=== PATIENT | male | born 1970 | race African-American/Black ===

== ENCOUNTER 2017-04-18 16:59 | Inpatient (IN) | payer OTHER ==
[~2017-04-18] VITALS: Ht 185.4 cm; Wt 63.0 kg
[2017-04-18 17:12] VITALS: BP 157/107; PULSE 55; RESP 16; TEMP 98.5; O2SAT 99
[2017-04-18] MEDS ORDERED: SODIUM CHLOR 0.9% 1000 ML INJ 1,000 ML IV SCH ×2 (17:16→18:37)
--- NOTE | 2017-04-18 17:20 | PD ---
HPI Chief Complaint: GI Complaint Time Seen by Provider: 17:17 Travel History International Travel<30 days: No Contact w/Intl Traveler<30days: No Traveled to known affect area: No History of Present Illness HPI 47-year-old male presents to the emergency department for evaluation of nausea and vomiting for 2 weeks. Patient states that for 2 weeks he's had about 2 episodes of nonbloody nonbilious emesis per day every day. States that he has also had loose watery stool for the past 2 weeks. He states that there are no aggravating or alleviating factors. Denies any abdominal pain, fever, chills, chest pain, shortness of breath, dysuria, hematuria, cough or cold symptoms, body aches. Denies any prior abdominal surgeries. Denies any recent travel or sick contacts. The patient states that he previously drank 8 beers daily until about 2 months ago when he quit drinking altogether. He also quit smoking 2 months ago. No other complaints. PFSH Past Medical History Medical History: Denies Significant Hx Immunizations Current: Yes Past Surgical History Surgical History: No Previous Surgery Social History Alcohol Use: No (quit 02/2017) Tobacco Use: No (quit 02/2017) Substance Use: No Allergies-Medications (Allergen,Severity, Reaction): Coded Allergies: No Known Allergies (Unverified , 04/18/17) Reported Meds & Prescriptions Reported Meds & Active Scripts Active No Active Prescriptions or Reported Medications Review of Systems Except as stated in HPI: all other systems reviewed are Neg Physical Exam Narrative GENERAL: Well-nourished and well-developed pleasant male patient in no acute distress who is nontoxic appearing. SKIN: Warm and dry. HEAD: Normocephalic and atraumatic. EYES: No injection, drainage, or hyphema noted. PERRLA. EOMI. ENT: No nasal drainage noted. Oropharynx is clear. NECK: Supple and the trachea is midline. CARDIOVASCULAR: Regular rate and rhythm. RESPIRATORY: Breath sounds are equal bilaterally with no accessory muscle use, wheezing, rhonchi, or crackles. GASTROINTESTINAL: Abdomen is soft, non-tender, and nondistended. No rebound tenderness or guarding. Negative McBurney's point. Negative Powers's sign. MUSCULOSKELETAL: No obvious deformities, swelling, cyanosis, or ecchymosis is present throughout the upper and lower extremities. Patient has full range of motion without any signs of neurovascular compromise. NEUROLOGICAL: Awake, alert, and oriented. Normal speech and gait. Cranial nerves are grossly intact. Data Data Last Documented VS Vital Signs Date Time Temp Pulse Resp B/P Pulse Ox O2 Delivery O2 Flow Rate FiO2 04/18/17 17:12 98.5 55 16 157/107 99 Room Air Orders Complete Blood Count With Diff (04/18/17 17:16) Comprehensive Metabolic Panel (04/18/17 17:16) Lipase (04/18/17 17:16) Urinalysis - C+S If Indicated (04/18/17 17:16) Iv Access Insert/Monitor (04/18/17 17:16) Ecg Monitoring (04/18/17 17:16) Oximetry (04/18/17 17:16) Ondansetron Inj (Zofran Inj) (04/18/17 17:30) Sodium Chlor 0.9% 1000 Ml Inj (Ns 1000 M (04/18/17 17:16) Sodium Chloride 0.9% Flush (Ns Flush) (04/18/17 17:30) Sodium Chlor 0.9% 1000 Ml Inj (Ns 1000 M (04/18/17 18:37) Urine Culture (04/18/17 18:35) Potassium Chlor 20 Meq Premix (Kcl 20 Me (04/18/17 19:00) Admit Order (Ed Use Only) (04/18/17 19:06) Labs Laboratory Tests Test 04/18/17 04/18/17 17:26 18:35 White Blood Count 5.0 TH/MM3 Red Blood Count 4.99 MIL/MM3 Hemoglobin 14.2 GM/DL Hematocrit 42.6 % Mean Corpuscular Volume 85.4 FL Mean Corpuscular Hemoglobin 28.4 PG Mean Corpuscular Hemoglobin 33.2 % Concent Red Cell Distribution Width 15.3 % Platelet Count 282 TH/MM3 Mean Platelet Volume 8.6 FL Neutrophils (%) (Auto) 78.7 % Lymphocytes (%) (Auto) 10.1 % Monocytes (%) (Auto) 10.2 % Eosinophils (%) (Auto) 0.2 % Basophils (%) (Auto) 0.8 % Neutrophils # (Auto) 4.0 TH/MM3 Lymphocytes # (Auto) 0.5 TH/MM3 Monocytes # (Auto) 0.5 TH/MM3 Eosinophils # (Auto) 0.0 TH/MM3 Basophils # (Auto) 0.0 TH/MM3 CBC Comment DIFF FINAL Differential Comment Sodium Level 134 MEQ/L Potassium Level 3.0 MEQ/L Chloride Level 97 MEQ/L Carbon Dioxide Level 21.9 MEQ/L Anion Gap 15 MEQ/L Blood Urea Nitrogen 14 MG/DL Creatinine 1.37 MG/DL Estimat Glomerular Filtration 67 ML/MIN Rate Random Glucose 87 MG/DL Calcium Level 9.4 MG/DL Total Bilirubin 3.5 MG/DL Aspartate Amino Transf 96 U/L (AST/SGOT) Alanine Aminotransferase 96 U/L (ALT/SGPT) Alkaline Phosphatase 762 U/L Total Protein 7.4 GM/DL Albumin 3.1 GM/DL Lipase 4916 U/L Urine Color DARK-BROWN Urine Turbidity HAZY Urine pH 6.0 Urine Specific [place] 1.031 Urine Protein 100 mg/dL Urine Glucose (UA) NEG mg/dL Urine Ketones NEG mg/dL Urine Occult Blood NEG Urine Nitrite NEG Urine Bilirubin MOD Urine Urobilinogen 8.0 MG/DL Urine Leukocyte Esterase TRACE Urine RBC 2 /hpf Urine WBC 17 /hpf Urine Squamous Epithelial <1 /hpf Cells Urine Hyaline Casts 4 /lpf Urine Mucus FEW /lpf Microscopic Urinalysis Comment CULTURE INDICATED MDM Medical Decision Making Medical Screen Exam Complete: Yes Emergency Medical Condition: Yes Differential Diagnosis Dehydration versus a left-sided abnormality versus pancreatitis versus gastritis versus GERD Narrative Course 47-year-old male presents to the emergency department for evaluation of nausea, vomiting and loose stools for 2 weeks. Patient is afebrile, vital signs are stable. Abdominal examination is benign. IV access is obtained, labs of been drawn and sent. Patient is placed on cardiac telemetry and pulse oximetry monitoring. Patient is administered IV fluids and Zofran 4 mg IV. CBC is unremarkable. CMP shows hypokalemia with a potassium of 3.0. Dehydration with a creatinine 1.37, GFR 67. Elevated LFTs and bilirubin. Lipase is 4916. The patient has acute pancreatitis and dehydration. He'll be admitted to medicine service for IV hydration. I discussed the case with my attending physician Dr. Richards who is aware of the patients history, physical examination findings, and treatment plan. Physician Communication Physician Communication I spoke with Dr. Hardwick [facility] who agrees to admit the patient to his service. Diagnosis Primary Impression: Acute pancreatitis Qualified Code: K85.20 - Alcohol-induced acute pancreatitis, unspecified complication status Additional Impression: Mild dehydration Admitting Information Admitting Physician Requests: Admit Scripts No Active Prescriptions or Reported Meds Deonna Medina Apr 18, 2017 17:20
[2017-04-18] MEDS ORDERED: ONDANSETRON HCL 4 MG/2 ML VIAL IVP ONE (17:30)
[2017-04-18 18:01] LABS: BASOPHIL % 0.8 % (0.0-2.0); EOSINOPHIL % 0.2 % (0.0-4.0); HEMATOCRIT 42.6 % (39.0-51.0); HEMO FLAGS DIFF FINAL; LYMPH % 10.1 % (9.0-44.0); LYMPHOCYTE # 0.5 TH/MM3 (1.0-4.8); MEAN CELL VOLUME 85.4 FL (80.0-100.0); MEAN CORPUSCULAR HEMOGLOBIN 28.4 PG (27.0-34.0); MEAN CORPUSCULAR HGB CONC 33.2 % (32.0-36.0); MONO % 10.2 % (0.0-8.0); NEUT % 78.7 % (16.0-70.0); PLATELET COUNT 282 TH/MM3 (150-450); RED BLOOD COUNT 4.99 MIL/MM3 (4.50-5.90); RED CELL DISTRIBUTION WIDTH 15.3 % (11.6-17.2)
[2017-04-18 18:39] LABS: ALKALINE PHOSPHATASE 762 U/L (45-117); TOTAL BILIRUBIN ADULT 3.5 MG/DL (0.2-1.0)
[2017-04-18 18:45] LABS: ALT (GPT) 96 U/L (12-78); ANION GAP 15 MEQ/L (5-15); AST (GOT) 96 U/L (15-37); BICARBONATE 21.9 MEQ/L (21.0-32.0); BLOOD UREA NITROGEN 14 MG/DL (7-18); CHLORIDE 97 MEQ/L (98-107); GLOMERULAR FILTRATION RATE 67 ML/MIN (>89); SODIUM (NA) 134 MEQ/L (136-145)
[2017-04-18 18:50] LABS: BLOOD, URINE NEG (NEG); GLUCOSE,URINE NEG (NEG); HYALINE CAST, URINE 4 /lpf (RARE); KETONE, URINE NEG (NEG); MUCUS URINE FEW /lpf (OCC); NITRITE,URINE NEG (NEG); SQUAMOUS EPITHELIAL CELL URINE <1 /hpf (0-5)
[2017-04-18 18:51] LABS: COMMENT (UR) CULTURE INDICATED; CULTURE IF INDICATED CULTURE INDICATED; URINE COLOR DARK-BROWN (YELLW/STRAW)
[2017-04-18] MEDS ORDERED: NALOXONE HCL 0.4 MG/ML AMP IV PRN (19:30)
[2017-04-18] MEDS ORDERED: LACTULOSE SYRUP 20 GM/30 ML CUP PO PRN (19:30)
[2017-04-18] MEDS ORDERED: MAGNESIUM HYDROXIDE SUSP 30 ML CUP PO PRN (19:30)
[2017-04-18] MEDS ORDERED: BISACODYL 10 MG SUPP RECTAL PRN (19:30)
[2017-04-18] MEDS ORDERED: SENNOSIDES 8.6 MG TAB PO PRN (19:30)
[2017-04-18] MEDS ORDERED: MORPHINE SULFATE 4 MG/ML INJ IV PRN ×2 (19:30)
--- NOTE | 2017-04-18 19:54 | HHI.HP ---
[facility] Service [place] [facility] Primary Care Physician No Primary Care Physician Admission Diagnosis Acute Pancreatitis, Dehydration Diagnoses: Chief Complaint: N/V/D and abdominal pain Travel History International Travel<30 Days: No Contact w/Intl Traveler <30 Da: No Traveled to Known Affected Are: No History of Present Illness Written by JITENDRA Terrazas acting as scribe for Dr. Barrera] on 04/18/17 at 19:53. 47 y/o male with no medical history presented to the ED with complaints of abdominal pain, nausea and vomiting. Patient states for the last 2 weeks he has not been able to keep anything down and he has been vomiting at least twice a day, with watery stools. Denies any blood in his emesis or stools. Patient states he used to be a heavy drinker but quit 2 months ago. Denies any chest pain, shortness of breath, fever or chills. Patient does complain of a nonproductive cough, that has been getting worse, he also states he was a heavy smoker up until about 2 months ago. Review of Systems Constitutional: DENIES: Fever, Chills Respiratory: COMPLAINS OF: Cough, DENIES: Sputum production, Shortness of breath Cardiovascular: DENIES: Chest pain, Lower Extremity Edema Gastrointestinal: COMPLAINS OF: Abdominal pain, Diarrhea, Nausea, Vomiting Genitourinary: DENIES: Hematuria, Dysuria Musculoskeletal: DENIES: Back pain, Neck pain Integumentary: DENIES: Rash Hematologic/lymphatic: DENIES: Lymphadenopathy Immunologic/allergic: DENIES: Urticaria Neurologic: DENIES: Headache Past Family Social History Past Medical History Patient denies any medical history Past Surgical History Patient denies any surgical history Reported Medications Reported Meds & Active Scripts Active No Active Prescriptions or Reported Medications Allergies: Coded Allergies: No Known Allergies (Unverified , 04/18/17) Active Ordered Medications Current Medications Medications (Trade) Dose Ordered Sig/Shyla Route Start Time Stop Time Status Last Admin Sodium Chloride 2 ml 2 ml UNSCH PRN IV FLUSH 04/18/17 17:30 (KCl 20 Meq Premix Inj) 100 ml @ 50 mls/hr Q2H IV 04/18/17 19:00 04/18/17 22:59 04/18/17 19:59 (Zofran Inj) 4 mg Q6H PRN IVP 04/18/17 19:30 (Morphine Inj) 2 mg Q3H PRN IV 04/18/17 19:30 (Morphine Inj) 4 mg Q3H PRN IV 04/18/17 19:30 (Narcan Inj) 0.4 mg UNSCH PRN IV 04/18/17 19:30 (Porsha-Colace) 1 tab BID PO 04/18/17 21:00 (Milk Of Magnesia Liq) 30 ml Q12H PRN PO 04/18/17 19:30 (Senokot) 17.2 mg Q12H PRN PO 04/18/17 19:30 (Dulcolax Supp) 10 mg DAILY PRN RECTAL 04/18/17 19:30 Lactulose 30 ml 30 ml DAILY PRN PO 04/18/17 19:30 Potassium Chloride/Sodium Chloride 1,000 ml @ 125 mls/hr Q8H IV 04/19/17 02:00 (NS 1000 ml Inj) 1,000 ml @ 125 mls/hr Q8H IV 04/18/17 20:00 04/18/17 20:00 Family History Patient denies any heart disease or cancer or any other family history Social History Tobacco use: Quit 2 months ago, 1 PPD prior for many years Alcohol use: Quit 2 months ago, 8 pk a day prior Physical Exam Vital Signs Vital Signs Date Time Temp Pulse Resp B/P Pulse Ox O2 Delivery O2 Flow Rate FiO2 04/18/17 17:12 98.5 55 16 157/107 99 Room Air Physical Exam GENERAL: This is a well-nourished, well-developed patient, in no apparent distress. SKIN: No rashes, ecchymoses or lesions. Cool and dry. HEAD: Atraumatic. Normocephalic. No temporal or scalp tenderness. EYES: Pupils equal round and reactive. Extraocular motions intact. No scleral icterus. No injection or drainage. ENT: Nose without bleeding, purulent drainage or septal hematoma. Throat without erythema, tonsillar hypertrophy or exudate. Uvula midline. Airway patent. Poor dentition. NECK: Trachea midline. No JVD or lymphadenopathy. Supple, nontender, no meningeal signs. CARDIOVASCULAR: Regular rate and rhythm without murmurs, gallops, or rubs. RESPIRATORY: Clear to auscultation. Breath sounds equal bilaterally. No wheezes , rales, or rhonchi. GASTROINTESTINAL: Abdomen soft, epigastric tenderness, nondistended. No hepato- splenomegaly, or palpable masses. No guarding. MUSCULOSKELETAL: Extremities without clubbing, cyanosis, or edema. No joint tenderness, effusion, or edema noted. No calf tenderness NEUROLOGICAL: Awake and alert. Motor and sensory grossly within normal limits. Normal speech. Laboratory Laboratory Tests Test 04/18/17 04/18/17 17:26 18:35 White Blood Count 5.0 Red Blood Count 4.99 Hemoglobin 14.2 Hematocrit 42.6 Mean Corpuscular Volume 85.4 Mean Corpuscular Hemoglobin 28.4 Mean Corpuscular Hemoglobin 33.2 Concent Red Cell Distribution Width 15.3 Platelet Count 282 Mean Platelet Volume 8.6 Neutrophils (%) (Auto) 78.7 Lymphocytes (%) (Auto) 10.1 Monocytes (%) (Auto) 10.2 Eosinophils (%) (Auto) 0.2 Basophils (%) (Auto) 0.8 Neutrophils # (Auto) 4.0 Lymphocytes # (Auto) 0.5 Monocytes # (Auto) 0.5 Eosinophils # (Auto) 0.0 Basophils # (Auto) 0.0 CBC Comment DIFF FINAL Differential Comment Sodium Level 134 Potassium Level 3.0 Chloride Level 97 Carbon Dioxide Level 21.9 Anion Gap 15 Blood Urea Nitrogen 14 Creatinine 1.37 Estimat Glomerular Filtration 67 Rate Random Glucose 87 Calcium Level 9.4 Total Bilirubin 3.5 Aspartate Amino Transf 96 (AST/SGOT) Alanine Aminotransferase 96 (ALT/SGPT) Alkaline Phosphatase 762 Total Protein 7.4 Albumin 3.1 Lipase 4916 Urine Color DARK-BROWN Urine Turbidity HAZY Urine pH 6.0 Urine Specific [place] 1.031 Urine Protein 100 Urine Glucose (UA) NEG Urine Ketones NEG Urine Occult Blood NEG Urine Nitrite NEG Urine Bilirubin MOD Urine Urobilinogen 8.0 Urine Leukocyte Esterase TRACE Urine RBC 2 Urine WBC 17 Urine Squamous Epithelial <1 Cells Urine Hyaline Casts 4 Urine Mucus FEW Microscopic Urinalysis Comment CULTURE INDICATED Date/Time Procedure Status Source Growth 04/18/17 18:35 Urine Culture Received Urine Clean Catch Pending Result Diagram: 04/18/17 1726 04/18/17 1726 Assessment and Plan Problem List: (1) Acute pancreatitis ICD Code: K85.90 Status: Acute (2) Transaminitis ICD Code: R74.0 Status: Acute (3) ALDO (acute kidney injury) ICD Code: N17.9 Status: Acute Assessment and Plan 47 y/o male with no medical history presented to the ED with complaints of abdominal pain, nausea and vomiting. Patient states for the last 2 weeks he has not been able to keep anything down and he has been vomiting at least twice a day, with watery stools. Acute pancreatitis, lipase 4916, history of alcohol abuse, patient quit 2 months ago -IVF hydration with NS w/ 20 K -Nothing by mouth -Pain management with IV morphine -Lipase in a.m. Transaminitis, likely due to nausea/vomiting, dehydration, history of alcohol abuse AST 96, ALT 96 -CMP in a.m., continue to trend Acute kidney injury, creatinine 1.37, unknown baseline suspected due to dehydration -Continue IVF as above -CMP in a.m. Hypokalemia, potassium 3.0 -Supplement given, recheck in a.m. Cough -- check CXR DVT prophylaxis: SCDs This note was transcribed by francy Vásquez. I, Dr. Rebel Hardwick personally performed the history, physical exam, and medical decision making; and confirmed the accuracy of the information in the transcribed note. Authenticated by Dr. Rebel Hardwick on 04/18/17 at 21:04. Discussed Condition With Patient, RN, and ED physician Physician Certification 2 Midnight Certification Type: Admission for Inpatient Services Order for Inpatient Services The services are ordered in accordance with Medicare regulations or non- Medicare payer requirements, as applicable. In the case of services not specified as inpatient-only, they are appropriately provided as inpatient services in accordance with the 2-midnight benchmark. Estimated LOS (days): 3 days is the estimated time the patient will need to remain in the hospital, assuming treatment plan goals are met and no additional complications. Post-Hospital Plan: Home Problem Qualifiers (1) Acute pancreatitis: Qualified Code: K85.20 - Alcohol-induced acute pancreatitis, unspecified complication status Leatha Vásquez Apr 18, 2017 19:54 Rebel Hardwick MD Apr 18, 2017 21:04
[2017-04-18 19:58] VITALS: BP 143/67; PULSE 81; RESP 17; O2SAT 99
[2017-04-18] MEDS: POTASSIUM CHLOR 20 MEQ PREMIX 100 ML IV SCH ×2 (19:59→22:12)
[2017-04-18] MEDS: SODIUM CHLOR 0.9% 1000 ML INJ 1,000 ML IV SCH (20:00)
[2017-04-18] MEDS ORDERED: NS + KCL 20 MEQ INJ 1,000 ML IV SCH (21:00)
[2017-04-18] MEDS: DOCUSATE SODIUM 50 MG/SENNA 8.6 MG TAB PO SCH (21:00)
[2017-04-18 21:18] VITALS: BP 158/98; PULSE 74; RESP 18; TEMP 97.8; O2SAT 100
[2017-04-18 21:26] VITALS: PULSE 74
--- NOTE | 2017-04-18 21:39 | RADRPT ---
EXAM DATE/TIME: 04/18/2017 21:18 [facility] COMPARISON: No previous studies available for comparison. INDICATIONS : Cough MEDICAL HISTORY : Pancreatitis. SURGICAL HISTORY : None. ENCOUNTER: Initial ACUITY: 1 day PAIN SCORE: 0/10 LOCATION: Bilateral chest FINDINGS: A single AP semierect view of the chest was obtained and demonstrates blunting of the right costophre gilberto angle with hazy opacity at the right lung base. There is a right paratracheal mass measuring up t o approximately 4.3 cm in greatest transverse diameter and 7.3 cm in caudocranial dimension. The left lung is clear. The heart size is at the upper limits of normal. The bony thorax is intact. CONCLUSION: 1. Right hilar mass which could indicate adenopathy. 2. Right effusion with abnormal opacity at the right lung base which may indicate infiltrate. Goldy Suarez MD on April 18, 2017 at 21:36 Board Certified Radiologist. This report was verified electronically.
[2017-04-18] MEDS: ONDANSETRON HCL 4 MG/2 ML VIAL IVP PRN (22:11)
[2017-04-18] MEDS: SODIUM CHLORIDE 0.9% FLUSH 10 ML FLUSH IV FLUSH PRN (22:12)
[2017-04-19] VITALS (7 sets, daily range): BP systolic 146–188; BP diastolic 81–100; PULSE 72–79; RESP 18; TEMP 97.4–98.1; O2SAT 95–96
[2017-04-19] MEDS: NS + KCL 20 MEQ INJ 1,000 ML IV SCH ×4 (00:18→20:23)
[2017-04-19] MEDS: SODIUM CHLOR 0.9% 1000 ML INJ 1,000 ML IV SCH ×2 (04:00→12:00)
[2017-04-19 07:42] LABS: AUTOMATED NEUTROPHIL # 3.2 TH/MM3 (1.8-7.7); BASOPHIL % 0.8 % (0.0-2.0); EOSINOPHIL % 0.3 % (0.0-4.0); HEMATOCRIT 37.8 % (39.0-51.0); HEMO FLAGS DIFF FINAL; LYMPH % 10.1 % (9.0-44.0); LYMPHOCYTE # 0.4 TH/MM3 (1.0-4.8); MEAN CELL VOLUME 85.7 FL (80.0-100.0); MEAN CORPUSCULAR HGB CONC 32.7 % (32.0-36.0); MONO % 12.1 % (0.0-8.0); NEUT % 76.7 % (16.0-70.0); PLATELET COUNT 236 TH/MM3 (150-450); RED BLOOD COUNT 4.41 MIL/MM3 (4.50-5.90); RED CELL DISTRIBUTION WIDTH 15.6 % (11.6-17.2); WHITE BLOOD COUNT 4.2 TH/MM3 (4.0-11.0)
[2017-04-19 07:53] LABS: ALT (GPT) 73 U/L (12-78); ANION GAP 9 MEQ/L (5-15); AST (GOT) 67 U/L (15-37); BICARBONATE 22.8 MEQ/L (21.0-32.0); BLOOD UREA NITROGEN 10 MG/DL (7-18); CHLORIDE 107 MEQ/L (98-107); GLOMERULAR FILTRATION RATE 91 ML/MIN (>89); POTASSIUM 3.7 MEQ/L (3.5-5.1); SODIUM (NA) 139 MEQ/L (136-145)
[2017-04-19 07:57] LABS: ALKALINE PHOSPHATASE 568 U/L (45-117)
[2017-04-19] MEDS ORDERED: PNEUMOCOCCAL POLYVALENT INJ 25 MCG/0.5 ML SYR IM ONE (09:00)
[2017-04-19] MEDS: DOCUSATE SODIUM 50 MG/SENNA 8.6 MG TAB PO SCH ×2 (11:20→20:24)
--- NOTE | 2017-04-19 12:47 | HHI.PR ---
Subjective Remarks No acute events overnight. Patient hypertensive to 188/91. He denies any abdominal or back pain. States he is feeling much better. Requests food. Objective Vitals Vital Signs Date Time Temp Pulse Resp B/P Pulse Ox O2 Delivery O2 Flow Rate FiO2 04/19/17 08:00 97.4 72 18 188/91 96 04/19/17 04:00 98.0 73 18 146/81 95 04/19/17 04:00 Room Air 04/19/17 00:00 98.1 76 18 153/91 95 04/19/17 00:00 Room Air 04/18/17 21:26 74 04/18/17 21:18 97.8 74 18 158/98 100 04/18/17 19:58 81 17 143/67 99 Room Air 04/18/17 17:12 98.5 55 16 157/107 99 Room Air I/O 04/18/17 04/18/17 04/18/17 04/19/17 04/19/17 04/19/17 07:00 15:00 23:00 07:00 15:00 23:00 Intake Total 875 ml Balance 875 ml Intake IV Total 875 ml Result Diagram: 04/19/1762304/19/1724 Objective Remarks Gen.: No acute distress Head: Normocephalic. Atraumatic. EENT: Pupils equal round and reactive to light. Nose without drainage. Airway intact. Throat without injection. Cardiovascular: Regular rate and rhythm. No murmurs, rubs or gallops. Respiratory: Lungs clear to auscultation bilaterally. No wheezes or rhonchi. Abdomen: Soft, nontender, nondistended. No peritoneal signs. Musculoskeletal: No gross deformities. No edema. Skin: No obvious rashes or erythema. Neuro: Sensory and motor grossly intact. Cranial nerves II through XII grossly intact. Psych: Appropriate mood and affect A/P Problem List: (1) Acute pancreatitis ICD Code: K85.90 Status: Acute (2) Transaminitis ICD Code: R74.0 Status: Acute (3) ALDO (acute kidney injury) ICD Code: N17.9 Status: Acute Assessment and Plan 47 y/o male with no medical history presented to the ED with complaints of abdominal pain, nausea and vomiting. Patient states for the last 2 weeks he has not been able to keep anything down and he has been vomiting at least twice a day, with watery stools. Acute pancreatitis, lipase 4916, history of alcohol abuse, patient quit 2 months ago -IVF hydration with NS w/ 20 K at 200 cc/hour -Begin enteral feeding, cautioned patient to go slowly -Pain management with IV morphine -Trend lipase Transaminitis, likely due to nausea/vomiting, dehydration, history of alcohol abuse -AST/ALT downtrending -Continue to follow Acute kidney injury, creatinine 1.37 on admission, unknown baseline suspected due to dehydration. Resolved. -Continue IVF as above -Continue to monitor Hypokalemia, potassium 3.0 -Resolved Cough -Chest x-ray with possible infiltrate in the right lung base and right hilar mass which could indicate adenopathy -No leukocytosis -Treat for CAP with azithromycin and Rocephin UTI -Rocephin as above -Urine culture pending DVT prophylaxis: SCDs, heparin Problem Qualifiers (1) Acute pancreatitis: Qualified Code: K85.20 - Alcohol-induced acute pancreatitis, unspecified complication status Ofe Ledesma MD R3 Apr 19, 2017 12:47
[2017-04-19] MEDS: AZITHROMYCIN 250 MG TAB PO SCH (14:29)
[2017-04-19] MEDS: cefTRIAXone INJ 1,000 MG in SODIUM CHLORIDE 0.9% INJ 100 ML IV SCH (14:29)
[2017-04-19] MEDS: HEPARIN SODIUM - SQ 10,000 UNITS/ML VIAL SQ SCH ×2 (14:29→20:25)
[2017-04-20] VITALS (8 sets, daily range): BP systolic 106–195; BP diastolic 82–95; PULSE 54–79; RESP 18–20; TEMP 97.4–97.8; O2SAT 94–96
[2017-04-20] MEDS: NS + KCL 20 MEQ INJ 1,000 ML IV SCH ×3 (01:40→12:02)
[2017-04-20 01:50] LABS: MAGNESIUM 1.6 MG/DL (1.5-2.5); POTASSIUM 4.1 MEQ/L (3.5-5.1)
[2017-04-20] MEDS: HEPARIN SODIUM - SQ 10,000 UNITS/ML VIAL SQ SCH (05:37)
[2017-04-20] MEDS: DOCUSATE SODIUM 50 MG/SENNA 8.6 MG TAB PO SCH ×2 (09:00→20:28)
[2017-04-20 10:16] LABS: AUTOMATED NEUTROPHIL # 4.3 TH/MM3 (1.8-7.7); BASOPHIL % 0.4 % (0.0-2.0); EOSINOPHIL % 0.1 % (0.0-4.0); HEMATOCRIT 38.3 % (39.0-51.0); HEMO FLAGS DIFF FINAL; LYMPH % 8.5 % (9.0-44.0); LYMPHOCYTE # 0.5 TH/MM3 (1.0-4.8); MEAN CELL VOLUME 85.8 FL (80.0-100.0); MEAN CORPUSCULAR HEMOGLOBIN 28.5 PG (27.0-34.0); MEAN CORPUSCULAR HGB CONC 33.2 % (32.0-36.0); MONO % 10.3 % (0.0-8.0); NEUT % 80.7 % (16.0-70.0); PLATELET COUNT 255 TH/MM3 (150-450); RED BLOOD COUNT 4.46 MIL/MM3 (4.50-5.90); RED CELL DISTRIBUTION WIDTH 15.9 % (11.6-17.2); WHITE BLOOD COUNT 5.4 TH/MM3 (4.0-11.0)
[2017-04-20 10:38] LABS: ANION GAP 13 MEQ/L (5-15); BICARBONATE 18.5 MEQ/L (21.0-32.0); BLOOD UREA NITROGEN 9 MG/DL (7-18); CHLORIDE 111 MEQ/L (98-107); POTASSIUM 4.2 MEQ/L (3.5-5.1); SODIUM (NA) 142 MEQ/L (136-145)
--- NOTE | 2017-04-20 10:39 | HHI.PR ---
Subjective Remarks denies any abdominal pain but still with nausea no diarrhea fever or chills Objective Vitals Vital Signs Date Time Temp Pulse Resp B/P Pulse Ox O2 Delivery O2 Flow Rate FiO2 04/20/17 08:08 97.8 76 19 183/85 94 04/20/17 05:32 97.4 55 20 171/84 95 04/20/17 00:55 97.5 68 18 171/94 95 04/19/17 20:00 Room Air 04/19/17 20:00 98.1 77 18 152/94 95 04/19/17 16:03 96 Room Air 04/19/17 16:00 98.1 74 18 161/97 96 04/19/17 12:00 97.5 79 18 169/100 96 I/O 04/19/17 04/19/17 04/19/17 04/20/17 04/20/17 04/20/17 07:00 15:00 23:00 07:00 15:00 23:00 Intake Total 875 ml 0 ml 785 ml 2178 ml Output Total 0 ml 300 ml Balance 875 ml 0 ml 785 ml 1878 ml Intake Oral 0 ml IV Total 875 ml 785 ml 2178 ml Output Urine Total 0 ml 300 ml # Bowel Movements 0 Result Diagram: 04/20/17 0907 04/20/17 0050 Imaging Last Impressions Chest X-Ray 04/18/17 0000 Signed Impressions: Service Date/Time: Tuesday, April 18, 2017 21:18 - CONCLUSION: 1. Right hilar mass which could indicate adenopathy. 2. Right effusion with abnormal opacity at the right lung base which may indicate infiltrate. Goldy Suarez MD Objective Remarks awake and alet, NAD anicteric multiple supraclavicular lymphadenopathy R > left decrease breath sounds- and decrease vocal fremiti- left base to mid regular rhythm abdomen soft, nontender no tenderness or guarding extremities no edema neuro exam- non focal A/P Problem List: (1) Acute pancreatitis ICD Code: K85.90 Status: Acute (2) Transaminitis ICD Code: R74.0 Status: Acute (3) ALDO (acute kidney injury) ICD Code: N17.9 Status: Acute Assessment and Plan 47 y/o male with no medical history presented to the ED with complaints of abdominal pain, nausea and vomiting. Patient states for the last 2 weeks he has not been able to keep anything down and he has been vomiting at least twice a day, with watery stools. Acute pancreatitis, lipase 4916, history of alcohol abuse, patient quit 2 months ago- clinically feeling better -IVF hydration with NS w/ 20 K at 200 cc/hour - started po- nausea this am with apple juice. check lipase now. Start po if lipase down. monitor nausea -Pain management with IV morphine - get imaging studies Transaminitis, likely due to nausea/vomiting, dehydration, history of alcohol abuse -AST/ALT downtrending -Continue to follow Acute kidney injury, creatinine 1.37 on admission, unknown baseline suspected due to dehydration. Resolved. -Continue IVF - decrease rate -Continue to monitor Hypokalemia, potassium- corrected - cotninue IVF with KCL right Hilar mass - Suspect right Pleural effusion clinically on exam multiple supraclavicular lymphadenopathy r/o Lymphoma - get CT. per patient + weight loss. no hemoptysis. heavy smoker, no family history of cancer -Treat for CAP with azithromycin and Rocephin. consider HIV testing -may need bronchoscopy or LN biopsy UTI -Rocephin as above -Urine culture pending DVT prophylaxis: SCDs, heparin. aptient encourage to up and ambulate Problem Qualifiers (1) Acute pancreatitis: Qualified Code: K85.20 - Alcohol-induced acute pancreatitis, unspecified complication status Evan Mccabe MD Apr 20, 2017 10:39
[2017-04-20 11:14] LABS: ALT (GPT) 56 U/L (12-78); AST (GOT) 54 U/L (15-37)
[2017-04-20 11:22] LABS: ALKALINE PHOSPHATASE 463 U/L (45-117); INDIRECT BILIRUBIN 0.9 MG/DL (0.0-0.8); TOTAL BILIRUBIN ADULT 2.4 MG/DL (0.2-1.0)
[2017-04-20] MEDS: cefTRIAXone INJ 1,000 MG in SODIUM CHLORIDE 0.9% INJ 100 ML IV SCH (12:02)
[2017-04-20] MEDS: AZITHROMYCIN 250 MG TAB PO SCH (13:52)
[2017-04-20 14:27] LABS: INTERNATIONAL NORMALIZED RATIO 1.1 RATIO
--- NOTE | 2017-04-20 20:21 | RADRPT ---
EXAM DATE/TIME: 04/20/2017 19:40 [facility] COMPARISON: No previous studies available for comparison. INDICATIONS : Shortness of breath today. RADIATION DOSE: 10.26 CTDIvol (mGy) ; Combined studies MEDICAL HISTORY : None SURGICAL HISTORY : None. ENCOUNTER: Initial ACUITY: 1 day PAIN SCALE: 0/10 LOCATION: Bilateral chest TECHNIQUE: Volumetric scanning of the chest was performed. Using automated exposure control and adjustment of t he mA and/or kV according to patient size, radiation dose was kept as low as reasonably achievable to obtain optimal diagnostic quality images. DICOM format image data is available electronically for r eview and comparison. FINDINGS: There are large bilateral pleural effusions larger on the right than the left with extensive mediasti nal adenopathy poorly demonstrated because of lack of intravenous contrast. There is extensive axill jaison adenopathy present. There is extensive cervical adenopathy present. Metastatic disease to the li alexi cannot be excluded. Review of bone windows reveals only degenerative changes. CONCLUSION: Bilateral pleural effusions much larger on the right than the left extensive mediastinal and axillary adenopathy. The cervical adenopathy or left axillary adenopathy could be biopsied percutaneously. Lymphoma is lizarraga spected. Kirk Briceño MD FACR on April 20, 2017 at 20:18 Board Certified Radiologist. This report was verified electronically.
--- NOTE | 2017-04-20 20:24 | RADRPT ---
EXAM DATE/TIME: 04/20/2017 19:40 [place] COMPARISON: No previous studies available for comparison. INDICATIONS : Epigastric pain today. ORAL CONTRAST: No oral contrast ingested. RADIATION DOSE: 10.26 CTDIvol (mGy) ; Combined studies MEDICAL HISTORY : None SURGICAL HISTORY : None. ENCOUNTER: Initial ACUITY: 1 day PAIN SCALE: 5/10 LOCATION: epigastric abdomen TECHNIQUE: Volumetric scanning of the abdomen was performed. Using automated exposure control and adjustment of the mA and/or kV according to patient size, radiation dose was kept as low as reasonably achievable to obtain optimal diagnostic quality images. DICOM format image data is available electronically for review and comparison. FINDINGS: Again seen is the large bilateral pleural effusions larger on the right than the left. Examination i s severely compromised and lack of intravenous and oral contrast. There is mesenteric adenopathy and retroperitoneal adenopathy. There is no ascites. Large two needle machine operator and inguinal nodes are noted. Review of bone windows reveals only degenerative changes. CONCLUSION: Limited exam because of lack of intravenous contrast. Lymphoma is suspected. Pathological diagnosis could be obtained with ultrasound biopsy of the cervical, axillary or inguinal adenopathy. Kirk Briceño MD FACR on April 20, 2017 at 20:20 Board Certified Radiologist. This report was verified electronically.
[2017-04-20] MEDS: SODIUM CHLORIDE 0.9% FLUSH 10 ML FLUSH IV FLUSH PRN (20:28)
[2017-04-20] MEDS: ONDANSETRON HCL 4 MG/2 ML VIAL IVP PRN (20:28)
[2017-04-20] MEDS ORDERED: cloNIDine HCL 0.1 MG TAB PO ONE (21:45)
[2017-04-21] VITALS (11 sets, daily range): BP systolic 156–190; BP diastolic 80–105; PULSE 52–81; RESP 18–20; TEMP 97.8–98.1; O2SAT 93–95
[2017-04-21] MEDS: NS + KCL 20 MEQ INJ 1,000 ML IV SCH ×2 (01:45→08:44)
[2017-04-21] MEDS: ONDANSETRON HCL 4 MG/2 ML VIAL IVP PRN ×2 (01:46→19:17)
[2017-04-21 06:34] LABS: TOTAL BILIRUBIN ADULT 2.4 MG/DL (0.2-1.0)
[2017-04-21 06:47] LABS: INDIRECT BILIRUBIN 1.2 MG/DL (0.0-0.8)
[2017-04-21] MEDS: DOCUSATE SODIUM 50 MG/SENNA 8.6 MG TAB PO SCH ×2 (08:42→20:51)
[2017-04-21] MEDS: AZITHROMYCIN 250 MG TAB PO SCH (12:31)
[2017-04-21] MEDS: cefTRIAXone INJ 1,000 MG in SODIUM CHLORIDE 0.9% INJ 100 ML IV SCH (12:31)
--- NOTE | 2017-04-21 13:38 | HHI.PR ---
Subjective Remarks tolerating po bettter no nausea or vomiting no pain Objective Vitals Vital Signs Date Time Temp Pulse Resp B/P Pulse Ox O2 Delivery O2 Flow Rate FiO2 04/21/17 10:07 Room Air 04/21/17 04:00 98.0 81 18 156/80 93 04/20/17 23:00 172/84 04/20/17 20:00 97.4 54 20 190/95 95 04/20/17 20:00 Room Air 04/20/17 20:00 79 04/20/17 16:29 97.8 66 18 106/82 96 I/O 04/20/17 04/20/17 04/20/17 04/21/17 04/21/17 04/21/17 07:00 15:00 23:00 07:00 15:00 23:00 Intake Total 2178 ml 1060 ml 240 ml 2000 ml Output Total 300 ml 800 ml 350 ml Balance 1878 ml 260 ml -110 ml 2000 ml Intake Oral 360 ml 240 ml 480 ml IV Total 2178 ml 700 ml 1520 ml Output Urine Total 300 ml 800 ml 350 ml # Voids 1 # Bowel Movements 1 1 1 Result Diagram: 04/20/17 0907 04/20/17 0907 Imaging Last Impressions Chest CT 04/20/17 0000 Signed Impressions: Service Date/Time: Thursday, April 20, 2017 19:40 - CONCLUSION: Bilateral pleural effusions much larger on the right than the left extensive mediastinal and axillary adenopathy. The cervical adenopathy or left axillary adenopathy could be biopsied percutaneously. Lymphoma is suspected. Kirk Briceño MD FACR Abdomen CT 04/20/17 0000 Signed Impressions: Service Date/Time: Thursday, April 20, 2017 19:40 - CONCLUSION: Limited exam because of lack of intravenous contrast. Lymphoma is suspected. Pathological diagnosis could be obtained with ultrasound biopsy of the cervical, axillary or inguinal adenopathy. Kirk Briceño MD FACR Chest X-Ray 04/18/17 0000 Signed Impressions: Service Date/Time: Tuesday, April 18, 2017 21:18 - CONCLUSION: 1. Right hilar mass which could indicate adenopathy. 2. Right effusion with abnormal opacity at the right lung base which may indicate infiltrate. Goldy Suarez MD Objective Remarks awake and alet, NAD anicteric multiple supraclavicular lymphadenopathy R > left decrease breath sounds- and decrease vocal fremiti- left base to mid regular rhythm abdomen soft, nontender no tenderness or guarding extremities no edema neuro exam- non focal A/P Problem List: (1) Acute pancreatitis ICD Code: K85.90 Status: Acute (2) Transaminitis ICD Code: R74.0 Status: Acute (3) ALDO (acute kidney injury) ICD Code: N17.9 Status: Acute Assessment and Plan 47 y/o male with no medical history presented to the ED with complaints of abdominal pain, nausea and vomiting. Patient states for the last 2 weeks he has not been able to keep anything down and he has been vomiting at least twice a day, with watery stools. Acute pancreatitis, lipase 4916, history of alcohol abuse, patient quit 2 months ago- clinically feeling better -IVF hydration with NS w/ 20 K at 200 cc/hour - started po- nausea this am with apple juice. check lipase now. Start po if lipase down. monitor nausea -Pain management with IV morphine right Hilar mass - right Pleural effusion clinically on exam multiple supraclavicular lymphadenopathy r/o Lymphoma - get CT. per patient + weight loss. no hemoptysis. heavy smoker, no family history of cancer -Treat for CAP with azithromycin and Rocephin. consider HIV testing -may need bronchoscopy or LN biopsy -Oncology consult- and will d/w them how to proceed with diagnostic work up -agrees to HIV testing Transaminitis, likely due to nausea/vomiting, dehydration, history of alcohol abuse -AST/ALT downtrending -Continue to follow Acute kidney injury, creatinine 1.37 on admission, unknown baseline suspected due to dehydration. Resolved. -Continue IVF - decrease rate -Continue to monitor Hypokalemia, potassium- corrected - cotninue IVF with KCL UTI -Rocephin as above -Urine culture pending HTN- started on CCB prn Hydralazine DVT prophylaxis: SCDs, heparin. aptient encourage to up and ambulate Problem Qualifiers (1) Acute pancreatitis: Qualified Code: K85.20 - Alcohol-induced acute pancreatitis, unspecified complication status Evan Mccabe MD Apr 21, 2017 13:38
[2017-04-21] MEDS: NIFEdipine 30 MG SUSTAINED RELEASE TAB PO SCH (17:23)
--- NOTE | 2017-04-21 20:46 | MB ---
cc: SHADY MAYORGA MD DATE OF CONSULTATION 04/21/[address] Mccabe REASON FOR CONSULTATION Oncology is consulted to render opinion regarding a patient with diffuse adenopathy. HISTORY OF PRESENT ILLNESS The patient is a 47-year-old -L[place]ian male with no significant past medical history who presented to the hospital with complaint of increased mid epigastric abdominal pain, nausea, vomiting and diarrhea for the last two weeks. He stated he was in his usual health two weeks ago. He has decreased oral intake. He has lost weight but could not quantify. He denies any fever, chills, night sweats. He denies any chest pain. He has dyspnea on exertion and dry cough. He denies any dysuria, hematuria, denies any bone pain, denies any headache. On presentation, he was found to have pancreatitis. However, CT scan showed diffuse adenopathy in the neck, thorax and abdomen. Oncology is consulted for further evaluation. PAST MEDICAL HISTORY He denies any diabetes or coronary artery disease. PAST SURGICAL HISTORY None FAMILY HISTORY Five brothers, four sisters, all healthy. He has five sons and three daughters, all healthy. SOCIAL HISTORY He smoked a pack a day for at least 40 years and quit about two months ago. He also drinks about an 8 pack a day, quit two months ago. He is currently living with his brother. ALLERGIES No known drug allergy. MEDICATIONS He was not taking any medication prior to admission. REVIEW OF SYSTEMS CONSTITUTIONAL: As above. EYES: Denies any blurred vision, double vision. ENT: Denies mouth sores or voice changes. CARDIOVASCULAR: Denied any chest pressure, palpitation RESPIRATORY: As above. GI: As above. : Denies dysuria, hematuria. MUSCULOSKELETAL: Negative HEMATOLOGY: As above. ENDOCRINE: Negative DERMATOLOGIC: Negative. PSYCHIATRIC: Negative. NEUROLOGIC: negative. PHYSICAL EXAMINATION VITAL SIGNS: Temperature 97.9, blood pressure 173/80, O2 saturation 95% room air. GENERAL: He is alert and oriented x3 in no acute distress. HEENT: Atraumatic, normocephalic. Pupils equal, round and reactive to light. Extraocular muscles are intact. No scleral icterus. Oropharynx dry mucosa. No lesion or thrush. NECK: No thyromegaly. No palpable masses. LYMPHATICS: Palpable bilateral supraclavicular lymph nodes bigger on the right side. He also had bilateral axillary lymph nodes, more prominent on the left side. I could not palpate significant inguinal adenopathy. CARDIOVASCULAR: Regular S1-S2 no murmur. LUNGS: Clear to auscultation bilaterally. No wheezing or rhonchi. ABDOMEN: Soft, a little tender in mid epigastric area. No rebound, no rigidity. EXTREMITIES: No cyanosis, clubbing or edema. BACK No paravertebral tenderness. SKIN: No rash or petechia. NEUROLOGIC: Nonfocal. LABORATORY DATA Reviewed ASSESSMENT 1. Diffuse lymphadenopathy. He has palpable bilateral axillary and supraclavicular lymph nodes. CT of the chest showed extensive mediastinal, cervical and axillary lymph nodes. CT abdomen and pelvis without contrast showed extensive mesenteric and retroperitoneal lymph nodes. There were also lymph node in the obturator and inguinal area. This is worrisome for lymphoma. The patient was tested and negative for HIV three years ago when he was [place]. Repeat HIV test is pending at this time. I went over the CT finding with him. I told him he need a biopsy to establish a tissue diagnosis. Since this is suspicious for lymphoma, I would prefer excisional biopsy which will provide us with a more accurate diagnosis. I am going to consult surgery to see if they can biopsy the left axillary lymph node or the right supraclavicular lymph node. 2. Pancreatitis. He presented with mid epigastric pain, nausea, vomiting, diarrhea. His symptoms have improved. 3. Constitutional symptoms due to pancreatitis and malignancy. RECOMMENDATIONS 1. Reviewed CT 2. Extensive discussion with the patient. 3. Consult surgery to consider excisional biopsy of the right supraclavicular lymph node or the left axillary lymph node. 4. Continue treatment of pancreatitis per primary team. Thank you Dr. Mccabe, for asking me to see this patient. We will follow the patient with you. MD MELA Balbuena/ /5:29 PM /8:31 PM RAVINDRA
[2017-04-21] MEDS: hydrALAZINE HCL 20 MG/ML VIAL IV PUSH PRN (22:23)
[2017-04-21] MEDS: SODIUM CHLORIDE 0.9% FLUSH 10 ML FLUSH IV FLUSH PRN (22:27)
[2017-04-22] VITALS (8 sets, daily range): BP systolic 129–182; BP diastolic 90–98; PULSE 72–93; RESP 16–20; TEMP 97.3–98; O2SAT 93–96
[2017-04-22] MEDS: NS + KCL 20 MEQ INJ 1,000 ML IV SCH ×2 (01:01→11:31)
[2017-04-22] MEDS: ONDANSETRON HCL 4 MG/2 ML VIAL IVP PRN ×3 (02:18→17:45)
--- NOTE | 2017-04-22 08:21 | PD.CONS ---
cc: Geneva Anderson MD HPI Service General Surgery Consult Requested By Dr. Connelly Reason for Consult LEFT axillary lymph node excisional biopsy Primary Care Physician No Primary Care Physician History of Present Illness This is a 47-year-old male with no past medical history presents to the emergency room with a two-week history of nausea vomiting and diarrhea. Prior to this he was in his normal state of health. His liver enzymes were elevated and thought to be pancreatitis. He presented with a urinary tract infection. A CT scan was obtained which shows diffuse adenopathy in the neck, thorax and abdomen. Lymphoma is suspected. A General Surgery consultation has been requested for an excisional lymph node biopsy of the left axillary. Review of Systems Constitutional: COMPLAINS OF: Weight loss, DENIES: Fatigue, Fever, Chills Endocrine: DENIES: Polydipsia, Polyuria, Polyphagia Eyes: DENIES: Diplopia Ears, nose, mouth, throat: DENIES: Hearing loss Respiratory: COMPLAINS OF: Cough Cardiovascular: DENIES: Chest pain Gastrointestinal: COMPLAINS OF: Abdominal pain, Diarrhea, Nausea, Vomiting Genitourinary: COMPLAINS OF: Dysuria, DENIES: Urgency, Hematuria Musculoskeletal: DENIES: Joint pain Integumentary: DENIES: Abnormal pigmentation Hematologic/lymphatic: DENIES: Bruising Immunologic/allergic: DENIES: Eczema Neurologic: DENIES: Abnormal gait, Headache Psychiatric: DENIES: Mood changes, Depression, Hallucinations Past Family Social History Past Medical History None Past Surgical History None Reported Medications None Allergies: Coded Allergies: No Known Allergies (Unverified , 04/18/17) Active Ordered Medications Current Medications Medications (Trade) Dose Ordered Sig/Shyla Route Start Time Stop Time Status Last Admin (NS Flush) 2 ml UNSCH PRN IV FLUSH 04/18/17 17:30 04/21/17 22:27 (Zofran Inj) 4 mg Q6H PRN IVP 04/18/17 19:30 04/22/17 02:18 (Morphine Inj) 2 mg Q3H PRN IV 04/18/17 19:30 (Morphine Inj) 4 mg Q3H PRN IV 04/18/17 19:30 (Narcan Inj) 0.4 mg UNSCH PRN IV 04/18/17 19:30 (Porsha-Colace) 1 tab BID PO 04/18/17 21:00 04/19/17 20:24 (Milk Of Magnesia Liq) 30 ml Q12H PRN PO 04/18/17 19:30 (Senokot) 17.2 mg Q12H PRN PO 04/18/17 19:30 (Dulcolax Supp) 10 mg DAILY PRN RECTAL 04/18/17 19:30 Lactulose 30 ml 30 ml DAILY PRN PO 04/18/17 19:30 Potassium Chloride/Sodium Chloride 1,000 ml @ 83 mls/hr Q12H3M IV 04/19/17 02:00 04/22/17 01:01 (Rocephin Inj/NS Inj) 100 ml @ 200 mls/hr Q24H IV 04/19/17 13:00 04/21/17 12:31 (Heparin Inj) 5,000 units Q8HR SQ 04/19/17 14:00 Hold 04/20/17 05:37 (Zithromax) 500 mg Q24H PO 04/19/17 13:00 04/21/17 12:31 (Procardia Xl) 30 mg DAILY PO 04/21/17 17:00 04/21/17 17:23 (Apresoline Inj) 10 mg Q6HR PRN IV PUSH 04/21/17 17:00 04/21/17 22:23 Family History No family history of cancer Social History Tobacco usesmoked about 1 ppd for many years but quit 2 months ago EtOH usedrink about 8 beers per day for several years but quit 2 months ago Denies illicit drug use Physical Exam Vital Signs Vital Signs Date Time Temp Pulse Resp B/P Pulse Ox O2 Delivery O2 Flow Rate FiO2 04/22/17 04:00 97.4 82 16 160/90 93 04/21/17 23:22 161/88 04/21/17 23:10 80 20 170/85 95 04/21/17 22:55 81 20 170/90 95 04/21/17 22:40 81 20 175/88 95 04/21/17 22:25 97.8 79 20 176/92 95 04/21/17 20:00 78 04/21/17 20:00 97.9 59 18 180/82 95 04/21/17 20:00 Room Air 04/21/17 16:00 98.1 57 20 190/102 95 04/21/17 12:00 97.9 52 20 173/88 95 04/21/17 10:07 Room Air Physical Exam GENERAL: 47 year old male resting in bed in no acute distress. SKIN: Warm and dry. HEAD: Atraumatic. Normocephalic. EYES: Pupils equal and round. No scleral icterus. No injection or drainage. ENT: No nasal bleeding or discharge. Mucous membranes pink and moist. NECK: Trachea midline. Large palpable RIGHT supraclavicular LN. Large palpable LEFT axillary LN. CARDIOVASCULAR: Regular rate and rhythm. RESPIRATORY: No accessory muscle use. Clear to auscultation. Breath sounds equal bilaterally. GASTROINTESTINAL: Abdomen soft, non-tender, nondistended. +BS. MUSCULOSKELETAL: Extremities without clubbing, cyanosis, or edema. NEUROLOGICAL: Awake and alert. No obvious cranial nerve deficits. Motor grossly within normal limits. Five out of 5 muscle strength in the arms and legs. Normal speech. PSYCHIATRIC: Appropriate mood and affect; insight and judgment normal. Laboratory Laboratory Tests Test 04/21/17 14:10 Lactate Dehydrogenase 605 Lipase 566 Date/Time Procedure Status Source Growth 04/18/17 18:35 Urine Culture - Final Complete Urine Clean Catch 10-50,000 CFU/ML MIXED GRAM POSITIVE ... Result Diagram: 04/20/17 0907 04/20/[address] scan was obtained which shows diffuse adenopathy in the neck, thorax and abdomen. Assessment and Plan Assessment and Plan 47 year old male presents with abdominal pain, nausea and vomiting; elevated liver enzymes; dehydration; acute pancreatitis; diffuse adenopathy visualized on CT scan in neck, thorax and abdomen -Plan for OR today for excisional biopsy of LEFT axilla -NPO -Obtain consents -US gallbladder -Pending HIV test; it was negative three years ago -Medical Oncology following; suspicious for lymphoma but will await tissue diagnosis after biopsy -Thank you for this consulI I CERTIFY AND ATTEST THAT I PERSONALLY EXAMINED THE PATIENT IN THEIR ROOM. MS QUINTEROS DOCUMENTED OUR VISIT IN THE EMR AND ENTERED ORDERS UNDER MY DIRECT SUPERVISION. I DISCUSSED THE CARE PLAN WITH THE PATIENT AND HE AGREES WITH BIOPSY GENEVA ANDERSON MD FACS Discussed Condition With Dr. Samaria Quinteros,Toshia B. CHART WRITER Apr 22, 2017 08:21 Geneva Anderson MD Apr 23, 2017 10:48
[2017-04-22] MEDS: DOCUSATE SODIUM 50 MG/SENNA 8.6 MG TAB PO SCH ×2 (09:00→20:21)
[2017-04-22] MEDS ORDERED: MIDAZOLAM HCL 2 MG/2 ML VIAL ONE (09:02)
[2017-04-22] MEDS ORDERED: BUPIVACAINE HCL PF 0.5% 30 ML VIAL INFIL ONE (09:25)
[2017-04-22] MEDS ORDERED: BUPIVACAINE/EPINEPHRINE 0.5% 50 ML VIAL INFIL ONE (09:25)
[2017-04-22] MEDS ORDERED: DO NOT ADM ANY ANTICOAGULANT DRUGS PRN (10:01)
[2017-04-22] MEDS ORDERED: *RESP: ALBUTEROL 2.5 MG/3 ML NEB (PRN) PERIprocedural Use ONLY NEB ONE (10:06)
--- NOTE | 2017-04-22 11:16 | MP ---
cc: GENEVA ANDERSON M.D. DATE OF SURGERY 04/22/2017 PREOPERATIVE DIAGNOSIS Diffuse adenopathy. POSTOPERATIVE DIAGNOSIS Diffuse adenopathy. PROCEDURE PERFORMED Left axillary lymph node excision. SURGEON Geneva Anderson MD ANESTHESIA General LMA COMPLICATIONS None INDICATIONS FOR THE PROCEDURE Mr. Werner is a very pleasant 47-year-old Afro-Iranian male who presented with nausea, vomiting, dehydration and pancreatitis. During his workup, he was noted have diffuse adenopathy. Imaging confirmed diffuse adenopathy. He has seen Dr. Drew Connelly of oncology who requested lymph node biopsy to rule out lymphoma. The risks and benefits of lymph node biopsy was discussed with the patient and he was agreeable. DETAILS The patient was identified, brought to the operating room, placed supine on the operating table. After adequate general anesthesia was achieved with LMA, the left axilla was prepped and draped in standard surgical fashion. Quarter percent Marcaine was injected in the skin and subcutaneous tissue in the left axilla. A transverse incision was made. Dissection was carried down through subcutaneous tissue into the axilla proper. Immediately we encountered multiple enlarged lymph nodes. The largest node was grasped with an Allis clamp and carefully dissected from surrounding tissue using electrocautery Bovie. The node was excised in toto and sent to pathology fresh for evaluation. The wound was copiously irrigated normal saline solution. All bleeding points were controlled electrocautery Bovie. The wound was then irrigated out with normal saline solution. Effluent was noted to be clear. The wound was injected with 20 cc of 0.25% Marcaine. The wound was then closed in two layers using a 2-0 Vicryl and a 4-0 Vicryl. Sterile dressings were applied. The patient was awakened, brought to recovery in stable condition. MD TAMMIE Ortega/MARTHA /11:09 AM /11:14 AM
[2017-04-22] MEDS: NIFEdipine 30 MG SUSTAINED RELEASE TAB PO SCH (11:30)
[2017-04-22] MEDS ORDERED: PHENYLEPH/NS 1000 MCG/10 ML SYR IV ONE (12:00)
[2017-04-22] MEDS ORDERED: PROPOFOL 200 MG/20 ML AMP IV ONE (12:00)
[2017-04-22] MEDS ORDERED: ONDANSETRON HCL 4 MG/2 ML VIAL IV PUSH ONE (12:00)
[2017-04-22] MEDS: AZITHROMYCIN 250 MG TAB PO SCH (12:01)
[2017-04-22] MEDS: cefTRIAXone INJ 1,000 MG in SODIUM CHLORIDE 0.9% INJ 100 ML IV SCH (12:01)
--- NOTE | 2017-04-22 13:21 | PD.ONC.PN ---
Subjective Subjective Remarks Afebrile overnight. Patient just back from recovery after LN biopsy. He is fatigued but otherwise states he feels comfortable. Objective Data Date Time Temp Pulse Resp B/P Pulse Ox O2 Delivery O2 Flow Rate FiO2 04/22/17 12:00 97.3 84 16 145/90 93 04/22/17 11:00 97.6 85 16 140/85 95 Nasal Cannula 3 04/22/17 10:45 85 16 146/79 93 Nasal Cannula 3 04/22/17 10:30 84 16 148/87 92 Nasal Cannula 3 04/22/17 10:15 86 18 143/88 95 Simple Mask 7 04/22/17 10:00 97.7 88 22 140/84 93 Simple Mask 7 04/22/17 08:55 Room Air 04/22/17 08:00 98.0 78 18 129/92 94 04/22/17 04:00 97.4 82 16 160/90 93 04/21/17 23:22 161/88 04/21/17 23:10 80 20 170/85 95 04/21/17 22:55 81 20 170/90 95 04/21/17 22:40 81 20 175/88 95 04/21/17 22:25 97.8 79 20 176/92 95 04/21/17 20:00 78 04/21/17 20:00 97.9 59 18 180/82 95 04/21/17 20:00 Room Air 04/21/17 16:00 98.1 57 20 190/102 95 04/22/17 04/22/17 04/22/17 07:00 15:00 23:00 Intake Total 0 ml 650 ml Output Total 400 ml 5 ml Balance -400 ml 645 ml Result Diagram: 04/20/1790604/20/17906 Laboratory Results Laboratory Tests Test 04/21/17 14:10 Lactate Dehydrogenase 605 U/L Lipase 566 U/L Administered Medications Medications (Trade) Dose Ordered Sig/Shyla Route PRN Reason Start Time Stop Time Status Last Admin Dose Admin Sodium Chloride (NS Flush) 2 ml UNSCH PRN IV FLUSH FLUSH AFTER USING IV ACCESS 04/18/17 17:30 04/21/17 22:27 Ondansetron HCl (Zofran Inj) 4 mg Q6H PRN IVP NAUSEA OR VOMITING 04/18/17 19:30 04/22/17 11:31 Senna/Docusate Sodium 1 tab 1 tab BID PO 04/18/17 21:00 04/19/17 20:24 Potassium Chloride/Sodium Chloride 1,000 ml @ 83 mls/hr Q12H3M IV 04/19/17 02:00 04/22/17 11:31 Ceftriaxone Sodium/Sodium Chloride (Rocephin Inj/NS Inj) 100 ml @ 200 mls/hr Q24H IV 04/19/17 13:00 04/22/17 12:01 Heparin Sodium (Porcine) (Heparin Inj) 5,000 units Q8HR SQ 04/19/17 14:00 Hold 04/20/17 05:37 Azithromycin (Zithromax) 500 mg Q24H PO 04/19/17 13:00 04/22/17 12:01 Nifedipine (Procardia Xl) 30 mg DAILY PO 04/21/17 17:00 04/22/17 11:30 Hydralazine HCl (Apresoline Inj) 10 mg Q6HR PRN IV PUSH SBP>160, DBP>90 04/21/17 17:00 04/21/17 22:23 Objective Remarks GENERAL: Young man, somnolent, lying in bed in nad. SKIN: Warm and dry. bandage along left axilla HEAD: Normocephalic. EYES: no injection or drainage. NECK: Supple, trachea midline. LYMPHATIC: +axillary, cervical and inguinal LAD CARDIOVASCULAR: Regular rate and rhythm RESPIRATORY: Breath sounds equal bilaterally. No accessory muscle use. GASTROINTESTINAL: Abdomen soft, non-tender, nondistended. EXTREMITIES: No cyanosis MUSCULOSKELETAL: Adequate muscle tone. NEUROLOGICAL: No obvious focal deficit. Awake, alert, and oriented x3. Assessment/Plan Problem List: (1) Adenopathy Status: Acute Plan: --has palpable bilateral axillary and supraclavicular lymph nodes. --CT of the chest --> extensive mediastinal, cervical and axillary lymph nodes. --CT abdomen and pelvis-->extensive mesenteric and retroperitoneal lymph nodes.also lymph node in the obturator and inguinal area. --is worrisome for lymphoma. --HIV test is pending at this time. --s/p LN biopsy on 04/22, pathology pending. (2) Acute pancreatitis Status: Acute Plan: --treatment per primary team Assessment 47y/o male admitted with pancreatitis, oncology consulted for diffuse adenopathy. Plan 1. await pathology 2. monitor CBC 3. supportive care Attending Statement The exam, history, and the medical decision-making described in the above note were completed with the assistance of the mid-level provider. I reviewed and agree with the findings presented. I attest that I had a [id number] encounter with the patient on the same day, and personally performed and documented my assessment and findings in the medical record. Abdominal pain/N/ V improved. Palpable right supraclav and left axillary LN. HIV test pending. Await LN biopsy. Problem Qualifiers (1) Acute pancreatitis: Qualified Code: K85.20 - Alcohol-induced acute pancreatitis, unspecified complication status Brenda Platt Apr 22, 2017 13:21 Ruslan Connelly MD Apr 22, 2017 13:36
--- NOTE | 2017-04-22 16:59 | HHI.PR ---
Subjective Remarks had left axillary LN excision done today after procedure had some nausea and 1 episode of vomiting now hungry Objective Vitals Vital Signs Date Time Temp Pulse Resp B/P Pulse Ox O2 Delivery O2 Flow Rate FiO2 04/22/17 16:00 97.9 88 20 158/90 94 04/22/17 12:00 97.3 84 16 145/90 93 04/22/17 11:00 97.6 85 16 140/85 95 Nasal Cannula 3 04/22/17 10:45 85 16 146/79 93 Nasal Cannula 3 04/22/17 10:30 84 16 148/87 92 Nasal Cannula 3 04/22/17 10:15 86 18 143/88 95 Simple Mask 7 04/22/17 10:00 97.7 88 22 140/84 93 Simple Mask 7 04/22/17 08:55 Room Air 04/22/17 08:00 98.0 78 18 129/92 94 04/22/17 04:00 97.4 82 16 160/90 93 04/21/17 23:22 161/88 04/21/17 23:10 80 20 170/85 95 04/21/17 22:55 81 20 170/90 95 04/21/17 22:40 81 20 175/88 95 04/21/17 22:25 97.8 79 20 176/92 95 04/21/17 20:00 78 04/21/17 20:00 97.9 59 18 180/82 95 04/21/17 20:00 Room Air I/O 04/21/17 04/21/17 04/21/17 04/22/17 04/22/17 04/22/17 07:00 15:00 23:00 07:00 15:00 23:00 Intake Total 2000 ml 0 ml 480 ml 0 ml 650 ml Output Total 350 ml 575 ml 400 ml 5 ml Balance 2000 ml -350 ml -95 ml -400 ml 645 ml Intake Oral 480 ml 0 ml 480 ml 0 ml 0 ml IV Total 1520 ml 100 ml Other 550 ml Output Urine Total 350 ml 575 ml 400 ml Estimated Blood Loss 5 ml # Voids 1 1 # Bowel Movements 1 1 1 0 1 Result Diagram: 04/20/17 0907 04/20/17 0907 Imaging Last Impressions Chest CT 04/20/17 0000 Signed Impressions: Service Date/Time: Thursday, April 20, 2017 19:40 - CONCLUSION: Bilateral pleural effusions much larger on the right than the left extensive mediastinal and axillary adenopathy. The cervical adenopathy or left axillary adenopathy could be biopsied percutaneously. Lymphoma is suspected. Kirk Briceño MD FACR Abdomen CT 04/20/17 0000 Signed Impressions: Service Date/Time: Thursday, April 20, 2017 19:40 - CONCLUSION: Limited exam because of lack of intravenous contrast. Lymphoma is suspected. Pathological diagnosis could be obtained with ultrasound biopsy of the cervical, axillary or inguinal adenopathy. Kirk Briceño MD FACR Chest X-Ray 04/18/17 0000 Signed Impressions: Service Date/Time: Tuesday, April 18, 2017 21:18 - CONCLUSION: 1. Right hilar mass which could indicate adenopathy. 2. Right effusion with abnormal opacity at the right lung base which may indicate infiltrate. Goldy Suarez MD Objective Remarks awake and alet, NAD anicteric multiple supraclavicular lymphadenopathy R > left decrease breath sounds- and decrease vocal fremiti- left base to mid regular rhythm abdomen soft, nontender no tenderness or guarding extremities no edema neuro exam- non focal Procedures 04/[address] excision biopsy A/P Problem List: (1) Acute pancreatitis ICD Code: K85.90 Status: Acute (2) Transaminitis ICD Code: R74.0 Status: Acute (3) ALDO (acute kidney injury) ICD Code: N17.9 Status: Acute Assessment and Plan 47 y/o male with no medical history presented to the ED with complaints of abdominal pain, nausea and vomiting. Patient states for the last 2 weeks he has not been able to keep anything down and he has been vomiting at least twice a day, with watery stools. Acute pancreatitis, lipase 4916, history of alcohol abuse, patient quit 2 months ago- clinically feeling better- slight nausea today post procdure- maybe from anesthesea -IVF hydration with NS w/ 20 K - check lipase, CMP -Pain management with IV morphine right Hilar mass - r/o Lymphoma S/P excision biopsy of left axillary right Pleural effusion clinically on exam multiple supraclavicular lymphadenopathy r/o Lymphoma - get CT. per patient + weight loss. no hemoptysis. heavy smoker, no family history of cancer -Treat for CAP with azithromycin and Rocephin. consider HIV testing -may need bronchoscopy or LN biopsy -Oncology ff -HIV pending Transaminitis, likely due to nausea/vomiting, dehydration, history of alcohol abuse -AST/ALT downtrending -Continue to follow Acute kidney injury, creatinine 1.37 on admission, unknown baseline suspected due to dehydration. Resolved. -Continue IVF - decrease rate -Continue to monitor Hypokalemia, potassium- corrected - cotninue IVF with KCL UTI -Rocephin as above -Urine culture pending HTN- better readings on CCB prn Hydralazine DVT prophylaxis: SCDs, heparin. aptient encourage to up and ambulate Problem Qualifiers (1) Acute pancreatitis: Qualified Code: K85.20 - Alcohol-induced acute pancreatitis, unspecified complication status Evan Mccabe MD Apr 22, 2017 16:59
[2017-04-22 18:56] LABS: ANION GAP 12 MEQ/L (5-15); AST (GOT) 44 U/L (15-37); BICARBONATE 18.2 MEQ/L (21.0-32.0); BLOOD UREA NITROGEN 8 MG/DL (7-18); CHLORIDE 106 MEQ/L (98-107); GLOMERULAR FILTRATION RATE 125 ML/MIN (>89); POTASSIUM 4.3 MEQ/L (3.5-5.1); SODIUM (NA) 136 MEQ/L (136-145)
[2017-04-22 18:57] LABS: ALT (GPT) 46 U/L (12-78)
[2017-04-22 18:59] LABS: ALKALINE PHOSPHATASE 356 U/L (45-117); TOTAL BILIRUBIN ADULT 1.8 MG/DL (0.2-1.0)
--- NOTE | 2017-04-22 20:27 | RADRPT ---
EXAM DATE/TIME: 04/22/2017 07:35 [facility] COMPARISON: CT ABDOMEN W/O CONTRAST, April 20, 2017, 19:40. INDICATIONS : Right upper quadrant pain. Elevated lipase. MEDICAL HISTORY : Nausea. Vomiting. Dysuria. Abdominal pain. SURGICAL HISTORY : None. ENCOUNTER: Initial ACUITY: 1 day PAIN SCORE: 0/10 LOCATION: Right upper quadrant MEASUREMENTS: LIVER: 15.9 cm length COMMON DUCT: 3 mm RIGHT KIDNEY: 11.2 x 6.1 x 5.1 cm FINDINGS: LIVER: Liver is small without focal echogenic area mid liver. This is nonspecific. COMMON DUCT: No intraluminal mass or stone visualized. GALLBLADDER: Mild wall thickening without stones. PANCREAS: Not visualized RIGHT KIDNEY: No evidence of hydronephrosis, stone, or mass. CONCLUSION: Small liver with focal abdomen only incompletely evaluated. Large right pleural effusion. effusion. Kirk Briceño MD FACR on April 22, 2017 at 20:24 Board Certified Radiologist. This report was verified electronically.
[2017-04-22] MEDS: hydrALAZINE HCL 20 MG/ML VIAL IV PUSH PRN (20:57)
[2017-04-23] VITALS: BP 152/90; PULSE 79; RESP 18; TEMP 98.2; O2SAT 96
[2017-04-23] MEDS: NS + KCL 20 MEQ INJ 1,000 ML IV SCH (01:19)
[2017-04-23 04:00] VITALS: BP 154/70; PULSE 85; RESP 20; TEMP 97.3; O2SAT 97
[2017-04-23] MEDS: ONDANSETRON HCL 4 MG/2 ML VIAL IVP PRN ×4 (04:04→22:08)
[2017-04-23 08:00] VITALS: BP 148/88; PULSE 79; PULSE 85; RESP 20; TEMP 97.2; O2SAT 95
[2017-04-23] MEDS: DOCUSATE SODIUM 50 MG/SENNA 8.6 MG TAB PO SCH ×2 (08:17→21:00)
[2017-04-23] MEDS: NIFEdipine 30 MG SUSTAINED RELEASE TAB PO SCH (08:17)
--- NOTE | 2017-04-23 09:01 | HHI.PR ---
Subjective Remarks feeling better tolerating po better no nausea or vomiting Objective Vitals Vital Signs Date Time Temp Pulse Resp B/P Pulse Ox O2 Delivery O2 Flow Rate FiO2 04/23/17 04:00 97.3 85 20 154/70 97 04/23/17 00:00 98.2 79 18 152/90 96 04/22/17 22:00 97.8 72 18 173/97 96 182/98 04/22/17 21:35 154/92 04/22/17 20:25 Room Air 04/22/17 20:13 78 04/22/17 16:00 97.9 88 20 158/90 94 04/22/17 12:00 97.3 84 16 145/90 93 04/22/17 11:00 97.6 85 16 140/85 95 Nasal Cannula 3 04/22/17 10:45 85 16 146/79 93 Nasal Cannula 3 04/22/17 10:30 84 16 148/87 92 Nasal Cannula 3 04/22/17 10:15 86 18 143/88 95 Simple Mask 7 04/22/17 10:00 97.7 88 22 140/84 93 Simple Mask 7 I/O 04/22/17 04/22/17 04/22/17 04/23/17 04/23/17 04/23/17 07:00 15:00 23:00 07:00 15:00 23:00 Intake Total 0 ml 650 ml 120 ml 660 ml Output Total 400 ml 5 ml Balance -400 ml 645 ml 120 ml 660 ml Intake Oral 0 ml 0 ml 120 ml IV Total 100 ml 660 ml Other 550 ml Output Urine Total 400 ml Estimated Blood Loss 5 ml # Voids 1 3 # Bowel Movements 0 1 0 Result Diagram: 04/20/17 0907 04/22/17 1830 Imaging Last Impressions Gall Bladder Ultrasound 04/22/17 0000 Signed Impressions: Service Date/Time: Saturday, April 22, 2017 07:35 - CONCLUSION: Small liver with focal abdomen only incompletely evaluated. Large right pleural effusion. effusion. Kirk Briceño MD FACR Chest CT 04/20/17 0000 Signed Impressions: Service Date/Time: Thursday, April 20, 2017 19:40 - CONCLUSION: Bilateral pleural effusions much larger on the right than the left extensive mediastinal and axillary adenopathy. The cervical adenopathy or left axillary adenopathy could be biopsied percutaneously. Lymphoma is suspected. Kirk Briceño MD FACR Abdomen CT 04/20/17 0000 Signed Impressions: Service Date/Time: Thursday, April 20, 2017 19:40 - CONCLUSION: Limited exam because of lack of intravenous contrast. Lymphoma is suspected. Pathological diagnosis could be obtained with ultrasound biopsy of the cervical, axillary or inguinal adenopathy. Kirk Briceño MD FACR Chest X-Ray 04/18/17 0000 Signed Impressions: Service Date/Time: Tuesday, April 18, 2017 21:18 - CONCLUSION: 1. Right hilar mass which could indicate adenopathy. 2. Right effusion with abnormal opacity at the right lung base which may indicate infiltrate. Goldy Suarez MD Objective Remarks awake and alet, NAD anicteric multiple supraclavicular lymphadenopathy R > left left axillary post excision biopsy site- no bleeding decrease breath sounds- and decrease vocal fremiti- left base to mid regular rhythm abdomen soft, nontender no tenderness or guarding extremities no edema neuro exam- non focal Procedures 04/[address] excision biopsy A/P Problem List: (1) Acute pancreatitis ICD Code: K85.90 Status: Acute (2) Transaminitis ICD Code: R74.0 Status: Acute (3) ALDO (acute kidney injury) ICD Code: N17.9 Status: Acute Assessment and Plan 47 y/o male with no medical history presented to the ED with complaints of abdominal pain, nausea and vomiting. Patient states for the last 2 weeks he has not been able to keep anything down and he has been vomiting at least twice a day, with watery stools. Acute pancreatitis, lipase 4916, history of alcohol abuse, patient quit 2 months ago- clinically feeling better- REsolved -Pain management with IV morphine right Hilar mass - right Pleural effusion - encourage increase ambulation and check sats if gets symptomatic- consider thoracentesis if symptomatic multiple supraclavicular lymphadenopathy r/o Lymphoma S/P excision biopsy- left axillary LN- 04/22 -ff pathology - + weight loss. no hemoptysis. heavy smoker, no family history of cancer -Treat for CAP with azithromycin and Rocephin.- doubt infection- will DC antibiotics after today -Oncology ff- - HIV test pending Transaminitis, likely due to nausea/vomiting, dehydration, history of alcohol abuse -AST/ALT downtrending -Continue to follow Acute kidney injury, creatinine 1.37 on admission, unknown baseline suspected due to dehydration. Resolved. -Continue IVF - decrease rate -Continue to monitor Hypokalemia, potassium- corrected - continue IVF with KCL UTI -Rocephin as above -Urine culture negative - DC antibiotics HTN- started on CCB prn Hydralazine DVT prophylaxis: SCDs, heparin. patient -encourage to up and ambulate Problem Qualifiers (1) Acute pancreatitis: Qualified Code: K85.20 - Alcohol-induced acute pancreatitis, unspecified complication status Evan Mccabe MD Apr 23, 2017 09:00 Evan Mccabe MD Apr 23, 2017 09:00
--- NOTE | 2017-04-23 11:08 | HHI.PR ---
Subjective Subjective Notes Resting in bed Had some emesis last night but none today Tolerated breakfast with no issues Objective Vitals/I&O Vital Signs Date Time Temp Pulse Resp B/P Pulse Ox O2 Delivery O2 Flow Rate FiO2 04/23/17 08:00 97.2 79 20 148/88 95 04/22/17 20:25 Room Air 04/22/17 11:00 3 Labs Laboratory Tests Test 04/22/17 18:30 Sodium Level 136 Potassium Level 4.3 Chloride Level 106 Carbon Dioxide Level 18.2 Anion Gap 12 Blood Urea Nitrogen 8 Creatinine 0.80 Estimat Glomerular Filtration 125 Rate Random Glucose 95 Calcium Level 8.8 Total Bilirubin 1.8 Aspartate Amino Transf 44 (AST/SGOT) Alanine Aminotransferase 46 (ALT/SGPT) Alkaline Phosphatase 356 Total Protein 6.5 Albumin 2.4 Lipase 375 Date/Time Procedure Status Source Growth 04/18/17 18:35 Urine Culture - Final Complete Urine Clean Catch 10-50,000 CFU/ML MIXED GRAM POSITIVE ... Radiology A CT scan was obtained which shows diffuse adenopathy in the neck, thorax and abdomen. Cardiovascular: Regular Lungs: Clear Abdomen: Non-distended, Non-tender Extremities: Other Narrative Exam LEFT axilla--- Steri strips in place; no swelling; tender to palpation A/P Assessment and Plan 47 year old male POD1 LEFT axilla excision LN biopsy -Regular diet -Pain control -Await pathology results---Dr. Connelly following -Okay to shower; Remove Steri strips in 10 days -GS clear for DC -GS will sign off; please call with questions -Follow up PRN in office Toshia Quinteros Apr 23, 2017 11:08
[2017-04-23 12:00] VITALS: BP 170/92; PULSE 82; RESP 20; TEMP 97.4; O2SAT 96
--- NOTE | 2017-04-23 12:42 | HHI.PR ---
Subjective Remarks feeling better- still with poo rpo- tolerating gello no vomiting but with some slight nausea no abdominal pain Objective Vitals Vital Signs Date Time Temp Pulse Resp B/P Pulse Ox O2 Delivery O2 Flow Rate FiO2 04/23/17 08:00 97.2 79 20 148/88 95 04/23/17 04:00 97.3 85 20 154/70 97 04/23/17 00:00 98.2 79 18 152/90 96 04/22/17 22:00 97.8 72 18 173/97 96 182/98 04/22/17 21:35 154/92 04/22/17 20:25 Room Air 04/22/17 20:13 78 04/22/17 16:00 97.9 88 20 158/90 94 I/O 04/22/17 04/22/17 04/22/17 04/23/17 04/23/17 04/23/17 07:00 15:00 23:00 07:00 15:00 23:00 Intake Total 0 ml 650 ml 120 ml 660 ml Output Total 400 ml 5 ml Balance -400 ml 645 ml 120 ml 660 ml Intake Oral 0 ml 0 ml 120 ml IV Total 100 ml 660 ml Other 550 ml Output Urine Total 400 ml Estimated Blood Loss 5 ml # Voids 1 3 # Bowel Movements 0 1 0 Result Diagram: 04/20/17 0907 04/22/17 1830 Imaging Last Impressions Gall Bladder Ultrasound 04/22/17 0000 Signed Impressions: Service Date/Time: Saturday, April 22, 2017 07:35 - CONCLUSION: Small liver with focal abdomen only incompletely evaluated. Large right pleural effusion. effusion. Kirk Briceño MD FACR Chest CT 04/20/17 0000 Signed Impressions: Service Date/Time: Thursday, April 20, 2017 19:40 - CONCLUSION: Bilateral pleural effusions much larger on the right than the left extensive mediastinal and axillary adenopathy. The cervical adenopathy or left axillary adenopathy could be biopsied percutaneously. Lymphoma is suspected. Kirk Briceño MD FACR Abdomen CT 04/20/17 0000 Signed Impressions: Service Date/Time: Thursday, April 20, 2017 19:40 - CONCLUSION: Limited exam because of lack of intravenous contrast. Lymphoma is suspected. Pathological diagnosis could be obtained with ultrasound biopsy of the cervical, axillary or inguinal adenopathy. Kirk Briceño MD FACR Chest X-Ray 04/18/17 0000 Signed Impressions: Service Date/Time: Tuesday, April 18, 2017 21:18 - CONCLUSION: 1. Right hilar mass which could indicate adenopathy. 2. Right effusion with abnormal opacity at the right lung base which may indicate infiltrate. Goldy Suarez MD Objective Remarks awake and alet, NAD anicteric multiple supraclavicular lymphadenopathy R > left left axillary post excision biopsy site- no bleeding decrease breath sounds- and decrease vocal fremiti- left base to mid regular rhythm abdomen soft, nontender no tenderness or guarding extremities no edema neuro exam- non focal Procedures 04/[address] excision biopsy A/P Problem List: (1) Acute pancreatitis ICD Code: K85.90 Status: Acute (2) Transaminitis ICD Code: R74.0 Status: Acute (3) ALDO (acute kidney injury) ICD Code: N17.9 Status: Acute Assessment and Plan 47 y/o male with no medical history presented to the ED with complaints of abdominal pain, nausea and vomiting. Patient states for the last 2 weeks he has not been able to keep anything down and he has been vomiting at least twice a day, with watery stools. Acute pancreatitis, lipase 4916, history of alcohol abuse, patient quit 2 months ago- clinically feeling better- REsolved -Pain management with IV morphine -continue IVF till po much improved right Hilar mass - right Pleural effusion - encourage increase ambulation and check sats if gets symptomatic- consider thoracentesis if symptomatic multiple supraclavicular lymphadenopathy r/o Lymphoma S/P excision biopsy- left axillary LN- 04/22 -ff pathology - + weight loss. no hemoptysis. heavy smoker, no family history of cancer -Treat for CAP with azithromycin and Rocephin.- doubt infection- will DC antibiotics after today -Oncology ff- - HIV test pending Transaminitis, likely due to nausea/vomiting, dehydration, history of alcohol abuse -AST/ALT downtrending -Continue to follow Acute kidney injury, creatinine 1.37 on admission, unknown baseline suspected due to dehydration. Resolved. -Continue IVF - decrease rate -Continue to monitor Hypokalemia, potassium- corrected - continue IVF with UTI -Rocephin as above -Urine culture negative - DC antibiotics HTN- started on CCB prn Hydralazine DVT prophylaxis: SCDs, heparin. patient -encourage to up and ambulate Problem Qualifiers (1) Acute pancreatitis: Qualified Code: K85.20 - Alcohol-induced acute pancreatitis, unspecified complication status Evan Mccabe MD Apr 23, 2017 12:42
[2017-04-23] MEDS ORDERED: DEXT 5%-NACL 0.9% 1000 ML INJ 1,000 ML IV SCH (12:45)
[2017-04-23] MEDS: AZITHROMYCIN 250 MG TAB PO SCH (13:15)
[2017-04-23] MEDS: cefTRIAXone INJ 1,000 MG in SODIUM CHLORIDE 0.9% INJ 100 ML IV SCH (13:16)
--- NOTE | 2017-04-23 13:18 | PD.ONC.PN ---
Subjective Subjective Remarks Afebrile overnight. Patient resting comfortably in nad. No pain. Objective Data Date Time Temp Pulse Resp B/P Pulse Ox O2 Delivery O2 Flow Rate FiO2 04/23/17 12:00 97.4 82 20 170/92 96 04/23/17 08:00 97.2 79 20 148/88 95 04/23/17 04:00 97.3 85 20 154/70 97 04/23/17 00:00 98.2 79 18 152/90 96 04/22/17 22:00 97.8 72 18 173/97 96 182/98 04/22/17 21:35 154/92 04/22/17 20:25 Room Air 04/22/17 20:13 78 04/22/17 16:00 97.9 88 20 158/90 94 Result Diagram: 04/20/17 0904/22/17 1830 Laboratory Results Laboratory Tests Test 04/22/17 18:30 Sodium Level 136 MEQ/L Potassium Level 4.3 MEQ/L Chloride Level 106 MEQ/L Carbon Dioxide Level 18.2 MEQ/L Anion Gap 12 MEQ/L Blood Urea Nitrogen 8 MG/DL Creatinine 0.80 MG/DL Estimat Glomerular Filtration 125 ML/MIN Rate Random Glucose 95 MG/DL Calcium Level 8.8 MG/DL Total Bilirubin 1.8 MG/DL Aspartate Amino Transf 44 U/L (AST/SGOT) Alanine Aminotransferase 46 U/L (ALT/SGPT) Alkaline Phosphatase 356 U/L Total Protein 6.5 GM/DL Albumin 2.4 GM/DL Lipase 375 U/L Administered Medications Medications (Trade) Dose Ordered Sig/Shyla Route PRN Reason Start Time Stop Time Status Last Admin Dose Admin Sodium Chloride (NS Flush) 2 ml UNSCH PRN IV FLUSH FLUSH AFTER USING IV ACCESS 04/18/17 17:30 04/21/17 22:27 Ondansetron HCl (Zofran Inj) 4 mg Q6H PRN IVP NAUSEA OR VOMITING 04/18/17 19:30 04/23/17 09:36 Senna/Docusate Sodium 1 tab 1 tab BID PO 04/18/17 21:00 04/19/17 20:24 Ceftriaxone Sodium/Sodium Chloride (Rocephin Inj/NS Inj) 100 ml @ 200 mls/hr Q24H IV 04/19/17 13:00 04/23/17 13:16 Heparin Sodium (Porcine) (Heparin Inj) 5,000 units Q8HR SQ 04/19/17 14:00 Hold 04/20/17 05:37 Azithromycin (Zithromax) 500 mg Q24H PO 04/19/17 13:00 04/23/17 13:15 Nifedipine (Procardia Xl) 30 mg DAILY PO 04/21/17 17:00 04/23/17 08:17 Hydralazine HCl (Apresoline Inj) 10 mg Q6HR PRN IV PUSH SBP>160, DBP>90 04/21/17 17:00 04/22/17 20:57 Objective Remarks GENERAL: Young man, somnolent, lying in bed in nad. SKIN: Warm and dry. bandage, left axilla HEAD: Normocephalic. EYES: no injection or drainage. NECK: Supple, trachea midline. LYMPHATIC: +axillary, cervical and inguinal LAD CARDIOVASCULAR: Regular rate and rhythm RESPIRATORY: Breath sounds equal bilaterally. No accessory muscle use. GASTROINTESTINAL: Abdomen soft, non-tender, nondistended. EXTREMITIES: No cyanosis NEUROLOGICAL: awake and alert, normal speech. Assessment/Plan Problem List: (1) Adenopathy Status: Acute Plan: --has palpable bilateral axillary and supraclavicular lymph nodes. --CT of the chest --> extensive mediastinal, cervical and axillary lymph nodes. --CT abdomen and pelvis-->extensive mesenteric and retroperitoneal lymph nodes.also lymph node in the obturator and inguinal area. --is worrisome for lymphoma. --HIV test is pending at this time. --s/p LN biopsy on 04/22, pathology pending. (2) Acute pancreatitis Status: Acute Plan: --treatment per primary team Assessment 47y/o male admitted with pancreatitis, oncology consulted for diffuse adenopathy. Plan 1. await pathology 2. monitor CBC Attending Statement The exam, history, and the medical decision-making described in the above note were completed with the assistance of the mid-level provider. I reviewed and agree with the findings presented. I attest that I had a [id number] encounter with the patient on the same day, and personally performed and documented my assessment and findings in the medical record. Abdominal pain improved. s/p left axillary LN biopsy, path pending, HIV pending. Suspicious for lymphoma. Problem Qualifiers (1) Acute pancreatitis: Qualified Code: K85.20 - Alcohol-induced acute pancreatitis, unspecified complication status Brenda Platt Apr 23, 2017 13:18 Ruslan Connelly MD Apr 23, 2017 13:22
[2017-04-23 16:00] VITALS: BP 146/82; PULSE 87; RESP 20; TEMP 98.2; O2SAT 93
[2017-04-23 20:00] VITALS: BP 150/94; PULSE 88; PULSE 99; RESP 20; TEMP 97.6; O2SAT 94
[2017-04-24] VITALS: BP 158/95; PULSE 69; RESP 20; TEMP 98.1; O2SAT 94
[2017-04-24 04:00] VITALS: BP 130/88; PULSE 57; RESP 20; TEMP 98.4; O2SAT 93
[2017-04-24] MEDS: ONDANSETRON HCL 4 MG/2 ML VIAL IVP PRN ×4 (04:26→21:30)
[2017-04-24 08:00] VITALS: BP 161/84; PULSE 74; PULSE 84; RESP 16; TEMP 97.9; O2SAT 92
[2017-04-24 08:02] LABS: AUTOMATED NEUTROPHIL # 3.5 TH/MM3 (1.8-7.7); BASOPHIL % 0.4 % (0.0-2.0); EOSINOPHIL % 0.1 % (0.0-4.0); HEMO FLAGS DIFF FINAL; LYMPH % 7.4 % (9.0-44.0); LYMPHOCYTE # 0.3 TH/MM3 (1.0-4.8); MEAN CELL VOLUME 84.3 FL (80.0-100.0); MEAN CORPUSCULAR HEMOGLOBIN 29.1 PG (27.0-34.0); MEAN CORPUSCULAR HGB CONC 34.5 % (32.0-36.0); MONO % 10.6 % (0.0-8.0); NEUT % 81.5 % (16.0-70.0); PLATELET COUNT 305 TH/MM3 (150-450); RED BLOOD COUNT 4.15 MIL/MM3 (4.50-5.90); WHITE BLOOD COUNT 4.3 TH/MM3 (4.0-11.0)
[2017-04-24 08:15] LABS: ALT (GPT) 39 U/L (12-78); ANION GAP 12 MEQ/L (5-15); AST (GOT) 43 U/L (15-37); BICARBONATE 20.6 MEQ/L (21.0-32.0); BLOOD UREA NITROGEN 5 MG/DL (7-18); CHLORIDE 106 MEQ/L (98-107); GLOMERULAR FILTRATION RATE 141 ML/MIN (>89); POTASSIUM 3.5 MEQ/L (3.5-5.1); SODIUM (NA) 139 MEQ/L (136-145)
[2017-04-24 08:17] LABS: ALKALINE PHOSPHATASE 288 U/L (45-117); TOTAL BILIRUBIN ADULT 1.7 MG/DL (0.2-1.0)
[2017-04-24] MEDS: DOCUSATE SODIUM 50 MG/SENNA 8.6 MG TAB PO SCH ×2 (09:00→21:00)
[2017-04-24] MEDS: NIFEdipine 30 MG SUSTAINED RELEASE TAB PO SCH (10:09)
--- NOTE | 2017-04-24 11:33 | PD.ONC.PN ---
Subjective Subjective Remarks Afebrile overnight. Patient resting in bed in nad. No pain at right axilla biopsy site. Objective Data Date Time Temp Pulse Resp B/P Pulse Ox O2 Delivery O2 Flow Rate FiO2 04/24/17 08:00 97.9 84 16 161/84 92 04/24/17 04:00 98.4 57 20 130/88 93 04/24/17 00:00 98.1 69 20 158/95 94 04/23/17 20:00 99 04/23/17 20:00 Room Air 04/23/17 20:00 97.6 88 20 150/94 94 04/23/17 16:00 98.2 87 20 146/82 93 04/23/17 12:00 97.4 82 20 170/92 96 04/24/17 04/24/17 04/24/17 07:00 15:00 23:00 Intake Total 2673 ml Output Total 600 ml Balance 2073 ml Result Diagram: 04/24/17 0731 04/24/1731 Laboratory Results Laboratory Tests Test 04/24/17 07:31 White Blood Count 4.3 TH/MM3 Red Blood Count 4.15 MIL/MM3 Hemoglobin 12.1 GM/DL Hematocrit 35.0 % Mean Corpuscular Volume 84.3 FL Mean Corpuscular Hemoglobin 29.1 PG Mean Corpuscular Hemoglobin 34.5 % Concent Red Cell Distribution Width 16.0 % Platelet Count 305 TH/MM3 Mean Platelet Volume 8.0 FL Neutrophils (%) (Auto) 81.5 % Lymphocytes (%) (Auto) 7.4 % Monocytes (%) (Auto) 10.6 % Eosinophils (%) (Auto) 0.1 % Basophils (%) (Auto) 0.4 % Neutrophils # (Auto) 3.5 TH/MM3 Lymphocytes # (Auto) 0.3 TH/MM3 Monocytes # (Auto) 0.5 TH/MM3 Eosinophils # (Auto) 0.0 TH/MM3 Basophils # (Auto) 0.0 TH/MM3 CBC Comment DIFF FINAL Differential Comment Sodium Level 139 MEQ/L Potassium Level 3.5 MEQ/L Chloride Level 106 MEQ/L Carbon Dioxide Level 20.6 MEQ/L Anion Gap 12 MEQ/L Blood Urea Nitrogen 5 MG/DL Creatinine 0.72 MG/DL Estimat Glomerular Filtration 141 ML/MIN Rate Random Glucose 88 MG/DL Calcium Level 8.6 MG/DL Total Bilirubin 1.7 MG/DL Aspartate Amino Transf 43 U/L (AST/SGOT) Alanine Aminotransferase 39 U/L (ALT/SGPT) Alkaline Phosphatase 288 U/L Total Protein 6.4 GM/DL Albumin 2.4 GM/DL Administered Medications Medications (Trade) Dose Ordered Sig/Shyla Route PRN Reason Start Time Stop Time Status Last Admin Dose Admin Sodium Chloride (NS Flush) 2 ml UNSCH PRN IV FLUSH FLUSH AFTER USING IV ACCESS 04/18/17 17:30 04/21/17 22:27 Ondansetron HCl (Zofran Inj) 4 mg Q6H PRN IVP NAUSEA OR VOMITING 04/18/17 19:30 04/24/17 10:09 Senna/Docusate Sodium 1 tab 1 tab BID PO 04/18/17 21:00 04/19/17 20:24 Ceftriaxone Sodium/Sodium Chloride (Rocephin Inj/NS Inj) 100 ml @ 200 mls/hr Q24H IV 04/19/17 13:00 04/23/17 13:16 Heparin Sodium (Porcine) (Heparin Inj) 5,000 units Q8HR SQ 04/19/17 14:00 Hold 04/20/17 05:37 Azithromycin (Zithromax) 500 mg Q24H PO 04/19/17 13:00 04/23/17 13:15 Nifedipine (Procardia Xl) 30 mg DAILY PO 04/21/17 17:00 04/24/17 10:09 Hydralazine HCl 10 mg 10 mg Q6HR PRN IV PUSH SBP>160, DBP>90 04/21/17 17:00 04/22/17 20:57 Dextrose/Sodium Chloride (D5W-NS 1000 ml Inj) 1,000 ml @ 60 mls/hr [id number] IV 04/23/17 12:45 04/24/17 06:40 Objective Remarks GENERAL: Young man, upright in bed in nad. SKIN: Warm and dry. bandage, left axilla HEAD: Normocephalic. EYES: no injection or drainage. NECK: Supple, trachea midline. CARDIOVASCULAR: Regular rate and rhythm RESPIRATORY: Breath sounds equal bilaterally. No accessory muscle use. GASTROINTESTINAL: Abdomen soft, non-tender, nondistended. EXTREMITIES: No cyanosis NEUROLOGICAL: awake and alert, normal speech. moving all extremities. Assessment/Plan Problem List: (1) Adenopathy Status: Acute Plan: --has palpable bilateral axillary and supraclavicular lymph nodes. --CT of the chest --> extensive mediastinal, cervical and axillary lymph nodes. --CT abdomen and pelvis-->extensive mesenteric and retroperitoneal lymph nodes.also lymph node in the obturator and inguinal area. --is worrisome for lymphoma. --HIV test is pending at this time. --s/p LN biopsy on 04/22, pathology pending. (2) Acute pancreatitis Status: Acute Plan: --treatment per primary team Assessment 47y/o male admitted with pancreatitis, oncology consulted for diffuse adenopathy. Plan 1. await pathology 2. monitor CBC Attending Statement The exam, history, and the medical decision-making described in the above note were completed with the assistance of the mid-level provider. I reviewed and agree with the findings presented. I attest that I had a [id number] encounter with the patient on the same day, and personally performed and documented my assessment and findings in the medical record. Abdominal pain continue to improve. Path pending. If he has lymphoma, will need treatment with chemotherapy and will need port placement. HIV pending. Problem Qualifiers (1) Acute pancreatitis: Qualified Code: K85.20 - Alcohol-induced acute pancreatitis, unspecified complication status Brenda Platt Apr 24, 2017 11:33 Ruslan Connelly MD Apr 24, 2017 14:12
[2017-04-24 12:00] VITALS: BP 163/91; PULSE 83; RESP 16; TEMP 97.5; O2SAT 93
[2017-04-24] MEDS: AZITHROMYCIN 250 MG TAB PO SCH (12:51)
[2017-04-24] MEDS: cefTRIAXone INJ 1,000 MG in SODIUM CHLORIDE 0.9% INJ 100 ML IV SCH (12:51)
--- NOTE | 2017-04-24 14:31 | HHI.PR ---
Subjective Remarks persistent nausea + 1 vomiting previously ingested food this am states + flatus Objective Vitals Vital Signs Date Time Temp Pulse Resp B/P Pulse Ox O2 Delivery O2 Flow Rate FiO2 04/24/17 08:00 97.9 84 16 161/84 92 04/24/17 04:00 98.4 57 20 130/88 93 04/24/17 00:00 98.1 69 20 158/95 94 04/23/17 20:00 99 04/23/17 20:00 Room Air 04/23/17 20:00 97.6 88 20 150/94 94 04/23/17 16:00 98.2 87 20 146/82 93 I/O 04/23/17 04/23/17 04/23/17 04/24/17 04/24/17 04/24/17 06:59 14:59 22:59 06:59 14:59 22:59 Intake Total 660 ml 240 ml 2673 ml Output Total 700 ml 300 ml 600 ml Balance 660 ml -460 ml -300 ml 2073 ml Intake Oral 240 ml 240 ml IV Total 660 ml 2433 ml Output Urine Total 700 ml 300 ml 600 ml # Voids 3 # Bowel Movements 0 1 Result Diagram: 04/24/17 0731 04/24/17 0731 Imaging Last Impressions Gall Bladder Ultrasound 04/22/17 0000 Signed Impressions: Service Date/Time: Saturday, April 22, 2017 07:35 - CONCLUSION: Small liver with focal abdomen only incompletely evaluated. Large right pleural effusion. effusion. Kirk Briceño MD FACR Chest CT 04/20/17 0000 Signed Impressions: Service Date/Time: Thursday, April 20, 2017 19:40 - CONCLUSION: Bilateral pleural effusions much larger on the right than the left extensive mediastinal and axillary adenopathy. The cervical adenopathy or left axillary adenopathy could be biopsied percutaneously. Lymphoma is suspected. Kirk Briceño MD FACR Abdomen CT 04/20/17 0000 Signed Impressions: Service Date/Time: Thursday, April 20, 2017 19:40 - CONCLUSION: Limited exam because of lack of intravenous contrast. Lymphoma is suspected. Pathological diagnosis could be obtained with ultrasound biopsy of the cervical, axillary or inguinal adenopathy. Kirk Briceño MD FACR Chest X-Ray 04/18/17 0000 Signed Impressions: Service Date/Time: Tuesday, April 18, 2017 21:18 - CONCLUSION: 1. Right hilar mass which could indicate adenopathy. 2. Right effusion with abnormal opacity at the right lung base which may indicate infiltrate. Goldy Suarez MD Objective Remarks awake and alet, NAD anicteric multiple supraclavicular lymphadenopathy R > left left axillary post excision biopsy site- no bleeding decrease breath sounds- and decrease vocal fremiti- right base to mid regular rhythm abdomen soft, nontender, no tenderness or guarding extremities no edema neuro exam- non focal Procedures 04/[address] excision biopsy A/P Problem List: (1) Acute pancreatitis ICD Code: K85.90 Status: Acute (2) Transaminitis ICD Code: R74.0 Status: Acute (3) ALDO (acute kidney injury) ICD Code: N17.9 Status: Acute Assessment and Plan 47 y/o male with no medical history presented to the ED with complaints of abdominal pain, nausea and vomiting. Patient states for the last 2 weeks he has not been able to keep anything down and he has been vomiting at least twice a day, with watery stools. Acute pancreatitis, lipase 4916, history of alcohol abuse, patient quit 2 months ago- clinically feeling better- nausea persists -Pain management with IV morphine -continue IVF till po much improved -add Phengan right Hilar mass - right Pleural effusion - encourage increase ambulation and check sats if gets symptomatic- consider thoracentesis if symptomatic multiple supraclavicular lymphadenopathy r/o Lymphoma S/P excision biopsy- left axillary LN- 04/22 -ff pathology- pending - + weight loss. no hemoptysis. heavy smoker, no family history of cancer -Treat for CAP with azithromycin and Rocephin.- doubt infection- DC antibiotics -Oncology ff- - HIV test pending Transaminitis, likely due to nausea/vomiting, dehydration, history of alcohol abuse -AST/ALT downtrending -Continue to follow Acute kidney injury, creatinine 1.37 on admission, unknown baseline suspected due to dehydration. Resolved. -Continue IVF - decrease rate -Continue to monitor Hypokalemia, potassium- corrected - continue IVF with UTI -Rocephin as above -Urine culture negative - DC antibiotics HTN- started on CCB prn Hydralazine DVT prophylaxis: SCDs, heparin. patient -encourage to up and ambulate Problem Qualifiers (1) Acute pancreatitis: Qualified Code: K85.20 - Alcohol-induced acute pancreatitis, unspecified complication status Evan Mccabe MD Apr 24, 2017 14:31
[2017-04-24 16:00] VITALS: BP 151/88; PULSE 88; RESP 16; TEMP 98.1; O2SAT 93
[2017-04-24] MEDS: POTASSIUM CHLORIDE INJ 30 MEQ in DEXT 5%-NACL 0.9% 1000 ML INJ 1,000 ML IV SCH (16:37)
[2017-04-24 20:00] VITALS: BP 159/93; PULSE 74; PULSE 84; RESP 20; TEMP 97.5; O2SAT 93
[2017-04-25] VITALS (7 sets, daily range): BP systolic 135–167; BP diastolic 83–97; PULSE 64–92; RESP 16–20; TEMP 97.7–98.1; O2SAT 90–93
[2017-04-25] MEDS: ONDANSETRON HCL 4 MG/2 ML VIAL IVP PRN (04:08)
[2017-04-25] MEDS: POTASSIUM CHLORIDE INJ 30 MEQ in DEXT 5%-NACL 0.9% 1000 ML INJ 1,000 ML IV SCH ×2 (05:34→15:23)
[2017-04-25] MEDS ORDERED: PROMETHAZINE INJ 25 MG/ML VIAL IM ONE (08:00)
[2017-04-25] MEDS: DOCUSATE SODIUM 50 MG/SENNA 8.6 MG TAB PO SCH ×2 (09:00→21:00)
[2017-04-25] MEDS: NIFEdipine 30 MG SUSTAINED RELEASE TAB PO SCH (09:42)
[2017-04-25 11:53] LABS: HIV RNA COPIES LESS THAN 20.0 (()); HIV RNA LOG COPIES LESS THAN 1.30 (())
[2017-04-25 12:59] LABS: ALT (GPT) 35 U/L (12-78); ANION GAP 11 MEQ/L (5-15); AST (GOT) 39 U/L (15-37); BICARBONATE 22.7 MEQ/L (21.0-32.0); BLOOD UREA NITROGEN 3 MG/DL (7-18); CHLORIDE 105 MEQ/L (98-107); GLOMERULAR FILTRATION RATE 136 ML/MIN (>89); POTASSIUM 3.6 MEQ/L (3.5-5.1); SODIUM (NA) 139 MEQ/L (136-145)
[2017-04-25 13:01] LABS: ALKALINE PHOSPHATASE 256 U/L (45-117); TOTAL BILIRUBIN ADULT 1.6 MG/DL (0.2-1.0)
--- NOTE | 2017-04-25 13:10 | HHI.PR ---
Subjective Remarks slight nausea this am- relieved with Phenergan slight "short of breath" with walking even to BR + flatus d/w him pathology report- + Lymphoma Objective Vitals Vital Signs Date Time Temp Pulse Resp B/P Pulse Ox O2 Delivery O2 Flow Rate FiO2 04/25/17 08:05 Room Air 04/25/17 08:00 97.9 82 20 152/89 93 04/25/17 07:53 84 04/25/17 07:53 84 04/25/17 04:00 98.1 76 20 158/83 92 04/25/17 00:00 97.8 64 20 138/90 93 04/24/17 20:00 97.5 74 20 159/93 93 04/24/17 20:00 Room Air 04/24/17 20:00 84 04/24/17 16:00 98.1 88 16 151/88 93 I/O 04/24/17 04/24/17 04/24/17 04/25/17 04/25/17 04/25/17 07:00 15:00 23:00 07:00 15:00 23:00 Intake Total 2673 ml 60 ml 1037 ml 662 ml Output Total 600 ml 200 ml 300 ml Balance 2073 ml 60 ml 837 ml 362 ml Intake Oral 240 ml 60 ml 120 ml 100 ml IV Total 2433 ml 917 ml 562 ml Output Urine Total 600 ml 200 ml 300 ml Result Diagram: 04/24/17 0731 04/25/17 1151 Imaging Last Impressions Gall Bladder Ultrasound 04/22/17 0000 Signed Impressions: Service Date/Time: Saturday, April 22, 2017 07:35 - CONCLUSION: Small liver with focal abdomen only incompletely evaluated. Large right pleural effusion. effusion. Kirk Briceño MD FACR Chest CT 04/20/17 0000 Signed Impressions: Service Date/Time: Thursday, April 20, 2017 19:40 - CONCLUSION: Bilateral pleural effusions much larger on the right than the left extensive mediastinal and axillary adenopathy. The cervical adenopathy or left axillary adenopathy could be biopsied percutaneously. Lymphoma is suspected. Kirk Briceño MD FACR Abdomen CT 04/20/17 0000 Signed Impressions: Service Date/Time: Thursday, April 20, 2017 19:40 - CONCLUSION: Limited exam because of lack of intravenous contrast. Lymphoma is suspected. Pathological diagnosis could be obtained with ultrasound biopsy of the cervical, axillary or inguinal adenopathy. Kirk Briceño MD FACR Chest X-Ray 04/18/17 0000 Signed Impressions: Service Date/Time: Tuesday, April 18, 2017 21:18 - CONCLUSION: 1. Right hilar mass which could indicate adenopathy. 2. Right effusion with abnormal opacity at the right lung base which may indicate infiltrate. Goldy Suarez MD Objective Remarks awake and alet, NAD anicteric multiple supraclavicular lymphadenopathy R > left left axillary post excision biopsy site- no bleeding decrease breath sounds- and decrease vocal fremiti- right base to mid regular rhythm abdomen soft, nontender, no tenderness or guarding extremities no edema neuro exam- non focal Procedures 04/[address] excision biopsy A/P Problem List: (1) Acute pancreatitis ICD Code: K85.90 Status: Acute (2) Transaminitis ICD Code: R74.0 Status: Acute (3) ALDO (acute kidney injury) ICD Code: N17.9 Status: Acute Assessment and Plan 47 y/o male with no medical history presented to the ED with complaints of abdominal pain, nausea and vomiting. Patient states for the last 2 weeks he has not been able to keep anything down and he has been vomiting at least twice a day, with watery stools. Acute pancreatitis,- lipase trended up again clinically no pain nausea persists -Pain management with IV morphine -continue IVF till po much improved -add Phenergan IM B Cell Lymphoma right Hilar mass - with right Pleural effusion - encourage increase ambulation and check sats if gets symptomatic- consider thoracentesis- slightly short of breath B cell lymphoma - -Oncology ff- - HIV test pending - get CT of chest - if significant effusion- get a therapeutic thoracentesis Transaminitis, likely due to nausea/vomiting, dehydration, history of alcohol abuse -AST/ALT downtrending -Continue to follow Acute kidney injury, creatinine 1.37 on admission, unknown baseline suspected due to dehydration. Resolved. -Continue IVF - decrease rate -Continue to monitor Hypokalemia, potassium- corrected - continue IVF with Pyuria -Urine culture negative - DC antibiotics HTN- started on CCB prn Hydralazine DVT prophylaxis: SCDs, heparin. patient -encourage to up and ambulate Problem Qualifiers (1) Acute pancreatitis: Qualified Code: K85.20 - Alcohol-induced acute pancreatitis, unspecified complication status Evan Mccabe MD Apr 25, 2017 13:10
[2017-04-26] VITALS (8 sets, daily range): BP systolic 151–180; BP diastolic 74–101; PULSE 63–89; RESP 16–20; TEMP 97.2–98.3; O2SAT 91–93
[2017-04-26] MEDS: POTASSIUM CHLORIDE INJ 30 MEQ in DEXT 5%-NACL 0.9% 1000 ML INJ 1,000 ML IV SCH ×2 (05:30→20:59)
[2017-04-26] MEDS: ONDANSETRON HCL 4 MG/2 ML VIAL IVP PRN (06:04)
[2017-04-26] MEDS: DOCUSATE SODIUM 50 MG/SENNA 8.6 MG TAB PO SCH ×2 (08:18→20:56)
[2017-04-26] MEDS: NIFEdipine 30 MG SUSTAINED RELEASE TAB PO SCH (08:18)
--- NOTE | 2017-04-26 10:44 | HHI.PR ---
Subjective Remarks no abdominal pain but persistent nausea + good BM- brown stools appears more comfortable - respiratory duggan Objective Vitals Vital Signs Date Time Temp Pulse Resp B/P Pulse Ox O2 Delivery O2 Flow Rate FiO2 04/26/17 08:07 97.7 81 20 173/84 91 04/26/17 04:00 97.9 63 18 151/74 91 04/26/17 04:00 96 Room Air 04/26/17 00:00 96 Room Air 04/26/17 00:00 98.3 86 16 167/86 91 04/25/17 20:00 97.9 92 16 162/88 91 04/25/17 20:00 96 Room Air 04/25/17 20:00 87 04/25/17 16:00 97.9 81 20 135/97 90 04/25/17 12:00 97.7 75 20 167/96 92 04/25/17 12:00 Room Air I/O 04/25/17 04/25/17 04/25/17 04/26/17 04/26/17 04/26/17 07:00 15:00 23:00 07:00 15:00 23:00 Intake Total 662 ml 606 ml 120 ml 937 ml Output Total 300 ml 600 ml 300 ml 450 ml Balance 362 ml 6 ml -180 ml 487 ml Intake Oral 100 ml 0 ml 120 ml 0 ml IV Total 562 ml 606 ml 937 ml Output Urine Total 300 ml 600 ml 300 ml 450 ml # Bowel Movements 1 0 0 Result Diagram: 04/24/17 0731 04/25/17 1151 Imaging Last Impressions Gall Bladder Ultrasound 04/22/17 0000 Signed Impressions: Service Date/Time: Saturday, April 22, 2017 07:35 - CONCLUSION: Small liver with focal abdomen only incompletely evaluated. Large right pleural effusion. effusion. Kirk Briceño MD FACR Chest CT 04/20/17 0000 Signed Impressions: Service Date/Time: Thursday, April 20, 2017 19:40 - CONCLUSION: Bilateral pleural effusions much larger on the right than the left extensive mediastinal and axillary adenopathy. The cervical adenopathy or left axillary adenopathy could be biopsied percutaneously. Lymphoma is suspected. Kirk Briceño MD FACR Abdomen CT 04/20/17 0000 Signed Impressions: Service Date/Time: Thursday, April 20, 2017 19:40 - CONCLUSION: Limited exam because of lack of intravenous contrast. Lymphoma is suspected. Pathological diagnosis could be obtained with ultrasound biopsy of the cervical, axillary or inguinal adenopathy. Kirk Briceño MD FACR Chest X-Ray 04/18/17 0000 Signed Impressions: Service Date/Time: Thursday, April 18, 2017 21:18 - CONCLUSION: 1. Right hilar mass which could indicate adenopathy. 2. Right effusion with abnormal opacity at the right lung base which may indicate infiltrate. Goldy Suarez MD Objective Remarks awake and alert, NAD anicteric multiple supraclavicular lymphadenopathy R > left left axillary post excision biopsy site- no bleeding decrease breath sounds- -mid to base regular rhythm abdomen soft, nontender, no tenderness or guarding extremities no edema neuro exam- non focal Procedures 04/[address] excision biopsy A/P Problem List: (1) Acute pancreatitis ICD Code: K85.90 Status: Acute (2) Transaminitis ICD Code: R74.0 Status: Acute (3) ALDO (acute kidney injury) ICD Code: N17.9 Status: Acute Assessment and Plan 47 y/o male with no medical history presented to the ED with complaints of abdominal pain, nausea and vomiting. Patient states for the last 2 weeks he has not been able to keep anything down and he has been vomiting at least twice a day, with watery stools. B Cell Lymphoma right Hilar mass - with right Pleural effusion - encourage increase ambulation and check sats if gets symptomatic- consider thoracentesis- slightly short of breath B cell lymphoma - -Oncology ff- - HIV test pending - get CT of chest - if significant effusion- get a therapeutic thoracentesis - on schedule today Acute pancreatitis,- \ - recheck lipase -Pain management with IV morphine -continue IVF -add Phenergan IM Transaminitis, likely due to nausea/vomiting, dehydration, history of alcohol abuse -AST/ALT downtrending -Continue to follow Acute kidney injury, creatinine 1.37 on admission, unknown baseline suspected due to dehydration. Resolved. -Continue IVF - decrease rate -Continue to monitor Hypokalemia, potassium- corrected - continue IVF with Pyuria -Urine culture negative - DC antibiotics HTN- started on CCB prn Hydralazine DVT prophylaxis: SCDs- hold lovenox in the eent of thoracentesis Problem Qualifiers (1) Acute pancreatitis: Qualified Code: K85.20 - Alcohol-induced acute pancreatitis, unspecified complication status Evan Mccabe MD Apr 26, 2017 10:44
[2017-04-26 12:36] LABS: BICARBONATE 23.1 MEQ/L (21.0-32.0); POTASSIUM 3.6 MEQ/L (3.5-5.1)
[2017-04-26 12:38] LABS: INDIRECT BILIRUBIN 0.5 MG/DL (0.0-0.8); TOTAL BILIRUBIN ADULT 1.5 MG/DL (0.2-1.0)
[2017-04-26] MEDS: PROMETHAZINE INJ 25 MG/ML VIAL IM PRN ×2 (13:53→21:36)
--- NOTE | 2017-04-26 19:46 | RADRPT ---
EXAM DATE/TIME: 04/26/2017 19:00 [facility] COMPARISON: CT THORAX W/O CONTRAST, April 20, 2017, 19:40. INDICATIONS : Pleural effusion. RADIATION DOSE: 5.11 CTDIvol (mGy) MEDICAL HISTORY : None SURGICAL HISTORY : None. ENCOUNTER: Initial ACUITY: 1 day PAIN SCALE: 0/10 LOCATION: chest TECHNIQUE: Volumetric scanning of the chest was performed. Using automated exposure control and adjustment of t he mA and/or kV according to patient size, radiation dose was kept as low as reasonably achievable to obtain optimal diagnostic quality images. DICOM format image data is available electronically for r eview and comparison. Follow-up recommendations for incidentally detected pulmonary nodules are based at a minimum on nodul e size and patient risk factors according to Fleischner Society Guidelines. FINDINGS: There is extensive pleural effusion on the right side increased since the prior study. There is compressive collapse of both lower lungs with a large left pleural effusion as well. Extensive bulky adenopathy is seen within the mediastinum the largest area measures 6.4 cm in size with bulky adenopa thy in the lower neck supraclavicular areas in addition to left axilla. There is gas in the left axil la probably postprocedural. No definite pneumothorax is seen for technique. There is also adenopathy underneath the xiphoid with pericardial effusion as well. CONCLUSION: The right pleural effusion is slightly larger on the left side has not changed. Extensive bulky adeno oneyda as before and malignancies such as lymphoma is suspected. Leonor Chavez MD on April 26, 2017 at 19:40 Board Certified Radiologist. This report was verified electronically.
[2017-04-26] MEDS: hydrALAZINE HCL 20 MG/ML VIAL IV PUSH PRN (23:36)
[2017-04-27] VITALS (10 sets, daily range): BP systolic 129–183; BP diastolic 78–97; PULSE 63–106; RESP 17–22; TEMP 96.4–98.1; O2SAT 91–100
[2017-04-27] MEDS: PROMETHAZINE INJ 25 MG/ML VIAL IM PRN ×3 (06:00→22:17)
[2017-04-27] MEDS: DOCUSATE SODIUM 50 MG/SENNA 8.6 MG TAB PO SCH ×2 (09:00→20:08)
[2017-04-27] MEDS ORDERED: VANCOMYCIN INJ 1,000 MG in SODIUM CHLOR 0.9% 250 ML INJ 250 ML IV SCH (10:00)
[2017-04-27] MEDS ORDERED: ceFAZolin 2 GM PREMIX 50 ML IV SCH (10:00)
[2017-04-27] MEDS: NIFEdipine 30 MG SUSTAINED RELEASE TAB PO SCH (10:02)
[2017-04-27] MEDS: ALLOPURINOL 300 MG TAB PO SCH (10:02)
[2017-04-27] MEDS: hydrALAZINE HCL 20 MG/ML VIAL IV PUSH PRN (10:15)
--- NOTE | 2017-04-27 11:04 | PD.ONC.PN ---
Subjective Subjective Remarks Afebrile overnight. Patient resting in bed in [facility]. Discussed pathology results with patient. He would like to take another shower today. Objective Data Date Time Temp Pulse Resp B/P Pulse Ox O2 Delivery O2 Flow Rate FiO2 04/27/17 08:00 98.0 87 18 169/97 100 04/27/17 04:00 98.1 63 19 164/79 93 04/27/17 04:00 Room Air 04/27/17 00:00 98.1 71 17 183/94 92 04/27/17 00:00 Room Air 04/26/17 20:00 97.2 79 19 180/101 93 04/26/17 20:00 Room Air 04/26/17 20:00 89 04/26/17 17:38 92 21 04/26/17 16:07 97.9 80 19 162/92 91 04/26/17 12:07 98.3 79 20 169/90 91 04/26/17 12:00 Room Air 04/27/17 04/27/17 04/27/17 07:00 15:00 23:00 Intake Total 715 ml Output Total 300 ml Balance 415 ml Result Diagram: 04/24/17 0731 04/26/17 1135 Laboratory Results Laboratory Tests Test 04/26/17 11:35 Sodium Level 139 MEQ/L Potassium Level 3.6 MEQ/L Chloride Level 104 MEQ/L Carbon Dioxide Level 23.1 MEQ/L Anion Gap 12 MEQ/L Blood Urea Nitrogen 4 MG/DL Creatinine 0.77 MG/DL Estimat Glomerular Filtration 130 ML/MIN Rate Random Glucose 79 MG/DL Calcium Level 8.5 MG/DL Total Bilirubin 1.5 MG/DL Direct Bilirubin 1.0 MG/DL Indirect Bilirubin 0.5 MG/DL Aspartate Amino Transf 40 U/L (AST/SGOT) Alanine Aminotransferase 34 U/L (ALT/SGPT) Alkaline Phosphatase 244 U/L Total Protein 6.4 GM/DL Albumin 2.4 GM/DL Lipase 976 U/L Administered Medications Medications (Trade) Dose Ordered Sig/Shyla Route PRN Reason Start Time Stop Time Status Last Admin Dose Admin Sodium Chloride (NS Flush) 2 ml UNSCH PRN IV FLUSH FLUSH AFTER USING IV ACCESS 04/18/17 17:30 04/21/17 22:27 Senna/Docusate Sodium (Porsha-Colace) 1 tab BID PO 04/18/17 21:00 04/19/17 20:24 Heparin Sodium (Porcine) (Heparin Inj) 5,000 units Q8HR SQ 04/19/17 14:00 Hold 04/20/17 05:37 Hydralazine HCl (Apresoline Inj) 10 mg Q6HR PRN IV PUSH SBP>160, DBP>90 04/21/17 17:00 04/27/17 10:15 Nifedipine 60 mg 60 mg DAILY PO 04/26/17 09:00 04/27/17 10:02 Potassium Chloride/Dextrose/ Sodium Chloride (KCl Inj/D5W-NS 1000 ml Inj) 1,015 ml @ 60 mls/hr [id number] IV 04/25/17 15:00 04/26/17 20:59 Promethazine HCl (Phenergan Inj) 12.5 mg Q8H PRN IM PERSISTENT NAUSEA 04/26/17 13:15 04/27/17 06:00 Allopurinol (Zyloprim) 300 mg DAILY PO 04/27/17 09:00 04/27/17 10:02 Objective Remarks GENERAL: Young man, supine in bed in nad. SKIN: Warm and dry. bandage, left axilla HEAD: Normocephalic. EYES: no injection or drainage. NECK: Supple, trachea midline. CARDIOVASCULAR: Regular rate and rhythm RESPIRATORY: Breath sounds equal bilaterally. No accessory muscle use. GASTROINTESTINAL: Abdomen soft, non-tender, nondistended. EXTREMITIES: No cyanosis NEUROLOGICAL: awake and alert, normal speech. moving all extremities. Assessment/Plan Problem List: (1) Acute pancreatitis Status: Acute Plan: --treatment per primary team (2) Non-Hodgkin lymphoma Status: Acute Plan: --follicular with features of transformation to B-cell lymphoma --definitely double hit, sent out to see if triple hit --transfer to 7e, plan t o start chemo in next 48-72 hours (INPATIENT) Assessment 47y/o male admitted with pancreatitis, oncology consulted for diffuse adenopathy. Plan 1. monitor CBC, LDH, uric acid 2. start allopurinol 3. transfer to 4. will start chemo in next 48-72 hours, once further pathology returned 5. place port 6. bone marrow biopsy in IR Attending Statement The exam, history, and the medical decision-making described in the above note were completed with the assistance of the mid-level provider. I reviewed and agree with the findings presented. I attest that I had a [id number] encounter with the patient on the same day, and personally performed and documented my assessment and findings in the medical record. Abdominal pain continue to improve. 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 Triple HIT panel pending. HIV negative. Extensive discussion with pt regarding diagnosis, prognosis and treatment options. He has an aggressive lymphoma and will need to treat him GARRETT. Will place port and complete staging with bone marrow biopsy. Start him on Allopurinol. Problem Qualifiers (1) Acute pancreatitis: Qualified Code: K85.20 - Alcohol-induced acute pancreatitis, unspecified complication status (2) Non-Hodgkin lymphoma: Brenda Platt Apr 27, 2017 11:04 Ruslan Connelly MD Apr 27, 2017 14:28
[2017-04-27 11:12] LABS: AUTOMATED NEUTROPHIL # 3.6 TH/MM3 (1.8-7.7); EOSINOPHIL % 0.1 % (0.0-4.0); HEMATOCRIT 37.6 % (39.0-51.0); HEMO FLAGS DIFF FINAL; LYMPH % 8.9 % (9.0-44.0); LYMPHOCYTE # 0.4 TH/MM3 (1.0-4.8); MEAN CELL VOLUME 84.5 FL (80.0-100.0); MEAN CORPUSCULAR HEMOGLOBIN 29.3 PG (27.0-34.0); MEAN CORPUSCULAR HGB CONC 34.7 % (32.0-36.0); MONO % 10.6 % (0.0-8.0); NEUT % 79.4 % (16.0-70.0); PLATELET COUNT 346 TH/MM3 (150-450); RED BLOOD COUNT 4.44 MIL/MM3 (4.50-5.90); RED CELL DISTRIBUTION WIDTH 16.5 % (11.6-17.2); WHITE BLOOD COUNT 4.6 TH/MM3 (4.0-11.0)
[2017-04-27 11:24] LABS: BICARBONATE 20.1 MEQ/L (21.0-32.0); POTASSIUM 3.6 MEQ/L (3.5-5.1)
--- NOTE | 2017-04-27 14:44 | HHI.PR ---
Subjective Remarks patient went for port placement- tolerated well had a good night "ready to eat" Objective Vitals Vital Signs Date Time Temp Pulse Resp B/P Pulse Ox O2 Delivery O2 Flow Rate FiO2 04/27/17 12:00 98.0 90 18 170/87 93 04/27/17 10:10 89 04/27/17 08:00 98.0 87 18 169/97 100 04/27/17 04:00 98.1 63 19 164/79 93 04/27/17 04:00 Room Air 04/27/17 00:00 98.1 71 17 183/94 92 04/27/17 00:00 Room Air 04/26/17 20:00 97.2 79 19 180/101 93 04/26/17 20:00 Room Air 04/26/17 20:00 89 04/26/17 17:38 92 21 04/26/17 16:07 97.9 80 19 162/92 91 I/O 04/26/17 04/26/17 04/26/17 04/27/17 04/27/17 04/27/17 07:00 15:00 23:00 07:00 15:00 23:00 Intake Total 937 ml 380 ml 715 ml Output Total 450 ml 1200 ml 200 ml 300 ml Balance 487 ml -820 ml -200 ml 415 ml Intake Oral 0 ml 380 ml IV Total 937 ml 715 ml Output Urine Total 450 ml 1200 ml 200 ml 300 ml # Voids 2 # Bowel Movements 0 0 1 0 Result Diagram: 04/27/17 1103 04/27/17 0705 Imaging Last Impressions Chest CT 04/25/17 0000 Signed Impressions: Service Date/Time: Wednesday, April 26, 2017 19:00 - CONCLUSION: The right pleural effusion is slightly larger on the left side has not changed. Extensive bulky adenopathy as before and malignancies such as lymphoma is suspected. K. Anson Chavez MD Gall Bladder Ultrasound 04/22/17 0000 Signed Impressions: Service Date/Time: Saturday, April 22, 2017 07:35 - CONCLUSION: Small liver with focal abdomen only incompletely evaluated. Large right pleural effusion. effusion. Kirk Briceño MD FACR Abdomen CT 04/20/17 0000 Signed Impressions: Service Date/Time: Thursday, April 20, 2017 19:40 - CONCLUSION: Limited exam because of lack of intravenous contrast. Lymphoma is suspected. Pathological diagnosis could be obtained with ultrasound biopsy of the cervical, axillary or inguinal adenopathy. Kirk Briceño MD FACR Chest X-Ray 04/18/17 0000 Signed Impressions: Service Date/Time: Thursday, April 18, 2017 21:18 - CONCLUSION: 1. Right hilar mass which could indicate adenopathy. 2. Right effusion with abnormal opacity at the right lung base which may indicate infiltrate. Goldy Suarez MD Objective Remarks awake and alert, NAD anicteric multiple supraclavicular lymphadenopathy R > left left axillary post excision biopsy site- no bleeding decrease breath sounds- -mid to base regular rhythm abdomen soft, nontender, no tenderness or guarding extremities no edema neuro exam- non focal Procedures 04/[address] excision biopsy 04/27- port placement A/P Problem List: (1) Acute pancreatitis ICD Code: K85.90 Status: Acute (2) Transaminitis ICD Code: R74.0 Status: Acute (3) ALDO (acute kidney injury) ICD Code: N17.9 Status: Acute Assessment and Plan 47 y/o male with no medical history presented to the ED with complaints of abdominal pain, nausea and vomiting. Patient states for the last 2 weeks he has not been able to keep anything down and he has been vomiting at least twice a day, with watery stools. B Cell Lymphoma right Hilar mass - with right Pleural effusion - encourage increase ambulation and check sats if gets symptomatic- consider thoracentesis- if become symptomatic -Oncology ff- - HIV test pending -for permcath placement - chemotherapy planned Acute pancreatitis,-clinically improving ff lipase -Pain management with IV morphine -continue IVF - start diet- -Phenergan IM prn Transaminitis,, history of alcohol abuse -AST/ALT downtrending -Continue to follow Acute kidney injury, creatinine 1.37 on admission, unknown baseline suspected due to dehydration. Resolved. Hypokalemia, potassium- corrected - continue IVF with Pyuria -Urine culture negative - DC antibiotics HTN- started on CCB- Increase to Procardia 90 mg XL clonidine 0.1 mg po q 6 prn prn Hydralazine DVT prophylaxis: SCDs- hole Lovenox- procedures being done Problem Qualifiers (1) Acute pancreatitis: Qualified Code: K85.20 - Alcohol-induced acute pancreatitis, unspecified complication status Evan Mccabe MD Apr 27, 2017 14:44 Evan Mccabe MD Apr 27, 2017 14:44
[2017-04-27] MEDS ORDERED: LIDOCAINE 1%/EPINEPHrine 1:100,000 SOLN 20 ML VIAL ONE (14:51)
[2017-04-27] MEDS ORDERED: MIDAZOLAM HCL 5 MG/5 ML VIAL ONE (14:52)
[2017-04-27] MEDS ORDERED: fentaNYL CITRATE 250 MCG/5 ML AMP ONE (14:53)
--- NOTE | 2017-04-27 15:39 | RADRPT ---
EXAM DATE/TIME: 04/27/2017 14:56 [facility] COMPARISON: No previous studies available for comparison. INDICATIONS : Patient with a history of lymphoma. MEDICAL HISTORY : Acute pancreatitis Transaminitis Acute kidney injury B cell lymphoma Hypokalemia HTN SURGICAL HISTORY : None ENCOUNTER: Initial ACUITY: 4-6 days PAIN SCORE: 6/10 LOCATION: Low back FLUORO TIME: 0.3 minutes IMAGE SERIES: 0 SEDATION TIME: 30 minutes ACCESS: Right internal jugular vein SEDATION: 1.) 2 mg midazolam (Versed) IV 2.) 100 mcg fentanyl (Sublimaze) IV Prophylactic antibiotics were administered with appropriate pre-procedure timing. Vancomycin within 2 hours of procedure, Ancef (or alternative) within 1 hour of procedure. DEVICE: 1. 8 Maltese single lumen [id number] PROCEDURE : 1. Continuous pulse oximetry and EKG monitoring. 2. Intravenous conscious sedation. 3. Ultrasound guidance for venous access. 4. Fluoroscopic guided implantable central venous port placement. The patient was placed supine. The neck was prepped in sterile fashion. Full sterile technique was u sed, including cap, mask, sterile gloves and gown, and a large sterile sheet. Hand hygiene and 2% ch lorhexidine Betadine was utilized per protocol for cutaneous antisepsis with appropriate dry time for site. The skin and subcutaneous tissues were infiltrated with local anesthetic solution. Under direct ultrasound guidance, central venous access was accomplished in the targeted vessel. The ultrasound images depicting access guidance were stored and saved to PACS for permanent record. A s ubcutaneous pocket was created using blunt dissection. The port was introduced to the pocket. The c atheter tubing was fed through a subcutaneous tunnel to the venotomy site. The catheter tubing was c ut to a suitable length and then was introduced through a valved Peel-Away sheath and positioned with catheter tubing tip at the cavo-atrial junction level. The pocket incision was closed with subcutic ular Vicryl suture. Steri-Strips were applied. The port was flushed and locked with heparin solutio n per protocol. Sterile dressing was applied to the site. The patient tolerated the procedure well. Conscious sedation was performed with the prescribed dosages and duration as above in the presence of an independent trained radiology nurse to assist in the monitoring of the patient. EKG and oximetry remained stable throughout the procedure. The patient tolerated the procedure well and there were no complications. The patient was sent to post anesthesia recovery in stable condition. CONCLUSION: 1. Bulky bilateral lower cervical lymphadenopathy. 2. Uncomplicated ultrasound and fluoroscopic guided implanted central venous port catheter placement as described in detail above. An 8 Maltese Power port was placed. Liang Peralta MD on April 27, 2017 at 15:37 Board Certified Radiologist. This report was verified electronically.
--- NOTE | 2017-04-27 16:59 | PD.RAD ---
Post CT Procedure Prog Note Pre Procedure Diagnosis: (1) Non-Hodgkin lymphoma Post Procedure Diagnosis: (1) Non-Hodgkin lymphoma Procedure Date: Apr 27, 2017 Supervising Radiologist: Tray Patel Estimated blood loss: None Anesthesia: Local, Conscious Sedation Plan of Activity Patient to Unit: ROPU Patient Condition: Good Additional Comments: Ct guided bone marrow biopsy completed See PACS Report for procedural detail/treatment Tray Patel MD Apr 27, 2017 16:59
--- NOTE | 2017-04-27 17:05 | RADRPT ---
EXAM DATE/TIME: 04/27/2017 16:22 [facility] COMPARISON: No previous studies available for comparison. INDICATIONS : Evaluate for lymphoma; weight loss. BIOPSY SITE: Right iliac DEVICE(S): 1.) 11 gauge Bone marrow biopsy needle MEDICAL HISTORY : weight loss SURGICAL HISTORY : port ENCOUNTER: Initial ACUITY: 1 day PAIN SCORE: 0/10 LOCATION: Right iliac A total of one core specimen(s) were obtained and sent to the laboratory for pathologic evaluation. PROCEDURE: 1. CT guided bone marrow biopsy. Prior to the procedure informed consent was obtained. Any appropriate prior imaging studies were rev iewed. Using automated exposure control and adjustment of the mA and/or kV according to patient size , radiation dose was kept as low as reasonably achievable to obtain optimal diagnostic quality images . DICOM format image data is available electronically for review and comparison. The site was prepped in a sterile fashion. Full sterile technique was used, including cap, mask, remberto rile gloves and gown and a large sterile sheet. Hand hygiene and 2% chlorhexidine and/or betadine/al cohol prep was utilized per protocol for cutaneous antisepsis. The skin and subcutaneous tissues wer e infiltrated with local anesthetic solution. With CT guidance the previously identified target was localized. Biopsy was performed using the presc ribed needle as above. Following biopsy marrow aspiration was performed with repeat puncture. Adequa te hemostasis was obtained with compression at the puncture site. Follow-up CT scan reveals no hemorrhage. Conscious sedation was performed with the prescribed dosages and duration as above in the presence of an independent trained radiology nurse to assist in the monitoring of the patient. EKG and oximetry remained stable throughout the procedure. The patient tolerated the procedure well and there were no complications. The patient was sent to Radiology Outpatient Unit in stable condition. CONCLUSION: 1. Uncomplicated CT guided bone marrow aspirate. 2. Uncomplicated CT guided bone marrow biopsy. Tray Patel MD on April 27, 2017 at 17:03 Board Certified Radiologist. This report was verified electronically.
[2017-04-27 17:33] LABS: BONE MARROW PROCESSING COMPLETE; IRON STAIN DONE; JENNER GIEMSA STAIN DONE
[2017-04-27] MEDS: POTASSIUM CHLORIDE INJ 30 MEQ in DEXT 5%-NACL 0.9% 1000 ML INJ 1,000 ML IV SCH (18:18)
[2017-04-27] MEDS ORDERED: cloNIDine HCL 0.1 MG TAB PO SCH (21:00)
[2017-04-28] VITALS (11 sets, daily range): BP systolic 136–176; BP diastolic 70–93; PULSE 52–104; RESP 16–22; TEMP 96.7–97.6; O2SAT 93–96
[2017-04-28] MEDS: PROMETHAZINE INJ 25 MG/ML VIAL IM PRN ×2 (06:29→16:27)
[2017-04-28 06:31] LABS: AUTOMATED NEUTROPHIL # 3.4 TH/MM3 (1.8-7.7); BASOPHIL % 0.8 % (0.0-2.0); EOSINOPHIL % 0.1 % (0.0-4.0); HEMATOCRIT 34.6 % (39.0-51.0); HEMO FLAGS DIFF FINAL; LYMPH % 9.7 % (9.0-44.0); LYMPHOCYTE # 0.4 TH/MM3 (1.0-4.8); MEAN CELL VOLUME 85.4 FL (80.0-100.0); MEAN CORPUSCULAR HEMOGLOBIN 28.6 PG (27.0-34.0); MEAN CORPUSCULAR HGB CONC 33.5 % (32.0-36.0); MONO % 11.3 % (0.0-8.0); NEUT % 78.1 % (16.0-70.0); PLATELET COUNT 333 TH/MM3 (150-450); RED BLOOD COUNT 4.05 MIL/MM3 (4.50-5.90); RED CELL DISTRIBUTION WIDTH 16.8 % (11.6-17.2); WHITE BLOOD COUNT 4.4 TH/MM3 (4.0-11.0)
[2017-04-28 07:02] LABS: BICARBONATE 23.1 MEQ/L (21.0-32.0); POTASSIUM 3.6 MEQ/L (3.5-5.1); URIC ACID 3.6 MG/DL (2.6-7.2)
[2017-04-28] MEDS: cloNIDine HCL 0.1 MG TAB PO PRN ×2 (08:13→23:51)
[2017-04-28] MEDS: NIFEdipine 90 MG SUSTAINED RELEASE TAB PO SCH (08:13)
[2017-04-28] MEDS: DOCUSATE SODIUM 50 MG/SENNA 8.6 MG TAB PO SCH ×2 (08:17→21:00)
[2017-04-28] MEDS: ALLOPURINOL 300 MG TAB PO SCH (08:19)
--- NOTE | 2017-04-28 11:47 | HHI.PR ---
Subjective Remarks Patient reports is feeling okay today. He is able to drink fluids, no appetite. He denies any pain. Objective Vitals Vital Signs Date Time Temp Pulse Resp B/P Pulse Ox O2 Delivery O2 Flow Rate FiO2 04/28/17 08:24 163/92 04/28/17 08:00 96.9 52 16 176/84 94 Manual Cuff/Auscultation 04/28/17 04:32 97.2 81 18 158/93 95 04/28/17 04:00 95 04/28/17 00:55 95 Nasal Cannula 4.00 04/28/17 00:00 96.7 89 18 136/70 95 04/28/17 00:00 97 04/27/17 20:00 96.4 98 18 142/78 91 04/27/17 20:00 103 04/27/17 17:30 106 22 129/80 92 04/27/17 17:15 105 22 137/81 92 04/27/17 17:00 103 22 144/82 92 04/27/17 17:00 92 Nasal Cannula 4.00 04/27/17 12:00 98.0 90 18 170/87 93 I/O 04/27/17 04/27/17 04/27/17 04/28/17 04/28/17 04/28/17 06:59 14:59 22:59 06:59 14:59 22:59 Intake Total 715 ml 420 ml 240 ml 240 ml Output Total 300 ml 1100 ml 300 ml Balance 415 ml -680 ml 240 ml -60 ml Intake Oral 240 ml 240 ml IV Total 715 ml 420 ml Output Urine Total 300 ml 1100 ml 300 ml # Bowel Movements 0 0 Result Diagram: 04/28/17 0604 04/28/17 0604 Imaging Last Impressions Port Line Insertion 04/27/17 0000 Signed Impressions: Service Date/Time: Thursday, April 27, 2017 14:56 - CONCLUSION: 1. Bulky bilateral lower cervical lymphadenopathy. 2. Uncomplicated ultrasound and fluoroscopic guided implanted central venous port catheter placement as described in detail above. An 8 [place] Power port was placed. Liang Peralta MD Bone Biopsy CT 04/27/17 0000 Signed Impressions: Service Date/Time: Thursday, April 27, 2017 16:22 - CONCLUSION: 1. Uncomplicated CT guided bone marrow aspirate. 2. Uncomplicated CT guided bone marrow biopsy. Tray Ptael MD Chest CT 04/25/17 0000 Signed Impressions: Service Date/Time: Wednesday, April 26, 2017 19:00 - CONCLUSION: The right pleural effusion is slightly larger on the left side has not changed. Extensive bulky adenopathy as before and malignancies such as lymphoma is suspected. Leonor Chavez MD Gall Bladder Ultrasound 04/22/17 0000 Signed Impressions: Service Date/Time: Saturday, April 22, 2017 07:35 - CONCLUSION: Small liver with focal abdomen only incompletely evaluated. Large right pleural effusion. effusion. Kirk Briceño MD FACR Abdomen CT 04/20/17 0000 Signed Impressions: Service Date/Time: Thursday, April 20, 2017 19:40 - CONCLUSION: Limited exam because of lack of intravenous contrast. Lymphoma is suspected. Pathological diagnosis could be obtained with ultrasound biopsy of the cervical, axillary or inguinal adenopathy. Kirk Briceño MD FACR Chest X-Ray 04/18/17 0000 Signed Impressions: Service Date/Time: Tuesday, April 18, 2017 21:18 - CONCLUSION: 1. Right hilar mass which could indicate adenopathy. 2. Right effusion with abnormal opacity at the right lung base which may indicate infiltrate. Goldy Suarez MD Objective Remarks GENERAL: This is a well-nourished, well-developed patient, in no apparent distress. CARDIOVASCULAR: Normal rate and regular rhythm without murmurs, gallops, or rubs. RESPIRATORY: Good respiratory efforts. Breath sounds equal and clear to auscultation bilaterally. GASTROINTESTINAL: Abdomen soft, non-tender, non-distended. Normal active bowel sounds MUSCULOSKELETAL: Extremities without cyanosis, or edema. NEURO: Alert & Oriented x4 to person, place, time, situation. Moves all ext x4 PSYCH: Appropriate mood and affect. Procedures 04/[address] excision biopsy 04/27- port placement A/P Problem List: (1) Acute pancreatitis ICD Code: K85.90 Status: Acute (2) Transaminitis ICD Code: R74.0 Status: Acute (3) ALDO (acute kidney injury) ICD Code: N17.9 Status: Acute Assessment and Plan 47 y/o male with no medical history presented to the ED with complaints of abdominal pain, nausea and vomiting. Patient states for the last 2 weeks he has not been able to keep anything down and he has been vomiting at least twice a day, with watery stools. B Cell Lymphoma right Hilar mass - with right Pleural effusion - encourage increase ambulation and check sats if gets symptomatic- consider thoracentesis- if become symptomatic -Oncology ff- - HIV test pending - Status post port placement for chemotherapy. - chemotherapy planned per oncology. Acute pancreatitis,-clinically improving -Pain management with IV morphine -continue IVF -Advance diet as tolerated. -Phenergan IM prn Transaminitis,, history of alcohol abuse -AST/ALT downtrending -Continue to follow Acute kidney injury, creatinine 1.37 on admission, resolved with IV fluid. HTN- started on CCB- Procardia 90 mg XL clonidine 0.1 mg po q 6 prn prn Hydralazine DVT prophylaxis: SCDs- Plan to resume Lovenox tonight. Problem Qualifiers (1) Acute pancreatitis: Qualified Code: K85.20 - Alcohol-induced acute pancreatitis, unspecified complication status Stevie Sheppard MD Apr 28, 2017 11:46 (1) Acute pancreatitis: Qualified Code: K85.20 - Alcohol-induced acute pancreatitis, unspecified complication status Stevie Sheppard MD Apr 28, 2017 11:46
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
--- NOTE | 2017-04-28 16:28 | HHI.HCPN ---
Palliative care consulted to assist in clarification of goals of care and designation of healthcare surrogate. Reviewed patient's medical records and prior hospital visits. No contact information/family members listed. Called telephone number provided by patient on prior ED visit . Spoke with patient's [id number] Fran Tadeo and obtained the following info: * As per [id number], patient is single. He only knows of 1 son: Jovani Werner Jr. As per oncology note, patient has 5 sons and 3 daughters. * Camryn Seals -patient's mother * Jovani Werner Jr. -patient's son. He is 27 years old. Pending telephone number. * Onel Werner -patient's brother *this is best contact number to reach patient's mother Daisha Seals * Jose Lucero -patient's brother * Charles Werner -patient's brother * Fran Taedo -patient's [id number] Palliative care consultation to follow. JITENDRA Urias. [phone]. (Demetrice Brody) Chart reviewed. 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 Above JITENDRA note reviewed and I concur. . . (Brady Mcghee MD) Demetrice Brody Apr 28, 2017 16:28 Brady Mcghee MD Jul 18, 2017 16:08
[2017-04-28] MEDS: HEPARIN SODIUM - SQ 10,000 UNITS/ML VIAL SQ SCH (21:05)
[2017-04-29] VITALS (9 sets, daily range): BP systolic 128–167; BP diastolic 75–102; PULSE 76–96; RESP 20–26; TEMP 96.4–98.5; O2SAT 91–98
[2017-04-29] MEDS: PROMETHAZINE INJ 25 MG/ML VIAL IM PRN ×3 (01:30→19:05)
[2017-04-29] MEDS: HEPARIN SODIUM - SQ 10,000 UNITS/ML VIAL SQ SCH ×3 (05:45→21:53)
[2017-04-29 07:42] LABS: AUTOMATED NEUTROPHIL # 3.2 TH/MM3 (1.8-7.7); BASOPHIL % 0.7 % (0.0-2.0); EOSINOPHIL % 0.1 % (0.0-4.0); HEMATOCRIT 33.3 % (39.0-51.0); HEMO FLAGS DIFF FINAL; LYMPHOCYTE # 0.4 TH/MM3 (1.0-4.8); MEAN CELL VOLUME 85.8 FL (80.0-100.0); MEAN CORPUSCULAR HEMOGLOBIN 28.8 PG (27.0-34.0); MEAN CORPUSCULAR HGB CONC 33.6 % (32.0-36.0); MONO % 12.3 % (0.0-8.0); NEUT % 76.9 % (16.0-70.0); PLATELET COUNT 270 TH/MM3 (150-450); RED BLOOD COUNT 3.89 MIL/MM3 (4.50-5.90); RED CELL DISTRIBUTION WIDTH 16.5 % (11.6-17.2); WHITE BLOOD COUNT 4.2 TH/MM3 (4.0-11.0)
[2017-04-29] MEDS: DOCUSATE SODIUM 50 MG/SENNA 8.6 MG TAB PO SCH ×2 (08:00→21:55)
[2017-04-29] MEDS: NIFEdipine 90 MG SUSTAINED RELEASE TAB PO SCH (08:00)
[2017-04-29] MEDS: ALLOPURINOL 300 MG TAB PO SCH (08:00)
[2017-04-29 08:02] LABS: BICARBONATE 23.9 MEQ/L (21.0-32.0); POTASSIUM 4.2 MEQ/L (3.5-5.1); URIC ACID 3.3 MG/DL (2.6-7.2)
[2017-04-29 08:05] LABS: INDIRECT BILIRUBIN 0.5 MG/DL (0.0-0.8); TOTAL BILIRUBIN ADULT 1.4 MG/DL (0.2-1.0)
[2017-04-29] MEDS: cloNIDine HCL 0.1 MG TAB PO PRN (08:07)
--- NOTE | 2017-04-29 09:53 | HHI.PR ---
Subjective Remarks Reports feeling ok. Tolerating Liquid ok, no appetite, nausea and vomiting with solid foods. Objective Vitals Vital Signs Date Time Temp Pulse Resp B/P Pulse Ox O2 Delivery O2 Flow Rate FiO2 04/29/17 08:09 96 Nasal Cannula 4.00 04/29/17 08:04 98.5 77 20 161/102 97 04/29/17 04:00 79 04/29/17 04:00 97.3 76 20 165/98 98 04/29/17 00:00 90 04/29/17 00:00 96.8 96 20 167/93 94 04/28/17 21:03 Nasal Cannula 4.00 04/28/17 20:00 89 04/28/17 20:00 97.5 87 22 139/77 93 04/28/17 18:48 Nasal Cannula 4.00 04/28/17 16:00 88 04/28/17 16:00 97.6 84 16 152/92 93 04/28/17 13:23 90 04/28/17 12:00 97.2 89 16 149/93 96 I/O 04/28/17 04/28/17 04/28/17 04/29/17 04/29/17 04/29/17 07:00 15:00 23:00 07:00 15:00 23:00 Intake Total 240 ml 1200 ml 240 ml 240 ml Output Total 300 ml 375 ml 200 ml Balance -60 ml 1200 ml -135 ml 40 ml Intake Oral 240 ml 720 ml 240 ml 240 ml IV Total 480 ml Output Urine Total 300 ml 375 ml 200 ml # Voids 2 # Bowel Movements 0 Result Diagram: 04/29/17 0716 04/29/17 0716 Objective Remarks GENERAL: This is a well-nourished, well-developed patient, in no apparent distress. CARDIOVASCULAR: Normal rate and regular rhythm without murmurs, gallops, or rubs. RESPIRATORY: Good respiratory efforts. Breath sounds diminished at the bases bilaterally. GASTROINTESTINAL: Abdomen soft, non-tender, non-distended. Normal active bowel sounds MUSCULOSKELETAL: Extremities without cyanosis, or edema. NEURO: Alert & Oriented x4 to person, place, time, situation. Moves all ext x4 PSYCH: Appropriate mood and affect. Procedures 04/[address] excision biopsy 04/27- port placement A/P Problem List: (1) Acute pancreatitis ICD Code: K85.90 Status: Resolved (2) Transaminitis ICD Code: R74.0 Status: Acute (3) ALDO (acute kidney injury) ICD Code: N17.9 Status: Acute Assessment and Plan 47 y/o male with no medical history presented to the ED with complaints of abdominal pain, nausea and vomiting. Patient states for the last 2 weeks he has not been able to keep anything down and he has been vomiting at least twice a day, with watery stools. B Cell Lymphoma right Hilar mass - with right Pleural effusion - encourage increase ambulation and check sats if gets symptomatic- consider thoracentesis- if become symptomatic -Oncology ff- - HIV test pending - Status post port placement for chemotherapy. - chemotherapy planned per oncology. Acute pancreatitis,-clinically improving -Pain management with IV morphine -continue IVF -Advance diet as tolerated. -Phenergan IM prn - Dietitian consult, recheck lipase in a.m. Transaminitis,, history of alcohol abuse -AST/ALT downtrending -Continue to follow Acute kidney injury, creatinine 1.37 on admission, resolved with IV fluid. HTN- started on CCB- Procardia 90 mg XL clonidine 0.1 mg po q 6 prn prn Hydralazine DVT prophylaxis: SCDs-heparin. Problem Qualifiers (1) Acute pancreatitis: Qualified Code: K85.20 - Alcohol-induced acute pancreatitis, unspecified complication status Stevie Sheppard MD Apr 29, 2017 09:53
--- NOTE | 2017-04-29 11:06 | PD.ONC.PN ---
Subjective Subjective Remarks No abdominal pain. No CP/SOB. Awaiting ECHO. Objective Data Date Time Temp Pulse Resp B/P Pulse Ox O2 Delivery O2 Flow Rate FiO2 04/29/17 10:34 97 Nasal Cannula 4.00 04/29/17 08:09 96 Nasal Cannula 4.00 04/29/17 08:04 98.5 77 20 161/102 97 04/29/17 04:00 79 04/29/17 04:00 97.3 76 20 165/98 98 04/29/17 00:00 90 04/29/17 00:00 96.8 96 20 167/93 94 04/28/17 21:03 Nasal Cannula 4.00 04/28/17 20:00 89 04/28/17 20:00 97.5 87 22 139/77 93 04/28/17 18:48 93 Nasal Cannula 4.00 04/28/17 18:48 Nasal Cannula 4.00 04/28/17 16:00 88 04/28/17 16:00 97.6 84 16 152/92 93 04/28/17 13:23 90 04/28/17 12:00 97.2 89 16 149/93 96 Result Diagram: 04/29/17 0716 04/29/17 0716 Laboratory Results Laboratory Tests Test 04/28/17 04/29/17 11:04 07:16 Hepatitis A IgM Antibody NEGATIVE Hepatitis B Surface Antigen NEGATIVE Hepatitis B Core IgM Antibody NEGATIVE Hepatitis C Antibody NEGATIVE White Blood Count 4.2 TH/MM3 Red Blood Count 3.89 MIL/MM3 Hemoglobin 11.2 GM/DL Hematocrit 33.3 % Mean Corpuscular Volume 85.8 FL Mean Corpuscular Hemoglobin 28.8 PG Mean Corpuscular Hemoglobin 33.6 % Concent Red Cell Distribution Width 16.5 % Platelet Count 270 TH/MM3 Mean Platelet Volume 6.9 FL Neutrophils (%) (Auto) 76.9 % Lymphocytes (%) (Auto) 10.0 % Monocytes (%) (Auto) 12.3 % Eosinophils (%) (Auto) 0.1 % Basophils (%) (Auto) 0.7 % Neutrophils # (Auto) 3.2 TH/MM3 Lymphocytes # (Auto) 0.4 TH/MM3 Monocytes # (Auto) 0.5 TH/MM3 Eosinophils # (Auto) 0.0 TH/MM3 Basophils # (Auto) 0.0 TH/MM3 CBC Comment DIFF FINAL Differential Comment Sodium Level 140 MEQ/L Potassium Level 4.2 MEQ/L Chloride Level 104 MEQ/L Carbon Dioxide Level 23.9 MEQ/L Anion Gap 12 MEQ/L Blood Urea Nitrogen 8 MG/DL Creatinine 0.84 MG/DL Estimat Glomerular Filtration 118 ML/MIN Rate Random Glucose 67 MG/DL Uric Acid 3.3 MG/DL Calcium Level 8.9 MG/DL Total Bilirubin 1.4 MG/DL Direct Bilirubin 0.9 MG/DL Indirect Bilirubin 0.5 MG/DL Aspartate Amino Transf 38 U/L (AST/SGOT) Alanine Aminotransferase 24 U/L (ALT/SGPT) Alkaline Phosphatase 200 U/L Lactate Dehydrogenase 657 U/L Total Protein 6.4 GM/DL Albumin 2.4 GM/DL Administered Medications Medications (Trade) Dose Ordered Sig/Shyla Route PRN Reason Start Time Stop Time Status Last Admin Dose Admin Sodium Chloride (NS Flush) 2 ml UNSCH PRN IV FLUSH FLUSH AFTER USING IV ACCESS 04/18/17 17:30 04/21/17 22:27 Senna/Docusate Sodium (Porsha-Colace) 1 tab BID PO 04/18/17 21:00 04/19/17 20:24 Heparin Sodium (Porcine) (Heparin Inj) 5,000 units Q8HR SQ 04/19/17 14:00 04/29/17 05:45 Hydralazine HCl (Apresoline Inj) 10 mg Q6HR PRN IV PUSH SBP>160, DBP>90 04/21/17 17:00 04/27/17 10:15 Promethazine HCl (Phenergan Inj) 12.5 mg Q8H PRN IM PERSISTENT NAUSEA 04/26/17 13:15 04/29/17 10:29 Allopurinol (Zyloprim) 300 mg DAILY PO 04/27/17 09:00 04/29/17 08:00 Nifedipine (Procardia Xl) 90 mg DAILY PO 04/28/17 09:00 04/29/17 08:00 Clonidine (Catapres) 0.1 mg Q6H PRN PO SBP>160, DBP>90 04/27/17 15:00 04/29/17 08:07 Objective Remarks GENERAL: Well-nourished, well-developed patient. SKIN: Warm and dry. HEAD: Normocephalic. EYES: No scleral icterus. No injection or drainage. NECK: Supple, trachea midline. No JVD or lymphadenopathy. LYMPHATIC: Bulky adenopathy bilateral supraclav and axillar CARDIOVASCULAR: Regular rate and rhythm without murmurs. RESPIRATORY: Breath sounds equal bilaterally. No accessory muscle use. GASTROINTESTINAL: Abdomen soft, non-tender, nondistended. EXTREMITIES: No cyanosis, or edema. MUSCULOSKELETAL: Adequate muscle tone. NEUROLOGICAL: No obvious focal deficit. Awake, alert, and oriented x3. PSYCHIATRIC: Appropriate mood and affect; insight and judgment normal. Assessment/Plan Problem List: (1) Non-Hodgkin lymphoma Status: Acute Plan: --follicular with features of transformation to B-cell lymphoma --definitely double hit, sent out to see if triple hit --port placed 04/28 --bone marrow biopsy 04/28, path pending --plan to give EPOCH+R once ECHO completed --on allopurinol 300mg PO daily --monitor LDH, uric acid (2) Acute pancreatitis Status: Resolved Plan: -Resolving --treatment per primary team Assessment 47y/o male admitted with pancreatitis, oncology consulted for diffuse adenopathy. Plan 1. monitor CBC, LDH, uric acid 2. continue allopurinol 3. Await echo 4. chemo teaching 5. plan to start chemo R- da- EPOCH inpatient--likely tomorrow. Problem Qualifiers (1) Non-Hodgkin lymphoma: (2) Acute pancreatitis: Qualified Code: K85.20 - Alcohol-induced acute pancreatitis, unspecified complication status Ruslan Connelly MD Apr 29, 2017 11:06
--- NOTE | 2017-04-29 13:00 | ECHRPT ---
Indication: HEART FAILURE CONCLUSIONS Normal left ventricular size. Wall thickness is normal. The left ventricular systolic function is hyperdynamic with an estimated ejection fraction in the ra nge of 65- 70%. No regional wall motion abnormalities are present. There is mild tricuspid valve regurgitation. Normal estimated pulmonary pressures. There is a trace to small pericardial effusion is primarily located anteriorly. A large left sided pleural effusion is noted. A large right sided pleural effusion is noted. No significant evidence of tamponade. BP: 176 / 84 HR: 52 Rhythm: MEASUREMENTS (Male / Female) Normal Values Technical Quality: 2D ECHO LV Diastolic Diameter PLAX 5.0 cm 4.2 - 5.9 / 3.9 - 5.3 cm LV Systolic Diameter PLAX 3.5 cm IVS Diastolic Thickness 0.8 cm 0.6 - 1.0 / 0.6 - 0.9 cm LVPW Diastolic Thickness 0.8 cm 0.6 - 1.0 / 0.6 - 0.9 cm LV Relative Wall Thickness 0.3 LVOT Diameter 2.4 cm Aortic Root Diameter 3.3 cm LA Systolic Diameter LX 2.4 cm 3.0 - 4.0 / 2.7 - 3.8 cm DOPPLER AV Peak Velocity 110.0 cm/s AV Peak Gradient 4.8 mmHg AV Mean Gradient 2.0 mmHg AV Velocity Time Integral 17.1 cm LVOT Peak Velocity 103.0 cm/s LVOT Peak Gradient 4.2 mmHg LVOT Velocity Time Integral 13.6 cm LVOT Cardiac Index 1695.0 cm/minm AV Area Cont Eq vti 3.6 cm AV Area Cont Eq pk 4.2 cm Mitral E Point Velocity 85.3 cm/s Mitral A Point Velocity 50.7 cm/s Mitral E to A Ratio 1.7 LV E' Lateral Velocity 6.7 cm/s Mitral E to LV E' Lateral Ratio 12.7 LV E' Septal Velocity 6.2 cm/s Mitral E to LV E' Septal Ratio 13.7 TR Peak Velocity 265.0 cm/s TR Peak Gradient 28.0 mmHg PV Peak Velocity 88.7 cm/s PV Peak Gradient 3.1 mmHg FINDINGS LEFT VENTRICLE Normal left ventricular size. Wall thickness is normal. The left ventricular systolic function is hyperdynamic with an estimated ejection fraction in the ra nge of 65- 70%. No regional wall motion abnormalities are present. Left ventricular diastolic function parameters are normal. RIGHT VENTRICLE Normal right ventricular size and systolic function. LEFT ATRIUM The left atrial size is normal. RIGHT ATRIUM The right atrial size is normal. ATRIAL SEPTUM Normal atrial septal thickness without atrial level shunting by limited color doppler interrogation. AORTA The aortic root and proximal ascending aorta are normal in size on limited imaging. MITRAL VALVE Structurally normal mitral valve. No mitral valve stenosis or regurgitation. AORTIC VALVE Trileaflet aortic valve. No aortic valve stenosis or regurgitation. TRICUSPID VALVE Structurally normal tricuspid valve. There is mild tricuspid valve regurgitation. Normal estimated pulmonary pressures. PULMONARY VALVE The pulmonary valve is not well visualized. VESSELS The inferior vena cava is normal in size. PERICARDIUM There is a trace to small pericardial effusion is primarily located anteriorly. A large left sided pleural effusion is noted. A large right sided pleural effusion is noted. No significant evidence of tamponade. Rinku Gonzales MD, FACC (Electronically Signed) Final Date:29 April 2017 13:00
--- NOTE | 2017-04-29 13:41 | PD.PSY.CON ---
Provisional Diagnosis Admission Date Apr 18, 2017 at 19:08 [place] I. Psychological factors affecting another underlying medical condition [place] II. Deferred [place] III. B cell lymphoma [place] IV. Low level of education [place] V. 53 History of Present Illness Service Psychiatry Consult Requested By Primary Care Physician No Primary Care Physician HPI The patient is a 47 y/o man, domiciled with his brother and [id number], unemployed, single, without any previous psychiatric history, no previous psychiatric hospitalizations, no previous suicidal attempts, with no medical history presented to the ED with complaints of abdominal pain, nausea and vomiting. During this hospitalization patient was found and a hilar mass and pleural effusion and diagnosed with B Cell Lymphoma, port was placed, will start chemotherapy. Patient has was that with acute pancreatitis managed with IV morphine and IV fluid. She was consulted to psychiatry to assess decision- making capacity to make medical decisions. On somatic evaluation today patient is calm, cooperative and pleasant. Patient reports good mood, denies depressive symptoms, denies anhedonia, denies hopelessness, denies helplessness , denies poor with sleep, reports fatigue, low level of concentration, denies suicidal and homicidal ideation, denies visual and auditory hallucinations. She is oriented 3, attention deficit, no fluctuation of consciousness present. Patient says that he came to the hospital feeling very sick, but he feels better now. Patient was able to stay that he was recently diagnosed with cancer and the doctors are working in his treatment. Patient states that he trusts medical team and his enthusiastic about following recommendations and cooperate with treatment plan. Patient denies the use of alcohol and drugs. Review of Systems Constitutional: DENIES: Diaphoretic episodes, Fatigue, Fever, Weight gain, Weight loss, Chills, Dizziness, Change in appetite, Night Sweats Endocrine: DENIES: Heat/cold intolerance, Polydipsia, Polyuria, Polyphagia Eyes: DENIES: Blurred vision, Diplopia, Eye inflammation, Eye pain, Vision loss , Photosensitivity, Double Vision Ears, nose, mouth, throat: DENIES: Tinnitus, Hearing loss, Vertigo, Nasal discharge, Oral lesions, Throat pain, Hoarseness, Ear Pain, Running Nose, Epistaxis, Sinus Pain, Toothache, Odynophagia Respiratory: DENIES: Apneas, Cough, Snoring, Wheezing, Hemoptysis, Sputum production, Shortness of breath Cardiovascular: DENIES: Chest pain, Palpitations, Syncope, Dyspnea on Exertion , PND, Lower Extremity Edema, Orthopnea, Claudication Genitourinary: DENIES: Sexual dysfunction, Urinary frequency, Urinary incontinence, Urgency, Hematuria, Dysuria, Nocturia, Penile Discharge, Testicular Pain, Testicular Swelling Hematologic/lymphatic: DENIES: Bruising, Lymphadenopathy Immunologic/allergic: DENIES: Eczema, Urticaria Neurologic: DENIES: Abnormal gait, Headache, Localized weakness, Paresthesias, Seizures, Speech Problems, Tremor, Poor Balance Psychiatric: DENIES: Anxiety, Confusion, Mood changes, Depression, Hallucinations, Agitation, Suicidal Ideation, Homicidal Ideation, Delusions Past Family Social History Coded Allergies: No Known Allergies (Unverified , 04/18/17) No Active Prescriptions or Reported Meds Current Medications Medications (Trade) Dose Ordered Sig/Shyla Route Start Time Stop Time Status Last Admin (NS Flush) 2 ml UNSCH PRN IV FLUSH 04/18/17 17:30 04/21/17 22:27 (Narcan Inj) 0.4 mg UNSCH PRN IV 04/18/17 19:30 (Porsha-Colace) 1 tab BID PO 04/18/17 21:00 04/19/17 20:24 (Milk Of Magnesia Liq) 30 ml Q12H PRN PO 04/18/17 19:30 (Senokot) 17.2 mg Q12H PRN PO 04/18/17 19:30 (Dulcolax Supp) 10 mg DAILY PRN RECTAL 04/18/17 19:30 (Lactulose Liq) 30 ml DAILY PRN PO 04/18/17 19:30 (Heparin Inj) 5,000 units Q8HR SQ 04/19/17 14:00 04/29/17 05:45 (Apresoline Inj) 10 mg Q6HR PRN IV PUSH 04/21/17 17:00 04/27/17 10:15 (Phenergan Inj) 12.5 mg Q8H PRN IM 04/26/17 13:15 04/29/17 10:29 (Zyloprim) 300 mg DAILY PO 04/27/17 09:00 04/29/17 08:00 (Procardia Xl) 90 mg DAILY PO 04/28/17 09:00 04/29/17 08:00 (Catapres) 0.1 mg Q6H PRN PO 04/27/17 15:00 04/29/17 08:07 Family History Patient denies psychiatric family history Social History Patient was born and raised in [place], he lives with his brother and [id number], is unemployed, he identified his mother as a main support, he is single, highest level of education is eighth grade Patient's Strengths (min. 2) Verbal communication, family support Physical Exam A physical exam, no tremors, no EPS, no psychomotor retardation or agitation Vital Signs Vital Signs Date Time Temp Pulse Resp B/P Pulse Ox O2 Delivery O2 Flow Rate FiO2 04/29/17 10:34 97 Nasal Cannula 4.00 04/29/17 08:04 98.5 77 20 161/102 04/26/17 17:38 21 I/O 04/28/17 04/28/17 04/29/17 08:00 16:00 00:00 Intake Total 240 ml 1200 ml 240 ml Output Total 300 ml 375 ml Balance -60 ml 1200 ml -135 ml Lab Results Laboratory Results Laboratory Tests Test 04/28/17 04/29/17 11:04 07:16 Hepatitis A IgM Antibody NEGATIVE Hepatitis B Surface Antigen NEGATIVE Hepatitis B Core IgM Antibody NEGATIVE Hepatitis C Antibody NEGATIVE White Blood Count 4.2 TH/MM3 Red Blood Count 3.89 MIL/MM3 Hemoglobin 11.2 GM/DL Hematocrit 33.3 % Mean Corpuscular Volume 85.8 FL Mean Corpuscular Hemoglobin 28.8 PG Mean Corpuscular Hemoglobin 33.6 % Concent Red Cell Distribution Width 16.5 % Platelet Count 270 TH/MM3 Mean Platelet Volume 6.9 FL Neutrophils (%) (Auto) 76.9 % Lymphocytes (%) (Auto) 10.0 % Monocytes (%) (Auto) 12.3 % Eosinophils (%) (Auto) 0.1 % Basophils (%) (Auto) 0.7 % Neutrophils # (Auto) 3.2 TH/MM3 Lymphocytes # (Auto) 0.4 TH/MM3 Monocytes # (Auto) 0.5 TH/MM3 Eosinophils # (Auto) 0.0 TH/MM3 Basophils # (Auto) 0.0 TH/MM3 CBC Comment DIFF FINAL Differential Comment Sodium Level 140 MEQ/L Potassium Level 4.2 MEQ/L Chloride Level 104 MEQ/L Carbon Dioxide Level 23.9 MEQ/L Anion Gap 12 MEQ/L Blood Urea Nitrogen 8 MG/DL Creatinine 0.84 MG/DL Estimat Glomerular Filtration 118 ML/MIN Rate Random Glucose 67 MG/DL Uric Acid 3.3 MG/DL Calcium Level 8.9 MG/DL Total Bilirubin 1.4 MG/DL Direct Bilirubin 0.9 MG/DL Indirect Bilirubin 0.5 MG/DL Aspartate Amino Transf 38 U/L (AST/SGOT) Alanine Aminotransferase 24 U/L (ALT/SGPT) Alkaline Phosphatase 200 U/L Lactate Dehydrogenase 657 U/L Total Protein 6.4 GM/DL Albumin 2.4 GM/DL Mental Status Examination Appearance man, good hygiene, [facility], calm and cooperative Speech: Unremarkable Orientation: x3 Memory: Unremarkable Thought Process: Logical Thought Content: Unremarkable Hallucination Type: None Suicidal Ideation: No Homicidal Ideation: No Previous Homicide Attempts: No Insight: Good Affect: Good Mood: Appropriate Motor Activity: Normal gait Assessment & Plan Problem List: (1) Psychological factors affecting medical condition Assessment & Plan: On psychiatric evaluation today the patient does not present any evidence of objective or subjective acute, concerning or significant symptomatology of depression, anxiety, tad or psychosis. He denies suicidal and homicidal ideation, patient denies visual and auditory hallucinations. Patient is oriented 3. No gross cognitive impairment present. Logical, coherent and relevant. No paranoia, no delusions, no agitation or aggressive behavior present. Patient does express a for understanding of the reason of his hospitalization, medical condition, and is able to verbalize consequences of refusing treatment. He does not seem to have a good appreciation of what his cancer could means in terms of prognosis and details of the nature of this illness, but this lack of appreciation is most probably secondary to low level of education and in my opinion doesn't deprive him of his capacity to participate in the medical treatment at this moment. The patient is not refusing treatment and he is not requesting to leave A, is actually motivated to continue medical treatment and follow medical recommendations. However, I understand that at any moment mentation might change in his capacity as well. However, patient has made very clear that in case of incapacity to make decisions he has appointed his mother as a health care by proxy. At this moment the patient does not meet criteria for psychiatric admission. No psychotropics indicated. Extensive support, motivation and psychoeducation provided. Consult appreciated. ICD Code: F54 Assessment & Plan Estimated LOS: days Renato Rios MD Apr 29, 2017 13:41
--- NOTE | 2017-04-29 14:44 | PD.CONS ---
Consult Service Palliative Care Consult Requested By MAHI Hoffman. Primary Care Physician No Primary Care Physician Reason for Consultation a. To assist with evaluation and management of symptoms including: Debility. b. To assist medical decision maker(s) with: better understanding of current medical conditions; weighing benefits/burdens of medical treatment options; making medical treatment decisions. . (Demetrice Brody) HPI History of Present Illness Mr. Werner is a 47-year-old male with no significant medical history who presented to the emergency room on 04/18/17 for evaluation of nausea, vomiting and diarrhea for the previous 2 weeks. Laboratory workup indicating acute renal insufficiency with BUN/creatinine 14/1.37, elevated LFTs to include total bilirubin 3.5, AST 96, ALT 96, alkaline phosphatase 762. elevated lipase of 4916. Chest x-ray revealing right heel or mass which could indicate adenopathy, right effusion with abnormal opacity suggesting infiltrate. UA negative for nitrate, trace leukocytes. Patient was admitted for further management of acute pancreatitis and dehydration. Chest CT 04/20/17 revealing bilateral pleural effusions and extensive mediastinal and axillary adenopathy. Abdominal CT also revealing diffuse lymphadenopathy. Oncology, Dr. Connelly consulted on 04/21/17 for evaluation of diffuse adenopathy. Lymph node biopsy recommended. Axillary lymph node biopsy obtained on 04/22/17. Gallbladder ultrasound 04/22/17 showing small liver. Repeat chest CT 04/26/17 showing left pleural effusion or, extensive bulky adenopathy. Lymph node pathology consistent with aggressive CD10 positive B- cell non-Hodgkin lymphoma. Bone marrow biopsy 04/27/17 -pathology still pending. Oncology following, MediPort placed on 04/28/17. Palliative care was consulted for assistance with goals of care and to determine healthcare surrogate decision maker. Patient seen in his room. He was resting in bed in no acute distress. Patient is alert and oriented x self, place and situation. Laboratory today revealing WBC 4.2, Hgb 11.2, platelet count 270. Sodium 140, potassium 4.2, BUN/ creatinine 8/0.84. LFTs remain elevated. Total bilirubin 1.4, direct bilirubin 0.9, AST 38, ALT 24, alkaline phosphatase 200. Albumin 2.4. Negative hepatitis panel. Pending HIV results. Patient afebrile, hypertensive with SBP in the 160s. Currently on 4 L nasal cannula, oxygen saturation in the high 90s. Met with patient, mother Oxana, brother Derick and patient's son Jovani Haines. obtained past medical history and psychosocial history. Medical update provided. Provided simple explanation of non-Hodgkin lymphoma to include treatment plan. Provided printed material regarding non-Hodgkin lymphoma. All questions were answering great detail. Assisted in completion of designation of healthcare surrogate. Family appreciative of my visit today. . Function/Cognitive Trajectory Patient independent with ADLs prior to this hospitalization. No cognitive or functional deficit reported. . (Demetrice Brody) Review of Systems Constitutional: COMPLAINS OF: Fatigue, Fever, Change in appetite, Generalized weakness Endocrine: DENIES: Heat/cold intolerance Eyes: DENIES: Eye pain, Vision loss Ears, nose, mouth, throat: DENIES: Nasal discharge, Ear Pain, Running Nose Respiratory: DENIES: Cough, Shortness of breath Cardiovascular: DENIES: Chest pain, Palpitations, Lower Extremity Edema Gastrointestinal: COMPLAINS OF: Abdominal pain, Nausea, DENIES: Vomiting, Difficulty Swallowing Genitourinary: DENIES: Urinary incontinence Musculoskeletal: DENIES: Joint pain, Back pain Integumentary: DENIES: Abnormal pigmentation Hematologic/Lymphatics: DENIES: Bruising Immunologic/Allergic: DENIES: Eczema Neurologic: DENIES: Abnormal gait, Seizures, Speech Problems Psychiatric: COMPLAINS OF: Depression, DENIES: Anxiety, Hallucinations ( Demetrice Brody) Past Family Social History Coded Allergies: Milk Containing Products (Verified Allergy, Mild, diarrhea, 06/11/17) Past Medical History EtOH use and abuse Tobacco use and abuse . Past Surgical History Patient denies any surgical history. Reported Medications None. . Current Medications Medications (Trade) Dose Ordered Sig/Shyla Route Start Time Stop Time Status Last Admin (NS Flush) 2 ml UNSCH PRN IV FLUSH 04/18/17 17:30 04/21/17 22:27 (Narcan Inj) 0.4 mg UNSCH PRN IV 04/18/17 19:30 (Porsha-Colace) 1 tab BID PO 04/18/17 21:00 04/19/17 20:24 (Milk Of Magnesia Liq) 30 ml Q12H PRN PO 04/18/17 19:30 (Senokot) 17.2 mg Q12H PRN PO 04/18/17 19:30 (Dulcolax Supp) 10 mg DAILY PRN RECTAL 04/18/17 19:30 (Lactulose Liq) 30 ml DAILY PRN PO 04/18/17 19:30 (Heparin Inj) 5,000 units Q8HR SQ 04/19/17 14:00 04/29/17 05:45 (Apresoline Inj) 10 mg Q6HR PRN IV PUSH 04/21/17 17:00 04/27/17 10:15 (Phenergan Inj) 12.5 mg Q8H PRN IM 04/26/17 13:15 04/29/17 10:29 (Zyloprim) 300 mg DAILY PO 04/27/17 09:00 04/29/17 08:00 (Procardia Xl) 90 mg DAILY PO 04/28/17 09:00 04/29/17 08:00 (Catapres) 0.1 mg Q6H PRN PO 04/27/17 15:00 04/29/17 08:07 Family History Patient denies any heart disease or cancer in his family. Patient has 8 children ages 27 to 7 who are alive and well. . Substance Use Tobacco: History of smoking 1 pack a day for 40 years. Quit 2 months ago. Alcohol: History of EtOH abuse. Average 8 beers daily. Quit 2 months ago. Prescription med abuse: Denies. Illicits: Denies. . Psychosocial History Patient was born and raised in [place], he lives with his brother and [id number]. Patient is single, has 8 children (5 boys and 3 girls) ages 27 to 7 years old. 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 Highest level of education is eighth grade. No service. . Spiritual/Cultural Factors No latter-day affiliation. . (Demetrice Brody) Living Will: Never completed Health Care Surrogate: Copy in medical record Durable Power of Patient Services Coordinator: Never completed Date completed: 04/29/17. . Health Care Surrogate(s): HSC/mother Oxana Seals. Alternate surrogate -sister France Garcia. . Documented care wishes: No living will completed. . Today's verbally stated goals: Full code. Aggressive management to include chemotherapy. . Family/friends goals: Family supportive patient's wishes. Ethical and Legal Issues No ethical and legal issues have been identified. Patient participating in medical decision-making. . (eDmetrice Brody) Physical Exam Vital Signs Date Time Temp Pulse Resp B/P Pulse Ox O2 Delivery O2 Flow Rate FiO2 04/29/17 10:34 97 Nasal Cannula 4.00 04/29/17 08:09 96 Nasal Cannula 4.00 04/29/17 08:04 98.5 77 20 161/102 97 04/29/17 04:00 79 04/29/17 04:00 97.3 76 20 165/98 98 04/29/17 00:00 90 04/29/17 00:00 96.8 96 20 167/93 94 04/28/17 21:03 Nasal Cannula 4.00 04/28/17 20:00 89 04/28/17 20:00 97.5 87 22 139/77 93 04/28/17 18:48 93 Nasal Cannula 4.00 04/28/17 18:48 Nasal Cannula 4.00 04/28/17 16:00 88 04/28/17 16:00 97.6 84 16 152/92 93 04/28/17 04/29/17 18:59 06:59 Intake Total 1200 ml 480 ml Output Total 575 ml Balance 1200 ml -95 ml Intake Oral 720 ml 480 ml IV Total 480 ml Output Urine Total 575 ml # Voids 2 # Bowel Movements 0 Exam CONSTITUTIONAL/GENERAL: This is an adequately nourished male in no apparent distress. TUBES/LINES/DRAINS: PIV, Mediport to right upper chest. SKIN: No jaundice, rashes, or lesions. Ecchymoses on upper extremities. No wounds seen anteriorly. Skin temperature appropriate. Not diaphoretic. HEAD: Atraumatic. Normocephalic. EYES: Pupils equal and round and reactive. Extraocular motions intact. No scleral icterus. No injection or drainage. ENT: Hearing grossly normal. Nose without bleeding or purulent drainage. Moist oral mucosa. Poor dentition. NECK: Trachea midline. Supple, nontender. CARDIOVASCULAR: Regular rate and rhythm without murmurs, gallops, or rubs. Peripheral pulses symmetric. RESPIRATORY/CHEST: Symmetric, unlabored respirations. Clear to auscultation. Breath sounds equal bilaterally. No wheezes, rales, or rhonchi. GASTROINTESTINAL: Abdomen soft, nondistended, mildly tender with palpation. No guarding. Bowel sounds present. GENITOURINARY: Without palpable bladder distension. Using urinal without difficulty. MUSCULOSKELETAL: Extremities without clubbing, cyanosis, or edema. No mottling or clubbing. NEUROLOGICAL: Awake and alert. Motor and sensory grossly within normal limits. Follows commands. Cognitively sharp. Moves all extremities. PSYCHIATRIC: No obvious anxiety/depression. Pleasant and cooperative. . (Demetrice Brody) Diagnostic Tests Laboratory Laboratory Tests Test 04/27/17 04/27/17 04/27/17 04/28/17 07:05 11:03 16:40 06:04 Sodium Level 139 MEQ/L 139 MEQ/L (136-145) (136-145) Potassium Level 3.6 MEQ/L 3.6 MEQ/L (3.5-5.1) (3.5-5.1) Chloride Level 104 MEQ/L 104 MEQ/L (98-107) (98-107) Carbon Dioxide Level 20.1 MEQ/L 23.1 MEQ/L (21.0-32.0) (21.0-32.0) Anion Gap 15 MEQ/L (5-15) 12 MEQ/L (5-15) Blood Urea Nitrogen 4 MG/DL (7-18) 6 MG/DL (7-18) Creatinine 0.71 MG/DL 0.80 MG/DL (0.60-1.30) (0.60-1.30) Estimat Glomerular Filtration 143 ML/MIN 125 ML/MIN Rate (>89) (>89) Random Glucose 76 MG/DL 85 MG/DL (74-106) (74-106) Calcium Level 8.8 MG/DL 8.5 MG/DL (8.5-10.1) (8.5-10.1) Lipase 854 U/L (73-393) White Blood Count 4.6 TH/MM3 4.4 TH/MM3 (4.0-11.0) (4.0-11.0) Red Blood Count 4.44 MIL/MM3 4.05 MIL/MM3 (4.50-5.90) (4.50-5.90) Hemoglobin 13.0 GM/DL 11.6 GM/DL (13.0-17.0) (13.0-17.0) Hematocrit 37.6 % 34.6 % (39.0-51.0) (39.0-51.0) Mean Corpuscular Volume 84.5 FL 85.4 FL (80.0-100.0) (80.0-100.0) Mean Corpuscular Hemoglobin 29.3 PG 28.6 PG (27.0-34.0) (27.0-34.0) Mean Corpuscular Hemoglobin 34.7 % 33.5 % Concent (32.0-36.0) (32.0-36.0) Red Cell Distribution Width 16.5 % 16.8 % (11.6-17.2) (11.6-17.2) Platelet Count 346 TH/MM3 333 TH/MM3 (150-450) (150-450) Mean Platelet Volume 7.5 FL 7.2 FL (7.0-11.0) (7.0-11.0) Neutrophils (%) (Auto) 79.4 % 78.1 % (16.0-70.0) (16.0-70.0) Lymphocytes (%) (Auto) 8.9 % 9.7 % (9.0-44.0) (9.0-44.0) Monocytes (%) (Auto) 10.6 % 11.3 % (0.0-8.0) (0.0-8.0) Eosinophils (%) (Auto) 0.1 % (0.0-4.0) 0.1 % (0.0-4.0) Basophils (%) (Auto) 1.0 % (0.0-2.0) 0.8 % (0.0-2.0) Neutrophils # (Auto) 3.6 TH/MM3 3.4 TH/MM3 (1.8-7.7) (1.8-7.7) Lymphocytes # (Auto) 0.4 TH/MM3 0.4 TH/MM3 (1.0-4.8) (1.0-4.8) Monocytes # (Auto) 0.5 TH/MM3 0.5 TH/MM3 (0-0.9) (0-0.9) Eosinophils # (Auto) 0.0 TH/MM3 0.0 TH/MM3 (0-0.4) (0-0.4) Basophils # (Auto) 0.0 TH/MM3 0.0 TH/MM3 (0-0.2) (0-0.2) CBC Comment DIFF FINAL DIFF FINAL Differential Comment Bone Marrow Immunophenotyping Uric Acid 3.6 MG/DL (2.6-7.2) Lactate Dehydrogenase 658 U/L (87-241) Test 04/28/17 04/29/17 11:04 07:16 Hepatitis A IgM Antibody NEGATIVE (NEGATIVE) Hepatitis B Surface Antigen NEGATIVE (NEGATIVE) Hepatitis B Core IgM Antibody NEGATIVE (NEGATIVE) Hepatitis C Antibody NEGATIVE (NEGATIVE) White Blood Count 4.2 TH/MM3 (4.0-11.0) Red Blood Count 3.89 MIL/MM3 (4.50-5.90) Hemoglobin 11.2 GM/DL (13.0-17.0) Hematocrit 33.3 % (39.0-51.0) Mean Corpuscular Volume 85.8 FL (80.0-100.0) Mean Corpuscular Hemoglobin 28.8 PG (27.0-34.0) Mean Corpuscular Hemoglobin 33.6 % Concent (32.0-36.0) Red Cell Distribution Width 16.5 % (11.6-17.2) Platelet Count 270 TH/MM3 (150-450) Mean Platelet Volume 6.9 FL (7.0-11.0) Neutrophils (%) (Auto) 76.9 % (16.0-70.0) Lymphocytes (%) (Auto) 10.0 % (9.0-44.0) Monocytes (%) (Auto) 12.3 % (0.0-8.0) Eosinophils (%) (Auto) 0.1 % (0.0-4.0) Basophils (%) (Auto) 0.7 % (0.0-2.0) Neutrophils # (Auto) 3.2 TH/MM3 (1.8-7.7) Lymphocytes # (Auto) 0.4 TH/MM3 (1.0-4.8) Monocytes # (Auto) 0.5 TH/MM3 (0-0.9) Eosinophils # (Auto) 0.0 TH/MM3 (0-0.4) Basophils # (Auto) 0.0 TH/MM3 (0-0.2) CBC Comment DIFF FINAL Differential Comment Sodium Level 140 MEQ/L (136-145) Potassium Level 4.2 MEQ/L (3.5-5.1) Chloride Level 104 MEQ/L (98-107) Carbon Dioxide Level 23.9 MEQ/L (21.0-32.0) Anion Gap 12 MEQ/L (5-15) Blood Urea Nitrogen 8 MG/DL (7-18) Creatinine 0.84 MG/DL (0.60-1.30) Estimat Glomerular Filtration 118 ML/MIN Rate (>89) Random Glucose 67 MG/DL (74-106) Uric Acid 3.3 MG/DL (2.6-7.2) Calcium Level 8.9 MG/DL (8.5-10.1) Total Bilirubin 1.4 MG/DL (0.2-1.0) Direct Bilirubin 0.9 MG/DL (0.0-0.2) Indirect Bilirubin 0.5 MG/DL (0.0-0.8) Aspartate Amino Transf 38 U/L (15-37) (AST/SGOT) Alanine Aminotransferase 24 U/L (12-78) (ALT/SGPT) Alkaline Phosphatase 200 U/L (45-117) Lactate Dehydrogenase 657 U/L (87-241) Total Protein 6.4 GM/DL (6.4-8.2) Albumin 2.4 GM/DL (3.4-5.0) (Demetrice Brody) Result Diagram: 04/29/17 0716 04/29/17 0716 Imaging Last Impressions Port Line Insertion 04/27/17 0000 Signed Impressions: Service Date/Time: Thursday, April 27, 2017 14:56 - CONCLUSION: 1. Bulky bilateral lower cervical lymphadenopathy. 2. Uncomplicated ultrasound and fluoroscopic guided implanted central venous port catheter placement as described in detail above. An 8 [place] Power port was placed. Liang Peralta MD Bone Biopsy CT 04/27/17 0000 Signed Impressions: Service Date/Time: Thursday, April 27, 2017 16:22 - CONCLUSION: 1. Uncomplicated CT guided bone marrow aspirate. 2. Uncomplicated CT guided bone marrow biopsy. Tray Patel MD Chest CT 04/25/17 0000 Signed Impressions: Service Date/Time: Wednesday, April 26, 2017 19:00 - CONCLUSION: The right pleural effusion is slightly larger on the left side has not changed. Extensive bulky adenopathy as before and malignancies such as lymphoma is suspected. Leonor Chavez MD Gall Bladder Ultrasound 04/22/17 0000 Signed Impressions: Service Date/Time: Saturday, April 22, 2017 07:35 - CONCLUSION: Small liver with focal abdomen only incompletely evaluated. Large right pleural effusion. effusion. Kirk Briceño MD FACR Abdomen CT 04/20/17 0000 Signed Impressions: Service Date/Time: Thursday, April 20, 2017 19:40 - CONCLUSION: Limited exam because of lack of intravenous contrast. Lymphoma is suspected. Pathological diagnosis could be obtained with ultrasound biopsy of the cervical, axillary or inguinal adenopathy. Kirk Briceño MD FACR Chest X-Ray 04/18/17 0000 Signed Impressions: Service Date/Time: Tuesday, April 18, 2017 21:18 - CONCLUSION: 1. Right hilar mass which could indicate adenopathy. 2. Right effusion with abnormal opacity at the right lung base which may indicate infiltrate. Goldy Suarez MD Procedures * 04/22/17 -axillary lymph node biopsy * 04/27/17 -bone marrow biopsy * 04/28/17 -MediPort placement . (Demetrice Brody) Patient/Family Conference Present at Family Conference: Patient's mother Oxana Seals, patient's son Jovani Werner Jr and pt's brother Jose Lucero. . Family Conference Time (mins): 35 Family Conference Location: Bedside Issues Discussed: * Palliative care role, purpose, approach * Additional medical, psychosocial, and spiritual history * Patients general health, functional status, and cognitive changes in the months leading up to the current hospitalization * Patient/family understanding of the current medical problems -newly diagnosed aggressive non-Hodgkin lymphoma * Patient/family understanding of prognosis * Patients goals of care as best understood from advance directives and/or conversations and/or values * Current medical treatment options and benefits/burdens of those options * Questions answered to the best of my ability * Palliative care contact information provided . (Demetrice Brody) Assessment and Plan Disease Oriented Problem List: (1) Non-Hodgkin lymphoma (2) Acute pancreatitis (3) ALDO (acute kidney injury) Symptom Scale: (1) Nausea 0-10 Scale: 3 (2) Poor appetite 0-10 Scale: 5 (3) Debility 0-10 Scale: Unable to quantify Pertinent Non-Medical Issues Psychosocial: Single, unemployed. Has 8 children. Highest level of education is eighth grade. No service. Spiritual: No latter-day affiliations. Legal: Designation of healthcare surrogate completed. Ethical issues impacting care: No ethical issues identified. Patient participating in medical decision-making. . Important Contacts HCS/mother Nu Seals . Alt HCS/sister France Garcia . . Prognosis Mr. Werner is a 47-year-old male with no significant medical history who presented to the emergency room on 04/18/17 for evaluation of nausea, vomiting and diarrhea for the previous 2 weeks. Lymph node pathology consistent with aggressive CD10 positive B-cell non-Hodgkin lymphoma. Bone marrow biopsy and HIV testing results still pending. Pending results of additional testing for prognostication at this time. Patient to start chemotherapy. . Code Status: Full Code Plan * CODE STATUS: FULL code. * HEALTHCARE DECISION-MAKING: Patient participating in medical decision-making. Has been evaluated by psychiatry for capacity. Patient appears to have a fair understanding of his illness and the ability to weight benefits and burdens of treatment options. As per psych, his lack of appreciation is most likely secondary to low level of education. Designation of healthcare surrogate completed, patient designated his mother Oxana Seals as HCS and alt [facility] sister France Garcia. * GOALS OF CARE: Patient verbalized feeling motivated to continue with current medical treatment to include chemotherapy and to follow medical recommendations. Discussed with patient that there is a long road ahead of him and that he needs to follow closely with oncology upon discharge. Discussed that abstinence of ETOH is imperative for his recovery. Family supportive of goals of care. * SYMPTOMS: Nausea, likely secondary to acute pancreatitis. Phenergan available as needed. = Poor appetite, worsening for the past 2 weeks. Exacerbated by nausea. = Debility, secondary to burden of disease, acute illness. = Constipation: MOM, Senokot, lactulose and Dulcolax suppository available as needed. * Palliative care contact information has been provided to patient and family. * Palliative care will continue to follow-up for further clarifications of goals of care as patient's clinical course continues to evolve. . (Demetrice Brody) Time Spent Total Floor Time (mins): 75 (Total time to include review and summarization of available medical records, physical exam, goals of care conversation with patient and family, assistance in completion of designation of healthcare surrogate.) >50% Counseling/Coord of Care: Yes (Demetrice Brody) Thank you for the opportunity to participate in the care of Mr. Werner. (Demetrice Brody) Attestation To help prompt me to consider important information that might be impacting today's encounter and assessment, information from prior notes written by myself or my colleagues may have been "brought forward" into today's note. My signature on this note, however, is an attestation that I personally performed the exam, history, and/or decision-making noted today, and, unless otherwise indicated, the interactions with patient, family, and staff as well as the review of records all occurred today. I also attest that the listed assessment and stated plan reflect my best clinical judgment today based on the combination of historical information, prior notes, and today's exam/ interactions. When time spent is documented, it refers only to time spent today by the signer, or if indicated, combined time spent today by collaborating physician/nurse practitioner. (Demetrice Brody) Collaborating MD Comments Chart reviewed. Case discussed with palliative care DERRICK MAN. Above DERRICK MAN note reviewed and I concur. . (Brady Mcghee MD) Demetrice Brody Apr 29, 2017 14:44 Brady Mcghee MD Jul 18, 2017 16:14
[2017-04-29] MEDS ORDERED: SODIUM CHLOR 0.9% 1000 ML INJ 1,000 ML IV SCH (15:00)
--- NOTE | 2017-04-29 22:27 | MB ---
cc: Ashley ANDERSON M.D. DATE OF CONSULTATION 04/29/2017 HISTORY Mr. Werner is a 47-year-old black male who presented with weight loss, shortness of breath and loss of energy. He was found to have extensive lymphadenopathy and was also felt to have pancreatitis. 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 He is being followed by oncology with chemotherapy planned to begin tomorrow. I was asked to see him because he is getting more short of breath and a follow-up CT scan on the reveals enlarging pleural effusions right greater than left. The patient was a former smoker, quit smoking several months ago but has never had a previous diagnosis of lung disease. No cough. No congestion. No chest pain or hemoptysis. He is comfortable at rest on O2 with a saturation on 4 liters of 97%. PAST MEDICAL HISTORY Otherwise unremarkable. He has never had surgery or any serious medical illnesses. SOCIAL HISTORY He used to drink beer frequently. Smoked a pack per day for about 30-35 years, quit 2 months ago. Currently was living with a family member. No illicit drug use. ALLERGIES None known. FAMILY HISTORY Negative for malignancy. MEDICATIONS Reviewed and recorded in his EMR. PHYSICAL EXAMINATION GENERAL: Comfortable at rest on nasal oxygen, 97 degrees, 128/77, respirations 18, pulse is 88. HEENT: Sclerae anicteric. Mucous membranes are moist. LYMPHATICS: Palpable adenopathy in the supraclavicular region and axillary regions. CHEST: Diminished bilaterally. CARDIOVASCULAR: No harsh murmur. No audible S3. ABDOMEN: Soft, nontender. EXTREMITIES: No edema or cyanosis. IMAGING CT scan performed on 04/25, large right pleural effusions and bulky lymphadenopathy in the mediastinum consistent with his underlying lymphoma. LABORATORY DATA PT/INR normal. Platelet count is normal at 270. White count 4200. DISCUSSION Mr. Werner has presented with a non-Hodgkin's lymphoma. He is developing increasing pleural effusions which should be drained both for symptomatic relief and diagnostic purposes. I have requested a radiology consultation for drainage of both effusions beginning with the right which is larger and I have placed orders for laboratory evaluation. Further diagnostic and/or therapeutic intervention will depend on his response to therapy and ongoing clinical course. R. MD MANOJ Hall/KK /5:56 PM /10:23 PM
[2017-04-30] VITALS (16 sets, daily range): BP systolic 119–191; BP diastolic 71–95; PULSE 73–108; RESP 18–24; TEMP 96.5–97.6; O2SAT 92–96
[2017-04-30] MEDS: PROMETHAZINE INJ 25 MG/ML VIAL IM PRN ×2 (04:34→11:52)
[2017-04-30 05:11] LABS: AUTOMATED NEUTROPHIL # 3.3 TH/MM3 (1.8-7.7); BASOPHIL % 0.6 % (0.0-2.0); HEMATOCRIT 32.8 % (39.0-51.0); HEMO FLAGS DIFF FINAL; LYMPH % 10.3 % (9.0-44.0); LYMPHOCYTE # 0.4 TH/MM3 (1.0-4.8); MEAN CELL VOLUME 85.5 FL (80.0-100.0); MEAN CORPUSCULAR HEMOGLOBIN 29.2 PG (27.0-34.0); MEAN CORPUSCULAR HGB CONC 34.1 % (32.0-36.0); MONO % 9.3 % (0.0-8.0); NEUT % 79.8 % (16.0-70.0); PLATELET COUNT 274 TH/MM3 (150-450); RED BLOOD COUNT 3.84 MIL/MM3 (4.50-5.90); RED CELL DISTRIBUTION WIDTH 16.4 % (11.6-17.2); WHITE BLOOD COUNT 4.1 TH/MM3 (4.0-11.0)
[2017-04-30 05:58] LABS: BICARBONATE 25.4 MEQ/L (21.0-32.0); INDIRECT BILIRUBIN 0.5 MG/DL (0.0-0.8); POTASSIUM 3.3 MEQ/L (3.5-5.1); TOTAL BILIRUBIN ADULT 1.4 MG/DL (0.2-1.0); URIC ACID 2.8 MG/DL (2.6-7.2)
[2017-04-30] MEDS: HEPARIN SODIUM - SQ 10,000 UNITS/ML VIAL SQ SCH ×3 (06:00→22:00)
--- NOTE | 2017-04-30 08:10 | PD.ONC.PN ---
Subjective Subjective Remarks Did no sleep well last night because he is worry about his cancer. No Abdominal pain. Agree to start chemotherapy today. Objective Data Date Time Temp Pulse Resp B/P Pulse Ox O2 Delivery O2 Flow Rate FiO2 04/30/17 04:00 96.9 78 18 140/84 95 04/30/17 04:00 83 04/30/17 00:00 96.5 88 20 136/84 96 04/30/17 00:00 90 04/29/17 21:54 94 Nasal Cannula 4.00 04/29/17 20:00 92 04/29/17 20:00 96.4 84 20 140/82 92 04/29/17 19:56 Nasal Cannula 4.00 04/29/17 19:00 94 Nasal Cannula 4.00 04/29/17 18:30 90 Nasal Cannula 5.00 04/29/17 16:00 97.2 88 26 139/75 91 04/29/17 12:09 90 04/29/17 12:00 97.1 87 26 128/77 91 04/29/17 10:34 97 Nasal Cannula 4.00 04/29/17 08:09 96 Nasal Cannula 4.00 04/30/17 04/30/17 04/30/17 06:59 14:59 22:59 Output Total 200 ml Balance -200 ml Result Diagram: 04/30/17 0430 04/30/17 0430 Laboratory Results Laboratory Tests Test 04/30/17 04:30 White Blood Count 4.1 TH/MM3 Red Blood Count 3.84 MIL/MM3 Hemoglobin 11.2 GM/DL Hematocrit 32.8 % Mean Corpuscular Volume 85.5 FL Mean Corpuscular Hemoglobin 29.2 PG Mean Corpuscular Hemoglobin 34.1 % Concent Red Cell Distribution Width 16.4 % Platelet Count 274 TH/MM3 Mean Platelet Volume 7.0 FL Neutrophils (%) (Auto) 79.8 % Lymphocytes (%) (Auto) 10.3 % Monocytes (%) (Auto) 9.3 % Eosinophils (%) (Auto) 0.0 % Basophils (%) (Auto) 0.6 % Neutrophils # (Auto) 3.3 TH/MM3 Lymphocytes # (Auto) 0.4 TH/MM3 Monocytes # (Auto) 0.4 TH/MM3 Eosinophils # (Auto) 0.0 TH/MM3 Basophils # (Auto) 0.0 TH/MM3 CBC Comment DIFF FINAL Differential Comment Sodium Level 138 MEQ/L Potassium Level 3.3 MEQ/L Chloride Level 100 MEQ/L Carbon Dioxide Level 25.4 MEQ/L Anion Gap 13 MEQ/L Blood Urea Nitrogen 7 MG/DL Creatinine 0.72 MG/DL Estimat Glomerular Filtration 141 ML/MIN Rate Random Glucose 72 MG/DL Uric Acid 2.8 MG/DL Calcium Level 8.4 MG/DL Total Bilirubin 1.4 MG/DL Direct Bilirubin 0.9 MG/DL Indirect Bilirubin 0.5 MG/DL Aspartate Amino Transf 41 U/L (AST/SGOT) Alanine Aminotransferase 25 U/L (ALT/SGPT) Alkaline Phosphatase 206 U/L Lactate Dehydrogenase 667 U/L Total Protein 6.4 GM/DL Albumin 2.5 GM/DL Lipase 535 U/L Administered Medications Medications (Trade) Dose Ordered Sig/Shyla Route PRN Reason Start Time Stop Time Status Last Admin Dose Admin Sodium Chloride (NS Flush) 2 ml UNSCH PRN IV FLUSH FLUSH AFTER USING IV ACCESS 04/18/17 17:30 04/21/17 22:27 Senna/Docusate Sodium (Porsha-Colace) 1 tab BID PO 04/18/17 21:00 04/19/17 20:24 Heparin Sodium (Porcine) (Heparin Inj) 5,000 units Q8HR SQ 04/19/17 14:00 04/29/17 14:14 Hydralazine HCl (Apresoline Inj) 10 mg Q6HR PRN IV PUSH SBP>160, DBP>90 04/21/17 17:00 04/27/17 10:15 Promethazine HCl (Phenergan Inj) 12.5 mg Q8H PRN IM PERSISTENT NAUSEA 04/26/17 13:15 04/30/17 04:34 Allopurinol (Zyloprim) 300 mg DAILY PO 04/27/17 09:00 04/29/17 08:00 Nifedipine (Procardia Xl) 90 mg DAILY PO 04/28/17 09:00 04/29/17 08:00 Clonidine (Catapres) 0.1 mg Q6H PRN PO SBP>160, DBP>90 04/27/17 15:00 04/29/17 08:07 Objective Remarks GENERAL: Well-nourished, well-developed patient. SKIN: Warm and dry. HEAD: Normocephalic. EYES: No scleral icterus. No injection or drainage. NECK: Supple, trachea midline. No JVD. Bulky bilateral supraclav lymphadenopathy. LYMPHATIC: Bilateral axillary LAD CARDIOVASCULAR: Regular rate and rhythm without murmurs. RESPIRATORY: Breath sounds equal bilaterally. No accessory muscle use. GASTROINTESTINAL: Abdomen soft, non-tender, nondistended. EXTREMITIES: No cyanosis, or edema. MUSCULOSKELETAL: Adequate muscle tone. NEUROLOGICAL: No obvious focal deficit. Awake, alert, and oriented x3. PSYCHIATRIC: Appropriate mood and affect; insight and judgment normal. Assessment/Plan Problem List: (1) Non-Hodgkin lymphoma Status: Acute Plan: --follicular with features of transformation to B-cell lymphoma --Triple hit + --port placed 04/28 --bone marrow biopsy 04/28, path pending --plan to give EPOCH+R once ECHO completed --on allopurinol 300mg PO daily --monitor LDH, uric acid --Hepatitis panel negative, ECHO showed normal EF (2) Acute pancreatitis Status: Resolved Plan: -Resolving --treatment per primary team Assessment 47y/o male admitted with pancreatitis, oncology consulted for diffuse adenopathy. Plan 1. Explained side effect of chemo again to patient including renal failure due to tumor lysis syndrome, myelosuppression, sepsis an . He voices understanding and wants to proceed with treatment. 2. continue allopurinol 3. Start chemo per protocol today. 4. Monitor for sign of tumor lysis syndrome Problem Qualifiers (1) Non-Hodgkin lymphoma: (2) Acute pancreatitis: Qualified Code: K85.20 - Alcohol-induced acute pancreatitis, unspecified complication status Ruslan Connelly MD Apr 30, 2017 08:10
[2017-04-30] MEDS: DOCUSATE SODIUM 50 MG/SENNA 8.6 MG TAB PO SCH ×2 (09:00→21:00)
[2017-04-30] MEDS: NIFEdipine 90 MG SUSTAINED RELEASE TAB PO SCH (09:00)
[2017-04-30] MEDS ORDERED: POTASSIUM CHLOR 20 MEQ PREMIX 100 ML IV ONE (10:00)
[2017-04-30] MEDS: ALLOPURINOL 300 MG TAB PO SCH (10:21)
--- NOTE | 2017-04-30 10:48 | HHI.PR ---
Subjective Remarks Patient reports persistent shortness of breath. Shallow breasting. He is still having nausea and vomiting. Objective Vitals Vital Signs Date Time Temp Pulse Resp B/P Pulse Ox O2 Delivery O2 Flow Rate FiO2 04/30/17 09:00 95 Nasal Cannula 4.00 04/30/17 08:45 96.7 73 20 191/90 94 178/94 04/30/17 04:00 96.9 78 18 140/84 95 04/30/17 04:00 83 04/30/17 00:00 96.5 88 20 136/84 96 04/30/17 00:00 90 04/29/17 21:54 94 Nasal Cannula 4.00 04/29/17 20:00 92 04/29/17 20:00 96.4 84 20 140/82 92 04/29/17 19:56 Nasal Cannula 4.00 04/29/17 19:00 94 Nasal Cannula 4.00 04/29/17 18:30 90 Nasal Cannula 5.00 04/29/17 16:00 97.2 88 26 139/75 91 04/29/17 12:09 90 04/29/17 12:00 97.1 87 26 128/77 91 I/O 04/29/17 04/29/17 04/29/17 04/30/17 04/30/17 04/30/17 07:00 15:00 23:00 07:00 15:00 23:00 Intake Total 240 ml 480 ml Output Total 200 ml 775 ml 200 ml Balance 40 ml -295 ml -200 ml Intake Oral 240 ml 480 ml Output Urine Total 200 ml 775 ml 200 ml # Bowel Movements 1 Result Diagram: 04/30/17 0430 04/30/17 0430 Objective Remarks GENERAL: This is a well-nourished, well-developed patient, in no apparent distress. CARDIOVASCULAR: Normal rate and regular rhythm without murmurs, gallops, or rubs. RESPIRATORY: Good respiratory efforts. Markedly diminished breath sounds at the bases bilaterally. GASTROINTESTINAL: Abdomen soft, non-tender, non-distended. Normal active bowel sounds MUSCULOSKELETAL: Extremities without cyanosis, or edema. PSYCH: Appropriate mood and affect. Procedures 04/[address] excision biopsy 04/27- port placement A/P Problem List: (1) Acute pancreatitis ICD Code: K85.90 Status: Resolved (2) Transaminitis ICD Code: R74.0 Status: Acute (3) ALDO (acute kidney injury) ICD Code: N17.9 Status: Acute (4) Pleural effusion ICD Code: J90 Status: Acute Assessment and Plan 47 y/o male with no medical history presented to the ED with complaints of abdominal pain, nausea and vomiting. Patient states for the last 2 weeks he has not been able to keep anything down and he has been vomiting at least twice a day, with watery stools. B Cell Lymphoma -Oncology ff- - Status post port placement for chemotherapy. - chemotherapy starting today per Oncology. Acute pancreatitis,-clinically improving -Pain management with IV morphine -continue IVF -Advance diet as tolerated. - Zofran PRN. Phenergan IM prn - Dietitian following, lipase trended down. Bilateral pleural effusion: Appreciate pulmonology following. Ultrasound-guided thoracentesis ordered. Continue supportive care with supplemental oxygen. Incentive spirometer. Transaminitis,, history of alcohol abuse -AST/ALT downtrending -Continue to follow Acute kidney injury, creatinine 1.37 on admission, resolved with IV fluid. HTN- started on CCB- Procardia 90 mg XL clonidine 0.1 mg po q 6 prn prn Hydralazine DVT prophylaxis: SCDs-heparin. Problem Qualifiers (1) Acute pancreatitis: Qualified Code: K85.20 - Alcohol-induced acute pancreatitis, unspecified complication status Stevie Sheppard MD Apr 30, 2017 10:48
--- NOTE | 2017-04-30 12:12 | HHI.HCPN ---
Reason for visit a. To assist with evaluation and management of symptoms including: Debility. b. To assist medical decision maker(s) with: better understanding of current medical conditions; weighing benefits/burdens of medical treatment options; making medical treatment decisions. . (Demetrice Brody) Subjective/Interval History Mr. Werner is a 47-year-old male with no significant medical history who presented to the emergency room on 04/18/17 for evaluation of nausea, vomiting and diarrhea for the previous 2 weeks. Patient was admitted for further management of acute pancreatitis and dehydration. CT chest and abdomen revealing diffuse lymphadenopathy. Oncology consulted, lymph node pathology consistent with aggressive CD10 positive B-cell non-Hodgkin lymphoma. Palliative care was consulted for assistance with goals of care and to determine healthcare surrogate decision maker. Patient seen in his room. He was resting in bed in moderate distress secondary to increased work of breathing/dyspnea. Endorsing dyspnea at rest and minimal exertion, O2 via nasal cannula at [address] 04/26/17 showing bilateral pleural effusions, right slightly larger than the left. Pulmonology, Dr. Yen consulted on 04/29/17. Plan for thoracentesis of bilateral lungs, starting with right lung today. Patient scheduled to start chemotherapy for non-Hodgkin lymphoma today. Patient nauseous, reporting decreased oral intake. Last bowel movement this morning. Patient afebrile, hypertensive with SBP 140's-190's. Currently on O2 via nasal cannula 4 L, oxygen saturation in the mid to low 90s. Laboratory workup today revealing elevated LFTs, lipase trending down. Patient reports that he did not sleep well last night as he has been worried about his newly diagnosed lymphoma. Ongoing emotional support and active listening provided. . Family/friend interactions No family at bedside during my visit. . (Demetrice Brody) Advance Directives Living Will: Never completed Health Care Surrogate: Copy in medical record Durable Power of Special Services Coordinator: Never completed (Demetrice Brody) Advance Directive Specifics Date completed: 04/29/17. . Health Care Surrogate(s): HSC/mother Oxana Seals. Alternate surrogate -sister France Garcia. . Documented care wishes: No living will completed. . Significant change in goals: Full code. Patient electing to pursue aggressive management for newly diagnosed lymphoma. . (Demetrice Brody) Objective Vital Signs Date Time Temp Pulse Resp B/P Pulse Ox O2 Delivery O2 Flow Rate FiO2 04/30/17 09:00 92 Nasal Cannula 4.00 04/30/17 08:45 96.7 73 20 191/90 94 178/94 04/30/17 04:00 96.9 78 18 140/84 95 04/30/17 04:00 83 04/30/17 00:00 96.5 88 20 136/84 96 04/30/17 00:00 90 04/29/17 21:54 94 Nasal Cannula 4.00 04/29/17 20:00 92 04/29/17 20:00 96.4 84 20 140/82 92 04/29/17 19:56 Nasal Cannula 4.00 04/29/17 19:00 94 Nasal Cannula 4.00 04/29/17 18:30 90 Nasal Cannula 5.00 04/29/17 16:00 97.2 88 26 139/75 91 04/29/17 12:09 90 04/29/17 12:00 97.1 87 26 128/77 91 Intake & Output 04/30/17 04/30/17 07:00 19:00 Intake Total 480 ml Output Total 375 ml Balance 105 ml Intake Oral 480 ml Output Urine Total 375 ml # Bowel Movements 1 Physical Exam CONSTITUTIONAL/GENERAL: This is an adequately nourished male in moderate distress secondary to increased work of breathing.. TUBES/LINES/DRAINS: PIV, Mediport to right upper chest. Nasal cannula. SKIN: No jaundice, rashes, or lesions. Ecchymoses on upper extremities. No wounds seen anteriorly. Skin temperature appropriate. Not diaphoretic. HEAD: Atraumatic. Normocephalic. EYES: Pupils equal and round and reactive. Extraocular motions intact. No scleral icterus. No injection or drainage. ENT: Hearing grossly normal. Nose without bleeding or purulent drainage. Moist oral mucosa. Poor dentition. NECK: Trachea midline. Supple, nontender. CARDIOVASCULAR: Regular rate and rhythm without murmurs, gallops, or rubs. Peripheral pulses symmetric. RESPIRATORY/CHEST: Symmetric, increased work of breathing. Clear to auscultation. Breath sounds equal bilaterally. GASTROINTESTINAL: Abdomen soft, nondistended, mildly tender with palpation. No guarding. Bowel sounds present. GENITOURINARY: Without palpable bladder distension. MUSCULOSKELETAL: Extremities without clubbing, cyanosis, or edema. No mottling or clubbing. NEUROLOGICAL: Awake and alert. Motor and sensory grossly within normal limits. Follows commands. Cognitively sharp. Moves all extremities. PSYCHIATRIC: Anxious secondary to dyspnea. . (Demetrice Brody) Diagnostic Tests Laboratory Laboratory Tests Test 04/27/17 04/28/17 04/28/17 04/29/17 16:40 06:04 11:04 07:16 Bone Marrow Immunophenotyping White Blood Count 4.4 TH/MM3 4.2 TH/MM3 (4.0-11.0) (4.0-11.0) Red Blood Count 4.05 MIL/MM3 3.89 MIL/MM3 (4.50-5.90) (4.50-5.90) Hemoglobin 11.6 GM/DL 11.2 GM/DL (13.0-17.0) (13.0-17.0) Hematocrit 34.6 % 33.3 % (39.0-51.0) (39.0-51.0) Mean Corpuscular Volume 85.4 FL 85.8 FL (80.0-100.0) (80.0-100.0) Mean Corpuscular Hemoglobin 28.6 PG 28.8 PG (27.0-34.0) (27.0-34.0) Mean Corpuscular Hemoglobin 33.5 % 33.6 % Concent (32.0-36.0) (32.0-36.0) Red Cell Distribution Width 16.8 % 16.5 % (11.6-17.2) (11.6-17.2) Platelet Count 333 TH/MM3 270 TH/MM3 (150-450) (150-450) Mean Platelet Volume 7.2 FL 6.9 FL (7.0-11.0) (7.0-11.0) Neutrophils (%) (Auto) 78.1 % 76.9 % (16.0-70.0) (16.0-70.0) Lymphocytes (%) (Auto) 9.7 % 10.0 % (9.0-44.0) (9.0-44.0) Monocytes (%) (Auto) 11.3 % 12.3 % (0.0-8.0) (0.0-8.0) Eosinophils (%) (Auto) 0.1 % (0.0-4.0) 0.1 % (0.0-4.0) Basophils (%) (Auto) 0.8 % (0.0-2.0) 0.7 % (0.0-2.0) Neutrophils # (Auto) 3.4 TH/MM3 3.2 TH/MM3 (1.8-7.7) (1.8-7.7) Lymphocytes # (Auto) 0.4 TH/MM3 0.4 TH/MM3 (1.0-4.8) (1.0-4.8) Monocytes # (Auto) 0.5 TH/MM3 0.5 TH/MM3 (0-0.9) (0-0.9) Eosinophils # (Auto) 0.0 TH/MM3 0.0 TH/MM3 (0-0.4) (0-0.4) Basophils # (Auto) 0.0 TH/MM3 0.0 TH/MM3 (0-0.2) (0-0.2) CBC Comment DIFF FINAL DIFF FINAL Differential Comment Sodium Level 139 MEQ/L 140 MEQ/L (136-145) (136-145) Potassium Level 3.6 MEQ/L 4.2 MEQ/L (3.5-5.1) (3.5-5.1) Chloride Level 104 MEQ/L 104 MEQ/L (98-107) (98-107) Carbon Dioxide Level 23.1 MEQ/L 23.9 MEQ/L (21.0-32.0) (21.0-32.0) Anion Gap 12 MEQ/L (5-15) 12 MEQ/L (5-15) Blood Urea Nitrogen 6 MG/DL (7-18) 8 MG/DL (7-18) Creatinine 0.80 MG/DL 0.84 MG/DL (0.60-1.30) (0.60-1.30) Estimat Glomerular Filtration 125 ML/MIN 118 ML/MIN Rate (>89) (>89) Random Glucose 85 MG/DL 67 MG/DL (74-106) (74-106) Uric Acid 3.6 MG/DL 3.3 MG/DL (2.6-7.2) (2.6-7.2) Calcium Level 8.5 MG/DL 8.9 MG/DL (8.5-10.1) (8.5-10.1) Lactate Dehydrogenase 658 U/L 657 U/L (87-241) (87-241) Hepatitis A IgM Antibody NEGATIVE (NEGATIVE) Hepatitis B Surface Antigen NEGATIVE (NEGATIVE) Hepatitis B Core IgM Antibody NEGATIVE (NEGATIVE) Hepatitis C Antibody NEGATIVE (NEGATIVE) Total Bilirubin 1.4 MG/DL (0.2-1.0) Direct Bilirubin 0.9 MG/DL (0.0-0.2) Indirect Bilirubin 0.5 MG/DL (0.0-0.8) Aspartate Amino Transf 38 U/L (15-37) (AST/SGOT) Alanine Aminotransferase 24 U/L (12-78) (ALT/SGPT) Alkaline Phosphatase 200 U/L (45-117) Total Protein 6.4 GM/DL (6.4-8.2) Albumin 2.4 GM/DL (3.4-5.0) Test 04/30/17 04:30 White Blood Count 4.1 TH/MM3 (4.0-11.0) Red Blood Count 3.84 MIL/MM3 (4.50-5.90) Hemoglobin 11.2 GM/DL (13.0-17.0) Hematocrit 32.8 % (39.0-51.0) Mean Corpuscular Volume 85.5 FL (80.0-100.0) Mean Corpuscular Hemoglobin 29.2 PG (27.0-34.0) Mean Corpuscular Hemoglobin 34.1 % Concent (32.0-36.0) Red Cell Distribution Width 16.4 % (11.6-17.2) Platelet Count 274 TH/MM3 (150-450) Mean Platelet Volume 7.0 FL (7.0-11.0) Neutrophils (%) (Auto) 79.8 % (16.0-70.0) Lymphocytes (%) (Auto) 10.3 % (9.0-44.0) Monocytes (%) (Auto) 9.3 % (0.0-8.0) Eosinophils (%) (Auto) 0.0 % (0.0-4.0) Basophils (%) (Auto) 0.6 % (0.0-2.0) Neutrophils # (Auto) 3.3 TH/MM3 (1.8-7.7) Lymphocytes # (Auto) 0.4 TH/MM3 (1.0-4.8) Monocytes # (Auto) 0.4 TH/MM3 (0-0.9) Eosinophils # (Auto) 0.0 TH/MM3 (0-0.4) Basophils # (Auto) 0.0 TH/MM3 (0-0.2) CBC Comment DIFF FINAL Differential Comment Sodium Level 138 MEQ/L (136-145) Potassium Level 3.3 MEQ/L (3.5-5.1) Chloride Level 100 MEQ/L (98-107) Carbon Dioxide Level 25.4 MEQ/L (21.0-32.0) Anion Gap 13 MEQ/L (5-15) Blood Urea Nitrogen 7 MG/DL (7-18) Creatinine 0.72 MG/DL (0.60-1.30) Estimat Glomerular Filtration 141 ML/MIN Rate (>89) Random Glucose 72 MG/DL (74-106) Uric Acid 2.8 MG/DL (2.6-7.2) Calcium Level 8.4 MG/DL (8.5-10.1) Total Bilirubin 1.4 MG/DL (0.2-1.0) Direct Bilirubin 0.9 MG/DL (0.0-0.2) Indirect Bilirubin 0.5 MG/DL (0.0-0.8) Aspartate Amino Transf 41 U/L (15-37) (AST/SGOT) Alanine Aminotransferase 25 U/L (12-78) (ALT/SGPT) Alkaline Phosphatase 206 U/L (45-117) Lactate Dehydrogenase 667 U/L (87-241) Total Protein 6.4 GM/DL (6.4-8.2) Albumin 2.5 GM/DL (3.4-5.0) Lipase 535 U/L (73-393) (Demetrice Brody) Result Diagram: 04/30/1742904/30/17429 Procedures * 04/22/17 -axillary lymph node biopsy * 04/27/17 -bone marrow biopsy * 04/28/17 -MediPort placement . (Demetrice Brody) Assessment and Plan Disease Oriented Problem List: (1) Non-Hodgkin lymphoma (2) Acute pancreatitis (3) ALDO (acute kidney injury) Symptom Scale: (1) Nausea 0-10 Scale: 3 (2) Poor appetite 0-10 Scale: 5 (3) Debility 0-10 Scale: Unable to quantify (4) Shortness of breath 0-10 Scale: Unable to quantify Comment: Bilateral pleural effusions. Pertinent Non-Medical Issues Psychosocial: Single, unemployed. Has 8 children. Highest level of education is eighth grade. No service. Spiritual: No synagogue affiliations. Legal: Designation of healthcare surrogate completed. Ethical issues impacting care: No ethical issues identified. Patient participating in medical decision-making. . Important Contacts HCS/mother Nu Seals . Alt [facility]/sister France Garcia . . Prognosis Mr. Werner is a 47-year-old male with no significant medical history who presented to the emergency room on 04/18/17 for evaluation of nausea, vomiting and diarrhea for the previous 2 weeks. Lymph node pathology consistent with aggressive CD10 positive B-cell non-Hodgkin lymphoma. Bone marrow biopsy and HIV testing results still pending. Pending results of additional testing for prognostication at this time. Patient to start chemotherapy. . Code Status: Full Code Plan * CODE STATUS: FULL code. * HEALTHCARE DECISION-MAKING: Patient participating in medical decision-making. Has been evaluated by psychiatry for capacity. Patient appears to have a fair understanding of his illness and the ability to weight benefits and burdens of treatment options. As per psych, his lack of appreciation is most likely secondary to low level of education. Designation of healthcare surrogate completed, patient designated his mother Oxana Seals as HCS and alt [facility] sister France Garcia. * GOALS OF CARE: Patient electing to pursue aggressive management for newly diagnosed lymphoma. He verbalized feeling motivated to continue with current medical treatment to include chemotherapy and to follow medical recommendations. * SYMPTOMS: = Shortness of breath, secondary to bilateral pleural effusions. Currently on O2 via nasal cannula at 4 L. Pulmonology following. Scheduled thoracentesis of right lung today. =Nausea, likely secondary to acute pancreatitis. Phenergan available as needed. = Poor appetite, worsening for the past 2 weeks. Exacerbated by nausea. = Debility, secondary to burden of disease, acute illness. = Constipation: MOM, Senokot, lactulose and Dulcolax suppository available as needed. * Palliative care contact information has been provided to patient and family. * Palliative care will continue to follow-up as needed for further clarifications of goals of care, provide emotional support as patient's clinical course continues to evolve. . (Demetrice Brody) Time Spent Total Floor Time (mins): 28 (Total time to include review of medical records, physical exam, conversation with patient.) >50% Counseling/Coord of Care: Yes (Demetrice Brody) Attestation To help prompt me to consider important information that might be impacting today's encounter and assessment, information from prior notes written by myself or my colleagues may have been "brought forward" into today's note. My signature on this note, however, is an attestation that I personally performed the exam, history, and/or decision-making noted today, and, unless otherwise indicated, the interactions with patient, family, and staff as well as the review of records all occurred today. I also attest that the listed assessment and stated plan reflect my best clinical judgment today based on the combination of historical information, prior notes, and today's exam/ interactions. When time spent is documented, it refers only to time spent today by the signer, or if indicated, combined time spent today by collaborating physician/nurse practitioner. (Demetrice Brody) Collaborating MD Comments Chart reviewed. Case discussed with palliative care PRICE ACCURACY SUPERVISOR. Above note reviewed and I concur. . (Brady Mcghee MD) Demetrice Brody Apr 30, 2017 12:11 Brady Mcghee MD Jul 19, 2017 10:27
[2017-04-30] MEDS ORDERED: predniSONE 10 MG TAB PO SCH (13:00)
[2017-04-30] MEDS ORDERED: diphenhydrAMINE HCL 50 MG CAP PO ONE (13:00)
[2017-04-30] MEDS ORDERED: ACETAMINOPHEN 325 MG TAB PO ONE (13:00)
[2017-04-30] MEDS ORDERED: RITUXIMAB IV ONE (14:00)
[2017-04-30] MEDS ORDERED: SODIUM CHLORID 0.9% IV ONE (14:00)
--- NOTE | 2017-04-30 14:06 | RADRPT ---
EXAM DATE/TIME: 04/30/2017 13:12 [facility] COMPARISON: Prior CT scan 04/26/17, use for comparison. INDICATIONS : Status post thoracentesis, pleural effusion. MEDICAL HISTORY : None. SURGICAL HISTORY : Infusaport. ENCOUNTER: Subsequent ACUITY: 1 day PAIN SCORE: 0/10 LOCATION: Left chest FINDINGS: A single view of the chest demonstrates there is a very tiny amount of pleural air in the right later al costophrenic angle. Small pleural effusion remains. The majority of the right lung is unremarkab le. There is extensive mediastinal adenopathy. There is a moderate sized left pleural effusion. Th ere is no left-sided pneumothorax. Infusaport catheter is in good position on the right side. CONCLUSION: Tiny amount of pleural air in the lower right lateral costophrenic air. Small bilateral pleural effu sions left greater than right. Rinku Hillman MD on April 30, 2017 at 13:57 Board Certified Radiologist. This report was verified electronically.
[2017-04-30 14:20] LABS: TOTAL PROTEIN,PLEURAL FLUID 3.1 GM/DL
[2017-04-30 14:29] LABS: PLEURAL FLUID LYMPHS 92 %
[2017-04-30] MEDS ORDERED: DOXORUBICIN IV SCH (15:00)
[2017-04-30] MEDS ORDERED: VINCRISTINE IV SCH (15:00)
[2017-04-30] MEDS ORDERED: DEXAMETHASONE INJ 20 MG, GRANISETRON INJ 1 MG in SODIUM CHLORIDE 0.9% INJ 50 ML IV SCH (15:00)
[2017-04-30] MEDS ORDERED: ETOPOSIDE IV SCH (15:00)
[2017-04-30] MEDS ORDERED: [UNRECOGNIZED DRUG - OTHER] IV SCH (15:00)
--- NOTE | 2017-04-30 15:30 | RADRPT ---
EXAM DATE/TIME: 04/30/2017 15:23 [facility] COMPARISON: Prior study earlier in the day used for comparison. INDICATIONS : Thoracentesis. MEDICAL HISTORY : None. SURGICAL HISTORY : None. ENCOUNTER: Initial ACUITY: 1 day PAIN SCORE: 0/10 LOCATION: Right chest. FINDINGS: Single view of the chest demonstrates there is some new air-space disease in the right lung base possible reexpansion pulmonary edema. There is a tiny amount of residual pleural air just over the right hemidiaphragm. There is no evidence of an apical pneumothorax. Right-sided Infuse-a- Port catheter is in good position. There is a small left pleural effusion. There is persistent widening of the mediastinum consistent with lymphadenopathy. CONCLUSION: New air-space disease right lung base with possible reexpansion pulmonary edema. Min imal residual pleural air overlies right hemidiaphragm. [place] is well ventilated. Otherwise stable e xam. Rinku Hillman MD on April 30, 2017 at 15:25 Board Certified Radiologist. This report was verified electronically.
--- NOTE | 2017-04-30 16:04 | RADRPT ---
EXAM DATE/TIME: 04/30/2017 12:14 [facility] COMPARISON: No previous studies available for comparison. INDICATIONS : Right pleural effusion. MEDICAL HISTORY : Nausea. Depression. Pleural effusion. SURGICAL HISTORY : No previous surgical history. ENCOUNTER: Initial ACUITY: 3 days PAIN SCORE: 0/10 LOCATION: Right chest FLUID: Total volume of 1700 cc of clear, yellow fluid was removed. Fluid was sent to lab for ordered studies. TECHNIQUE: 1. Ultrasound guidance for thoracentesis. 2. Thoracentesis. The risks, benefits, and alternatives to ultrasound guided thoracentesis were explained to the patien t in lay simple terms, including the risk of bleeding and infection. Written and verbal informed con sent was obtained. Appropriate area for thoracentesis was marked under ultrasound guidance with the patient in the uprig ht position. Overlying skin was prepped and draped in the usual sterile fashion and with local anest hetic, a dermatotomy was made with an 11 blade scalpel. A 6 Icelandic thoracentesis catheter was placed in the pleural space and fluid was removed. Catheter was then removed and a sterile dressing applie d. There were no immediate complications. The patient tolerated the procedure well and the left the ultrasound suite in stable condition. Chest radiograph is to be obtained. CONCLUSION: Uncomplicated ultrasound guided thoracentesis. Tray Patel MD on April 30, 2017 at 16:02 Board Certified Radiologist. This report was verified electronically.
--- NOTE | 2017-04-30 16:39 | RADRPT ---
EXAM DATE/TIME: 04/30/2017 12:25 [facility] COMPARISON: No previous studies available for comparison. INDICATIONS : Left arm swelling. MEDICAL HISTORY : Left arm swelling. Nausea. Depression. Pleural effusion. SURGICAL HISTORY : Thoracentesis. ENCOUNTER: Initial ACUITY: 1 day PAIN SCORE: 1/10 LOCATION: Left arm. FINDINGS: There is spontaneous flow documented in the brachial, basilic, axillary, and subclavian veins. There is superficial thrombus within the forearm. There is significant soft tissue edema. There is a large fluid collection left axilla likely seroma or related to a large pleural effusion measuring 5.2 x 10. 0 x 2.9 cm. The vessels are compressible and augmentation response is documented. No filling defects are seen. The flow is phasic with respiration. Direction of flow in the jugular vein is caudal. CONCLUSION: There some superficial thrombosis of a vein in the forearm. The deep venous system is patent. Large fluid collection left axilla. Significant soft tissue edema throughout the upper arm. Rinku Hillman MD on April 30, 2017 at 16:35 Board Certified Radiologist. This report was verified electronically.
[2017-04-30] MEDS: ACETAMINOPHEN/HYDROcodone 325 MG/5 MG TAB PO PRN ×2 (16:44→23:12)
[2017-04-30] MEDS ORDERED: RESP: ALBUTEROL 2.5 MG/IPRATROPIUM 0.5 MG NEB (SCH) NEB ONE (19:45)
--- NOTE | 2017-04-30 20:04 | RADRPT ---
EXAM DATE/TIME: 04/30/2017 19:38 [facility] COMPARISON: CT THORAX W/O CONTRAST, April 26, 2017, 19:00. CHEST SINGLE AP, April 18, 2017, 21:18. INDICATIONS : Respiratory disease MEDICAL HISTORY : None. SURGICAL HISTORY : Infusaport ENCOUNTER: Subsequent ACUITY: 1 day PAIN SCORE: 0/10 LOCATION: chest FINDINGS: Right port catheter tip overlies the SVC. There is consolidation of both lung bases and cardiomegaly is noted. AP window and right paratracheal adenopathy and subcarinal adenopathy noted with mild splay ing of the mari. Bilateral effusions. CONCLUSION: Bilateral consolidation and effusions noted. Mediastinal adenopathy. Luis Hackett MD on April 30, 2017 at 20:02 Board Certified Radiologist. This report was verified electronically.
[2017-04-30] MEDS ORDERED: RESP: ALBUTEROL 2.5 MG/IPRATROPIUM 0.5 MG NEB (PRN) NEB (20:45)
[2017-04-30] MEDS: ONDANSETRON HCL 4 MG/2 ML VIAL IV PUSH PRN (22:17)
[2017-04-30] MEDS ORDERED: MORPHINE SULFATE 4 MG/ML INJ IV PUSH ONE (23:30)
[2017-05-01] VITALS (13 sets, daily range): BP systolic 128–172; BP diastolic 87–107; PULSE 92–111; RESP 17–26; TEMP 96.8–97.7; O2SAT 91–98
[2017-05-01 00:45] LABS: BLOOD GAS BASE EXCESS -3.5 mmol/L (-2-2); BLOOD GAS CARBOXYHEMOGLOBIN 0.9 % (0-4); BLOOD GAS HCO3 20 mmol/L (22-26); BLOOD GAS METHEMOGLOBIN 0.9 % (0-2); BLOOD GAS O2 HGB SATURATION 91 % (90-100); BLOOD GAS OXYGEN CONTENT 19.4 Vol % (12.0-20.0); BLOOD GAS PCO2 28 mmHg (38-42); BLOOD GAS PO2 68 mmHg (61-120); BLOOD GAS TOTAL HGB 15.3 G/DL (12.0-16.0); TEMP CORR TO 98.6
[2017-05-01 00:46] LABS: CRITICAL VALUE YES; DRAW SITE LT RADIAL; LITER FLOW 15 L/M; NUMBER OF ARTERIAL PUNCTURES 1; OXYGEN DEVICE PRB; STAT YES; ULNAR PULSE Y
[2017-05-01] MEDS: HEPARIN SODIUM - SQ 10,000 UNITS/ML VIAL SQ SCH ×3 (04:43→21:13)
[2017-05-01] MEDS: ACETAMINOPHEN/HYDROcodone 325 MG/5 MG TAB PO PRN (05:15)
[2017-05-01 06:55] LABS: BASOPHIL % 0.3 % (0.0-2.0); HEMO FLAGS DIFF FINAL; LYMPH % 3.7 % (9.0-44.0); LYMPHOCYTE # 0.3 TH/MM3 (1.0-4.8); MEAN CORPUSCULAR HEMOGLOBIN 29.1 PG (27.0-34.0); MEAN CORPUSCULAR HGB CONC 34.2 % (32.0-36.0); MONO % 6.2 % (0.0-8.0); NEUT % 89.8 % (16.0-70.0); PLATELET COUNT 312 TH/MM3 (150-450); RED BLOOD COUNT 4.47 MIL/MM3 (4.50-5.90); RED CELL DISTRIBUTION WIDTH 16.7 % (11.6-17.2); WHITE BLOOD COUNT 8.9 TH/MM3 (4.0-11.0)
--- NOTE | 2017-05-01 07:08 | RADRPT ---
EXAM DATE/TIME: 05/01/2017 06:23 [facility] COMPARISON: CHEST SINGLE AP, April 30, 2017, 19:38. CHEST EXPIRATION ONLY, April 30, 2017, 13:12. CHEST EXPIRATIO N ONLY, April 30, 2017, 15:23. INDICATIONS : Short of breath, follow up right thoracentesis, evaluate for pneumothorax MEDICAL HISTORY : lymphadenopathy, pneumothorax SURGICAL HISTORY : infusaport ENCOUNTER: Subsequent ACUITY: 1 week PAIN SCORE: 6/10 LOCATION: Bilateral chest FINDINGS: Increasing opacity is identified in both lung bases. There is increasing airspace disease as well as enlarging bilateral effusions. Interstitial vascular markings are becoming more prominent. There is n o evidence of pneumothorax. Cardiomediastinal structures are stable. Paratracheal soft tissue fullness in the superior mediastinum is again noted. Heart remains normal in size. CONCLUSION: Increasing basilar airspace disease, interstitial vascular congestion and bilateral effusions. No evidence of pneumothorax. Otherwise stable chest. Aryan Irby MD on May 01, 2017 at 7:03 Board Certified Radiologist. This report was verified electronically.
[2017-05-01 07:13] LABS: URIC ACID 3.4 MG/DL (2.6-7.2)
[2017-05-01] MEDS ORDERED: FUROSEMIDE 20 MG/2 ML VIAL IV PUSH ONE ×3 (07:45→15:30)
[2017-05-01] MEDS: NIFEdipine 90 MG SUSTAINED RELEASE TAB PO SCH (09:00)
[2017-05-01] MEDS: ALLOPURINOL 300 MG TAB PO SCH (09:09)
[2017-05-01] MEDS: DOCUSATE SODIUM 50 MG/SENNA 8.6 MG TAB PO SCH ×2 (09:09→21:16)
--- NOTE | 2017-05-01 10:17 | HHI.PR ---
Subjective Remarks Patient reports having a hard time with breathing overnight but this morning is much better. He is currently on room air. No chest pain. Still no appetite. He experiences nausea and vomiting after eating anything with consistency. He can tolerate fluid. Objective Vitals Vital Signs Date Time Temp Pulse Resp B/P Pulse Ox O2 Delivery O2 Flow Rate FiO2 05/01/17 05:00 92 Simple Mask 10.00 05/01/17 04:00 97.6 92 17 144/96 94 05/01/17 04:00 105 05/01/17 01:25 97.7 110 18 128/87 98 05/01/17 00:00 98 Non-Rebreather 6.00 05/01/17 00:00 110 04/30/17 22:00 93 Simple Mask 10.00 04/30/17 20:16 92 Simple Mask 10.00 04/30/17 20:00 97.6 99 18 119/76 92 04/30/17 20:00 106 04/30/17 18:39 97.5 103 24 123/77 93 04/30/17 18:30 93 Simple Mask 10.00 04/30/17 18:29 93 Simple Mask 10.00 04/30/17 16:50 103 04/30/17 16:45 86 Nasal Cannula 4.00 04/30/17 16:45 96.8 108 22 137/71 04/30/17 16:04 86 20 146/83 92 04/30/17 14:40 88 20 144/85 92 04/30/17 13:55 92 20 141/83 93 04/30/17 13:40 96.8 92 20 136/84 92 04/30/17 12:00 97.0 82 22 167/95 93 04/30/17 12:00 Room Air 4.00 04/30/17 10:58 98 I/O 04/30/17 04/30/17 04/30/17 05/01/17 05/01/17 05/01/17 06:59 14:59 22:59 06:59 14:59 22:59 Output Total 200 ml 300 ml Balance -200 ml -300 ml Output Urine Total 200 ml 300 ml Result Diagram: 05/01/17 0450 04/30/17 2540 Objective Remarks GENERAL: This is a well-nourished, well-developed patient, in no apparent distress. CARDIOVASCULAR: Normal rate and regular rhythm without murmurs, gallops, or rubs. RESPIRATORY: Good respiratory efforts. Markedly diminished breath sounds at the bases bilaterally. GASTROINTESTINAL: Abdomen soft, non-tender, non-distended. Normal active bowel sounds MUSCULOSKELETAL: Extremities without cyanosis, or edema. PSYCH: Appropriate mood and affect. Procedures 04/[address] excision biopsy 04/27- port placement A/P Problem List: (1) Acute pancreatitis ICD Code: K85.90 Status: Resolved (2) Transaminitis ICD Code: R74.0 Status: Acute (3) ALDO (acute kidney injury) ICD Code: N17.9 Status: Acute (4) Pleural effusion ICD Code: J90 Status: Acute Assessment and Plan 47 y/o male with no medical history presented to the ED with complaints of abdominal pain, nausea and vomiting. Patient states for the last 2 weeks he has not been able to keep anything down and he has been vomiting at least twice a day, with watery stools. B Cell Lymphoma -Oncology ff- - Status post port placement for chemotherapy. -On chemotherapy per Oncology. Acute pancreatitis,-clinically improving -Pain management with IV morphine -continue IVF -Advance diet as tolerated. - Zofran PRN. Phenergan IM prn - Dietitian following, lipase trended down. Nausea and vomiting: Unsure if related to lymphoma. Add Reglan. If no improvement, consider GI consult. - Add PPI since patient is on high-dose steroids Bilateral pleural effusion: Appreciate pulmonology following. Status post ultrasound-guided thoracentesis. 1.7 L removed. Continue supportive care with supplemental oxygen. Incentive spirometer. Transaminitis,, history of alcohol abuse -AST/ALT downtrending -Continue to follow Acute kidney injury, creatinine 1.37 on admission, resolved with IV fluid. HTN- started on CCB- Procardia 90 mg XL clonidine 0.1 mg po q 6 prn prn Hydralazine DVT prophylaxis: SCDs-heparin. Problem Qualifiers (1) Acute pancreatitis: Qualified Code: K85.20 - Alcohol-induced acute pancreatitis, unspecified complication status Stevie Sheppard MD May 01, 2017 10:17
[2017-05-01] MEDS ORDERED: ACETAMINOPHEN 325 MG TAB PO ONE ×2 (10:45→11:30)
[2017-05-01] MEDS ORDERED: diphenhydrAMINE HCL 50 MG CAP PO ONE ×2 (10:45→11:30)
[2017-05-01] MEDS: DEXAMETHASONE INJ 20 MG, GRANISETRON INJ 1 MG in SODIUM CHLORIDE 0.9% INJ 50 ML IV SCH (11:30)
[2017-05-01] MEDS ORDERED: RITUXIMAB IV ONE (12:00)
[2017-05-01] MEDS ORDERED: SODIUM CHLORID 0.9% IV ONE (12:00)
--- NOTE | 2017-05-01 12:13 | PD.ONC.PN ---
Subjective Subjective Remarks Afebrile overnight. Patient very fatigued. States he feels like he is breathing better today. Says he feels ready to start chemotherapy. Objective Data Date Time Temp Pulse Resp B/P Pulse Ox O2 Delivery O2 Flow Rate FiO2 05/01/17 08:00 96.8 109 26 140/96 92 05/01/17 05:00 92 Simple Mask 10.00 05/01/17 04:00 97.6 92 17 144/96 94 05/01/17 04:00 105 05/01/17 01:25 97.7 110 18 128/87 98 05/01/17 00:00 98 Non-Rebreather 6.00 05/01/17 00:00 110 04/30/17 22:00 93 Simple Mask 10.00 04/30/17 20:16 92 Simple Mask 10.00 04/30/17 20:00 97.6 99 18 119/76 92 04/30/17 20:00 106 04/30/17 18:39 97.5 103 24 123/77 93 04/30/17 18:30 93 Simple Mask 10.00 04/30/17 18:29 93 Simple Mask 10.00 04/30/17 16:50 103 04/30/17 16:45 86 Nasal Cannula 4.00 04/30/17 16:45 96.8 108 22 137/71 04/30/17 16:04 86 20 146/83 92 04/30/17 14:40 88 20 144/85 92 04/30/17 13:55 92 20 141/83 93 04/30/17 13:40 96.8 92 20 136/84 92 05/01/17 05/01/17 05/01/17 06:59 14:59 22:59 Output Total 300 ml Balance -300 ml Result Diagram: 05/01/17 0450 04/30/17 0430 Laboratory Results Laboratory Tests Test 04/30/17 05/01/17 05/01/17 12:55 00:29 04:50 Pleural Fluid WBC 830 /MM3 Pleural Fluid RBC 647 /MM3 Pleural Fluid Neutrophils 8 % Pleural Fluid Lymphocytes 92 % Pleural Fluid Other Cells % Pleural Fluid Total Protein 3.1 GM/DL Pleural Fluid LDH 610 U/L Pleural Fluid Glucose 67 MG/DL Pleural Fluid Cholesterol 73 MG/DL Blood Gas Puncture Site LT RADIAL Blood Gas Patient Temperature 98.6 Blood Gas HCO3 20 mmol/L Blood Gas Base Excess -3.5 mmol/L Blood Gas Oxygen Saturation 91 % Arterial Blood pH 7.46 Arterial Blood Partial 28 mmHg Pressure CO2 Arterial Blood Partial 68 mmHg Pressure O2 Arterial Blood Oxygen Content 19.4 Vol % Arterial Blood 0.9 % Carboxyhemoglobin Arterial Blood Methemoglobin 0.9 % Blood Gas Hemoglobin 15.3 G/DL Oxygen Delivery Device PRB Blood Gas Liter Flow 15 L/M White Blood Count 8.9 TH/MM3 Red Blood Count 4.47 MIL/MM3 Hemoglobin 13.0 GM/DL Hematocrit 38.0 % Mean Corpuscular Volume 85.0 FL Mean Corpuscular Hemoglobin 29.1 PG Mean Corpuscular Hemoglobin 34.2 % Concent Red Cell Distribution Width 16.7 % Platelet Count 312 TH/MM3 Mean Platelet Volume 8.0 FL Neutrophils (%) (Auto) 89.8 % Lymphocytes (%) (Auto) 3.7 % Monocytes (%) (Auto) 6.2 % Eosinophils (%) (Auto) 0.0 % Basophils (%) (Auto) 0.3 % Neutrophils # (Auto) 8.0 TH/MM3 Lymphocytes # (Auto) 0.3 TH/MM3 Monocytes # (Auto) 0.6 TH/MM3 Eosinophils # (Auto) 0.0 TH/MM3 Basophils # (Auto) 0.0 TH/MM3 CBC Comment DIFF FINAL Differential Comment Uric Acid 3.4 MG/DL Lactate Dehydrogenase 626 U/L Culture Results Microbiology Date/Time Procedure Status Source Growth 04/30/17 12:55 Gram Stain - Final Resulted Fluid Pleural Fluid 04/30/17 12:55 Body Fluid Culture - Preliminary Resulted Fluid Pleural Fluid NO GROWTH IN 24 HOURS. 04/30/17 12:55 Acid Fast Stain Received Fluid Pleural Fluid Pending 04/30/17 12:55 Mycobacterial Culture Received Fluid Pleural Fluid Pending 04/30/17 12:55 Fungal Smear - Final Resulted Fluid Pleural Fluid NO FUNGAL ELEMENTS SEEN. 04/30/17 12:55 Fungal Culture Resulted Fluid Pleural Fluid Pending Imaging Studies Last 24 hours Impressions Chest X-Ray 05/01/17 0600 Signed Impressions: Service Date/Time: Monday, May 01, 2017 06:23 - CONCLUSION: Increasing basilar airspace disease, interstitial vascular congestion and bilateral effusions. No evidence of pneumothorax. Otherwise stable chest. Aryan Irby MD Chest X-Ray 04/30/17 1452 Signed Impressions: Service Date/Time: April 15:23 - CONCLUSION: New air-space disease right lung base with possible reexpansion pulmonary edema. Minimal residual pleural air overlies right hemidiaphragm. [place] is well ventilated. Otherwise stable exam. Rinku Hillman MD Administered Medications Medications (Trade) Dose Ordered Sig/Shyla Route PRN Reason Start Time Stop Time Status Last Admin Dose Admin Sodium Chloride (NS Flush) 2 ml UNSCH PRN IV FLUSH FLUSH AFTER USING IV ACCESS 04/18/17 17:30 04/21/17 22:27 Senna/Docusate Sodium (Porsha-Colace) 1 tab BID PO 04/18/17 21:00 05/01/17 09:09 Heparin Sodium (Porcine) (Heparin Inj) 5,000 units Q8HR SQ 04/19/17 14:00 05/01/17 04:43 Hydralazine HCl (Apresoline Inj) 10 mg Q6HR PRN IV PUSH SBP>160, DBP>90 04/21/17 17:00 04/27/17 10:15 Allopurinol (Zyloprim) 300 mg DAILY PO 04/27/17 09:00 05/01/17 09:09 Nifedipine (Procardia Xl) 90 mg DAILY PO 04/28/17 09:00 04/30/17 09:00 Clonidine (Catapres) 0.1 mg Q6H PRN PO SBP>160, DBP>90 04/27/17 15:00 04/29/17 08:07 Ondansetron HCl (Zofran Inj) 4 mg Q6HR PRN IV PUSH NAUSEA OR VOMITING 04/30/17 11:30 04/30/17 22:17 Promethazine HCl (Phenergan Inj) 25 mg Q6H PRN IM NAUSEA OR VOMITING 04/30/17 11:30 04/30/17 11:52 Acetaminophen/ Hydrocodone Bitart (Mcdonough 5-325 Mg) 1 tab Q6H PRN PO PAIN SCALE 1 TO 10 04/30/17 11:30 05/01/17 05:15 Objective Remarks GENERAL: Fatigued male supine in bed watching TV SKIN: Warm and dry. large bandage along right back/chest wall, c/d/i. HEAD: Normocephalic. EYES: No injection or drainage. NECK: Supple, trachea midline. CARDIOVASCULAR: +S1/S2, tachy RESPIRATORY: anterior canas clear GASTROINTESTINAL: Abdomen soft, non-tender, nondistended. EXTREMITIES: No cyanosis. NEUROLOGICAL: No obvious focal deficit. Awake, alert, and oriented x3. Assessment/Plan Problem List: (1) Non-Hodgkin lymphoma Status: Acute Plan: 05/01: start Rituxan with slow infusion. 04/30: s/p right sided thoracentesis. --follicular with features of transformation to B-cell lymphoma --Triple hit + --port placed 04/28 --bone marrow biopsy 04/28, path pending --plan to give EPOCH+R once ECHO completed --on allopurinol 300mg PO daily --monitor LDH, uric acid --Hepatitis panel negative, ECHO showed normal EF (2) Pleural effusion Status: Acute Plan: --s/p right sided thoracentesis on 04/30 --cytology pending. (3) Acute pancreatitis Status: Resolved Plan: --Resolving --on IVF and pain management per primary team Assessment 47y/o male admitted with pancreatitis, oncology consulted for diffuse adenopathy. Plan 1. start Rituxan today, slowly. If he tolerates the Rituxan, will start EPOCH tomorrow. 2. Monitor for sign of tumor lysis syndrome 3. replace potassium as needed--awaiting chemistry today Attending Statement The exam, history, and the medical decision-making described in the above note were completed with the assistance of the mid-level provider. I reviewed and agree with the findings presented. I attest that I had a [id number] encounter with the patient on the same day, and personally performed and documented my assessment and findings in the medical record. Events noted. 1700ml fluid removed yesterday. Still on facemask. CXR showed vascular congestion. Pneumothorax has resolved. Will give him more diuretic. BUE edema due to bulky supraclav LN, US did not show DVT. 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 Will start Rituxan and start EPOCH if he tolerates well. Monitor closely for sign of tumor lysis syndrome. Problem Qualifiers (1) Non-Hodgkin lymphoma: (2) Acute pancreatitis: Qualified Code: K85.20 - Alcohol-induced acute pancreatitis, unspecified complication status Brenda Platt May 01, 2017 12:13 Ruslan Connelly MD May 01, 2017 14:45
[2017-05-01] MEDS: PROMETHAZINE INJ 25 MG/ML VIAL IM PRN (13:27)
[2017-05-01 14:00] LABS: ANION GAP 15 MEQ/L (5-15); AST (GOT) 42 U/L (15-37); BICARBONATE 20.8 MEQ/L (21.0-32.0); BLOOD UREA NITROGEN 16 MG/DL (7-18); CHLORIDE 101 MEQ/L (98-107); GLOMERULAR FILTRATION RATE 82 ML/MIN (>89); POTASSIUM 3.9 MEQ/L (3.5-5.1); SODIUM (NA) 137 MEQ/L (136-145)
[2017-05-01 14:01] LABS: ALT (GPT) 24 U/L (12-78)
[2017-05-01 14:07] LABS: ALKALINE PHOSPHATASE 170 U/L (45-117); TOTAL BILIRUBIN ADULT 1.3 MG/DL (0.2-1.0)
[2017-05-01 15:36] LABS: POTASSIUM 3.8 MEQ/L (3.5-5.1)
[2017-05-01 16:00] LABS: BICARBONATE 22.1 MEQ/L (21.0-32.0)
[2017-05-01] MEDS: PANTOPRAZOLE SOD 40 MG DELAYED RELEASE TAB PO SCH (16:14)
[2017-05-01] MEDS: METOCLOPRAMIDE HCL 10 MG/2 ML VIAL IV PUSH SCH ×2 (16:15→21:13)
[2017-05-01] MEDS ORDERED: RESP: ALBUTEROL 2.5 MG/IPRATROPIUM 0.5 MG NEB (SCH) INH (20:00)
[2017-05-02] VITALS (21 sets, daily range): BP systolic 87–151; BP diastolic 53–84; PULSE 90–126; RESP 14–44; TEMP 97.3–99.2; O2SAT 91–99
[2017-05-02] MEDS: HEPARIN SODIUM - SQ 10,000 UNITS/ML VIAL SQ SCH ×2 (05:18→12:46)
[2017-05-02] MEDS: METOCLOPRAMIDE HCL 10 MG/2 ML VIAL IV PUSH SCH ×3 (05:18→20:09)
[2017-05-02 07:14] LABS: AUTOMATED NEUTROPHIL # 7.3 TH/MM3 (1.8-7.7); BASOPHIL % 0.1 % (0.0-2.0); HEMATOCRIT 34.7 % (39.0-51.0); HEMO FLAGS DIFF FINAL; LYMPH % 3.4 % (9.0-44.0); LYMPHOCYTE # 0.3 TH/MM3 (1.0-4.8); MEAN CELL VOLUME 86.2 FL (80.0-100.0); MEAN CORPUSCULAR HEMOGLOBIN 29.8 PG (27.0-34.0); MEAN CORPUSCULAR HGB CONC 34.5 % (32.0-36.0); MONO % 4.1 % (0.0-8.0); NEUT % 92.4 % (16.0-70.0); PLATELET COUNT 265 TH/MM3 (150-450); RED BLOOD COUNT 4.03 MIL/MM3 (4.50-5.90); RED CELL DISTRIBUTION WIDTH 16.7 % (11.6-17.2); WHITE BLOOD COUNT 7.9 TH/MM3 (4.0-11.0)
[2017-05-02 07:37] LABS: BICARBONATE 20.8 MEQ/L (21.0-32.0); POTASSIUM 3.8 MEQ/L (3.5-5.1)
[2017-05-02] MEDS ORDERED: FUROSEMIDE 20 MG/2 ML VIAL IV PUSH ONE (08:30)
--- NOTE | 2017-05-02 08:39 | RADRPT ---
EXAM DATE/TIME: 05/02/2017 08:11 [facility] COMPARISON: CT THORAX W/O CONTRAST, April 26, 2017, 19:00. CHEST EXPIRATION ONLY, May 01, 2017, 6:23. INDICATIONS : Shortness of breath and congestion. MEDICAL HISTORY : None. SURGICAL HISTORY : Infusaport. ENCOUNTER: Subsequent ACUITY: 1 week PAIN SCORE: 0/10 LOCATION: Bilateral chest FINDINGS: There is no change in the right paratracheal mass discussed on the patient's prior chest CT. Left bas ilar opacity is present may be due to a combination of consolidation and or pleural effusion. Right l puneet base consolidation is present and there is mild improvement in the aeration of the right lung bas e since the prior exam. Right IJ [id number] is present with tip overlapping the expected region of the SVC.The rest of the examination has not significantly changed. CONCLUSION: There is mild improvement in aeration of the right lower lung, otherwise not significantly changed. Leonor Chavez MD on May 02, 2017 at 8:36 Board Certified Radiologist. This report was verified electronically.
[2017-05-02] MEDS: PANTOPRAZOLE SOD 40 MG DELAYED RELEASE TAB PO SCH (09:00)
[2017-05-02] MEDS: DOCUSATE SODIUM 50 MG/SENNA 8.6 MG TAB PO SCH ×2 (09:00→20:09)
[2017-05-02] MEDS: NIFEdipine 90 MG SUSTAINED RELEASE TAB PO SCH (09:00)
[2017-05-02] MEDS ORDERED: ETOMIDATE 20 MG/10 ML VIAL ONE (09:23)
--- NOTE | 2017-05-02 09:38 | HHI.PR ---
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 Patient transferred to ICU, [facility], he continues to get worse. Will transfer care to [facility]. Consult placed. Stevie Sheppard MD May 02, 2017 09:38
--- NOTE | 2017-05-02 09:53 | PD.CONS ---
[facility] Service Critical Care Medicine Consult Requested By Dr. Sheppard Reason for Consult acute hypoxia Primary Care Physician No Primary Care Physician History of Present Illness This is a 47yM who was originally admitted for acute pancreatitis and during this hospital admission found to have an acute aggressive non-hodgkin's lymphoma. he has had progressive shortness of breath secondary to bilateral pleural effusions and adenopathy. He rapid responsed today for worsening hypoxemia on a NRB and in severe respiratory distress. When I evaluated the patient on arrival to the C, he is in severe respiratory distress, unable to speak, RR > 40, spo2 92% on NRB, using accessory muscles. CXR without over fluid overload. additional information is unobtainable secondary to the clinical condition of the patient. Review of Systems ROS Limitations: Clinical Condition Past Family Social History Allergies: Coded Allergies: No Known Allergies (Unverified , 04/18/17) Past Medical History prior to this admission unremarkable. now with non-hodgkin's lymphoma and acute pancreatitis. Past Surgical History recent port placement this admission, otherwise unremarkable. Reported Medications unable to be obtained secondary to the clinical condition of the patient. Active Ordered Medications See MAR Family History unobtainable secondary to the clinical condition of the patient. Social History unobtainable secondary to the clinical condition of the patient. per chart review, +etoh, +tob, but quit 2 months ago. Physical Exam Vital Signs Vital Signs Date Time Temp Pulse Resp B/P Pulse Ox O2 Delivery O2 Flow Rate FiO2 05/02/17 08:40 92 Partial Non-Rebreather 15.00 05/02/17 08:00 97.3 111 22 133/84 91 05/02/17 07:47 92 Nasal Cannula 6.00 05/02/17 04:00 98.0 90 18 151/83 95 05/02/17 00:02 115 05/02/17 00:00 97.5 102 17 125/84 92 05/01/17 21:13 Simple Mask 10.00 05/01/17 20:18 91 Simple Mask 10.00 05/01/17 20:11 106 05/01/17 20:00 97.6 107 17 130/96 92 05/01/17 18:14 109 05/01/17 16:00 97.1 105 20 159/92 93 05/01/17 16:00 90 Nasal Cannula 3.00 05/01/17 13:54 97.2 107 22 134/94 05/01/17 13:00 92 Nasal Cannula 3.00 05/01/17 12:58 97.0 102 20 172/107 93 05/01/17 11:45 93 Nasal Cannula 3.00 Physical Exam on my evaluation, middle-aged male in severe respiratory distress. NRB in place , spo2 92%, RR >40, using accesory muslces to breath. bilateral breath sounds. no wheezes. port accessed with 2 steri-strips in place. cachectic appearing. scaphoid abdomen. nontender and no guarding. no peripheral edema. distal pulses 2+. Laboratory Laboratory Tests Test 05/01/17 05/02/17 14:30 05:23 Sodium Level 137 138 Potassium Level 3.8 3.8 Chloride Level 101 102 Carbon Dioxide Level 22.1 20.8 Anion Gap 14 15 Blood Urea Nitrogen 17 16 Creatinine 1.32 1.29 Estimat Glomerular Filtration 70 72 Rate Random Glucose 98 64 Calcium Level 8.7 8.1 White Blood Count 7.9 Red Blood Count 4.03 Hemoglobin 12.0 Hematocrit 34.7 Mean Corpuscular Volume 86.2 Mean Corpuscular Hemoglobin 29.8 Mean Corpuscular Hemoglobin 34.5 Concent Red Cell Distribution Width 16.7 Platelet Count 265 Mean Platelet Volume 8.1 Neutrophils (%) (Auto) 92.4 Lymphocytes (%) (Auto) 3.4 Monocytes (%) (Auto) 4.1 Eosinophils (%) (Auto) 0.0 Basophils (%) (Auto) 0.1 Neutrophils # (Auto) 7.3 Lymphocytes # (Auto) 0.3 Monocytes # (Auto) 0.3 Eosinophils # (Auto) 0.0 Basophils # (Auto) 0.0 CBC Comment DIFF FINAL Differential Comment Uric Acid 4.5 Phosphorus Level 3.8 Lactate Dehydrogenase 717 Date/Time Procedure Status Source Growth 04/30/17 12:55 Gram Stain - Final Resulted Fluid Pleural Fluid 04/30/17 12:55 Body Fluid Culture - Preliminary Resulted Fluid Pleural Fluid NO GROWTH IN 24 HOURS. 04/30/17 12:55 Fungal Smear - Final Resulted Fluid Pleural Fluid NO FUNGAL ELEMENTS SEEN. 04/30/17 12:55 Fungal Culture Resulted Fluid Pleural Fluid Pending 04/30/17 12:55 Acid Fast Stain - Final Resulted Fluid Pleural Fluid NO ACID FAST BACILLI SEEN 04/30/17 12:55 Mycobacterial Culture Resulted Fluid Pleural Fluid Pending Result Diagram: 05/02/17 0523 05/02/17 0523 Imaging Last Impressions Chest X-Ray 05/02/17 0000 Signed Impressions: Service Date/Time: Tuesday, May 02, 2017 08:11 - CONCLUSION: There is mild improvement in aeration of the right lower lung, otherwise not significantly changed. Leonor Chavez MD Upper Extremity Ultrasound 04/30/17 0000 Signed Impressions: Service Date/Time: April 12:25 - CONCLUSION: There some superficial thrombosis of a vein in the forearm. The deep venous system is patent. Large fluid collection left axilla. Significant soft tissue edema throughout the upper arm. Rinku Hillman MD Thoracentesis Ultrasound 04/30/17 0000 Signed Impressions: Service Date/Time: April 12:14 - CONCLUSION: Uncomplicated ultrasound guided thoracentesis. Tray Patel MD Port Line Insertion 04/27/17 0000 Signed Impressions: Service Date/Time: Thursday, April 27, 2017 14:56 - CONCLUSION: 1. Bulky bilateral lower cervical lymphadenopathy. 2. Uncomplicated ultrasound and fluoroscopic guided implanted central venous port catheter placement as described in detail above. An 8 [employer] port was placed. Liang Peralta MD Bone Biopsy CT 04/27/17 0000 Signed Impressions: Service Date/Time: Thursday, April 27, 2017 16:22 - CONCLUSION: 1. Uncomplicated CT guided bone marrow aspirate. 2. Uncomplicated CT guided bone marrow biopsy. Tray Patel MD Chest CT 04/25/17 0000 Signed Impressions: Service Date/Time: Wednesday, April 26, 2017 19:00 - CONCLUSION: The right pleural effusion is slightly larger on the left side has not changed. Extensive bulky adenopathy as before and malignancies such as lymphoma is suspected. Leonor Chavez MD Gall Bladder Ultrasound 04/22/17 0000 Signed Impressions: Service Date/Time: Saturday, April 22, 2017 07:35 - CONCLUSION: Small liver with focal abdomen only incompletely evaluated. Large right pleural effusion. effusion. Kirk Briceño MD FACR Abdomen CT 04/20/17 0000 Signed Impressions: Service Date/Time: Thursday, April 20, 2017 19:40 - CONCLUSION: Limited exam because of lack of intravenous contrast. Lymphoma is suspected. Pathological diagnosis could be obtained with ultrasound biopsy of the cervical, axillary or inguinal adenopathy. Kirk Briceño MD FACR Assessment and Plan Assessment and Plan Assessment: 47yM with acute hypoxic respiratory failure and acute pancreatitis. will proceed with intubation, see separate procedure note for details. will order CT pulmonary angiogram to rule out embolism as a contributing cause of hypoxia. likely multifactorial including recurrent pleural effusions and adenopathy. likely overall prognosis poor. very critically ill. Active Problems: Acute Hypoxic Respiratory Failure Acute pancreatitis Plan: -- intubate -- vent bundle, hob at 30 degrees, nebs -- prop, fent for sedation -- may require vasopressors for map > 65 mmHg given critical illness and sedation -- ct pulmonary angiogram -- may require repeat drainage of effusions to help with hypoxia. Critical care time: 44 minutes, exclusive of separately billable procedures. Code Status Full Code Andrés Burton MD May 02, 2017 09:53
--- NOTE | 2017-05-02 09:59 | PD.PROCEDR ---
Procedure Note Procedure Endotracheal Intubation Diagnosis: Acute hypoxic respiratory failure Indications: Acute hypoxic respiratory failure Consent: Consent is deemed emergent or medically necessary Anesthesia: etomidate 20 g IV, Rocuronium 50 mg IV Description of the Procedure: The patient has significantly poor dentition. There is a lower incisor that is very loose as well as a upper right bicuspid that is very loose. Care was taken to avoid injury to the patient's significantly poor dentition, and at the conclusion of procedure the patient had no change or injury to his dentition. The patient was positioned in the sniffing position. Pre-oxygenation was performed using a bag valve mask. Anesthesia was induced via rapid sequence. A [place] #2 was used for laryngoscopy and a Grade I view was obtained. A 8.5 cuffed endotracheal tube was inserted atraumatically through the vocal cords. Confirmation of correct endotracheal tube placement was made by equal and bilateral breath sounds and colorimetric CO2 detection. The endotracheal tube was secured at 23 cm at the teeth. There were no immediate complications noted. The patient remained hemodynamically stable throughout the procedure. A chest x-ray has been ordered. I personally performed the procedure. Andrés Burton MD May 02, 2017 09:59
[2017-05-02] MEDS ORDERED: RESP: ALBUTEROL 2.5 MG/IPRATROPIUM 0.5 MG NEB (PRN) INH (10:00)
[2017-05-02] MEDS: RESP: ALBUTEROL 2.5 MG/IPRATROPIUM 0.5 MG NEB (SCH) INH ×3 (10:00→20:37)
[2017-05-02] MEDS ORDERED: MAGNESIUM OXIDE 400 MG TAB PO PRN (10:00)
[2017-05-02] MEDS ORDERED: POTASSIUM CHLOR 40 MEQ PREMIX 100 ML IV PRN ×2 (10:00)
[2017-05-02] MEDS ORDERED: POTASSIUM PHOSPHATE MONOBASIC 500 MG TAB PO PRN (10:00)
[2017-05-02] MEDS ORDERED: MAGNESIUM SULFATE INJ 4 GM in SODIUM CHLORIDE 0.9% INJ 92 ML IV PRN (10:00)
[2017-05-02] MEDS ORDERED: SODIUM PHOSPHATE INJ 30 MMOL in SODIUM CHLOR 0.9% 250 ML INJ 240 ML IV PRN (10:00)
[2017-05-02] MEDS ORDERED: POTASSIUM CHLOR 20 MEQ PREMIX 100 ML IV PRN ×2 (10:00)
[2017-05-02] MEDS ORDERED: MAGNESIUM SULFATE INJ 2 GM in SODIUM CHLORIDE 0.9% INJ 96 ML IV PRN (10:00)
[2017-05-02] MEDS ORDERED: POTASSIUM PHOSPHATE INJ 30 MMOL in SODIUM CHLOR 0.9% 250 ML INJ 250 ML IV PRN (10:00)
[2017-05-02] MEDS ORDERED: DEXTROSE 50% IN WATER 50 ML VIAL(D50) IV PUSH PRN (10:00)
[2017-05-02] MEDS ORDERED: POTASSIUM PHOSPHATE MONOBASIC 500 MG TAB PO/TUBE PRN (10:00)
[2017-05-02 10:50] LABS: BLOOD GAS BASE EXCESS -13.5 mmol/L (-2-2); BLOOD GAS CARBOXYHEMOGLOBIN 0.3 % (0-4); BLOOD GAS HCO3 14 mmol/L (22-26); BLOOD GAS METHEMOGLOBIN 1.3 % (0-2); BLOOD GAS O2 HGB SATURATION 93 % (90-100); BLOOD GAS OXYGEN CONTENT 14.9 Vol % (12.0-20.0); BLOOD GAS PCO2 41 mmHg (38-42); BLOOD GAS PO2 109 mmHg (61-120); BLOOD GAS TOTAL HGB 11.2 G/DL (12.0-16.0); TEMP CORR TO 98.6
[2017-05-02 10:51] LABS: CRITICAL VALUE YES; DRAW SITE LT RADIAL; FIO2 70 %; NUMBER OF ARTERIAL PUNCTURES 1; OXYGEN DEVICE VENTILATOR; ULNAR PULSE PRESENT
[2017-05-02 10:52] LABS: STAT NO
--- NOTE | 2017-05-02 11:10 | RADRPT ---
EXAM DATE/TIME: 05/02/2017 09:52 [facility] COMPARISON: CHEST SINGLE AP, May 02, 2017, 8:11. INDICATIONS : Shortness of breath. Evaluate for atelectasis. MEDICAL HISTORY : None. SURGICAL HISTORY : Infusaport. ENCOUNTER: Initial ACUITY: 1 day PAIN SCORE: Non-responsive. LOCATION: Bilateral chest FINDINGS: ET tube is present with tip overlapping approximately 3 cm above the mari. NG tube is present with tip in the stomach. Right paratracheal mass has not changed. There is worsening airspace consolidatio n right lung base. Left basilar opacity is present may be due to a combination of consolidation and o r pleural effusion. The rest of the examination has not significantly changed. CONCLUSION: Placement of tubes and slight worsening right lung base consolidation otherwise not significantly kayla nged. Leonor Chavez MD on May 02, 2017 at 11:07 Board Certified Radiologist. This report was verified electronically.
[2017-05-02] MEDS: DEXAMETHASONE INJ 20 MG, GRANISETRON INJ 1 MG in SODIUM CHLORIDE 0.9% INJ 50 ML IV SCH (11:30)
[2017-05-02] MEDS ORDERED: IOHEXOL 350 MG/ML 10 ML VIAL (for RAD DIAG) IV ONE (11:31)
--- NOTE | 2017-05-02 11:55 | RADRPT ---
EXAM DATE/TIME: 05/02/2017 11:10 [facility] COMPARISON: CT THORAX W/O CONTRAST, April 20, 2017, 19:40. CT THORAX W/O CONTRAST, April 26, 2017, 19:00. INDICATIONS : Respiratory distress today. IV CONTRAST: 75 cc Omnipaque 350 (iohexol) IV RADIATION DOSE: 35.51 CTDIvol (mGy) MEDICAL HISTORY : Pancreatitis. Lymphoma. SURGICAL HISTORY : None. ENCOUNTER: Initial ACUITY: 1 day PAIN SCALE: Non-responsive LOCATION: Bilateral chest TECHNIQUE: Volumetric scanning of the chest was performed using a pulmonary embolism protocol MIP images were re constructed. Using automated exposure control and adjustment of the mA and/or kV according to patien t size, radiation dose was kept as low as reasonably achievable to obtain optimal diagnostic quality images. DICOM format image data is available electronically for review and comparison. Follow-up recommendations for incidentally detected pulmonary nodules are based at a minimum on nodul e size and patient risk factors according to Fleischner Society Guidelines. FINDINGS: Moderate left pleural effusion is present increased in size since the prior exam and there is co nsolidation and/or collapse of left lower lobe. The right pleural effusion is also moderate, however reduced in size. Airspace process is present however right lower lobe and right upper lobe may repres ent pneumonia. There is soft tissue density within the posterior portion of the trachea almost a cent imeter in size not present previously may represent mucous inspissated in nature. There is an approxi mate 1.8 cm pulmonary embolus in right main pulmonary artery with smaller emboli in right upper lobe and right lower lobe bronchus. Extensive bulky adenopathy is again identified not changed with fluid in the left axilla adjacent to the enlarged lymph nodes which measures 7.9 cm in size. The previously seen gas in the left axilla has resorbed and has there been surgical intervention at this site? CONCLUSION: 1. There is pulmonary embolus in the right pulmonary artery, right upper lobe and lower lobe branches . 2. Resorption of previously seen gas in the left axilla with fluid collection at this site with postp rocedural change and possibly postprocedural hemorrhage not significantly changed in size. 3. Interval development of right lung airspace process may represent postobstructive pneumonia and th ere is mucus within the trachea not present yesterday. 4. Right pleural effusion is smaller and left pleural effusion is larger. 5. No change in bulky adenopathy. Leonor Chavez MD on May 02, 2017 at 11:47 Board Certified Radiologist. This report was verified electronically.
[2017-05-02] MEDS: INSULIN NovoLIN REGULAR SUPPLEMENTAL SCALE SQ SCH ×3 (12:00→23:49)
[2017-05-02 12:02] LABS: BACTERIA, URINE RARE /hpf; BLOOD, URINE TRACE (NEG); GLUCOSE,URINE NEG (NEG); GRANULAR CAST, URINE 1 /lpf; HYALINE CAST, URINE 16 /lpf (RARE); KETONE, URINE NEG (NEG); MUCUS URINE FEW /lpf (OCC); NITRITE,URINE NEG (NEG); SQUAMOUS EPITHELIAL CELL URINE <1 /hpf (0-5); URINE COLOR YELLOW (YELLW/STRAW)
[2017-05-02 12:05] LABS: COMMENT (UR) CATH-CULTURE IND; CULTURE IF INDICATED CATH CULTURE IND
--- NOTE | 2017-05-02 12:42 | PD.ONC.PN ---
Subjective Subjective Remarks Afebrile overnight. Patient intubated, sedated. Transferred to [facility] this AM due to respiratory distress. CTA found PE. Objective Data Date Time Temp Pulse Resp B/P Pulse Ox O2 Delivery O2 Flow Rate FiO2 05/02/17 12:00 70 05/02/17 10:30 96 100 05/02/17 10:00 70 05/02/17 09:49 99 70 05/02/17 08:40 92 Partial Non-Rebreather 15.00 05/02/17 08:00 97.3 111 22 133/84 91 05/02/17 07:47 92 Nasal Cannula 6.00 05/02/17 04:00 98.0 90 18 151/83 95 05/02/17 00:02 115 05/02/17 00:00 97.5 102 17 125/84 92 05/01/17 21:13 Simple Mask 10.00 05/01/17 20:18 91 Simple Mask 10.00 05/01/17 20:11 106 05/01/17 20:00 97.6 107 17 130/96 92 05/01/17 18:14 109 05/01/17 16:00 97.1 105 20 159/92 93 05/01/17 16:00 90 Nasal Cannula 3.00 05/01/17 13:54 97.2 107 22 134/94 05/01/17 13:00 92 Nasal Cannula 3.00 05/01/17 12:58 97.0 102 20 172/107 93 05/02/17 05/02/17 05/02/17 07:00 15:00 23:00 Intake Total 590 ml Output Total 250 ml Balance 340 ml Result Diagram: 05/02/17 0523 05/02/17 0523 Laboratory Results Laboratory Tests Test 05/01/17 05/02/17 05/02/17 05/02/17 14:30 05:23 10:25 10:40 Sodium Level 137 MEQ/L 138 MEQ/L Potassium Level 3.8 MEQ/L 3.8 MEQ/L Chloride Level 101 MEQ/L 102 MEQ/L Carbon Dioxide Level 22.1 MEQ/L 20.8 MEQ/L Anion Gap 14 MEQ/L 15 MEQ/L Blood Urea Nitrogen 17 MG/DL 16 MG/DL Creatinine 1.32 MG/DL 1.29 MG/DL Estimat Glomerular Filtration 70 ML/MIN 72 ML/MIN Rate Random Glucose 98 MG/DL 64 MG/DL Calcium Level 8.7 MG/DL 8.1 MG/DL White Blood Count 7.9 TH/MM3 Red Blood Count 4.03 MIL/MM3 Hemoglobin 12.0 GM/DL Hematocrit 34.7 % Mean Corpuscular Volume 86.2 FL Mean Corpuscular Hemoglobin 29.8 PG Mean Corpuscular Hemoglobin 34.5 % Concent Red Cell Distribution Width 16.7 % Platelet Count 265 TH/MM3 Mean Platelet Volume 8.1 FL Neutrophils (%) (Auto) 92.4 % Lymphocytes (%) (Auto) 3.4 % Monocytes (%) (Auto) 4.1 % Eosinophils (%) (Auto) 0.0 % Basophils (%) (Auto) 0.1 % Neutrophils # (Auto) 7.3 TH/MM3 Lymphocytes # (Auto) 0.3 TH/MM3 Monocytes # (Auto) 0.3 TH/MM3 Eosinophils # (Auto) 0.0 TH/MM3 Basophils # (Auto) 0.0 TH/MM3 CBC Comment DIFF FINAL Differential Comment Uric Acid 4.5 MG/DL Phosphorus Level 3.8 MG/DL Lactate Dehydrogenase 717 U/L Urine Color YELLOW Urine Turbidity HAZY Urine pH 5.0 Urine Specific [place] 1.015 Urine Protein 30 mg/dL Urine Glucose (UA) NEG mg/dL Urine Ketones NEG mg/dL Urine Occult Blood TRACE Urine Nitrite NEG Urine Bilirubin NEG Urine Urobilinogen LESS THAN 2.0 MG/DL Urine Leukocyte Esterase NEG Urine RBC 2 /hpf Urine WBC 3 /hpf Urine Squamous Epithelial <1 /hpf Cells Urine Bacteria RARE /hpf Urine Hyaline Casts 16 /lpf Urine Granular Casts 1 /lpf Urine Mucus FEW /lpf Microscopic Urinalysis Comment CATH-CULTURE IND Blood Gas Puncture Site LT RADIAL Blood Gas Patient Temperature 98.6 Blood Gas HCO3 14 mmol/L Blood Gas Base Excess -13.5 mmol/L Blood Gas Oxygen Saturation 93 % Arterial Blood pH 7.15 Arterial Blood Partial 41 mmHg Pressure CO2 Arterial Blood Partial 109 mmHg Pressure O2 Arterial Blood Oxygen Content 14.9 Vol % Arterial Blood 0.3 % Carboxyhemoglobin Arterial Blood Methemoglobin 1.3 % Blood Gas Hemoglobin 11.2 G/DL Oxygen Delivery Device VENTILATOR Blood Gas Ventilator Setting 500/14/10PEEP Blood Gas Inspired Oxygen 70 % Test 05/02/17 12:00 Troponin I LESS THAN 0.02 NG/ML Culture Results Microbiology Date/Time Procedure Status Source Growth 04/30/17 12:55 Gram Stain - Final Resulted Fluid Pleural Fluid 04/30/17 12:55 Body Fluid Culture - Preliminary Resulted Fluid Pleural Fluid NO GROWTH IN 48 HOURS. 04/30/17 12:55 Acid Fast Stain - Final Resulted Fluid Pleural Fluid NO ACID FAST BACILLI SEEN 04/30/17 12:55 Mycobacterial Culture Resulted Fluid Pleural Fluid Pending 04/30/17 12:55 Fungal Smear - Final Resulted Fluid Pleural Fluid NO FUNGAL ELEMENTS SEEN. 04/30/17 12:55 Fungal Culture Resulted Fluid Pleural Fluid Pending 05/02/17 10:25 Urine Culture Received Urine Catheterized Urine Pending Imaging Studies Last 24 hours Impressions Chest X-Ray 05/02/17 0000 Signed Impressions: Service Date/Time: Tuesday, May 02, 2017 09:52 - CONCLUSION: Placement of tubes and slight worsening right lung base consolidation otherwise not significantly changed. Leonor Chavez MD Chest X-Ray 05/02/17 0000 Signed Impressions: Service Date/Time: Tuesday, May 02, 2017 08:11 - CONCLUSION: There is mild improvement in aeration of the right lower lung, otherwise not significantly changed. Leonor Chavez MD CT Angiography 05/02/17 0000 Signed Impressions: Service Date/Time: Tuesday, May 02, 2017 11:10 - CONCLUSION: 1. There is pulmonary embolus in the right pulmonary artery, right upper lobe and lower lobe branches. 2. Resorption of previously seen gas in the left axilla with fluid collection at this site with postprocedural change and possibly postprocedural hemorrhage not significantly changed in size. 3. Interval development of right lung airspace process may represent postobstructive pneumonia and there is mucus within the trachea not present yesterday. 4. Right pleural effusion is smaller and left pleural effusion is larger. 5. No change in bulky adenopathy. Leonor Chavez MD Administered Medications Medications (Trade) Dose Ordered Sig/Shyla Route PRN Reason Start Time Stop Time Status Last Admin Dose Admin Sodium Chloride (NS Flush) 2 ml UNSCH PRN IV FLUSH FLUSH AFTER USING IV ACCESS 04/18/17 17:30 04/21/17 22:27 Senna/Docusate Sodium (Porsha-Colace) 1 tab BID PO 04/18/17 21:00 05/01/17 09:09 Heparin Sodium (Porcine) (Heparin Inj) 5,000 units Q8HR SQ 04/19/17 14:00 05/02/17 05:18 Hydralazine HCl (Apresoline Inj) 10 mg Q6HR PRN IV PUSH SBP>160, DBP>90 04/21/17 17:00 04/27/17 10:15 Allopurinol (Zyloprim) 300 mg DAILY PO 04/27/17 09:00 05/01/17 09:09 Nifedipine (Procardia Xl) 90 mg DAILY PO 04/28/17 09:00 05/01/17 09:00 Clonidine (Catapres) 0.1 mg Q6H PRN PO SBP>160, DBP>90 04/27/17 15:00 04/29/17 08:07 Ondansetron HCl (Zofran Inj) 4 mg Q6HR PRN IV PUSH NAUSEA OR VOMITING 04/30/17 11:30 04/30/17 22:17 Promethazine HCl (Phenergan Inj) 25 mg Q6H PRN IM NAUSEA OR VOMITING 04/30/17 11:30 05/01/17 13:27 Acetaminophen/ Hydrocodone Bitart ([place] 5-325 Mg) 1 tab Q6H PRN PO PAIN SCALE 1 TO 10 04/30/17 11:30 05/01/17 05:15 Metoclopramide HCl (Reglan Inj) 10 mg Q8HR IV PUSH 05/01/17 15:30 05/02/17 05:18 Pantoprazole Sodium (Protonix) 40 mg DAILY PO 05/01/17 16:00 05/01/17 16:14 Objective Remarks GENERAL: Intubated sedated male supine in bed. SKIN: Warm and dry. HEAD: Normocephalic. EYES: No injection or drainage. NECK: Supple, trachea midline. CARDIOVASCULAR: +S1/S2, tachy RESPIRATORY: anterior canas clear. on mechanical ventilation. GASTROINTESTINAL: Abdomen soft, non-tender, nondistended. EXTREMITIES: No cyanosis NEUROLOGICAL: intubated, sedated Assessment/Plan Problem List: (1) Pulmonary emboli Status: Acute Plan: --CTA showed large PE --d/w Dr. Burton, plan for thrombolytic therapy. (2) Non-Hodgkin lymphoma Status: Acute Plan: 05/02: large PE found, will place EPOCH on hold until stabilized 05/01: Rituxan given over slow infusion. 04/30: s/p right sided thoracentesis. 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 (4) Acute pancreatitis Status: Resolved Plan: --Resolving --on IVF and pain management per primary team Assessment 47y/o male admitted with pancreatitis, found to have NHL. Attending Statement Patient went into respiratory distress and now intubated and sedated CTA Chest Shows Massive Pulmonary embolism Discuss with meeting manager Dr. Calero. Echo shows a right heart strain. Will Start TPA Hold EPOCH chemo Had Rituxan yesterday The exam, history, and the medical decision-making described in the above note were completed with the assistance of the mid-level provider. I reviewed and agree with the findings presented. I attest that I had a [id number] encounter with the patient on the same day, and personally performed and documented my assessment and findings in the medical record. Problem Qualifiers (1) Non-Hodgkin lymphoma: (2) Acute pancreatitis: Qualified Code: K85.20 - Alcohol-induced acute pancreatitis, unspecified complication status Brenda Platt May 02, 2017 12:42 Ga Murphy MD May 02, 2017 23:44
[2017-05-02] MEDS: ALLOPURINOL 300 MG TAB PO SCH (12:48)
[2017-05-02] MEDS: predniSONE 10 MG TAB PO SCH ×3 (12:48→20:08)
[2017-05-02] MEDS: PROPOFOL 1000 MG/100 ML INJ 100 ML IV SCH ×2 (12:50→12:51)
[2017-05-02] MEDS: fentaNYL DRIP 250 ML IV SCH ×2 (12:50→23:49)
--- NOTE | 2017-05-02 14:20 | PD.CONS ---
History of Present Illness Consult Requested By Primary Care Physician Diagnoses: Past Family Social History Allergies: Coded Allergies: No Known Allergies (Unverified , 04/18/17) Physical Exam Result Diagram: 05/02/17 0523 05/02/17 0523 Maggy Solis MD May 02, 2017 14:20 nonproductive cough, that has been getting worse, he also states he was a heavy smoker up until about 2 months ago. Past Family Social History Allergies: Coded Allergies: No Known Allergies (Unverified , 04/18/17) Past Medical History Negative Past Surgical History Negative Active Ordered Medications [place] Albuterol Allopurinol Dulcolax Cyclophosphamide Decadron Etoposide/Doxorubicin/Vincristine fentanyl Heparin Hydralazine Insulin Lactulose MOM Magnesium Reglan Procardia Zofran Protonix Potassium Prednisone Phenergan Diprivan Porsha-colace Senokot Family History Non-contributory Social History Tobacco use: Quit 2 months ago, 1 PPD prior for many years Alcohol use: Quit 2 months ago, 8 pk a day prior No illicit drugs Physical Exam Vital Signs Vital Signs Date Time Temp Pulse Resp B/P Pulse Ox O2 Delivery O2 Flow Rate FiO2 05/02/17 12:44 94 70 05/02/17 12:00 70 05/02/17 12:00 117 05/02/17 10:30 96 100 05/02/17 10:00 70 05/02/17 10:00 126 05/02/17 09:49 99 70 05/02/17 08:40 92 Partial Non-Rebreather 15.00 05/02/17 08:00 93 Simple Mask 10.00 05/02/17 08:00 97.3 111 22 133/84 91 05/02/17 07:47 92 Nasal Cannula 6.00 05/02/17 04:00 98.0 90 18 151/83 95 05/02/17 00:02 115 05/02/17 00:00 97.5 102 17 125/84 92 05/01/17 21:13 Simple Mask 10.00 05/01/17 20:18 91 Simple Mask 10.00 05/01/17 20:11 106 05/01/17 20:00 97.6 107 17 130/96 92 05/01/17 18:14 109 05/01/17 16:00 97.1 105 20 159/92 93 05/01/17 16:00 90 Nasal Cannula 3.00 Physical Exam GENERAL: Patient is a well-nourished, well-developed patient, awake and alert , not in respiratory distress. SKIN: Warm and dry. No generalized rash, no ecchymoses and no evidence of embolic lesions. HEAD: Atraumatic. Normocephalic. No temporal wasting, or tenderness. EYES: [place] conjunctiva. No petechia or hemorrhage. Pupils equal, round and reactive to light. Extraocular movements full and intact. No scleral icterus. No injection or drainage. EARS, NOSE AND THROAT: Nose without bleeding or purulent nasal discharge. No sinus tenderness. Mucous membranes pink and moist. No oral lesions noted. No exudate. No oral thrush. NECK: Trachea midline. Supple and not tender, no meningeal signs CARDIOVASCULAR: Regular rate and rhythm. No murmurs, rubs or gallops heard RESPIRATORY: Clear to auscultation. Breath sounds equal bilaterally. No rales , wheezing or rhonchi ABDOMEN: Soft, non-tender, nondistended. Bowel sounds present and normoactive. No guarding. No rebound. No organomegaly. EXTREMITIES: No clubbing, cyanosis, or edema.No joint effusion, has good ROM. No calf tenderness. Well perfused and warm. NEUROLOGICAL: Awake and alert. Cranial nerves grossly intact. Motor grossly within normal limits. PSYCHIATRIC: Normal affect, calm and cooperative. LINE: No evidence of infection Laboratory Laboratory Tests Test 05/01/17 05/02/17 05/02/17 05/02/17 14:30 05:23 10:25 10:40 Sodium Level 137 138 Potassium Level 3.8 3.8 Chloride Level 101 102 Carbon Dioxide Level 22.1 20.8 Anion Gap 14 15 Blood Urea Nitrogen 17 16 Creatinine 1.32 1.29 Estimat Glomerular Filtration 70 72 Rate Random Glucose 98 64 Calcium Level 8.7 8.1 White Blood Count 7.9 Red Blood Count 4.03 Hemoglobin 12.0 Hematocrit 34.7 Mean Corpuscular Volume 86.2 Mean Corpuscular Hemoglobin 29.8 Mean Corpuscular Hemoglobin 34.5 Concent Red Cell Distribution Width 16.7 Platelet Count 265 Mean Platelet Volume 8.1 Neutrophils (%) (Auto) 92.4 Lymphocytes (%) (Auto) 3.4 Monocytes (%) (Auto) 4.1 Eosinophils (%) (Auto) 0.0 Basophils (%) (Auto) 0.1 Neutrophils # (Auto) 7.3 Lymphocytes # (Auto) 0.3 Monocytes # (Auto) 0.3 Eosinophils # (Auto) 0.0 Basophils # (Auto) 0.0 CBC Comment DIFF FINAL Differential Comment Uric Acid 4.5 Phosphorus Level 3.8 Lactate Dehydrogenase 717 Urine Color YELLOW Urine Turbidity HAZY Urine pH 5.0 Urine Specific [place] 1.015 Urine Protein 30 Urine Glucose (UA) NEG Urine Ketones NEG Urine Occult Blood TRACE Urine Nitrite NEG Urine Bilirubin NEG Urine Urobilinogen LESS THAN 2.0 Urine Leukocyte Esterase NEG Urine RBC 2 Urine WBC 3 Urine Squamous Epithelial <1 Cells Urine Bacteria RARE Urine Hyaline Casts 16 Urine Granular Casts 1 Urine Mucus FEW Microscopic Urinalysis Comment CATH-CULTURE IND Blood Gas Puncture Site LT RADIAL Blood Gas Patient Temperature 98.6 Blood Gas HCO3 14 Blood Gas Base Excess -13.5 Blood Gas Oxygen Saturation 93 Arterial Blood pH 7.15 Arterial Blood Partial 41 Pressure CO2 Arterial Blood Partial 109 Pressure O2 Arterial Blood Oxygen Content 14.9 Arterial Blood 0.3 Carboxyhemoglobin Arterial Blood Methemoglobin 1.3 Blood Gas Hemoglobin 11.2 Oxygen Delivery Device VENTILATOR Blood Gas Ventilator Setting 500/14/10PEEP Blood Gas Inspired Oxygen 70 Test 05/02/17 12:00 Troponin I LESS THAN 0.02 B-Type Natriuretic Peptide 88 Date/Time Procedure Status Source Growth 05/02/17 10:25 Urine Culture Received Urine Catheterized Urine Pending 04/30/17 12:55 Gram Stain - Final Resulted Fluid Pleural Fluid 04/30/17 12:55 Body Fluid Culture - Preliminary Resulted Fluid Pleural Fluid NO GROWTH IN 48 HOURS. 04/30/17 12:55 Fungal Smear - Final Resulted Fluid Pleural Fluid NO FUNGAL ELEMENTS SEEN. 04/30/17 12:55 Fungal Culture Resulted Fluid Pleural Fluid Pending 04/30/17 12:55 Acid Fast Stain - Final Resulted Fluid Pleural Fluid NO ACID FAST BACILLI SEEN 04/30/17 12:55 Mycobacterial Culture Resulted Fluid Pleural Fluid Pending Result Diagram: 05/02/17 0523 05/02/17 0523 Imaging RADIOLOGY STUDIES/FILMS REVIEWED Last Impressions Chest X-Ray 05/02/17 0000 Signed Impressions: Service Date/Time: Tuesday, May 02, 2017 09:52 - CONCLUSION: Placement of tubes and slight worsening right lung base consolidation otherwise not significantly changed. Leonor Chavez MD CT Angiography 05/02/17 Signed Impressions: Service Date/Time: Tuesday, May 02, 2017 11:10 - CONCLUSION: 1. There is pulmonary embolus in the right pulmonary artery, right upper lobe and lower lobe branches. 2. Resorption of previously seen gas in the left axilla with fluid collection at this site with postprocedural change and possibly postprocedural hemorrhage not significantly changed in size. 3. Interval development of right lung airspace process may represent postobstructive pneumonia and there is mucus within the trachea not present yesterday. 4. Right pleural effusion is smaller and left pleural effusion is larger. 5. No change in bulky adenopathy. Leonor Chavez MD Upper Extremity Ultrasound 04/30/17 Signed Impressions: Service Date/Time: April 12:25 - CONCLUSION: There some superficial thrombosis of a vein in the forearm. The deep venous system is patent. Large fluid collection left axilla. Significant soft tissue edema throughout the upper arm. Rinku Hillman MD Thoracentesis Ultrasound 04/30/17 0000 Signed Impressions: Service Date/Time: April 12:14 - CONCLUSION: Uncomplicated ultrasound guided thoracentesis. Tray Patel MD Port Line Insertion 04/27/17 Signed Impressions: Service Date/Time: Thursday, April 27, 2017 14:56 - CONCLUSION: 1. Bulky bilateral lower cervical lymphadenopathy. 2. Uncomplicated ultrasound and fluoroscopic guided implanted central venous port catheter placement as described in detail above. An 8 [place] port was placed. Liang Peralta MD Bone Biopsy CT 04/27/17 0000 Signed Impressions: Service Date/Time: Thursday, April 27, 2017 16:22 - CONCLUSION: 1. Uncomplicated CT guided bone marrow aspirate. 2. Uncomplicated CT guided bone marrow biopsy. Tray Patel MD Chest CT 04/25/17 0000 Signed Impressions: Service Date/Time: Wednesday, April 26, 2017 19:00 - CONCLUSION: The right pleural effusion is slightly larger on the left side has not changed. Extensive bulky adenopathy as before and malignancies such as lymphoma is suspected. Leonor Chavez MD Gall Bladder Ultrasound 04/22/17 0000 Signed Impressions: Service Date/Time: Saturday, April 22, 2017 07:35 - CONCLUSION: Small liver with focal abdomen only incompletely evaluated. Large right pleural effusion. effusion. Kirk Briceño MD FACR Abdomen CT 04/20/17 0000 Signed Impressions: Service Date/Time: Thursday, April 20, 2017 19:40 - CONCLUSION: Limited exam because of lack of intravenous contrast. Lymphoma is suspected. Pathological diagnosis could be obtained with ultrasound biopsy of the cervical, axillary or inguinal adenopathy. Kirk Briceño MD FACR Assessment and Plan Assessment and Plan IMPRESSION RECOMMENDATION Maggy Solis MD May 02, 2017 14:20
--- NOTE | 2017-05-02 14:42 | PD.CONS ---
History of Present Illness Service Infectious disease Consult Requested By Dr Juan Mera Primary Care Physician No Primary Care Physician Diagnoses: History of Present Illness Patient seen and examined. Records reviewed. Patient is a 47-year-old male, initially presented to the hospital complaining of abdominal pain, nausea, and vomiting. He was found to have pancreatitis, and he also had elevated liver function tests. There is history of previous alcohol abuse. He was also found to have a right base pneumonia, and he was started on a Zithromax and Rocephin. Patient also had some abnormality on his urinalysis and was also being treated for UTI. His imaging study showed right hilar mass, and he had evidence on exam of supraclavicular lymph nodes. CT of the chest revealed pleural effusion, and extensive mediastinal and axillary lymphadenopathy. 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 Oncology has been following the patient, and patient was started on chemotherapy on April 30. Patient's pancreatitis has improved although he still has some abdominal pain. He got Rituxan on on May 08, and he is currently getting Decadron, cyclophosphamide, as well as etoposide /Doxorubicin/Vincristine. This morning he went into respiratory failure, and transferred to the ICU, and ended up getting intubated. Pulmonary started seeing the patient around April 29 and at that time he had shortness of breath. He had bilateral pleural effusion, and underwent thoracentesis on the right, and the fluid is exudative. Patient had CTA today, and it showed pulmonary embolism, as well as no infiltrates on the right side. He is afebrile. Currently on the vent, and on sedation. Infectious disease consultation has been requested to evaluate the patient with newly diagnosed lymphoma, started on chemotherapy, has PE, and pneumonia. Review of Systems ROS Limitations: Clinical Condition, Intubated, Unresponsive Past Family Social History Allergies: Coded Allergies: No Known Allergies (Unverified , 04/18/17) Past Medical History None Previous tobacco abuse Previous alcohol use Past Surgical History None Active Ordered Medications [place] Albuterol Allopurinol Dulcolax Cyclophosphamide Decadron Etoposide/Doxorubicin/Vincristine fentanyl Heparin Hydralazine Insulin Lactulose MOM Magnesium Reglan Procardia Zofran Protonix Potassium Prednisone Phenergan Diprivan Porsha-colace Senokot Family History Noncontributory Social History Ex-smoker, quit 2 months ago Ex alcohol use, quit 2 months ago No illicit drugs Physical Exam Vital Signs Vital Signs Date Time Temp Pulse Resp B/P Pulse Ox O2 Delivery O2 Flow Rate FiO2 05/02/17 12:44 94 70 05/02/17 12:00 70 05/02/17 12:00 117 05/02/17 10:30 96 100 05/02/17 10:00 70 05/02/17 10:00 126 05/02/17 09:49 99 70 05/02/17 08:40 92 Partial Non-Rebreather 15.00 05/02/17 08:00 93 Simple Mask 10.00 05/02/17 08:00 97.3 111 22 133/84 91 05/02/17 07:47 92 Nasal Cannula 6.00 05/02/17 04:00 98.0 90 18 151/83 95 05/02/17 00:02 115 05/02/17 00:00 97.5 102 17 125/84 92 05/01/17 21:13 Simple Mask 10.00 05/01/17 20:18 91 Simple Mask 10.00 05/01/17 20:11 106 05/01/17 20:00 97.6 107 17 130/96 92 05/01/17 18:14 109 05/01/17 16:00 97.1 105 20 159/92 93 05/01/17 16:00 90 Nasal Cannula 3.00 Physical Exam GENERAL: Patient is a thin, well-developed male, sedated on the vent, not in respiratory distress. SKIN: Warm and dry. No generalized rash, no ecchymoses and no evidence of embolic lesions. HEAD: Atraumatic. Normocephalic. No temporal wasting, or tenderness. EYES: [place] conjunctiva. No petechia or hemorrhage. Pupils equal, round and reactive to light. Has dirty sclera. No injection or drainage. EARS, NOSE AND THROAT: Nose without bleeding or purulent nasal discharge. Mucous membranes moist. Orally intubated. Has poor dentition. NECK: Trachea midline. Supple and not tender, no meningeal signs. Has significant lymphadenopathy. CARDIOVASCULAR: Regular rate and rhythm. No murmurs, rubs or gallops heard RESPIRATORY: Coarse breath sounds bilaterally, decreased at the bases, worse on the right than on the left. The port is in the right upper chest, currently accessed, no redness or drainage noted. ABDOMEN: Distended, hypoactive bowel sounds, tympanitis, no reaction to palpation. Has inguinal LN present. EXTREMITIES: No clubbing, cyanosis, or edema. No joint effusion. Warm. Has very dry skin both feet. NEUROLOGICAL: Sedated. No babinski, no clonus PSYCHIATRIC: Unable to assess LINE: Port no evidence of infection. Multiple PIV no evidence of infection : Singh in place, urine looks clear Laboratory Laboratory Tests Test 05/02/17 05/02/17 05/02/17 05/02/17 05:23 10:25 10:40 12:00 White Blood Count 7.9 Red Blood Count 4.03 Hemoglobin 12.0 Hematocrit 34.7 Mean Corpuscular Volume 86.2 Mean Corpuscular Hemoglobin 29.8 Mean Corpuscular Hemoglobin 34.5 Concent Red Cell Distribution Width 16.7 Platelet Count 265 Mean Platelet Volume 8.1 Neutrophils (%) (Auto) 92.4 Lymphocytes (%) (Auto) 3.4 Monocytes (%) (Auto) 4.1 Eosinophils (%) (Auto) 0.0 Basophils (%) (Auto) 0.1 Neutrophils # (Auto) 7.3 Lymphocytes # (Auto) 0.3 Monocytes # (Auto) 0.3 Eosinophils # (Auto) 0.0 Basophils # (Auto) 0.0 CBC Comment DIFF FINAL Differential Comment Sodium Level 138 Potassium Level 3.8 Chloride Level 102 Carbon Dioxide Level 20.8 Anion Gap 15 Blood Urea Nitrogen 16 Creatinine 1.29 Estimat Glomerular Filtration 72 Rate Random Glucose 64 Uric Acid 4.5 Calcium Level 8.1 Phosphorus Level 3.8 Lactate Dehydrogenase 717 Urine Color YELLOW Urine Turbidity HAZY Urine pH 5.0 Urine Specific [place] 1.015 Urine Protein 30 Urine Glucose (UA) NEG Urine Ketones NEG Urine Occult Blood TRACE Urine Nitrite NEG Urine Bilirubin NEG Urine Urobilinogen LESS THAN 2.0 Urine Leukocyte Esterase NEG Urine RBC 2 Urine WBC 3 Urine Squamous Epithelial <1 Cells Urine Bacteria RARE Urine Hyaline Casts 16 Urine Granular Casts 1 Urine Mucus FEW Microscopic Urinalysis Comment CATH-CULTURE IND Blood Gas Puncture Site LT RADIAL Blood Gas Patient Temperature 98.6 Blood Gas HCO3 14 Blood Gas Base Excess -13.5 Blood Gas Oxygen Saturation 93 Arterial Blood pH 7.15 Arterial Blood Partial 41 Pressure CO2 Arterial Blood Partial 109 Pressure O2 Arterial Blood Oxygen Content 14.9 Arterial Blood 0.3 Carboxyhemoglobin Arterial Blood Methemoglobin 1.3 Blood Gas Hemoglobin 11.2 Oxygen Delivery Device VENTILATOR Blood Gas Ventilator Setting 500/14/10PEEP Blood Gas Inspired Oxygen 70 Troponin I LESS THAN 0.02 B-Type Natriuretic Peptide 88 Date/Time Procedure Status Source Growth 05/02/17 10:25 Urine Culture Received Urine Catheterized Urine Pending 04/30/17 12:55 Gram Stain - Final Resulted Fluid Pleural Fluid 04/30/17 12:55 Body Fluid Culture - Preliminary Resulted Fluid Pleural Fluid NO GROWTH IN 48 HOURS. 04/30/17 12:55 Fungal Smear - Final Resulted Fluid Pleural Fluid NO FUNGAL ELEMENTS SEEN. 04/30/17 12:55 Fungal Culture Resulted Fluid Pleural Fluid Pending 04/30/17 12:55 Acid Fast Stain - Final Resulted Fluid Pleural Fluid NO ACID FAST BACILLI SEEN 04/30/17 12:55 Mycobacterial Culture Resulted Fluid Pleural Fluid Pending Result Diagram: 05/02/17 0523 05/02/17 0523 Imaging RADIOLOGY STUDIES/FILMS REVIEWED Last Impressions Chest X-Ray 05/02/17 0000 Signed Impressions: Service Date/Time: Tuesday, May 02, 2017 09:52 - CONCLUSION: Placement of tubes and slight worsening right lung base consolidation otherwise not significantly changed. Leonor Chavez MD CT Angiography 05/02/17 0000 Signed Impressions: Service Date/Time: Tuesday, May 02, 2017 11:10 - CONCLUSION: 1. There is pulmonary embolus in the right pulmonary artery, right upper lobe and lower lobe branches. 2. Resorption of previously seen gas in the left axilla with fluid collection at this site with postprocedural change and possibly postprocedural hemorrhage not significantly changed in size. 3. Interval development of right lung airspace process may represent postobstructive pneumonia and there is mucus within the trachea not present yesterday. 4. Right pleural effusion is smaller and left pleural effusion is larger. 5. No change in bulky adenopathy. Leonor Chavez MD Upper Extremity Ultrasound 04/30/17 0000 Signed Impressions: Service Date/Time: April 12:25 - CONCLUSION: There some superficial thrombosis of a vein in the forearm. The deep venous system is patent. Large fluid collection left axilla. Significant soft tissue edema throughout the upper arm. Rinku Hillman MD Thoracentesis Ultrasound 04/30/17 0000 Signed Impressions: Service Date/Time: April 12:14 - CONCLUSION: Uncomplicated ultrasound guided thoracentesis. Tray Patel MD Port Line Insertion 04/27/17 0000 Signed Impressions: Service Date/Time: Thursday, April 27, 2017 14:56 - CONCLUSION: 1. Bulky bilateral lower cervical lymphadenopathy. 2. Uncomplicated ultrasound and fluoroscopic guided implanted central venous port catheter placement as described in detail above. An 8 [place] [employer] port was placed. Liang Peralta MD Bone Biopsy CT 04/27/17 0000 Signed Impressions: Service Date/Time: Thursday, April 27, 2017 16:22 - CONCLUSION: 1. Uncomplicated CT guided bone marrow aspirate. 2. Uncomplicated CT guided bone marrow biopsy. Tray Patel MD Chest CT 04/25/17 0000 Signed Impressions: Service Date/Time: Wednesday, April 26, 2017 19:00 - CONCLUSION: The right pleural effusion is slightly larger on the left side has not changed. Extensive bulky adenopathy as before and malignancies such as lymphoma is suspected. Leonor Chavez MD Gall Bladder Ultrasound 04/22/17 0000 Signed Impressions: Service Date/Time: Saturday, April 22, 2017 07:35 - CONCLUSION: Small liver with focal abdomen only incompletely evaluated. Large right pleural effusion. effusion. Kirk Briceño MD FACR Abdomen CT 04/20/17 0000 Signed Impressions: Service Date/Time: Thursday, April 20, 2017 19:40 - CONCLUSION: Limited exam because of lack of intravenous contrast. Lymphoma is suspected. Pathological diagnosis could be obtained with ultrasound biopsy of the cervical, axillary or inguinal adenopathy. Kirk Briceño MD FACR Assessment and Plan Assessment and Plan IMPRESSION Respiratory failure, with multiple PE on R, has new infiltrates, ?PNA, ? infarct - PE on R and infiltrates on R Has Tomi effusions, tap is exudative, ?lymphoma New NHL, started on chemo 04/30 Pancreatitis, and elevated LFT likely due to ETOH RECOMMENDATION Get cultures Sputum, BC and urine C/S Start Cefepime Give dose of Vanco Follow C/S and adjust Abx Monitor progress Getting chemo I will follow along with you Thank you for this consultation Maggy Solis MD 22, 2017 14:42
[2017-05-02] MEDS ORDERED: VANCOMYCIN INJ 1,000 MG in SODIUM CHLOR 0.9% 250 ML INJ 250 ML IV ONE (15:00)
[2017-05-02] MEDS ORDERED: HEPARIN SODIUM - IV 10,000 UNITS/10 ML VIAL IV ONE (16:00)
[2017-05-02] MEDS: CEFEPIME INJ 2,000 MG in SODIUM CHLORIDE 0.9% INJ 100 ML IV SCH (16:14)
--- NOTE | 2017-05-02 17:05 | RADRPT ---
EXAM DATE/TIME: 05/02/2017 16:45 [facility] COMPARISON: No previous studies available for comparison. INDICATIONS : Altered mental status, unresponsive. RADIATION DOSE: 47.29 CTDIvol (mGy) MEDICAL HISTORY : Lymphoma. Pancreatitis. SURGICAL HISTORY : Non-responsive. ENCOUNTER: Initial ACUITY: 1 day PAIN SCALE: Non-responsive LOCATION: Bilateral head TECHNIQUE: Multiple contiguous axial images were obtained of the head. Using automated exposure control and adj ustment of the mA and/or kV according to patient size, radiation dose was kept as low as reasonably a chievable to obtain optimal diagnostic quality images. DICOM format image data is available electro nically for review and comparison. FINDINGS: CEREBRUM: The ventricles are normal for age. No evidence of midline shift, mass lesion, hemorrhage or acute in farction. No extra-axial fluid collections are seen. POSTERIOR FOSSA: The cerebellum and brainstem are intact. The 4th ventricle is midline. The cerebellopontine angle i s unremarkable. EXTRACRANIAL: The visualized portion of the orbits is intact. SKULL: The calvaria is intact. No evidence of skull fracture. CONCLUSION: No acute intracranial disease. Tray Patel MD on May 02, 2017 at 17:00 Board Certified Radiologist. This report was verified electronically.
[2017-05-02] MEDS ORDERED: CHLORHEXIDINE GLUCONATE 2 % 1 PACK (2 CLOTHS)(extra cloths) TOPICAL PRN (17:15)
--- NOTE | 2017-05-02 19:11 | ECHRPT ---
Indication: EF assessment of CHF CONCLUSIONS Normal left ventricular size. Wall thickness is normal. The RV isdilated and hypocontractile The left ventricular systolic function is severely reduced with an estimated ejection fraction in th e range of 30-40%. Trace mitral valve regurgitation. There is mild to moderate tricuspid valve regurgitation. There is estimated mild pulmonary hypertension present (range 40-50 mmHg). IVC does not collapse but is also not dilated.There is a small pericardial effusion present. No hemodynamically significant echocardiographic features were observed (no pre-tamponade physiology). BP: 85 / 57 HR: 117 Rhythm: MEASUREMENTS (Male / Female) Normal Values Technical Quality: 2D ECHO LV Diastolic Diameter PLAX 4.6 cm 4.2 - 5.9 / 3.9 - 5.3 cm LV Systolic Diameter PLAX 4.0 cm IVS Diastolic Thickness 0.8 cm 0.6 - 1.0 / 0.6 - 0.9 cm LVPW Diastolic Thickness 0.8 cm 0.6 - 1.0 / 0.6 - 0.9 cm LV Relative Wall Thickness 0.4 LVOT Diameter 2.5 cm Aortic Root Diameter 3.1 cm DOPPLER AV Peak Velocity 93.0 cm/s AV Peak Gradient 3.5 mmHg AV Mean Gradient 2.0 mmHg AV Velocity Time Integral 12.3 cm LVOT Peak Velocity 52.6 cm/s LVOT Peak Gradient 1.1 mmHg LVOT Velocity Time Integral 5.3 cm LVOT Cardiac Index 9271.6 cm/minm AV Area Cont Eq vti 2.1 cm AV Area Cont Eq pk 2.8 cm LV E' Lateral Velocity 7.1 cm/s LV E' Septal Velocity 6.7 cm/s TR Peak Velocity 293.0 cm/s TR Peak Gradient 34.3 mmHg PV Peak Velocity 84.2 cm/s PV Peak Gradient 2.8 mmHg FINDINGS LEFT VENTRICLE Normal left ventricular size. Wall thickness is normal. The left ventricular systolic function is severely reduced with an estimated ejection fraction in th e range of 30-40%. RIGHT VENTRICLE The RV is dilated and hypocontractile MITRAL VALVE Structurally normal mitral valve. Trace mitral valve regurgitation. TRICUSPID VALVE Structurally normal tricuspid valve. There is mild to moderate tricuspid valve regurgitation. There is estimated mild pulmonary hypertension present (range 40-50 mmHg). VESSELS IVC does not collapse but is also not dilated. PERICARDIUM There is a small pericardial effusion present. No hemodynamically significant echocardiographic features were observed (no pre-tamponade physiology). OTHER FINDINGS Tissue Doppler Right heart 39.9 cm/s TAPSE 17mm RV measurements 64X 40 mm Sarah Gordon MD, FACC (Electronically Signed) Final Date:02 May 2017 19:10
[2017-05-02] MEDS ORDERED: MISCELLANEOUS PHARMACY INFORMATION OTHER ONE (19:15)
[2017-05-02] MEDS ORDERED: SODIUM CHLORIDE 0.9% 50 ML BAG IVF ONE (19:15)
[2017-05-02] MEDS ORDERED: ALTEPLASE DRIP IV ONE (19:15)
[2017-05-02] MEDS: CHLORHEXIDINE 0.12% (ORAL KIT) 15 ML CUP MT SCH (20:00)
[2017-05-03] VITALS (20 sets, daily range): BP systolic 82–111; BP diastolic 47–56; PULSE 79–117; RESP 14–15; TEMP 97.7–99.3; O2SAT 93–100
[2017-05-03] MEDS: CEFEPIME INJ 2,000 MG in SODIUM CHLORIDE 0.9% INJ 100 ML IV SCH ×2 (02:33→15:02)
[2017-05-03] MEDS: HEPARIN-D5W 25,000 U/250 ML 250 ML IV SCH ×2 (02:36→22:33)
[2017-05-03] MEDS: RESP: ALBUTEROL 2.5 MG/IPRATROPIUM 0.5 MG NEB (SCH) INH ×4 (02:46→20:07)
[2017-05-03 03:21] LABS: APTT (PATIENT) 32.2 SEC (24.3-30.1)
[2017-05-03] MEDS: CHLORHEXIDINE GLUCONATE 2 % 1 PACK (2 CLOTHS)(taper/protocol) TOPICAL SCH (04:00)
[2017-05-03] MEDS: PROPOFOL 1000 MG/100 ML INJ 100 ML IV SCH (04:20)
[2017-05-03] MEDS: METOCLOPRAMIDE HCL 10 MG/2 ML VIAL IV PUSH SCH ×3 (04:20→19:42)
[2017-05-03] MEDS: INSULIN NovoLIN REGULAR SUPPLEMENTAL SCALE SQ SCH ×3 (04:23→18:00)
--- NOTE | 2017-05-03 06:22 | RADRPT ---
EXAM DATE/TIME: 05/03/2017 03:46 [facility] COMPARISON: CHEST SINGLE AP, May 02, 2017, 9:52. INDICATIONS : Respiratory failure and Atelectasis MEDICAL HISTORY : Pancreatitis. Lymphoma. SURGICAL HISTORY : None. ENCOUNTER: Subsequent ACUITY: 2 days PAIN SCORE: Non-responsive. LOCATION: Bilateral chest FINDINGS: Endotracheal tube and nasogastric tube remain in place. Right chest port is stable and accessed. Ther e has been some clearance of basilar infiltrates. Lobular mediastinal contours are unchanged. Heart s ize is stable. CONCLUSION: Improving infiltrates. No Tacos Garcia MD on May 03, 2017 at 6:19 Board Certified Radiologist. This report was verified electronically.
[2017-05-03 06:37] LABS: AUTOMATED NEUTROPHIL # 9.7 TH/MM3 (1.8-7.7); BASOPHIL % 0.2 % (0.0-2.0); HEMATOCRIT 27.3 % (39.0-51.0); HEMO FLAGS DIFF FINAL; LYMPH % 2.2 % (9.0-44.0); LYMPHOCYTE # 0.2 TH/MM3 (1.0-4.8); MEAN CELL VOLUME 87.4 FL (80.0-100.0); MEAN CORPUSCULAR HEMOGLOBIN 29.4 PG (27.0-34.0); MEAN CORPUSCULAR HGB CONC 33.6 % (32.0-36.0); MONO % 2.3 % (0.0-8.0); NEUT % 95.3 % (16.0-70.0); PLATELET COUNT 260 TH/MM3 (150-450); RED BLOOD COUNT 3.12 MIL/MM3 (4.50-5.90); RED CELL DISTRIBUTION WIDTH 16.7 % (11.6-17.2); WHITE BLOOD COUNT 10.2 TH/MM3 (4.0-11.0)
[2017-05-03 06:54] LABS: BICARBONATE 23.5 MEQ/L (21.0-32.0); POTASSIUM 5.4 MEQ/L (3.5-5.1)
--- NOTE | 2017-05-03 08:24 | HHI.CCPN ---
Subjective Remarks/Hospital Course Hospital Course: This is a 47yM who was originally admitted for acute pancreatitis and during this hospital admission found to have an acute aggressive non-hodgkin's lymphoma. he has had progressive shortness of breath secondary to bilateral pleural effusions and adenopathy. He rapid responsed today for worsening hypoxemia on a NRB and in severe respiratory distress. When I evaluated the patient on arrival to the [facility], he is in severe respiratory distress, unable to speak, RR > 40, spo2 92% on NRB, using accessory muscles. CXR without over fluid overload. additional information is unobtainable secondary to the clinical condition of the patient. Subjective: 05/03: TPA given overnight. started on heparin drip after. this morning, oligoaneuric with Cr rise to 3.3 this AM. also more hypotensive, although fio2 significantly improved to 45%. bilateral pleural effusions persist. echo yesterday with biventricular dysfunction. hgb stable. Objective Vital Signs Date Time Temp Pulse Resp B/P Pulse Ox O2 Delivery O2 Flow Rate FiO2 05/03/17 07:39 99 45 05/03/17 06:00 81 05/03/17 04:00 99.0 15 106/56 05/02/17 19:00 Mechanical Ventilator 05/02/17 08:40 15.00 Intake and Output 05/02/17 05/02/17 05/02/17 07:59 15:59 23:59 Intake Total 590 ml 71 ml 2432 ml Output Total 250 ml 40 ml 750 ml Balance 340 ml 31 ml 1682 ml Result Diagram: 05/03/17 0745 05/03/17 0745 Other Results Laboratory Tests Test 05/02/17 10:40 Blood Gas Puncture Site LT RADIAL Blood Gas Patient Temperature 98.6 Blood Gas HCO3 14 mmol/L (22-26) Blood Gas Base Excess -13.5 mmol/L (-2-2) Blood Gas Oxygen Saturation 93 % (90-100) Arterial Blood pH 7.15 (7.380-7.420) Arterial Blood Partial 41 mmHg (38-42) Pressure CO2 Arterial Blood Partial 109 mmHg Pressure O2 (61-120) Arterial Blood Oxygen Content 14.9 Vol % (12.0-20.0) Arterial Blood 0.3 % (0-4) Carboxyhemoglobin Arterial Blood Methemoglobin 1.3 % (0-2) Blood Gas Hemoglobin 11.2 G/DL (12.0-16.0) Oxygen Delivery Device VENTILATOR Blood Gas Ventilator Setting 500/14/10PEEP Blood Gas Inspired Oxygen 70 % Imaging Last Impressions Chest X-Ray 05/02/17 Signed Impressions: Service Date/Time: Tuesday, May 02, 2017 08:11 - CONCLUSION: There is mild improvement in aeration of the right lower lung, otherwise not significantly changed. Leonor Chavez MD Upper Extremity Ultrasound 04/30/17 Signed Impressions: Service Date/Time: April 12:25 - CONCLUSION: There some superficial thrombosis of a vein in the forearm. The deep venous system is patent. Large fluid collection left axilla. Significant soft tissue edema throughout the upper arm. Rinku Hillman MD Thoracentesis Ultrasound 04/30/17 0000 Signed Impressions: Service Date/Time: April 12:14 - CONCLUSION: Uncomplicated ultrasound guided thoracentesis. Tray Patel MD Port Line Insertion 04/27/17 Signed Impressions: Service Date/Time: Thursday, April 27, 2017 14:56 - CONCLUSION: 1. Bulky bilateral lower cervical lymphadenopathy. 2. Uncomplicated ultrasound and fluoroscopic guided implanted central venous port catheter placement as described in detail above. An 8 [place] port was placed. Liang Peralta MD Bone Biopsy CT 04/27/17 0000 Signed Impressions: Service Date/Time: Thursday, April 27, 2017 16:22 - CONCLUSION: 1. Uncomplicated CT guided bone marrow aspirate. 2. Uncomplicated CT guided bone marrow biopsy. Tray Patel MD Chest CT 04/25/17 0000 Signed Impressions: Service Date/Time: Wednesday, April 26, 2017 19:00 - CONCLUSION: The right pleural effusion is slightly larger on the left side has not changed. Extensive bulky adenopathy as before and malignancies such as lymphoma is suspected. Leonor Chavez MD Gall Bladder Ultrasound 04/22/17 0000 Signed Impressions: Service Date/Time: Saturday, April 22, 2017 07:35 - CONCLUSION: Small liver with focal abdomen only incompletely evaluated. Large right pleural effusion. effusion. Kirk Briceño MD FACR Abdomen CT 04/20/17 0000 Signed Impressions: Service Date/Time: Thursday, April 20, 2017 19:40 - CONCLUSION: Limited exam because of lack of intravenous contrast. Lymphoma is suspected. Pathological diagnosis could be obtained with ultrasound biopsy of the cervical, axillary or inguinal adenopathy. Kirk Briceño MD FACR Objective Remarks gen: middle-aged male, lying in bed, critically ill, intubated, sedated heent: perrl. mucous membranes moist neck: no jvd. trachea midline chest: decreased BS at the bases bilaterally. equal chest rise. PRVC, 45% fio2. cv: tachycardic rate, regular rhythm. sinus by tele. abd: soft, nontender, nondistended. no guarding. extr: trace peripheral edema. distal pulses 1+ neuro: RASS -3. w/d x 4. does not follow commands. sedated. Procedures 04/[address] excision biopsy 04/27- port placement A/P Assessment and Plan Assessment: 47yM with aggressive large B cell lymphoma, acute pancreatitis, now with submassive PE, acute cardiogenic shock, acute hypoxic respiratory failure, now oligoaneuric acute kidney injury secondary to shock. Will start inotropic therapy with epinephrine and inhaled flolan for RV support in the setting of worsening cardiogenic shock. His multiorgan failure is clinically worsening despite maximal therapy. Remains very critcially ill. Will be unable to add invasive monitoring until his TPA window x 24h is complete. will need invasive bp monitoring. Also will need drainage of his pleural effusions, although will hold off for now given cardiogenic shock. Plan by Systems: Neuro: -- propofol for goal RASS -2 -- repeat head CT 24h after TPA Respiratory: Acute Hypoxic Respiratory Failure Acute Submassive Pulmonary Embolism Bilateral pleural effusions, large, acute -- does not meet SBT criteria today while in shock -- vent bundle, hob at 30 degrees, nebs -- wean fio2 for goal spo2 > 90% -- start inhaled flolan at 50 ng/kg/min for RV support in the setting of acute PE Cardiovascular: Acute Submassive Pulmonary Embolism Right Heart Dysfunction Global severe left ventricular systolic dysfunction Cardiogenic Shock -- high risk for sudden cardiac s/p acute PE -- start epinephrine at 4mcg/min for inotropic support -- continue levophed for goal map > 65 mmHg -- 2d echo 05/02: EF 30-35%, RV dysfunction with dilation Renal: Acute oligoaneuric Kidney Injury -- likely secondary to cardiogenic shock -- may require renal replacement therapy, but likely not a good candidate given his overall medical course. will discuss with hematology about this as an option. will hold off on consulting nephrology for now. -- continue shepard with strict I/Os. FEN/GI: Hyperphosphatemia Hyperkalemia Acute protein calorie malnutrition- severe -- per the echo from yesterday, intravascular volume status is appropriate, but very likely will get volume overloaded today given severe oliguria. will minimize excess iv fluids -- NPO while in shock -- start PhosLo -- daily electrolytes Heme/ID Acute Large Cell B-cell lymphoma Pulmonary Embolism -- hematology/oncology on board -- chemo on hold secondary to his acute life-threatening illnesses. -- continue heparin drip, goal PTT 60 - 80. Endocrine: Hyperglycemia of Critical Illness -- SSI, q6h, med scale Prophylaxis: DVT: SCDs, heparin drip GI: protonix Lines: -- port -- shepard -- will need arterial access, but will wait 24h post TPA to place. Dispo: -- remain in the ICU. very critically ill and decompensating clinical course. Critical Care time: 78 minutes, exclusive of separately billable procedures. Andrés Burton MD May 03, 2017 08:24
[2017-05-03 08:42] LABS: CALCIUM-PROTEIN CORRECTED 7.4 MG/DL (8.5-10.1)
[2017-05-03] MEDS: NIFEdipine 90 MG SUSTAINED RELEASE TAB PO SCH (09:00)
[2017-05-03] MEDS: CALCIUM ACETATE 667 MG CAP PO SCH ×3 (09:42→18:01)
[2017-05-03] MEDS: PANTOPRAZOLE SOD 40 MG DELAYED RELEASE TAB PO SCH (09:42)
[2017-05-03] MEDS: DOCUSATE SODIUM 50 MG/SENNA 8.6 MG TAB PO SCH ×2 (09:42→19:42)
[2017-05-03] MEDS: ALLOPURINOL 300 MG TAB PO SCH (09:42)
[2017-05-03] MEDS: CHLORHEXIDINE 0.12% (ORAL KIT) 15 ML CUP MT SCH ×2 (09:43→19:43)
[2017-05-03] MEDS: EPOPROSTENOL NEB SOLUTION 50 NG/KG/MIN 100 ML NEB SCH ×4 (10:13→17:00)
[2017-05-03 11:03] LABS: APTT (PATIENT) 116.5 SEC (24.3-30.1)
--- NOTE | 2017-05-03 11:36 | PD.ONC.PN ---
Subjective Subjective Remarks Afebrile overnight. Patient intubated, sedated and on epi drip. Had TPA infusion overnight. Now on heparin drip. No obvious bleeding. +PVC's on tele. Objective Data Date Time Temp Pulse Resp B/P Pulse Ox O2 Delivery O2 Flow Rate FiO2 05/03/17 07:39 99 45 05/03/17 06:00 81 05/03/17 04:55 100 60 05/03/17 04:00 99.0 85 15 106/56 05/03/17 04:00 85 05/03/17 04:00 70 05/03/17 02:00 114 05/03/17 00:03 93 60 05/03/17 00:00 70 05/03/17 00:00 117 05/03/17 00:00 99.3 91 14 89/54 93 05/02/17 22:00 97 05/02/17 20:30 93 60 05/02/17 20:00 99.2 97 14 96/56 92 05/02/17 20:00 70 05/02/17 20:00 97 05/02/17 19:00 92 Mechanical Ventilator 80 05/02/17 18:00 104 05/02/17 17:00 111 22 112/67 97 05/02/17 16:50 95 100 05/02/17 16:00 70 05/02/17 16:00 98.8 111 16 91/53 94 05/02/17 16:00 111 05/02/17 15:46 98 60 05/02/17 15:00 111 16 96/59 98 05/02/17 14:00 109 18 90/56 95 05/02/17 14:00 109 05/02/17 13:00 114 14 87/53 93 05/02/17 12:44 94 70 05/02/17 12:00 70 05/02/17 12:00 98.4 117 44 96 05/02/17 12:00 117 Result Diagram: 05/03/17 0745 05/03/17 0745 Laboratory Results Laboratory Tests Test 05/02/17 05/03/17 05/03/17 05/03/17 12:00 02:15 07:45 09:00 Troponin I LESS THAN 0.02 NG/ML B-Type Natriuretic Peptide 88 PG/ML Activated Partial 32.2 SEC 116.5 SEC Thromboplast Time White Blood Count 10.2 TH/MM3 Red Blood Count 3.12 MIL/MM3 Hemoglobin 9.2 GM/DL Hematocrit 27.3 % Mean Corpuscular Volume 87.4 FL Mean Corpuscular Hemoglobin 29.4 PG Mean Corpuscular Hemoglobin 33.6 % Concent Red Cell Distribution Width 16.7 % Platelet Count 260 TH/MM3 Mean Platelet Volume 7.7 FL Neutrophils (%) (Auto) 95.3 % Lymphocytes (%) (Auto) 2.2 % Monocytes (%) (Auto) 2.3 % Eosinophils (%) (Auto) 0.0 % Basophils (%) (Auto) 0.2 % Neutrophils # (Auto) 9.7 TH/MM3 Lymphocytes # (Auto) 0.2 TH/MM3 Monocytes # (Auto) 0.2 TH/MM3 Eosinophils # (Auto) 0.0 TH/MM3 Basophils # (Auto) 0.0 TH/MM3 CBC Comment DIFF FINAL Differential Comment Sodium Level 134 MEQ/L Potassium Level 5.4 MEQ/L Chloride Level 98 MEQ/L Carbon Dioxide Level 23.5 MEQ/L Anion Gap 13 MEQ/L Blood Urea Nitrogen 39 MG/DL Creatinine 3.34 MG/DL Estimat Glomerular Filtration 24 ML/MIN Rate Random Glucose 157 MG/DL Calcium Level 6.8 MG/DL Protein Corrected Calcium 7.4 MG/DL Phosphorus Level 8.6 MG/DL Lactate Dehydrogenase 542 U/L Total Protein 5.9 GM/DL Culture Results Microbiology Date/Time Procedure Status Source Growth 04/30/17 12:55 Gram Stain - Final Complete Fluid Pleural Fluid 04/30/17 12:55 Body Fluid Culture - Final Complete Fluid Pleural Fluid NO GROWTH IN 72 HRS.--AEROBICALLY OR ... 04/30/17 12:55 Acid Fast Stain - Final Resulted Fluid Pleural Fluid NO ACID FAST BACILLI SEEN 04/30/17 12:55 Mycobacterial Culture Resulted Fluid Pleural Fluid Pending 04/30/17 12:55 Fungal Smear - Final Resulted Fluid Pleural Fluid NO FUNGAL ELEMENTS SEEN. 04/30/17 12:55 Fungal Culture Resulted Fluid Pleural Fluid Pending 05/02/17 10:25 Urine Culture Received Urine Catheterized Urine Pending 05/02/17 15:50 Gram Stain - Final Resulted Sputum Endotracheal 05/02/17 15:50 Sputum Culture Resulted Sputum Endotracheal Pending 05/02/17 16:00 Aerobic Blood Culture - Preliminary Resulted Blood Peripheral NO GROWTH IN 1 DAY 05/02/17 16:00 Anaerobic Blood Culture - Preliminary Resulted Blood Peripheral NO GROWTH IN 1 DAY 05/02/17 16:15 Aerobic Blood Culture - Preliminary Resulted Blood Peripheral NO GROWTH IN 1 DAY 05/02/17 16:15 Anaerobic Blood Culture - Preliminary Resulted Blood Peripheral NO GROWTH IN 1 DAY Imaging Studies Last 24 hours Impressions Chest X-Ray 05/03/17 0600 Signed Impressions: Service Date/Time: Wednesday, May 03, 2017 03:46 - CONCLUSION: Improving infiltrates. No Tacos Garcia MD Administered Medications Medications (Trade) Dose Ordered Sig/Shyla Route PRN Reason Start Time Stop Time Status Last Admin Dose Admin Sodium Chloride (NS Flush) 2 ml UNSCH PRN IV FLUSH FLUSH AFTER USING IV ACCESS 04/18/17 17:30 04/21/17 22:27 Senna/Docusate Sodium (Porsha-Colace) 1 tab BID PO 04/18/17 21:00 05/03/17 09:42 Heparin Sodium (Porcine) (Heparin Inj) 5,000 units Q8HR SQ 04/19/17 14:00 Hold 05/02/17 12:46 Hydralazine HCl (Apresoline Inj) 10 mg Q6HR PRN IV PUSH SBP>160, DBP>90 04/21/17 17:00 04/27/17 10:15 Allopurinol (Zyloprim) 300 mg DAILY PO 04/27/17 09:00 05/03/17 09:42 Nifedipine (Procardia Xl) 90 mg DAILY PO 04/28/17 09:00 05/01/17 09:00 Clonidine (Catapres) 0.1 mg Q6H PRN PO SBP>160, DBP>90 04/27/17 15:00 04/29/17 08:07 Ondansetron HCl (Zofran Inj) 4 mg Q6HR PRN IV PUSH NAUSEA OR VOMITING 04/30/17 11:30 04/30/17 22:17 Promethazine HCl (Phenergan Inj) 25 mg Q6H PRN IM NAUSEA OR VOMITING 04/30/17 11:30 05/01/17 13:27 Acetaminophen/ Hydrocodone Bitart ([place] 5-325 Mg) 1 tab Q6H PRN PO PAIN SCALE 1 TO 10 04/30/17 11:30 05/01/17 05:15 Prednisone (Deltasone) 115 mg Q12HR PO 05/01/17 11:00 05/05/17 21:01 Hold 05/02/17 20:08 Metoclopramide HCl (Reglan Inj) 10 mg Q8HR IV PUSH 05/01/17 15:30 05/03/17 04:20 Pantoprazole Sodium (Protonix) 40 mg DAILY PO 05/01/17 16:00 05/03/17 09:42 Chlorhexidine Gluconate 15 ml 15 ml BID@08,20 MT 05/02/17 20:00 05/03/17 09:43 Fentanyl Citrate 250 ml @ 0 mls/hr TITRATE IV 05/02/17 10:00 05/02/17 23:49 Propofol 100 ml @ 0 mls/hr TITRATE IV 05/02/17 10:00 05/03/17 04:20 Cefepime HCl/ Sodium Chloride (Maxipime Inj/NS Inj) 100 ml @ 200 mls/hr Q12H IV 05/02/17 15:00 05/03/17 02:33 Miscellaneous Information Patient in critical care unit? Ass... [id number] .XX 05/02/17 17:15 05/02/17 17:30 Chlorhexidine Gluconate 3 pack 3 pack DAILY@04 TOPICAL 05/03/17 04:00 05/07/17 04:01 05/03/17 04:00 Heparin Sodium/ Dextrose (Heparin-D5W Inj) 250 ml @ 0 mls/hr TITRATE IV 05/03/17 02:00 05/03/17 02:36 Calcium Acetate 2668 mg 2,668 mg TID PO 05/03/17 09:00 05/03/17 09:42 Epoprostenol Sodium/Sodium Chloride (Flolan (30,000 Ng/ml) Neb/NS Inj) 100 ml @ 8 mls/hr Q8H NEB 05/03/17 09:00 05/03/17 10:13 Objective Remarks GENERAL: Intubated sedated male supine in hospital bed. SKIN: Warm and dry. lines without bleeding. HEAD: Normocephalic. EYES: No injection or drainage. NECK: Supple, trachea midline. CARDIOVASCULAR: +S1/S2, tachy RESPIRATORY: anterior canas clear. on mechanical ventilation. GASTROINTESTINAL: Abdomen mildly distended. EXTREMITIES: No cyanosis. edema noted in extremities. NEUROLOGICAL: intubated, sedated Assessment/Plan Problem List: (1) Pulmonary emboli Status: Acute Plan: --CTA showed large PE --s/p tpa therapy on 05.02. now on heparin gtt. --echo showed right heart strain. (2) Non-Hodgkin lymphoma Status: Acute Plan: 05/03: patient too unstable for chemotherapy. will continue to monitor and plan for chemo once stable 05/02: large PE found, will place EPOCH on hold until stabilized 05/01: Rituxan given over slow infusion. 04/30: s/p right sided thoracentesis. 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 (4) Acute pancreatitis Status: Resolved Plan: --Resolving --on IVF and pain management per primary team (5) Cardiogenic shock Status: Acute Plan: --manager research managing Assessment 47y/o male admitted with pancreatitis, found to have NHL. Attending Statement Patient is on the ventilator and sedated Has large PE. Status post TPA, Now on heparin Hypotensive, On Epinephrine drip Chemotherapy is on hold Prognosis is poor Need thoracentesis, Male Infertility Specialist to follow The exam, history, and the medical decision-making described in the above note were completed with the assistance of the mid-level provider. I reviewed and agree with the findings presented. I attest that I had a [id number] encounter with the patient on the same day, and personally performed and documented my assessment and findings in the medical record. Problem Qualifiers (1) Non-Hodgkin lymphoma: (2) Acute pancreatitis: Qualified Code: K85.20 - Alcohol-induced acute pancreatitis, unspecified complication status Brenda Platt May 03, 2017 11:36 Ga Murphy MD May 03, 2017 22:01
[2017-05-03] MEDS ORDERED: LIDOCAINE HCL 1% 50 ML VIAL ONE (12:21)
--- NOTE | 2017-05-03 12:32 | HHI.IDPN ---
Subjective Subjective Remarks Patient is a 47-year-old male, initially presented to the hospital complaining of abdominal pain, nausea, and vomiting. He was found to have pancreatitis, and he also had elevated liver function tests. There is history of previous alcohol abuse. He was also found to have a right base pneumonia, and he was started on a Zithromax and Rocephin. Patient also had some abnormality on his urinalysis and was also being treated for UTI. His imaging study showed right hilar mass, and he had evidence on exam of supraclavicular lymph nodes. CT of the chest revealed pleural effusion, and extensive mediastinal and axillary lymphadenopathy. 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 Oncology has been following the patient, and patient was started on chemotherapy on April 30. Patient's pancreatitis has improved although he still has some abdominal pain. He got Rituxan on on May 08, and he is currently getting Decadron, cyclophosphamide, as well as etoposide /Doxorubicin/Vincristine. This morning he went into respiratory failure, and transferred to the ICU, and ended up getting intubated. Pulmonary started seeing the patient around April 29 and at that time he had shortness of breath. He had bilateral pleural effusion, and underwent thoracentesis on the right, and the fluid is exudative. Patient had CTA today, and it showed pulmonary embolism, as well as no infiltrates on the right side. He is afebrile. Currently on the vent, and on sedation. Notes reviewed Temps ok On pressors Received TPA yesterday, on heparin drip now Sedated on the vent, FiO2 at .45 Creatinine had gone up to 3+ CXR with some improvement Echo noted Getting chemo for NHL Antibiotics Cefepime Vanco x 1 dose Lines Port Past Medical History Previous tobacco and ETOH use Allergies: Coded Allergies: No Known Allergies (Unverified , 04/18/17) Objective . Vital Signs Date Time Temp Pulse Resp B/P Pulse Ox O2 Delivery O2 Flow Rate FiO2 05/03/17 11:43 98 45 05/03/17 07:39 99 45 05/03/17 06:00 81 05/03/17 04:55 100 60 05/03/17 04:00 99.0 85 15 106/56 05/03/17 04:00 85 05/03/17 04:00 70 05/03/17 02:00 114 05/03/17 00:03 93 60 05/03/17 00:00 70 05/03/17 00:00 117 05/03/17 00:00 99.3 91 14 89/54 93 05/02/17 22:00 97 05/02/17 20:30 93 60 05/02/17 20:00 99.2 97 14 96/56 92 05/02/17 20:00 70 05/02/17 20:00 97 05/02/17 19:00 92 Mechanical Ventilator 80 05/02/17 18:00 104 05/02/17 17:00 111 22 112/67 97 05/02/17 16:50 95 100 05/02/17 16:00 70 05/02/17 16:00 98.8 111 16 91/53 94 05/02/17 16:00 111 05/02/17 15:46 98 60 05/02/17 15:00 111 16 96/59 98 05/02/17 14:00 109 18 90/56 95 05/02/17 14:00 109 05/02/17 13:00 114 14 87/53 93 05/02/17 12:44 94 70 05/02/17 05/02/17 05/03/17 15:00 23:00 07:00 Intake Total 71 ml 2432 ml 646 ml Output Total 40 ml 750 ml 10 ml Balance 31 ml 1682 ml 636 ml IV Total 71 ml 1714 ml 307 ml Tube Feeding 598 ml 219 ml Other 120 ml 120 ml Output Urine Total 40 ml 750 ml 10 ml Tube Feeding Residual Discard 0 ml # Bowel Movements 0 0 1 . Laboratory Tests Test 05/02/17 05/03/17 05:23 07:45 White Blood Count 7.9 TH/MM3 10.2 TH/MM3 Red Blood Count 4.03 MIL/MM3 3.12 MIL/MM3 Hemoglobin 12.0 GM/DL 9.2 GM/DL Hematocrit 34.7 % 27.3 % Mean Corpuscular Volume 86.2 FL 87.4 FL Mean Corpuscular Hemoglobin 29.8 PG 29.4 PG Mean Corpuscular Hemoglobin 34.5 % 33.6 % Concent Red Cell Distribution Width 16.7 % 16.7 % Platelet Count 265 TH/MM3 260 TH/MM3 Mean Platelet Volume 8.1 FL 7.7 FL Neutrophils (%) (Auto) 92.4 % 95.3 % Lymphocytes (%) (Auto) 3.4 % 2.2 % Monocytes (%) (Auto) 4.1 % 2.3 % Eosinophils (%) (Auto) 0.0 % 0.0 % Basophils (%) (Auto) 0.1 % 0.2 % Neutrophils # (Auto) 7.3 TH/MM3 9.7 TH/MM3 Lymphocytes # (Auto) 0.3 TH/MM3 0.2 TH/MM3 Monocytes # (Auto) 0.3 TH/MM3 0.2 TH/MM3 Eosinophils # (Auto) 0.0 TH/MM3 0.0 TH/MM3 Basophils # (Auto) 0.0 TH/MM3 0.0 TH/MM3 CBC Comment DIFF FINAL DIFF FINAL Differential Comment Laboratory Tests Test 05/01/17 05/02/17 05/02/17 05/03/17 14:30 05:23 12:00 07:45 Sodium Level 137 MEQ/L 138 MEQ/L 134 MEQ/L Potassium Level 3.8 MEQ/L 3.8 MEQ/L 5.4 MEQ/L Chloride Level 101 MEQ/L 102 MEQ/L 98 MEQ/L Carbon Dioxide Level 22.1 MEQ/L 20.8 MEQ/L 23.5 MEQ/L Anion Gap 14 MEQ/L 15 MEQ/L 13 MEQ/L Blood Urea Nitrogen 17 MG/DL 16 MG/DL 39 MG/DL Creatinine 1.32 MG/DL 1.29 MG/DL 3.34 MG/DL Estimat Glomerular Filtration 70 ML/MIN 72 ML/MIN 24 ML/MIN Rate Random Glucose 98 MG/DL 64 MG/DL 157 MG/DL Calcium Level 8.7 MG/DL 8.1 MG/DL 6.8 MG/DL Uric Acid 4.5 MG/DL Phosphorus Level 3.8 MG/DL 8.6 MG/DL Lactate Dehydrogenase 717 U/L 542 U/L Troponin I LESS THAN 0.02 NG/ML B-Type Natriuretic Peptide 88 PG/ML Protein Corrected Calcium 7.4 MG/DL Total Protein 5.9 GM/DL Microbiology Date/Time Procedure Status Source Growth 04/30/17 12:55 Gram Stain - Final Complete Fluid Pleural Fluid 04/30/17 12:55 Body Fluid Culture - Final Complete Fluid Pleural Fluid NO GROWTH IN 72 HRS.--AEROBICALLY OR ... 04/30/17 12:55 Acid Fast Stain - Final Resulted Fluid Pleural Fluid NO ACID FAST BACILLI SEEN 04/30/17 12:55 Mycobacterial Culture Resulted Fluid Pleural Fluid Pending 04/30/17 12:55 Fungal Smear - Final Resulted Fluid Pleural Fluid NO FUNGAL ELEMENTS SEEN. 04/30/17 12:55 Fungal Culture Resulted Fluid Pleural Fluid Pending 05/02/17 10:25 Urine Culture - Preliminary Resulted Urine Catheterized Urine NO GROWTH IN 24 HOURS. 05/02/17 15:50 Gram Stain - Final Resulted Sputum Endotracheal 05/02/17 15:50 Sputum Culture Resulted Sputum Endotracheal Pending 05/02/17 16:00 Aerobic Blood Culture - Preliminary Resulted Blood Peripheral NO GROWTH IN 1 DAY 05/02/17 16:00 Anaerobic Blood Culture - Preliminary Resulted Blood Peripheral NO GROWTH IN 1 DAY 05/02/17 16:15 Aerobic Blood Culture - Preliminary Resulted Blood Peripheral NO GROWTH IN 1 DAY 05/02/17 16:15 Anaerobic Blood Culture - Preliminary Resulted Blood Peripheral NO GROWTH IN 1 DAY Imaging Last Impressions Chest X-Ray 05/03/17 0600 Signed Impressions: Service Date/Time: Wednesday, May 03, 2017 03:46 - CONCLUSION: Improving infiltrates. No Tacos Garcia MD Head CT 05/02/17 0000 Signed Impressions: Service Date/Time: Tuesday, May 02, 2017 16:45 - CONCLUSION: No acute intracranial disease. Tray Patel MD CT Angiography 05/02/17 0000 Signed Impressions: Service Date/Time: Tuesday, May 02, 2017 11:10 - CONCLUSION: 1. There is pulmonary embolus in the right pulmonary artery, right upper lobe and lower lobe branches. 2. Resorption of previously seen gas in the left axilla with fluid collection at this site with postprocedural change and possibly postprocedural hemorrhage not significantly changed in size. 3. Interval development of right lung airspace process may represent postobstructive pneumonia and there is mucus within the trachea not present yesterday. 4. Right pleural effusion is smaller and left pleural effusion is larger. 5. No change in bulky adenopathy. Leonor Chavez MD Upper Extremity Ultrasound 04/30/17 0000 Signed Impressions: Service Date/Time: April 12:25 - CONCLUSION: There some superficial thrombosis of a vein in the forearm. The deep venous system is patent. Large fluid collection left axilla. Significant soft tissue edema throughout the upper arm. Rinku Hillman MD Thoracentesis Ultrasound 04/30/17 0000 Signed Impressions: Service Date/Time: April 12:14 - CONCLUSION: Uncomplicated ultrasound guided thoracentesis. Tray Patel MD Port Line Insertion 04/27/17 0000 Signed Impressions: Service Date/Time: Thursday, April 27, 2017 14:56 - CONCLUSION: 1. Bulky bilateral lower cervical lymphadenopathy. 2. Uncomplicated ultrasound and fluoroscopic guided implanted central venous port catheter placement as described in detail above. An 8 [place] port was placed. Liang Peralta MD Bone Biopsy CT 04/27/17 0000 Signed Impressions: Service Date/Time: Thursday, April 27, 2017 16:22 - CONCLUSION: 1. Uncomplicated CT guided bone marrow aspirate. 2. Uncomplicated CT guided bone marrow biopsy. Tray Patel MD Chest CT 04/25/17 0000 Signed Impressions: Service Date/Time: Wednesday, April 26, 2017 19:00 - CONCLUSION: The right pleural effusion is slightly larger on the left side has not changed. Extensive bulky adenopathy as before and malignancies such as lymphoma is suspected. Leonor Chavez MD Gall Bladder Ultrasound 04/22/17 0000 Signed Impressions: Service Date/Time: Saturday, April 22, 2017 07:35 - CONCLUSION: Small liver with focal abdomen only incompletely evaluated. Large right pleural effusion. effusion. Kirk Briceño MD FACR Abdomen CT 04/20/17 0000 Signed Impressions: Service Date/Time: Thursday, April 20, 2017 19:40 - CONCLUSION: Limited exam because of lack of intravenous contrast. Lymphoma is suspected. Pathological diagnosis could be obtained with ultrasound biopsy of the cervical, axillary or inguinal adenopathy. Kirk Briceño MD FACR Physical Exam GENERAL: sedated on the vent, not in respiratory distress. SKIN: Warm and dry. No generalized rash, no ecchymoses and no evidence of embolic lesions. HEAD: Atraumatic. Normocephalic. No temporal wasting, or tenderness. EYES: [place] conjunctiva. No petechia or hemorrhage. Pupils equal, round and reactive to light. Has dirty sclera. No injection or drainage. EARS, NOSE AND THROAT: Nose without bleeding or purulent nasal discharge. Mucous membranes moist. Orally intubated. Has poor dentition. NECK: Trachea midline. Supple and not tender, no meningeal signs. Has significant lymphadenopathy. CARDIOVASCULAR: Regular rate and rhythm. No murmurs, rubs or gallops heard RESPIRATORY: Coarse breath sounds bilaterally, decreased at the bases, worse on the right than on the left. The port is in the right upper chest, currently accessed, no redness or drainage noted. ABDOMEN: Distended, hypoactive bowel sounds, tympanitis, no reaction to palpation. Has inguinal LN present. EXTREMITIES: No clubbing, cyanosis, or edema. No joint effusion. Warm. Has very dry skin both feet. NEUROLOGICAL: Sedated. No babinski, no clonus PSYCHIATRIC: Unable to assess LINE: Port no evidence of infection. Multiple PIV no evidence of infection : Singh in place, urine looks clear Assessment & Plan Remarks IMPRESSION Respiratory failure, with multiple PE on R, has new infiltrates, ?PNA, ? infarct - PE on R and infiltrates on R Has Tomi effusions, tap is exudative, ?lymphoma New NHL, started on chemo 04/30 Pancreatitis, and elevated LFT likely due to ETOH Acute renal failure, ?sepsis, ?contrast RECOMMENDATION Continue Cefepime Follow C/S and adjust Abx Monitor progress Getting chemo Maggy Solis MD May 03, 2017 12:32
[2017-05-03 13:50] LABS: APTT (PATIENT) 60.4 SEC (24.3-30.1)
[2017-05-03] MEDS: EPINEPHrine (1:1000) INJ 2 MG in DEXTROSE 5% IN WATER INJ 248 ML IV SCH ×2 (17:09)
--- NOTE | 2017-05-03 17:37 | RADRPT ---
EXAM DATE/TIME: 05/03/2017 17:22 [facility] COMPARISON: CT BRAIN W/O CONTRAST, May 02, 2017, 16:45. INDICATIONS : Stroke; 24 hours after activase infusion. RADIATION DOSE: 43.95 CTDIvol (mGy) MEDICAL HISTORY : Lymphoma. Pancreatitis. SURGICAL HISTORY : None. ENCOUNTER: Initial ACUITY: 1 day PAIN SCALE: Non-responsive LOCATION: cranial TECHNIQUE: Multiple contiguous axial images were obtained of the head. Using automated exposure control and adj ustment of the mA and/or kV according to patient size, radiation dose was kept as low as reasonably a chievable to obtain optimal diagnostic quality images. DICOM format image data is available electro nically for review and comparison. FINDINGS: CEREBRUM: The ventricles are normal for age. No evidence of midline shift, mass lesion, hemorrhage or acute in farction. No extra-axial fluid collections are seen. POSTERIOR FOSSA: The cerebellum and brainstem are intact. The 4th ventricle is midline. The cerebellopontine angle i s unremarkable. EXTRACRANIAL: The visualized portion of the orbits is intact. SKULL: The calvaria is intact. No evidence of skull fracture. CONCLUSION: No acute intracranial disease. No hemorrhage seen. Tray Patel MD on May 03, 2017 at 17:35 Board Certified Radiologist. This report was verified electronically.
[2017-05-03 20:01] LABS: APTT (PATIENT) 40.1 SEC (24.3-30.1)
[2017-05-03] MEDS: fentaNYL DRIP 250 ML IV SCH (22:30)
[2017-05-04] VITALS (18 sets, daily range): BP systolic 112–121; BP diastolic 55–58; PULSE 71–91; RESP 14–29; TEMP 97.7–99.3; O2SAT 95–100
[2017-05-04] MEDS: EPOPROSTENOL NEB SOLUTION 50 NG/KG/MIN 100 ML NEB SCH ×4 (00:17→08:16)
[2017-05-04] MEDS: CEFEPIME INJ 2,000 MG in SODIUM CHLORIDE 0.9% INJ 100 ML IV SCH ×2 (01:37→14:35)
[2017-05-04] MEDS: EPINEPHrine (1:1000) INJ 2 MG in DEXTROSE 5% IN WATER INJ 248 ML IV SCH ×4 (01:47→09:43)
[2017-05-04] MEDS: RESP: ALBUTEROL 2.5 MG/IPRATROPIUM 0.5 MG NEB (SCH) INH ×4 (03:49→19:45)
[2017-05-04] MEDS: CHLORHEXIDINE GLUCONATE 2 % 1 PACK (2 CLOTHS)(taper/protocol) TOPICAL SCH (04:00)
[2017-05-04 05:37] LABS: AUTOMATED NEUTROPHIL # 12.2 TH/MM3 (1.8-7.7); BASOPHIL % 0.1 % (0.0-2.0); HEMATOCRIT 23.5 % (39.0-51.0); HEMO FLAGS DIFF FINAL; LYMPHOCYTE # 0.3 TH/MM3 (1.0-4.8); MEAN CELL VOLUME 86.4 FL (80.0-100.0); MEAN CORPUSCULAR HEMOGLOBIN 29.3 PG (27.0-34.0); MEAN CORPUSCULAR HGB CONC 33.9 % (32.0-36.0); NEUT % 92.9 % (16.0-70.0); PLATELET COUNT 270 TH/MM3 (150-450); RED BLOOD COUNT 2.72 MIL/MM3 (4.50-5.90); RED CELL DISTRIBUTION WIDTH 17.2 % (11.6-17.2); WHITE BLOOD COUNT 13.2 TH/MM3 (4.0-11.0)
[2017-05-04] MEDS: METOCLOPRAMIDE HCL 10 MG/2 ML VIAL IV PUSH SCH ×3 (05:43→22:43)
[2017-05-04] MEDS: INSULIN NovoLIN REGULAR SUPPLEMENTAL SCALE SQ SCH ×5 (05:45→23:29)
[2017-05-04 05:58] LABS: BICARBONATE 22.7 MEQ/L (21.0-32.0); POTASSIUM 4.2 MEQ/L (3.5-5.1)
[2017-05-04 06:19] LABS: CALCIUM-PROTEIN CORRECTED 7.4 MG/DL (8.5-10.1)
[2017-05-04] MEDS: fentaNYL DRIP 250 ML IV SCH ×2 (06:52→20:09)
[2017-05-04] MEDS: PANTOPRAZOLE SOD 40 MG DELAYED RELEASE TAB PO SCH (08:15)
[2017-05-04] MEDS: DOCUSATE SODIUM 50 MG/SENNA 8.6 MG TAB PO SCH ×2 (08:15→20:09)
[2017-05-04] MEDS: CALCIUM ACETATE 667 MG CAP PO SCH ×3 (08:16→18:06)
[2017-05-04] MEDS: NIFEdipine 90 MG SUSTAINED RELEASE TAB PO SCH (08:16)
[2017-05-04] MEDS: ALLOPURINOL 300 MG TAB PO SCH (08:16)
[2017-05-04] MEDS: CHLORHEXIDINE 0.12% (ORAL KIT) 15 ML CUP MT SCH ×2 (08:17→22:43)
[2017-05-04] MEDS: PROPOFOL 1000 MG/100 ML INJ 100 ML IV SCH ×3 (08:17→23:25)
[2017-05-04] MEDS: HEPARIN-D5W 25,000 U/250 ML 250 ML IV SCH (10:04)
[2017-05-04] MEDS: DEXAMETHASONE INJ 20 MG, GRANISETRON INJ 1 MG in SODIUM CHLORIDE 0.9% INJ 50 ML IV SCH (11:30)
--- NOTE | 2017-05-04 13:23 | HHI.HCPN ---
Reason for visit a. To assist with evaluation and management of symptoms including: Debility. b. To assist medical decision maker(s) with: better understanding of current medical conditions; weighing benefits/burdens of medical treatment options; making medical treatment decisions. . Subjective/Interval History Mr. Werner is a 47-year-old male with no significant medical history who presented to the emergency room on 04/18/17 for evaluation of nausea, vomiting and diarrhea for the previous 2 weeks. Patient was admitted for further management of acute pancreatitis and dehydration. CT chest and abdomen revealing diffuse lymphadenopathy. Oncology consulted, lymph node pathology consistent with aggressive CD10 positive B-cell non-Hodgkin lymphoma. Palliative care was consulted for assistance with goals of care and to determine healthcare surrogate decision maker. Clinical course complicated by large pulmonary embolism post TPA, acute hypoxemic respiratory failure required intubation and mechanical ventilation on 05/02/17 and cardiogenic shock requiring inotropic therapy. Echocardiogram revealing RV dysfunction, EF 30-40%, mild to moderate tricuspid valve regurgitation. ID, Dr. Solis consulted on 05/02/17, patient was started on antibiotics. Patient with worsening kidney failure, creatinine 3.3 and persistent bilateral pleural effusions. Max temperature 99.3 today. Oxygen saturation in the high 90s, FiO2 40%. Patient seen in ICU. Remains orally intubated on mechanical ventilation. Opening eyes to tactile stimuli, not tracking, following commands or attempting to communicate. Currently sedated on propofol and fentanyl. Spoke with patient 's mother Oxana Seals and pt's sister France Garcia. Medical update provided. Shared concerns of patient's clinical status to include cardiogenic shock, acute hypoxemic respiratory failure and worsening kidney failure. Discussed that patient is at a very high risk for sudden cardiac and additional complications. Goals of care remains unchanged, family electing to continue aggressive management to include full code. Family verbalized being hopeful but realistic regarding patient's clinical condition. Spiritual services offered and accepted. Referral made. Case discussed with SUMMER Leroy. Palliative care will continue to follow-up for family support. . Family/friend interactions See interval note. . Advance Directives Living Will: Never completed Health Care Surrogate: Copy in medical record Durable Power of Logistics Manager: Never completed Advance Directive Specifics Date completed: 04/29/17. . Health Care Surrogate(s): HSC/mother Oxana Seals. Alternate surrogate -sister France Garcia. . Documented care wishes: No living will completed. . Significant change in goals: Goals of care remain unchanged. Aggressive management including full code. . Objective Vital Signs Date Time Temp Pulse Resp B/P Pulse Ox O2 Delivery O2 Flow Rate FiO2 05/04/17 11:57 97 40 05/04/17 10:00 87 05/04/17 08:00 90 05/04/17 08:00 99.3 90 29 121/58 100 05/04/17 08:00 40 05/04/17 07:33 100 45 05/04/17 06:00 87 05/04/17 04:06 95 45 05/04/17 04:00 86 05/04/17 04:00 45 05/04/17 04:00 99.1 90 15 116/56 05/04/17 02:00 91 05/04/17 01:40 97 45 05/04/17 00:00 99.0 88 14 115/55 97 05/04/17 00:00 45 05/04/17 00:00 88 05/03/17 22:19 95 45 05/03/17 22:00 87 05/03/17 20:01 96 45 05/03/17 20:00 97.7 92 14 108/56 96 05/03/17 20:00 45 05/03/17 20:00 92 05/03/17 19:00 96 Mechanical Ventilator 45 05/03/17 18:00 92 05/03/17 17:00 100 100 05/03/17 16:00 98.2 91 14 111/55 100 05/03/17 16:00 45 05/03/17 16:00 91 05/03/17 15:55 97 45 05/03/17 14:00 91 Physical Exam CONSTITUTIONAL/GENERAL: This is an adequately nourished male in no acute distress. Orally intubated on mechanical ventilation. TUBES/LINES/DRAINS: ETT, OG, Mediport right chest, PIV's, Singh catheter, SCDs, soft wrist restraints. SKIN: No jaundice, rashes, or lesions. Ecchymoses on upper extremities. No wounds seen anteriorly. Skin temperature appropriate. Not diaphoretic. HEAD: Atraumatic. Normocephalic. EYES: Pupils equal and round and reactive. No scleral icterus. No injection or drainage. ENT: Unable to evaluate hearing secondary to clinical condition, intubated. Nose without bleeding or purulent drainage. Moist oral mucosa. Poor dentition. NECK: Trachea midline. Supple, nontender. CARDIOVASCULAR: Regular rate and rhythm without murmurs, gallops, or rubs. Peripheral pulses symmetric. RESPIRATORY/CHEST: Symmetric, coarse breath sounds bilaterally. Orally intubated on mechanical ventilation. GASTROINTESTINAL: Abdomen distended, round. Bowel sounds present. GENITOURINARY: Without palpable bladder distension. MUSCULOSKELETAL: Extremities without clubbing, cyanosis, or edema. No mottling or clubbing. NEUROLOGICAL: Sedated. Opening eyes to tactile stimuli, not tracking or following commands. PSYCHIATRIC: Appears calm. . Diagnostic Tests Laboratory Laboratory Tests Test 05/01/17 05/02/17 05/02/17 05/02/17 14:30 05:23 09:28 10:25 Sodium Level 137 MEQ/L 138 MEQ/L (136-145) (136-145) Potassium Level 3.8 MEQ/L 3.8 MEQ/L (3.5-5.1) (3.5-5.1) Chloride Level 101 MEQ/L 102 MEQ/L (98-107) (98-107) Carbon Dioxide Level 22.1 MEQ/L 20.8 MEQ/L (21.0-32.0) (21.0-32.0) Anion Gap 14 MEQ/L (5-15) 15 MEQ/L (5-15) Blood Urea Nitrogen 17 MG/DL (7-18) 16 MG/DL (7-18) Creatinine 1.32 MG/DL 1.29 MG/DL (0.60-1.30) (0.60-1.30) Estimat Glomerular Filtration 70 ML/MIN (>89) 72 ML/MIN (>89) Rate Random Glucose 98 MG/DL 64 MG/DL (74-106) (74-106) Calcium Level 8.7 MG/DL 8.1 MG/DL (8.5-10.1) (8.5-10.1) White Blood Count 7.9 TH/MM3 (4.0-11.0) Red Blood Count 4.03 MIL/MM3 (4.50-5.90) Hemoglobin 12.0 GM/DL (13.0-17.0) Hematocrit 34.7 % (39.0-51.0) Mean Corpuscular Volume 86.2 FL (80.0-100.0) Mean Corpuscular Hemoglobin 29.8 PG (27.0-34.0) Mean Corpuscular Hemoglobin 34.5 % Concent (32.0-36.0) Red Cell Distribution Width 16.7 % (11.6-17.2) Platelet Count 265 TH/MM3 (150-450) Mean Platelet Volume 8.1 FL (7.0-11.0) Neutrophils (%) (Auto) 92.4 % (16.0-70.0) Lymphocytes (%) (Auto) 3.4 % (9.0-44.0) Monocytes (%) (Auto) 4.1 % (0.0-8.0) Eosinophils (%) (Auto) 0.0 % (0.0-4.0) Basophils (%) (Auto) 0.1 % (0.0-2.0) Neutrophils # (Auto) 7.3 TH/MM3 (1.8-7.7) Lymphocytes # (Auto) 0.3 TH/MM3 (1.0-4.8) Monocytes # (Auto) 0.3 TH/MM3 (0-0.9) Eosinophils # (Auto) 0.0 TH/MM3 (0-0.4) Basophils # (Auto) 0.0 TH/MM3 (0-0.2) CBC Comment DIFF FINAL Differential Comment Uric Acid 4.5 MG/DL (2.6-7.2) Phosphorus Level 3.8 MG/DL (2.5-4.9) Lactate Dehydrogenase 717 U/L (87-241) Nasal Screen MRSA (PCR) MRSA NOT DETECTED (NOT DETECT) Urine Color YELLOW (YELLW/STRAW) Urine Turbidity HAZY (CLEAR) Urine pH 5.0 (5.0-8.5) Urine Specific [place] 1.015 (1.002-1.035) Urine Protein 30 mg/dL (NEG-TRACE) Urine Glucose (UA) NEG mg/dL (NEG) Urine Ketones NEG mg/dL (NEG) Urine Occult Blood TRACE (NEG) Urine Nitrite NEG (NEG) Urine Bilirubin NEG (NEG) Urine Urobilinogen LESS THAN 2.0 MG/DL (LESS THAN 2.0) Urine Leukocyte Esterase NEG (NEG) Urine RBC 2 /hpf (0-3) Urine WBC 3 /hpf (0-5) Urine Squamous Epithelial <1 /hpf (0-5) Cells Urine Bacteria RARE /hpf (NONE) Urine Hyaline Casts 16 /lpf (RARE) Urine Granular Casts 1 /lpf (NONE) Urine Mucus FEW /lpf (OCC) Microscopic Urinalysis Comment CATH-CULTURE IND Test 05/02/17 05/02/17 05/03/17 05/03/17 10:40 12:00 02:15 07:45 Blood Gas Puncture Site LT RADIAL Blood Gas Patient Temperature 98.6 Blood Gas HCO3 14 mmol/L (22-26) Blood Gas Base Excess -13.5 mmol/L (-2-2) Blood Gas Oxygen Saturation 93 % (90-100) Arterial Blood pH 7.15 (7.380-7.420) Arterial Blood Partial 41 mmHg (38-42) Pressure CO2 Arterial Blood Partial 109 mmHg Pressure O2 (61-120) Arterial Blood Oxygen Content 14.9 Vol % (12.0-20.0) Arterial Blood 0.3 % (0-4) Carboxyhemoglobin Arterial Blood Methemoglobin 1.3 % (0-2) Blood Gas Hemoglobin 11.2 G/DL (12.0-16.0) Oxygen Delivery Device VENTILATOR Blood Gas Ventilator Setting 500/14/10PEEP Blood Gas Inspired Oxygen 70 % Troponin I LESS THAN 0.02 NG/ML (0.02-0.05) B-Type Natriuretic Peptide 88 PG/ML (0-100) Activated Partial 32.2 SEC Thromboplast Time (24.3-30.1) White Blood Count 10.2 TH/MM3 (4.0-11.0) Red Blood Count 3.12 MIL/MM3 (4.50-5.90) Hemoglobin 9.2 GM/DL (13.0-17.0) Hematocrit 27.3 % (39.0-51.0) Mean Corpuscular Volume 87.4 FL (80.0-100.0) Mean Corpuscular Hemoglobin 29.4 PG (27.0-34.0) Mean Corpuscular Hemoglobin 33.6 % Concent (32.0-36.0) Red Cell Distribution Width 16.7 % (11.6-17.2) Platelet Count 260 TH/MM3 (150-450) Mean Platelet Volume 7.7 FL (7.0-11.0) Neutrophils (%) (Auto) 95.3 % (16.0-70.0) Lymphocytes (%) (Auto) 2.2 % (9.0-44.0) Monocytes (%) (Auto) 2.3 % (0.0-8.0) Eosinophils (%) (Auto) 0.0 % (0.0-4.0) Basophils (%) (Auto) 0.2 % (0.0-2.0) Neutrophils # (Auto) 9.7 TH/MM3 (1.8-7.7) Lymphocytes # (Auto) 0.2 TH/MM3 (1.0-4.8) Monocytes # (Auto) 0.2 TH/MM3 (0-0.9) Eosinophils # (Auto) 0.0 TH/MM3 (0-0.4) Basophils # (Auto) 0.0 TH/MM3 (0-0.2) CBC Comment DIFF FINAL Differential Comment Sodium Level 134 MEQ/L (136-145) Potassium Level 5.4 MEQ/L (3.5-5.1) Chloride Level 98 MEQ/L (98-107) Carbon Dioxide Level 23.5 MEQ/L (21.0-32.0) Anion Gap 13 MEQ/L (5-15) Blood Urea Nitrogen 39 MG/DL (7-18) Creatinine 3.34 MG/DL (0.60-1.30) Estimat Glomerular Filtration 24 ML/MIN (>89) Rate Random Glucose 157 MG/DL (74-106) Calcium Level 6.8 MG/DL (8.5-10.1) Protein Corrected Calcium 7.4 MG/DL (8.5-10.1) Phosphorus Level 8.6 MG/DL (2.5-4.9) Lactate Dehydrogenase 542 U/L (87-241) Total Protein 5.9 GM/DL (6.4-8.2) Test 05/03/17 05/03/17 05/03/17 05/04/17 09:00 13:00 19:30 04:50 Activated Partial 116.5 SEC 60.4 SEC 40.1 SEC 28.0 SEC Thromboplast Time (24.3-30.1) (24.3-30.1) (24.3-30.1) (24.3-30.1) White Blood Count 13.2 TH/MM3 (4.0-11.0) Red Blood Count 2.72 MIL/MM3 (4.50-5.90) Hemoglobin 8.0 GM/DL (13.0-17.0) Hematocrit 23.5 % (39.0-51.0) Mean Corpuscular Volume 86.4 FL (80.0-100.0) Mean Corpuscular Hemoglobin 29.3 PG (27.0-34.0) Mean Corpuscular Hemoglobin 33.9 % Concent (32.0-36.0) Red Cell Distribution Width 17.2 % (11.6-17.2) Platelet Count 270 TH/MM3 (150-450) Mean Platelet Volume 7.2 FL (7.0-11.0) Neutrophils (%) (Auto) 92.9 % (16.0-70.0) Lymphocytes (%) (Auto) 2.0 % (9.0-44.0) Monocytes (%) (Auto) 5.0 % (0.0-8.0) Eosinophils (%) (Auto) 0.0 % (0.0-4.0) Basophils (%) (Auto) 0.1 % (0.0-2.0) Neutrophils # (Auto) 12.2 TH/MM3 (1.8-7.7) Lymphocytes # (Auto) 0.3 TH/MM3 (1.0-4.8) Monocytes # (Auto) 0.7 TH/MM3 (0-0.9) Eosinophils # (Auto) 0.0 TH/MM3 (0-0.4) Basophils # (Auto) 0.0 TH/MM3 (0-0.2) CBC Comment DIFF FINAL Differential Comment Sodium Level 132 MEQ/L (136-145) Potassium Level 4.2 MEQ/L (3.5-5.1) Chloride Level 96 MEQ/L (98-107) Carbon Dioxide Level 22.7 MEQ/L (21.0-32.0) Anion Gap 13 MEQ/L (5-15) Blood Urea Nitrogen 59 MG/DL (7-18) Creatinine 4.87 MG/DL (0.60-1.30) Estimat Glomerular Filtration 15 ML/MIN (>89) Rate Random Glucose 203 MG/DL (74-106) Calcium Level 6.9 MG/DL (8.5-10.1) Protein Corrected Calcium 7.4 MG/DL (8.5-10.1) Phosphorus Level 6.6 MG/DL (2.5-4.9) Lactate Dehydrogenase 554 U/L (87-241) Total Protein 6.1 GM/DL (6.4-8.2) Result Diagram: 05/04/17 0450 05/04/17 0450 Microbiology Microbiology Date/Time Procedure Status Source Growth 05/02/17 10:25 Urine Culture - Final Complete Urine Catheterized Urine NO GROWTH IN 48 HOURS. 05/02/17 15:50 Gram Stain - Final Complete Sputum Endotracheal 05/02/17 15:50 Sputum Culture - Final Complete Sputum Endotracheal HEAVY GROWTH NORMAL RESPIRATORY DEONTE 05/02/17 16:00 Aerobic Blood Culture - Preliminary Resulted Blood Peripheral NO GROWTH IN 2 DAYS 05/02/17 16:00 Anaerobic Blood Culture - Preliminary Resulted Blood Peripheral NO GROWTH IN 2 DAYS 05/02/17 16:15 Aerobic Blood Culture - Preliminary Resulted Blood Peripheral NO GROWTH IN 2 DAYS 05/02/17 16:15 Anaerobic Blood Culture - Preliminary Resulted Blood Peripheral NO GROWTH IN 2 DAYS Procedures * 05/02/17 -intubation * 04/22/17 -axillary lymph node biopsy * 04/27/17 -bone marrow biopsy * 04/28/17 -MediPort placement . Assessment and Plan Disease Oriented Problem List: (1) Non-Hodgkin lymphoma (2) Acute pancreatitis (3) ALDO (acute kidney injury) Symptom Scale: (1) Shortness of breath 0-10 Scale: Unable to quantify Comment: Bilateral pleural effusions/acute hypoxemic respiratory failure. Orally intubated on mechanical ventilation. (2) Debility 0-10 Scale: Unable to quantify Pertinent Non-Medical Issues Psychosocial: Single, unemployed. Has 8 children. Highest level of education is eighth grade. No service. Spiritual: No orthodox affiliations. Legal: Designation of healthcare surrogate completed. Ethical issues impacting care: No ethical issues identified. Patient participating in medical decision-making. . Important Contacts HCS/mother Nu Seals . Alt [facility]/sister France Garcia . . Prognosis Mr. Werner is a 47-year-old male with no significant medical history who presented to the emergency room on 04/18/17 for evaluation of nausea, vomiting and diarrhea for the previous 2 weeks. Lymph node pathology consistent with aggressive CD10 positive B-cell non-Hodgkin lymphoma. Bone marrow biopsy and HIV testing results still pending. Pending results of additional testing for prognostication at this time. Patient to start chemotherapy. . Code Status: Full Code Plan * CODE STATUS: FULL code. * HEALTHCARE DECISION-MAKING: Patient unable to participate in medical decision- making secondary to clinical condition, orally intubated on mechanical ventilation -Sedated. Designation of healthcare surrogate completed, patient designated his mother Oxana Seals as HCS and alt HCS sister France Garcia. * GOALS OF CARE: pt's mother acting as HCS, electing to continue aggressive management to include full code. 05/04/17 -Spoke with patient's mother Oxana Seals/HCS and pt's sister France Garcia/alt HCS. Medical update provided. Shared concerns of patient's clinical status to include cardiogenic shock, acute hypoxemic respiratory failure and worsening kidney failure. Discussed that patient is at a very high risk for sudden cardiac and additional complications. Family verbalized being hopeful but realistic regarding patient' s clinical condition. Family receptive to palliative care follow-ups. * SYMPTOMS: = Shortness of breath, secondary to bilateral pleural effusions/ acute hypoxemic respiratory failure. Currently intubated on mechanical ventilation. Pulmonology following. = Debility, secondary to burden of disease , acute illness, prolonged hospitalization. * Case discussed with bedside SUMMER Leroy. * Spiritual services offered and accepted. Referral made. * Palliative care contact information has been provided to patient and family. * Palliative care will continue to follow-up for further clarifications of goals of care, provide emotional support as patient's clinical course continues to evolve. . Time Spent Total Floor Time (mins): 36 (Total time to include review medical records, physical exam, goals of care conversation with patient's family and case discussion with bedside SUMMER Leroy.) >50% Counseling/Coord of Care: Yes Attestation To help prompt me to consider important information that might be impacting today's encounter and assessment, information from prior notes written by myself or my colleagues may have been "brought forward" into today's note. My signature on this note, however, is an attestation that I personally performed the exam, history, and/or decision-making noted today, and, unless otherwise indicated, the interactions with patient, family, and staff as well as the review of records all occurred today. I also attest that the listed assessment and stated plan reflect my best clinical judgment today based on the combination of historical information, prior notes, and today's exam/ interactions. When time spent is documented, it refers only to time spent today by the signer, or if indicated, combined time spent today by collaborating physician/nurse practitioner. Demetrice Brody May 04, 2017 13:23
[2017-05-04] MEDS ORDERED: SODIUM CHLORID 0.9% IV ONE (14:00)
[2017-05-04] MEDS ORDERED: CYCLOPHOSPHAMIDE IV ONE (14:00)
[2017-05-04 14:02] LABS: APTT (PATIENT) 60.9 SEC (24.3-30.1)
--- NOTE | 2017-05-04 14:04 | HHI.IDPN ---
Subjective Subjective Remarks Patient is a 47-year-old male, initially presented to the hospital complaining of abdominal pain, nausea, and vomiting. He was found to have pancreatitis, and he also had elevated liver function tests. There is history of previous alcohol abuse. He was also found to have a right base pneumonia, and he was started on a Zithromax and Rocephin. Patient also had some abnormality on his urinalysis and was also being treated for UTI. His imaging study showed right hilar mass, and he had evidence on exam of supraclavicular lymph nodes. CT of the chest revealed pleural effusion, and extensive mediastinal and axillary lymphadenopathy. 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 Oncology has been following the patient, and patient was started on chemotherapy on April 30. Patient's pancreatitis has improved although he still has some abdominal pain. He got Rituxan on on May 08, and he is currently getting Decadron, cyclophosphamide, as well as etoposide /Doxorubicin/Vincristine. This morning he went into respiratory failure, and transferred to the ICU, and ended up getting intubated. Pulmonary started seeing the patient around April 29 and at that time he had shortness of breath. He had bilateral pleural effusion, and underwent thoracentesis on the right, and the fluid is exudative. Patient had CTA today, and it showed pulmonary embolism, as well as no infiltrates on the right side. He is afebrile. Currently on the vent, and on sedation. Notes reviewed Temps ok On epinephrine, dose being decreased Sedated on the vent Creatinine continues to rise UO low Palliative medicine notes reviewed - family still wants aggressive measures Echo noted Getting chemo for NHL Last CXR - better Sputum normal harris BC negative Antibiotics Cefepime Lines Port Past Medical History Previous tobacco and ETOH use Allergies: Coded Allergies: No Known Allergies (Unverified , 04/18/17) Objective . Vital Signs Date Time Temp Pulse Resp B/P Pulse Ox O2 Delivery O2 Flow Rate FiO2 05/04/17 11:57 97 40 05/04/17 10:00 87 05/04/17 08:00 90 05/04/17 08:00 99.3 90 29 121/58 100 05/04/17 08:00 40 05/04/17 07:33 100 45 05/04/17 06:00 87 05/04/17 04:06 95 45 05/04/17 04:00 86 05/04/17 04:00 45 05/04/17 04:00 99.1 90 15 116/56 05/04/17 02:00 91 05/04/17 01:40 97 45 05/04/17 00:00 99.0 88 14 115/55 97 05/04/17 00:00 45 05/04/17 00:00 88 05/03/17 22:19 95 45 05/03/17 22:00 87 05/03/17 20:01 96 45 05/03/17 20:00 97.7 92 14 108/56 96 05/03/17 20:00 45 05/03/17 20:00 92 05/03/17 19:00 96 Mechanical Ventilator 45 05/03/17 18:00 92 05/03/17 17:00 100 100 05/03/17 16:00 98.2 91 14 111/55 100 05/03/17 16:00 45 05/03/17 16:00 91 05/03/17 15:55 97 45 05/03/17 14:00 91 05/03/17 05/03/17 05/04/17 14:59 22:59 06:59 Intake Total 1630 ml 894 ml 1215 ml Output Total 23 ml 75 ml 75 ml Balance 1607 ml 819 ml 1140 ml IV Total 830 ml 398 ml 578 ml Tube Feeding 700 ml 376 ml 437 ml Other 100 ml 120 ml 200 ml Output Urine Total 23 ml 75 ml 75 ml # Bowel Movements 0 0 0 . Laboratory Tests Test 05/03/17 05/04/17 07:45 04:50 White Blood Count 10.2 TH/MM3 13.2 TH/MM3 Red Blood Count 3.12 MIL/MM3 2.72 MIL/MM3 Hemoglobin 9.2 GM/DL 8.0 GM/DL Hematocrit 27.3 % 23.5 % Mean Corpuscular Volume 87.4 FL 86.4 FL Mean Corpuscular Hemoglobin 29.4 PG 29.3 PG Mean Corpuscular Hemoglobin 33.6 % 33.9 % Concent Red Cell Distribution Width 16.7 % 17.2 % Platelet Count 260 TH/MM3 270 TH/MM3 Mean Platelet Volume 7.7 FL 7.2 FL Neutrophils (%) (Auto) 95.3 % 92.9 % Lymphocytes (%) (Auto) 2.2 % 2.0 % Monocytes (%) (Auto) 2.3 % 5.0 % Eosinophils (%) (Auto) 0.0 % 0.0 % Basophils (%) (Auto) 0.2 % 0.1 % Neutrophils # (Auto) 9.7 TH/MM3 12.2 TH/MM3 Lymphocytes # (Auto) 0.2 TH/MM3 0.3 TH/MM3 Monocytes # (Auto) 0.2 TH/MM3 0.7 TH/MM3 Eosinophils # (Auto) 0.0 TH/MM3 0.0 TH/MM3 Basophils # (Auto) 0.0 TH/MM3 0.0 TH/MM3 CBC Comment DIFF FINAL DIFF FINAL Differential Comment Laboratory Tests Test 05/03/17 05/04/17 07:45 04:50 Sodium Level 134 MEQ/L 132 MEQ/L Potassium Level 5.4 MEQ/L 4.2 MEQ/L Chloride Level 98 MEQ/L 96 MEQ/L Carbon Dioxide Level 23.5 MEQ/L 22.7 MEQ/L Anion Gap 13 MEQ/L 13 MEQ/L Blood Urea Nitrogen 39 MG/DL 59 MG/DL Creatinine 3.34 MG/DL 4.87 MG/DL Estimat Glomerular Filtration 24 ML/MIN 15 ML/MIN Rate Random Glucose 157 MG/DL 203 MG/DL Calcium Level 6.8 MG/DL 6.9 MG/DL Protein Corrected Calcium 7.4 MG/DL 7.4 MG/DL Phosphorus Level 8.6 MG/DL 6.6 MG/DL Lactate Dehydrogenase 542 U/L 554 U/L Total Protein 5.9 GM/DL 6.1 GM/DL Microbiology Date/Time Procedure Status Source Growth 05/02/17 10:25 Urine Culture - Final Complete Urine Catheterized Urine NO GROWTH IN 48 HOURS. 05/02/17 15:50 Gram Stain - Final Complete Sputum Endotracheal 05/02/17 15:50 Sputum Culture - Final Complete Sputum Endotracheal HEAVY GROWTH NORMAL RESPIRATORY HARRIS 05/02/17 16:00 Aerobic Blood Culture - Preliminary Resulted Blood Peripheral NO GROWTH IN 2 DAYS 05/02/17 16:00 Anaerobic Blood Culture - Preliminary Resulted Blood Peripheral NO GROWTH IN 2 DAYS 05/02/17 16:15 Aerobic Blood Culture - Preliminary Resulted Blood Peripheral NO GROWTH IN 2 DAYS 05/02/17 16:15 Anaerobic Blood Culture - Preliminary Resulted Blood Peripheral NO GROWTH IN 2 DAYS Imaging Last Impressions Chest X-Ray 05/03/17 0600 Signed Impressions: Service Date/Time: Wednesday, May 03, 2017 03:46 - CONCLUSION: Improving infiltrates. No Tacos Garcia MD Head CT 05/02/17 0000 Signed Impressions: Service Date/Time: Tuesday, May 02, 2017 16:45 - CONCLUSION: No acute intracranial disease. Tray Patel MD CT Angiography 05/02/17 0000 Signed Impressions: Service Date/Time: Tuesday, May 02, 2017 11:10 - CONCLUSION: 1. There is pulmonary embolus in the right pulmonary artery, right upper lobe and lower lobe branches. 2. Resorption of previously seen gas in the left axilla with fluid collection at this site with postprocedural change and possibly postprocedural hemorrhage not significantly changed in size. 3. Interval development of right lung airspace process may represent postobstructive pneumonia and there is mucus within the trachea not present yesterday. 4. Right pleural effusion is smaller and left pleural effusion is larger. 5. No change in bulky adenopathy. K. Anson Chavez MD Upper Extremity Ultrasound 04/30/17 0000 Signed Impressions: Service Date/Time: April 12:25 - CONCLUSION: There some superficial thrombosis of a vein in the forearm. The deep venous system is patent. Large fluid collection left axilla. Significant soft tissue edema throughout the upper arm. Rinku Hillman MD Thoracentesis Ultrasound 04/30/17 0000 Signed Impressions: Service Date/Time: April 12:14 - CONCLUSION: Uncomplicated ultrasound guided thoracentesis. Tray Patel MD Port Line Insertion 04/27/17 0000 Signed Impressions: Service Date/Time: Thursday, April 27, 2017 14:56 - CONCLUSION: 1. Bulky bilateral lower cervical lymphadenopathy. 2. Uncomplicated ultrasound and fluoroscopic guided implanted central venous port catheter placement as described in detail above. An 8 [place] [employer] port was placed. Liang Peralta MD Bone Biopsy CT 04/27/17 0000 Signed Impressions: Service Date/Time: Thursday, April 27, 2017 16:22 - CONCLUSION: 1. Uncomplicated CT guided bone marrow aspirate. 2. Uncomplicated CT guided bone marrow biopsy. Tray Patel MD Chest CT 04/25/17 0000 Signed Impressions: Service Date/Time: Wednesday, April 26, 2017 19:00 - CONCLUSION: The right pleural effusion is slightly larger on the left side has not changed. Extensive bulky adenopathy as before and malignancies such as lymphoma is suspected. Leonor Chavez MD Gall Bladder Ultrasound 04/22/17 0000 Signed Impressions: Service Date/Time: Saturday, April 22, 2017 07:35 - CONCLUSION: Small liver with focal abdomen only incompletely evaluated. Large right pleural effusion. effusion. Kirk Briceño MD FACR Abdomen CT 04/20/17 0000 Signed Impressions: Service Date/Time: Thursday, April 20, 2017 19:40 - CONCLUSION: Limited exam because of lack of intravenous contrast. Lymphoma is suspected. Pathological diagnosis could be obtained with ultrasound biopsy of the cervical, axillary or inguinal adenopathy. Kirk Briceño MD FACR Physical Exam GENERAL: sedated on the vent, not in respiratory distress. SKIN: Warm and dry. No generalized rash, no ecchymoses and no evidence of embolic lesions. HEAD: Atraumatic. Normocephalic. No temporal wasting, or tenderness. EYES: [place] conjunctiva. No petechia or hemorrhage. Pupils equal, round and reactive to light. Has dirty sclera. No injection or drainage. EARS, NOSE AND THROAT: Nose without bleeding or purulent nasal discharge. Mucous membranes moist. Orally intubated. Has poor dentition. NECK: Trachea midline. Supple and not tender, no meningeal signs. Has significant lymphadenopathy. CARDIOVASCULAR: Regular rate and rhythm. No murmurs, rubs or gallops heard RESPIRATORY: Coarse breath sounds bilaterally, decreased at the bases, worse on the right than on the left. The port is in the right upper chest, currently accessed, no redness or drainage noted. ABDOMEN: Distended, hypoactive bowel sounds, tympanitis, no reaction to palpation. Has inguinal LN present. EXTREMITIES: No clubbing, cyanosis, or edema. No joint effusion. Warm. Has very dry skin both feet. NEUROLOGICAL: Sedated. No babinski, no clonus PSYCHIATRIC: Unable to assess LINE: Port no evidence of infection. Multiple PIV no evidence of infection : Singh in place, urine looks clear Assessment & Plan Remarks IMPRESSION Respiratory failure, with multiple PE on R, has new infiltrates, ?PNA, ? infarct - PE on R and infiltrates on R Has Tomi effusions, tap is exudative, ?lymphoma New NHL, started on chemo 04/30 Pancreatitis, and elevated LFT likely due to ETOH Acute renal failure, ?sepsis, ?contrast RECOMMENDATION Continue Cefepime Will not give any further Vanco ?Renal evaluation for worsening renal function Follow C/S and adjust Abx Monitor progress Getting chemo Maggy Solis MD May 04, 2017 14:04
--- NOTE | 2017-05-04 14:23 | PD.ONC.PN ---
Subjective Subjective Remarks Afebrile overnight. Intubated, sedated, weaning off epi today. Objective Data Date Time Temp Pulse Resp B/P Pulse Ox O2 Delivery O2 Flow Rate FiO2 05/04/17 14:00 84 05/04/17 12:00 84 05/04/17 12:00 98.7 84 18 112/57 99 05/04/17 12:00 40 05/04/17 11:57 97 40 05/04/17 10:00 87 05/04/17 08:00 90 05/04/17 08:00 99.3 90 29 121/58 100 05/04/17 08:00 40 05/04/17 07:33 100 45 05/04/17 06:00 87 05/04/17 04:06 95 45 05/04/17 04:00 86 05/04/17 04:00 45 05/04/17 04:00 99.1 90 15 116/56 05/04/17 02:00 91 05/04/17 01:40 97 45 05/04/17 00:00 99.0 88 14 115/55 97 05/04/17 00:00 45 05/04/17 00:00 88 05/03/17 22:19 95 45 05/03/17 22:00 87 05/03/17 20:01 96 45 05/03/17 20:00 97.7 92 14 108/56 96 05/03/17 20:00 45 05/03/17 20:00 92 05/03/17 19:00 96 Mechanical Ventilator 45 05/03/17 18:00 92 05/03/17 17:00 100 100 05/03/17 16:00 98.2 91 14 111/55 100 05/03/17 16:00 45 05/03/17 16:00 91 05/03/17 15:55 97 45 Result Diagram: 05/04/17 0450 05/04/17 0450 Laboratory Results Laboratory Tests Test 05/03/17 05/04/17 05/04/17 19:30 04:50 12:00 Activated Partial 40.1 SEC 28.0 SEC 60.9 SEC Thromboplast Time White Blood Count 13.2 TH/MM3 Red Blood Count 2.72 MIL/MM3 Hemoglobin 8.0 GM/DL Hematocrit 23.5 % Mean Corpuscular Volume 86.4 FL Mean Corpuscular Hemoglobin 29.3 PG Mean Corpuscular Hemoglobin 33.9 % Concent Red Cell Distribution Width 17.2 % Platelet Count 270 TH/MM3 Mean Platelet Volume 7.2 FL Neutrophils (%) (Auto) 92.9 % Lymphocytes (%) (Auto) 2.0 % Monocytes (%) (Auto) 5.0 % Eosinophils (%) (Auto) 0.0 % Basophils (%) (Auto) 0.1 % Neutrophils # (Auto) 12.2 TH/MM3 Lymphocytes # (Auto) 0.3 TH/MM3 Monocytes # (Auto) 0.7 TH/MM3 Eosinophils # (Auto) 0.0 TH/MM3 Basophils # (Auto) 0.0 TH/MM3 CBC Comment DIFF FINAL Differential Comment Sodium Level 132 MEQ/L Potassium Level 4.2 MEQ/L Chloride Level 96 MEQ/L Carbon Dioxide Level 22.7 MEQ/L Anion Gap 13 MEQ/L Blood Urea Nitrogen 59 MG/DL Creatinine 4.87 MG/DL Estimat Glomerular Filtration 15 ML/MIN Rate Random Glucose 203 MG/DL Calcium Level 6.9 MG/DL Protein Corrected Calcium 7.4 MG/DL Phosphorus Level 6.6 MG/DL Lactate Dehydrogenase 554 U/L Total Protein 6.1 GM/DL Culture Results Microbiology Date/Time Procedure Status Source Growth 05/02/17 10:25 Urine Culture - Final Complete Urine Catheterized Urine NO GROWTH IN 48 HOURS. 05/02/17 15:50 Gram Stain - Final Complete Sputum Endotracheal 05/02/17 15:50 Sputum Culture - Final Complete Sputum Endotracheal HEAVY GROWTH NORMAL RESPIRATORY DEONTE 05/02/17 16:00 Aerobic Blood Culture - Preliminary Resulted Blood Peripheral NO GROWTH IN 2 DAYS 05/02/17 16:00 Anaerobic Blood Culture - Preliminary Resulted Blood Peripheral NO GROWTH IN 2 DAYS 05/02/17 16:15 Aerobic Blood Culture - Preliminary Resulted Blood Peripheral NO GROWTH IN 2 DAYS 05/02/17 16:15 Anaerobic Blood Culture - Preliminary Resulted Blood Peripheral NO GROWTH IN 2 DAYS Administered Medications Medications (Trade) Dose Ordered Sig/Shyla Route PRN Reason Start Time Stop Time Status Last Admin Dose Admin Sodium Chloride (NS Flush) 2 ml UNSCH PRN IV FLUSH FLUSH AFTER USING IV ACCESS 04/18/17 17:30 04/21/17 22:27 Senna/Docusate Sodium (Porsha-Colace) 1 tab BID PO 04/18/17 21:00 05/04/17 08:15 Heparin Sodium (Porcine) (Heparin Inj) 5,000 units Q8HR SQ 04/19/17 14:00 Hold 05/02/17 12:46 Hydralazine HCl (Apresoline Inj) 10 mg Q6HR PRN IV PUSH SBP>160, DBP>90 04/21/17 17:00 04/27/17 10:15 Allopurinol (Zyloprim) 300 mg DAILY PO 04/27/17 09:00 05/04/17 08:16 Nifedipine (Procardia Xl) 90 mg DAILY PO 04/28/17 09:00 05/01/17 09:00 Clonidine (Catapres) 0.1 mg Q6H PRN PO SBP>160, DBP>90 04/27/17 15:00 04/29/17 08:07 Ondansetron HCl (Zofran Inj) 4 mg Q6HR PRN IV PUSH NAUSEA OR VOMITING 04/30/17 11:30 04/30/17 22:17 Promethazine HCl (Phenergan Inj) 25 mg Q6H PRN IM NAUSEA OR VOMITING 04/30/17 11:30 05/01/17 13:27 Acetaminophen/ Hydrocodone Bitart ([place] 5-325 Mg) 1 tab Q6H PRN PO PAIN SCALE 1 TO 10 04/30/17 11:30 05/01/17 05:15 Prednisone (Deltasone) 115 mg Q12HR PO 05/01/17 11:00 05/05/17 21:01 Hold 05/02/17 20:08 Metoclopramide HCl (Reglan Inj) 10 mg Q8HR IV PUSH 05/01/17 15:30 05/04/17 05:43 Pantoprazole Sodium (Protonix) 40 mg DAILY PO 05/01/17 16:00 05/04/17 08:15 Insulin Human Regular (NovoLIN R SUPPLEMENTAL SCALE) 1 Q6HR SQ 05/02/17 12:00 05/04/17 12:00 Chlorhexidine Gluconate 15 ml 15 ml BID@08,20 MT 05/02/17 20:00 05/04/17 08:17 Fentanyl Citrate 250 ml @ 0 mls/hr TITRATE IV 05/02/17 10:00 05/04/17 06:52 Propofol 100 ml @ 0 mls/hr TITRATE IV 05/02/17 10:00 05/04/17 08:17 Cefepime HCl/ Sodium Chloride (Maxipime Inj/NS Inj) 100 ml @ 200 mls/hr Q12H IV 05/02/17 15:00 05/04/17 01:37 Miscellaneous Information Patient in critical care unit? Ass... [id number] .XX 05/02/17 17:15 05/02/17 17:30 Chlorhexidine Gluconate 3 pack 3 pack DAILY@04 TOPICAL 05/03/17 04:00 05/07/17 04:01 05/04/17 04:00 Heparin Sodium/ Dextrose 250 ml @ 0 mls/hr TITRATE IV 05/03/17 02:00 05/04/17 10:04 Epinephrine HCl/ Dextrose (Adrenalin (1:1000) Inj/D5W Inj) 250 ml @ 30 mls/hr TITRATE IV 05/03/17 10:15 05/04/17 09:43 Calcium Acetate (Phoslo) 2,668 mg TID PO 05/03/17 09:00 05/04/17 12:05 Objective Remarks GENERAL: Intubated sedated male lying in hospital bed. no family members at bedside. SKIN: Warm and dry. HEAD: Normocephalic. OG tube in place, receiving tube feeds. EYES: No injection or drainage. NECK: Supple, trachea midline. CARDIOVASCULAR: +S1/S2, tachy RESPIRATORY: anterior canas clear. on mechanical ventilation. GASTROINTESTINAL: Abdomen mildly distended. EXTREMITIES: No cyanosis. edema noted in extremities. NEUROLOGICAL: intubated, sedated Assessment/Plan Problem List: (1) Pulmonary emboli Status: Acute Plan: --CTA showed large PE --s/p tpa therapy on 05.02. now on heparin gtt. --echo showed right heart strain. (2) Non-Hodgkin lymphoma Status: Acute Plan: 05/04: remains critically ill. cannot start EPOCH 05/03: patient too unstable for chemotherapy. will continue to monitor and plan for chemo once stable 05/02: large PE found, will place EPOCH on hold until stabilized 05/01: Rituxan given over slow infusion. 04/30: s/p right sided thoracentesis. --follicular with features of transformation to B-cell lymphoma --Triple hit + --port placed 04/28 --bone marrow biopsy 04/28, path pending --plan to give EPOCH+R once ECHO completed --on allopurinol 300mg PO daily --monitor LDH, uric acid --Hepatitis panel negative, ECHO showed normal EF (3) Pleural effusion Status: Acute Plan: --s/p right sided thoracentesis on 04/30 --will likely need pigtail catheter placement at some point, per certified surgical technologist. (4) Acute pancreatitis Status: Resolved Plan: --Resolving --on IVF and pain management per primary team (5) Cardiogenic shock Status: Acute Plan: --certified surgical technologist managing Assessment 47y/o male admitted with pancreatitis, found to have NHL. Plan 1. continue heparin gtt 2. supportive care 3. possible dialysis today/tomorrow Attending Statement The exam, history, and the medical decision-making described in the above note were completed with the assistance of the mid-level provider. I reviewed and agree with the findings presented. I attest that I had a [id number] encounter with the patient on the same day, and personally performed and documented my assessment and findings in the medical record. Events noted. Pt arousable and follows command. Still on pressor. Worsening renal function likely due to shock. On heparin and no bleeding noted. Too unstable to start chemo at this time. Continue supportive care. Prognosis is guarded. Problem Qualifiers (1) Non-Hodgkin lymphoma: (2) Acute pancreatitis: Qualified Code: K85.20 - Alcohol-induced acute pancreatitis, unspecified complication status Brenda Platt May 04, 2017 14:23 Ruslan Connelly MD May 04, 2017 15:11
[2017-05-04] MEDS: EPOPROSTENOL NEB SOLUTION 20 NG/KG/MIN 100 ML NEB SCH ×4 (15:46→23:25)
--- NOTE | 2017-05-04 19:01 | HHI.CCPN ---
Subjective Remarks/Hospital Course Hospital Course: This is a 47yM who was originally admitted for acute pancreatitis and during this hospital admission found to have an acute aggressive non-hodgkin's lymphoma. he has had progressive shortness of breath secondary to bilateral pleural effusions and adenopathy. He rapid responsed today for worsening hypoxemia on a NRB and in severe respiratory distress. When I evaluated the patient on arrival to the C, he is in severe respiratory distress, unable to speak, RR > 40, spo2 92% on NRB, using accessory muscles. CXR without over fluid overload. additional information is unobtainable secondary to the clinical condition of the patient. Subjective: 05/03: TPA given overnight. started on heparin drip after. this morning, oligoaneuric with Cr rise to 3.3 this AM. also more hypotensive, although fio2 significantly improved to 45%. bilateral pleural effusions persist. echo yesterday with biventricular dysfunction. hgb stable. 05/04:Flolan decreased to 20 from 30 mcgs. Slight improvement in chest x-ray. Epinephrine infusion currently being weaned . Nephrology consulted secondary to continue rising creatinine. Objective Vital Signs Date Time Temp Pulse Resp B/P Pulse Ox O2 Delivery O2 Flow Rate FiO2 05/04/17 18:00 80 05/04/17 16:00 40 05/04/17 16:00 98.8 16 119/56 99 05/03/17 19:00 Mechanical Ventilator 05/02/17 08:40 15.00 Intake and Output 05/03/17 05/03/17 05/04/17 08:00 16:00 00:00 Intake Total 646 ml 1630 ml 894 ml Output Total 10 ml 23 ml 75 ml Balance 636 ml 1607 ml 819 ml Result Diagram: 05/04/17 0450 05/04/17 0450 Other Results Microbiology Date/Time Procedure Status Source Growth 05/02/17 10:25 Urine Culture - Final Complete Urine Catheterized Urine NO GROWTH IN 48 HOURS. 05/02/17 15:50 Gram Stain - Final Complete Sputum Endotracheal 05/02/17 15:50 Sputum Culture - Final Complete Sputum Endotracheal HEAVY GROWTH NORMAL RESPIRATORY DEONTE Imaging Last Impressions Chest X-Ray 05/03/17 0600 Signed Impressions: Service Date/Time: Wednesday, May 03, 2017 03:46 - CONCLUSION: Improving infiltrates. No Tacos Garcia MD Head CT 05/03/17 Signed Impressions: Service Date/Time: Wednesday, May 03, 2017 17:22 - CONCLUSION: No acute intracranial disease. No hemorrhage seen. Tray Patel MD CT Angiography 05/02/17 Signed Impressions: Service Date/Time: Tuesday, May 02, 2017 11:10 - CONCLUSION: 1. There is pulmonary embolus in the right pulmonary artery, right upper lobe and lower lobe branches. 2. Resorption of previously seen gas in the left axilla with fluid collection at this site with postprocedural change and possibly postprocedural hemorrhage not significantly changed in size. 3. Interval development of right lung airspace process may represent postobstructive pneumonia and there is mucus within the trachea not present yesterday. 4. Right pleural effusion is smaller and left pleural effusion is larger. 5. No change in bulky adenopathy. Leonor Chavez MD Upper Extremity Ultrasound 04/30/17 Signed Impressions: Service Date/Time: April 12:25 - CONCLUSION: There some superficial thrombosis of a vein in the forearm. The deep venous system is patent. Large fluid collection left axilla. Significant soft tissue edema throughout the upper arm. Rinku Hillman MD Thoracentesis Ultrasound 04/30/17 0000 Signed Impressions: Service Date/Time: April 12:14 - CONCLUSION: Uncomplicated ultrasound guided thoracentesis. Tray Patel MD Port Line Insertion 04/27/17 Signed Impressions: Service Date/Time: Thursday, April 27, 2017 14:56 - CONCLUSION: 1. Bulky bilateral lower cervical lymphadenopathy. 2. Uncomplicated ultrasound and fluoroscopic guided implanted central venous port catheter placement as described in detail above. An 8 [place] Power port was placed. Liang Peralta MD Bone Biopsy CT 04/27/17 0000 Signed Impressions: Service Date/Time: Thursday, April 27, 2017 16:22 - CONCLUSION: 1. Uncomplicated CT guided bone marrow aspirate. 2. Uncomplicated CT guided bone marrow biopsy. Tray Patel MD Chest CT 04/25/17 0000 Signed Impressions: Service Date/Time: Wednesday, April 26, 2017 19:00 - CONCLUSION: The right pleural effusion is slightly larger on the left side has not changed. Extensive bulky adenopathy as before and malignancies such as lymphoma is suspected. Leonor Chavez MD Gall Bladder Ultrasound 04/22/17 0000 Signed Impressions: Service Date/Time: Saturday, April 22, 2017 07:35 - CONCLUSION: Small liver with focal abdomen only incompletely evaluated. Large right pleural effusion. effusion. Kirk Briceño MD FACR Abdomen CT 04/20/17 0000 Signed Impressions: Service Date/Time: Thursday, April 20, 2017 19:40 - CONCLUSION: Limited exam because of lack of intravenous contrast. Lymphoma is suspected. Pathological diagnosis could be obtained with ultrasound biopsy of the cervical, axillary or inguinal adenopathy. Kirk Briceño MD FACR Last Impressions Chest X-Ray 05/02/17 0000 Signed Impressions: Service Date/Time: Tuesday, May 02, 2017 08:11 - CONCLUSION: There is mild improvement in aeration of the right lower lung, otherwise not significantly changed. Leonor Chavez MD Upper Extremity Ultrasound 04/30/17 0000 Signed Impressions: Service Date/Time: April 12:25 - CONCLUSION: There some superficial thrombosis of a vein in the forearm. The deep venous system is patent. Large fluid collection left axilla. Significant soft tissue edema throughout the upper arm. Rinku Hillman MD Thoracentesis Ultrasound 04/30/17 0000 Signed Impressions: Service Date/Time: April 12:14 - CONCLUSION: Uncomplicated ultrasound guided thoracentesis. Tray Patel MD Port Line Insertion 04/27/17 0000 Signed Impressions: Service Date/Time: Thursday, April 27, 2017 14:56 - CONCLUSION: 1. Bulky bilateral lower cervical lymphadenopathy. 2. Uncomplicated ultrasound and fluoroscopic guided implanted central venous port catheter placement as described in detail above. An 8 [place] Power port was placed. Liang Peralta MD Bone Biopsy CT 04/27/17 0000 Signed Impressions: Service Date/Time: Thursday, April 27, 2017 16:22 - CONCLUSION: 1. Uncomplicated CT guided bone marrow aspirate. 2. Uncomplicated CT guided bone marrow biopsy. Tray Patel MD Chest CT 04/25/17 0000 Signed Impressions: Service Date/Time: Wednesday, April 26, 2017 19:00 - CONCLUSION: The right pleural effusion is slightly larger on the left side has not changed. Extensive bulky adenopathy as before and malignancies such as lymphoma is suspected. Leonor Chavez MD Gall Bladder Ultrasound 04/22/17 0000 Signed Impressions: Service Date/Time: Saturday, April 22, 2017 07:35 - CONCLUSION: Small liver with focal abdomen only incompletely evaluated. Large right pleural effusion. effusion. Kirk Briceño MD FACR Abdomen CT 04/20/17 0000 Signed Impressions: Service Date/Time: Thursday, April 20, 2017 19:40 - CONCLUSION: Limited exam because of lack of intravenous contrast. Lymphoma is suspected. Pathological diagnosis could be obtained with ultrasound biopsy of the cervical, axillary or inguinal adenopathy. Kirk Briceño MD FACR Objective Remarks General: Well-nourished well-developed middle-aged male, lying in bed, critically ill, intubated, sedated heent: perrl. mucous membranes moist neck: no jvd. trachea midline orotracheally intubated chest: decreased BS at the bases bilaterally. equal chest rise. PRVC, 45% fio2. cv: tachycardic rate, regular rhythm. No murmurs rubs or gallops abd: soft, nontender, nondistended. no guarding. extr: trace peripheral edema. distal pulses 1+ neuro: RASS -3. w/d x 4. does not follow commands. sedated. Procedures 04/[address] excision biopsy 04/27- port placement 05/02-TPA A/P Assessment and Plan Assessment: 47yM with aggressive large B cell lymphoma, acute pancreatitis, now with submassive PE, acute cardiogenic shock, acute hypoxic respiratory failure, now oligoaneuric acute kidney injury secondary to shock. Currently inotropic therapy with epinephrine and inhaled flolan , decreased for RV support. Remains very critically ill. Will be unable to add invasive monitoring until his TPA window x 24h is complete. Also will need drainage of his pleural effusions, although will hold off for now given cardiogenic shock. Plan by Systems: Neuro: -- propofol for goal RASS -2 -- repeat head on 05/03 CT 24h after TPA-no abnormality Respiratory: Acute Hypoxic Respiratory Failure Acute Submassive Pulmonary Embolism Bilateral pleural effusions, large, acute -- does not meet SBT criteria today while in shock -- vent bundle, hob at 30 degrees, nebs -- wean fio2 for goal spo2 > 90% -- inhaled flolan decreased to 20 ng/kg/min for RV support in the setting of acute PE -- Follow-up chest x-ray and ABGs Cardiovascular: Acute Submassive Pulmonary Embolism Right Heart Dysfunction Global severe left ventricular systolic dysfunction Cardiogenic Shock -- high risk for sudden cardiac s/p acute PE -- Epinephrine at 2mcg/min for inotropic support -- Maintain a goal map > 65 mmHg -- 2d echo 05/02: EF 30-35%, RV dysfunction with dilation Renal: Acute Kidney Injury -- likely secondary to cardiogenic shock -- may require renal replacement therapy, but likely not a good candidate given his overall medical course. will discuss with hematology about this as an option. - Nephrology consulted -- continue shepard with strict I/Os. FEN/GI: Hyperphosphatemia Hyperkalemia Hypocalcemia Acute protein calorie malnutrition- severe -- per the echo from yesterday, intravascular volume status is appropriate, but very likely will get volume overloaded today given severe oliguria. will minimize excess iv fluids -- NPO while in shock -- start PhosLo -- daily electrolytes, replete per ICU protocol Heme/ID Acute Large Cell B-cell lymphoma Pulmonary Embolism -- hematology/oncology on board -- chemo on hold secondary to his acute life-threatening illnesses. -- continue heparin drip, goal PTT 60 - 80. Will eventually transition Endocrine: Hyperglycemia of Critical Illness -- SSI, q6h, med scale Prophylaxis: DVT: SCDs, heparin drip GI: protonix Lines: -- port -- shepard -- will need arterial access, but will wait 24h post TPA to place. Dispo: -- remain in the ICU, palliative care consulted to define goals of care with family. Family requests aggressive measures nephrology consulted regarding ALDO. my billing statement This patient remains critically ill with one or more organ systems which are or may become a threat to life. I have spent in excess of 30 minutes discontinuously in the care and management of this patient. This time is exclusive of procedures, and includes, but is not limited to, evaluation of the patient, review of the medical record, discussions with family, consultants, nursing staff, or respiratory therapy, and documentation in the medical record. Physician Lyudmila Aldrich MD May 04, 2017 19:01
[2017-05-04] MEDS ORDERED: CALCIUM GLUCONATE INJ 2 GM in DEXTROSE 5% IN WATER 100ML INJ 100 ML IV ONE ×2 (20:00)
[2017-05-04 22:04] LABS: APTT (PATIENT) 122.1 SEC (24.3-30.1)
[2017-05-05] VITALS (18 sets, daily range): BP systolic 104–157; BP diastolic 55–81; PULSE 68–76; RESP 14–17; TEMP 97–98; O2SAT 99–100
[2017-05-05] MEDS: CEFEPIME INJ 2,000 MG in SODIUM CHLORIDE 0.9% INJ 100 ML IV SCH (02:43)
[2017-05-05] MEDS: HEPARIN-D5W 25,000 U/250 ML 250 ML IV SCH (02:46)
[2017-05-05] MEDS: RESP: ALBUTEROL 2.5 MG/IPRATROPIUM 0.5 MG NEB (SCH) INH ×4 (03:16→21:02)
[2017-05-05] MEDS: CHLORHEXIDINE GLUCONATE 2 % 1 PACK (2 CLOTHS)(taper/protocol) TOPICAL SCH (04:00)
[2017-05-05 05:12] LABS: HEMATOCRIT 22.8 % (39.0-51.0); MEAN CELL VOLUME 84.8 FL (80.0-100.0); MEAN CORPUSCULAR HEMOGLOBIN 29.7 PG (27.0-34.0); PLATELET COUNT 229 TH/MM3 (150-450); RED BLOOD COUNT 2.68 MIL/MM3 (4.50-5.90); RED CELL DISTRIBUTION WIDTH 16.6 % (11.6-17.2); REVIEW FLAG FINAL; WHITE BLOOD COUNT 6.3 TH/MM3 (4.0-11.0)
[2017-05-05 05:43] LABS: BLOOD GAS BASE EXCESS -6.5 mmol/L (-2-2); BLOOD GAS CARBOXYHEMOGLOBIN 1.2 % (0-4); BLOOD GAS HCO3 19 mmol/L (22-26); BLOOD GAS METHEMOGLOBIN 1.3 % (0-2); BLOOD GAS O2 HGB SATURATION 97 % (90-100); BLOOD GAS OXYGEN CONTENT 11.5 Vol % (12.0-20.0); BLOOD GAS PCO2 39 mmHg (38-42); BLOOD GAS PO2 142 mmHg (61-120); BLOOD GAS TOTAL HGB 8.3 G/DL (12.0-16.0); CRITICAL VALUE NO; OXYGEN DEVICE VENTILATOR; TEMP CORR TO 98.6
[2017-05-05 05:44] LABS: DRAW SITE RT RADIAL; FIO2 40 %; NUMBER OF ARTERIAL PUNCTURES 1; STAT NO; ULNAR PULSE PRESENT; VENT SETTINGS AC/RR14/VT500/PEEP7
[2017-05-05] MEDS: fentaNYL DRIP 250 ML IV SCH ×2 (05:59→21:43)
--- NOTE | 2017-05-05 05:59 | RADRPT ---
EXAM DATE/TIME: 05/05/2017 03:21 [facility] COMPARISON: CT PULMONARY ANGIOGRAM, May 02, 2017, 11:10. CHEST SINGLE AP, May 03, 2017, 3:46. INDICATIONS : Shortness of breath. MEDICAL HISTORY : Pancreatitis. Lymphoma. SURGICAL HISTORY : None. ENCOUNTER: Subsequent ACUITY: 2 weeks PAIN SCORE: 0/10 LOCATION: Bilateral chest FINDINGS: Portable AP view of the chest demonstrates a normal-sized cardiac silhouette. ETT and nasogastric tub e remain present. There is a stable masslike area in the right paratracheal region. Bibasilar pleural -parenchymal opacities are stable. No pneumothorax is visualized. CONCLUSION: 1. Stable bilateral pleural effusions with associated volume loss and/or airspace consolidation. 2. Stable mass in the right peritracheal region. Tacos Perez MD on May 05, 2017 at 5:56 Board Certified Radiologist. This report was verified electronically.
[2017-05-05] MEDS: PROPOFOL 1000 MG/100 ML INJ 100 ML IV SCH ×2 (06:00→09:37)
[2017-05-05] MEDS: INSULIN NovoLIN REGULAR SUPPLEMENTAL SCALE SQ SCH ×3 (06:00→17:29)
[2017-05-05] MEDS: METOCLOPRAMIDE HCL 10 MG/2 ML VIAL IV PUSH SCH ×3 (06:01→21:21)
[2017-05-05 06:38] LABS: BICARBONATE 20.1 MEQ/L (21.0-32.0); MAGNESIUM 2.3 MG/DL (1.5-2.5); URIC ACID 6.6 MG/DL (2.6-7.2)
[2017-05-05 07:05] LABS: CALCIUM-PROTEIN CORRECTED 7.9 MG/DL (8.5-10.1)
[2017-05-05 07:59] LABS: APTT (PATIENT) 78.6 SEC (24.3-30.1)
[2017-05-05] MEDS: EPOPROSTENOL NEB SOLUTION 20 NG/KG/MIN 100 ML NEB SCH ×6 (08:08→23:00)
[2017-05-05] MEDS: CHLORHEXIDINE 0.12% (ORAL KIT) 15 ML CUP MT SCH ×2 (08:10→21:21)
[2017-05-05] MEDS: DOCUSATE SODIUM 50 MG/SENNA 8.6 MG TAB PO SCH ×2 (08:11→21:20)
[2017-05-05] MEDS: CALCIUM ACETATE 667 MG CAP PO SCH ×3 (08:11→17:25)
[2017-05-05] MEDS: PANTOPRAZOLE SOD 40 MG DELAYED RELEASE TAB PO SCH (08:12)
[2017-05-05] MEDS: NIFEdipine 90 MG SUSTAINED RELEASE TAB PO SCH (08:12)
[2017-05-05] MEDS: ALLOPURINOL 300 MG TAB PO SCH (08:12)
[2017-05-05] MEDS: DEXAMETHASONE INJ 20 MG, GRANISETRON INJ 1 MG in SODIUM CHLORIDE 0.9% INJ 50 ML IV SCH (11:30)
--- NOTE | 2017-05-05 12:37 | PD.ONC.PN ---
Subjective Subjective Remarks Afebrile overnight. Patient remains intubated, sedated. Off epi drip. Objective Data Date Time Temp Pulse Resp B/P Pulse Ox O2 Delivery O2 Flow Rate FiO2 05/05/17 11:01 100 40 05/05/17 08:20 100 40 05/05/17 08:00 40 05/05/17 06:00 76 05/05/17 04:09 100 40 05/05/17 04:00 72 05/05/17 04:00 98.0 05/05/17 04:00 40 05/05/17 04:00 98.0 72 14 104/56 100 05/05/17 02:00 72 05/05/17 01:09 99 40 05/05/17 00:00 76 05/05/17 00:00 40 05/05/17 00:00 97.7 76 14 119/57 100 05/04/17 22:00 71 05/04/17 20:00 97.7 75 14 114/55 100 05/04/17 20:00 40 05/04/17 20:00 75 05/04/17 19:45 98 40 05/04/17 18:00 80 05/04/17 16:00 40 05/04/17 16:00 98.8 84 16 119/56 99 05/04/17 16:00 81 05/04/17 15:43 99 40 05/04/17 14:00 84 Result Diagram: 05/05/17 0425 05/05/17 0425 Laboratory Results Laboratory Tests Test 05/04/17 05/05/17 05/05/17 05/05/17 19:20 01:15 04:25 05:29 Activated Partial 122.1 SEC 56.0 SEC Thromboplast Time White Blood Count 6.3 TH/MM3 Red Blood Count 2.68 MIL/MM3 Hemoglobin 8.0 GM/DL Hematocrit 22.8 % Mean Corpuscular Volume 84.8 FL Mean Corpuscular Hemoglobin 29.7 PG Mean Corpuscular Hemoglobin 35.0 % Concent Red Cell Distribution Width 16.6 % Platelet Count 229 TH/MM3 Mean Platelet Volume 7.0 FL Sodium Level 132 MEQ/L Potassium Level 4.0 MEQ/L Chloride Level 98 MEQ/L Carbon Dioxide Level 20.1 MEQ/L Anion Gap 14 MEQ/L Blood Urea Nitrogen 66 MG/DL Creatinine 5.35 MG/DL Estimat Glomerular Filtration 14 ML/MIN Rate Random Glucose 122 MG/DL Uric Acid 6.6 MG/DL Calcium Level 7.1 MG/DL Protein Corrected Calcium 7.9 MG/DL Phosphorus Level 5.4 MG/DL Magnesium Level 2.3 MG/DL Total Protein 5.5 GM/DL Blood Gas Puncture Site RT RADIAL Blood Gas Patient Temperature 98.6 Blood Gas HCO3 19 mmol/L Blood Gas Base Excess -6.5 mmol/L Blood Gas Oxygen Saturation 97 % Arterial Blood pH 7.30 Arterial Blood Partial 39 mmHg Pressure CO2 Arterial Blood Partial 142 mmHg Pressure O2 Arterial Blood Oxygen Content 11.5 Vol % Arterial Blood 1.2 % Carboxyhemoglobin Arterial Blood Methemoglobin 1.3 % Blood Gas Hemoglobin 8.3 G/DL Oxygen Delivery Device VENTILATOR Blood Gas Ventilator Setting AC/RR14/VT500/PEEP7 Blood Gas Inspired Oxygen 40 % Test 05/05/17 06:50 Activated Partial 78.6 SEC Thromboplast Time Culture Results Microbiology Date/Time Procedure Status Source Growth 05/02/17 15:50 Gram Stain - Final Complete Sputum Endotracheal 05/02/17 15:50 Sputum Culture - Final Complete Sputum Endotracheal HEAVY GROWTH NORMAL RESPIRATORY DEONTE 05/02/17 16:00 Aerobic Blood Culture - Preliminary Resulted Blood Peripheral NO GROWTH IN 3 DAYS 05/02/17 16:00 Anaerobic Blood Culture - Preliminary Resulted Blood Peripheral NO GROWTH IN 3 DAYS 05/02/17 16:15 Aerobic Blood Culture - Preliminary Resulted Blood Peripheral NO GROWTH IN 3 DAYS 05/02/17 16:15 Anaerobic Blood Culture - Preliminary Resulted Blood Peripheral NO GROWTH IN 3 DAYS Imaging Studies Last 24 hours Impressions Chest X-Ray 05/05/17 0600 Signed Impressions: Service Date/Time: Friday, May 05, 2017 03:21 - CONCLUSION: 1. Stable bilateral pleural effusions with associated volume loss and/or airspace consolidation. 2. Stable mass in the right peritracheal region. Tacos Perez MD Administered Medications Medications (Trade) Dose Ordered Sig/Shyla Route PRN Reason Start Time Stop Time Status Last Admin Dose Admin Sodium Chloride (NS Flush) 2 ml UNSCH PRN IV FLUSH FLUSH AFTER USING IV ACCESS 04/18/17 17:30 04/21/17 22:27 Senna/Docusate Sodium (Porsha-Colace) 1 tab BID PO 04/18/17 21:00 05/05/17 08:11 Heparin Sodium (Porcine) (Heparin Inj) 5,000 units Q8HR SQ 04/19/17 14:00 Hold 05/02/17 12:46 Hydralazine HCl (Apresoline Inj) 10 mg Q6HR PRN IV PUSH SBP>160, DBP>90 04/21/17 17:00 04/27/17 10:15 Nifedipine (Procardia Xl) 90 mg DAILY PO 04/28/17 09:00 05/01/17 09:00 Clonidine (Catapres) 0.1 mg Q6H PRN PO SBP>160, DBP>90 04/27/17 15:00 04/29/17 08:07 Ondansetron HCl (Zofran Inj) 4 mg Q6HR PRN IV PUSH NAUSEA OR VOMITING 04/30/17 11:30 04/30/17 22:17 Promethazine HCl (Phenergan Inj) 25 mg Q6H PRN IM NAUSEA OR VOMITING 04/30/17 11:30 05/01/17 13:27 Acetaminophen/ Hydrocodone Bitart (Pillsbury 5-325 Mg) 1 tab Q6H PRN PO PAIN SCALE 1 TO 10 04/30/17 11:30 05/01/17 05:15 Prednisone (Deltasone) 115 mg Q12HR PO 05/01/17 11:00 05/05/17 21:01 Hold 05/02/17 20:08 Metoclopramide HCl (Reglan Inj) 10 mg Q8HR IV PUSH 05/01/17 15:30 05/05/17 06:01 Pantoprazole Sodium (Protonix) 40 mg DAILY PO 05/01/17 16:00 05/04/17 08:15 Insulin Human Regular (NovoLIN R SUPPLEMENTAL SCALE) 1 Q6HR SQ 05/02/17 12:00 05/04/17 18:00 Chlorhexidine Gluconate 15 ml 15 ml BID@08,20 MT 05/02/17 20:00 05/05/17 08:10 Fentanyl Citrate 250 ml @ 0 mls/hr TITRATE IV 05/02/17 10:00 05/05/17 05:59 Propofol (Diprivan 1000 Mg/100ml Inj) 100 ml @ 0 mls/hr TITRATE IV 05/02/17 10:00 05/05/17 09:37 Miscellaneous Information Patient in critical care unit? Ass... Q361D .XX 05/02/17 17:15 05/02/17 17:30 Chlorhexidine Gluconate 3 pack 3 pack DAILY@04 TOPICAL 05/03/17 04:00 05/07/17 04:01 05/05/17 04:00 Heparin Sodium/ Dextrose 250 ml @ 0 mls/hr TITRATE IV 05/03/17 02:00 05/05/17 02:46 Epinephrine HCl/ Dextrose (Adrenalin (1:1000) Inj/D5W Inj) 250 ml @ 30 mls/hr TITRATE IV 05/03/17 10:15 05/04/17 09:43 Calcium Acetate 2668 mg 2,668 mg TID PO 05/03/17 09:00 05/05/17 08:11 Epoprostenol Sodium/Sodium Chloride (Flolan (30,000 Ng/ml) Neb/NS Inj) 100 ml @ 8 mls/hr Q8H NEB 05/04/17 15:00 05/05/17 08:08 Objective Remarks GENERAL: Intubated sedated male supine in bed. SKIN: Warm and dry. port, right chest wall, no bleeding. HEAD: Normocephalic. receiving tube feeds via OG tube. EYES: No injection or drainage. NECK: Supple, trachea midline. CARDIOVASCULAR: +S1/S2 RESPIRATORY: anterior canas clear. on mechanical ventilation. GASTROINTESTINAL: Abdomen distended. EXTREMITIES: No cyanosis. edema noted in extremities. NEUROLOGICAL: intubated, sedated Assessment/Plan Problem List: (1) Pulmonary emboli Status: Acute Plan: --CTA showed large PE --s/p tpa therapy on 05.02. now on heparin gtt. --echo showed right heart strain. (2) Non-Hodgkin lymphoma Status: Acute Plan: --remains critically ill. cannot start EPOCH s/p Rituxan on 05.01 --follicular with features of transformation to B-cell lymphoma --Triple hit + --port placed 04/28 --bone marrow biopsy 04/28 --on allopurinol 200mg PO daily --monitor LDH, uric acid --Hepatitis panel negative (3) Pleural effusion Status: Acute Plan: --s/p right sided thoracentesis on 04/30 --will likely need pigtail catheter placement at some point, per match up worker. (4) Cardiogenic shock Status: Acute Plan: --match up worker managing (5) ALDO (acute kidney injury) Status: Acute Plan: --likely d/t cardiogenic shock --nephrology has been consulted --patient may need dialysis. Assessment 47y/o male admitted with pancreatitis, found to have NHL. Plan 1. continue heparin gtt 2. supportive care 3. await nephrology consult, patient will likely need dialysis. Attending Statement The exam, history, and the medical decision-making described in the above note were completed with the assistance of the mid-level provider. I reviewed and agree with the findings presented. I attest that I had a [id number] encounter with the patient on the same day, and personally performed and documented my assessment and findings in the medical record. Remains sedated on vent. Renal function is worse likely due to shock. No evidence of tumor lysis syndrome. Not stable to give chemotherapy at this time. Prognosis guarded. Continue heparin. Problem Qualifiers (1) Non-Hodgkin lymphoma: Brenda Platt May 05, 2017 12:37 Ruslan Connelly MD May 05, 2017 16:49
--- NOTE | 2017-05-05 15:33 | MB ---
cc: KIRK BANDA MD DATE OF CONSULTATION: 05/05/2017 REASON FOR CONSULTATION Acute kidney injury with elevated BUN and creatinine. HISTORY OF PRESENT ILLNESS This is a 47-year-old male with no known past medical history who came to the hospital with complaint of nausea, vomiting and abdominal pain on April 18. I was called to see the patient because of elevated BUN and creatinine. The patient had a creatinine of 1.3 on presentation which improved to 0.7 and 0.8 and for the last 3-4 days has been slowly increasing. The patient developed respiratory failure. He was also diagnosed with diffuse adenopathy and was seen by oncology. He has been diagnosed with non-Hodgkin's lymphoma. He also has pulmonary embolism. He had a CTA which showed a large pulmonary embolism and developed respiratory failure and shock status. His blood pressure is now better but urine output has been dropping. He is not on any pressors. Two or three days ago his blood pressure was on the lower side. The patient is not able to give any history. He is intubated and sedated. Most of the history is taken from the patient's chart. PAST MEDICAL HISTORY None. PAST SURGICAL HISTORY None. REVIEW OF SYSTEMS Cannot be taken since the patient is intubated. SOCIAL HISTORY The patient has a history of smoking, stopped about 2 months ago. He also has a history of alcoholism, stopped 2 months ago. FAMILY HISTORY Not available. ALLERGIES No known drug allergies. MEDICATIONS Currently he is on following medications: 1. Porsha-Colace, one tablet b.i.d. 2. Nifedipine 90 mg once a day. 3. Protonix 40 mg daily. 4. Allopurinol 200 mg once a day. 5. DuoNeb nebulizer. 6. Dexamethasone IV q.24h. 7. Cefepime two grams q.24h. 8. Insulin sliding scale. 9. Epoprostenol nebulizer q.8h. 10.Reglan 10 mg q.8h. 11.PhosLo 2668 mg t.i.d. PHYSICAL EXAMINATION GENERAL: The patient is intubated and sedated. VITAL SIGNS: His last blood pressure is 104/56. He has off pressors now. Temperature is 98. Oxygen saturation is 100% on 40% FIO2. HEENT: Pupils are mid constricted. Non-icteric sclera. Conjunctiva pale. NECK: Supple. JVD is not elevated. LUNGS: The patient has bilateral decreased air entry with diffuse wheezing and basilar rales. HEART: S1, S2, regular rhythm. ABDOMEN: Distended, soft, lax. EXTREMITIES: 1+ leg edema. INVESTIGATIONS WBC count is 6.3, hemoglobin 8.0, platelet count 229. Sodium 132, potassium 4.0, chloride 98, bicarb 20, BUN 66, creatinine 5.35. Calcium corrected is 7.9. Phosphorus 5.4. PTT is 78.6. Urinalysis is showing protein of 30, rbc 2, wbc 3. HIV RNA was less than 20. Cultures so far did not grow anything. IMAGING STUDIES The patient has a chest x-ray done which shows bilateral pleural effusions with consolidation, stable mass in the right paratracheal region. CT scan of the brain was done without IV contrast and shows no acute intracranial lesion or hemorrhage. CTA was done on May 02 and it shows pulmonary embolism in the right pulmonary artery. ASSESSMENT 1. Acute kidney injury. 2. Respiratory failure. 3. Pulmonary embolism. 4. Non-Hodgkin's lymphoma. 5. Anemia. 6. Hyperphosphatemia. PLAN The patient has acute kidney injury and now has decreased urine output. Blood pressure is stable. The etiology of acute kidney injury is possibly related to hypotension and ATN, contrast nephropathy or interstitial nephritis. I will check the urine sodium osmolality and urine for eosinophils and also get an ultrasound of the kidneys. At present since his BUN and creatinine have been rapidly increasing, most likely he will need dialysis. There is no acute urgent need today but if his renal function does not improve most likely he will need dialysis tomorrow. Hematology has been following him. Follow the urine output, BUN and creatinine. Thank you for the consultation. I will follow the patient while he is in the hospital. MD CHRISTIAN Sapp/LYDIA /3:09 PM /3:23 PM
[2017-05-05 15:50] LABS: APTT (PATIENT) 80.7 SEC (24.3-30.1)
--- NOTE | 2017-05-05 16:32 | HHI.HCPN ---
Reason for visit a. To assist with evaluation and management of symptoms including: Debility. b. To assist medical decision maker(s) with: better understanding of current medical conditions; weighing benefits/burdens of medical treatment options; making medical treatment decisions. . Subjective/Interval History Mr. Werner is a 47-year-old male with no significant medical history who presented to the emergency room on 04/18/17 for evaluation of nausea, vomiting and diarrhea for the previous 2 weeks. Patient was admitted for further management of acute pancreatitis and dehydration. CT chest and abdomen revealing diffuse lymphadenopathy. Oncology consulted, lymph node pathology consistent with aggressive CD10 positive B-cell non-Hodgkin lymphoma. Clinical course complicated by large pulmonary embolism post TPA, acute hypoxemic respiratory failure required intubation and mechanical ventilation on 05/02/17 and cardiogenic shock requiring inotropic therapy. Palliative care was consulted for assistance with goals of care and to determine healthcare surrogate decision maker. Patient's clinical course further complicated by acute kidney injury with elevated BUN/creatinine and decreased urinary output. Nephrology, Dr. Haley consulted on 05/05/17. As per nephrology, patient most likely will need hemodialysis, to reevaluate tomorrow. Patient seen in ICU. Remains orally intubated on mechanical ventilation. Opening eyes to tactile stimuli, not tracking, no following commands or attempting to communicate. Currently sedated on propofol and fentanyl. Patient remains afebrile, stable hemodynamically. 40% FiO2, oxygen saturation 100%. Ongoing tube feedings, tolerating 60 mL an hour. Stable hemoglobin at 8.0. Worsening BUN/creatinine 66/5.35 from 59/4.87 yesterday. Chest x-ray today revealing stable bilateral pleural effusions with associated volume loss and/or airspace consolidation. blood, sputum and urine culture with no growth. Telephone conversation with patient's mother Oxana Seals. Medical update provided. Discussed worsening kidney injury and nephrology consultation. Discussed that patient remains at a very high risk for further cardiac and additional complications. Family verbalized being hopeful but realistic regarding patient's clinical condition. Case discussed with SUM[facility] King and Dr. Russell. Palliative care will continue to follow-up for family support. . Family/friend interactions See interval note. . Advance Directives Living Will: Never completed Health Care Surrogate: Copy in medical record Durable Power of Meter Reading Clerk: Never completed Advance Directive Specifics Date completed: 04/29/17. . Health Care Surrogate(s): HSC/mother Oxana Seals. Alternate surrogate -sister France Garcia. . Documented care wishes: No living will completed. . Significant change in goals: Goals of care remain unchanged. . Objective Vital Signs Date Time Temp Pulse Resp B/P Pulse Ox O2 Delivery O2 Flow Rate FiO2 05/05/17 15:36 100 40 05/05/17 12:00 40 05/05/17 11:01 100 40 05/05/17 08:20 100 40 05/05/17 08:00 40 05/05/17 06:00 76 05/05/17 04:09 100 40 05/05/17 04:00 72 05/05/17 04:00 98.0 05/05/17 04:00 40 05/05/17 04:00 98.0 72 14 104/56 100 05/05/17 02:00 72 05/05/17 01:09 99 40 05/05/17 00:00 76 05/05/17 00:00 40 05/05/17 00:00 97.7 76 14 119/57 100 05/04/17 22:00 71 05/04/17 20:00 97.7 75 14 114/55 100 05/04/17 20:00 40 05/04/17 20:00 75 05/04/17 19:45 98 40 05/04/17 18:00 80 Physical Exam CONSTITUTIONAL/GENERAL: This is an adequately nourished male in no acute distress. Orally intubated on mechanical ventilation. TUBES/LINES/DRAINS: ETT, OG, Mediport right chest, PIV's, Singh catheter, SCDs, soft wrist restraints. SKIN: No jaundice, rashes, or lesions. Ecchymoses on upper extremities. No wounds seen anteriorly. Skin temperature appropriate. Not diaphoretic. HEAD: Atraumatic. Normocephalic. EYES: Pupils equal and round and reactive. No scleral icterus. No injection or drainage. ENT: Unable to evaluate hearing secondary to clinical condition, intubated. Nose without bleeding or purulent drainage. Moist oral mucosa. Poor dentition. NECK: Trachea midline. Supple, nontender. CARDIOVASCULAR: Regular rate and rhythm without murmurs, gallops, or rubs. Peripheral pulses symmetric. RESPIRATORY/CHEST: Symmetric, coarse breath sounds bilaterally. Orally intubated on mechanical ventilation. GASTROINTESTINAL: Abdomen distended, round. Bowel sounds present. GENITOURINARY: Without palpable bladder distension. MUSCULOSKELETAL: Extremities without clubbing, cyanosis, or edema. No mottling or clubbing. NEUROLOGICAL: Sedated. Briefly opening eyes to tactile stimuli, not tracking or following commands. PSYCHIATRIC: Appears calm. . Diagnostic Tests Laboratory Laboratory Tests Test 05/03/17 05/03/17 05/03/17 05/03/17 02:15 07:45 09:00 13:00 Activated Partial 32.2 SEC 116.5 SEC 60.4 SEC Thromboplast Time (24.3-30.1) (24.3-30.1) (24.3-30.1) White Blood Count 10.2 TH/MM3 (4.0-11.0) Red Blood Count 3.12 MIL/MM3 (4.50-5.90) Hemoglobin 9.2 GM/DL (13.0-17.0) Hematocrit 27.3 % (39.0-51.0) Mean Corpuscular Volume 87.4 FL (80.0-100.0) Mean Corpuscular Hemoglobin 29.4 PG (27.0-34.0) Mean Corpuscular Hemoglobin 33.6 % Concent (32.0-36.0) Red Cell Distribution Width 16.7 % (11.6-17.2) Platelet Count 260 TH/MM3 (150-450) Mean Platelet Volume 7.7 FL (7.0-11.0) Neutrophils (%) (Auto) 95.3 % (16.0-70.0) Lymphocytes (%) (Auto) 2.2 % (9.0-44.0) Monocytes (%) (Auto) 2.3 % (0.0-8.0) Eosinophils (%) (Auto) 0.0 % (0.0-4.0) Basophils (%) (Auto) 0.2 % (0.0-2.0) Neutrophils # (Auto) 9.7 TH/MM3 (1.8-7.7) Lymphocytes # (Auto) 0.2 TH/MM3 (1.0-4.8) Monocytes # (Auto) 0.2 TH/MM3 (0-0.9) Eosinophils # (Auto) 0.0 TH/MM3 (0-0.4) Basophils # (Auto) 0.0 TH/MM3 (0-0.2) CBC Comment DIFF FINAL Differential Comment Sodium Level 134 MEQ/L (136-145) Potassium Level 5.4 MEQ/L (3.5-5.1) Chloride Level 98 MEQ/L (98-107) Carbon Dioxide Level 23.5 MEQ/L (21.0-32.0) Anion Gap 13 MEQ/L (5-15) Blood Urea Nitrogen 39 MG/DL (7-18) Creatinine 3.34 MG/DL (0.60-1.30) Estimat Glomerular Filtration 24 ML/MIN (>89) Rate Random Glucose 157 MG/DL (74-106) Calcium Level 6.8 MG/DL (8.5-10.1) Protein Corrected Calcium 7.4 MG/DL (8.5-10.1) Phosphorus Level 8.6 MG/DL (2.5-4.9) Lactate Dehydrogenase 542 U/L (87-241) Total Protein 5.9 GM/DL (6.4-8.2) Test 05/03/17 05/04/17 05/04/17 05/04/17 19:30 04:50 12:00 19:20 Activated Partial 40.1 SEC 28.0 SEC 60.9 SEC 122.1 SEC Thromboplast Time (24.3-30.1) (24.3-30.1) (24.3-30.1) (24.3-30.1) White Blood Count 13.2 TH/MM3 (4.0-11.0) Red Blood Count 2.72 MIL/MM3 (4.50-5.90) Hemoglobin 8.0 GM/DL (13.0-17.0) Hematocrit 23.5 % (39.0-51.0) Mean Corpuscular Volume 86.4 FL (80.0-100.0) Mean Corpuscular Hemoglobin 29.3 PG (27.0-34.0) Mean Corpuscular Hemoglobin 33.9 % Concent (32.0-36.0) Red Cell Distribution Width 17.2 % (11.6-17.2) Platelet Count 270 TH/MM3 (150-450) Mean Platelet Volume 7.2 FL (7.0-11.0) Neutrophils (%) (Auto) 92.9 % (16.0-70.0) Lymphocytes (%) (Auto) 2.0 % (9.0-44.0) Monocytes (%) (Auto) 5.0 % (0.0-8.0) Eosinophils (%) (Auto) 0.0 % (0.0-4.0) Basophils (%) (Auto) 0.1 % (0.0-2.0) Neutrophils # (Auto) 12.2 TH/MM3 (1.8-7.7) Lymphocytes # (Auto) 0.3 TH/MM3 (1.0-4.8) Monocytes # (Auto) 0.7 TH/MM3 (0-0.9) Eosinophils # (Auto) 0.0 TH/MM3 (0-0.4) Basophils # (Auto) 0.0 TH/MM3 (0-0.2) CBC Comment DIFF FINAL Differential Comment Sodium Level 132 MEQ/L (136-145) Potassium Level 4.2 MEQ/L (3.5-5.1) Chloride Level 96 MEQ/L (98-107) Carbon Dioxide Level 22.7 MEQ/L (21.0-32.0) Anion Gap 13 MEQ/L (5-15) Blood Urea Nitrogen 59 MG/DL (7-18) Creatinine 4.87 MG/DL (0.60-1.30) Estimat Glomerular Filtration 15 ML/MIN (>89) Rate Random Glucose 203 MG/DL (74-106) Calcium Level 6.9 MG/DL (8.5-10.1) Protein Corrected Calcium 7.4 MG/DL (8.5-10.1) Phosphorus Level 6.6 MG/DL (2.5-4.9) Lactate Dehydrogenase 554 U/L (87-241) Total Protein 6.1 GM/DL (6.4-8.2) Test 05/05/17 05/05/17 05/05/17 05/05/17 01:15 04:25 05:29 06:50 Activated Partial 56.0 SEC 78.6 SEC Thromboplast Time (24.3-30.1) (24.3-30.1) White Blood Count 6.3 TH/MM3 (4.0-11.0) Red Blood Count 2.68 MIL/MM3 (4.50-5.90) Hemoglobin 8.0 GM/DL (13.0-17.0) Hematocrit 22.8 % (39.0-51.0) Mean Corpuscular Volume 84.8 FL (80.0-100.0) Mean Corpuscular Hemoglobin 29.7 PG (27.0-34.0) Mean Corpuscular Hemoglobin 35.0 % Concent (32.0-36.0) Red Cell Distribution Width 16.6 % (11.6-17.2) Platelet Count 229 TH/MM3 (150-450) Mean Platelet Volume 7.0 FL (7.0-11.0) Sodium Level 132 MEQ/L (136-145) Potassium Level 4.0 MEQ/L (3.5-5.1) Chloride Level 98 MEQ/L (98-107) Carbon Dioxide Level 20.1 MEQ/L (21.0-32.0) Anion Gap 14 MEQ/L (5-15) Blood Urea Nitrogen 66 MG/DL (7-18) Creatinine 5.35 MG/DL (0.60-1.30) Estimat Glomerular Filtration 14 ML/MIN (>89) Rate Random Glucose 122 MG/DL (74-106) Uric Acid 6.6 MG/DL (2.6-7.2) Calcium Level 7.1 MG/DL (8.5-10.1) Protein Corrected Calcium 7.9 MG/DL (8.5-10.1) Phosphorus Level 5.4 MG/DL (2.5-4.9) Magnesium Level 2.3 MG/DL (1.5-2.5) Total Protein 5.5 GM/DL (6.4-8.2) Blood Gas Puncture Site RT RADIAL Blood Gas Patient Temperature 98.6 Blood Gas HCO3 19 mmol/L (22-26) Blood Gas Base Excess -6.5 mmol/L (-2-2) Blood Gas Oxygen Saturation 97 % (90-100) Arterial Blood pH 7.30 (7.380-7.420) Arterial Blood Partial 39 mmHg (38-42) Pressure CO2 Arterial Blood Partial 142 mmHg Pressure O2 (61-120) Arterial Blood Oxygen Content 11.5 Vol % (12.0-20.0) Arterial Blood 1.2 % (0-4) Carboxyhemoglobin Arterial Blood Methemoglobin 1.3 % (0-2) Blood Gas Hemoglobin 8.3 G/DL (12.0-16.0) Oxygen Delivery Device VENTILATOR Blood Gas Ventilator Setting [id number]/VT500/[id number] Blood Gas Inspired Oxygen 40 % Test 05/05/17 14:55 Activated Partial 80.7 SEC Thromboplast Time (24.3-30.1) Result Diagram: 05/05/1742405/05/17424 Imaging Last 24 hours Impressions Chest X-Ray 05/05/17 0600 Signed Impressions: Service Date/Time: Friday, May 05, 2017 03:21 - CONCLUSION: 1. Stable bilateral pleural effusions with associated volume loss and/or airspace consolidation. 2. Stable mass in the right peritracheal region. Tacos Perez MD Procedures * 05/02/17 -intubation * 04/22/17 -axillary lymph node biopsy * 04/27/17 -bone marrow biopsy * 04/28/17 -MediPort placement . Assessment and Plan Disease Oriented Problem List: (1) Non-Hodgkin lymphoma (2) Acute pancreatitis (3) ALDO (acute kidney injury) Symptom Scale: (1) Shortness of breath 0-10 Scale: Unable to quantify Comment: Bilateral pleural effusions/acute hypoxemic respiratory failure. Orally intubated on mechanical ventilation. (2) Debility 0-10 Scale: Unable to quantify Pertinent Non-Medical Issues Psychosocial: Single, unemployed. Has 8 children. Highest level of education is eighth grade. No service. Spiritual: No islam affiliations. Legal: Designation of healthcare surrogate completed. Ethical issues impacting care: No ethical issues identified. Patient participating in medical decision-making. . Important Contacts HCS/mother Nu Seals . Alt [facility]/sister France Garcia . . Prognosis Mr. Werner is a 47-year-old male with no significant medical history, recently diagnosed with with aggressive CD10 positive B-cell non-Hodgkin lymphoma. Clinical course complicated by PE status post TPA, cardiogenic shock, acute hypoxemic respiratory failure requiring intubation and mechanical ventilation and worsening acute kidney injury. Patient at a very high risk for sudden cardiac and additional complications. Prognosis is guarded. . Code Status: Full Code Plan * CODE STATUS: FULL code. * HEALTHCARE DECISION-MAKING: Patient unable to participate in medical decision- making secondary to clinical condition, orally intubated on mechanical ventilation -Sedated. Designation of healthcare surrogate completed, patient designated his mother Oxana Seals as HCS and alt HCS sister France Garcia. * GOALS OF CARE: pt's mother acting as HCS, electing to continue aggressive management to include full code. Family verbalized being hopeful but realistic regarding patient's critical condition. Family receptive to palliative care f/ u for medical updates and emotional support. * SYMPTOMS: = Shortness of breath, secondary to bilateral pleural effusions/ acute hypoxemic respiratory failure. Currently intubated on mechanical ventilation. Pulmonology following. = Debility, secondary to burden of disease , acute illness, prolonged hospitalization. * Case discussed with Dr. Russell and bedside RN Christine. * Palliative care contact information has been provided to patient and family. * Palliative care will continue to follow-up for further clarifications of goals of care, provide emotional support as patient's clinical course continues to evolve. . Time Spent Total Floor Time (mins): 23 (Total time to include review of medical records, physical exam, telephone conversation with patient's son and case discussion with Dr. Russell and bedside RN.) >50% Counseling/Coord of Care: Yes Attestation To help prompt me to consider important information that might be impacting today's encounter and assessment, information from prior notes written by myself or my colleagues may have been "brought forward" into today's note. My signature on this note, however, is an attestation that I personally performed the exam, history, and/or decision-making noted today, and, unless otherwise indicated, the interactions with patient, family, and staff as well as the review of records all occurred today. I also attest that the listed assessment and stated plan reflect my best clinical judgment today based on the combination of historical information, prior notes, and today's exam/ interactions. When time spent is documented, it refers only to time spent today by the signer, or if indicated, combined time spent today by collaborating physician/nurse practitioner. Demetrice Brody May 05, 2017 16:32
[2017-05-05] MEDS: ARTIFICIAL TEARS OPTH SOLN 15 ML BTL EACH EYE SCH (18:00)
--- NOTE | 2017-05-05 18:04 | HHI.CCPN ---
Subjective Remarks/Hospital Course Hospital Course: This is a 47yM who was originally admitted for acute pancreatitis and during this hospital admission found to have an acute aggressive non-hodgkin's lymphoma. he has had progressive shortness of breath secondary to bilateral pleural effusions and adenopathy. He rapid responsed today for worsening hypoxemia on a NRB and in severe respiratory distress. When I evaluated the patient on arrival to the C, he is in severe respiratory distress, unable to speak, RR > 40, spo2 92% on NRB, using accessory muscles. CXR without over fluid overload. additional information is unobtainable secondary to the clinical condition of the patient. Subjective: 05/03: TPA given overnight. started on heparin drip after. this morning, oligoaneuric with Cr rise to 3.3 this AM. also more hypotensive, although fio2 significantly improved to 45%. bilateral pleural effusions persist. echo yesterday with biventricular dysfunction. hgb stable. 05/04:Flolan decreased to 20 from 30 ngs. Slight improvement in chest x-ray. Epinephrine infusion currently being weaned . Nephrology consulted secondary to continue rising creatinine. 05/05: Hemodynamically stable, epinephrine weaned off yesterday. Nephrology following Dr. Haley with plans for possible dialysis tomorrow. Discussed with hematology oncology plan for reinitiation of chemotherapy with initiation of dialysis. Respiratory system with Flolan decrease stable. Plan to decrease Flolan to 10 ng, with potential for cessation in a.m.. Objective Vital Signs Date Time Temp Pulse Resp B/P Pulse Ox O2 Delivery O2 Flow Rate FiO2 05/05/17 15:36 100 40 05/05/17 06:00 76 05/05/17 04:00 98.0 05/05/17 04:00 14 104/56 05/03/17 19:00 Mechanical Ventilator 05/02/17 08:40 15.00 Intake and Output 05/04/17 05/04/17 05/05/17 08:00 16:00 00:00 Intake Total 1215 ml 1773 ml 996 ml Output Total 75 ml 200 ml 225 ml Balance 1140 ml 1573 ml 771 ml Result Diagram: 05/05/17 0425 05/05/17 0425 Other Results Laboratory Tests Test 05/05/17 05:29 Blood Gas Puncture Site RT RADIAL Blood Gas Patient Temperature 98.6 Blood Gas HCO3 19 mmol/L (22-26) Blood Gas Base Excess -6.5 mmol/L (-2-2) Blood Gas Oxygen Saturation 97 % (90-100) Arterial Blood pH 7.30 (7.380-7.420) Arterial Blood Partial 39 mmHg (38-42) Pressure CO2 Arterial Blood Partial 142 mmHg Pressure O2 (61-120) Arterial Blood Oxygen Content 11.5 Vol % (12.0-20.0) Arterial Blood 1.2 % (0-4) Carboxyhemoglobin Arterial Blood Methemoglobin 1.3 % (0-2) Blood Gas Hemoglobin 8.3 G/DL (12.0-16.0) Oxygen Delivery Device VENTILATOR Blood Gas Ventilator Setting AC/RR14/VT500/PEEP7 Blood Gas Inspired Oxygen 40 % Imaging Last Impressions Chest X-Ray 05/03/17 0600 Signed Impressions: Service Date/Time: Wednesday, May 03, 2017 03:46 - CONCLUSION: Improving infiltrates. No Tacos Garcia MD Head CT 05/03/17 0000 Signed Impressions: Service Date/Time: Wednesday, May 03, 2017 17:22 - CONCLUSION: No acute intracranial disease. No hemorrhage seen. Tray Patel MD CT Angiography 05/02/17 0000 Signed Impressions: Service Date/Time: Tuesday, May 02, 2017 11:10 - CONCLUSION: 1. There is pulmonary embolus in the right pulmonary artery, right upper lobe and lower lobe branches. 2. Resorption of previously seen gas in the left axilla with fluid collection at this site with postprocedural change and possibly postprocedural hemorrhage not significantly changed in size. 3. Interval development of right lung airspace process may represent postobstructive pneumonia and there is mucus within the trachea not present yesterday. 4. Right pleural effusion is smaller and left pleural effusion is larger. 5. No change in bulky adenopathy. Leonor Chavez MD Upper Extremity Ultrasound 04/30/17 0000 Signed Impressions: Service Date/Time: April 12:25 - CONCLUSION: There some superficial thrombosis of a vein in the forearm. The deep venous system is patent. Large fluid collection left axilla. Significant soft tissue edema throughout the upper arm. Rinku Hillman MD Thoracentesis Ultrasound 04/30/17 0000 Signed Impressions: Service Date/Time: April 12:14 - CONCLUSION: Uncomplicated ultrasound guided thoracentesis. Tray Patel MD Port Line Insertion 04/27/17 0000 Signed Impressions: Service Date/Time: Thursday, April 27, 2017 14:56 - CONCLUSION: 1. Bulky bilateral lower cervical lymphadenopathy. 2. Uncomplicated ultrasound and fluoroscopic guided implanted central venous port catheter placement as described in detail above. An 8 [place] Power port was placed. Liang Peralta MD Bone Biopsy CT 04/27/17 0000 Signed Impressions: Service Date/Time: Thursday, April 27, 2017 16:22 - CONCLUSION: 1. Uncomplicated CT guided bone marrow aspirate. 2. Uncomplicated CT guided bone marrow biopsy. Tray Patel MD Chest CT 04/25/17 0000 Signed Impressions: Service Date/Time: Wednesday, April 26, 2017 19:00 - CONCLUSION: The right pleural effusion is slightly larger on the left side has not changed. Extensive bulky adenopathy as before and malignancies such as lymphoma is suspected. Leonor Chavez MD Gall Bladder Ultrasound 04/22/17 0000 Signed Impressions: Service Date/Time: Saturday, April 22, 2017 07:35 - CONCLUSION: Small liver with focal abdomen only incompletely evaluated. Large right pleural effusion. effusion. Kirk Briceño MD FACR Abdomen CT 04/20/17 0000 Signed Impressions: Service Date/Time: Thursday, April 20, 2017 19:40 - CONCLUSION: Limited exam because of lack of intravenous contrast. Lymphoma is suspected. Pathological diagnosis could be obtained with ultrasound biopsy of the cervical, axillary or inguinal adenopathy. Kirk Briceño MD FACR Last Impressions Chest X-Ray 05/02/17 0000 Signed Impressions: Service Date/Time: Tuesday, May 02, 2017 08:11 - CONCLUSION: There is mild improvement in aeration of the right lower lung, otherwise not significantly changed. Leonor Chavez MD Upper Extremity Ultrasound 04/30/17 0000 Signed Impressions: Service Date/Time: April 12:25 - CONCLUSION: There some superficial thrombosis of a vein in the forearm. The deep venous system is patent. Large fluid collection left axilla. Significant soft tissue edema throughout the upper arm. Rinku Hillman MD Thoracentesis Ultrasound 04/30/17 0000 Signed Impressions: Service Date/Time: April 12:14 - CONCLUSION: Uncomplicated ultrasound guided thoracentesis. Tray Patel MD Port Line Insertion 04/27/17 0000 Signed Impressions: Service Date/Time: Thursday, April 27, 2017 14:56 - CONCLUSION: 1. Bulky bilateral lower cervical lymphadenopathy. 2. Uncomplicated ultrasound and fluoroscopic guided implanted central venous port catheter placement as described in detail above. An 8 [place] Power port was placed. Liang Peralta MD Bone Biopsy CT 04/27/17 0000 Signed Impressions: Service Date/Time: Thursday, April 27, 2017 16:22 - CONCLUSION: 1. Uncomplicated CT guided bone marrow aspirate. 2. Uncomplicated CT guided bone marrow biopsy. Tray Patel MD Chest CT 04/25/17 0000 Signed Impressions: Service Date/Time: Wednesday, April 26, 2017 19:00 - CONCLUSION: The right pleural effusion is slightly larger on the left side has not changed. Extensive bulky adenopathy as before and malignancies such as lymphoma is suspected. Leonor Chavez MD Gall Bladder Ultrasound 04/22/17 0000 Signed Impressions: Service Date/Time: Saturday, April 22, 2017 07:35 - CONCLUSION: Small liver with focal abdomen only incompletely evaluated. Large right pleural effusion. effusion. Kirk Briceño MD FACR Abdomen CT 04/20/17 0000 Signed Impressions: Service Date/Time: Thursday, April 20, 2017 19:40 - CONCLUSION: Limited exam because of lack of intravenous contrast. Lymphoma is suspected. Pathological diagnosis could be obtained with ultrasound biopsy of the cervical, axillary or inguinal adenopathy. Kirk Briceño MD FACR Objective Remarks General: Well-nourished well-developed middle-aged male, lying in bed, critically ill, intubated, sedated heent: perrl. mucous membranes moist neck: no jvd. trachea midline orotracheally intubated chest: decreased BS at the bases bilaterally. equal chest rise. PRVC, 45% fio2. cv: tachycardic rate, regular rhythm. No murmurs rubs or gallops abd: soft, nontender, nondistended. no guarding. extr: trace peripheral edema. distal pulses 1+ neuro: RASS -3. w/d x 4. does not follow commands. sedated. Procedures 04/[address] excision biopsy 04/27- port placement 05/02-TPA A/P Assessment and Plan Assessment: 47yM with aggressive large B cell lymphoma, acute pancreatitis, now with submassive PE, acute cardiogenic shock, acute hypoxic respiratory failure, now oligoaneuric acute kidney injury secondary to shock. Currently inotropic therapy with epinephrine and inhaled flolan , decreased for RV support. Remains very critically ill. Will be unable to add invasive monitoring until his TPA window x 24h is complete. Also will need drainage of his pleural effusions, although will hold off for now given cardiogenic shock. Plan by Systems: Neuro: -- Wean Propofol, continue fentanyl infusions for goal RASS -2 -- repeat head on 05/03 CT 24h after TPA-no abnormality Respiratory: Acute Hypoxic Respiratory Failure Acute Submassive Pulmonary Embolism Bilateral pleural effusions, large, acute -- vent bundle, hob at 30 degrees, nebs -- wean fio2 for goal spo2 > 90% -- inhaled flolan decreased to 10 ng/kg/min for RV support in the setting of acute PE -- Follow-up chest x-ray and ABGs --Begin CPAP trials in a.m. Cardiovascular: Acute Submassive Pulmonary Embolism Right Heart Dysfunction Global severe left ventricular systolic dysfunction Cardiogenic Shock -- high risk for sudden cardiac s/p acute PE -- Epinephrine discontinued 05/04 -- Maintain a goal MAP > 65 mmHg -- 2d echo 05/02: EF 30-35%, RV dysfunction with dilation --Repeat ECHO limited study on 05/09 Renal: Acute Kidney Injury -- likely secondary to cardiogenic shock - Nephrology following, Dr. Haley, possible initiation of dialysis tomorrow -- continue shepard with strict I/Os. FEN/GI: Hyperphosphatemia Hyperkalemia Hypocalcemia Acute protein calorie malnutrition- severe -- per the echo from yesterday, intravascular volume status is appropriate, but very likely will get volume overloaded today given severe oliguria. will minimize excess iv fluids -- Nutrition consult to begin tube feeds --GI consulted -- start PhosLo -- daily electrolytes, replete per ICU protocol Heme/ID Acute Large Cell B-cell lymphoma Pulmonary Embolism -- hematology/oncology following Dr. Connelly-tentative plan to resume CHOP therapy with initiation of hemodialysis -- chemo on hold secondary to his acute life-threatening illnesses. -- continue heparin drip, goal PTT 60 - 80. Will eventually transition to Coumadin Endocrine: Hyperglycemia of Critical Illness -- SSI, q6h, med scale Msk: --PT evaluation and treat --Multi-Podus boots prevention of foot drop --PT daily functional maintenance Prophylaxis: DVT: SCDs, heparin drip GI: protonix Lines: -- port right chest -- shepard Dispo: This patient remains critically ill with one or more organ systems which are or may become a threat to life. I have spent in excess of 45 minutes discontinuously in the care and management of this patient. This time is exclusive of procedures, and includes, but is not limited to, evaluation of the patient, review of the medical record, discussions with family, consultants, nursing staff, or respiratory therapy, and documentation in the medical record. Physician Lyudmila Aldrich MD May 05, 2017 18:04
--- NOTE | 2017-05-05 18:43 | HHI.PR ---
Subjective Remarks Sedated Vent dependant . On PEEP 8 and FIo2 40 %. No Fever. On heparin and Flolan. Objective Vital Signs Date Time Temp Pulse Resp B/P Pulse Ox O2 Delivery O2 Flow Rate FiO2 05/05/17 18:00 72 05/05/17 16:00 97.1 73 15 109/56 100 05/05/17 16:00 40 05/05/17 16:00 73 05/05/17 15:36 100 40 05/05/17 14:00 68 05/05/17 12:00 97.4 70 14 104/59 100 05/05/17 12:00 40 05/05/17 12:00 70 05/05/17 11:01 100 40 05/05/17 10:00 71 05/05/17 08:20 100 40 05/05/17 08:00 97.0 72 17 157/81 100 05/05/17 08:00 72 05/05/17 08:00 40 05/05/17 06:00 76 05/05/17 04:09 100 40 05/05/17 04:00 72 05/05/17 04:00 98.0 05/05/17 04:00 40 05/05/17 04:00 98.0 72 14 104/56 100 05/05/17 02:00 72 05/05/17 01:09 99 40 05/05/17 00:00 76 05/05/17 00:00 40 05/05/17 00:00 97.7 76 14 119/57 100 05/04/17 22:00 71 05/04/17 20:00 97.7 75 14 114/55 100 05/04/17 20:00 40 05/04/17 20:00 75 05/04/17 19:45 98 40 I/O 05/04/17 05/04/17 05/04/17 05/05/17 05/05/17 05/05/17 07:00 15:00 23:00 07:00 15:00 23:00 Intake Total 1215 ml 1773 ml 996 ml 1125 ml 975 ml Output Total 75 ml 200 ml 225 ml 75 ml 100 ml Balance 1140 ml 1573 ml 771 ml 1050 ml 875 ml IV Total 578 ml 907 ml 419 ml 682 ml 308 ml Tube Feeding 437 ml 666 ml 577 ml 443 ml 467 ml Other 200 ml 200 ml 200 ml Output Urine Total 75 ml 200 ml 225 ml 75 ml 100 ml # Bowel Movements 0 0 Result Diagram: 05/05/1742405/05/17424 Objective Remarks GENERAL: This is a well-nourished, well-developed patient,intubated and on Vent support. HEENT: ET tube in. CARDIOVASCULAR: Regular rate and rhythm without murmurs, gallops, or rubs. RESPIRATORY: Diffuse expiratory wheezes, diminish breath sounds bilaterally. GASTROINTESTINAL: Abdomen soft, non-tender,nondistended. + bowel sounds MUSCULOSKELETAL: Extremities without clubbing, cyanosis, or edema. NEURO: Sedated. Assessment and Plan Assessment and Plan ASSESSMENT 1. Acute kidney injury. 2. Respiratory failure. 3. Pulmonary embolism. 4. Non-Hodgkin's lymphoma. 5. Anemia. 6. Hyperphosphatemia. Plan : 1. Wean FIo2 and PEEP to keep sat >92. 2. Nebs qid , duoneb 3. Anticoagulation as Ordered/Heparin 4. CXR,CBC,BMP in am 5. Tube feeds at 50 CC 6. CPAP trial when stable. 7. Continue Dialysis as planned. Con Pierre MD May 05, 2017 18:43
--- NOTE | 2017-05-05 21:16 | RADRPT ---
EXAM DATE/TIME: 05/05/2017 20:06 [facility] COMPARISON: No previous studies available for comparison. INDICATIONS : Increased Bun and Creatinine. MEDICAL HISTORY : Nausea. Depression. Pleural effusion. SURGICAL HISTORY : Thoracentesis. ENCOUNTER: Subsequent ACUITY: 4-6 days PAIN SCORE: Nonresponsive. LOCATION: Bilateral flank MEASUREMENTS: RIGHT KIDNEY: 12.0 x 6.0 x 4.9 cm LEFT KIDNEY: 9.8 x 5.5 x 5.2 cm FINDINGS: RIGHT KIDNEY: Renal cortex is normal in thickness and borderline increased echotexture. No hydronephrosis, stone, or mass. LEFT KIDNEY: Renal cortex is normal in thickness and borderline increased echotexture. No hydronephrosis, stone, or mass. BLADDER: Within normal limits given the degree of distension. Minimal free fluid. Bilateral pleural effusions. CONCLUSION: 1. Kidneys are borderline echogenic which can be seen with medical renal disease. 2. No evidence of hydronephrosis. 3. Abdominal ascites. 4. Multiple dilated bowel loops. 5. Bilateral pleural effusions. Tray Patel MD on May 05, 2017 at 21:11 Board Certified Radiologist. This report was verified electronically.
[2017-05-05 23:10] LABS: APTT (PATIENT) 57.4 SEC (24.3-30.1)
[2017-05-06] VITALS (17 sets, daily range): BP systolic 91–109; BP diastolic 53–58; PULSE 73–84; RESP 17–25; TEMP 97.5–99; O2SAT 97–100
[2017-05-06] MEDS: ARTIFICIAL TEARS OPTH SOLN 15 ML BTL EACH EYE SCH ×3 (02:48→17:55)
[2017-05-06] MEDS: CEFEPIME INJ 2,000 MG in SODIUM CHLORIDE 0.9% INJ 100 ML IV SCH (03:05)
[2017-05-06] MEDS: RESP: ALBUTEROL 2.5 MG/IPRATROPIUM 0.5 MG NEB (SCH) INH (03:23)
[2017-05-06] MEDS: CHLORHEXIDINE GLUCONATE 2 % 1 PACK (2 CLOTHS)(taper/protocol) TOPICAL SCH (04:00)
[2017-05-06 04:40] LABS: APTT (PATIENT) 52.5 SEC (24.3-30.1)
[2017-05-06 04:41] LABS: BICARBONATE 21.1 MEQ/L (21.0-32.0); MAGNESIUM 2.3 MG/DL (1.5-2.5); POTASSIUM 4.7 MEQ/L (3.5-5.1); URIC ACID 6.9 MG/DL (2.6-7.2)
[2017-05-06 04:45] LABS: HEMATOCRIT 24.2 % (39.0-51.0); MEAN CELL VOLUME 84.6 FL (80.0-100.0); MEAN CORPUSCULAR HEMOGLOBIN 29.2 PG (27.0-34.0); MEAN CORPUSCULAR HGB CONC 34.5 % (32.0-36.0); PLATELET COUNT 251 TH/MM3 (150-450); RED BLOOD COUNT 2.87 MIL/MM3 (4.50-5.90); RED CELL DISTRIBUTION WIDTH 16.7 % (11.6-17.2); REVIEW FLAG FINAL; WHITE BLOOD COUNT 6.5 TH/MM3 (4.0-11.0)
[2017-05-06] MEDS: INSULIN NovoLIN REGULAR SUPPLEMENTAL SCALE SQ SCH ×4 (06:00→17:20)
[2017-05-06] MEDS: METOCLOPRAMIDE HCL 10 MG/2 ML VIAL IV PUSH SCH ×3 (06:03→22:22)
[2017-05-06] MEDS: EPOPROSTENOL NEB SOLUTION 20 NG/KG/MIN 100 ML NEB SCH ×2 (06:04)
[2017-05-06] MEDS: PROPOFOL 1000 MG/100 ML INJ 100 ML IV SCH ×4 (06:04→18:41)
[2017-05-06 06:19] LABS: BLOOD GAS BASE EXCESS -4.8 mmol/L (-2-2); BLOOD GAS CARBOXYHEMOGLOBIN 1.1 % (0-4); BLOOD GAS HCO3 20 mmol/L (22-26); BLOOD GAS METHEMOGLOBIN 1.4 % (0-2); BLOOD GAS O2 HGB SATURATION 96 % (90-100); BLOOD GAS PCO2 39 mmHg (38-42); BLOOD GAS PO2 123 mmHg (61-120); BLOOD GAS TOTAL HGB 9.5 G/DL (12.0-16.0); TEMP CORR TO 98.6
[2017-05-06 06:20] LABS: CRITICAL VALUE NO; DRAW SITE LT RADIAL; FIO2 40 %; NUMBER OF ARTERIAL PUNCTURES 1; OXYGEN DEVICE VENTILATOR; STAT NO; ULNAR PULSE PRESENT; VENT SETTINGS AC/RR14/VT500/PEEP7
[2017-05-06] MEDS: HEPARIN-D5W 25,000 U/250 ML 250 ML IV SCH (06:51)
[2017-05-06] MEDS: ALLOPURINOL 100 MG TAB PO SCH (08:16)
[2017-05-06] MEDS: CALCIUM ACETATE 667 MG CAP PO SCH ×3 (08:16→17:55)
[2017-05-06] MEDS: NIFEdipine 90 MG SUSTAINED RELEASE TAB PO SCH (08:16)
[2017-05-06] MEDS: CHLORHEXIDINE 0.12% (ORAL KIT) 15 ML CUP MT SCH ×2 (08:16→22:21)
[2017-05-06] MEDS: DOCUSATE SODIUM 50 MG/SENNA 8.6 MG TAB PO SCH ×2 (08:17→22:22)
[2017-05-06] MEDS: PANTOPRAZOLE SOD 40 MG DELAYED RELEASE TAB PO SCH (08:17)
--- NOTE | 2017-05-06 10:26 | HHI.IDPN ---
Subjective Subjective Remarks Patient is a 47-year-old male, initially presented to the hospital complaining of abdominal pain, nausea, and vomiting. He was found to have pancreatitis, and he also had elevated liver function tests. There is history of previous alcohol abuse. He was also found to have a right base pneumonia, and he was started on a Zithromax and Rocephin. Patient also had some abnormality on his urinalysis and was also being treated for UTI. His imaging study showed right hilar mass, and he had evidence on exam of supraclavicular lymph nodes. CT of the chest revealed pleural effusion, and extensive mediastinal and axillary lymphadenopathy. 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 Oncology has been following the patient, and patient was started on chemotherapy on April 30. Patient's pancreatitis has improved although he still has some abdominal pain. He got Rituxan on on May 08, and he is currently getting Decadron, cyclophosphamide, as well as etoposide /Doxorubicin/Vincristine. This morning he went into respiratory failure, and transferred to the ICU, and ended up getting intubated. Pulmonary started seeing the patient around April 29 and at that time he had shortness of breath. He had bilateral pleural effusion, and underwent thoracentesis on the right, and the fluid is exudative. Patient had CTA today, and it showed pulmonary embolism, as well as no infiltrates on the right side. He is afebrile. Currently on the vent, and on sedation. Notes reviewed Temps ok Sedated on the vent Creatinine continues to rise, UO decreasing Renal saw patient yesterday Renal US no hydro Urine eos negative Palliative medicine notes reviewed - family still wants aggressive measures Echo noted Getting chemo for NHL Last CXR - stable Sputum normal harris BC negative Antibiotics Cefepime Lines Port Past Medical History Previous tobacco and ETOH use Allergies: Coded Allergies: No Known Allergies (Unverified , 04/18/17) Objective . Vital Signs Date Time Temp Pulse Resp B/P Pulse Ox O2 Delivery O2 Flow Rate FiO2 05/06/17 10:00 75 05/06/17 08:00 40 05/06/17 08:00 75 05/06/17 08:00 97.7 75 25 99/55 98 05/06/17 07:36 100 40 05/06/17 06:00 74 05/06/17 04:04 100 40 05/06/17 04:00 40 05/06/17 04:00 97.9 75 19 102/57 100 05/06/17 04:00 75 05/06/17 02:00 75 05/06/17 01:35 100 40 05/06/17 00:00 97.9 73 18 109/57 05/06/17 00:00 73 05/06/17 00:00 40 05/05/17 22:00 74 05/05/17 21:03 100 40 05/05/17 20:00 72 05/05/17 20:00 40 05/05/17 20:00 97.7 05/05/17 20:00 97.7 74 17 109/55 100 05/05/17 20:00 74 05/05/17 18:00 72 05/05/17 16:00 97.1 73 15 109/56 100 05/05/17 16:00 40 05/05/17 16:00 73 05/05/17 15:36 100 40 05/05/17 14:00 68 05/05/17 12:00 97.4 70 14 104/59 100 05/05/17 12:00 40 05/05/17 12:00 70 05/05/17 11:01 100 40 05/05/17 05/05/17 05/06/17 15:00 23:00 07:00 Intake Total 975 ml 862 ml 955 ml Output Total 100 ml 50 ml 100 ml Balance 875 ml 812 ml 855 ml IV Total 308 ml 321 ml 429 ml Tube Feeding 467 ml 541 ml 526 ml Other 200 ml Output Urine Total 100 ml 50 ml 100 ml # Bowel Movements 0 . Laboratory Tests Test 05/05/17 05/06/17 04:25 04:00 White Blood Count 6.3 TH/MM3 6.5 TH/MM3 Red Blood Count 2.68 MIL/MM3 2.87 MIL/MM3 Hemoglobin 8.0 GM/DL 8.4 GM/DL Hematocrit 22.8 % 24.2 % Mean Corpuscular Volume 84.8 FL 84.6 FL Mean Corpuscular Hemoglobin 29.7 PG 29.2 PG Mean Corpuscular Hemoglobin 35.0 % 34.5 % Concent Red Cell Distribution Width 16.6 % 16.7 % Platelet Count 229 TH/MM3 251 TH/MM3 Mean Platelet Volume 7.0 FL 7.0 FL Laboratory Tests Test 05/05/17 05/06/17 04:25 04:00 Sodium Level 132 MEQ/L 132 MEQ/L Potassium Level 4.0 MEQ/L 4.7 MEQ/L Chloride Level 98 MEQ/L 96 MEQ/L Carbon Dioxide Level 20.1 MEQ/L 21.1 MEQ/L Anion Gap 14 MEQ/L 15 MEQ/L Blood Urea Nitrogen 66 MG/DL 73 MG/DL Creatinine 5.35 MG/DL 5.84 MG/DL Estimat Glomerular Filtration 14 ML/MIN 13 ML/MIN Rate Random Glucose 122 MG/DL 112 MG/DL Uric Acid 6.6 MG/DL 6.9 MG/DL Calcium Level 7.1 MG/DL 7.8 MG/DL Protein Corrected Calcium 7.9 MG/DL Phosphorus Level 5.4 MG/DL 4.4 MG/DL Magnesium Level 2.3 MG/DL 2.3 MG/DL Total Protein 5.5 GM/DL Lactate Dehydrogenase 458 U/L Imaging Last Impressions Chest X-Ray 05/03/17 0600 Signed Impressions: Service Date/Time: Wednesday, May 03, 2017 03:46 - CONCLUSION: Improving infiltrates. No Tacos Garcia MD Head CT 05/02/17 0000 Signed Impressions: Service Date/Time: Tuesday, May 02, 2017 16:45 - CONCLUSION: No acute intracranial disease. Tray Patel MD CT Angiography 05/02/17 0000 Signed Impressions: Service Date/Time: Tuesday, May 02, 2017 11:10 - CONCLUSION: 1. There is pulmonary embolus in the right pulmonary artery, right upper lobe and lower lobe branches. 2. Resorption of previously seen gas in the left axilla with fluid collection at this site with postprocedural change and possibly postprocedural hemorrhage not significantly changed in size. 3. Interval development of right lung airspace process may represent postobstructive pneumonia and there is mucus within the trachea not present yesterday. 4. Right pleural effusion is smaller and left pleural effusion is larger. 5. No change in bulky adenopathy. Leonor Chavez MD Upper Extremity Ultrasound 04/30/17 0000 Signed Impressions: Service Date/Time: April 12:25 - CONCLUSION: There some superficial thrombosis of a vein in the forearm. The deep venous system is patent. Large fluid collection left axilla. Significant soft tissue edema throughout the upper arm. Rinku Hillman MD Thoracentesis Ultrasound 04/30/17 0000 Signed Impressions: Service Date/Time: April 12:14 - CONCLUSION: Uncomplicated ultrasound guided thoracentesis. Tray Patel MD Port Line Insertion 04/27/17 0000 Signed Impressions: Service Date/Time: Thursday, April 27, 2017 14:56 - CONCLUSION: 1. Bulky bilateral lower cervical lymphadenopathy. 2. Uncomplicated ultrasound and fluoroscopic guided implanted central venous port catheter placement as described in detail above. An 8 [place] Power port was placed. Liang Peralta MD Bone Biopsy CT 04/27/17 0000 Signed Impressions: Service Date/Time: Thursday, April 27, 2017 16:22 - CONCLUSION: 1. Uncomplicated CT guided bone marrow aspirate. 2. Uncomplicated CT guided bone marrow biopsy. Tray Patel MD Chest CT 04/25/17 0000 Signed Impressions: Service Date/Time: Wednesday, April 26, 2017 19:00 - CONCLUSION: The right pleural effusion is slightly larger on the left side has not changed. Extensive bulky adenopathy as before and malignancies such as lymphoma is suspected. Leonor Chavez MD Gall Bladder Ultrasound 04/22/17 0000 Signed Impressions: Service Date/Time: Saturday, April 22, 2017 07:35 - CONCLUSION: Small liver with focal abdomen only incompletely evaluated. Large right pleural effusion. effusion. Kirk Briceño MD FACR Abdomen CT 04/20/17 0000 Signed Impressions: Service Date/Time: Thursday, April 20, 2017 19:40 - CONCLUSION: Limited exam because of lack of intravenous contrast. Lymphoma is suspected. Pathological diagnosis could be obtained with ultrasound biopsy of the cervical, axillary or inguinal adenopathy. Kirk Briceño MD FACR Physical Exam GENERAL: sedated on the vent, not in respiratory distress. SKIN: Warm and dry. No generalized rash, no ecchymoses and no evidence of embolic lesions. HEAD: Atraumatic. Normocephalic. No temporal wasting, or tenderness. EYES: Parsons conjunctiva. No petechia or hemorrhage. Pupils equal, round and reactive to light. Has dirty sclera. No injection or drainage. EARS, NOSE AND THROAT: Nose without bleeding or purulent nasal discharge. Mucous membranes moist. Orally intubated. Has poor dentition. NECK: Trachea midline. Supple and not tender, no meningeal signs. Has significant lymphadenopathy. CARDIOVASCULAR: Regular rate and rhythm. No murmurs, rubs or gallops heard RESPIRATORY: Bilateral rhonchi. Port look ok. ABDOMEN: Distended, hypoactive bowel sounds, tympanitic, no reaction to palpation. EXTREMITIES: No clubbing, cyanosis, or edema. No joint effusion. Warm. Has very dry skin both feet. NEUROLOGICAL: Sedated. No babinski, no clonus PSYCHIATRIC: Unable to assess LINE: Port no evidence of infection. Multiple PIV no evidence of infection : Singh in place, urine looks clear Assessment & Plan Remarks IMPRESSION Respiratory failure, with multiple PE on R, has new infiltrates, ?PNA, ? infarct - PE on R and infiltrates on R Has Tomi effusions, tap is exudative, ?lymphoma New NHL, on chemo 04/30 Pancreatitis, and elevated LFT likely due to ETOH Acute renal failure, ?sepsis, ?contrast RECOMMENDATION Continue Cefepime - give until 05/08 (7 days Rx) Follow C/S and adjust Abx Monitor progress Getting chemo Per renal, may need HD Maggy Solis MD May 06, 2017 10:26
[2017-05-06] MEDS: DEXAMETHASONE INJ 20 MG, GRANISETRON INJ 1 MG in SODIUM CHLORIDE 0.9% INJ 50 ML IV SCH (11:30)
--- NOTE | 2017-05-06 12:36 | HHI.PR ---
Subjective Remarks Sedated Vent dependant . On PEEP 8 and FIo2 40 %. Output was OK. On heparin and Flolan. Objective Vital Signs Date Time Temp Pulse Resp B/P Pulse Ox O2 Delivery O2 Flow Rate FiO2 05/06/17 10:00 75 05/06/17 08:00 40 05/06/17 08:00 75 05/06/17 08:00 97.7 75 25 99/55 98 05/06/17 07:36 100 40 05/06/17 06:00 74 05/06/17 04:04 100 40 05/06/17 04:00 40 05/06/17 04:00 97.9 75 19 102/57 100 05/06/17 04:00 75 05/06/17 02:00 75 05/06/17 01:35 100 40 05/06/17 00:00 97.9 73 18 109/57 05/06/17 00:00 73 05/06/17 00:00 40 05/05/17 22:00 74 05/05/17 21:03 100 40 05/05/17 20:00 72 05/05/17 20:00 40 05/05/17 20:00 97.7 05/05/17 20:00 97.7 74 17 109/55 100 05/05/17 20:00 74 05/05/17 18:00 72 05/05/17 16:00 97.1 73 15 109/56 100 05/05/17 16:00 40 05/05/17 16:00 73 05/05/17 15:36 100 40 05/05/17 14:00 68 I/O 05/05/17 05/05/17 05/05/17 05/06/17 05/06/17 05/06/17 07:00 15:00 23:00 07:00 15:00 23:00 Intake Total 1125 ml 975 ml 862 ml 955 ml Output Total 75 ml 100 ml 50 ml 100 ml Balance 1050 ml 875 ml 812 ml 855 ml IV Total 682 ml 308 ml 321 ml 429 ml Tube Feeding 443 ml 467 ml 541 ml 526 ml Other 200 ml Output Urine Total 75 ml 100 ml 50 ml 100 ml # Bowel Movements 0 Result Diagram: 05/06/17 04005/06/17 0400 Objective Remarks GENERAL: This is a well-nourished, well-developed patient,intubated and on Vent support. HEENT: ET tube in. CARDIOVASCULAR: Regular rate and rhythm without murmurs, gallops, or rubs. RESPIRATORY: Diffuse expiratory wheezes, Occ Crackles at Bases.diminish breath sounds bilaterally. GASTROINTESTINAL: Abdomen soft, non-tender,nondistended. + bowel sounds MUSCULOSKELETAL: Extremities without clubbing, cyanosis, or edema. NEURO: Sedated. Assessment and Plan Assessment and Plan ASSESSMENT 1. Acute kidney injury. 2. Respiratory failure. 3. Pulmonary embolism. 4. Non-Hodgkin's lymphoma. 5. Anemia. 6. Hyperphosphatemia. Plan : 1. Wean FIo2 and PEEP to keep sat >92. 2. Nebs qid , duoneb 3. Anticoagulation as Ordered/Heparin 4. CXR,CBC,BMP in am 5. Tube feeds at 50 CC 6. CPAP trial in am. 7. Continue Dialysis as planned. 8. Cont antibiotics. Con Pierre MD May 06, 2017 12:36
--- NOTE | 2017-05-06 12:45 | HHI.HCPN ---
Reason for visit a. To assist with evaluation and management of symptoms including: Debility. b. To assist medical decision maker(s) with: better understanding of current medical conditions; weighing benefits/burdens of medical treatment options; making medical treatment decisions. . Subjective/Interval History Mr. Werner is a 47-year-old male with no significant medical history, recently diagnosed with aggressive CD10 positive B-cell non-Hodgkin lymphoma. 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 Palliative care was consulted for assistance with goals of care and to determine healthcare surrogate decision maker. Patient remains in ICU. Orally intubated on mechanical ventilation. Worsening renal function, BUN/creatinine 73/5.84. Nephrology was consulted yesterday, plan for Vas-Cath placement and hemodialysis today. Renal ultrasound yesterday revealing borderline echogenic kidneys with no evidence of hydronephrosis. Patient hemodynamically stable, remains sedated on Diprivan and fentanyl. FiO2 40%, oxygen saturation in the high 90s. Chest x-ray today showing stable bilateral pleural effusions with associated consolidation. Plan to start CPAP trial today as tolerated. Tolerating tube feeds of 60 mL an hour. Remains afebrile. Telephone conversation with patient's mother Oxana Seals. Medical update provided. Discussed worsening kidney injury, nephrology consultation yesterday and plan for renal replacement therapy today. Mother to visit patient later this afternoon. Case discussed with [facility] and Dr. Russell. Palliative care will continue to follow-up for family support/medical updates. . Family/friend interactions See interval note. . Advance Directives Living Will: Never completed Health Care Surrogate: Copy in medical record Durable Power of Typewriter Aligner: Never completed Advance Directive Specifics Date completed: 04/29/17. . Health Care Surrogate(s): [facility]SC/mother Oxana Seals. Alternate surrogate -sister Fracne Garcia. . Documented care wishes: No living will completed. . Significant change in goals: Goals of care remain unchanged. . Objective Vital Signs Date Time Temp Pulse Resp B/P Pulse Ox O2 Delivery O2 Flow Rate FiO2 05/06/17 10:00 75 05/06/17 08:00 40 05/06/17 08:00 75 05/06/17 08:00 97.7 75 25 99/55 98 05/06/17 07:36 100 40 05/06/17 06:00 74 05/06/17 04:04 100 40 05/06/17 04:00 40 05/06/17 04:00 97.9 75 19 102/57 100 05/06/17 04:00 75 05/06/17 02:00 75 05/06/17 01:35 100 40 05/06/17 00:00 97.9 73 18 109/57 05/06/17 00:00 73 05/06/17 00:00 40 05/05/17 22:00 74 05/05/17 21:03 100 40 05/05/17 20:00 72 05/05/17 20:00 40 05/05/17 20:00 97.7 05/05/17 20:00 97.7 74 17 109/55 100 05/05/17 20:00 74 05/05/17 18:00 72 05/05/17 16:00 97.1 73 15 109/56 100 05/05/17 16:00 40 05/05/17 16:00 73 05/05/17 15:36 100 40 05/05/17 14:00 68 Physical Exam CONSTITUTIONAL/GENERAL: This is an adequately nourished male in no acute distress. Orally intubated on mechanical ventilation. TUBES/LINES/DRAINS: ETT, OG, Mediport right chest, PIV's, Singh catheter, SCDs, soft wrist restraints. SKIN: No jaundice, rashes, or lesions. Ecchymoses on upper extremities. No wounds seen anteriorly. Skin temperature appropriate. Not diaphoretic. HEAD: Atraumatic. Normocephalic. EYES: Pupils equal and round and reactive. No scleral icterus. No injection or drainage. ENT: Unable to evaluate hearing secondary to clinical condition, intubated. Nose without bleeding or purulent drainage. Moist oral mucosa. Poor dentition. NECK: Trachea midline. Supple, nontender. CARDIOVASCULAR: Regular rate and rhythm without murmurs, gallops, or rubs. Peripheral pulses symmetric. RESPIRATORY/CHEST: Symmetric, coarse breath sounds bilaterally. Orally intubated on mechanical ventilation. GASTROINTESTINAL: Abdomen mildly distended, round. Bowel sounds present. GENITOURINARY: Without palpable bladder distension. MUSCULOSKELETAL: Extremities without clubbing, cyanosis. Edema to bilateral hands. No mottling or clubbing. NEUROLOGICAL: Sedated. Briefly opening eyes to tactile stimuli, not tracking or following commands. PSYCHIATRIC: Appears calm. . Diagnostic Tests Laboratory Laboratory Tests Test 05/03/17 05/03/17 05/04/17 05/04/17 13:00 19:30 04:50 12:00 Activated Partial 60.4 SEC 40.1 SEC 28.0 SEC 60.9 SEC Thromboplast Time (24.3-30.1) (24.3-30.1) (24.3-30.1) (24.3-30.1) White Blood Count 13.2 TH/MM3 (4.0-11.0) Red Blood Count 2.72 MIL/MM3 (4.50-5.90) Hemoglobin 8.0 GM/DL (13.0-17.0) Hematocrit 23.5 % (39.0-51.0) Mean Corpuscular Volume 86.4 FL (80.0-100.0) Mean Corpuscular Hemoglobin 29.3 PG (27.0-34.0) Mean Corpuscular Hemoglobin 33.9 % Concent (32.0-36.0) Red Cell Distribution Width 17.2 % (11.6-17.2) Platelet Count 270 TH/MM3 (150-450) Mean Platelet Volume 7.2 FL (7.0-11.0) Neutrophils (%) (Auto) 92.9 % (16.0-70.0) Lymphocytes (%) (Auto) 2.0 % (9.0-44.0) Monocytes (%) (Auto) 5.0 % (0.0-8.0) Eosinophils (%) (Auto) 0.0 % (0.0-4.0) Basophils (%) (Auto) 0.1 % (0.0-2.0) Neutrophils # (Auto) 12.2 TH/MM3 (1.8-7.7) Lymphocytes # (Auto) 0.3 TH/MM3 (1.0-4.8) Monocytes # (Auto) 0.7 TH/MM3 (0-0.9) Eosinophils # (Auto) 0.0 TH/MM3 (0-0.4) Basophils # (Auto) 0.0 TH/MM3 (0-0.2) CBC Comment DIFF FINAL Differential Comment Sodium Level 132 MEQ/L (136-145) Potassium Level 4.2 MEQ/L (3.5-5.1) Chloride Level 96 MEQ/L (98-107) Carbon Dioxide Level 22.7 MEQ/L (21.0-32.0) Anion Gap 13 MEQ/L (5-15) Blood Urea Nitrogen 59 MG/DL (7-18) Creatinine 4.87 MG/DL (0.60-1.30) Estimat Glomerular Filtration 15 ML/MIN (>89) Rate Random Glucose 203 MG/DL (74-106) Calcium Level 6.9 MG/DL (8.5-10.1) Protein Corrected Calcium 7.4 MG/DL (8.5-10.1) Phosphorus Level 6.6 MG/DL (2.5-4.9) Lactate Dehydrogenase 554 U/L (87-241) Total Protein 6.1 GM/DL (6.4-8.2) Test 05/04/17 05/05/17 05/05/17 05/05/17 19:20 01:15 04:25 05:29 Activated Partial 122.1 SEC 56.0 SEC Thromboplast Time (24.3-30.1) (24.3-30.1) White Blood Count 6.3 TH/MM3 (4.0-11.0) Red Blood Count 2.68 MIL/MM3 (4.50-5.90) Hemoglobin 8.0 GM/DL (13.0-17.0) Hematocrit 22.8 % (39.0-51.0) Mean Corpuscular Volume 84.8 FL (80.0-100.0) Mean Corpuscular Hemoglobin 29.7 PG (27.0-34.0) Mean Corpuscular Hemoglobin 35.0 % Concent (32.0-36.0) Red Cell Distribution Width 16.6 % (11.6-17.2) Platelet Count 229 TH/MM3 (150-450) Mean Platelet Volume 7.0 FL (7.0-11.0) Sodium Level 132 MEQ/L (136-145) Potassium Level 4.0 MEQ/L (3.5-5.1) Chloride Level 98 MEQ/L (98-107) Carbon Dioxide Level 20.1 MEQ/L (21.0-32.0) Anion Gap 14 MEQ/L (5-15) Blood Urea Nitrogen 66 MG/DL (7-18) Creatinine 5.35 MG/DL (0.60-1.30) Estimat Glomerular Filtration 14 ML/MIN (>89) Rate Random Glucose 122 MG/DL (74-106) Uric Acid 6.6 MG/DL (2.6-7.2) Calcium Level 7.1 MG/DL (8.5-10.1) Protein Corrected Calcium 7.9 MG/DL (8.5-10.1) Phosphorus Level 5.4 MG/DL (2.5-4.9) Magnesium Level 2.3 MG/DL (1.5-2.5) Total Protein 5.5 GM/DL (6.4-8.2) Blood Gas Puncture Site RT RADIAL Blood Gas Patient Temperature 98.6 Blood Gas HCO3 19 mmol/L (22-26) Blood Gas Base Excess -6.5 mmol/L (-2-2) Blood Gas Oxygen Saturation 97 % (90-100) Arterial Blood pH 7.30 (7.380-7.420) Arterial Blood Partial 39 mmHg (38-42) Pressure CO2 Arterial Blood Partial 142 mmHg Pressure O2 (61-120) Arterial Blood Oxygen Content 11.5 Vol % (12.0-20.0) Arterial Blood 1.2 % (0-4) Carboxyhemoglobin Arterial Blood Methemoglobin 1.3 % (0-2) Blood Gas Hemoglobin 8.3 G/DL (12.0-16.0) Oxygen Delivery Device VENTILATOR Blood Gas Ventilator Setting AC/RR14/VT500/PEEP7 Blood Gas Inspired Oxygen 40 % Test 05/05/17 05/05/17 05/05/17 05/05/17 06:50 14:55 19:10 22:00 Activated Partial 78.6 SEC 80.7 SEC 57.4 SEC Thromboplast Time (24.3-30.1) (24.3-30.1) (24.3-30.1) Urine Eosinophils NONE SEEN /HPF (NONE SEEN) Urine Osmolality 273 MOSM/KG (300-1300) Urine Random Sodium 8 MEQ/L Test 05/06/17 05/06/17 04:00 06:05 White Blood Count 6.5 TH/MM3 (4.0-11.0) Red Blood Count 2.87 MIL/MM3 (4.50-5.90) Hemoglobin 8.4 GM/DL (13.0-17.0) Hematocrit 24.2 % (39.0-51.0) Mean Corpuscular Volume 84.6 FL (80.0-100.0) Mean Corpuscular Hemoglobin 29.2 PG (27.0-34.0) Mean Corpuscular Hemoglobin 34.5 % Concent (32.0-36.0) Red Cell Distribution Width 16.7 % (11.6-17.2) Platelet Count 251 TH/MM3 (150-450) Mean Platelet Volume 7.0 FL (7.0-11.0) Activated Partial 52.5 SEC Thromboplast Time (24.3-30.1) Sodium Level 132 MEQ/L (136-145) Potassium Level 4.7 MEQ/L (3.5-5.1) Chloride Level 96 MEQ/L (98-107) Carbon Dioxide Level 21.1 MEQ/L (21.0-32.0) Anion Gap 15 MEQ/L (5-15) Blood Urea Nitrogen 73 MG/DL (7-18) Creatinine 5.84 MG/DL (0.60-1.30) Estimat Glomerular Filtration 13 ML/MIN (>89) Rate Random Glucose 112 MG/DL (74-106) Uric Acid 6.9 MG/DL (2.6-7.2) Calcium Level 7.8 MG/DL (8.5-10.1) Phosphorus Level 4.4 MG/DL (2.5-4.9) Magnesium Level 2.3 MG/DL (1.5-2.5) Lactate Dehydrogenase 458 U/L (87-241) Blood Gas Puncture Site LT RADIAL Blood Gas Patient Temperature 98.6 Blood Gas HCO3 20 mmol/L (22-26) Blood Gas Base Excess -4.8 mmol/L (-2-2) Blood Gas Oxygen Saturation 96 % (90-100) Arterial Blood pH 7.33 (7.380-7.420) Arterial Blood Partial 39 mmHg (38-42) Pressure CO2 Arterial Blood Partial 123 mmHg Pressure O2 (61-120) Arterial Blood Oxygen Content 13.0 Vol % (12.0-20.0) Arterial Blood 1.1 % (0-4) Carboxyhemoglobin Arterial Blood Methemoglobin 1.4 % (0-2) Blood Gas Hemoglobin 9.5 G/DL (12.0-16.0) Oxygen Delivery Device VENTILATOR Blood Gas Ventilator Setting AC/RR14/VT500/PEEP7 Blood Gas Inspired Oxygen 40 % Result Diagram: 05/06/1739905/06/17 0400 Procedures * 05/02/17 -intubation * 04/22/17 -axillary lymph node biopsy * 04/27/17 -bone marrow biopsy * 04/28/17 -MediPort placement . Assessment and Plan Disease Oriented Problem List: (1) Non-Hodgkin lymphoma (2) Acute pancreatitis (3) ALDO (acute kidney injury) Symptom Scale: (1) Shortness of breath 0-10 Scale: Unable to quantify Comment: Bilateral pleural effusions/acute hypoxemic respiratory failure. Orally intubated on mechanical ventilation. (2) Debility 0-10 Scale: Unable to quantify Pertinent Non-Medical Issues Psychosocial: Single, unemployed. Has 8 children. Highest level of education is eighth grade. No service. Spiritual: No adventism affiliations. Legal: Designation of healthcare surrogate completed. Ethical issues impacting care: No ethical issues identified. Patient participating in medical decision-making. . Important Contacts [facility]/mother Nu Seals . Alt [facility]/sister France Garcia . . Prognosis Mr. Werner is a 47-year-old male with no significant medical history, recently diagnosed with with aggressive CD10 positive B-cell non-Hodgkin lymphoma. Clinical course complicated by PE status post TPA, cardiogenic shock, acute hypoxemic respiratory failure requiring intubation and mechanical ventilation and worsening acute kidney injury. Patient at a very high risk for sudden cardiac and additional complications. Prognosis is guarded. . Code Status: Full Code Plan * CODE STATUS: FULL code. * HEALTHCARE DECISION-MAKING: Patient unable to participate in medical decision- making secondary to clinical condition, orally intubated on mechanical ventilation -Sedated. Designation of healthcare surrogate completed, patient designated his mother Oxana Seals as HCS and alt [facility] sister France Garcia. * GOALS OF CARE: pt's mother acting as HCS, electing to continue aggressive management to include full code. Plan for renal replacement therapy today and continuation of chemotherapy. Family receptive to palliative care f/u for medical updates and emotional support. * SYMPTOMS: = Shortness of breath, secondary to bilateral pleural effusions/ acute hypoxemic respiratory failure. Currently intubated on mechanical ventilation. Pulmonology following. Plan for CPAP trials today as tolerated = Debility, secondary to burden of disease, acute illness, prolonged hospitalization. * Case discussed with bedside [facility]. * Spiritual services following for family support. * Palliative care contact information has been provided to patient and family. * Palliative care will continue to follow-up for further clarifications of goals of care, provide emotional support as patient's clinical course continues to evolve. . Time Spent Total Floor Time (mins): 24 (Total time to include review medical records, physical exam, telephone conversation with patient's mother and case review with bedside [facility]. ) >50% Counseling/Coord of Care: Yes Attestation To help prompt me to consider important information that might be impacting today's encounter and assessment, information from prior notes written by myself or my colleagues may have been "brought forward" into today's note. My signature on this note, however, is an attestation that I personally performed the exam, history, and/or decision-making noted today, and, unless otherwise indicated, the interactions with patient, family, and staff as well as the review of records all occurred today. I also attest that the listed assessment and stated plan reflect my best clinical judgment today based on the combination of historical information, prior notes, and today's exam/ interactions. When time spent is documented, it refers only to time spent today by the signer, or if indicated, combined time spent today by collaborating physician/nurse practitioner. Demetrice Brody May 06, 2017 12:44
--- NOTE | 2017-05-06 12:50 | HHI.CCPN ---
Subjective Remarks/Hospital Course Hospital Course: This is a 47yM who was originally admitted for acute pancreatitis and during this hospital admission found to have an acute aggressive non-hodgkin's lymphoma. he has had progressive shortness of breath secondary to bilateral pleural effusions and adenopathy. He rapid responsed today for worsening hypoxemia on a NRB and in severe respiratory distress. When I evaluated the patient on arrival to the [facility], he is in severe respiratory distress, unable to speak, RR > 40, spo2 92% on NRB, using accessory muscles. CXR without over fluid overload. additional information is unobtainable secondary to the clinical condition of the patient. Subjective: 05/03: TPA given overnight. started on heparin drip after. this morning, oligoaneuric with Cr rise to 3.3 this AM. also more hypotensive, although fio2 significantly improved to 45%. bilateral pleural effusions persist. echo yesterday with biventricular dysfunction. hgb stable. 05/04:Flolan decreased to 20 from 30 ngs. Slight improvement in chest x-ray. Epinephrine infusion currently being weaned . Nephrology consulted secondary to continue rising creatinine. 05/05: Hemodynamically stable, epinephrine weaned off yesterday. Nephrology following Dr. Haley with plans for possible dialysis tomorrow. Discussed with hematology oncology plan for reinitiation of chemotherapy with initiation of dialysis. Respiratory system with Flolan decrease stable. Plan to decrease Flolan to 10 ng, with potential for cessation in a.m.. 05/06: No acute issues overnight. Attempts at CPAP trials unsuccessful yesterday. Vascular catheter placement this a.m.. Plan for dialysis today. ABGs obtained, Flolan discontinued today. Possible plan for reinitiation of chemotherapy. Objective Vital Signs Date Time Temp Pulse Resp B/P Pulse Ox O2 Delivery O2 Flow Rate FiO2 05/06/17 12:40 98 35 05/06/17 10:00 75 05/06/17 08:00 97.7 25 99/55 05/03/17 19:00 Mechanical Ventilator 05/02/17 08:40 15.00 Intake and Output 05/05/17 05/05/17 05/06/17 08:00 16:00 00:00 Intake Total 1125 ml 975 ml 862 ml Output Total 75 ml 100 ml 50 ml Balance 1050 ml 875 ml 812 ml Result Diagram: 05/06/17 0400 05/06/17 0400 Other Results Laboratory Tests Test 05/06/17 06:05 Blood Gas Puncture Site LT RADIAL Blood Gas Patient Temperature 98.6 Blood Gas HCO3 20 mmol/L (22-26) Blood Gas Base Excess -4.8 mmol/L (-2-2) Blood Gas Oxygen Saturation 96 % (90-100) Arterial Blood pH 7.33 (7.380-7.420) Arterial Blood Partial 39 mmHg (38-42) Pressure CO2 Arterial Blood Partial 123 mmHg Pressure O2 (61-120) Arterial Blood Oxygen Content 13.0 Vol % (12.0-20.0) Arterial Blood 1.1 % (0-4) Carboxyhemoglobin Arterial Blood Methemoglobin 1.4 % (0-2) Blood Gas Hemoglobin 9.5 G/DL (12.0-16.0) Oxygen Delivery Device VENTILATOR Blood Gas Ventilator Setting AC/RR14/VT500/PEEP7 Blood Gas Inspired Oxygen 40 % Imaging Last Impressions Chest X-Ray 05/03/17 0600 Signed Impressions: Service Date/Time: Wednesday, May 03, 2017 03:46 - CONCLUSION: Improving infiltrates. No Tacos Garcia MD Head CT 05/03/17 0000 Signed Impressions: Service Date/Time: Wednesday, May 03, 2017 17:22 - CONCLUSION: No acute intracranial disease. No hemorrhage seen. Tray Patel MD CT Angiography 05/02/17 0000 Signed Impressions: Service Date/Time: Tuesday, May 02, 2017 11:10 - CONCLUSION: 1. There is pulmonary embolus in the right pulmonary artery, right upper lobe and lower lobe branches. 2. Resorption of previously seen gas in the left axilla with fluid collection at this site with postprocedural change and possibly postprocedural hemorrhage not significantly changed in size. 3. Interval development of right lung airspace process may represent postobstructive pneumonia and there is mucus within the trachea not present yesterday. 4. Right pleural effusion is smaller and left pleural effusion is larger. 5. No change in bulky adenopathy. Leonor Chavez MD Upper Extremity Ultrasound 04/30/17 0000 Signed Impressions: Service Date/Time: April 12:25 - CONCLUSION: There some superficial thrombosis of a vein in the forearm. The deep venous system is patent. Large fluid collection left axilla. Significant soft tissue edema throughout the upper arm. Rinku Hillman MD Thoracentesis Ultrasound 04/30/17 0000 Signed Impressions: Service Date/Time: April 12:14 - CONCLUSION: Uncomplicated ultrasound guided thoracentesis. Tray Patel MD Port Line Insertion 04/27/17 0000 Signed Impressions: Service Date/Time: Thursday, April 27, 2017 14:56 - CONCLUSION: 1. Bulky bilateral lower cervical lymphadenopathy. 2. Uncomplicated ultrasound and fluoroscopic guided implanted central venous port catheter placement as described in detail above. An 8 [employer] port was placed. Liang Peralta MD Bone Biopsy CT 04/27/17 0000 Signed Impressions: Service Date/Time: Thursday, April 27, 2017 16:22 - CONCLUSION: 1. Uncomplicated CT guided bone marrow aspirate. 2. Uncomplicated CT guided bone marrow biopsy. Tray Patel MD Chest CT 04/25/17 0000 Signed Impressions: Service Date/Time: Wednesday, April 26, 2017 19:00 - CONCLUSION: The right pleural effusion is slightly larger on the left side has not changed. Extensive bulky adenopathy as before and malignancies such as lymphoma is suspected. Leonor Chavez MD Gall Bladder Ultrasound 04/22/17 0000 Signed Impressions: Service Date/Time: Saturday, April 22, 2017 07:35 - CONCLUSION: Small liver with focal abdomen only incompletely evaluated. Large right pleural effusion. effusion. Kirk Briceño MD FACR Abdomen CT 04/20/17 0000 Signed Impressions: Service Date/Time: Thursday, April 20, 2017 19:40 - CONCLUSION: Limited exam because of lack of intravenous contrast. Lymphoma is suspected. Pathological diagnosis could be obtained with ultrasound biopsy of the cervical, axillary or inguinal adenopathy. Kirk Briceño MD FACR Last Impressions Chest X-Ray 05/02/17 0000 Signed Impressions: Service Date/Time: Tuesday, May 02, 2017 08:11 - CONCLUSION: There is mild improvement in aeration of the right lower lung, otherwise not significantly changed. Leonor Chavez MD Upper Extremity Ultrasound 04/30/17 0000 Signed Impressions: Service Date/Time: April 12:25 - CONCLUSION: There some superficial thrombosis of a vein in the forearm. The deep venous system is patent. Large fluid collection left axilla. Significant soft tissue edema throughout the upper arm. Rinku Hillman MD Thoracentesis Ultrasound 04/30/17 0000 Signed Impressions: Service Date/Time: April 12:14 - CONCLUSION: Uncomplicated ultrasound guided thoracentesis. Tray Patel MD Port Line Insertion 04/27/17 0000 Signed Impressions: Service Date/Time: Thursday, April 27, 2017 14:56 - CONCLUSION: 1. Bulky bilateral lower cervical lymphadenopathy. 2. Uncomplicated ultrasound and fluoroscopic guided implanted central venous port catheter placement as described in detail above. An 8 [employer] port was placed. Liang Peralta MD Bone Biopsy CT 04/27/17 0000 Signed Impressions: Service Date/Time: Thursday, April 27, 2017 16:22 - CONCLUSION: 1. Uncomplicated CT guided bone marrow aspirate. 2. Uncomplicated CT guided bone marrow biopsy. Tray Patel MD Chest CT 04/25/17 0000 Signed Impressions: Service Date/Time: Wednesday, April 26, 2017 19:00 - CONCLUSION: The right pleural effusion is slightly larger on the left side has not changed. Extensive bulky adenopathy as before and malignancies such as lymphoma is suspected. Leonor Chavez MD Gall Bladder Ultrasound 04/22/17 0000 Signed Impressions: Service Date/Time: Saturday, April 22, 2017 07:35 - CONCLUSION: Small liver with focal abdomen only incompletely evaluated. Large right pleural effusion. effusion. Kirk Briceño MD FACR Abdomen CT 04/20/17 0000 Signed Impressions: Service Date/Time: Thursday, April 20, 2017 19:40 - CONCLUSION: Limited exam because of lack of intravenous contrast. Lymphoma is suspected. Pathological diagnosis could be obtained with ultrasound biopsy of the cervical, axillary or inguinal adenopathy. Krik Briceño MD FACR Objective Remarks General: Well-nourished well-developed middle-aged male, lying in bed, intubated, sedated heent: perrl. mucous membranes moist neck: no jvd. trachea midline orotracheally intubated chest: Right chest Port-A-Cath in situ decreased BS at the bases bilaterally. equal chest rise. PRVC, 45% fio2. Left IJ vas catheter cv: tachycardic rate, regular rhythm. No murmurs rubs or gallops abd: soft, nontender, nondistended. no guarding. extr: trace peripheral edema. distal pulses 1+ neuro: RASS -2. Noted spontaneous movement of extremities 4, intubated and sedated. Procedures 04/[address] excision biopsy 04/27- port placement 05/02-TPA 05/06-left IJ Vas-Cath placement A/P Assessment and Plan Assessment: 47yM with aggressive large B cell lymphoma, acute pancreatitis, now with submassive PE, acute cardiogenic shock, acute hypoxic respiratory failure, now oligoaneuric acute kidney injury secondary to shock. Currently inotropic therapy with epinephrine and inhaled flolan , decreased for RV support. Remains very critically ill. Will be unable to add invasive monitoring until his TPA window x 24h is complete. Also will need drainage of his pleural effusions, although will hold off for now given cardiogenic shock. Plan by Systems: Neuro: -- Wean Propofol, continue fentanyl infusions for goal RASS -2 -- repeat head on 05/03 CT 24h after TPA-no abnormality --Daily sedation vacation Respiratory: Acute Hypoxic Respiratory Failure Acute Submassive Pulmonary Embolism Bilateral pleural effusions, large, acute -- vent bundle, hob at 30 degrees, nebs -- wean fio2 for goal spo2 > 90% -- Discontinued inhaled flolan 05/06 -- Follow-up chest x-ray and ABGs --Continue CPAP trials Cardiovascular: Acute Submassive Pulmonary Embolism Right Heart Dysfunction Global severe left ventricular systolic dysfunction Cardiogenic Shock -- high risk for sudden cardiac s/p acute PE -- Epinephrine discontinued 05/04 -- Maintain a goal MAP > 65 mmHg -- 2d echo 05/02: EF 30-35%, RV dysfunction with dilation --Repeat ECHO limited study on 05/09 Renal: Acute Kidney Injury -- likely secondary to cardiogenic shock - Nephrology following, Dr. Haley --Left IJ vas catheter placement-initiation of hemodialysis today -- continue shepard with strict I/Os. FEN/GI: Hyperphosphatemia Hyperkalemia Hypocalcemia Acute protein calorie malnutrition- severe -- per the echo from yesterday, intravascular volume status is appropriate, but very likely will get volume overloaded today given severe oliguria. will minimize excess iv fluids -- tube feeds --GI following -- PhosLo -- daily electrolytes, replete per ICU protocol Heme/ID Acute Large Cell B-cell lymphoma Pulmonary Embolism -- hematology/oncology following Dr. Connelly-tentative plan to resume CHOP therapy with initiation of hemodialysis -- chemo on hold secondary to his acute life-threatening illnesses. -- continue heparin drip, goal PTT 60 - 80. Will eventually transition to Coumadin Endocrine: Hyperglycemia of Critical Illness -- SSI, q6h, med scale Msk: --PT evaluation and treat --Multi-Podus boots prevention of foot drop --PT daily functional maintenance Prophylaxis: DVT: SCDs, heparin drip GI: protonix Lines: -- port right chest --Left IJ vas catheter, peripheral IVs 2 -- shepard Dispo: This patient remains critically ill with one or more organ systems which are or may become a threat to life. I have spent in excess of 30 minutes discontinuously in the care and management of this patient. This time is exclusive of procedures, and includes, but is not limited to, evaluation of the patient, review of the medical record, discussions with family, consultants, nursing staff, or respiratory therapy, and documentation in the medical record. Physician Lyudmila Aldrich MD May 06, 2017 12:50
--- NOTE | 2017-05-06 12:51 | PD.PROCEDR ---
Central Line Procedure REASON FOR PROCEDURE Central venous access PROCEDURE PERFORMED Central line placement: Left internal jugular Vas-Cath CONSENT Informed consent for procedure was obtained mother. The risks and benefits of the procedure were discussed to include but limited to bleeding, clot formation , infection, and even . ANESTHESIA Local injection of 1% Lidocaine DESCRIPTION OF THE PROCEDURE The patient was placed in supine, mild Trendelenburg position. The area was exposed and cleansed with ChloraPrep, times two. Large sterile drape was used to cover the patient, with the site exposed, under sterile conditions including cap, face mask, sterile gown, and sterile gloves. On single attempt, the introducer needle was inserted with negative pressure in syringe and venous flash was obtained. The guide wire was then advanced without any restriction and the needle was removed. The dilator was used without any complications. Using Seldinger technique the vas catheter was advanced over the guide wire to a depth of 20 centimeters. The guide wire was removed. All ports were aspirated with dark venous blood return and flushed easily with sterile saline. All ports were capped. Antibiotic disc was placed around central line at puncture site. The central line was secured to the skin with two interrupted 2.0 silk sutures. The area was bandaged with sterile see-through central line bandage. RADIOLOGICAL DATA Ultrasound guidance was used to locate left IJ. Doppler/color flow was used to confirm venous flow. COMPLICATIONS: No apparent complications. Chest x-ray pending ESTIMATED BLOOD LOSS: Less than 1 cc. Lyudmila Russell MD May 06, 2017 12:51
--- NOTE | 2017-05-06 13:01 | RADRPT ---
EXAM DATE/TIME: 05/06/2017 12:00 [place] COMPARISON: CHEST SINGLE AP, May 05, 2017, 3:21. INDICATIONS : Post Vascath placement. MEDICAL HISTORY : Pancreatitis. Lymphoma. SURGICAL HISTORY : None. ENCOUNTER: Subsequent ACUITY: 2 weeks PAIN SCORE: Non-responsive. LOCATION: Bilateral chest FINDINGS: Support apparatus in good position including Vas-Cath. There is no pneumothorax. Mediastinal adenop athy persists. Small bilateral pleural effusions are evident. CONCLUSION: 1. Vas-Cath in good position without pneumothorax. Kirk Briceño MD FACR on May 06, 2017 at 12:58 Board Certified Radiologist. This report was verified electronically.
--- NOTE | 2017-05-06 15:04 | PD.ONC.PN ---
Subjective Subjective Remarks Afebrile overnight Pt to get dialysis later this afternoon Remains sedated and mechanically ventilated Objective Data Date Time Temp Pulse Resp B/P Pulse Ox O2 Delivery O2 Flow Rate FiO2 05/06/17 12:40 98 35 05/06/17 12:00 75 05/06/17 12:00 97.8 75 20 107/58 98 05/06/17 12:00 40 05/06/17 10:00 75 05/06/17 08:00 40 05/06/17 08:00 75 05/06/17 08:00 97.7 75 25 99/55 98 05/06/17 07:36 100 40 05/06/17 06:00 74 05/06/17 04:04 100 40 05/06/17 04:00 40 05/06/17 04:00 97.9 75 19 102/57 100 05/06/17 04:00 75 05/06/17 02:00 75 05/06/17 01:35 100 40 05/06/17 00:00 97.9 73 18 109/57 05/06/17 00:00 73 05/06/17 00:00 40 05/05/17 22:00 74 05/05/17 21:03 100 40 05/05/17 20:00 72 05/05/17 20:00 40 05/05/17 20:00 97.7 05/05/17 20:00 97.7 74 17 109/55 100 05/05/17 20:00 74 05/05/17 18:00 72 05/05/17 16:00 97.1 73 15 109/56 100 05/05/17 16:00 40 05/05/17 16:00 73 05/05/17 15:36 100 40 Result Diagram: 05/06/17 0400 05/06/17 0400 Laboratory Results Laboratory Tests Test 05/05/17 05/05/17 05/06/17 05/06/17 19:10 22:00 04:00 06:05 Urine Eosinophils NONE SEEN /HPF Urine Osmolality 273 MOSM/KG Urine Random Sodium 8 MEQ/L Activated Partial 57.4 SEC 52.5 SEC Thromboplast Time White Blood Count 6.5 TH/MM3 Red Blood Count 2.87 MIL/MM3 Hemoglobin 8.4 GM/DL Hematocrit 24.2 % Mean Corpuscular Volume 84.6 FL Mean Corpuscular Hemoglobin 29.2 PG Mean Corpuscular Hemoglobin 34.5 % Concent Red Cell Distribution Width 16.7 % Platelet Count 251 TH/MM3 Mean Platelet Volume 7.0 FL Sodium Level 132 MEQ/L Potassium Level 4.7 MEQ/L Chloride Level 96 MEQ/L Carbon Dioxide Level 21.1 MEQ/L Anion Gap 15 MEQ/L Blood Urea Nitrogen 73 MG/DL Creatinine 5.84 MG/DL Estimat Glomerular Filtration 13 ML/MIN Rate Random Glucose 112 MG/DL Uric Acid 6.9 MG/DL Calcium Level 7.8 MG/DL Phosphorus Level 4.4 MG/DL Magnesium Level 2.3 MG/DL Lactate Dehydrogenase 458 U/L Blood Gas Puncture Site LT RADIAL Blood Gas Patient Temperature 98.6 Blood Gas HCO3 20 mmol/L Blood Gas Base Excess -4.8 mmol/L Blood Gas Oxygen Saturation 96 % Arterial Blood pH 7.33 Arterial Blood Partial 39 mmHg Pressure CO2 Arterial Blood Partial 123 mmHg Pressure O2 Arterial Blood Oxygen Content 13.0 Vol % Arterial Blood 1.1 % Carboxyhemoglobin Arterial Blood Methemoglobin 1.4 % Blood Gas Hemoglobin 9.5 G/DL Oxygen Delivery Device VENTILATOR Blood Gas Ventilator Setting AC/RR14/VT500/PEEP7 Blood Gas Inspired Oxygen 40 % Imaging Studies Last 24 hours Impressions Chest X-Ray 05/06/17 0000 Signed Impressions: Service Date/Time: Saturday, May 06, 2017 12:00 - CONCLUSION: 1. Vas-Cath in good position without pneumothorax. Kirk Briceño MD FACR Administered Medications Medications (Trade) Dose Ordered Sig/Shyla Route PRN Reason Start Time Stop Time Status Last Admin Dose Admin Sodium Chloride (NS Flush) 2 ml UNSCH PRN IV FLUSH FLUSH AFTER USING IV ACCESS 04/18/17 17:30 04/21/17 22:27 Senna/Docusate Sodium (Porsha-Colace) 1 tab BID PO 04/18/17 21:00 05/06/17 08:17 Heparin Sodium (Porcine) (Heparin Inj) 5,000 units Q8HR SQ 04/19/17 14:00 Hold 05/02/17 12:46 Hydralazine HCl (Apresoline Inj) 10 mg Q6HR PRN IV PUSH SBP>160, DBP>90 04/21/17 17:00 04/27/17 10:15 Nifedipine (Procardia Xl) 90 mg DAILY PO 04/28/17 09:00 05/06/17 08:16 Clonidine (Catapres) 0.1 mg Q6H PRN PO SBP>160, DBP>90 04/27/17 15:00 04/29/17 08:07 Ondansetron HCl (Zofran Inj) 4 mg Q6HR PRN IV PUSH NAUSEA OR VOMITING 04/30/17 11:30 04/30/17 22:17 Promethazine HCl (Phenergan Inj) 25 mg Q6H PRN IM NAUSEA OR VOMITING 04/30/17 11:30 05/01/17 13:27 Acetaminophen/ Hydrocodone Bitart ([place] 5-325 Mg) 1 tab Q6H PRN PO PAIN SCALE 1 TO 10 04/30/17 11:30 05/01/17 05:15 Metoclopramide HCl (Reglan Inj) 10 mg Q8HR IV PUSH 05/01/17 15:30 05/06/17 13:35 Pantoprazole Sodium (Protonix) 40 mg DAILY PO 05/01/17 16:00 05/06/17 08:17 Insulin Human Regular (NovoLIN R SUPPLEMENTAL SCALE) 1 Q6HR SQ 05/02/17 12:00 05/04/17 18:00 Chlorhexidine Gluconate 15 ml 15 ml BID@08,20 MT 05/02/17 20:00 05/06/17 08:16 Fentanyl Citrate 250 ml @ 0 mls/hr TITRATE IV 05/02/17 10:00 05/05/17 21:43 Propofol (Diprivan 1000 Mg/100ml Inj) 100 ml @ 0 mls/hr TITRATE IV 05/02/17 10:00 05/06/17 13:35 Miscellaneous Information Patient in critical care unit? Ass... [id number] .XX 05/02/17 17:15 05/02/17 17:30 Chlorhexidine Gluconate 3 pack 3 pack DAILY@04 TOPICAL 05/03/17 04:00 05/07/17 04:01 05/06/17 04:00 Heparin Sodium/ Dextrose 250 ml @ 0 mls/hr TITRATE IV 05/03/17 02:00 05/06/17 06:51 Epinephrine HCl/ Dextrose (Adrenalin (1:1000) Inj/D5W Inj) 250 ml @ 30 mls/hr TITRATE IV 05/03/17 10:15 05/04/17 09:43 Calcium Acetate 2668 mg 2,668 mg TID PO 05/03/17 09:00 05/06/17 13:35 Cefepime HCl/ Sodium Chloride (Maxipime Inj/NS Inj) 100 ml @ 200 mls/hr Q24H IV 05/06/17 03:00 05/08/17 23:00 05/06/17 03:05 Allopurinol (Zyloprim) 200 mg DAILY PO 05/06/17 09:00 05/06/17 08:16 Artificial Tears (Tears Naturale Opth Soln) 1 drop Q8H EACH EYE 05/05/17 18:00 05/06/17 08:17 Objective Remarks GENERAL: Critically ill appearing male, supine in bed on mechanical ventilation. SKIN: Warm and dry. port, right chest wall, no bleeding. HEAD: Normocephalic. EYES: No injection or drainage. NECK: Supple, trachea midline. CARDIOVASCULAR: +S1/S2. RESPIRATORY: Rhonchi throughout. Mechanically ventilated. GASTROINTESTINAL: Abdomen distended, TF infusing. EXTREMITIES: BUE with edema. BLE with SCD's in place. NEUROLOGICAL: Sedated and on the vent. Assessment/Plan Problem List: (1) Pulmonary emboli Status: Acute Plan: --CTA showed large PE --s/p tpa therapy on 05.02. now on heparin gtt. --echo showed right heart strain. (2) Non-Hodgkin lymphoma Status: Acute Plan: --remains critically ill. cannot start EPOCH s/p Rituxan on 05.01 --follicular with features of transformation to B-cell lymphoma --Triple hit + --port placed 04/28 --bone marrow biopsy 04/28 --on allopurinol 200mg PO daily --monitor LDH, uric acid --Hepatitis panel negative (3) Pleural effusion Status: Acute Plan: --s/p right sided thoracentesis on 04/30 --will likely need pigtail catheter placement at some point, per program development specialist. (4) Cardiogenic shock Status: Acute Plan: --program development specialist managing (5) ALDO (acute kidney injury) Status: Acute Plan: --likely d/t cardiogenic shock -- Pt starting dialysis today. Assessment 47y/o male admitted with pancreatitis, found to have NHL. Plan 1. Hold chemotherapy until clinically improved 2. Dialysis to be initiated today 3. No evidence of tumor lysis syndrome. 4. Continue heparin gtt 5. Monitor CBC. Discussed with [employer]TER Attending Statement The exam, history, and the medical decision-making described in the above note were completed with the assistance of the mid-level provider. I reviewed and agree with the findings presented. I attest that I had a [id number] encounter with the patient on the same day, and personally performed and documented my assessment and findings in the medical record. Sedated on ventilator. Renal function is worse, await dialysis. Not stable to start chemotherapy at this time. Continue supportive care. Prognosis guarded. Problem Qualifiers (1) Non-Hodgkin lymphoma: Tia Montenegro May 06, 2017 15:04 Ruslan Connelly MD May 06, 2017 16:18
--- NOTE | 2017-05-06 18:52 | HHI.NPPN ---
Subjective History of Present Illness 47-year-old male with no known past medical history who came to the hospital with complaint of nausea, vomiting and abdominal pain on April 18. I was called to see the patient because of elevated BUN and creatinine. The patient had a creatinine of 1.3 on presentation which improved to 0.7 and 0.8, then started increasing for last few days. Additional Remarks Patient remain intubated and sedated, seen after HD. Objective Data Data 05/05/17 05/06/17 19:00 07:00 Intake Total 975 ml 1817 ml Output Total 100 ml 150 ml Balance 875 ml 1667 ml IV Total 308 ml 750 ml Tube Feeding 467 ml 1067 ml Other 200 ml Output Urine Total 100 ml 150 ml # Bowel Movements 0 Vital Signs Date Time Temp Pulse Resp B/P Pulse Ox O2 Delivery O2 Flow Rate FiO2 05/06/17 16:00 35 05/06/17 16:00 97.5 75 19 107/56 98 05/06/17 16:00 75 05/06/17 14:00 75 05/06/17 12:40 98 35 05/06/17 12:00 75 05/06/17 12:00 97.8 75 20 107/58 98 05/06/17 12:00 40 05/06/17 10:00 75 05/06/17 08:00 40 05/06/17 08:00 75 05/06/17 08:00 97.7 75 25 99/55 98 05/06/17 07:36 100 40 05/06/17 06:00 74 05/06/17 04:04 100 40 05/06/17 04:00 40 05/06/17 04:00 97.9 75 19 102/57 100 05/06/17 04:00 75 05/06/17 02:00 75 05/06/17 01:35 100 40 05/06/17 00:00 97.9 73 18 109/57 05/06/17 00:00 73 05/06/17 00:00 40 05/05/17 22:00 74 05/05/17 21:03 100 40 05/05/17 20:00 72 05/05/17 20:00 40 05/05/17 20:00 97.7 05/05/17 20:00 97.7 74 17 109/55 100 05/05/17 20:00 74 -: 05/06/17 0400 05/06/17 0400 Physical Exam General Appearance Remarks Intubated and sedated. Eyes Eye Exam: Pupils Equal Throat Throat Exam: Oral Mucosa [place] & Moist Pulmonary Resp Exam: Crackles, Rhonchi, Decreased Bases, Diminished Breath Sounds, Poor Inspiratory Effort Cardiology CV Exam: Regular, Normal Sinus Rhythm Gastrointestinal/Abdomen GI Exam: Soft, Non-Tender, Bowel Sounds Present, Distended Extremeties Extremities Exam: Trace Edema Neurologic Neuro Exam: Sedated Assessment/Plan Assessment Summary: ALDO/Acute Renal Failure Problem List: (1) Non-Hodgkin lymphoma (2) Adenopathy (3) Pleural effusion (4) Shortness of breath (5) Pulmonary emboli (6) Acute pancreatitis (7) ALDO (acute kidney injury) Plan Patient has minimal urine out put. Urine Na. was low, and Eosinophils negative. Creatinine continue to increase. Started on HD after the Vascath. 2 Liters removed, tolerated well, BP is stable. Continue HD as needed. Avoid Nephrotoxins. Follow BUN and Creatinine and urine out put. Problem Qualifiers (1) Non-Hodgkin lymphoma: (2) Acute pancreatitis: Qualified Code: K85.20 - Alcohol-induced acute pancreatitis, unspecified complication status Leonid Haley MD May 06, 2017 18:52
[2017-05-06] MEDS: fentaNYL DRIP 250 ML IV SCH (22:21)
[2017-05-07] VITALS (18 sets, daily range): BP systolic 98–147; BP diastolic 54–76; PULSE 77–90; RESP 17–22; TEMP 98.2–99.8; O2SAT 94–99
[2017-05-07] MEDS: PROPOFOL 1000 MG/100 ML INJ 100 ML IV SCH (00:21)
[2017-05-07] MEDS: CHLORHEXIDINE GLUCONATE 2 % 1 PACK (2 CLOTHS)(taper/protocol) TOPICAL SCH (03:45)
[2017-05-07] MEDS: CEFEPIME INJ 2,000 MG in SODIUM CHLORIDE 0.9% INJ 100 ML IV SCH (03:45)
[2017-05-07] MEDS: ARTIFICIAL TEARS OPTH SOLN 15 ML BTL EACH EYE SCH ×2 (03:45→10:06)
[2017-05-07 05:14] LABS: HEMATOCRIT 23.7 % (39.0-51.0); MEAN CELL VOLUME 83.6 FL (80.0-100.0); MEAN CORPUSCULAR HGB CONC 35.9 % (32.0-36.0); PLATELET COUNT 284 TH/MM3 (150-450); RED BLOOD COUNT 2.83 MIL/MM3 (4.50-5.90); RED CELL DISTRIBUTION WIDTH 16.3 % (11.6-17.2); REVIEW FLAG FINAL; WHITE BLOOD COUNT 10.7 TH/MM3 (4.0-11.0)
[2017-05-07 05:22] LABS: APTT (PATIENT) 45.7 SEC (24.3-30.1)
[2017-05-07 05:49] LABS: BICARBONATE 22.6 MEQ/L (21.0-32.0); MAGNESIUM 2.2 MG/DL (1.5-2.5); POTASSIUM 4.8 MEQ/L (3.5-5.1)
[2017-05-07 05:50] LABS: URIC ACID 5.8 MG/DL (2.6-7.2)
[2017-05-07] MEDS: INSULIN NovoLIN REGULAR SUPPLEMENTAL SCALE SQ SCH ×4 (06:00→18:00)
[2017-05-07] MEDS: METOCLOPRAMIDE HCL 10 MG/2 ML VIAL IV PUSH SCH ×3 (06:19→22:00)
[2017-05-07] MEDS: PANTOPRAZOLE SOD 40 MG DELAYED RELEASE TAB PO SCH (09:00)
[2017-05-07] MEDS: NIFEdipine 90 MG SUSTAINED RELEASE TAB PO SCH (09:00)
[2017-05-07] MEDS: DOCUSATE SODIUM 50 MG/SENNA 8.6 MG TAB PO SCH ×2 (09:00→21:00)
[2017-05-07] MEDS: CHLORHEXIDINE 0.12% (ORAL KIT) 15 ML CUP MT SCH ×2 (10:04→20:00)
[2017-05-07] MEDS: ALLOPURINOL 100 MG TAB PO SCH (10:05)
[2017-05-07] MEDS: CALCIUM ACETATE 667 MG CAP PO SCH ×3 (10:05→18:00)
[2017-05-07] MEDS: ONDANSETRON HCL 4 MG/2 ML VIAL IV PUSH PRN (10:06)
[2017-05-07] MEDS: HEPARIN-D5W 25,000 U/250 ML 250 ML IV SCH (10:07)
--- NOTE | 2017-05-07 11:36 | PD.ONC.PN ---
Subjective Subjective Remarks Afebrile overnight. Patient to receive dialysis again today. remains sedated. intubated. TF stopped as patient had large residuals and an episode of vomiting yesterday. Objective Data Date Time Temp Pulse Resp B/P Pulse Ox O2 Delivery O2 Flow Rate FiO2 05/07/17 08:18 95 35 05/07/17 08:18 94 Ventilator 35 05/07/17 06:00 84 05/07/17 04:00 35 05/07/17 04:00 80 05/07/17 04:00 99.8 80 19 139/71 99 05/07/17 03:20 99 35 05/07/17 02:00 77 05/07/17 00:00 77 05/07/17 00:00 99.4 77 20 98/54 97 05/07/17 00:00 35 05/06/17 23:18 97 35 05/06/17 22:00 81 05/06/17 20:00 35 05/06/17 20:00 79 05/06/17 20:00 99.0 79 17 91/53 97 05/06/17 18:00 84 05/06/17 16:00 35 05/06/17 16:00 97.5 75 19 107/56 98 05/06/17 16:00 75 05/06/17 14:00 75 05/06/17 12:40 98 35 05/06/17 12:00 75 05/06/17 12:00 97.8 75 20 107/58 98 05/06/17 12:00 40 Result Diagram: 05/07/17 0424 05/07/17 0424 Laboratory Results Laboratory Tests Test 05/07/17 04:24 White Blood Count 10.7 TH/MM3 Red Blood Count 2.83 MIL/MM3 Hemoglobin 8.5 GM/DL Hematocrit 23.7 % Mean Corpuscular Volume 83.6 FL Mean Corpuscular Hemoglobin 30.0 PG Mean Corpuscular Hemoglobin 35.9 % Concent Red Cell Distribution Width 16.3 % Platelet Count 284 TH/MM3 Mean Platelet Volume 7.7 FL Activated Partial 45.7 SEC Thromboplast Time Sodium Level 130 MEQ/L Potassium Level 4.8 MEQ/L Chloride Level 94 MEQ/L Carbon Dioxide Level 22.6 MEQ/L Anion Gap 13 MEQ/L Blood Urea Nitrogen 64 MG/DL Creatinine 5.40 MG/DL Estimat Glomerular Filtration 14 ML/MIN Rate Random Glucose 121 MG/DL Uric Acid 5.8 MG/DL Calcium Level 8.4 MG/DL Phosphorus Level 4.2 MG/DL Magnesium Level 2.2 MG/DL Lactate Dehydrogenase 466 U/L Administered Medications Medications (Trade) Dose Ordered Sig/Shyla Route PRN Reason Start Time Stop Time Status Last Admin Dose Admin Sodium Chloride (NS Flush) 2 ml UNSCH PRN IV FLUSH FLUSH AFTER USING IV ACCESS 04/18/17 17:30 04/21/17 22:27 Senna/Docusate Sodium (Porsha-Colace) 1 tab BID PO 04/18/17 21:00 05/06/17 22:22 Heparin Sodium (Porcine) (Heparin Inj) 5,000 units Q8HR SQ 04/19/17 14:00 Hold 05/02/17 12:46 Hydralazine HCl (Apresoline Inj) 10 mg Q6HR PRN IV PUSH SBP>160, DBP>90 04/21/17 17:00 04/27/17 10:15 Nifedipine (Procardia Xl) 90 mg DAILY PO 04/28/17 09:00 05/06/17 08:16 Clonidine (Catapres) 0.1 mg Q6H PRN PO SBP>160, DBP>90 04/27/17 15:00 04/29/17 08:07 Ondansetron HCl (Zofran Inj) 4 mg Q6HR PRN IV PUSH NAUSEA OR VOMITING 04/30/17 11:30 05/07/17 10:06 Promethazine HCl (Phenergan Inj) 25 mg Q6H PRN IM NAUSEA OR VOMITING 04/30/17 11:30 05/01/17 13:27 Acetaminophen/ Hydrocodone Bitart ([place] 5-325 Mg) 1 tab Q6H PRN PO PAIN SCALE 1 TO 10 04/30/17 11:30 05/01/17 05:15 Metoclopramide HCl (Reglan Inj) 10 mg Q8HR IV PUSH 05/01/17 15:30 05/07/17 06:19 Pantoprazole Sodium (Protonix) 40 mg DAILY PO 05/01/17 16:00 05/06/17 08:17 Insulin Human Regular (NovoLIN R SUPPLEMENTAL SCALE) 1 Q6HR SQ 05/02/17 12:00 05/04/17 18:00 Chlorhexidine Gluconate 15 ml 15 ml BID@08,20 MT 05/02/17 20:00 05/07/17 10:04 Fentanyl Citrate 250 ml @ 0 mls/hr TITRATE IV 05/02/17 10:00 05/06/17 22:21 Propofol (Diprivan 1000 Mg/100ml Inj) 100 ml @ 0 mls/hr TITRATE IV 05/02/17 10:00 05/07/17 00:21 Miscellaneous Information Patient in critical care unit? Ass... Q361D .XX 05/02/17 17:15 05/02/17 17:30 Heparin Sodium/ Dextrose 250 ml @ 0 mls/hr TITRATE IV 05/03/17 02:00 05/07/17 10:07 Epinephrine HCl/ Dextrose (Adrenalin (1:1000) Inj/D5W Inj) 250 ml @ 30 mls/hr TITRATE IV 05/03/17 10:15 05/04/17 09:43 Calcium Acetate 2668 mg 2,668 mg TID PO 05/03/17 09:00 05/07/17 10:05 Cefepime HCl/ Sodium Chloride (Maxipime Inj/NS Inj) 100 ml @ 200 mls/hr Q24H IV 05/06/17 03:00 05/08/17 23:00 05/07/17 03:45 Allopurinol (Zyloprim) 200 mg DAILY PO 05/06/17 09:00 05/07/17 10:05 Artificial Tears (Tears Naturale Opth Soln) 1 drop Q8H EACH EYE 05/05/17 18:00 05/07/17 10:06 Objective Remarks GENERAL: Intubated sedated male supine in hospital bed. SKIN: Warm and dry. HEAD: Normocephalic. EYES: No injection or drainage. NECK: Supple, trachea midline. CARDIOVASCULAR: +S1/S2, tachy RESPIRATORY: anterior canas clear. on mechanical ventilation. GASTROINTESTINAL: Abdomen mildly distended. EXTREMITIES: No cyanosis. edema noted in extremities. NEUROLOGICAL: intubated, sedated Assessment/Plan Problem List: (1) ALDO (acute kidney injury) Status: Acute Plan: --receiving dialysis. --likely d/t cardiogenic shock (2) Pulmonary emboli Status: Acute Plan: --CTA showed large PE --s/p tpa therapy on 05.02. now on heparin gtt. --echo showed right heart strain. (3) Non-Hodgkin lymphoma Status: Acute Plan: --remains critically ill. 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 (5) Cardiogenic shock Status: Acute Plan: --international project manager managing Assessment 47y/o male admitted with pancreatitis, found to have NHL. Plan 1. continue heparin gtt 2. dialysis today 3. monitor for TLS Attending Statement The exam, history, and the medical decision-making described in the above note were completed with the assistance of the mid-level provider. I reviewed and agree with the findings presented. I attest that I had a [id number] encounter with the patient on the same day, and personally performed and documented my assessment and findings in the medical record. Remains sedated on vent. Started on dialysis. Neck adenopathy stable. Not stable for chemotherapy at this time. Problem Qualifiers (1) Non-Hodgkin lymphoma: Brenda Platt May 07, 2017 11:36 Ruslan Connelly MD May 07, 2017 11:50
[2017-05-07] MEDS: fentaNYL DRIP 250 ML IV SCH (12:28)
[2017-05-07] MEDS: PANTOPRAZOLE SODIUM 40 MG VIAL IV PUSH SCH (12:28)
--- NOTE | 2017-05-07 13:07 | HHI.PR ---
Subjective Remarks Remains Sedated Vent dependant . On PEEP 5 and FIo2 35 %. Output was OK. On heparin . Chest X ray shows bilateral infiltrates Objective Vital Signs Date Time Temp Pulse Resp B/P Pulse Ox O2 Delivery O2 Flow Rate FiO2 05/07/17 12:39 35 05/07/17 12:39 96 35 05/07/17 08:18 95 35 05/07/17 08:18 94 Ventilator 35 05/07/17 06:00 84 05/07/17 04:00 35 05/07/17 04:00 80 05/07/17 04:00 99.8 80 19 139/71 99 05/07/17 03:20 99 35 05/07/17 02:00 77 05/07/17 00:00 77 05/07/17 00:00 99.4 77 20 98/54 97 05/07/17 00:00 35 05/06/17 23:18 97 35 05/06/17 22:00 81 05/06/17 20:00 35 05/06/17 20:00 79 05/06/17 20:00 99.0 79 17 91/53 97 05/06/17 18:00 84 05/06/17 16:00 35 05/06/17 16:00 97.5 75 19 107/56 98 05/06/17 16:00 75 05/06/17 14:00 75 I/O 05/06/17 05/06/17 05/06/17 05/07/17 05/07/17 05/07/17 07:00 15:00 23:00 07:00 15:00 23:00 Intake Total 955 ml 1065 ml 1169 ml 861 ml Output Total 100 ml 200 ml 2125 ml 1075 ml Balance 855 ml 865 ml -956 ml -214 ml IV Total 429 ml 393 ml 386 ml 403 ml Tube Feeding 526 ml 432 ml 583 ml 458 ml Other 240 ml 200 ml Output Urine Total 100 ml 200 ml 125 ml 75 ml Emesis 1000 ml Hemodialysis 2000 ml Result Diagram: 05/07/17 0424 05/07/17 0424 Objective Remarks GENERAL: This is a well-nourished, well-developed patient,intubated and on Vent support. HEENT: ET tube in. CARDIOVASCULAR: Regular rate and rhythm without murmurs, gallops, or rubs. RESPIRATORY: Diffuse expiratory wheezes, Occ Crackles at Bases.diminished breath sounds bilaterally. GASTROINTESTINAL: Abdomen soft, non-tender,nondistended. + bowel sounds MUSCULOSKELETAL: Extremities show 1 + edema. NEURO: Sedated. Assessment and Plan Assessment and Plan ASSESSMENT 1. Acute kidney injury. 2. Respiratory failure. 3. Pulmonary embolism. 4. Non-Hodgkin's lymphoma. 5. Anemia. 6. Hyperphosphatemia. Plan : 1. Wean FIo2 and PEEP to keep sat >92. 2. Nebs qid , duoneb 3. Anticoagulation as Ordered/Heparin 4. CBC,BMP in am 5. Tube feeds at 60 CC 6. CPAP trial daily 7. Continue Dialysis as planned. 8. Cont antibiotics. Con Pierre MD May 07, 2017 13:07
--- NOTE | 2017-05-07 16:06 | HHI.IDPN ---
Subjective Subjective Remarks Patient is a 47-year-old male, initially presented to the hospital complaining of abdominal pain, nausea, and vomiting. He was found to have pancreatitis, and he also had elevated liver function tests. There is history of previous alcohol abuse. He was also found to have a right base pneumonia, and he was started on a Zithromax and Rocephin. Patient also had some abnormality on his urinalysis and was also being treated for UTI. His imaging study showed right hilar mass, and he had evidence on exam of supraclavicular lymph nodes. CT of the chest revealed pleural effusion, and extensive mediastinal and axillary lymphadenopathy. 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 Oncology has been following the patient, and patient was started on chemotherapy on April 30. Patient's pancreatitis has improved although he still has some abdominal pain. He got Rituxan on on May 08, and he is currently getting Decadron, cyclophosphamide, as well as etoposide /Doxorubicin/Vincristine. This morning he went into respiratory failure, and transferred to the ICU, and ended up getting intubated. Pulmonary started seeing the patient around April 29 and at that time he had shortness of breath. He had bilateral pleural effusion, and underwent thoracentesis on the right, and the fluid is exudative. Patient had CTA today, and it showed pulmonary embolism, as well as no infiltrates on the right side. He is afebrile. Currently on the vent, and on sedation. Notes reviewed Temps ok Sedated on the vent Started on HD yesterday Getting 2nd HD this afternoon BP ok, off pressors Renal US no hydro Urine eos negative Palliative medicine notes reviewed - family still wants aggressive measures Echo noted Getting chemo for NHL Last CXR - stable Sputum normal harris BC negative Antibiotics Cefepime Lines Port Past Medical History Previous tobacco and ETOH use Allergies: Coded Allergies: No Known Allergies (Unverified , 04/18/17) Objective . Vital Signs Date Time Temp Pulse Resp B/P Pulse Ox O2 Delivery O2 Flow Rate FiO2 05/07/17 14:15 35 05/07/17 14:00 85 05/07/17 12:39 35 05/07/17 12:39 35 05/07/17 12:39 96 35 05/07/17 12:00 90 05/07/17 12:00 98.2 90 17 146/76 95 05/07/17 12:00 35 05/07/17 10:00 87 05/07/17 09:00 87 05/07/17 08:18 95 35 05/07/17 08:18 94 Ventilator 35 05/07/17 08:00 99.1 85 18 147/73 94 05/07/17 08:00 35 05/07/17 08:00 85 05/07/17 06:00 84 05/07/17 04:00 35 05/07/17 04:00 80 05/07/17 04:00 99.8 80 19 139/71 99 05/07/17 03:20 99 35 05/07/17 02:00 77 05/07/17 00:00 77 05/07/17 00:00 99.4 77 20 98/54 97 05/07/17 00:00 35 05/06/17 23:18 97 35 05/06/17 22:00 81 05/06/17 20:00 35 05/06/17 20:00 79 05/06/17 20:00 99.0 79 17 91/53 97 05/06/17 18:00 84 05/06/17 05/06/17 05/07/17 15:00 23:00 07:00 Intake Total 1065 ml 1169 ml 861 ml Output Total 200 ml 2125 ml 1075 ml Balance 865 ml -956 ml -214 ml IV Total 393 ml 386 ml 403 ml Tube Feeding 432 ml 583 ml 458 ml Other 240 ml 200 ml Output Urine Total 200 ml 125 ml 75 ml Emesis 1000 ml Hemodialysis 2000 ml . Laboratory Tests Test 05/06/17 05/07/17 04:00 04:24 White Blood Count 6.5 TH/MM3 10.7 TH/MM3 Red Blood Count 2.87 MIL/MM3 2.83 MIL/MM3 Hemoglobin 8.4 GM/DL 8.5 GM/DL Hematocrit 24.2 % 23.7 % Mean Corpuscular Volume 84.6 FL 83.6 FL Mean Corpuscular Hemoglobin 29.2 PG 30.0 PG Mean Corpuscular Hemoglobin 34.5 % 35.9 % Concent Red Cell Distribution Width 16.7 % 16.3 % Platelet Count 251 TH/MM3 284 TH/MM3 Mean Platelet Volume 7.0 FL 7.7 FL Laboratory Tests Test 05/06/17 05/07/17 04:00 04:24 Sodium Level 132 MEQ/L 130 MEQ/L Potassium Level 4.7 MEQ/L 4.8 MEQ/L Chloride Level 96 MEQ/L 94 MEQ/L Carbon Dioxide Level 21.1 MEQ/L 22.6 MEQ/L Anion Gap 15 MEQ/L 13 MEQ/L Blood Urea Nitrogen 73 MG/DL 64 MG/DL Creatinine 5.84 MG/DL 5.40 MG/DL Estimat Glomerular Filtration 13 ML/MIN 14 ML/MIN Rate Random Glucose 112 MG/DL 121 MG/DL Uric Acid 6.9 MG/DL 5.8 MG/DL Calcium Level 7.8 MG/DL 8.4 MG/DL Phosphorus Level 4.4 MG/DL 4.2 MG/DL Magnesium Level 2.3 MG/DL 2.2 MG/DL Lactate Dehydrogenase 458 U/L 466 U/L Imaging Last Impressions Chest X-Ray 05/03/17 0600 Signed Impressions: Service Date/Time: Wednesday, May 03, 2017 03:46 - CONCLUSION: Improving infiltrates. No Tacos Garcia MD Head CT 05/02/17 0000 Signed Impressions: Service Date/Time: Tuesday, May 02, 2017 16:45 - CONCLUSION: No acute intracranial disease. Tray Patel MD CT Angiography 05/02/17 0000 Signed Impressions: Service Date/Time: Tuesday, May 02, 2017 11:10 - CONCLUSION: 1. There is pulmonary embolus in the right pulmonary artery, right upper lobe and lower lobe branches. 2. Resorption of previously seen gas in the left axilla with fluid collection at this site with postprocedural change and possibly postprocedural hemorrhage not significantly changed in size. 3. Interval development of right lung airspace process may represent postobstructive pneumonia and there is mucus within the trachea not present yesterday. 4. Right pleural effusion is smaller and left pleural effusion is larger. 5. No change in bulky adenopathy. Leonor Chavez MD Upper Extremity Ultrasound 04/30/17 0000 Signed Impressions: Service Date/Time: April 12:25 - CONCLUSION: There some superficial thrombosis of a vein in the forearm. The deep venous system is patent. Large fluid collection left axilla. Significant soft tissue edema throughout the upper arm. Rinku Hillman MD Thoracentesis Ultrasound 04/30/17 0000 Signed Impressions: Service Date/Time: April 12:14 - CONCLUSION: Uncomplicated ultrasound guided thoracentesis. Tray Patel MD Port Line Insertion 04/27/17 0000 Signed Impressions: Service Date/Time: Thursday, April 27, 2017 14:56 - CONCLUSION: 1. Bulky bilateral lower cervical lymphadenopathy. 2. Uncomplicated ultrasound and fluoroscopic guided implanted central venous port catheter placement as described in detail above. An 8 Setswana Power port was placed. Liang Peralta MD Bone Biopsy CT 04/27/17 0000 Signed Impressions: Service Date/Time: Thursday, April 27, 2017 16:22 - CONCLUSION: 1. Uncomplicated CT guided bone marrow aspirate. 2. Uncomplicated CT guided bone marrow biopsy. Tray Patel MD Chest CT 04/25/17 0000 Signed Impressions: Service Date/Time: Wednesday, April 26, 2017 19:00 - CONCLUSION: The right pleural effusion is slightly larger on the left side has not changed. Extensive bulky adenopathy as before and malignancies such as lymphoma is suspected. Leonor Chavez MD Gall Bladder Ultrasound 04/22/17 0000 Signed Impressions: Service Date/Time: Saturday, April 22, 2017 07:35 - CONCLUSION: Small liver with focal abdomen only incompletely evaluated. Large right pleural effusion. effusion. Kirk Briceño MD FACR Abdomen CT 04/20/17 0000 Signed Impressions: Service Date/Time: Thursday, April 20, 2017 19:40 - CONCLUSION: Limited exam because of lack of intravenous contrast. Lymphoma is suspected. Pathological diagnosis could be obtained with ultrasound biopsy of the cervical, axillary or inguinal adenopathy. Kirk Briceño MD FACR Physical Exam GENERAL: sedated on the vent, not in respiratory distress. SKIN: Warm and dry. No generalized rash, no ecchymoses and no evidence of embolic lesions. HEAD: Atraumatic. Normocephalic. No temporal wasting, or tenderness. EYES: [place] conjunctiva. No petechia or hemorrhage. Pupils equal, round and reactive to light. Has dirty sclera. No injection or drainage. EARS, NOSE AND THROAT: Nose without bleeding or purulent nasal discharge. Mucous membranes moist. Orally intubated. Has poor dentition. NECK: Trachea midline. Supple and not tender, no meningeal signs. Has significant lymphadenopathy. CARDIOVASCULAR: Regular rate and rhythm. No murmurs, rubs or gallops heard RESPIRATORY: Bilateral rhonchi. Port look ok. ABDOMEN: Distended, hypoactive bowel sounds, tympanitic, no reaction to palpation. EXTREMITIES: No clubbing, cyanosis, or edema. No joint effusion. Warm. Has very dry skin both feet. NEUROLOGICAL: Sedated. No babinski, no clonus PSYCHIATRIC: Unable to assess LINE: Port no evidence of infection. Multiple PIV no evidence of infection : Singh in place, urine looks clear Assessment & Plan Remarks IMPRESSION Respiratory failure, with multiple PE on R, has new infiltrates, ?PNA, ? infarct - PE on R and infiltrates on R Has Tomi effusions, tap is exudative, ?lymphoma New NHL, on chemo 04/30 Pancreatitis, and elevated LFT likely due to ETOH Acute renal failure, ?sepsis, ?contrast RECOMMENDATION Continue Cefepime - give until 05/08 (7 days Rx) Follow C/S and adjust Abx Monitor progress Getting chemo On HD Maggy Solis MD May 07, 2017 16:06
--- NOTE | 2017-05-07 16:49 | HHI.CCPN ---
Subjective Remarks/Hospital Course Hospital Course: This is a 47yM who was originally admitted for acute pancreatitis and during this hospital admission found to have an acute aggressive non-hodgkin's lymphoma. he has had progressive shortness of breath secondary to bilateral pleural effusions and adenopathy. He rapid responsed today for worsening hypoxemia on a NRB and in severe respiratory distress. When I evaluated the patient on arrival to the [facility] [place], he is in severe respiratory distress, unable to speak, RR > 40, spo2 92% on NRB, using accessory muscles. CXR without over fluid overload. additional information is unobtainable secondary to the clinical condition of the patient. Subjective: 05/03: TPA given overnight. started on heparin drip after. this morning, oligoaneuric with Cr rise to 3.3 this AM. also more hypotensive, although fio2 significantly improved to 45%. bilateral pleural effusions persist. echo yesterday with biventricular dysfunction. hgb stable. 05/04:Flolan decreased to 20 from 30 ngs. Slight improvement in chest x-ray. Epinephrine infusion currently being weaned . Nephrology consulted secondary to continue rising creatinine. 05/05: Hemodynamically stable, epinephrine weaned off yesterday. Nephrology following Dr. Haley with plans for possible dialysis tomorrow. Discussed with hematology oncology plan for reinitiation of chemotherapy with initiation of dialysis. Respiratory system with Flolan decrease stable. Plan to decrease Flolan to 10 ng, with potential for cessation in a.m.. 05/06: No acute issues overnight. Attempts at CPAP trials unsuccessful yesterday. Vascular catheter placement this a.m.. Plan for dialysis today. ABGs obtained, Flolan discontinued today. Possible plan for reinitiation of chemotherapy. 05/07: Overnight the patient was noted to have emesis, and large residual tube feeds. Reglan 10 mg every 8 hours initiated today. Will reinitiate tube feeds at trickle 10 cc/hour. CPAP trials initiated, the patient tolerated CPAP for approximately 3 hours today. Hemodialysis initiated yesterday 2 L off, plan for 2 L removal today. The patient oxygen level maintained, will continue to wean. Repeat echo planned for Thursday, 1 week post TPA. Objective Vital Signs Date Time Temp Pulse Resp B/P Pulse Ox O2 Delivery O2 Flow Rate FiO2 05/07/17 14:15 35 05/07/17 14:00 85 05/07/17 12:39 96 05/07/17 12:00 98.2 17 146/76 05/07/17 08:18 Ventilator Intake and Output 05/06/17 05/06/17 05/07/17 08:00 16:00 00:00 Intake Total 955 ml 1065 ml 1169 ml Output Total 100 ml 200 ml 2125 ml Balance 855 ml 865 ml -956 ml Result Diagram: 05/07/17 0424 05/07/17 0424 Imaging Last Impressions Chest X-Ray 05/03/17 0600 Signed Impressions: Service Date/Time: Wednesday, May 03, 2017 03:46 - CONCLUSION: Improving infiltrates. No Tacos Garcia MD Head CT 05/03/17 0000 Signed Impressions: Service Date/Time: Wednesday, May 03, 2017 17:22 - CONCLUSION: No acute intracranial disease. No hemorrhage seen. Tray Patel MD CT Angiography 05/02/17 0000 Signed Impressions: Service Date/Time: Tuesday, May 02, 2017 11:10 - CONCLUSION: 1. There is pulmonary embolus in the right pulmonary artery, right upper lobe and lower lobe branches. 2. Resorption of previously seen gas in the left axilla with fluid collection at this site with postprocedural change and possibly postprocedural hemorrhage not significantly changed in size. 3. Interval development of right lung airspace process may represent postobstructive pneumonia and there is mucus within the trachea not present yesterday. 4. Right pleural effusion is smaller and left pleural effusion is larger. 5. No change in bulky adenopathy. Leonor Chavez MD Upper Extremity Ultrasound 04/30/17 0000 Signed Impressions: Service Date/Time: April 12:25 - CONCLUSION: There some superficial thrombosis of a vein in the forearm. The deep venous system is patent. Large fluid collection left axilla. Significant soft tissue edema throughout the upper arm. Rinku Hillman MD Thoracentesis Ultrasound 04/30/17 0000 Signed Impressions: Service Date/Time: April 12:14 - CONCLUSION: Uncomplicated ultrasound guided thoracentesis. Tray Patel MD Port Line Insertion 04/27/17 0000 Signed Impressions: Service Date/Time: Thursday, April 27, 2017 14:56 - CONCLUSION: 1. Bulky bilateral lower cervical lymphadenopathy. 2. Uncomplicated ultrasound and fluoroscopic guided implanted central venous port catheter placement as described in detail above. An 8 [employer] port was placed. Liang Peralta MD Bone Biopsy CT 04/27/17 0000 Signed Impressions: Service Date/Time: Thursday, April 27, 2017 16:22 - CONCLUSION: 1. Uncomplicated CT guided bone marrow aspirate. 2. Uncomplicated CT guided bone marrow biopsy. Tray Patel MD Chest CT 04/25/17 0000 Signed Impressions: Service Date/Time: Wednesday, April 26, 2017 19:00 - CONCLUSION: The right pleural effusion is slightly larger on the left side has not changed. Extensive bulky adenopathy as before and malignancies such as lymphoma is suspected. Leonor Chavez MD Gall Bladder Ultrasound 04/22/17 0000 Signed Impressions: Service Date/Time: Saturday, April 22, 2017 07:35 - CONCLUSION: Small liver with focal abdomen only incompletely evaluated. Large right pleural effusion. effusion. Kirk Briceño MD FACR Abdomen CT 04/20/17 0000 Signed Impressions: Service Date/Time: Thursday, April 20, 2017 19:40 - CONCLUSION: Limited exam because of lack of intravenous contrast. Lymphoma is suspected. Pathological diagnosis could be obtained with ultrasound biopsy of the cervical, axillary or inguinal adenopathy. Kirk Briceño MD FACR Last Impressions Chest X-Ray 05/02/17 0000 Signed Impressions: Service Date/Time: Tuesday, May 02, 2017 08:11 - CONCLUSION: There is mild improvement in aeration of the right lower lung, otherwise not significantly changed. Leonor Chavez MD Upper Extremity Ultrasound 04/30/17 0000 Signed Impressions: Service Date/Time: April 12:25 - CONCLUSION: There some superficial thrombosis of a vein in the forearm. The deep venous system is patent. Large fluid collection left axilla. Significant soft tissue edema throughout the upper arm. Rinku Hillman MD Thoracentesis Ultrasound 04/30/17 0000 Signed Impressions: Service Date/Time: April 12:14 - CONCLUSION: Uncomplicated ultrasound guided thoracentesis. Tray Patel MD Port Line Insertion 04/27/17 0000 Signed Impressions: Service Date/Time: Thursday, April 27, 2017 14:56 - CONCLUSION: 1. Bulky bilateral lower cervical lymphadenopathy. 2. Uncomplicated ultrasound and fluoroscopic guided implanted central venous port catheter placement as described in detail above. An 8 [place] [employer] port was placed. Liang Peralta MD Bone Biopsy CT 04/27/17 0000 Signed Impressions: Service Date/Time: Thursday, April 27, 2017 16:22 - CONCLUSION: 1. Uncomplicated CT guided bone marrow aspirate. 2. Uncomplicated CT guided bone marrow biopsy. Tray Patel MD Chest CT 04/25/17 0000 Signed Impressions: Service Date/Time: Wednesday, April 26, 2017 19:00 - CONCLUSION: The right pleural effusion is slightly larger on the left side has not changed. Extensive bulky adenopathy as before and malignancies such as lymphoma is suspected. Leonor Chavez MD Gall Bladder Ultrasound 04/22/17 0000 Signed Impressions: Service Date/Time: Saturday, April 22, 2017 07:35 - CONCLUSION: Small liver with focal abdomen only incompletely evaluated. Large right pleural effusion. effusion. Kirk Briceño MD FACR Abdomen CT 04/20/17 0000 Signed Impressions: Service Date/Time: Thursday, April 20, 2017 19:40 - CONCLUSION: Limited exam because of lack of intravenous contrast. Lymphoma is suspected. Pathological diagnosis could be obtained with ultrasound biopsy of the cervical, axillary or inguinal adenopathy. Kirk Briceño MD FACR Objective Remarks General: Well-nourished well-developed middle-aged male, lying in bed, intubated, sedated heent: perrl. mucous membranes moist neck: no jvd. trachea midline orotracheally intubated chest: Right chest Port-A-Cath in situ decreased BS at the bases bilaterally. equal chest rise. PRVC, 45% fio2. Left IJ vas catheter cv: tachycardic rate, regular rhythm. No murmurs rubs or gallops abd: soft, nontender, nondistended. no guarding. extr: trace peripheral edema. distal pulses 1+ neuro: RASS -2. Noted spontaneous movement of extremities 4, intubated and sedated. Procedures 04/[address] excision biopsy 04/27- port placement 05/02-TPA 05/06-left IJ Vas-Cath placement A/P Assessment and Plan Assessment: 47yM with aggressive large B cell lymphoma, acute pancreatitis, now with submassive PE, acute cardiogenic shock, acute hypoxic respiratory failure, now oligoaneuric acute kidney injury secondary to shock. Currently inotropic therapy with epinephrine and inhaled flolan , decreased for RV support. Remains very critically ill. Will be unable to add invasive monitoring until his TPA window x 24h is complete. Also will need drainage of his pleural effusions, although will hold off for now given cardiogenic shock. Plan by Systems: Neuro: -- Wean Propofol, continue fentanyl infusions for goal RASS -2 -- repeat head on 05/03 CT 24h after TPA-no abnormality --Daily sedation vacation Respiratory: Acute Hypoxic Respiratory Failure Acute Submassive Pulmonary Embolism Bilateral pleural effusions, large, acute -- vent bundle, hob at 30 degrees, --Every 6 hours scheduled nebs -- wean fio2 for goal spo2 > 90% -- Discontinued inhaled flolan 05/06 -- Follow-up chest x-ray and ABGs --Continue CPAP trials Cardiovascular: Acute Submassive Pulmonary Embolism Right Heart Dysfunction Global severe left ventricular systolic dysfunction Cardiogenic Shock -- high risk for sudden cardiac s/p acute PE -- Epinephrine discontinued 05/04 -- Maintain a goal MAP > 65 mmHg -- 2d echo 05/02: EF 30-35%, RV dysfunction with dilation --Repeat ECHO limited study on 05/09 Renal: Acute Kidney Injury -- likely secondary to cardiogenic shock - Nephrology following, Dr. Haley --Left IJ vas catheter placement-initiation of hemodialysis today -- continue shepard with strict I/Os. --Hemodialysis per nephrology FEN/GI: Hyperphosphatemia Hyperkalemia Hypocalcemia Acute protein calorie malnutrition- severe -- per the echo from yesterday, intravascular volume status is appropriate, but very likely will get volume overloaded today given severe oliguria. will minimize excess iv fluids -- tube feeds --GI following -- PhosLo -- daily electrolytes, replete per ICU protocol Heme/ID Acute Large Cell B-cell lymphoma Pulmonary Embolism -- hematology/oncology following Dr. Connelly-tentative plan to resume CHOP therapy -- chemo on hold secondary to his acute life-threatening illnesses. -- continue heparin drip, goal PTT 60 - 80. Will eventually transition to Coumadin Endocrine: Hyperglycemia of Critical Illness -- SSI, q6h, med scale Msk: --PT evaluation and treat --Multi-Podus boots prevention of foot drop --PT daily functional maintenance Prophylaxis: DVT: SCDs, heparin drip GI: protonix Lines: -- port right chest --Left IJ vas catheter, peripheral IVs 2 -- shepard Dispo: This patient remains critically ill with one or more organ systems which are or may become a threat to life. I have spent in excess of 25 minutes discontinuously in the care and management of this patient. This time is exclusive of procedures, and includes, but is not limited to, evaluation of the patient, review of the medical record, discussions with family, consultants, nursing staff, or respiratory therapy, and documentation in the medical record. Physician Lyudmila Aldrich MD May 07, 2017 16:49
[2017-05-07] MEDS ORDERED: GELATIN 12 MM/7 MM FOAM TOPICAL PRN (18:00)
[2017-05-07] MEDS ORDERED: SODIUM CHLOR 0.9% 1000 ML IV PRN (18:00)
[2017-05-07] MEDS: ARTIFICIAL TEARS OPTH OINT 3.5 APPLIC/3.5 GM TUBO EACH EYE SCH (18:00)
[2017-05-07] MEDS ORDERED: cloNIDine HCL 0.1 MG TAB PO PRN (18:00)
[2017-05-07] MEDS ORDERED: NITROGLYCERIN 0.4 MG SL 25 TABS/BTL SL PRN (18:00)
[2017-05-07] MEDS ORDERED: ALBUMIN HUMAN 25% 25 GM/100 ML BAGP IV PRN (18:00)
[2017-05-07] MEDS ORDERED: MANNITOL 12.5 GM/50 ML VIAL IV PRN (18:00)
[2017-05-07] MEDS ORDERED: NS 250 ML IV PRN (18:00)
[2017-05-07] MEDS ORDERED: ACETAMINOPHEN 325 MG TAB PO PRN (18:00)
[2017-05-07] MEDS ORDERED: ONDANSETRON HCL 4 MG/2 ML VIAL IV PRN (18:00)
[2017-05-07] MEDS ORDERED: HEPARIN SODIUM - IV 10,000 UNITS/10 ML VIAL IV FLUSH PRN (18:00)
[2017-05-07] MEDS ORDERED: diphenhydrAMINE HCL 25 MG CAP PO PRN (18:00)
--- NOTE | 2017-05-07 18:08 | HHI.NPPN ---
Subjective History of Present Illness 47-year-old male with no known past medical history who came to the hospital with complaint of nausea, vomiting and abdominal pain on April 18. I was called to see the patient because of elevated BUN and creatinine. The patient had a creatinine of 1.3 on presentation which improved to 0.7 and 0.8, then started increasing for last few days. Additional Remarks Patient remain intubated and sedated, clinically same, on A/C. Objective Data Data 05/06/17 05/07/17 19:00 07:00 Intake Total 1065 ml 2030 ml Output Total 2200 ml 1200 ml Balance -1135 ml 830 ml IV Total 393 ml 789 ml Tube Feeding 432 ml 1041 ml Other 240 ml 200 ml Output Urine Total 200 ml 200 ml Emesis 1000 ml Hemodialysis 2000 ml Vital Signs Date Time Temp Pulse Resp B/P Pulse Ox O2 Delivery O2 Flow Rate FiO2 05/07/17 16:47 97 35 05/07/17 14:15 35 05/07/17 14:00 85 05/07/17 12:39 35 05/07/17 12:39 35 05/07/17 12:39 96 35 05/07/17 12:00 90 05/07/17 12:00 98.2 90 17 146/76 95 05/07/17 12:00 35 05/07/17 10:00 87 05/07/17 09:00 87 05/07/17 08:18 95 35 05/07/17 08:18 94 Ventilator 35 05/07/17 08:00 99.1 85 18 147/73 94 05/07/17 08:00 35 05/07/17 08:00 85 05/07/17 06:00 84 05/07/17 04:00 35 05/07/17 04:00 80 05/07/17 04:00 99.8 80 19 139/71 99 05/07/17 03:20 99 35 05/07/17 02:00 77 05/07/17 00:00 77 05/07/17 00:00 99.4 77 20 98/54 97 05/07/17 00:00 35 05/06/17 23:18 97 35 05/06/17 22:00 81 05/06/17 20:00 35 05/06/17 20:00 79 05/06/17 20:00 99.0 79 17 91/53 97 -: 05/07/17 0424 05/07/17 0424 Physical Exam General Appearance Remarks Intubated and sedated. Eyes Eye Exam: Pupils Equal Throat Throat Exam: Oral Mucosa [place] & Moist Pulmonary Resp Exam: Crackles, Rhonchi, Decreased Bases, Diminished Breath Sounds, Poor Inspiratory Effort Cardiology CV Exam: Regular, Normal Sinus Rhythm Gastrointestinal/Abdomen GI Exam: Soft, Non-Tender, Bowel Sounds Present, Distended Extremeties Extremities Exam: Trace Edema Neurologic Neuro Exam: Sedated Assessment/Plan Assessment Summary: ALDO/Acute Renal Failure Problem List: (1) Non-Hodgkin lymphoma (2) Adenopathy (3) Pleural effusion (4) Shortness of breath (5) Pulmonary emboli (6) Acute pancreatitis (7) ALDO (acute kidney injury) Plan Patient has minimal urine out put. Urine Na. was low, and Eosinophils negative. Creatinine remain elevated. Started on HD after the Vascath on 05/06. Avoid Nephrotoxins. Follow BUN and Creatinine and urine out put. HD done and 2.5 liters removed. Tolerated well, continue HD as needed. Problem Qualifiers (1) Non-Hodgkin lymphoma: (2) Acute pancreatitis: Qualified Code: K85.20 - Alcohol-induced acute pancreatitis, unspecified complication status Leonid Haley MD May 07, 2017 18:08
[2017-05-08] VITALS (18 sets, daily range): BP systolic 112–154; BP diastolic 64–79; PULSE 80–96; RESP 14–20; TEMP 97.5–102.9; O2SAT 94–100
[2017-05-08] MEDS: ARTIFICIAL TEARS OPTH OINT 3.5 APPLIC/3.5 GM TUBO EACH EYE SCH ×3 (01:36→17:44)
[2017-05-08] MEDS: PROPOFOL 1000 MG/100 ML INJ 100 ML IV SCH ×5 (01:36→22:18)
[2017-05-08] MEDS: CEFEPIME INJ 2,000 MG in SODIUM CHLORIDE 0.9% INJ 100 ML IV SCH (01:36)
[2017-05-08] MEDS: fentaNYL DRIP 250 ML IV SCH ×2 (04:58→14:15)
[2017-05-08 04:59] LABS: APTT (PATIENT) 40.3 SEC (24.3-30.1)
[2017-05-08] MEDS: METOCLOPRAMIDE HCL 10 MG/2 ML VIAL IV PUSH SCH (04:59)
[2017-05-08 05:06] LABS: HEMATOCRIT 23.1 % (39.0-51.0); MEAN CELL VOLUME 84.1 FL (80.0-100.0); MEAN CORPUSCULAR HEMOGLOBIN 28.6 PG (27.0-34.0); PLATELET COUNT 347 TH/MM3 (150-450); RED BLOOD COUNT 2.75 MIL/MM3 (4.50-5.90); RED CELL DISTRIBUTION WIDTH 16.5 % (11.6-17.2); REVIEW FLAG FINAL; WHITE BLOOD COUNT 12.1 TH/MM3 (4.0-11.0)
[2017-05-08 05:12] LABS: BLOOD GAS BASE EXCESS 3.8 mmol/L (-2-2); BLOOD GAS CARBOXYHEMOGLOBIN 1.4 % (0-4); BLOOD GAS HCO3 27 mmol/L (22-26); BLOOD GAS METHEMOGLOBIN 1.4 % (0-2); BLOOD GAS O2 HGB SATURATION 95 % (90-100); BLOOD GAS OXYGEN CONTENT 14.8 Vol % (12.0-20.0); BLOOD GAS PCO2 35 mmHg (38-42); BLOOD GAS PO2 97 mmHg (61-120); CRITICAL VALUE NO; OXYGEN DEVICE VENTILATOR; TEMP CORR TO 98.6
[2017-05-08 05:13] LABS: DRAW SITE LT RADIAL; FIO2 35 %; NUMBER OF ARTERIAL PUNCTURES 1; STAT NO; VENT SETTINGS AC500/14/+7
[2017-05-08 05:46] LABS: BICARBONATE 27.9 MEQ/L (21.0-32.0); MAGNESIUM 2.4 MG/DL (1.5-2.5); POTASSIUM 3.9 MEQ/L (3.5-5.1); URIC ACID 5.9 MG/DL (2.6-7.2)
[2017-05-08] MEDS: INSULIN NovoLIN REGULAR SUPPLEMENTAL SCALE SQ SCH ×4 (06:00→17:45)
[2017-05-08] MEDS: HEPARIN-D5W 25,000 U/250 ML 250 ML IV SCH (07:28)
[2017-05-08] MEDS: CHLORHEXIDINE 0.12% (ORAL KIT) 15 ML CUP MT SCH ×2 (08:00→20:21)
--- NOTE | 2017-05-08 08:03 | RADRPT ---
EXAM DATE/TIME: 05/08/2017 07:04 [facility] COMPARISON: No previous studies available for comparison. INDICATIONS : Abdominal pain, pancreatitis MEDICAL HISTORY : Pancreatitis. Dehydration, ET tube SURGICAL HISTORY : None. ENCOUNTER: Subsequent ACUITY: 2 weeks PAIN SCORE: Non-responsive. LOCATION: Bilateral abdomen FINDINGS: There are scattered air-filled mildly dilated loops of small bowel raising the possibility of ileus o r partial small bowel obstruction. No free intraperitoneal air is noted. CONCLUSION: 1. Air-filled mildly dilated loops of small bowel suggesting ileus or partial small bowel obstructio n. Clinical correlation is commended. Fidel Isaac MD on May 08, 2017 at 7:40 Board Certified Radiologist. This report was verified electronically.
[2017-05-08] MEDS ORDERED: BISACODYL 10 MG SUPP RECTAL PRN (08:15)
--- NOTE | 2017-05-08 08:19 | HHI.CCPN ---
Subjective Remarks/Hospital Course Hospital Course: This is a 47yM who was originally admitted for acute pancreatitis and during this hospital admission found to have an acute aggressive non-hodgkin's lymphoma. he has had progressive shortness of breath secondary to bilateral pleural effusions and adenopathy. He rapid responsed today for worsening hypoxemia on a NRB and in severe respiratory distress. When I evaluated the patient on arrival to the [facility], he is in severe respiratory distress, unable to speak, RR > 40, spo2 92% on NRB, using accessory muscles. CXR without over fluid overload. additional information is unobtainable secondary to the clinical condition of the patient. Subjective: 05/03: TPA given overnight. started on heparin drip after. this morning, oligoaneuric with Cr rise to 3.3 this AM. also more hypotensive, although fio2 significantly improved to 45%. bilateral pleural effusions persist. echo yesterday with biventricular dysfunction. hgb stable. 05/04:Flolan decreased to 20 from 30 ngs. Slight improvement in chest x-ray. Epinephrine infusion currently being weaned . Nephrology consulted secondary to continue rising creatinine. 05/05: Hemodynamically stable, epinephrine weaned off yesterday. Nephrology following Dr. Haley with plans for possible dialysis tomorrow. Discussed with hematology oncology plan for reinitiation of chemotherapy with initiation of dialysis. Respiratory system with Flolan decrease stable. Plan to decrease Flolan to 10 ng, with potential for cessation in a.m.. 05/06: No acute issues overnight. Attempts at CPAP trials unsuccessful yesterday. Vascular catheter placement this a.m.. Plan for dialysis today. ABGs obtained, Flolan discontinued today. Possible plan for reinitiation of chemotherapy. 05/07: Overnight the patient was noted to have emesis, and large residual tube feeds. Reglan 10 mg every 8 hours initiated today. Will reinitiate tube feeds at trickle 10 cc/hour. CPAP trials initiated, the patient tolerated CPAP for approximately 3 hours today. Hemodialysis initiated yesterday 2 L off, plan for 2 L removal today. The patient oxygen level maintained, will continue to wean. Repeat echo planned for Thursday, 1 week post TPA. 05/08: The patient successfully went through CPAP trials 3-4 hours yesterday. CPAP trials continue today. The patient was noted to have emesis approximately 2 L over the last 24 hours, despite initiation of her prokinetic, Reglan. Reglan discontinued KUB ordered results pending this a.m.. Bowel regimen expanded. The patient underwent hemodialysis with approximately 2 L removed yesterday. Objective Vital Signs Date Time Temp Pulse Resp B/P Pulse Ox O2 Delivery O2 Flow Rate FiO2 05/08/17 06:00 91 05/08/17 04:00 98.9 16 133/77 100 05/08/17 04:00 35 05/07/17 08:18 Ventilator Intake and Output 05/07/17 05/07/17 05/07/17 07:59 15:59 23:59 Intake Total 861 ml 226 ml 238 ml Output Total 1075 ml 1450 ml 3185 ml Balance -214 ml -1224 ml -2947 ml Result Diagram: 05/08/17 0445 05/08/17 0445 Other Results Laboratory Tests Test 05/08/17 05:02 Blood Gas Puncture Site LT RADIAL Blood Gas Patient Temperature 98.6 Blood Gas HCO3 27 mmol/L (22-26) Blood Gas Base Excess 3.8 mmol/L (-2-2) Blood Gas Oxygen Saturation 95 % (90-100) Arterial Blood pH 7.50 (7.380-7.420) Arterial Blood Partial 35 mmHg (38-42) Pressure CO2 Arterial Blood Partial 97 mmHg Pressure O2 (61-120) Arterial Blood Oxygen Content 14.8 Vol % (12.0-20.0) Arterial Blood 1.4 % (0-4) Carboxyhemoglobin Arterial Blood Methemoglobin 1.4 % (0-2) Blood Gas Hemoglobin 11.0 G/DL (12.0-16.0) Oxygen Delivery Device VENTILATOR Blood Gas Ventilator Setting AC500/14/+7 Blood Gas Inspired Oxygen 35 % Imaging Last Impressions Chest X-Ray 05/06/17 0000 Signed Impressions: Service Date/Time: Saturday, May 06, 2017 12:00 - CONCLUSION: 1. Vas-Cath in good position without pneumothorax. Kirk Briceño MD FACR Renal Ultrasound 05/05/17 0000 Signed Impressions: Service Date/Time: Friday, May 05, 2017 20:06 - CONCLUSION: 1. Kidneys are borderline echogenic which can be seen with medical renal disease. 2. No evidence of hydronephrosis. 3. Abdominal ascites. 4. Multiple dilated bowel loops. 5. Bilateral pleural effusions. Tray Patel MD Head CT 05/03/17 0000 Signed Impressions: Service Date/Time: Wednesday, May 03, 2017 17:22 - CONCLUSION: No acute intracranial disease. No hemorrhage seen. Tray Patel MD CT Angiography 05/02/17 0000 Signed Impressions: Service Date/Time: Tuesday, May 02, 2017 11:10 - CONCLUSION: 1. There is pulmonary embolus in the right pulmonary artery, right upper lobe and lower lobe branches. 2. Resorption of previously seen gas in the left axilla with fluid collection at this site with postprocedural change and possibly postprocedural hemorrhage not significantly changed in size. 3. Interval development of right lung airspace process may represent postobstructive pneumonia and there is mucus within the trachea not present yesterday. 4. Right pleural effusion is smaller and left pleural effusion is larger. 5. No change in bulky adenopathy. Leonor Chavez MD Upper Extremity Ultrasound 04/30/17 0000 Signed Impressions: Service Date/Time: April 12:25 - CONCLUSION: There some superficial thrombosis of a vein in the forearm. The deep venous system is patent. Large fluid collection left axilla. Significant soft tissue edema throughout the upper arm. Rinku Hillman MD Thoracentesis Ultrasound 04/30/17 0000 Signed Impressions: Service Date/Time: April 12:14 - CONCLUSION: Uncomplicated ultrasound guided thoracentesis. Tray Patel MD Port Line Insertion 04/27/17 0000 Signed Impressions: Service Date/Time: Thursday, April 27, 2017 14:56 - CONCLUSION: 1. Bulky bilateral lower cervical lymphadenopathy. 2. Uncomplicated ultrasound and fluoroscopic guided implanted central venous port catheter placement as described in detail above. An 8 Urdu Power port was placed. Liang Peralta MD Bone Biopsy CT 04/27/17 0000 Signed Impressions: Service Date/Time: Thursday, April 27, 2017 16:22 - CONCLUSION: 1. Uncomplicated CT guided bone marrow aspirate. 2. Uncomplicated CT guided bone marrow biopsy. Tray Patel MD Chest CT 04/25/17 0000 Signed Impressions: Service Date/Time: Wednesday, April 26, 2017 19:00 - CONCLUSION: The right pleural effusion is slightly larger on the left side has not changed. Extensive bulky adenopathy as before and malignancies such as lymphoma is suspected. Leonor Chavez MD Gall Bladder Ultrasound 04/22/17 0000 Signed Impressions: Service Date/Time: Saturday, April 22, 2017 07:35 - CONCLUSION: Small liver with focal abdomen only incompletely evaluated. Large right pleural effusion. effusion. Kirk Briceño MD FACR Abdomen CT 04/20/17 0000 Signed Impressions: Service Date/Time: Thursday, April 20, 2017 19:40 - CONCLUSION: Limited exam because of lack of intravenous contrast. Lymphoma is suspected. Pathological diagnosis could be obtained with ultrasound biopsy of the cervical, axillary or inguinal adenopathy. Kirk Briceño MD FACR Last Impressions Chest X-Ray 05/03/17 0600 Signed Impressions: Service Date/Time: Wednesday, May 03, 2017 03:46 - CONCLUSION: Improving infiltrates. No Tacos Garcia MD Head CT 05/03/17 0000 Signed Impressions: Service Date/Time: Wednesday, May 03, 2017 17:22 - CONCLUSION: No acute intracranial disease. No hemorrhage seen. Tray Patel MD CT Angiography 05/02/17 0000 Signed Impressions: Service Date/Time: Tuesday, May 02, 2017 11:10 - CONCLUSION: 1. There is pulmonary embolus in the right pulmonary artery, right upper lobe and lower lobe branches. 2. Resorption of previously seen gas in the left axilla with fluid collection at this site with postprocedural change and possibly postprocedural hemorrhage not significantly changed in size. 3. Interval development of right lung airspace process may represent postobstructive pneumonia and there is mucus within the trachea not present yesterday. 4. Right pleural effusion is smaller and left pleural effusion is larger. 5. No change in bulky adenopathy. Leonor Chavez MD Upper Extremity Ultrasound 04/30/17 0000 Signed Impressions: Service Date/Time: April 12:25 - CONCLUSION: There some superficial thrombosis of a vein in the forearm. The deep venous system is patent. Large fluid collection left axilla. Significant soft tissue edema throughout the upper arm. Rinku Hillman MD Thoracentesis Ultrasound 04/30/17 0000 Signed Impressions: Service Date/Time: April 12:14 - CONCLUSION: Uncomplicated ultrasound guided thoracentesis. Tray Patel MD Port Line Insertion 04/27/17 0000 Signed Impressions: Service Date/Time: Thursday, April 27, 2017 14:56 - CONCLUSION: 1. Bulky bilateral lower cervical lymphadenopathy. 2. Uncomplicated ultrasound and fluoroscopic guided implanted central venous port catheter placement as described in detail above. An 8 Urdu Power port was placed. Liang Peralta MD Bone Biopsy CT 04/27/17 0000 Signed Impressions: Service Date/Time: Thursday, April 27, 2017 16:22 - CONCLUSION: 1. Uncomplicated CT guided bone marrow aspirate. 2. Uncomplicated CT guided bone marrow biopsy. Tray Patel MD Chest CT 04/25/17 0000 Signed Impressions: Service Date/Time: Wednesday, April 26, 2017 19:00 - CONCLUSION: The right pleural effusion is slightly larger on the left side has not changed. Extensive bulky adenopathy as before and malignancies such as lymphoma is suspected. Leonor Chavez MD Gall Bladder Ultrasound 04/22/17 0000 Signed Impressions: Service Date/Time: Saturday, April 22, 2017 07:35 - CONCLUSION: Small liver with focal abdomen only incompletely evaluated. Large right pleural effusion. effusion. Kirk Briceño MD FACR Abdomen CT 04/20/17 0000 Signed Impressions: Service Date/Time: Thursday, April 20, 2017 19:40 - CONCLUSION: Limited exam because of lack of intravenous contrast. Lymphoma is suspected. Pathological diagnosis could be obtained with ultrasound biopsy of the cervical, axillary or inguinal adenopathy. Kirk Briceño MD FACR Last Impressions Chest X-Ray 05/02/17 0000 Signed Impressions: Service Date/Time: Tuesday, May 02, 2017 08:11 - CONCLUSION: There is mild improvement in aeration of the right lower lung, otherwise not significantly changed. Leonor Chavez MD Upper Extremity Ultrasound 04/30/17 0000 Signed Impressions: Service Date/Time: April 12:25 - CONCLUSION: There some superficial thrombosis of a vein in the forearm. The deep venous system is patent. Large fluid collection left axilla. Significant soft tissue edema throughout the upper arm. Rinku Hillman MD Thoracentesis Ultrasound 04/30/17 0000 Signed Impressions: Service Date/Time: April 12:14 - CONCLUSION: Uncomplicated ultrasound guided thoracentesis. Tray Patel MD Port Line Insertion 04/27/17 0000 Signed Impressions: Service Date/Time: Thursday, April 27, 2017 14:56 - CONCLUSION: 1. Bulky bilateral lower cervical lymphadenopathy. 2. Uncomplicated ultrasound and fluoroscopic guided implanted central venous port catheter placement as described in detail above. An 8 Urdu Power port was placed. Liang Peralta MD Bone Biopsy CT 04/27/17 0000 Signed Impressions: Service Date/Time: Thursday, April 27, 2017 16:22 - CONCLUSION: 1. Uncomplicated CT guided bone marrow aspirate. 2. Uncomplicated CT guided bone marrow biopsy. Tray Patel MD Chest CT 04/25/17 0000 Signed Impressions: Service Date/Time: Wednesday, April 26, 2017 19:00 - CONCLUSION: The right pleural effusion is slightly larger on the left side has not changed. Extensive bulky adenopathy as before and malignancies such as lymphoma is suspected. Leonor Chavez MD Gall Bladder Ultrasound 04/22/17 0000 Signed Impressions: Service Date/Time: Saturday, April 22, 2017 07:35 - CONCLUSION: Small liver with focal abdomen only incompletely evaluated. Large right pleural effusion. effusion. Kirk Briceño MD FACR Abdomen CT 04/20/17 0000 Signed Impressions: Service Date/Time: Thursday, April 20, 2017 19:40 - CONCLUSION: Limited exam because of lack of intravenous contrast. Lymphoma is suspected. Pathological diagnosis could be obtained with ultrasound biopsy of the cervical, axillary or inguinal adenopathy. Kirk Briceño MD FACR Objective Remarks GENERAL: Well-nourished well-developed middle-aged male, lying in bed, intubated, sedated, responsive GCS 11T HEENT: perrl. mucous membranes moist NECK: no jvd. trachea midline orotracheally intubated PULM: Right chest Port-A-Cath in situ, clear to auscultation. equal chest rise. Left IJ vas catheter CV: Regular, regular rhythm. No murmurs rubs or gallops ABD: soft, nontender, nondistended. no guarding. EXTREMITIES: trace peripheral edema. distal pulses 1+ NEURO: RASS -2. movement of extremities x 4 follows commands, intubated and sedated. Procedures 04/[address] excision biopsy 04/27- port placement 05/02-TPA 05/06-left IJ Vas-Cath placement A/P Assessment and Plan Assessment: 47yM with aggressive large B cell lymphoma, acute pancreatitis, now with submassive PE, acute cardiogenic shock, acute hypoxic respiratory failure, now oligoaneuric acute kidney injury secondary to shock. Currently inotropic therapy with epinephrine and inhaled flolan , decreased for RV support. Remains very critically ill. Will be unable to add invasive monitoring until his TPA window x 24h is complete. Also will need drainage of his pleural effusions, although will hold off for now given cardiogenic shock. Plan by Systems: Neuro: -- Wean Propofol, continue fentanyl infusions for ventilator synchrony - goal RASS -2 -- repeat head on 05/03 CT 24h after TPA-no abnormality --Daily sedation vacation Respiratory: Acute Hypoxic Respiratory Failure Acute Submassive Pulmonary Embolism Bilateral pleural effusions, large, acute -- vent bundle, hob at 30 degrees, --Every 6 hours scheduled nebs -- wean fio2 for goal spo2 > 90% -- Discontinued inhaled flolan 05/06 -- Follow-up chest x-ray and ABGs --Continue CPAP trials as tolerated Cardiovascular: Acute Submassive Pulmonary Embolism Right Heart Dysfunction Global severe left ventricular systolic dysfunction Cardiogenic Shock -- high risk for sudden cardiac s/p acute PE -- Epinephrine discontinued 05/04 -- Maintain a goal MAP > 65 mmHg -- 2d echo 05/02: EF 30-35%, RV dysfunction with dilation --Repeat ECHO limited study on 05/09 Renal: Acute Kidney Injury -- likely secondary to cardiogenic shock - Nephrology following, Dr. Haley --Left IJ vas catheter placement-initiation of hemodialysis today -- continue shepard with strict I/Os. --Hemodialysis per nephrology FEN/GI: Hyperphosphatemia Hyperkalemia Hypocalcemia Acute protein calorie malnutrition- severe Ileus -- per the echo from yesterday, intravascular volume status is appropriate, but very likely will get volume overloaded today given severe oliguria. will minimize excess iv fluids -- 05/08 tube feeds on hold, G-tube to LIWS suction --General surgery following -GI consulted, appreciate recommendations -Expanded bowel regimen MiraLAX, lactulose, due to site suppository -Tube feeds placed on hold. NG tube to low intermittent wall suction-19 50 cc out last 24 hours -Follow-up stat KUB -- PhosLo -- daily electrolytes, replete per ICU protocol Heme/ID Acute Large Cell B-cell lymphoma Pulmonary Embolism -- hematology/oncology following Dr. Connelly-tentative plan to resume CHOP therapy -- chemo on hold secondary to his acute life-threatening illnesses. -- continue heparin drip, goal PTT 60 - 80. Will eventually transition to Coumadin Endocrine: Hyperglycemia of Critical Illness -- SSI, q6h, med scale Msk: --PT evaluation and treat --Multi-Podus boots --PT daily functional maintenance Prophylaxis: DVT: SCDs, heparin drip GI: protonix Lines: -- port right chest --Left IJ vas catheter, peripheral IVs 2 -- shepard Dispo: This patient remains critically ill with one or more organ systems which are or may become a threat to life. I have spent in excess of 30 minutes discontinuously in the care and management of this patient. This time is exclusive of procedures, and includes, but is not limited to, evaluation of the patient, review of the medical record, discussions with family, consultants, nursing staff, or respiratory therapy, and documentation in the medical record. Physician Lyudmila Aldrich MD May 08, 2017 08:19
[2017-05-08] MEDS: NIFEdipine 90 MG SUSTAINED RELEASE TAB PO SCH (09:00)
[2017-05-08] MEDS: LACTULOSE SYRUP 20 GM/30 ML CUP PO SCH ×2 (10:06→20:21)
[2017-05-08] MEDS: POLYETHYLENE GLYCOL 17 GM PKG PO SCH (10:06)
[2017-05-08] MEDS: ALLOPURINOL 100 MG TAB PO SCH (10:06)
[2017-05-08] MEDS: CALCIUM ACETATE 667 MG CAP PO SCH ×3 (10:06→17:45)
[2017-05-08] MEDS: DOCUSATE SODIUM 50 MG/SENNA 8.6 MG TAB PO SCH ×2 (10:07→20:21)
[2017-05-08] MEDS: PANTOPRAZOLE SODIUM 40 MG VIAL IV PUSH SCH (10:07)
--- NOTE | 2017-05-08 13:54 | PD.ONC.PN ---
Subjective Subjective Remarks Tmax 102.9 this AM. Intubated, sedated. HD tomorrow. Objective Data Date Time Temp Pulse Resp B/P Pulse Ox O2 Delivery O2 Flow Rate FiO2 05/08/17 12:00 95 05/08/17 12:00 99.2 95 14 150/74 100 05/08/17 12:00 35 05/08/17 11:59 98 40 05/08/17 11:35 14 05/08/17 10:00 92 05/08/17 08:00 100.2 91 14 145/74 94 05/08/17 08:00 91 05/08/17 08:00 35 05/08/17 07:52 96 35 05/08/17 07:52 95 Ventilator 35 05/08/17 06:00 91 05/08/17 04:00 98.9 91 16 133/77 100 05/08/17 04:00 92 05/08/17 04:00 35 05/08/17 03:21 100 35 05/08/17 02:00 94 05/08/17 00:32 95 35 05/08/17 00:00 96 05/08/17 00:00 98.9 96 20 154/79 100 05/08/17 00:00 35 05/07/17 22:00 85 05/07/17 20:25 97 35 05/07/17 20:00 35 05/07/17 20:00 99.1 86 17 135/67 95 05/07/17 20:00 86 05/07/17 18:00 85 05/07/17 16:47 97 35 05/07/17 16:00 35 05/07/17 16:00 85 05/07/17 16:00 98.2 87 22 109/56 96 05/07/17 14:15 35 05/07/17 14:00 85 Result Diagram: 05/08/17 0445 05/08/17 0445 Laboratory Results Laboratory Tests Test 05/08/17 05/08/17 05/08/17 04:45 04:47 05:02 White Blood Count 12.1 TH/MM3 Red Blood Count 2.75 MIL/MM3 Hemoglobin 7.9 GM/DL Hematocrit 23.1 % Mean Corpuscular Volume 84.1 FL Mean Corpuscular Hemoglobin 28.6 PG Mean Corpuscular Hemoglobin 34.0 % Concent Red Cell Distribution Width 16.5 % Platelet Count 347 TH/MM3 Mean Platelet Volume 7.1 FL Activated Partial 40.3 SEC Thromboplast Time Sodium Level 133 MEQ/L Potassium Level 3.9 MEQ/L Chloride Level 91 MEQ/L Carbon Dioxide Level 27.9 MEQ/L Anion Gap 14 MEQ/L Blood Urea Nitrogen 51 MG/DL Creatinine 5.35 MG/DL Estimat Glomerular Filtration 14 ML/MIN Rate Random Glucose 95 MG/DL Uric Acid 5.9 MG/DL Calcium Level 9.1 MG/DL Phosphorus Level 6.0 MG/DL Magnesium Level 2.4 MG/DL Lactate Dehydrogenase 383 U/L Ammonia LESS THAN 10 MCMOL/L Blood Gas Puncture Site LT RADIAL Blood Gas Patient Temperature 98.6 Blood Gas HCO3 27 mmol/L Blood Gas Base Excess 3.8 mmol/L Blood Gas Oxygen Saturation 95 % Arterial Blood pH 7.50 Arterial Blood Partial 35 mmHg Pressure CO2 Arterial Blood Partial 97 mmHg Pressure O2 Arterial Blood Oxygen Content 14.8 Vol % Arterial Blood 1.4 % Carboxyhemoglobin Arterial Blood Methemoglobin 1.4 % Blood Gas Hemoglobin 11.0 G/DL Oxygen Delivery Device VENTILATOR Blood Gas Ventilator Setting AC500/14/+7 Blood Gas Inspired Oxygen 35 % Imaging Studies Last 24 hours Impressions Abdomen X-Ray 05/08/17 0000 Signed Impressions: Service Date/Time: Monday, May 08, 2017 07:04 - CONCLUSION: 1. Air-filled mildly dilated loops of small bowel suggesting ileus or partial small bowel obstruction. Clinical correlation is commended. Fidel Isaac MD Administered Medications Medications (Trade) Dose Ordered Sig/Shyla Route PRN Reason Start Time Stop Time Status Last Admin Dose Admin Sodium Chloride (NS Flush) 2 ml UNSCH PRN IV FLUSH FLUSH AFTER USING IV ACCESS 04/18/17 17:30 04/21/17 22:27 Senna/Docusate Sodium (Porsha-Colace) 1 tab BID PO 04/18/17 21:00 05/08/17 10:07 Heparin Sodium (Porcine) (Heparin Inj) 5,000 units Q8HR SQ 04/19/17 14:00 Hold 05/02/17 12:46 Hydralazine HCl (Apresoline Inj) 10 mg Q6HR PRN IV PUSH SBP>160, DBP>90 04/21/17 17:00 04/27/17 10:15 Nifedipine (Procardia Xl) 90 mg DAILY PO 04/28/17 09:00 05/06/17 08:16 Clonidine (Catapres) 0.1 mg Q6H PRN PO SBP>160, DBP>90 04/27/17 15:00 04/29/17 08:07 Ondansetron HCl (Zofran Inj) 4 mg Q6HR PRN IV PUSH NAUSEA OR VOMITING 04/30/17 11:30 05/07/17 10:06 Promethazine HCl (Phenergan Inj) 25 mg Q6H PRN IM NAUSEA OR VOMITING 04/30/17 11:30 05/01/17 13:27 Acetaminophen/ Hydrocodone Bitart ([place] 5-325 Mg) 1 tab Q6H PRN PO PAIN SCALE 1 TO 10 04/30/17 11:30 05/01/17 05:15 Metoclopramide HCl (Reglan Inj) 10 mg Q8HR IV PUSH 05/01/17 15:30 Hold 05/08/17 04:59 Insulin Human Regular (NovoLIN R SUPPLEMENTAL SCALE) 1 Q6HR SQ 05/02/17 12:00 05/04/17 18:00 Chlorhexidine Gluconate 15 ml 15 ml BID@08,20 MT 05/02/17 20:00 05/08/17 08:00 Fentanyl Citrate 250 ml @ 0 mls/hr TITRATE IV 05/02/17 10:00 05/08/17 04:58 Propofol (Diprivan 1000 Mg/100ml Inj) 100 ml @ 0 mls/hr TITRATE IV 05/02/17 10:00 05/08/17 11:36 Miscellaneous Information Patient in critical care unit? Ass... [id number] .XX 05/02/17 17:15 05/02/17 17:30 Heparin Sodium/ Dextrose (Heparin-D5W Inj) 250 ml @ 0 mls/hr TITRATE IV 05/03/17 02:00 05/08/17 07:28 Calcium Acetate 2668 mg 2,668 mg TID PO 05/03/17 09:00 05/08/17 10:06 Cefepime HCl/ Sodium Chloride (Maxipime Inj/NS Inj) 100 ml @ 200 mls/hr Q24H IV 05/06/17 03:00 05/08/17 23:00 05/08/17 01:36 Allopurinol (Zyloprim) 200 mg DAILY PO 05/06/17 09:00 05/08/17 10:06 Pantoprazole Sodium (Protonix Inj) 40 mg DAILY IV PUSH 05/07/17 12:00 05/08/17 10:07 Artificial Tears (Lacrilube Opht Oint) 1 applic Q8H EACH EYE 05/07/17 18:00 05/08/17 10:07 Polyethylene Glycol (Miralax) 17 gm DAILY PO 05/08/17 09:00 05/08/17 10:06 Lactulose (Lactulose Liq) 30 ml BID PO 05/08/17 09:00 05/08/17 10:06 Objective Remarks GENERAL: Intubated sedated male lying supine in hospital bed. SKIN: Warm and dry. RIJ with some dried blood noted along bandage. HEAD: Normocephalic. EYES: No injection or drainage. NECK: Supple, trachea midline. CARDIOVASCULAR: +S1/S2, tachy RESPIRATORY: anterior canas clear. on mechanical ventilation. GASTROINTESTINAL: Abdomen firm, distended. EXTREMITIES: No cyanosis. extremities with edema. NEUROLOGICAL: intubated, sedated Assessment/Plan Problem List: (1) ALDO (acute kidney injury) Status: Acute Plan: --nephrology following --received dialysis on 05/06-05/07. will receive dialysis next on 05/09 --likely d/t cardiogenic shock (2) Pulmonary emboli Status: Acute Plan: --CTA showed large PE --s/p tpa therapy on 05.02. now on heparin gtt. --echo showed right heart strain. (3) Non-Hodgkin lymphoma Status: Acute Plan: --remains critically ill. cannot start EPOCH s/p Rituxan on 05.01 --follicular with features of transformation to B-cell lymphoma --Triple hit + --port placed 04/28 --bone marrow biopsy 04/28 --on allopurinol 200mg PO daily --monitor LDH, uric acid --Hepatitis panel negative (4) Pleural effusion Status: Acute Plan: --s/p right sided thoracentesis on 04/30 --will likely need pigtail catheter placement at some point, per engineering tech. (5) Cardiogenic shock Status: Acute Plan: --engineering tech managing Assessment 47y/o male admitted with pancreatitis, found to have NHL. Given Rituxan on 05.01 and developed massive PE on and went into cardiogenic shock with renal failure. Now critically ill in [facility]. s/p thrombolytic therapy Plan 1. continue heparin gtt 2. dialysis today 3. too critically ill for chemotherapy. will continue to monitor. 4. may need pRBC transfusion with dialysis tomorrow. Attending Statement The exam, history, and the medical decision-making described in the above note were completed with the assistance of the mid-level provider. I reviewed and agree with the findings presented. I attest that I had a [id number] encounter with the patient on the same day, and personally performed and documented my assessment and findings in the medical record. Open eyes to command. Neck adenopathy stable. Not stable enough to start chemotherapy at this time. Continue supportive care. Problem Qualifiers (1) Non-Hodgkin lymphoma: Brenda Platt May 08, 2017 13:54 Ruslan Connelly MD May 08, 2017 15:07
--- NOTE | 2017-05-08 14:34 | HHI.IDPN ---
Subjective Subjective Remarks Patient is a 47-year-old male, initially presented to the hospital complaining of abdominal pain, nausea, and vomiting. He was found to have pancreatitis, and he also had elevated liver function tests. There is history of previous alcohol abuse. He was also found to have a right base pneumonia, and he was started on a Zithromax and Rocephin. Patient also had some abnormality on his urinalysis and was also being treated for UTI. His imaging study showed right hilar mass, and he had evidence on exam of supraclavicular lymph nodes. CT of the chest revealed pleural effusion, and extensive mediastinal and axillary lymphadenopathy. 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 Oncology has been following the patient, and patient was started on chemotherapy on April 30. Patient's pancreatitis has improved although he still has some abdominal pain. He got Rituxan on on May 08, and he is currently getting Decadron, cyclophosphamide, as well as etoposide /Doxorubicin/Vincristine. This morning he went into respiratory failure, and transferred to the ICU, and ended up getting intubated. Pulmonary started seeing the patient around April 29 and at that time he had shortness of breath. He had bilateral pleural effusion, and underwent thoracentesis on the right, and the fluid is exudative. Patient had CTA today, and it showed pulmonary embolism, as well as no infiltrates on the right side. He is afebrile. Currently on the vent, and on sedation. Notes reviewed D/W RN Having problems with abdominal distension Has NGT to LIWS Temps low grade Sedated on the vent BP ok, off pressors Renal US no hydro Urine eos negative Antibiotics Cefepime Lines Port Past Medical History Previous tobacco and ETOH use Allergies: Coded Allergies: No Known Allergies (Unverified , 04/18/17) Objective . Vital Signs Date Time Temp Pulse Resp B/P Pulse Ox O2 Delivery O2 Flow Rate FiO2 05/08/17 14:00 81 05/08/17 12:00 95 05/08/17 12:00 99.2 95 14 150/74 100 05/08/17 12:00 35 05/08/17 11:59 98 40 05/08/17 11:35 14 05/08/17 10:00 92 05/08/17 08:00 100.2 91 14 145/74 94 05/08/17 08:00 91 05/08/17 08:00 35 05/08/17 07:52 96 35 05/08/17 07:52 95 Ventilator 35 05/08/17 06:00 91 05/08/17 04:00 98.9 91 16 133/77 100 05/08/17 04:00 92 05/08/17 04:00 35 05/08/17 03:21 100 35 05/08/17 02:00 94 05/08/17 00:32 95 35 05/08/17 00:00 96 05/08/17 00:00 98.9 96 20 154/79 100 05/08/17 00:00 35 05/07/17 22:00 85 05/07/17 20:25 97 35 05/07/17 20:00 35 05/07/17 20:00 99.1 86 17 135/67 95 05/07/17 20:00 86 05/07/17 18:00 85 05/07/17 16:47 97 35 05/07/17 16:00 35 05/07/17 16:00 85 05/07/17 16:00 98.2 87 22 109/56 96 05/07/17 05/07/17 05/08/17 15:00 23:00 07:00 Intake Total 226 ml 238 ml 1074 ml Output Total 1450 ml 3185 ml 75 ml Balance -1224 ml -2947 ml 999 ml IV Total 226 ml 238 ml 274 ml Tube Feeding 0 ml 0 ml Tube Irrigant 800 ml Output Urine Total 150 ml 35 ml 75 ml Stool Total 0 ml Gastric Drainage Total 1300 ml 650 ml Hemodialysis 2500 ml # Bowel Movements 0 0 . Laboratory Tests Test 05/07/17 05/08/17 04:24 04:45 White Blood Count 10.7 TH/MM3 12.1 TH/MM3 Red Blood Count 2.83 MIL/MM3 2.75 MIL/MM3 Hemoglobin 8.5 GM/DL 7.9 GM/DL Hematocrit 23.7 % 23.1 % Mean Corpuscular Volume 83.6 FL 84.1 FL Mean Corpuscular Hemoglobin 30.0 PG 28.6 PG Mean Corpuscular Hemoglobin 35.9 % 34.0 % Concent Red Cell Distribution Width 16.3 % 16.5 % Platelet Count 284 TH/MM3 347 TH/MM3 Mean Platelet Volume 7.7 FL 7.1 FL Laboratory Tests Test 05/07/17 05/08/17 05/08/17 04:24 04:45 04:47 Sodium Level 130 MEQ/L 133 MEQ/L Potassium Level 4.8 MEQ/L 3.9 MEQ/L Chloride Level 94 MEQ/L 91 MEQ/L Carbon Dioxide Level 22.6 MEQ/L 27.9 MEQ/L Anion Gap 13 MEQ/L 14 MEQ/L Blood Urea Nitrogen 64 MG/DL 51 MG/DL Creatinine 5.40 MG/DL 5.35 MG/DL Estimat Glomerular Filtration 14 ML/MIN 14 ML/MIN Rate Random Glucose 121 MG/DL 95 MG/DL Uric Acid 5.8 MG/DL 5.9 MG/DL Calcium Level 8.4 MG/DL 9.1 MG/DL Phosphorus Level 4.2 MG/DL 6.0 MG/DL Magnesium Level 2.2 MG/DL 2.4 MG/DL Lactate Dehydrogenase 466 U/L 383 U/L Ammonia LESS THAN 10 MCMOL/L Imaging Last Impressions Chest X-Ray 05/03/17 0600 Signed Impressions: Service Date/Time: Wednesday, May 03, 2017 03:46 - CONCLUSION: Improving infiltrates. No Tacos Garcia MD Head CT 05/02/17 0000 Signed Impressions: Service Date/Time: Tuesday, May 02, 2017 16:45 - CONCLUSION: No acute intracranial disease. Tray Patel MD CT Angiography 05/02/17 0000 Signed Impressions: Service Date/Time: Tuesday, May 02, 2017 11:10 - CONCLUSION: 1. There is pulmonary embolus in the right pulmonary artery, right upper lobe and lower lobe branches. 2. Resorption of previously seen gas in the left axilla with fluid collection at this site with postprocedural change and possibly postprocedural hemorrhage not significantly changed in size. 3. Interval development of right lung airspace process may represent postobstructive pneumonia and there is mucus within the trachea not present yesterday. 4. Right pleural effusion is smaller and left pleural effusion is larger. 5. No change in bulky adenopathy. Leonor Chavez MD Upper Extremity Ultrasound 04/30/17 0000 Signed Impressions: Service Date/Time: April 12:25 - CONCLUSION: There some superficial thrombosis of a vein in the forearm. The deep venous system is patent. Large fluid collection left axilla. Significant soft tissue edema throughout the upper arm. Rinku Hillman MD Thoracentesis Ultrasound 04/30/17 0000 Signed Impressions: Service Date/Time: April 12:14 - CONCLUSION: Uncomplicated ultrasound guided thoracentesis. Tray Patel MD Port Line Insertion 04/27/17 0000 Signed Impressions: Service Date/Time: Thursday, April 27, 2017 14:56 - CONCLUSION: 1. Bulky bilateral lower cervical lymphadenopathy. 2. Uncomplicated ultrasound and fluoroscopic guided implanted central venous port catheter placement as described in detail above. An 8 [employer] port was placed. Liang Peralta MD Bone Biopsy CT 04/27/17 0000 Signed Impressions: Service Date/Time: Thursday, April 27, 2017 16:22 - CONCLUSION: 1. Uncomplicated CT guided bone marrow aspirate. 2. Uncomplicated CT guided bone marrow biopsy. Tray Patel MD Chest CT 04/25/17 0000 Signed Impressions: Service Date/Time: Wednesday, April 26, 2017 19:00 - CONCLUSION: The right pleural effusion is slightly larger on the left side has not changed. Extensive bulky adenopathy as before and malignancies such as lymphoma is suspected. Leonor Chavez MD Gall Bladder Ultrasound 04/22/17 0000 Signed Impressions: Service Date/Time: Saturday, April 22, 2017 07:35 - CONCLUSION: Small liver with focal abdomen only incompletely evaluated. Large right pleural effusion. effusion. Kirk Briceño MD FACR Abdomen CT 04/20/17 0000 Signed Impressions: Service Date/Time: Thursday, April 20, 2017 19:40 - CONCLUSION: Limited exam because of lack of intravenous contrast. Lymphoma is suspected. Pathological diagnosis could be obtained with ultrasound biopsy of the cervical, axillary or inguinal adenopathy. Kirk Briceño MD FACR Physical Exam GENERAL: sedated on the vent, not in respiratory distress. SKIN: Warm and dry. No generalized rash, no ecchymoses and no evidence of embolic lesions. HEAD: Atraumatic. Normocephalic. No temporal wasting, or tenderness. EYES: [place] conjunctiva. No petechia or hemorrhage. Pupils equal, round and reactive to light. Has dirty sclera. No injection or drainage. EARS, NOSE AND THROAT: Nose without bleeding or purulent nasal discharge. Mucous membranes moist. Orally intubated. Has poor dentition. NECK: Trachea midline. Supple and not tender, no meningeal signs. Has significant lymphadenopathy. CARDIOVASCULAR: Regular rate and rhythm. No murmurs, rubs or gallops heard RESPIRATORY: Bilateral rhonchi. Port look ok. ABDOMEN: Distended, hypoactive bowel sounds, tympanitic, no reaction to palpation. EXTREMITIES: No clubbing, cyanosis, or edema. No joint effusion. Warm. Has very dry skin both feet. NEUROLOGICAL: Sedated. No babinski, no clonus PSYCHIATRIC: Unable to assess LINE: Port no evidence of infection. Multiple PIV no evidence of infection : Singh in place, urine looks clear Assessment & Plan Remarks IMPRESSION Respiratory failure, with multiple PE on R, has new infiltrates, ?PNA, ? infarct - PE on R and infiltrates on R Has Tomi effusions, tap is exudative, ?lymphoma New NHL, on chemo 04/30 Pancreatitis, and elevated LFT likely due to ETOH Acute renal failure, ?sepsis, ?contrast Ileus RECOMMENDATION Continue Cefepime - to finish today Repeat C/S if with recurrent fevers Monitor progress Getting HD per renal, has had 2 HD Vent support per CCM Dr Albino Haywood covering this weekend D/W Maggy Honeycutt MD May 08, 2017 14:34
--- NOTE | 2017-05-08 14:54 | PD.CONS ---
HPI History of Present Illness This is a 47 year old male with hx ETOH abuse who presented with abd pain, n/v, lipase 4915, diagnosed with acute pancreatitis. he was found during this admission to have an aggressive non-hodgkin's lymphoma. He subsequently developed SOB 2/2 pleural effusions and went into respiratory distress and has been on ventilation. Per RN in the last 2 d he began vomiting "tube feed" appearing emesis. 1600cc output from OGT to suction in the last 24h. He also developed distended abd. KUB suggestive of ileus vs PSBO. No BM recently, she cannot tell me when his last BM was other than that it has been days. He was on reglan but this is being held. (Freya Figueroa) PFSH Past Medical History EtOH use and abuse Tobacco use and abuse . Past Surgical History Patient denies any surgical history. (Freya Figueroa) Coded Allergies: No Known Allergies (Unverified , 04/18/17) Family History Patient denies any heart disease or cancer in his family. Patient has 8 children ages 27 to 7 who are alive and well. . Social History Tobacco use: Quit 2 months ago, 1 PPD prior for many years Alcohol use: Quit 2 months ago, 8 pk a day prior (Freya Figueroa) Review of Systems ROS non contributory on vent (Freya Figueroa) GI Exam Vitals I&O Vital Signs Date Time Temp Pulse Resp B/P Pulse Ox O2 Delivery O2 Flow Rate FiO2 05/08/17 14:00 81 05/08/17 12:00 95 05/08/17 12:00 99.2 95 14 150/74 100 05/08/17 12:00 35 05/08/17 11:59 98 40 05/08/17 11:35 14 05/08/17 10:00 92 05/08/17 08:00 100.2 91 14 145/74 94 05/08/17 08:00 91 05/08/17 08:00 35 05/08/17 07:52 96 35 05/08/17 07:52 95 Ventilator 35 05/08/17 06:00 91 05/08/17 04:00 98.9 91 16 133/77 100 05/08/17 04:00 92 05/08/17 04:00 35 05/08/17 03:21 100 35 05/08/17 02:00 94 05/08/17 00:32 95 35 05/08/17 00:00 96 05/08/17 00:00 98.9 96 20 154/79 100 05/08/17 00:00 35 05/07/17 22:00 85 05/07/17 20:25 97 35 05/07/17 20:00 35 05/07/17 20:00 99.1 86 17 135/67 95 05/07/17 20:00 86 05/07/17 18:00 85 05/07/17 16:47 97 35 05/07/17 16:00 35 05/07/17 16:00 85 05/07/17 16:00 98.2 87 22 109/56 96 I/O 05/07/17 05/07/17 05/07/17 05/08/17 05/08/17 05/08/17 07:00 15:00 23:00 07:00 15:00 23:00 Intake Total 861 ml 226 ml 238 ml 1074 ml 255 ml Output Total 1075 ml 1450 ml 3185 ml 75 ml 900 ml Balance -214 ml -1224 ml -2947 ml 999 ml -645 ml IV Total 403 ml 226 ml 238 ml 274 ml 255 ml Tube Feeding 458 ml 0 ml 0 ml Tube Irrigant 800 ml Output Urine Total 75 ml 150 ml 35 ml 75 ml 150 ml Stool Total 0 ml Gastric Drainage Total 1300 ml 650 ml 750 ml Emesis 1000 ml Hemodialysis 2500 ml # Bowel Movements 0 0 0 Imaging Last Impressions Abdomen X-Ray 05/08/17 0000 Signed Impressions: Service Date/Time: Monday, May 08, 2017 07:04 - CONCLUSION: 1. Air-filled mildly dilated loops of small bowel suggesting ileus or partial small bowel obstruction. Clinical correlation is commended. Fidel Isaac MD Chest X-Ray 05/06/17 0000 Signed Impressions: Service Date/Time: Saturday, May 06, 2017 12:00 - CONCLUSION: 1. Vas-Cath in good position without pneumothorax. Kirk Briceño MD FACR Renal Ultrasound 05/05/17 0000 Signed Impressions: Service Date/Time: Friday, May 05, 2017 20:06 - CONCLUSION: 1. Kidneys are borderline echogenic which can be seen with medical renal disease. 2. No evidence of hydronephrosis. 3. Abdominal ascites. 4. Multiple dilated bowel loops. 5. Bilateral pleural effusions. Tray Patel MD Head CT 05/03/17 Signed Impressions: Service Date/Time: Wednesday, May 03, 2017 17:22 - CONCLUSION: No acute intracranial disease. No hemorrhage seen. Tray Patel MD CT Angiography 05/02/17 Signed Impressions: Service Date/Time: Tuesday, May 02, 2017 11:10 - CONCLUSION: 1. There is pulmonary embolus in the right pulmonary artery, right upper lobe and lower lobe branches. 2. Resorption of previously seen gas in the left axilla with fluid collection at this site with postprocedural change and possibly postprocedural hemorrhage not significantly changed in size. 3. Interval development of right lung airspace process may represent postobstructive pneumonia and there is mucus within the trachea not present yesterday. 4. Right pleural effusion is smaller and left pleural effusion is larger. 5. No change in bulky adenopathy. K. Anson Chavez MD Upper Extremity Ultrasound 04/30/17 Signed Impressions: Service Date/Time: April 12:25 - CONCLUSION: There some superficial thrombosis of a vein in the forearm. The deep venous system is patent. Large fluid collection left axilla. Significant soft tissue edema throughout the upper arm. Rinku Hillman MD Thoracentesis Ultrasound 04/30/17 Signed Impressions: Service Date/Time: April 12:14 - CONCLUSION: Uncomplicated ultrasound guided thoracentesis. Tray Patel MD Port Line Insertion 04/27/17 Signed Impressions: Service Date/Time: Thursday, April 27, 2017 14:56 - CONCLUSION: 1. Bulky bilateral lower cervical lymphadenopathy. 2. Uncomplicated ultrasound and fluoroscopic guided implanted central venous port catheter placement as described in detail above. An 8 [employer] port was placed. Liang Peralta MD Bone Biopsy CT 04/27/17 Signed Impressions: Service Date/Time: Thursday, April 27, 2017 16:22 - CONCLUSION: 1. Uncomplicated CT guided bone marrow aspirate. 2. Uncomplicated CT guided bone marrow biopsy. Tray Patel MD Chest CT 04/25/17 0000 Signed Impressions: Service Date/Time: Wednesday, April 26, 2017 19:00 - CONCLUSION: The right pleural effusion is slightly larger on the left side has not changed. Extensive bulky adenopathy as before and malignancies such as lymphoma is suspected. Leonor Chavez MD Gall Bladder Ultrasound 04/22/17 0000 Signed Impressions: Service Date/Time: Saturday, April 22, 2017 07:35 - CONCLUSION: Small liver with focal abdomen only incompletely evaluated. Large right pleural effusion. effusion. Kirk Briceño MD FACR Abdomen CT 04/20/17 0000 Signed Impressions: Service Date/Time: Thursday, April 20, 2017 19:40 - CONCLUSION: Limited exam because of lack of intravenous contrast. Lymphoma is suspected. Pathological diagnosis could be obtained with ultrasound biopsy of the cervical, axillary or inguinal adenopathy. Kirk Briceño MD FACR Laboratory Test 05/08/17 05/08/17 05/08/17 04:45 04:47 05:02 White Blood Count 12.1 TH/MM3 Red Blood Count 2.75 MIL/MM3 Hemoglobin 7.9 GM/DL Hematocrit 23.1 % Mean Corpuscular Volume 84.1 FL Mean Corpuscular Hemoglobin 28.6 PG Mean Corpuscular Hemoglobin 34.0 % Concent Red Cell Distribution Width 16.5 % Platelet Count 347 TH/MM3 Mean Platelet Volume 7.1 FL Activated Partial 40.3 SEC Thromboplast Time Sodium Level 133 MEQ/L Potassium Level 3.9 MEQ/L Chloride Level 91 MEQ/L Carbon Dioxide Level 27.9 MEQ/L Anion Gap 14 MEQ/L Blood Urea Nitrogen 51 MG/DL Creatinine 5.35 MG/DL Estimat Glomerular Filtration 14 ML/MIN Rate Random Glucose 95 MG/DL Uric Acid 5.9 MG/DL Calcium Level 9.1 MG/DL Phosphorus Level 6.0 MG/DL Magnesium Level 2.4 MG/DL Lactate Dehydrogenase 383 U/L Ammonia LESS THAN 10 MCMOL/L Blood Gas Puncture Site LT RADIAL Blood Gas Patient Temperature 98.6 Blood Gas HCO3 27 mmol/L Blood Gas Base Excess 3.8 mmol/L Blood Gas Oxygen Saturation 95 % Arterial Blood pH 7.50 Arterial Blood Partial 35 mmHg Pressure CO2 Arterial Blood Partial 97 mmHg Pressure O2 Arterial Blood Oxygen Content 14.8 Vol % Arterial Blood 1.4 % Carboxyhemoglobin Arterial Blood Methemoglobin 1.4 % Blood Gas Hemoglobin 11.0 G/DL Oxygen Delivery Device VENTILATOR Blood Gas Ventilator Setting AC500/14/+7 Blood Gas Inspired Oxygen 35 % Physical Examination HEENT: normocephalic; atraumatic; no jaundice. OGT with dark greenish brown material in suction cannister, sediments; intubated CHEST: coarse, rhonchi CARDIAC: irr HR ABDOMEN: semifirm, distended, tympanitic no hepatosplenomegaly; bowel sounds faint EXTREMITIES: No clubbing, cyanosis, or edema. SKIN: Normal; no rash; no jaundice. [employer]GER [employer] COMMUNICATION: on vent (Freya Figueroa) Assessment and Plan Plan ASSESSMENT - abd distention, emesis - PSBO vs ileus. pt developed distention, began vomiting TF, 1600 cc brownish greenish material with sediments from OGT in last 24H. KUB 7-17 -->Air-filled mildly dilated loops of small bowel suggesting ileus or partial small bowel obstruction. was on reglan which is now being held. Had lactulose, miralax, suppositories. - acute hypoxic respiratory failure, PE, ALDO on HD, b cell lymphoma - per [facility] - SSE X 2 - could consider CT with contrast - NPO - OGT to LIWS - further recommendations to follow This pt seen by myself and Dr Richey and this note is written on his behalf ( Freya Figueroa) Physician Comments Patient seen and examined Agree with above Continue with current supportive care Monitor labs If patient has no improvement with the enemas then we will most likely pursue CT of the abdomen with oral contrast to assess for bowel obstruction The main concern at this point is that of possible bowel obstruction just because of the volume of emesis and NG return (Manuel Richey MD) Freya Figueroa May 08, 2017 14:54 Manuel Richey MD May 08, 2017 19:59
--- NOTE | 2017-05-08 14:57 | HHI.HCPN ---
Reason for visit a. To assist with evaluation and management of symptoms including: Debility. b. To assist medical decision maker(s) with: better understanding of current medical conditions; weighing benefits/burdens of medical treatment options; making medical treatment decisions. . Subjective/Interval History Mr. Werner is a 47-year-old male with no significant medical history, recently diagnosed with aggressive CD10 positive B-cell non-Hodgkin lymphoma. Clinical course complicated by large pulmonary embolism post TPA, acute hypoxemic respiratory failure required intubation and mechanical ventilation on 05/02/17 and cardiogenic shock requiring inotropic therapy and acute kidney injury requiring MANAGER SECONDARY. Palliative care was consulted for assistance with goals of care and to determine healthcare surrogate decision maker. Patient remains in ICU. Orally intubated on mechanical ventilation. On CPAP trials for 3-4 hours yesterday, CPAP trials this morning. Patient with episodes of emesis and high tube feeding residuals. KUB this morning suggesting ileus versus partial small bowel obstruction. GI has been consulted. Tube feedings on hold at this time. Patient underwent hemodialysis yesterday, 2.5 L removed. Max temperature 100.2 this morning, stable hemodynamically. FiO2 35%, oxygen saturation in the high 90s. Laboratory workup revealing WBC 12.1, Hgb 7.9, platelet count 347. Sodium 133, potassium 3.9, BUN/creatinine 51/5.35. Received telephone call from patient's mother Oxana Seals. Medical update provided. Mother and sister Yuli visit earlier today. Reviewed that and GI has been consulted to evaluate for possible ileus. . Family/friend interactions See interval note. . Advance Directives Living Will: Never completed Health Care Surrogate: Copy in medical record Durable Power of Crm Coordinator: Never completed Advance Directive Specifics Date completed: 04/29/17. . Health Care Surrogate(s): [facility] [place]/mother Oxana Seals. Alternate surrogate -sister France Garcia. . Documented care wishes: No living will completed. . Significant change in goals: Full code. Continue aggressive management. . Objective Vital Signs Date Time Temp Pulse Resp B/P Pulse Ox O2 Delivery O2 Flow Rate FiO2 05/08/17 14:00 81 05/08/17 12:00 95 05/08/17 12:00 99.2 95 14 150/74 100 05/08/17 12:00 35 05/08/17 11:59 98 40 05/08/17 11:35 14 05/08/17 10:00 92 05/08/17 08:00 100.2 91 14 145/74 94 05/08/17 08:00 91 05/08/17 08:00 35 05/08/17 07:52 96 35 05/08/17 07:52 95 Ventilator 35 05/08/17 06:00 91 05/08/17 04:00 98.9 91 16 133/77 100 05/08/17 04:00 92 05/08/17 04:00 35 05/08/17 03:21 100 35 05/08/17 02:00 94 05/08/17 00:32 95 35 05/08/17 00:00 96 05/08/17 00:00 98.9 96 20 154/79 100 05/08/17 00:00 35 05/07/17 22:00 85 05/07/17 20:25 97 35 05/07/17 20:00 35 05/07/17 20:00 99.1 86 17 135/67 95 05/07/17 20:00 86 05/07/17 18:00 85 05/07/17 16:47 97 35 05/07/17 16:00 35 05/07/17 16:00 85 05/07/17 16:00 98.2 87 22 109/56 96 Intake & Output 05/08/17 05/08/17 07:00 19:00 Intake Total 1312 ml 255 ml Output Total 760 ml 900 ml Balance 552 ml -645 ml IV Total 512 ml 255 ml Tube Feeding 0 ml Tube Irrigant 800 ml Output Urine Total 110 ml 150 ml Stool Total 0 ml Gastric Drainage Total 650 ml 750 ml # Bowel Movements 0 0 Physical Exam CONSTITUTIONAL/GENERAL: This is an adequately nourished male in no acute distress. Orally intubated on mechanical ventilation. TUBES/LINES/DRAINS: ETT, OG, Mediport right chest, PIV's, Singh catheter, SCDs, soft wrist restraints. SKIN: No jaundice, rashes, or lesions. Ecchymoses on upper extremities. No wounds seen anteriorly. Not diaphoretic. HEAD: Atraumatic. Normocephalic. EYES: Pupils equal and round and reactive. No scleral icterus. No injection or drainage. ENT: Unable to evaluate hearing secondary to clinical condition, intubated. Nose without bleeding or purulent drainage. Moist oral mucosa. Poor dentition. NECK: Trachea midline. Supple, nontender. CARDIOVASCULAR: Regular rate and rhythm without murmurs, gallops, or rubs. Peripheral pulses symmetric. RESPIRATORY/CHEST: Symmetric, coarse breath sounds bilaterally. Orally intubated on mechanical ventilation. GASTROINTESTINAL: Abdomen distended, round. Hypoactive bowel sounds present. GENITOURINARY: Without palpable bladder distension. MUSCULOSKELETAL: Extremities without clubbing, cyanosis. Edema to bilateral hands. No mottling or clubbing. NEUROLOGICAL: Sedated. Unresponsive to tactile stimuli. PSYCHIATRIC: Unable to evaluate secondary to clinical condition. Appears calm. . Diagnostic Tests Laboratory Laboratory Tests Test 05/05/17 05/05/17 05/05/17 05/06/17 14:55 19:10 22:00 04:00 Activated Partial 80.7 SEC 57.4 SEC 52.5 SEC Thromboplast Time (24.3-30.1) (24.3-30.1) (24.3-30.1) Urine Eosinophils NONE SEEN /HPF (NONE SEEN) Urine Osmolality 273 MOSM/KG (300-1300) Urine Random Sodium 8 MEQ/L White Blood Count 6.5 TH/MM3 (4.0-11.0) Red Blood Count 2.87 MIL/MM3 (4.50-5.90) Hemoglobin 8.4 GM/DL (13.0-17.0) Hematocrit 24.2 % (39.0-51.0) Mean Corpuscular Volume 84.6 FL (80.0-100.0) Mean Corpuscular Hemoglobin 29.2 PG (27.0-34.0) Mean Corpuscular Hemoglobin 34.5 % Concent (32.0-36.0) Red Cell Distribution Width 16.7 % (11.6-17.2) Platelet Count 251 TH/MM3 (150-450) Mean Platelet Volume 7.0 FL (7.0-11.0) Sodium Level 132 MEQ/L (136-145) Potassium Level 4.7 MEQ/L (3.5-5.1) Chloride Level 96 MEQ/L (98-107) Carbon Dioxide Level 21.1 MEQ/L (21.0-32.0) Anion Gap 15 MEQ/L (5-15) Blood Urea Nitrogen 73 MG/DL (7-18) Creatinine 5.84 MG/DL (0.60-1.30) Estimat Glomerular Filtration 13 ML/MIN (>89) Rate Random Glucose 112 MG/DL (74-106) Uric Acid 6.9 MG/DL (2.6-7.2) Calcium Level 7.8 MG/DL (8.5-10.1) Phosphorus Level 4.4 MG/DL (2.5-4.9) Magnesium Level 2.3 MG/DL (1.5-2.5) Lactate Dehydrogenase 458 U/L (87-241) Test 05/06/17 05/07/17 05/08/17 05/08/17 06:05 04:24 04:45 04:47 Blood Gas Puncture Site LT RADIAL Blood Gas Patient Temperature 98.6 Blood Gas HCO3 20 mmol/L (22-26) Blood Gas Base Excess -4.8 mmol/L (-2-2) Blood Gas Oxygen Saturation 96 % (90-100) Arterial Blood pH 7.33 (7.380-7.420) Arterial Blood Partial 39 mmHg (38-42) Pressure CO2 Arterial Blood Partial 123 mmHg Pressure O2 (61-120) Arterial Blood Oxygen Content 13.0 Vol % (12.0-20.0) Arterial Blood 1.1 % (0-4) Carboxyhemoglobin Arterial Blood Methemoglobin 1.4 % (0-2) Blood Gas Hemoglobin 9.5 G/DL (12.0-16.0) Oxygen Delivery Device VENTILATOR Blood Gas Ventilator Setting AC/RR14/VT500/PEEP7 Blood Gas Inspired Oxygen 40 % White Blood Count 10.7 TH/MM3 12.1 TH/MM3 (4.0-11.0) (4.0-11.0) Red Blood Count 2.83 MIL/MM3 2.75 MIL/MM3 (4.50-5.90) (4.50-5.90) Hemoglobin 8.5 GM/DL 7.9 GM/DL (13.0-17.0) (13.0-17.0) Hematocrit 23.7 % 23.1 % (39.0-51.0) (39.0-51.0) Mean Corpuscular Volume 83.6 FL 84.1 FL (80.0-100.0) (80.0-100.0) Mean Corpuscular Hemoglobin 30.0 PG 28.6 PG (27.0-34.0) (27.0-34.0) Mean Corpuscular Hemoglobin 35.9 % 34.0 % Concent (32.0-36.0) (32.0-36.0) Red Cell Distribution Width 16.3 % 16.5 % (11.6-17.2) (11.6-17.2) Platelet Count 284 TH/MM3 347 TH/MM3 (150-450) (150-450) Mean Platelet Volume 7.7 FL 7.1 FL (7.0-11.0) (7.0-11.0) Activated Partial 45.7 SEC 40.3 SEC Thromboplast Time (24.3-30.1) (24.3-30.1) Sodium Level 130 MEQ/L 133 MEQ/L (136-145) (136-145) Potassium Level 4.8 MEQ/L 3.9 MEQ/L (3.5-5.1) (3.5-5.1) Chloride Level 94 MEQ/L 91 MEQ/L (98-107) (98-107) Carbon Dioxide Level 22.6 MEQ/L 27.9 MEQ/L (21.0-32.0) (21.0-32.0) Anion Gap 13 MEQ/L (5-15) 14 MEQ/L (5-15) Blood Urea Nitrogen 64 MG/DL (7-18) 51 MG/DL (7-18) Creatinine 5.40 MG/DL 5.35 MG/DL (0.60-1.30) (0.60-1.30) Estimat Glomerular Filtration 14 ML/MIN (>89) 14 ML/MIN (>89) Rate Random Glucose 121 MG/DL 95 MG/DL (74-106) (74-106) Uric Acid 5.8 MG/DL 5.9 MG/DL (2.6-7.2) (2.6-7.2) Calcium Level 8.4 MG/DL 9.1 MG/DL (8.5-10.1) (8.5-10.1) Phosphorus Level 4.2 MG/DL 6.0 MG/DL (2.5-4.9) (2.5-4.9) Magnesium Level 2.2 MG/DL 2.4 MG/DL (1.5-2.5) (1.5-2.5) Lactate Dehydrogenase 466 U/L 383 U/L (87-241) (87-241) Ammonia LESS THAN 10 MCMOL/L (11-32) Test 05/08/17 05:02 Blood Gas Puncture Site LT RADIAL Blood Gas Patient Temperature 98.6 Blood Gas HCO3 27 mmol/L (22-26) Blood Gas Base Excess 3.8 mmol/L (-2-2) Blood Gas Oxygen Saturation 95 % (90-100) Arterial Blood pH 7.50 (7.380-7.420) Arterial Blood Partial 35 mmHg (38-42) Pressure CO2 Arterial Blood Partial 97 mmHg Pressure O2 (61-120) Arterial Blood Oxygen Content 14.8 Vol % (12.0-20.0) Arterial Blood 1.4 % (0-4) Carboxyhemoglobin Arterial Blood Methemoglobin 1.4 % (0-2) Blood Gas Hemoglobin 11.0 G/DL (12.0-16.0) Oxygen Delivery Device VENTILATOR Blood Gas Ventilator Setting AC500/14/+7 Blood Gas Inspired Oxygen 35 % Result Diagram: 05/08/17 0445 05/08/17 0445 Procedures * 05/06/17 -Left internal jugular Vas-Cath placement * 05/02/17 -intubation * 04/22/17 -axillary lymph node biopsy * 04/27/17 -bone marrow biopsy * 04/28/17 -MediPort placement . Assessment and Plan Disease Oriented Problem List: (1) Non-Hodgkin lymphoma (2) Acute pancreatitis (3) ALDO (acute kidney injury) Symptom Scale: (1) Shortness of breath 0-10 Scale: Unable to quantify Comment: Bilateral pleural effusions/acute hypoxemic respiratory failure. Orally intubated on mechanical ventilation. (2) Debility 0-10 Scale: Unable to quantify Pertinent Non-Medical Issues Psychosocial: Single, unemployed. Has 8 children. Highest level of education is eighth grade. No service. Spiritual: No zoroastrianism affiliations. Legal: Designation of healthcare surrogate completed. Ethical issues impacting care: No ethical issues identified. Patient participating in medical decision-making. . Important Contacts HCS/mother Nu Seals . Alt HCS/sister France Garcia . . Prognosis Mr. Werner is a 47-year-old male with no significant medical history, recently diagnosed with with aggressive CD10 positive B-cell non-Hodgkin lymphoma. Clinical course complicated by PE status post TPA, cardiogenic shock, acute hypoxemic respiratory failure requiring intubation and mechanical ventilation and worsening acute kidney injury. Patient at a very high risk for sudden cardiac and additional complications. Prognosis is guarded. . Code Status: Full Code Plan * CODE STATUS: FULL code. * HEALTHCARE DECISION-MAKING: Patient unable to participate in medical decision- making secondary to clinical condition, orally intubated on mechanical ventilation -Sedated. Designation of healthcare surrogate completed, patient designated his mother Oxana Seals as HCS and alt HCS sister France Garcia. * GOALS OF CARE: pt's mother acting as HCS, electing to continue aggressive management to include full code. Family receptive to palliative care f/u for medical updates and emotional support. * SYMPTOMS: = Shortness of breath, secondary to bilateral pleural effusions/ acute hypoxemic respiratory failure. Currently intubated on mechanical ventilation. Ongoing CPAP trials. Pulmonology following. = Debility, secondary to burden of disease, acute illness, prolonged hospitalization. Will likely require rehabilitation upon discharge. * Spiritual services following for family support. * Palliative care contact information has been provided to family. * Palliative care will continue to follow-up as needed for further clarifications of goals of care, provide emotional support as patient's clinical course continues to evolve. . Time Spent Total Floor Time (mins): 28 (Total time to include review medical records, physical exam, telephone conversation with patient's mother for medical update.) >50% Counseling/Coord of Care: Yes Attestation To help prompt me to consider important information that might be impacting today's encounter and assessment, information from prior notes written by myself or my colleagues may have been "brought forward" into today's note. My signature on this note, however, is an attestation that I personally performed the exam, history, and/or decision-making noted today, and, unless otherwise indicated, the interactions with patient, family, and staff as well as the review of records all occurred today. I also attest that the listed assessment and stated plan reflect my best clinical judgment today based on the combination of historical information, prior notes, and today's exam/ interactions. When time spent is documented, it refers only to time spent today by the signer, or if indicated, combined time spent today by collaborating physician/nurse practitioner. Demetrice Brody May 08, 2017 14:57
--- NOTE | 2017-05-08 19:35 | HHI.PR ---
Subjective Remarks Remains Sedated Vent dependant . On PEEP 5 and FIo2 35 %. On heparin . Chest X ray shows bilateral basal infiltrates Objective Vital Signs Date Time Temp Pulse Resp B/P Pulse Ox O2 Delivery O2 Flow Rate FiO2 05/08/17 18:00 87 05/08/17 16:00 80 05/08/17 16:00 35 05/08/17 16:00 98.5 80 14 112/64 100 05/08/17 14:00 81 05/08/17 12:00 95 05/08/17 12:00 99.2 95 14 150/74 100 05/08/17 12:00 35 05/08/17 11:59 98 40 05/08/17 11:35 14 05/08/17 10:00 92 05/08/17 08:00 100.2 91 14 145/74 94 05/08/17 08:00 91 05/08/17 08:00 35 05/08/17 07:52 96 35 05/08/17 07:52 95 Ventilator 35 05/08/17 06:00 91 05/08/17 04:00 98.9 91 16 133/77 100 05/08/17 04:00 92 05/08/17 04:00 35 05/08/17 03:21 100 35 05/08/17 02:00 94 05/08/17 00:32 95 35 05/08/17 00:00 96 05/08/17 00:00 98.9 96 20 154/79 100 05/08/17 00:00 35 05/07/17 22:00 85 05/07/17 20:25 97 35 05/07/17 20:00 35 05/07/17 20:00 99.1 86 17 135/67 95 05/07/17 20:00 86 I/O 05/07/17 05/07/17 05/07/17 05/08/17 05/08/17 05/08/17 07:00 15:00 23:00 07:00 15:00 23:00 Intake Total 861 ml 226 ml 238 ml 1074 ml 255 ml Output Total 1075 ml 1450 ml 3185 ml 75 ml 900 ml Balance -214 ml -1224 ml -2947 ml 999 ml -645 ml IV Total 403 ml 226 ml 238 ml 274 ml 255 ml Tube Feeding 458 ml 0 ml 0 ml Tube Irrigant 800 ml Output Urine Total 75 ml 150 ml 35 ml 75 ml 150 ml Stool Total 0 ml Gastric Drainage Total 1300 ml 650 ml 750 ml Emesis 1000 ml Hemodialysis 2500 ml # Bowel Movements 0 0 0 Result Diagram: 05/08/1744405/08/17444 Objective Remarks GENERAL: This is a well-nourished, well-developed patient,intubated and on Vent support. HEENT: ET tube in. Throat clear. CARDIOVASCULAR: Regular rate and rhythm without murmurs, gallops, or rubs. RESPIRATORY: Diffuse expiratory wheezes, Occ Crackles at Bases.diminished breath sounds bilaterally. GASTROINTESTINAL: Abdomen soft, non-tender,nondistended. + bowel sounds MUSCULOSKELETAL: Extremities show 1 + edema. NEURO: Sedated. Assessment and Plan Assessment and Plan ASSESSMENT 1. Acute kidney injury. 2. Respiratory failure. 3. Pulmonary embolism. 4. Non-Hodgkin's lymphoma. 5. Anemia. 6. Hyperphosphatemia. Plan : 1. Wean FIo2 to 30 % and PEEP to keep sat >92. 2. Nebs qid , duoneb 3. Anticoagulation as Ordered/Heparin 4. CXR BMP in am 5. Tube feeds at 60 CC 6. CPAP trial daily 7. Continue Dialysis as planned. 8. Cont antibiotics. Con Pierre MD May 08, 2017 19:34
--- NOTE | 2017-05-08 21:13 | HHI.NPPN ---
Subjective History of Present Illness 47-year-old male with no known past medical history who came to the hospital with complaint of nausea, vomiting and abdominal pain on April 18. I was called to see the patient because of elevated BUN and creatinine. The patient had a creatinine of 1.3 on presentation which improved to 0.7 and 0.8, then started increasing for last few days. Additional Remarks Patient remain intubated and sedated. Objective Data Data 05/07/17 05/08/17 19:00 07:00 Intake Total 226 ml 1312 ml Output Total 3950 ml 760 ml Balance -3724 ml 552 ml IV Total 226 ml 512 ml Tube Feeding 0 ml Tube Irrigant 800 ml Output Urine Total 150 ml 110 ml Stool Total 0 ml Gastric Drainage Total 1300 ml 650 ml Hemodialysis 2500 ml # Bowel Movements 0 0 Vital Signs Date Time Temp Pulse Resp B/P Pulse Ox O2 Delivery O2 Flow Rate FiO2 05/08/17 20:06 97 40 05/08/17 18:00 87 05/08/17 16:00 80 05/08/17 16:00 35 05/08/17 16:00 98.5 80 14 112/64 100 05/08/17 14:00 81 05/08/17 12:00 95 05/08/17 12:00 99.2 95 14 150/74 100 05/08/17 12:00 35 05/08/17 11:59 98 40 05/08/17 11:35 14 05/08/17 10:00 92 05/08/17 08:00 100.2 91 14 145/74 94 05/08/17 08:00 91 05/08/17 08:00 35 05/08/17 07:52 96 35 05/08/17 07:52 95 Ventilator 35 05/08/17 06:00 91 05/08/17 04:00 98.9 91 16 133/77 100 05/08/17 04:00 92 05/08/17 04:00 35 05/08/17 03:21 100 35 05/08/17 02:00 94 05/08/17 00:32 95 35 05/08/17 00:00 96 05/08/17 00:00 98.9 96 20 154/79 100 05/08/17 00:00 35 05/07/17 22:00 85 -: 05/08/17 0445 05/08/17 0445 Physical Exam General Appearance Remarks Intubated and sedated. Eyes Eye Exam: Pupils Equal Throat Throat Exam: Oral Mucosa [place] & Moist Pulmonary Resp Exam: Crackles, Rhonchi, Decreased Bases, Diminished Breath Sounds, Poor Inspiratory Effort Cardiology CV Exam: Regular, Normal Sinus Rhythm Gastrointestinal/Abdomen GI Exam: Soft, Non-Tender, Bowel Sounds Present, Distended Extremeties Extremities Exam: Trace Edema Neurologic Neuro Exam: Sedated Assessment/Plan Assessment Summary: ALDO/Acute Renal Failure Problem List: (1) Non-Hodgkin lymphoma (2) Adenopathy (3) Pleural effusion (4) Shortness of breath (5) Pulmonary emboli (6) Acute pancreatitis (7) ALDO (acute kidney injury) Plan Patient has minimal urine out put. Urine Na. was low, and Eosinophils negative. Creatinine remain elevated. Started on HD after the Vascath on 05/06. Urine out put remain minimal. HD in AM, palliative care following. Problem Qualifiers (1) Non-Hodgkin lymphoma: (2) Acute pancreatitis: Qualified Code: K85.20 - Alcohol-induced acute pancreatitis, unspecified complication status Leonid Haley MD May 08, 2017 21:13
[2017-05-09] VITALS (20 sets, daily range): BP systolic 104–136; BP diastolic 56–74; PULSE 83–93; RESP 14–22; TEMP 97.5–99.6; O2SAT 95–100
[2017-05-09] MEDS: ARTIFICIAL TEARS OPTH OINT 3.5 APPLIC/3.5 GM TUBO EACH EYE SCH ×3 (02:16→16:42)
[2017-05-09] MEDS: PROPOFOL 1000 MG/100 ML INJ 100 ML IV SCH ×4 (02:23→23:57)
--- NOTE | 2017-05-09 05:31 | RADRPT ---
EXAM DATE/TIME: 05/09/2017 03:15 [facility] COMPARISON: CHEST SINGLE AP, May 06, 2017, 12:00. INDICATIONS : Evaluate for infiltrate, Respiratory failure. MEDICAL HISTORY : Pancreatitis, Lymphoma SURGICAL HISTORY : None. ENCOUNTER: Subsequent ACUITY: 2 weeks PAIN SCORE: Non-responsive. LOCATION: Bilateral chest FINDINGS: A single view of the chest demonstrates the endotracheal tube, left IJ Vas-Cath and right-sided Infus e-a-Port catheter are in good position. There are moderate bilateral pleural effusions. Diffuse perih ilar vascular congestion. Osseous structures are intact. CONCLUSION: Perihilar vascular congestion with pleural effusions left greater than right. Tubes and catheters ar e in good position. Stable widening of the right paratracheal stripe Rinku Hillman MD on May 09, 2017 at 5:29 Board Certified Radiologist. This report was verified electronically.
[2017-05-09 05:48] LABS: APTT (PATIENT) 37.2 SEC (24.3-30.1)
[2017-05-09 05:53] LABS: MEAN CELL VOLUME 83.4 FL (80.0-100.0); MEAN CORPUSCULAR HEMOGLOBIN 29.8 PG (27.0-34.0); MEAN CORPUSCULAR HGB CONC 35.8 % (32.0-36.0); PLATELET COUNT 417 TH/MM3 (150-450); RED BLOOD COUNT 2.76 MIL/MM3 (4.50-5.90); RED CELL DISTRIBUTION WIDTH 16.6 % (11.6-17.2); REVIEW FLAG FINAL; WHITE BLOOD COUNT 10.2 TH/MM3 (4.0-11.0)
[2017-05-09] MEDS: INSULIN NovoLIN REGULAR SUPPLEMENTAL SCALE SQ SCH ×4 (06:00→17:59)
[2017-05-09 06:01] LABS: BICARBONATE 27.8 MEQ/L (21.0-32.0); POTASSIUM 3.6 MEQ/L (3.5-5.1)
[2017-05-09] MEDS: HEPARIN-D5W 25,000 U/250 ML 250 ML IV SCH (06:09)
[2017-05-09] MEDS: CHLORHEXIDINE 0.12% (ORAL KIT) 15 ML CUP MT SCH ×2 (08:01→20:00)
[2017-05-09] MEDS: DOCUSATE SODIUM 50 MG/SENNA 8.6 MG TAB PO SCH ×2 (08:01→21:43)
[2017-05-09] MEDS: LACTULOSE SYRUP 20 GM/30 ML CUP PO SCH ×2 (08:01→21:43)
[2017-05-09] MEDS: POLYETHYLENE GLYCOL 17 GM PKG PO SCH (08:01)
[2017-05-09] MEDS: CALCIUM ACETATE 667 MG CAP PO SCH ×3 (08:01→16:42)
[2017-05-09] MEDS: ALLOPURINOL 100 MG TAB PO SCH (08:01)
[2017-05-09] MEDS: PANTOPRAZOLE SODIUM 40 MG VIAL IV PUSH SCH (08:02)
[2017-05-09] MEDS: NIFEdipine 90 MG SUSTAINED RELEASE TAB PO SCH (08:02)
[2017-05-09 11:20] LABS: APTT (PATIENT) 37.9 SEC (24.3-30.1)
[2017-05-09] MEDS: fentaNYL DRIP 250 ML IV SCH (12:32)
--- NOTE | 2017-05-09 12:47 | HHI.NPPN ---
Subjective History of Present Illness 47-year-old male with no known past medical history who came to the hospital with complaint of nausea, vomiting and abdominal pain on April 18. I was called to see the patient because of elevated BUN and creatinine. The patient had a creatinine of 1.3 on presentation which improved to 0.7 and 0.8, then started increasing for last few days. Additional Remarks Patient remain intubated and sedated. Objective Data Data 05/08/17 05/09/17 19:00 07:00 Intake Total 255 ml 647 ml Output Total 900 ml 150 ml Balance -645 ml 497 ml IV Total 255 ml 527 ml Tube Feeding 0 ml Other 120 ml Output Urine Total 150 ml 150 ml Gastric Drainage Total 750 ml # Bowel Movements 0 0 Vital Signs Date Time Temp Pulse Resp B/P Pulse Ox O2 Delivery O2 Flow Rate FiO2 05/09/17 12:00 40 05/09/17 12:00 83 05/09/17 12:00 99.2 83 14 115/72 100 05/09/17 10:31 40 05/09/17 10:31 100 40 05/09/17 10:00 85 05/09/17 08:00 99.4 87 14 136/61 99 05/09/17 08:00 87 05/09/17 08:00 35 05/09/17 07:20 98 40 05/09/17 06:00 93 05/09/17 04:00 35 05/09/17 04:00 84 05/09/17 04:00 98.3 84 16 135/74 100 05/09/17 03:53 100 40 05/09/17 02:00 84 05/09/17 00:47 100 40 05/09/17 00:00 85 05/09/17 00:00 97.5 85 22 113/69 100 05/09/17 00:00 35 05/08/17 22:00 84 05/08/17 20:06 97 40 05/08/17 20:00 85 05/08/17 20:00 97.5 85 17 128/77 100 05/08/17 20:00 35 05/08/17 18:00 87 05/08/17 16:00 80 05/08/17 16:00 35 05/08/17 16:00 98.5 80 14 112/64 100 05/08/17 14:00 81 -: 05/09/17 0500 05/09/17 0500 Physical Exam Eyes Eye Exam: Pupils Equal Throat Throat Exam: Oral Mucosa [place] & Moist Pulmonary Resp Exam: Crackles, Rhonchi, Decreased Bases, Diminished Breath Sounds, Poor Inspiratory Effort Cardiology CV Exam: Regular, Normal Sinus Rhythm Gastrointestinal/Abdomen GI Exam: Soft, Non-Tender, Bowel Sounds Present, Distended Extremeties Extremities Exam: Trace Edema Neurologic Neuro Exam: Sedated Assessment/Plan Assessment Summary: ALDO/Acute Renal Failure Problem List: (1) Non-Hodgkin lymphoma (2) Adenopathy (3) Pleural effusion (4) Shortness of breath (5) Pulmonary emboli (6) Acute pancreatitis (7) ALDO (acute kidney injury) Plan Patient has minimal urine out put. Urine Na. was low, and Eosinophils negative. Urine out put remain minimal. HD proceeding noted UF 1.5 L seen during HD, palliative care following. Problem Qualifiers (1) Non-Hodgkin lymphoma: (2) Acute pancreatitis: Qualified Code: K85.20 - Alcohol-induced acute pancreatitis, unspecified complication status Harriet Stinson MD May 09, 2017 12:46
--- NOTE | 2017-05-09 13:26 | HHI.GIFU ---
Subjective Remarks patient is sedated on a vent. doing dialysis. Still with significant amount of gastric output from OGT. According to nurse, patient was given a complete bowel regimen that consists of lactulose, miralax, senna, Colace pulse 2 SSE without any results (Moises Mariee) Objective Vitals I&O Vital Signs Date Time Temp Pulse Resp B/P Pulse Ox O2 Delivery O2 Flow Rate FiO2 05/09/17 12:00 40 05/09/17 12:00 83 05/09/17 12:00 99.2 83 14 115/72 100 05/09/17 10:31 40 05/09/17 10:31 100 40 05/09/17 10:00 85 05/09/17 08:00 99.4 87 14 136/61 99 05/09/17 08:00 87 05/09/17 08:00 35 05/09/17 07:20 98 40 05/09/17 06:00 93 05/09/17 04:00 35 05/09/17 04:00 84 05/09/17 04:00 98.3 84 16 135/74 100 05/09/17 03:53 100 40 05/09/17 02:00 84 05/09/17 00:47 100 40 05/09/17 00:00 85 05/09/17 00:00 97.5 85 22 113/69 100 05/09/17 00:00 35 05/08/17 22:00 84 05/08/17 20:06 97 40 05/08/17 20:00 85 05/08/17 20:00 97.5 85 17 128/77 100 05/08/17 20:00 35 05/08/17 18:00 87 05/08/17 16:00 80 05/08/17 16:00 35 05/08/17 16:00 98.5 80 14 112/64 100 05/08/17 14:00 81 I/O 05/08/17 05/08/17 05/08/17 05/09/17 05/09/17 05/09/17 07:00 15:00 23:00 07:00 15:00 23:00 Intake Total 1074 ml 255 ml 373 ml 274 ml Output Total 75 ml 900 ml 100 ml 50 ml Balance 999 ml -645 ml 273 ml 224 ml IV Total 274 ml 255 ml 253 ml 274 ml Tube Feeding 0 ml 0 ml Tube Irrigant 800 ml Other 120 ml Output Urine Total 75 ml 150 ml 100 ml 50 ml Gastric Drainage Total 750 ml # Bowel Movements 0 0 0 0 Laboratory Laboratory Tests Test 05/09/17 05/09/17 05:00 10:25 White Blood Count 10.2 Red Blood Count 2.76 Hemoglobin 8.2 Hematocrit 23.0 Mean Corpuscular Volume 83.4 Mean Corpuscular Hemoglobin 29.8 Mean Corpuscular Hemoglobin 35.8 Concent Red Cell Distribution Width 16.6 Platelet Count 417 Mean Platelet Volume 7.6 Activated Partial 37.2 37.9 Thromboplast Time Sodium Level 133 Potassium Level 3.6 Chloride Level 88 Carbon Dioxide Level 27.8 Anion Gap 17 Blood Urea Nitrogen 59 Creatinine 6.76 Estimat Glomerular Filtration 11 Rate Random Glucose 83 Calcium Level 8.9 Imaging Last Impressions Chest X-Ray 05/09/17 0600 Signed Impressions: Service Date/Time: Tuesday, May 09, 2017 03:15 - CONCLUSION: Perihilar vascular congestion with pleural effusions left greater than right. Tubes and catheters are in good position. Stable widening of the right paratracheal stripe Rinku Hillman MD Abdomen X-Ray 05/08/17 0000 Signed Impressions: Service Date/Time: Monday, May 08, 2017 07:04 - CONCLUSION: 1. Air-filled mildly dilated loops of small bowel suggesting ileus or partial small bowel obstruction. Clinical correlation is commended. Fidel Isaac MD Renal Ultrasound 05/05/17 0000 Signed Impressions: Service Date/Time: Friday, May 05, 2017 20:06 - CONCLUSION: 1. Kidneys are borderline echogenic which can be seen with medical renal disease. 2. No evidence of hydronephrosis. 3. Abdominal ascites. 4. Multiple dilated bowel loops. 5. Bilateral pleural effusions. Tray Patel MD Head CT 05/03/17 0000 Signed Impressions: Service Date/Time: Wednesday, May 03, 2017 17:22 - CONCLUSION: No acute intracranial disease. No hemorrhage seen. Tray Patel MD CT Angiography 05/02/17 0000 Signed Impressions: Service Date/Time: Tuesday, May 02, 2017 11:10 - CONCLUSION: 1. There is pulmonary embolus in the right pulmonary artery, right upper lobe and lower lobe branches. 2. Resorption of previously seen gas in the left axilla with fluid collection at this site with postprocedural change and possibly postprocedural hemorrhage not significantly changed in size. 3. Interval development of right lung airspace process may represent postobstructive pneumonia and there is mucus within the trachea not present yesterday. 4. Right pleural effusion is smaller and left pleural effusion is larger. 5. No change in bulky adenopathy. Leonor Chavez MD Upper Extremity Ultrasound 04/30/17 0000 Signed Impressions: Service Date/Time: April 12:25 - CONCLUSION: There some superficial thrombosis of a vein in the forearm. The deep venous system is patent. Large fluid collection left axilla. Significant soft tissue edema throughout the upper arm. Rinku Hillman MD Thoracentesis Ultrasound 04/30/17 0000 Signed Impressions: Service Date/Time: April 12:14 - CONCLUSION: Uncomplicated ultrasound guided thoracentesis. Tray Patel MD Port Line Insertion 04/27/17 0000 Signed Impressions: Service Date/Time: Thursday, April 27, 2017 14:56 - CONCLUSION: 1. Bulky bilateral lower cervical lymphadenopathy. 2. Uncomplicated ultrasound and fluoroscopic guided implanted central venous port catheter placement as described in detail above. An 8 Yi Power port was placed. Liang Peralta MD Bone Biopsy CT 04/27/17 0000 Signed Impressions: Service Date/Time: Thursday, April 27, 2017 16:22 - CONCLUSION: 1. Uncomplicated CT guided bone marrow aspirate. 2. Uncomplicated CT guided bone marrow biopsy. Tray Paetl MD Chest CT 04/25/17 0000 Signed Impressions: Service Date/Time: Wednesday, April 26, 2017 19:00 - CONCLUSION: The right pleural effusion is slightly larger on the left side has not changed. Extensive bulky adenopathy as before and malignancies such as lymphoma is suspected. Leonor Chavez MD Gall Bladder Ultrasound 04/22/17 0000 Signed Impressions: Service Date/Time: Saturday, April 22, 2017 07:35 - CONCLUSION: Small liver with focal abdomen only incompletely evaluated. Large right pleural effusion. effusion. Kirk Briceño MD FACR Abdomen CT 04/20/17 0000 Signed Impressions: Service Date/Time: Thursday, April 20, 2017 19:40 - CONCLUSION: Limited exam because of lack of intravenous contrast. Lymphoma is suspected. Pathological diagnosis could be obtained with ultrasound biopsy of the cervical, axillary or inguinal adenopathy. Kirk Briceño MD FACR Physical Exam HEENT: normocephalic; atraumatic; no jaundice. CHEST: coarse, rhonchi CARDIAC: Irregular HR ABDOMEN: firm, distended, nontender; no hepatosplenomegaly; bowel sounds are hypoactive EXTREMITIES: Gen. edema SKIN: Normal; no rash; no jaundice. FIELD STAFF: Sedate on a vent (Moises Mariee) Assessment and Plan Plan ASSESSMENT - abd distention, emesis - PSBO vs ileus. Still with significant brownish greenish material with sediments from OGT According to nurse, patient was given a complete bowel regimen that consists of lactulose, miralax, senna, Colace pulse 2 SSE without any results KUB 05-08-17 -->Air-filled mildly dilated loops of small bowel suggesting ileus or partial small bowel obstruction. was on reglan which is now being held. Had lactulose, miralax, suppositories. - acute hypoxic respiratory failure, PE, ALDO on HD, b cell lymphoma - per [facility] PLAN - CT w/o Iv contrast after dialysis - S/P 2 SSE - He is on bowel regimen, but no results - NPO - OGT to LIWS - further recommendations to follow This pt seen by myself and Dr Richey and this note is written on his behalf ( Moises Mariee) Physician Comments Patient seen and examined Agree with above Continue with current supportive care Monitor labs Await CT of the abdomen (Manuel Richey MD) Moises Mariee May 09, 2017 13:26 Manuel Richey MD May 09, 2017 18:33
[2017-05-09] MEDS: GENTAMICIN SULFATE (DIALYSIS USE ONLY) 20 MG/2 ML VIAL OTHER PRN (13:28)
[2017-05-09] MEDS: SODIUM CHLOR 0.9% 1000 ML IV PRN (13:29)
[2017-05-09] MEDS ORDERED: DIATRIZOATE MEGLUM/DIATRIZOATE SOD 9 ML CUP PO ONE (14:15)
--- NOTE | 2017-05-09 14:21 | PD.ONC.PN ---
Subjective Subjective Remarks Afebrile overnight Pt resting in bed sedated and mechanically ventilated Currently getting HD Per RN there have been no issues Objective Data Date Time Temp Pulse Resp B/P Pulse Ox O2 Delivery O2 Flow Rate FiO2 05/09/17 14:06 100 40 05/09/17 12:00 40 05/09/17 12:00 83 05/09/17 12:00 99.2 83 14 115/72 100 05/09/17 10:31 40 05/09/17 10:31 100 40 05/09/17 10:00 85 05/09/17 08:00 99.4 87 14 136/61 99 05/09/17 08:00 87 05/09/17 08:00 35 05/09/17 07:20 98 40 05/09/17 06:00 93 05/09/17 04:00 35 05/09/17 04:00 84 05/09/17 04:00 98.3 84 16 135/74 100 05/09/17 03:53 100 40 05/09/17 02:00 84 05/09/17 00:47 100 40 05/09/17 00:00 85 05/09/17 00:00 97.5 85 22 113/69 100 05/09/17 00:00 35 05/08/17 22:00 84 05/08/17 20:06 97 40 05/08/17 20:00 85 05/08/17 20:00 97.5 85 17 128/77 100 05/08/17 20:00 35 05/08/17 18:00 87 05/08/17 16:00 80 05/08/17 16:00 35 05/08/17 16:00 98.5 80 14 112/64 100 Result Diagram: 05/09/17 0500 05/09/17 0500 Laboratory Results Laboratory Tests Test 05/09/17 05/09/17 05:00 10:25 White Blood Count 10.2 TH/MM3 Red Blood Count 2.76 MIL/MM3 Hemoglobin 8.2 GM/DL Hematocrit 23.0 % Mean Corpuscular Volume 83.4 FL Mean Corpuscular Hemoglobin 29.8 PG Mean Corpuscular Hemoglobin 35.8 % Concent Red Cell Distribution Width 16.6 % Platelet Count 417 TH/MM3 Mean Platelet Volume 7.6 FL Activated Partial 37.2 SEC 37.9 SEC Thromboplast Time Sodium Level 133 MEQ/L Potassium Level 3.6 MEQ/L Chloride Level 88 MEQ/L Carbon Dioxide Level 27.8 MEQ/L Anion Gap 17 MEQ/L Blood Urea Nitrogen 59 MG/DL Creatinine 6.76 MG/DL Estimat Glomerular Filtration 11 ML/MIN Rate Random Glucose 83 MG/DL Calcium Level 8.9 MG/DL Imaging Studies Last 24 hours Impressions Chest X-Ray 05/09/17 0600 Signed Impressions: Service Date/Time: Tuesday, May 09, 2017 03:15 - CONCLUSION: Perihilar vascular congestion with pleural effusions left greater than right. Tubes and catheters are in good position. Stable widening of the right paratracheal stripe Rinku Hillman MD Administered Medications Medications (Trade) Dose Ordered Sig/Shyla Route PRN Reason Start Time Stop Time Status Last Admin Dose Admin Sodium Chloride (NS Flush) 2 ml UNSCH PRN IV FLUSH FLUSH AFTER USING IV ACCESS 04/18/17 17:30 04/21/17 22:27 Senna/Docusate Sodium (Porsha-Colace) 1 tab BID PO 04/18/17 21:00 05/09/17 08:01 Magnesium Hydroxide (Milk Of Magnesia Liq) 30 ml Q12H PRN PO MILD - MODERATE CONSTIPATION 04/18/17 19:30 05/09/17 08:01 Heparin Sodium (Porcine) (Heparin Inj) 5,000 units Q8HR SQ 04/19/17 14:00 Hold 05/02/17 12:46 Hydralazine HCl (Apresoline Inj) 10 mg Q6HR PRN IV PUSH SBP>160, DBP>90 04/21/17 17:00 04/27/17 10:15 Nifedipine (Procardia Xl) 90 mg DAILY PO 04/28/17 09:00 05/06/17 08:16 Clonidine (Catapres) 0.1 mg Q6H PRN PO SBP>160, DBP>90 04/27/17 15:00 04/29/17 08:07 Ondansetron HCl (Zofran Inj) 4 mg Q6HR PRN IV PUSH NAUSEA OR VOMITING 04/30/17 11:30 05/07/17 10:06 Promethazine HCl (Phenergan Inj) 25 mg Q6H PRN IM NAUSEA OR VOMITING 04/30/17 11:30 05/01/17 13:27 Acetaminophen/ Hydrocodone Bitart ([place] 5-325 Mg) 1 tab Q6H PRN PO PAIN SCALE 1 TO 10 04/30/17 11:30 05/01/17 05:15 Metoclopramide HCl (Reglan Inj) 10 mg Q8HR IV PUSH 05/01/17 15:30 Hold 05/08/17 04:59 Insulin Human Regular (NovoLIN R SUPPLEMENTAL SCALE) 1 Q6HR SQ 05/02/17 12:00 05/04/17 18:00 Chlorhexidine Gluconate 15 ml 15 ml BID@08,20 MT 05/02/17 20:00 05/09/17 08:01 Fentanyl Citrate 250 ml @ 0 mls/hr TITRATE IV 05/02/17 10:00 05/09/17 12:32 Propofol (Diprivan 1000 Mg/100ml Inj) 100 ml @ 0 mls/hr TITRATE IV 05/02/17 10:00 05/09/17 08:02 Miscellaneous Information Patient in critical care unit? Ass... [id number] .XX 05/02/17 17:15 05/02/17 17:30 Heparin Sodium/ Dextrose (Heparin-D5W Inj) 250 ml @ 0 mls/hr TITRATE IV 05/03/17 02:00 05/09/17 06:09 Calcium Acetate (Phoslo) 2,668 mg TID PO 05/03/17 09:00 05/09/17 08:01 Allopurinol (Zyloprim) 200 mg DAILY PO 05/06/17 09:00 05/09/17 08:01 Pantoprazole Sodium (Protonix Inj) 40 mg DAILY IV PUSH 05/07/17 12:00 05/09/17 08:02 Artificial Tears 1 applic 1 applic Q8H EACH EYE 05/07/17 18:00 05/09/17 10:21 Sodium Chloride (NS 1000 ml Inj) 1,000 ml @ 0 mls/hr TITRATE PRN IV WITH DIALYSIS 05/07/17 18:00 05/09/17 13:29 Gentamicin Sulfate (Gentamicin (Dialysis) Inj) 10 mg UNSCH PRN OTHER WITH DIALYSIS 05/07/17 18:00 05/09/17 13:28 Polyethylene Glycol (Miralax) 17 gm DAILY PO 05/08/17 09:00 05/09/17 08:01 Lactulose (Lactulose Liq) 30 ml BID PO 05/08/17 09:00 05/09/17 08:01 Objective Remarks GENERAL: Intubated sedated male lying supine in hospital bed. SKIN: Warm and dry. RIJ with some dried blood noted along bandage. HEAD: Normocephalic. EYES: No injection or drainage. NECK: Supple, trachea midline. CARDIOVASCULAR: +S1/S2, tachy RESPIRATORY: Scattered rhonchi. Mechanically ventilated. GASTROINTESTINAL: Abdomen protuberant, distended. EXTREMITIES: No cyanosis. BUE extremities with edema. NEUROLOGICAL: Intubated and sedated. Assessment/Plan Problem List: (1) Pulmonary emboli Status: Acute Plan: --CTA showed large PE --s/p tpa therapy on 05.02. now on heparin gtt. (2) Non-Hodgkin lymphoma Status: Acute Plan: --remains critically ill; no further chemo until stable. Assessment 47y/o male admitted with pancreatitis, found to have NHL. Given Rituxan on 05.01 and developed massive PE on and went into cardiogenic shock with renal failure. Now critically ill in [facility] [place]. s/p thrombolytic therapy Plan 1. Continue heparin drip for pulmonary embolus 2. The patient remains critically ill and will be unable to receive further chemotherapy until a drastic improvement of his current situation. 3. We will continue to monitor his CBC. 4. Supportive care Attending Statement The exam, history, and the medical decision-making described in the above note were completed with the assistance of the mid-level provider. I reviewed and agree with the findings presented. I attest that I had a [id number] encounter with the patient on the same day, and personally performed and documented my assessment and findings in the medical record. exam shows a very ill gentleman with abd distention, diffuse adenopathy and with renal failure without improvement. we need to give chemotherapy to tx the lymphoma but this has not been possible due to acute deterioration from ? PE. will probably need to further increase heparin to bring into a therapeutic range. Situation discussed with Dr. Russell. Problem Qualifiers (1) Non-Hodgkin lymphoma: Tia Montenegro May 09, 2017 14:21 George Yen MD May 09, 2017 16:44
--- NOTE | 2017-05-09 15:25 | HHI.PR ---
Subjective Remarks Remains Sedated Vent dependant . On PEEP 5 and FIo2 40 %. On heparin . Chest X ray shows bilateral basal infiltrates. No change . Objective Vital Signs Date Time Temp Pulse Resp B/P Pulse Ox O2 Delivery O2 Flow Rate FiO2 05/09/17 14:06 100 40 05/09/17 14:00 87 05/09/17 12:00 40 05/09/17 12:00 83 05/09/17 12:00 99.2 83 14 115/72 100 05/09/17 10:31 40 05/09/17 10:31 100 40 05/09/17 10:00 85 05/09/17 08:00 99.4 87 14 136/61 99 05/09/17 08:00 87 05/09/17 08:00 35 05/09/17 07:20 98 40 05/09/17 06:00 93 05/09/17 04:00 35 05/09/17 04:00 84 05/09/17 04:00 98.3 84 16 135/74 100 05/09/17 03:53 100 40 05/09/17 02:00 84 05/09/17 00:47 100 40 05/09/17 00:00 85 05/09/17 00:00 97.5 85 22 113/69 100 05/09/17 00:00 35 05/08/17 22:00 84 05/08/17 20:06 97 40 05/08/17 20:00 85 05/08/17 20:00 97.5 85 17 128/77 100 05/08/17 20:00 35 05/08/17 18:00 87 05/08/17 16:00 80 05/08/17 16:00 35 05/08/17 16:00 98.5 80 14 112/64 100 I/O 05/08/17 05/08/17 05/08/17 05/09/17 05/09/17 05/09/17 07:00 15:00 23:00 07:00 15:00 23:00 Intake Total 1074 ml 255 ml 373 ml 274 ml 337 ml Output Total 75 ml 900 ml 100 ml 50 ml 1150 ml Balance 999 ml -645 ml 273 ml 224 ml -813 ml IV Total 274 ml 255 ml 253 ml 274 ml 337 ml Tube Feeding 0 ml 0 ml Tube Irrigant 800 ml Other 120 ml Output Urine Total 75 ml 150 ml 100 ml 50 ml 50 ml Gastric Drainage Total 750 ml 1100 ml # Bowel Movements 0 0 0 0 0 Result Diagram: 05/09/17 0500 05/09/17 0500 Objective Remarks GENERAL: This is a well-nourished, well-developed patient,intubated and on Vent support. HEENT: ET tube in. CARDIOVASCULAR: Regular rate and rhythm without murmurs, gallops, or rubs. RESPIRATORY: Diffuse expiratory wheezes, Occ Crackles at Bases.diminished breath sounds bilaterally. GASTROINTESTINAL: Abdomen soft, non-tender,nondistended. + bowel sounds MUSCULOSKELETAL: Extremities show 1 + edema. NEURO: Sedated. Assessment and Plan Assessment and Plan ASSESSMENT 1. Acute kidney injury. 2. Respiratory failure. 3. Pulmonary embolism. 4. Non-Hodgkin's lymphoma. 5. Anemia. 6. Hyperphosphatemia. Plan : 1. Wean FIo2 to 40 % and PEEP to keep sat >92. 2. Nebs qid , duoneb 3. Anticoagulation as Ordered/Heparin 4. CBC ,BMP 5. Tube feeds at 60 CC 6. CPAP trial daily 7. Continue Dialysis as planned. 8. Cont antibiotics. Con Pierre MD May 09, 2017 15:25
[2017-05-09 18:00] LABS: APTT (PATIENT) 39.4 SEC (24.3-30.1)
[2017-05-09] MEDS ORDERED: HEPARIN SODIUM - IV 10,000 UNITS/10 ML VIAL IV ONE (18:30)
--- NOTE | 2017-05-09 19:12 | HHI.CCPN ---
Subjective Remarks/Hospital Course Hospital Course: This is a 47yM who was originally admitted for acute pancreatitis and during this hospital admission found to have an acute aggressive non-hodgkin's lymphoma. he has had progressive shortness of breath secondary to bilateral pleural effusions and adenopathy. He rapid responsed today for worsening hypoxemia on a NRB and in severe respiratory distress. When I evaluated the patient on arrival to the [facility] [place], he is in severe respiratory distress, unable to speak, RR > 40, spo2 92% on NRB, using accessory muscles. CXR without over fluid overload. additional information is unobtainable secondary to the clinical condition of the patient. Subjective: 05/03: TPA given overnight. started on heparin drip after. this morning, oligoaneuric with Cr rise to 3.3 this AM. also more hypotensive, although fio2 significantly improved to 45%. bilateral pleural effusions persist. echo yesterday with biventricular dysfunction. hgb stable. 05/04:Flolan decreased to 20 from 30 ngs. Slight improvement in chest x-ray. Epinephrine infusion currently being weaned . Nephrology consulted secondary to continue rising creatinine. 05/05: Hemodynamically stable, epinephrine weaned off yesterday. Nephrology following Dr. Haley with plans for possible dialysis tomorrow. Discussed with hematology oncology plan for reinitiation of chemotherapy with initiation of dialysis. Respiratory system with Flolan decrease stable. Plan to decrease Flolan to 10 ng, with potential for cessation in a.m.. 05/06: No acute issues overnight. Attempts at CPAP trials unsuccessful yesterday. Vascular catheter placement this a.m.. Plan for dialysis today. ABGs obtained, Flolan discontinued today. Possible plan for reinitiation of chemotherapy. 05/07: Overnight the patient was noted to have emesis, and large residual tube feeds. Reglan 10 mg every 8 hours initiated today. Will reinitiate tube feeds at trickle 10 cc/hour. CPAP trials initiated, the patient tolerated CPAP for approximately 3 hours today. Hemodialysis initiated yesterday 2 L off, plan for 2 L removal today. The patient oxygen level maintained, will continue to wean. Repeat echo planned for Thursday, 1 week post TPA. 05/08: The patient successfully went through CPAP trials 3-4 hours yesterday. CPAP trials continue today. The patient was noted to have emesis approximately 2 L over the last 24 hours, despite initiation of her prokinetic, Reglan. Reglan discontinued KUB ordered results pending this a.m.. Bowel regimen expanded. The patient underwent hemodialysis with approximately 2 L removed yesterday. 05/09: The patient remains subtherapuetic on Heparin infusion protocol, PTT 37.2 , per Hematology minimal acceptable range PTT 60. The patient was bolused with Heparin 200units and increased to 1200units. Pending limited ECHO study to evaluate RV strain, Pulm HTN and LV function. New labs pending. Ileus vs possible bowel obstruction ,approximately 1100 cc gastric contents overnight. Plan for CT abdomen with PO contrast only 2/2 acute renal failure. Objective Vital Signs Date Time Temp Pulse Resp B/P Pulse Ox O2 Delivery O2 Flow Rate FiO2 05/09/17 18:00 85 05/09/17 16:04 95 40 05/09/17 16:00 99.6 14 104/56 05/08/17 07:52 Ventilator Intake and Output 05/08/17 05/08/17 05/08/17 07:59 15:59 23:59 Intake Total 1074 ml 255 ml 373 ml Output Total 75 ml 900 ml 100 ml Balance 999 ml -645 ml 273 ml Result Diagram: 05/09/17 0500 05/09/17 0500 Imaging Last Impressions Chest X-Ray 05/06/17 0000 Signed Impressions: Service Date/Time: Saturday, May 06, 2017 12:00 - CONCLUSION: 1. Vas-Cath in good position without pneumothorax. Kirk Briceño MD FACR Renal Ultrasound 05/05/17 0000 Signed Impressions: Service Date/Time: Friday, May 05, 2017 20:06 - CONCLUSION: 1. Kidneys are borderline echogenic which can be seen with medical renal disease. 2. No evidence of hydronephrosis. 3. Abdominal ascites. 4. Multiple dilated bowel loops. 5. Bilateral pleural effusions. Tray Patel MD Head CT 05/03/17 0000 Signed Impressions: Service Date/Time: Wednesday, May 03, 2017 17:22 - CONCLUSION: No acute intracranial disease. No hemorrhage seen. Tray Patel MD CT Angiography 05/02/17 0000 Signed Impressions: Service Date/Time: Tuesday, May 02, 2017 11:10 - CONCLUSION: 1. There is pulmonary embolus in the right pulmonary artery, right upper lobe and lower lobe branches. 2. Resorption of previously seen gas in the left axilla with fluid collection at this site with postprocedural change and possibly postprocedural hemorrhage not significantly changed in size. 3. Interval development of right lung airspace process may represent postobstructive pneumonia and there is mucus within the trachea not present yesterday. 4. Right pleural effusion is smaller and left pleural effusion is larger. 5. No change in bulky adenopathy. Leonor Chavez MD Upper Extremity Ultrasound 04/30/17 0000 Signed Impressions: Service Date/Time: April 12:25 - CONCLUSION: There some superficial thrombosis of a vein in the forearm. The deep venous system is patent. Large fluid collection left axilla. Significant soft tissue edema throughout the upper arm. Rinku Hillman MD Thoracentesis Ultrasound 04/30/17 0000 Signed Impressions: Service Date/Time: April 12:14 - CONCLUSION: Uncomplicated ultrasound guided thoracentesis. Tray Patel MD Port Line Insertion 04/27/17 0000 Signed Impressions: Service Date/Time: Thursday, April 27, 2017 14:56 - CONCLUSION: 1. Bulky bilateral lower cervical lymphadenopathy. 2. Uncomplicated ultrasound and fluoroscopic guided implanted central venous port catheter placement as described in detail above. An 8 [place] Power port was placed. Liang Peralta MD Bone Biopsy CT 04/27/17 0000 Signed Impressions: Service Date/Time: Thursday, April 27, 2017 16:22 - CONCLUSION: 1. Uncomplicated CT guided bone marrow aspirate. 2. Uncomplicated CT guided bone marrow biopsy. Tray Patel MD Chest CT 04/25/17 0000 Signed Impressions: Service Date/Time: Wednesday, April 26, 2017 19:00 - CONCLUSION: The right pleural effusion is slightly larger on the left side has not changed. Extensive bulky adenopathy as before and malignancies such as lymphoma is suspected. Leonor Chavez MD Gall Bladder Ultrasound 04/22/17 0000 Signed Impressions: Service Date/Time: Saturday, April 22, 2017 07:35 - CONCLUSION: Small liver with focal abdomen only incompletely evaluated. Large right pleural effusion. effusion. Kirk Briceño MD FACR Abdomen CT 04/20/17 0000 Signed Impressions: Service Date/Time: Thursday, April 20, 2017 19:40 - CONCLUSION: Limited exam because of lack of intravenous contrast. Lymphoma is suspected. Pathological diagnosis could be obtained with ultrasound biopsy of the cervical, axillary or inguinal adenopathy. Kirk Briceño MD FACR Last Impressions Chest X-Ray 05/03/17 0600 Signed Impressions: Service Date/Time: Wednesday, May 03, 2017 03:46 - CONCLUSION: Improving infiltrates. No Tacos Garcia MD Head CT 05/03/17 0000 Signed Impressions: Service Date/Time: Wednesday, May 03, 2017 17:22 - CONCLUSION: No acute intracranial disease. No hemorrhage seen. Tray Patel MD CT Angiography 05/02/17 0000 Signed Impressions: Service Date/Time: Tuesday, May 02, 2017 11:10 - CONCLUSION: 1. There is pulmonary embolus in the right pulmonary artery, right upper lobe and lower lobe branches. 2. Resorption of previously seen gas in the left axilla with fluid collection at this site with postprocedural change and possibly postprocedural hemorrhage not significantly changed in size. 3. Interval development of right lung airspace process may represent postobstructive pneumonia and there is mucus within the trachea not present yesterday. 4. Right pleural effusion is smaller and left pleural effusion is larger. 5. No change in bulky adenopathy. Leonor Chavez MD Upper Extremity Ultrasound 04/30/17 Signed Impressions: Service Date/Time: April 12:25 - CONCLUSION: There some superficial thrombosis of a vein in the forearm. The deep venous system is patent. Large fluid collection left axilla. Significant soft tissue edema throughout the upper arm. Rinku Hillman MD Thoracentesis Ultrasound 04/30/17 0000 Signed Impressions: Service Date/Time: , April 30, 2017 12:14 - CONCLUSION: Uncomplicated ultrasound guided thoracentesis. Tray Patel MD Port Line Insertion 04/27/17 0000 Signed Impressions: Service Date/Time: Thursday, April 27, 2017 14:56 - CONCLUSION: 1. Bulky bilateral lower cervical lymphadenopathy. 2. Uncomplicated ultrasound and fluoroscopic guided implanted central venous port catheter placement as described in detail above. An 8 [place] Power port was placed. Liang Peralta MD Bone Biopsy CT 04/27/17 0000 Signed Impressions: Service Date/Time: Thursday, April 27, 2017 16:22 - CONCLUSION: 1. Uncomplicated CT guided bone marrow aspirate. 2. Uncomplicated CT guided bone marrow biopsy. Tray Patel MD Chest CT 04/25/17 0000 Signed Impressions: Service Date/Time: Wednesday, April 26, 2017 19:00 - CONCLUSION: The right pleural effusion is slightly larger on the left side has not changed. Extensive bulky adenopathy as before and malignancies such as lymphoma is suspected. Leonor Chavez MD Gall Bladder Ultrasound 04/22/17 0000 Signed Impressions: Service Date/Time: Saturday, April 22, 2017 07:35 - CONCLUSION: Small liver with focal abdomen only incompletely evaluated. Large right pleural effusion. effusion. Kirk Briceño MD FACR Abdomen CT 04/20/17 0000 Signed Impressions: Service Date/Time: Thursday, April 20, 2017 19:40 - CONCLUSION: Limited exam because of lack of intravenous contrast. Lymphoma is suspected. Pathological diagnosis could be obtained with ultrasound biopsy of the cervical, axillary or inguinal adenopathy. Kirk Briceño MD FACR Last Impressions Chest X-Ray 05/02/17 0000 Signed Impressions: Service Date/Time: Tuesday, May 02, 2017 08:11 - CONCLUSION: There is mild improvement in aeration of the right lower lung, otherwise not significantly changed. Leonor Chavez MD Upper Extremity Ultrasound 04/30/17 0000 Signed Impressions: Service Date/Time: April 12:25 - CONCLUSION: There some superficial thrombosis of a vein in the forearm. The deep venous system is patent. Large fluid collection left axilla. Significant soft tissue edema throughout the upper arm. Rinku Hillman MD Thoracentesis Ultrasound 04/30/17 0000 Signed Impressions: Service Date/Time: April 12:14 - CONCLUSION: Uncomplicated ultrasound guided thoracentesis. Tray Patel MD Port Line Insertion 04/27/17 0000 Signed Impressions: Service Date/Time: Thursday, April 27, 2017 14:56 - CONCLUSION: 1. Bulky bilateral lower cervical lymphadenopathy. 2. Uncomplicated ultrasound and fluoroscopic guided implanted central venous port catheter placement as described in detail above. An 8 [place] Power port was placed. Liang Peralta MD Bone Biopsy CT 04/27/17 0000 Signed Impressions: Service Date/Time: Thursday, April 27, 2017 16:22 - CONCLUSION: 1. Uncomplicated CT guided bone marrow aspirate. 2. Uncomplicated CT guided bone marrow biopsy. Tray Patel MD Chest CT 04/25/17 0000 Signed Impressions: Service Date/Time: Wednesday, April 26, 2017 19:00 - CONCLUSION: The right pleural effusion is slightly larger on the left side has not changed. Extensive bulky adenopathy as before and malignancies such as lymphoma is suspected. Leonor Chavez MD Gall Bladder Ultrasound 04/22/17 0000 Signed Impressions: Service Date/Time: Saturday, April 22, 2017 07:35 - CONCLUSION: Small liver with focal abdomen only incompletely evaluated. Large right pleural effusion. effusion. Kirk Briceño MD FACR Abdomen CT 04/20/17 0000 Signed Impressions: Service Date/Time: Thursday, April 20, 2017 19:40 - CONCLUSION: Limited exam because of lack of intravenous contrast. Lymphoma is suspected. Pathological diagnosis could be obtained with ultrasound biopsy of the cervical, axillary or inguinal adenopathy. Kirk Briceño MD FACR Objective Remarks GENERAL: Well-nourished well-developed middle-aged male, lying in bed, intubated, sedated, responsive GCS 11T HEENT: perrl. mucous membranes moist NECK: no jvd. trachea midline orotracheally intubated PULM: Right chest Port-A-Cath in situ, clear to auscultation. equal chest rise. Left IJ vas catheter CV: Regular, regular rhythm. No murmurs rubs or gallops ABD: soft, nontender, nondistended. no guarding. EXTREMITIES: trace peripheral edema. distal pulses 1+ NEURO: RASS -2. movement of extremities x 4 follows commands, intubated and sedated. Procedures 04/[address] excision biopsy 04/27- port placement 05/02-TPA 05/06-left IJ Vas-Cath placement A/P Assessment and Plan Assessment: 47yM with aggressive large B cell lymphoma, acute pancreatitis, now with submassive PE, acute cardiogenic shock, acute hypoxic respiratory failure, now oligoaneuric acute kidney injury secondary to shock. Currently inotropic therapy with epinephrine and inhaled flolan , decreased for RV support. Remains very critically ill. Will be unable to add invasive monitoring until his TPA window x 24h is complete. Also will need drainage of his pleural effusions, although will hold off for now given cardiogenic shock. Plan by Systems: Neuro: -- Wean Propofol, continue fentanyl infusions for ventilator synchrony - goal RASS -2 -- repeat head on 05/03 CT 24h after TPA-no abnormality --Daily sedation vacation- GCS 11T Respiratory: Acute Hypoxic Respiratory Failure Acute Submassive Pulmonary Embolism Bilateral pleural effusions, large, acute -- vent bundle, hob at 30 degrees, --Every 6 hours scheduled nebs -- wean fio2 for goal spo2 > 90% -- Discontinued inhaled flolan 05/06 -- Follow-up chest x-ray and ABGs --Continue CPAP trials as tolerated Cardiovascular: Acute Submassive Pulmonary Embolism Right Heart Dysfunction Global severe left ventricular systolic dysfunction Cardiogenic Shock -- high risk for sudden cardiac s/p acute PE -- Epinephrine discontinued 05/04 -- Maintain a goal MAP > 65 mmHg -- 2d echo 05/02: EF 30-35%, RV dysfunction with dilation --Repeat ECHO limited study scheduled on 05/09- F/U results Renal: Acute Kidney Injury -- likely secondary to cardiogenic shock - Nephrology following, Dr. Haley --Left IJ vas catheter placement-initiation of hemodialysis today -- continue shepard with strict I/Os. --Hemodialysis per nephrology FEN/GI: Hyperphosphatemia Hyperkalemia Hypocalcemia Acute protein calorie malnutrition- severe Ileus -- per the echo from yesterday, intravascular volume status is appropriate, but very likely will get volume overloaded today given severe oliguria. will minimize excess iv fluids -- 05/08 tube feeds on hold, G-tube to LIWS suction --General surgery following -GI consulted, appreciate recommendations -Expanded bowel regimen MiraLAX, lactulose, due to site suppository -Tube feeds placed on hold. NG tube to low intermittent wall suction-1950 cc out last 24 hours -Follow-up stat KUB -- PhosLo -- daily electrolytes, replete per ICU protocol Heme/ID Acute Large Cell B-cell lymphoma Pulmonary Embolism -- hematology/oncology following Dr. Connelly-tentative plan to resume CHOP therapy -- chemo on hold secondary to his acute life-threatening illnesses. -- continue heparin drip,Maintain goal PTT 60 - 80. Bolused with 200 units, and increased to 1200u/hr. Discussed with Dr. Yen. Will eventually transition to Coumadin Endocrine: Hyperglycemia of Critical Illness -- SSI, q6h, med scale Msk: --PT evaluation and treat --Multi-Podus boots --PT daily functional maintenance Prophylaxis: DVT: SCDs, heparin drip GI: protonix Lines: -- port right chest --Left IJ vas catheter, peripheral IVs 2 -- shepard Dispo: This patient remains critically ill with one or more organ systems which are or may become a threat to life. I have spent in excess of 34 minutes discontinuously in the care and management of this patient. This time is exclusive of procedures, and includes, but is not limited to, evaluation of the patient, review of the medical record, discussions with family, consultants, nursing staff, or respiratory therapy, and documentation in the medical record. Physician Lyudmila Aldrich MD May 09, 2017 19:12
[2017-05-09 20:29] LABS: INTERNATIONAL NORMALIZED RATIO 1.1 RATIO; PROTHROMBIN TIME - PATIENT 12.2 SEC (9.8-11.6)
--- NOTE | 2017-05-09 22:00 | RADRPT ---
EXAM DATE/TIME: 05/09/2017 21:16 [facility] COMPARISON: US KIDNEY/RENAL/BLADDER, May 05, 2017, 20:06. ABDOMEN KUB ONLY, May 08, 2017, 7:04. CHEST SINGLE AP, May 09, 2017, 3:15. INDICATIONS : Obstruction. ORAL CONTRAST: Prescribed oral contrast ingested. RADIATION DOSE: 9.96 CTDIvol (mGy) MEDICAL HISTORY : None SURGICAL HISTORY : None. ENCOUNTER: Initial ACUITY: 1 day PAIN SCALE: Non-responsive LOCATION: Bilateral abdomen TECHNIQUE: Volumetric scanning of the abdomen and pelvis was performed. Using automated exposure control and ad justment of the mA and/or kV according to patient size, radiation dose was kept as low as reasonably achievable to obtain optimal diagnostic quality images. DICOM format image data is available electro nically for review and comparison. FINDINGS: There are moderately large bilateral pleural effusions measuring up to 5 cm in thickness. There is c ompressive atelectasis in the adjacent lower lungs. The liver, spleen, pancreas and gallbladder are unremarkable for noncontrast technique. There is an asymmetric appearance to the parenchyma of the k idneys with patchy areas of hyperdensity in the right kidney and homogeneous low-density in the prep of the left kidney. No evidence of hydronephrosis and no calcified renal stones seen. Calcification in the wall nondistended abdominal aorta. Singh catheter is present within the urinary bladder. There is a moderate amount of free fluid in the pelvis measuring up to 3 cm in thickness. Only mild upper abdominal ascites seen about the free edge of the liver and in the right paracolic g utter. Oral contrast does pass through to the colon, but the density of the bowel contrast is decreased sugg esting dilution effects. Small bowel loops are distended diffusely measuring up to 4.2 cm in dimensi on. The air containing loops of bowel seen on conventional radiograph represent the right and transv erse colon. There is some gas within the lumen of small bowel, but this is only mild. No transition point seen in the small bowel. There is an abnormal appearance to the mesentery with multiple enlarged nodes which measure up to 2.9 cm in dimension. There also appears to be retroperitoneal adenopathy about the upper abdominal aort a, but there is a lack of fat and no discrete retroperitoneal masses are outlined. There is a right inguinal node measuring 2.4 cm per Osseous structures are grossly intact. There is prominent induration and edema in the subcutaneous s oft tissue suggesting anasarca. CONCLUSION: 1. Diffusely distended loops of small bowel down to the cecum suggest ileus. 2. Evidence of mesenteric and retroperitoneal adenopathy. 3. Large bilateral pleural effusions, moderate amount of free fluid in the pelvis and mild ascites in the upper abdomen. 4. Abnormal appearance to the parenchyma of the right kidney with patchy areas of hyperdensity in a m osaic pattern. This of uncertain significance. The patient had iodinated contrast for a CT pulmonar y angiogram 7 days ago; this could potentially represent residual parenchymal contrast which would be nonspecific, but raises the possibility of either obstruction or renal infarctions. Bryon Evans MD on May 09, 2017 at 21:48 Board Certified Radiologist. This report was verified electronically.
[2017-05-10] VITALS (21 sets, daily range): BP systolic 116–138; BP diastolic 61–68; PULSE 79–92; RESP 14–23; TEMP 97.9–99.6; O2SAT 95–100
[2017-05-10 01:15] LABS: APTT (PATIENT) 48.1 SEC (24.3-30.1)
[2017-05-10] MEDS: ARTIFICIAL TEARS OPTH OINT 3.5 APPLIC/3.5 GM TUBO EACH EYE SCH ×3 (02:28→18:35)
[2017-05-10 03:46] LABS: HEMATOCRIT 21.4 % (39.0-51.0); MEAN CELL VOLUME 84.2 FL (80.0-100.0); MEAN CORPUSCULAR HEMOGLOBIN 29.5 PG (27.0-34.0); MEAN CORPUSCULAR HGB CONC 35.1 % (32.0-36.0); PLATELET COUNT 375 TH/MM3 (150-450); RED BLOOD COUNT 2.54 MIL/MM3 (4.50-5.90); RED CELL DISTRIBUTION WIDTH 16.4 % (11.6-17.2); REVIEW FLAG FINAL; WHITE BLOOD COUNT 10.5 TH/MM3 (4.0-11.0)
[2017-05-10 03:57] LABS: APTT (PATIENT) 51.3 SEC (24.3-30.1)
[2017-05-10 04:17] LABS: BICARBONATE 29.2 MEQ/L (21.0-32.0); MAGNESIUM 2.2 MG/DL (1.5-2.5); POTASSIUM 3.3 MEQ/L (3.5-5.1)
--- NOTE | 2017-05-10 04:45 | RADRPT ---
EXAM DATE/TIME: 05/10/2017 03:45 [facility] COMPARISON: CHEST SINGLE AP, May 09, 2017, 3:15. INDICATIONS : Respiratory failure, infiltrate MEDICAL HISTORY : Pancreatitis. Lymphoma. SURGICAL HISTORY : None. ENCOUNTER: Subsequent ACUITY: 2 weeks PAIN SCORE: Non-responsive. LOCATION: Bilateral chest FINDINGS: A single view of the chest demonstrates the endotracheal tube, and nasogastric tube, right IJ Infuse- a-Port and left IJ vas catheter all in good position. There are bilateral pleural effusions present. There is no visible pneumothorax.. The cardiomediastinal contours are unremarkable. Osseous structu res are intact. CONCLUSION: Tubes and catheters are in good position. Bilateral pleural effusions persist. Right paratracheal str ipe widening is unchanged Rinku Hillman MD on May 10, 2017 at 4:43 Board Certified Radiologist. This report was verified electronically.
[2017-05-10] MEDS: fentaNYL DRIP 250 ML IV SCH (05:36)
[2017-05-10] MEDS: HEPARIN-D5W 25,000 U/250 ML 250 ML IV SCH ×2 (05:38→22:03)
[2017-05-10] MEDS: INSULIN NovoLIN REGULAR SUPPLEMENTAL SCALE SQ SCH ×4 (06:00→18:00)
[2017-05-10] MEDS: PROPOFOL 1000 MG/100 ML INJ 100 ML IV SCH (06:54)
[2017-05-10 07:06] LABS: APTT (PATIENT) 52.7 SEC (24.3-30.1)
[2017-05-10] MEDS: CALCIUM ACETATE 667 MG CAP PO SCH ×3 (07:51→18:00)
[2017-05-10] MEDS: NIFEdipine 90 MG SUSTAINED RELEASE TAB PO SCH (07:51)
[2017-05-10] MEDS: PANTOPRAZOLE SODIUM 40 MG VIAL IV PUSH SCH (07:51)
[2017-05-10] MEDS: LACTULOSE SYRUP 20 GM/30 ML CUP PO SCH ×2 (07:51→20:53)
[2017-05-10] MEDS: CHLORHEXIDINE 0.12% (ORAL KIT) 15 ML CUP MT SCH ×2 (07:52→20:00)
[2017-05-10] MEDS: POLYETHYLENE GLYCOL 17 GM PKG PO SCH (07:52)
[2017-05-10] MEDS: ALLOPURINOL 100 MG TAB PO SCH (07:52)
[2017-05-10] MEDS: DOCUSATE SODIUM 50 MG/SENNA 8.6 MG TAB PO SCH ×2 (07:52→20:53)
[2017-05-10 10:02] LABS: APTT (PATIENT) 66.5 SEC (24.3-30.1)
--- NOTE | 2017-05-10 10:46 | HHI.GIFU ---
Subjective Remarks Patient on vent, eyes open. Gastric output from OGT, green bilious. (Kiara Jaeger) Objective Vitals I&O Vital Signs Date Time Temp Pulse Resp B/P Pulse Ox O2 Delivery O2 Flow Rate FiO2 05/10/17 10:07 99 40 05/10/17 08:00 40 05/10/17 08:00 99.3 83 15 124/67 100 05/10/17 08:00 83 05/10/17 07:21 99 40 05/10/17 06:00 90 05/10/17 04:41 98 40 05/10/17 04:00 40 05/10/17 04:00 99.6 85 14 130/61 97 05/10/17 04:00 85 05/10/17 02:00 81 05/10/17 01:04 98 40 05/10/17 00:00 40 05/10/17 00:00 99.0 82 14 116/66 100 05/10/17 00:00 82 05/09/17 22:00 85 05/09/17 21:15 98 100 05/09/17 20:00 40 05/09/17 20:00 86 05/09/17 20:00 99.4 86 15 122/64 98 05/09/17 19:45 100 40 05/09/17 18:00 85 05/09/17 16:04 95 40 05/09/17 16:00 99.6 88 14 104/56 95 05/09/17 16:00 88 05/09/17 16:00 35 05/09/17 14:06 100 40 05/09/17 14:00 87 05/09/17 12:00 40 05/09/17 12:00 83 05/09/17 12:00 99.2 83 14 115/72 100 I/O 05/09/17 05/09/17 05/09/17 05/10/17 05/10/17 05/10/17 07:00 15:00 23:00 07:00 15:00 23:00 Intake Total 274 ml 337 ml 294 ml 331 ml Output Total 50 ml 2650 ml 100 ml 750 ml Balance 224 ml -2313 ml 194 ml -419 ml IV Total 274 ml 337 ml 294 ml 331 ml Tube Feeding 0 ml Output Urine Total 50 ml 50 ml 100 ml 50 ml Gastric Drainage Total 1100 ml 700 ml Hemodialysis 1500 ml # Bowel Movements 0 0 Laboratory Laboratory Tests Test 05/09/17 05/09/17 05/10/17 05/10/17 17:00 20:00 00:00 03:15 Activated Partial 39.4 41.0 48.1 51.3 Thromboplast Time Prothrombin Time 12.2 Prothromb Time International 1.1 Ratio Test 05/10/17 05/10/17 05/10/17 03:31 06:00 09:40 White Blood Count 10.5 Red Blood Count 2.54 Hemoglobin 7.5 Hematocrit 21.4 Mean Corpuscular Volume 84.2 Mean Corpuscular Hemoglobin 29.5 Mean Corpuscular Hemoglobin 35.1 Concent Red Cell Distribution Width 16.4 Platelet Count 375 Mean Platelet Volume 7.4 Sodium Level 137 Potassium Level 3.3 Chloride Level 92 Carbon Dioxide Level 29.2 Anion Gap 16 Blood Urea Nitrogen 43 Creatinine 5.86 Estimat Glomerular Filtration 13 Rate Random Glucose 80 Calcium Level 8.4 Phosphorus Level 7.8 Magnesium Level 2.2 Activated Partial 52.7 66.5 Thromboplast Time Imaging Last Impressions Chest X-Ray 05/10/17 0600 Signed Impressions: Service Date/Time: Wednesday, May 10, 2017 03:45 - CONCLUSION: Tubes and catheters are in good position. Bilateral pleural effusions persist. Right paratracheal stripe widening is unchanged Rinku Hillman MD Abdomen/Pelvis CT 05/09/17 0000 Signed Impressions: Service Date/Time: Tuesday, May 09, 2017 21:16 - CONCLUSION: 1. Diffusely distended loops of small bowel down to the cecum suggest ileus. 2. Evidence of mesenteric and retroperitoneal adenopathy. 3. Large bilateral pleural effusions , moderate amount of free fluid in the pelvis and mild ascites in the upper abdomen. 4. Abnormal appearance to the parenchyma of the right kidney with patchy areas of hyperdensity in a mosaic pattern. This of uncertain significance. The patient had iodinated contrast for a CT pulmonary angiogram 7 days ago; this could potentially represent residual parenchymal contrast which would be nonspecific, but raises the possibility of either obstruction or renal infarctions. Bryon Evans MD Abdomen X-Ray 05/08/17 0000 Signed Impressions: Service Date/Time: Monday, May 08, 2017 07:04 - CONCLUSION: 1. Air-filled mildly dilated loops of small bowel suggesting ileus or partial small bowel obstruction. Clinical correlation is commended. Fidel Isaac MD Renal Ultrasound 05/05/17 Signed Impressions: Service Date/Time: Friday, May 05, 2017 20:06 - CONCLUSION: 1. Kidneys are borderline echogenic which can be seen with medical renal disease. 2. No evidence of hydronephrosis. 3. Abdominal ascites. 4. Multiple dilated bowel loops. 5. Bilateral pleural effusions. Tray Patel MD Head CT 05/03/17 Signed Impressions: Service Date/Time: Wednesday, May 03, 2017 17:22 - CONCLUSION: No acute intracranial disease. No hemorrhage seen. Tray Patel MD CT Angiography 05/02/17 Signed Impressions: Service Date/Time: Tuesday, May 02, 2017 11:10 - CONCLUSION: 1. There is pulmonary embolus in the right pulmonary artery, right upper lobe and lower lobe branches. 2. Resorption of previously seen gas in the left axilla with fluid collection at this site with postprocedural change and possibly postprocedural hemorrhage not significantly changed in size. 3. Interval development of right lung airspace process may represent postobstructive pneumonia and there is mucus within the trachea not present yesterday. 4. Right pleural effusion is smaller and left pleural effusion is larger. 5. No change in bulky adenopathy. Leonor Chavez MD Upper Extremity Ultrasound 04/30/17 Signed Impressions: Service Date/Time: April 12:25 - CONCLUSION: There some superficial thrombosis of a vein in the forearm. The deep venous system is patent. Large fluid collection left axilla. Significant soft tissue edema throughout the upper arm. Rinku Hillman MD Thoracentesis Ultrasound 04/30/17 Signed Impressions: Service Date/Time: April 12:14 - CONCLUSION: Uncomplicated ultrasound guided thoracentesis. Tray Patel MD Port Line Insertion 04/27/17 Signed Impressions: Service Date/Time: Thursday, April 27, 2017 14:56 - CONCLUSION: 1. Bulky bilateral lower cervical lymphadenopathy. 2. Uncomplicated ultrasound and fluoroscopic guided implanted central venous port catheter placement as described in detail above. An 8 Urdu Power port was placed. Liang Peralta MD Bone Biopsy CT 04/27/17 0000 Signed Impressions: Service Date/Time: Thursday, April 27, 2017 16:22 - CONCLUSION: 1. Uncomplicated CT guided bone marrow aspirate. 2. Uncomplicated CT guided bone marrow biopsy. Tray Patel MD Chest CT 04/25/17 0000 Signed Impressions: Service Date/Time: Wednesday, April 26, 2017 19:00 - CONCLUSION: The right pleural effusion is slightly larger on the left side has not changed. Extensive bulky adenopathy as before and malignancies such as lymphoma is suspected. Leonor Chavez MD Gall Bladder Ultrasound 04/22/17 0000 Signed Impressions: Service Date/Time: Saturday, April 22, 2017 07:35 - CONCLUSION: Small liver with focal abdomen only incompletely evaluated. Large right pleural effusion. effusion. Kirk Briceño MD FACR Abdomen CT 04/20/17 0000 Signed Impressions: Service Date/Time: Thursday, April 20, 2017 19:40 - CONCLUSION: Limited exam because of lack of intravenous contrast. Lymphoma is suspected. Pathological diagnosis could be obtained with ultrasound biopsy of the cervical, axillary or inguinal adenopathy. Kirk Briceño MD FACR Physical Exam HEENT: PERRL. Normocephalic; atraumatic; no jaundice. CHEST: CTA CARDIAC: RRR ABDOMEN: Distended, nontender; no hepatosplenomegaly; bowel sounds hypoactive EXTREMITIES: Trace peripheral edema. Distal pulses 1+ SKIN: Normal; no rash; no jaundice. 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 Still with significant brownish greenish material with sediments from OGT On Lactulose, miralax, senna, Colace pulse 2 SSE without any results KUB 05/08--Air-filled mildly dilated loops of small bowel suggesting ileus or partial small bowel obstruction. Abdomen/Pelvis CT 05/09/17-- 1. Diffusely distended loops of small bowel down to the cecum suggest ileus. 2. Evidence of mesenteric and retroperitoneal adenopathy. 3. Large bilateral pleural effusions, moderate amount of free fluid in the pelvis and mild ascites in the upper abdomen. 4. Abnormal appearance to the parenchyma of the right kidney with patchy areas of hyperdensity in a mosaic pattern. This of uncertain significance. The patient had iodinated contrast for a CT pulmonary angiogram 7 days ago; this could potentially represent residual parenchymal contrast which would be nonspecific, but raises the possibility of either obstruction or renal infarctions. WBC 10.5. HH 7.5/21.4. General surgery following. - Acute hypoxic respiratory failure, Chest X-Ray 05/10/17--Tubes and catheters are in good position. Bilateral pleural effusions persist. Right paratracheal stripe widening is unchanged - PE, ALDO on HD, b cell lymphoma - per [facility] PLAN - GS following - Continue bowel regimen - NPO - TF on hold - OGT to LIWS - Further recommendations to follow based on results of above Patient seen and examined by Dr. Richey and myself and this note is written on his behalf. (Kiara Jaeger) Physician Comments Patient seen and examined Agree with above Continue with current supportive care Monitor labs CT result was noted but I think most likely the patient has bowel obstruction rather than an ileus but we will continue to monitor I would highly recommend that pain meds and narcotics being greatly reduced Consider adding Reglan (Manuel Richey MD) Kiara Jaeger May 10, 2017 10:46 Manuel Richey MD May 10, 2017 20:44
--- NOTE | 2017-05-10 12:14 | ECHRPT ---
Indication: hx pulmonary emb. CONCLUSIONS Normal left ventricular size. Mild concentric left ventricular hypertrophy. The left ventricular systolic function is normal with an estimated ejection fraction in the range of 55-60%. The right ventricular size is normal. The right ventricular systoilc function is normal. A possible atrial level shunt is demonstrated by color flow Doppler interrogation, clinical correlat ion recommended (?PFO) Trace mitral valve regurgitation. the aortic valve is not well visualized. No aortic valve stenosis or regurgitation. There is mild tricuspid valve regurgitation. The pulmonary valve is not well visualized. BP: / HR: Rhythm: MEASUREMENTS (Male / Female) Normal Values Technical Quality:Fair 2D ECHO LV Diastolic Diameter PLAX 4.5 cm 4.2 - 5.9 / 3.9 - 5.3 cm LV Systolic Diameter PLAX 3.4 cm IVS Diastolic Thickness 1.3 cm 0.6 - 1.0 / 0.6 - 0.9 cm LVPW Diastolic Thickness 1.3 cm 0.6 - 1.0 / 0.6 - 0.9 cm LV Relative Wall Thickness 0.6 RV Internal Dim ED PLAX 2.3 cm DOPPLER TR Peak Velocity 297.0 cm/s TR Peak Gradient 35.3 mmHg FINDINGS LEFT VENTRICLE Normal left ventricular size. Mild concentric left ventricular hypertrophy. The left ventricular systolic function is normal with an estimated ejection fraction in the range of 55-60%. RIGHT VENTRICLE The right ventricular size is normal. The right ventricular systoilc function is normal. LEFT ATRIUM The left atrial size is normal. RIGHT ATRIUM The right atrial size is normal. ATRIAL SEPTUM A possible atrial level shunt is demonstrated by color flow Doppler interrogation, clinical correlat ion recommended (?PFO) AORTA The aortic root and proximal ascending aorta are normal in size on limited imaging. MITRAL VALVE Structurally normal mitral valve. Trace mitral valve regurgitation. AORTIC VALVE the aortic valve is not well visualized. No aortic valve stenosis or regurgitation. TRICUSPID VALVE Structurally normal tricuspid valve. There is mild tricuspid valve regurgitation. PULMONARY VALVE The pulmonary valve is not well visualized. VESSELS The inferior vena cava is normal in size. PERICARDIUM No pericardial effusion. Allan Chavez MD (Electronically Signed) Final Date:10 May 2017 12:13
--- NOTE | 2017-05-10 12:14 | HHI.NPPN ---
Subjective History of Present Illness 47-year-old male with no known past medical history who came to the hospital with complaint of nausea, vomiting and abdominal pain on April 18. I was called to see the patient because of elevated BUN and creatinine. The patient had a creatinine of 1.3 on presentation which improved to 0.7 and 0.8, then started increasing for last few days. Additional Remarks Patient remain intubated and open eyes awake Objective Data Data 05/09/17 05/10/17 18:59 06:59 Intake Total 337 ml 625 ml Output Total 2650 ml 850 ml Balance -2313 ml -225 ml IV Total 337 ml 625 ml Output Urine Total 50 ml 150 ml Gastric Drainage Total 1100 ml 700 ml Hemodialysis 1500 ml # Bowel Movements 0 Vital Signs Date Time Temp Pulse Resp B/P Pulse Ox O2 Delivery O2 Flow Rate FiO2 05/10/17 10:51 40 05/10/17 10:51 96 40 05/10/17 10:07 99 40 05/10/17 10:00 83 05/10/17 08:00 40 05/10/17 08:00 99.3 83 15 124/67 100 05/10/17 08:00 83 05/10/17 07:21 99 40 05/10/17 06:00 90 05/10/17 04:41 98 40 05/10/17 04:00 40 05/10/17 04:00 99.6 85 14 130/61 97 05/10/17 04:00 85 05/10/17 02:00 81 05/10/17 01:04 98 40 05/10/17 00:00 40 05/10/17 00:00 99.0 82 14 116/66 100 05/10/17 00:00 82 05/09/17 22:00 85 05/09/17 21:15 98 100 05/09/17 20:00 40 05/09/17 20:00 86 05/09/17 20:00 99.4 86 15 122/64 98 05/09/17 19:45 100 40 05/09/17 18:00 85 05/09/17 16:04 95 40 05/09/17 16:00 99.6 88 14 104/56 95 05/09/17 16:00 88 05/09/17 16:00 35 05/09/17 14:06 100 40 05/09/17 14:00 87 -: 05/10/17 0331 05/10/17 0331 Physical Exam Eyes Eye Exam: Pupils Equal Throat Throat Exam: Oral Mucosa [place] & Moist Pulmonary Resp Exam: Crackles, Rhonchi, Decreased Bases, Diminished Breath Sounds, Poor Inspiratory Effort Cardiology CV Exam: Regular, Normal Sinus Rhythm Gastrointestinal/Abdomen GI Exam: Soft, Non-Tender, Bowel Sounds Present, Distended Extremeties Extremities Exam: Trace Edema Neurologic Neuro Exam: Sedated Assessment/Plan Assessment Summary: ALDO/Acute Renal Failure Problem List: (1) Non-Hodgkin lymphoma (2) Adenopathy (3) Pleural effusion (4) Shortness of breath (5) Pulmonary emboli (6) Acute pancreatitis (7) ALDO (acute kidney injury) Plan Patient has minimal urine out put. Urine Na. was low, and Eosinophils negative. Urine out put remain minimal. HD proceeding noted UF 1.5 L yesterday replace K high PO4 due to ARF try Carafate for support period Dr. Haley to follow Problem Qualifiers (1) Non-Hodgkin lymphoma: (2) Acute pancreatitis: Qualified Code: K85.20 - Alcohol-induced acute pancreatitis, unspecified complication status Harriet Stinson MD May 10, 2017 12:14
[2017-05-10] MEDS ORDERED: POTASSIUM CHLOR 20 MEQ PREMIX 100 ML IV ONE (12:30)
--- NOTE | 2017-05-10 15:04 | HHI.PR ---
Subjective Remarks Off sedation. Responds . Vent dependant . On CPAP 5 and FIo2 40 %. On heparin . Chest X ray shows bilateral basal infiltrates.. Objective Vital Signs Date Time Temp Pulse Resp B/P Pulse Ox O2 Delivery O2 Flow Rate FiO2 05/10/17 12:58 96 35 05/10/17 10:51 40 05/10/17 10:51 96 40 05/10/17 10:07 99 40 05/10/17 10:00 83 05/10/17 08:00 40 05/10/17 08:00 99.3 83 15 124/67 100 05/10/17 08:00 83 05/10/17 07:21 99 40 05/10/17 06:00 90 05/10/17 04:41 98 40 05/10/17 04:00 40 05/10/17 04:00 99.6 85 14 130/61 97 05/10/17 04:00 85 05/10/17 02:00 81 05/10/17 01:04 98 40 05/10/17 00:00 40 05/10/17 00:00 99.0 82 14 116/66 100 05/10/17 00:00 82 05/09/17 22:00 85 05/09/17 21:15 98 100 05/09/17 20:00 40 05/09/17 20:00 86 05/09/17 20:00 99.4 86 15 122/64 98 05/09/17 19:45 100 40 05/09/17 18:00 85 05/09/17 16:04 95 40 05/09/17 16:00 99.6 88 14 104/56 95 05/09/17 16:00 88 05/09/17 16:00 35 I/O 05/09/17 05/09/17 05/09/17 05/10/17 05/10/17 05/10/17 06:59 14:59 22:59 06:59 14:59 22:59 Intake Total 274 ml 337 ml 294 ml 331 ml Output Total 50 ml 2650 ml 100 ml 750 ml Balance 224 ml -2313 ml 194 ml -419 ml IV Total 274 ml 337 ml 294 ml 331 ml Tube Feeding 0 ml Output Urine Total 50 ml 50 ml 100 ml 50 ml Gastric Drainage Total 1100 ml 700 ml Hemodialysis 1500 ml # Bowel Movements 0 0 Result Diagram: 05/10/17 0331 05/10/17 0331 Objective Remarks GENERAL: This is a well-nourished, well-developed patient,intubated and on Vent support. HEENT: Trach. CARDIOVASCULAR: Regular rate and rhythm without murmurs, gallops, or rubs. RESPIRATORY: Diffuse expiratory wheezes, Occ Crackles at Bases.diminished breath sounds bilaterally. GASTROINTESTINAL: Abdomen soft, non-tender,nondistended. + bowel sounds MUSCULOSKELETAL: Extremities show 1 + edema. NEURO: Sedated. Assessment and Plan Assessment and Plan ASSESSMENT 1. Acute kidney injury. 2. Respiratory failure. 3. Pulmonary embolism. 4. Non-Hodgkin's lymphoma. 5. Anemia. 6. Hyperphosphatemia. Plan : 1. Wean FIo2 to 35 % and PEEP to keep sat >92. 2. Nebs qid , duoneb 3. Anticoagulation as Ordered/Heparin 4. CPAP trial and extubate if stable 5. Tube feeds at 60 CC 6. Labs ,CXR in am 7. Continue Dialysis as planned. 8. Cont antibiotics. Con Pierre MD May 10, 2017 15:04
[2017-05-10] MEDS: SUCRALFATE 1 GM/10 ML CUP PO SCH ×2 (16:19→20:53)
--- NOTE | 2017-05-10 17:54 | HHI.CCPN ---
Subjective Remarks/Hospital Course Hospital Course: This is a 47yM who was originally admitted for acute pancreatitis and during this hospital admission found to have an acute aggressive non-hodgkin's lymphoma. he has had progressive shortness of breath secondary to bilateral pleural effusions and adenopathy. He rapid responsed today for worsening hypoxemia on a NRB and in severe respiratory distress. When I evaluated the patient on arrival to the [facility], he is in severe respiratory distress, unable to speak, RR > 40, spo2 92% on NRB, using accessory muscles. CXR without over fluid overload. additional information is unobtainable secondary to the clinical condition of the patient. Subjective: 05/03: TPA given overnight. started on heparin drip after. this morning, oligoaneuric with Cr rise to 3.3 this AM. also more hypotensive, although fio2 significantly improved to 45%. bilateral pleural effusions persist. echo yesterday with biventricular dysfunction. hgb stable. 05/04:Flolan decreased to 20 from 30 ngs. Slight improvement in chest x-ray. Epinephrine infusion currently being weaned . Nephrology consulted secondary to continue rising creatinine. 05/05: Hemodynamically stable, epinephrine weaned off yesterday. Nephrology following Dr. Haley with plans for possible dialysis tomorrow. Discussed with hematology oncology plan for reinitiation of chemotherapy with initiation of dialysis. Respiratory system with Flolan decrease stable. Plan to decrease Flolan to 10 ng, with potential for cessation in a.m.. 05/06: No acute issues overnight. Attempts at CPAP trials unsuccessful yesterday. Vascular catheter placement this a.m.. Plan for dialysis today. ABGs obtained, Flolan discontinued today. Possible plan for reinitiation of chemotherapy. 05/07: Overnight the patient was noted to have emesis, and large residual tube feeds. Reglan 10 mg every 8 hours initiated today. Will reinitiate tube feeds at trickle 10 cc/hour. CPAP trials initiated, the patient tolerated CPAP for approximately 3 hours today. Hemodialysis initiated yesterday 2 L off, plan for 2 L removal today. The patient oxygen level maintained, will continue to wean. Repeat echo planned for Thursday, 1 week post TPA. 05/08: The patient successfully went through CPAP trials 3-4 hours yesterday. CPAP trials continue today. The patient was noted to have emesis approximately 2 L over the last 24 hours, despite initiation of her prokinetic, Reglan. Reglan discontinued KUB ordered results pending this a.m.. Bowel regimen expanded. The patient underwent hemodialysis with approximately 2 L removed yesterday. 05/09: The patient remains subtherapeutic on Heparin infusion protocol, PTT 37.2 , per Hematology minimal acceptable range PTT 60. The patient was bolused with Heparin 200units and increased to 1200units. Pending limited ECHO study to evaluate RV strain, Pulm HTN and LV function. New labs pending. Ileus vs possible bowel obstruction, approximately 1100 cc gastric contents overnight. Plan for CT abdomen with PO contrast only 2/2 acute renal failure. 05/10: Jolene orally intubated on mechanical ventilation. Undergoing C Pap trials. Objective Vital Signs Date Time Temp Pulse Resp B/P Pulse Ox O2 Delivery O2 Flow Rate FiO2 05/10/17 16:03 99 35 05/10/17 16:00 99.1 79 16 121/63 05/08/17 07:52 Ventilator Intake and Output 05/09/17 05/09/17 05/10/17 08:00 16:00 00:00 Intake Total 274 ml 337 ml 294 ml Output Total 50 ml 2650 ml 100 ml Balance 224 ml -2313 ml 194 ml Result Diagram: 05/10/17 0331 05/10/17 0331 Imaging Last Impressions Chest X-Ray 05/06/17 0000 Signed Impressions: Service Date/Time: Saturday, May 06, 2017 12:00 - CONCLUSION: 1. Vas-Cath in good position without pneumothorax. Kirk Briceño MD FACR Renal Ultrasound 05/05/17 0000 Signed Impressions: Service Date/Time: Friday, May 05, 2017 20:06 - CONCLUSION: 1. Kidneys are borderline echogenic which can be seen with medical renal disease. 2. No evidence of hydronephrosis. 3. Abdominal ascites. 4. Multiple dilated bowel loops. 5. Bilateral pleural effusions. Tray Patel MD Head CT 05/03/17 0000 Signed Impressions: Service Date/Time: Wednesday, May 03, 2017 17:22 - CONCLUSION: No acute intracranial disease. No hemorrhage seen. Tray Patel MD CT Angiography 05/02/17 0000 Signed Impressions: Service Date/Time: Tuesday, May 02, 2017 11:10 - CONCLUSION: 1. There is pulmonary embolus in the right pulmonary artery, right upper lobe and lower lobe branches. 2. Resorption of previously seen gas in the left axilla with fluid collection at this site with postprocedural change and possibly postprocedural hemorrhage not significantly changed in size. 3. Interval development of right lung airspace process may represent postobstructive pneumonia and there is mucus within the trachea not present yesterday. 4. Right pleural effusion is smaller and left pleural effusion is larger. 5. No change in bulky adenopathy. Leonor Chavez MD Upper Extremity Ultrasound 04/30/17 0000 Signed Impressions: Service Date/Time: April 12:25 - CONCLUSION: There some superficial thrombosis of a vein in the forearm. The deep venous system is patent. Large fluid collection left axilla. Significant soft tissue edema throughout the upper arm. Rinku Hillman MD Thoracentesis Ultrasound 04/30/17 0000 Signed Impressions: Service Date/Time: April 12:14 - CONCLUSION: Uncomplicated ultrasound guided thoracentesis. Tray Patel MD Port Line Insertion 04/27/17 0000 Signed Impressions: Service Date/Time: Thursday, April 27, 2017 14:56 - CONCLUSION: 1. Bulky bilateral lower cervical lymphadenopathy. 2. Uncomplicated ultrasound and fluoroscopic guided implanted central venous port catheter placement as described in detail above. An 8 [employer] port was placed. Liang Peralta MD Bone Biopsy CT 04/27/17 0000 Signed Impressions: Service Date/Time: Thursday, April 27, 2017 16:22 - CONCLUSION: 1. Uncomplicated CT guided bone marrow aspirate. 2. Uncomplicated CT guided bone marrow biopsy. Tray Patel MD Chest CT 04/25/17 0000 Signed Impressions: Service Date/Time: Wednesday, April 26, 2017 19:00 - CONCLUSION: The right pleural effusion is slightly larger on the left side has not changed. Extensive bulky adenopathy as before and malignancies such as lymphoma is suspected. Leonor Chavez MD Gall Bladder Ultrasound 04/22/17 0000 Signed Impressions: Service Date/Time: Saturday, April 22, 2017 07:35 - CONCLUSION: Small liver with focal abdomen only incompletely evaluated. Large right pleural effusion. effusion. Kirk Briceño MD FACR Abdomen CT 04/20/17 0000 Signed Impressions: Service Date/Time: Thursday, April 20, 2017 19:40 - CONCLUSION: Limited exam because of lack of intravenous contrast. Lymphoma is suspected. Pathological diagnosis could be obtained with ultrasound biopsy of the cervical, axillary or inguinal adenopathy. Kirk Briceño MD FACR Last Impressions Chest X-Ray 05/03/17 0600 Signed Impressions: Service Date/Time: Wednesday, May 03, 2017 03:46 - CONCLUSION: Improving infiltrates. No Tacos Garcia MD Head CT 05/03/17 0000 Signed Impressions: Service Date/Time: Wednesday, May 03, 2017 17:22 - CONCLUSION: No acute intracranial disease. No hemorrhage seen. Tray Patel MD CT Angiography 05/02/17 0000 Signed Impressions: Service Date/Time: Tuesday, May 02, 2017 11:10 - CONCLUSION: 1. There is pulmonary embolus in the right pulmonary artery, right upper lobe and lower lobe branches. 2. Resorption of previously seen gas in the left axilla with fluid collection at this site with postprocedural change and possibly postprocedural hemorrhage not significantly changed in size. 3. Interval development of right lung airspace process may represent postobstructive pneumonia and there is mucus within the trachea not present yesterday. 4. Right pleural effusion is smaller and left pleural effusion is larger. 5. No change in bulky adenopathy. Leonor Chavez MD Upper Extremity Ultrasound 04/30/17 0000 Signed Impressions: Service Date/Time: April 12:25 - CONCLUSION: There some superficial thrombosis of a vein in the forearm. The deep venous system is patent. Large fluid collection left axilla. Significant soft tissue edema throughout the upper arm. Rinku Hillman MD Thoracentesis Ultrasound 04/30/17 0000 Signed Impressions: Service Date/Time: , April 30, 2017 12:14 - CONCLUSION: Uncomplicated ultrasound guided thoracentesis. Tray Patel MD Port Line Insertion 04/27/17 0000 Signed Impressions: Service Date/Time: Thursday, April 27, 2017 14:56 - CONCLUSION: 1. Bulky bilateral lower cervical lymphadenopathy. 2. Uncomplicated ultrasound and fluoroscopic guided implanted central venous port catheter placement as described in detail above. An 8 Turkish Power port was placed. Liang Peralta MD Bone Biopsy CT 04/27/17 0000 Signed Impressions: Service Date/Time: Thursday, April 27, 2017 16:22 - CONCLUSION: 1. Uncomplicated CT guided bone marrow aspirate. 2. Uncomplicated CT guided bone marrow biopsy. Tray Patel MD Chest CT 04/25/17 0000 Signed Impressions: Service Date/Time: Wednesday, April 26, 2017 19:00 - CONCLUSION: The right pleural effusion is slightly larger on the left side has not changed. Extensive bulky adenopathy as before and malignancies such as lymphoma is suspected. Leonor Chavez MD Gall Bladder Ultrasound 04/22/17 0000 Signed Impressions: Service Date/Time: Saturday, April 22, 2017 07:35 - CONCLUSION: Small liver with focal abdomen only incompletely evaluated. Large right pleural effusion. effusion. Kirk Briceño MD FACR Abdomen CT 04/20/17 0000 Signed Impressions: Service Date/Time: Thursday, April 20, 2017 19:40 - CONCLUSION: Limited exam because of lack of intravenous contrast. Lymphoma is suspected. Pathological diagnosis could be obtained with ultrasound biopsy of the cervical, axillary or inguinal adenopathy. Kirk Briceño MD FACR Last Impressions Chest X-Ray 05/02/17 0000 Signed Impressions: Service Date/Time: Tuesday, May 02, 2017 08:11 - CONCLUSION: There is mild improvement in aeration of the right lower lung, otherwise not significantly changed. Leonor Chavez MD Upper Extremity Ultrasound 04/30/17 0000 Signed Impressions: Service Date/Time: April 12:25 - CONCLUSION: There some superficial thrombosis of a vein in the forearm. The deep venous system is patent. Large fluid collection left axilla. Significant soft tissue edema throughout the upper arm. Rinku Hillman MD Thoracentesis Ultrasound 04/30/17 0000 Signed Impressions: Service Date/Time: April 12:14 - CONCLUSION: Uncomplicated ultrasound guided thoracentesis. Tray Patel MD Port Line Insertion 04/27/17 0000 Signed Impressions: Service Date/Time: Thursday, April 27, 2017 14:56 - CONCLUSION: 1. Bulky bilateral lower cervical lymphadenopathy. 2. Uncomplicated ultrasound and fluoroscopic guided implanted central venous port catheter placement as described in detail above. An 8 Turkish Power port was placed. Liang Peralta MD Bone Biopsy CT 04/27/17 0000 Signed Impressions: Service Date/Time: Thursday, April 27, 2017 16:22 - CONCLUSION: 1. Uncomplicated CT guided bone marrow aspirate. 2. Uncomplicated CT guided bone marrow biopsy. Tray Patel MD Chest CT 04/25/17 0000 Signed Impressions: Service Date/Time: Wednesday, April 26, 2017 19:00 - CONCLUSION: The right pleural effusion is slightly larger on the left side has not changed. Extensive bulky adenopathy as before and malignancies such as lymphoma is suspected. Leonor Chavez MD Gall Bladder Ultrasound 04/22/17 0000 Signed Impressions: Service Date/Time: Saturday, April 22, 2017 07:35 - CONCLUSION: Small liver with focal abdomen only incompletely evaluated. Large right pleural effusion. effusion. Kirk Briceño MD FACR Abdomen CT 04/20/17 0000 Signed Impressions: Service Date/Time: Thursday, April 20, 2017 19:40 - CONCLUSION: Limited exam because of lack of intravenous contrast. Lymphoma is suspected. Pathological diagnosis could be obtained with ultrasound biopsy of the cervical, axillary or inguinal adenopathy. Kirk Briceño MD FACR Objective Remarks GENERAL: Well-nourished well-developed middle-aged male, lying in bed, intubated, sedated, responsive GCS 11T HEENT: perrl. mucous membranes moist NECK: no jvd. trachea midline orotracheally intubated PULM: Right chest Port-A-Cath in situ, clear to auscultation. equal chest rise. Left IJ vas catheter CV: Regular, regular rhythm. No murmurs rubs or gallops ABD: soft, nontender, nondistended. no guarding. EXTREMITIES: trace peripheral edema. distal pulses 1+ NEURO: RASS -2. movement of extremities x 4 follows commands, intubated and sedated. Procedures 04/[address] excision biopsy 04/27- port placement 05/02-TPA 05/06-left IJ Vas-Cath placement A/P Assessment and Plan Assessment: 47yM with aggressive large B cell lymphoma, acute pancreatitis, now with submassive PE, acute cardiogenic shock, acute hypoxic respiratory failure, now oligoaneuric acute kidney injury secondary to shock. Off epinephrine gtt and inhaled flolan , decreased for RV support. Remains critically ill. May need drainage of his pleural effusions Plan by Systems: Neuro: --Off Propofol, fentanyl for possible extubation -- repeat head on 05/03 CT 24h after TPA-no abnormality --Daily sedation vacation- GCS 11T Respiratory: Acute Hypoxic Respiratory Failure Acute Submassive Pulmonary Embolism Bilateral pleural effusions, large, acute -- vent bundle, hob at 30 degrees, --Every 6 hours scheduled nebs -- wean fio2 for goal spo2 > 90% -- Discontinued inhaled flolan 05/06 -- Follow-up chest x-ray and ABGs --Tolerating C Pap trials, possible extubation Cardiovascular: Acute Submassive Pulmonary Embolism Right Heart Dysfunction Global severe left ventricular systolic dysfunction Cardiogenic Shock -- high risk for sudden cardiac s/p acute PE -- Epinephrine discontinued 05/04 -- Maintain a goal MAP > 65 mmHg -- 2d echo 05/02: EF 30-35%, RV dysfunction with dilation --Repeat ECHO limited study scheduled on 05/09- F/U results Renal: Acute Kidney Injury -- likely secondary to cardiogenic shock - Nephrology following, Dr. Haley --Left IJ vas catheter placement-initiation of hemodialysis -- continue shepard with strict I/Os. --Hemodialysis per nephrology FEN/GI: Hyperphosphatemia Hyperkalemia Hypocalcemia Acute protein calorie malnutrition- severe Ileus -- per the echo from 05/08, intravascular volume status is appropriate -- 05/08 tube feeds on hold, G-tube to LIWS suction --General surgery following -GI consulted, appreciate recommendations -Expanded bowel regimen MiraLAX, lactulose, due to site suppository -Tube feeds placed on hold. NG tube to low intermittent wall suction due to ileus -Follow-up stat KUB -- PhosLo -- daily electrolytes, replete per ICU protocol Heme/ID Acute Large Cell B-cell lymphoma Pulmonary Embolism -- hematology/oncology following Dr. Connelly-tentative plan to resume CHOP therapy -- chemo on hold secondary to his acute life-threatening illnesses. -- continue heparin drip,Maintain goal PTT 60 - 80. Bolused with 200 units, and increased to 1200u/hr. Discussed with Dr. Yen. Will eventually transition to Coumadin Endocrine: Hyperglycemia of Critical Illness -- SSI, q6h, med scale Msk: --PT evaluation and treat --Multi-Podus boots --PT daily functional maintenance Prophylaxis: DVT: SCDs, heparin drip GI: protonix Lines: -- port right chest --Left IJ vas catheter, peripheral IVs 2 -- shepard Addendum: Patient tolerated C Pap trial, ordered extubation-patient extubated around 5:45 PM Minh Haywood MD May 10, 2017 17:54
[2017-05-10 19:20] LABS: APTT (PATIENT) 60.7 SEC (24.3-30.1)
[2017-05-11] VITALS (19 sets, daily range): BP systolic 105–151; BP diastolic 55–67; PULSE 86–101; RESP 18–39; TEMP 97.6–98.6; O2SAT 93–100
[2017-05-11] MEDS: ARTIFICIAL TEARS OPTH OINT 3.5 APPLIC/3.5 GM TUBO EACH EYE SCH ×3 (02:00→18:00)
[2017-05-11] MEDS: SUCRALFATE 1 GM/10 ML CUP PO SCH ×3 (06:00→22:01)
[2017-05-11] MEDS: INSULIN NovoLIN REGULAR SUPPLEMENTAL SCALE SQ SCH ×4 (06:00→18:00)
[2017-05-11 06:15] LABS: APTT (PATIENT) 62.3 SEC (24.3-30.1); BICARBONATE 27.1 MEQ/L (21.0-32.0)
[2017-05-11 06:17] LABS: AUTOMATED NEUTROPHIL # 19.3 TH/MM3 (1.8-7.7); BASOPHIL # 0.1 TH/MM3 (0-0.2); BASOPHIL % 0.3 % (0.0-2.0); EOSINOPHIL % 0.2 % (0.0-4.0); HEMATOCRIT 23.5 % (39.0-51.0); HEMO FLAGS DIFF FINAL; LYMPHOCYTE # 0.2 TH/MM3 (1.0-4.8); MEAN CORPUSCULAR HEMOGLOBIN 28.3 PG (27.0-34.0); MEAN CORPUSCULAR HGB CONC 33.4 % (32.0-36.0); MONO % 3.4 % (0.0-8.0); NEUT % 95.1 % (16.0-70.0); PLATELET COUNT 444 TH/MM3 (150-450); RED BLOOD COUNT 2.77 MIL/MM3 (4.50-5.90); RED CELL DISTRIBUTION WIDTH 16.5 % (11.6-17.2); WHITE BLOOD COUNT 20.3 TH/MM3 (4.0-11.0)
[2017-05-11 06:18] LABS: POTASSIUM 2.7 MEQ/L (3.5-5.1)
[2017-05-11] MEDS: CHLORHEXIDINE 0.12% (ORAL KIT) 15 ML CUP MT SCH ×2 (08:00→20:00)
[2017-05-11] MEDS ORDERED: POTASSIUM CHLOR 20 MEQ PREMIX 100 ML IV ONE (08:30)
[2017-05-11] MEDS: CALCIUM ACETATE 667 MG CAP PO SCH ×3 (08:35→18:28)
[2017-05-11] MEDS: ALLOPURINOL 100 MG TAB PO SCH (08:35)
[2017-05-11] MEDS: NIFEdipine 90 MG SUSTAINED RELEASE TAB PO SCH (08:35)
[2017-05-11] MEDS: PANTOPRAZOLE SODIUM 40 MG VIAL IV PUSH SCH (08:35)
[2017-05-11] MEDS: LACTULOSE SYRUP 20 GM/30 ML CUP PO SCH ×2 (09:00→21:00)
[2017-05-11] MEDS: DOCUSATE SODIUM 50 MG/SENNA 8.6 MG TAB PO SCH ×2 (09:00→21:00)
[2017-05-11] MEDS: POLYETHYLENE GLYCOL 17 GM PKG PO SCH (09:00)
--- NOTE | 2017-05-11 09:58 | MB ---
cc: TERRY MARADIAGA DO DATE OF CONSULTATION May 11, 2017 REASON FOR CONSULTATION Possible atrial level shunt. HISTORY OF PRESENT ILLNESS Jovani Werner is a pleasant 47-year-old male who originally presented to [facility] on April 18, 2017, due to abdominal pain, nausea and vomiting. During his workup for his nausea, vomiting and abdominal pain, he was found to have acute pancreatitis. During the workup for his acute pancreatitis he was found to have acute aggressive non-Hodgkin's lymphoma. It appears that on May 02, 2017, he became progressively short of breath and was transferred to the ICU. CT was done showing a large amount of pulmonary artery thrombus. An echocardiogram was done showing that the RV was dilated and hypo-contractile and the patient was given t-PA due to have a submassive PE. Since then he has been extubated and a repeat echo was done as he had a significant drop on his echo done during his acute pulmonary embolus. On the echo done on May 10, 2017, there was concern for a possible atrial level shunt, possibly due a PFO. In seeing him, he is currently hemodynamically stable, in no acute distress. PAST MEDICAL HISTORY 1. Acute non-Hodgkin's lymphoma. 2. Acute submassive pulmonary embolus status post t-PA (May 02, 2017). PAST SURGICAL HISTORY Denies. ALLERGIES No known drug allergies. MEDICATIONS Denies. FAMILY HISTORY Denies premature coronary artery disease or sudden cardiac within the family. SOCIAL HISTORY The patient smoked one-pack per day for many years, previously quitting in February. The patient previously drank an eight-pack of beer per day but quit in February. REVIEW OF SYSTEMS 14-systems were reviewed including osteopathic pertinent positives and negatives above, otherwise negative. PHYSICAL EXAMINATION VITAL SIGNS: Temperature 97.8, heart rate 92, blood pressure 132/61, respirations 20, pulse ox 99% on 2 liters. IN GENERAL: The patient appears well, in no acute distress, alert, awake and oriented x 3. Extraocular muscles intact. Mucous membranes moist. NECK: Supple. No JVD at 45 degrees. No carotid bruits heard bilaterally. Carotid upstroke is brisk in nature. HEART: Regular rate and rhythm. Positive first and second heart sounds with no noted murmurs, gallops or rubs. LUNGS: Decreased breath sounds at bilateral bases but no overt wheezes, rales or rhonchi. CHEST: Right chest has a Port-A-Cath in place. Left side of the chest has an IJ in place. ABDOMEN: Soft, nontender, nondistended. No organomegaly noted. EXTREMITIES: Trace edema bilaterally. Femoral and distal pulses intact bilaterally. NEUROLOGICALLY: No focal deficits. SKIN: Warm, dry and intact. OSTEOPATHIC EXAM: No kyphoscoliosis, lordosis or paraspinal tender points. LABORATORY FINDINGS Hemoglobin 7.9, hematocrit 23.5, platelets 444. An potassium 2.7, BUN 49, creatinine 7.13. ECHOCARDIOGRAM (May 10, 2017) Normal ejection fraction of 55-60%, mild concentric LVH, normal right ventricular size with normal right ventricular systolic function. Possible atrial level shunt demonstrated by color flow Doppler interrogation, possibly due to PFO. IMPRESSIONS 1. Possible PFO noted on echocardiogram with no current RV dilatation or systolic dysfunction. 1. Acute submassive pulmonary embolism status post t-PA (May 02, 2017). 2. Previous vent-dependent respiratory failure, recently extubated. 3. Cardiogenic shock secondary to acute submassive pulmonary embolism. 4. Acute kidney injury. 5. Acute large cell B-cell lymphoma. RECOMMENDATIONS 1. Mr. Dumonts appears to have responded well since his cardiogenic shock secondary to an acute pulmonary embolus requiring t-PA. 2. Repeat echo shows possible color flow across the atrial septum which may be due to a PFO. 3. He shows no RV dilatation or dysfunction if he does have a shunt at that level. 4. As far as this possible showing goes, he will continue on heparin and be transferred to Coumadin for his pulmonary embolus. After his time on anticoagulation, then he can be placed on a baby aspirin. 5. We will have to see how this hospitalization goes. We may consider JOSE LUIS for further definitive diagnosis of PFO or ASD versus possible flow along the septum due to venous blood return. Thank you for allowing me to see Jovani Werner. If there are any questions, please do not hesitate to call. Terry Maradiaga DO VGP/SSB /9:00 AM /9:36 AM
--- NOTE | 2017-05-11 10:53 | HHI.IDPN ---
Subjective Subjective Remarks Patient is a 47-year-old male, initially presented to the hospital complaining of abdominal pain, nausea, and vomiting. He was found to have pancreatitis, and he also had elevated liver function tests. There is history of previous alcohol abuse. He was also found to have a right base pneumonia, and he was started on a Zithromax and Rocephin. Patient also had some abnormality on his urinalysis and was also being treated for UTI. His imaging study showed right hilar mass, and he had evidence on exam of supraclavicular lymph nodes. CT of the chest revealed pleural effusion, and extensive mediastinal and axillary lymphadenopathy. 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 Oncology has been following the patient, and patient was started on chemotherapy on April 30. Patient's pancreatitis has improved although he still has some abdominal pain. He got Rituxan on on May 08, and he is currently getting Decadron, cyclophosphamide, as well as etoposide /Doxorubicin/Vincristine. This morning he went into respiratory failure, and transferred to the ICU, and ended up getting intubated. Pulmonary started seeing the patient around April 29 and at that time he had shortness of breath. He had bilateral pleural effusion, and underwent thoracentesis on the right, and the fluid is exudative. Patient had CTA today, and it showed pulmonary embolism, as well as no infiltrates on the right side. He is afebrile. Currently on the vent, and on sedation. Notes reviewed D/W RN Having a lot of diarrhea Has received multiple agents to have BM, since he was constipated previously For HD today He got [id number] yesterday On nasal O2 - sats 100% on RA Temps ok WBC up to 20 this morning Finished Abx 05/08 BP ok, off pressors Renal US no hydro Urine eos negative Echo with PFO Cardiology notes reviewed CT A/P noted Antibiotics None Lines [place] Past Medical History Previous tobacco and ETOH use Allergies: Coded Allergies: No Known Allergies (Unverified , 04/18/17) Objective . Vital Signs Date Time Temp Pulse Resp B/P Pulse Ox O2 Delivery O2 Flow Rate FiO2 05/11/17 10:00 90 05/11/17 10:00 90 28 112/60 96 05/11/17 09:00 86 18 105/57 97 7/31/17 08:00 94 05/11/17 08:00 97.6 88 26 117/64 100 05/11/17 07:31 99 Nasal Cannula 2.00 05/11/17 07:00 90 28 123/59 98 05/11/17 06:00 92 05/11/17 04:00 94 05/11/17 04:00 97.8 94 19 132/61 98 05/11/17 02:00 96 05/11/17 00:00 101 05/11/17 00:00 98.5 101 29 151/67 94 05/10/17 22:00 92 05/10/17 20:00 92 05/10/17 20:00 97.9 92 23 138/65 95 05/10/17 19:40 99 Nasal Cannula 2.00 05/10/17 18:00 87 05/10/17 17:45 98 Nasal Cannula 3 05/10/17 17:45 98 Nasal Cannula 3.00 05/10/17 16:03 99 35 05/10/17 16:00 99.1 79 16 121/63 98 05/10/17 16:00 35 05/10/17 16:00 79 05/10/17 14:00 81 05/10/17 12:58 96 35 05/10/17 12:00 98.9 84 15 120/68 95 05/10/17 12:00 40 05/10/17 12:00 84 05/10/17 10:51 40 05/10/17 10:51 96 40 05/10/17 05/10/17 05/11/17 14:59 22:59 06:59 Intake Total 375 ml 125 ml Output Total 50 ml Balance 325 ml 125 ml IV Total 375 ml 125 ml Output Urine Total 50 ml # Bowel Movements 1 3 . Laboratory Tests Test 05/10/17 05/11/17 03:31 05:34 White Blood Count 10.5 TH/MM3 20.3 TH/MM3 Red Blood Count 2.54 MIL/MM3 2.77 MIL/MM3 Hemoglobin 7.5 GM/DL 7.9 GM/DL Hematocrit 21.4 % 23.5 % Mean Corpuscular Volume 84.2 FL 85.0 FL Mean Corpuscular Hemoglobin 29.5 PG 28.3 PG Mean Corpuscular Hemoglobin 35.1 % 33.4 % Concent Red Cell Distribution Width 16.4 % 16.5 % Platelet Count 375 TH/MM3 444 TH/MM3 Mean Platelet Volume 7.4 FL 7.2 FL Neutrophils (%) (Auto) 95.1 % Lymphocytes (%) (Auto) 1.0 % Monocytes (%) (Auto) 3.4 % Eosinophils (%) (Auto) 0.2 % Basophils (%) (Auto) 0.3 % Neutrophils # (Auto) 19.3 TH/MM3 Lymphocytes # (Auto) 0.2 TH/MM3 Monocytes # (Auto) 0.7 TH/MM3 Eosinophils # (Auto) 0.0 TH/MM3 Basophils # (Auto) 0.1 TH/MM3 CBC Comment DIFF FINAL Differential Comment Laboratory Tests Test 05/10/17 05/11/17 03:31 05:34 Sodium Level 137 MEQ/L 136 MEQ/L Potassium Level 3.3 MEQ/L 2.7 MEQ/L Chloride Level 92 MEQ/L 90 MEQ/L Carbon Dioxide Level 29.2 MEQ/L 27.1 MEQ/L Anion Gap 16 MEQ/L 19 MEQ/L Blood Urea Nitrogen 43 MG/DL 49 MG/DL Creatinine 5.86 MG/DL 7.13 MG/DL Estimat Glomerular Filtration 13 ML/MIN 10 ML/MIN Rate Random Glucose 80 MG/DL 89 MG/DL Calcium Level 8.4 MG/DL 8.6 MG/DL Phosphorus Level 7.8 MG/DL 8.1 MG/DL Magnesium Level 2.2 MG/DL Albumin 1.8 GM/DL Imaging Chest X-Ray 05/10/17 0600 Signed Impressions: Service Date/Time: Wednesday, May 10, 2017 03:45 - CONCLUSION: Tubes and catheters are in good position. Bilateral pleural effusions persist. Right paratracheal stripe widening is unchanged Rinku Hillman MD Chest X-Ray 05/09/17 0600 Signed Impressions: Service Date/Time: Tuesday, May 09, 2017 03:15 - CONCLUSION: Perihilar vascular congestion with pleural effusions left greater than right. Tubes and catheters are in good position. Stable widening of the right paratracheal stripe Rinku Hillman MD Abdomen/Pelvis CT 05/09/17 0000 Signed Impressions: Service Date/Time: Tuesday, May 09, 2017 21:16 - CONCLUSION: 1. Diffusely distended loops of small bowel down to the cecum suggest ileus. 2. Evidence of mesenteric and retroperitoneal adenopathy. 3. Large bilateral pleural effusions , moderate amount of free fluid in the pelvis and mild ascites in the upper abdomen. 4. Abnormal appearance to the parenchyma of the right kidney with patchy areas of hyperdensity in a mosaic pattern. This of uncertain significance. The patient had iodinated contrast for a CT pulmonary angiogram 7 days ago; this could potentially represent residual parenchymal contrast which would be nonspecific, but raises the possibility of either obstruction or renal infarctions. Bryon Evans MD Last Impressions Chest X-Ray 05/03/17 0600 Signed Impressions: Service Date/Time: Wednesday, May 03, 2017 03:46 - CONCLUSION: Improving infiltrates. No Tacos Garcia MD Head CT 05/02/17 0000 Signed Impressions: Service Date/Time: Tuesday, May 02, 2017 16:45 - CONCLUSION: No acute intracranial disease. Tray Patel MD CT Angiography 05/02/17 0000 Signed Impressions: Service Date/Time: Tuesday, May 02, 2017 11:10 - CONCLUSION: 1. There is pulmonary embolus in the right pulmonary artery, right upper lobe and lower lobe branches. 2. Resorption of previously seen gas in the left axilla with fluid collection at this site with postprocedural change and possibly postprocedural hemorrhage not significantly changed in size. 3. Interval development of right lung airspace process may represent postobstructive pneumonia and there is mucus within the trachea not present yesterday. 4. Right pleural effusion is smaller and left pleural effusion is larger. 5. No change in bulky adenopathy. Leonor Chavez MD Upper Extremity Ultrasound 04/30/17 0000 Signed Impressions: Service Date/Time: April 12:25 - CONCLUSION: There some superficial thrombosis of a vein in the forearm. The deep venous system is patent. Large fluid collection left axilla. Significant soft tissue edema throughout the upper arm. Rinku Hillman MD Thoracentesis Ultrasound 04/30/17 0000 Signed Impressions: Service Date/Time: April 12:14 - CONCLUSION: Uncomplicated ultrasound guided thoracentesis. Tray Patel MD Port Line Insertion 04/27/17 0000 Signed Impressions: Service Date/Time: Thursday, April 27, 2017 14:56 - CONCLUSION: 1. Bulky bilateral lower cervical lymphadenopathy. 2. Uncomplicated ultrasound and fluoroscopic guided implanted central venous port catheter placement as described in detail above. An 8 [place] port was placed. Liang Peralta MD Bone Biopsy CT 04/27/17 0000 Signed Impressions: Service Date/Time: Thursday, April 27, 2017 16:22 - CONCLUSION: 1. Uncomplicated CT guided bone marrow aspirate. 2. Uncomplicated CT guided bone marrow biopsy. Tray Patel MD Chest CT 04/25/17 0000 Signed Impressions: Service Date/Time: Wednesday, April 26, 2017 19:00 - CONCLUSION: The right pleural effusion is slightly larger on the left side has not changed. Extensive bulky adenopathy as before and malignancies such as lymphoma is suspected. Leonor Chavez MD Gall Bladder Ultrasound 04/22/17 0000 Signed Impressions: Service Date/Time: Saturday, April 22, 2017 07:35 - CONCLUSION: Small liver with focal abdomen only incompletely evaluated. Large right pleural effusion. effusion. Kirk Briceño MD FACR Abdomen CT 04/20/17 0000 Signed Impressions: Service Date/Time: Thursday, April 20, 2017 19:40 - CONCLUSION: Limited exam because of lack of intravenous contrast. Lymphoma is suspected. Pathological diagnosis could be obtained with ultrasound biopsy of the cervical, axillary or inguinal adenopathy. Kirk Briceño MD FACR Physical Exam GENERAL: awake and responsive, not in respiratory distress. On nasal O2 SKIN: Warm and dry. No generalized rash, no ecchymoses and no evidence of embolic lesions. HEAD: Atraumatic. Normocephalic. No temporal wasting, or tenderness. EYES: [place] conjunctiva. No petechia or hemorrhage. Pupils equal, round and reactive to light. Has dirty sclera. No injection or drainage. EARS, NOSE AND THROAT: Nose without bleeding or purulent nasal discharge. Dry oral mucosa, poor dentition NECK: Trachea midline. Supple and not tender, no meningeal signs. Has significant lymphadenopathy. CARDIOVASCULAR: Regular rate and rhythm. No murmurs, rubs or gallops heard RESPIRATORY: Decreased BS at bases, with few rhonchi. Port look ok. ABDOMEN: Less distended, hypoactive bowel sounds, tympanitic, not tender. No guarding, no rebound EXTREMITIES: No clubbing, cyanosis, or edema. No joint effusion. Warm. Has very dry skin both feet. NEUROLOGICAL: Awake ands responding PSYCHIATRIC: Calm and cooperative LINE: Port and vascath with no evidence of infection. : Singh in place, urine looks clear Assessment & Plan Remarks IMPRESSION Respiratory failure, with multiple PE on R, has new infiltrates, ?PNA, ? infarct - PE on R and infiltrates on R - extubated 05/10, seems to be doing well Has Tomi effusions, tap is exudative, ?lymphoma New NHL, has received some chemo Pancreatitis, and elevated LFT likely due to ETOH, stable Acute renal failure, ?sepsis, ?contrast Ileus, now with diarrhea Leukocytosis RECOMMENDATION UA and C/S C diff Start Flagyl Follow CBC Monitor temps Monitor progress Getting HD per renal, has had 2 HD D/W Maggy Honeycutt MD May 11, 2017 10:53
[2017-05-11] MEDS: HEPARIN-D5W 25,000 U/250 ML 250 ML IV SCH (11:20)
--- NOTE | 2017-05-11 13:11 | HHI.CCPN ---
Subjective Remarks/Hospital Course Hospital Course: This is a 47yM who was originally admitted for acute pancreatitis and during this hospital admission found to have an acute aggressive non-hodgkin's lymphoma. he has had progressive shortness of breath secondary to bilateral pleural effusions and adenopathy. He rapid responsed today for worsening hypoxemia on a NRB and in severe respiratory distress. When I evaluated the patient on arrival to the [facility], he is in severe respiratory distress, unable to speak, RR > 40, spo2 92% on NRB, using accessory muscles. CXR without over fluid overload. additional information is unobtainable secondary to the clinical condition of the patient. Subjective: 05/03: TPA given overnight. started on heparin drip after. this morning, oligoaneuric with Cr rise to 3.3 this AM. also more hypotensive, although fio2 significantly improved to 45%. bilateral pleural effusions persist. echo yesterday with biventricular dysfunction. hgb stable. 05/04:Flolan decreased to 20 from 30 ngs. Slight improvement in chest x-ray. Epinephrine infusion currently being weaned . Nephrology consulted secondary to continue rising creatinine. 05/05: Hemodynamically stable, epinephrine weaned off yesterday. Nephrology following Dr. Haley with plans for possible dialysis tomorrow. Discussed with hematology oncology plan for reinitiation of chemotherapy with initiation of dialysis. Respiratory system with Flolan decrease stable. Plan to decrease Flolan to 10 ng, with potential for cessation in a.m.. 05/06: No acute issues overnight. Attempts at CPAP trials unsuccessful yesterday. Vascular catheter placement this a.m.. Plan for dialysis today. ABGs obtained, Flolan discontinued today. Possible plan for reinitiation of chemotherapy. 05/07: Overnight the patient was noted to have emesis, and large residual tube feeds. Reglan 10 mg every 8 hours initiated today. Will reinitiate tube feeds at trickle 10 cc/hour. CPAP trials initiated, the patient tolerated CPAP for approximately 3 hours today. Hemodialysis initiated yesterday 2 L off, plan for 2 L removal today. The patient oxygen level maintained, will continue to wean. Repeat echo planned for Thursday, 1 week post TPA. 05/08: The patient successfully went through CPAP trials 3-4 hours yesterday. CPAP trials continue today. The patient was noted to have emesis approximately 2 L over the last 24 hours, despite initiation of her prokinetic, Reglan. Reglan discontinued KUB ordered results pending this a.m.. Bowel regimen expanded. The patient underwent hemodialysis with approximately 2 L removed yesterday. 05/09: The patient remains subtherapeutic on Heparin infusion protocol, PTT 37.2 , per Hematology minimal acceptable range PTT 60. The patient was bolused with Heparin 200units and increased to 1200units. Pending limited ECHO study to evaluate RV strain, Pulm HTN and LV function. New labs pending. Ileus vs possible bowel obstruction, approximately 1100 cc gastric contents overnight. Plan for CT abdomen with PO contrast only 2/2 acute renal failure. 05/10: Jolene orally intubated on mechanical ventilation. Undergoing C Pap trials. 05/11: Extubated on 05/10. On nasal cannula 2 L/m. Awake and alert, following commands this morning. Complains of some shortness of breath. CT abdomen and pelvis done on 05/09 concerning for ileus versus SBO. GI predisposed towards diagnosis of SBO versus ileus. Patient has diarrhea secondary to C. difficile. Objective Vital Signs Date Time Temp Pulse Resp B/P Pulse Ox O2 Delivery O2 Flow Rate FiO2 05/11/17 12:00 97.6 86 32 112/58 93 05/11/17 07:31 Nasal Cannula 2.00 05/10/17 16:03 35 Intake and Output 05/10/17 05/10/17 05/11/17 08:00 16:00 00:00 Intake Total 331 ml 375 ml Output Total 750 ml 50 ml Balance -419 ml 325 ml Result Diagram: 05/11/17 0534 05/11/17 0534 Imaging Last Impressions Chest X-Ray 05/06/17 0000 Signed Impressions: Service Date/Time: Saturday, May 06, 2017 12:00 - CONCLUSION: 1. Vas-Cath in good position without pneumothorax. Kirk Briceño MD FACR Renal Ultrasound 05/05/17 0000 Signed Impressions: Service Date/Time: Friday, May 05, 2017 20:06 - CONCLUSION: 1. Kidneys are borderline echogenic which can be seen with medical renal disease. 2. No evidence of hydronephrosis. 3. Abdominal ascites. 4. Multiple dilated bowel loops. 5. Bilateral pleural effusions. Tray Patel MD Head CT 05/03/17 0000 Signed Impressions: Service Date/Time: Wednesday, May 03, 2017 17:22 - CONCLUSION: No acute intracranial disease. No hemorrhage seen. Tray Patel MD CT Angiography 05/02/17 0000 Signed Impressions: Service Date/Time: Tuesday, May 02, 2017 11:10 - CONCLUSION: 1. There is pulmonary embolus in the right pulmonary artery, right upper lobe and lower lobe branches. 2. Resorption of previously seen gas in the left axilla with fluid collection at this site with postprocedural change and possibly postprocedural hemorrhage not significantly changed in size. 3. Interval development of right lung airspace process may represent postobstructive pneumonia and there is mucus within the trachea not present yesterday. 4. Right pleural effusion is smaller and left pleural effusion is larger. 5. No change in bulky adenopathy. Leonor Chavez MD Upper Extremity Ultrasound 04/30/17 0000 Signed Impressions: Service Date/Time: April 12:25 - CONCLUSION: There some superficial thrombosis of a vein in the forearm. The deep venous system is patent. Large fluid collection left axilla. Significant soft tissue edema throughout the upper arm. Rinku Hillman MD Thoracentesis Ultrasound 04/30/17 0000 Signed Impressions: Service Date/Time: April 12:14 - CONCLUSION: Uncomplicated ultrasound guided thoracentesis. Tray Patel MD Port Line Insertion 04/27/17 0000 Signed Impressions: Service Date/Time: Thursday, April 27, 2017 14:56 - CONCLUSION: 1. Bulky bilateral lower cervical lymphadenopathy. 2. Uncomplicated ultrasound and fluoroscopic guided implanted central venous port catheter placement as described in detail above. An 8 [employer] port was placed. Liang Peralta MD Bone Biopsy CT 04/27/17 0000 Signed Impressions: Service Date/Time: Thursday, April 27, 2017 16:22 - CONCLUSION: 1. Uncomplicated CT guided bone marrow aspirate. 2. Uncomplicated CT guided bone marrow biopsy. Tray Patel MD Chest CT 04/25/17 0000 Signed Impressions: Service Date/Time: Wednesday, April 26, 2017 19:00 - CONCLUSION: The right pleural effusion is slightly larger on the left side has not changed. Extensive bulky adenopathy as before and malignancies such as lymphoma is suspected. Leonor Chavez MD Gall Bladder Ultrasound 04/22/17 0000 Signed Impressions: Service Date/Time: Saturday, April 22, 2017 07:35 - CONCLUSION: Small liver with focal abdomen only incompletely evaluated. Large right pleural effusion. effusion. Kirk Briceño MD FACR Abdomen CT 04/20/17 0000 Signed Impressions: Service Date/Time: Thursday, April 20, 2017 19:40 - CONCLUSION: Limited exam because of lack of intravenous contrast. Lymphoma is suspected. Pathological diagnosis could be obtained with ultrasound biopsy of the cervical, axillary or inguinal adenopathy. Kirk Briceño MD FACR Last Impressions Chest X-Ray 05/03/17 0600 Signed Impressions: Service Date/Time: Wednesday, May 03, 2017 03:46 - CONCLUSION: Improving infiltrates. No Tacos Garcia MD Head CT 05/03/17 0000 Signed Impressions: Service Date/Time: Wednesday, May 03, 2017 17:22 - CONCLUSION: No acute intracranial disease. No hemorrhage seen. Tray Patel MD CT Angiography 05/02/17 0000 Signed Impressions: Service Date/Time: Tuesday, May 02, 2017 11:10 - CONCLUSION: 1. There is pulmonary embolus in the right pulmonary artery, right upper lobe and lower lobe branches. 2. Resorption of previously seen gas in the left axilla with fluid collection at this site with postprocedural change and possibly postprocedural hemorrhage not significantly changed in size. 3. Interval development of right lung airspace process may represent postobstructive pneumonia and there is mucus within the trachea not present yesterday. 4. Right pleural effusion is smaller and left pleural effusion is larger. 5. No change in bulky adenopathy. Leonor Chavez MD Upper Extremity Ultrasound 04/30/17 0000 Signed Impressions: Service Date/Time: April 12:25 - CONCLUSION: There some superficial thrombosis of a vein in the forearm. The deep venous system is patent. Large fluid collection left axilla. Significant soft tissue edema throughout the upper arm. Rinku Hillman MD Thoracentesis Ultrasound 04/30/17 0000 Signed Impressions: Service Date/Time: April 12:14 - CONCLUSION: Uncomplicated ultrasound guided thoracentesis. Tray Patel MD Port Line Insertion 04/27/17 0000 Signed Impressions: Service Date/Time: Thursday, April 27, 2017 14:56 - CONCLUSION: 1. Bulky bilateral lower cervical lymphadenopathy. 2. Uncomplicated ultrasound and fluoroscopic guided implanted central venous port catheter placement as described in detail above. An 8 [employer] port was placed. Liang Peralta MD Bone Biopsy CT 04/27/17 Signed Impressions: Service Date/Time: Thursday, April 27, 2017 16:22 - CONCLUSION: 1. Uncomplicated CT guided bone marrow aspirate. 2. Uncomplicated CT guided bone marrow biopsy. Tray Patel MD Chest CT 04/25/17 0000 Signed Impressions: Service Date/Time: Wednesday, April 26, 2017 19:00 - CONCLUSION: The right pleural effusion is slightly larger on the left side has not changed. Extensive bulky adenopathy as before and malignancies such as lymphoma is suspected. Leonor Chavez MD Gall Bladder Ultrasound 04/22/17 0000 Signed Impressions: Service Date/Time: Saturday, April 22, 2017 07:35 - CONCLUSION: Small liver with focal abdomen only incompletely evaluated. Large right pleural effusion. effusion. Kirk Briceño MD FACR Abdomen CT 04/20/17 Signed Impressions: Service Date/Time: Thursday, April 20, 2017 19:40 - CONCLUSION: Limited exam because of lack of intravenous contrast. Lymphoma is suspected. Pathological diagnosis could be obtained with ultrasound biopsy of the cervical, axillary or inguinal adenopathy. Kirk Briceño MD FACR Last Impressions Chest X-Ray 05/02/17 0000 Signed Impressions: Service Date/Time: Tuesday, May 02, 2017 08:11 - CONCLUSION: There is mild improvement in aeration of the right lower lung, otherwise not significantly changed. Leonor Chavez MD Upper Extremity Ultrasound 04/30/17 0000 Signed Impressions: Service Date/Time: April 12:25 - CONCLUSION: There some superficial thrombosis of a vein in the forearm. The deep venous system is patent. Large fluid collection left axilla. Significant soft tissue edema throughout the upper arm. Rinku Hillman MD Thoracentesis Ultrasound 04/30/17 0000 Signed Impressions: Service Date/Time: April 12:14 - CONCLUSION: Uncomplicated ultrasound guided thoracentesis. Tray Patel MD Port Line Insertion 04/27/17 0000 Signed Impressions: Service Date/Time: Thursday, April 27, 2017 14:56 - CONCLUSION: 1. Bulky bilateral lower cervical lymphadenopathy. 2. Uncomplicated ultrasound and fluoroscopic guided implanted central venous port catheter placement as described in detail above. An 8 [employer] port was placed. Liang Peralta MD Bone Biopsy CT 04/27/17 0000 Signed Impressions: Service Date/Time: Thursday, April 27, 2017 16:22 - CONCLUSION: 1. Uncomplicated CT guided bone marrow aspirate. 2. Uncomplicated CT guided bone marrow biopsy. Tray Patel MD Chest CT 04/25/17 0000 Signed Impressions: Service Date/Time: Wednesday, April 26, 2017 19:00 - CONCLUSION: The right pleural effusion is slightly larger on the left side has not changed. Extensive bulky adenopathy as before and malignancies such as lymphoma is suspected. Leonor Chavez MD Gall Bladder Ultrasound 04/22/17 0000 Signed Impressions: Service Date/Time: Saturday, April 22, 2017 07:35 - CONCLUSION: Small liver with focal abdomen only incompletely evaluated. Large right pleural effusion. effusion. Kirk Briceño MD FACR Abdomen CT 04/20/17 0000 Signed Impressions: Service Date/Time: Thursday, April 20, 2017 19:40 - CONCLUSION: Limited exam because of lack of intravenous contrast. Lymphoma is suspected. Pathological diagnosis could be obtained with ultrasound biopsy of the cervical, axillary or inguinal adenopathy. Kirk Briceño MD FACR Objective Remarks GENERAL: Well-nourished well-developed middle-aged male, lying in bed on nasal cannula HEENT: perrl. mucous membranes moist NECK: no jvd. trachea midline orotracheally intubated PULM: Right chest Port-A-Cath in situ, clear to auscultation. equal chest rise. Left IJ vas catheter CV: Regular, regular rhythm. No murmurs rubs or gallops ABD: soft, nontender, nondistended. no guarding. EXTREMITIES: trace peripheral edema. distal pulses 2+ NEURO: Awake, alert, following commands. Movement of extremities x 4 Procedures 04/[address] excision biopsy 04/27- port placement 05/02-TPA 05/06-left IJ Vas-Cath placement A/P Assessment and Plan Assessment: 47yM with aggressive large B cell lymphoma, acute pancreatitis, with submassive PE, acute cardiogenic shock, acute hypoxic respiratory failure, now oligoaneuric acute kidney injury secondary to shock. Off epinephrine gtt and inhaled flolan. Extubated on 05/10, May need drainage of his pleural effusions Plan by Systems: Neuro: --Off all sedation. Follow neuro status -- repeat head on 05/03 CT 24h after TPA-no abnormality Respiratory: Acute Hypoxic Respiratory Failure Acute Submassive Pulmonary Embolism Bilateral pleural effusions, large, acute --Every 6 hours scheduled nebs -- wean fio2 for goal spo2 > 90% -- Discontinued inhaled flolan 05/06 -- Follow-up chest x-ray and ABGs --Tolerated C Pap trial and was extubated on 05/10. Remains on nasal cannula. Cardiovascular: Acute Submassive Pulmonary Embolism Right Heart Dysfunction Global severe left ventricular systolic dysfunction Cardiogenic Shock -- high risk for sudden cardiac s/p acute PE -- Epinephrine discontinued 05/04 -- Maintain a goal MAP > 65 mmHg -- 2d echo 05/02: EF 30-35%, RV dysfunction with dilation --Repeat ECHO limited study scheduled on 05/09-RV function appears to have normalized, question of interatrial shunt for which cardiology consulted. Renal: Acute Kidney Injury -- likely secondary to cardiogenic shock - Nephrology following, Dr. Haley --Left IJ vas catheter placement-initiation of hemodialysis -- continue shepard with strict I/Os. --Hemodialysis per nephrology FEN/GI: Hyperphosphatemia Hyperkalemia Hypocalcemia Acute protein calorie malnutrition- severe Ileus -- per the echo from 05/08, intravascular volume status is appropriate -- 05/08 tube feeds on hold, G-tube to LIWS suction the patient extubated on at which time OG tube was removed --General surgery to follow up on ileus versus SBO. -GI consulted, appreciate recommendations -Expanded bowel regimen MiraLAX, lactulose, due to site suppository -Tube feeds placed on hold. NG tube to low intermittent wall suction due to ileus . 05/11 evening. OG tube removed with extubation on 05/11. -- PhosLo -- daily electrolytes, replete per ICU protocol Heme/ID Acute Large Cell B-cell lymphoma Pulmonary Embolism -- hematology/oncology following Dr. Connelly-tentative plan to resume CHOP therapy -- chemo on hold secondary to his acute life-threatening illnesses. Journal Entry Audit Clerk to decide regarding initiation of chemotherapy for lymphoma. -- continue heparin drip,Maintain goal PTT 60 - 80. Bolused with 200 units, and increased to 1200u/hr. Discussed with Dr. Yen. Will eventually transition to Coumadin Endocrine: Hyperglycemia of Critical Illness -- SSI, q6h, med scale Msk: --PT evaluation and treat --Multi-Podus boots --PT daily functional maintenance Prophylaxis: DVT: SCDs, heparin drip GI: protonix Lines: -- port right chest --Left IJ vas catheter, peripheral IVs 2 -- Minh Eric MD May 11, 2017 13:11
--- NOTE | 2017-05-11 13:33 | PD.ONC.PN ---
Subjective Subjective Remarks Afebrile overnight. Extubated over the weekend. Still a bit groggy. Mother and sister at bedside. c/o stomach pain, per nurse he has been having diarrhea. Objective Data Date Time Temp Pulse Resp B/P Pulse Ox O2 Delivery O2 Flow Rate FiO2 05/11/17 12:00 97.6 86 32 112/58 93 05/11/17 12:00 86 05/11/17 11:00 88 22 112/61 94 05/11/17 10:00 90 05/11/17 10:00 90 28 112/60 96 05/11/17 09:00 86 18 105/57 97 05/11/17 08:00 94 05/11/17 08:00 97.6 88 26 117/64 100 05/11/17 07:31 99 Nasal Cannula 2.00 05/11/17 07:00 90 28 123/59 98 05/11/17 06:00 92 05/11/17 04:00 94 05/11/17 04:00 97.8 94 19 132/61 98 05/11/17 02:00 96 05/11/17 00:00 101 05/11/17 00:00 98.5 101 29 151/67 94 05/10/17 22:00 92 05/10/17 20:00 92 05/10/17 20:00 97.9 92 23 138/65 95 05/10/17 19:40 99 Nasal Cannula 2.00 05/10/17 18:00 87 05/10/17 17:45 98 Nasal Cannula 3 05/10/17 17:45 98 Nasal Cannula 3.00 05/10/17 16:03 99 35 05/10/17 16:00 99.1 79 16 121/63 98 05/10/17 16:00 35 05/10/17 16:00 79 05/10/17 14:00 81 05/11/17 05/11/17 05/11/17 07:00 15:00 23:00 Intake Total 125 ml Balance 125 ml Result Diagram: 05/11/17 0534 05/11/17 0534 Laboratory Results Laboratory Tests Test 05/10/17 05/11/17 18:08 05:34 Activated Partial 60.7 SEC 62.3 SEC Thromboplast Time White Blood Count 20.3 TH/MM3 Red Blood Count 2.77 MIL/MM3 Hemoglobin 7.9 GM/DL Hematocrit 23.5 % Mean Corpuscular Volume 85.0 FL Mean Corpuscular Hemoglobin 28.3 PG Mean Corpuscular Hemoglobin 33.4 % Concent Red Cell Distribution Width 16.5 % Platelet Count 444 TH/MM3 Mean Platelet Volume 7.2 FL Neutrophils (%) (Auto) 95.1 % Lymphocytes (%) (Auto) 1.0 % Monocytes (%) (Auto) 3.4 % Eosinophils (%) (Auto) 0.2 % Basophils (%) (Auto) 0.3 % Neutrophils # (Auto) 19.3 TH/MM3 Lymphocytes # (Auto) 0.2 TH/MM3 Monocytes # (Auto) 0.7 TH/MM3 Eosinophils # (Auto) 0.0 TH/MM3 Basophils # (Auto) 0.1 TH/MM3 CBC Comment DIFF FINAL Differential Comment Sodium Level 136 MEQ/L Potassium Level 2.7 MEQ/L Chloride Level 90 MEQ/L Carbon Dioxide Level 27.1 MEQ/L Anion Gap 19 MEQ/L Blood Urea Nitrogen 49 MG/DL Creatinine 7.13 MG/DL Estimat Glomerular Filtration 10 ML/MIN Rate Random Glucose 89 MG/DL Calcium Level 8.6 MG/DL Phosphorus Level 8.1 MG/DL Albumin 1.8 GM/DL Administered Medications Medications (Trade) Dose Ordered Sig/Shyla Route PRN Reason Start Time Stop Time Status Last Admin Dose Admin Sodium Chloride (NS Flush) 2 ml UNSCH PRN IV FLUSH FLUSH AFTER USING IV ACCESS 04/18/17 17:30 04/21/17 22:27 Senna/Docusate Sodium (Porsha-Colace) 1 tab BID PO 04/18/17 21:00 05/10/17 07:52 Magnesium Hydroxide (Milk Of Magnesia Liq) 30 ml Q12H PRN PO MILD - MODERATE CONSTIPATION 04/18/17 19:30 05/09/17 08:01 Heparin Sodium (Porcine) (Heparin Inj) 5,000 units Q8HR SQ 04/19/17 14:00 Hold 05/02/17 12:46 Hydralazine HCl (Apresoline Inj) 10 mg Q6HR PRN IV PUSH SBP>160, DBP>90 04/21/17 17:00 04/27/17 10:15 Nifedipine (Procardia Xl) 90 mg DAILY PO 04/28/17 09:00 05/11/17 08:35 Clonidine (Catapres) 0.1 mg Q6H PRN PO SBP>160, DBP>90 04/27/17 15:00 04/29/17 08:07 Ondansetron HCl (Zofran Inj) 4 mg Q6HR PRN IV PUSH NAUSEA OR VOMITING 04/30/17 11:30 05/07/17 10:06 Promethazine HCl (Phenergan Inj) 25 mg Q6H PRN IM NAUSEA OR VOMITING 04/30/17 11:30 05/01/17 13:27 Acetaminophen/ Hydrocodone Bitart (Swink 5-325 Mg) 1 tab Q6H PRN PO PAIN SCALE 1 TO 10 04/30/17 11:30 05/01/17 05:15 Insulin Human Regular (NovoLIN R SUPPLEMENTAL SCALE) 1 Q6HR SQ 05/02/17 12:00 05/04/17 18:00 Chlorhexidine Gluconate 15 ml 15 ml BID@08,20 MT 05/02/17 20:00 05/10/17 07:52 Fentanyl Citrate 250 ml @ 0 mls/hr TITRATE IV 05/02/17 10:00 05/10/17 05:36 Propofol (Diprivan 1000 Mg/100ml Inj) 100 ml @ 0 mls/hr TITRATE IV 05/02/17 10:00 05/10/17 06:54 Miscellaneous Information Patient in critical care unit? Ass... [id number] .XX 05/02/17 17:15 05/02/17 17:30 Heparin Sodium/ Dextrose (Heparin-D5W Inj) 250 ml @ 0 mls/hr TITRATE IV 05/03/17 02:00 05/11/17 11:20 Calcium Acetate (Phoslo) 2,668 mg TID PO 05/03/17 09:00 05/11/17 08:35 Allopurinol (Zyloprim) 200 mg DAILY PO 05/06/17 09:00 05/11/17 08:35 Pantoprazole Sodium (Protonix Inj) 40 mg DAILY IV PUSH 05/07/17 12:00 05/11/17 08:35 Artificial Tears 1 applic 1 applic Q8H EACH EYE 05/07/17 18:00 05/11/17 10:44 Sodium Chloride (NS 1000 ml Inj) 1,000 ml @ 0 mls/hr TITRATE PRN IV WITH DIALYSIS 05/07/17 18:00 05/09/17 13:29 Gentamicin Sulfate (Gentamicin (Dialysis) Inj) 10 mg UNSCH PRN OTHER WITH DIALYSIS 05/07/17 18:00 05/09/17 13:28 Polyethylene Glycol (Miralax) 17 gm DAILY PO 05/08/17 09:00 05/10/17 07:52 Lactulose (Lactulose Liq) 30 ml BID PO 05/08/17 09:00 05/10/17 07:51 Sucralfate (Carafate Liq) 1 gm Q8HR PO 05/10/17 14:00 05/13/17 13:59 05/10/17 16:19 Objective Remarks GENERAL: chronically ill appearing male lying in bed in nad. mother and sister at bedside. SKIN: Warm and dry. RIJ in place. vas-cath in place. HEAD: Normocephalic. EYES: No injection or drainage. NECK: Supple, trachea midline. CARDIOVASCULAR: +S1/S2 RESPIRATORY: anterior canas clear. on mechanical ventilation. GASTROINTESTINAL: Abdomen soft, tender to palpation throughout EXTREMITIES: No cyanosis. extremities with edema. NEUROLOGICAL: awake alert and oriented. slow with responses. lethargic. Assessment/Plan Problem List: (1) Pulmonary emboli Status: Acute Plan: --CTA showed large PE --s/p tpa therapy on 05.02. now on heparin gtt. (2) Non-Hodgkin lymphoma Status: Acute Plan: --remains critically ill; no further chemo until stable. Assessment 47y/o male admitted with pancreatitis, found to have NHL. Given Rituxan on 05.01 and developed massive PE on and went into cardiogenic shock with renal failure. Now critically ill in [facility]. s/p thrombolytic therapy Plan 1. Continue heparin gtt 2. may consider giving CHOP chemotherapy soon if improves clinically Attending Statement The exam, history, and the medical decision-making described in the above note were completed with the assistance of the mid-level provider. I reviewed and agree with the findings presented. I attest that I had a [id number] encounter with the patient on the same day, and personally performed and documented my assessment and findings in the medical record. Pt is extubated. Still very weak. Renal function has not recover. Continue HD and supportive care. Plan to treat him with CHOP at renal dose once he is more stable. Problem Qualifiers (1) Non-Hodgkin lymphoma: Brenda Platt May 11, 2017 13:33 Ruslan Connelly MD May 11, 2017 15:21
[2017-05-11] MEDS: metroNIDAZOLE 500 MG TAB PO SCH ×2 (13:57→22:06)
[2017-05-11] MEDS: ACETAMINOPHEN/HYDROcodone 325 MG/5 MG TAB PO PRN (15:20)
--- NOTE | 2017-05-11 15:53 | HHI.PR ---
Subjective Subjective Notes Resting in bed Able to answer yes and no questions Just finished sessions of HD Objective Vitals/I&O Vital Signs Date Time Temp Pulse Resp B/P Pulse Ox O2 Delivery O2 Flow Rate FiO2 05/11/17 14:00 90 05/11/17 12:00 97.6 32 112/58 93 05/11/17 07:31 Nasal Cannula 2.00 05/10/17 16:03 35 Labs Laboratory Tests Test 05/10/17 05/11/17 18:08 05:34 Activated Partial 60.7 62.3 Thromboplast Time White Blood Count 20.3 Red Blood Count 2.77 Hemoglobin 7.9 Hematocrit 23.5 Mean Corpuscular Volume 85.0 Mean Corpuscular Hemoglobin 28.3 Mean Corpuscular Hemoglobin 33.4 Concent Red Cell Distribution Width 16.5 Platelet Count 444 Mean Platelet Volume 7.2 Neutrophils (%) (Auto) 95.1 Lymphocytes (%) (Auto) 1.0 Monocytes (%) (Auto) 3.4 Eosinophils (%) (Auto) 0.2 Basophils (%) (Auto) 0.3 Neutrophils # (Auto) 19.3 Lymphocytes # (Auto) 0.2 Monocytes # (Auto) 0.7 Eosinophils # (Auto) 0.0 Basophils # (Auto) 0.1 CBC Comment DIFF FINAL Differential Comment Sodium Level 136 Potassium Level 2.7 Chloride Level 90 Carbon Dioxide Level 27.1 Anion Gap 19 Blood Urea Nitrogen 49 Creatinine 7.13 Estimat Glomerular Filtration 10 Rate Random Glucose 89 Calcium Level 8.6 Phosphorus Level 8.1 Albumin [address] scan was obtained which shows diffuse adenopathy in the neck, thorax and abdomen. Cardiovascular: Regular Lungs: Clear Abdomen: Other (mildly distended; minimally tender ) Extremities: Other (see below ) Narrative Exam LEFT BE edema BLE edema A/P Assessment and Plan 47 year old male re-consult to for ileus vs SBO -Pathology shows diffuse large B cell lymphoma -NPO -Insert NGT if nausea/vomiting occur -Likely ileus due to multiple acute medical issues +BM -KUB in AM Toshia Quinteros MOUNTAIN GUIDE May 11, 2017 15:53
--- NOTE | 2017-05-11 16:02 | HHI.GIFU ---
Subjective Remarks Pt resting in bed in no apparent distress. Admits some abd pain. Having liquid stool. Denies nausea. Denies abd pain. (Freya Figueroa) Objective Vitals I&O Vital Signs Date Time Temp Pulse Resp B/P Pulse Ox O2 Delivery O2 Flow Rate FiO2 05/11/17 14:00 90 05/11/17 12:00 97.6 86 32 112/58 93 05/11/17 12:00 86 05/11/17 11:00 88 22 112/61 94 05/11/17 10:00 90 05/11/17 10:00 90 28 112/60 96 05/11/17 09:00 86 18 105/57 97 05/11/17 08:00 94 05/11/17 08:00 97.6 88 26 117/64 100 05/11/17 07:31 99 Nasal Cannula 2.00 05/11/17 07:00 90 28 123/59 98 05/11/17 06:00 92 05/11/17 04:00 94 05/11/17 04:00 97.8 94 19 132/61 98 05/11/17 02:00 96 05/11/17 00:00 101 05/11/17 00:00 98.5 101 29 151/67 94 05/10/17 22:00 92 05/10/17 20:00 92 05/10/17 20:00 97.9 92 23 138/65 95 05/10/17 19:40 99 Nasal Cannula 2.00 05/10/17 18:00 87 05/10/17 17:45 98 Nasal Cannula 3 05/10/17 17:45 98 Nasal Cannula 3.00 05/10/17 16:03 99 35 05/10/17 16:00 99.1 79 16 121/63 98 05/10/17 16:00 35 05/10/17 16:00 79 I/O 05/10/17 05/10/17 05/10/17 05/11/17 05/11/17 05/11/17 06:59 14:59 22:59 06:59 14:59 22:59 Intake Total 331 ml 375 ml 125 ml 259 ml Output Total 750 ml 50 ml Balance -419 ml 325 ml 125 ml 259 ml IV Total 331 ml 375 ml 125 ml 259 ml Output Urine Total 50 ml 50 ml Gastric Drainage Total 700 ml # Voids 1 # Bowel Movements 1 3 4 Laboratory Laboratory Tests Test 05/10/17 05/11/17 18:08 05:34 Activated Partial 60.7 62.3 Thromboplast Time White Blood Count 20.3 Red Blood Count 2.77 Hemoglobin 7.9 Hematocrit 23.5 Mean Corpuscular Volume 85.0 Mean Corpuscular Hemoglobin 28.3 Mean Corpuscular Hemoglobin 33.4 Concent Red Cell Distribution Width 16.5 Platelet Count 444 Mean Platelet Volume 7.2 Neutrophils (%) (Auto) 95.1 Lymphocytes (%) (Auto) 1.0 Monocytes (%) (Auto) 3.4 Eosinophils (%) (Auto) 0.2 Basophils (%) (Auto) 0.3 Neutrophils # (Auto) 19.3 Lymphocytes # (Auto) 0.2 Monocytes # (Auto) 0.7 Eosinophils # (Auto) 0.0 Basophils # (Auto) 0.1 CBC Comment DIFF FINAL Differential Comment Sodium Level 136 Potassium Level 2.7 Chloride Level 90 Carbon Dioxide Level 27.1 Anion Gap 19 Blood Urea Nitrogen 49 Creatinine 7.13 Estimat Glomerular Filtration 10 Rate Random Glucose 89 Calcium Level 8.6 Phosphorus Level 8.1 Albumin 1.8 Imaging Last Impressions Chest X-Ray 05/10/17 0600 Signed Impressions: Service Date/Time: Wednesday, May 10, 2017 03:45 - CONCLUSION: Tubes and catheters are in good position. Bilateral pleural effusions persist. Right paratracheal stripe widening is unchanged Rinku Hillman MD Abdomen/Pelvis CT 05/09/17 0000 Signed Impressions: Service Date/Time: Tuesday, May 09, 2017 21:16 - CONCLUSION: 1. Diffusely distended loops of small bowel down to the cecum suggest ileus. 2. Evidence of mesenteric and retroperitoneal adenopathy. 3. Large bilateral pleural effusions , moderate amount of free fluid in the pelvis and mild ascites in the upper abdomen. 4. Abnormal appearance to the parenchyma of the right kidney with patchy areas of hyperdensity in a mosaic pattern. This of uncertain significance. The patient had iodinated contrast for a CT pulmonary angiogram 7 days ago; this could potentially represent residual parenchymal contrast which would be nonspecific, but raises the possibility of either obstruction or renal infarctions. Bryon Evans MD Abdomen X-Ray 05/08/17 0000 Signed Impressions: Service Date/Time: Monday, May 08, 2017 07:04 - CONCLUSION: 1. Air-filled mildly dilated loops of small bowel suggesting ileus or partial small bowel obstruction. Clinical correlation is commended. Fidel Isaac MD Renal Ultrasound 05/05/17 0000 Signed Impressions: Service Date/Time: Friday, May 05, 2017 20:06 - CONCLUSION: 1. Kidneys are borderline echogenic which can be seen with medical renal disease. 2. No evidence of hydronephrosis. 3. Abdominal ascites. 4. Multiple dilated bowel loops. 5. Bilateral pleural effusions. Tray Patel MD Head CT 05/03/17 0000 Signed Impressions: Service Date/Time: Wednesday, May 03, 2017 17:22 - CONCLUSION: No acute intracranial disease. No hemorrhage seen. Tray Patel MD CT Angiography 05/02/17 0000 Signed Impressions: Service Date/Time: Tuesday, May 02, 2017 11:10 - CONCLUSION: 1. There is pulmonary embolus in the right pulmonary artery, right upper lobe and lower lobe branches. 2. Resorption of previously seen gas in the left axilla with fluid collection at this site with postprocedural change and possibly postprocedural hemorrhage not significantly changed in size. 3. Interval development of right lung airspace process may represent postobstructive pneumonia and there is mucus within the trachea not present yesterday. 4. Right pleural effusion is smaller and left pleural effusion is larger. 5. No change in bulky adenopathy. Leonor Chavez MD Upper Extremity Ultrasound 04/30/17 0000 Signed Impressions: Service Date/Time: April 12:25 - CONCLUSION: There some superficial thrombosis of a vein in the forearm. The deep venous system is patent. Large fluid collection left axilla. Significant soft tissue edema throughout the upper arm. Rinku Hillman MD Thoracentesis Ultrasound 04/30/17 0000 Signed Impressions: Service Date/Time: , April 30, 2017 12:14 - CONCLUSION: Uncomplicated ultrasound guided thoracentesis. Tray aPtel MD Port Line Insertion 04/27/17 0000 Signed Impressions: Service Date/Time: Thursday, April 27, 2017 14:56 - CONCLUSION: 1. Bulky bilateral lower cervical lymphadenopathy. 2. Uncomplicated ultrasound and fluoroscopic guided implanted central venous port catheter placement as described in detail above. An 8 [employer] port was placed. Liang Peralta MD Bone Biopsy CT 04/27/17 0000 Signed Impressions: Service Date/Time: Thursday, April 27, 2017 16:22 - CONCLUSION: 1. Uncomplicated CT guided bone marrow aspirate. 2. Uncomplicated CT guided bone marrow biopsy. Tray Patel MD Chest CT 04/25/17 0000 Signed Impressions: Service Date/Time: Wednesday, April 26, 2017 19:00 - CONCLUSION: The right pleural effusion is slightly larger on the left side has not changed. Extensive bulky adenopathy as before and malignancies such as lymphoma is suspected. Leonor Chavez MD Gall Bladder Ultrasound 04/22/17 0000 Signed Impressions: Service Date/Time: Saturday, April 22, 2017 07:35 - CONCLUSION: Small liver with focal abdomen only incompletely evaluated. Large right pleural effusion. effusion. Kirk Briceño MD FACR Abdomen CT 04/20/17 0000 Signed Impressions: Service Date/Time: Thursday, April 20, 2017 19:40 - CONCLUSION: Limited exam because of lack of intravenous contrast. Lymphoma is suspected. Pathological diagnosis could be obtained with ultrasound biopsy of the cervical, axillary or inguinal adenopathy. Kirk Briceño MD FACR Physical Exam HEENT: PERRL. Normocephalic; atraumatic; no jaundice. CHEST: CTA CARDIAC: RRR ABDOMEN: soft, mildly Distended, nontender; no hepatosplenomegaly; bowel sounds hypoactive EXTREMITIES: Trace peripheral edema. SKIN: Normal; no rash; no jaundice. TAX ACCOUNTING ASSISTANT: alert, nonverbal (Freya Figueroa CHAIR CAR ATTENDANT) Assessment and Plan Plan ASSESSMENT - Abdominal distention, emesis - PSBO vs ileus. Still with significant brownish greenish material with sediments from OGT On Lactulose, miralax, senna, Colace pulse 2 SSE without any results KUB 05/08--Air-filled mildly dilated loops of small bowel suggesting ileus or partial small bowel obstruction. Abdomen/Pelvis CT 05/09/17-- 1. Diffusely distended loops of small bowel down to the cecum suggest ileus. 2. Evidence of mesenteric and retroperitoneal adenopathy. 3. Large bilateral pleural effusions, moderate amount of free fluid in the pelvis and mild ascites in the upper abdomen. 4. Abnormal appearance to the parenchyma of the right kidney with patchy areas of hyperdensity in a mosaic pattern. This of uncertain significance. The patient had iodinated contrast for a CT pulmonary angiogram 7 days ago; this could potentially represent residual parenchymal contrast which would be nonspecific, but raises the possibility of either obstruction or renal infarctions. General surgery following. - leukocytosis - wbc 20.3 today - Acute hypoxic respiratory failure, Chest X-Ray 05/10/17--Tubes and catheters are in good position. Bilateral pleural effusions persist. Right paratracheal stripe widening is unchanged - PE, ALDO on HD, b cell lymphoma - per [facility] [place] [facility] - GS following - Continue bowel regimen - await KUB in am - NPO - TF on hold - Further recommendations to follow based on results of above Patient seen and examined by Dr. Park and myself and this note is written on her behalf. (Freya Figueroa) Physician Comments seen, examined agree with above ngt insertion-to low intermittent suction fu stool c diff supplement electrolytes (Daily Park MD) Freya Figueroa May 11, 2017 16:02 Daily Park MD May 11, 2017 18:01
--- NOTE | 2017-05-11 16:41 | RADRPT ---
EXAM DATE/TIME: 05/11/2017 15:59 [facility] COMPARISON: ABDOMEN KUB ONLY, May 08, 2017, 7:04. INDICATIONS : Abdominal pain, pancreatitis. MEDICAL HISTORY : Pancreatitis. SURGICAL HISTORY : None. ENCOUNTER: Subsequent ACUITY: 1 month PAIN SCORE: Non-responsive. LOCATION: Abdomen. FINDINGS: Diffusely dilated loops of small bowel with small amount of colonic air. No gross pneumatosis or free air. Remainder of exam is unchanged. CONCLUSION: 1. Findings consistent with moderate to severe adynamic ileus versus partial small bowel obstruction. Liang Peralta MD on May 11, 2017 at 16:37 Board Certified Radiologist. This report was verified electronically.
[2017-05-11 17:42] LABS: BACTERIA, URINE RARE /hpf; BLOOD, URINE SMALL (NEG); GLUCOSE,URINE NEG (NEG); KETONE, URINE TRACE mg/dL (NEG); NITRITE,URINE NEG (NEG)
[2017-05-11 17:46] LABS: COMMENT (UR) CATH-CULTURE IND; CULTURE IF INDICATED CATH CULTURE IND; URINE COLOR LIGHT-RED (YELLW/STRAW)
--- NOTE | 2017-05-11 18:26 | HHI.NPPN ---
Subjective History of Present Illness 47-year-old male with no known past medical history who came to the hospital with complaint of nausea, vomiting and abdominal pain on April 18. I was called to see the patient because of elevated BUN and creatinine. The patient had a creatinine of 1.3 on presentation which improved to 0.7 and 0.8, then started increasing for last few days. Additional Remarks Patient is extubated, and open eyes awake, on HD now. Objective Data Data 05/10/17 05/11/17 18:59 06:59 Intake Total 500 ml Output Total 50 ml Balance 450 ml IV Total 500 ml Output Urine Total 50 ml # Bowel Movements 4 Vital Signs Date Time Temp Pulse Resp B/P Pulse Ox O2 Delivery O2 Flow Rate FiO2 05/11/17 18:00 92 05/11/17 16:00 87 05/11/17 16:00 98.0 87 32 110/57 97 05/11/17 15:00 87 33 110/55 94 05/11/17 14:00 90 31 113/59 96 05/11/17 14:00 90 05/11/17 13:00 88 39 114/59 94 05/11/17 12:00 97.6 86 32 112/58 93 05/11/17 12:00 86 05/11/17 11:00 88 22 112/61 94 05/11/17 10:00 90 05/11/17 10:00 90 28 112/60 96 05/11/17 09:00 86 18 105/57 97 05/11/17 08:00 94 05/11/17 08:00 97.6 88 26 117/64 100 05/11/17 07:31 99 Nasal Cannula 2.00 05/11/17 07:00 90 28 123/59 98 05/11/17 06:00 92 05/11/17 04:00 94 05/11/17 04:00 97.8 94 19 132/61 98 05/11/17 02:00 96 05/11/17 00:00 101 05/11/17 00:00 98.5 101 29 151/67 94 05/10/17 22:00 92 05/10/17 20:00 92 05/10/17 20:00 97.9 92 23 138/65 95 05/10/17 19:40 99 Nasal Cannula 2.00 -: 05/11/17 0534 05/11/17 0534 Microbiology 05/11/17 Urine Culture, Received Pending Physical Exam General Appearance: Anxious, Malnourished Eyes Eye Exam: Pupils Equal Throat Throat Exam: Oral Mucosa [place] & Moist Pulmonary Resp Exam: Crackles, Rhonchi, Decreased Bases, Diminished Breath Sounds, Poor Inspiratory Effort Cardiology CV Exam: Regular, Normal Sinus Rhythm Gastrointestinal/Abdomen GI Exam: Soft, Non-Tender, Bowel Sounds Present, Distended Extremeties Extremities Exam: Trace Edema Neurologic Neuro Exam: Awake Assessment/Plan Assessment Summary: ALDO/Acute Renal Failure Problem List: (1) Non-Hodgkin lymphoma (2) Adenopathy (3) Pleural effusion (4) Shortness of breath (5) Pulmonary emboli (6) Acute pancreatitis (7) ALDO (acute kidney injury) Plan Patient has minimal urine out put. Urine Na. was low, and Eosinophils negative. Urine out put remain minimal. Patient is extubated. Now on HD, remove fluid as tolerated. Follow the urine out put and watch for renal recovery. HD as needed. Problem Qualifiers (1) Non-Hodgkin lymphoma: (2) Acute pancreatitis: Qualified Code: K85.20 - Alcohol-induced acute pancreatitis, unspecified complication status Leonid Haley MD May 11, 2017 18:26
[2017-05-11] MEDS: GENTAMICIN SULFATE (DIALYSIS USE ONLY) 20 MG/2 ML VIAL OTHER PRN (18:29)
[2017-05-11] MEDS: SODIUM CHLOR 0.9% 1000 ML IV PRN (18:29)
[2017-05-11] MEDS: HEPARIN SODIUM - IV 10,000 UNITS/10 ML VIAL OTHER PRN (18:30)
[2017-05-11 18:57] LABS: C. DIFF EPI 027 PRESUMPTIVE NEGATIVE (NEGATIVE)
--- NOTE | 2017-05-11 21:12 | HHI.PR ---
Subjective Remarks Extubated and On O2 5L Able to talk. Wants to eat. Chest X ray shows bilateral basal infiltrates.. Objective Vital Signs Date Time Temp Pulse Resp B/P Pulse Ox O2 Delivery O2 Flow Rate FiO2 05/11/17 18:00 92 05/11/17 16:00 87 05/11/17 16:00 98.0 87 32 110/57 97 05/11/17 15:01 94 Nasal Cannula 2.00 05/11/17 15:00 87 33 110/55 94 05/11/17 14:00 90 31 113/59 96 05/11/17 14:00 90 05/11/17 13:00 88 39 114/59 94 05/11/17 12:00 97.6 86 32 112/58 93 05/11/17 12:00 86 05/11/17 11:00 88 22 112/61 94 05/11/17 10:00 90 05/11/17 10:00 90 28 112/60 96 05/11/17 09:00 86 18 105/57 97 05/11/17 08:00 94 05/11/17 08:00 97.6 88 26 117/64 100 05/11/17 07:31 99 Nasal Cannula 2.00 05/11/17 07:00 90 28 123/59 98 05/11/17 06:00 92 05/11/17 04:00 94 05/11/17 04:00 97.8 94 19 132/61 98 05/11/17 02:00 96 05/11/17 00:00 101 05/11/17 00:00 98.5 101 29 151/67 94 05/10/17 22:00 92 I/O 05/10/17 05/10/17 05/10/17 05/11/17 05/11/17 05/11/17 06:59 14:59 22:59 06:59 14:59 22:59 Intake Total 331 ml 375 ml 125 ml 259 ml Output Total 750 ml 50 ml 2500 ml Balance -419 ml 325 ml 125 ml 259 ml -2500 ml IV Total 331 ml 375 ml 125 ml 259 ml Output Urine Total 50 ml 50 ml Gastric Drainage Total 700 ml Hemodialysis 2500 ml # Voids 1 # Bowel Movements 1 3 4 Result Diagram: 05/11/17 0534 05/11/17 0534 Objective Remarks GENERAL: This is a well-nourished, well-developed patient alert . HEENT: Throat clear. CARDIOVASCULAR: Regular rate and rhythm without murmurs, gallops, or rubs. RESPIRATORY: Diffuse expiratory wheezes,.diminished breath sounds bilaterally. GASTROINTESTINAL: Abdomen soft, non-tender,nondistended. + bowel sounds MUSCULOSKELETAL: Extremities show 1 + edema. NEURO: awake and responds well. Assessment and Plan Assessment and Plan ASSESSMENT 1. Acute kidney injury. 2. Respiratory failure. 3. Pulmonary embolism. 4. Non-Hodgkin's lymphoma. 5. Anemia. 6. Hyperphosphatemia. Plan : 1. Wean O2 to 2L 2. Nebs qid , duoneb 3. Anticoagulation as Ordered/Heparin 4. Swallow test and PO diet 5. IS at bedside q3h 6. Labs ,CXR in am 7. No sedation 8. Cont antibiotics. Con Pierre MD May 11, 2017 21:12
[2017-05-12] VITALS (19 sets, daily range): BP systolic 93–121; BP diastolic 51–63; PULSE 79–92; RESP 14–45; TEMP 98.1–98.6; O2SAT 92–100
[2017-05-12] MEDS: ARTIFICIAL TEARS OPTH OINT 3.5 APPLIC/3.5 GM TUBO EACH EYE SCH ×3 (01:30→18:00)
[2017-05-12] MEDS: ACETAMINOPHEN/HYDROcodone 325 MG/5 MG TAB PO PRN (02:48)
[2017-05-12] MEDS: HEPARIN-D5W 25,000 U/250 ML 250 ML IV SCH ×2 (05:17→23:20)
[2017-05-12] MEDS: SUCRALFATE 1 GM/10 ML CUP PO SCH ×4 (05:27→21:19)
[2017-05-12] MEDS: INSULIN NovoLIN REGULAR SUPPLEMENTAL SCALE SQ SCH ×5 (05:27→23:26)
[2017-05-12] MEDS: metroNIDAZOLE 500 MG TAB PO SCH ×5 (05:27→21:19)
--- NOTE | 2017-05-12 05:50 | RADRPT ---
EXAM DATE/TIME: 05/12/2017 03:36 [facility] COMPARISON: CT ABDOMEN & PELVIS W/O CONTRAST, May 09, 2017, 21:16. ABDOMEN KUB ONLY, May 11, 2017, 15:59. INDICATIONS : Ileus. MEDICAL HISTORY : Pancreatitis. SURGICAL HISTORY : None. ENCOUNTER: Subsequent ACUITY: 2 weeks PAIN SCORE: 0/10 LOCATION: Bilateral abdomen FINDINGS: 2 AP supine portable views of the abdomen were obtained and again demonstrate multiple loops of borde rline dilated air-containing small bowel throughout the mid abdomen. This is not significantly change d. Gas is noted in portions of the transverse and asscending colon. There is no free air. The bony st ructures remain intact. There is a small high density structure projected over the left upper abdomen again noted. This is unchanged. CONCLUSION: No significant change in the bowel gas pattern. Goldy Suarez MD on May 12, 2017 at 5:45 Board Certified Radiologist. This report was verified electronically.
[2017-05-12 05:59] LABS: AUTOMATED NEUTROPHIL # 18.7 TH/MM3 (1.8-7.7); BASOPHIL % 0.2 % (0.0-2.0); EOSINOPHIL % 0.2 % (0.0-4.0); HEMATOCRIT 22.1 % (39.0-51.0); HEMO FLAGS DIFF FINAL; LYMPH % 1.8 % (9.0-44.0); LYMPHOCYTE # 0.3 TH/MM3 (1.0-4.8); MEAN CELL VOLUME 85.6 FL (80.0-100.0); MEAN CORPUSCULAR HEMOGLOBIN 28.6 PG (27.0-34.0); MEAN CORPUSCULAR HGB CONC 33.4 % (32.0-36.0); MONO % 2.7 % (0.0-8.0); NEUT % 95.1 % (16.0-70.0); PLATELET COUNT 416 TH/MM3 (150-450); RED BLOOD COUNT 2.58 MIL/MM3 (4.50-5.90); RED CELL DISTRIBUTION WIDTH 16.4 % (11.6-17.2); WHITE BLOOD COUNT 19.7 TH/MM3 (4.0-11.0)
--- NOTE | 2017-05-12 05:59 | RADRPT ---
EXAM DATE/TIME: 05/12/2017 03:33 [facility] COMPARISON: CHEST SINGLE AP, May 06, 2017, 12:00. CHEST SINGLE AP, May 09, 2017, 3:15. CT ABDOMEN & PELVIS W/ O CONTRAST, May 09, 2017, 21:16. CHEST SINGLE AP, May 10, 2017, 3:45. INDICATIONS : Shortness of breath. MEDICAL HISTORY : Pancreatitis. Lymphoma. SURGICAL HISTORY : None. ENCOUNTER: Subsequent ACUITY: 2 weeks PAIN SCORE: 0/10 LOCATION: Bilateral chest FINDINGS: A single AP portable semierect view of the chest was obtained and demonstrates interval extubation an d removal of the nasogastric tube. The right-sided implantable port catheter remains in place. The le ft-sided double-lumen catheter remains in place as well. The right paratracheal mass is unchanged. Jovel zy opacity remains in the perihilar regions in both lung bases. The heart size is at the upper limits of normal. CONCLUSION: 1. No significant change in the hazy opacity in the perihilar regions of both lung bases. 2. The right paratracheal mass is unchanged. 3. Interval extubation and removal of nasogastric tube. Goldy Suarez MD on May 12, 2017 at 5:56 Board Certified Radiologist. This report was verified electronically.
[2017-05-12] MEDS: CHLORHEXIDINE 0.12% (ORAL KIT) 15 ML CUP MT SCH ×2 (08:00→20:00)
[2017-05-12] MEDS: ALLOPURINOL 100 MG TAB PO SCH (08:49)
[2017-05-12] MEDS: PANTOPRAZOLE SODIUM 40 MG VIAL IV PUSH SCH (08:49)
[2017-05-12] MEDS: CALCIUM ACETATE 667 MG CAP PO SCH ×5 (08:49→17:52)
[2017-05-12] MEDS: NIFEdipine 90 MG SUSTAINED RELEASE TAB PO SCH (08:50)
[2017-05-12] MEDS: LACTULOSE SYRUP 20 GM/30 ML CUP PO SCH ×2 (09:00→20:07)
[2017-05-12] MEDS: POLYETHYLENE GLYCOL 17 GM PKG PO SCH (09:00)
[2017-05-12] MEDS: DOCUSATE SODIUM 50 MG/SENNA 8.6 MG TAB PO SCH ×2 (09:00→20:07)
[2017-05-12] MEDS ORDERED: MORPHINE SULFATE 4 MG/ML INJ IV PUSH ONE (09:45)
--- NOTE | 2017-05-12 11:09 | PD.ONC.PN ---
Subjective Subjective Remarks Afebrile overnight. Patient working with PT. A bit more alert today. Still having diarrhea. Objective Data Date Time Temp Pulse Resp B/P Pulse Ox O2 Delivery O2 Flow Rate FiO2 05/12/17 10:00 80 05/12/17 09:16 98 Nasal Cannula 2.00 05/12/17 09:00 81 30 111/54 99 05/12/17 08:00 98.5 85 27 120/59 99 05/12/17 08:00 85 05/12/17 07:00 84 28 116/59 100 05/12/17 06:00 83 05/12/17 04:00 84 05/12/17 04:00 98.6 84 23 116/57 99 05/12/17 02:00 91 05/12/17 00:00 92 05/12/17 00:00 98.4 92 28 121/63 96 05/11/17 22:00 92 05/11/17 20:00 91 05/11/17 20:00 98.6 91 18 112/59 96 05/11/17 18:00 92 05/11/17 16:00 87 05/11/17 16:00 98.0 87 32 110/57 97 05/11/17 15:01 94 Nasal Cannula 2.00 05/11/17 15:00 87 33 110/55 94 05/11/17 14:00 90 31 113/59 96 05/11/17 14:00 90 05/11/17 13:00 88 39 114/59 94 05/11/17 12:00 97.6 86 32 112/58 93 05/11/17 12:00 86 05/12/17 05/12/17 05/12/17 06:59 14:59 22:59 Intake Total 356 ml Balance 356 ml Result Diagram: 05/12/17 0521 05/11/17 0534 Laboratory Results Laboratory Tests Test 05/11/17 05/11/17 05/12/17 13:45 15:00 05:21 Stool C. difficile Toxin (PCR) POSITIVE Stl C. difficile Toxin PRESUMPTIVE Epiderm 027 NEGATIVE Urine Color LIGHT-RED Urine Turbidity HAZY Urine pH 6.0 Urine Specific [place] 1.032 Urine Protein 100 mg/dL Urine Glucose (UA) NEG mg/dL Urine Ketones TRACE mg/dL Urine Occult Blood SMALL Urine Nitrite NEG Urine Bilirubin NEG Urine Urobilinogen LESS THAN 2.0 MG/DL Urine Leukocyte Esterase TRACE Urine RBC 16 /hpf Urine WBC 11 /hpf Urine Bacteria RARE /hpf Urine Yeast (Budding) FEW Microscopic Urinalysis Comment CATH-CULTURE IND White Blood Count 19.7 TH/MM3 Red Blood Count 2.58 MIL/MM3 Hemoglobin 7.4 GM/DL Hematocrit 22.1 % Mean Corpuscular Volume 85.6 FL Mean Corpuscular Hemoglobin 28.6 PG Mean Corpuscular Hemoglobin 33.4 % Concent Red Cell Distribution Width 16.4 % Platelet Count 416 TH/MM3 Mean Platelet Volume 7.2 FL Neutrophils (%) (Auto) 95.1 % Lymphocytes (%) (Auto) 1.8 % Monocytes (%) (Auto) 2.7 % Eosinophils (%) (Auto) 0.2 % Basophils (%) (Auto) 0.2 % Neutrophils # (Auto) 18.7 TH/MM3 Lymphocytes # (Auto) 0.3 TH/MM3 Monocytes # (Auto) 0.5 TH/MM3 Eosinophils # (Auto) 0.0 TH/MM3 Basophils # (Auto) 0.0 TH/MM3 CBC Comment DIFF FINAL Differential Comment Uric Acid 4.6 MG/DL Culture Results Microbiology Date/Time Procedure Status Source Growth 05/11/17 15:00 Urine Culture Received Urine Catheterized Urine Pending Imaging Studies Last 24 hours Impressions Chest X-Ray 05/12/17 0600 Signed Impressions: Service Date/Time: Friday, May 12, 2017 03:33 - CONCLUSION: 1. No significant change in the hazy opacity in the perihilar regions of both lung bases. 2. The right paratracheal mass is unchanged. 3. Interval extubation and removal of nasogastric tube. Goldy Suarez MD Abdomen X-Ray 05/12/17 0600 Signed Impressions: Service Date/Time: Friday, May 12, 2017 03:36 - CONCLUSION: No significant change in the bowel gas pattern. Goldy Suarez MD Administered Medications Medications (Trade) Dose Ordered Sig/Shyla Route PRN Reason Start Time Stop Time Status Last Admin Dose Admin Sodium Chloride (NS Flush) 2 ml UNSCH PRN IV FLUSH FLUSH AFTER USING IV ACCESS 04/18/17 17:30 04/21/17 22:27 Senna/Docusate Sodium (Porsha-Colace) 1 tab BID PO 04/18/17 21:00 05/10/17 07:52 Magnesium Hydroxide (Milk Of Magnesia Liq) 30 ml Q12H PRN PO MILD - MODERATE CONSTIPATION 04/18/17 19:30 05/09/17 08:01 Heparin Sodium (Porcine) (Heparin Inj) 5,000 units Q8HR SQ 04/19/17 14:00 Hold 05/02/17 12:46 Hydralazine HCl (Apresoline Inj) 10 mg Q6HR PRN IV PUSH SBP>160, DBP>90 04/21/17 17:00 04/27/17 10:15 Nifedipine (Procardia Xl) 90 mg DAILY PO 04/28/17 09:00 05/12/17 08:50 Clonidine (Catapres) 0.1 mg Q6H PRN PO SBP>160, DBP>90 04/27/17 15:00 04/29/17 08:07 Ondansetron HCl (Zofran Inj) 4 mg Q6HR PRN IV PUSH NAUSEA OR VOMITING 04/30/17 11:30 05/07/17 10:06 Promethazine HCl (Phenergan Inj) 25 mg Q6H PRN IM NAUSEA OR VOMITING 04/30/17 11:30 05/01/17 13:27 Acetaminophen/ Hydrocodone Bitart ([place] 5-325 Mg) 1 tab Q6H PRN PO PAIN SCALE 1 TO 10 04/30/17 11:30 05/12/17 02:48 Insulin Human Regular (NovoLIN R SUPPLEMENTAL SCALE) 1 Q6HR SQ 05/02/17 12:00 05/04/17 18:00 Chlorhexidine Gluconate 15 ml 15 ml BID@08,20 MT 05/02/17 20:00 05/10/17 07:52 Fentanyl Citrate 250 ml @ 0 mls/hr TITRATE IV 05/02/17 10:00 05/10/17 05:36 Propofol (Diprivan 1000 Mg/100ml Inj) 100 ml @ 0 mls/hr TITRATE IV 05/02/17 10:00 05/10/17 06:54 Miscellaneous Information Patient in critical care unit? Ass... Q361D .XX 05/02/17 17:15 05/02/17 17:30 Heparin Sodium/ Dextrose (Heparin-D5W Inj) 250 ml @ 0 mls/hr TITRATE IV 05/03/17 02:00 05/12/17 05:17 Calcium Acetate (Phoslo) 2,668 mg TID PO 05/03/17 09:00 05/12/17 08:49 Allopurinol (Zyloprim) 200 mg DAILY PO 05/06/17 09:00 05/12/17 08:49 Pantoprazole Sodium (Protonix Inj) 40 mg DAILY IV PUSH 05/07/17 12:00 05/12/17 08:49 Artificial Tears 1 applic 1 applic Q8H EACH EYE 05/07/17 18:00 05/12/17 01:30 Sodium Chloride (NS 1000 ml Inj) 1,000 ml @ 0 mls/hr TITRATE PRN IV WITH DIALYSIS 05/07/17 18:00 05/11/17 18:29 Heparin Sodium (Porcine) (Heparin Inj) Dwell Heparin to f... UNSCH PRN OTHER WITH DIALYSIS 05/07/17 18:00 05/11/17 18:30 Gentamicin Sulfate (Gentamicin (Dialysis) Inj) 10 mg UNSCH PRN OTHER WITH DIALYSIS 05/07/17 18:00 05/11/17 18:29 Polyethylene Glycol (Miralax) 17 gm DAILY PO 05/08/17 09:00 05/10/17 07:52 Lactulose (Lactulose Liq) 30 ml BID PO 05/08/17 09:00 05/10/17 07:51 Sucralfate (Carafate Liq) 1 gm Q8HR PO 05/10/17 14:00 05/13/17 13:59 05/12/17 05:27 Metronidazole (Flagyl) 500 mg Q8HR PO 05/11/17 14:00 05/12/17 05:27 Objective Remarks GENERAL: chronically ill male sitting up on side of bed working with physical therapy. SKIN: Warm and dry. RIJ in place. vas-cath in place. HEAD: Normocephalic. EYES: No injection or drainage. NECK: Supple, trachea midline. CARDIOVASCULAR: +S1/S2 RESPIRATORY: diminished at bases. anterior canas clear. On 2L O2 via [place] GASTROINTESTINAL: Abdomen soft, non-tender EXTREMITIES: No cyanosis. extremities with edema. NEUROLOGICAL: awake and alert. delayed responses. Assessment/Plan Problem List: (1) Pulmonary emboli Status: Acute Plan: --CTA showed large PE --s/p tpa therapy on 05.02. now on heparin gtt. (2) Non-Hodgkin lymphoma Status: Acute Plan: --remains critically ill; no further chemo until stable. Assessment 47y/o male admitted with pancreatitis, found to have NHL. Given Rituxan on 05.01 and developed massive PE on and went into cardiogenic shock with renal failure. Now critically ill in [facility] [place]. s/p thrombolytic therapy Plan 1. continue to monitor clinical improvement 2. continue heparin gtt Attending Statement The exam, history, and the medical decision-making described in the above note were completed with the assistance of the mid-level provider. I reviewed and agree with the findings presented. I attest that I had a [id number] encounter with the patient on the same day, and personally performed and documented my assessment and findings in the medical record. He is still very weak. Now C.diff+ and xray showed possible adynamic ileus. Renal function has not improved. Not stable to give chemo at this time. Continue supportive care. Once improved, plan to give him CHOP with renal dosing. Problem Qualifiers (1) Non-Hodgkin lymphoma: Brenda Platt May 12, 2017 11:09 Ruslan Connelly MD May 12, 2017 13:59
--- NOTE | 2017-05-12 11:23 | PD.CARD.PN ---
Subjective Subjective Remarks No events overnight No chest pain, SOB stable Objective Medications Current Medications Medications (Trade) Dose Ordered Sig/Shyla Route Start Time Stop Time Status Last Admin (NS Flush) 2 ml UNSCH PRN IV FLUSH 04/18/17 17:30 04/21/17 22:27 (Narcan Inj) 0.4 mg UNSCH PRN IV 04/18/17 19:30 (Porsha-Colace) 1 tab BID PO 04/18/17 21:00 05/10/17 07:52 (Milk Of Magnesia Liq) 30 ml Q12H PRN PO 04/18/17 19:30 05/09/17 08:01 (Senokot) 17.2 mg Q12H PRN PO 04/18/17 19:30 (Dulcolax Supp) 10 mg DAILY PRN RECTAL 04/18/17 19:30 (Lactulose Liq) 30 ml DAILY PRN PO 04/18/17 19:30 (Heparin Inj) 5,000 units Q8HR SQ 04/19/17 14:00 Hold 05/02/17 12:46 (Apresoline Inj) 10 mg Q6HR PRN IV PUSH 04/21/17 17:00 04/27/17 10:15 (Procardia Xl) 90 mg DAILY PO 04/28/17 09:00 05/12/17 08:50 Clonidine 0.1 mg 0.1 mg Q6H PRN PO 04/27/17 15:00 04/29/17 08:07 (Vepesid Inj/ Adriamycin Inj/ Oncovin Inj/NS 500 ml ([place] Bag) Inj) 515.089 ml @ 21.462 mls/hr Q24H IV 04/30/17 15:00 05/04/17 14:59 Hold (Zofran Inj) 4 mg Q6HR PRN IV PUSH 04/30/17 11:30 05/07/17 10:06 (Phenergan Inj) 25 mg Q6H PRN IM 04/30/17 11:30 05/01/17 13:27 ([place] 5-325 Mg) 1 tab Q6H PRN PO 04/30/17 11:30 05/12/17 02:48 (D50w (Vial) Inj) 25 ml UNSCH PRN IV PUSH 05/02/17 10:00 (NovoLIN R SUPPLEMENTAL SCALE) 1 Q6HR SQ 05/02/17 12:00 05/04/17 18:00 Chlorhexidine Gluconate 15 ml 15 ml BID@08,20 MT 05/02/17 20:00 05/10/17 07:52 Fentanyl Citrate 250 ml @ 0 mls/hr TITRATE IV 05/02/17 10:00 05/10/17 05:36 (Diprivan 1000 Mg/100ml Inj) 100 ml @ 0 mls/hr TITRATE IV 05/02/17 10:00 05/10/17 06:54 Miscellaneous Information Patient in critical care unit? Ass... Q361D .XX 05/02/17 17:15 05/02/17 17:30 (Heparin-D5W Inj) 250 ml @ 0 mls/hr TITRATE IV 05/03/17 02:00 05/12/17 05:17 (Phoslo) 2,668 mg TID PO 05/03/17 09:00 05/12/17 08:49 (Zyloprim) 200 mg DAILY PO 05/06/17 09:00 05/12/17 08:49 (Protonix Inj) 40 mg DAILY IV PUSH 05/07/17 12:00 05/12/17 08:49 Artificial Tears 1 applic 1 applic Q8H EACH EYE 05/07/17 18:00 05/12/17 01:30 (NS 1000 ml Inj) 1,000 ml @ 0 mls/hr TITRATE PRN IV 05/07/17 18:00 05/11/17 18:29 Heparin Sodium (Porcine) 8000 units 8,000 units UNSCH PRN IV FLUSH 05/07/17 18:00 Sodium Chloride 1,000 ml @ 200 mls/hr Q5H PRN IV 05/07/17 18:00 (NS 250 ml Inj) 200 ml @ 0 mls/hr UNSCH PRN IV 05/07/17 18:00 (Mannitol Inj) 12.5 gm UNSCH PRN IV 05/07/17 18:00 (Albumin 25% Inj) 25 gm UNSCH PRN IV 05/07/17 18:00 (NS Flush) 5 ml UNSCH PRN IV FLUSH 05/07/17 18:00 (Heparin Inj) Dwell Heparin to f... UNSCH PRN OTHER 05/07/17 18:00 05/11/17 18:30 (Gentamicin (Dialysis) Inj) 10 mg UNSCH PRN OTHER 05/07/17 18:00 05/11/17 18:29 (Gelfoam 12 Mm/7 Mm Top) 1 foam UNSCH PRN TOPICAL 05/07/17 18:00 (Zofran Inj) 4 mg UNSCH PRN IV 05/07/17 18:00 (Benadryl) 25 mg UNSCH PRN PO 05/07/17 18:00 (Nitrostat Sl) 0.4 mg UNSCH PRN SL 05/07/17 18:00 (Catapres) 0.1 mg UNSCH PRN PO 05/07/17 18:00 (Miralax) 17 gm DAILY PO 05/08/17 09:00 05/10/17 07:52 (Lactulose Liq) 30 ml BID PO 05/08/17 09:00 05/10/17 07:51 (Carafate Liq) 1 gm Q8HR PO 05/10/17 14:00 05/13/17 13:59 05/12/17 05:27 (Flagyl) 500 mg Q8HR PO 05/11/17 14:00 05/12/17 05:27 Vital Signs / I&O Vital Signs Date Time Temp Pulse Resp B/P Pulse Ox O2 Delivery O2 Flow Rate FiO2 05/12/17 10:00 80 05/12/17 09:16 98 Nasal Cannula 2.00 05/12/17 09:00 81 30 111/54 99 05/12/17 08:00 98.5 85 27 120/59 99 05/12/17 08:00 85 05/12/17 07:00 84 28 116/59 100 05/12/17 06:00 83 05/12/17 04:00 84 05/12/17 04:00 98.6 84 23 116/57 99 05/12/17 02:00 91 05/12/17 00:00 92 05/12/17 00:00 98.4 92 28 121/63 96 05/11/17 22:00 92 05/11/17 20:00 91 05/11/17 20:00 98.6 91 18 112/59 96 05/11/17 18:00 92 05/11/17 16:00 87 05/11/17 16:00 98.0 87 32 110/57 97 05/11/17 15:01 94 Nasal Cannula 2.00 05/11/17 15:00 87 33 110/55 94 05/11/17 14:00 90 31 113/59 96 05/11/17 14:00 90 05/11/17 13:00 88 39 114/59 94 05/11/17 12:00 97.6 86 32 112/58 93 05/11/17 12:00 86 I/O 05/11/17 05/11/17 05/11/17 05/12/17 05/12/17 05/12/17 06:59 14:59 22:59 06:59 14:59 22:59 Intake Total 125 ml 259 ml 103 ml 356 ml Output Total 2550 ml Balance 125 ml 259 ml -2447 ml 356 ml Intake Oral 240 ml IV Total 125 ml 259 ml 103 ml 116 ml Output Urine Total 50 ml Hemodialysis 2500 ml # Voids 1 # Bowel Movements 3 4 3 Physical Exam GENERAL: NAD, AAOx3 SKIN: Warm and dry. HEAD: Atraumatic. Normocephalic. EYES: Pupils equal and round. No scleral icterus. No injection or drainage. ENT: No nasal bleeding or discharge. Mucous membranes pink and moist. NECK: Trachea midline. No JVD. CARDIOVASCULAR: Regular rate and rhythm. RESPIRATORY: No accessory muscle use. Decreased breath sounds bilaterally GASTROINTESTINAL: Abdomen soft, non-tender, nondistended. Hepatic and splenic margins not palpable. MUSCULOSKELETAL: Extremities without clubbing, cyanosis, or edema. No obvious deformities. NEUROLOGICAL: Awake and alert. No obvious cranial nerve deficits. Motor grossly within normal limits. Five out of 5 muscle strength in the arms and legs. Normal speech. PSYCHIATRIC: Appropriate mood and affect; insight and judgment normal. Laboratory Laboratory Tests Test 05/11/17 05/11/17 05/12/17 13:45 15:00 05:21 Stool C. difficile Toxin (PCR) POSITIVE Stl C. difficile Toxin PRESUMPTIVE Epiderm 027 NEGATIVE Urine Color LIGHT-RED Urine Turbidity HAZY Urine pH 6.0 Urine Specific [place] 1.032 Urine Protein 100 mg/dL Urine Glucose (UA) NEG mg/dL Urine Ketones TRACE mg/dL Urine Occult Blood SMALL Urine Nitrite NEG Urine Bilirubin NEG Urine Urobilinogen LESS THAN 2.0 MG/DL Urine Leukocyte Esterase TRACE Urine RBC 16 /hpf Urine WBC 11 /hpf Urine Bacteria RARE /hpf Urine Yeast (Budding) FEW Microscopic Urinalysis Comment CATH-CULTURE IND White Blood Count 19.7 TH/MM3 Red Blood Count 2.58 MIL/MM3 Hemoglobin 7.4 GM/DL Hematocrit 22.1 % Mean Corpuscular Volume 85.6 FL Mean Corpuscular Hemoglobin 28.6 PG Mean Corpuscular Hemoglobin 33.4 % Concent Red Cell Distribution Width 16.4 % Platelet Count 416 TH/MM3 Mean Platelet Volume 7.2 FL Neutrophils (%) (Auto) 95.1 % Lymphocytes (%) (Auto) 1.8 % Monocytes (%) (Auto) 2.7 % Eosinophils (%) (Auto) 0.2 % Basophils (%) (Auto) 0.2 % Neutrophils # (Auto) 18.7 TH/MM3 Lymphocytes # (Auto) 0.3 TH/MM3 Monocytes # (Auto) 0.5 TH/MM3 Eosinophils # (Auto) 0.0 TH/MM3 Basophils # (Auto) 0.0 TH/MM3 CBC Comment DIFF FINAL Differential Comment Uric Acid 4.6 MG/DL Assessment and Plan Problem List: (1) Pulmonary emboli (2) Cardiogenic shock (3) Shortness of breath (4) Pleural effusion (5) PFO (patent foramen ovale) (6) Non-Hodgkin lymphoma Assessment and Plan 1) Sub-massive PE s/p TPA 2) On heparin with a plan for transfer to oral anti-coagulant per Heme/Onc 3) Possible PFO on TTE RV/RA/Pulm pressure normal No plan for JOSE LUIS at this time due to having to stop anticoagulation and 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
[2017-05-12 11:37] LABS: ALKALINE PHOSPHATASE 148 U/L (45-117); ALT (GPT) 8 U/L (12-78); AMYLASE 79 U/L (25-115); ANION GAP 12 MEQ/L (5-15); AST (GOT) 13 U/L (15-37); BICARBONATE 29.7 MEQ/L (21.0-32.0); BLOOD UREA NITROGEN 35 MG/DL (7-18); CHLORIDE 95 MEQ/L (98-107); GLOMERULAR FILTRATION RATE 12 ML/MIN (>89); SODIUM (NA) 137 MEQ/L (136-145); TOTAL BILIRUBIN ADULT 0.7 MG/DL (0.2-1.0)
[2017-05-12 11:46] LABS: POTASSIUM 2.6 MEQ/L (3.5-5.1)
--- NOTE | 2017-05-12 12:41 | HHI.PR ---
Subjective Remarks Extubated and On O2 3L .Better overall. Wants to eat. Has some arm swelling. Objective Vital Signs Date Time Temp Pulse Resp B/P Pulse Ox O2 Delivery O2 Flow Rate FiO2 05/12/17 12:00 98.1 81 14 107/56 92 05/12/17 12:00 81 05/12/17 11:00 84 37 93/52 95 05/12/17 10:00 80 26 104/55 05/12/17 10:00 80 05/12/17 09:16 98 Nasal Cannula 2.00 05/12/17 09:00 81 30 111/54 99 05/12/17 08:00 98.5 85 27 120/59 99 05/12/17 08:00 85 05/12/17 07:00 84 28 116/59 100 05/12/17 06:00 83 05/12/17 04:00 84 05/12/17 04:00 98.6 84 23 116/57 99 05/12/17 02:00 91 05/12/17 00:00 92 05/12/17 00:00 98.4 92 28 121/63 96 05/11/17 22:00 92 05/11/17 20:00 91 05/11/17 20:00 98.6 91 18 112/59 96 05/11/17 18:00 92 05/11/17 16:00 87 05/11/17 16:00 98.0 87 32 110/57 97 05/11/17 15:01 94 Nasal Cannula 2.00 05/11/17 15:00 87 33 110/55 94 05/11/17 14:00 90 31 113/59 96 05/11/17 14:00 90 05/11/17 13:00 88 39 114/59 94 I/O 05/11/17 05/11/17 05/11/17 05/12/17 05/12/17 05/12/17 07:00 15:00 23:00 07:00 15:00 23:00 Intake Total 125 ml 259 ml 103 ml 356 ml Output Total 2550 ml Balance 125 ml 259 ml -2447 ml 356 ml Intake Oral 240 ml IV Total 125 ml 259 ml 103 ml 116 ml Output Urine Total 50 ml Hemodialysis 2500 ml # Voids 1 # Bowel Movements 3 4 3 Result Diagram: 05/12/17 0521 05/12/17 1045 Objective Remarks GENERAL: This is a mid aged A/A male , well-developed patient alert . HEENT: Throat clear. CARDIOVASCULAR: Regular rate and rhythm without murmurs, gallops, or rubs. RESPIRATORY: Diffuse expiratory wheezes,diminished breath sounds bilaterally. GASTROINTESTINAL: Abdomen soft, non-tender,nondistended. + bowel sounds MUSCULOSKELETAL: Extremities show 1 + edema of arms. NEURO: awake and responds well.Moves all. Assessment and Plan Assessment and Plan ASSESSMENT 1. Acute kidney injury. 2. Respiratory failure. 3. Pulmonary embolism. 4. Non-Hodgkin's lymphoma. 5. Anemia. 6. Hyperphosphatemia. Plan : 1. Wean O2 to 2L 2. Nebs tid , duoneb 3. Anticoagulation as Ordered. 4. Swallow test and PO diet 5. IS at bedside q3h 6. Labs , in am 7. PT and OT 8. Transfer to Floor. Con Pierre MD May 12, 2017 12:41
--- NOTE | 2017-05-12 13:42 | HHI.HCPN ---
Reason for visit a. To assist with evaluation and management of symptoms including: Debility. b. To assist medical decision maker(s) with: better understanding of current medical conditions; weighing benefits/burdens of medical treatment options; making medical treatment decisions. . Subjective/Interval History Mr. Werner is a 47-year-old male with no significant medical history, recently diagnosed with aggressive CD10 positive B-cell non-Hodgkin lymphoma. Clinical course complicated by large pulmonary embolism post TPA, acute hypoxemic respiratory failure required intubation and mechanical ventilation on 05/02/17 and cardiogenic shock requiring inotropic therapy and acute kidney injury requiring WASTE REMOVALIST. Palliative care was consulted for assistance with goals of care and to determine healthcare surrogate decision maker. Patient extubated on 05/10/17, currently on nasal cannula 2 L. patient alert and oriented X self, place and situation. Verbal, endorsing feeling very weak. Denies pain, nausea/vomiting or shortness of breath. Patient having liquid stools, C. difficile positive. GI following for possible PSBO vs ileus. Abdominal x-ray today with no significant change in bowel gas pattern. Laboratory workup today revealing WBC 19.7, Hgb 7.4, platelet count 416. Potassium 2.6, being replaced. BUN/creatinine 35/5.96, patient on HD 3 times per week. Nephrology following. Received telephone call from patient's mother Oxana Seals. Medical update provided. Reviewed current medical management. Mother inquiring regarding restart of chemotherapy. Reviewed that as per oncology notes, no further chemotherapy until patient is medically stable. Case discussed with SUMMER Kelly. . Family/friend interactions See interval note. . Advance Directives Living Will: Never completed Health Care Surrogate: Copy in medical record Durable Power of Bed Rubber: Never completed Advance Directive Specifics Date completed: 04/29/17. . Health Care Surrogate(s[place] [facility] [place] Oxana Seals. Alternate surrogate -sister France Garcia. . Documented care wishes: No living will completed. . Significant change in goals: Goals of care remain unchanged. . Objective Vital Signs Date Time Temp Pulse Resp B/P Pulse Ox O2 Delivery O2 Flow Rate FiO2 05/12/17 12:00 98.1 81 14 107/56 92 05/12/17 12:00 81 05/12/17 11:00 84 37 93/52 95 05/12/17 10:00 80 26 104/55 05/12/17 10:00 80 05/12/17 09:16 98 Nasal Cannula 2.00 05/12/17 09:00 81 30 111/54 99 05/12/17 08:00 98.5 85 27 120/59 99 05/12/17 08:00 85 05/12/17 07:00 84 28 116/59 100 05/12/17 06:00 83 05/12/17 04:00 84 05/12/17 04:00 98.6 84 23 116/57 99 05/12/17 02:00 91 05/12/17 00:00 92 05/12/17 00:00 98.4 92 28 121/63 96 05/11/17 22:00 92 05/11/17 20:00 91 05/11/17 20:00 98.6 91 18 112/59 96 05/11/17 18:00 92 05/11/17 16:00 87 05/11/17 16:00 98.0 87 32 110/57 97 05/11/17 15:01 94 Nasal Cannula 2.00 05/11/17 15:00 87 33 110/55 94 05/11/17 14:00 90 31 113/59 96 05/11/17 14:00 90 Intake & Output 05/12/17 05/12/17 07:00 19:00 Intake Total 459 ml Output Total 2550 ml Balance -2091 ml Intake Oral 240 ml IV Total 219 ml Output Urine Total 50 ml Hemodialysis 2500 ml # Bowel Movements 3 Physical Exam CONSTITUTIONAL/GENERAL: This is an adequately nourished male in no acute distress. TUBES/LINES/DRAINS: Mediport right chest, PIV's, Vas-Cath to left chest, Singh catheter, SCDs, NC. SKIN: No jaundice, rashes, or lesions. Ecchymoses on upper extremities. No wounds seen anteriorly. Not diaphoretic. HEAD: Atraumatic. Normocephalic. EYES: Pupils equal and round and reactive. No scleral icterus. No injection or drainage. ENT: Hearing appears normal. Nose without bleeding or purulent drainage. Moist oral mucosa. Poor dentition, dry lips. NECK: Trachea midline. Supple, nontender. CARDIOVASCULAR: Regular rate and rhythm without murmurs, gallops, or rubs. Peripheral pulses symmetric. RESPIRATORY/CHEST: Symmetric, coarse breath sounds bilaterally. O2 via nasal cannula 3 L. GASTROINTESTINAL: Abdomen distended, round. + bowel sounds present. GENITOURINARY: Without palpable bladder distension. MUSCULOSKELETAL: Extremities without clubbing, cyanosis. Edema to bilateral arms. No mottling or clubbing. NEUROLOGICAL: A & O x self, place and situation. Slow to respond, verbal. PSYCHIATRIC: calm. . Diagnostic Tests Laboratory Laboratory Tests Test 05/09/17 05/09/17 05/10/17 05/10/17 17:00 20:00 00:00 03:15 Activated Partial 39.4 SEC 41.0 SEC 48.1 SEC 51.3 SEC Thromboplast Time (24.3-30.1) (24.3-30.1) (24.3-30.1) (24.3-30.1) Prothrombin Time 12.2 SEC (9.8-11.6) Prothromb Time International 1.1 RATIO Ratio Test 05/10/17 05/10/17 05/10/17 05/10/17 03:31 06:00 09:40 18:08 White Blood Count 10.5 TH/MM3 (4.0-11.0) Red Blood Count 2.54 MIL/MM3 (4.50-5.90) Hemoglobin 7.5 GM/DL (13.0-17.0) Hematocrit 21.4 % (39.0-51.0) Mean Corpuscular Volume 84.2 FL (80.0-100.0) Mean Corpuscular Hemoglobin 29.5 PG (27.0-34.0) Mean Corpuscular Hemoglobin 35.1 % Concent (32.0-36.0) Red Cell Distribution Width 16.4 % (11.6-17.2) Platelet Count 375 TH/MM3 (150-450) Mean Platelet Volume 7.4 FL (7.0-11.0) Sodium Level 137 MEQ/L (136-145) Potassium Level 3.3 MEQ/L (3.5-5.1) Chloride Level 92 MEQ/L (98-107) Carbon Dioxide Level 29.2 MEQ/L (21.0-32.0) Anion Gap 16 MEQ/L (5-15) Blood Urea Nitrogen 43 MG/DL (7-18) Creatinine 5.86 MG/DL (0.60-1.30) Estimat Glomerular Filtration 13 ML/MIN (>89) Rate Random Glucose 80 MG/DL (74-106) Calcium Level 8.4 MG/DL (8.5-10.1) Phosphorus Level 7.8 MG/DL (2.5-4.9) Magnesium Level 2.2 MG/DL (1.5-2.5) Activated Partial 52.7 SEC 66.5 SEC 60.7 SEC Thromboplast Time (24.3-30.1) (24.3-30.1) (24.3-30.1) Test 05/11/17 05/11/17 05/11/17 05/12/17 05:34 13:45 15:00 05:21 White Blood Count 20.3 TH/MM3 19.7 TH/MM3 (4.0-11.0) (4.0-11.0) Red Blood Count 2.77 MIL/MM3 2.58 MIL/MM3 (4.50-5.90) (4.50-5.90) Hemoglobin 7.9 GM/DL 7.4 GM/DL (13.0-17.0) (13.0-17.0) Hematocrit 23.5 % 22.1 % (39.0-51.0) (39.0-51.0) Mean Corpuscular Volume 85.0 FL 85.6 FL (80.0-100.0) (80.0-100.0) Mean Corpuscular Hemoglobin 28.3 PG 28.6 PG (27.0-34.0) (27.0-34.0) Mean Corpuscular Hemoglobin 33.4 % 33.4 % Concent (32.0-36.0) (32.0-36.0) Red Cell Distribution Width 16.5 % 16.4 % (11.6-17.2) (11.6-17.2) Platelet Count 444 TH/MM3 416 TH/MM3 (150-450) (150-450) Mean Platelet Volume 7.2 FL 7.2 FL (7.0-11.0) (7.0-11.0) Neutrophils (%) (Auto) 95.1 % 95.1 % (16.0-70.0) (16.0-70.0) Lymphocytes (%) (Auto) 1.0 % 1.8 % (9.0-44.0) (9.0-44.0) Monocytes (%) (Auto) 3.4 % (0.0-8.0) 2.7 % (0.0-8.0) Eosinophils (%) (Auto) 0.2 % (0.0-4.0) 0.2 % (0.0-4.0) Basophils (%) (Auto) 0.3 % (0.0-2.0) 0.2 % (0.0-2.0) Neutrophils # (Auto) 19.3 TH/MM3 18.7 TH/MM3 (1.8-7.7) (1.8-7.7) Lymphocytes # (Auto) 0.2 TH/MM3 0.3 TH/MM3 (1.0-4.8) (1.0-4.8) Monocytes # (Auto) 0.7 TH/MM3 0.5 TH/MM3 (0-0.9) (0-0.9) Eosinophils # (Auto) 0.0 TH/MM3 0.0 TH/MM3 (0-0.4) (0-0.4) Basophils # (Auto) 0.1 TH/MM3 0.0 TH/MM3 (0-0.2) (0-0.2) CBC Comment DIFF FINAL DIFF FINAL Differential Comment Activated Partial 62.3 SEC Thromboplast Time (24.3-30.1) Sodium Level 136 MEQ/L (136-145) Potassium Level 2.7 MEQ/L (3.5-5.1) Chloride Level 90 MEQ/L (98-107) Carbon Dioxide Level 27.1 MEQ/L (21.0-32.0) Anion Gap 19 MEQ/L (5-15) Blood Urea Nitrogen 49 MG/DL (7-18) Creatinine 7.13 MG/DL (0.60-1.30) Estimat Glomerular Filtration 10 ML/MIN (>89) Rate Random Glucose 89 MG/DL (74-106) Calcium Level 8.6 MG/DL (8.5-10.1) Phosphorus Level 8.1 MG/DL (2.5-4.9) Albumin 1.8 GM/DL (3.4-5.0) Stool C. difficile Toxin (PCR) POSITIVE (NEGATIVE) Stl C. difficile Toxin PRESUMPTIVE Epiderm 027 NEGATIVE (NEGATIVE) Urine Color LIGHT-RED (YELLW/STRAW) Urine Turbidity HAZY (CLEAR) Urine pH 6.0 (5.0-8.5) Urine Specific [place] 1.032 (1.002-1.035) Urine Protein 100 mg/dL (NEG-TRACE) Urine Glucose (UA) NEG mg/dL (NEG) Urine Ketones TRACE mg/dL (NEG) Urine Occult Blood SMALL (NEG) Urine Nitrite NEG (NEG) Urine Bilirubin NEG (NEG) Urine Urobilinogen LESS THAN 2.0 MG/DL (LESS THAN 2.0) Urine Leukocyte Esterase TRACE (NEG) Urine RBC 16 /hpf (0-3) Urine WBC 11 /hpf (0-5) Urine Bacteria RARE /hpf (NONE) Urine Yeast (Budding) FEW (NONE) Microscopic Urinalysis Comment CATH-CULTURE IND Uric Acid 4.6 MG/DL (2.6-7.2) Test 05/12/17 10:45 Activated Partial 73.0 SEC Thromboplast Time (24.3-30.1) Sodium Level 137 MEQ/L (136-145) Potassium Level 2.6 MEQ/L (3.5-5.1) Chloride Level 95 MEQ/L (98-107) Carbon Dioxide Level 29.7 MEQ/L (21.0-32.0) Anion Gap 12 MEQ/L (5-15) Blood Urea Nitrogen 35 MG/DL (7-18) Creatinine 5.96 MG/DL (0.60-1.30) Estimat Glomerular Filtration 12 ML/MIN (>89) Rate Random Glucose 106 MG/DL (74-106) Calcium Level 8.6 MG/DL (8.5-10.1) Total Bilirubin 0.7 MG/DL (0.2-1.0) Aspartate Amino Transf 13 U/L (15-37) (AST/SGOT) Alanine Aminotransferase 8 U/L (12-78) (ALT/SGPT) Alkaline Phosphatase 148 U/L (45-117) Total Protein 6.7 GM/DL (6.4-8.2) Albumin 2.0 GM/DL (3.4-5.0) Amylase Level 79 U/L (25-115) Lipase 926 U/L (73-393) Result Diagram: 05/12/17 0521 05/12/17 1045 Microbiology Microbiology Date/Time Procedure Status Source Growth 05/11/17 15:00 Urine Culture - Preliminary Resulted Urine Catheterized Urine NO GROWTH IN 24 HOURS. Procedures * 05/10/17 -medically extubated * 05/06/17 -Left internal jugular Vas-Cath placement * 05/02/17 -intubation * 04/22/17 -axillary lymph node biopsy * 04/27/17 -bone marrow biopsy * 04/28/17 -MediPort placement . Assessment and Plan Disease Oriented Problem List: (1) Non-Hodgkin lymphoma (2) Acute pancreatitis (3) ALDO (acute kidney injury) Symptom Scale: (1) Shortness of breath 0-10 Scale: Unable to quantify Comment: Medically extubated on 05/10/17. Currently tolerating O2 via nasal cannula. (2) Debility 0-10 Scale: Unable to quantify Pertinent Non-Medical Issues Psychosocial: Single, unemployed. Has 8 children. Highest level of education is eighth grade. No service. Spiritual: No anabaptist affiliations. Legal: Designation of healthcare surrogate completed. Ethical issues impacting care: No ethical issues identified. Patient participating in medical decision-making. . Important Contacts HCS/mother Nu Seals . Alt HCS/sister France Garcia . . Prognosis Mr. Werner is a 47-year-old male with no significant medical history, recently diagnosed with with aggressive CD10 positive B-cell non-Hodgkin lymphoma. Clinical course complicated by PE status post TPA, cardiogenic shock, acute hypoxemic respiratory failure requiring intubation and mechanical ventilation and worsening acute kidney injury. Patient at a very high risk for sudden cardiac and additional complications. Prognosis is guarded. . Code Status: Full Code Plan * CODE STATUS: FULL code. * HEALTHCARE DECISION-MAKING: Patient recently medically extubated, slow to respond but able to communicate needs. Designation of healthcare surrogate completed, patient designated his mother Oxana Seals as HCS and alt HCS sister France Garcia. Palliative care recommends shared decision-making at this time. * GOALS OF CARE: pt's mother acting as HCS, electing to continue aggressive management to include full code. Family receptive to palliative care f/u for medical updates and emotional support. Patient's mother frequently calls palliative care for medical updates. * SYMPTOMS: = Shortness of breath, secondary to bilateral pleural effusions/ acute hypoxemic respiratory failure. Successfully medically extubated on , tolerating O2 via nasal cannula at 3 L. Pulmonology following. = Debility, secondary to burden of disease, acute illness, prolonged hospitalization. Will likely require rehabilitation upon discharge. * Spiritual services following for family support. * Palliative care contact information has been provided to family. * Palliative care will continue to follow-up as needed for further clarifications of goals of care, provide emotional support as patient's clinical course continues to evolve. . Time Spent Total Floor Time (mins): 24 (Total time to include review medical records, physical exam, telephone conversation with patient's mother and case discussion with bedside RN Leticia.) >50% Counseling/Coord of Care: Yes Attestation To help prompt me to consider important information that might be impacting today's encounter and assessment, information from prior notes written by myself or my colleagues may have been "brought forward" into today's note. My signature on this note, however, is an attestation that I personally performed the exam, history, and/or decision-making noted today, and, unless otherwise indicated, the interactions with patient, family, and staff as well as the review of records all occurred today. I also attest that the listed assessment and stated plan reflect my best clinical judgment today based on the combination of historical information, prior notes, and today's exam/ interactions. When time spent is documented, it refers only to time spent today by the signer, or if indicated, combined time spent today by collaborating physician/nurse practitioner. Demetrice Brody May 12, 2017 13:42
[2017-05-12] MEDS ORDERED: POTASSIUM CHLOR 40 MEQ PREMIX 100 ML IV ONE (13:45)
--- NOTE | 2017-05-12 14:56 | HHI.GIFU ---
Subjective Remarks Pt awake, in no apparent distress. Denies abd pain today. Refusing NGT, initially refusing flagyl but finally persuaded to accept by the nurse. Per RN is he is not more distended than yesterday, no n/v, having less liquid stool than yesterday. (Freya Figueroa) Objective Vitals I&O Vital Signs Date Time Temp Pulse Resp B/P Pulse Ox O2 Delivery O2 Flow Rate FiO2 05/12/17 14:00 79 05/12/17 12:00 98.1 81 14 107/56 92 05/12/17 12:00 81 05/12/17 11:00 84 37 93/52 95 05/12/17 10:00 80 26 104/55 05/12/17 10:00 80 05/12/17 09:16 98 Nasal Cannula 2.00 05/12/17 09:00 81 30 111/54 99 05/12/17 08:00 98.5 85 27 120/59 99 05/12/17 08:00 85 05/12/17 07:00 84 28 116/59 100 05/12/17 06:00 83 05/12/17 04:00 84 05/12/17 04:00 98.6 84 23 116/57 99 05/12/17 02:00 91 05/12/17 00:00 92 05/12/17 00:00 98.4 92 28 121/63 96 05/11/17 22:00 92 05/11/17 20:00 91 05/11/17 20:00 98.6 91 18 112/59 96 05/11/17 18:00 92 05/11/17 16:00 87 05/11/17 16:00 98.0 87 32 110/57 97 05/11/17 15:01 94 Nasal Cannula 2.00 05/11/17 15:00 87 33 110/55 94 I/O 05/11/17 05/11/17 05/11/17 05/12/17 05/12/17 05/12/17 07:00 15:00 23:00 07:00 15:00 23:00 Intake Total 125 ml 259 ml 103 ml 356 ml 138 ml Output Total 2550 ml 0 ml Balance 125 ml 259 ml -2447 ml 356 ml 138 ml Intake Oral 240 ml IV Total 125 ml 259 ml 103 ml 116 ml 138 ml Output Urine Total 50 ml 0 ml Hemodialysis 2500 ml # Voids 1 0 # Bowel Movements 3 4 3 2 Laboratory Laboratory Tests Test 05/11/17 05/12/17 05/12/17 15:00 05:21 10:45 Urine Color LIGHT-RED Urine Turbidity HAZY Urine pH 6.0 Urine Specific [place] 1.032 Urine Protein 100 Urine Glucose (UA) NEG Urine Ketones TRACE Urine Occult Blood SMALL Urine Nitrite NEG Urine Bilirubin NEG Urine Urobilinogen LESS THAN 2.0 Urine Leukocyte Esterase TRACE Urine RBC 16 Urine WBC 11 Urine Bacteria RARE Urine Yeast (Budding) FEW Microscopic Urinalysis Comment CATH-CULTURE IND White Blood Count 19.7 Red Blood Count 2.58 Hemoglobin 7.4 Hematocrit 22.1 Mean Corpuscular Volume 85.6 Mean Corpuscular Hemoglobin 28.6 Mean Corpuscular Hemoglobin 33.4 Concent Red Cell Distribution Width 16.4 Platelet Count 416 Mean Platelet Volume 7.2 Neutrophils (%) (Auto) 95.1 Lymphocytes (%) (Auto) 1.8 Monocytes (%) (Auto) 2.7 Eosinophils (%) (Auto) 0.2 Basophils (%) (Auto) 0.2 Neutrophils # (Auto) 18.7 Lymphocytes # (Auto) 0.3 Monocytes # (Auto) 0.5 Eosinophils # (Auto) 0.0 Basophils # (Auto) 0.0 CBC Comment DIFF FINAL Differential Comment Uric Acid 4.6 Activated Partial 73.0 Thromboplast Time Sodium Level 137 Potassium Level 2.6 Chloride Level 95 Carbon Dioxide Level 29.7 Anion Gap 12 Blood Urea Nitrogen 35 Creatinine 5.96 Estimat Glomerular Filtration 12 Rate Random Glucose 106 Calcium Level 8.6 Total Bilirubin 0.7 Aspartate Amino Transf 13 (AST/SGOT) Alanine Aminotransferase 8 (ALT/SGPT) Alkaline Phosphatase 148 Total Protein 6.7 Albumin 2.0 Amylase Level 79 Lipase 926 Date/Time Procedure Status Source Growth 05/11/17 15:00 Urine Culture - Preliminary Resulted Urine Catheterized Urine NO GROWTH IN 24 HOURS. Imaging Last Impressions Chest X-Ray 05/12/17 0600 Signed Impressions: Service Date/Time: Friday, May 12, 2017 03:33 - CONCLUSION: 1. No significant change in the hazy opacity in the perihilar regions of both lung bases. 2. The right paratracheal mass is unchanged. 3. Interval extubation and removal of nasogastric tube. Goldy Suarez MD Abdomen X-Ray 05/12/17 0600 Signed Impressions: Service Date/Time: Friday, May 12, 2017 03:36 - CONCLUSION: No significant change in the bowel gas pattern. Goldy Suarez MD Abdomen/Pelvis CT 05/09/17 0000 Signed Impressions: Service Date/Time: Tuesday, May 09, 2017 21:16 - CONCLUSION: 1. Diffusely distended loops of small bowel down to the cecum suggest ileus. 2. Evidence of mesenteric and retroperitoneal adenopathy. 3. Large bilateral pleural effusions , moderate amount of free fluid in the pelvis and mild ascites in the upper abdomen. 4. Abnormal appearance to the parenchyma of the right kidney with patchy areas of hyperdensity in a mosaic pattern. This of uncertain significance. The patient had iodinated contrast for a CT pulmonary angiogram 7 days ago; this could potentially represent residual parenchymal contrast which would be nonspecific, but raises the possibility of either obstruction or renal infarctions. rByon Evans MD Renal Ultrasound 05/05/17 0000 Signed Impressions: Service Date/Time: Friday, May 05, 2017 20:06 - CONCLUSION: 1. Kidneys are borderline echogenic which can be seen with medical renal disease. 2. No evidence of hydronephrosis. 3. Abdominal ascites. 4. Multiple dilated bowel loops. 5. Bilateral pleural effusions. Tray Patel MD Head CT 05/03/17 0000 Signed Impressions: Service Date/Time: Wednesday, May 03, 2017 17:22 - CONCLUSION: No acute intracranial disease. No hemorrhage seen. Tray Patel MD CT Angiography 05/02/17 0000 Signed Impressions: Service Date/Time: Tuesday, May 02, 2017 11:10 - CONCLUSION: 1. There is pulmonary embolus in the right pulmonary artery, right upper lobe and lower lobe branches. 2. Resorption of previously seen gas in the left axilla with fluid collection at this site with postprocedural change and possibly postprocedural hemorrhage not significantly changed in size. 3. Interval development of right lung airspace process may represent postobstructive pneumonia and there is mucus within the trachea not present yesterday. 4. Right pleural effusion is smaller and left pleural effusion is larger. 5. No change in bulky adenopathy. Leonor Chavez MD Upper Extremity Ultrasound 04/30/17 0000 Signed Impressions: Service Date/Time: April 12:25 - CONCLUSION: There some superficial thrombosis of a vein in the forearm. The deep venous system is patent. Large fluid collection left axilla. Significant soft tissue edema throughout the upper arm. Rinku Hillman MD Thoracentesis Ultrasound 04/30/17 0000 Signed Impressions: Service Date/Time: April 12:14 - CONCLUSION: Uncomplicated ultrasound guided thoracentesis. Tray Patel MD Port Line Insertion 04/27/17 0000 Signed Impressions: Service Date/Time: Thursday, April 27, 2017 14:56 - CONCLUSION: 1. Bulky bilateral lower cervical lymphadenopathy. 2. Uncomplicated ultrasound and fluoroscopic guided implanted central venous port catheter placement as described in detail above. An 8 [place] [employer] port was placed. Liang Peralta MD Bone Biopsy CT 04/27/17 0000 Signed Impressions: Service Date/Time: Thursday, April 27, 2017 16:22 - CONCLUSION: 1. Uncomplicated CT guided bone marrow aspirate. 2. Uncomplicated CT guided bone marrow biopsy. Tray Patel MD Chest CT 04/25/17 0000 Signed Impressions: Service Date/Time: Wednesday, April 26, 2017 19:00 - CONCLUSION: The right pleural effusion is slightly larger on the left side has not changed. Extensive bulky adenopathy as before and malignancies such as lymphoma is suspected. Leonor Chavez MD Gall Bladder Ultrasound 04/22/17 0000 Signed Impressions: Service Date/Time: Saturday, April 22, 2017 07:35 - CONCLUSION: Small liver with focal abdomen only incompletely evaluated. Large right pleural effusion. effusion. Kirk Briceño MD FACR Abdomen CT 04/20/17 0000 Signed Impressions: Service Date/Time: Thursday, April 20, 2017 19:40 - CONCLUSION: Limited exam because of lack of intravenous contrast. Lymphoma is suspected. Pathological diagnosis could be obtained with ultrasound biopsy of the cervical, axillary or inguinal adenopathy. Kirk Briceño MD FACR Physical Exam HEENT: PERRL. Normocephalic; atraumatic; no jaundice. CHEST: CTA CARDIAC: RRR ABDOMEN: soft, mildly Distended, nontender; no hepatosplenomegaly; bowel sounds hypoactive EXTREMITIES: Trace peripheral edema. SKIN: Normal; no rash; no jaundice. 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 KUB 7-31 showing mod to severe ileus; fu KUB 8-1 no significant change from previous. KUB 05/08/17--Air-filled mildly dilated loops of small bowel suggesting ileus or partial small bowel obstruction. Abdomen/Pelvis CT 05/09/17-- 1. Diffusely distended loops of small bowel down to the cecum suggest ileus. 2. Evidence of mesenteric and retroperitoneal adenopathy. 3. Large bilateral pleural effusions, moderate amount of free fluid in the pelvis and mild ascites in the upper abdomen. 4. Abnormal appearance to the parenchyma of the right kidney with patchy areas of hyperdensity in a mosaic pattern. This of uncertain significance. The patient had iodinated contrast for a CT pulmonary angiogram 7 days ago; this could potentially represent residual parenchymal contrast which would be nonspecific, but raises the possibility of either obstruction or renal infarctions. General surgery following. - c diff - pos tox c diff PCR. on Flagyl. - leukocytosis - wbc 19.7 today - Acute hypoxic respiratory failure, Chest X-Ray 05/10/17--Tubes and catheters are in good position. Bilateral pleural effusions persist. 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 - if n/v, or increased abd distention, reattempt NGT - GS following - continue flagyl - NPO - TF on hold - Further recommendations to follow based on results of above Patient seen and examined by Dr. Park and myself and this note is written on her behalf. (Freya Figueroa) Physician Comments seen, examined agree with above speech therapy evaluation , may start po diet replace electrolytes (Daily Park MD) Freya Figueroa May 12, 2017 14:56 Daily Park MD May 12, 2017 17:09
--- NOTE | 2017-05-12 15:06 | HHI.CCPN ---
Subjective Remarks/Hospital Course Hospital Course: This is a 47yM who was originally admitted for acute pancreatitis and during this hospital admission found to have an acute aggressive non-hodgkin's lymphoma. he has had progressive shortness of breath secondary to bilateral pleural effusions and adenopathy. He rapid responsed today for worsening hypoxemia on a NRB and in severe respiratory distress. [place] I evaluated the [place] [facility] [place] is in severe respiratory distress, unable to speak, RR > 40, spo2 92% on NRB, using accessory muscles. CXR without over fluid overload. additional information is unobtainable secondary to the clinical condition of the patient. Subjective: 05/03: TPA given overnight. started on heparin drip after. this morning, oligoaneuric with Cr rise to 3.3 this AM. also more hypotensive, although fio2 significantly improved to 45%. bilateral pleural effusions persist. echo yesterday with biventricular dysfunction. hgb stable. 05/04:Flolan decreased to 20 from 30 ngs. Slight improvement in chest x-ray. Epinephrine infusion currently being weaned . Nephrology consulted secondary to continue rising creatinine. 05/05: Hemodynamically stable, epinephrine weaned off yesterday. Nephrology following Dr. Haley with plans for possible dialysis tomorrow. Discussed with hematology oncology plan for reinitiation of chemotherapy with initiation of dialysis. Respiratory system with Flolan decrease stable. Plan to decrease Flolan to 10 ng, with potential for cessation in a.m.. 05/06: No acute issues overnight. Attempts at CPAP trials unsuccessful yesterday. Vascular catheter placement this a.m.. Plan for dialysis today. ABGs obtained, Flolan discontinued today. Possible plan for reinitiation of chemotherapy. 05/07: Overnight the patient was noted to have emesis, and large residual tube feeds. Reglan 10 mg every 8 hours initiated today. Will reinitiate tube feeds at trickle 10 cc/hour. CPAP trials initiated, the patient tolerated CPAP for approximately 3 hours today. Hemodialysis initiated yesterday 2 L off, plan for 2 L removal today. The patient oxygen level maintained, will continue to wean. Repeat echo planned for Thursday, 1 week post TPA. 05/08: The patient successfully went through CPAP trials 3-4 hours yesterday. CPAP trials continue today. The patient was noted to have emesis approximately 2 L over the last 24 hours, despite initiation of her prokinetic, Reglan. Reglan discontinued KUB ordered results pending this a.m.. Bowel regimen expanded. The patient underwent hemodialysis with approximately 2 L removed yesterday. 05/09: The patient remains subtherapeutic on Heparin infusion protocol, PTT 37.2 , per Hematology minimal acceptable range PTT 60. The patient was bolused with Heparin 200units and increased to 1200units. Pending limited ECHO study to evaluate RV strain, Pulm HTN and LV function. New labs pending. Ileus vs possible bowel obstruction, approximately 1100 cc gastric contents overnight. Plan for CT abdomen with PO contrast only 2/2 acute renal failure. 05/10: Jolene orally intubated on mechanical ventilation. Undergoing C Pap trials. 05/11: Extubated on 05/10. On nasal cannula 2 L/m. Awake and alert, following commands this morning. Complains of some shortness of breath. CT abdomen and pelvis done on 05/09 concerning for ileus versus SBO. GI predisposed towards diagnosis of SBO versus ileus. Patient has diarrhea secondary to C. difficile. 05/12: Resting in bed. Comfortable on nasal cannula. Complains of some abdominal discomfort. Objective Vital Signs Date Time Temp Pulse Resp B/P Pulse Ox O2 Delivery O2 Flow Rate FiO2 05/12/17 14:00 79 05/12/17 12:00 98.1 14 107/56 92 05/12/17 09:16 Nasal Cannula 2.00 05/10/17 16:03 35 Intake and Output 05/11/17 05/11/17 05/12/17 08:00 16:00 00:00 Intake Total 125 ml 259 ml 103 ml Output Total 2550 ml Balance 125 ml 259 ml -2447 ml Result Diagram: 05/12/17 0521 05/12/17 1045 Imaging Last Impressions Chest X-Ray 05/06/17 0000 Signed Impressions: Service Date/Time: Saturday, May 06, 2017 12:00 - CONCLUSION: 1. Vas-Cath in good position without pneumothorax. Kirk Briceño MD FACR Renal Ultrasound 05/05/17 0000 Signed Impressions: Service Date/Time: Friday, May 05, 2017 20:06 - CONCLUSION: 1. Kidneys are borderline echogenic which can be seen with medical renal disease. 2. No evidence of hydronephrosis. 3. Abdominal ascites. 4. Multiple dilated bowel loops. 5. Bilateral pleural effusions. Tray Patel MD Head CT 05/03/17 0000 Signed Impressions: Service Date/Time: Wednesday, May 03, 2017 17:22 - CONCLUSION: No acute intracranial disease. No hemorrhage seen. Tray Patel MD CT Angiography 05/02/17 0000 Signed Impressions: Service Date/Time: Tuesday, May 02, 2017 11:10 - CONCLUSION: 1. There is pulmonary embolus in the right pulmonary artery, right upper lobe and lower lobe branches. 2. Resorption of previously seen gas in the left axilla with fluid collection at this site with postprocedural change and possibly postprocedural hemorrhage not significantly changed in size. 3. Interval development of right lung airspace process may represent postobstructive pneumonia and there is mucus within the trachea not present yesterday. 4. Right pleural effusion is smaller and left pleural effusion is larger. 5. No change in bulky adenopathy. Leonor Chavez MD Upper Extremity Ultrasound 04/30/17 0000 Signed Impressions: Service Date/Time: April 12:25 - CONCLUSION: There some superficial thrombosis of a vein in the forearm. The deep venous system is patent. Large fluid collection left axilla. Significant soft tissue edema throughout the upper arm. Rinku Hillman MD Thoracentesis Ultrasound 04/30/17 0000 Signed Impressions: Service Date/Time: April 12:14 - CONCLUSION: Uncomplicated ultrasound guided thoracentesis. Tray Patel MD Port Line Insertion 04/27/17 0000 Signed Impressions: Service Date/Time: Thursday, April 27, 2017 14:56 - CONCLUSION: 1. Bulky bilateral lower cervical lymphadenopathy. 2. Uncomplicated ultrasound and fluoroscopic guided implanted central venous port catheter placement as described in detail above. An 8 [employer] [employer] port was placed. Liang Peralta MD Bone Biopsy CT 04/27/17 0000 Signed Impressions: Service Date/Time: Thursday, April 27, 2017 16:22 - CONCLUSION: 1. Uncomplicated CT guided bone marrow aspirate. 2. Uncomplicated CT guided bone marrow biopsy. Tray Patel MD Chest CT 04/25/17 0000 Signed Impressions: Service Date/Time: Wednesday, April 26, 2017 19:00 - CONCLUSION: The right pleural effusion is slightly larger on the left side has not changed. Extensive bulky adenopathy as before and malignancies such as lymphoma is suspected. Leonor Chavez MD Gall Bladder Ultrasound 04/22/17 0000 Signed Impressions: Service Date/Time: Saturday, April 22, 2017 07:35 - CONCLUSION: Small liver with focal abdomen only incompletely evaluated. Large right pleural effusion. effusion. Kirk Briceño MD FACR Abdomen CT 04/20/17 0000 Signed Impressions: Service Date/Time: Thursday, April 20, 2017 19:40 - CONCLUSION: Limited exam because of lack of intravenous contrast. Lymphoma is suspected. Pathological diagnosis could be obtained with ultrasound biopsy of the cervical, axillary or inguinal adenopathy. Kirk Briceño MD FACR Last Impressions Chest X-Ray 05/03/17 0600 Signed Impressions: Service Date/Time: Wednesday, May 03, 2017 03:46 - CONCLUSION: Improving infiltrates. No Tacos Garcia MD Head CT 05/03/17 0000 Signed Impressions: Service Date/Time: Wednesday, May 03, 2017 17:22 - CONCLUSION: No acute intracranial disease. No hemorrhage seen. Tray Patel MD CT Angiography 05/02/17 0000 Signed Impressions: Service Date/Time: Tuesday, May 02, 2017 11:10 - CONCLUSION: 1. There is pulmonary embolus in the right pulmonary artery, right upper lobe and lower lobe branches. 2. Resorption of previously seen gas in the left axilla with fluid collection at this site with postprocedural change and possibly postprocedural hemorrhage not significantly changed in size. 3. Interval development of right lung airspace process may represent postobstructive pneumonia and there is mucus within the trachea not present yesterday. 4. Right pleural effusion is smaller and left pleural effusion is larger. 5. No change in bulky adenopathy. Leonor Chavez MD Upper Extremity Ultrasound 04/30/17 0000 Signed Impressions: Service Date/Time: April 12:25 - CONCLUSION: There some superficial thrombosis of a vein in the forearm. The deep venous system is patent. Large fluid collection left axilla. Significant soft tissue edema throughout the upper arm. Rinku Hillman MD Thoracentesis Ultrasound 04/30/17 0000 Signed Impressions: Service Date/Time: April 12:14 - CONCLUSION: Uncomplicated ultrasound guided thoracentesis. Tray Patel MD Port Line Insertion 04/27/17 0000 Signed Impressions: Service Date/Time: Thursday, April 27, 2017 14:56 - CONCLUSION: 1. Bulky bilateral lower cervical lymphadenopathy. 2. Uncomplicated ultrasound and fluoroscopic guided implanted central venous port catheter placement as described in detail above. An 8 [employer] [employer] port was placed. Liang Peralta MD Bone Biopsy CT 04/27/17 0000 Signed Impressions: Service Date/Time: Thursday, April 27, 2017 16:22 - CONCLUSION: 1. Uncomplicated CT guided bone marrow aspirate. 2. Uncomplicated CT guided bone marrow biopsy. Tray Patel MD Chest CT 04/25/17 0000 Signed Impressions: Service Date/Time: Wednesday, April 26, 2017 19:00 - CONCLUSION: The right pleural effusion is slightly larger on the left side has not changed. Extensive bulky adenopathy as before and malignancies such as lymphoma is suspected. Leonor Chavez MD Gall Bladder Ultrasound 04/22/17 0000 Signed Impressions: Service Date/Time: Saturday, April 22, 2017 07:35 - CONCLUSION: Small liver with focal abdomen only incompletely evaluated. Large right pleural effusion. effusion. Kirk Briceño MD FACR Abdomen CT 04/20/17 0000 Signed Impressions: Service Date/Time: Thursday, April 20, 2017 19:40 - CONCLUSION: Limited exam because of lack of intravenous contrast. Lymphoma is suspected. Pathological diagnosis could be obtained with ultrasound biopsy of the cervical, axillary or inguinal adenopathy. Kirk Briceño MD FACR Last Impressions Chest X-Ray 05/02/17 0000 Signed Impressions: Service Date/Time: Tuesday, May 02, 2017 08:11 - CONCLUSION: There is mild improvement in aeration of the right lower lung, otherwise not significantly changed. Leonor Chavez MD Upper Extremity Ultrasound 04/30/17 0000 Signed Impressions: Service Date/Time: April 12:25 - CONCLUSION: There some superficial thrombosis of a vein in the forearm. The deep venous system is patent. Large fluid collection left axilla. Significant soft tissue edema throughout the upper arm. Rinku Hillman MD Thoracentesis Ultrasound 04/30/17 0000 Signed Impressions: Service Date/Time: April 12:14 - CONCLUSION: Uncomplicated ultrasound guided thoracentesis. Tray Patel MD Port Line Insertion 04/27/17 0000 Signed Impressions: Service Date/Time: Thursday, April 27, 2017 14:56 - CONCLUSION: 1. Bulky bilateral lower cervical lymphadenopathy. 2. Uncomplicated ultrasound and fluoroscopic guided implanted central venous port catheter placement as described in detail above. An 8 [place] [employer] port was placed. Liang Peralta MD Bone Biopsy CT 04/27/17 0000 Signed Impressions: Service Date/Time: Thursday, April 27, 2017 16:22 - CONCLUSION: 1. Uncomplicated CT guided bone marrow aspirate. 2. Uncomplicated CT guided bone marrow biopsy. Tray Patel MD Chest CT 04/25/17 0000 Signed Impressions: Service Date/Time: Wednesday, April 26, 2017 19:00 - CONCLUSION: The right pleural effusion is slightly larger on the left side has not changed. Extensive bulky adenopathy as before and malignancies such as lymphoma is suspected. Leonor Chavez MD Gall Bladder Ultrasound 04/22/17 0000 Signed Impressions: Service Date/Time: Saturday, April 22, 2017 07:35 - CONCLUSION: Small liver with focal abdomen only incompletely evaluated. Large right pleural effusion. effusion. Kirk Briceño MD FACR Abdomen CT 04/20/17 0000 Signed Impressions: Service Date/Time: Thursday, April 20, 2017 19:40 - CONCLUSION: Limited exam because of lack of intravenous contrast. Lymphoma is suspected. Pathological diagnosis could be obtained with ultrasound biopsy of the cervical, axillary or inguinal adenopathy. Kirk Briceño MD FACR Objective Remarks GENERAL: Well-nourished well-developed middle-aged male, lying in bed on nasal cannula HEENT: perrl. mucous membranes moist NECK: no jvd. trachea midline orotracheally intubated PULM: Right chest Port-A-Cath in situ, clear to auscultation. equal chest rise. Left IJ vas catheter CV: Regular, regular rhythm. No murmurs rubs or gallops ABD: soft, nontender, nondistended. no guarding. EXTREMITIES: trace peripheral edema. distal pulses 2+ NEURO: Awake, alert, following commands. Movement of extremities x 4 Procedures 04/[address] excision biopsy 04/27- port placement 05/02-TPA 05/06-left IJ Vas-Cath placement A/P Assessment and Plan Assessment: 47yM with aggressive large B cell lymphoma, acute pancreatitis, with submassive PE, acute cardiogenic shock, acute hypoxic respiratory failure, now oligoaneuric acute kidney injury secondary to shock. Off epinephrine gtt and inhaled flolan. Extubated on 05/10, May need drainage of his pleural effusions Plan by Systems: Neuro: --Off all sedation. Follow neuro status -- repeat head on 05/03 CT 24h after TPA-no abnormality Respiratory: Acute Hypoxic Respiratory Failure Acute Submassive Pulmonary Embolism Bilateral pleural effusions, large, acute --Every 6 hours scheduled nebs -- wean fio2 for goal spo2 > 90% -- Discontinued inhaled flolan 05/06 -- Follow-up chest x-ray and ABGs --Tolerated C Pap trial and was extubated on 05/10. Remains on nasal cannula. Cardiovascular: Acute Submassive Pulmonary Embolism Right Heart Dysfunction Global severe left ventricular systolic dysfunction Cardiogenic Shock -- high risk for sudden cardiac s/p acute PE -- Epinephrine discontinued 05/04 -- Maintain a goal MAP > 65 mmHg -- 2d echo 05/02: EF 30-35%, RV dysfunction with dilation --Repeat ECHO limited study scheduled on 05/09-RV function appears to have normalized, question of interatrial shunt for which cardiology consulted. Renal: Acute Kidney Injury -- likely secondary to cardiogenic shock - Nephrology following, Dr. Haley --Left IJ vas catheter placement-initiation of hemodialysis -- continue shepadr with strict I/Os. --Hemodialysis per nephrology FEN/GI: Hyperphosphatemia Hyperkalemia Hypocalcemia Acute protein calorie malnutrition- severe Ileus -- per the echo from 05/08, intravascular volume status is appropriate -- 05/08 tube feeds on hold, G-tube to LIWS suction the patient extubated on at which time OG tube was removed --General surgery to follow up on ileus versus SBO. -GI consulted, appreciate recommendations -Expanded bowel regimen MiraLAX, lactulose, due to site suppository -Tube feeds placed on hold. NG tube to low intermittent wall suction due to ileus . 05/11 evening. OG tube removed with extubation on 05/11. -- PhosLo -- daily electrolytes, replete per ICU protocol Heme/ID Acute Large Cell B-cell lymphoma Pulmonary Embolism C. difficile colitis -- hematology/oncology following Dr. Connelly-tentative plan to resume CHOP therapy -- chemo on hold secondary to his acute life-threatening illnesses. Hospital Cook to decide regarding initiation of chemotherapy for lymphoma. -- continue heparin drip,Maintain goal PTT 60 - 80. Discussed with Dr. Yen. Will eventually transition to Coumadin ID following. Continue by mouth Flagyl per ID Endocrine: Hyperglycemia of Critical Illness -- SSI, q6h, med scale Msk: --PT evaluation and treat --Multi-Podus boots --PT daily functional maintenance Prophylaxis: DVT: SCDs, heparin drip GI: protonix Lines: -- port right chest --Left IJ vas catheter, peripheral IVs 2 -- Minh Eric MD May 12, 2017 15:06
--- NOTE | 2017-05-12 15:31 | PD.CONS ---
cc: Geneva Anderson MD HPI Service General Surgery Consult Requested By Dr. Haywood Reason for Consult Evaluation of small bowel obstruction vs ileus Primary Care Physician No Primary Care Physician History of Present Illness This is a 47-year-old male with no past medical history presents to the emergency room with a two-week history of nausea vomiting and diarrhea. Prior to this he was in his normal state of health. His liver enzymes were elevated and thought to be pancreatitis. He presented with a urinary tract infection. A CT scan was obtained which shows diffuse adenopathy in the neck, thorax and abdomen. Lymphoma is suspected. A General Surgery consultation has been requested for an excisional lymph node biopsy of the left axillary. 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 Since last seen, the patient has had acute respiratory failure requiring mechanical ventilation, pulmonary emboli, and acute renal failure requiring hemodialysis. A CT abdomen/pelvis was obtained which was concerning for a small bowel obstruction. The patient is having copious amount of diarrhea. A General Surgery consultation was requested for evaluation of SBO vs ileus. Review of Systems Constitutional: COMPLAINS OF: Weight loss, Change in appetite Endocrine: DENIES: Polydipsia, Polyuria, Polyphagia Eyes: DENIES: Diplopia Ears, nose, mouth, throat: DENIES: Hearing loss Respiratory: DENIES: Cough Cardiovascular: DENIES: Chest pain Gastrointestinal: COMPLAINS OF: Abdominal pain, Diarrhea, Nausea, DENIES: Vomiting Genitourinary: DENIES: Urgency Musculoskeletal: DENIES: Joint pain Integumentary: DENIES: Abnormal pigmentation Hematologic/lymphatic: DENIES: Bruising Immunologic/allergic: DENIES: Eczema Neurologic: COMPLAINS OF: Localized weakness, DENIES: Headache Psychiatric: DENIES: Mood changes, Depression, Hallucinations Past Family Social History Past Medical History None Past Surgical History None Allergies: Coded Allergies: No Known Allergies (Unverified , 04/18/17) Active Ordered Medications Current Medications Medications (Trade) Dose Ordered Sig/Shyla Route Start Time Stop Time Status Last Admin (NS Flush) 2 ml UNSCH PRN IV FLUSH 04/18/17 17:30 04/21/17 22:27 (Narcan Inj) 0.4 mg UNSCH PRN IV 04/18/17 19:30 (Porsha-Colace) 1 tab BID PO 04/18/17 21:00 05/10/17 07:52 (Milk Of Magnesia Liq) 30 ml Q12H PRN PO 04/18/17 19:30 05/09/17 08:01 (Senokot) 17.2 mg Q12H PRN PO 04/18/17 19:30 (Dulcolax Supp) 10 mg DAILY PRN RECTAL 04/18/17 19:30 (Lactulose Liq) 30 ml DAILY PRN PO 04/18/17 19:30 (Heparin Inj) 5,000 units Q8HR SQ 04/19/17 14:00 Hold 05/02/17 12:46 (Apresoline Inj) 10 mg Q6HR PRN IV PUSH 04/21/17 17:00 04/27/17 10:15 (Procardia Xl) 90 mg DAILY PO 04/28/17 09:00 05/12/17 08:50 Clonidine 0.1 mg 0.1 mg Q6H PRN PO 04/27/17 15:00 04/29/17 08:07 (Vepesid Inj/ Adriamycin Inj/ Oncovin Inj/NS 500 ml ([place] Bag) Inj) 515.089 ml @ 21.462 mls/hr Q24H IV 04/30/17 15:00 05/04/17 14:59 Hold (Zofran Inj) 4 mg Q6HR PRN IV PUSH 04/30/17 11:30 05/07/17 10:06 (Phenergan Inj) 25 mg Q6H PRN IM 04/30/17 11:30 05/01/17 13:27 ([place] 5-325 Mg) 1 tab Q6H PRN PO 04/30/17 11:30 05/12/17 02:48 (D50w (Vial) Inj) 25 ml UNSCH PRN IV PUSH 05/02/17 10:00 (NovoLIN R SUPPLEMENTAL SCALE) 1 Q6HR SQ 05/02/17 12:00 05/04/17 18:00 Chlorhexidine Gluconate 15 ml 15 ml BID@08,20 MT 05/02/17 20:00 05/10/17 07:52 Fentanyl Citrate 250 ml @ 0 mls/hr TITRATE IV 05/02/17 10:00 05/10/17 05:36 (Diprivan 1000 Mg/100ml Inj) 100 ml @ 0 mls/hr TITRATE IV 05/02/17 10:00 05/10/17 06:54 Miscellaneous Information Patient in critical care unit? Ass... Q361D .XX 05/02/17 17:15 05/02/17 17:30 (Heparin-D5W Inj) 250 ml @ 0 mls/hr TITRATE IV 05/03/17 02:00 05/12/17 05:17 (Phoslo) 2,668 mg TID PO 05/03/17 09:00 05/12/17 14:22 (Zyloprim) 200 mg DAILY PO 05/06/17 09:00 05/12/17 08:49 (Protonix Inj) 40 mg DAILY IV PUSH 05/07/17 12:00 05/12/17 08:49 Artificial Tears 1 applic 1 applic Q8H EACH EYE 05/07/17 18:00 05/12/17 01:30 (NS 1000 ml Inj) 1,000 ml @ 0 mls/hr TITRATE PRN IV 05/07/17 18:00 05/11/17 18:29 Heparin Sodium (Porcine) 8000 units 8,000 units UNSCH PRN IV FLUSH 05/07/17 18:00 Sodium Chloride 1,000 ml @ 200 mls/hr Q5H PRN IV 05/07/17 18:00 (NS 250 ml Inj) 200 ml @ 0 mls/hr UNSCH PRN IV 05/07/17 18:00 (Mannitol Inj) 12.5 gm UNSCH PRN IV 05/07/17 18:00 (Albumin 25% Inj) 25 gm UNSCH PRN IV 05/07/17 18:00 (NS Flush) 5 ml UNSCH PRN IV FLUSH 05/07/17 18:00 (Heparin Inj) Dwell Heparin to f... UNSCH PRN OTHER 05/07/17 18:00 05/11/17 18:30 (Gentamicin (Dialysis) Inj) 10 mg UNSCH PRN OTHER 05/07/17 18:00 05/11/17 18:29 (Gelfoam 12 Mm/7 Mm Top) 1 foam UNSCH PRN TOPICAL 05/07/17 18:00 (Zofran Inj) 4 mg UNSCH PRN IV 05/07/17 18:00 (Benadryl) 25 mg UNSCH PRN PO 05/07/17 18:00 (Nitrostat Sl) 0.4 mg UNSCH PRN SL 05/07/17 18:00 (Catapres) 0.1 mg UNSCH PRN PO 05/07/17 18:00 (Miralax) 17 gm DAILY PO 05/08/17 09:00 05/10/17 07:52 (Lactulose Liq) 30 ml BID PO 05/08/17 09:00 05/10/17 07:51 (Carafate Liq) 1 gm Q8HR PO 05/10/17 14:00 05/13/17 13:59 05/12/17 05:27 Metronidazole 500 mg 500 mg Q8HR PO 05/11/17 14:00 05/12/17 14:22 (KCl 40 Meq Premix Inj) 100 ml @ 25 mls/hr ONCE ONCE IV 05/12/17 13:45 05/12/17 17:44 05/12/17 13:51 Family History No family history of cancer Social History Tobacco usesmoked about 1 ppd for many years but quit 2 months before admission EtOH usedrink about 8 beers per day for several years but quit 2 months before admission Denies illicit drug use Physical Exam Vital Signs Vital Signs Date Time Temp Pulse Resp B/P Pulse Ox O2 Delivery O2 Flow Rate FiO2 05/12/17 14:00 79 05/12/17 12:00 98.1 81 14 107/56 92 05/12/17 12:00 81 05/12/17 11:00 84 37 93/52 95 05/12/17 10:00 80 26 104/55 05/12/17 10:00 80 05/12/17 09:16 98 Nasal Cannula 2.00 05/12/17 09:00 81 30 111/54 99 05/12/17 08:00 98.5 85 27 120/59 99 05/12/17 08:00 85 05/12/17 07:00 84 28 116/59 100 05/12/17 06:00 83 05/12/17 04:00 84 05/12/17 04:00 98.6 84 23 116/57 99 05/12/17 02:00 91 05/12/17 00:00 92 05/12/17 00:00 98.4 92 28 121/63 96 05/11/17 22:00 92 05/11/17 20:00 91 05/11/17 20:00 98.6 91 18 112/59 96 05/11/17 18:00 92 05/11/17 16:00 87 05/11/17 16:00 98.0 87 32 110/57 97 Physical Exam GENERAL: 47 year old male resting in bed in mild discomfort SKIN: Warm and dry. HEAD: Atraumatic. Normocephalic. EYES: Pupils equal and round. No scleral icterus. No injection or drainage. ENT: No nasal bleeding or discharge. Mucous membranes dry. NECK: Trachea midline. CARDIOVASCULAR: Regular rate and rhythm. RESPIRATORY: No accessory muscle use. Clear to auscultation. Breath sounds equal bilaterally. GASTROINTESTINAL: Abdomen soft, mildly distended; minimal pain with palpation. MUSCULOSKELETAL: Extremities without clubbing, cyanosis, or edema. No obvious deformities. NEUROLOGICAL: Awake and alert. No obvious cranial nerve deficits. Motor grossly within normal limits. Normal speech. PSYCHIATRIC: Appropriate mood and affect; insight and judgment normal. Laboratory Laboratory Tests Test 05/12/17 05/12/17 05:21 10:45 White Blood Count 19.7 Red Blood Count 2.58 Hemoglobin 7.4 Hematocrit 22.1 Mean Corpuscular Volume 85.6 Mean Corpuscular Hemoglobin 28.6 Mean Corpuscular Hemoglobin 33.4 Concent Red Cell Distribution Width 16.4 Platelet Count 416 Mean Platelet Volume 7.2 Neutrophils (%) (Auto) 95.1 Lymphocytes (%) (Auto) 1.8 Monocytes (%) (Auto) 2.7 Eosinophils (%) (Auto) 0.2 Basophils (%) (Auto) 0.2 Neutrophils # (Auto) 18.7 Lymphocytes # (Auto) 0.3 Monocytes # (Auto) 0.5 Eosinophils # (Auto) 0.0 Basophils # (Auto) 0.0 CBC Comment DIFF FINAL Differential Comment Uric Acid 4.6 Activated Partial 73.0 Thromboplast Time Sodium Level 137 Potassium Level 2.6 Chloride Level 95 Carbon Dioxide Level 29.7 Anion Gap 12 Blood Urea Nitrogen 35 Creatinine 5.96 Estimat Glomerular Filtration 12 Rate Random Glucose 106 Calcium Level 8.6 Total Bilirubin 0.7 Aspartate Amino Transf 13 (AST/SGOT) Alanine Aminotransferase 8 (ALT/SGPT) Alkaline Phosphatase 148 Total Protein 6.7 Albumin 2.0 Amylase Level 79 Lipase 926 Date/Time Procedure Status Source Growth 05/11/17 15:00 Urine Culture - Preliminary Resulted Urine Catheterized Urine NO GROWTH IN 24 HOURS. Result Diagram: 05/12/17 0521 05/12/[address] scan was obtained which shows diffuse adenopathy in the neck, thorax and abdomen. Assessment and Plan Assessment and Plan 47 year old male s/p LN bx with pathology revealing diffuse large B cell lymphoma; complicated admission with acute respiratory failure and acute renal failure; SBO vs ileus -+BM; +C-diff -Okay for sips of water; ice chips and popsicles -NGT only if nausea/vomiting occur -Likely ileus due to multiple problems -Continue non operative treatment I CERTIFY AND ATTEST THAT I PERSONALLY EXAMINED THE PATIENT IN THEIR ROOM. MS QUINTEROS DOCUMENTED OUR VISIT. BASED ON THE FACT THAT THE PATIENT HAS NO PREVIOUS ABDOMINAL SURGERIES AND IS CURRENTLY HAVING DIARRHEA I THINK THAT A MECHANICAL SBO IS HIGHLY UNLIKELY. I WOULD FAVOR A RESOLVING ILEUS THE DIAGNOSIS. RECOMMEND MEDICAL MANAGEMENT. GENEVA ANDERSON MD FACS Discussed Condition With Dr. Anderson Black Alphonso QuinterosToshiaP May 12, 2017 15:31 Geneva Anderson MD May 16, 2017 16:03
--- NOTE | 2017-05-12 18:24 | HHI.NPPN ---
Subjective History of Present Illness 47-year-old male with no known past medical history who came to the hospital with complaint of nausea, vomiting and abdominal pain on April 18. I was called to see the patient because of elevated BUN and creatinine. The patient had a creatinine of 1.3 on presentation which improved to 0.7 and 0.8, then started increasing for last few days. Additional Remarks Patient is awake, not fully oriented, not in distress. Objective Data Data 05/11/17 05/12/17 18:59 06:59 Intake Total 259 ml 459 ml Output Total 2550 ml Balance 259 ml -2091 ml Intake Oral 240 ml IV Total 259 ml 219 ml Output Urine Total 50 ml Hemodialysis 2500 ml # Voids 1 # Bowel Movements 4 3 Vital Signs Date Time Temp Pulse Resp B/P Pulse Ox O2 Delivery O2 Flow Rate FiO2 05/12/17 18:00 80 05/12/17 16:00 79 05/12/17 16:00 98.5 79 45 105/51 97 05/12/17 15:00 81 21 102/56 100 05/12/17 14:00 79 05/12/17 14:00 79 21 106/57 100 05/12/17 13:00 79 21 111/59 100 05/12/17 12:00 98.1 81 14 107/56 92 05/12/17 12:00 81 05/12/17 11:00 84 37 93/52 95 05/12/17 10:00 80 26 104/55 05/12/17 10:00 80 05/12/17 09:16 98 Nasal Cannula 2.00 05/12/17 09:00 81 30 111/54 99 05/12/17 08:00 98.5 85 27 120/59 99 05/12/17 08:00 85 05/12/17 07:00 84 28 116/59 100 05/12/17 06:00 83 05/12/17 04:00 84 05/12/17 04:00 98.6 84 23 116/57 99 05/12/17 02:00 91 05/12/17 00:00 92 05/12/17 00:00 98.4 92 28 121/63 96 05/11/17 22:00 92 05/11/17 20:00 91 05/11/17 20:00 98.6 91 18 112/59 96 -: 05/12/17 0521 05/12/17 1045 Physical Exam General Appearance: Anxious, Malnourished Eyes Eye Exam: Pupils Equal Throat Throat Exam: Oral Mucosa Bogart & Moist Pulmonary Resp Exam: Crackles, Rhonchi, Decreased Bases, Diminished Breath Sounds, Poor Inspiratory Effort Cardiology CV Exam: Regular, Normal Sinus Rhythm Gastrointestinal/Abdomen GI Exam: Soft, Non-Tender, Bowel Sounds Present, Distended Extremeties Extremities Exam: Trace Edema Neurologic Neuro Exam: Awake Assessment/Plan Assessment Summary: ALDO/Acute Renal Failure Problem List: (1) Non-Hodgkin lymphoma (2) Adenopathy (3) Pleural effusion (4) Shortness of breath (5) Pulmonary emboli (6) Acute pancreatitis (7) ALDO (acute kidney injury) Plan Patient has minimal urine out put. Urine Na. was low, and Eosinophils negative. Urine out put remain minimal. Patient is extubated. HD done yesterday. Urine out put is [id number]. Now has C. Difficile colitis. Continue antibiotics. K was low and replaced. HD will be in AM. Problem Qualifiers (1) Non-Hodgkin lymphoma: (2) Acute pancreatitis: Qualified Code: K85.20 - Alcohol-induced acute pancreatitis, unspecified complication status Leonid Haley MD May 12, 2017 18:23
[2017-05-13] VITALS (16 sets, daily range): BP systolic 105–121; BP diastolic 54–60; PULSE 76–81; RESP 19–24; TEMP 97.7–99.1; O2SAT 96–100
[2017-05-13] MEDS: ARTIFICIAL TEARS OPTH OINT 3.5 APPLIC/3.5 GM TUBO EACH EYE SCH ×3 (01:35→18:00)
[2017-05-13] MEDS: SUCRALFATE 1 GM/10 ML CUP PO SCH (04:46)
[2017-05-13] MEDS: metroNIDAZOLE 500 MG TAB PO SCH ×3 (04:46→20:51)
[2017-05-13] MEDS: INSULIN NovoLIN REGULAR SUPPLEMENTAL SCALE SQ SCH ×3 (04:47→18:00)
[2017-05-13 05:30] LABS: AUTOMATED NEUTROPHIL # 8.1 TH/MM3 (1.8-7.7); BASOPHIL % 0.4 % (0.0-2.0); EOSINOPHIL # 0.1 TH/MM3 (0-0.4); HEMATOCRIT 33.1 % (39.0-51.0); HEMO FLAGS DIFF FINAL; LYMPH % 3.1 % (9.0-44.0); LYMPHOCYTE # 0.3 TH/MM3 (1.0-4.8); MEAN CELL VOLUME 85.4 FL (80.0-100.0); MEAN CORPUSCULAR HEMOGLOBIN 28.4 PG (27.0-34.0); MEAN CORPUSCULAR HGB CONC 33.3 % (32.0-36.0); MONO % 2.8 % (0.0-8.0); NEUT % 92.7 % (16.0-70.0); PLATELET COUNT 327 TH/MM3 (150-450); RED BLOOD COUNT 3.87 MIL/MM3 (4.50-5.90); RED CELL DISTRIBUTION WIDTH 16.5 % (11.6-17.2); WHITE BLOOD COUNT 8.7 TH/MM3 (4.0-11.0)
--- NOTE | 2017-05-13 07:30 | PD.ONC.PN ---
Subjective Subjective Remarks Still weak. No abdominal pain. +diarrhea. No CP/SOB. Minimal urine output. Objective Data Date Time Temp Pulse Resp B/P Pulse Ox O2 Delivery O2 Flow Rate FiO2 05/13/17 06:00 80 05/13/17 04:00 80 05/13/17 04:00 98.1 80 23 117/59 99 05/13/17 02:00 79 05/13/17 00:00 97.7 80 19 105/54 99 05/13/17 00:00 80 05/12/17 22:00 80 05/12/17 20:03 96 Nasal Cannula 2.00 05/12/17 20:00 98.1 80 17 112/57 97 05/12/17 20:00 81 05/12/17 18:00 80 05/12/17 16:00 79 05/12/17 16:00 98.5 79 45 105/51 97 05/12/17 15:00 81 21 102/56 100 05/12/17 14:00 79 05/12/17 14:00 79 21 106/57 100 05/12/17 13:00 79 21 111/59 100 05/12/17 12:00 98.1 81 14 107/56 92 05/12/17 12:00 81 05/12/17 11:00 84 37 93/52 95 05/12/17 10:00 80 26 104/55 05/12/17 10:00 80 05/12/17 09:16 98 Nasal Cannula 2.00 05/12/17 09:00 81 30 111/54 99 05/12/17 08:00 98.5 85 27 120/59 99 05/12/17 08:00 85 Result Diagram: 05/13/17 0454 05/12/17 1045 Laboratory Results Laboratory Tests Test 05/12/17 05/13/17 10:45 04:54 Activated Partial 73.0 SEC Thromboplast Time Sodium Level 137 MEQ/L Potassium Level 2.6 MEQ/L Chloride Level 95 MEQ/L Carbon Dioxide Level 29.7 MEQ/L Anion Gap 12 MEQ/L Blood Urea Nitrogen 35 MG/DL Creatinine 5.96 MG/DL Estimat Glomerular Filtration 12 ML/MIN Rate Random Glucose 106 MG/DL Calcium Level 8.6 MG/DL Total Bilirubin 0.7 MG/DL Aspartate Amino Transf 13 U/L (AST/SGOT) Alanine Aminotransferase 8 U/L (ALT/SGPT) Alkaline Phosphatase 148 U/L Total Protein 6.7 GM/DL Albumin 2.0 GM/DL Amylase Level 79 U/L Lipase 926 U/L White Blood Count 8.7 TH/MM3 Red Blood Count 3.87 MIL/MM3 Hemoglobin 11.0 GM/DL Hematocrit 33.1 % Mean Corpuscular Volume 85.4 FL Mean Corpuscular Hemoglobin 28.4 PG Mean Corpuscular Hemoglobin 33.3 % Concent Red Cell Distribution Width 16.5 % Platelet Count 327 TH/MM3 Mean Platelet Volume 7.1 FL Neutrophils (%) (Auto) 92.7 % Lymphocytes (%) (Auto) 3.1 % Monocytes (%) (Auto) 2.8 % Eosinophils (%) (Auto) 1.0 % Basophils (%) (Auto) 0.4 % Neutrophils # (Auto) 8.1 TH/MM3 Lymphocytes # (Auto) 0.3 TH/MM3 Monocytes # (Auto) 0.2 TH/MM3 Eosinophils # (Auto) 0.1 TH/MM3 Basophils # (Auto) 0.0 TH/MM3 CBC Comment DIFF FINAL Differential Comment Culture Results Microbiology Date/Time Procedure Status Source Growth 05/11/17 15:00 Urine Culture - Preliminary Resulted Urine Catheterized Urine NO GROWTH IN 24 HOURS. Administered Medications Medications (Trade) Dose Ordered Sig/Shyla Route PRN Reason Start Time Stop Time Status Last Admin Dose Admin Sodium Chloride (NS Flush) 2 ml UNSCH PRN IV FLUSH FLUSH AFTER USING IV ACCESS 04/18/17 17:30 04/21/17 22:27 Senna/Docusate Sodium (Porsha-Colace) 1 tab BID PO 04/18/17 21:00 05/10/17 07:52 Magnesium Hydroxide (Milk Of Magnesia Liq) 30 ml Q12H PRN PO MILD - MODERATE CONSTIPATION 04/18/17 19:30 05/09/17 08:01 Heparin Sodium (Porcine) (Heparin Inj) 5,000 units Q8HR SQ 04/19/17 14:00 Hold 05/02/17 12:46 Hydralazine HCl (Apresoline Inj) 10 mg Q6HR PRN IV PUSH SBP>160, DBP>90 04/21/17 17:00 04/27/17 10:15 Nifedipine (Procardia Xl) 90 mg DAILY PO 04/28/17 09:00 8/1/17 08:50 Clonidine (Catapres) 0.1 mg Q6H PRN PO SBP>160, DBP>90 04/27/17 15:00 04/29/17 08:07 Ondansetron HCl (Zofran Inj) 4 mg Q6HR PRN IV PUSH NAUSEA OR VOMITING 04/30/17 11:30 05/07/17 10:06 Promethazine HCl (Phenergan Inj) 25 mg Q6H PRN IM NAUSEA OR VOMITING 04/30/17 11:30 05/01/17 13:27 Acetaminophen/ Hydrocodone Bitart ([place] 5-325 Mg) 1 tab Q6H PRN PO PAIN SCALE 1 TO 10 04/30/17 11:30 05/12/17 02:48 Insulin Human Regular (NovoLIN R SUPPLEMENTAL SCALE) 1 Q6HR SQ 05/02/17 12:00 05/04/17 18:00 Chlorhexidine Gluconate 15 ml 15 ml BID@08,20 MT 05/02/17 20:00 05/10/17 07:52 Fentanyl Citrate 250 ml @ 0 mls/hr TITRATE IV 05/02/17 10:00 05/10/17 05:36 Propofol (Diprivan 1000 Mg/100ml Inj) 100 ml @ 0 mls/hr TITRATE IV 05/02/17 10:00 05/10/17 06:54 Miscellaneous Information Patient in critical care unit? Ass... Q361D .XX 05/02/17 17:15 05/02/17 17:30 Heparin Sodium/ Dextrose (Heparin-D5W Inj) 250 ml @ 0 mls/hr TITRATE IV 05/03/17 02:00 05/12/17 23:20 Calcium Acetate (Phoslo) 2,668 mg TID PO 05/03/17 09:00 05/12/17 17:52 Allopurinol (Zyloprim) 200 mg DAILY PO 05/06/17 09:00 05/12/17 08:49 Pantoprazole Sodium (Protonix Inj) 40 mg DAILY IV PUSH 05/07/17 12:00 05/12/17 08:49 Artificial Tears 1 applic 1 applic Q8H EACH EYE 05/07/17 18:00 05/13/17 01:35 Sodium Chloride (NS 1000 ml Inj) 1,000 ml @ 0 mls/hr TITRATE PRN IV WITH DIALYSIS 05/07/17 18:00 05/11/17 18:29 Heparin Sodium (Porcine) (Heparin Inj) Dwell Heparin to f... UNSCH PRN OTHER WITH DIALYSIS 05/07/17 18:00 05/11/17 18:30 Gentamicin Sulfate (Gentamicin (Dialysis) Inj) 10 mg UNSCH PRN OTHER WITH DIALYSIS 05/07/17 18:00 05/11/17 18:29 Polyethylene Glycol (Miralax) 17 gm DAILY PO 05/08/17 09:00 05/10/17 07:52 Lactulose (Lactulose Liq) 30 ml BID PO 05/08/17 09:00 05/10/17 07:51 Sucralfate (Carafate Liq) 1 gm Q8HR PO 05/10/17 14:00 05/13/17 13:59 05/13/17 04:46 Metronidazole (Flagyl) 500 mg Q8HR PO 05/11/17 14:00 05/13/17 04:46 Objective Remarks GENERAL: Well-nourished, well-developed patient. Very weak. SKIN: Warm and dry. HEAD: Normocephalic. EYES: No scleral icterus. No injection or drainage. NECK: Supple, trachea midline. No JVD. Bilateral supraclav adenopathy R>L, relatively stable. LYMPHATIC: No adenopathy. CARDIOVASCULAR: Regular rate and rhythm without murmurs. RESPIRATORY: Breath sounds equal bilaterally. No accessory muscle use. GASTROINTESTINAL: Abdomen soft, non-tender, nondistended. EXTREMITIES: No cyanosis, or edema. MUSCULOSKELETAL: Adequate muscle tone. NEUROLOGICAL: No obvious focal deficit. Awake, alert, and oriented x3. Assessment/Plan Problem List: (1) Pulmonary emboli Status: Acute Plan: --will bridge to coumadin once able to po. --CTA showed large PE --s/p tpa therapy on 05.02. now on heparin gtt. (2) Non-Hodgkin lymphoma Status: Acute Plan: --remains critically ill; no further chemo until stable. --Has aggressive triple hit lymphoma. --Received Rituxan x1. --Neck adenopathy relatively stable. (3) ALDO (acute kidney injury) Status: Acute Plan: Renal function has not recovered. Remains on HD. Minimal urine output. (4) Cardiogenic shock Status: Acute (5) Anemia Status: Acute Plan: Multifactorial. Hgb improved this am without transfusion. Assessment 47y/o male admitted with pancreatitis, found to have NHL. Given Rituxan on 05.01 and developed massive PE on and went into cardiogenic shock with renal failure. Now critically ill in IMC. s/p thrombolytic therapy Plan 1. continue to monitor clinical improvement 2. continue heparin gtt, bridge to coumadin when bowel function improved. 3. Still not to give chemotherapy at this time. 4. Monitor CBC. Problem Qualifiers (1) Non-Hodgkin lymphoma: Ruslan Connelly MD May 13, 2017 07:30
[2017-05-13] MEDS: CHLORHEXIDINE 0.12% (ORAL KIT) 15 ML CUP MT SCH ×2 (08:00→20:00)
[2017-05-13] MEDS: DOCUSATE SODIUM 50 MG/SENNA 8.6 MG TAB PO SCH (09:00)
[2017-05-13] MEDS: LACTULOSE SYRUP 20 GM/30 ML CUP PO SCH (09:00)
[2017-05-13] MEDS: POLYETHYLENE GLYCOL 17 GM PKG PO SCH (09:00)
--- NOTE | 2017-05-13 11:07 | HHI.IDPN ---
Subjective Subjective Remarks Patient is a 47-year-old male, initially presented to the hospital complaining of abdominal pain, nausea, and vomiting. He was found to have pancreatitis, and he also had elevated liver function tests. There is history of previous alcohol abuse. He was also found to have a right base pneumonia, and he was started on a Zithromax and Rocephin. Patient also had some abnormality on his urinalysis and was also being treated for UTI. His imaging study showed right hilar mass, and he had evidence on exam of supraclavicular lymph nodes. CT of the chest revealed pleural effusion, and extensive mediastinal and axillary lymphadenopathy. 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 Oncology has been following the patient, and patient was started on chemotherapy on April 30. Patient's pancreatitis has improved although he still has some abdominal pain. He got Rituxan on on May 08, and he is currently getting Decadron, cyclophosphamide, as well as etoposide /Doxorubicin/Vincristine. This morning he went into respiratory failure, and transferred to the ICU, and ended up getting intubated. Pulmonary started seeing the patient around April 29 and at that time he had shortness of breath. He had bilateral pleural effusion, and underwent thoracentesis on the right, and the fluid is exudative. Patient had CTA today, and it showed pulmonary embolism, as well as no infiltrates on the right side. He is afebrile. Currently on the vent, and on sedation. Notes reviewed D/W RN Having a lot of diarrhea C diff came back (+) Getting HD On nasal O2 Looks very weak Temps ok WBC down to normal Finished Abx 05/08 BP ok, off pressors Antibiotics Flagyl Lines Port Vascath Past Medical History Previous tobacco and ETOH use Allergies: Coded Allergies: No Known Allergies (Unverified , 04/18/17) Objective . Vital Signs Date Time Temp Pulse Resp B/P Pulse Ox O2 Delivery O2 Flow Rate FiO2 05/13/17 10:00 76 05/13/17 08:00 77 05/13/17 08:00 98.3 77 21 121/58 97 05/13/17 06:00 80 05/13/17 04:00 80 05/13/17 04:00 98.1 80 23 117/59 99 05/13/17 02:00 79 05/13/17 00:00 97.7 80 19 105/54 99 05/13/17 00:00 80 05/12/17 22:00 80 05/12/17 20:03 96 Nasal Cannula 2.00 05/12/17 20:00 98.1 80 17 112/57 97 05/12/17 20:00 81 05/12/17 18:00 80 05/12/17 16:00 79 05/12/17 16:00 98.5 79 45 105/51 97 05/12/17 15:00 81 21 102/56 100 05/12/17 14:00 79 05/12/17 14:00 79 21 106/57 100 05/12/17 13:00 79 21 111/59 100 05/12/17 12:00 98.1 81 14 107/56 92 05/12/17 12:00 81 05/12/17 05/12/17 05/13/17 15:00 23:00 07:00 Intake Total 138 ml 340 ml 350 ml Output Total 0 ml Balance 138 ml 340 ml 350 ml Intake Oral 340 ml 350 ml IV Total 138 ml Output Urine Total 0 ml # Voids 0 1 # Bowel Movements 2 1 1 . Laboratory Tests Test 05/12/17 05/13/17 05:21 04:54 White Blood Count 19.7 TH/MM3 8.7 TH/MM3 Red Blood Count 2.58 MIL/MM3 3.87 MIL/MM3 Hemoglobin 7.4 GM/DL 11.0 GM/DL Hematocrit 22.1 % 33.1 % Mean Corpuscular Volume 85.6 FL 85.4 FL Mean Corpuscular Hemoglobin 28.6 PG 28.4 PG Mean Corpuscular Hemoglobin 33.4 % 33.3 % Concent Red Cell Distribution Width 16.4 % 16.5 % Platelet Count 416 TH/MM3 327 TH/MM3 Mean Platelet Volume 7.2 FL 7.1 FL Neutrophils (%) (Auto) 95.1 % 92.7 % Lymphocytes (%) (Auto) 1.8 % 3.1 % Monocytes (%) (Auto) 2.7 % 2.8 % Eosinophils (%) (Auto) 0.2 % 1.0 % Basophils (%) (Auto) 0.2 % 0.4 % Neutrophils # (Auto) 18.7 TH/MM3 8.1 TH/MM3 Lymphocytes # (Auto) 0.3 TH/MM3 0.3 TH/MM3 Monocytes # (Auto) 0.5 TH/MM3 0.2 TH/MM3 Eosinophils # (Auto) 0.0 TH/MM3 0.1 TH/MM3 Basophils # (Auto) 0.0 TH/MM3 0.0 TH/MM3 CBC Comment DIFF FINAL DIFF FINAL Differential Comment Laboratory Tests Test 05/12/17 05/12/17 05:21 10:45 Uric Acid 4.6 MG/DL Sodium Level 137 MEQ/L Potassium Level 2.6 MEQ/L Chloride Level 95 MEQ/L Carbon Dioxide Level 29.7 MEQ/L Anion Gap 12 MEQ/L Blood Urea Nitrogen 35 MG/DL Creatinine 5.96 MG/DL Estimat Glomerular Filtration 12 ML/MIN Rate Random Glucose 106 MG/DL Calcium Level 8.6 MG/DL Total Bilirubin 0.7 MG/DL Aspartate Amino Transf 13 U/L (AST/SGOT) Alanine Aminotransferase 8 U/L (ALT/SGPT) Alkaline Phosphatase 148 U/L Total Protein 6.7 GM/DL Albumin 2.0 GM/DL Amylase Level 79 U/L Lipase 926 U/L Microbiology Date/Time Procedure Status Source Growth 05/11/17 15:00 Urine Culture - Preliminary Resulted Urine Catheterized Urine Yeast-Id To Follow Imaging Chest X-Ray 05/12/17 0600 Signed Impressions: Service Date/Time: Friday, May 12, 2017 03:33 - CONCLUSION: 1. No significant change in the hazy opacity in the perihilar regions of both lung bases. 2. The right paratracheal mass is unchanged. 3. Interval extubation and removal of nasogastric tube. Goldy Suarez MD Abdomen X-Ray 05/12/17 0600 Signed Impressions: Service Date/Time: Friday, May 12, 2017 03:36 - CONCLUSION: No significant change in the bowel gas pattern. Goldy Suarez MD Abdomen X-Ray 05/11/17 0000 Signed Impressions: Service Date/Time: Thursday, May 11, 2017 15:59 - CONCLUSION: 1. Findings consistent with moderate to severe adynamic ileus versus partial small bowel obstruction. Liang Peralta MD Chest X-Ray 05/10/17 0600 Signed Impressions: Service Date/Time: Wednesday, May 10, 2017 03:45 - CONCLUSION: Tubes and catheters are in good position. Bilateral pleural effusions persist. Right paratracheal stripe widening is unchanged Rinku Hillman MD Chest X-Ray 05/09/17599 Signed Impressions: Service Date/Time: Tuesday, May 09, 2017 03:15 - CONCLUSION: Perihilar vascular congestion with pleural effusions left greater than right. Tubes and catheters are in good position. Stable widening of the right paratracheal stripe Rinku Hillman MD Abdomen/Pelvis CT 05/09/17 0000 Signed Impressions: Service Date/Time: Tuesday, May 09, 2017 21:16 - CONCLUSION: 1. Diffusely distended loops of small bowel down to the cecum suggest ileus. 2. Evidence of mesenteric and retroperitoneal adenopathy. 3. Large bilateral pleural effusions , moderate amount of free fluid in the pelvis and mild ascites in the upper abdomen. 4. Abnormal appearance to the parenchyma of the right kidney with patchy areas of hyperdensity in a mosaic pattern. This of uncertain significance. The patient had iodinated contrast for a CT pulmonary angiogram 7 days ago; this could potentially represent residual parenchymal contrast which would be nonspecific, but raises the possibility of either obstruction or renal infarctions. Bryon Evans MD Last Impressions Chest X-Ray 05/03/17599 Signed Impressions: Service Date/Time: Wednesday, May 03, 2017 03:46 - CONCLUSION: Improving infiltrates. No Tacos Garcia MD Head CT 05/02/17 Signed Impressions: Service Date/Time: Tuesday, May 02, 2017 16:45 - CONCLUSION: No acute intracranial disease. Tray Patel MD CT Angiography 05/02/17 0000 Signed Impressions: Service Date/Time: Tuesday, May 02, 2017 11:10 - CONCLUSION: 1. There is pulmonary embolus in the right pulmonary artery, right upper lobe and lower lobe branches. 2. Resorption of previously seen gas in the left axilla with fluid collection at this site with postprocedural change and possibly postprocedural hemorrhage not significantly changed in size. 3. Interval development of right lung airspace process may represent postobstructive pneumonia and there is mucus within the trachea not present yesterday. 4. Right pleural effusion is smaller and left pleural effusion is larger. 5. No change in bulky adenopathy. Leonor Chavez MD Upper Extremity Ultrasound 04/30/17 0000 Signed Impressions: Service Date/Time: April 12:25 - CONCLUSION: There some superficial thrombosis of a vein in the forearm. The deep venous system is patent. Large fluid collection left axilla. Significant soft tissue edema throughout the upper arm. Rinku Hillman MD Thoracentesis Ultrasound 04/30/17 0000 Signed Impressions: Service Date/Time: April 12:14 - CONCLUSION: Uncomplicated ultrasound guided thoracentesis. Tray Patel MD Port Line Insertion 04/27/17 0000 Signed Impressions: Service Date/Time: Thursday, April 27, 2017 14:56 - CONCLUSION: 1. Bulky bilateral lower cervical lymphadenopathy. 2. Uncomplicated ultrasound and fluoroscopic guided implanted central venous port catheter placement as described in detail above. An 8 [place] Power port was placed. Liang Peralta MD Bone Biopsy CT 04/27/17 0000 Signed Impressions: Service Date/Time: Thursday, April 27, 2017 16:22 - CONCLUSION: 1. Uncomplicated CT guided bone marrow aspirate. 2. Uncomplicated CT guided bone marrow biopsy. Tray Patel MD Chest CT 04/25/17 0000 Signed Impressions: Service Date/Time: Wednesday, April 26, 2017 19:00 - CONCLUSION: The right pleural effusion is slightly larger on the left side has not changed. Extensive bulky adenopathy as before and malignancies such as lymphoma is suspected. Leonor Chavez MD Gall Bladder Ultrasound 04/22/17 0000 Signed Impressions: Service Date/Time: Saturday, April 22, 2017 07:35 - CONCLUSION: Small liver with focal abdomen only incompletely evaluated. Large right pleural effusion. effusion. Kirk Briecño MD FACR Abdomen CT 04/20/17 0000 Signed Impressions: Service Date/Time: Thursday, April 20, 2017 19:40 - CONCLUSION: Limited exam because of lack of intravenous contrast. Lymphoma is suspected. Pathological diagnosis could be obtained with ultrasound biopsy of the cervical, axillary or inguinal adenopathy. Kirk Briceño MD FACR Physical Exam GENERAL: awake and responsive, looks very weak, not in respiratory distress. On nasal O2 SKIN: Warm and dry. No generalized rash HEAD: Atraumatic. Normocephalic. No temporal wasting, or tenderness. EYES: [place] conjunctiva. No petechia or hemorrhage. Pupils equal, round and reactive to light. Has dirty sclera. No injection or drainage. EARS, NOSE AND THROAT: Nose without bleeding or purulent nasal discharge. Dry oral mucosa, poor dentition NECK: Trachea midline. Supple and not tender, no meningeal signs. Has significant lymphadenopathy. CARDIOVASCULAR: Regular rate and rhythm. No murmurs, rubs or gallops heard RESPIRATORY: Decreased BS at bases, with few rhonchi. Port look ok. ABDOMEN: Less distended, hypoactive bowel sounds, tympanitic, not tender. No guarding, no rebound EXTREMITIES: No clubbing, cyanosis, or edema. No joint effusion. Warm. Has very dry skin both feet. NEUROLOGICAL: Awake and responding PSYCHIATRIC: Calm and cooperative LINE: Port and vascath with no evidence of infection. : Singh in place, urine looks clear Assessment & Plan Remarks IMPRESSION Respiratory failure, with multiple PE on R, has new infiltrates, ?PNA, ? infarct - PE on R and infiltrates on R - extubated 05/10, seems to be doing well Has Tomi effusions, tap is exudative, ?lymphoma New NHL, has received some chemo Pancreatitis, and elevated LFT likely due to ETOH, stable Acute renal failure, ?sepsis, ?contrast Ileus, now with diarrhea Leukocytosis, better C difficile colitis RECOMMENDATION Continue Flagyl Add po Vancomycin Monitor temps Monitor progress D/W Maggy Honeycutt MD May 13, 2017 11:07
[2017-05-13 12:33] LABS: APTT (PATIENT) 87.1 SEC (24.3-30.1)
[2017-05-13] MEDS: PANTOPRAZOLE SODIUM 40 MG VIAL IV PUSH SCH (12:51)
[2017-05-13] MEDS: VANCOMYCIN 500 MG VIAL (FOR ORAL USE ONLY) PO SCH ×3 (12:51→20:51)
[2017-05-13] MEDS: CALCIUM ACETATE 667 MG CAP PO SCH ×3 (12:59→18:14)
[2017-05-13] MEDS: NIFEdipine 90 MG SUSTAINED RELEASE TAB PO SCH (12:59)
[2017-05-13] MEDS: ALLOPURINOL 100 MG TAB PO SCH (12:59)
--- NOTE | 2017-05-13 13:43 | HHI.PR ---
Subjective Subjective Notes Resting in bed Doing well today Smiled Receiving HD Objective Vitals/I&O Vital Signs Date Time Temp Pulse Resp B/P Pulse Ox O2 Delivery O2 Flow Rate FiO2 05/13/17 13:36 96 Nasal Cannula 2.00 05/13/17 12:00 76 05/13/17 12:00 98.1 24 111/60 05/10/17 16:03 35 Labs Laboratory Tests Test 05/13/17 05/13/17 04:54 09:55 White Blood Count 8.7 Red Blood Count 3.87 Hemoglobin 11.0 Hematocrit 33.1 Mean Corpuscular Volume 85.4 Mean Corpuscular Hemoglobin 28.4 Mean Corpuscular Hemoglobin 33.3 Concent Red Cell Distribution Width 16.5 Platelet Count 327 Mean Platelet Volume 7.1 Neutrophils (%) (Auto) 92.7 Lymphocytes (%) (Auto) 3.1 Monocytes (%) (Auto) 2.8 Eosinophils (%) (Auto) 1.0 Basophils (%) (Auto) 0.4 Neutrophils # (Auto) 8.1 Lymphocytes # (Auto) 0.3 Monocytes # (Auto) 0.2 Eosinophils # (Auto) 0.1 Basophils # (Auto) 0.0 CBC Comment DIFF FINAL Differential Comment Activated Partial 87.1 Thromboplast Time Date/Time Procedure Status Source Growth 05/11/17 15:00 Urine Culture - Preliminary Resulted Urine Catheterized Urine Yeast-Id To Follow Radiology A CT scan was obtained which shows diffuse adenopathy in the neck, thorax and abdomen. Cardiovascular: Regular Lungs: Clear Abdomen: Other (minimally distended; non tender ) Extremities: Other (see below) Narrative Exam LEFT BE edema BLE edema A/P Assessment and Plan 47 year old male re-consult to GS for ileus vs SBO -Pathology shows diffuse large B cell lymphoma -Start sips of water; ice chips and popsicles; advance diet as tolerated -Insert NGT if nausea/vomiting occur -Likely ileus due to multiple acute medical issues +BM -No acute GS issues at this time Toshia Quinteros May 13, 2017 13:43
[2017-05-13] MEDS: HEPARIN-D5W 25,000 U/250 ML 250 ML IV SCH (15:09)
--- NOTE | 2017-05-13 15:51 | HHI.GIFU ---
Subjective Remarks Pt resting in bed, in no apparent distress, family visiting. Per RN still with copious liquid stool. (Freya Figueroa) Objective Vitals I&O Vital Signs Date Time Temp Pulse Resp B/P Pulse Ox O2 Delivery O2 Flow Rate FiO2 05/13/17 14:00 78 05/13/17 13:36 96 Nasal Cannula 2.00 05/13/17 13:00 81 05/13/17 12:00 76 05/13/17 12:00 98.1 76 24 111/60 05/13/17 11:00 79 05/13/17 10:00 76 05/13/17 08:00 77 05/13/17 08:00 98.3 77 21 121/58 97 05/13/17 06:00 80 05/13/17 04:00 80 05/13/17 04:00 98.1 80 23 117/59 99 05/13/17 02:00 79 05/13/17 00:00 97.7 80 19 105/54 99 05/13/17 00:00 80 05/12/17 22:00 80 05/12/17 20:03 96 Nasal Cannula 2.00 05/12/17 20:00 98.1 80 17 112/57 97 05/12/17 20:00 81 05/12/17 18:00 80 05/12/17 16:00 79 05/12/17 16:00 98.5 79 45 105/51 97 I/O 05/12/17 05/12/17 05/12/17 05/13/17 05/13/17 05/13/17 07:00 15:00 23:00 07:00 15:00 23:00 Intake Total 356 ml 138 ml 340 ml 350 ml 746 ml Output Total 0 ml 2501 ml Balance 356 ml 138 ml 340 ml 350 ml -1755 ml Intake Oral 240 ml 340 ml 350 ml 250 ml IV Total 116 ml 138 ml 496 ml Output Urine Total 0 ml Stool Total 1 ml Hemodialysis 2500 ml # Voids 0 1 # Bowel Movements 3 2 1 1 Laboratory Laboratory Tests Test 05/13/17 05/13/17 04:54 09:55 White Blood Count 8.7 Red Blood Count 3.87 Hemoglobin 11.0 Hematocrit 33.1 Mean Corpuscular Volume 85.4 Mean Corpuscular Hemoglobin 28.4 Mean Corpuscular Hemoglobin 33.3 Concent Red Cell Distribution Width 16.5 Platelet Count 327 Mean Platelet Volume 7.1 Neutrophils (%) (Auto) 92.7 Lymphocytes (%) (Auto) 3.1 Monocytes (%) (Auto) 2.8 Eosinophils (%) (Auto) 1.0 Basophils (%) (Auto) 0.4 Neutrophils # (Auto) 8.1 Lymphocytes # (Auto) 0.3 Monocytes # (Auto) 0.2 Eosinophils # (Auto) 0.1 Basophils # (Auto) 0.0 CBC Comment DIFF FINAL Differential Comment Activated Partial 87.1 Thromboplast Time Date/Time Procedure Status Source Growth 05/11/17 15:00 Urine Culture - Preliminary Resulted Urine Catheterized Urine Yeast-Id To Follow Imaging Last Impressions Chest X-Ray 05/12/17 0600 Signed Impressions: Service Date/Time: Friday, May 12, 2017 03:33 - CONCLUSION: 1. No significant change in the hazy opacity in the perihilar regions of both lung bases. 2. The right paratracheal mass is unchanged. 3. Interval extubation and removal of nasogastric tube. Goldy Suarez MD Abdomen X-Ray 05/12/17 0600 Signed Impressions: Service Date/Time: Friday, May 12, 2017 03:36 - CONCLUSION: No significant change in the bowel gas pattern. Goldy Suarez MD Abdomen/Pelvis CT 05/09/17 0000 Signed Impressions: Service Date/Time: Tuesday, May 09, 2017 21:16 - CONCLUSION: 1. Diffusely distended loops of small bowel down to the cecum suggest ileus. 2. Evidence of mesenteric and retroperitoneal adenopathy. 3. Large bilateral pleural effusions , moderate amount of free fluid in the pelvis and mild ascites in the upper abdomen. 4. Abnormal appearance to the parenchyma of the right kidney with patchy areas of hyperdensity in a mosaic pattern. This of uncertain significance. The patient had iodinated contrast for a CT pulmonary angiogram 7 days ago; this could potentially represent residual parenchymal contrast which would be nonspecific, but raises the possibility of either obstruction or renal infarctions. Bryon Evans MD Renal Ultrasound 05/05/17 0000 Signed Impressions: Service Date/Time: Friday, May 05, 2017 20:06 - CONCLUSION: 1. Kidneys are borderline echogenic which can be seen with medical renal disease. 2. No evidence of hydronephrosis. 3. Abdominal ascites. 4. Multiple dilated bowel loops. 5. Bilateral pleural effusions. Tray Patel MD Head CT 05/03/17 Signed Impressions: Service Date/Time: Wednesday, May 03, 2017 17:22 - CONCLUSION: No acute intracranial disease. No hemorrhage seen. Tray Patel MD CT Angiography 05/02/17 Signed Impressions: Service Date/Time: Tuesday, May 02, 2017 11:10 - CONCLUSION: 1. There is pulmonary embolus in the right pulmonary artery, right upper lobe and lower lobe branches. 2. Resorption of previously seen gas in the left axilla with fluid collection at this site with postprocedural change and possibly postprocedural hemorrhage not significantly changed in size. 3. Interval development of right lung airspace process may represent postobstructive pneumonia and there is mucus within the trachea not present yesterday. 4. Right pleural effusion is smaller and left pleural effusion is larger. 5. No change in bulky adenopathy. K. Anson Chavez MD Upper Extremity Ultrasound 04/30/17 Signed Impressions: Service Date/Time: April 12:25 - CONCLUSION: There some superficial thrombosis of a vein in the forearm. The deep venous system is patent. Large fluid collection left axilla. Significant soft tissue edema throughout the upper arm. Rinku Hillman MD Thoracentesis Ultrasound 04/30/17 Signed Impressions: Service Date/Time: April 12:14 - CONCLUSION: Uncomplicated ultrasound guided thoracentesis. Tray Patel MD Port Line Insertion 04/27/17 Signed Impressions: Service Date/Time: Thursday, April 27, 2017 14:56 - CONCLUSION: 1. Bulky bilateral lower cervical lymphadenopathy. 2. Uncomplicated ultrasound and fluoroscopic guided implanted central venous port catheter placement as described in detail above. An 8 [place] Power port was placed. Liang Peralta MD Bone Biopsy CT 04/27/17 0000 Signed Impressions: Service Date/Time: Thursday, April 27, 2017 16:22 - CONCLUSION: 1. Uncomplicated CT guided bone marrow aspirate. 2. Uncomplicated CT guided bone marrow biopsy. Tray Patel MD Chest CT 04/25/17 0000 Signed Impressions: Service Date/Time: Wednesday, April 26, 2017 19:00 - CONCLUSION: The right pleural effusion is slightly larger on the left side has not changed. Extensive bulky adenopathy as before and malignancies such as lymphoma is suspected. Leonor Chavez MD Gall Bladder Ultrasound 04/22/17 0000 Signed Impressions: Service Date/Time: Saturday, April 22, 2017 07:35 - CONCLUSION: Small liver with focal abdomen only incompletely evaluated. Large right pleural effusion. effusion. Kirk Briceño MD FACR Abdomen CT 04/20/17 0000 Signed Impressions: Service Date/Time: Thursday, April 20, 2017 19:40 - CONCLUSION: Limited exam because of lack of intravenous contrast. Lymphoma is suspected. Pathological diagnosis could be obtained with ultrasound biopsy of the cervical, axillary or inguinal adenopathy. Kirk Briceño MD FACR Physical Exam HEENT: PERRL. Normocephalic; atraumatic; no jaundice. CHEST: CTA CARDIAC: RRR ABDOMEN: soft, mildly Distended, right side TTP; no hepatosplenomegaly; bowel sounds hypoactive EXTREMITIES: left arm edematous, BLE edema SKIN: Normal; no rash; no jaundice. 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 KUB 7-31 showing mod to severe ileus; fu KUB 8-1 no significant change from previous. KUB 05/08/17--Air-filled mildly dilated loops of small bowel suggesting ileus or partial small bowel obstruction. Abdomen/Pelvis CT 05/09/17-- 1. Diffusely distended loops of small bowel down to the cecum suggest ileus. 2. Evidence of mesenteric and retroperitoneal adenopathy. 3. Large bilateral pleural effusions, moderate amount of free fluid in the pelvis and mild ascites in the upper abdomen. 4. Abnormal appearance to the parenchyma of the right kidney with patchy areas of hyperdensity in a mosaic pattern. This of uncertain significance. The patient had iodinated contrast for a CT pulmonary angiogram 7 days ago; this could potentially represent residual parenchymal contrast which would be nonspecific, but raises the possibility of either obstruction or renal infarctions. General surgery following. - c diff - pos tox c diff PCR. on Flagyl. - leukocytosis - wbc 19.7 today - Acute hypoxic respiratory failure, extubated. Chest X-Ray 05/10/17--Tubes and catheters are in good position. Bilateral pleural effusions persist. Right paratracheal stripe widening is unchanged - PE, ALDO on HD, b cell lymphoma - per [facility] - if n/v, NGT - popsicles and ice chips per GS - when eating full liquids per ST - GS following - continue flagyl - Further recommendations to follow based on results of above Patient seen and examined by Dr. Park and myself and this note is written on her behalf. (Freya Figueroa) Physician Comments seen, examined agree with above d/c all laxatives agree with Vancomycin po diet as recommended by speech therapy consider egd/colon if no improvement (Daily Park MD) Freya Figueroa May 13, 2017 15:51 Daily Park MD May 13, 2017 17:15
--- NOTE | 2017-05-13 16:12 | HHI.CCPN ---
Subjective Remarks/Hospital Course Hospital Course: This is a 47yM who was originally admitted for acute pancreatitis and during this hospital admission found to have an acute aggressive non-hodgkin's lymphoma. he has had progressive shortness of breath secondary to bilateral pleural effusions and adenopathy. He rapid responsed today for worsening hypoxemia on a NRB and in severe respiratory distress. When I evaluated the [place] [facility] [place] he is in severe respiratory distress, unable to speak, RR > 40, spo2 92% on NRB, using accessory muscles. CXR without over fluid overload. additional information is unobtainable secondary to the clinical condition of the patient. Subjective: 05/03: TPA given overnight. started on heparin drip after. this morning, oligoaneuric with Cr rise to 3.3 this AM. also more hypotensive, although fio2 significantly improved to 45%. bilateral pleural effusions persist. echo yesterday with biventricular dysfunction. hgb stable. 05/04:Flolan decreased to 20 from 30 ngs. Slight improvement in chest x-ray. Epinephrine infusion currently being weaned . Nephrology consulted secondary to continue rising creatinine. 05/05: Hemodynamically stable, epinephrine weaned off yesterday. Nephrology following Dr. Haley with plans for possible dialysis tomorrow. Discussed with hematology oncology plan for reinitiation of chemotherapy with initiation of dialysis. Respiratory system with Flolan decrease stable. Plan to decrease Flolan to 10 ng, with potential for cessation in a.m.. 05/06: No acute issues overnight. Attempts at CPAP trials unsuccessful yesterday. Vascular catheter placement this a.m.. Plan for dialysis today. ABGs obtained, Flolan discontinued today. Possible plan for reinitiation of chemotherapy. 05/07: Overnight the patient was noted to have emesis, and large residual tube feeds. Reglan 10 mg every 8 hours initiated today. Will reinitiate tube feeds at trickle 10 cc/hour. CPAP trials initiated, the patient tolerated CPAP for approximately 3 hours today. Hemodialysis initiated yesterday 2 L off, plan for 2 L removal today. The patient oxygen level maintained, will continue to wean. Repeat echo planned for Thursday, 1 week post TPA. 05/08: The patient successfully went through CPAP trials 3-4 hours yesterday. CPAP trials continue today. The patient was noted to have emesis approximately 2 L over the last 24 hours, despite initiation of her prokinetic, Reglan. Reglan discontinued KUB ordered results pending this a.m.. Bowel regimen expanded. The patient underwent hemodialysis with approximately 2 L removed yesterday. 05/09: The patient remains subtherapeutic on Heparin infusion protocol, PTT 37.2 , per Hematology minimal acceptable range PTT 60. The patient was bolused with Heparin 200units and increased to 1200units. Pending limited ECHO study to evaluate RV strain, Pulm HTN and LV function. New labs pending. Ileus vs possible bowel obstruction, approximately 1100 cc gastric contents overnight. Plan for CT abdomen with PO contrast only 2/2 acute renal failure. 05/10: Jolene orally intubated on mechanical ventilation. Undergoing C Pap trials. 05/11: Extubated on 05/10. On nasal cannula 2 L/m. Awake and alert, following commands this morning. Complains of some shortness of breath. CT abdomen and pelvis done on 05/09 concerning for ileus versus SBO. GI predisposed towards diagnosis of SBO versus ileus. Patient has diarrhea secondary to C. difficile. 05/12: Resting in bed. Comfortable on nasal cannula. Complains of some abdominal discomfort. 05/13: Resting in bed. Not in any acute distress. Denies any abdominal pain. Still has diarrhea. States he is breathing much better. Remains on nasal cannula. Objective Vital Signs Date Time Temp Pulse Resp B/P Pulse Ox O2 Delivery O2 Flow Rate FiO2 05/13/17 14:00 78 05/13/17 13:36 96 Nasal Cannula 2.00 05/13/17 12:00 98.1 24 111/60 05/10/17 16:03 35 Intake and Output 05/12/17 05/12/17 05/13/17 08:00 16:00 00:00 Intake Total 356 ml 138 ml 340 ml Output Total 0 ml Balance 356 ml 138 ml 340 ml Result Diagram: 05/13/17 0454 05/12/17 1045 Imaging Last Impressions Chest X-Ray 05/06/17 0000 Signed Impressions: Service Date/Time: Saturday, May 06, 2017 12:00 - CONCLUSION: 1. Vas-Cath in good position without pneumothorax. Kirk Briceño MD FACR Renal Ultrasound 05/05/17 0000 Signed Impressions: Service Date/Time: Friday, May 05, 2017 20:06 - CONCLUSION: 1. Kidneys are borderline echogenic which can be seen with medical renal disease. 2. No evidence of hydronephrosis. 3. Abdominal ascites. 4. Multiple dilated bowel loops. 5. Bilateral pleural effusions. Tray Patel MD Head CT 05/03/17 Signed Impressions: Service Date/Time: Wednesday, May 03, 2017 17:22 - CONCLUSION: No acute intracranial disease. No hemorrhage seen. Tray Patel MD CT Angiography 05/02/17 Signed Impressions: Service Date/Time: Tuesday, May 02, 2017 11:10 - CONCLUSION: 1. There is pulmonary embolus in the right pulmonary artery, right upper lobe and lower lobe branches. 2. Resorption of previously seen gas in the left axilla with fluid collection at this site with postprocedural change and possibly postprocedural hemorrhage not significantly changed in size. 3. Interval development of right lung airspace process may represent postobstructive pneumonia and there is mucus within the trachea not present yesterday. 4. Right pleural effusion is smaller and left pleural effusion is larger. 5. No change in bulky adenopathy. Leonor Chavez MD Upper Extremity Ultrasound 04/30/17 Signed Impressions: Service Date/Time: April 12:25 - CONCLUSION: There some superficial thrombosis of a vein in the forearm. The deep venous system is patent. Large fluid collection left axilla. Significant soft tissue edema throughout the upper arm. Rinku Hillman MD Thoracentesis Ultrasound 04/30/17 Signed Impressions: Service Date/Time: April 12:14 - CONCLUSION: Uncomplicated ultrasound guided thoracentesis. Tray Patel MD Port Line Insertion 04/27/17 Signed Impressions: Service Date/Time: Thursday, April 27, 2017 14:56 - CONCLUSION: 1. Bulky bilateral lower cervical lymphadenopathy. 2. Uncomplicated ultrasound and fluoroscopic guided implanted central venous port catheter placement as described in detail above. An 8 [place] Power port was placed. Liang Peralta MD Bone Biopsy CT 04/27/17 Signed Impressions: Service Date/Time: Thursday, April 27, 2017 16:22 - CONCLUSION: 1. Uncomplicated CT guided bone marrow aspirate. 2. Uncomplicated CT guided bone marrow biopsy. Tray Patel MD Chest CT 04/25/17 0000 Signed Impressions: Service Date/Time: Wednesday, April 26, 2017 19:00 - CONCLUSION: The right pleural effusion is slightly larger on the left side has not changed. Extensive bulky adenopathy as before and malignancies such as lymphoma is suspected. Leonor Chavez MD Gall Bladder Ultrasound 04/22/17 0000 Signed Impressions: Service Date/Time: Saturday, April 22, 2017 07:35 - CONCLUSION: Small liver with focal abdomen only incompletely evaluated. Large right pleural effusion. effusion. Kirk Briceño MD FACR Abdomen CT 04/20/17 0000 Signed Impressions: Service Date/Time: Thursday, April 20, 2017 19:40 - CONCLUSION: Limited exam because of lack of intravenous contrast. Lymphoma is suspected. Pathological diagnosis could be obtained with ultrasound biopsy of the cervical, axillary or inguinal adenopathy. Kirk Briceño MD FACR Last Impressions Chest X-Ray 05/03/17 0600 Signed Impressions: Service Date/Time: Wednesday, May 03, 2017 03:46 - CONCLUSION: Improving infiltrates. No Tacos Garcia MD Head CT 05/03/17 0000 Signed Impressions: Service Date/Time: Wednesday, May 03, 2017 17:22 - CONCLUSION: No acute intracranial disease. No hemorrhage seen. Tray Patel MD CT Angiography 05/02/17 0000 Signed Impressions: Service Date/Time: Tuesday, May 02, 2017 11:10 - CONCLUSION: 1. There is pulmonary embolus in the right pulmonary artery, right upper lobe and lower lobe branches. 2. Resorption of previously seen gas in the left axilla with fluid collection at this site with postprocedural change and possibly postprocedural hemorrhage not significantly changed in size. 3. Interval development of right lung airspace process may represent postobstructive pneumonia and there is mucus within the trachea not present yesterday. 4. Right pleural effusion is smaller and left pleural effusion is larger. 5. No change in bulky adenopathy. Leonor Chavez MD Upper Extremity Ultrasound 04/30/17 0000 Signed Impressions: Service Date/Time: April 12:25 - CONCLUSION: There some superficial thrombosis of a vein in the forearm. The deep venous system is patent. Large fluid collection left axilla. Significant soft tissue edema throughout the upper arm. Rinku Hillman MD Thoracentesis Ultrasound 04/30/17 0000 Signed Impressions: Service Date/Time: April 12:14 - CONCLUSION: Uncomplicated ultrasound guided thoracentesis. Tray Patel MD Port Line Insertion 04/27/17 0000 Signed Impressions: Service Date/Time: Thursday, April 27, 2017 14:56 - CONCLUSION: 1. Bulky bilateral lower cervical lymphadenopathy. 2. Uncomplicated ultrasound and fluoroscopic guided implanted central venous port catheter placement as described in detail above. An 8 [place] Power port was placed. Liang Peralta MD Bone Biopsy CT 04/27/17 0000 Signed Impressions: Service Date/Time: Thursday, April 27, 2017 16:22 - CONCLUSION: 1. Uncomplicated CT guided bone marrow aspirate. 2. Uncomplicated CT guided bone marrow biopsy. Tray Patel MD Chest CT 04/25/17 0000 Signed Impressions: Service Date/Time: Wednesday, April 26, 2017 19:00 - CONCLUSION: The right pleural effusion is slightly larger on the left side has not changed. Extensive bulky adenopathy as before and malignancies such as lymphoma is suspected. Leonor Chavez MD Gall Bladder Ultrasound 04/22/17 0000 Signed Impressions: Service Date/Time: Saturday, April 22, 2017 07:35 - CONCLUSION: Small liver with focal abdomen only incompletely evaluated. Large right pleural effusion. effusion. Kirk Briceño MD FACR Abdomen CT 04/20/17 0000 Signed Impressions: Service Date/Time: Thursday, April 20, 2017 19:40 - CONCLUSION: Limited exam because of lack of intravenous contrast. Lymphoma is suspected. Pathological diagnosis could be obtained with ultrasound biopsy of the cervical, axillary or inguinal adenopathy. Kirk Briceño MD FACR Last Impressions Chest X-Ray 05/02/17 0000 Signed Impressions: Service Date/Time: Tuesday, May 02, 2017 08:11 - CONCLUSION: There is mild improvement in aeration of the right lower lung, otherwise not significantly changed. Leonor Chavez MD Upper Extremity Ultrasound 04/30/17 0000 Signed Impressions: Service Date/Time: April 12:25 - CONCLUSION: There some superficial thrombosis of a vein in the forearm. The deep venous system is patent. Large fluid collection left axilla. Significant soft tissue edema throughout the upper arm. Rinku Hillman MD Thoracentesis Ultrasound 04/30/17 0000 Signed Impressions: Service Date/Time: April 12:14 - CONCLUSION: Uncomplicated ultrasound guided thoracentesis. Tray Patel MD Port Line Insertion 04/27/17 0000 Signed Impressions: Service Date/Time: Thursday, April 27, 2017 14:56 - CONCLUSION: 1. Bulky bilateral lower cervical lymphadenopathy. 2. Uncomplicated ultrasound and fluoroscopic guided implanted central venous port catheter placement as described in detail above. An 8 [place] Power port was placed. Liang Peralta MD Bone Biopsy CT 04/27/17 0000 Signed Impressions: Service Date/Time: Thursday, April 27, 2017 16:22 - CONCLUSION: 1. Uncomplicated CT guided bone marrow aspirate. 2. Uncomplicated CT guided bone marrow biopsy. Tray Patel MD Chest CT 04/25/17 0000 Signed Impressions: Service Date/Time: Wednesday, April 26, 2017 19:00 - CONCLUSION: The right pleural effusion is slightly larger on the left side has not changed. Extensive bulky adenopathy as before and malignancies such as lymphoma is suspected. Leonor Chavez MD Gall Bladder Ultrasound 04/22/17 0000 Signed Impressions: Service Date/Time: Saturday, April 22, 2017 07:35 - CONCLUSION: Small liver with focal abdomen only incompletely evaluated. Large right pleural effusion. effusion. Kirk Briceño MD FACR Abdomen CT 04/20/17 0000 Signed Impressions: Service Date/Time: Thursday, April 20, 2017 19:40 - CONCLUSION: Limited exam because of lack of intravenous contrast. Lymphoma is suspected. Pathological diagnosis could be obtained with ultrasound biopsy of the cervical, axillary or inguinal adenopathy. Kirk Briceño MD FACR Objective Remarks GENERAL: Well-nourished well-developed middle-aged male, lying in bed on nasal cannula HEENT: perrl. mucous membranes moist NECK: no jvd. trachea midline orotracheally intubated PULM: Right chest Port-A-Cath in situ, clear to auscultation. equal chest rise. Left IJ vas catheter CV: Regular, regular rhythm. No murmurs rubs or gallops ABD: soft, nontender, nondistended. no guarding. Bowel sounds sluggish EXTREMITIES: trace peripheral edema. distal pulses 2+ NEURO: Awake, alert, following commands. Movement of extremities x 4 Procedures 04/[address] excision biopsy 04/27- port placement 05/02-TPA 05/06-left IJ Vas-Cath placement A/P Assessment and Plan Assessment: 47yM with aggressive large B cell lymphoma, acute pancreatitis, with submassive PE, acute cardiogenic shock, acute hypoxic respiratory failure, now oligoaneuric acute kidney injury secondary to shock. Off epinephrine gtt and inhaled flolan. Extubated on 05/10 Plan by Systems: Neuro: --Off all sedation. Follow neuro status. -- repeat head on 05/03 CT 24h after TPA-no abnormality Respiratory: Acute Hypoxic Respiratory Failure Acute Submassive Pulmonary Embolism Bilateral pleural effusions, large, acute --Every 6 hours scheduled nebs -- Discontinued inhaled flolan 05/06 --Tolerated C Pap trial and was extubated on 05/10. Remains on nasal cannula. Cardiovascular: Acute Submassive Pulmonary Embolism Right Heart Dysfunction Global severe left ventricular systolic dysfunction Cardiogenic Shock -- high risk for sudden cardiac s/p acute PE -- Epinephrine discontinued 05/04 -- Maintain a goal MAP > 65 mmHg -- 2d echo 05/02: EF 30-35%, RV dysfunction with dilation --Repeat ECHO limited study scheduled on 05/09-RV function appears to have normalized, question of interatrial shunt for which cardiology consulted-d/w Dr. Taveras, recommended that once off anticoagulation, would need to be on ASA and require f/u echo periodically for evaluation. Renal: Acute Kidney Injury -- likely secondary to cardiogenic shock - Nephrology following, Dr. Haley --Left IJ vas catheter, on hemodialysis -- continue shepard with strict I/Os. --Hemodialysis per nephrology FEN/GI: Hyperphosphatemia Hyperkalemia Hypocalcemia Acute protein calorie malnutrition- severe Ileus -- per the echo from 05/08, intravascular volume status is appropriate -- 05/08 tube feeds on hold, G-tube to LIWS suction the patient extubated on at which time OG tube was removed --General surgery to follow up on ileus versus SBO. -GI consulted, appreciate recommendations -Expanded bowel regimen MiraLAX, lactulose, due to site suppository -Tube feeds placed on hold. NG tube to low intermittent wall suction due to ileus . 05/11 evening. OG tube removed with extubation on 05/11. GI general surgery following. Attempting advancing by mouth. -- PhosLo -- daily electrolytes, replete per ICU protocol Heme/ID Acute Large Cell B-cell lymphoma Pulmonary Embolism C. difficile colitis -- hematology/oncology following Dr. Connelly-tentative plan to resume CHOP therapy once medically improved. -- chemo on hold secondary to his acute life-threatening illnesses. 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 -- continue heparin drip,Maintain goal PTT 60 - 80. Will eventually transition to Coumadin ID following. On PO Flagyl per ID, by mouth vancomycin added by ID on 05/13 for C. difficile colitis Endocrine: Hyperglycemia of Critical Illness -- SSI, q6h, med scale Msk: --PT evaluation and treat --Multi-Podus boots --PT daily functional maintenance Prophylaxis: DVT: SCDs, heparin drip GI: protonix Lines: -- port right chest --Left IJ vas catheter, peripheral IVs 2 -- shepard Will consult and transfer to hospitalist service for further medical management. Critical care will be available as needed. Minh Haywood MD May 13, 2017 16:12
--- NOTE | 2017-05-13 16:48 | PD.CARD.PN ---
Subjective Subjective Remarks No events overnight No chest pain/SOB Objective Medications Current Medications Medications (Trade) Dose Ordered Sig/Shyla Route Start Time Stop Time Status Last Admin (NS Flush) 2 ml UNSCH PRN IV FLUSH 04/18/17 17:30 04/21/17 22:27 (Narcan Inj) 0.4 mg UNSCH PRN IV 04/18/17 19:30 (Porsha-Colace) 1 tab BID PO 04/18/17 21:00 05/10/17 07:52 (Milk Of Magnesia Liq) 30 ml Q12H PRN PO 04/18/17 19:30 05/09/17 08:01 (Senokot) 17.2 mg Q12H PRN PO 04/18/17 19:30 (Dulcolax Supp) 10 mg DAILY PRN RECTAL 04/18/17 19:30 (Lactulose Liq) 30 ml DAILY PRN PO 04/18/17 19:30 (Heparin Inj) 5,000 units Q8HR SQ 04/19/17 14:00 Hold 05/02/17 12:46 (Apresoline Inj) 10 mg Q6HR PRN IV PUSH 04/21/17 17:00 04/27/17 10:15 (Procardia Xl) 90 mg DAILY PO 04/28/17 09:00 05/13/17 12:59 Clonidine 0.1 mg 0.1 mg Q6H PRN PO 04/27/17 15:00 04/29/17 08:07 (Vepesid Inj/ Adriamycin Inj/ Oncovin Inj/NS 500 ml ([place] Bag) Inj) 515.089 ml @ 21.462 mls/hr Q24H IV 04/30/17 15:00 05/04/17 14:59 Hold (Zofran Inj) 4 mg Q6HR PRN IV PUSH 04/30/17 11:30 05/07/17 10:06 (Phenergan Inj) 25 mg Q6H PRN IM 04/30/17 11:30 05/01/17 13:27 ([place] 5-325 Mg) 1 tab Q6H PRN PO 04/30/17 11:30 05/12/17 02:48 (D50w (Vial) Inj) 25 ml UNSCH PRN IV PUSH 05/02/17 10:00 (NovoLIN R SUPPLEMENTAL SCALE) 1 Q6HR SQ 05/02/17 12:00 05/04/17 18:00 Chlorhexidine Gluconate 15 ml 15 ml BID@08,20 MT 05/02/17 20:00 05/10/17 07:52 Fentanyl Citrate 250 ml @ 0 mls/hr TITRATE IV 05/02/17 10:00 05/10/17 05:36 (Diprivan 1000 Mg/100ml Inj) 100 ml @ 0 mls/hr TITRATE IV 05/02/17 10:00 05/10/17 06:54 Miscellaneous Information Patient in critical care unit? Ass... Q361D .XX 05/02/17 17:15 05/02/17 17:30 (Heparin-D5W Inj) 250 ml @ 0 mls/hr TITRATE IV 05/03/17 02:00 05/13/17 15:09 (Phoslo) 2,668 mg TID PO 05/03/17 09:00 05/13/17 12:59 (Zyloprim) 200 mg DAILY PO 05/06/17 09:00 05/13/17 12:59 (Protonix Inj) 40 mg DAILY IV PUSH 05/07/17 12:00 05/13/17 12:51 Artificial Tears 1 applic 1 applic Q8H EACH EYE 05/07/17 18:00 05/13/17 01:35 (NS 1000 ml Inj) 1,000 ml @ 0 mls/hr TITRATE PRN IV 05/07/17 18:00 05/11/17 18:29 Heparin Sodium (Porcine) 8000 units 8,000 units UNSCH PRN IV FLUSH 05/07/17 18:00 Sodium Chloride 1,000 ml @ 200 mls/hr Q5H PRN IV 05/07/17 18:00 (NS 250 ml Inj) 200 ml @ 0 mls/hr UNSCH PRN IV 05/07/17 18:00 (Mannitol Inj) 12.5 gm UNSCH PRN IV 05/07/17 18:00 (Albumin 25% Inj) 25 gm UNSCH PRN IV 05/07/17 18:00 (NS Flush) 5 ml UNSCH PRN IV FLUSH 05/07/17 18:00 (Heparin Inj) Dwell Heparin to f... UNSCH PRN OTHER 05/07/17 18:00 05/11/17 18:30 (Gentamicin (Dialysis) Inj) 10 mg UNSCH PRN OTHER 05/07/17 18:00 05/11/17 18:29 (Gelfoam 12 Mm/7 Mm Top) 1 foam UNSCH PRN TOPICAL 05/07/17 18:00 (Zofran Inj) 4 mg UNSCH PRN IV 05/07/17 18:00 (Benadryl) 25 mg UNSCH PRN PO 05/07/17 18:00 (Nitrostat Sl) 0.4 mg UNSCH PRN SL 05/07/17 18:00 (Catapres) 0.1 mg UNSCH PRN PO 05/07/17 18:00 (Miralax) 17 gm DAILY PO 05/08/17 09:00 05/10/17 07:52 (Lactulose Liq) 30 ml BID PO 05/08/17 09:00 05/10/17 07:51 (Flagyl) 500 mg Q8HR PO 05/11/17 14:00 05/13/17 15:10 (VANCOMYCIN for oral use only) 500 mg QID PO 05/13/17 13:00 05/13/17 12:51 Vital Signs / I&O Vital Signs Date Time Temp Pulse Resp B/P Pulse Ox O2 Delivery O2 Flow Rate FiO2 05/13/17 16:00 81 05/13/17 16:00 99.0 81 23 118/57 100 05/13/17 15:00 80 05/13/17 14:00 78 05/13/17 13:36 96 Nasal Cannula 2.00 05/13/17 13:00 81 05/13/17 12:00 76 05/13/17 12:00 98.1 76 24 111/60 05/13/17 11:00 79 05/13/17 10:00 76 05/13/17 08:00 77 05/13/17 08:00 98.3 77 21 121/58 97 05/13/17 06:00 80 05/13/17 04:00 80 05/13/17 04:00 98.1 80 23 117/59 99 05/13/17 02:00 79 05/13/17 00:00 97.7 80 19 105/54 99 05/13/17 00:00 80 05/12/17 22:00 80 05/12/17 20:03 96 Nasal Cannula 2.00 05/12/17 20:00 98.1 80 17 112/57 97 05/12/17 20:00 81 05/12/17 18:00 80 I/O 05/12/17 05/12/17 05/12/17 05/13/17 05/13/17 05/13/17 07:00 15:00 23:00 07:00 15:00 23:00 Intake Total 356 ml 138 ml 340 ml 350 ml 746 ml Output Total 0 ml 2501 ml Balance 356 ml 138 ml 340 ml 350 ml -1755 ml Intake Oral 240 ml 340 ml 350 ml 250 ml IV Total 116 ml 138 ml 496 ml Output Urine Total 0 ml Stool Total 1 ml Hemodialysis 2500 ml # Voids 0 1 # Bowel Movements 3 2 1 1 Physical Exam GENERAL: NAD, AAOx3 SKIN: Warm and dry. HEAD: Atraumatic. Normocephalic. EYES: Pupils equal and round. No scleral icterus. No injection or drainage. ENT: No nasal bleeding or discharge. Mucous membranes pink and moist. NECK: Trachea midline. No JVD. CARDIOVASCULAR: Regular rate and rhythm. RESPIRATORY: No accessory muscle use. Decreased breath sounds bilaterally GASTROINTESTINAL: Abdomen soft, non-tender, nondistended. Hepatic and splenic margins not palpable. MUSCULOSKELETAL: Extremities without clubbing, cyanosis, or edema. No obvious deformities. NEUROLOGICAL: Awake and alert. No obvious cranial nerve deficits. Motor grossly within normal limits. Five out of 5 muscle strength in the arms and legs. Normal speech. PSYCHIATRIC: Appropriate mood and affect; insight and judgment normal. Laboratory Laboratory Tests Test 05/13/17 05/13/17 04:54 09:55 White Blood Count 8.7 TH/MM3 Red Blood Count 3.87 MIL/MM3 Hemoglobin 11.0 GM/DL Hematocrit 33.1 % Mean Corpuscular Volume 85.4 FL Mean Corpuscular Hemoglobin 28.4 PG Mean Corpuscular Hemoglobin 33.3 % Concent Red Cell Distribution Width 16.5 % Platelet Count 327 TH/MM3 Mean Platelet Volume 7.1 FL Neutrophils (%) (Auto) 92.7 % Lymphocytes (%) (Auto) 3.1 % Monocytes (%) (Auto) 2.8 % Eosinophils (%) (Auto) 1.0 % Basophils (%) (Auto) 0.4 % Neutrophils # (Auto) 8.1 TH/MM3 Lymphocytes # (Auto) 0.3 TH/MM3 Monocytes # (Auto) 0.2 TH/MM3 Eosinophils # (Auto) 0.1 TH/MM3 Basophils # (Auto) 0.0 TH/MM3 CBC Comment DIFF FINAL Differential Comment Activated Partial 87.1 SEC Thromboplast Time Assessment and Plan Problem List: (1) Pulmonary emboli (2) Cardiogenic shock (3) Shortness of breath (4) Pleural effusion (5) PFO (patent foramen ovale) (6) Non-Hodgkin lymphoma Assessment and Plan 1) Sub-massive PE s/p TPA 2) On heparin with a plan for transfer to oral anti-coagulant per Heme/Onc once able to tolerate 3) Possible PFO on TTE RV/RA/Pulm pressure normal No plan for JOSE LUIS at this time due to having to stop anticoagulation and 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
--- NOTE | 2017-05-13 17:14 | HHI.PR ---
Subjective Remarks Extubated and On O2 3L .No complaints . Has arm swelling Has some arm swelling. Objective Vital Signs Date Time Temp Pulse Resp B/P Pulse Ox O2 Delivery O2 Flow Rate FiO2 05/13/17 16:00 81 05/13/17 16:00 99.0 81 23 118/57 100 05/13/17 15:00 80 05/13/17 14:00 78 05/13/17 13:36 96 Nasal Cannula 2.00 05/13/17 13:00 81 05/13/17 12:00 76 05/13/17 12:00 98.1 76 24 111/60 05/13/17 11:00 79 05/13/17 10:00 76 05/13/17 08:00 77 05/13/17 08:00 98.3 77 21 121/58 97 05/13/17 06:00 80 05/13/17 04:00 80 05/13/17 04:00 98.1 80 23 117/59 99 05/13/17 02:00 79 05/13/17 00:00 97.7 80 19 105/54 99 05/13/17 00:00 80 05/12/17 22:00 80 05/12/17 20:03 96 Nasal Cannula 2.00 05/12/17 20:00 98.1 80 17 112/57 97 05/12/17 20:00 81 05/12/17 18:00 80 I/O 05/12/17 05/12/17 05/12/17 05/13/17 05/13/17 05/13/17 07:00 15:00 23:00 07:00 15:00 23:00 Intake Total 356 ml 138 ml 340 ml 350 ml 746 ml Output Total 0 ml 2501 ml Balance 356 ml 138 ml 340 ml 350 ml -1755 ml Intake Oral 240 ml 340 ml 350 ml 250 ml IV Total 116 ml 138 ml 496 ml Output Urine Total 0 ml Stool Total 1 ml Hemodialysis 2500 ml # Voids 0 1 # Bowel Movements 3 2 1 1 Result Diagram: 05/13/17 0454 05/12/17 1045 Objective Remarks GENERAL: This is a mid aged A/A male , well-developed patient alert . HEENT: Throat clear. CARDIOVASCULAR: Regular rate and rhythm without murmurs, gallops, or rubs. RESPIRATORY: Occ wheezes,diminished breath sounds bilaterally. GASTROINTESTINAL: Abdomen soft, non-tender,nondistended. + bowel sounds MUSCULOSKELETAL: Extremities show 1 + edema of arms. NEURO: awake and responds well.Moves all. Assessment and Plan Assessment and Plan ASSESSMENT 1. Acute kidney injury. 2. Respiratory failure. 3. Acute Pulmonary embolism. 4. Non-Hodgkin's lymphoma. 5. Anemia. 6. Hyperphosphatemia. Plan : 1. Wean O2 to RA. Keep sat >92 2. Nebs tid , duoneb 3. Anticoagulation as Ordered. 4. Swallow test and PO diet 5. IS at bedside q3h 6. PFT when out of ICU. 7. PT and OT 8. Transfer to Floor. Con Pierre MD May 13, 2017 17:14
--- NOTE | 2017-05-13 18:25 | HHI.NPPN ---
Subjective History of Present Illness 47-year-old male with no known past medical history who came to the hospital with complaint of nausea, vomiting and abdominal pain on April 18. I was called to see the patient because of elevated BUN and creatinine. The patient had a creatinine of 1.3 on presentation which improved to 0.7 and 0.8, then started increasing for last few days. Additional Remarks Patient is awake, not fully oriented, not in distress, still having diarrhea, clinically same. Objective Data Data 05/12/17 05/13/17 19:00 07:00 Intake Total 138 ml 690 ml Output Total 0 ml Balance 138 ml 690 ml Intake Oral 690 ml IV Total 138 ml Output Urine Total 0 ml # Voids 0 1 # Bowel Movements 3 1 Vital Signs Date Time Temp Pulse Resp B/P Pulse Ox O2 Delivery O2 Flow Rate FiO2 05/13/17 16:00 81 05/13/17 16:00 99.0 81 23 118/57 100 05/13/17 15:00 80 05/13/17 14:00 78 05/13/17 13:36 96 Nasal Cannula 2.00 05/13/17 13:00 81 05/13/17 12:00 76 05/13/17 12:00 98.1 76 24 111/60 05/13/17 11:00 79 05/13/17 10:00 76 05/13/17 08:00 77 05/13/17 08:00 98.3 77 21 121/58 97 05/13/17 06:00 80 05/13/17 04:00 80 05/13/17 04:00 98.1 80 23 117/59 99 05/13/17 02:00 79 05/13/17 00:00 97.7 80 19 105/54 99 05/13/17 00:00 80 05/12/17 22:00 80 05/12/17 20:03 96 Nasal Cannula 2.00 05/12/17 20:00 98.1 80 17 112/57 97 05/12/17 20:00 81 -: 05/13/17 0454 05/12/17 1045 Physical Exam General Appearance: Anxious, Malnourished Eyes Eye Exam: Pupils Equal Throat Throat Exam: Oral Mucosa Lipan & Moist Pulmonary Resp Exam: Crackles, Rhonchi, Decreased Bases, Diminished Breath Sounds, Poor Inspiratory Effort Cardiology CV Exam: Regular, Normal Sinus Rhythm Gastrointestinal/Abdomen GI Exam: Soft, Non-Tender, Bowel Sounds Present, Distended Extremeties Extremities Exam: Trace Edema Neurologic Neuro Exam: Awake Assessment/Plan Assessment Summary: ALDO/Acute Renal Failure Problem List: (1) Non-Hodgkin lymphoma (2) Adenopathy (3) Pleural effusion (4) Shortness of breath (5) Pulmonary emboli (6) Acute pancreatitis (7) ALDO (acute kidney injury) Plan Patient has minimal urine out put. Urine Na. was low, and Eosinophils negative. Urine out put remain minimal. Patient is extubated. HD done yesterday. Urine out put is minimal. Now has C. Difficile colitis. Continue antibiotics. HD done today and 2.5 liters removed. Follow the urine out put and BMP. HD as needed. Problem Qualifiers (1) Non-Hodgkin lymphoma: (2) Acute pancreatitis: Qualified Code: K85.20 - Alcohol-induced acute pancreatitis, unspecified complication status Leonid Haley MD May 13, 2017 18:25
[2017-05-13 19:26] LABS: APTT (PATIENT) 55.1 SEC (24.3-30.1)
[2017-05-14] VITALS (14 sets, daily range): BP systolic 108–121; BP diastolic 59–65; PULSE 76–89; RESP 19–26; TEMP 98.2–99.5; O2SAT 92–100
[2017-05-14] MEDS: ARTIFICIAL TEARS OPTH OINT 3.5 APPLIC/3.5 GM TUBO EACH EYE SCH ×3 (02:00→18:00)
[2017-05-14 05:17] LABS: AUTOMATED NEUTROPHIL # 6.8 TH/MM3 (1.8-7.7); BASOPHIL % 0.5 % (0.0-2.0); EOSINOPHIL # 0.1 TH/MM3 (0-0.4); HEMATOCRIT 22.5 % (39.0-51.0); HEMO FLAGS DIFF FINAL; LYMPHOCYTE # 0.6 TH/MM3 (1.0-4.8); MEAN CELL VOLUME 83.9 FL (80.0-100.0); MEAN CORPUSCULAR HEMOGLOBIN 29.7 PG (27.0-34.0); MEAN CORPUSCULAR HGB CONC 35.4 % (32.0-36.0); MONO % 5.2 % (0.0-8.0); NEUT % 85.3 % (16.0-70.0); PLATELET COUNT 377 TH/MM3 (150-450); RED BLOOD COUNT 2.67 MIL/MM3 (4.50-5.90); WHITE BLOOD COUNT 7.9 TH/MM3 (4.0-11.0)
[2017-05-14 05:31] LABS: APTT (PATIENT) 73.7 SEC (24.3-30.1)
[2017-05-14 05:53] LABS: ALKALINE PHOSPHATASE 135 U/L (45-117); ALT (GPT) 8 U/L (12-78); ANION GAP 13 MEQ/L (5-15); AST (GOT) 8 U/L (15-37); BICARBONATE 29.3 MEQ/L (21.0-32.0); BLOOD UREA NITROGEN 28 MG/DL (7-18); CHLORIDE 92 MEQ/L (98-107); GLOMERULAR FILTRATION RATE 12 ML/MIN (>89); LDH SERUM 313 U/L (87-241); SODIUM (NA) 134 MEQ/L (136-145); TOTAL BILIRUBIN ADULT 0.7 MG/DL (0.2-1.0)
[2017-05-14 05:57] LABS: POTASSIUM 2.3 MEQ/L (3.5-5.1)
[2017-05-14] MEDS: INSULIN NovoLIN REGULAR SUPPLEMENTAL SCALE SQ SCH ×4 (06:00→18:00)
[2017-05-14] MEDS: metroNIDAZOLE 500 MG TAB PO SCH ×3 (06:24→21:47)
[2017-05-14] MEDS: PANTOPRAZOLE SODIUM 40 MG VIAL IV PUSH SCH (07:54)
[2017-05-14] MEDS: CHLORHEXIDINE 0.12% (ORAL KIT) 15 ML CUP MT SCH ×2 (07:55→20:00)
[2017-05-14] MEDS: CALCIUM ACETATE 667 MG CAP PO SCH ×3 (07:55→18:00)
[2017-05-14] MEDS: NIFEdipine 90 MG SUSTAINED RELEASE TAB PO SCH (07:55)
[2017-05-14] MEDS: ALLOPURINOL 100 MG TAB PO SCH (07:55)
[2017-05-14] MEDS: VANCOMYCIN 500 MG VIAL (FOR ORAL USE ONLY) PO SCH ×4 (07:55→21:47)
[2017-05-14] MEDS: HEPARIN-D5W 25,000 U/250 ML 250 ML IV SCH (09:24)
[2017-05-14 11:03] LABS: APTT (PATIENT) 91.6 SEC (24.3-30.1)
--- NOTE | 2017-05-14 11:40 | HHI.PR ---
Subjective Remarks ill looking but in no acute distress. denies pain. no fever. d/w the RN. Objective Vitals Vital Signs Date Time Temp Pulse Resp B/P Pulse Ox O2 Delivery O2 Flow Rate FiO2 05/14/17 10:00 81 05/14/17 08:00 80 05/14/17 08:00 98.9 80 26 113/62 100 05/14/17 08:00 98.9 80 26 113/62 100 05/14/17 07:47 100 Nasal Cannula 2.00 05/14/17 06:00 83 05/14/17 04:00 99.0 83 19 121/65 96 05/14/17 04:00 83 05/14/17 02:00 80 05/14/17 00:00 99.5 80 24 117/60 97 05/14/17 00:00 80 05/13/17 22:00 81 05/13/17 20:51 96 Nasal Cannula 2.00 05/13/17 20:00 99.1 80 23 112/55 97 05/13/17 20:00 80 05/13/17 16:00 81 05/13/17 16:00 99.0 81 23 118/57 100 05/13/17 15:00 80 05/13/17 14:00 78 05/13/17 13:36 96 Nasal Cannula 2.00 05/13/17 13:00 81 05/13/17 12:00 76 05/13/17 12:00 98.1 76 24 111/60 I/O 05/13/17 05/13/17 05/13/17 05/14/17 05/14/17 05/14/17 07:00 15:00 23:00 07:00 15:00 23:00 Intake Total 350 ml 746 ml 595 ml 349 ml Output Total 2501 ml 0 ml Balance 350 ml -1755 ml 595 ml 349 ml Intake Oral 350 ml 250 ml 500 ml 240 ml IV Total 496 ml 95 ml 109 ml Stool Total 1 ml 0 ml Hemodialysis 2500 ml # Voids 1 # Bowel Movements 1 Result Diagram: 05/14/17 0425 05/14/17 0425 Imaging Last Impressions Chest X-Ray 05/12/17 0600 Signed Impressions: Service Date/Time: Friday, May 12, 2017 03:33 - CONCLUSION: 1. No significant change in the hazy opacity in the perihilar regions of both lung bases. 2. The right paratracheal mass is unchanged. 3. Interval extubation and removal of nasogastric tube. Goldy Suarez MD Abdomen X-Ray 05/12/17 0600 Signed Impressions: Service Date/Time: Friday, May 12, 2017 03:36 - CONCLUSION: No significant change in the bowel gas pattern. Goldy Suarez MD Abdomen/Pelvis CT 05/09/17 0000 Signed Impressions: Service Date/Time: Tuesday, May 09, 2017 21:16 - CONCLUSION: 1. Diffusely distended loops of small bowel down to the cecum suggest ileus. 2. Evidence of mesenteric and retroperitoneal adenopathy. 3. Large bilateral pleural effusions , moderate amount of free fluid in the pelvis and mild ascites in the upper abdomen. 4. Abnormal appearance to the parenchyma of the right kidney with patchy areas of hyperdensity in a mosaic pattern. This of uncertain significance. The patient had iodinated contrast for a CT pulmonary angiogram 7 days ago; this could potentially represent residual parenchymal contrast which would be nonspecific, but raises the possibility of either obstruction or renal infarctions. Bryon Evans MD Renal Ultrasound 05/05/17 0000 Signed Impressions: Service Date/Time: Friday, May 05, 2017 20:06 - CONCLUSION: 1. Kidneys are borderline echogenic which can be seen with medical renal disease. 2. No evidence of hydronephrosis. 3. Abdominal ascites. 4. Multiple dilated bowel loops. 5. Bilateral pleural effusions. Tray Patel MD Head CT 05/03/17 0000 Signed Impressions: Service Date/Time: Wednesday, May 03, 2017 17:22 - CONCLUSION: No acute intracranial disease. No hemorrhage seen. Tray Patel MD CT Angiography 05/02/17 0000 Signed Impressions: Service Date/Time: Tuesday, May 02, 2017 11:10 - CONCLUSION: 1. There is pulmonary embolus in the right pulmonary artery, right upper lobe and lower lobe branches. 2. Resorption of previously seen gas in the left axilla with fluid collection at this site with postprocedural change and possibly postprocedural hemorrhage not significantly changed in size. 3. Interval development of right lung airspace process may represent postobstructive pneumonia and there is mucus within the trachea not present yesterday. 4. Right pleural effusion is smaller and left pleural effusion is larger. 5. No change in bulky adenopathy. Leonor Chavez MD Upper Extremity Ultrasound 04/30/17 Signed Impressions: Service Date/Time: April 12:25 - CONCLUSION: There some superficial thrombosis of a vein in the forearm. The deep venous system is patent. Large fluid collection left axilla. Significant soft tissue edema throughout the upper arm. Rinku Hillman MD Thoracentesis Ultrasound 04/30/17 Signed Impressions: Service Date/Time: April 12:14 - CONCLUSION: Uncomplicated ultrasound guided thoracentesis. Tray Patel MD Port Line Insertion 04/27/17 Signed Impressions: Service Date/Time: Thursday, April 27, 2017 14:56 - CONCLUSION: 1. Bulky bilateral lower cervical lymphadenopathy. 2. Uncomplicated ultrasound and fluoroscopic guided implanted central venous port catheter placement as described in detail above. An 8 [employer] port was placed. Liang Peralta MD Bone Biopsy CT 04/27/17 Signed Impressions: Service Date/Time: Thursday, April 27, 2017 16:22 - CONCLUSION: 1. Uncomplicated CT guided bone marrow aspirate. 2. Uncomplicated CT guided bone marrow biopsy. Tray Patel MD Chest CT 04/25/17 Signed Impressions: Service Date/Time: Wednesday, April 26, 2017 19:00 - CONCLUSION: The right pleural effusion is slightly larger on the left side has not changed. Extensive bulky adenopathy as before and malignancies such as lymphoma is suspected. Leonor Chavez MD Gall Bladder Ultrasound 04/22/17 Signed Impressions: Service Date/Time: Saturday, April 22, 2017 07:35 - CONCLUSION: Small liver with focal abdomen only incompletely evaluated. Large right pleural effusion. effusion. Kirk Briceño MD FACR Abdomen CT 04/20/17 Signed Impressions: Service Date/Time: Thursday, April 20, 2017 19:40 - CONCLUSION: Limited exam because of lack of intravenous contrast. Lymphoma is suspected. Pathological diagnosis could be obtained with ultrasound biopsy of the cervical, axillary or inguinal adenopathy. Kirk Briceño MD FACR Objective Remarks GENERAL:ill looking but in no acute distress CARDIOVASCULAR: Regular rate and regular rhythm without murmurs, gallops, or rubs. RESPIRATORY: Clear to auscultation. Breath sounds equal bilaterally. No wheezes , rales, or rhonchi. GASTROINTESTINAL: Abdomen soft, non-tender, nondistended. Normal, active bowel sounds MUSCULOSKELETAL: Extremities without clubbing, cyanosis, or edema. NEURO: awake and alert Procedures 04/[address] excision biopsy 04/27- port placement 05/02-TPA 05/06-left IJ Vas-Cath placement endotracheal intubation Medications and IVs Current Medications Ondansetron HCl 4 mg 4 mg ONCE ONCE IVP Last administered on 04/18/17 17:38; Start 04/18/17 at 17:30; Stop 04/18/17 at 17:31; Status DC Sodium Chloride (NS 1000 ml Inj) 1,000 ml @ 1,000 mls/hr Q1H IV Last administered on 04/18/17 17:38; Start 04/18/17 at 17:16; Stop 04/18/17 at 18:15; Status DC Sodium Chloride 2 ml 2 ml UNSCH PRN IV FLUSH FLUSH AFTER USING IV ACCESS Last administered on 04/21/17 22:27; Start 04/18/17 at 17:30 Sodium Chloride 1,000 ml @ 1,000 mls/hr Q1H IV Last administered on 04/18/17 18:40; Start 04/18/17 at 18:37; Stop 04/18/17 at 19:36; Status DC Potassium Chloride (KCl 20 Meq Premix Inj) 100 ml @ 50 mls/hr Q2H IV Last administered on 04/18/17 22:12; Start 04/18/17 at 19:00; Stop 04/18/17 at 22:59; Status DC Ondansetron HCl (Zofran Inj) 4 mg Q6H PRN IVP NAUSEA OR VOMITING Last administered on 04/26/17 06:04; Start 04/18/17 at 19:30; Stop 04/26/17 at 13:02 ; Status DC Morphine Sulfate (Morphine Inj) 2 mg Q3H PRN IV Pain 3-5; if unable to take PO ; Start 04/18/17 at 19:30; Status Cancel Morphine Sulfate (Morphine Inj) 4 mg Q3H PRN IV Pain 6-10;if unable to take PO ; Start 04/18/17 at 19:30; Status Cancel Naloxone HCl (Narcan Inj) 0.4 mg UNSCH PRN IV SEE LABEL COMMENTS; Start at 19:30 Senna/Docusate Sodium (Porsha-Colace) 1 tab BID PO Last administered on 07:52; Start 04/18/17 at 21:00; Stop 05/13/17 at 17:16; Status DC Magnesium Hydroxide (Milk Of Magnesia Liq) 30 ml Q12H PRN PO MILD - MODERATE CONSTIPATION Last administered on 05/09/17 08:01; Start 04/18/17 at 19:30; Stop 05/13/17 at 17:16; Status DC Sennosides (Senokot) 17.2 mg Q12H PRN PO MODERATE - SEVERE CONSTIPATION; Start 04/18/17 at 19:30; Stop 05/13/17 at 17:16; Status DC Bisacodyl (Dulcolax Supp) 10 mg DAILY PRN RECTAL SEVERE CONSITIPATION; Start at 19:30; Stop 05/13/17 at 17:16; Status DC Lactulose 30 ml 30 ml DAILY PRN PO SEVERE CONSITIPATION; Start 04/18/17 at 19:30 ; Stop 05/13/17 at 17:16; Status DC Potassium Chloride/Sodium Chloride 1,000 ml @ 125 mls/hr Q8H IV ; Start at 21:00; Stop 04/18/17 at 21:00; Status DC Potassium Chloride/Sodium Chloride 1,000 ml @ 83 mls/hr Q12H3M IV Last administered on 04/23/17 01:19; Start 04/19/17 at 02:00; Stop 04/23/17 at 09:04 ; Status DC Sodium Chloride (NS 1000 ml Inj) 1,000 ml @ 125 mls/hr Q8H IV Last administered on 04/18/17 20:00; Start 04/18/17 at 20:00; Stop 04/19/17 at 16:01; Status DC Pneumococcal Polyvalent Vaccine 25 mcg 25 mcg ONCE ONCE IM Last administered on 04/19/17 11:20; Start 04/19/17 at 09:00; Stop 04/19/17 at 09:01; Status DC Ceftriaxone Sodium/Sodium Chloride (Rocephin Inj/NS Inj) 100 ml @ 200 mls/hr Q24H IV Last administered on 04/24/17 12:51; Start 04/19/17 at 13:00; Stop at 14:33; Status DC Heparin Sodium (Porcine) (Heparin Inj) 5,000 units Q8HR SQ Last administered on 05/02/17 12:46; Start 04/19/17 at 14:00; Status Hold Azithromycin (Zithromax) 500 mg Q24H PO Last administered on 04/24/17 12:51; Start 04/19/17 at 13:00; Stop 04/24/17 at 14:33; Status DC Clonidine (Catapres) 0.1 mg ONCE ONCE PO Last administered on 04/20/17 22:16 ; Start 04/20/17 at 21:45; Stop 04/20/17 at 21:46; Status DC Nifedipine (Procardia Xl) 30 mg DAILY PO Last administered on 04/25/17 09:42; Start 04/21/17 at 17:00; Stop 04/25/17 at 13:12; Status DC Hydralazine HCl 10 mg 10 mg Q6HR PRN IV PUSH SBP>160, DBP>90 Last administered on 04/27/17 10:15; Start 04/21/17 at 17:00 Cefazolin Sodium/ Sodium Chloride (Ancef Inj/NS Inj) 100 ml @ 200 mls/hr [employer] IV ; Start 04/21/17 at 21:30; Stop 04/24/17 at 21:29; Status DC Midazolam HCl (Versed Inj) 2 mg STK-MED ONCE .ROUTE Last administered on 09:02; Start 04/22/17 at 09:02; Stop 04/22/17 at 09:03; Status DC Bupivacaine HCl/ Epinephrine Bitart (Sensorcaine-Epi 0.5% 50 ml Inj) 50 ml STK- MED ONCE INFIL ; Start 04/22/17 at 09:25; Stop 04/22/17 at 09:26; Status Cancel Albuterol Sulfate (*ALBUTEROL NEB PERIprocedure ONLY) 2.5 mg STK-MED ONCE NEB Last administered on 04/22/17 10:06; Start 04/22/17 at 10:06; Stop 04/22/17 at 10:07; Status DC Fentanyl Citrate (fentaNYL INJ) 200 mcg STK-MED ONCE .ROUTE ; Start 04/22/17 at 10:10; Stop 04/22/17 at 10:11; Status DC Bupivacaine HCl (Marcaine Pf 0.5% Inj) 30 ml STK-MED ONCE INFIL Last administered on 04/22/17 09:25; Start 04/22/17 at 09:25; Stop 04/22/17 at 10:49 ; Status DC Miscellaneous Information ALL NURSING DEPARTME... UNSCH PRN .XX SEE LABEL COMMENTS; Start 04/22/17 at 10:01; Stop 04/23/17 at 10:00; Status DC Dextrose/Sodium Chloride 1,000 ml @ 60 mls/hr [id number] IV Last administered on 04/24/17 06:40; Start 04/23/17 at 12:45; Stop 04/24/17 at 14:36; Status DC Potassium Chloride/Dextrose/ Sodium Chloride (KCl Inj/D5W-NS 1000 ml Inj) 1,015 ml @ 70 mls/hr [id number] IV Last administered on 04/25/17 05:34; Start at 16:00; Stop 04/25/17 at 13:12; Status DC Promethazine HCl (Phenergan Inj) 25 mg ONCE ONCE IM Last administered on 11:55; Start 04/25/17 at 08:00; Stop 04/25/17 at 08:01; Status DC Nifedipine 60 mg 60 mg DAILY PO Last administered on 04/27/17 10:02; Start at 09:00; Stop 04/27/17 at 14:48; Status DC Potassium Chloride/Dextrose/ Sodium Chloride (KCl Inj/D5W-NS 1000 ml Inj) 1,015 ml @ 60 mls/hr [id number] IV Last administered on 04/27/17 18:18; Start at 15:00; Stop 04/28/17 at 11:49; Status DC Promethazine HCl (Phenergan Inj) 12.5 mg Q8H PRN IM PERSISTENT NAUSEA Last administered on 04/30/17 04:34; Start 04/26/17 at 13:15; Stop 04/30/17 at 11:28 ; Status DC Allopurinol 300 mg 300 mg DAILY PO Last administered on 05/05/17 08:12; Start 04/27/17 at 09:00; Stop 05/05/17 at 12:10; Status DC Vancomycin HCl 1000 mg/Sodium Chloride 250 ml @ 250 mls/hr [employer] IV Last administered on 04/27/17 13:49; Start 04/27/17 at 10:00; Stop 04/30/17 at 09:59 ; Status DC Cefazolin Sodium/ Dextrose (Ancef 2 Gm Premix) 50 ml @ 100 mls/hr [employer] IV Last administered on 04/27/17 15:42; Start 04/27/17 at 10:00; Stop 04/30/17 at 09:59; Status DC Nifedipine (Procardia Xl) 90 mg DAILY PO Last administered on 05/14/17 07:55; Start 04/28/17 at 09:00 Clonidine (Catapres) 0.1 mg Q12HR PO ; Start 04/27/17 at 21:00; Status UNV Clonidine (Catapres) 0.1 mg Q6H PRN PO SBP>160, DBP>90 Last administered on 08:07; Start 04/27/17 at 15:00 Heparin Sodium (Porcine) (*HEPARIN CENTRAL FLUSH PERIprocedural ONLY) 500 units STK-MED ONCE IV FLUSH Last administered on 04/27/17 14:51; Start 04/27/17 at 14:51; Stop 04/27/17 at 14:52; Status DC Lidocaine/ Epinephrine (Xylocaine-Epi 1%-1:100,000 Inj) 20 ml STK-MED ONCE .ROUTE Last administered on 04/27/17 14:51; Start 04/27/17 at 14:51; Stop at 14:52; Status DC Midazolam HCl (Versed Inj) 5 mg STK-MED ONCE .ROUTE Last administered on 14:52; Start 04/27/17 at 14:52; Stop 04/27/17 at 14:53; Status DC Fentanyl Citrate 250 mcg 250 mcg STK-MED ONCE .ROUTE Last administered on 14:53; Start 04/27/17 at 14:53; Stop 04/27/17 at 14:54; Status DC Sodium Chloride (NS 1000 ml Inj) 1,000 ml @ 100 mls/hr Q10H IV Last administered on 04/29/17 17:55; Start 04/29/17 at 15:00; Stop 04/30/17 at 00:59 ; Status DC Acetaminophen (Tylenol) 650 mg ONCE ONCE PO Last administered on 04/30/17 16: 44; Start 04/30/17 at 13:00; Stop 04/30/17 at 13:01; Status DC Diphenhydramine HCl 50 mg 50 mg ONCE ONCE PO Last administered on 04/30/17 16 :43; Start 04/30/17 at 13:00; Stop 04/30/17 at 13:01; Status DC Rituximab/Sodium Chloride (Rituxan Inj/NS 500 ml Inj) 571.625 ml @ 0 mls/hr ONCE ONCE IV Last administered on 05/01/17 13:15; Start 04/30/17 at 14:00; Stop 04/30/17 at 14:01; Status DC Prednisone 115 mg 115 mg Q12H PO ; Start 04/30/17 at 13:00; Stop 05/01/17 at 11: 21; Status DC Dexamethasone Sodium Phosphate 20 mg/Granisetron HCl 1 mg/Sodium Chloride 56 ml @ 224 mls/hr Q24H IV ; Start 04/30/17 at 15:00; Stop 05/01/17 at 11:26; Status DC Potassium Chloride 100 ml @ 50 mls/hr BOLUS ONCE IV Last administered on 04/30 10:20; Start 04/30/17 at 10:00; Stop 04/30/17 at 11:59; Status DC Etoposide 95.5 mg/ Doxorubicin HCl 19.1 mg/ Vincristine Sulfate 0.764 mg/ Sodium Chloride 515.089 ml @ 21.462 mls/hr Q24H IV ; Start 04/30/17 at 15:00; Stop 05/04/17 at 14:59; Status Hold Cyclophosphamide/ Sodium Chloride (Cytoxan Inj/NS 500 ml Inj) 500 ml @ 500 mls/ hr ONCE ONCE IV ; Start 05/04/17 at 14:00; Stop 05/04/17 at 14:59; Status DC Ondansetron HCl (Zofran Inj) 4 mg Q6HR PRN IV PUSH NAUSEA OR VOMITING Last administered on 05/07/17 10:06; Start 04/30/17 at 11:30 Promethazine HCl (Phenergan Inj) 25 mg Q6H PRN IM NAUSEA OR VOMITING Last administered on 05/01/17 13:27; Start 04/30/17 at 11:30 Acetaminophen/ Hydrocodone Bitart ([place] 5-325 Mg) 1 tab Q6H PRN PO PAIN SCALE 1 TO 10 Last administered on 05/12/17 02:48; Start 04/30/17 at 11:30 Albuterol/ Ipratropium (Duoneb Neb) 1 ampule ONCE ONCE NEB Last administered on 04/30/17 20:16; Start 04/30/17 at 19:45; Stop 04/30/17 at 20:11; Status DC Albuterol/ Ipratropium (Duoneb Neb) 1 ampule Q2HR NEB PRN NEB sob, wheeze; Start 04/30/17 at 20:45; Stop 05/02/17 at 10:14; Status DC Morphine Sulfate (Morphine Inj) 2 mg ONCE ONCE IV PUSH Last administered on 23:36; Start 04/30/17 at 23:30; Stop 04/30/17 at 23:31; Status DC Furosemide (Lasix Inj) 10 mg ONCE ONCE IV PUSH Last administered on 05/01/17 01:01; Start 05/01/17 at 00:00; Stop 05/01/17 at 00:01; Status DC Furosemide (Lasix Inj) 20 mg ONCE ONCE IV PUSH Last administered on 05/01/17 09:09; Start 05/01/17 at 07:45; Stop 05/01/17 at 07:52; Status DC Acetaminophen (Tylenol) 650 mg NOW ONCE PO Last administered on 05/01/17 10: 51; Start 05/01/17 at 10:45; Stop 05/01/17 at 10:46; Status DC Diphenhydramine HCl 50 mg 50 mg NOW ONCE PO Last administered on 05/01/17 10: 51; Start 05/01/17 at 10:45; Stop 05/01/17 at 10:46; Status DC Rituximab/Sodium Chloride (Rituxan Inj/NS 500 ml Inj) 571.625 ml @ 0 mls/hr ONCE ONCE IV ; Start 05/01/17 at 12:00; Stop 05/01/17 at 12:01; Status DC Acetaminophen (Tylenol) 650 mg ONCE ONCE PO ; Start 05/01/17 at 11:30; Stop at 11:31; Status DC Diphenhydramine HCl (Benadryl) 50 mg ONCE ONCE PO ; Start 05/01/17 at 11:30; Stop 05/01/17 at 11:31; Status DC Prednisone 115 mg 115 mg Q12HR PO Last administered on 05/02/17 20:08; Start 05/01/17 at 11:00; Stop 05/05/17 at 21:01; Status DC Dexamethasone Sodium Phosphate/ Granisetron HCl/ Sodium Chloride (Decadron Inj/ Kytril Inj/NS Inj) 56 ml @ 224 mls/hr Q24H IV ; Start 05/01/17 at 11:30; Stop 05/06/17 at 11:44; Status DC Metoclopramide HCl (Reglan Inj) 10 mg Q8HR IV PUSH Last administered on 04:59; Start 05/01/17 at 15:30; Stop 05/09/17 at 19:03; Status DC Pantoprazole Sodium (Protonix) 40 mg DAILY PO Last administered on 05/06/17 08 :17; Start 05/01/17 at 16:00; Stop 05/07/17 at 11:49; Status DC Furosemide (Lasix Inj) 20 mg ONCE ONCE IV PUSH Last administered on 05/01/17 16:14; Start 05/01/17 at 15:30; Stop 05/01/17 at 15:31; Status DC Albuterol/ Ipratropium (Duoneb Neb) 1 ampule BID NEB INH Last administered on 05/02/17 07:47; Start 05/01/17 at 20:00; Stop 05/02/17 at 10:18; Status DC Furosemide (Lasix Inj) 20 mg STAT ONCE IV PUSH Last administered on 05/02/17 08:40; Start 05/02/17 at 08:30; Stop 05/02/17 at 08:37; Status DC Etomidate (Amidate Inj) 20 mg STK-MED ONCE .ROUTE Last administered on 12:48; Start 05/02/17 at 09:23; Stop 05/02/17 at 09:24; Status DC Dextrose (D50w (Vial) Inj) 25 ml UNSCH PRN IV PUSH HYPOGLYCEMIA-SEE COMMENTS; Start 05/02/17 at 10:00 Insulin Human Regular (NovoLIN R SUPPLEMENTAL SCALE) 1 Q6HR SQ Last administered on 05/04/17 18:00; Start 05/02/17 at 12:00 Chlorhexidine Gluconate (Peridex 0.12% Liq) 15 ml BID@08,20 MT Last administered on 05/10/17 07:52; Start 05/02/17 at 20:00 Magnesium Oxide 800 mg 800 mg UNSCH PRN PO For Magnesium 1.2 - 1.6 mg/dL; Start 05/02/17 at 10:00; Stop 05/03/17 at 13:51; Status DC Magnesium Sulfate 4 gm/Sodium Chloride 100 ml @ 50 mls/hr UNSCH PRN IV For Magnesium 0.9 - 1.1 mg/dL; Start 05/02/17 at 10:00; Stop 05/03/17 at 13:51; Status DC Magnesium Sulfate 2 gm/Sodium Chloride 100 ml @ 50 mls/hr UNSCH PRN IV For Magnesium 1.2 - 1.6 mg/dL; Start 05/02/17 at 10:00; Stop 05/03/17 at 13:51; Status DC Potassium Chloride 100 ml @ 50 mls/hr Q2H PRN IV For Potassium 2.8 - 3.2 mEq/L ; Start 05/02/17 at 10:00; Stop 05/03/17 at 13:51; Status DC Potassium Chloride 100 ml @ 50 mls/hr Q2H PRN IV For Potassium 3.3 - 3.5 mEq/L ; Start 05/02/17 at 10:00; Stop 05/03/17 at 13:51; Status DC Potassium Chloride 100 ml @ 50 mls/hr Q2H PRN IV For Potassium 2.8 - 3.2 mEq/L ; Start 05/02/17 at 10:00; Stop 05/03/17 at 13:51; Status DC Potassium Chloride (KCl 40 Meq Premix Inj) 100 ml @ 25 mls/hr UNSCH PRN IV For Potassium 3.3 - 3.5 mEq/L; Start 05/02/17 at 10:00; Stop 05/03/17 at 13:51; Status DC Potassium Phosphate (K-Phos) 2,000 mg Q4H PRN PO For Phosphorus < 2.5 mg/dL; Start 05/02/17 at 10:00; Stop 05/03/17 at 13:51; Status DC Potassium Phosphate 2000 mg 2,000 mg UNSCH PRN PO/TUBE SEE LABEL COMMENTS; Start 05/02/17 at 10:00; Stop 05/03/17 at 13:51; Status DC Potassium Phosphate 30 mmol/ Sodium Chloride 260 ml @ 42 mls/hr UNSCH PRN IV SEE LABEL COMMENTS; Start 05/02/17 at 10:00; Stop 05/03/17 at 13:52; Status DC Sodium Phosphate/ Sodium Chloride (Sodium Phosphate Inj/NS 250 ml Inj) 250 ml @ 42 mls/hr UNSCH PRN IV For Phosphorus < 2.5 mg/dL; Start 05/02/17 at 10:00; Stop 05/03/17 at 13:52; Status DC Albuterol/ Ipratropium (Duoneb Neb) 1 ampule Q6HR NEB INH Last administered on 05/06/17 03:23; Start 05/02/17 at 10:00; Stop 05/06/17 at 10:00; Status DC Albuterol/ Ipratropium 1 ampule 1 ampule Q2HR NEB PRN INH WHEEZING Last administered on 05/08/17 08:08; Start 05/02/17 at 10:00 Fentanyl Citrate 250 ml @ 0 mls/hr TITRATE IV Last administered on 05/10/17 05 :36; Start 05/02/17 at 10:00 Propofol (Diprivan 1000 Mg/100ml Inj) 100 ml @ 0 mls/hr TITRATE IV Last administered on 05/10/17 06:54; Start 05/02/17 at 10:00 Iohexol 75 ml 75 ml STK-MED ONCE IV Last administered on 05/02/17 11:31; Start 05/02/17 at 11:31; Stop 05/02/17 at 11:32; Status DC Cefepime HCl 2000 mg/Sodium Chloride 100 ml @ 200 mls/hr Q12H IV Last administered on 05/05/17 02:43; Start 05/02/17 at 15:00; Stop 05/05/17 at 11:53 ; Status DC Vancomycin HCl/ Sodium Chloride (Vancomycin Inj/ NS 250 ml Inj) 250 ml @ 250 mls/hr ONCE ONCE IV Last administered on 05/02/17 16:14; Start 05/02/17 at 15 :00; Stop 05/02/17 at 15:59; Status DC Heparin Sodium (Porcine) (Heparin Inj) 5,000 units ONCE ONCE IV Last administered on 05/02/17 15:35; Start 05/02/17 at 16:00; Stop 05/02/17 at 16:01 ; Status DC Miscellaneous Information Patient in critical care unit? Ass... [id number] .XX Last administered on 05/02/17 17:30; Start 05/02/17 at 17:15 Chlorhexidine Gluconate (Chlorhexidine 2% Cloth) 3 pack DAILY@04 TOPICAL Last administered on 05/07/17 03:45; Start 05/03/17 at 04:00; Stop 05/07/17 at 04:01 ; Status DC Chlorhexidine Gluconate 3 pack 3 pack UNSCH PRN TOPICAL HYGIENIC CARE; Start at 17:15; Stop 05/07/17 at 17:08; Status DC Alteplase, Recombinant/ Syringe / Bag (Activase Drip/ Syringe/Bag) 49.9999 ml @ 50 mls/hr ONCE ONCE IV Last administered on 05/02/17 19:58; Start 05/02/17 at 19:15; Stop 05/02/17 at 20:14; Status DC Sodium Chloride (NS Inj) 30 ml ONCE ONCE IVF Last administered on 05/02/17 19 :15; Start 05/02/17 at 19:15; Stop 05/02/17 at 19:28; Status DC Miscellaneous Medication Thrombolysis plan for submass... ONCE ONCE OTHER Last administered on 05/02/17 19:15; Start 05/02/17 at 19:15; Stop 05/02/17 at 19:28; Status DC Heparin Sodium/ Dextrose 250 ml @ 0 mls/hr TITRATE IV Last administered on 09:24; Start 05/03/17 at 02:00 Epinephrine HCl/ Dextrose (Adrenalin (1:1000) Inj/D5W Inj) 250 ml @ 30 mls/hr TITRATE IV Last administered on 05/04/17 09:43; Start 05/03/17 at 10:15; Stop 05/07/17 at 16:44; Status DC Calcium Acetate 2668 mg 2,668 mg TID PO Last administered on 05/13/17 18:14; Start 05/03/17 at 09:00 Epoprostenol Sodium/Sodium Chloride (Flolan (30,000 Ng/ml) Neb/NS Inj) 100 ml @ 8 mls/hr Q8H NEB Last administered on 05/04/17 00:17; Start 05/03/17 at 09:00 ; Stop 05/04/17 at 14:14; Status DC Lidocaine HCl 50 ml 50 ml STK-MED ONCE .ROUTE ; Start 05/03/17 at 12:21; Stop at 12:22; Status DC Epoprostenol Sodium 40 ml/ Sodium Chloride 100 ml @ 8 mls/hr Q8H NEB Last administered on 05/06/17 06:04; Start 05/04/17 at 15:00; Stop 05/06/17 at 12:43 ; Status DC Calcium Gluconate 2 gm/Dextrose 120 ml @ 120 mls/hr ONCE ONCE IV Last administered on 05/04/17 20:00; Start 05/04/17 at 20:00; Stop 05/04/17 at 20:59 ; Status DC Cefepime HCl/ Sodium Chloride (Maxipime Inj/NS Inj) 100 ml @ 200 mls/hr Q24H IV Last administered on 05/08/17 01:36; Start 05/06/17 at 03:00; Stop at 23:00; Status DC Allopurinol (Zyloprim) 200 mg DAILY PO Last administered on 05/14/17 07:55; Start 05/06/17 at 09:00 Artificial Tears (Tears Naturale Opth Soln) 1 drop Q8H EACH EYE Last administered on 05/07/17 10:06; Start 05/05/17 at 18:00; Stop 05/07/17 at 12:11 ; Status DC Fentanyl Citrate (fentaNYL INJ) 100 mcg STK-MED ONCE IV ; Start 04/22/17 at 12: 00; Stop 05/06/17 at 12:46; Status DC Propofol (Diprivan 200 Mg/20 ml Inj) 200 mg STK-MED ONCE IV ; Start 04/22/17 at 12:00; Stop 05/06/17 at 12:46; Status DC Phenylephrine HCl (Neosynephrine/ NS 1000 Mcg/10ml Syr) 1,000 mcg STK-MED ONCE IV ; Start 04/22/17 at 12:00; Stop 05/06/17 at 12:47; Status DC Ondansetron HCl (Zofran Inj) 4 mg STK-MED ONCE IV PUSH ; Start 04/22/17 at 12:00 ; Stop 05/06/17 at 12:47; Status DC Pantoprazole Sodium (Protonix Inj) 40 mg DAILY IV PUSH Last administered on 05/14 07:54; Start 05/07/17 at 12:00 Artificial Tears 1 applic 1 applic Q8H EACH EYE Last administered on 05/14/17 10:00; Start 05/07/17 at 18:00 Sodium Chloride (NS 1000 ml Inj) 1,000 ml @ 0 mls/hr TITRATE PRN IV WITH DIALYSIS Last administered on 05/11/17 18:29; Start 05/07/17 at 18:00 Heparin Sodium (Porcine) 8000 units 8,000 units UNSCH PRN IV FLUSH WITH DIALYSIS; Start 05/07/17 at 18:00 Sodium Chloride 1,000 ml @ 200 mls/hr Q5H PRN IV WITH DIALYSIS; Start 05/07/17 at 18:00 Sodium Chloride (NS 250 ml Inj) 200 ml @ 0 mls/hr UNSCH PRN IV WITH DIALYSIS; Start 05/07/17 at 18:00 Mannitol (Mannitol Inj) 12.5 gm UNSCH PRN IV WITH DIALYSIS; Start 05/07/17 at 18:00 Albumin Human (Albumin 25% Inj) 25 gm UNSCH PRN IV WITH DIALYSIS; Start at 18:00 Sodium Chloride (NS Flush) 5 ml UNSCH PRN IV FLUSH WITH DIALYSIS; Start at 18:00 Heparin Sodium (Porcine) (Heparin Inj) Dwell Heparin to f... UNSCH PRN OTHER WITH DIALYSIS Last administered on 05/11/17 18:30; Start 05/07/17 at 18:00 Gentamicin Sulfate (Gentamicin (Dialysis) Inj) 10 mg UNSCH PRN OTHER WITH DIALYSIS Last administered on 05/11/17 18:29; Start 05/07/17 at 18:00 Gelatin (Gelfoam 12 Mm/7 Mm Top) 1 foam UNSCH PRN TOPICAL WITH DIALYSIS; Start 05/07/17 at 18:00 Ondansetron HCl (Zofran Inj) 4 mg UNSCH PRN IV NAUSEA OR VOMITING; Start at 18:00 Acetaminophen (Tylenol) 650 mg UNSCH X1 PRN PO WITH DIALYSIS Last administered on 05/08/17 10:07; Start 05/07/17 at 18:00; Stop 05/14/17 at 17:59 Diphenhydramine HCl (Benadryl) 25 mg UNSCH PRN PO WITH DIALYSIS; Start at 18:00 Nitroglycerin (Nitrostat Sl) 0.4 mg UNSCH PRN SL WITH DIALYSIS; Start 05/07/17 at 18:00 Clonidine (Catapres) 0.1 mg UNSCH PRN PO WITH DIALYSIS; Start 05/07/17 at 18:00 Polyethylene Glycol (Miralax) 17 gm DAILY PO Last administered on 05/10/17 07: 52; Start 05/08/17 at 09:00; Stop 05/13/17 at 17:16; Status DC Lactulose (Lactulose Liq) 30 ml BID PO Last administered on 05/10/17 07:51; Start 05/08/17 at 09:00; Stop 05/13/17 at 17:16; Status DC Bisacodyl (Dulcolax Supp) 10 mg DAILY PRN RECTAL CONSTIPATION; Start 05/08/17 at 08:15; Stop 05/08/17 at 08:16; Status DC Diatrizoate Meglum/ Diatrizoate Sod ( Gastroview Liq) 18 ml ONCE ONCE PO Last administered on 05/09/17 16:42; Start 05/09/17 at 14:15; Stop 05/09/17 at 14:16; Status DC Heparin Sodium (Porcine) 300 units 300 units NOW ONCE IV ; Start 05/09/17 at 18 :30; Stop 05/09/17 at 18:31; Status DC Potassium Chloride (KCl 20 Meq Premix Inj) 100 ml @ 50 mls/hr BOLUS ONCE IV Last administered on 05/10/17 13:31; Start 05/10/17 at 12:30; Stop 05/10/17 at 14:29; Status DC Sucralfate 1 gm 1 gm Q8HR PO Last administered on 05/13/17 04:46; Start at 14:00; Stop 05/13/17 at 13:59; Status DC Potassium Chloride (KCl 20 Meq Premix Inj) 100 ml @ 50 mls/hr ONCE ONCE IV Last administered on 05/11/17 08:54; Start 05/11/17 at 08:30; Stop 05/11/17 at 10:29; Status DC Metronidazole (Flagyl) 500 mg Q8HR PO Last administered on 05/14/17 06:24; Start 05/11/17 at 14:00 Morphine Sulfate 4 mg 4 mg NOW ONCE IV PUSH Last administered on 05/12/17 09: 58; Start 05/12/17 at 09:45; Stop 05/12/17 at 09:46; Status DC Potassium Chloride (KCl 40 Meq Premix Inj) 100 ml @ 25 mls/hr ONCE ONCE IV Last administered on 05/12/17 13:51; Start 05/12/17 at 13:45; Stop 05/12/17 at 17: 44; Status DC Vancomycin HCl (VANCOMYCIN for oral use only) 500 mg QID PO Last administered on 05/14/17 07:55; Start 05/13/17 at 13:00 A/P Assessment and Plan A/P Acute Hypoxic Respiratory Failure Acute Submassive Pulmonary Embolism Bilateral pleural effusions, large, acute --continue nebs -- was extubated on 05/10. Remains on nasal cannula. Acute Submassive Pulmonary Embolism Right Heart Dysfunction Global severe left ventricular systolic dysfunction Cardiogenic Shock -- high risk for sudden cardiac s/p acute PE -- 2d echo 05/02: EF 30-35%, RV dysfunction with dilation --Repeat ECHO limited study scheduled on 05/09-RV function appears to have normalized, question of interatrial shunt for which cardiology consulted-d/w Dr. Taveras, recommended that once off anticoagulation, would need to be on ASA and require f/u echo periodically for evaluation. Acute Kidney Injury Hypokalemia -- likely secondary to cardiogenic shock - Nephrology following, Dr. Haley --Left IJ vas catheter, on hemodialysis --Hemodialysis per nephrology -replace potassium cautiously in light of kidney failure Hyperphosphatemia Hyperkalemia Hypocalcemia Acute protein calorie malnutrition- severe Ileus -- 05/08 tube feeds on hold, G-tube to LIWS suction the patient extubated on at which time OG tube was removed --General surgery to follow up on ileus versus SBO. -GI consulted, appreciate recommendations -Expanded bowel regimen MiraLAX, lactulose, due to site suppository - OG tube removed with extubation on 05/11. GI general surgery following. Attempting advancing by mouth. Acute Large Cell B-cell lymphoma Pulmonary Embolism C. difficile colitis -- hematology/oncology following Dr. Connelly-tentative plan to resume CHOP therapy once medically improved. -- chemo on hold secondary to his acute life-threatening illnesses. Golf Ball Trimmer to decide regarding initiation of chemotherapy for lymphoma. -- continue heparin drip,Maintain goal PTT 60 - 80. Will eventually transition to Coumadin ID following. On PO Flagyl per ID, by mouth vancomycin added by ID on 05/13 for C. difficile colitis Hyperglycemia of Critical Illness -- SSI, q6h, med scale Msk: --PT evaluation and treat --Multi-Podus boots --PT daily functional maintenance Prophylaxis: DVT: SCDs, heparin drip GI: protonix transfer to telemetry. Catalina Eller MD May 14, 2017 11:40
--- NOTE | 2017-05-14 13:01 | HHI.NPPN ---
Subjective History of Present Illness 47-year-old male with no known past medical history who came to the hospital with complaint of nausea, vomiting and abdominal pain on April 18. I was called to see the patient because of elevated BUN and creatinine. The patient had a creatinine of 1.3 on presentation which improved to 0.7 and 0.8, then started increasing for last few days. Additional Remarks Patient is awake, not fully oriented, not in distress, not eating much, mild abd. pain. Objective Data Data 05/13/17 05/14/17 19:00 07:00 Intake Total 746 ml 944 ml Output Total 2501 ml 0 ml Balance -1755 ml 944 ml Intake Oral 250 ml 740 ml IV Total 496 ml 204 ml Stool Total 1 ml 0 ml Hemodialysis 2500 ml Vital Signs Date Time Temp Pulse Resp B/P Pulse Ox O2 Delivery O2 Flow Rate FiO2 05/14/17 12:00 84 05/14/17 12:00 98.2 80 24 109/60 93 05/14/17 10:00 81 05/14/17 08:00 80 05/14/17 08:00 98.9 80 26 113/62 100 05/14/17 08:00 98.9 80 26 113/62 100 05/14/17 07:47 100 Nasal Cannula 2.00 05/14/17 06:00 83 05/14/17 04:00 99.0 83 19 121/65 96 05/14/17 04:00 83 05/14/17 02:00 80 05/14/17 00:00 99.5 80 24 117/60 97 05/14/17 00:00 80 05/13/17 22:00 81 05/13/17 20:51 96 Nasal Cannula 2.00 05/13/17 20:00 99.1 80 23 112/55 97 05/13/17 20:00 80 05/13/17 16:00 81 05/13/17 16:00 99.0 81 23 118/57 100 05/13/17 15:00 80 05/13/17 14:00 78 05/13/17 13:36 96 Nasal Cannula 2.00 -: 05/14/17 0425 05/14/17 0425 Physical Exam General Appearance: Anxious, Malnourished Eyes Eye Exam: Pupils Equal Throat Throat Exam: Oral Mucosa [place] & Moist Pulmonary Resp Exam: Crackles, Rhonchi, Decreased Bases, Diminished Breath Sounds, Poor Inspiratory Effort Cardiology CV Exam: Regular, Normal Sinus Rhythm Gastrointestinal/Abdomen GI Exam: Soft, Non-Tender, Bowel Sounds Present, Distended Extremeties Extremities Exam: Trace Edema Neurologic Neuro Exam: Awake Assessment/Plan Assessment Summary: ALDO/Acute Renal Failure Problem List: (1) Non-Hodgkin lymphoma (2) Adenopathy (3) Pleural effusion (4) Shortness of breath (5) Pulmonary emboli (6) Acute pancreatitis (7) ALDO (acute kidney injury) Plan Patient has minimal urine out put. Urine Na. was low, and Eosinophils negative. Urine out put is minimal. Now has C. Difficile colitis. Continue antibiotics. HD will be in AM. K was low and replaced. Problem Qualifiers (1) Non-Hodgkin lymphoma: (2) Acute pancreatitis: Qualified Code: K85.20 - Alcohol-induced acute pancreatitis, unspecified complication status Leonid Haley MD May 14, 2017 13:01 Qualified Code: K85.20 - Alcohol-induced acute pancreatitis, unspecified complication status Leonid Haley MD May 14, 2017 13:01
[2017-05-14 13:36] LABS: APTT (PATIENT) 50.3 SEC (24.3-30.1)
--- NOTE | 2017-05-14 13:58 | HHI.GIFU ---
Subjective Remarks Pt resting in bed. Says he is having more lower abd pain today. Diarrhea is improved. (Freya Figueroa) Objective Vitals I&O Vital Signs Date Time Temp Pulse Resp B/P Pulse Ox O2 Delivery O2 Flow Rate FiO2 05/14/17 12:00 84 05/14/17 12:00 98.2 80 24 109/60 93 05/14/17 10:00 81 05/14/17 08:00 80 05/14/17 08:00 98.9 80 26 113/62 100 05/14/17 08:00 98.9 80 26 113/62 100 05/14/17 07:47 100 Nasal Cannula 2.00 05/14/17 06:00 83 05/14/17 04:00 99.0 83 19 121/65 96 05/14/17 04:00 83 05/14/17 02:00 80 05/14/17 00:00 99.5 80 24 117/60 97 05/14/17 00:00 80 05/13/17 22:00 81 05/13/17 20:51 96 Nasal Cannula 2.00 05/13/17 20:00 99.1 80 23 112/55 97 05/13/17 20:00 80 05/13/17 16:00 81 05/13/17 16:00 99.0 81 23 118/57 100 05/13/17 15:00 80 05/13/17 14:00 78 I/O 05/13/17 05/13/17 05/13/17 05/14/17 05/14/17 05/14/17 07:00 15:00 23:00 07:00 15:00 23:00 Intake Total 350 ml 746 ml 595 ml 349 ml Output Total 2501 ml 0 ml Balance 350 ml -1755 ml 595 ml 349 ml Intake Oral 350 ml 250 ml 500 ml 240 ml IV Total 496 ml 95 ml 109 ml Stool Total 1 ml 0 ml Hemodialysis 2500 ml # Voids 1 # Bowel Movements 1 Laboratory Laboratory Tests Test 05/13/17 05/14/17 05/14/17 05/14/17 18:42 04:25 10:30 13:00 Activated Partial 55.1 73.7 91.6 50.3 Thromboplast Time White Blood Count 7.9 Red Blood Count 2.67 Hemoglobin 7.9 Hematocrit 22.5 Mean Corpuscular Volume 83.9 Mean Corpuscular Hemoglobin 29.7 Mean Corpuscular Hemoglobin 35.4 Concent Red Cell Distribution Width 16.0 Platelet Count 377 Mean Platelet Volume 7.5 Neutrophils (%) (Auto) 85.3 Lymphocytes (%) (Auto) 8.0 Monocytes (%) (Auto) 5.2 Eosinophils (%) (Auto) 1.0 Basophils (%) (Auto) 0.5 Neutrophils # (Auto) 6.8 Lymphocytes # (Auto) 0.6 Monocytes # (Auto) 0.4 Eosinophils # (Auto) 0.1 Basophils # (Auto) 0.0 CBC Comment DIFF FINAL Differential Comment Sodium Level 134 Potassium Level 2.3 Chloride Level 92 Carbon Dioxide Level 29.3 Anion Gap 13 Blood Urea Nitrogen 28 Creatinine 5.99 Estimat Glomerular Filtration 12 Rate Random Glucose 108 Calcium Level 8.6 Total Bilirubin 0.7 Aspartate Amino Transf 8 (AST/SGOT) Alanine Aminotransferase 8 (ALT/SGPT) Alkaline Phosphatase 135 Lactate Dehydrogenase 313 Total Protein 6.1 Albumin 2.0 Date/Time Procedure Status Source Growth 05/11/17 15:00 Urine Culture - Preliminary Resulted Urine Catheterized Urine Mae Species Imaging Last Impressions Chest X-Ray 05/12/17 0600 Signed Impressions: Service Date/Time: Friday, May 12, 2017 03:33 - CONCLUSION: 1. No significant change in the hazy opacity in the perihilar regions of both lung bases. 2. The right paratracheal mass is unchanged. 3. Interval extubation and removal of nasogastric tube. Goldy Suarez MD Abdomen X-Ray 05/12/17 0600 Signed Impressions: Service Date/Time: Friday, May 12, 2017 03:36 - CONCLUSION: No significant change in the bowel gas pattern. Goldy Suarez MD Abdomen/Pelvis CT 05/09/17 0000 Signed Impressions: Service Date/Time: Tuesday, May 09, 2017 21:16 - CONCLUSION: 1. Diffusely distended loops of small bowel down to the cecum suggest ileus. 2. Evidence of mesenteric and retroperitoneal adenopathy. 3. Large bilateral pleural effusions , moderate amount of free fluid in the pelvis and mild ascites in the upper abdomen. 4. Abnormal appearance to the parenchyma of the right kidney with patchy areas of hyperdensity in a mosaic pattern. This of uncertain significance. The patient had iodinated contrast for a CT pulmonary angiogram 7 days ago; this could potentially represent residual parenchymal contrast which would be nonspecific, but raises the possibility of either obstruction or renal infarctions. Bryon Evans MD Renal Ultrasound 05/05/17 Signed Impressions: Service Date/Time: Friday, May 05, 2017 20:06 - CONCLUSION: 1. Kidneys are borderline echogenic which can be seen with medical renal disease. 2. No evidence of hydronephrosis. 3. Abdominal ascites. 4. Multiple dilated bowel loops. 5. Bilateral pleural effusions. Tray Patel MD Head CT 05/03/17 Signed Impressions: Service Date/Time: Wednesday, May 03, 2017 17:22 - CONCLUSION: No acute intracranial disease. No hemorrhage seen. Tray Patel MD CT Angiography 05/02/17 Signed Impressions: Service Date/Time: Tuesday, May 02, 2017 11:10 - CONCLUSION: 1. There is pulmonary embolus in the right pulmonary artery, right upper lobe and lower lobe branches. 2. Resorption of previously seen gas in the left axilla with fluid collection at this site with postprocedural change and possibly postprocedural hemorrhage not significantly changed in size. 3. Interval development of right lung airspace process may represent postobstructive pneumonia and there is mucus within the trachea not present yesterday. 4. Right pleural effusion is smaller and left pleural effusion is larger. 5. No change in bulky adenopathy. Leonor Chavez MD Upper Extremity Ultrasound 04/30/17 Signed Impressions: Service Date/Time: April 12:25 - CONCLUSION: There some superficial thrombosis of a vein in the forearm. The deep venous system is patent. Large fluid collection left axilla. Significant soft tissue edema throughout the upper arm. Rinku Hillman MD Thoracentesis Ultrasound 04/30/17 0000 Signed Impressions: Service Date/Time: , April 30, 2017 12:14 - CONCLUSION: Uncomplicated ultrasound guided thoracentesis. Tray Patel MD Port Line Insertion 04/27/17 Signed Impressions: Service Date/Time: Thursday, April 27, 2017 14:56 - CONCLUSION: 1. Bulky bilateral lower cervical lymphadenopathy. 2. Uncomplicated ultrasound and fluoroscopic guided implanted central venous port catheter placement as described in detail above. An 8 [place] [employer] port was placed. Liang Peralta MD Bone Biopsy CT 04/27/17 0000 Signed Impressions: Service Date/Time: Thursday, April 27, 2017 16:22 - CONCLUSION: 1. Uncomplicated CT guided bone marrow aspirate. 2. Uncomplicated CT guided bone marrow biopsy. Tray Patel MD Chest CT 04/25/17 0000 Signed Impressions: Service Date/Time: Wednesday, April 26, 2017 19:00 - CONCLUSION: The right pleural effusion is slightly larger on the left side has not changed. Extensive bulky adenopathy as before and malignancies such as lymphoma is suspected. Leonor Chavez MD Gall Bladder Ultrasound 04/22/17 0000 Signed Impressions: Service Date/Time: Saturday, April 22, 2017 07:35 - CONCLUSION: Small liver with focal abdomen only incompletely evaluated. Large right pleural effusion. effusion. Kirk Briceño MD FACR Abdomen CT 04/20/17 0000 Signed Impressions: Service Date/Time: Thursday, April 20, 2017 19:40 - CONCLUSION: Limited exam because of lack of intravenous contrast. Lymphoma is suspected. Pathological diagnosis could be obtained with ultrasound biopsy of the cervical, axillary or inguinal adenopathy. Kirk Briceño MD FACR Physical Exam HEENT: PERRL. Normocephalic; atraumatic; no jaundice. CHEST: CTA CARDIAC: RRR ABDOMEN: soft, mildly Distended, nontender; no hepatosplenomegaly; bowel sounds hypoactive EXTREMITIES: left arm edematous SKIN: Normal; no rash; no jaundice. MEDICAL RECORD SPECIALIST:more alert today (Freya Figueroa INTEGRATION AIDE) Assessment and Plan Plan ASSESSMENT - Abdominal distention, emesis - PSBO vs ileus. KUB 7-31 showing mod to severe ileus; fu KUB 8-1 no significant change from previous. KUB 05/08/17--Air-filled mildly dilated loops of small bowel suggesting ileus or partial small bowel obstruction. Abdomen/Pelvis CT 05/09/17-- 1. Diffusely distended loops of small bowel down to the cecum suggest ileus. 2. Evidence of mesenteric and retroperitoneal adenopathy. 3. Large bilateral pleural effusions, moderate amount of free fluid in the pelvis and mild ascites in the upper abdomen. 4. Abnormal appearance to the parenchyma of the right kidney with patchy areas of hyperdensity in a mosaic pattern. This of uncertain significance. The patient had iodinated contrast for a CT pulmonary angiogram 7 days ago; this could potentially represent residual parenchymal contrast which would be nonspecific, but raises the possibility of either obstruction or renal infarctions. General surgery following. - c diff - pos tox c diff PCR. on Flagyl. - leukocytosis - improved - Acute hypoxic respiratory failure, extubated. Chest X-Ray 05/10/17--Tubes and catheters are in good position. Bilateral pleural effusions persist. Right paratracheal stripe widening is unchanged - PE, ALDO on HD, b cell lymphoma - per [facility] PLAN - if n/v, NGT - KUB in am - popsicles and ice chips per GS - when eating full liquids per ST - GS following - continue flagyl - if not improvement consider EGD/colonoscopy - Further recommendations to follow based on results of above Patient seen and examined by Dr. Park and myself and this note is written on her behalf. (Freya Figueroa) Physician Comments seen, examined agree with above trial of Marinol consider psychiatry consult-suspect some degree of depression (Daily Park MD) Freya Figueroa May 14, 2017 13:58 Daily Park MD May 14, 2017 19:55
--- NOTE | 2017-05-14 15:23 | HHI.IDPN ---
Subjective Subjective Remarks Patient is a 47-year-old male, initially presented to the hospital complaining of abdominal pain, nausea, and vomiting. He was found to have pancreatitis, and he also had elevated liver function tests. There is history of previous alcohol abuse. He was also found to have a right base pneumonia, and he was started on a Zithromax and Rocephin. Patient also had some abnormality on his urinalysis and was also being treated for UTI. His imaging study showed right hilar mass, and he had evidence on exam of supraclavicular lymph nodes. CT of the chest revealed pleural effusion, and extensive mediastinal and axillary lymphadenopathy. 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 Oncology has been following the patient, and patient was started on chemotherapy on April 30. Patient's pancreatitis has improved although he still has some abdominal pain. He got Rituxan on on May 08, and he is currently getting Decadron, cyclophosphamide, as well as etoposide /Doxorubicin/Vincristine. This morning he went into respiratory failure, and transferred to the ICU, and ended up getting intubated. Pulmonary started seeing the patient around April 29 and at that time he had shortness of breath. He had bilateral pleural effusion, and underwent thoracentesis on the right, and the fluid is exudative. Patient had CTA today, and it showed pulmonary embolism, as well as no infiltrates on the right side. He is afebrile. Currently on the vent, and on sedation. Notes reviewed Temps ok BP ok Diarrhea better C diff came back (+) On nasal O2 Looks very weak Finished Abx 05/08 Antibiotics Flagyl Vanco po Lines Port Vascath Past Medical History Previous tobacco and ETOH use Allergies: Coded Allergies: No Known Allergies (Unverified , 04/18/17) Objective . Vital Signs Date Time Temp Pulse Resp B/P Pulse Ox O2 Delivery O2 Flow Rate FiO2 05/14/17 14:00 89 05/14/17 12:00 84 05/14/17 12:00 98.2 80 24 109/60 93 05/14/17 10:00 81 05/14/17 08:00 80 05/14/17 08:00 98.9 80 26 113/62 100 05/14/17 08:00 98.9 80 26 113/62 100 05/14/17 07:47 100 Nasal Cannula 2.00 05/14/17 06:00 83 05/14/17 04:00 99.0 83 19 121/65 96 05/14/17 04:00 83 05/14/17 02:00 80 05/14/17 00:00 99.5 80 24 117/60 97 05/14/17 00:00 80 05/13/17 22:00 81 05/13/17 20:51 96 Nasal Cannula 2.00 05/13/17 20:00 99.1 80 23 112/55 97 05/13/17 20:00 80 05/13/17 16:00 81 05/13/17 16:00 99.0 81 23 118/57 100 05/13/17 05/13/17 05/14/17 14:59 22:59 06:59 Intake Total 746 ml 595 ml 349 ml Output Total 2501 ml 0 ml Balance -1755 ml 595 ml 349 ml Intake Oral 250 ml 500 ml 240 ml IV Total 496 ml 95 ml 109 ml Stool Total 1 ml 0 ml Hemodialysis 2500 ml . Laboratory Tests Test 05/13/17 05/14/17 04:54 04:25 White Blood Count 8.7 TH/MM3 7.9 TH/MM3 Red Blood Count 3.87 MIL/MM3 2.67 MIL/MM3 Hemoglobin 11.0 GM/DL 7.9 GM/DL Hematocrit 33.1 % 22.5 % Mean Corpuscular Volume 85.4 FL 83.9 FL Mean Corpuscular Hemoglobin 28.4 PG 29.7 PG Mean Corpuscular Hemoglobin 33.3 % 35.4 % Concent Red Cell Distribution Width 16.5 % 16.0 % Platelet Count 327 TH/MM3 377 TH/MM3 Mean Platelet Volume 7.1 FL 7.5 FL Neutrophils (%) (Auto) 92.7 % 85.3 % Lymphocytes (%) (Auto) 3.1 % 8.0 % Monocytes (%) (Auto) 2.8 % 5.2 % Eosinophils (%) (Auto) 1.0 % 1.0 % Basophils (%) (Auto) 0.4 % 0.5 % Neutrophils # (Auto) 8.1 TH/MM3 6.8 TH/MM3 Lymphocytes # (Auto) 0.3 TH/MM3 0.6 TH/MM3 Monocytes # (Auto) 0.2 TH/MM3 0.4 TH/MM3 Eosinophils # (Auto) 0.1 TH/MM3 0.1 TH/MM3 Basophils # (Auto) 0.0 TH/MM3 0.0 TH/MM3 CBC Comment DIFF FINAL DIFF FINAL Differential Comment Laboratory Tests Test 05/14/17 04:25 Sodium Level 134 MEQ/L Potassium Level 2.3 MEQ/L Chloride Level 92 MEQ/L Carbon Dioxide Level 29.3 MEQ/L Anion Gap 13 MEQ/L Blood Urea Nitrogen 28 MG/DL Creatinine 5.99 MG/DL Estimat Glomerular Filtration 12 ML/MIN Rate Random Glucose 108 MG/DL Calcium Level 8.6 MG/DL Total Bilirubin 0.7 MG/DL Aspartate Amino Transf 8 U/L (AST/SGOT) Alanine Aminotransferase 8 U/L (ALT/SGPT) Alkaline Phosphatase 135 U/L Lactate Dehydrogenase 313 U/L Total Protein 6.1 GM/DL Albumin 2.0 GM/DL Imaging Chest X-Ray 05/12/17 0600 Signed Impressions: Service Date/Time: Friday, May 12, 2017 03:33 - CONCLUSION: 1. No significant change in the hazy opacity in the perihilar regions of both lung bases. 2. The right paratracheal mass is unchanged. 3. Interval extubation and removal of nasogastric tube. Goldy Suarez MD Abdomen X-Ray 05/12/17 0600 Signed Impressions: Service Date/Time: Friday, May 12, 2017 03:36 - CONCLUSION: No significant change in the bowel gas pattern. Goldy Suarez MD Abdomen X-Ray 05/11/17 0000 Signed Impressions: Service Date/Time: Thursday, May 11, 2017 15:59 - CONCLUSION: 1. Findings consistent with moderate to severe adynamic ileus versus partial small bowel obstruction. Liang Peralta MD Chest X-Ray 05/10/17 0600 Signed Impressions: Service Date/Time: Wednesday, May 10, 2017 03:45 - CONCLUSION: Tubes and catheters are in good position. Bilateral pleural effusions persist. Right paratracheal stripe widening is unchanged Rinku Hillman MD Chest X-Ray 05/09/17 0600 Signed Impressions: Service Date/Time: Tuesday, May 09, 2017 03:15 - CONCLUSION: Perihilar vascular congestion with pleural effusions left greater than right. Tubes and catheters are in good position. Stable widening of the right paratracheal stripe Rinku Hillman MD Abdomen/Pelvis CT 05/09/17 0000 Signed Impressions: Service Date/Time: Tuesday, May 09, 2017 21:16 - CONCLUSION: 1. Diffusely distended loops of small bowel down to the cecum suggest ileus. 2. Evidence of mesenteric and retroperitoneal adenopathy. 3. Large bilateral pleural effusions , moderate amount of free fluid in the pelvis and mild ascites in the upper abdomen. 4. Abnormal appearance to the parenchyma of the right kidney with patchy areas of hyperdensity in a mosaic pattern. This of uncertain significance. The patient had iodinated contrast for a CT pulmonary angiogram 7 days ago; this could potentially represent residual parenchymal contrast which would be nonspecific, but raises the possibility of either obstruction or renal infarctions. Bryon Evans MD Last Impressions Chest X-Ray 05/03/17 0600 Signed Impressions: Service Date/Time: Wednesday, May 03, 2017 03:46 - CONCLUSION: Improving infiltrates. No Tacos Garcia MD Head CT 05/02/17 0000 Signed Impressions: Service Date/Time: Tuesday, May 02, 2017 16:45 - CONCLUSION: No acute intracranial disease. Tray Patel MD CT Angiography 05/02/17 0000 Signed Impressions: Service Date/Time: Tuesday, May 02, 2017 11:10 - CONCLUSION: 1. There is pulmonary embolus in the right pulmonary artery, right upper lobe and lower lobe branches. 2. Resorption of previously seen gas in the left axilla with fluid collection at this site with postprocedural change and possibly postprocedural hemorrhage not significantly changed in size. 3. Interval development of right lung airspace process may represent postobstructive pneumonia and there is mucus within the trachea not present yesterday. 4. Right pleural effusion is smaller and left pleural effusion is larger. 5. No change in bulky adenopathy. Leonor Chavez MD Upper Extremity Ultrasound 04/30/17 0000 Signed Impressions: Service Date/Time: April 12:25 - CONCLUSION: There some superficial thrombosis of a vein in the forearm. The deep venous system is patent. Large fluid collection left axilla. Significant soft tissue edema throughout the upper arm. Rinku Hillman MD Thoracentesis Ultrasound 04/30/17 0000 Signed Impressions: Service Date/Time: April 12:14 - CONCLUSION: Uncomplicated ultrasound guided thoracentesis. Tray Patel MD Port Line Insertion 04/27/17 0000 Signed Impressions: Service Date/Time: Thursday, April 27, 2017 14:56 - CONCLUSION: 1. Bulky bilateral lower cervical lymphadenopathy. 2. Uncomplicated ultrasound and fluoroscopic guided implanted central venous port catheter placement as described in detail above. An 8 [employer] Power port was placed. Liang Peralta MD Bone Biopsy CT 04/27/17 0000 Signed Impressions: Service Date/Time: Thursday, April 27, 2017 16:22 - CONCLUSION: 1. Uncomplicated CT guided bone marrow aspirate. 2. Uncomplicated CT guided bone marrow biopsy. Tray Patel MD Chest CT 04/25/17 0000 Signed Impressions: Service Date/Time: Wednesday, April 26, 2017 19:00 - CONCLUSION: The right pleural effusion is slightly larger on the left side has not changed. Extensive bulky adenopathy as before and malignancies such as lymphoma is suspected. Leonor Chavez MD Gall Bladder Ultrasound 04/22/17 0000 Signed Impressions: Service Date/Time: Saturday, April 22, 2017 07:35 - CONCLUSION: Small liver with focal abdomen only incompletely evaluated. Large right pleural effusion. effusion. Kirk Briceño MD FACR Abdomen CT 04/20/17 0000 Signed Impressions: Service Date/Time: Thursday, April 20, 2017 19:40 - CONCLUSION: Limited exam because of lack of intravenous contrast. Lymphoma is suspected. Pathological diagnosis could be obtained with ultrasound biopsy of the cervical, axillary or inguinal adenopathy. Kirk Briceño MD FACR Physical Exam GENERAL: awake and responsive, looks very weak, not in respiratory distress. On nasal O2 SKIN: Warm and dry. No generalized rash HEAD: Atraumatic. Normocephalic. No temporal wasting, or tenderness. EYES: [place] conjunctiva. No petechia or hemorrhage. Pupils equal, round and reactive to light. Has dirty sclera. No injection or drainage. EARS, NOSE AND THROAT: Nose without bleeding or purulent nasal discharge. Dry oral mucosa, poor dentition NECK: Trachea midline. Supple and not tender, no meningeal signs. Has significant lymphadenopathy. CARDIOVASCULAR: Regular rate and rhythm. No murmurs, rubs or gallops heard RESPIRATORY: Decreased BS at bases, with few rhonchi. Port look ok. ABDOMEN: Still distended, hypoactive bowel sounds, tympanitic, not tender. No guarding, no rebound EXTREMITIES: No clubbing, cyanosis, or edema. No joint effusion. Warm. Has very dry skin both feet. NEUROLOGICAL: Awake and responding PSYCHIATRIC: Calm and cooperative LINE: Port and vascath with no evidence of infection. : Singh in place, urine looks clear Assessment & Plan Remarks IMPRESSION Respiratory failure, with multiple PE on R, has new infiltrates, ?PNA, ? infarct - PE on R and infiltrates on R - extubated 05/10, seems to be doing well Has Tomi effusions, tap is exudative, ?lymphoma New NHL, has received some chemo Pancreatitis, and elevated LFT likely due to ETOH, stable Acute renal failure, ?sepsis, ?contrast Ileus, now with diarrhea Leukocytosis, better C difficile colitis RECOMMENDATION Continue Flagyl Continue po Vancomycin Avoid systemic Abx if possible Monitor temps Monitor progress Maggy Solis MD May 14, 2017 15:23
[2017-05-14] MEDS: DRONABINOL 5 MG CAP PO SCH (16:07)
--- NOTE | 2017-05-14 16:30 | PD.ONC.PN ---
Subjective Subjective Remarks Afebrile overnight Pt resting in bed in no distress He c/o SOB He denies chest pain Objective Data Date Time Temp Pulse Resp B/P Pulse Ox O2 Delivery O2 Flow Rate FiO2 05/14/17 16:00 99.4 79 24 108/59 92 05/14/17 16:00 76 05/14/17 14:00 89 05/14/17 12:00 84 05/14/17 12:00 98.2 80 24 109/60 93 05/14/17 10:00 81 05/14/17 08:00 80 05/14/17 08:00 98.9 80 26 113/62 100 05/14/17 08:00 98.9 80 26 113/62 100 05/14/17 07:47 100 Nasal Cannula 2.00 05/14/17 06:00 83 05/14/17 04:00 99.0 83 19 121/65 96 05/14/17 04:00 83 05/14/17 02:00 80 05/14/17 00:00 99.5 80 24 117/60 97 05/14/17 00:00 80 05/13/17 22:00 81 05/13/17 20:51 96 Nasal Cannula 2.00 05/13/17 20:00 99.1 80 23 112/55 97 05/13/17 20:00 80 05/14/17 05/14/17 05/14/17 07:00 15:00 23:00 Intake Total 349 ml 407 ml Output Total 0 ml 0 ml Balance 349 ml 407 ml Result Diagram: 05/14/17 0425 05/14/17 0425 Laboratory Results Laboratory Tests Test 05/13/17 05/14/17 05/14/17 05/14/17 18:42 04:25 10:30 13:00 Activated Partial 55.1 SEC 73.7 SEC 91.6 SEC 50.3 SEC Thromboplast Time White Blood Count 7.9 TH/MM3 Red Blood Count 2.67 MIL/MM3 Hemoglobin 7.9 GM/DL Hematocrit 22.5 % Mean Corpuscular Volume 83.9 FL Mean Corpuscular Hemoglobin 29.7 PG Mean Corpuscular Hemoglobin 35.4 % Concent Red Cell Distribution Width 16.0 % Platelet Count 377 TH/MM3 Mean Platelet Volume 7.5 FL Neutrophils (%) (Auto) 85.3 % Lymphocytes (%) (Auto) 8.0 % Monocytes (%) (Auto) 5.2 % Eosinophils (%) (Auto) 1.0 % Basophils (%) (Auto) 0.5 % Neutrophils # (Auto) 6.8 TH/MM3 Lymphocytes # (Auto) 0.6 TH/MM3 Monocytes # (Auto) 0.4 TH/MM3 Eosinophils # (Auto) 0.1 TH/MM3 Basophils # (Auto) 0.0 TH/MM3 CBC Comment DIFF FINAL Differential Comment Sodium Level 134 MEQ/L Potassium Level 2.3 MEQ/L Chloride Level 92 MEQ/L Carbon Dioxide Level 29.3 MEQ/L Anion Gap 13 MEQ/L Blood Urea Nitrogen 28 MG/DL Creatinine 5.99 MG/DL Estimat Glomerular Filtration 12 ML/MIN Rate Random Glucose 108 MG/DL Calcium Level 8.6 MG/DL Total Bilirubin 0.7 MG/DL Aspartate Amino Transf 8 U/L (AST/SGOT) Alanine Aminotransferase 8 U/L (ALT/SGPT) Alkaline Phosphatase 135 U/L Lactate Dehydrogenase 313 U/L Total Protein 6.1 GM/DL Albumin 2.0 GM/DL Administered Medications Medications (Trade) Dose Ordered Sig/Shyla Route PRN Reason Start Time Stop Time Status Last Admin Dose Admin Sodium Chloride (NS Flush) 2 ml UNSCH PRN IV FLUSH FLUSH AFTER USING IV ACCESS 04/18/17 17:30 04/21/17 22:27 Heparin Sodium (Porcine) (Heparin Inj) 5,000 units Q8HR SQ 04/19/17 14:00 Hold 05/02/17 12:46 Hydralazine HCl (Apresoline Inj) 10 mg Q6HR PRN IV PUSH SBP>160, DBP>90 04/21/17 17:00 04/27/17 10:15 Nifedipine (Procardia Xl) 90 mg DAILY PO 04/28/17 09:00 05/14/17 07:55 Clonidine (Catapres) 0.1 mg Q6H PRN PO SBP>160, DBP>90 04/27/17 15:00 04/29/17 08:07 Ondansetron HCl (Zofran Inj) 4 mg Q6HR PRN IV PUSH NAUSEA OR VOMITING 04/30/17 11:30 05/07/17 10:06 Promethazine HCl (Phenergan Inj) 25 mg Q6H PRN IM NAUSEA OR VOMITING 04/30/17 11:30 05/01/17 13:27 Acetaminophen/ Hydrocodone Bitart ([place] 5-325 Mg) 1 tab Q6H PRN PO PAIN SCALE 1 TO 10 04/30/17 11:30 05/12/17 02:48 Insulin Human Regular (NovoLIN R SUPPLEMENTAL SCALE) 1 Q6HR SQ 05/02/17 12:00 05/04/17 18:00 Chlorhexidine Gluconate 15 ml 15 ml BID@08,20 MT 05/02/17 20:00 05/10/17 07:52 Fentanyl Citrate 250 ml @ 0 mls/hr TITRATE IV 05/02/17 10:00 05/10/17 05:36 Propofol (Diprivan 1000 Mg/100ml Inj) 100 ml @ 0 mls/hr TITRATE IV 05/02/17 10:00 05/10/17 06:54 Miscellaneous Information Patient in critical care unit? Ass... Q361D .XX 05/02/17 17:15 05/02/17 17:30 Heparin Sodium/ Dextrose (Heparin-D5W Inj) 250 ml @ 0 mls/hr TITRATE IV 05/03/17 02:00 05/14/17 09:24 Calcium Acetate (Phoslo) 2,668 mg TID PO 05/03/17 09:00 05/14/17 13:24 Allopurinol (Zyloprim) 200 mg DAILY PO 05/06/17 09:00 05/14/17 07:55 Pantoprazole Sodium (Protonix Inj) 40 mg DAILY IV PUSH 05/07/17 12:00 05/14/17 07:54 Artificial Tears 1 applic 1 applic Q8H EACH EYE 05/07/17 18:00 05/14/17 10:00 Sodium Chloride (NS 1000 ml Inj) 1,000 ml @ 0 mls/hr TITRATE PRN IV WITH DIALYSIS 05/07/17 18:00 05/11/17 18:29 Heparin Sodium (Porcine) (Heparin Inj) Dwell Heparin to f... UNSCH PRN OTHER WITH DIALYSIS 05/07/17 18:00 05/11/17 18:30 Gentamicin Sulfate (Gentamicin (Dialysis) Inj) 10 mg UNSCH PRN OTHER WITH DIALYSIS 05/07/17 18:00 05/11/17 18:29 Metronidazole (Flagyl) 500 mg Q8HR PO 05/11/17 14:00 05/14/17 13:24 Vancomycin HCl (VANCOMYCIN for oral use only) 500 mg QID PO 05/13/17 13:00 05/14/17 13:24 Dronabinol (Marinol) 5 mg BID@11,16 PO 05/14/17 16:00 05/14/17 16:07 Objective Remarks GENERAL: Thin, weak-appearing middle-aged male resting in bed. He appears comfortable. SKIN: Warm and dry. HEAD: Normocephalic. EYES: No injection or drainage. NECK: Supple, trachea midline. Bilateral supraclavicular adenopathy R>L, relatively stable. CARDIOVASCULAR: Regular rate and rhythm without murmurs. RESPIRATORY: Breath sounds equal bilaterally. No accessory muscle use. GASTROINTESTINAL: Abdomen soft, non-tender, nondistended. EXTREMITIES: No cyanosis, or edema. NEUROLOGICAL: No obvious focal deficit. Awake, alert, and oriented x3. Assessment/Plan Problem List: (1) Pulmonary emboli Status: Acute Plan: --will bridge to coumadin once tolerating meals --CTA showed large PE --s/p tpa therapy on 05.02. now on heparin gtt. (2) Non-Hodgkin lymphoma Status: Acute Plan: --remains critically ill; no further chemo until stable. --Has aggressive triple hit lymphoma. --Received Rituxan x1. --Neck adenopathy relatively stable. (3) ALDO (acute kidney injury) Status: Acute Plan: Renal function has not recovered. Remains on HD. Minimal urine output. (4) Cardiogenic shock Status: Acute (5) Anemia Status: Acute Plan: Multifactorial. Hgb improved this am without transfusion. Assessment 47y/o male admitted with pancreatitis, found to have NHL. Given Rituxan on 05.01 and developed massive PE on and went into cardiogenic shock with renal failure. Now critically ill in [facility] [place]. s/p thrombolytic therapy Plan 1. We'll possibly start Coumadin bridging tomorrow if his by mouth intake has improved 2. Wait for clinical improvement before giving chemotherapy 3. Monitor CBC Attending Statement The exam, history, and the medical decision-making described in the above note were completed with the assistance of the mid-level provider. I reviewed and agree with the findings presented. I attest that I had a [id number] encounter with the patient on the same day, and personally performed and documented my assessment and findings in the medical record.Slowly improving. Neck adenopathy stable. Still require dialysis. Will bridge to coumadin when able to po well. Plan to give him CHOP when he is more stable. Problem Qualifiers (1) Non-Hodgkin lymphoma: Tia Montenegro May 14, 2017 16:30 Ruslan Connelly MD May 14, 2017 18:36
--- NOTE | 2017-05-14 16:52 | HHI.PR ---
Subjective Remarks Off o2 sat 95. No complaints . Has arm swelling NO chest pain. No fever Objective Vital Signs Date Time Temp Pulse Resp B/P Pulse Ox O2 Delivery O2 Flow Rate FiO2 05/14/17 16:00 99.4 79 24 108/59 92 05/14/17 16:00 76 05/14/17 14:00 89 05/14/17 12:00 84 05/14/17 12:00 98.2 80 24 109/60 93 05/14/17 10:00 81 05/14/17 08:00 80 05/14/17 08:00 98.9 80 26 113/62 100 05/14/17 08:00 98.9 80 26 113/62 100 05/14/17 07:47 100 Nasal Cannula 2.00 05/14/17 06:00 83 05/14/17 04:00 99.0 83 19 121/65 96 05/14/17 04:00 83 05/14/17 02:00 80 05/14/17 00:00 99.5 80 24 117/60 97 05/14/17 00:00 80 05/13/17 22:00 81 05/13/17 20:51 96 Nasal Cannula 2.00 05/13/17 20:00 99.1 80 23 112/55 97 05/13/17 20:00 80 I/O 05/13/17 05/13/17 05/13/17 05/14/17 05/14/17 05/14/17 06:59 14:59 22:59 06:59 14:59 22:59 Intake Total 350 ml 746 ml 595 ml 349 ml 407 ml Output Total 2501 ml 0 ml 0 ml Balance 350 ml -1755 ml 595 ml 349 ml 407 ml Intake Oral 350 ml 250 ml 500 ml 240 ml 300 ml IV Total 496 ml 95 ml 109 ml 107 ml Stool Total 1 ml 0 ml 0 ml Hemodialysis 2500 ml # Voids 1 # Bowel Movements 1 0 Result Diagram: 05/14/175 05/14/17424 Objective Remarks GENERAL: This is a mid aged A/A male , well-developed patient alert . HEENT: Throat clear. CARDIOVASCULAR: Regular rate and rhythm without murmurs, gallops, or rubs. RESPIRATORY: Occ wheezes,diminished breath sounds bilaterally. GASTROINTESTINAL: Abdomen soft, non-tender,nondistended. + bowel sounds MUSCULOSKELETAL: Extremities show 2 + edema of arms. NEURO: awake and responds well.Moves all. Assessment and Plan Assessment and Plan ASSESSMENT 1. Acute kidney injury. 2. Respiratory failure. 3. Acute Pulmonary embolism. 4. Non-Hodgkin's lymphoma. 5. Anemia. 6. Hyperphosphatemia. Plan : 1. O2 2 L prn 2. Nebs tid , duoneb 3. Anticoagulation as Ordered.Add Coumadin. 4. Chest Xray BMP in am 5. IS at bedside q3h 6. PFT when out of ICU. 7. PT and OT 8. Transfer to Floor. Con Pierre MD May 14, 2017 16:52
[2017-05-14 23:01] LABS: APTT (PATIENT) 62.2 SEC (24.3-30.1)
[2017-05-15] VITALS (8 sets, daily range): BP systolic 102–118; BP diastolic 54–68; PULSE 44–88; RESP 16–18; TEMP 97–98.1; O2SAT 94–97
[2017-05-15] MEDS: ARTIFICIAL TEARS OPTH OINT 3.5 APPLIC/3.5 GM TUBO EACH EYE SCH ×3 (02:00→17:49)
--- NOTE | 2017-05-15 05:37 | RADRPT ---
EXAM DATE/TIME: 05/15/2017 04:29 [place] COMPARISON: ABDOMEN KUB ONLY, May 12, 2017, 3:36. INDICATIONS : Evaluate for ileus. MEDICAL HISTORY : Pancreatitis. SURGICAL HISTORY : None. ENCOUNTER: Subsequent ACUITY: 3 weeks PAIN SCORE: 8/10 LOCATION: Bilateral Abdomen FINDINGS: Examination of the abdomen demonstrates gaseous distention of the small bowel with air fluid levels m ost consistent with ileus .There are no findings of small bowel obstruction. No free air is identifie d. No organomegaly is evident. There has been no significant change when compared to the prior exam. CONCLUSION: Findings of mild small bowel ileus. There has been no significant change when compared to the prior e xam. Jadon Carroll MD on May 15, 2017 at 5:35 Board Certified Radiologist. This report was verified electronically.
[2017-05-15] MEDS: INSULIN NovoLIN REGULAR SUPPLEMENTAL SCALE SQ SCH ×3 (06:00→11:26)
[2017-05-15] MEDS: metroNIDAZOLE 500 MG TAB PO SCH ×3 (06:35→20:58)
[2017-05-15] MEDS: CHLORHEXIDINE 0.12% (ORAL KIT) 15 ML CUP MT SCH ×2 (08:00→20:00)
[2017-05-15] MEDS: NIFEdipine 90 MG SUSTAINED RELEASE TAB PO SCH (09:00)
[2017-05-15] MEDS: VANCOMYCIN 500 MG VIAL (FOR ORAL USE ONLY) PO SCH ×5 (09:00→20:58)
[2017-05-15 10:07] LABS: APTT (PATIENT) 33.9 SEC (24.3-30.1)
--- NOTE | 2017-05-15 10:36 | HHI.PR ---
Subjective Remarks seen in HD. resting comfortably with no distress. afebrile. denies pain. no new complaints. Objective Vitals Vital Signs Date Time Temp Pulse Resp B/P Pulse Ox O2 Delivery O2 Flow Rate FiO2 05/15/17 08:10 97.1 66 18 107/60 94 05/15/17 04:44 98.0 58 18 108/62 96 05/15/17 01:09 97.8 57 18 104/62 97 05/14/17 22:00 79 05/14/17 21:50 96 Nasal Cannula 2.00 05/14/17 20:00 99.0 77 21 113/62 98 05/14/17 20:00 77 05/14/17 18:00 79 05/14/17 16:00 99.4 79 24 108/59 92 05/14/17 16:00 76 05/14/17 14:00 89 05/14/17 12:00 84 05/14/17 12:00 98.2 80 24 109/60 93 I/O 05/14/17 05/14/17 05/14/17 05/15/17 05/15/17 05/15/17 07:00 15:00 23:00 07:00 15:00 23:00 Intake Total 349 ml 407 ml 495 ml Output Total 0 ml 0 ml 100 ml Balance 349 ml 407 ml 495 ml -100 ml Intake Oral 240 ml 300 ml 400 ml IV Total 109 ml 107 ml 95 ml Output Urine Total 100 ml Stool Total 0 ml 0 ml # Bowel Movements 0 Result Diagram: 05/14/17 0425 05/14/17 0425 Imaging Last Impressions Abdomen X-Ray 05/15/17 06 Draft Impressions: Service Date/Time: Monday, May 15, 2017 04:29 - CONCLUSION: Findings of mild small bowel ileus. There has been no significant change when compared to the prior exam. Jadon Carroll MD Chest X-Ray 05/12/17 0600 Signed Impressions: Service Date/Time: Friday, May 12, 2017 03:33 - CONCLUSION: 1. No significant change in the hazy opacity in the perihilar regions of both lung bases. 2. The right paratracheal mass is unchanged. 3. Interval extubation and removal of nasogastric tube. Goldy Suarez MD Abdomen/Pelvis CT 05/09/17 0000 Signed Impressions: Service Date/Time: Tuesday, May 09, 2017 21:16 - CONCLUSION: 1. Diffusely distended loops of small bowel down to the cecum suggest ileus. 2. Evidence of mesenteric and retroperitoneal adenopathy. 3. Large bilateral pleural effusions , moderate amount of free fluid in the pelvis and mild ascites in the upper abdomen. 4. Abnormal appearance to the parenchyma of the right kidney with patchy areas of hyperdensity in a mosaic pattern. This of uncertain significance. The patient had iodinated contrast for a CT pulmonary angiogram 7 days ago; this could potentially represent residual parenchymal contrast which would be nonspecific, but raises the possibility of either obstruction or renal infarctions. Bryon Evans MD Renal Ultrasound 05/05/17 0000 Signed Impressions: Service Date/Time: Friday, May 05, 2017 20:06 - CONCLUSION: 1. Kidneys are borderline echogenic which can be seen with medical renal disease. 2. No evidence of hydronephrosis. 3. Abdominal ascites. 4. Multiple dilated bowel loops. 5. Bilateral pleural effusions. Tray Patel MD Head CT 05/03/17 0000 Signed Impressions: Service Date/Time: Wednesday, May 03, 2017 17:22 - CONCLUSION: No acute intracranial disease. No hemorrhage seen. Tray Patel MD CT Angiography 05/02/17 0000 Signed Impressions: Service Date/Time: Tuesday, May 02, 2017 11:10 - CONCLUSION: 1. There is pulmonary embolus in the right pulmonary artery, right upper lobe and lower lobe branches. 2. Resorption of previously seen gas in the left axilla with fluid collection at this site with postprocedural change and possibly postprocedural hemorrhage not significantly changed in size. 3. Interval development of right lung airspace process may represent postobstructive pneumonia and there is mucus within the trachea not present yesterday. 4. Right pleural effusion is smaller and left pleural effusion is larger. 5. No change in bulky adenopathy. Leonor Chavez MD Upper Extremity Ultrasound 04/30/17 0000 Signed Impressions: Service Date/Time: April 12:25 - CONCLUSION: There some superficial thrombosis of a vein in the forearm. The deep venous system is patent. Large fluid collection left axilla. Significant soft tissue edema throughout the upper arm. Rinku Hillman MD Thoracentesis Ultrasound 04/30/17 0000 Signed Impressions: Service Date/Time: April 12:14 - CONCLUSION: Uncomplicated ultrasound guided thoracentesis. Tray Patel MD Port Line Insertion 04/27/17 0000 Signed Impressions: Service Date/Time: Thursday, April 27, 2017 14:56 - CONCLUSION: 1. Bulky bilateral lower cervical lymphadenopathy. 2. Uncomplicated ultrasound and fluoroscopic guided implanted central venous port catheter placement as described in detail above. An 8 [employer] port was placed. Liang Peralta MD Bone Biopsy CT 04/27/17 0000 Signed Impressions: Service Date/Time: Thursday, April 27, 2017 16:22 - CONCLUSION: 1. Uncomplicated CT guided bone marrow aspirate. 2. Uncomplicated CT guided bone marrow biopsy. Tray Patel MD Chest CT 04/25/17 0000 Signed Impressions: Service Date/Time: Wednesday, April 26, 2017 19:00 - CONCLUSION: The right pleural effusion is slightly larger on the left side has not changed. Extensive bulky adenopathy as before and malignancies such as lymphoma is suspected. Leonor Chavez MD Gall Bladder Ultrasound 04/22/17 0000 Signed Impressions: Service Date/Time: Saturday, April 22, 2017 07:35 - CONCLUSION: Small liver with focal abdomen only incompletely evaluated. Large right pleural effusion. effusion. Kirk Briceño MD FACR Abdomen CT 04/20/17 0000 Signed Impressions: Service Date/Time: Thursday, April 20, 2017 19:40 - CONCLUSION: Limited exam because of lack of intravenous contrast. Lymphoma is suspected. Pathological diagnosis could be obtained with ultrasound biopsy of the cervical, axillary or inguinal adenopathy. Kirk Briceño MD FACR Objective Remarks GENERAL:ill looking but in no acute distress CARDIOVASCULAR: Regular rate and regular rhythm without murmurs, gallops, or rubs. RESPIRATORY: Clear to auscultation. Breath sounds equal bilaterally. No wheezes , rales, or rhonchi. GASTROINTESTINAL: Abdomen soft, non-tender, nondistended. Normal, active bowel sounds MUSCULOSKELETAL: Extremities without clubbing, cyanosis, or edema. NEURO: awake and alert Procedures 04/[address] excision biopsy 04/27- port placement 05/02-TPA 05/06-left IJ Vas-Cath placement endotracheal intubation Medications and IVs Current Medications Ondansetron HCl 4 mg 4 mg ONCE ONCE IVP Last administered on 04/18/17 17:38; Start 04/18/17 at 17:30; Stop 04/18/17 at 17:31; Status DC Sodium Chloride (NS 1000 ml Inj) 1,000 ml @ 1,000 mls/hr Q1H IV Last administered on 04/18/17 17:38; Start 04/18/17 at 17:16; Stop 04/18/17 at 18:15; Status DC Sodium Chloride 2 ml 2 ml UNSCH PRN IV FLUSH FLUSH AFTER USING IV ACCESS Last administered on 04/21/17 22:27; Start 04/18/17 at 17:30 Sodium Chloride 1,000 ml @ 1,000 mls/hr Q1H IV Last administered on 04/18/17 18:40; Start 04/18/17 at 18:37; Stop 04/18/17 at 19:36; Status DC Potassium Chloride (KCl 20 Meq Premix Inj) 100 ml @ 50 mls/hr Q2H IV Last administered on 04/18/17 22:12; Start 04/18/17 at 19:00; Stop 04/18/17 at 22:59; Status DC Ondansetron HCl (Zofran Inj) 4 mg Q6H PRN IVP NAUSEA OR VOMITING Last administered on 04/26/17 06:04; Start 04/18/17 at 19:30; Stop 04/26/17 at 13:02 ; Status DC Morphine Sulfate (Morphine Inj) 2 mg Q3H PRN IV Pain 3-5; if unable to take PO ; Start 04/18/17 at 19:30; Status Cancel Morphine Sulfate (Morphine Inj) 4 mg Q3H PRN IV Pain 6-10;if unable to take PO ; Start 04/18/17 at 19:30; Status Cancel Naloxone HCl (Narcan Inj) 0.4 mg UNSCH PRN IV SEE LABEL COMMENTS; Start at 19:30 Senna/Docusate Sodium (Porsha-Colace) 1 tab BID PO Last administered on 07:52; Start 04/18/17 at 21:00; Stop 05/13/17 at 17:16; Status DC Magnesium Hydroxide (Milk Of Magnesia Liq) 30 ml Q12H PRN PO MILD - MODERATE CONSTIPATION Last administered on 05/09/17 08:01; Start 04/18/17 at 19:30; Stop 05/13/17 at 17:16; Status DC Sennosides (Senokot) 17.2 mg Q12H PRN PO MODERATE - SEVERE CONSTIPATION; Start 04/18/17 at 19:30; Stop 05/13/17 at 17:16; Status DC Bisacodyl (Dulcolax Supp) 10 mg DAILY PRN RECTAL SEVERE CONSITIPATION; Start at 19:30; Stop 05/13/17 at 17:16; Status DC Lactulose 30 ml 30 ml DAILY PRN PO SEVERE CONSITIPATION; Start 04/18/17 at 19:30 ; Stop 05/13/17 at 17:16; Status DC Potassium Chloride/Sodium Chloride 1,000 ml @ 125 mls/hr Q8H IV ; Start at 21:00; Stop 04/18/17 at 21:00; Status DC Potassium Chloride/Sodium Chloride 1,000 ml @ 83 mls/hr Q12H3M IV Last administered on 04/23/17 01:19; Start 04/19/17 at 02:00; Stop 04/23/17 at 09:04 ; Status DC Sodium Chloride (NS 1000 ml Inj) 1,000 ml @ 125 mls/hr Q8H IV Last administered on 04/18/17 20:00; Start 04/18/17 at 20:00; Stop 04/19/17 at 16:01; Status DC Pneumococcal Polyvalent Vaccine 25 mcg 25 mcg ONCE ONCE IM Last administered on 04/19/17 11:20; Start 04/19/17 at 09:00; Stop 04/19/17 at 09:01; Status DC Ceftriaxone Sodium/Sodium Chloride (Rocephin Inj/NS Inj) 100 ml @ 200 mls/hr Q24H IV Last administered on 04/24/17 12:51; Start 04/19/17 at 13:00; Stop at 14:33; Status DC Heparin Sodium (Porcine) (Heparin Inj) 5,000 units Q8HR SQ Last administered on 05/02/17 12:46; Start 04/19/17 at 14:00; Status Hold Azithromycin (Zithromax) 500 mg Q24H PO Last administered on 04/24/17 12:51; Start 04/19/17 at 13:00; Stop 04/24/17 at 14:33; Status DC Clonidine (Catapres) 0.1 mg ONCE ONCE PO Last administered on 04/20/17 22:16 ; Start 04/20/17 at 21:45; Stop 04/20/17 at 21:46; Status DC Nifedipine (Procardia Xl) 30 mg DAILY PO Last administered on 04/25/17 09:42; Start 04/21/17 at 17:00; Stop 04/25/17 at 13:12; Status DC Hydralazine HCl 10 mg 10 mg Q6HR PRN IV PUSH SBP>160, DBP>90 Last administered on 04/27/17 10:15; Start 04/21/17 at 17:00 Cefazolin Sodium/ Sodium Chloride (Ancef Inj/NS Inj) 100 ml @ 200 mls/hr TECHNICAL DATA ANALYST IV ; Start 04/21/17 at 21:30; Stop 04/24/17 at 21:29; Status DC Midazolam HCl (Versed Inj) 2 mg STK-MED ONCE .ROUTE Last administered on 09:02; Start 04/22/17 at 09:02; Stop 04/22/17 at 09:03; Status DC Bupivacaine HCl/ Epinephrine Bitart (Sensorcaine-Epi 0.5% 50 ml Inj) 50 ml STK- MED ONCE INFIL ; Start 04/22/17 at 09:25; Stop 04/22/17 at 09:26; Status Cancel Albuterol Sulfate (*ALBUTEROL NEB PERIprocedure ONLY) 2.5 mg STK-MED ONCE NEB Last administered on 04/22/17 10:06; Start 04/22/17 at 10:06; Stop 04/22/17 at 10:07; Status DC Fentanyl Citrate (fentaNYL INJ) 200 mcg STK-MED ONCE .ROUTE ; Start 04/22/17 at 10:10; Stop 04/22/17 at 10:11; Status DC Bupivacaine HCl (Marcaine Pf 0.5% Inj) 30 ml STK-MED ONCE INFIL Last administered on 04/22/17 09:25; Start 04/22/17 at 09:25; Stop 04/22/17 at 10:49 ; Status DC Miscellaneous Information ALL NURSING DEPARTME... UNSCH PRN .XX SEE LABEL COMMENTS; Start 04/22/17 at 10:01; Stop 04/23/17 at 10:00; Status DC Dextrose/Sodium Chloride 1,000 ml @ 60 mls/hr [id number] IV Last administered on 04/24/17 06:40; Start 04/23/17 at 12:45; Stop 04/24/17 at 14:36; Status DC Potassium Chloride/Dextrose/ Sodium Chloride (KCl Inj/D5W-NS 1000 ml Inj) 1,015 ml @ 70 mls/hr [id number] IV Last administered on 04/25/17 05:34; Start at 16:00; Stop 04/25/17 at 13:12; Status DC Promethazine HCl (Phenergan Inj) 25 mg ONCE ONCE IM Last administered on 11:55; Start 04/25/17 at 08:00; Stop 04/25/17 at 08:01; Status DC Nifedipine 60 mg 60 mg DAILY PO Last administered on 04/27/17 10:02; Start at 09:00; Stop 04/27/17 at 14:48; Status DC Potassium Chloride/Dextrose/ Sodium Chloride (KCl Inj/D5W-NS 1000 ml Inj) 1,015 ml @ 60 mls/hr [id number] IV Last administered on 04/27/17 18:18; Start at 15:00; Stop 04/28/17 at 11:49; Status DC Promethazine HCl (Phenergan Inj) 12.5 mg Q8H PRN IM PERSISTENT NAUSEA Last administered on 04/30/17 04:34; Start 04/26/17 at 13:15; Stop 04/30/17 at 11:28 ; Status DC Allopurinol 300 mg 300 mg DAILY PO Last administered on 05/05/17 08:12; Start 04/27/17 at 09:00; Stop 05/05/17 at 12:10; Status DC Vancomycin HCl 1000 mg/Sodium Chloride 250 ml @ 250 mls/hr TECHNICAL DATA ANALYST IV Last administered on 04/27/17 13:49; Start 04/27/17 at 10:00; Stop 04/30/17 at 09:59 ; Status DC Cefazolin Sodium/ Dextrose (Ancef 2 Gm Premix) 50 ml @ 100 mls/hr TECHNICAL DATA ANALYST IV Last administered on 04/27/17 15:42; Start 04/27/17 at 10:00; Stop 04/30/17 at 09:59; Status DC Nifedipine (Procardia Xl) 90 mg DAILY PO Last administered on 05/14/17 07:55; Start 04/28/17 at 09:00 Clonidine (Catapres) 0.1 mg Q12HR PO ; Start 04/27/17 at 21:00; Status UNV Clonidine (Catapres) 0.1 mg Q6H PRN PO SBP>160, DBP>90 Last administered on 08:07; Start 04/27/17 at 15:00 Heparin Sodium (Porcine) (*HEPARIN CENTRAL FLUSH PERIprocedural ONLY) 500 units STK-MED ONCE IV FLUSH Last administered on 04/27/17 14:51; Start 04/27/17 at 14:51; Stop 04/27/17 at 14:52; Status DC Lidocaine/ Epinephrine (Xylocaine-Epi 1%-1:100,000 Inj) 20 ml STK-MED ONCE .ROUTE Last administered on 04/27/17 14:51; Start 04/27/17 at 14:51; Stop at 14:52; Status DC Midazolam HCl (Versed Inj) 5 mg STK-MED ONCE .ROUTE Last administered on 14:52; Start 04/27/17 at 14:52; Stop 04/27/17 at 14:53; Status DC Fentanyl Citrate 250 mcg 250 mcg STK-MED ONCE .ROUTE Last administered on 14:53; Start 04/27/17 at 14:53; Stop 04/27/17 at 14:54; Status DC Sodium Chloride (NS 1000 ml Inj) 1,000 ml @ 100 mls/hr Q10H IV Last administered on 04/29/17 17:55; Start 04/29/17 at 15:00; Stop 04/30/17 at 00:59 ; Status DC Acetaminophen (Tylenol) 650 mg ONCE ONCE PO Last administered on 04/30/17 16: 44; Start 04/30/17 at 13:00; Stop 04/30/17 at 13:01; Status DC Diphenhydramine HCl 50 mg 50 mg ONCE ONCE PO Last administered on 04/30/17 16 :43; Start 04/30/17 at 13:00; Stop 04/30/17 at 13:01; Status DC Rituximab/Sodium Chloride (Rituxan Inj/NS 500 ml Inj) 571.625 ml @ 0 mls/hr ONCE ONCE IV Last administered on 05/01/17 13:15; Start 04/30/17 at 14:00; Stop 04/30/17 at 14:01; Status DC Prednisone 115 mg 115 mg Q12H PO ; Start 04/30/17 at 13:00; Stop 05/01/17 at 11: 21; Status DC Dexamethasone Sodium Phosphate 20 mg/Granisetron HCl 1 mg/Sodium Chloride 56 ml @ 224 mls/hr Q24H IV ; Start 04/30/17 at 15:00; Stop 05/01/17 at 11:26; Status DC Potassium Chloride 100 ml @ 50 mls/hr BOLUS ONCE IV Last administered on 04/30 10:20; Start 04/30/17 at 10:00; Stop 04/30/17 at 11:59; Status DC Etoposide 95.5 mg/ Doxorubicin HCl 19.1 mg/ Vincristine Sulfate 0.764 mg/ Sodium Chloride 515.089 ml @ 21.462 mls/hr Q24H IV ; Start 04/30/17 at 15:00; Stop 05/04/17 at 14:59; Status Hold Cyclophosphamide/ Sodium Chloride (Cytoxan Inj/NS 500 ml Inj) 500 ml @ 500 mls/ hr ONCE ONCE IV ; Start 05/04/17 at 14:00; Stop 05/04/17 at 14:59; Status DC Ondansetron HCl (Zofran Inj) 4 mg Q6HR PRN IV PUSH NAUSEA OR VOMITING Last administered on 05/07/17 10:06; Start 04/30/17 at 11:30 Promethazine HCl (Phenergan Inj) 25 mg Q6H PRN IM NAUSEA OR VOMITING Last administered on 05/01/17 13:27; Start 04/30/17 at 11:30 Acetaminophen/ Hydrocodone Bitart ([place] 5-325 Mg) 1 tab Q6H PRN PO PAIN SCALE 1 TO 10 Last administered on 05/12/17 02:48; Start 04/30/17 at 11:30 Albuterol/ Ipratropium (Duoneb Neb) 1 ampule ONCE ONCE NEB Last administered on 04/30/17 20:16; Start 04/30/17 at 19:45; Stop 04/30/17 at 20:11; Status DC Albuterol/ Ipratropium (Duoneb Neb) 1 ampule Q2HR NEB PRN NEB sob, wheeze; Start 04/30/17 at 20:45; Stop 05/02/17 at 10:14; Status DC Morphine Sulfate (Morphine Inj) 2 mg ONCE ONCE IV PUSH Last administered on 23:36; Start 04/30/17 at 23:30; Stop 04/30/17 at 23:31; Status DC Furosemide (Lasix Inj) 10 mg ONCE ONCE IV PUSH Last administered on 05/01/17 01:01; Start 05/01/17 at 00:00; Stop 05/01/17 at 00:01; Status DC Furosemide (Lasix Inj) 20 mg ONCE ONCE IV PUSH Last administered on 05/01/17 09:09; Start 05/01/17 at 07:45; Stop 05/01/17 at 07:52; Status DC Acetaminophen (Tylenol) 650 mg NOW ONCE PO Last administered on 05/01/17 10: 51; Start 05/01/17 at 10:45; Stop 05/01/17 at 10:46; Status DC Diphenhydramine HCl 50 mg 50 mg NOW ONCE PO Last administered on 05/01/17 10: 51; Start 05/01/17 at 10:45; Stop 05/01/17 at 10:46; Status DC Rituximab/Sodium Chloride (Rituxan Inj/NS 500 ml Inj) 571.625 ml @ 0 mls/hr ONCE ONCE IV ; Start 05/01/17 at 12:00; Stop 05/01/17 at 12:01; Status DC Acetaminophen (Tylenol) 650 mg ONCE ONCE PO ; Start 05/01/17 at 11:30; Stop at 11:31; Status DC Diphenhydramine HCl (Benadryl) 50 mg ONCE ONCE PO ; Start 05/01/17 at 11:30; Stop 05/01/17 at 11:31; Status DC Prednisone 115 mg 115 mg Q12HR PO Last administered on 05/02/17 20:08; Start 05/01/17 at 11:00; Stop 05/05/17 at 21:01; Status DC Dexamethasone Sodium Phosphate/ Granisetron HCl/ Sodium Chloride (Decadron Inj/ Kytril Inj/NS Inj) 56 ml @ 224 mls/hr Q24H IV ; Start 05/01/17 at 11:30; Stop 05/06/17 at 11:44; Status DC Metoclopramide HCl (Reglan Inj) 10 mg Q8HR IV PUSH Last administered on 04:59; Start 05/01/17 at 15:30; Stop 05/09/17 at 19:03; Status DC Pantoprazole Sodium (Protonix) 40 mg DAILY PO Last administered on 05/06/17 08 :17; Start 05/01/17 at 16:00; Stop 05/07/17 at 11:49; Status DC Furosemide (Lasix Inj) 20 mg ONCE ONCE IV PUSH Last administered on 05/01/17 16:14; Start 05/01/17 at 15:30; Stop 05/01/17 at 15:31; Status DC Albuterol/ Ipratropium (Duoneb Neb) 1 ampule BID NEB INH Last administered on 05/02/17 07:47; Start 05/01/17 at 20:00; Stop 05/02/17 at 10:18; Status DC Furosemide (Lasix Inj) 20 mg STAT ONCE IV PUSH Last administered on 05/02/17 08:40; Start 05/02/17 at 08:30; Stop 05/02/17 at 08:37; Status DC Etomidate (Amidate Inj) 20 mg STK-MED ONCE .ROUTE Last administered on 12:48; Start 05/02/17 at 09:23; Stop 05/02/17 at 09:24; Status DC Dextrose (D50w (Vial) Inj) 25 ml UNSCH PRN IV PUSH HYPOGLYCEMIA-SEE COMMENTS; Start 05/02/17 at 10:00 Insulin Human Regular (NovoLIN R SUPPLEMENTAL SCALE) 1 Q6HR SQ Last administered on 05/04/17t 18:00; Start 05/02/17 at 12:00 Chlorhexidine Gluconate (Peridex 0.12% Liq) 15 ml BID@08,20 MT Last administered on 05/10/17 07:52; Start 05/02/17 at 20:00 Magnesium Oxide 800 mg 800 mg UNSCH PRN PO For Magnesium 1.2 - 1.6 mg/dL; Start 05/02/17 at 10:00; Stop 05/03/17 at 13:51; Status DC Magnesium Sulfate 4 gm/Sodium Chloride 100 ml @ 50 mls/hr UNSCH PRN IV For Magnesium 0.9 - 1.1 mg/dL; Start 05/02/17 at 10:00; Stop 05/03/17 at 13:51; Status DC Magnesium Sulfate 2 gm/Sodium Chloride 100 ml @ 50 mls/hr UNSCH PRN IV For Magnesium 1.2 - 1.6 mg/dL; Start 05/02/17 at 10:00; Stop 05/03/17 at 13:51; Status DC Potassium Chloride 100 ml @ 50 mls/hr Q2H PRN IV For Potassium 2.8 - 3.2 mEq/L ; Start 05/02/17 at 10:00; Stop 05/03/17 at 13:51; Status DC Potassium Chloride 100 ml @ 50 mls/hr Q2H PRN IV For Potassium 3.3 - 3.5 mEq/L ; Start 05/02/17 at 10:00; Stop 05/03/17 at 13:51; Status DC Potassium Chloride 100 ml @ 50 mls/hr Q2H PRN IV For Potassium 2.8 - 3.2 mEq/L ; Start 05/02/17 at 10:00; Stop 05/03/17 at 13:51; Status DC Potassium Chloride (KCl 40 Meq Premix Inj) 100 ml @ 25 mls/hr UNSCH PRN IV For Potassium 3.3 - 3.5 mEq/L; Start 05/02/17 at 10:00; Stop 05/03/17 at 13:51; Status DC Potassium Phosphate (K-Phos) 2,000 mg Q4H PRN PO For Phosphorus < 2.5 mg/dL; Start 05/02/17 at 10:00; Stop 05/03/17 at 13:51; Status DC Potassium Phosphate 2000 mg 2,000 mg UNSCH PRN PO/TUBE SEE LABEL COMMENTS; Start 05/02/17 at 10:00; Stop 05/03/17 at 13:51; Status DC Potassium Phosphate 30 mmol/ Sodium Chloride 260 ml @ 42 mls/hr UNSCH PRN IV SEE LABEL COMMENTS; Start 05/02/17 at 10:00; Stop 05/03/17 at 13:52; Status DC Sodium Phosphate/ Sodium Chloride (Sodium Phosphate Inj/NS 250 ml Inj) 250 ml @ 42 mls/hr UNSCH PRN IV For Phosphorus < 2.5 mg/dL; Start 05/02/17 at 10:00; Stop 05/03/17 at 13:52; Status DC Albuterol/ Ipratropium (Duoneb Neb) 1 ampule Q6HR NEB INH Last administered on 05/06/17 03:23; Start 05/02/17 at 10:00; Stop 05/06/17 at 10:00; Status DC Albuterol/ Ipratropium 1 ampule 1 ampule Q2HR NEB PRN INH WHEEZING Last administered on 05/08/17 08:08; Start 05/02/17 at 10:00 Fentanyl Citrate 250 ml @ 0 mls/hr TITRATE IV Last administered on 05/10/17 05 :36; Start 05/02/17 at 10:00 Propofol (Diprivan 1000 Mg/100ml Inj) 100 ml @ 0 mls/hr TITRATE IV Last administered on 05/10/17 06:54; Start 05/02/17 at 10:00 Iohexol 75 ml 75 ml STK-MED ONCE IV Last administered on 05/02/17 11:31; Start 05/02/17 at 11:31; Stop 05/02/17 at 11:32; Status DC Cefepime HCl 2000 mg/Sodium Chloride 100 ml @ 200 mls/hr Q12H IV Last administered on 05/05/17 02:43; Start 05/02/17 at 15:00; Stop 05/05/17 at 11:53 ; Status DC Vancomycin HCl/ Sodium Chloride (Vancomycin Inj/ NS 250 ml Inj) 250 ml @ 250 mls/hr ONCE ONCE IV Last administered on 05/02/17 16:14; Start 05/02/17 at 15 :00; Stop 05/02/17 at 15:59; Status DC Heparin Sodium (Porcine) (Heparin Inj) 5,000 units ONCE ONCE IV Last administered on 05/02/17 15:35; Start 05/02/17 at 16:00; Stop 05/02/17 at 16:01 ; Status DC Miscellaneous Information Patient in critical care unit? Ass... [id number] .XX Last administered on 05/02/17 17:30; Start 05/02/17 at 17:15 Chlorhexidine Gluconate (Chlorhexidine 2% Cloth) 3 pack DAILY@04 TOPICAL Last administered on 05/07/17 03:45; Start 05/03/17 at 04:00; Stop 05/07/17 at 04:01 ; Status DC Chlorhexidine Gluconate 3 pack 3 pack UNSCH PRN TOPICAL HYGIENIC CARE; Start at 17:15; Stop 05/07/17 at 17:08; Status DC Alteplase, Recombinant/ Syringe / Bag (Activase Drip/ Syringe/Bag) 49.9999 ml @ 50 mls/hr ONCE ONCE IV Last administered on 05/02/17 19:58; Start 05/02/17 at 19:15; Stop 05/02/17 at 20:14; Status DC Sodium Chloride (NS Inj) 30 ml ONCE ONCE IVF Last administered on 05/02/17 19 :15; Start 05/02/17 at 19:15; Stop 05/02/17 at 19:28; Status DC Miscellaneous Medication Thrombolysis plan for submass... ONCE ONCE OTHER Last administered on 05/02/17 19:15; Start 05/02/17 at 19:15; Stop 05/02/17 at 19:28; Status DC Heparin Sodium/ Dextrose 250 ml @ 0 mls/hr TITRATE IV Last administered on 09:24; Start 05/03/17 at 02:00 Epinephrine HCl/ Dextrose (Adrenalin (1:1000) Inj/D5W Inj) 250 ml @ 30 mls/hr TITRATE IV Last administered on 05/04/17 09:43; Start 05/03/17 at 10:15; Stop 05/07/17 at 16:44; Status DC Calcium Acetate 2668 mg 2,668 mg TID PO Last administered on 05/14/17 13:24; Start 05/03/17 at 09:00 Epoprostenol Sodium/Sodium Chloride (Flolan (30,000 Ng/ml) Neb/NS Inj) 100 ml @ 8 mls/hr Q8H NEB Last administered on 05/04/17 00:17; Start 05/03/17 at 09:00 ; Stop 05/04/17 at 14:14; Status DC Lidocaine HCl 50 ml 50 ml STK-MED ONCE .ROUTE ; Start 05/03/17 at 12:21; Stop at 12:22; Status DC Epoprostenol Sodium 40 ml/ Sodium Chloride 100 ml @ 8 mls/hr Q8H NEB Last administered on 05/06/17 06:04; Start 05/04/17 at 15:00; Stop 05/06/17 at 12:43 ; Status DC Calcium Gluconate 2 gm/Dextrose 120 ml @ 120 mls/hr ONCE ONCE IV Last administered on 05/04/17 20:00; Start 05/04/17 at 20:00; Stop 05/04/17 at 20:59 ; Status DC Cefepime HCl/ Sodium Chloride (Maxipime Inj/NS Inj) 100 ml @ 200 mls/hr Q24H IV Last administered on 05/08/17 01:36; Start 05/06/17 at 03:00; Stop at 23:00; Status DC Allopurinol (Zyloprim) 200 mg DAILY PO Last administered on 05/14/17 07:55; Start 05/06/17 at 09:00 Artificial Tears (Tears Naturale Opth Soln) 1 drop Q8H EACH EYE Last administered on 05/07/17 10:06; Start 05/05/17 at 18:00; Stop 05/07/17 at 12:11 ; Status DC Fentanyl Citrate (fentaNYL INJ) 100 mcg STK-MED ONCE IV ; Start 04/22/17 at 12: 00; Stop 05/06/17 at 12:46; Status DC Propofol (Diprivan 200 Mg/20 ml Inj) 200 mg STK-MED ONCE IV ; Start 04/22/17 at 12:00; Stop 05/06/17 at 12:46; Status DC Phenylephrine HCl (Neosynephrine/ NS 1000 Mcg/10ml Syr) 1,000 mcg STK-MED ONCE IV ; Start 04/22/17 at 12:00; Stop 05/06/17 at 12:47; Status DC Ondansetron HCl (Zofran Inj) 4 mg STK-MED ONCE IV PUSH ; Start 04/22/17 at 12:00 ; Stop 05/06/17 at 12:47; Status DC Pantoprazole Sodium (Protonix Inj) 40 mg DAILY IV PUSH Last administered on 05/14 07:54; Start 05/07/17 at 12:00 Artificial Tears 1 applic 1 applic Q8H EACH EYE Last administered on 05/14/17 18:00; Start 05/07/17 at 18:00 Sodium Chloride (NS 1000 ml Inj) 1,000 ml @ 0 mls/hr TITRATE PRN IV WITH DIALYSIS Last administered on 05/11/17 18:29; Start 05/07/17 at 18:00 Heparin Sodium (Porcine) 8000 units 8,000 units UNSCH PRN IV FLUSH WITH DIALYSIS; Start 05/07/17 at 18:00 Sodium Chloride 1,000 ml @ 200 mls/hr Q5H PRN IV WITH DIALYSIS; Start 05/07/17 at 18:00 Sodium Chloride (NS 250 ml Inj) 200 ml @ 0 mls/hr UNSCH PRN IV WITH DIALYSIS; Start 05/07/17 at 18:00 Mannitol (Mannitol Inj) 12.5 gm UNSCH PRN IV WITH DIALYSIS; Start 05/07/17 at 18:00 Albumin Human (Albumin 25% Inj) 25 gm UNSCH PRN IV WITH DIALYSIS; Start at 18:00 Sodium Chloride (NS Flush) 5 ml UNSCH PRN IV FLUSH WITH DIALYSIS; Start at 18:00 Heparin Sodium (Porcine) (Heparin Inj) Dwell Heparin to f... UNSCH PRN OTHER WITH DIALYSIS Last administered on 05/11/17 18:30; Start 05/07/17 at 18:00 Gentamicin Sulfate (Gentamicin (Dialysis) Inj) 10 mg UNSCH PRN OTHER WITH DIALYSIS Last administered on 05/11/17 18:29; Start 05/07/17 at 18:00 Gelatin (Gelfoam 12 Mm/7 Mm Top) 1 foam UNSCH PRN TOPICAL WITH DIALYSIS; Start 05/07/17 at 18:00 Ondansetron HCl (Zofran Inj) 4 mg UNSCH PRN IV NAUSEA OR VOMITING; Start at 18:00 Acetaminophen (Tylenol) 650 mg UNSCH X1 PRN PO WITH DIALYSIS Last administered on 05/08/17 10:07; Start 05/07/17 at 18:00; Stop 05/14/17 at 17:59; Status DC Diphenhydramine HCl (Benadryl) 25 mg UNSCH PRN PO WITH DIALYSIS; Start at 18:00 Nitroglycerin (Nitrostat Sl) 0.4 mg UNSCH PRN SL WITH DIALYSIS; Start 05/07/17 at 18:00 Clonidine (Catapres) 0.1 mg UNSCH PRN PO WITH DIALYSIS; Start 05/07/17 at 18:00 Polyethylene Glycol (Miralax) 17 gm DAILY PO Last administered on 05/10/17 07: 52; Start 05/08/17 at 09:00; Stop 05/13/17 at 17:16; Status DC Lactulose (Lactulose Liq) 30 ml BID PO Last administered on 05/10/17 07:51; Start 05/08/17 at 09:00; Stop 05/13/17 at 17:16; Status DC Bisacodyl (Dulcolax Supp) 10 mg DAILY PRN RECTAL CONSTIPATION; Start 05/08/17 at 08:15; Stop 05/08/17 at 08:16; Status DC Diatrizoate Meglum/ Diatrizoate Sod ( Gastroview Liq) 18 ml ONCE ONCE PO Last administered on 05/09/17 16:42; Start 05/09/17 at 14:15; Stop 05/09/17 at 14:16; Status DC Heparin Sodium (Porcine) 300 units 300 units NOW ONCE IV ; Start 05/09/17 at 18 :30; Stop 05/09/17 at 18:31; Status DC Potassium Chloride (KCl 20 Meq Premix Inj) 100 ml @ 50 mls/hr BOLUS ONCE IV Last administered on 05/10/17 13:31; Start 05/10/17 at 12:30; Stop 05/10/17 at 14:29; Status DC Sucralfate 1 gm 1 gm Q8HR PO Last administered on 05/13/17 04:46; Start at 14:00; Stop 05/13/17 at 13:59; Status DC Potassium Chloride (KCl 20 Meq Premix Inj) 100 ml @ 50 mls/hr ONCE ONCE IV Last administered on 05/11/17 08:54; Start 05/11/17 at 08:30; Stop 05/11/17 at 10:29; Status DC Metronidazole (Flagyl) 500 mg Q8HR PO Last administered on 05/15/17 06:35; Start 05/11/17 at 14:00 Morphine Sulfate 4 mg 4 mg NOW ONCE IV PUSH Last administered on 05/12/17 09: 58; Start 05/12/17 at 09:45; Stop 05/12/17 at 09:46; Status DC Potassium Chloride (KCl 40 Meq Premix Inj) 100 ml @ 25 mls/hr ONCE ONCE IV Last administered on 05/12/17 13:51; Start 05/12/17 at 13:45; Stop 05/12/17 at 17: 44; Status DC Vancomycin HCl (VANCOMYCIN for oral use only) 500 mg QID PO Last administered on 05/14/17 21:47; Start 05/13/17 at 13:00 Dronabinol (Marinol) 5 mg BID@11,16 PO Last administered on 05/14/17 16:07; Start 05/14/17 at 16:00 A/P Assessment and Plan A/P Acute Hypoxic Respiratory Failure-resolved Acute Submassive Pulmonary Embolism Bilateral pleural effusions, large, acute --continue nebs Acute Submassive Pulmonary Embolism Right Heart Dysfunction Global severe left ventricular systolic dysfunction Cardiogenic Shock -- high risk for sudden cardiac s/p acute PE -- 2d echo 05/02: EF 30-35%, RV dysfunction with dilation --Repeat ECHO limited study scheduled on 05/09-RV function appears to have normalized, question of interatrial shunt for which cardiology consulted-d/w Dr. Taveras, recommended that once off anticoagulation, would need to be on ASA and require f/u echo periodically for evaluation. Acute Kidney Injury Hypokalemia -- likely secondary to cardiogenic shock - Nephrology following, Dr. Haley --Left IJ vas catheter, on hemodialysis --Hemodialysis per nephrology -replace potassium cautiously in light of kidney failure Hyperphosphatemia Hyperkalemia Hypocalcemia Acute protein calorie malnutrition- severe Ileus -started on diet --General surgery and GI following. -Expanded bowel regimen MiraLAX, lactulose, due to site suppository Acute Large Cell B-cell lymphoma Pulmonary Embolism C. difficile colitis -- hematology/oncology following Dr. Connelly-tentative plan to resume CHOP therapy once medically improved. -- chemo on hold secondary to his acute life-threatening illnesses. Retreader to decide regarding initiation of chemotherapy for lymphoma. -- continue heparin drip,Maintain goal PTT 60 - 80. transition to Coumadin soon- per hematology. continue Flagyl and Vanco- ID following. Hyperglycemia of Critical Illness-resolved and stable. -- will dc accu-checks. Msk: --PT evaluation and treat --Multi-Podus boots --PT daily functional maintenance Prophylaxis: DVT: SCDs, heparin drip GI: protonix Catalina Eller MD May 15, 2017 10:36
--- NOTE | 2017-05-15 10:41 | HHI.NPPN ---
Subjective History of Present Illness 47-year-old male with no known past medical history who came to the hospital with complaint of nausea, vomiting and abdominal pain on April 18. I was called to see the patient because of elevated BUN and creatinine. The patient had a creatinine of 1.3 on presentation which improved to 0.7 and 0.8, then started increasing for last few days. Additional Remarks Patient is awake, now on HD, still not eating well, not in distress. Objective Data Data 05/14/17 05/15/17 18:59 06:59 Intake Total 407 ml 495 ml Output Total 0 ml 100 ml Balance 407 ml 395 ml Intake Oral 300 ml 400 ml IV Total 107 ml 95 ml Output Urine Total 100 ml Stool Total 0 ml # Bowel Movements 0 Vital Signs Date Time Temp Pulse Resp B/P Pulse Ox O2 Delivery O2 Flow Rate FiO2 05/15/17 08:10 97.1 66 18 107/60 94 05/15/17 04:44 98.0 58 18 108/62 96 05/15/17 01:09 97.8 57 18 104/62 97 05/14/17 22:00 79 05/14/17 21:50 96 Nasal Cannula 2.00 05/14/17 20:00 99.0 77 21 113/62 98 05/14/17 20:00 77 05/14/17 18:00 79 05/14/17 16:00 99.4 79 24 108/59 92 05/14/17 16:00 76 05/14/17 14:00 89 05/14/17 12:00 84 05/14/17 12:00 98.2 80 24 109/60 93 -: 05/14/17 0425 05/14/17 0425 Physical Exam General Appearance: Anxious, Malnourished Eyes Eye Exam: Pupils Equal Throat Throat Exam: Oral Mucosa [place] & Moist Pulmonary Resp Exam: Crackles, Rhonchi, Decreased Bases, Diminished Breath Sounds, Poor Inspiratory Effort Cardiology CV Exam: Regular, Normal Sinus Rhythm Gastrointestinal/Abdomen GI Exam: Soft, Non-Tender, Bowel Sounds Present, Distended Extremeties Extremities Exam: Trace Edema Neurologic Neuro Exam: Awake Assessment/Plan Assessment Summary: ALDO/Acute Renal Failure Problem List: (1) Non-Hodgkin lymphoma (2) Adenopathy (3) Pleural effusion (4) Shortness of breath (5) Pulmonary emboli (6) Acute pancreatitis (7) ALDO (acute kidney injury) Plan Patient has minimal urine out put. Urine Na. was low, and Eosinophils negative. Urine out put is minimal. Now has C. Difficile colitis. Continue antibiotics. HD now, remove fluid as tolerated. Vascath has poor flow, will get replaced. K was low yesterday, check in AM. Encourage oral intake. Problem Qualifiers (1) Non-Hodgkin lymphoma: (2) Acute pancreatitis: Qualified Code: K85.20 - Alcohol-induced acute pancreatitis, unspecified complication status Leonid Haley MD May 15, 2017 10:41
[2017-05-15] MEDS: HEPARIN SODIUM - IV 10,000 UNITS/10 ML VIAL OTHER PRN (10:50)
[2017-05-15] MEDS: GENTAMICIN SULFATE (DIALYSIS USE ONLY) 20 MG/2 ML VIAL OTHER PRN (10:51)
[2017-05-15] MEDS: DRONABINOL 5 MG CAP PO SCH ×2 (11:34→17:49)
[2017-05-15] MEDS: CALCIUM ACETATE 667 MG CAP PO SCH ×3 (11:34→17:49)
[2017-05-15] MEDS: ALLOPURINOL 100 MG TAB PO SCH (11:34)
[2017-05-15] MEDS: PANTOPRAZOLE SODIUM 40 MG VIAL IV PUSH SCH (11:34)
[2017-05-15] MEDS: HEPARIN-D5W 25,000 U/250 ML 250 ML IV SCH (11:39)
[2017-05-15 14:30] LABS: AUTOMATED NEUTROPHIL # 5.4 TH/MM3 (1.8-7.7); BASOPHIL % 0.5 % (0.0-2.0); EOSINOPHIL % 0.5 % (0.0-4.0); HEMATOCRIT 25.7 % (39.0-51.0); HEMO FLAGS DIFF FINAL; LYMPHOCYTE # 0.5 TH/MM3 (1.0-4.8); MEAN CELL VOLUME 84.2 FL (80.0-100.0); MEAN CORPUSCULAR HEMOGLOBIN 29.1 PG (27.0-34.0); MEAN CORPUSCULAR HGB CONC 34.6 % (32.0-36.0); PLATELET COUNT 355 TH/MM3 (150-450); RED BLOOD COUNT 3.05 MIL/MM3 (4.50-5.90); RED CELL DISTRIBUTION WIDTH 16.4 % (11.6-17.2); WHITE BLOOD COUNT 6.3 TH/MM3 (4.0-11.0)
--- NOTE | 2017-05-15 14:34 | PD.ONC.PN ---
Subjective Subjective Remarks Afebrile overnight. Had dialysis this morning. Now very tired. would like to wait until tomorrow to get chemotherapy. Objective Data Date Time Temp Pulse Resp B/P Pulse Ox O2 Delivery O2 Flow Rate FiO2 05/15/17 12:00 97.4 44 18 102/56 94 05/15/17 08:10 97.1 66 18 107/60 94 05/15/17 04:44 98.0 58 18 108/62 96 05/15/17 01:09 97.8 57 18 104/62 97 05/14/17 22:00 79 05/14/17 21:50 96 Nasal Cannula 2.00 05/14/17 20:00 99.0 77 21 113/62 98 05/14/17 20:00 77 05/14/17 18:00 79 05/14/17 16:00 99.4 79 24 108/59 92 05/14/17 16:00 76 05/15/17 05/15/17 05/15/17 07:00 15:00 23:00 Output Total 100 ml 1500 ml Balance -100 ml -1500 ml Result Diagram: 05/14/17 0425 05/14/17 0425 Laboratory Results Laboratory Tests Test 05/14/17 05/15/17 21:58 07:45 Activated Partial 62.2 SEC 33.9 SEC Thromboplast Time Imaging Studies Last 24 hours Impressions Abdomen X-Ray 05/15/17 0600 Draft Impressions: Service Date/Time: Monday, May 15, 2017 04:29 - CONCLUSION: Findings of mild small bowel ileus. There has been no significant change when compared to the prior exam. Jadon Carroll MD Administered Medications Medications (Trade) Dose Ordered Sig/Shyla Route PRN Reason Start Time Stop Time Status Last Admin Dose Admin Sodium Chloride (NS Flush) 2 ml UNSCH PRN IV FLUSH FLUSH AFTER USING IV ACCESS 04/18/17 17:30 04/21/17 22:27 Heparin Sodium (Porcine) (Heparin Inj) 5,000 units Q8HR SQ 04/19/17 14:00 Hold 05/02/17 12:46 Hydralazine HCl (Apresoline Inj) 10 mg Q6HR PRN IV PUSH SBP>160, DBP>90 04/21/17 17:00 04/27/17 10:15 Nifedipine (Procardia Xl) 90 mg DAILY PO 04/28/17 09:00 05/15/17 09:00 Clonidine (Catapres) 0.1 mg Q6H PRN PO SBP>160, DBP>90 04/27/17 15:00 04/29/17 08:07 Ondansetron HCl (Zofran Inj) 4 mg Q6HR PRN IV PUSH NAUSEA OR VOMITING 04/30/17 11:30 05/07/17 10:06 Promethazine HCl (Phenergan Inj) 25 mg Q6H PRN IM NAUSEA OR VOMITING 04/30/17 11:30 05/01/17 13:27 Acetaminophen/ Hydrocodone Bitart ([place] 5-325 Mg) 1 tab Q6H PRN PO PAIN SCALE 1 TO 10 04/30/17 11:30 05/12/17 02:48 Insulin Human Regular (NovoLIN R SUPPLEMENTAL SCALE) 1 Q6HR SQ 05/02/17 12:00 05/04/17 18:00 Chlorhexidine Gluconate 15 ml 15 ml BID@08,20 MT 05/02/17 20:00 05/15/17 08:00 Fentanyl Citrate 250 ml @ 0 mls/hr TITRATE IV 05/02/17 10:00 05/10/17 05:36 Propofol (Diprivan 1000 Mg/100ml Inj) 100 ml @ 0 mls/hr TITRATE IV 05/02/17 10:00 05/10/17 06:54 Miscellaneous Information Patient in critical care unit? Ass... Q361D .XX 05/02/17 17:15 05/02/17 17:30 Heparin Sodium/ Dextrose (Heparin-D5W Inj) 250 ml @ 0 mls/hr TITRATE IV 05/03/17 02:00 05/15/17 11:39 Calcium Acetate (Phoslo) 2,668 mg TID PO 05/03/17 09:00 05/15/17 11:34 Allopurinol (Zyloprim) 200 mg DAILY PO 05/06/17 09:00 05/15/17 11:34 Pantoprazole Sodium (Protonix Inj) 40 mg DAILY IV PUSH 05/07/17 12:00 05/15/17 11:34 Artificial Tears 1 applic 1 applic Q8H EACH EYE 05/07/17 18:00 05/14/17 18:00 Sodium Chloride (NS 1000 ml Inj) 1,000 ml @ 0 mls/hr TITRATE PRN IV WITH DIALYSIS 05/07/17 18:00 05/11/17 18:29 Heparin Sodium (Porcine) (Heparin Inj) Dwell Heparin to f... UNSCH PRN OTHER WITH DIALYSIS 05/07/17 18:00 05/15/17 10:50 Gentamicin Sulfate (Gentamicin (Dialysis) Inj) 10 mg UNSCH PRN OTHER WITH DIALYSIS 05/07/17 18:00 05/15/17 10:51 Metronidazole (Flagyl) 500 mg Q8HR PO 05/11/17 14:00 05/15/17 06:35 Vancomycin HCl (VANCOMYCIN for oral use only) 500 mg QID PO 05/13/17 13:00 05/15/17 11:34 Dronabinol (Marinol) 5 mg BID@11,16 PO 05/14/17 16:00 05/15/17 11:34 Objective Remarks GENERAL: Middle aged male upright in bed in nad. On 2L O2 via NC SKIN: Warm and dry. HEAD: Normocephalic. EYES: No injection or drainage. NECK: Supple, trachea midline. CARDIOVASCULAR: Regular rate and rhythm RESPIRATORY: Breath sounds equal bilaterally. No accessory muscle use. GASTROINTESTINAL: Abdomen soft, non-tender, nondistended. EXTREMITIES: No cyanosis, or edema. NEUROLOGICAL: No obvious focal deficit. Awake, alert, and oriented x3. Assessment/Plan Problem List: (1) Non-Hodgkin lymphoma Status: Acute Plan: --Has aggressive triple hit lymphoma. --Received Rituxan x1. --Neck adenopathy relatively stable. --plan to give CHOP chemotherapy (2) Pulmonary emboli Status: Acute Plan: --on heparin gtt-->will bridge to coumadin once tolerating meals --CTA showed large PE --s/p tpa therapy on 05.02. now on heparin gtt. (3) ALDO (acute kidney injury) Status: Acute Plan: Renal function has not recovered. Remains on HD. Minimal urine output. (4) Normocytic anemia Status: Acute Plan: --multifactorial due to chronic disease, renal failure --monitor and transfuse as needed Assessment 47y/o male admitted with pancreatitis, found to have NHL. Given Rituxan on 05.01 and developed massive PE on 7.21/22 and went into cardiogenic shock with renal failure. Now critically ill in [facility] [place] s/p thrombolytic therapy Plan 1. continue heparin gtt 2. plan to start CHOP chemotherapy soon. Attending Statement The exam, history, and the medical decision-making described in the above note were completed with the assistance of the mid-level provider. I reviewed and agree with the findings presented. I attest that I had a [id number] encounter with the patient on the same day, and personally performed and documented my assessment and findings in the medical record. Appear stronger. Still require dialysis. +bowel sound and diarrhea improved. Plan to give CHOP and dose reduction of Cytoxan. Patient is tired today and will reassess tomorrow for chemo. Problem Qualifiers (1) Non-Hodgkin lymphoma: Brenda Platt May 15, 2017 14:33 Ruslan Connelly MD May 15, 2017 17:08
[2017-05-15 14:39] LABS: APTT (PATIENT) 55.5 SEC (24.3-30.1)
[2017-05-15 15:16] LABS: ALKALINE PHOSPHATASE 119 U/L (45-117); ALT (GPT) 8 U/L (12-78); ANION GAP 13 MEQ/L (5-15); AST (GOT) 12 U/L (15-37); BICARBONATE 27.3 MEQ/L (21.0-32.0); BLOOD UREA NITROGEN 28 MG/DL (7-18); CHLORIDE 94 MEQ/L (98-107); GLOMERULAR FILTRATION RATE 12 ML/MIN (>89); LDH SERUM 347 U/L (87-241); SODIUM (NA) 134 MEQ/L (136-145); TOTAL BILIRUBIN ADULT 0.8 MG/DL (0.2-1.0); URIC ACID 4.7 MG/DL (2.6-7.2)
[2017-05-15 15:19] LABS: POTASSIUM 2.8 MEQ/L (3.5-5.1)
[2017-05-15] MEDS ORDERED: HEPARIN SODIUM - IV 2,000 UNITS/2 ML VIAL IV FLUSH PRN (16:00)
[2017-05-15] MEDS ORDERED: SODIUM CHLORIDE 0.9% FLUSH 10 ML FLUSH IVF PRN (16:00)
--- NOTE | 2017-05-15 16:00 | PD.RAD ---
Post Procedure Progress Note Pre Procedure Diagnosis: (1) Non-Hodgkin lymphoma (2) ALDO (acute kidney injury) Post Procedure Diagnosis: (1) Non-Hodgkin lymphoma (2) ALDO (acute kidney injury) Procedure Date: May 15, 2017 Supervising Radiologist: Bryon Calero JR Proceduralist/Assist: Hyacinth Rudolph, RT(R), RT Evy(R)() Anesthesia: Local Plan of Activity Patient to Unit: Nursing Unit Patient Condition: Good See PACS Report for procedural detail/treatment Central Venous Access Device Procedure 1 Left Internal Jugular Hemodialysis Catheter Non-Tunneled Placement dual lumen [place]: 14 Findings: Diffuse cervical adenopathy. Placed LIJ. Tip in mid right atrium. Best flow rates obtainable given adenopathy. Jr. Abdias,Bryon Castillo MD May 15, 2017 16:00
--- NOTE | 2017-05-15 16:09 | HHI.IDPN ---
Subjective Subjective Remarks Patient is a 47-year-old male, initially presented to the hospital complaining of abdominal pain, nausea, and vomiting. He was found to have pancreatitis, and he also had elevated liver function tests. There is history of previous alcohol abuse. He was also found to have a right base pneumonia, and he was started on a Zithromax and Rocephin. Patient also had some abnormality on his urinalysis and was also being treated for UTI. His imaging study showed right hilar mass, and he had evidence on exam of supraclavicular lymph nodes. CT of the chest revealed pleural effusion, and extensive mediastinal and axillary lymphadenopathy. 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 Oncology has been following the patient, and patient was started on chemotherapy on April 30. Patient's pancreatitis has improved although he still has some abdominal pain. He got Rituxan on on May 08, and he is currently getting Decadron, cyclophosphamide, as well as etoposide /Doxorubicin/Vincristine. This morning he went into respiratory failure, and transferred to the ICU, and ended up getting intubated. Pulmonary started seeing the patient around April 29 and at that time he had shortness of breath. He had bilateral pleural effusion, and underwent thoracentesis on the right, and the fluid is exudative. Patient had CTA today, and it showed pulmonary embolism, as well as no infiltrates on the right side. He is afebrile. Currently on the vent, and on sedation. Notes reviewed Temps ok BP ok Had HD today Tired Diarrhea better C diff came back (+) On nasal O2 Looks very weak Finished Abx 05/08 Antibiotics Flagyl Vanco po Lines Port Vascath Past Medical History Previous tobacco and ETOH use Allergies: Coded Allergies: No Known Allergies (Unverified , 04/18/17) Objective . Vital Signs Date Time Temp Pulse Resp B/P Pulse Ox O2 Delivery O2 Flow Rate FiO2 05/15/17 12:00 97.4 44 18 102/56 94 05/15/17 11:30 72 18 118/68 96 05/15/17 08:10 97.1 66 18 107/60 94 05/15/17 08:00 82 05/15/17 04:44 98.0 58 18 108/62 96 05/15/17 01:09 97.8 57 18 104/62 97 05/14/17 22:00 79 05/14/17 21:50 96 Nasal Cannula 2.00 05/14/17 20:00 99.0 77 21 113/62 98 05/14/17 20:00 77 05/14/17 18:00 79 05/14/17 05/14/17 05/15/17 15:00 23:00 07:00 Intake Total 407 ml 495 ml Output Total 0 ml 100 ml Balance 407 ml 495 ml -100 ml Intake Oral 300 ml 400 ml IV Total 107 ml 95 ml Output Urine Total 100 ml Stool Total 0 ml # Bowel Movements 0 . Laboratory Tests Test 05/14/17 05/15/17 04:25 14:09 White Blood Count 7.9 TH/MM3 6.3 TH/MM3 Red Blood Count 2.67 MIL/MM3 3.05 MIL/MM3 Hemoglobin 7.9 GM/DL 8.9 GM/DL Hematocrit 22.5 % 25.7 % Mean Corpuscular Volume 83.9 FL 84.2 FL Mean Corpuscular Hemoglobin 29.7 PG 29.1 PG Mean Corpuscular Hemoglobin 35.4 % 34.6 % Concent Red Cell Distribution Width 16.0 % 16.4 % Platelet Count 377 TH/MM3 355 TH/MM3 Mean Platelet Volume 7.5 FL 7.4 FL Neutrophils (%) (Auto) 85.3 % 85.0 % Lymphocytes (%) (Auto) 8.0 % 8.0 % Monocytes (%) (Auto) 5.2 % 6.0 % Eosinophils (%) (Auto) 1.0 % 0.5 % Basophils (%) (Auto) 0.5 % 0.5 % Neutrophils # (Auto) 6.8 TH/MM3 5.4 TH/MM3 Lymphocytes # (Auto) 0.6 TH/MM3 0.5 TH/MM3 Monocytes # (Auto) 0.4 TH/MM3 0.4 TH/MM3 Eosinophils # (Auto) 0.1 TH/MM3 0.0 TH/MM3 Basophils # (Auto) 0.0 TH/MM3 0.0 TH/MM3 CBC Comment DIFF FINAL DIFF FINAL Differential Comment Laboratory Tests Test 05/14/17 05/15/17 04:25 14:09 Sodium Level 134 MEQ/L 134 MEQ/L Potassium Level 2.3 MEQ/L 2.8 MEQ/L Chloride Level 92 MEQ/L 94 MEQ/L Carbon Dioxide Level 29.3 MEQ/L 27.3 MEQ/L Anion Gap 13 MEQ/L 13 MEQ/L Blood Urea Nitrogen 28 MG/DL 28 MG/DL Creatinine 5.99 MG/DL 6.01 MG/DL Estimat Glomerular Filtration 12 ML/MIN 12 ML/MIN Rate Random Glucose 108 MG/DL 87 MG/DL Calcium Level 8.6 MG/DL 8.3 MG/DL Total Bilirubin 0.7 MG/DL 0.8 MG/DL Aspartate Amino Transf 8 U/L 12 U/L (AST/SGOT) Alanine Aminotransferase 8 U/L 8 U/L (ALT/SGPT) Alkaline Phosphatase 135 U/L 119 U/L Lactate Dehydrogenase 313 U/L 347 U/L Total Protein 6.1 GM/DL 6.3 GM/DL Albumin 2.0 GM/DL 2.1 GM/DL Uric Acid 4.7 MG/DL Imaging Chest X-Ray 05/12/17 0600 Signed Impressions: Service Date/Time: Friday, May 12, 2017 03:33 - CONCLUSION: 1. No significant change in the hazy opacity in the perihilar regions of both lung bases. 2. The right paratracheal mass is unchanged. 3. Interval extubation and removal of nasogastric tube. Goldy Suarez MD Abdomen X-Ray 05/12/17 06 Signed Impressions: Service Date/Time: Friday, May 12, 2017 03:36 - CONCLUSION: No significant change in the bowel gas pattern. Goldy Suarez MD Abdomen X-Ray 05/11/17 0000 Signed Impressions: Service Date/Time: Thursday, May 11, 2017 15:59 - CONCLUSION: 1. Findings consistent with moderate to severe adynamic ileus versus partial small bowel obstruction. Liang Peralta MD Chest X-Ray 05/10/17 0600 Signed Impressions: Service Date/Time: Wednesday, May 10, 2017 03:45 - CONCLUSION: Tubes and catheters are in good position. Bilateral pleural effusions persist. Right paratracheal stripe widening is unchanged Rinku Hillman MD Chest X-Ray 05/09/17 0600 Signed Impressions: Service Date/Time: Tuesday, May 09, 2017 03:15 - CONCLUSION: Perihilar vascular congestion with pleural effusions left greater than right. Tubes and catheters are in good position. Stable widening of the right paratracheal stripe Rinku Hillman MD Abdomen/Pelvis CT 05/09/17 0000 Signed Impressions: Service Date/Time: Tuesday, May 09, 2017 21:16 - CONCLUSION: 1. Diffusely distended loops of small bowel down to the cecum suggest ileus. 2. Evidence of mesenteric and retroperitoneal adenopathy. 3. Large bilateral pleural effusions , moderate amount of free fluid in the pelvis and mild ascites in the upper abdomen. 4. Abnormal appearance to the parenchyma of the right kidney with patchy areas of hyperdensity in a mosaic pattern. This of uncertain significance. The patient had iodinated contrast for a CT pulmonary angiogram 7 days ago; this could potentially represent residual parenchymal contrast which would be nonspecific, but raises the possibility of either obstruction or renal infarctions. Bryon Evans MD Last Impressions Chest X-Ray 05/03/17 0600 Signed Impressions: Service Date/Time: Wednesday, May 03, 2017 03:46 - CONCLUSION: Improving infiltrates. No Tacos Garcia MD Head CT 05/02/17 0000 Signed Impressions: Service Date/Time: Tuesday, May 02, 2017 16:45 - CONCLUSION: No acute intracranial disease. Tray Patel MD CT Angiography 05/02/17 0000 Signed Impressions: Service Date/Time: Tuesday, May 02, 2017 11:10 - CONCLUSION: 1. There is pulmonary embolus in the right pulmonary artery, right upper lobe and lower lobe branches. 2. Resorption of previously seen gas in the left axilla with fluid collection at this site with postprocedural change and possibly postprocedural hemorrhage not significantly changed in size. 3. Interval development of right lung airspace process may represent postobstructive pneumonia and there is mucus within the trachea not present yesterday. 4. Right pleural effusion is smaller and left pleural effusion is larger. 5. No change in bulky adenopathy. Leonor Chavez MD Upper Extremity Ultrasound 04/30/17 0000 Signed Impressions: Service Date/Time: April 12:25 - CONCLUSION: There some superficial thrombosis of a vein in the forearm. The deep venous system is patent. Large fluid collection left axilla. Significant soft tissue edema throughout the upper arm. Rinku Hillman MD Thoracentesis Ultrasound 04/30/17 0000 Signed Impressions: Service Date/Time: April 12:14 - CONCLUSION: Uncomplicated ultrasound guided thoracentesis. Tray Patel MD Port Line Insertion 04/27/17 0000 Signed Impressions: Service Date/Time: Thursday, April 27, 2017 14:56 - CONCLUSION: 1. Bulky bilateral lower cervical lymphadenopathy. 2. Uncomplicated ultrasound and fluoroscopic guided implanted central venous port catheter placement as described in detail above. An 8 [employer] port was placed. Liang Peralta MD Bone Biopsy CT 04/27/17 0000 Signed Impressions: Service Date/Time: Thursday, April 27, 2017 16:22 - CONCLUSION: 1. Uncomplicated CT guided bone marrow aspirate. 2. Uncomplicated CT guided bone marrow biopsy. Tray Patel MD Chest CT 04/25/17 0000 Signed Impressions: Service Date/Time: Wednesday, April 26, 2017 19:00 - CONCLUSION: The right pleural effusion is slightly larger on the left side has not changed. Extensive bulky adenopathy as before and malignancies such as lymphoma is suspected. Leonor Chavez MD Gall Bladder Ultrasound 04/22/17 0000 Signed Impressions: Service Date/Time: Saturday, April 22, 2017 07:35 - CONCLUSION: Small liver with focal abdomen only incompletely evaluated. Large right pleural effusion. effusion. Kirk Briceño MD FACR Abdomen CT 04/20/17 0000 Signed Impressions: Service Date/Time: Thursday, April 20, 2017 19:40 - CONCLUSION: Limited exam because of lack of intravenous contrast. Lymphoma is suspected. Pathological diagnosis could be obtained with ultrasound biopsy of the cervical, axillary or inguinal adenopathy. Kirk Briceño MD FACR Physical Exam GENERAL: awake and responsive, looks very weak, not in respiratory distress. On nasal O2 SKIN: Warm and dry. No generalized rash HEAD: Atraumatic. Normocephalic. No temporal wasting, or tenderness. EYES: [place] conjunctiva. No petechia or hemorrhage. Pupils equal, round and reactive to light. Has dirty sclera. No injection or drainage. EARS, NOSE AND THROAT: Nose without bleeding or purulent nasal discharge. Dry oral mucosa, poor dentition NECK: Trachea midline. Supple and not tender, no meningeal signs. Has significant lymphadenopathy. CARDIOVASCULAR: Regular rate and rhythm. No murmurs, rubs or gallops heard RESPIRATORY: Decreased BS at bases, with few rhonchi. Port look ok. ABDOMEN: Still distended, hypoactive bowel sounds, tympanitic, not tender. No guarding, no rebound EXTREMITIES: No clubbing, cyanosis, or edema. No joint effusion. Warm. Has very dry skin both feet. NEUROLOGICAL: Awake and responding PSYCHIATRIC: Calm and cooperative LINE: Port and vascath with no evidence of infection. : Singh in place, urine looks clear Assessment & Plan Remarks IMPRESSION Respiratory failure, with multiple PE on R, has new infiltrates, ?PNA, ? infarct - PE on R and infiltrates on R - extubated 05/10, seems to be doing well Has Tomi effusions, tap is exudative, ?lymphoma New NHL, has received some chemo Pancreatitis, and elevated LFT likely due to ETOH, stable Acute renal failure, ?sepsis, ?contrast Leukocytosis, better C difficile colitis RECOMMENDATION Continue Flagyl Continue po Vancomycin Plan 14 days Rx for C diff Avoid systemic Abx if possible Clinically doing well from ID standpoint I will be available prn Please reconsult of with any new ID issue or question Maggy Solis MD May 15, 2017 16:09
--- NOTE | 2017-05-15 16:40 | HHI.GIFU ---
Subjective Remarks Pt resting in bed, in no apparent distress. Denies abd pain. NO BM today, + flatus. (Freya Figueroa) Objective Vitals I&O Vital Signs Date Time Temp Pulse Resp B/P Pulse Ox O2 Delivery O2 Flow Rate FiO2 05/15/17 12:00 97.4 44 18 102/56 94 05/15/17 11:30 72 18 118/68 96 05/15/17 08:10 97.1 66 18 107/60 94 05/15/17 08:00 82 05/15/17 04:44 98.0 58 18 108/62 96 05/15/17 01:09 97.8 57 18 104/62 97 05/14/17 22:00 79 05/14/17 21:50 96 Nasal Cannula 2.00 05/14/17 20:00 99.0 77 21 113/62 98 05/14/17 20:00 77 05/14/17 18:00 79 I/O 05/14/17 05/14/17 05/14/17 05/15/17 05/15/17 05/15/17 07:00 15:00 23:00 07:00 15:00 23:00 Intake Total 349 ml 407 ml 495 ml Output Total 0 ml 0 ml 100 ml 1500 ml Balance 349 ml 407 ml 495 ml -100 ml -1500 ml Intake Oral 240 ml 300 ml 400 ml IV Total 109 ml 107 ml 95 ml Output Urine Total 100 ml Stool Total 0 ml 0 ml Hemodialysis 1500 ml # Bowel Movements 0 Laboratory Laboratory Tests Test 05/14/17 05/15/17 05/15/17 21:58 07:45 14:09 Activated Partial 62.2 33.9 55.5 Thromboplast Time White Blood Count 6.3 Red Blood Count 3.05 Hemoglobin 8.9 Hematocrit 25.7 Mean Corpuscular Volume 84.2 Mean Corpuscular Hemoglobin 29.1 Mean Corpuscular Hemoglobin 34.6 Concent Red Cell Distribution Width 16.4 Platelet Count 355 Mean Platelet Volume 7.4 Neutrophils (%) (Auto) 85.0 Lymphocytes (%) (Auto) 8.0 Monocytes (%) (Auto) 6.0 Eosinophils (%) (Auto) 0.5 Basophils (%) (Auto) 0.5 Neutrophils # (Auto) 5.4 Lymphocytes # (Auto) 0.5 Monocytes # (Auto) 0.4 Eosinophils # (Auto) 0.0 Basophils # (Auto) 0.0 CBC Comment DIFF FINAL Differential Comment Sodium Level 134 Potassium Level 2.8 Chloride Level 94 Carbon Dioxide Level 27.3 Anion Gap 13 Blood Urea Nitrogen 28 Creatinine 6.01 Estimat Glomerular Filtration 12 Rate Random Glucose 87 Uric Acid 4.7 Calcium Level 8.3 Total Bilirubin 0.8 Aspartate Amino Transf 12 (AST/SGOT) Alanine Aminotransferase 8 (ALT/SGPT) Alkaline Phosphatase 119 Lactate Dehydrogenase 347 Total Protein 6.3 Albumin 2.1 Date/Time Procedure Status Source Growth 05/11/17 15:00 Urine Culture - Preliminary Resulted Urine Catheterized Urine Mae Species 05/11/17 15:00 - Final Complete Other Imaging Last Impressions Abdomen X-Ray 05/15/17 0600 Draft Impressions: Service Date/Time: Monday, May 15, 2017 04:29 - CONCLUSION: Findings of mild small bowel ileus. There has been no significant change when compared to the prior exam. Jadon Carroll MD Chest X-Ray 05/12/17 0600 Signed Impressions: Service Date/Time: Friday, May 12, 2017 03:33 - CONCLUSION: 1. No significant change in the hazy opacity in the perihilar regions of both lung bases. 2. The right paratracheal mass is unchanged. 3. Interval extubation and removal of nasogastric tube. Goldy Suarez MD Abdomen/Pelvis CT 05/09/17 0000 Signed Impressions: Service Date/Time: Tuesday, May 09, 2017 21:16 - CONCLUSION: 1. Diffusely distended loops of small bowel down to the cecum suggest ileus. 2. Evidence of mesenteric and retroperitoneal adenopathy. 3. Large bilateral pleural effusions , moderate amount of free fluid in the pelvis and mild ascites in the upper abdomen. 4. Abnormal appearance to the parenchyma of the right kidney with patchy areas of hyperdensity in a mosaic pattern. This of uncertain significance. The patient had iodinated contrast for a CT pulmonary angiogram 7 days ago; this could potentially represent residual parenchymal contrast which would be nonspecific, but raises the possibility of either obstruction or renal infarctions. Bryon Evans MD Renal Ultrasound 05/05/17 0000 Signed Impressions: Service Date/Time: Friday, May 05, 2017 20:06 - CONCLUSION: 1. Kidneys are borderline echogenic which can be seen with medical renal disease. 2. No evidence of hydronephrosis. 3. Abdominal ascites. 4. Multiple dilated bowel loops. 5. Bilateral pleural effusions. Tray Patel MD Head CT 05/03/17 Signed Impressions: Service Date/Time: Wednesday, May 03, 2017 17:22 - CONCLUSION: No acute intracranial disease. No hemorrhage seen. Tray Patel MD CT Angiography 05/02/17 Signed Impressions: Service Date/Time: Tuesday, May 02, 2017 11:10 - CONCLUSION: 1. There is pulmonary embolus in the right pulmonary artery, right upper lobe and lower lobe branches. 2. Resorption of previously seen gas in the left axilla with fluid collection at this site with postprocedural change and possibly postprocedural hemorrhage not significantly changed in size. 3. Interval development of right lung airspace process may represent postobstructive pneumonia and there is mucus within the trachea not present yesterday. 4. Right pleural effusion is smaller and left pleural effusion is larger. 5. No change in bulky adenopathy. Leonor Chavez MD Upper Extremity Ultrasound 04/30/17 Signed Impressions: Service Date/Time: April 12:25 - CONCLUSION: There some superficial thrombosis of a vein in the forearm. The deep venous system is patent. Large fluid collection left axilla. Significant soft tissue edema throughout the upper arm. Rinku Hillman MD Thoracentesis Ultrasound 04/30/17 Signed Impressions: Service Date/Time: April 12:14 - CONCLUSION: Uncomplicated ultrasound guided thoracentesis. Tray Patel MD Port Line Insertion 04/27/17 Signed Impressions: Service Date/Time: Thursday, April 27, 2017 14:56 - CONCLUSION: 1. Bulky bilateral lower cervical lymphadenopathy. 2. Uncomplicated ultrasound and fluoroscopic guided implanted central venous port catheter placement as described in detail above. An 8 [place] port was placed. Liang Peralta MD Bone Biopsy CT 04/27/17 0000 Signed Impressions: Service Date/Time: Thursday, April 27, 2017 16:22 - CONCLUSION: 1. Uncomplicated CT guided bone marrow aspirate. 2. Uncomplicated CT guided bone marrow biopsy. Tray Patel MD Chest CT 04/25/17 0000 Signed Impressions: Service Date/Time: Wednesday, April 26, 2017 19:00 - CONCLUSION: The right pleural effusion is slightly larger on the left side has not changed. Extensive bulky adenopathy as before and malignancies such as lymphoma is suspected. Leonor Chavez MD Gall Bladder Ultrasound 04/22/17 0000 Signed Impressions: Service Date/Time: Saturday, April 22, 2017 07:35 - CONCLUSION: Small liver with focal abdomen only incompletely evaluated. Large right pleural effusion. effusion. Kirk Briceño MD FACR Abdomen CT 04/20/17 0000 Signed Impressions: Service Date/Time: Thursday, April 20, 2017 19:40 - CONCLUSION: Limited exam because of lack of intravenous contrast. Lymphoma is suspected. Pathological diagnosis could be obtained with ultrasound biopsy of the cervical, axillary or inguinal adenopathy. Kirk Briceño MD FACR Physical Exam HEENT: PERRL. Normocephalic; atraumatic; no jaundice. CHEST: CTA CARDIAC: RRR ABDOMEN: soft, mildly Distended, nontender; no hepatosplenomegaly; bowel sounds hypoactive EXTREMITIES: no clubbing, cyanosis, edema SKIN: Normal; no rash; no jaundice. CRIMINAL INTELLIGENCE ANALYST:alert (Freya Figueroa S DEVELOPMENT SPECIALIST) Assessment and Plan Plan ASSESSMENT - Abdominal distention, emesis - ileus KUB 8- ---> Findings of mild small bowel ileus. There has been no significant change when compared to the prior exam KUB 7-31 showing mod to severe ileus; fu KUB 8-1 no significant change from previous. KUB 05/08/17--Air-filled mildly dilated loops of small bowel suggesting ileus or partial small bowel obstruction. Abdomen/Pelvis CT 05/09/17-- 1. Diffusely distended loops of small bowel down to the cecum suggest ileus. 2. Evidence of mesenteric and retroperitoneal adenopathy. 3. Large bilateral pleural effusions, moderate amount of free fluid in the pelvis and mild ascites in the upper abdomen. 4. Abnormal appearance to the parenchyma of the right kidney with patchy areas of hyperdensity in a mosaic pattern. This of uncertain significance. The patient had iodinated contrast for a CT pulmonary angiogram 7 days ago; this could potentially represent residual parenchymal contrast which would be nonspecific, but raises the possibility of either obstruction or renal infarctions. General surgery following. - c diff - pos tox c diff PCR. on Flagyl. - leukocytosis - improved - Acute hypoxic respiratory failure, extubated. Chest X-Ray 05/10/17--Tubes and catheters are in good position. Bilateral pleural effusions persist. Right paratracheal stripe widening is unchanged - PE, ALDO on HD, b cell lymphoma - per [facility] PLAN - if n/v, NGT - when eating full liquids per ST - continue flagyl - Further recommendations to follow based on results of above Patient seen and examined by Dr. Park and myself and this note is written on her behalf. (Freya Figueroa) Freya Figueroa May 15, 2017 16:40 Daily Park MD May 15, 2017 20:21
--- NOTE | 2017-05-15 17:01 | HHI.PR ---
Subjective Remarks Feels better. No SOB at rest.. Has arm swelling NO chest pain. No fever. On Chemo. and on anticoagulants Objective Vital Signs Date Time Temp Pulse Resp B/P Pulse Ox O2 Delivery O2 Flow Rate FiO2 05/15/17 12:00 97.4 44 18 102/56 94 05/15/17 11:30 72 18 118/68 96 05/15/17 08:10 97.1 66 18 107/60 94 05/15/17 08:00 82 05/15/17 04:44 98.0 58 18 108/62 96 05/15/17 01:09 97.8 57 18 104/62 97 05/14/17 22:00 79 05/14/17 21:50 96 Nasal Cannula 2.00 05/14/17 20:00 99.0 77 21 113/62 98 05/14/17 20:00 77 05/14/17 18:00 79 I/O 05/14/17 05/14/17 05/14/17 05/15/17 05/15/17 05/15/17 06:59 14:59 22:59 06:59 14:59 22:59 Intake Total 349 ml 407 ml 495 ml Output Total 0 ml 0 ml 100 ml 1500 ml Balance 349 ml 407 ml 495 ml -100 ml -1500 ml Intake Oral 240 ml 300 ml 400 ml IV Total 109 ml 107 ml 95 ml Output Urine Total 100 ml Stool Total 0 ml 0 ml Hemodialysis 1500 ml # Bowel Movements 0 Result Diagram: 05/15/17 1409 05/15/17 1409 Objective Remarks GENERAL: This is a mid aged A/A male , well-developed patient alert . HEENT: Throat clear. CARDIOVASCULAR: Regular rate and rhythm without murmurs, gallops, or rubs. RESPIRATORY: Occ wheezes,and diminished breath sounds bilaterally. GASTROINTESTINAL: Abdomen soft, non-tender,nondistended. + bowel sounds MUSCULOSKELETAL: Extremities show 2 + edema of arms. NEURO: awake and responds well.Moves all. Assessment and Plan Assessment and Plan ASSESSMENT 1. Acute kidney injury. 2. Respiratory failure. 3. Acute Pulmonary embolism. 4. Non-Hodgkin's lymphoma. 5. Anemia. 6. Hyperphosphatemia. Plan : 1. O2 2 L prn 2. Nebs tid , duoneb 3. Anticoagulation as Ordered.Add Coumadin. 4. CBC BMP in am 5. IS at bedside q3h 6. PFT on Thursday 7. PT and OT Con Pierre MD May 15, 2017 17:01
[2017-05-15] MEDS ORDERED: IOHEXOL 350 MG/ML 50 ML BTL (for RAD DIAG) IV ONE (20:42)
[2017-05-15 23:30] LABS: APTT (PATIENT) 93.4 SEC (24.3-30.1)
[2017-05-16] VITALS (9 sets, daily range): BP systolic 102–120; BP diastolic 54–66; PULSE 47–88; RESP 12–20; TEMP 96.4–98.6; O2SAT 93–97
[2017-05-16] MEDS: ARTIFICIAL TEARS OPTH OINT 3.5 APPLIC/3.5 GM TUBO EACH EYE SCH ×3 (02:00→18:00)
[2017-05-16 03:22] LABS: APTT (PATIENT) 58.8 SEC (24.3-30.1)
[2017-05-16 05:59] LABS: AUTOMATED NEUTROPHIL # 4.1 TH/MM3 (1.8-7.7); BASOPHIL # 0.1 TH/MM3 (0-0.2); BASOPHIL % 1.6 % (0.0-2.0); EOSINOPHIL % 0.5 % (0.0-4.0); HEMATOCRIT 21.6 % (39.0-51.0); HEMO FLAGS DIFF FINAL; LYMPH % 10.5 % (9.0-44.0); LYMPHOCYTE # 0.5 TH/MM3 (1.0-4.8); MEAN CELL VOLUME 85.4 FL (80.0-100.0); MEAN CORPUSCULAR HEMOGLOBIN 29.8 PG (27.0-34.0); MEAN CORPUSCULAR HGB CONC 34.9 % (32.0-36.0); MONO % 6.9 % (0.0-8.0); NEUT % 80.5 % (16.0-70.0); PLATELET COUNT 289 TH/MM3 (150-450); RED BLOOD COUNT 2.53 MIL/MM3 (4.50-5.90); RED CELL DISTRIBUTION WIDTH 16.6 % (11.6-17.2); WHITE BLOOD COUNT 5.1 TH/MM3 (4.0-11.0)
[2017-05-16] MEDS: INSULIN NovoLIN REGULAR SUPPLEMENTAL SCALE SQ SCH ×2 (06:00)
[2017-05-16] MEDS: metroNIDAZOLE 500 MG TAB PO SCH ×3 (06:08→20:41)
[2017-05-16 06:29] LABS: ALKALINE PHOSPHATASE 105 U/L (45-117); ALT (GPT) 7 U/L (12-78); ANION GAP 16 MEQ/L (5-15); AST (GOT) 11 U/L (15-37); BLOOD UREA NITROGEN 31 MG/DL (7-18); CHLORIDE 93 MEQ/L (98-107); GLOMERULAR FILTRATION RATE 11 ML/MIN (>89); LDH SERUM 305 U/L (87-241); SODIUM (NA) 134 MEQ/L (136-145); TOTAL BILIRUBIN ADULT 0.8 MG/DL (0.2-1.0); URIC ACID 5.8 MG/DL (2.6-7.2)
--- NOTE | 2017-05-16 06:42 | RADRPT ---
EXAM DATE/TIME: 05/16/2017 05:38 [place] COMPARISON: CT PULMONARY ANGIOGRAM, May 02, 2017, 11:10. CHEST SINGLE AP, May 12, 2017, 3:33. INDICATIONS : Follow up infiltrate. MEDICAL HISTORY : None. SURGICAL HISTORY : None. ENCOUNTER: Subsequent ACUITY: 3 days PAIN SCORE: 6/10 LOCATION: Bilateral chest FINDINGS: The cardiac silhouette is normal in transverse diameter. Support lines and tubes are in satisfactory position. There is bilateral lower lobe atelectasis versus pneumonia. Small bilateral pleural effusio ns are identified. The large mediastinal mass is unchanged. CONCLUSION: 1. Bilateral lower lobe atelectasis versus pneumonia. Bilateral effusions. There has been no signific ant change when compared to the prior exam. Jadon Carroll MD on May 16, 2017 at 6:39 Board Certified Radiologist. This report was verified electronically.
[2017-05-16 07:31] LABS: POTASSIUM 2.6 MEQ/L (3.5-5.1)
[2017-05-16] MEDS: CHLORHEXIDINE 0.12% (ORAL KIT) 15 ML CUP MT SCH ×2 (08:00→20:00)
--- NOTE | 2017-05-16 08:04 | HHI.PR ---
Subjective Remarks resting comfortably with no distress. denies pain. afebrile. d/w the RN. Objective Vitals Vital Signs Date Time Temp Pulse Resp B/P Pulse Ox O2 Delivery O2 Flow Rate FiO2 05/16/17 04:00 97.7 69 17 110/55 97 05/16/17 00:42 88 05/16/17 00:00 96.9 65 16 102/64 95 05/15/17 20:00 97.0 88 16 108/54 95 05/15/17 16:30 98.1 64 18 109/60 96 05/15/17 12:00 97.4 44 18 102/56 94 05/15/17 11:30 72 18 118/68 96 05/15/17 08:10 97.1 66 18 107/60 94 05/15/17 08:00 82 I/O 05/15/17 05/15/17 05/15/17 05/16/17 05/16/17 05/16/17 07:00 15:00 23:00 07:00 15:00 23:00 Intake Total 240 ml 240 ml 240 ml Output Total 100 ml 1500 ml 200 ml Balance -100 ml -1260 ml 240 ml 40 ml Intake Oral 240 ml 240 ml 240 ml Output Urine Total 100 ml 200 ml Hemodialysis 1500 ml Result Diagram: 05/16/17 0440 05/16/17 0440 Imaging Last Impressions Chest X-Ray 05/16/17 06 Signed Impressions: Service Date/Time: Tuesday, May 16, 2017 05:38 - CONCLUSION: 1. Bilateral lower lobe atelectasis versus pneumonia. Bilateral effusions. There has been no significant change when compared to the prior exam. Jadon Carroll MD Abdomen X-Ray 05/15/17 0600 Draft Impressions: Service Date/Time: Monday, May 15, 2017 04:29 - CONCLUSION: Findings of mild small bowel ileus. There has been no significant change when compared to the prior exam. Jadon Carroll MD Abdomen/Pelvis CT 05/09/17 0000 Signed Impressions: Service Date/Time: Tuesday, May 09, 2017 21:16 - CONCLUSION: 1. Diffusely distended loops of small bowel down to the cecum suggest ileus. 2. Evidence of mesenteric and retroperitoneal adenopathy. 3. Large bilateral pleural effusions , moderate amount of free fluid in the pelvis and mild ascites in the upper abdomen. 4. Abnormal appearance to the parenchyma of the right kidney with patchy areas of hyperdensity in a mosaic pattern. This of uncertain significance. The patient had iodinated contrast for a CT pulmonary angiogram 7 days ago; this could potentially represent residual parenchymal contrast which would be nonspecific, but raises the possibility of either obstruction or renal infarctions. Bryon Evans MD Renal Ultrasound 05/05/17 Signed Impressions: Service Date/Time: Friday, May 05, 2017 20:06 - CONCLUSION: 1. Kidneys are borderline echogenic which can be seen with medical renal disease. 2. No evidence of hydronephrosis. 3. Abdominal ascites. 4. Multiple dilated bowel loops. 5. Bilateral pleural effusions. Tray Patel MD Head CT 05/03/17 Signed Impressions: Service Date/Time: Wednesday, May 03, 2017 17:22 - CONCLUSION: No acute intracranial disease. No hemorrhage seen. Tray Patel MD CT Angiography 05/02/17 Signed Impressions: Service Date/Time: Tuesday, May 02, 2017 11:10 - CONCLUSION: 1. There is pulmonary embolus in the right pulmonary artery, right upper lobe and lower lobe branches. 2. Resorption of previously seen gas in the left axilla with fluid collection at this site with postprocedural change and possibly postprocedural hemorrhage not significantly changed in size. 3. Interval development of right lung airspace process may represent postobstructive pneumonia and there is mucus within the trachea not present yesterday. 4. Right pleural effusion is smaller and left pleural effusion is larger. 5. No change in bulky adenopathy. Leonor Chavez MD Upper Extremity Ultrasound 04/30/17 Signed Impressions: Service Date/Time: April 12:25 - CONCLUSION: There some superficial thrombosis of a vein in the forearm. The deep venous system is patent. Large fluid collection left axilla. Significant soft tissue edema throughout the upper arm. Rinku Hillman MD Thoracentesis Ultrasound 04/30/17 Signed Impressions: Service Date/Time: April 12:14 - CONCLUSION: Uncomplicated ultrasound guided thoracentesis. Tray Patel MD Port Line Insertion 7/17/17 0000 Signed Impressions: Service Date/Time: Thursday, April 27, 2017 14:56 - CONCLUSION: 1. Bulky bilateral lower cervical lymphadenopathy. 2. Uncomplicated ultrasound and fluoroscopic guided implanted central venous port catheter placement as described in detail above. An 8 [employer] port was placed. Liang Peralta MD Bone Biopsy CT 04/27/17 0000 Signed Impressions: Service Date/Time: Thursday, April 27, 2017 16:22 - CONCLUSION: 1. Uncomplicated CT guided bone marrow aspirate. 2. Uncomplicated CT guided bone marrow biopsy. Tray Patel MD Chest CT 04/25/17 0000 Signed Impressions: Service Date/Time: Wednesday, April 26, 2017 19:00 - CONCLUSION: The right pleural effusion is slightly larger on the left side has not changed. Extensive bulky adenopathy as before and malignancies such as lymphoma is suspected. Leonor Chavez MD Gall Bladder Ultrasound 04/22/17 0000 Signed Impressions: Service Date/Time: Saturday, April 22, 2017 07:35 - CONCLUSION: Small liver with focal abdomen only incompletely evaluated. Large right pleural effusion. effusion. Kirk Briceño MD FACR Abdomen CT 04/20/17 0000 Signed Impressions: Service Date/Time: Thursday, April 20, 2017 19:40 - CONCLUSION: Limited exam because of lack of intravenous contrast. Lymphoma is suspected. Pathological diagnosis could be obtained with ultrasound biopsy of the cervical, axillary or inguinal adenopathy. Kirk Briceño MD FACR Objective Remarks GENERAL:ill looking but in no acute distress CARDIOVASCULAR: Regular rate and regular rhythm without murmurs, gallops, or rubs. RESPIRATORY: Clear to auscultation. Breath sounds equal bilaterally. No wheezes , rales, or rhonchi. GASTROINTESTINAL: Abdomen soft, non-tender, nondistended. Normal, active bowel sounds MUSCULOSKELETAL: Extremities without clubbing, cyanosis, or edema. NEURO: awake and alert Procedures 04/[address] excision biopsy 04/27- port placement 05/02-TPA 05/06-left IJ Vas-Cath placement endotracheal intubation Medications and IVs Current Medications Ondansetron HCl 4 mg 4 mg ONCE ONCE IVP Last administered on 04/18/17t 17:38; Start 04/18/17 at 17:30; Stop 04/18/17 at 17:31; Status DC Sodium Chloride (NS 1000 ml Inj) 1,000 ml @ 1,000 mls/hr Q1H IV Last administered on 04/18/17 17:38; Start 04/18/17 at 17:16; Stop 04/18/17 at 18:15; Status DC Sodium Chloride 2 ml 2 ml UNSCH PRN IV FLUSH FLUSH AFTER USING IV ACCESS Last administered on 04/21/17 22:27; Start 04/18/17 at 17:30 Sodium Chloride 1,000 ml @ 1,000 mls/hr Q1H IV Last administered on 04/18/17 18:40; Start 04/18/17 at 18:37; Stop 04/18/17 at 19:36; Status DC Potassium Chloride (KCl 20 Meq Premix Inj) 100 ml @ 50 mls/hr Q2H IV Last administered on 04/18/17 22:12; Start 04/18/17 at 19:00; Stop 04/18/17 at 22:59; Status DC Ondansetron HCl (Zofran Inj) 4 mg Q6H PRN IVP NAUSEA OR VOMITING Last administered on 04/26/17 06:04; Start 04/18/17 at 19:30; Stop 04/26/17 at 13:02 ; Status DC Morphine Sulfate (Morphine Inj) 2 mg Q3H PRN IV Pain 3-5; if unable to take PO ; Start 04/18/17 at 19:30; Status Cancel Morphine Sulfate (Morphine Inj) 4 mg Q3H PRN IV Pain 6-10;if unable to take PO ; Start 04/18/17 at 19:30; Status Cancel Naloxone HCl (Narcan Inj) 0.4 mg UNSCH PRN IV SEE LABEL COMMENTS; Start at 19:30 Senna/Docusate Sodium (Porsha-Colace) 1 tab BID PO Last administered on 07:52; Start 04/18/17 at 21:00; Stop 05/13/17 at 17:16; Status DC Magnesium Hydroxide (Milk Of Magnesia Liq) 30 ml Q12H PRN PO MILD - MODERATE CONSTIPATION Last administered on 05/09/17 08:01; Start 04/18/17 at 19:30; Stop 05/13/17 at 17:16; Status DC Sennosides (Senokot) 17.2 mg Q12H PRN PO MODERATE - SEVERE CONSTIPATION; Start 04/18/17 at 19:30; Stop 05/13/17 at 17:16; Status DC Bisacodyl (Dulcolax Supp) 10 mg DAILY PRN RECTAL SEVERE CONSITIPATION; Start at 19:30; Stop 05/13/17 at 17:16; Status DC Lactulose 30 ml 30 ml DAILY PRN PO SEVERE CONSITIPATION; Start 04/18/17 at 19:30 ; Stop 05/13/17 at 17:16; Status DC Potassium Chloride/Sodium Chloride 1,000 ml @ 125 mls/hr Q8H IV ; Start at 21:00; Stop 04/18/17 at 21:00; Status DC Potassium Chloride/Sodium Chloride 1,000 ml @ 83 mls/hr Q12H3M IV Last administered on 04/23/17 01:19; Start 04/19/17 at 02:00; Stop 04/23/17 at 09:04 ; Status DC Sodium Chloride (NS 1000 ml Inj) 1,000 ml @ 125 mls/hr Q8H IV Last administered on 04/18/17 20:00; Start 04/18/17 at 20:00; Stop 04/19/17 at 16:01; Status DC Pneumococcal Polyvalent Vaccine 25 mcg 25 mcg ONCE ONCE IM Last administered on 04/19/17 11:20; Start 04/19/17 at 09:00; Stop 04/19/17 at 09:01; Status DC Ceftriaxone Sodium/Sodium Chloride (Rocephin Inj/NS Inj) 100 ml @ 200 mls/hr Q24H IV Last administered on 04/24/17 12:51; Start 04/19/17 at 13:00; Stop at 14:33; Status DC Heparin Sodium (Porcine) (Heparin Inj) 5,000 units Q8HR SQ Last administered on 05/02/17 12:46; Start 04/19/17 at 14:00; Status Hold Azithromycin (Zithromax) 500 mg Q24H PO Last administered on 04/24/17 12:51; Start 04/19/17 at 13:00; Stop 04/24/17 at 14:33; Status DC Clonidine (Catapres) 0.1 mg ONCE ONCE PO Last administered on 04/20/17 22:16 ; Start 04/20/17 at 21:45; Stop 04/20/17 at 21:46; Status DC Nifedipine (Procardia Xl) 30 mg DAILY PO Last administered on 04/25/17 09:42; Start 04/21/17 at 17:00; Stop 04/25/17 at 13:12; Status DC Hydralazine HCl 10 mg 10 mg Q6HR PRN IV PUSH SBP>160, DBP>90 Last administered on 04/27/17 10:15; Start 04/21/17 at 17:00 Cefazolin Sodium/ Sodium Chloride (Ancef Inj/NS Inj) 100 ml @ 200 mls/hr SAFETY ANALYST IV ; Start 04/21/17 at 21:30; Stop 04/24/17 at 21:29; Status DC Midazolam HCl (Versed Inj) 2 mg STK-MED ONCE .ROUTE Last administered on 09:02; Start 04/22/17 at 09:02; Stop 04/22/17 at 09:03; Status DC Bupivacaine HCl/ Epinephrine Bitart (Sensorcaine-Epi 0.5% 50 ml Inj) 50 ml STK- MED ONCE INFIL ; Start 04/22/17 at 09:25; Stop 04/22/17 at 09:26; Status Cancel Albuterol Sulfate (*ALBUTEROL NEB PERIprocedure ONLY) 2.5 mg STK-MED ONCE NEB Last administered on 04/22/17 10:06; Start 04/22/17 at 10:06; Stop 04/22/17 at 10:07; Status DC Fentanyl Citrate (fentaNYL INJ) 200 mcg STK-MED ONCE .ROUTE ; Start 04/22/17 at 10:10; Stop 04/22/17 at 10:11; Status DC Bupivacaine HCl (Marcaine Pf 0.5% Inj) 30 ml STK-MED ONCE INFIL Last administered on 04/22/17 09:25; Start 04/22/17 at 09:25; Stop 04/22/17 at 10:49 ; Status DC Miscellaneous Information ALL NURSING DEPARTME... UNSCH PRN .XX SEE LABEL COMMENTS; Start 04/22/17 at 10:01; Stop 04/23/17 at 10:00; Status DC Dextrose/Sodium Chloride 1,000 ml @ 60 mls/hr [id number] IV Last administered on 04/24/17 06:40; Start 04/23/17 at 12:45; Stop 04/24/17 at 14:36; Status DC Potassium Chloride/Dextrose/ Sodium Chloride (KCl Inj/D5W-NS 1000 ml Inj) 1,015 ml @ 70 mls/hr [id number] IV Last administered on 04/25/17 05:34; Start at 16:00; Stop 04/25/17 at 13:12; Status DC Promethazine HCl (Phenergan Inj) 25 mg ONCE ONCE IM Last administered on 11:55; Start 04/25/17 at 08:00; Stop 04/25/17 at 08:01; Status DC Nifedipine 60 mg 60 mg DAILY PO Last administered on 04/27/17 10:02; Start at 09:00; Stop 04/27/17 at 14:48; Status DC Potassium Chloride/Dextrose/ Sodium Chloride (KCl Inj/D5W-NS 1000 ml Inj) 1,015 ml @ 60 mls/hr [id number] IV Last administered on 04/27/17 18:18; Start at 15:00; Stop 04/28/17 at 11:49; Status DC Promethazine HCl (Phenergan Inj) 12.5 mg Q8H PRN IM PERSISTENT NAUSEA Last administered on 04/30/17 04:34; Start 04/26/17 at 13:15; Stop 04/30/17 at 11:28 ; Status DC Allopurinol 300 mg 300 mg DAILY PO Last administered on 05/05/17 08:12; Start 04/27/17 at 09:00; Stop 05/05/17 at 12:10; Status DC Vancomycin HCl 1000 mg/Sodium Chloride 250 ml @ 250 mls/hr SAFETY ANALYST IV Last administered on 04/27/17 13:49; Start 04/27/17 at 10:00; Stop 04/30/17 at 09:59 ; Status DC Cefazolin Sodium/ Dextrose (Ancef 2 Gm Premix) 50 ml @ 100 mls/hr SAFETY ANALYST IV Last administered on 04/27/17 15:42; Start 04/27/17 at 10:00; Stop 04/30/17 at 09:59; Status DC Nifedipine (Procardia Xl) 90 mg DAILY PO Last administered on 05/15/17 09:00; Start 04/28/17 at 09:00 Clonidine (Catapres) 0.1 mg Q12HR PO ; Start 04/27/17 at 21:00; Status UNV Clonidine (Catapres) 0.1 mg Q6H PRN PO SBP>160, DBP>90 Last administered on 08:07; Start 04/27/17 at 15:00 Heparin Sodium (Porcine) (*HEPARIN CENTRAL FLUSH PERIprocedural ONLY) 500 units STK-MED ONCE IV FLUSH Last administered on 04/27/17 14:51; Start 04/27/17 at 14:51; Stop 04/27/17 at 14:52; Status DC Lidocaine/ Epinephrine (Xylocaine-Epi 1%-1:100,000 Inj) 20 ml STK-MED ONCE .ROUTE Last administered on 04/27/17 14:51; Start 04/27/17 at 14:51; Stop at 14:52; Status DC Midazolam HCl (Versed Inj) 5 mg STK-MED ONCE .ROUTE Last administered on 14:52; Start 04/27/17 at 14:52; Stop 04/27/17 at 14:53; Status DC Fentanyl Citrate 250 mcg 250 mcg STK-MED ONCE .ROUTE Last administered on 14:53; Start 04/27/17 at 14:53; Stop 04/27/17 at 14:54; Status DC Sodium Chloride (NS 1000 ml Inj) 1,000 ml @ 100 mls/hr Q10H IV Last administered on 04/29/17 17:55; Start 04/29/17 at 15:00; Stop 04/30/17 at 00:59 ; Status DC Acetaminophen (Tylenol) 650 mg ONCE ONCE PO Last administered on 04/30/17 16: 44; Start 04/30/17 at 13:00; Stop 04/30/17 at 13:01; Status DC Diphenhydramine HCl 50 mg 50 mg ONCE ONCE PO Last administered on 7/20/17at 16 :43; Start 04/30/17 at 13:00; Stop 04/30/17 at 13:01; Status DC Rituximab/Sodium Chloride (Rituxan Inj/NS 500 ml Inj) 571.625 ml @ 0 mls/hr ONCE ONCE IV Last administered on 05/01/17 13:15; Start 04/30/17 at 14:00; Stop 04/30/17 at 14:01; Status DC Prednisone 115 mg 115 mg Q12H PO ; Start 04/30/17 at 13:00; Stop 05/01/17 at 11: 21; Status DC Dexamethasone Sodium Phosphate 20 mg/Granisetron HCl 1 mg/Sodium Chloride 56 ml @ 224 mls/hr Q24H IV ; Start 04/30/17 at 15:00; Stop 05/01/17 at 11:26; Status DC Potassium Chloride 100 ml @ 50 mls/hr BOLUS ONCE IV Last administered on 04/30 10:20; Start 04/30/17 at 10:00; Stop 04/30/17 at 11:59; Status DC Etoposide 95.5 mg/ Doxorubicin HCl 19.1 mg/ Vincristine Sulfate 0.764 mg/ Sodium Chloride 515.089 ml @ 21.462 mls/hr Q24H IV ; Start 04/30/17 at 15:00; Stop 05/04/17 at 14:59; Status Hold Cyclophosphamide/ Sodium Chloride (Cytoxan Inj/NS 500 ml Inj) 500 ml @ 500 mls/ hr ONCE ONCE IV ; Start 05/04/17 at 14:00; Stop 05/04/17 at 14:59; Status DC Ondansetron HCl (Zofran Inj) 4 mg Q6HR PRN IV PUSH NAUSEA OR VOMITING Last administered on 05/07/17 10:06; Start 04/30/17 at 11:30 Promethazine HCl (Phenergan Inj) 25 mg Q6H PRN IM NAUSEA OR VOMITING Last administered on 05/01/17 13:27; Start 04/30/17 at 11:30 Acetaminophen/ Hydrocodone Bitart ([place] 5-325 Mg) 1 tab Q6H PRN PO PAIN SCALE 1 TO 10 Last administered on 05/12/17 02:48; Start 04/30/17 at 11:30 Albuterol/ Ipratropium (Duoneb Neb) 1 ampule ONCE ONCE NEB Last administered on 04/30/17 20:16; Start 04/30/17 at 19:45; Stop 04/30/17 at 20:11; Status DC Albuterol/ Ipratropium (Duoneb Neb) 1 ampule Q2HR NEB PRN NEB sob, wheeze; Start 04/30/17 at 20:45; Stop 05/02/17 at 10:14; Status DC Morphine Sulfate (Morphine Inj) 2 mg ONCE ONCE IV PUSH Last administered on 23:36; Start 04/30/17 at 23:30; Stop 04/30/17 at 23:31; Status DC Furosemide (Lasix Inj) 10 mg ONCE ONCE IV PUSH Last administered on 05/01/17 01:01; Start 05/01/17 at 00:00; Stop 05/01/17 at 00:01; Status DC Furosemide (Lasix Inj) 20 mg ONCE ONCE IV PUSH Last administered on 05/01/17 09:09; Start 05/01/17 at 07:45; Stop 05/01/17 at 07:52; Status DC Acetaminophen (Tylenol) 650 mg NOW ONCE PO Last administered on 05/01/17 10: 51; Start 05/01/17 at 10:45; Stop 05/01/17 at 10:46; Status DC Diphenhydramine HCl 50 mg 50 mg NOW ONCE PO Last administered on 05/01/17 10: 51; Start 05/01/17 at 10:45; Stop 05/01/17 at 10:46; Status DC Rituximab/Sodium Chloride (Rituxan Inj/NS 500 ml Inj) 571.625 ml @ 0 mls/hr ONCE ONCE IV ; Start 05/01/17 at 12:00; Stop 05/01/17 at 12:01; Status DC Acetaminophen (Tylenol) 650 mg ONCE ONCE PO ; Start 05/01/17 at 11:30; Stop at 11:31; Status DC Diphenhydramine HCl (Benadryl) 50 mg ONCE ONCE PO ; Start 05/01/17 at 11:30; Stop 05/01/17 at 11:31; Status DC Prednisone 115 mg 115 mg Q12HR PO Last administered on 05/02/17 20:08; Start 05/01/17 at 11:00; Stop 05/05/17 at 21:01; Status DC Dexamethasone Sodium Phosphate/ Granisetron HCl/ Sodium Chloride (Decadron Inj/ Kytril Inj/NS Inj) 56 ml @ 224 mls/hr Q24H IV ; Start 05/01/17 at 11:30; Stop 05/06/17 at 11:44; Status DC Metoclopramide HCl (Reglan Inj) 10 mg Q8HR IV PUSH Last administered on 04:59; Start 05/01/17 at 15:30; Stop 05/09/17 at 19:03; Status DC Pantoprazole Sodium (Protonix) 40 mg DAILY PO Last administered on 05/06/17 08 :17; Start 05/01/17 at 16:00; Stop 05/07/17 at 11:49; Status DC Furosemide (Lasix Inj) 20 mg ONCE ONCE IV PUSH Last administered on 05/01/17 16:14; Start 05/01/17 at 15:30; Stop 05/01/17 at 15:31; Status DC Albuterol/ Ipratropium (Duoneb Neb) 1 ampule BID NEB INH Last administered on 05/02/17 07:47; Start 05/01/17 at 20:00; Stop 05/02/17 at 10:18; Status DC Furosemide (Lasix Inj) 20 mg STAT ONCE IV PUSH Last administered on 05/02/17 08:40; Start 05/02/17 at 08:30; Stop 05/02/17 at 08:37; Status DC Etomidate (Amidate Inj) 20 mg STK-MED ONCE .ROUTE Last administered on 12:48; Start 05/02/17 at 09:23; Stop 05/02/17 at 09:24; Status DC Dextrose (D50w (Vial) Inj) 25 ml UNSCH PRN IV PUSH HYPOGLYCEMIA-SEE COMMENTS; Start 05/02/17 at 10:00 Insulin Human Regular (NovoLIN R SUPPLEMENTAL SCALE) 1 Q6HR SQ Last administered on 05/04/17 18:00; Start 05/02/17 at 12:00 Chlorhexidine Gluconate (Peridex 0.12% Liq) 15 ml BID@08,20 MT Last administered on 05/15/17 20:00; Start 05/02/17 at 20:00 Magnesium Oxide 800 mg 800 mg UNSCH PRN PO For Magnesium 1.2 - 1.6 mg/dL; Start 05/02/17 at 10:00; Stop 05/03/17 at 13:51; Status DC Magnesium Sulfate 4 gm/Sodium Chloride 100 ml @ 50 mls/hr UNSCH PRN IV For Magnesium 0.9 - 1.1 mg/dL; Start 05/02/17 at 10:00; Stop 05/03/17 at 13:51; Status DC Magnesium Sulfate 2 gm/Sodium Chloride 100 ml @ 50 mls/hr UNSCH PRN IV For Magnesium 1.2 - 1.6 mg/dL; Start 05/02/17 at 10:00; Stop 05/03/17 at 13:51; Status DC Potassium Chloride 100 ml @ 50 mls/hr Q2H PRN IV For Potassium 2.8 - 3.2 mEq/L ; Start 05/02/17 at 10:00; Stop 05/03/17 at 13:51; Status DC Potassium Chloride 100 ml @ 50 mls/hr Q2H PRN IV For Potassium 3.3 - 3.5 mEq/L ; Start 05/02/17 at 10:00; Stop 05/03/17 at 13:51; Status DC Potassium Chloride 100 ml @ 50 mls/hr Q2H PRN IV For Potassium 2.8 - 3.2 mEq/L ; Start 05/02/17 at 10:00; Stop 05/03/17 at 13:51; Status DC Potassium Chloride (KCl 40 Meq Premix Inj) 100 ml @ 25 mls/hr UNSCH PRN IV For Potassium 3.3 - 3.5 mEq/L; Start 05/02/17 at 10:00; Stop 05/03/17 at 13:51; Status DC Potassium Phosphate (K-Phos) 2,000 mg Q4H PRN PO For Phosphorus < 2.5 mg/dL; Start 05/02/17 at 10:00; Stop 05/03/17 at 13:51; Status DC Potassium Phosphate 2000 mg 2,000 mg UNSCH PRN PO/TUBE SEE LABEL COMMENTS; Start 05/02/17 at 10:00; Stop 05/03/17 at 13:51; Status DC Potassium Phosphate 30 mmol/ Sodium Chloride 260 ml @ 42 mls/hr UNSCH PRN IV SEE LABEL COMMENTS; Start 05/02/17 at 10:00; Stop 05/03/17 at 13:52; Status DC Sodium Phosphate/ Sodium Chloride (Sodium Phosphate Inj/NS 250 ml Inj) 250 ml @ 42 mls/hr UNSCH PRN IV For Phosphorus < 2.5 mg/dL; Start 05/02/17 at 10:00; Stop 05/03/17 at 13:52; Status DC Albuterol/ Ipratropium (Duoneb Neb) 1 ampule Q6HR NEB INH Last administered on 05/06/17 03:23; Start 05/02/17 at 10:00; Stop 05/06/17 at 10:00; Status DC Albuterol/ Ipratropium 1 ampule 1 ampule Q2HR NEB PRN INH WHEEZING Last administered on 05/08/17 08:08; Start 05/02/17 at 10:00 Fentanyl Citrate 250 ml @ 0 mls/hr TITRATE IV Last administered on 05/10/17 05 :36; Start 05/02/17 at 10:00 Propofol (Diprivan 1000 Mg/100ml Inj) 100 ml @ 0 mls/hr TITRATE IV Last administered on 05/10/17 06:54; Start 05/02/17 at 10:00 Iohexol 75 ml 75 ml STK-MED ONCE IV Last administered on 05/02/17 11:31; Start 05/02/17 at 11:31; Stop 05/02/17 at 11:32; Status DC Cefepime HCl 2000 mg/Sodium Chloride 100 ml @ 200 mls/hr Q12H IV Last administered on 05/05/17 02:43; Start 05/02/17 at 15:00; Stop 05/05/17 at 11:53 ; Status DC Vancomycin HCl/ Sodium Chloride (Vancomycin Inj/ NS 250 ml Inj) 250 ml @ 250 mls/hr ONCE ONCE IV Last administered on 05/02/17 16:14; Start 05/02/17 at 15 :00; Stop 05/02/17 at 15:59; Status DC Heparin Sodium (Porcine) (Heparin Inj) 5,000 units ONCE ONCE IV Last administered on 05/02/17 15:35; Start 05/02/17 at 16:00; Stop 05/02/17 at 16:01 ; Status DC Miscellaneous Information Patient in critical care unit? Ass... [id number] .XX Last administered on 05/02/17 17:30; Start 05/02/17 at 17:15 Chlorhexidine Gluconate (Chlorhexidine 2% Cloth) 3 pack DAILY@04 TOPICAL Last administered on 05/07/17 03:45; Start 05/03/17 at 04:00; Stop 05/07/17 at 04:01 ; Status DC Chlorhexidine Gluconate 3 pack 3 pack UNSCH PRN TOPICAL HYGIENIC CARE; Start at 17:15; Stop 05/07/17 at 17:08; Status DC Alteplase, Recombinant/ Syringe / Bag (Activase Drip/ Syringe/Bag) 49.9999 ml @ 50 mls/hr ONCE ONCE IV Last administered on 05/02/17 19:58; Start 05/02/17 at 19:15; Stop 05/02/17 at 20:14; Status DC Sodium Chloride (NS Inj) 30 ml ONCE ONCE IVF Last administered on 05/02/17 19 :15; Start 05/02/17 at 19:15; Stop 05/02/17 at 19:28; Status DC Miscellaneous Medication Thrombolysis plan for submass... ONCE ONCE OTHER Last administered on 05/02/17 19:15; Start 05/02/17 at 19:15; Stop 05/02/17 at 19:28; Status DC Heparin Sodium/ Dextrose 250 ml @ 0 mls/hr TITRATE IV Last administered on 11:39; Start 05/03/17 at 02:00 Epinephrine HCl/ Dextrose (Adrenalin (1:1000) Inj/D5W Inj) 250 ml @ 30 mls/hr TITRATE IV Last administered on 05/04/17 09:43; Start 05/03/17 at 10:15; Stop 05/07/17 at 16:44; Status DC Calcium Acetate 2668 mg 2,668 mg TID PO Last administered on 05/15/17 17:49; Start 05/03/17 at 09:00 Epoprostenol Sodium/Sodium Chloride (Flolan (30,000 Ng/ml) Neb/NS Inj) 100 ml @ 8 mls/hr Q8H NEB Last administered on 05/04/17 00:17; Start 05/03/17 at 09:00 ; Stop 05/04/17 at 14:14; Status DC Lidocaine HCl 50 ml 50 ml STK-MED ONCE .ROUTE ; Start 05/03/17 at 12:21; Stop at 12:22; Status DC Epoprostenol Sodium 40 ml/ Sodium Chloride 100 ml @ 8 mls/hr Q8H NEB Last administered on 05/06/17 06:04; Start 05/04/17 at 15:00; Stop 05/06/17 at 12:43 ; Status DC Calcium Gluconate 2 gm/Dextrose 120 ml @ 120 mls/hr ONCE ONCE IV Last administered on 05/04/17 20:00; Start 05/04/17 at 20:00; Stop 05/04/17 at 20:59 ; Status DC Cefepime HCl/ Sodium Chloride (Maxipime Inj/NS Inj) 100 ml @ 200 mls/hr Q24H IV Last administered on 05/08/17 01:36; Start 05/06/17 at 03:00; Stop at 23:00; Status DC Allopurinol (Zyloprim) 200 mg DAILY PO Last administered on 05/15/17 11:34; Start 05/06/17 at 09:00 Artificial Tears (Tears Naturale Opth Soln) 1 drop Q8H EACH EYE Last administered on 05/07/17 10:06; Start 05/05/17 at 18:00; Stop 05/07/17 at 12:11 ; Status DC Fentanyl Citrate (fentaNYL INJ) 100 mcg STK-MED ONCE IV ; Start 04/22/17 at 12: 00; Stop 05/06/17 at 12:46; Status DC Propofol (Diprivan 200 Mg/20 ml Inj) 200 mg STK-MED ONCE IV ; Start 04/22/17 at 12:00; Stop 05/06/17 at 12:46; Status DC Phenylephrine HCl (Neosynephrine/ NS 1000 Mcg/10ml Syr) 1,000 mcg STK-MED ONCE IV ; Start 04/22/17 at 12:00; Stop 05/06/17 at 12:47; Status DC Ondansetron HCl (Zofran Inj) 4 mg STK-MED ONCE IV PUSH ; Start 04/22/17 at 12:00 ; Stop 05/06/17 at 12:47; Status DC Pantoprazole Sodium (Protonix Inj) 40 mg DAILY IV PUSH Last administered on 05/15 11:34; Start 05/07/17 at 12:00 Artificial Tears 1 applic 1 applic Q8H EACH EYE Last administered on 05/15/17 17:49; Start 05/07/17 at 18:00 Sodium Chloride (NS 1000 ml Inj) 1,000 ml @ 0 mls/hr TITRATE PRN IV WITH DIALYSIS Last administered on 05/11/17 18:29; Start 05/07/17 at 18:00 Heparin Sodium (Porcine) 8000 units 8,000 units UNSCH PRN IV FLUSH WITH DIALYSIS; Start 05/07/17 at 18:00 Sodium Chloride 1,000 ml @ 200 mls/hr Q5H PRN IV WITH DIALYSIS; Start 05/07/17 at 18:00 Sodium Chloride (NS 250 ml Inj) 200 ml @ 0 mls/hr UNSCH PRN IV WITH DIALYSIS; Start 05/07/17 at 18:00 Mannitol (Mannitol Inj) 12.5 gm UNSCH PRN IV WITH DIALYSIS; Start 05/07/17 at 18:00 Albumin Human (Albumin 25% Inj) 25 gm UNSCH PRN IV WITH DIALYSIS; Start at 18:00 Sodium Chloride (NS Flush) 5 ml UNSCH PRN IV FLUSH WITH DIALYSIS; Start at 18:00 Heparin Sodium (Porcine) (Heparin Inj) Dwell Heparin to f... UNSCH PRN OTHER WITH DIALYSIS Last administered on 05/15/17 10:50; Start 05/07/17 at 18:00 Gentamicin Sulfate (Gentamicin (Dialysis) Inj) 10 mg UNSCH PRN OTHER WITH DIALYSIS Last administered on 05/15/17 10:51; Start 05/07/17 at 18:00 Gelatin (Gelfoam 12 Mm/7 Mm Top) 1 foam UNSCH PRN TOPICAL WITH DIALYSIS; Start 05/07/17 at 18:00 Ondansetron HCl (Zofran Inj) 4 mg UNSCH PRN IV NAUSEA OR VOMITING; Start at 18:00 Acetaminophen (Tylenol) 650 mg UNSCH X1 PRN PO WITH DIALYSIS Last administered on 05/08/17 10:07; Start 05/07/17 at 18:00; Stop 05/14/17 at 17:59; Status DC Diphenhydramine HCl (Benadryl) 25 mg UNSCH PRN PO WITH DIALYSIS; Start at 18:00 Nitroglycerin (Nitrostat Sl) 0.4 mg UNSCH PRN SL WITH DIALYSIS; Start 05/07/17 at 18:00 Clonidine (Catapres) 0.1 mg UNSCH PRN PO WITH DIALYSIS; Start 05/07/17 at 18:00 Polyethylene Glycol (Miralax) 17 gm DAILY PO Last administered on 05/10/17 07: 52; Start 05/08/17 at 09:00; Stop 05/13/17 at 17:16; Status DC Lactulose (Lactulose Liq) 30 ml BID PO Last administered on 05/10/17 07:51; Start 05/08/17 at 09:00; Stop 05/13/17 at 17:16; Status DC Bisacodyl (Dulcolax Supp) 10 mg DAILY PRN RECTAL CONSTIPATION; Start 05/08/17 at 08:15; Stop 05/08/17 at 08:16; Status DC Diatrizoate Meglum/ Diatrizoate Sod ( Gastroview Liq) 18 ml ONCE ONCE PO Last administered on 05/09/17 16:42; Start 05/09/17 at 14:15; Stop 05/09/17 at 14:16; Status DC Heparin Sodium (Porcine) 300 units 300 units NOW ONCE IV ; Start 05/09/17 at 18 :30; Stop 05/09/17 at 18:31; Status DC Potassium Chloride (KCl 20 Meq Premix Inj) 100 ml @ 50 mls/hr BOLUS ONCE IV Last administered on 05/10/17 13:31; Start 05/10/17 at 12:30; Stop 05/10/17 at 14:29; Status DC Sucralfate 1 gm 1 gm Q8HR PO Last administered on 05/13/17 04:46; Start at 14:00; Stop 05/13/17 at 13:59; Status DC Potassium Chloride (KCl 20 Meq Premix Inj) 100 ml @ 50 mls/hr ONCE ONCE IV Last administered on 05/11/17 08:54; Start 05/11/17 at 08:30; Stop 05/11/17 at 10:29; Status DC Metronidazole (Flagyl) 500 mg Q8HR PO Last administered on 05/16/17 06:08; Start 05/11/17 at 14:00; Stop 05/25/17 at 12:00 Morphine Sulfate 4 mg 4 mg NOW ONCE IV PUSH Last administered on 05/12/17 09: 58; Start 05/12/17 at 09:45; Stop 05/12/17 at 09:46; Status DC Potassium Chloride (KCl 40 Meq Premix Inj) 100 ml @ 25 mls/hr ONCE ONCE IV Last administered on 05/12/17 13:51; Start 05/12/17 at 13:45; Stop 05/12/17 at 17: 44; Status DC Vancomycin HCl (VANCOMYCIN for oral use only) 500 mg QID PO Last administered on 05/15/17 20:58; Start 05/13/17 at 13:00; Stop 05/25/17 at 23:00 Dronabinol (Marinol) 5 mg BID@11,16 PO Last administered on 05/15/17 17:49; Start 05/14/17 at 16:00 Heparin Sodium (Porcine) (*HEPARIN INJ Periprocedural ONLY) 10,000 units STK- MED ONCE .ROUTE Last administered on 05/15/17 15:50; Start 05/15/17 at 15:24; Stop 05/15/17 at 15:25; Status DC Sodium Chloride (NS Flush) UNSCH PRN IVF SEE PROTOCOL; Start 05/15/17 at 16:00 Heparin Sodium (Porcine) (Heparin Inj) UNSCH PRN IV FLUSH SEE PROTOCOL; Start 05/15/17 at 16:00 Iohexol (Omnipaque 350 Inj) 10 ml STK-MED ONCE IV Last administered on 15:50; Start 05/15/17 at 20:42; Stop 05/15/17 at 20:43; Status DC A/P Assessment and Plan A/P Acute Hypoxic Respiratory Failure-resolved --continue nebs Acute Submassive Pulmonary Embolism Right Heart Dysfunction Global severe left ventricular systolic dysfunction Cardiogenic Shock -- 2d echo 05/02: EF 30-35%, RV dysfunction with dilation --Repeat ECHO limited study scheduled on 05/09-RV function appears to have normalized, question of interatrial shunt for which cardiology consulted-d/w Dr. Taveras, recommended that once off anticoagulation, would need to be on ASA and require f/u echo periodically for evaluation. Acute Kidney Injury Hypokalemia -- likely secondary to cardiogenic shock -HD initiated. - Nephrology following, Dr. Haley --Left IJ vas catheter, on hemodialysis --Hemodialysis per nephrology -replace potassium cautiously in light of kidney failure Hyperphosphatemia protein calorie malnutrition- severe Ileus -continue Phoslo -started on diet --General surgery and GI following. -Expanded bowel regimen MiraLAX, lactulose, due to site suppository -knock up assembler consulted Large Cell B-cell lymphoma Pulmonary Embolism anemia of chronic disease C. difficile colitis -- hematology/oncology following Dr. Connelly-tentative plan to resume CHOP chemotherapy soon. -- continue heparin drip. transition to Coumadin soon- per hematology. continue Flagyl and Vanco- ID following. Hyperglycemia of Critical Illness-resolved and stable. continue PT. Prophylaxis: DVT: SCDs, heparin drip GI: protonix Catalina Eller MD May 16, 2017 08:04 Catalina Eller MD May 16, 2017 08:04
[2017-05-16] MEDS ORDERED: POTASSIUM CHLORIDE 10 MEQ CONTROLLED RELEASE TAB PO ONE (09:00)
--- NOTE | 2017-05-16 09:51 | HHI.NPPN ---
Subjective History of Present Illness 47-year-old male with no known past medical history who came to the hospital with complaint of nausea, vomiting and abdominal pain on April 18. I was called to see the patient because of elevated BUN and creatinine. The patient had a creatinine of 1.3 on presentation which improved to 0.7 and 0.8, then started increasing for last few days. Additional Remarks Comfortable, had dialysis yesterday. Objective Data Data 05/15/17 05/16/17 19:00 07:00 Intake Total 240 ml 480 ml Output Total 1500 ml 200 ml Balance -1260 ml 280 ml Intake Oral 240 ml 480 ml Output Urine Total 200 ml Hemodialysis 1500 ml Vital Signs Date Time Temp Pulse Resp B/P Pulse Ox O2 Delivery O2 Flow Rate FiO2 05/16/17 08:00 98.6 82 14 109/63 93 05/16/17 04:00 97.7 69 17 110/55 97 05/16/17 00:42 88 05/16/17 00:00 96.9 65 16 102/64 95 05/15/17 20:00 97.0 88 16 108/54 95 05/15/17 16:30 98.1 64 18 109/60 96 05/15/17 12:00 97.4 44 18 102/56 94 05/15/17 11:30 72 18 118/68 96 -: 05/16/17 0440 05/16/17 0440 Physical Exam General Appearance: Anxious, Malnourished Eyes Eye Exam: Pupils Equal Throat Throat Exam: Oral Mucosa [place] [employer] Moist Pulmonary Resp Exam: Crackles, Rhonchi, Decreased Bases, Diminished Breath Sounds, Poor Inspiratory Effort Cardiology CV Exam: Regular, Normal Sinus Rhythm Gastrointestinal/Abdomen GI Exam: Soft, Non-Tender, Bowel Sounds Present, Distended Extremeties Extremities Exam: Trace Edema Neurologic Neuro Exam: Awake Assessment/Plan Assessment Summary: ALDO/Acute Renal Failure Problem List: (1) Non-Hodgkin lymphoma Plan: Hematology following, need for chemotherapy in the future. (2) Adenopathy (3) Pleural effusion (4) Shortness of breath (5) Pulmonary emboli Plan: on anticoagulation. (6) Acute pancreatitis (7) ALDO (acute kidney injury) Plan: He has become dialysis dependent. Plan Replace potassium. Monitor renal function and urine output. Avoid nephrotoxins. Multiple medical problems, alcohol induced pancreatitis. Problem Qualifiers (1) Non-Hodgkin lymphoma: (2) Acute pancreatitis: Qualified Code: K85.20 - Alcohol-induced acute pancreatitis, unspecified complication status Jose R Cazares MD May 16, 2017 09:51
--- NOTE | 2017-05-16 10:13 | PD.ONC.PN ---
Subjective Subjective Remarks Afebrile overnight. patient resting in bed. No overnight events. Objective Data Date Time Temp Pulse Resp B/P Pulse Ox O2 Delivery O2 Flow Rate FiO2 05/16/17 09:56 97 21 05/16/17 08:00 98.6 82 14 109/63 93 05/16/17 04:00 97.7 69 17 110/55 97 05/16/17 00:42 88 05/16/17 00:00 96.9 65 16 102/64 95 05/15/17 20:00 97.0 88 16 108/54 95 05/15/17 16:30 98.1 64 18 109/60 96 05/15/17 12:00 97.4 44 18 102/56 94 05/15/17 11:30 72 18 118/68 96 05/16/17 05/16/17 05/16/17 07:00 15:00 23:00 Intake Total 240 ml Output Total 200 ml Balance 40 ml Result Diagram: 05/16/17 0440 05/16/17 0440 Laboratory Results Laboratory Tests Test 05/15/17 05/15/17 05/16/17 05/16/17 14:09 21:51 02:00 04:40 White Blood Count 6.3 TH/MM3 5.1 TH/MM3 Red Blood Count 3.05 MIL/MM3 2.53 MIL/MM3 Hemoglobin 8.9 GM/DL 7.5 GM/DL Hematocrit 25.7 % 21.6 % Mean Corpuscular Volume 84.2 FL 85.4 FL Mean Corpuscular Hemoglobin 29.1 PG 29.8 PG Mean Corpuscular Hemoglobin 34.6 % 34.9 % Concent Red Cell Distribution Width 16.4 % 16.6 % Platelet Count 355 TH/MM3 289 TH/MM3 Mean Platelet Volume 7.4 FL 7.7 FL Neutrophils (%) (Auto) 85.0 % 80.5 % Lymphocytes (%) (Auto) 8.0 % 10.5 % Monocytes (%) (Auto) 6.0 % 6.9 % Eosinophils (%) (Auto) 0.5 % 0.5 % Basophils (%) (Auto) 0.5 % 1.6 % Neutrophils # (Auto) 5.4 TH/MM3 4.1 TH/MM3 Lymphocytes # (Auto) 0.5 TH/MM3 0.5 TH/MM3 Monocytes # (Auto) 0.4 TH/MM3 0.3 TH/MM3 Eosinophils # (Auto) 0.0 TH/MM3 0.0 TH/MM3 Basophils # (Auto) 0.0 TH/MM3 0.1 TH/MM3 CBC Comment DIFF FINAL DIFF FINAL Differential Comment Activated Partial 55.5 SEC 93.4 SEC 58.8 SEC Thromboplast Time Sodium Level 134 MEQ/L 134 MEQ/L Potassium Level 2.8 MEQ/L 2.6 MEQ/L Chloride Level 94 MEQ/L 93 MEQ/L Carbon Dioxide Level 27.3 MEQ/L 25.0 MEQ/L Anion Gap 13 MEQ/L 16 MEQ/L Blood Urea Nitrogen 28 MG/DL 31 MG/DL Creatinine 6.01 MG/DL 6.62 MG/DL Estimat Glomerular Filtration 12 ML/MIN 11 ML/MIN Rate Random Glucose 87 MG/DL 75 MG/DL Uric Acid 4.7 MG/DL 5.8 MG/DL Calcium Level 8.3 MG/DL 8.5 MG/DL Total Bilirubin 0.8 MG/DL 0.8 MG/DL Aspartate Amino Transf 12 U/L 11 U/L (AST/SGOT) Alanine Aminotransferase 8 U/L 7 U/L (ALT/SGPT) Alkaline Phosphatase 119 U/L 105 U/L Lactate Dehydrogenase 347 U/L 305 U/L Total Protein 6.3 GM/DL 5.8 GM/DL Albumin 2.1 GM/DL 2.0 GM/DL Imaging Studies Last 24 hours Impressions Chest X-Ray 05/16/17 0600 Signed Impressions: Service Date/Time: Tuesday, May 16, 2017 05:38 - CONCLUSION: 1. Bilateral lower lobe atelectasis versus pneumonia. Bilateral effusions. There has been no significant change when compared to the prior exam. Jadon Carroll MD Administered Medications Medications (Trade) Dose Ordered Sig/Shyla Route PRN Reason Start Time Stop Time Status Last Admin Dose Admin Sodium Chloride (NS Flush) 2 ml UNSCH PRN IV FLUSH FLUSH AFTER USING IV ACCESS 04/18/17 17:30 04/21/17 22:27 Heparin Sodium (Porcine) (Heparin Inj) 5,000 units Q8HR SQ 04/19/17 14:00 Hold 05/02/17 12:46 Hydralazine HCl (Apresoline Inj) 10 mg Q6HR PRN IV PUSH SBP>160, DBP>90 04/21/17 17:00 04/27/17 10:15 Nifedipine (Procardia Xl) 90 mg DAILY PO 04/28/17 09:00 05/15/17 09:00 Clonidine (Catapres) 0.1 mg Q6H PRN PO SBP>160, DBP>90 04/27/17 15:00 04/29/17 08:07 Ondansetron HCl (Zofran Inj) 4 mg Q6HR PRN IV PUSH NAUSEA OR VOMITING 04/30/17 11:30 05/07/17 10:06 Promethazine HCl (Phenergan Inj) 25 mg Q6H PRN IM NAUSEA OR VOMITING 04/30/17 11:30 05/01/17 13:27 Acetaminophen/ Hydrocodone Bitart (Malcolm 5-325 Mg) 1 tab Q6H PRN PO PAIN SCALE 1 TO 10 04/30/17 11:30 05/12/17 02:48 Chlorhexidine Gluconate 15 ml 15 ml BID@08,20 MT 05/02/17 20:00 05/15/17 20:00 Fentanyl Citrate 250 ml @ 0 mls/hr TITRATE IV 05/02/17 10:00 05/10/17 05:36 Propofol (Diprivan 1000 Mg/100ml Inj) 100 ml @ 0 mls/hr TITRATE IV 05/02/17 10:00 05/10/17 06:54 Miscellaneous Information Patient in critical care unit? Ass... Q361D .XX 05/02/17 17:15 05/02/17 17:30 Heparin Sodium/ Dextrose (Heparin-D5W Inj) 250 ml @ 0 mls/hr TITRATE IV 05/03/17 02:00 05/15/17 11:39 Calcium Acetate (Phoslo) 2,668 mg TID PO 05/03/17 09:00 05/15/17 17:49 Allopurinol (Zyloprim) 200 mg DAILY PO 05/06/17 09:00 05/15/17 11:34 Pantoprazole Sodium (Protonix Inj) 40 mg DAILY IV PUSH 05/07/17 12:00 05/15/17 11:34 Artificial Tears 1 applic 1 applic Q8H EACH EYE 05/07/17 18:00 05/15/17 17:49 Sodium Chloride (NS 1000 ml Inj) 1,000 ml @ 0 mls/hr TITRATE PRN IV WITH DIALYSIS 05/07/17 18:00 05/11/17 18:29 Heparin Sodium (Porcine) (Heparin Inj) Dwell Heparin to f... UNSCH PRN OTHER WITH DIALYSIS 05/07/17 18:00 05/15/17 10:50 Gentamicin Sulfate (Gentamicin (Dialysis) Inj) 10 mg UNSCH PRN OTHER WITH DIALYSIS 05/07/17 18:00 05/15/17 10:51 Metronidazole (Flagyl) 500 mg Q8HR PO 05/11/17 14:00 05/25/17 12:00 05/16/17 06:08 Vancomycin HCl (VANCOMYCIN for oral use only) 500 mg QID PO 05/13/17 13:00 05/25/17 23:00 05/15/17 20:58 Dronabinol (Marinol) 5 mg BID@11,16 PO 05/14/17 16:00 05/15/17 17:49 Objective Remarks GENERAL: chronically ill male lying in bed, somewhat flat affect SKIN: Warm and dry. HEAD: Normocephalic. EYES: No injection or drainage. NECK: Supple, trachea midline. CARDIOVASCULAR: Regular rate and rhythm RESPIRATORY: Breath sounds equal bilaterally. No accessory muscle use. GASTROINTESTINAL: Abdomen soft, non-tender, nondistended. EXTREMITIES: No cyanosis, or edema. NEUROLOGICAL: awake and alert, normal speech. delayed responses. Assessment/Plan Problem List: (1) Non-Hodgkin lymphoma Status: Acute Plan: --Has aggressive triple hit lymphoma. --Received Rituxan x1. --Neck adenopathy relatively stable. --plan to give CHOP chemotherapy (2) Pulmonary emboli Status: Acute Plan: --on heparin gtt-->will bridge to coumadin once tolerating meals --CTA showed large PE --s/p tpa therapy on 05.02. now on heparin gtt. (3) ALDO (acute kidney injury) Status: Acute Plan: Renal function has not recovered. Remains on HD. Minimal urine output. (4) Normocytic anemia Status: Acute Plan: --multifactorial due to chronic disease, renal failure --monitor and transfuse as needed (5) C. difficile colitis Status: Acute Plan: --on PO Vanco Assessment 47y/o male admitted with pancreatitis, found to have NHL. Given Rituxan on 05.01 and developed massive PE on and went into cardiogenic shock with renal failure. Now critically ill in [facility]. s/p thrombolytic therapy Plan 1. continue heparin gtt 2. monitor CBC Attending Statement The exam, history, and the medical decision-making described in the above note were completed with the assistance of the mid-level provider. I reviewed and agree with the findings presented. I attest that I had a [id number] encounter with the patient on the same day, and personally performed and documented my assessment and findings in the medical record. Feeling weak. No CP/SOB. Diarrhea improved. Will hold off chemo today. Reevaluate tomorrow. Problem Qualifiers (1) Non-Hodgkin lymphoma: Brenda Platt May 16, 2017 10:13 Ruslan Connelly MD May 16, 2017 11:12
[2017-05-16] MEDS: CALCIUM ACETATE 667 MG CAP PO SCH ×3 (11:05→18:00)
[2017-05-16] MEDS: VANCOMYCIN 500 MG VIAL (FOR ORAL USE ONLY) PO SCH ×4 (11:06→20:41)
[2017-05-16] MEDS: ALLOPURINOL 100 MG TAB PO SCH (11:06)
[2017-05-16] MEDS: NIFEdipine 90 MG SUSTAINED RELEASE TAB PO SCH (11:06)
[2017-05-16] MEDS: PANTOPRAZOLE SODIUM 40 MG VIAL IV PUSH SCH (11:07)
[2017-05-16 12:03] LABS: APTT (PATIENT) 47.1 SEC (24.3-30.1)
[2017-05-16] MEDS: DRONABINOL 5 MG CAP PO SCH ×2 (12:20→16:00)
[2017-05-16] MEDS ORDERED: DEXAMETHASONE 4 MG TAB PO ONE (13:00)
--- NOTE | 2017-05-16 13:58 | HHI.GIFU ---
Subjective Remarks patient is sleeping, wakes up when calling his name but falls back to sleep, was able to answer with paucity. States he had one bm today, denies bleeding. Reports some abd pain, no nausea or vomiting (Moises Mariee) Objective Vitals I&O Vital Signs Date Time Temp Pulse Resp B/P Pulse Ox O2 Delivery O2 Flow Rate FiO2 05/16/17 12:00 96.4 60 12 116/54 96 05/16/17 09:56 97 21 05/16/17 08:00 98.6 82 14 109/63 93 05/16/17 04:00 97.7 69 17 110/55 97 05/16/17 00:42 88 05/16/17 00:00 96.9 65 16 102/64 95 05/15/17 20:00 97.0 88 16 108/54 95 05/15/17 16:30 98.1 64 18 109/60 96 I/O 05/15/17 05/15/17 05/15/17 05/16/17 05/16/17 05/16/17 07:00 15:00 23:00 07:00 15:00 23:00 Intake Total 240 ml 240 ml 240 ml Output Total 100 ml 1500 ml 200 ml Balance -100 ml -1260 ml 240 ml 40 ml Intake Oral 240 ml 240 ml 240 ml Output Urine Total 100 ml 200 ml Hemodialysis 1500 ml Laboratory Laboratory Tests Test 05/15/17 05/15/17 05/16/17 05/16/17 14:09 21:51 02:00 04:40 White Blood Count 6.3 5.1 Red Blood Count 3.05 2.53 Hemoglobin 8.9 7.5 Hematocrit 25.7 21.6 Mean Corpuscular Volume 84.2 85.4 Mean Corpuscular Hemoglobin 29.1 29.8 Mean Corpuscular Hemoglobin 34.6 34.9 Concent Red Cell Distribution Width 16.4 16.6 Platelet Count 355 289 Mean Platelet Volume 7.4 7.7 Neutrophils (%) (Auto) 85.0 80.5 Lymphocytes (%) (Auto) 8.0 10.5 Monocytes (%) (Auto) 6.0 6.9 Eosinophils (%) (Auto) 0.5 0.5 Basophils (%) (Auto) 0.5 1.6 Neutrophils # (Auto) 5.4 4.1 Lymphocytes # (Auto) 0.5 0.5 Monocytes # (Auto) 0.4 0.3 Eosinophils # (Auto) 0.0 0.0 Basophils # (Auto) 0.0 0.1 CBC Comment DIFF FINAL DIFF FINAL Differential Comment Activated Partial 55.5 93.4 58.8 Thromboplast Time Sodium Level 134 134 Potassium Level 2.8 2.6 Chloride Level 94 93 Carbon Dioxide Level 27.3 25.0 Anion Gap 13 16 Blood Urea Nitrogen 28 31 Creatinine 6.01 6.62 Estimat Glomerular Filtration 12 11 Rate Random Glucose 87 75 Uric Acid 4.7 5.8 Calcium Level 8.3 8.5 Total Bilirubin 0.8 0.8 Aspartate Amino Transf 12 11 (AST/SGOT) Alanine Aminotransferase 8 7 (ALT/SGPT) Alkaline Phosphatase 119 105 Lactate Dehydrogenase 347 305 Total Protein 6.3 5.8 Albumin 2.1 2.0 Test 05/16/17 11:06 Activated Partial 47.1 Thromboplast Time Date/Time Procedure Status Source Growth 05/11/17 15:00 Urine Culture - Preliminary Resulted Urine Catheterized Urine Mae Species 05/11/17 15:00 - Final Complete Other Imaging Last Impressions Chest X-Ray 05/16/17 0600 Signed Impressions: Service Date/Time: Tuesday, May 16, 2017 05:38 - CONCLUSION: 1. Bilateral lower lobe atelectasis versus pneumonia. Bilateral effusions. There has been no significant change when compared to the prior exam. Jadon Carroll MD Abdomen X-Ray 05/15/17 0600 Draft Impressions: Service Date/Time: Monday, May 15, 2017 04:29 - CONCLUSION: Findings of mild small bowel ileus. There has been no significant change when compared to the prior exam. Jadon Carroll MD Abdomen/Pelvis CT 05/09/17 0000 Signed Impressions: Service Date/Time: Tuesday, May 09, 2017 21:16 - CONCLUSION: 1. Diffusely distended loops of small bowel down to the cecum suggest ileus. 2. Evidence of mesenteric and retroperitoneal adenopathy. 3. Large bilateral pleural effusions , moderate amount of free fluid in the pelvis and mild ascites in the upper abdomen. 4. Abnormal appearance to the parenchyma of the right kidney with patchy areas of hyperdensity in a mosaic pattern. This of uncertain significance. The patient had iodinated contrast for a CT pulmonary angiogram 7 days ago; this could potentially represent residual parenchymal contrast which would be nonspecific, but raises the possibility of either obstruction or renal infarctions. Bryon Evans MD Renal Ultrasound 05/05/17 Signed Impressions: Service Date/Time: Friday, May 05, 2017 20:06 - CONCLUSION: 1. Kidneys are borderline echogenic which can be seen with medical renal disease. 2. No evidence of hydronephrosis. 3. Abdominal ascites. 4. Multiple dilated bowel loops. 5. Bilateral pleural effusions. Tray Patel MD Head CT 05/03/17 Signed Impressions: Service Date/Time: Wednesday, May 03, 2017 17:22 - CONCLUSION: No acute intracranial disease. No hemorrhage seen. Tray Patel MD CT Angiography 05/02/17 Signed Impressions: Service Date/Time: Tuesday, May 02, 2017 11:10 - CONCLUSION: 1. There is pulmonary embolus in the right pulmonary artery, right upper lobe and lower lobe branches. 2. Resorption of previously seen gas in the left axilla with fluid collection at this site with postprocedural change and possibly postprocedural hemorrhage not significantly changed in size. 3. Interval development of right lung airspace process may represent postobstructive pneumonia and there is mucus within the trachea not present yesterday. 4. Right pleural effusion is smaller and left pleural effusion is larger. 5. No change in bulky adenopathy. Leonor Chavez MD Upper Extremity Ultrasound 04/30/17 Signed Impressions: Service Date/Time: April 12:25 - CONCLUSION: There some superficial thrombosis of a vein in the forearm. The deep venous system is patent. Large fluid collection left axilla. Significant soft tissue edema throughout the upper arm. Rinku Hillman MD Thoracentesis Ultrasound 04/30/17 Signed Impressions: Service Date/Time: April 12:14 - CONCLUSION: Uncomplicated ultrasound guided thoracentesis. Tray Patel MD Port Line Insertion 04/27/17 Signed Impressions: Service Date/Time: Thursday, April 27, 2017 14:56 - CONCLUSION: 1. Bulky bilateral lower cervical lymphadenopathy. 2. Uncomplicated ultrasound and fluoroscopic guided implanted central venous port catheter placement as described in detail above. An 8 [place] [employer] port was placed. Liang Peralta MD Bone Biopsy CT 04/27/17 0000 Signed Impressions: Service Date/Time: Thursday, April 27, 2017 16:22 - CONCLUSION: 1. Uncomplicated CT guided bone marrow aspirate. 2. Uncomplicated CT guided bone marrow biopsy. Tray Patel MD Chest CT 04/25/17 0000 Signed Impressions: Service Date/Time: Wednesday, April 26, 2017 19:00 - CONCLUSION: The right pleural effusion is slightly larger on the left side has not changed. Extensive bulky adenopathy as before and malignancies such as lymphoma is suspected. Leonor Chavez MD Gall Bladder Ultrasound 04/22/17 0000 Signed Impressions: Service Date/Time: Saturday, April 22, 2017 07:35 - CONCLUSION: Small liver with focal abdomen only incompletely evaluated. Large right pleural effusion. effusion. Kirk Briceño MD FACR Abdomen CT 04/20/17 0000 Signed Impressions: Service Date/Time: Thursday, April 20, 2017 19:40 - CONCLUSION: Limited exam because of lack of intravenous contrast. Lymphoma is suspected. Pathological diagnosis could be obtained with ultrasound biopsy of the cervical, axillary or inguinal adenopathy. Krik Briceño MD FACR Physical Exam HEENT: PERRL. Normocephalic; atraumatic; no jaundice. CHEST: CTA CARDIAC: RRR ABDOMEN: soft, mildly Distended, nontender; no hepatosplenomegaly; bowel sounds active EXTREMITIES: no clubbing, cyanosis, edema SKIN: Normal; no rash; no jaundice. 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 There has been no significant change when compared to the prior exam KUB 7- showing mod to severe ileus; fu KUB 8- no significant change from previous. KUB 05/08/17--Air-filled mildly dilated loops of small bowel suggesting ileus or partial small bowel obstruction. Abdomen/Pelvis CT 05/09/17-- 1. Diffusely distended loops of small bowel down to the cecum suggest ileus. 2. Evidence of mesenteric and retroperitoneal adenopathy. 3. Large bilateral pleural effusions, moderate amount of free fluid in the pelvis and mild ascites in the upper abdomen. 4. Abnormal appearance to the parenchyma of the right kidney with patchy areas of hyperdensity in a mosaic pattern. This of uncertain significance. The patient had iodinated contrast for a CT pulmonary angiogram 7 days ago; this could potentially represent residual parenchymal contrast which would be nonspecific, but raises the possibility of either obstruction or renal infarctions. General surgery following. - c diff - pos tox c diff PCR. on Flagyl. - Anemia- No active bleeding reported, hh today .5.6, a drop from yesterday - leukocytosis - improving - Pleural effusions- Pulmonology on the case - Acute hypoxic respiratory failure, extubated. Chest X-Ray 05/10/17--Tubes and catheters are in good position. Bilateral pleural effusions persist. Right paratracheal stripe widening is unchanged - PE, ALDO on HD, b cell lymphoma - per attending PLAN - RUBENS - continue flagyl - Monitor hh - transfuse as needed - Further recommendations to follow based on results of above Patient seen and examined by Dr. Park and myself and this note is written on her behalf. (Moises Mariee) Physician Comments seen, examined agree with above calorie tray count (Daily Park MD) Moises Mariee May 16, 2017 13:58 Daily Park MD May 16, 2017 16:05
[2017-05-16 21:45] LABS: APTT (PATIENT) 47.6 SEC (24.3-30.1)
[2017-05-17] VITALS (8 sets, daily range): BP systolic 96–109; BP diastolic 54–64; PULSE 68–86; RESP 14–18; TEMP 96.5–97.7; O2SAT 95–97
[2017-05-17] MEDS: ARTIFICIAL TEARS OPTH OINT 3.5 APPLIC/3.5 GM TUBO EACH EYE SCH ×3 (01:06→18:00)
[2017-05-17] MEDS: metroNIDAZOLE 500 MG TAB PO SCH ×3 (06:00→20:27)
[2017-05-17] MEDS: HEPARIN-D5W 25,000 U/250 ML 250 ML IV SCH (06:24)
[2017-05-17 06:32] LABS: AUTOMATED NEUTROPHIL # 4.6 TH/MM3 (1.8-7.7); BASOPHIL % 0.9 % (0.0-2.0); EOSINOPHIL % 0.5 % (0.0-4.0); HEMATOCRIT 22.6 % (39.0-51.0); HEMO FLAGS DIFF FINAL; LYMPH % 8.9 % (9.0-44.0); LYMPHOCYTE # 0.5 TH/MM3 (1.0-4.8); MEAN CELL VOLUME 85.5 FL (80.0-100.0); MEAN CORPUSCULAR HEMOGLOBIN 29.1 PG (27.0-34.0); MONO % 7.6 % (0.0-8.0); NEUT % 82.1 % (16.0-70.0); PLATELET COUNT 317 TH/MM3 (150-450); RED BLOOD COUNT 2.64 MIL/MM3 (4.50-5.90); RED CELL DISTRIBUTION WIDTH 16.7 % (11.6-17.2); WHITE BLOOD COUNT 5.6 TH/MM3 (4.0-11.0)
[2017-05-17 06:43] LABS: APTT (PATIENT) 50.4 SEC (24.3-30.1)
[2017-05-17 07:04] LABS: ALKALINE PHOSPHATASE 100 U/L (45-117); ALT (GPT) LESS THAN 6 U/L (12-78); ANION GAP 14 MEQ/L (5-15); AST (GOT) 8 U/L (15-37); BICARBONATE 23.6 MEQ/L (21.0-32.0); BLOOD UREA NITROGEN 40 MG/DL (7-18); CHLORIDE 94 MEQ/L (98-107); GLOMERULAR FILTRATION RATE 10 ML/MIN (>89); LDH SERUM 303 U/L (87-241); SODIUM (NA) 132 MEQ/L (136-145); TOTAL BILIRUBIN ADULT 0.7 MG/DL (0.2-1.0); URIC ACID 6.8 MG/DL (2.6-7.2)
[2017-05-17 07:31] LABS: POTASSIUM 2.7 MEQ/L (3.5-5.1)
--- NOTE | 2017-05-17 07:39 | HHI.PR ---
Subjective Remarks resting comfortably with no distress. denies pain. no fever. diarrhea has improved. no new complaints. Objective Vitals Vital Signs Date Time Temp Pulse Resp B/P Pulse Ox O2 Delivery O2 Flow Rate FiO2 05/17/17 04:00 96.5 68 16 109/64 95 05/17/17 04:00 86 05/17/17 00:00 85 05/17/17 00:00 97.1 85 17 100/60 95 05/16/17 20:10 96 21 05/16/17 20:00 87 05/16/17 20:00 96.8 67 18 104/54 96 05/16/17 16:00 96.4 47 20 120/66 96 05/16/17 12:00 96.4 60 12 116/54 96 05/16/17 09:56 97 21 05/16/17 08:00 98.6 82 14 109/63 93 I/O 05/16/17 05/16/17 05/16/17 05/17/17 05/17/17 05/17/17 07:00 15:00 23:00 07:00 15:00 23:00 Intake Total 240 ml 60 ml 240 ml 120 ml Output Total 200 ml 325 ml 100 ml Balance 40 ml -265 ml 140 ml 120 ml Intake Oral 240 ml 60 ml 240 ml 120 ml Output Urine Total 200 ml 325 ml 100 ml # Voids 0 # Bowel Movements 0 Result Diagram: 05/17/17 0615 05/16/17 0440 Imaging Last Impressions Chest X-Ray 05/16/17 0600 Signed Impressions: Service Date/Time: Tuesday, May 16, 2017 05:38 - CONCLUSION: 1. Bilateral lower lobe atelectasis versus pneumonia. Bilateral effusions. There has been no significant change when compared to the prior exam. Jadon Carroll MD Abdomen X-Ray 05/15/17 0600 Draft Impressions: Service Date/Time: Monday, May 15, 2017 04:29 - CONCLUSION: Findings of mild small bowel ileus. There has been no significant change when compared to the prior exam. Jadon Carroll MD Abdomen/Pelvis CT 05/09/17 0000 Signed Impressions: Service Date/Time: Tuesday, May 09, 2017 21:16 - CONCLUSION: 1. Diffusely distended loops of small bowel down to the cecum suggest ileus. 2. Evidence of mesenteric and retroperitoneal adenopathy. 3. Large bilateral pleural effusions , moderate amount of free fluid in the pelvis and mild ascites in the upper abdomen. 4. Abnormal appearance to the parenchyma of the right kidney with patchy areas of hyperdensity in a mosaic pattern. This of uncertain significance. The patient had iodinated contrast for a CT pulmonary angiogram 7 days ago; this could potentially represent residual parenchymal contrast which would be nonspecific, but raises the possibility of either obstruction or renal infarctions. Bryon Evans MD Renal Ultrasound 05/05/17 Signed Impressions: Service Date/Time: Friday, May 05, 2017 20:06 - CONCLUSION: 1. Kidneys are borderline echogenic which can be seen with medical renal disease. 2. No evidence of hydronephrosis. 3. Abdominal ascites. 4. Multiple dilated bowel loops. 5. Bilateral pleural effusions. Tray Patel MD Head CT 05/03/17 Signed Impressions: Service Date/Time: Wednesday, May 03, 2017 17:22 - CONCLUSION: No acute intracranial disease. No hemorrhage seen. Tray Patel MD CT Angiography 05/02/17 Signed Impressions: Service Date/Time: Tuesday, May 02, 2017 11:10 - CONCLUSION: 1. There is pulmonary embolus in the right pulmonary artery, right upper lobe and lower lobe branches. 2. Resorption of previously seen gas in the left axilla with fluid collection at this site with postprocedural change and possibly postprocedural hemorrhage not significantly changed in size. 3. Interval development of right lung airspace process may represent postobstructive pneumonia and there is mucus within the trachea not present yesterday. 4. Right pleural effusion is smaller and left pleural effusion is larger. 5. No change in bulky adenopathy. Leonor Chavez MD Upper Extremity Ultrasound 04/30/17 Signed Impressions: Service Date/Time: April 12:25 - CONCLUSION: There some superficial thrombosis of a vein in the forearm. The deep venous system is patent. Large fluid collection left axilla. Significant soft tissue edema throughout the upper arm. Rinku Hillman MD Thoracentesis Ultrasound 04/30/17 Signed Impressions: Service Date/Time: April 12:14 - CONCLUSION: Uncomplicated ultrasound guided thoracentesis. Tray Patel MD Port Line Insertion 04/27/17 0000 Signed Impressions: Service Date/Time: Thursday, April 27, 2017 14:56 - CONCLUSION: 1. Bulky bilateral lower cervical lymphadenopathy. 2. Uncomplicated ultrasound and fluoroscopic guided implanted central venous port catheter placement as described in detail above. An 8 [employer] port was placed. Liang Peralta MD Bone Biopsy CT 04/27/17 0000 Signed Impressions: Service Date/Time: Thursday, April 27, 2017 16:22 - CONCLUSION: 1. Uncomplicated CT guided bone marrow aspirate. 2. Uncomplicated CT guided bone marrow biopsy. Tray Patel MD Chest CT 04/25/17 0000 Signed Impressions: Service Date/Time: Wednesday, April 26, 2017 19:00 - CONCLUSION: The right pleural effusion is slightly larger on the left side has not changed. Extensive bulky adenopathy as before and malignancies such as lymphoma is suspected. Leonor Chavez MD Gall Bladder Ultrasound 04/22/17 0000 Signed Impressions: Service Date/Time: Saturday, April 22, 2017 07:35 - CONCLUSION: Small liver with focal abdomen only incompletely evaluated. Large right pleural effusion. effusion. Kirk Briceño MD FACR Abdomen CT 04/20/17 0000 Signed Impressions: Service Date/Time: Thursday, April 20, 2017 19:40 - CONCLUSION: Limited exam because of lack of intravenous contrast. Lymphoma is suspected. Pathological diagnosis could be obtained with ultrasound biopsy of the cervical, axillary or inguinal adenopathy. Kirk Briceño MD FACR Objective Remarks GENERAL: in no acute distress CARDIOVASCULAR: Regular rate and regular rhythm without murmurs, gallops, or rubs. RESPIRATORY: Clear to auscultation. Breath sounds equal bilaterally. No wheezes , rales, or rhonchi. GASTROINTESTINAL: Abdomen soft, non-tender, nondistended. Normal, active bowel sounds MUSCULOSKELETAL: Extremities without clubbing, cyanosis, or edema. NEURO: awake and alert Procedures 04/[address] excision biopsy 04/27- port placement 05/02-TPA 05/06-left IJ Vas-Cath placement endotracheal intubation Medications and IVs Current Medications Ondansetron HCl 4 mg 4 mg ONCE ONCE IVP Last administered on 04/18/17 17:38; Start 04/18/17 at 17:30; Stop 04/18/17 at 17:31; Status DC Sodium Chloride (NS 1000 ml Inj) 1,000 ml @ 1,000 mls/hr Q1H IV Last administered on 04/18/17 17:38; Start 04/18/17 at 17:16; Stop 04/18/17 at 18:15; Status DC Sodium Chloride 2 ml 2 ml UNSCH PRN IV FLUSH FLUSH AFTER USING IV ACCESS Last administered on 04/21/17 22:27; Start 04/18/17 at 17:30 Sodium Chloride 1,000 ml @ 1,000 mls/hr Q1H IV Last administered on 04/18/17 18:40; Start 04/18/17 at 18:37; Stop 04/18/17 at 19:36; Status DC Potassium Chloride (KCl 20 Meq Premix Inj) 100 ml @ 50 mls/hr Q2H IV Last administered on 04/18/17 22:12; Start 04/18/17 at 19:00; Stop 04/18/17 at 22:59; Status DC Ondansetron HCl (Zofran Inj) 4 mg Q6H PRN IVP NAUSEA OR VOMITING Last administered on 04/26/17 06:04; Start 04/18/17 at 19:30; Stop 04/26/17 at 13:02 ; Status DC Morphine Sulfate (Morphine Inj) 2 mg Q3H PRN IV Pain 3-5; if unable to take PO ; Start 04/18/17 at 19:30; Status Cancel Morphine Sulfate (Morphine Inj) 4 mg Q3H PRN IV Pain 6-10;if unable to take PO ; Start 04/18/17 at 19:30; Status Cancel Naloxone HCl (Narcan Inj) 0.4 mg UNSCH PRN IV SEE LABEL COMMENTS; Start at 19:30 Senna/Docusate Sodium (Porsha-Colace) 1 tab BID PO Last administered on 07:52; Start 04/18/17 at 21:00; Stop 05/13/17 at 17:16; Status DC Magnesium Hydroxide (Milk Of Magnesia Liq) 30 ml Q12H PRN PO MILD - MODERATE CONSTIPATION Last administered on 05/09/17 08:01; Start 04/18/17 at 19:30; Stop 05/13/17 at 17:16; Status DC Sennosides (Senokot) 17.2 mg Q12H PRN PO MODERATE - SEVERE CONSTIPATION; Start 04/18/17 at 19:30; Stop 05/13/17 at 17:16; Status DC Bisacodyl (Dulcolax Supp) 10 mg DAILY PRN RECTAL SEVERE CONSITIPATION; Start at 19:30; Stop 05/13/17 at 17:16; Status DC Lactulose 30 ml 30 ml DAILY PRN PO SEVERE CONSITIPATION; Start 04/18/17 at 19:30 ; Stop 05/13/17 at 17:16; Status DC Potassium Chloride/Sodium Chloride 1,000 ml @ 125 mls/hr Q8H IV ; Start at 21:00; Stop 04/18/17 at 21:00; Status DC Potassium Chloride/Sodium Chloride 1,000 ml @ 83 mls/hr Q12H3M IV Last administered on 04/23/17 01:19; Start 04/19/17 at 02:00; Stop 04/23/17 at 09:04 ; Status DC Sodium Chloride (NS 1000 ml Inj) 1,000 ml @ 125 mls/hr Q8H IV Last administered on 04/18/17 20:00; Start 04/18/17 at 20:00; Stop 04/19/17 at 16:01; Status DC Pneumococcal Polyvalent Vaccine 25 mcg 25 mcg ONCE ONCE IM Last administered on 04/19/17 11:20; Start 04/19/17 at 09:00; Stop 04/19/17 at 09:01; Status DC Ceftriaxone Sodium/Sodium Chloride (Rocephin Inj/NS Inj) 100 ml @ 200 mls/hr Q24H IV Last administered on 04/24/17 12:51; Start 04/19/17 at 13:00; Stop at 14:33; Status DC Heparin Sodium (Porcine) (Heparin Inj) 5,000 units Q8HR SQ Last administered on 05/02/17 12:46; Start 04/19/17 at 14:00; Status Hold Azithromycin (Zithromax) 500 mg Q24H PO Last administered on 04/24/17 12:51; Start 04/19/17 at 13:00; Stop 04/24/17 at 14:33; Status DC Clonidine (Catapres) 0.1 mg ONCE ONCE PO Last administered on 04/20/17 22:16 ; Start 04/20/17 at 21:45; Stop 04/20/17 at 21:46; Status DC Nifedipine (Procardia Xl) 30 mg DAILY PO Last administered on 04/25/17 09:42; Start 04/21/17 at 17:00; Stop 04/25/17 at 13:12; Status DC Hydralazine HCl 10 mg 10 mg Q6HR PRN IV PUSH SBP>160, DBP>90 Last administered on 04/27/17 10:15; Start 04/21/17 at 17:00 Cefazolin Sodium/ Sodium Chloride (Ancef Inj/NS Inj) 100 ml @ 200 mls/hr [employer]EDING TECHNICIAN IV ; Start 04/21/17 at 21:30; Stop 04/24/17 at 21:29; Status DC Midazolam HCl (Versed Inj) 2 mg STK-MED ONCE .ROUTE Last administered on 09:02; Start 04/22/17 at 09:02; Stop 04/22/17 at 09:03; Status DC Bupivacaine HCl/ Epinephrine Bitart (Sensorcaine-Epi 0.5% 50 ml Inj) 50 ml STK- MED ONCE INFIL ; Start 04/22/17 at 09:25; Stop 04/22/17 at 09:26; Status Cancel Albuterol Sulfate (*ALBUTEROL NEB PERIprocedure ONLY) 2.5 mg STK-MED ONCE NEB Last administered on 04/22/17 10:06; Start 04/22/17 at 10:06; Stop 04/22/17 at 10:07; Status DC Fentanyl Citrate (fentaNYL INJ) 200 mcg STK-MED ONCE .ROUTE ; Start 04/22/17 at 10:10; Stop 04/22/17 at 10:11; Status DC Bupivacaine HCl (Marcaine Pf 0.5% Inj) 30 ml STK-MED ONCE INFIL Last administered on 04/22/17 09:25; Start 04/22/17 at 09:25; Stop 04/22/17 at 10:49 ; Status DC Miscellaneous Information ALL NURSING DEPARTME... UNSCH PRN .XX SEE LABEL COMMENTS; Start 04/22/17 at 10:01; Stop 04/23/17 at 10:00; Status DC Dextrose/Sodium Chloride 1,000 ml @ 60 mls/hr [id number] IV Last administered on 04/24/17 06:40; Start 04/23/17 at 12:45; Stop 04/24/17 at 14:36; Status DC Potassium Chloride/Dextrose/ Sodium Chloride (KCl Inj/D5W-NS 1000 ml Inj) 1,015 ml @ 70 mls/hr [id number] IV Last administered on 04/25/17 05:34; Start at 16:00; Stop 04/25/17 at 13:12; Status DC Promethazine HCl (Phenergan Inj) 25 mg ONCE ONCE IM Last administered on 11:55; Start 04/25/17 at 08:00; Stop 04/25/17 at 08:01; Status DC Nifedipine 60 mg 60 mg DAILY PO Last administered on 04/27/17 10:02; Start at 09:00; Stop 04/27/17 at 14:48; Status DC Potassium Chloride/Dextrose/ Sodium Chloride (KCl Inj/D5W-NS 1000 ml Inj) 1,015 ml @ 60 mls/hr [id number] IV Last administered on 04/27/17 18:18; Start at 15:00; Stop 04/28/17 at 11:49; Status DC Promethazine HCl (Phenergan Inj) 12.5 mg Q8H PRN IM PERSISTENT NAUSEA Last administered on 04/30/17 04:34; Start 04/26/17 at 13:15; Stop 04/30/17 at 11:28 ; Status DC Allopurinol 300 mg 300 mg DAILY PO Last administered on 05/05/17 08:12; Start 04/27/17 at 09:00; Stop 05/05/17 at 12:10; Status DC Vancomycin HCl 1000 mg/Sodium Chloride 250 ml @ 250 mls/hr [employer]EDING TECHNICIAN IV Last administered on 04/27/17 13:49; Start 04/27/17 at 10:00; Stop 04/30/17 at 09:59 ; Status DC Cefazolin Sodium/ Dextrose (Ancef 2 Gm Premix) 50 ml @ 100 mls/hr ART[employer]EDING TECHNICIAN IV Last administered on 04/27/17 15:42; Start 04/27/17 at 10:00; Stop 04/30/17 at 09:59; Status DC Nifedipine (Procardia Xl) 90 mg DAILY PO Last administered on 05/16/17 11:06; Start 04/28/17 at 09:00 Clonidine (Catapres) 0.1 mg Q12HR PO ; Start 04/27/17 at 21:00; Status UNV Clonidine (Catapres) 0.1 mg Q6H PRN PO SBP>160, DBP>90 Last administered on 08:07; Start 04/27/17 at 15:00 Heparin Sodium (Porcine) (*HEPARIN CENTRAL FLUSH PERIprocedural ONLY) 500 units STK-MED ONCE IV FLUSH Last administered on 04/27/17 14:51; Start 04/27/17 at 14:51; Stop 04/27/17 at 14:52; Status DC Lidocaine/ Epinephrine (Xylocaine-Epi 1%-1:100,000 Inj) 20 ml STK-MED ONCE .ROUTE Last administered on 04/27/17 14:51; Start 04/27/17 at 14:51; Stop at 14:52; Status DC Midazolam HCl (Versed Inj) 5 mg STK-MED ONCE .ROUTE Last administered on 14:52; Start 04/27/17 at 14:52; Stop 04/27/17 at 14:53; Status DC Fentanyl Citrate 250 mcg 250 mcg STK-MED ONCE .ROUTE Last administered on 14:53; Start 04/27/17 at 14:53; Stop 04/27/17 at 14:54; Status DC Sodium Chloride (NS 1000 ml Inj) 1,000 ml @ 100 mls/hr Q10H IV Last administered on 04/29/17 17:55; Start 04/29/17 at 15:00; Stop 04/30/17 at 00:59 ; Status DC Acetaminophen (Tylenol) 650 mg ONCE ONCE PO Last administered on 04/30/17 16: 44; Start 04/30/17 at 13:00; Stop 04/30/17 at 13:01; Status DC Diphenhydramine HCl 50 mg 50 mg ONCE ONCE PO Last administered on 04/30/17 16 :43; Start 04/30/17 at 13:00; Stop 04/30/17 at 13:01; Status DC Rituximab/Sodium Chloride (Rituxan Inj/NS 500 ml Inj) 571.625 ml @ 0 mls/hr ONCE ONCE IV Last administered on 05/01/17 13:15; Start 04/30/17 at 14:00; Stop 04/30/17 at 14:01; Status DC Prednisone 115 mg 115 mg Q12H PO ; Start 04/30/17 at 13:00; Stop 05/01/17 at 11: 21; Status DC Dexamethasone Sodium Phosphate 20 mg/Granisetron HCl 1 mg/Sodium Chloride 56 ml @ 224 mls/hr Q24H IV ; Start 04/30/17 at 15:00; Stop 05/01/17 at 11:26; Status DC Potassium Chloride 100 ml @ 50 mls/hr BOLUS ONCE IV Last administered on 04/30 10:20; Start 04/30/17 at 10:00; Stop 04/30/17 at 11:59; Status DC Etoposide 95.5 mg/ Doxorubicin HCl 19.1 mg/ Vincristine Sulfate 0.764 mg/ Sodium Chloride 515.089 ml @ 21.462 mls/hr Q24H IV ; Start 04/30/17 at 15:00; Stop 05/04/17 at 14:59; Status Hold Cyclophosphamide/ Sodium Chloride (Cytoxan Inj/NS 500 ml Inj) 500 ml @ 500 mls/ hr ONCE ONCE IV ; Start 05/04/17 at 14:00; Stop 05/04/17 at 14:59; Status DC Ondansetron HCl (Zofran Inj) 4 mg Q6HR PRN IV PUSH NAUSEA OR VOMITING Last administered on 05/07/17 10:06; Start 04/30/17 at 11:30 Promethazine HCl (Phenergan Inj) 25 mg Q6H PRN IM NAUSEA OR VOMITING Last administered on 05/01/17 13:27; Start 04/30/17 at 11:30 Acetaminophen/ Hydrocodone Bitart ([place] 5-325 Mg) 1 tab Q6H PRN PO PAIN SCALE 1 TO 10 Last administered on 05/12/17 02:48; Start 04/30/17 at 11:30 Albuterol/ Ipratropium (Duoneb Neb) 1 ampule ONCE ONCE NEB Last administered on 04/30/17 20:16; Start 04/30/17 at 19:45; Stop 04/30/17 at 20:11; Status DC Albuterol/ Ipratropium (Duoneb Neb) 1 ampule Q2HR NEB PRN NEB sob, wheeze; Start 04/30/17 at 20:45; Stop 05/02/17 at 10:14; Status DC Morphine Sulfate (Morphine Inj) 2 mg ONCE ONCE IV PUSH Last administered on 23:36; Start 04/30/17 at 23:30; Stop 04/30/17 at 23:31; Status DC Furosemide (Lasix Inj) 10 mg ONCE ONCE IV PUSH Last administered on 05/01/17 01:01; Start 05/01/17 at 00:00; Stop 05/01/17 at 00:01; Status DC Furosemide (Lasix Inj) 20 mg ONCE ONCE IV PUSH Last administered on 05/01/17 09:09; Start 05/01/17 at 07:45; Stop 05/01/17 at 07:52; Status DC Acetaminophen (Tylenol) 650 mg NOW ONCE PO Last administered on 05/01/17 10: 51; Start 05/01/17 at 10:45; Stop 05/01/17 at 10:46; Status DC Diphenhydramine HCl 50 mg 50 mg NOW ONCE PO Last administered on 05/01/17 10: 51; Start 05/01/17 at 10:45; Stop 05/01/17 at 10:46; Status DC Rituximab/Sodium Chloride (Rituxan Inj/NS 500 ml Inj) 571.625 ml @ 0 mls/hr ONCE ONCE IV ; Start 05/01/17 at 12:00; Stop 05/01/17 at 12:01; Status DC Acetaminophen (Tylenol) 650 mg ONCE ONCE PO ; Start 05/01/17 at 11:30; Stop at 11:31; Status DC Diphenhydramine HCl (Benadryl) 50 mg ONCE ONCE PO ; Start 05/01/17 at 11:30; Stop 05/01/17 at 11:31; Status DC Prednisone 115 mg 115 mg Q12HR PO Last administered on 05/02/17 20:08; Start 05/01/17 at 11:00; Stop 05/05/17 at 21:01; Status DC Dexamethasone Sodium Phosphate/ Granisetron HCl/ Sodium Chloride (Decadron Inj/ Kytril Inj/NS Inj) 56 ml @ 224 mls/hr Q24H IV ; Start 05/01/17 at 11:30; Stop 05/06/17 at 11:44; Status DC Metoclopramide HCl (Reglan Inj) 10 mg Q8HR IV PUSH Last administered on 04:59; Start 05/01/17 at 15:30; Stop 05/09/17 at 19:03; Status DC Pantoprazole Sodium (Protonix) 40 mg DAILY PO Last administered on 05/06/17 08 :17; Start 05/01/17 at 16:00; Stop 05/07/17 at 11:49; Status DC Furosemide (Lasix Inj) 20 mg ONCE ONCE IV PUSH Last administered on 05/01/17 16:14; Start 05/01/17 at 15:30; Stop 05/01/17 at 15:31; Status DC Albuterol/ Ipratropium (Duoneb Neb) 1 ampule BID NEB INH Last administered on 05/02/17 07:47; Start 05/01/17 at 20:00; Stop 05/02/17 at 10:18; Status DC Furosemide (Lasix Inj) 20 mg STAT ONCE IV PUSH Last administered on 05/02/17 08:40; Start 05/02/17 at 08:30; Stop 05/02/17 at 08:37; Status DC Etomidate (Amidate Inj) 20 mg STK-MED ONCE .ROUTE Last administered on 12:48; Start 05/02/17 at 09:23; Stop 05/02/17 at 09:24; Status DC Dextrose (D50w (Vial) Inj) 25 ml UNSCH PRN IV PUSH HYPOGLYCEMIA-SEE COMMENTS; Start 05/02/17 at 10:00; Stop 05/16/17 at 08:09; Status DC Insulin Human Regular (NovoLIN R SUPPLEMENTAL SCALE) 1 Q6HR SQ Last administered on 05/04/17 18:00; Start 05/02/17 at 12:00; Stop 05/16/17 at 08:09 ; Status DC Chlorhexidine Gluconate (Peridex 0.12% Liq) 15 ml BID@08,20 MT Last administered on 05/15/17t 20:00; Start 05/02/17 at 20:00 Magnesium Oxide 800 mg 800 mg UNSCH PRN PO For Magnesium 1.2 - 1.6 mg/dL; Start 05/02/17 at 10:00; Stop 05/03/17 at 13:51; Status DC Magnesium Sulfate 4 gm/Sodium Chloride 100 ml @ 50 mls/hr UNSCH PRN IV For Magnesium 0.9 - 1.1 mg/dL; Start 05/02/17 at 10:00; Stop 05/03/17 at 13:51; Status DC Magnesium Sulfate 2 gm/Sodium Chloride 100 ml @ 50 mls/hr UNSCH PRN IV For Magnesium 1.2 - 1.6 mg/dL; Start 05/02/17 at 10:00; Stop 05/03/17 at 13:51; Status DC Potassium Chloride 100 ml @ 50 mls/hr Q2H PRN IV For Potassium 2.8 - 3.2 mEq/L ; Start 05/02/17 at 10:00; Stop 05/03/17 at 13:51; Status DC Potassium Chloride 100 ml @ 50 mls/hr Q2H PRN IV For Potassium 3.3 - 3.5 mEq/L ; Start 05/02/17 at 10:00; Stop 05/03/17 at 13:51; Status DC Potassium Chloride 100 ml @ 50 mls/hr Q2H PRN IV For Potassium 2.8 - 3.2 mEq/L ; Start 05/02/17 at 10:00; Stop 05/03/17 at 13:51; Status DC Potassium Chloride (KCl 40 Meq Premix Inj) 100 ml @ 25 mls/hr UNSCH PRN IV For Potassium 3.3 - 3.5 mEq/L; Start 05/02/17 at 10:00; Stop 05/03/17 at 13:51; Status DC Potassium Phosphate (K-Phos) 2,000 mg Q4H PRN PO For Phosphorus < 2.5 mg/dL; Start 05/02/17 at 10:00; Stop 05/03/17 at 13:51; Status DC Potassium Phosphate 2000 mg 2,000 mg UNSCH PRN PO/TUBE SEE LABEL COMMENTS; Start 05/02/17 at 10:00; Stop 05/03/17 at 13:51; Status DC Potassium Phosphate 30 mmol/ Sodium Chloride 260 ml @ 42 mls/hr UNSCH PRN IV SEE LABEL COMMENTS; Start 05/02/17 at 10:00; Stop 05/03/17 at 13:52; Status DC Sodium Phosphate/ Sodium Chloride (Sodium Phosphate Inj/NS 250 ml Inj) 250 ml @ 42 mls/hr UNSCH PRN IV For Phosphorus < 2.5 mg/dL; Start 05/02/17 at 10:00; Stop 05/03/17 at 13:52; Status DC Albuterol/ Ipratropium (Duoneb Neb) 1 ampule Q6HR NEB INH Last administered on 05/06/17 03:23; Start 05/02/17 at 10:00; Stop 05/06/17 at 10:00; Status DC Albuterol/ Ipratropium 1 ampule 1 ampule Q2HR NEB PRN INH WHEEZING Last administered on 05/08/17 08:08; Start 05/02/17 at 10:00 Fentanyl Citrate 250 ml @ 0 mls/hr TITRATE IV Last administered on 05/10/17 05 :36; Start 05/02/17 at 10:00 Propofol (Diprivan 1000 Mg/100ml Inj) 100 ml @ 0 mls/hr TITRATE IV Last administered on 05/10/17 06:54; Start 05/02/17 at 10:00 Iohexol 75 ml 75 ml STK-MED ONCE IV Last administered on 05/02/17 11:31; Start 05/02/17 at 11:31; Stop 05/02/17 at 11:32; Status DC Cefepime HCl 2000 mg/Sodium Chloride 100 ml @ 200 mls/hr Q12H IV Last administered on 05/05/17 02:43; Start 05/02/17 at 15:00; Stop 05/05/17 at 11:53 ; Status DC Vancomycin HCl/ Sodium Chloride (Vancomycin Inj/ NS 250 ml Inj) 250 ml @ 250 mls/hr ONCE ONCE IV Last administered on 05/02/17 16:14; Start 05/02/17 at 15 :00; Stop 05/02/17 at 15:59; Status DC Heparin Sodium (Porcine) (Heparin Inj) 5,000 units ONCE ONCE IV Last administered on 05/02/17 15:35; Start 05/02/17 at 16:00; Stop 05/02/17 at 16:01 ; Status DC Miscellaneous Information Patient in critical care unit? Ass... [id number] .XX Last administered on 05/02/17 17:30; Start 05/02/17 at 17:15 Chlorhexidine Gluconate (Chlorhexidine 2% Cloth) 3 pack DAILY@04 TOPICAL Last administered on 05/07/17 03:45; Start 05/03/17 at 04:00; Stop 05/07/17 at 04:01 ; Status DC Chlorhexidine Gluconate 3 pack 3 pack UNSCH PRN TOPICAL HYGIENIC CARE; Start at 17:15; Stop 05/07/17 at 17:08; Status DC Alteplase, Recombinant/ Syringe / Bag (Activase Drip/ Syringe/Bag) 49.9999 ml @ 50 mls/hr ONCE ONCE IV Last administered on 05/02/17 19:58; Start 05/02/17 at 19:15; Stop 05/02/17 at 20:14; Status DC Sodium Chloride (NS Inj) 30 ml ONCE ONCE IVF Last administered on 05/02/17 19 :15; Start 05/02/17 at 19:15; Stop 05/02/17 at 19:28; Status DC Miscellaneous Medication Thrombolysis plan for submass... ONCE ONCE OTHER Last administered on 05/02/17 19:15; Start 05/02/17 at 19:15; Stop 05/02/17 at 19:28; Status DC Heparin Sodium/ Dextrose 250 ml @ 0 mls/hr TITRATE IV Last administered on 06:24; Start 05/03/17 at 02:00 Epinephrine HCl/ Dextrose (Adrenalin (1:1000) Inj/D5W Inj) 250 ml @ 30 mls/hr TITRATE IV Last administered on 05/04/17 09:43; Start 05/03/17 at 10:15; Stop 05/07/17 at 16:44; Status DC Calcium Acetate 2668 mg 2,668 mg TID PO Last administered on 05/16/17 11:05; Start 05/03/17 at 09:00 Epoprostenol Sodium/Sodium Chloride (Flolan (30,000 Ng/ml) Neb/NS Inj) 100 ml @ 8 mls/hr Q8H NEB Last administered on 05/04/17 00:17; Start 05/03/17 at 09:00 ; Stop 05/04/17 at 14:14; Status DC Lidocaine HCl 50 ml 50 ml STK-MED ONCE .ROUTE ; Start 05/03/17 at 12:21; Stop at 12:22; Status DC Epoprostenol Sodium 40 ml/ Sodium Chloride 100 ml @ 8 mls/hr Q8H NEB Last administered on 05/06/17 06:04; Start 05/04/17 at 15:00; Stop 05/06/17 at 12:43 ; Status DC Calcium Gluconate 2 gm/Dextrose 120 ml @ 120 mls/hr ONCE ONCE IV Last administered on 05/04/17 20:00; Start 05/04/17 at 20:00; Stop 05/04/17 at 20:59 ; Status DC Cefepime HCl/ Sodium Chloride (Maxipime Inj/NS Inj) 100 ml @ 200 mls/hr Q24H IV Last administered on 05/08/17 01:36; Start 05/06/17 at 03:00; Stop at 23:00; Status DC Allopurinol (Zyloprim) 200 mg DAILY PO Last administered on 05/16/17 11:06; Start 05/06/17 at 09:00 Artificial Tears (Tears Naturale Opth Soln) 1 drop Q8H EACH EYE Last administered on 05/07/17 10:06; Start 05/05/17 at 18:00; Stop 05/07/17 at 12:11 ; Status DC Fentanyl Citrate (fentaNYL INJ) 100 mcg STK-MED ONCE IV ; Start 04/22/17 at 12: 00; Stop 05/06/17 at 12:46; Status DC Propofol (Diprivan 200 Mg/20 ml Inj) 200 mg STK-MED ONCE IV ; Start 04/22/17 at 12:00; Stop 05/06/17 at 12:46; Status DC Phenylephrine HCl (Neosynephrine/ NS 1000 Mcg/10ml Syr) 1,000 mcg STK-MED ONCE IV ; Start 04/22/17 at 12:00; Stop 05/06/17 at 12:47; Status DC Ondansetron HCl (Zofran Inj) 4 mg STK-MED ONCE IV PUSH ; Start 04/22/17 at 12:00 ; Stop 05/06/17 at 12:47; Status DC Pantoprazole Sodium (Protonix Inj) 40 mg DAILY IV PUSH Last administered on 05/16 11:07; Start 05/07/17 at 12:00 Artificial Tears 1 applic 1 applic Q8H EACH EYE Last administered on 05/15/17 17:49; Start 05/07/17 at 18:00 Sodium Chloride (NS 1000 ml Inj) 1,000 ml @ 0 mls/hr TITRATE PRN IV WITH DIALYSIS Last administered on 05/11/17 18:29; Start 05/07/17 at 18:00 Heparin Sodium (Porcine) 8000 units 8,000 units UNSCH PRN IV FLUSH WITH DIALYSIS; Start 05/07/17 at 18:00 Sodium Chloride 1,000 ml @ 200 mls/hr Q5H PRN IV WITH DIALYSIS; Start 05/07/17 at 18:00 Sodium Chloride (NS 250 ml Inj) 200 ml @ 0 mls/hr UNSCH PRN IV WITH DIALYSIS; Start 05/07/17 at 18:00 Mannitol (Mannitol Inj) 12.5 gm UNSCH PRN IV WITH DIALYSIS; Start 05/07/17 at 18:00 Albumin Human (Albumin 25% Inj) 25 gm UNSCH PRN IV WITH DIALYSIS; Start at 18:00 Sodium Chloride (NS Flush) 5 ml UNSCH PRN IV FLUSH WITH DIALYSIS; Start at 18:00 Heparin Sodium (Porcine) (Heparin Inj) Dwell Heparin to f... UNSCH PRN OTHER WITH DIALYSIS Last administered on 05/15/17 10:50; Start 05/07/17 at 18:00 Gentamicin Sulfate (Gentamicin (Dialysis) Inj) 10 mg UNSCH PRN OTHER WITH DIALYSIS Last administered on 05/15/17 10:51; Start 05/07/17 at 18:00 Gelatin (Gelfoam 12 Mm/7 Mm Top) 1 foam UNSCH PRN TOPICAL WITH DIALYSIS; Start 05/07/17 at 18:00 Ondansetron HCl (Zofran Inj) 4 mg UNSCH PRN IV NAUSEA OR VOMITING; Start at 18:00 Acetaminophen (Tylenol) 650 mg UNSCH X1 PRN PO WITH DIALYSIS Last administered on 05/08/17 10:07; Start 05/07/17 at 18:00; Stop 05/14/17 at 17:59; Status DC Diphenhydramine HCl (Benadryl) 25 mg UNSCH PRN PO WITH DIALYSIS; Start at 18:00 Nitroglycerin (Nitrostat Sl) 0.4 mg UNSCH PRN SL WITH DIALYSIS; Start 05/07/17 at 18:00 Clonidine (Catapres) 0.1 mg UNSCH PRN PO WITH DIALYSIS; Start 05/07/17 at 18:00 Polyethylene Glycol (Miralax) 17 gm DAILY PO Last administered on 05/10/17 07: 52; Start 05/08/17 at 09:00; Stop 05/13/17 at 17:16; Status DC Lactulose (Lactulose Liq) 30 ml BID PO Last administered on 05/10/17 07:51; Start 05/08/17 at 09:00; Stop 05/13/17 at 17:16; Status DC Bisacodyl (Dulcolax Supp) 10 mg DAILY PRN RECTAL CONSTIPATION; Start 05/08/17 at 08:15; Stop 05/08/17 at 08:16; Status DC Diatrizoate Meglum/ Diatrizoate Sod ( Gastroview Liq) 18 ml ONCE ONCE PO Last administered on 05/09/17 16:42; Start 05/09/17 at 14:15; Stop 05/09/17 at 14:16; Status DC Heparin Sodium (Porcine) 300 units 300 units NOW ONCE IV ; Start 05/09/17 at 18 :30; Stop 05/09/17 at 18:31; Status DC Potassium Chloride (KCl 20 Meq Premix Inj) 100 ml @ 50 mls/hr BOLUS ONCE IV Last administered on 05/10/17 13:31; Start 05/10/17 at 12:30; Stop 05/10/17 at 14:29; Status DC Sucralfate 1 gm 1 gm Q8HR PO Last administered on 05/13/17 04:46; Start at 14:00; Stop 05/13/17 at 13:59; Status DC Potassium Chloride (KCl 20 Meq Premix Inj) 100 ml @ 50 mls/hr ONCE ONCE IV Last administered on 05/11/17 08:54; Start 05/11/17 at 08:30; Stop 05/11/17 at 10:29; Status DC Metronidazole (Flagyl) 500 mg Q8HR PO Last administered on 05/16/17 20:41; Start 05/11/17 at 14:00; Stop 05/25/17 at 12:00 Morphine Sulfate 4 mg 4 mg NOW ONCE IV PUSH Last administered on 05/12/17 09: 58; Start 05/12/17 at 09:45; Stop 05/12/17 at 09:46; Status DC Potassium Chloride (KCl 40 Meq Premix Inj) 100 ml @ 25 mls/hr ONCE ONCE IV Last administered on 05/12/17 13:51; Start 05/12/17 at 13:45; Stop 05/12/17 at 17: 44; Status DC Vancomycin HCl (VANCOMYCIN for oral use only) 500 mg QID PO Last administered on 05/16/17 20:41; Start 05/13/17 at 13:00; Stop 05/25/17 at 23:00 Dronabinol (Marinol) 5 mg BID@11,16 PO Last administered on 05/16/17 12:20; Start 05/14/17 at 16:00 Heparin Sodium (Porcine) (*HEPARIN INJ Periprocedural ONLY) 10,000 units STK- MED ONCE .ROUTE Last administered on 05/15/17 15:50; Start 05/15/17 at 15:24; Stop 05/15/17 at 15:25; Status DC Sodium Chloride (NS Flush) UNSCH PRN IVF SEE PROTOCOL; Start 05/15/17 at 16:00 Heparin Sodium (Porcine) (Heparin Inj) UNSCH PRN IV FLUSH SEE PROTOCOL; Start 05/15/17 at 16:00 Iohexol (Omnipaque 350 Inj) 10 ml STK-MED ONCE IV Last administered on 15:50; Start 05/15/17 at 20:42; Stop 05/15/17 at 20:43; Status DC Potassium Chloride (KCl) 30 meq ONCE ONCE PO Last administered on 05/16/17 11: 06; Start 05/16/17 at 09:00; Stop 05/16/17 at 09:01; Status DC Dexamethasone (Decadron) 40 mg ONCE ONCE PO ; Start 05/16/17 at 13:00; Stop 05/16 at 13:01; Status DC A/P Assessment and Plan A/P Acute Hypoxic Respiratory Failure-resolved --stable on RA --nebs as needed Acute Submassive Pulmonary Embolism Right Heart Dysfunction Global severe left ventricular systolic dysfunction Cardiogenic Shock-resolved -- 2d echo 05/02: EF 30-35%, RV dysfunction with dilation --Repeat ECHO limited study scheduled on 05/09-RV function appears to have normalized, question of interatrial shunt for which cardiology consulted-d/w Dr. Taveras, recommended that once off anticoagulation, would need to be on ASA and require f/u echo periodically for evaluation. Acute Kidney Injury Hypokalemia -- likely secondary to cardiogenic shock -HD initiated. - Nephrology following, Dr. 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 -Expanded bowel regimen MiraLAX, lactulose, due to site suppository Large Cell B-cell lymphoma Pulmonary Embolism anemia of chronic disease C. difficile colitis -- hematology/oncology following Dr. Connelly-tentative plan to resume CHOP chemotherapy soon. -- continue heparin drip. transition to Coumadin soon- per hematology. --check iron panel --continue Flagyl and Vanco- plan for 14 days- evaluated by ID . continue PT. Prophylaxis: DVT: SCDs, heparin drip GI: protonix Catalina Eller MD May 17, 2017 07:39 Catalina Eller MD May 17, 2017 07:39
[2017-05-17] MEDS ORDERED: POTASSIUM CHLORIDE 10 MEQ CONTROLLED RELEASE TAB PO ONE (07:45)
[2017-05-17] MEDS: CHLORHEXIDINE 0.12% (ORAL KIT) 15 ML CUP MT SCH ×2 (08:00→20:00)
[2017-05-17] MEDS: ALLOPURINOL 100 MG TAB PO SCH (08:56)
[2017-05-17] MEDS: CALCIUM ACETATE 667 MG CAP PO SCH ×3 (08:56→18:00)
[2017-05-17] MEDS: PANTOPRAZOLE SODIUM 40 MG VIAL IV PUSH SCH (08:57)
[2017-05-17] MEDS: NIFEdipine 90 MG SUSTAINED RELEASE TAB PO SCH (08:58)
[2017-05-17] MEDS: VANCOMYCIN 500 MG VIAL (FOR ORAL USE ONLY) PO SCH ×4 (08:59→20:27)
--- NOTE | 2017-05-17 09:54 | HHI.NPPN ---
Subjective History of Present Illness 47-year-old male with no known past medical history who came to the hospital with complaint of nausea, vomiting and abdominal pain on April 18. I was called to see the patient because of elevated BUN and creatinine. The patient had a creatinine of 1.3 on presentation which improved to 0.7 and 0.8, then started increasing for last few days. Additional Remarks No evidence of renal recovery. Needs potassium replacement. Objective Data Data 05/16/17 05/17/17 19:00 07:00 Intake Total 60 ml 360 ml Output Total 325 ml 100 ml Balance -265 ml 260 ml Intake Oral 60 ml 360 ml Output Urine Total 325 ml 100 ml # Voids 0 # Bowel Movements 0 Vital Signs Date Time Temp Pulse Resp B/P Pulse Ox O2 Delivery O2 Flow Rate FiO2 05/17/17 09:43 97.7 70 14 104/63 96 05/17/17 08:00 80 05/17/17 04:00 96.5 68 16 109/64 95 05/17/17 04:00 86 05/17/17 00:00 85 05/17/17 00:00 97.1 85 17 100/60 95 05/16/17 20:10 96 21 05/16/17 20:00 87 05/16/17 20:00 96.8 67 18 104/54 96 05/16/17 16:00 96.4 47 20 120/66 96 05/16/17 12:00 96.4 60 12 116/54 96 05/16/17 09:56 97 21 -: 05/17/17 0615 05/17/17 0615 Physical Exam General Appearance: Malnourished Eyes Eye Exam: Pupils Equal Throat Throat Exam: Oral Mucosa [place] & Moist Pulmonary Resp Exam: Crackles, Rhonchi, Decreased Bases, Diminished Breath Sounds, Poor Inspiratory Effort Cardiology CV Exam: Regular, Normal Sinus Rhythm Gastrointestinal/Abdomen GI Exam: Soft, Non-Tender, Bowel Sounds Present, Distended Extremeties Extremities Exam: Trace Edema Neurologic Neuro Exam: Awake Assessment/Plan Assessment Summary: ALDO/Acute Renal Failure Problem List: (1) Non-Hodgkin lymphoma Plan: Hematology following, need for chemotherapy in the future. (2) Adenopathy (3) Pleural effusion (4) Shortness of breath (5) Pulmonary emboli Plan: on anticoagulation. (6) Acute pancreatitis (7) ALDO (acute kidney injury) Plan: He has become dialysis dependent. Plan Replace potassium. Dialysis tomorrow. Monitor renal function and urine output. Avoid nephrotoxins. Multiple medical problems, alcohol induced pancreatitis. Problem Qualifiers (1) Non-Hodgkin lymphoma: (2) Acute pancreatitis: Qualified Code: K85.20 - Alcohol-induced acute pancreatitis, unspecified complication status Jose R Cazares MD May 17, 2017 09:54
--- NOTE | 2017-05-17 10:23 | PD.ONC.PN ---
Subjective Subjective Remarks Afebrile overnight. patient resting in bed in nad. Nods his head yes when I ask how he feels about chemotherapy. still very fatigued. Objective Data Date Time Temp Pulse Resp B/P Pulse Ox O2 Delivery O2 Flow Rate FiO2 05/17/17 09:43 97.7 70 14 104/63 96 05/17/17 08:00 80 05/17/17 04:00 96.5 68 16 109/64 95 05/17/17 04:00 86 05/17/17 00:00 85 05/17/17 00:00 97.1 85 17 100/60 95 05/16/17 20:10 96 21 05/16/17 20:00 87 05/16/17 20:00 96.8 67 18 104/54 96 05/16/17 16:00 96.4 47 20 120/66 96 05/16/17 12:00 96.4 60 12 116/54 96 05/17/17 05/17/17 05/17/17 06:59 14:59 22:59 Intake Total 120 ml Balance 120 ml Result Diagram: 05/17/1715 05/17/17614 Laboratory Results Laboratory Tests Test 05/16/17 05/16/17 05/17/17 11:06 20:55 06:15 Activated Partial 47.1 SEC 47.6 SEC 50.4 SEC Thromboplast Time White Blood Count 5.6 TH/MM3 Red Blood Count 2.64 MIL/MM3 Hemoglobin 7.7 GM/DL Hematocrit 22.6 % Mean Corpuscular Volume 85.5 FL Mean Corpuscular Hemoglobin 29.1 PG Mean Corpuscular Hemoglobin 34.0 % Concent Red Cell Distribution Width 16.7 % Platelet Count 317 TH/MM3 Mean Platelet Volume 6.6 FL Neutrophils (%) (Auto) 82.1 % Lymphocytes (%) (Auto) 8.9 % Monocytes (%) (Auto) 7.6 % Eosinophils (%) (Auto) 0.5 % Basophils (%) (Auto) 0.9 % Neutrophils # (Auto) 4.6 TH/MM3 Lymphocytes # (Auto) 0.5 TH/MM3 Monocytes # (Auto) 0.4 TH/MM3 Eosinophils # (Auto) 0.0 TH/MM3 Basophils # (Auto) 0.0 TH/MM3 CBC Comment DIFF FINAL Differential Comment Sodium Level 132 MEQ/L Potassium Level 2.7 MEQ/L Chloride Level 94 MEQ/L Carbon Dioxide Level 23.6 MEQ/L Anion Gap 14 MEQ/L Blood Urea Nitrogen 40 MG/DL Creatinine 7.06 MG/DL Estimat Glomerular Filtration 10 ML/MIN Rate Random Glucose 74 MG/DL Uric Acid 6.8 MG/DL Calcium Level 7.6 MG/DL Total Bilirubin 0.7 MG/DL Aspartate Amino Transf 8 U/L (AST/SGOT) Alanine Aminotransferase LESS THAN 6 U/L (ALT/SGPT) Alkaline Phosphatase 100 U/L Lactate Dehydrogenase 303 U/L Total Protein 5.4 GM/DL Albumin 2.0 GM/DL Administered Medications Medications (Trade) Dose Ordered Sig/Shyla Route PRN Reason Start Time Stop Time Status Last Admin Dose Admin Sodium Chloride (NS Flush) 2 ml UNSCH PRN IV FLUSH FLUSH AFTER USING IV ACCESS 04/18/17 17:30 04/21/17 22:27 Heparin Sodium (Porcine) (Heparin Inj) 5,000 units Q8HR SQ 04/19/17 14:00 Hold 05/02/17 12:46 Hydralazine HCl (Apresoline Inj) 10 mg Q6HR PRN IV PUSH SBP>160, DBP>90 04/21/17 17:00 04/27/17 10:15 Nifedipine (Procardia Xl) 90 mg DAILY PO 04/28/17 09:00 05/17/17 08:58 Clonidine (Catapres) 0.1 mg Q6H PRN PO SBP>160, DBP>90 04/27/17 15:00 04/29/17 08:07 Ondansetron HCl (Zofran Inj) 4 mg Q6HR PRN IV PUSH NAUSEA OR VOMITING 04/30/17 11:30 05/07/17 10:06 Promethazine HCl (Phenergan Inj) 25 mg Q6H PRN IM NAUSEA OR VOMITING 04/30/17 11:30 05/01/17 13:27 Acetaminophen/ Hydrocodone Bitart (Dresher 5-325 Mg) 1 tab Q6H PRN PO PAIN SCALE 1 TO 10 04/30/17 11:30 05/12/17 02:48 Chlorhexidine Gluconate 15 ml 15 ml BID@08,20 MT 05/02/17 20:00 05/15/17 20:00 Fentanyl Citrate 250 ml @ 0 mls/hr TITRATE IV 05/02/17 10:00 05/10/17 05:36 Propofol (Diprivan 1000 Mg/100ml Inj) 100 ml @ 0 mls/hr TITRATE IV 05/02/17 10:00 05/10/17 06:54 Miscellaneous Information Patient in critical care unit? Ass... Q361D .XX 05/02/17 17:15 05/02/17 17:30 Heparin Sodium/ Dextrose (Heparin-D5W Inj) 250 ml @ 0 mls/hr TITRATE IV 05/03/17 02:00 05/17/17 06:24 Calcium Acetate (Phoslo) 2,668 mg TID PO 05/03/17 09:00 05/17/17 08:56 Allopurinol (Zyloprim) 200 mg DAILY PO 05/06/17 09:00 05/17/17 08:56 Pantoprazole Sodium (Protonix Inj) 40 mg DAILY IV PUSH 05/07/17 12:00 05/16/17 11:07 Artificial Tears 1 applic 1 applic Q8H EACH EYE 05/07/17 18:00 05/15/17 17:49 Sodium Chloride (NS 1000 ml Inj) 1,000 ml @ 0 mls/hr TITRATE PRN IV WITH DIALYSIS 05/07/17 18:00 05/11/17 18:29 Heparin Sodium (Porcine) (Heparin Inj) Dwell Heparin to f... UNSCH PRN OTHER WITH DIALYSIS 05/07/17 18:00 05/15/17 10:50 Gentamicin Sulfate (Gentamicin (Dialysis) Inj) 10 mg UNSCH PRN OTHER WITH DIALYSIS 05/07/17 18:00 05/15/17 10:51 Metronidazole (Flagyl) 500 mg Q8HR PO 05/11/17 14:00 05/25/17 12:00 05/16/17 20:41 Vancomycin HCl (VANCOMYCIN for oral use only) 500 mg QID PO 05/13/17 13:00 05/25/17 23:00 05/16/17 20:41 Dronabinol (Marinol) 5 mg BID@11,16 PO 05/14/17 16:00 05/16/17 12:20 Objective Remarks GENERAL: chronically ill male lying supine in bed lethargic. SKIN: Warm and dry. HEAD: Normocephalic. EYES: No injection or drainage. NECK: Supple, trachea midline. CARDIOVASCULAR: Regular rate and rhythm RESPIRATORY: Breath sounds equal bilaterally. No accessory muscle use. GASTROINTESTINAL: Abdomen soft, non-tender, nondistended. EXTREMITIES: No cyanosis, or edema. NEUROLOGICAL: aox3. normal speech. moving all extremities. Assessment/Plan Problem List: (1) Non-Hodgkin lymphoma Status: Acute Plan: --Has aggressive triple hit lymphoma. --Received Rituxan x1. --Neck adenopathy relatively stable. --plan to give CHOP chemotherapy (2) Pulmonary emboli Status: Acute Plan: --on heparin gtt-->will bridge to coumadin once tolerating meals --CTA showed large PE --s/p tpa therapy on 05.02. now on heparin gtt. (3) ALDO (acute kidney injury) Status: Acute Plan: Renal function has not recovered. Remains on HD. Minimal urine output. (4) Normocytic anemia Status: Acute Plan: --multifactorial due to chronic disease, renal failure --monitor and transfuse as needed (5) C. difficile colitis Status: Acute Plan: --on PO Vanco Assessment 47y/o male admitted with pancreatitis, found to have NHL. Plan 1. continue heparin gtt 2. monitor CBC 3. start CHOP chemotherapy tomorrow after dialysis. Attending Statement The exam, history, and the medical decision-making described in the above note were completed with the assistance of the mid-level provider. I reviewed and agree with the findings presented. I attest that I had a [id number] encounter with the patient on the same day, and personally performed and documented my assessment and findings in the medical record. Seems stronger today. Hgb stable. Neck mass stable. Plan to give him CHOP tomorrow after the dialysis. Problem Qualifiers (1) Non-Hodgkin lymphoma: Brenda Platt May 17, 2017 10:23 Ruslan Connelly MD May 17, 2017 11:10
[2017-05-17 11:24] LABS: TRANSFERRIN IRON PROFILE 117 MG/DL (200-360)
[2017-05-17 11:26] LABS: FERRITIN 1352 NG/ML (26-388)
[2017-05-17] MEDS: DRONABINOL 5 MG CAP PO SCH ×2 (11:26→16:53)
--- NOTE | 2017-05-17 12:54 | HHI.GIFU ---
Subjective Remarks Resting in bed in no apparent distress. No new complaints. (Kiara Jaeger) Objective Vitals I&O Vital Signs Date Time Temp Pulse Resp B/P Pulse Ox O2 Delivery O2 Flow Rate FiO2 05/17/17 12:04 82 05/17/17 09:43 97.7 70 14 104/63 96 05/17/17 08:00 80 05/17/17 04:00 96.5 68 16 109/64 95 05/17/17 04:00 86 05/17/17 00:00 85 05/17/17 00:00 97.1 85 17 100/60 95 05/16/17 20:10 96 21 05/16/17 20:00 87 05/16/17 20:00 96.8 67 18 104/54 96 05/16/17 16:00 96.4 47 20 120/66 96 I/O 05/16/17 05/16/17 05/16/17 05/17/17 05/17/17 05/17/17 07:00 15:00 23:00 07:00 15:00 23:00 Intake Total 240 ml 60 ml 240 ml 120 ml Output Total 200 ml 325 ml 100 ml Balance 40 ml -265 ml 140 ml 120 ml Intake Oral 240 ml 60 ml 240 ml 120 ml Output Urine Total 200 ml 325 ml 100 ml # Voids 0 # Bowel Movements 0 Laboratory Laboratory Tests Test 05/16/17 05/17/17 05/17/17 20:55 06:15 10:16 Activated Partial 47.6 50.4 Thromboplast Time White Blood Count 5.6 Red Blood Count 2.64 Hemoglobin 7.7 Hematocrit 22.6 Mean Corpuscular Volume 85.5 Mean Corpuscular Hemoglobin 29.1 Mean Corpuscular Hemoglobin 34.0 Concent Red Cell Distribution Width 16.7 Platelet Count 317 Mean Platelet Volume 6.6 Neutrophils (%) (Auto) 82.1 Lymphocytes (%) (Auto) 8.9 Monocytes (%) (Auto) 7.6 Eosinophils (%) (Auto) 0.5 Basophils (%) (Auto) 0.9 Neutrophils # (Auto) 4.6 Lymphocytes # (Auto) 0.5 Monocytes # (Auto) 0.4 Eosinophils # (Auto) 0.0 Basophils # (Auto) 0.0 CBC Comment DIFF FINAL Differential Comment Sodium Level 132 Potassium Level 2.7 Chloride Level 94 Carbon Dioxide Level 23.6 Anion Gap 14 Blood Urea Nitrogen 40 Creatinine 7.06 Estimat Glomerular Filtration 10 Rate Random Glucose 74 Uric Acid 6.8 Calcium Level 7.6 Total Bilirubin 0.7 Aspartate Amino Transf 8 (AST/SGOT) Alanine Aminotransferase LESS THAN 6 (ALT/SGPT) Alkaline Phosphatase 100 Lactate Dehydrogenase 303 Total Protein 5.4 Albumin 2.0 Iron Level 46 Total Iron Binding Capacity 164 Percent Iron Saturation 28.1 Ferritin 1352 Imaging Last Impressions Chest X-Ray 05/16/17599 Signed Impressions: Service Date/Time: Tuesday, May 16, 2017 05:38 - CONCLUSION: 1. Bilateral lower lobe atelectasis versus pneumonia. Bilateral effusions. There has been no significant change when compared to the prior exam. Jadon Carroll MD Abdomen X-Ray 05/15/17599 Draft Impressions: Service Date/Time: Monday, May 15, 2017 04:29 - CONCLUSION: Findings of mild small bowel ileus. There has been no significant change when compared to the prior exam. Jadon Carroll MD Abdomen/Pelvis CT 05/09/17 0000 Signed Impressions: Service Date/Time: Tuesday, May 09, 2017 21:16 - CONCLUSION: 1. Diffusely distended loops of small bowel down to the cecum suggest ileus. 2. Evidence of mesenteric and retroperitoneal adenopathy. 3. Large bilateral pleural effusions , moderate amount of free fluid in the pelvis and mild ascites in the upper abdomen. 4. Abnormal appearance to the parenchyma of the right kidney with patchy areas of hyperdensity in a mosaic pattern. This of uncertain significance. The patient had iodinated contrast for a CT pulmonary angiogram 7 days ago; this could potentially represent residual parenchymal contrast which would be nonspecific, but raises the possibility of either obstruction or renal infarctions. Bryon Evans MD Renal Ultrasound 05/05/17 0000 Signed Impressions: Service Date/Time: Friday, May 05, 2017 20:06 - CONCLUSION: 1. Kidneys are borderline echogenic which can be seen with medical renal disease. 2. No evidence of hydronephrosis. 3. Abdominal ascites. 4. Multiple dilated bowel loops. 5. Bilateral pleural effusions. Tray Patel MD Head CT 05/03/17 0000 Signed Impressions: Service Date/Time: Wednesday, May 03, 2017 17:22 - CONCLUSION: No acute intracranial disease. No hemorrhage seen. Tray Patel MD CT Angiography 05/02/17 0000 Signed Impressions: Service Date/Time: Tuesday, May 02, 2017 11:10 - CONCLUSION: 1. There is pulmonary embolus in the right pulmonary artery, right upper lobe and lower lobe branches. 2. Resorption of previously seen gas in the left axilla with fluid collection at this site with postprocedural change and possibly postprocedural hemorrhage not significantly changed in size. 3. Interval development of right lung airspace process may represent postobstructive pneumonia and there is mucus within the trachea not present yesterday. 4. Right pleural effusion is smaller and left pleural effusion is larger. 5. No change in bulky adenopathy. Leonor Chavez MD Upper Extremity Ultrasound 04/30/17 0000 Signed Impressions: Service Date/Time: April 12:25 - CONCLUSION: There some superficial thrombosis of a vein in the forearm. The deep venous system is patent. Large fluid collection left axilla. Significant soft tissue edema throughout the upper arm. Rinku Hillman MD Thoracentesis Ultrasound 04/30/17 0000 Signed Impressions: Service Date/Time: April 12:14 - CONCLUSION: Uncomplicated ultrasound guided thoracentesis. Tray Patel MD Port Line Insertion 04/27/17 0000 Signed Impressions: Service Date/Time: Thursday, April 27, 2017 14:56 - CONCLUSION: 1. Bulky bilateral lower cervical lymphadenopathy. 2. Uncomplicated ultrasound and fluoroscopic guided implanted central venous port catheter placement as described in detail above. An 8 [place] Power port was placed. Liang Peralta MD Bone Biopsy CT 04/27/17 0000 Signed Impressions: Service Date/Time: Thursday, April 27, 2017 16:22 - CONCLUSION: 1. Uncomplicated CT guided bone marrow aspirate. 2. Uncomplicated CT guided bone marrow biopsy. Tray Patel MD Chest CT 04/25/17 0000 Signed Impressions: Service Date/Time: Wednesday, April 26, 2017 19:00 - CONCLUSION: The right pleural effusion is slightly larger on the left side has not changed. Extensive bulky adenopathy as before and malignancies such as lymphoma is suspected. Leonor Chavez MD Gall Bladder Ultrasound 04/22/17 0000 Signed Impressions: Service Date/Time: Saturday, April 22, 2017 07:35 - CONCLUSION: Small liver with focal abdomen only incompletely evaluated. Large right pleural effusion. effusion. Kirk Briceño MD FACR Abdomen CT 04/20/17 0000 Signed Impressions: Service Date/Time: Thursday, April 20, 2017 19:40 - CONCLUSION: Limited exam because of lack of intravenous contrast. Lymphoma is suspected. Pathological diagnosis could be obtained with ultrasound biopsy of the cervical, axillary or inguinal adenopathy. Kirk Briceño MD FACR Physical Exam HEENT: PERRLA. Normocephalic; atraumatic; no jaundice. CHEST: CTA CARDIAC: RRR ABDOMEN: Soft, nondistended, nontender; no hepatosplenomegaly; bowel sounds active EXTREMITIES: No clubbing, cyanosis, edema SKIN: Normal; no rash; no jaundice. 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 (Kiara Jaeger) Assessment and Plan Plan ASSESSMENT - Abdominal distention, emesis - ileus KUB 05/15/17--Findings of mild small bowel ileus. There has been no significant change when compared to the prior exam KUB 05/11/17--Showing mod to severe ileus; fu KUB 8- no significant change from previous. KUB 05/08/17--Air-filled mildly dilated loops of small bowel suggesting ileus or partial small bowel obstruction. Abdomen/Pelvis CT 05/09/17-- 1. Diffusely distended loops of small bowel down to the cecum suggest ileus. 2. Evidence of mesenteric and retroperitoneal adenopathy. 3. Large bilateral pleural effusions, moderate amount of free fluid in the pelvis and mild ascites in the upper abdomen. 4. Abnormal appearance to the parenchyma of the right kidney with patchy areas of hyperdensity in a mosaic pattern. This of uncertain significance. The patient had iodinated contrast for a CT pulmonary angiogram 7 days ago; this could potentially represent residual parenchymal contrast which would be nonspecific, but raises the possibility of either obstruction or renal infarctions. General surgery following. - C diff - pos tox c diff PCR. On Flagyl. Diarrhea improving - Anemia- No active bleeding reported. today, 7.7/22.6 - Leukocytosis - improving. WBC 5.6 - Pleural effusions- Pulmonology on the case - Acute hypoxic respiratory failure, extubated. Chest X-Ray 05/10/17--Tubes and catheters are in good position. Bilateral pleural effusions persist. Right paratracheal stripe widening is unchanged - PE, ALDO on HD, b cell lymphoma - per attending PLAN - RUBENS - Continue Flagyl - Monitor HH, transfuse as needed - Supportive care - Further recommendations to follow based on results of above Patient seen and examined by Dr. Park and myself and this note is written on her behalf. (Kiara Jaeger) Physician Comments await rubber attacher evaluation-calorie tray count (Daily Park MD) Kiara Jaeger May 17, 2017 12:54 Daily Park MD May 17, 2017 14:44
[2017-05-17] MEDS ORDERED: POTASSIUM CHLORIDE 20 MEQ CONTROLLED RELEASE TAB PO ONE (13:00)
--- NOTE | 2017-05-17 16:17 | HHI.PR ---
Subjective Remarks Stable No SOB at rest.. Less arm swelling. Off o2 now NO chest pain. No fever. On Chemo. and on anticoagulants Objective Vital Signs Date Time Temp Pulse Resp B/P Pulse Ox O2 Delivery O2 Flow Rate FiO2 05/17/17 13:07 96.7 77 14 100/61 97 05/17/17 12:04 82 05/17/17 09:43 97.7 70 14 104/63 96 05/17/17 08:00 80 05/17/17 04:00 96.5 68 16 109/64 95 05/17/17 04:00 86 05/17/17 00:00 85 05/17/17 00:00 97.1 85 17 100/60 95 05/16/17 20:10 96 21 05/16/17 20:00 87 05/16/17 20:00 96.8 67 18 104/54 96 I/O 05/16/17 05/16/17 05/16/17 05/17/17 05/17/17 05/17/17 07:00 15:00 23:00 07:00 15:00 23:00 Intake Total 240 ml 60 ml 240 ml 120 ml 442 ml Output Total 200 ml 325 ml 100 ml Balance 40 ml -265 ml 140 ml 120 ml 442 ml Intake Oral 240 ml 60 ml 240 ml 120 ml 442 ml Output Urine Total 200 ml 325 ml 100 ml # Voids 0 0 # Bowel Movements 0 0 Result Diagram: 05/17/17 0615 05/17/17 0615 Objective Remarks GENERAL: This is a mid aged A/A male , well-developed patient alert . HEENT: Throat clear. CARDIOVASCULAR: Regular rate and rhythm without murmurs, gallops, or rubs. RESPIRATORY: diminished breath sounds bilaterally. Crackles right base GASTROINTESTINAL: Abdomen soft, non-tender,nondistended. + bowel sounds MUSCULOSKELETAL: Extremities show 2 + edema of arms. NEURO: awake and responds well.Moves all. Assessment and Plan Assessment and Plan ASSESSMENT 1. Acute kidney injury. 2. Respiratory failure. 3. Acute Pulmonary embolism. 4. Non-Hodgkin's lymphoma. 5. Anemia. 6. Hyperphosphatemia. Plan : 1. D/c o2 2. D/C Nebs 3. Anticoagulation as Ordered. 4.Albuterol HFA , 2 puffs qid prn 5. IS at bedside q3h 6. PFT on Thursday 7. PT and OT Con Pierre MD May 17, 2017 16:17
[2017-05-18] VITALS (8 sets, daily range): BP systolic 102–118; BP diastolic 56–67; PULSE 72–95; RESP 16–18; TEMP 96.8–97.1; O2SAT 93–98
[2017-05-18] MEDS: ARTIFICIAL TEARS OPTH OINT 3.5 APPLIC/3.5 GM TUBO EACH EYE SCH ×3 (02:00→17:03)
[2017-05-18] MEDS: metroNIDAZOLE 500 MG TAB PO SCH ×3 (06:00→21:43)
[2017-05-18 07:25] LABS: BASOPHIL # 0.1 TH/MM3 (0-0.2); BASOPHIL % 1.1 % (0.0-2.0); EOSINOPHIL % 0.6 % (0.0-4.0); HEMATOCRIT 22.1 % (39.0-51.0); HEMO FLAGS DIFF FINAL; LYMPH % 9.3 % (9.0-44.0); LYMPHOCYTE # 0.5 TH/MM3 (1.0-4.8); MEAN CELL VOLUME 85.8 FL (80.0-100.0); MEAN CORPUSCULAR HEMOGLOBIN 29.8 PG (27.0-34.0); MEAN CORPUSCULAR HGB CONC 34.8 % (32.0-36.0); MONO % 8.1 % (0.0-8.0); NEUT % 80.9 % (16.0-70.0); PLATELET COUNT 321 TH/MM3 (150-450); RED BLOOD COUNT 2.58 MIL/MM3 (4.50-5.90); RED CELL DISTRIBUTION WIDTH 17.2 % (11.6-17.2)
[2017-05-18 07:27] LABS: APTT (PATIENT) 56.6 SEC (24.3-30.1)
[2017-05-18] MEDS: HEPARIN-D5W 25,000 U/250 ML 250 ML IV SCH (07:49)
[2017-05-18 07:51] LABS: ALT (GPT) 6 U/L (12-78); ANION GAP 16 MEQ/L (5-15); AST (GOT) 11 U/L (15-37); BICARBONATE 23.5 MEQ/L (21.0-32.0); BLOOD UREA NITROGEN 41 MG/DL (7-18); CHLORIDE 93 MEQ/L (98-107); GLOMERULAR FILTRATION RATE 10 ML/MIN (>89); LDH SERUM 347 U/L (87-241); POTASSIUM 3.1 MEQ/L (3.5-5.1); SODIUM (NA) 132 MEQ/L (136-145); URIC ACID 7.4 MG/DL (2.6-7.2)
[2017-05-18 07:53] LABS: ALKALINE PHOSPHATASE 95 U/L (45-117); TOTAL BILIRUBIN ADULT 0.7 MG/DL (0.2-1.0)
--- NOTE | 2017-05-18 07:53 | HHI.PR ---
Subjective Remarks in no acute distress. denies pain. no fever. d/w the RN and no acute issues over night. Objective Vitals Vital Signs Date Time Temp Pulse Resp B/P Pulse Ox O2 Delivery O2 Flow Rate FiO2 05/18/17 04:00 81 05/18/17 04:00 96.8 78 16 118/56 98 05/18/17 00:16 97 05/18/17 00:00 81 05/18/17 00:00 96.8 72 16 110/66 97 05/17/17 20:00 82 05/17/17 20:00 97.0 77 16 99/61 97 05/17/17 16:00 78 05/17/17 16:00 97.5 74 18 96/54 97 05/17/17 13:07 96.7 77 14 100/61 97 05/17/17 12:04 82 05/17/17 09:43 97.7 70 14 104/63 96 05/17/17 08:00 80 I/O 05/17/17 05/17/17 05/17/17 05/18/17 05/18/17 05/18/17 07:00 15:00 23:00 07:00 15:00 23:00 Intake Total 120 ml 442 ml 0 ml 25 ml Output Total 0 ml 100 ml Balance 120 ml 442 ml 0 ml -75 ml Intake Oral 120 ml 442 ml 0 ml 25 ml Output Urine Total 0 ml 100 ml # Voids 0 # Bowel Movements 0 Result Diagram: 05/18/17 0610 05/17/17 0615 Imaging Last Impressions Chest X-Ray 05/16/17 0600 Signed Impressions: Service Date/Time: Tuesday, May 16, 2017 05:38 - CONCLUSION: 1. Bilateral lower lobe atelectasis versus pneumonia. Bilateral effusions. There has been no significant change when compared to the prior exam. Jadon Carroll MD Abdomen X-Ray 05/15/17 0600 Draft Impressions: Service Date/Time: Monday, May 15, 2017 04:29 - CONCLUSION: Findings of mild small bowel ileus. There has been no significant change when compared to the prior exam. Jadon Carroll MD Abdomen/Pelvis CT 05/09/17 0000 Signed Impressions: Service Date/Time: Tuesday, May 09, 2017 21:16 - CONCLUSION: 1. Diffusely distended loops of small bowel down to the cecum suggest ileus. 2. Evidence of mesenteric and retroperitoneal adenopathy. 3. Large bilateral pleural effusions , moderate amount of free fluid in the pelvis and mild ascites in the upper abdomen. 4. Abnormal appearance to the parenchyma of the right kidney with patchy areas of hyperdensity in a mosaic pattern. This of uncertain significance. The patient had iodinated contrast for a CT pulmonary angiogram 7 days ago; this could potentially represent residual parenchymal contrast which would be nonspecific, but raises the possibility of either obstruction or renal infarctions. Bryon Evans MD Renal Ultrasound 05/05/17 Signed Impressions: Service Date/Time: Friday, May 05, 2017 20:06 - CONCLUSION: 1. Kidneys are borderline echogenic which can be seen with medical renal disease. 2. No evidence of hydronephrosis. 3. Abdominal ascites. 4. Multiple dilated bowel loops. 5. Bilateral pleural effusions. Tray Patel MD Head CT 05/03/17 Signed Impressions: Service Date/Time: Wednesday, May 03, 2017 17:22 - CONCLUSION: No acute intracranial disease. No hemorrhage seen. Tray Patel MD CT Angiography 05/02/17 Signed Impressions: Service Date/Time: Tuesday, May 02, 2017 11:10 - CONCLUSION: 1. There is pulmonary embolus in the right pulmonary artery, right upper lobe and lower lobe branches. 2. Resorption of previously seen gas in the left axilla with fluid collection at this site with postprocedural change and possibly postprocedural hemorrhage not significantly changed in size. 3. Interval development of right lung airspace process may represent postobstructive pneumonia and there is mucus within the trachea not present yesterday. 4. Right pleural effusion is smaller and left pleural effusion is larger. 5. No change in bulky adenopathy. Leonor Chavez MD Upper Extremity Ultrasound 04/30/17 Signed Impressions: Service Date/Time: April 12:25 - CONCLUSION: There some superficial thrombosis of a vein in the forearm. The deep venous system is patent. Large fluid collection left axilla. Significant soft tissue edema throughout the upper arm. Rinku Hillman MD Thoracentesis Ultrasound 7/20/17 0000 Signed Impressions: Service Date/Time: April 12:14 - CONCLUSION: Uncomplicated ultrasound guided thoracentesis. Tray Patel MD Port Line Insertion 04/27/17 0000 Signed Impressions: Service Date/Time: Thursday, April 27, 2017 14:56 - CONCLUSION: 1. Bulky bilateral lower cervical lymphadenopathy. 2. Uncomplicated ultrasound and fluoroscopic guided implanted central venous port catheter placement as described in detail above. An 8 Stateless Power port was placed. Liang Peralta MD Bone Biopsy CT 04/27/17 0000 Signed Impressions: Service Date/Time: Thursday, April 27, 2017 16:22 - CONCLUSION: 1. Uncomplicated CT guided bone marrow aspirate. 2. Uncomplicated CT guided bone marrow biopsy. Tray Patel MD Chest CT 04/25/17 0000 Signed Impressions: Service Date/Time: Wednesday, April 26, 2017 19:00 - CONCLUSION: The right pleural effusion is slightly larger on the left side has not changed. Extensive bulky adenopathy as before and malignancies such as lymphoma is suspected. Leonor Chavez MD Gall Bladder Ultrasound 04/22/17 0000 Signed Impressions: Service Date/Time: Saturday, April 22, 2017 07:35 - CONCLUSION: Small liver with focal abdomen only incompletely evaluated. Large right pleural effusion. effusion. Kirk Briceño MD FACR Abdomen CT 04/20/17 0000 Signed Impressions: Service Date/Time: Thursday, April 20, 2017 19:40 - CONCLUSION: Limited exam because of lack of intravenous contrast. Lymphoma is suspected. Pathological diagnosis could be obtained with ultrasound biopsy of the cervical, axillary or inguinal adenopathy. Kirk Briceño MD FACR Objective Remarks GENERAL: in no acute distress CARDIOVASCULAR: Regular rate and regular rhythm without murmurs, gallops, or rubs. RESPIRATORY: Clear to auscultation. Breath sounds equal bilaterally. No wheezes , rales, or rhonchi. GASTROINTESTINAL: Abdomen soft, non-tender, nondistended. Normal, active bowel sounds MUSCULOSKELETAL: Extremities without clubbing, cyanosis, or edema. NEURO: awake and alert Procedures 04/[address] excision biopsy 04/27- port placement 05/02-TPA 05/06-left IJ Vas-Cath placement endotracheal intubation Medications and IVs Current Medications Ondansetron HCl 4 mg 4 mg ONCE ONCE IVP Last administered on 04/18/17 17:38; Start 04/18/17 at 17:30; Stop 04/18/17 at 17:31; Status DC Sodium Chloride (NS 1000 ml Inj) 1,000 ml @ 1,000 mls/hr Q1H IV Last administered on 04/18/17 17:38; Start 04/18/17 at 17:16; Stop 04/18/17 at 18:15; Status DC Sodium Chloride 2 ml 2 ml UNSCH PRN IV FLUSH FLUSH AFTER USING IV ACCESS Last administered on 04/21/17 22:27; Start 04/18/17 at 17:30 Sodium Chloride 1,000 ml @ 1,000 mls/hr Q1H IV Last administered on 04/18/17 18:40; Start 04/18/17 at 18:37; Stop 04/18/17 at 19:36; Status DC Potassium Chloride (KCl 20 Meq Premix Inj) 100 ml @ 50 mls/hr Q2H IV Last administered on 04/18/17 22:12; Start 04/18/17 at 19:00; Stop 04/18/17 at 22:59; Status DC Ondansetron HCl (Zofran Inj) 4 mg Q6H PRN IVP NAUSEA OR VOMITING Last administered on 04/26/17 06:04; Start 04/18/17 at 19:30; Stop 04/26/17 at 13:02 ; Status DC Morphine Sulfate (Morphine Inj) 2 mg Q3H PRN IV Pain 3-5; if unable to take PO ; Start 04/18/17 at 19:30; Status Cancel Morphine Sulfate (Morphine Inj) 4 mg Q3H PRN IV Pain 6-10;if unable to take PO ; Start 04/18/17 at 19:30; Status Cancel Naloxone HCl (Narcan Inj) 0.4 mg UNSCH PRN IV SEE LABEL COMMENTS; Start at 19:30 Senna/Docusate Sodium (Porsha-Colace) 1 tab BID PO Last administered on 07:52; Start 04/18/17 at 21:00; Stop 05/13/17 at 17:16; Status DC Magnesium Hydroxide (Milk Of Magnesia Liq) 30 ml Q12H PRN PO MILD - MODERATE CONSTIPATION Last administered on 05/09/17 08:01; Start 04/18/17 at 19:30; Stop 05/13/17 at 17:16; Status DC Sennosides (Senokot) 17.2 mg Q12H PRN PO MODERATE - SEVERE CONSTIPATION; Start 04/18/17 at 19:30; Stop 05/13/17 at 17:16; Status DC Bisacodyl (Dulcolax Supp) 10 mg DAILY PRN RECTAL SEVERE CONSITIPATION; Start at 19:30; Stop 05/13/17 at 17:16; Status DC Lactulose 30 ml 30 ml DAILY PRN PO SEVERE CONSITIPATION; Start 04/18/17 at 19:30 ; Stop 05/13/17 at 17:16; Status DC Potassium Chloride/Sodium Chloride 1,000 ml @ 125 mls/hr Q8H IV ; Start at 21:00; Stop 04/18/17 at 21:00; Status DC Potassium Chloride/Sodium Chloride 1,000 ml @ 83 mls/hr Q12H3M IV Last administered on 04/23/17 01:19; Start 04/19/17 at 02:00; Stop 04/23/17 at 09:04 ; Status DC Sodium Chloride (NS 1000 ml Inj) 1,000 ml @ 125 mls/hr Q8H IV Last administered on 04/18/17 20:00; Start 04/18/17 at 20:00; Stop 04/19/17 at 16:01; Status DC Pneumococcal Polyvalent Vaccine 25 mcg 25 mcg ONCE ONCE IM Last administered on 04/19/17 11:20; Start 04/19/17 at 09:00; Stop 04/19/17 at 09:01; Status DC Ceftriaxone Sodium/Sodium Chloride (Rocephin Inj/NS Inj) 100 ml @ 200 mls/hr Q24H IV Last administered on 04/24/17 12:51; Start 04/19/17 at 13:00; Stop at 14:33; Status DC Heparin Sodium (Porcine) (Heparin Inj) 5,000 units Q8HR SQ Last administered on 05/02/17 12:46; Start 04/19/17 at 14:00; Status Hold Azithromycin (Zithromax) 500 mg Q24H PO Last administered on 04/24/17 12:51; Start 04/19/17 at 13:00; Stop 04/24/17 at 14:33; Status DC Clonidine (Catapres) 0.1 mg ONCE ONCE PO Last administered on 04/20/17 22:16 ; Start 04/20/17 at 21:45; Stop 04/20/17 at 21:46; Status DC Nifedipine (Procardia Xl) 30 mg DAILY PO Last administered on 04/25/17 09:42; Start 04/21/17 at 17:00; Stop 04/25/17 at 13:12; Status DC Hydralazine HCl 10 mg 10 mg Q6HR PRN IV PUSH SBP>160, DBP>90 Last administered on 04/27/17 10:15; Start 04/21/17 at 17:00 Cefazolin Sodium/ Sodium Chloride (Ancef Inj/NS Inj) 100 ml @ 200 mls/hr BOTTOM SAW OPERATOR IV ; Start 04/21/17 at 21:30; Stop 04/24/17 at 21:29; Status DC Midazolam HCl (Versed Inj) 2 mg STK-MED ONCE .ROUTE Last administered on 09:02; Start 04/22/17 at 09:02; Stop 04/22/17 at 09:03; Status DC Bupivacaine HCl/ Epinephrine Bitart (Sensorcaine-Epi 0.5% 50 ml Inj) 50 ml STK- MED ONCE INFIL ; Start 04/22/17 at 09:25; Stop 04/22/17 at 09:26; Status Cancel Albuterol Sulfate (*ALBUTEROL NEB PERIprocedure ONLY) 2.5 mg STK-MED ONCE NEB Last administered on 04/22/17 10:06; Start 04/22/17 at 10:06; Stop 04/22/17 at 10:07; Status DC Fentanyl Citrate (fentaNYL INJ) 200 mcg STK-MED ONCE .ROUTE ; Start 04/22/17 at 10:10; Stop 04/22/17 at 10:11; Status DC Bupivacaine HCl (Marcaine Pf 0.5% Inj) 30 ml STK-MED ONCE INFIL Last administered on 04/22/17 09:25; Start 04/22/17 at 09:25; Stop 04/22/17 at 10:49 ; Status DC Miscellaneous Information ALL NURSING DEPARTME... UNSCH PRN .XX SEE LABEL COMMENTS; Start 04/22/17 at 10:01; Stop 04/23/17 at 10:00; Status DC Dextrose/Sodium Chloride 1,000 ml @ 60 mls/hr [id number] IV Last administered on 04/24/17 06:40; Start 04/23/17 at 12:45; Stop 04/24/17 at 14:36; Status DC Potassium Chloride/Dextrose/ Sodium Chloride (KCl Inj/D5W-NS 1000 ml Inj) 1,015 ml @ 70 mls/hr [id number] IV Last administered on 04/25/17 05:34; Start at 16:00; Stop 04/25/17 at 13:12; Status DC Promethazine HCl (Phenergan Inj) 25 mg ONCE ONCE IM Last administered on 11:55; Start 04/25/17 at 08:00; Stop 04/25/17 at 08:01; Status DC Nifedipine 60 mg 60 mg DAILY PO Last administered on 04/27/17 10:02; Start at 09:00; Stop 04/27/17 at 14:48; Status DC Potassium Chloride/Dextrose/ Sodium Chloride (KCl Inj/D5W-NS 1000 ml Inj) 1,015 ml @ 60 mls/hr [id number] IV Last administered on 04/27/17 18:18; Start at 15:00; Stop 04/28/17 at 11:49; Status DC Promethazine HCl (Phenergan Inj) 12.5 mg Q8H PRN IM PERSISTENT NAUSEA Last administered on 04/30/17 04:34; Start 04/26/17 at 13:15; Stop 04/30/17 at 11:28 ; Status DC Allopurinol 300 mg 300 mg DAILY PO Last administered on 05/05/17 08:12; Start 04/27/17 at 09:00; Stop 05/05/17 at 12:10; Status DC Vancomycin HCl 1000 mg/Sodium Chloride 250 ml @ 250 mls/hr BOTTOM SAW OPERATOR IV Last administered on 04/27/17 13:49; Start 04/27/17 at 10:00; Stop 04/30/17 at 09:59 ; Status DC Cefazolin Sodium/ Dextrose (Ancef 2 Gm Premix) 50 ml @ 100 mls/hr BOTTOM SAW OPERATOR IV Last administered on 04/27/17 15:42; Start 04/27/17 at 10:00; Stop 04/30/17 at 09:59; Status DC Nifedipine (Procardia Xl) 90 mg DAILY PO Last administered on 05/17/17 08:58; Start 04/28/17 at 09:00 Clonidine (Catapres) 0.1 mg Q12HR PO ; Start 04/27/17 at 21:00; Status UNV Clonidine (Catapres) 0.1 mg Q6H PRN PO SBP>160, DBP>90 Last administered on 08:07; Start 04/27/17 at 15:00 Heparin Sodium (Porcine) (*HEPARIN CENTRAL FLUSH PERIprocedural ONLY) 500 units STK-MED ONCE IV FLUSH Last administered on 04/27/17 14:51; Start 04/27/17 at 14:51; Stop 04/27/17 at 14:52; Status DC Lidocaine/ Epinephrine (Xylocaine-Epi 1%-1:100,000 Inj) 20 ml STK-MED ONCE .ROUTE Last administered on 04/27/17 14:51; Start 04/27/17 at 14:51; Stop at 14:52; Status DC Midazolam HCl (Versed Inj) 5 mg STK-MED ONCE .ROUTE Last administered on 14:52; Start 04/27/17 at 14:52; Stop 04/27/17 at 14:53; Status DC Fentanyl Citrate 250 mcg 250 mcg STK-MED ONCE .ROUTE Last administered on 14:53; Start 04/27/17 at 14:53; Stop 04/27/17 at 14:54; Status DC Sodium Chloride (NS 1000 ml Inj) 1,000 ml @ 100 mls/hr Q10H IV Last administered on 04/29/17 17:55; Start 04/29/17 at 15:00; Stop 04/30/17 at 00:59 ; Status DC Acetaminophen (Tylenol) 650 mg ONCE ONCE PO Last administered on 04/30/17 16: 44; Start 04/30/17 at 13:00; Stop 04/30/17 at 13:01; Status DC Diphenhydramine HCl 50 mg 50 mg ONCE ONCE PO Last administered on 04/30/17 16 :43; Start 04/30/17 at 13:00; Stop 04/30/17 at 13:01; Status DC Rituximab/Sodium Chloride (Rituxan Inj/NS 500 ml Inj) 571.625 ml @ 0 mls/hr ONCE ONCE IV Last administered on 05/01/17 13:15; Start 04/30/17 at 14:00; Stop 04/30/17 at 14:01; Status DC Prednisone 115 mg 115 mg Q12H PO ; Start 04/30/17 at 13:00; Stop 05/01/17 at 11: 21; Status DC Dexamethasone Sodium Phosphate 20 mg/Granisetron HCl 1 mg/Sodium Chloride 56 ml @ 224 mls/hr Q24H IV ; Start 04/30/17 at 15:00; Stop 05/01/17 at 11:26; Status DC Potassium Chloride 100 ml @ 50 mls/hr BOLUS ONCE IV Last administered on 04/30 10:20; Start 04/30/17 at 10:00; Stop 04/30/17 at 11:59; Status DC Etoposide 95.5 mg/ Doxorubicin HCl 19.1 mg/ Vincristine Sulfate 0.764 mg/ Sodium Chloride 515.089 ml @ 21.462 mls/hr Q24H IV ; Start 04/30/17 at 15:00; Stop 05/04/17 at 14:59; Status Hold Cyclophosphamide/ Sodium Chloride (Cytoxan Inj/NS 500 ml Inj) 500 ml @ 500 mls/ hr ONCE ONCE IV ; Start 05/04/17 at 14:00; Stop 05/04/17 at 14:59; Status DC Ondansetron HCl (Zofran Inj) 4 mg Q6HR PRN IV PUSH NAUSEA OR VOMITING Last administered on 05/07/17 10:06; Start 04/30/17 at 11:30 Promethazine HCl (Phenergan Inj) 25 mg Q6H PRN IM NAUSEA OR VOMITING Last administered on 05/01/17 13:27; Start 04/30/17 at 11:30 Acetaminophen/ Hydrocodone Bitart ([place] 5-325 Mg) 1 tab Q6H PRN PO PAIN SCALE 1 TO 10 Last administered on 05/12/17 02:48; Start 04/30/17 at 11:30 Albuterol/ Ipratropium (Duoneb Neb) 1 ampule ONCE ONCE NEB Last administered on 04/30/17 20:16; Start 04/30/17 at 19:45; Stop 04/30/17 at 20:11; Status DC Albuterol/ Ipratropium (Duoneb Neb) 1 ampule Q2HR NEB PRN NEB sob, wheeze; Start 04/30/17 at 20:45; Stop 05/02/17 at 10:14; Status DC Morphine Sulfate (Morphine Inj) 2 mg ONCE ONCE IV PUSH Last administered on 23:36; Start 04/30/17 at 23:30; Stop 04/30/17 at 23:31; Status DC Furosemide (Lasix Inj) 10 mg ONCE ONCE IV PUSH Last administered on 05/01/17 01:01; Start 05/01/17 at 00:00; Stop 05/01/17 at 00:01; Status DC Furosemide (Lasix Inj) 20 mg ONCE ONCE IV PUSH Last administered on 05/01/17 09:09; Start 05/01/17 at 07:45; Stop 05/01/17 at 07:52; Status DC Acetaminophen (Tylenol) 650 mg NOW ONCE PO Last administered on 05/01/17 10: 51; Start 05/01/17 at 10:45; Stop 05/01/17 at 10:46; Status DC Diphenhydramine HCl 50 mg 50 mg NOW ONCE PO Last administered on 05/01/17 10: 51; Start 05/01/17 at 10:45; Stop 05/01/17 at 10:46; Status DC Rituximab/Sodium Chloride (Rituxan Inj/NS 500 ml Inj) 571.625 ml @ 0 mls/hr ONCE ONCE IV ; Start 05/01/17 at 12:00; Stop 05/01/17 at 12:01; Status DC Acetaminophen (Tylenol) 650 mg ONCE ONCE PO ; Start 05/01/17 at 11:30; Stop at 11:31; Status DC Diphenhydramine HCl (Benadryl) 50 mg ONCE ONCE PO ; Start 05/01/17 at 11:30; Stop 05/01/17 at 11:31; Status DC Prednisone 115 mg 115 mg Q12HR PO Last administered on 05/02/17 20:08; Start 05/01/17 at 11:00; Stop 05/05/17 at 21:01; Status DC Dexamethasone Sodium Phosphate/ Granisetron HCl/ Sodium Chloride (Decadron Inj/ Kytril Inj/NS Inj) 56 ml @ 224 mls/hr Q24H IV ; Start 05/01/17 at 11:30; Stop 05/06/17 at 11:44; Status DC Metoclopramide HCl (Reglan Inj) 10 mg Q8HR IV PUSH Last administered on 04:59; Start 05/01/17 at 15:30; Stop 05/09/17 at 19:03; Status DC Pantoprazole Sodium (Protonix) 40 mg DAILY PO Last administered on 05/06/17 08 :17; Start 05/01/17 at 16:00; Stop 05/07/17 at 11:49; Status DC Furosemide (Lasix Inj) 20 mg ONCE ONCE IV PUSH Last administered on 05/01/17 16:14; Start 05/01/17 at 15:30; Stop 05/01/17 at 15:31; Status DC Albuterol/ Ipratropium (Duoneb Neb) 1 ampule BID NEB INH Last administered on 05/02/17 07:47; Start 05/01/17 at 20:00; Stop 05/02/17 at 10:18; Status DC Furosemide (Lasix Inj) 20 mg STAT ONCE IV PUSH Last administered on 05/02/17 08:40; Start 05/02/17 at 08:30; Stop 05/02/17 at 08:37; Status DC Etomidate (Amidate Inj) 20 mg STK-MED ONCE .ROUTE Last administered on 12:48; Start 05/02/17 at 09:23; Stop 05/02/17 at 09:24; Status DC Dextrose (D50w (Vial) Inj) 25 ml UNSCH PRN IV PUSH HYPOGLYCEMIA-SEE COMMENTS; Start 05/02/17 at 10:00; Stop 05/16/17 at 08:09; Status DC Insulin Human Regular (NovoLIN R SUPPLEMENTAL SCALE) 1 Q6HR SQ Last administered on 7/24/17at 18:00; Start 05/02/17 at 12:00; Stop 05/16/17 at 08:09 ; Status DC Chlorhexidine Gluconate (Peridex 0.12% Liq) 15 ml BID@08,20 MT Last administered on 05/15/17t 20:00; Start 05/02/17 at 20:00 Magnesium Oxide 800 mg 800 mg UNSCH PRN PO For Magnesium 1.2 - 1.6 mg/dL; Start 05/02/17 at 10:00; Stop 05/03/17 at 13:51; Status DC Magnesium Sulfate 4 gm/Sodium Chloride 100 ml @ 50 mls/hr UNSCH PRN IV For Magnesium 0.9 - 1.1 mg/dL; Start 05/02/17 at 10:00; Stop 05/03/17 at 13:51; Status DC Magnesium Sulfate 2 gm/Sodium Chloride 100 ml @ 50 mls/hr UNSCH PRN IV For Magnesium 1.2 - 1.6 mg/dL; Start 05/02/17 at 10:00; Stop 05/03/17 at 13:51; Status DC Potassium Chloride 100 ml @ 50 mls/hr Q2H PRN IV For Potassium 2.8 - 3.2 mEq/L ; Start 05/02/17 at 10:00; Stop 05/03/17 at 13:51; Status DC Potassium Chloride 100 ml @ 50 mls/hr Q2H PRN IV For Potassium 3.3 - 3.5 mEq/L ; Start 05/02/17 at 10:00; Stop 05/03/17 at 13:51; Status DC Potassium Chloride 100 ml @ 50 mls/hr Q2H PRN IV For Potassium 2.8 - 3.2 mEq/L ; Start 05/02/17 at 10:00; Stop 05/03/17 at 13:51; Status DC Potassium Chloride (KCl 40 Meq Premix Inj) 100 ml @ 25 mls/hr UNSCH PRN IV For Potassium 3.3 - 3.5 mEq/L; Start 05/02/17 at 10:00; Stop 05/03/17 at 13:51; Status DC Potassium Phosphate (K-Phos) 2,000 mg Q4H PRN PO For Phosphorus < 2.5 mg/dL; Start 05/02/17 at 10:00; Stop 05/03/17 at 13:51; Status DC Potassium Phosphate 2000 mg 2,000 mg UNSCH PRN PO/TUBE SEE LABEL COMMENTS; Start 05/02/17 at 10:00; Stop 05/03/17 at 13:51; Status DC Potassium Phosphate 30 mmol/ Sodium Chloride 260 ml @ 42 mls/hr UNSCH PRN IV SEE LABEL COMMENTS; Start 05/02/17 at 10:00; Stop 05/03/17 at 13:52; Status DC Sodium Phosphate/ Sodium Chloride (Sodium Phosphate Inj/NS 250 ml Inj) 250 ml @ 42 mls/hr UNSCH PRN IV For Phosphorus < 2.5 mg/dL; Start 05/02/17 at 10:00; Stop 05/03/17 at 13:52; Status DC Albuterol/ Ipratropium (Duoneb Neb) 1 ampule Q6HR NEB INH Last administered on 05/06/17 03:23; Start 05/02/17 at 10:00; Stop 05/06/17 at 10:00; Status DC Albuterol/ Ipratropium 1 ampule 1 ampule Q2HR NEB PRN INH WHEEZING Last administered on 05/08/17 08:08; Start 05/02/17 at 10:00 Fentanyl Citrate 250 ml @ 0 mls/hr TITRATE IV Last administered on 05/10/17 05 :36; Start 05/02/17 at 10:00 Propofol (Diprivan 1000 Mg/100ml Inj) 100 ml @ 0 mls/hr TITRATE IV Last administered on 05/10/17 06:54; Start 05/02/17 at 10:00 Iohexol 75 ml 75 ml STK-MED ONCE IV Last administered on 05/02/17 11:31; Start 05/02/17 at 11:31; Stop 05/02/17 at 11:32; Status DC Cefepime HCl 2000 mg/Sodium Chloride 100 ml @ 200 mls/hr Q12H IV Last administered on 05/05/17 02:43; Start 05/02/17 at 15:00; Stop 05/05/17 at 11:53 ; Status DC Vancomycin HCl/ Sodium Chloride (Vancomycin Inj/ NS 250 ml Inj) 250 ml @ 250 mls/hr ONCE ONCE IV Last administered on 05/02/17 16:14; Start 05/02/17 at 15 :00; Stop 05/02/17 at 15:59; Status DC Heparin Sodium (Porcine) (Heparin Inj) 5,000 units ONCE ONCE IV Last administered on 05/02/17 15:35; Start 05/02/17 at 16:00; Stop 05/02/17 at 16:01 ; Status DC Miscellaneous Information Patient in critical care unit? Ass... [id number] .XX Last administered on 05/02/17 17:30; Start 05/02/17 at 17:15 Chlorhexidine Gluconate (Chlorhexidine 2% Cloth) 3 pack DAILY@04 TOPICAL Last administered on 05/07/17 03:45; Start 05/03/17 at 04:00; Stop 05/07/17 at 04:01 ; Status DC Chlorhexidine Gluconate 3 pack 3 pack UNSCH PRN TOPICAL HYGIENIC CARE; Start at 17:15; Stop 05/07/17 at 17:08; Status DC Alteplase, Recombinant/ Syringe / Bag (Activase Drip/ Syringe/Bag) 49.9999 ml @ 50 mls/hr ONCE ONCE IV Last administered on 05/02/17 19:58; Start 05/02/17 at 19:15; Stop 05/02/17 at 20:14; Status DC Sodium Chloride (NS Inj) 30 ml ONCE ONCE IVF Last administered on 05/02/17 19 :15; Start 05/02/17 at 19:15; Stop 05/02/17 at 19:28; Status DC Miscellaneous Medication Thrombolysis plan for submass... ONCE ONCE OTHER Last administered on 05/02/17 19:15; Start 05/02/17 at 19:15; Stop 05/02/17 at 19:28; Status DC Heparin Sodium/ Dextrose 250 ml @ 0 mls/hr TITRATE IV Last administered on 06:24; Start 05/03/17 at 02:00 Epinephrine HCl/ Dextrose (Adrenalin (1:1000) Inj/D5W Inj) 250 ml @ 30 mls/hr TITRATE IV Last administered on 05/04/17 09:43; Start 05/03/17 at 10:15; Stop 05/07/17 at 16:44; Status DC Calcium Acetate 2668 mg 2,668 mg TID PO Last administered on 05/17/17 15:00; Start 05/03/17 at 09:00 Epoprostenol Sodium/Sodium Chloride (Flolan (30,000 Ng/ml) Neb/NS Inj) 100 ml @ 8 mls/hr Q8H NEB Last administered on 05/04/17 00:17; Start 05/03/17 at 09:00 ; Stop 05/04/17 at 14:14; Status DC Lidocaine HCl 50 ml 50 ml STK-MED ONCE .ROUTE ; Start 05/03/17 at 12:21; Stop at 12:22; Status DC Epoprostenol Sodium 40 ml/ Sodium Chloride 100 ml @ 8 mls/hr Q8H NEB Last administered on 05/06/17 06:04; Start 05/04/17 at 15:00; Stop 05/06/17 at 12:43 ; Status DC Calcium Gluconate 2 gm/Dextrose 120 ml @ 120 mls/hr ONCE ONCE IV Last administered on 05/04/17 20:00; Start 05/04/17 at 20:00; Stop 05/04/17 at 20:59 ; Status DC Cefepime HCl/ Sodium Chloride (Maxipime Inj/NS Inj) 100 ml @ 200 mls/hr Q24H IV Last administered on 05/08/17 01:36; Start 05/06/17 at 03:00; Stop at 23:00; Status DC Allopurinol (Zyloprim) 200 mg DAILY PO Last administered on 05/17/17 08:56; Start 05/06/17 at 09:00 Artificial Tears (Tears Naturale Opth Soln) 1 drop Q8H EACH EYE Last administered on 05/07/17 10:06; Start 05/05/17 at 18:00; Stop 05/07/17 at 12:11 ; Status DC Fentanyl Citrate (fentaNYL INJ) 100 mcg STK-MED ONCE IV ; Start 04/22/17 at 12: 00; Stop 05/06/17 at 12:46; Status DC Propofol (Diprivan 200 Mg/20 ml Inj) 200 mg STK-MED ONCE IV ; Start 04/22/17 at 12:00; Stop 05/06/17 at 12:46; Status DC Phenylephrine HCl (Neosynephrine/ NS 1000 Mcg/10ml Syr) 1,000 mcg STK-MED ONCE IV ; Start 04/22/17 at 12:00; Stop 05/06/17 at 12:47; Status DC Ondansetron HCl (Zofran Inj) 4 mg STK-MED ONCE IV PUSH ; Start 04/22/17 at 12:00 ; Stop 05/06/17 at 12:47; Status DC Pantoprazole Sodium (Protonix Inj) 40 mg DAILY IV PUSH Last administered on 05/16 11:07; Start 05/07/17 at 12:00 Artificial Tears 1 applic 1 applic Q8H EACH EYE Last administered on 05/15/17 17:49; Start 05/07/17 at 18:00 Sodium Chloride (NS 1000 ml Inj) 1,000 ml @ 0 mls/hr TITRATE PRN IV WITH DIALYSIS Last administered on 05/11/17 18:29; Start 05/07/17 at 18:00 Heparin Sodium (Porcine) 8000 units 8,000 units UNSCH PRN IV FLUSH WITH DIALYSIS; Start 05/07/17 at 18:00 Sodium Chloride 1,000 ml @ 200 mls/hr Q5H PRN IV WITH DIALYSIS; Start 05/07/17 at 18:00 Sodium Chloride (NS 250 ml Inj) 200 ml @ 0 mls/hr UNSCH PRN IV WITH DIALYSIS; Start 05/07/17 at 18:00 Mannitol (Mannitol Inj) 12.5 gm UNSCH PRN IV WITH DIALYSIS; Start 05/07/17 at 18:00 Albumin Human (Albumin 25% Inj) 25 gm UNSCH PRN IV WITH DIALYSIS; Start at 18:00 Sodium Chloride (NS Flush) 5 ml UNSCH PRN IV FLUSH WITH DIALYSIS; Start at 18:00 Heparin Sodium (Porcine) (Heparin Inj) Dwell Heparin to f... UNSCH PRN OTHER WITH DIALYSIS Last administered on 05/15/17 10:50; Start 05/07/17 at 18:00 Gentamicin Sulfate (Gentamicin (Dialysis) Inj) 10 mg UNSCH PRN OTHER WITH DIALYSIS Last administered on 05/15/17 10:51; Start 05/07/17 at 18:00 Gelatin (Gelfoam 12 Mm/7 Mm Top) 1 foam UNSCH PRN TOPICAL WITH DIALYSIS; Start 05/07/17 at 18:00 Ondansetron HCl (Zofran Inj) 4 mg UNSCH PRN IV NAUSEA OR VOMITING; Start at 18:00 Acetaminophen (Tylenol) 650 mg UNSCH X1 PRN PO WITH DIALYSIS Last administered on 05/08/17 10:07; Start 05/07/17 at 18:00; Stop 05/14/17 at 17:59; Status DC Diphenhydramine HCl (Benadryl) 25 mg UNSCH PRN PO WITH DIALYSIS; Start at 18:00 Nitroglycerin (Nitrostat Sl) 0.4 mg UNSCH PRN SL WITH DIALYSIS; Start 05/07/17 at 18:00 Clonidine (Catapres) 0.1 mg UNSCH PRN PO WITH DIALYSIS; Start 05/07/17 at 18:00 Polyethylene Glycol (Miralax) 17 gm DAILY PO Last administered on 05/10/17 07: 52; Start 05/08/17 at 09:00; Stop 05/13/17 at 17:16; Status DC Lactulose (Lactulose Liq) 30 ml BID PO Last administered on 05/10/17 07:51; Start 05/08/17 at 09:00; Stop 05/13/17 at 17:16; Status DC Bisacodyl (Dulcolax Supp) 10 mg DAILY PRN RECTAL CONSTIPATION; Start 05/08/17 at 08:15; Stop 05/08/17 at 08:16; Status DC Diatrizoate Meglum/ Diatrizoate Sod ( Gastroview Liq) 18 ml ONCE ONCE PO Last administered on 05/09/17 16:42; Start 05/09/17 at 14:15; Stop 05/09/17 at 14:16; Status DC Heparin Sodium (Porcine) 300 units 300 units NOW ONCE IV ; Start 05/09/17 at 18 :30; Stop 05/09/17 at 18:31; Status DC Potassium Chloride (KCl 20 Meq Premix Inj) 100 ml @ 50 mls/hr BOLUS ONCE IV Last administered on 05/10/17 13:31; Start 05/10/17 at 12:30; Stop 05/10/17 at 14:29; Status DC Sucralfate 1 gm 1 gm Q8HR PO Last administered on 05/13/17 04:46; Start at 14:00; Stop 05/13/17 at 13:59; Status DC Potassium Chloride (KCl 20 Meq Premix Inj) 100 ml @ 50 mls/hr ONCE ONCE IV Last administered on 05/11/17 08:54; Start 05/11/17 at 08:30; Stop 05/11/17 at 10:29; Status DC Metronidazole (Flagyl) 500 mg Q8HR PO Last administered on 05/16/17 20:41; Start 05/11/17 at 14:00; Stop 05/25/17 at 12:00 Morphine Sulfate 4 mg 4 mg NOW ONCE IV PUSH Last administered on 05/12/17 09: 58; Start 05/12/17 at 09:45; Stop 05/12/17 at 09:46; Status DC Potassium Chloride (KCl 40 Meq Premix Inj) 100 ml @ 25 mls/hr ONCE ONCE IV Last administered on 05/12/17 13:51; Start 05/12/17 at 13:45; Stop 05/12/17 at 17: 44; Status DC Vancomycin HCl (VANCOMYCIN for oral use only) 500 mg QID PO Last administered on 05/16/17 20:41; Start 05/13/17 at 13:00; Stop 05/25/17 at 23:00 Dronabinol (Marinol) 5 mg BID@11,16 PO Last administered on 05/17/17 16:53; Start 05/14/17 at 16:00 Heparin Sodium (Porcine) (*HEPARIN INJ Periprocedural ONLY) 10,000 units STK- MED ONCE .ROUTE Last administered on 05/15/17 15:50; Start 05/15/17 at 15:24; Stop 05/15/17 at 15:25; Status DC Sodium Chloride (NS Flush) UNSCH PRN IVF SEE PROTOCOL; Start 05/15/17 at 16:00 Heparin Sodium (Porcine) (Heparin Inj) UNSCH PRN IV FLUSH SEE PROTOCOL; Start 05/15/17 at 16:00 Iohexol (Omnipaque 350 Inj) 10 ml STK-MED ONCE IV Last administered on 15:50; Start 05/15/17 at 20:42; Stop 05/15/17 at 20:43; Status DC Potassium Chloride (KCl) 30 meq ONCE ONCE PO Last administered on 05/16/17 11: 06; Start 05/16/17 at 09:00; Stop 05/16/17 at 09:01; Status DC Dexamethasone (Decadron) 40 mg ONCE ONCE PO ; Start 05/16/17 at 13:00; Stop 05/16 at 13:01; Status DC Potassium Chloride (KCl) 30 meq ONCE ONCE PO Last administered on 05/17/17 08: 57; Start 05/17/17 at 07:45; Stop 05/17/17 at 07:46; Status DC Potassium Chloride (KCl) 20 meq ONCE ONCE PO Last administered on 05/17/17 15: 00; Start 05/17/17 at 13:00; Stop 05/17/17 at 13:01; Status DC A/P Assessment and Plan A/P Acute Hypoxic Respiratory Failure-resolved --stable on RA Acute Submassive Pulmonary Embolism Right Heart Dysfunction Global severe left ventricular systolic dysfunction Cardiogenic Shock-resolved -- 2d echo 05/02: EF 30-35%, RV dysfunction with dilation --Repeat ECHO limited study scheduled on 05/09-RV function appears to have normalized, question of interatrial shunt for which cardiology consulted-d/w Dr. Taveras, recommended that once off anticoagulation, would need to be on ASA and require f/u echo periodically for evaluation. Acute Kidney Injury Hypokalemia -- likely secondary to cardiogenic shock -HD initiated. - Nephrology following, Dr. Haley --Left IJ vas catheter, on hemodialysis --Hemodialysis per nephrology -replace potassium cautiously in light of kidney failure Hyperphosphatemia protein calorie malnutrition- severe Ileus -continue Phoslo -started on diet; awaiting calorie count and consulted glassware selector --General surgery and GI following. -Expanded bowel regimen MiraLAX, lactulose. Large Cell B-cell lymphoma Pulmonary Embolism anemia of chronic disease C. difficile colitis -- hematology/oncology following Dr. Connelly-tentative plan to resume CHOP chemotherapy soon. -- continue heparin drip. transition to Coumadin soon- per hematology. --continue Flagyl and Vanco- plan for 14 days- evaluated by ID . continue PT. Prophylaxis: DVT: SCDs, heparin drip GI: protonix Catalina Eller MD May 18, 2017 07:53
[2017-05-18] MEDS: CHLORHEXIDINE 0.12% (ORAL KIT) 15 ML CUP MT SCH ×2 (08:00→20:00)
[2017-05-18] MEDS: CALCIUM ACETATE 667 MG CAP PO SCH ×3 (09:00→18:36)
[2017-05-18] MEDS: PANTOPRAZOLE SODIUM 40 MG VIAL IV PUSH SCH (09:00)
[2017-05-18] MEDS: NIFEdipine 90 MG SUSTAINED RELEASE TAB PO SCH (09:00)
[2017-05-18] MEDS: DRONABINOL 5 MG CAP PO SCH ×2 (11:00→16:00)
[2017-05-18] MEDS: VANCOMYCIN 500 MG VIAL (FOR ORAL USE ONLY) PO SCH ×4 (13:00→21:44)
--- NOTE | 2017-05-18 13:25 | PD.ONC.PN ---
Subjective Subjective Remarks Afebrile overnight. Patient had dialysis this morning. He is very tired. Still having loose stools. Refused Vanco yesterday, but states he will take his meds today. Objective Data Date Time Temp Pulse Resp B/P Pulse Ox O2 Delivery O2 Flow Rate FiO2 05/18/17 07:30 83 05/18/17 04:00 81 05/18/17 04:00 96.8 78 16 118/56 98 05/18/17 00:16 97 05/18/17 00:00 81 05/18/17 00:00 96.8 72 16 110/66 97 05/17/17 20:00 82 05/17/17 20:00 97.0 77 16 99/61 97 05/17/17 16:00 78 05/17/17 16:00 97.5 74 18 96/54 97 05/18/17 05/18/17 05/18/17 06:59 14:59 22:59 Intake Total 25 ml Output Total 100 ml 2500 ml Balance -75 ml -2500 ml Result Diagram: 05/18/1710 05/18/1710 Laboratory Results Laboratory Tests Test 05/18/17 06:10 White Blood Count 5.0 TH/MM3 Red Blood Count 2.58 MIL/MM3 Hemoglobin 7.7 GM/DL Hematocrit 22.1 % Mean Corpuscular Volume 85.8 FL Mean Corpuscular Hemoglobin 29.8 PG Mean Corpuscular Hemoglobin 34.8 % Concent Red Cell Distribution Width 17.2 % Platelet Count 321 TH/MM3 Mean Platelet Volume 7.6 FL Neutrophils (%) (Auto) 80.9 % Lymphocytes (%) (Auto) 9.3 % Monocytes (%) (Auto) 8.1 % Eosinophils (%) (Auto) 0.6 % Basophils (%) (Auto) 1.1 % Neutrophils # (Auto) 4.0 TH/MM3 Lymphocytes # (Auto) 0.5 TH/MM3 Monocytes # (Auto) 0.4 TH/MM3 Eosinophils # (Auto) 0.0 TH/MM3 Basophils # (Auto) 0.1 TH/MM3 CBC Comment DIFF FINAL Differential Comment Activated Partial 56.6 SEC Thromboplast Time Sodium Level 132 MEQ/L Potassium Level 3.1 MEQ/L Chloride Level 93 MEQ/L Carbon Dioxide Level 23.5 MEQ/L Anion Gap 16 MEQ/L Blood Urea Nitrogen 41 MG/DL Creatinine 7.31 MG/DL Estimat Glomerular Filtration 10 ML/MIN Rate Random Glucose 71 MG/DL Uric Acid 7.4 MG/DL Calcium Level 8.1 MG/DL Total Bilirubin 0.7 MG/DL Aspartate Amino Transf 11 U/L (AST/SGOT) Alanine Aminotransferase 6 U/L (ALT/SGPT) Alkaline Phosphatase 95 U/L Lactate Dehydrogenase 347 U/L Total Protein 5.6 GM/DL Albumin 2.0 GM/DL Administered Medications Medications (Trade) Dose Ordered Sig/Shyla Route PRN Reason Start Time Stop Time Status Last Admin Dose Admin Sodium Chloride (NS Flush) 2 ml UNSCH PRN IV FLUSH FLUSH AFTER USING IV ACCESS 04/18/17 17:30 04/21/17 22:27 Heparin Sodium (Porcine) (Heparin Inj) 5,000 units Q8HR SQ 04/19/17 14:00 Hold 05/02/17 12:46 Hydralazine HCl (Apresoline Inj) 10 mg Q6HR PRN IV PUSH SBP>160, DBP>90 04/21/17 17:00 04/27/17 10:15 Nifedipine (Procardia Xl) 90 mg DAILY PO 04/28/17 09:00 05/17/17 08:58 Clonidine (Catapres) 0.1 mg Q6H PRN PO SBP>160, DBP>90 04/27/17 15:00 04/29/17 08:07 Ondansetron HCl (Zofran Inj) 4 mg Q6HR PRN IV PUSH NAUSEA OR VOMITING 04/30/17 11:30 05/07/17 10:06 Promethazine HCl (Phenergan Inj) 25 mg Q6H PRN IM NAUSEA OR VOMITING 04/30/17 11:30 05/01/17 13:27 Acetaminophen/ Hydrocodone Bitart ([place] 5-325 Mg) 1 tab Q6H PRN PO PAIN SCALE 1 TO 10 04/30/17 11:30 05/12/17 02:48 Chlorhexidine Gluconate 15 ml 15 ml BID@08,20 MT 05/02/17 20:00 05/15/17 20:00 Fentanyl Citrate 250 ml @ 0 mls/hr TITRATE IV 05/02/17 10:00 05/10/17 05:36 Propofol (Diprivan 1000 Mg/100ml Inj) 100 ml @ 0 mls/hr TITRATE IV 05/02/17 10:00 05/10/17 06:54 Miscellaneous Information Patient in critical care unit? Ass... [id number] .XX 05/02/17 17:15 05/02/17 17:30 Heparin Sodium/ Dextrose (Heparin-D5W Inj) 250 ml @ 0 mls/hr TITRATE IV 05/03/17 02:00 05/18/17 07:49 Calcium Acetate (Phoslo) 2,668 mg TID PO 05/03/17 09:00 05/17/17 15:00 Allopurinol (Zyloprim) 200 mg DAILY PO 05/06/17 09:00 05/17/17 08:56 Pantoprazole Sodium (Protonix Inj) 40 mg DAILY IV PUSH 05/07/17 12:00 05/16/17 11:07 Artificial Tears 1 applic 1 applic Q8H EACH EYE 05/07/17 18:00 05/15/17 17:49 Sodium Chloride (NS 1000 ml Inj) 1,000 ml @ 0 mls/hr TITRATE PRN IV WITH DIALYSIS 05/07/17 18:00 05/11/17 18:29 Heparin Sodium (Porcine) (Heparin Inj) Dwell Heparin to f... UNSCH PRN OTHER WITH DIALYSIS 05/07/17 18:00 05/15/17 10:50 Gentamicin Sulfate (Gentamicin (Dialysis) Inj) 10 mg UNSCH PRN OTHER WITH DIALYSIS 05/07/17 18:00 05/15/17 10:51 Metronidazole (Flagyl) 500 mg Q8HR PO 05/11/17 14:00 05/25/17 12:00 05/16/17 20:41 Vancomycin HCl (VANCOMYCIN for oral use only) 500 mg QID PO 05/13/17 13:00 05/25/17 23:00 05/16/17 20:41 Dronabinol (Marinol) 5 mg BID@11,16 PO 05/14/17 16:00 05/17/17 16:53 Objective Remarks GENERAL: chronically ill male. He is lying in bed in nad. SKIN: Warm and dry. HEAD: Normocephalic. EYES: No injection or drainage. NECK: Supple, trachea midline. CARDIOVASCULAR: Regular rate and rhythm RESPIRATORY: Breath sounds equal bilaterally. No accessory muscle use. GASTROINTESTINAL: Abdomen soft, non-tender, nondistended. EXTREMITIES: No cyanosis, or edema. NEUROLOGICAL: awake and alert, normal speech. Assessment/Plan Problem List: (1) Non-Hodgkin lymphoma Status: Acute Plan: --Has aggressive triple hit lymphoma. --Received Rituxan x1. --Neck adenopathy relatively stable. --05/18: start CHOP chemotherapy (2) Pulmonary emboli Status: Acute Plan: --on heparin gtt-->will bridge to coumadin once tolerating meals --CTA showed large PE --s/p tpa therapy on 05.02. now on heparin gtt. (3) ALDO (acute kidney injury) Status: Acute Plan: Renal function has not recovered. Remains on HD. Minimal urine output. (4) Normocytic anemia Status: Acute Plan: --multifactorial due to chronic disease, renal failure --monitor and transfuse as needed (5) C. difficile colitis Status: Acute Plan: --on PO Vanco Assessment 47y/o male admitted with pancreatitis, found to have NHL. Plan 1. continue heparin gtt 2. monitor CBC 3. start CHOP chemotherapy today Attending Statement The exam, history, and the medical decision-making described in the above note were completed with the assistance of the mid-level provider. I reviewed and agree with the findings presented. I attest that I had a [id number] encounter with the patient on the same day, and personally performed and documented my assessment and findings in the medical record. Feeling stronger. Refused meds yesterday, talked to him and he said he would start taking his meds. Will start CHOP with dose reduction today. Monitor for TLS. Problem Qualifiers (1) Non-Hodgkin lymphoma: Brenda Platt May 18, 2017 13:25 Ruslan Connelly MD May 18, 2017 13:46
[2017-05-18] MEDS: ALLOPURINOL 100 MG TAB PO SCH (14:23)
[2017-05-18] MEDS ORDERED: GRANISETRON HCL 1 MG/ML VIAL IV PUSH ONE (16:30)
[2017-05-18] MEDS ORDERED: DEXAMETHASONE INJ 20 MG in SODIUM CHLORIDE 0.9% INJ 50 ML IV ONE (16:30)
[2017-05-18] MEDS ORDERED: DOXOrubicin HCL 10 MG/5 ML INJ IV PUSH ONE (17:00)
[2017-05-18] MEDS ORDERED: SODIUM CHLOR 0.9% 250 ML INJ 250 ML IV ONE (17:00)
--- NOTE | 2017-05-18 17:12 | HHI.NPPN ---
Subjective History of Present Illness 47-year-old male with no known past medical history who came to the hospital with complaint of nausea, vomiting and abdominal pain on April 18. I was called to see the patient because of elevated BUN and creatinine. The patient had a creatinine of 1.3 on presentation which improved to 0.7 and 0.8, then started increasing for last few days. Additional Remarks Patient is alert, not eating well, no SOB. Objective Data Data 05/17/17 05/18/17 19:00 07:00 Intake Total 442 ml 25 ml Output Total 100 ml Balance 442 ml -75 ml Intake Oral 442 ml 25 ml Output Urine Total 100 ml # Voids 0 # Bowel Movements 0 Vital Signs Date Time Temp Pulse Resp B/P Pulse Ox O2 Delivery O2 Flow Rate FiO2 05/18/17 16:20 89 05/18/17 12:00 96.8 95 16 102/62 93 05/18/17 07:30 83 05/18/17 04:00 81 05/18/17 04:00 96.8 78 16 118/56 98 05/18/17 00:16 97 05/18/17 00:00 81 05/18/17 00:00 96.8 72 16 110/66 97 05/17/17 20:00 82 05/17/17 20:00 97.0 77 16 99/61 97 -: 05/18/17 0610 05/18/17 0610 Physical Exam General Appearance: Malnourished Eyes Eye Exam: Pupils Equal Throat Throat Exam: Oral Mucosa [place] & Moist Pulmonary Resp Exam: Crackles, Rhonchi, Decreased Bases, Diminished Breath Sounds, Poor Inspiratory Effort Cardiology CV Exam: Regular, Normal Sinus Rhythm Gastrointestinal/Abdomen GI Exam: Soft, Non-Tender, Bowel Sounds Present, Distended Extremeties Extremities Exam: Trace Edema Neurologic Neuro Exam: Awake Assessment/Plan Assessment Summary: ALDO/Acute Renal Failure Problem List: (1) Non-Hodgkin lymphoma Plan: Hematology following, need for chemotherapy in the future. (2) Adenopathy (3) Pleural effusion (4) Shortness of breath (5) Pulmonary emboli Plan: on anticoagulation. (6) Acute pancreatitis (7) ALDO (acute kidney injury) Plan: He has become dialysis dependent. Plan Still no signs of renal recovery. Monitor renal function and urine output. Avoid nephrotoxins. Multiple medical problems, alcohol induced pancreatitis. HD done today and 2.5 liters removed. Follow the urine out put and BMP. HD as needed. Problem Qualifiers (1) Non-Hodgkin lymphoma: (2) Acute pancreatitis: Qualified Code: K85.20 - Alcohol-induced acute pancreatitis, unspecified complication status Leonid Haley MD May 18, 2017 17:12
[2017-05-18] MEDS ORDERED: vinCRIStine INJ 2 MG in SODIUM CHLORIDE 0.9% INJ 50 ML IV ONE (17:30)
[2017-05-18] MEDS ORDERED: SODIUM CHLORID 0.9% IV ONE (18:00)
[2017-05-18] MEDS ORDERED: CYCLOPHOSPHAMIDE IV ONE (18:00)
[2017-05-18] MEDS: predniSONE 20 MG TAB PO SCH (21:44)
[2017-05-19] VITALS (9 sets, daily range): BP systolic 107–127; BP diastolic 57–75; PULSE 70–88; RESP 18; TEMP 96.4–97.6; O2SAT 94–97
[2017-05-19] MEDS: ARTIFICIAL TEARS OPTH OINT 3.5 APPLIC/3.5 GM TUBO EACH EYE SCH ×3 (02:00→17:38)
[2017-05-19] MEDS: metroNIDAZOLE 500 MG TAB PO SCH ×3 (05:55→22:11)
[2017-05-19 07:49] LABS: BASOPHIL % 0.1 % (0.0-2.0); HEMATOCRIT 21.4 % (39.0-51.0); HEMO FLAGS DIFF FINAL; LYMPH % 6.2 % (9.0-44.0); LYMPHOCYTE # 0.2 TH/MM3 (1.0-4.8); MEAN CELL VOLUME 86.4 FL (80.0-100.0); MEAN CORPUSCULAR HEMOGLOBIN 29.1 PG (27.0-34.0); MEAN CORPUSCULAR HGB CONC 33.7 % (32.0-36.0); MONO % 1.6 % (0.0-8.0); NEUT % 92.1 % (16.0-70.0); PLATELET COUNT 293 TH/MM3 (150-450); RED BLOOD COUNT 2.47 MIL/MM3 (4.50-5.90); RED CELL DISTRIBUTION WIDTH 18.2 % (11.6-17.2); WHITE BLOOD COUNT 3.2 TH/MM3 (4.0-11.0)
[2017-05-19] MEDS: CHLORHEXIDINE 0.12% (ORAL KIT) 15 ML CUP MT SCH ×2 (08:00→20:00)
[2017-05-19 08:02] LABS: APTT (PATIENT) 72.4 SEC (24.3-30.1)
[2017-05-19 08:20] LABS: ALKALINE PHOSPHATASE 90 U/L (45-117); ALT (GPT) 6 U/L (12-78); ANION GAP 14 MEQ/L (5-15); AST (GOT) 12 U/L (15-37); BICARBONATE 24.5 MEQ/L (21.0-32.0); BLOOD UREA NITROGEN 33 MG/DL (7-18); CHLORIDE 96 MEQ/L (98-107); GLOMERULAR FILTRATION RATE 13 ML/MIN (>89); LDH SERUM 352 U/L (87-241); POTASSIUM 3.4 MEQ/L (3.5-5.1); SODIUM (NA) 134 MEQ/L (136-145); TOTAL BILIRUBIN ADULT 0.8 MG/DL (0.2-1.0)
[2017-05-19] MEDS: VANCOMYCIN 500 MG VIAL (FOR ORAL USE ONLY) PO SCH ×4 (09:00→22:11)
[2017-05-19] MEDS: ALLOPURINOL 100 MG TAB PO SCH (09:00)
[2017-05-19] MEDS: PANTOPRAZOLE SODIUM 40 MG VIAL IV PUSH SCH (09:00)
[2017-05-19] MEDS: NIFEdipine 90 MG SUSTAINED RELEASE TAB PO SCH (09:00)
[2017-05-19] MEDS: CALCIUM ACETATE 667 MG CAP PO SCH ×3 (09:00→17:37)
--- NOTE | 2017-05-19 09:13 | HHI.PR ---
Subjective Remarks resting comfortably with no distress. denies pain. chemo initiated. d/w the RN and no acute issues over night. Objective Vitals Vital Signs Date Time Temp Pulse Resp B/P Pulse Ox O2 Delivery O2 Flow Rate FiO2 05/19/17 04:00 97.0 85 18 110/75 95 05/19/17 04:00 82 05/19/17 00:00 83 05/19/17 00:00 97.6 88 18 120/69 96 05/18/17 20:19 21 05/18/17 20:00 97.1 81 18 115/67 96 05/18/17 20:00 84 05/18/17 18:00 97.0 82 16 118/66 96 05/18/17 16:20 89 05/18/17 12:00 96.8 95 16 102/62 93 I/O 05/18/17 05/18/17 05/18/17 05/19/17 05/19/17 05/19/17 07:00 15:00 23:00 07:00 15:00 23:00 Intake Total 25 ml Output Total 100 ml 2500 ml Balance -75 ml -2500 ml Intake Oral 25 ml Output Urine Total 100 ml Hemodialysis 2500 ml # Bowel Movements 1 1 Result Diagram: 05/19/17 0724 05/19/17 0724 Imaging Last Impressions Chest X-Ray 05/16/17 06 Signed Impressions: Service Date/Time: Tuesday, May 16, 2017 05:38 - CONCLUSION: 1. Bilateral lower lobe atelectasis versus pneumonia. Bilateral effusions. There has been no significant change when compared to the prior exam. Jadon Carroll MD Abdomen X-Ray 05/15/17 0600 Draft Impressions: Service Date/Time: Monday, May 15, 2017 04:29 - CONCLUSION: Findings of mild small bowel ileus. There has been no significant change when compared to the prior exam. Jadon Carroll MD Abdomen/Pelvis CT 05/09/17 0000 Signed Impressions: Service Date/Time: Tuesday, May 09, 2017 21:16 - CONCLUSION: 1. Diffusely distended loops of small bowel down to the cecum suggest ileus. 2. Evidence of mesenteric and retroperitoneal adenopathy. 3. Large bilateral pleural effusions , moderate amount of free fluid in the pelvis and mild ascites in the upper abdomen. 4. Abnormal appearance to the parenchyma of the right kidney with patchy areas of hyperdensity in a mosaic pattern. This of uncertain significance. The patient had iodinated contrast for a CT pulmonary angiogram 7 days ago; this could potentially represent residual parenchymal contrast which would be nonspecific, but raises the possibility of either obstruction or renal infarctions. Bryon Evans MD Renal Ultrasound 05/05/17 Signed Impressions: Service Date/Time: Friday, May 05, 2017 20:06 - CONCLUSION: 1. Kidneys are borderline echogenic which can be seen with medical renal disease. 2. No evidence of hydronephrosis. 3. Abdominal ascites. 4. Multiple dilated bowel loops. 5. Bilateral pleural effusions. Tray Patel MD Head CT 05/03/17 Signed Impressions: Service Date/Time: Wednesday, May 03, 2017 17:22 - CONCLUSION: No acute intracranial disease. No hemorrhage seen. Tray Patel MD CT Angiography 05/02/17 Signed Impressions: Service Date/Time: Tuesday, May 02, 2017 11:10 - CONCLUSION: 1. There is pulmonary embolus in the right pulmonary artery, right upper lobe and lower lobe branches. 2. Resorption of previously seen gas in the left axilla with fluid collection at this site with postprocedural change and possibly postprocedural hemorrhage not significantly changed in size. 3. Interval development of right lung airspace process may represent postobstructive pneumonia and there is mucus within the trachea not present yesterday. 4. Right pleural effusion is smaller and left pleural effusion is larger. 5. No change in bulky adenopathy. Leonor Chavez MD Upper Extremity Ultrasound 04/30/17 Signed Impressions: Service Date/Time: April 12:25 - CONCLUSION: There some superficial thrombosis of a vein in the forearm. The deep venous system is patent. Large fluid collection left axilla. Significant soft tissue edema throughout the upper arm. Rinku Hillman MD Thoracentesis Ultrasound 04/30/17 Signed Impressions: Service Date/Time: April 12:14 - CONCLUSION: Uncomplicated ultrasound guided thoracentesis. Tray Patel MD Port Line Insertion 04/27/17 Signed Impressions: Service Date/Time: Thursday, April 27, 2017 14:56 - CONCLUSION: 1. Bulky bilateral lower cervical lymphadenopathy. 2. Uncomplicated ultrasound and fluoroscopic guided implanted central venous port catheter placement as described in detail above. An 8 [place] [employer] port was placed. Liang Peralta MD Bone Biopsy CT 04/27/17 0000 Signed Impressions: Service Date/Time: Thursday, April 27, 2017 16:22 - CONCLUSION: 1. Uncomplicated CT guided bone marrow aspirate. 2. Uncomplicated CT guided bone marrow biopsy. Tray Patel MD Chest CT 04/25/17 0000 Signed Impressions: Service Date/Time: Wednesday, April 26, 2017 19:00 - CONCLUSION: The right pleural effusion is slightly larger on the left side has not changed. Extensive bulky adenopathy as before and malignancies such as lymphoma is suspected. Leonor Chavez MD Gall Bladder Ultrasound 04/22/17 0000 Signed Impressions: Service Date/Time: Saturday, April 22, 2017 07:35 - CONCLUSION: Small liver with focal abdomen only incompletely evaluated. Large right pleural effusion. effusion. Kirk Briceño MD FACR Abdomen CT 04/20/17 0000 Signed Impressions: Service Date/Time: Thursday, April 20, 2017 19:40 - CONCLUSION: Limited exam because of lack of intravenous contrast. Lymphoma is suspected. Pathological diagnosis could be obtained with ultrasound biopsy of the cervical, axillary or inguinal adenopathy. Kirk Briceño MD FACR Objective Remarks GENERAL: in no acute distress CARDIOVASCULAR: Regular rate and regular rhythm without murmurs, gallops, or rubs. RESPIRATORY: Clear to auscultation. Breath sounds equal bilaterally. No wheezes , rales, or rhonchi. GASTROINTESTINAL: Abdomen soft, non-tender, nondistended. Normal, active bowel sounds MUSCULOSKELETAL: Extremities without clubbing, cyanosis, or edema. NEURO: awake and alert Procedures 04/[address] excision biopsy 04/27- port placement 05/02-TPA 05/06-left IJ Vas-Cath placement endotracheal intubation Medications and IVs Current Medications Ondansetron HCl 4 mg 4 mg ONCE ONCE IVP Last administered on 04/18/17t 17:38; Start 04/18/17 at 17:30; Stop 04/18/17 at 17:31; Status DC Sodium Chloride (NS 1000 ml Inj) 1,000 ml @ 1,000 mls/hr Q1H IV Last administered on 04/18/17 17:38; Start 04/18/17 at 17:16; Stop 04/18/17 at 18:15; Status DC Sodium Chloride 2 ml 2 ml UNSCH PRN IV FLUSH FLUSH AFTER USING IV ACCESS Last administered on 04/21/17 22:27; Start 04/18/17 at 17:30 Sodium Chloride 1,000 ml @ 1,000 mls/hr Q1H IV Last administered on 04/18/17 18:40; Start 04/18/17 at 18:37; Stop 04/18/17 at 19:36; Status DC Potassium Chloride (KCl 20 Meq Premix Inj) 100 ml @ 50 mls/hr Q2H IV Last administered on 04/18/17 22:12; Start 04/18/17 at 19:00; Stop 04/18/17 at 22:59; Status DC Ondansetron HCl (Zofran Inj) 4 mg Q6H PRN IVP NAUSEA OR VOMITING Last administered on 04/26/17 06:04; Start 04/18/17 at 19:30; Stop 04/26/17 at 13:02 ; Status DC Morphine Sulfate (Morphine Inj) 2 mg Q3H PRN IV Pain 3-5; if unable to take PO ; Start 04/18/17 at 19:30; Status Cancel Morphine Sulfate (Morphine Inj) 4 mg Q3H PRN IV Pain 6-10;if unable to take PO ; Start 04/18/17 at 19:30; Status Cancel Naloxone HCl (Narcan Inj) 0.4 mg UNSCH PRN IV SEE LABEL COMMENTS; Start at 19:30 Senna/Docusate Sodium (Porsha-Colace) 1 tab BID PO Last administered on 07:52; Start 04/18/17 at 21:00; Stop 05/13/17 at 17:16; Status DC Magnesium Hydroxide (Milk Of Magnesia Liq) 30 ml Q12H PRN PO MILD - MODERATE CONSTIPATION Last administered on 05/09/17 08:01; Start 04/18/17 at 19:30; Stop 05/13/17 at 17:16; Status DC Sennosides (Senokot) 17.2 mg Q12H PRN PO MODERATE - SEVERE CONSTIPATION; Start 04/18/17 at 19:30; Stop 05/13/17 at 17:16; Status DC Bisacodyl (Dulcolax Supp) 10 mg DAILY PRN RECTAL SEVERE CONSITIPATION; Start at 19:30; Stop 05/13/17 at 17:16; Status DC Lactulose 30 ml 30 ml DAILY PRN PO SEVERE CONSITIPATION; Start 04/18/17 at 19:30 ; Stop 05/13/17 at 17:16; Status DC Potassium Chloride/Sodium Chloride 1,000 ml @ 125 mls/hr Q8H IV ; Start at 21:00; Stop 04/18/17 at 21:00; Status DC Potassium Chloride/Sodium Chloride 1,000 ml @ 83 mls/hr Q12H3M IV Last administered on 04/23/17 01:19; Start 04/19/17 at 02:00; Stop 04/23/17 at 09:04 ; Status DC Sodium Chloride (NS 1000 ml Inj) 1,000 ml @ 125 mls/hr Q8H IV Last administered on 04/18/17 20:00; Start 04/18/17 at 20:00; Stop 04/19/17 at 16:01; Status DC Pneumococcal Polyvalent Vaccine 25 mcg 25 mcg ONCE ONCE IM Last administered on 04/19/17 11:20; Start 04/19/17 at 09:00; Stop 04/19/17 at 09:01; Status DC Ceftriaxone Sodium/Sodium Chloride (Rocephin Inj/NS Inj) 100 ml @ 200 mls/hr Q24H IV Last administered on 04/24/17 12:51; Start 04/19/17 at 13:00; Stop at 14:33; Status DC Heparin Sodium (Porcine) (Heparin Inj) 5,000 units Q8HR SQ Last administered on 05/02/17 12:46; Start 04/19/17 at 14:00; Status Hold Azithromycin (Zithromax) 500 mg Q24H PO Last administered on 04/24/17 12:51; Start 04/19/17 at 13:00; Stop 04/24/17 at 14:33; Status DC Clonidine (Catapres) 0.1 mg ONCE ONCE PO Last administered on 04/20/17 22:16 ; Start 04/20/17 at 21:45; Stop 04/20/17 at 21:46; Status DC Nifedipine (Procardia Xl) 30 mg DAILY PO Last administered on 04/25/17 09:42; Start 04/21/17 at 17:00; Stop 04/25/17 at 13:12; Status DC Hydralazine HCl 10 mg 10 mg Q6HR PRN IV PUSH SBP>160, DBP>90 Last administered on 04/27/17 10:15; Start 04/21/17 at 17:00 Cefazolin Sodium/ Sodium Chloride (Ancef Inj/NS Inj) 100 ml @ 200 mls/hr [employer] IV ; Start 04/21/17 at 21:30; Stop 04/24/17 at 21:29; Status DC Midazolam HCl (Versed Inj) 2 mg STK-MED ONCE .ROUTE Last administered on 09:02; Start 04/22/17 at 09:02; Stop 04/22/17 at 09:03; Status DC Bupivacaine HCl/ Epinephrine Bitart (Sensorcaine-Epi 0.5% 50 ml Inj) 50 ml STK- MED ONCE INFIL ; Start 04/22/17 at 09:25; Stop 04/22/17 at 09:26; Status Cancel Albuterol Sulfate (*ALBUTEROL NEB PERIprocedure ONLY) 2.5 mg STK-MED ONCE NEB Last administered on 04/22/17 10:06; Start 04/22/17 at 10:06; Stop 04/22/17 at 10:07; Status DC Fentanyl Citrate (fentaNYL INJ) 200 mcg STK-MED ONCE .ROUTE ; Start 04/22/17 at 10:10; Stop 04/22/17 at 10:11; Status DC Bupivacaine HCl (Marcaine Pf 0.5% Inj) 30 ml STK-MED ONCE INFIL Last administered on 04/22/17 09:25; Start 04/22/17 at 09:25; Stop 04/22/17 at 10:49 ; Status DC Miscellaneous Information ALL NURSING DEPARTME... UNSCH PRN .XX SEE LABEL COMMENTS; Start 04/22/17 at 10:01; Stop 04/23/17 at 10:00; Status DC Dextrose/Sodium Chloride 1,000 ml @ 60 mls/hr [id number] IV Last administered on 04/24/17 06:40; Start 04/23/17 at 12:45; Stop 04/24/17 at 14:36; Status DC Potassium Chloride/Dextrose/ Sodium Chloride (KCl Inj/D5W-NS 1000 ml Inj) 1,015 ml @ 70 mls/hr [id number] IV Last administered on 04/25/17 05:34; Start at 16:00; Stop 04/25/17 at 13:12; Status DC Promethazine HCl (Phenergan Inj) 25 mg ONCE ONCE IM Last administered on 11:55; Start 04/25/17 at 08:00; Stop 04/25/17 at 08:01; Status DC Nifedipine 60 mg 60 mg DAILY PO Last administered on 04/27/17 10:02; Start at 09:00; Stop 04/27/17 at 14:48; Status DC Potassium Chloride/Dextrose/ Sodium Chloride (KCl Inj/D5W-NS 1000 ml Inj) 1,015 ml @ 60 mls/hr [id number] IV Last administered on 04/27/17 18:18; Start at 15:00; Stop 04/28/17 at 11:49; Status DC Promethazine HCl (Phenergan Inj) 12.5 mg Q8H PRN IM PERSISTENT NAUSEA Last administered on 04/30/17 04:34; Start 04/26/17 at 13:15; Stop 04/30/17 at 11:28 ; Status DC Allopurinol 300 mg 300 mg DAILY PO Last administered on 05/05/17 08:12; Start 04/27/17 at 09:00; Stop 05/05/17 at 12:10; Status DC Vancomycin HCl 1000 mg/Sodium Chloride 250 ml @ 250 mls/hr [employer] IV Last administered on 04/27/17 13:49; Start 04/27/17 at 10:00; Stop 04/30/17 at 09:59 ; Status DC Cefazolin Sodium/ Dextrose (Ancef 2 Gm Premix) 50 ml @ 100 mls/hr [employer] IV Last administered on 04/27/17 15:42; Start 04/27/17 at 10:00; Stop 04/30/17 at 09:59; Status DC Nifedipine (Procardia Xl) 90 mg DAILY PO Last administered on 05/18/17 09:00; Start 04/28/17 at 09:00 Clonidine (Catapres) 0.1 mg Q12HR PO ; Start 04/27/17 at 21:00; Status UNV Clonidine (Catapres) 0.1 mg Q6H PRN PO SBP>160, DBP>90 Last administered on 08:07; Start 04/27/17 at 15:00 Heparin Sodium (Porcine) (*HEPARIN CENTRAL FLUSH PERIprocedural ONLY) 500 units STK-MED ONCE IV FLUSH Last administered on 04/27/17 14:51; Start 04/27/17 at 14:51; Stop 04/27/17 at 14:52; Status DC Lidocaine/ Epinephrine (Xylocaine-Epi 1%-1:100,000 Inj) 20 ml STK-MED ONCE .ROUTE Last administered on 04/27/17 14:51; Start 04/27/17 at 14:51; Stop at 14:52; Status DC Midazolam HCl (Versed Inj) 5 mg STK-MED ONCE .ROUTE Last administered on 14:52; Start 04/27/17 at 14:52; Stop 04/27/17 at 14:53; Status DC Fentanyl Citrate 250 mcg 250 mcg STK-MED ONCE .ROUTE Last administered on 14:53; Start 04/27/17 at 14:53; Stop 04/27/17 at 14:54; Status DC Sodium Chloride (NS 1000 ml Inj) 1,000 ml @ 100 mls/hr Q10H IV Last administered on 04/29/17 17:55; Start 04/29/17 at 15:00; Stop 04/30/17 at 00:59 ; Status DC Acetaminophen (Tylenol) 650 mg ONCE ONCE PO Last administered on 04/30/17 16: 44; Start 04/30/17 at 13:00; Stop 04/30/17 at 13:01; Status DC Diphenhydramine HCl 50 mg 50 mg ONCE ONCE PO Last administered on 04/30/17 16 :43; Start 04/30/17 at 13:00; Stop 04/30/17 at 13:01; Status DC Rituximab/Sodium Chloride (Rituxan Inj/NS 500 ml Inj) 571.625 ml @ 0 mls/hr ONCE ONCE IV Last administered on 05/01/17 13:15; Start 04/30/17 at 14:00; Stop 04/30/17 at 14:01; Status DC Prednisone 115 mg 115 mg Q12H PO ; Start 04/30/17 at 13:00; Stop 05/01/17 at 11: 21; Status DC Dexamethasone Sodium Phosphate 20 mg/Granisetron HCl 1 mg/Sodium Chloride 56 ml @ 224 mls/hr Q24H IV ; Start 04/30/17 at 15:00; Stop 05/01/17 at 11:26; Status DC Potassium Chloride 100 ml @ 50 mls/hr BOLUS ONCE IV Last administered on 04/30 10:20; Start 04/30/17 at 10:00; Stop 04/30/17 at 11:59; Status DC Etoposide 95.5 mg/ Doxorubicin HCl 19.1 mg/ Vincristine Sulfate 0.764 mg/ Sodium Chloride 515.089 ml @ 21.462 mls/hr Q24H IV ; Start 04/30/17 at 15:00; Stop 05/18/17 at 13:46; Status DC Cyclophosphamide/ Sodium Chloride (Cytoxan Inj/NS 500 ml Inj) 500 ml @ 500 mls/ hr ONCE ONCE IV ; Start 05/04/17 at 14:00; Stop 05/04/17 at 14:59; Status DC Ondansetron HCl (Zofran Inj) 4 mg Q6HR PRN IV PUSH NAUSEA OR VOMITING Last administered on 05/07/17 10:06; Start 04/30/17 at 11:30 Promethazine HCl (Phenergan Inj) 25 mg Q6H PRN IM NAUSEA OR VOMITING Last administered on 05/01/17 13:27; Start 04/30/17 at 11:30 Acetaminophen/ Hydrocodone Bitart ([place] 5-325 Mg) 1 tab Q6H PRN PO PAIN SCALE 1 TO 10 Last administered on 05/12/17 02:48; Start 04/30/17 at 11:30 Albuterol/ Ipratropium (Duoneb Neb) 1 ampule ONCE ONCE NEB Last administered on 04/30/17 20:16; Start 04/30/17 at 19:45; Stop 04/30/17 at 20:11; Status DC Albuterol/ Ipratropium (Duoneb Neb) 1 ampule Q2HR NEB PRN NEB sob, wheeze; Start 04/30/17 at 20:45; Stop 05/02/17 at 10:14; Status DC Morphine Sulfate (Morphine Inj) 2 mg ONCE ONCE IV PUSH Last administered on 23:36; Start 04/30/17 at 23:30; Stop 04/30/17 at 23:31; Status DC Furosemide (Lasix Inj) 10 mg ONCE ONCE IV PUSH Last administered on 05/01/17 01:01; Start 05/01/17 at 00:00; Stop 05/01/17 at 00:01; Status DC Furosemide (Lasix Inj) 20 mg ONCE ONCE IV PUSH Last administered on 05/01/17 09:09; Start 05/01/17 at 07:45; Stop 05/01/17 at 07:52; Status DC Acetaminophen (Tylenol) 650 mg NOW ONCE PO Last administered on 05/01/17 10: 51; Start 05/01/17 at 10:45; Stop 05/01/17 at 10:46; Status DC Diphenhydramine HCl 50 mg 50 mg NOW ONCE PO Last administered on 05/01/17 10: 51; Start 05/01/17 at 10:45; Stop 05/01/17 at 10:46; Status DC Rituximab/Sodium Chloride (Rituxan Inj/NS 500 ml Inj) 571.625 ml @ 0 mls/hr ONCE ONCE IV ; Start 05/01/17 at 12:00; Stop 05/01/17 at 12:01; Status DC Acetaminophen (Tylenol) 650 mg ONCE ONCE PO ; Start 05/01/17 at 11:30; Stop at 11:31; Status DC Diphenhydramine HCl (Benadryl) 50 mg ONCE ONCE PO ; Start 05/01/17 at 11:30; Stop 05/01/17 at 11:31; Status DC Prednisone 115 mg 115 mg Q12HR PO Last administered on 05/02/17 20:08; Start 05/01/17 at 11:00; Stop 05/05/17 at 21:01; Status DC Dexamethasone Sodium Phosphate/ Granisetron HCl/ Sodium Chloride (Decadron Inj/ Kytril Inj/NS Inj) 56 ml @ 224 mls/hr Q24H IV ; Start 05/01/17 at 11:30; Stop 05/06/17 at 11:44; Status DC Metoclopramide HCl (Reglan Inj) 10 mg Q8HR IV PUSH Last administered on 04:59; Start 05/01/17 at 15:30; Stop 05/09/17 at 19:03; Status DC Pantoprazole Sodium (Protonix) 40 mg DAILY PO Last administered on 05/06/17 08 :17; Start 05/01/17 at 16:00; Stop 05/07/17 at 11:49; Status DC Furosemide (Lasix Inj) 20 mg ONCE ONCE IV PUSH Last administered on 05/01/17 16:14; Start 05/01/17 at 15:30; Stop 05/01/17 at 15:31; Status DC Albuterol/ Ipratropium (Duoneb Neb) 1 ampule BID NEB INH Last administered on 05/02/17 07:47; Start 05/01/17 at 20:00; Stop 05/02/17 at 10:18; Status DC Furosemide (Lasix Inj) 20 mg STAT ONCE IV PUSH Last administered on 05/02/17 08:40; Start 05/02/17 at 08:30; Stop 05/02/17 at 08:37; Status DC Etomidate (Amidate Inj) 20 mg STK-MED ONCE .ROUTE Last administered on 12:48; Start 05/02/17 at 09:23; Stop 05/02/17 at 09:24; Status DC Dextrose (D50w (Vial) Inj) 25 ml UNSCH PRN IV PUSH HYPOGLYCEMIA-SEE COMMENTS; Start 05/02/17 at 10:00; Stop 05/16/17 at 08:09; Status DC Insulin Human Regular (NovoLIN R SUPPLEMENTAL SCALE) 1 Q6HR SQ Last administered on 05/04/17 18:00; Start 05/02/17 at 12:00; Stop 05/16/17 at 08:09 ; Status DC Chlorhexidine Gluconate (Peridex 0.12% Liq) 15 ml BID@08,20 MT Last administered on 8/4/17at 20:00; Start 05/02/17 at 20:00 Magnesium Oxide 800 mg 800 mg UNSCH PRN PO For Magnesium 1.2 - 1.6 mg/dL; Start 05/02/17 at 10:00; Stop 05/03/17 at 13:51; Status DC Magnesium Sulfate 4 gm/Sodium Chloride 100 ml @ 50 mls/hr UNSCH PRN IV For Magnesium 0.9 - 1.1 mg/dL; Start 05/02/17 at 10:00; Stop 05/03/17 at 13:51; Status DC Magnesium Sulfate 2 gm/Sodium Chloride 100 ml @ 50 mls/hr UNSCH PRN IV For Magnesium 1.2 - 1.6 mg/dL; Start 05/02/17 at 10:00; Stop 05/03/17 at 13:51; Status DC Potassium Chloride 100 ml @ 50 mls/hr Q2H PRN IV For Potassium 2.8 - 3.2 mEq/L ; Start 05/02/17 at 10:00; Stop 05/03/17 at 13:51; Status DC Potassium Chloride 100 ml @ 50 mls/hr Q2H PRN IV For Potassium 3.3 - 3.5 mEq/L ; Start 05/02/17 at 10:00; Stop 05/03/17 at 13:51; Status DC Potassium Chloride 100 ml @ 50 mls/hr Q2H PRN IV For Potassium 2.8 - 3.2 mEq/L ; Start 05/02/17 at 10:00; Stop 05/03/17 at 13:51; Status DC Potassium Chloride (KCl 40 Meq Premix Inj) 100 ml @ 25 mls/hr UNSCH PRN IV For Potassium 3.3 - 3.5 mEq/L; Start 05/02/17 at 10:00; Stop 05/03/17 at 13:51; Status DC Potassium Phosphate (K-Phos) 2,000 mg Q4H PRN PO For Phosphorus < 2.5 mg/dL; Start 05/02/17 at 10:00; Stop 05/03/17 at 13:51; Status DC Potassium Phosphate 2000 mg 2,000 mg UNSCH PRN PO/TUBE SEE LABEL COMMENTS; Start 05/02/17 at 10:00; Stop 05/03/17 at 13:51; Status DC Potassium Phosphate 30 mmol/ Sodium Chloride 260 ml @ 42 mls/hr UNSCH PRN IV SEE LABEL COMMENTS; Start 05/02/17 at 10:00; Stop 05/03/17 at 13:52; Status DC Sodium Phosphate/ Sodium Chloride (Sodium Phosphate Inj/NS 250 ml Inj) 250 ml @ 42 mls/hr UNSCH PRN IV For Phosphorus < 2.5 mg/dL; Start 05/02/17 at 10:00; Stop 05/03/17 at 13:52; Status DC Albuterol/ Ipratropium (Duoneb Neb) 1 ampule Q6HR NEB INH Last administered on 05/06/17 03:23; Start 05/02/17 at 10:00; Stop 05/06/17 at 10:00; Status DC Albuterol/ Ipratropium 1 ampule 1 ampule Q2HR NEB PRN INH WHEEZING Last administered on 05/08/17 08:08; Start 05/02/17 at 10:00 Fentanyl Citrate 250 ml @ 0 mls/hr TITRATE IV Last administered on 05/10/17 05 :36; Start 05/02/17 at 10:00 Propofol (Diprivan 1000 Mg/100ml Inj) 100 ml @ 0 mls/hr TITRATE IV Last administered on 05/10/17 06:54; Start 05/02/17 at 10:00 Iohexol 75 ml 75 ml STK-MED ONCE IV Last administered on 05/02/17 11:31; Start 05/02/17 at 11:31; Stop 05/02/17 at 11:32; Status DC Cefepime HCl 2000 mg/Sodium Chloride 100 ml @ 200 mls/hr Q12H IV Last administered on 05/05/17 02:43; Start 05/02/17 at 15:00; Stop 05/05/17 at 11:53 ; Status DC Vancomycin HCl/ Sodium Chloride (Vancomycin Inj/ NS 250 ml Inj) 250 ml @ 250 mls/hr ONCE ONCE IV Last administered on 05/02/17 16:14; Start 05/02/17 at 15 :00; Stop 05/02/17 at 15:59; Status DC Heparin Sodium (Porcine) (Heparin Inj) 5,000 units ONCE ONCE IV Last administered on 05/02/17 15:35; Start 05/02/17 at 16:00; Stop 05/02/17 at 16:01 ; Status DC Miscellaneous Information Patient in critical care unit? Ass... [id number] .XX Last administered on 05/02/17 17:30; Start 05/02/17 at 17:15 Chlorhexidine Gluconate (Chlorhexidine 2% Cloth) 3 pack DAILY@04 TOPICAL Last administered on 05/07/17 03:45; Start 05/03/17 at 04:00; Stop 05/07/17 at 04:01 ; Status DC Chlorhexidine Gluconate 3 pack 3 pack UNSCH PRN TOPICAL HYGIENIC CARE; Start at 17:15; Stop 05/07/17 at 17:08; Status DC Alteplase, Recombinant/ Syringe / Bag (Activase Drip/ Syringe/Bag) 49.9999 ml @ 50 mls/hr ONCE ONCE IV Last administered on 05/02/17 19:58; Start 05/02/17 at 19:15; Stop 05/02/17 at 20:14; Status DC Sodium Chloride (NS Inj) 30 ml ONCE ONCE IVF Last administered on 05/02/17 19 :15; Start 05/02/17 at 19:15; Stop 05/02/17 at 19:28; Status DC Miscellaneous Medication Thrombolysis plan for submass... ONCE ONCE OTHER Last administered on 05/02/17 19:15; Start 05/02/17 at 19:15; Stop 05/02/17 at 19:28; Status DC Heparin Sodium/ Dextrose 250 ml @ 0 mls/hr TITRATE IV Last administered on 07:49; Start 05/03/17 at 02:00 Epinephrine HCl/ Dextrose (Adrenalin (1:1000) Inj/D5W Inj) 250 ml @ 30 mls/hr TITRATE IV Last administered on 05/04/17 09:43; Start 05/03/17 at 10:15; Stop 05/07/17 at 16:44; Status DC Calcium Acetate 2668 mg 2,668 mg TID PO Last administered on 05/18/17 18:36; Start 05/03/17 at 09:00 Epoprostenol Sodium/Sodium Chloride (Flolan (30,000 Ng/ml) Neb/NS Inj) 100 ml @ 8 mls/hr Q8H NEB Last administered on 05/04/17 00:17; Start 05/03/17 at 09:00 ; Stop 05/04/17 at 14:14; Status DC Lidocaine HCl 50 ml 50 ml STK-MED ONCE .ROUTE ; Start 05/03/17 at 12:21; Stop at 12:22; Status DC Epoprostenol Sodium 40 ml/ Sodium Chloride 100 ml @ 8 mls/hr Q8H NEB Last administered on 05/06/17 06:04; Start 05/04/17 at 15:00; Stop 05/06/17 at 12:43 ; Status DC Calcium Gluconate 2 gm/Dextrose 120 ml @ 120 mls/hr ONCE ONCE IV Last administered on 05/04/17 20:00; Start 05/04/17 at 20:00; Stop 05/04/17 at 20:59 ; Status DC Cefepime HCl/ Sodium Chloride (Maxipime Inj/NS Inj) 100 ml @ 200 mls/hr Q24H IV Last administered on 05/08/17 01:36; Start 05/06/17 at 03:00; Stop at 23:00; Status DC Allopurinol (Zyloprim) 200 mg DAILY PO Last administered on 05/18/17 14:23; Start 05/06/17 at 09:00 Artificial Tears (Tears Naturale Opth Soln) 1 drop Q8H EACH EYE Last administered on 05/07/17 10:06; Start 05/05/17 at 18:00; Stop 05/07/17 at 12:11 ; Status DC Fentanyl Citrate (fentaNYL INJ) 100 mcg STK-MED ONCE IV ; Start 04/22/17 at 12: 00; Stop 05/06/17 at 12:46; Status DC Propofol (Diprivan 200 Mg/20 ml Inj) 200 mg STK-MED ONCE IV ; Start 04/22/17 at 12:00; Stop 05/06/17 at 12:46; Status DC Phenylephrine HCl (Neosynephrine/ NS 1000 Mcg/10ml Syr) 1,000 mcg STK-MED ONCE IV ; Start 04/22/17 at 12:00; Stop 05/06/17 at 12:47; Status DC Ondansetron HCl (Zofran Inj) 4 mg STK-MED ONCE IV PUSH ; Start 04/22/17 at 12:00 ; Stop 05/06/17 at 12:47; Status DC Pantoprazole Sodium (Protonix Inj) 40 mg DAILY IV PUSH Last administered on 05/16 11:07; Start 05/07/17 at 12:00 Artificial Tears 1 applic 1 applic Q8H EACH EYE Last administered on 05/18/17 17:03; Start 05/07/17 at 18:00 Sodium Chloride (NS 1000 ml Inj) 1,000 ml @ 0 mls/hr TITRATE PRN IV WITH DIALYSIS Last administered on 05/11/17 18:29; Start 05/07/17 at 18:00 Heparin Sodium (Porcine) 8000 units 8,000 units UNSCH PRN IV FLUSH WITH DIALYSIS; Start 05/07/17 at 18:00 Sodium Chloride 1,000 ml @ 200 mls/hr Q5H PRN IV WITH DIALYSIS; Start 05/07/17 at 18:00 Sodium Chloride (NS 250 ml Inj) 200 ml @ 0 mls/hr UNSCH PRN IV WITH DIALYSIS; Start 05/07/17 at 18:00 Mannitol (Mannitol Inj) 12.5 gm UNSCH PRN IV WITH DIALYSIS; Start 05/07/17 at 18:00 Albumin Human (Albumin 25% Inj) 25 gm UNSCH PRN IV WITH DIALYSIS; Start at 18:00 Sodium Chloride (NS Flush) 5 ml UNSCH PRN IV FLUSH WITH DIALYSIS; Start at 18:00 Heparin Sodium (Porcine) (Heparin Inj) Dwell Heparin to f... UNSCH PRN OTHER WITH DIALYSIS Last administered on 05/15/17 10:50; Start 05/07/17 at 18:00 Gentamicin Sulfate (Gentamicin (Dialysis) Inj) 10 mg UNSCH PRN OTHER WITH DIALYSIS Last administered on 05/15/17 10:51; Start 05/07/17 at 18:00 Gelatin (Gelfoam 12 Mm/7 Mm Top) 1 foam UNSCH PRN TOPICAL WITH DIALYSIS; Start 05/07/17 at 18:00 Ondansetron HCl (Zofran Inj) 4 mg UNSCH PRN IV NAUSEA OR VOMITING; Start at 18:00 Acetaminophen (Tylenol) 650 mg UNSCH X1 PRN PO WITH DIALYSIS Last administered on 05/08/17 10:07; Start 05/07/17 at 18:00; Stop 05/14/17 at 17:59; Status DC Diphenhydramine HCl (Benadryl) 25 mg UNSCH PRN PO WITH DIALYSIS; Start at 18:00 Nitroglycerin (Nitrostat Sl) 0.4 mg UNSCH PRN SL WITH DIALYSIS; Start 05/07/17 at 18:00 Clonidine (Catapres) 0.1 mg UNSCH PRN PO WITH DIALYSIS; Start 05/07/17 at 18:00 Polyethylene Glycol (Miralax) 17 gm DAILY PO Last administered on 05/10/17 07: 52; Start 05/08/17 at 09:00; Stop 05/13/17 at 17:16; Status DC Lactulose (Lactulose Liq) 30 ml BID PO Last administered on 05/10/17 07:51; Start 05/08/17 at 09:00; Stop 05/13/17 at 17:16; Status DC Bisacodyl (Dulcolax Supp) 10 mg DAILY PRN RECTAL CONSTIPATION; Start 05/08/17 at 08:15; Stop 05/08/17 at 08:16; Status DC Diatrizoate Meglum/ Diatrizoate Sod ( Gastroview Liq) 18 ml ONCE ONCE PO Last administered on 05/09/17 16:42; Start 05/09/17 at 14:15; Stop 05/09/17 at 14:16; Status DC Heparin Sodium (Porcine) 300 units 300 units NOW ONCE IV ; Start 05/09/17 at 18 :30; Stop 05/09/17 at 18:31; Status DC Potassium Chloride (KCl 20 Meq Premix Inj) 100 ml @ 50 mls/hr BOLUS ONCE IV Last administered on 05/10/17 13:31; Start 05/10/17 at 12:30; Stop 05/10/17 at 14:29; Status DC Sucralfate 1 gm 1 gm Q8HR PO Last administered on 05/13/17 04:46; Start at 14:00; Stop 05/13/17 at 13:59; Status DC Potassium Chloride (KCl 20 Meq Premix Inj) 100 ml @ 50 mls/hr ONCE ONCE IV Last administered on 05/11/17 08:54; Start 05/11/17 at 08:30; Stop 05/11/17 at 10:29; Status DC Metronidazole (Flagyl) 500 mg Q8HR PO Last administered on 05/19/17 05:55; Start 05/11/17 at 14:00; Stop 05/25/17 at 12:00 Morphine Sulfate 4 mg 4 mg NOW ONCE IV PUSH Last administered on 05/12/17 09: 58; Start 05/12/17 at 09:45; Stop 05/12/17 at 09:46; Status DC Potassium Chloride (KCl 40 Meq Premix Inj) 100 ml @ 25 mls/hr ONCE ONCE IV Last administered on 05/12/17 13:51; Start 05/12/17 at 13:45; Stop 05/12/17 at 17: 44; Status DC Vancomycin HCl (VANCOMYCIN for oral use only) 500 mg QID PO Last administered on 05/18/17 21:44; Start 05/13/17 at 13:00; Stop 05/25/17 at 23:00 Dronabinol (Marinol) 5 mg BID@11,16 PO Last administered on 05/17/17 16:53; Start 05/14/17 at 16:00 Heparin Sodium (Porcine) (*HEPARIN INJ Periprocedural ONLY) 10,000 units STK- MED ONCE .ROUTE Last administered on 05/15/17 15:50; Start 05/15/17 at 15:24; Stop 05/15/17 at 15:25; Status DC Sodium Chloride (NS Flush) UNSCH PRN IVF SEE PROTOCOL; Start 05/15/17 at 16:00 Heparin Sodium (Porcine) (Heparin Inj) UNSCH PRN IV FLUSH SEE PROTOCOL; Start 05/15/17 at 16:00 Iohexol (Omnipaque 350 Inj) 10 ml STK-MED ONCE IV Last administered on 15:50; Start 05/15/17 at 20:42; Stop 05/15/17 at 20:43; Status DC Potassium Chloride (KCl) 30 meq ONCE ONCE PO Last administered on 05/16/17 11: 06; Start 05/16/17 at 09:00; Stop 05/16/17 at 09:01; Status DC Dexamethasone (Decadron) 40 mg ONCE ONCE PO ; Start 05/16/17 at 13:00; Stop 05/16 at 13:01; Status DC Potassium Chloride (KCl) 30 meq ONCE ONCE PO Last administered on 05/17/17 08: 57; Start 05/17/17 at 07:45; Stop 05/17/17 at 07:46; Status DC Potassium Chloride (KCl) 20 meq ONCE ONCE PO Last administered on 05/17/17 15: 00; Start 05/17/17 at 13:00; Stop 05/17/17 at 13:01; Status DC Granisetron HCl 1 mg 1 mg ONCE ONCE IV PUSH Last administered on 05/18/17 17: 02; Start 05/18/17 at 16:30; Stop 05/18/17 at 16:31; Status DC Dexamethasone Sodium Phosphate/ Sodium Chloride (Decadron Inj/NS Inj) 55 ml @ 220 mls/hr ONCE ONCE IV Last administered on 05/18/17 17:02; Start 05/18/17 at 16:30; Stop 05/18/17 at 16:44; Status DC Doxorubicin HCl 91 mg 91 mg ONCE ONCE IV PUSH Last administered on 05/18/17 17 :35; Start 05/18/17 at 17:00; Stop 05/18/17 at 17:01; Status DC Vincristine Sulfate 2 mg/ Sodium Chloride 52 ml @ 312 mls/hr ONCE ONCE IV Last administered on 05/18/17 17:50; Start 05/18/17 at 17:30; Stop 05/18/17 at 17: 39; Status DC Cyclophosphamide/ Sodium Chloride (Cytoxan Inj/NS 500 ml Inj) 500 ml @ 500 mls/ hr ONCE ONCE IV Last administered on 05/18/17 18:08; Start 05/18/17 at 18:00; Stop 05/18/17 at 18:59; Status DC Prednisone 91 mg 91 mg HS PO Last administered on 05/18/17 21:44; Start at 21:00; Stop 05/22/17 at 21:01 Sodium Chloride (NS 250 ml Inj) 250 ml @ 0 mls/hr ONCE ONCE IV Last administered on 05/18/17 17:00; Start 05/18/17 at 17:00; Stop 05/18/17 at 17:01; Status DC A/P Assessment and Plan A/P Acute Hypoxic Respiratory Failure-resolved --stable on RA Acute Submassive Pulmonary Embolism Right Heart Dysfunction Global severe left ventricular systolic dysfunction Cardiogenic Shock-resolved -- 2d echo 05/02: EF 30-35%, RV dysfunction with dilation --Repeat ECHO limited study scheduled on 05/09-RV function appears to have normalized, question of interatrial shunt for which cardiology consulted-d/w Dr. Taveras, recommended that once off anticoagulation, would need to be on ASA and require f/u echo periodically for evaluation. Acute Kidney Injury Hypokalemia-improved -- likely secondary to cardiogenic shock -HD initiated. - Nephrology following, Dr. 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 -Expanded bowel regimen MiraLAX, lactulose. Large Cell B-cell lymphoma Pulmonary Embolism anemia of chronic disease C. difficile colitis -- hematology/oncology following Dr. Connelly-chemo with CHOP regimen initiated. -- continue heparin drip. transition to Coumadin - per hematology. --continue Flagyl and Vanco- plan for 14 days- evaluated by ID . continue PT. Prophylaxis: DVT: SCDs, heparin drip GI: protonix Catalina Eller MD May 19, 2017 09:13
--- NOTE | 2017-05-19 12:12 | PD.ONC.PN ---
Subjective Subjective Remarks Afebrile overnight. Resting in bed. Mostly non-verbal. Nods his head yes or no in answer to my questions. Still eating very little. Objective Data Date Time Temp Pulse Resp B/P Pulse Ox O2 Delivery O2 Flow Rate FiO2 05/19/17 08:00 97.6 70 18 107/57 94 05/19/17 04:00 97.0 85 18 110/75 95 05/19/17 04:00 82 05/19/17 00:00 83 05/19/17 00:00 97.6 88 18 120/69 96 05/18/17 20:19 21 05/18/17 20:00 97.1 81 18 115/67 96 05/18/17 20:00 84 05/18/17 18:00 97.0 82 16 118/66 96 05/18/17 16:20 89 05/19/17 05/19/17 05/19/17 07:00 15:00 23:00 Output Total 300 ml Balance -300 ml Result Diagram: 05/19/1772305/19/1724 Laboratory Results Laboratory Tests Test 05/19/17 07:24 White Blood Count 3.2 TH/MM3 Red Blood Count 2.47 MIL/MM3 Hemoglobin 7.2 GM/DL Hematocrit 21.4 % Mean Corpuscular Volume 86.4 FL Mean Corpuscular Hemoglobin 29.1 PG Mean Corpuscular Hemoglobin 33.7 % Concent Red Cell Distribution Width 18.2 % Platelet Count 293 TH/MM3 Mean Platelet Volume 6.9 FL Neutrophils (%) (Auto) 92.1 % Lymphocytes (%) (Auto) 6.2 % Monocytes (%) (Auto) 1.6 % Eosinophils (%) (Auto) 0.0 % Basophils (%) (Auto) 0.1 % Neutrophils # (Auto) 3.0 TH/MM3 Lymphocytes # (Auto) 0.2 TH/MM3 Monocytes # (Auto) 0.1 TH/MM3 Eosinophils # (Auto) 0.0 TH/MM3 Basophils # (Auto) 0.0 TH/MM3 CBC Comment DIFF FINAL Differential Comment Activated Partial 72.4 SEC Thromboplast Time Sodium Level 134 MEQ/L Potassium Level 3.4 MEQ/L Chloride Level 96 MEQ/L Carbon Dioxide Level 24.5 MEQ/L Anion Gap 14 MEQ/L Blood Urea Nitrogen 33 MG/DL Creatinine 5.72 MG/DL Estimat Glomerular Filtration 13 ML/MIN Rate Random Glucose 121 MG/DL Calcium Level 8.7 MG/DL Total Bilirubin 0.8 MG/DL Aspartate Amino Transf 12 U/L (AST/SGOT) Alanine Aminotransferase 6 U/L (ALT/SGPT) Alkaline Phosphatase 90 U/L Lactate Dehydrogenase 352 U/L Total Protein 5.9 GM/DL Albumin 2.1 GM/DL Administered Medications Medications (Trade) Dose Ordered Sig/Shyla Route PRN Reason Start Time Stop Time Status Last Admin Dose Admin Sodium Chloride (NS Flush) 2 ml UNSCH PRN IV FLUSH FLUSH AFTER USING IV ACCESS 04/18/17 17:30 04/21/17 22:27 Hydralazine HCl (Apresoline Inj) 10 mg Q6HR PRN IV PUSH SBP>160, DBP>90 04/21/17 17:00 04/27/17 10:15 Nifedipine (Procardia Xl) 90 mg DAILY PO 04/28/17 09:00 05/19/17 09:00 Clonidine (Catapres) 0.1 mg Q6H PRN PO SBP>160, DBP>90 04/27/17 15:00 04/29/17 08:07 Ondansetron HCl (Zofran Inj) 4 mg Q6HR PRN IV PUSH NAUSEA OR VOMITING 04/30/17 11:30 05/07/17 10:06 Promethazine HCl (Phenergan Inj) 25 mg Q6H PRN IM NAUSEA OR VOMITING 04/30/17 11:30 05/01/17 13:27 Acetaminophen/ Hydrocodone Bitart ([place] 5-325 Mg) 1 tab Q6H PRN PO PAIN SCALE 1 TO 10 04/30/17 11:30 05/12/17 02:48 Chlorhexidine Gluconate 15 ml 15 ml BID@08,20 MT 05/02/17 20:00 05/15/17 20:00 Fentanyl Citrate 250 ml @ 0 mls/hr TITRATE IV 05/02/17 10:00 05/10/17 05:36 Propofol (Diprivan 1000 Mg/100ml Inj) 100 ml @ 0 mls/hr TITRATE IV 05/02/17 10:00 05/10/17 06:54 Miscellaneous Information Patient in critical care unit? Ass... [id number] .XX 05/02/17 17:15 05/02/17 17:30 Heparin Sodium/ Dextrose (Heparin-D5W Inj) 250 ml @ 0 mls/hr TITRATE IV 05/03/17 02:00 05/18/17 07:49 Calcium Acetate (Phoslo) 2,668 mg TID PO 05/03/17 09:00 05/19/17 09:00 Allopurinol (Zyloprim) 200 mg DAILY PO 05/06/17 09:00 05/19/17 09:00 Pantoprazole Sodium (Protonix Inj) 40 mg DAILY IV PUSH 05/07/17 12:00 05/19/17 09:00 Artificial Tears 1 applic 1 applic Q8H EACH EYE 05/07/17 18:00 05/19/17 10:00 Sodium Chloride (NS 1000 ml Inj) 1,000 ml @ 0 mls/hr TITRATE PRN IV WITH DIALYSIS 05/07/17 18:00 05/11/17 18:29 Heparin Sodium (Porcine) (Heparin Inj) Dwell Heparin to f... UNSCH PRN OTHER WITH DIALYSIS 05/07/17 18:00 05/15/17 10:50 Gentamicin Sulfate (Gentamicin (Dialysis) Inj) 10 mg UNSCH PRN OTHER WITH DIALYSIS 05/07/17 18:00 05/15/17 10:51 Metronidazole (Flagyl) 500 mg Q8HR PO 05/11/17 14:00 05/25/17 12:00 05/19/17 05:55 Vancomycin HCl (VANCOMYCIN for oral use only) 500 mg QID PO 05/13/17 13:00 05/25/17 23:00 05/19/17 09:00 Dronabinol (Marinol) 5 mg BID@11,16 PO 05/14/17 16:00 05/17/17 16:53 Prednisone (Deltasone) 91 mg HS PO 05/18/17 21:00 05/22/17 21:01 05/18/17 21:44 Objective Remarks GENERAL: chronically ill male lying in bed in nad. SKIN: Warm and dry. HEAD: Normocephalic. EYES: No injection or drainage. NECK: Supple, trachea midline. CARDIOVASCULAR: Regular rate and rhythm RESPIRATORY: Breath sounds equal bilaterally. No accessory muscle use. GASTROINTESTINAL: Abdomen soft, non-tender, nondistended. EXTREMITIES: No cyanosis, or edema. NEUROLOGICAL: sleeping on approach but easily awakened. Assessment/Plan Problem List: (1) Non-Hodgkin lymphoma Status: Acute Plan: --Has aggressive triple hit lymphoma. --Received Rituxan x1. --Neck adenopathy relatively stable. --05/18-->CHOP chemotherapy (2) Pulmonary emboli Status: Acute Plan: --on heparin gtt-->coumadin --CTA showed large PE --s/p tpa therapy on 05.02. now on heparin gtt. (3) ALDO (acute kidney injury) Status: Acute Plan: Renal function has not recovered. Remains on HD. Minimal urine output. (4) Normocytic anemia Status: Acute Plan: --multifactorial due to chronic disease, renal failure --monitor and transfuse as needed (5) C. difficile colitis Status: Acute Plan: --on PO Vanco Assessment 47y/o male admitted with pancreatitis, found to have NHL. Plan 1. continue heparin gtt. start coumadin at low dose. 2. monitor CBC 3. continue Prednisone. Attending Statement The exam, history, and the medical decision-making described in the above note were completed with the assistance of the mid-level provider. I reviewed and agree with the findings presented. I attest that I had a [id number] encounter with the patient on the same day, and personally performed and documented my assessment and findings in the medical record. Seems stronger. Minimal urine output. Tolerated Cyc 1 CHOP. Left axillary mass softer. Uric acid slightly high, no evidence of TLS. Continue to monitor. Continue dialysis per nephrology. Problem Qualifiers (1) Non-Hodgkin lymphoma: Brenda Platt May 19, 2017 12:12 Ruslan Connelly MD May 19, 2017 14:59
[2017-05-19 14:01] LABS: INTERNATIONAL NORMALIZED RATIO 1.3 RATIO; PROTHROMBIN TIME - PATIENT 14.2 SEC (9.8-11.6)
[2017-05-19] MEDS: WARFARIN SOD 1 MG TAB PO SCH (14:16)
[2017-05-19] MEDS: DRONABINOL 5 MG CAP PO SCH ×2 (14:16→17:45)
--- NOTE | 2017-05-19 17:55 | HHI.NPPN ---
Subjective History of Present Illness 47-year-old male with no known past medical history who came to the hospital with complaint of nausea, vomiting and abdominal pain on April 18. I was called to see the patient because of elevated BUN and creatinine. The patient had a creatinine of 1.3 on presentation which improved to 0.7 and 0.8, then started increasing for last few days. Additional Remarks Patient is alert, not eating well, no SOB, clinically same. Objective Data Data 05/18/17 05/19/17 19:00 07:00 Output Total 2500 ml Balance -2500 ml Hemodialysis 2500 ml # Bowel Movements 1 1 Vital Signs Date Time Temp Pulse Resp B/P Pulse Ox O2 Delivery O2 Flow Rate FiO2 05/19/17 17:39 96 21 05/19/17 16:00 97.5 82 18 127/67 96 05/19/17 13:30 97 21 05/19/17 12:00 97.0 74 18 112/60 95 05/19/17 08:00 97.6 70 18 107/57 94 05/19/17 04:00 97.0 85 18 110/75 95 05/19/17 04:00 82 05/19/17 00:00 83 05/19/17 00:00 97.6 88 18 120/69 96 05/18/17 20:19 21 05/18/17 20:00 97.1 81 18 115/67 96 05/18/17 20:00 84 05/18/17 18:00 97.0 82 16 118/66 96 -: 05/19/17 0724 05/19/17 0724 Physical Exam General Appearance: Malnourished Eyes Eye Exam: Pupils Equal Throat Throat Exam: Oral Mucosa Farmer & Moist Pulmonary Resp Exam: Crackles, Rhonchi, Decreased Bases, Diminished Breath Sounds, Poor Inspiratory Effort Cardiology CV Exam: Regular, Normal Sinus Rhythm Gastrointestinal/Abdomen GI Exam: Soft, Non-Tender, Bowel Sounds Present, Distended Extremeties Extremities Exam: Trace Edema Neurologic Neuro Exam: Awake Assessment/Plan Assessment Summary: ALDO/Acute Renal Failure Problem List: (1) Non-Hodgkin lymphoma Plan: Hematology following, need for chemotherapy in the future. (2) Adenopathy (3) Pleural effusion (4) Shortness of breath (5) Pulmonary emboli Plan: on anticoagulation. (6) Acute pancreatitis (7) ALDO (acute kidney injury) Plan: He has become dialysis dependent. Plan Still no signs of renal recovery. Monitor renal function and urine output. Avoid nephrotoxins. Multiple medical problems, alcohol induced pancreatitis. HD done yesterday and tolerated well. Follow the urine out put and BMP. Urine out put is low, HD again in AM. Problem Qualifiers (1) Non-Hodgkin lymphoma: (2) Acute pancreatitis: Qualified Code: K85.20 - Alcohol-induced acute pancreatitis, unspecified complication status Leonid Haley MD May 19, 2017 17:55
[2017-05-19] MEDS ORDERED: WARFARIN SOD 1 MG TAB PO ONE (19:45)
[2017-05-19] MEDS: predniSONE 20 MG TAB PO SCH (22:13)
[2017-05-20] VITALS (11 sets, daily range): BP systolic 97–120; BP diastolic 58–75; PULSE 71–88; RESP 16–18; TEMP 96.3–97.4; O2SAT 93–98
[2017-05-20] MEDS: ARTIFICIAL TEARS OPTH OINT 3.5 APPLIC/3.5 GM TUBO EACH EYE SCH ×3 (02:00→17:43)
[2017-05-20 05:52] LABS: AUTOMATED NEUTROPHIL # 5.5 TH/MM3 (1.8-7.7); HEMO FLAGS DIFF FINAL; LYMPH % 2.1 % (9.0-44.0); LYMPHOCYTE # 0.1 TH/MM3 (1.0-4.8); MEAN CELL VOLUME 85.1 FL (80.0-100.0); MEAN CORPUSCULAR HEMOGLOBIN 29.9 PG (27.0-34.0); MEAN CORPUSCULAR HGB CONC 35.1 % (32.0-36.0); MONO % 1.8 % (0.0-8.0); NEUT % 96.1 % (16.0-70.0); PLATELET COUNT 277 TH/MM3 (150-450); RED BLOOD COUNT 2.47 MIL/MM3 (4.50-5.90); RED CELL DISTRIBUTION WIDTH 18.5 % (11.6-17.2); WHITE BLOOD COUNT 5.8 TH/MM3 (4.0-11.0)
[2017-05-20 05:58] LABS: APTT (PATIENT) 68.4 SEC (24.3-30.1); INTERNATIONAL NORMALIZED RATIO 1.2 RATIO; PROTHROMBIN TIME - PATIENT 13.6 SEC (9.8-11.6)
[2017-05-20] MEDS: metroNIDAZOLE 500 MG TAB PO SCH ×3 (06:04→22:52)
[2017-05-20] MEDS: CHLORHEXIDINE 0.12% (ORAL KIT) 15 ML CUP MT SCH ×2 (08:00→20:00)
--- NOTE | 2017-05-20 08:47 | HHI.PR ---
Subjective Remarks having his HD today. resting comfortably with no distress. denies pain. no fever. no new complaints. Objective Vitals Vital Signs Date Time Temp Pulse Resp B/P Pulse Ox O2 Delivery O2 Flow Rate FiO2 05/20/17 04:11 71 05/20/17 04:00 96.6 88 18 120/71 95 05/20/17 00:08 78 05/20/17 00:00 96.3 77 18 109/66 95 05/19/17 20:01 72 05/19/17 20:00 96.4 81 18 115/71 96 05/19/17 17:39 96 21 05/19/17 16:00 97.5 82 18 127/67 96 05/19/17 13:30 97 21 05/19/17 12:00 97.0 74 18 112/60 95 I/O 05/19/17 05/19/17 05/19/17 05/20/17 05/20/17 05/20/17 07:00 15:00 23:00 07:00 15:00 23:00 Intake Total 960 ml Output Total 300 ml 100 ml Balance 660 ml -100 ml Intake Oral 960 ml Output Urine Total 300 ml 100 ml # Bowel Movements 1 1 Result Diagram: 05/20/17 0500 05/19/17 0724 Imaging Last Impressions Chest X-Ray 05/16/17 0600 Signed Impressions: Service Date/Time: Tuesday, May 16, 2017 05:38 - CONCLUSION: 1. Bilateral lower lobe atelectasis versus pneumonia. Bilateral effusions. There has been no significant change when compared to the prior exam. Jadon Carroll MD Abdomen X-Ray 05/15/17 0600 Draft Impressions: Service Date/Time: Monday, May 15, 2017 04:29 - CONCLUSION: Findings of mild small bowel ileus. There has been no significant change when compared to the prior exam. Jadon Carroll MD Abdomen/Pelvis CT 05/09/17 0000 Signed Impressions: Service Date/Time: Tuesday, May 09, 2017 21:16 - CONCLUSION: 1. Diffusely distended loops of small bowel down to the cecum suggest ileus. 2. Evidence of mesenteric and retroperitoneal adenopathy. 3. Large bilateral pleural effusions , moderate amount of free fluid in the pelvis and mild ascites in the upper abdomen. 4. Abnormal appearance to the parenchyma of the right kidney with patchy areas of hyperdensity in a mosaic pattern. This of uncertain significance. The patient had iodinated contrast for a CT pulmonary angiogram 7 days ago; this could potentially represent residual parenchymal contrast which would be nonspecific, but raises the possibility of either obstruction or renal infarctions. Bryon Evans MD Renal Ultrasound 05/05/17 Signed Impressions: Service Date/Time: Friday, May 05, 2017 20:06 - CONCLUSION: 1. Kidneys are borderline echogenic which can be seen with medical renal disease. 2. No evidence of hydronephrosis. 3. Abdominal ascites. 4. Multiple dilated bowel loops. 5. Bilateral pleural effusions. Tray Patel MD Head CT 05/03/17 Signed Impressions: Service Date/Time: Wednesday, May 03, 2017 17:22 - CONCLUSION: No acute intracranial disease. No hemorrhage seen. Tray Patel MD CT Angiography 05/02/17 Signed Impressions: Service Date/Time: Tuesday, May 02, 2017 11:10 - CONCLUSION: 1. There is pulmonary embolus in the right pulmonary artery, right upper lobe and lower lobe branches. 2. Resorption of previously seen gas in the left axilla with fluid collection at this site with postprocedural change and possibly postprocedural hemorrhage not significantly changed in size. 3. Interval development of right lung airspace process may represent postobstructive pneumonia and there is mucus within the trachea not present yesterday. 4. Right pleural effusion is smaller and left pleural effusion is larger. 5. No change in bulky adenopathy. Leonor Chavez MD Upper Extremity Ultrasound 04/30/17 Signed Impressions: Service Date/Time: April 12:25 - CONCLUSION: There some superficial thrombosis of a vein in the forearm. The deep venous system is patent. Large fluid collection left axilla. Significant soft tissue edema throughout the upper arm. Rinku Hillman MD Thoracentesis Ultrasound 04/30/17 Signed Impressions: Service Date/Time: April 12:14 - CONCLUSION: Uncomplicated ultrasound guided thoracentesis. Tray Patel MD Port Line Insertion 04/27/17 Signed Impressions: Service Date/Time: Thursday, April 27, 2017 14:56 - CONCLUSION: 1. Bulky bilateral lower cervical lymphadenopathy. 2. Uncomplicated ultrasound and fluoroscopic guided implanted central venous port catheter placement as described in detail above. An 8 [place] [employer] port was placed. Liang Peralta MD Bone Biopsy CT 04/27/17 0000 Signed Impressions: Service Date/Time: Thursday, April 27, 2017 16:22 - CONCLUSION: 1. Uncomplicated CT guided bone marrow aspirate. 2. Uncomplicated CT guided bone marrow biopsy. Tray Patel MD Chest CT 04/25/17 0000 Signed Impressions: Service Date/Time: Wednesday, April 26, 2017 19:00 - CONCLUSION: The right pleural effusion is slightly larger on the left side has not changed. Extensive bulky adenopathy as before and malignancies such as lymphoma is suspected. Leonor Chavez MD Gall Bladder Ultrasound 04/22/17 0000 Signed Impressions: Service Date/Time: Saturday, April 22, 2017 07:35 - CONCLUSION: Small liver with focal abdomen only incompletely evaluated. Large right pleural effusion. effusion. Kirk Briceño MD FACR Abdomen CT 04/20/17 0000 Signed Impressions: Service Date/Time: Thursday, April 20, 2017 19:40 - CONCLUSION: Limited exam because of lack of intravenous contrast. Lymphoma is suspected. Pathological diagnosis could be obtained with ultrasound biopsy of the cervical, axillary or inguinal adenopathy. Kirk Briceño MD FACR Objective Remarks GENERAL: in no acute distress CARDIOVASCULAR: Regular rate and regular rhythm without murmurs, gallops, or rubs. RESPIRATORY: Clear to auscultation. Breath sounds equal bilaterally. No wheezes , rales, or rhonchi. GASTROINTESTINAL: Abdomen soft, non-tender, nondistended. Normal, active bowel sounds MUSCULOSKELETAL: Extremities without clubbing, cyanosis, or edema. NEURO: awake and alert Procedures 04/[address] excision biopsy 04/27- port placement 05/02-TPA 05/06-left IJ Vas-Cath placement endotracheal intubation Medications and IVs Current Medications Ondansetron HCl 4 mg 4 mg ONCE ONCE IVP Last administered on 04/18/17t 17:38; Start 04/18/17 at 17:30; Stop 04/18/17 at 17:31; Status DC Sodium Chloride (NS 1000 ml Inj) 1,000 ml @ 1,000 mls/hr Q1H IV Last administered on 04/18/17 17:38; Start 04/18/17 at 17:16; Stop 04/18/17 at 18:15; Status DC Sodium Chloride 2 ml 2 ml UNSCH PRN IV FLUSH FLUSH AFTER USING IV ACCESS Last administered on 04/21/17 22:27; Start 04/18/17 at 17:30 Sodium Chloride 1,000 ml @ 1,000 mls/hr Q1H IV Last administered on 04/18/17 18:40; Start 04/18/17 at 18:37; Stop 04/18/17 at 19:36; Status DC Potassium Chloride (KCl 20 Meq Premix Inj) 100 ml @ 50 mls/hr Q2H IV Last administered on 04/18/17 22:12; Start 04/18/17 at 19:00; Stop 04/18/17 at 22:59; Status DC Ondansetron HCl (Zofran Inj) 4 mg Q6H PRN IVP NAUSEA OR VOMITING Last administered on 04/26/17 06:04; Start 04/18/17 at 19:30; Stop 04/26/17 at 13:02 ; Status DC Morphine Sulfate (Morphine Inj) 2 mg Q3H PRN IV Pain 3-5; if unable to take PO ; Start 04/18/17 at 19:30; Status Cancel Morphine Sulfate (Morphine Inj) 4 mg Q3H PRN IV Pain 6-10;if unable to take PO ; Start 04/18/17 at 19:30; Status Cancel Naloxone HCl (Narcan Inj) 0.4 mg UNSCH PRN IV SEE LABEL COMMENTS; Start at 19:30 Senna/Docusate Sodium (Porsha-Colace) 1 tab BID PO Last administered on 07:52; Start 04/18/17 at 21:00; Stop 05/13/17 at 17:16; Status DC Magnesium Hydroxide (Milk Of Magnesia Liq) 30 ml Q12H PRN PO MILD - MODERATE CONSTIPATION Last administered on 05/09/17 08:01; Start 04/18/17 at 19:30; Stop 05/13/17 at 17:16; Status DC Sennosides (Senokot) 17.2 mg Q12H PRN PO MODERATE - SEVERE CONSTIPATION; Start 04/18/17 at 19:30; Stop 05/13/17 at 17:16; Status DC Bisacodyl (Dulcolax Supp) 10 mg DAILY PRN RECTAL SEVERE CONSITIPATION; Start at 19:30; Stop 05/13/17 at 17:16; Status DC Lactulose 30 ml 30 ml DAILY PRN PO SEVERE CONSITIPATION; Start 04/18/17 at 19:30 ; Stop 05/13/17 at 17:16; Status DC Potassium Chloride/Sodium Chloride 1,000 ml @ 125 mls/hr Q8H IV ; Start at 21:00; Stop 04/18/17 at 21:00; Status DC Potassium Chloride/Sodium Chloride 1,000 ml @ 83 mls/hr Q12H3M IV Last administered on 04/23/17 01:19; Start 04/19/17 at 02:00; Stop 04/23/17 at 09:04 ; Status DC Sodium Chloride (NS 1000 ml Inj) 1,000 ml @ 125 mls/hr Q8H IV Last administered on 04/18/17 20:00; Start 04/18/17 at 20:00; Stop 04/19/17 at 16:01; Status DC Pneumococcal Polyvalent Vaccine 25 mcg 25 mcg ONCE ONCE IM Last administered on 04/19/17 11:20; Start 04/19/17 at 09:00; Stop 04/19/17 at 09:01; Status DC Ceftriaxone Sodium/Sodium Chloride (Rocephin Inj/NS Inj) 100 ml @ 200 mls/hr Q24H IV Last administered on 04/24/17 12:51; Start 04/19/17 at 13:00; Stop at 14:33; Status DC Heparin Sodium (Porcine) (Heparin Inj) 5,000 units Q8HR SQ Last administered on 05/02/17 12:46; Start 04/19/17 at 14:00; Stop 05/19/17 at 10:23; Status DC Azithromycin (Zithromax) 500 mg Q24H PO Last administered on 04/24/17 12:51; Start 04/19/17 at 13:00; Stop 04/24/17 at 14:33; Status DC Clonidine (Catapres) 0.1 mg ONCE ONCE PO Last administered on 04/20/17 22:16 ; Start 04/20/17 at 21:45; Stop 04/20/17 at 21:46; Status DC Nifedipine (Procardia Xl) 30 mg DAILY PO Last administered on 04/25/17 09:42; Start 04/21/17 at 17:00; Stop 04/25/17 at 13:12; Status DC Hydralazine HCl 10 mg 10 mg Q6HR PRN IV PUSH SBP>160, DBP>90 Last administered on 04/27/17 10:15; Start 04/21/17 at 17:00 Cefazolin Sodium/ Sodium Chloride (Ancef Inj/NS Inj) 100 ml @ 200 mls/hr LOSS CONTROL REPRESENTATIVE IV ; Start 04/21/17 at 21:30; Stop 04/24/17 at 21:29; Status DC Midazolam HCl (Versed Inj) 2 mg STK-MED ONCE .ROUTE Last administered on 09:02; Start 04/22/17 at 09:02; Stop 04/22/17 at 09:03; Status DC Bupivacaine HCl/ Epinephrine Bitart (Sensorcaine-Epi 0.5% 50 ml Inj) 50 ml STK- MED ONCE INFIL ; Start 04/22/17 at 09:25; Stop 04/22/17 at 09:26; Status Cancel Albuterol Sulfate (*ALBUTEROL NEB PERIprocedure ONLY) 2.5 mg STK-MED ONCE NEB Last administered on 04/22/17 10:06; Start 04/22/17 at 10:06; Stop 04/22/17 at 10:07; Status DC Fentanyl Citrate (fentaNYL INJ) 200 mcg STK-MED ONCE .ROUTE ; Start 04/22/17 at 10:10; Stop 04/22/17 at 10:11; Status DC Bupivacaine HCl (Marcaine Pf 0.5% Inj) 30 ml STK-MED ONCE INFIL Last administered on 04/22/17 09:25; Start 04/22/17 at 09:25; Stop 04/22/17 at 10:49 ; Status DC Miscellaneous Information ALL NURSING DEPARTME... UNSCH PRN .XX SEE LABEL COMMENTS; Start 04/22/17 at 10:01; Stop 04/23/17 at 10:00; Status DC Dextrose/Sodium Chloride 1,000 ml @ 60 mls/hr [id number] IV Last administered on 04/24/17 06:40; Start 04/23/17 at 12:45; Stop 04/24/17 at 14:36; Status DC Potassium Chloride/Dextrose/ Sodium Chloride (KCl Inj/D5W-NS 1000 ml Inj) 1,015 ml @ 70 mls/hr [id number] IV Last administered on 04/25/17 05:34; Start at 16:00; Stop 04/25/17 at 13:12; Status DC Promethazine HCl (Phenergan Inj) 25 mg ONCE ONCE IM Last administered on 11:55; Start 04/25/17 at 08:00; Stop 04/25/17 at 08:01; Status DC Nifedipine 60 mg 60 mg DAILY PO Last administered on 04/27/17 10:02; Start at 09:00; Stop 04/27/17 at 14:48; Status DC Potassium Chloride/Dextrose/ Sodium Chloride (KCl Inj/D5W-NS 1000 ml Inj) 1,015 ml @ 60 mls/hr [id number] IV Last administered on 04/27/17 18:18; Start at 15:00; Stop 04/28/17 at 11:49; Status DC Promethazine HCl (Phenergan Inj) 12.5 mg Q8H PRN IM PERSISTENT NAUSEA Last administered on 04/30/17 04:34; Start 04/26/17 at 13:15; Stop 04/30/17 at 11:28 ; Status DC Allopurinol 300 mg 300 mg DAILY PO Last administered on 05/05/17 08:12; Start 04/27/17 at 09:00; Stop 05/05/17 at 12:10; Status DC Vancomycin HCl 1000 mg/Sodium Chloride 250 ml @ 250 mls/hr LOSS CONTROL REPRESENTATIVE IV Last administered on 04/27/17 13:49; Start 04/27/17 at 10:00; Stop 04/30/17 at 09:59 ; Status DC Cefazolin Sodium/ Dextrose (Ancef 2 Gm Premix) 50 ml @ 100 mls/hr LOSS CONTROL REPRESENTATIVE IV Last administered on 04/27/17 15:42; Start 04/27/17 at 10:00; Stop 04/30/17 at 09:59; Status DC Nifedipine (Procardia Xl) 90 mg DAILY PO Last administered on 05/19/17 09:00; Start 04/28/17 at 09:00 Clonidine (Catapres) 0.1 mg Q12HR PO ; Start 04/27/17 at 21:00; Status UNV Clonidine (Catapres) 0.1 mg Q6H PRN PO SBP>160, DBP>90 Last administered on 08:07; Start 04/27/17 at 15:00 Heparin Sodium (Porcine) (*HEPARIN CENTRAL FLUSH PERIprocedural ONLY) 500 units STK-MED ONCE IV FLUSH Last administered on 04/27/17 14:51; Start 04/27/17 at 14:51; Stop 04/27/17 at 14:52; Status DC Lidocaine/ Epinephrine (Xylocaine-Epi 1%-1:100,000 Inj) 20 ml STK-MED ONCE .ROUTE Last administered on 04/27/17 14:51; Start 04/27/17 at 14:51; Stop at 14:52; Status DC Midazolam HCl (Versed Inj) 5 mg STK-MED ONCE .ROUTE Last administered on 14:52; Start 04/27/17 at 14:52; Stop 04/27/17 at 14:53; Status DC Fentanyl Citrate 250 mcg 250 mcg STK-MED ONCE .ROUTE Last administered on 14:53; Start 04/27/17 at 14:53; Stop 04/27/17 at 14:54; Status DC Sodium Chloride (NS 1000 ml Inj) 1,000 ml @ 100 mls/hr Q10H IV Last administered on 04/29/17 17:55; Start 04/29/17 at 15:00; Stop 04/30/17 at 00:59 ; Status DC Acetaminophen (Tylenol) 650 mg ONCE ONCE PO Last administered on 04/30/17 16: 44; Start 04/30/17 at 13:00; Stop 04/30/17 at 13:01; Status DC Diphenhydramine HCl 50 mg 50 mg ONCE ONCE PO Last administered on 04/30/17 16 :43; Start 04/30/17 at 13:00; Stop 04/30/17 at 13:01; Status DC Rituximab/Sodium Chloride (Rituxan Inj/NS 500 ml Inj) 571.625 ml @ 0 mls/hr ONCE ONCE IV Last administered on 05/01/17 13:15; Start 04/30/17 at 14:00; Stop 04/30/17 at 14:01; Status DC Prednisone 115 mg 115 mg Q12H PO ; Start 04/30/17 at 13:00; Stop 05/01/17 at 11: 21; Status DC Dexamethasone Sodium Phosphate 20 mg/Granisetron HCl 1 mg/Sodium Chloride 56 ml @ 224 mls/hr Q24H IV ; Start 04/30/17 at 15:00; Stop 05/01/17 at 11:26; Status DC Potassium Chloride 100 ml @ 50 mls/hr BOLUS ONCE IV Last administered on 04/30 10:20; Start 04/30/17 at 10:00; Stop 04/30/17 at 11:59; Status DC Etoposide 95.5 mg/ Doxorubicin HCl 19.1 mg/ Vincristine Sulfate 0.764 mg/ Sodium Chloride 515.089 ml @ 21.462 mls/hr Q24H IV ; Start 04/30/17 at 15:00; Stop 05/18/17 at 13:46; Status DC Cyclophosphamide/ Sodium Chloride (Cytoxan Inj/NS 500 ml Inj) 500 ml @ 500 mls/ hr ONCE ONCE IV ; Start 05/04/17 at 14:00; Stop 05/04/17 at 14:59; Status DC Ondansetron HCl (Zofran Inj) 4 mg Q6HR PRN IV PUSH NAUSEA OR VOMITING Last administered on 05/07/17 10:06; Start 04/30/17 at 11:30 Promethazine HCl (Phenergan Inj) 25 mg Q6H PRN IM NAUSEA OR VOMITING Last administered on 05/01/17 13:27; Start 04/30/17 at 11:30 Acetaminophen/ Hydrocodone Bitart ([place] 5-325 Mg) 1 tab Q6H PRN PO PAIN SCALE 1 TO 10 Last administered on 05/12/17 02:48; Start 04/30/17 at 11:30 Albuterol/ Ipratropium (Duoneb Neb) 1 ampule ONCE ONCE NEB Last administered on 04/30/17 20:16; Start 04/30/17 at 19:45; Stop 04/30/17 at 20:11; Status DC Albuterol/ Ipratropium (Duoneb Neb) 1 ampule Q2HR NEB PRN NEB sob, wheeze; Start 04/30/17 at 20:45; Stop 05/02/17 at 10:14; Status DC Morphine Sulfate (Morphine Inj) 2 mg ONCE ONCE IV PUSH Last administered on 23:36; Start 04/30/17 at 23:30; Stop 04/30/17 at 23:31; Status DC Furosemide (Lasix Inj) 10 mg ONCE ONCE IV PUSH Last administered on 05/01/17 01:01; Start 05/01/17 at 00:00; Stop 05/01/17 at 00:01; Status DC Furosemide (Lasix Inj) 20 mg ONCE ONCE IV PUSH Last administered on 05/01/17 09:09; Start 05/01/17 at 07:45; Stop 05/01/17 at 07:52; Status DC Acetaminophen (Tylenol) 650 mg NOW ONCE PO Last administered on 05/01/17 10: 51; Start 05/01/17 at 10:45; Stop 05/01/17 at 10:46; Status DC Diphenhydramine HCl 50 mg 50 mg NOW ONCE PO Last administered on 05/01/17 10: 51; Start 05/01/17 at 10:45; Stop 05/01/17 at 10:46; Status DC Rituximab/Sodium Chloride (Rituxan Inj/NS 500 ml Inj) 571.625 ml @ 0 mls/hr ONCE ONCE IV ; Start 05/01/17 at 12:00; Stop 05/01/17 at 12:01; Status DC Acetaminophen (Tylenol) 650 mg ONCE ONCE PO ; Start 05/01/17 at 11:30; Stop at 11:31; Status DC Diphenhydramine HCl (Benadryl) 50 mg ONCE ONCE PO ; Start 05/01/17 at 11:30; Stop 05/01/17 at 11:31; Status DC Prednisone 115 mg 115 mg Q12HR PO Last administered on 05/02/17 20:08; Start 05/01/17 at 11:00; Stop 05/05/17 at 21:01; Status DC Dexamethasone Sodium Phosphate/ Granisetron HCl/ Sodium Chloride (Decadron Inj/ Kytril Inj/NS Inj) 56 ml @ 224 mls/hr Q24H IV ; Start 05/01/17 at 11:30; Stop 05/06/17 at 11:44; Status DC Metoclopramide HCl (Reglan Inj) 10 mg Q8HR IV PUSH Last administered on 04:59; Start 05/01/17 at 15:30; Stop 05/09/17 at 19:03; Status DC Pantoprazole Sodium (Protonix) 40 mg DAILY PO Last administered on 05/06/17 08 :17; Start 05/01/17 at 16:00; Stop 05/07/17 at 11:49; Status DC Furosemide (Lasix Inj) 20 mg ONCE ONCE IV PUSH Last administered on 05/01/17 16:14; Start 05/01/17 at 15:30; Stop 05/01/17 at 15:31; Status DC Albuterol/ Ipratropium (Duoneb Neb) 1 ampule BID NEB INH Last administered on 05/02/17 07:47; Start 05/01/17 at 20:00; Stop 05/02/17 at 10:18; Status DC Furosemide (Lasix Inj) 20 mg STAT ONCE IV PUSH Last administered on 05/02/17 08:40; Start 05/02/17 at 08:30; Stop 05/02/17 at 08:37; Status DC Etomidate (Amidate Inj) 20 mg STK-MED ONCE .ROUTE Last administered on 12:48; Start 05/02/17 at 09:23; Stop 05/02/17 at 09:24; Status DC Dextrose (D50w (Vial) Inj) 25 ml UNSCH PRN IV PUSH HYPOGLYCEMIA-SEE COMMENTS; Start 05/02/17 at 10:00; Stop 05/16/17 at 08:09; Status DC Insulin Human Regular (NovoLIN R SUPPLEMENTAL SCALE) 1 Q6HR SQ Last administered on 05/04/17 18:00; Start 05/02/17 at 12:00; Stop 05/16/17 at 08:09 ; Status DC Chlorhexidine Gluconate (Peridex 0.12% Liq) 15 ml BID@08,20 MT Last administered on 05/15/17t 20:00; Start 05/02/17 at 20:00 Magnesium Oxide 800 mg 800 mg UNSCH PRN PO For Magnesium 1.2 - 1.6 mg/dL; Start 05/02/17 at 10:00; Stop 05/03/17 at 13:51; Status DC Magnesium Sulfate 4 gm/Sodium Chloride 100 ml @ 50 mls/hr UNSCH PRN IV For Magnesium 0.9 - 1.1 mg/dL; Start 05/02/17 at 10:00; Stop 05/03/17 at 13:51; Status DC Magnesium Sulfate 2 gm/Sodium Chloride 100 ml @ 50 mls/hr UNSCH PRN IV For Magnesium 1.2 - 1.6 mg/dL; Start 05/02/17 at 10:00; Stop 05/03/17 at 13:51; Status DC Potassium Chloride 100 ml @ 50 mls/hr Q2H PRN IV For Potassium 2.8 - 3.2 mEq/L ; Start 05/02/17 at 10:00; Stop 05/03/17 at 13:51; Status DC Potassium Chloride 100 ml @ 50 mls/hr Q2H PRN IV For Potassium 3.3 - 3.5 mEq/L ; Start 05/02/17 at 10:00; Stop 05/03/17 at 13:51; Status DC Potassium Chloride 100 ml @ 50 mls/hr Q2H PRN IV For Potassium 2.8 - 3.2 mEq/L ; Start 05/02/17 at 10:00; Stop 05/03/17 at 13:51; Status DC Potassium Chloride (KCl 40 Meq Premix Inj) 100 ml @ 25 mls/hr UNSCH PRN IV For Potassium 3.3 - 3.5 mEq/L; Start 05/02/17 at 10:00; Stop 05/03/17 at 13:51; Status DC Potassium Phosphate (K-Phos) 2,000 mg Q4H PRN PO For Phosphorus < 2.5 mg/dL; Start 05/02/17 at 10:00; Stop 05/03/17 at 13:51; Status DC Potassium Phosphate 2000 mg 2,000 mg UNSCH PRN PO/TUBE SEE LABEL COMMENTS; Start 05/02/17 at 10:00; Stop 05/03/17 at 13:51; Status DC Potassium Phosphate 30 mmol/ Sodium Chloride 260 ml @ 42 mls/hr UNSCH PRN IV SEE LABEL COMMENTS; Start 05/02/17 at 10:00; Stop 05/03/17 at 13:52; Status DC Sodium Phosphate/ Sodium Chloride (Sodium Phosphate Inj/NS 250 ml Inj) 250 ml @ 42 mls/hr UNSCH PRN IV For Phosphorus < 2.5 mg/dL; Start 05/02/17 at 10:00; Stop 05/03/17 at 13:52; Status DC Albuterol/ Ipratropium (Duoneb Neb) 1 ampule Q6HR NEB INH Last administered on 05/06/17 03:23; Start 05/02/17 at 10:00; Stop 05/06/17 at 10:00; Status DC Albuterol/ Ipratropium 1 ampule 1 ampule Q2HR NEB PRN INH WHEEZING Last administered on 05/08/17 08:08; Start 05/02/17 at 10:00 Fentanyl Citrate 250 ml @ 0 mls/hr TITRATE IV Last administered on 05/10/17 05 :36; Start 05/02/17 at 10:00 Propofol (Diprivan 1000 Mg/100ml Inj) 100 ml @ 0 mls/hr TITRATE IV Last administered on 05/10/17 06:54; Start 05/02/17 at 10:00 Iohexol 75 ml 75 ml STK-MED ONCE IV Last administered on 05/02/17 11:31; Start 05/02/17 at 11:31; Stop 05/02/17 at 11:32; Status DC Cefepime HCl 2000 mg/Sodium Chloride 100 ml @ 200 mls/hr Q12H IV Last administered on 05/05/17 02:43; Start 05/02/17 at 15:00; Stop 05/05/17 at 11:53 ; Status DC Vancomycin HCl/ Sodium Chloride (Vancomycin Inj/ NS 250 ml Inj) 250 ml @ 250 mls/hr ONCE ONCE IV Last administered on 05/02/17 16:14; Start 05/02/17 at 15 :00; Stop 05/02/17 at 15:59; Status DC Heparin Sodium (Porcine) (Heparin Inj) 5,000 units ONCE ONCE IV Last administered on 05/02/17 15:35; Start 05/02/17 at 16:00; Stop 05/02/17 at 16:01 ; Status DC Miscellaneous Information Patient in critical care unit? Ass... [id number] .XX Last administered on 05/02/17 17:30; Start 05/02/17 at 17:15 Chlorhexidine Gluconate (Chlorhexidine 2% Cloth) 3 pack DAILY@04 TOPICAL Last administered on 05/07/17 03:45; Start 05/03/17 at 04:00; Stop 05/07/17 at 04:01 ; Status DC Chlorhexidine Gluconate 3 pack 3 pack UNSCH PRN TOPICAL HYGIENIC CARE; Start at 17:15; Stop 05/07/17 at 17:08; Status DC Alteplase, Recombinant/ Syringe / Bag (Activase Drip/ Syringe/Bag) 49.9999 ml @ 50 mls/hr ONCE ONCE IV Last administered on 05/02/17 19:58; Start 05/02/17 at 19:15; Stop 05/02/17 at 20:14; Status DC Sodium Chloride (NS Inj) 30 ml ONCE ONCE IVF Last administered on 05/02/17 19 :15; Start 05/02/17 at 19:15; Stop 05/02/17 at 19:28; Status DC Miscellaneous Medication Thrombolysis plan for submass... ONCE ONCE OTHER Last administered on 05/02/17 19:15; Start 05/02/17 at 19:15; Stop 05/02/17 at 19:28; Status DC Heparin Sodium/ Dextrose 250 ml @ 0 mls/hr TITRATE IV Last administered on 07:49; Start 05/03/17 at 02:00 Epinephrine HCl/ Dextrose (Adrenalin (1:1000) Inj/D5W Inj) 250 ml @ 30 mls/hr TITRATE IV Last administered on 05/04/17 09:43; Start 05/03/17 at 10:15; Stop 05/07/17 at 16:44; Status DC Calcium Acetate 2668 mg 2,668 mg TID PO Last administered on 05/19/17 17:37; Start 05/03/17 at 09:00 Epoprostenol Sodium/Sodium Chloride (Flolan (30,000 Ng/ml) Neb/NS Inj) 100 ml @ 8 mls/hr Q8H NEB Last administered on 05/04/17 00:17; Start 05/03/17 at 09:00 ; Stop 05/04/17 at 14:14; Status DC Lidocaine HCl 50 ml 50 ml STK-MED ONCE .ROUTE ; Start 05/03/17 at 12:21; Stop at 12:22; Status DC Epoprostenol Sodium 40 ml/ Sodium Chloride 100 ml @ 8 mls/hr Q8H NEB Last administered on 05/06/17 06:04; Start 05/04/17 at 15:00; Stop 05/06/17 at 12:43 ; Status DC Calcium Gluconate 2 gm/Dextrose 120 ml @ 120 mls/hr ONCE ONCE IV Last administered on 05/04/17 20:00; Start 05/04/17 at 20:00; Stop 05/04/17 at 20:59 ; Status DC Cefepime HCl/ Sodium Chloride (Maxipime Inj/NS Inj) 100 ml @ 200 mls/hr Q24H IV Last administered on 05/08/17 01:36; Start 05/06/17 at 03:00; Stop at 23:00; Status DC Allopurinol (Zyloprim) 200 mg DAILY PO Last administered on 05/19/17 09:00; Start 05/06/17 at 09:00 Artificial Tears (Tears Naturale Opth Soln) 1 drop Q8H EACH EYE Last administered on 05/07/17 10:06; Start 05/05/17 at 18:00; Stop 05/07/17 at 12:11 ; Status DC Fentanyl Citrate (fentaNYL INJ) 100 mcg STK-MED ONCE IV ; Start 04/22/17 at 12: 00; Stop 05/06/17 at 12:46; Status DC Propofol (Diprivan 200 Mg/20 ml Inj) 200 mg STK-MED ONCE IV ; Start 04/22/17 at 12:00; Stop 05/06/17 at 12:46; Status DC Phenylephrine HCl (Neosynephrine/ NS 1000 Mcg/10ml Syr) 1,000 mcg STK-MED ONCE IV ; Start 04/22/17 at 12:00; Stop 05/06/17 at 12:47; Status DC Ondansetron HCl (Zofran Inj) 4 mg STK-MED ONCE IV PUSH ; Start 04/22/17 at 12:00 ; Stop 05/06/17 at 12:47; Status DC Pantoprazole Sodium (Protonix Inj) 40 mg DAILY IV PUSH Last administered on 05/19 09:00; Start 05/07/17 at 12:00 Artificial Tears 1 applic 1 applic Q8H EACH EYE Last administered on 05/19/17 10:00; Start 05/07/17 at 18:00 Sodium Chloride (NS 1000 ml Inj) 1,000 ml @ 0 mls/hr TITRATE PRN IV WITH DIALYSIS Last administered on 05/11/17 18:29; Start 05/07/17 at 18:00 Heparin Sodium (Porcine) 8000 units 8,000 units UNSCH PRN IV FLUSH WITH DIALYSIS; Start 05/07/17 at 18:00 Sodium Chloride 1,000 ml @ 200 mls/hr Q5H PRN IV WITH DIALYSIS; Start 05/07/17 at 18:00 Sodium Chloride (NS 250 ml Inj) 200 ml @ 0 mls/hr UNSCH PRN IV WITH DIALYSIS; Start 05/07/17 at 18:00 Mannitol (Mannitol Inj) 12.5 gm UNSCH PRN IV WITH DIALYSIS; Start 05/07/17 at 18:00 Albumin Human (Albumin 25% Inj) 25 gm UNSCH PRN IV WITH DIALYSIS; Start at 18:00 Sodium Chloride (NS Flush) 5 ml UNSCH PRN IV FLUSH WITH DIALYSIS; Start at 18:00 Heparin Sodium (Porcine) (Heparin Inj) Dwell Heparin to f... UNSCH PRN OTHER WITH DIALYSIS Last administered on 05/15/17 10:50; Start 05/07/17 at 18:00 Gentamicin Sulfate (Gentamicin (Dialysis) Inj) 10 mg UNSCH PRN OTHER WITH DIALYSIS Last administered on 05/15/17 10:51; Start 05/07/17 at 18:00 Gelatin (Gelfoam 12 Mm/7 Mm Top) 1 foam UNSCH PRN TOPICAL WITH DIALYSIS; Start 05/07/17 at 18:00 Ondansetron HCl (Zofran Inj) 4 mg UNSCH PRN IV NAUSEA OR VOMITING; Start at 18:00 Acetaminophen (Tylenol) 650 mg UNSCH X1 PRN PO WITH DIALYSIS Last administered on 05/08/17 10:07; Start 05/07/17 at 18:00; Stop 05/14/17 at 17:59; Status DC Diphenhydramine HCl (Benadryl) 25 mg UNSCH PRN PO WITH DIALYSIS; Start at 18:00 Nitroglycerin (Nitrostat Sl) 0.4 mg UNSCH PRN SL WITH DIALYSIS; Start 05/07/17 at 18:00 Clonidine (Catapres) 0.1 mg UNSCH PRN PO WITH DIALYSIS; Start 05/07/17 at 18:00 Polyethylene Glycol (Miralax) 17 gm DAILY PO Last administered on 05/10/17 07: 52; Start 05/08/17 at 09:00; Stop 05/13/17 at 17:16; Status DC Lactulose (Lactulose Liq) 30 ml BID PO Last administered on 05/10/17 07:51; Start 05/08/17 at 09:00; Stop 05/13/17 at 17:16; Status DC Bisacodyl (Dulcolax Supp) 10 mg DAILY PRN RECTAL CONSTIPATION; Start 05/08/17 at 08:15; Stop 05/08/17 at 08:16; Status DC Diatrizoate Meglum/ Diatrizoate Sod ( Gastroview Liq) 18 ml ONCE ONCE PO Last administered on 05/09/17 16:42; Start 05/09/17 at 14:15; Stop 05/09/17 at 14:16; Status DC Heparin Sodium (Porcine) 300 units 300 units NOW ONCE IV ; Start 05/09/17 at 18 :30; Stop 05/09/17 at 18:31; Status DC Potassium Chloride (KCl 20 Meq Premix Inj) 100 ml @ 50 mls/hr BOLUS ONCE IV Last administered on 05/10/17 13:31; Start 05/10/17 at 12:30; Stop 05/10/17 at 14:29; Status DC Sucralfate 1 gm 1 gm Q8HR PO Last administered on 05/13/17 04:46; Start at 14:00; Stop 05/13/17 at 13:59; Status DC Potassium Chloride (KCl 20 Meq Premix Inj) 100 ml @ 50 mls/hr ONCE ONCE IV Last administered on 05/11/17 08:54; Start 05/11/17 at 08:30; Stop 05/11/17 at 10:29; Status DC Metronidazole (Flagyl) 500 mg Q8HR PO Last administered on 05/20/17 06:04; Start 05/11/17 at 14:00; Stop 05/25/17 at 12:00 Morphine Sulfate 4 mg 4 mg NOW ONCE IV PUSH Last administered on 05/12/17 09: 58; Start 05/12/17 at 09:45; Stop 05/12/17 at 09:46; Status DC Potassium Chloride (KCl 40 Meq Premix Inj) 100 ml @ 25 mls/hr ONCE ONCE IV Last administered on 05/12/17 13:51; Start 05/12/17 at 13:45; Stop 05/12/17 at 17: 44; Status DC Vancomycin HCl (VANCOMYCIN for oral use only) 500 mg QID PO Last administered on 05/19/17 22:11; Start 05/13/17 at 13:00; Stop 05/25/17 at 23:00 Dronabinol (Marinol) 5 mg BID@11,16 PO Last administered on 05/19/17 17:45; Start 05/14/17 at 16:00 Heparin Sodium (Porcine) (*HEPARIN INJ Periprocedural ONLY) 10,000 units STK- MED ONCE .ROUTE Last administered on 05/15/17 15:50; Start 05/15/17 at 15:24; Stop 05/15/17 at 15:25; Status DC Sodium Chloride (NS Flush) UNSCH PRN IVF SEE PROTOCOL; Start 05/15/17 at 16:00 Heparin Sodium (Porcine) (Heparin Inj) UNSCH PRN IV FLUSH SEE PROTOCOL; Start 05/15/17 at 16:00 Iohexol (Omnipaque 350 Inj) 10 ml STK-MED ONCE IV Last administered on 15:50; Start 05/15/17 at 20:42; Stop 05/15/17 at 20:43; Status DC Potassium Chloride (KCl) 30 meq ONCE ONCE PO Last administered on 05/16/17 11: 06; Start 05/16/17 at 09:00; Stop 05/16/17 at 09:01; Status DC Dexamethasone (Decadron) 40 mg ONCE ONCE PO ; Start 05/16/17 at 13:00; Stop 05/16 at 13:01; Status DC Potassium Chloride (KCl) 30 meq ONCE ONCE PO Last administered on 05/17/17 08: 57; Start 05/17/17 at 07:45; Stop 05/17/17 at 07:46; Status DC Potassium Chloride (KCl) 20 meq ONCE ONCE PO Last administered on 05/17/17 15: 00; Start 05/17/17 at 13:00; Stop 05/17/17 at 13:01; Status DC Granisetron HCl 1 mg 1 mg ONCE ONCE IV PUSH Last administered on 05/18/17 17: 02; Start 05/18/17 at 16:30; Stop 05/18/17 at 16:31; Status DC Dexamethasone Sodium Phosphate/ Sodium Chloride (Decadron Inj/NS Inj) 55 ml @ 220 mls/hr ONCE ONCE IV Last administered on 05/18/17 17:02; Start 05/18/17 at 16:30; Stop 05/18/17 at 16:44; Status DC Doxorubicin HCl 91 mg 91 mg ONCE ONCE IV PUSH Last administered on 05/18/17 17 :35; Start 05/18/17 at 17:00; Stop 05/18/17 at 17:01; Status DC Vincristine Sulfate 2 mg/ Sodium Chloride 52 ml @ 312 mls/hr ONCE ONCE IV Last administered on 05/18/17 17:50; Start 05/18/17 at 17:30; Stop 05/18/17 at 17: 39; Status DC Cyclophosphamide/ Sodium Chloride (Cytoxan Inj/NS 500 ml Inj) 500 ml @ 500 mls/ hr ONCE ONCE IV Last administered on 05/18/17 18:08; Start 05/18/17 at 18:00; Stop 05/18/17 at 18:59; Status DC Prednisone 91 mg 91 mg HS PO Last administered on 05/19/17 22:13; Start at 21:00; Stop 05/22/17 at 21:01 Sodium Chloride (NS 250 ml Inj) 250 ml @ 0 mls/hr ONCE ONCE IV Last administered on 05/18/17 17:00; Start 05/18/17 at 17:00; Stop 05/18/17 at 17:01; Status DC Warfarin Sodium (Coumadin) 1 mg DAILY@16 PO Last administered on 05/19/17 14:16 ; Start 05/19/17 at 16:00 Patient Medication Teaching (Coumadin Booklet) 1 ONCE ONCE OTHER Last administered on 05/19/17 16:00; Start 05/19/17 at 16:00; Stop 05/19/17 at 16:01; Status DC Warfarin Sodium (Coumadin) 1 mg NOW ONCE PO Last administered on 05/19/17 19: 40; Start 05/19/17 at 19:45; Stop 05/19/17 at 19:46; Status DC A/P Assessment and Plan A/P Acute Hypoxic Respiratory Failure-resolved --stable on RA Acute Submassive Pulmonary Embolism Right Heart Dysfunction Global severe left ventricular systolic dysfunction Cardiogenic Shock-resolved -- 2d echo 05/02: EF 30-35%, RV dysfunction with dilation --Repeat ECHO limited study scheduled on 05/09-RV function appears to have normalized, question of interatrial shunt for which cardiology consulted-d/w Dr. Taveras, recommended that once off anticoagulation, would need to be on ASA and require f/u echo periodically for evaluation. Acute Kidney Injury Hypokalemia-improved -- likely secondary to cardiogenic shock -HD initiated. - Nephrology following, Dr. 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 -Expanded bowel regimen MiraLAX, lactulose. Large Cell B-cell lymphoma Pulmonary Embolism anemia of chronic disease C. difficile colitis -- hematology/oncology following Dr. Connelly-chemo with CHOP regimen initiated. -- continue heparin drip. started on low dose coumadin- per hematology. --continue Flagyl and Vanco- plan for 14 days- evaluated by ID . continue PT. Prophylaxis: DVT: SCDs, heparin drip/coumadin Catalina Eller MD May 20, 2017 08:47
[2017-05-20] MEDS: NIFEdipine 90 MG SUSTAINED RELEASE TAB PO SCH (09:00)
[2017-05-20] MEDS: CALCIUM ACETATE 667 MG CAP PO SCH ×3 (09:00→17:37)
[2017-05-20] MEDS: VANCOMYCIN 500 MG VIAL (FOR ORAL USE ONLY) PO SCH ×4 (09:00→22:53)
[2017-05-20] MEDS ORDERED: SODIUM CHLOR 0.9% 250 ML INJ 250 ML IV ONE (10:00)
[2017-05-20] MEDS: GENTAMICIN SULFATE (DIALYSIS USE ONLY) 20 MG/2 ML VIAL OTHER PRN (11:36)
[2017-05-20] MEDS: HEPARIN SODIUM - IV 10,000 UNITS/10 ML VIAL OTHER PRN (11:36)
[2017-05-20] MEDS: HEPARIN-D5W 25,000 U/250 ML 250 ML IV SCH (13:02)
[2017-05-20] MEDS: DRONABINOL 5 MG CAP PO SCH ×2 (13:04→17:37)
[2017-05-20] MEDS: ALLOPURINOL 100 MG TAB PO SCH (13:04)
[2017-05-20] MEDS: PANTOPRAZOLE SODIUM 40 MG VIAL IV PUSH SCH (13:05)
--- NOTE | 2017-05-20 14:16 | PD.ONC.PN ---
Subjective Subjective Remarks Afebrile overnight. Patient in good spirits today. His two cousins are visiting. He reports he is waiting for his lunch and he plans to eat it. Objective Data Date Time Temp Pulse Resp B/P Pulse Ox O2 Delivery O2 Flow Rate FiO2 05/20/17 12:53 93 21 05/20/17 08:00 97.4 75 16 99/60 98 05/20/17 04:11 71 05/20/17 04:00 96.6 88 18 120/71 95 05/20/17 00:08 78 05/20/17 00:00 96.3 77 18 109/66 95 05/19/17 20:01 72 05/19/17 20:00 96.4 81 18 115/71 96 05/19/17 17:39 96 21 05/19/17 16:00 97.5 82 18 127/67 96 05/20/17 05/20/17 05/20/17 06:59 14:59 22:59 Intake Total 1226 ml Output Total 100 ml 2500 ml Balance -100 ml -1274 ml Result Diagram: 05/20/17 0500 05/19/17 0724 Laboratory Results Laboratory Tests Test 05/20/17 05:00 White Blood Count 5.8 TH/MM3 Red Blood Count 2.47 MIL/MM3 Hemoglobin 7.4 GM/DL Hematocrit 21.0 % Mean Corpuscular Volume 85.1 FL Mean Corpuscular Hemoglobin 29.9 PG Mean Corpuscular Hemoglobin 35.1 % Concent Red Cell Distribution Width 18.5 % Platelet Count 277 TH/MM3 Mean Platelet Volume 7.2 FL Neutrophils (%) (Auto) 96.1 % Lymphocytes (%) (Auto) 2.1 % Monocytes (%) (Auto) 1.8 % Eosinophils (%) (Auto) 0.0 % Basophils (%) (Auto) 0.0 % Neutrophils # (Auto) 5.5 TH/MM3 Lymphocytes # (Auto) 0.1 TH/MM3 Monocytes # (Auto) 0.1 TH/MM3 Eosinophils # (Auto) 0.0 TH/MM3 Basophils # (Auto) 0.0 TH/MM3 CBC Comment DIFF FINAL Differential Comment Prothrombin Time 13.6 SEC Prothromb Time International 1.2 RATIO Ratio Activated Partial 68.4 SEC Thromboplast Time Administered Medications Medications (Trade) Dose Ordered Sig/Shyla Route PRN Reason Start Time Stop Time Status Last Admin Dose Admin Sodium Chloride (NS Flush) 2 ml UNSCH PRN IV FLUSH FLUSH AFTER USING IV ACCESS 04/18/17 17:30 04/21/17 22:27 Hydralazine HCl (Apresoline Inj) 10 mg Q6HR PRN IV PUSH SBP>160, DBP>90 04/21/17 17:00 04/27/17 10:15 Nifedipine (Procardia Xl) 90 mg DAILY PO 04/28/17 09:00 05/19/17 09:00 Clonidine (Catapres) 0.1 mg Q6H PRN PO SBP>160, DBP>90 04/27/17 15:00 04/29/17 08:07 Ondansetron HCl (Zofran Inj) 4 mg Q6HR PRN IV PUSH NAUSEA OR VOMITING 04/30/17 11:30 05/07/17 10:06 Promethazine HCl (Phenergan Inj) 25 mg Q6H PRN IM NAUSEA OR VOMITING 04/30/17 11:30 05/01/17 13:27 Acetaminophen/ Hydrocodone Bitart ([place] 5-325 Mg) 1 tab Q6H PRN PO PAIN SCALE 1 TO 10 04/30/17 11:30 05/12/17 02:48 Chlorhexidine Gluconate 15 ml 15 ml BID@08,20 MT 05/02/17 20:00 05/15/17 20:00 Fentanyl Citrate 250 ml @ 0 mls/hr TITRATE IV 05/02/17 10:00 05/10/17 05:36 Propofol (Diprivan 1000 Mg/100ml Inj) 100 ml @ 0 mls/hr TITRATE IV 05/02/17 10:00 05/10/17 06:54 Miscellaneous Information Patient in critical care unit? Ass... [id number] .XX 05/02/17 17:15 05/02/17 17:30 Heparin Sodium/ Dextrose (Heparin-D5W Inj) 250 ml @ 0 mls/hr TITRATE IV 05/03/17 02:00 05/20/17 13:02 Calcium Acetate (Phoslo) 2,668 mg TID PO 05/03/17 09:00 05/20/17 13:04 Allopurinol (Zyloprim) 200 mg DAILY PO 05/06/17 09:00 05/20/17 13:04 Pantoprazole Sodium (Protonix Inj) 40 mg DAILY IV PUSH 05/07/17 12:00 05/20/17 13:05 Artificial Tears 1 applic 1 applic Q8H EACH EYE 05/07/17 18:00 05/19/17 10:00 Sodium Chloride (NS 1000 ml Inj) 1,000 ml @ 0 mls/hr TITRATE PRN IV WITH DIALYSIS 05/07/17 18:00 05/11/17 18:29 Heparin Sodium (Porcine) (Heparin Inj) Dwell Heparin to f... UNSCH PRN OTHER WITH DIALYSIS 05/07/17 18:00 05/20/17 11:36 Gentamicin Sulfate (Gentamicin (Dialysis) Inj) 10 mg UNSCH PRN OTHER WITH DIALYSIS 05/07/17 18:00 05/20/17 11:36 Metronidazole (Flagyl) 500 mg Q8HR PO 05/11/17 14:00 05/25/17 12:00 05/20/17 13:04 Vancomycin HCl (VANCOMYCIN for oral use only) 500 mg QID PO 05/13/17 13:00 05/25/17 23:00 05/20/17 13:04 Dronabinol (Marinol) 5 mg BID@11,16 PO 05/14/17 16:00 05/20/17 13:04 Prednisone (Deltasone) 91 mg HS PO 05/18/17 21:00 05/22/17 21:01 05/19/17 22:13 Warfarin Sodium (Coumadin) 1 mg DAILY@16 PO 05/19/17 16:00 05/19/17 14:16 Objective Remarks GENERAL: chronically ill male upright in bed, in good spirits. SKIN: Warm and dry. HEAD: Normocephalic. EYES: No injection or drainage. NECK: Supple, trachea midline. CARDIOVASCULAR: Regular rate and rhythm RESPIRATORY: Breath sounds equal bilaterally. No accessory muscle use. GASTROINTESTINAL: Abdomen soft, non-tender, nondistended. EXTREMITIES: No cyanosis, or edema. NEUROLOGICAL: awake and alert, normal speech. moving all extremities. Assessment/Plan Problem List: (1) Non-Hodgkin lymphoma Status: Acute Plan: --Has aggressive triple hit lymphoma. --Received Rituxan x1. --Neck adenopathy relatively stable. --05/18-->CHOP chemotherapy (2) Pulmonary emboli Status: Acute Plan: --on heparin gtt-->coumadin --CTA showed large PE --s/p tpa therapy on 05.02. now on heparin gtt. (3) ALDO (acute kidney injury) Status: Acute Plan: Renal function has not recovered. Remains on HD. Minimal urine output. (4) Normocytic anemia Status: Acute Plan: --multifactorial due to chronic disease, renal failure --monitor and transfuse as needed (5) C. difficile colitis Status: Acute Plan: --on PO Vanco Assessment 47y/o male admitted with pancreatitis, found to have NHL. Plan The exam, history, and the medical decision-making described in the above note were completed with the assistance of the mid-level provider. I reviewed and agree with the findings presented. I attest that I had a [id number] encounter with the patient on the same day, and personally performed and documented my assessment and findings in the medical record.1. continue heparin bridge to coumadin 2. encourage patient to eat 3. monitor CBC, uric acid, LDH Attending Statement The exam, history, and the medical decision-making described in the above note were completed with the assistance of the mid-level provider. I reviewed and agree with the findings presented. I attest that I had a [id number] encounter with the patient on the same day, and personally performed and documented my assessment and findings in the medical record. Feeling stronger. Left axillary mass softer, Right neck mass also smaller. Tolerated CHOP well. No evidence of TLS. Creatinie trended down the las 2 days, hopefully his renal function will recover. Will bridge to coumadin once he is able to po better. Problem Qualifiers (1) Non-Hodgkin lymphoma: Brenda Platt May 20, 2017 14:16 Ruslan Connelly MD May 20, 2017 16:18
[2017-05-20 15:19] LABS: ALT (GPT) 8 U/L (12-78); ANION GAP 12 MEQ/L (5-15); AST (GOT) 11 U/L (15-37); BICARBONATE 27.9 MEQ/L (21.0-32.0); BLOOD UREA NITROGEN 23 MG/DL (7-18); CHLORIDE 97 MEQ/L (98-107); GLOMERULAR FILTRATION RATE 21 ML/MIN (>89); LDH SERUM 363 U/L (87-241); POTASSIUM 3.5 MEQ/L (3.5-5.1); SODIUM (NA) 137 MEQ/L (136-145); URIC ACID 3.6 MG/DL (2.6-7.2)
[2017-05-20 15:23] LABS: ALKALINE PHOSPHATASE 87 U/L (45-117); TOTAL BILIRUBIN ADULT 0.6 MG/DL (0.2-1.0)
--- NOTE | 2017-05-20 17:20 | HHI.NPPN ---
Subjective History of Present Illness 47-year-old male with no known past medical history who came to the hospital with complaint of nausea, vomiting and abdominal pain on April 18. I was called to see the patient because of elevated BUN and creatinine. The patient had a creatinine of 1.3 on presentation which improved to 0.7 and 0.8, then started increasing for last few days. Additional Remarks Patient is alert, no SOB, no complain. Objective Data Data 05/19/17 05/20/17 18:59 06:59 Intake Total 960 ml Output Total 300 ml 100 ml Balance 660 ml -100 ml Intake Oral 960 ml Output Urine Total 300 ml 100 ml # Bowel Movements 1 Vital Signs Date Time Temp Pulse Resp B/P Pulse Ox O2 Delivery O2 Flow Rate FiO2 05/20/17 16:00 97.1 81 18 97/63 97 05/20/17 12:53 93 21 05/20/17 12:00 97.0 77 18 112/75 96 05/20/17 08:00 97.4 75 16 99/60 98 05/20/17 04:11 71 05/20/17 04:00 96.6 88 18 120/71 95 05/20/17 00:08 78 05/20/17 00:00 96.3 77 18 109/66 95 05/19/17 20:01 72 05/19/17 20:00 96.4 81 18 115/71 96 05/19/17 17:39 96 21 -: 05/20/17 0500 05/20/17 1435 Physical Exam General Appearance: Malnourished Eyes Eye Exam: Pupils Equal Throat Throat Exam: Oral Mucosa [place] & Moist Pulmonary Resp Exam: Crackles, Rhonchi, Decreased Bases, Diminished Breath Sounds, Poor Inspiratory Effort Cardiology CV Exam: Regular, Normal Sinus Rhythm Gastrointestinal/Abdomen GI Exam: Soft, Non-Tender, Bowel Sounds Present, Distended Extremeties Extremities Exam: Trace Edema Neurologic Neuro Exam: Awake Assessment/Plan Assessment Summary: ALDO/Acute Renal Failure Problem List: (1) Non-Hodgkin lymphoma Plan: Hematology following, need for chemotherapy in the future. (2) Adenopathy (3) Pleural effusion (4) Shortness of breath (5) Pulmonary emboli Plan: on anticoagulation. (6) Acute pancreatitis (7) ALDO (acute kidney injury) Plan: He has become dialysis dependent. Plan Still no signs of renal recovery. Monitor renal function and urine output. Avoid nephrotoxins. Multiple medical problems, alcohol induced pancreatitis. HD done in AM and 2.5 liters removed. Follow the urine out put and BMP. HD as needed. Problem Qualifiers (1) Non-Hodgkin lymphoma: (2) Acute pancreatitis: Qualified Code: K85.20 - Alcohol-induced acute pancreatitis, unspecified complication status Leonid Haley MD May 20, 2017 17:20
[2017-05-20] MEDS: WARFARIN SOD 1 MG TAB PO SCH (17:37)
--- NOTE | 2017-05-20 18:40 | HHI.PR ---
Subjective Remarks Stable Off O2. No SOB at rest.. Less arm swelling. Had Dialysis done NO chest pain. No fever. on coumadin 1 mg Objective Vital Signs Date Time Temp Pulse Resp B/P Pulse Ox O2 Delivery O2 Flow Rate FiO2 05/20/17 17:52 97 21 05/20/17 16:00 97.1 81 18 97/63 97 05/20/17 12:53 93 21 05/20/17 12:00 97.0 77 18 112/75 96 05/20/17 08:00 97.4 75 16 99/60 98 05/20/17 04:11 71 05/20/17 04:00 96.6 88 18 120/71 95 05/20/17 00:08 78 05/20/17 00:00 96.3 77 18 109/66 95 05/19/17 20:01 72 05/19/17 20:00 96.4 81 18 115/71 96 I/O 05/19/17 05/19/17 05/19/17 05/20/17 05/20/17 05/20/17 07:00 15:00 23:00 07:00 15:00 23:00 Intake Total 960 ml 2186 ml Output Total 300 ml 100 ml 2600 ml Balance 660 ml -100 ml -414 ml Intake Oral 960 ml 960 ml IV Total 1226 ml Output Urine Total 300 ml 100 ml 100 ml Hemodialysis 2500 ml # Bowel Movements 1 1 0 Result Diagram: 05/20/17 0500 05/20/17 1435 Objective Remarks GENERAL: This is a mid aged A/A male , well-developed patient alert . HEENT: Throat clear. CARDIOVASCULAR: Regular rate and rhythm without murmurs, gallops, or rubs. RESPIRATORY: diminished breath sounds bilaterally. Crackles both bases GASTROINTESTINAL: Abdomen soft, non-tender,nondistended. + bowel sounds MUSCULOSKELETAL: Extremities show 2 + edema of arms. NEURO: awake and responds well.Moves all. Assessment and Plan Assessment and Plan ASSESSMENT 1. Acute kidney injury. 2. Respiratory failure. 3. Acute Pulmonary embolism. 4. Non-Hodgkin's lymphoma. 5. Anemia. 6. Hyperphosphatemia. Plan : 1. Get CXR in am 2. Labs in am 3. Continue anti biotics 4. Albuterol HFA , 2 puffs qid 5. IS at bedside q3h 6. Cont Coumadin per Dr mackey 7. PT and OT Con Pierre MD May 20, 2017 18:40
[2017-05-20] MEDS: predniSONE 20 MG TAB PO SCH (22:53)
[2017-05-21] VITALS (9 sets, daily range): BP systolic 106–126; BP diastolic 56–75; PULSE 65–81; RESP 12–17; TEMP 96.2–97; O2SAT 93–97
[2017-05-21] MEDS: ARTIFICIAL TEARS OPTH OINT 3.5 APPLIC/3.5 GM TUBO EACH EYE SCH ×3 (02:00→17:28)
[2017-05-21] MEDS: ALBUTEROL SULFATE 90 MCG/ACT HFA 18 GM INHALER INH SCH ×5 (05:24→22:12)
[2017-05-21] MEDS: metroNIDAZOLE 500 MG TAB PO SCH ×3 (05:25→22:10)
--- NOTE | 2017-05-21 07:27 | RADRPT ---
EXAM DATE/TIME: 05/21/2017 06:05 [facility] COMPARISON: CHEST SINGLE AP, May 16, 2017, 5:38. INDICATIONS : Short of breath, evaluate effusions MEDICAL HISTORY : Pancreatitis. SURGICAL HISTORY : infusaport ENCOUNTER: Subsequent ACUITY: 2 weeks PAIN SCORE: 0/10 LOCATION: Bilateral chest FINDINGS: Indwelling right venous catheters appreciated with large bore left-sided catheter. Bilateral basilar opacities persist in part represent effusion and possibly lower lobe posterior basal and occult colla pse on the left or infiltrate. There is a straight line in the medial right base in this upright film would suggest a possible fluid air level. There is no pneumothorax. Mediastinum again noted to be wi dened. CONCLUSION: Bibasilar opacities the majority represent effusion appreciated without posterior left lower lobe ret rocardiac density consolidation atelectasis versus infiltrate there was underlying in the right media l base suggesting air fluid level the possibility of cavitary lesion with air-fluid level cannot be e xcluded. There is persistent mediastinal mass widening. Stanford Mcdonough MD on May 21, 2017 at 7:24 Board Certified Radiologist. This report was verified electronically.
--- NOTE | 2017-05-21 07:52 | HHI.PR ---
Subjective Remarks in no acute distress. no new complaints. no fever. denies pain. Objective Vitals Vital Signs Date Time Temp Pulse Resp B/P Pulse Ox O2 Delivery O2 Flow Rate FiO2 05/21/17 04:00 96.7 81 17 114/62 94 05/21/17 00:00 97.0 65 17 106/56 96 05/20/17 23:02 80 05/20/17 20:00 97.1 81 17 103/58 96 05/20/17 17:52 97 21 05/20/17 16:00 97.1 81 18 97/63 97 05/20/17 12:53 93 21 05/20/17 12:00 97.0 77 18 112/75 96 05/20/17 08:00 97.4 75 16 99/60 98 I/O 05/20/17 05/20/17 05/20/17 05/21/17 05/21/17 05/21/17 06:59 14:59 22:59 06:59 14:59 22:59 Intake Total 2186 ml Output Total 100 ml 2600 ml 100 ml Balance -100 ml -414 ml -100 ml Intake Oral 960 ml IV Total 1226 ml Output Urine Total 100 ml 100 ml 100 ml Hemodialysis 2500 ml # Bowel Movements 0 1 Result Diagram: 05/20/17 0500 05/20/17 1435 Imaging Last Impressions Chest X-Ray 05/21/17 0600 Signed Impressions: Service Date/Time: May 06:05 - CONCLUSION: Bibasilar opacities the majority represent effusion appreciated without posterior left lower lobe retrocardiac density consolidation atelectasis versus infiltrate there was underlying in the right medial base suggesting air fluid level the possibility of cavitary lesion with air-fluid level cannot be excluded. There is persistent mediastinal mass widening. Stanford Mcdonough MD Abdomen X-Ray 05/15/17 0600 Draft Impressions: Service Date/Time: Monday, May 15, 2017 04:29 - CONCLUSION: Findings of mild small bowel ileus. There has been no significant change when compared to the prior exam. Jadon Carroll MD Abdomen/Pelvis CT 05/09/17 0000 Signed Impressions: Service Date/Time: Tuesday, May 09, 2017 21:16 - CONCLUSION: 1. Diffusely distended loops of small bowel down to the cecum suggest ileus. 2. Evidence of mesenteric and retroperitoneal adenopathy. 3. Large bilateral pleural effusions , moderate amount of free fluid in the pelvis and mild ascites in the upper abdomen. 4. Abnormal appearance to the parenchyma of the right kidney with patchy areas of hyperdensity in a mosaic pattern. This of uncertain significance. The patient had iodinated contrast for a CT pulmonary angiogram 7 days ago; this could potentially represent residual parenchymal contrast which would be nonspecific, but raises the possibility of either obstruction or renal infarctions. Bryon Evans MD Renal Ultrasound 05/05/17 Signed Impressions: Service Date/Time: Friday, May 05, 2017 20:06 - CONCLUSION: 1. Kidneys are borderline echogenic which can be seen with medical renal disease. 2. No evidence of hydronephrosis. 3. Abdominal ascites. 4. Multiple dilated bowel loops. 5. Bilateral pleural effusions. Tray Patel MD Head CT 05/03/17 Signed Impressions: Service Date/Time: Wednesday, May 03, 2017 17:22 - CONCLUSION: No acute intracranial disease. No hemorrhage seen. Tray Patel MD CT Angiography 05/02/17 Signed Impressions: Service Date/Time: Tuesday, May 02, 2017 11:10 - CONCLUSION: 1. There is pulmonary embolus in the right pulmonary artery, right upper lobe and lower lobe branches. 2. Resorption of previously seen gas in the left axilla with fluid collection at this site with postprocedural change and possibly postprocedural hemorrhage not significantly changed in size. 3. Interval development of right lung airspace process may represent postobstructive pneumonia and there is mucus within the trachea not present yesterday. 4. Right pleural effusion is smaller and left pleural effusion is larger. 5. No change in bulky adenopathy. Leonor Chavez MD Upper Extremity Ultrasound 04/30/17 Signed Impressions: Service Date/Time: April 12:25 - CONCLUSION: There some superficial thrombosis of a vein in the forearm. The deep venous system is patent. Large fluid collection left axilla. Significant soft tissue edema throughout the upper arm. Rinku Hillman MD Thoracentesis Ultrasound 04/30/17 Signed Impressions: Service Date/Time: April 12:14 - CONCLUSION: Uncomplicated ultrasound guided thoracentesis. Tray Patel MD Port Line Insertion 04/27/17 0000 Signed Impressions: Service Date/Time: Thursday, April 27, 2017 14:56 - CONCLUSION: 1. Bulky bilateral lower cervical lymphadenopathy. 2. Uncomplicated ultrasound and fluoroscopic guided implanted central venous port catheter placement as described in detail above. An 8 [employer] port was placed. Liang Peralta MD Bone Biopsy CT 04/27/17 0000 Signed Impressions: Service Date/Time: Thursday, April 27, 2017 16:22 - CONCLUSION: 1. Uncomplicated CT guided bone marrow aspirate. 2. Uncomplicated CT guided bone marrow biopsy. Tray Patel MD Chest CT 04/25/17 0000 Signed Impressions: Service Date/Time: Wednesday, April 26, 2017 19:00 - CONCLUSION: The right pleural effusion is slightly larger on the left side has not changed. Extensive bulky adenopathy as before and malignancies such as lymphoma is suspected. Leonor Chavez MD Gall Bladder Ultrasound 04/22/17 0000 Signed Impressions: Service Date/Time: Saturday, April 22, 2017 07:35 - CONCLUSION: Small liver with focal abdomen only incompletely evaluated. Large right pleural effusion. effusion. Kirk Briceño MD FACR Abdomen CT 04/20/17 0000 Signed Impressions: Service Date/Time: Thursday, April 20, 2017 19:40 - CONCLUSION: Limited exam because of lack of intravenous contrast. Lymphoma is suspected. Pathological diagnosis could be obtained with ultrasound biopsy of the cervical, axillary or inguinal adenopathy. Kirk Briceño MD FACR Objective Remarks GENERAL: in no acute distress CARDIOVASCULAR: Regular rate and regular rhythm without murmurs, gallops, or rubs. RESPIRATORY: Clear to auscultation. Breath sounds equal bilaterally. No wheezes , rales, or rhonchi. GASTROINTESTINAL: Abdomen soft, non-tender, nondistended. Normal, active bowel sounds MUSCULOSKELETAL: Extremities without clubbing, cyanosis, or edema. NEURO: awake and alert Procedures 04/[address] excision biopsy 04/27- port placement 05/02-TPA 05/06-left IJ Vas-Cath placement endotracheal intubation Medications and IVs Current Medications Ondansetron HCl 4 mg 4 mg ONCE ONCE IVP Last administered on 04/18/17 17:38; Start 04/18/17 at 17:30; Stop 04/18/17 at 17:31; Status DC Sodium Chloride (NS 1000 ml Inj) 1,000 ml @ 1,000 mls/hr Q1H IV Last administered on 04/18/17 17:38; Start 04/18/17 at 17:16; Stop 04/18/17 at 18:15; Status DC Sodium Chloride 2 ml 2 ml UNSCH PRN IV FLUSH FLUSH AFTER USING IV ACCESS Last administered on 04/21/17 22:27; Start 04/18/17 at 17:30 Sodium Chloride 1,000 ml @ 1,000 mls/hr Q1H IV Last administered on 04/18/17 18:40; Start 04/18/17 at 18:37; Stop 04/18/17 at 19:36; Status DC Potassium Chloride (KCl 20 Meq Premix Inj) 100 ml @ 50 mls/hr Q2H IV Last administered on 04/18/17 22:12; Start 04/18/17 at 19:00; Stop 04/18/17 at 22:59; Status DC Ondansetron HCl (Zofran Inj) 4 mg Q6H PRN IVP NAUSEA OR VOMITING Last administered on 04/26/17 06:04; Start 04/18/17 at 19:30; Stop 04/26/17 at 13:02 ; Status DC Morphine Sulfate (Morphine Inj) 2 mg Q3H PRN IV Pain 3-5; if unable to take PO ; Start 04/18/17 at 19:30; Status Cancel Morphine Sulfate (Morphine Inj) 4 mg Q3H PRN IV Pain 6-10;if unable to take PO ; Start 04/18/17 at 19:30; Status Cancel Naloxone HCl (Narcan Inj) 0.4 mg UNSCH PRN IV SEE LABEL COMMENTS; Start at 19:30 Senna/Docusate Sodium (Porsha-Colace) 1 tab BID PO Last administered on 07:52; Start 04/18/17 at 21:00; Stop 05/13/17 at 17:16; Status DC Magnesium Hydroxide (Milk Of Magnesia Liq) 30 ml Q12H PRN PO MILD - MODERATE CONSTIPATION Last administered on 05/09/17 08:01; Start 04/18/17 at 19:30; Stop 05/13/17 at 17:16; Status DC Sennosides (Senokot) 17.2 mg Q12H PRN PO MODERATE - SEVERE CONSTIPATION; Start 04/18/17 at 19:30; Stop 05/13/17 at 17:16; Status DC Bisacodyl (Dulcolax Supp) 10 mg DAILY PRN RECTAL SEVERE CONSITIPATION; Start at 19:30; Stop 05/13/17 at 17:16; Status DC Lactulose 30 ml 30 ml DAILY PRN PO SEVERE CONSITIPATION; Start 04/18/17 at 19:30 ; Stop 05/13/17 at 17:16; Status DC Potassium Chloride/Sodium Chloride 1,000 ml @ 125 mls/hr Q8H IV ; Start at 21:00; Stop 04/18/17 at 21:00; Status DC Potassium Chloride/Sodium Chloride 1,000 ml @ 83 mls/hr Q12H3M IV Last administered on 04/23/17 01:19; Start 04/19/17 at 02:00; Stop 04/23/17 at 09:04 ; Status DC Sodium Chloride (NS 1000 ml Inj) 1,000 ml @ 125 mls/hr Q8H IV Last administered on 04/18/17 20:00; Start 04/18/17 at 20:00; Stop 04/19/17 at 16:01; Status DC Pneumococcal Polyvalent Vaccine 25 mcg 25 mcg ONCE ONCE IM Last administered on 04/19/17 11:20; Start 04/19/17 at 09:00; Stop 04/19/17 at 09:01; Status DC Ceftriaxone Sodium/Sodium Chloride (Rocephin Inj/NS Inj) 100 ml @ 200 mls/hr Q24H IV Last administered on 04/24/17 12:51; Start 04/19/17 at 13:00; Stop at 14:33; Status DC Heparin Sodium (Porcine) (Heparin Inj) 5,000 units Q8HR SQ Last administered on 05/02/17 12:46; Start 04/19/17 at 14:00; Stop 05/19/17 at 10:23; Status DC Azithromycin (Zithromax) 500 mg Q24H PO Last administered on 04/24/17 12:51; Start 04/19/17 at 13:00; Stop 04/24/17 at 14:33; Status DC Clonidine (Catapres) 0.1 mg ONCE ONCE PO Last administered on 04/20/17 22:16 ; Start 04/20/17 at 21:45; Stop 04/20/17 at 21:46; Status DC Nifedipine (Procardia Xl) 30 mg DAILY PO Last administered on 04/25/17 09:42; Start 04/21/17 at 17:00; Stop 04/25/17 at 13:12; Status DC Hydralazine HCl 10 mg 10 mg Q6HR PRN IV PUSH SBP>160, DBP>90 Last administered on 04/27/17 10:15; Start 04/21/17 at 17:00 Cefazolin Sodium/ Sodium Chloride (Ancef Inj/NS Inj) 100 ml @ 200 mls/hr IRON ERECTOR IV ; Start 04/21/17 at 21:30; Stop 04/24/17 at 21:29; Status DC Midazolam HCl (Versed Inj) 2 mg STK-MED ONCE .ROUTE Last administered on 09:02; Start 04/22/17 at 09:02; Stop 04/22/17 at 09:03; Status DC Bupivacaine HCl/ Epinephrine Bitart (Sensorcaine-Epi 0.5% 50 ml Inj) 50 ml STK- MED ONCE INFIL ; Start 04/22/17 at 09:25; Stop 04/22/17 at 09:26; Status Cancel Albuterol Sulfate (*ALBUTEROL NEB PERIprocedure ONLY) 2.5 mg STK-MED ONCE NEB Last administered on 04/22/17 10:06; Start 04/22/17 at 10:06; Stop 04/22/17 at 10:07; Status DC Fentanyl Citrate (fentaNYL INJ) 200 mcg STK-MED ONCE .ROUTE ; Start 04/22/17 at 10:10; Stop 04/22/17 at 10:11; Status DC Bupivacaine HCl (Marcaine Pf 0.5% Inj) 30 ml STK-MED ONCE INFIL Last administered on 04/22/17 09:25; Start 04/22/17 at 09:25; Stop 04/22/17 at 10:49 ; Status DC Miscellaneous Information ALL NURSING DEPARTME... UNSCH PRN .XX SEE LABEL COMMENTS; Start 04/22/17 at 10:01; Stop 04/23/17 at 10:00; Status DC Dextrose/Sodium Chloride 1,000 ml @ 60 mls/hr [id number] IV Last administered on 04/24/17 06:40; Start 04/23/17 at 12:45; Stop 04/24/17 at 14:36; Status DC Potassium Chloride/Dextrose/ Sodium Chloride (KCl Inj/D5W-NS 1000 ml Inj) 1,015 ml @ 70 mls/hr [id number] IV Last administered on 04/25/17 05:34; Start at 16:00; Stop 04/25/17 at 13:12; Status DC Promethazine HCl (Phenergan Inj) 25 mg ONCE ONCE IM Last administered on 11:55; Start 04/25/17 at 08:00; Stop 04/25/17 at 08:01; Status DC Nifedipine 60 mg 60 mg DAILY PO Last administered on 04/27/17 10:02; Start at 09:00; Stop 04/27/17 at 14:48; Status DC Potassium Chloride/Dextrose/ Sodium Chloride (KCl Inj/D5W-NS 1000 ml Inj) 1,015 ml @ 60 mls/hr [id number] IV Last administered on 04/27/17 18:18; Start at 15:00; Stop 04/28/17 at 11:49; Status DC Promethazine HCl (Phenergan Inj) 12.5 mg Q8H PRN IM PERSISTENT NAUSEA Last administered on 04/30/17 04:34; Start 04/26/17 at 13:15; Stop 04/30/17 at 11:28 ; Status DC Allopurinol 300 mg 300 mg DAILY PO Last administered on 05/05/17 08:12; Start 04/27/17 at 09:00; Stop 05/05/17 at 12:10; Status DC Vancomycin HCl 1000 mg/Sodium Chloride 250 ml @ 250 mls/hr IRON ERECTOR IV Last administered on 04/27/17 13:49; Start 04/27/17 at 10:00; Stop 04/30/17 at 09:59 ; Status DC Cefazolin Sodium/ Dextrose (Ancef 2 Gm Premix) 50 ml @ 100 mls/hr IRON ERECTOR IV Last administered on 04/27/17 15:42; Start 04/27/17 at 10:00; Stop 04/30/17 at 09:59; Status DC Nifedipine (Procardia Xl) 90 mg DAILY PO Last administered on 05/19/17 09:00; Start 04/28/17 at 09:00 Clonidine (Catapres) 0.1 mg Q12HR PO ; Start 04/27/17 at 21:00; Status UNV Clonidine (Catapres) 0.1 mg Q6H PRN PO SBP>160, DBP>90 Last administered on 08:07; Start 04/27/17 at 15:00 Heparin Sodium (Porcine) (*HEPARIN CENTRAL FLUSH PERIprocedural ONLY) 500 units STK-MED ONCE IV FLUSH Last administered on 04/27/17 14:51; Start 04/27/17 at 14:51; Stop 04/27/17 at 14:52; Status DC Lidocaine/ Epinephrine (Xylocaine-Epi 1%-1:100,000 Inj) 20 ml STK-MED ONCE .ROUTE Last administered on 04/27/17 14:51; Start 04/27/17 at 14:51; Stop at 14:52; Status DC Midazolam HCl (Versed Inj) 5 mg STK-MED ONCE .ROUTE Last administered on 14:52; Start 04/27/17 at 14:52; Stop 04/27/17 at 14:53; Status DC Fentanyl Citrate 250 mcg 250 mcg STK-MED ONCE .ROUTE Last administered on 14:53; Start 04/27/17 at 14:53; Stop 04/27/17 at 14:54; Status DC Sodium Chloride (NS 1000 ml Inj) 1,000 ml @ 100 mls/hr Q10H IV Last administered on 04/29/17 17:55; Start 04/29/17 at 15:00; Stop 04/30/17 at 00:59 ; Status DC Acetaminophen (Tylenol) 650 mg ONCE ONCE PO Last administered on 04/30/17 16: 44; Start 04/30/17 at 13:00; Stop 04/30/17 at 13:01; Status DC Diphenhydramine HCl 50 mg 50 mg ONCE ONCE PO Last administered on 04/30/17 16 :43; Start 04/30/17 at 13:00; Stop 04/30/17 at 13:01; Status DC Rituximab/Sodium Chloride (Rituxan Inj/NS 500 ml Inj) 571.625 ml @ 0 mls/hr ONCE ONCE IV Last administered on 05/01/17 13:15; Start 04/30/17 at 14:00; Stop 04/30/17 at 14:01; Status DC Prednisone 115 mg 115 mg Q12H PO ; Start 04/30/17 at 13:00; Stop 05/01/17 at 11: 21; Status DC Dexamethasone Sodium Phosphate 20 mg/Granisetron HCl 1 mg/Sodium Chloride 56 ml @ 224 mls/hr Q24H IV ; Start 04/30/17 at 15:00; Stop 05/01/17 at 11:26; Status DC Potassium Chloride 100 ml @ 50 mls/hr BOLUS ONCE IV Last administered on 04/30 10:20; Start 04/30/17 at 10:00; Stop 04/30/17 at 11:59; Status DC Etoposide 95.5 mg/ Doxorubicin HCl 19.1 mg/ Vincristine Sulfate 0.764 mg/ Sodium Chloride 515.089 ml @ 21.462 mls/hr Q24H IV ; Start 04/30/17 at 15:00; Stop 05/18/17 at 13:46; Status DC Cyclophosphamide/ Sodium Chloride (Cytoxan Inj/NS 500 ml Inj) 500 ml @ 500 mls/ hr ONCE ONCE IV ; Start 05/04/17 at 14:00; Stop 05/04/17 at 14:59; Status DC Ondansetron HCl (Zofran Inj) 4 mg Q6HR PRN IV PUSH NAUSEA OR VOMITING Last administered on 05/07/17 10:06; Start 04/30/17 at 11:30 Promethazine HCl (Phenergan Inj) 25 mg Q6H PRN IM NAUSEA OR VOMITING Last administered on 05/01/17 13:27; Start 04/30/17 at 11:30 Acetaminophen/ Hydrocodone Bitart ([place] 5-325 Mg) 1 tab Q6H PRN PO PAIN SCALE 1 TO 10 Last administered on 05/12/17 02:48; Start 04/30/17 at 11:30 Albuterol/ Ipratropium (Duoneb Neb) 1 ampule ONCE ONCE NEB Last administered on 04/30/17 20:16; Start 04/30/17 at 19:45; Stop 04/30/17 at 20:11; Status DC Albuterol/ Ipratropium (Duoneb Neb) 1 ampule Q2HR NEB PRN NEB sob, wheeze; Start 04/30/17 at 20:45; Stop 05/02/17 at 10:14; Status DC Morphine Sulfate (Morphine Inj) 2 mg ONCE ONCE IV PUSH Last administered on 23:36; Start 04/30/17 at 23:30; Stop 04/30/17 at 23:31; Status DC Furosemide (Lasix Inj) 10 mg ONCE ONCE IV PUSH Last administered on 05/01/17 01:01; Start 05/01/17 at 00:00; Stop 05/01/17 at 00:01; Status DC Furosemide (Lasix Inj) 20 mg ONCE ONCE IV PUSH Last administered on 05/01/17 09:09; Start 05/01/17 at 07:45; Stop 05/01/17 at 07:52; Status DC Acetaminophen (Tylenol) 650 mg NOW ONCE PO Last administered on 05/01/17 10: 51; Start 05/01/17 at 10:45; Stop 05/01/17 at 10:46; Status DC Diphenhydramine HCl 50 mg 50 mg NOW ONCE PO Last administered on 05/01/17 10: 51; Start 05/01/17 at 10:45; Stop 05/01/17 at 10:46; Status DC Rituximab/Sodium Chloride (Rituxan Inj/NS 500 ml Inj) 571.625 ml @ 0 mls/hr ONCE ONCE IV ; Start 05/01/17 at 12:00; Stop 05/01/17 at 12:01; Status DC Acetaminophen (Tylenol) 650 mg ONCE ONCE PO ; Start 05/01/17 at 11:30; Stop at 11:31; Status DC Diphenhydramine HCl (Benadryl) 50 mg ONCE ONCE PO ; Start 05/01/17 at 11:30; Stop 05/01/17 at 11:31; Status DC Prednisone 115 mg 115 mg Q12HR PO Last administered on 05/02/17 20:08; Start 05/01/17 at 11:00; Stop 05/05/17 at 21:01; Status DC Dexamethasone Sodium Phosphate/ Granisetron HCl/ Sodium Chloride (Decadron Inj/ Kytril Inj/NS Inj) 56 ml @ 224 mls/hr Q24H IV ; Start 05/01/17 at 11:30; Stop 05/06/17 at 11:44; Status DC Metoclopramide HCl (Reglan Inj) 10 mg Q8HR IV PUSH Last administered on 04:59; Start 05/01/17 at 15:30; Stop 05/09/17 at 19:03; Status DC Pantoprazole Sodium (Protonix) 40 mg DAILY PO Last administered on 05/06/17 08 :17; Start 05/01/17 at 16:00; Stop 05/07/17 at 11:49; Status DC Furosemide (Lasix Inj) 20 mg ONCE ONCE IV PUSH Last administered on 05/01/17 16:14; Start 05/01/17 at 15:30; Stop 05/01/17 at 15:31; Status DC Albuterol/ Ipratropium (Duoneb Neb) 1 ampule BID NEB INH Last administered on 05/02/17 07:47; Start 05/01/17 at 20:00; Stop 05/02/17 at 10:18; Status DC Furosemide (Lasix Inj) 20 mg STAT ONCE IV PUSH Last administered on 05/02/17 08:40; Start 05/02/17 at 08:30; Stop 05/02/17 at 08:37; Status DC Etomidate (Amidate Inj) 20 mg STK-MED ONCE .ROUTE Last administered on 12:48; Start 05/02/17 at 09:23; Stop 05/02/17 at 09:24; Status DC Dextrose (D50w (Vial) Inj) 25 ml UNSCH PRN IV PUSH HYPOGLYCEMIA-SEE COMMENTS; Start 05/02/17 at 10:00; Stop 05/16/17 at 08:09; Status DC Insulin Human Regular (NovoLIN R SUPPLEMENTAL SCALE) 1 Q6HR SQ Last administered on 05/04/17 18:00; Start 05/02/17 at 12:00; Stop 05/16/17 at 08:09 ; Status DC Chlorhexidine Gluconate (Peridex 0.12% Liq) 15 ml BID@08,20 MT Last administered on 05/20/17t 20:00; Start 05/02/17 at 20:00 Magnesium Oxide 800 mg 800 mg UNSCH PRN PO For Magnesium 1.2 - 1.6 mg/dL; Start 05/02/17 at 10:00; Stop 05/03/17 at 13:51; Status DC Magnesium Sulfate 4 gm/Sodium Chloride 100 ml @ 50 mls/hr UNSCH PRN IV For Magnesium 0.9 - 1.1 mg/dL; Start 05/02/17 at 10:00; Stop 05/03/17 at 13:51; Status DC Magnesium Sulfate 2 gm/Sodium Chloride 100 ml @ 50 mls/hr UNSCH PRN IV For Magnesium 1.2 - 1.6 mg/dL; Start 05/02/17 at 10:00; Stop 05/03/17 at 13:51; Status DC Potassium Chloride 100 ml @ 50 mls/hr Q2H PRN IV For Potassium 2.8 - 3.2 mEq/L ; Start 05/02/17 at 10:00; Stop 05/03/17 at 13:51; Status DC Potassium Chloride 100 ml @ 50 mls/hr Q2H PRN IV For Potassium 3.3 - 3.5 mEq/L ; Start 05/02/17 at 10:00; Stop 05/03/17 at 13:51; Status DC Potassium Chloride 100 ml @ 50 mls/hr Q2H PRN IV For Potassium 2.8 - 3.2 mEq/L ; Start 05/02/17 at 10:00; Stop 05/03/17 at 13:51; Status DC Potassium Chloride (KCl 40 Meq Premix Inj) 100 ml @ 25 mls/hr UNSCH PRN IV For Potassium 3.3 - 3.5 mEq/L; Start 05/02/17 at 10:00; Stop 05/03/17 at 13:51; Status DC Potassium Phosphate (K-Phos) 2,000 mg Q4H PRN PO For Phosphorus < 2.5 mg/dL; Start 05/02/17 at 10:00; Stop 05/03/17 at 13:51; Status DC Potassium Phosphate 2000 mg 2,000 mg UNSCH PRN PO/TUBE SEE LABEL COMMENTS; Start 05/02/17 at 10:00; Stop 05/03/17 at 13:51; Status DC Potassium Phosphate 30 mmol/ Sodium Chloride 260 ml @ 42 mls/hr UNSCH PRN IV SEE LABEL COMMENTS; Start 05/02/17 at 10:00; Stop 05/03/17 at 13:52; Status DC Sodium Phosphate/ Sodium Chloride (Sodium Phosphate Inj/NS 250 ml Inj) 250 ml @ 42 mls/hr UNSCH PRN IV For Phosphorus < 2.5 mg/dL; Start 05/02/17 at 10:00; Stop 05/03/17 at 13:52; Status DC Albuterol/ Ipratropium (Duoneb Neb) 1 ampule Q6HR NEB INH Last administered on 05/06/17 03:23; Start 05/02/17 at 10:00; Stop 05/06/17 at 10:00; Status DC Albuterol/ Ipratropium 1 ampule 1 ampule Q2HR NEB PRN INH WHEEZING Last administered on 05/08/17 08:08; Start 05/02/17 at 10:00 Fentanyl Citrate 250 ml @ 0 mls/hr TITRATE IV Last administered on 05/10/17 05 :36; Start 05/02/17 at 10:00 Propofol (Diprivan 1000 Mg/100ml Inj) 100 ml @ 0 mls/hr TITRATE IV Last administered on 05/10/17 06:54; Start 05/02/17 at 10:00 Iohexol 75 ml 75 ml STK-MED ONCE IV Last administered on 05/02/17 11:31; Start 05/02/17 at 11:31; Stop 05/02/17 at 11:32; Status DC Cefepime HCl 2000 mg/Sodium Chloride 100 ml @ 200 mls/hr Q12H IV Last administered on 05/05/17 02:43; Start 05/02/17 at 15:00; Stop 05/05/17 at 11:53 ; Status DC Vancomycin HCl/ Sodium Chloride (Vancomycin Inj/ NS 250 ml Inj) 250 ml @ 250 mls/hr ONCE ONCE IV Last administered on 05/02/17 16:14; Start 05/02/17 at 15 :00; Stop 05/02/17 at 15:59; Status DC Heparin Sodium (Porcine) (Heparin Inj) 5,000 units ONCE ONCE IV Last administered on 05/02/17 15:35; Start 05/02/17 at 16:00; Stop 05/02/17 at 16:01 ; Status DC Miscellaneous Information Patient in critical care unit? Ass... [id number] .XX Last administered on 05/02/17 17:30; Start 05/02/17 at 17:15 Chlorhexidine Gluconate (Chlorhexidine 2% Cloth) 3 pack DAILY@04 TOPICAL Last administered on 05/07/17 03:45; Start 05/03/17 at 04:00; Stop 05/07/17 at 04:01 ; Status DC Chlorhexidine Gluconate 3 pack 3 pack UNSCH PRN TOPICAL HYGIENIC CARE; Start at 17:15; Stop 05/07/17 at 17:08; Status DC Alteplase, Recombinant/ Syringe / Bag (Activase Drip/ Syringe/Bag) 49.9999 ml @ 50 mls/hr ONCE ONCE IV Last administered on 05/02/17 19:58; Start 05/02/17 at 19:15; Stop 05/02/17 at 20:14; Status DC Sodium Chloride (NS Inj) 30 ml ONCE ONCE IVF Last administered on 05/02/17 19 :15; Start 05/02/17 at 19:15; Stop 05/02/17 at 19:28; Status DC Miscellaneous Medication Thrombolysis plan for submass... ONCE ONCE OTHER Last administered on 05/02/17 19:15; Start 05/02/17 at 19:15; Stop 05/02/17 at 19:28; Status DC Heparin Sodium/ Dextrose 250 ml @ 0 mls/hr TITRATE IV Last administered on 13:02; Start 05/03/17 at 02:00 Epinephrine HCl/ Dextrose (Adrenalin (1:1000) Inj/D5W Inj) 250 ml @ 30 mls/hr TITRATE IV Last administered on 05/04/17 09:43; Start 05/03/17 at 10:15; Stop 05/07/17 at 16:44; Status DC Calcium Acetate 2668 mg 2,668 mg TID PO Last administered on 8/9/17at 17:37; Start 05/03/17 at 09:00 Epoprostenol Sodium/Sodium Chloride (Flolan (30,000 Ng/ml) Neb/NS Inj) 100 ml @ 8 mls/hr Q8H NEB Last administered on 05/04/17 00:17; Start 05/03/17 at 09:00 ; Stop 05/04/17 at 14:14; Status DC Lidocaine HCl 50 ml 50 ml STK-MED ONCE .ROUTE ; Start 05/03/17 at 12:21; Stop at 12:22; Status DC Epoprostenol Sodium 40 ml/ Sodium Chloride 100 ml @ 8 mls/hr Q8H NEB Last administered on 05/06/17 06:04; Start 05/04/17 at 15:00; Stop 05/06/17 at 12:43 ; Status DC Calcium Gluconate 2 gm/Dextrose 120 ml @ 120 mls/hr ONCE ONCE IV Last administered on 05/04/17 20:00; Start 05/04/17 at 20:00; Stop 05/04/17 at 20:59 ; Status DC Cefepime HCl/ Sodium Chloride (Maxipime Inj/NS Inj) 100 ml @ 200 mls/hr Q24H IV Last administered on 05/08/17 01:36; Start 05/06/17 at 03:00; Stop at 23:00; Status DC Allopurinol (Zyloprim) 200 mg DAILY PO Last administered on 05/20/17 13:04; Start 05/06/17 at 09:00 Artificial Tears (Tears Naturale Opth Soln) 1 drop Q8H EACH EYE Last administered on 05/07/17 10:06; Start 05/05/17 at 18:00; Stop 05/07/17 at 12:11 ; Status DC Fentanyl Citrate (fentaNYL INJ) 100 mcg STK-MED ONCE IV ; Start 04/22/17 at 12: 00; Stop 05/06/17 at 12:46; Status DC Propofol (Diprivan 200 Mg/20 ml Inj) 200 mg STK-MED ONCE IV ; Start 04/22/17 at 12:00; Stop 05/06/17 at 12:46; Status DC Phenylephrine HCl (Neosynephrine/ NS 1000 Mcg/10ml Syr) 1,000 mcg STK-MED ONCE IV ; Start 04/22/17 at 12:00; Stop 05/06/17 at 12:47; Status DC Ondansetron HCl (Zofran Inj) 4 mg STK-MED ONCE IV PUSH ; Start 04/22/17 at 12:00 ; Stop 05/06/17 at 12:47; Status DC Pantoprazole Sodium (Protonix Inj) 40 mg DAILY IV PUSH Last administered on 05/20 13:05; Start 05/07/17 at 12:00 Artificial Tears 1 applic 1 applic Q8H EACH EYE Last administered on 05/19/17 10:00; Start 05/07/17 at 18:00 Sodium Chloride (NS 1000 ml Inj) 1,000 ml @ 0 mls/hr TITRATE PRN IV WITH DIALYSIS Last administered on 05/11/17 18:29; Start 05/07/17 at 18:00 Heparin Sodium (Porcine) 8000 units 8,000 units UNSCH PRN IV FLUSH WITH DIALYSIS; Start 05/07/17 at 18:00 Sodium Chloride 1,000 ml @ 200 mls/hr Q5H PRN IV WITH DIALYSIS; Start 05/07/17 at 18:00 Sodium Chloride (NS 250 ml Inj) 200 ml @ 0 mls/hr UNSCH PRN IV WITH DIALYSIS; Start 05/07/17 at 18:00 Mannitol (Mannitol Inj) 12.5 gm UNSCH PRN IV WITH DIALYSIS; Start 05/07/17 at 18:00 Albumin Human (Albumin 25% Inj) 25 gm UNSCH PRN IV WITH DIALYSIS; Start at 18:00 Sodium Chloride (NS Flush) 5 ml UNSCH PRN IV FLUSH WITH DIALYSIS; Start at 18:00 Heparin Sodium (Porcine) (Heparin Inj) Dwell Heparin to f... UNSCH PRN OTHER WITH DIALYSIS Last administered on 05/20/17 11:36; Start 05/07/17 at 18:00 Gentamicin Sulfate (Gentamicin (Dialysis) Inj) 10 mg UNSCH PRN OTHER WITH DIALYSIS Last administered on 05/20/17 11:36; Start 05/07/17 at 18:00 Gelatin (Gelfoam 12 Mm/7 Mm Top) 1 foam UNSCH PRN TOPICAL WITH DIALYSIS; Start 05/07/17 at 18:00 Ondansetron HCl (Zofran Inj) 4 mg UNSCH PRN IV NAUSEA OR VOMITING; Start at 18:00 Acetaminophen (Tylenol) 650 mg UNSCH X1 PRN PO WITH DIALYSIS Last administered on 05/08/17 10:07; Start 05/07/17 at 18:00; Stop 05/14/17 at 17:59; Status DC Diphenhydramine HCl (Benadryl) 25 mg UNSCH PRN PO WITH DIALYSIS; Start at 18:00 Nitroglycerin (Nitrostat Sl) 0.4 mg UNSCH PRN SL WITH DIALYSIS; Start 05/07/17 at 18:00 Clonidine (Catapres) 0.1 mg UNSCH PRN PO WITH DIALYSIS; Start 05/07/17 at 18:00 Polyethylene Glycol (Miralax) 17 gm DAILY PO Last administered on 05/10/17 07: 52; Start 05/08/17 at 09:00; Stop 05/13/17 at 17:16; Status DC Lactulose (Lactulose Liq) 30 ml BID PO Last administered on 05/10/17 07:51; Start 05/08/17 at 09:00; Stop 05/13/17 at 17:16; Status DC Bisacodyl (Dulcolax Supp) 10 mg DAILY PRN RECTAL CONSTIPATION; Start 05/08/17 at 08:15; Stop 05/08/17 at 08:16; Status DC Diatrizoate Meglum/ Diatrizoate Sod ( Gastroview Liq) 18 ml ONCE ONCE PO Last administered on 05/09/17 16:42; Start 05/09/17 at 14:15; Stop 05/09/17 at 14:16; Status DC Heparin Sodium (Porcine) 300 units 300 units NOW ONCE IV ; Start 05/09/17 at 18 :30; Stop 05/09/17 at 18:31; Status DC Potassium Chloride (KCl 20 Meq Premix Inj) 100 ml @ 50 mls/hr BOLUS ONCE IV Last administered on 05/10/17 13:31; Start 05/10/17 at 12:30; Stop 05/10/17 at 14:29; Status DC Sucralfate 1 gm 1 gm Q8HR PO Last administered on 05/13/17 04:46; Start at 14:00; Stop 05/13/17 at 13:59; Status DC Potassium Chloride (KCl 20 Meq Premix Inj) 100 ml @ 50 mls/hr ONCE ONCE IV Last administered on 05/11/17 08:54; Start 05/11/17 at 08:30; Stop 05/11/17 at 10:29; Status DC Metronidazole (Flagyl) 500 mg Q8HR PO Last administered on 05/21/17 05:25; Start 05/11/17 at 14:00; Stop 05/25/17 at 12:00 Morphine Sulfate 4 mg 4 mg NOW ONCE IV PUSH Last administered on 05/12/17 09: 58; Start 05/12/17 at 09:45; Stop 05/12/17 at 09:46; Status DC Potassium Chloride (KCl 40 Meq Premix Inj) 100 ml @ 25 mls/hr ONCE ONCE IV Last administered on 05/12/17 13:51; Start 05/12/17 at 13:45; Stop 05/12/17 at 17: 44; Status DC Vancomycin HCl (VANCOMYCIN for oral use only) 500 mg QID PO Last administered on 05/20/17 22:53; Start 05/13/17 at 13:00; Stop 05/25/17 at 23:00 Dronabinol (Marinol) 5 mg BID@11,16 PO Last administered on 05/20/17 17:37; Start 05/14/17 at 16:00 Heparin Sodium (Porcine) (*HEPARIN INJ Periprocedural ONLY) 10,000 units STK- MED ONCE .ROUTE Last administered on 05/15/17 15:50; Start 05/15/17 at 15:24; Stop 05/15/17 at 15:25; Status DC Sodium Chloride (NS Flush) UNSCH PRN IVF SEE PROTOCOL; Start 05/15/17 at 16:00 Heparin Sodium (Porcine) (Heparin Inj) UNSCH PRN IV FLUSH SEE PROTOCOL; Start 05/15/17 at 16:00 Iohexol (Omnipaque 350 Inj) 10 ml STK-MED ONCE IV Last administered on 15:50; Start 05/15/17 at 20:42; Stop 05/15/17 at 20:43; Status DC Potassium Chloride (KCl) 30 meq ONCE ONCE PO Last administered on 05/16/17 11: 06; Start 05/16/17 at 09:00; Stop 05/16/17 at 09:01; Status DC Dexamethasone (Decadron) 40 mg ONCE ONCE PO ; Start 05/16/17 at 13:00; Stop 05/16 at 13:01; Status DC Potassium Chloride (KCl) 30 meq ONCE ONCE PO Last administered on 05/17/17 08: 57; Start 05/17/17 at 07:45; Stop 05/17/17 at 07:46; Status DC Potassium Chloride (KCl) 20 meq ONCE ONCE PO Last administered on 05/17/17 15: 00; Start 05/17/17 at 13:00; Stop 05/17/17 at 13:01; Status DC Granisetron HCl 1 mg 1 mg ONCE ONCE IV PUSH Last administered on 05/18/17 17: 02; Start 05/18/17 at 16:30; Stop 05/18/17 at 16:31; Status DC Dexamethasone Sodium Phosphate/ Sodium Chloride (Decadron Inj/NS Inj) 55 ml @ 220 mls/hr ONCE ONCE IV Last administered on 05/18/17 17:02; Start 05/18/17 at 16:30; Stop 05/18/17 at 16:44; Status DC Doxorubicin HCl 91 mg 91 mg ONCE ONCE IV PUSH Last administered on 05/18/17 17 :35; Start 05/18/17 at 17:00; Stop 05/18/17 at 17:01; Status DC Vincristine Sulfate 2 mg/ Sodium Chloride 52 ml @ 312 mls/hr ONCE ONCE IV Last administered on 05/18/17 17:50; Start 05/18/17 at 17:30; Stop 05/18/17 at 17: 39; Status DC Cyclophosphamide/ Sodium Chloride (Cytoxan Inj/NS 500 ml Inj) 500 ml @ 500 mls/ hr ONCE ONCE IV Last administered on 05/18/17 18:08; Start 05/18/17 at 18:00; Stop 05/18/17 at 18:59; Status DC Prednisone 91 mg 91 mg HS PO Last administered on 05/20/17 22:53; Start at 21:00; Stop 05/22/17 at 21:01 Sodium Chloride (NS 250 ml Inj) 250 ml @ 0 mls/hr ONCE ONCE IV Last administered on 05/18/17 17:00; Start 05/18/17 at 17:00; Stop 05/18/17 at 17:01; Status DC Warfarin Sodium (Coumadin) 1 mg DAILY@16 PO Last administered on 05/20/17 17:37 ; Start 05/19/17 at 16:00 Patient Medication Teaching (Coumadin Booklet) 1 ONCE ONCE OTHER Last administered on 05/19/17 16:00; Start 05/19/17 at 16:00; Stop 05/19/17 at 16:01; Status DC Warfarin Sodium 1 mg 1 mg NOW ONCE PO Last administered on 05/19/17 19:40; Start 05/19/17 at 19:45; Stop 05/19/17 at 19:46; Status DC Sodium Chloride (NS 250 ml Inj) 250 ml @ 15 mls/hr ONCE ONCE IV ; Start at 10:00; Stop 05/21/17 at 02:39; Status DC Albuterol Sulfate (Ventolin Hfa Inh) 2 puff Q6HR INH ; Start 05/21/17 at 00:00 A/P Assessment and Plan A/P Acute Hypoxic Respiratory Failure-resolved --stable on RA Acute Submassive Pulmonary Embolism Right Heart Dysfunction Global severe left ventricular systolic dysfunction Cardiogenic Shock-resolved -- 2d echo 05/02: EF 30-35%, RV dysfunction with dilation --Repeat ECHO limited study scheduled on 05/09-RV function appears to have normalized, question of interatrial shunt for which cardiology consulted-d/w Dr. Taveras, recommended that once off anticoagulation, would need to be on ASA and require f/u echo periodically for evaluation. Acute Kidney Injury Hypokalemia-improved -- likely secondary to cardiogenic shock -HD initiated. - Nephrology following, Dr. Haley --Left IJ vas catheter, on hemodialysis --Hemodialysis per nephrology Hyperphosphatemia protein calorie malnutrition- severe Ileus -continue Phoslo -started on diet; awaiting calorie count and director of philanthropy recommendations. --evaluated by General surgery and GI . -Expanded bowel regimen MiraLAX, lactulose. Large Cell B-cell lymphoma Pulmonary Embolism anemia of chronic disease C. difficile colitis -- hematology/oncology following Dr. Connelly-chemo with CHOP regimen initiated. -- continue heparin drip. started on low dose coumadin- per hematology. --continue Flagyl and Vanco- plan for 14 days- evaluated by ID . continue PT. Prophylaxis: DVT: SCDs, heparin drip/coumadin Catalina Eller MD May 21, 2017 07:52
[2017-05-21] MEDS: CHLORHEXIDINE 0.12% (ORAL KIT) 15 ML CUP MT SCH ×2 (08:00→20:00)
[2017-05-21 08:27] LABS: AUTOMATED NEUTROPHIL # 4.4 TH/MM3 (1.8-7.7); BASOPHIL % 0.4 % (0.0-2.0); HEMO FLAGS DIFF FINAL; LYMPH % 1.2 % (9.0-44.0); LYMPHOCYTE # 0.1 TH/MM3 (1.0-4.8); MEAN CELL VOLUME 87.8 FL (80.0-100.0); MEAN CORPUSCULAR HEMOGLOBIN 29.4 PG (27.0-34.0); MEAN CORPUSCULAR HGB CONC 33.5 % (32.0-36.0); MONO % 0.6 % (0.0-8.0); NEUT % 97.8 % (16.0-70.0); PLATELET COUNT 262 TH/MM3 (150-450); RED BLOOD COUNT 2.39 MIL/MM3 (4.50-5.90); RED CELL DISTRIBUTION WIDTH 18.3 % (11.6-17.2); WHITE BLOOD COUNT 4.5 TH/MM3 (4.0-11.0)
[2017-05-21 08:31] LABS: APTT (PATIENT) 58.8 SEC (24.3-30.1); INTERNATIONAL NORMALIZED RATIO 1.2 RATIO; PROTHROMBIN TIME - PATIENT 13.1 SEC (9.8-11.6)
[2017-05-21] MEDS: NIFEdipine 90 MG SUSTAINED RELEASE TAB PO SCH (09:00)
[2017-05-21 09:06] LABS: ANION GAP 10 MEQ/L (5-15); AST (GOT) 10 U/L (15-37); BICARBONATE 28.7 MEQ/L (21.0-32.0); BLOOD UREA NITROGEN 40 MG/DL (7-18); CHLORIDE 96 MEQ/L (98-107); GLOMERULAR FILTRATION RATE 18 ML/MIN (>89); LDH SERUM 359 U/L (87-241); POTASSIUM 3.5 MEQ/L (3.5-5.1); SODIUM (NA) 135 MEQ/L (136-145)
--- NOTE | 2017-05-21 09:10 | RADRPT ---
EXAM DATE/TIME: 05/15/2017 00:00 [facility] COMPARISON: No previous studies available for comparison. INDICATIONS : Patient with acute renal failure in need of dialysis catheter replacement. MEDICAL HISTORY : Acute pancreatitis, Non hodgkins lymphoma, Pleural effusion, ETOH abuse, Chronic smoker, Dialysis, [facility] SURGICAL HISTORY : Bone biopsy, Thoracentesis, Port placement ENCOUNTER: Initial ACUITY: 1 month PAIN SCORE: 0/10 IMAGE SERIES: PROCEDURE : 1. Temporary central venous catheter removal. The prescribed catheter was removed intact and hemostasis was achieved with direct pressure. The sit e was dressed appropriately. The patient tolerated the procedure well. CONCLUSION: Uncomplicated catheter removal. Bryon Caleor Jr., MD on May 21, 2017 at 9:09 Board Certified Radiologist. This report was verified electronically.
--- NOTE | 2017-05-21 09:15 | RADRPT ---
EXAM DATE/TIME: 05/15/2017 15:13 [facility] COMPARISON: No previous studies available for comparison. INDICATIONS : Patient with acute renal failure in need of dialysis catheter placement. MEDICAL HISTORY : Acute pancreatitis, Non hodgkins lymphoma, Pleural effusion, ETOH abuse, Chronic smoker, Dialysis, [facility] SURGICAL HISTORY : Bone biopsy, Thoracentesis, Port placement ENCOUNTER: Initial ACUITY: 1 month PAIN SCORE: 0/10 FLUORO TIME: 2 minutes IMAGE SERIES: 2 CONTRAST: 10 cc Omnipaque (iohexol) 350 ACCESS: Left internal jugular vein DEVICE(S): 1.) 14 Marshallese dual lumen 24 cm Vas Cath PROCEDURE : 1. Ultrasound guided venipuncture. 2. Fluoroscopic guidance. 3. Superior venacavogram 4. Central line placement. The risks, benefits and alternatives to the procedure were explained and verbal and written consent w as obtained. The site was prepped in sterile fashion. Full sterile technique was used, including ca p, mask, sterile gloves and gown and a large sterile sheet. Hand hygiene and 2% chlorhexidine prep w as utilized per protocol for cutaneous antisepsis with appropriate dry time for site. The skin and subcutaneous tissues were infiltrated with local anesthetic solution. A suitable site a almas the vein was selected with ultrasound and fluoroscopic guidance. A small incision was made. Th e left internal jugular vein was accessed under direct ultrasound visualization using the micropunctu re technique. Attempts were made at passing a 0.018 wire centrally but this was initially unsuccessf ul. A venogram was performed through the micropuncture catheter highlight in the tortuous anatomy. Th ere is also a narrowing involving the brachiocephalic vein near its junction with the SVC. Exchange f or an 035 wire was performed and this in combination with a Berenstein catheter was utilized to gain access to the right atrium. The tract was dilated. The catheter was advanced into position under dir ect fluoroscopic visualization. The catheter was fixed in place with suture and a sterile dressing w as applied. The patient tolerated the procedure well and there were no complications. CONCLUSION: Mild narrowing involving the brachiocephalic vein near its junction with the SVC. This is not flow li miting. A left-sided vas catheter was placed. Bryon Calero Jr., MD on May 21, 2017 at 9:11 Board Certified Radiologist. This report was verified electronically.
[2017-05-21 09:20] LABS: ALKALINE PHOSPHATASE 82 U/L (45-117); ALT (GPT) 7 U/L (12-78); TOTAL BILIRUBIN ADULT 0.7 MG/DL (0.2-1.0)
[2017-05-21] MEDS: PANTOPRAZOLE SODIUM 40 MG VIAL IV PUSH SCH (11:50)
[2017-05-21] MEDS: DRONABINOL 5 MG CAP PO SCH ×2 (11:51→17:27)
[2017-05-21] MEDS: ALLOPURINOL 100 MG TAB PO SCH (11:51)
[2017-05-21] MEDS: SODIUM CHLORIDE 0.9% FLUSH 10 ML FLUSH IV FLUSH PRN (11:52)
[2017-05-21] MEDS: VANCOMYCIN 500 MG VIAL (FOR ORAL USE ONLY) PO SCH ×3 (11:53→22:10)
[2017-05-21] MEDS: CALCIUM ACETATE 667 MG CAP PO SCH ×2 (11:54→17:27)
--- NOTE | 2017-05-21 12:43 | PD.ONC.PN ---
Subjective Subjective Remarks Afebrile overnight. Patient resting in bed in nad. Ate eggs and a biscuit for breakfast this morning. Objective Data Date Time Temp Pulse Resp B/P Pulse Ox O2 Delivery O2 Flow Rate FiO2 05/21/17 11:21 93 05/21/17 08:00 96.3 72 16 126/75 97 05/21/17 04:00 96.7 81 17 114/62 94 05/21/17 00:00 97.0 65 17 106/56 96 05/20/17 23:02 80 05/20/17 20:00 97.1 81 17 103/58 96 05/20/17 17:52 97 21 05/20/17 16:00 97.1 81 18 97/63 97 05/20/17 12:53 93 21 Result Diagram: 05/21/17 0530 05/21/17 0530 Laboratory Results Laboratory Tests Test 05/20/17 05/20/17 05/20/17 05/21/17 14:35 18:50 19:41 05:30 Sodium Level 137 MEQ/L 135 MEQ/L Potassium Level 3.5 MEQ/L 3.5 MEQ/L Chloride Level 97 MEQ/L 96 MEQ/L Carbon Dioxide Level 27.9 MEQ/L 28.7 MEQ/L Anion Gap 12 MEQ/L 10 MEQ/L Blood Urea Nitrogen 23 MG/DL 40 MG/DL Creatinine 3.68 MG/DL 4.35 MG/DL Estimat Glomerular Filtration 21 ML/MIN 18 ML/MIN Rate Random Glucose 132 MG/DL 118 MG/DL Uric Acid 3.6 MG/DL Calcium Level 8.6 MG/DL 8.2 MG/DL Total Bilirubin 0.6 MG/DL 0.7 MG/DL Aspartate Amino Transf 11 U/L 10 U/L (AST/SGOT) Alanine Aminotransferase 8 U/L 7 U/L (ALT/SGPT) Alkaline Phosphatase 87 U/L 82 U/L Lactate Dehydrogenase 363 U/L 359 U/L Total Protein 5.9 GM/DL 5.5 GM/DL Albumin 2.2 GM/DL 2.2 GM/DL Blood Type B POSITIVE B POSITIVE B POSITIVE Antibody Screen NEGATIVE Crossmatch Leukocyte-Reduced Leukocyte-Reduced Red Blood Red Blood Cells Cells Blood Bank Comment White Blood Count 4.5 TH/MM3 Red Blood Count 2.39 MIL/MM3 Hemoglobin 7.0 GM/DL Hematocrit 21.0 % Mean Corpuscular Volume 87.8 FL Mean Corpuscular Hemoglobin 29.4 PG Mean Corpuscular Hemoglobin 33.5 % Concent Red Cell Distribution Width 18.3 % Platelet Count 262 TH/MM3 Mean Platelet Volume 7.6 FL Neutrophils (%) (Auto) 97.8 % Lymphocytes (%) (Auto) 1.2 % Monocytes (%) (Auto) 0.6 % Eosinophils (%) (Auto) 0.0 % Basophils (%) (Auto) 0.4 % Neutrophils # (Auto) 4.4 TH/MM3 Lymphocytes # (Auto) 0.1 TH/MM3 Monocytes # (Auto) 0.0 TH/MM3 Eosinophils # (Auto) 0.0 TH/MM3 Basophils # (Auto) 0.0 TH/MM3 CBC Comment DIFF FINAL Differential Comment Prothrombin Time 13.1 SEC Prothromb Time International 1.2 RATIO Ratio Activated Partial 58.8 SEC Thromboplast Time Imaging Studies Last 24 hours Impressions Chest X-Ray 05/21/17 0600 Signed Impressions: Service Date/Time: May 06:05 - CONCLUSION: Bibasilar opacities the majority represent effusion appreciated without posterior left lower lobe retrocardiac density consolidation atelectasis versus infiltrate there was underlying in the right medial base suggesting air fluid level the possibility of cavitary lesion with air-fluid level cannot be excluded. There is persistent mediastinal mass widening. Stanford Mcdonough MD Administered Medications Medications (Trade) Dose Ordered Sig/Shyla Route PRN Reason Start Time Stop Time Status Last Admin Dose Admin Sodium Chloride (NS Flush) 2 ml UNSCH PRN IV FLUSH FLUSH AFTER USING IV ACCESS 04/18/17 17:30 05/21/17 11:52 Hydralazine HCl (Apresoline Inj) 10 mg Q6HR PRN IV PUSH SBP>160, DBP>90 04/21/17 17:00 04/27/17 10:15 Nifedipine (Procardia Xl) 90 mg DAILY PO 04/28/17 09:00 05/21/17 09:00 Clonidine (Catapres) 0.1 mg Q6H PRN PO SBP>160, DBP>90 04/27/17 15:00 04/29/17 08:07 Ondansetron HCl (Zofran Inj) 4 mg Q6HR PRN IV PUSH NAUSEA OR VOMITING 04/30/17 11:30 05/07/17 10:06 Promethazine HCl (Phenergan Inj) 25 mg Q6H PRN IM NAUSEA OR VOMITING 04/30/17 11:30 05/01/17 13:27 Acetaminophen/ Hydrocodone Bitart ([place] 5-325 Mg) 1 tab Q6H PRN PO PAIN SCALE 1 TO 10 04/30/17 11:30 05/12/17 02:48 Chlorhexidine Gluconate 15 ml 15 ml BID@08,20 MT 05/02/17 20:00 05/20/17 20:00 Fentanyl Citrate 250 ml @ 0 mls/hr TITRATE IV 05/02/17 10:00 05/10/17 05:36 Propofol (Diprivan 1000 Mg/100ml Inj) 100 ml @ 0 mls/hr TITRATE IV 05/02/17 10:00 05/10/17 06:54 Miscellaneous Information Patient in critical care unit? Ass... [id number] .XX 05/02/17 17:15 05/02/17 17:30 Heparin Sodium/ Dextrose (Heparin-D5W Inj) 250 ml @ 0 mls/hr TITRATE IV 05/03/17 02:00 05/20/17 13:02 Calcium Acetate (Phoslo) 2,668 mg TID PO 05/03/17 09:00 05/21/17 11:54 Allopurinol (Zyloprim) 200 mg DAILY PO 05/06/17 09:00 05/21/17 11:51 Pantoprazole Sodium (Protonix Inj) 40 mg DAILY IV PUSH 05/07/17 12:00 05/21/17 11:50 Artificial Tears 1 applic 1 applic Q8H EACH EYE 05/07/17 18:00 05/19/17 10:00 Sodium Chloride (NS 1000 ml Inj) 1,000 ml @ 0 mls/hr TITRATE PRN IV WITH DIALYSIS 05/07/17 18:00 05/11/17 18:29 Heparin Sodium (Porcine) (Heparin Inj) Dwell Heparin to f... UNSCH PRN OTHER WITH DIALYSIS 05/07/17 18:00 05/20/17 11:36 Gentamicin Sulfate (Gentamicin (Dialysis) Inj) 10 mg UNSCH PRN OTHER WITH DIALYSIS 05/07/17 18:00 05/20/17 11:36 Metronidazole (Flagyl) 500 mg Q8HR PO 05/11/17 14:00 05/25/17 12:00 05/21/17 05:25 Vancomycin HCl (VANCOMYCIN for oral use only) 500 mg QID PO 05/13/17 13:00 05/25/17 23:00 05/21/17 11:53 Dronabinol (Marinol) 5 mg BID@11,16 PO 05/14/17 16:00 05/21/17 11:51 Prednisone (Deltasone) 91 mg HS PO 05/18/17 21:00 05/22/17 21:01 05/20/17 22:53 Warfarin Sodium (Coumadin) 1 mg DAILY@16 PO 05/19/17 16:00 05/20/17 17:37 Objective Remarks GENERAL: chronically ill male sitting up in bed watching TV SKIN: Warm and dry. vas-cath, left neck. HEAD: Normocephalic. EYES: No injection or drainage. NECK: Supple, trachea midline. CARDIOVASCULAR: Regular rate and rhythm RESPIRATORY: Breath sounds equal bilaterally. No accessory muscle use. GASTROINTESTINAL: Abdomen soft, non-tender, nondistended. EXTREMITIES: No cyanosis, or edema. NEUROLOGICAL: awake and alert, normal speech. Assessment/Plan Problem List: (1) Non-Hodgkin lymphoma Status: Acute Plan: --Has aggressive triple hit lymphoma. --Received Rituxan x1. --Neck adenopathy relatively stable. --05/18-->[facility] chemotherapy (2) Pulmonary emboli Status: Acute Plan: --on heparin gtt-->coumadin --CTA showed large PE --s/p tpa therapy on 05.02. now on heparin gtt. (3) ALDO (acute kidney injury) Status: Acute Plan: Renal function has not recovered. Remains on HD. Minimal urine output. (4) Normocytic anemia Status: Acute Plan: --multifactorial due to chronic disease, renal failure --monitor and transfuse as needed (5) C. difficile colitis Status: Acute Plan: --on PO Vanco Assessment 47y/o male admitted with pancreatitis, found to have NHL. Plan 1. give 2 units pRBC during dialysis tomorrow 2. monitor CBC, LDH, uric acid 3. from an oncology standpoint the patient could be discharged once his INR is therapeutic. will increase coumadin to 2mg PO daily. Attending Statement The exam, history, and the medical decision-making described in the above note were completed with the assistance of the mid-level provider. I reviewed and agree with the findings presented. I attest that I had a [id number] encounter with the patient on the same day, and personally performed and documented my assessment and findings in the medical record. Feeling stronger. More urine output. The left axillary mass and right neck mass softer. No TLS. Bridge to coumadin. Continue dialysis per nephrology. Problem Qualifiers (1) Non-Hodgkin lymphoma: Brenda Platt May 21, 2017 12:43 Ruslan Connelly MD May 21, 2017 15:38
[2017-05-21] MEDS ORDERED: WARFARIN SOD 2 MG TAB PO SCH (16:00)
[2017-05-21] MEDS: HEPARIN-D5W 25,000 U/250 ML 250 ML IV SCH (17:30)
--- NOTE | 2017-05-21 18:20 | HHI.NPPN ---
Subjective History of Present Illness 47-year-old male with no known past medical history who came to the hospital with complaint of nausea, vomiting and abdominal pain on April 18. I was called to see the patient because of elevated BUN and creatinine. The patient had a creatinine of 1.3 on presentation which improved to 0.7 and 0.8, then started increasing for last few days. Additional Remarks Patient is alert, no SOB, no complain, started eating better. Objective Data Data 05/20/17 05/21/17 18:59 06:59 Intake Total 2186 ml Output Total 2600 ml 100 ml Balance -414 ml -100 ml Intake Oral 960 ml IV Total 1226 ml Output Urine Total 100 ml 100 ml Hemodialysis 2500 ml # Bowel Movements 0 1 Vital Signs Date Time Temp Pulse Resp B/P Pulse Ox O2 Delivery O2 Flow Rate FiO2 05/21/17 16:00 96.5 70 16 110/68 96 05/21/17 12:00 96.2 68 12 117/66 96 05/21/17 11:21 93 05/21/17 08:00 96.3 72 16 126/75 97 05/21/17 04:00 96.7 81 17 114/62 94 05/21/17 00:00 97.0 65 17 106/56 96 05/20/17 23:02 80 05/20/17 20:00 97.1 81 17 103/58 96 -: 05/21/17 0530 05/21/17 0530 Physical Exam General Appearance: Malnourished Eyes Eye Exam: Pupils Equal Throat Throat Exam: Oral Mucosa [place] & Moist Pulmonary Resp Exam: Crackles, Rhonchi, Decreased Bases, Diminished Breath Sounds, Poor Inspiratory Effort Cardiology CV Exam: Regular, Normal Sinus Rhythm Gastrointestinal/Abdomen GI Exam: Soft, Non-Tender, Bowel Sounds Present, Distended Extremeties Extremities Exam: Trace Edema Neurologic Neuro Exam: Awake Assessment/Plan Assessment Summary: ALDO/Acute Renal Failure Problem List: (1) Non-Hodgkin lymphoma Plan: Hematology following, need for chemotherapy in the future. (2) Adenopathy (3) Pleural effusion (4) Shortness of breath (5) Pulmonary emboli Plan: on anticoagulation. (6) Acute pancreatitis (7) ALDO (acute kidney injury) Plan: He has become dialysis dependent. Plan Still no signs of renal recovery. Monitor renal function and urine output. Avoid nephrotoxins. Multiple medical problems, alcohol induced pancreatitis. Follow the urine out put and BMP. Urine out put is low. Check iron stores, start Epogen with HD. HD will be in AM. Problem Qualifiers (1) Non-Hodgkin lymphoma: (2) Acute pancreatitis: Qualified Code: K85.20 - Alcohol-induced acute pancreatitis, unspecified complication status Leonid Haley MD May 21, 2017 18:20
[2017-05-21] MEDS: predniSONE 20 MG TAB PO SCH (22:10)
[2017-05-22] VITALS (9 sets, daily range): BP systolic 94–123; BP diastolic 53–77; PULSE 73–96; RESP 17–20; TEMP 95.9–97.8; O2SAT 92–99
[2017-05-22] MEDS: ARTIFICIAL TEARS OPTH OINT 3.5 APPLIC/3.5 GM TUBO EACH EYE SCH ×3 (00:59→18:00)
[2017-05-22] MEDS: ALBUTEROL SULFATE 90 MCG/ACT HFA 18 GM INHALER INH SCH ×4 (06:00→21:29)
[2017-05-22] MEDS: metroNIDAZOLE 500 MG TAB PO SCH ×3 (06:04→21:29)
--- NOTE | 2017-05-22 07:42 | HHI.PR ---
Subjective Remarks resting comfortably with no distress. no new complaints. Objective Vitals Vital Signs Date Time Temp Pulse Resp B/P Pulse Ox O2 Delivery O2 Flow Rate FiO2 05/22/17 04:00 96.8 76 17 94/55 96 05/22/17 00:00 97.0 96 18 98/53 92 05/21/17 21:00 75 05/21/17 20:50 96 21 05/21/17 20:00 96.8 79 17 117/57 97 05/21/17 16:00 96.5 70 16 110/68 96 05/21/17 12:00 96.2 68 12 117/66 96 05/21/17 11:21 93 05/21/17 08:00 96.3 72 16 126/75 97 I/O 05/21/17 05/21/17 05/21/17 05/22/17 05/22/17 05/22/17 06:59 14:59 22:59 06:59 14:59 22:59 Intake Total 50 ml 413 ml 77 ml Output Total 100 ml 50 ml 120 ml 290 ml Balance -100 ml 0 ml 293 ml -213 ml Intake Oral 50 ml 100 ml IV Total 313 ml 77 ml Output Urine Total 100 ml 50 ml 120 ml 290 ml # Voids 1 # Bowel Movements 1 1 Result Diagram: 05/21/17 0530 05/21/17 0530 Imaging Last Impressions Chest X-Ray 05/21/17599 Signed Impressions: Service Date/Time: May 06:05 - CONCLUSION: Bibasilar opacities the majority represent effusion appreciated without posterior left lower lobe retrocardiac density consolidation atelectasis versus infiltrate there was underlying in the right medial base suggesting air fluid level the possibility of cavitary lesion with air-fluid level cannot be excluded. There is persistent mediastinal mass widening. Stanford Mcdonough MD Abdomen X-Ray 05/15/17 0600 Draft Impressions: Service Date/Time: Monday, May 15, 2017 04:29 - CONCLUSION: Findings of mild small bowel ileus. There has been no significant change when compared to the prior exam. Jadon Carroll MD Central Venous Line 05/15/17 0000 Signed Impressions: Service Date/Time: Monday, May 15, 2017 00:00 - CONCLUSION: Uncomplicated catheter removal. Bryon Calero Jr., MD Catheter Placement X-Ray 05/15/17 0000 Signed Impressions: Service Date/Time: Monday, May 15, 2017 15:13 - CONCLUSION: Mild narrowing involving the brachiocephalic vein near its junction with the SVC. This is not flow limiting. A left-sided vas catheter was placed. Bryon Calero Jr., MD Abdomen/Pelvis CT 05/09/17 0000 Signed Impressions: Service Date/Time: Tuesday, May 09, 2017 21:16 - CONCLUSION: 1. Diffusely distended loops of small bowel down to the cecum suggest ileus. 2. Evidence of mesenteric and retroperitoneal adenopathy. 3. Large bilateral pleural effusions , moderate amount of free fluid in the pelvis and mild ascites in the upper abdomen. 4. Abnormal appearance to the parenchyma of the right kidney with patchy areas of hyperdensity in a mosaic pattern. This of uncertain significance. The patient had iodinated contrast for a CT pulmonary angiogram 7 days ago; this could potentially represent residual parenchymal contrast which would be nonspecific, but raises the possibility of either obstruction or renal infarctions. Bryon Evans MD Renal Ultrasound 05/05/17 0000 Signed Impressions: Service Date/Time: Friday, May 05, 2017 20:06 - CONCLUSION: 1. Kidneys are borderline echogenic which can be seen with medical renal disease. 2. No evidence of hydronephrosis. 3. Abdominal ascites. 4. Multiple dilated bowel loops. 5. Bilateral pleural effusions. Tray Patel MD Head CT 05/03/17 0000 Signed Impressions: Service Date/Time: Wednesday, May 03, 2017 17:22 - CONCLUSION: No acute intracranial disease. No hemorrhage seen. Tray Patel MD CT Angiography 05/02/17 0000 Signed Impressions: Service Date/Time: Tuesday, May 02, 2017 11:10 - CONCLUSION: 1. There is pulmonary embolus in the right pulmonary artery, right upper lobe and lower lobe branches. 2. Resorption of previously seen gas in the left axilla with fluid collection at this site with postprocedural change and possibly postprocedural hemorrhage not significantly changed in size. 3. Interval development of right lung airspace process may represent postobstructive pneumonia and there is mucus within the trachea not present yesterday. 4. Right pleural effusion is smaller and left pleural effusion is larger. 5. No change in bulky adenopathy. Leonor Chavez MD Upper Extremity Ultrasound 04/30/17 0000 Signed Impressions: Service Date/Time: April 12:25 - CONCLUSION: There some superficial thrombosis of a vein in the forearm. The deep venous system is patent. Large fluid collection left axilla. Significant soft tissue edema throughout the upper arm. Rinku Hillman MD Thoracentesis Ultrasound 04/30/17 0000 Signed Impressions: Service Date/Time: April 12:14 - CONCLUSION: Uncomplicated ultrasound guided thoracentesis. Tray Patel MD Port Line Insertion 04/27/17 0000 Signed Impressions: Service Date/Time: Thursday, April 27, 2017 14:56 - CONCLUSION: 1. Bulky bilateral lower cervical lymphadenopathy. 2. Uncomplicated ultrasound and fluoroscopic guided implanted central venous port catheter placement as described in detail above. An 8 [employer] port was placed. Liang Peralta MD Bone Biopsy CT 04/27/17 0000 Signed Impressions: Service Date/Time: Thursday, April 27, 2017 16:22 - CONCLUSION: 1. Uncomplicated CT guided bone marrow aspirate. 2. Uncomplicated CT guided bone marrow biopsy. Tray Patel MD Chest CT 04/25/17 0000 Signed Impressions: Service Date/Time: Wednesday, April 26, 2017 19:00 - CONCLUSION: The right pleural effusion is slightly larger on the left side has not changed. Extensive bulky adenopathy as before and malignancies such as lymphoma is suspected. Leonor Chavez MD Gall Bladder Ultrasound 04/22/17 0000 Signed Impressions: Service Date/Time: Saturday, April 22, 2017 07:35 - CONCLUSION: Small liver with focal abdomen only incompletely evaluated. Large right pleural effusion. effusion. Kirk Briceño MD FACR Abdomen CT 04/20/17 0000 Signed Impressions: Service Date/Time: Thursday, April 20, 2017 19:40 - CONCLUSION: Limited exam because of lack of intravenous contrast. Lymphoma is suspected. Pathological diagnosis could be obtained with ultrasound biopsy of the cervical, axillary or inguinal adenopathy. Kirk Briceño MD FACR Objective Remarks GENERAL: in no acute distress CARDIOVASCULAR: Regular rate and regular rhythm without murmurs, gallops, or rubs. RESPIRATORY: Clear to auscultation. Breath sounds equal bilaterally. No wheezes , rales, or rhonchi. GASTROINTESTINAL: Abdomen soft, non-tender, nondistended. Normal, active bowel sounds MUSCULOSKELETAL: Extremities without clubbing, cyanosis, or edema. NEURO: awake and alert Procedures 04/[address] excision biopsy 04/27- port placement 05/02-TPA 05/06-left IJ Vas-Cath placement endotracheal intubation Medications and IVs Current Medications Ondansetron HCl 4 mg 4 mg ONCE ONCE IVP Last administered on 04/18/17 17:38; Start 04/18/17 at 17:30; Stop 04/18/17 at 17:31; Status DC Sodium Chloride (NS 1000 ml Inj) 1,000 ml @ 1,000 mls/hr Q1H IV Last administered on 04/18/17 17:38; Start 04/18/17 at 17:16; Stop 04/18/17 at 18:15; Status DC Sodium Chloride 2 ml 2 ml UNSCH PRN IV FLUSH FLUSH AFTER USING IV ACCESS Last administered on 05/21/17 11:52; Start 04/18/17 at 17:30 Sodium Chloride 1,000 ml @ 1,000 mls/hr Q1H IV Last administered on 04/18/17 18:40; Start 04/18/17 at 18:37; Stop 04/18/17 at 19:36; Status DC Potassium Chloride (KCl 20 Meq Premix Inj) 100 ml @ 50 mls/hr Q2H IV Last administered on 04/18/17 22:12; Start 04/18/17 at 19:00; Stop 04/18/17 at 22:59; Status DC Ondansetron HCl (Zofran Inj) 4 mg Q6H PRN IVP NAUSEA OR VOMITING Last administered on 04/26/17 06:04; Start 04/18/17 at 19:30; Stop 04/26/17 at 13:02 ; Status DC Morphine Sulfate (Morphine Inj) 2 mg Q3H PRN IV Pain 3-5; if unable to take PO ; Start 04/18/17 at 19:30; Status Cancel Morphine Sulfate (Morphine Inj) 4 mg Q3H PRN IV Pain 6-10;if unable to take PO ; Start 04/18/17 at 19:30; Status Cancel Naloxone HCl (Narcan Inj) 0.4 mg UNSCH PRN IV SEE LABEL COMMENTS; Start at 19:30 Senna/Docusate Sodium (Porsha-Colace) 1 tab BID PO Last administered on 07:52; Start 04/18/17 at 21:00; Stop 05/13/17 at 17:16; Status DC Magnesium Hydroxide (Milk Of Magnesia Liq) 30 ml Q12H PRN PO MILD - MODERATE CONSTIPATION Last administered on 05/09/17 08:01; Start 04/18/17 at 19:30; Stop 05/13/17 at 17:16; Status DC Sennosides (Senokot) 17.2 mg Q12H PRN PO MODERATE - SEVERE CONSTIPATION; Start 04/18/17 at 19:30; Stop 05/13/17 at 17:16; Status DC Bisacodyl (Dulcolax Supp) 10 mg DAILY PRN RECTAL SEVERE CONSITIPATION; Start at 19:30; Stop 05/13/17 at 17:16; Status DC Lactulose 30 ml 30 ml DAILY PRN PO SEVERE CONSITIPATION; Start 04/18/17 at 19:30 ; Stop 05/13/17 at 17:16; Status DC Potassium Chloride/Sodium Chloride 1,000 ml @ 125 mls/hr Q8H IV ; Start at 21:00; Stop 04/18/17 at 21:00; Status DC Potassium Chloride/Sodium Chloride 1,000 ml @ 83 mls/hr Q12H3M IV Last administered on 04/23/17 01:19; Start 04/19/17 at 02:00; Stop 04/23/17 at 09:04 ; Status DC Sodium Chloride (NS 1000 ml Inj) 1,000 ml @ 125 mls/hr Q8H IV Last administered on 04/18/17 20:00; Start 04/18/17 at 20:00; Stop 04/19/17 at 16:01; Status DC Pneumococcal Polyvalent Vaccine 25 mcg 25 mcg ONCE ONCE IM Last administered on 04/19/17 11:20; Start 04/19/17 at 09:00; Stop 04/19/17 at 09:01; Status DC Ceftriaxone Sodium/Sodium Chloride (Rocephin Inj/NS Inj) 100 ml @ 200 mls/hr Q24H IV Last administered on 04/24/17 12:51; Start 04/19/17 at 13:00; Stop at 14:33; Status DC Heparin Sodium (Porcine) (Heparin Inj) 5,000 units Q8HR SQ Last administered on 05/02/17 12:46; Start 04/19/17 at 14:00; Stop 05/19/17 at 10:23; Status DC Azithromycin (Zithromax) 500 mg Q24H PO Last administered on 04/24/17 12:51; Start 04/19/17 at 13:00; Stop 04/24/17 at 14:33; Status DC Clonidine (Catapres) 0.1 mg ONCE ONCE PO Last administered on 04/20/17 22:16 ; Start 04/20/17 at 21:45; Stop 04/20/17 at 21:46; Status DC Nifedipine (Procardia Xl) 30 mg DAILY PO Last administered on 04/25/17 09:42; Start 04/21/17 at 17:00; Stop 04/25/17 at 13:12; Status DC Hydralazine HCl 10 mg 10 mg Q6HR PRN IV PUSH SBP>160, DBP>90 Last administered on 04/27/17 10:15; Start 04/21/17 at 17:00 Cefazolin Sodium/ Sodium Chloride (Ancef Inj/NS Inj) 100 ml @ 200 mls/hr ASPHALT BLENDER IV ; Start 04/21/17 at 21:30; Stop 04/24/17 at 21:29; Status DC Midazolam HCl (Versed Inj) 2 mg STK-MED ONCE .ROUTE Last administered on 09:02; Start 04/22/17 at 09:02; Stop 04/22/17 at 09:03; Status DC Bupivacaine HCl/ Epinephrine Bitart (Sensorcaine-Epi 0.5% 50 ml Inj) 50 ml STK- MED ONCE INFIL ; Start 04/22/17 at 09:25; Stop 04/22/17 at 09:26; Status Cancel Albuterol Sulfate (*ALBUTEROL NEB PERIprocedure ONLY) 2.5 mg STK-MED ONCE NEB Last administered on 04/22/17 10:06; Start 04/22/17 at 10:06; Stop 04/22/17 at 10:07; Status DC Fentanyl Citrate (fentaNYL INJ) 200 mcg STK-MED ONCE .ROUTE ; Start 04/22/17 at 10:10; Stop 04/22/17 at 10:11; Status DC Bupivacaine HCl (Marcaine Pf 0.5% Inj) 30 ml STK-MED ONCE INFIL Last administered on 04/22/17 09:25; Start 04/22/17 at 09:25; Stop 04/22/17 at 10:49 ; Status DC Miscellaneous Information ALL NURSING DEPARTME... UNSCH PRN .XX SEE LABEL COMMENTS; Start 04/22/17 at 10:01; Stop 04/23/17 at 10:00; Status DC Dextrose/Sodium Chloride 1,000 ml @ 60 mls/hr [id number] IV Last administered on 04/24/17 06:40; Start 04/23/17 at 12:45; Stop 04/24/17 at 14:36; Status DC Potassium Chloride/Dextrose/ Sodium Chloride (KCl Inj/D5W-NS 1000 ml Inj) 1,015 ml @ 70 mls/hr [id number] IV Last administered on 04/25/17 05:34; Start at 16:00; Stop 04/25/17 at 13:12; Status DC Promethazine HCl (Phenergan Inj) 25 mg ONCE ONCE IM Last administered on 11:55; Start 04/25/17 at 08:00; Stop 04/25/17 at 08:01; Status DC Nifedipine 60 mg 60 mg DAILY PO Last administered on 04/27/17 10:02; Start at 09:00; Stop 04/27/17 at 14:48; Status DC Potassium Chloride/Dextrose/ Sodium Chloride (KCl Inj/D5W-NS 1000 ml Inj) 1,015 ml @ 60 mls/hr [id number] IV Last administered on 04/27/17 18:18; Start at 15:00; Stop 04/28/17 at 11:49; Status DC Promethazine HCl (Phenergan Inj) 12.5 mg Q8H PRN IM PERSISTENT NAUSEA Last administered on 04/30/17 04:34; Start 04/26/17 at 13:15; Stop 04/30/17 at 11:28 ; Status DC Allopurinol 300 mg 300 mg DAILY PO Last administered on 05/05/17 08:12; Start 04/27/17 at 09:00; Stop 05/05/17 at 12:10; Status DC Vancomycin HCl 1000 mg/Sodium Chloride 250 ml @ 250 mls/hr ASPHALT BLENDER IV Last administered on 04/27/17 13:49; Start 04/27/17 at 10:00; Stop 04/30/17 at 09:59 ; Status DC Cefazolin Sodium/ Dextrose (Ancef 2 Gm Premix) 50 ml @ 100 mls/hr ASPHALT BLENDER IV Last administered on 04/27/17 15:42; Start 04/27/17 at 10:00; Stop 04/30/17 at 09:59; Status DC Nifedipine (Procardia Xl) 90 mg DAILY PO Last administered on 05/21/17 09:00; Start 04/28/17 at 09:00 Clonidine (Catapres) 0.1 mg Q12HR PO ; Start 04/27/17 at 21:00; Status UNV Clonidine (Catapres) 0.1 mg Q6H PRN PO SBP>160, DBP>90 Last administered on 08:07; Start 04/27/17 at 15:00 Heparin Sodium (Porcine) (*HEPARIN CENTRAL FLUSH PERIprocedural ONLY) 500 units STK-MED ONCE IV FLUSH Last administered on 04/27/17 14:51; Start 04/27/17 at 14:51; Stop 04/27/17 at 14:52; Status DC Lidocaine/ Epinephrine (Xylocaine-Epi 1%-1:100,000 Inj) 20 ml STK-MED ONCE .ROUTE Last administered on 04/27/17 14:51; Start 04/27/17 at 14:51; Stop at 14:52; Status DC Midazolam HCl (Versed Inj) 5 mg STK-MED ONCE .ROUTE Last administered on 14:52; Start 04/27/17 at 14:52; Stop 04/27/17 at 14:53; Status DC Fentanyl Citrate 250 mcg 250 mcg STK-MED ONCE .ROUTE Last administered on 14:53; Start 04/27/17 at 14:53; Stop 04/27/17 at 14:54; Status DC Sodium Chloride (NS 1000 ml Inj) 1,000 ml @ 100 mls/hr Q10H IV Last administered on 04/29/17 17:55; Start 04/29/17 at 15:00; Stop 04/30/17 at 00:59 ; Status DC Acetaminophen (Tylenol) 650 mg ONCE ONCE PO Last administered on 04/30/17 16: 44; Start 04/30/17 at 13:00; Stop 04/30/17 at 13:01; Status DC Diphenhydramine HCl 50 mg 50 mg ONCE ONCE PO Last administered on 04/30/17 16 :43; Start 04/30/17 at 13:00; Stop 04/30/17 at 13:01; Status DC Rituximab/Sodium Chloride (Rituxan Inj/NS 500 ml Inj) 571.625 ml @ 0 mls/hr ONCE ONCE IV Last administered on 05/01/17 13:15; Start 04/30/17 at 14:00; Stop 04/30/17 at 14:01; Status DC Prednisone 115 mg 115 mg Q12H PO ; Start 04/30/17 at 13:00; Stop 05/01/17 at 11: 21; Status DC Dexamethasone Sodium Phosphate 20 mg/Granisetron HCl 1 mg/Sodium Chloride 56 ml @ 224 mls/hr Q24H IV ; Start 04/30/17 at 15:00; Stop 05/01/17 at 11:26; Status DC Potassium Chloride 100 ml @ 50 mls/hr BOLUS ONCE IV Last administered on 04/30 10:20; Start 04/30/17 at 10:00; Stop 04/30/17 at 11:59; Status DC Etoposide 95.5 mg/ Doxorubicin HCl 19.1 mg/ Vincristine Sulfate 0.764 mg/ Sodium Chloride 515.089 ml @ 21.462 mls/hr Q24H IV ; Start 04/30/17 at 15:00; Stop 05/18/17 at 13:46; Status DC Cyclophosphamide/ Sodium Chloride (Cytoxan Inj/NS 500 ml Inj) 500 ml @ 500 mls/ hr ONCE ONCE IV ; Start 05/04/17 at 14:00; Stop 05/04/17 at 14:59; Status DC Ondansetron HCl (Zofran Inj) 4 mg Q6HR PRN IV PUSH NAUSEA OR VOMITING Last administered on 05/07/17 10:06; Start 04/30/17 at 11:30 Promethazine HCl (Phenergan Inj) 25 mg Q6H PRN IM NAUSEA OR VOMITING Last administered on 05/01/17 13:27; Start 04/30/17 at 11:30 Acetaminophen/ Hydrocodone Bitart ([place] 5-325 Mg) 1 tab Q6H PRN PO PAIN SCALE 1 TO 10 Last administered on 05/12/17 02:48; Start 04/30/17 at 11:30 Albuterol/ Ipratropium (Duoneb Neb) 1 ampule ONCE ONCE NEB Last administered on 04/30/17 20:16; Start 04/30/17 at 19:45; Stop 04/30/17 at 20:11; Status DC Albuterol/ Ipratropium (Duoneb Neb) 1 ampule Q2HR NEB PRN NEB sob, wheeze; Start 04/30/17 at 20:45; Stop 05/02/17 at 10:14; Status DC Morphine Sulfate (Morphine Inj) 2 mg ONCE ONCE IV PUSH Last administered on 23:36; Start 04/30/17 at 23:30; Stop 04/30/17 at 23:31; Status DC Furosemide (Lasix Inj) 10 mg ONCE ONCE IV PUSH Last administered on 05/01/17 01:01; Start 05/01/17 at 00:00; Stop 05/01/17 at 00:01; Status DC Furosemide (Lasix Inj) 20 mg ONCE ONCE IV PUSH Last administered on 05/01/17 09:09; Start 05/01/17 at 07:45; Stop 05/01/17 at 07:52; Status DC Acetaminophen (Tylenol) 650 mg NOW ONCE PO Last administered on 05/01/17 10: 51; Start 05/01/17 at 10:45; Stop 05/01/17 at 10:46; Status DC Diphenhydramine HCl 50 mg 50 mg NOW ONCE PO Last administered on 05/01/17 10: 51; Start 05/01/17 at 10:45; Stop 05/01/17 at 10:46; Status DC Rituximab/Sodium Chloride (Rituxan Inj/NS 500 ml Inj) 571.625 ml @ 0 mls/hr ONCE ONCE IV ; Start 05/01/17 at 12:00; Stop 05/01/17 at 12:01; Status DC Acetaminophen (Tylenol) 650 mg ONCE ONCE PO ; Start 05/01/17 at 11:30; Stop at 11:31; Status DC Diphenhydramine HCl (Benadryl) 50 mg ONCE ONCE PO ; Start 05/01/17 at 11:30; Stop 05/01/17 at 11:31; Status DC Prednisone 115 mg 115 mg Q12HR PO Last administered on 05/02/17 20:08; Start 05/01/17 at 11:00; Stop 05/05/17 at 21:01; Status DC Dexamethasone Sodium Phosphate/ Granisetron HCl/ Sodium Chloride (Decadron Inj/ Kytril Inj/NS Inj) 56 ml @ 224 mls/hr Q24H IV ; Start 05/01/17 at 11:30; Stop 05/06/17 at 11:44; Status DC Metoclopramide HCl (Reglan Inj) 10 mg Q8HR IV PUSH Last administered on 04:59; Start 05/01/17 at 15:30; Stop 05/09/17 at 19:03; Status DC Pantoprazole Sodium (Protonix) 40 mg DAILY PO Last administered on 05/06/17 08 :17; Start 05/01/17 at 16:00; Stop 05/07/17 at 11:49; Status DC Furosemide (Lasix Inj) 20 mg ONCE ONCE IV PUSH Last administered on 05/01/17 16:14; Start 05/01/17 at 15:30; Stop 05/01/17 at 15:31; Status DC Albuterol/ Ipratropium (Duoneb Neb) 1 ampule BID NEB INH Last administered on 05/02/17 07:47; Start 05/01/17 at 20:00; Stop 05/02/17 at 10:18; Status DC Furosemide (Lasix Inj) 20 mg STAT ONCE IV PUSH Last administered on 05/02/17 08:40; Start 05/02/17 at 08:30; Stop 05/02/17 at 08:37; Status DC Etomidate (Amidate Inj) 20 mg STK-MED ONCE .ROUTE Last administered on 12:48; Start 05/02/17 at 09:23; Stop 05/02/17 at 09:24; Status DC Dextrose (D50w (Vial) Inj) 25 ml UNSCH PRN IV PUSH HYPOGLYCEMIA-SEE COMMENTS; Start 05/02/17 at 10:00; Stop 05/16/17 at 08:09; Status DC Insulin Human Regular (NovoLIN R SUPPLEMENTAL SCALE) 1 Q6HR SQ Last administered on 05/04/17 18:00; Start 05/02/17 at 12:00; Stop 05/16/17 at 08:09 ; Status DC Chlorhexidine Gluconate (Peridex 0.12% Liq) 15 ml BID@08,20 MT Last administered on 05/20/17 20:00; Start 05/02/17 at 20:00 Magnesium Oxide 800 mg 800 mg UNSCH PRN PO For Magnesium 1.2 - 1.6 mg/dL; Start 05/02/17 at 10:00; Stop 05/03/17 at 13:51; Status DC Magnesium Sulfate 4 gm/Sodium Chloride 100 ml @ 50 mls/hr UNSCH PRN IV For Magnesium 0.9 - 1.1 mg/dL; Start 05/02/17 at 10:00; Stop 05/03/17 at 13:51; Status DC Magnesium Sulfate 2 gm/Sodium Chloride 100 ml @ 50 mls/hr UNSCH PRN IV For Magnesium 1.2 - 1.6 mg/dL; Start 05/02/17 at 10:00; Stop 05/03/17 at 13:51; Status DC Potassium Chloride 100 ml @ 50 mls/hr Q2H PRN IV For Potassium 2.8 - 3.2 mEq/L ; Start 05/02/17 at 10:00; Stop 05/03/17 at 13:51; Status DC Potassium Chloride 100 ml @ 50 mls/hr Q2H PRN IV For Potassium 3.3 - 3.5 mEq/L ; Start 05/02/17 at 10:00; Stop 05/03/17 at 13:51; Status DC Potassium Chloride 100 ml @ 50 mls/hr Q2H PRN IV For Potassium 2.8 - 3.2 mEq/L ; Start 05/02/17 at 10:00; Stop 05/03/17 at 13:51; Status DC Potassium Chloride (KCl 40 Meq Premix Inj) 100 ml @ 25 mls/hr UNSCH PRN IV For Potassium 3.3 - 3.5 mEq/L; Start 05/02/17 at 10:00; Stop 05/03/17 at 13:51; Status DC Potassium Phosphate (K-Phos) 2,000 mg Q4H PRN PO For Phosphorus < 2.5 mg/dL; Start 05/02/17 at 10:00; Stop 05/03/17 at 13:51; Status DC Potassium Phosphate 2000 mg 2,000 mg UNSCH PRN PO/TUBE SEE LABEL COMMENTS; Start 05/02/17 at 10:00; Stop 05/03/17 at 13:51; Status DC Potassium Phosphate 30 mmol/ Sodium Chloride 260 ml @ 42 mls/hr UNSCH PRN IV SEE LABEL COMMENTS; Start 05/02/17 at 10:00; Stop 05/03/17 at 13:52; Status DC Sodium Phosphate/ Sodium Chloride (Sodium Phosphate Inj/NS 250 ml Inj) 250 ml @ 42 mls/hr UNSCH PRN IV For Phosphorus < 2.5 mg/dL; Start 05/02/17 at 10:00; Stop 05/03/17 at 13:52; Status DC Albuterol/ Ipratropium (Duoneb Neb) 1 ampule Q6HR NEB INH Last administered on 05/06/17 03:23; Start 05/02/17 at 10:00; Stop 05/06/17 at 10:00; Status DC Albuterol/ Ipratropium 1 ampule 1 ampule Q2HR NEB PRN INH WHEEZING Last administered on 05/08/17 08:08; Start 05/02/17 at 10:00 Fentanyl Citrate 250 ml @ 0 mls/hr TITRATE IV Last administered on 05/10/17 05 :36; Start 05/02/17 at 10:00 Propofol (Diprivan 1000 Mg/100ml Inj) 100 ml @ 0 mls/hr TITRATE IV Last administered on 05/10/17 06:54; Start 05/02/17 at 10:00 Iohexol 75 ml 75 ml STK-MED ONCE IV Last administered on 05/02/17 11:31; Start 05/02/17 at 11:31; Stop 05/02/17 at 11:32; Status DC Cefepime HCl 2000 mg/Sodium Chloride 100 ml @ 200 mls/hr Q12H IV Last administered on 05/05/17 02:43; Start 05/02/17 at 15:00; Stop 05/05/17 at 11:53 ; Status DC Vancomycin HCl/ Sodium Chloride (Vancomycin Inj/ NS 250 ml Inj) 250 ml @ 250 mls/hr ONCE ONCE IV Last administered on 05/02/17 16:14; Start 05/02/17 at 15 :00; Stop 05/02/17 at 15:59; Status DC Heparin Sodium (Porcine) (Heparin Inj) 5,000 units ONCE ONCE IV Last administered on 05/02/17 15:35; Start 05/02/17 at 16:00; Stop 05/02/17 at 16:01 ; Status DC Miscellaneous Information Patient in critical care unit? Ass... [id number] .XX Last administered on 05/02/17 17:30; Start 05/02/17 at 17:15 Chlorhexidine Gluconate (Chlorhexidine 2% Cloth) 3 pack DAILY@04 TOPICAL Last administered on 05/07/17 03:45; Start 05/03/17 at 04:00; Stop 05/07/17 at 04:01 ; Status DC Chlorhexidine Gluconate 3 pack 3 pack UNSCH PRN TOPICAL HYGIENIC CARE; Start at 17:15; Stop 05/07/17 at 17:08; Status DC Alteplase, Recombinant/ Syringe / Bag (Activase Drip/ Syringe/Bag) 49.9999 ml @ 50 mls/hr ONCE ONCE IV Last administered on 05/02/17 19:58; Start 05/02/17 at 19:15; Stop 05/02/17 at 20:14; Status DC Sodium Chloride (NS Inj) 30 ml ONCE ONCE IVF Last administered on 05/02/17 19 :15; Start 05/02/17 at 19:15; Stop 05/02/17 at 19:28; Status DC Miscellaneous Medication Thrombolysis plan for submass... ONCE ONCE OTHER Last administered on 05/02/17 19:15; Start 05/02/17 at 19:15; Stop 05/02/17 at 19:28; Status DC Heparin Sodium/ Dextrose 250 ml @ 0 mls/hr TITRATE IV Last administered on 05/21 17:30; Start 05/03/17 at 02:00 Epinephrine HCl/ Dextrose (Adrenalin (1:1000) Inj/D5W Inj) 250 ml @ 30 mls/hr TITRATE IV Last administered on 05/04/17 09:43; Start 05/03/17 at 10:15; Stop 05/07/17 at 16:44; Status DC Calcium Acetate 2668 mg 2,668 mg TID PO Last administered on 05/21/17 17:27; Start 05/03/17 at 09:00 Epoprostenol Sodium/Sodium Chloride (Flolan (30,000 Ng/ml) Neb/NS Inj) 100 ml @ 8 mls/hr Q8H NEB Last administered on 05/04/17 00:17; Start 05/03/17 at 09:00 ; Stop 05/04/17 at 14:14; Status DC Lidocaine HCl 50 ml 50 ml STK-MED ONCE .ROUTE ; Start 05/03/17 at 12:21; Stop at 12:22; Status DC Epoprostenol Sodium 40 ml/ Sodium Chloride 100 ml @ 8 mls/hr Q8H NEB Last administered on 05/06/17 06:04; Start 05/04/17 at 15:00; Stop 05/06/17 at 12:43 ; Status DC Calcium Gluconate 2 gm/Dextrose 120 ml @ 120 mls/hr ONCE ONCE IV Last administered on 05/04/17 20:00; Start 05/04/17 at 20:00; Stop 05/04/17 at 20:59 ; Status DC Cefepime HCl/ Sodium Chloride (Maxipime Inj/NS Inj) 100 ml @ 200 mls/hr Q24H IV Last administered on 05/08/17 01:36; Start 05/06/17 at 03:00; Stop at 23:00; Status DC Allopurinol (Zyloprim) 200 mg DAILY PO Last administered on 05/21/17 11:51; Start 05/06/17 at 09:00 Artificial Tears (Tears Naturale Opth Soln) 1 drop Q8H EACH EYE Last administered on 05/07/17 10:06; Start 05/05/17 at 18:00; Stop 05/07/17 at 12:11 ; Status DC Fentanyl Citrate (fentaNYL INJ) 100 mcg STK-MED ONCE IV ; Start 04/22/17 at 12: 00; Stop 05/06/17 at 12:46; Status DC Propofol (Diprivan 200 Mg/20 ml Inj) 200 mg STK-MED ONCE IV ; Start 04/22/17 at 12:00; Stop 05/06/17 at 12:46; Status DC Phenylephrine HCl (Neosynephrine/ NS 1000 Mcg/10ml Syr) 1,000 mcg STK-MED ONCE IV ; Start 04/22/17 at 12:00; Stop 05/06/17 at 12:47; Status DC Ondansetron HCl (Zofran Inj) 4 mg STK-MED ONCE IV PUSH ; Start 04/22/17 at 12:00 ; Stop 05/06/17 at 12:47; Status DC Pantoprazole Sodium (Protonix Inj) 40 mg DAILY IV PUSH Last administered on 11:50; Start 05/07/17 at 12:00 Artificial Tears 1 applic 1 applic Q8H EACH EYE Last administered on 05/19/17 10:00; Start 05/07/17 at 18:00 Sodium Chloride (NS 1000 ml Inj) 1,000 ml @ 0 mls/hr TITRATE PRN IV WITH DIALYSIS Last administered on 05/11/17 18:29; Start 05/07/17 at 18:00 Heparin Sodium (Porcine) 8000 units 8,000 units UNSCH PRN IV FLUSH WITH DIALYSIS; Start 05/07/17 at 18:00 Sodium Chloride 1,000 ml @ 200 mls/hr Q5H PRN IV WITH DIALYSIS; Start 05/07/17 at 18:00 Sodium Chloride (NS 250 ml Inj) 200 ml @ 0 mls/hr UNSCH PRN IV WITH DIALYSIS; Start 05/07/17 at 18:00 Mannitol (Mannitol Inj) 12.5 gm UNSCH PRN IV WITH DIALYSIS; Start 05/07/17 at 18:00 Albumin Human (Albumin 25% Inj) 25 gm UNSCH PRN IV WITH DIALYSIS; Start at 18:00 Sodium Chloride (NS Flush) 5 ml UNSCH PRN IV FLUSH WITH DIALYSIS; Start at 18:00 Heparin Sodium (Porcine) (Heparin Inj) Dwell Heparin to f... UNSCH PRN OTHER WITH DIALYSIS Last administered on 05/20/17 11:36; Start 05/07/17 at 18:00 Gentamicin Sulfate (Gentamicin (Dialysis) Inj) 10 mg UNSCH PRN OTHER WITH DIALYSIS Last administered on 05/20/17 11:36; Start 05/07/17 at 18:00 Gelatin (Gelfoam 12 Mm/7 Mm Top) 1 foam UNSCH PRN TOPICAL WITH DIALYSIS; Start 05/07/17 at 18:00 Ondansetron HCl (Zofran Inj) 4 mg UNSCH PRN IV NAUSEA OR VOMITING; Start at 18:00 Acetaminophen (Tylenol) 650 mg UNSCH X1 PRN PO WITH DIALYSIS Last administered on 05/08/17 10:07; Start 05/07/17 at 18:00; Stop 05/14/17 at 17:59; Status DC Diphenhydramine HCl (Benadryl) 25 mg UNSCH PRN PO WITH DIALYSIS; Start at 18:00 Nitroglycerin (Nitrostat Sl) 0.4 mg UNSCH PRN SL WITH DIALYSIS; Start 05/07/17 at 18:00 Clonidine (Catapres) 0.1 mg UNSCH PRN PO WITH DIALYSIS; Start 05/07/17 at 18:00 Polyethylene Glycol (Miralax) 17 gm DAILY PO Last administered on 05/10/17 07: 52; Start 05/08/17 at 09:00; Stop 05/13/17 at 17:16; Status DC Lactulose (Lactulose Liq) 30 ml BID PO Last administered on 05/10/17 07:51; Start 05/08/17 at 09:00; Stop 05/13/17 at 17:16; Status DC Bisacodyl (Dulcolax Supp) 10 mg DAILY PRN RECTAL CONSTIPATION; Start 05/08/17 at 08:15; Stop 05/08/17 at 08:16; Status DC Diatrizoate Meglum/ Diatrizoate Sod ( Gastroview Liq) 18 ml ONCE ONCE PO Last administered on 05/09/17 16:42; Start 05/09/17 at 14:15; Stop 05/09/17 at 14:16; Status DC Heparin Sodium (Porcine) 300 units 300 units NOW ONCE IV ; Start 05/09/17 at 18 :30; Stop 05/09/17 at 18:31; Status DC Potassium Chloride (KCl 20 Meq Premix Inj) 100 ml @ 50 mls/hr BOLUS ONCE IV Last administered on 05/10/17 13:31; Start 05/10/17 at 12:30; Stop 05/10/17 at 14:29; Status DC Sucralfate 1 gm 1 gm Q8HR PO Last administered on 05/13/17 04:46; Start at 14:00; Stop 05/13/17 at 13:59; Status DC Potassium Chloride (KCl 20 Meq Premix Inj) 100 ml @ 50 mls/hr ONCE ONCE IV Last administered on 05/11/17 08:54; Start 05/11/17 at 08:30; Stop 05/11/17 at 10:29; Status DC Metronidazole (Flagyl) 500 mg Q8HR PO Last administered on 05/22/17 06:04; Start 05/11/17 at 14:00; Stop 05/25/17 at 12:00 Morphine Sulfate 4 mg 4 mg NOW ONCE IV PUSH Last administered on 05/12/17 09: 58; Start 05/12/17 at 09:45; Stop 05/12/17 at 09:46; Status DC Potassium Chloride (KCl 40 Meq Premix Inj) 100 ml @ 25 mls/hr ONCE ONCE IV Last administered on 05/12/17 13:51; Start 05/12/17 at 13:45; Stop 05/12/17 at 17: 44; Status DC Vancomycin HCl (VANCOMYCIN for oral use only) 500 mg QID PO Last administered on 05/21/17 22:10; Start 05/13/17 at 13:00; Stop 05/25/17 at 23:00 Dronabinol (Marinol) 5 mg BID@11,16 PO Last administered on 05/21/17 17:27; Start 05/14/17 at 16:00 Heparin Sodium (Porcine) (*HEPARIN INJ Periprocedural ONLY) 10,000 units STK- MED ONCE .ROUTE Last administered on 05/15/17 15:50; Start 05/15/17 at 15:24; Stop 05/15/17 at 15:25; Status DC Sodium Chloride (NS Flush) UNSCH PRN IVF SEE PROTOCOL; Start 05/15/17 at 16:00 Heparin Sodium (Porcine) (Heparin Inj) UNSCH PRN IV FLUSH SEE PROTOCOL; Start 05/15/17 at 16:00 Iohexol (Omnipaque 350 Inj) 10 ml STK-MED ONCE IV Last administered on 15:50; Start 05/15/17 at 20:42; Stop 05/15/17 at 20:43; Status DC Potassium Chloride (KCl) 30 meq ONCE ONCE PO Last administered on 05/16/17 11: 06; Start 05/16/17 at 09:00; Stop 05/16/17 at 09:01; Status DC Dexamethasone (Decadron) 40 mg ONCE ONCE PO ; Start 05/16/17 at 13:00; Stop 05/16 at 13:01; Status DC Potassium Chloride (KCl) 30 meq ONCE ONCE PO Last administered on 05/17/17 08: 57; Start 05/17/17 at 07:45; Stop 05/17/17 at 07:46; Status DC Potassium Chloride (KCl) 20 meq ONCE ONCE PO Last administered on 05/17/17 15: 00; Start 05/17/17 at 13:00; Stop 05/17/17 at 13:01; Status DC Granisetron HCl 1 mg 1 mg ONCE ONCE IV PUSH Last administered on 05/18/17 17: 02; Start 05/18/17 at 16:30; Stop 05/18/17 at 16:31; Status DC Dexamethasone Sodium Phosphate/ Sodium Chloride (Decadron Inj/NS Inj) 55 ml @ 220 mls/hr ONCE ONCE IV Last administered on 05/18/17 17:02; Start 05/18/17 at 16:30; Stop 05/18/17 at 16:44; Status DC Doxorubicin HCl 91 mg 91 mg ONCE ONCE IV PUSH Last administered on 05/18/17 17 :35; Start 05/18/17 at 17:00; Stop 05/18/17 at 17:01; Status DC Vincristine Sulfate 2 mg/ Sodium Chloride 52 ml @ 312 mls/hr ONCE ONCE IV Last administered on 05/18/17 17:50; Start 05/18/17 at 17:30; Stop 05/18/17 at 17: 39; Status DC Cyclophosphamide/ Sodium Chloride (Cytoxan Inj/NS 500 ml Inj) 500 ml @ 500 mls/ hr ONCE ONCE IV Last administered on 05/18/17 18:08; Start 05/18/17 at 18:00; Stop 05/18/17 at 18:59; Status DC Prednisone 91 mg 91 mg HS PO Last administered on 05/21/17 22:10; Start at 21:00; Stop 05/22/17 at 21:01 Sodium Chloride (NS 250 ml Inj) 250 ml @ 0 mls/hr ONCE ONCE IV Last administered on 05/18/17 17:00; Start 05/18/17 at 17:00; Stop 05/18/17 at 17:01; Status DC Warfarin Sodium (Coumadin) 1 mg DAILY@16 PO Last administered on 05/20/17 17:37 ; Start 05/19/17 at 16:00; Stop 05/21/17 at 12:42; Status DC Patient Medication Teaching (Coumadin Booklet) 1 ONCE ONCE OTHER Last administered on 05/19/17 16:00; Start 05/19/17 at 16:00; Stop 05/19/17 at 16:01; Status DC Warfarin Sodium 1 mg 1 mg NOW ONCE PO Last administered on 05/19/17 19:40; Start 05/19/17 at 19:45; Stop 05/19/17 at 19:46; Status DC Sodium Chloride (NS 250 ml Inj) 250 ml @ 15 mls/hr ONCE ONCE IV ; Start at 10:00; Stop 05/21/17 at 02:39; Status DC Albuterol Sulfate (Ventolin Hfa Inh) 2 puff Q6HR INH ; Start 05/21/17 at 00:00 Warfarin Sodium (Coumadin) 2 mg DAILY@16 PO Last administered on 05/21/17 17: 27; Start 05/21/17 at 16:00 Epoetin Oleksandr (Epogen Inj) 10,000 units UNSCH PRN IV WITH DIALYSIS; Start at 18:30 A/P Assessment and Plan A/P Acute Hypoxic Respiratory Failure-resolved --stable on RA Acute Submassive Pulmonary Embolism Right Heart Dysfunction Global severe left ventricular systolic dysfunction Cardiogenic Shock-resolved -- 2d echo 05/02: EF 30-35%, RV dysfunction with dilation --Repeat ECHO limited study scheduled on 05/09-RV function appears to have normalized, question of interatrial shunt for which cardiology consulted-d/w Dr. Taveras, recommended that once off anticoagulation, would need to be on ASA and require f/u echo periodically for evaluation. Acute Kidney Injury Hypokalemia-improved -- likely secondary to cardiogenic shock -HD initiated. - Nephrology following, Dr. Haley --Left IJ vas catheter, on hemodialysis --Hemodialysis per nephrology Hyperphosphatemia protein calorie malnutrition- severe Ileus -continue Phoslo -started on diet;office coordinator receptionist following; recommendations noted- PEG was discussed with the patient which he declined- he states that his appetite is better now- will start another calorie count tomorrow. --evaluated by General surgery and GI . -Expanded bowel regimen MiraLAX, lactulose. Large Cell B-cell lymphoma Pulmonary Embolism anemia of chronic disease C. difficile colitis -- hematology/oncology following Dr. Connelly-chemo with [facility] regimen initiated. -- continue heparin drip. started on low dose coumadin- per hematology. -blood transfusion with HD today. --continue Flagyl and Vanco- plan for 14 days- evaluated by ID . continue PT. Prophylaxis: DVT: SCDs, heparin drip/coumadin Catalina Eller MD May 22, 2017 07:41
[2017-05-22 07:52] LABS: AUTOMATED NEUTROPHIL # 2.3 TH/MM3 (1.8-7.7); BASOPHIL % 0.3 % (0.0-2.0); HEMATOCRIT 21.4 % (39.0-51.0); HEMO FLAGS DIFF FINAL; LYMPH % 2.5 % (9.0-44.0); LYMPHOCYTE # 0.1 TH/MM3 (1.0-4.8); MEAN CELL VOLUME 87.3 FL (80.0-100.0); MEAN CORPUSCULAR HEMOGLOBIN 29.4 PG (27.0-34.0); MEAN CORPUSCULAR HGB CONC 33.7 % (32.0-36.0); MONO % 0.9 % (0.0-8.0); NEUT % 96.3 % (16.0-70.0); PLATELET COUNT 241 TH/MM3 (150-450); RED BLOOD COUNT 2.46 MIL/MM3 (4.50-5.90); RED CELL DISTRIBUTION WIDTH 18.2 % (11.6-17.2); WHITE BLOOD COUNT 2.4 TH/MM3 (4.0-11.0)
[2017-05-22 07:57] LABS: INTERNATIONAL NORMALIZED RATIO 1.1 RATIO; PROTHROMBIN TIME - PATIENT 12.7 SEC (9.8-11.6)
[2017-05-22] MEDS: CHLORHEXIDINE 0.12% (ORAL KIT) 15 ML CUP MT SCH ×2 (08:00→19:50)
[2017-05-22 08:16] LABS: FERRITIN 1205 NG/ML (26-388); LDH SERUM 340 U/L (87-241); TRANSFERRIN IRON PROFILE 129 MG/DL (200-360); URIC ACID 6.2 MG/DL (2.6-7.2)
[2017-05-22 08:34] LABS: APTT (PATIENT) 42.5 SEC (24.3-30.1)
[2017-05-22] MEDS: NIFEdipine 90 MG SUSTAINED RELEASE TAB PO SCH (09:00)
[2017-05-22] MEDS: CALCIUM ACETATE 667 MG CAP PO SCH ×3 (09:00→18:35)
[2017-05-22] MEDS: PANTOPRAZOLE SODIUM 40 MG VIAL IV PUSH SCH (09:00)
[2017-05-22] MEDS: DRONABINOL 5 MG CAP PO SCH ×2 (11:00→16:00)
[2017-05-22] MEDS: EPOETIN ALFA 10,000 UNITS/ML VIAL IV PRN (12:08)
[2017-05-22] MEDS: SODIUM CHLOR 0.9% 1000 ML IV PRN (12:08)
[2017-05-22] MEDS: HEPARIN SODIUM - IV 10,000 UNITS/10 ML VIAL OTHER PRN (12:09)
[2017-05-22] MEDS: GENTAMICIN SULFATE (DIALYSIS USE ONLY) 20 MG/2 ML VIAL OTHER PRN (12:09)
--- NOTE | 2017-05-22 14:12 | PD.ONC.PN ---
Subjective Subjective Remarks Afebrile overnight. Patient resting in bed. Just back from dialysis. No complaints. Objective Data Date Time Temp Pulse Resp B/P Pulse Ox O2 Delivery O2 Flow Rate FiO2 05/22/17 04:00 96.8 76 17 94/55 96 05/22/17 00:00 97.0 96 18 98/53 92 05/21/17 21:00 75 05/21/17 20:50 96 21 05/21/17 20:00 96.8 79 17 117/57 97 05/21/17 16:00 96.5 70 16 110/68 96 05/22/17 05/22/17 05/22/17 07:00 15:00 23:00 Intake Total 77 ml Output Total 290 ml 2500 ml Balance -213 ml -2500 ml Result Diagram: 05/22/17 0601 05/21/17 0530 Laboratory Results Laboratory Tests Test 05/22/17 06:01 White Blood Count 2.4 TH/MM3 Red Blood Count 2.46 MIL/MM3 Hemoglobin 7.2 GM/DL Hematocrit 21.4 % Mean Corpuscular Volume 87.3 FL Mean Corpuscular Hemoglobin 29.4 PG Mean Corpuscular Hemoglobin 33.7 % Concent Red Cell Distribution Width 18.2 % Platelet Count 241 TH/MM3 Mean Platelet Volume 7.3 FL Neutrophils (%) (Auto) 96.3 % Lymphocytes (%) (Auto) 2.5 % Monocytes (%) (Auto) 0.9 % Eosinophils (%) (Auto) 0.0 % Basophils (%) (Auto) 0.3 % Neutrophils # (Auto) 2.3 TH/MM3 Lymphocytes # (Auto) 0.1 TH/MM3 Monocytes # (Auto) 0.0 TH/MM3 Eosinophils # (Auto) 0.0 TH/MM3 Basophils # (Auto) 0.0 TH/MM3 CBC Comment DIFF FINAL Differential Comment Prothrombin Time 12.7 SEC Prothromb Time International 1.1 RATIO Ratio Activated Partial 42.5 SEC Thromboplast Time Uric Acid 6.2 MG/DL Phosphorus Level 4.7 MG/DL Iron Level 156 MCG/DL Total Iron Binding Capacity 181 MCG/DL Percent Iron Saturation 86.4 % Ferritin 1205 NG/ML Lactate Dehydrogenase 340 U/L Administered Medications Medications (Trade) Dose Ordered Sig/Shyla Route PRN Reason Start Time Stop Time Status Last Admin Dose Admin Sodium Chloride (NS Flush) 2 ml UNSCH PRN IV FLUSH FLUSH AFTER USING IV ACCESS 04/18/17 17:30 05/21/17 11:52 Hydralazine HCl (Apresoline Inj) 10 mg Q6HR PRN IV PUSH SBP>160, DBP>90 04/21/17 17:00 04/27/17 10:15 Nifedipine (Procardia Xl) 90 mg DAILY PO 04/28/17 09:00 05/21/17 09:00 Clonidine (Catapres) 0.1 mg Q6H PRN PO SBP>160, DBP>90 04/27/17 15:00 04/29/17 08:07 Ondansetron HCl (Zofran Inj) 4 mg Q6HR PRN IV PUSH NAUSEA OR VOMITING 04/30/17 11:30 05/07/17 10:06 Promethazine HCl (Phenergan Inj) 25 mg Q6H PRN IM NAUSEA OR VOMITING 04/30/17 11:30 05/01/17 13:27 Acetaminophen/ Hydrocodone Bitart ([place] 5-325 Mg) 1 tab Q6H PRN PO PAIN SCALE 1 TO 10 04/30/17 11:30 05/12/17 02:48 Chlorhexidine Gluconate 15 ml 15 ml BID@08,20 MT 05/02/17 20:00 05/20/17 20:00 Fentanyl Citrate 250 ml @ 0 mls/hr TITRATE IV 05/02/17 10:00 05/10/17 05:36 Propofol (Diprivan 1000 Mg/100ml Inj) 100 ml @ 0 mls/hr TITRATE IV 05/02/17 10:00 05/10/17 06:54 Miscellaneous Information Patient in critical care unit? Ass... [id number] .XX 05/02/17 17:15 05/02/17 17:30 Heparin Sodium/ Dextrose (Heparin-D5W Inj) 250 ml @ 0 mls/hr TITRATE IV 05/03/17 02:00 05/21/17 17:30 Calcium Acetate (Phoslo) 2,668 mg TID PO 05/03/17 09:00 05/21/17 17:27 Allopurinol (Zyloprim) 200 mg DAILY PO 05/06/17 09:00 05/21/17 11:51 Pantoprazole Sodium (Protonix Inj) 40 mg DAILY IV PUSH 05/07/17 12:00 05/21/17 11:50 Artificial Tears 1 applic 1 applic Q8H EACH EYE 05/07/17 18:00 05/19/17 10:00 Sodium Chloride (NS 1000 ml Inj) 1,000 ml @ 0 mls/hr TITRATE PRN IV WITH DIALYSIS 05/07/17 18:00 05/22/17 12:08 Heparin Sodium (Porcine) (Heparin Inj) Dwell Heparin to f... UNSCH PRN OTHER WITH DIALYSIS 05/07/17 18:00 05/22/17 12:09 Gentamicin Sulfate (Gentamicin (Dialysis) Inj) 10 mg UNSCH PRN OTHER WITH DIALYSIS 05/07/17 18:00 05/22/17 12:09 Metronidazole (Flagyl) 500 mg Q8HR PO 05/11/17 14:00 05/25/17 12:00 05/22/17 06:04 Vancomycin HCl (VANCOMYCIN for oral use only) 500 mg QID PO 05/13/17 13:00 05/25/17 23:00 05/21/17 22:10 Dronabinol (Marinol) 5 mg BID@11,16 PO 05/14/17 16:00 05/21/17 17:27 Prednisone (Deltasone) 91 mg HS PO 05/18/17 21:00 05/22/17 21:01 05/21/17 22:10 Warfarin Sodium (Coumadin) 2 mg DAILY@16 PO 05/21/17 16:00 05/21/17 17:27 Epoetin Oleksandr (Epogen Inj) 10,000 units UNSCH PRN IV WITH DIALYSIS 05/21/17 18:30 05/22/17 12:08 Objective Remarks GENERAL: chronically ill male upright in bed in [facility]. SKIN: Warm and dry. vas-cath, left neck. HEAD: Normocephalic. EYES: No injection or drainage. NECK: Supple, trachea midline. CARDIOVASCULAR: +S1/S2 RESPIRATORY: Breath sounds equal bilaterally. No accessory muscle use. GASTROINTESTINAL: Abdomen soft, non-tender, nondistended. EXTREMITIES: No cyanosis, or edema. NEUROLOGICAL: awake and alert, normal speech. moving all extremities. Assessment/Plan Problem List: (1) Non-Hodgkin lymphoma Status: Acute Plan: --Has aggressive triple hit lymphoma. --Received Rituxan x1. --Neck adenopathy relatively stable. --05/18-->[facility] chemotherapy (2) Pulmonary emboli Status: Acute Plan: --on heparin gtt-->coumadin --CTA showed large PE --s/p tpa therapy on 05.02. now on heparin gtt. (3) ALDO (acute kidney injury) Status: Acute Plan: Renal function has not recovered. Remains on HD. Minimal urine output. (4) Normocytic anemia Status: Acute Plan: --multifactorial due to chronic disease, renal failure --monitor and transfuse as needed (5) C. difficile colitis Status: Acute Plan: --on PO Vanco Assessment 47y/o male admitted with pancreatitis, found to have NHL. Plan 1. give 1 unit pRBC 2. monitor CBC, LDH, uric acid 3. increase coumadin to 3mg PO daily. Discharge: from an oncology standpoint the patient could be discharged once his INR is therapeutic and outpatient dialysis set up. can be seen in clinic for further chemotherapy. Attending Statement The exam, history, and the medical decision-making described in the above note were completed with the assistance of the mid-level provider. I reviewed and agree with the findings presented. I attest that I had a [id number] encounter with the patient on the same day, and personally performed and documented my assessment and findings in the medical record. Feeling better. Left axillary mass is soft, right neck mass smaller. Continue supportive care. F/u oncology clinic after d/c. Problem Qualifiers (1) Non-Hodgkin lymphoma: Brenda Platt May 22, 2017 14:12 Ruslan Connelly MD May 22, 2017 14:27
[2017-05-22] MEDS: ALLOPURINOL 100 MG TAB PO SCH (14:17)
[2017-05-22] MEDS: VANCOMYCIN 500 MG VIAL (FOR ORAL USE ONLY) PO SCH ×3 (14:18→19:54)
--- NOTE | 2017-05-22 15:29 | HHI.NPPN ---
Subjective History of Present Illness 47-year-old male with no known past medical history who came to the hospital with complaint of nausea, vomiting and abdominal pain on April 18. I was called to see the patient because of elevated BUN and creatinine. The patient had a creatinine of 1.3 on presentation which improved to 0.7 and 0.8, then started increasing for last few days. Additional Remarks Patient is alert, seen earlier during HD, no SOB. Objective Data Data 05/21/17 05/22/17 19:00 07:00 Intake Total 150 ml 390 ml Output Total 70 ml 390 ml Balance 80 ml 0 ml Intake Oral 150 ml IV Total 390 ml Output Urine Total 70 ml 390 ml # Voids 1 # Bowel Movements 1 Vital Signs Date Time Temp Pulse Resp B/P Pulse Ox O2 Delivery O2 Flow Rate FiO2 05/22/17 04:00 96.8 76 17 94/55 96 05/22/17 00:00 97.0 96 18 98/53 92 05/21/17 21:00 75 05/21/17 20:50 96 21 05/21/17 20:00 96.8 79 17 117/57 97 05/21/17 16:00 96.5 70 16 110/68 96 -: 05/22/17 0601 05/21/17 0530 Physical Exam General Appearance: Malnourished Eyes Eye Exam: Pupils Equal Throat Throat Exam: Oral Mucosa Marceline & Moist Pulmonary Resp Exam: Crackles, Rhonchi, Decreased Bases, Diminished Breath Sounds, Poor Inspiratory Effort Cardiology CV Exam: Regular, Normal Sinus Rhythm Gastrointestinal/Abdomen GI Exam: Soft, Non-Tender, Bowel Sounds Present, Distended Extremeties Extremities Exam: Trace Edema Neurologic Neuro Exam: Awake Assessment/Plan Assessment Summary: ALDO/Acute Renal Failure Problem List: (1) Non-Hodgkin lymphoma Plan: Hematology following, need for chemotherapy in the future. (2) Adenopathy (3) Pleural effusion (4) Shortness of breath (5) Pulmonary emboli Plan: on anticoagulation. (6) Acute pancreatitis (7) ALDO (acute kidney injury) Plan: He has become dialysis dependent. Plan Still no signs of renal recovery. Monitor renal function and urine output. Avoid nephrotoxins. Multiple medical problems, alcohol induced pancreatitis. Follow the urine out put and BMP. Urine out put is low. Iron stores adequate. Continue HD until see some improvement in the renal function. Problem Qualifiers (1) Non-Hodgkin lymphoma: (2) Acute pancreatitis: Qualified Code: K85.20 - Alcohol-induced acute pancreatitis, unspecified complication status Leonid Haley MD May 22, 2017 15:29
[2017-05-22] MEDS ORDERED: WARFARIN SOD 3 MG TAB PO SCH (16:00)
[2017-05-22] MEDS: predniSONE 20 MG TAB PO SCH (19:54)
[2017-05-23] VITALS (7 sets, daily range): BP systolic 104–129; BP diastolic 64–79; PULSE 69–87; RESP 12–16; TEMP 96.3–97.5; O2SAT 93–98
[2017-05-23] MEDS: ARTIFICIAL TEARS OPTH OINT 3.5 APPLIC/3.5 GM TUBO EACH EYE SCH ×4 (00:16→21:00)
[2017-05-23] MEDS: ALBUTEROL SULFATE 90 MCG/ACT HFA 18 GM INHALER INH SCH ×4 (02:59→20:54)
[2017-05-23] MEDS: metroNIDAZOLE 500 MG TAB PO SCH ×3 (05:04→20:58)
[2017-05-23 05:44] LABS: AUTOMATED NEUTROPHIL # 3.3 TH/MM3 (1.8-7.7); HEMATOCRIT 23.4 % (39.0-51.0); HEMO FLAGS DIFF FINAL; LYMPH % 1.1 % (9.0-44.0); MEAN CELL VOLUME 87.1 FL (80.0-100.0); MEAN CORPUSCULAR HEMOGLOBIN 30.4 PG (27.0-34.0); MEAN CORPUSCULAR HGB CONC 34.9 % (32.0-36.0); MONO % 0.3 % (0.0-8.0); NEUT % 98.6 % (16.0-70.0); PLATELET COUNT 195 TH/MM3 (150-450); RED BLOOD COUNT 2.69 MIL/MM3 (4.50-5.90); RED CELL DISTRIBUTION WIDTH 17.8 % (11.6-17.2); WHITE BLOOD COUNT 3.3 TH/MM3 (4.0-11.0)
[2017-05-23 05:50] LABS: INTERNATIONAL NORMALIZED RATIO 1.1 RATIO; PROTHROMBIN TIME - PATIENT 12.7 SEC (9.8-11.6)
[2017-05-23 05:51] LABS: APTT (PATIENT) 42.7 SEC (24.3-30.1)
--- NOTE | 2017-05-23 07:41 | HHI.PR ---
Subjective Remarks resting comfortably with no distress. no pain. no new complaints. Objective Vitals Vital Signs Date Time Temp Pulse Resp B/P Pulse Ox O2 Delivery O2 Flow Rate FiO2 05/23/17 04:00 97.5 72 16 105/65 97 05/23/17 00:00 97.5 87 16 104/64 93 05/22/17 21:24 95.9 77 20 120/76 97 05/22/17 21:00 73 05/22/17 20:00 96.4 82 17 115/69 97 05/22/17 18:48 96.8 76 18 123/77 97 05/22/17 18:25 97.5 76 18 121/77 96 05/22/17 16:00 97.8 86 18 115/76 99 05/22/17 16:00 77 05/22/17 12:00 97.5 90 18 103/62 99 I/O 05/22/17 05/22/17 05/22/17 05/23/17 05/23/17 05/23/17 07:00 15:00 23:00 07:00 15:00 23:00 Intake Total 77 ml 840 ml 589 ml Output Total 290 ml 2500 ml 400 ml 375 ml Balance -213 ml -2500 ml 440 ml 214 ml Intake Oral 840 ml 360 ml IV Total 77 ml 229 ml Output Urine Total 290 ml 400 ml 375 ml Hemodialysis 2500 ml Result Diagram: 05/23/17 0500 05/21/17 0530 Imaging Last Impressions Chest X-Ray 05/21/17 06 Signed Impressions: Service Date/Time: May 06:05 - CONCLUSION: Bibasilar opacities the majority represent effusion appreciated without posterior left lower lobe retrocardiac density consolidation atelectasis versus infiltrate there was underlying in the right medial base suggesting air fluid level the possibility of cavitary lesion with air-fluid level cannot be excluded. There is persistent mediastinal mass widening. Stanford Mcdonough MD Abdomen X-Ray 05/15/17 0600 Draft Impressions: Service Date/Time: Monday, May 15, 2017 04:29 - CONCLUSION: Findings of mild small bowel ileus. There has been no significant change when compared to the prior exam. Jadon Carroll MD Central Venous Line 05/15/17 0000 Signed Impressions: Service Date/Time: Monday, May 15, 2017 00:00 - CONCLUSION: Uncomplicated catheter removal. Bryon Calero Jr., MD Catheter Placement X-Ray 05/15/17 0000 Signed Impressions: Service Date/Time: Monday, May 15, 2017 15:13 - CONCLUSION: Mild narrowing involving the brachiocephalic vein near its junction with the SVC. This is not flow limiting. A left-sided vas catheter was placed. Bryon Calero Jr., MD Abdomen/Pelvis CT 05/09/17 0000 Signed Impressions: Service Date/Time: Tuesday, May 09, 2017 21:16 - CONCLUSION: 1. Diffusely distended loops of small bowel down to the cecum suggest ileus. 2. Evidence of mesenteric and retroperitoneal adenopathy. 3. Large bilateral pleural effusions , moderate amount of free fluid in the pelvis and mild ascites in the upper abdomen. 4. Abnormal appearance to the parenchyma of the right kidney with patchy areas of hyperdensity in a mosaic pattern. This of uncertain significance. The patient had iodinated contrast for a CT pulmonary angiogram 7 days ago; this could potentially represent residual parenchymal contrast which would be nonspecific, but raises the possibility of either obstruction or renal infarctions. Bryon Evans MD Renal Ultrasound 05/05/17 0000 Signed Impressions: Service Date/Time: Friday, May 05, 2017 20:06 - CONCLUSION: 1. Kidneys are borderline echogenic which can be seen with medical renal disease. 2. No evidence of hydronephrosis. 3. Abdominal ascites. 4. Multiple dilated bowel loops. 5. Bilateral pleural effusions. Tray Patel MD Head CT 05/03/17 0000 Signed Impressions: Service Date/Time: Wednesday, May 03, 2017 17:22 - CONCLUSION: No acute intracranial disease. No hemorrhage seen. Tray Patel MD CT Angiography 05/02/17 0000 Signed Impressions: Service Date/Time: Tuesday, May 02, 2017 11:10 - CONCLUSION: 1. There is pulmonary embolus in the right pulmonary artery, right upper lobe and lower lobe branches. 2. Resorption of previously seen gas in the left axilla with fluid collection at this site with postprocedural change and possibly postprocedural hemorrhage not significantly changed in size. 3. Interval development of right lung airspace process may represent postobstructive pneumonia and there is mucus within the trachea not present yesterday. 4. Right pleural effusion is smaller and left pleural effusion is larger. 5. No change in bulky adenopathy. Leonor Chavez MD Upper Extremity Ultrasound 04/30/17 0000 Signed Impressions: Service Date/Time: April 12:25 - CONCLUSION: There some superficial thrombosis of a vein in the forearm. The deep venous system is patent. Large fluid collection left axilla. Significant soft tissue edema throughout the upper arm. Rinku Hillman MD Thoracentesis Ultrasound 04/30/17 0000 Signed Impressions: Service Date/Time: April 12:14 - CONCLUSION: Uncomplicated ultrasound guided thoracentesis. Tray Patel MD Port Line Insertion 04/27/17 Signed Impressions: Service Date/Time: Thursday, April 27, 2017 14:56 - CONCLUSION: 1. Bulky bilateral lower cervical lymphadenopathy. 2. Uncomplicated ultrasound and fluoroscopic guided implanted central venous port catheter placement as described in detail above. An 8 [employer] Power port was placed. Liang Peralta MD Bone Biopsy CT 04/27/17 0000 Signed Impressions: Service Date/Time: Thursday, April 27, 2017 16:22 - CONCLUSION: 1. Uncomplicated CT guided bone marrow aspirate. 2. Uncomplicated CT guided bone marrow biopsy. Tray Patel MD Chest CT 04/25/17 0000 Signed Impressions: Service Date/Time: Wednesday, April 26, 2017 19:00 - CONCLUSION: The right pleural effusion is slightly larger on the left side has not changed. Extensive bulky adenopathy as before and malignancies such as lymphoma is suspected. Leonor Chavez MD Gall Bladder Ultrasound 04/22/17 0000 Signed Impressions: Service Date/Time: Saturday, April 22, 2017 07:35 - CONCLUSION: Small liver with focal abdomen only incompletely evaluated. Large right pleural effusion. effusion. Kirk Briceño MD FACR Abdomen CT 04/20/17 0000 Signed Impressions: Service Date/Time: Thursday, April 20, 2017 19:40 - CONCLUSION: Limited exam because of lack of intravenous contrast. Lymphoma is suspected. Pathological diagnosis could be obtained with ultrasound biopsy of the cervical, axillary or inguinal adenopathy. Kirk Briceño MD FACR Objective Remarks GENERAL: in no acute distress CARDIOVASCULAR: Regular rate and regular rhythm without murmurs, gallops, or rubs. RESPIRATORY: Clear to auscultation. Breath sounds equal bilaterally. No wheezes , rales, or rhonchi. GASTROINTESTINAL: Abdomen soft, non-tender, nondistended. Normal, active bowel sounds MUSCULOSKELETAL: Extremities without clubbing, cyanosis, or edema. NEURO: awake and alert Procedures 04/[address] excision biopsy 04/27- port placement 05/02-TPA 05/06-left IJ Vas-Cath placement endotracheal intubation Medications and IVs Current Medications Ondansetron HCl 4 mg 4 mg ONCE ONCE IVP Last administered on 04/18/17 17:38; Start 04/18/17 at 17:30; Stop 04/18/17 at 17:31; Status DC Sodium Chloride (NS 1000 ml Inj) 1,000 ml @ 1,000 mls/hr Q1H IV Last administered on 04/18/17 17:38; Start 04/18/17 at 17:16; Stop 04/18/17 at 18:15; Status DC Sodium Chloride 2 ml 2 ml UNSCH PRN IV FLUSH FLUSH AFTER USING IV ACCESS Last administered on 05/21/17 11:52; Start 04/18/17 at 17:30 Sodium Chloride 1,000 ml @ 1,000 mls/hr Q1H IV Last administered on 04/18/17 18:40; Start 04/18/17 at 18:37; Stop 04/18/17 at 19:36; Status DC Potassium Chloride (KCl 20 Meq Premix Inj) 100 ml @ 50 mls/hr Q2H IV Last administered on 04/18/17 22:12; Start 04/18/17 at 19:00; Stop 04/18/17 at 22:59; Status DC Ondansetron HCl (Zofran Inj) 4 mg Q6H PRN IVP NAUSEA OR VOMITING Last administered on 04/26/17 06:04; Start 04/18/17 at 19:30; Stop 04/26/17 at 13:02 ; Status DC Morphine Sulfate (Morphine Inj) 2 mg Q3H PRN IV Pain 3-5; if unable to take PO ; Start 04/18/17 at 19:30; Status Cancel Morphine Sulfate (Morphine Inj) 4 mg Q3H PRN IV Pain 6-10;if unable to take PO ; Start 04/18/17 at 19:30; Status Cancel Naloxone HCl (Narcan Inj) 0.4 mg UNSCH PRN IV SEE LABEL COMMENTS; Start at 19:30 Senna/Docusate Sodium (Porsha-Colace) 1 tab BID PO Last administered on 07:52; Start 04/18/17 at 21:00; Stop 05/13/17 at 17:16; Status DC Magnesium Hydroxide (Milk Of Magnesia Liq) 30 ml Q12H PRN PO MILD - MODERATE CONSTIPATION Last administered on 05/09/17 08:01; Start 04/18/17 at 19:30; Stop 05/13/17 at 17:16; Status DC Sennosides (Senokot) 17.2 mg Q12H PRN PO MODERATE - SEVERE CONSTIPATION; Start 04/18/17 at 19:30; Stop 05/13/17 at 17:16; Status DC Bisacodyl (Dulcolax Supp) 10 mg DAILY PRN RECTAL SEVERE CONSITIPATION; Start at 19:30; Stop 05/13/17 at 17:16; Status DC Lactulose 30 ml 30 ml DAILY PRN PO SEVERE CONSITIPATION; Start 04/18/17 at 19:30 ; Stop 05/13/17 at 17:16; Status DC Potassium Chloride/Sodium Chloride 1,000 ml @ 125 mls/hr Q8H IV ; Start at 21:00; Stop 04/18/17 at 21:00; Status DC Potassium Chloride/Sodium Chloride 1,000 ml @ 83 mls/hr Q12H3M IV Last administered on 04/23/17 01:19; Start 04/19/17 at 02:00; Stop 04/23/17 at 09:04 ; Status DC Sodium Chloride (NS 1000 ml Inj) 1,000 ml @ 125 mls/hr Q8H IV Last administered on 04/18/17 20:00; Start 04/18/17 at 20:00; Stop 04/19/17 at 16:01; Status DC Pneumococcal Polyvalent Vaccine 25 mcg 25 mcg ONCE ONCE IM Last administered on 04/19/17 11:20; Start 04/19/17 at 09:00; Stop 04/19/17 at 09:01; Status DC Ceftriaxone Sodium/Sodium Chloride (Rocephin Inj/NS Inj) 100 ml @ 200 mls/hr Q24H IV Last administered on 04/24/17 12:51; Start 04/19/17 at 13:00; Stop at 14:33; Status DC Heparin Sodium (Porcine) (Heparin Inj) 5,000 units Q8HR SQ Last administered on 05/02/17 12:46; Start 04/19/17 at 14:00; Stop 05/19/17 at 10:23; Status DC Azithromycin (Zithromax) 500 mg Q24H PO Last administered on 04/24/17 12:51; Start 04/19/17 at 13:00; Stop 04/24/17 at 14:33; Status DC Clonidine (Catapres) 0.1 mg ONCE ONCE PO Last administered on 04/20/17 22:16 ; Start 04/20/17 at 21:45; Stop 04/20/17 at 21:46; Status DC Nifedipine (Procardia Xl) 30 mg DAILY PO Last administered on 04/25/17 09:42; Start 04/21/17 at 17:00; Stop 04/25/17 at 13:12; Status DC Hydralazine HCl 10 mg 10 mg Q6HR PRN IV PUSH SBP>160, DBP>90 Last administered on 04/27/17 10:15; Start 04/21/17 at 17:00 Cefazolin Sodium/ Sodium Chloride (Ancef Inj/NS Inj) 100 ml @ 200 mls/hr TELECOMMUNICATIONS MANAGER IV ; Start 04/21/17 at 21:30; Stop 04/24/17 at 21:29; Status DC Midazolam HCl (Versed Inj) 2 mg STK-MED ONCE .ROUTE Last administered on 09:02; Start 04/22/17 at 09:02; Stop 04/22/17 at 09:03; Status DC Bupivacaine HCl/ Epinephrine Bitart (Sensorcaine-Epi 0.5% 50 ml Inj) 50 ml STK- MED ONCE INFIL ; Start 04/22/17 at 09:25; Stop 04/22/17 at 09:26; Status Cancel Albuterol Sulfate (*ALBUTEROL NEB PERIprocedure ONLY) 2.5 mg STK-MED ONCE NEB Last administered on 04/22/17 10:06; Start 04/22/17 at 10:06; Stop 04/22/17 at 10:07; Status DC Fentanyl Citrate (fentaNYL INJ) 200 mcg STK-MED ONCE .ROUTE ; Start 04/22/17 at 10:10; Stop 04/22/17 at 10:11; Status DC Bupivacaine HCl (Marcaine Pf 0.5% Inj) 30 ml STK-MED ONCE INFIL Last administered on 04/22/17 09:25; Start 04/22/17 at 09:25; Stop 04/22/17 at 10:49 ; Status DC Miscellaneous Information ALL NURSING DEPARTME... UNSCH PRN .XX SEE LABEL COMMENTS; Start 04/22/17 at 10:01; Stop 04/23/17 at 10:00; Status DC Dextrose/Sodium Chloride 1,000 ml @ 60 mls/hr [id number] IV Last administered on 04/24/17 06:40; Start 04/23/17 at 12:45; Stop 04/24/17 at 14:36; Status DC Potassium Chloride/Dextrose/ Sodium Chloride (KCl Inj/D5W-NS 1000 ml Inj) 1,015 ml @ 70 mls/hr [id number] IV Last administered on 04/25/17 05:34; Start at 16:00; Stop 04/25/17 at 13:12; Status DC Promethazine HCl (Phenergan Inj) 25 mg ONCE ONCE IM Last administered on 11:55; Start 04/25/17 at 08:00; Stop 04/25/17 at 08:01; Status DC Nifedipine 60 mg 60 mg DAILY PO Last administered on 04/27/17 10:02; Start at 09:00; Stop 04/27/17 at 14:48; Status DC Potassium Chloride/Dextrose/ Sodium Chloride (KCl Inj/D5W-NS 1000 ml Inj) 1,015 ml @ 60 mls/hr [id number] IV Last administered on 04/27/17 18:18; Start at 15:00; Stop 04/28/17 at 11:49; Status DC Promethazine HCl (Phenergan Inj) 12.5 mg Q8H PRN IM PERSISTENT NAUSEA Last administered on 04/30/17 04:34; Start 04/26/17 at 13:15; Stop 04/30/17 at 11:28 ; Status DC Allopurinol 300 mg 300 mg DAILY PO Last administered on 05/05/17 08:12; Start 04/27/17 at 09:00; Stop 05/05/17 at 12:10; Status DC Vancomycin HCl 1000 mg/Sodium Chloride 250 ml @ 250 mls/hr TELECOMMUNICATIONS MANAGER IV Last administered on 04/27/17 13:49; Start 04/27/17 at 10:00; Stop 04/30/17 at 09:59 ; Status DC Cefazolin Sodium/ Dextrose (Ancef 2 Gm Premix) 50 ml @ 100 mls/hr TELECOMMUNICATIONS MANAGER IV Last administered on 04/27/17 15:42; Start 04/27/17 at 10:00; Stop 04/30/17 at 09:59; Status DC Nifedipine (Procardia Xl) 90 mg DAILY PO Last administered on 05/22/17 09:00; Start 04/28/17 at 09:00 Clonidine (Catapres) 0.1 mg Q12HR PO ; Start 04/27/17 at 21:00; Status UNV Clonidine (Catapres) 0.1 mg Q6H PRN PO SBP>160, DBP>90 Last administered on 08:07; Start 04/27/17 at 15:00 Heparin Sodium (Porcine) (*HEPARIN CENTRAL FLUSH PERIprocedural ONLY) 500 units STK-MED ONCE IV FLUSH Last administered on 04/27/17 14:51; Start 04/27/17 at 14:51; Stop 04/27/17 at 14:52; Status DC Lidocaine/ Epinephrine (Xylocaine-Epi 1%-1:100,000 Inj) 20 ml STK-MED ONCE .ROUTE Last administered on 04/27/17 14:51; Start 04/27/17 at 14:51; Stop at 14:52; Status DC Midazolam HCl (Versed Inj) 5 mg STK-MED ONCE .ROUTE Last administered on 14:52; Start 04/27/17 at 14:52; Stop 04/27/17 at 14:53; Status DC Fentanyl Citrate 250 mcg 250 mcg STK-MED ONCE .ROUTE Last administered on 14:53; Start 04/27/17 at 14:53; Stop 04/27/17 at 14:54; Status DC Sodium Chloride (NS 1000 ml Inj) 1,000 ml @ 100 mls/hr Q10H IV Last administered on 04/29/17 17:55; Start 04/29/17 at 15:00; Stop 04/30/17 at 00:59 ; Status DC Acetaminophen (Tylenol) 650 mg ONCE ONCE PO Last administered on 04/30/17 16: 44; Start 04/30/17 at 13:00; Stop 04/30/17 at 13:01; Status DC Diphenhydramine HCl 50 mg 50 mg ONCE ONCE PO Last administered on 04/30/17 16 :43; Start 04/30/17 at 13:00; Stop 04/30/17 at 13:01; Status DC Rituximab/Sodium Chloride (Rituxan Inj/NS 500 ml Inj) 571.625 ml @ 0 mls/hr ONCE ONCE IV Last administered on 05/01/17 13:15; Start 04/30/17 at 14:00; Stop 04/30/17 at 14:01; Status DC Prednisone 115 mg 115 mg Q12H PO ; Start 04/30/17 at 13:00; Stop 05/01/17 at 11: 21; Status DC Dexamethasone Sodium Phosphate 20 mg/Granisetron HCl 1 mg/Sodium Chloride 56 ml @ 224 mls/hr Q24H IV ; Start 04/30/17 at 15:00; Stop 05/01/17 at 11:26; Status DC Potassium Chloride 100 ml @ 50 mls/hr BOLUS ONCE IV Last administered on 04/30 10:20; Start 04/30/17 at 10:00; Stop 04/30/17 at 11:59; Status DC Etoposide 95.5 mg/ Doxorubicin HCl 19.1 mg/ Vincristine Sulfate 0.764 mg/ Sodium Chloride 515.089 ml @ 21.462 mls/hr Q24H IV ; Start 04/30/17 at 15:00; Stop 05/18/17 at 13:46; Status DC Cyclophosphamide/ Sodium Chloride (Cytoxan Inj/NS 500 ml Inj) 500 ml @ 500 mls/ hr ONCE ONCE IV ; Start 05/04/17 at 14:00; Stop 05/04/17 at 14:59; Status DC Ondansetron HCl (Zofran Inj) 4 mg Q6HR PRN IV PUSH NAUSEA OR VOMITING Last administered on 05/07/17 10:06; Start 04/30/17 at 11:30 Promethazine HCl (Phenergan Inj) 25 mg Q6H PRN IM NAUSEA OR VOMITING Last administered on 05/01/17 13:27; Start 04/30/17 at 11:30 Acetaminophen/ Hydrocodone Bitart ([place] 5-325 Mg) 1 tab Q6H PRN PO PAIN SCALE 1 TO 10 Last administered on 05/12/17 02:48; Start 04/30/17 at 11:30 Albuterol/ Ipratropium (Duoneb Neb) 1 ampule ONCE ONCE NEB Last administered on 04/30/17 20:16; Start 04/30/17 at 19:45; Stop 04/30/17 at 20:11; Status DC Albuterol/ Ipratropium (Duoneb Neb) 1 ampule Q2HR NEB PRN NEB sob, wheeze; Start 04/30/17 at 20:45; Stop 05/02/17 at 10:14; Status DC Morphine Sulfate (Morphine Inj) 2 mg ONCE ONCE IV PUSH Last administered on 23:36; Start 04/30/17 at 23:30; Stop 04/30/17 at 23:31; Status DC Furosemide (Lasix Inj) 10 mg ONCE ONCE IV PUSH Last administered on 05/01/17 01:01; Start 05/01/17 at 00:00; Stop 05/01/17 at 00:01; Status DC Furosemide (Lasix Inj) 20 mg ONCE ONCE IV PUSH Last administered on 05/01/17 09:09; Start 05/01/17 at 07:45; Stop 05/01/17 at 07:52; Status DC Acetaminophen (Tylenol) 650 mg NOW ONCE PO Last administered on 05/01/17 10: 51; Start 05/01/17 at 10:45; Stop 05/01/17 at 10:46; Status DC Diphenhydramine HCl 50 mg 50 mg NOW ONCE PO Last administered on 05/01/17 10: 51; Start 05/01/17 at 10:45; Stop 05/01/17 at 10:46; Status DC Rituximab/Sodium Chloride (Rituxan Inj/NS 500 ml Inj) 571.625 ml @ 0 mls/hr ONCE ONCE IV ; Start 05/01/17 at 12:00; Stop 05/01/17 at 12:01; Status DC Acetaminophen (Tylenol) 650 mg ONCE ONCE PO ; Start 05/01/17 at 11:30; Stop at 11:31; Status DC Diphenhydramine HCl (Benadryl) 50 mg ONCE ONCE PO ; Start 05/01/17 at 11:30; Stop 05/01/17 at 11:31; Status DC Prednisone 115 mg 115 mg Q12HR PO Last administered on 05/02/17 20:08; Start 05/01/17 at 11:00; Stop 05/05/17 at 21:01; Status DC Dexamethasone Sodium Phosphate/ Granisetron HCl/ Sodium Chloride (Decadron Inj/ Kytril Inj/NS Inj) 56 ml @ 224 mls/hr Q24H IV ; Start 05/01/17 at 11:30; Stop 05/06/17 at 11:44; Status DC Metoclopramide HCl (Reglan Inj) 10 mg Q8HR IV PUSH Last administered on 04:59; Start 05/01/17 at 15:30; Stop 05/09/17 at 19:03; Status DC Pantoprazole Sodium (Protonix) 40 mg DAILY PO Last administered on 05/06/17 08 :17; Start 05/01/17 at 16:00; Stop 05/07/17 at 11:49; Status DC Furosemide (Lasix Inj) 20 mg ONCE ONCE IV PUSH Last administered on 05/01/17 16:14; Start 05/01/17 at 15:30; Stop 05/01/17 at 15:31; Status DC Albuterol/ Ipratropium (Duoneb Neb) 1 ampule BID NEB INH Last administered on 05/02/17 07:47; Start 05/01/17 at 20:00; Stop 05/02/17 at 10:18; Status DC Furosemide (Lasix Inj) 20 mg STAT ONCE IV PUSH Last administered on 05/02/17 08:40; Start 05/02/17 at 08:30; Stop 05/02/17 at 08:37; Status DC Etomidate (Amidate Inj) 20 mg STK-MED ONCE .ROUTE Last administered on 12:48; Start 05/02/17 at 09:23; Stop 05/02/17 at 09:24; Status DC Dextrose (D50w (Vial) Inj) 25 ml UNSCH PRN IV PUSH HYPOGLYCEMIA-SEE COMMENTS; Start 05/02/17 at 10:00; Stop 05/16/17 at 08:09; Status DC Insulin Human Regular (NovoLIN R SUPPLEMENTAL SCALE) 1 Q6HR SQ Last administered on 05/04/17 18:00; Start 05/02/17 at 12:00; Stop 05/16/17 at 08:09 ; Status DC Chlorhexidine Gluconate (Peridex 0.12% Liq) 15 ml BID@08,20 MT Last administered on 05/20/17 20:00; Start 05/02/17 at 20:00 Magnesium Oxide 800 mg 800 mg UNSCH PRN PO For Magnesium 1.2 - 1.6 mg/dL; Start 05/02/17 at 10:00; Stop 05/03/17 at 13:51; Status DC Magnesium Sulfate 4 gm/Sodium Chloride 100 ml @ 50 mls/hr UNSCH PRN IV For Magnesium 0.9 - 1.1 mg/dL; Start 05/02/17 at 10:00; Stop 05/03/17 at 13:51; Status DC Magnesium Sulfate 2 gm/Sodium Chloride 100 ml @ 50 mls/hr UNSCH PRN IV For Magnesium 1.2 - 1.6 mg/dL; Start 05/02/17 at 10:00; Stop 05/03/17 at 13:51; Status DC Potassium Chloride 100 ml @ 50 mls/hr Q2H PRN IV For Potassium 2.8 - 3.2 mEq/L ; Start 05/02/17 at 10:00; Stop 05/03/17 at 13:51; Status DC Potassium Chloride 100 ml @ 50 mls/hr Q2H PRN IV For Potassium 3.3 - 3.5 mEq/L ; Start 05/02/17 at 10:00; Stop 05/03/17 at 13:51; Status DC Potassium Chloride 100 ml @ 50 mls/hr Q2H PRN IV For Potassium 2.8 - 3.2 mEq/L ; Start 05/02/17 at 10:00; Stop 05/03/17 at 13:51; Status DC Potassium Chloride (KCl 40 Meq Premix Inj) 100 ml @ 25 mls/hr UNSCH PRN IV For Potassium 3.3 - 3.5 mEq/L; Start 05/02/17 at 10:00; Stop 05/03/17 at 13:51; Status DC Potassium Phosphate (K-Phos) 2,000 mg Q4H PRN PO For Phosphorus < 2.5 mg/dL; Start 05/02/17 at 10:00; Stop 05/03/17 at 13:51; Status DC Potassium Phosphate 2000 mg 2,000 mg UNSCH PRN PO/TUBE SEE LABEL COMMENTS; Start 05/02/17 at 10:00; Stop 05/03/17 at 13:51; Status DC Potassium Phosphate 30 mmol/ Sodium Chloride 260 ml @ 42 mls/hr UNSCH PRN IV SEE LABEL COMMENTS; Start 05/02/17 at 10:00; Stop 05/03/17 at 13:52; Status DC Sodium Phosphate/ Sodium Chloride (Sodium Phosphate Inj/NS 250 ml Inj) 250 ml @ 42 mls/hr UNSCH PRN IV For Phosphorus < 2.5 mg/dL; Start 05/02/17 at 10:00; Stop 05/03/17 at 13:52; Status DC Albuterol/ Ipratropium (Duoneb Neb) 1 ampule Q6HR NEB INH Last administered on 05/06/17 03:23; Start 05/02/17 at 10:00; Stop 05/06/17 at 10:00; Status DC Albuterol/ Ipratropium 1 ampule 1 ampule Q2HR NEB PRN INH WHEEZING Last administered on 05/08/17 08:08; Start 05/02/17 at 10:00 Fentanyl Citrate 250 ml @ 0 mls/hr TITRATE IV Last administered on 05/10/17 05 :36; Start 05/02/17 at 10:00 Propofol (Diprivan 1000 Mg/100ml Inj) 100 ml @ 0 mls/hr TITRATE IV Last administered on 05/10/17 06:54; Start 05/02/17 at 10:00 Iohexol 75 ml 75 ml STK-MED ONCE IV Last administered on 7/22/17at 11:31; Start 05/02/17 at 11:31; Stop 05/02/17 at 11:32; Status DC Cefepime HCl 2000 mg/Sodium Chloride 100 ml @ 200 mls/hr Q12H IV Last administered on 05/05/17 02:43; Start 05/02/17 at 15:00; Stop 05/05/17 at 11:53 ; Status DC Vancomycin HCl/ Sodium Chloride (Vancomycin Inj/ NS 250 ml Inj) 250 ml @ 250 mls/hr ONCE ONCE IV Last administered on 05/02/17 16:14; Start 05/02/17 at 15 :00; Stop 05/02/17 at 15:59; Status DC Heparin Sodium (Porcine) (Heparin Inj) 5,000 units ONCE ONCE IV Last administered on 05/02/17 15:35; Start 05/02/17 at 16:00; Stop 05/02/17 at 16:01 ; Status DC Miscellaneous Information Patient in critical care unit? Ass... [id number] .XX Last administered on 05/02/17 17:30; Start 05/02/17 at 17:15 Chlorhexidine Gluconate (Chlorhexidine 2% Cloth) 3 pack DAILY@04 TOPICAL Last administered on 05/07/17 03:45; Start 05/03/17 at 04:00; Stop 05/07/17 at 04:01 ; Status DC Chlorhexidine Gluconate 3 pack 3 pack UNSCH PRN TOPICAL HYGIENIC CARE; Start at 17:15; Stop 05/07/17 at 17:08; Status DC Alteplase, Recombinant/ Syringe / Bag (Activase Drip/ Syringe/Bag) 49.9999 ml @ 50 mls/hr ONCE ONCE IV Last administered on 05/02/17 19:58; Start 05/02/17 at 19:15; Stop 05/02/17 at 20:14; Status DC Sodium Chloride (NS Inj) 30 ml ONCE ONCE IVF Last administered on 05/02/17 19 :15; Start 05/02/17 at 19:15; Stop 05/02/17 at 19:28; Status DC Miscellaneous Medication Thrombolysis plan for submass... ONCE ONCE OTHER Last administered on 05/02/17 19:15; Start 05/02/17 at 19:15; Stop 05/02/17 at 19:28; Status DC Heparin Sodium/ Dextrose 250 ml @ 0 mls/hr TITRATE IV Last administered on 05/21 17:30; Start 05/03/17 at 02:00 Epinephrine HCl/ Dextrose (Adrenalin (1:1000) Inj/D5W Inj) 250 ml @ 30 mls/hr TITRATE IV Last administered on 05/04/17 09:43; Start 05/03/17 at 10:15; Stop 05/07/17 at 16:44; Status DC Calcium Acetate 2668 mg 2,668 mg TID PO Last administered on 05/22/17 18:35; Start 05/03/17 at 09:00 Epoprostenol Sodium/Sodium Chloride (Flolan (30,000 Ng/ml) Neb/NS Inj) 100 ml @ 8 mls/hr Q8H NEB Last administered on 05/04/17 00:17; Start 05/03/17 at 09:00 ; Stop 05/04/17 at 14:14; Status DC Lidocaine HCl 50 ml 50 ml STK-MED ONCE .ROUTE ; Start 05/03/17 at 12:21; Stop at 12:22; Status DC Epoprostenol Sodium 40 ml/ Sodium Chloride 100 ml @ 8 mls/hr Q8H NEB Last administered on 05/06/17 06:04; Start 05/04/17 at 15:00; Stop 05/06/17 at 12:43 ; Status DC Calcium Gluconate 2 gm/Dextrose 120 ml @ 120 mls/hr ONCE ONCE IV Last administered on 05/04/17 20:00; Start 05/04/17 at 20:00; Stop 05/04/17 at 20:59 ; Status DC Cefepime HCl/ Sodium Chloride (Maxipime Inj/NS Inj) 100 ml @ 200 mls/hr Q24H IV Last administered on 05/08/17 01:36; Start 05/06/17 at 03:00; Stop at 23:00; Status DC Allopurinol (Zyloprim) 200 mg DAILY PO Last administered on 05/22/17 14:17; Start 05/06/17 at 09:00 Artificial Tears (Tears Naturale Opth Soln) 1 drop Q8H EACH EYE Last administered on 05/07/17 10:06; Start 05/05/17 at 18:00; Stop 05/07/17 at 12:11 ; Status DC Fentanyl Citrate (fentaNYL INJ) 100 mcg STK-MED ONCE IV ; Start 04/22/17 at 12: 00; Stop 05/06/17 at 12:46; Status DC Propofol (Diprivan 200 Mg/20 ml Inj) 200 mg STK-MED ONCE IV ; Start 04/22/17 at 12:00; Stop 05/06/17 at 12:46; Status DC Phenylephrine HCl (Neosynephrine/ NS 1000 Mcg/10ml Syr) 1,000 mcg STK-MED ONCE IV ; Start 04/22/17 at 12:00; Stop 05/06/17 at 12:47; Status DC Ondansetron HCl (Zofran Inj) 4 mg STK-MED ONCE IV PUSH ; Start 04/22/17 at 12:00 ; Stop 05/06/17 at 12:47; Status DC Pantoprazole Sodium (Protonix Inj) 40 mg DAILY IV PUSH Last administered on 11:50; Start 05/07/17 at 12:00 Artificial Tears 1 applic 1 applic Q8H EACH EYE Last administered on 05/19/17 10:00; Start 05/07/17 at 18:00 Sodium Chloride (NS 1000 ml Inj) 1,000 ml @ 0 mls/hr TITRATE PRN IV WITH DIALYSIS Last administered on 05/22/17 12:08; Start 05/07/17 at 18:00 Heparin Sodium (Porcine) 8000 units 8,000 units UNSCH PRN IV FLUSH WITH DIALYSIS; Start 05/07/17 at 18:00 Sodium Chloride 1,000 ml @ 200 mls/hr Q5H PRN IV WITH DIALYSIS; Start 05/07/17 at 18:00 Sodium Chloride (NS 250 ml Inj) 200 ml @ 0 mls/hr UNSCH PRN IV WITH DIALYSIS; Start 05/07/17 at 18:00 Mannitol (Mannitol Inj) 12.5 gm UNSCH PRN IV WITH DIALYSIS; Start 05/07/17 at 18:00 Albumin Human (Albumin 25% Inj) 25 gm UNSCH PRN IV WITH DIALYSIS; Start at 18:00 Sodium Chloride (NS Flush) 5 ml UNSCH PRN IV FLUSH WITH DIALYSIS; Start at 18:00 Heparin Sodium (Porcine) (Heparin Inj) Dwell Heparin to f... UNSCH PRN OTHER WITH DIALYSIS Last administered on 05/22/17 12:09; Start 05/07/17 at 18:00 Gentamicin Sulfate (Gentamicin (Dialysis) Inj) 10 mg UNSCH PRN OTHER WITH DIALYSIS Last administered on 05/22/17 12:09; Start 05/07/17 at 18:00 Gelatin (Gelfoam 12 Mm/7 Mm Top) 1 foam UNSCH PRN TOPICAL WITH DIALYSIS; Start 05/07/17 at 18:00 Ondansetron HCl (Zofran Inj) 4 mg UNSCH PRN IV NAUSEA OR VOMITING; Start at 18:00 Acetaminophen (Tylenol) 650 mg UNSCH X1 PRN PO WITH DIALYSIS Last administered on 05/08/17 10:07; Start 05/07/17 at 18:00; Stop 05/14/17 at 17:59; Status DC Diphenhydramine HCl (Benadryl) 25 mg UNSCH PRN PO WITH DIALYSIS; Start at 18:00 Nitroglycerin (Nitrostat Sl) 0.4 mg UNSCH PRN SL WITH DIALYSIS; Start 05/07/17 at 18:00 Clonidine (Catapres) 0.1 mg UNSCH PRN PO WITH DIALYSIS; Start 05/07/17 at 18:00 Polyethylene Glycol (Miralax) 17 gm DAILY PO Last administered on 05/10/17 07: 52; Start 05/08/17 at 09:00; Stop 05/13/17 at 17:16; Status DC Lactulose (Lactulose Liq) 30 ml BID PO Last administered on 05/10/17 07:51; Start 05/08/17 at 09:00; Stop 05/13/17 at 17:16; Status DC Bisacodyl (Dulcolax Supp) 10 mg DAILY PRN RECTAL CONSTIPATION; Start 05/08/17 at 08:15; Stop 05/08/17 at 08:16; Status DC Diatrizoate Meglum/ Diatrizoate Sod ( Gastroview Liq) 18 ml ONCE ONCE PO Last administered on 05/09/17 16:42; Start 05/09/17 at 14:15; Stop 05/09/17 at 14:16; Status DC Heparin Sodium (Porcine) 300 units 300 units NOW ONCE IV ; Start 05/09/17 at 18 :30; Stop 05/09/17 at 18:31; Status DC Potassium Chloride (KCl 20 Meq Premix Inj) 100 ml @ 50 mls/hr BOLUS ONCE IV Last administered on 05/10/17 13:31; Start 05/10/17 at 12:30; Stop 05/10/17 at 14:29; Status DC Sucralfate 1 gm 1 gm Q8HR PO Last administered on 05/13/17 04:46; Start at 14:00; Stop 05/13/17 at 13:59; Status DC Potassium Chloride (KCl 20 Meq Premix Inj) 100 ml @ 50 mls/hr ONCE ONCE IV Last administered on 05/11/17 08:54; Start 05/11/17 at 08:30; Stop 05/11/17 at 10:29; Status DC Metronidazole (Flagyl) 500 mg Q8HR PO Last administered on 05/23/17 05:04; Start 05/11/17 at 14:00; Stop 05/25/17 at 12:00 Morphine Sulfate 4 mg 4 mg NOW ONCE IV PUSH Last administered on 05/12/17 09: 58; Start 05/12/17 at 09:45; Stop 05/12/17 at 09:46; Status DC Potassium Chloride (KCl 40 Meq Premix Inj) 100 ml @ 25 mls/hr ONCE ONCE IV Last administered on 05/12/17 13:51; Start 05/12/17 at 13:45; Stop 05/12/17 at 17: 44; Status DC Vancomycin HCl (VANCOMYCIN for oral use only) 500 mg QID PO Last administered on 05/22/17 19:54; Start 05/13/17 at 13:00; Stop 05/25/17 at 23:00 Dronabinol (Marinol) 5 mg BID@11,16 PO Last administered on 05/21/17 17:27; Start 05/14/17 at 16:00 Heparin Sodium (Porcine) (*HEPARIN INJ Periprocedural ONLY) 10,000 units STK- MED ONCE .ROUTE Last administered on 05/15/17 15:50; Start 05/15/17 at 15:24; Stop 05/15/17 at 15:25; Status DC Sodium Chloride (NS Flush) UNSCH PRN IVF SEE PROTOCOL; Start 05/15/17 at 16:00 Heparin Sodium (Porcine) (Heparin Inj) UNSCH PRN IV FLUSH SEE PROTOCOL; Start 05/15/17 at 16:00 Iohexol (Omnipaque 350 Inj) 10 ml STK-MED ONCE IV Last administered on 15:50; Start 05/15/17 at 20:42; Stop 05/15/17 at 20:43; Status DC Potassium Chloride (KCl) 30 meq ONCE ONCE PO Last administered on 05/16/17 11: 06; Start 05/16/17 at 09:00; Stop 05/16/17 at 09:01; Status DC Dexamethasone (Decadron) 40 mg ONCE ONCE PO ; Start 05/16/17 at 13:00; Stop 05/16 at 13:01; Status DC Potassium Chloride (KCl) 30 meq ONCE ONCE PO Last administered on 05/17/17 08: 57; Start 05/17/17 at 07:45; Stop 05/17/17 at 07:46; Status DC Potassium Chloride (KCl) 20 meq ONCE ONCE PO Last administered on 05/17/17 15: 00; Start 05/17/17 at 13:00; Stop 05/17/17 at 13:01; Status DC Granisetron HCl 1 mg 1 mg ONCE ONCE IV PUSH Last administered on 05/18/17 17: 02; Start 05/18/17 at 16:30; Stop 05/18/17 at 16:31; Status DC Dexamethasone Sodium Phosphate/ Sodium Chloride (Decadron Inj/NS Inj) 55 ml @ 220 mls/hr ONCE ONCE IV Last administered on 05/18/17 17:02; Start 05/18/17 at 16:30; Stop 05/18/17 at 16:44; Status DC Doxorubicin HCl 91 mg 91 mg ONCE ONCE IV PUSH Last administered on 05/18/17 17 :35; Start 05/18/17 at 17:00; Stop 05/18/17 at 17:01; Status DC Vincristine Sulfate 2 mg/ Sodium Chloride 52 ml @ 312 mls/hr ONCE ONCE IV Last administered on 05/18/17 17:50; Start 05/18/17 at 17:30; Stop 05/18/17 at 17: 39; Status DC Cyclophosphamide/ Sodium Chloride (Cytoxan Inj/NS 500 ml Inj) 500 ml @ 500 mls/ hr ONCE ONCE IV Last administered on 05/18/17 18:08; Start 05/18/17 at 18:00; Stop 05/18/17 at 18:59; Status DC Prednisone 91 mg 91 mg HS PO Last administered on 05/22/17 19:54; Start at 21:00; Stop 05/22/17 at 21:01; Status DC Sodium Chloride (NS 250 ml Inj) 250 ml @ 0 mls/hr ONCE ONCE IV Last administered on 05/18/17 17:00; Start 05/18/17 at 17:00; Stop 05/18/17 at 17:01; Status DC Warfarin Sodium (Coumadin) 1 mg DAILY@16 PO Last administered on 05/20/17 17:37 ; Start 05/19/17 at 16:00; Stop 05/21/17 at 12:42; Status DC Patient Medication Teaching (Coumadin Booklet) 1 ONCE ONCE OTHER Last administered on 05/19/17 16:00; Start 05/19/17 at 16:00; Stop 05/19/17 at 16:01; Status DC Warfarin Sodium 1 mg 1 mg NOW ONCE PO Last administered on 05/19/17 19:40; Start 05/19/17 at 19:45; Stop 05/19/17 at 19:46; Status DC Sodium Chloride (NS 250 ml Inj) 250 ml @ 15 mls/hr ONCE ONCE IV Last administered on 05/22/17 18:36; Start 05/20/17 at 10:00; Stop 05/21/17 at 02:39 ; Status DC Albuterol Sulfate (Ventolin Hfa Inh) 2 puff Q6HR INH ; Start 05/21/17 at 00:00 Warfarin Sodium (Coumadin) 2 mg DAILY@16 PO Last administered on 05/21/17 17: 27; Start 05/21/17 at 16:00; Stop 05/22/17 at 14:13; Status DC Epoetin Oleksandr (Epogen Inj) 10,000 units UNSCH PRN IV WITH DIALYSIS Last administered on 05/22/17 12:08; Start 05/21/17 at 18:30 Warfarin Sodium (Coumadin) 3 mg DAILY@16 PO Last administered on 05/22/17t 18: 35; Start 05/22/17 at 16:00 A/P Assessment and Plan A/P Acute Hypoxic Respiratory Failure-resolved --stable on RA Acute Submassive Pulmonary Embolism Right Heart Dysfunction Global severe left ventricular systolic dysfunction Cardiogenic Shock-resolved -- 2d echo 05/02: EF 30-35%, RV dysfunction with dilation --Repeat ECHO limited study scheduled on 05/09-RV function appears to have normalized, question of interatrial shunt for which cardiology consulted-d/w Dr. Taveras, recommended that once off anticoagulation, would need to be on ASA and require f/u echo periodically for evaluation. Acute Kidney Injury Hypokalemia-improved -- likely secondary to cardiogenic shock -HD initiated. - Nephrology following, Dr. Haley --Left IJ vas catheter, on hemodialysis --Hemodialysis per nephrology Hyperphosphatemia protein calorie malnutrition- severe Ileus -continue Phoslo -started on diet;chemical cell changer following; recommendations noted- PEG was discussed with the patient which he declined- he states that his appetite is better now- will start another calorie count today. --evaluated by General surgery and GI . -Expanded bowel regimen MiraLAX, lactulose. Large Cell B-cell lymphoma Pulmonary Embolism anemia of chronic disease C. difficile colitis -- hematology/oncology following Dr. Connelly-chemo with [facility] regimen initiated. -- continue heparin drip. continue coumadin-monitor PT/INR. -s/p PRBC transfusion. -Epogen with HD. --continue Flagyl and Vanco- plan for 14 days- evaluated by ID . continue PT. Prophylaxis: DVT: SCDs, heparin drip/coumadin Discharge Planning when INR is therapeutic and cleared by Nephrology. Catalina Eller MD May 23, 2017 07:41
[2017-05-23] MEDS: CHLORHEXIDINE 0.12% (ORAL KIT) 15 ML CUP MT SCH ×2 (08:00→19:58)
[2017-05-23] MEDS: CALCIUM ACETATE 667 MG CAP PO SCH ×3 (09:00→18:58)
[2017-05-23] MEDS: NIFEdipine 90 MG SUSTAINED RELEASE TAB PO SCH (09:00)
[2017-05-23] MEDS: ALLOPURINOL 100 MG TAB PO SCH (10:44)
[2017-05-23] MEDS: VANCOMYCIN 500 MG VIAL (FOR ORAL USE ONLY) PO SCH ×4 (10:44→20:58)
[2017-05-23] MEDS: PANTOPRAZOLE SODIUM 40 MG VIAL IV PUSH SCH (10:45)
--- NOTE | 2017-05-23 11:28 | HHI.NPPN ---
Subjective History of Present Illness 47-year-old male with no known past medical history who came to the hospital with complaint of nausea, vomiting and abdominal pain on April 18. I was called to see the patient because of elevated BUN and creatinine. The patient had a creatinine of 1.3 on presentation which improved to 0.7 and 0.8, then started increasing for last few days. Additional Remarks Patient is alert, started eating better. Objective Data Data 05/22/17 05/23/17 19:00 07:00 Intake Total 600 ml 829 ml Output Total 2700 ml 575 ml Balance -2100 ml 254 ml Intake Oral 600 ml 600 ml IV Total 229 ml Output Urine Total 200 ml 575 ml Hemodialysis 2500 ml Vital Signs Date Time Temp Pulse Resp B/P Pulse Ox O2 Delivery O2 Flow Rate FiO2 05/23/17 08:00 97.0 69 12 122/75 98 05/23/17 04:00 97.5 72 16 105/65 97 05/23/17 00:00 97.5 87 16 104/64 93 05/22/17 21:24 95.9 77 20 120/76 97 05/22/17 21:00 73 05/22/17 20:00 96.4 82 17 115/69 97 05/22/17 18:48 96.8 76 18 123/77 97 05/22/17 18:25 97.5 76 18 121/77 96 05/22/17 16:00 97.8 86 18 115/76 99 05/22/17 16:00 77 05/22/17 12:00 97.5 90 18 103/62 99 -: 05/23/17 0500 05/21/17 0530 Physical Exam General Appearance: Malnourished Eyes Eye Exam: Pupils Equal Throat Throat Exam: Oral Mucosa [place] & Moist Pulmonary Resp Exam: Crackles, Rhonchi, Decreased Bases, Diminished Breath Sounds, Poor Inspiratory Effort Cardiology CV Exam: Regular, Normal Sinus Rhythm Gastrointestinal/Abdomen GI Exam: Soft, Non-Tender, Bowel Sounds Present, Distended Extremeties Extremities Exam: Trace Edema Neurologic Neuro Exam: Awake Assessment/Plan Assessment Summary: ALDO/Acute Renal Failure Problem List: (1) Non-Hodgkin lymphoma Plan: Hematology following, need for chemotherapy in the future. (2) Adenopathy (3) Pleural effusion (4) Shortness of breath (5) Pulmonary emboli Plan: on anticoagulation. (6) Acute pancreatitis (7) ALDO (acute kidney injury) Plan: He has become dialysis dependent. Plan Still no signs of renal recovery. Monitor renal function and urine output. Avoid nephrotoxins. Multiple medical problems, alcohol induced pancreatitis. Follow the urine out put and BMP. Urine out put is improving. Creatinine is still elevated. Continue HD as needed. Problem Qualifiers (1) Non-Hodgkin lymphoma: (2) Acute pancreatitis: Qualified Code: K85.20 - Alcohol-induced acute pancreatitis, unspecified complication status Leonid Haley MD May 23, 2017 11:28
--- NOTE | 2017-05-23 12:26 | PD.ONC.PN ---
Subjective Subjective Remarks Patient resting in bed watching TV in no distress Denies any acute complaints Overall feeling much better Objective Data Date Time Temp Pulse Resp B/P Pulse Ox O2 Delivery O2 Flow Rate FiO2 05/23/17 08:00 74 05/23/17 08:00 97.0 69 12 122/75 98 05/23/17 04:00 97.5 72 16 105/65 97 05/23/17 00:00 97.5 87 16 104/64 93 05/22/17 21:24 95.9 77 20 120/76 97 05/22/17 21:00 73 05/22/17 20:00 96.4 82 17 115/69 97 05/22/17 18:48 96.8 76 18 123/77 97 05/22/17 18:25 97.5 76 18 121/77 96 05/22/17 16:00 97.8 86 18 115/76 99 05/22/17 16:00 77 05/23/17 05/23/17 05/23/17 07:00 15:00 23:00 Intake Total 589 ml Output Total 375 ml Balance 214 ml Result Diagram: 05/23/17 0500 05/21/17 0530 Laboratory Results Laboratory Tests Test 05/22/17 05/23/17 14:17 05:00 Crossmatch Leukocyte-Reduced Red Blood Cells Blood Bank Comment White Blood Count 3.3 TH/MM3 Red Blood Count 2.69 MIL/MM3 Hemoglobin 8.2 GM/DL Hematocrit 23.4 % Mean Corpuscular Volume 87.1 FL Mean Corpuscular Hemoglobin 30.4 PG Mean Corpuscular Hemoglobin 34.9 % Concent Red Cell Distribution Width 17.8 % Platelet Count 195 TH/MM3 Mean Platelet Volume 7.3 FL Neutrophils (%) (Auto) 98.6 % Lymphocytes (%) (Auto) 1.1 % Monocytes (%) (Auto) 0.3 % Eosinophils (%) (Auto) 0.0 % Basophils (%) (Auto) 0.0 % Neutrophils # (Auto) 3.3 TH/MM3 Lymphocytes # (Auto) 0.0 TH/MM3 Monocytes # (Auto) 0.0 TH/MM3 Eosinophils # (Auto) 0.0 TH/MM3 Basophils # (Auto) 0.0 TH/MM3 CBC Comment DIFF FINAL Differential Comment Prothrombin Time 12.7 SEC Prothromb Time International 1.1 RATIO Ratio Activated Partial 42.7 SEC Thromboplast Time Uric Acid 5.0 MG/DL Lactate Dehydrogenase 358 U/L Administered Medications Medications (Trade) Dose Ordered Sig/Shyla Route PRN Reason Start Time Stop Time Status Last Admin Dose Admin Sodium Chloride (NS Flush) 2 ml UNSCH PRN IV FLUSH FLUSH AFTER USING IV ACCESS 04/18/17 17:30 05/21/17 11:52 Hydralazine HCl (Apresoline Inj) 10 mg Q6HR PRN IV PUSH SBP>160, DBP>90 04/21/17 17:00 04/27/17 10:15 Nifedipine (Procardia Xl) 90 mg DAILY PO 04/28/17 09:00 05/23/17 09:00 Clonidine (Catapres) 0.1 mg Q6H PRN PO SBP>160, DBP>90 04/27/17 15:00 04/29/17 08:07 Ondansetron HCl (Zofran Inj) 4 mg Q6HR PRN IV PUSH NAUSEA OR VOMITING 04/30/17 11:30 05/07/17 10:06 Promethazine HCl (Phenergan Inj) 25 mg Q6H PRN IM NAUSEA OR VOMITING 04/30/17 11:30 05/01/17 13:27 Acetaminophen/ Hydrocodone Bitart ([place] 5-325 Mg) 1 tab Q6H PRN PO PAIN SCALE 1 TO 10 04/30/17 11:30 05/12/17 02:48 Chlorhexidine Gluconate 15 ml 15 ml BID@08,20 MT 05/02/17 20:00 05/20/17 20:00 Fentanyl Citrate 250 ml @ 0 mls/hr TITRATE IV 05/02/17 10:00 05/10/17 05:36 Propofol (Diprivan 1000 Mg/100ml Inj) 100 ml @ 0 mls/hr TITRATE IV 05/02/17 10:00 05/10/17 06:54 Miscellaneous Information Patient in critical care unit? Ass... [id number] .XX 05/02/17 17:15 05/02/17 17:30 Heparin Sodium/ Dextrose (Heparin-D5W Inj) 250 ml @ 0 mls/hr TITRATE IV 05/03/17 02:00 05/21/17 17:30 Calcium Acetate (Phoslo) 2,668 mg TID PO 05/03/17 09:00 05/22/17 18:35 Allopurinol (Zyloprim) 200 mg DAILY PO 05/06/17 09:00 05/23/17 10:44 Pantoprazole Sodium (Protonix Inj) 40 mg DAILY IV PUSH 05/07/17 12:00 05/23/17 10:45 Artificial Tears 1 applic 1 applic Q8H EACH EYE 05/07/17 18:00 05/19/17 10:00 Sodium Chloride (NS 1000 ml Inj) 1,000 ml @ 0 mls/hr TITRATE PRN IV WITH DIALYSIS 05/07/17 18:00 05/22/17 12:08 Heparin Sodium (Porcine) (Heparin Inj) Dwell Heparin to f... UNSCH PRN OTHER WITH DIALYSIS 05/07/17 18:00 05/22/17 12:09 Gentamicin Sulfate (Gentamicin (Dialysis) Inj) 10 mg UNSCH PRN OTHER WITH DIALYSIS 05/07/17 18:00 05/22/17 12:09 Metronidazole (Flagyl) 500 mg Q8HR PO 05/11/17 14:00 05/25/17 12:00 05/23/17 05:04 Vancomycin HCl (VANCOMYCIN for oral use only) 500 mg QID PO 05/13/17 13:00 05/25/17 23:00 05/23/17 10:44 Dronabinol (Marinol) 5 mg BID@11,16 PO 05/14/17 16:00 05/21/17 17:27 Epoetin Oleksandr (Epogen Inj) 10,000 units UNSCH PRN IV WITH DIALYSIS 05/21/17 18:30 05/22/17 12:08 Warfarin Sodium (Coumadin) 3 mg DAILY@16 PO 05/22/17 16:00 05/22/17 18:35 Objective Remarks GENERAL: Malnourished appearing male, resting in bed watching TV in no distress SKIN: Warm and dry. vas-cath, left neck. HEAD: Normocephalic. EYES: No injection or drainage. NECK: Supple, trachea midline. CARDIOVASCULAR: +S1/S2 RESPIRATORY: Breath sounds equal bilaterally. No accessory muscle use. GASTROINTESTINAL: Abdomen soft, non-tender, nondistended. EXTREMITIES: No cyanosis, or edema. NEUROLOGICAL: awake and alert, normal speech. moving all extremities. Assessment/Plan Problem List: (1) Non-Hodgkin lymphoma Status: Acute Plan: --Has aggressive triple hit lymphoma. --Received Rituxan x1. --Neck adenopathy relatively stable. --05/18-->[facility] chemotherapy (2) Pulmonary emboli Status: Acute Plan: --on heparin gtt-->coumadin --CTA showed large PE --s/p tpa therapy on 05.02. now on heparin gtt. (3) ALDO (acute kidney injury) Status: Acute Plan: Renal function has not recovered. Remains on HD. Minimal urine output. (4) Normocytic anemia Status: Acute Plan: --multifactorial due to chronic disease, renal failure --monitor and transfuse as needed (5) C. difficile colitis Status: Acute Plan: --on PO Vanco Assessment 47y/o male admitted with pancreatitis, found to have NHL. Plan 1. Patient received 1 unit packed red blood cells yesterday. 2. It is noted that his LDH has stabilized. 3. His INR has been labile, will increase Coumadin to 4 mg by mouth daily. 4. Okay for discharge from oncology standpoint once INR is therapeutic Attending Statement The exam, history, and the medical decision-making described in the above note were completed with the assistance of the mid-level provider. I reviewed and agree with the findings presented. I attest that I had a [id number] encounter with the patient on the same day, and personally performed and documented my assessment and findings in the medical record. Pt seen and examined. No complaints. Continue support. Problem Qualifiers (1) Non-Hodgkin lymphoma: Tia Montenegro May 23, 2017 12:26 Joanna Castellon MD May 23, 2017 15:52
[2017-05-23] MEDS: DRONABINOL 5 MG CAP PO SCH ×2 (13:04→16:00)
[2017-05-23] MEDS: WARFARIN SOD 4 MG TAB PO SCH (16:37)
[2017-05-23] MEDS: HEPARIN-D5W 25,000 U/250 ML 250 ML IV SCH (18:59)
[2017-05-24] VITALS (10 sets, daily range): BP systolic 100–122; BP diastolic 58–80; PULSE 73–84; RESP 12–18; TEMP 96.1–98.1; O2SAT 96–98
[2017-05-24] MEDS: ALBUTEROL SULFATE 90 MCG/ACT HFA 18 GM INHALER INH SCH ×3 (03:17→18:00)
[2017-05-24] MEDS: metroNIDAZOLE 500 MG TAB PO SCH ×3 (05:49→21:58)
[2017-05-24 06:57] LABS: AUTOMATED NEUTROPHIL # 4.2 TH/MM3 (1.8-7.7); BASOPHIL % 0.1 % (0.0-2.0); EOSINOPHIL % 0.1 % (0.0-4.0); HEMATOCRIT 24.5 % (39.0-51.0); HEMO FLAGS DIFF FINAL; LYMPH % 6.6 % (9.0-44.0); LYMPHOCYTE # 0.3 TH/MM3 (1.0-4.8); MEAN CELL VOLUME 88.4 FL (80.0-100.0); MEAN CORPUSCULAR HEMOGLOBIN 29.2 PG (27.0-34.0); MONO % 0.6 % (0.0-8.0); NEUT % 92.6 % (16.0-70.0); PLATELET COUNT 196 TH/MM3 (150-450); RED BLOOD COUNT 2.77 MIL/MM3 (4.50-5.90); RED CELL DISTRIBUTION WIDTH 17.3 % (11.6-17.2); WHITE BLOOD COUNT 4.5 TH/MM3 (4.0-11.0)
--- NOTE | 2017-05-24 07:49 | HHI.PR ---
Subjective Remarks resting comfortably with no distress. denies pain. no sob. no new complaints. Objective Vitals Vital Signs Date Time Temp Pulse Resp B/P Pulse Ox O2 Delivery O2 Flow Rate FiO2 05/24/17 04:00 96.2 79 16 100/58 96 05/24/17 00:00 96.1 73 16 120/75 97 05/23/17 21:00 79 05/23/17 20:00 97.0 77 16 117/72 98 05/23/17 16:00 96.5 80 14 112/70 97 05/23/17 12:00 69 05/23/17 12:00 96.3 71 14 129/79 97 05/23/17 08:00 74 05/23/17 08:00 97.0 69 12 122/75 98 I/O 05/23/17 05/23/17 05/23/17 05/24/17 05/24/17 05/24/17 07:00 15:00 23:00 07:00 15:00 23:00 Intake Total 589 ml 60 ml 240 ml 240 ml Output Total 375 ml 200 ml 150 ml 450 ml Balance 214 ml -140 ml 90 ml -210 ml Intake Oral 360 ml 60 ml 240 ml 240 ml IV Total 229 ml Output Urine Total 375 ml 200 ml 150 ml 450 ml # Voids 2 # Bowel Movements 0 Result Diagram: 05/24/1759905/21/17 0530 Imaging Last Impressions Chest X-Ray 05/21/17599 Signed Impressions: Service Date/Time: May 06:05 - CONCLUSION: Bibasilar opacities the majority represent effusion appreciated without posterior left lower lobe retrocardiac density consolidation atelectasis versus infiltrate there was underlying in the right medial base suggesting air fluid level the possibility of cavitary lesion with air-fluid level cannot be excluded. There is persistent mediastinal mass widening. Stanford Mcdonough MD Abdomen X-Ray 05/15/17 0600 Draft Impressions: Service Date/Time: Monday, May 15, 2017 04:29 - CONCLUSION: Findings of mild small bowel ileus. There has been no significant change when compared to the prior exam. Jadon Carroll MD Central Venous Line 05/15/17 0000 Signed Impressions: Service Date/Time: Monday, May 15, 2017 00:00 - CONCLUSION: Uncomplicated catheter removal. Bryon Calero Jr., MD Catheter Placement X-Ray 05/15/17 0000 Signed Impressions: Service Date/Time: Monday, May 15, 2017 15:13 - CONCLUSION: Mild narrowing involving the brachiocephalic vein near its junction with the SVC. This is not flow limiting. A left-sided vas catheter was placed. Bryon Calero Jr., MD Abdomen/Pelvis CT 05/09/17 0000 Signed Impressions: Service Date/Time: Tuesday, May 09, 2017 21:16 - CONCLUSION: 1. Diffusely distended loops of small bowel down to the cecum suggest ileus. 2. Evidence of mesenteric and retroperitoneal adenopathy. 3. Large bilateral pleural effusions , moderate amount of free fluid in the pelvis and mild ascites in the upper abdomen. 4. Abnormal appearance to the parenchyma of the right kidney with patchy areas of hyperdensity in a mosaic pattern. This of uncertain significance. The patient had iodinated contrast for a CT pulmonary angiogram 7 days ago; this could potentially represent residual parenchymal contrast which would be nonspecific, but raises the possibility of either obstruction or renal infarctions. Bryon Evans MD Renal Ultrasound 05/05/17 0000 Signed Impressions: Service Date/Time: Friday, May 05, 2017 20:06 - CONCLUSION: 1. Kidneys are borderline echogenic which can be seen with medical renal disease. 2. No evidence of hydronephrosis. 3. Abdominal ascites. 4. Multiple dilated bowel loops. 5. Bilateral pleural effusions. Tray Patel MD Head CT 05/03/17 0000 Signed Impressions: Service Date/Time: Wednesday, May 03, 2017 17:22 - CONCLUSION: No acute intracranial disease. No hemorrhage seen. Tray Patel MD CT Angiography 05/02/17 0000 Signed Impressions: Service Date/Time: Tuesday, May 02, 2017 11:10 - CONCLUSION: 1. There is pulmonary embolus in the right pulmonary artery, right upper lobe and lower lobe branches. 2. Resorption of previously seen gas in the left axilla with fluid collection at this site with postprocedural change and possibly postprocedural hemorrhage not significantly changed in size. 3. Interval development of right lung airspace process may represent postobstructive pneumonia and there is mucus within the trachea not present yesterday. 4. Right pleural effusion is smaller and left pleural effusion is larger. 5. No change in bulky adenopathy. Leonor Chavez MD Upper Extremity Ultrasound 04/30/17 0000 Signed Impressions: Service Date/Time: April 12:25 - CONCLUSION: There some superficial thrombosis of a vein in the forearm. The deep venous system is patent. Large fluid collection left axilla. Significant soft tissue edema throughout the upper arm. Rinku Hillman MD Thoracentesis Ultrasound 04/30/17 0000 Signed Impressions: Service Date/Time: April 12:14 - CONCLUSION: Uncomplicated ultrasound guided thoracentesis. Tray Patel MD Port Line Insertion 04/27/17 0000 Signed Impressions: Service Date/Time: Thursday, April 27, 2017 14:56 - CONCLUSION: 1. Bulky bilateral lower cervical lymphadenopathy. 2. Uncomplicated ultrasound and fluoroscopic guided implanted central venous port catheter placement as described in detail above. An 8 [place] [employer] port was placed. Liang Peralta MD Bone Biopsy CT 04/27/17 0000 Signed Impressions: Service Date/Time: Thursday, April 27, 2017 16:22 - CONCLUSION: 1. Uncomplicated CT guided bone marrow aspirate. 2. Uncomplicated CT guided bone marrow biopsy. Tray Patel MD Chest CT 04/25/17 0000 Signed Impressions: Service Date/Time: Wednesday, April 26, 2017 19:00 - CONCLUSION: The right pleural effusion is slightly larger on the left side has not changed. Extensive bulky adenopathy as before and malignancies such as lymphoma is suspected. Leonor Chavez MD Gall Bladder Ultrasound 04/22/17 0000 Signed Impressions: Service Date/Time: Saturday, April 22, 2017 07:35 - CONCLUSION: Small liver with focal abdomen only incompletely evaluated. Large right pleural effusion. effusion. Kirk Briceño MD FACR Abdomen CT 04/20/17 0000 Signed Impressions: Service Date/Time: Thursday, April 20, 2017 19:40 - CONCLUSION: Limited exam because of lack of intravenous contrast. Lymphoma is suspected. Pathological diagnosis could be obtained with ultrasound biopsy of the cervical, axillary or inguinal adenopathy. Kirk Briceño MD FACR Objective Remarks GENERAL: in no acute distress CARDIOVASCULAR: Regular rate and regular rhythm without murmurs, gallops, or rubs. RESPIRATORY: Clear to auscultation. Breath sounds equal bilaterally. No wheezes , rales, or rhonchi. GASTROINTESTINAL: Abdomen soft, non-tender, nondistended. Normal, active bowel sounds MUSCULOSKELETAL: Extremities without clubbing, cyanosis, or edema. NEURO: awake and alert Procedures 04/[address] excision biopsy 04/27- port placement 05/02-TPA 05/06-left IJ Vas-Cath placement endotracheal intubation Medications and IVs Current Medications Ondansetron HCl 4 mg 4 mg ONCE ONCE IVP Last administered on 04/18/17 17:38; Start 04/18/17 at 17:30; Stop 04/18/17 at 17:31; Status DC Sodium Chloride (NS 1000 ml Inj) 1,000 ml @ 1,000 mls/hr Q1H IV Last administered on 04/18/17 17:38; Start 04/18/17 at 17:16; Stop 04/18/17 at 18:15; Status DC Sodium Chloride 2 ml 2 ml UNSCH PRN IV FLUSH FLUSH AFTER USING IV ACCESS Last administered on 05/21/17 11:52; Start 04/18/17 at 17:30 Sodium Chloride 1,000 ml @ 1,000 mls/hr Q1H IV Last administered on 04/18/17 18:40; Start 04/18/17 at 18:37; Stop 04/18/17 at 19:36; Status DC Potassium Chloride (KCl 20 Meq Premix Inj) 100 ml @ 50 mls/hr Q2H IV Last administered on 04/18/17 22:12; Start 04/18/17 at 19:00; Stop 04/18/17 at 22:59; Status DC Ondansetron HCl (Zofran Inj) 4 mg Q6H PRN IVP NAUSEA OR VOMITING Last administered on 04/26/17 06:04; Start 04/18/17 at 19:30; Stop 04/26/17 at 13:02 ; Status DC Morphine Sulfate (Morphine Inj) 2 mg Q3H PRN IV Pain 3-5; if unable to take PO ; Start 04/18/17 at 19:30; Status Cancel Morphine Sulfate (Morphine Inj) 4 mg Q3H PRN IV Pain 6-10;if unable to take PO ; Start 04/18/17 at 19:30; Status Cancel Naloxone HCl (Narcan Inj) 0.4 mg UNSCH PRN IV SEE LABEL COMMENTS; Start at 19:30 Senna/Docusate Sodium (Porsha-Colace) 1 tab BID PO Last administered on 07:52; Start 04/18/17 at 21:00; Stop 05/13/17 at 17:16; Status DC Magnesium Hydroxide (Milk Of Magnesia Liq) 30 ml Q12H PRN PO MILD - MODERATE CONSTIPATION Last administered on 05/09/17 08:01; Start 04/18/17 at 19:30; Stop 05/13/17 at 17:16; Status DC Sennosides (Senokot) 17.2 mg Q12H PRN PO MODERATE - SEVERE CONSTIPATION; Start 04/18/17 at 19:30; Stop 05/13/17 at 17:16; Status DC Bisacodyl (Dulcolax Supp) 10 mg DAILY PRN RECTAL SEVERE CONSITIPATION; Start at 19:30; Stop 05/13/17 at 17:16; Status DC Lactulose 30 ml 30 ml DAILY PRN PO SEVERE CONSITIPATION; Start 04/18/17 at 19:30 ; Stop 05/13/17 at 17:16; Status DC Potassium Chloride/Sodium Chloride 1,000 ml @ 125 mls/hr Q8H IV ; Start at 21:00; Stop 04/18/17 at 21:00; Status DC Potassium Chloride/Sodium Chloride 1,000 ml @ 83 mls/hr Q12H3M IV Last administered on 04/23/17 01:19; Start 04/19/17 at 02:00; Stop 04/23/17 at 09:04 ; Status DC Sodium Chloride (NS 1000 ml Inj) 1,000 ml @ 125 mls/hr Q8H IV Last administered on 04/18/17 20:00; Start 04/18/17 at 20:00; Stop 04/19/17 at 16:01; Status DC Pneumococcal Polyvalent Vaccine 25 mcg 25 mcg ONCE ONCE IM Last administered on 04/19/17 11:20; Start 04/19/17 at 09:00; Stop 04/19/17 at 09:01; Status DC Ceftriaxone Sodium/Sodium Chloride (Rocephin Inj/NS Inj) 100 ml @ 200 mls/hr Q24H IV Last administered on 04/24/17 12:51; Start 04/19/17 at 13:00; Stop at 14:33; Status DC Heparin Sodium (Porcine) (Heparin Inj) 5,000 units Q8HR SQ Last administered on 05/02/17 12:46; Start 04/19/17 at 14:00; Stop 05/19/17 at 10:23; Status DC Azithromycin (Zithromax) 500 mg Q24H PO Last administered on 04/24/17 12:51; Start 04/19/17 at 13:00; Stop 04/24/17 at 14:33; Status DC Clonidine (Catapres) 0.1 mg ONCE ONCE PO Last administered on 04/20/17 22:16 ; Start 04/20/17 at 21:45; Stop 04/20/17 at 21:46; Status DC Nifedipine (Procardia Xl) 30 mg DAILY PO Last administered on 04/25/17 09:42; Start 04/21/17 at 17:00; Stop 04/25/17 at 13:12; Status DC Hydralazine HCl 10 mg 10 mg Q6HR PRN IV PUSH SBP>160, DBP>90 Last administered on 04/27/17 10:15; Start 04/21/17 at 17:00 Cefazolin Sodium/ Sodium Chloride (Ancef Inj/NS Inj) 100 ml @ 200 mls/hr STILL RUNNER IV ; Start 04/21/17 at 21:30; Stop 04/24/17 at 21:29; Status DC Midazolam HCl (Versed Inj) 2 mg STK-MED ONCE .ROUTE Last administered on 09:02; Start 04/22/17 at 09:02; Stop 04/22/17 at 09:03; Status DC Bupivacaine HCl/ Epinephrine Bitart (Sensorcaine-Epi 0.5% 50 ml Inj) 50 ml STK- MED ONCE INFIL ; Start 04/22/17 at 09:25; Stop 04/22/17 at 09:26; Status Cancel Albuterol Sulfate (*ALBUTEROL NEB PERIprocedure ONLY) 2.5 mg STK-MED ONCE NEB Last administered on 04/22/17 10:06; Start 04/22/17 at 10:06; Stop 04/22/17 at 10:07; Status DC Fentanyl Citrate (fentaNYL INJ) 200 mcg STK-MED ONCE .ROUTE ; Start 04/22/17 at 10:10; Stop 04/22/17 at 10:11; Status DC Bupivacaine HCl (Marcaine Pf 0.5% Inj) 30 ml STK-MED ONCE INFIL Last administered on 04/22/17 09:25; Start 04/22/17 at 09:25; Stop 04/22/17 at 10:49 ; Status DC Miscellaneous Information ALL NURSING DEPARTME... UNSCH PRN .XX SEE LABEL COMMENTS; Start 04/22/17 at 10:01; Stop 04/23/17 at 10:00; Status DC Dextrose/Sodium Chloride 1,000 ml @ 60 mls/hr [id number] IV Last administered on 04/24/17 06:40; Start 04/23/17 at 12:45; Stop 04/24/17 at 14:36; Status DC Potassium Chloride/Dextrose/ Sodium Chloride (KCl Inj/D5W-NS 1000 ml Inj) 1,015 ml @ 70 mls/hr [id number] IV Last administered on 04/25/17 05:34; Start at 16:00; Stop 04/25/17 at 13:12; Status DC Promethazine HCl (Phenergan Inj) 25 mg ONCE ONCE IM Last administered on 11:55; Start 04/25/17 at 08:00; Stop 04/25/17 at 08:01; Status DC Nifedipine 60 mg 60 mg DAILY PO Last administered on 04/27/17 10:02; Start at 09:00; Stop 04/27/17 at 14:48; Status DC Potassium Chloride/Dextrose/ Sodium Chloride (KCl Inj/D5W-NS 1000 ml Inj) 1,015 ml @ 60 mls/hr [id number] IV Last administered on 04/27/17 18:18; Start at 15:00; Stop 04/28/17 at 11:49; Status DC Promethazine HCl (Phenergan Inj) 12.5 mg Q8H PRN IM PERSISTENT NAUSEA Last administered on 04/30/17 04:34; Start 04/26/17 at 13:15; Stop 04/30/17 at 11:28 ; Status DC Allopurinol 300 mg 300 mg DAILY PO Last administered on 05/05/17 08:12; Start 04/27/17 at 09:00; Stop 05/05/17 at 12:10; Status DC Vancomycin HCl 1000 mg/Sodium Chloride 250 ml @ 250 mls/hr STILL RUNNER IV Last administered on 04/27/17 13:49; Start 04/27/17 at 10:00; Stop 04/30/17 at 09:59 ; Status DC Cefazolin Sodium/ Dextrose (Ancef 2 Gm Premix) 50 ml @ 100 mls/hr STILL RUNNER IV Last administered on 04/27/17 15:42; Start 04/27/17 at 10:00; Stop 04/30/17 at 09:59; Status DC Nifedipine (Procardia Xl) 90 mg DAILY PO Last administered on 05/23/17 09:00; Start 04/28/17 at 09:00 Clonidine (Catapres) 0.1 mg Q12HR PO ; Start 04/27/17 at 21:00; Status UNV Clonidine (Catapres) 0.1 mg Q6H PRN PO SBP>160, DBP>90 Last administered on 08:07; Start 04/27/17 at 15:00 Heparin Sodium (Porcine) (*HEPARIN CENTRAL FLUSH PERIprocedural ONLY) 500 units STK-MED ONCE IV FLUSH Last administered on 04/27/17 14:51; Start 04/27/17 at 14:51; Stop 04/27/17 at 14:52; Status DC Lidocaine/ Epinephrine (Xylocaine-Epi 1%-1:100,000 Inj) 20 ml STK-MED ONCE .ROUTE Last administered on 04/27/17 14:51; Start 04/27/17 at 14:51; Stop at 14:52; Status DC Midazolam HCl (Versed Inj) 5 mg STK-MED ONCE .ROUTE Last administered on 14:52; Start 04/27/17 at 14:52; Stop 04/27/17 at 14:53; Status DC Fentanyl Citrate 250 mcg 250 mcg STK-MED ONCE .ROUTE Last administered on 14:53; Start 04/27/17 at 14:53; Stop 04/27/17 at 14:54; Status DC Sodium Chloride (NS 1000 ml Inj) 1,000 ml @ 100 mls/hr Q10H IV Last administered on 04/29/17 17:55; Start 04/29/17 at 15:00; Stop 04/30/17 at 00:59 ; Status DC Acetaminophen (Tylenol) 650 mg ONCE ONCE PO Last administered on 04/30/17 16: 44; Start 04/30/17 at 13:00; Stop 04/30/17 at 13:01; Status DC Diphenhydramine HCl 50 mg 50 mg ONCE ONCE PO Last administered on 04/30/17 16 :43; Start 04/30/17 at 13:00; Stop 04/30/17 at 13:01; Status DC Rituximab/Sodium Chloride (Rituxan Inj/NS 500 ml Inj) 571.625 ml @ 0 mls/hr ONCE ONCE IV Last administered on 05/01/17 13:15; Start 04/30/17 at 14:00; Stop 04/30/17 at 14:01; Status DC Prednisone 115 mg 115 mg Q12H PO ; Start 04/30/17 at 13:00; Stop 05/01/17 at 11: 21; Status DC Dexamethasone Sodium Phosphate 20 mg/Granisetron HCl 1 mg/Sodium Chloride 56 ml @ 224 mls/hr Q24H IV ; Start 04/30/17 at 15:00; Stop 05/01/17 at 11:26; Status DC Potassium Chloride 100 ml @ 50 mls/hr BOLUS ONCE IV Last administered on 04/30 10:20; Start 04/30/17 at 10:00; Stop 04/30/17 at 11:59; Status DC Etoposide 95.5 mg/ Doxorubicin HCl 19.1 mg/ Vincristine Sulfate 0.764 mg/ Sodium Chloride 515.089 ml @ 21.462 mls/hr Q24H IV ; Start 04/30/17 at 15:00; Stop 05/18/17 at 13:46; Status DC Cyclophosphamide/ Sodium Chloride (Cytoxan Inj/NS 500 ml Inj) 500 ml @ 500 mls/ hr ONCE ONCE IV ; Start 05/04/17 at 14:00; Stop 05/04/17 at 14:59; Status DC Ondansetron HCl (Zofran Inj) 4 mg Q6HR PRN IV PUSH NAUSEA OR VOMITING Last administered on 05/07/17 10:06; Start 04/30/17 at 11:30 Promethazine HCl (Phenergan Inj) 25 mg Q6H PRN IM NAUSEA OR VOMITING Last administered on 05/01/17 13:27; Start 04/30/17 at 11:30 Acetaminophen/ Hydrocodone Bitart ([place] 5-325 Mg) 1 tab Q6H PRN PO PAIN SCALE 1 TO 10 Last administered on 05/12/17 02:48; Start 04/30/17 at 11:30 Albuterol/ Ipratropium (Duoneb Neb) 1 ampule ONCE ONCE NEB Last administered on 04/30/17 20:16; Start 04/30/17 at 19:45; Stop 04/30/17 at 20:11; Status DC Albuterol/ Ipratropium (Duoneb Neb) 1 ampule Q2HR NEB PRN NEB sob, wheeze; Start 04/30/17 at 20:45; Stop 05/02/17 at 10:14; Status DC Morphine Sulfate (Morphine Inj) 2 mg ONCE ONCE IV PUSH Last administered on 23:36; Start 04/30/17 at 23:30; Stop 04/30/17 at 23:31; Status DC Furosemide (Lasix Inj) 10 mg ONCE ONCE IV PUSH Last administered on 05/01/17 01:01; Start 05/01/17 at 00:00; Stop 05/01/17 at 00:01; Status DC Furosemide (Lasix Inj) 20 mg ONCE ONCE IV PUSH Last administered on 05/01/17 09:09; Start 05/01/17 at 07:45; Stop 05/01/17 at 07:52; Status DC Acetaminophen (Tylenol) 650 mg NOW ONCE PO Last administered on 05/01/17 10: 51; Start 05/01/17 at 10:45; Stop 05/01/17 at 10:46; Status DC Diphenhydramine HCl 50 mg 50 mg NOW ONCE PO Last administered on 05/01/17 10: 51; Start 05/01/17 at 10:45; Stop 05/01/17 at 10:46; Status DC Rituximab/Sodium Chloride (Rituxan Inj/NS 500 ml Inj) 571.625 ml @ 0 mls/hr ONCE ONCE IV ; Start 05/01/17 at 12:00; Stop 05/01/17 at 12:01; Status DC Acetaminophen (Tylenol) 650 mg ONCE ONCE PO ; Start 05/01/17 at 11:30; Stop at 11:31; Status DC Diphenhydramine HCl (Benadryl) 50 mg ONCE ONCE PO ; Start 05/01/17 at 11:30; Stop 05/01/17 at 11:31; Status DC Prednisone 115 mg 115 mg Q12HR PO Last administered on 05/02/17 20:08; Start 05/01/17 at 11:00; Stop 05/05/17 at 21:01; Status DC Dexamethasone Sodium Phosphate/ Granisetron HCl/ Sodium Chloride (Decadron Inj/ Kytril Inj/NS Inj) 56 ml @ 224 mls/hr Q24H IV ; Start 05/01/17 at 11:30; Stop 05/06/17 at 11:44; Status DC Metoclopramide HCl (Reglan Inj) 10 mg Q8HR IV PUSH Last administered on 04:59; Start 05/01/17 at 15:30; Stop 05/09/17 at 19:03; Status DC Pantoprazole Sodium (Protonix) 40 mg DAILY PO Last administered on 05/06/17 08 :17; Start 05/01/17 at 16:00; Stop 05/07/17 at 11:49; Status DC Furosemide (Lasix Inj) 20 mg ONCE ONCE IV PUSH Last administered on 05/01/17 16:14; Start 05/01/17 at 15:30; Stop 05/01/17 at 15:31; Status DC Albuterol/ Ipratropium (Duoneb Neb) 1 ampule BID NEB INH Last administered on 05/02/17 07:47; Start 05/01/17 at 20:00; Stop 05/02/17 at 10:18; Status DC Furosemide (Lasix Inj) 20 mg STAT ONCE IV PUSH Last administered on 05/02/17 08:40; Start 05/02/17 at 08:30; Stop 05/02/17 at 08:37; Status DC Etomidate (Amidate Inj) 20 mg STK-MED ONCE .ROUTE Last administered on 12:48; Start 05/02/17 at 09:23; Stop 05/02/17 at 09:24; Status DC Dextrose (D50w (Vial) Inj) 25 ml UNSCH PRN IV PUSH HYPOGLYCEMIA-SEE COMMENTS; Start 05/02/17 at 10:00; Stop 05/16/17 at 08:09; Status DC Insulin Human Regular (NovoLIN R SUPPLEMENTAL SCALE) 1 Q6HR SQ Last administered on 05/04/17 18:00; Start 05/02/17 at 12:00; Stop 05/16/17 at 08:09 ; Status DC Chlorhexidine Gluconate (Peridex 0.12% Liq) 15 ml BID@08,20 MT Last administered on 05/20/17 20:00; Start 05/02/17 at 20:00 Magnesium Oxide 800 mg 800 mg UNSCH PRN PO For Magnesium 1.2 - 1.6 mg/dL; Start 05/02/17 at 10:00; Stop 05/03/17 at 13:51; Status DC Magnesium Sulfate 4 gm/Sodium Chloride 100 ml @ 50 mls/hr UNSCH PRN IV For Magnesium 0.9 - 1.1 mg/dL; Start 05/02/17 at 10:00; Stop 05/03/17 at 13:51; Status DC Magnesium Sulfate 2 gm/Sodium Chloride 100 ml @ 50 mls/hr UNSCH PRN IV For Magnesium 1.2 - 1.6 mg/dL; Start 05/02/17 at 10:00; Stop 05/03/17 at 13:51; Status DC Potassium Chloride 100 ml @ 50 mls/hr Q2H PRN IV For Potassium 2.8 - 3.2 mEq/L ; Start 05/02/17 at 10:00; Stop 05/03/17 at 13:51; Status DC Potassium Chloride 100 ml @ 50 mls/hr Q2H PRN IV For Potassium 3.3 - 3.5 mEq/L ; Start 05/02/17 at 10:00; Stop 05/03/17 at 13:51; Status DC Potassium Chloride 100 ml @ 50 mls/hr Q2H PRN IV For Potassium 2.8 - 3.2 mEq/L ; Start 05/02/17 at 10:00; Stop 05/03/17 at 13:51; Status DC Potassium Chloride (KCl 40 Meq Premix Inj) 100 ml @ 25 mls/hr UNSCH PRN IV For Potassium 3.3 - 3.5 mEq/L; Start 05/02/17 at 10:00; Stop 05/03/17 at 13:51; Status DC Potassium Phosphate (K-Phos) 2,000 mg Q4H PRN PO For Phosphorus < 2.5 mg/dL; Start 05/02/17 at 10:00; Stop 05/03/17 at 13:51; Status DC Potassium Phosphate 2000 mg 2,000 mg UNSCH PRN PO/TUBE SEE LABEL COMMENTS; Start 05/02/17 at 10:00; Stop 05/03/17 at 13:51; Status DC Potassium Phosphate 30 mmol/ Sodium Chloride 260 ml @ 42 mls/hr UNSCH PRN IV SEE LABEL COMMENTS; Start 05/02/17 at 10:00; Stop 05/03/17 at 13:52; Status DC Sodium Phosphate/ Sodium Chloride (Sodium Phosphate Inj/NS 250 ml Inj) 250 ml @ 42 mls/hr UNSCH PRN IV For Phosphorus < 2.5 mg/dL; Start 05/02/17 at 10:00; Stop 05/03/17 at 13:52; Status DC Albuterol/ Ipratropium (Duoneb Neb) 1 ampule Q6HR NEB INH Last administered on 05/06/17 03:23; Start 05/02/17 at 10:00; Stop 05/06/17 at 10:00; Status DC Albuterol/ Ipratropium 1 ampule 1 ampule Q2HR NEB PRN INH WHEEZING Last administered on 05/08/17 08:08; Start 05/02/17 at 10:00 Fentanyl Citrate 250 ml @ 0 mls/hr TITRATE IV Last administered on 05/10/17 05 :36; Start 05/02/17 at 10:00 Propofol (Diprivan 1000 Mg/100ml Inj) 100 ml @ 0 mls/hr TITRATE IV Last administered on 05/10/17 06:54; Start 05/02/17 at 10:00 Iohexol 75 ml 75 ml STK-MED ONCE IV Last administered on 05/02/17 11:31; Start 05/02/17 at 11:31; Stop 05/02/17 at 11:32; Status DC Cefepime HCl 2000 mg/Sodium Chloride 100 ml @ 200 mls/hr Q12H IV Last administered on 05/05/17 02:43; Start 05/02/17 at 15:00; Stop 05/05/17 at 11:53 ; Status DC Vancomycin HCl/ Sodium Chloride (Vancomycin Inj/ NS 250 ml Inj) 250 ml @ 250 mls/hr ONCE ONCE IV Last administered on 05/02/17 16:14; Start 05/02/17 at 15 :00; Stop 05/02/17 at 15:59; Status DC Heparin Sodium (Porcine) (Heparin Inj) 5,000 units ONCE ONCE IV Last administered on 05/02/17 15:35; Start 05/02/17 at 16:00; Stop 05/02/17 at 16:01 ; Status DC Miscellaneous Information Patient in critical care unit? Ass... [id number] .XX Last administered on 05/02/17 17:30; Start 05/02/17 at 17:15 Chlorhexidine Gluconate (Chlorhexidine 2% Cloth) 3 pack DAILY@04 TOPICAL Last administered on 05/07/17 03:45; Start 05/03/17 at 04:00; Stop 05/07/17 at 04:01 ; Status DC Chlorhexidine Gluconate 3 pack 3 pack UNSCH PRN TOPICAL HYGIENIC CARE; Start at 17:15; Stop 05/07/17 at 17:08; Status DC Alteplase, Recombinant/ Syringe / Bag (Activase Drip/ Syringe/Bag) 49.9999 ml @ 50 mls/hr ONCE ONCE IV Last administered on 05/02/17 19:58; Start 05/02/17 at 19:15; Stop 05/02/17 at 20:14; Status DC Sodium Chloride (NS Inj) 30 ml ONCE ONCE IVF Last administered on 05/02/17 19 :15; Start 05/02/17 at 19:15; Stop 05/02/17 at 19:28; Status DC Miscellaneous Medication Thrombolysis plan for submass... ONCE ONCE OTHER Last administered on 05/02/17 19:15; Start 05/02/17 at 19:15; Stop 05/02/17 at 19:28; Status DC Heparin Sodium/ Dextrose 250 ml @ 0 mls/hr TITRATE IV Last administered on 05/23 18:59; Start 05/03/17 at 02:00 Epinephrine HCl/ Dextrose (Adrenalin (1:1000) Inj/D5W Inj) 250 ml @ 30 mls/hr TITRATE IV Last administered on 05/04/17 09:43; Start 05/03/17 at 10:15; Stop 05/07/17 at 16:44; Status DC Calcium Acetate 2668 mg 2,668 mg TID PO Last administered on 05/23/17 18:58; Start 05/03/17 at 09:00 Epoprostenol Sodium/Sodium Chloride (Flolan (30,000 Ng/ml) Neb/NS Inj) 100 ml @ 8 mls/hr Q8H NEB Last administered on 05/04/17 00:17; Start 05/03/17 at 09:00 ; Stop 05/04/17 at 14:14; Status DC Lidocaine HCl 50 ml 50 ml STK-MED ONCE .ROUTE ; Start 05/03/17 at 12:21; Stop at 12:22; Status DC Epoprostenol Sodium 40 ml/ Sodium Chloride 100 ml @ 8 mls/hr Q8H NEB Last administered on 05/06/17 06:04; Start 05/04/17 at 15:00; Stop 05/06/17 at 12:43 ; Status DC Calcium Gluconate 2 gm/Dextrose 120 ml @ 120 mls/hr ONCE ONCE IV Last administered on 05/04/17 20:00; Start 05/04/17 at 20:00; Stop 05/04/17 at 20:59 ; Status DC Cefepime HCl/ Sodium Chloride (Maxipime Inj/NS Inj) 100 ml @ 200 mls/hr Q24H IV Last administered on 05/08/17 01:36; Start 05/06/17 at 03:00; Stop at 23:00; Status DC Allopurinol (Zyloprim) 200 mg DAILY PO Last administered on 05/23/17 10:44; Start 05/06/17 at 09:00 Artificial Tears (Tears Naturale Opth Soln) 1 drop Q8H EACH EYE Last administered on 05/07/17 10:06; Start 05/05/17 at 18:00; Stop 05/07/17 at 12:11 ; Status DC Fentanyl Citrate (fentaNYL INJ) 100 mcg STK-MED ONCE IV ; Start 04/22/17 at 12: 00; Stop 05/06/17 at 12:46; Status DC Propofol (Diprivan 200 Mg/20 ml Inj) 200 mg STK-MED ONCE IV ; Start 04/22/17 at 12:00; Stop 05/06/17 at 12:46; Status DC Phenylephrine HCl (Neosynephrine/ NS 1000 Mcg/10ml Syr) 1,000 mcg STK-MED ONCE IV ; Start 04/22/17 at 12:00; Stop 05/06/17 at 12:47; Status DC Ondansetron HCl (Zofran Inj) 4 mg STK-MED ONCE IV PUSH ; Start 04/22/17 at 12:00 ; Stop 05/06/17 at 12:47; Status DC Pantoprazole Sodium (Protonix Inj) 40 mg DAILY IV PUSH Last administered on 10:45; Start 05/07/17 at 12:00 Artificial Tears 1 applic 1 applic Q8H EACH EYE Last administered on 05/19/17 10:00; Start 05/07/17 at 18:00 Sodium Chloride (NS 1000 ml Inj) 1,000 ml @ 0 mls/hr TITRATE PRN IV WITH DIALYSIS Last administered on 05/22/17 12:08; Start 05/07/17 at 18:00 Heparin Sodium (Porcine) 8000 units 8,000 units UNSCH PRN IV FLUSH WITH DIALYSIS; Start 05/07/17 at 18:00 Sodium Chloride 1,000 ml @ 200 mls/hr Q5H PRN IV WITH DIALYSIS; Start 05/07/17 at 18:00 Sodium Chloride (NS 250 ml Inj) 200 ml @ 0 mls/hr UNSCH PRN IV WITH DIALYSIS; Start 05/07/17 at 18:00 Mannitol (Mannitol Inj) 12.5 gm UNSCH PRN IV WITH DIALYSIS; Start 05/07/17 at 18:00 Albumin Human (Albumin 25% Inj) 25 gm UNSCH PRN IV WITH DIALYSIS; Start at 18:00 Sodium Chloride (NS Flush) 5 ml UNSCH PRN IV FLUSH WITH DIALYSIS; Start at 18:00 Heparin Sodium (Porcine) (Heparin Inj) Dwell Heparin to f... UNSCH PRN OTHER WITH DIALYSIS Last administered on 05/22/17 12:09; Start 05/07/17 at 18:00 Gentamicin Sulfate (Gentamicin (Dialysis) Inj) 10 mg UNSCH PRN OTHER WITH DIALYSIS Last administered on 05/22/17 12:09; Start 05/07/17 at 18:00 Gelatin (Gelfoam 12 Mm/7 Mm Top) 1 foam UNSCH PRN TOPICAL WITH DIALYSIS; Start 05/07/17 at 18:00 Ondansetron HCl (Zofran Inj) 4 mg UNSCH PRN IV NAUSEA OR VOMITING; Start at 18:00 Acetaminophen (Tylenol) 650 mg UNSCH X1 PRN PO WITH DIALYSIS Last administered on 05/08/17 10:07; Start 05/07/17 at 18:00; Stop 05/14/17 at 17:59; Status DC Diphenhydramine HCl (Benadryl) 25 mg UNSCH PRN PO WITH DIALYSIS; Start at 18:00 Nitroglycerin (Nitrostat Sl) 0.4 mg UNSCH PRN SL WITH DIALYSIS; Start 05/07/17 at 18:00 Clonidine (Catapres) 0.1 mg UNSCH PRN PO WITH DIALYSIS; Start 05/07/17 at 18:00 Polyethylene Glycol (Miralax) 17 gm DAILY PO Last administered on 05/10/17 07: 52; Start 05/08/17 at 09:00; Stop 05/13/17 at 17:16; Status DC Lactulose (Lactulose Liq) 30 ml BID PO Last administered on 05/10/17 07:51; Start 05/08/17 at 09:00; Stop 05/13/17 at 17:16; Status DC Bisacodyl (Dulcolax Supp) 10 mg DAILY PRN RECTAL CONSTIPATION; Start 05/08/17 at 08:15; Stop 05/08/17 at 08:16; Status DC Diatrizoate Meglum/ Diatrizoate Sod ( Gastroview Liq) 18 ml ONCE ONCE PO Last administered on 05/09/17 16:42; Start 05/09/17 at 14:15; Stop 05/09/17 at 14:16; Status DC Heparin Sodium (Porcine) 300 units 300 units NOW ONCE IV ; Start 05/09/17 at 18 :30; Stop 05/09/17 at 18:31; Status DC Potassium Chloride (KCl 20 Meq Premix Inj) 100 ml @ 50 mls/hr BOLUS ONCE IV Last administered on 05/10/17 13:31; Start 05/10/17 at 12:30; Stop 05/10/17 at 14:29; Status DC Sucralfate 1 gm 1 gm Q8HR PO Last administered on 05/13/17 04:46; Start at 14:00; Stop 05/13/17 at 13:59; Status DC Potassium Chloride (KCl 20 Meq Premix Inj) 100 ml @ 50 mls/hr ONCE ONCE IV Last administered on 05/11/17 08:54; Start 05/11/17 at 08:30; Stop 05/11/17 at 10:29; Status DC Metronidazole (Flagyl) 500 mg Q8HR PO Last administered on 05/24/17 05:49; Start 05/11/17 at 14:00; Stop 05/25/17 at 12:00 Morphine Sulfate 4 mg 4 mg NOW ONCE IV PUSH Last administered on 05/12/17 09: 58; Start 05/12/17 at 09:45; Stop 05/12/17 at 09:46; Status DC Potassium Chloride (KCl 40 Meq Premix Inj) 100 ml @ 25 mls/hr ONCE ONCE IV Last administered on 05/12/17 13:51; Start 05/12/17 at 13:45; Stop 05/12/17 at 17: 44; Status DC Vancomycin HCl (VANCOMYCIN for oral use only) 500 mg QID PO Last administered on 05/23/17 20:58; Start 05/13/17 at 13:00; Stop 05/25/17 at 23:00 Dronabinol (Marinol) 5 mg BID@11,16 PO Last administered on 05/23/17 13:04; Start 05/14/17 at 16:00 Heparin Sodium (Porcine) (*HEPARIN INJ Periprocedural ONLY) 10,000 units STK- MED ONCE .ROUTE Last administered on 05/15/17 15:50; Start 05/15/17 at 15:24; Stop 05/15/17 at 15:25; Status DC Sodium Chloride (NS Flush) UNSCH PRN IVF SEE PROTOCOL; Start 05/15/17 at 16:00 Heparin Sodium (Porcine) (Heparin Inj) UNSCH PRN IV FLUSH SEE PROTOCOL; Start 05/15/17 at 16:00 Iohexol (Omnipaque 350 Inj) 10 ml STK-MED ONCE IV Last administered on 15:50; Start 05/15/17 at 20:42; Stop 05/15/17 at 20:43; Status DC Potassium Chloride (KCl) 30 meq ONCE ONCE PO Last administered on 05/16/17 11: 06; Start 05/16/17 at 09:00; Stop 05/16/17 at 09:01; Status DC Dexamethasone (Decadron) 40 mg ONCE ONCE PO ; Start 05/16/17 at 13:00; Stop 05/16 at 13:01; Status DC Potassium Chloride (KCl) 30 meq ONCE ONCE PO Last administered on 05/17/17 08: 57; Start 05/17/17 at 07:45; Stop 05/17/17 at 07:46; Status DC Potassium Chloride (KCl) 20 meq ONCE ONCE PO Last administered on 05/17/17 15: 00; Start 05/17/17 at 13:00; Stop 05/17/17 at 13:01; Status DC Granisetron HCl 1 mg 1 mg ONCE ONCE IV PUSH Last administered on 05/18/17 17: 02; Start 05/18/17 at 16:30; Stop 05/18/17 at 16:31; Status DC Dexamethasone Sodium Phosphate/ Sodium Chloride (Decadron Inj/NS Inj) 55 ml @ 220 mls/hr ONCE ONCE IV Last administered on 05/18/17 17:02; Start 05/18/17 at 16:30; Stop 05/18/17 at 16:44; Status DC Doxorubicin HCl 91 mg 91 mg ONCE ONCE IV PUSH Last administered on 05/18/17 17 :35; Start 05/18/17 at 17:00; Stop 05/18/17 at 17:01; Status DC Vincristine Sulfate 2 mg/ Sodium Chloride 52 ml @ 312 mls/hr ONCE ONCE IV Last administered on 05/18/17 17:50; Start 05/18/17 at 17:30; Stop 05/18/17 at 17: 39; Status DC Cyclophosphamide/ Sodium Chloride (Cytoxan Inj/NS 500 ml Inj) 500 ml @ 500 mls/ hr ONCE ONCE IV Last administered on 05/18/17 18:08; Start 05/18/17 at 18:00; Stop 05/18/17 at 18:59; Status DC Prednisone 91 mg 91 mg HS PO Last administered on 05/22/17 19:54; Start at 21:00; Stop 05/22/17 at 21:01; Status DC Sodium Chloride (NS 250 ml Inj) 250 ml @ 0 mls/hr ONCE ONCE IV Last administered on 05/18/17 17:00; Start 05/18/17 at 17:00; Stop 05/18/17 at 17:01; Status DC Warfarin Sodium (Coumadin) 1 mg DAILY@16 PO Last administered on 05/20/17 17:37 ; Start 05/19/17 at 16:00; Stop 05/21/17 at 12:42; Status DC Patient Medication Teaching (Coumadin Booklet) 1 ONCE ONCE OTHER Last administered on 05/19/17 16:00; Start 05/19/17 at 16:00; Stop 05/19/17 at 16:01; Status DC Warfarin Sodium 1 mg 1 mg NOW ONCE PO Last administered on 05/19/17 19:40; Start 05/19/17 at 19:45; Stop 05/19/17 at 19:46; Status DC Sodium Chloride (NS 250 ml Inj) 250 ml @ 15 mls/hr ONCE ONCE IV Last administered on 05/22/17 18:36; Start 05/20/17 at 10:00; Stop 05/21/17 at 02:39 ; Status DC Albuterol Sulfate (Ventolin Hfa Inh) 2 puff Q6HR INH ; Start 05/21/17 at 00:00 Warfarin Sodium (Coumadin) 2 mg DAILY@16 PO Last administered on 05/21/17 17: 27; Start 05/21/17 at 16:00; Stop 05/22/17 at 14:13; Status DC Epoetin Oleksandr (Epogen Inj) 10,000 units UNSCH PRN IV WITH DIALYSIS Last administered on 05/22/17 12:08; Start 05/21/17 at 18:30 Warfarin Sodium (Coumadin) 3 mg DAILY@16 PO Last administered on 8/11/17at 18: 35; Start 05/22/17 at 16:00; Stop 05/23/17 at 12:26; Status DC Warfarin Sodium (Coumadin) 4 mg DAILY@16 PO Last administered on 05/23/17 16: 37; Start 05/23/17 at 16:00 Sodium Chloride (NS Flush) 5 ml UNSCH PRN IV FLUSH SEE PROTOCOL TABLE; Start at 06:45 Heparin Sodium (Porcine) (Heparin Central Flush) 250 units UNSCH PRN IV FLUSH SEE PROTOCOL TABLE; Start 05/24/17 at 06:45 Heparin Sodium (Porcine) (Heparin Central Flush) 500 units UNSCH IV FLUSH ; Start 05/24/17 at 06:45 A/P Assessment and Plan A/P Acute Hypoxic Respiratory Failure-resolved --stable on RA Acute Submassive Pulmonary Embolism Right Heart Dysfunction Global severe left ventricular systolic dysfunction Cardiogenic Shock-resolved -- 2d echo 05/02: EF 30-35%, RV dysfunction with dilation --Repeat ECHO limited study scheduled on 05/09-RV function appears to have normalized, question of interatrial shunt for which cardiology consulted-d/w Dr. Taveras, recommended that once off anticoagulation, would need to be on ASA and require f/u echo periodically for evaluation. Acute Kidney Injury Hypokalemia-improved -- likely secondary to cardiogenic shock -HD initiated. - Nephrology following, Dr. Haley --Left IJ vas catheter, on hemodialysis --Hemodialysis per nephrology Hyperphosphatemia protein calorie malnutrition- severe Ileus -continue Phoslo -started on diet;special police officer following; recommendations noted- PEG was discussed with the patient which he declined- he states that his appetite is better now- calorie count to be repeated. --evaluated by General surgery and GI . -Expanded bowel regimen MiraLAX, lactulose. Large Cell B-cell lymphoma Pulmonary Embolism anemia of chronic disease C. difficile colitis -- hematology/oncology following Dr. Connelly-chemo with [facility] regimen initiated. -- continue heparin drip. continue coumadin-monitor PT/INR. -s/p PRBC transfusion/H/H stable. -Epogen with HD. --continue Flagyl and Vanco- plan for 14 days- evaluated by ID . continue PT. Prophylaxis: DVT: SCDs, heparin drip/coumadin Discharge Planning when INR is therapeutic and cleared by Nephrology. Catalina Eller MD May 24, 2017 07:49
[2017-05-24] MEDS: CHLORHEXIDINE 0.12% (ORAL KIT) 15 ML CUP MT SCH ×2 (08:00→20:00)
[2017-05-24 08:03] LABS: INTERNATIONAL NORMALIZED RATIO 1.3 RATIO; PROTHROMBIN TIME - PATIENT 14.7 SEC (9.8-11.6)
[2017-05-24 08:11] LABS: APTT (PATIENT) 112.5 SEC (24.3-30.1)
[2017-05-24] MEDS: NIFEdipine 90 MG SUSTAINED RELEASE TAB PO SCH (09:00)
[2017-05-24] MEDS: CALCIUM ACETATE 667 MG CAP PO SCH ×3 (09:50→18:27)
[2017-05-24] MEDS: PANTOPRAZOLE SODIUM 40 MG VIAL IV PUSH SCH (09:50)
[2017-05-24] MEDS: VANCOMYCIN 500 MG VIAL (FOR ORAL USE ONLY) PO SCH ×4 (09:51→21:58)
[2017-05-24] MEDS: ALLOPURINOL 100 MG TAB PO SCH (09:51)
[2017-05-24] MEDS: ARTIFICIAL TEARS OPTH OINT 3.5 APPLIC/3.5 GM TUBO EACH EYE SCH ×2 (10:00→18:00)
--- NOTE | 2017-05-24 10:02 | PD.ONC.PN ---
Subjective Subjective Remarks Afebrile overnight Patient complains of feeling weak and tired Denies pain Has no longer been having diarrhea Objective Data Date Time Temp Pulse Resp B/P Pulse Ox O2 Delivery O2 Flow Rate FiO2 05/24/17 08:00 97.0 76 14 122/74 97 05/24/17 04:00 96.2 79 16 100/58 96 05/24/17 00:00 96.1 73 16 120/75 97 05/23/17 21:00 79 05/23/17 20:00 97.0 77 16 117/72 98 05/23/17 16:00 96.5 80 14 112/70 97 05/23/17 12:00 69 05/23/17 12:00 96.3 71 14 129/79 97 05/24/17 05/24/17 05/24/17 07:00 15:00 23:00 Intake Total 240 ml Output Total 450 ml Balance -210 ml Result Diagram: 05/24/17 0600 05/21/17 0530 Laboratory Results Laboratory Tests Test 05/24/17 06:00 White Blood Count 4.5 TH/MM3 Red Blood Count 2.77 MIL/MM3 Hemoglobin 8.1 GM/DL Hematocrit 24.5 % Mean Corpuscular Volume 88.4 FL Mean Corpuscular Hemoglobin 29.2 PG Mean Corpuscular Hemoglobin 33.0 % Concent Red Cell Distribution Width 17.3 % Platelet Count 196 TH/MM3 Mean Platelet Volume 6.9 FL Neutrophils (%) (Auto) 92.6 % Lymphocytes (%) (Auto) 6.6 % Monocytes (%) (Auto) 0.6 % Eosinophils (%) (Auto) 0.1 % Basophils (%) (Auto) 0.1 % Neutrophils # (Auto) 4.2 TH/MM3 Lymphocytes # (Auto) 0.3 TH/MM3 Monocytes # (Auto) 0.0 TH/MM3 Eosinophils # (Auto) 0.0 TH/MM3 Basophils # (Auto) 0.0 TH/MM3 CBC Comment DIFF FINAL Differential Comment Prothrombin Time 14.7 SEC Prothromb Time International 1.3 RATIO Ratio Activated Partial 112.5 SEC Thromboplast Time Uric Acid 6.0 MG/DL Lactate Dehydrogenase 318 U/L Administered Medications Medications (Trade) Dose Ordered Sig/Shyla Route PRN Reason Start Time Stop Time Status Last Admin Dose Admin Sodium Chloride (NS Flush) 2 ml UNSCH PRN IV FLUSH FLUSH AFTER USING IV ACCESS 04/18/17 17:30 05/21/17 11:52 Hydralazine HCl (Apresoline Inj) 10 mg Q6HR PRN IV PUSH SBP>160, DBP>90 04/21/17 17:00 04/27/17 10:15 Nifedipine (Procardia Xl) 90 mg DAILY PO 04/28/17 09:00 05/24/17 09:00 Clonidine (Catapres) 0.1 mg Q6H PRN PO SBP>160, DBP>90 04/27/17 15:00 04/29/17 08:07 Ondansetron HCl (Zofran Inj) 4 mg Q6HR PRN IV PUSH NAUSEA OR VOMITING 04/30/17 11:30 05/07/17 10:06 Promethazine HCl (Phenergan Inj) 25 mg Q6H PRN IM NAUSEA OR VOMITING 04/30/17 11:30 05/01/17 13:27 Acetaminophen/ Hydrocodone Bitart ([place] 5-325 Mg) 1 tab Q6H PRN PO PAIN SCALE 1 TO 10 04/30/17 11:30 05/12/17 02:48 Chlorhexidine Gluconate 15 ml 15 ml BID@08,20 MT 05/02/17 20:00 05/20/17 20:00 Fentanyl Citrate 250 ml @ 0 mls/hr TITRATE IV 05/02/17 10:00 05/10/17 05:36 Propofol (Diprivan 1000 Mg/100ml Inj) 100 ml @ 0 mls/hr TITRATE IV 05/02/17 10:00 05/10/17 06:54 Miscellaneous Information Patient in critical care unit? Ass... [id number] .XX 05/02/17 17:15 05/02/17 17:30 Heparin Sodium/ Dextrose (Heparin-D5W Inj) 250 ml @ 0 mls/hr TITRATE IV 05/03/17 02:00 05/23/17 18:59 Calcium Acetate (Phoslo) 2,668 mg TID PO 05/03/17 09:00 05/24/17 09:50 Allopurinol (Zyloprim) 200 mg DAILY PO 05/06/17 09:00 05/24/17 09:51 Pantoprazole Sodium (Protonix Inj) 40 mg DAILY IV PUSH 05/07/17 12:00 05/24/17 09:50 Artificial Tears 1 applic 1 applic Q8H EACH EYE 05/07/17 18:00 05/19/17 10:00 Sodium Chloride (NS 1000 ml Inj) 1,000 ml @ 0 mls/hr TITRATE PRN IV WITH DIALYSIS 05/07/17 18:00 05/22/17 12:08 Heparin Sodium (Porcine) (Heparin Inj) Dwell Heparin to f... UNSCH PRN OTHER WITH DIALYSIS 05/07/17 18:00 05/22/17 12:09 Gentamicin Sulfate (Gentamicin (Dialysis) Inj) 10 mg UNSCH PRN OTHER WITH DIALYSIS 05/07/17 18:00 05/22/17 12:09 Metronidazole (Flagyl) 500 mg Q8HR PO 05/11/17 14:00 05/25/17 12:00 05/24/17 05:49 Vancomycin HCl (VANCOMYCIN for oral use only) 500 mg QID PO 05/13/17 13:00 05/25/17 23:00 05/24/17 09:51 Dronabinol (Marinol) 5 mg BID@11,16 PO 05/14/17 16:00 05/23/17 13:04 Epoetin Oleksandr (Epogen Inj) 10,000 units UNSCH PRN IV WITH DIALYSIS 05/21/17 18:30 05/22/17 12:08 Warfarin Sodium (Coumadin) 4 mg DAILY@16 PO 05/23/17 16:00 05/23/17 16:37 Objective Remarks GENERAL: Chronically ill appearing male, resting in bed watching TV in no distress SKIN: Warm and dry. Vas-cath, left neck. HEAD: Normocephalic. EYES: No injection or drainage. NECK: Supple, trachea midline. CARDIOVASCULAR: +S1/S2 RESPIRATORY: Breath sounds equal bilaterally. No accessory muscle use. GASTROINTESTINAL: Abdomen soft, non-tender, nondistended. EXTREMITIES: No cyanosis. Left upper extremity edema NEUROLOGICAL: awake and alert, normal speech. moving all extremities. Assessment/Plan Problem List: (1) Non-Hodgkin lymphoma Status: Acute Plan: --Has aggressive triple hit lymphoma. --Received Rituxan x1. --Neck adenopathy relatively stable. --05/18-->[facility] chemotherapy (2) Pulmonary emboli Status: Acute Plan: --on heparin gtt-->coumadin --CTA showed large PE --s/p tpa therapy on 05.02. now on heparin gtt. (3) ALDO (acute kidney injury) Status: Acute Plan: Renal function has not recovered. Remains on HD. Minimal urine output. (4) Normocytic anemia Status: Acute Plan: --multifactorial due to chronic disease, renal failure --monitor and transfuse as needed (5) C. difficile colitis Status: Acute Plan: --on PO Vanco Assessment 47y/o male admitted with pancreatitis, found to have NHL. Plan 1. Heparin on hold as APTT is elevated 2. INR is mildly increased to 1.3 today 3. Continue Coumadin at 4 mg by mouth daily 4. Will check another stool for C. difficile, patient states he has not had a bowel movement in 2 days Attending Statement The exam, history, and the medical decision-making described in the above note were completed with the assistance of the mid-level provider. I reviewed and agree with the findings presented. I attest that I had a [id number] encounter with the patient on the same day, and personally performed and documented my assessment and findings in the medical record. No complaints, no bleeding but also no interest in physical therapy. Pt do not even try to stand and sent PT away yesterday. Encourage to work with PT in safe environment. Problem Qualifiers (1) Non-Hodgkin lymphoma: Tia Montenegro May 24, 2017 10:02 Joanna Castellon MD May 24, 2017 22:43
[2017-05-24] MEDS: DRONABINOL 5 MG CAP PO SCH ×2 (12:24→18:27)
--- NOTE | 2017-05-24 12:55 | HHI.NPPN ---
Subjective History of Present Illness 47-year-old male with no known past medical history who came to the hospital with complaint of nausea, vomiting and abdominal pain on April 18. I was called to see the patient because of elevated BUN and creatinine. The patient had a creatinine of 1.3 on presentation which improved to 0.7 and 0.8, then started increasing for last few days. Additional Remarks Patient is alert, feeling better, no SOB, on room air. Objective Data Data 05/23/17 05/24/17 19:00 07:00 Intake Total 60 ml 480 ml Output Total 200 ml 600 ml Balance -140 ml -120 ml Intake Oral 60 ml 480 ml Output Urine Total 200 ml 600 ml # Voids 2 # Bowel Movements 0 Vital Signs Date Time Temp Pulse Resp B/P Pulse Ox O2 Delivery O2 Flow Rate FiO2 05/24/17 08:00 97.0 76 14 122/74 97 05/24/17 04:00 96.2 79 16 100/58 96 05/24/17 00:00 96.1 73 16 120/75 97 05/23/17 21:00 79 05/23/17 20:00 97.0 77 16 117/72 98 05/23/17 16:00 96.5 80 14 112/70 97 -: 05/24/17 0600 05/21/17 0530 Physical Exam General Appearance: Malnourished Eyes Eye Exam: Pupils Equal Throat Throat Exam: Oral Mucosa [place] & Moist Pulmonary Resp Exam: Crackles, Rhonchi, Decreased Bases, Diminished Breath Sounds, Poor Inspiratory Effort Cardiology CV Exam: Regular, Normal Sinus Rhythm Gastrointestinal/Abdomen GI Exam: Soft, Non-Tender, Bowel Sounds Present, Distended Extremeties Extremities Exam: Trace Edema Neurologic Neuro Exam: Awake Assessment/Plan Assessment Summary: ALDO/Acute Renal Failure Problem List: (1) Non-Hodgkin lymphoma Plan: Hematology following, need for chemotherapy in the future. (2) Adenopathy (3) Pleural effusion (4) Shortness of breath (5) Pulmonary emboli Plan: on anticoagulation. (6) Acute pancreatitis (7) ALDO (acute kidney injury) Plan: He has become dialysis dependent. Plan Still no signs of renal recovery. Monitor renal function and urine output. Avoid nephrotoxins. Multiple medical problems, alcohol induced pancreatitis. Follow the urine out put and BMP. Urine out put is improving. No new BMP. Follow BMP in AM, continue HD as needed. Watch for renal recovery. Problem Qualifiers (1) Non-Hodgkin lymphoma: (2) Acute pancreatitis: Qualified Code: K85.20 - Alcohol-induced acute pancreatitis, unspecified complication status Leonid Haley MD May 24, 2017 12:54
[2017-05-24 14:18] LABS: APTT (PATIENT) 24.3 SEC (24.3-30.1)
[2017-05-24] MEDS: WARFARIN SOD 4 MG TAB PO SCH (18:27)
[2017-05-24] MEDS: SODIUM CHLORIDE 0.9% FLUSH 10 ML FLUSH IV FLUSH PRN ×3 (21:18)
[2017-05-25] VITALS (11 sets, daily range): BP systolic 106–137; BP diastolic 65–86; PULSE 66–89; RESP 16–18; TEMP 96.4–98.4; O2SAT 97–99
[2017-05-25] MEDS: ALBUTEROL SULFATE 90 MCG/ACT HFA 18 GM INHALER INH SCH ×5 (00:48→18:00)
[2017-05-25] MEDS: ARTIFICIAL TEARS OPTH OINT 3.5 APPLIC/3.5 GM TUBO EACH EYE SCH ×3 (00:50→18:00)
[2017-05-25] MEDS: SODIUM CHLORIDE 0.9% FLUSH 10 ML FLUSH IV FLUSH PRN ×2 (03:50→03:51)
[2017-05-25 04:27] LABS: AUTOMATED NEUTROPHIL # 3.1 TH/MM3 (1.8-7.7); EOSINOPHIL % 0.9 % (0.0-4.0); LYMPHOCYTE # 0.4 TH/MM3 (1.0-4.8); MEAN CELL VOLUME 86.5 FL (80.0-100.0); MEAN CORPUSCULAR HEMOGLOBIN 30.1 PG (27.0-34.0); MEAN CORPUSCULAR HGB CONC 34.9 % (32.0-36.0); MONO % 0.7 % (0.0-8.0); NEUT % 87.4 % (16.0-70.0); PLATELET COUNT 158 TH/MM3 (150-450); RED BLOOD COUNT 2.41 MIL/MM3 (4.50-5.90); RED CELL DISTRIBUTION WIDTH 17.2 % (11.6-17.2); WHITE BLOOD COUNT 3.5 TH/MM3 (4.0-11.0)
[2017-05-25 04:30] LABS: APTT (PATIENT) 43.7 SEC (24.3-30.1); INTERNATIONAL NORMALIZED RATIO 1.4 RATIO; PROTHROMBIN TIME - PATIENT 16.2 SEC (9.8-11.6)
[2017-05-25 04:38] LABS: HEMATOCRIT 20.9 % (39.0-51.0); HEMO FLAGS DIFF FINAL
[2017-05-25 04:56] LABS: BICARBONATE 31.4 MEQ/L (21.0-32.0); POTASSIUM 3.3 MEQ/L (3.5-5.1)
[2017-05-25] MEDS: metroNIDAZOLE 500 MG TAB PO SCH (05:32)
[2017-05-25] MEDS: HEPARIN-D5W 25,000 U/250 ML 250 ML IV SCH (05:48)
[2017-05-25] MEDS: CHLORHEXIDINE 0.12% (ORAL KIT) 15 ML CUP MT SCH ×2 (08:00→20:00)
[2017-05-25 08:09] LABS: C. DIFF EPI 027 PRESUMPTIVE NEGATIVE (NEGATIVE)
[2017-05-25] MEDS: NIFEdipine 90 MG SUSTAINED RELEASE TAB PO SCH (09:00)
[2017-05-25] MEDS: CALCIUM ACETATE 667 MG CAP PO SCH ×3 (09:00→18:22)
[2017-05-25] MEDS: VANCOMYCIN 500 MG VIAL (FOR ORAL USE ONLY) PO SCH ×4 (09:00→21:09)
[2017-05-25 09:21] LABS: REVIEW FLAG FINAL
[2017-05-25] MEDS ORDERED: SODIUM CHLOR 0.9% 250 ML INJ 250 ML IV ONE (10:00)
[2017-05-25] MEDS: GENTAMICIN SULFATE (DIALYSIS USE ONLY) 20 MG/2 ML VIAL OTHER PRN (10:29)
[2017-05-25] MEDS: EPOETIN ALFA 10,000 UNITS/ML VIAL IV PRN (10:30)
[2017-05-25] MEDS: HEPARIN SODIUM - IV 10,000 UNITS/10 ML VIAL OTHER PRN (10:31)
--- NOTE | 2017-05-25 10:49 | HHI.PR ---
Subjective Remarks resting comfortably with no distress. denies pain. no new complaints. Objective Vitals Vital Signs Date Time Temp Pulse Resp B/P Pulse Ox O2 Delivery O2 Flow Rate FiO2 05/25/17 04:07 71 05/25/17 04:00 96.7 75 17 137/83 99 05/25/17 00:08 80 05/25/17 00:00 96.4 75 17 106/65 97 05/24/17 20:11 78 05/24/17 20:00 97.1 79 18 100/59 98 05/24/17 16:00 97.2 73 14 111/71 98 05/24/17 15:33 73 05/24/17 12:29 84 05/24/17 12:00 98.1 81 12 121/80 97 I/O 05/24/17 05/24/17 05/24/17 05/25/17 05/25/17 05/25/17 06:59 14:59 22:59 06:59 14:59 22:59 Intake Total 240 ml 358 ml 145 ml Output Total 450 ml 400 ml 100 ml 900 ml Balance -210 ml -42 ml -100 ml -755 ml Intake Oral 240 ml 358 ml IV Total 145 ml Output Urine Total 450 ml 400 ml 100 ml 900 ml # Bowel Movements 0 1 Result Diagram: 05/25/17 0840 05/25/17 0350 Imaging Last Impressions Chest X-Ray 05/21/17 0600 Signed Impressions: Service Date/Time: May 06:05 - CONCLUSION: Bibasilar opacities the majority represent effusion appreciated without posterior left lower lobe retrocardiac density consolidation atelectasis versus infiltrate there was underlying in the right medial base suggesting air fluid level the possibility of cavitary lesion with air-fluid level cannot be excluded. There is persistent mediastinal mass widening. Stanford Mcdonough MD Abdomen X-Ray 05/15/17 0600 Draft Impressions: Service Date/Time: Monday, May 15, 2017 04:29 - CONCLUSION: Findings of mild small bowel ileus. There has been no significant change when compared to the prior exam. Jadon Carroll MD Central Venous Line 05/15/17 0000 Signed Impressions: Service Date/Time: Monday, May 15, 2017 00:00 - CONCLUSION: Uncomplicated catheter removal. Bryon Calero Jr., MD Catheter Placement X-Ray 05/15/17 0000 Signed Impressions: Service Date/Time: Monday, May 15, 2017 15:13 - CONCLUSION: Mild narrowing involving the brachiocephalic vein near its junction with the SVC. This is not flow limiting. A left-sided vas catheter was placed. Bryon Calero Jr., MD Abdomen/Pelvis CT 05/09/17 0000 Signed Impressions: Service Date/Time: Tuesday, May 09, 2017 21:16 - CONCLUSION: 1. Diffusely distended loops of small bowel down to the cecum suggest ileus. 2. Evidence of mesenteric and retroperitoneal adenopathy. 3. Large bilateral pleural effusions , moderate amount of free fluid in the pelvis and mild ascites in the upper abdomen. 4. Abnormal appearance to the parenchyma of the right kidney with patchy areas of hyperdensity in a mosaic pattern. This of uncertain significance. The patient had iodinated contrast for a CT pulmonary angiogram 7 days ago; this could potentially represent residual parenchymal contrast which would be nonspecific, but raises the possibility of either obstruction or renal infarctions. Bryon Evans MD Renal Ultrasound 05/05/17 0000 Signed Impressions: Service Date/Time: Friday, May 05, 2017 20:06 - CONCLUSION: 1. Kidneys are borderline echogenic which can be seen with medical renal disease. 2. No evidence of hydronephrosis. 3. Abdominal ascites. 4. Multiple dilated bowel loops. 5. Bilateral pleural effusions. Tray Patel MD Head CT 05/03/17 0000 Signed Impressions: Service Date/Time: Wednesday, May 03, 2017 17:22 - CONCLUSION: No acute intracranial disease. No hemorrhage seen. Tray Patel MD CT Angiography 05/02/17 0000 Signed Impressions: Service Date/Time: Tuesday, May 02, 2017 11:10 - CONCLUSION: 1. There is pulmonary embolus in the right pulmonary artery, right upper lobe and lower lobe branches. 2. Resorption of previously seen gas in the left axilla with fluid collection at this site with postprocedural change and possibly postprocedural hemorrhage not significantly changed in size. 3. Interval development of right lung airspace process may represent postobstructive pneumonia and there is mucus within the trachea not present yesterday. 4. Right pleural effusion is smaller and left pleural effusion is larger. 5. No change in bulky adenopathy. Leonor Chavez MD Upper Extremity Ultrasound 04/30/17 0000 Signed Impressions: Service Date/Time: April 12:25 - CONCLUSION: There some superficial thrombosis of a vein in the forearm. The deep venous system is patent. Large fluid collection left axilla. Significant soft tissue edema throughout the upper arm. Rinku Hillman MD Thoracentesis Ultrasound 04/30/17 0000 Signed Impressions: Service Date/Time: April 12:14 - CONCLUSION: Uncomplicated ultrasound guided thoracentesis. Tray Patel MD Port Line Insertion 04/27/17 0000 Signed Impressions: Service Date/Time: Thursday, April 27, 2017 14:56 - CONCLUSION: 1. Bulky bilateral lower cervical lymphadenopathy. 2. Uncomplicated ultrasound and fluoroscopic guided implanted central venous port catheter placement as described in detail above. An 8 [employer] port was placed. Liang Peralta MD Bone Biopsy CT 04/27/17 0000 Signed Impressions: Service Date/Time: Thursday, April 27, 2017 16:22 - CONCLUSION: 1. Uncomplicated CT guided bone marrow aspirate. 2. Uncomplicated CT guided bone marrow biopsy. Tray Patel MD Chest CT 04/25/17 0000 Signed Impressions: Service Date/Time: Wednesday, April 26, 2017 19:00 - CONCLUSION: The right pleural effusion is slightly larger on the left side has not changed. Extensive bulky adenopathy as before and malignancies such as lymphoma is suspected. Leonor Chavez MD Gall Bladder Ultrasound 04/22/17 0000 Signed Impressions: Service Date/Time: Saturday, April 22, 2017 07:35 - CONCLUSION: Small liver with focal abdomen only incompletely evaluated. Large right pleural effusion. effusion. Kirk Briceño MD FACR Abdomen CT 04/20/17 0000 Signed Impressions: Service Date/Time: Thursday, April 20, 2017 19:40 - CONCLUSION: Limited exam because of lack of intravenous contrast. Lymphoma is suspected. Pathological diagnosis could be obtained with ultrasound biopsy of the cervical, axillary or inguinal adenopathy. Kirk Briceño MD FACR Objective Remarks GENERAL: in no acute distress CARDIOVASCULAR: Regular rate and regular rhythm without murmurs, gallops, or rubs. RESPIRATORY: Clear to auscultation. Breath sounds equal bilaterally. No wheezes , rales, or rhonchi. GASTROINTESTINAL: Abdomen soft, non-tender, nondistended. Normal, active bowel sounds MUSCULOSKELETAL: Extremities without clubbing, cyanosis, or edema. NEURO: awake and alert Procedures 04/[address] excision biopsy 04/27- port placement 05/02-TPA 05/06-left IJ Vas-Cath placement endotracheal intubation Medications and IVs Current Medications Ondansetron HCl 4 mg 4 mg ONCE ONCE IVP Last administered on 04/18/17 17:38; Start 04/18/17 at 17:30; Stop 04/18/17 at 17:31; Status DC Sodium Chloride (NS 1000 ml Inj) 1,000 ml @ 1,000 mls/hr Q1H IV Last administered on 04/18/17 17:38; Start 04/18/17 at 17:16; Stop 04/18/17 at 18:15; Status DC Sodium Chloride 2 ml 2 ml UNSCH PRN IV FLUSH FLUSH AFTER USING IV ACCESS Last administered on 05/24/17 21:18; Start 04/18/17 at 17:30 Sodium Chloride 1,000 ml @ 1,000 mls/hr Q1H IV Last administered on 04/18/17 18:40; Start 04/18/17 at 18:37; Stop 04/18/17 at 19:36; Status DC Potassium Chloride (KCl 20 Meq Premix Inj) 100 ml @ 50 mls/hr Q2H IV Last administered on 04/18/17 22:12; Start 04/18/17 at 19:00; Stop 04/18/17 at 22:59; Status DC Ondansetron HCl (Zofran Inj) 4 mg Q6H PRN IVP NAUSEA OR VOMITING Last administered on 04/26/17 06:04; Start 04/18/17 at 19:30; Stop 04/26/17 at 13:02 ; Status DC Morphine Sulfate (Morphine Inj) 2 mg Q3H PRN IV Pain 3-5; if unable to take PO ; Start 04/18/17 at 19:30; Status Cancel Morphine Sulfate (Morphine Inj) 4 mg Q3H PRN IV Pain 6-10;if unable to take PO ; Start 04/18/17 at 19:30; Status Cancel Naloxone HCl (Narcan Inj) 0.4 mg UNSCH PRN IV SEE LABEL COMMENTS; Start at 19:30 Senna/Docusate Sodium (Porsha-Colace) 1 tab BID PO Last administered on 07:52; Start 04/18/17 at 21:00; Stop 05/13/17 at 17:16; Status DC Magnesium Hydroxide (Milk Of Magnesia Liq) 30 ml Q12H PRN PO MILD - MODERATE CONSTIPATION Last administered on 05/09/17 08:01; Start 04/18/17 at 19:30; Stop 05/13/17 at 17:16; Status DC Sennosides (Senokot) 17.2 mg Q12H PRN PO MODERATE - SEVERE CONSTIPATION; Start 04/18/17 at 19:30; Stop 05/13/17 at 17:16; Status DC Bisacodyl (Dulcolax Supp) 10 mg DAILY PRN RECTAL SEVERE CONSITIPATION; Start at 19:30; Stop 05/13/17 at 17:16; Status DC Lactulose 30 ml 30 ml DAILY PRN PO SEVERE CONSITIPATION; Start 04/18/17 at 19:30 ; Stop 05/13/17 at 17:16; Status DC Potassium Chloride/Sodium Chloride 1,000 ml @ 125 mls/hr Q8H IV ; Start at 21:00; Stop 04/18/17 at 21:00; Status DC Potassium Chloride/Sodium Chloride 1,000 ml @ 83 mls/hr Q12H3M IV Last administered on 04/23/17 01:19; Start 04/19/17 at 02:00; Stop 04/23/17 at 09:04 ; Status DC Sodium Chloride (NS 1000 ml Inj) 1,000 ml @ 125 mls/hr Q8H IV Last administered on 04/18/17 20:00; Start 04/18/17 at 20:00; Stop 04/19/17 at 16:01; Status DC Pneumococcal Polyvalent Vaccine 25 mcg 25 mcg ONCE ONCE IM Last administered on 04/19/17 11:20; Start 04/19/17 at 09:00; Stop 04/19/17 at 09:01; Status DC Ceftriaxone Sodium/Sodium Chloride (Rocephin Inj/NS Inj) 100 ml @ 200 mls/hr Q24H IV Last administered on 04/24/17 12:51; Start 04/19/17 at 13:00; Stop at 14:33; Status DC Heparin Sodium (Porcine) (Heparin Inj) 5,000 units Q8HR SQ Last administered on 05/02/17 12:46; Start 04/19/17 at 14:00; Stop 05/19/17 at 10:23; Status DC Azithromycin (Zithromax) 500 mg Q24H PO Last administered on 04/24/17 12:51; Start 04/19/17 at 13:00; Stop 04/24/17 at 14:33; Status DC Clonidine (Catapres) 0.1 mg ONCE ONCE PO Last administered on 04/20/17 22:16 ; Start 04/20/17 at 21:45; Stop 04/20/17 at 21:46; Status DC Nifedipine (Procardia Xl) 30 mg DAILY PO Last administered on 04/25/17 09:42; Start 04/21/17 at 17:00; Stop 04/25/17 at 13:12; Status DC Hydralazine HCl 10 mg 10 mg Q6HR PRN IV PUSH SBP>160, DBP>90 Last administered on 04/27/17 10:15; Start 04/21/17 at 17:00 Cefazolin Sodium/ Sodium Chloride (Ancef Inj/NS Inj) 100 ml @ 200 mls/hr MOLDING PLASTERER IV ; Start 04/21/17 at 21:30; Stop 04/24/17 at 21:29; Status DC Midazolam HCl (Versed Inj) 2 mg STK-MED ONCE .ROUTE Last administered on 09:02; Start 04/22/17 at 09:02; Stop 04/22/17 at 09:03; Status DC Bupivacaine HCl/ Epinephrine Bitart (Sensorcaine-Epi 0.5% 50 ml Inj) 50 ml STK- MED ONCE INFIL ; Start 04/22/17 at 09:25; Stop 04/22/17 at 09:26; Status Cancel Albuterol Sulfate (*ALBUTEROL NEB PERIprocedure ONLY) 2.5 mg STK-MED ONCE NEB Last administered on 04/22/17 10:06; Start 04/22/17 at 10:06; Stop 04/22/17 at 10:07; Status DC Fentanyl Citrate (fentaNYL INJ) 200 mcg STK-MED ONCE .ROUTE ; Start 04/22/17 at 10:10; Stop 04/22/17 at 10:11; Status DC Bupivacaine HCl (Marcaine Pf 0.5% Inj) 30 ml STK-MED ONCE INFIL Last administered on 04/22/17 09:25; Start 04/22/17 at 09:25; Stop 04/22/17 at 10:49 ; Status DC Miscellaneous Information ALL NURSING DEPARTME... UNSCH PRN .XX SEE LABEL COMMENTS; Start 04/22/17 at 10:01; Stop 04/23/17 at 10:00; Status DC Dextrose/Sodium Chloride 1,000 ml @ 60 mls/hr [id number] IV Last administered on 04/24/17 06:40; Start 04/23/17 at 12:45; Stop 04/24/17 at 14:36; Status DC Potassium Chloride/Dextrose/ Sodium Chloride (KCl Inj/D5W-NS 1000 ml Inj) 1,015 ml @ 70 mls/hr [id number] IV Last administered on 04/25/17 05:34; Start at 16:00; Stop 04/25/17 at 13:12; Status DC Promethazine HCl (Phenergan Inj) 25 mg ONCE ONCE IM Last administered on 11:55; Start 04/25/17 at 08:00; Stop 04/25/17 at 08:01; Status DC Nifedipine 60 mg 60 mg DAILY PO Last administered on 04/27/17 10:02; Start at 09:00; Stop 04/27/17 at 14:48; Status DC Potassium Chloride/Dextrose/ Sodium Chloride (KCl Inj/D5W-NS 1000 ml Inj) 1,015 ml @ 60 mls/hr [id number] IV Last administered on 04/27/17 18:18; Start at 15:00; Stop 04/28/17 at 11:49; Status DC Promethazine HCl (Phenergan Inj) 12.5 mg Q8H PRN IM PERSISTENT NAUSEA Last administered on 04/30/17 04:34; Start 04/26/17 at 13:15; Stop 04/30/17 at 11:28 ; Status DC Allopurinol 300 mg 300 mg DAILY PO Last administered on 05/05/17 08:12; Start 04/27/17 at 09:00; Stop 05/05/17 at 12:10; Status DC Vancomycin HCl 1000 mg/Sodium Chloride 250 ml @ 250 mls/hr MOLDING PLASTERER IV Last administered on 04/27/17 13:49; Start 04/27/17 at 10:00; Stop 04/30/17 at 09:59 ; Status DC Cefazolin Sodium/ Dextrose (Ancef 2 Gm Premix) 50 ml @ 100 mls/hr MOLDING PLASTERER IV Last administered on 04/27/17 15:42; Start 04/27/17 at 10:00; Stop 04/30/17 at 09:59; Status DC Nifedipine (Procardia Xl) 90 mg DAILY PO Last administered on 05/24/17 09:00; Start 04/28/17 at 09:00 Clonidine (Catapres) 0.1 mg Q12HR PO ; Start 04/27/17 at 21:00; Status UNV Clonidine (Catapres) 0.1 mg Q6H PRN PO SBP>160, DBP>90 Last administered on 08:07; Start 04/27/17 at 15:00 Heparin Sodium (Porcine) (*HEPARIN CENTRAL FLUSH PERIprocedural ONLY) 500 units STK-MED ONCE IV FLUSH Last administered on 04/27/17 14:51; Start 04/27/17 at 14:51; Stop 04/27/17 at 14:52; Status DC Lidocaine/ Epinephrine (Xylocaine-Epi 1%-1:100,000 Inj) 20 ml STK-MED ONCE .ROUTE Last administered on 04/27/17 14:51; Start 04/27/17 at 14:51; Stop at 14:52; Status DC Midazolam HCl (Versed Inj) 5 mg STK-MED ONCE .ROUTE Last administered on 14:52; Start 04/27/17 at 14:52; Stop 04/27/17 at 14:53; Status DC Fentanyl Citrate 250 mcg 250 mcg STK-MED ONCE .ROUTE Last administered on 14:53; Start 04/27/17 at 14:53; Stop 04/27/17 at 14:54; Status DC Sodium Chloride (NS 1000 ml Inj) 1,000 ml @ 100 mls/hr Q10H IV Last administered on 04/29/17 17:55; Start 04/29/17 at 15:00; Stop 04/30/17 at 00:59 ; Status DC Acetaminophen (Tylenol) 650 mg ONCE ONCE PO Last administered on 04/30/17 16: 44; Start 04/30/17 at 13:00; Stop 04/30/17 at 13:01; Status DC Diphenhydramine HCl 50 mg 50 mg ONCE ONCE PO Last administered on 04/30/17 16 :43; Start 04/30/17 at 13:00; Stop 04/30/17 at 13:01; Status DC Rituximab/Sodium Chloride (Rituxan Inj/NS 500 ml Inj) 571.625 ml @ 0 mls/hr ONCE ONCE IV Last administered on 05/01/17 13:15; Start 04/30/17 at 14:00; Stop 04/30/17 at 14:01; Status DC Prednisone 115 mg 115 mg Q12H PO ; Start 04/30/17 at 13:00; Stop 05/01/17 at 11: 21; Status DC Dexamethasone Sodium Phosphate 20 mg/Granisetron HCl 1 mg/Sodium Chloride 56 ml @ 224 mls/hr Q24H IV ; Start 04/30/17 at 15:00; Stop 05/01/17 at 11:26; Status DC Potassium Chloride 100 ml @ 50 mls/hr BOLUS ONCE IV Last administered on 04/30 10:20; Start 04/30/17 at 10:00; Stop 04/30/17 at 11:59; Status DC Etoposide 95.5 mg/ Doxorubicin HCl 19.1 mg/ Vincristine Sulfate 0.764 mg/ Sodium Chloride 515.089 ml @ 21.462 mls/hr Q24H IV ; Start 04/30/17 at 15:00; Stop 05/18/17 at 13:46; Status DC Cyclophosphamide/ Sodium Chloride (Cytoxan Inj/NS 500 ml Inj) 500 ml @ 500 mls/ hr ONCE ONCE IV ; Start 05/04/17 at 14:00; Stop 05/04/17 at 14:59; Status DC Ondansetron HCl (Zofran Inj) 4 mg Q6HR PRN IV PUSH NAUSEA OR VOMITING Last administered on 05/07/17 10:06; Start 04/30/17 at 11:30 Promethazine HCl (Phenergan Inj) 25 mg Q6H PRN IM NAUSEA OR VOMITING Last administered on 05/01/17 13:27; Start 04/30/17 at 11:30 Acetaminophen/ Hydrocodone Bitart ([place] 5-325 Mg) 1 tab Q6H PRN PO PAIN SCALE 1 TO 10 Last administered on 05/12/17 02:48; Start 04/30/17 at 11:30 Albuterol/ Ipratropium (Duoneb Neb) 1 ampule ONCE ONCE NEB Last administered on 04/30/17 20:16; Start 04/30/17 at 19:45; Stop 04/30/17 at 20:11; Status DC Albuterol/ Ipratropium (Duoneb Neb) 1 ampule Q2HR NEB PRN NEB sob, wheeze; Start 04/30/17 at 20:45; Stop 05/02/17 at 10:14; Status DC Morphine Sulfate (Morphine Inj) 2 mg ONCE ONCE IV PUSH Last administered on 23:36; Start 04/30/17 at 23:30; Stop 04/30/17 at 23:31; Status DC Furosemide (Lasix Inj) 10 mg ONCE ONCE IV PUSH Last administered on 05/01/17 01:01; Start 05/01/17 at 00:00; Stop 05/01/17 at 00:01; Status DC Furosemide (Lasix Inj) 20 mg ONCE ONCE IV PUSH Last administered on 05/01/17 09:09; Start 05/01/17 at 07:45; Stop 05/01/17 at 07:52; Status DC Acetaminophen (Tylenol) 650 mg NOW ONCE PO Last administered on 05/01/17 10: 51; Start 05/01/17 at 10:45; Stop 05/01/17 at 10:46; Status DC Diphenhydramine HCl 50 mg 50 mg NOW ONCE PO Last administered on 05/01/17 10: 51; Start 05/01/17 at 10:45; Stop 05/01/17 at 10:46; Status DC Rituximab/Sodium Chloride (Rituxan Inj/NS 500 ml Inj) 571.625 ml @ 0 mls/hr ONCE ONCE IV ; Start 05/01/17 at 12:00; Stop 05/01/17 at 12:01; Status DC Acetaminophen (Tylenol) 650 mg ONCE ONCE PO ; Start 05/01/17 at 11:30; Stop at 11:31; Status DC Diphenhydramine HCl (Benadryl) 50 mg ONCE ONCE PO ; Start 05/01/17 at 11:30; Stop 05/01/17 at 11:31; Status DC Prednisone 115 mg 115 mg Q12HR PO Last administered on 05/02/17 20:08; Start 05/01/17 at 11:00; Stop 05/05/17 at 21:01; Status DC Dexamethasone Sodium Phosphate/ Granisetron HCl/ Sodium Chloride (Decadron Inj/ Kytril Inj/NS Inj) 56 ml @ 224 mls/hr Q24H IV ; Start 05/01/17 at 11:30; Stop 05/06/17 at 11:44; Status DC Metoclopramide HCl (Reglan Inj) 10 mg Q8HR IV PUSH Last administered on 04:59; Start 05/01/17 at 15:30; Stop 05/09/17 at 19:03; Status DC Pantoprazole Sodium (Protonix) 40 mg DAILY PO Last administered on 05/06/17 08 :17; Start 05/01/17 at 16:00; Stop 05/07/17 at 11:49; Status DC Furosemide (Lasix Inj) 20 mg ONCE ONCE IV PUSH Last administered on 05/01/17 16:14; Start 05/01/17 at 15:30; Stop 05/01/17 at 15:31; Status DC Albuterol/ Ipratropium (Duoneb Neb) 1 ampule BID NEB INH Last administered on 05/02/17 07:47; Start 05/01/17 at 20:00; Stop 05/02/17 at 10:18; Status DC Furosemide (Lasix Inj) 20 mg STAT ONCE IV PUSH Last administered on 05/02/17 08:40; Start 05/02/17 at 08:30; Stop 05/02/17 at 08:37; Status DC Etomidate (Amidate Inj) 20 mg STK-MED ONCE .ROUTE Last administered on 12:48; Start 05/02/17 at 09:23; Stop 05/02/17 at 09:24; Status DC Dextrose (D50w (Vial) Inj) 25 ml UNSCH PRN IV PUSH HYPOGLYCEMIA-SEE COMMENTS; Start 05/02/17 at 10:00; Stop 05/16/17 at 08:09; Status DC Insulin Human Regular (NovoLIN R SUPPLEMENTAL SCALE) 1 Q6HR SQ Last administered on 05/04/17 18:00; Start 05/02/17 at 12:00; Stop 05/16/17 at 08:09 ; Status DC Chlorhexidine Gluconate (Peridex 0.12% Liq) 15 ml BID@08,20 MT Last administered on 05/20/17 20:00; Start 05/02/17 at 20:00 Magnesium Oxide 800 mg 800 mg UNSCH PRN PO For Magnesium 1.2 - 1.6 mg/dL; Start 05/02/17 at 10:00; Stop 05/03/17 at 13:51; Status DC Magnesium Sulfate 4 gm/Sodium Chloride 100 ml @ 50 mls/hr UNSCH PRN IV For Magnesium 0.9 - 1.1 mg/dL; Start 05/02/17 at 10:00; Stop 05/03/17 at 13:51; Status DC Magnesium Sulfate 2 gm/Sodium Chloride 100 ml @ 50 mls/hr UNSCH PRN IV For Magnesium 1.2 - 1.6 mg/dL; Start 05/02/17 at 10:00; Stop 05/03/17 at 13:51; Status DC Potassium Chloride 100 ml @ 50 mls/hr Q2H PRN IV For Potassium 2.8 - 3.2 mEq/L ; Start 05/02/17 at 10:00; Stop 05/03/17 at 13:51; Status DC Potassium Chloride 100 ml @ 50 mls/hr Q2H PRN IV For Potassium 3.3 - 3.5 mEq/L ; Start 05/02/17 at 10:00; Stop 05/03/17 at 13:51; Status DC Potassium Chloride 100 ml @ 50 mls/hr Q2H PRN IV For Potassium 2.8 - 3.2 mEq/L ; Start 05/02/17 at 10:00; Stop 05/03/17 at 13:51; Status DC Potassium Chloride (KCl 40 Meq Premix Inj) 100 ml @ 25 mls/hr UNSCH PRN IV For Potassium 3.3 - 3.5 mEq/L; Start 05/02/17 at 10:00; Stop 05/03/17 at 13:51; Status DC Potassium Phosphate (K-Phos) 2,000 mg Q4H PRN PO For Phosphorus < 2.5 mg/dL; Start 05/02/17 at 10:00; Stop 05/03/17 at 13:51; Status DC Potassium Phosphate 2000 mg 2,000 mg UNSCH PRN PO/TUBE SEE LABEL COMMENTS; Start 05/02/17 at 10:00; Stop 05/03/17 at 13:51; Status DC Potassium Phosphate 30 mmol/ Sodium Chloride 260 ml @ 42 mls/hr UNSCH PRN IV SEE LABEL COMMENTS; Start 05/02/17 at 10:00; Stop 05/03/17 at 13:52; Status DC Sodium Phosphate/ Sodium Chloride (Sodium Phosphate Inj/NS 250 ml Inj) 250 ml @ 42 mls/hr UNSCH PRN IV For Phosphorus < 2.5 mg/dL; Start 05/02/17 at 10:00; Stop 05/03/17 at 13:52; Status DC Albuterol/ Ipratropium (Duoneb Neb) 1 ampule Q6HR NEB INH Last administered on 05/06/17 03:23; Start 05/02/17 at 10:00; Stop 05/06/17 at 10:00; Status DC Albuterol/ Ipratropium 1 ampule 1 ampule Q2HR NEB PRN INH WHEEZING Last administered on 05/08/17 08:08; Start 05/02/17 at 10:00 Fentanyl Citrate 250 ml @ 0 mls/hr TITRATE IV Last administered on 05/10/17 05 :36; Start 05/02/17 at 10:00 Propofol (Diprivan 1000 Mg/100ml Inj) 100 ml @ 0 mls/hr TITRATE IV Last administered on 05/10/17 06:54; Start 05/02/17 at 10:00 Iohexol 75 ml 75 ml STK-MED ONCE IV Last administered on 05/02/17 11:31; Start 05/02/17 at 11:31; Stop 05/02/17 at 11:32; Status DC Cefepime HCl 2000 mg/Sodium Chloride 100 ml @ 200 mls/hr Q12H IV Last administered on 05/05/17 02:43; Start 05/02/17 at 15:00; Stop 05/05/17 at 11:53 ; Status DC Vancomycin HCl/ Sodium Chloride (Vancomycin Inj/ NS 250 ml Inj) 250 ml @ 250 mls/hr ONCE ONCE IV Last administered on 05/02/17 16:14; Start 05/02/17 at 15 :00; Stop 05/02/17 at 15:59; Status DC Heparin Sodium (Porcine) (Heparin Inj) 5,000 units ONCE ONCE IV Last administered on 05/02/17 15:35; Start 05/02/17 at 16:00; Stop 05/02/17 at 16:01 ; Status DC Miscellaneous Information Patient in critical care unit? Ass... [id number] .XX Last administered on 05/02/17 17:30; Start 05/02/17 at 17:15 Chlorhexidine Gluconate (Chlorhexidine 2% Cloth) 3 pack DAILY@04 TOPICAL Last administered on 05/07/17 03:45; Start 05/03/17 at 04:00; Stop 05/07/17 at 04:01 ; Status DC Chlorhexidine Gluconate 3 pack 3 pack UNSCH PRN TOPICAL HYGIENIC CARE; Start at 17:15; Stop 05/07/17 at 17:08; Status DC Alteplase, Recombinant/ Syringe / Bag (Activase Drip/ Syringe/Bag) 49.9999 ml @ 50 mls/hr ONCE ONCE IV Last administered on 05/02/17 19:58; Start 05/02/17 at 19:15; Stop 05/02/17 at 20:14; Status DC Sodium Chloride (NS Inj) 30 ml ONCE ONCE IVF Last administered on 05/02/17 19 :15; Start 05/02/17 at 19:15; Stop 05/02/17 at 19:28; Status DC Miscellaneous Medication Thrombolysis plan for submass... ONCE ONCE OTHER Last administered on 05/02/17 19:15; Start 05/02/17 at 19:15; Stop 05/02/17 at 19:28; Status DC Heparin Sodium/ Dextrose 250 ml @ 0 mls/hr TITRATE IV Last administered on 05/25 05:48; Start 05/03/17 at 02:00 Epinephrine HCl/ Dextrose (Adrenalin (1:1000) Inj/D5W Inj) 250 ml @ 30 mls/hr TITRATE IV Last administered on 05/04/17 09:43; Start 05/03/17 at 10:15; Stop 05/07/17 at 16:44; Status DC Calcium Acetate 2668 mg 2,668 mg TID PO Last administered on 05/24/17 18:27; Start 05/03/17 at 09:00 Epoprostenol Sodium/Sodium Chloride (Flolan (30,000 Ng/ml) Neb/NS Inj) 100 ml @ 8 mls/hr Q8H NEB Last administered on 05/04/17 00:17; Start 05/03/17 at 09:00 ; Stop 05/04/17 at 14:14; Status DC Lidocaine HCl 50 ml 50 ml STK-MED ONCE .ROUTE ; Start 05/03/17 at 12:21; Stop at 12:22; Status DC Epoprostenol Sodium 40 ml/ Sodium Chloride 100 ml @ 8 mls/hr Q8H NEB Last administered on 05/06/17 06:04; Start 05/04/17 at 15:00; Stop 05/06/17 at 12:43 ; Status DC Calcium Gluconate 2 gm/Dextrose 120 ml @ 120 mls/hr ONCE ONCE IV Last administered on 05/04/17 20:00; Start 05/04/17 at 20:00; Stop 05/04/17 at 20:59 ; Status DC Cefepime HCl/ Sodium Chloride (Maxipime Inj/NS Inj) 100 ml @ 200 mls/hr Q24H IV Last administered on 05/08/17 01:36; Start 05/06/17 at 03:00; Stop at 23:00; Status DC Allopurinol (Zyloprim) 200 mg DAILY PO Last administered on 05/24/17 09:51; Start 05/06/17 at 09:00 Artificial Tears (Tears Naturale Opth Soln) 1 drop Q8H EACH EYE Last administered on 05/07/17 10:06; Start 05/05/17 at 18:00; Stop 05/07/17 at 12:11 ; Status DC Fentanyl Citrate (fentaNYL INJ) 100 mcg STK-MED ONCE IV ; Start 04/22/17 at 12: 00; Stop 05/06/17 at 12:46; Status DC Propofol (Diprivan 200 Mg/20 ml Inj) 200 mg STK-MED ONCE IV ; Start 04/22/17 at 12:00; Stop 05/06/17 at 12:46; Status DC Phenylephrine HCl (Neosynephrine/ NS 1000 Mcg/10ml Syr) 1,000 mcg STK-MED ONCE IV ; Start 04/22/17 at 12:00; Stop 05/06/17 at 12:47; Status DC Ondansetron HCl (Zofran Inj) 4 mg STK-MED ONCE IV PUSH ; Start 04/22/17 at 12:00 ; Stop 05/06/17 at 12:47; Status DC Pantoprazole Sodium (Protonix Inj) 40 mg DAILY IV PUSH Last administered on 09:50; Start 05/07/17 at 12:00 Artificial Tears 1 applic 1 applic Q8H EACH EYE Last administered on 05/19/17 10:00; Start 05/07/17 at 18:00 Sodium Chloride (NS 1000 ml Inj) 1,000 ml @ 0 mls/hr TITRATE PRN IV WITH DIALYSIS Last administered on 05/22/17 12:08; Start 05/07/17 at 18:00 Heparin Sodium (Porcine) 8000 units 8,000 units UNSCH PRN IV FLUSH WITH DIALYSIS; Start 05/07/17 at 18:00 Sodium Chloride 1,000 ml @ 200 mls/hr Q5H PRN IV WITH DIALYSIS Last administered on 05/25/17 10:29; Start 05/07/17 at 18:00 Sodium Chloride (NS 250 ml Inj) 200 ml @ 0 mls/hr UNSCH PRN IV WITH DIALYSIS; Start 05/07/17 at 18:00 Mannitol (Mannitol Inj) 12.5 gm UNSCH PRN IV WITH DIALYSIS; Start 05/07/17 at 18:00 Albumin Human (Albumin 25% Inj) 25 gm UNSCH PRN IV WITH DIALYSIS; Start at 18:00 Sodium Chloride (NS Flush) 5 ml UNSCH PRN IV FLUSH WITH DIALYSIS Last administered on 05/25/17 03:50; Start 05/07/17 at 18:00 Heparin Sodium (Porcine) (Heparin Inj) Dwell Heparin to f... UNSCH PRN OTHER WITH DIALYSIS Last administered on 05/25/17 10:31; Start 05/07/17 at 18:00 Gentamicin Sulfate (Gentamicin (Dialysis) Inj) 10 mg UNSCH PRN OTHER WITH DIALYSIS Last administered on 05/25/17 10:29; Start 05/07/17 at 18:00 Gelatin (Gelfoam 12 Mm/7 Mm Top) 1 foam UNSCH PRN TOPICAL WITH DIALYSIS; Start 05/07/17 at 18:00 Ondansetron HCl (Zofran Inj) 4 mg UNSCH PRN IV NAUSEA OR VOMITING; Start at 18:00 Acetaminophen (Tylenol) 650 mg UNSCH X1 PRN PO WITH DIALYSIS Last administered on 05/08/17 10:07; Start 05/07/17 at 18:00; Stop 05/14/17 at 17:59; Status DC Diphenhydramine HCl (Benadryl) 25 mg UNSCH PRN PO WITH DIALYSIS; Start at 18:00 Nitroglycerin (Nitrostat Sl) 0.4 mg UNSCH PRN SL WITH DIALYSIS; Start 05/07/17 at 18:00 Clonidine (Catapres) 0.1 mg UNSCH PRN PO WITH DIALYSIS; Start 05/07/17 at 18:00 Polyethylene Glycol (Miralax) 17 gm DAILY PO Last administered on 05/10/17 07: 52; Start 05/08/17 at 09:00; Stop 05/13/17 at 17:16; Status DC Lactulose (Lactulose Liq) 30 ml BID PO Last administered on 05/10/17 07:51; Start 05/08/17 at 09:00; Stop 05/13/17 at 17:16; Status DC Bisacodyl (Dulcolax Supp) 10 mg DAILY PRN RECTAL CONSTIPATION; Start 05/08/17 at 08:15; Stop 05/08/17 at 08:16; Status DC Diatrizoate Meglum/ Diatrizoate Sod ( Gastroview Liq) 18 ml ONCE ONCE PO Last administered on 05/09/17 16:42; Start 05/09/17 at 14:15; Stop 05/09/17 at 14:16; Status DC Heparin Sodium (Porcine) 300 units 300 units NOW ONCE IV ; Start 05/09/17 at 18 :30; Stop 05/09/17 at 18:31; Status DC Potassium Chloride (KCl 20 Meq Premix Inj) 100 ml @ 50 mls/hr BOLUS ONCE IV Last administered on 05/10/17 13:31; Start 05/10/17 at 12:30; Stop 05/10/17 at 14:29; Status DC Sucralfate 1 gm 1 gm Q8HR PO Last administered on 05/13/17 04:46; Start at 14:00; Stop 05/13/17 at 13:59; Status DC Potassium Chloride (KCl 20 Meq Premix Inj) 100 ml @ 50 mls/hr ONCE ONCE IV Last administered on 05/11/17 08:54; Start 05/11/17 at 08:30; Stop 05/11/17 at 10:29; Status DC Metronidazole (Flagyl) 500 mg Q8HR PO Last administered on 05/25/17 05:32; Start 05/11/17 at 14:00; Stop 05/25/17 at 12:00 Morphine Sulfate 4 mg 4 mg NOW ONCE IV PUSH Last administered on 05/12/17 09: 58; Start 05/12/17 at 09:45; Stop 05/12/17 at 09:46; Status DC Potassium Chloride (KCl 40 Meq Premix Inj) 100 ml @ 25 mls/hr ONCE ONCE IV Last administered on 05/12/17 13:51; Start 05/12/17 at 13:45; Stop 05/12/17 at 17: 44; Status DC Vancomycin HCl (VANCOMYCIN for oral use only) 500 mg QID PO Last administered on 05/24/17 21:58; Start 05/13/17 at 13:00; Stop 05/25/17 at 23:00 Dronabinol (Marinol) 5 mg BID@11,16 PO Last administered on 05/24/17 18:27; Start 05/14/17 at 16:00 Heparin Sodium (Porcine) (*HEPARIN INJ Periprocedural ONLY) 10,000 units STK- MED ONCE .ROUTE Last administered on 05/15/17 15:50; Start 05/15/17 at 15:24; Stop 05/15/17 at 15:25; Status DC Sodium Chloride (NS Flush) UNSCH PRN IVF SEE PROTOCOL Last administered on 03:51; Start 05/15/17 at 16:00 Heparin Sodium (Porcine) (Heparin Inj) UNSCH PRN IV FLUSH SEE PROTOCOL; Start 05/15/17 at 16:00 Iohexol (Omnipaque 350 Inj) 10 ml STK-MED ONCE IV Last administered on 15:50; Start 05/15/17 at 20:42; Stop 05/15/17 at 20:43; Status DC Potassium Chloride (KCl) 30 meq ONCE ONCE PO Last administered on 05/16/17 11: 06; Start 05/16/17 at 09:00; Stop 05/16/17 at 09:01; Status DC Dexamethasone (Decadron) 40 mg ONCE ONCE PO ; Start 05/16/17 at 13:00; Stop 05/16 at 13:01; Status DC Potassium Chloride (KCl) 30 meq ONCE ONCE PO Last administered on 05/17/17 08: 57; Start 05/17/17 at 07:45; Stop 05/17/17 at 07:46; Status DC Potassium Chloride (KCl) 20 meq ONCE ONCE PO Last administered on 05/17/17 15: 00; Start 05/17/17 at 13:00; Stop 05/17/17 at 13:01; Status DC Granisetron HCl 1 mg 1 mg ONCE ONCE IV PUSH Last administered on 05/18/17 17: 02; Start 05/18/17 at 16:30; Stop 05/18/17 at 16:31; Status DC Dexamethasone Sodium Phosphate/ Sodium Chloride (Decadron Inj/NS Inj) 55 ml @ 220 mls/hr ONCE ONCE IV Last administered on 05/18/17 17:02; Start 05/18/17 at 16:30; Stop 05/18/17 at 16:44; Status DC Doxorubicin HCl 91 mg 91 mg ONCE ONCE IV PUSH Last administered on 05/18/17 17 :35; Start 05/18/17 at 17:00; Stop 05/18/17 at 17:01; Status DC Vincristine Sulfate 2 mg/ Sodium Chloride 52 ml @ 312 mls/hr ONCE ONCE IV Last administered on 05/18/17 17:50; Start 05/18/17 at 17:30; Stop 05/18/17 at 17: 39; Status DC Cyclophosphamide/ Sodium Chloride (Cytoxan Inj/NS 500 ml Inj) 500 ml @ 500 mls/ hr ONCE ONCE IV Last administered on 05/18/17 18:08; Start 05/18/17 at 18:00; Stop 05/18/17 at 18:59; Status DC Prednisone 91 mg 91 mg HS PO Last administered on 05/22/17 19:54; Start at 21:00; Stop 05/22/17 at 21:01; Status DC Sodium Chloride (NS 250 ml Inj) 250 ml @ 0 mls/hr ONCE ONCE IV Last administered on 05/18/17 17:00; Start 05/18/17 at 17:00; Stop 05/18/17 at 17:01; Status DC Warfarin Sodium (Coumadin) 1 mg DAILY@16 PO Last administered on 05/20/17 17:37 ; Start 05/19/17 at 16:00; Stop 05/21/17 at 12:42; Status DC Patient Medication Teaching (Coumadin Booklet) 1 ONCE ONCE OTHER Last administered on 05/19/17 16:00; Start 05/19/17 at 16:00; Stop 05/19/17 at 16:01; Status DC Warfarin Sodium 1 mg 1 mg NOW ONCE PO Last administered on 05/19/17 19:40; Start 05/19/17 at 19:45; Stop 05/19/17 at 19:46; Status DC Sodium Chloride (NS 250 ml Inj) 250 ml @ 15 mls/hr ONCE ONCE IV Last administered on 05/22/17 18:36; Start 05/20/17 at 10:00; Stop 05/21/17 at 02:39 ; Status DC Albuterol Sulfate (Ventolin Hfa Inh) 2 puff Q6HR INH ; Start 05/21/17 at 00:00 Warfarin Sodium (Coumadin) 2 mg DAILY@16 PO Last administered on 05/21/17 17: 27; Start 05/21/17 at 16:00; Stop 05/22/17 at 14:13; Status DC Epoetin Oleksandr (Epogen Inj) 10,000 units UNSCH PRN IV WITH DIALYSIS Last administered on 05/25/17 10:30; Start 05/21/17 at 18:30 Warfarin Sodium (Coumadin) 3 mg DAILY@16 PO Last administered on 05/22/17 18: 35; Start 05/22/17 at 16:00; Stop 05/23/17 at 12:26; Status DC Warfarin Sodium (Coumadin) 4 mg DAILY@16 PO Last administered on 05/24/17 18: 27; Start 05/23/17 at 16:00 Sodium Chloride (NS Flush) 5 ml UNSCH PRN IV FLUSH SEE PROTOCOL TABLE Last administered on 05/25/17 03:51; Start 05/24/17 at 06:45 Heparin Sodium (Porcine) (Heparin Central Flush) 250 units UNSCH PRN IV FLUSH SEE PROTOCOL TABLE; Start 05/24/17 at 06:45 Heparin Sodium (Porcine) 500 units 500 units UNSCH IV FLUSH ; Start 05/24/17 at 06:45 Sodium Chloride (NS 250 ml Inj) 250 ml @ 15 mls/hr ONCE ONCE IV ; Start at 10:00; Stop 05/26/17 at 02:39 A/P Assessment and Plan A/P Acute Hypoxic Respiratory Failure-resolved --stable on RA Acute Submassive Pulmonary Embolism Right Heart Dysfunction Global severe left ventricular systolic dysfunction Cardiogenic Shock-resolved -- 2d echo 05/02: EF 30-35%, RV dysfunction with dilation --Repeat ECHO limited study scheduled on 05/09-RV function appears to have normalized, question of interatrial shunt for which cardiology consulted-d/w Dr. Taveras, recommended that once off anticoagulation, would need to be on ASA and require f/u echo periodically for evaluation. Acute Kidney Injury-resolving. Hypokalemia- -- likely secondary to cardiogenic shock -HD as needed. - Nephrology following, Dr. Haley --Left IJ vas catheter, on hemodialysis -replace electrolytes as needed. Hyperphosphatemia protein calorie malnutrition- severe Ileus -continue Phoslo -started on diet;house carpenter following; recommendations noted- PEG was discussed with the patient which he declined- he states that his appetite is better now- calorie count in process. --evaluated by General surgery and GI . -Expanded bowel regimen MiraLAX, lactulose. Large Cell B-cell lymphoma Pulmonary Embolism anemia of chronic disease C. difficile colitis -- hematology/oncology following Dr. Connelly-chemo with [facility]OP regimen initiated. -- continue heparin drip. continue coumadin-monitor PT/INR. -will transfuse with PRBC today. -Epogen with HD. --continue Flagyl and Vanco- plan for 14 days- evaluated by ID . continue PT. Prophylaxis: DVT: SCDs, heparin drip/coumadin Discharge Planning when INR is therapeutic and cleared by Nephrology/oncology. Catalina Eller MD May 25, 2017 10:49
[2017-05-25] MEDS ORDERED: POTASSIUM CHLORIDE 20 MEQ CONTROLLED RELEASE TAB PO ONE (11:00)
[2017-05-25] MEDS: PANTOPRAZOLE SODIUM 40 MG VIAL IV PUSH SCH (12:08)
[2017-05-25] MEDS: ALLOPURINOL 100 MG TAB PO SCH (12:08)
[2017-05-25] MEDS: DRONABINOL 5 MG CAP PO SCH ×2 (12:16→16:09)
--- NOTE | 2017-05-25 13:23 | PD.ONC.PN ---
Subjective Subjective Remarks Afebrile overnight. Patient resting in bed in nad. No complaints. Had two episodes of diarrhea overnight. Tolerated dialysis this morning. Objective Data Date Time Temp Pulse Resp B/P Pulse Ox O2 Delivery O2 Flow Rate FiO2 05/25/17 12:00 98.4 89 18 134/86 98 05/25/17 08:13 73 05/25/17 04:07 71 05/25/17 04:00 96.7 75 17 137/83 99 05/25/17 00:08 80 05/25/17 00:00 96.4 75 17 106/65 97 05/24/17 20:11 78 05/24/17 20:00 97.1 79 18 100/59 98 05/24/17 16:00 97.2 73 14 111/71 98 05/24/17 15:33 73 05/25/17 05/25/17 05/25/17 07:00 15:00 23:00 Intake Total 145 ml Output Total 900 ml 2200 ml Balance -755 ml -2200 ml Result Diagram: 05/25/17 0840 05/25/17 0350 Laboratory Results Laboratory Tests Test 05/24/17 05/24/17 05/25/17 05/25/17 13:30 20:42 03:50 05:30 Activated Partial 24.3 SEC 35.0 SEC 43.7 SEC Thromboplast Time White Blood Count 3.5 TH/MM3 Red Blood Count 2.41 MIL/MM3 Hemoglobin 7.3 GM/DL Hematocrit 20.9 % Mean Corpuscular Volume 86.5 FL Mean Corpuscular Hemoglobin 30.1 PG Mean Corpuscular Hemoglobin 34.9 % Concent Red Cell Distribution Width 17.2 % Platelet Count 158 TH/MM3 Mean Platelet Volume 7.2 FL Neutrophils (%) (Auto) 87.4 % Lymphocytes (%) (Auto) 11.0 % Monocytes (%) (Auto) 0.7 % Eosinophils (%) (Auto) 0.9 % Basophils (%) (Auto) 0.0 % Neutrophils # (Auto) 3.1 TH/MM3 Lymphocytes # (Auto) 0.4 TH/MM3 Monocytes # (Auto) 0.0 TH/MM3 Eosinophils # (Auto) 0.0 TH/MM3 Basophils # (Auto) 0.0 TH/MM3 CBC Comment DIFF FINAL Differential Comment Prothrombin Time 16.2 SEC Prothromb Time International 1.4 RATIO Ratio Sodium Level 143 MEQ/L Potassium Level 3.3 MEQ/L Chloride Level 104 MEQ/L Carbon Dioxide Level 31.4 MEQ/L Anion Gap 8 MEQ/L Blood Urea Nitrogen 34 MG/DL Creatinine 1.26 MG/DL Estimat Glomerular Filtration 74 ML/MIN Rate Random Glucose 86 MG/DL Calcium Level 7.8 MG/DL Stool C. difficile Toxin (PCR) NEGATIVE Stl C. difficile Toxin PRESUMPTIVE Epiderm 027 NEGATIVE Test 05/25/17 08:40 Hemoglobin 6.8 GM/DL Hematocrit 20.0 % Blood Type B POSITIVE Antibody Screen NEGATIVE Crossmatch Leukocyte-Reduced Red Blood Cells Blood Bank Comment Administered Medications Medications (Trade) Dose Ordered Sig/Shyla Route PRN Reason Start Time Stop Time Status Last Admin Dose Admin Sodium Chloride (NS Flush) 2 ml UNSCH PRN IV FLUSH FLUSH AFTER USING IV ACCESS 04/18/17 17:30 05/24/17 21:18 Hydralazine HCl (Apresoline Inj) 10 mg Q6HR PRN IV PUSH SBP>160, DBP>90 04/21/17 17:00 04/27/17 10:15 Nifedipine (Procardia Xl) 90 mg DAILY PO 04/28/17 09:00 05/25/17 09:00 Clonidine (Catapres) 0.1 mg Q6H PRN PO SBP>160, DBP>90 04/27/17 15:00 04/29/17 08:07 Ondansetron HCl (Zofran Inj) 4 mg Q6HR PRN IV PUSH NAUSEA OR VOMITING 04/30/17 11:30 05/07/17 10:06 Promethazine HCl (Phenergan Inj) 25 mg Q6H PRN IM NAUSEA OR VOMITING 04/30/17 11:30 05/01/17 13:27 Acetaminophen/ Hydrocodone Bitart ([place] 5-325 Mg) 1 tab Q6H PRN PO PAIN SCALE 1 TO 10 04/30/17 11:30 05/12/17 02:48 Chlorhexidine Gluconate 15 ml 15 ml BID@08,20 MT 05/02/17 20:00 05/20/17 20:00 Fentanyl Citrate 250 ml @ 0 mls/hr TITRATE IV 05/02/17 10:00 05/10/17 05:36 Propofol (Diprivan 1000 Mg/100ml Inj) 100 ml @ 0 mls/hr TITRATE IV 05/02/17 10:00 05/10/17 06:54 Miscellaneous Information Patient in critical care unit? Ass... [id number] .XX 05/02/17 17:15 05/02/17 17:30 Heparin Sodium/ Dextrose (Heparin-D5W Inj) 250 ml @ 0 mls/hr TITRATE IV 05/03/17 02:00 05/25/17 05:48 Calcium Acetate (Phoslo) 2,668 mg TID PO 05/03/17 09:00 05/24/17 18:27 Allopurinol (Zyloprim) 200 mg DAILY PO 05/06/17 09:00 05/25/17 12:08 Pantoprazole Sodium (Protonix Inj) 40 mg DAILY IV PUSH 05/07/17 12:00 05/25/17 12:08 Artificial Tears 1 applic 1 applic Q8H EACH EYE 05/07/17 18:00 05/19/17 10:00 Sodium Chloride 1,000 ml @ 0 mls/hr TITRATE PRN IV WITH DIALYSIS 05/07/17 18:00 05/22/17 12:08 Sodium Chloride (NS 1000 ml Inj) 1,000 ml @ 200 mls/hr Q5H PRN IV WITH DIALYSIS 05/07/17 18:00 05/25/17 10:29 Sodium Chloride (NS Flush) 5 ml UNSCH PRN IV FLUSH WITH DIALYSIS 05/07/17 18:00 05/25/17 03:50 Heparin Sodium (Porcine) (Heparin Inj) Dwell Heparin to f... UNSCH PRN OTHER WITH DIALYSIS 05/07/17 18:00 05/25/17 10:31 Gentamicin Sulfate (Gentamicin (Dialysis) Inj) 10 mg UNSCH PRN OTHER WITH DIALYSIS 05/07/17 18:00 05/25/17 10:29 Vancomycin HCl (VANCOMYCIN for oral use only) 500 mg QID PO 05/13/17 13:00 05/25/17 23:00 05/25/17 12:08 Dronabinol (Marinol) 5 mg BID@11,16 PO 05/14/17 16:00 05/25/17 12:16 Sodium Chloride (NS Flush) UNSCH PRN IVF SEE PROTOCOL 05/15/17 16:00 05/25/17 03:51 Epoetin Oleksandr (Epogen Inj) 10,000 units UNSCH PRN IV WITH DIALYSIS 05/21/17 18:30 05/25/17 10:30 Warfarin Sodium (Coumadin) 4 mg DAILY@16 PO 05/23/17 16:00 05/24/17 18:27 Sodium Chloride (NS Flush) 5 ml UNSCH PRN IV FLUSH SEE PROTOCOL TABLE 05/24/17 06:45 05/25/17 03:51 Objective Remarks GENERAL: Thin male upright in bed in nad. SKIN: Warm and dry. vas-cath, left neck. HEAD: Normocephalic. EYES: No injection or drainage. NECK: Supple, trachea midline. CARDIOVASCULAR: +S1/S2 RESPIRATORY: Breath sounds equal bilaterally. No accessory muscle use. GASTROINTESTINAL: Abdomen soft, non-tender, nondistended. EXTREMITIES: No cyanosis, or edema. NEUROLOGICAL: aox3. normal speech. moving all extremities. Assessment/Plan Problem List: (1) Non-Hodgkin lymphoma Status: Acute Plan: --Has aggressive triple hit lymphoma. --Received Rituxan x1. --Neck adenopathy relatively stable. --05/18-->[facility] chemotherapy (2) Pulmonary emboli Status: Acute Plan: --on heparin gtt-->coumadin --CTA showed large PE --s/p tpa therapy on 05.02. now on heparin gtt. (3) ALDO (acute kidney injury) Status: Acute Plan: --creatinine significantly improved today. (4) Normocytic anemia Status: Acute Plan: --multifactorial due to chronic disease, renal failure --monitor and transfuse as needed (5) C. difficile colitis Status: Resolved Plan: --on PO Vanco Assessment 47y/o male admitted with pancreatitis, found to have NHL. Plan 1. continue heparin bridge to coumadin 2. give 2 units pRBC today 3. monitor CBC 4. watch for renal recovery. Attending Statement The exam, history, and the medical decision-making described in the above note were completed with the assistance of the mid-level provider. I reviewed and agree with the findings presented. I attest that I had a [id number] encounter with the patient on the same day, and personally performed and documented my assessment and findings in the medical record. Has more urine output, renal function improving. The left axillary mass and right neck mass decreasing. Monitor CBC. Transfuse prn. Problem Qualifiers (1) Non-Hodgkin lymphoma: Brenda Platt May 25, 2017 13:23 Ruslan Connelly MD May 25, 2017 15:21
[2017-05-25 15:26] LABS: INTERNATIONAL NORMALIZED RATIO 1.5 RATIO; PROTHROMBIN TIME - PATIENT 17.4 SEC (9.8-11.6)
[2017-05-25] MEDS: WARFARIN SOD 4 MG TAB PO SCH (16:09)
--- NOTE | 2017-05-25 16:30 | HHI.NPPN ---
Subjective History of Present Illness 47-year-old male with no known past medical history who came to the hospital with complaint of nausea, vomiting and abdominal pain on April 18. I was called to see the patient because of elevated BUN and creatinine. The patient had a creatinine of 1.3 on presentation which improved to 0.7 and 0.8, then started increasing for last few days. Additional Remarks Patient is alert, feeling better, started eating better. Objective Data Data 05/24/17 05/25/17 19:00 07:00 Intake Total 416 ml 145 ml Output Total 400 ml 1000 ml Balance 16 ml -855 ml Intake Oral 358 ml IV Total 58 ml 145 ml Output Urine Total 400 ml 1000 ml # Bowel Movements 0 1 Vital Signs Date Time Temp Pulse Resp B/P Pulse Ox O2 Delivery O2 Flow Rate FiO2 05/25/17 16:00 98.4 70 18 112/68 98 05/25/17 12:00 98.4 89 18 134/86 98 05/25/17 08:13 73 05/25/17 04:07 71 05/25/17 04:00 96.7 75 17 137/83 99 05/25/17 00:08 80 05/25/17 00:00 96.4 75 17 106/65 97 05/24/17 20:11 78 05/24/17 20:00 97.1 79 18 100/59 98 -: 05/25/17 0840 05/25/17 0350 Physical Exam General Appearance: Malnourished Eyes Eye Exam: Pupils Equal Throat Throat Exam: Oral Mucosa [place] & Moist Pulmonary Resp Exam: Crackles, Rhonchi, Decreased Bases, Diminished Breath Sounds, Poor Inspiratory Effort Cardiology CV Exam: Regular, Normal Sinus Rhythm Gastrointestinal/Abdomen GI Exam: Soft, Non-Tender, Bowel Sounds Present, Distended Extremeties Extremities Exam: Trace Edema Neurologic Neuro Exam: Awake Assessment/Plan Assessment Summary: ALDO/Acute Renal Failure Problem List: (1) Non-Hodgkin lymphoma Plan: Hematology following, need for chemotherapy in the future. (2) Adenopathy (3) Pleural effusion (4) Shortness of breath (5) Pulmonary emboli Plan: on anticoagulation. (6) Acute pancreatitis (7) ALDO (acute kidney injury) Plan: He has become dialysis dependent. Plan Avoid nephrotoxins. Multiple medical problems, alcohol induced pancreatitis. Follow the urine out put and BMP. Urine out put is improving. Creatinine is better. He had HD done in AM, and 2 liters removed. Will hold HD for now, follow the urine out put and BMP. Informed HD nurse. Problem Qualifiers (1) Non-Hodgkin lymphoma: (2) Acute pancreatitis: Qualified Code: K85.20 - Alcohol-induced acute pancreatitis, unspecified complication status Leonid Haley MD May 25, 2017 16:30
[2017-05-25 19:00] LABS: APTT (PATIENT) 45.3 SEC (24.3-30.1)
[2017-05-26] VITALS (10 sets, daily range): BP systolic 103–152; BP diastolic 70–94; PULSE 67–83; RESP 16–18; TEMP 96.6–98; O2SAT 96–100
[2017-05-26] MEDS: ARTIFICIAL TEARS OPTH OINT 3.5 APPLIC/3.5 GM TUBO EACH EYE SCH ×3 (02:00→17:09)
[2017-05-26 04:49] LABS: AUTOMATED NEUTROPHIL # 1.1 TH/MM3 (1.8-7.7); BASOPHIL % 0.9 % (0.0-2.0); EOSINOPHIL % 3.2 % (0.0-4.0); HEMATOCRIT 31.5 % (39.0-51.0); LYMPH % 21.9 % (9.0-44.0); LYMPHOCYTE # 0.3 TH/MM3 (1.0-4.8); MEAN CELL VOLUME 86.3 FL (80.0-100.0); MEAN CORPUSCULAR HEMOGLOBIN 29.8 PG (27.0-34.0); MEAN CORPUSCULAR HGB CONC 34.6 % (32.0-36.0); MONO % 1.6 % (0.0-8.0); NEUT % 72.4 % (16.0-70.0); PLATELET COUNT 155 TH/MM3 (150-450); RED BLOOD COUNT 3.65 MIL/MM3 (4.50-5.90); RED CELL DISTRIBUTION WIDTH 15.6 % (11.6-17.2); WHITE BLOOD COUNT 1.5 TH/MM3 (4.0-11.0)
[2017-05-26 04:54] LABS: HEMO FLAGS AUTO DIFF
[2017-05-26 05:12] LABS: BICARBONATE 33.1 MEQ/L (21.0-32.0); POTASSIUM 3.2 MEQ/L (3.5-5.1)
[2017-05-26] MEDS: ALBUTEROL SULFATE 90 MCG/ACT HFA 18 GM INHALER INH SCH ×4 (05:15→17:09)
[2017-05-26] MEDS: HEPARIN-D5W 25,000 U/250 ML 250 ML IV SCH (06:57)
[2017-05-26] MEDS: CHLORHEXIDINE 0.12% (ORAL KIT) 15 ML CUP MT SCH ×2 (08:00→20:00)
--- NOTE | 2017-05-26 08:24 | HHI.PR ---
Subjective Remarks resting comfortably with no distress. denies pain. no new complaints. Objective Vitals Vital Signs Date Time Temp Pulse Resp B/P Pulse Ox O2 Delivery O2 Flow Rate FiO2 05/26/17 04:00 96.6 72 16 139/88 97 05/26/17 00:00 97.2 72 16 152/94 97 05/25/17 21:16 80 05/25/17 20:00 97.1 66 16 121/77 99 05/25/17 16:42 72 05/25/17 16:00 98.4 70 18 112/68 98 05/25/17 12:03 70 05/25/17 12:00 98.4 89 18 134/86 98 I/O 05/25/17 05/25/17 05/25/17 05/26/17 05/26/17 05/26/17 06:59 14:59 22:59 06:59 14:59 22:59 Intake Total 145 ml 500 ml Output Total 900 ml 2200 ml 475 ml 500 ml Balance -755 ml -2200 ml 25 ml -500 ml Intake Oral 420 ml IV Total 145 ml 80 ml Output Urine Total 900 ml 200 ml 475 ml 500 ml Hemodialysis 2000 ml # Bowel Movements 1 1 Result Diagram: 05/26/17 0430 05/26/17 0430 Imaging Last Impressions Chest X-Ray [id number]/21/17599 Signed Impressions: Service Date/Time: May 06:05 - CONCLUSION: Bibasilar opacities the majority represent effusion appreciated without posterior left lower lobe retrocardiac density consolidation atelectasis versus infiltrate there was underlying in the right medial base suggesting air fluid level the possibility of cavitary lesion with air-fluid level cannot be excluded. There is persistent mediastinal mass widening. Stanford Mcdonough MD Abdomen X-Ray 05/15/17 0600 Draft Impressions: Service Date/Time: Monday, May 15, 2017 04:29 - CONCLUSION: Findings of mild small bowel ileus. There has been no significant change when compared to the prior exam. Jadon Carroll MD Central Venous Line 05/15/17 0000 Signed Impressions: Service Date/Time: Monday, May 15, 2017 00:00 - CONCLUSION: Uncomplicated catheter removal. Bryon Calero Jr., MD Catheter Placement X-Ray 05/15/17 0000 Signed Impressions: Service Date/Time: Monday, May 15, 2017 15:13 - CONCLUSION: Mild narrowing involving the brachiocephalic vein near its junction with the SVC. This is not flow limiting. A left-sided vas catheter was placed. Bryon Calero Jr., MD Abdomen/Pelvis CT 05/09/17 0000 Signed Impressions: Service Date/Time: Tuesday, May 09, 2017 21:16 - CONCLUSION: 1. Diffusely distended loops of small bowel down to the cecum suggest ileus. 2. Evidence of mesenteric and retroperitoneal adenopathy. 3. Large bilateral pleural effusions , moderate amount of free fluid in the pelvis and mild ascites in the upper abdomen. 4. Abnormal appearance to the parenchyma of the right kidney with patchy areas of hyperdensity in a mosaic pattern. This of uncertain significance. The patient had iodinated contrast for a CT pulmonary angiogram 7 days ago; this could potentially represent residual parenchymal contrast which would be nonspecific, but raises the possibility of either obstruction or renal infarctions. Bryon Evans MD Renal Ultrasound 05/05/17 0000 Signed Impressions: Service Date/Time: Friday, May 05, 2017 20:06 - CONCLUSION: 1. Kidneys are borderline echogenic which can be seen with medical renal disease. 2. No evidence of hydronephrosis. 3. Abdominal ascites. 4. Multiple dilated bowel loops. 5. Bilateral pleural effusions. Tray Patel MD Head CT 05/03/17 0000 Signed Impressions: Service Date/Time: Wednesday, May 03, 2017 17:22 - CONCLUSION: No acute intracranial disease. No hemorrhage seen. Tray Patel MD CT Angiography 05/02/17 0000 Signed Impressions: Service Date/Time: Tuesday, May 02, 2017 11:10 - CONCLUSION: 1. There is pulmonary embolus in the right pulmonary artery, right upper lobe and lower lobe branches. 2. Resorption of previously seen gas in the left axilla with fluid collection at this site with postprocedural change and possibly postprocedural hemorrhage not significantly changed in size. 3. Interval development of right lung airspace process may represent postobstructive pneumonia and there is mucus within the trachea not present yesterday. 4. Right pleural effusion is smaller and left pleural effusion is larger. 5. No change in bulky adenopathy. Leonor Chavez MD Upper Extremity Ultrasound 04/30/17 0000 Signed Impressions: Service Date/Time: April 12:25 - CONCLUSION: There some superficial thrombosis of a vein in the forearm. The deep venous system is patent. Large fluid collection left axilla. Significant soft tissue edema throughout the upper arm. Rinku Hillman MD Thoracentesis Ultrasound 04/30/17 0000 Signed Impressions: Service Date/Time: April 12:14 - CONCLUSION: Uncomplicated ultrasound guided thoracentesis. Tray Patel MD Port Line Insertion 04/27/17 0000 Signed Impressions: Service Date/Time: Thursday, April 27, 2017 14:56 - CONCLUSION: 1. Bulky bilateral lower cervical lymphadenopathy. 2. Uncomplicated ultrasound and fluoroscopic guided implanted central venous port catheter placement as described in detail above. An 8 [employer] port was placed. Liang Peralta MD Bone Biopsy CT 04/27/17 0000 Signed Impressions: Service Date/Time: Thursday, April 27, 2017 16:22 - CONCLUSION: 1. Uncomplicated CT guided bone marrow aspirate. 2. Uncomplicated CT guided bone marrow biopsy. Tray Patel MD Chest CT 04/25/17 0000 Signed Impressions: Service Date/Time: Wednesday, April 26, 2017 19:00 - CONCLUSION: The right pleural effusion is slightly larger on the left side has not changed. Extensive bulky adenopathy as before and malignancies such as lymphoma is suspected. Leonor Chavez MD Gall Bladder Ultrasound 04/22/17 0000 Signed Impressions: Service Date/Time: Saturday, April 22, 2017 07:35 - CONCLUSION: Small liver with focal abdomen only incompletely evaluated. Large right pleural effusion. effusion. Kirk Briceño MD FACR Abdomen CT 04/20/17 0000 Signed Impressions: Service Date/Time: Thursday, April 20, 2017 19:40 - CONCLUSION: Limited exam because of lack of intravenous contrast. Lymphoma is suspected. Pathological diagnosis could be obtained with ultrasound biopsy of the cervical, axillary or inguinal adenopathy. Kirk Briceño MD FACR Objective Remarks GENERAL: in no acute distress CARDIOVASCULAR: Regular rate and regular rhythm without murmurs, gallops, or rubs. RESPIRATORY: Clear to auscultation. Breath sounds equal bilaterally. No wheezes , rales, or rhonchi. GASTROINTESTINAL: Abdomen soft, non-tender, nondistended. Normal, active bowel sounds MUSCULOSKELETAL: Extremities without clubbing, cyanosis, or edema. NEURO: awake and alert Procedures 04/[address] excision biopsy 04/27- port placement 05/02-TPA 05/06-left IJ Vas-Cath placement endotracheal intubation Medications and IVs Current Medications Ondansetron HCl 4 mg 4 mg ONCE ONCE IVP Last administered on 04/18/17 17:38; Start 04/18/17 at 17:30; Stop 04/18/17 at 17:31; Status DC Sodium Chloride (NS 1000 ml Inj) 1,000 ml @ 1,000 mls/hr Q1H IV Last administered on 04/18/17 17:38; Start 04/18/17 at 17:16; Stop 04/18/17 at 18:15; Status DC Sodium Chloride 2 ml 2 ml UNSCH PRN IV FLUSH FLUSH AFTER USING IV ACCESS Last administered on 05/24/17 21:18; Start 04/18/17 at 17:30 Sodium Chloride 1,000 ml @ 1,000 mls/hr Q1H IV Last administered on 04/18/17 18:40; Start 04/18/17 at 18:37; Stop 04/18/17 at 19:36; Status DC Potassium Chloride (KCl 20 Meq Premix Inj) 100 ml @ 50 mls/hr Q2H IV Last administered on 04/18/17 22:12; Start 04/18/17 at 19:00; Stop 04/18/17 at 22:59; Status DC Ondansetron HCl (Zofran Inj) 4 mg Q6H PRN IVP NAUSEA OR VOMITING Last administered on 04/26/17 06:04; Start 04/18/17 at 19:30; Stop 04/26/17 at 13:02 ; Status DC Morphine Sulfate (Morphine Inj) 2 mg Q3H PRN IV Pain 3-5; if unable to take PO ; Start 04/18/17 at 19:30; Status Cancel Morphine Sulfate (Morphine Inj) 4 mg Q3H PRN IV Pain 6-10;if unable to take PO ; Start 04/18/17 at 19:30; Status Cancel Naloxone HCl (Narcan Inj) 0.4 mg UNSCH PRN IV SEE LABEL COMMENTS; Start at 19:30 Senna/Docusate Sodium (Porsha-Colace) 1 tab BID PO Last administered on 07:52; Start 04/18/17 at 21:00; Stop 05/13/17 at 17:16; Status DC Magnesium Hydroxide (Milk Of Magnesia Liq) 30 ml Q12H PRN PO MILD - MODERATE CONSTIPATION Last administered on 05/09/17 08:01; Start 04/18/17 at 19:30; Stop 05/13/17 at 17:16; Status DC Sennosides (Senokot) 17.2 mg Q12H PRN PO MODERATE - SEVERE CONSTIPATION; Start 04/18/17 at 19:30; Stop 05/13/17 at 17:16; Status DC Bisacodyl (Dulcolax Supp) 10 mg DAILY PRN RECTAL SEVERE CONSITIPATION; Start at 19:30; Stop 05/13/17 at 17:16; Status DC Lactulose 30 ml 30 ml DAILY PRN PO SEVERE CONSITIPATION; Start 04/18/17 at 19:30 ; Stop 05/13/17 at 17:16; Status DC Potassium Chloride/Sodium Chloride 1,000 ml @ 125 mls/hr Q8H IV ; Start at 21:00; Stop 04/18/17 at 21:00; Status DC Potassium Chloride/Sodium Chloride 1,000 ml @ 83 mls/hr Q12H3M IV Last administered on 04/23/17 01:19; Start 04/19/17 at 02:00; Stop 04/23/17 at 09:04 ; Status DC Sodium Chloride (NS 1000 ml Inj) 1,000 ml @ 125 mls/hr Q8H IV Last administered on 04/18/17 20:00; Start 04/18/17 at 20:00; Stop 04/19/17 at 16:01; Status DC Pneumococcal Polyvalent Vaccine 25 mcg 25 mcg ONCE ONCE IM Last administered on 04/19/17 11:20; Start 04/19/17 at 09:00; Stop 04/19/17 at 09:01; Status DC Ceftriaxone Sodium/Sodium Chloride (Rocephin Inj/NS Inj) 100 ml @ 200 mls/hr Q24H IV Last administered on 04/24/17 12:51; Start 04/19/17 at 13:00; Stop at 14:33; Status DC Heparin Sodium (Porcine) (Heparin Inj) 5,000 units Q8HR SQ Last administered on 05/02/17 12:46; Start 04/19/17 at 14:00; Stop 05/19/17 at 10:23; Status DC Azithromycin (Zithromax) 500 mg Q24H PO Last administered on 04/24/17 12:51; Start 04/19/17 at 13:00; Stop 04/24/17 at 14:33; Status DC Clonidine (Catapres) 0.1 mg ONCE ONCE PO Last administered on 04/20/17 22:16 ; Start 04/20/17 at 21:45; Stop 04/20/17 at 21:46; Status DC Nifedipine (Procardia Xl) 30 mg DAILY PO Last administered on 04/25/17 09:42; Start 04/21/17 at 17:00; Stop 04/25/17 at 13:12; Status DC Hydralazine HCl 10 mg 10 mg Q6HR PRN IV PUSH SBP>160, DBP>90 Last administered on 04/27/17 10:15; Start 04/21/17 at 17:00 Cefazolin Sodium/ Sodium Chloride (Ancef Inj/NS Inj) 100 ml @ 200 mls/hr STERILE PROCESS TECH IV ; Start 04/21/17 at 21:30; Stop 04/24/17 at 21:29; Status DC Midazolam HCl (Versed Inj) 2 mg STK-MED ONCE .ROUTE Last administered on 09:02; Start 04/22/17 at 09:02; Stop 04/22/17 at 09:03; Status DC Bupivacaine HCl/ Epinephrine Bitart (Sensorcaine-Epi 0.5% 50 ml Inj) 50 ml STK- MED ONCE INFIL ; Start 04/22/17 at 09:25; Stop 04/22/17 at 09:26; Status Cancel Albuterol Sulfate (*ALBUTEROL NEB PERIprocedure ONLY) 2.5 mg STK-MED ONCE NEB Last administered on 04/22/17 10:06; Start 04/22/17 at 10:06; Stop 04/22/17 at 10:07; Status DC Fentanyl Citrate (fentaNYL INJ) 200 mcg STK-MED ONCE .ROUTE ; Start 04/22/17 at 10:10; Stop 04/22/17 at 10:11; Status DC Bupivacaine HCl (Marcaine Pf 0.5% Inj) 30 ml STK-MED ONCE INFIL Last administered on 04/22/17 09:25; Start 04/22/17 at 09:25; Stop 04/22/17 at 10:49 ; Status DC Miscellaneous Information ALL NURSING DEPARTME... UNSCH PRN .XX SEE LABEL COMMENTS; Start 04/22/17 at 10:01; Stop 04/23/17 at 10:00; Status DC Dextrose/Sodium Chloride 1,000 ml @ 60 mls/hr [id number] IV Last administered on 04/24/17 06:40; Start 04/23/17 at 12:45; Stop 04/24/17 at 14:36; Status DC Potassium Chloride/Dextrose/ Sodium Chloride (KCl Inj/D5W-NS 1000 ml Inj) 1,015 ml @ 70 mls/hr [id number] IV Last administered on 04/25/17 05:34; Start at 16:00; Stop 04/25/17 at 13:12; Status DC Promethazine HCl (Phenergan Inj) 25 mg ONCE ONCE IM Last administered on 11:55; Start 04/25/17 at 08:00; Stop 04/25/17 at 08:01; Status DC Nifedipine 60 mg 60 mg DAILY PO Last administered on 04/27/17 10:02; Start at 09:00; Stop 04/27/17 at 14:48; Status DC Potassium Chloride/Dextrose/ Sodium Chloride (KCl Inj/D5W-NS 1000 ml Inj) 1,015 ml @ 60 mls/hr [id number] IV Last administered on 04/27/17 18:18; Start at 15:00; Stop 04/28/17 at 11:49; Status DC Promethazine HCl (Phenergan Inj) 12.5 mg Q8H PRN IM PERSISTENT NAUSEA Last administered on 04/30/17 04:34; Start 04/26/17 at 13:15; Stop 04/30/17 at 11:28 ; Status DC Allopurinol 300 mg 300 mg DAILY PO Last administered on 05/05/17 08:12; Start 04/27/17 at 09:00; Stop 05/05/17 at 12:10; Status DC Vancomycin HCl 1000 mg/Sodium Chloride 250 ml @ 250 mls/hr STERILE PROCESS TECH IV Last administered on 04/27/17 13:49; Start 04/27/17 at 10:00; Stop 04/30/17 at 09:59 ; Status DC Cefazolin Sodium/ Dextrose (Ancef 2 Gm Premix) 50 ml @ 100 mls/hr STERILE PROCESS TECH IV Last administered on 04/27/17 15:42; Start 04/27/17 at 10:00; Stop 04/30/17 at 09:59; Status DC Nifedipine (Procardia Xl) 90 mg DAILY PO Last administered on 05/25/17 09:00; Start 04/28/17 at 09:00 Clonidine (Catapres) 0.1 mg Q12HR PO ; Start 04/27/17 at 21:00; Status UNV Clonidine (Catapres) 0.1 mg Q6H PRN PO SBP>160, DBP>90 Last administered on 08:07; Start 04/27/17 at 15:00 Heparin Sodium (Porcine) (*HEPARIN CENTRAL FLUSH PERIprocedural ONLY) 500 units STK-MED ONCE IV FLUSH Last administered on 04/27/17 14:51; Start 04/27/17 at 14:51; Stop 04/27/17 at 14:52; Status DC Lidocaine/ Epinephrine (Xylocaine-Epi 1%-1:100,000 Inj) 20 ml STK-MED ONCE .ROUTE Last administered on 04/27/17 14:51; Start 04/27/17 at 14:51; Stop at 14:52; Status DC Midazolam HCl (Versed Inj) 5 mg STK-MED ONCE .ROUTE Last administered on 14:52; Start 04/27/17 at 14:52; Stop 04/27/17 at 14:53; Status DC Fentanyl Citrate 250 mcg 250 mcg STK-MED ONCE .ROUTE Last administered on 14:53; Start 04/27/17 at 14:53; Stop 04/27/17 at 14:54; Status DC Sodium Chloride (NS 1000 ml Inj) 1,000 ml @ 100 mls/hr Q10H IV Last administered on 04/29/17 17:55; Start 04/29/17 at 15:00; Stop 04/30/17 at 00:59 ; Status DC Acetaminophen (Tylenol) 650 mg ONCE ONCE PO Last administered on 04/30/17 16: 44; Start 04/30/17 at 13:00; Stop 04/30/17 at 13:01; Status DC Diphenhydramine HCl 50 mg 50 mg ONCE ONCE PO Last administered on 04/30/17 16 :43; Start 04/30/17 at 13:00; Stop 04/30/17 at 13:01; Status DC Rituximab/Sodium Chloride (Rituxan Inj/NS 500 ml Inj) 571.625 ml @ 0 mls/hr ONCE ONCE IV Last administered on 05/01/17 13:15; Start 04/30/17 at 14:00; Stop 04/30/17 at 14:01; Status DC Prednisone 115 mg 115 mg Q12H PO ; Start 04/30/17 at 13:00; Stop 05/01/17 at 11: 21; Status DC Dexamethasone Sodium Phosphate 20 mg/Granisetron HCl 1 mg/Sodium Chloride 56 ml @ 224 mls/hr Q24H IV ; Start 04/30/17 at 15:00; Stop 05/01/17 at 11:26; Status DC Potassium Chloride 100 ml @ 50 mls/hr BOLUS ONCE IV Last administered on 04/30 10:20; Start 04/30/17 at 10:00; Stop 04/30/17 at 11:59; Status DC Etoposide 95.5 mg/ Doxorubicin HCl 19.1 mg/ Vincristine Sulfate 0.764 mg/ Sodium Chloride 515.089 ml @ 21.462 mls/hr Q24H IV ; Start 04/30/17 at 15:00; Stop 05/18/17 at 13:46; Status DC Cyclophosphamide/ Sodium Chloride (Cytoxan Inj/NS 500 ml Inj) 500 ml @ 500 mls/ hr ONCE ONCE IV ; Start 05/04/17 at 14:00; Stop 05/04/17 at 14:59; Status DC Ondansetron HCl (Zofran Inj) 4 mg Q6HR PRN IV PUSH NAUSEA OR VOMITING Last administered on 05/07/17 10:06; Start 04/30/17 at 11:30 Promethazine HCl (Phenergan Inj) 25 mg Q6H PRN IM NAUSEA OR VOMITING Last administered on 05/01/17 13:27; Start 04/30/17 at 11:30 Acetaminophen/ Hydrocodone Bitart ([place] 5-325 Mg) 1 tab Q6H PRN PO PAIN SCALE 1 TO 10 Last administered on 05/12/17 02:48; Start 04/30/17 at 11:30 Albuterol/ Ipratropium (Duoneb Neb) 1 ampule ONCE ONCE NEB Last administered on 04/30/17 20:16; Start 04/30/17 at 19:45; Stop 04/30/17 at 20:11; Status DC Albuterol/ Ipratropium (Duoneb Neb) 1 ampule Q2HR NEB PRN NEB sob, wheeze; Start 04/30/17 at 20:45; Stop 05/02/17 at 10:14; Status DC Morphine Sulfate (Morphine Inj) 2 mg ONCE ONCE IV PUSH Last administered on 23:36; Start 04/30/17 at 23:30; Stop 04/30/17 at 23:31; Status DC Furosemide (Lasix Inj) 10 mg ONCE ONCE IV PUSH Last administered on 05/01/17 01:01; Start 05/01/17 at 00:00; Stop 05/01/17 at 00:01; Status DC Furosemide (Lasix Inj) 20 mg ONCE ONCE IV PUSH Last administered on 05/01/17 09:09; Start 05/01/17 at 07:45; Stop 05/01/17 at 07:52; Status DC Acetaminophen (Tylenol) 650 mg NOW ONCE PO Last administered on 05/01/17 10: 51; Start 05/01/17 at 10:45; Stop 05/01/17 at 10:46; Status DC Diphenhydramine HCl 50 mg 50 mg NOW ONCE PO Last administered on 05/01/17 10: 51; Start 05/01/17 at 10:45; Stop 05/01/17 at 10:46; Status DC Rituximab/Sodium Chloride (Rituxan Inj/NS 500 ml Inj) 571.625 ml @ 0 mls/hr ONCE ONCE IV ; Start 05/01/17 at 12:00; Stop 05/01/17 at 12:01; Status DC Acetaminophen (Tylenol) 650 mg ONCE ONCE PO ; Start 05/01/17 at 11:30; Stop at 11:31; Status DC Diphenhydramine HCl (Benadryl) 50 mg ONCE ONCE PO ; Start 05/01/17 at 11:30; Stop 05/01/17 at 11:31; Status DC Prednisone 115 mg 115 mg Q12HR PO Last administered on 05/02/17 20:08; Start 05/01/17 at 11:00; Stop 05/05/17 at 21:01; Status DC Dexamethasone Sodium Phosphate/ Granisetron HCl/ Sodium Chloride (Decadron Inj/ Kytril Inj/NS Inj) 56 ml @ 224 mls/hr Q24H IV ; Start 05/01/17 at 11:30; Stop 05/06/17 at 11:44; Status DC Metoclopramide HCl (Reglan Inj) 10 mg Q8HR IV PUSH Last administered on 04:59; Start 05/01/17 at 15:30; Stop 05/09/17 at 19:03; Status DC Pantoprazole Sodium (Protonix) 40 mg DAILY PO Last administered on 05/06/17 08 :17; Start 05/01/17 at 16:00; Stop 05/07/17 at 11:49; Status DC Furosemide (Lasix Inj) 20 mg ONCE ONCE IV PUSH Last administered on 05/01/17 16:14; Start 05/01/17 at 15:30; Stop 05/01/17 at 15:31; Status DC Albuterol/ Ipratropium (Duoneb Neb) 1 ampule BID NEB INH Last administered on 05/02/17 07:47; Start 05/01/17 at 20:00; Stop 05/02/17 at 10:18; Status DC Furosemide (Lasix Inj) 20 mg STAT ONCE IV PUSH Last administered on 05/02/17 08:40; Start 05/02/17 at 08:30; Stop 05/02/17 at 08:37; Status DC Etomidate (Amidate Inj) 20 mg STK-MED ONCE .ROUTE Last administered on 7/22/ 17at 12:48; Start 05/02/17 at 09:23; Stop 05/02/17 at 09:24; Status DC Dextrose (D50w (Vial) Inj) 25 ml UNSCH PRN IV PUSH HYPOGLYCEMIA-SEE COMMENTS; Start 05/02/17 at 10:00; Stop 05/16/17 at 08:09; Status DC Insulin Human Regular (NovoLIN R SUPPLEMENTAL SCALE) 1 Q6HR SQ Last administered on 05/04/17 18:00; Start 05/02/17 at 12:00; Stop 05/16/17 at 08:09 ; Status DC Chlorhexidine Gluconate (Peridex 0.12% Liq) 15 ml BID@08,20 MT Last administered on 05/20/17 20:00; Start 05/02/17 at 20:00 Magnesium Oxide 800 mg 800 mg UNSCH PRN PO For Magnesium 1.2 - 1.6 mg/dL; Start 05/02/17 at 10:00; Stop 05/03/17 at 13:51; Status DC Magnesium Sulfate 4 gm/Sodium Chloride 100 ml @ 50 mls/hr UNSCH PRN IV For Magnesium 0.9 - 1.1 mg/dL; Start 05/02/17 at 10:00; Stop 05/03/17 at 13:51; Status DC Magnesium Sulfate 2 gm/Sodium Chloride 100 ml @ 50 mls/hr UNSCH PRN IV For Magnesium 1.2 - 1.6 mg/dL; Start 05/02/17 at 10:00; Stop 05/03/17 at 13:51; Status DC Potassium Chloride 100 ml @ 50 mls/hr Q2H PRN IV For Potassium 2.8 - 3.2 mEq/L ; Start 05/02/17 at 10:00; Stop 05/03/17 at 13:51; Status DC Potassium Chloride 100 ml @ 50 mls/hr Q2H PRN IV For Potassium 3.3 - 3.5 mEq/L ; Start 05/02/17 at 10:00; Stop 05/03/17 at 13:51; Status DC Potassium Chloride 100 ml @ 50 mls/hr Q2H PRN IV For Potassium 2.8 - 3.2 mEq/L ; Start 05/02/17 at 10:00; Stop 05/03/17 at 13:51; Status DC Potassium Chloride (KCl 40 Meq Premix Inj) 100 ml @ 25 mls/hr UNSCH PRN IV For Potassium 3.3 - 3.5 mEq/L; Start 05/02/17 at 10:00; Stop 05/03/17 at 13:51; Status DC Potassium Phosphate (K-Phos) 2,000 mg Q4H PRN PO For Phosphorus < 2.5 mg/dL; Start 05/02/17 at 10:00; Stop 05/03/17 at 13:51; Status DC Potassium Phosphate 2000 mg 2,000 mg UNSCH PRN PO/TUBE SEE LABEL COMMENTS; Start 05/02/17 at 10:00; Stop 05/03/17 at 13:51; Status DC Potassium Phosphate 30 mmol/ Sodium Chloride 260 ml @ 42 mls/hr UNSCH PRN IV SEE LABEL COMMENTS; Start 05/02/17 at 10:00; Stop 05/03/17 at 13:52; Status DC Sodium Phosphate/ Sodium Chloride (Sodium Phosphate Inj/NS 250 ml Inj) 250 ml @ 42 mls/hr UNSCH PRN IV For Phosphorus < 2.5 mg/dL; Start 05/02/17 at 10:00; Stop 05/03/17 at 13:52; Status DC Albuterol/ Ipratropium (Duoneb Neb) 1 ampule Q6HR NEB INH Last administered on 05/06/17 03:23; Start 05/02/17 at 10:00; Stop 05/06/17 at 10:00; Status DC Albuterol/ Ipratropium 1 ampule 1 ampule Q2HR NEB PRN INH WHEEZING Last administered on 05/08/17 08:08; Start 05/02/17 at 10:00 Fentanyl Citrate 250 ml @ 0 mls/hr TITRATE IV Last administered on 05/10/17 05 :36; Start 05/02/17 at 10:00 Propofol (Diprivan 1000 Mg/100ml Inj) 100 ml @ 0 mls/hr TITRATE IV Last administered on 05/10/17 06:54; Start 05/02/17 at 10:00 Iohexol 75 ml 75 ml STK-MED ONCE IV Last administered on 05/02/17 11:31; Start 05/02/17 at 11:31; Stop 05/02/17 at 11:32; Status DC Cefepime HCl 2000 mg/Sodium Chloride 100 ml @ 200 mls/hr Q12H IV Last administered on 05/05/17 02:43; Start 05/02/17 at 15:00; Stop 05/05/17 at 11:53 ; Status DC Vancomycin HCl/ Sodium Chloride (Vancomycin Inj/ NS 250 ml Inj) 250 ml @ 250 mls/hr ONCE ONCE IV Last administered on 05/02/17 16:14; Start 05/02/17 at 15 :00; Stop 05/02/17 at 15:59; Status DC Heparin Sodium (Porcine) (Heparin Inj) 5,000 units ONCE ONCE IV Last administered on 05/02/17 15:35; Start 05/02/17 at 16:00; Stop 05/02/17 at 16:01 ; Status DC Miscellaneous Information Patient in critical care unit? Ass... [id number] .XX Last administered on 05/02/17 17:30; Start 05/02/17 at 17:15 Chlorhexidine Gluconate (Chlorhexidine 2% Cloth) 3 pack DAILY@04 TOPICAL Last administered on 05/07/17 03:45; Start 05/03/17 at 04:00; Stop 05/07/17 at 04:01 ; Status DC Chlorhexidine Gluconate 3 pack 3 pack UNSCH PRN TOPICAL HYGIENIC CARE; Start at 17:15; Stop 05/07/17 at 17:08; Status DC Alteplase, Recombinant/ Syringe / Bag (Activase Drip/ Syringe/Bag) 49.9999 ml @ 50 mls/hr ONCE ONCE IV Last administered on 05/02/17 19:58; Start 05/02/17 at 19:15; Stop 05/02/17 at 20:14; Status DC Sodium Chloride (NS Inj) 30 ml ONCE ONCE IVF Last administered on 05/02/17 19 :15; Start 05/02/17 at 19:15; Stop 05/02/17 at 19:28; Status DC Miscellaneous Medication Thrombolysis plan for submass... ONCE ONCE OTHER Last administered on 05/02/17 19:15; Start 05/02/17 at 19:15; Stop 05/02/17 at 19:28; Status DC Heparin Sodium/ Dextrose 250 ml @ 0 mls/hr TITRATE IV Last administered on 05/26 06:57; Start 05/03/17 at 02:00 Epinephrine HCl/ Dextrose (Adrenalin (1:1000) Inj/D5W Inj) 250 ml @ 30 mls/hr TITRATE IV Last administered on 05/04/17 09:43; Start 05/03/17 at 10:15; Stop 05/07/17 at 16:44; Status DC Calcium Acetate 2668 mg 2,668 mg TID PO Last administered on 05/25/17 18:22; Start 05/03/17 at 09:00 Epoprostenol Sodium/Sodium Chloride (Flolan (30,000 Ng/ml) Neb/NS Inj) 100 ml @ 8 mls/hr Q8H NEB Last administered on 05/04/17 00:17; Start 05/03/17 at 09:00 ; Stop 05/04/17 at 14:14; Status DC Lidocaine HCl 50 ml 50 ml STK-MED ONCE .ROUTE ; Start 05/03/17 at 12:21; Stop at 12:22; Status DC Epoprostenol Sodium 40 ml/ Sodium Chloride 100 ml @ 8 mls/hr Q8H NEB Last administered on 05/06/17 06:04; Start 05/04/17 at 15:00; Stop 05/06/17 at 12:43 ; Status DC Calcium Gluconate 2 gm/Dextrose 120 ml @ 120 mls/hr ONCE ONCE IV Last administered on 05/04/17 20:00; Start 05/04/17 at 20:00; Stop 05/04/17 at 20:59 ; Status DC Cefepime HCl/ Sodium Chloride (Maxipime Inj/NS Inj) 100 ml @ 200 mls/hr Q24H IV Last administered on 05/08/17 01:36; Start 05/06/17 at 03:00; Stop at 23:00; Status DC Allopurinol (Zyloprim) 200 mg DAILY PO Last administered on 05/25/17 12:08; Start 05/06/17 at 09:00 Artificial Tears (Tears Naturale Opth Soln) 1 drop Q8H EACH EYE Last administered on 05/07/17 10:06; Start 05/05/17 at 18:00; Stop 05/07/17 at 12:11 ; Status DC Fentanyl Citrate (fentaNYL INJ) 100 mcg STK-MED ONCE IV ; Start 04/22/17 at 12: 00; Stop 05/06/17 at 12:46; Status DC Propofol (Diprivan 200 Mg/20 ml Inj) 200 mg STK-MED ONCE IV ; Start 04/22/17 at 12:00; Stop 05/06/17 at 12:46; Status DC Phenylephrine HCl (Neosynephrine/ NS 1000 Mcg/10ml Syr) 1,000 mcg STK-MED ONCE IV ; Start 04/22/17 at 12:00; Stop 05/06/17 at 12:47; Status DC Ondansetron HCl (Zofran Inj) 4 mg STK-MED ONCE IV PUSH ; Start 04/22/17 at 12:00 ; Stop 05/06/17 at 12:47; Status DC Pantoprazole Sodium (Protonix Inj) 40 mg DAILY IV PUSH Last administered on 12:08; Start 05/07/17 at 12:00 Artificial Tears 1 applic 1 applic Q8H EACH EYE Last administered on 05/19/17 10:00; Start 05/07/17 at 18:00 Sodium Chloride (NS 1000 ml Inj) 1,000 ml @ 0 mls/hr TITRATE PRN IV WITH DIALYSIS Last administered on 05/22/17 12:08; Start 05/07/17 at 18:00 Heparin Sodium (Porcine) 8000 units 8,000 units UNSCH PRN IV FLUSH WITH DIALYSIS; Start 05/07/17 at 18:00 Sodium Chloride 1,000 ml @ 200 mls/hr Q5H PRN IV WITH DIALYSIS Last administered on 05/25/17 10:29; Start 05/07/17 at 18:00 Sodium Chloride (NS 250 ml Inj) 200 ml @ 0 mls/hr UNSCH PRN IV WITH DIALYSIS; Start 05/07/17 at 18:00 Mannitol (Mannitol Inj) 12.5 gm UNSCH PRN IV WITH DIALYSIS; Start 05/07/17 at 18:00 Albumin Human (Albumin 25% Inj) 25 gm UNSCH PRN IV WITH DIALYSIS; Start at 18:00 Sodium Chloride (NS Flush) 5 ml UNSCH PRN IV FLUSH WITH DIALYSIS Last administered on 05/25/17 03:50; Start 05/07/17 at 18:00 Heparin Sodium (Porcine) (Heparin Inj) Dwell Heparin to f... UNSCH PRN OTHER WITH DIALYSIS Last administered on 05/25/17 10:31; Start 05/07/17 at 18:00 Gentamicin Sulfate (Gentamicin (Dialysis) Inj) 10 mg UNSCH PRN OTHER WITH DIALYSIS Last administered on 05/25/17 10:29; Start 05/07/17 at 18:00 Gelatin (Gelfoam 12 Mm/7 Mm Top) 1 foam UNSCH PRN TOPICAL WITH DIALYSIS; Start 05/07/17 at 18:00 Ondansetron HCl (Zofran Inj) 4 mg UNSCH PRN IV NAUSEA OR VOMITING; Start at 18:00 Acetaminophen (Tylenol) 650 mg UNSCH X1 PRN PO WITH DIALYSIS Last administered on 05/08/17 10:07; Start 05/07/17 at 18:00; Stop 05/14/17 at 17:59; Status DC Diphenhydramine HCl (Benadryl) 25 mg UNSCH PRN PO WITH DIALYSIS; Start at 18:00 Nitroglycerin (Nitrostat Sl) 0.4 mg UNSCH PRN SL WITH DIALYSIS; Start 05/07/17 at 18:00 Clonidine (Catapres) 0.1 mg UNSCH PRN PO WITH DIALYSIS; Start 05/07/17 at 18:00 Polyethylene Glycol (Miralax) 17 gm DAILY PO Last administered on 05/10/17 07: 52; Start 05/08/17 at 09:00; Stop 05/13/17 at 17:16; Status DC Lactulose (Lactulose Liq) 30 ml BID PO Last administered on 05/10/17 07:51; Start 05/08/17 at 09:00; Stop 05/13/17 at 17:16; Status DC Bisacodyl (Dulcolax Supp) 10 mg DAILY PRN RECTAL CONSTIPATION; Start 05/08/17 at 08:15; Stop 05/08/17 at 08:16; Status DC Diatrizoate Meglum/ Diatrizoate Sod ( Gastroview Liq) 18 ml ONCE ONCE PO Last administered on 05/09/17 16:42; Start 05/09/17 at 14:15; Stop 05/09/17 at 14:16; Status DC Heparin Sodium (Porcine) 300 units 300 units NOW ONCE IV ; Start 05/09/17 at 18 :30; Stop 05/09/17 at 18:31; Status DC Potassium Chloride (KCl 20 Meq Premix Inj) 100 ml @ 50 mls/hr BOLUS ONCE IV Last administered on 05/10/17 13:31; Start 05/10/17 at 12:30; Stop 05/10/17 at 14:29; Status DC Sucralfate 1 gm 1 gm Q8HR PO Last administered on 05/13/17 04:46; Start at 14:00; Stop 05/13/17 at 13:59; Status DC Potassium Chloride (KCl 20 Meq Premix Inj) 100 ml @ 50 mls/hr ONCE ONCE IV Last administered on 05/11/17 08:54; Start 05/11/17 at 08:30; Stop 05/11/17 at 10:29; Status DC Metronidazole (Flagyl) 500 mg Q8HR PO Last administered on 05/25/17 05:32; Start 05/11/17 at 14:00; Stop 05/25/17 at 12:07; Status DC Morphine Sulfate 4 mg 4 mg NOW ONCE IV PUSH Last administered on 05/12/17 09: 58; Start 05/12/17 at 09:45; Stop 05/12/17 at 09:46; Status DC Potassium Chloride (KCl 40 Meq Premix Inj) 100 ml @ 25 mls/hr ONCE ONCE IV Last administered on 05/12/17 13:51; Start 05/12/17 at 13:45; Stop 05/12/17 at 17: 44; Status DC Vancomycin HCl (VANCOMYCIN for oral use only) 500 mg QID PO Last administered on 05/25/17 21:09; Start 05/13/17 at 13:00; Stop 05/25/17 at 23:00; Status DC Dronabinol (Marinol) 5 mg BID@11,16 PO Last administered on 05/25/17 16:09; Start 05/14/17 at 16:00 Heparin Sodium (Porcine) (*HEPARIN INJ Periprocedural ONLY) 10,000 units STK- MED ONCE .ROUTE Last administered on 05/15/17 15:50; Start 05/15/17 at 15:24; Stop 05/15/17 at 15:25; Status DC Sodium Chloride (NS Flush) UNSCH PRN IVF SEE PROTOCOL Last administered on 03:51; Start 05/15/17 at 16:00 Heparin Sodium (Porcine) (Heparin Inj) UNSCH PRN IV FLUSH SEE PROTOCOL; Start 05/15/17 at 16:00 Iohexol (Omnipaque 350 Inj) 10 ml STK-MED ONCE IV Last administered on 15:50; Start 05/15/17 at 20:42; Stop 05/15/17 at 20:43; Status DC Potassium Chloride (KCl) 30 meq ONCE ONCE PO Last administered on 05/16/17 11: 06; Start 05/16/17 at 09:00; Stop 05/16/17 at 09:01; Status DC Dexamethasone (Decadron) 40 mg ONCE ONCE PO ; Start 05/16/17 at 13:00; Stop 05/16 at 13:01; Status DC Potassium Chloride (KCl) 30 meq ONCE ONCE PO Last administered on 05/17/17 08: 57; Start 05/17/17 at 07:45; Stop 05/17/17 at 07:46; Status DC Potassium Chloride (KCl) 20 meq ONCE ONCE PO Last administered on 05/17/17 15: 00; Start 05/17/17 at 13:00; Stop 05/17/17 at 13:01; Status DC Granisetron HCl 1 mg 1 mg ONCE ONCE IV PUSH Last administered on 05/18/17 17: 02; Start 05/18/17 at 16:30; Stop 05/18/17 at 16:31; Status DC Dexamethasone Sodium Phosphate/ Sodium Chloride (Decadron Inj/NS Inj) 55 ml @ 220 mls/hr ONCE ONCE IV Last administered on 05/18/17 17:02; Start 05/18/17 at 16:30; Stop 05/18/17 at 16:44; Status DC Doxorubicin HCl 91 mg 91 mg ONCE ONCE IV PUSH Last administered on 05/18/17 17 :35; Start 05/18/17 at 17:00; Stop 05/18/17 at 17:01; Status DC Vincristine Sulfate 2 mg/ Sodium Chloride 52 ml @ 312 mls/hr ONCE ONCE IV Last administered on 05/18/17 17:50; Start 05/18/17 at 17:30; Stop 05/18/17 at 17: 39; Status DC Cyclophosphamide/ Sodium Chloride (Cytoxan Inj/NS 500 ml Inj) 500 ml @ 500 mls/ hr ONCE ONCE IV Last administered on 05/18/17 18:08; Start 05/18/17 at 18:00; Stop 05/18/17 at 18:59; Status DC Prednisone 91 mg 91 mg HS PO Last administered on 05/22/17 19:54; Start at 21:00; Stop 05/22/17 at 21:01; Status DC Sodium Chloride (NS 250 ml Inj) 250 ml @ 0 mls/hr ONCE ONCE IV Last administered on 05/18/17 17:00; Start 05/18/17 at 17:00; Stop 05/18/17 at 17:01; Status DC Warfarin Sodium (Coumadin) 1 mg DAILY@16 PO Last administered on 05/20/17 17:37 ; Start 05/19/17 at 16:00; Stop 05/21/17 at 12:42; Status DC Patient Medication Teaching (Coumadin Booklet) 1 ONCE ONCE OTHER Last administered on 05/19/17 16:00; Start 05/19/17 at 16:00; Stop 05/19/17 at 16:01; Status DC Warfarin Sodium 1 mg 1 mg NOW ONCE PO Last administered on 05/19/17 19:40; Start 05/19/17 at 19:45; Stop 05/19/17 at 19:46; Status DC Sodium Chloride (NS 250 ml Inj) 250 ml @ 15 mls/hr ONCE ONCE IV Last administered on 05/22/17 18:36; Start 05/20/17 at 10:00; Stop 05/21/17 at 02:39 ; Status DC Albuterol Sulfate (Ventolin Hfa Inh) 2 puff Q6HR INH ; Start 05/21/17 at 00:00 Warfarin Sodium (Coumadin) 2 mg DAILY@16 PO Last administered on 05/21/17 17: 27; Start 05/21/17 at 16:00; Stop 05/22/17 at 14:13; Status DC Epoetin Oleksandr (Epogen Inj) 10,000 units UNSCH PRN IV WITH DIALYSIS Last administered on 05/25/17 10:30; Start 05/21/17 at 18:30 Warfarin Sodium (Coumadin) 3 mg DAILY@16 PO Last administered on 05/22/17 18: 35; Start 05/22/17 at 16:00; Stop 05/23/17 at 12:26; Status DC Warfarin Sodium (Coumadin) 4 mg DAILY@16 PO Last administered on 05/25/17 16: 09; Start 05/23/17 at 16:00 Sodium Chloride (NS Flush) 5 ml UNSCH PRN IV FLUSH SEE PROTOCOL TABLE Last administered on 05/25/17 03:51; Start 05/24/17 at 06:45 Heparin Sodium (Porcine) (Heparin Central Flush) 250 units UNSCH PRN IV FLUSH SEE PROTOCOL TABLE; Start 05/24/17 at 06:45 Heparin Sodium (Porcine) 500 units 500 units UNSCH IV FLUSH ; Start 05/24/17 at 06:45 Sodium Chloride (NS 250 ml Inj) 250 ml @ 15 mls/hr ONCE ONCE IV ; Start at 10:00; Stop 05/26/17 at 02:39; Status DC Potassium Chloride (KCl) 20 meq ONCE ONCE PO Last administered on 05/25/17 12 :08; Start 05/25/17 at 11:00; Stop 05/25/17 at 11:10; Status DC A/P Assessment and Plan A/P Acute Hypoxic Respiratory Failure-resolved --stable on RA Acute Submassive Pulmonary Embolism Right Heart Dysfunction Global severe left ventricular systolic dysfunction Cardiogenic Shock-resolved -- 2d echo 05/02: EF 30-35%, RV dysfunction with dilation --Repeat ECHO limited study scheduled on 05/09-RV function appears to have normalized, question of interatrial shunt for which cardiology consulted-d/w Dr. Taveras, recommended that once off anticoagulation, would need to be on ASA and require f/u echo periodically for evaluation. Acute Kidney Injury-resolving. Hypokalemia- -- likely secondary to cardiogenic shock -HD on hold for now. - Nephrology following, Dr. Haley -replace electrolytes as needed. 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 --evaluated by General surgery and GI . -Expanded bowel regimen MiraLAX, lactulose. Large Cell B-cell lymphoma Pulmonary Embolism anemia of chronic disease C. difficile colitis -- hematology/oncology following Dr. Connelly-chemo with [facility] regimen initiated. -- continue heparin drip. continue coumadin-monitor PT/INR. -transfused with PRBC- H/H has improved- will monitor. -Epogen with HD. --finished the course of Vanco and Flagyl- continue PT. Prophylaxis: DVT: SCDs, heparin drip/coumadin Discharge Planning when INR is therapeutic and cleared by Nephrology/oncology. Catalina Eller MD May 26, 2017 08:24
[2017-05-26] MEDS ORDERED: POTASSIUM CHLORIDE 10 MEQ CONTROLLED RELEASE TAB PO ONE (08:30)
[2017-05-26 08:52] LABS: BANDS 2 % (0-6); CORRECTED NUCLEATED RBC 1 /100 WBC (0-0); EOSINOPHILS 3 % (0-4); NEUTROPHIL # MANUAL DIFF 1.1 TH/MM3 (1.8-7.7); POLYS (SEG NEUTROPHILS) 73 % (16-70); WBC DIFF SAMPLE 100
[2017-05-26 08:53] LABS: PLATELET ESTIMATE SMEAR NORMAL (NORMAL); PLATELET MORPHOLOGY NORMAL (NORMAL); SCAN/DIFF FINAL DIFF MANUAL
[2017-05-26] MEDS: NIFEdipine 90 MG SUSTAINED RELEASE TAB PO SCH (09:06)
[2017-05-26] MEDS: CALCIUM ACETATE 667 MG CAP PO SCH ×3 (09:06→17:09)
[2017-05-26] MEDS: ALLOPURINOL 100 MG TAB PO SCH (09:07)
[2017-05-26] MEDS: PANTOPRAZOLE SODIUM 40 MG VIAL IV PUSH SCH (09:09)
[2017-05-26] MEDS: DRONABINOL 5 MG CAP PO SCH ×2 (12:28→17:09)
[2017-05-26 13:09] LABS: INTERNATIONAL NORMALIZED RATIO 2.1 RATIO
--- NOTE | 2017-05-26 13:16 | PD.ONC.PN ---
Subjective Subjective Remarks Afebrile overnight. Patient resting in bed. Creatinine continuing to improve. Minimal appetite. + loose stools persistent. Objective Data Date Time Temp Pulse Resp B/P Pulse Ox O2 Delivery O2 Flow Rate FiO2 05/26/17 12:10 75 05/26/17 08:34 67 05/26/17 08:00 97.6 67 16 123/86 100 05/26/17 04:00 96.6 72 16 139/88 97 05/26/17 00:00 97.2 72 16 152/94 97 05/25/17 21:16 80 05/25/17 20:00 97.1 66 16 121/77 99 05/25/17 16:42 72 05/25/17 16:00 98.4 70 18 112/68 98 05/26/17 05/26/17 05/26/17 06:59 14:59 22:59 Output Total 500 ml Balance -500 ml Result Diagram: 05/26/17 0430 05/26/17 0430 Laboratory Results Laboratory Tests Test 05/25/17 05/26/17 05/26/17 14:43 04:30 12:25 Prothrombin Time 17.4 SEC 24.0 SEC Prothromb Time International 1.5 RATIO 2.1 RATIO Ratio Activated Partial 45.3 SEC Thromboplast Time White Blood Count 1.5 TH/MM3 Red Blood Count 3.65 MIL/MM3 Hemoglobin 10.9 GM/DL Hematocrit 31.5 % Mean Corpuscular Volume 86.3 FL Mean Corpuscular Hemoglobin 29.8 PG Mean Corpuscular Hemoglobin 34.6 % Concent Red Cell Distribution Width 15.6 % Platelet Count 155 TH/MM3 Mean Platelet Volume 6.8 FL Neutrophils (%) (Auto) 72.4 % Lymphocytes (%) (Auto) 21.9 % Monocytes (%) (Auto) 1.6 % Eosinophils (%) (Auto) 3.2 % Basophils (%) (Auto) 0.9 % Neutrophils # (Auto) 1.1 TH/MM3 Lymphocytes # (Auto) 0.3 TH/MM3 Monocytes # (Auto) 0.0 TH/MM3 Eosinophils # (Auto) 0.0 TH/MM3 Basophils # (Auto) 0.0 TH/MM3 CBC Comment AUTO DIFF Differential Total Cells 100 Counted Neutrophils % (Manual) 73 % Band Neutrophils % 2 % Lymphocytes % 21 % Monocytes % 1 % Eosinophils % 3 % Neutrophils # (Manual) 1.1 TH/MM3 Nucleated Red Blood Cells 1 /100 WBC Differential Comment FINAL DIFF MANUAL Platelet Estimate NORMAL Platelet Morphology Comment NORMAL Red Cell Morphology Comment NORMAL Sodium Level 140 MEQ/L Potassium Level 3.2 MEQ/L Chloride Level 103 MEQ/L Carbon Dioxide Level 33.1 MEQ/L Anion Gap 4 MEQ/L Blood Urea Nitrogen 14 MG/DL Creatinine 0.90 MG/DL Estimat Glomerular Filtration 109 ML/MIN Rate Random Glucose 94 MG/DL Calcium Level 7.7 MG/DL Administered Medications Medications (Trade) Dose Ordered Sig/Shyla Route PRN Reason Start Time Stop Time Status Last Admin Dose Admin Sodium Chloride (NS Flush) 2 ml UNSCH PRN IV FLUSH FLUSH AFTER USING IV ACCESS 04/18/17 17:30 05/24/17 21:18 Hydralazine HCl (Apresoline Inj) 10 mg Q6HR PRN IV PUSH SBP>160, DBP>90 04/21/17 17:00 04/27/17 10:15 Nifedipine (Procardia Xl) 90 mg DAILY PO 04/28/17 09:00 05/26/17 09:06 Clonidine (Catapres) 0.1 mg Q6H PRN PO SBP>160, DBP>90 04/27/17 15:00 04/29/17 08:07 Ondansetron HCl (Zofran Inj) 4 mg Q6HR PRN IV PUSH NAUSEA OR VOMITING 04/30/17 11:30 05/07/17 10:06 Promethazine HCl (Phenergan Inj) 25 mg Q6H PRN IM NAUSEA OR VOMITING 04/30/17 11:30 05/01/17 13:27 Acetaminophen/ Hydrocodone Bitart ([place] 5-325 Mg) 1 tab Q6H PRN PO PAIN SCALE 1 TO 10 04/30/17 11:30 05/12/17 02:48 Chlorhexidine Gluconate 15 ml 15 ml BID@08,20 MT 05/02/17 20:00 05/20/17 20:00 Fentanyl Citrate 250 ml @ 0 mls/hr TITRATE IV 05/02/17 10:00 05/10/17 05:36 Propofol (Diprivan 1000 Mg/100ml Inj) 100 ml @ 0 mls/hr TITRATE IV 05/02/17 10:00 05/10/17 06:54 Miscellaneous Information Patient in critical care unit? Ass... [id number] .XX 05/02/17 17:15 05/02/17 17:30 Heparin Sodium/ Dextrose (Heparin-D5W Inj) 250 ml @ 0 mls/hr TITRATE IV 05/03/17 02:00 05/26/17 06:57 Calcium Acetate (Phoslo) 2,668 mg TID PO 05/03/17 09:00 05/26/17 12:28 Allopurinol (Zyloprim) 200 mg DAILY PO 05/06/17 09:00 05/26/17 09:07 Pantoprazole Sodium (Protonix Inj) 40 mg DAILY IV PUSH 05/07/17 12:00 05/26/17 09:09 Artificial Tears 1 applic 1 applic Q8H EACH EYE 05/07/17 18:00 05/19/17 10:00 Sodium Chloride 1,000 ml @ 0 mls/hr TITRATE PRN IV WITH DIALYSIS 05/07/17 18:00 05/22/17 12:08 Sodium Chloride (NS 1000 ml Inj) 1,000 ml @ 200 mls/hr Q5H PRN IV WITH DIALYSIS 05/07/17 18:00 05/25/17 10:29 Sodium Chloride (NS Flush) 5 ml UNSCH PRN IV FLUSH WITH DIALYSIS 05/07/17 18:00 05/25/17 03:50 Heparin Sodium (Porcine) (Heparin Inj) Dwell Heparin to f... UNSCH PRN OTHER WITH DIALYSIS 05/07/17 18:00 05/25/17 10:31 Gentamicin Sulfate (Gentamicin (Dialysis) Inj) 10 mg UNSCH PRN OTHER WITH DIALYSIS 05/07/17 18:00 05/25/17 10:29 Dronabinol (Marinol) 5 mg BID@11,16 PO 05/14/17 16:00 05/26/17 12:28 Sodium Chloride (NS Flush) UNSCH PRN IVF SEE PROTOCOL 05/15/17 16:00 05/25/17 03:51 Epoetin Oleksandr (Epogen Inj) 10,000 units UNSCH PRN IV WITH DIALYSIS 05/21/17 18:30 05/25/17 10:30 Warfarin Sodium (Coumadin) 4 mg DAILY@16 PO 05/23/17 16:00 05/25/17 16:09 Sodium Chloride (NS Flush) 5 ml UNSCH PRN IV FLUSH SEE PROTOCOL TABLE 05/24/17 06:45 05/25/17 03:51 Objective Remarks GENERAL: Thin male sitting up in bed SKIN: Warm and dry. vas-cath, left neck. HEAD: Normocephalic. EYES: No injection or drainage. NECK: Supple, trachea midline. CARDIOVASCULAR: +S1/S2 RESPIRATORY: Breath sounds equal bilaterally. No accessory muscle use. GASTROINTESTINAL: Abdomen soft, non-tender, nondistended. EXTREMITIES: No cyanosis, or edema. NEUROLOGICAL: awake and alert, normal speech Assessment/Plan Problem List: (1) Non-Hodgkin lymphoma Status: Acute Plan: --Has aggressive triple hit lymphoma. --Received Rituxan x1. --Neck adenopathy relatively stable. --05/18-->[facility] chemotherapy (2) Pulmonary emboli Status: Acute Plan: --on heparin gtt-->coumadin --CTA showed large PE --s/p tpa therapy on 05.02. now on heparin gtt. (3) Normocytic anemia Status: Acute Plan: --multifactorial due to chronic disease, renal failure --monitor and transfuse as needed Assessment 47y/o male admitted with pancreatitis, found to have NHL. Plan 1. continue heparin bridge to coumadin (will wait until INR is therapeutic for two days before stopping heparin) 2. monitor CBC 3. evaluate for lug[facility] rehab 4. start Neupogen Attending Statement The exam, history, and the medical decision-making described in the above note were completed with the assistance of the mid-level provider. I reviewed and agree with the findings presented. I attest that I had a [id number] encounter with the patient on the same day, and personally performed and documented my assessment and findings in the medical record. Feeling better. Renal function has recovered. Neck mass and left axillary masses are smaller and softer.Ontinue to bridge to coumadin. Start neupogen for leukopenia. Problem Qualifiers (1) Non-Hodgkin lymphoma: Brenda Platt May 26, 2017 13:16 Ruslan Connelly MD May 26, 2017 17:13
[2017-05-26 14:31] LABS: APTT (PATIENT) 48.7 SEC (24.3-30.1)
[2017-05-26] MEDS: WARFARIN SOD 4 MG TAB PO SCH (15:08)
[2017-05-26] MEDS: FILGRASTIM INJ 300 MCG in DEXTROSE 5% IN WATER INJ 24 ML IV SCH ×2 (15:08)
--- NOTE | 2017-05-26 17:04 | HHI.NPPN ---
Subjective History of Present Illness 47-year-old male with no known past medical history who came to the hospital with complaint of nausea, vomiting and abdominal pain on April 18. I was called to see the patient because of elevated BUN and creatinine. The patient had a creatinine of 1.3 on presentation which improved to 0.7 and 0.8, then started increasing for last few days. Additional Remarks Patient is alert,no SOB, eating better, not in distress. Objective Data Data 05/25/17 05/26/17 19:00 07:00 Intake Total 440 ml 60 ml Output Total 2550 ml 625 ml Balance -2110 ml -565 ml Intake Oral 360 ml 60 ml IV Total 80 ml Output Urine Total 550 ml 625 ml Hemodialysis 2000 ml # Bowel Movements 1 Vital Signs Date Time Temp Pulse Resp B/P Pulse Ox O2 Delivery O2 Flow Rate FiO2 05/26/17 16:07 79 05/26/17 12:10 75 05/26/17 12:00 97.4 78 18 112/72 97 05/26/17 08:34 67 05/26/17 08:00 97.6 67 16 123/86 100 05/26/17 04:00 96.6 72 16 139/88 97 05/26/17 00:00 97.2 72 16 152/94 97 05/25/17 21:16 80 05/25/17 20:00 97.1 66 16 121/77 99 -: 05/26/17 0430 05/26/17 0430 Physical Exam General Appearance: Malnourished Eyes Eye Exam: Pupils Equal Throat Throat Exam: Oral Mucosa Bray & Moist Pulmonary Resp Exam: Crackles, Rhonchi, Decreased Bases, Diminished Breath Sounds, Poor Inspiratory Effort Cardiology CV Exam: Regular, Normal Sinus Rhythm Gastrointestinal/Abdomen GI Exam: Soft, Non-Tender, Bowel Sounds Present, Distended Extremeties Extremities Exam: Trace Edema Neurologic Neuro Exam: Awake Assessment/Plan Assessment Summary: ALDO/Acute Renal Failure Problem List: (1) Non-Hodgkin lymphoma Plan: Hematology following, need for chemotherapy in the future. (2) Adenopathy (3) Pleural effusion (4) Shortness of breath (5) Pulmonary emboli Plan: on anticoagulation. (6) Acute pancreatitis (7) ALDO (acute kidney injury) Plan: He has become dialysis dependent. Plan Multiple medical problems, alcohol induced pancreatitis. Urine out put is improving. Creatinine is better. Has improvement in the kidney function. D/C Vascath, I will follow up as needed. Problem Qualifiers (1) Non-Hodgkin lymphoma: (2) Acute pancreatitis: Qualified Code: K85.20 - Alcohol-induced acute pancreatitis, unspecified complication status Leonid Haley MD May 26, 2017 17:04
[2017-05-27] VITALS (7 sets, daily range): BP systolic 118–144; BP diastolic 77–88; PULSE 57–85; RESP 16–18; TEMP 97.1–98.4; O2SAT 95–100
[2017-05-27] MEDS: ARTIFICIAL TEARS OPTH OINT 3.5 APPLIC/3.5 GM TUBO EACH EYE SCH ×3 (02:00→18:20)
[2017-05-27] MEDS: ALBUTEROL SULFATE 90 MCG/ACT HFA 18 GM INHALER INH SCH ×4 (05:14→16:17)
[2017-05-27 06:43] LABS: AUTOMATED NEUTROPHIL # 1.7 TH/MM3 (1.8-7.7); BASOPHIL % 1.6 % (0.0-2.0); LYMPH % 16.8 % (9.0-44.0); LYMPHOCYTE # 0.4 TH/MM3 (1.0-4.8); MEAN CELL VOLUME 87.3 FL (80.0-100.0); MEAN CORPUSCULAR HGB CONC 34.4 % (32.0-36.0); MONO % 3.3 % (0.0-8.0); NEUT % 77.3 % (16.0-70.0); PLATELET COUNT 130 TH/MM3 (150-450); RED BLOOD COUNT 3.44 MIL/MM3 (4.50-5.90); RED CELL DISTRIBUTION WIDTH 15.6 % (11.6-17.2); WHITE BLOOD COUNT 2.2 TH/MM3 (4.0-11.0)
[2017-05-27 06:55] LABS: APTT (PATIENT) 56.6 SEC (24.3-30.1)
[2017-05-27 07:07] LABS: BICARBONATE 29.6 MEQ/L (21.0-32.0); HEMO FLAGS AUTO DIFF; POTASSIUM 3.2 MEQ/L (3.5-5.1)
[2017-05-27 07:12] LABS: INTERNATIONAL NORMALIZED RATIO 2.6 RATIO; PROTHROMBIN TIME - PATIENT 29.5 SEC (9.8-11.6)
[2017-05-27 07:22] LABS: CALCIUM-PROTEIN CORRECTED 8.5 MG/DL (8.5-10.1)
[2017-05-27] MEDS: CHLORHEXIDINE 0.12% (ORAL KIT) 15 ML CUP MT SCH ×2 (08:00→20:00)
--- NOTE | 2017-05-27 08:07 | PD.ONC.PN ---
Subjective Subjective Remarks Afebrile overnight Resting in bed watching TV in no distress Patient states he sat up on side of bed with physical therapy yesterday Objective Data Date Time Temp Pulse Resp B/P Pulse Ox O2 Delivery O2 Flow Rate FiO2 05/27/17 04:00 97.1 69 16 134/88 98 05/27/17 00:00 97.8 57 16 144/85 97 05/26/17 22:00 83 05/26/17 20:00 97.5 83 16 115/76 96 05/26/17 16:07 79 05/26/17 16:00 97.7 72 18 125/71 100 05/26/17 12:10 75 05/26/17 12:00 97.4 78 18 112/72 97 05/26/17 08:34 67 05/27/17 05/27/17 05/27/17 07:00 15:00 23:00 Intake Total 200 ml Output Total 300 ml Balance -100 ml Result Diagram: 05/27/1714 05/27/17613 Laboratory Results Laboratory Tests Test 05/26/17 05/27/17 12:25 06:14 Prothrombin Time 24.0 SEC 29.5 SEC Prothromb Time International 2.1 RATIO 2.6 RATIO Ratio Activated Partial 48.7 SEC 56.6 SEC Thromboplast Time White Blood Count 2.2 TH/MM3 Red Blood Count 3.44 MIL/MM3 Hemoglobin 10.3 GM/DL Hematocrit 30.0 % Mean Corpuscular Volume 87.3 FL Mean Corpuscular Hemoglobin 30.0 PG Mean Corpuscular Hemoglobin 34.4 % Concent Red Cell Distribution Width 15.6 % Platelet Count 130 TH/MM3 Mean Platelet Volume 7.3 FL Neutrophils (%) (Auto) 77.3 % Lymphocytes (%) (Auto) 16.8 % Monocytes (%) (Auto) 3.3 % Eosinophils (%) (Auto) 1.0 % Basophils (%) (Auto) 1.6 % Neutrophils # (Auto) 1.7 TH/MM3 Lymphocytes # (Auto) 0.4 TH/MM3 Monocytes # (Auto) 0.1 TH/MM3 Eosinophils # (Auto) 0.0 TH/MM3 Basophils # (Auto) 0.0 TH/MM3 CBC Comment AUTO DIFF Sodium Level 139 MEQ/L Potassium Level 3.2 MEQ/L Chloride Level 103 MEQ/L Carbon Dioxide Level 29.6 MEQ/L Anion Gap 6 MEQ/L Blood Urea Nitrogen 9 MG/DL Creatinine 0.80 MG/DL Estimat Glomerular Filtration 125 ML/MIN Rate Random Glucose 91 MG/DL Calcium Level 7.4 MG/DL Protein Corrected Calcium 8.5 MG/DL Total Protein 5.2 GM/DL Administered Medications Medications (Trade) Dose Ordered Sig/Shyla Route PRN Reason Start Time Stop Time Status Last Admin Dose Admin Sodium Chloride (NS Flush) 2 ml UNSCH PRN IV FLUSH FLUSH AFTER USING IV ACCESS 04/18/17 17:30 05/24/17 21:18 Hydralazine HCl (Apresoline Inj) 10 mg Q6HR PRN IV PUSH SBP>160, DBP>90 04/21/17 17:00 04/27/17 10:15 Nifedipine (Procardia Xl) 90 mg DAILY PO 04/28/17 09:00 05/26/17 09:06 Clonidine (Catapres) 0.1 mg Q6H PRN PO SBP>160, DBP>90 04/27/17 15:00 04/29/17 08:07 Ondansetron HCl (Zofran Inj) 4 mg Q6HR PRN IV PUSH NAUSEA OR VOMITING 04/30/17 11:30 05/07/17 10:06 Promethazine HCl (Phenergan Inj) 25 mg Q6H PRN IM NAUSEA OR VOMITING 04/30/17 11:30 05/01/17 13:27 Acetaminophen/ Hydrocodone Bitart ([place] 5-325 Mg) 1 tab Q6H PRN PO PAIN SCALE 1 TO 10 04/30/17 11:30 05/12/17 02:48 Chlorhexidine Gluconate 15 ml 15 ml BID@08,20 MT 05/02/17 20:00 05/20/17 20:00 Fentanyl Citrate 250 ml @ 0 mls/hr TITRATE IV 05/02/17 10:00 05/10/17 05:36 Propofol (Diprivan 1000 Mg/100ml Inj) 100 ml @ 0 mls/hr TITRATE IV 05/02/17 10:00 05/10/17 06:54 Miscellaneous Information Patient in critical care unit? Ass... Q361D .XX 05/02/17 17:15 05/02/17 17:30 Calcium Acetate (Phoslo) 2,668 mg TID PO 05/03/17 09:00 05/26/17 17:09 Allopurinol (Zyloprim) 200 mg DAILY PO 05/06/17 09:00 05/26/17 09:07 Pantoprazole Sodium (Protonix Inj) 40 mg DAILY IV PUSH 05/07/17 12:00 05/26/17 09:09 Artificial Tears 1 applic 1 applic Q8H EACH EYE 05/07/17 18:00 05/19/17 10:00 Sodium Chloride 1,000 ml @ 0 mls/hr TITRATE PRN IV WITH DIALYSIS 05/07/17 18:00 05/22/17 12:08 Sodium Chloride (NS 1000 ml Inj) 1,000 ml @ 200 mls/hr Q5H PRN IV WITH DIALYSIS 05/07/17 18:00 05/25/17 10:29 Sodium Chloride (NS Flush) 5 ml UNSCH PRN IV FLUSH WITH DIALYSIS 05/07/17 18:00 05/25/17 03:50 Heparin Sodium (Porcine) (Heparin Inj) Dwell Heparin to f... UNSCH PRN OTHER WITH DIALYSIS 05/07/17 18:00 05/25/17 10:31 Gentamicin Sulfate (Gentamicin (Dialysis) Inj) 10 mg UNSCH PRN OTHER WITH DIALYSIS 05/07/17 18:00 05/25/17 10:29 Dronabinol (Marinol) 5 mg BID@11,16 PO 05/14/17 16:00 05/26/17 17:09 Sodium Chloride (NS Flush) UNSCH PRN IVF SEE PROTOCOL 05/15/17 16:00 05/25/17 03:51 Epoetin Oleksandr (Epogen Inj) 10,000 units UNSCH PRN IV WITH DIALYSIS 05/21/17 18:30 05/25/17 10:30 Warfarin Sodium (Coumadin) 4 mg DAILY@16 PO 05/23/17 16:00 05/26/17 15:08 Sodium Chloride 5 ml 5 ml UNSCH PRN IV FLUSH SEE PROTOCOL TABLE 05/24/17 06:45 05/25/17 03:51 Filgrastim/ Dextrose (Neupogen Inj/ D5W Inj) 25 ml @ 100 mls/hr DAILY@14 IV 05/26/17 15:00 05/26/17 15:08 Objective Remarks GENERAL: Thin male resting in bed in no distress. SKIN: Warm and dry. Vas-cath, left neck. HEAD: Normocephalic. EYES: No injection or drainage. NECK: Supple, trachea midline. CARDIOVASCULAR: +S1/S2 RESPIRATORY: Breath sounds equal bilaterally. No accessory muscle use. GASTROINTESTINAL: Abdomen soft, non-tender, nondistended. EXTREMITIES: No cyanosis, or edema. NEUROLOGICAL: Awake and alert, normal speech. . Assessment/Plan Problem List: (1) Non-Hodgkin lymphoma Status: Acute Plan: --Has aggressive triple hit lymphoma. --Received Rituxan x1. --Neck adenopathy relatively stable. --05/18-->[facility] chemotherapy -- Will likely receive EPOCH chemotherapy on 06/08. (2) Pulmonary emboli Status: Acute Plan: --on heparin gtt-->coumadin --CTA showed large PE --s/p tpa therapy on 05.02. now on heparin gtt. (3) Normocytic anemia Status: Acute Plan: --multifactorial due to chronic disease, renal failure --monitor and transfuse as needed Assessment 47y/o male admitted with pancreatitis, found to have NHL. Plan 1. Stop heparin drip; INR has been therapeutic for 2 days. 2. Continue Neupogen 3. Due to the aggressive lymphoma, we will give EPOCH chemotherapy June 08 (3 weeks after last [facility]). 4. Monitor CBC. Attending Statement The exam, history, and the medical decision-making described in the above note were completed with the assistance of the mid-level provider. I reviewed and agree with the findings presented. I attest that I had a [id number] encounter with the patient on the same day, and personally performed and documented my assessment and findings in the medical record. Still weak. INR therapeutic. Stop heparin. Neck and axillary masses stable. Plan [facility]+ Rituxan 06/08 inpatient. Problem Qualifiers (1) Non-Hodgkin lymphoma: Tia Montenegro May 27, 2017 08:07 Ruslan Connelly MD May 27, 2017 16:52
[2017-05-27] MEDS: ALLOPURINOL 100 MG TAB PO SCH (08:09)
[2017-05-27] MEDS: CALCIUM ACETATE 667 MG CAP PO SCH ×2 (08:09→12:23)
[2017-05-27] MEDS: NIFEdipine 90 MG SUSTAINED RELEASE TAB PO SCH (08:10)
[2017-05-27] MEDS: PANTOPRAZOLE SODIUM 40 MG VIAL IV PUSH SCH (08:10)
[2017-05-27] MEDS ORDERED: POTASSIUM CHLORIDE 10 MEQ CONTROLLED RELEASE TAB PO ONE (08:15)
--- NOTE | 2017-05-27 08:16 | HHI.PR ---
Subjective Remarks resting comfortably with no distress. denies pain. no new complaints. d/w the RN. Objective Vitals Vital Signs Date Time Temp Pulse Resp B/P Pulse Ox O2 Delivery O2 Flow Rate FiO2 05/27/17 04:00 97.1 69 16 134/88 98 05/27/17 00:00 97.8 57 16 144/85 97 05/26/17 22:00 83 05/26/17 20:00 97.5 83 16 115/76 96 05/26/17 16:07 79 05/26/17 16:00 97.7 72 18 125/71 100 05/26/17 12:10 75 05/26/17 12:00 97.4 78 18 112/72 97 05/26/17 08:34 67 I/O 05/26/17 05/26/17 05/26/17 05/27/17 05/27/17 05/27/17 07:00 15:00 23:00 07:00 15:00 23:00 Intake Total 79 ml 200 ml 200 ml Output Total 500 ml 600 ml 300 ml Balance -500 ml 79 ml -400 ml -100 ml Intake Oral 200 ml 200 ml IV Total 79 ml Output Urine Total 500 ml 600 ml 300 ml # Bowel Movements 1 0 0 Result Diagram: 05/27/1761305/27/17613 Imaging Last Impressions Chest X-Ray 05/21/17599 Signed Impressions: Service Date/Time: May 06:05 - CONCLUSION: Bibasilar opacities the majority represent effusion appreciated without posterior left lower lobe retrocardiac density consolidation atelectasis versus infiltrate there was underlying in the right medial base suggesting air fluid level the possibility of cavitary lesion with air-fluid level cannot be excluded. There is persistent mediastinal mass widening. Stanford Mcdonough MD Abdomen X-Ray 05/15/17599 Draft Impressions: Service Date/Time: Monday, May 15, 2017 04:29 - CONCLUSION: Findings of mild small bowel ileus. There has been no significant change when compared to the prior exam. Jadon Carroll MD Central Venous Line 05/15/17 0000 Signed Impressions: Service Date/Time: Monday, May 15, 2017 00:00 - CONCLUSION: Uncomplicated catheter removal. Bryon Calero Jr., MD Catheter Placement X-Ray 05/15/17 0000 Signed Impressions: Service Date/Time: Monday, May 15, 2017 15:13 - CONCLUSION: Mild narrowing involving the brachiocephalic vein near its junction with the SVC. This is not flow limiting. A left-sided vas catheter was placed. Bryon Calero Jr., MD Abdomen/Pelvis CT 05/09/17 0000 Signed Impressions: Service Date/Time: Tuesday, May 09, 2017 21:16 - CONCLUSION: 1. Diffusely distended loops of small bowel down to the cecum suggest ileus. 2. Evidence of mesenteric and retroperitoneal adenopathy. 3. Large bilateral pleural effusions , moderate amount of free fluid in the pelvis and mild ascites in the upper abdomen. 4. Abnormal appearance to the parenchyma of the right kidney with patchy areas of hyperdensity in a mosaic pattern. This of uncertain significance. The patient had iodinated contrast for a CT pulmonary angiogram 7 days ago; this could potentially represent residual parenchymal contrast which would be nonspecific, but raises the possibility of either obstruction or renal infarctions. Bryon Evans MD Renal Ultrasound 05/05/17 0000 Signed Impressions: Service Date/Time: Friday, May 05, 2017 20:06 - CONCLUSION: 1. Kidneys are borderline echogenic which can be seen with medical renal disease. 2. No evidence of hydronephrosis. 3. Abdominal ascites. 4. Multiple dilated bowel loops. 5. Bilateral pleural effusions. Tray Patel MD Head CT 05/03/17 0000 Signed Impressions: Service Date/Time: Wednesday, May 03, 2017 17:22 - CONCLUSION: No acute intracranial disease. No hemorrhage seen. Tray Patel MD CT Angiography 05/02/17 0000 Signed Impressions: Service Date/Time: Tuesday, May 02, 2017 11:10 - CONCLUSION: 1. There is pulmonary embolus in the right pulmonary artery, right upper lobe and lower lobe branches. 2. Resorption of previously seen gas in the left axilla with fluid collection at this site with postprocedural change and possibly postprocedural hemorrhage not significantly changed in size. 3. Interval development of right lung airspace process may represent postobstructive pneumonia and there is mucus within the trachea not present yesterday. 4. Right pleural effusion is smaller and left pleural effusion is larger. 5. No change in bulky adenopathy. Leonor Chavez MD Upper Extremity Ultrasound 04/30/17 0000 Signed Impressions: Service Date/Time: April 12:25 - CONCLUSION: There some superficial thrombosis of a vein in the forearm. The deep venous system is patent. Large fluid collection left axilla. Significant soft tissue edema throughout the upper arm. Rinku Hillman MD Thoracentesis Ultrasound 04/30/17 0000 Signed Impressions: Service Date/Time: April 12:14 - CONCLUSION: Uncomplicated ultrasound guided thoracentesis. Tray Patel MD Port Line Insertion 04/27/17 0000 Signed Impressions: Service Date/Time: Thursday, April 27, 2017 14:56 - CONCLUSION: 1. Bulky bilateral lower cervical lymphadenopathy. 2. Uncomplicated ultrasound and fluoroscopic guided implanted central venous port catheter placement as described in detail above. An 8 [employer] port was placed. Liang Peralta MD Bone Biopsy CT 04/27/17 0000 Signed Impressions: Service Date/Time: Thursday, April 27, 2017 16:22 - CONCLUSION: 1. Uncomplicated CT guided bone marrow aspirate. 2. Uncomplicated CT guided bone marrow biopsy. Tray Patel MD Chest CT 04/25/17 0000 Signed Impressions: Service Date/Time: Wednesday, April 26, 2017 19:00 - CONCLUSION: The right pleural effusion is slightly larger on the left side has not changed. Extensive bulky adenopathy as before and malignancies such as lymphoma is suspected. Leonor Chavez MD Gall Bladder Ultrasound 04/22/17 0000 Signed Impressions: Service Date/Time: Saturday, April 22, 2017 07:35 - CONCLUSION: Small liver with focal abdomen only incompletely evaluated. Large right pleural effusion. effusion. Kirk Briceño MD FACR Abdomen CT 04/20/17 0000 Signed Impressions: Service Date/Time: Thursday, April 20, 2017 19:40 - CONCLUSION: Limited exam because of lack of intravenous contrast. Lymphoma is suspected. Pathological diagnosis could be obtained with ultrasound biopsy of the cervical, axillary or inguinal adenopathy. Kirk Briceño MD FACR Objective Remarks GENERAL: in no acute distress CARDIOVASCULAR: Regular rate and regular rhythm without murmurs, gallops, or rubs. RESPIRATORY: Clear to auscultation. Breath sounds equal bilaterally. No wheezes , rales, or rhonchi. GASTROINTESTINAL: Abdomen soft, non-tender, nondistended. Normal, active bowel sounds MUSCULOSKELETAL: Extremities without clubbing, cyanosis, or edema. NEURO: awake and alert Procedures 04/[address] excision biopsy 04/27- port placement 05/02-TPA 05/06-left IJ Vas-Cath placement endotracheal intubation Medications and IVs Current Medications Ondansetron HCl 4 mg 4 mg ONCE ONCE IVP Last administered on 04/18/17 17:38; Start 04/18/17 at 17:30; Stop 04/18/17 at 17:31; Status DC Sodium Chloride (NS 1000 ml Inj) 1,000 ml @ 1,000 mls/hr Q1H IV Last administered on 04/18/17 17:38; Start 04/18/17 at 17:16; Stop 04/18/17 at 18:15; Status DC Sodium Chloride 2 ml 2 ml UNSCH PRN IV FLUSH FLUSH AFTER USING IV ACCESS Last administered on 05/24/17 21:18; Start 04/18/17 at 17:30 Sodium Chloride 1,000 ml @ 1,000 mls/hr Q1H IV Last administered on 04/18/17 18:40; Start 04/18/17 at 18:37; Stop 04/18/17 at 19:36; Status DC Potassium Chloride (KCl 20 Meq Premix Inj) 100 ml @ 50 mls/hr Q2H IV Last administered on 04/18/17 22:12; Start 04/18/17 at 19:00; Stop 04/18/17 at 22:59; Status DC Ondansetron HCl (Zofran Inj) 4 mg Q6H PRN IVP NAUSEA OR VOMITING Last administered on 04/26/17 06:04; Start 04/18/17 at 19:30; Stop 04/26/17 at 13:02 ; Status DC Morphine Sulfate (Morphine Inj) 2 mg Q3H PRN IV Pain 3-5; if unable to take PO ; Start 04/18/17 at 19:30; Status Cancel Morphine Sulfate (Morphine Inj) 4 mg Q3H PRN IV Pain 6-10;if unable to take PO ; Start 04/18/17 at 19:30; Status Cancel Naloxone HCl (Narcan Inj) 0.4 mg UNSCH PRN IV SEE LABEL COMMENTS; Start at 19:30 Senna/Docusate Sodium (Porsha-Colace) 1 tab BID PO Last administered on 07:52; Start 04/18/17 at 21:00; Stop 05/13/17 at 17:16; Status DC Magnesium Hydroxide (Milk Of Magnesia Liq) 30 ml Q12H PRN PO MILD - MODERATE CONSTIPATION Last administered on 05/09/17 08:01; Start 04/18/17 at 19:30; Stop 05/13/17 at 17:16; Status DC Sennosides (Senokot) 17.2 mg Q12H PRN PO MODERATE - SEVERE CONSTIPATION; Start 04/18/17 at 19:30; Stop 05/13/17 at 17:16; Status DC Bisacodyl (Dulcolax Supp) 10 mg DAILY PRN RECTAL SEVERE CONSITIPATION; Start at 19:30; Stop 05/13/17 at 17:16; Status DC Lactulose 30 ml 30 ml DAILY PRN PO SEVERE CONSITIPATION; Start 04/18/17 at 19:30 ; Stop 05/13/17 at 17:16; Status DC Potassium Chloride/Sodium Chloride 1,000 ml @ 125 mls/hr Q8H IV ; Start at 21:00; Stop 04/18/17 at 21:00; Status DC Potassium Chloride/Sodium Chloride 1,000 ml @ 83 mls/hr Q12H3M IV Last administered on 04/23/17 01:19; Start 04/19/17 at 02:00; Stop 04/23/17 at 09:04 ; Status DC Sodium Chloride (NS 1000 ml Inj) 1,000 ml @ 125 mls/hr Q8H IV Last administered on 04/18/17 20:00; Start 04/18/17 at 20:00; Stop 04/19/17 at 16:01; Status DC Pneumococcal Polyvalent Vaccine 25 mcg 25 mcg ONCE ONCE IM Last administered on 04/19/17 11:20; Start 04/19/17 at 09:00; Stop 04/19/17 at 09:01; Status DC Ceftriaxone Sodium/Sodium Chloride (Rocephin Inj/NS Inj) 100 ml @ 200 mls/hr Q24H IV Last administered on 04/24/17 12:51; Start 04/19/17 at 13:00; Stop at 14:33; Status DC Heparin Sodium (Porcine) (Heparin Inj) 5,000 units Q8HR SQ Last administered on 05/02/17 12:46; Start 04/19/17 at 14:00; Stop 05/19/17 at 10:23; Status DC Azithromycin (Zithromax) 500 mg Q24H PO Last administered on 04/24/17 12:51; Start 04/19/17 at 13:00; Stop 04/24/17 at 14:33; Status DC Clonidine (Catapres) 0.1 mg ONCE ONCE PO Last administered on 04/20/17 22:16 ; Start 04/20/17 at 21:45; Stop 04/20/17 at 21:46; Status DC Nifedipine (Procardia Xl) 30 mg DAILY PO Last administered on 04/25/17 09:42; Start 04/21/17 at 17:00; Stop 04/25/17 at 13:12; Status DC Hydralazine HCl 10 mg 10 mg Q6HR PRN IV PUSH SBP>160, DBP>90 Last administered on 04/27/17 10:15; Start 04/21/17 at 17:00 Cefazolin Sodium/ Sodium Chloride (Ancef Inj/NS Inj) 100 ml @ 200 mls/hr MARKET INVESTIGATOR IV ; Start 04/21/17 at 21:30; Stop 04/24/17 at 21:29; Status DC Midazolam HCl (Versed Inj) 2 mg STK-MED ONCE .ROUTE Last administered on 09:02; Start 04/22/17 at 09:02; Stop 04/22/17 at 09:03; Status DC Bupivacaine HCl/ Epinephrine Bitart (Sensorcaine-Epi 0.5% 50 ml Inj) 50 ml STK- MED ONCE INFIL ; Start 04/22/17 at 09:25; Stop 04/22/17 at 09:26; Status Cancel Albuterol Sulfate (*ALBUTEROL NEB PERIprocedure ONLY) 2.5 mg STK-MED ONCE NEB Last administered on 04/22/17 10:06; Start 04/22/17 at 10:06; Stop 04/22/17 at 10:07; Status DC Fentanyl Citrate (fentaNYL INJ) 200 mcg STK-MED ONCE .ROUTE ; Start 04/22/17 at 10:10; Stop 04/22/17 at 10:11; Status DC Bupivacaine HCl (Marcaine Pf 0.5% Inj) 30 ml STK-MED ONCE INFIL Last administered on 04/22/17 09:25; Start 04/22/17 at 09:25; Stop 04/22/17 at 10:49 ; Status DC Miscellaneous Information ALL NURSING DEPARTME... UNSCH PRN .XX SEE LABEL COMMENTS; Start 04/22/17 at 10:01; Stop 04/23/17 at 10:00; Status DC Dextrose/Sodium Chloride 1,000 ml @ 60 mls/hr [id number] IV Last administered on 04/24/17 06:40; Start 04/23/17 at 12:45; Stop 04/24/17 at 14:36; Status DC Potassium Chloride/Dextrose/ Sodium Chloride (KCl Inj/D5W-NS 1000 ml Inj) 1,015 ml @ 70 mls/hr [id number] IV Last administered on 04/25/17 05:34; Start at 16:00; Stop 04/25/17 at 13:12; Status DC Promethazine HCl (Phenergan Inj) 25 mg ONCE ONCE IM Last administered on 11:55; Start 04/25/17 at 08:00; Stop 04/25/17 at 08:01; Status DC Nifedipine 60 mg 60 mg DAILY PO Last administered on 04/27/17 10:02; Start at 09:00; Stop 04/27/17 at 14:48; Status DC Potassium Chloride/Dextrose/ Sodium Chloride (KCl Inj/D5W-NS 1000 ml Inj) 1,015 ml @ 60 mls/hr [id number] IV Last administered on 04/27/17 18:18; Start at 15:00; Stop 04/28/17 at 11:49; Status DC Promethazine HCl (Phenergan Inj) 12.5 mg Q8H PRN IM PERSISTENT NAUSEA Last administered on 04/30/17 04:34; Start 04/26/17 at 13:15; Stop 04/30/17 at 11:28 ; Status DC Allopurinol 300 mg 300 mg DAILY PO Last administered on 05/05/17 08:12; Start 04/27/17 at 09:00; Stop 05/05/17 at 12:10; Status DC Vancomycin HCl 1000 mg/Sodium Chloride 250 ml @ 250 mls/hr MARKET INVESTIGATOR IV Last administered on 04/27/17 13:49; Start 04/27/17 at 10:00; Stop 04/30/17 at 09:59 ; Status DC Cefazolin Sodium/ Dextrose (Ancef 2 Gm Premix) 50 ml @ 100 mls/hr MARKET INVESTIGATOR IV Last administered on 04/27/17 15:42; Start 04/27/17 at 10:00; Stop 04/30/17 at 09:59; Status DC Nifedipine (Procardia Xl) 90 mg DAILY PO Last administered on 05/26/17 09:06; Start 04/28/17 at 09:00 Clonidine (Catapres) 0.1 mg Q12HR PO ; Start 04/27/17 at 21:00; Status UNV Clonidine (Catapres) 0.1 mg Q6H PRN PO SBP>160, DBP>90 Last administered on 08:07; Start 04/27/17 at 15:00 Heparin Sodium (Porcine) (*HEPARIN CENTRAL FLUSH PERIprocedural ONLY) 500 units STK-MED ONCE IV FLUSH Last administered on 04/27/17 14:51; Start 04/27/17 at 14:51; Stop 04/27/17 at 14:52; Status DC Lidocaine/ Epinephrine (Xylocaine-Epi 1%-1:100,000 Inj) 20 ml STK-MED ONCE .ROUTE Last administered on 04/27/17 14:51; Start 04/27/17 at 14:51; Stop at 14:52; Status DC Midazolam HCl (Versed Inj) 5 mg STK-MED ONCE .ROUTE Last administered on 14:52; Start 04/27/17 at 14:52; Stop 04/27/17 at 14:53; Status DC Fentanyl Citrate 250 mcg 250 mcg STK-MED ONCE .ROUTE Last administered on 14:53; Start 04/27/17 at 14:53; Stop 04/27/17 at 14:54; Status DC Sodium Chloride (NS 1000 ml Inj) 1,000 ml @ 100 mls/hr Q10H IV Last administered on 04/29/17 17:55; Start 04/29/17 at 15:00; Stop 04/30/17 at 00:59 ; Status DC Acetaminophen (Tylenol) 650 mg ONCE ONCE PO Last administered on 04/30/17 16: 44; Start 04/30/17 at 13:00; Stop 04/30/17 at 13:01; Status DC Diphenhydramine HCl 50 mg 50 mg ONCE ONCE PO Last administered on 04/30/17 16 :43; Start 04/30/17 at 13:00; Stop 04/30/17 at 13:01; Status DC Rituximab/Sodium Chloride (Rituxan Inj/NS 500 ml Inj) 571.625 ml @ 0 mls/hr ONCE ONCE IV Last administered on 05/01/17 13:15; Start 04/30/17 at 14:00; Stop 04/30/17 at 14:01; Status DC Prednisone 115 mg 115 mg Q12H PO ; Start 04/30/17 at 13:00; Stop 05/01/17 at 11: 21; Status DC Dexamethasone Sodium Phosphate 20 mg/Granisetron HCl 1 mg/Sodium Chloride 56 ml @ 224 mls/hr Q24H IV ; Start 04/30/17 at 15:00; Stop 05/01/17 at 11:26; Status DC Potassium Chloride 100 ml @ 50 mls/hr BOLUS ONCE IV Last administered on 04/30 10:20; Start 04/30/17 at 10:00; Stop 04/30/17 at 11:59; Status DC Etoposide 95.5 mg/ Doxorubicin HCl 19.1 mg/ Vincristine Sulfate 0.764 mg/ Sodium Chloride 515.089 ml @ 21.462 mls/hr Q24H IV ; Start 04/30/17 at 15:00; Stop 05/18/17 at 13:46; Status DC Cyclophosphamide/ Sodium Chloride (Cytoxan Inj/NS 500 ml Inj) 500 ml @ 500 mls/ hr ONCE ONCE IV ; Start 05/04/17 at 14:00; Stop 05/04/17 at 14:59; Status DC Ondansetron HCl (Zofran Inj) 4 mg Q6HR PRN IV PUSH NAUSEA OR VOMITING Last administered on 05/07/17 10:06; Start 04/30/17 at 11:30 Promethazine HCl (Phenergan Inj) 25 mg Q6H PRN IM NAUSEA OR VOMITING Last administered on 05/01/17 13:27; Start 04/30/17 at 11:30 Acetaminophen/ Hydrocodone Bitart ([place] 5-325 Mg) 1 tab Q6H PRN PO PAIN SCALE 1 TO 10 Last administered on 05/12/17 02:48; Start 04/30/17 at 11:30 Albuterol/ Ipratropium (Duoneb Neb) 1 ampule ONCE ONCE NEB Last administered on 04/30/17 20:16; Start 04/30/17 at 19:45; Stop 04/30/17 at 20:11; Status DC Albuterol/ Ipratropium (Duoneb Neb) 1 ampule Q2HR NEB PRN NEB sob, wheeze; Start 04/30/17 at 20:45; Stop 05/02/17 at 10:14; Status DC Morphine Sulfate (Morphine Inj) 2 mg ONCE ONCE IV PUSH Last administered on 23:36; Start 04/30/17 at 23:30; Stop 04/30/17 at 23:31; Status DC Furosemide (Lasix Inj) 10 mg ONCE ONCE IV PUSH Last administered on 05/01/17 01:01; Start 05/01/17 at 00:00; Stop 05/01/17 at 00:01; Status DC Furosemide (Lasix Inj) 20 mg ONCE ONCE IV PUSH Last administered on 05/01/17 09:09; Start 05/01/17 at 07:45; Stop 05/01/17 at 07:52; Status DC Acetaminophen (Tylenol) 650 mg NOW ONCE PO Last administered on 05/01/17 10: 51; Start 05/01/17 at 10:45; Stop 05/01/17 at 10:46; Status DC Diphenhydramine HCl 50 mg 50 mg NOW ONCE PO Last administered on 05/01/17 10: 51; Start 05/01/17 at 10:45; Stop 05/01/17 at 10:46; Status DC Rituximab/Sodium Chloride (Rituxan Inj/NS 500 ml Inj) 571.625 ml @ 0 mls/hr ONCE ONCE IV ; Start 05/01/17 at 12:00; Stop 05/01/17 at 12:01; Status DC Acetaminophen (Tylenol) 650 mg ONCE ONCE PO ; Start 05/01/17 at 11:30; Stop at 11:31; Status DC Diphenhydramine HCl (Benadryl) 50 mg ONCE ONCE PO ; Start 05/01/17 at 11:30; Stop 05/01/17 at 11:31; Status DC Prednisone 115 mg 115 mg Q12HR PO Last administered on 05/02/17 20:08; Start 05/01/17 at 11:00; Stop 05/05/17 at 21:01; Status DC Dexamethasone Sodium Phosphate/ Granisetron HCl/ Sodium Chloride (Decadron Inj/ Kytril Inj/NS Inj) 56 ml @ 224 mls/hr Q24H IV ; Start 05/01/17 at 11:30; Stop 05/06/17 at 11:44; Status DC Metoclopramide HCl (Reglan Inj) 10 mg Q8HR IV PUSH Last administered on 04:59; Start 05/01/17 at 15:30; Stop 05/09/17 at 19:03; Status DC Pantoprazole Sodium (Protonix) 40 mg DAILY PO Last administered on 05/06/17 08 :17; Start 05/01/17 at 16:00; Stop 05/07/17 at 11:49; Status DC Furosemide (Lasix Inj) 20 mg ONCE ONCE IV PUSH Last administered on 05/01/17 16:14; Start 05/01/17 at 15:30; Stop 05/01/17 at 15:31; Status DC Albuterol/ Ipratropium (Duoneb Neb) 1 ampule BID NEB INH Last administered on 05/02/17 07:47; Start 05/01/17 at 20:00; Stop 05/02/17 at 10:18; Status DC Furosemide (Lasix Inj) 20 mg STAT ONCE IV PUSH Last administered on 05/02/17 08:40; Start 05/02/17 at 08:30; Stop 05/02/17 at 08:37; Status DC Etomidate (Amidate Inj) 20 mg STK-MED ONCE .ROUTE Last administered on 12:48; Start 05/02/17 at 09:23; Stop 05/02/17 at 09:24; Status DC Dextrose (D50w (Vial) Inj) 25 ml UNSCH PRN IV PUSH HYPOGLYCEMIA-SEE COMMENTS; Start 05/02/17 at 10:00; Stop 05/16/17 at 08:09; Status DC Insulin Human Regular (NovoLIN R SUPPLEMENTAL SCALE) 1 Q6HR SQ Last administered on 05/04/17 18:00; Start 05/02/17 at 12:00; Stop 05/16/17 at 08:09 ; Status DC Chlorhexidine Gluconate (Peridex 0.12% Liq) 15 ml BID@08,20 MT Last administered on 05/20/17 20:00; Start 05/02/17 at 20:00 Magnesium Oxide 800 mg 800 mg UNSCH PRN PO For Magnesium 1.2 - 1.6 mg/dL; Start 05/02/17 at 10:00; Stop 05/03/17 at 13:51; Status DC Magnesium Sulfate 4 gm/Sodium Chloride 100 ml @ 50 mls/hr UNSCH PRN IV For Magnesium 0.9 - 1.1 mg/dL; Start 05/02/17 at 10:00; Stop 05/03/17 at 13:51; Status DC Magnesium Sulfate 2 gm/Sodium Chloride 100 ml @ 50 mls/hr UNSCH PRN IV For Magnesium 1.2 - 1.6 mg/dL; Start 05/02/17 at 10:00; Stop 05/03/17 at 13:51; Status DC Potassium Chloride 100 ml @ 50 mls/hr Q2H PRN IV For Potassium 2.8 - 3.2 mEq/L ; Start 05/02/17 at 10:00; Stop 05/03/17 at 13:51; Status DC Potassium Chloride 100 ml @ 50 mls/hr Q2H PRN IV For Potassium 3.3 - 3.5 mEq/L ; Start 05/02/17 at 10:00; Stop 05/03/17 at 13:51; Status DC Potassium Chloride 100 ml @ 50 mls/hr Q2H PRN IV For Potassium 2.8 - 3.2 mEq/L ; Start 05/02/17 at 10:00; Stop 05/03/17 at 13:51; Status DC Potassium Chloride (KCl 40 Meq Premix Inj) 100 ml @ 25 mls/hr UNSCH PRN IV For Potassium 3.3 - 3.5 mEq/L; Start 05/02/17 at 10:00; Stop 05/03/17 at 13:51; Status DC Potassium Phosphate (K-Phos) 2,000 mg Q4H PRN PO For Phosphorus < 2.5 mg/dL; Start 05/02/17 at 10:00; Stop 05/03/17 at 13:51; Status DC Potassium Phosphate 2000 mg 2,000 mg UNSCH PRN PO/TUBE SEE LABEL COMMENTS; Start 05/02/17 at 10:00; Stop 05/03/17 at 13:51; Status DC Potassium Phosphate 30 mmol/ Sodium Chloride 260 ml @ 42 mls/hr UNSCH PRN IV SEE LABEL COMMENTS; Start 05/02/17 at 10:00; Stop 05/03/17 at 13:52; Status DC Sodium Phosphate/ Sodium Chloride (Sodium Phosphate Inj/NS 250 ml Inj) 250 ml @ 42 mls/hr UNSCH PRN IV For Phosphorus < 2.5 mg/dL; Start 05/02/17 at 10:00; Stop 05/03/17 at 13:52; Status DC Albuterol/ Ipratropium (Duoneb Neb) 1 ampule Q6HR NEB INH Last administered on 05/06/17 03:23; Start 05/02/17 at 10:00; Stop 05/06/17 at 10:00; Status DC Albuterol/ Ipratropium 1 ampule 1 ampule Q2HR NEB PRN INH WHEEZING Last administered on 05/08/17 08:08; Start 05/02/17 at 10:00 Fentanyl Citrate 250 ml @ 0 mls/hr TITRATE IV Last administered on 05/10/17 05 :36; Start 05/02/17 at 10:00 Propofol (Diprivan 1000 Mg/100ml Inj) 100 ml @ 0 mls/hr TITRATE IV Last administered on 05/10/17 06:54; Start 05/02/17 at 10:00 Iohexol 75 ml 75 ml STK-MED ONCE IV Last administered on 05/02/17 11:31; Start 05/02/17 at 11:31; Stop 05/02/17 at 11:32; Status DC Cefepime HCl 2000 mg/Sodium Chloride 100 ml @ 200 mls/hr Q12H IV Last administered on 05/05/17 02:43; Start 05/02/17 at 15:00; Stop 05/05/17 at 11:53 ; Status DC Vancomycin HCl/ Sodium Chloride (Vancomycin Inj/ NS 250 ml Inj) 250 ml @ 250 mls/hr ONCE ONCE IV Last administered on 05/02/17 16:14; Start 05/02/17 at 15 :00; Stop 05/02/17 at 15:59; Status DC Heparin Sodium (Porcine) (Heparin Inj) 5,000 units ONCE ONCE IV Last administered on 05/02/17 15:35; Start 05/02/17 at 16:00; Stop 05/02/17 at 16:01 ; Status DC Miscellaneous Information Patient in critical care unit? Ass... [id number] .XX Last administered on 05/02/17 17:30; Start 05/02/17 at 17:15 Chlorhexidine Gluconate (Chlorhexidine 2% Cloth) 3 pack DAILY@04 TOPICAL Last administered on 05/07/17 03:45; Start 05/03/17 at 04:00; Stop 05/07/17 at 04:01 ; Status DC Chlorhexidine Gluconate 3 pack 3 pack UNSCH PRN TOPICAL HYGIENIC CARE; Start at 17:15; Stop 05/07/17 at 17:08; Status DC Alteplase, Recombinant/ Syringe / Bag (Activase Drip/ Syringe/Bag) 49.9999 ml @ 50 mls/hr ONCE ONCE IV Last administered on 05/02/17 19:58; Start 05/02/17 at 19:15; Stop 05/02/17 at 20:14; Status DC Sodium Chloride (NS Inj) 30 ml ONCE ONCE IVF Last administered on 05/02/17 19 :15; Start 05/02/17 at 19:15; Stop 05/02/17 at 19:28; Status DC Miscellaneous Medication Thrombolysis plan for submass... ONCE ONCE OTHER Last administered on 05/02/17 19:15; Start 05/02/17 at 19:15; Stop 05/02/17 at 19:28; Status DC Heparin Sodium/ Dextrose 250 ml @ 0 mls/hr TITRATE IV Last administered on 05/26 06:57; Start 05/03/17 at 02:00; Stop 05/27/17 at 07:44; Status DC Epinephrine HCl/ Dextrose (Adrenalin (1:1000) Inj/D5W Inj) 250 ml @ 30 mls/hr TITRATE IV Last administered on 05/04/17 09:43; Start 05/03/17 at 10:15; Stop 05/07/17 at 16:44; Status DC Calcium Acetate 2668 mg 2,668 mg TID PO Last administered on 05/26/17 17:09; Start 05/03/17 at 09:00 Epoprostenol Sodium/Sodium Chloride (Flolan (30,000 Ng/ml) Neb/NS Inj) 100 ml @ 8 mls/hr Q8H NEB Last administered on 05/04/17 00:17; Start 05/03/17 at 09:00 ; Stop 05/04/17 at 14:14; Status DC Lidocaine HCl 50 ml 50 ml STK-MED ONCE .ROUTE ; Start 05/03/17 at 12:21; Stop at 12:22; Status DC Epoprostenol Sodium 40 ml/ Sodium Chloride 100 ml @ 8 mls/hr Q8H NEB Last administered on 05/06/17 06:04; Start 05/04/17 at 15:00; Stop 05/06/17 at 12:43 ; Status DC Calcium Gluconate 2 gm/Dextrose 120 ml @ 120 mls/hr ONCE ONCE IV Last administered on 05/04/17 20:00; Start 05/04/17 at 20:00; Stop 05/04/17 at 20:59 ; Status DC Cefepime HCl/ Sodium Chloride (Maxipime Inj/NS Inj) 100 ml @ 200 mls/hr Q24H IV Last administered on 05/08/17 01:36; Start 05/06/17 at 03:00; Stop at 23:00; Status DC Allopurinol (Zyloprim) 200 mg DAILY PO Last administered on 05/26/17 09:07; Start 05/06/17 at 09:00 Artificial Tears (Tears Naturale Opth Soln) 1 drop Q8H EACH EYE Last administered on 05/07/17 10:06; Start 05/05/17 at 18:00; Stop 05/07/17 at 12:11 ; Status DC Fentanyl Citrate (fentaNYL INJ) 100 mcg STK-MED ONCE IV ; Start 04/22/17 at 12: 00; Stop 05/06/17 at 12:46; Status DC Propofol (Diprivan 200 Mg/20 ml Inj) 200 mg STK-MED ONCE IV ; Start 04/22/17 at 12:00; Stop 05/06/17 at 12:46; Status DC Phenylephrine HCl (Neosynephrine/ NS 1000 Mcg/10ml Syr) 1,000 mcg STK-MED ONCE IV ; Start 04/22/17 at 12:00; Stop 05/06/17 at 12:47; Status DC Ondansetron HCl (Zofran Inj) 4 mg STK-MED ONCE IV PUSH ; Start 04/22/17 at 12:00 ; Stop 05/06/17 at 12:47; Status DC Pantoprazole Sodium (Protonix Inj) 40 mg DAILY IV PUSH Last administered on 09:09; Start 05/07/17 at 12:00 Artificial Tears 1 applic 1 applic Q8H EACH EYE Last administered on 05/19/17 10:00; Start 05/07/17 at 18:00 Sodium Chloride (NS 1000 ml Inj) 1,000 ml @ 0 mls/hr TITRATE PRN IV WITH DIALYSIS Last administered on 05/22/17 12:08; Start 05/07/17 at 18:00 Heparin Sodium (Porcine) 8000 units 8,000 units UNSCH PRN IV FLUSH WITH DIALYSIS; Start 05/07/17 at 18:00 Sodium Chloride 1,000 ml @ 200 mls/hr Q5H PRN IV WITH DIALYSIS Last administered on 05/25/17 10:29; Start 05/07/17 at 18:00 Sodium Chloride (NS 250 ml Inj) 200 ml @ 0 mls/hr UNSCH PRN IV WITH DIALYSIS; Start 05/07/17 at 18:00 Mannitol (Mannitol Inj) 12.5 gm UNSCH PRN IV WITH DIALYSIS; Start 05/07/17 at 18:00 Albumin Human (Albumin 25% Inj) 25 gm UNSCH PRN IV WITH DIALYSIS; Start at 18:00 Sodium Chloride (NS Flush) 5 ml UNSCH PRN IV FLUSH WITH DIALYSIS Last administered on 05/25/17 03:50; Start 05/07/17 at 18:00 Heparin Sodium (Porcine) (Heparin Inj) Dwell Heparin to f... UNSCH PRN OTHER WITH DIALYSIS Last administered on 05/25/17 10:31; Start 05/07/17 at 18:00 Gentamicin Sulfate (Gentamicin (Dialysis) Inj) 10 mg UNSCH PRN OTHER WITH DIALYSIS Last administered on 05/25/17 10:29; Start 05/07/17 at 18:00 Gelatin (Gelfoam 12 Mm/7 Mm Top) 1 foam UNSCH PRN TOPICAL WITH DIALYSIS; Start 05/07/17 at 18:00 Ondansetron HCl (Zofran Inj) 4 mg UNSCH PRN IV NAUSEA OR VOMITING; Start at 18:00 Acetaminophen (Tylenol) 650 mg UNSCH X1 PRN PO WITH DIALYSIS Last administered on 05/08/17 10:07; Start 05/07/17 at 18:00; Stop 05/14/17 at 17:59; Status DC Diphenhydramine HCl (Benadryl) 25 mg UNSCH PRN PO WITH DIALYSIS; Start at 18:00 Nitroglycerin (Nitrostat Sl) 0.4 mg UNSCH PRN SL WITH DIALYSIS; Start 05/07/17 at 18:00 Clonidine (Catapres) 0.1 mg UNSCH PRN PO WITH DIALYSIS; Start 05/07/17 at 18:00 Polyethylene Glycol (Miralax) 17 gm DAILY PO Last administered on 05/10/17 07: 52; Start 05/08/17 at 09:00; Stop 05/13/17 at 17:16; Status DC Lactulose (Lactulose Liq) 30 ml BID PO Last administered on 05/10/17 07:51; Start 05/08/17 at 09:00; Stop 05/13/17 at 17:16; Status DC Bisacodyl (Dulcolax Supp) 10 mg DAILY PRN RECTAL CONSTIPATION; Start 05/08/17 at 08:15; Stop 05/08/17 at 08:16; Status DC Diatrizoate Meglum/ Diatrizoate Sod ( Gastroview Liq) 18 ml ONCE ONCE PO Last administered on 05/09/17 16:42; Start 05/09/17 at 14:15; Stop 05/09/17 at 14:16; Status DC Heparin Sodium (Porcine) 300 units 300 units NOW ONCE IV ; Start 05/09/17 at 18 :30; Stop 05/09/17 at 18:31; Status DC Potassium Chloride (KCl 20 Meq Premix Inj) 100 ml @ 50 mls/hr BOLUS ONCE IV Last administered on 05/10/17 13:31; Start 05/10/17 at 12:30; Stop 05/10/17 at 14:29; Status DC Sucralfate 1 gm 1 gm Q8HR PO Last administered on 05/13/17 04:46; Start at 14:00; Stop 05/13/17 at 13:59; Status DC Potassium Chloride (KCl 20 Meq Premix Inj) 100 ml @ 50 mls/hr ONCE ONCE IV Last administered on 05/11/17 08:54; Start 05/11/17 at 08:30; Stop 05/11/17 at 10:29; Status DC Metronidazole (Flagyl) 500 mg Q8HR PO Last administered on 05/25/17 05:32; Start 05/11/17 at 14:00; Stop 05/25/17 at 12:07; Status DC Morphine Sulfate 4 mg 4 mg NOW ONCE IV PUSH Last administered on 05/12/17 09: 58; Start 05/12/17 at 09:45; Stop 05/12/17 at 09:46; Status DC Potassium Chloride (KCl 40 Meq Premix Inj) 100 ml @ 25 mls/hr ONCE ONCE IV Last administered on 05/12/17 13:51; Start 05/12/17 at 13:45; Stop 05/12/17 at 17: 44; Status DC Vancomycin HCl (VANCOMYCIN for oral use only) 500 mg QID PO Last administered on 05/25/17 21:09; Start 05/13/17 at 13:00; Stop 05/25/17 at 23:00; Status DC Dronabinol (Marinol) 5 mg BID@11,16 PO Last administered on 05/26/17 17:09; Start 05/14/17 at 16:00 Heparin Sodium (Porcine) (*HEPARIN INJ Periprocedural ONLY) 10,000 units STK- MED ONCE .ROUTE Last administered on 05/15/17 15:50; Start 05/15/17 at 15:24; Stop 05/15/17 at 15:25; Status DC Sodium Chloride (NS Flush) UNSCH PRN IVF SEE PROTOCOL Last administered on 03:51; Start 05/15/17 at 16:00 Heparin Sodium (Porcine) (Heparin Inj) UNSCH PRN IV FLUSH SEE PROTOCOL; Start 05/15/17 at 16:00 Iohexol (Omnipaque 350 Inj) 10 ml STK-MED ONCE IV Last administered on 15:50; Start 05/15/17 at 20:42; Stop 05/15/17 at 20:43; Status DC Potassium Chloride (KCl) 30 meq ONCE ONCE PO Last administered on 05/16/17 11: 06; Start 05/16/17 at 09:00; Stop 05/16/17 at 09:01; Status DC Dexamethasone (Decadron) 40 mg ONCE ONCE PO ; Start 05/16/17 at 13:00; Stop 05/16 at 13:01; Status DC Potassium Chloride (KCl) 30 meq ONCE ONCE PO Last administered on 05/17/17 08: 57; Start 05/17/17 at 07:45; Stop 05/17/17 at 07:46; Status DC Potassium Chloride (KCl) 20 meq ONCE ONCE PO Last administered on 05/17/17 15: 00; Start 05/17/17 at 13:00; Stop 05/17/17 at 13:01; Status DC Granisetron HCl 1 mg 1 mg ONCE ONCE IV PUSH Last administered on 05/18/17 17: 02; Start 05/18/17 at 16:30; Stop 05/18/17 at 16:31; Status DC Dexamethasone Sodium Phosphate/ Sodium Chloride (Decadron Inj/NS Inj) 55 ml @ 220 mls/hr ONCE ONCE IV Last administered on 05/18/17 17:02; Start 05/18/17 at 16:30; Stop 05/18/17 at 16:44; Status DC Doxorubicin HCl 91 mg 91 mg ONCE ONCE IV PUSH Last administered on 05/18/17 17 :35; Start 05/18/17 at 17:00; Stop 05/18/17 at 17:01; Status DC Vincristine Sulfate 2 mg/ Sodium Chloride 52 ml @ 312 mls/hr ONCE ONCE IV Last administered on 05/18/17 17:50; Start 05/18/17 at 17:30; Stop 05/18/17 at 17: 39; Status DC Cyclophosphamide/ Sodium Chloride (Cytoxan Inj/NS 500 ml Inj) 500 ml @ 500 mls/ hr ONCE ONCE IV Last administered on 05/18/17 18:08; Start 05/18/17 at 18:00; Stop 05/18/17 at 18:59; Status DC Prednisone 91 mg 91 mg HS PO Last administered on 05/22/17 19:54; Start at 21:00; Stop 05/22/17 at 21:01; Status DC Sodium Chloride (NS 250 ml Inj) 250 ml @ 0 mls/hr ONCE ONCE IV Last administered on 05/18/17 17:00; Start 05/18/17 at 17:00; Stop 05/18/17 at 17:01; Status DC Warfarin Sodium (Coumadin) 1 mg DAILY@16 PO Last administered on 05/20/17 17:37 ; Start 05/19/17 at 16:00; Stop 05/21/17 at 12:42; Status DC Patient Medication Teaching (Coumadin Booklet) 1 ONCE ONCE OTHER Last administered on 05/19/17 16:00; Start 05/19/17 at 16:00; Stop 05/19/17 at 16:01; Status DC Warfarin Sodium 1 mg 1 mg NOW ONCE PO Last administered on 05/19/17 19:40; Start 05/19/17 at 19:45; Stop 05/19/17 at 19:46; Status DC Sodium Chloride (NS 250 ml Inj) 250 ml @ 15 mls/hr ONCE ONCE IV Last administered on 05/22/17 18:36; Start 05/20/17 at 10:00; Stop 05/21/17 at 02:39 ; Status DC Albuterol Sulfate (Ventolin Hfa Inh) 2 puff Q6HR INH ; Start 05/21/17 at 00:00 Warfarin Sodium (Coumadin) 2 mg DAILY@16 PO Last administered on 05/21/17 17: 27; Start 05/21/17 at 16:00; Stop 05/22/17 at 14:13; Status DC Epoetin Oleksandr (Epogen Inj) 10,000 units UNSCH PRN IV WITH DIALYSIS Last administered on 05/25/17 10:30; Start 05/21/17 at 18:30 Warfarin Sodium (Coumadin) 3 mg DAILY@16 PO Last administered on 05/22/17 18: 35; Start 05/22/17 at 16:00; Stop 05/23/17 at 12:26; Status DC Warfarin Sodium (Coumadin) 4 mg DAILY@16 PO Last administered on 05/26/17 15: 08; Start 05/23/17 at 16:00 Sodium Chloride (NS Flush) 5 ml UNSCH PRN IV FLUSH SEE PROTOCOL TABLE Last administered on 05/25/17 03:51; Start 05/24/17 at 06:45 Heparin Sodium (Porcine) (Heparin Central Flush) 250 units UNSCH PRN IV FLUSH SEE PROTOCOL TABLE; Start 05/24/17 at 06:45 Heparin Sodium (Porcine) 500 units 500 units UNSCH IV FLUSH ; Start 05/24/17 at 06:45 Sodium Chloride (NS 250 ml Inj) 250 ml @ 15 mls/hr ONCE ONCE IV ; Start at 10:00; Stop 05/26/17 at 02:39; Status DC Potassium Chloride (KCl) 20 meq ONCE ONCE PO Last administered on 05/25/17 12 :08; Start 05/25/17 at 11:00; Stop 05/25/17 at 11:10; Status DC Potassium Chloride 40 meq 40 meq ONCE ONCE PO Last administered on 05/26/17 09:06; Start 05/26/17 at 08:30; Stop 05/26/17 at 08:31; Status DC Filgrastim/ Dextrose (Neupogen Inj/ D5W Inj) 25 ml @ 100 mls/hr DAILY@14 IV Last administered on 05/26/17 15:08; Start 05/26/17 at 15:00 A/P Assessment and Plan A/P Acute Hypoxic Respiratory Failure-resolved --stable on RA Acute Submassive Pulmonary Embolism Right Heart Dysfunction Global severe left ventricular systolic dysfunction Cardiogenic Shock-resolved -- 2d echo 05/02: EF 30-35%, RV dysfunction with dilation --Repeat ECHO limited study scheduled on 05/09-RV function appears to have normalized, question of interatrial shunt for which cardiology consulted-d/w Dr. Taveras, recommended that once off anticoagulation, would need to be on ASA and require f/u echo periodically for evaluation. Acute Kidney Injury-resolved. Hypokalemia- -- likely secondary to cardiogenic shock -off HD- -vas-cath was removed- -nephrology has signed off. -replace electrolytes as needed. Hyperphosphatemia-resolved. protein calorie malnutrition- severe ileus -vocational nurse following; initial recommendations noted- PEG was discussed with the patient which he declined- he states that his appetite is better now- calorie count repeated; awaiting vocational nurse follow-up. --evaluated by General surgery and GI . -Expanded bowel regimen MiraLAX, lactulose. Large Cell B-cell lymphoma leukopenia Pulmonary Embolism anemia of chronic disease C. difficile colitis -- hematology/oncology following Dr. Connelly-received chemo CHOP regimen initiated. -- started on neupogen -transfused with PRBC- H/H has improved- will monitor. -heparin was discontinued- continue Coumadin- PT/INR monitoring. --finished the course of Vanco and Flagyl- continue PT. Prophylaxis: DVT: coumadin Discharge Planning when INR is therapeutic and cleared by Nephrology/oncology. Catalina Eller MD May 27, 2017 08:16
[2017-05-27 08:36] LABS: PLATELET ESTIMATE SMEAR LOW (NORMAL); PLATELET MORPHOLOGY NORMAL (NORMAL); SCAN/DIFF AUTO DIFF CONFIRMED
[2017-05-27] MEDS: DRONABINOL 5 MG CAP PO SCH ×2 (12:23→16:17)
[2017-05-27] MEDS: FILGRASTIM INJ 300 MCG in DEXTROSE 5% IN WATER INJ 24 ML IV SCH ×2 (12:29)
[2017-05-27] MEDS ORDERED: POTASSIUM CHLORIDE 20 MEQ CONTROLLED RELEASE TAB PO ONE (13:00)
[2017-05-27] MEDS ORDERED: MAGNESIUM SULFATE 1 GM PREMIX 100 ML IV ONE (13:30)
[2017-05-27] MEDS: WARFARIN SOD 4 MG TAB PO SCH (16:17)
--- NOTE | 2017-05-27 16:24 | PD.WCN.NOT ---
Wound Consult Description: Scar tissue to R medial buttock that is opening to partial thickness skin loss that is moisture related Communicated with: SUMMER [place] Recommendation: Please cleanse buttock are gently with soap and water. Apply thick layer of calazime barrier cream BID and PRN Additional Information: Patient seen on for evaluation of sacral wound management. Patient turned to L side with minimal assist from remote mortgage underwriter. Chrissy WHEELER 7 east at bedside for assistance.Removed adhesive foam dressing in place Patient is noted with loose stool. Cleansed patient with soap and water to reveal scar tissue to bilateral upper buttock area that has a small area of partial thickness skin loss to R upper buttock, Wound measures ~2cm x~0.4cm x<~0.1.Wound appears to be moisture related.Cleansed wound with normal saline. Applied thick layer of calazime barrier cream.Patient positioned to L side supported on pillow. Jessica Shi [facility] May 27, 2017 16:24
[2017-05-28] VITALS (10 sets, daily range): BP systolic 115–141; BP diastolic 83–92; PULSE 62–86; RESP 15–18; TEMP 96.8–98.4; O2SAT 96–100
[2017-05-28] MEDS: ARTIFICIAL TEARS OPTH OINT 3.5 APPLIC/3.5 GM TUBO EACH EYE SCH ×3 (01:46→17:24)
[2017-05-28] MEDS: ALBUTEROL SULFATE 90 MCG/ACT HFA 18 GM INHALER INH SCH ×5 (05:14→23:45)
[2017-05-28 05:32] LABS: AUTOMATED NEUTROPHIL # 1.4 TH/MM3 (1.8-7.7); BASOPHIL % 2.3 % (0.0-2.0); EOSINOPHIL % 0.9 % (0.0-4.0); HEMATOCRIT 31.4 % (39.0-51.0); LYMPH % 17.2 % (9.0-44.0); LYMPHOCYTE # 0.3 TH/MM3 (1.0-4.8); MEAN CELL VOLUME 88.9 FL (80.0-100.0); MEAN CORPUSCULAR HEMOGLOBIN 29.9 PG (27.0-34.0); MEAN CORPUSCULAR HGB CONC 33.6 % (32.0-36.0); MONO % 5.7 % (0.0-8.0); NEUT % 73.9 % (16.0-70.0); PLATELET COUNT 115 TH/MM3 (150-450); RED BLOOD COUNT 3.54 MIL/MM3 (4.50-5.90); RED CELL DISTRIBUTION WIDTH 16.2 % (11.6-17.2)
[2017-05-28 05:35] LABS: HEMO FLAGS AUTO DIFF
[2017-05-28 05:54] LABS: POTASSIUM 3.5 MEQ/L (3.5-5.1)
[2017-05-28 05:56] LABS: MAGNESIUM 1.3 MG/DL (1.5-2.5)
[2017-05-28 07:29] LABS: BANDS 32 % (0-6); BASOPHILS 1 % (0-2); NEUTROPHIL # MANUAL DIFF 1.5 TH/MM3 (1.8-7.7); POLYS (SEG NEUTROPHILS) 44 % (16-70); WBC DIFF SAMPLE 100
[2017-05-28 07:30] LABS: PLATELET ESTIMATE SMEAR LOW (NORMAL); PLATELET MORPHOLOGY NORMAL (NORMAL); SCAN/DIFF FINAL DIFF MANUAL
[2017-05-28] MEDS: CHLORHEXIDINE 0.12% (ORAL KIT) 15 ML CUP MT SCH ×2 (08:00→20:00)
--- NOTE | 2017-05-28 08:12 | HHI.PR ---
Subjective Remarks resting comfortably with no distress. denies pain. no new complaints. Objective Vitals Vital Signs Date Time Temp Pulse Resp B/P Pulse Ox O2 Delivery O2 Flow Rate FiO2 05/28/17 04:00 98.4 62 16 141/92 98 05/28/17 00:00 98.1 84 15 122/86 100 05/27/17 22:00 84 05/27/17 20:00 97.6 73 16 130/86 98 05/27/17 16:00 98.4 70 18 120/82 96 05/27/17 12:00 98.0 77 18 118/79 95 I/O 05/27/17 05/27/17 05/27/17 05/28/17 05/28/17 05/28/17 07:00 15:00 23:00 07:00 15:00 23:00 Intake Total 200 ml 600 ml 0 ml 0 ml Output Total 300 ml 400 ml 0 ml 200 ml Balance -100 ml 200 ml 0 ml -200 ml Intake Oral 200 ml 600 ml 0 ml 0 ml Output Urine Total 300 ml 400 ml 0 ml 200 ml # Voids 1 # Bowel Movements 0 2 Result Diagram: 05/28/17 0505 05/28/17 0505 Imaging Last Impressions Chest X-Ray 05/21/17599 Signed Impressions: Service Date/Time: May 06:05 - CONCLUSION: Bibasilar opacities the majority represent effusion appreciated without posterior left lower lobe retrocardiac density consolidation atelectasis versus infiltrate there was underlying in the right medial base suggesting air fluid level the possibility of cavitary lesion with air-fluid level cannot be excluded. There is persistent mediastinal mass widening. Stanford Mcdonough MD Abdomen X-Ray 05/15/17 06 Draft Impressions: Service Date/Time: Monday, May 15, 2017 04:29 - CONCLUSION: Findings of mild small bowel ileus. There has been no significant change when compared to the prior exam. Jadon Carroll MD Central Venous Line 05/15/17 0000 Signed Impressions: Service Date/Time: Monday, May 15, 2017 00:00 - CONCLUSION: Uncomplicated catheter removal. Bryon Calero Jr., MD Catheter Placement X-Ray 05/15/17 0000 Signed Impressions: Service Date/Time: Monday, May 15, 2017 15:13 - CONCLUSION: Mild narrowing involving the brachiocephalic vein near its junction with the SVC. This is not flow limiting. A left-sided vas catheter was placed. Bryon Calero Jr., MD Abdomen/Pelvis CT 05/09/17 0000 Signed Impressions: Service Date/Time: Tuesday, May 09, 2017 21:16 - CONCLUSION: 1. Diffusely distended loops of small bowel down to the cecum suggest ileus. 2. Evidence of mesenteric and retroperitoneal adenopathy. 3. Large bilateral pleural effusions , moderate amount of free fluid in the pelvis and mild ascites in the upper abdomen. 4. Abnormal appearance to the parenchyma of the right kidney with patchy areas of hyperdensity in a mosaic pattern. This of uncertain significance. The patient had iodinated contrast for a CT pulmonary angiogram 7 days ago; this could potentially represent residual parenchymal contrast which would be nonspecific, but raises the possibility of either obstruction or renal infarctions. Bryon Evans MD Renal Ultrasound 05/05/17 0000 Signed Impressions: Service Date/Time: Friday, May 05, 2017 20:06 - CONCLUSION: 1. Kidneys are borderline echogenic which can be seen with medical renal disease. 2. No evidence of hydronephrosis. 3. Abdominal ascites. 4. Multiple dilated bowel loops. 5. Bilateral pleural effusions. Tray Patel MD Head CT 05/03/17 0000 Signed Impressions: Service Date/Time: Wednesday, May 03, 2017 17:22 - CONCLUSION: No acute intracranial disease. No hemorrhage seen. Tray Patel MD CT Angiography 05/02/17 0000 Signed Impressions: Service Date/Time: Tuesday, May 02, 2017 11:10 - CONCLUSION: 1. There is pulmonary embolus in the right pulmonary artery, right upper lobe and lower lobe branches. 2. Resorption of previously seen gas in the left axilla with fluid collection at this site with postprocedural change and possibly postprocedural hemorrhage not significantly changed in size. 3. Interval development of right lung airspace process may represent postobstructive pneumonia and there is mucus within the trachea not present yesterday. 4. Right pleural effusion is smaller and left pleural effusion is larger. 5. No change in bulky adenopathy. Leonor Chavez MD Upper Extremity Ultrasound 04/30/17 0000 Signed Impressions: Service Date/Time: April 12:25 - CONCLUSION: There some superficial thrombosis of a vein in the forearm. The deep venous system is patent. Large fluid collection left axilla. Significant soft tissue edema throughout the upper arm. Rinku Hillman MD Thoracentesis Ultrasound 04/30/17 0000 Signed Impressions: Service Date/Time: April 12:14 - CONCLUSION: Uncomplicated ultrasound guided thoracentesis. Tray Patel MD Port Line Insertion 04/27/17 0000 Signed Impressions: Service Date/Time: Thursday, April 27, 2017 14:56 - CONCLUSION: 1. Bulky bilateral lower cervical lymphadenopathy. 2. Uncomplicated ultrasound and fluoroscopic guided implanted central venous port catheter placement as described in detail above. An 8 [employer] port was placed. Liang Peralta MD Bone Biopsy CT 04/27/17 0000 Signed Impressions: Service Date/Time: Thursday, April 27, 2017 16:22 - CONCLUSION: 1. Uncomplicated CT guided bone marrow aspirate. 2. Uncomplicated CT guided bone marrow biopsy. Tray Patel MD Chest CT 04/25/17 0000 Signed Impressions: Service Date/Time: Wednesday, April 26, 2017 19:00 - CONCLUSION: The right pleural effusion is slightly larger on the left side has not changed. Extensive bulky adenopathy as before and malignancies such as lymphoma is suspected. Leonor Chavez MD Gall Bladder Ultrasound 04/22/17 0000 Signed Impressions: Service Date/Time: Saturday, April 22, 2017 07:35 - CONCLUSION: Small liver with focal abdomen only incompletely evaluated. Large right pleural effusion. effusion. Kirk Briceño MD FACR Abdomen CT 04/20/17 0000 Signed Impressions: Service Date/Time: Thursday, April 20, 2017 19:40 - CONCLUSION: Limited exam because of lack of intravenous contrast. Lymphoma is suspected. Pathological diagnosis could be obtained with ultrasound biopsy of the cervical, axillary or inguinal adenopathy. Kirk Briceño MD FACR Objective Remarks GENERAL: in no acute distress CARDIOVASCULAR: Regular rate and regular rhythm without murmurs, gallops, or rubs. RESPIRATORY: Clear to auscultation. Breath sounds equal bilaterally. No wheezes , rales, or rhonchi. GASTROINTESTINAL: Abdomen soft, non-tender, nondistended. Normal, active bowel sounds MUSCULOSKELETAL: Extremities without clubbing, cyanosis, or edema. NEURO: awake and alert Procedures 04/[address] excision biopsy 04/27- port placement 05/02-TPA 05/06-left IJ Vas-Cath placement endotracheal intubation Medications and IVs Current Medications Ondansetron HCl 4 mg 4 mg ONCE ONCE IVP Last administered on 04/18/17 17:38; Start 04/18/17 at 17:30; Stop 04/18/17 at 17:31; Status DC Sodium Chloride (NS 1000 ml Inj) 1,000 ml @ 1,000 mls/hr Q1H IV Last administered on 04/18/17 17:38; Start 04/18/17 at 17:16; Stop 04/18/17 at 18:15; Status DC Sodium Chloride 2 ml 2 ml UNSCH PRN IV FLUSH FLUSH AFTER USING IV ACCESS Last administered on 05/24/17 21:18; Start 04/18/17 at 17:30 Sodium Chloride 1,000 ml @ 1,000 mls/hr Q1H IV Last administered on 04/18/17 18:40; Start 04/18/17 at 18:37; Stop 04/18/17 at 19:36; Status DC Potassium Chloride (KCl 20 Meq Premix Inj) 100 ml @ 50 mls/hr Q2H IV Last administered on 04/18/17 22:12; Start 04/18/17 at 19:00; Stop 04/18/17 at 22:59; Status DC Ondansetron HCl (Zofran Inj) 4 mg Q6H PRN IVP NAUSEA OR VOMITING Last administered on 04/26/17 06:04; Start 04/18/17 at 19:30; Stop 04/26/17 at 13:02 ; Status DC Morphine Sulfate (Morphine Inj) 2 mg Q3H PRN IV Pain 3-5; if unable to take PO ; Start 04/18/17 at 19:30; Status Cancel Morphine Sulfate (Morphine Inj) 4 mg Q3H PRN IV Pain 6-10;if unable to take PO ; Start 04/18/17 at 19:30; Status Cancel Naloxone HCl (Narcan Inj) 0.4 mg UNSCH PRN IV SEE LABEL COMMENTS; Start at 19:30 Senna/Docusate Sodium (Porsha-Colace) 1 tab BID PO Last administered on 07:52; Start 04/18/17 at 21:00; Stop 05/13/17 at 17:16; Status DC Magnesium Hydroxide (Milk Of Magnesia Liq) 30 ml Q12H PRN PO MILD - MODERATE CONSTIPATION Last administered on 05/09/17 08:01; Start 04/18/17 at 19:30; Stop 05/13/17 at 17:16; Status DC Sennosides (Senokot) 17.2 mg Q12H PRN PO MODERATE - SEVERE CONSTIPATION; Start 04/18/17 at 19:30; Stop 05/13/17 at 17:16; Status DC Bisacodyl (Dulcolax Supp) 10 mg DAILY PRN RECTAL SEVERE CONSITIPATION; Start at 19:30; Stop 05/13/17 at 17:16; Status DC Lactulose 30 ml 30 ml DAILY PRN PO SEVERE CONSITIPATION; Start 04/18/17 at 19:30 ; Stop 05/13/17 at 17:16; Status DC Potassium Chloride/Sodium Chloride 1,000 ml @ 125 mls/hr Q8H IV ; Start at 21:00; Stop 04/18/17 at 21:00; Status DC Potassium Chloride/Sodium Chloride 1,000 ml @ 83 mls/hr Q12H3M IV Last administered on 04/23/17 01:19; Start 04/19/17 at 02:00; Stop 04/23/17 at 09:04 ; Status DC Sodium Chloride (NS 1000 ml Inj) 1,000 ml @ 125 mls/hr Q8H IV Last administered on 04/18/17 20:00; Start 04/18/17 at 20:00; Stop 04/19/17 at 16:01; Status DC Pneumococcal Polyvalent Vaccine 25 mcg 25 mcg ONCE ONCE IM Last administered on 04/19/17 11:20; Start 04/19/17 at 09:00; Stop 04/19/17 at 09:01; Status DC Ceftriaxone Sodium/Sodium Chloride (Rocephin Inj/NS Inj) 100 ml @ 200 mls/hr Q24H IV Last administered on 04/24/17 12:51; Start 04/19/17 at 13:00; Stop at 14:33; Status DC Heparin Sodium (Porcine) (Heparin Inj) 5,000 units Q8HR SQ Last administered on 05/02/17 12:46; Start 04/19/17 at 14:00; Stop 05/19/17 at 10:23; Status DC Azithromycin (Zithromax) 500 mg Q24H PO Last administered on 04/24/17 12:51; Start 04/19/17 at 13:00; Stop 04/24/17 at 14:33; Status DC Clonidine (Catapres) 0.1 mg ONCE ONCE PO Last administered on 04/20/17 22:16 ; Start 04/20/17 at 21:45; Stop 04/20/17 at 21:46; Status DC Nifedipine (Procardia Xl) 30 mg DAILY PO Last administered on 04/25/17 09:42; Start 04/21/17 at 17:00; Stop 04/25/17 at 13:12; Status DC Hydralazine HCl 10 mg 10 mg Q6HR PRN IV PUSH SBP>160, DBP>90 Last administered on 04/27/17 10:15; Start 04/21/17 at 17:00 Cefazolin Sodium/ Sodium Chloride (Ancef Inj/NS Inj) 100 ml @ 200 mls/hr [employer]ER IV ; Start 04/21/17 at 21:30; Stop 04/24/17 at 21:29; Status DC Midazolam HCl (Versed Inj) 2 mg STK-MED ONCE .ROUTE Last administered on 09:02; Start 04/22/17 at 09:02; Stop 04/22/17 at 09:03; Status DC Bupivacaine HCl/ Epinephrine Bitart (Sensorcaine-Epi 0.5% 50 ml Inj) 50 ml STK- MED ONCE INFIL ; Start 04/22/17 at 09:25; Stop 04/22/17 at 09:26; Status Cancel Albuterol Sulfate (*ALBUTEROL NEB PERIprocedure ONLY) 2.5 mg STK-MED ONCE NEB Last administered on 04/22/17 10:06; Start 04/22/17 at 10:06; Stop 04/22/17 at 10:07; Status DC Fentanyl Citrate (fentaNYL INJ) 200 mcg STK-MED ONCE .ROUTE ; Start 04/22/17 at 10:10; Stop 04/22/17 at 10:11; Status DC Bupivacaine HCl (Marcaine Pf 0.5% Inj) 30 ml STK-MED ONCE INFIL Last administered on 04/22/17 09:25; Start 04/22/17 at 09:25; Stop 04/22/17 at 10:49 ; Status DC Miscellaneous Information ALL NURSING DEPARTME... UNSCH PRN .XX SEE LABEL COMMENTS; Start 04/22/17 at 10:01; Stop 04/23/17 at 10:00; Status DC Dextrose/Sodium Chloride 1,000 ml @ 60 mls/hr [id number] IV Last administered on 04/24/17 06:40; Start 04/23/17 at 12:45; Stop 04/24/17 at 14:36; Status DC Potassium Chloride/Dextrose/ Sodium Chloride (KCl Inj/D5W-NS 1000 ml Inj) 1,015 ml @ 70 mls/hr [id number] IV Last administered on 04/25/17 05:34; Start at 16:00; Stop 04/25/17 at 13:12; Status DC Promethazine HCl (Phenergan Inj) 25 mg ONCE ONCE IM Last administered on 11:55; Start 04/25/17 at 08:00; Stop 04/25/17 at 08:01; Status DC Nifedipine 60 mg 60 mg DAILY PO Last administered on 04/27/17 10:02; Start at 09:00; Stop 04/27/17 at 14:48; Status DC Potassium Chloride/Dextrose/ Sodium Chloride (KCl Inj/D5W-NS 1000 ml Inj) 1,015 ml @ 60 mls/hr [id number] IV Last administered on 04/27/17 18:18; Start at 15:00; Stop 04/28/17 at 11:49; Status DC Promethazine HCl (Phenergan Inj) 12.5 mg Q8H PRN IM PERSISTENT NAUSEA Last administered on 04/30/17 04:34; Start 04/26/17 at 13:15; Stop 04/30/17 at 11:28 ; Status DC Allopurinol 300 mg 300 mg DAILY PO Last administered on 05/05/17 08:12; Start 04/27/17 at 09:00; Stop 05/05/17 at 12:10; Status DC Vancomycin HCl 1000 mg/Sodium Chloride 250 ml @ 250 mls/hr [employer] IV Last administered on 04/27/17 13:49; Start 04/27/17 at 10:00; Stop 04/30/17 at 09:59 ; Status DC Cefazolin Sodium/ Dextrose (Ancef 2 Gm Premix) 50 ml @ 100 mls/hr [employer] IV Last administered on 04/27/17 15:42; Start 04/27/17 at 10:00; Stop 04/30/17 at 09:59; Status DC Nifedipine (Procardia Xl) 90 mg DAILY PO Last administered on 05/27/17 08:10; Start 04/28/17 at 09:00 Clonidine (Catapres) 0.1 mg Q12HR PO ; Start 04/27/17 at 21:00; Status UNV Clonidine (Catapres) 0.1 mg Q6H PRN PO SBP>160, DBP>90 Last administered on 08:07; Start 04/27/17 at 15:00 Heparin Sodium (Porcine) (*HEPARIN CENTRAL FLUSH PERIprocedural ONLY) 500 units STK-MED ONCE IV FLUSH Last administered on 04/27/17 14:51; Start 04/27/17 at 14:51; Stop 04/27/17 at 14:52; Status DC Lidocaine/ Epinephrine (Xylocaine-Epi 1%-1:100,000 Inj) 20 ml STK-MED ONCE .ROUTE Last administered on 04/27/17 14:51; Start 04/27/17 at 14:51; Stop at 14:52; Status DC Midazolam HCl (Versed Inj) 5 mg STK-MED ONCE .ROUTE Last administered on 14:52; Start 04/27/17 at 14:52; Stop 04/27/17 at 14:53; Status DC Fentanyl Citrate 250 mcg 250 mcg STK-MED ONCE .ROUTE Last administered on 14:53; Start 04/27/17 at 14:53; Stop 04/27/17 at 14:54; Status DC Sodium Chloride (NS 1000 ml Inj) 1,000 ml @ 100 mls/hr Q10H IV Last administered on 04/29/17 17:55; Start 04/29/17 at 15:00; Stop 04/30/17 at 00:59 ; Status DC Acetaminophen (Tylenol) 650 mg ONCE ONCE PO Last administered on 04/30/17 16: 44; Start 04/30/17 at 13:00; Stop 04/30/17 at 13:01; Status DC Diphenhydramine HCl 50 mg 50 mg ONCE ONCE PO Last administered on 04/30/17 16 :43; Start 04/30/17 at 13:00; Stop 04/30/17 at 13:01; Status DC Rituximab/Sodium Chloride (Rituxan Inj/NS 500 ml Inj) 571.625 ml @ 0 mls/hr ONCE ONCE IV Last administered on 05/01/17 13:15; Start 04/30/17 at 14:00; Stop 04/30/17 at 14:01; Status DC Prednisone 115 mg 115 mg Q12H PO ; Start 04/30/17 at 13:00; Stop 05/01/17 at 11: 21; Status DC Dexamethasone Sodium Phosphate 20 mg/Granisetron HCl 1 mg/Sodium Chloride 56 ml @ 224 mls/hr Q24H IV ; Start 04/30/17 at 15:00; Stop 05/01/17 at 11:26; Status DC Potassium Chloride 100 ml @ 50 mls/hr BOLUS ONCE IV Last administered on 04/30 10:20; Start 04/30/17 at 10:00; Stop 04/30/17 at 11:59; Status DC Etoposide 95.5 mg/ Doxorubicin HCl 19.1 mg/ Vincristine Sulfate 0.764 mg/ Sodium Chloride 515.089 ml @ 21.462 mls/hr Q24H IV ; Start 04/30/17 at 15:00; Stop 05/18/17 at 13:46; Status DC Cyclophosphamide/ Sodium Chloride (Cytoxan Inj/NS 500 ml Inj) 500 ml @ 500 mls/ hr ONCE ONCE IV ; Start 05/04/17 at 14:00; Stop 05/04/17 at 14:59; Status DC Ondansetron HCl (Zofran Inj) 4 mg Q6HR PRN IV PUSH NAUSEA OR VOMITING Last administered on 05/07/17 10:06; Start 04/30/17 at 11:30 Promethazine HCl (Phenergan Inj) 25 mg Q6H PRN IM NAUSEA OR VOMITING Last administered on 05/01/17 13:27; Start 04/30/17 at 11:30 Acetaminophen/ Hydrocodone Bitart (Vashon 5-325 Mg) 1 tab Q6H PRN PO PAIN SCALE 1 TO 10 Last administered on 05/12/17 02:48; Start 04/30/17 at 11:30 Albuterol/ Ipratropium (Duoneb Neb) 1 ampule ONCE ONCE NEB Last administered on 04/30/17 20:16; Start 04/30/17 at 19:45; Stop 04/30/17 at 20:11; Status DC Albuterol/ Ipratropium (Duoneb Neb) 1 ampule Q2HR NEB PRN NEB sob, wheeze; Start 04/30/17 at 20:45; Stop 05/02/17 at 10:14; Status DC Morphine Sulfate (Morphine Inj) 2 mg ONCE ONCE IV PUSH Last administered on 23:36; Start 04/30/17 at 23:30; Stop 04/30/17 at 23:31; Status DC Furosemide (Lasix Inj) 10 mg ONCE ONCE IV PUSH Last administered on 05/01/17 01:01; Start 05/01/17 at 00:00; Stop 05/01/17 at 00:01; Status DC Furosemide (Lasix Inj) 20 mg ONCE ONCE IV PUSH Last administered on 05/01/17 09:09; Start 05/01/17 at 07:45; Stop 05/01/17 at 07:52; Status DC Acetaminophen (Tylenol) 650 mg NOW ONCE PO Last administered on 05/01/17 10: 51; Start 05/01/17 at 10:45; Stop 05/01/17 at 10:46; Status DC Diphenhydramine HCl 50 mg 50 mg NOW ONCE PO Last administered on 05/01/17 10: 51; Start 05/01/17 at 10:45; Stop 05/01/17 at 10:46; Status DC Rituximab/Sodium Chloride (Rituxan Inj/NS 500 ml Inj) 571.625 ml @ 0 mls/hr ONCE ONCE IV ; Start 05/01/17 at 12:00; Stop 05/01/17 at 12:01; Status DC Acetaminophen (Tylenol) 650 mg ONCE ONCE PO ; Start 05/01/17 at 11:30; Stop at 11:31; Status DC Diphenhydramine HCl (Benadryl) 50 mg ONCE ONCE PO ; Start 05/01/17 at 11:30; Stop 05/01/17 at 11:31; Status DC Prednisone 115 mg 115 mg Q12HR PO Last administered on 05/02/17 20:08; Start 05/01/17 at 11:00; Stop 05/05/17 at 21:01; Status DC Dexamethasone Sodium Phosphate/ Granisetron HCl/ Sodium Chloride (Decadron Inj/ Kytril Inj/NS Inj) 56 ml @ 224 mls/hr Q24H IV ; Start 05/01/17 at 11:30; Stop 05/06/17 at 11:44; Status DC Metoclopramide HCl (Reglan Inj) 10 mg Q8HR IV PUSH Last administered on 04:59; Start 05/01/17 at 15:30; Stop 05/09/17 at 19:03; Status DC Pantoprazole Sodium (Protonix) 40 mg DAILY PO Last administered on 05/06/17 08 :17; Start 05/01/17 at 16:00; Stop 05/07/17 at 11:49; Status DC Furosemide (Lasix Inj) 20 mg ONCE ONCE IV PUSH Last administered on 05/01/17 16:14; Start 05/01/17 at 15:30; Stop 05/01/17 at 15:31; Status DC Albuterol/ Ipratropium (Duoneb Neb) 1 ampule BID NEB INH Last administered on 05/02/17 07:47; Start 05/01/17 at 20:00; Stop 05/02/17 at 10:18; Status DC Furosemide (Lasix Inj) 20 mg STAT ONCE IV PUSH Last administered on 05/02/17 08:40; Start 05/02/17 at 08:30; Stop 05/02/17 at 08:37; Status DC Etomidate (Amidate Inj) 20 mg STK-MED ONCE .ROUTE Last administered on 12:48; Start 05/02/17 at 09:23; Stop 05/02/17 at 09:24; Status DC Dextrose (D50w (Vial) Inj) 25 ml UNSCH PRN IV PUSH HYPOGLYCEMIA-SEE COMMENTS; Start 05/02/17 at 10:00; Stop 05/16/17 at 08:09; Status DC Insulin Human Regular (NovoLIN R SUPPLEMENTAL SCALE) 1 Q6HR SQ Last administered on 05/04/17t 18:00; Start 05/02/17 at 12:00; Stop 05/16/17 at 08:09 ; Status DC Chlorhexidine Gluconate (Peridex 0.12% Liq) 15 ml BID@08,20 MT Last administered on 05/27/17t 20:00; Start 05/02/17 at 20:00 Magnesium Oxide 800 mg 800 mg UNSCH PRN PO For Magnesium 1.2 - 1.6 mg/dL; Start 05/02/17 at 10:00; Stop 05/03/17 at 13:51; Status DC Magnesium Sulfate 4 gm/Sodium Chloride 100 ml @ 50 mls/hr UNSCH PRN IV For Magnesium 0.9 - 1.1 mg/dL; Start 05/02/17 at 10:00; Stop 05/03/17 at 13:51; Status DC Magnesium Sulfate 2 gm/Sodium Chloride 100 ml @ 50 mls/hr UNSCH PRN IV For Magnesium 1.2 - 1.6 mg/dL; Start 05/02/17 at 10:00; Stop 05/03/17 at 13:51; Status DC Potassium Chloride 100 ml @ 50 mls/hr Q2H PRN IV For Potassium 2.8 - 3.2 mEq/L ; Start 05/02/17 at 10:00; Stop 05/03/17 at 13:51; Status DC Potassium Chloride 100 ml @ 50 mls/hr Q2H PRN IV For Potassium 3.3 - 3.5 mEq/L ; Start 05/02/17 at 10:00; Stop 05/03/17 at 13:51; Status DC Potassium Chloride 100 ml @ 50 mls/hr Q2H PRN IV For Potassium 2.8 - 3.2 mEq/L ; Start 05/02/17 at 10:00; Stop 05/03/17 at 13:51; Status DC Potassium Chloride (KCl 40 Meq Premix Inj) 100 ml @ 25 mls/hr UNSCH PRN IV For Potassium 3.3 - 3.5 mEq/L; Start 05/02/17 at 10:00; Stop 05/03/17 at 13:51; Status DC Potassium Phosphate (K-Phos) 2,000 mg Q4H PRN PO For Phosphorus < 2.5 mg/dL; Start 05/02/17 at 10:00; Stop 05/03/17 at 13:51; Status DC Potassium Phosphate 2000 mg 2,000 mg UNSCH PRN PO/TUBE SEE LABEL COMMENTS; Start 05/02/17 at 10:00; Stop 05/03/17 at 13:51; Status DC Potassium Phosphate 30 mmol/ Sodium Chloride 260 ml @ 42 mls/hr UNSCH PRN IV SEE LABEL COMMENTS; Start 05/02/17 at 10:00; Stop 05/03/17 at 13:52; Status DC Sodium Phosphate/ Sodium Chloride (Sodium Phosphate Inj/NS 250 ml Inj) 250 ml @ 42 mls/hr UNSCH PRN IV For Phosphorus < 2.5 mg/dL; Start 05/02/17 at 10:00; Stop 05/03/17 at 13:52; Status DC Albuterol/ Ipratropium (Duoneb Neb) 1 ampule Q6HR NEB INH Last administered on 05/06/17 03:23; Start 05/02/17 at 10:00; Stop 05/06/17 at 10:00; Status DC Albuterol/ Ipratropium 1 ampule 1 ampule Q2HR NEB PRN INH WHEEZING Last administered on 05/08/17 08:08; Start 05/02/17 at 10:00 Fentanyl Citrate 250 ml @ 0 mls/hr TITRATE IV Last administered on 05/10/17 05 :36; Start 05/02/17 at 10:00 Propofol (Diprivan 1000 Mg/100ml Inj) 100 ml @ 0 mls/hr TITRATE IV Last administered on 05/10/17 06:54; Start 05/02/17 at 10:00 Iohexol 75 ml 75 ml STK-MED ONCE IV Last administered on 05/02/17 11:31; Start 05/02/17 at 11:31; Stop 05/02/17 at 11:32; Status DC Cefepime HCl 2000 mg/Sodium Chloride 100 ml @ 200 mls/hr Q12H IV Last administered on 05/05/17 02:43; Start 05/02/17 at 15:00; Stop 05/05/17 at 11:53 ; Status DC Vancomycin HCl/ Sodium Chloride (Vancomycin Inj/ NS 250 ml Inj) 250 ml @ 250 mls/hr ONCE ONCE IV Last administered on 05/02/17 16:14; Start 05/02/17 at 15 :00; Stop 05/02/17 at 15:59; Status DC Heparin Sodium (Porcine) (Heparin Inj) 5,000 units ONCE ONCE IV Last administered on 05/02/17 15:35; Start 05/02/17 at 16:00; Stop 05/02/17 at 16:01 ; Status DC Miscellaneous Information Patient in critical care unit? Ass... [id number] .XX Last administered on 05/02/17 17:30; Start 05/02/17 at 17:15 Chlorhexidine Gluconate (Chlorhexidine 2% Cloth) 3 pack DAILY@04 TOPICAL Last administered on 05/07/17 03:45; Start 05/03/17 at 04:00; Stop 05/07/17 at 04:01 ; Status DC Chlorhexidine Gluconate 3 pack 3 pack UNSCH PRN TOPICAL HYGIENIC CARE; Start at 17:15; Stop 05/07/17 at 17:08; Status DC Alteplase, Recombinant/ Syringe / Bag (Activase Drip/ Syringe/Bag) 49.9999 ml @ 50 mls/hr ONCE ONCE IV Last administered on 05/02/17 19:58; Start 05/02/17 at 19:15; Stop 05/02/17 at 20:14; Status DC Sodium Chloride (NS Inj) 30 ml ONCE ONCE IVF Last administered on 05/02/17 19 :15; Start 05/02/17 at 19:15; Stop 05/02/17 at 19:28; Status DC Miscellaneous Medication Thrombolysis plan for submass... ONCE ONCE OTHER Last administered on 05/02/17 19:15; Start 05/02/17 at 19:15; Stop 05/02/17 at 19:28; Status DC Heparin Sodium/ Dextrose 250 ml @ 0 mls/hr TITRATE IV Last administered on 05/26 06:57; Start 05/03/17 at 02:00; Stop 05/27/17 at 07:44; Status DC Epinephrine HCl/ Dextrose (Adrenalin (1:1000) Inj/D5W Inj) 250 ml @ 30 mls/hr TITRATE IV Last administered on 05/04/17 09:43; Start 05/03/17 at 10:15; Stop 05/07/17 at 16:44; Status DC Calcium Acetate 2668 mg 2,668 mg TID PO Last administered on 05/27/17 12:23; Start 05/03/17 at 09:00; Stop 05/27/17 at 12:34; Status DC Epoprostenol Sodium/Sodium Chloride (Flolan (30,000 Ng/ml) Neb/NS Inj) 100 ml @ 8 mls/hr Q8H NEB Last administered on 05/04/17 00:17; Start 05/03/17 at 09:00 ; Stop 05/04/17 at 14:14; Status DC Lidocaine HCl 50 ml 50 ml STK-MED ONCE .ROUTE ; Start 05/03/17 at 12:21; Stop at 12:22; Status DC Epoprostenol Sodium 40 ml/ Sodium Chloride 100 ml @ 8 mls/hr Q8H NEB Last administered on 05/06/17 06:04; Start 05/04/17 at 15:00; Stop 05/06/17 at 12:43 ; Status DC Calcium Gluconate 2 gm/Dextrose 120 ml @ 120 mls/hr ONCE ONCE IV Last administered on 05/04/17 20:00; Start 05/04/17 at 20:00; Stop 05/04/17 at 20:59 ; Status DC Cefepime HCl/ Sodium Chloride (Maxipime Inj/NS Inj) 100 ml @ 200 mls/hr Q24H IV Last administered on 05/08/17 01:36; Start 05/06/17 at 03:00; Stop at 23:00; Status DC Allopurinol (Zyloprim) 200 mg DAILY PO Last administered on 05/27/17 08:09; Start 05/06/17 at 09:00; Stop 05/27/17 at 14:46; Status DC Artificial Tears (Tears Naturale Opth Soln) 1 drop Q8H EACH EYE Last administered on 05/07/17 10:06; Start 05/05/17 at 18:00; Stop 05/07/17 at 12:11 ; Status DC Fentanyl Citrate (fentaNYL INJ) 100 mcg STK-MED ONCE IV ; Start 04/22/17 at 12: 00; Stop 05/06/17 at 12:46; Status DC Propofol (Diprivan 200 Mg/20 ml Inj) 200 mg STK-MED ONCE IV ; Start 04/22/17 at 12:00; Stop 05/06/17 at 12:46; Status DC Phenylephrine HCl (Neosynephrine/ NS 1000 Mcg/10ml Syr) 1,000 mcg STK-MED ONCE IV ; Start 04/22/17 at 12:00; Stop 05/06/17 at 12:47; Status DC Ondansetron HCl (Zofran Inj) 4 mg STK-MED ONCE IV PUSH ; Start 04/22/17 at 12:00 ; Stop 05/06/17 at 12:47; Status DC Pantoprazole Sodium (Protonix Inj) 40 mg DAILY IV PUSH Last administered on 08:10; Start 05/07/17 at 12:00 Artificial Tears 1 applic 1 applic Q8H EACH EYE Last administered on 05/27/17 18:20; Start 05/07/17 at 18:00 Sodium Chloride (NS 1000 ml Inj) 1,000 ml @ 0 mls/hr TITRATE PRN IV WITH DIALYSIS Last administered on 05/22/17 12:08; Start 05/07/17 at 18:00 Heparin Sodium (Porcine) 8000 units 8,000 units UNSCH PRN IV FLUSH WITH DIALYSIS; Start 05/07/17 at 18:00 Sodium Chloride 1,000 ml @ 200 mls/hr Q5H PRN IV WITH DIALYSIS Last administered on 05/25/17 10:29; Start 05/07/17 at 18:00 Sodium Chloride (NS 250 ml Inj) 200 ml @ 0 mls/hr UNSCH PRN IV WITH DIALYSIS; Start 05/07/17 at 18:00 Mannitol (Mannitol Inj) 12.5 gm UNSCH PRN IV WITH DIALYSIS; Start 05/07/17 at 18:00 Albumin Human (Albumin 25% Inj) 25 gm UNSCH PRN IV WITH DIALYSIS; Start at 18:00 Sodium Chloride (NS Flush) 5 ml UNSCH PRN IV FLUSH WITH DIALYSIS Last administered on 05/25/17 03:50; Start 05/07/17 at 18:00 Heparin Sodium (Porcine) (Heparin Inj) Dwell Heparin to f... UNSCH PRN OTHER WITH DIALYSIS Last administered on 05/25/17 10:31; Start 05/07/17 at 18:00 Gentamicin Sulfate (Gentamicin (Dialysis) Inj) 10 mg UNSCH PRN OTHER WITH DIALYSIS Last administered on 05/25/17 10:29; Start 05/07/17 at 18:00 Gelatin (Gelfoam 12 Mm/7 Mm Top) 1 foam UNSCH PRN TOPICAL WITH DIALYSIS; Start 05/07/17 at 18:00 Ondansetron HCl (Zofran Inj) 4 mg UNSCH PRN IV NAUSEA OR VOMITING; Start at 18:00 Acetaminophen (Tylenol) 650 mg UNSCH X1 PRN PO WITH DIALYSIS Last administered on 05/08/17 10:07; Start 05/07/17 at 18:00; Stop 05/14/17 at 17:59; Status DC Diphenhydramine HCl (Benadryl) 25 mg UNSCH PRN PO WITH DIALYSIS; Start at 18:00 Nitroglycerin (Nitrostat Sl) 0.4 mg UNSCH PRN SL WITH DIALYSIS; Start 05/07/17 at 18:00 Clonidine (Catapres) 0.1 mg UNSCH PRN PO WITH DIALYSIS; Start 05/07/17 at 18:00 Polyethylene Glycol (Miralax) 17 gm DAILY PO Last administered on 05/10/17 07: 52; Start 05/08/17 at 09:00; Stop 05/13/17 at 17:16; Status DC Lactulose (Lactulose Liq) 30 ml BID PO Last administered on 05/10/17 07:51; Start 05/08/17 at 09:00; Stop 05/13/17 at 17:16; Status DC Bisacodyl (Dulcolax Supp) 10 mg DAILY PRN RECTAL CONSTIPATION; Start 05/08/17 at 08:15; Stop 05/08/17 at 08:16; Status DC Diatrizoate Meglum/ Diatrizoate Sod ( Gastroview Liq) 18 ml ONCE ONCE PO Last administered on 05/09/17 16:42; Start 05/09/17 at 14:15; Stop 05/09/17 at 14:16; Status DC Heparin Sodium (Porcine) 300 units 300 units NOW ONCE IV ; Start 05/09/17 at 18 :30; Stop 05/09/17 at 18:31; Status DC Potassium Chloride (KCl 20 Meq Premix Inj) 100 ml @ 50 mls/hr BOLUS ONCE IV Last administered on 05/10/17 13:31; Start 05/10/17 at 12:30; Stop 05/10/17 at 14:29; Status DC Sucralfate 1 gm 1 gm Q8HR PO Last administered on 05/13/17 04:46; Start at 14:00; Stop 05/13/17 at 13:59; Status DC Potassium Chloride (KCl 20 Meq Premix Inj) 100 ml @ 50 mls/hr ONCE ONCE IV Last administered on 05/11/17 08:54; Start 05/11/17 at 08:30; Stop 05/11/17 at 10:29; Status DC Metronidazole (Flagyl) 500 mg Q8HR PO Last administered on 05/25/17 05:32; Start 05/11/17 at 14:00; Stop 05/25/17 at 12:07; Status DC Morphine Sulfate 4 mg 4 mg NOW ONCE IV PUSH Last administered on 05/12/17 09: 58; Start 05/12/17 at 09:45; Stop 05/12/17 at 09:46; Status DC Potassium Chloride (KCl 40 Meq Premix Inj) 100 ml @ 25 mls/hr ONCE ONCE IV Last administered on 05/12/17 13:51; Start 05/12/17 at 13:45; Stop 05/12/17 at 17: 44; Status DC Vancomycin HCl (VANCOMYCIN for oral use only) 500 mg QID PO Last administered on 05/25/17 21:09; Start 05/13/17 at 13:00; Stop 05/25/17 at 23:00; Status DC Dronabinol (Marinol) 5 mg BID@11,16 PO Last administered on 05/27/17 16:17; Start 05/14/17 at 16:00 Heparin Sodium (Porcine) (*HEPARIN INJ Periprocedural ONLY) 10,000 units STK- MED ONCE .ROUTE Last administered on 05/15/17 15:50; Start 05/15/17 at 15:24; Stop 05/15/17 at 15:25; Status DC Sodium Chloride (NS Flush) UNSCH PRN IVF SEE PROTOCOL Last administered on 03:51; Start 05/15/17 at 16:00 Heparin Sodium (Porcine) (Heparin Inj) UNSCH PRN IV FLUSH SEE PROTOCOL; Start 05/15/17 at 16:00 Iohexol (Omnipaque 350 Inj) 10 ml STK-MED ONCE IV Last administered on 15:50; Start 05/15/17 at 20:42; Stop 05/15/17 at 20:43; Status DC Potassium Chloride (KCl) 30 meq ONCE ONCE PO Last administered on 05/16/17 11: 06; Start 05/16/17 at 09:00; Stop 05/16/17 at 09:01; Status DC Dexamethasone (Decadron) 40 mg ONCE ONCE PO ; Start 05/16/17 at 13:00; Stop 05/16 at 13:01; Status DC Potassium Chloride (KCl) 30 meq ONCE ONCE PO Last administered on 05/17/17 08: 57; Start 05/17/17 at 07:45; Stop 05/17/17 at 07:46; Status DC Potassium Chloride (KCl) 20 meq ONCE ONCE PO Last administered on 05/17/17 15: 00; Start 05/17/17 at 13:00; Stop 05/17/17 at 13:01; Status DC Granisetron HCl 1 mg 1 mg ONCE ONCE IV PUSH Last administered on 05/18/17 17: 02; Start 05/18/17 at 16:30; Stop 05/18/17 at 16:31; Status DC Dexamethasone Sodium Phosphate/ Sodium Chloride (Decadron Inj/NS Inj) 55 ml @ 220 mls/hr ONCE ONCE IV Last administered on 05/18/17 17:02; Start 05/18/17 at 16:30; Stop 05/18/17 at 16:44; Status DC Doxorubicin HCl 91 mg 91 mg ONCE ONCE IV PUSH Last administered on 05/18/17 17 :35; Start 05/18/17 at 17:00; Stop 05/18/17 at 17:01; Status DC Vincristine Sulfate 2 mg/ Sodium Chloride 52 ml @ 312 mls/hr ONCE ONCE IV Last administered on 05/18/17 17:50; Start 05/18/17 at 17:30; Stop 05/18/17 at 17: 39; Status DC Cyclophosphamide/ Sodium Chloride (Cytoxan Inj/NS 500 ml Inj) 500 ml @ 500 mls/ hr ONCE ONCE IV Last administered on 05/18/17 18:08; Start 05/18/17 at 18:00; Stop 05/18/17 at 18:59; Status DC Prednisone 91 mg 91 mg HS PO Last administered on 05/22/17 19:54; Start at 21:00; Stop 05/22/17 at 21:01; Status DC Sodium Chloride (NS 250 ml Inj) 250 ml @ 0 mls/hr ONCE ONCE IV Last administered on 05/18/17 17:00; Start 05/18/17 at 17:00; Stop 05/18/17 at 17:01; Status DC Warfarin Sodium (Coumadin) 1 mg DAILY@16 PO Last administered on 05/20/17 17:37 ; Start 05/19/17 at 16:00; Stop 05/21/17 at 12:42; Status DC Patient Medication Teaching (Coumadin Booklet) 1 ONCE ONCE OTHER Last administered on 05/19/17 16:00; Start 05/19/17 at 16:00; Stop 05/19/17 at 16:01; Status DC Warfarin Sodium 1 mg 1 mg NOW ONCE PO Last administered on 05/19/17 19:40; Start 05/19/17 at 19:45; Stop 05/19/17 at 19:46; Status DC Sodium Chloride (NS 250 ml Inj) 250 ml @ 15 mls/hr ONCE ONCE IV Last administered on 05/22/17 18:36; Start 05/20/17 at 10:00; Stop 05/21/17 at 02:39 ; Status DC Albuterol Sulfate (Ventolin Hfa Inh) 2 puff Q6HR INH ; Start 05/21/17 at 00:00 Warfarin Sodium (Coumadin) 2 mg DAILY@16 PO Last administered on 05/21/17 17: 27; Start 05/21/17 at 16:00; Stop 05/22/17 at 14:13; Status DC Epoetin Oleksandr (Epogen Inj) 10,000 units UNSCH PRN IV WITH DIALYSIS Last administered on 05/25/17 10:30; Start 05/21/17 at 18:30 Warfarin Sodium (Coumadin) 3 mg DAILY@16 PO Last administered on 05/22/17 18: 35; Start 05/22/17 at 16:00; Stop 05/23/17 at 12:26; Status DC Warfarin Sodium (Coumadin) 4 mg DAILY@16 PO Last administered on 05/27/17 16: 17; Start 05/23/17 at 16:00 Sodium Chloride (NS Flush) 5 ml UNSCH PRN IV FLUSH SEE PROTOCOL TABLE Last administered on 05/25/17 03:51; Start 05/24/17 at 06:45 Heparin Sodium (Porcine) (Heparin Central Flush) 250 units UNSCH PRN IV FLUSH SEE PROTOCOL TABLE; Start 05/24/17 at 06:45 Heparin Sodium (Porcine) 500 units 500 units UNSCH IV FLUSH ; Start 05/24/17 at 06:45 Sodium Chloride (NS 250 ml Inj) 250 ml @ 15 mls/hr ONCE ONCE IV ; Start at 10:00; Stop 05/26/17 at 02:39; Status DC Potassium Chloride (KCl) 20 meq ONCE ONCE PO Last administered on 05/25/17 12 :08; Start 05/25/17 at 11:00; Stop 05/25/17 at 11:10; Status DC Potassium Chloride 40 meq 40 meq ONCE ONCE PO Last administered on 05/26/17 09:06; Start 05/26/17 at 08:30; Stop 05/26/17 at 08:31; Status DC Filgrastim/ Dextrose (Neupogen Inj/ D5W Inj) 25 ml @ 100 mls/hr DAILY@14 IV Last administered on 05/27/17 12:29; Start 05/26/17 at 15:00 Potassium Chloride (KCl) 40 meq ONCE ONCE PO Last administered on 05/27/17 08 :24; Start 05/27/17 at 08:15; Stop 05/27/17 at 08:16; Status DC Potassium Chloride 20 meq 20 meq ONCE ONCE PO Last administered on 05/27/17 12:23; Start 05/27/17 at 13:00; Stop 05/27/17 at 13:01; Status DC Magnesium Sulfate/ Dextrose (Magnesium Sulfate 1 Gm Premix) 100 ml @ 100 mls/ hr ONCE ONCE IV Last administered on 05/27/17t 14:31; Start 05/27/17 at 13:30 ; Stop 05/27/17 at 14:29; Status DC Allopurinol (Zyloprim) 300 mg DAILY PO ; Start 05/28/17 at 09:00 A/P Assessment and Plan A/P Acute Hypoxic Respiratory Failure-resolved --stable on RA Acute Submassive Pulmonary Embolism Right Heart Dysfunction Global severe left ventricular systolic dysfunction Cardiogenic Shock-resolved -- 2d echo 05/02: EF 30-35%, RV dysfunction with dilation --Repeat ECHO limited study scheduled on 05/09-RV function appears to have normalized, question of interatrial shunt for which cardiology consulted-d/w Dr. Taveras, recommended that once off anticoagulation, would need to be on ASA and require f/u echo periodically for evaluation. Acute Kidney Injury-resolved. Hypokalemia-replaced. hypomagnesemia- improved. -- likely secondary to cardiogenic shock -HD was discontinued. -vas-cath was removed- -nephrology has signed off. -replace electrolytes as needed. Hyperphosphatemia-resolved. protein calorie malnutrition- severe ileus-resolved. -structural steel erector following; recommended alternative form of nutrition - PEG was discussed with the patient which he again declined- he states that his appetite is better now- structural steel erector following. --evaluated by General surgery and GI . Large Cell B-cell lymphoma leukopenia Pulmonary Embolism anemia of chronic disease -- hematology/oncology following Dr. Connelly-received chemo CHOP regimen initiated. -plan for EPOCH chemotherapy June 08- as inpatient. - started on neupogen -transfused with PRBC- H/H has improved- will monitor. -heparin was discontinued- continue Coumadin- PT/INR monitoring. C. difficile colitis --finished the course of Vanco and Flagyl- continue PT. Prophylaxis: DVT: coumadin Discharge Planning when cleared by oncology. Catalina Eller MD May 28, 2017 08:12 when INR is therapeutic and cleared by Nephrology/oncology. Catalina Eller MD May 28, 2017 08:12
[2017-05-28] MEDS: PANTOPRAZOLE SODIUM 40 MG VIAL IV PUSH SCH (08:16)
[2017-05-28] MEDS: SODIUM CHLORIDE 0.9% FLUSH 10 ML FLUSH IV FLUSH PRN (08:16)
[2017-05-28] MEDS: ALLOPURINOL 300 MG TAB PO SCH (08:16)
[2017-05-28] MEDS: NIFEdipine 90 MG SUSTAINED RELEASE TAB PO SCH (08:17)
[2017-05-28] MEDS ORDERED: POTASSIUM CHLORIDE 20 MEQ CONTROLLED RELEASE TAB PO ONE (09:00)
--- NOTE | 2017-05-28 09:43 | PD.ONC.PN ---
Subjective Subjective Remarks Afebrile overnight No bleeding on the Coumadin Continuing to work with physical therapy to get stronger Objective Data Date Time Temp Pulse Resp B/P Pulse Ox O2 Delivery O2 Flow Rate FiO2 05/28/17 08:00 96.8 70 16 122/83 98 05/28/17 04:00 98.4 62 16 141/92 98 05/28/17 00:00 98.1 84 15 122/86 100 05/27/17 22:00 84 05/27/17 20:00 97.6 73 16 130/86 98 05/27/17 16:00 98.4 70 18 120/82 96 05/27/17 12:00 98.0 77 18 118/79 95 05/28/17 05/28/17 05/28/17 07:00 15:00 23:00 Intake Total 0 ml Output Total 200 ml 200 ml Balance -200 ml -200 ml Result Diagram: 05/28/17 0505 05/28/17 0505 Laboratory Results Laboratory Tests Test 05/28/17 05:05 White Blood Count 2.0 TH/MM3 Red Blood Count 3.54 MIL/MM3 Hemoglobin 10.6 GM/DL Hematocrit 31.4 % Mean Corpuscular Volume 88.9 FL Mean Corpuscular Hemoglobin 29.9 PG Mean Corpuscular Hemoglobin 33.6 % Concent Red Cell Distribution Width 16.2 % Platelet Count 115 TH/MM3 Mean Platelet Volume 7.4 FL Neutrophils (%) (Auto) 73.9 % Lymphocytes (%) (Auto) 17.2 % Monocytes (%) (Auto) 5.7 % Eosinophils (%) (Auto) 0.9 % Basophils (%) (Auto) 2.3 % Neutrophils # (Auto) 1.4 TH/MM3 Lymphocytes # (Auto) 0.3 TH/MM3 Monocytes # (Auto) 0.1 TH/MM3 Eosinophils # (Auto) 0.0 TH/MM3 Basophils # (Auto) 0.0 TH/MM3 CBC Comment AUTO DIFF Differential Total Cells 100 Counted Neutrophils % (Manual) 44 % Band Neutrophils % 32 % Lymphocytes % 18 % Monocytes % 5 % Basophils % 1 % Neutrophils # (Manual) 1.5 TH/MM3 Differential Comment FINAL DIFF MANUAL Platelet Estimate LOW Platelet Morphology Comment NORMAL Potassium Level 3.5 MEQ/L Magnesium Level 1.3 MG/DL Administered Medications Medications (Trade) Dose Ordered Sig/Shyla Route PRN Reason Start Time Stop Time Status Last Admin Dose Admin Sodium Chloride (NS Flush) 2 ml UNSCH PRN IV FLUSH FLUSH AFTER USING IV ACCESS 04/18/17 17:30 05/28/17 08:16 Hydralazine HCl (Apresoline Inj) 10 mg Q6HR PRN IV PUSH SBP>160, DBP>90 04/21/17 17:00 04/27/17 10:15 Nifedipine (Procardia Xl) 90 mg DAILY PO 04/28/17 09:00 05/28/17 08:17 Clonidine (Catapres) 0.1 mg Q6H PRN PO SBP>160, DBP>90 04/27/17 15:00 04/29/17 08:07 Ondansetron HCl (Zofran Inj) 4 mg Q6HR PRN IV PUSH NAUSEA OR VOMITING 04/30/17 11:30 05/07/17 10:06 Promethazine HCl (Phenergan Inj) 25 mg Q6H PRN IM NAUSEA OR VOMITING 04/30/17 11:30 05/01/17 13:27 Acetaminophen/ Hydrocodone Bitart ([place] 5-325 Mg) 1 tab Q6H PRN PO PAIN SCALE 1 TO 10 04/30/17 11:30 05/12/17 02:48 Chlorhexidine Gluconate 15 ml 15 ml BID@08,20 MT 05/02/17 20:00 05/27/17 20:00 Fentanyl Citrate 250 ml @ 0 mls/hr TITRATE IV 05/02/17 10:00 05/10/17 05:36 Propofol (Diprivan 1000 Mg/100ml Inj) 100 ml @ 0 mls/hr TITRATE IV 05/02/17 10:00 05/10/17 06:54 Miscellaneous Information Patient in critical care unit? Ass... [id number] .XX 05/02/17 17:15 05/02/17 17:30 Pantoprazole Sodium (Protonix Inj) 40 mg DAILY IV PUSH 05/07/17 12:00 05/28/17 08:16 Artificial Tears 1 applic 1 applic Q8H EACH EYE 05/07/17 18:00 05/27/17 18:20 Sodium Chloride 1,000 ml @ 0 mls/hr TITRATE PRN IV WITH DIALYSIS 05/07/17 18:00 05/22/17 12:08 Sodium Chloride (NS 1000 ml Inj) 1,000 ml @ 200 mls/hr Q5H PRN IV WITH DIALYSIS 05/07/17 18:00 05/25/17 10:29 Sodium Chloride (NS Flush) 5 ml UNSCH PRN IV FLUSH WITH DIALYSIS 05/07/17 18:00 05/25/17 03:50 Heparin Sodium (Porcine) (Heparin Inj) Dwell Heparin to f... UNSCH PRN OTHER WITH DIALYSIS 05/07/17 18:00 05/25/17 10:31 Gentamicin Sulfate (Gentamicin (Dialysis) Inj) 10 mg UNSCH PRN OTHER WITH DIALYSIS 05/07/17 18:00 05/25/17 10:29 Dronabinol (Marinol) 5 mg BID@11,16 PO 05/14/17 16:00 05/27/17 16:17 Sodium Chloride (NS Flush) UNSCH PRN IVF SEE PROTOCOL 05/15/17 16:00 05/25/17 03:51 Epoetin Oleksandr (Epogen Inj) 10,000 units UNSCH PRN IV WITH DIALYSIS 05/21/17 18:30 05/25/17 10:30 Warfarin Sodium (Coumadin) 4 mg DAILY@16 PO 05/23/17 16:00 05/27/17 16:17 Sodium Chloride 5 ml 5 ml UNSCH PRN IV FLUSH SEE PROTOCOL TABLE 05/24/17 06:45 05/25/17 03:51 Filgrastim/ Dextrose (Neupogen Inj/ D5W Inj) 25 ml @ 100 mls/hr DAILY@14 IV 05/26/17 15:00 05/27/17 12:29 Allopurinol (Zyloprim) 300 mg DAILY PO 05/28/17 09:00 05/28/17 08:16 Objective Remarks GENERAL: Thin male resting in bed in no distress. SKIN: Warm and dry. Vas-cath, left neck. HEAD: Normocephalic. EYES: No injection or drainage. NECK: Supple, trachea midline. CARDIOVASCULAR: +S1/S2 RESPIRATORY: Breath sounds equal bilaterally. No accessory muscle use. GASTROINTESTINAL: Abdomen soft, non-tender, nondistended. EXTREMITIES: No cyanosis, or edema. NEUROLOGICAL: Awake and alert, normal speech. Assessment/Plan Problem List: (1) Non-Hodgkin lymphoma Status: Acute Plan: --Has aggressive triple hit lymphoma. --Received Rituxan x1. --Neck adenopathy relatively stable. --05/18-->CHOP chemotherapy -- Will likely receive EPOCH chemotherapy on 06/08. (2) Pulmonary emboli Status: Acute Plan: --on heparin gtt-->coumadin --CTA showed large PE --s/p tpa therapy on 05.02. now on heparin gtt. (3) Normocytic anemia Status: Acute Plan: --multifactorial due to chronic disease, renal failure --monitor and transfuse as needed Assessment 47y/o male admitted with pancreatitis, found to have NHL. Plan 1. Continue Coumadin at current dose 2. Continue Neupogen 3. Patient was encouraged to continue with physical therapy 4. Monitor blood counts Attending Statement The exam, history, and the medical decision-making described in the above note were completed with the assistance of the mid-level provider. I reviewed and agree with the findings presented. I attest that I had a [id number] encounter with the patient on the same day, and personally performed and documented my assessment and findings in the medical record. Still weak. + neutropenia but improving. Continue neupogen until resolution of neutropenia. Continue PT. Plan chemotx 06/08. Problem Qualifiers (1) Non-Hodgkin lymphoma: Tia Montenegro May 28, 2017 09:43 Ruslan Connelly MD May 28, 2017 13:49
[2017-05-28] MEDS: MAGNESIUM OXIDE 400 MG TAB PO SCH ×2 (09:54→23:45)
[2017-05-28] MEDS: DRONABINOL 5 MG CAP PO SCH ×2 (11:00→16:00)
--- NOTE | 2017-05-28 11:49 | HHI.HCPN ---
Reason for visit a. To assist with evaluation and management of symptoms including: Debility. b. To assist medical decision maker(s) with: better understanding of current medical conditions; weighing benefits/burdens of medical treatment options; making medical treatment decisions. . Subjective/Interval History Mr. Werner is a 47-year-old male with no significant medical history, recently diagnosed with aggressive CD10 positive B-cell non-Hodgkin lymphoma. 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 Patient medically extubated on 05/10/17. Palliative care was consulted for assistance with goals of care and to determine healthcare surrogate decision maker. Patient medically extubated on 05/10/17, transferred from ICU to [facility]. Patient seen in his room, he was resting in bed in no acute distress. Patient is alert and oriented 3. Denies shortness of breath, nausea and vomiting. Currently on room air, tolerating well. Patient endorses poor appetite, verbalized that he is a "picky eater". Patient is currently being followed by a community reinvestment act officer and was also started on Marinol 05/14/17. Patient reports that his appetite is getting better. There has been recommendations for a PEG tube given his poor appetite/oral intake but patient initially declined. Calorie count completed on 05/27/17, patient not meeting his nutritional requirements through by mouth intake alone. Currently on Ensure TID with meals. Reviewed nutritional intake for the last 2 days, patient eating from 0-25% breakfast and dinner, and 25-50% lunch. Patient is no longer receiving hemodialysis, it was stopped on 05/25/17. Urine output had improved and creatinine was better. Nephrology signed off. On , pt`s HgB dropped to 6.8, 2 units PRBCS transfused. Patient is no longer on heparin treatment he was started on Coumadin and Neupogen. Lengthy discussion with patient regarding goals of care. He is looking forward to discharge home, discussed concerns regarding his nutritional status, weight loss and debility. Discussed benefits of PEG tube if his oral intake is not improved. Patient to reconsider PEG tube placement. Reinforced the importance of nutrition in regards to chemotherapy. There is plan for [facility] [place] [facility]. . Family/friend interactions No family at bedside. . Advance Directives Living Will: Never completed Health Care Surrogate: Copy in medical record Durable Power of Geriatric Nurse: Never completed Advance Directive Specifics Date completed: 04/29/17. . Health Care Surrogate(s): HSC/mother Oxana Seals. Alternate surrogate -sister France Garcia. . Documented care wishes: No living will completed. . Significant change in goals: Goals of care remain unchanged. . Objective Vital Signs Date Time Temp Pulse Resp B/P Pulse Ox O2 Delivery O2 Flow Rate FiO2 05/28/17 08:00 96.8 70 16 122/83 98 05/28/17 04:00 98.4 62 16 141/92 98 05/28/17 00:00 98.1 84 15 122/86 100 05/27/17 22:00 84 05/27/17 20:00 97.6 73 16 130/86 98 05/27/17 16:00 98.4 70 18 120/82 96 05/27/17 12:00 98.0 77 18 118/79 95 Intake & Output 05/28/17 05/28/17 07:00 19:00 Intake Total 0 ml Output Total 200 ml 200 ml Balance -200 ml -200 ml Intake Oral 0 ml Output Urine Total 200 ml 200 ml Physical Exam CONSTITUTIONAL/GENERAL: This is a thin male in no acute distress. TUBES/LINES/DRAINS: Mediport right chest, PIV's. SKIN: No jaundice, rashes, or lesions. Skin dry to upper extremities. No wounds seen anteriorly. Not diaphoretic. HEAD: Atraumatic. Normocephalic. EYES: Pupils equal and round and reactive. No scleral icterus. No injection or drainage. ENT: Hearing grossly normal. Nose without bleeding or purulent drainage. Moist oral mucosa. Poor dentition, dry lips. NECK: Trachea midline. Supple, nontender. CARDIOVASCULAR: Regular rate and rhythm without murmurs, gallops, or rubs. Peripheral pulses symmetric. RESPIRATORY/CHEST: Symmetric, clear breath sounds bilaterally. Patient on RA. GASTROINTESTINAL: Abdomen soft, non-tender, with + bowel sounds. MUSCULOSKELETAL: Extremities without clubbing, cyanosis. No edema. No mottling or clubbing. NEUROLOGICAL: A & O x self, place and situation. Appropriate. PSYCHIATRIC: calm. . Diagnostic Tests Laboratory Laboratory Tests Test 05/25/17 05/26/17 05/26/1705/27/17 14:43 04:30 12:25 06:14 Prothrombin Time 17.4 SEC 24.0 SEC 29.5 SEC (9.8-11.6) (9.8-11.6) (9.8-11.6) Prothromb Time International 1.5 RATIO 2.1 RATIO 2.6 RATIO Ratio Activated Partial 45.3 SEC 48.7 SEC 56.6 SEC Thromboplast Time (24.3-30.1) (24.3-30.1) (24.3-30.1) White Blood Count 1.5 TH/MM3 2.2 TH/MM3 (4.0-11.0) (4.0-11.0) Red Blood Count 3.65 MIL/MM3 3.44 MIL/MM3 (4.50-5.90) (4.50-5.90) Hemoglobin 10.9 GM/DL 10.3 GM/DL (13.0-17.0) (13.0-17.0) Hematocrit 31.5 % 30.0 % (39.0-51.0) (39.0-51.0) Mean Corpuscular Volume 86.3 FL 87.3 FL (80.0-100.0) (80.0-100.0) Mean Corpuscular Hemoglobin 29.8 PG 30.0 PG (27.0-34.0) (27.0-34.0) Mean Corpuscular Hemoglobin 34.6 % 34.4 % Concent (32.0-36.0) (32.0-36.0) Red Cell Distribution Width 15.6 % 15.6 % (11.6-17.2) (11.6-17.2) Platelet Count 155 TH/MM3 130 TH/MM3 (150-450) (150-450) Mean Platelet Volume 6.8 FL 7.3 FL (7.0-11.0) (7.0-11.0) Neutrophils (%) (Auto) 72.4 % 77.3 % (16.0-70.0) (16.0-70.0) Lymphocytes (%) (Auto) 21.9 % 16.8 % (9.0-44.0) (9.0-44.0) Monocytes (%) (Auto) 1.6 % (0.0-8.0) 3.3 % (0.0-8.0) Eosinophils (%) (Auto) 3.2 % (0.0-4.0) 1.0 % (0.0-4.0) Basophils (%) (Auto) 0.9 % (0.0-2.0) 1.6 % (0.0-2.0) Neutrophils # (Auto) 1.1 TH/MM3 1.7 TH/MM3 (1.8-7.7) (1.8-7.7) Lymphocytes # (Auto) 0.3 TH/MM3 0.4 TH/MM3 (1.0-4.8) (1.0-4.8) Monocytes # (Auto) 0.0 TH/MM3 0.1 TH/MM3 (0-0.9) (0-0.9) Eosinophils # (Auto) 0.0 TH/MM3 0.0 TH/MM3 (0-0.4) (0-0.4) Basophils # (Auto) 0.0 TH/MM3 0.0 TH/MM3 (0-0.2) (0-0.2) CBC Comment AUTO DIFF AUTO DIFF Differential Total Cells 100 Counted Neutrophils % (Manual) 73 % (16-70) Band Neutrophils % 2 % (0-6) Lymphocytes % 21 % (9-44) Monocytes % 1 % (0-8) Eosinophils % 3 % (0-4) Neutrophils # (Manual) 1.1 TH/MM3 (1.8-7.7) Nucleated Red Blood Cells 1 /100 WBC (0-0) Differential Comment FINAL DIFF AUTO DIFF MANUAL CONFIRMED Platelet Estimate NORMAL LOW (NORMAL) (NORMAL) Platelet Morphology Comment NORMAL NORMAL (NORMAL) (NORMAL) Red Cell Morphology Comment NORMAL (NORMAL) Sodium Level 140 MEQ/L 139 MEQ/L (136-145) (136-145) Potassium Level 3.2 MEQ/L 3.2 MEQ/L (3.5-5.1) (3.5-5.1) Chloride Level 103 MEQ/L 103 MEQ/L (98-107) (98-107) Carbon Dioxide Level 33.1 MEQ/L 29.6 MEQ/L (21.0-32.0) (21.0-32.0) Anion Gap 4 MEQ/L (5-15) 6 MEQ/L (5-15) Blood Urea Nitrogen 14 MG/DL (7-18) 9 MG/DL (7-18) Creatinine 0.90 MG/DL 0.80 MG/DL (0.60-1.30) (0.60-1.30) Estimat Glomerular Filtration 109 ML/MIN 125 ML/MIN Rate (>89) (>89) Random Glucose 94 MG/DL 91 MG/DL (74-106) (74-106) Calcium Level 7.7 MG/DL 7.4 MG/DL (8.5-10.1) (8.5-10.1) Protein Corrected Calcium 8.5 MG/DL (8.5-10.1) Phosphorus Level 2.4 MG/DL (2.5-4.9) Magnesium Level 1.0 MG/DL (1.5-2.5) Total Protein 5.2 GM/DL (6.4-8.2) Test 05/28/17 05:05 White Blood Count 2.0 TH/MM3 (4.0-11.0) Red Blood Count 3.54 MIL/MM3 (4.50-5.90) Hemoglobin 10.6 GM/DL (13.0-17.0) Hematocrit 31.4 % (39.0-51.0) Mean Corpuscular Volume 88.9 FL (80.0-100.0) Mean Corpuscular Hemoglobin 29.9 PG (27.0-34.0) Mean Corpuscular Hemoglobin 33.6 % Concent (32.0-36.0) Red Cell Distribution Width 16.2 % (11.6-17.2) Platelet Count 115 TH/MM3 (150-450) Mean Platelet Volume 7.4 FL (7.0-11.0) Neutrophils (%) (Auto) 73.9 % (16.0-70.0) Lymphocytes (%) (Auto) 17.2 % (9.0-44.0) Monocytes (%) (Auto) 5.7 % (0.0-8.0) Eosinophils (%) (Auto) 0.9 % (0.0-4.0) Basophils (%) (Auto) 2.3 % (0.0-2.0) Neutrophils # (Auto) 1.4 TH/MM3 (1.8-7.7) Lymphocytes # (Auto) 0.3 TH/MM3 (1.0-4.8) Monocytes # (Auto) 0.1 TH/MM3 (0-0.9) Eosinophils # (Auto) 0.0 TH/MM3 (0-0.4) Basophils # (Auto) 0.0 TH/MM3 (0-0.2) CBC Comment AUTO DIFF Differential Total Cells 100 Counted Neutrophils % (Manual) 44 % (16-70) Band Neutrophils % 32 % (0-6) Lymphocytes % 18 % (9-44) Monocytes % 5 % (0-8) Basophils % 1 % (0-2) Neutrophils # (Manual) 1.5 TH/MM3 (1.8-7.7) Differential Comment FINAL DIFF MANUAL Platelet Estimate LOW (NORMAL) Platelet Morphology Comment NORMAL (NORMAL) Potassium Level 3.5 MEQ/L (3.5-5.1) Magnesium Level 1.3 MG/DL (1.5-2.5) Result Diagram: 05/28/17 0505 05/28/17 0505 Procedures * 05/26/17-Vas Cath discontinued * 05/10/17 -medically extubated * 05/06/17 -Left internal jugular Vas-Cath placement * 05/02/17 -intubation * 04/27/17 -bone marrow biopsy * 04/28/17 -MediPort placement * 04/22/17 -axillary lymph node biopsy . Assessment and Plan Disease Oriented Problem List: (1) Non-Hodgkin lymphoma (2) Acute pancreatitis (3) ALDO (acute kidney injury) Symptom Scale: (1) Poor appetite 0-10 Scale: Unable to quantify (nutrition is following) Comment: Other Wood Processing Machine Operator is following. Calorie count completed. (2) Debility 0-10 Scale: Unable to quantify Comment: Progressive secondary to acute illness. Participating in PT. (3) Shortness of breath 0-10 Scale: Unable to quantify Comment: Medically extubated on 05/10/17. Resolved, currently tolerating room air. Pertinent Non-Medical Issues Psychosocial: Single, unemployed. Has 8 children. Highest level of education is eighth grade. No service. Spiritual: No evangelical affiliations. Legal: Designation of healthcare surrogate completed. Ethical issues impacting care: No ethical issues identified. Patient participating in medical decision-making. . Important Contacts HCS/mother Nu Seals . Alt HCS/sister France Garcia . . Prognosis Mr. Werner is a 47-year-old male with no significant medical history, recently diagnosed with with aggressive CD10 positive B-cell non-Hodgkin lymphoma. 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 The patient remains at high risk for further complications, continued decline and . . Code Status: Full Code Plan * CODE STATUS: FULL code. * HEALTHCARE DECISION-MAKING: Patient participating in medical decision making. He seems to have a good understanding of his clinical condition and the ability to weight benefits and burdens of treatment options. Designation of healthcare surrogate completed, patient designated his mother Oxana Seals as HCS and alt HCS sister France Garcia. * GOALS OF CARE: Patient electing to continue with disease specific therapy to include chemotherapy on full CODE STATUS. Discussed with patient concerns regarding his nutritional status and ability. Nutrition is following, calorie count completed. Discussed at length benefits of PEG tube placement and artificial nutrition to supplement caloric needs. Patient to reconsider PEG tube placement if unable to meet caloric needs . * SYMPTOMS: = Poor appetite, nutrition is following. Calorie count completed. Patient currently on Ensure 3 times a day with meals. Patient currently on Marinol 5 mg twice a day, may consider increasing dose to 10 mg twice a day. Patient to reconsider PEG tube placement if unable to meet caloric needs. = Debility, secondary to burden of disease, acute illness, prolonged hospitalization. Currently participating in PT. = Shortness of breath, resolved. Currently tolerating room air . * Palliative care contact information has been provided to patient and family. * Palliative care will continue to follow-up as needed for further clarifications of goals of care, provide emotional support as patient's clinical course continues to evolve. . Time Spent Total Floor Time (mins): 38 (Total time to include review and summary section of medical records since last palliative care visit, physical exam, goals of care conversation with patient.) >50% Counseling/Coord of Care: Yes Attestation To help prompt me to consider important information that might be impacting today's encounter and assessment, information from prior notes written by myself or my colleagues may have been "brought forward" into today's note. My signature on this note, however, is an attestation that I personally performed the exam, history, and/or decision-making noted today, and, unless otherwise indicated, the interactions with patient, family, and staff as well as the review of records all occurred today. I also attest that the listed assessment and stated plan reflect my best clinical judgment today based on the combination of historical information, prior notes, and today's exam/ interactions. When time spent is documented, it refers only to time spent today by the signer, or if indicated, combined time spent today by collaborating physician/nurse practitioner. Demetrice Brody May 28, 2017 11:40
[2017-05-28 12:03] LABS: INTERNATIONAL NORMALIZED RATIO 2.3 RATIO; PROTHROMBIN TIME - PATIENT 26.8 SEC (9.8-11.6)
[2017-05-28] MEDS: FILGRASTIM INJ 300 MCG in DEXTROSE 5% IN WATER INJ 24 ML IV SCH ×2 (15:36)
[2017-05-28] MEDS: WARFARIN SOD 4 MG TAB PO SCH (17:04)
[2017-05-29] VITALS (8 sets, daily range): BP systolic 111–124; BP diastolic 64–86; PULSE 55–85; RESP 17–18; TEMP 96.5–98.2; O2SAT 94–100
[2017-05-29] MEDS: ARTIFICIAL TEARS OPTH OINT 3.5 APPLIC/3.5 GM TUBO EACH EYE SCH ×3 (02:00→17:24)
[2017-05-29] MEDS: ALBUTEROL SULFATE 90 MCG/ACT HFA 18 GM INHALER INH SCH (06:00)
[2017-05-29] MEDS ORDERED: ALBUTEROL SULFATE 90 MCG/ACT HFA 18 GM INHALER INH PRN (07:30)
--- NOTE | 2017-05-29 07:36 | HHI.PR ---
Subjective Remarks f/u; lymphoma/ PE resting comfortably with no distress. no new complaints. denies pain or sob. afebrile. Objective Vitals Vital Signs Date Time Temp Pulse Resp B/P Pulse Ox O2 Delivery O2 Flow Rate FiO2 05/29/17 04:00 96.5 73 17 117/76 96 05/29/17 00:00 96.9 73 18 115/78 96 05/28/17 23:51 86 05/28/17 20:00 96.8 70 18 122/86 100 05/28/17 16:00 97.7 73 18 115/90 96 05/28/17 15:01 72 05/28/17 12:12 72 05/28/17 12:00 97.4 74 18 119/86 97 05/28/17 08:12 67 05/28/17 08:00 96.8 70 16 122/83 98 I/O 05/28/17 05/28/17 05/28/17 05/29/17 05/29/17 05/29/17 07:00 15:00 23:00 07:00 15:00 23:00 Intake Total 0 ml 360 ml Output Total 200 ml 200 ml 800 ml 350 ml Balance -200 ml 160 ml -800 ml -350 ml Intake Oral 0 ml 360 ml Output Urine Total 200 ml 200 ml 800 ml 350 ml # Voids 100 # Bowel Movements 0 Result Diagram: 05/28/17 0505 05/28/17 0505 Imaging Last Impressions Chest X-Ray 05/21/17 06 Signed Impressions: Service Date/Time: May 06:05 - CONCLUSION: Bibasilar opacities the majority represent effusion appreciated without posterior left lower lobe retrocardiac density consolidation atelectasis versus infiltrate there was underlying in the right medial base suggesting air fluid level the possibility of cavitary lesion with air-fluid level cannot be excluded. There is persistent mediastinal mass widening. Stanford Mcdonough MD Abdomen X-Ray 05/15/17 0600 Draft Impressions: Service Date/Time: Monday, May 15, 2017 04:29 - CONCLUSION: Findings of mild small bowel ileus. There has been no significant change when compared to the prior exam. Jadon Carroll MD Central Venous Line 05/15/17 0000 Signed Impressions: Service Date/Time: Monday, May 15, 2017 00:00 - CONCLUSION: Uncomplicated catheter removal. Bryon Calero Jr., MD Catheter Placement X-Ray 05/15/17 0000 Signed Impressions: Service Date/Time: Monday, May 15, 2017 15:13 - CONCLUSION: Mild narrowing involving the brachiocephalic vein near its junction with the SVC. This is not flow limiting. A left-sided vas catheter was placed. Bryon Calero Jr., MD Abdomen/Pelvis CT 05/09/17 0000 Signed Impressions: Service Date/Time: Tuesday, May 09, 2017 21:16 - CONCLUSION: 1. Diffusely distended loops of small bowel down to the cecum suggest ileus. 2. Evidence of mesenteric and retroperitoneal adenopathy. 3. Large bilateral pleural effusions , moderate amount of free fluid in the pelvis and mild ascites in the upper abdomen. 4. Abnormal appearance to the parenchyma of the right kidney with patchy areas of hyperdensity in a mosaic pattern. This of uncertain significance. The patient had iodinated contrast for a CT pulmonary angiogram 7 days ago; this could potentially represent residual parenchymal contrast which would be nonspecific, but raises the possibility of either obstruction or renal infarctions. Bryon Evans MD Renal Ultrasound 05/05/17 0000 Signed Impressions: Service Date/Time: Friday, May 05, 2017 20:06 - CONCLUSION: 1. Kidneys are borderline echogenic which can be seen with medical renal disease. 2. No evidence of hydronephrosis. 3. Abdominal ascites. 4. Multiple dilated bowel loops. 5. Bilateral pleural effusions. Tray Patel MD Head CT 05/03/17 0000 Signed Impressions: Service Date/Time: Wednesday, May 03, 2017 17:22 - CONCLUSION: No acute intracranial disease. No hemorrhage seen. Tray Patel MD CT Angiography 05/02/17 0000 Signed Impressions: Service Date/Time: Tuesday, May 02, 2017 11:10 - CONCLUSION: 1. There is pulmonary embolus in the right pulmonary artery, right upper lobe and lower lobe branches. 2. Resorption of previously seen gas in the left axilla with fluid collection at this site with postprocedural change and possibly postprocedural hemorrhage not significantly changed in size. 3. Interval development of right lung airspace process may represent postobstructive pneumonia and there is mucus within the trachea not present yesterday. 4. Right pleural effusion is smaller and left pleural effusion is larger. 5. No change in bulky adenopathy. Leonor Chavez MD Upper Extremity Ultrasound 04/30/17 0000 Signed Impressions: Service Date/Time: April 12:25 - CONCLUSION: There some superficial thrombosis of a vein in the forearm. The deep venous system is patent. Large fluid collection left axilla. Significant soft tissue edema throughout the upper arm. Rinku Hillman MD Thoracentesis Ultrasound 04/30/17 0000 Signed Impressions: Service Date/Time: April 12:14 - CONCLUSION: Uncomplicated ultrasound guided thoracentesis. Tray Patel MD Port Line Insertion 04/27/17 0000 Signed Impressions: Service Date/Time: Thursday, April 27, 2017 14:56 - CONCLUSION: 1. Bulky bilateral lower cervical lymphadenopathy. 2. Uncomplicated ultrasound and fluoroscopic guided implanted central venous port catheter placement as described in detail above. An 8 [employer] port was placed. Liang Peralta MD Bone Biopsy CT 04/27/17 0000 Signed Impressions: Service Date/Time: Thursday, April 27, 2017 16:22 - CONCLUSION: 1. Uncomplicated CT guided bone marrow aspirate. 2. Uncomplicated CT guided bone marrow biopsy. Tray Patel MD Chest CT 04/25/17 0000 Signed Impressions: Service Date/Time: Wednesday, April 26, 2017 19:00 - CONCLUSION: The right pleural effusion is slightly larger on the left side has not changed. Extensive bulky adenopathy as before and malignancies such as lymphoma is suspected. Leonor Chavez MD Gall Bladder Ultrasound 04/22/17 0000 Signed Impressions: Service Date/Time: Saturday, April 22, 2017 07:35 - CONCLUSION: Small liver with focal abdomen only incompletely evaluated. Large right pleural effusion. effusion. Kirk Briceño MD FACR Abdomen CT 04/20/17 0000 Signed Impressions: Service Date/Time: Thursday, April 20, 2017 19:40 - CONCLUSION: Limited exam because of lack of intravenous contrast. Lymphoma is suspected. Pathological diagnosis could be obtained with ultrasound biopsy of the cervical, axillary or inguinal adenopathy. Kirk Briceño MD FACR Objective Remarks GENERAL: in no acute distress CARDIOVASCULAR: Regular rate and regular rhythm without murmurs, gallops, or rubs. RESPIRATORY: Clear to auscultation. Breath sounds equal bilaterally. No wheezes , rales, or rhonchi. GASTROINTESTINAL: Abdomen soft, non-tender, nondistended. Normal, active bowel sounds MUSCULOSKELETAL: Extremities without clubbing, cyanosis, or edema. NEURO: awake and alert Procedures 04/[address] excision biopsy 04/27- port placement 05/02-TPA 05/06-left IJ Vas-Cath placement endotracheal intubation Medications and IVs Current Medications Ondansetron HCl 4 mg 4 mg ONCE ONCE IVP Last administered on 04/18/17 17:38; Start 04/18/17 at 17:30; Stop 04/18/17 at 17:31; Status DC Sodium Chloride (NS 1000 ml Inj) 1,000 ml @ 1,000 mls/hr Q1H IV Last administered on 04/18/17 17:38; Start 04/18/17 at 17:16; Stop 04/18/17 at 18:15; Status DC Sodium Chloride 2 ml 2 ml UNSCH PRN IV FLUSH FLUSH AFTER USING IV ACCESS Last administered on 05/28/17 08:16; Start 04/18/17 at 17:30 Sodium Chloride 1,000 ml @ 1,000 mls/hr Q1H IV Last administered on 04/18/17 18:40; Start 04/18/17 at 18:37; Stop 04/18/17 at 19:36; Status DC Potassium Chloride (KCl 20 Meq Premix Inj) 100 ml @ 50 mls/hr Q2H IV Last administered on 04/18/17 22:12; Start 04/18/17 at 19:00; Stop 04/18/17 at 22:59; Status DC Ondansetron HCl (Zofran Inj) 4 mg Q6H PRN IVP NAUSEA OR VOMITING Last administered on 04/26/17 06:04; Start 04/18/17 at 19:30; Stop 04/26/17 at 13:02 ; Status DC Morphine Sulfate (Morphine Inj) 2 mg Q3H PRN IV Pain 3-5; if unable to take PO ; Start 04/18/17 at 19:30; Status Cancel Morphine Sulfate (Morphine Inj) 4 mg Q3H PRN IV Pain 6-10;if unable to take PO ; Start 04/18/17 at 19:30; Status Cancel Naloxone HCl (Narcan Inj) 0.4 mg UNSCH PRN IV SEE LABEL COMMENTS; Start at 19:30 Senna/Docusate Sodium (Porsha-Colace) 1 tab BID PO Last administered on 07:52; Start 04/18/17 at 21:00; Stop 05/13/17 at 17:16; Status DC Magnesium Hydroxide (Milk Of Magnesia Liq) 30 ml Q12H PRN PO MILD - MODERATE CONSTIPATION Last administered on 05/09/17 08:01; Start 04/18/17 at 19:30; Stop 05/13/17 at 17:16; Status DC Sennosides (Senokot) 17.2 mg Q12H PRN PO MODERATE - SEVERE CONSTIPATION; Start 04/18/17 at 19:30; Stop 05/13/17 at 17:16; Status DC Bisacodyl (Dulcolax Supp) 10 mg DAILY PRN RECTAL SEVERE CONSITIPATION; Start at 19:30; Stop 05/13/17 at 17:16; Status DC Lactulose 30 ml 30 ml DAILY PRN PO SEVERE CONSITIPATION; Start 04/18/17 at 19:30 ; Stop 05/13/17 at 17:16; Status DC Potassium Chloride/Sodium Chloride 1,000 ml @ 125 mls/hr Q8H IV ; Start at 21:00; Stop 04/18/17 at 21:00; Status DC Potassium Chloride/Sodium Chloride 1,000 ml @ 83 mls/hr Q12H3M IV Last administered on 04/23/17 01:19; Start 04/19/17 at 02:00; Stop 04/23/17 at 09:04 ; Status DC Sodium Chloride (NS 1000 ml Inj) 1,000 ml @ 125 mls/hr Q8H IV Last administered on 04/18/17 20:00; Start 04/18/17 at 20:00; Stop 04/19/17 at 16:01; Status DC Pneumococcal Polyvalent Vaccine 25 mcg 25 mcg ONCE ONCE IM Last administered on 04/19/17 11:20; Start 04/19/17 at 09:00; Stop 04/19/17 at 09:01; Status DC Ceftriaxone Sodium/Sodium Chloride (Rocephin Inj/NS Inj) 100 ml @ 200 mls/hr Q24H IV Last administered on 04/24/17 12:51; Start 04/19/17 at 13:00; Stop at 14:33; Status DC Heparin Sodium (Porcine) (Heparin Inj) 5,000 units Q8HR SQ Last administered on 05/02/17 12:46; Start 04/19/17 at 14:00; Stop 05/19/17 at 10:23; Status DC Azithromycin (Zithromax) 500 mg Q24H PO Last administered on 04/24/17 12:51; Start 04/19/17 at 13:00; Stop 04/24/17 at 14:33; Status DC Clonidine (Catapres) 0.1 mg ONCE ONCE PO Last administered on 04/20/17 22:16 ; Start 04/20/17 at 21:45; Stop 04/20/17 at 21:46; Status DC Nifedipine (Procardia Xl) 30 mg DAILY PO Last administered on 04/25/17 09:42; Start 04/21/17 at 17:00; Stop 04/25/17 at 13:12; Status DC Hydralazine HCl 10 mg 10 mg Q6HR PRN IV PUSH SBP>160, DBP>90 Last administered on 04/27/17 10:15; Start 04/21/17 at 17:00 Cefazolin Sodium/ Sodium Chloride (Ancef Inj/NS Inj) 100 ml @ 200 mls/hr QUALITY COMPLIANCE COORDINATOR IV ; Start 04/21/17 at 21:30; Stop 04/24/17 at 21:29; Status DC Midazolam HCl (Versed Inj) 2 mg STK-MED ONCE .ROUTE Last administered on 09:02; Start 04/22/17 at 09:02; Stop 04/22/17 at 09:03; Status DC Bupivacaine HCl/ Epinephrine Bitart (Sensorcaine-Epi 0.5% 50 ml Inj) 50 ml STK- MED ONCE INFIL ; Start 04/22/17 at 09:25; Stop 04/22/17 at 09:26; Status Cancel Albuterol Sulfate (*ALBUTEROL NEB PERIprocedure ONLY) 2.5 mg STK-MED ONCE NEB Last administered on 04/22/17 10:06; Start 04/22/17 at 10:06; Stop 04/22/17 at 10:07; Status DC Fentanyl Citrate (fentaNYL INJ) 200 mcg STK-MED ONCE .ROUTE ; Start 04/22/17 at 10:10; Stop 04/22/17 at 10:11; Status DC Bupivacaine HCl (Marcaine Pf 0.5% Inj) 30 ml STK-MED ONCE INFIL Last administered on 04/22/17 09:25; Start 04/22/17 at 09:25; Stop 04/22/17 at 10:49 ; Status DC Miscellaneous Information ALL NURSING DEPARTME... UNSCH PRN .XX SEE LABEL COMMENTS; Start 04/22/17 at 10:01; Stop 04/23/17 at 10:00; Status DC Dextrose/Sodium Chloride 1,000 ml @ 60 mls/hr [id number] IV Last administered on 04/24/17 06:40; Start 04/23/17 at 12:45; Stop 04/24/17 at 14:36; Status DC Potassium Chloride/Dextrose/ Sodium Chloride (KCl Inj/D5W-NS 1000 ml Inj) 1,015 ml @ 70 mls/hr [id number] IV Last administered on 04/25/17 05:34; Start at 16:00; Stop 04/25/17 at 13:12; Status DC Promethazine HCl (Phenergan Inj) 25 mg ONCE ONCE IM Last administered on 11:55; Start 04/25/17 at 08:00; Stop 04/25/17 at 08:01; Status DC Nifedipine 60 mg 60 mg DAILY PO Last administered on 04/27/17 10:02; Start at 09:00; Stop 04/27/17 at 14:48; Status DC Potassium Chloride/Dextrose/ Sodium Chloride (KCl Inj/D5W-NS 1000 ml Inj) 1,015 ml @ 60 mls/hr [id number] IV Last administered on 04/27/17 18:18; Start at 15:00; Stop 04/28/17 at 11:49; Status DC Promethazine HCl (Phenergan Inj) 12.5 mg Q8H PRN IM PERSISTENT NAUSEA Last administered on 04/30/17 04:34; Start 04/26/17 at 13:15; Stop 04/30/17 at 11:28 ; Status DC Allopurinol 300 mg 300 mg DAILY PO Last administered on 05/05/17 08:12; Start 04/27/17 at 09:00; Stop 05/05/17 at 12:10; Status DC Vancomycin HCl 1000 mg/Sodium Chloride 250 ml @ 250 mls/hr QUALITY COMPLIANCE COORDINATOR IV Last administered on 04/27/17 13:49; Start 04/27/17 at 10:00; Stop 04/30/17 at 09:59 ; Status DC Cefazolin Sodium/ Dextrose (Ancef 2 Gm Premix) 50 ml @ 100 mls/hr QUALITY COMPLIANCE COORDINATOR IV Last administered on 04/27/17 15:42; Start 04/27/17 at 10:00; Stop 04/30/17 at 09:59; Status DC Nifedipine (Procardia Xl) 90 mg DAILY PO Last administered on 05/28/17 08:17; Start 04/28/17 at 09:00 Clonidine (Catapres) 0.1 mg Q12HR PO ; Start 04/27/17 at 21:00; Status UNV Clonidine (Catapres) 0.1 mg Q6H PRN PO SBP>160, DBP>90 Last administered on 08:07; Start 04/27/17 at 15:00 Heparin Sodium (Porcine) (*HEPARIN CENTRAL FLUSH PERIprocedural ONLY) 500 units STK-MED ONCE IV FLUSH Last administered on 04/27/17 14:51; Start 04/27/17 at 14:51; Stop 04/27/17 at 14:52; Status DC Lidocaine/ Epinephrine (Xylocaine-Epi 1%-1:100,000 Inj) 20 ml STK-MED ONCE .ROUTE Last administered on 04/27/17 14:51; Start 04/27/17 at 14:51; Stop at 14:52; Status DC Midazolam HCl (Versed Inj) 5 mg STK-MED ONCE .ROUTE Last administered on 14:52; Start 04/27/17 at 14:52; Stop 04/27/17 at 14:53; Status DC Fentanyl Citrate 250 mcg 250 mcg STK-MED ONCE .ROUTE Last administered on 14:53; Start 04/27/17 at 14:53; Stop 04/27/17 at 14:54; Status DC Sodium Chloride (NS 1000 ml Inj) 1,000 ml @ 100 mls/hr Q10H IV Last administered on 04/29/17 17:55; Start 04/29/17 at 15:00; Stop 04/30/17 at 00:59 ; Status DC Acetaminophen (Tylenol) 650 mg ONCE ONCE PO Last administered on 04/30/17 16: 44; Start 04/30/17 at 13:00; Stop 04/30/17 at 13:01; Status DC Diphenhydramine HCl 50 mg 50 mg ONCE ONCE PO Last administered on 04/30/17 16 :43; Start 04/30/17 at 13:00; Stop 04/30/17 at 13:01; Status DC Rituximab/Sodium Chloride (Rituxan Inj/NS 500 ml Inj) 571.625 ml @ 0 mls/hr ONCE ONCE IV Last administered on 05/01/17 13:15; Start 04/30/17 at 14:00; Stop 04/30/17 at 14:01; Status DC Prednisone 115 mg 115 mg Q12H PO ; Start 04/30/17 at 13:00; Stop 05/01/17 at 11: 21; Status DC Dexamethasone Sodium Phosphate 20 mg/Granisetron HCl 1 mg/Sodium Chloride 56 ml @ 224 mls/hr Q24H IV ; Start 04/30/17 at 15:00; Stop 05/01/17 at 11:26; Status DC Potassium Chloride 100 ml @ 50 mls/hr BOLUS ONCE IV Last administered on 04/30 10:20; Start 04/30/17 at 10:00; Stop 04/30/17 at 11:59; Status DC Etoposide 95.5 mg/ Doxorubicin HCl 19.1 mg/ Vincristine Sulfate 0.764 mg/ Sodium Chloride 515.089 ml @ 21.462 mls/hr Q24H IV ; Start 04/30/17 at 15:00; Stop 05/18/17 at 13:46; Status DC Cyclophosphamide/ Sodium Chloride (Cytoxan Inj/NS 500 ml Inj) 500 ml @ 500 mls/ hr ONCE ONCE IV ; Start 05/04/17 at 14:00; Stop 05/04/17 at 14:59; Status DC Ondansetron HCl (Zofran Inj) 4 mg Q6HR PRN IV PUSH NAUSEA OR VOMITING Last administered on 05/07/17 10:06; Start 04/30/17 at 11:30 Promethazine HCl (Phenergan Inj) 25 mg Q6H PRN IM NAUSEA OR VOMITING Last administered on 05/01/17 13:27; Start 04/30/17 at 11:30 Acetaminophen/ Hydrocodone Bitart (Surrency 5-325 Mg) 1 tab Q6H PRN PO PAIN SCALE 1 TO 10 Last administered on 05/12/17 02:48; Start 04/30/17 at 11:30 Albuterol/ Ipratropium (Duoneb Neb) 1 ampule ONCE ONCE NEB Last administered on 04/30/17 20:16; Start 04/30/17 at 19:45; Stop 04/30/17 at 20:11; Status DC Albuterol/ Ipratropium (Duoneb Neb) 1 ampule Q2HR NEB PRN NEB sob, wheeze; Start 04/30/17 at 20:45; Stop 05/02/17 at 10:14; Status DC Morphine Sulfate (Morphine Inj) 2 mg ONCE ONCE IV PUSH Last administered on 23:36; Start 04/30/17 at 23:30; Stop 04/30/17 at 23:31; Status DC Furosemide (Lasix Inj) 10 mg ONCE ONCE IV PUSH Last administered on 05/01/17 01:01; Start 05/01/17 at 00:00; Stop 05/01/17 at 00:01; Status DC Furosemide (Lasix Inj) 20 mg ONCE ONCE IV PUSH Last administered on 05/01/17 09:09; Start 05/01/17 at 07:45; Stop 05/01/17 at 07:52; Status DC Acetaminophen (Tylenol) 650 mg NOW ONCE PO Last administered on 05/01/17 10: 51; Start 05/01/17 at 10:45; Stop 05/01/17 at 10:46; Status DC Diphenhydramine HCl 50 mg 50 mg NOW ONCE PO Last administered on 05/01/17 10: 51; Start 05/01/17 at 10:45; Stop 05/01/17 at 10:46; Status DC Rituximab/Sodium Chloride (Rituxan Inj/NS 500 ml Inj) 571.625 ml @ 0 mls/hr ONCE ONCE IV ; Start 05/01/17 at 12:00; Stop 05/01/17 at 12:01; Status DC Acetaminophen (Tylenol) 650 mg ONCE ONCE PO ; Start 05/01/17 at 11:30; Stop at 11:31; Status DC Diphenhydramine HCl (Benadryl) 50 mg ONCE ONCE PO ; Start 05/01/17 at 11:30; Stop 05/01/17 at 11:31; Status DC Prednisone 115 mg 115 mg Q12HR PO Last administered on 05/02/17 20:08; Start 05/01/17 at 11:00; Stop 05/05/17 at 21:01; Status DC Dexamethasone Sodium Phosphate/ Granisetron HCl/ Sodium Chloride (Decadron Inj/ Kytril Inj/NS Inj) 56 ml @ 224 mls/hr Q24H IV ; Start 05/01/17 at 11:30; Stop 05/06/17 at 11:44; Status DC Metoclopramide HCl (Reglan Inj) 10 mg Q8HR IV PUSH Last administered on 04:59; Start 05/01/17 at 15:30; Stop 05/09/17 at 19:03; Status DC Pantoprazole Sodium (Protonix) 40 mg DAILY PO Last administered on 05/06/17 08 :17; Start 05/01/17 at 16:00; Stop 05/07/17 at 11:49; Status DC Furosemide (Lasix Inj) 20 mg ONCE ONCE IV PUSH Last administered on 05/01/17 16:14; Start 05/01/17 at 15:30; Stop 05/01/17 at 15:31; Status DC Albuterol/ Ipratropium (Duoneb Neb) 1 ampule BID NEB INH Last administered on 05/02/17 07:47; Start 05/01/17 at 20:00; Stop 05/02/17 at 10:18; Status DC Furosemide (Lasix Inj) 20 mg STAT ONCE IV PUSH Last administered on 05/02/17 08:40; Start 05/02/17 at 08:30; Stop 05/02/17 at 08:37; Status DC Etomidate (Amidate Inj) 20 mg STK-MED ONCE .ROUTE Last administered on 12:48; Start 05/02/17 at 09:23; Stop 05/02/17 at 09:24; Status DC Dextrose (D50w (Vial) Inj) 25 ml UNSCH PRN IV PUSH HYPOGLYCEMIA-SEE COMMENTS; Start 05/02/17 at 10:00; Stop 05/16/17 at 08:09; Status DC Insulin Human Regular (NovoLIN R SUPPLEMENTAL SCALE) 1 Q6HR SQ Last administered on 05/04/17 18:00; Start 05/02/17 at 12:00; Stop 05/16/17 at 08:09 ; Status DC Chlorhexidine Gluconate (Peridex 0.12% Liq) 15 ml BID@08,20 MT Last administered on 05/27/17 20:00; Start 05/02/17 at 20:00 Magnesium Oxide 800 mg 800 mg UNSCH PRN PO For Magnesium 1.2 - 1.6 mg/dL; Start 05/02/17 at 10:00; Stop 05/03/17 at 13:51; Status DC Magnesium Sulfate 4 gm/Sodium Chloride 100 ml @ 50 mls/hr UNSCH PRN IV For Magnesium 0.9 - 1.1 mg/dL; Start 05/02/17 at 10:00; Stop 05/03/17 at 13:51; Status DC Magnesium Sulfate 2 gm/Sodium Chloride 100 ml @ 50 mls/hr UNSCH PRN IV For Magnesium 1.2 - 1.6 mg/dL; Start 05/02/17 at 10:00; Stop 05/03/17 at 13:51; Status DC Potassium Chloride 100 ml @ 50 mls/hr Q2H PRN IV For Potassium 2.8 - 3.2 mEq/L ; Start 05/02/17 at 10:00; Stop 05/03/17 at 13:51; Status DC Potassium Chloride 100 ml @ 50 mls/hr Q2H PRN IV For Potassium 3.3 - 3.5 mEq/L ; Start 05/02/17 at 10:00; Stop 05/03/17 at 13:51; Status DC Potassium Chloride 100 ml @ 50 mls/hr Q2H PRN IV For Potassium 2.8 - 3.2 mEq/L ; Start 05/02/17 at 10:00; Stop 05/03/17 at 13:51; Status DC Potassium Chloride (KCl 40 Meq Premix Inj) 100 ml @ 25 mls/hr UNSCH PRN IV For Potassium 3.3 - 3.5 mEq/L; Start 05/02/17 at 10:00; Stop 05/03/17 at 13:51; Status DC Potassium Phosphate (K-Phos) 2,000 mg Q4H PRN PO For Phosphorus < 2.5 mg/dL; Start 05/02/17 at 10:00; Stop 05/03/17 at 13:51; Status DC Potassium Phosphate 2000 mg 2,000 mg UNSCH PRN PO/TUBE SEE LABEL COMMENTS; Start 05/02/17 at 10:00; Stop 05/03/17 at 13:51; Status DC Potassium Phosphate 30 mmol/ Sodium Chloride 260 ml @ 42 mls/hr UNSCH PRN IV SEE LABEL COMMENTS; Start 05/02/17 at 10:00; Stop 05/03/17 at 13:52; Status DC Sodium Phosphate/ Sodium Chloride (Sodium Phosphate Inj/NS 250 ml Inj) 250 ml @ 42 mls/hr UNSCH PRN IV For Phosphorus < 2.5 mg/dL; Start 05/02/17 at 10:00; Stop 05/03/17 at 13:52; Status DC Albuterol/ Ipratropium (Duoneb Neb) 1 ampule Q6HR NEB INH Last administered on 05/06/17 03:23; Start 05/02/17 at 10:00; Stop 05/06/17 at 10:00; Status DC Albuterol/ Ipratropium 1 ampule 1 ampule Q2HR NEB PRN INH WHEEZING Last administered on 05/08/17 08:08; Start 05/02/17 at 10:00 Fentanyl Citrate 250 ml @ 0 mls/hr TITRATE IV Last administered on 05/10/17 05 :36; Start 05/02/17 at 10:00 Propofol (Diprivan 1000 Mg/100ml Inj) 100 ml @ 0 mls/hr TITRATE IV Last administered on 05/10/17 06:54; Start 05/02/17 at 10:00 Iohexol 75 ml 75 ml STK-MED ONCE IV Last administered on 05/02/17 11:31; Start 05/02/17 at 11:31; Stop 05/02/17 at 11:32; Status DC Cefepime HCl 2000 mg/Sodium Chloride 100 ml @ 200 mls/hr Q12H IV Last administered on 05/05/17 02:43; Start 05/02/17 at 15:00; Stop 05/05/17 at 11:53 ; Status DC Vancomycin HCl/ Sodium Chloride (Vancomycin Inj/ NS 250 ml Inj) 250 ml @ 250 mls/hr ONCE ONCE IV Last administered on 05/02/17 16:14; Start 05/02/17 at 15 :00; Stop 05/02/17 at 15:59; Status DC Heparin Sodium (Porcine) (Heparin Inj) 5,000 units ONCE ONCE IV Last administered on 05/02/17 15:35; Start 05/02/17 at 16:00; Stop 05/02/17 at 16:01 ; Status DC Miscellaneous Information Patient in critical care unit? Ass... [id number] .XX Last administered on 05/02/17 17:30; Start 05/02/17 at 17:15 Chlorhexidine Gluconate (Chlorhexidine 2% Cloth) 3 pack DAILY@04 TOPICAL Last administered on 05/07/17 03:45; Start 05/03/17 at 04:00; Stop 05/07/17 at 04:01 ; Status DC Chlorhexidine Gluconate 3 pack 3 pack UNSCH PRN TOPICAL HYGIENIC CARE; Start at 17:15; Stop 05/07/17 at 17:08; Status DC Alteplase, Recombinant/ Syringe / Bag (Activase Drip/ Syringe/Bag) 49.9999 ml @ 50 mls/hr ONCE ONCE IV Last administered on 05/02/17 19:58; Start 05/02/17 at 19:15; Stop 05/02/17 at 20:14; Status DC Sodium Chloride (NS Inj) 30 ml ONCE ONCE IVF Last administered on 05/02/17 19 :15; Start 05/02/17 at 19:15; Stop 05/02/17 at 19:28; Status DC Miscellaneous Medication Thrombolysis plan for submass... ONCE ONCE OTHER Last administered on 05/02/17 19:15; Start 05/02/17 at 19:15; Stop 05/02/17 at 19:28; Status DC Heparin Sodium/ Dextrose 250 ml @ 0 mls/hr TITRATE IV Last administered on 05/26 06:57; Start 05/03/17 at 02:00; Stop 05/27/17 at 07:44; Status DC Epinephrine HCl/ Dextrose (Adrenalin (1:1000) Inj/D5W Inj) 250 ml @ 30 mls/hr TITRATE IV Last administered on 05/04/17 09:43; Start 05/03/17 at 10:15; Stop 05/07/17 at 16:44; Status DC Calcium Acetate 2668 mg 2,668 mg TID PO Last administered on 05/27/17 12:23; Start 05/03/17 at 09:00; Stop 05/27/17 at 12:34; Status DC Epoprostenol Sodium/Sodium Chloride (Flolan (30,000 Ng/ml) Neb/NS Inj) 100 ml @ 8 mls/hr Q8H NEB Last administered on 05/04/17 00:17; Start 05/03/17 at 09:00 ; Stop 05/04/17 at 14:14; Status DC Lidocaine HCl 50 ml 50 ml STK-MED ONCE .ROUTE ; Start 05/03/17 at 12:21; Stop at 12:22; Status DC Epoprostenol Sodium 40 ml/ Sodium Chloride 100 ml @ 8 mls/hr Q8H NEB Last administered on 05/06/17 06:04; Start 05/04/17 at 15:00; Stop 05/06/17 at 12:43 ; Status DC Calcium Gluconate 2 gm/Dextrose 120 ml @ 120 mls/hr ONCE ONCE IV Last administered on 05/04/17 20:00; Start 05/04/17 at 20:00; Stop 05/04/17 at 20:59 ; Status DC Cefepime HCl/ Sodium Chloride (Maxipime Inj/NS Inj) 100 ml @ 200 mls/hr Q24H IV Last administered on 05/08/17 01:36; Start 05/06/17 at 03:00; Stop at 23:00; Status DC Allopurinol (Zyloprim) 200 mg DAILY PO Last administered on 05/27/17 08:09; Start 05/06/17 at 09:00; Stop 05/27/17 at 14:46; Status DC Artificial Tears (Tears Naturale Opth Soln) 1 drop Q8H EACH EYE Last administered on 05/07/17 10:06; Start 05/05/17 at 18:00; Stop 05/07/17 at 12:11 ; Status DC Fentanyl Citrate (fentaNYL INJ) 100 mcg STK-MED ONCE IV ; Start 04/22/17 at 12: 00; Stop 05/06/17 at 12:46; Status DC Propofol (Diprivan 200 Mg/20 ml Inj) 200 mg STK-MED ONCE IV ; Start 04/22/17 at 12:00; Stop 05/06/17 at 12:46; Status DC Phenylephrine HCl (Neosynephrine/ NS 1000 Mcg/10ml Syr) 1,000 mcg STK-MED ONCE IV ; Start 04/22/17 at 12:00; Stop 05/06/17 at 12:47; Status DC Ondansetron HCl (Zofran Inj) 4 mg STK-MED ONCE IV PUSH ; Start 04/22/17 at 12:00 ; Stop 05/06/17 at 12:47; Status DC Pantoprazole Sodium (Protonix Inj) 40 mg DAILY IV PUSH Last administered on 08:16; Start 05/07/17 at 12:00 Artificial Tears 1 applic 1 applic Q8H EACH EYE Last administered on 05/29/17 02:00; Start 05/07/17 at 18:00 Sodium Chloride (NS 1000 ml Inj) 1,000 ml @ 0 mls/hr TITRATE PRN IV WITH DIALYSIS Last administered on 05/22/17 12:08; Start 05/07/17 at 18:00 Heparin Sodium (Porcine) 8000 units 8,000 units UNSCH PRN IV FLUSH WITH DIALYSIS; Start 05/07/17 at 18:00 Sodium Chloride 1,000 ml @ 200 mls/hr Q5H PRN IV WITH DIALYSIS Last administered on 05/25/17 10:29; Start 05/07/17 at 18:00 Sodium Chloride (NS 250 ml Inj) 200 ml @ 0 mls/hr UNSCH PRN IV WITH DIALYSIS; Start 05/07/17 at 18:00 Mannitol (Mannitol Inj) 12.5 gm UNSCH PRN IV WITH DIALYSIS; Start 05/07/17 at 18:00 Albumin Human (Albumin 25% Inj) 25 gm UNSCH PRN IV WITH DIALYSIS; Start at 18:00 Sodium Chloride (NS Flush) 5 ml UNSCH PRN IV FLUSH WITH DIALYSIS Last administered on 05/25/17 03:50; Start 05/07/17 at 18:00 Heparin Sodium (Porcine) (Heparin Inj) Dwell Heparin to f... UNSCH PRN OTHER WITH DIALYSIS Last administered on 05/25/17 10:31; Start 05/07/17 at 18:00 Gentamicin Sulfate (Gentamicin (Dialysis) Inj) 10 mg UNSCH PRN OTHER WITH DIALYSIS Last administered on 05/25/17 10:29; Start 05/07/17 at 18:00 Gelatin (Gelfoam 12 Mm/7 Mm Top) 1 foam UNSCH PRN TOPICAL WITH DIALYSIS; Start 05/07/17 at 18:00 Ondansetron HCl (Zofran Inj) 4 mg UNSCH PRN IV NAUSEA OR VOMITING; Start at 18:00 Acetaminophen (Tylenol) 650 mg UNSCH X1 PRN PO WITH DIALYSIS Last administered on 05/08/17 10:07; Start 05/07/17 at 18:00; Stop 05/14/17 at 17:59; Status DC Diphenhydramine HCl (Benadryl) 25 mg UNSCH PRN PO WITH DIALYSIS; Start at 18:00 Nitroglycerin (Nitrostat Sl) 0.4 mg UNSCH PRN SL WITH DIALYSIS; Start 05/07/17 at 18:00 Clonidine (Catapres) 0.1 mg UNSCH PRN PO WITH DIALYSIS; Start 05/07/17 at 18:00 Polyethylene Glycol (Miralax) 17 gm DAILY PO Last administered on 05/10/17 07: 52; Start 05/08/17 at 09:00; Stop 05/13/17 at 17:16; Status DC Lactulose (Lactulose Liq) 30 ml BID PO Last administered on 05/10/17 07:51; Start 05/08/17 at 09:00; Stop 05/13/17 at 17:16; Status DC Bisacodyl (Dulcolax Supp) 10 mg DAILY PRN RECTAL CONSTIPATION; Start 05/08/17 at 08:15; Stop 05/08/17 at 08:16; Status DC Diatrizoate Meglum/ Diatrizoate Sod (Md Kapil Aponte) 18 ml ONCE ONCE PO Last administered on 05/09/17 16:42; Start 05/09/17 at 14:15; Stop 05/09/17 at 14:16; Status DC Heparin Sodium (Porcine) 300 units 300 units NOW ONCE IV ; Start 05/09/17 at 18 :30; Stop 05/09/17 at 18:31; Status DC Potassium Chloride (KCl 20 Meq Premix Inj) 100 ml @ 50 mls/hr BOLUS ONCE IV Last administered on 05/10/17 13:31; Start 05/10/17 at 12:30; Stop 05/10/17 at 14:29; Status DC Sucralfate 1 gm 1 gm Q8HR PO Last administered on 05/13/17 04:46; Start at 14:00; Stop 05/13/17 at 13:59; Status DC Potassium Chloride (KCl 20 Meq Premix Inj) 100 ml @ 50 mls/hr ONCE ONCE IV Last administered on 05/11/17 08:54; Start 05/11/17 at 08:30; Stop 05/11/17 at 10:29; Status DC Metronidazole (Flagyl) 500 mg Q8HR PO Last administered on 05/25/17 05:32; Start 05/11/17 at 14:00; Stop 05/25/17 at 12:07; Status DC Morphine Sulfate 4 mg 4 mg NOW ONCE IV PUSH Last administered on 05/12/17 09: 58; Start 05/12/17 at 09:45; Stop 05/12/17 at 09:46; Status DC Potassium Chloride (KCl 40 Meq Premix Inj) 100 ml @ 25 mls/hr ONCE ONCE IV Last administered on 05/12/17 13:51; Start 05/12/17 at 13:45; Stop 05/12/17 at 17: 44; Status DC Vancomycin HCl (VANCOMYCIN for oral use only) 500 mg QID PO Last administered on 05/25/17 21:09; Start 05/13/17 at 13:00; Stop 05/25/17 at 23:00; Status DC Dronabinol (Marinol) 5 mg BID@11,16 PO Last administered on 05/27/17 16:17; Start 05/14/17 at 16:00 Heparin Sodium (Porcine) (*HEPARIN INJ Periprocedural ONLY) 10,000 units STK- MED ONCE .ROUTE Last administered on 05/15/17 15:50; Start 05/15/17 at 15:24; Stop 05/15/17 at 15:25; Status DC Sodium Chloride (NS Flush) UNSCH PRN IVF SEE PROTOCOL Last administered on 03:51; Start 05/15/17 at 16:00 Heparin Sodium (Porcine) (Heparin Inj) UNSCH PRN IV FLUSH SEE PROTOCOL; Start 05/15/17 at 16:00 Iohexol (Omnipaque 350 Inj) 10 ml STK-MED ONCE IV Last administered on 15:50; Start 05/15/17 at 20:42; Stop 05/15/17 at 20:43; Status DC Potassium Chloride (KCl) 30 meq ONCE ONCE PO Last administered on 05/16/17 11: 06; Start 05/16/17 at 09:00; Stop 05/16/17 at 09:01; Status DC Dexamethasone (Decadron) 40 mg ONCE ONCE PO ; Start 05/16/17 at 13:00; Stop 05/16 at 13:01; Status DC Potassium Chloride (KCl) 30 meq ONCE ONCE PO Last administered on 05/17/17 08: 57; Start 05/17/17 at 07:45; Stop 05/17/17 at 07:46; Status DC Potassium Chloride (KCl) 20 meq ONCE ONCE PO Last administered on 05/17/17 15: 00; Start 05/17/17 at 13:00; Stop 05/17/17 at 13:01; Status DC Granisetron HCl 1 mg 1 mg ONCE ONCE IV PUSH Last administered on 05/18/17 17: 02; Start 05/18/17 at 16:30; Stop 05/18/17 at 16:31; Status DC Dexamethasone Sodium Phosphate/ Sodium Chloride (Decadron Inj/NS Inj) 55 ml @ 220 mls/hr ONCE ONCE IV Last administered on 05/18/17 17:02; Start 05/18/17 at 16:30; Stop 05/18/17 at 16:44; Status DC Doxorubicin HCl 91 mg 91 mg ONCE ONCE IV PUSH Last administered on 05/18/17 17 :35; Start 05/18/17 at 17:00; Stop 05/18/17 at 17:01; Status DC Vincristine Sulfate 2 mg/ Sodium Chloride 52 ml @ 312 mls/hr ONCE ONCE IV Last administered on 05/18/17 17:50; Start 05/18/17 at 17:30; Stop 05/18/17 at 17: 39; Status DC Cyclophosphamide/ Sodium Chloride (Cytoxan Inj/NS 500 ml Inj) 500 ml @ 500 mls/ hr ONCE ONCE IV Last administered on 05/18/17 18:08; Start 05/18/17 at 18:00; Stop 05/18/17 at 18:59; Status DC Prednisone 91 mg 91 mg HS PO Last administered on 05/22/17 19:54; Start at 21:00; Stop 05/22/17 at 21:01; Status DC Sodium Chloride (NS 250 ml Inj) 250 ml @ 0 mls/hr ONCE ONCE IV Last administered on 05/18/17 17:00; Start 05/18/17 at 17:00; Stop 05/18/17 at 17:01; Status DC Warfarin Sodium (Coumadin) 1 mg DAILY@16 PO Last administered on 05/20/17 17:37 ; Start 05/19/17 at 16:00; Stop 05/21/17 at 12:42; Status DC Patient Medication Teaching (Coumadin Booklet) 1 ONCE ONCE OTHER Last administered on 05/19/17 16:00; Start 05/19/17 at 16:00; Stop 05/19/17 at 16:01; Status DC Warfarin Sodium 1 mg 1 mg NOW ONCE PO Last administered on 05/19/17 19:40; Start 05/19/17 at 19:45; Stop 05/19/17 at 19:46; Status DC Sodium Chloride (NS 250 ml Inj) 250 ml @ 15 mls/hr ONCE ONCE IV Last administered on 05/22/17 18:36; Start 05/20/17 at 10:00; Stop 05/21/17 at 02:39 ; Status DC Albuterol Sulfate (Ventolin Hfa Inh) 2 puff Q6HR INH Last administered on 23:45; Start 05/21/17 at 00:00 Warfarin Sodium (Coumadin) 2 mg DAILY@16 PO Last administered on 05/21/17 17: 27; Start 05/21/17 at 16:00; Stop 05/22/17 at 14:13; Status DC Epoetin Oleksandr (Epogen Inj) 10,000 units UNSCH PRN IV WITH DIALYSIS Last administered on 05/25/17 10:30; Start 05/21/17 at 18:30 Warfarin Sodium (Coumadin) 3 mg DAILY@16 PO Last administered on 05/22/17 18: 35; Start 05/22/17 at 16:00; Stop 05/23/17 at 12:26; Status DC Warfarin Sodium (Coumadin) 4 mg DAILY@16 PO Last administered on 05/28/17 17: 04; Start 05/23/17 at 16:00 Sodium Chloride (NS Flush) 5 ml UNSCH PRN IV FLUSH SEE PROTOCOL TABLE Last administered on 05/25/17 03:51; Start 05/24/17 at 06:45 Heparin Sodium (Porcine) (Heparin Central Flush) 250 units UNSCH PRN IV FLUSH SEE PROTOCOL TABLE; Start 05/24/17 at 06:45 Heparin Sodium (Porcine) 500 units 500 units UNSCH IV FLUSH ; Start 05/24/17 at 06:45 Sodium Chloride (NS 250 ml Inj) 250 ml @ 15 mls/hr ONCE ONCE IV ; Start at 10:00; Stop 05/26/17 at 02:39; Status DC Potassium Chloride (KCl) 20 meq ONCE ONCE PO Last administered on 05/25/17 12 :08; Start 05/25/17 at 11:00; Stop 05/25/17 at 11:10; Status DC Potassium Chloride 40 meq 40 meq ONCE ONCE PO Last administered on 05/26/17 09:06; Start 05/26/17 at 08:30; Stop 05/26/17 at 08:31; Status DC Filgrastim/ Dextrose (Neupogen Inj/ D5W Inj) 25 ml @ 100 mls/hr DAILY@14 IV Last administered on 05/28/17 15:36; Start 05/26/17 at 15:00 Potassium Chloride (KCl) 40 meq ONCE ONCE PO Last administered on 05/27/17 08 :24; Start 05/27/17 at 08:15; Stop 05/27/17 at 08:16; Status DC Potassium Chloride 20 meq 20 meq ONCE ONCE PO Last administered on 05/27/17 12:23; Start 05/27/17 at 13:00; Stop 05/27/17 at 13:01; Status DC Magnesium Sulfate/ Dextrose (Magnesium Sulfate 1 Gm Premix) 100 ml @ 100 mls/ hr ONCE ONCE IV Last administered on 05/27/17 14:31; Start 05/27/17 at 13:30 ; Stop 05/27/17 at 14:29; Status DC Allopurinol (Zyloprim) 300 mg DAILY PO Last administered on 05/28/17 08:16; Start 05/28/17 at 09:00 Magnesium Oxide (Mag-Ox) 400 mg Q12HR PO Last administered on 05/28/17 23:45; Start 05/28/17 at 09:00 Potassium Chloride (KCl) 20 meq ONCE ONCE PO Last administered on 05/28/17 09 :54; Start 05/28/17 at 09:00; Stop 05/28/17 at 09:01; Status DC A/P Assessment and Plan A/P Acute Hypoxic Respiratory Failure-resolved --stable on RA Acute Submassive Pulmonary Embolism Right Heart Dysfunction Global severe left ventricular systolic dysfunction Cardiogenic Shock-resolved -- 2d echo 05/02: EF 30-35%, RV dysfunction with dilation --Repeat ECHO limited study scheduled on 05/09-RV function appears to have normalized, question of interatrial shunt for which cardiology consulted-d/w Dr. Taveras, recommended that once off anticoagulation, would need to be on ASA and require f/u echo periodically for evaluation. Acute Kidney Injury-resolved. Hypokalemia-replaced. hypomagnesemia- improved. -- likely secondary to cardiogenic shock -HD was discontinued. -vas-cath was removed- -nephrology has signed off. -replace electrolytes as needed. Hyperphosphatemia-resolved. protein calorie malnutrition- severe ileus-resolved. -certified tower climber following; recommended alternative form of nutrition - PEG was discussed with the patient which he again declined- he states that his appetite is better now- certified tower climber following. --evaluated by General surgery and GI . Large Cell B-cell lymphoma leukopenia Pulmonary Embolism anemia of chronic disease -- hematology/oncology following Dr. Connelly- - received chemo CHOP regimen. -plan for EPOCH chemotherapy June 08- as inpatient. - continue neupogen till resolution of leukopenia. -transfused with PRBC- H/H has improved- will monitor. -heparin was discontinued- continue Coumadin- PT/INR monitoring. C. difficile colitis --finished the course of Vanco and Flagyl- continue PT. Prophylaxis: DVT: coumadin Discharge Planning d/w case management;patient is medicaid pending; no mauro bed available at [facility]. dc planning to rehab in progress but the patient might need to stay in house till the next session of his chemo. Catalina Eller MD May 29, 2017 07:36
[2017-05-29 09:36] LABS: INTERNATIONAL NORMALIZED RATIO 2.6 RATIO; PROTHROMBIN TIME - PATIENT 29.5 SEC (9.8-11.6)
[2017-05-29 09:58] LABS: ANION GAP 7 MEQ/L (5-15)
[2017-05-29 10:05] LABS: ALKALINE PHOSPHATASE 68 U/L (45-117); ALT (GPT) LESS THAN 6 U/L (12-78); AST (GOT) 10 U/L (15-37); BICARBONATE 26.9 MEQ/L (21.0-32.0); BLOOD UREA NITROGEN 6 MG/DL (7-18); CALCIUM-PROTEIN CORRECTED 8.3 MG/DL (8.5-10.1); CHLORIDE 106 MEQ/L (98-107); GLOMERULAR FILTRATION RATE 148 ML/MIN (>89); MAGNESIUM 1.4 MG/DL (1.5-2.5); POTASSIUM 3.2 MEQ/L (3.5-5.1); SODIUM (NA) 140 MEQ/L (136-145); TOTAL BILIRUBIN ADULT 0.5 MG/DL (0.2-1.0)
[2017-05-29 10:25] LABS: AUTOMATED NEUTROPHIL # 0.8 TH/MM3 (1.8-7.7); BASOPHIL % 1.6 % (0.0-2.0); EOSINOPHIL % 1.1 % (0.0-4.0); HEMATOCRIT 30.1 % (39.0-51.0); LYMPH % 28.8 % (9.0-44.0); LYMPHOCYTE # 0.5 TH/MM3 (1.0-4.8); MEAN CELL VOLUME 88.9 FL (80.0-100.0); MEAN CORPUSCULAR HEMOGLOBIN 30.7 PG (27.0-34.0); MEAN CORPUSCULAR HGB CONC 34.5 % (32.0-36.0); MONO % 16.7 % (0.0-8.0); NEUT % 51.8 % (16.0-70.0); PLATELET COUNT 110 TH/MM3 (150-450); RED BLOOD COUNT 3.38 MIL/MM3 (4.50-5.90); RED CELL DISTRIBUTION WIDTH 16.1 % (11.6-17.2); WHITE BLOOD COUNT 1.6 TH/MM3 (4.0-11.0)
[2017-05-29 10:34] LABS: HEMO FLAGS AUTO DIFF
[2017-05-29] MEDS: ALLOPURINOL 300 MG TAB PO SCH (11:28)
[2017-05-29] MEDS: DRONABINOL 5 MG CAP PO SCH ×2 (11:28→17:24)
[2017-05-29] MEDS: NIFEdipine 90 MG SUSTAINED RELEASE TAB PO SCH (11:29)
[2017-05-29] MEDS: PANTOPRAZOLE SODIUM 40 MG VIAL IV PUSH SCH (11:29)
[2017-05-29] MEDS: MAGNESIUM OXIDE 400 MG TAB PO SCH ×2 (11:29→21:00)
[2017-05-29] MEDS: CHLORHEXIDINE 0.12% (ORAL KIT) 15 ML CUP MT SCH ×2 (11:30→20:00)
--- NOTE | 2017-05-29 11:36 | PD.ONC.PN ---
Subjective Subjective Remarks Afebrile overnight. Patient in nad. No complaints. No further diarrhea. +formed stools Objective Data Date Time Temp Pulse Resp B/P Pulse Ox O2 Delivery O2 Flow Rate FiO2 05/29/17 08:00 97.6 85 18 124/86 100 05/29/17 04:00 96.5 73 17 117/76 96 05/29/17 00:00 96.9 73 18 115/78 96 05/28/17 23:51 86 05/28/17 20:00 96.8 70 18 122/86 100 05/28/17 16:00 97.7 73 18 115/90 96 05/28/17 15:01 72 05/28/17 12:12 72 05/28/17 12:00 97.4 74 18 119/86 97 Result Diagram: 05/29/17 0600 05/29/17 0600 Laboratory Results Laboratory Tests Test 05/29/17 06:00 White Blood Count 1.6 TH/MM3 Red Blood Count 3.38 MIL/MM3 Hemoglobin 10.4 GM/DL Hematocrit 30.1 % Mean Corpuscular Volume 88.9 FL Mean Corpuscular Hemoglobin 30.7 PG Mean Corpuscular Hemoglobin 34.5 % Concent Red Cell Distribution Width 16.1 % Platelet Count 110 TH/MM3 Mean Platelet Volume 8.7 FL Neutrophils (%) (Auto) 51.8 % Lymphocytes (%) (Auto) 28.8 % Monocytes (%) (Auto) 16.7 % Eosinophils (%) (Auto) 1.1 % Basophils (%) (Auto) 1.6 % Neutrophils # (Auto) 0.8 TH/MM3 Lymphocytes # (Auto) 0.5 TH/MM3 Monocytes # (Auto) 0.3 TH/MM3 Eosinophils # (Auto) 0.0 TH/MM3 Basophils # (Auto) 0.0 TH/MM3 CBC Comment AUTO DIFF Prothrombin Time 29.5 SEC Prothromb Time International 2.6 RATIO Ratio Sodium Level 140 MEQ/L Potassium Level 3.2 MEQ/L Chloride Level 106 MEQ/L Carbon Dioxide Level 26.9 MEQ/L Anion Gap 7 MEQ/L Blood Urea Nitrogen 6 MG/DL Creatinine 0.69 MG/DL Estimat Glomerular Filtration 148 ML/MIN Rate Random Glucose 71 MG/DL Calcium Level 7.3 MG/DL Protein Corrected Calcium 8.3 MG/DL Magnesium Level 1.4 MG/DL Total Bilirubin 0.5 MG/DL Aspartate Amino Transf 10 U/L (AST/SGOT) Alanine Aminotransferase LESS THAN 6 U/L (ALT/SGPT) Alkaline Phosphatase 68 U/L Total Protein 5.2 GM/DL Albumin 2.1 GM/DL Administered Medications Medications (Trade) Dose Ordered Sig/Shyla Route PRN Reason Start Time Stop Time Status Last Admin Dose Admin Sodium Chloride (NS Flush) 2 ml UNSCH PRN IV FLUSH FLUSH AFTER USING IV ACCESS 04/18/17 17:30 05/28/17 08:16 Hydralazine HCl (Apresoline Inj) 10 mg Q6HR PRN IV PUSH SBP>160, DBP>90 04/21/17 17:00 04/27/17 10:15 Nifedipine (Procardia Xl) 90 mg DAILY PO 04/28/17 09:00 05/29/17 11:29 Clonidine (Catapres) 0.1 mg Q6H PRN PO SBP>160, DBP>90 04/27/17 15:00 04/29/17 08:07 Ondansetron HCl (Zofran Inj) 4 mg Q6HR PRN IV PUSH NAUSEA OR VOMITING 04/30/17 11:30 05/07/17 10:06 Promethazine HCl (Phenergan Inj) 25 mg Q6H PRN IM NAUSEA OR VOMITING 04/30/17 11:30 05/01/17 13:27 Acetaminophen/ Hydrocodone Bitart ([place] 5-325 Mg) 1 tab Q6H PRN PO PAIN SCALE 1 TO 10 04/30/17 11:30 05/12/17 02:48 Chlorhexidine Gluconate 15 ml 15 ml BID@08,20 MT 05/02/17 20:00 05/29/17 11:30 Fentanyl Citrate 250 ml @ 0 mls/hr TITRATE IV 05/02/17 10:00 05/10/17 05:36 Propofol (Diprivan 1000 Mg/100ml Inj) 100 ml @ 0 mls/hr TITRATE IV 05/02/17 10:00 05/10/17 06:54 Miscellaneous Information Patient in critical care unit? Ass... [id number] .XX 05/02/17 17:15 05/02/17 17:30 Pantoprazole Sodium (Protonix Inj) 40 mg DAILY IV PUSH 05/07/17 12:00 05/29/17 11:29 Artificial Tears 1 applic 1 applic Q8H EACH EYE 05/07/17 18:00 05/29/17 11:30 Sodium Chloride 1,000 ml @ 0 mls/hr TITRATE PRN IV WITH DIALYSIS 05/07/17 18:00 05/22/17 12:08 Sodium Chloride (NS 1000 ml Inj) 1,000 ml @ 200 mls/hr Q5H PRN IV WITH DIALYSIS 05/07/17 18:00 05/25/17 10:29 Sodium Chloride (NS Flush) 5 ml UNSCH PRN IV FLUSH WITH DIALYSIS 05/07/17 18:00 05/25/17 03:50 Heparin Sodium (Porcine) (Heparin Inj) Dwell Heparin to f... UNSCH PRN OTHER WITH DIALYSIS 05/07/17 18:00 05/25/17 10:31 Gentamicin Sulfate (Gentamicin (Dialysis) Inj) 10 mg UNSCH PRN OTHER WITH DIALYSIS 05/07/17 18:00 05/25/17 10:29 Dronabinol (Marinol) 5 mg BID@11,16 PO 05/14/17 16:00 05/29/17 11:28 Sodium Chloride (NS Flush) UNSCH PRN IVF SEE PROTOCOL 05/15/17 16:00 05/25/17 03:51 Epoetin Oleksandr (Epogen Inj) 10,000 units UNSCH PRN IV WITH DIALYSIS 05/21/17 18:30 05/25/17 10:30 Warfarin Sodium (Coumadin) 4 mg DAILY@16 PO 05/23/17 16:00 05/28/17 17:04 Sodium Chloride 5 ml 5 ml UNSCH PRN IV FLUSH SEE PROTOCOL TABLE 05/24/17 06:45 05/25/17 03:51 Filgrastim/ Dextrose (Neupogen Inj/ D5W Inj) 25 ml @ 100 mls/hr DAILY@14 IV 05/26/17 15:00 05/28/17 15:36 Allopurinol (Zyloprim) 300 mg DAILY PO 05/28/17 09:00 05/29/17 11:28 Magnesium Oxide (Mag-Ox) 400 mg Q12HR PO 05/28/17 09:00 05/29/17 11:29 Objective Remarks GENERAL: Middle aged male upright in bed in nad. SKIN: Warm and dry. HEAD: Normocephalic. EYES: no injection or drainage. NECK: Supple, trachea midline. CARDIOVASCULAR: Regular rate and rhythm RESPIRATORY: Breath sounds equal bilaterally. No accessory muscle use. GASTROINTESTINAL: Abdomen soft, non-tender, nondistended. EXTREMITIES: No cyanosis NEUROLOGICAL: awake and alert, normal speech Assessment/Plan Problem List: (1) Non-Hodgkin lymphoma Status: Acute Plan: --Has aggressive triple hit lymphoma. --Received Rituxan x1. --Neck adenopathy relatively stable. --05/18-->CHOP chemotherapy -- Will likely receive EPOCH chemotherapy on 06/08. (2) Pulmonary emboli Status: Acute Plan: --on coumadin --CTA showed large PE --s/p tpa therapy on 05.02 (3) Normocytic anemia Status: Acute Plan: --multifactorial due to chronic disease, renal failure --monitor and transfuse as needed Assessment 47y/o male admitted with pancreatitis, found to have NHL. Plan 1. Continue Neupogen 2. clear for discharge--would be a good candidate for [facility] 3. plan to readmit on 06/08 for EPOCH chemo Problem Qualifiers (1) Non-Hodgkin lymphoma: Brenda Platt May 29, 2017 11:36
[2017-05-29 11:51] LABS: BANDS 10 % (0-6); BASOPHILS 1 % (0-2); NEUTROPHIL # MANUAL DIFF 0.9 TH/MM3 (1.8-7.7); POLYS (SEG NEUTROPHILS) 48 % (16-70); WBC DIFF SAMPLE 100
[2017-05-29 11:52] LABS: PLATELET ESTIMATE SMEAR LOW (NORMAL); PLATELET MORPHOLOGY NORMAL (NORMAL); SCAN/DIFF FINAL DIFF MANUAL; SMUDGE CELLS PRESENT PRESENT
[2017-05-29] MEDS ORDERED: POTASSIUM CHLORIDE 10 MEQ CONTROLLED RELEASE TAB PO ONE ×2 (14:00→18:00)
[2017-05-29] MEDS: FILGRASTIM INJ 300 MCG in DEXTROSE 5% IN WATER INJ 24 ML IV SCH ×2 (15:51)
--- NOTE | 2017-05-29 16:31 | HHI.HCPN ---
Reason for visit a. To assist with evaluation and management of symptoms including: Debility. b. To assist medical decision maker(s) with: better understanding of current medical conditions; weighing benefits/burdens of medical treatment options; making medical treatment decisions. . Subjective/Interval History Mr. Werner is a 47-year-old male with no significant medical history, recently diagnosed with aggressive CD10 positive B-cell non-Hodgkin lymphoma. Clinical course complicated by large pulmonary embolism post TPA, acute hypoxemic respiratory failure required intubation and mechanical ventilation on 05/02/17 and cardiogenic shock requiring inotropic therapy and acute kidney injury requiring PUBLIC HEALTH VETERINARIAN. Patient medically extubated on 05/10/17. Palliative care was consulted for assistance with goals of care and to determine healthcare surrogate decision maker. Patient seen in his room, he was resting in bed in no acute distress. Patient is alert and oriented 3. Denies shortness of breath, nausea and vomiting. Currently on room air, tolerating well. Patient continues to endorse poor appetite; however, reports that he has been trying to increase his oral intake. Reports that his mother has been intermittently bringing food from home which he prefers over hospital food. Patient remains afebrile, stable hemodynamically. Oxygen saturation in the mid to high 90s. Laboratory workup today revealing WBC 1.6, Hgb 10.4, platelet count 110. Patient has been cleared for discharge by oncology; however, rehabilitation has been recommended but patient's insurance application is a still pending. As per oncology, patient to start second cycle of chemotherapy on 06/08/17 as inpatient, likely to remain hospitalized until then given psychosocial situation. Telephone conversation with patient's mother Oxana Seals. Medical update provided. Discussed disposition given the above. Case discussed with employment evaluator/case manager. . Family/friend interactions See interval note. . Advance Directives Living Will: Never completed Health Care Surrogate: Copy in medical record Durable Power of Marine Engineer: Never completed Advance Directive Specifics Date completed: 04/29/17. . Health Care Surrogate(s): [facility] [place] Oxana Seals. Alternate surrogate -sister France Garcia. . Documented care wishes: No living will completed. . Significant change in goals: Goals of care remain unchanged. . Objective Vital Signs Date Time Temp Pulse Resp B/P Pulse Ox O2 Delivery O2 Flow Rate FiO2 05/29/17 12:25 81 05/29/17 12:00 98.2 78 18 111/64 100 8/18/17 08:00 97.6 85 18 124/86 100 05/29/17 04:00 96.5 73 17 117/76 96 05/29/17 00:00 96.9 73 18 115/78 96 05/28/17 23:51 86 05/28/17 20:00 96.8 70 18 122/86 100 Intake & Output 05/29/17 05/29/17 07:00 19:00 Intake Total 400 ml Output Total 1150 ml Balance -1150 ml 400 ml Intake Oral 400 ml IV Total 0 ml Output Urine Total 1150 ml Physical Exam CONSTITUTIONAL/GENERAL: This is a thin male in no acute distress. TUBES/LINES/DRAINS: Mediport right chest, PIV's. SKIN: No jaundice, rashes, or lesions. Skin dry to upper extremities. No wounds seen anteriorly. Not diaphoretic. HEAD: Atraumatic. Normocephalic. EYES: Pupils equal and round and reactive. No scleral icterus. No injection or drainage. ENT: Hearing grossly normal. Nose without bleeding or purulent drainage. Moist oral mucosa. Poor dentition, dry lips. NECK: Trachea midline. Supple, nontender. CARDIOVASCULAR: Regular rate and rhythm without murmurs, gallops, or rubs. Peripheral pulses symmetric. RESPIRATORY/CHEST: Symmetric, clear breath sounds bilaterally. Patient on RA. GASTROINTESTINAL: Abdomen soft, non-tender, with + bowel sounds. MUSCULOSKELETAL: Extremities without clubbing, cyanosis. No edema. No mottling or clubbing. NEUROLOGICAL: A & O x self, place and situation. Appropriate. PSYCHIATRIC: calm. . Diagnostic Tests Laboratory Laboratory Tests Test 05/27/17 05/28/17 05/28/17 05/29/17 06:14 05:05 11:30 06:00 White Blood Count 2.2 TH/MM3 2.0 TH/MM3 1.6 TH/MM3 (4.0-11.0) (4.0-11.0) (4.0-11.0) Red Blood Count 3.44 MIL/MM3 3.54 MIL/MM3 3.38 MIL/MM3 (4.50-5.90) (4.50-5.90) (4.50-5.90) Hemoglobin 10.3 GM/DL 10.6 GM/DL 10.4 GM/DL (13.0-17.0) (13.0-17.0) (13.0-17.0) Hematocrit 30.0 % 31.4 % 30.1 % (39.0-51.0) (39.0-51.0) (39.0-51.0) Mean Corpuscular Volume 87.3 FL 88.9 FL 88.9 FL (80.0-100.0) (80.0-100.0) (80.0-100.0) Mean Corpuscular Hemoglobin 30.0 PG 29.9 PG 30.7 PG (27.0-34.0) (27.0-34.0) (27.0-34.0) Mean Corpuscular Hemoglobin 34.4 % 33.6 % 34.5 % Concent (32.0-36.0) (32.0-36.0) (32.0-36.0) Red Cell Distribution Width 15.6 % 16.2 % 16.1 % (11.6-17.2) (11.6-17.2) (11.6-17.2) Platelet Count 130 TH/MM3 115 TH/MM3 110 TH/MM3 (150-450) (150-450) (150-450) Mean Platelet Volume 7.3 FL 7.4 FL 8.7 FL (7.0-11.0) (7.0-11.0) (7.0-11.0) Neutrophils (%) (Auto) 77.3 % 73.9 % 51.8 % (16.0-70.0) (16.0-70.0) (16.0-70.0) Lymphocytes (%) (Auto) 16.8 % 17.2 % 28.8 % (9.0-44.0) (9.0-44.0) (9.0-44.0) Monocytes (%) (Auto) 3.3 % (0.0-8.0) 5.7 % (0.0-8.0) 16.7 % (0.0-8.0) Eosinophils (%) (Auto) 1.0 % (0.0-4.0) 0.9 % (0.0-4.0) 1.1 % (0.0-4.0) Basophils (%) (Auto) 1.6 % (0.0-2.0) 2.3 % (0.0-2.0) 1.6 % (0.0-2.0) Neutrophils # (Auto) 1.7 TH/MM3 1.4 TH/MM3 0.8 TH/MM3 (1.8-7.7) (1.8-7.7) (1.8-7.7) Lymphocytes # (Auto) 0.4 TH/MM3 0.3 TH/MM3 0.5 TH/MM3 (1.0-4.8) (1.0-4.8) (1.0-4.8) Monocytes # (Auto) 0.1 TH/MM3 0.1 TH/MM3 0.3 TH/MM3 (0-0.9) (0-0.9) (0-0.9) Eosinophils # (Auto) 0.0 TH/MM3 0.0 TH/MM3 0.0 TH/MM3 (0-0.4) (0-0.4) (0-0.4) Basophils # (Auto) 0.0 TH/MM3 0.0 TH/MM3 0.0 TH/MM3 (0-0.2) (0-0.2) (0-0.2) CBC Comment AUTO DIFF AUTO DIFF AUTO DIFF Differential Comment AUTO DIFF FINAL DIFF FINAL DIFF CONFIRMED MANUAL MANUAL Platelet Estimate LOW (NORMAL) LOW (NORMAL) LOW (NORMAL) Platelet Morphology Comment NORMAL NORMAL NORMAL (NORMAL) (NORMAL) (NORMAL) Prothrombin Time 29.5 SEC 26.8 SEC 29.5 SEC (9.8-11.6) (9.8-11.6) (9.8-11.6) Prothromb Time International 2.6 RATIO 2.3 RATIO 2.6 RATIO Ratio Activated Partial 56.6 SEC Thromboplast Time (24.3-30.1) Sodium Level 139 MEQ/L 140 MEQ/L (136-145) (136-145) Potassium Level 3.2 MEQ/L 3.5 MEQ/L 3.2 MEQ/L (3.5-5.1) (3.5-5.1) (3.5-5.1) Chloride Level 103 MEQ/L 106 MEQ/L (98-107) (98-107) Carbon Dioxide Level 29.6 MEQ/L 26.9 MEQ/L (21.0-32.0) (21.0-32.0) Anion Gap 6 MEQ/L (5-15) 7 MEQ/L (5-15) Blood Urea Nitrogen 9 MG/DL (7-18) 6 MG/DL (7-18) Creatinine 0.80 MG/DL 0.69 MG/DL (0.60-1.30) (0.60-1.30) Estimat Glomerular Filtration 125 ML/MIN 148 ML/MIN Rate (>89) (>89) Random Glucose 91 MG/DL 71 MG/DL (74-106) (74-106) Calcium Level 7.4 MG/DL 7.3 MG/DL (8.5-10.1) (8.5-10.1) Protein Corrected Calcium 8.5 MG/DL 8.3 MG/DL (8.5-10.1) (8.5-10.1) Phosphorus Level 2.4 MG/DL (2.5-4.9) Magnesium Level 1.0 MG/DL 1.3 MG/DL 1.4 MG/DL (1.5-2.5) (1.5-2.5) (1.5-2.5) Total Protein 5.2 GM/DL 5.2 GM/DL (6.4-8.2) (6.4-8.2) Differential Total Cells 100 100 Counted Neutrophils % (Manual) 44 % (16-70) 48 % (16-70) Band Neutrophils % 32 % (0-6) 10 % (0-6) Lymphocytes % 18 % (9-44) 26 % (9-44) Monocytes % 5 % (0-8) 15 % (0-8) Basophils % 1 % (0-2) 1 % (0-2) Neutrophils # (Manual) 1.5 TH/MM3 0.9 TH/MM3 (1.8-7.7) (1.8-7.7) Smudge Cells PRESENT Total Bilirubin 0.5 MG/DL (0.2-1.0) Aspartate Amino Transf 10 U/L (15-37) (AST/SGOT) Alanine Aminotransferase LESS THAN 6 (ALT/SGPT) U/L (12-78) Alkaline Phosphatase 68 U/L (45-117) Albumin 2.1 GM/DL (3.4-5.0) Result Diagram: 05/29/17 0600 05/29/17 0600 Procedures * 05/26/17-Vas Cath discontinued * 05/10/17 -medically extubated * 05/06/17 -Left internal jugular Vas-Cath placement * 05/02/17 -intubation * 04/27/17 -bone marrow biopsy * 04/28/17 -MediPort placement * 04/22/17 -axillary lymph node biopsy . Assessment and Plan Disease Oriented Problem List: (1) Non-Hodgkin lymphoma (2) Acute pancreatitis (3) ALDO (acute kidney injury) Symptom Scale: (1) Poor appetite 0-10 Scale: Unable to quantify (nutrition is following) Comment: Debit Agent is following. Calorie count completed. (2) Debility 0-10 Scale: Unable to quantify Comment: Progressive secondary to acute illness. Participating in PT. (3) Shortness of breath 0-10 Scale: Unable to quantify Comment: Medically extubated on 05/10/17. Resolved, currently tolerating room air. Pertinent Non-Medical Issues Psychosocial: Single, unemployed. Has 8 children. Highest level of education is eighth grade. No service. Spiritual: No evangelical affiliations. Legal: Designation of healthcare surrogate completed. Ethical issues impacting care: No ethical issues identified. Patient participating in medical decision-making. . Important Contacts [facility]/mother Nu Seals . Alt [facility]/sister France Garcia . . Prognosis Mr. Werner is a 47-year-old male with no significant medical history, recently diagnosed with with aggressive CD10 positive B-cell non-Hodgkin lymphoma. Clinical course complicated by PE status post TPA, cardiogenic shock, acute hypoxemic respiratory failure requiring intubation and mechanical ventilation and worsening acute kidney injury requiring PUBLIC HEALTH VETERINARIAN. The patient remains at high risk for further complications, continued decline and . . Code Status: Full Code Plan * CODE STATUS: FULL code. * HEALTHCARE DECISION-MAKING: Patient participating in medical decision making. He seems to have a good understanding of his clinical condition and the ability to weight benefits and burdens of treatment options. Designation of healthcare surrogate completed, patient designated his mother Oxana Seals as HCS and alt [facility] sister France Garcia. * GOALS OF CARE: Patient's goal at this time is for ongoing aggressive attempts at disease specific therapy, continue chemotherapy. Discussed with patient concerns regarding his nutritional status and debility. Debit Agent is following, calorie count completed. Patient to reconsider PEG tube placement if unable to meet caloric needs. Patient has been cleared to discharge by oncology , however, PT at rehabilitation has been recommended. Long-term plans for this patient are impacted by his psychosocial situation, he is self-pay, pending SSI approval. Patient has no payer source or coverage for rehabilitation at this time. Likely to remain inpatient until restart chemotherapy 06/08. * SYMPTOMS: = Poor appetite, nutrition is following. Calorie count completed. Patient currently on Ensure 3 times a day with meals. Patient currently on Marinol 5 mg twice a day, may consider increasing dose to 10 mg twice a day. Patient to reconsider PEG tube placement if unable to meet caloric needs. = Debility, secondary to burden of disease, acute illness, prolonged hospitalization. Currently participating in PT. = Shortness of breath, resolved. Currently tolerating room air . * Palliative care contact information has been provided to patient and family. * Palliative care will continue to follow-up as needed for further clarifications of goals of care, provide emotional support as patient's clinical course continues to evolve. . Time Spent Total Floor Time (mins): 32 (Total time to include review and summarization of medical records, physical exam, goals of care conversation with patient, telephone conversation with patient's mother Oxana Seals and case discussion with employment evaluator/case manager.) >50% Counseling/Coord of Care: Yes Attestation To help prompt me to consider important information that might be impacting today's encounter and assessment, information from prior notes written by myself or my colleagues may have been "brought forward" into today's note. My signature on this note, however, is an attestation that I personally performed the exam, history, and/or decision-making noted today, and, unless otherwise indicated, the interactions with patient, family, and staff as well as the review of records all occurred today. I also attest that the listed assessment and stated plan reflect my best clinical judgment today based on the combination of historical information, prior notes, and today's exam/ interactions. When time spent is documented, it refers only to time spent today by the signer, or if indicated, combined time spent today by collaborating physician/nurse practitioner. Demetrice Brody May 29, 2017 16:31
[2017-05-29] MEDS: WARFARIN SOD 4 MG TAB PO SCH (17:24)
[2017-05-30] VITALS (8 sets, daily range): BP systolic 116–134; BP diastolic 61–89; PULSE 56–103; RESP 14–18; TEMP 97–98.6; O2SAT 96–98
[2017-05-30] MEDS: ARTIFICIAL TEARS OPTH OINT 3.5 APPLIC/3.5 GM TUBO EACH EYE SCH ×3 (02:00→16:35)
--- NOTE | 2017-05-30 08:25 | HHI.PR ---
Subjective Remarks Pt has no complaints today. States that he hasn't yet tried his breakfast but he will do his best to eat. Denies any CP/SOB/N/V Objective Vitals Vital Signs Date Time Temp Pulse Resp B/P Pulse Ox O2 Delivery O2 Flow Rate FiO2 05/30/17 04:00 97.0 60 18 126/66 96 05/30/17 00:00 97.0 103 18 134/73 98 05/29/17 20:00 97.7 66 17 118/75 94 05/29/17 16:00 98.0 55 18 115/64 100 05/29/17 12:25 81 05/29/17 12:00 98.2 78 18 111/64 100 I/O 05/29/17 05/29/17 05/29/17 05/30/17 05/30/17 05/30/17 06:59 14:59 22:59 06:59 14:59 22:59 Intake Total 400 ml 840 ml Output Total 350 ml Balance -350 ml 400 ml 840 ml Intake Oral 400 ml 840 ml IV Total 0 ml Output Urine Total 350 ml # Voids 4 # Bowel Movements 1 Result Diagram: 05/29/17 0600 05/29/17 06 Imaging Last Impressions Chest X-Ray 05/21/17599 Signed Impressions: Service Date/Time: May 06:05 - CONCLUSION: Bibasilar opacities the majority represent effusion appreciated without posterior left lower lobe retrocardiac density consolidation atelectasis versus infiltrate there was underlying in the right medial base suggesting air fluid level the possibility of cavitary lesion with air-fluid level cannot be excluded. There is persistent mediastinal mass widening. Stanford Mcdonough MD Abdomen X-Ray 05/15/17 06 Draft Impressions: Service Date/Time: Monday, May 15, 2017 04:29 - CONCLUSION: Findings of mild small bowel ileus. There has been no significant change when compared to the prior exam. Jadon Carroll MD Central Venous Line 05/15/17 0000 Signed Impressions: Service Date/Time: Monday, May 15, 2017 00:00 - CONCLUSION: Uncomplicated catheter removal. Bryon Calero Jr., MD Catheter Placement X-Ray 05/15/17 0000 Signed Impressions: Service Date/Time: Monday, May 15, 2017 15:13 - CONCLUSION: Mild narrowing involving the brachiocephalic vein near its junction with the SVC. This is not flow limiting. A left-sided vas catheter was placed. Bryon Calero Jr., MD Abdomen/Pelvis CT 05/09/17 0000 Signed Impressions: Service Date/Time: Tuesday, May 09, 2017 21:16 - CONCLUSION: 1. Diffusely distended loops of small bowel down to the cecum suggest ileus. 2. Evidence of mesenteric and retroperitoneal adenopathy. 3. Large bilateral pleural effusions , moderate amount of free fluid in the pelvis and mild ascites in the upper abdomen. 4. Abnormal appearance to the parenchyma of the right kidney with patchy areas of hyperdensity in a mosaic pattern. This of uncertain significance. The patient had iodinated contrast for a CT pulmonary angiogram 7 days ago; this could potentially represent residual parenchymal contrast which would be nonspecific, but raises the possibility of either obstruction or renal infarctions. Bryon Evans MD Renal Ultrasound 05/05/17 0000 Signed Impressions: Service Date/Time: Friday, May 05, 2017 20:06 - CONCLUSION: 1. Kidneys are borderline echogenic which can be seen with medical renal disease. 2. No evidence of hydronephrosis. 3. Abdominal ascites. 4. Multiple dilated bowel loops. 5. Bilateral pleural effusions. Tray Patel MD Head CT 05/03/17 0000 Signed Impressions: Service Date/Time: Wednesday, May 03, 2017 17:22 - CONCLUSION: No acute intracranial disease. No hemorrhage seen. Tray Patel MD CT Angiography 05/02/17 0000 Signed Impressions: Service Date/Time: Tuesday, May 02, 2017 11:10 - CONCLUSION: 1. There is pulmonary embolus in the right pulmonary artery, right upper lobe and lower lobe branches. 2. Resorption of previously seen gas in the left axilla with fluid collection at this site with postprocedural change and possibly postprocedural hemorrhage not significantly changed in size. 3. Interval development of right lung airspace process may represent postobstructive pneumonia and there is mucus within the trachea not present yesterday. 4. Right pleural effusion is smaller and left pleural effusion is larger. 5. No change in bulky adenopathy. Leonor Chavez MD Upper Extremity Ultrasound 04/30/17 0000 Signed Impressions: Service Date/Time: April 12:25 - CONCLUSION: There some superficial thrombosis of a vein in the forearm. The deep venous system is patent. Large fluid collection left axilla. Significant soft tissue edema throughout the upper arm. Rinku Hillman MD Thoracentesis Ultrasound 04/30/17 0000 Signed Impressions: Service Date/Time: April 12:14 - CONCLUSION: Uncomplicated ultrasound guided thoracentesis. Tray Patel MD Port Line Insertion 04/27/17 0000 Signed Impressions: Service Date/Time: Thursday, April 27, 2017 14:56 - CONCLUSION: 1. Bulky bilateral lower cervical lymphadenopathy. 2. Uncomplicated ultrasound and fluoroscopic guided implanted central venous port catheter placement as described in detail above. An 8 [employer] port was placed. Liang Peralta MD Bone Biopsy CT 04/27/17 0000 Signed Impressions: Service Date/Time: Thursday, April 27, 2017 16:22 - CONCLUSION: 1. Uncomplicated CT guided bone marrow aspirate. 2. Uncomplicated CT guided bone marrow biopsy. Tray Patel MD Chest CT 04/25/17 0000 Signed Impressions: Service Date/Time: Wednesday, April 26, 2017 19:00 - CONCLUSION: The right pleural effusion is slightly larger on the left side has not changed. Extensive bulky adenopathy as before and malignancies such as lymphoma is suspected. Leonor Chavez MD Gall Bladder Ultrasound 04/22/17 0000 Signed Impressions: Service Date/Time: Saturday, April 22, 2017 07:35 - CONCLUSION: Small liver with focal abdomen only incompletely evaluated. Large right pleural effusion. effusion. Kirk Briceño MD FACR Abdomen CT 04/20/17 0000 Signed Impressions: Service Date/Time: Thursday, April 20, 2017 19:40 - CONCLUSION: Limited exam because of lack of intravenous contrast. Lymphoma is suspected. Pathological diagnosis could be obtained with ultrasound biopsy of the cervical, axillary or inguinal adenopathy. Kirk Briceño MD FACR Objective Remarks GENERAL: laying in bed, appears comfortable. Skin: very dry EYES: EOMI CARDIOVASCULAR: Regular rate and regular rhythm without murmurs RESPIRATORY: Clear to auscultation. Breath sounds equal bilaterally. No wheezes GASTROINTESTINAL: Abdomen soft, non-tender, nondistended. MUSCULOSKELETAL: Extremities without edema. moves all extremities. NEURO: awake and alert however he is quiet. Procedures 04/[address] excision biopsy 04/27- port placement 05/02-TPA 05/06-left IJ Vas-Cath placement endotracheal intubation A/P Problem List: (1) Acute pancreatitis ICD Code: K85.90 Status: Resolved (2) Transaminitis ICD Code: R74.0 Status: Acute (3) ALDO (acute kidney injury) ICD Code: N17.9 Status: Acute (4) Pleural effusion ICD Code: J90 Status: Acute Assessment and Plan Acute Hypoxic Respiratory Failure-resolved- stable on RA Acute Submassive Pulmonary Embolism Right Heart Dysfunction Global severe left ventricular systolic dysfunction Cardiogenic Shock-resolved -- 2d echo 05/02: EF 30-35%, RV dysfunction with dilation --Repeat ECHO limited study scheduled on 05/09-RV function appears to have normalized, question of interatrial shunt for which cardiology consulted- cards recommended that once off anticoagulation, would need to be on ASA and require f /u echo periodically for evaluation. Acute Kidney Injury-resolved. Hypokalemia-replaced. hypomagnesemia- improved. -- likely secondary to cardiogenic shock -HD was discontinued. - s/p vas-cath removal- nephrology has signed off. Hyperphosphatemia-resolved. protein calorie malnutrition- severe ileus-resolved. -bar finish operator following; recommended alternative form of nutrition - PEG was discussed with the patient which he again declined- he states that his appetite is better now -evaluated by General surgery and GI . Large Cell B-cell lymphoma leukopenia Pulmonary Embolism anemia of chronic disease -- hematology/oncology following Dr. Connelly- - received chemo CHOP regimen. -plan for EPOCH chemotherapy June 08- as inpatient. - continue neupogen till resolution of leukopenia. -transfused with PRBC- H/H has improved- will monitor. -heparin was discontinued- continue Coumadin- PT/INR monitoring. INR 2.6 yesterday C. difficile colitis --finished the course of Vanco and Flagyl- continue PT. DVT Prophylaxis:: coumadin Discharge Planning patient is medicaid pending; no mauro bed available at [place] planning to rehab in progress but the patient might need to stay in house till the next session of his chemo. Problem Qualifiers (1) Acute pancreatitis: Qualified Code: K85.20 - Alcohol-induced acute pancreatitis, unspecified complication status Cristina Chapman MD May 30, 2017 08:25
[2017-05-30] MEDS: SODIUM CHLORIDE 0.9% FLUSH 10 ML FLUSH IV FLUSH PRN (09:41)
[2017-05-30] MEDS: PANTOPRAZOLE SODIUM 40 MG VIAL IV PUSH SCH (09:41)
[2017-05-30] MEDS: NIFEdipine 90 MG SUSTAINED RELEASE TAB PO SCH (09:42)
[2017-05-30] MEDS: MAGNESIUM OXIDE 400 MG TAB PO SCH ×2 (09:42→20:28)
[2017-05-30] MEDS: ALLOPURINOL 300 MG TAB PO SCH (09:42)
[2017-05-30] MEDS: CHLORHEXIDINE 0.12% (ORAL KIT) 15 ML CUP MT SCH ×2 (09:43→19:32)
--- NOTE | 2017-05-30 11:55 | PD.ONC.PN ---
Subjective Subjective Remarks Afebrile overnight. Patient resting in bed in nad. Ate breakfast this morning. Objective Data Date Time Temp Pulse Resp B/P Pulse Ox O2 Delivery O2 Flow Rate FiO2 05/30/17 08:00 98.6 80 16 121/75 97 05/30/17 04:00 97.0 60 18 126/66 96 05/30/17 00:05 76 05/30/17 00:00 97.0 103 18 134/73 98 05/29/17 20:00 97.7 66 17 118/75 94 05/29/17 16:00 98.0 55 18 115/64 100 05/29/17 12:25 81 05/29/17 12:00 98.2 78 18 111/64 100 Result Diagram: 05/29/17 0605/29/17 0600 Administered Medications Medications (Trade) Dose Ordered Sig/Shyla Route PRN Reason Start Time Stop Time Status Last Admin Dose Admin Sodium Chloride (NS Flush) 2 ml UNSCH PRN IV FLUSH FLUSH AFTER USING IV ACCESS 04/18/17 17:30 05/30/17 09:41 Hydralazine HCl (Apresoline Inj) 10 mg Q6HR PRN IV PUSH SBP>160, DBP>90 04/21/17 17:00 04/27/17 10:15 Nifedipine (Procardia Xl) 90 mg DAILY PO 04/28/17 09:00 05/30/17 09:42 Clonidine (Catapres) 0.1 mg Q6H PRN PO SBP>160, DBP>90 04/27/17 15:00 04/29/17 08:07 Ondansetron HCl (Zofran Inj) 4 mg Q6HR PRN IV PUSH NAUSEA OR VOMITING 04/30/17 11:30 05/07/17 10:06 Promethazine HCl (Phenergan Inj) 25 mg Q6H PRN IM NAUSEA OR VOMITING 04/30/17 11:30 05/01/17 13:27 Acetaminophen/ Hydrocodone Bitart ([place] 5-325 Mg) 1 tab Q6H PRN PO PAIN SCALE 1 TO 10 04/30/17 11:30 05/12/17 02:48 Chlorhexidine Gluconate 15 ml 15 ml BID@08,20 MT 05/02/17 20:00 05/29/17 11:30 Fentanyl Citrate 250 ml @ 0 mls/hr TITRATE IV 05/02/17 10:00 05/10/17 05:36 Propofol (Diprivan 1000 Mg/100ml Inj) 100 ml @ 0 mls/hr TITRATE IV 05/02/17 10:00 05/10/17 06:54 Miscellaneous Information Patient in critical care unit? Ass... Q361D .XX 05/02/17 17:15 05/02/17 17:30 Pantoprazole Sodium (Protonix Inj) 40 mg DAILY IV PUSH 05/07/17 12:00 05/30/17 09:41 Artificial Tears 1 applic 1 applic Q8H EACH EYE 05/07/17 18:00 05/29/17 17:24 Sodium Chloride 1,000 ml @ 0 mls/hr TITRATE PRN IV WITH DIALYSIS 05/07/17 18:00 05/22/17 12:08 Sodium Chloride (NS 1000 ml Inj) 1,000 ml @ 200 mls/hr Q5H PRN IV WITH DIALYSIS 05/07/17 18:00 05/25/17 10:29 Sodium Chloride (NS Flush) 5 ml UNSCH PRN IV FLUSH WITH DIALYSIS 05/07/17 18:00 05/25/17 03:50 Heparin Sodium (Porcine) (Heparin Inj) Dwell Heparin to f... UNSCH PRN OTHER WITH DIALYSIS 05/07/17 18:00 05/25/17 10:31 Gentamicin Sulfate (Gentamicin (Dialysis) Inj) 10 mg UNSCH PRN OTHER WITH DIALYSIS 05/07/17 18:00 05/25/17 10:29 Dronabinol (Marinol) 5 mg BID@11,16 PO 05/14/17 16:00 05/29/17 17:24 Sodium Chloride (NS Flush) UNSCH PRN IVF SEE PROTOCOL 05/15/17 16:00 05/25/17 03:51 Epoetin Oleksandr (Epogen Inj) 10,000 units UNSCH PRN IV WITH DIALYSIS 05/21/17 18:30 05/25/17 10:30 Warfarin Sodium (Coumadin) 4 mg DAILY@16 PO 05/23/17 16:00 05/29/17 17:24 Sodium Chloride 5 ml 5 ml UNSCH PRN IV FLUSH SEE PROTOCOL TABLE 05/24/17 06:45 05/25/17 03:51 Filgrastim/ Dextrose (Neupogen Inj/ D5W Inj) 25 ml @ 100 mls/hr DAILY@14 IV 05/26/17 15:00 05/29/17 15:51 Allopurinol (Zyloprim) 300 mg DAILY PO 05/28/17 09:00 05/30/17 09:42 Magnesium Oxide (Mag-Ox) 400 mg Q12HR PO 05/28/17 09:00 05/30/17 09:42 Objective Remarks GENERAL: Middle aged male sitting up in bed in nad. SKIN: Warm and dry. HEAD: Normocephalic. EYES: no injection or drainage. NECK: Supple, trachea midline. CARDIOVASCULAR: Regular rate and rhythm RESPIRATORY: Breath sounds equal bilaterally. No accessory muscle use. GASTROINTESTINAL: Abdomen soft, non-tender, nondistended. EXTREMITIES: No cyanosis NEUROLOGICAL: awake and alert, normal speech. moving all extremities. Assessment/Plan Problem List: (1) Non-Hodgkin lymphoma Status: Acute Plan: --Has aggressive triple hit lymphoma. --Received Rituxan x1. --Neck adenopathy relatively stable. --05/18-->CHOP chemotherapy -- Will likely receive EPOCH chemotherapy on 06/08. (2) Pulmonary emboli Status: Acute Plan: --on coumadin --CTA showed large PE --s/p tpa therapy on 05.02 (3) Normocytic anemia Status: Acute Plan: --multifactorial due to chronic disease, renal failure --monitor and transfuse as needed Assessment 47y/o male admitted with pancreatitis, found to have NHL. Plan 1. Continue Neupogen 2. clear for discharge to rehab 3. check CBC today Attending Statement The exam, history, and the medical decision-making described in the above note were completed with the assistance of the mid-level provider. I reviewed and agree with the findings presented. I attest that I had a [id number] encounter with the patient on the same day, and personally performed and documented my assessment and findings in the medical record. Problem Qualifiers (1) Non-Hodgkin lymphoma: Brenda Platt May 30, 2017 11:55 Kuldip Burris MD May 30, 2017 18:24
[2017-05-30] MEDS: DRONABINOL 5 MG CAP PO SCH ×2 (12:02→16:30)
[2017-05-30 13:04] LABS: HEMATOCRIT 31.6 % (39.0-51.0); MEAN CELL VOLUME 89.3 FL (80.0-100.0); MEAN CORPUSCULAR HGB CONC 33.6 % (32.0-36.0); PLATELET COUNT 148 TH/MM3 (150-450); RED BLOOD COUNT 3.54 MIL/MM3 (4.50-5.90); RED CELL DISTRIBUTION WIDTH 17.1 % (11.6-17.2); WHITE BLOOD COUNT 3.6 TH/MM3 (4.0-11.0)
[2017-05-30 13:06] LABS: HEMO FLAGS AUTO DIFF
[2017-05-30 13:07] LABS: INTERNATIONAL NORMALIZED RATIO 2.4 RATIO; PROTHROMBIN TIME - PATIENT 28.1 SEC (9.8-11.6)
[2017-05-30 13:32] LABS: MAGNESIUM 1.2 MG/DL (1.5-2.5); POTASSIUM 3.7 MEQ/L (3.5-5.1)
[2017-05-30 13:54] LABS: BANDS 3 % (0-6); BASOPHILS 1 % (0-2); EOSINOPHILS 1 % (0-4); NEUTROPHIL # MANUAL DIFF 2.1 TH/MM3 (1.8-7.7); POLYS (SEG NEUTROPHILS) 54 % (16-70); WBC DIFF SAMPLE 100
[2017-05-30 13:55] LABS: PLATELET ESTIMATE SMEAR LOW (NORMAL); PLATELET MORPHOLOGY NORMAL (NORMAL); SCAN/DIFF FINAL DIFF MANUAL
[2017-05-30] MEDS: FILGRASTIM INJ 300 MCG in DEXTROSE 5% IN WATER INJ 24 ML IV SCH ×2 (14:33)
[2017-05-30] MEDS: WARFARIN SOD 4 MG TAB PO SCH (16:30)
[2017-05-31] VITALS (7 sets, daily range): BP systolic 106–132; BP diastolic 64–82; PULSE 51–82; RESP 17–18; TEMP 97.4–98.2; O2SAT 97–99
[2017-05-31] MEDS: ARTIFICIAL TEARS OPTH OINT 3.5 APPLIC/3.5 GM TUBO EACH EYE SCH ×3 (01:57→17:49)
[2017-05-31 05:36] LABS: AUTOMATED NEUTROPHIL # 7.4 TH/MM3 (1.8-7.7); BASOPHIL # 0.1 TH/MM3 (0-0.2); BASOPHIL % 0.7 % (0.0-2.0); EOSINOPHIL % 0.2 % (0.0-4.0); HEMATOCRIT 33.6 % (39.0-51.0); LYMPH % 9.7 % (9.0-44.0); LYMPHOCYTE # 0.9 TH/MM3 (1.0-4.8); MEAN CELL VOLUME 89.6 FL (80.0-100.0); MEAN CORPUSCULAR HEMOGLOBIN 29.7 PG (27.0-34.0); MEAN CORPUSCULAR HGB CONC 33.1 % (32.0-36.0); MONO % 9.4 % (0.0-8.0); PLATELET COUNT 185 TH/MM3 (150-450); RED BLOOD COUNT 3.75 MIL/MM3 (4.50-5.90); RED CELL DISTRIBUTION WIDTH 17.1 % (11.6-17.2); WHITE BLOOD COUNT 9.2 TH/MM3 (4.0-11.0)
[2017-05-31 05:40] LABS: INTERNATIONAL NORMALIZED RATIO 2.6 RATIO; PROTHROMBIN TIME - PATIENT 30.3 SEC (9.8-11.6)
[2017-05-31 05:50] LABS: HEMO FLAGS AUTO DIFF
[2017-05-31 06:43] LABS: BICARBONATE 22.6 MEQ/L (21.0-32.0); MAGNESIUM 1.2 MG/DL (1.5-2.5); POTASSIUM 3.3 MEQ/L (3.5-5.1)
[2017-05-31 06:57] LABS: CALCIUM-PROTEIN CORRECTED 8.3 MG/DL (8.5-10.1)
[2017-05-31 07:27] LABS: BANDS 15 % (0-6); DOHLE BODIES PRESENT (NONE SEEN); PLATELET ESTIMATE SMEAR NORMAL (NORMAL); PLATELET MORPHOLOGY NORMAL (NORMAL); POLYS (SEG NEUTROPHILS) 61 % (16-70); SCAN/DIFF FINAL DIFF MANUAL; TOXIC GRANULATION 1+ (NORMAL); WBC DIFF SAMPLE 100
[2017-05-31] MEDS: ALLOPURINOL 300 MG TAB PO SCH (07:53)
[2017-05-31] MEDS: SODIUM CHLORIDE 0.9% FLUSH 10 ML FLUSH IV FLUSH PRN (07:53)
[2017-05-31] MEDS: MAGNESIUM OXIDE 400 MG TAB PO SCH ×2 (07:53→20:14)
[2017-05-31] MEDS: PANTOPRAZOLE SODIUM 40 MG VIAL IV PUSH SCH (07:53)
[2017-05-31] MEDS: NIFEdipine 90 MG SUSTAINED RELEASE TAB PO SCH (07:54)
[2017-05-31] MEDS: CHLORHEXIDINE 0.12% (ORAL KIT) 15 ML CUP MT SCH ×2 (07:54→19:15)
[2017-05-31] MEDS: DRONABINOL 5 MG CAP PO SCH ×2 (11:00→16:23)
[2017-05-31] MEDS ORDERED: POTASSIUM CHLORIDE 20 MEQ CONTROLLED RELEASE TAB PO ONE (12:13)
[2017-05-31] MEDS ORDERED: MAGNESIUM SULFATE 1 GM PREMIX 200 ML ONE (12:14)
[2017-05-31] MEDS: FILGRASTIM INJ 300 MCG in DEXTROSE 5% IN WATER INJ 24 ML IV SCH ×2 (12:50)
--- NOTE | 2017-05-31 13:35 | HHI.PR ---
Subjective Remarks Pt has no complaints. was asleep when I came in earlier this morning, wakes up easily but only answers w yes or no, then wants to go back to sleep. shakes his head no when I ask him if he has pain, SOB/N/V Pt does tell me that he has been eating Objective Vitals Vital Signs Date Time Temp Pulse Resp B/P (MAP) Pulse Ox O2 Delivery O2 Flow Rate FiO2 05/31/17 08:01 73 05/31/17 04:00 78 05/31/17 04:00 98.0 71 18 132/81 (98) 98 05/31/17 00:00 97.7 69 18 118/77 (91) 98 05/31/17 00:00 79 05/30/17 20:00 78 05/30/17 20:00 97.3 56 18 130/89 (103) 96 05/30/17 16:00 98.1 62 14 118/61 (80) 97 I/O 05/30/17 05/30/17 05/30/17 05/31/17 05/31/17 05/31/17 07:00 15:00 23:00 07:00 15:00 23:00 Intake Total 960 ml 240 ml Output Total 425 ml 600 ml Balance 535 ml -360 ml Intake Oral 960 ml 240 ml Output Urine Total 425 ml 600 ml # Bowel Movements 0 0 0 Result Diagram: 05/31/17 0512 05/31/17 0512 Imaging Last Impressions Chest X-Ray 05/21/17 0600 Signed Impressions: Service Date/Time: May 06:05 - CONCLUSION: Bibasilar opacities the majority represent effusion appreciated without posterior left lower lobe retrocardiac density consolidation atelectasis versus infiltrate there was underlying in the right medial base suggesting air fluid level the possibility of cavitary lesion with air-fluid level cannot be excluded. There is persistent mediastinal mass widening. Stanford Mcdonough MD Abdomen X-Ray 05/15/17 0600 Draft Impressions: Service Date/Time: Monday, May 15, 2017 04:29 - CONCLUSION: Findings of mild small bowel ileus. There has been no significant change when compared to the prior exam. Jadon Carroll MD Central Venous Line 05/15/17 0000 Signed Impressions: Service Date/Time: Monday, May 15, 2017 00:00 - CONCLUSION: Uncomplicated catheter removal. Bryon Calero Jr., MD Catheter Placement X-Ray 05/15/17 0000 Signed Impressions: Service Date/Time: Monday, May 15, 2017 15:13 - CONCLUSION: Mild narrowing involving the brachiocephalic vein near its junction with the SVC. This is not flow limiting. A left-sided vas catheter was placed. Bryon Calero Jr., MD Abdomen/Pelvis CT 05/09/17 0000 Signed Impressions: Service Date/Time: Tuesday, May 09, 2017 21:16 - CONCLUSION: 1. Diffusely distended loops of small bowel down to the cecum suggest ileus. 2. Evidence of mesenteric and retroperitoneal adenopathy. 3. Large bilateral pleural effusions , moderate amount of free fluid in the pelvis and mild ascites in the upper abdomen. 4. Abnormal appearance to the parenchyma of the right kidney with patchy areas of hyperdensity in a mosaic pattern. This of uncertain significance. The patient had iodinated contrast for a CT pulmonary angiogram 7 days ago; this could potentially represent residual parenchymal contrast which would be nonspecific, but raises the possibility of either obstruction or renal infarctions. Bryon Evans MD Renal Ultrasound 05/05/17 0000 Signed Impressions: Service Date/Time: Friday, May 05, 2017 20:06 - CONCLUSION: 1. Kidneys are borderline echogenic which can be seen with medical renal disease. 2. No evidence of hydronephrosis. 3. Abdominal ascites. 4. Multiple dilated bowel loops. 5. Bilateral pleural effusions. Tray Patel MD Head CT 05/03/17 0000 Signed Impressions: Service Date/Time: Wednesday, May 03, 2017 17:22 - CONCLUSION: No acute intracranial disease. No hemorrhage seen. Tray Patel MD CT Angiography 05/02/17 0000 Signed Impressions: Service Date/Time: Tuesday, May 02, 2017 11:10 - CONCLUSION: 1. There is pulmonary embolus in the right pulmonary artery, right upper lobe and lower lobe branches. 2. Resorption of previously seen gas in the left axilla with fluid collection at this site with postprocedural change and possibly postprocedural hemorrhage not significantly changed in size. 3. Interval development of right lung airspace process may represent postobstructive pneumonia and there is mucus within the trachea not present yesterday. 4. Right pleural effusion is smaller and left pleural effusion is larger. 5. No change in bulky adenopathy. Leonor Chavez MD Upper Extremity Ultrasound 04/30/17 0000 Signed Impressions: Service Date/Time: April 12:25 - CONCLUSION: There some superficial thrombosis of a vein in the forearm. The deep venous system is patent. Large fluid collection left axilla. Significant soft tissue edema throughout the upper arm. Rinku Hillman MD Thoracentesis Ultrasound 04/30/17 0000 Signed Impressions: Service Date/Time: April 12:14 - CONCLUSION: Uncomplicated ultrasound guided thoracentesis. Tray Patel MD Port Line Insertion 04/27/17 Signed Impressions: Service Date/Time: Thursday, April 27, 2017 14:56 - CONCLUSION: 1. Bulky bilateral lower cervical lymphadenopathy. 2. Uncomplicated ultrasound and fluoroscopic guided implanted central venous port catheter placement as described in detail above. An 8 [employer] port was placed. Liang Peralta MD Bone Biopsy CT 04/27/17 0000 Signed Impressions: Service Date/Time: Thursday, April 27, 2017 16:22 - CONCLUSION: 1. Uncomplicated CT guided bone marrow aspirate. 2. Uncomplicated CT guided bone marrow biopsy. Tray Patel MD Chest CT 04/25/17 0000 Signed Impressions: Service Date/Time: Wednesday, April 26, 2017 19:00 - CONCLUSION: The right pleural effusion is slightly larger on the left side has not changed. Extensive bulky adenopathy as before and malignancies such as lymphoma is suspected. Leonor Chavez MD Gall Bladder Ultrasound 04/22/17 0000 Signed Impressions: Service Date/Time: Saturday, April 22, 2017 07:35 - CONCLUSION: Small liver with focal abdomen only incompletely evaluated. Large right pleural effusion. effusion. Kirk Briceño MD FACR Abdomen CT 04/20/17 0000 Signed Impressions: Service Date/Time: Thursday, April 20, 2017 19:40 - CONCLUSION: Limited exam because of lack of intravenous contrast. Lymphoma is suspected. Pathological diagnosis could be obtained with ultrasound biopsy of the cervical, axillary or inguinal adenopathy. Kirk Briceño MD FACR Objective Remarks GENERAL: laying in bed, appears comfortable. Skin: very dry EYES: EOMI CARDIOVASCULAR: Regular rate and regular rhythm without murmurs RESPIRATORY: Clear to auscultation. Breath sounds equal bilaterally. No wheezes GASTROINTESTINAL: Abdomen soft, non-tender, nondistended. MUSCULOSKELETAL: Extremities without edema. moves all extremities. NEURO: asleep but easily arousable, however he is quiet and only answers w shaking head w yes or no. Procedures 04/[address] excision biopsy 04/27- port placement 05/02-TPA 05/06-left IJ Vas-Cath placement endotracheal intubation A/P Problem List: (1) Acute pancreatitis ICD Code: K85.90 - Acute pancreatitis without necrosis or infection, unspecified Status: Resolved (2) Transaminitis ICD Code: R74.0 - Nonspecific elevation of levels of transaminase and lactic acid dehydrogenase [LDH] Status: Acute (3) ALDO (acute kidney injury) ICD Code: N17.9 - Acute kidney failure, unspecified Status: Acute (4) Pleural effusion ICD Code: J90 - Pleural effusion, not elsewhere classified Status: Acute Assessment and Plan Acute Hypoxic Respiratory Failure-resolved- stable on RA Acute Submassive Pulmonary Embolism Right Heart Dysfunction Global severe left ventricular systolic dysfunction Cardiogenic Shock-resolved -- 2d echo 05/02: EF 30-35%, RV dysfunction with dilation --Repeat ECHO limited study scheduled on 05/09-RV function appears to have normalized, question of interatrial shunt for which cardiology consulted- cards recommended that once off anticoagulation, would need to be on ASA and require f /u echo periodically for evaluation. Acute Kidney Injury-resolved. Hypokalemia-replaced. hypomagnesemia- improved. -- likely secondary to cardiogenic shock -HD was discontinued. - s/p vas-cath removal- nephrology has signed off. Hyperphosphatemia-resolved. protein calorie malnutrition- severe ileus-resolved. -jewel bearing facer following; recommended alternative form of nutrition - PEG was discussed with the patient which he again declined- he states that his appetite is better now -evaluated by General surgery and GI . Large Cell B-cell lymphoma leukopenia Pulmonary Embolism anemia of chronic disease -- hematology/oncology following Dr. Connelly- - received chemo CHOP regimen. -plan for EPOCH chemotherapy June 08- as inpatient. - continue neupogen till resolution of leukopenia. -transfused with PRBC- H/H has improved- will monitor. -heparin was discontinued- continue Coumadin- PT/INR monitoring. INR 2.6 today C. difficile colitis --finished the course of Vanco and Flagyl- continue PT. DVT Prophylaxis: coumadin Discharge Planning patient is medicaid pending; no mauro bed available at [facility]. dc planning to rehab in progress but the patient might need to stay in house till the next session of his chemo. Problem Qualifiers (1) Acute pancreatitis: Cristina Chapman MD May 31, 2017 13:35
[2017-05-31] MEDS ORDERED: EUCERIN CREAM 120 GM JAR TOPICAL PRN (14:00)
[2017-05-31 15:23] LABS: BICARBONATE 22.8 MEQ/L (21.0-32.0); POTASSIUM 3.3 MEQ/L (3.5-5.1)
[2017-05-31 15:45] LABS: CALCIUM-PROTEIN CORRECTED 7.8 MG/DL (8.5-10.1)
[2017-05-31] MEDS: WARFARIN SOD 4 MG TAB PO SCH (16:23)
[2017-06-01] VITALS (7 sets, daily range): BP systolic 109–137; BP diastolic 66–83; PULSE 52–84; RESP 16–18; TEMP 96.8–97.8; O2SAT 96–99
[2017-06-01] MEDS: ARTIFICIAL TEARS OPTH OINT 3.5 APPLIC/3.5 GM TUBO EACH EYE SCH ×3 (02:00→18:21)
[2017-06-01 05:06] LABS: AUTOMATED NEUTROPHIL # 16.6 TH/MM3 (1.8-7.7); BASOPHIL # 0.1 TH/MM3 (0-0.2); BASOPHIL % 0.3 % (0.0-2.0); EOSINOPHIL % 0.2 % (0.0-4.0); HEMATOCRIT 33.6 % (39.0-51.0); LYMPH % 5.4 % (9.0-44.0); MEAN CELL VOLUME 89.7 FL (80.0-100.0); MEAN CORPUSCULAR HEMOGLOBIN 29.7 PG (27.0-34.0); MEAN CORPUSCULAR HGB CONC 33.1 % (32.0-36.0); MONO % 4.7 % (0.0-8.0); NEUT % 89.4 % (16.0-70.0); PLATELET COUNT 224 TH/MM3 (150-450); RED BLOOD COUNT 3.75 MIL/MM3 (4.50-5.90); RED CELL DISTRIBUTION WIDTH 17.3 % (11.6-17.2); WHITE BLOOD COUNT 18.6 TH/MM3 (4.0-11.0)
[2017-06-01 05:10] LABS: HEMO FLAGS AUTO DIFF
[2017-06-01 05:29] LABS: BICARBONATE 20.9 MEQ/L (21.0-32.0); MAGNESIUM 1.6 MG/DL (1.5-2.5); POTASSIUM 4.1 MEQ/L (3.5-5.1)
[2017-06-01 05:43] LABS: CALCIUM-PROTEIN CORRECTED 8.4 MG/DL (8.5-10.1)
[2017-06-01 06:49] LABS: BANDS 30 % (0-6); NEUTROPHIL # MANUAL DIFF 17.9 TH/MM3 (1.8-7.7); POLYS (SEG NEUTROPHILS) 66 % (16-70); WBC DIFF SAMPLE 100
[2017-06-01 06:50] LABS: OVALOCYTES 1+ (NORMAL); PLATELET ESTIMATE SMEAR NORMAL (NORMAL); TOXIC VACUOLATION PRESENT (NONE SEEN)
[2017-06-01 06:51] LABS: PLATELET MORPHOLOGY NORMAL (NORMAL); SCAN/DIFF FINAL DIFF MANUAL
[2017-06-01] MEDS: CHLORHEXIDINE 0.12% (ORAL KIT) 15 ML CUP MT SCH ×2 (08:00→20:00)
--- NOTE | 2017-06-01 08:01 | PD.ONC.PN ---
Subjective Subjective Remarks Feeling stronger, can ambulate to bathroom. No abdominal pain. Objective Data Date Time Temp Pulse Resp B/P (MAP) Pulse Ox O2 Delivery O2 Flow Rate FiO2 06/01/17 04:00 79 06/01/17 04:00 96.8 69 18 110/70 (83) 97 06/01/17 00:00 97.8 63 16 114/69 (84) 97 06/01/17 00:00 80 05/31/17 20:00 82 05/31/17 20:00 97.4 79 17 106/64 (78) 97 05/31/17 16:00 97.4 51 18 113/82 (92) 99 05/31/17 12:00 98.2 59 18 122/77 (92) 99 05/31/17 08:01 73 05/31/17 08:00 98.2 57 18 118/80 (93) 99 06/01/17 06/01/17 06/01/17 07:00 15:00 23:00 Intake Total 60 ml Output Total 600 ml Balance -540 ml Result Diagram: 06/01/17 0430 06/01/17 0430 Laboratory Results Laboratory Tests Test 05/31/17 14:23 06/01/17 04:30 Blood Urea Nitrogen 4 MG/DL 4 MG/DL Creatinine 0.81 MG/DL 0.68 MG/DL Random Glucose 95 MG/DL 76 MG/DL Total Protein 5.3 GM/DL 5.3 GM/DL Calcium Level 6.9 MG/DL 7.4 MG/DL Sodium Level 140 MEQ/L 141 MEQ/L Potassium Level 3.3 MEQ/L 4.1 MEQ/L Chloride Level 109 MEQ/L 111 MEQ/L Carbon Dioxide Level 22.8 MEQ/L 20.9 MEQ/L Anion Gap 8 MEQ/L 9 MEQ/L Estimat Glomerular Filtration Rate 123 ML/MIN 150 ML/MIN Protein Corrected Calcium 7.8 MG/DL 8.4 MG/DL White Blood Count 18.6 TH/MM3 Red Blood Count 3.75 MIL/MM3 Hemoglobin 11.1 GM/DL Hematocrit 33.6 % Mean Corpuscular Volume 89.7 FL Mean Corpuscular Hemoglobin 29.7 PG Mean Corpuscular Hemoglobin Concent 33.1 % Red Cell Distribution Width 17.3 % Platelet Count 224 TH/MM3 Mean Platelet Volume 8.0 FL Neutrophils (%) (Auto) 89.4 % Lymphocytes (%) (Auto) 5.4 % Monocytes (%) (Auto) 4.7 % Eosinophils (%) (Auto) 0.2 % Basophils (%) (Auto) 0.3 % Neutrophils # (Auto) 16.6 TH/MM3 Lymphocytes # (Auto) 1.0 TH/MM3 Monocytes # (Auto) 0.9 TH/MM3 Eosinophils # (Auto) 0.0 TH/MM3 Basophils # (Auto) 0.1 TH/MM3 CBC Comment AUTO DIFF Differential Total Cells Counted 100 Neutrophils % (Manual) 66 % Band Neutrophils % 30 % Lymphocytes % 2 % Monocytes % 2 % Neutrophils # (Manual) 17.9 TH/MM3 Differential Comment FINAL DIFF MANUAL Toxic Vacuolation PRESENT Platelet Estimate NORMAL Platelet Morphology Comment NORMAL Ovalocytes 1+ Phosphorus Level 1.9 MG/DL Magnesium Level 1.6 MG/DL Administered Medications Medications (Trade) Dose Ordered Sig/Shyla Route PRN Reason Start Time Stop Time Status Last Admin Dose Admin Sodium Chloride (NS Flush) 2 ml UNSCH PRN IV FLUSH FLUSH AFTER USING IV ACCESS 04/18/17 17:30 05/31/17 07:53 Hydralazine HCl (Apresoline Inj) 10 mg Q6HR PRN IV PUSH SBP>160, DBP>90 04/21/17 17:00 04/27/17 10:15 Nifedipine (Procardia Xl) 90 mg DAILY PO 04/28/17 09:00 05/31/17 07:54 Clonidine (Catapres) 0.1 mg Q6H PRN PO SBP>160, DBP>90 04/27/17 15:00 04/29/17 08:07 Ondansetron HCl (Zofran Inj) 4 mg Q6HR PRN IV PUSH NAUSEA OR VOMITING 04/30/17 11:30 05/07/17 10:06 Promethazine HCl (Phenergan Inj) 25 mg Q6H PRN IM NAUSEA OR VOMITING 04/30/17 11:30 05/01/17 13:27 Acetaminophen/ Hydrocodone Bitart ([place] 5-325 Mg) 1 tab Q6H PRN PO PAIN SCALE 1 TO 10 04/30/17 11:30 05/12/17 02:48 Chlorhexidine Gluconate (Peridex 0.12% Liq) 15 ml BID@08,20 MT 05/02/17 20:00 05/29/17 11:30 Albuterol/ Ipratropium (Duoneb Neb) 1 ampule Q2HR NEB PRN INH WHEEZING 05/02/17 10:00 05/08/17 08:08 Fentanyl Citrate 250 ml @ 0 mls/hr TITRATE IV 05/02/17 10:00 05/10/17 05:36 Propofol 100 ml @ 0 mls/hr TITRATE IV 05/02/17 10:00 05/10/17 06:54 Miscellaneous Information Patient in critical care unit? Ass... Q361D .XX 05/02/17 17:15 05/02/17 17:30 Pantoprazole Sodium (Protonix Inj) 40 mg DAILY IV PUSH 05/07/17 12:00 05/31/17 07:53 Artificial Tears (Lacrilube Opht Oint) 1 applic Q8H EACH EYE 05/07/17 18:00 05/31/17 17:49 Sodium Chloride 1,000 ml @ 0 mls/hr TITRATE PRN IV WITH DIALYSIS 05/07/17 18:00 05/22/17 12:08 Sodium Chloride 1,000 ml @ 200 mls/hr Q5H PRN IV WITH DIALYSIS 05/07/17 18:00 05/25/17 10:29 Sodium Chloride (NS Flush) 5 ml UNSCH PRN IV FLUSH WITH DIALYSIS 05/07/17 18:00 05/25/17 03:50 Heparin Sodium (Porcine) (Heparin Inj) Dwell Heparin to f... UNSCH PRN OTHER WITH DIALYSIS 05/07/17 18:00 05/25/17 10:31 Gentamicin Sulfate (Gentamicin (Dialysis) Inj) 10 mg UNSCH PRN OTHER WITH DIALYSIS 05/07/17 18:00 05/25/17 10:29 Dronabinol (Marinol) 5 mg BID@11,16 PO 05/14/17 16:00 05/31/17 16:23 Sodium Chloride (NS Flush) UNSCH PRN IVF SEE PROTOCOL 05/15/17 16:00 05/25/17 03:51 Epoetin Oleksandr (Epogen Inj) 10,000 units UNSCH PRN IV WITH DIALYSIS 05/21/17 18:30 05/25/17 10:30 Warfarin Sodium (Coumadin) 4 mg DAILY@16 PO 05/23/17 16:00 05/31/17 16:23 Sodium Chloride (NS Flush) 5 ml UNSCH PRN IV FLUSH SEE PROTOCOL TABLE 05/24/17 06:45 05/25/17 03:51 Allopurinol (Zyloprim) 300 mg DAILY PO 05/28/17 09:00 05/31/17 07:53 Magnesium Oxide (Mag-Ox) 400 mg Q12HR PO 05/28/17 09:00 05/31/17 07:53 Multi-Ingredient Ointment (Eucerin Cream) 1 applic Q6H PRN TOPICAL DRY SKIN 05/31/17 14:00 05/31/17 17:46 Objective Remarks GENERAL: Well-nourished, well-developed patient. Weak. SKIN: Warm and dry. HEAD: Normocephalic. EYES: No scleral icterus. No injection or drainage. NECK: Supple, trachea midline. No JVD. Right supraclav LN more prominent. LYMPHATIC: Right axillary mass more prominent and more firm. CARDIOVASCULAR: Regular rate and rhythm without murmurs. RESPIRATORY: Breath sounds equal bilaterally. No accessory muscle use. GASTROINTESTINAL: Abdomen soft, non-tender, nondistended. EXTREMITIES: No cyanosis, or edema. MUSCULOSKELETAL: Adequate muscle tone. NEUROLOGICAL: No obvious focal deficit. Awake, alert, and oriented x3. PSYCHIATRIC: Appropriate mood and affect; insight and judgment normal. 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 --Received Rituxan x1. --Neck adenopathy relatively stable. --05/18-->CHOP chemotherapy --The neck and axillary mass are more prominent worrisome for progression of disease -- Plan to give him Rituxan and EPOCH chemotherapy on 06/08. (2) Pulmonary emboli ICD Codes: I26.99 - Other pulmonary embolism without acute cor pulmonale Status: Acute Plan: --on coumadin --CTA showed large PE --s/p tpa therapy on 05.02 (3) Normocytic anemia ICD Codes: D64.9 - Anemia, unspecified Status: Acute Plan: --multifactorial due to chronic disease, renal failure --monitor and transfuse as needed (4) ALDO (acute kidney injury) ICD Codes: N17.9 - Acute kidney failure, unspecified Status: Resolved Plan: --creatinine significantly improved today. Assessment 47y/o male admitted with pancreatitis, found to have NHL. Have some response to R_CHOP but the masses seems more prominent again worrisome for progression of disease. Plan 1. Monitor labs 2. Plan chemo next Thursday in patient. Problem Qualifiers (1) Non-Hodgkin lymphoma: Ruslan Connelly MD Jun 01, 2017 08:01
--- NOTE | 2017-06-01 09:21 | HHI.PR ---
Subjective Remarks Pt has no complaints. Doesn't speak much but shakes yes or no to my questions. Denies any pain, SOB, n/v. confirms he is eating Objective Vitals Vital Signs Date Time Temp Pulse Resp B/P (MAP) Pulse Ox O2 Delivery O2 Flow Rate FiO2 06/01/17 04:00 79 06/01/17 04:00 96.8 69 18 110/70 (83) 97 06/01/17 00:00 97.8 63 16 114/69 (84) 97 06/01/17 00:00 80 05/31/17 20:00 82 05/31/17 20:00 97.4 79 17 106/64 (78) 97 05/31/17 16:00 97.4 51 18 113/82 (92) 99 05/31/17 12:00 98.2 59 18 122/77 (92) 99 I/O 05/31/17 05/31/17 05/31/17 06/01/17 06/01/17 06/01/17 07:00 15:00 23:00 07:00 15:00 23:00 Intake Total 240 ml 1680 ml 60 ml Output Total 600 ml 600 ml Balance -360 ml 1680 ml -540 ml Intake Oral 240 ml 1680 ml 60 ml Output Urine Total 600 ml 600 ml # Voids 6 # Bowel Movements 0 1 0 Result Diagram: 06/01/17 0430 06/01/17 0430 Imaging Last Impressions Chest X-Ray 05/21/17 06 Signed Impressions: Service Date/Time: May 06:05 - CONCLUSION: Bibasilar opacities the majority represent effusion appreciated without posterior left lower lobe retrocardiac density consolidation atelectasis versus infiltrate there was underlying in the right medial base suggesting air fluid level the possibility of cavitary lesion with air-fluid level cannot be excluded. There is persistent mediastinal mass widening. Stanford Mcdonough MD Abdomen X-Ray 05/15/17 0600 Draft Impressions: Service Date/Time: Monday, May 15, 2017 04:29 - CONCLUSION: Findings of mild small bowel ileus. There has been no significant change when compared to the prior exam. Jadon Carroll MD Central Venous Line 05/15/17 0000 Signed Impressions: Service Date/Time: Monday, May 15, 2017 00:00 - CONCLUSION: Uncomplicated catheter removal. Bryon Calero Jr., MD Catheter Placement X-Ray 05/15/17 0000 Signed Impressions: Service Date/Time: Monday, May 15, 2017 15:13 - CONCLUSION: Mild narrowing involving the brachiocephalic vein near its junction with the SVC. This is not flow limiting. A left-sided vas catheter was placed. Bryon Calero Jr., MD Abdomen/Pelvis CT 05/09/17 0000 Signed Impressions: Service Date/Time: Tuesday, May 09, 2017 21:16 - CONCLUSION: 1. Diffusely distended loops of small bowel down to the cecum suggest ileus. 2. Evidence of mesenteric and retroperitoneal adenopathy. 3. Large bilateral pleural effusions , moderate amount of free fluid in the pelvis and mild ascites in the upper abdomen. 4. Abnormal appearance to the parenchyma of the right kidney with patchy areas of hyperdensity in a mosaic pattern. This of uncertain significance. The patient had iodinated contrast for a CT pulmonary angiogram 7 days ago; this could potentially represent residual parenchymal contrast which would be nonspecific, but raises the possibility of either obstruction or renal infarctions. Bryon Evans MD Renal Ultrasound 05/05/17 0000 Signed Impressions: Service Date/Time: Friday, May 05, 2017 20:06 - CONCLUSION: 1. Kidneys are borderline echogenic which can be seen with medical renal disease. 2. No evidence of hydronephrosis. 3. Abdominal ascites. 4. Multiple dilated bowel loops. 5. Bilateral pleural effusions. Tray Patel MD Head CT 05/03/17 0000 Signed Impressions: Service Date/Time: Wednesday, May 03, 2017 17:22 - CONCLUSION: No acute intracranial disease. No hemorrhage seen. Tray Patel MD CT Angiography 05/02/17 0000 Signed Impressions: Service Date/Time: Tuesday, May 02, 2017 11:10 - CONCLUSION: 1. There is pulmonary embolus in the right pulmonary artery, right upper lobe and lower lobe branches. 2. Resorption of previously seen gas in the left axilla with fluid collection at this site with postprocedural change and possibly postprocedural hemorrhage not significantly changed in size. 3. Interval development of right lung airspace process may represent postobstructive pneumonia and there is mucus within the trachea not present yesterday. 4. Right pleural effusion is smaller and left pleural effusion is larger. 5. No change in bulky adenopathy. Leonor Chavez MD Upper Extremity Ultrasound 04/30/17 0000 Signed Impressions: Service Date/Time: April 12:25 - CONCLUSION: There some superficial thrombosis of a vein in the forearm. The deep venous system is patent. Large fluid collection left axilla. Significant soft tissue edema throughout the upper arm. Rinku Hillman MD Thoracentesis Ultrasound 04/30/17 0000 Signed Impressions: Service Date/Time: April 12:14 - CONCLUSION: Uncomplicated ultrasound guided thoracentesis. Tray Patel MD Port Line Insertion 04/27/17 0000 Signed Impressions: Service Date/Time: Thursday, April 27, 2017 14:56 - CONCLUSION: 1. Bulky bilateral lower cervical lymphadenopathy. 2. Uncomplicated ultrasound and fluoroscopic guided implanted central venous port catheter placement as described in detail above. An 8 [employer] port was placed. Liang Peralta MD Bone Biopsy CT 04/27/17 0000 Signed Impressions: Service Date/Time: Thursday, April 27, 2017 16:22 - CONCLUSION: 1. Uncomplicated CT guided bone marrow aspirate. 2. Uncomplicated CT guided bone marrow biopsy. Tray Patel MD Chest CT 04/25/17 0000 Signed Impressions: Service Date/Time: Wednesday, April 26, 2017 19:00 - CONCLUSION: The right pleural effusion is slightly larger on the left side has not changed. Extensive bulky adenopathy as before and malignancies such as lymphoma is suspected. Leonor Chavez MD Gall Bladder Ultrasound 04/22/17 0000 Signed Impressions: Service Date/Time: Saturday, April 22, 2017 07:35 - CONCLUSION: Small liver with focal abdomen only incompletely evaluated. Large right pleural effusion. effusion. Kirk Briceño MD FACR Abdomen CT 04/20/17 0000 Signed Impressions: Service Date/Time: Thursday, April 20, 2017 19:40 - CONCLUSION: Limited exam because of lack of intravenous contrast. Lymphoma is suspected. Pathological diagnosis could be obtained with ultrasound biopsy of the cervical, axillary or inguinal adenopathy. Kirk Briceño MD FACR Objective Remarks GENERAL: laying in bed, appears comfortable. Skin: very dry but improved w eucerin EYES: EOMI CARDIOVASCULAR: Regular rate and regular rhythm without murmurs RESPIRATORY: Clear to auscultation. Breath sounds equal bilaterally. No wheezes GASTROINTESTINAL: Abdomen soft, non-tender, nondistended. MUSCULOSKELETAL: Extremities without edema. moves all extremities. NEURO: asleep but easily arousable, however he is quiet and only answers w shaking head w yes or no. Procedures 04/[address] excision biopsy 04/27- port placement 05/02-TPA 05/06-left IJ Vas-Cath placement endotracheal intubation A/P Problem List: (1) Acute pancreatitis ICD Code: K85.90 - Acute pancreatitis without necrosis or infection, unspecified Status: Resolved (2) Transaminitis ICD Code: R74.0 - Nonspecific elevation of levels of transaminase and lactic acid dehydrogenase [LDH] Status: Acute (3) ALDO (acute kidney injury) ICD Code: N17.9 - Acute kidney failure, unspecified Status: Resolved (4) Pleural effusion ICD Code: J90 - Pleural effusion, not elsewhere classified Status: Acute Assessment and Plan Medical management update 06/01/17: continue current management. pharmacy consult in place for coumadin mgt Acute Hypoxic Respiratory Failure-resolved- stable on RA Acute Submassive Pulmonary Embolism Right Heart Dysfunction Global severe left ventricular systolic dysfunction Cardiogenic Shock-resolved -- 2d echo 05/02: EF 30-35%, RV dysfunction with dilation --Repeat ECHO limited study scheduled on 05/09-RV function appears to have normalized, question of interatrial shunt for which cardiology consulted- cards recommended that once off anticoagulation, would need to be on ASA and require f /u echo periodically for evaluation. Acute Kidney Injury-resolved. Hypokalemia-replaced. hypomagnesemia- improved. -- likely secondary to cardiogenic shock -HD was discontinued. - s/p vas-cath removal- nephrology has signed off. Hyperphosphatemia-resolved. protein calorie malnutrition- severe ileus-resolved. -psychiatric security nurse following; recommended alternative form of nutrition - PEG was discussed with the patient which he again declined- he states that his appetite is better now -evaluated by General surgery and GI . Large Cell B-cell lymphoma leukopenia Pulmonary Embolism anemia of chronic disease -- hematology/oncology following Dr. Connelly- - received chemo CHOP regimen. -plan for EPOCH chemotherapy June 08- as inpatient. - continue neupogen till resolution of leukopenia. -transfused with PRBC- H/H has improved- will monitor. -heparin was discontinued- continue Coumadin- PT/INR monitoring. INR 2.6 today C. difficile colitis --finished the course of Vanco and Flagyl- continue PT. DVT Prophylaxis: coumadin Discharge Planning patient is medicaid pending; no mauro bed available at [place]. [place] planning to rehab in progress but the patient might need to stay in house till the next session of his chemo. Problem Qualifiers (1) Acute pancreatitis: Cristina Chapman MD Jun 01, 2017 09:21
[2017-06-01] MEDS: POTASSIUM PHOSPHATE/SODIUM PHOSPHATE 250 MG TAB PO SCH ×3 (10:03→20:48)
[2017-06-01] MEDS: MAGNESIUM OXIDE 400 MG TAB PO SCH ×2 (10:04→20:47)
[2017-06-01] MEDS: PANTOPRAZOLE SODIUM 40 MG VIAL IV PUSH SCH (10:04)
[2017-06-01] MEDS: ALLOPURINOL 300 MG TAB PO SCH (10:05)
[2017-06-01] MEDS: NIFEdipine 90 MG SUSTAINED RELEASE TAB PO SCH (10:05)
[2017-06-01] MEDS: DRONABINOL 5 MG CAP PO SCH ×2 (10:10→18:20)
[2017-06-01] MEDS: WARFARIN SOD 4 MG TAB PO SCH (18:21)
[2017-06-02] VITALS (9 sets, daily range): BP systolic 110–128; BP diastolic 68–82; PULSE 69–82; RESP 16–17; TEMP 97.5–98.6; O2SAT 95–98
[2017-06-02] MEDS: ARTIFICIAL TEARS OPTH OINT 3.5 APPLIC/3.5 GM TUBO EACH EYE SCH ×3 (02:00→17:41)
[2017-06-02] MEDS: POTASSIUM PHOSPHATE/SODIUM PHOSPHATE 250 MG TAB PO SCH ×3 (05:13→20:35)
[2017-06-02 05:56] LABS: INTERNATIONAL NORMALIZED RATIO 2.1 RATIO; PROTHROMBIN TIME - PATIENT 23.8 SEC (9.8-11.6)
--- NOTE | 2017-06-02 09:15 | HHI.PR ---
Subjective Remarks Pt has no complaints, confirms that he has been eating, denies any pains, SOB, nausea or vomiting. More interactive today Objective Vitals Vital Signs Date Time Temp Pulse Resp B/P (MAP) Pulse Ox O2 Delivery O2 Flow Rate FiO2 06/02/17 08:00 98.6 74 16 119/82 (94) 98 06/02/17 04:07 69 06/02/17 04:00 97.8 82 17 110/68 (82) 95 06/02/17 00:03 75 06/02/17 00:00 97.5 77 17 116/77 (90) 98 06/01/17 21:36 97.5 80 17 109/72 (84) 99 06/01/17 20:11 82 06/01/17 16:00 97.1 58 16 128/80 (96) 96 06/01/17 12:00 97.0 60 16 137/83 (101) 96 I/O 06/01/17 06/01/17 06/01/17 06/02/17 06/02/17 06/02/17 06:59 14:59 22:59 06:59 14:59 22:59 Intake Total 60 ml 360 ml Output Total 600 ml 600 ml Balance -540 ml -240 ml Intake Oral 60 ml 360 ml Output Urine Total 600 ml 600 ml # Bowel Movements 0 1 Result Diagram: 06/01/17 0430 06/01/17 0430 Imaging Last Impressions Chest X-Ray 05/21/17 06 Signed Impressions: Service Date/Time: May 06:05 - CONCLUSION: Bibasilar opacities the majority represent effusion appreciated without posterior left lower lobe retrocardiac density consolidation atelectasis versus infiltrate there was underlying in the right medial base suggesting air fluid level the possibility of cavitary lesion with air-fluid level cannot be excluded. There is persistent mediastinal mass widening. Stanford Mcdonough MD Abdomen X-Ray 05/15/17 0600 Draft Impressions: Service Date/Time: Monday, May 15, 2017 04:29 - CONCLUSION: Findings of mild small bowel ileus. There has been no significant change when compared to the prior exam. Jadon Carroll MD Central Venous Line 05/15/17 0000 Signed Impressions: Service Date/Time: Monday, May 15, 2017 00:00 - CONCLUSION: Uncomplicated catheter removal. Bryon Calero Jr., MD Catheter Placement X-Ray 05/15/17 0000 Signed Impressions: Service Date/Time: Monday, May 15, 2017 15:13 - CONCLUSION: Mild narrowing involving the brachiocephalic vein near its junction with the SVC. This is not flow limiting. A left-sided vas catheter was placed. Bryon Calero Jr., MD Abdomen/Pelvis CT 05/09/17 0000 Signed Impressions: Service Date/Time: Tuesday, May 09, 2017 21:16 - CONCLUSION: 1. Diffusely distended loops of small bowel down to the cecum suggest ileus. 2. Evidence of mesenteric and retroperitoneal adenopathy. 3. Large bilateral pleural effusions , moderate amount of free fluid in the pelvis and mild ascites in the upper abdomen. 4. Abnormal appearance to the parenchyma of the right kidney with patchy areas of hyperdensity in a mosaic pattern. This of uncertain significance. The patient had iodinated contrast for a CT pulmonary angiogram 7 days ago; this could potentially represent residual parenchymal contrast which would be nonspecific, but raises the possibility of either obstruction or renal infarctions. Bryon Evans MD Renal Ultrasound 05/05/17 0000 Signed Impressions: Service Date/Time: Friday, May 05, 2017 20:06 - CONCLUSION: 1. Kidneys are borderline echogenic which can be seen with medical renal disease. 2. No evidence of hydronephrosis. 3. Abdominal ascites. 4. Multiple dilated bowel loops. 5. Bilateral pleural effusions. Tray Patel MD Head CT 05/03/17 0000 Signed Impressions: Service Date/Time: Wednesday, May 03, 2017 17:22 - CONCLUSION: No acute intracranial disease. No hemorrhage seen. Tray Patel MD CT Angiography 05/02/17 0000 Signed Impressions: Service Date/Time: Tuesday, May 02, 2017 11:10 - CONCLUSION: 1. There is pulmonary embolus in the right pulmonary artery, right upper lobe and lower lobe branches. 2. Resorption of previously seen gas in the left axilla with fluid collection at this site with postprocedural change and possibly postprocedural hemorrhage not significantly changed in size. 3. Interval development of right lung airspace process may represent postobstructive pneumonia and there is mucus within the trachea not present yesterday. 4. Right pleural effusion is smaller and left pleural effusion is larger. 5. No change in bulky adenopathy. Leonor Chavez MD Upper Extremity Ultrasound 04/30/17 0000 Signed Impressions: Service Date/Time: April 12:25 - CONCLUSION: There some superficial thrombosis of a vein in the forearm. The deep venous system is patent. Large fluid collection left axilla. Significant soft tissue edema throughout the upper arm. Rinku Hillman MD Thoracentesis Ultrasound 04/30/17 0000 Signed Impressions: Service Date/Time: April 12:14 - CONCLUSION: Uncomplicated ultrasound guided thoracentesis. Tray Patel MD Port Line Insertion 04/27/17 0000 Signed Impressions: Service Date/Time: Thursday, April 27, 2017 14:56 - CONCLUSION: 1. Bulky bilateral lower cervical lymphadenopathy. 2. Uncomplicated ultrasound and fluoroscopic guided implanted central venous port catheter placement as described in detail above. An 8 [employer] port was placed. Liang Peralta MD Bone Biopsy CT 04/27/17 0000 Signed Impressions: Service Date/Time: Thursday, April 27, 2017 16:22 - CONCLUSION: 1. Uncomplicated CT guided bone marrow aspirate. 2. Uncomplicated CT guided bone marrow biopsy. Tray Patel MD Chest CT 04/25/17 0000 Signed Impressions: Service Date/Time: Wednesday, April 26, 2017 19:00 - CONCLUSION: The right pleural effusion is slightly larger on the left side has not changed. Extensive bulky adenopathy as before and malignancies such as lymphoma is suspected. Leonor Chavez MD Gall Bladder Ultrasound 04/22/17 0000 Signed Impressions: Service Date/Time: Saturday, April 22, 2017 07:35 - CONCLUSION: Small liver with focal abdomen only incompletely evaluated. Large right pleural effusion. effusion. Kirk Briceño MD FACR Abdomen CT 04/20/17 0000 Signed Impressions: Service Date/Time: Thursday, April 20, 2017 19:40 - CONCLUSION: Limited exam because of lack of intravenous contrast. Lymphoma is suspected. Pathological diagnosis could be obtained with ultrasound biopsy of the cervical, axillary or inguinal adenopathy. Kirk Briceño MD FACR Objective Remarks GENERAL: laying in bed, appears comfortable. Skin: very dry but improved w eucerin EYES: EOMI CARDIOVASCULAR: Regular rate and regular rhythm without murmurs RESPIRATORY: Clear to auscultation. Breath sounds equal bilaterally. No wheezes GASTROINTESTINAL: Abdomen soft, non-tender, nondistended. MUSCULOSKELETAL: Extremities without edema. moves all extremities. NEURO: asleep but easily arousable, speaks a bit more today Procedures 04/[address] excision biopsy 04/27- port placement 05/02-TPA 05/06-left IJ Vas-Cath placement endotracheal intubation A/P Problem List: (1) Acute pancreatitis ICD Code: K85.90 - Acute pancreatitis without necrosis or infection, unspecified Status: Resolved (2) Transaminitis ICD Code: R74.0 - Nonspecific elevation of levels of transaminase and lactic acid dehydrogenase [LDH] Status: Acute (3) ALDO (acute kidney injury) ICD Code: N17.9 - Acute kidney failure, unspecified Status: Resolved (4) Pleural effusion ICD Code: J90 - Pleural effusion, not elsewhere classified Status: Acute Assessment and Plan Medical management update 06/01/17: continue current management. pharmacy consult in place for coumadin mgt Medical management update 06/02/17: continue current management. INR is therapeutic. PT evaluated the pt yesterday and continues to recommend PT at rehab Acute Hypoxic Respiratory Failure-resolved- stable on RA Acute Submassive Pulmonary Embolism Right Heart Dysfunction Global severe left ventricular systolic dysfunction Cardiogenic Shock-resolved -- 2d echo 05/02: EF 30-35%, RV dysfunction with dilation --Repeat ECHO limited study scheduled on 05/09-RV function appears to have normalized, question of interatrial shunt for which cardiology consulted- cards recommended that once off anticoagulation, would need to be on ASA and require f/u echo periodically for evaluation. Acute Kidney Injury-resolved. Hypokalemia-replaced. hypomagnesemia- improved. -- likely secondary to cardiogenic shock -HD was discontinued. - s/p vas-cath removal- nephrology has signed off. Hyperphosphatemia-resolved. protein calorie malnutrition- severe ileus-resolved. -finance intern following; recommended alternative form of nutrition - PEG was discussed with the patient which he again declined- he states that his appetite is better now -evaluated by General surgery and GI . Large Cell B-cell lymphoma leukopenia Pulmonary Embolism anemia of chronic disease -- hematology/oncology following Dr. Connelly- - received chemo CHOP regimen. -plan for EPOCH chemotherapy June 08- as inpatient. - completed course of neupogen. leukopenia resolved. -transfused with PRBC- H/H improved- will monitor. -s/p heparin. on Coumadin. pharmacy consult in place C. difficile colitis --finished the course of Vanco and Flagyl- continue PT. DVT Prophylaxis: coumadin Discharge Planning patient is medicaid pending; no mauro bed available at [place]. [place] planning to rehab in progress but the patient might need to stay in house till the next session of his chemo. PT evaluated the patient 06/01/17 and continues to recommend PT at rehab. Problem Qualifiers (1) Acute pancreatitis: Cristina Chapman MD Jun 02, 2017 09:15
[2017-06-02] MEDS: ALLOPURINOL 300 MG TAB PO SCH (09:26)
[2017-06-02] MEDS: MAGNESIUM OXIDE 400 MG TAB PO SCH ×2 (09:26→20:36)
[2017-06-02] MEDS: PANTOPRAZOLE SODIUM 40 MG VIAL IV PUSH SCH (09:26)
[2017-06-02] MEDS: NIFEdipine 90 MG SUSTAINED RELEASE TAB PO SCH (09:27)
[2017-06-02] MEDS: CHLORHEXIDINE 0.12% (ORAL KIT) 15 ML CUP MT SCH ×2 (09:27→20:00)
--- NOTE | 2017-06-02 10:32 | PD.ONC.PN ---
Subjective Subjective Remarks Afebrile overnight Complains of mild abdominal pain Contributes this to not having a bowel movement today Objective Data Date Time Temp Pulse Resp B/P (MAP) Pulse Ox O2 Delivery O2 Flow Rate FiO2 06/02/17 08:00 98.6 74 16 119/82 (94) 98 06/02/17 08:00 77 06/02/17 04:07 69 06/02/17 04:00 97.8 82 17 110/68 (82) 95 06/02/17 00:03 75 06/02/17 00:00 97.5 77 17 116/77 (90) 98 06/01/17 21:36 97.5 80 17 109/72 (84) 99 06/01/17 20:11 82 06/01/17 16:00 97.1 58 16 128/80 (96) 96 06/01/17 12:00 97.0 60 16 137/83 (101) 96 Result Diagram: 06/01/170 06/01/17 043 Laboratory Results Laboratory Tests Test 06/02/17 05:10 Prothrombin Time 23.8 SEC Prothromb Time International Ratio 2.1 RATIO Administered Medications Medications (Trade) Dose Ordered Sig/Shyla Route PRN Reason Start Time Stop Time Status Last Admin Dose Admin Sodium Chloride (NS Flush) 2 ml UNSCH PRN IV FLUSH FLUSH AFTER USING IV ACCESS 04/18/17 17:30 05/31/17 07:53 Hydralazine HCl (Apresoline Inj) 10 mg Q6HR PRN IV PUSH SBP>160, DBP>90 04/21/17 17:00 04/27/17 10:15 Nifedipine (Procardia Xl) 90 mg DAILY PO 04/28/17 09:00 06/02/17 09:27 Clonidine (Catapres) 0.1 mg Q6H PRN PO SBP>160, DBP>90 04/27/17 15:00 04/29/17 08:07 Ondansetron HCl (Zofran Inj) 4 mg Q6HR PRN IV PUSH NAUSEA OR VOMITING 04/30/17 11:30 05/07/17 10:06 Promethazine HCl (Phenergan Inj) 25 mg Q6H PRN IM NAUSEA OR VOMITING 04/30/17 11:30 05/01/17 13:27 Acetaminophen/ Hydrocodone Bitart ([place] 5-325 Mg) 1 tab Q6H PRN PO PAIN SCALE 1 TO 10 04/30/17 11:30 05/12/17 02:48 Chlorhexidine Gluconate (Peridex 0.12% Liq) 15 ml BID@08,20 MT 05/02/17 20:00 06/02/17 09:27 Albuterol/ Ipratropium (Duoneb Neb) 1 ampule Q2HR NEB PRN INH WHEEZING 05/02/17 10:00 05/08/17 08:08 Fentanyl Citrate 250 ml @ 0 mls/hr TITRATE IV 05/02/17 10:00 05/10/17 05:36 Propofol 100 ml @ 0 mls/hr TITRATE IV 05/02/17 10:00 05/10/17 06:54 Miscellaneous Information Patient in critical care unit? Ass... Q361D .XX 05/02/17 17:15 05/02/17 17:30 Pantoprazole Sodium (Protonix Inj) 40 mg DAILY IV PUSH 05/07/17 12:00 06/02/17 09:26 Artificial Tears (Lacrilube Opht Oint) 1 applic Q8H EACH EYE 05/07/17 18:00 06/02/17 09:28 Sodium Chloride 1,000 ml @ 0 mls/hr TITRATE PRN IV WITH DIALYSIS 05/07/17 18:00 05/22/17 12:08 Sodium Chloride 1,000 ml @ 200 mls/hr Q5H PRN IV WITH DIALYSIS 05/07/17 18:00 05/25/17 10:29 Sodium Chloride (NS Flush) 5 ml UNSCH PRN IV FLUSH WITH DIALYSIS 05/07/17 18:00 05/25/17 03:50 Heparin Sodium (Porcine) (Heparin Inj) Dwell Heparin to f... UNSCH PRN OTHER WITH DIALYSIS 05/07/17 18:00 05/25/17 10:31 Gentamicin Sulfate (Gentamicin (Dialysis) Inj) 10 mg UNSCH PRN OTHER WITH DIALYSIS 05/07/17 18:00 05/25/17 10:29 Dronabinol (Marinol) 5 mg BID@11,16 PO 05/14/17 16:00 06/01/17 18:20 Sodium Chloride (NS Flush) UNSCH PRN IVF SEE PROTOCOL 05/15/17 16:00 05/25/17 03:51 Epoetin Oleksandr (Epogen Inj) 10,000 units UNSCH PRN IV WITH DIALYSIS 05/21/17 18:30 05/25/17 10:30 Warfarin Sodium (Coumadin) 4 mg DAILY@16 PO 05/23/17 16:00 06/01/17 18:21 Sodium Chloride (NS Flush) 5 ml UNSCH PRN IV FLUSH SEE PROTOCOL TABLE 05/24/17 06:45 05/25/17 03:51 Heparin Sodium (Porcine) (Heparin Central Flush) 250 units UNSCH PRN IV FLUSH SEE PROTOCOL TABLE 05/24/17 06:45 06/02/17 05:14 Allopurinol (Zyloprim) 300 mg DAILY PO 05/28/17 09:00 06/02/17 09:26 Magnesium Oxide (Mag-Ox) 400 mg Q12HR PO 05/28/17 09:00 06/02/17 09:26 Multi-Ingredient Ointment (Eucerin Cream) 1 applic Q6H PRN TOPICAL DRY SKIN 05/31/17 14:00 05/31/17 17:46 Potassium Phos/ Sodium Phos (K-Phos Neutral) 250 mg Q8HR PO 06/01/17 08:15 06/01/17 20:48 Objective Remarks GENERAL: Weak, thin appearing middle-aged male SKIN: Warm and dry. Xerosis. HEAD: Normocephalic. EYES: No injection or drainage. NECK: Right supraclav LN more prominent. LYMPHATIC: Right axillary mass more prominent and more firm. CARDIOVASCULAR: Regular rate and rhythm without murmurs. RESPIRATORY: Breath sounds equal bilaterally. No accessory muscle use. GASTROINTESTINAL: Abdomen soft, non-tender, nondistended. EXTREMITIES: No cyanosis, or edema. NEUROLOGICAL: No obvious focal deficit. Awake, alert, and oriented x3. 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 --Received Rituxan x1. --Neck adenopathy relatively stable. --05/18-->CHOP chemotherapy --The neck and axillary mass are more prominent worrisome for progression of disease -- Plan to give him Rituxan and EPOCH chemotherapy on 06/08. (2) Pulmonary emboli ICD Codes: I26.99 - Other pulmonary embolism without acute cor pulmonale Status: Acute Plan: --on coumadin --CTA showed large PE --s/p tpa therapy on 05.02 (3) Normocytic anemia ICD Codes: D64.9 - Anemia, unspecified Status: Acute Plan: --multifactorial due to chronic disease, renal failure --monitor and transfuse as needed (4) ALDO (acute kidney injury) ICD Codes: N17.9 - Acute kidney failure, unspecified Status: Resolved Plan: --creatinine significantly improved today. Assessment 47y/o male admitted with pancreatitis, found to have NHL. Have some response to R_CHOP but the masses seems more prominent again worrisome for progression of disease. Plan 1. Check INR in am. 2. Plan to restart chemotherapy next week on Thursday if kidney function stable. Attending Statement The exam, history, and the medical decision-making described in the above note were completed with the assistance of the mid-level provider. I reviewed and agree with the findings presented. I attest that I had a [id number] encounter with the patient on the same day, and personally performed and documented my assessment and findings in the medical record. No new symptoms. The right neck and left axillary masses more firm again consistent with progression of disease. Plan to treat him with R-EPOCH next Thursday in the hospital. Problem Qualifiers (1) Non-Hodgkin lymphoma: Tia Montenegro Jun 02, 2017 10:32 Ruslan Connelly MD Jun 02, 2017 16:05
[2017-06-02] MEDS: DRONABINOL 5 MG CAP PO SCH ×2 (13:31→17:39)
[2017-06-02] MEDS ORDERED: WARFARIN SOD 1 MG TAB PO ONE (16:00)
[2017-06-02] MEDS: WARFARIN SOD 4 MG TAB PO SCH (17:39)
[2017-06-03] VITALS (10 sets, daily range): BP systolic 108–139; BP diastolic 77–89; PULSE 68–87; RESP 16–20; TEMP 96.9–98.2; O2SAT 97–100
[2017-06-03] MEDS: ARTIFICIAL TEARS OPTH OINT 3.5 APPLIC/3.5 GM TUBO EACH EYE SCH ×3 (01:40→19:02)
[2017-06-03] MEDS: POTASSIUM PHOSPHATE/SODIUM PHOSPHATE 250 MG TAB PO SCH ×3 (05:18→22:34)
[2017-06-03 07:35] LABS: INTERNATIONAL NORMALIZED RATIO 1.8 RATIO; PROTHROMBIN TIME - PATIENT 20.9 SEC (9.8-11.6)
[2017-06-03] MEDS: CHLORHEXIDINE 0.12% (ORAL KIT) 15 ML CUP MT SCH ×2 (08:00→20:00)
[2017-06-03] MEDS ORDERED: HEPARIN-D5W 25,000 U/250 ML 250 ML IV PRN (09:15)
[2017-06-03] MEDS: MAGNESIUM OXIDE 400 MG TAB PO SCH ×2 (10:24→22:32)
[2017-06-03] MEDS: ALLOPURINOL 300 MG TAB PO SCH (10:24)
[2017-06-03] MEDS: NIFEdipine 90 MG SUSTAINED RELEASE TAB PO SCH (10:25)
[2017-06-03] MEDS: SODIUM CHLORIDE 0.9% FLUSH 10 ML FLUSH IV FLUSH PRN (10:26)
[2017-06-03] MEDS: PANTOPRAZOLE SODIUM 40 MG VIAL IV PUSH SCH (10:26)
[2017-06-03] MEDS: DRONABINOL 5 MG CAP PO SCH ×2 (10:36→16:40)
--- NOTE | 2017-06-03 12:00 | PD.ONC.PN ---
Subjective Subjective Remarks Afebrile overnight Continuing to work with PT No acute complaints. Objective Data Date Time Temp Pulse Resp B/P (MAP) Pulse Ox O2 Delivery O2 Flow Rate FiO2 06/03/17 10:36 97.1 72 20 139/89 (106) 100 06/03/17 04:04 73 06/03/17 04:00 97.3 80 16 125/82 (96) 98 06/03/17 00:00 97.4 82 16 128/85 (99) 99 06/03/17 00:00 73 06/02/17 20:00 97.9 77 16 120/76 (91) 98 06/02/17 20:00 79 06/02/17 16:00 97.6 72 16 122/78 (93) 96 06/02/17 14:29 82 06/02/17 12:00 98.3 79 16 128/73 (91) 97 06/02/17 12:00 77 06/03/17 06/03/17 06/03/17 07:00 15:00 23:00 Output Total 400 ml Balance -400 ml Result Diagram: 06/01/17 0430 06/01/17 0430 Laboratory Results Laboratory Tests Test 06/03/17 05:15 Prothrombin Time 20.9 SEC Prothromb Time International Ratio 1.8 RATIO Administered Medications Medications (Trade) Dose Ordered Sig/Shyla Route PRN Reason Start Time Stop Time Status Last Admin Dose Admin Sodium Chloride (NS Flush) 2 ml UNSCH PRN IV FLUSH FLUSH AFTER USING IV ACCESS 04/18/17 17:30 06/03/17 10:26 Hydralazine HCl (Apresoline Inj) 10 mg Q6HR PRN IV PUSH SBP>160, DBP>90 04/21/17 17:00 04/27/17 10:15 Nifedipine (Procardia Xl) 90 mg DAILY PO 04/28/17 09:00 06/03/17 10:25 Clonidine (Catapres) 0.1 mg Q6H PRN PO SBP>160, DBP>90 04/27/17 15:00 04/29/17 08:07 Ondansetron HCl (Zofran Inj) 4 mg Q6HR PRN IV PUSH NAUSEA OR VOMITING 04/30/17 11:30 05/07/17 10:06 Promethazine HCl (Phenergan Inj) 25 mg Q6H PRN IM NAUSEA OR VOMITING 04/30/17 11:30 05/01/17 13:27 Acetaminophen/ Hydrocodone Bitart ([place] 5-325 Mg) 1 tab Q6H PRN PO PAIN SCALE 1 TO 10 04/30/17 11:30 05/12/17 02:48 Chlorhexidine Gluconate (Peridex 0.12% Liq) 15 ml BID@08,20 MT 05/02/17 20:00 06/02/17 09:27 Albuterol/ Ipratropium (Duoneb Neb) 1 ampule Q2HR NEB PRN INH WHEEZING 05/02/17 10:00 05/08/17 08:08 Fentanyl Citrate 250 ml @ 0 mls/hr TITRATE IV 05/02/17 10:00 05/10/17 05:36 Propofol 100 ml @ 0 mls/hr TITRATE IV 05/02/17 10:00 05/10/17 06:54 Miscellaneous Information Patient in critical care unit? Ass... Q361D .XX 05/02/17 17:15 05/02/17 17:30 Pantoprazole Sodium (Protonix Inj) 40 mg DAILY IV PUSH 05/07/17 12:00 06/03/17 10:26 Artificial Tears (Lacrilube Opht Oint) 1 applic Q8H EACH EYE 05/07/17 18:00 06/03/17 10:26 Sodium Chloride 1,000 ml @ 0 mls/hr TITRATE PRN IV WITH DIALYSIS 05/07/17 18:00 05/22/17 12:08 Sodium Chloride 1,000 ml @ 200 mls/hr Q5H PRN IV WITH DIALYSIS 05/07/17 18:00 05/25/17 10:29 Sodium Chloride (NS Flush) 5 ml UNSCH PRN IV FLUSH WITH DIALYSIS 05/07/17 18:00 05/25/17 03:50 Heparin Sodium (Porcine) (Heparin Inj) Dwell Heparin to f... UNSCH PRN OTHER WITH DIALYSIS 05/07/17 18:00 05/25/17 10:31 Gentamicin Sulfate (Gentamicin (Dialysis) Inj) 10 mg UNSCH PRN OTHER WITH DIALYSIS 05/07/17 18:00 05/25/17 10:29 Dronabinol (Marinol) 5 mg BID@11,16 PO 05/14/17 16:00 06/03/17 10:36 Sodium Chloride (NS Flush) UNSCH PRN IVF SEE PROTOCOL 05/15/17 16:00 05/25/17 03:51 Epoetin Oleksandr (Epogen Inj) 10,000 units UNSCH PRN IV WITH DIALYSIS 05/21/17 18:30 05/25/17 10:30 Warfarin Sodium (Coumadin) 4 mg DAILY@16 PO 05/23/17 16:00 06/02/17 17:39 Sodium Chloride (NS Flush) 5 ml UNSCH PRN IV FLUSH SEE PROTOCOL TABLE 05/24/17 06:45 05/25/17 03:51 Heparin Sodium (Porcine) (Heparin Central Flush) 250 units UNSCH PRN IV FLUSH SEE PROTOCOL TABLE 05/24/17 06:45 06/02/17 05:14 Allopurinol (Zyloprim) 300 mg DAILY PO 05/28/17 09:00 06/03/17 10:24 Magnesium Oxide (Mag-Ox) 400 mg Q12HR PO 05/28/17 09:00 06/03/17 10:24 Multi-Ingredient Ointment (Eucerin Cream) 1 applic Q6H PRN TOPICAL DRY SKIN 05/31/17 14:00 05/31/17 17:46 Potassium Phos/ Sodium Phos (K-Phos Neutral) 250 mg Q8HR PO 06/01/17 08:15 06/03/17 05:18 Objective Remarks GENERAL: Weak, thin appearing middle-aged male SKIN: Warm and dry. Xerosis. HEAD: Normocephalic. EYES: No injection or drainage. NECK: Right supraclavicular LN prominent. LYMPHATIC: Right axillary mass prominent and firm. CARDIOVASCULAR: Regular rate and rhythm without murmurs. RESPIRATORY: Breath sounds equal bilaterally. No accessory muscle use. GASTROINTESTINAL: Abdomen soft, non-tender, nondistended. EXTREMITIES: No cyanosis, or edema. NEUROLOGICAL: No obvious focal deficit. Awake, alert, and oriented x3. 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 --Received Rituxan x1. --Neck adenopathy relatively stable. --05/18-->CHOP chemotherapy --The neck and axillary mass are more prominent worrisome for progression of disease -- Plan to give him Rituxan and EPOCH chemotherapy on 06/08. (2) Pulmonary emboli ICD Codes: I26.99 - Other pulmonary embolism without acute cor pulmonale Status: Acute Plan: --on coumadin --CTA showed large PE --s/p tpa therapy on 7.2 -- Start Lovenox; INR subtherapeutic. (3) Normocytic anemia ICD Codes: D64.9 - Anemia, unspecified Status: Acute Plan: --multifactorial due to chronic disease, renal failure --monitor and transfuse as needed (4) ALDO (acute kidney injury) ICD Codes: N17.9 - Acute kidney failure, unspecified Status: Resolved Plan: --creatinine significantly improved. Assessment 47y/o male admitted with pancreatitis, found to have NHL. Have some response to R_CHOP but the masses seems more prominent again worrisome for progression of disease. Plan 1. Start Lovenox for sub-therapeutic INR. 2. Plan to restart chemotherapy next week on Thursday. 3. OK for discharge home to mother's house. 4. Arrange for readmission on Thursday for inpatient chemotherapy. 5. Recommend he go home on Allopurinol. Attending Statement The exam, history, and the medical decision-making described in the above note were completed with the assistance of the mid-level provider. I reviewed and agree with the findings presented. I attest that I had a [id number] encounter with the patient on the same day, and personally performed and documented my assessment and findings in the medical record. Feeling stronger. The left axillary mass more firm. Plan to treat with R-da-EPOCH 06/08. Continue allopurinol. If d/c, will need to readmit 06/08 for chemotherapy. Problem Qualifiers (1) Non-Hodgkin lymphoma: Tia Montenegor Jun 03, 2017 12:00 Ruslan Connelly MD Jun 03, 2017 15:37
[2017-06-03] MEDS: ENOXAPARIN SODIUM 60 MG/0.6 ML SYRINGE SQ SCH (14:08)
[2017-06-03] MEDS ORDERED: WARFARIN SOD 3 MG TAB PO ONE (16:00)
[2017-06-03] MEDS: WARFARIN SOD 5 MG TAB PO SCH (16:36)
--- NOTE | 2017-06-03 17:32 | HHI.PR ---
Subjective Remarks Follow-up for chemotherapy and anticoagulation INR subtherapeutic, would like to have regular diet, discussed with oncology. Chemotherapy on Thursday. Objective Vitals Vital Signs Date Time Temp Pulse Resp B/P (MAP) Pulse Ox O2 Delivery O2 Flow Rate FiO2 06/03/17 17:00 96.9 68 16 124/83 (97) 97 06/03/17 14:00 97.3 76 16 129/88 (102) 97 06/03/17 10:36 97.1 72 20 139/89 (106) 100 06/03/17 04:04 73 06/03/17 04:00 97.3 80 16 125/82 (96) 98 06/03/17 00:00 97.4 82 16 128/85 (99) 99 06/03/17 00:00 73 06/02/17 20:00 97.9 77 16 120/76 (91) 98 06/02/17 20:00 79 I/O 06/02/17 06/02/17 06/02/17 06/03/17 06/03/17 06/03/17 07:00 15:00 23:00 07:00 15:00 23:00 Intake Total 840 ml 840 ml Output Total 300 ml 100 ml 400 ml Balance 540 ml -100 ml -400 ml 840 ml Intake Oral 840 ml 840 ml Output Urine Total 300 ml 100 ml 400 ml # Voids 2 Result Diagram: 06/01/1742906/01/17 043 Objective Remarks GENERAL: laying in bed, appears comfortable. EYES: EOMI CARDIOVASCULAR: Regular rate and regular rhythm without murmurs RESPIRATORY: Clear to auscultation. Breath sounds equal bilaterally. No wheezes GASTROINTESTINAL: Abdomen soft, non-tender, nondistended. MUSCULOSKELETAL: Extremities without edema. moves all extremities. Alert awake and oriented Procedures 04/[address] excision biopsy 04/27- port placement 05/02-TPA 05/06-left IJ Vas-Cath placement endotracheal intubation A/P Problem List: (1) Acute pancreatitis ICD Code: K85.90 - Acute pancreatitis without necrosis or infection, unspecified Status: Resolved (2) Transaminitis ICD Code: R74.0 - Nonspecific elevation of levels of transaminase and lactic acid dehydrogenase [LDH] Status: Acute (3) ALDO (acute kidney injury) ICD Code: N17.9 - Acute kidney failure, unspecified Status: Resolved (4) Pleural effusion ICD Code: J90 - Pleural effusion, not elsewhere classified Status: Acute Assessment and Plan Acute Hypoxic Respiratory Failure-resolved- stable on RA Acute Submassive Pulmonary Embolism Right Heart Dysfunction Global severe left ventricular systolic dysfunction Cardiogenic Shock-resolved -- 2d echo 05/02: EF 30-35%, RV dysfunction with dilation --Repeat ECHO limited study scheduled on 05/09-RV function appears to have normalized, question of interatrial shunt for which cardiology consulted- cards recommended that once off anticoagulation, would need to be on ASA and require f/u echo periodically for evaluation. Acute Kidney Injury-resolved. Hypokalemia-replaced. hypomagnesemia- improved. -- likely secondary to cardiogenic shock -HD was discontinued. - s/p vas-cath removal- nephrology has signed off. Hyperphosphatemia-resolved. protein calorie malnutrition- severe ileus-resolved. -enamel burner following; recommended alternative form of nutrition - PEG was discussed with the patient which he again declined- he states that his appetite is better now -evaluated by General surgery and GI . Large Cell B-cell lymphoma leukopenia Pulmonary Embolism anemia of chronic disease -- hematology/oncology following Dr. Connelly- - received chemo CHOP regimen. -plan for EPOCH chemotherapy June 08- as inpatient. - completed course of neupogen. leukopenia resolved. -transfused with PRBC- H/H improved- will monitor. -INR subtherapeutic, discussed with oncology, will consider that to Lovenox. If no change tomorrow, may discharge and direct admit for chemotherapy on Thursday. C. difficile colitis --finished the course of Vanco and Flagyl- continue PT. DVT Prophylaxis: coumadin switch to Lovenox. Currently on mechanical soft, Speech therapy consulted for swallow evaluation, discharge if can tolerate regular diet. Discharge Planning Speech therapy consulted for swallow evaluation, discharge if can tolerate diet. Problem Qualifiers (1) Acute pancreatitis: Celso Posada MD Jun 03, 2017 17:32
[2017-06-04] VITALS (9 sets, daily range): BP systolic 105–134; BP diastolic 70–91; PULSE 67–86; RESP 16–18; TEMP 97–97.8; O2SAT 98–100
[2017-06-04] MEDS: ARTIFICIAL TEARS OPTH OINT 3.5 APPLIC/3.5 GM TUBO EACH EYE SCH ×3 (02:00→17:35)
[2017-06-04] MEDS: ENOXAPARIN SODIUM 60 MG/0.6 ML SYRINGE SQ SCH ×2 (03:50→14:13)
[2017-06-04] MEDS: POTASSIUM PHOSPHATE/SODIUM PHOSPHATE 250 MG TAB PO SCH ×3 (05:26→21:33)
[2017-06-04 07:07] LABS: INTERNATIONAL NORMALIZED RATIO 1.9 RATIO; PROTHROMBIN TIME - PATIENT 21.7 SEC (9.8-11.6)
[2017-06-04] MEDS: CHLORHEXIDINE 0.12% (ORAL KIT) 15 ML CUP MT SCH ×2 (08:00→20:00)
[2017-06-04] MEDS: NIFEdipine 90 MG SUSTAINED RELEASE TAB PO SCH (09:00)
[2017-06-04] MEDS: MAGNESIUM OXIDE 400 MG TAB PO SCH ×2 (10:02→21:33)
[2017-06-04] MEDS: ALLOPURINOL 300 MG TAB PO SCH (10:02)
[2017-06-04] MEDS: PANTOPRAZOLE SODIUM 40 MG VIAL IV PUSH SCH (10:04)
[2017-06-04] MEDS: DRONABINOL 5 MG CAP PO SCH ×2 (11:00→14:13)
--- NOTE | 2017-06-04 12:57 | PD.ONC.PN ---
Subjective Subjective Remarks Patient ambulating around the room with physical therapy No acute complaints Objective Data Date Time Temp Pulse Resp B/P (MAP) Pulse Ox O2 Delivery O2 Flow Rate FiO2 06/04/17 08:00 97.7 81 16 131/91 (104) 98 06/04/17 05:30 78 06/04/17 04:00 97.6 80 18 105/70 (82) 99 06/04/17 00:00 97.8 86 18 112/77 (89) 99 06/03/17 20:00 98.2 87 18 108/77 (87) 97 06/03/17 17:00 96.9 68 16 124/83 (97) 97 06/03/17 16:00 72 06/03/17 14:00 97.3 76 16 129/88 (102) 97 06/04/17 06/04/17 06/04/17 07:00 15:00 23:00 Intake Total 240 ml Output Total 300 ml Balance -60 ml Result Diagram: 06/01/1742906/01/17 043 Laboratory Results Laboratory Tests Test 06/04/17 05:30 Prothrombin Time 21.7 SEC Prothromb Time International Ratio 1.9 RATIO Administered Medications Medications (Trade) Dose Ordered Sig/Shyla Route PRN Reason Start Time Stop Time Status Last Admin Dose Admin Sodium Chloride (NS Flush) 2 ml UNSCH PRN IV FLUSH FLUSH AFTER USING IV ACCESS 04/18/17 17:30 06/03/17 10:26 Hydralazine HCl (Apresoline Inj) 10 mg Q6HR PRN IV PUSH SBP>160, DBP>90 04/21/17 17:00 04/27/17 10:15 Nifedipine (Procardia Xl) 90 mg DAILY PO 04/28/17 09:00 06/04/17 09:00 Clonidine (Catapres) 0.1 mg Q6H PRN PO SBP>160, DBP>90 04/27/17 15:00 04/29/17 08:07 Ondansetron HCl (Zofran Inj) 4 mg Q6HR PRN IV PUSH NAUSEA OR VOMITING 04/30/17 11:30 05/07/17 10:06 Promethazine HCl (Phenergan Inj) 25 mg Q6H PRN IM NAUSEA OR VOMITING 04/30/17 11:30 05/01/17 13:27 Acetaminophen/ Hydrocodone Bitart ([place] 5-325 Mg) 1 tab Q6H PRN PO PAIN SCALE 1 TO 10 04/30/17 11:30 05/12/17 02:48 Chlorhexidine Gluconate (Peridex 0.12% Liq) 15 ml BID@08,20 MT 05/02/17 20:00 06/02/17 09:27 Albuterol/ Ipratropium (Duoneb Neb) 1 ampule Q2HR NEB PRN INH WHEEZING 05/02/17 10:00 05/08/17 08:08 Miscellaneous Information Patient in critical care unit? Ass... Q361D .XX 05/02/17 17:15 05/02/17 17:30 Pantoprazole Sodium (Protonix Inj) 40 mg DAILY IV PUSH 05/07/17 12:00 06/04/17 10:04 Artificial Tears (Lacrilube Opht Oint) 1 applic Q8H EACH EYE 05/07/17 18:00 06/03/17 19:02 Sodium Chloride 1,000 ml @ 0 mls/hr TITRATE PRN IV WITH DIALYSIS 05/07/17 18:00 05/22/17 12:08 Sodium Chloride 1,000 ml @ 200 mls/hr Q5H PRN IV WITH DIALYSIS 05/07/17 18:00 05/25/17 10:29 Sodium Chloride (NS Flush) 5 ml UNSCH PRN IV FLUSH WITH DIALYSIS 05/07/17 18:00 05/25/17 03:50 Heparin Sodium (Porcine) (Heparin Inj) Dwell Heparin to f... UNSCH PRN OTHER WITH DIALYSIS 05/07/17 18:00 05/25/17 10:31 Gentamicin Sulfate (Gentamicin (Dialysis) Inj) 10 mg UNSCH PRN OTHER WITH DIALYSIS 05/07/17 18:00 05/25/17 10:29 Dronabinol (Marinol) 5 mg BID@11,16 PO 05/14/17 16:00 06/03/17 16:40 Sodium Chloride (NS Flush) UNSCH PRN IVF SEE PROTOCOL 05/15/17 16:00 05/25/17 03:51 Epoetin Oleksandr (Epogen Inj) 10,000 units UNSCH PRN IV WITH DIALYSIS 05/21/17 18:30 05/25/17 10:30 Sodium Chloride (NS Flush) 5 ml UNSCH PRN IV FLUSH SEE PROTOCOL TABLE 05/24/17 06:45 05/25/17 03:51 Heparin Sodium (Porcine) (Heparin Central Flush) 250 units UNSCH PRN IV FLUSH SEE PROTOCOL TABLE 05/24/17 06:45 06/02/17 05:14 Allopurinol (Zyloprim) 300 mg DAILY PO 05/28/17 09:00 06/04/17 10:02 Magnesium Oxide (Mag-Ox) 400 mg Q12HR PO 05/28/17 09:00 06/04/17 10:02 Multi-Ingredient Ointment (Eucerin Cream) 1 applic Q6H PRN TOPICAL DRY SKIN 05/31/17 14:00 05/31/17 17:46 Potassium Phos/ Sodium Phos (K-Phos Neutral) 250 mg Q8HR PO 06/01/17 08:15 06/04/17 05:26 Warfarin Sodium (Coumadin) 5 mg DAILY@1600 PO 06/03/17 16:00 06/03/17 16:36 Enoxaparin Sodium (Lovenox Inj) 60 mg Q12H SQ 06/03/17 13:00 06/04/17 03:50 Objective Remarks GENERAL: Weak, thin appearing middle-aged male walking around the room SKIN: Warm and dry. Xerosis. HEAD: Normocephalic. EYES: No injection or drainage. NECK: Right supraclavicular LN prominent. LYMPHATIC: Right axillary mass prominent and firm. CARDIOVASCULAR: Regular rate and rhythm without murmurs. RESPIRATORY: Breath sounds equal bilaterally. No accessory muscle use. GASTROINTESTINAL: Abdomen soft, non-tender, nondistended. EXTREMITIES: No cyanosis, or edema. NEUROLOGICAL: No obvious focal deficit. Awake, alert, and oriented x3. 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 --Received Rituxan x1. --Neck adenopathy relatively stable. --05/18-->CHOP chemotherapy --The neck and axillary mass are more prominent worrisome for progression of disease -- Plan to give him Rituxan and EPOCH chemotherapy on 06/08. (2) Pulmonary emboli ICD Codes: I26.99 - Other pulmonary embolism without acute cor pulmonale Status: Acute Plan: --on coumadin --CTA showed large PE --s/p tpa therapy on 7.2 --Continue Lovenox; INR subtherapeutic. (3) Normocytic anemia ICD Codes: D64.9 - Anemia, unspecified Status: Acute Plan: --multifactorial due to chronic disease, renal failure --monitor and transfuse as needed (4) ALDO (acute kidney injury) ICD Codes: N17.9 - Acute kidney failure, unspecified Status: Resolved Plan: --creatinine significantly improved. Assessment 47y/o male admitted with pancreatitis, found to have NHL. Have some response to R_CHOP but the masses seems more prominent again worrisome for progression of disease. Plan 1. Continue therapeutic Lovenox 2. Coumadin increased yesterday to 5 mg by mouth daily 3. Continue allopurinol 4. Daily INR 5. Plan for chemotherapy on Thursday Attending Statement The exam, history, and the medical decision-making described in the above note were completed with the assistance of the mid-level provider. I reviewed and agree with the findings presented. I attest that I had a [id number] encounter with the patient on the same day, and personally performed and documented my assessment and findings in the medical record. Axillary mass more firm. INR not therapeutic. Continue lovenox and titrate coumadin. Plan to start chemo on Thursday. Continue allopurinol. Problem Qualifiers (1) Non-Hodgkin lymphoma: Tia Montenegro Jun 04, 2017 12:57 Ruslan Connelly MD Jun 04, 2017 17:57
[2017-06-04] MEDS ORDERED: ALLO300 PO (14:59)
[2017-06-04] MEDS ORDERED: ENOX60P SQ (14:59)
[2017-06-04] MEDS ORDERED: DRON5CAP PO (14:59)
[2017-06-04] MEDS ORDERED: NIFE90TA2 PO (14:59)
--- NOTE | 2017-06-04 15:07 | HHI.DS ---
Discharge Summary Admission Date Apr 18, 2017 at 19:08 Discharge Date: Jun 04, 2017 Admitting Diagnosis Acute Pancreatitis, Dehydration (1) Acute pancreatitis ICD Code: K85.90 - Acute pancreatitis without necrosis or infection, unspecified Status: Resolved (2) Transaminitis ICD Code: R74.0 - Nonspecific elevation of levels of transaminase and lactic acid dehydrogenase [LDH] Status: Acute (3) ALDO (acute kidney injury) ICD Code: N17.9 - Acute kidney failure, unspecified Status: Resolved (4) Pleural effusion ICD Code: J90 - Pleural effusion, not elsewhere classified Status: Acute Procedures 04/[address] excision biopsy 04/27- port placement 05/02-TPA 05/06-left IJ Vas-Cath placement endotracheal intubation Brief History - From Admission Written by JITENDRA Terrazas acting as scribe for Dr. Barrera] on 04/18/17 at 19:53. 47 y/o male with no medical history presented to the ED with complaints of abdominal pain, nausea and vomiting. Patient states for the last 2 weeks he has not been able to keep anything down and he has been vomiting at least twice a day, with watery stools. Denies any blood in his emesis or stools. Patient states he used to be a heavy drinker but quit 2 months ago. Denies any chest pain, shortness of breath, fever or chills. Patient does complain of a nonproductive cough, that has been getting worse, he also states he was a heavy smoker up until about 2 months ago. CBC/BMP: 06/01/17 0430 06/01/17 0430 Significant Findings Laboratory Tests Test 06/02/17 05:10 06/03/17 05:15 06/04/17 05:30 Prothrombin Time 23.8 SEC (9.8-11.6) 20.9 SEC (9.8-11.6) 21.7 SEC (9.8-11.6) PE at Discharge GENERAL: laying in bed, appears comfortable. EYES: EOMI CARDIOVASCULAR: Regular rate and regular rhythm without murmurs RESPIRATORY: Clear to auscultation. Breath sounds equal bilaterally. No wheezes GASTROINTESTINAL: Abdomen soft, non-tender, nondistended. MUSCULOSKELETAL: Extremities without edema. moves all extremities. Alert awake and oriented Hospital Course This is a 47-year-old male who initially came in with nausea, vomiting, abdominal pain and diarrhea. This is a 47-year-old male with no past medical history presents to the emergency room with a two-week history of nausea vomiting and diarrhea. Prior to this he was in his normal state of health. His liver enzymes were elevated and thought to be pancreatitis. He presented with a urinary tract infection. A CT scan was obtained which shows diffuse adenopathy in the neck, thorax and abdomen. Lymphoma is suspected. A General Surgery consultation has been requested for an excisional lymph node biopsy of the left axillary. 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 Since last seen, the patient has had acute respiratory failure requiring mechanical ventilation, pulmonary emboli, and acute renal failure requiring hemodialysis. A CT abdomen/pelvis was obtained which was concerning for a small bowel obstruction. The patient is having copious amount of diarrhea. A General Surgery consultation was requested for evaluation of SBO vs ileus. Acute Hypoxic Respiratory Failure-resolved- stable on RA Acute Submassive Pulmonary Embolism Right Heart Dysfunction Global severe left ventricular systolic dysfunction Cardiogenic Shock-resolved -- 2d echo 05/02: EF 30-35%, RV dysfunction with dilation --Repeat ECHO limited study scheduled on 05/09-RV function appears to have normalized, question of interatrial shunt for which cardiology consulted- cards recommended that once off anticoagulation, would need to be on ASA and require f/u echo periodically for evaluation. Acute Kidney Injury-resolved. Hypokalemia-replaced. hypomagnesemia- improved. -- likely secondary to cardiogenic shock -HD was discontinued. - s/p vas-cath removal- nephrology has signed off. Hyperphosphatemia-resolved. protein calorie malnutrition- severe ileus-resolved. -financial coordinator following; recommended alternative form of nutrition - PEG was discussed with the patient which he again declined- he states that his appetite is better now -evaluated by General surgery and GI . Large Cell B-cell lymphoma leukopenia Pulmonary Embolism anemia of chronic disease -- hematology/oncology following Dr. Connelly- - received chemo CHOP regimen. -plan for EPOCH chemotherapy June 08- as inpatient. - completed course of neupogen. leukopenia resolved. -transfused with PRBC- H/H improved- will monitor. -INR subtherapeutic, discussed with oncology, will consider that to Lovenox. If no change tomorrow, may discharge and direct admit for chemotherapy on Thursday. C. difficile colitis --finished the course of Vanco and Flagyl- continue PT. DVT Prophylaxis: coumadin switch to Lovenox. Currently on mechanical soft, Speech therapy consulted for swallow evaluation, discharge if can tolerate regular diet. Discharge Planning Speech therapy consulted for swallow evaluation, discharge if can tolerate diet. Pt Condition on Discharge: Good Discharge Disposition: Discharge Home Discharge Instructions DIET: Follow Instructions for: As Tolerated, No Restrictions Speech Therapy-Diet Recommends: Regular Activities you can perform: Regular-No Restrictions Celso Posada MD Jun 04, 2017 15:07
--- NOTE | 2017-06-04 15:25 | HHI.PR ---
Subjective Remarks f/u for PE INR subtherapeutic, wants to go home, but needs chemotherapy Objective Vitals Vital Signs Date Time Temp Pulse Resp B/P (MAP) Pulse Ox O2 Delivery O2 Flow Rate FiO2 06/04/17 12:00 97.0 85 18 122/81 (95) 100 06/04/17 08:00 97.7 81 16 131/91 (104) 98 06/04/17 05:30 78 06/04/17 04:00 97.6 80 18 105/70 (82) 99 06/04/17 00:00 97.8 86 18 112/77 (89) 99 06/03/17 20:00 98.2 87 18 108/77 (87) 97 06/03/17 17:00 96.9 68 16 124/83 (97) 97 06/03/17 16:00 72 I/O 06/03/17 06/03/17 06/03/17 06/04/17 06/04/17 06/04/17 06:59 14:59 22:59 06:59 14:59 22:59 Intake Total 1080 ml 240 ml Output Total 400 ml 500 ml 300 ml Balance -400 ml 580 ml -60 ml Intake Oral 1080 ml 240 ml Output Urine Total 400 ml 500 ml 300 ml # Voids 2 Result Diagram: 06/01/1742906/01/17429 Objective Remarks GENERAL: laying in bed, appears comfortable. EYES: EOMI CARDIOVASCULAR: Regular rate and regular rhythm without murmurs RESPIRATORY: Clear to auscultation. Breath sounds equal bilaterally. No wheezes GASTROINTESTINAL: Abdomen soft, non-tender, nondistended. MUSCULOSKELETAL: Extremities without edema. moves all extremities. Alert awake and oriented Procedures 04/[address] excision biopsy 04/27- port placement 05/02-TPA 05/06-left IJ Vas-Cath placement endotracheal intubation A/P Problem List: (1) Acute pancreatitis ICD Code: K85.90 - Acute pancreatitis without necrosis or infection, unspecified Status: Resolved (2) Transaminitis ICD Code: R74.0 - Nonspecific elevation of levels of transaminase and lactic acid dehydrogenase [LDH] Status: Acute (3) ALDO (acute kidney injury) ICD Code: N17.9 - Acute kidney failure, unspecified Status: Resolved (4) Pleural effusion ICD Code: J90 - Pleural effusion, not elsewhere classified Status: Acute Assessment and Plan Acute Hypoxic Respiratory Failure Acute Submassive Pulmonary Embolism Right Heart Dysfunction Global severe left ventricular systolic dysfunction Cardiogenic Shock-resolved -- 2d echo 05/02: EF 30-35%, RV dysfunction with dilation --Repeat ECHO limited study scheduled on 05/09-RV function appears to have normalized, question of interatrial shunt for which cardiology consulted- cards recommended that once off anticoagulation, would need to be on ASA and require f/u echo periodically for evaluation. Acute Kidney Injury-resolved. Hypokalemia-replaced. hypomagnesemia- improved. -- likely secondary to cardiogenic shock -HD was discontinued. - s/p vas-cath removal- nephrology has signed off. Hyperphosphatemia-resolved. protein calorie malnutrition- severe ileus-resolved. -manager inspection following; recommended alternative form of nutrition - PEG was discussed with the patient which he again declined, he states that his appetite is better now , send this patient therapy, regular diet with thin liquids. Large Cell B-cell lymphoma leukopenia Pulmonary Embolism anemia of chronic disease -- hematology/oncology following Dr. Connelly- - received chemo CHOP regimen. -plan for EPOCH chemotherapy on Thursday as inpatient. -INR subtherapeutic, continue Coumadin, colored Lovenox was subtherapeutic, recheck INR tomorrow. C. difficile colitis --finished the course of Vanco and Flagyl- DVT Prophylaxis: coumadin, Lovenox was subtherapeutic Discharge Planning Will keep inpatient to finish chemotherapy. Discharge once cleared by hematology. Problem Qualifiers (1) Acute pancreatitis: Celso Posada MD Jun 04, 2017 15:25
[2017-06-04] MEDS: WARFARIN SOD 5 MG TAB PO SCH (17:36)
[2017-06-05] VITALS (8 sets, daily range): BP systolic 128–147; BP diastolic 76–90; PULSE 77–93; RESP 16–20; TEMP 97.1–98.5; O2SAT 98–100
[2017-06-05] MEDS: ENOXAPARIN SODIUM 60 MG/0.6 ML SYRINGE SQ SCH ×2 (01:00→15:49)
[2017-06-05] MEDS: ARTIFICIAL TEARS OPTH OINT 3.5 APPLIC/3.5 GM TUBO EACH EYE SCH ×3 (02:00→18:00)
[2017-06-05] MEDS: POTASSIUM PHOSPHATE/SODIUM PHOSPHATE 250 MG TAB PO SCH ×3 (06:20→19:15)
[2017-06-05] MEDS: CHLORHEXIDINE 0.12% (ORAL KIT) 15 ML CUP MT SCH (07:41)
[2017-06-05 08:26] LABS: BASOPHIL % 0.7 % (0.0-2.0); EOSINOPHIL % 0.8 % (0.0-4.0); HEMATOCRIT 28.4 % (39.0-51.0); HEMO FLAGS DIFF FINAL; LYMPH % 13.3 % (9.0-44.0); LYMPHOCYTE # 0.5 TH/MM3 (1.0-4.8); MEAN CELL VOLUME 89.9 FL (80.0-100.0); MEAN CORPUSCULAR HEMOGLOBIN 30.4 PG (27.0-34.0); MEAN CORPUSCULAR HGB CONC 33.8 % (32.0-36.0); MONO % 9.6 % (0.0-8.0); NEUT % 75.6 % (16.0-70.0); PLATELET COUNT 258 TH/MM3 (150-450); RED BLOOD COUNT 3.16 MIL/MM3 (4.50-5.90); RED CELL DISTRIBUTION WIDTH 17.4 % (11.6-17.2)
[2017-06-05 08:33] LABS: INTERNATIONAL NORMALIZED RATIO 1.6 RATIO; PROTHROMBIN TIME - PATIENT 18.3 SEC (9.8-11.6)
[2017-06-05 09:06] LABS: BICARBONATE 24.1 MEQ/L (21.0-32.0); POTASSIUM 3.4 MEQ/L (3.5-5.1)
[2017-06-05] MEDS: ALLOPURINOL 300 MG TAB PO SCH (09:15)
[2017-06-05] MEDS: PANTOPRAZOLE SODIUM 40 MG VIAL IV PUSH SCH (09:15)
[2017-06-05] MEDS: NIFEdipine 90 MG SUSTAINED RELEASE TAB PO SCH (09:15)
[2017-06-05] MEDS: MAGNESIUM OXIDE 400 MG TAB PO SCH ×2 (09:15→19:15)
[2017-06-05 09:34] LABS: CALCIUM-PROTEIN CORRECTED 8.1 MG/DL (8.5-10.1)
--- NOTE | 2017-06-05 10:32 | HHI.PR ---
Subjective Remarks Resting in bed, no fever or chills, no chest pain or short of breath Plan on chemotherapy on Thursday Objective Vitals Vital Signs Date Time Temp Pulse Resp B/P (MAP) Pulse Ox O2 Delivery O2 Flow Rate FiO2 06/05/17 08:00 98.2 81 16 136/85 (102) 100 06/05/17 04:00 97.8 77 18 144/87 (106) 99 06/05/17 00:14 81 06/05/17 00:00 97.6 80 18 128/76 (93) 98 06/04/17 20:06 82 06/04/17 20:00 97.2 85 18 114/78 (90) 100 06/04/17 17:09 86 06/04/17 16:00 97.8 82 18 134/87 (103) 100 06/04/17 12:00 97.0 85 18 122/81 (95) 100 06/04/17 12:00 78 I/O 06/04/17 06/04/17 06/04/17 06/05/17 06/05/17 06/05/17 07:00 15:00 23:00 07:00 15:00 23:00 Intake Total 240 ml 1200 ml Output Total 300 ml 1100 ml 700 ml Balance -60 ml 100 ml -700 ml Intake Oral 240 ml 1200 ml Output Urine Total 300 ml 1100 ml 700 ml # Voids 2 # Bowel Movements 1 Result Diagram: 06/05/1762506/05/17625 Objective Remarks GENERAL: This is a well-nourished, well-developed patient, in no apparent distress. SKIN: No rashes, warm and dry HEAD: Atraumatic. Normocephalic. EYES: Pupils equal round and reactive. Extraocular motions intact. No scleral icterus. ENT: Nose without bleeding, or drainage, Airway patent. NECK: Trachea midline. Supple CARDIOVASCULAR: Regular rate and rhythm without murmurs, gallops, or rubs. RESPIRATORY: Fair air entry bilaterally. No wheezes, rales, or rhonchi. GASTROINTESTINAL: Abdomen soft, non-tender, nondistended. Positive bowel sounds MUSCULOSKELETAL: Extremities without clubbing, cyanosis, or edema. Pedal pulses appreciated NEUROLOGICAL: Awake and alert. Moves all extremity. Normal speech.no focal neurological deficit Procedures 04/[address] excision biopsy 04/27- port placement 05/02-TPA 05/06-left IJ Vas-Cath placement endotracheal intubation A/P Problem List: (1) Acute pancreatitis ICD Code: K85.90 - Acute pancreatitis without necrosis or infection, unspecified Status: Resolved (2) Transaminitis ICD Code: R74.0 - Nonspecific elevation of levels of transaminase and lactic acid dehydrogenase [LDH] Status: Acute (3) ALDO (acute kidney injury) ICD Code: N17.9 - Acute kidney failure, unspecified Status: Resolved (4) Pleural effusion ICD Code: J90 - Pleural effusion, not elsewhere classified Status: Acute Assessment and Plan 06/05: Stable, plan for chemotherapy on Thursday her hematology oncology A/P: Acute Hypoxic Respiratory Failure Acute Submassive Pulmonary Embolism Right Heart Dysfunction Global severe left ventricular systolic dysfunction Cardiogenic Shock-resolved -- 2d echo 05/02: EF 30-35%, RV dysfunction with dilation --Repeat ECHO limited study scheduled on 05/09-RV function appears to have normalized, question of interatrial shunt for which cardiology consulted- cards recommended that once off anticoagulation, would need to be on ASA and require f/u echo periodically for evaluation. Acute Kidney Injury-resolved. Hypokalemia-replaced. hypomagnesemia- improved. -- likely secondary to cardiogenic shock -HD was discontinued. - s/p vas-cath removal- nephrology has signed off. Hyperphosphatemia-resolved. protein calorie malnutrition- severe ileus-resolved. -social service coordinator following; recommended alternative form of nutrition - PEG was discussed with the patient which he again declined, he states that his appetite is better now , send this patient therapy, regular diet with thin liquids. Large Cell B-cell lymphoma leukopenia Pulmonary Embolism anemia of chronic disease -- hematology/oncology following Dr. Connelly- - received chemo CHOP regimen. -plan for EPOCH chemotherapy on Thursday as inpatient. -INR subtherapeutic, continue Coumadin, colored Lovenox was subtherapeutic, recheck INR tomorrow. C. difficile colitis --finished the course of Vanco and Flagyl- DVT Prophylaxis: coumadin, Lovenox was subtherapeutic Discharge Planning Will keep inpatient to finish chemotherapy. Discharge once cleared by hematology. Problem Qualifiers (1) Acute pancreatitis: Tereso Foote MD Jun 05, 2017 10:32
--- NOTE | 2017-06-05 10:45 | PD.ONC.PN ---
Subjective Subjective Remarks Afebrile INR remains subtherapeutic Objective Data Date Time Temp Pulse Resp B/P (MAP) Pulse Ox O2 Delivery O2 Flow Rate FiO2 06/05/17 08:00 98.2 81 16 136/85 (102) 100 06/05/17 04:00 97.8 77 18 144/87 (106) 99 06/05/17 00:14 81 06/05/17 00:00 97.6 80 18 128/76 (93) 98 06/04/17 20:06 82 06/04/17 20:00 97.2 85 18 114/78 (90) 100 06/04/17 17:09 86 06/04/17 16:00 97.8 82 18 134/87 (103) 100 06/04/17 12:00 97.0 85 18 122/81 (95) 100 06/04/17 12:00 78 06/05/17 06/05/17 06/05/17 07:00 15:00 23:00 Output Total 700 ml Balance -700 ml Result Diagram: 06/05/1762506/05/17 06 Laboratory Results Laboratory Tests Test 06/05/17 06:26 White Blood Count 4.0 TH/MM3 Red Blood Count 3.16 MIL/MM3 Hemoglobin 9.6 GM/DL Hematocrit 28.4 % Mean Corpuscular Volume 89.9 FL Mean Corpuscular Hemoglobin 30.4 PG Mean Corpuscular Hemoglobin Concent 33.8 % Red Cell Distribution Width 17.4 % Platelet Count 258 TH/MM3 Mean Platelet Volume 7.7 FL Neutrophils (%) (Auto) 75.6 % Lymphocytes (%) (Auto) 13.3 % Monocytes (%) (Auto) 9.6 % Eosinophils (%) (Auto) 0.8 % Basophils (%) (Auto) 0.7 % Neutrophils # (Auto) 3.0 TH/MM3 Lymphocytes # (Auto) 0.5 TH/MM3 Monocytes # (Auto) 0.4 TH/MM3 Eosinophils # (Auto) 0.0 TH/MM3 Basophils # (Auto) 0.0 TH/MM3 CBC Comment DIFF FINAL Differential Comment Prothrombin Time 18.3 SEC Prothromb Time International Ratio 1.6 RATIO Blood Urea Nitrogen 4 MG/DL Creatinine 0.52 MG/DL Random Glucose 68 MG/DL Total Protein 5.5 GM/DL Calcium Level 7.2 MG/DL Sodium Level 141 MEQ/L Potassium Level 3.4 MEQ/L Chloride Level 109 MEQ/L Carbon Dioxide Level 24.1 MEQ/L Anion Gap 8 MEQ/L Estimat Glomerular Filtration Rate 205 ML/MIN Protein Corrected Calcium 8.1 MG/DL Administered Medications Medications (Trade) Dose Ordered Sig/Shyla Route PRN Reason Start Time Stop Time Status Last Admin Dose Admin Sodium Chloride (NS Flush) 2 ml UNSCH PRN IV FLUSH FLUSH AFTER USING IV ACCESS 04/18/17 17:30 06/03/17 10:26 Hydralazine HCl (Apresoline Inj) 10 mg Q6HR PRN IV PUSH SBP>160, DBP>90 04/21/17 17:00 04/27/17 10:15 Nifedipine (Procardia Xl) 90 mg DAILY PO 04/28/17 09:00 06/05/17 09:15 Clonidine (Catapres) 0.1 mg Q6H PRN PO SBP>160, DBP>90 04/27/17 15:00 04/29/17 08:07 Ondansetron HCl (Zofran Inj) 4 mg Q6HR PRN IV PUSH NAUSEA OR VOMITING 04/30/17 11:30 05/07/17 10:06 Promethazine HCl (Phenergan Inj) 25 mg Q6H PRN IM NAUSEA OR VOMITING 04/30/17 11:30 05/01/17 13:27 Acetaminophen/ Hydrocodone Bitart (Dowagiac 5-325 Mg) 1 tab Q6H PRN PO PAIN SCALE 1 TO 10 04/30/17 11:30 05/12/17 02:48 Chlorhexidine Gluconate (Peridex 0.12% Liq) 15 ml BID@08,20 MT 05/02/17 20:00 06/02/17 09:27 Albuterol/ Ipratropium (Duoneb Neb) 1 ampule Q2HR NEB PRN INH WHEEZING 05/02/17 10:00 05/08/17 08:08 Miscellaneous Information Patient in critical care unit? Ass... [id number] .XX 05/02/17 17:15 05/02/17 17:30 Pantoprazole Sodium (Protonix Inj) 40 mg DAILY IV PUSH 05/07/17 12:00 06/05/17 09:15 Artificial Tears (Lacrilube Opht Oint) 1 applic Q8H EACH EYE 05/07/17 18:00 06/03/17 19:02 Sodium Chloride 1,000 ml @ 0 mls/hr TITRATE PRN IV WITH DIALYSIS 05/07/17 18:00 05/22/17 12:08 Sodium Chloride 1,000 ml @ 200 mls/hr Q5H PRN IV WITH DIALYSIS 05/07/17 18:00 05/25/17 10:29 Sodium Chloride (NS Flush) 5 ml UNSCH PRN IV FLUSH WITH DIALYSIS 05/07/17 18:00 05/25/17 03:50 Heparin Sodium (Porcine) (Heparin Inj) Dwell Heparin to f... UNSCH PRN OTHER WITH DIALYSIS 05/07/17 18:00 05/25/17 10:31 Gentamicin Sulfate (Gentamicin (Dialysis) Inj) 10 mg UNSCH PRN OTHER WITH DIALYSIS 05/07/17 18:00 05/25/17 10:29 Dronabinol (Marinol) 5 mg BID@11,16 PO 05/14/17 16:00 06/04/17 14:13 Sodium Chloride (NS Flush) UNSCH PRN IVF SEE PROTOCOL 05/15/17 16:00 05/25/17 03:51 Epoetin Oleksandr (Epogen Inj) 10,000 units UNSCH PRN IV WITH DIALYSIS 05/21/17 18:30 05/25/17 10:30 Sodium Chloride (NS Flush) 5 ml UNSCH PRN IV FLUSH SEE PROTOCOL TABLE 05/24/17 06:45 05/25/17 03:51 Heparin Sodium (Porcine) (Heparin Central Flush) 250 units UNSCH PRN IV FLUSH SEE PROTOCOL TABLE 05/24/17 06:45 06/02/17 05:14 Allopurinol (Zyloprim) 300 mg DAILY PO 05/28/17 09:00 06/05/17 09:15 Magnesium Oxide (Mag-Ox) 400 mg Q12HR PO 05/28/17 09:00 06/05/17 09:15 Multi-Ingredient Ointment (Eucerin Cream) 1 applic Q6H PRN TOPICAL DRY SKIN 05/31/17 14:00 05/31/17 17:46 Potassium Phos/ Sodium Phos (K-Phos Neutral) 250 mg Q8HR PO 06/01/17 08:15 06/05/17 06:20 Warfarin Sodium (Coumadin) 5 mg DAILY@1600 PO 06/03/17 16:00 06/04/17 17:36 Enoxaparin Sodium (Lovenox Inj) 60 mg Q12H SQ 06/03/17 13:00 06/04/17 14:13 Objective Remarks GENERAL: Weak, thin appearing middle-aged male resting in bed in no distress SKIN: Warm and dry. Xerosis. HEAD: Normocephalic. EYES: No injection or drainage. NECK: Right supraclavicular LN prominent. LYMPHATIC: Left axillary mass prominent and firm. CARDIOVASCULAR: Regular rate and rhythm without murmurs. RESPIRATORY: Breath sounds equal bilaterally. No accessory muscle use. GASTROINTESTINAL: Abdomen soft, non-tender, nondistended. EXTREMITIES: No cyanosis, or edema. NEUROLOGICAL: No obvious focal deficit. Awake, alert, and oriented x3. 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 --Received Rituxan x1. --Neck adenopathy relatively stable. --05/18-->CHOP chemotherapy --The neck and axillary mass are more prominent worrisome for progression of disease -- Plan to give him Rituxan and EPOCH chemotherapy on 06/08. (2) Pulmonary emboli ICD Codes: I26.99 - Other pulmonary embolism without acute cor pulmonale Status: Acute Plan: --on coumadin --CTA showed large PE --s/p tpa therapy on 7.2 --Continue Lovenox; INR subtherapeutic. (3) Normocytic anemia ICD Codes: D64.9 - Anemia, unspecified Status: Acute Plan: --multifactorial due to chronic disease, renal failure --monitor and transfuse as needed (4) ALDO (acute kidney injury) ICD Codes: N17.9 - Acute kidney failure, unspecified Status: Resolved Plan: --creatinine significantly improved. Assessment 47y/o male admitted with pancreatitis, found to have NHL. Have some response to R_CHOP but the masses seems more prominent again worrisome for progression of disease. Plan 1. Lovenox twice a day until INR is therapeutic for 2 days 2. Increase Coumadin to 6 mg by mouth daily 3. Monitor labs Attending Statement The exam, history, and the medical decision-making described in the above note were completed with the assistance of the mid-level provider. I reviewed and agree with the findings presented. I attest that I had a [id number] encounter with the patient on the same day, and personally performed and documented my assessment and findings in the medical record. No new c/o. Left axillary mass is firm. Plan to start chemo on Thursday. Continue anticoagulation. Problem Qualifiers (1) Non-Hodgkin lymphoma: Tia Montenegro Jun 05, 2017 10:45 Ruslan Connelly MD Jun 05, 2017 15:44
[2017-06-05] MEDS: DRONABINOL 5 MG CAP PO SCH ×2 (11:59→15:49)
[2017-06-05] MEDS ORDERED: WARFARIN SOD 5 MG TAB PO ONE ×2 (16:00)
[2017-06-06] VITALS (7 sets, daily range): BP systolic 110–138; BP diastolic 69–91; PULSE 77–92; RESP 16–20; TEMP 97.2–98.3; O2SAT 97–100
[2017-06-06] MEDS: ARTIFICIAL TEARS OPTH OINT 3.5 APPLIC/3.5 GM TUBO EACH EYE SCH ×3 (02:00→18:00)
[2017-06-06] MEDS: ENOXAPARIN SODIUM 60 MG/0.6 ML SYRINGE SQ SCH ×2 (02:48→13:42)
[2017-06-06] MEDS: POTASSIUM PHOSPHATE/SODIUM PHOSPHATE 250 MG TAB PO SCH ×3 (05:43→21:16)
[2017-06-06 08:38] LABS: INTERNATIONAL NORMALIZED RATIO 1.6 RATIO; PROTHROMBIN TIME - PATIENT 18.6 SEC (9.8-11.6)
[2017-06-06] MEDS: NIFEdipine 90 MG SUSTAINED RELEASE TAB PO SCH (09:17)
[2017-06-06] MEDS: ALLOPURINOL 300 MG TAB PO SCH (09:17)
[2017-06-06] MEDS: SODIUM CHLORIDE 0.9% FLUSH 10 ML FLUSH IV FLUSH PRN (09:18)
[2017-06-06] MEDS: PANTOPRAZOLE SODIUM 40 MG VIAL IV PUSH SCH (09:18)
[2017-06-06] MEDS: MAGNESIUM OXIDE 400 MG TAB PO SCH ×2 (09:18→21:16)
--- NOTE | 2017-06-06 13:33 | HHI.PR ---
Subjective Remarks Resting in bed, no acute issue, induction chemotherapy on Thursday Objective Vitals Vital Signs Date Time Temp Pulse Resp B/P (MAP) Pulse Ox O2 Delivery O2 Flow Rate FiO2 06/06/17 12:00 98.0 90 16 131/91 (104) 100 06/06/17 08:00 97.9 81 16 138/91 (107) 99 06/06/17 04:00 97.2 77 18 128/87 (101) 100 06/06/17 00:00 98.2 92 18 110/69 (83) 97 06/05/17 19:52 98.3 93 20 141/82 (101) 99 06/05/17 19:21 84 06/05/17 16:00 98.5 87 16 147/79 (101) 99 I/O 06/05/17 06/05/17 06/05/17 06/06/17 06/06/17 06/06/17 07:00 15:00 23:00 07:00 15:00 23:00 Intake Total 720 ml Output Total 700 ml 875 ml Balance -700 ml -155 ml Intake Oral 720 ml Output Urine Total 700 ml 875 ml Result Diagram: 06/05/1762506/05/17625 Objective Remarks GENERAL: This is a well-nourished, well-developed patient, in no apparent distress. SKIN: No rashes, warm and dry HEAD: Atraumatic. Normocephalic. EYES: Pupils equal round and reactive. Extraocular motions intact. No scleral icterus. ENT: Nose without bleeding, or drainage, Airway patent. NECK: Trachea midline. Supple CARDIOVASCULAR: Regular rate and rhythm without murmurs, gallops, or rubs. RESPIRATORY: Fair air entry bilaterally. No wheezes, rales, or rhonchi. GASTROINTESTINAL: Abdomen soft, non-tender, nondistended. Positive bowel sounds MUSCULOSKELETAL: Extremities without clubbing, cyanosis, or edema. Pedal pulses appreciated NEUROLOGICAL: Awake and alert. Moves all extremity. Normal speech.no focal neurological deficit Procedures 04/[address] excision biopsy 04/27- port placement 05/02-TPA 05/06-left IJ Vas-Cath placement endotracheal intubation A/P Problem List: (1) Acute pancreatitis ICD Code: K85.90 - Acute pancreatitis without necrosis or infection, unspecified Status: Resolved (2) Transaminitis ICD Code: R74.0 - Nonspecific elevation of levels of transaminase and lactic acid dehydrogenase [LDH] Status: Acute (3) ALDO (acute kidney injury) ICD Code: N17.9 - Acute kidney failure, unspecified Status: Resolved (4) Pleural effusion ICD Code: J90 - Pleural effusion, not elsewhere classified Status: Acute Assessment and Plan 06/05: Stable, plan for chemotherapy on Thursday her hematology oncology 06/06: No acute issue, chemoon Thursday A/P: Acute Hypoxic Respiratory Failure Acute Submassive Pulmonary Embolism Right Heart Dysfunction Global severe left ventricular systolic dysfunction Cardiogenic Shock-resolved -- 2d echo 05/02: EF 30-35%, RV dysfunction with dilation --Repeat ECHO limited study scheduled on 05/09-RV function appears to have normalized, question of interatrial shunt for which cardiology consulted- cards recommended that once off anticoagulation, would need to be on ASA and require f/u echo periodically for evaluation. Acute Kidney Injury-resolved. Hypokalemia-replaced. hypomagnesemia- improved. -- likely secondary to cardiogenic shock -HD was discontinued. - s/p vas-cath removal- nephrology has signed off. Hyperphosphatemia-resolved. protein calorie malnutrition- severe ileus-resolved. -picking belt operator following; recommended alternative form of nutrition - PEG was discussed with the patient which he again declined, he states that his appetite is better now , send this patient therapy, regular diet with thin liquids. Large Cell B-cell lymphoma leukopenia Pulmonary Embolism anemia of chronic disease -- hematology/oncology following Dr. Connelly- - received chemo CHOP regimen. -plan for EPOCH chemotherapy on Thursday as inpatient. -INR subtherapeutic, continue Coumadin, colored Lovenox was subtherapeutic, recheck INR tomorrow. C. difficile colitis --finished the course of Vanco and Flagyl- DVT Prophylaxis: coumadin, Lovenox was subtherapeutic Discharge Planning Will keep inpatient to finish chemotherapy. Discharge once cleared by hematology. Problem Qualifiers (1) Acute pancreatitis: Tereso Foote MD Jun 06, 2017 13:33
[2017-06-06] MEDS: DRONABINOL 5 MG CAP PO SCH ×2 (13:41→16:00)
[2017-06-06] MEDS: WARFARIN SOD 6 MG TAB PO SCH (18:15)
[2017-06-06] MEDS ORDERED: SODIUM CHLORIDE 0.9% FLUSH 10 ML FLUSH IV FLUSH PRN (20:00)
[2017-06-07] VITALS (10 sets, daily range): BP systolic 127–149; BP diastolic 85–95; PULSE 75–87; RESP 14–20; TEMP 97.3–97.8; O2SAT 98–100
[2017-06-07] MEDS: ENOXAPARIN SODIUM 60 MG/0.6 ML SYRINGE SQ SCH ×2 (01:11→12:17)
[2017-06-07] MEDS: ARTIFICIAL TEARS OPTH OINT 3.5 APPLIC/3.5 GM TUBO EACH EYE SCH ×3 (02:00→17:03)
[2017-06-07] MEDS: POTASSIUM PHOSPHATE/SODIUM PHOSPHATE 250 MG TAB PO SCH ×3 (05:25→22:07)
[2017-06-07 06:36] LABS: INTERNATIONAL NORMALIZED RATIO 1.8 RATIO; PROTHROMBIN TIME - PATIENT 19.9 SEC (9.8-11.6)
[2017-06-07] MEDS: NIFEdipine 90 MG SUSTAINED RELEASE TAB PO SCH (09:43)
[2017-06-07] MEDS: MAGNESIUM OXIDE 400 MG TAB PO SCH ×2 (09:43→22:08)
[2017-06-07] MEDS: ALLOPURINOL 300 MG TAB PO SCH (09:43)
[2017-06-07] MEDS: PANTOPRAZOLE SODIUM 40 MG VIAL IV PUSH SCH (09:43)
[2017-06-07] MEDS: DRONABINOL 5 MG CAP PO SCH ×2 (12:17→17:03)
[2017-06-07] MEDS: WARFARIN SOD 6 MG TAB PO SCH (15:00)
--- NOTE | 2017-06-07 16:04 | HHI.PR ---
Subjective Remarks resting in bed no acute issue Plan for edema dose tomorrow by oncology Objective Vitals Vital Signs Date Time Temp Pulse Resp B/P (MAP) Pulse Ox O2 Delivery O2 Flow Rate FiO2 06/07/17 11:30 97.8 75 20 142/95 (111) 98 06/07/17 07:50 97.7 76 20 141/88 (105) 99 06/07/17 04:00 97.3 78 20 139/93 (108) 100 06/07/17 00:00 97.7 82 20 138/92 (107) 100 06/06/17 21:47 84 06/06/17 20:00 98.3 85 20 129/86 (100) 98 I/O 06/06/17 06/06/17 06/06/17 06/07/17 06/07/17 06/07/17 07:00 15:00 23:00 07:00 15:00 23:00 Intake Total 720 ml 960 ml 470 ml 200 ml Output Total 875 ml 600 ml 250 ml 650 ml Balance -155 ml 360 ml 220 ml -450 ml Intake Oral 720 ml 960 ml 470 ml 200 ml Output Urine Total 875 ml 600 ml 250 ml 650 ml # Bowel Movements 1 Result Diagram: 06/05/1762506/05/17625 Objective Remarks GENERAL: This is a well-nourished, well-developed patient, in no apparent distress. SKIN: No rashes, warm and dry HEAD: Atraumatic. Normocephalic. EYES: Pupils equal round and reactive. Extraocular motions intact. No scleral icterus. ENT: Nose without bleeding, or drainage, Airway patent. NECK: Trachea midline. Supple CARDIOVASCULAR: Regular rate and rhythm without murmurs, gallops, or rubs. RESPIRATORY: Fair air entry bilaterally. No wheezes, rales, or rhonchi. GASTROINTESTINAL: Abdomen soft, non-tender, nondistended. Positive bowel sounds MUSCULOSKELETAL: Extremities without clubbing, cyanosis, or edema. Pedal pulses appreciated NEUROLOGICAL: Awake and alert. Moves all extremity. Normal speech.no focal neurological deficit Procedures 04/[address] excision biopsy 04/27- port placement 05/02-TPA 05/06-left IJ Vas-Cath placement endotracheal intubation A/P Problem List: (1) Acute pancreatitis ICD Code: K85.90 - Acute pancreatitis without necrosis or infection, unspecified Status: Resolved (2) Transaminitis ICD Code: R74.0 - Nonspecific elevation of levels of transaminase and lactic acid dehydrogenase [LDH] Status: Acute (3) ALDO (acute kidney injury) ICD Code: N17.9 - Acute kidney failure, unspecified Status: Resolved (4) Pleural effusion ICD Code: J90 - Pleural effusion, not elsewhere classified Status: Acute Assessment and Plan 06/05: Stable, plan for chemotherapy on Thursday her hematology oncology 06/06: No acute issue, chemoon Thursday 06/07: No acute issue, dose of chemotherapy treatment tomorrow A/P: Acute Hypoxic Respiratory Failure Acute Submassive Pulmonary Embolism Right Heart Dysfunction Global severe left ventricular systolic dysfunction Cardiogenic Shock-resolved -- 2d echo 05/02: EF 30-35%, RV dysfunction with dilation --Repeat ECHO limited study scheduled on 05/09-RV function appears to have normalized, question of interatrial shunt for which cardiology consulted- cards recommended that once off anticoagulation, would need to be on ASA and require f/u echo periodically for evaluation. Acute Kidney Injury-resolved. Hypokalemia-replaced. hypomagnesemia- improved. -- likely secondary to cardiogenic shock -HD was discontinued. - s/p vas-cath removal- nephrology has signed off. Hyperphosphatemia-resolved. protein calorie malnutrition- severe ileus-resolved. -ship carpenter following; recommended alternative form of nutrition - PEG was discussed with the patient which he again declined, he states that his appetite is better now , send this patient therapy, regular diet with thin liquids. Large Cell B-cell lymphoma leukopenia Pulmonary Embolism anemia of chronic disease -- hematology/oncology following Dr. Connelly- - received chemo CHOP regimen. -plan for EPOCH chemotherapy on Thursday as inpatient. -INR subtherapeutic, continue Coumadin, colored Lovenox was subtherapeutic, recheck INR tomorrow. C. difficile colitis --finished the course of Vanco and Flagyl- DVT Prophylaxis: coumadin, Lovenox was subtherapeutic Discharge Planning Will keep inpatient to finish chemotherapy. Discharge once cleared by hematology. Problem Qualifiers (1) Acute pancreatitis: Tereso Foote MD Jun 07, 2017 16:04
[2017-06-08] VITALS (15 sets, daily range): BP systolic 122–147; BP diastolic 88–99; PULSE 77–95; RESP 16–17; TEMP 97–98.4; O2SAT 96–99
[2017-06-08] MEDS: ENOXAPARIN SODIUM 60 MG/0.6 ML SYRINGE SQ SCH ×2 (00:46→12:44)
[2017-06-08] MEDS: ARTIFICIAL TEARS OPTH OINT 3.5 APPLIC/3.5 GM TUBO EACH EYE SCH ×3 (01:46→16:07)
[2017-06-08] MEDS: POTASSIUM PHOSPHATE/SODIUM PHOSPHATE 250 MG TAB PO SCH ×3 (05:58→20:38)
[2017-06-08 07:03] LABS: AUTOMATED NEUTROPHIL # 3.2 TH/MM3 (1.8-7.7); BASOPHIL # 0.1 TH/MM3 (0-0.2); BASOPHIL % 1.2 % (0.0-2.0); EOSINOPHIL % 0.4 % (0.0-4.0); HEMATOCRIT 30.4 % (39.0-51.0); HEMO FLAGS DIFF FINAL; LYMPH % 13.5 % (9.0-44.0); LYMPHOCYTE # 0.6 TH/MM3 (1.0-4.8); MEAN CELL VOLUME 90.7 FL (80.0-100.0); NEUT % 75.9 % (16.0-70.0); PLATELET COUNT 293 TH/MM3 (150-450); RED BLOOD COUNT 3.36 MIL/MM3 (4.50-5.90); RED CELL DISTRIBUTION WIDTH 17.1 % (11.6-17.2); WHITE BLOOD COUNT 4.2 TH/MM3 (4.0-11.0)
[2017-06-08 07:10] LABS: INTERNATIONAL NORMALIZED RATIO 2.7 RATIO; PROTHROMBIN TIME - PATIENT 31.4 SEC (9.8-11.6)
--- NOTE | 2017-06-08 07:21 | PD.ONC.PN ---
Subjective Subjective Remarks No CP/SOB. No abdominal pain. No bleeding. Objective Data Date Time Temp Pulse Resp B/P (MAP) Pulse Ox O2 Delivery O2 Flow Rate FiO2 06/08/17 04:01 79 06/08/17 00:10 77 06/08/17 00:00 97.8 77 17 142/95 (111) 97 06/07/17 20:19 82 06/07/17 20:00 97.7 87 14 127/85 (99) 99 06/07/17 16:30 84 06/07/17 15:30 97.5 79 20 149/93 (111) 98 06/07/17 12:31 79 06/07/17 11:30 97.8 75 20 142/95 (111) 98 06/07/17 08:32 76 06/07/17 07:50 97.7 76 20 141/88 (105) 99 Result Diagram: 06/08/17 0600 06/05/17 0626 Laboratory Results Laboratory Tests Test 06/08/17 06:00 White Blood Count 4.2 TH/MM3 Red Blood Count 3.36 MIL/MM3 Hemoglobin 10.1 GM/DL Hematocrit 30.4 % Mean Corpuscular Volume 90.7 FL Mean Corpuscular Hemoglobin 30.0 PG Mean Corpuscular Hemoglobin Concent 33.0 % Red Cell Distribution Width 17.1 % Platelet Count 293 TH/MM3 Mean Platelet Volume 7.3 FL Neutrophils (%) (Auto) 75.9 % Lymphocytes (%) (Auto) 13.5 % Monocytes (%) (Auto) 9.0 % Eosinophils (%) (Auto) 0.4 % Basophils (%) (Auto) 1.2 % Neutrophils # (Auto) 3.2 TH/MM3 Lymphocytes # (Auto) 0.6 TH/MM3 Monocytes # (Auto) 0.4 TH/MM3 Eosinophils # (Auto) 0.0 TH/MM3 Basophils # (Auto) 0.1 TH/MM3 CBC Comment DIFF FINAL Differential Comment Prothrombin Time 31.4 SEC Prothromb Time International Ratio 2.7 RATIO Administered Medications Medications (Trade) Dose Ordered Sig/Shyla Route PRN Reason Start Time Stop Time Status Last Admin Dose Admin Sodium Chloride (NS Flush) 2 ml UNSCH PRN IV FLUSH FLUSH AFTER USING IV ACCESS 04/18/17 17:30 06/06/17 09:18 Nifedipine (Procardia Xl) 90 mg DAILY PO 7/18/17 09:00 06/07/17 09:43 Clonidine (Catapres) 0.1 mg Q6H PRN PO SBP>160, DBP>90 04/27/17 15:00 04/29/17 08:07 Ondansetron HCl (Zofran Inj) 4 mg Q6HR PRN IV PUSH NAUSEA OR VOMITING 04/30/17 11:30 05/07/17 10:06 Promethazine HCl (Phenergan Inj) 25 mg Q6H PRN IM NAUSEA OR VOMITING 04/30/17 11:30 05/01/17 13:27 Acetaminophen/ Hydrocodone Bitart ([place] 5-325 Mg) 1 tab Q6H PRN PO PAIN SCALE 1 TO 10 04/30/17 11:30 05/12/17 02:48 Albuterol/ Ipratropium (Duoneb Neb) 1 ampule Q2HR NEB PRN INH WHEEZING 05/02/17 10:00 05/08/17 08:08 Pantoprazole Sodium (Protonix Inj) 40 mg DAILY IV PUSH 05/07/17 12:00 06/07/17 09:43 Artificial Tears (Lacrilube Opht Oint) 1 applic Q8H EACH EYE 05/07/17 18:00 06/03/17 19:02 Sodium Chloride 1,000 ml @ 200 mls/hr Q5H PRN IV WITH DIALYSIS 05/07/17 18:00 05/25/17 10:29 Dronabinol (Marinol) 5 mg BID@11,16 PO 05/14/17 16:00 06/07/17 17:03 Allopurinol (Zyloprim) 300 mg DAILY PO 05/28/17 09:00 06/07/17 09:43 Magnesium Oxide (Mag-Ox) 400 mg Q12HR PO 05/28/17 09:00 06/07/17 22:08 Multi-Ingredient Ointment (Eucerin Cream) 1 applic Q6H PRN TOPICAL DRY SKIN 05/31/17 14:00 05/31/17 17:46 Potassium Phos/ Sodium Phos (K-Phos Neutral) 250 mg Q8HR PO 06/01/17 08:15 06/08/17 05:58 Enoxaparin Sodium (Lovenox Inj) 60 mg Q12H SQ 06/03/17 13:00 06/08/17 00:46 Warfarin Sodium (Coumadin) 6 mg DAILY@1600 PO 06/06/17 16:00 06/07/17 15:00 Heparin Sodium (Porcine) (Heparin Central Flush) 500 units UNSCH IV FLUSH 06/06/17 20:00 06/06/17 21:17 Objective Remarks GENERAL: Well-nourished, well-developed patient. Stronger SKIN: Warm and dry. HEAD: Normocephalic. EYES: No scleral icterus. No injection or drainage. NECK: Supple, trachea midline. No JVD or lymphadenopathy. LYMPHATIC: Right neck and left axillary mass CARDIOVASCULAR: Regular rate and rhythm without murmurs. RESPIRATORY: Breath sounds equal bilaterally. No accessory muscle use. GASTROINTESTINAL: Abdomen soft, non-tender, nondistended. EXTREMITIES: No cyanosis, or edema. MUSCULOSKELETAL: Adequate muscle tone. NEUROLOGICAL: No obvious focal deficit. Awake, alert, and oriented x3. PSYCHIATRIC: Appropriate mood and affect; insight and judgment normal. 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 --Received Rituxan x1. --Neck adenopathy relatively stable. --05/18-->CHOP chemotherapy --The neck and axillary mass are more prominent worrisome for progression of disease -- To start Rituxan and EPOCH chemotherapy on 06/08. (2) Pulmonary emboli ICD Codes: I26.99 - Other pulmonary embolism without acute cor pulmonale Status: Resolved Plan: --on coumadin --CTA showed large PE --s/p tpa therapy on .2 --Continue Lovenox; INR subtherapeutic. (3) Normocytic anemia ICD Codes: D64.9 - Anemia, unspecified Status: Acute Plan: --multifactorial due to chronic disease, renal failure --monitor and transfuse as needed (4) ALDO (acute kidney injury) ICD Codes: N17.9 - Acute kidney failure, unspecified Status: Resolved Plan: --creatinine significantly improved. Assessment 47y/o male admitted with pancreatitis, found to have NHL. Have some response to R_CHOP but the masses seems more prominent again worrisome for progression of disease. Plan 1. Continue Lovenox twice a day until INR is therapeutic for 2 days 2. Continue Coumadin to 6 mg by mouth daily 3. Monitor labs 4. Start Rituxan today and EPOCH tomorrow 5. Monitor for sign of tumor lysis syndrome Problem Qualifiers (1) Non-Hodgkin lymphoma: Ruslan Connelly MD Jun 08, 2017 07:20
[2017-06-08 07:28] LABS: ALT (GPT) 8 U/L (12-78); ANION GAP 10 MEQ/L (5-15); AST (GOT) 12 U/L (15-37); BICARBONATE 24.2 MEQ/L (21.0-32.0); BLOOD UREA NITROGEN 5 MG/DL (7-18); CHLORIDE 106 MEQ/L (98-107); GLOMERULAR FILTRATION RATE 150 ML/MIN (>89); MAGNESIUM 1.3 MG/DL (1.5-2.5); POTASSIUM 3.2 MEQ/L (3.5-5.1); SODIUM (NA) 140 MEQ/L (136-145); URIC ACID 2.9 MG/DL (2.6-7.2)
[2017-06-08 07:30] LABS: ALKALINE PHOSPHATASE 92 U/L (45-117); TOTAL BILIRUBIN ADULT 0.4 MG/DL (0.2-1.0)
[2017-06-08] MEDS: PANTOPRAZOLE SODIUM 40 MG VIAL IV PUSH SCH (08:40)
[2017-06-08] MEDS: NIFEdipine 90 MG SUSTAINED RELEASE TAB PO SCH (08:41)
[2017-06-08] MEDS: MAGNESIUM OXIDE 400 MG TAB PO SCH ×2 (08:41→20:38)
[2017-06-08] MEDS: ALLOPURINOL 300 MG TAB PO SCH (08:41)
[2017-06-08] MEDS: DRONABINOL 5 MG CAP PO SCH ×2 (11:18→16:15)
--- NOTE | 2017-06-08 12:02 | HHI.PR ---
Subjective Remarks Patient sleeping in bed, woke up to verbal stimuli Plan for rituximab dose today and keep by EPOCH tomorrow Monitoring for signs of tumor lysis syndrome oncology recommendation No fever or chills no chest pain no diarrhea Objective Vitals Vital Signs Date Time Temp Pulse Resp B/P (MAP) Pulse Ox O2 Delivery O2 Flow Rate FiO2 06/08/17 08:00 98.2 80 16 139/95 (110) 97 06/08/17 07:59 81 06/08/17 04:01 79 06/08/17 04:00 98.3 79 16 136/88 (104) 99 06/08/17 00:10 77 06/08/17 00:00 97.8 77 17 142/95 (111) 97 06/07/17 20:19 82 06/07/17 20:00 97.7 87 14 127/85 (99) 99 06/07/17 16:30 84 06/07/17 15:30 97.5 79 20 149/93 (111) 98 06/07/17 12:31 79 I/O 06/07/17 06/07/17 06/07/17 06/08/17 06/08/17 06/08/17 07:00 15:00 23:00 07:00 15:00 23:00 Intake Total 200 ml 240 ml Output Total 650 ml 600 ml 250 ml Balance -450 ml -360 ml -250 ml Intake Oral 200 ml 240 ml Output Urine Total 650 ml 600 ml 250 ml # Voids 1 Result Diagram: 06/08/17 0600 06/08/17 0600 Objective Remarks GENERAL: This is a well-nourished, well-developed patient, in no apparent distress. SKIN: No rashes, warm and dry HEAD: Atraumatic. Normocephalic. EYES: Pupils equal round and reactive. Extraocular motions intact. No scleral icterus. ENT: Nose without bleeding, or drainage, Airway patent. NECK: Trachea midline. Supple CARDIOVASCULAR: Regular rate and rhythm without murmurs, gallops, or rubs. RESPIRATORY: Fair air entry bilaterally. No wheezes, rales, or rhonchi. GASTROINTESTINAL: Abdomen soft, non-tender, nondistended. Positive bowel sounds MUSCULOSKELETAL: Extremities without clubbing, cyanosis, or edema. Pedal pulses appreciated NEUROLOGICAL: Awake and alert. Moves all extremity. Normal speech.no focal neurological deficit Procedures 04/[address] excision biopsy 04/27- port placement 05/02-TPA 05/06-left IJ Vas-Cath placement endotracheal intubation A/P Problem List: (1) Acute pancreatitis ICD Code: K85.90 - Acute pancreatitis without necrosis or infection, unspecified Status: Resolved (2) Transaminitis ICD Code: R74.0 - Nonspecific elevation of levels of transaminase and lactic acid dehydrogenase [LDH] Status: Acute (3) ALDO (acute kidney injury) ICD Code: N17.9 - Acute kidney failure, unspecified Status: Resolved (4) Pleural effusion ICD Code: J90 - Pleural effusion, not elsewhere classified Status: Acute Assessment and Plan 06/05: Stable, plan for chemotherapy on Thursday her hematology oncology 06/06: No acute issue, chemoon Thursday 06/07: No acute issue, dose of chemotherapy treatment tomorrow 06/08: Stable, plan for rituximab dose today, EPO CH tomorrow, close monitoring for tumor lysis syndrome. Oncology, INR 2.7, continue Lovenox bridging for 2 days INR above 2 A/P: Acute Hypoxic Respiratory Failure Acute Submassive Pulmonary Embolism Right Heart Dysfunction Global severe left ventricular systolic dysfunction Cardiogenic Shock-resolved -- 2d echo 05/02: EF 30-35%, RV dysfunction with dilation --Repeat ECHO limited study scheduled on 05/09-RV function appears to have normalized, question of interatrial shunt for which cardiology consulted- cards recommended that once off anticoagulation, would need to be on ASA and require f/u echo periodically for evaluation. Acute Kidney Injury-resolved. Hypokalemia-replaced. hypomagnesemia- improved. -- likely secondary to cardiogenic shock -HD was discontinued. - s/p vas-cath removal- nephrology has signed off. Hyperphosphatemia-resolved. protein calorie malnutrition- severe ileus-resolved. -oil fire specialist following; recommended alternative form of nutrition - PEG was discussed with the patient which he again declined, he states that his appetite is better now , send this patient therapy, regular diet with thin liquids. Large Cell B-cell lymphoma leukopenia Pulmonary Embolism anemia of chronic disease -- hematology/oncology following Dr. Connelly- - received chemo CHOP regimen. -plan for EPOCH chemotherapy on Thursday as inpatient. -INR subtherapeutic, continue Coumadin, colored Lovenox was subtherapeutic, recheck INR tomorrow. C. difficile colitis --finished the course of Vanco and Flagyl- DVT Prophylaxis: coumadin, Lovenox was subtherapeutic Discharge Planning Will keep inpatient to finish chemotherapy. Discharge once cleared by hematology. Problem Qualifiers (1) Acute pancreatitis: Tereso Foote MD Jun 08, 2017 12:02
[2017-06-08] MEDS ORDERED: diphenhydrAMINE HCL 50 MG CAP PO ONE (12:30)
[2017-06-08] MEDS ORDERED: ACETAMINOPHEN 325 MG TAB PO ONE (12:30)
[2017-06-08] MEDS: SODIUM CHLOR 0.9% 1000 ML INJ 1,000 ML IV SCH ×2 (12:43→22:28)
[2017-06-08] MEDS ORDERED: RITUXIMAB IV ONE (13:00)
[2017-06-08] MEDS ORDERED: SODIUM CHLORID 0.9% IV ONE (13:00)
[2017-06-08] MEDS: ACETAMINOPHEN/HYDROcodone 325 MG/5 MG TAB PO PRN (16:40)
[2017-06-09] VITALS (10 sets, daily range): BP systolic 108–139; BP diastolic 73–97; PULSE 82–90; RESP 16–18; TEMP 96.4–100.1; O2SAT 95–99
[2017-06-09] MEDS: ENOXAPARIN SODIUM 60 MG/0.6 ML SYRINGE SQ SCH (00:25)
[2017-06-09] MEDS: ARTIFICIAL TEARS OPTH OINT 3.5 APPLIC/3.5 GM TUBO EACH EYE SCH ×3 (01:02→17:02)
[2017-06-09 03:51] LABS: AUTOMATED NEUTROPHIL # 3.7 TH/MM3 (1.8-7.7); EOSINOPHIL % 0.1 % (0.0-4.0); HEMATOCRIT 31.9 % (39.0-51.0); HEMO FLAGS DIFF FINAL; LYMPH % 11.8 % (9.0-44.0); LYMPHOCYTE # 0.5 TH/MM3 (1.0-4.8); MEAN CELL VOLUME 89.6 FL (80.0-100.0); MEAN CORPUSCULAR HEMOGLOBIN 30.6 PG (27.0-34.0); MEAN CORPUSCULAR HGB CONC 34.2 % (32.0-36.0); MONO % 4.1 % (0.0-8.0); PLATELET COUNT 317 TH/MM3 (150-450); RED BLOOD COUNT 3.56 MIL/MM3 (4.50-5.90); RED CELL DISTRIBUTION WIDTH 17.1 % (11.6-17.2); WHITE BLOOD COUNT 4.5 TH/MM3 (4.0-11.0)
[2017-06-09 04:05] LABS: INTERNATIONAL NORMALIZED RATIO 4.1 RATIO; PROTHROMBIN TIME - PATIENT 48.2 SEC (9.8-11.6)
[2017-06-09 04:27] LABS: ALKALINE PHOSPHATASE 88 U/L (45-117); ALT (GPT) LESS THAN 6 U/L (12-78); ANION GAP 11 MEQ/L (5-15); AST (GOT) 28 U/L (15-37); BICARBONATE 24.9 MEQ/L (21.0-32.0); BLOOD UREA NITROGEN 8 MG/DL (7-18); CALCIUM-PROTEIN CORRECTED 8.2 MG/DL (8.5-10.1); CHLORIDE 106 MEQ/L (98-107); GLOMERULAR FILTRATION RATE 87 ML/MIN (>89); MAGNESIUM 1.3 MG/DL (1.5-2.5); POTASSIUM 3.3 MEQ/L (3.5-5.1); SODIUM (NA) 142 MEQ/L (136-145); TOTAL BILIRUBIN ADULT 0.5 MG/DL (0.2-1.0); URIC ACID 3.6 MG/DL (2.6-7.2)
[2017-06-09] MEDS: POTASSIUM PHOSPHATE/SODIUM PHOSPHATE 250 MG TAB PO SCH ×3 (05:14→21:06)
[2017-06-09] MEDS: PANTOPRAZOLE SODIUM 40 MG VIAL IV PUSH SCH (08:29)
[2017-06-09] MEDS: NIFEdipine 90 MG SUSTAINED RELEASE TAB PO SCH (08:29)
[2017-06-09] MEDS: ALLOPURINOL 300 MG TAB PO SCH (08:29)
[2017-06-09] MEDS: MAGNESIUM OXIDE 400 MG TAB PO SCH ×2 (08:29→20:05)
[2017-06-09] MEDS: SODIUM CHLOR 0.9% 1000 ML INJ 1,000 ML IV SCH ×2 (08:30→22:20)
[2017-06-09] MEDS ORDERED: POTASSIUM CHLORIDE 20 MEQ CONTROLLED RELEASE TAB PO ONE (10:15)
[2017-06-09] MEDS: MAGNESIUM SULFATE 1 GM PREMIX 100 ML IV SCH ×2 (10:26→11:25)
[2017-06-09] MEDS: predniSONE 50 MG TAB PO SCH ×2 (11:25→22:20)
[2017-06-09] MEDS: predniSONE 10 MG TAB PO SCH ×2 (11:25→22:20)
[2017-06-09] MEDS: DRONABINOL 5 MG CAP PO SCH ×2 (11:26→17:03)
--- NOTE | 2017-06-09 11:32 | HHI.PR ---
Subjective Remarks Patient resting in bed denied pain short of breath or fever or chills He had dose of Rituxan yesterday plan for EP OCH later by oncology Objective Vitals Vital Signs Date Time Temp Pulse Resp B/P (MAP) Pulse Ox O2 Delivery O2 Flow Rate FiO2 06/09/17 08:00 98.2 83 16 139/96 (110) 96 06/09/17 04:00 98.3 85 16 133/92 (106) 97 06/09/17 04:00 84 06/09/17 00:09 100.1 90 16 136/97 (110) 98 06/09/17 00:00 90 06/08/17 20:55 98.4 95 16 122/90 (101) 99 06/08/17 20:00 94 06/08/17 16:25 97.0 84 16 126/88 (101) 97 06/08/17 16:02 85 06/08/17 14:58 91 128/93 (105) 06/08/17 14:19 83 123/90 (101) 06/08/17 13:24 83 131/88 (102) 06/08/17 12:11 82 06/08/17 12:00 97.7 78 16 147/99 (115) 96 I/O 06/08/17 06/08/17 06/08/17 06/09/17 06/09/17 06/09/17 07:00 15:00 23:00 07:00 15:00 23:00 Intake Total 240 ml 200 ml 100 ml Output Total 600 ml 425 ml 500 ml Balance -360 ml -425 ml 200 ml -400 ml Intake Oral 240 ml 200 ml IV Total 100 ml Output Urine Total 600 ml 425 ml 500 ml # Voids 1 # Bowel Movements 1 Result Diagram: 06/09/17 03306/09/17 0330 Objective Remarks GENERAL: This is a well-nourished, well-developed patient, in no apparent distress. SKIN: No rashes, warm and dry HEAD: Atraumatic. Normocephalic. EYES: Pupils equal round and reactive. Extraocular motions intact. No scleral icterus. ENT: Nose without bleeding, or drainage, Airway patent. NECK: Trachea midline. Supple CARDIOVASCULAR: Regular rate and rhythm without murmurs, gallops, or rubs. RESPIRATORY: Fair air entry bilaterally. No wheezes, rales, or rhonchi. GASTROINTESTINAL: Abdomen soft, non-tender, nondistended. Positive bowel sounds MUSCULOSKELETAL: Extremities without clubbing, cyanosis, or edema. Pedal pulses appreciated NEUROLOGICAL: Awake and alert. Moves all extremity. Normal speech.no focal neurological deficit Procedures 04/[address] excision biopsy 04/27- port placement 05/02-TPA 05/06-left IJ Vas-Cath placement endotracheal intubation A/P Problem List: (1) Acute pancreatitis ICD Code: K85.90 - Acute pancreatitis without necrosis or infection, unspecified Status: Resolved (2) Transaminitis ICD Code: R74.0 - Nonspecific elevation of levels of transaminase and lactic acid dehydrogenase [LDH] Status: Acute (3) ALDO (acute kidney injury) ICD Code: N17.9 - Acute kidney failure, unspecified Status: Resolved (4) Pleural effusion ICD Code: J90 - Pleural effusion, not elsewhere classified Status: Acute Assessment and Plan 06/05: Stable, plan for chemotherapy on Thursday her hematology oncology 06/06: No acute issue, chemoon Thursday 06/07: No acute issue, dose of chemotherapy treatment tomorrow 06/08: Stable, plan for rituximab dose today, EPO CH tomorrow, close monitoring for tumor lysis syndrome. Oncology, INR 2.7, continue Lovenox bridging for 2 days INR above 2 06/09: Tolerated Rituxan well, plan to continue with EPO CH by oncology, hypomagnesemia and hypokalemia, replace and repeat in a.m., watch for any tumor lysis syndrome A/P: Acute Hypoxic Respiratory Failure Acute Submassive Pulmonary Embolism Right Heart Dysfunction Global severe left ventricular systolic dysfunction Cardiogenic Shock-resolved -- 2d echo 05/02: EF 30-35%, RV dysfunction with dilation --Repeat ECHO limited study scheduled on 05/09-RV function appears to have normalized, question of interatrial shunt for which cardiology consulted- cards recommended that once off anticoagulation, would need to be on ASA and require f/u echo periodically for evaluation. Acute Kidney Injury-resolved. Hypokalemia-replaced. hypomagnesemia- improved. -- likely secondary to cardiogenic shock -HD was discontinued. - s/p vas-cath removal- nephrology has signed off. Hyperphosphatemia-resolved. protein calorie malnutrition- severe ileus-resolved. -child care assistant following; recommended alternative form of nutrition - PEG was discussed with the patient which he again declined, he states that his appetite is better now , send this patient therapy, regular diet with thin liquids. Large Cell B-cell lymphoma leukopenia Pulmonary Embolism anemia of chronic disease -- hematology/oncology following Dr. Connelly- - received chemo CHOP regimen. -plan for EPOCH chemotherapy on Thursday as inpatient. -INR subtherapeutic, continue Coumadin, colored Lovenox was subtherapeutic, recheck INR tomorrow. C. difficile colitis --finished the course of Vanco and Flagyl- DVT Prophylaxis: coumadin, Lovenox was subtherapeutic Discharge Planning Will keep inpatient to finish chemotherapy. Discharge once cleared by hematology. Problem Qualifiers (1) Acute pancreatitis: Tereso Foote MD Jun 09, 2017 11:32
[2017-06-09] MEDS: GRANISETRON INJ 1 MG, DEXAMETHASONE INJ 20 MG in SODIUM CHLORIDE 0.9% INJ 50 ML IV SCH (12:36)
--- NOTE | 2017-06-09 13:01 | PD.ONC.PN ---
Subjective Subjective Remarks Afebrile Tolerating chemotherapy Denies shortness of breath, chest pain Objective Data Date Time Temp Pulse Resp B/P (MAP) Pulse Ox O2 Delivery O2 Flow Rate FiO2 06/09/17 08:00 98.2 83 16 139/96 (110) 96 06/09/17 04:00 98.3 85 16 133/92 (106) 97 06/09/17 04:00 84 06/09/17 00:09 100.1 90 16 136/97 (110) 98 06/09/17 00:00 90 06/08/17 20:55 98.4 95 16 122/90 (101) 99 06/08/17 20:00 94 06/08/17 16:25 97.0 84 16 126/88 (101) 97 06/08/17 16:02 85 06/08/17 14:58 91 128/93 (105) 06/08/17 14:19 83 123/90 (101) 06/08/17 13:24 83 131/88 (102) 06/09/17 06/09/17 06/09/17 06:59 14:59 22:59 Intake Total 100 ml Output Total 500 ml Balance -400 ml Result Diagram: 06/09/17 0330 06/09/17 0330 Laboratory Results Laboratory Tests Test 06/09/17 03:30 White Blood Count 4.5 TH/MM3 Red Blood Count 3.56 MIL/MM3 Hemoglobin 10.9 GM/DL Hematocrit 31.9 % Mean Corpuscular Volume 89.6 FL Mean Corpuscular Hemoglobin 30.6 PG Mean Corpuscular Hemoglobin Concent 34.2 % Red Cell Distribution Width 17.1 % Platelet Count 317 TH/MM3 Mean Platelet Volume 7.5 FL Neutrophils (%) (Auto) 83.0 % Lymphocytes (%) (Auto) 11.8 % Monocytes (%) (Auto) 4.1 % Eosinophils (%) (Auto) 0.1 % Basophils (%) (Auto) 1.0 % Neutrophils # (Auto) 3.7 TH/MM3 Lymphocytes # (Auto) 0.5 TH/MM3 Monocytes # (Auto) 0.2 TH/MM3 Eosinophils # (Auto) 0.0 TH/MM3 Basophils # (Auto) 0.0 TH/MM3 CBC Comment DIFF FINAL Differential Comment Prothrombin Time 48.2 SEC Prothromb Time International Ratio 4.1 RATIO Blood Urea Nitrogen 8 MG/DL Creatinine 1.09 MG/DL Random Glucose 81 MG/DL Total Protein 5.7 GM/DL Albumin 2.1 GM/DL Calcium Level 7.4 MG/DL Phosphorus Level 4.4 MG/DL Magnesium Level 1.3 MG/DL Uric Acid 3.6 MG/DL Alkaline Phosphatase 88 U/L Aspartate Amino Transf (AST/SGOT) 28 U/L Alanine Aminotransferase (ALT/SGPT) LESS THAN 6 U/L Total Bilirubin 0.5 MG/DL Sodium Level 142 MEQ/L Potassium Level 3.3 MEQ/L Chloride Level 106 MEQ/L Carbon Dioxide Level 24.9 MEQ/L Anion Gap 11 MEQ/L Estimat Glomerular Filtration Rate 87 ML/MIN Protein Corrected Calcium 8.2 MG/DL Administered Medications Medications (Trade) Dose Ordered Sig/Shyla Route PRN Reason Start Time Stop Time Status Last Admin Dose Admin Sodium Chloride (NS Flush) 2 ml UNSCH PRN IV FLUSH FLUSH AFTER USING IV ACCESS 04/18/17 17:30 06/06/17 09:18 Nifedipine (Procardia Xl) 90 mg DAILY PO 04/28/17 09:00 06/09/17 08:29 Clonidine (Catapres) 0.1 mg Q6H PRN PO SBP>160, DBP>90 04/27/17 15:00 04/29/17 08:07 Ondansetron HCl (Zofran Inj) 4 mg Q6HR PRN IV PUSH NAUSEA OR VOMITING 04/30/17 11:30 05/07/17 10:06 Promethazine HCl (Phenergan Inj) 25 mg Q6H PRN IM NAUSEA OR VOMITING 04/30/17 11:30 05/01/17 13:27 Acetaminophen/ Hydrocodone Bitart ([place] 5-325 Mg) 1 tab Q6H PRN PO PAIN SCALE 1 TO 10 04/30/17 11:30 06/08/17 16:40 Albuterol/ Ipratropium (Duoneb Neb) 1 ampule Q2HR NEB PRN INH WHEEZING 05/02/17 10:00 05/08/17 08:08 Pantoprazole Sodium (Protonix Inj) 40 mg DAILY IV PUSH 05/07/17 12:00 06/09/17 08:29 Artificial Tears (Lacrilube Opht Oint) 1 applic Q8H EACH EYE 05/07/17 18:00 06/03/17 19:02 Sodium Chloride 1,000 ml @ 200 mls/hr Q5H PRN IV WITH DIALYSIS 05/07/17 18:00 05/25/17 10:29 Dronabinol (Marinol) 5 mg BID@11,16 PO 05/14/17 16:00 06/09/17 11:26 Allopurinol (Zyloprim) 300 mg DAILY PO 05/28/17 09:00 06/09/17 08:29 Magnesium Oxide (Mag-Ox) 400 mg Q12HR PO 05/28/17 09:00 06/09/17 08:29 Multi-Ingredient Ointment (Eucerin Cream) 1 applic Q6H PRN TOPICAL DRY SKIN 05/31/17 14:00 05/31/17 17:46 Potassium Phos/ Sodium Phos (K-Phos Neutral) 250 mg Q8HR PO 06/01/17 08:15 06/09/17 05:14 Warfarin Sodium (Coumadin) 6 mg DAILY@1600 PO 06/06/17 16:00 Future Hold 06/07/17 15:00 Heparin Sodium (Porcine) (Heparin Central Flush) 500 units UNSCH IV FLUSH 06/06/17 20:00 06/06/17 21:17 Prednisone (Deltasone) 100 mg Q12H PO 06/09/17 11:00 06/13/17 23:01 06/09/17 11:25 Prednisone (Deltasone) 10 mg Q12H PO 06/09/17 11:00 06/13/17 23:01 06/09/17 11:25 Sodium Chloride 1,000 ml @ 75 mls/hr [id number] IV 06/09/17 09:00 06/09/17 08:30 Granisetron HCl 1 mg/Dexamethasone Sodium Phosphate 20 mg/Sodium Chloride 56 ml @ 224 mls/hr DAILY@1230 IV 06/09/17 12:30 06/12/17 12:44 06/09/17 12:36 Magnesium Sulfate/ Dextrose 100 ml @ 100 mls/hr Q1H IV 06/09/17 11:00 06/09/17 12:59 06/09/17 11:25 Objective Remarks GENERAL: Weak, thin appearing middle-aged male resting in bed in no distress SKIN: Warm and dry. Xerosis. HEAD: Normocephalic. EYES: No injection or drainage. NECK: Right supraclavicular LN prominent. LYMPHATIC: Left axillary mass prominent and firm. CARDIOVASCULAR: Regular rate and rhythm without murmurs. RESPIRATORY: Breath sounds equal bilaterally. No accessory muscle use. GASTROINTESTINAL: Abdomen soft, non-tender, nondistended. EXTREMITIES: No cyanosis, or edema. NEUROLOGICAL: No obvious focal deficit. Awake, alert, and oriented x3. 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 --Received Rituxan x1. --Neck adenopathy relatively stable. --05/18-->CHOP chemotherapy --The neck and axillary mass are more prominent worrisome for progression of disease -- R-EPOCH chemotherapy started on 06/08. (2) Pulmonary emboli ICD Codes: I26.99 - Other pulmonary embolism without acute cor pulmonale Status: Resolved Plan: --Coumadin on hold --CTA showed large PE --s/p tpa therapy on 7.2 --INR currently supra therapeutic (3) Normocytic anemia ICD Codes: D64.9 - Anemia, unspecified Status: Acute Plan: --multifactorial due to chronic disease, renal failure --monitor and transfuse as needed (4) ALDO (acute kidney injury) ICD Codes: N17.9 - Acute kidney failure, unspecified Status: Resolved Plan: --creatinine significantly improved. Assessment 47y/o male admitted with pancreatitis, found to have NHL. Have some response to R_CHOP but the masses seems more prominent again worrisome for progression of disease. Plan 1. Continue chemotherapy 2. Stop Lovenox and place Coumadin on hold 3. Magnesium and potassium replacement ordered by attending 4. Monitor labs, monitor for tumor lysis syndrome Attending Statement The exam, history, and the medical decision-making described in the above note were completed with the assistance of the mid-level provider. I reviewed and agree with the findings presented. I attest that I had a [id number] encounter with the patient on the same day, and personally performed and documented my assessment and findings in the medical record. Tolerated Rituxan well yesterday. Had some chest wall pain which has resolved. The right neck and left axillary mass are smaller today. Will start EPOCH today. Start IVF hydration. No evidence of TLS. Problem Qualifiers (1) Non-Hodgkin lymphoma: Tia Montenegro Jun 09, 2017 13:01 Ruslan Connelly MD Jun 09, 2017 16:50
[2017-06-09] MEDS: [UNRECOGNIZED DRUG - OTHER] IV SCH (13:10)
[2017-06-09] MEDS: DOXORUBICIN IV SCH (13:10)
[2017-06-09] MEDS: ETOPOSIDE IV SCH (13:10)
[2017-06-09] MEDS: VINCRISTINE IV SCH (13:10)
[2017-06-09] MEDS ORDERED: GRANISETRON INJ 1 MG, DEXAMETHASONE INJ 20 MG in SODIUM CHLORIDE 0.9% INJ 50 ML IV SCH (14:30)
[2017-06-09] MEDS ORDERED: ETOPOSIDE IV SCH (15:00)
[2017-06-09] MEDS ORDERED: DOXORUBICIN IV SCH (15:00)
[2017-06-09] MEDS ORDERED: [UNRECOGNIZED DRUG - OTHER] IV SCH (15:00)
[2017-06-09] MEDS ORDERED: VINCRISTINE IV SCH (15:00)
[2017-06-09] MEDS: ACETAMINOPHEN/HYDROcodone 325 MG/5 MG TAB PO PRN (22:19)
[2017-06-10] VITALS (11 sets, daily range): BP systolic 110–146; BP diastolic 58–99; PULSE 80–99; RESP 16–18; TEMP 95.4–96.9; O2SAT 95–100
[2017-06-10] MEDS: ARTIFICIAL TEARS OPTH OINT 3.5 APPLIC/3.5 GM TUBO EACH EYE SCH ×3 (01:09→18:00)
[2017-06-10] MEDS: POTASSIUM PHOSPHATE/SODIUM PHOSPHATE 250 MG TAB PO SCH ×3 (05:19→21:41)
[2017-06-10 05:52] LABS: AUTOMATED NEUTROPHIL # 2.1 TH/MM3 (1.8-7.7); BASOPHIL % 0.2 % (0.0-2.0); HEMATOCRIT 30.3 % (39.0-51.0); HEMO FLAGS DIFF FINAL; LYMPH % 11.5 % (9.0-44.0); LYMPHOCYTE # 0.3 TH/MM3 (1.0-4.8); MEAN CORPUSCULAR HEMOGLOBIN 30.4 PG (27.0-34.0); MEAN CORPUSCULAR HGB CONC 33.8 % (32.0-36.0); MONO % 1.7 % (0.0-8.0); NEUT % 86.6 % (16.0-70.0); PLATELET COUNT 306 TH/MM3 (150-450); RED BLOOD COUNT 3.36 MIL/MM3 (4.50-5.90); RED CELL DISTRIBUTION WIDTH 17.2 % (11.6-17.2); WHITE BLOOD COUNT 2.4 TH/MM3 (4.0-11.0)
[2017-06-10 05:55] LABS: INTERNATIONAL NORMALIZED RATIO 3.2 RATIO; PROTHROMBIN TIME - PATIENT 37.4 SEC (9.8-11.6)
[2017-06-10 06:20] LABS: ALKALINE PHOSPHATASE 92 U/L (45-117); ALT (GPT) 8 U/L (12-78); ANION GAP 8 MEQ/L (5-15); AST (GOT) 20 U/L (15-37); BICARBONATE 23.9 MEQ/L (21.0-32.0); BLOOD UREA NITROGEN 10 MG/DL (7-18); CHLORIDE 106 MEQ/L (98-107); GLOMERULAR FILTRATION RATE 106 ML/MIN (>89); MAGNESIUM 1.7 MG/DL (1.5-2.5); POTASSIUM 3.4 MEQ/L (3.5-5.1); SODIUM (NA) 138 MEQ/L (136-145); TOTAL BILIRUBIN ADULT 0.3 MG/DL (0.2-1.0); URIC ACID 3.5 MG/DL (2.6-7.2)
[2017-06-10] MEDS: ALLOPURINOL 300 MG TAB PO SCH (08:30)
[2017-06-10] MEDS: NIFEdipine 90 MG SUSTAINED RELEASE TAB PO SCH (08:30)
[2017-06-10] MEDS: MAGNESIUM OXIDE 400 MG TAB PO SCH ×2 (08:31→21:41)
[2017-06-10] MEDS: PANTOPRAZOLE SODIUM 40 MG VIAL IV PUSH SCH (08:31)
--- NOTE | 2017-06-10 08:53 | HHI.PR ---
Subjective Remarks Patient resting comfortably in bed denied any fever or chills short of breath Patient is on EPO CH by oncology Blood pressure slightly on the higher side 146/79 with heart rate of 91 possibly due to chemotherapy Will continue monitoring CBC BMP uric acid Objective Vitals Vital Signs Date Time Temp Pulse Resp B/P (MAP) Pulse Ox O2 Delivery O2 Flow Rate FiO2 06/10/17 04:00 86 06/10/17 04:00 95.8 91 18 146/79 (101) 98 06/10/17 00:00 89 06/10/17 00:00 96.7 91 18 144/92 (109) 95 06/09/17 20:00 96.4 88 18 117/87 (97) 95 06/09/17 20:00 85 06/09/17 16:06 87 06/09/17 16:00 98.3 82 16 108/73 (85) 99 06/09/17 12:04 83 06/09/17 12:00 97.2 86 16 116/84 (95) 98 I/O 06/09/17 06/09/17 06/09/17 06/10/17 06/10/17 06/10/17 07:00 15:00 23:00 07:00 15:00 23:00 Intake Total 496 ml 1480 ml 500 ml Output Total 750 ml 450 ml 1125 ml 800 ml Balance -254 ml 1030 ml -625 ml -800 ml Intake Oral 240 ml 480 ml 500 ml IV Total 256 ml 1000 ml Output Urine Total 750 ml 450 ml 1125 ml 800 ml # Voids 1 # Bowel Movements 1 Result Diagram: 06/10/17 0524 06/10/17 0524 Objective Remarks GENERAL: This is a well-nourished, well-developed patient, in no apparent distress. SKIN: No rashes, warm and dry HEAD: Atraumatic. Normocephalic. EYES: Pupils equal round and reactive. Extraocular motions intact. No scleral icterus. ENT: Nose without bleeding, or drainage, Airway patent. NECK: Trachea midline. Supple CARDIOVASCULAR: Regular rate and rhythm without murmurs, gallops, or rubs. RESPIRATORY: Fair air entry bilaterally. No wheezes, rales, or rhonchi. GASTROINTESTINAL: Abdomen soft, non-tender, nondistended. Positive bowel sounds MUSCULOSKELETAL: Extremities without clubbing, cyanosis, or edema. Pedal pulses appreciated NEUROLOGICAL: Awake and alert. Moves all extremity. Normal speech.no focal neurological deficit Procedures 04/[address] excision biopsy 04/27- port placement 05/02-TPA 05/06-left IJ Vas-Cath placement endotracheal intubation A/P Problem List: (1) Acute pancreatitis ICD Code: K85.90 - Acute pancreatitis without necrosis or infection, unspecified Status: Resolved (2) Transaminitis ICD Code: R74.0 - Nonspecific elevation of levels of transaminase and lactic acid dehydrogenase [LDH] Status: Acute (3) ALDO (acute kidney injury) ICD Code: N17.9 - Acute kidney failure, unspecified Status: Resolved (4) Pleural effusion ICD Code: J90 - Pleural effusion, not elsewhere classified Status: Acute Assessment and Plan 06/05: Stable, plan for chemotherapy on Thursday her hematology oncology 06/06: No acute issue, chemoon Thursday 06/07: No acute issue, dose of chemotherapy treatment tomorrow 06/08: Stable, plan for rituximab dose today, EPO CH tomorrow, close monitoring for tumor lysis syndrome. Oncology, INR 2.7, continue Lovenox bridging for 2 days INR above 2 06/09: Tolerated Rituxan well, plan to continue with EPO CH by oncology, hypomagnesemia and hypokalemia, replace and repeat in a.m., watch for any tumor lysis syndrome :Patient is on EPO CH by oncology, neutropenia, WBC 2.4 today, Blood pressure slightly on the higher side 146/79 with heart rate of 91 possibly due to chemotherapy Will continue monitoring CBC BMP, uric acid within normal limit still A/P: Acute Hypoxic Respiratory Failure Acute Submassive Pulmonary Embolism Right Heart Dysfunction Global severe left ventricular systolic dysfunction Cardiogenic Shock-resolved -- 2d echo 05/02: EF 30-35%, RV dysfunction with dilation --Repeat ECHO limited study scheduled on 05/09-RV function appears to have normalized, question of interatrial shunt for which cardiology consulted- cards recommended that once off anticoagulation, would need to be on ASA and require f/u echo periodically for evaluation. Acute Kidney Injury-resolved. Hypokalemia-replaced. hypomagnesemia- improved. -- likely secondary to cardiogenic shock -HD was discontinued. - s/p vas-cath removal- nephrology has signed off. Hyperphosphatemia-resolved. protein calorie malnutrition- severe ileus-resolved. -public health internship following; recommended alternative form of nutrition - PEG was discussed with the patient which he again declined, he states that his appetite is better now , send this patient therapy, regular diet with thin liquids. Large Cell B-cell lymphoma leukopenia Pulmonary Embolism anemia of chronic disease -- hematology/oncology following Dr. Connelly- - received chemo CHOP regimen. -plan for EPOCH chemotherapy on Thursday as inpatient. -INR subtherapeutic, continue Coumadin, colored Lovenox was subtherapeutic, recheck INR tomorrow. C. difficile colitis --finished the course of Vanco and Flagyl- DVT Prophylaxis: coumadin, Lovenox was subtherapeutic Discharge Planning Will keep inpatient to finish chemotherapy. Discharge once cleared by hematology. Problem Qualifiers (1) Acute pancreatitis: Tereso Foote MD Jun 10, 2017 08:53
[2017-06-10] MEDS: predniSONE 50 MG TAB PO SCH ×2 (11:29→21:43)
[2017-06-10] MEDS: predniSONE 10 MG TAB PO SCH ×2 (11:29→21:44)
[2017-06-10] MEDS: DRONABINOL 5 MG CAP PO SCH ×2 (11:29→15:43)
[2017-06-10] MEDS: SODIUM CHLOR 0.9% 1000 ML INJ 1,000 ML IV SCH (11:29)
[2017-06-10] MEDS: GRANISETRON INJ 1 MG, DEXAMETHASONE INJ 20 MG in SODIUM CHLORIDE 0.9% INJ 50 ML IV SCH (12:39)
--- NOTE | 2017-06-10 13:42 | RADRPT ---
EXAM DATE/TIME: 06/10/2017 13:04 [facility] COMPARISON: CHEST SINGLE AP, May 21, 2017, 6:05. INDICATIONS : Short of breath. MEDICAL HISTORY : Lymphoma. Pancreatitis. SURGICAL HISTORY : None. ENCOUNTER: Subsequent ACUITY: 2 months PAIN SCORE: 0/10 LOCATION: Bilateral chest FINDINGS: Right chest port is stable in good position. Right peritracheal mass is noted, not significant change d. Hazy bibasilar parenchymal opacities suggest basilar infiltrates and effusions, left worse than ri ght. Heart size is grossly stable. CONCLUSION: Basilar infiltrates and effusions. Right paratracheal mass Tacos Garcia MD on June 10, 2017 at 13:39 Board Certified Radiologist. This report was verified electronically.
--- NOTE | 2017-06-10 14:23 | PD.ONC.PN ---
Subjective Subjective Remarks Pt reports he had SOB earlier this am but it is improved now. Tolerating chemotherapy Objective Data Date Time Temp Pulse Resp B/P (MAP) Pulse Ox O2 Delivery O2 Flow Rate FiO2 06/10/17 12:11 92 06/10/17 08:04 99 06/10/17 08:00 96.7 96 16 144/99 (114) 100 06/10/17 04:00 86 06/10/17 04:00 95.8 91 18 146/79 (101) 98 06/10/17 00:00 89 06/10/17 00:00 96.7 91 18 144/92 (109) 95 06/09/17 20:00 96.4 88 18 117/87 (97) 95 06/09/17 20:00 85 06/09/17 16:06 87 06/09/17 16:00 98.3 82 16 108/73 (85) 99 06/10/17 06/10/17 06/10/17 07:00 15:00 23:00 Intake Total 500 ml 2114 ml Output Total 1125 ml 1250 ml Balance -625 ml 864 ml Result Diagram: 06/10/1724 06/10/17 0524 Laboratory Results Laboratory Tests Test 06/10/17 05:24 White Blood Count 2.4 TH/MM3 Red Blood Count 3.36 MIL/MM3 Hemoglobin 10.2 GM/DL Hematocrit 30.3 % Mean Corpuscular Volume 90.0 FL Mean Corpuscular Hemoglobin 30.4 PG Mean Corpuscular Hemoglobin Concent 33.8 % Red Cell Distribution Width 17.2 % Platelet Count 306 TH/MM3 Mean Platelet Volume 7.3 FL Neutrophils (%) (Auto) 86.6 % Lymphocytes (%) (Auto) 11.5 % Monocytes (%) (Auto) 1.7 % Eosinophils (%) (Auto) 0.0 % Basophils (%) (Auto) 0.2 % Neutrophils # (Auto) 2.1 TH/MM3 Lymphocytes # (Auto) 0.3 TH/MM3 Monocytes # (Auto) 0.0 TH/MM3 Eosinophils # (Auto) 0.0 TH/MM3 Basophils # (Auto) 0.0 TH/MM3 CBC Comment DIFF FINAL Differential Comment Prothrombin Time 37.4 SEC Prothromb Time International Ratio 3.2 RATIO Blood Urea Nitrogen 10 MG/DL Creatinine 0.92 MG/DL Random Glucose 132 MG/DL Total Protein 6.1 GM/DL Albumin 2.2 GM/DL Calcium Level 8.3 MG/DL Phosphorus Level 3.2 MG/DL Magnesium Level 1.7 MG/DL Uric Acid 3.5 MG/DL Alkaline Phosphatase 92 U/L Aspartate Amino Transf (AST/SGOT) 20 U/L Alanine Aminotransferase (ALT/SGPT) 8 U/L Total Bilirubin 0.3 MG/DL Sodium Level 138 MEQ/L Potassium Level 3.4 MEQ/L Chloride Level 106 MEQ/L Carbon Dioxide Level 23.9 MEQ/L Anion Gap 8 MEQ/L Estimat Glomerular Filtration Rate 106 ML/MIN Imaging Studies Last 24 hours Impressions Chest X-Ray 06/10/17 0000 Signed Impressions: Service Date/Time: Saturday, June 10, 2017 13:04 - CONCLUSION: Basilar infiltrates and effusions. Right paratracheal mass Tacos Garcia MD Administered Medications Medications (Trade) Dose Ordered Sig/Shyla Route PRN Reason Start Time Stop Time Status Last Admin Dose Admin Sodium Chloride (NS Flush) 2 ml UNSCH PRN IV FLUSH FLUSH AFTER USING IV ACCESS 04/18/17 17:30 06/06/17 09:18 Nifedipine (Procardia Xl) 90 mg DAILY PO 04/28/17 09:00 06/10/17 08:30 Clonidine (Catapres) 0.1 mg Q6H PRN PO SBP>160, DBP>90 04/27/17 15:00 04/29/17 08:07 Ondansetron HCl (Zofran Inj) 4 mg Q6HR PRN IV PUSH NAUSEA OR VOMITING 04/30/17 11:30 05/07/17 10:06 Promethazine HCl (Phenergan Inj) 25 mg Q6H PRN IM NAUSEA OR VOMITING 04/30/17 11:30 05/01/17 13:27 Acetaminophen/ Hydrocodone Bitart ([place] 5-325 Mg) 1 tab Q6H PRN PO PAIN SCALE 1 TO 10 04/30/17 11:30 06/09/17 22:19 Albuterol/ Ipratropium (Duoneb Neb) 1 ampule Q2HR NEB PRN INH WHEEZING 05/02/17 10:00 05/08/17 08:08 Pantoprazole Sodium (Protonix Inj) 40 mg DAILY IV PUSH 05/07/17 12:00 06/10/17 08:31 Artificial Tears (Lacrilube Opht Oint) 1 applic Q8H EACH EYE 05/07/17 18:00 06/03/17 19:02 Dronabinol (Marinol) 5 mg BID@11,16 PO 05/14/17 16:00 06/10/17 11:29 Allopurinol (Zyloprim) 300 mg DAILY PO 05/28/17 09:00 06/10/17 08:30 Magnesium Oxide (Mag-Ox) 400 mg Q12HR PO 05/28/17 09:00 06/10/17 08:31 Multi-Ingredient Ointment (Eucerin Cream) 1 applic Q6H PRN TOPICAL DRY SKIN 05/31/17 14:00 05/31/17 17:46 Potassium Phos/ Sodium Phos (K-Phos Neutral) 250 mg Q8HR PO 06/01/17 08:15 06/10/17 05:19 Heparin Sodium (Porcine) (Heparin Central Flush) 500 units UNSCH IV FLUSH 06/06/17 20:00 06/06/17 21:17 Prednisone (Deltasone) 100 mg Q12H PO 06/09/17 11:00 06/13/17 23:01 06/10/17 11:29 Prednisone (Deltasone) 10 mg Q12H PO 06/09/17 11:00 06/13/17 23:01 06/10/17 11:29 Etoposide 91.5 mg/ Doxorubicin HCl 18.3 mg/ Vincristine Sulfate 0.7 mg/ Sodium Chloride 514.425 ml @ 21.024 mls/hr Q24H IV 06/09/17 13:00 06/13/17 12:59 06/09/17 13:10 Sodium Chloride 1,000 ml @ 50 mls/hr Q20H IV 06/09/17 09:00 06/10/17 11:29 Granisetron HCl 1 mg/Dexamethasone Sodium Phosphate 20 mg/Sodium Chloride 56 ml @ 224 mls/hr DAILY@1230 IV 06/09/17 12:30 06/12/17 12:44 06/10/17 12:39 Objective Remarks GENERAL: Weak, thin appearing middle-aged male resting in bed in no distress SKIN: Warm and dry. Xerosis. HEAD: Normocephalic. EYES: No injection or drainage. NECK: Right supraclavicular LN prominent; decreasing in size. LYMPHATIC: Left axillary mass prominent and firm. CARDIOVASCULAR: Regular rate and rhythm without murmurs. RESPIRATORY: Breath sounds equal bilaterally. No accessory muscle use. GASTROINTESTINAL: Abdomen soft, non-tender, nondistended. EXTREMITIES: No cyanosis, or edema. NEUROLOGICAL: No obvious focal deficit. Awake, alert, and oriented x3. 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 --Received Rituxan x1. --Neck adenopathy relatively stable. --05/18-->CHOP chemotherapy --The neck and axillary mass are more prominent worrisome for progression of disease -- R-EPOCH chemotherapy started on 06/08. (2) Pulmonary emboli ICD Codes: I26.99 - Other pulmonary embolism without acute cor pulmonale Status: Resolved Plan: --On coumadin --CTA showed large PE --s/p tpa therapy on 7.2 --INR daily (3) Normocytic anemia ICD Codes: D64.9 - Anemia, unspecified Status: Acute Plan: --multifactorial due to chronic disease, renal failure --monitor and transfuse as needed (4) ALDO (acute kidney injury) ICD Codes: N17.9 - Acute kidney failure, unspecified Status: Resolved Plan: --creatinine significantly improved. Assessment 47y/o male admitted with pancreatitis, found to have NHL. Have some response to R_CHOP but the masses seems more prominent again worrisome for progression of disease. Plan 1. Continue chemotherapy 2. Resume coumadin today at 5mg po daily 3. CXR ordered d/t prior SOB; will also decrease fluids to 50ml/hr. 4. Monitor labs, monitor for tumor lysis syndrome Attending Statement The exam, history, and the medical decision-making described in the above note were completed with the assistance of the mid-level provider. I reviewed and agree with the findings presented. I attest that I had a [id number] encounter with the patient on the same day, and personally performed and documented my assessment and findings in the medical record. Mild SOB and cough. Tolerating chemo well. Masses are softer. No evidence of TLS. Renal function improved with hydration. Get CXR. Restart couadin at lower dose. Problem Qualifiers (1) Non-Hodgkin lymphoma: Tia Montenegro Jun 10, 2017 14:23 Ruslan Connelly MD Jun 10, 2017 15:22
[2017-06-10] MEDS ORDERED: WARFARIN SOD 6 MG TAB PO SCH (16:00)
[2017-06-10] MEDS: DOXORUBICIN IV SCH (16:24)
[2017-06-10] MEDS: [UNRECOGNIZED DRUG - OTHER] IV SCH (16:24)
[2017-06-10] MEDS: ETOPOSIDE IV SCH (16:24)
[2017-06-10] MEDS: VINCRISTINE IV SCH (16:24)
[2017-06-11] VITALS (9 sets, daily range): BP systolic 126–144; BP diastolic 76–96; PULSE 52–89; RESP 18–20; TEMP 95.5–97.3; O2SAT 95–99
[2017-06-11] MEDS: ARTIFICIAL TEARS OPTH OINT 3.5 APPLIC/3.5 GM TUBO EACH EYE SCH ×3 (02:00→17:52)
[2017-06-11] MEDS: POTASSIUM PHOSPHATE/SODIUM PHOSPHATE 250 MG TAB PO SCH ×3 (05:56→22:04)
[2017-06-11 06:56] LABS: AUTOMATED NEUTROPHIL # 5.4 TH/MM3 (1.8-7.7); BASOPHIL % 0.1 % (0.0-2.0); HEMATOCRIT 29.1 % (39.0-51.0); HEMO FLAGS DIFF FINAL; LYMPH % 4.3 % (9.0-44.0); LYMPHOCYTE # 0.3 TH/MM3 (1.0-4.8); MEAN CELL VOLUME 90.7 FL (80.0-100.0); MEAN CORPUSCULAR HEMOGLOBIN 30.9 PG (27.0-34.0); MONO % 2.2 % (0.0-8.0); NEUT % 93.4 % (16.0-70.0); PLATELET COUNT 318 TH/MM3 (150-450); RED BLOOD COUNT 3.21 MIL/MM3 (4.50-5.90); RED CELL DISTRIBUTION WIDTH 17.1 % (11.6-17.2); WHITE BLOOD COUNT 5.8 TH/MM3 (4.0-11.0)
[2017-06-11 07:02] LABS: INTERNATIONAL NORMALIZED RATIO 2.1 RATIO; PROTHROMBIN TIME - PATIENT 24.5 SEC (9.8-11.6)
[2017-06-11 07:13] LABS: ANION GAP 8 MEQ/L (5-15); AST (GOT) 19 U/L (15-37); BICARBONATE 25.6 MEQ/L (21.0-32.0); BLOOD UREA NITROGEN 11 MG/DL (7-18); CHLORIDE 108 MEQ/L (98-107); GLOMERULAR FILTRATION RATE 145 ML/MIN (>89); MAGNESIUM 1.3 MG/DL (1.5-2.5); POTASSIUM 3.2 MEQ/L (3.5-5.1); SODIUM (NA) 142 MEQ/L (136-145)
[2017-06-11 07:15] LABS: ALT (GPT) 10 U/L (12-78); URIC ACID 3.1 MG/DL (2.6-7.2)
[2017-06-11 07:17] LABS: ALKALINE PHOSPHATASE 82 U/L (45-117); TOTAL BILIRUBIN ADULT 0.3 MG/DL (0.2-1.0)
[2017-06-11] MEDS: MAGNESIUM OXIDE 400 MG TAB PO SCH ×2 (09:54→22:04)
[2017-06-11] MEDS: predniSONE 50 MG TAB PO SCH ×2 (09:54→22:04)
[2017-06-11] MEDS: PANTOPRAZOLE SODIUM 40 MG VIAL IV PUSH SCH (09:54)
[2017-06-11] MEDS: NIFEdipine 90 MG SUSTAINED RELEASE TAB PO SCH (09:54)
[2017-06-11] MEDS: ALLOPURINOL 300 MG TAB PO SCH (09:55)
[2017-06-11] MEDS: predniSONE 10 MG TAB PO SCH ×2 (09:55→22:04)
[2017-06-11] MEDS: DRONABINOL 5 MG CAP PO SCH ×2 (09:57→16:19)
[2017-06-11] MEDS: SODIUM CHLOR 0.9% 1000 ML INJ 1,000 ML IV SCH (09:58)
--- NOTE | 2017-06-11 10:25 | PD.ONC.PN ---
Subjective Subjective Remarks Afebrile Tolerating chemotherapy very well Reports his shortness of breath and cough are gone Right neck lymphadenopathy almost completely gone Objective Data Date Time Temp Pulse Resp B/P (MAP) Pulse Ox O2 Delivery O2 Flow Rate FiO2 06/11/17 08:00 96.3 57 20 144/96 (112) 98 06/11/17 04:03 75 06/11/17 04:00 96.0 83 18 143/87 (105) 97 06/11/17 00:12 86 06/11/17 00:00 95.9 80 18 134/92 (106) 96 06/10/17 20:05 86 06/10/17 20:00 95.4 88 18 128/84 (99) 97 06/10/17 16:00 96.4 94 18 110/60 (77) 95 06/10/17 13:05 92 06/10/17 12:11 92 06/10/17 12:00 96.9 94 16 144/94 (111) 97 06/11/17 06/11/17 06/11/17 07:00 15:00 23:00 Intake Total 240 ml Output Total 1100 ml 700 ml Balance -860 ml -700 ml Result Diagram: 06/11/17 0605 06/11/17 0605 Laboratory Results Laboratory Tests Test 06/11/17 06:05 White Blood Count 5.8 TH/MM3 Red Blood Count 3.21 MIL/MM3 Hemoglobin 9.9 GM/DL Hematocrit 29.1 % Mean Corpuscular Volume 90.7 FL Mean Corpuscular Hemoglobin 30.9 PG Mean Corpuscular Hemoglobin Concent 34.0 % Red Cell Distribution Width 17.1 % Platelet Count 318 TH/MM3 Mean Platelet Volume 7.4 FL Neutrophils (%) (Auto) 93.4 % Lymphocytes (%) (Auto) 4.3 % Monocytes (%) (Auto) 2.2 % Eosinophils (%) (Auto) 0.0 % Basophils (%) (Auto) 0.1 % Neutrophils # (Auto) 5.4 TH/MM3 Lymphocytes # (Auto) 0.3 TH/MM3 Monocytes # (Auto) 0.1 TH/MM3 Eosinophils # (Auto) 0.0 TH/MM3 Basophils # (Auto) 0.0 TH/MM3 CBC Comment DIFF FINAL Differential Comment Prothrombin Time 24.5 SEC Prothromb Time International Ratio 2.1 RATIO Blood Urea Nitrogen 11 MG/DL Creatinine 0.70 MG/DL Random Glucose 117 MG/DL Total Protein 6.0 GM/DL Albumin 2.2 GM/DL Calcium Level 8.0 MG/DL Phosphorus Level 2.9 MG/DL Magnesium Level 1.3 MG/DL Uric Acid 3.1 MG/DL Alkaline Phosphatase 82 U/L Aspartate Amino Transf (AST/SGOT) 19 U/L Alanine Aminotransferase (ALT/SGPT) 10 U/L Total Bilirubin 0.3 MG/DL Sodium Level 142 MEQ/L Potassium Level 3.2 MEQ/L Chloride Level 108 MEQ/L Carbon Dioxide Level 25.6 MEQ/L Anion Gap 8 MEQ/L Estimat Glomerular Filtration Rate 145 ML/MIN Administered Medications Medications (Trade) Dose Ordered Sig/Shyla Route PRN Reason Start Time Stop Time Status Last Admin Dose Admin Sodium Chloride (NS Flush) 2 ml UNSCH PRN IV FLUSH FLUSH AFTER USING IV ACCESS 04/18/17 17:30 06/06/17 09:18 Nifedipine (Procardia Xl) 90 mg DAILY PO 04/28/17 09:00 06/11/17 09:54 Clonidine (Catapres) 0.1 mg Q6H PRN PO SBP>160, DBP>90 04/27/17 15:00 04/29/17 08:07 Ondansetron HCl (Zofran Inj) 4 mg Q6HR PRN IV PUSH NAUSEA OR VOMITING 04/30/17 11:30 05/07/17 10:06 Promethazine HCl (Phenergan Inj) 25 mg Q6H PRN IM NAUSEA OR VOMITING 04/30/17 11:30 05/01/17 13:27 Acetaminophen/ Hydrocodone Bitart ([place] 5-325 Mg) 1 tab Q6H PRN PO PAIN SCALE 1 TO 10 04/30/17 11:30 06/09/17 22:19 Albuterol/ Ipratropium (Duoneb Neb) 1 ampule Q2HR NEB PRN INH WHEEZING 05/02/17 10:00 05/08/17 08:08 Pantoprazole Sodium (Protonix Inj) 40 mg DAILY IV PUSH 05/07/17 12:00 06/11/17 09:54 Artificial Tears (Lacrilube Opht Oint) 1 applic Q8H EACH EYE 05/07/17 18:00 06/03/17 19:02 Dronabinol (Marinol) 5 mg BID@11,16 PO 05/14/17 16:00 06/11/17 09:57 Allopurinol (Zyloprim) 300 mg DAILY PO 05/28/17 09:00 06/11/17 09:55 Magnesium Oxide (Mag-Ox) 400 mg Q12HR PO 05/28/17 09:00 06/11/17 09:54 Multi-Ingredient Ointment (Eucerin Cream) 1 applic Q6H PRN TOPICAL DRY SKIN 05/31/17 14:00 05/31/17 17:46 Potassium Phos/ Sodium Phos (K-Phos Neutral) 250 mg Q8HR PO 06/01/17 08:15 06/11/17 05:56 Heparin Sodium (Porcine) (Heparin Central Flush) 500 units UNSCH IV FLUSH 06/06/17 20:00 06/06/17 21:17 Prednisone (Deltasone) 100 mg Q12H PO 06/09/17 11:00 06/13/17 23:01 06/11/17 09:54 Prednisone (Deltasone) 10 mg Q12H PO 06/09/17 11:00 06/13/17 23:01 06/11/17 09:55 Etoposide 91.5 mg/ Doxorubicin HCl 18.3 mg/ Vincristine Sulfate 0.7 mg/ Sodium Chloride 514.425 ml @ 21.024 mls/hr Q24H IV 06/09/17 13:00 06/13/17 12:59 06/10/17 16:24 Sodium Chloride 1,000 ml @ 50 mls/hr Q20H IV 06/09/17 09:00 06/11/17 09:58 Granisetron HCl 1 mg/Dexamethasone Sodium Phosphate 20 mg/Sodium Chloride 56 ml @ 224 mls/hr DAILY@1230 IV 06/09/17 12:30 06/12/17 12:44 06/10/17 12:39 Objective Remarks GENERAL: Weak, thin appearing middle-aged male resting in bed in no distress SKIN: Warm and dry. Xerosis. HEAD: Normocephalic. EYES: No injection or drainage. NECK: Right supraclavicular LN almost completely gone LYMPHATIC: Left axillary mass much softer CARDIOVASCULAR: Regular rate and rhythm without murmurs. RESPIRATORY: Breath sounds equal bilaterally. No accessory muscle use. GASTROINTESTINAL: Abdomen soft, non-tender, nondistended. EXTREMITIES: No cyanosis, or edema. NEUROLOGICAL: No obvious focal deficit. Awake, alert, and oriented x3. 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 --Received Rituxan x1. --05/18-->CHOP chemotherapy -- R-EPOCH chemotherapy started on 06/08. (2) Pulmonary emboli ICD Codes: I26.99 - Other pulmonary embolism without acute cor pulmonale Status: Resolved Plan: --On coumadin --CTA showed large PE --s/p tpa therapy on 7.2 --INR daily (3) Normocytic anemia ICD Codes: D64.9 - Anemia, unspecified Status: Acute Plan: --multifactorial due to chronic disease, renal failure --monitor and transfuse as needed (4) ALDO (acute kidney injury) ICD Codes: N17.9 - Acute kidney failure, unspecified Status: Resolved Plan: --creatinine significantly improved. Assessment 47y/o male admitted with pancreatitis, found to have NHL. Have some response to R_CHOP but the masses seems more prominent again worrisome for progression of disease. Plan 1. Right neck lymphadenopathy almost completely gone; left axillary mass smaller and much softer 2. Continue Coumadin at 5 mg by mouth daily 3. Continue chemotherapy 4. Will give extra dose of magnesium, potassium today; continue to monitor for tumor lysis syndrome. Attending Statement The exam, history, and the medical decision-making described in the above note were completed with the assistance of the mid-level provider. I reviewed and agree with the findings presented. I attest that I had a [id number] encounter with the patient on the same day, and personally performed and documented my assessment and findings in the medical record. No CP/SOB. Cough resolved. Tolerating chemotherapy well. No TLS. The masses are smaller. Continue chemotherapy. Continue coumadin. Problem Qualifiers (1) Non-Hodgkin lymphoma: Tia Montenegro Jun 11, 2017 10:25 Ruslan Connelly MD Jun 11, 2017 17:02
[2017-06-11] MEDS ORDERED: MAGNESIUM OXIDE 400 MG TAB PO ONE (10:30)
[2017-06-11] MEDS ORDERED: POTASSIUM CHLORIDE 20 MEQ CONTROLLED RELEASE TAB PO ONE (10:30)
--- NOTE | 2017-06-11 10:53 | HHI.PR ---
Subjective Remarks Denied any complain, cervical lymph node decreasing in volume No fever or chills On treatment for lymphoma Objective Vitals Vital Signs Date Time Temp Pulse Resp B/P (MAP) Pulse Ox O2 Delivery O2 Flow Rate FiO2 06/11/17 08:00 96.3 57 20 144/96 (112) 98 06/11/17 04:03 75 06/11/17 04:00 96.0 83 18 143/87 (105) 97 06/11/17 00:12 86 06/11/17 00:00 95.9 80 18 134/92 (106) 96 06/10/17 20:05 86 06/10/17 20:00 95.4 88 18 128/84 (99) 97 06/10/17 16:00 96.4 94 18 110/60 (77) 95 06/10/17 13:05 92 06/10/17 12:11 92 06/10/17 12:00 96.9 94 16 144/94 (111) 97 I/O 06/10/17 06/10/17 06/10/17 06/11/17 06/11/17 06/11/17 07:00 15:00 23:00 07:00 15:00 23:00 Intake Total 500 ml 2114 ml 1210 ml 240 ml Output Total 1125 ml 1250 ml 2125 ml 1100 ml 700 ml Balance -625 ml 864 ml -915 ml -860 ml -700 ml Intake Oral 500 ml 1210 ml 240 ml IV Total 2114 ml Output Urine Total 1125 ml 1250 ml 2125 ml 1100 ml 700 ml Result Diagram: 06/11/1760406/11/17 06 Objective Remarks GENERAL: This is a well-nourished, well-developed patient, in no apparent distress. SKIN: No rashes, warm and dry HEAD: Atraumatic. Normocephalic. EYES: Pupils equal round and reactive. Extraocular motions intact. No scleral icterus. ENT: Nose without bleeding, or drainage, Airway patent. NECK: Trachea midline. Supple CARDIOVASCULAR: Regular rate and rhythm without murmurs, gallops, or rubs. RESPIRATORY: Fair air entry bilaterally. No wheezes, rales, or rhonchi. GASTROINTESTINAL: Abdomen soft, non-tender, nondistended. Positive bowel sounds MUSCULOSKELETAL: Extremities without clubbing, cyanosis, or edema. Pedal pulses appreciated NEUROLOGICAL: Awake and alert. Moves all extremity. Normal speech.no focal neurological deficit Procedures 04/[address] excision biopsy 04/27- port placement 05/02-TPA 05/06-left IJ Vas-Cath placement endotracheal intubation A/P Problem List: (1) Acute pancreatitis ICD Code: K85.90 - Acute pancreatitis without necrosis or infection, unspecified Status: Resolved (2) Transaminitis ICD Code: R74.0 - Nonspecific elevation of levels of transaminase and lactic acid dehydrogenase [LDH] Status: Acute (3) ALDO (acute kidney injury) ICD Code: N17.9 - Acute kidney failure, unspecified Status: Resolved (4) Pleural effusion ICD Code: J90 - Pleural effusion, not elsewhere classified Status: Acute Assessment and Plan 06/11: A/P: Acute Hypoxic Respiratory Failure Acute Submassive Pulmonary Embolism Right Heart Dysfunction Global severe left ventricular systolic dysfunction Cardiogenic Shock-resolved -- 2d echo 05/02: EF 30-35%, RV dysfunction with dilation --Repeat ECHO limited study scheduled on 05/09-RV function appears to have normalized, question of interatrial shunt for which cardiology consulted- cards recommended that once off anticoagulation, would need to be on ASA and require f/u echo periodically for evaluation. Acute Kidney Injury-resolved. Hypokalemia-replaced. hypomagnesemia- improved. -- likely secondary to cardiogenic shock -HD was discontinued. - s/p vas-cath removal- nephrology has signed off. Hyperphosphatemia-resolved. protein calorie malnutrition- severe ileus-resolved. -chemical inspector following; recommended alternative form of nutrition - PEG was discussed with the patient which he again declined, he states that his appetite is better now , send this patient therapy, regular diet with thin liquids. Large Cell B-cell lymphoma leukopenia Pulmonary Embolism anemia of chronic disease -- hematology/oncology following Dr. Connelly- - received chemo CHOP regimen. -Started on EPOCH chemotherapy -continue Coumadin, colored Lovenox was subtherapeutic, monitor INR C. difficile colitis --finished the course of Vanco and Flagyl- DVT Prophylaxis: coumadin, Lovenox was subtherapeutic Discharge Planning Will keep inpatient to finish chemotherapy. Discharge once cleared by hematology. Problem Qualifiers (1) Acute pancreatitis: Tereso Foote MD Jun 11, 2017 10:53
[2017-06-11] MEDS: GRANISETRON INJ 1 MG, DEXAMETHASONE INJ 20 MG in SODIUM CHLORIDE 0.9% INJ 50 ML IV SCH (16:12)
[2017-06-11] MEDS: WARFARIN SOD 5 MG TAB PO SCH (16:14)
[2017-06-11] MEDS: ETOPOSIDE IV SCH (23:13)
[2017-06-11] MEDS: DOXORUBICIN IV SCH (23:13)
[2017-06-11] MEDS: VINCRISTINE IV SCH (23:13)
[2017-06-11] MEDS: [UNRECOGNIZED DRUG - OTHER] IV SCH (23:13)
[2017-06-12] VITALS (7 sets, daily range): BP systolic 107–150; BP diastolic 73–89; PULSE 67–85; RESP 16–18; TEMP 96.1–97.8; O2SAT 98–100
[2017-06-12] MEDS: ARTIFICIAL TEARS OPTH OINT 3.5 APPLIC/3.5 GM TUBO EACH EYE SCH ×3 (01:01→18:00)
[2017-06-12] MEDS: SODIUM CHLOR 0.9% 1000 ML INJ 1,000 ML IV SCH ×2 (04:08→09:19)
[2017-06-12] MEDS: POTASSIUM PHOSPHATE/SODIUM PHOSPHATE 250 MG TAB PO SCH (05:01)
[2017-06-12 06:07] LABS: INTERNATIONAL NORMALIZED RATIO 2.2 RATIO; PROTHROMBIN TIME - PATIENT 25.7 SEC (9.8-11.6)
[2017-06-12] MEDS: ALLOPURINOL 300 MG TAB PO SCH (09:08)
[2017-06-12] MEDS: MAGNESIUM OXIDE 400 MG TAB PO SCH ×2 (09:08→22:11)
[2017-06-12] MEDS: NIFEdipine 90 MG SUSTAINED RELEASE TAB PO SCH (09:08)
[2017-06-12] MEDS: PANTOPRAZOLE SODIUM 40 MG VIAL IV PUSH SCH (09:08)
--- NOTE | 2017-06-12 11:45 | PD.ONC.PN ---
Subjective Subjective Remarks Afebrile overnight. Patient resting in bed in nad. Tolerating EPOCH chemotherapy. eager to go home. Objective Data Date Time Temp Pulse Resp B/P (MAP) Pulse Ox O2 Delivery O2 Flow Rate FiO2 06/12/17 08:00 97.2 72 16 149/89 (109) 100 06/12/17 04:00 96.9 80 18 132/80 (97) 99 06/12/17 00:00 96.1 83 18 139/88 (105) 98 06/11/17 21:30 83 06/11/17 20:00 97.3 85 18 126/83 (97) 99 06/11/17 16:00 95.5 52 20 131/81 (98) 95 06/11/17 12:00 89 06/11/17 12:00 96.3 78 20 128/76 (93) 96 06/12/17 06/12/17 06/12/17 07:00 15:00 23:00 Intake Total 3704 ml Output Total 1650 ml Balance 2054 ml Result Diagram: 06/11/1760406/11/17 06 Laboratory Results Laboratory Tests Test 06/12/17 04:59 Prothrombin Time 25.7 SEC Prothromb Time International Ratio 2.2 RATIO Administered Medications Medications (Trade) Dose Ordered Sig/Shyla Route PRN Reason Start Time Stop Time Status Last Admin Dose Admin Sodium Chloride (NS Flush) 2 ml UNSCH PRN IV FLUSH FLUSH AFTER USING IV ACCESS 04/18/17 17:30 06/06/17 09:18 Nifedipine (Procardia Xl) 90 mg DAILY PO 04/28/17 09:00 06/12/17 09:08 Clonidine (Catapres) 0.1 mg Q6H PRN PO SBP>160, DBP>90 04/27/17 15:00 04/29/17 08:07 Ondansetron HCl (Zofran Inj) 4 mg Q6HR PRN IV PUSH NAUSEA OR VOMITING 04/30/17 11:30 05/07/17 10:06 Promethazine HCl (Phenergan Inj) 25 mg Q6H PRN IM NAUSEA OR VOMITING 04/30/17 11:30 05/01/17 13:27 Acetaminophen/ Hydrocodone Bitart ([place] 5-325 Mg) 1 tab Q6H PRN PO PAIN SCALE 1 TO 10 04/30/17 11:30 06/09/17 22:19 Albuterol/ Ipratropium (Duoneb Neb) 1 ampule Q2HR NEB PRN INH WHEEZING 05/02/17 10:00 05/08/17 08:08 Pantoprazole Sodium (Protonix Inj) 40 mg DAILY IV PUSH 05/07/17 12:00 06/12/17 09:08 Artificial Tears (Lacrilube Opht Oint) 1 applic Q8H EACH EYE 05/07/17 18:00 06/03/17 19:02 Dronabinol (Marinol) 5 mg BID@11,16 PO 05/14/17 16:00 06/11/17 16:19 Allopurinol (Zyloprim) 300 mg DAILY PO 05/28/17 09:00 06/12/17 09:08 Magnesium Oxide (Mag-Ox) 400 mg Q12HR PO 05/28/17 09:00 06/12/17 09:08 Multi-Ingredient Ointment (Eucerin Cream) 1 applic Q6H PRN TOPICAL DRY SKIN 05/31/17 14:00 05/31/17 17:46 Potassium Phos/ Sodium Phos (K-Phos Neutral) 250 mg Q8HR PO 06/01/17 08:15 06/12/17 05:01 Heparin Sodium (Porcine) (Heparin Central Flush) 500 units UNSCH IV FLUSH 06/06/17 20:00 06/06/17 21:17 Prednisone (Deltasone) 100 mg Q12H PO 06/09/17 11:00 06/13/17 23:01 06/11/17 22:04 Prednisone (Deltasone) 10 mg Q12H PO 06/09/17 11:00 06/13/17 23:01 06/11/17 22:04 Etoposide 91.5 mg/ Doxorubicin HCl 18.3 mg/ Vincristine Sulfate 0.7 mg/ Sodium Chloride 514.425 ml @ 21.024 mls/hr Q24H IV 06/09/17 13:00 06/13/17 12:59 06/11/17 23:13 Sodium Chloride 1,000 ml @ 50 mls/hr Q20H IV 06/09/17 09:00 06/12/17 09:19 Granisetron HCl 1 mg/Dexamethasone Sodium Phosphate 20 mg/Sodium Chloride 56 ml @ 224 mls/hr DAILY@1230 IV 06/09/17 12:30 06/12/17 12:44 06/11/17 16:12 Warfarin Sodium (Coumadin) 5 mg DAILY@1600 PO 06/10/17 16:00 Future hold 06/11/17 16:14 Objective Remarks GENERAL: Middle aged male upright in bed in nad. SKIN: Warm and dry. HEAD: Normocephalic. EYES: No injection or drainage. NECK: Supple, trachea midline. CARDIOVASCULAR: Regular rate and rhythm RESPIRATORY: Breath sounds equal bilaterally. No accessory muscle use. GASTROINTESTINAL: Abdomen soft, non-tender, nondistended. EXTREMITIES: No cyanosis NEUROLOGICAL: No obvious focal deficit. Awake, alert, and oriented x3. 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 --Received Rituxan x1. --05/18-->CHOP chemotherapy -- R-EPOCH chemotherapy started on 06/08. estimated completion on 06/13 at midnight. (2) Pulmonary emboli ICD Codes: I26.99 - Other pulmonary embolism without acute cor pulmonale Status: Resolved Plan: --On coumadin --CTA showed large PE --s/p tpa therapy on 7.2 --INR daily (3) Normocytic anemia ICD Codes: D64.9 - Anemia, unspecified Status: Acute Plan: --multifactorial due to chronic disease, renal failure --monitor and transfuse as needed Assessment 47y/o male admitted with pancreatitis, found to have NHL. Have some response to R_CHOP but the masses seems more prominent again worrisome for progression of disease. Plan 1. continue EPOCH chemotherapy 2. monitor CBC, CMP. check magnesium, phosphorus today 3. continue coumadin. Attending Statement The exam, history, and the medical decision-making described in the above note were completed with the assistance of the mid-level provider. I reviewed and agree with the findings presented. I attest that I had a [id number] encounter with the patient on the same day, and personally performed and documented my assessment and findings in the medical record. Tolerating chemo well. Masses are smaller. No TLS. Will start neupogen 24hours after completion of chemo. Anticipate d/c early next week. Problem Qualifiers (1) Non-Hodgkin lymphoma: Brenda Platt Jun 12, 2017 11:45 Ruslan Connelly MD Jun 12, 2017 14:56
[2017-06-12] MEDS: DRONABINOL 5 MG CAP PO SCH ×2 (12:34→18:05)
[2017-06-12] MEDS: predniSONE 50 MG TAB PO SCH ×2 (12:34→22:11)
[2017-06-12] MEDS: predniSONE 10 MG TAB PO SCH ×2 (12:35→22:11)
[2017-06-12 14:22] LABS: AUTOMATED NEUTROPHIL # 4.9 TH/MM3 (1.8-7.7); BASOPHIL % 0.1 % (0.0-2.0); HEMO FLAGS DIFF FINAL; LYMPH % 7.3 % (9.0-44.0); LYMPHOCYTE # 0.4 TH/MM3 (1.0-4.8); MEAN CELL VOLUME 89.6 FL (80.0-100.0); MEAN CORPUSCULAR HEMOGLOBIN 31.1 PG (27.0-34.0); MEAN CORPUSCULAR HGB CONC 34.7 % (32.0-36.0); MONO % 5.5 % (0.0-8.0); NEUT % 87.1 % (16.0-70.0); PLATELET COUNT 327 TH/MM3 (150-450); RED BLOOD COUNT 3.24 MIL/MM3 (4.50-5.90); RED CELL DISTRIBUTION WIDTH 16.7 % (11.6-17.2); WHITE BLOOD COUNT 5.6 TH/MM3 (4.0-11.0)
[2017-06-12 14:47] LABS: BICARBONATE 27.3 MEQ/L (21.0-32.0); CALCIUM-PROTEIN CORRECTED 7.8 MG/DL (8.5-10.1); MAGNESIUM 1.1 MG/DL (1.5-2.5); TOTAL BILIRUBIN ADULT 0.3 MG/DL (0.2-1.0)
[2017-06-12] MEDS ORDERED: POTASSIUM CHLORIDE 20 MEQ CONTROLLED RELEASE TAB PO ONE (16:00)
--- NOTE | 2017-06-12 16:58 | HHI.PR ---
Subjective Remarks No acute issue, on R EP COH Showing improvement, discussed with oncology [employer] COUNSEL[employer] Objective Vitals Vital Signs Date Time Temp Pulse Resp B/P (MAP) Pulse Ox O2 Delivery O2 Flow Rate FiO2 06/12/17 16:00 97.8 77 18 107/73 (84) 100 06/12/17 12:00 97.0 77 18 150/83 (105) 100 06/12/17 12:00 85 06/12/17 08:00 97.2 72 16 149/89 (109) 100 06/12/17 08:00 67 06/12/17 04:00 96.9 80 18 132/80 (97) 99 06/12/17 00:00 96.1 83 18 139/88 (105) 98 06/11/17 21:30 83 06/11/17 20:00 97.3 85 18 126/83 (97) 99 I/O 06/11/17 06/11/17 06/11/17 06/12/17 06/12/17 06/12/17 07:00 15:00 23:00 07:00 15:00 23:00 Intake Total 240 ml 720 ml 1084 ml 3704 ml Output Total 1100 ml 1200 ml 500 ml 1650 ml Balance -860 ml -480 ml 584 ml 2054 ml Intake Oral 240 ml 720 ml 240 ml 480 ml IV Total 844 ml 3224 ml Output Urine Total 1100 ml 1200 ml 500 ml 1650 ml Result Diagram: 06/12/17 1355 06/12/17 1355 Objective Remarks GENERAL: This is a well-nourished, well-developed patient, in no apparent distress. SKIN: No rashes, warm and dry HEAD: Atraumatic. Normocephalic. EYES: Pupils equal round and reactive. Extraocular motions intact. No scleral icterus. ENT: Nose without bleeding, or drainage, Airway patent. NECK: Trachea midline. Supple CARDIOVASCULAR: Regular rate and rhythm without murmurs, gallops, or rubs. RESPIRATORY: Fair air entry bilaterally. No wheezes, rales, or rhonchi. GASTROINTESTINAL: Abdomen soft, non-tender, nondistended. Positive bowel sounds MUSCULOSKELETAL: Extremities without clubbing, cyanosis, or edema. Pedal pulses appreciated NEUROLOGICAL: Awake and alert. Moves all extremity. Normal speech.no focal neurological deficit Procedures 04/[address] excision biopsy 04/27- port placement 05/02-TPA 05/06-left IJ Vas-Cath placement endotracheal intubation A/P Problem List: (1) Acute pancreatitis ICD Code: K85.90 - Acute pancreatitis without necrosis or infection, unspecified Status: Resolved (2) Transaminitis ICD Code: R74.0 - Nonspecific elevation of levels of transaminase and lactic acid dehydrogenase [LDH] Status: Acute (3) ALDO (acute kidney injury) ICD Code: N17.9 - Acute kidney failure, unspecified Status: Resolved (4) Pleural effusion ICD Code: J90 - Pleural effusion, not elsewhere classified Status: Acute Assessment and Plan 06/12: Stable no fever, lymph nodes decreasing in size, continue chemotherapy treatment, hypokalemia and hypomagnesemia replace and follow BMP A/P: Acute Hypoxic Respiratory Failure Acute Submassive Pulmonary Embolism Right Heart Dysfunction Global severe left ventricular systolic dysfunction Cardiogenic Shock-resolved -- 2d echo 05/02: EF 30-35%, RV dysfunction with dilation --Repeat ECHO limited study scheduled on 05/09-RV function appears to have normalized, question of interatrial shunt for which cardiology consulted- cards recommended that once off anticoagulation, would need to be on ASA and require f/u echo periodically for evaluation. Acute Kidney Injury-resolved. Hypokalemia-replaced. hypomagnesemia- improved. -- likely secondary to cardiogenic shock -HD was discontinued. - s/p vas-cath removal- nephrology has signed off. Hyperphosphatemia-resolved. protein calorie malnutrition- severe ileus-resolved. -health data administrator following; recommended alternative form of nutrition - PEG was discussed with the patient which he again declined, he states that his appetite is better now , send this patient therapy, regular diet with thin liquids. Large Cell B-cell lymphoma leukopenia Pulmonary Embolism anemia of chronic disease -- hematology/oncology following Dr. Connelly- - received chemo CHOP regimen. -Started on EPOCH chemotherapy -continue Coumadin, colored Lovenox was subtherapeutic, monitor INR C. difficile colitis --finished the course of Vanco and Flagyl- DVT Prophylaxis: coumadin, Lovenox was subtherapeutic Discharge Planning Will keep inpatient to finish chemotherapy. Discharge once cleared by hematology. Problem Qualifiers (1) Acute pancreatitis: Tereso Foote MD Jun 12, 2017 16:58
[2017-06-12] MEDS ORDERED: MAGNESIUM SULFATE INJ 4 GM in DEXTROSE 5% IN WATER 100ML INJ 92 ML IV ONE ×2 (17:00)
[2017-06-12] MEDS: WARFARIN SOD 5 MG TAB PO SCH (18:05)
[2017-06-12] MEDS: ACETAMINOPHEN/HYDROcodone 325 MG/5 MG TAB PO PRN (23:53)
[2017-06-13] VITALS (9 sets, daily range): BP systolic 124–146; BP diastolic 79–97; PULSE 53–79; RESP 17–21; TEMP 96.1–96.8; O2SAT 95–100
[2017-06-13] MEDS: GRANISETRON INJ 1 MG, DEXAMETHASONE INJ 20 MG in SODIUM CHLORIDE 0.9% INJ 50 ML IV SCH (00:09)
[2017-06-13] MEDS: DOXORUBICIN IV SCH (00:51)
[2017-06-13] MEDS: VINCRISTINE IV SCH (00:51)
[2017-06-13] MEDS: [UNRECOGNIZED DRUG - OTHER] IV SCH (00:51)
[2017-06-13] MEDS: ETOPOSIDE IV SCH (00:51)
[2017-06-13] MEDS: ARTIFICIAL TEARS OPTH OINT 3.5 APPLIC/3.5 GM TUBO EACH EYE SCH ×3 (02:00→18:00)
[2017-06-13 06:11] LABS: BASOPHIL % 0.2 % (0.0-2.0); HEMATOCRIT 32.2 % (39.0-51.0); HEMO FLAGS DIFF FINAL; LYMPH % 3.2 % (9.0-44.0); LYMPHOCYTE # 0.2 TH/MM3 (1.0-4.8); MEAN CORPUSCULAR HEMOGLOBIN 30.1 PG (27.0-34.0); MEAN CORPUSCULAR HGB CONC 33.8 % (32.0-36.0); NEUT % 95.6 % (16.0-70.0); PLATELET COUNT 371 TH/MM3 (150-450); RED BLOOD COUNT 3.61 MIL/MM3 (4.50-5.90); RED CELL DISTRIBUTION WIDTH 16.5 % (11.6-17.2); WHITE BLOOD COUNT 5.2 TH/MM3 (4.0-11.0)
[2017-06-13 06:12] LABS: INTERNATIONAL NORMALIZED RATIO 2.1 RATIO; PROTHROMBIN TIME - PATIENT 24.1 SEC (9.8-11.6)
[2017-06-13 07:16] LABS: BICARBONATE 27.1 MEQ/L (21.0-32.0); MAGNESIUM 1.8 MG/DL (1.5-2.5); POTASSIUM 3.5 MEQ/L (3.5-5.1); TOTAL BILIRUBIN ADULT 0.3 MG/DL (0.2-1.0)
[2017-06-13] MEDS: NIFEdipine 90 MG SUSTAINED RELEASE TAB PO SCH (10:12)
[2017-06-13] MEDS: MAGNESIUM OXIDE 400 MG TAB PO SCH ×2 (10:12→22:24)
[2017-06-13] MEDS: PANTOPRAZOLE SODIUM 40 MG VIAL IV PUSH SCH (10:12)
[2017-06-13] MEDS: ALLOPURINOL 300 MG TAB PO SCH (10:13)
[2017-06-13] MEDS: predniSONE 50 MG TAB PO SCH ×2 (10:20→22:24)
[2017-06-13] MEDS: DRONABINOL 5 MG CAP PO SCH ×2 (10:20→18:24)
[2017-06-13] MEDS: predniSONE 10 MG TAB PO SCH ×2 (10:20→22:24)
--- NOTE | 2017-06-13 10:43 | PD.ONC.PN ---
Subjective Subjective Remarks Afebrile overnight. Patient resting in bed in nad. Tolerating EPOCH chemotherapy Ate breakfast this morning. Objective Data Date Time Temp Pulse Resp B/P (MAP) Pulse Ox O2 Delivery O2 Flow Rate FiO2 06/13/17 08:55 96.1 65 20 144/84 (104) 100 06/13/17 04:00 96.8 55 17 142/88 (106) 98 06/13/17 00:57 20 06/13/17 00:00 96.6 58 17 146/85 (105) 97 06/12/17 21:00 70 06/12/17 20:00 96.7 77 18 127/86 (100) 98 06/12/17 16:00 97.8 77 18 107/73 (84) 100 06/12/17 12:00 97.0 77 18 150/83 (105) 100 06/12/17 12:00 85 06/13/17 06/13/17 06/13/17 07:00 15:00 23:00 Intake Total 1488 ml Output Total 1050 ml Balance 438 ml Result Diagram: 06/13/17 0355 06/13/17 0355 Laboratory Results Laboratory Tests Test 06/12/17 13:55 06/13/17 03:55 White Blood Count 5.6 TH/MM3 5.2 TH/MM3 Red Blood Count 3.24 MIL/MM3 3.61 MIL/MM3 Hemoglobin 10.1 GM/DL 10.9 GM/DL Hematocrit 29.0 % 32.2 % Mean Corpuscular Volume 89.6 FL 89.0 FL Mean Corpuscular Hemoglobin 31.1 PG 30.1 PG Mean Corpuscular Hemoglobin Concent 34.7 % 33.8 % Red Cell Distribution Width 16.7 % 16.5 % Platelet Count 327 TH/MM3 371 TH/MM3 Mean Platelet Volume 7.3 FL 7.4 FL Neutrophils (%) (Auto) 87.1 % 95.6 % Lymphocytes (%) (Auto) 7.3 % 3.2 % Monocytes (%) (Auto) 5.5 % 1.0 % Eosinophils (%) (Auto) 0.0 % 0.0 % Basophils (%) (Auto) 0.1 % 0.2 % Neutrophils # (Auto) 4.9 TH/MM3 5.0 TH/MM3 Lymphocytes # (Auto) 0.4 TH/MM3 0.2 TH/MM3 Monocytes # (Auto) 0.3 TH/MM3 0.1 TH/MM3 Eosinophils # (Auto) 0.0 TH/MM3 0.0 TH/MM3 Basophils # (Auto) 0.0 TH/MM3 0.0 TH/MM3 CBC Comment DIFF FINAL DIFF FINAL Differential Comment Blood Urea Nitrogen 12 MG/DL 12 MG/DL Creatinine 0.67 MG/DL 0.57 MG/DL Random Glucose 120 MG/DL 123 MG/DL Total Protein 5.8 GM/DL 5.8 GM/DL Albumin 2.1 GM/DL 2.1 GM/DL Calcium Level 7.1 MG/DL 7.3 MG/DL Phosphorus Level 2.5 MG/DL Magnesium Level 1.1 MG/DL 1.8 MG/DL Alkaline Phosphatase 81 U/L 82 U/L Aspartate Amino Transf (AST/SGOT) 17 U/L 12 U/L Alanine Aminotransferase (ALT/SGPT) 15 U/L 17 U/L Total Bilirubin 0.3 MG/DL 0.3 MG/DL Sodium Level 140 MEQ/L 136 MEQ/L Potassium Level 3.0 MEQ/L 3.5 MEQ/L Chloride Level 101 MEQ/L 102 MEQ/L Carbon Dioxide Level 27.3 MEQ/L 27.1 MEQ/L Anion Gap 12 MEQ/L 7 MEQ/L Estimat Glomerular Filtration Rate 153 ML/MIN 184 ML/MIN Protein Corrected Calcium 7.8 MG/DL 8.0 MG/DL Prothrombin Time 24.1 SEC Prothromb Time International Ratio 2.1 RATIO Administered Medications Medications (Trade) Dose Ordered Sig/Shyla Route PRN Reason Start Time Stop Time Status Last Admin Dose Admin Sodium Chloride (NS Flush) 2 ml UNSCH PRN IV FLUSH FLUSH AFTER USING IV ACCESS 04/18/17 17:30 06/06/17 09:18 Nifedipine (Procardia Xl) 90 mg DAILY PO 04/28/17 09:00 06/13/17 10:12 Clonidine (Catapres) 0.1 mg Q6H PRN PO SBP>160, DBP>90 04/27/17 15:00 04/29/17 08:07 Ondansetron HCl (Zofran Inj) 4 mg Q6HR PRN IV PUSH NAUSEA OR VOMITING 04/30/17 11:30 05/07/17 10:06 Promethazine HCl (Phenergan Inj) 25 mg Q6H PRN IM NAUSEA OR VOMITING 04/30/17 11:30 05/01/17 13:27 Acetaminophen/ Hydrocodone Bitart ([place] 5-325 Mg) 1 tab Q6H PRN PO PAIN SCALE 1 TO 10 04/30/17 11:30 06/12/17 23:53 Albuterol/ Ipratropium (Duoneb Neb) 1 ampule Q2HR NEB PRN INH WHEEZING 05/02/17 10:00 05/08/17 08:08 Pantoprazole Sodium (Protonix Inj) 40 mg DAILY IV PUSH 05/07/17 12:00 06/13/17 10:12 Artificial Tears (Lacrilube Opht Oint) 1 applic Q8H EACH EYE 05/07/17 18:00 06/03/17 19:02 Dronabinol (Marinol) 5 mg BID@11,16 PO 05/14/17 16:00 06/13/17 10:20 Allopurinol (Zyloprim) 300 mg DAILY PO 05/28/17 09:00 06/13/17 10:13 Magnesium Oxide (Mag-Ox) 400 mg Q12HR PO 05/28/17 09:00 06/13/17 10:12 Multi-Ingredient Ointment (Eucerin Cream) 1 applic Q6H PRN TOPICAL DRY SKIN 05/31/17 14:00 05/31/17 17:46 Heparin Sodium (Porcine) (Heparin Central Flush) 500 units UNSCH IV FLUSH 06/06/17 20:00 06/06/17 21:17 Prednisone (Deltasone) 100 mg Q12H PO 06/09/17 11:00 06/13/17 23:01 06/13/17 10:20 Prednisone (Deltasone) 10 mg Q12H PO 06/09/17 11:00 06/13/17 23:01 06/13/17 10:20 Etoposide 91.5 mg/ Doxorubicin HCl 18.3 mg/ Vincristine Sulfate 0.7 mg/ Sodium Chloride 514.425 ml @ 21.024 mls/hr Q24H IV 06/09/17 13:00 06/13/17 12:59 06/13/17 00:51 Sodium Chloride 1,000 ml @ 50 mls/hr Q20H IV 06/09/17 09:00 06/12/17 09:19 Warfarin Sodium (Coumadin) 5 mg DAILY@1600 PO 06/10/17 16:00 Future hold 06/12/17 18:05 Objective Remarks GENERAL: Middle aged male sitting up in bed watching TV SKIN: Warm and dry. HEAD: Normocephalic. EYES: No injection or drainage. NECK: Supple, trachea midline. CARDIOVASCULAR: Regular rate and rhythm RESPIRATORY: Breath sounds equal bilaterally. No accessory muscle use. GASTROINTESTINAL: Abdomen soft, non-tender, nondistended. EXTREMITIES: No cyanosis NEUROLOGICAL: No obvious focal deficit. Awake, alert, and oriented x3. 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 --Received Rituxan x1. --05/18-->CHOP chemotherapy -- R-EPOCH chemotherapy started on 06/08. estimated completion on 06/13 at midnight. (2) Pulmonary emboli ICD Codes: I26.99 - Other pulmonary embolism without acute cor pulmonale Status: Resolved Plan: --On coumadin --CTA showed large PE --s/p tpa therapy on 7.2 --INR daily Assessment 47y/o male admitted with pancreatitis, found to have NHL. Have some response to R_CHOP but the masses seems more prominent again worrisome for progression of disease. Plan 1. continue EPOCH chemotherapy 2. monitor CBC, CMP 3. continue coumadin. Attending Statement The exam, history, and the medical decision-making described in the above note were completed with the assistance of the mid-level provider. I reviewed and agree with the findings presented. I attest that I had a [id number] encounter with the patient on the same day, and personally performed and documented my assessment and findings in the medical record. Patient seen and examined, pathology, vital signs, labs, and microbiology, chemotherapy orders and art sales consultant reports reviewed. 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 Presently on systemic therapy with R-EPOCH, he is currently on the doxorubicin/ etoposide infusion. He tells me the lymph nodes on either side of his neck have essentially resolved. He denies fevers or chills, he denies difficulty breathing, he denies chest pain and denies overt bleeding. He tells me he does not have diarrhea and has been eating well. He is tolerating chemotherapy without significant difficulties. The plan is to continue with the current treatment regimen. Problem Qualifiers (1) Non-Hodgkin lymphoma: Brenda Platt Jun 13, 2017 10:43 Johnny Stinson MD Jun 13, 2017 15:23
--- NOTE | 2017-06-13 13:49 | HHI.PR ---
Subjective Remarks Written by Nancy Brunner, acting as scribe for Dr. Foote on 06/13/17 at 13:39. Follow up Non-Hodgkins lymphoma and PE. Patient seen and examined today. Lying in bed comfortably. Denies any new acute complaints overnight. Slept well. Denies any recent fever, chills, cough, shortness of breath, ab pain, n/v/d or dysuria. Objective Vitals Vital Signs Date Time Temp Pulse Resp B/P (MAP) Pulse Ox O2 Delivery O2 Flow Rate FiO2 06/13/17 12:27 96.4 54 20 141/79 (99) 95 06/13/17 08:55 96.1 65 20 144/84 (104) 100 06/13/17 04:00 96.8 55 17 142/88 (106) 98 06/13/17 00:57 20 06/13/17 00:00 96.6 58 17 146/85 (105) 97 06/12/17 21:00 70 06/12/17 20:00 96.7 77 18 127/86 (100) 98 06/12/17 16:00 97.8 77 18 107/73 (84) 100 I/O 06/12/17 06/12/17 06/12/17 06/13/17 06/13/17 06/13/17 07:00 15:00 23:00 07:00 15:00 23:00 Intake Total 3704 ml 1440 ml 1488 ml Output Total 1650 ml 1425 ml 1050 ml Balance 2054 ml 15 ml 438 ml Intake Oral 480 ml 1440 ml IV Total 3224 ml 1488 ml Output Urine Total 1650 ml 1425 ml 1050 ml # Voids 1 # Bowel Movements 1 Result Diagram: 06/13/17 0355 06/13/17 0355 Imaging Last Impressions Chest X-Ray 06/10/17 0000 Signed Impressions: Service Date/Time: Saturday, June 10, 2017 13:04 - CONCLUSION: Basilar infiltrates and effusions. Right paratracheal mass Tacos Garcia MD Abdomen X-Ray 05/15/17 0600 Signed Impressions: Service Date/Time: Monday, May 15, 2017 04:29 - CONCLUSION: Findings of mild small bowel ileus. There has been no significant change when compared to the prior exam. Jadon Carroll MD Central Venous Line 05/15/17 0000 Signed Impressions: Service Date/Time: Monday, May 15, 2017 00:00 - CONCLUSION: Uncomplicated catheter removal. Bryon Calero Jr., MD Catheter Placement X-Ray 05/15/17 0000 Signed Impressions: Service Date/Time: Monday, May 15, 2017 15:13 - CONCLUSION: Mild narrowing involving the brachiocephalic vein near its junction with the SVC. This is not flow limiting. A left-sided vas catheter was placed. Bryon Calero Jr., MD Abdomen/Pelvis CT 05/09/17 0000 Signed Impressions: Service Date/Time: Tuesday, May 09, 2017 21:16 - CONCLUSION: 1. Diffusely distended loops of small bowel down to the cecum suggest ileus. 2. Evidence of mesenteric and retroperitoneal adenopathy. 3. Large bilateral pleural effusions , moderate amount of free fluid in the pelvis and mild ascites in the upper abdomen. 4. Abnormal appearance to the parenchyma of the right kidney with patchy areas of hyperdensity in a mosaic pattern. This of uncertain significance. The patient had iodinated contrast for a CT pulmonary angiogram 7 days ago; this could potentially represent residual parenchymal contrast which would be nonspecific, but raises the possibility of either obstruction or renal infarctions. Bryon Evans MD Renal Ultrasound 05/05/17 0000 Signed Impressions: Service Date/Time: Friday, May 05, 2017 20:06 - CONCLUSION: 1. Kidneys are borderline echogenic which can be seen with medical renal disease. 2. No evidence of hydronephrosis. 3. Abdominal ascites. 4. Multiple dilated bowel loops. 5. Bilateral pleural effusions. Tray Patel MD Head CT 05/03/17 0000 Signed Impressions: Service Date/Time: Wednesday, May 03, 2017 17:22 - CONCLUSION: No acute intracranial disease. No hemorrhage seen. Tray Patel MD CT Angiography 05/02/17 0000 Signed Impressions: Service Date/Time: Tuesday, May 02, 2017 11:10 - CONCLUSION: 1. There is pulmonary embolus in the right pulmonary artery, right upper lobe and lower lobe branches. 2. Resorption of previously seen gas in the left axilla with fluid collection at this site with postprocedural change and possibly postprocedural hemorrhage not significantly changed in size. 3. Interval development of right lung airspace process may represent postobstructive pneumonia and there is mucus within the trachea not present yesterday. 4. Right pleural effusion is smaller and left pleural effusion is larger. 5. No change in bulky adenopathy. Leonor Chavez MD Upper Extremity Ultrasound 04/30/17 0000 Signed Impressions: Service Date/Time: April 12:25 - CONCLUSION: There some superficial thrombosis of a vein in the forearm. The deep venous system is patent. Large fluid collection left axilla. Significant soft tissue edema throughout the upper arm. Rinku Hillman MD Thoracentesis Ultrasound 04/30/17 0000 Signed Impressions: Service Date/Time: April 12:14 - CONCLUSION: Uncomplicated ultrasound guided thoracentesis. Tray Patel MD Port Line Insertion 04/27/17 0000 Signed Impressions: Service Date/Time: Thursday, April 27, 2017 14:56 - CONCLUSION: 1. Bulky bilateral lower cervical lymphadenopathy. 2. Uncomplicated ultrasound and fluoroscopic guided implanted central venous port catheter placement as described in detail above. An 8 [employer] port was placed. Liang Peralta MD Bone Biopsy CT 04/27/17 0000 Signed Impressions: Service Date/Time: Thursday, April 27, 2017 16:22 - CONCLUSION: 1. Uncomplicated CT guided bone marrow aspirate. 2. Uncomplicated CT guided bone marrow biopsy. Tray Patel MD Chest CT 04/25/17 0000 Signed Impressions: Service Date/Time: Wednesday, April 26, 2017 19:00 - CONCLUSION: The right pleural effusion is slightly larger on the left side has not changed. Extensive bulky adenopathy as before and malignancies such as lymphoma is suspected. Leonor Chavez MD Gall Bladder Ultrasound 04/22/17 0000 Signed Impressions: Service Date/Time: Saturday, April 22, 2017 07:35 - CONCLUSION: Small liver with focal abdomen only incompletely evaluated. Large right pleural effusion. effusion. Kirk Briceño MD FACR Abdomen CT 04/20/17 0000 Signed Impressions: Service Date/Time: Thursday, April 20, 2017 19:40 - CONCLUSION: Limited exam because of lack of intravenous contrast. Lymphoma is suspected. Pathological diagnosis could be obtained with ultrasound biopsy of the cervical, axillary or inguinal adenopathy. Kirk Briceño MD FACR Objective Remarks GENERAL: This is a well-nourished, well-developed patient, in no apparent distress. SKIN: No rashes, warm and dry HEAD: Atraumatic. Normocephalic. EYES: Pupils equal round and reactive. Extraocular motions intact. No scleral icterus. ENT: Nose without bleeding, or drainage, Airway patent. NECK: Trachea midline. Supple CARDIOVASCULAR: Regular rate and rhythm without murmurs, gallops, or rubs. RESPIRATORY: Fair air entry bilaterally. No wheezes, rales, or rhonchi. GASTROINTESTINAL: Abdomen soft, non-tender, nondistended. Positive bowel sounds x 4 q. MUSCULOSKELETAL: Extremities without clubbing, cyanosis, or edema. DP and Pedal pulses appreciated NEUROLOGICAL: Awake and alert. Moves all extremity. Normal speech. no focal neurological deficit Procedures 04/[address] excision biopsy 04/27- port placement 05/02-TPA 05/06-left IJ Vas-Cath placement endotracheal intubation A/P Problem List: (1) Acute pancreatitis ICD Code: K85.90 - Acute pancreatitis without necrosis or infection, unspecified Status: Resolved (2) Transaminitis ICD Code: R74.0 - Nonspecific elevation of levels of transaminase and lactic acid dehydrogenase [LDH] Status: Acute (3) ALDO (acute kidney injury) ICD Code: N17.9 - Acute kidney failure, unspecified Status: Resolved (4) Pleural effusion ICD Code: J90 - Pleural effusion, not elsewhere classified Status: Acute Assessment and Plan Acute Hypoxic Respiratory Failure Acute Submassive Pulmonary Embolism Right Heart Dysfunction Global severe left ventricular systolic dysfunction Cardiogenic Shock-resolved - 2d echo 05/02: EF 30-35%, RV dysfunction with dilation - Repeat ECHO limited study scheduled on 05/09 - RV function appears to have normalized, question of interatrial shunt for which cardiology consulted, recommendations that once off anticoagulation, would need to be on ASA and require f/u echo periodically for evaluation. Follow. Acute Kidney Injury-resolved. Hypokalemia-replaced. hypomagnesemia- improved. - Likely secondary to cardiogenic shock - HD was discontinued. - s/p vas-cath removal - nephrology has signed off. - BMP reviewed today showing improvement in electrolytes. Hyperphosphatemia-resolved. protein calorie malnutrition- severe ileus-resolved. - Photographs Curator following; recommended alternative form of nutrition - PEG was discussed with the patient which he again declined, he states that his appetite is better now, regular diet with thin liquids. Large Cell B-cell lymphoma Leukopenia Pulmonary Embolism anemia of chronic disease - Hematology/oncology following, Dr. Connelly - Received chemo CHOP regimen. - Started on EPOCH chemotherapy - Continue Coumadin, colored Lovenox was subtherapeutic, monitor INR, 2.1 today 06/13. Follow daily. - Monitor for fevers. C. difficile colitis, resolved: Diarrhea improved. Finished course of Vanco and Flagyl DVT Prophylaxis: Coumadin Discharge Planning Will keep inpatient to finish chemotherapy. Discharge once cleared by hematology. Attending Statement This note was transcribed by scribe [Nancy brunner]. I, Dr. Tereso Foote personally performed the history, physical exam, and medical decision making; and confirmed the accuracy of the information in the transcribed note. Authenticated by Dr. Tereso Foote on 06/13/17 at 13:42. Problem Qualifiers (1) Acute pancreatitis: Nancy Brunner Jun 13, 2017 13:49 Tereso Foote MD Jun 13, 2017 16:32
[2017-06-13] MEDS ORDERED: SODIUM CHLORID 0.9% IV ONE (15:00)
[2017-06-13] MEDS ORDERED: CYCLOPHOSPHAMIDE IV ONE (15:00)
[2017-06-13] MEDS: WARFARIN SOD 5 MG TAB PO SCH (18:24)
[2017-06-14] VITALS (11 sets, daily range): BP systolic 118–153; BP diastolic 65–93; PULSE 61–78; RESP 17–21; TEMP 96.2–98.1; O2SAT 94–99
[2017-06-14] MEDS: SODIUM CHLOR 0.9% 1000 ML INJ 1,000 ML IV SCH ×2 (01:43→16:43)
[2017-06-14] MEDS: ARTIFICIAL TEARS OPTH OINT 3.5 APPLIC/3.5 GM TUBO EACH EYE SCH ×3 (01:46→18:00)
[2017-06-14 05:56] LABS: AUTOMATED NEUTROPHIL # 4.6 TH/MM3 (1.8-7.7); HEMATOCRIT 30.3 % (39.0-51.0); HEMO FLAGS DIFF FINAL; LYMPH % 3.4 % (9.0-44.0); LYMPHOCYTE # 0.2 TH/MM3 (1.0-4.8); MEAN CELL VOLUME 89.5 FL (80.0-100.0); MEAN CORPUSCULAR HEMOGLOBIN 30.1 PG (27.0-34.0); MEAN CORPUSCULAR HGB CONC 33.6 % (32.0-36.0); MONO % 1.1 % (0.0-8.0); NEUT % 95.5 % (16.0-70.0); PLATELET COUNT 363 TH/MM3 (150-450); RED BLOOD COUNT 3.39 MIL/MM3 (4.50-5.90); RED CELL DISTRIBUTION WIDTH 16.4 % (11.6-17.2); WHITE BLOOD COUNT 4.8 TH/MM3 (4.0-11.0)
[2017-06-14 06:09] LABS: INTERNATIONAL NORMALIZED RATIO 2.6 RATIO; PROTHROMBIN TIME - PATIENT 30.1 SEC (9.8-11.6)
[2017-06-14 06:10] LABS: BICARBONATE 28.3 MEQ/L (21.0-32.0); MAGNESIUM 1.5 MG/DL (1.5-2.5); POTASSIUM 3.2 MEQ/L (3.5-5.1)
[2017-06-14 06:13] LABS: TOTAL BILIRUBIN ADULT 0.3 MG/DL (0.2-1.0)
[2017-06-14] MEDS: MAGNESIUM OXIDE 400 MG TAB PO SCH ×2 (08:56→20:06)
[2017-06-14] MEDS: PANTOPRAZOLE SODIUM 40 MG VIAL IV PUSH SCH (08:56)
[2017-06-14] MEDS: NIFEdipine 90 MG SUSTAINED RELEASE TAB PO SCH (08:56)
[2017-06-14] MEDS: ALLOPURINOL 300 MG TAB PO SCH (08:56)
--- NOTE | 2017-06-14 09:16 | HHI.PR ---
Subjective Remarks Follow up Non-Hodgkins lymphoma and PE. Patient seen and examined today. Lying in bed comfortably. Denies any new acute complaints overnight. Slept well. Denies any recent fever, chills, cough, shortness of breath, ab pain, n/v/d or dysuria. 06-14 he states, he is eating okay. Abdomen bowel movements. A.m. labs Monitor INRs Physical therapy and occupational therapy Case management for discharge planning Objective Vitals Vital Signs Date Time Temp Pulse Resp B/P (MAP) Pulse Ox O2 Delivery O2 Flow Rate FiO2 06/14/17 08:51 96.2 70 20 142/93 (109) 95 06/14/17 04:00 96.2 75 17 139/92 (108) 99 06/14/17 00:00 97.1 68 17 119/75 (90) 98 06/13/17 21:30 79 06/13/17 20:00 96.4 76 17 124/87 (99) 98 06/13/17 16:33 96.3 53 21 136/97 (110) 98 06/13/17 12:27 96.4 54 20 141/79 (99) 95 06/13/17 12:00 75 I/O 06/13/17 06/13/17 06/13/17 06/14/17 06/14/17 06/14/17 06:59 14:59 22:59 06:59 14:59 22:59 Intake Total 1488 ml 480 ml 1131 ml Output Total 1050 ml 600 ml 700 ml 1000 ml Balance 438 ml -120 ml -700 ml 131 ml Intake Oral 480 ml IV Total 1488 ml 1131 ml Output Urine Total 1050 ml 600 ml 700 ml 1000 ml # Bowel Movements 1 Result Diagram: 06/14/1752106/14/17521 Other Results Laboratory Tests Test 06/12/17 04:59 06/12/17 13:55 06/13/17 03:55 06/14/17 05:22 Prothrombin Time 25.7 SEC 24.1 SEC 30.1 SEC Prothromb Time International Ratio 2.2 RATIO 2.1 RATIO 2.6 RATIO White Blood Count 5.6 TH/MM3 5.2 TH/MM3 4.8 TH/MM3 Red Blood Count 3.24 MIL/MM3 3.61 MIL/MM3 3.39 MIL/MM3 Hemoglobin 10.1 GM/DL 10.9 GM/DL 10.2 GM/DL Hematocrit 29.0 % 32.2 % 30.3 % Mean Corpuscular Volume 89.6 FL 89.0 FL 89.5 FL Mean Corpuscular Hemoglobin 31.1 PG 30.1 PG 30.1 PG Mean Corpuscular Hemoglobin Concent 34.7 % 33.8 % 33.6 % Red Cell Distribution Width 16.7 % 16.5 % 16.4 % Platelet Count 327 TH/MM3 371 TH/MM3 363 TH/MM3 Mean Platelet Volume 7.3 FL 7.4 FL 7.1 FL Neutrophils (%) (Auto) 87.1 % 95.6 % 95.5 % Lymphocytes (%) (Auto) 7.3 % 3.2 % 3.4 % Monocytes (%) (Auto) 5.5 % 1.0 % 1.1 % Eosinophils (%) (Auto) 0.0 % 0.0 % 0.0 % Basophils (%) (Auto) 0.1 % 0.2 % 0.0 % Neutrophils # (Auto) 4.9 TH/MM3 5.0 TH/MM3 4.6 TH/MM3 Lymphocytes # (Auto) 0.4 TH/MM3 0.2 TH/MM3 0.2 TH/MM3 Monocytes # (Auto) 0.3 TH/MM3 0.1 TH/MM3 0.1 TH/MM3 Eosinophils # (Auto) 0.0 TH/MM3 0.0 TH/MM3 0.0 TH/MM3 Basophils # (Auto) 0.0 TH/MM3 0.0 TH/MM3 0.0 TH/MM3 CBC Comment DIFF FINAL DIFF FINAL DIFF FINAL Differential Comment Blood Urea Nitrogen 12 MG/DL 12 MG/DL 13 MG/DL Creatinine 0.67 MG/DL 0.57 MG/DL 0.53 MG/DL Random Glucose 120 MG/DL 123 MG/DL 115 MG/DL Total Protein 5.8 GM/DL 5.8 GM/DL 5.4 GM/DL Albumin 2.1 GM/DL 2.1 GM/DL 2.0 GM/DL Calcium Level 7.1 MG/DL 7.3 MG/DL 7.1 MG/DL Phosphorus Level 2.5 MG/DL Magnesium Level 1.1 MG/DL 1.8 MG/DL 1.5 MG/DL Alkaline Phosphatase 81 U/L 82 U/L 76 U/L Aspartate Amino Transf (AST/SGOT) 17 U/L 12 U/L 15 U/L Alanine Aminotransferase (ALT/SGPT) 15 U/L 17 U/L 19 U/L Total Bilirubin 0.3 MG/DL 0.3 MG/DL 0.3 MG/DL Sodium Level 140 MEQ/L 136 MEQ/L 138 MEQ/L Potassium Level 3.0 MEQ/L 3.5 MEQ/L 3.2 MEQ/L Chloride Level 101 MEQ/L 102 MEQ/L 103 MEQ/L Carbon Dioxide Level 27.3 MEQ/L 27.1 MEQ/L 28.3 MEQ/L Anion Gap 12 MEQ/L 7 MEQ/L 7 MEQ/L Estimat Glomerular Filtration Rate 153 ML/MIN 184 ML/MIN 200 ML/MIN Protein Corrected Calcium 7.8 MG/DL 8.0 MG/DL 8.0 MG/DL Imaging Last Impressions Chest X-Ray 06/10/17 0000 Signed Impressions: Service Date/Time: Saturday, June 10, 2017 13:04 - CONCLUSION: Basilar infiltrates and effusions. Right paratracheal mass Tacos Garcia MD Abdomen X-Ray 05/15/17 0600 Signed Impressions: Service Date/Time: Monday, May 15, 2017 04:29 - CONCLUSION: Findings of mild small bowel ileus. There has been no significant change when compared to the prior exam. Jadon Carroll MD Central Venous Line 05/15/17 0000 Signed Impressions: Service Date/Time: Monday, May 15, 2017 00:00 - CONCLUSION: Uncomplicated catheter removal. Bryon Calero Jr., MD Catheter Placement X-Ray 05/15/17 0000 Signed Impressions: Service Date/Time: Monday, May 15, 2017 15:13 - CONCLUSION: Mild narrowing involving the brachiocephalic vein near its junction with the SVC. This is not flow limiting. A left-sided vas catheter was placed. Bryon Calero Jr., MD Abdomen/Pelvis CT 05/09/17 0000 Signed Impressions: Service Date/Time: Tuesday, May 09, 2017 21:16 - CONCLUSION: 1. Diffusely distended loops of small bowel down to the cecum suggest ileus. 2. Evidence of mesenteric and retroperitoneal adenopathy. 3. Large bilateral pleural effusions , moderate amount of free fluid in the pelvis and mild ascites in the upper abdomen. 4. Abnormal appearance to the parenchyma of the right kidney with patchy areas of hyperdensity in a mosaic pattern. This of uncertain significance. The patient had iodinated contrast for a CT pulmonary angiogram 7 days ago; this could potentially represent residual parenchymal contrast which would be nonspecific, but raises the possibility of either obstruction or renal infarctions. Bryon Evans MD Renal Ultrasound 05/05/17 Signed Impressions: Service Date/Time: Friday, May 05, 2017 20:06 - CONCLUSION: 1. Kidneys are borderline echogenic which can be seen with medical renal disease. 2. No evidence of hydronephrosis. 3. Abdominal ascites. 4. Multiple dilated bowel loops. 5. Bilateral pleural effusions. Tray Patel MD Head CT 05/03/17 Signed Impressions: Service Date/Time: Wednesday, May 03, 2017 17:22 - CONCLUSION: No acute intracranial disease. No hemorrhage seen. Tray Patel MD CT Angiography 05/02/17 Signed Impressions: Service Date/Time: Tuesday, May 02, 2017 11:10 - CONCLUSION: 1. There is pulmonary embolus in the right pulmonary artery, right upper lobe and lower lobe branches. 2. Resorption of previously seen gas in the left axilla with fluid collection at this site with postprocedural change and possibly postprocedural hemorrhage not significantly changed in size. 3. Interval development of right lung airspace process may represent postobstructive pneumonia and there is mucus within the trachea not present yesterday. 4. Right pleural effusion is smaller and left pleural effusion is larger. 5. No change in bulky adenopathy. KBlack Chavez MD Upper Extremity Ultrasound 04/30/17 Signed Impressions: Service Date/Time: April 12:25 - CONCLUSION: There some superficial thrombosis of a vein in the forearm. The deep venous system is patent. Large fluid collection left axilla. Significant soft tissue edema throughout the upper arm. Rinku Hillman MD Thoracentesis Ultrasound 04/30/17 Signed Impressions: Service Date/Time: April 12:14 - CONCLUSION: Uncomplicated ultrasound guided thoracentesis. Tray Patel MD Port Line Insertion 04/27/17 Signed Impressions: Service Date/Time: Thursday, April 27, 2017 14:56 - CONCLUSION: 1. Bulky bilateral lower cervical lymphadenopathy. 2. Uncomplicated ultrasound and fluoroscopic guided implanted central venous port catheter placement as described in detail above. An 8 [employer] port was placed. Liang Peralta MD Bone Biopsy CT 04/27/17 0000 Signed Impressions: Service Date/Time: Thursday, April 27, 2017 16:22 - CONCLUSION: 1. Uncomplicated CT guided bone marrow aspirate. 2. Uncomplicated CT guided bone marrow biopsy. Tray Patel MD Chest CT 04/25/17 0000 Signed Impressions: Service Date/Time: Wednesday, April 26, 2017 19:00 - CONCLUSION: The right pleural effusion is slightly larger on the left side has not changed. Extensive bulky adenopathy as before and malignancies such as lymphoma is suspected. Leonor Chavez MD Gall Bladder Ultrasound 04/22/17 0000 Signed Impressions: Service Date/Time: Saturday, April 22, 2017 07:35 - CONCLUSION: Small liver with focal abdomen only incompletely evaluated. Large right pleural effusion. effusion. Kirk Briceño MD FACR Abdomen CT 04/20/17 0000 Signed Impressions: Service Date/Time: Thursday, April 20, 2017 19:40 - CONCLUSION: Limited exam because of lack of intravenous contrast. Lymphoma is suspected. Pathological diagnosis could be obtained with ultrasound biopsy of the cervical, axillary or inguinal adenopathy. Kirk Briceño MD FACR Objective Remarks GENERAL: This is a well-nourished, well-developed patient, in no apparent distress. SKIN: No rashes, warm and dry HEAD: Atraumatic. Normocephalic. EYES: Pupils equal round and reactive. Extraocular motions intact. No scleral icterus. ENT: Nose without bleeding, or drainage, Airway patent. Tongue is midline ORAL mucosa is moist NECK: Trachea midline. Supple no obvious JVD CARDIOVASCULAR: Regular rate and rhythm without murmurs, gallops, or rubs. S1- S2 no S3 or S4 no heave or thrill RESPIRATORY: Fair air entry bilaterally. No wheezes, rales, or rhonchi. GASTROINTESTINAL: Abdomen soft, non-tender, nondistended. Positive bowel sounds x 4 q. MUSCULOSKELETAL: Extremities without clubbing, cyanosis, or edema. DP and Pedal pulses appreciated NEUROLOGICAL: Awake and alert. Moves all extremity. Normal speech. no focal neurological deficit Insight and judgment are good Mood and behavior appropriate Procedures 04/[address] excision biopsy 04/27- port placement 05/02-TPA 05/06-left IJ Vas-Cath placement endotracheal intubation Medications and IVs Current Medications Ondansetron HCl (Zofran Inj) 4 mg ONCE ONCE IVP Last administered on 04/18/17 17:38; Start 04/18/17 at 17:30; Stop 04/18/17 at 17:31; Status DC Sodium Chloride 1,000 ml @ 1,000 mls/hr Q1H IV Last administered on 04/18/17 17:38; Start 04/18/17 at 17:16; Stop 04/18/17 at 18:15; Status DC Sodium Chloride (NS Flush) 2 ml UNSCH PRN IV FLUSH FLUSH AFTER USING IV ACCESS Last administered on 06/06/17 09:18; Start 04/18/17 at 17:30 Sodium Chloride 1,000 ml @ 1,000 mls/hr Q1H IV Last administered on 04/18/17 18:40; Start 04/18/17 at 18:37; Stop 04/18/17 at 19:36; Status DC Potassium Chloride 100 ml @ 50 mls/hr Q2H IV Last administered on 04/18/17 22: 12; Start 04/18/17 at 19:00; Stop 04/18/17 at 22:59; Status DC Ondansetron HCl (Zofran Inj) 4 mg Q6H PRN IVP NAUSEA OR VOMITING Last administered on 04/26/17 06:04; Start 04/18/17 at 19:30; Stop 04/26/17 at 13:02 ; Status DC Morphine Sulfate (Morphine Inj) 2 mg Q3H PRN IV Pain 3-5; if unable to take PO ; Start 04/18/17 at 19:30; Status Cancel Morphine Sulfate (Morphine Inj) 4 mg Q3H PRN IV Pain 6-10;if unable to take PO ; Start 04/18/17 at 19:30; Status Cancel Naloxone HCl (Narcan Inj) 0.4 mg UNSCH PRN IV SEE LABEL COMMENTS; Start at 19:30 Senna/Docusate Sodium (Porsha-Colace) 1 tab BID PO Last administered on 07:52; Start 04/18/17 at 21:00; Stop 05/13/17 at 17:16; Status DC Magnesium Hydroxide (Milk Of Magnesia Liq) 30 ml Q12H PRN PO MILD - MODERATE CONSTIPATION Last administered on 05/09/17 08:01; Start 04/18/17 at 19:30; Stop 05/13/17 at 17:16; Status DC Sennosides (Senokot) 17.2 mg Q12H PRN PO MODERATE - SEVERE CONSTIPATION; Start 04/18/17 at 19:30; Stop 05/13/17 at 17:16; Status DC Bisacodyl (Dulcolax Supp) 10 mg DAILY PRN RECTAL SEVERE CONSITIPATION; Start at 19:30; Stop 05/13/17 at 17:16; Status DC Lactulose (Lactulose Liq) 30 ml DAILY PRN PO SEVERE CONSITIPATION; Start at 19:30; Stop 05/13/17 at 17:16; Status DC Potassium Chloride/Sodium Chloride 1,000 ml @ 125 mls/hr Q8H IV ; Start at 21:00; Stop 04/18/17 at 21:00; Status DC Potassium Chloride/Sodium Chloride 1,000 ml @ 83 mls/hr Q12H3M IV Last administered on 04/23/17 01:19; Start 04/19/17 at 02:00; Stop 04/23/17 at 09:04 ; Status DC Sodium Chloride 1,000 ml @ 125 mls/hr Q8H IV Last administered on 04/18/17 20: 00; Start 04/18/17 at 20:00; Stop 04/19/17 at 16:01; Status DC Pneumococcal Polyvalent Vaccine (Pneumovax-23 Inj) 25 mcg ONCE ONCE IM Last administered on 04/19/17 11:20; Start 04/19/17 at 09:00; Stop 04/19/17 at 09:01; Status DC Ceftriaxone Sodium 1000 mg/ Sodium Chloride 100 ml @ 200 mls/hr Q24H IV Last administered on 04/24/17 12:51; Start 04/19/17 at 13:00; Stop 04/24/17 at 14:33 ; Status DC Heparin Sodium (Porcine) (Heparin Inj) 5,000 units Q8HR SQ Last administered on 05/02/17 12:46; Start 04/19/17 at 14:00; Stop 05/19/17 at 10:23; Status DC Azithromycin (Zithromax) 500 mg Q24H PO Last administered on 04/24/17 12:51; Start 04/19/17 at 13:00; Stop 04/24/17 at 14:33; Status DC Clonidine (Catapres) 0.1 mg ONCE ONCE PO Last administered on 04/20/17 22:16 ; Start 04/20/17 at 21:45; Stop 04/20/17 at 21:46; Status DC Nifedipine (Procardia Xl) 30 mg DAILY PO Last administered on 04/25/17 09:42; Start 04/21/17 at 17:00; Stop 04/25/17 at 13:12; Status DC Hydralazine HCl (Apresoline Inj) 10 mg Q6HR PRN IV PUSH SBP>160, DBP>90 Last administered on 04/27/17 10:15; Start 04/21/17 at 17:00; Stop 06/05/17 at 10:42 ; Status DC Cefazolin Sodium 1000 mg/Sodium Chloride 100 ml @ 200 mls/hr [employer] IV ; Start 04/21/17 at 21:30; Stop 04/24/17 at 21:29; Status DC Midazolam HCl (Versed Inj) 2 mg STK-MED ONCE .ROUTE Last administered on 09:02; Start 04/22/17 at 09:02; Stop 04/22/17 at 09:03; Status DC Bupivacaine HCl/ Epinephrine Bitart (Sensorcaine-Epi 0.5% 50 ml Inj) 50 ml STK- MED ONCE INFIL ; Start 04/22/17 at 09:25; Stop 04/22/17 at 09:26; Status Cancel Albuterol Sulfate (*ALBUTEROL NEB PERIprocedure ONLY) 2.5 mg STK-MED ONCE NEB Last administered on 04/22/17 10:06; Start 04/22/17 at 10:06; Stop 04/22/17 at 10:07; Status DC Fentanyl Citrate (fentaNYL INJ) 200 mcg STK-MED ONCE .ROUTE ; Start 04/22/17 at 10:10; Stop 04/22/17 at 10:11; Status DC Bupivacaine HCl (Marcaine Pf 0.5% Inj) 30 ml STK-MED ONCE INFIL Last administered on 04/22/17 09:25; Start 04/22/17 at 09:25; Stop 04/22/17 at 10:49 ; Status DC Miscellaneous Information ALL NURSING DEPARTME... UNSCH PRN .XX SEE LABEL COMMENTS; Start 04/22/17 at 10:01; Stop 04/23/17 at 10:00; Status DC Dextrose/Sodium Chloride 1,000 ml @ 60 mls/hr [id number] IV Last administered on 04/24/17 06:40; Start 04/23/17 at 12:45; Stop 04/24/17 at 14:36; Status DC Potassium Chloride 30 meq/ Dextrose/Sodium Chloride 1,015 ml @ 70 mls/hr [id number] IV Last administered on 04/25/17 05:34; Start 04/24/17 at 16:00; Stop 04/25/17 at 13:12; Status DC Promethazine HCl (Phenergan Inj) 25 mg ONCE ONCE IM Last administered on 11:55; Start 04/25/17 at 08:00; Stop 04/25/17 at 08:01; Status DC Nifedipine (Procardia Xl) 60 mg DAILY PO Last administered on 04/27/17 10:02; Start 04/26/17 at 09:00; Stop 04/27/17 at 14:48; Status DC Potassium Chloride 30 meq/ Dextrose/Sodium Chloride 1,015 ml @ 60 mls/hr [id number] IV Last administered on 04/27/17 18:18; Start 04/25/17 at 15:00; Stop 04/28/17 at 11:49; Status DC Promethazine HCl (Phenergan Inj) 12.5 mg Q8H PRN IM PERSISTENT NAUSEA Last administered on 04/30/17 04:34; Start 04/26/17 at 13:15; Stop 04/30/17 at 11:28 ; Status DC Allopurinol (Zyloprim) 300 mg DAILY PO Last administered on 05/05/17 08:12; Start 04/27/17 at 09:00; Stop 05/05/17 at 12:10; Status DC Vancomycin HCl 1000 mg/Sodium Chloride 250 ml @ 250 mls/hr [employer] IV Last administered on 04/27/17 13:49; Start 04/27/17 at 10:00; Stop 04/30/17 at 09:59 ; Status DC Cefazolin Sodium/ Dextrose 50 ml @ 100 mls/hr [employer] IV Last administered on 04/27/17 15:42; Start 04/27/17 at 10:00; Stop 04/30/17 at 09:59; Status DC Nifedipine (Procardia Xl) 90 mg DAILY PO Last administered on 06/14/17 08:56; Start 04/28/17 at 09:00 Clonidine (Catapres) 0.1 mg Q12HR PO ; Start 04/27/17 at 21:00; Status UNV Clonidine (Catapres) 0.1 mg Q6H PRN PO SBP>160, DBP>90 Last administered on 08:07; Start 04/27/17 at 15:00 Heparin Sodium (Porcine) (*HEPARIN CENTRAL FLUSH PERIprocedural ONLY) 500 units STK-MED ONCE IV FLUSH Last administered on 04/27/17 14:51; Start 04/27/17 at 14:51; Stop 04/27/17 at 14:52; Status DC Lidocaine/ Epinephrine (Xylocaine-Epi 1%-1:100,000 Inj) 20 ml STK-MED ONCE .ROUTE Last administered on 04/27/17 14:51; Start 04/27/17 at 14:51; Stop at 14:52; Status DC Midazolam HCl (Versed Inj) 5 mg STK-MED ONCE .ROUTE Last administered on 14:52; Start 04/27/17 at 14:52; Stop 04/27/17 at 14:53; Status DC Fentanyl Citrate (fentaNYL INJ) 250 mcg STK-MED ONCE .ROUTE Last administered on 04/27/17 14:53; Start 04/27/17 at 14:53; Stop 04/27/17 at 14:54; Status DC Sodium Chloride 1,000 ml @ 100 mls/hr Q10H IV Last administered on 04/29/17 17:55; Start 04/29/17 at 15:00; Stop 04/30/17 at 00:59; Status DC Acetaminophen (Tylenol) 650 mg ONCE ONCE PO Last administered on 04/30/17 16: 44; Start 04/30/17 at 13:00; Stop 04/30/17 at 13:01; Status DC Diphenhydramine HCl (Benadryl) 50 mg ONCE ONCE PO Last administered on 16:43; Start 04/30/17 at 13:00; Stop 04/30/17 at 13:01; Status DC Rituximab 716.25 mg/Sodium Chloride 571.625 ml @ 0 mls/hr ONCE ONCE IV Last administered on 05/01/17 13:15; Start 04/30/17 at 14:00; Stop 04/30/17 at 14:01 ; Status DC Prednisone (Deltasone) 115 mg Q12H PO ; Start 04/30/17 at 13:00; Stop 05/01/17 at 11:21; Status DC Dexamethasone Sodium Phosphate 20 mg/Granisetron HCl 1 mg/Sodium Chloride 56 ml @ 224 mls/hr Q24H IV ; Start 04/30/17 at 15:00; Stop 05/01/17 at 11:26; Status DC Potassium Chloride 100 ml @ 50 mls/hr BOLUS ONCE IV Last administered on 04/30 10:20; Start 04/30/17 at 10:00; Stop 04/30/17 at 11:59; Status DC Etoposide 95.5 mg/ Doxorubicin HCl 19.1 mg/ Vincristine Sulfate 0.764 mg/ Sodium Chloride 515.089 ml @ 21.462 mls/hr Q24H IV ; Start 04/30/17 at 15:00; Stop 05/18/17 at 13:46; Status DC Cyclophosphamide 1432.5 mg/Sodium Chloride 500 ml @ 500 mls/hr ONCE ONCE IV ; Start 05/04/17 at 14:00; Stop 05/04/17 at 14:59; Status DC Ondansetron HCl (Zofran Inj) 4 mg Q6HR PRN IV PUSH NAUSEA OR VOMITING Last administered on 05/07/17 10:06; Start 04/30/17 at 11:30 Promethazine HCl (Phenergan Inj) 25 mg Q6H PRN IM NAUSEA OR VOMITING Last administered on 05/01/17 13:27; Start 04/30/17 at 11:30 Acetaminophen/ Hydrocodone Bitart ([place] 5-325 Mg) 1 tab Q6H PRN PO PAIN SCALE 1 TO 10 Last administered on 06/12/17 23:53; Start 04/30/17 at 11:30 Albuterol/ Ipratropium (Duoneb Neb) 1 ampule ONCE ONCE NEB Last administered on 04/30/17 20:16; Start 04/30/17 at 19:45; Stop 04/30/17 at 20:11; Status DC Albuterol/ Ipratropium (Duoneb Neb) 1 ampule Q2HR NEB PRN NEB sob, wheeze; Start 04/30/17 at 20:45; Stop 05/02/17 at 10:14; Status DC Morphine Sulfate (Morphine Inj) 2 mg ONCE ONCE IV PUSH Last administered on 23:36; Start 04/30/17 at 23:30; Stop 04/30/17 at 23:31; Status DC Furosemide (Lasix Inj) 10 mg ONCE ONCE IV PUSH Last administered on 05/01/17 01:01; Start 05/01/17 at 00:00; Stop 05/01/17 at 00:01; Status DC Furosemide (Lasix Inj) 20 mg ONCE ONCE IV PUSH Last administered on 05/01/17 09:09; Start 05/01/17 at 07:45; Stop 05/01/17 at 07:52; Status DC Acetaminophen (Tylenol) 650 mg NOW ONCE PO Last administered on 05/01/17 10: 51; Start 05/01/17 at 10:45; Stop 05/01/17 at 10:46; Status DC Diphenhydramine HCl (Benadryl) 50 mg NOW ONCE PO Last administered on 10:51; Start 05/01/17 at 10:45; Stop 05/01/17 at 10:46; Status DC Rituximab 716.25 mg/Sodium Chloride 571.625 ml @ 0 mls/hr ONCE ONCE IV ; Start 05/01/17 at 12:00; Stop 05/01/17 at 12:01; Status DC Acetaminophen (Tylenol) 650 mg ONCE ONCE PO ; Start 05/01/17 at 11:30; Stop at 11:31; Status DC Diphenhydramine HCl (Benadryl) 50 mg ONCE ONCE PO ; Start 05/01/17 at 11:30; Stop 05/01/17 at 11:31; Status DC Prednisone (Deltasone) 115 mg Q12HR PO Last administered on 05/02/17 20:08; Start 05/01/17 at 11:00; Stop 05/05/17 at 21:01; Status DC Dexamethasone Sodium Phosphate 20 mg/Granisetron HCl 1 mg/Sodium Chloride 56 ml @ 224 mls/hr Q24H IV ; Start 05/01/17 at 11:30; Stop 05/06/17 at 11:44; Status DC Metoclopramide HCl (Reglan Inj) 10 mg Q8HR IV PUSH Last administered on 04:59; Start 05/01/17 at 15:30; Stop 05/09/17 at 19:03; Status DC Pantoprazole Sodium (Protonix) 40 mg DAILY PO Last administered on 05/06/17 08 :17; Start 05/01/17 at 16:00; Stop 05/07/17 at 11:49; Status DC Furosemide (Lasix Inj) 20 mg ONCE ONCE IV PUSH Last administered on 05/01/17 16:14; Start 05/01/17 at 15:30; Stop 05/01/17 at 15:31; Status DC Albuterol/ Ipratropium (Duoneb Neb) 1 ampule BID NEB INH Last administered on 05/02/17 07:47; Start 05/01/17 at 20:00; Stop 05/02/17 at 10:18; Status DC Furosemide (Lasix Inj) 20 mg STAT ONCE IV PUSH Last administered on 05/02/17 08:40; Start 05/02/17 at 08:30; Stop 05/02/17 at 08:37; Status DC Etomidate (Amidate Inj) 20 mg STK-MED ONCE .ROUTE Last administered on 12:48; Start 05/02/17 at 09:23; Stop 05/02/17 at 09:24; Status DC Dextrose (D50w (Vial) Inj) 25 ml UNSCH PRN IV PUSH HYPOGLYCEMIA-SEE COMMENTS; Start 05/02/17 at 10:00; Stop 05/16/17 at 08:09; Status DC Insulin Human Regular (NovoLIN R SUPPLEMENTAL SCALE) 1 Q6HR SQ Last administered on 05/04/17t 18:00; Start 05/02/17 at 12:00; Stop 05/16/17 at 08:09 ; Status DC Chlorhexidine Gluconate (Peridex 0.12% Liq) 15 ml BID@08,20 MT Last administered on 06/02/17t 09:27; Start 05/02/17 at 20:00; Stop 06/05/17 at 10:42 ; Status DC Magnesium Oxide (Mag-Ox) 800 mg UNSCH PRN PO For Magnesium 1.2 - 1.6 mg/dL; Start 05/02/17 at 10:00; Stop 05/03/17 at 13:51; Status DC Magnesium Sulfate 4 gm/Sodium Chloride 100 ml @ 50 mls/hr UNSCH PRN IV For Magnesium 0.9 - 1.1 mg/dL; Start 05/02/17 at 10:00; Stop 05/03/17 at 13:51; Status DC Magnesium Sulfate 2 gm/Sodium Chloride 100 ml @ 50 mls/hr UNSCH PRN IV For Magnesium 1.2 - 1.6 mg/dL; Start 05/02/17 at 10:00; Stop 05/03/17 at 13:51; Status DC Potassium Chloride 100 ml @ 50 mls/hr Q2H PRN IV For Potassium 2.8 - 3.2 mEq/L ; Start 05/02/17 at 10:00; Stop 05/03/17 at 13:51; Status DC Potassium Chloride 100 ml @ 50 mls/hr Q2H PRN IV For Potassium 3.3 - 3.5 mEq/L ; Start 05/02/17 at 10:00; Stop 05/03/17 at 13:51; Status DC Potassium Chloride 100 ml @ 50 mls/hr Q2H PRN IV For Potassium 2.8 - 3.2 mEq/L ; Start 05/02/17 at 10:00; Stop 05/03/17 at 13:51; Status DC Potassium Chloride 100 ml @ 25 mls/hr UNSCH PRN IV For Potassium 3.3 - 3.5 mEq /L; Start 05/02/17 at 10:00; Stop 05/03/17 at 13:51; Status DC Potassium Phosphate (K-Phos) 2,000 mg Q4H PRN PO For Phosphorus < 2.5 mg/dL; Start 05/02/17 at 10:00; Stop 05/03/17 at 13:51; Status DC Potassium Phosphate (K-Phos) 2,000 mg UNSCH PRN PO/TUBE SEE LABEL COMMENTS; Start 05/02/17 at 10:00; Stop 05/03/17 at 13:51; Status DC Potassium Phosphate 30 mmol/ Sodium Chloride 260 ml @ 42 mls/hr UNSCH PRN IV SEE LABEL COMMENTS; Start 05/02/17 at 10:00; Stop 05/03/17 at 13:52; Status DC Sodium Phosphate 30 mmol/Sodium Chloride 250 ml @ 42 mls/hr UNSCH PRN IV For Phosphorus < 2.5 mg/dL; Start 05/02/17 at 10:00; Stop 05/03/17 at 13:52; Status DC Albuterol/ Ipratropium (Duoneb Neb) 1 ampule Q6HR NEB INH Last administered on 05/06/17 03:23; Start 05/02/17 at 10:00; Stop 05/06/17 at 10:00; Status DC Albuterol/ Ipratropium (Duoneb Neb) 1 ampule Q2HR NEB PRN INH WHEEZING Last administered on 05/08/17 08:08; Start 05/02/17 at 10:00 Fentanyl Citrate 250 ml @ 0 mls/hr TITRATE IV Last administered on 05/10/17 05 :36; Start 05/02/17 at 10:00; Stop 06/03/17 at 12:04; Status DC Propofol 100 ml @ 0 mls/hr TITRATE IV Last administered on 05/10/17 06:54; Start 05/02/17 at 10:00; Stop 06/03/17 at 12:04; Status DC Iohexol (Omnipaque 350 Inj) 75 ml STK-MED ONCE IV Last administered on 11:31; Start 05/02/17 at 11:31; Stop 05/02/17 at 11:32; Status DC Cefepime HCl 2000 mg/Sodium Chloride 100 ml @ 200 mls/hr Q12H IV Last administered on 05/05/17 02:43; Start 05/02/17 at 15:00; Stop 05/05/17 at 11:53 ; Status DC Vancomycin HCl 1000 mg/Sodium Chloride 250 ml @ 250 mls/hr ONCE ONCE IV Last administered on 05/02/17 16:14; Start 05/02/17 at 15:00; Stop 05/02/17 at 15:59 ; Status DC Heparin Sodium (Porcine) (Heparin Inj) 5,000 units ONCE ONCE IV Last administered on 05/02/17 15:35; Start 05/02/17 at 16:00; Stop 05/02/17 at 16:01 ; Status DC Miscellaneous Information Patient in critical care unit? Ass... [id number] Last administered on 05/02/17 17:30; Start 05/02/17 at 17:15; Stop 06/05/17 at 10:42; Status DC Chlorhexidine Gluconate (Chlorhexidine 2% Cloth) 3 pack DAILY@04 TOPICAL Last administered on 05/07/17 03:45; Start 05/03/17 at 04:00; Stop 05/07/17 at 04:01 ; Status DC Chlorhexidine Gluconate (Chlorhexidine 2% Cloth) 3 pack UNSCH PRN TOPICAL HYGIENIC CARE; Start 05/02/17 at 17:15; Stop 05/07/17 at 17:08; Status DC Alteplase, Recombinant 50 mg/ Syringe / Bag 49.9999 ml @ 50 mls/hr ONCE ONCE IV Last administered on 05/02/17 19:58; Start 05/02/17 at 19:15; Stop at 20:14; Status DC Sodium Chloride (NS Inj) 30 ml ONCE ONCE IVF Last administered on 05/02/17 19 :15; Start 05/02/17 at 19:15; Stop 05/02/17 at 19:28; Status DC Miscellaneous Medication ([facility] Information) Thrombolysis plan for submass... ONCE ONCE OTHER Last administered on 05/02/17 19:15; Start at 19:15; Stop 05/02/17 at 19:28; Status DC Heparin Sodium/ Dextrose 250 ml @ 0 mls/hr TITRATE IV Last administered on 05/26 06:57; Start 05/03/17 at 02:00; Stop 05/27/17 at 07:44; Status DC Epinephrine HCl 2 mg/Dextrose 250 ml @ 30 mls/hr TITRATE IV Last administered on 05/04/17 09:43; Start 05/03/17 at 10:15; Stop 05/07/17 at 16:44; Status DC Calcium Acetate (Phoslo) 2,668 mg TID PO Last administered on 05/27/17 12:23; Start 05/03/17 at 09:00; Stop 05/27/17 at 12:34; Status DC Epoprostenol Sodium 87.5 ml/ Sodium Chloride 100 ml @ 8 mls/hr Q8H NEB Last administered on 05/04/17 00:17; Start 05/03/17 at 09:00; Stop 05/04/17 at 14:14 ; Status DC Lidocaine HCl (Xylocaine 1% Inj (50 ml)) 50 ml STK-MED ONCE .ROUTE ; Start 05/03 at 12:21; Stop 05/03/17 at 12:22; Status DC Epoprostenol Sodium 40 ml/ Sodium Chloride 100 ml @ 8 mls/hr Q8H NEB Last administered on 05/06/17 06:04; Start 05/04/17 at 15:00; Stop 05/06/17 at 12:43 ; Status DC Calcium Gluconate 2 gm/Dextrose 120 ml @ 120 mls/hr ONCE ONCE IV Last administered on 05/04/17 20:00; Start 05/04/17 at 20:00; Stop 05/04/17 at 20:59 ; Status DC Cefepime HCl 2000 mg/Sodium Chloride 100 ml @ 200 mls/hr Q24H IV Last administered on 05/08/17 01:36; Start 05/06/17 at 03:00; Stop 05/08/17 at 23:00 ; Status DC Allopurinol (Zyloprim) 200 mg DAILY PO Last administered on 05/27/17 08:09; Start 05/06/17 at 09:00; Stop 05/27/17 at 14:46; Status DC Artificial Tears (Tears Naturale Opth Soln) 1 drop Q8H EACH EYE Last administered on 05/07/17 10:06; Start 05/05/17 at 18:00; Stop 05/07/17 at 12:11 ; Status DC Fentanyl Citrate (fentaNYL INJ) 100 mcg STK-MED ONCE IV ; Start 04/22/17 at 12: 00; Stop 05/06/17 at 12:46; Status DC Propofol (Diprivan 200 Mg/20 ml Inj) 200 mg STK-MED ONCE IV ; Start 04/22/17 at 12:00; Stop 05/06/17 at 12:46; Status DC Phenylephrine HCl (Neosynephrine/ NS 1000 Mcg/10ml Syr) 1,000 mcg STK-MED ONCE IV ; Start 04/22/17 at 12:00; Stop 05/06/17 at 12:47; Status DC Ondansetron HCl (Zofran Inj) 4 mg STK-MED ONCE IV PUSH ; Start 04/22/17 at 12:00 ; Stop 05/06/17 at 12:47; Status DC Pantoprazole Sodium (Protonix Inj) 40 mg DAILY IV PUSH Last administered on 06/14 08:56; Start 05/07/17 at 12:00 Artificial Tears (Lacrilube Opht Oint) 1 applic Q8H EACH EYE Last administered on 06/03/17 19:02; Start 05/07/17 at 18:00 Sodium Chloride 1,000 ml @ 0 mls/hr TITRATE PRN IV WITH DIALYSIS Last administered on 05/22/17 12:08; Start 05/07/17 at 18:00; Stop 06/05/17 at 10:42 ; Status DC Heparin Sodium (Porcine) (Heparin Inj) 8,000 units UNSCH PRN IV FLUSH WITH DIALYSIS; Start 05/07/17 at 18:00; Stop 06/05/17 at 10:42; Status DC Sodium Chloride 1,000 ml @ 200 mls/hr Q5H PRN IV WITH DIALYSIS Last administered on 05/25/17 10:29; Start 05/07/17 at 18:00; Stop 06/10/17 at 10:44 ; Status DC Sodium Chloride 200 ml @ 0 mls/hr UNSCH PRN IV WITH DIALYSIS; Start 05/07/17 at 18:00; Stop 06/05/17 at 10:42; Status DC Mannitol (Mannitol Inj) 12.5 gm UNSCH PRN IV WITH DIALYSIS; Start 05/07/17 at 18:00; Stop 06/05/17 at 10:42; Status DC Albumin Human (Albumin 25% Inj) 25 gm UNSCH PRN IV WITH DIALYSIS; Start at 18:00; Stop 06/05/17 at 10:42; Status DC Sodium Chloride (NS Flush) 5 ml UNSCH PRN IV FLUSH WITH DIALYSIS Last administered on 05/25/17 03:50; Start 05/07/17 at 18:00; Stop 06/05/17 at 10:42 ; Status DC Heparin Sodium (Porcine) (Heparin Inj) Dwell Heparin to f... UNSCH PRN OTHER WITH DIALYSIS Last administered on 05/25/17 10:31; Start 05/07/17 at 18:00; Stop 06/05/17 at 10:42; Status DC Gentamicin Sulfate (Gentamicin (Dialysis) Inj) 10 mg UNSCH PRN OTHER WITH DIALYSIS Last administered on 05/25/17 10:29; Start 05/07/17 at 18:00; Stop at 10:42; Status DC Gelatin (Gelfoam 12 Mm/7 Mm Top) 1 foam UNSCH PRN TOPICAL WITH DIALYSIS; Start 05/07/17 at 18:00; Stop 06/05/17 at 10:42; Status DC Ondansetron HCl (Zofran Inj) 4 mg UNSCH PRN IV NAUSEA OR VOMITING; Start at 18:00; Stop 06/10/17 at 10:44; Status DC Acetaminophen (Tylenol) 650 mg UNSCH X1 PRN PO WITH DIALYSIS Last administered on 05/08/17 10:07; Start 05/07/17 at 18:00; Stop 05/14/17 at 17:59; Status DC Diphenhydramine HCl (Benadryl) 25 mg UNSCH PRN PO WITH DIALYSIS; Start at 18:00; Stop 06/05/17 at 10:42; Status DC Nitroglycerin (Nitrostat Sl) 0.4 mg UNSCH PRN SL WITH DIALYSIS; Start 05/07/17 at 18:00; Stop 06/05/17 at 10:42; Status DC Clonidine (Catapres) 0.1 mg UNSCH PRN PO WITH DIALYSIS; Start 05/07/17 at 18:00 ; Stop 06/05/17 at 10:42; Status DC Polyethylene Glycol (Miralax) 17 gm DAILY PO Last administered on 05/10/17 07: 52; Start 05/08/17 at 09:00; Stop 05/13/17 at 17:16; Status DC Lactulose (Lactulose Liq) 30 ml BID PO Last administered on 05/10/17 07:51; Start 05/08/17 at 09:00; Stop 05/13/17 at 17:16; Status DC Bisacodyl (Dulcolax Supp) 10 mg DAILY PRN RECTAL CONSTIPATION; Start 05/08/17 at 08:15; Stop 05/08/17 at 08:16; Status DC Diatrizoate Meglum/ Diatrizoate Sod ( Gastroview Liq) 18 ml ONCE ONCE PO Last administered on 05/09/17 16:42; Start 05/09/17 at 14:15; Stop 05/09/17 at 14:16; Status DC Heparin Sodium (Porcine) (Heparin Inj) 300 units NOW ONCE IV ; Start 05/09/17 at 18:30; Stop 05/09/17 at 18:31; Status DC Potassium Chloride 100 ml @ 50 mls/hr BOLUS ONCE IV Last administered on 05/10 13:31; Start 05/10/17 at 12:30; Stop 05/10/17 at 14:29; Status DC Sucralfate (Carafate Liq) 1 gm Q8HR PO Last administered on 05/13/17 04:46; Start 05/10/17 at 14:00; Stop 05/13/17 at 13:59; Status DC Potassium Chloride 100 ml @ 50 mls/hr ONCE ONCE IV Last administered on 08:54; Start 05/11/17 at 08:30; Stop 05/11/17 at 10:29; Status DC Metronidazole (Flagyl) 500 mg Q8HR PO Last administered on 05/25/17 05:32; Start 05/11/17 at 14:00; Stop 05/25/17 at 12:07; Status DC Morphine Sulfate (Morphine Inj) 4 mg NOW ONCE IV PUSH Last administered on 05/12 09:58; Start 05/12/17 at 09:45; Stop 05/12/17 at 09:46; Status DC Potassium Chloride 100 ml @ 25 mls/hr ONCE ONCE IV Last administered on 13:51; Start 05/12/17 at 13:45; Stop 05/12/17 at 17:44; Status DC Vancomycin HCl (VANCOMYCIN for oral use only) 500 mg QID PO Last administered on 05/25/17 21:09; Start 05/13/17 at 13:00; Stop 05/25/17 at 23:00; Status DC Dronabinol (Marinol) 5 mg BID@11,16 PO Last administered on 06/13/17 18:24; Start 05/14/17 at 16:00 Heparin Sodium (Porcine) (*HEPARIN INJ Periprocedural ONLY) 10,000 units STK- MED ONCE .ROUTE Last administered on 05/15/17 15:50; Start 05/15/17 at 15:24; Stop 05/15/17 at 15:25; Status DC Sodium Chloride (NS Flush) UNSCH PRN IVF SEE PROTOCOL Last administered on 03:51; Start 05/15/17 at 16:00; Stop 06/05/17 at 10:43; Status DC Heparin Sodium (Porcine) (Heparin Inj) UNSCH PRN IV FLUSH SEE PROTOCOL; Start 05/15/17 at 16:00; Stop 06/05/17 at 10:43; Status DC Iohexol (Omnipaque 350 Inj) 10 ml STK-MED ONCE IV Last administered on 15:50; Start 05/15/17 at 20:42; Stop 05/15/17 at 20:43; Status DC Potassium Chloride (KCl) 30 meq ONCE ONCE PO Last administered on 05/16/17 11: 06; Start 05/16/17 at 09:00; Stop 05/16/17 at 09:01; Status DC Dexamethasone (Decadron) 40 mg ONCE ONCE PO ; Start 05/16/17 at 13:00; Stop 05/16 at 13:01; Status DC Potassium Chloride (KCl) 30 meq ONCE ONCE PO Last administered on 05/17/17 08: 57; Start 05/17/17 at 07:45; Stop 05/17/17 at 07:46; Status DC Potassium Chloride (KCl) 20 meq ONCE ONCE PO Last administered on 05/17/17 15: 00; Start 05/17/17 at 13:00; Stop 05/17/17 at 13:01; Status DC Granisetron HCl (Kytril Inj) 1 mg ONCE ONCE IV PUSH Last administered on 17:02; Start 05/18/17 at 16:30; Stop 05/18/17 at 16:31; Status DC Dexamethasone Sodium Phosphate 20 mg/Sodium Chloride 55 ml @ 220 mls/hr ONCE ONCE IV Last administered on 05/18/17 17:02; Start 05/18/17 at 16:30; Stop at 16:44; Status DC Doxorubicin HCl (Adriamycin Inj) 91 mg ONCE ONCE IV PUSH Last administered on 05/18/17 17:35; Start 05/18/17 at 17:00; Stop 05/18/17 at 17:01; Status DC Vincristine Sulfate 2 mg/ Sodium Chloride 52 ml @ 312 mls/hr ONCE ONCE IV Last administered on 05/18/17 17:50; Start 05/18/17 at 17:30; Stop 05/18/17 at 17: 39; Status DC Cyclophosphamide 1019 mg/Sodium Chloride 500 ml @ 500 mls/hr ONCE ONCE IV Last administered on 05/18/17 18:08; Start 05/18/17 at 18:00; Stop 05/18/17 at 18: 59; Status DC Prednisone (Deltasone) 91 mg HS PO Last administered on 05/22/17 19:54; Start 05/18/17 at 21:00; Stop 05/22/17 at 21:01; Status DC Sodium Chloride 250 ml @ 0 mls/hr ONCE ONCE IV Last administered on 05/18/17 17:00; Start 05/18/17 at 17:00; Stop 05/18/17 at 17:01; Status DC Warfarin Sodium (Coumadin) 1 mg DAILY@16 PO Last administered on 05/20/17 17:37 ; Start 05/19/17 at 16:00; Stop 05/21/17 at 12:42; Status DC Patient Medication Teaching (Coumadin Booklet) 1 ONCE ONCE OTHER Last administered on 05/19/17 16:00; Start 05/19/17 at 16:00; Stop 05/19/17 at 16:01; Status DC Warfarin Sodium (Coumadin) 1 mg NOW ONCE PO Last administered on 05/19/17 19: 40; Start 05/19/17 at 19:45; Stop 05/19/17 at 19:46; Status DC Sodium Chloride 250 ml @ 15 mls/hr ONCE ONCE IV Last administered on 18:36; Start 05/20/17 at 10:00; Stop 05/21/17 at 02:39; Status DC Albuterol Sulfate (Ventolin Hfa Inh) 2 puff Q6HR INH Last administered on 23:45; Start 05/21/17 at 00:00; Stop 05/29/17 at 07:34; Status DC Warfarin Sodium (Coumadin) 2 mg DAILY@16 PO Last administered on 05/21/17 17: 27; Start 05/21/17 at 16:00; Stop 05/22/17 at 14:13; Status DC Epoetin Oleksandr (Epogen Inj) 10,000 units UNSCH PRN IV WITH DIALYSIS Last administered on 05/25/17 10:30; Start 05/21/17 at 18:30; Stop 06/05/17 at 10:43 ; Status DC Warfarin Sodium (Coumadin) 3 mg DAILY@16 PO Last administered on 05/22/17 18: 35; Start 05/22/17 at 16:00; Stop 05/23/17 at 12:26; Status DC Warfarin Sodium (Coumadin) 4 mg DAILY@16 PO Last administered on 06/02/17 17: 39; Start 05/23/17 at 16:00; Stop 06/03/17 at 11:39; Status DC Sodium Chloride (NS Flush) 5 ml UNSCH PRN IV FLUSH SEE PROTOCOL TABLE Last administered on 05/25/17 03:51; Start 05/24/17 at 06:45; Stop 06/05/17 at 10:43 ; Status DC Heparin Sodium (Porcine) (Heparin Central Flush) 250 units UNSCH PRN IV FLUSH SEE PROTOCOL TABLE Last administered on 06/02/17 05:14; Start 05/24/17 at 06:45 ; Stop 06/06/17 at 19:57; Status DC Heparin Sodium (Porcine) (Heparin Central Flush) 500 units UNSCH IV FLUSH ; Start 05/24/17 at 06:45; Stop 06/06/17 at 19:57; Status DC Sodium Chloride 250 ml @ 15 mls/hr ONCE ONCE IV ; Start 05/25/17 at 10:00; Stop 05/26/17 at 02:39; Status DC Potassium Chloride (KCl) 20 meq ONCE ONCE PO Last administered on 05/25/17 12 :08; Start 05/25/17 at 11:00; Stop 05/25/17 at 11:10; Status DC Potassium Chloride (KCl) 40 meq ONCE ONCE PO Last administered on 05/26/17 09 :06; Start 05/26/17 at 08:30; Stop 05/26/17 at 08:31; Status DC Filgrastim 300 mcg/Dextrose 25 ml @ 100 mls/hr DAILY@14 IV Last administered on 05/31/17 12:50; Start 05/26/17 at 15:00; Stop 05/31/17 at 14:20; Status DC Potassium Chloride (KCl) 40 meq ONCE ONCE PO Last administered on 05/27/17 08 :24; Start 05/27/17 at 08:15; Stop 05/27/17 at 08:16; Status DC Potassium Chloride (KCl) 20 meq ONCE ONCE PO Last administered on 05/27/17 12 :23; Start 05/27/17 at 13:00; Stop 05/27/17 at 13:01; Status DC Magnesium Sulfate/ Dextrose 100 ml @ 100 mls/hr ONCE ONCE IV Last administered on 05/27/17 14:31; Start 05/27/17 at 13:30; Stop 05/27/17 at 14:29 ; Status DC Allopurinol (Zyloprim) 300 mg DAILY PO Last administered on 06/14/17 08:56; Start 05/28/17 at 09:00 Magnesium Oxide (Mag-Ox) 400 mg Q12HR PO Last administered on 06/14/17 08:56; Start 05/28/17 at 09:00 Potassium Chloride (KCl) 20 meq ONCE ONCE PO Last administered on 05/28/17 09 :54; Start 05/28/17 at 09:00; Stop 05/28/17 at 09:01; Status DC Albuterol Sulfate (Ventolin Hfa Inh) 2 puff Q6HR PRN INH SHORTNESS OF BREATH; Start 05/29/17 at 07:30 Potassium Chloride (KCl) 30 meq ONCE ONCE PO Last administered on 05/29/17 15 :50; Start 05/29/17 at 14:00; Stop 05/29/17 at 14:15; Status DC Potassium Chloride (KCl) 30 meq ONCE ONCE PO Last administered on 05/29/17 17 :24; Start 05/29/17 at 18:00; Stop 05/29/17 at 18:01; Status DC Potassium Chloride (KCl) 40 meq STK-MED ONCE PO Last administered on 05/31/17 12:13; Start 05/31/17 at 12:13; Stop 05/31/17 at 12:20; Status DC Magnesium Sulfate/ Dextrose 200 ml @ As Directed STK-MED ONCE .ROUTE Last administered on 05/31/17 12:14; Start 05/31/17 at 12:14; Stop 05/31/17 at 12:21 ; Status DC Multi-Ingredient Ointment (Eucerin Cream) 1 applic Q6H PRN TOPICAL DRY SKIN Last administered on 05/31/17 17:46; Start 05/31/17 at 14:00 Potassium Phos/ Sodium Phos (K-Phos Neutral) 250 mg Q8HR PO Last administered on 06/12/17 05:01; Start 06/01/17 at 08:15; Stop 06/12/17 at 15:09; Status DC Pharmacy Profile Note 0 ml @ 0 mls/hr UNSCH OTHER ; Start 06/01/17 at 09:30 Warfarin Sodium (Coumadin) 1 mg ONCE ONCE PO Last administered on 06/02/17 17 :39; Start 06/02/17 at 16:00; Stop 06/02/17 at 16:01; Status DC Warfarin Sodium (Coumadin) 3 mg ONCE ONCE PO ; Start 06/03/17 at 16:00; Stop at 16:01; Status Cancel Heparin Sodium/ Dextrose 250 ml @ 11.448 mls/ hr TITRATE PRN IV Coagulation management; Start 06/03/17 at 09:15; Stop 06/03/17 at 12:04; Status DC Warfarin Sodium (Coumadin) 5 mg DAILY@1600 PO Last administered on 06/04/17 17 :36; Start 06/03/17 at 16:00; Stop 06/05/17 at 10:43; Status DC Enoxaparin Sodium (Lovenox Inj) 60 mg Q12H SQ Last administered on 06/09/17 00 :25; Start 06/03/17 at 13:00; Stop 06/09/17 at 08:27; Status DC Warfarin Sodium (Coumadin) 2.5 mg ONCE ONCE PO ; Start 06/05/17 at 16:00; Stop 06/05/17 at 16:01; Status Cancel Warfarin Sodium (Coumadin) 6 mg DAILY@1600 PO Last administered on 06/07/17 15 :00; Start 06/06/17 at 16:00; Stop 06/10/17 at 10:44; Status DC Warfarin Sodium (Coumadin) 7.5 mg ONCE@1600 ONCE PO Last administered on 15:44; Start 06/05/17 at 16:00; Stop 06/05/17 at 16:01; Status DC Sodium Chloride (NS Flush) 5 ml UNSCH PRN IV FLUSH SEE PROTOCOL TABLE; Start at 20:00 Heparin Sodium (Porcine) (Heparin Central Flush) 250 units UNSCH PRN IV FLUSH SEE PROTOCOL TABLE; Start 06/06/17 at 20:00 Heparin Sodium (Porcine) (Heparin Central Flush) 500 units UNSCH IV FLUSH Last administered on 06/06/17 21:17; Start 06/06/17 at 20:00 Rituximab 686.3 mg/Sodium Chloride 568.63 ml @ 0 mls/hr ONCE ONCE IV Last administered on 06/08/17 13:23; Start 06/08/17 at 13:00; Stop 06/08/17 at 13:01 ; Status DC Acetaminophen (Tylenol) 650 mg ONCE ONCE PO Last administered on 06/08/17 12: 43; Start 06/08/17 at 12:30; Stop 06/08/17 at 12:31; Status DC Diphenhydramine HCl (Benadryl) 50 mg ONCE ONCE PO Last administered on 12:43; Start 06/08/17 at 12:30; Stop 06/08/17 at 12:31; Status DC Sodium Chloride 1,000 ml @ 100 mls/hr Q10H IV Last administered on 06/08/17 12:43; Start 06/08/17 at 13:00; Stop 06/08/17 at 23:59; Status DC Granisetron HCl 1 mg/Dexamethasone Sodium Phosphate 20 mg/Sodium Chloride 56 ml @ 224 mls/hr DAILY@1430 IV ; Start 06/09/17 at 14:30; Stop 06/09/17 at 14:30; Status DC Etoposide 91.5 mg/ Doxorubicin HCl 18.3 mg/ Vincristine Sulfate 0.7 mg/ Sodium Chloride 514.425 ml @ 21.024 mls/hr Q24H IV ; Start 06/09/17 at 15:00; Stop at 15:00; Status DC Prednisone (Deltasone) 100 mg Q12H PO Last administered on 06/13/17 22:24; Start 06/09/17 at 11:00; Stop 06/13/17 at 23:01; Status DC Prednisone (Deltasone) 10 mg Q12H PO Last administered on 06/13/17 22:24; Start 06/09/17 at 11:00; Stop 06/13/17 at 23:01; Status DC Cyclophosphamide 1372.5 mg/Sodium Chloride 500 ml @ 500 mls/hr ONCE ONCE IV Last administered on 06/14/17 01:34; Start 06/13/17 at 15:00; Stop 06/13/17 at 15: 59; Status DC Etoposide 91.5 mg/ Doxorubicin HCl 18.3 mg/ Vincristine Sulfate 0.7 mg/ Sodium Chloride 514.425 ml @ 21.024 mls/hr Q24H IV Last administered on 06/13/17 00: 51; Start 06/09/17 at 13:00; Stop 06/13/17 at 12:59; Status DC Sodium Chloride 1,000 ml @ 50 mls/hr Q20H IV Last administered on 06/14/17 01: 43; Start 06/09/17 at 09:00 Granisetron HCl 1 mg/Dexamethasone Sodium Phosphate 20 mg/Sodium Chloride 56 ml @ 224 mls/hr DAILY@1230 IV Last administered on 06/13/17 00:09; Start at 12:30; Stop 06/12/17 at 12:44; Status DC Magnesium Sulfate/ Dextrose 100 ml @ 100 mls/hr Q1H IV Last administered on 11:25; Start 06/09/17 at 11:00; Stop 06/09/17 at 12:59; Status DC Potassium Chloride (KCl) 40 meq ONCE ONCE PO Last administered on 06/09/17 10 :27; Start 06/09/17 at 10:15; Stop 06/09/17 at 10:16; Status DC Warfarin Sodium (Coumadin) 5 mg DAILY@1600 PO ; Start 06/10/17 at 16:00; Stop at 16:00; Status DC Warfarin Sodium (Coumadin) 5 mg DAILY@1600 PO Last administered on 06/13/17 18: 24; Start 06/10/17 at 16:00; Status Future hold Magnesium Oxide (Mag-Ox) 400 mg ONCE ONCE PO Last administered on 06/11/17 12 :57; Start 06/11/17 at 10:30; Stop 06/11/17 at 10:31; Status DC Potassium Chloride (KCl) 40 meq ONCE ONCE PO Last administered on 06/11/17 12 :57; Start 06/11/17 at 10:30; Stop 06/11/17 at 10:31; Status DC Filgrastim 300 mcg/Dextrose 25 ml @ 100 mls/hr DAILY@14 IV ; Start 06/15/17 at 09:00 Magnesium Sulfate 4 gm/Dextrose 100 ml @ 25 mls/hr ONCE ONCE IV Last administered on 06/12/17 18:06; Start 06/12/17 at 17:00; Stop 06/12/17 at 20:59; Status DC Potassium Chloride (KCl) 40 meq ONCE ONCE PO Last administered on 06/12/17 18: 05; Start 06/12/17 at 16:00; Stop 06/12/17 at 16:01; Status DC Urinary Catheter: No Vascular Central Line Catheter: Yes A/P Problem List: (1) Acute pancreatitis ICD Code: K85.90 - Acute pancreatitis without necrosis or infection, unspecified Status: Resolved (2) Transaminitis ICD Code: R74.0 - Nonspecific elevation of levels of transaminase and lactic acid dehydrogenase [LDH] Status: Acute (3) ALDO (acute kidney injury) ICD Code: N17.9 - Acute kidney failure, unspecified Status: Resolved (4) Pleural effusion ICD Code: J90 - Pleural effusion, not elsewhere classified Status: Acute Assessment and Plan Acute Hypoxic Respiratory Failure Acute Submassive Pulmonary Embolism Right Heart Dysfunction Global severe left ventricular systolic dysfunction Cardiogenic Shock-resolved - 2d echo 05/02: EF 30-35%, RV dysfunction with dilation - Repeat ECHO limited study scheduled on 05/09 - RV function appears to have normalized, question of interatrial shunt for which cardiology consulted, recommendations that once off anticoagulation, would need to be on ASA and require f/u echo periodically for evaluation. Follow. Acute Kidney Injury-resolved. Hypokalemia-replaced. hypomagnesemia- improved. - Likely secondary to cardiogenic shock - HD was discontinued. - s/p vas-cath removal - nephrology has signed off. - BMP reviewed today showing improvement in electrolytes. Hyperphosphatemia-resolved. protein calorie malnutrition- severe ileus-resolved. - Quality Systems Specialist following; recommended alternative form of nutrition - PEG was discussed with the patient which he again declined, he states that his appetite is better now, regular diet with thin liquids. Large Cell B-cell lymphoma Leukopenia Pulmonary Embolism anemia of chronic disease - Hematology/oncology following, Dr. Connelly - Received chemo CHOP regimen. - Started on EPOCH chemotherapy - Continue Coumadin, discontinued Lovenox , monitor INR, 2.1 today 06/13. Follow daily. - Monitor for fevers. C. difficile colitis, resolved: Diarrhea improved. Finished course of Vanco and Flagyl DVT Prophylaxis: Coumadin A.m. labs Problem Qualifiers (1) Acute pancreatitis: Kirk Long DO Jun 14, 2017 09:16
--- NOTE | 2017-06-14 10:11 | PD.ONC.PN ---
Subjective Subjective Remarks Afebrile overnight. patient resting in bed in nad. Finished chemotherapy last night. No nausea or vomiting. Objective Data Date Time Temp Pulse Resp B/P (MAP) Pulse Ox O2 Delivery O2 Flow Rate FiO2 06/14/17 08:51 96.2 70 20 142/93 (109) 95 06/14/17 04:00 96.2 75 17 139/92 (108) 99 06/14/17 00:00 97.1 68 17 119/75 (90) 98 06/13/17 21:30 79 06/13/17 20:00 96.4 76 17 124/87 (99) 98 06/13/17 16:33 96.3 53 21 136/97 (110) 98 06/13/17 12:27 96.4 54 20 141/79 (99) 95 06/13/17 12:00 75 06/14/17 06/14/17 06/14/17 07:00 15:00 23:00 Intake Total 1131 ml Output Total 1000 ml Balance 131 ml Result Diagram: 06/14/1752106/14/1722 Laboratory Results Laboratory Tests Test 06/14/17 05:22 White Blood Count 4.8 TH/MM3 Red Blood Count 3.39 MIL/MM3 Hemoglobin 10.2 GM/DL Hematocrit 30.3 % Mean Corpuscular Volume 89.5 FL Mean Corpuscular Hemoglobin 30.1 PG Mean Corpuscular Hemoglobin Concent 33.6 % Red Cell Distribution Width 16.4 % Platelet Count 363 TH/MM3 Mean Platelet Volume 7.1 FL Neutrophils (%) (Auto) 95.5 % Lymphocytes (%) (Auto) 3.4 % Monocytes (%) (Auto) 1.1 % Eosinophils (%) (Auto) 0.0 % Basophils (%) (Auto) 0.0 % Neutrophils # (Auto) 4.6 TH/MM3 Lymphocytes # (Auto) 0.2 TH/MM3 Monocytes # (Auto) 0.1 TH/MM3 Eosinophils # (Auto) 0.0 TH/MM3 Basophils # (Auto) 0.0 TH/MM3 CBC Comment DIFF FINAL Differential Comment Prothrombin Time 30.1 SEC Prothromb Time International Ratio 2.6 RATIO Blood Urea Nitrogen 13 MG/DL Creatinine 0.53 MG/DL Random Glucose 115 MG/DL Total Protein 5.4 GM/DL Albumin 2.0 GM/DL Calcium Level 7.1 MG/DL Magnesium Level 1.5 MG/DL Alkaline Phosphatase 76 U/L Aspartate Amino Transf (AST/SGOT) 15 U/L Alanine Aminotransferase (ALT/SGPT) 19 U/L Total Bilirubin 0.3 MG/DL Sodium Level 138 MEQ/L Potassium Level 3.2 MEQ/L Chloride Level 103 MEQ/L Carbon Dioxide Level 28.3 MEQ/L Anion Gap 7 MEQ/L Estimat Glomerular Filtration Rate 200 ML/MIN Protein Corrected Calcium 8.0 MG/DL Administered Medications Medications (Trade) Dose Ordered Sig/Shyla Route PRN Reason Start Time Stop Time Status Last Admin Dose Admin Sodium Chloride (NS Flush) 2 ml UNSCH PRN IV FLUSH FLUSH AFTER USING IV ACCESS 04/18/17 17:30 06/06/17 09:18 Nifedipine (Procardia Xl) 90 mg DAILY PO 04/28/17 09:00 06/14/17 08:56 Clonidine (Catapres) 0.1 mg Q6H PRN PO SBP>160, DBP>90 04/27/17 15:00 04/29/17 08:07 Ondansetron HCl (Zofran Inj) 4 mg Q6HR PRN IV PUSH NAUSEA OR VOMITING 04/30/17 11:30 05/07/17 10:06 Promethazine HCl (Phenergan Inj) 25 mg Q6H PRN IM NAUSEA OR VOMITING 04/30/17 11:30 05/01/17 13:27 Acetaminophen/ Hydrocodone Bitart (Brilliant 5-325 Mg) 1 tab Q6H PRN PO PAIN SCALE 1 TO 10 04/30/17 11:30 06/12/17 23:53 Albuterol/ Ipratropium (Duoneb Neb) 1 ampule Q2HR NEB PRN INH WHEEZING 05/02/17 10:00 05/08/17 08:08 Pantoprazole Sodium (Protonix Inj) 40 mg DAILY IV PUSH 05/07/17 12:00 06/14/17 08:56 Artificial Tears (Lacrilube Opht Oint) 1 applic Q8H EACH EYE 05/07/17 18:00 06/03/17 19:02 Dronabinol (Marinol) 5 mg BID@11,16 PO 05/14/17 16:00 06/13/17 18:24 Allopurinol (Zyloprim) 300 mg DAILY PO 05/28/17 09:00 06/14/17 08:56 Magnesium Oxide (Mag-Ox) 400 mg Q12HR PO 05/28/17 09:00 06/14/17 08:56 Multi-Ingredient Ointment (Eucerin Cream) 1 applic Q6H PRN TOPICAL DRY SKIN 05/31/17 14:00 05/31/17 17:46 Heparin Sodium (Porcine) (Heparin Central Flush) 500 units UNSCH IV FLUSH 06/06/17 20:00 06/06/17 21:17 Sodium Chloride 1,000 ml @ 50 mls/hr Q20H IV 06/09/17 09:00 06/14/17 01:43 Objective Remarks GENERAL: Middle aged male upright in bed in nad. SKIN: Warm and dry. HEAD: Normocephalic. EYES: No injection or drainage. NECK: Supple, trachea midline. CARDIOVASCULAR: Regular rate and rhythm RESPIRATORY: Breath sounds equal bilaterally. No accessory muscle use. GASTROINTESTINAL: Abdomen soft, non-tender, nondistended. EXTREMITIES: No cyanosis NEUROLOGICAL: awake and alert, normal speech. moving all extremities. 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 --Received Rituxan x1. --05/18-->CHOP chemotherapy -- R-EPOCH chemotherapy completed on 06/14 (2) Pulmonary emboli ICD Codes: I26.99 - Other pulmonary embolism without acute cor pulmonale Status: Resolved Plan: --On coumadin --CTA showed large PE --s/p tpa therapy on 7.2 --INR daily Assessment 47y/o male admitted with pancreatitis, found to have NHL. Have some response to R_CHOP but the masses seems more prominent again worrisome for progression of disease. Plan 1. start Neupogen tomorrow 2. monitor CBC, CMP 3. continue coumadin. Attending Statement The exam, history, and the medical decision-making described in the above note were completed with the assistance of the mid-level provider. I reviewed and agree with the findings presented. I attest that I had a [id number] encounter with the patient on the same day, and personally performed and documented my assessment and findings in the medical record. Pt seen and examined, VS, labs, medications reviewed. He tolerated chemotherapy without difficulty. Denies acute complaints, is eating well and is keeping himself well hydrated. He is sitting up in bed watching football intently. Continue ongoing care. Problem Qualifiers (1) Non-Hodgkin lymphoma: Brenda Platt Jun 14, 2017 10:11 Johnny Stinson MD Jun 14, 2017 21:01
[2017-06-14] MEDS: DRONABINOL 5 MG CAP PO SCH ×2 (11:27→16:42)
[2017-06-14] MEDS ORDERED: POTASSIUM CHLORIDE 20 MEQ CONTROLLED RELEASE TAB PO ONE (13:00)
[2017-06-14] MEDS: WARFARIN SOD 4 MG TAB PO SCH (16:42)
[2017-06-15] VITALS (11 sets, daily range): BP systolic 103–151; BP diastolic 67–105; PULSE 73–89; RESP 18–20; TEMP 96.4–98.3; O2SAT 97–100
[2017-06-15] MEDS: ARTIFICIAL TEARS OPTH OINT 3.5 APPLIC/3.5 GM TUBO EACH EYE SCH ×3 (02:12→18:00)
[2017-06-15] MEDS: cloNIDine HCL 0.1 MG TAB PO PRN (04:24)
[2017-06-15 05:26] LABS: BASOPHIL % 0.1 % (0.0-2.0); HEMO FLAGS DIFF FINAL; LYMPH % 7.5 % (9.0-44.0); LYMPHOCYTE # 0.7 TH/MM3 (1.0-4.8); MEAN CELL VOLUME 89.2 FL (80.0-100.0); MEAN CORPUSCULAR HEMOGLOBIN 30.8 PG (27.0-34.0); MEAN CORPUSCULAR HGB CONC 34.5 % (32.0-36.0); MONO % 0.4 % (0.0-8.0); PLATELET COUNT 312 TH/MM3 (150-450); RED BLOOD COUNT 3.26 MIL/MM3 (4.50-5.90); RED CELL DISTRIBUTION WIDTH 16.2 % (11.6-17.2); WHITE BLOOD COUNT 8.7 TH/MM3 (4.0-11.0)
[2017-06-15 05:53] LABS: INTERNATIONAL NORMALIZED RATIO 2.5 RATIO; PROTHROMBIN TIME - PATIENT 29.3 SEC (9.8-11.6)
[2017-06-15 06:00] LABS: ALKALINE PHOSPHATASE 72 U/L (45-117); ALT (GPT) 22 U/L (12-78); ANION GAP 9 MEQ/L (5-15); AST (GOT) 13 U/L (15-37); BICARBONATE 27.4 MEQ/L (21.0-32.0); BLOOD UREA NITROGEN 12 MG/DL (7-18); CALCIUM-PROTEIN CORRECTED 7.9 MG/DL (8.5-10.1); CHLORIDE 107 MEQ/L (98-107); FREE T4 1.15 NG/DL (0.76-1.46); GLOMERULAR FILTRATION RATE 196 ML/MIN (>89); MAGNESIUM 1.5 MG/DL (1.5-2.5); SODIUM (NA) 143 MEQ/L (136-145); TOTAL BILIRUBIN ADULT 0.3 MG/DL (0.2-1.0)
[2017-06-15 06:04] LABS: POTASSIUM 2.9 MEQ/L (3.5-5.1)
[2017-06-15] MEDS: ALLOPURINOL 300 MG TAB PO SCH (08:56)
[2017-06-15] MEDS: PANTOPRAZOLE SODIUM 40 MG VIAL IV PUSH SCH (08:56)
[2017-06-15] MEDS: MAGNESIUM OXIDE 400 MG TAB PO SCH ×2 (08:56→21:57)
[2017-06-15] MEDS: NIFEdipine 90 MG SUSTAINED RELEASE TAB PO SCH (08:56)
[2017-06-15] MEDS: FILGRASTIM INJ 300 MCG in DEXTROSE 5% IN WATER INJ 24 ML IV SCH ×4 (09:00→14:49)
[2017-06-15] MEDS: MAGNESIUM SULFATE 1 GM PREMIX 100 ML IV SCH ×2 (10:04→11:01)
--- NOTE | 2017-06-15 10:11 | HHI.PR ---
Subjective Remarks Follow up Non-Hodgkins lymphoma and PE. Patient seen and examined today. Lying in bed comfortably. Denies any new acute complaints overnight. Slept well. Denies any recent fever, chills, cough, shortness of breath, ab pain, n/v/d or dysuria. 06-14 he states, he is eating okay. Abdomen bowel movements. A.m. labs Monitor INRs Physical therapy and occupational therapy Case management for discharge planning 06-15 HYPOKALEMIA- HYPOMAGNESIA WILL REPLACE WORKED WITH PT AND OT DW RN AND PT Objective Vitals Vital Signs Date Time Temp Pulse Resp B/P (MAP) Pulse Ox O2 Delivery O2 Flow Rate FiO2 06/15/17 08:00 96.4 87 20 133/96 (108) 99 06/15/17 04:23 151/99 (116) 06/15/17 04:19 73 06/15/17 04:00 97.9 89 20 149/105 (120) 97 06/15/17 00:19 78 06/15/17 00:00 98.0 74 18 126/76 (93) 97 06/14/17 21:20 98.1 78 18 118/73 (88) 94 06/14/17 20:04 78 06/14/17 17:33 153/65 (94) 06/14/17 16:15 76 06/14/17 16:00 96.8 61 21 135/90 (105) 99 06/14/17 12:18 96.6 66 20 130/86 (101) 99 06/14/17 11:48 77 I/O 06/14/17 06/14/17 06/14/17 06/15/17 06/15/17 06/15/17 07:00 15:00 23:00 07:00 15:00 23:00 Intake Total 1131 ml 480 ml 1330 ml 120 ml Output Total 1000 ml 750 ml 500 ml 740 ml Balance 131 ml -270 ml 830 ml -620 ml Intake Oral 480 ml 980 ml 120 ml IV Total 1131 ml 350 ml Output Urine Total 1000 ml 750 ml 500 ml 740 ml # Voids 1 1 # Bowel Movements 1 0 1 Result Diagram: 06/15/17 0428 06/15/17 0428 Other Results Laboratory Tests Test 06/12/17 13:55 06/13/17 03:55 06/14/17 05:22 06/15/17 04:28 White Blood Count 5.6 TH/MM3 5.2 TH/MM3 4.8 TH/MM3 8.7 TH/MM3 Red Blood Count 3.24 MIL/MM3 3.61 MIL/MM3 3.39 MIL/MM3 3.26 MIL/MM3 Hemoglobin 10.1 GM/DL 10.9 GM/DL 10.2 GM/DL 10.0 GM/DL Hematocrit 29.0 % 32.2 % 30.3 % 29.0 % Mean Corpuscular Volume 89.6 FL 89.0 FL 89.5 FL 89.2 FL Mean Corpuscular Hemoglobin 31.1 PG 30.1 PG 30.1 PG 30.8 PG Mean Corpuscular Hemoglobin Concent 34.7 % 33.8 % 33.6 % 34.5 % Red Cell Distribution Width 16.7 % 16.5 % 16.4 % 16.2 % Platelet Count 327 TH/MM3 371 TH/MM3 363 TH/MM3 312 TH/MM3 Mean Platelet Volume 7.3 FL 7.4 FL 7.1 FL 7.6 FL Neutrophils (%) (Auto) 87.1 % 95.6 % 95.5 % 92.0 % Lymphocytes (%) (Auto) 7.3 % 3.2 % 3.4 % 7.5 % Monocytes (%) (Auto) 5.5 % 1.0 % 1.1 % 0.4 % Eosinophils (%) (Auto) 0.0 % 0.0 % 0.0 % 0.0 % Basophils (%) (Auto) 0.1 % 0.2 % 0.0 % 0.1 % Neutrophils # (Auto) 4.9 TH/MM3 5.0 TH/MM3 4.6 TH/MM3 8.0 TH/MM3 Lymphocytes # (Auto) 0.4 TH/MM3 0.2 TH/MM3 0.2 TH/MM3 0.7 TH/MM3 Monocytes # (Auto) 0.3 TH/MM3 0.1 TH/MM3 0.1 TH/MM3 0.0 TH/MM3 Eosinophils # (Auto) 0.0 TH/MM3 0.0 TH/MM3 0.0 TH/MM3 0.0 TH/MM3 Basophils # (Auto) 0.0 TH/MM3 0.0 TH/MM3 0.0 TH/MM3 0.0 TH/MM3 CBC Comment DIFF FINAL DIFF FINAL DIFF FINAL DIFF FINAL Differential Comment Blood Urea Nitrogen 12 MG/DL 12 MG/DL 13 MG/DL 12 MG/DL Creatinine 0.67 MG/DL 0.57 MG/DL 0.53 MG/DL 0.54 MG/DL Random Glucose 120 MG/DL 123 MG/DL 115 MG/DL 72 MG/DL Total Protein 5.8 GM/DL 5.8 GM/DL 5.4 GM/DL 5.0 GM/DL Albumin 2.1 GM/DL 2.1 GM/DL 2.0 GM/DL 1.9 GM/DL Calcium Level 7.1 MG/DL 7.3 MG/DL 7.1 MG/DL 6.8 MG/DL Phosphorus Level 2.5 MG/DL 1.6 MG/DL Magnesium Level 1.1 MG/DL 1.8 MG/DL 1.5 MG/DL 1.5 MG/DL Alkaline Phosphatase 81 U/L 82 U/L 76 U/L 72 U/L Aspartate Amino Transf (AST/SGOT) 17 U/L 12 U/L 15 U/L 13 U/L Alanine Aminotransferase (ALT/SGPT) 15 U/L 17 U/L 19 U/L 22 U/L Total Bilirubin 0.3 MG/DL 0.3 MG/DL 0.3 MG/DL 0.3 MG/DL Sodium Level 140 MEQ/L 136 MEQ/L 138 MEQ/L 143 MEQ/L Potassium Level 3.0 MEQ/L 3.5 MEQ/L 3.2 MEQ/L 2.9 MEQ/L Chloride Level 101 MEQ/L 102 MEQ/L 103 MEQ/L 107 MEQ/L Carbon Dioxide Level 27.3 MEQ/L 27.1 MEQ/L 28.3 MEQ/L 27.4 MEQ/L Anion Gap 12 MEQ/L 7 MEQ/L 7 MEQ/L 9 MEQ/L Estimat Glomerular Filtration Rate 153 ML/MIN 184 ML/MIN 200 ML/MIN 196 ML/MIN Protein Corrected Calcium 7.8 MG/DL 8.0 MG/DL 8.0 MG/DL 7.9 MG/DL Prothrombin Time 24.1 SEC 30.1 SEC 29.3 SEC Prothromb Time International Ratio 2.1 RATIO 2.6 RATIO 2.5 RATIO Free Thyroxine 1.15 NG/DL Thyroid Stimulating Hormone 3rd Gen 15.000 uIU/ML Imaging Last Impressions Chest X-Ray 06/10/17 0000 Signed Impressions: Service Date/Time: Saturday, June 10, 2017 13:04 - CONCLUSION: Basilar infiltrates and effusions. Right paratracheal mass Tacos Garcia MD Abdomen X-Ray 05/15/17 0600 Signed Impressions: Service Date/Time: Monday, May 15, 2017 04:29 - CONCLUSION: Findings of mild small bowel ileus. There has been no significant change when compared to the prior exam. Jadon Carroll MD Central Venous Line 05/15/17 0000 Signed Impressions: Service Date/Time: Monday, May 15, 2017 00:00 - CONCLUSION: Uncomplicated catheter removal. Bryon Calero Jr., MD Catheter Placement X-Ray 05/15/17 0000 Signed Impressions: Service Date/Time: Monday, May 15, 2017 15:13 - CONCLUSION: Mild narrowing involving the brachiocephalic vein near its junction with the SVC. This is not flow limiting. A left-sided vas catheter was placed. Bryon Calero Jr., MD Abdomen/Pelvis CT 05/09/17 0000 Signed Impressions: Service Date/Time: Tuesday, May 09, 2017 21:16 - CONCLUSION: 1. Diffusely distended loops of small bowel down to the cecum suggest ileus. 2. Evidence of mesenteric and retroperitoneal adenopathy. 3. Large bilateral pleural effusions , moderate amount of free fluid in the pelvis and mild ascites in the upper abdomen. 4. Abnormal appearance to the parenchyma of the right kidney with patchy areas of hyperdensity in a mosaic pattern. This of uncertain significance. The patient had iodinated contrast for a CT pulmonary angiogram 7 days ago; this could potentially represent residual parenchymal contrast which would be nonspecific, but raises the possibility of either obstruction or renal infarctions. Bryon Evans MD Renal Ultrasound 05/05/17 0000 Signed Impressions: Service Date/Time: Friday, May 05, 2017 20:06 - CONCLUSION: 1. Kidneys are borderline echogenic which can be seen with medical renal disease. 2. No evidence of hydronephrosis. 3. Abdominal ascites. 4. Multiple dilated bowel loops. 5. Bilateral pleural effusions. Tray Patel MD Head CT 05/03/17 0000 Signed Impressions: Service Date/Time: Wednesday, May 03, 2017 17:22 - CONCLUSION: No acute intracranial disease. No hemorrhage seen. Tray Patel MD CT Angiography 05/02/17 Signed Impressions: Service Date/Time: Tuesday, May 02, 2017 11:10 - CONCLUSION: 1. There is pulmonary embolus in the right pulmonary artery, right upper lobe and lower lobe branches. 2. Resorption of previously seen gas in the left axilla with fluid collection at this site with postprocedural change and possibly postprocedural hemorrhage not significantly changed in size. 3. Interval development of right lung airspace process may represent postobstructive pneumonia and there is mucus within the trachea not present yesterday. 4. Right pleural effusion is smaller and left pleural effusion is larger. 5. No change in bulky adenopathy. Leonor Chavez MD Upper Extremity Ultrasound 04/30/17 Signed Impressions: Service Date/Time: April 12:25 - CONCLUSION: There some superficial thrombosis of a vein in the forearm. The deep venous system is patent. Large fluid collection left axilla. Significant soft tissue edema throughout the upper arm. Rinku Hillman MD Thoracentesis Ultrasound 04/30/17 Signed Impressions: Service Date/Time: April 12:14 - CONCLUSION: Uncomplicated ultrasound guided thoracentesis. Tray Patel MD Port Line Insertion 04/27/17 Signed Impressions: Service Date/Time: Thursday, April 27, 2017 14:56 - CONCLUSION: 1. Bulky bilateral lower cervical lymphadenopathy. 2. Uncomplicated ultrasound and fluoroscopic guided implanted central venous port catheter placement as described in detail above. An 8 [employer] Power port was placed. Liang Peralta MD Bone Biopsy CT 04/27/17 0000 Signed Impressions: Service Date/Time: Thursday, April 27, 2017 16:22 - CONCLUSION: 1. Uncomplicated CT guided bone marrow aspirate. 2. Uncomplicated CT guided bone marrow biopsy. Tray Patel MD Chest CT 04/25/17 0000 Signed Impressions: Service Date/Time: Wednesday, April 26, 2017 19:00 - CONCLUSION: The right pleural effusion is slightly larger on the left side has not changed. Extensive bulky adenopathy as before and malignancies such as lymphoma is suspected. Leonor Chavez MD Gall Bladder Ultrasound 04/22/17 0000 Signed Impressions: Service Date/Time: Saturday, April 22, 2017 07:35 - CONCLUSION: Small liver with focal abdomen only incompletely evaluated. Large right pleural effusion. effusion. Kirk Briceño MD FACR Abdomen CT 04/20/17 0000 Signed Impressions: Service Date/Time: Thursday, April 20, 2017 19:40 - CONCLUSION: Limited exam because of lack of intravenous contrast. Lymphoma is suspected. Pathological diagnosis could be obtained with ultrasound biopsy of the cervical, axillary or inguinal adenopathy. Kirk Briceño MD FACR Objective Remarks GENERAL: This is a well-nourished, well-developed patient, in no apparent distress. SKIN: No rashes, warm and dry HEAD: Atraumatic. Normocephalic. EYES: Pupils equal round and reactive. Extraocular motions intact. No scleral icterus. ENT: Nose without bleeding, or drainage, Airway patent. Tongue is midline ORAL mucosa is moist NECK: Trachea midline. Supple no obvious JVD CARDIOVASCULAR: Regular rate and rhythm without murmurs, gallops, or rubs. S1- S2 no S3 or S4 no heave or thrill RESPIRATORY: Fair air entry bilaterally. No wheezes, rales, or rhonchi. GASTROINTESTINAL: Abdomen soft, non-tender, nondistended. Positive bowel sounds x 4 q. MUSCULOSKELETAL: Extremities without clubbing, cyanosis, or edema. DP and Pedal pulses appreciated NEUROLOGICAL: Awake and alert. Moves all extremity. Normal speech. no focal neurological deficit Insight and judgment are good Mood and behavior appropriate Procedures 04/[address] excision biopsy 04/27- port placement 05/02-TPA 05/06-left IJ Vas-Cath placement endotracheal intubation Medications and IVs Current Medications Ondansetron HCl (Zofran Inj) 4 mg ONCE ONCE IVP Last administered on 04/18/17 17:38; Start 04/18/17 at 17:30; Stop 04/18/17 at 17:31; Status DC Sodium Chloride 1,000 ml @ 1,000 mls/hr Q1H IV Last administered on 04/18/17 17:38; Start 04/18/17 at 17:16; Stop 04/18/17 at 18:15; Status DC Sodium Chloride (NS Flush) 2 ml UNSCH PRN IV FLUSH FLUSH AFTER USING IV ACCESS Last administered on 06/06/17 09:18; Start 04/18/17 at 17:30 Sodium Chloride 1,000 ml @ 1,000 mls/hr Q1H IV Last administered on 04/18/17 18:40; Start 04/18/17 at 18:37; Stop 04/18/17 at 19:36; Status DC Potassium Chloride 100 ml @ 50 mls/hr Q2H IV Last administered on 04/18/17 22: 12; Start 04/18/17 at 19:00; Stop 04/18/17 at 22:59; Status DC Ondansetron HCl (Zofran Inj) 4 mg Q6H PRN IVP NAUSEA OR VOMITING Last administered on 04/26/17 06:04; Start 04/18/17 at 19:30; Stop 04/26/17 at 13:02 ; Status DC Morphine Sulfate (Morphine Inj) 2 mg Q3H PRN IV Pain 3-5; if unable to take PO ; Start 04/18/17 at 19:30; Status Cancel Morphine Sulfate (Morphine Inj) 4 mg Q3H PRN IV Pain 6-10;if unable to take PO ; Start 04/18/17 at 19:30; Status Cancel Naloxone HCl (Narcan Inj) 0.4 mg UNSCH PRN IV SEE LABEL COMMENTS; Start at 19:30 Senna/Docusate Sodium (Porsha-Colace) 1 tab BID PO Last administered on 07:52; Start 04/18/17 at 21:00; Stop 05/13/17 at 17:16; Status DC Magnesium Hydroxide (Milk Of Magnesia Liq) 30 ml Q12H PRN PO MILD - MODERATE CONSTIPATION Last administered on 05/09/17 08:01; Start 04/18/17 at 19:30; Stop 05/13/17 at 17:16; Status DC Sennosides (Senokot) 17.2 mg Q12H PRN PO MODERATE - SEVERE CONSTIPATION; Start 04/18/17 at 19:30; Stop 05/13/17 at 17:16; Status DC Bisacodyl (Dulcolax Supp) 10 mg DAILY PRN RECTAL SEVERE CONSITIPATION; Start at 19:30; Stop 05/13/17 at 17:16; Status DC Lactulose (Lactulose Liq) 30 ml DAILY PRN PO SEVERE CONSITIPATION; Start at 19:30; Stop 05/13/17 at 17:16; Status DC Potassium Chloride/Sodium Chloride 1,000 ml @ 125 mls/hr Q8H IV ; Start at 21:00; Stop 04/18/17 at 21:00; Status DC Potassium Chloride/Sodium Chloride 1,000 ml @ 83 mls/hr Q12H3M IV Last administered on 04/23/17 01:19; Start 04/19/17 at 02:00; Stop 04/23/17 at 09:04 ; Status DC Sodium Chloride 1,000 ml @ 125 mls/hr Q8H IV Last administered on 04/18/17 20: 00; Start 04/18/17 at 20:00; Stop 04/19/17 at 16:01; Status DC Pneumococcal Polyvalent Vaccine (Pneumovax-23 Inj) 25 mcg ONCE ONCE IM Last administered on 04/19/17 11:20; Start 04/19/17 at 09:00; Stop 04/19/17 at 09:01; Status DC Ceftriaxone Sodium 1000 mg/ Sodium Chloride 100 ml @ 200 mls/hr Q24H IV Last administered on 04/24/17 12:51; Start 04/19/17 at 13:00; Stop 04/24/17 at 14:33 ; Status DC Heparin Sodium (Porcine) (Heparin Inj) 5,000 units Q8HR SQ Last administered on 05/02/17 12:46; Start 04/19/17 at 14:00; Stop 05/19/17 at 10:23; Status DC Azithromycin (Zithromax) 500 mg Q24H PO Last administered on 04/24/17 12:51; Start 04/19/17 at 13:00; Stop 04/24/17 at 14:33; Status DC Clonidine (Catapres) 0.1 mg ONCE ONCE PO Last administered on 04/20/17 22:16 ; Start 04/20/17 at 21:45; Stop 04/20/17 at 21:46; Status DC Nifedipine (Procardia Xl) 30 mg DAILY PO Last administered on 04/25/17 09:42; Start 04/21/17 at 17:00; Stop 04/25/17 at 13:12; Status DC Hydralazine HCl (Apresoline Inj) 10 mg Q6HR PRN IV PUSH SBP>160, DBP>90 Last administered on 04/27/17 10:15; Start 04/21/17 at 17:00; Stop 06/05/17 at 10:42 ; Status DC Cefazolin Sodium 1000 mg/Sodium Chloride 100 ml @ 200 mls/hr CERTIFIED NURSES' AIDE IV ; Start 04/21/17 at 21:30; Stop 04/24/17 at 21:29; Status DC Midazolam HCl (Versed Inj) 2 mg STK-MED ONCE .ROUTE Last administered on 09:02; Start 04/22/17 at 09:02; Stop 04/22/17 at 09:03; Status DC Bupivacaine HCl/ Epinephrine Bitart (Sensorcaine-Epi 0.5% 50 ml Inj) 50 ml STK- MED ONCE INFIL ; Start 04/22/17 at 09:25; Stop 04/22/17 at 09:26; Status Cancel Albuterol Sulfate (*ALBUTEROL NEB PERIprocedure ONLY) 2.5 mg STK-MED ONCE NEB Last administered on 04/22/17 10:06; Start 04/22/17 at 10:06; Stop 04/22/17 at 10:07; Status DC Fentanyl Citrate (fentaNYL INJ) 200 mcg STK-MED ONCE .ROUTE ; Start 04/22/17 at 10:10; Stop 04/22/17 at 10:11; Status DC Bupivacaine HCl (Marcaine Pf 0.5% Inj) 30 ml STK-MED ONCE INFIL Last administered on 04/22/17 09:25; Start 04/22/17 at 09:25; Stop 04/22/17 at 10:49 ; Status DC Miscellaneous Information ALL NURSING DEPARTME... UNSCH PRN .XX SEE LABEL COMMENTS; Start 04/22/17 at 10:01; Stop 04/23/17 at 10:00; Status DC Dextrose/Sodium Chloride 1,000 ml @ 60 mls/hr [id number] IV Last administered on 04/24/17 06:40; Start 04/23/17 at 12:45; Stop 04/24/17 at 14:36; Status DC Potassium Chloride 30 meq/ Dextrose/Sodium Chloride 1,015 ml @ 70 mls/hr [id number] IV Last administered on 04/25/17 05:34; Start 04/24/17 at 16:00; Stop 04/25/17 at 13:12; Status DC Promethazine HCl (Phenergan Inj) 25 mg ONCE ONCE IM Last administered on 11:55; Start 04/25/17 at 08:00; Stop 04/25/17 at 08:01; Status DC Nifedipine (Procardia Xl) 60 mg DAILY PO Last administered on 04/27/17 10:02; Start 04/26/17 at 09:00; Stop 04/27/17 at 14:48; Status DC Potassium Chloride 30 meq/ Dextrose/Sodium Chloride 1,015 ml @ 60 mls/hr [id number] IV Last administered on 04/27/17 18:18; Start 04/25/17 at 15:00; Stop 04/28/17 at 11:49; Status DC Promethazine HCl (Phenergan Inj) 12.5 mg Q8H PRN IM PERSISTENT NAUSEA Last administered on 04/30/17 04:34; Start 04/26/17 at 13:15; Stop 04/30/17 at 11:28 ; Status DC Allopurinol (Zyloprim) 300 mg DAILY PO Last administered on 05/05/17 08:12; Start 04/27/17 at 09:00; Stop 05/05/17 at 12:10; Status DC Vancomycin HCl 1000 mg/Sodium Chloride 250 ml @ 250 mls/hr CERTIFIED NURSES' AIDE IV Last administered on 04/27/17 13:49; Start 04/27/17 at 10:00; Stop 04/30/17 at 09:59 ; Status DC Cefazolin Sodium/ Dextrose 50 ml @ 100 mls/hr CERTIFIED NURSES' AIDE IV Last administered on 04/27/17 15:42; Start 04/27/17 at 10:00; Stop 04/30/17 at 09:59; Status DC Nifedipine (Procardia Xl) 90 mg DAILY PO Last administered on 06/15/17 08:56; Start 04/28/17 at 09:00 Clonidine (Catapres) 0.1 mg Q12HR PO ; Start 04/27/17 at 21:00; Status UNV Clonidine (Catapres) 0.1 mg Q6H PRN PO SBP>160, DBP>90 Last administered on 06/15 04:24; Start 04/27/17 at 15:00 Heparin Sodium (Porcine) (*HEPARIN CENTRAL FLUSH PERIprocedural ONLY) 500 units STK-MED ONCE IV FLUSH Last administered on 04/27/17 14:51; Start 04/27/17 at 14:51; Stop 04/27/17 at 14:52; Status DC Lidocaine/ Epinephrine (Xylocaine-Epi 1%-1:100,000 Inj) 20 ml STK-MED ONCE .ROUTE Last administered on 04/27/17 14:51; Start 04/27/17 at 14:51; Stop at 14:52; Status DC Midazolam HCl (Versed Inj) 5 mg STK-MED ONCE .ROUTE Last administered on 14:52; Start 04/27/17 at 14:52; Stop 04/27/17 at 14:53; Status DC Fentanyl Citrate (fentaNYL INJ) 250 mcg STK-MED ONCE .ROUTE Last administered on 04/27/17 14:53; Start 04/27/17 at 14:53; Stop 04/27/17 at 14:54; Status DC Sodium Chloride 1,000 ml @ 100 mls/hr Q10H IV Last administered on 04/29/17 17:55; Start 04/29/17 at 15:00; Stop 04/30/17 at 00:59; Status DC Acetaminophen (Tylenol) 650 mg ONCE ONCE PO Last administered on 04/30/17 16: 44; Start 04/30/17 at 13:00; Stop 04/30/17 at 13:01; Status DC Diphenhydramine HCl (Benadryl) 50 mg ONCE ONCE PO Last administered on 16:43; Start 04/30/17 at 13:00; Stop 04/30/17 at 13:01; Status DC Rituximab 716.25 mg/Sodium Chloride 571.625 ml @ 0 mls/hr ONCE ONCE IV Last administered on 05/01/17 13:15; Start 04/30/17 at 14:00; Stop 04/30/17 at 14:01 ; Status DC Prednisone (Deltasone) 115 mg Q12H PO ; Start 04/30/17 at 13:00; Stop 05/01/17 at 11:21; Status DC Dexamethasone Sodium Phosphate 20 mg/Granisetron HCl 1 mg/Sodium Chloride 56 ml @ 224 mls/hr Q24H IV ; Start 04/30/17 at 15:00; Stop 05/01/17 at 11:26; Status DC Potassium Chloride 100 ml @ 50 mls/hr BOLUS ONCE IV Last administered on 04/30 10:20; Start 04/30/17 at 10:00; Stop 04/30/17 at 11:59; Status DC Etoposide 95.5 mg/ Doxorubicin HCl 19.1 mg/ Vincristine Sulfate 0.764 mg/ Sodium Chloride 515.089 ml @ 21.462 mls/hr Q24H IV ; Start 04/30/17 at 15:00; Stop 05/18/17 at 13:46; Status DC Cyclophosphamide 1432.5 mg/Sodium Chloride 500 ml @ 500 mls/hr ONCE ONCE IV ; Start 05/04/17 at 14:00; Stop 05/04/17 at 14:59; Status DC Ondansetron HCl (Zofran Inj) 4 mg Q6HR PRN IV PUSH NAUSEA OR VOMITING Last administered on 05/07/17 10:06; Start 04/30/17 at 11:30 Promethazine HCl (Phenergan Inj) 25 mg Q6H PRN IM NAUSEA OR VOMITING Last administered on 05/01/17 13:27; Start 04/30/17 at 11:30 Acetaminophen/ Hydrocodone Bitart ([place] 5-325 Mg) 1 tab Q6H PRN PO PAIN SCALE 1 TO 10 Last administered on 06/12/17 23:53; Start 04/30/17 at 11:30 Albuterol/ Ipratropium (Duoneb Neb) 1 ampule ONCE ONCE NEB Last administered on 04/30/17 20:16; Start 04/30/17 at 19:45; Stop 04/30/17 at 20:11; Status DC Albuterol/ Ipratropium (Duoneb Neb) 1 ampule Q2HR NEB PRN NEB sob, wheeze; Start 04/30/17 at 20:45; Stop 05/02/17 at 10:14; Status DC Morphine Sulfate (Morphine Inj) 2 mg ONCE ONCE IV PUSH Last administered on 23:36; Start 04/30/17 at 23:30; Stop 04/30/17 at 23:31; Status DC Furosemide (Lasix Inj) 10 mg ONCE ONCE IV PUSH Last administered on 05/01/17 01:01; Start 05/01/17 at 00:00; Stop 05/01/17 at 00:01; Status DC Furosemide (Lasix Inj) 20 mg ONCE ONCE IV PUSH Last administered on 05/01/17 09:09; Start 05/01/17 at 07:45; Stop 05/01/17 at 07:52; Status DC Acetaminophen (Tylenol) 650 mg NOW ONCE PO Last administered on 05/01/17 10: 51; Start 05/01/17 at 10:45; Stop 05/01/17 at 10:46; Status DC Diphenhydramine HCl (Benadryl) 50 mg NOW ONCE PO Last administered on 10:51; Start 05/01/17 at 10:45; Stop 05/01/17 at 10:46; Status DC Rituximab 716.25 mg/Sodium Chloride 571.625 ml @ 0 mls/hr ONCE ONCE IV ; Start 05/01/17 at 12:00; Stop 05/01/17 at 12:01; Status DC Acetaminophen (Tylenol) 650 mg ONCE ONCE PO ; Start 05/01/17 at 11:30; Stop at 11:31; Status DC Diphenhydramine HCl (Benadryl) 50 mg ONCE ONCE PO ; Start 05/01/17 at 11:30; Stop 05/01/17 at 11:31; Status DC Prednisone (Deltasone) 115 mg Q12HR PO Last administered on 05/02/17 20:08; Start 05/01/17 at 11:00; Stop 05/05/17 at 21:01; Status DC Dexamethasone Sodium Phosphate 20 mg/Granisetron HCl 1 mg/Sodium Chloride 56 ml @ 224 mls/hr Q24H IV ; Start 05/01/17 at 11:30; Stop 05/06/17 at 11:44; Status DC Metoclopramide HCl (Reglan Inj) 10 mg Q8HR IV PUSH Last administered on 04:59; Start 05/01/17 at 15:30; Stop 05/09/17 at 19:03; Status DC Pantoprazole Sodium (Protonix) 40 mg DAILY PO Last administered on 05/06/17 08 :17; Start 05/01/17 at 16:00; Stop 05/07/17 at 11:49; Status DC Furosemide (Lasix Inj) 20 mg ONCE ONCE IV PUSH Last administered on 05/01/17 16:14; Start 05/01/17 at 15:30; Stop 05/01/17 at 15:31; Status DC Albuterol/ Ipratropium (Duoneb Neb) 1 ampule BID NEB INH Last administered on 05/02/17 07:47; Start 05/01/17 at 20:00; Stop 05/02/17 at 10:18; Status DC Furosemide (Lasix Inj) 20 mg STAT ONCE IV PUSH Last administered on 05/02/17 08:40; Start 05/02/17 at 08:30; Stop 05/02/17 at 08:37; Status DC Etomidate (Amidate Inj) 20 mg STK-MED ONCE .ROUTE Last administered on 12:48; Start 05/02/17 at 09:23; Stop 05/02/17 at 09:24; Status DC Dextrose (D50w (Vial) Inj) 25 ml UNSCH PRN IV PUSH HYPOGLYCEMIA-SEE COMMENTS; Start 05/02/17 at 10:00; Stop 05/16/17 at 08:09; Status DC Insulin Human Regular (NovoLIN R SUPPLEMENTAL SCALE) 1 Q6HR SQ Last administered on 05/04/17 18:00; Start 05/02/17 at 12:00; Stop 05/16/17 at 08:09 ; Status DC Chlorhexidine Gluconate (Peridex 0.12% Liq) 15 ml BID@08,20 MT Last administered on 06/02/17 09:27; Start 05/02/17 at 20:00; Stop 06/05/17 at 10:42 ; Status DC Magnesium Oxide (Mag-Ox) 800 mg UNSCH PRN PO For Magnesium 1.2 - 1.6 mg/dL; Start 05/02/17 at 10:00; Stop 05/03/17 at 13:51; Status DC Magnesium Sulfate 4 gm/Sodium Chloride 100 ml @ 50 mls/hr UNSCH PRN IV For Magnesium 0.9 - 1.1 mg/dL; Start 05/02/17 at 10:00; Stop 05/03/17 at 13:51; Status DC Magnesium Sulfate 2 gm/Sodium Chloride 100 ml @ 50 mls/hr UNSCH PRN IV For Magnesium 1.2 - 1.6 mg/dL; Start 05/02/17 at 10:00; Stop 05/03/17 at 13:51; Status DC Potassium Chloride 100 ml @ 50 mls/hr Q2H PRN IV For Potassium 2.8 - 3.2 mEq/L ; Start 05/02/17 at 10:00; Stop 05/03/17 at 13:51; Status DC Potassium Chloride 100 ml @ 50 mls/hr Q2H PRN IV For Potassium 3.3 - 3.5 mEq/L ; Start 05/02/17 at 10:00; Stop 05/03/17 at 13:51; Status DC Potassium Chloride 100 ml @ 50 mls/hr Q2H PRN IV For Potassium 2.8 - 3.2 mEq/L ; Start 05/02/17 at 10:00; Stop 05/03/17 at 13:51; Status DC Potassium Chloride 100 ml @ 25 mls/hr UNSCH PRN IV For Potassium 3.3 - 3.5 mEq /L; Start 05/02/17 at 10:00; Stop 05/03/17 at 13:51; Status DC Potassium Phosphate (K-Phos) 2,000 mg Q4H PRN PO For Phosphorus < 2.5 mg/dL; Start 05/02/17 at 10:00; Stop 05/03/17 at 13:51; Status DC Potassium Phosphate (K-Phos) 2,000 mg UNSCH PRN PO/TUBE SEE LABEL COMMENTS; Start 05/02/17 at 10:00; Stop 05/03/17 at 13:51; Status DC Potassium Phosphate 30 mmol/ Sodium Chloride 260 ml @ 42 mls/hr UNSCH PRN IV SEE LABEL COMMENTS; Start 05/02/17 at 10:00; Stop 05/03/17 at 13:52; Status DC Sodium Phosphate 30 mmol/Sodium Chloride 250 ml @ 42 mls/hr UNSCH PRN IV For Phosphorus < 2.5 mg/dL; Start 05/02/17 at 10:00; Stop 05/03/17 at 13:52; Status DC Albuterol/ Ipratropium (Duoneb Neb) 1 ampule Q6HR NEB INH Last administered on 05/06/17 03:23; Start 05/02/17 at 10:00; Stop 05/06/17 at 10:00; Status DC Albuterol/ Ipratropium (Duoneb Neb) 1 ampule Q2HR NEB PRN INH WHEEZING Last administered on 05/08/17 08:08; Start 05/02/17 at 10:00 Fentanyl Citrate 250 ml @ 0 mls/hr TITRATE IV Last administered on 05/10/17 05 :36; Start 05/02/17 at 10:00; Stop 06/03/17 at 12:04; Status DC Propofol 100 ml @ 0 mls/hr TITRATE IV Last administered on 05/10/17 06:54; Start 05/02/17 at 10:00; Stop 06/03/17 at 12:04; Status DC Iohexol (Omnipaque 350 Inj) 75 ml STK-MED ONCE IV Last administered on 11:31; Start 05/02/17 at 11:31; Stop 05/02/17 at 11:32; Status DC Cefepime HCl 2000 mg/Sodium Chloride 100 ml @ 200 mls/hr Q12H IV Last administered on 05/05/17 02:43; Start 05/02/17 at 15:00; Stop 05/05/17 at 11:53 ; Status DC Vancomycin HCl 1000 mg/Sodium Chloride 250 ml @ 250 mls/hr ONCE ONCE IV Last administered on 05/02/17 16:14; Start 05/02/17 at 15:00; Stop 05/02/17 at 15:59 ; Status DC Heparin Sodium (Porcine) (Heparin Inj) 5,000 units ONCE ONCE IV Last administered on 05/02/17 15:35; Start 05/02/17 at 16:00; Stop 05/02/17 at 16:01 ; Status DC Miscellaneous Information Patient in critical care unit? Ass... [id number] .XX Last administered on 05/02/17 17:30; Start 05/02/17 at 17:15; Stop 06/05/17 at 10:42; Status DC Chlorhexidine Gluconate (Chlorhexidine 2% Cloth) 3 pack DAILY@04 TOPICAL Last administered on 05/07/17 03:45; Start 05/03/17 at 04:00; Stop 05/07/17 at 04:01 ; Status DC Chlorhexidine Gluconate (Chlorhexidine 2% Cloth) 3 pack UNSCH PRN TOPICAL HYGIENIC CARE; Start 05/02/17 at 17:15; Stop 05/07/17 at 17:08; Status DC Alteplase, Recombinant 50 mg/ Syringe / Bag 49.9999 ml @ 50 mls/hr ONCE ONCE IV Last administered on 05/02/17 19:58; Start 05/02/17 at 19:15; Stop at 20:14; Status DC Sodium Chloride (NS Inj) 30 ml ONCE ONCE IVF Last administered on 05/02/17 19 :15; Start 05/02/17 at 19:15; Stop 05/02/17 at 19:28; Status DC Miscellaneous Medication ([facility]) Thrombolysis plan for submass... ONCE ONCE OTHER Last administered on 05/02/17 19:15; Start at 19:15; Stop 05/02/17 at 19:28; Status DC Heparin Sodium/ Dextrose 250 ml @ 0 mls/hr TITRATE IV Last administered on 05/26 06:57; Start 05/03/17 at 02:00; Stop 05/27/17 at 07:44; Status DC Epinephrine HCl 2 mg/Dextrose 250 ml @ 30 mls/hr TITRATE IV Last administered on 05/04/17 09:43; Start 05/03/17 at 10:15; Stop 05/07/17 at 16:44; Status DC Calcium Acetate (Phoslo) 2,668 mg TID PO Last administered on 05/27/17 12:23; Start 05/03/17 at 09:00; Stop 05/27/17 at 12:34; Status DC Epoprostenol Sodium 87.5 ml/ Sodium Chloride 100 ml @ 8 mls/hr Q8H NEB Last administered on 05/04/17 00:17; Start 05/03/17 at 09:00; Stop 05/04/17 at 14:14 ; Status DC Lidocaine HCl (Xylocaine 1% Inj (50 ml)) 50 ml STK-MED ONCE .ROUTE ; Start 05/03 at 12:21; Stop 05/03/17 at 12:22; Status DC Epoprostenol Sodium 40 ml/ Sodium Chloride 100 ml @ 8 mls/hr Q8H NEB Last administered on 05/06/17 06:04; Start 05/04/17 at 15:00; Stop 05/06/17 at 12:43 ; Status DC Calcium Gluconate 2 gm/Dextrose 120 ml @ 120 mls/hr ONCE ONCE IV Last administered on 05/04/17 20:00; Start 05/04/17 at 20:00; Stop 05/04/17 at 20:59 ; Status DC Cefepime HCl 2000 mg/Sodium Chloride 100 ml @ 200 mls/hr Q24H IV Last administered on 05/08/17 01:36; Start 05/06/17 at 03:00; Stop 05/08/17 at 23:00 ; Status DC Allopurinol (Zyloprim) 200 mg DAILY PO Last administered on 05/27/17 08:09; Start 05/06/17 at 09:00; Stop 05/27/17 at 14:46; Status DC Artificial Tears (Tears Naturale Opth Soln) 1 drop Q8H EACH EYE Last administered on 05/07/17 10:06; Start 05/05/17 at 18:00; Stop 05/07/17 at 12:11 ; Status DC Fentanyl Citrate (fentaNYL INJ) 100 mcg STK-MED ONCE IV ; Start 04/22/17 at 12: 00; Stop 05/06/17 at 12:46; Status DC Propofol (Diprivan 200 Mg/20 ml Inj) 200 mg STK-MED ONCE IV ; Start 04/22/17 at 12:00; Stop 05/06/17 at 12:46; Status DC Phenylephrine HCl (Neosynephrine/ NS 1000 Mcg/10ml Syr) 1,000 mcg STK-MED ONCE IV ; Start 04/22/17 at 12:00; Stop 05/06/17 at 12:47; Status DC Ondansetron HCl (Zofran Inj) 4 mg STK-MED ONCE IV PUSH ; Start 04/22/17 at 12:00 ; Stop 05/06/17 at 12:47; Status DC Pantoprazole Sodium (Protonix Inj) 40 mg DAILY IV PUSH Last administered on 06/15 08:56; Start 05/07/17 at 12:00 Artificial Tears (Lacrilube Opht Oint) 1 applic Q8H EACH EYE Last administered on 06/03/17 19:02; Start 05/07/17 at 18:00 Sodium Chloride 1,000 ml @ 0 mls/hr TITRATE PRN IV WITH DIALYSIS Last administered on 05/22/17 12:08; Start 05/07/17 at 18:00; Stop 06/05/17 at 10:42 ; Status DC Heparin Sodium (Porcine) (Heparin Inj) 8,000 units UNSCH PRN IV FLUSH WITH DIALYSIS; Start 05/07/17 at 18:00; Stop 06/05/17 at 10:42; Status DC Sodium Chloride 1,000 ml @ 200 mls/hr Q5H PRN IV WITH DIALYSIS Last administered on 05/25/17 10:29; Start 05/07/17 at 18:00; Stop 06/10/17 at 10:44 ; Status DC Sodium Chloride 200 ml @ 0 mls/hr UNSCH PRN IV WITH DIALYSIS; Start 05/07/17 at 18:00; Stop 06/05/17 at 10:42; Status DC Mannitol (Mannitol Inj) 12.5 gm UNSCH PRN IV WITH DIALYSIS; Start 05/07/17 at 18:00; Stop 06/05/17 at 10:42; Status DC Albumin Human (Albumin 25% Inj) 25 gm UNSCH PRN IV WITH DIALYSIS; Start at 18:00; Stop 06/05/17 at 10:42; Status DC Sodium Chloride (NS Flush) 5 ml UNSCH PRN IV FLUSH WITH DIALYSIS Last administered on 05/25/17 03:50; Start 05/07/17 at 18:00; Stop 06/05/17 at 10:42 ; Status DC Heparin Sodium (Porcine) (Heparin Inj) Dwell Heparin to f... UNSCH PRN OTHER WITH DIALYSIS Last administered on 05/25/17 10:31; Start 05/07/17 at 18:00; Stop 06/05/17 at 10:42; Status DC Gentamicin Sulfate (Gentamicin (Dialysis) Inj) 10 mg UNSCH PRN OTHER WITH DIALYSIS Last administered on 05/25/17 10:29; Start 05/07/17 at 18:00; Stop at 10:42; Status DC Gelatin (Gelfoam 12 Mm/7 Mm Top) 1 foam UNSCH PRN TOPICAL WITH DIALYSIS; Start 05/07/17 at 18:00; Stop 06/05/17 at 10:42; Status DC Ondansetron HCl (Zofran Inj) 4 mg UNSCH PRN IV NAUSEA OR VOMITING; Start at 18:00; Stop 06/10/17 at 10:44; Status DC Acetaminophen (Tylenol) 650 mg UNSCH X1 PRN PO WITH DIALYSIS Last administered on 05/08/17 10:07; Start 05/07/17 at 18:00; Stop 05/14/17 at 17:59; Status DC Diphenhydramine HCl (Benadryl) 25 mg UNSCH PRN PO WITH DIALYSIS; Start at 18:00; Stop 06/05/17 at 10:42; Status DC Nitroglycerin (Nitrostat Sl) 0.4 mg UNSCH PRN SL WITH DIALYSIS; Start 05/07/17 at 18:00; Stop 06/05/17 at 10:42; Status DC Clonidine (Catapres) 0.1 mg UNSCH PRN PO WITH DIALYSIS; Start 05/07/17 at 18:00 ; Stop 06/05/17 at 10:42; Status DC Polyethylene Glycol (Miralax) 17 gm DAILY PO Last administered on 05/10/17 07: 52; Start 05/08/17 at 09:00; Stop 05/13/17 at 17:16; Status DC Lactulose (Lactulose Liq) 30 ml BID PO Last administered on 05/10/17 07:51; Start 05/08/17 at 09:00; Stop 05/13/17 at 17:16; Status DC Bisacodyl (Dulcolax Supp) 10 mg DAILY PRN RECTAL CONSTIPATION; Start 05/08/17 at 08:15; Stop 05/08/17 at 08:16; Status DC Diatrizoate Meglum/ Diatrizoate Sod ( Gastroview Liq) 18 ml ONCE ONCE PO Last administered on 05/09/17 16:42; Start 05/09/17 at 14:15; Stop 05/09/17 at 14:16; Status DC Heparin Sodium (Porcine) (Heparin Inj) 300 units NOW ONCE IV ; Start 05/09/17 at 18:30; Stop 05/09/17 at 18:31; Status DC Potassium Chloride 100 ml @ 50 mls/hr BOLUS ONCE IV Last administered on 05/10 13:31; Start 05/10/17 at 12:30; Stop 05/10/17 at 14:29; Status DC Sucralfate (Carafate Liq) 1 gm Q8HR PO Last administered on 05/13/17 04:46; Start 05/10/17 at 14:00; Stop 05/13/17 at 13:59; Status DC Potassium Chloride 100 ml @ 50 mls/hr ONCE ONCE IV Last administered on 08:54; Start 05/11/17 at 08:30; Stop 05/11/17 at 10:29; Status DC Metronidazole (Flagyl) 500 mg Q8HR PO Last administered on 05/25/17 05:32; Start 05/11/17 at 14:00; Stop 05/25/17 at 12:07; Status DC Morphine Sulfate (Morphine Inj) 4 mg NOW ONCE IV PUSH Last administered on 05/12 09:58; Start 05/12/17 at 09:45; Stop 05/12/17 at 09:46; Status DC Potassium Chloride 100 ml @ 25 mls/hr ONCE ONCE IV Last administered on 13:51; Start 05/12/17 at 13:45; Stop 05/12/17 at 17:44; Status DC Vancomycin HCl (VANCOMYCIN for oral use only) 500 mg QID PO Last administered on 05/25/17 21:09; Start 05/13/17 at 13:00; Stop 05/25/17 at 23:00; Status DC Dronabinol (Marinol) 5 mg BID@11,16 PO Last administered on 06/14/17 16:42; Start 05/14/17 at 16:00 Heparin Sodium (Porcine) (*HEPARIN INJ Periprocedural ONLY) 10,000 units STK- MED ONCE .ROUTE Last administered on 05/15/17 15:50; Start 05/15/17 at 15:24; Stop 05/15/17 at 15:25; Status DC Sodium Chloride (NS Flush) UNSCH PRN IVF SEE PROTOCOL Last administered on 03:51; Start 05/15/17 at 16:00; Stop 06/05/17 at 10:43; Status DC Heparin Sodium (Porcine) (Heparin Inj) UNSCH PRN IV FLUSH SEE PROTOCOL; Start 05/15/17 at 16:00; Stop 06/05/17 at 10:43; Status DC Iohexol (Omnipaque 350 Inj) 10 ml STK-MED ONCE IV Last administered on 15:50; Start 05/15/17 at 20:42; Stop 05/15/17 at 20:43; Status DC Potassium Chloride (KCl) 30 meq ONCE ONCE PO Last administered on 05/16/17 11: 06; Start 05/16/17 at 09:00; Stop 05/16/17 at 09:01; Status DC Dexamethasone (Decadron) 40 mg ONCE ONCE PO ; Start 05/16/17 at 13:00; Stop 05/16 at 13:01; Status DC Potassium Chloride (KCl) 30 meq ONCE ONCE PO Last administered on 05/17/17 08: 57; Start 05/17/17 at 07:45; Stop 05/17/17 at 07:46; Status DC Potassium Chloride (KCl) 20 meq ONCE ONCE PO Last administered on 05/17/17 15: 00; Start 05/17/17 at 13:00; Stop 05/17/17 at 13:01; Status DC Granisetron HCl (Kytril Inj) 1 mg ONCE ONCE IV PUSH Last administered on 17:02; Start 05/18/17 at 16:30; Stop 05/18/17 at 16:31; Status DC Dexamethasone Sodium Phosphate 20 mg/Sodium Chloride 55 ml @ 220 mls/hr ONCE ONCE IV Last administered on 05/18/17 17:02; Start 05/18/17 at 16:30; Stop at 16:44; Status DC Doxorubicin HCl (Adriamycin Inj) 91 mg ONCE ONCE IV PUSH Last administered on 05/18/17 17:35; Start 05/18/17 at 17:00; Stop 05/18/17 at 17:01; Status DC Vincristine Sulfate 2 mg/ Sodium Chloride 52 ml @ 312 mls/hr ONCE ONCE IV Last administered on 05/18/17 17:50; Start 05/18/17 at 17:30; Stop 05/18/17 at 17: 39; Status DC Cyclophosphamide 1019 mg/Sodium Chloride 500 ml @ 500 mls/hr ONCE ONCE IV Last administered on 05/18/17 18:08; Start 05/18/17 at 18:00; Stop 05/18/17 at 18: 59; Status DC Prednisone (Deltasone) 91 mg HS PO Last administered on 05/22/17 19:54; Start 05/18/17 at 21:00; Stop 05/22/17 at 21:01; Status DC Sodium Chloride 250 ml @ 0 mls/hr ONCE ONCE IV Last administered on 05/18/17 17:00; Start 05/18/17 at 17:00; Stop 05/18/17 at 17:01; Status DC Warfarin Sodium (Coumadin) 1 mg DAILY@16 PO Last administered on 05/20/17 17:37 ; Start 05/19/17 at 16:00; Stop 05/21/17 at 12:42; Status DC Patient Medication Teaching (Coumadin Booklet) 1 ONCE ONCE OTHER Last administered on 05/19/17 16:00; Start 05/19/17 at 16:00; Stop 05/19/17 at 16:01; Status DC Warfarin Sodium (Coumadin) 1 mg NOW ONCE PO Last administered on 05/19/17 19: 40; Start 05/19/17 at 19:45; Stop 05/19/17 at 19:46; Status DC Sodium Chloride 250 ml @ 15 mls/hr ONCE ONCE IV Last administered on 18:36; Start 05/20/17 at 10:00; Stop 05/21/17 at 02:39; Status DC Albuterol Sulfate (Ventolin Hfa Inh) 2 puff Q6HR INH Last administered on 23:45; Start 05/21/17 at 00:00; Stop 05/29/17 at 07:34; Status DC Warfarin Sodium (Coumadin) 2 mg DAILY@16 PO Last administered on 05/21/17 17: 27; Start 05/21/17 at 16:00; Stop 05/22/17 at 14:13; Status DC Epoetin Oleksandr (Epogen Inj) 10,000 units UNSCH PRN IV WITH DIALYSIS Last administered on 05/25/17 10:30; Start 05/21/17 at 18:30; Stop 06/05/17 at 10:43 ; Status DC Warfarin Sodium (Coumadin) 3 mg DAILY@16 PO Last administered on 05/22/17 18: 35; Start 05/22/17 at 16:00; Stop 05/23/17 at 12:26; Status DC Warfarin Sodium (Coumadin) 4 mg DAILY@16 PO Last administered on 06/02/17 17: 39; Start 05/23/17 at 16:00; Stop 06/03/17 at 11:39; Status DC Sodium Chloride (NS Flush) 5 ml UNSCH PRN IV FLUSH SEE PROTOCOL TABLE Last administered on 05/25/17 03:51; Start 05/24/17 at 06:45; Stop 06/05/17 at 10:43 ; Status DC Heparin Sodium (Porcine) (Heparin Central Flush) 250 units UNSCH PRN IV FLUSH SEE PROTOCOL TABLE Last administered on 06/02/17 05:14; Start 05/24/17 at 06:45 ; Stop 06/06/17 at 19:57; Status DC Heparin Sodium (Porcine) (Heparin Central Flush) 500 units UNSCH IV FLUSH ; Start 05/24/17 at 06:45; Stop 06/06/17 at 19:57; Status DC Sodium Chloride 250 ml @ 15 mls/hr ONCE ONCE IV ; Start 05/25/17 at 10:00; Stop 05/26/17 at 02:39; Status DC Potassium Chloride (KCl) 20 meq ONCE ONCE PO Last administered on 05/25/17 12 :08; Start 05/25/17 at 11:00; Stop 05/25/17 at 11:10; Status DC Potassium Chloride (KCl) 40 meq ONCE ONCE PO Last administered on 05/26/17 09 :06; Start 05/26/17 at 08:30; Stop 05/26/17 at 08:31; Status DC Filgrastim 300 mcg/Dextrose 25 ml @ 100 mls/hr DAILY@14 IV Last administered on 05/31/17 12:50; Start 05/26/17 at 15:00; Stop 05/31/17 at 14:20; Status DC Potassium Chloride (KCl) 40 meq ONCE ONCE PO Last administered on 05/27/17 08 :24; Start 05/27/17 at 08:15; Stop 05/27/17 at 08:16; Status DC Potassium Chloride (KCl) 20 meq ONCE ONCE PO Last administered on 05/27/17 12 :23; Start 05/27/17 at 13:00; Stop 05/27/17 at 13:01; Status DC Magnesium Sulfate/ Dextrose 100 ml @ 100 mls/hr ONCE ONCE IV Last administered on 05/27/17 14:31; Start 05/27/17 at 13:30; Stop 05/27/17 at 14:29 ; Status DC Allopurinol (Zyloprim) 300 mg DAILY PO Last administered on 06/15/17 08:56; Start 05/28/17 at 09:00 Magnesium Oxide (Mag-Ox) 400 mg Q12HR PO Last administered on 06/15/17 08:56; Start 05/28/17 at 09:00 Potassium Chloride (KCl) 20 meq ONCE ONCE PO Last administered on 05/28/17 09 :54; Start 05/28/17 at 09:00; Stop 05/28/17 at 09:01; Status DC Albuterol Sulfate (Ventolin Hfa Inh) 2 puff Q6HR PRN INH SHORTNESS OF BREATH; Start 05/29/17 at 07:30 Potassium Chloride (KCl) 30 meq ONCE ONCE PO Last administered on 05/29/17 15 :50; Start 05/29/17 at 14:00; Stop 05/29/17 at 14:15; Status DC Potassium Chloride (KCl) 30 meq ONCE ONCE PO Last administered on 05/29/17 17 :24; Start 05/29/17 at 18:00; Stop 05/29/17 at 18:01; Status DC Potassium Chloride (KCl) 40 meq STK-MED ONCE PO Last administered on 05/31/17 12:13; Start 05/31/17 at 12:13; Stop 05/31/17 at 12:20; Status DC Magnesium Sulfate/ Dextrose 200 ml @ As Directed STK-MED ONCE .ROUTE Last administered on 05/31/17 12:14; Start 05/31/17 at 12:14; Stop 05/31/17 at 12:21 ; Status DC Multi-Ingredient Ointment (Eucerin Cream) 1 applic Q6H PRN TOPICAL DRY SKIN Last administered on 05/31/17 17:46; Start 05/31/17 at 14:00 Potassium Phos/ Sodium Phos (K-Phos Neutral) 250 mg Q8HR PO Last administered on 06/12/17 05:01; Start 06/01/17 at 08:15; Stop 06/12/17 at 15:09; Status DC Pharmacy Profile Note 0 ml @ 0 mls/hr UNSCH OTHER ; Start 06/01/17 at 09:30 Warfarin Sodium (Coumadin) 1 mg ONCE ONCE PO Last administered on 06/02/17 17 :39; Start 06/02/17 at 16:00; Stop 06/02/17 at 16:01; Status DC Warfarin Sodium (Coumadin) 3 mg ONCE ONCE PO ; Start 06/03/17 at 16:00; Stop at 16:01; Status Cancel Heparin Sodium/ Dextrose 250 ml @ 11.448 mls/ hr TITRATE PRN IV Coagulation management; Start 06/03/17 at 09:15; Stop 06/03/17 at 12:04; Status DC Warfarin Sodium (Coumadin) 5 mg DAILY@1600 PO Last administered on 06/04/17 17 :36; Start 06/03/17 at 16:00; Stop 06/05/17 at 10:43; Status DC Enoxaparin Sodium (Lovenox Inj) 60 mg Q12H SQ Last administered on 06/09/17 00 :25; Start 06/03/17 at 13:00; Stop 06/09/17 at 08:27; Status DC Warfarin Sodium (Coumadin) 2.5 mg ONCE ONCE PO ; Start 06/05/17 at 16:00; Stop 06/05/17 at 16:01; Status Cancel Warfarin Sodium (Coumadin) 6 mg DAILY@1600 PO Last administered on 06/07/17 15 :00; Start 06/06/17 at 16:00; Stop 06/10/17 at 10:44; Status DC Warfarin Sodium (Coumadin) 7.5 mg ONCE@1600 ONCE PO Last administered on 15:44; Start 06/05/17 at 16:00; Stop 06/05/17 at 16:01; Status DC Sodium Chloride (NS Flush) 5 ml UNSCH PRN IV FLUSH SEE PROTOCOL TABLE; Start at 20:00 Heparin Sodium (Porcine) (Heparin Central Flush) 250 units UNSCH PRN IV FLUSH SEE PROTOCOL TABLE; Start 06/06/17 at 20:00 Heparin Sodium (Porcine) (Heparin Central Flush) 500 units UNSCH IV FLUSH Last administered on 06/06/17 21:17; Start 06/06/17 at 20:00 Rituximab 686.3 mg/Sodium Chloride 568.63 ml @ 0 mls/hr ONCE ONCE IV Last administered on 06/08/17 13:23; Start 06/08/17 at 13:00; Stop 06/08/17 at 13:01 ; Status DC Acetaminophen (Tylenol) 650 mg ONCE ONCE PO Last administered on 06/08/17 12: 43; Start 06/08/17 at 12:30; Stop 06/08/17 at 12:31; Status DC Diphenhydramine HCl (Benadryl) 50 mg ONCE ONCE PO Last administered on 12:43; Start 06/08/17 at 12:30; Stop 06/08/17 at 12:31; Status DC Sodium Chloride 1,000 ml @ 100 mls/hr Q10H IV Last administered on 06/08/17 12:43; Start 06/08/17 at 13:00; Stop 06/08/17 at 23:59; Status DC Granisetron HCl 1 mg/Dexamethasone Sodium Phosphate 20 mg/Sodium Chloride 56 ml @ 224 mls/hr DAILY@1430 IV ; Start 06/09/17 at 14:30; Stop 06/09/17 at 14:30; Status DC Etoposide 91.5 mg/ Doxorubicin HCl 18.3 mg/ Vincristine Sulfate 0.7 mg/ Sodium Chloride 514.425 ml @ 21.024 mls/hr Q24H IV ; Start 06/09/17 at 15:00; Stop at 15:00; Status DC Prednisone (Deltasone) 100 mg Q12H PO Last administered on 06/13/17 22:24; Start 06/09/17 at 11:00; Stop 06/13/17 at 23:01; Status DC Prednisone (Deltasone) 10 mg Q12H PO Last administered on 06/13/17 22:24; Start 06/09/17 at 11:00; Stop 06/13/17 at 23:01; Status DC Cyclophosphamide 1372.5 mg/Sodium Chloride 500 ml @ 500 mls/hr ONCE ONCE IV Last administered on 06/14/17 01:34; Start 06/13/17 at 15:00; Stop 06/13/17 at 15: 59; Status DC Etoposide 91.5 mg/ Doxorubicin HCl 18.3 mg/ Vincristine Sulfate 0.7 mg/ Sodium Chloride 514.425 ml @ 21.024 mls/hr Q24H IV Last administered on 06/13/17 00: 51; Start 06/09/17 at 13:00; Stop 06/13/17 at 12:59; Status DC Sodium Chloride 1,000 ml @ 50 mls/hr Q20H IV Last administered on 06/14/17 16: 43; Start 06/09/17 at 09:00 Granisetron HCl 1 mg/Dexamethasone Sodium Phosphate 20 mg/Sodium Chloride 56 ml @ 224 mls/hr DAILY@1230 IV Last administered on 06/13/17 00:09; Start at 12:30; Stop 06/12/17 at 12:44; Status DC Magnesium Sulfate/ Dextrose 100 ml @ 100 mls/hr Q1H IV Last administered on 11:25; Start 06/09/17 at 11:00; Stop 06/09/17 at 12:59; Status DC Potassium Chloride (KCl) 40 meq ONCE ONCE PO Last administered on 06/09/17 10 :27; Start 06/09/17 at 10:15; Stop 06/09/17 at 10:16; Status DC Warfarin Sodium (Coumadin) 5 mg DAILY@1600 PO ; Start 06/10/17 at 16:00; Stop at 16:00; Status DC Warfarin Sodium (Coumadin) 5 mg DAILY@1600 PO Last administered on 06/13/17 18: 24; Start 06/10/17 at 16:00; Stop 06/14/17 at 09:07; Status DC Magnesium Oxide (Mag-Ox) 400 mg ONCE ONCE PO Last administered on 06/11/17 12 :57; Start 06/11/17 at 10:30; Stop 06/11/17 at 10:31; Status DC Potassium Chloride (KCl) 40 meq ONCE ONCE PO Last administered on 06/11/17 12 :57; Start 06/11/17 at 10:30; Stop 06/11/17 at 10:31; Status DC Filgrastim 300 mcg/Dextrose 25 ml @ 100 mls/hr DAILY@14 IV ; Start 06/15/17 at 09:00 Magnesium Sulfate 4 gm/Dextrose 100 ml @ 25 mls/hr ONCE ONCE IV Last administered on 06/12/17 18:06; Start 06/12/17 at 17:00; Stop 06/12/17 at 20:59; Status DC Potassium Chloride (KCl) 40 meq ONCE ONCE PO Last administered on 06/12/17 18: 05; Start 06/12/17 at 16:00; Stop 06/12/17 at 16:01; Status DC Warfarin Sodium (Coumadin) 4 mg DAILY@1600 PO Last administered on 06/14/17 16: 42; Start 06/14/17 at 16:00 Potassium Chloride (KCl) 40 meq ONCE ONCE PO Last administered on 06/14/17 13: 47; Start 06/14/17 at 13:00; Stop 06/14/17 at 13:01; Status DC Magnesium Sulfate/ Dextrose 100 ml @ 100 mls/hr Q1H IV ; Start 06/15/17 at 10:00 ; Stop 06/15/17 at 11:59 Potassium Chloride (KCl) 40 meq DAILY PO ; Start 06/15/17 at 11:00 Potassium Chloride (KCl) 40 meq ONCE ONCE PO ; Start 06/15/17 at 13:00; Stop 06/15/17 at 13:01 Urinary Catheter: No Vascular Central Line Catheter: Yes Assessment to: Continue Line: Central Venous Catheter Side: Right A/P Problem List: (1) Acute pancreatitis ICD Code: K85.90 - Acute pancreatitis without necrosis or infection, unspecified Status: Resolved (2) Transaminitis ICD Code: R74.0 - Nonspecific elevation of levels of transaminase and lactic acid dehydrogenase [LDH] Status: Acute (3) ALDO (acute kidney injury) ICD Code: N17.9 - Acute kidney failure, unspecified Status: Resolved (4) Pleural effusion ICD Code: J90 - Pleural effusion, not elsewhere classified Status: Acute Assessment and Plan Acute Hypoxic Respiratory Failure Acute Submassive Pulmonary Embolism Right Heart Dysfunction Global severe left ventricular systolic dysfunction Cardiogenic Shock-resolved - 2d echo 05/02: EF 30-35%, RV dysfunction with dilation - Repeat ECHO limited study scheduled on 05/09 - RV function appears to have normalized, question of interatrial shunt for which cardiology consulted, recommendations that once off anticoagulation, would need to be on ASA and require f/u echo periodically for evaluation. Follow. Acute Kidney Injury-resolved. Hypokalemia-replaced. hypomagnesemia- improved. - Likely secondary to cardiogenic shock - HD was discontinued. - s/p vas-cath removal - nephrology has signed off. - BMP reviewed today showing improvement in electrolytes. Hyperphosphatemia-resolved. protein calorie malnutrition- severe ileus-resolved. - [employer] following; recommended alternative form of nutrition - PEG was discussed with the patient which he again declined, he states that his appetite is better now, regular diet with thin liquids. Large Cell B-cell lymphoma Leukopenia Pulmonary Embolism anemia of chronic disease - Hematology/oncology following, Dr. Connelly - Received chemo CHOP regimen. - Started on EPOCH chemotherapy - Continue Coumadin, discontinued Lovenox , monitor INR, 2.1 today 06/13. Follow daily. - Monitor for fevers. C. difficile colitis, resolved: Diarrhea improved. Finished course of Vanco and Flagyl DVT Prophylaxis: Coumadin HYPOKALEMIA AND HYPOMAGNESIA WILL REPLACE BOTH REPEAT AM LABS DW PT AND RN Problem Qualifiers (1) Acute pancreatitis: Kirk Long DO Jun 15, 2017 10:11
[2017-06-15] MEDS: ONDANSETRON HCL 4 MG/2 ML VIAL IV PUSH PRN (11:00)
[2017-06-15] MEDS: DRONABINOL 5 MG CAP PO SCH ×2 (11:00→16:04)
[2017-06-15 11:03] LABS: HEMOGLOBIN A1a 1.4 %; HEMOGLOBIN Ao 84.4 %; HEMOGLOBIN F 1.1 %; HEMOGLOBIN LA1C 2.1 %; HEMOGLOBIN P3 4.3 %
--- NOTE | 2017-06-15 11:36 | PD.ONC.PN ---
Subjective Subjective Remarks Mild nausea, no emesis. Ambulate around the room with PT. No CP/SOB. Objective Data Date Time Temp Pulse Resp B/P (MAP) Pulse Ox O2 Delivery O2 Flow Rate FiO2 06/15/17 08:00 96.4 87 20 133/96 (108) 99 06/15/17 04:23 151/99 (116) 06/15/17 04:19 73 06/15/17 04:00 97.9 89 20 149/105 (120) 97 06/15/17 00:19 78 06/15/17 00:00 98.0 74 18 126/76 (93) 97 06/14/17 21:20 98.1 78 18 118/73 (88) 94 06/14/17 20:04 78 06/14/17 17:33 153/65 (94) 06/14/17 16:15 76 06/14/17 16:00 96.8 61 21 135/90 (105) 99 06/14/17 12:18 96.6 66 20 130/86 (101) 99 06/14/17 11:48 77 06/15/17 06/15/17 06/15/17 07:00 15:00 23:00 Intake Total 120 ml 100 ml Output Total 740 ml Balance -620 ml 100 ml Result Diagram: 06/15/17 0428 06/15/17 0428 Laboratory Results Laboratory Tests Test 06/15/17 04:28 White Blood Count 8.7 TH/MM3 Red Blood Count 3.26 MIL/MM3 Hemoglobin 10.0 GM/DL Hematocrit 29.0 % Mean Corpuscular Volume 89.2 FL Mean Corpuscular Hemoglobin 30.8 PG Mean Corpuscular Hemoglobin Concent 34.5 % Red Cell Distribution Width 16.2 % Platelet Count 312 TH/MM3 Mean Platelet Volume 7.6 FL Neutrophils (%) (Auto) 92.0 % Lymphocytes (%) (Auto) 7.5 % Monocytes (%) (Auto) 0.4 % Eosinophils (%) (Auto) 0.0 % Basophils (%) (Auto) 0.1 % Neutrophils # (Auto) 8.0 TH/MM3 Lymphocytes # (Auto) 0.7 TH/MM3 Monocytes # (Auto) 0.0 TH/MM3 Eosinophils # (Auto) 0.0 TH/MM3 Basophils # (Auto) 0.0 TH/MM3 CBC Comment DIFF FINAL Differential Comment Prothrombin Time 29.3 SEC Prothromb Time International Ratio 2.5 RATIO Blood Urea Nitrogen 12 MG/DL Creatinine 0.54 MG/DL Random Glucose 72 MG/DL Total Protein 5.0 GM/DL Albumin 1.9 GM/DL Calcium Level 6.8 MG/DL Phosphorus Level 1.6 MG/DL Magnesium Level 1.5 MG/DL Alkaline Phosphatase 72 U/L Aspartate Amino Transf (AST/SGOT) 13 U/L Alanine Aminotransferase (ALT/SGPT) 22 U/L Total Bilirubin 0.3 MG/DL Sodium Level 143 MEQ/L Potassium Level 2.9 MEQ/L Chloride Level 107 MEQ/L Carbon Dioxide Level 27.4 MEQ/L Anion Gap 9 MEQ/L Estimat Glomerular Filtration Rate 196 ML/MIN Hemoglobin A1c 5.4 % Protein Corrected Calcium 7.9 MG/DL Free Thyroxine 1.15 NG/DL Thyroid Stimulating Hormone 3rd Gen 15.000 uIU/ML Administered Medications Medications (Trade) Dose Ordered Sig/Shyla Route PRN Reason Start Time Stop Time Status Last Admin Dose Admin Sodium Chloride (NS Flush) 2 ml UNSCH PRN IV FLUSH FLUSH AFTER USING IV ACCESS 04/18/17 17:30 06/06/17 09:18 Nifedipine (Procardia Xl) 90 mg DAILY PO 04/28/17 09:00 06/15/17 08:56 Clonidine (Catapres) 0.1 mg Q6H PRN PO SBP>160, DBP>90 04/27/17 15:00 06/15/17 04:24 Ondansetron HCl (Zofran Inj) 4 mg Q6HR PRN IV PUSH NAUSEA OR VOMITING 04/30/17 11:30 06/15/17 11:00 Promethazine HCl (Phenergan Inj) 25 mg Q6H PRN IM NAUSEA OR VOMITING 04/30/17 11:30 05/01/17 13:27 Acetaminophen/ Hydrocodone Bitart ([place] 5-325 Mg) 1 tab Q6H PRN PO PAIN SCALE 1 TO 10 04/30/17 11:30 06/12/17 23:53 Albuterol/ Ipratropium (Duoneb Neb) 1 ampule Q2HR NEB PRN INH WHEEZING 05/02/17 10:00 05/08/17 08:08 Pantoprazole Sodium (Protonix Inj) 40 mg DAILY IV PUSH 05/07/17 12:00 06/15/17 08:56 Artificial Tears (Lacrilube Opht Oint) 1 applic Q8H EACH EYE 05/07/17 18:00 06/03/17 19:02 Dronabinol (Marinol) 5 mg BID@11,16 PO 05/14/17 16:00 06/15/17 11:00 Allopurinol (Zyloprim) 300 mg DAILY PO 05/28/17 09:00 06/15/17 08:56 Magnesium Oxide (Mag-Ox) 400 mg Q12HR PO 05/28/17 09:00 06/15/17 08:56 Multi-Ingredient Ointment (Eucerin Cream) 1 applic Q6H PRN TOPICAL DRY SKIN 05/31/17 14:00 05/31/17 17:46 Heparin Sodium (Porcine) (Heparin Central Flush) 500 units UNSCH IV FLUSH 06/06/17 20:00 06/06/17 21:17 Sodium Chloride 1,000 ml @ 50 mls/hr Q20H IV 06/09/17 09:00 06/14/17 16:43 Warfarin Sodium (Coumadin) 4 mg DAILY@1600 PO 06/14/17 16:00 06/14/17 16:42 Magnesium Sulfate/ Dextrose 100 ml @ 100 mls/hr Q1H IV 06/15/17 10:00 06/15/17 11:59 06/15/17 11:01 Objective Remarks GENERAL: Well-nourished, well-developed patient. SKIN: Warm and dry. HEAD: Normocephalic. EYES: No scleral icterus. No injection or drainage. NECK: Supple, trachea midline. No JVD or lymphadenopathy. LYMPHATIC: No adenopathy. Right supraclav and left axillary masses are smaller and softer. CARDIOVASCULAR: Regular rate and rhythm without murmurs. RESPIRATORY: Breath sounds equal bilaterally. No accessory muscle use. GASTROINTESTINAL: Abdomen soft, non-tender, nondistended. EXTREMITIES: No cyanosis, or edema. MUSCULOSKELETAL: Adequate muscle tone. NEUROLOGICAL: No obvious focal deficit. Awake, alert, and oriented x3. PSYCHIATRIC: Appropriate mood and affect; insight and judgment normal. 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 --Received Rituxan x1. --05/18-->CHOP chemotherapy -- R-EPOCH chemotherapy completed on 06/14 -- Start neupogen 06/15 (2) Pulmonary emboli ICD Codes: I26.99 - Other pulmonary embolism without acute cor pulmonale Status: Resolved Plan: --On coumadin, INR therapeutic --CTA showed large PE --s/p tpa therapy on 7.2 --INR daily Assessment 47y/o male admitted with pancreatitis, found to have NHL. Have some response to R_CHOP but the masses seems more prominent again worrisome for progression of disease. Plan 1. start Neupogen today 2. monitor CBC, CMP 3. continue coumadin. 4. Anticipate d/c home in 1 - 2 days and continue neupogen outpatient Problem Qualifiers (1) Non-Hodgkin lymphoma: Ruslan Connelly MD Jun 15, 2017 11:36
[2017-06-15] MEDS: CALCIUM CARBONATE 1.25 GM (CA 500 MG) TAB PO SCH ×2 (11:45→21:57)
[2017-06-15] MEDS: POTASSIUM CHLORIDE 10 MEQ CONTROLLED RELEASE TAB PO SCH (11:46)
[2017-06-15] MEDS ORDERED: POTASSIUM CHLORIDE 10 MEQ CONTROLLED RELEASE TAB PO ONE (13:00)
[2017-06-15] MEDS: WARFARIN SOD 4 MG TAB PO SCH (16:04)
[2017-06-15] MEDS: SODIUM CHLOR 0.9% 1000 ML INJ 1,000 ML IV SCH (16:05)
[2017-06-16] VITALS (10 sets, daily range): BP systolic 125–142; BP diastolic 69–85; PULSE 70–90; RESP 17–18; TEMP 96.8–98; O2SAT 99–100
[2017-06-16] MEDS: ARTIFICIAL TEARS OPTH OINT 3.5 APPLIC/3.5 GM TUBO EACH EYE SCH ×3 (02:00→17:16)
[2017-06-16 06:27] LABS: AUTOMATED NEUTROPHIL # 19.6 TH/MM3 (1.8-7.7); EOSINOPHIL # 0.1 TH/MM3 (0-0.4); EOSINOPHIL % 0.4 % (0.0-4.0); HEMATOCRIT 25.9 % (39.0-51.0); HEMO FLAGS DIFF FINAL; LYMPH % 2.8 % (9.0-44.0); LYMPHOCYTE # 0.6 TH/MM3 (1.0-4.8); MEAN CELL VOLUME 89.5 FL (80.0-100.0); MEAN CORPUSCULAR HEMOGLOBIN 29.6 PG (27.0-34.0); MEAN CORPUSCULAR HGB CONC 33.1 % (32.0-36.0); MONO % 0.3 % (0.0-8.0); NEUT % 96.5 % (16.0-70.0); PLATELET COUNT 283 TH/MM3 (150-450); RED BLOOD COUNT 2.89 MIL/MM3 (4.50-5.90); RED CELL DISTRIBUTION WIDTH 16.5 % (11.6-17.2); WHITE BLOOD COUNT 20.3 TH/MM3 (4.0-11.0)
[2017-06-16 06:41] LABS: PROTHROMBIN TIME - PATIENT 22.9 SEC (9.8-11.6)
[2017-06-16 07:12] LABS: BICARBONATE 26.8 MEQ/L (21.0-32.0); CALCIUM-PROTEIN CORRECTED 8.7 MG/DL (8.5-10.1); POTASSIUM 3.6 MEQ/L (3.5-5.1); TOTAL BILIRUBIN ADULT 0.4 MG/DL (0.2-1.0)
[2017-06-16] MEDS: ALLOPURINOL 300 MG TAB PO SCH (09:05)
[2017-06-16] MEDS: CALCIUM CARBONATE 1.25 GM (CA 500 MG) TAB PO SCH (09:05)
[2017-06-16] MEDS: MAGNESIUM OXIDE 400 MG TAB PO SCH (09:05)
[2017-06-16] MEDS: NIFEdipine 90 MG SUSTAINED RELEASE TAB PO SCH (09:05)
[2017-06-16] MEDS: PANTOPRAZOLE SODIUM 40 MG VIAL IV PUSH SCH (09:06)
[2017-06-16] MEDS: POTASSIUM CHLORIDE 10 MEQ CONTROLLED RELEASE TAB PO SCH (09:06)
[2017-06-16] MEDS ORDERED: POTASSIUM PHOSPHATE MONOBASIC 500 MG TAB PO SCH (10:00)
[2017-06-16] MEDS ORDERED: VENTAER INH (10:08)
[2017-06-16] MEDS ORDERED: ARTI3.5O EACH EYE (10:08)
[2017-06-16] MEDS ORDERED: COMMODE 3-IN-11 MIS (10:08)
[2017-06-16] MEDS ORDERED: WALKER WHEELS/F1 MIS (10:08)
[2017-06-16] MEDS ORDERED: COUM4TAB PO (10:08)
[2017-06-16] MEDS ORDERED: HYDR-3516 PO (10:08)
[2017-06-16] MEDS ORDERED: MAGN400T3 PO (10:08)
[2017-06-16] MEDS ORDERED: POTA-243 PO (10:08)
[2017-06-16] MEDS ORDERED: CALC500T30 PO (10:08)
[2017-06-16] MEDS ORDERED: PROT40TA PO (10:08)
--- NOTE | 2017-06-16 10:17 | HHI.PR ---
Subjective Remarks Follow up Non-Hodgkins lymphoma and PE. Patient seen and examined today. Lying in bed comfortably. Denies any new acute complaints overnight. Slept well. Denies any recent fever, chills, cough, shortness of breath, ab pain, n/v/d or dysuria. 06-14 he states, he is eating okay. Abdomen bowel movements. A.m. labs Monitor INRs Physical therapy and occupational therapy Case management for discharge planning 06-15 HYPOKALEMIA- HYPOMAGNESIA WILL REPLACE WORKED WITH PT AND OT DW RN AND PT 06-16 HAS BEEN CLEARED BY ONCOLOGY CAN BE DCED TO HOME TODAY DW ONCOLOGY DW RN AND PT Objective Vitals Vital Signs Date Time Temp Pulse Resp B/P (MAP) Pulse Ox O2 Delivery O2 Flow Rate FiO2 06/16/17 04:14 75 06/16/17 04:00 98.0 76 17 133/83 (100) 99 06/16/17 00:14 79 06/16/17 00:00 97.5 75 18 125/69 (87) 99 06/15/17 20:00 80 06/15/17 20:00 97.4 87 18 115/79 (91) 100 06/15/17 16:32 80 06/15/17 16:32 98.3 79 20 103/67 (79) 99 06/15/17 12:18 96.6 78 20 108/70 (83) 99 06/15/17 12:01 80 I/O 06/15/17 06/15/17 06/15/17 06/16/17 06/16/17 06/16/17 07:00 15:00 23:00 07:00 15:00 23:00 Intake Total 120 ml 700 ml 125 ml Output Total 740 ml 350 ml 400 ml Balance -620 ml 700 ml -225 ml -400 ml Intake Oral 120 ml IV Total 700 ml 125 ml Output Urine Total 740 ml 350 ml 400 ml # Voids 1 # Bowel Movements 1 Result Diagram: 06/16/17 0545 06/16/17 0545 Other Results Laboratory Tests Test 06/14/17 05:22 06/15/17 04:28 06/16/17 05:45 White Blood Count 4.8 TH/MM3 8.7 TH/MM3 20.3 TH/MM3 Red Blood Count 3.39 MIL/MM3 3.26 MIL/MM3 2.89 MIL/MM3 Hemoglobin 10.2 GM/DL 10.0 GM/DL 8.5 GM/DL Hematocrit 30.3 % 29.0 % 25.9 % Mean Corpuscular Volume 89.5 FL 89.2 FL 89.5 FL Mean Corpuscular Hemoglobin 30.1 PG 30.8 PG 29.6 PG Mean Corpuscular Hemoglobin Concent 33.6 % 34.5 % 33.1 % Red Cell Distribution Width 16.4 % 16.2 % 16.5 % Platelet Count 363 TH/MM3 312 TH/MM3 283 TH/MM3 Mean Platelet Volume 7.1 FL 7.6 FL 7.3 FL Neutrophils (%) (Auto) 95.5 % 92.0 % 96.5 % Lymphocytes (%) (Auto) 3.4 % 7.5 % 2.8 % Monocytes (%) (Auto) 1.1 % 0.4 % 0.3 % Eosinophils (%) (Auto) 0.0 % 0.0 % 0.4 % Basophils (%) (Auto) 0.0 % 0.1 % 0.0 % Neutrophils # (Auto) 4.6 TH/MM3 8.0 TH/MM3 19.6 TH/MM3 Lymphocytes # (Auto) 0.2 TH/MM3 0.7 TH/MM3 0.6 TH/MM3 Monocytes # (Auto) 0.1 TH/MM3 0.0 TH/MM3 0.1 TH/MM3 Eosinophils # (Auto) 0.0 TH/MM3 0.0 TH/MM3 0.1 TH/MM3 Basophils # (Auto) 0.0 TH/MM3 0.0 TH/MM3 0.0 TH/MM3 CBC Comment DIFF FINAL DIFF FINAL DIFF FINAL Differential Comment Prothrombin Time 30.1 SEC 29.3 SEC 22.9 SEC Prothromb Time International Ratio 2.6 RATIO 2.5 RATIO 2.0 RATIO Blood Urea Nitrogen 13 MG/DL 12 MG/DL 8 MG/DL Creatinine 0.53 MG/DL 0.54 MG/DL 0.47 MG/DL Random Glucose 115 MG/DL 72 MG/DL 78 MG/DL Total Protein 5.4 GM/DL 5.0 GM/DL 4.7 GM/DL Albumin 2.0 GM/DL 1.9 GM/DL 1.8 GM/DL Calcium Level 7.1 MG/DL 6.8 MG/DL 7.3 MG/DL Magnesium Level 1.5 MG/DL 1.5 MG/DL Alkaline Phosphatase 76 U/L 72 U/L 80 U/L Aspartate Amino Transf (AST/SGOT) 15 U/L 13 U/L 8 U/L Alanine Aminotransferase (ALT/SGPT) 19 U/L 22 U/L 17 U/L Total Bilirubin 0.3 MG/DL 0.3 MG/DL 0.4 MG/DL Sodium Level 138 MEQ/L 143 MEQ/L 139 MEQ/L Potassium Level 3.2 MEQ/L 2.9 MEQ/L 3.6 MEQ/L Chloride Level 103 MEQ/L 107 MEQ/L 107 MEQ/L Carbon Dioxide Level 28.3 MEQ/L 27.4 MEQ/L 26.8 MEQ/L Anion Gap 7 MEQ/L 9 MEQ/L 5 MEQ/L Estimat Glomerular Filtration Rate 200 ML/MIN 196 ML/MIN 230 ML/MIN Protein Corrected Calcium 8.0 MG/DL 7.9 MG/DL 8.7 MG/DL Phosphorus Level 1.6 MG/DL Hemoglobin A1c 5.4 % Free Thyroxine 1.15 NG/DL Thyroid Stimulating Hormone 3rd Gen 15.000 uIU/ML Imaging Last Impressions Chest X-Ray 06/10/17 0000 Signed Impressions: Service Date/Time: Saturday, June 10, 2017 13:04 - CONCLUSION: Basilar infiltrates and effusions. Right paratracheal mass Tacos Garcia MD Abdomen X-Ray 05/15/17 0600 Signed Impressions: Service Date/Time: Monday, May 15, 2017 04:29 - CONCLUSION: Findings of mild small bowel ileus. There has been no significant change when compared to the prior exam. Jadon Carroll MD Central Venous Line 05/15/17 0000 Signed Impressions: Service Date/Time: Monday, May 15, 2017 00:00 - CONCLUSION: Uncomplicated catheter removal. Bryon Calero Jr., MD Catheter Placement X-Ray 05/15/17 0000 Signed Impressions: Service Date/Time: Monday, May 15, 2017 15:13 - CONCLUSION: Mild narrowing involving the brachiocephalic vein near its junction with the SVC. This is not flow limiting. A left-sided vas catheter was placed. Bryon Calero Jr., MD Abdomen/Pelvis CT 05/09/17 0000 Signed Impressions: Service Date/Time: Tuesday, May 09, 2017 21:16 - CONCLUSION: 1. Diffusely distended loops of small bowel down to the cecum suggest ileus. 2. Evidence of mesenteric and retroperitoneal adenopathy. 3. Large bilateral pleural effusions , moderate amount of free fluid in the pelvis and mild ascites in the upper abdomen. 4. Abnormal appearance to the parenchyma of the right kidney with patchy areas of hyperdensity in a mosaic pattern. This of uncertain significance. The patient had iodinated contrast for a CT pulmonary angiogram 7 days ago; this could potentially represent residual parenchymal contrast which would be nonspecific, but raises the possibility of either obstruction or renal infarctions. Bryno Evans MD Renal Ultrasound 05/05/17 Signed Impressions: Service Date/Time: Friday, May 05, 2017 20:06 - CONCLUSION: 1. Kidneys are borderline echogenic which can be seen with medical renal disease. 2. No evidence of hydronephrosis. 3. Abdominal ascites. 4. Multiple dilated bowel loops. 5. Bilateral pleural effusions. Tray Patel MD Head CT 05/03/17 Signed Impressions: Service Date/Time: Wednesday, May 03, 2017 17:22 - CONCLUSION: No acute intracranial disease. No hemorrhage seen. Tray Patel MD CT Angiography 05/02/17 Signed Impressions: Service Date/Time: Tuesday, May 02, 2017 11:10 - CONCLUSION: 1. There is pulmonary embolus in the right pulmonary artery, right upper lobe and lower lobe branches. 2. Resorption of previously seen gas in the left axilla with fluid collection at this site with postprocedural change and possibly postprocedural hemorrhage not significantly changed in size. 3. Interval development of right lung airspace process may represent postobstructive pneumonia and there is mucus within the trachea not present yesterday. 4. Right pleural effusion is smaller and left pleural effusion is larger. 5. No change in bulky adenopathy. Leonor Chavez MD Upper Extremity Ultrasound 04/30/17 Signed Impressions: Service Date/Time: April 12:25 - CONCLUSION: There some superficial thrombosis of a vein in the forearm. The deep venous system is patent. Large fluid collection left axilla. Significant soft tissue edema throughout the upper arm. Rinku Hillman MD Thoracentesis Ultrasound 7/20/17 0000 Signed Impressions: Service Date/Time: April 12:14 - CONCLUSION: Uncomplicated ultrasound guided thoracentesis. Tray Patel MD Port Line Insertion 04/27/17 Signed Impressions: Service Date/Time: Thursday, April 27, 2017 14:56 - CONCLUSION: 1. Bulky bilateral lower cervical lymphadenopathy. 2. Uncomplicated ultrasound and fluoroscopic guided implanted central venous port catheter placement as described in detail above. An 8 [employer] port was placed. Liang Peralta MD Bone Biopsy CT 04/27/17 0000 Signed Impressions: Service Date/Time: Thursday, April 27, 2017 16:22 - CONCLUSION: 1. Uncomplicated CT guided bone marrow aspirate. 2. Uncomplicated CT guided bone marrow biopsy. Tray Patel MD Chest CT 04/25/17 0000 Signed Impressions: Service Date/Time: Wednesday, April 26, 2017 19:00 - CONCLUSION: The right pleural effusion is slightly larger on the left side has not changed. Extensive bulky adenopathy as before and malignancies such as lymphoma is suspected. Leonor Chavez MD Gall Bladder Ultrasound 04/22/17 0000 Signed Impressions: Service Date/Time: Saturday, April 22, 2017 07:35 - CONCLUSION: Small liver with focal abdomen only incompletely evaluated. Large right pleural effusion. effusion. Kirk Briceño MD FACR Abdomen CT 04/20/17 Signed Impressions: Service Date/Time: Thursday, April 20, 2017 19:40 - CONCLUSION: Limited exam because of lack of intravenous contrast. Lymphoma is suspected. Pathological diagnosis could be obtained with ultrasound biopsy of the cervical, axillary or inguinal adenopathy. Kirk Briceño MD FACR Objective Remarks GENERAL: This is a well-nourished, well-developed patient, in no apparent distress. SKIN: No rashes, warm and dry HEAD: Atraumatic. Normocephalic. EYES: Pupils equal round and reactive. Extraocular motions intact. No scleral icterus. ENT: Nose without bleeding, or drainage, Airway patent. Tongue is midline ORAL mucosa is moist NECK: Trachea midline. Supple no obvious JVD CARDIOVASCULAR: Regular rate and rhythm without murmurs, gallops, or rubs. S1- S2 no S3 or S4 no heave or thrill RESPIRATORY: Fair air entry bilaterally. No wheezes, rales, or rhonchi. GASTROINTESTINAL: Abdomen soft, non-tender, nondistended. Positive bowel sounds x 4 q. MUSCULOSKELETAL: Extremities without clubbing, cyanosis, or edema. DP and Pedal pulses appreciated NEUROLOGICAL: Awake and alert. Moves all extremity. Normal speech. no focal neurological deficit Insight and judgment are good Mood and behavior appropriate Procedures 04/[address] excision biopsy 04/27- port placement 05/02-TPA 05/06-left IJ Vas-Cath placement endotracheal intubation Medications and IVs Current Medications Ondansetron HCl (Zofran Inj) 4 mg ONCE ONCE IVP Last administered on 04/18/17 17:38; Start 04/18/17 at 17:30; Stop 04/18/17 at 17:31; Status DC Sodium Chloride 1,000 ml @ 1,000 mls/hr Q1H IV Last administered on 04/18/17 17:38; Start 04/18/17 at 17:16; Stop 04/18/17 at 18:15; Status DC Sodium Chloride (NS Flush) 2 ml UNSCH PRN IV FLUSH FLUSH AFTER USING IV ACCESS Last administered on 06/06/17 09:18; Start 04/18/17 at 17:30 Sodium Chloride 1,000 ml @ 1,000 mls/hr Q1H IV Last administered on 04/18/17 18:40; Start 04/18/17 at 18:37; Stop 04/18/17 at 19:36; Status DC Potassium Chloride 100 ml @ 50 mls/hr Q2H IV Last administered on 04/18/17 22: 12; Start 04/18/17 at 19:00; Stop 04/18/17 at 22:59; Status DC Ondansetron HCl (Zofran Inj) 4 mg Q6H PRN IVP NAUSEA OR VOMITING Last administered on 04/26/17 06:04; Start 04/18/17 at 19:30; Stop 04/26/17 at 13:02 ; Status DC Morphine Sulfate (Morphine Inj) 2 mg Q3H PRN IV Pain 3-5; if unable to take PO ; Start 04/18/17 at 19:30; Status Cancel Morphine Sulfate (Morphine Inj) 4 mg Q3H PRN IV Pain 6-10;if unable to take PO ; Start 04/18/17 at 19:30; Status Cancel Naloxone HCl (Narcan Inj) 0.4 mg UNSCH PRN IV SEE LABEL COMMENTS; Start at 19:30 Senna/Docusate Sodium (Porsha-Colace) 1 tab BID PO Last administered on 07:52; Start 04/18/17 at 21:00; Stop 05/13/17 at 17:16; Status DC Magnesium Hydroxide (Milk Of Magnesia Liq) 30 ml Q12H PRN PO MILD - MODERATE CONSTIPATION Last administered on 05/09/17 08:01; Start 04/18/17 at 19:30; Stop 05/13/17 at 17:16; Status DC Sennosides (Senokot) 17.2 mg Q12H PRN PO MODERATE - SEVERE CONSTIPATION; Start 04/18/17 at 19:30; Stop 05/13/17 at 17:16; Status DC Bisacodyl (Dulcolax Supp) 10 mg DAILY PRN RECTAL SEVERE CONSITIPATION; Start at 19:30; Stop 05/13/17 at 17:16; Status DC Lactulose (Lactulose Liq) 30 ml DAILY PRN PO SEVERE CONSITIPATION; Start at 19:30; Stop 05/13/17 at 17:16; Status DC Potassium Chloride/Sodium Chloride 1,000 ml @ 125 mls/hr Q8H IV ; Start at 21:00; Stop 04/18/17 at 21:00; Status DC Potassium Chloride/Sodium Chloride 1,000 ml @ 83 mls/hr Q12H3M IV Last administered on 04/23/17 01:19; Start 04/19/17 at 02:00; Stop 04/23/17 at 09:04 ; Status DC Sodium Chloride 1,000 ml @ 125 mls/hr Q8H IV Last administered on 04/18/17 20: 00; Start 04/18/17 at 20:00; Stop 04/19/17 at 16:01; Status DC Pneumococcal Polyvalent Vaccine (Pneumovax-23 Inj) 25 mcg ONCE ONCE IM Last administered on 04/19/17 11:20; Start 04/19/17 at 09:00; Stop 04/19/17 at 09:01; Status DC Ceftriaxone Sodium 1000 mg/ Sodium Chloride 100 ml @ 200 mls/hr Q24H IV Last administered on 04/24/17 12:51; Start 04/19/17 at 13:00; Stop 04/24/17 at 14:33 ; Status DC Heparin Sodium (Porcine) (Heparin Inj) 5,000 units Q8HR SQ Last administered on 05/02/17 12:46; Start 04/19/17 at 14:00; Stop 05/19/17 at 10:23; Status DC Azithromycin (Zithromax) 500 mg Q24H PO Last administered on 04/24/17 12:51; Start 04/19/17 at 13:00; Stop 04/24/17 at 14:33; Status DC Clonidine (Catapres) 0.1 mg ONCE ONCE PO Last administered on 04/20/17 22:16 ; Start 04/20/17 at 21:45; Stop 04/20/17 at 21:46; Status DC Nifedipine (Procardia Xl) 30 mg DAILY PO Last administered on 04/25/17 09:42; Start 04/21/17 at 17:00; Stop 04/25/17 at 13:12; Status DC Hydralazine HCl (Apresoline Inj) 10 mg Q6HR PRN IV PUSH SBP>160, DBP>90 Last administered on 04/27/17 10:15; Start 04/21/17 at 17:00; Stop 06/05/17 at 10:42 ; Status DC Cefazolin Sodium 1000 mg/Sodium Chloride 100 ml @ 200 mls/hr [employer] IV ; Start 04/21/17 at 21:30; Stop 04/24/17 at 21:29; Status DC Midazolam HCl (Versed Inj) 2 mg STK-MED ONCE .ROUTE Last administered on 09:02; Start 04/22/17 at 09:02; Stop 04/22/17 at 09:03; Status DC Bupivacaine HCl/ Epinephrine Bitart (Sensorcaine-Epi 0.5% 50 ml Inj) 50 ml STK- MED ONCE INFIL ; Start 04/22/17 at 09:25; Stop 04/22/17 at 09:26; Status Cancel Albuterol Sulfate (*ALBUTEROL NEB PERIprocedure ONLY) 2.5 mg STK-MED ONCE NEB Last administered on 04/22/17 10:06; Start 04/22/17 at 10:06; Stop 04/22/17 at 10:07; Status DC Fentanyl Citrate (fentaNYL INJ) 200 mcg STK-MED ONCE .ROUTE ; Start 04/22/17 at 10:10; Stop 04/22/17 at 10:11; Status DC Bupivacaine HCl (Marcaine Pf 0.5% Inj) 30 ml STK-MED ONCE INFIL Last administered on 04/22/17 09:25; Start 04/22/17 at 09:25; Stop 04/22/17 at 10:49 ; Status DC Miscellaneous Information ALL NURSING DEPARTME... UNSCH PRN .XX SEE LABEL COMMENTS; Start 04/22/17 at 10:01; Stop 04/23/17 at 10:00; Status DC Dextrose/Sodium Chloride 1,000 ml @ 60 mls/hr [id number] IV Last administered on 04/24/17 06:40; Start 04/23/17 at 12:45; Stop 04/24/17 at 14:36; Status DC Potassium Chloride 30 meq/ Dextrose/Sodium Chloride 1,015 ml @ 70 mls/hr [id number] IV Last administered on 04/25/17 05:34; Start 04/24/17 at 16:00; Stop 04/25/17 at 13:12; Status DC Promethazine HCl (Phenergan Inj) 25 mg ONCE ONCE IM Last administered on 11:55; Start 04/25/17 at 08:00; Stop 04/25/17 at 08:01; Status DC Nifedipine (Procardia Xl) 60 mg DAILY PO Last administered on 04/27/17 10:02; Start 04/26/17 at 09:00; Stop 04/27/17 at 14:48; Status DC Potassium Chloride 30 meq/ Dextrose/Sodium Chloride 1,015 ml @ 60 mls/hr [id number] IV Last administered on 04/27/17 18:18; Start 04/25/17 at 15:00; Stop 04/28/17 at 11:49; Status DC Promethazine HCl (Phenergan Inj) 12.5 mg Q8H PRN IM PERSISTENT NAUSEA Last administered on 04/30/17 04:34; Start 04/26/17 at 13:15; Stop 04/30/17 at 11:28 ; Status DC Allopurinol (Zyloprim) 300 mg DAILY PO Last administered on 05/05/17 08:12; Start 04/27/17 at 09:00; Stop 05/05/17 at 12:10; Status DC Vancomycin HCl 1000 mg/Sodium Chloride 250 ml @ 250 mls/hr [employer] IV Last administered on 04/27/17 13:49; Start 04/27/17 at 10:00; Stop 04/30/17 at 09:59 ; Status DC Cefazolin Sodium/ Dextrose 50 ml @ 100 mls/hr [employer] IV Last administered on 04/27/17 15:42; Start 04/27/17 at 10:00; Stop 04/30/17 at 09:59; Status DC Nifedipine (Procardia Xl) 90 mg DAILY PO Last administered on 06/16/17 09:05; Start 04/28/17 at 09:00 Clonidine (Catapres) 0.1 mg Q12HR PO ; Start 04/27/17 at 21:00; Status UNV Clonidine (Catapres) 0.1 mg Q6H PRN PO SBP>160, DBP>90 Last administered on 06/15 04:24; Start 04/27/17 at 15:00 Heparin Sodium (Porcine) (*HEPARIN CENTRAL FLUSH PERIprocedural ONLY) 500 units STK-MED ONCE IV FLUSH Last administered on 04/27/17 14:51; Start 04/27/17 at 14:51; Stop 04/27/17 at 14:52; Status DC Lidocaine/ Epinephrine (Xylocaine-Epi 1%-1:100,000 Inj) 20 ml STK-MED ONCE .ROUTE Last administered on 04/27/17 14:51; Start 04/27/17 at 14:51; Stop at 14:52; Status DC Midazolam HCl (Versed Inj) 5 mg STK-MED ONCE .ROUTE Last administered on 14:52; Start 04/27/17 at 14:52; Stop 04/27/17 at 14:53; Status DC Fentanyl Citrate (fentaNYL INJ) 250 mcg STK-MED ONCE .ROUTE Last administered on 04/27/17 14:53; Start 04/27/17 at 14:53; Stop 04/27/17 at 14:54; Status DC Sodium Chloride 1,000 ml @ 100 mls/hr Q10H IV Last administered on 04/29/17 17:55; Start 04/29/17 at 15:00; Stop 04/30/17 at 00:59; Status DC Acetaminophen (Tylenol) 650 mg ONCE ONCE PO Last administered on 04/30/17 16: 44; Start 04/30/17 at 13:00; Stop 04/30/17 at 13:01; Status DC Diphenhydramine HCl (Benadryl) 50 mg ONCE ONCE PO Last administered on 16:43; Start 04/30/17 at 13:00; Stop 04/30/17 at 13:01; Status DC Rituximab 716.25 mg/Sodium Chloride 571.625 ml @ 0 mls/hr ONCE ONCE IV Last administered on 05/01/17 13:15; Start 04/30/17 at 14:00; Stop 04/30/17 at 14:01 ; Status DC Prednisone (Deltasone) 115 mg Q12H PO ; Start 04/30/17 at 13:00; Stop 05/01/17 at 11:21; Status DC Dexamethasone Sodium Phosphate 20 mg/Granisetron HCl 1 mg/Sodium Chloride 56 ml @ 224 mls/hr Q24H IV ; Start 04/30/17 at 15:00; Stop 05/01/17 at 11:26; Status DC Potassium Chloride 100 ml @ 50 mls/hr BOLUS ONCE IV Last administered on 04/30 10:20; Start 04/30/17 at 10:00; Stop 04/30/17 at 11:59; Status DC Etoposide 95.5 mg/ Doxorubicin HCl 19.1 mg/ Vincristine Sulfate 0.764 mg/ Sodium Chloride 515.089 ml @ 21.462 mls/hr Q24H IV ; Start 04/30/17 at 15:00; Stop 05/18/17 at 13:46; Status DC Cyclophosphamide 1432.5 mg/Sodium Chloride 500 ml @ 500 mls/hr ONCE ONCE IV ; Start 05/04/17 at 14:00; Stop 05/04/17 at 14:59; Status DC Ondansetron HCl (Zofran Inj) 4 mg Q6HR PRN IV PUSH NAUSEA OR VOMITING Last administered on 06/15/17 11:00; Start 04/30/17 at 11:30 Promethazine HCl (Phenergan Inj) 25 mg Q6H PRN IM NAUSEA OR VOMITING Last administered on 05/01/17 13:27; Start 04/30/17 at 11:30 Acetaminophen/ Hydrocodone Bitart (Pe Ell 5-325 Mg) 1 tab Q6H PRN PO PAIN SCALE 1 TO 10 Last administered on 06/12/17 23:53; Start 04/30/17 at 11:30 Albuterol/ Ipratropium (Duoneb Neb) 1 ampule ONCE ONCE NEB Last administered on 04/30/17 20:16; Start 04/30/17 at 19:45; Stop 04/30/17 at 20:11; Status DC Albuterol/ Ipratropium (Duoneb Neb) 1 ampule Q2HR NEB PRN NEB sob, wheeze; Start 04/30/17 at 20:45; Stop 05/02/17 at 10:14; Status DC Morphine Sulfate (Morphine Inj) 2 mg ONCE ONCE IV PUSH Last administered on 23:36; Start 04/30/17 at 23:30; Stop 04/30/17 at 23:31; Status DC Furosemide (Lasix Inj) 10 mg ONCE ONCE IV PUSH Last administered on 05/01/17 01:01; Start 05/01/17 at 00:00; Stop 05/01/17 at 00:01; Status DC Furosemide (Lasix Inj) 20 mg ONCE ONCE IV PUSH Last administered on 05/01/17 09:09; Start 05/01/17 at 07:45; Stop 05/01/17 at 07:52; Status DC Acetaminophen (Tylenol) 650 mg NOW ONCE PO Last administered on 05/01/17 10: 51; Start 05/01/17 at 10:45; Stop 05/01/17 at 10:46; Status DC Diphenhydramine HCl (Benadryl) 50 mg NOW ONCE PO Last administered on 10:51; Start 05/01/17 at 10:45; Stop 05/01/17 at 10:46; Status DC Rituximab 716.25 mg/Sodium Chloride 571.625 ml @ 0 mls/hr ONCE ONCE IV ; Start 05/01/17 at 12:00; Stop 05/01/17 at 12:01; Status DC Acetaminophen (Tylenol) 650 mg ONCE ONCE PO ; Start 05/01/17 at 11:30; Stop at 11:31; Status DC Diphenhydramine HCl (Benadryl) 50 mg ONCE ONCE PO ; Start 05/01/17 at 11:30; Stop 05/01/17 at 11:31; Status DC Prednisone (Deltasone) 115 mg Q12HR PO Last administered on 05/02/17 20:08; Start 05/01/17 at 11:00; Stop 05/05/17 at 21:01; Status DC Dexamethasone Sodium Phosphate 20 mg/Granisetron HCl 1 mg/Sodium Chloride 56 ml @ 224 mls/hr Q24H IV ; Start 05/01/17 at 11:30; Stop 05/06/17 at 11:44; Status DC Metoclopramide HCl (Reglan Inj) 10 mg Q8HR IV PUSH Last administered on 04:59; Start 05/01/17 at 15:30; Stop 05/09/17 at 19:03; Status DC Pantoprazole Sodium (Protonix) 40 mg DAILY PO Last administered on 05/06/17 08 :17; Start 05/01/17 at 16:00; Stop 05/07/17 at 11:49; Status DC Furosemide (Lasix Inj) 20 mg ONCE ONCE IV PUSH Last administered on 05/01/17 16:14; Start 05/01/17 at 15:30; Stop 05/01/17 at 15:31; Status DC Albuterol/ Ipratropium (Duoneb Neb) 1 ampule BID NEB INH Last administered on 05/02/17 07:47; Start 05/01/17 at 20:00; Stop 05/02/17 at 10:18; Status DC Furosemide (Lasix Inj) 20 mg STAT ONCE IV PUSH Last administered on 05/02/17 08:40; Start 05/02/17 at 08:30; Stop 05/02/17 at 08:37; Status DC Etomidate (Amidate Inj) 20 mg STK-MED ONCE .ROUTE Last administered on 12:48; Start 05/02/17 at 09:23; Stop 05/02/17 at 09:24; Status DC Dextrose (D50w (Vial) Inj) 25 ml UNSCH PRN IV PUSH HYPOGLYCEMIA-SEE COMMENTS; Start 05/02/17 at 10:00; Stop 05/16/17 at 08:09; Status DC Insulin Human Regular (NovoLIN R SUPPLEMENTAL SCALE) 1 Q6HR SQ Last administered on 05/04/17t 18:00; Start 05/02/17 at 12:00; Stop 05/16/17 at 08:09 ; Status DC Chlorhexidine Gluconate (Peridex 0.12% Liq) 15 ml BID@08,20 MT Last administered on 06/02/17t 09:27; Start 05/02/17 at 20:00; Stop 06/05/17 at 10:42 ; Status DC Magnesium Oxide (Mag-Ox) 800 mg UNSCH PRN PO For Magnesium 1.2 - 1.6 mg/dL; Start 05/02/17 at 10:00; Stop 05/03/17 at 13:51; Status DC Magnesium Sulfate 4 gm/Sodium Chloride 100 ml @ 50 mls/hr UNSCH PRN IV For Magnesium 0.9 - 1.1 mg/dL; Start 05/02/17 at 10:00; Stop 05/03/17 at 13:51; Status DC Magnesium Sulfate 2 gm/Sodium Chloride 100 ml @ 50 mls/hr UNSCH PRN IV For Magnesium 1.2 - 1.6 mg/dL; Start 05/02/17 at 10:00; Stop 05/03/17 at 13:51; Status DC Potassium Chloride 100 ml @ 50 mls/hr Q2H PRN IV For Potassium 2.8 - 3.2 mEq/L ; Start 05/02/17 at 10:00; Stop 05/03/17 at 13:51; Status DC Potassium Chloride 100 ml @ 50 mls/hr Q2H PRN IV For Potassium 3.3 - 3.5 mEq/L ; Start 05/02/17 at 10:00; Stop 05/03/17 at 13:51; Status DC Potassium Chloride 100 ml @ 50 mls/hr Q2H PRN IV For Potassium 2.8 - 3.2 mEq/L ; Start 05/02/17 at 10:00; Stop 05/03/17 at 13:51; Status DC Potassium Chloride 100 ml @ 25 mls/hr UNSCH PRN IV For Potassium 3.3 - 3.5 mEq /L; Start 05/02/17 at 10:00; Stop 05/03/17 at 13:51; Status DC Potassium Phosphate (K-Phos) 2,000 mg Q4H PRN PO For Phosphorus < 2.5 mg/dL; Start 05/02/17 at 10:00; Stop 05/03/17 at 13:51; Status DC Potassium Phosphate (K-Phos) 2,000 mg UNSCH PRN PO/TUBE SEE LABEL COMMENTS; Start 05/02/17 at 10:00; Stop 05/03/17 at 13:51; Status DC Potassium Phosphate 30 mmol/ Sodium Chloride 260 ml @ 42 mls/hr UNSCH PRN IV SEE LABEL COMMENTS; Start 05/02/17 at 10:00; Stop 05/03/17 at 13:52; Status DC Sodium Phosphate 30 mmol/Sodium Chloride 250 ml @ 42 mls/hr UNSCH PRN IV For Phosphorus < 2.5 mg/dL; Start 05/02/17 at 10:00; Stop 05/03/17 at 13:52; Status DC Albuterol/ Ipratropium (Duoneb Neb) 1 ampule Q6HR NEB INH Last administered on 05/06/17 03:23; Start 05/02/17 at 10:00; Stop 05/06/17 at 10:00; Status DC Albuterol/ Ipratropium (Duoneb Neb) 1 ampule Q2HR NEB PRN INH WHEEZING Last administered on 05/08/17 08:08; Start 05/02/17 at 10:00 Fentanyl Citrate 250 ml @ 0 mls/hr TITRATE IV Last administered on 05/10/17 05 :36; Start 05/02/17 at 10:00; Stop 06/03/17 at 12:04; Status DC Propofol 100 ml @ 0 mls/hr TITRATE IV Last administered on 05/10/17 06:54; Start 05/02/17 at 10:00; Stop 06/03/17 at 12:04; Status DC Iohexol (Omnipaque 350 Inj) 75 ml STK-MED ONCE IV Last administered on 11:31; Start 05/02/17 at 11:31; Stop 05/02/17 at 11:32; Status DC Cefepime HCl 2000 mg/Sodium Chloride 100 ml @ 200 mls/hr Q12H IV Last administered on 05/05/17 02:43; Start 05/02/17 at 15:00; Stop 05/05/17 at 11:53 ; Status DC Vancomycin HCl 1000 mg/Sodium Chloride 250 ml @ 250 mls/hr ONCE ONCE IV Last administered on 05/02/17 16:14; Start 05/02/17 at 15:00; Stop 05/02/17 at 15:59 ; Status DC Heparin Sodium (Porcine) (Heparin Inj) 5,000 units ONCE ONCE IV Last administered on 05/02/17 15:35; Start 05/02/17 at 16:00; Stop 05/02/17 at 16:01 ; Status DC Miscellaneous Information Patient in critical care unit? Ass... [id number] Last administered on 05/02/17 17:30; Start 05/02/17 at 17:15; Stop 06/05/17 at 10:42; Status DC Chlorhexidine Gluconate (Chlorhexidine 2% Cloth) 3 pack DAILY@04 TOPICAL Last administered on 05/07/17 03:45; Start 05/03/17 at 04:00; Stop 05/07/17 at 04:01 ; Status DC Chlorhexidine Gluconate (Chlorhexidine 2% Cloth) 3 pack UNSCH PRN TOPICAL HYGIENIC CARE; Start 05/02/17 at 17:15; Stop 05/07/17 at 17:08; Status DC Alteplase, Recombinant 50 mg/ Syringe / Bag 49.9999 ml @ 50 mls/hr ONCE ONCE IV Last administered on 05/02/17 19:58; Start 05/02/17 at 19:15; Stop at 20:14; Status DC Sodium Chloride (NS Inj) 30 ml ONCE ONCE IVF Last administered on 05/02/17 19 :15; Start 05/02/17 at 19:15; Stop 05/02/17 at 19:28; Status DC Miscellaneous Medication ([facility] [place] [facility] Information) Thrombolysis plan for submass... ONCE ONCE OTHER Last administered on 05/02/17 19:15; Start at 19:15; Stop 05/02/17 at 19:28; Status DC Heparin Sodium/ Dextrose 250 ml @ 0 mls/hr TITRATE IV Last administered on 05/26 06:57; Start 05/03/17 at 02:00; Stop 05/27/17 at 07:44; Status DC Epinephrine HCl 2 mg/Dextrose 250 ml @ 30 mls/hr TITRATE IV Last administered on 05/04/17 09:43; Start 05/03/17 at 10:15; Stop 05/07/17 at 16:44; Status DC Calcium Acetate (Phoslo) 2,668 mg TID PO Last administered on 05/27/17 12:23; Start 05/03/17 at 09:00; Stop 05/27/17 at 12:34; Status DC Epoprostenol Sodium 87.5 ml/ Sodium Chloride 100 ml @ 8 mls/hr Q8H NEB Last administered on 05/04/17 00:17; Start 05/03/17 at 09:00; Stop 05/04/17 at 14:14 ; Status DC Lidocaine HCl (Xylocaine 1% Inj (50 ml)) 50 ml STK-MED ONCE .ROUTE ; Start 05/03 at 12:21; Stop 05/03/17 at 12:22; Status DC Epoprostenol Sodium 40 ml/ Sodium Chloride 100 ml @ 8 mls/hr Q8H NEB Last administered on 05/06/17 06:04; Start 05/04/17 at 15:00; Stop 05/06/17 at 12:43 ; Status DC Calcium Gluconate 2 gm/Dextrose 120 ml @ 120 mls/hr ONCE ONCE IV Last administered on 05/04/17 20:00; Start 05/04/17 at 20:00; Stop 05/04/17 at 20:59 ; Status DC Cefepime HCl 2000 mg/Sodium Chloride 100 ml @ 200 mls/hr Q24H IV Last administered on 05/08/17 01:36; Start 05/06/17 at 03:00; Stop 05/08/17 at 23:00 ; Status DC Allopurinol (Zyloprim) 200 mg DAILY PO Last administered on 05/27/17 08:09; Start 05/06/17 at 09:00; Stop 05/27/17 at 14:46; Status DC Artificial Tears (Tears Naturale Opth Soln) 1 drop Q8H EACH EYE Last administered on 05/07/17 10:06; Start 05/05/17 at 18:00; Stop 05/07/17 at 12:11 ; Status DC Fentanyl Citrate (fentaNYL INJ) 100 mcg STK-MED ONCE IV ; Start 04/22/17 at 12: 00; Stop 05/06/17 at 12:46; Status DC Propofol (Diprivan 200 Mg/20 ml Inj) 200 mg STK-MED ONCE IV ; Start 04/22/17 at 12:00; Stop 05/06/17 at 12:46; Status DC Phenylephrine HCl (Neosynephrine/ NS 1000 Mcg/10ml Syr) 1,000 mcg STK-MED ONCE IV ; Start 04/22/17 at 12:00; Stop 05/06/17 at 12:47; Status DC Ondansetron HCl (Zofran Inj) 4 mg STK-MED ONCE IV PUSH ; Start 04/22/17 at 12:00 ; Stop 05/06/17 at 12:47; Status DC Pantoprazole Sodium (Protonix Inj) 40 mg DAILY IV PUSH Last administered on 06/16 09:06; Start 05/07/17 at 12:00 Artificial Tears (Lacrilube Opht Oint) 1 applic Q8H EACH EYE Last administered on 06/03/17 19:02; Start 05/07/17 at 18:00 Sodium Chloride 1,000 ml @ 0 mls/hr TITRATE PRN IV WITH DIALYSIS Last administered on 05/22/17 12:08; Start 05/07/17 at 18:00; Stop 06/05/17 at 10:42 ; Status DC Heparin Sodium (Porcine) (Heparin Inj) 8,000 units UNSCH PRN IV FLUSH WITH DIALYSIS; Start 05/07/17 at 18:00; Stop 06/05/17 at 10:42; Status DC Sodium Chloride 1,000 ml @ 200 mls/hr Q5H PRN IV WITH DIALYSIS Last administered on 05/25/17 10:29; Start 05/07/17 at 18:00; Stop 06/10/17 at 10:44 ; Status DC Sodium Chloride 200 ml @ 0 mls/hr UNSCH PRN IV WITH DIALYSIS; Start 05/07/17 at 18:00; Stop 06/05/17 at 10:42; Status DC Mannitol (Mannitol Inj) 12.5 gm UNSCH PRN IV WITH DIALYSIS; Start 05/07/17 at 18:00; Stop 06/05/17 at 10:42; Status DC Albumin Human (Albumin 25% Inj) 25 gm UNSCH PRN IV WITH DIALYSIS; Start at 18:00; Stop 06/05/17 at 10:42; Status DC Sodium Chloride (NS Flush) 5 ml UNSCH PRN IV FLUSH WITH DIALYSIS Last administered on 05/25/17 03:50; Start 05/07/17 at 18:00; Stop 06/05/17 at 10:42 ; Status DC Heparin Sodium (Porcine) (Heparin Inj) Dwell Heparin to f... UNSCH PRN OTHER WITH DIALYSIS Last administered on 05/25/17 10:31; Start 05/07/17 at 18:00; Stop 06/05/17 at 10:42; Status DC Gentamicin Sulfate (Gentamicin (Dialysis) Inj) 10 mg UNSCH PRN OTHER WITH DIALYSIS Last administered on 05/25/17 10:29; Start 05/07/17 at 18:00; Stop at 10:42; Status DC Gelatin (Gelfoam 12 Mm/7 Mm Top) 1 foam UNSCH PRN TOPICAL WITH DIALYSIS; Start 05/07/17 at 18:00; Stop 06/05/17 at 10:42; Status DC Ondansetron HCl (Zofran Inj) 4 mg UNSCH PRN IV NAUSEA OR VOMITING; Start at 18:00; Stop 06/10/17 at 10:44; Status DC Acetaminophen (Tylenol) 650 mg UNSCH X1 PRN PO WITH DIALYSIS Last administered on 05/08/17 10:07; Start 05/07/17 at 18:00; Stop 05/14/17 at 17:59; Status DC Diphenhydramine HCl (Benadryl) 25 mg UNSCH PRN PO WITH DIALYSIS; Start at 18:00; Stop 06/05/17 at 10:42; Status DC Nitroglycerin (Nitrostat Sl) 0.4 mg UNSCH PRN SL WITH DIALYSIS; Start 05/07/17 at 18:00; Stop 06/05/17 at 10:42; Status DC Clonidine (Catapres) 0.1 mg UNSCH PRN PO WITH DIALYSIS; Start 05/07/17 at 18:00 ; Stop 06/05/17 at 10:42; Status DC Polyethylene Glycol (Miralax) 17 gm DAILY PO Last administered on 05/10/17 07: 52; Start 05/08/17 at 09:00; Stop 05/13/17 at 17:16; Status DC Lactulose (Lactulose Liq) 30 ml BID PO Last administered on 05/10/17 07:51; Start 05/08/17 at 09:00; Stop 05/13/17 at 17:16; Status DC Bisacodyl (Dulcolax Supp) 10 mg DAILY PRN RECTAL CONSTIPATION; Start 05/08/17 at 08:15; Stop 05/08/17 at 08:16; Status DC Diatrizoate Meglum/ Diatrizoate Sod ( Gastroview Liq) 18 ml ONCE ONCE PO Last administered on 05/09/17 16:42; Start 05/09/17 at 14:15; Stop 05/09/17 at 14:16; Status DC Heparin Sodium (Porcine) (Heparin Inj) 300 units NOW ONCE IV ; Start 05/09/17 at 18:30; Stop 05/09/17 at 18:31; Status DC Potassium Chloride 100 ml @ 50 mls/hr BOLUS ONCE IV Last administered on 05/10 13:31; Start 05/10/17 at 12:30; Stop 05/10/17 at 14:29; Status DC Sucralfate (Carafate Liq) 1 gm Q8HR PO Last administered on 05/13/17 04:46; Start 05/10/17 at 14:00; Stop 05/13/17 at 13:59; Status DC Potassium Chloride 100 ml @ 50 mls/hr ONCE ONCE IV Last administered on 08:54; Start 05/11/17 at 08:30; Stop 05/11/17 at 10:29; Status DC Metronidazole (Flagyl) 500 mg Q8HR PO Last administered on 05/25/17 05:32; Start 05/11/17 at 14:00; Stop 05/25/17 at 12:07; Status DC Morphine Sulfate (Morphine Inj) 4 mg NOW ONCE IV PUSH Last administered on 05/12 09:58; Start 05/12/17 at 09:45; Stop 05/12/17 at 09:46; Status DC Potassium Chloride 100 ml @ 25 mls/hr ONCE ONCE IV Last administered on 13:51; Start 05/12/17 at 13:45; Stop 05/12/17 at 17:44; Status DC Vancomycin HCl (VANCOMYCIN for oral use only) 500 mg QID PO Last administered on 05/25/17 21:09; Start 05/13/17 at 13:00; Stop 05/25/17 at 23:00; Status DC Dronabinol (Marinol) 5 mg BID@11,16 PO Last administered on 06/15/17 16:04; Start 05/14/17 at 16:00 Heparin Sodium (Porcine) (*HEPARIN INJ Periprocedural ONLY) 10,000 units STK- MED ONCE .ROUTE Last administered on 05/15/17 15:50; Start 05/15/17 at 15:24; Stop 05/15/17 at 15:25; Status DC Sodium Chloride (NS Flush) UNSCH PRN IVF SEE PROTOCOL Last administered on 03:51; Start 05/15/17 at 16:00; Stop 06/05/17 at 10:43; Status DC Heparin Sodium (Porcine) (Heparin Inj) UNSCH PRN IV FLUSH SEE PROTOCOL; Start 05/15/17 at 16:00; Stop 06/05/17 at 10:43; Status DC Iohexol (Omnipaque 350 Inj) 10 ml STK-MED ONCE IV Last administered on 15:50; Start 05/15/17 at 20:42; Stop 05/15/17 at 20:43; Status DC Potassium Chloride (KCl) 30 meq ONCE ONCE PO Last administered on 05/16/17 11: 06; Start 05/16/17 at 09:00; Stop 05/16/17 at 09:01; Status DC Dexamethasone (Decadron) 40 mg ONCE ONCE PO ; Start 05/16/17 at 13:00; Stop 05/16 at 13:01; Status DC Potassium Chloride (KCl) 30 meq ONCE ONCE PO Last administered on 05/17/17 08: 57; Start 05/17/17 at 07:45; Stop 05/17/17 at 07:46; Status DC Potassium Chloride (KCl) 20 meq ONCE ONCE PO Last administered on 05/17/17 15: 00; Start 05/17/17 at 13:00; Stop 05/17/17 at 13:01; Status DC Granisetron HCl (Kytril Inj) 1 mg ONCE ONCE IV PUSH Last administered on 17:02; Start 05/18/17 at 16:30; Stop 05/18/17 at 16:31; Status DC Dexamethasone Sodium Phosphate 20 mg/Sodium Chloride 55 ml @ 220 mls/hr ONCE ONCE IV Last administered on 05/18/17 17:02; Start 05/18/17 at 16:30; Stop at 16:44; Status DC Doxorubicin HCl (Adriamycin Inj) 91 mg ONCE ONCE IV PUSH Last administered on 05/18/17 17:35; Start 05/18/17 at 17:00; Stop 05/18/17 at 17:01; Status DC Vincristine Sulfate 2 mg/ Sodium Chloride 52 ml @ 312 mls/hr ONCE ONCE IV Last administered on 05/18/17 17:50; Start 05/18/17 at 17:30; Stop 05/18/17 at 17: 39; Status DC Cyclophosphamide 1019 mg/Sodium Chloride 500 ml @ 500 mls/hr ONCE ONCE IV Last administered on 05/18/17 18:08; Start 05/18/17 at 18:00; Stop 05/18/17 at 18: 59; Status DC Prednisone (Deltasone) 91 mg HS PO Last administered on 05/22/17 19:54; Start 05/18/17 at 21:00; Stop 05/22/17 at 21:01; Status DC Sodium Chloride 250 ml @ 0 mls/hr ONCE ONCE IV Last administered on 05/18/17 17:00; Start 05/18/17 at 17:00; Stop 05/18/17 at 17:01; Status DC Warfarin Sodium (Coumadin) 1 mg DAILY@16 PO Last administered on 05/20/17 17:37 ; Start 05/19/17 at 16:00; Stop 05/21/17 at 12:42; Status DC Patient Medication Teaching (Coumadin Booklet) 1 ONCE ONCE OTHER Last administered on 05/19/17 16:00; Start 05/19/17 at 16:00; Stop 05/19/17 at 16:01; Status DC Warfarin Sodium (Coumadin) 1 mg NOW ONCE PO Last administered on 05/19/17 19: 40; Start 05/19/17 at 19:45; Stop 05/19/17 at 19:46; Status DC Sodium Chloride 250 ml @ 15 mls/hr ONCE ONCE IV Last administered on 18:36; Start 05/20/17 at 10:00; Stop 05/21/17 at 02:39; Status DC Albuterol Sulfate (Ventolin Hfa Inh) 2 puff Q6HR INH Last administered on 23:45; Start 05/21/17 at 00:00; Stop 05/29/17 at 07:34; Status DC Warfarin Sodium (Coumadin) 2 mg DAILY@16 PO Last administered on 05/21/17 17: 27; Start 05/21/17 at 16:00; Stop 05/22/17 at 14:13; Status DC Epoetin Oleksandr (Epogen Inj) 10,000 units UNSCH PRN IV WITH DIALYSIS Last administered on 05/25/17 10:30; Start 05/21/17 at 18:30; Stop 06/05/17 at 10:43 ; Status DC Warfarin Sodium (Coumadin) 3 mg DAILY@16 PO Last administered on 05/22/17 18: 35; Start 05/22/17 at 16:00; Stop 05/23/17 at 12:26; Status DC Warfarin Sodium (Coumadin) 4 mg DAILY@16 PO Last administered on 06/02/17 17: 39; Start 05/23/17 at 16:00; Stop 06/03/17 at 11:39; Status DC Sodium Chloride (NS Flush) 5 ml UNSCH PRN IV FLUSH SEE PROTOCOL TABLE Last administered on 05/25/17 03:51; Start 05/24/17 at 06:45; Stop 06/05/17 at 10:43 ; Status DC Heparin Sodium (Porcine) (Heparin Central Flush) 250 units UNSCH PRN IV FLUSH SEE PROTOCOL TABLE Last administered on 06/02/17 05:14; Start 05/24/17 at 06:45 ; Stop 06/06/17 at 19:57; Status DC Heparin Sodium (Porcine) (Heparin Central Flush) 500 units UNSCH IV FLUSH ; Start 05/24/17 at 06:45; Stop 06/06/17 at 19:57; Status DC Sodium Chloride 250 ml @ 15 mls/hr ONCE ONCE IV ; Start 05/25/17 at 10:00; Stop 05/26/17 at 02:39; Status DC Potassium Chloride (KCl) 20 meq ONCE ONCE PO Last administered on 05/25/17 12 :08; Start 05/25/17 at 11:00; Stop 05/25/17 at 11:10; Status DC Potassium Chloride (KCl) 40 meq ONCE ONCE PO Last administered on 05/26/17 09 :06; Start 05/26/17 at 08:30; Stop 05/26/17 at 08:31; Status DC Filgrastim 300 mcg/Dextrose 25 ml @ 100 mls/hr DAILY@14 IV Last administered on 05/31/17 12:50; Start 05/26/17 at 15:00; Stop 05/31/17 at 14:20; Status DC Potassium Chloride (KCl) 40 meq ONCE ONCE PO Last administered on 05/27/17 08 :24; Start 05/27/17 at 08:15; Stop 05/27/17 at 08:16; Status DC Potassium Chloride (KCl) 20 meq ONCE ONCE PO Last administered on 05/27/17 12 :23; Start 05/27/17 at 13:00; Stop 05/27/17 at 13:01; Status DC Magnesium Sulfate/ Dextrose 100 ml @ 100 mls/hr ONCE ONCE IV Last administered on 05/27/17 14:31; Start 05/27/17 at 13:30; Stop 05/27/17 at 14:29 ; Status DC Allopurinol (Zyloprim) 300 mg DAILY PO Last administered on 06/16/17 09:05; Start 05/28/17 at 09:00 Magnesium Oxide (Mag-Ox) 400 mg Q12HR PO Last administered on 06/16/17 09:05; Start 05/28/17 at 09:00 Potassium Chloride (KCl) 20 meq ONCE ONCE PO Last administered on 05/28/17 09 :54; Start 05/28/17 at 09:00; Stop 05/28/17 at 09:01; Status DC Albuterol Sulfate (Ventolin Hfa Inh) 2 puff Q6HR PRN INH SHORTNESS OF BREATH; Start 05/29/17 at 07:30 Potassium Chloride (KCl) 30 meq ONCE ONCE PO Last administered on 05/29/17 15 :50; Start 05/29/17 at 14:00; Stop 05/29/17 at 14:15; Status DC Potassium Chloride (KCl) 30 meq ONCE ONCE PO Last administered on 05/29/17 17 :24; Start 05/29/17 at 18:00; Stop 05/29/17 at 18:01; Status DC Potassium Chloride (KCl) 40 meq STK-MED ONCE PO Last administered on 05/31/17 12:13; Start 05/31/17 at 12:13; Stop 05/31/17 at 12:20; Status DC Magnesium Sulfate/ Dextrose 200 ml @ As Directed STK-MED ONCE .ROUTE Last administered on 05/31/17 12:14; Start 05/31/17 at 12:14; Stop 05/31/17 at 12:21 ; Status DC Multi-Ingredient Ointment (Eucerin Cream) 1 applic Q6H PRN TOPICAL DRY SKIN Last administered on 05/31/17 17:46; Start 05/31/17 at 14:00 Potassium Phos/ Sodium Phos (K-Phos Neutral) 250 mg Q8HR PO Last administered on 06/12/17 05:01; Start 06/01/17 at 08:15; Stop 06/12/17 at 15:09; Status DC Pharmacy Profile Note 0 ml @ 0 mls/hr UNSCH OTHER ; Start 06/01/17 at 09:30 Warfarin Sodium (Coumadin) 1 mg ONCE ONCE PO Last administered on 06/02/17 17 :39; Start 06/02/17 at 16:00; Stop 06/02/17 at 16:01; Status DC Warfarin Sodium (Coumadin) 3 mg ONCE ONCE PO ; Start 06/03/17 at 16:00; Stop at 16:01; Status Cancel Heparin Sodium/ Dextrose 250 ml @ 11.448 mls/ hr TITRATE PRN IV Coagulation management; Start 06/03/17 at 09:15; Stop 06/03/17 at 12:04; Status DC Warfarin Sodium (Coumadin) 5 mg DAILY@1600 PO Last administered on 06/04/17 17 :36; Start 06/03/17 at 16:00; Stop 06/05/17 at 10:43; Status DC Enoxaparin Sodium (Lovenox Inj) 60 mg Q12H SQ Last administered on 06/09/17 00 :25; Start 06/03/17 at 13:00; Stop 06/09/17 at 08:27; Status DC Warfarin Sodium (Coumadin) 2.5 mg ONCE ONCE PO ; Start 06/05/17 at 16:00; Stop 06/05/17 at 16:01; Status Cancel Warfarin Sodium (Coumadin) 6 mg DAILY@1600 PO Last administered on 06/07/17 15 :00; Start 06/06/17 at 16:00; Stop 06/10/17 at 10:44; Status DC Warfarin Sodium (Coumadin) 7.5 mg ONCE@1600 ONCE PO Last administered on 15:44; Start 06/05/17 at 16:00; Stop 06/05/17 at 16:01; Status DC Sodium Chloride (NS Flush) 5 ml UNSCH PRN IV FLUSH SEE PROTOCOL TABLE; Start at 20:00 Heparin Sodium (Porcine) (Heparin Central Flush) 250 units UNSCH PRN IV FLUSH SEE PROTOCOL TABLE; Start 06/06/17 at 20:00 Heparin Sodium (Porcine) (Heparin Central Flush) 500 units UNSCH IV FLUSH Last administered on 06/06/17 21:17; Start 06/06/17 at 20:00 Rituximab 686.3 mg/Sodium Chloride 568.63 ml @ 0 mls/hr ONCE ONCE IV Last administered on 06/08/17 13:23; Start 06/08/17 at 13:00; Stop 06/08/17 at 13:01 ; Status DC Acetaminophen (Tylenol) 650 mg ONCE ONCE PO Last administered on 06/08/17 12: 43; Start 06/08/17 at 12:30; Stop 06/08/17 at 12:31; Status DC Diphenhydramine HCl (Benadryl) 50 mg ONCE ONCE PO Last administered on 12:43; Start 06/08/17 at 12:30; Stop 06/08/17 at 12:31; Status DC Sodium Chloride 1,000 ml @ 100 mls/hr Q10H IV Last administered on 06/08/17 12:43; Start 06/08/17 at 13:00; Stop 06/08/17 at 23:59; Status DC Granisetron HCl 1 mg/Dexamethasone Sodium Phosphate 20 mg/Sodium Chloride 56 ml @ 224 mls/hr DAILY@1430 IV ; Start 06/09/17 at 14:30; Stop 06/09/17 at 14:30; Status DC Etoposide 91.5 mg/ Doxorubicin HCl 18.3 mg/ Vincristine Sulfate 0.7 mg/ Sodium Chloride 514.425 ml @ 21.024 mls/hr Q24H IV ; Start 06/09/17 at 15:00; Stop at 15:00; Status DC Prednisone (Deltasone) 100 mg Q12H PO Last administered on 06/13/17 22:24; Start 06/09/17 at 11:00; Stop 06/13/17 at 23:01; Status DC Prednisone (Deltasone) 10 mg Q12H PO Last administered on 06/13/17 22:24; Start 06/09/17 at 11:00; Stop 06/13/17 at 23:01; Status DC Cyclophosphamide 1372.5 mg/Sodium Chloride 500 ml @ 500 mls/hr ONCE ONCE IV Last administered on 06/14/17 01:34; Start 06/13/17 at 15:00; Stop 06/13/17 at 15: 59; Status DC Etoposide 91.5 mg/ Doxorubicin HCl 18.3 mg/ Vincristine Sulfate 0.7 mg/ Sodium Chloride 514.425 ml @ 21.024 mls/hr Q24H IV Last administered on 06/13/17 00: 51; Start 06/09/17 at 13:00; Stop 06/13/17 at 12:59; Status DC Sodium Chloride 1,000 ml @ 50 mls/hr Q20H IV Last administered on 06/15/17 16: 05; Start 06/09/17 at 09:00 Granisetron HCl 1 mg/Dexamethasone Sodium Phosphate 20 mg/Sodium Chloride 56 ml @ 224 mls/hr DAILY@1230 IV Last administered on 06/13/17 00:09; Start at 12:30; Stop 06/12/17 at 12:44; Status DC Magnesium Sulfate/ Dextrose 100 ml @ 100 mls/hr Q1H IV Last administered on 11:25; Start 06/09/17 at 11:00; Stop 06/09/17 at 12:59; Status DC Potassium Chloride (KCl) 40 meq ONCE ONCE PO Last administered on 06/09/17 10 :27; Start 06/09/17 at 10:15; Stop 06/09/17 at 10:16; Status DC Warfarin Sodium (Coumadin) 5 mg DAILY@1600 PO ; Start 06/10/17 at 16:00; Stop at 16:00; Status DC Warfarin Sodium (Coumadin) 5 mg DAILY@1600 PO Last administered on 06/13/17 18: 24; Start 06/10/17 at 16:00; Stop 06/14/17 at 09:07; Status DC Magnesium Oxide (Mag-Ox) 400 mg ONCE ONCE PO Last administered on 06/11/17 12 :57; Start 06/11/17 at 10:30; Stop 06/11/17 at 10:31; Status DC Potassium Chloride (KCl) 40 meq ONCE ONCE PO Last administered on 06/11/17 12 :57; Start 06/11/17 at 10:30; Stop 06/11/17 at 10:31; Status DC Filgrastim 300 mcg/Dextrose 25 ml @ 100 mls/hr DAILY@14 IV Last administered on 06/15/17 14:49; Start 06/15/17 at 09:00 Magnesium Sulfate 4 gm/Dextrose 100 ml @ 25 mls/hr ONCE ONCE IV Last administered on 06/12/17 18:06; Start 06/12/17 at 17:00; Stop 06/12/17 at 20:59; Status DC Potassium Chloride (KCl) 40 meq ONCE ONCE PO Last administered on 06/12/17 18: 05; Start 06/12/17 at 16:00; Stop 06/12/17 at 16:01; Status DC Warfarin Sodium (Coumadin) 4 mg DAILY@1600 PO Last administered on 06/15/17 16: 04; Start 06/14/17 at 16:00 Potassium Chloride (KCl) 40 meq ONCE ONCE PO Last administered on 06/14/17 13: 47; Start 06/14/17 at 13:00; Stop 06/14/17 at 13:01; Status DC Magnesium Sulfate/ Dextrose 100 ml @ 100 mls/hr Q1H IV Last administered on 11:01; Start 06/15/17 at 10:00; Stop 06/15/17 at 11:59; Status DC Potassium Chloride (KCl) 40 meq DAILY PO Last administered on 06/16/17 09:06; Start 06/15/17 at 11:00 Potassium Chloride (KCl) 40 meq ONCE ONCE PO Last administered on 06/15/17 14: 48; Start 06/15/17 at 13:00; Stop 06/15/17 at 13:01; Status DC Calcium Carbonate (Oscal) 500 mg Q12HR PO Last administered on 06/16/17 09:05; Start 06/15/17 at 12:00 Urinary Catheter: No Vascular Central Line Catheter: Yes Assessment to: Continue Line: Central Venous Catheter Side: Right A/P Problem List: (1) Acute pancreatitis ICD Code: K85.90 - Acute pancreatitis without necrosis or infection, unspecified Status: Resolved (2) Transaminitis ICD Code: R74.0 - Nonspecific elevation of levels of transaminase and lactic acid dehydrogenase [LDH] Status: Acute (3) ALDO (acute kidney injury) ICD Code: N17.9 - Acute kidney failure, unspecified Status: Resolved (4) Pleural effusion ICD Code: J90 - Pleural effusion, not elsewhere classified Status: Acute Assessment and Plan Acute Hypoxic Respiratory Failure Acute Submassive Pulmonary Embolism Right Heart Dysfunction Global severe left ventricular systolic dysfunction Cardiogenic Shock-resolved - 2d echo 05/02: EF 30-35%, RV dysfunction with dilation - Repeat ECHO limited study scheduled on 05/09 - RV function appears to have normalized, question of interatrial shunt for which cardiology consulted, recommendations that once off anticoagulation, would need to be on ASA and require f/u echo periodically for evaluation. Follow. Acute Kidney Injury-resolved. Hypokalemia-replaced. hypomagnesemia- improved. - Likely secondary to cardiogenic shock - HD was discontinued. - s/p vas-cath removal - nephrology has signed off. - BMP reviewed today showing improvement in electrolytes. Hyperphosphatemia-resolved. protein calorie malnutrition- severe ileus-resolved. - [employer] following; recommended alternative form of nutrition - PEG was discussed with the patient which he again declined, he states that his appetite is better now, regular diet with thin liquids. Large Cell B-cell lymphoma Leukopenia Pulmonary Embolism anemia of chronic disease - Hematology/oncology following, Dr. Connelly - Received chemo CHOP regimen. - Started on EPOCH chemotherapy - Continue Coumadin, discontinued Lovenox , monitor INR, 2.1 today 06/13. Follow daily. - Monitor for fevers. C. difficile colitis, resolved: Diarrhea improved. Finished course of Vanco and Flagyl DVT Prophylaxis: Coumadin HYPOKALEMIA AND HYPOMAGNESIA WILL REPLACE BOTH LEUKOCYTOSIS DUE TO NEUPOGEN DW PT AND RN Problem Qualifiers (1) Acute pancreatitis: Kirk Long DO Jun 16, 2017 10:17
--- NOTE | 2017-06-16 10:29 | HHI.DS ---
Discharge Summary Admission Date Apr 18, 2017 at 19:08 Discharge Date: Jun 16, 2017 Admitting Diagnosis Acute Pancreatitis, Dehydration (1) Acute pancreatitis ICD Code: K85.90 - Acute pancreatitis without necrosis or infection, unspecified Diagnosis: Secondary Status: Resolved (2) Transaminitis ICD Code: R74.0 - Nonspecific elevation of levels of transaminase and lactic acid dehydrogenase [LDH] Diagnosis: Secondary Status: Acute (3) ALDO (acute kidney injury) ICD Code: N17.9 - Acute kidney failure, unspecified Diagnosis: Secondary Status: Resolved (4) Pleural effusion ICD Code: J90 - Pleural effusion, not elsewhere classified Diagnosis: Principal Status: Acute (5) Pulmonary emboli ICD Code: I26.99 - Other pulmonary embolism without acute cor pulmonale Diagnosis: Principal Status: Chronic (6) GERD (gastroesophageal reflux disease) ICD Code: K21.9 - Gastro-esophageal reflux disease without esophagitis Diagnosis: Secondary (7) Gait instability ICD Code: R26.81 - Unsteadiness on feet Diagnosis: Secondary (8) Hypomagnesemia ICD Code: E83.42 - Hypomagnesemia Diagnosis: Secondary (9) Hypokalemia ICD Code: E87.6 - Hypokalemia Diagnosis: Secondary (10) Electrolyte depletion ICD Code: E87.8 - Other disorders of electrolyte and fluid balance, not elsewhere classified Diagnosis: Secondary (11) Debility ICD Code: R53.81 - Other malaise Diagnosis: Secondary Status: Acute (12) C. difficile colitis ICD Code: A04.7 - Enterocolitis due to Clostridium difficile Diagnosis: Principal Status: Resolved (13) Anemia ICD Code: D64.9 - Anemia, unspecified Diagnosis: Principal Status: Acute (14) Non-Hodgkin lymphoma ICD Code: C85.90 - Non-Hodgkin lymphoma, unspecified, unspecified site Diagnosis: Principal Status: Acute (15) Shortness of breath ICD Code: R06.02 - Shortness of breath Diagnosis: Principal Status: Acute Procedures 04/[address] excision biopsy 04/27- port placement 05/02-TPA 05/06-left IJ Vas-Cath placement endotracheal intubation Brief History - From Admission 47 y/o male with no medical history presented to the ED with complaints of abdominal pain, nausea and vomiting. Patient states for the last 2 weeks he has not been able to keep anything down and he has been vomiting at least twice a day, with watery stools. Denies any blood in his emesis or stools. Patient states he used to be a heavy drinker but quit 2 months ago. Denies any chest pain, shortness of breath, fever or chills. Patient does complain of a nonproductive cough, that has been getting worse, he also states he was a heavy smoker up until about 2 months ago. CBC/BMP: 06/16/17 0545 06/16/17 0545 Significant Findings Laboratory Tests Test 06/14/17 05:22 06/15/17 04:28 06/16/17 05:45 Red Blood Count 3.39 MIL/MM3 (4.50-5.90) 3.26 MIL/MM3 (4.50-5.90) 2.89 MIL/MM3 (4.50-5.90) Hemoglobin 10.2 GM/DL (13.0-17.0) 10.0 GM/DL (13.0-17.0) 8.5 GM/DL (13.0-17.0) Hematocrit 30.3 % (39.0-51.0) 29.0 % (39.0-51.0) 25.9 % (39.0-51.0) Neutrophils (%) (Auto) 95.5 % (16.0-70.0) 92.0 % (16.0-70.0) 96.5 % (16.0-70.0) Lymphocytes (%) (Auto) 3.4 % (9.0-44.0) 7.5 % (9.0-44.0) 2.8 % (9.0-44.0) Lymphocytes # (Auto) 0.2 TH/MM3 (1.0-4.8) 0.7 TH/MM3 (1.0-4.8) 0.6 TH/MM3 (1.0-4.8) Prothrombin Time 30.1 SEC (9.8-11.6) 29.3 SEC (9.8-11.6) 22.9 SEC (9.8-11.6) Creatinine 0.53 MG/DL (0.60-1.30) 0.54 MG/DL (0.60-1.30) 0.47 MG/DL (0.60-1.30) Random Glucose 115 MG/DL (74-106) 72 MG/DL (74-106) Total Protein 5.4 GM/DL (6.4-8.2) 5.0 GM/DL (6.4-8.2) 4.7 GM/DL (6.4-8.2) Albumin 2.0 GM/DL (3.4-5.0) 1.9 GM/DL (3.4-5.0) 1.8 GM/DL (3.4-5.0) Calcium Level 7.1 MG/DL (8.5-10.1) 6.8 MG/DL (8.5-10.1) 7.3 MG/DL (8.5-10.1) Potassium Level 3.2 MEQ/L (3.5-5.1) 2.9 MEQ/L (3.5-5.1) Protein Corrected Calcium 8.0 MG/DL (8.5-10.1) 7.9 MG/DL (8.5-10.1) Neutrophils # (Auto) 8.0 TH/MM3 (1.8-7.7) 19.6 TH/MM3 (1.8-7.7) Phosphorus Level 1.6 MG/DL (2.5-4.9) Aspartate Amino Transf (AST/SGOT) 13 U/L (15-37) 8 U/L (15-37) Thyroid Stimulating Hormone 3rd Gen 15.000 uIU/ML (0.358-3.740) White Blood Count 20.3 TH/MM3 (4.0-11.0) Imaging Last Impressions Chest X-Ray 06/10/17 0000 Signed Impressions: Service Date/Time: Saturday, June 10, 2017 13:04 - CONCLUSION: Basilar infiltrates and effusions. Right paratracheal mass Tacos Garcia MD Abdomen X-Ray 05/15/17 0600 Signed Impressions: Service Date/Time: Monday, May 15, 2017 04:29 - CONCLUSION: Findings of mild small bowel ileus. There has been no significant change when compared to the prior exam. Jadon Carroll MD Central Venous Line 05/15/17 0000 Signed Impressions: Service Date/Time: Monday, May 15, 2017 00:00 - CONCLUSION: Uncomplicated catheter removal. Bryon Calero Jr., MD Catheter Placement X-Ray 05/15/17 0000 Signed Impressions: Service Date/Time: Monday, May 15, 2017 15:13 - CONCLUSION: Mild narrowing involving the brachiocephalic vein near its junction with the SVC. This is not flow limiting. A left-sided vas catheter was placed. Bryon Calero Jr., MD Abdomen/Pelvis CT 05/09/17 0000 Signed Impressions: Service Date/Time: Tuesday, May 09, 2017 21:16 - CONCLUSION: 1. Diffusely distended loops of small bowel down to the cecum suggest ileus. 2. Evidence of mesenteric and retroperitoneal adenopathy. 3. Large bilateral pleural effusions , moderate amount of free fluid in the pelvis and mild ascites in the upper abdomen. 4. Abnormal appearance to the parenchyma of the right kidney with patchy areas of hyperdensity in a mosaic pattern. This of uncertain significance. The patient had iodinated contrast for a CT pulmonary angiogram 7 days ago; this could potentially represent residual parenchymal contrast which would be nonspecific, but raises the possibility of either obstruction or renal infarctions. Bryon Evans MD Renal Ultrasound 05/05/17 0000 Signed Impressions: Service Date/Time: Friday, May 05, 2017 20:06 - CONCLUSION: 1. Kidneys are borderline echogenic which can be seen with medical renal disease. 2. No evidence of hydronephrosis. 3. Abdominal ascites. 4. Multiple dilated bowel loops. 5. Bilateral pleural effusions. Tray Patel MD Head CT 05/03/17 0000 Signed Impressions: Service Date/Time: Wednesday, May 03, 2017 17:22 - CONCLUSION: No acute intracranial disease. No hemorrhage seen. Tray Patel MD CT Angiography 05/02/17 0000 Signed Impressions: Service Date/Time: Tuesday, May 02, 2017 11:10 - CONCLUSION: 1. There is pulmonary embolus in the right pulmonary artery, right upper lobe and lower lobe branches. 2. Resorption of previously seen gas in the left axilla with fluid collection at this site with postprocedural change and possibly postprocedural hemorrhage not significantly changed in size. 3. Interval development of right lung airspace process may represent postobstructive pneumonia and there is mucus within the trachea not present yesterday. 4. Right pleural effusion is smaller and left pleural effusion is larger. 5. No change in bulky adenopathy. Leonor Chavez MD Upper Extremity Ultrasound 04/30/17 0000 Signed Impressions: Service Date/Time: April 12:25 - CONCLUSION: There some superficial thrombosis of a vein in the forearm. The deep venous system is patent. Large fluid collection left axilla. Significant soft tissue edema throughout the upper arm. Rinku Hillman MD Thoracentesis Ultrasound 04/30/17 0000 Signed Impressions: Service Date/Time: April 12:14 - CONCLUSION: Uncomplicated ultrasound guided thoracentesis. Tray Patel MD Port Line Insertion 04/27/17 0000 Signed Impressions: Service Date/Time: Thursday, April 27, 2017 14:56 - CONCLUSION: 1. Bulky bilateral lower cervical lymphadenopathy. 2. Uncomplicated ultrasound and fluoroscopic guided implanted central venous port catheter placement as described in detail above. An 8 [employer] port was placed. Liang Peralta MD Bone Biopsy CT 04/27/17 0000 Signed Impressions: Service Date/Time: Thursday, April 27, 2017 16:22 - CONCLUSION: 1. Uncomplicated CT guided bone marrow aspirate. 2. Uncomplicated CT guided bone marrow biopsy. Tray Patel MD Chest CT 04/25/17 0000 Signed Impressions: Service Date/Time: Wednesday, April 26, 2017 19:00 - CONCLUSION: The right pleural effusion is slightly larger on the left side has not changed. Extensive bulky adenopathy as before and malignancies such as lymphoma is suspected. Leonor Chavez MD Gall Bladder Ultrasound 04/22/17 0000 Signed Impressions: Service Date/Time: Saturday, April 22, 2017 07:35 - CONCLUSION: Small liver with focal abdomen only incompletely evaluated. Large right pleural effusion. effusion. Kirk Briceño MD FACR Abdomen CT 04/20/17 0000 Signed Impressions: Service Date/Time: Thursday, April 20, 2017 19:40 - CONCLUSION: Limited exam because of lack of intravenous contrast. Lymphoma is suspected. Pathological diagnosis could be obtained with ultrasound biopsy of the cervical, axillary or inguinal adenopathy. Kirk Briceño MD FACR PE at Discharge GENERAL: This is a well-nourished, well-developed patient, in no apparent distress. SKIN: No rashes, warm and dry HEAD: Atraumatic. Normocephalic. EYES: Pupils equal round and reactive. Extraocular motions intact. No scleral icterus. ENT: Nose without bleeding, or drainage, Airway patent. Tongue is midline ORAL mucosa is moist NECK: Trachea midline. Supple no obvious JVD CARDIOVASCULAR: Regular rate and rhythm without murmurs, gallops, or rubs. S1- S2 no S3 or S4 no heave or thrill RESPIRATORY: Fair air entry bilaterally. No wheezes, rales, or rhonchi. GASTROINTESTINAL: Abdomen soft, non-tender, nondistended. Positive bowel sounds x 4 q. MUSCULOSKELETAL: Extremities without clubbing, cyanosis, or edema. DP and Pedal pulses appreciated NEUROLOGICAL: Awake and alert. Moves all extremity. Normal speech. no focal neurological deficit Insight and judgment are good Mood and behavior appropriate Hospital Course Assessment and Plan Acute Hypoxic Respiratory Failure Acute Submassive Pulmonary Embolism Right Heart Dysfunction Global severe left ventricular systolic dysfunction Cardiogenic Shock-resolved - 2d echo 05/02: EF 30-35%, RV dysfunction with dilation - Repeat ECHO limited study scheduled on 05/09 - RV function appears to have normalized, question of interatrial shunt for which cardiology consulted, recommendations that once off anticoagulation, would need to be on ASA and require f/u echo periodically for evaluation. Follow. Acute Kidney Injury-resolved. Hypokalemia-replaced. hypomagnesemia- improved. - Likely secondary to cardiogenic shock - HD was discontinued. - s/p vas-cath removal - nephrology has signed off. - BMP reviewed today showing improvement in electrolytes. Hyperphosphatemia-resolved. protein calorie malnutrition- severe ileus-resolved. - Dispensary Attendant following; recommended alternative form of nutrition - PEG was discussed with the patient which he again declined, he states that his appetite is better now, regular diet with thin liquids. Large Cell B-cell lymphoma Leukopenia Pulmonary Embolism anemia of chronic disease - Hematology/oncology following, Dr. Connelly - Received chemo CHOP regimen. - Started on EPOCH chemotherapy - Continue Coumadin, discontinued Lovenox , monitor INR, 2.1 today 06/13. Follow daily. - Monitor for fevers. C. difficile colitis, resolved: Diarrhea improved. Finished course of Vanco and Flagyl DVT Prophylaxis: Coumadin HYPOKALEMIA AND HYPOMAGNESIA WILL REPLACE BOTH LEUKOCYTOSIS DUE TO NEUPOGEN DW PT AND RN Pt Condition on Discharge: Good Discharge Disposition: Discharge Home Discharge Time: > 30 minutes Discharge Instructions DIET: Follow Instructions for: Heart Healthy Diet, Coumadin (Warfarin) Diet Speech Therapy-Diet Recommends: Regular Activities you can perform: Regular-No Restrictions Follow up Referrals: Oncology - 2-3 Days with Ruslan Connelly MD New Medications: Commode 3-in-1 (Commode 3-in-1) 1 Mis Mis EA .ROUTE DIRECTED for WEAKNESS, #1 0 Refills Pantoprazole (Protonix) 40 Mg Tab 40 MG PO DAILY for Reflux, #30 TAB 0 Refills Walker with Front Wheels (Walker with Front Wheels) 1 Mis Mis EA .ROUTE DIRECTED for WEAKNESS, #1 0 Refills Albuterol 18 GM Inh (Ventolin Hfa 18 GM Inh) 90 Mcg/Act Aer 2 PUFF INH Q6HR PRN for SHORTNESS OF BREATH, #1 INHALER Allopurinol (Zyloprim) 300 Mg Tab 300 MG PO DAILY for uric acid management, #30 TAB Artificial Tear Opth Ointment (Akwa Tears Opth Ointment) 2-15-83% Oint 1 APPLIC EACH EYE Q8H for Dry Eye, #1 TUBE Dronabinol (Dronabinol) 5 Mg Cap 5 MG PO BID@11,16 for appetite, #60 CAP Hydrocodone-Acetaminophen (Hydrocodone-Acetaminophen) 5-325 mg Tab 1 TAB PO Q6H PRN for PAIN SCALE 1 TO 10, #30 TAB Magnesium Oxide (Magnesium Oxide) 400 Mg Tab 400 MG PO Q12HR for Electrolyte Replacement, #60 TAB Nifedipine (Nifedipine ER) 90 Mg Tab 90 MG PO DAILY for Blood Pressure Management, #30 TAB Oyster Shell (Calcium Oyster Shell) 500 Mg Calcium (1250 Mg) Tab 500 MG PO Q12HR for Electrolyte Replacement, #60 TAB Potassium Chloride ER (Klor-Con 10) 10 Meq Tab 40 MEQ PO DAILY for Electrolyte Replacement, #30 TAB Warfarin (Coumadin) 4 Mg Tab 4 MG PO DAILY@1600 for Blood Clot Prevention for 30 Days, #30 TAB Kirk Long DO Jun 16, 2017 10:29
--- NOTE | 2017-06-16 10:59 | PD.ONC.PN ---
Subjective Subjective Remarks Afebrile overnight. Patient resting in bed in nad. Eager to go home. No complaints. Objective Data Date Time Temp Pulse Resp B/P (MAP) Pulse Ox O2 Delivery O2 Flow Rate FiO2 06/16/17 04:14 75 06/16/17 04:00 98.0 76 17 133/83 (100) 99 06/16/17 00:14 79 06/16/17 00:00 97.5 75 18 125/69 (87) 99 06/15/17 20:00 80 06/15/17 20:00 97.4 87 18 115/79 (91) 100 06/15/17 16:32 80 06/15/17 16:32 98.3 79 20 103/67 (79) 99 06/15/17 12:18 96.6 78 20 108/70 (83) 99 06/15/17 12:01 80 06/16/17 06/16/17 06/16/17 07:00 15:00 23:00 Output Total 400 ml Balance -400 ml Result Diagram: 06/16/17 0545 06/16/17 0545 Laboratory Results Laboratory Tests Test 06/16/17 05:45 White Blood Count 20.3 TH/MM3 Red Blood Count 2.89 MIL/MM3 Hemoglobin 8.5 GM/DL Hematocrit 25.9 % Mean Corpuscular Volume 89.5 FL Mean Corpuscular Hemoglobin 29.6 PG Mean Corpuscular Hemoglobin Concent 33.1 % Red Cell Distribution Width 16.5 % Platelet Count 283 TH/MM3 Mean Platelet Volume 7.3 FL Neutrophils (%) (Auto) 96.5 % Lymphocytes (%) (Auto) 2.8 % Monocytes (%) (Auto) 0.3 % Eosinophils (%) (Auto) 0.4 % Basophils (%) (Auto) 0.0 % Neutrophils # (Auto) 19.6 TH/MM3 Lymphocytes # (Auto) 0.6 TH/MM3 Monocytes # (Auto) 0.1 TH/MM3 Eosinophils # (Auto) 0.1 TH/MM3 Basophils # (Auto) 0.0 TH/MM3 CBC Comment DIFF FINAL Differential Comment Prothrombin Time 22.9 SEC Prothromb Time International Ratio 2.0 RATIO Blood Urea Nitrogen 8 MG/DL Creatinine 0.47 MG/DL Random Glucose 78 MG/DL Total Protein 4.7 GM/DL Albumin 1.8 GM/DL Calcium Level 7.3 MG/DL Alkaline Phosphatase 80 U/L Aspartate Amino Transf (AST/SGOT) 8 U/L Alanine Aminotransferase (ALT/SGPT) 17 U/L Total Bilirubin 0.4 MG/DL Sodium Level 139 MEQ/L Potassium Level 3.6 MEQ/L Chloride Level 107 MEQ/L Carbon Dioxide Level 26.8 MEQ/L Anion Gap 5 MEQ/L Estimat Glomerular Filtration Rate 230 ML/MIN Protein Corrected Calcium 8.7 MG/DL Administered Medications Medications (Trade) Dose Ordered Sig/Shyla Route PRN Reason Start Time Stop Time Status Last Admin Dose Admin Sodium Chloride (NS Flush) 2 ml UNSCH PRN IV FLUSH FLUSH AFTER USING IV ACCESS 04/18/17 17:30 06/06/17 09:18 Nifedipine (Procardia Xl) 90 mg DAILY PO 04/28/17 09:00 06/16/17 09:05 Clonidine (Catapres) 0.1 mg Q6H PRN PO SBP>160, DBP>90 04/27/17 15:00 06/15/17 04:24 Ondansetron HCl (Zofran Inj) 4 mg Q6HR PRN IV PUSH NAUSEA OR VOMITING 04/30/17 11:30 06/15/17 11:00 Promethazine HCl (Phenergan Inj) 25 mg Q6H PRN IM NAUSEA OR VOMITING 04/30/17 11:30 05/01/17 13:27 Acetaminophen/ Hydrocodone Bitart ([place] 5-325 Mg) 1 tab Q6H PRN PO PAIN SCALE 1 TO 10 04/30/17 11:30 06/12/17 23:53 Albuterol/ Ipratropium (Duoneb Neb) 1 ampule Q2HR NEB PRN INH WHEEZING 05/02/17 10:00 05/08/17 08:08 Pantoprazole Sodium (Protonix Inj) 40 mg DAILY IV PUSH 05/07/17 12:00 06/16/17 09:06 Artificial Tears (Lacrilube Opht Oint) 1 applic Q8H EACH EYE 05/07/17 18:00 06/03/17 19:02 Dronabinol (Marinol) 5 mg BID@11,16 PO 05/14/17 16:00 06/15/17 16:04 Allopurinol (Zyloprim) 300 mg DAILY PO 05/28/17 09:00 06/16/17 09:05 Magnesium Oxide (Mag-Ox) 400 mg Q12HR PO 05/28/17 09:00 06/16/17 09:05 Multi-Ingredient Ointment (Eucerin Cream) 1 applic Q6H PRN TOPICAL DRY SKIN 05/31/17 14:00 05/31/17 17:46 Heparin Sodium (Porcine) (Heparin Central Flush) 500 units UNSCH IV FLUSH 06/06/17 20:00 06/06/17 21:17 Sodium Chloride 1,000 ml @ 50 mls/hr Q20H IV 06/09/17 09:00 06/15/17 16:05 Filgrastim 300 mcg/Dextrose 25 ml @ 100 mls/hr DAILY@14 IV 06/15/17 09:00 06/15/17 14:49 Warfarin Sodium (Coumadin) 4 mg DAILY@1600 PO 06/14/17 16:00 06/15/17 16:04 Potassium Chloride (KCl) 40 meq DAILY PO 06/15/17 11:00 06/16/17 09:06 Calcium Carbonate (Oscal) 500 mg Q12HR PO 06/15/17 12:00 06/16/17 09:05 Objective Remarks GENERAL: Middle aged male upright in bed in [facility]. SKIN: Warm and dry. HEAD: Normocephalic. EYES: No injection or drainage. NECK: Supple, trachea midline. CARDIOVASCULAR: Regular rate and rhythm RESPIRATORY: Breath sounds equal bilaterally. No accessory muscle use. GASTROINTESTINAL: Abdomen soft, non-tender, nondistended. EXTREMITIES: No cyanosis NEUROLOGICAL: awake and alert, normal speech. 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 --Received Rituxan x1. --05/18-->CHOP chemotherapy -- R-EPOCH chemotherapy completed on 06/14 -- Start neupogen 06/15 (2) Pulmonary emboli ICD Codes: I26.99 - Other pulmonary embolism without acute cor pulmonale Status: Chronic Plan: --On coumadin, INR therapeutic --CTA showed large PE --s/p tpa therapy on 7.2 --INR daily Assessment 47y/o male admitted with pancreatitis, found to have NHL. Have some response to R_CHOP but the masses seems more prominent again worrisome for progression of disease. Plan 1. clear for discharge 2. follow up in clinic daily this week for Neupogen injection 3. follow up with Dr. Connelly tomorrow in clinic--patient given print out of all appointments for the next two weeks Attending Statement The exam, history, and the medical decision-making described in the above note were completed with the assistance of the mid-level provider. I reviewed and agree with the findings presented. I attest that I had a [id number] encounter with the patient on the same day, and personally performed and documented my assessment and findings in the medical record. No CP/SOB. Eager to go home. Can be d/c from oncology standpoint. F/u clinic to continue neupogen injection. Continue coumadin. Problem Qualifiers (1) Non-Hodgkin lymphoma: (2) Pulmonary emboli: Qualified Codes: I26.01 - Septic pulmonary embolism with acute cor pulmonale Brenda Platt Jun 16, 2017 10:59 Ruslan Connelly MD Jun 16, 2017 16:37
[2017-06-16] MEDS: DRONABINOL 5 MG CAP PO SCH ×2 (11:00→15:22)
[2017-06-16] MEDS: FILGRASTIM INJ 300 MCG in DEXTROSE 5% IN WATER INJ 24 ML IV SCH ×2 (13:52)
[2017-06-16] MEDS: WARFARIN SOD 4 MG TAB PO SCH (15:22)
[2017-06-16] MEDS: ACETAMINOPHEN/HYDROcodone 325 MG/5 MG TAB PO PRN (17:15)
== END 2017-06-16 19:35 | disposition home or self-care (01) | DRG 987 ==
LOC: NEPD 16:59 → NEDA 19:08 → N04B 21:01 → HOCB 04-27 19:28 → HIMW 05-02 09:05 → HOCB 05-14 23:20
PROVIDERS: ADMIT Family Medicine; ATTEND Hospitalist
PROC: 07B60ZX Excision of Left Axillary Lymphatic, Open Approach, Diagnostic (ICD-10-PCS; principal; 2017-04-22 09:03)
PROC: 07DR3ZX Extraction of Iliac Bone Marrow, Percutaneous Approach, Diagnostic (ICD-10-PCS; 2017-04-27)
PROC: 0JH63XZ Insertion of Tunneled Vascular Access Device into Chest Subcutaneous Tissue and Fascia, Percutaneous Approach (ICD-10-PCS; 2017-04-27)
PROC: 02HV33Z Insertion of Infusion Device into Superior Vena Cava, Percutaneous Approach (ICD-10-PCS; 2017-04-27)
PROC: 0W993ZX Drainage of Right Pleural Cavity, Percutaneous Approach, Diagnostic (ICD-10-PCS; 2017-04-30)
PROC: 3E04305 Introduction of Other Antineoplastic into Central Vein, Percutaneous Approach (ICD-10-PCS; 2017-05-01)
PROC: 5A1955Z Respiratory Ventilation, Greater than 96 Consecutive Hours (ICD-10-PCS; 2017-05-02)
PROC: 0BH18EZ Insertion of Endotracheal Airway into Trachea, Via Natural or Artificial Opening Endoscopic (ICD-10-PCS; 2017-05-02)
PROC: 3E03317 Introduction of Other Thrombolytic into Peripheral Vein, Percutaneous Approach (ICD-10-PCS; 2017-05-02)
PROC: 05HN33Z Insertion of Infusion Device into Left Internal Jugular Vein, Percutaneous Approach (ICD-10-PCS; 2017-05-06)
PROC: 5A1D60Z (ICD-10-PCS; 2017-05-06)
PROC: 02HV33Z Insertion of Infusion Device into Superior Vena Cava, Percutaneous Approach (ICD-10-PCS; 2017-05-15)
DX: K85.90 Acute pancreatitis without necrosis or infection, unspecified (principal); J96.01 Acute respiratory failure with hypoxia; R57.0 Cardiogenic shock; I26.99 Other pulmonary embolism without acute cor pulmonale; E43 Unspecified severe protein-calorie malnutrition; J90 Pleural effusion, not elsewhere classified; J18.9 Pneumonia, unspecified organism; A04.7 Enterocolitis due to Clostridium difficile; N17.9 Acute kidney failure, unspecified; C83.38 Diffuse large B-cell lymphoma, lymph nodes of multiple sites; N39.0 Urinary tract infection, site not specified; Z68.1 Body mass index [BMI] 19.9 or less, adult; K56.7 Ileus, unspecified; Q21.1 Atrial septal defect; E86.0 Dehydration; E87.6 Hypokalemia; E83.42 Hypomagnesemia; E83.39 Other disorders of phosphorus metabolism; R73.9 Hyperglycemia, unspecified; F54 Psychological and behavioral factors associated with disorders or diseases classified elsewhere; D63.8 Anemia in other chronic diseases classified elsewhere; E83.51 Hypocalcemia; I10 Essential (primary) hypertension; D72.819 Decreased white blood cell count, unspecified; I51.89 Other ill-defined heart diseases; L98.8 Other specified disorders of the skin and subcutaneous tissue; I07.1 Rheumatic tricuspid insufficiency; K21.9 Gastro-esophageal reflux disease without esophagitis; Z87.891 Personal history of nicotine dependence; Z23 Encounter for immunization
CPT/HCPCS: 31500; 32555; 36430; 36556; 36561; 36600; 38221; 70450; 71010; 71250; 71275; 74000; 74150; 74176; 76705; 76775; 76937; 77001; 77012; 80048; 80053; 80069; 80074; 80076; 81001; 82140; 82150; 82465; 82728; 82805; 82945; 82948; 83036; 83540; 83550; 83615; 83690; 83735; 83880; 83935; 84100; 84132; 84155; 84157; 84300; 84439; 84443; 84484; 84550; 85007; 85014; 85018; 85025; 85027; 85097; 85610; 85730; 86850; 86900; 86901; 86920; 87015; 87040; 87070; 87086; 87102; 87106; 87116; 87186; 87205; 87206; 87493; 87536; 87641; 88184; 88185; 88230; 88237; 88264; 88280; 88305; 88307; 88311; 88313; 88341; 88342; 88377; 89051; 90732; 90935; 93306; 93308; 93971; 94002; 94003; 94150; 94640; 94664; 94799; 96374; 96375; 99152; C1729; C1752; C1769; C1788; C1830; C1887; C9113; J0171; J0360; J0610; J0690; J0692; J0696; J1100; J1325; J1442; J1580; J1626; J1642; J1644; J1650; J1940; J2250; J2270; J2370; J2405; J2550; J2765; J2997; J3010; J3370; J3475; J3480; J7030; J7040; J7042; J7050; J7060; J7512; J7613; J9000; J9070; J9181; J9310; J9370; P9016; Q0163; Q4081; Q9963; Q9967

== ENCOUNTER 2017-06-08 08:48 | Inpatient (IN) | payer OTHER ==
[~2017-06-08] VITALS: Ht 188 cm; Wt 59.6 kg
[~2017-06-08 08:48] MED LIST: ALLO300 PO; DRON5CAP PO; NIFE90TA2 PO
[2017-06-16] MEDS ORDERED: ARTI3.5O EACH EYE (10:08)
[2017-06-16] MEDS ORDERED: MAGN400T3 PO (10:08)
[2017-06-16] MEDS ORDERED: VENTAER INH (10:08)
[2017-06-16] MEDS ORDERED: COMMODE 3-IN-11 MIS (10:08)
[2017-06-16] MEDS ORDERED: PROT40TA PO (10:08)
[2017-06-16] MEDS ORDERED: COUM4TAB PO (10:08)
[2017-06-16] MEDS ORDERED: POTA-243 PO (10:08)
[2017-06-16] MEDS ORDERED: WALKER WHEELS/F1 MIS (10:08)
[2017-06-16] MEDS ORDERED: CALC500T30 PO (10:08)
[2017-06-16] MEDS ORDERED: HYDR-3516 PO (10:08)
[2017-06-30 08:37] VITALS: BP 169/96; PULSE 78; RESP 18; TEMP 98.1; O2SAT 97
[2017-06-30] MEDS: ALLOPURINOL 300 MG TAB PO SCH (09:00)
[2017-06-30] MEDS: SODIUM CHLORIDE 0.9% FLUSH 10 ML FLUSH IVF SCH (09:00)
[2017-06-30] MEDS: SODIUM CHLORIDE 0.9% FLUSH 10 ML FLUSH IVF PRN (09:33)
[2017-06-30 10:19] LABS: AUTOMATED NEUTROPHIL # 9.2 TH/MM3 (1.8-7.7); BASOPHIL % 0.4 % (0.0-2.0); EOSINOPHIL % 0.1 % (0.0-4.0); HEMO FLAGS DIFF FINAL; LYMPH % 6.2 % (9.0-44.0); LYMPHOCYTE # 0.6 TH/MM3 (1.0-4.8); MEAN CELL VOLUME 88.2 FL (80.0-100.0); MEAN CORPUSCULAR HEMOGLOBIN 29.2 PG (27.0-34.0); MEAN CORPUSCULAR HGB CONC 33.1 % (32.0-36.0); MONO % 5.4 % (0.0-8.0); NEUT % 87.9 % (16.0-70.0); PLATELET COUNT 362 TH/MM3 (150-450); RED BLOOD COUNT 2.95 MIL/MM3 (4.50-5.90); RED CELL DISTRIBUTION WIDTH 16.2 % (11.6-17.2); WHITE BLOOD COUNT 10.5 TH/MM3 (4.0-11.0)
[2017-06-30 10:44] LABS: ALT (GPT) 12 U/L (12-78); ANION GAP 9 MEQ/L (5-15); AST (GOT) 11 U/L (15-37); BICARBONATE 26.5 MEQ/L (21.0-32.0); BLOOD UREA NITROGEN 6 MG/DL (7-18); CHLORIDE 103 MEQ/L (98-107); GLOMERULAR FILTRATION RATE 177 ML/MIN (>89); MAGNESIUM 1.2 MG/DL (1.5-2.5); SODIUM (NA) 138 MEQ/L (136-145); URIC ACID 3.3 MG/DL (2.6-7.2)
[2017-06-30] MEDS ORDERED: PANTOPRAZOLE SOD 20 MG DELAYED RELEASE TAB PO ONE (10:45)
[2017-06-30 10:47] LABS: ALKALINE PHOSPHATASE 96 U/L (45-117); LDH SERUM 452 U/L (87-241); TOTAL BILIRUBIN ADULT 0.3 MG/DL (0.2-1.0)
[2017-06-30 10:49] LABS: POTASSIUM 2.8 MEQ/L (3.5-5.1)
[2017-06-30] MEDS ORDERED: POTASSIUM CHLORIDE 20 MEQ CONTROLLED RELEASE TAB PO ONE (11:00)
[2017-06-30] MEDS: SODIUM CHLOR 0.9% 1000 ML INJ 1,000 ML IV SCH (11:30)
[2017-06-30] MEDS: MAGNESIUM OXIDE 400 MG TAB PO SCH ×2 (11:58→21:29)
[2017-06-30 12:51] VITALS: BP 153/88; PULSE 80; RESP 18; TEMP 98.9; O2SAT 98
[2017-06-30] MEDS ORDERED: DEXAMETHASONE SOD PHOS 20 MG/5 ML VIAL IV SCH (15:30)
[2017-06-30] MEDS: GRANISETRON HCL 1 MG/ML VIAL IV SCH (15:44)
[2017-06-30] MEDS: predniSONE 5 MG TAB PO SCH (15:44)
[2017-06-30] MEDS: predniSONE 1 MG TAB PO SCH (15:44)
[2017-06-30] MEDS: predniSONE 50 MG TAB PO SCH (15:44)
[2017-06-30] MEDS: WARFARIN SOD 4 MG TAB PO SCH (15:45)
[2017-06-30 16:00] VITALS: BP 170/91; PULSE 84; RESP 18; TEMP 100; O2SAT 99
[2017-06-30] MEDS: VINCRISTINE IV SCH (16:31)
[2017-06-30] MEDS: ETOPOSIDE IV SCH (16:31)
[2017-06-30] MEDS: DOXORUBICIN IV SCH (16:31)
[2017-06-30] MEDS: [UNRECOGNIZED DRUG - OTHER] IV SCH (16:31)
[2017-06-30 20:00] VITALS: BP 157/90; PULSE 82; RESP 18; TEMP 98.2; O2SAT 100
[2017-06-30] MEDS: POTASSIUM CHLORIDE 10 MEQ CONTROLLED RELEASE TAB PO SCH (21:30)
[2017-07-01] VITALS (7 sets, daily range): BP systolic 108–181; BP diastolic 63–105; PULSE 73–82; RESP 18–20; TEMP 96.3–96.7; O2SAT 100
[2017-07-01] MEDS ORDERED: cloNIDine HCL 0.1 MG TAB PO PRN ×2 (03:30→08:45)
[2017-07-01] MEDS: predniSONE 1 MG TAB PO SCH ×2 (03:37→17:19)
[2017-07-01] MEDS: predniSONE 5 MG TAB PO SCH ×2 (03:37→17:19)
[2017-07-01] MEDS: predniSONE 50 MG TAB PO SCH ×2 (03:37→17:19)
[2017-07-01] MEDS: SODIUM CHLOR 0.9% 1000 ML INJ 1,000 ML IV SCH (05:09)
[2017-07-01 06:15] LABS: AUTOMATED NEUTROPHIL # 5.9 TH/MM3 (1.8-7.7); BASOPHIL % 0.1 % (0.0-2.0); HEMATOCRIT 27.7 % (39.0-51.0); HEMO FLAGS DIFF FINAL; LYMPH % 5.6 % (9.0-44.0); LYMPHOCYTE # 0.4 TH/MM3 (1.0-4.8); MEAN CELL VOLUME 88.7 FL (80.0-100.0); MEAN CORPUSCULAR HEMOGLOBIN 29.5 PG (27.0-34.0); MEAN CORPUSCULAR HGB CONC 33.2 % (32.0-36.0); MONO % 1.9 % (0.0-8.0); NEUT % 92.4 % (16.0-70.0); PLATELET COUNT 377 TH/MM3 (150-450); RED BLOOD COUNT 3.12 MIL/MM3 (4.50-5.90); RED CELL DISTRIBUTION WIDTH 16.2 % (11.6-17.2); WHITE BLOOD COUNT 6.4 TH/MM3 (4.0-11.0)
[2017-07-01 06:24] LABS: INTERNATIONAL NORMALIZED RATIO 2.8 RATIO; PROTHROMBIN TIME - PATIENT 32.7 SEC (9.8-11.6)
[2017-07-01 06:53] LABS: ALKALINE PHOSPHATASE 98 U/L (45-117); ALT (GPT) 10 U/L (12-78); ANION GAP 7 MEQ/L (5-15); AST (GOT) 9 U/L (15-37); BICARBONATE 26.7 MEQ/L (21.0-32.0); BLOOD UREA NITROGEN 7 MG/DL (7-18); CHLORIDE 102 MEQ/L (98-107); GLOMERULAR FILTRATION RATE 167 ML/MIN (>89); LDH SERUM 327 U/L (87-241); MAGNESIUM 1.3 MG/DL (1.5-2.5); POTASSIUM 3.7 MEQ/L (3.5-5.1); SODIUM (NA) 136 MEQ/L (136-145); TOTAL BILIRUBIN ADULT 0.3 MG/DL (0.2-1.0); URIC ACID 3.3 MG/DL (2.6-7.2)
[2017-07-01] MEDS: POTASSIUM CHLORIDE 10 MEQ CONTROLLED RELEASE TAB PO SCH (09:01)
[2017-07-01] MEDS: PANTOPRAZOLE SOD 40 MG DELAYED RELEASE TAB PO SCH (09:01)
[2017-07-01] MEDS: MAGNESIUM OXIDE 400 MG TAB PO SCH ×2 (09:01→22:48)
[2017-07-01] MEDS: LISINOPRIL 5 MG TAB PO SCH (09:01)
[2017-07-01] MEDS: ALLOPURINOL 300 MG TAB PO SCH (09:01)
[2017-07-01] MEDS: NIFEdipine 90 MG SUSTAINED RELEASE TAB PO SCH (09:02)
[2017-07-01] MEDS: SODIUM CHLORIDE 0.9% FLUSH 10 ML FLUSH IVF SCH (09:02)
--- NOTE | 2017-07-01 11:23 | PD.ONC.PN ---
Subjective Subjective Remarks Afebrile overnight. Patient had drenching sweats overnight while receiving chemotherapy. No pain or nausea. No vomiting. Eating well. Objective Data Date Time Temp Pulse Resp B/P (MAP) Pulse Ox O2 Delivery O2 Flow Rate FiO2 07/01/17 07:30 96.3 73 20 177/101 (126) 100 07/01/17 05:30 96.3 73 19 175/105 (128) 100 07/01/17 04:00 96.3 77 18 181/103 (129) 100 07/01/17 00:40 96.4 76 18 160/104 (122) 100 06/30/17 20:00 98.2 82 18 157/90 (112) 100 06/30/17 16:00 100.0 84 18 170/91 (117) 99 06/30/17 12:51 98.9 80 18 153/88 (109) 98 07/01/17 07/01/17 07/01/17 07:00 15:00 23:00 Intake Total 240 ml Output Total 600 ml Balance -360 ml Result Diagram: 07/01/17 0510 07/01/17 0510 Laboratory Results Laboratory Tests Test 07/01/17 05:10 White Blood Count 6.4 TH/MM3 Red Blood Count 3.12 MIL/MM3 Hemoglobin 9.2 GM/DL Hematocrit 27.7 % Mean Corpuscular Volume 88.7 FL Mean Corpuscular Hemoglobin 29.5 PG Mean Corpuscular Hemoglobin Concent 33.2 % Red Cell Distribution Width 16.2 % Platelet Count 377 TH/MM3 Mean Platelet Volume 7.2 FL Neutrophils (%) (Auto) 92.4 % Lymphocytes (%) (Auto) 5.6 % Monocytes (%) (Auto) 1.9 % Eosinophils (%) (Auto) 0.0 % Basophils (%) (Auto) 0.1 % Neutrophils # (Auto) 5.9 TH/MM3 Lymphocytes # (Auto) 0.4 TH/MM3 Monocytes # (Auto) 0.1 TH/MM3 Eosinophils # (Auto) 0.0 TH/MM3 Basophils # (Auto) 0.0 TH/MM3 CBC Comment DIFF FINAL Differential Comment Prothrombin Time 32.7 SEC Prothromb Time International Ratio 2.8 RATIO Blood Urea Nitrogen 7 MG/DL Creatinine 0.62 MG/DL Random Glucose 141 MG/DL Total Protein 6.2 GM/DL Albumin 2.3 GM/DL Calcium Level 8.5 MG/DL Magnesium Level 1.3 MG/DL Uric Acid 3.3 MG/DL Alkaline Phosphatase 98 U/L Aspartate Amino Transf (AST/SGOT) 9 U/L Alanine Aminotransferase (ALT/SGPT) 10 U/L Lactate Dehydrogenase 327 U/L Total Bilirubin 0.3 MG/DL Sodium Level 136 MEQ/L Potassium Level 3.7 MEQ/L Chloride Level 102 MEQ/L Carbon Dioxide Level 26.7 MEQ/L Anion Gap 7 MEQ/L Estimat Glomerular Filtration Rate 167 ML/MIN Administered Medications Medications (Trade) Dose Ordered Sig/Shyla Route PRN Reason Start Time Stop Time Status Last Admin Dose Admin Sodium Chloride (NS Flush) DAILY IVF 06/30/17 09:00 07/01/17 09:02 Sodium Chloride (NS Flush) UNSCH PRN IVF SEE PROTOCOL 06/30/17 08:45 06/30/17 09:33 Allopurinol (Zyloprim) 300 mg DAILY PO 06/30/17 09:00 07/01/17 09:01 Warfarin Sodium (Coumadin) 4 mg DAILY@16 PO 06/30/17 16:00 06/30/17 15:45 Nifedipine (Procardia Xl) 90 mg DAILY PO 07/01/17 09:00 07/01/17 09:02 Pantoprazole Sodium (Protonix) 40 mg DAILY PO 07/01/17 09:00 07/01/17 09:01 Sodium Chloride 1,000 ml @ 50 mls/hr Q20H IV 06/30/17 11:00 07/01/17 05:09 Potassium Chloride (KCl) 30 meq Q12HR PO 06/30/17 21:00 07/01/17 09:01 Magnesium Oxide (Mag-Ox) 400 mg Q12HR PO 06/30/17 11:00 07/01/17 09:01 Granisetron HCl (Kytril Inj) 1 mg Q24H IV 06/30/17 15:30 07/04/17 15:31 06/30/17 15:44 Etoposide 90 mg/ Doxorubicin HCl 18 mg/Vincristine Sulfate 0.72 mg/ Sodium Chloride 514.22 ml @ 21.426 mls/hr Q24H IV 06/30/17 16:00 07/04/17 15:59 06/30/17 16:31 Prednisone (Deltasone) 100 mg Q12H PO 06/30/17 16:00 07/05/17 04:01 07/01/17 03:37 Prednisone (Deltasone) 5 mg Q12H PO 06/30/17 16:00 07/05/17 04:01 07/01/17 03:37 Prednisone (Deltasone) 3 mg Q12H PO 06/30/17 16:00 07/05/17 04:01 07/01/17 03:37 Lisinopril (Prinivil) 5 mg DAILY PO 07/01/17 09:00 07/01/17 09:01 Objective Remarks GENERAL: Middle aged male sitting up in bed in nad. SKIN: Warm and dry. HEAD: Normocephalic. EYES: No injection or drainage. NECK: Supple, trachea midline CARDIOVASCULAR: Regular rate and rhythm RESPIRATORY: Breath sounds equal bilaterally. No accessory muscle use. GASTROINTESTINAL: Abdomen soft, non-tender, nondistended. EXTREMITIES: No cyanosis NEUROLOGICAL: awake and alert, normal speech. 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 --05/18-->R-CHOP chemotherapy --06/08--> R-EPOCH chemotherapy completed on 06/14 --06/29-->R-EPOCH (2) Pulmonary emboli ICD Codes: I26.99 - Other pulmonary embolism without acute cor pulmonale Status: Chronic Plan: --on warfarin (3) Hypertension ICD Codes: I10 - Essential (primary) hypertension Plan: --Currently on Nifedipine 90mg daily --start on 07/01 Lisinopril 5mg PO daily, may need to titrate up to 10mg tomorrow. 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 Plan 1. continue EPOCH chemotherapy 2. stop Decadron IV 3. start Lisinopril for blood pressure, titrate up as needed 4. add PRN clonidine Attending Statement The exam, history, and the medical decision-making described in the above note were completed with the assistance of the mid-level provider. I reviewed and agree with the findings presented. I attest that I had a [id number] encounter with the patient on the same day, and personally performed and documented my assessment and findings in the medical record.BP elevated. Add new BP agent. Tolerating chemo, continue chemo per protocol. Problem Qualifiers (1) Non-Hodgkin lymphoma: Qualified Codes: C83.38 - Diffuse large b-cell lymphoma, lymph nodes of multiple sites (2) Pulmonary emboli: (3) Hypertension: Qualified Codes: I10 - Essential (primary) hypertension Brenda Platt Jul 01, 2017 11:23 Ruslan Connelly MD Jul 01, 2017 16:25
--- NOTE | 2017-07-01 17:03 | MH ---
cc: SHADY MAYORGA M.D. 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 HISTORY OF PRESENT ILLNESS The patient is a 47-year-old male admitted to the hospital early April with abdominal pain. CT showed extensive mediastinal cervical, and bilateral axillary adenopathy. He has extensive mesenteric and retroperitoneal adenopathy. Excisional biopsy of the left axillary lymph node showed diffuse large B-cell lymphoma with triple HIT. He was given one cycle of rituximab and CHOP, at reduced dose, because at that time he had sepsis and renal failure on dialysis. He had eventually recovered and received cycle two of rituxan, epoch three weeks ago. He tolerated it very well. He seems to have a response. His performance status improved. He is now walking independently. He is eating better. He denies any fever or chills. His weight has stabilized. No chest pain, palpitations, no shortness of breath, cough, nausea, vomiting. Denies abdominal pain, change in bowel habits. He denies any focal numbness or weakness. PAST MEDICAL HISTORY: 1. High grade lymphoma. 2. Hypertension. 3. Pulmonary embolism. 4. Renal failure treated with temporary dialysis. PAST SURGICAL HISTORY: 1. Bone marrow aspirate and biopsy. 2. Left axillary lymph node resection. 3. Port placement. 4. Dialysis catheter placement and removal. FAMILY HISTORY: He has five brothers, all alive. Three sisters, all healthy. SOCIAL HISTORY: He stopped smoking about 3 months ago. He also stopped drinking. ALLERGIES: NO KNOWN DRUG ALLERGIES. OUTPATIENT MEDICATIONS: 1. Coumadin 4 milligrams daily. 2. Allopurinol 300 milligrams p.o. daily 3. Nifedipine one daily. 4. Protonix REVIEW OF SYSTEMS Constitutional: As above. Eyes: Negative. ENT: Negative. Cardiovascular: No chest pressure, palpitations. Respiratory: No shortness of breath, cough. GI: Negative. : Negative. Musculoskeletal: Negative. Hematology: Negative. Endocrine: Negative. Dermatology: Negative. Psychiatric: Negative. Neurologic: Negative. PHYSICAL EXAMINATION VITAL SIGNS: Temperature 98.1, blood pressure 169/96. O2 saturation 97% on room air. General: He is alert and oriented x3 in no acute distress. HEENT: Atraumatic, normocephalic. Pupils equal, round and reactive to light. Extraocular muscles intact. No scleral icterus. Oropharynx: dry mucosa. No lesion, no thrush. Neck: No thyromegaly. The right supraclavicular mass has significantly decreased in size. The left axillary lymph node also has significantly decreased in size. I could not palpate inguinal lymph node. Cardiovascular: Regular S1-S2 normal. Lungs: Clear to auscultation, bilaterally wheezing or rhonchi. Abdomen: Soft, nontender. I could not palpate liver or spleen. Extremities: No cyanosis, clubbing or edema. Back: No paravertebral tenderness. Skin: No rash or petechiae. Neurologic: Nonfocal. LABORATORY DATA: Reviewed. ASSESSMENT: 1. 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 showed diffuse adenopathy in bilateral axilla, supraclavicular area, mediastinum, retroperitoneum. Bone marrow biopsy was not involved. Clinically stage III. He had one course of reduced dose rituxan/CHOP, followed by full dose rituxan and EPOCH. He appeared to have good response. His adenopathy has improved. His blood count has recovered. He is admitted for cycle 2 of rituxan, epoch. I have talked to the family about consolidation bone marrow transplant but they are not interested. 2. Recent pulmonary embolism. He had massive pulmonary embolism during his last hospital stay. He had TPA. He had temporary IVC filter placement and subsequent removal. He is now on Coumadin. His INR is therapeutic. He has no pulmonary symptoms at this time. 3. Pleural effusion status post thoracentesis, right lung. Pleural effusion has not reaccumulated. 4. History of renal failure requiring temporary dialysis. Renal function is back to normal. PLAN: Arrange to start cycle two of epoch per protocol. Continue Coumadin. Continue allopurinol Monitor labs. Shady Mayorga MD [facility] /5:47 PM /4:10 PM [facility]
[2017-07-01] MEDS: WARFARIN SOD 4 MG TAB PO SCH (17:20)
[2017-07-01] MEDS: GRANISETRON HCL 1 MG/ML VIAL IV SCH (22:48)
[2017-07-01] MEDS: [UNRECOGNIZED DRUG - OTHER] IV SCH (23:35)
[2017-07-01] MEDS: VINCRISTINE IV SCH (23:35)
[2017-07-01] MEDS: DOXORUBICIN IV SCH (23:35)
[2017-07-01] MEDS: ETOPOSIDE IV SCH (23:35)
[2017-07-02] VITALS: BP 128/80; PULSE 75; RESP 18; TEMP 97.3; O2SAT 100
[2017-07-02 04:00] VITALS: BP 134/74; PULSE 65; RESP 16; TEMP 96.9; O2SAT 100
[2017-07-02] MEDS: predniSONE 1 MG TAB PO SCH ×2 (04:09→16:41)
[2017-07-02] MEDS: predniSONE 50 MG TAB PO SCH ×2 (04:09→16:40)
[2017-07-02] MEDS: predniSONE 5 MG TAB PO SCH ×2 (04:09→16:40)
[2017-07-02] MEDS: SODIUM CHLOR 0.9% 1000 ML INJ 1,000 ML IV SCH (04:10)
[2017-07-02 06:41] LABS: INTERNATIONAL NORMALIZED RATIO 4.3 RATIO; PROTHROMBIN TIME - PATIENT 50.3 SEC (9.8-11.6)
[2017-07-02 06:48] LABS: AUTOMATED NEUTROPHIL # 9.1 TH/MM3 (1.8-7.7); BASOPHIL % 0.1 % (0.0-2.0); HEMATOCRIT 28.9 % (39.0-51.0); HEMO FLAGS DIFF FINAL; LYMPH % 4.4 % (9.0-44.0); LYMPHOCYTE # 0.4 TH/MM3 (1.0-4.8); MEAN CELL VOLUME 88.1 FL (80.0-100.0); MEAN CORPUSCULAR HEMOGLOBIN 29.3 PG (27.0-34.0); MEAN CORPUSCULAR HGB CONC 33.2 % (32.0-36.0); MONO % 2.4 % (0.0-8.0); NEUT % 93.1 % (16.0-70.0); PLATELET COUNT 443 TH/MM3 (150-450); RED BLOOD COUNT 3.28 MIL/MM3 (4.50-5.90); RED CELL DISTRIBUTION WIDTH 16.4 % (11.6-17.2); WHITE BLOOD COUNT 9.8 TH/MM3 (4.0-11.0)
[2017-07-02 07:06] LABS: ALT (GPT) 12 U/L (12-78); ANION GAP 6 MEQ/L (5-15); AST (GOT) 7 U/L (15-37); BICARBONATE 26.9 MEQ/L (21.0-32.0); BLOOD UREA NITROGEN 8 MG/DL (7-18); CHLORIDE 104 MEQ/L (98-107); GLOMERULAR FILTRATION RATE 269 ML/MIN (>89); LDH SERUM 233 U/L (87-241); MAGNESIUM 1.6 MG/DL (1.5-2.5); POTASSIUM 4.1 MEQ/L (3.5-5.1); SODIUM (NA) 137 MEQ/L (136-145); URIC ACID 2.7 MG/DL (2.6-7.2)
[2017-07-02 07:07] LABS: ALKALINE PHOSPHATASE 90 U/L (45-117); TOTAL BILIRUBIN ADULT 0.2 MG/DL (0.2-1.0)
[2017-07-02 07:50] VITALS: BP 140/93; PULSE 67; RESP 20; TEMP 96.1; O2SAT 100
[2017-07-02] MEDS: PANTOPRAZOLE SOD 40 MG DELAYED RELEASE TAB PO SCH (09:00)
[2017-07-02] MEDS: SODIUM CHLORIDE 0.9% FLUSH 10 ML FLUSH IVF SCH (09:00)
[2017-07-02] MEDS: LISINOPRIL 5 MG TAB PO SCH (09:00)
[2017-07-02] MEDS: NIFEdipine 90 MG SUSTAINED RELEASE TAB PO SCH (09:00)
[2017-07-02] MEDS: ALLOPURINOL 300 MG TAB PO SCH (09:00)
[2017-07-02] MEDS: MAGNESIUM OXIDE 400 MG TAB PO SCH ×2 (09:01→20:08)
[2017-07-02] MEDS ORDERED: PNEUMOCOCCAL POLYVALENT INJ 25 MCG/0.5 ML SYR IM ONE (10:00)
--- NOTE | 2017-07-02 11:11 | PD.ONC.PN ---
Subjective Subjective Remarks Afebrile overnight. Patient resting in bed in nad. No complaints. Had some light sweating last night, but was not as bad as previously. Objective Data Date Time Temp Pulse Resp B/P (MAP) Pulse Ox O2 Delivery O2 Flow Rate FiO2 07/02/17 07:50 96.1 67 20 140/93 (109) 100 07/02/17 04:00 96.9 65 16 134/74 (94) 100 07/02/17 00:00 97.3 75 18 128/80 (96) 100 07/01/17 20:00 96.7 80 18 127/75 (92) 100 07/01/17 15:50 96.5 82 20 108/63 (78) 100 07/01/17 11:50 96.3 80 20 117/73 (88) 100 07/02/17 07/02/17 07/02/17 07:00 15:00 23:00 Intake Total 480 ml Output Total 800 ml Balance -320 ml Result Diagram: 07/02/17 0550 07/02/17 0550 Laboratory Results Laboratory Tests Test 07/02/17 05:50 White Blood Count 9.8 TH/MM3 Red Blood Count 3.28 MIL/MM3 Hemoglobin 9.6 GM/DL Hematocrit 28.9 % Mean Corpuscular Volume 88.1 FL Mean Corpuscular Hemoglobin 29.3 PG Mean Corpuscular Hemoglobin Concent 33.2 % Red Cell Distribution Width 16.4 % Platelet Count 443 TH/MM3 Mean Platelet Volume 7.1 FL Neutrophils (%) (Auto) 93.1 % Lymphocytes (%) (Auto) 4.4 % Monocytes (%) (Auto) 2.4 % Eosinophils (%) (Auto) 0.0 % Basophils (%) (Auto) 0.1 % Neutrophils # (Auto) 9.1 TH/MM3 Lymphocytes # (Auto) 0.4 TH/MM3 Monocytes # (Auto) 0.2 TH/MM3 Eosinophils # (Auto) 0.0 TH/MM3 Basophils # (Auto) 0.0 TH/MM3 CBC Comment DIFF FINAL Differential Comment Prothrombin Time 50.3 SEC Prothromb Time International Ratio 4.3 RATIO Blood Urea Nitrogen 8 MG/DL Creatinine 0.41 MG/DL Random Glucose 116 MG/DL Total Protein 6.2 GM/DL Albumin 2.1 GM/DL Calcium Level 8.4 MG/DL Magnesium Level 1.6 MG/DL Uric Acid 2.7 MG/DL Alkaline Phosphatase 90 U/L Aspartate Amino Transf (AST/SGOT) 7 U/L Alanine Aminotransferase (ALT/SGPT) 12 U/L Lactate Dehydrogenase 233 U/L Total Bilirubin 0.2 MG/DL Sodium Level 137 MEQ/L Potassium Level 4.1 MEQ/L Chloride Level 104 MEQ/L Carbon Dioxide Level 26.9 MEQ/L Anion Gap 6 MEQ/L Estimat Glomerular Filtration Rate 269 ML/MIN Administered Medications Medications (Trade) Dose Ordered Sig/Shyla Route PRN Reason Start Time Stop Time Status Last Admin Dose Admin Sodium Chloride (NS Flush) DAILY IVF 06/30/17 09:00 07/01/17 09:02 Sodium Chloride (NS Flush) UNSCH PRN IVF SEE PROTOCOL 06/30/17 08:45 06/30/17 09:33 Allopurinol (Zyloprim) 300 mg DAILY PO 06/30/17 09:00 07/02/17 09:00 Warfarin Sodium (Coumadin) 4 mg DAILY@16 PO 06/30/17 16:00 07/01/17 17:20 Nifedipine (Procardia Xl) 90 mg DAILY PO 07/01/17 09:00 07/02/17 09:00 Pantoprazole Sodium (Protonix) 40 mg DAILY PO 07/01/17 09:00 07/02/17 09:00 Sodium Chloride 1,000 ml @ 50 mls/hr Q20H IV 06/30/17 11:00 07/02/17 04:10 Magnesium Oxide (Mag-Ox) 400 mg Q12HR PO 06/30/17 11:00 07/02/17 09:01 Granisetron HCl (Kytril Inj) 1 mg Q24H IV 06/30/17 15:30 07/04/17 15:31 07/01/17 22:48 Etoposide 90 mg/ Doxorubicin HCl 18 mg/Vincristine Sulfate 0.72 mg/ Sodium Chloride 514.22 ml @ 21.426 mls/hr Q24H IV 06/30/17 16:00 07/04/17 15:59 07/01/17 23:35 Prednisone (Deltasone) 100 mg Q12H PO 06/30/17 16:00 07/05/17 04:01 07/02/17 04:09 Prednisone (Deltasone) 5 mg Q12H PO 06/30/17 16:00 07/05/17 04:01 07/02/17 04:09 Prednisone (Deltasone) 3 mg Q12H PO 06/30/17 16:00 07/05/17 04:01 07/02/17 04:09 Lisinopril (Prinivil) 5 mg DAILY PO 07/01/17 09:00 07/02/17 09:00 Objective Remarks GENERAL: Middle aged male upright in bed in nad. SKIN: Warm and dry. HEAD: Normocephalic. EYES: No injection or drainage. NECK: Supple, trachea midline. CARDIOVASCULAR: Regular rate and rhythm RESPIRATORY: Breath sounds equal bilaterally. No accessory muscle use. GASTROINTESTINAL: Abdomen soft, non-tender, nondistended. EXTREMITIES: No cyanosis MUSCULOSKELETAL: Adequate muscle tone. NEUROLOGICAL: awake and alert, normal speech. 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 Plan 1. continue EPOCH chemotherapy 2. monitor labs 3. supportive care, IVF 4. hold coumadin today for INR >4. Attending Statement The exam, history, and the medical decision-making described in the above note were completed with the assistance of the mid-level provider. I reviewed and agree with the findings presented. I attest that I had a [id number] encounter with the patient on the same day, and personally performed and documented my assessment and findings in the medical record. No new c/o, tolerating chemo. BP controlled. Continue EPOCH. Titrate coumadin. Problem Qualifiers (1) Non-Hodgkin lymphoma: Qualified Codes: C83.38 - Diffuse large b-cell lymphoma, lymph nodes of multiple sites (2) Pulmonary emboli: (3) Hypertension: Qualified Codes: I10 - Essential (primary) hypertension Brenda Platt Jul 02, 2017 11:09 Ruslan Connelly MD Jul 02, 2017 11:15
[2017-07-02 11:50] VITALS: BP 138/93; PULSE 76; RESP 20; TEMP 96.7; O2SAT 100
[2017-07-02 15:50] VITALS: BP 116/63; PULSE 77; RESP 20; TEMP 96.7; O2SAT 100
[2017-07-02 20:00] VITALS: BP 123/88; PULSE 55; RESP 16; TEMP 97.3; O2SAT 100
[2017-07-03] VITALS: BP 124/78; PULSE 75; RESP 18; TEMP 96.9; O2SAT 100
[2017-07-03 04:00] VITALS: BP 165/88; PULSE 73; RESP 18; TEMP 96; O2SAT 98
[2017-07-03] MEDS: predniSONE 5 MG TAB PO SCH ×2 (04:05→15:56)
[2017-07-03] MEDS: predniSONE 1 MG TAB PO SCH ×2 (04:05→15:56)
[2017-07-03] MEDS: predniSONE 50 MG TAB PO SCH ×2 (04:06→15:56)
[2017-07-03] MEDS: GRANISETRON HCL 1 MG/ML VIAL IV SCH (04:12)
[2017-07-03] MEDS: [UNRECOGNIZED DRUG - OTHER] IV SCH (04:49)
[2017-07-03] MEDS: ETOPOSIDE IV SCH (04:49)
[2017-07-03] MEDS: VINCRISTINE IV SCH (04:49)
[2017-07-03] MEDS: DOXORUBICIN IV SCH (04:49)
[2017-07-03] MEDS: SODIUM CHLOR 0.9% 1000 ML INJ 1,000 ML IV SCH (04:59)
[2017-07-03 06:43] LABS: AUTOMATED NEUTROPHIL # 14.7 TH/MM3 (1.8-7.7); BASOPHIL % 0.1 % (0.0-2.0); HEMATOCRIT 29.6 % (39.0-51.0); LYMPH % 2.2 % (9.0-44.0); LYMPHOCYTE # 0.3 TH/MM3 (1.0-4.8); MEAN CELL VOLUME 89.2 FL (80.0-100.0); MEAN CORPUSCULAR HEMOGLOBIN 28.8 PG (27.0-34.0); MEAN CORPUSCULAR HGB CONC 32.3 % (32.0-36.0); MONO % 1.7 % (0.0-8.0); PLATELET COUNT 467 TH/MM3 (150-450); RED BLOOD COUNT 3.32 MIL/MM3 (4.50-5.90); RED CELL DISTRIBUTION WIDTH 16.2 % (11.6-17.2); WHITE BLOOD COUNT 15.3 TH/MM3 (4.0-11.0)
[2017-07-03 06:45] LABS: INTERNATIONAL NORMALIZED RATIO 3.7 RATIO; PROTHROMBIN TIME - PATIENT 43.5 SEC (9.8-11.6)
[2017-07-03 06:52] LABS: HEMO FLAGS AUTO DIFF
[2017-07-03 06:59] LABS: ALT (GPT) 15 U/L (12-78); ANION GAP 8 MEQ/L (5-15); AST (GOT) 8 U/L (15-37); BICARBONATE 26.6 MEQ/L (21.0-32.0); BLOOD UREA NITROGEN 10 MG/DL (7-18); CHLORIDE 105 MEQ/L (98-107); GLOMERULAR FILTRATION RATE 196 ML/MIN (>89); MAGNESIUM 1.5 MG/DL (1.5-2.5); POTASSIUM 3.7 MEQ/L (3.5-5.1); SODIUM (NA) 140 MEQ/L (136-145); URIC ACID 2.3 MG/DL (2.6-7.2)
[2017-07-03 07:02] LABS: ALKALINE PHOSPHATASE 87 U/L (45-117); LDH SERUM 203 U/L (87-241); TOTAL BILIRUBIN ADULT 0.1 MG/DL (0.2-1.0)
[2017-07-03 08:00] VITALS: BP 128/70; PULSE 78; RESP 16; TEMP 97.2; O2SAT 100
[2017-07-03] MEDS: NIFEdipine 90 MG SUSTAINED RELEASE TAB PO SCH (08:32)
[2017-07-03] MEDS: MAGNESIUM OXIDE 400 MG TAB PO SCH ×2 (08:32→19:36)
[2017-07-03] MEDS: LISINOPRIL 5 MG TAB PO SCH (08:32)
[2017-07-03] MEDS: PANTOPRAZOLE SOD 40 MG DELAYED RELEASE TAB PO SCH (08:32)
[2017-07-03] MEDS: ALLOPURINOL 300 MG TAB PO SCH (08:32)
[2017-07-03] MEDS: SODIUM CHLORIDE 0.9% FLUSH 10 ML FLUSH IVF SCH (09:00)
--- NOTE | 2017-07-03 11:09 | PD.ONC.PN ---
Subjective Subjective Remarks Afebrile overnight. Patient resting in bed in nad. Tolerating chemotherapy. Minimal night sweats. No nausea or vomiting. Objective Data Date Time Temp Pulse Resp B/P (MAP) Pulse Ox O2 Delivery O2 Flow Rate FiO2 07/03/17 08:00 97.2 78 16 128/70 (89) 100 07/03/17 04:00 96.0 73 18 165/88 (113) 98 07/03/17 00:00 96.9 75 18 124/78 (93) 100 07/02/17 20:00 97.3 55 16 123/88 (100) 100 07/02/17 15:50 96.7 77 20 116/63 (80) 100 07/02/17 11:50 96.7 76 20 138/93 (108) 100 07/03/17 07/03/17 07/03/17 07:00 15:00 23:00 Intake Total 480 ml Output Total 2000 ml Balance -1520 ml Result Diagram: 07/03/1740907/03/17 041 Laboratory Results Laboratory Tests Test 07/03/17 04:10 White Blood Count 15.3 TH/MM3 Red Blood Count 3.32 MIL/MM3 Hemoglobin 9.6 GM/DL Hematocrit 29.6 % Mean Corpuscular Volume 89.2 FL Mean Corpuscular Hemoglobin 28.8 PG Mean Corpuscular Hemoglobin Concent 32.3 % Red Cell Distribution Width 16.2 % Platelet Count 467 TH/MM3 Mean Platelet Volume 7.5 FL Neutrophils (%) (Auto) 96.0 % Lymphocytes (%) (Auto) 2.2 % Monocytes (%) (Auto) 1.7 % Eosinophils (%) (Auto) 0.0 % Basophils (%) (Auto) 0.1 % Neutrophils # (Auto) 14.7 TH/MM3 Lymphocytes # (Auto) 0.3 TH/MM3 Monocytes # (Auto) 0.3 TH/MM3 Eosinophils # (Auto) 0.0 TH/MM3 Basophils # (Auto) 0.0 TH/MM3 CBC Comment AUTO DIFF Differential Comment Prothrombin Time 43.5 SEC Prothromb Time International Ratio 3.7 RATIO Blood Urea Nitrogen 10 MG/DL Creatinine 0.54 MG/DL Random Glucose 106 MG/DL Total Protein 6.1 GM/DL Albumin 2.1 GM/DL Calcium Level 8.2 MG/DL Magnesium Level 1.5 MG/DL Uric Acid 2.3 MG/DL Alkaline Phosphatase 87 U/L Aspartate Amino Transf (AST/SGOT) 8 U/L Alanine Aminotransferase (ALT/SGPT) 15 U/L Lactate Dehydrogenase 203 U/L Total Bilirubin 0.1 MG/DL Sodium Level 140 MEQ/L Potassium Level 3.7 MEQ/L Chloride Level 105 MEQ/L Carbon Dioxide Level 26.6 MEQ/L Anion Gap 8 MEQ/L Estimat Glomerular Filtration Rate 196 ML/MIN Administered Medications Medications (Trade) Dose Ordered Sig/Shyla Route PRN Reason Start Time Stop Time Status Last Admin Dose Admin Sodium Chloride (NS Flush) DAILY IVF 06/30/17 09:00 07/01/17 09:02 Sodium Chloride (NS Flush) UNSCH PRN IVF SEE PROTOCOL 06/30/17 08:45 06/30/17 09:33 Allopurinol (Zyloprim) 300 mg DAILY PO 06/30/17 09:00 07/03/17 08:32 Warfarin Sodium (Coumadin) 4 mg DAILY@16 PO 06/30/17 16:00 Future Hold 07/01/17 17:20 Nifedipine (Procardia Xl) 90 mg DAILY PO 07/01/17 09:00 07/03/17 08:32 Pantoprazole Sodium (Protonix) 40 mg DAILY PO 07/01/17 09:00 07/03/17 08:32 Sodium Chloride 1,000 ml @ 50 mls/hr Q20H IV 06/30/17 11:00 07/03/17 04:59 Magnesium Oxide (Mag-Ox) 400 mg Q12HR PO 06/30/17 11:00 07/03/17 08:32 Granisetron HCl (Kytril Inj) 1 mg Q24H IV 06/30/17 15:30 07/04/17 15:31 07/03/17 04:12 Etoposide 90 mg/ Doxorubicin HCl 18 mg/Vincristine Sulfate 0.72 mg/ Sodium Chloride 514.22 ml @ 21.426 mls/hr Q24H IV 06/30/17 16:00 07/04/17 15:59 07/03/17 04:49 Prednisone (Deltasone) 100 mg Q12H PO 06/30/17 16:00 07/05/17 04:01 07/03/17 04:06 Prednisone (Deltasone) 5 mg Q12H PO 06/30/17 16:00 07/05/17 04:01 07/03/17 04:05 Prednisone (Deltasone) 3 mg Q12H PO 06/30/17 16:00 07/05/17 04:01 07/03/17 04:05 Lisinopril (Prinivil) 5 mg DAILY PO 07/01/17 09:00 07/03/17 08:32 Objective Remarks GENERAL: Middle aged male sitting up in bed in nad. SKIN: Warm and dry. HEAD: Normocephalic. EYES: No injection or drainage. NECK: Supple, trachea midline. CARDIOVASCULAR: Regular rate and rhythm RESPIRATORY: Breath sounds equal bilaterally. No accessory muscle use. GASTROINTESTINAL: Abdomen soft, non-tender, nondistended. EXTREMITIES: No cyanosis MUSCULOSKELETAL: Adequate muscle tone. NEUROLOGICAL: awake and alert, normal speech. moving all extremities. 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 Plan 1. continue EPOCH chemotherapy--today at 4AM started D3. Tomorrow 07/04 will start D4. Patient currently on track to finish chemotherapy around Thursday afternoon. 2. Plan for discharge Thursday and follow up at clinic Thursday afternoon for Neulasta shot. 3. continue to hold Coumadin as INR is >3 4. continue hypertensive medications Attending Statement The exam, history, and the medical decision-making described in the above note were completed with the assistance of the mid-level provider. I reviewed and agree with the findings presented. I attest that I had a [id number] encounter with the patient on the same day, and personally performed and documented my assessment and findings in the medical record. tolerating chemo well. No TLS. Continue EPOCH. Plan to give him Neulasta next Thursday or at clinic. Anticipate d/c Thursday after he completes the chemo. Problem Qualifiers (1) Non-Hodgkin lymphoma: Qualified Codes: C83.38 - Diffuse large b-cell lymphoma, lymph nodes of multiple sites (2) Pulmonary emboli: (3) Hypertension: Qualified Codes: I10 - Essential (primary) hypertension Brenda Platt Jul 03, 2017 11:09 Ruslan Connelly MD Jul 03, 2017 15:05
[2017-07-03 12:00] VITALS: BP 121/75; PULSE 63; RESP 18; TEMP 97.9; O2SAT 99
[2017-07-03 16:00] VITALS: BP 127/69; PULSE 92; RESP 20; TEMP 98.1; O2SAT 100
[2017-07-03 21:08] VITALS: BP 133/73; PULSE 64; RESP 18; TEMP 98; O2SAT 97
[2017-07-04] VITALS: BP 162/98; PULSE 71; RESP 16; TEMP 96.9; O2SAT 100
[2017-07-04] MEDS: SODIUM CHLOR 0.9% 1000 ML INJ 1,000 ML IV SCH ×2 (01:30→22:00)
[2017-07-04 04:00] VITALS: BP 160/102; PULSE 77; RESP 16; TEMP 95.1; O2SAT 96
[2017-07-04] MEDS: predniSONE 1 MG TAB PO SCH ×2 (05:18→17:25)
[2017-07-04] MEDS: GRANISETRON HCL 1 MG/ML VIAL IV SCH (05:18)
[2017-07-04] MEDS: predniSONE 50 MG TAB PO SCH ×2 (05:18→17:25)
[2017-07-04] MEDS: predniSONE 5 MG TAB PO SCH ×2 (05:18→17:25)
[2017-07-04] MEDS: [UNRECOGNIZED DRUG - OTHER] IV SCH (06:21)
[2017-07-04] MEDS: DOXORUBICIN IV SCH (06:21)
[2017-07-04] MEDS: ETOPOSIDE IV SCH (06:21)
[2017-07-04] MEDS: VINCRISTINE IV SCH (06:21)
[2017-07-04 07:06] LABS: HEMATOCRIT 29.1 % (39.0-51.0); HEMO FLAGS DIFF FINAL; LYMPH % 1.9 % (9.0-44.0); LYMPHOCYTE # 0.3 TH/MM3 (1.0-4.8); MEAN CELL VOLUME 88.3 FL (80.0-100.0); MEAN CORPUSCULAR HGB CONC 32.8 % (32.0-36.0); NEUT % 97.1 % (16.0-70.0); PLATELET COUNT 427 TH/MM3 (150-450); RED CELL DISTRIBUTION WIDTH 16.3 % (11.6-17.2); WHITE BLOOD COUNT 13.4 TH/MM3 (4.0-11.0)
[2017-07-04 07:25] LABS: ALT (GPT) 17 U/L (12-78); ANION GAP 8 MEQ/L (5-15); AST (GOT) 10 U/L (15-37); BICARBONATE 27.5 MEQ/L (21.0-32.0); BLOOD UREA NITROGEN 13 MG/DL (7-18); CHLORIDE 103 MEQ/L (98-107); GLOMERULAR FILTRATION RATE 196 ML/MIN (>89); POTASSIUM 3.8 MEQ/L (3.5-5.1); SODIUM (NA) 138 MEQ/L (136-145)
[2017-07-04 07:27] LABS: ALKALINE PHOSPHATASE 88 U/L (45-117); TOTAL BILIRUBIN ADULT 0.2 MG/DL (0.2-1.0)
[2017-07-04 07:43] LABS: INTERNATIONAL NORMALIZED RATIO 2.4 RATIO
[2017-07-04 07:50] VITALS: BP 146/90; PULSE 61; RESP 20; TEMP 96.1; O2SAT 100
[2017-07-04] MEDS: PANTOPRAZOLE SOD 40 MG DELAYED RELEASE TAB PO SCH (07:52)
[2017-07-04] MEDS: ALLOPURINOL 300 MG TAB PO SCH (07:53)
[2017-07-04] MEDS: MAGNESIUM OXIDE 400 MG TAB PO SCH ×2 (07:53→19:12)
[2017-07-04] MEDS: NIFEdipine 90 MG SUSTAINED RELEASE TAB PO SCH (07:53)
[2017-07-04] MEDS: SODIUM CHLORIDE 0.9% FLUSH 10 ML FLUSH IVF SCH (07:53)
[2017-07-04] MEDS: LISINOPRIL 5 MG TAB PO SCH (07:53)
[2017-07-04] MEDS: SODIUM CHLORIDE 0.9% FLUSH 10 ML FLUSH IVF PRN (07:54)
--- NOTE | 2017-07-04 09:27 | PD.ONC.PN ---
Subjective Subjective Remarks Afebrile Patient sitting up in bed in no acute distress eating breakfast and watching TV He excitedly tells me that his lymphadenopathy has gone Objective Data Date Time Temp Pulse Resp B/P (MAP) Pulse Ox O2 Delivery O2 Flow Rate FiO2 07/04/17 04:00 95.1 77 16 160/102 (121) 96 07/04/17 00:00 96.9 71 16 162/98 (119) 100 07/03/17 21:08 98.0 64 18 133/73 (93) 97 07/03/17 16:00 98.1 92 20 127/69 (88) 100 07/03/17 12:00 97.9 63 18 121/75 (90) 99 07/04/17 07/04/17 07/04/17 07:00 15:00 23:00 Intake Total 692 ml Output Total 900 ml Balance -208 ml Result Diagram: 07/04/17 0522 07/04/17 0522 Laboratory Results Laboratory Tests Test 07/04/17 05:22 White Blood Count 13.4 TH/MM3 Red Blood Count 3.30 MIL/MM3 Hemoglobin 9.6 GM/DL Hematocrit 29.1 % Mean Corpuscular Volume 88.3 FL Mean Corpuscular Hemoglobin 29.0 PG Mean Corpuscular Hemoglobin Concent 32.8 % Red Cell Distribution Width 16.3 % Platelet Count 427 TH/MM3 Mean Platelet Volume 7.4 FL Neutrophils (%) (Auto) 97.1 % Lymphocytes (%) (Auto) 1.9 % Monocytes (%) (Auto) 1.0 % Eosinophils (%) (Auto) 0.0 % Basophils (%) (Auto) 0.0 % Neutrophils # (Auto) 13.0 TH/MM3 Lymphocytes # (Auto) 0.3 TH/MM3 Monocytes # (Auto) 0.1 TH/MM3 Eosinophils # (Auto) 0.0 TH/MM3 Basophils # (Auto) 0.0 TH/MM3 CBC Comment DIFF FINAL Differential Comment Prothrombin Time 28.0 SEC Prothromb Time International Ratio 2.4 RATIO Blood Urea Nitrogen 13 MG/DL Creatinine 0.54 MG/DL Random Glucose 100 MG/DL Total Protein 5.9 GM/DL Albumin 2.1 GM/DL Calcium Level 8.3 MG/DL Alkaline Phosphatase 88 U/L Aspartate Amino Transf (AST/SGOT) 10 U/L Alanine Aminotransferase (ALT/SGPT) 17 U/L Total Bilirubin 0.2 MG/DL Sodium Level 138 MEQ/L Potassium Level 3.8 MEQ/L Chloride Level 103 MEQ/L Carbon Dioxide Level 27.5 MEQ/L Anion Gap 8 MEQ/L Estimat Glomerular Filtration Rate 196 ML/MIN Administered Medications Medications (Trade) Dose Ordered Sig/Shyla Route PRN Reason Start Time Stop Time Status Last Admin Dose Admin Sodium Chloride (NS Flush) DAILY IVF 06/30/17 09:00 07/01/17 09:02 Sodium Chloride (NS Flush) UNSCH PRN IVF SEE PROTOCOL 06/30/17 08:45 06/30/17 09:33 Allopurinol (Zyloprim) 300 mg DAILY PO 06/30/17 09:00 07/04/17 07:53 Warfarin Sodium (Coumadin) 4 mg DAILY@16 PO 06/30/17 16:00 Future Hold 07/01/17 17:20 Nifedipine (Procardia Xl) 90 mg DAILY PO 07/01/17 09:00 07/04/17 07:53 Pantoprazole Sodium (Protonix) 40 mg DAILY PO 07/01/17 09:00 07/04/17 07:52 Sodium Chloride 1,000 ml @ 50 mls/hr Q20H IV 06/30/17 11:00 07/04/17 01:30 Magnesium Oxide (Mag-Ox) 400 mg Q12HR PO 06/30/17 11:00 07/04/17 07:53 Granisetron HCl (Kytril Inj) 1 mg Q24H IV 06/30/17 15:30 07/04/17 15:31 07/04/17 05:18 Etoposide 90 mg/ Doxorubicin HCl 18 mg/Vincristine Sulfate 0.72 mg/ Sodium Chloride 514.22 ml @ 21.426 mls/hr Q24H IV 06/30/17 16:00 07/04/17 15:59 07/04/17 06:21 Prednisone (Deltasone) 100 mg Q12H PO 06/30/17 16:00 07/05/17 04:01 07/04/17 05:18 Prednisone (Deltasone) 5 mg Q12H PO 06/30/17 16:00 07/05/17 04:01 07/04/17 05:18 Prednisone (Deltasone) 3 mg Q12H PO 06/30/17 16:00 07/05/17 04:01 07/04/17 05:18 Lisinopril (Prinivil) 5 mg DAILY PO 07/01/17 09:00 07/04/17 07:53 Clonidine (Catapres) 0.1 mg Q6H PRN PO SEE LABEL COMMENTS 07/01/17 08:45 07/04/17 05:18 Objective Remarks GENERAL: Middle aged male sitting up in bed in no acute distress. SKIN: Warm and dry. HEAD: Normocephalic. EYES: No injection or drainage. NECK: Supple, trachea midline. CARDIOVASCULAR: Regular rate and rhythm RESPIRATORY: Breath sounds equal bilaterally. No accessory muscle use. GASTROINTESTINAL: Abdomen soft, non-tender, nondistended. EXTREMITIES: No cyanosis. No edema. MUSCULOSKELETAL: Adequate muscle tone. NEUROLOGICAL: Awake and alert, normal speech. Moving all extremities. 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 Plan 1. continue EPOCH chemotherapy; D4 today. 2. Patient currently on track to finish chemotherapy around Thursday afternoon. 3. Resume warfarin today as his INR is therapeutic. 4. Monitor blood counts. Attending Statement The exam, history, and the medical decision-making described in the above note were completed with the assistance of the mid-level provider. I reviewed and agree with the findings presented. I attest that I had a [id number] encounter with the patient on the same day, and personally performed and documented my assessment and findings in the medical record. Chemo on going, no complications. Pt has no complaints. Nausea controlled. Pt ambulating to BR and back. Problem Qualifiers (1) Non-Hodgkin lymphoma: Qualified Codes: C83.38 - Diffuse large b-cell lymphoma, lymph nodes of multiple sites (2) Pulmonary emboli: (3) Hypertension: Qualified Codes: I10 - Essential (primary) hypertension Tia Montenegro Jul 04, 2017 09:27 Joanna Castellon MD Jul 04, 2017 12:27
[2017-07-04 11:45] VITALS: BP 119/76; PULSE 59; RESP 20; TEMP 96.4; O2SAT 100
[2017-07-04 15:00] VITALS: BP 112/71; PULSE 55; RESP 20; TEMP 96.6; O2SAT 100
[2017-07-04] MEDS ORDERED: SODIUM CHLORID 0.9% IV ONE (16:00)
[2017-07-04] MEDS ORDERED: CYCLOPHOSPHAMIDE IV ONE (16:00)
[2017-07-04] MEDS: WARFARIN SOD 4 MG TAB PO SCH (17:26)
[2017-07-04 20:00] VITALS: BP 132/80; PULSE 78; RESP 20; TEMP 97.8; O2SAT 100
[2017-07-05] VITALS (7 sets, daily range): BP systolic 127–160; BP diastolic 68–94; PULSE 63–76; RESP 18–20; TEMP 96.2–97.6; O2SAT 97–100
[2017-07-05] MEDS: predniSONE 5 MG TAB PO SCH (03:49)
[2017-07-05] MEDS: predniSONE 1 MG TAB PO SCH (03:49)
[2017-07-05] MEDS: predniSONE 50 MG TAB PO SCH (03:49)
[2017-07-05] MEDS: GRANISETRON HCL 1 MG/ML VIAL IV SCH (05:41)
[2017-07-05 07:05] LABS: BASOPHIL % 0.1 % (0.0-2.0); HEMATOCRIT 28.3 % (39.0-51.0); HEMO FLAGS DIFF FINAL; LYMPHOCYTE # 0.2 TH/MM3 (1.0-4.8); MEAN CELL VOLUME 87.4 FL (80.0-100.0); MEAN CORPUSCULAR HEMOGLOBIN 29.2 PG (27.0-34.0); MEAN CORPUSCULAR HGB CONC 33.4 % (32.0-36.0); NEUT % 96.9 % (16.0-70.0); PLATELET COUNT 371 TH/MM3 (150-450); RED BLOOD COUNT 3.24 MIL/MM3 (4.50-5.90); WHITE BLOOD COUNT 11.3 TH/MM3 (4.0-11.0)
[2017-07-05 07:10] LABS: ANION GAP 7 MEQ/L (5-15); AST (GOT) 11 U/L (15-37); BICARBONATE 28.1 MEQ/L (21.0-32.0); BLOOD UREA NITROGEN 14 MG/DL (7-18); CHLORIDE 102 MEQ/L (98-107); GLOMERULAR FILTRATION RATE 205 ML/MIN (>89); POTASSIUM 3.3 MEQ/L (3.5-5.1); SODIUM (NA) 137 MEQ/L (136-145)
[2017-07-05 07:14] LABS: ALKALINE PHOSPHATASE 84 U/L (45-117); ALT (GPT) 17 U/L (12-78); TOTAL BILIRUBIN ADULT 0.2 MG/DL (0.2-1.0); URIC ACID 2.5 MG/DL (2.6-7.2)
[2017-07-05 07:20] LABS: PROTHROMBIN TIME - PATIENT 22.2 SEC (9.8-11.6)
[2017-07-05] MEDS: SODIUM CHLORIDE 0.9% FLUSH 10 ML FLUSH IVF SCH (09:00)
[2017-07-05] MEDS ORDERED: POTASSIUM CHLORIDE 20 MEQ CONTROLLED RELEASE TAB PO ONE (09:00)
--- NOTE | 2017-07-05 09:08 | PD.ONC.PN ---
Subjective Subjective Remarks Afebrile overnight Patient sitting up in bed eating breakfast No acute complaints Talking about football yesterday Objective Data Date Time Temp Pulse Resp B/P (MAP) Pulse Ox O2 Delivery O2 Flow Rate FiO2 07/05/17 07:30 96.2 63 20 146/86 (106) 100 07/05/17 04:00 97.6 66 20 160/94 (116) 100 07/05/17 00:00 97.6 68 20 131/80 (97) 100 07/04/17 20:00 97.8 78 20 132/80 (97) 100 07/04/17 15:00 96.6 55 20 112/71 (85) 100 07/04/17 11:45 96.4 59 20 119/76 (90) 100 07/05/17 07/05/17 07/05/17 07:00 15:00 23:00 Intake Total 240 ml Output Total 600 ml Balance -360 ml Result Diagram: 07/05/17 0546 07/05/17 0546 Laboratory Results Laboratory Tests Test 07/05/17 05:46 White Blood Count 11.3 TH/MM3 Red Blood Count 3.24 MIL/MM3 Hemoglobin 9.5 GM/DL Hematocrit 28.3 % Mean Corpuscular Volume 87.4 FL Mean Corpuscular Hemoglobin 29.2 PG Mean Corpuscular Hemoglobin Concent 33.4 % Red Cell Distribution Width 16.0 % Platelet Count 371 TH/MM3 Mean Platelet Volume 7.5 FL Neutrophils (%) (Auto) 96.9 % Lymphocytes (%) (Auto) 2.0 % Monocytes (%) (Auto) 1.0 % Eosinophils (%) (Auto) 0.0 % Basophils (%) (Auto) 0.1 % Neutrophils # (Auto) 11.0 TH/MM3 Lymphocytes # (Auto) 0.2 TH/MM3 Monocytes # (Auto) 0.1 TH/MM3 Eosinophils # (Auto) 0.0 TH/MM3 Basophils # (Auto) 0.0 TH/MM3 CBC Comment DIFF FINAL Differential Comment Prothrombin Time 22.2 SEC Prothromb Time International Ratio 2.0 RATIO Blood Urea Nitrogen 14 MG/DL Creatinine 0.52 MG/DL Random Glucose 109 MG/DL Total Protein 5.7 GM/DL Albumin 2.2 GM/DL Calcium Level 8.1 MG/DL Uric Acid 2.5 MG/DL Alkaline Phosphatase 84 U/L Aspartate Amino Transf (AST/SGOT) 11 U/L Alanine Aminotransferase (ALT/SGPT) 17 U/L Total Bilirubin 0.2 MG/DL Sodium Level 137 MEQ/L Potassium Level 3.3 MEQ/L Chloride Level 102 MEQ/L Carbon Dioxide Level 28.1 MEQ/L Anion Gap 7 MEQ/L Estimat Glomerular Filtration Rate 205 ML/MIN Administered Medications Medications (Trade) Dose Ordered Sig/Shyla Route PRN Reason Start Time Stop Time Status Last Admin Dose Admin Sodium Chloride (NS Flush) DAILY IVF 06/30/17 09:00 07/01/17 09:02 Sodium Chloride (NS Flush) UNSCH PRN IVF SEE PROTOCOL 06/30/17 08:45 06/30/17 09:33 Allopurinol (Zyloprim) 300 mg DAILY PO 06/30/17 09:00 07/04/17 07:53 Warfarin Sodium (Coumadin) 4 mg DAILY@16 PO 06/30/17 16:00 Future hold 07/04/17 17:26 Nifedipine (Procardia Xl) 90 mg DAILY PO 07/01/17 09:00 07/04/17 07:53 Pantoprazole Sodium (Protonix) 40 mg DAILY PO 07/01/17 09:00 07/04/17 07:52 Sodium Chloride 1,000 ml @ 50 mls/hr Q20H IV 06/30/17 11:00 07/04/17 22:00 Magnesium Oxide (Mag-Ox) 400 mg Q12HR PO 06/30/17 11:00 07/04/17 19:12 Clonidine (Catapres) 0.1 mg Q6H PRN PO SEE LABEL COMMENTS 07/01/17 08:45 07/04/17 05:18 Objective Remarks GENERAL: Middle aged male sitting up in bed in no acute distress. SKIN: Warm and dry. HEAD: Normocephalic. EYES: No injection or drainage. NECK: Supple, trachea midline. CARDIOVASCULAR: Regular rate and rhythm RESPIRATORY: Breath sounds equal bilaterally. No accessory muscle use. GASTROINTESTINAL: Abdomen soft, non-tender, nondistended. EXTREMITIES: No cyanosis. No edema. MUSCULOSKELETAL: Adequate muscle tone. NEUROLOGICAL: Awake and alert, normal speech. Moving all extremities. 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 Plan 1. Pt finishing last chemo this am; will likely be discharged tomorrow. 2. Continue warfarin. 3. Will replace potassium today. 4. Monitor blood counts. Attending Statement The exam, history, and the medical decision-making described in the above note were completed with the assistance of the mid-level provider. I reviewed and agree with the findings presented. I attest that I had a [id number] encounter with the patient on the same day, and personally performed and documented my assessment and findings in the medical record. Pt seen and examined. No complaints. Encouraged to take PO fluids and to ambulate. Anticipate DC tomorrow morning. FU w/ scheduled appt. Dr. Connelly to return tomorrow to DC patient. Problem Qualifiers (1) Non-Hodgkin lymphoma: Qualified Codes: C83.38 - Diffuse large b-cell lymphoma, lymph nodes of multiple sites (2) Pulmonary emboli: (3) Hypertension: Qualified Codes: I10 - Essential (primary) hypertension Tia Montenegro Jul 05, 2017 09:08 Joanna Castellon MD Jul 05, 2017 14:50
[2017-07-05] MEDS: MAGNESIUM OXIDE 400 MG TAB PO SCH ×2 (09:12→20:25)
[2017-07-05] MEDS: NIFEdipine 90 MG SUSTAINED RELEASE TAB PO SCH (09:12)
[2017-07-05] MEDS: PANTOPRAZOLE SOD 40 MG DELAYED RELEASE TAB PO SCH (09:12)
[2017-07-05] MEDS: ALLOPURINOL 300 MG TAB PO SCH (09:12)
[2017-07-05] MEDS: SODIUM CHLORIDE 0.9% FLUSH 10 ML FLUSH IVF PRN (09:13)
[2017-07-05] MEDS: LISINOPRIL 10 MG TAB PO SCH (09:17)
[2017-07-05] MEDS: WARFARIN SOD 4 MG TAB PO SCH (17:41)
[2017-07-06 00:10] VITALS: BP_SYST 13; BP_SYST 139; BP_DIAS 95; PULSE 76; RESP 18; TEMP 97.5; O2SAT 100
[2017-07-06 04:10] VITALS: BP 139/87; PULSE 85; RESP 17; TEMP 99.9; O2SAT 100
[2017-07-06] MEDS: SODIUM CHLORIDE 0.9% FLUSH 10 ML FLUSH IVF PRN (04:10)
[2017-07-06 04:29] LABS: AUTOMATED NEUTROPHIL # 12.4 TH/MM3 (1.8-7.7); BASOPHIL % 0.1 % (0.0-2.0); HEMATOCRIT 26.3 % (39.0-51.0); HEMO FLAGS DIFF FINAL; LYMPH % 3.2 % (9.0-44.0); LYMPHOCYTE # 0.4 TH/MM3 (1.0-4.8); MEAN CELL VOLUME 86.9 FL (80.0-100.0); MEAN CORPUSCULAR HEMOGLOBIN 29.5 PG (27.0-34.0); MONO % 0.6 % (0.0-8.0); NEUT % 96.1 % (16.0-70.0); PLATELET COUNT 321 TH/MM3 (150-450); RED BLOOD COUNT 3.02 MIL/MM3 (4.50-5.90); RED CELL DISTRIBUTION WIDTH 15.7 % (11.6-17.2); WHITE BLOOD COUNT 12.9 TH/MM3 (4.0-11.0)
[2017-07-06 04:36] LABS: INTERNATIONAL NORMALIZED RATIO 2.1 RATIO; PROTHROMBIN TIME - PATIENT 24.5 SEC (9.8-11.6)
[2017-07-06 04:58] LABS: ALT (GPT) 13 U/L (12-78); ANION GAP 8 MEQ/L (5-15); AST (GOT) 5 U/L (15-37); BICARBONATE 27.2 MEQ/L (21.0-32.0); BLOOD UREA NITROGEN 13 MG/DL (7-18); CHLORIDE 104 MEQ/L (98-107); GLOMERULAR FILTRATION RATE 161 ML/MIN (>89); POTASSIUM 3.2 MEQ/L (3.5-5.1); SODIUM (NA) 139 MEQ/L (136-145)
[2017-07-06 05:00] LABS: ALKALINE PHOSPHATASE 72 U/L (45-117); TOTAL BILIRUBIN ADULT 0.3 MG/DL (0.2-1.0)
[2017-07-06] MEDS: SODIUM CHLOR 0.9% 1000 ML INJ 1,000 ML IV SCH (07:00)
[2017-07-06 07:55] VITALS: BP 136/80; PULSE 87; RESP 16; TEMP 100.7; O2SAT 99
[2017-07-06] MEDS: LISINOPRIL 10 MG TAB PO SCH (07:58)
[2017-07-06] MEDS: MAGNESIUM OXIDE 400 MG TAB PO SCH (07:58)
[2017-07-06] MEDS: NIFEdipine 90 MG SUSTAINED RELEASE TAB PO SCH (07:58)
[2017-07-06] MEDS: ALLOPURINOL 300 MG TAB PO SCH (07:58)
[2017-07-06] MEDS: PANTOPRAZOLE SOD 40 MG DELAYED RELEASE TAB PO SCH (07:58)
[2017-07-06] MEDS: SODIUM CHLORIDE 0.9% FLUSH 10 ML FLUSH IVF SCH (07:59)
[2017-07-06] MEDS ORDERED: POTASSIUM CHLORIDE 20 MEQ CONTROLLED RELEASE TAB PO ONE (09:00)
[2017-07-06 12:00] VITALS: BP 138/76; PULSE 87; RESP 16; TEMP 99.7; O2SAT 99
--- NOTE | 2017-07-06 12:21 | PD.ONC.PN ---
Subjective Subjective Remarks Tmax 100.7 this morning. Complaining of sore throat and mild cough present since yesterday afternoon. Otherwise without complaint. No trouble swallowing. Ate breakfast this morning. Objective Data Date Time Temp Pulse Resp B/P (MAP) Pulse Ox O2 Delivery O2 Flow Rate FiO2 07/06/17 07:55 100.7 87 16 136/80 (98) 99 07/06/17 04:10 99.9 85 17 139/87 (104) 100 07/06/17 00:10 97.5 76 18 139/95 (110) 100 07/05/17 20:10 97.4 76 18 140/87 (104) 100 07/05/17 15:30 97.3 74 20 127/78 (94) 100 07/06/17 07/06/17 07/06/17 07:00 15:00 23:00 Intake Total 200 ml Output Total 750 ml Balance -550 ml Result Diagram: 07/06/17 0410 07/06/17 0410 Laboratory Results Laboratory Tests Test 07/06/17 04:10 White Blood Count 12.9 TH/MM3 Red Blood Count 3.02 MIL/MM3 Hemoglobin 8.9 GM/DL Hematocrit 26.3 % Mean Corpuscular Volume 86.9 FL Mean Corpuscular Hemoglobin 29.5 PG Mean Corpuscular Hemoglobin Concent 34.0 % Red Cell Distribution Width 15.7 % Platelet Count 321 TH/MM3 Mean Platelet Volume 6.8 FL Neutrophils (%) (Auto) 96.1 % Lymphocytes (%) (Auto) 3.2 % Monocytes (%) (Auto) 0.6 % Eosinophils (%) (Auto) 0.0 % Basophils (%) (Auto) 0.1 % Neutrophils # (Auto) 12.4 TH/MM3 Lymphocytes # (Auto) 0.4 TH/MM3 Monocytes # (Auto) 0.1 TH/MM3 Eosinophils # (Auto) 0.0 TH/MM3 Basophils # (Auto) 0.0 TH/MM3 CBC Comment DIFF FINAL Differential Comment Prothrombin Time 24.5 SEC Prothromb Time International Ratio 2.1 RATIO Blood Urea Nitrogen 13 MG/DL Creatinine 0.64 MG/DL Random Glucose 83 MG/DL Total Protein 5.1 GM/DL Albumin 2.0 GM/DL Calcium Level 7.8 MG/DL Alkaline Phosphatase 72 U/L Aspartate Amino Transf (AST/SGOT) 5 U/L Alanine Aminotransferase (ALT/SGPT) 13 U/L Total Bilirubin 0.3 MG/DL Sodium Level 139 MEQ/L Potassium Level 3.2 MEQ/L Chloride Level 104 MEQ/L Carbon Dioxide Level 27.2 MEQ/L Anion Gap 8 MEQ/L Estimat Glomerular Filtration Rate 161 ML/MIN Administered Medications Medications (Trade) Dose Ordered Sig/Shyla Route PRN Reason Start Time Stop Time Status Last Admin Dose Admin Sodium Chloride (NS Flush) DAILY IVF 06/30/17 09:00 07/06/17 07:59 Heparin Sodium (Porcine) (Heparin Central Flush) DAILY IV FLUSH 06/30/17 09:00 07/05/17 09:00 Sodium Chloride (NS Flush) UNSCH PRN IVF SEE PROTOCOL 06/30/17 08:45 07/06/17 04:10 Heparin Sodium (Porcine) (Heparin Central Flush) UNSCH PRN IV FLUSH SEE PROTOCOL 06/30/17 08:45 07/06/17 04:10 Allopurinol (Zyloprim) 300 mg DAILY PO 06/30/17 09:00 07/06/17 07:58 Warfarin Sodium (Coumadin) 4 mg DAILY@16 PO 06/30/17 16:00 Future hold 07/05/17 17:41 Nifedipine (Procardia Xl) 90 mg DAILY PO 07/01/17 09:00 07/06/17 07:58 Pantoprazole Sodium (Protonix) 40 mg DAILY PO 07/01/17 09:00 07/06/17 07:58 Sodium Chloride 1,000 ml @ 50 mls/hr Q20H IV 06/30/17 11:00 07/04/17 22:00 Magnesium Oxide (Mag-Ox) 400 mg Q12HR PO 06/30/17 11:00 07/06/17 07:58 Clonidine (Catapres) 0.1 mg Q6H PRN PO SEE LABEL COMMENTS 07/01/17 08:45 07/04/17 05:18 Lisinopril (Prinivil) 10 mg DAILY PO 07/05/17 09:00 07/06/17 07:58 Objective Remarks GENERAL: Thin middle aged male upright in bed in [facility] [place]. SKIN: Warm and dry. HEAD: Normocephalic. Pharynx: mildly injected, a few white spots noted on posterior throat. tonsils atrophic. EYES: No injection or drainage. NECK: Supple, trachea midline. CARDIOVASCULAR: Regular rate and rhythm RESPIRATORY: Breath sounds equal bilaterally. No accessory muscle use. GASTROINTESTINAL: Abdomen soft, non-tender, nondistended. EXTREMITIES: No cyanosis NEUROLOGICAL: No obvious focal deficit. Awake, alert, and oriented x3. 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 Plan 1. check strep test 2. chest x-ray 3. magic mouthwash for sore throat. UPDATE: CXR negative. strep test negative. will keep patient one more day, reassess tomorrow before discharging. Attending Statement The exam, history, and the medical decision-making described in the above note were completed with the assistance of the mid-level provider. I reviewed and agree with the findings presented. I attest that I had a [id number] encounter with the patient on the same day, and personally performed and documented my assessment and findings in the medical record. Daquan fever this morning. +Sorethroa, +whitish patch in posterior pharynx. Strep test negative , CXR no acute process. Start ABX and monitor culture. Start neupogen tomorrow. Problem Qualifiers (1) Non-Hodgkin lymphoma: Qualified Codes: C83.38 - Diffuse large b-cell lymphoma, lymph nodes of multiple sites (2) Pulmonary emboli: (3) Hypertension: Qualified Codes: I10 - Essential (primary) hypertension Brenda Platt Jul 06, 2017 12:21 Ruslan Connelly MD Jul 06, 2017 17:04
--- NOTE | 2017-07-06 14:24 | RADRPT ---
EXAM DATE/TIME: 07/06/2017 13:51 [facility] COMPARISON: CHEST SINGLE AP, June 10, 2017, 13:04. INDICATIONS : Short of BReaeth MEDICAL HISTORY : Lymphoma. Pancreatitis. SURGICAL HISTORY : Port Placement ENCOUNTER: Subsequent ACUITY: Subacute PAIN SCORE: 0/10 LOCATION: Bilateral chest FINDINGS: The [id number] is in excellent position. There are COPD changes within the pulmonary parenchyma. The heart is normal in size. Again noted is adenopathy in the right paratracheal region. This is similar in appearance to previous . The patient's pleural effusion on the left has resolved compared to prior. CONCLUSION: 1. Continued right paratracheal adenopathy. 2. COPD changes. 3. Resolution of the patient's effusion when compared to previous. Adama Briceño MD on July 06, 2017 at 14:22 Board Certified Radiologist. This report was verified electronically.
--- NOTE | 2017-07-06 14:33 | HHI.DCPOC ---
Discharge Care Plan Diagnosis: (1) Pulmonary emboli (2) Non-Hodgkin lymphoma Goals to Promote Your Health * To prevent worsening of your condition and complications * To maintain your health at the optimal level Directions to Meet Your Goals Take your medications as prescribed Follow your dietary instruction Follow activity as directed Keep your appointments as scheduled Take your immunizations and boosters as scheduled If your symptoms worsen call your PCP, if no PCP go to Urgent Care Center or Emergency Room Smoking is Dangerous to Your Health. Avoid second hand smoke Call the 24-hour hour crisis hotline for domestic abuse at Brenda Platt Jul 06, 2017 14:33
--- NOTE | 2017-07-06 14:39 | HHI.DS ---
Brenda Platt 07/06/17 1439: Discharge Summary Admission Date Jun 30, 2017 at 08:38 Admitting Diagnosis high grade, triple hit lymphoma, admitted for EPOCH chemotherapy (1) Non-Hodgkin lymphoma ICD Codes: C85.90 - Non-Hodgkin lymphoma, unspecified, unspecified site Status: Acute Brief History Mr. Werner is a 47 y/o male with history of non-hodgkins lymphoma diagnosed in Summer 2016. At the time of diagnosis he had extensive mediastinal, cervical, and bilateral axillary lymphadenopathy. He has undergone one cycle of R-CHOP and 1 previous cycle of EPOCH chemotherapy. CBC/BMP: 07/06/17 0410 07/06/17 0410 Significant Findings Laboratory Tests Test 07/04/17 05:22 07/05/17 05:46 07/06/17 04:10 White Blood Count 13.4 TH/MM3 (4.0-11.0) 11.3 TH/MM3 (4.0-11.0) 12.9 TH/MM3 (4.0-11.0) Red Blood Count 3.30 MIL/MM3 (4.50-5.90) 3.24 MIL/MM3 (4.50-5.90) 3.02 MIL/MM3 (4.50-5.90) Hemoglobin 9.6 GM/DL (13.0-17.0) 9.5 GM/DL (13.0-17.0) 8.9 GM/DL (13.0-17.0) Hematocrit 29.1 % (39.0-51.0) 28.3 % (39.0-51.0) 26.3 % (39.0-51.0) Neutrophils (%) (Auto) 97.1 % (16.0-70.0) 96.9 % (16.0-70.0) 96.1 % (16.0-70.0) Lymphocytes (%) (Auto) 1.9 % (9.0-44.0) 2.0 % (9.0-44.0) 3.2 % (9.0-44.0) Neutrophils # (Auto) 13.0 TH/MM3 (1.8-7.7) 11.0 TH/MM3 (1.8-7.7) 12.4 TH/MM3 (1.8-7.7) Lymphocytes # (Auto) 0.3 TH/MM3 (1.0-4.8) 0.2 TH/MM3 (1.0-4.8) 0.4 TH/MM3 (1.0-4.8) Prothrombin Time 28.0 SEC (9.8-11.6) 22.2 SEC (9.8-11.6) 24.5 SEC (9.8-11.6) Creatinine 0.54 MG/DL (0.60-1.30) 0.52 MG/DL (0.60-1.30) Total Protein 5.9 GM/DL (6.4-8.2) 5.7 GM/DL (6.4-8.2) 5.1 GM/DL (6.4-8.2) Albumin 2.1 GM/DL (3.4-5.0) 2.2 GM/DL (3.4-5.0) 2.0 GM/DL (3.4-5.0) Calcium Level 8.3 MG/DL (8.5-10.1) 8.1 MG/DL (8.5-10.1) 7.8 MG/DL (8.5-10.1) Aspartate Amino Transf (AST/SGOT) 10 U/L (15-37) 11 U/L (15-37) 5 U/L (15-37) Random Glucose 109 MG/DL (74-106) Uric Acid 2.5 MG/DL (2.6-7.2) Potassium Level 3.3 MEQ/L (3.5-5.1) 3.2 MEQ/L (3.5-5.1) Mean Platelet Volume 6.8 FL (7.0-11.0) Hospital Course Mr. Werner was admitted on 06/30/2017 for cycle # 3 of chemotherapy with EPOCH. His home medications were resumed. He was started on Protonix for GI prophylaxis. His home warfarin was resumed. During the course of the patient's hospitalization his blood pressure was found to be excessively elevated. His home medication Nifedipine was already at maximum dosing. Therefore, an additional blood pressure medication, Lisinopril was added and then the dosage increased to 10mg PO daily. Mr. Werner tolerated chemotherapy without reaction. He is being discharged home in stable condition with instructions for follow up. Pt Condition on Discharge: Good Discharge Disposition: Discharge Home Discharge Instructions DIET: Follow Instructions for: As Tolerated, No Restrictions Ruslan Connelly MD 07/07/17 1715: Discharge Summary CBC/BMP: 07/06/17 0410 07/06/17 0410 Brenda Platt Jul 06, 2017 14:39 Ruslan Connelly MD Jul 07, 2017 17:15
[2017-07-06 16:00] VITALS: BP 121/70; PULSE 86; RESP 16; TEMP 99.9; O2SAT 99
[2017-07-06] MEDS: NYSTAT/DIPHENHY/LIDO MOUTHWASH (Adult) 120ML SWISH-SWAL SCH ×2 (17:08→21:00)
[2017-07-06] MEDS: WARFARIN SOD 4 MG TAB PO SCH (17:09)
[2017-07-06 20:10] VITALS: BP 108/59; PULSE 87; RESP 17; TEMP 99; O2SAT 100
[2017-07-06] MEDS: POTASSIUM CHLORIDE 20 MEQ CONTROLLED RELEASE TAB PO SCH (21:53)
[2017-07-06] MEDS: CIPROFLOXACIN 500 MG TAB PO SCH (21:53)
[2017-07-07 00:10] VITALS: BP 114/67; PULSE 88; RESP 18; TEMP 99.5; O2SAT 99
[2017-07-07] MEDS: SODIUM CHLORIDE 0.9% FLUSH 10 ML FLUSH IVF PRN (03:48)
[2017-07-07 04:38] LABS: AUTOMATED NEUTROPHIL # 4.7 TH/MM3 (1.8-7.7); EOSINOPHIL % 0.2 % (0.0-4.0); HEMATOCRIT 24.9 % (39.0-51.0); HEMO FLAGS DIFF FINAL; LYMPH % 8.1 % (9.0-44.0); LYMPHOCYTE # 0.4 TH/MM3 (1.0-4.8); MEAN CELL VOLUME 88.2 FL (80.0-100.0); MEAN CORPUSCULAR HEMOGLOBIN 29.3 PG (27.0-34.0); MEAN CORPUSCULAR HGB CONC 33.3 % (32.0-36.0); MONO % 0.8 % (0.0-8.0); NEUT % 90.9 % (16.0-70.0); PLATELET COUNT 245 TH/MM3 (150-450); RED BLOOD COUNT 2.83 MIL/MM3 (4.50-5.90); RED CELL DISTRIBUTION WIDTH 16.2 % (11.6-17.2); WHITE BLOOD COUNT 5.1 TH/MM3 (4.0-11.0)
[2017-07-07 04:45] LABS: INTERNATIONAL NORMALIZED RATIO 1.7 RATIO; PROTHROMBIN TIME - PATIENT 19.8 SEC (9.8-11.6)
[2017-07-07 05:07] LABS: ALT (GPT) 7 U/L (12-78); ANION GAP 9 MEQ/L (5-15); AST (GOT) 7 U/L (15-37); BICARBONATE 27.4 MEQ/L (21.0-32.0); BLOOD UREA NITROGEN 8 MG/DL (7-18); CHLORIDE 100 MEQ/L (98-107); GLOMERULAR FILTRATION RATE 134 ML/MIN (>89); MAGNESIUM 1.9 MG/DL (1.5-2.5); POTASSIUM 3.2 MEQ/L (3.5-5.1); SODIUM (NA) 136 MEQ/L (136-145)
[2017-07-07 05:08] LABS: ALKALINE PHOSPHATASE 73 U/L (45-117); TOTAL BILIRUBIN ADULT 0.3 MG/DL (0.2-1.0)
[2017-07-07 05:18] VITALS: BP 111/62; PULSE 80; RESP 17; TEMP 98.4; O2SAT 100
[2017-07-07] MEDS ORDERED: CIPR-9 PO (07:52)
[2017-07-07 08:00] VITALS: BP 116/67; PULSE 76; RESP 16; TEMP 98.6; O2SAT 100
--- NOTE | 2017-07-07 08:01 | PD.ONC.PN ---
Subjective Subjective Remarks Afebrile overnight. Sore throat improved. Ready to go home. No complaints. Objective Data Date Time Temp Pulse Resp B/P (MAP) Pulse Ox O2 Delivery O2 Flow Rate FiO2 07/07/17 05:18 98.4 80 17 111/62 (78) 100 07/07/17 00:10 99.5 88 18 114/67 (83) 99 07/06/17 20:10 99.0 87 17 108/59 (75) 100 07/06/17 16:00 99.9 86 16 121/70 (87) 99 07/06/17 12:00 99.7 87 16 138/76 (96) 99 07/07/17 07/07/17 07/07/17 07:00 15:00 23:00 Intake Total 120 ml Output Total 850 ml Balance -730 ml Result Diagram: 07/07/17 0350 07/07/17 0350 Laboratory Results Laboratory Tests Test 07/07/17 03:50 White Blood Count 5.1 TH/MM3 Red Blood Count 2.83 MIL/MM3 Hemoglobin 8.3 GM/DL Hematocrit 24.9 % Mean Corpuscular Volume 88.2 FL Mean Corpuscular Hemoglobin 29.3 PG Mean Corpuscular Hemoglobin Concent 33.3 % Red Cell Distribution Width 16.2 % Platelet Count 245 TH/MM3 Mean Platelet Volume 7.3 FL Neutrophils (%) (Auto) 90.9 % Lymphocytes (%) (Auto) 8.1 % Monocytes (%) (Auto) 0.8 % Eosinophils (%) (Auto) 0.2 % Basophils (%) (Auto) 0.0 % Neutrophils # (Auto) 4.7 TH/MM3 Lymphocytes # (Auto) 0.4 TH/MM3 Monocytes # (Auto) 0.0 TH/MM3 Eosinophils # (Auto) 0.0 TH/MM3 Basophils # (Auto) 0.0 TH/MM3 CBC Comment DIFF FINAL Differential Comment Prothrombin Time 19.8 SEC Prothromb Time International Ratio 1.7 RATIO Blood Urea Nitrogen 8 MG/DL Creatinine 0.75 MG/DL Random Glucose 105 MG/DL Total Protein 5.2 GM/DL Albumin 2.0 GM/DL Calcium Level 7.8 MG/DL Magnesium Level 1.9 MG/DL Alkaline Phosphatase 73 U/L Aspartate Amino Transf (AST/SGOT) 7 U/L Alanine Aminotransferase (ALT/SGPT) 7 U/L Total Bilirubin 0.3 MG/DL Sodium Level 136 MEQ/L Potassium Level 3.2 MEQ/L Chloride Level 100 MEQ/L Carbon Dioxide Level 27.4 MEQ/L Anion Gap 9 MEQ/L Estimat Glomerular Filtration Rate 134 ML/MIN Culture Results Microbiology Date/Time Source Procedure Growth Status 07/06/17 12:40 Throat Group A Streptococcus Screen Pending Received 07/06/17 12:40 Throat Group A Streptococcus Screen ([facility]) - Final Complete Administered Medications Medications (Trade) Dose Ordered Sig/Shyla Route PRN Reason Start Time Stop Time Status Last Admin Dose Admin Sodium Chloride (NS Flush) DAILY IVF 06/30/17 09:00 07/06/17 07:59 Heparin Sodium (Porcine) (Heparin Central Flush) DAILY IV FLUSH 06/30/17 09:00 07/05/17 09:00 Sodium Chloride (NS Flush) UNSCH PRN IVF SEE PROTOCOL 06/30/17 08:45 07/07/17 03:48 Heparin Sodium (Porcine) (Heparin Central Flush) UNSCH PRN IV FLUSH SEE PROTOCOL 06/30/17 08:45 07/07/17 03:48 Allopurinol (Zyloprim) 300 mg DAILY PO 06/30/17 09:00 07/06/17 07:58 Warfarin Sodium (Coumadin) 4 mg DAILY@16 PO 06/30/17 16:00 Future hold 07/06/17 17:09 Nifedipine (Procardia Xl) 90 mg DAILY PO 07/01/17 09:00 07/06/17 07:58 Pantoprazole Sodium (Protonix) 40 mg DAILY PO 07/01/17 09:00 07/06/17 07:58 Clonidine (Catapres) 0.1 mg Q6H PRN PO SEE LABEL COMMENTS 07/01/17 08:45 07/04/17 05:18 Lisinopril (Prinivil) 10 mg DAILY PO 07/05/17 09:00 07/06/17 07:58 Multi-Ingredient Mouthwash/Gargle (Magic Mouthwash Adult Liq) 5 ml QID SWISH-SWAL 07/06/17 13:00 07/06/17 21:00 Potassium Chloride (KCl) 20 meq Q12HR PO 07/06/17 21:00 07/06/17 21:53 Ciprofloxacin (Cipro) 500 mg Q12HR PO 07/06/17 21:00 07/06/17 21:53 Objective Remarks GENERAL: Thin middle aged male sitting up in bed in nad. SKIN: Warm and dry. HEAD: Normocephalic. Pharynx: pharynx non-injected. no lesions. tonsils atrophic EYES: No injection or drainage. NECK: Supple, trachea midline. CARDIOVASCULAR: Regular rate and rhythm RESPIRATORY: Breath sounds equal bilaterally. No accessory muscle use. GASTROINTESTINAL: Abdomen soft, non-tender, nondistended. EXTREMITIES: No cyanosis NEUROLOGICAL: awake and alert, moving extremities. 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 Plan 1. discharge today 2. follow up at clinic today for Neulasta shot 3. follow up at clinic Thursday and Thursday for CBC and appointment with Tia on Thursday 4. d/c Lisinopril--elevated blood pressure likely due to steroids, will resume home hypertensive regimen. Attending Statement The exam, history, and the medical decision-making described in the above note were completed with the assistance of the mid-level provider. I reviewed and agree with the findings presented. I attest that I had a [id number] encounter with the patient on the same day, and personally performed and documented my assessment and findings in the medical record. Late entry. Remains afebrile. Sore throat resolved. Will d/c today. F/u hematology clinic for neulasta. Problem Qualifiers (1) Non-Hodgkin lymphoma: Qualified Codes: C83.38 - Diffuse large b-cell lymphoma, lymph nodes of multiple sites (2) Pulmonary emboli: (3) Hypertension: Qualified Codes: I10 - Essential (primary) hypertension Brenda Platt Jul 07, 2017 08:01 Ruslan Connelly MD Jul 07, 2017 17:17
[2017-07-07] MEDS: NIFEdipine 90 MG SUSTAINED RELEASE TAB PO SCH (08:35)
[2017-07-07] MEDS: CIPROFLOXACIN 500 MG TAB PO SCH (08:35)
[2017-07-07] MEDS: ALLOPURINOL 300 MG TAB PO SCH (08:35)
[2017-07-07] MEDS: PANTOPRAZOLE SOD 40 MG DELAYED RELEASE TAB PO SCH (08:35)
[2017-07-07] MEDS: NYSTAT/DIPHENHY/LIDO MOUTHWASH (Adult) 120ML SWISH-SWAL SCH (08:35)
[2017-07-07] MEDS: POTASSIUM CHLORIDE 20 MEQ CONTROLLED RELEASE TAB PO SCH (08:36)
[2017-07-07] MEDS: LISINOPRIL 10 MG TAB PO SCH (08:36)
[2017-07-07] MEDS: SODIUM CHLORIDE 0.9% FLUSH 10 ML FLUSH IVF SCH (08:36)
[2017-07-07 12:00] VITALS: BP 120/64; PULSE 69; RESP 18; TEMP 98; O2SAT 99
== END 2017-07-07 13:08 | disposition home or self-care (01) | DRG 847 ==
LOC: HOCB 06-30 07:01 → OBSVTOIN 06-30 08:38
PROVIDERS: ADMIT Internal Medicine Hematology & Oncology; ATTEND Internal Medicine Hematology & Oncology
DX: Z51.11 Encounter for antineoplastic chemotherapy (principal); C83.38 Diffuse large B-cell lymphoma, lymph nodes of multiple sites; I10 Essential (primary) hypertension; Z86.711 Personal history of pulmonary embolism; Z87.891 Personal history of nicotine dependence; Z79.01 Long term (current) use of anticoagulants; J02.9 Acute pharyngitis, unspecified
CPT/HCPCS: 36415; 71020; 80053; 83615; 83735; 84100; 84550; 85025; 85610; 87081; 87880; 96372; 96401; 96413; 96415; J1100; J1626; J1642; J2505; J7030; J7040; J7512; J9000; J9070; J9181; J9310; J9370; Q0163

== ENCOUNTER 2017-07-21 09:15 | Inpatient (IN) | payer MEDICAID, OTHER ==
[~2017-07-21] VITALS: Ht 188 cm; Wt 58.7 kg
[~2017-07-21 09:15] MED LIST changes: -ALLO300 PO; +CIPR-9 PO; +COUM4TAB PO
[2017-07-22 06:00] VITALS: BP 161/80; PULSE 51; RESP 16; TEMP 96.7; O2SAT 100
[2017-07-22 08:30] VITALS: BP 131/84; PULSE 78; RESP 18; TEMP 97.1; O2SAT 99
[2017-07-22] MEDS ORDERED: MAGNESIUM HYDROXIDE SUSP 30 ML CUP PO PRN (08:45)
[2017-07-22] MEDS: NIFEdipine 90 MG SUSTAINED RELEASE TAB PO SCH (09:00)
--- NOTE | 2017-07-22 09:01 | MH ---
cc: SHADY MAYORGA M.D. DATE OF ADMISSION: 07/22/2017 ADMISSION DIAGNOSIS High-grade triple-hit lymphoma, admitted for EPOCH chemotherapy. HISTORY OF PRESENT ILLNESS The patient is a very pleasant 47-year-old male first admitted in early April with abdominal pain. He was found to have extensive mediastinal, cervical and bilateral axillary adenopathy. He also had extensive mesenteric and retroperitoneal adenopathy. Excisional biopsy of the left axillary lymph node showed diffuse large B-cell lymphoma with triple-hit. He had one dose of Rituxan and CHOP at a reduced dose because at that time he had sepsis and renal failure and was on dialysis. He eventually recovered. He subsequently received two cycles of Rituxan with EPOCH. His last chemotherapy was three weeks ago. He tolerated it very well. His performance status continues to improve. He is now walking around the house more. He denies any fevers, chills or night sweats. He is eating better. Denies any mouth sores. Denies chest pain, palpitations, shortness of breath or cough. Denies nausea, vomiting, diarrhea, abdominal pain. Denies dysuria or hematuria. Denies any headache. Denies any focal numbness or weakness. PAST MEDICAL HISTORY 1. High-grade lymphoma. 2. Hypertension. 3. Pulmonary embolism. 4. Renal failure, which has resolved. He was on temporary dialysis. PAST SURGICAL HISTORY 1. Bone marrow aspirate and biopsy. 2. Left axillary lymph node resection. 3. Port placement. 4. Dialysis catheter placement and removal. FAMILY HISTORY He has five brothers and three sisters, all healthy. SOCIAL HISTORY He stopped smoking several months ago. He also stopped drinking. ALLERGIES No known drug allergies. MEDICATIONS Outpatient medications: 1. Protonix. 2. Coumadin. 3. Nifedipine. REVIEW OF SYSTEMS CONSTITUTIONAL: As above. EYES: Negative. ENT: Negative. CARDIOVASCULAR: No chest pain or palpitations. RESPIRATORY: Denies shortness of breath or cough. GI: Negative. : Negative. MUSCULOSKELETAL: Negative. HEMATOLOGY: As above. ENDOCRINE: Negative. DERMATOLOGIC: Negative. PSYCHIATRIC: Negative. NEUROLOGIC: Negative. PHYSICAL EXAMINATION VITAL SIGNS: Temperature afebrile. Vitals stable. GENERAL: He is alert and oriented x3, in no acute distress. HEENT: Atraumatic, normocephalic. Pupils equal, round and reactive to light. Extraocular muscles intact. No scleral icterus. Oropharynx dry mucosa, no lesion, no thrush, no mucositis. NECK: No thyromegaly. There is still some nodularity in the right supraclavicular area. LYMPHATIC: There is still a palpable mass in the left axillary area. CARDIOVASCULAR: Regular S1, S2. No murmur. LUNGS: Clear to auscultation without wheezing or rhonchi. ABDOMEN: Soft, nontender. I could not palpate the liver or spleen. EXTREMITIES: No cyanosis, clubbing or edema. BACK: No paravertebral tenderness. SKIN: No rash or petechiae. NEUROLOGIC: Nonfocal. LABORATORY DATA Reviewed. ASSESSMENT 1. 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 CT showed diffuse adenopathy in bilateral axillary and supraclavicular areas, mediastinum and retroperitoneum. Bone marrow was not involved. He had one cycle of Rituxan and CHOP followed by two cycles of Rituxan and EPOCH. He tolerated it very well. He just had another Rituxan yesterday in the clinic. He still has a palpable lesion in the left axillary area. There was some nodularity in the right supraclavicular area. His performance status, however, continues to improve. I am going to arrange for him to proceed with cycle 3 of EPOCH. I have previously talked to the family about consolidation bone marrow transplant but they have been reluctant. 2. History of pulmonary embolism. He had a massive pulmonary embolism during his initial admission. He had TPA. He also had a temporary IVC filter placed which was removed. He has no pulmonary symptoms. He is currently on Coumadin. He has no lower extremity edema. No evidence of recurrent clot. 3. History of pleural effusion, status post thoracentesis of the right lung. No apparent reaccumulation at this time. 4. History of renal failure requiring temporary dialysis. The renal failure has resolved. PLAN 1. Arrange for cycle 3 of EPOCH per protocol. 2. Continue Coumadin. 3. Continue allopurinol. 4. Monitor labs. MD MELA Balbuena/LYDIA /8:16 AM 8:27 AM RAVINDRA
[2017-07-22] MEDS ORDERED: DEXAMETHASONE SOD PHOS 20 MG/5 ML VIAL IV SCH (11:00)
[2017-07-22] MEDS ORDERED: predniSONE 5 MG/5 ML CUP PO SCH (11:30)
[2017-07-22 11:50] VITALS: BP 117/69; PULSE 85; RESP 20; TEMP 98; O2SAT 99
[2017-07-22 11:52] LABS: AUTOMATED NEUTROPHIL # 10.5 TH/MM3 (1.8-7.7); BASOPHIL % 0.4 % (0.0-2.0); EOSINOPHIL % 0.1 % (0.0-4.0); HEMATOCRIT 24.9 % (39.0-51.0); HEMO FLAGS DIFF FINAL; LYMPH % 7.5 % (9.0-44.0); LYMPHOCYTE # 0.9 TH/MM3 (1.0-4.8); MEAN CELL VOLUME 86.6 FL (80.0-100.0); MEAN CORPUSCULAR HEMOGLOBIN 27.9 PG (27.0-34.0); MEAN CORPUSCULAR HGB CONC 32.2 % (32.0-36.0); MONO % 4.6 % (0.0-8.0); NEUT % 87.4 % (16.0-70.0); PLATELET COUNT 386 TH/MM3 (150-450); RED BLOOD COUNT 2.87 MIL/MM3 (4.50-5.90); RED CELL DISTRIBUTION WIDTH 17.3 % (11.6-17.2)
[2017-07-22 11:57] LABS: INTERNATIONAL NORMALIZED RATIO 2.4 RATIO; PROTHROMBIN TIME - PATIENT 27.9 SEC (9.8-11.6)
[2017-07-22 12:19] LABS: ALKALINE PHOSPHATASE 105 U/L (45-117); ALT (GPT) 8 U/L (12-78); ANION GAP 12 MEQ/L (5-15); AST (GOT) 8 U/L (15-37); BICARBONATE 24.3 MEQ/L (21.0-32.0); BLOOD UREA NITROGEN 3 MG/DL (7-18); CHLORIDE 103 MEQ/L (98-107); GLOMERULAR FILTRATION RATE 219 ML/MIN (>89); LDH SERUM 259 U/L (87-241); SODIUM (NA) 139 MEQ/L (136-145); TOTAL BILIRUBIN ADULT 0.2 MG/DL (0.2-1.0); URIC ACID 2.6 MG/DL (2.6-7.2)
[2017-07-22 12:21] LABS: POTASSIUM 2.7 MEQ/L (3.5-5.1)
[2017-07-22] MEDS: ALLOPURINOL 300 MG TAB PO SCH (13:56)
[2017-07-22] MEDS: GRANISETRON HCL 1 MG/ML VIAL IV SCH (13:57)
[2017-07-22] MEDS: DRONABINOL 5 MG CAP PO SCH ×2 (13:57→19:02)
[2017-07-22] MEDS ORDERED: POTASSIUM CHLORIDE 20 MEQ CONTROLLED RELEASE TAB PO ONE (14:00)
[2017-07-22] MEDS: predniSONE 50 MG TAB PO SCH (14:01)
[2017-07-22] MEDS: predniSONE 5 MG/5 ML CUP PO SCH (14:02)
[2017-07-22 15:50] VITALS: BP 122/71; PULSE 88; RESP 20; TEMP 97.8; O2SAT 100
[2017-07-22] MEDS: ETOPOSIDE IV SCH (15:58)
[2017-07-22] MEDS: [UNRECOGNIZED DRUG - OTHER] IV SCH (15:58)
[2017-07-22] MEDS: VINCRISTINE IV SCH (15:58)
[2017-07-22] MEDS: DOXORUBICIN IV SCH (15:58)
[2017-07-22] MEDS: WARFARIN SOD 4 MG TAB PO SCH (16:00)
[2017-07-22 16:30] VITALS: BP 129/83; PULSE 86; RESP 18; TEMP 98; O2SAT 99
[2017-07-22 20:00] VITALS: BP 120/70; PULSE 42; RESP 17; TEMP 97.6; O2SAT 100
[2017-07-23] MEDS: predniSONE 50 MG TAB PO SCH ×2 (01:27→14:00)
[2017-07-23] MEDS: predniSONE 5 MG/5 ML CUP PO SCH (01:27)
[2017-07-23 01:30] VITALS: BP 150/81; PULSE 63; RESP 17; TEMP 96; O2SAT 100
[2017-07-23 06:00] VITALS: BP 161/80; PULSE 51; RESP 16; TEMP 96.7; O2SAT 100
[2017-07-23 06:44] LABS: AUTOMATED NEUTROPHIL # 13.2 TH/MM3 (1.8-7.7); BASOPHIL % 0.1 % (0.0-2.0); HEMATOCRIT 28.8 % (39.0-51.0); HEMO FLAGS DIFF FINAL; LYMPH % 3.3 % (9.0-44.0); LYMPHOCYTE # 0.4 TH/MM3 (1.0-4.8); MEAN CELL VOLUME 87.8 FL (80.0-100.0); MEAN CORPUSCULAR HEMOGLOBIN 28.1 PG (27.0-34.0); MONO % 0.8 % (0.0-8.0); NEUT % 95.8 % (16.0-70.0); PLATELET COUNT 432 TH/MM3 (150-450); RED BLOOD COUNT 3.28 MIL/MM3 (4.50-5.90); RED CELL DISTRIBUTION WIDTH 16.9 % (11.6-17.2); WHITE BLOOD COUNT 13.7 TH/MM3 (4.0-11.0)
[2017-07-23 06:49] LABS: INTERNATIONAL NORMALIZED RATIO 3.4 RATIO
[2017-07-23 06:59] LABS: ALT (GPT) 9 U/L (12-78); ANION GAP 8 MEQ/L (5-15); AST (GOT) 7 U/L (15-37); BICARBONATE 25.9 MEQ/L (21.0-32.0); BLOOD UREA NITROGEN 10 MG/DL (7-18); CHLORIDE 106 MEQ/L (98-107); GLOMERULAR FILTRATION RATE 184 ML/MIN (>89); POTASSIUM 4.2 MEQ/L (3.5-5.1); SODIUM (NA) 140 MEQ/L (136-145)
[2017-07-23 07:13] LABS: ALKALINE PHOSPHATASE 113 U/L (45-117); LDH SERUM 231 U/L (87-241); TOTAL BILIRUBIN ADULT 0.1 MG/DL (0.2-1.0)
[2017-07-23] MEDS: NIFEdipine 90 MG SUSTAINED RELEASE TAB PO SCH (07:57)
[2017-07-23] MEDS: ALLOPURINOL 300 MG TAB PO SCH (07:58)
[2017-07-23 08:00] VITALS: BP 124/85; PULSE 51; RESP 16; TEMP 97.2; O2SAT 99
--- NOTE | 2017-07-23 10:29 | PD.ONC.PN ---
Subjective Subjective Remarks Afebrile "I feel pretty good today" Tolerating chemotherapy States he is going to get up and walk around his room later today Objective Data Date Time Temp Pulse Resp B/P (MAP) Pulse Ox O2 Delivery O2 Flow Rate FiO2 07/23/17 08:00 97.2 51 16 124/85 (98) 99 07/23/17 06:00 96.7 51 16 161/80 (107) 100 07/23/17 01:30 96.0 63 17 150/81 (104) 100 07/22/17 20:00 97.6 42 17 120/70 (87) 100 07/22/17 16:30 98.0 86 18 129/83 (98) 99 07/22/17 15:50 97.8 88 20 122/71 (88) 100 07/22/17 11:50 98.0 85 20 117/69 (85) 99 07/23/17 07/23/17 07/23/17 07:00 15:00 23:00 Intake Total 210 ml Output Total 800 ml Balance -590 ml Result Diagram: 07/23/1730 07/23/17 0530 Laboratory Results Laboratory Tests Test 07/22/17 10:39 07/23/17 05:30 White Blood Count 12.0 TH/MM3 13.7 TH/MM3 Red Blood Count 2.87 MIL/MM3 3.28 MIL/MM3 Hemoglobin 8.0 GM/DL 9.2 GM/DL Hematocrit 24.9 % 28.8 % Mean Corpuscular Volume 86.6 FL 87.8 FL Mean Corpuscular Hemoglobin 27.9 PG 28.1 PG Mean Corpuscular Hemoglobin Concent 32.2 % 32.0 % Red Cell Distribution Width 17.3 % 16.9 % Platelet Count 386 TH/MM3 432 TH/MM3 Mean Platelet Volume 7.0 FL 7.1 FL Neutrophils (%) (Auto) 87.4 % 95.8 % Lymphocytes (%) (Auto) 7.5 % 3.3 % Monocytes (%) (Auto) 4.6 % 0.8 % Eosinophils (%) (Auto) 0.1 % 0.0 % Basophils (%) (Auto) 0.4 % 0.1 % Neutrophils # (Auto) 10.5 TH/MM3 13.2 TH/MM3 Lymphocytes # (Auto) 0.9 TH/MM3 0.4 TH/MM3 Monocytes # (Auto) 0.5 TH/MM3 0.1 TH/MM3 Eosinophils # (Auto) 0.0 TH/MM3 0.0 TH/MM3 Basophils # (Auto) 0.0 TH/MM3 0.0 TH/MM3 CBC Comment DIFF FINAL DIFF FINAL Differential Comment Prothrombin Time 27.9 SEC 40.0 SEC Prothromb Time International Ratio 2.4 RATIO 3.4 RATIO Blood Urea Nitrogen 3 MG/DL 10 MG/DL Creatinine 0.49 MG/DL 0.57 MG/DL Random Glucose 107 MG/DL 131 MG/DL Total Protein 6.4 GM/DL 6.8 GM/DL Albumin 2.4 GM/DL 2.4 GM/DL Calcium Level 8.9 MG/DL 9.2 MG/DL Uric Acid 2.6 MG/DL 2.0 MG/DL Alkaline Phosphatase 105 U/L 113 U/L Aspartate Amino Transf (AST/SGOT) 8 U/L 7 U/L Alanine Aminotransferase (ALT/SGPT) 8 U/L 9 U/L Lactate Dehydrogenase 259 U/L 231 U/L Total Bilirubin 0.2 MG/DL 0.1 MG/DL Sodium Level 139 MEQ/L 140 MEQ/L Potassium Level 2.7 MEQ/L 4.2 MEQ/L Chloride Level 103 MEQ/L 106 MEQ/L Carbon Dioxide Level 24.3 MEQ/L 25.9 MEQ/L Anion Gap 12 MEQ/L 8 MEQ/L Estimat Glomerular Filtration Rate 219 ML/MIN 184 ML/MIN Administered Medications Medications (Trade) Dose Ordered Sig/Shyla Route PRN Reason Start Time Stop Time Status Last Admin Dose Admin Dronabinol (Marinol) 5 mg BID@11,16 PO 07/22/17 11:00 07/22/17 19:02 Nifedipine (Procardia Xl) 90 mg DAILY PO 07/22/17 09:00 07/23/17 07:57 Allopurinol (Zyloprim) 300 mg DAILY PO 07/22/17 09:00 07/23/17 07:58 Granisetron HCl (Kytril Inj) 1 mg DAILY@1130 IV 07/22/17 11:30 07/26/17 11:31 07/22/17 13:57 Etoposide 89 mg/ Doxorubicin HCl 17.8 mg/ Vincristine Sulfate 0.712 mg/ Sodium Chloride 514.062 ml @ 21.419 mls/hr DAILY@1400 IV 07/22/17 14:00 07/26/17 13:59 07/22/17 15:58 Prednisone (Deltasone) 100 mg Q12H PO 07/22/17 14:00 07/27/17 02:01 07/23/17 01:27 Objective Remarks GENERAL: Middle-aged male resting in bed in no acute distress SKIN: Warm and dry. HEAD: Normocephalic. EYES: No scleral icterus. No injection or drainage. NECK: Supple, trachea midline. No JVD or lymphadenopathy. CARDIOVASCULAR: Regular rate and rhythm without murmurs. RESPIRATORY: Clear posteriorly. Breathing unlabored. GASTROINTESTINAL: Abdomen soft, non-tender, nondistended. EXTREMITIES: No cyanosis, or edema. MUSCULOSKELETAL: Adequate muscle tone. NEUROLOGICAL: No obvious focal deficit. Awake, alert, and oriented x3. 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 Patient tolerating chemotherapy 2. Continue allopurinol 3. Add on prn Vasotec for blood pressure greater than 160/90 4. Stop Dexamethasone. Continue prednisone 5. Supportive care. Attending Statement The exam, history, and the medical decision-making described in the above note were completed with the assistance of the mid-level provider. I reviewed and agree with the findings presented. I attest that I had a [id number] encounter with the patient on the same day, and personally performed and documented my assessment and findings in the medical record. Tolerating chemotherapy well. BP trended higher. Monitor CBC. Continue EPOCH per protocol. Tia Montenegro Jul 23, 2017 10:29 Ruslan Connelly MD Jul 23, 2017 14:55
[2017-07-23] MEDS: DRONABINOL 5 MG CAP PO SCH ×2 (10:55→16:48)
[2017-07-23] MEDS: GRANISETRON HCL 1 MG/ML VIAL IV SCH (10:55)
[2017-07-23 13:00] VITALS: BP 140/89; PULSE 89; RESP 18; TEMP 97.3; O2SAT 100
[2017-07-23 16:00] VITALS: BP 136/76; PULSE 86; RESP 18; TEMP 98.1; O2SAT 100
[2017-07-23] MEDS: WARFARIN SOD 4 MG TAB PO SCH (16:00)
[2017-07-23] MEDS: DOXORUBICIN IV SCH (16:11)
[2017-07-23] MEDS: [UNRECOGNIZED DRUG - OTHER] IV SCH (16:11)
[2017-07-23] MEDS: ETOPOSIDE IV SCH (16:11)
[2017-07-23] MEDS: VINCRISTINE IV SCH (16:11)
[2017-07-24] VITALS (7 sets, daily range): BP systolic 123–159; BP diastolic 79–99; PULSE 52–80; RESP 16–20; TEMP 97.1–97.8; O2SAT 99–100
[2017-07-24] MEDS: predniSONE 50 MG TAB PO SCH ×2 (01:13→16:00)
[2017-07-24] MEDS: ENALAPRILAT 1.25 MG/ML VIAL IV PUSH PRN (04:32)
[2017-07-24 05:14] LABS: AUTOMATED NEUTROPHIL # 18.6 TH/MM3 (1.8-7.7); HEMATOCRIT 27.7 % (39.0-51.0); HEMO FLAGS DIFF FINAL; LYMPH % 2.4 % (9.0-44.0); LYMPHOCYTE # 0.5 TH/MM3 (1.0-4.8); MEAN CELL VOLUME 87.2 FL (80.0-100.0); MEAN CORPUSCULAR HEMOGLOBIN 28.5 PG (27.0-34.0); MEAN CORPUSCULAR HGB CONC 32.7 % (32.0-36.0); MONO % 1.7 % (0.0-8.0); NEUT % 95.9 % (16.0-70.0); PLATELET COUNT 460 TH/MM3 (150-450); RED BLOOD COUNT 3.18 MIL/MM3 (4.50-5.90); RED CELL DISTRIBUTION WIDTH 17.1 % (11.6-17.2); WHITE BLOOD COUNT 19.4 TH/MM3 (4.0-11.0)
[2017-07-24 05:22] LABS: INTERNATIONAL NORMALIZED RATIO 4.4 RATIO; PROTHROMBIN TIME - PATIENT 52.2 SEC (9.8-11.6)
[2017-07-24 08:18] LABS: BLOOD UREA NITROGEN 10 MG/DL (7-18); GLOMERULAR FILTRATION RATE 294 ML/MIN (>89); URIC ACID 1.9 MG/DL (2.6-7.2)
[2017-07-24 08:19] LABS: ALKALINE PHOSPHATASE 105 U/L (45-117); ALT (GPT) 9 U/L (12-78); ANION GAP 9 MEQ/L (5-15); AST (GOT) 9 U/L (15-37); BICARBONATE 25.4 MEQ/L (21.0-32.0); CHLORIDE 102 MEQ/L (98-107); LDH SERUM 187 U/L (87-241); POTASSIUM 3.7 MEQ/L (3.5-5.1); SODIUM (NA) 136 MEQ/L (136-145); TOTAL BILIRUBIN ADULT 0.1 MG/DL (0.2-1.0)
[2017-07-24] MEDS: ALLOPURINOL 300 MG TAB PO SCH (08:47)
[2017-07-24] MEDS: NIFEdipine 90 MG SUSTAINED RELEASE TAB PO SCH (08:47)
[2017-07-24] MEDS: DRONABINOL 5 MG CAP PO SCH ×2 (11:44→18:12)
[2017-07-24] MEDS ORDERED: PANTOPRAZOLE SOD 40 MG DELAYED RELEASE TAB PO ONE (12:15)
--- NOTE | 2017-07-24 12:15 | PD.ONC.PN ---
Subjective Subjective Remarks Afebrile overnight. Patient resting in bed in nad. No complaints. Tolerating chemotherapy. Objective Data Date Time Temp Pulse Resp B/P (MAP) Pulse Ox O2 Delivery O2 Flow Rate FiO2 07/24/17 04:25 97.5 77 20 150/99 (116) 100 07/24/17 00:03 97.6 71 18 152/91 (111) 100 07/23/17 16:00 98.1 86 18 136/76 (96) 100 07/23/17 13:00 97.3 89 18 140/89 (106) 100 07/24/17 07/24/17 07/24/17 07:00 15:00 23:00 Intake Total 524 ml Balance 524 ml Result Diagram: 07/24/17 0422 07/24/17 0422 Laboratory Results Laboratory Tests Test 07/24/17 04:22 White Blood Count 19.4 TH/MM3 Red Blood Count 3.18 MIL/MM3 Hemoglobin 9.1 GM/DL Hematocrit 27.7 % Mean Corpuscular Volume 87.2 FL Mean Corpuscular Hemoglobin 28.5 PG Mean Corpuscular Hemoglobin Concent 32.7 % Red Cell Distribution Width 17.1 % Platelet Count 460 TH/MM3 Mean Platelet Volume 7.2 FL Neutrophils (%) (Auto) 95.9 % Lymphocytes (%) (Auto) 2.4 % Monocytes (%) (Auto) 1.7 % Eosinophils (%) (Auto) 0.0 % Basophils (%) (Auto) 0.0 % Neutrophils # (Auto) 18.6 TH/MM3 Lymphocytes # (Auto) 0.5 TH/MM3 Monocytes # (Auto) 0.3 TH/MM3 Eosinophils # (Auto) 0.0 TH/MM3 Basophils # (Auto) 0.0 TH/MM3 CBC Comment DIFF FINAL Differential Comment Prothrombin Time 52.2 SEC Prothromb Time International Ratio 4.4 RATIO Blood Urea Nitrogen 10 MG/DL Creatinine 0.38 MG/DL Random Glucose 114 MG/DL Total Protein 6.5 GM/DL Albumin 2.3 GM/DL Calcium Level 8.9 MG/DL Uric Acid 1.9 MG/DL Alkaline Phosphatase 105 U/L Aspartate Amino Transf (AST/SGOT) 9 U/L Alanine Aminotransferase (ALT/SGPT) 9 U/L Lactate Dehydrogenase 187 U/L Total Bilirubin 0.1 MG/DL Sodium Level 136 MEQ/L Potassium Level 3.7 MEQ/L Chloride Level 102 MEQ/L Carbon Dioxide Level 25.4 MEQ/L Anion Gap 9 MEQ/L Estimat Glomerular Filtration Rate 294 ML/MIN Administered Medications Medications (Trade) Dose Ordered Sig/Shyla Route PRN Reason Start Time Stop Time Status Last Admin Dose Admin Dronabinol (Marinol) 5 mg BID@11,16 PO 07/22/17 11:00 07/24/17 11:44 Nifedipine (Procardia Xl) 90 mg DAILY PO 07/22/17 09:00 07/24/17 08:47 Allopurinol (Zyloprim) 300 mg DAILY PO 07/22/17 09:00 07/24/17 08:47 Granisetron HCl (Kytril Inj) 1 mg DAILY@1130 IV 07/22/17 11:30 07/26/17 11:31 07/23/17 10:55 Etoposide 89 mg/ Doxorubicin HCl 17.8 mg/ Vincristine Sulfate 0.712 mg/ Sodium Chloride 514.062 ml @ 21.419 mls/hr DAILY@1400 IV 07/22/17 14:00 07/26/17 13:59 07/23/17 16:11 Prednisone (Deltasone) 100 mg Q12H PO 07/22/17 14:00 07/27/17 02:01 07/24/17 01:13 Enalaprilat (Vasotec Inj) 1.25 mg Q6H PRN IV PUSH SBP>160, DBP>90 07/23/17 09:00 07/24/17 04:32 Objective Remarks GENERAL: Middle aged male sitting up in bed in [facility]. SKIN: Warm and dry. HEAD: Normocephalic. EYES: No injection or drainage. NECK: Supple, trachea midline. CARDIOVASCULAR: Regular rate and rhythm RESPIRATORY: Breath sounds equal bilaterally. No accessory muscle use. GASTROINTESTINAL: Abdomen soft, non-tender, nondistended. EXTREMITIES: No cyanosis MUSCULOSKELETAL: Adequate muscle tone. NEUROLOGICAL: awake and alert, normal speech. moving all extremities. 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 Patient tolerating chemotherapy--starting D3 of EPOCH at 1600 today. chemotherapy will tentatively be completed on 07/26 in the afternoon. 2. Continue allopurinol 3. hold coumadin today for elevated INR Attending Statement The exam, history, and the medical decision-making described in the above note were completed with the assistance of the mid-level provider. I reviewed and agree with the findings presented. I attest that I had a [id number] encounter with the patient on the same day, and personally performed and documented my assessment and findings in the medical record. Tolerating EPOCh well. No significant side effect. BP stable. Continue to titrate coumadin. Continue chemotx. Problem Qualifiers (1) Non-Hodgkin lymphoma: Qualified Codes: C83.38 - Diffuse large b-cell lymphoma, lymph nodes of multiple sites Brenda Platt Jul 24, 2017 12:15 Ruslan Connelly MD Jul 24, 2017 14:52
[2017-07-24] MEDS: GRANISETRON HCL 1 MG/ML VIAL IV SCH (12:34)
[2017-07-24] MEDS: [UNRECOGNIZED DRUG - OTHER] IV SCH (16:01)
[2017-07-24] MEDS: DOXORUBICIN IV SCH (16:01)
[2017-07-24] MEDS: VINCRISTINE IV SCH (16:01)
[2017-07-24] MEDS: ETOPOSIDE IV SCH (16:01)
[2017-07-25] MEDS: predniSONE 50 MG TAB PO SCH ×2 (01:40→13:15)
[2017-07-25 04:21] VITALS: BP 129/88; PULSE 73; RESP 19; TEMP 97.7; O2SAT 100
[2017-07-25 06:35] LABS: AUTOMATED NEUTROPHIL # 12.7 TH/MM3 (1.8-7.7); BASOPHIL % 0.1 % (0.0-2.0); HEMATOCRIT 27.7 % (39.0-51.0); HEMO FLAGS DIFF FINAL; LYMPH % 2.3 % (9.0-44.0); LYMPHOCYTE # 0.3 TH/MM3 (1.0-4.8); MEAN CELL VOLUME 86.8 FL (80.0-100.0); MEAN CORPUSCULAR HEMOGLOBIN 28.5 PG (27.0-34.0); MEAN CORPUSCULAR HGB CONC 32.8 % (32.0-36.0); MONO % 2.3 % (0.0-8.0); NEUT % 95.3 % (16.0-70.0); PLATELET COUNT 408 TH/MM3 (150-450); RED BLOOD COUNT 3.19 MIL/MM3 (4.50-5.90); WHITE BLOOD COUNT 13.3 TH/MM3 (4.0-11.0)
[2017-07-25 07:35] LABS: ALKALINE PHOSPHATASE 95 U/L (45-117); ALT (GPT) 15 U/L (12-78); ANION GAP 8 MEQ/L (5-15); AST (GOT) 10 U/L (15-37); BICARBONATE 27.9 MEQ/L (21.0-32.0); BLOOD UREA NITROGEN 12 MG/DL (7-18); CHLORIDE 101 MEQ/L (98-107); GLOMERULAR FILTRATION RATE 255 ML/MIN (>89); LDH SERUM 161 U/L (87-241); POTASSIUM 3.3 MEQ/L (3.5-5.1); SODIUM (NA) 137 MEQ/L (136-145); TOTAL BILIRUBIN ADULT 0.1 MG/DL (0.2-1.0); URIC ACID 2.1 MG/DL (2.6-7.2)
--- NOTE | 2017-07-25 08:48 | PD.ONC.PN ---
Subjective Subjective Remarks Afebrile overnight. Patient resting in bed in nad. Tolerated chemotherapy overnight. urinating well. No nausea. Objective Data Date Time Temp Pulse Resp B/P (MAP) Pulse Ox O2 Delivery O2 Flow Rate FiO2 07/25/17 04:21 97.7 73 19 129/88 (102) 100 07/24/17 23:54 97.7 80 19 137/98 (111) 99 07/24/17 21:45 97.5 77 18 123/83 (96) 100 07/24/17 16:44 97.8 63 16 138/83 (101) 100 07/24/17 12:00 97.5 52 18 140/79 (99) 100 07/25/17 07/25/17 07/25/17 07:00 15:00 23:00 Intake Total 240 ml Output Total 770 ml Balance -530 ml Result Diagram: 07/25/17 0419 07/25/17 0419 Laboratory Results Laboratory Tests Test 07/25/17 04:19 White Blood Count 13.3 TH/MM3 Red Blood Count 3.19 MIL/MM3 Hemoglobin 9.1 GM/DL Hematocrit 27.7 % Mean Corpuscular Volume 86.8 FL Mean Corpuscular Hemoglobin 28.5 PG Mean Corpuscular Hemoglobin Concent 32.8 % Red Cell Distribution Width 17.0 % Platelet Count 408 TH/MM3 Mean Platelet Volume 7.4 FL Neutrophils (%) (Auto) 95.3 % Lymphocytes (%) (Auto) 2.3 % Monocytes (%) (Auto) 2.3 % Eosinophils (%) (Auto) 0.0 % Basophils (%) (Auto) 0.1 % Neutrophils # (Auto) 12.7 TH/MM3 Lymphocytes # (Auto) 0.3 TH/MM3 Monocytes # (Auto) 0.3 TH/MM3 Eosinophils # (Auto) 0.0 TH/MM3 Basophils # (Auto) 0.0 TH/MM3 CBC Comment DIFF FINAL Differential Comment Prothrombin Time 35.0 SEC Prothromb Time International Ratio 3.0 RATIO Blood Urea Nitrogen 12 MG/DL Creatinine 0.43 MG/DL Random Glucose 114 MG/DL Total Protein 6.4 GM/DL Albumin 2.4 GM/DL Calcium Level 9.2 MG/DL Uric Acid 2.1 MG/DL Alkaline Phosphatase 95 U/L Aspartate Amino Transf (AST/SGOT) 10 U/L Alanine Aminotransferase (ALT/SGPT) 15 U/L Lactate Dehydrogenase 161 U/L Total Bilirubin 0.1 MG/DL Sodium Level 137 MEQ/L Potassium Level 3.3 MEQ/L Chloride Level 101 MEQ/L Carbon Dioxide Level 27.9 MEQ/L Anion Gap 8 MEQ/L Estimat Glomerular Filtration Rate 255 ML/MIN Administered Medications Medications (Trade) Dose Ordered Sig/Shyla Route PRN Reason Start Time Stop Time Status Last Admin Dose Admin Dronabinol (Marinol) 5 mg BID@11,16 PO 07/22/17 11:00 07/24/17 18:12 Nifedipine (Procardia Xl) 90 mg DAILY PO 07/22/17 09:00 07/24/17 08:47 Allopurinol (Zyloprim) 300 mg DAILY PO 07/22/17 09:00 07/24/17 08:47 Granisetron HCl (Kytril Inj) 1 mg DAILY@1130 IV 07/22/17 11:30 07/26/17 11:31 07/24/17 12:34 Etoposide 89 mg/ Doxorubicin HCl 17.8 mg/ Vincristine Sulfate 0.712 mg/ Sodium Chloride 514.062 ml @ 21.419 mls/hr DAILY@1400 IV 07/22/17 14:00 07/26/17 13:59 07/24/17 16:01 Prednisone (Deltasone) 100 mg Q12H PO 07/22/17 14:00 07/27/17 02:01 07/25/17 01:40 Enalaprilat (Vasotec Inj) 1.25 mg Q6H PRN IV PUSH SBP>160, DBP>90 07/23/17 09:00 07/24/17 04:32 Objective Remarks GENERAL: Middle aged male upright in bed in [facility]. SKIN: Warm and dry. HEAD: Normocephalic. EYES: No injection or drainage. NECK: Supple, trachea midline. CARDIOVASCULAR: Regular rate and rhythm RESPIRATORY: Breath sounds equal bilaterally. No accessory muscle use. GASTROINTESTINAL: Abdomen soft, non-tender, nondistended. EXTREMITIES: No cyanosis NEUROLOGICAL: awake and alert, normal speech. moving all extremities. 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 D4 of EPOCH at 1600 today. 2. Continue allopurinol 3. continue to hold coumadin 4. monitor CBC, CMP, uric acid, LDH Attending Statement The exam, history, and the medical decision-making described in the above note were completed with the assistance of the mid-level provider. I reviewed and agree with the findings presented. I attest that I had a [id number] encounter with the patient on the same day, and personally performed and documented my assessment and findings in the medical record. Offer no c/o feels better. On chemo with no c/o today. continue present care. Problem Qualifiers (1) Non-Hodgkin lymphoma: Qualified Codes: C83.38 - Diffuse large b-cell lymphoma, lymph nodes of multiple sites Brenda Platt Jul 25, 2017 08:48 Ga Murphy MD Jul 25, 2017 19:21
[2017-07-25] MEDS: ALLOPURINOL 300 MG TAB PO SCH (09:19)
[2017-07-25] MEDS: PANTOPRAZOLE SOD 40 MG DELAYED RELEASE TAB PO SCH (09:19)
[2017-07-25] MEDS: NIFEdipine 90 MG SUSTAINED RELEASE TAB PO SCH (09:19)
[2017-07-25 09:22] VITALS: BP 133/95; PULSE 82; RESP 17; TEMP 98.2; O2SAT 100
[2017-07-25 11:44] VITALS: BP 136/97; PULSE 73; RESP 17; TEMP 97.3; O2SAT 100
[2017-07-25] MEDS: DRONABINOL 5 MG CAP PO SCH ×2 (11:46→17:31)
[2017-07-25] MEDS: GRANISETRON HCL 1 MG/ML VIAL IV SCH (13:15)
[2017-07-25] MEDS ORDERED: POTASSIUM CHLORIDE 20 MEQ CONTROLLED RELEASE TAB PO ONE (15:00)
[2017-07-25] MEDS: ETOPOSIDE IV SCH (17:35)
[2017-07-25] MEDS: VINCRISTINE IV SCH (17:35)
[2017-07-25] MEDS: [UNRECOGNIZED DRUG - OTHER] IV SCH (17:35)
[2017-07-25] MEDS: DOXORUBICIN IV SCH (17:35)
[2017-07-25 17:41] VITALS: BP 115/80; PULSE 76; RESP 18; TEMP 98; O2SAT 100
[2017-07-25 20:30] VITALS: BP 123/64; PULSE 76; RESP 18; TEMP 97.6; O2SAT 100
[2017-07-26 01:00] VITALS: BP 134/91; PULSE 73; RESP 16; TEMP 97.5; O2SAT 100
[2017-07-26] MEDS: predniSONE 50 MG TAB PO SCH ×2 (01:16→13:23)
[2017-07-26 04:00] VITALS: BP 126/90; PULSE 77; RESP 15; TEMP 97.5; O2SAT 100
[2017-07-26 04:05] LABS: AUTOMATED NEUTROPHIL # 11.4 TH/MM3 (1.8-7.7); HEMATOCRIT 26.7 % (39.0-51.0); HEMO FLAGS DIFF FINAL; LYMPH % 2.3 % (9.0-44.0); LYMPHOCYTE # 0.3 TH/MM3 (1.0-4.8); MEAN CELL VOLUME 86.3 FL (80.0-100.0); MEAN CORPUSCULAR HEMOGLOBIN 28.4 PG (27.0-34.0); MEAN CORPUSCULAR HGB CONC 32.9 % (32.0-36.0); MONO % 1.3 % (0.0-8.0); NEUT % 96.4 % (16.0-70.0); PLATELET COUNT 378 TH/MM3 (150-450); RED BLOOD COUNT 3.09 MIL/MM3 (4.50-5.90); RED CELL DISTRIBUTION WIDTH 17.1 % (11.6-17.2); WHITE BLOOD COUNT 11.8 TH/MM3 (4.0-11.0)
[2017-07-26 04:08] LABS: INTERNATIONAL NORMALIZED RATIO 2.3 RATIO; PROTHROMBIN TIME - PATIENT 26.4 SEC (9.8-11.6)
[2017-07-26 04:15] LABS: ALT (GPT) 14 U/L (12-78); ANION GAP 6 MEQ/L (5-15); AST (GOT) 4 U/L (15-37); BICARBONATE 28.1 MEQ/L (21.0-32.0); BLOOD UREA NITROGEN 17 MG/DL (7-18); CHLORIDE 103 MEQ/L (98-107); GLOMERULAR FILTRATION RATE 180 ML/MIN (>89); POTASSIUM 3.6 MEQ/L (3.5-5.1); SODIUM (NA) 137 MEQ/L (136-145); URIC ACID 2.1 MG/DL (2.6-7.2)
[2017-07-26 04:18] LABS: ALKALINE PHOSPHATASE 90 U/L (45-117); TOTAL BILIRUBIN ADULT 0.2 MG/DL (0.2-1.0)
[2017-07-26] MEDS: ALLOPURINOL 300 MG TAB PO SCH (09:00)
[2017-07-26] MEDS: PANTOPRAZOLE SOD 40 MG DELAYED RELEASE TAB PO SCH (09:00)
[2017-07-26] MEDS: NIFEdipine 90 MG SUSTAINED RELEASE TAB PO SCH (09:01)
[2017-07-26 09:02] VITALS: BP 133/81; PULSE 65; RESP 16; TEMP 97.6; O2SAT 100
--- NOTE | 2017-07-26 10:23 | PD.ONC.PN ---
Subjective Subjective Remarks Afebrile overnight. Patient resting in bed in nad. Reports an occasional random epigastric abdominal pain which he noticed this morning. No nausea or vomiting. No diarrhea. Having normal bowel movements. Eating a normal diet. Pain is unrelated to eating. Objective Data Date Time Temp Pulse Resp B/P (MAP) Pulse Ox O2 Delivery O2 Flow Rate FiO2 07/26/17 09:02 97.6 65 16 133/81 (98) 100 07/26/17 04:00 97.5 77 15 126/90 (102) 100 07/26/17 01:00 97.5 73 16 134/91 (105) 100 07/25/17 20:30 97.6 76 18 123/64 (83) 100 07/25/17 17:41 98.0 76 18 115/80 (92) 100 07/25/17 11:44 97.3 73 17 136/97 (110) 100 07/26/17 07/26/17 07/26/17 07:00 15:00 23:00 Intake Total 255 ml Output Total 500 ml Balance -245 ml Result Diagram: 07/26/17 0340 07/26/17 0340 Laboratory Results Laboratory Tests Test 07/26/17 03:40 White Blood Count 11.8 TH/MM3 Red Blood Count 3.09 MIL/MM3 Hemoglobin 8.8 GM/DL Hematocrit 26.7 % Mean Corpuscular Volume 86.3 FL Mean Corpuscular Hemoglobin 28.4 PG Mean Corpuscular Hemoglobin Concent 32.9 % Red Cell Distribution Width 17.1 % Platelet Count 378 TH/MM3 Mean Platelet Volume 7.0 FL Neutrophils (%) (Auto) 96.4 % Lymphocytes (%) (Auto) 2.3 % Monocytes (%) (Auto) 1.3 % Eosinophils (%) (Auto) 0.0 % Basophils (%) (Auto) 0.0 % Neutrophils # (Auto) 11.4 TH/MM3 Lymphocytes # (Auto) 0.3 TH/MM3 Monocytes # (Auto) 0.1 TH/MM3 Eosinophils # (Auto) 0.0 TH/MM3 Basophils # (Auto) 0.0 TH/MM3 CBC Comment DIFF FINAL Differential Comment Prothrombin Time 26.4 SEC Prothromb Time International Ratio 2.3 RATIO Blood Urea Nitrogen 17 MG/DL Creatinine 0.58 MG/DL Random Glucose 114 MG/DL Total Protein 6.0 GM/DL Albumin 2.2 GM/DL Calcium Level 8.5 MG/DL Uric Acid 2.1 MG/DL Alkaline Phosphatase 90 U/L Aspartate Amino Transf (AST/SGOT) 4 U/L Alanine Aminotransferase (ALT/SGPT) 14 U/L Total Bilirubin 0.2 MG/DL Sodium Level 137 MEQ/L Potassium Level 3.6 MEQ/L Chloride Level 103 MEQ/L Carbon Dioxide Level 28.1 MEQ/L Anion Gap 6 MEQ/L Estimat Glomerular Filtration Rate 180 ML/MIN Administered Medications Medications (Trade) Dose Ordered Sig/Shyla Route PRN Reason Start Time Stop Time Status Last Admin Dose Admin Dronabinol (Marinol) 5 mg BID@11,16 PO 07/22/17 11:00 07/25/17 17:31 Nifedipine (Procardia Xl) 90 mg DAILY PO 07/22/17 09:00 07/26/17 09:01 Allopurinol (Zyloprim) 300 mg DAILY PO 07/22/17 09:00 07/26/17 09:00 Granisetron HCl (Kytril Inj) 1 mg DAILY@1130 IV 07/22/17 11:30 07/26/17 11:31 07/25/17 13:15 Etoposide 89 mg/ Doxorubicin HCl 17.8 mg/ Vincristine Sulfate 0.712 mg/ Sodium Chloride 514.062 ml @ 21.419 mls/hr DAILY@1400 IV 07/22/17 14:00 07/26/17 13:59 07/25/17 17:35 Prednisone (Deltasone) 100 mg Q12H PO 07/22/17 14:00 07/27/17 02:01 07/26/17 01:16 Enalaprilat (Vasotec Inj) 1.25 mg Q6H PRN IV PUSH SBP>160, DBP>90 07/23/17 09:00 07/24/17 04:32 Pantoprazole Sodium (Protonix) 40 mg DAILY PO 07/25/17 09:00 07/26/17 09:00 Objective Remarks GENERAL: Middle aged male upright in bed in nad. SKIN: Warm and dry. HEAD: Normocephalic. EYES: No injection or drainage. NECK: Supple, trachea midline. CARDIOVASCULAR: Regular rate and rhythm RESPIRATORY: Breath sounds equal bilaterally. No accessory muscle use. GASTROINTESTINAL: Abdomen soft, +BS no tenderness to palpation, nondistended. EXTREMITIES: No cyanosis NEUROLOGICAL: awake and alert, normal speech. Assessment/Plan Problem List: (1) Non-Hodgkin lymphoma ICD Codes: C85.90 - Non-Hodgkin lymphoma, unspecified, unspecified site Status: Acute Plan: --05/18-->R-CHOP chemotherapy --06/08--> R-EPOCH chemotherapy completed on 06/14 --06/29-->R-EPOCH --07/22-->R-EPOCH (2) Pulmonary emboli ICD Codes: I26.99 - Other pulmonary embolism without acute cor pulmonale Status: Chronic Plan: -- On Coumadin (3) Hypertension ICD Codes: I10 - Essential (primary) hypertension Plan: -- Likely due to high-dose steroids -- Will add on prn enalapril for BP greater than 160/90 (4) Abdominal pain ICD Codes: R10.9 - Unspecified abdominal pain Plan: --check lipase --give GI cocktail, monitor Assessment 47-year-old male with 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 complete EPOCH this afternoon. will give Cytoxan this evening. 2. Continue allopurinol 3. resume coumadin 4. monitor CBC, CMP, uric acid, LDH 5. try GI cocktail. 6. d/c home in the AM. Attending Statement The exam, history, and the medical decision-making described in the above note were completed with the assistance of the mid-level provider. I reviewed and agree with the findings presented. I attest that I had a [id number] encounter with the patient on the same day, and personally performed and documented my assessment and findings in the medical record. c/o epigastric discomfort. No N/V/D will complete chemo this evening. Home tomorrow. Problem Qualifiers (1) Non-Hodgkin lymphoma: Qualified Codes: C83.38 - Diffuse large b-cell lymphoma, lymph nodes of multiple sites Brenda Platt Jul 26, 2017 10:23 Ga Murphy MD Jul 26, 2017 17:14
[2017-07-26] MEDS ORDERED: SODIUM CHLORID 0.9% IV ONE (11:00)
[2017-07-26] MEDS ORDERED: CYCLOPHOSPHAMIDE IV ONE (11:00)
[2017-07-26] MEDS ORDERED: ALUMINUM/MAGNESIUM/SIMETH 30 ML CUP PO ONE (11:30)
[2017-07-26] MEDS: DRONABINOL 5 MG CAP PO SCH ×2 (11:55→16:13)
[2017-07-26] MEDS: GRANISETRON HCL 1 MG/ML VIAL IV SCH (11:55)
[2017-07-26] MEDS ORDERED: SUCRALFATE 1 GM/10 ML CUP PO ONE (12:00)
[2017-07-26] MEDS ORDERED: ACETAMINOPHEN/HYDROcodone 325 MG/5 MG TAB PO PRN (12:00)
[2017-07-26 14:58] VITALS: BP 164/116; PULSE 76; RESP 18; TEMP 97.6; O2SAT 100
[2017-07-26] MEDS: ENALAPRILAT 1.25 MG/ML VIAL IV PUSH PRN (15:10)
[2017-07-26] MEDS: WARFARIN SOD 4 MG TAB PO SCH (16:14)
[2017-07-26 17:59] VITALS: BP 114/77; PULSE 76; RESP 18; TEMP 97.8; O2SAT 100
[2017-07-26 20:00] VITALS: BP 145/94; PULSE 67; RESP 18; TEMP 97.5; O2SAT 100
[2017-07-27 00:04] VITALS: BP 147/93; PULSE 67; RESP 18; TEMP 97.7; O2SAT 98
[2017-07-27] MEDS: predniSONE 50 MG TAB PO SCH (01:42)
[2017-07-27] MEDS: ENALAPRILAT 1.25 MG/ML VIAL IV PUSH PRN (03:52)
[2017-07-27 04:06] VITALS: BP 165/105; PULSE 64; RESP 18; TEMP 97.6; O2SAT 100
[2017-07-27 04:48] LABS: AUTOMATED NEUTROPHIL # 9.5 TH/MM3 (1.8-7.7); HEMATOCRIT 24.8 % (39.0-51.0); HEMO FLAGS DIFF FINAL; LYMPH % 2.1 % (9.0-44.0); LYMPHOCYTE # 0.2 TH/MM3 (1.0-4.8); MEAN CELL VOLUME 85.8 FL (80.0-100.0); MEAN CORPUSCULAR HEMOGLOBIN 28.7 PG (27.0-34.0); MEAN CORPUSCULAR HGB CONC 33.4 % (32.0-36.0); MONO % 0.9 % (0.0-8.0); PLATELET COUNT 316 TH/MM3 (150-450); RED BLOOD COUNT 2.89 MIL/MM3 (4.50-5.90); RED CELL DISTRIBUTION WIDTH 16.8 % (11.6-17.2); WHITE BLOOD COUNT 9.7 TH/MM3 (4.0-11.0)
[2017-07-27 05:14] LABS: ANION GAP 5 MEQ/L (5-15); AST (GOT) 7 U/L (15-37); BICARBONATE 29.7 MEQ/L (21.0-32.0); BLOOD UREA NITROGEN 15 MG/DL (7-18); CHLORIDE 103 MEQ/L (98-107); GLOMERULAR FILTRATION RATE 269 ML/MIN (>89); LDH SERUM 121 U/L (87-241); POTASSIUM 3.2 MEQ/L (3.5-5.1); SODIUM (NA) 138 MEQ/L (136-145)
[2017-07-27 05:16] LABS: ALKALINE PHOSPHATASE 95 U/L (45-117); ALT (GPT) 15 U/L (12-78); TOTAL BILIRUBIN ADULT 0.2 MG/DL (0.2-1.0); URIC ACID 2.7 MG/DL (2.6-7.2)
[2017-07-27 06:40] VITALS: BP 163/103
[2017-07-27 08:30] VITALS: BP 148/91; PULSE 74; RESP 18; TEMP 97.7; O2SAT 100
[2017-07-27] MEDS: NIFEdipine 90 MG SUSTAINED RELEASE TAB PO SCH (08:43)
[2017-07-27] MEDS: PANTOPRAZOLE SOD 40 MG DELAYED RELEASE TAB PO SCH (08:43)
[2017-07-27] MEDS: ALLOPURINOL 300 MG TAB PO SCH (08:43)
--- NOTE | 2017-07-27 10:13 | PD.ONC.PN ---
Subjective Subjective Remarks Afebrile overnight. Patient resting in bed in nad. Finished chemotherapy last night. Eager to go home. Objective Data Date Time Temp Pulse Resp B/P (MAP) Pulse Ox O2 Delivery O2 Flow Rate FiO2 07/27/17 06:40 163/103 (123) 07/27/17 04:06 97.6 64 18 165/105 (125) 100 07/27/17 00:04 97.7 67 18 147/93 (111) 98 07/26/17 20:00 97.5 67 18 145/94 (111) 100 07/26/17 17:59 97.8 76 18 114/77 (89) 100 07/26/17 14:58 97.6 76 18 164/116 (132) 100 07/27/17 07/27/17 07/27/17 07:00 15:00 23:00 Intake Total 480 ml Balance 480 ml Result Diagram: 07/27/17 0400 07/27/17 0400 Laboratory Results Laboratory Tests Test 07/27/17 04:00 White Blood Count 9.7 TH/MM3 Red Blood Count 2.89 MIL/MM3 Hemoglobin 8.3 GM/DL Hematocrit 24.8 % Mean Corpuscular Volume 85.8 FL Mean Corpuscular Hemoglobin 28.7 PG Mean Corpuscular Hemoglobin Concent 33.4 % Red Cell Distribution Width 16.8 % Platelet Count 316 TH/MM3 Mean Platelet Volume 7.1 FL Neutrophils (%) (Auto) 97.0 % Lymphocytes (%) (Auto) 2.1 % Monocytes (%) (Auto) 0.9 % Eosinophils (%) (Auto) 0.0 % Basophils (%) (Auto) 0.0 % Neutrophils # (Auto) 9.5 TH/MM3 Lymphocytes # (Auto) 0.2 TH/MM3 Monocytes # (Auto) 0.1 TH/MM3 Eosinophils # (Auto) 0.0 TH/MM3 Basophils # (Auto) 0.0 TH/MM3 CBC Comment DIFF FINAL Differential Comment Blood Urea Nitrogen 15 MG/DL Creatinine 0.41 MG/DL Random Glucose 97 MG/DL Total Protein 5.7 GM/DL Albumin 2.3 GM/DL Calcium Level 8.5 MG/DL Uric Acid 2.7 MG/DL Alkaline Phosphatase 95 U/L Aspartate Amino Transf (AST/SGOT) 7 U/L Alanine Aminotransferase (ALT/SGPT) 15 U/L Lactate Dehydrogenase 121 U/L Total Bilirubin 0.2 MG/DL Sodium Level 138 MEQ/L Potassium Level 3.2 MEQ/L Chloride Level 103 MEQ/L Carbon Dioxide Level 29.7 MEQ/L Anion Gap 5 MEQ/L Estimat Glomerular Filtration Rate 269 ML/MIN Administered Medications Medications (Trade) Dose Ordered Sig/Shyla Route PRN Reason Start Time Stop Time Status Last Admin Dose Admin Dronabinol (Marinol) 5 mg BID@11,16 PO 07/22/17 11:00 07/26/17 16:13 Nifedipine (Procardia Xl) 90 mg DAILY PO 07/22/17 09:00 07/27/17 08:43 Warfarin Sodium (Coumadin) 4 mg DAILY@1600 PO 07/22/17 16:00 Future hold 07/26/17 16:14 Allopurinol (Zyloprim) 300 mg DAILY PO 07/22/17 09:00 07/27/17 08:43 Enalaprilat (Vasotec Inj) 1.25 mg Q6H PRN IV PUSH SBP>160, DBP>90 07/23/17 09:00 07/27/17 03:52 Pantoprazole Sodium (Protonix) 40 mg DAILY PO 07/25/17 09:00 07/27/17 08:43 Acetaminophen/ Hydrocodone Bitart (Scott 5-325 Mg) 1 tab Q6H PRN PO PAIN 1-10 07/26/17 12:00 07/26/17 13:23 Objective Remarks GENERAL: Middle aged male upright in bed in [facility]. SKIN: Warm and dry. HEAD: Normocephalic. EYES: No injection or drainage. NECK: Supple, trachea midline. CARDIOVASCULAR: Regular rate and rhythm RESPIRATORY: Breath sounds equal bilaterally. No accessory muscle use. GASTROINTESTINAL: Abdomen soft, non-tender, nondistended. EXTREMITIES: No cyanosis NEUROLOGICAL: No obvious focal deficit. Awake, alert, and oriented x3. Assessment/Plan Problem List: (1) Non-Hodgkin lymphoma ICD Codes: C85.90 - Non-Hodgkin lymphoma, unspecified, unspecified site Status: Acute Plan: --05/18-->R-CHOP chemotherapy --06/08--> R-EPOCH chemotherapy completed on 06/14 --06/29-->R-EPOCH --07/22-->R-EPOCH (2) Pulmonary emboli ICD Codes: I26.99 - Other pulmonary embolism without acute cor pulmonale Status: Chronic Plan: -- On Coumadin (3) Hypertension ICD Codes: I10 - Essential (primary) hypertension Plan: -- Likely due to high-dose steroids -- Will add on prn enalapril for BP greater than 160/90 (4) Abdominal pain ICD Codes: R10.9 - Unspecified abdominal pain Plan: --check lipase --give GI cocktail, monitor Assessment 47-year-old male with 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 clear for discharge home 2. follow up in clinic on Thursday for Neulasta shot. Attending Statement The exam, history, and the medical decision-making described in the above note were completed with the assistance of the mid-level provider. I reviewed and agree with the findings presented. I attest that I had a [id number] encounter with the patient on the same day, and personally performed and documented my assessment and findings in the medical record. Tolerated EPOCH well. D/c today. F/u clinic tomorrow for neulasta injection Problem Qualifiers (1) Non-Hodgkin lymphoma: Qualified Codes: C83.38 - Diffuse large b-cell lymphoma, lymph nodes of multiple sites Brenda Platt Jul 27, 2017 10:13 Ruslan Connelly MD Jul 27, 2017 14:30
--- NOTE | 2017-07-27 10:14 | HHI.DCPOC ---
Discharge Care Plan Diagnosis: (1) Non-Hodgkin lymphoma (2) Pulmonary emboli Goals to Promote Your Health * To prevent worsening of your condition and complications * To maintain your health at the optimal level Directions to Meet Your Goals Take your medications as prescribed Follow your dietary instruction Follow activity as directed Keep your appointments as scheduled Take your immunizations and boosters as scheduled If your symptoms worsen call your PCP, if no PCP go to Urgent Care Center or Emergency Room Smoking is Dangerous to Your Health. Avoid second hand smoke Call the 24-hour hour crisis hotline for domestic abuse at Brenda Platt Jul 27, 2017 10:14
--- NOTE | 2017-07-27 10:21 | HHI.DS ---
Discharge Summary Admission Date Jul 22, 2017 at 08:44 Discharge Date: Jul 27, 2017 Admitting Diagnosis B-cell lymphoma, admitted for EPOCH chemotherapy (1) Non-Hodgkin lymphoma Diagnosis: Principal ICD Codes: C85.90 - Non-Hodgkin lymphoma, unspecified, unspecified site Status: Acute (2) Pulmonary emboli Diagnosis: Principal ICD Codes: I26.99 - Other pulmonary embolism without acute cor pulmonale Status: Chronic Brief History Mr. Werner is a 47 y/o male with a diagnosis of B-cell lymphoma diagnosed in summer 2016. He is being admitted for EPOCH chemotherapy. CBC/BMP: 07/27/17 0400 07/27/17 0400 Significant Findings Laboratory Tests Test 07/25/17 04:19 07/26/17 03:40 07/27/17 04:00 White Blood Count 13.3 TH/MM3 (4.0-11.0) 11.8 TH/MM3 (4.0-11.0) Red Blood Count 3.19 MIL/MM3 (4.50-5.90) 3.09 MIL/MM3 (4.50-5.90) 2.89 MIL/MM3 (4.50-5.90) Hemoglobin 9.1 GM/DL (13.0-17.0) 8.8 GM/DL (13.0-17.0) 8.3 GM/DL (13.0-17.0) Hematocrit 27.7 % (39.0-51.0) 26.7 % (39.0-51.0) 24.8 % (39.0-51.0) Neutrophils (%) (Auto) 95.3 % (16.0-70.0) 96.4 % (16.0-70.0) 97.0 % (16.0-70.0) Lymphocytes (%) (Auto) 2.3 % (9.0-44.0) 2.3 % (9.0-44.0) 2.1 % (9.0-44.0) Neutrophils # (Auto) 12.7 TH/MM3 (1.8-7.7) 11.4 TH/MM3 (1.8-7.7) 9.5 TH/MM3 (1.8-7.7) Lymphocytes # (Auto) 0.3 TH/MM3 (1.0-4.8) 0.3 TH/MM3 (1.0-4.8) 0.2 TH/MM3 (1.0-4.8) Prothrombin Time 35.0 SEC (9.8-11.6) 26.4 SEC (9.8-11.6) Creatinine 0.43 MG/DL (0.60-1.30) 0.58 MG/DL (0.60-1.30) 0.41 MG/DL (0.60-1.30) Random Glucose 114 MG/DL (74-106) 114 MG/DL (74-106) Albumin 2.4 GM/DL (3.4-5.0) 2.2 GM/DL (3.4-5.0) 2.3 GM/DL (3.4-5.0) Uric Acid 2.1 MG/DL (2.6-7.2) 2.1 MG/DL (2.6-7.2) Aspartate Amino Transf (AST/SGOT) 10 U/L (15-37) 4 U/L (15-37) 7 U/L (15-37) Total Bilirubin 0.1 MG/DL (0.2-1.0) Potassium Level 3.3 MEQ/L (3.5-5.1) 3.2 MEQ/L (3.5-5.1) Total Protein 6.0 GM/DL (6.4-8.2) 5.7 GM/DL (6.4-8.2) PE at Discharge please see physical exam from progress note on 07/27/17 Hospital Course Mr. Werner was admitted on 07/22/17 for consolidation chemotherapy with EPOCH. His home medications were resumed. Patient tolerated chemotherapy without adverse reaction and is being discharged home in stable condition. Pt Condition on Discharge: Good Discharge Disposition: Discharge Home Discharge Instructions DIET: Follow Instructions for: As Tolerated, No Restrictions Activities you can perform: Regular-No Restrictions Brenda Platt Jul 27, 2017 10:21
[2017-07-27 11:55] VITALS: BP 148/91; PULSE 74; RESP 18; TEMP 97.7; O2SAT 100
[2017-07-27] MEDS: DRONABINOL 5 MG CAP PO SCH (13:50)
[2017-07-27 14:16] VITALS: BP 129/82; PULSE 69; RESP 18; TEMP 96.8; O2SAT 100
== END 2017-07-27 14:43 | disposition home or self-care (01) | DRG 846 ==
LOC: HOCA 07-22 07:27 → OBSVTOIN 07-22 08:44 → HCIS 07-23 12:18
PROVIDERS: ADMIT Internal Medicine Hematology & Oncology; ATTEND Internal Medicine Hematology & Oncology
DX: Z51.11 Encounter for antineoplastic chemotherapy (principal); I26.99 Other pulmonary embolism without acute cor pulmonale; C83.30 Diffuse large B-cell lymphoma, unspecified site; I10 Essential (primary) hypertension; T38.0X5A Adverse effect of glucocorticoids and synthetic analogues, initial encounter; R79.1 Abnormal coagulation profile; Z79.01 Long term (current) use of anticoagulants; Z87.891 Personal history of nicotine dependence
CPT/HCPCS: 80053; 83615; 83690; 84550; 85025; 85610; 96413; 96415; J1100; J1626; J1642; J1720; J7030; J7040; J7512; J9000; J9070; J9181; J9310; J9370; Q0163

== ENCOUNTER 2017-08-12 08:09 | Inpatient (IN) | payer MEDICAID ==
[~2017-08-12] VITALS: Ht 188 cm; Wt 61.0 kg
[~2017-08-12 08:09] MED LIST changes: -CIPR-9 PO
[2017-08-12 08:37] VITALS: BP 128/76; PULSE 82; RESP 18; TEMP 98.3; O2SAT 100
[2017-08-12 09:09] VITALS: PULSE 78
[2017-08-12] MEDS ORDERED: TEMAZEPAM 15 MG CAP PO PRN ×2 (09:15)
[2017-08-12] MEDS ORDERED: ALTEPLASE RECOMBINANT 2 MG VIAL IVF PRN ×2 (09:15)
[2017-08-12] MEDS ORDERED: MAGNESIUM HYDROXIDE SUSP 30 ML CUP PO PRN ×2 (09:15)
[2017-08-12] MEDS ORDERED: ACETAMINOPHEN 325 MG TAB PO PRN ×2 (09:15)
[2017-08-12] MEDS ORDERED: PROCHLORPERAZINE INJ 10 MG/2 ML VIAL IV PUSH PRN ×2 (09:15)
[2017-08-12] MEDS ORDERED: COUM5TAB PO ×2 (10:05)
[2017-08-12 10:10] LABS: AUTOMATED NEUTROPHIL # 11.2 TH/MM3 (1.8-7.7); BASOPHIL % 0.2 % (0.0-2.0); HEMATOCRIT 24.5 % (39.0-51.0); HEMOGLOBIN 8.1 GM/DL (13.0-17.0); LYMPH % 6.8 % (9.0-44.0); LYMPHOCYTE # 0.9 TH/MM3 (1.0-4.8); MEAN CELL VOLUME 85.5 FL (80.0-100.0); MEAN CORPUSCULAR HEMOGLOBIN 28.1 PG (27.0-34.0); MEAN CORPUSCULAR HGB CONC 32.9 % (32.0-36.0); MEAN PLATELET VOLUME 7.5 FL (7.0-11.0); MONO % 7.8 % (0.0-8.0); NEUT % 85.2 % (16.0-70.0); PLATELET COUNT 279 TH/MM3 (150-450); RED BLOOD COUNT 2.87 MIL/MM3 (4.50-5.90); RED CELL DISTRIBUTION WIDTH 17.8 % (11.6-17.2); WHITE BLOOD COUNT 13.1 TH/MM3 (4.0-11.0)
[2017-08-12 10:19] LABS: INTERNATIONAL NORMALIZED RATIO 1.4 RATIO; PROTHROMBIN TIME - PATIENT 16.2 SEC (9.8-11.6)
[2017-08-12 10:48] LABS: ALBUMIN 2.5 GM/DL (3.4-5.0); AST (GOT) 4 U/L (15-37); BICARBONATE 26.7 MEQ/L (21.0-32.0); BLOOD UREA NITROGEN 4 MG/DL (7-18); CALCIUM 8.7 MG/DL (8.5-10.1); CHLORIDE 100 MEQ/L (98-107); GLOMERULAR FILTRATION RATE 214 ML/MIN (>89); GLUCOSE,RANDOM 85 MG/DL (74-106); MAGNESIUM 1.7 MG/DL (1.5-2.5); SODIUM (NA) 137 MEQ/L (136-145)
[2017-08-12 10:49] LABS: ALT (GPT) 8 U/L (12-78)
[2017-08-12 10:54] LABS: ALKALINE PHOSPHATASE 113 U/L (45-117); TOTAL BILIRUBIN ADULT 0.3 MG/DL (0.2-1.0); TOTAL PROTEIN 6.5 GM/DL (6.4-8.2)
[2017-08-12] MEDS ORDERED: POTASSIUM CHLORIDE 20 MEQ CONTROLLED RELEASE TAB PO ONE ×2 (11:30)
[2017-08-12 12:16] VITALS: BP 120/74; PULSE 83; RESP 18; TEMP 99.6; O2SAT 100
[2017-08-12] MEDS: PANTOPRAZOLE SOD 40 MG DELAYED RELEASE TAB PO SCH ×2 (12:19)
--- NOTE | 2017-08-12 13:18 | MH ---
cc: SHADY MAYORGA M.D. DATE OF ADMISSION: 08/12/2017 ADMITTING DIAGNOSIS High-risk non-Hodgkin B-cell lymphoma, admitted for chemotherapy. HISTORY OF PRESENT ILLNESS The patient is a 47-year-old male first admitted to the hospital in April with abdominal pain. CT showed extensive mediastinal, cervical and bilateral axillary adenopathy. He also had extensive mesenteric retroperitoneal adenopathy. 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 He had one cycle of Rituxan and CHOP at a reduced dose because at that time he had sepsis and renal failure on dialysis. He eventually recovered and became stronger. He was then started on Rituximab and EPOCH. He has now completed three cycles of EPOCH chemotherapy. He tolerated it relatively well. He was supposed to have a PET scan done last week but had to reschedule it. He is admitted today for another cycle of chemotherapy. He received Rituxan yesterday and tolerated it very well. He denies any fever, chills, night sweats. He is maintaining his weight. His appetite is fair. He denies any chest pressure, palpitation, any shortness of breath or cough. He denies any nausea or vomiting, diarrhea, abdominal pain. Denies dysuria and hematuria. He denies any lower extremity edema. He stated he has been taking the Coumadin. He denies any bleeding or bruising. PAST MEDICAL HISTORY 1. Non-Hodgkin's B-cell lymphoma as above. 2. Hypertension. 3. Pulmonary embolism. 4. Renal failure requiring temporary dialysis. PAST SURGICAL HISTORY 1. Bone marrow biopsy. 2. Left axillary lymph node dissection. 3. Port placement. FAMILY HISTORY Noncontributory. SOCIAL HISTORY He has quit smoking and drinking alcohol. ALLERGIES No known drug allergy. MEDICATIONS 1. Coumadin. 2. Nifedipine. 3. Marinol. REVIEW OF SYSTEMS CONSTITUTIONAL: As above. EYES: Negative. ENT: Negative. CARDIOVASCULAR: Denies any chest pain or palpitations. RESPIRATORY: Denies shortness of breath or cough. GI: Denies nausea, vomiting, diarrhea or abdominal pain. : No dysuria, hematuria. MUSCULOSKELETAL: Negative. DERMATOLOGY: Negative. PSYCHIATRIC: Negative. NEUROLOGIC: Negative. PHYSICAL EXAMINATION VITALS: Temperature 99.6, blood pressure 120/74, O2 saturation 100% on room air. GENERAL: He is alert and oriented x3, in no acute distress. HEENT: Atraumatic, normocephalic. Pupils equal, round and reactive to light. Extraocular muscles intact. No scleral icterus. Oropharynx - Dry mucosa. No lesion, no thrush, no mucositis. Neck: No thyromegaly. No palpable mass. LYMPHATICS: No palpable cervical, clavicular, or inguinal lymph nodes. Some fullness in the right supraclavicular area. There is still a palpable mass in the left axilla. CARDIOVASCULAR: Regular. S1 and S2 normal. LUNGS: Clear to auscultation without wheezing or rhonchi. ABDOMEN: Soft, nontender. I could not palpate liver or spleen. EXTREMITIES: No cyanosis, no clubbing, no edema. No calf tenderness. BACK: No paravertebral tenderness. SKIN: No rash or petechiae. NEUROLOGIC EXAM: Nonfocal. LABORATORY DATA Reviewed. ASSESSMENT 1. 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 CT showed diffuse adenopathy in the bilateral axilla, supraclavicular, mediastinum and retroperitoneum. Bone marrow was not involved. Clinically Stage III. He has now completed one cycle of Rituxan and CHOP, followed by three cycles of Rituxan and EPOCH. He has tolerated treatment very well. He has no new adenopathy noted. He was supposed to have a PET scan for restaging last week but has it has been rescheduled for two more weeks. He is admitted today for another cycle of chemotherapy. His blood count has recovered. I have talked to the patient and family multiple times regarding consolidation bone marrow transplant but they are not interested. 2. History of pulmonary embolism. He had massive pulmonary embolism during his previous hospital stay. He had t-PA treatment. He is currently on Coumadin. His INR is subtherapeutic. He has no symptoms. He will continue the Coumadin. 3. Pleural effusion status post thoracentesis of the right lung. Pleural fluid has not reaccumulated. 4. History of renal failure requiring temporary dialysis. His renal function is back to normal. PLAN: 1. Arrange for cycle #4 of EPOCH per protocol. 2. Monitor lab work. 3. Continue to titrate Coumadin. 4. Start on Lovenox until his Coumadin is therapeutic again. MD MARIALUISA Balbuena /12:28 PM /1:03 PM [id number]
[2017-08-12] MEDS ORDERED: GRANISETRON HCL 1 MG/ML VIAL IV PUSH SCH ×2 (13:30)
[2017-08-12] MEDS: predniSONE 5 MG TAB PO SCH ×2 (13:53)
[2017-08-12] MEDS: ENOXAPARIN SODIUM 60 MG/0.6 ML SYRINGE SQ SCH ×2 (13:53)
[2017-08-12] MEDS: predniSONE 50 MG TAB PO SCH ×2 (13:53)
[2017-08-12] MEDS ORDERED: [UNRECOGNIZED DRUG - OTHER] IV SCH ×8 (14:00)
[2017-08-12] MEDS ORDERED: VINCRISTINE IV SCH ×8 (14:00)
[2017-08-12] MEDS ORDERED: DOXORUBICIN IV SCH ×8 (14:00)
[2017-08-12] MEDS ORDERED: ETOPOSIDE IV SCH ×8 (14:00)
[2017-08-12 15:50] VITALS: BP 111/70; PULSE 85; RESP 18; TEMP 99.2; O2SAT 100
[2017-08-12] MEDS: WARFARIN SOD 6 MG TAB PO SCH ×2 (15:52)
[2017-08-12 19:45] VITALS: BP 113/62; PULSE 82; RESP 16; TEMP 98.9; O2SAT 100
[2017-08-12 20:00] VITALS: BP 113/62; PULSE 80; PULSE 82; RESP 16; TEMP 98.9; O2SAT 100
[2017-08-13] VITALS (8 sets, daily range): BP systolic 115–142; BP diastolic 73–99; PULSE 46–85; RESP 14–20; TEMP 96.2–98.4; O2SAT 99–100
[2017-08-13] MEDS: predniSONE 5 MG TAB PO SCH ×4 (00:54→13:28)
[2017-08-13] MEDS: predniSONE 50 MG TAB PO SCH ×4 (00:54→13:28)
[2017-08-13] MEDS: ENOXAPARIN SODIUM 60 MG/0.6 ML SYRINGE SQ SCH ×4 (00:56→17:02)
[2017-08-13 04:48] LABS: AUTOMATED NEUTROPHIL # 11.9 TH/MM3 (1.8-7.7); BASOPHIL % 0.1 % (0.0-2.0); EOSINOPHIL % 0.1 % (0.0-4.0); HEMATOCRIT 27.7 % (39.0-51.0); LYMPH % 3.1 % (9.0-44.0); LYMPHOCYTE # 0.4 TH/MM3 (1.0-4.8); MEAN CELL VOLUME 85.3 FL (80.0-100.0); MEAN CORPUSCULAR HEMOGLOBIN 27.7 PG (27.0-34.0); MEAN CORPUSCULAR HGB CONC 32.5 % (32.0-36.0); MEAN PLATELET VOLUME 7.5 FL (7.0-11.0); MONO % 0.7 % (0.0-8.0); MONOCYTE # 0.1 TH/MM3 (0-0.9); PLATELET COUNT 302 TH/MM3 (150-450); RED BLOOD COUNT 3.24 MIL/MM3 (4.50-5.90); WHITE BLOOD COUNT 12.4 TH/MM3 (4.0-11.0)
[2017-08-13 05:00] LABS: ALBUMIN 2.4 GM/DL (3.4-5.0); ALKALINE PHOSPHATASE 113 U/L (45-117); ALT (GPT) 9 U/L (12-78); AST (GOT) 6 U/L (15-37); BICARBONATE 24.8 MEQ/L (21.0-32.0); BLOOD UREA NITROGEN 6 MG/DL (7-18); CALCIUM 8.8 MG/DL (8.5-10.1); CHLORIDE 103 MEQ/L (98-107); CREATININE 0.47 MG/DL (0.60-1.30); GLOMERULAR FILTRATION RATE 230 ML/MIN (>89); GLUCOSE,RANDOM 142 MG/DL (74-106); MAGNESIUM 1.7 MG/DL (1.5-2.5); PHOSPHORUS 2.2 MG/DL (2.5-4.9); SODIUM (NA) 139 MEQ/L (136-145); TOTAL BILIRUBIN ADULT 0.1 MG/DL (0.2-1.0); TOTAL PROTEIN 6.8 GM/DL (6.4-8.2)
[2017-08-13 05:24] LABS: INTERNATIONAL NORMALIZED RATIO 1.9 RATIO; PROTHROMBIN TIME - PATIENT 21.6 SEC (9.8-11.6)
[2017-08-13] MEDS: PANTOPRAZOLE SOD 40 MG DELAYED RELEASE TAB PO SCH ×2 (07:56)
[2017-08-13] MEDS: NIFEdipine 90 MG SUSTAINED RELEASE TAB PO SCH ×2 (07:56)
--- NOTE | 2017-08-13 11:05 | PD.ONC.PN ---
Subjective Subjective Remarks Afebrile overnight. Patient resting in bed in nad. Tolerating chemotherapy. Had some night sweats last night. This is typical for him with each cycle of chemotherapy. The night sweats typically improve after the second night. Objective Data Date Time Temp Pulse Resp B/P (MAP) Pulse Ox O2 Delivery O2 Flow Rate FiO2 08/13/17 08:17 77 08/13/17 07:51 97.6 79 20 139/99 (112) 100 08/13/17 04:21 96.3 76 16 142/88 (106) 100 08/13/17 00:45 96.2 74 16 126/87 (100) 100 08/12/17 20:00 98.9 82 16 113/62 (79) 100 08/12/17 20:00 80 08/12/17 19:45 98.9 82 16 113/62 (79) 100 08/12/17 15:50 99.2 85 18 111/70 (84) 100 08/12/17 12:16 99.6 83 18 120/74 (89) 100 Result Diagram: 08/13/17 0420 08/13/17 0420 Laboratory Results Laboratory Tests Test 08/13/17 04:20 08/13/17 04:30 White Blood Count 12.4 TH/MM3 Red Blood Count 3.24 MIL/MM3 Hemoglobin 9.0 GM/DL Hematocrit 27.7 % Mean Corpuscular Volume 85.3 FL Mean Corpuscular Hemoglobin 27.7 PG Mean Corpuscular Hemoglobin Concent 32.5 % Red Cell Distribution Width 18.0 % Platelet Count 302 TH/MM3 Mean Platelet Volume 7.5 FL Neutrophils (%) (Auto) 96.0 % Lymphocytes (%) (Auto) 3.1 % Monocytes (%) (Auto) 0.7 % Eosinophils (%) (Auto) 0.1 % Basophils (%) (Auto) 0.1 % Neutrophils # (Auto) 11.9 TH/MM3 Lymphocytes # (Auto) 0.4 TH/MM3 Monocytes # (Auto) 0.1 TH/MM3 Eosinophils # (Auto) 0.0 TH/MM3 Basophils # (Auto) 0.0 TH/MM3 CBC Comment DIFF FINAL Differential Comment Blood Urea Nitrogen 6 MG/DL Creatinine 0.47 MG/DL Random Glucose 142 MG/DL Total Protein 6.8 GM/DL Albumin 2.4 GM/DL Calcium Level 8.8 MG/DL Phosphorus Level 2.2 MG/DL Magnesium Level 1.7 MG/DL Uric Acid 2.2 MG/DL Alkaline Phosphatase 113 U/L Aspartate Amino Transf (AST/SGOT) 6 U/L Alanine Aminotransferase (ALT/SGPT) 9 U/L Total Bilirubin 0.1 MG/DL Sodium Level 139 MEQ/L Potassium Level 3.9 MEQ/L Chloride Level 103 MEQ/L Carbon Dioxide Level 24.8 MEQ/L Anion Gap 11 MEQ/L Estimat Glomerular Filtration Rate 230 ML/MIN Prothrombin Time 21.6 SEC Prothromb Time International Ratio 1.9 RATIO Administered Medications Medications (Trade) Dose Ordered Sig/Shyla Route PRN Reason Start Time Stop Time Status Last Admin Dose Admin Pantoprazole Sodium (Protonix) 40 mg DAILY PO 08/12/17 11:00 08/13/17 07:56 Granisetron HCl (Kytril Inj) 1 mg DAILY@1330 IV PUSH 08/12/17 13:30 08/16/17 13:31 08/12/17 13:54 Etoposide 87.5 mg/ Doxorubicin HCl 17.5 mg/ Vincristine Sulfate 0.7 mg/ Sodium Chloride 513.825 ml @ 21.419 mls/hr DAILY@1400 IV 08/12/17 14:00 08/16/17 13:59 08/12/17 14:34 Prednisone (Deltasone) 100 mg Q12H PO 08/12/17 13:00 08/17/17 01:01 08/13/17 00:54 Prednisone (Deltasone) 5 mg Q12H PO 08/12/17 13:00 08/17/17 01:01 08/13/17 00:54 Enoxaparin Sodium (Lovenox Inj) 50 mg Q12H SQ 08/12/17 14:00 08/13/17 00:56 Nifedipine (Procardia Xl) 90 mg DAILY PO 08/13/17 09:00 08/13/17 07:56 Objective Remarks GENERAL: Middle aged male sitting up in bed in [facility]. SKIN: Warm and dry. HEAD: Normocephalic. EYES: No injection or drainage. NECK: Supple, trachea midline. CARDIOVASCULAR: Regular rate and rhythm RESPIRATORY: Breath sounds equal bilaterally. No accessory muscle use. GASTROINTESTINAL: Abdomen soft, non-tender, nondistended. EXTREMITIES: No cyanosis. NEUROLOGICAL: awake and alert, normal speech Assessment/Plan Problem List: (1) Non-Hodgkin lymphoma ICD Codes: C85.90 - Non-Hodgkin lymphoma, unspecified, unspecified site Status: Acute Plan: 08/11: D0--received Rituxan at Clinic 08/12: admission, Day 1 EPOCH 08/13. D2 EPOCH to start at 1500 today. 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 --CT showed diffuse adenopathy in the bilateral axilla, supraclavicular, mediastinum and retroperitoneum. Bone marrow was not involved. Clinically Stage III. --has now completed one cycle of Rituxan and CHOP, followed by three cycles of Rituxan and EPOCH. --has tolerated treatment very well.no new adenopathy noted. --was supposed to have a PET scan for restaging last week but has it has been rescheduled for two more weeks. --have talked to the patient and family multiple times regarding consolidation bone marrow transplant but they are not interested. (2) Pulmonary emboli ICD Codes: I26.99 - Other pulmonary embolism without acute cor pulmonale Status: Chronic Plan: --currently on Lovenox + coumadin. we are exploring whether his insurance will cover Eliquis or Xarelto. --history of pulmonary embolism. --had massive pulmonary embolism during his previous hospital stay. --had t-PA treatment. (3) Pleural effusion ICD Codes: J90 - Pleural effusion, not elsewhere classified Status: Resolved Plan: --Pleural effusion status post thoracentesis of the right lung. --Pleural fluid has not reaccumulated. Assessment 47y/o male with high-risk non-Hodgkin B-cell lymphoma, admitted for chemotherapy. h/o Non-Hodgkin's B-cell lymphoma as above. Hypertension. Pulmonary embolism. Renal failure requiring temporary dialysis. Plan 1. proceed with Day 2 of chemotherapy at 1500 today 2. monitor CBC, CMP, uric acid, magnesium phosphorus. 3. consult case management to see if Eliquis or Xarelto would be covered under patients insurance plan. UPDATE: around 2PM patient started having Bigeminy on tele. EKG was obtained which showed the same. As Doxorubicin can cause cardiomyopathy, will place chemotherapy on hold and obtain echo and consult cardiology. Patient is asymptomatic. Attending Statement The exam, history, and the medical decision-making described in the above note were completed with the assistance of the mid-level provider. I reviewed and agree with the findings presented. I attest that I had a [id number] encounter with the patient on the same day, and personally performed and documented my assessment and findings in the medical record. Saw patient in the morning. He is tolerating chemotherapy. Denies CP/SOB. No N/V. Continue chemotherapy protocol. Problem Qualifiers (1) Non-Hodgkin lymphoma: Qualified Codes: C83.38 - Diffuse large b-cell lymphoma, lymph nodes of multiple sites Brenda Platt Aug 13, 2017 11:05 Ruslan Connelly MD Aug 13, 2017 16:38
--- NOTE | 2017-08-13 16:56 | ECHRPT ---
Indication: CARDIOMYOPATHY CONCLUSIONS Normal left ventricular size. Mild concentric left ventricular hypertrophy. The left ventricular systolic function is low normal with an estimated ejection fraction in the rang e of 50%. Trace mitral valve regurgitation. Mitral annular calcification is present. Trace aortic valve regurgitation. There is a trivial pericardial effusion present. A small right sided pleural effusion is present. BP: 138 / 77 HR: 46 Rhythm: MEASUREMENTS (Male / Female) Normal Values Technical Quality:Good 2D ECHO LV Diastolic Diameter PLAX 5.1 cm 4.2 - 5.9 / 3.9 - 5.3 cm LV Systolic Diameter PLAX 4.0 cm IVS Diastolic Thickness 1.2 cm 0.6 - 1.0 / 0.6 - 0.9 cm LVPW Diastolic Thickness 0.9 cm 0.6 - 1.0 / 0.6 - 0.9 cm LV Relative Wall Thickness 0.4 RV Internal Dim ED PLAX 2.1 cm LA Systolic Diameter LX 3.5 cm 3.0 - 4.0 / 2.7 - 3.8 cm M-MODE Aortic Root Diameter MM 3.5 cm AV Cusp Separation MM 2.2 cm DOPPLER MR Peak Velocity 494.0 cm/s MR Peak Gradient 97.6 mmHg Mitral E Point Velocity 56.8 cm/s Mitral A Point Velocity 66.6 cm/s Mitral E to A Ratio 0.9 TR Peak Velocity 144.0 cm/s TR Peak Gradient 8.3 mmHg Right Atrial Pressure 5.0 mmHg Pulmonary Artery Systolic Pressu 13.3 mmHg Right Ventricular Systolic Press 13.3 mmHg FINDINGS LEFT VENTRICLE Normal left ventricular size. Mild concentric left ventricular hypertrophy. The left ventricular systolic function is low normal with an estimated ejection fraction in the rang e of 50%. RIGHT VENTRICLE Normal right ventricular size and systolic function. LEFT ATRIUM The left atrial size is normal. RIGHT ATRIUM The right atrial size is normal. ATRIAL SEPTUM Normal atrial septal thickness without atrial level shunting by limited color doppler interrogation. AORTA The aortic root and proximal ascending aorta are normal in size on limited imaging. MITRAL VALVE Trace mitral valve regurgitation. Mitral annular calcification is present. AORTIC VALVE Trace aortic valve regurgitation. TRICUSPID VALVE Structurally normal tricuspid valve. No tricuspid valve stenosis or regurgitation. PULMONARY VALVE No pulmonary valve regurgitation or stenosis. VESSELS The inferior vena cava is normal in size. PERICARDIUM There is a trivial pericardial effusion present. A small right sided pleural effusion is present. Jose Angel David MD (Electronically Signed) Final Date:13 August 2017 16:55
[2017-08-13] MEDS: WARFARIN SOD 6 MG TAB PO SCH ×2 (17:00)
--- NOTE | 2017-08-13 19:40 | MB ---
cc: CARLOS LEDESMA DATE OF CONSULTATION 08/13/17 1968 REASON FOR CONSULTATION Abnormal EKG. The patient receiving chemotherapy with doxorubicin. Questionable cardiomyopathy. HISTORY OF PRESENT ILLNESS 47 year old male with past medical history significant for non-Hodgkin's B- cell lymphoma on chemotherapy, hypertension, pulmonary emboli, renal failure requiring temporary dialysis. Consulted to cardiology because of possible cardiomyopathy given abnormal EKG. The patient denies any chest pain, shortness of breath, leg swelling, PND, leg edema, palpitations or syncope. No known previous cardiac history. PAST SURGICAL HISTORY 1. axillary node dissection 2. Port placement FAMILY HISTORY Noncontributory. SOCIAL HISTORY Quit smoking and drinking alcohol. ALLERGIES NO KNOWN DRUG ALLERGIES MEDICATIONS Home medications reviewed. PHYSICAL EXAMINATION VITAL SIGNS: Temperature 98, respiratory rate 18, heart rate 85, blood pressure 130/76. Pulse ox 100% room air. GENERAL: Awake, alert, oriented x3 in no acute distress. NECK: No JVD, no carotid bruits. HEART: Regular rate and rhythm. No murmurs, rubs or gallops. LUNGS: Clear to auscultation bilaterally. No wheezes, rhonchi or rales. ABDOMEN: Benign. Positive bowel sounds, soft, nontender, nondistended. EXTREMITIES: No cyanosis or edema. Pulses throughout. LABORATORY DATA WBC 12, hemoglobin nine, hematocrit 27, platelet count 302, INR 1.9. Sodium 139, potassium 3.9, BUN six, creatinine 0.47. CARDIOLOGY STUDIES EKG - normal sinus rhythm with bigeminy. Nonspecific ST changes. Echocardiogram done today - normal left ventricular size and function, estimated ejection fraction of 50%. There is trace mitral regurgitation. Trace aortic valve regurgitation. There is a TR pericardial effusion and a small right-sided pleural effusion. ASSESSMENT/PLAN 47-year-old male with non-Hodgkin's B-cell lymphoma on chemotherapy being consulted to cardiology because of possible cardiomyopathy in the setting of getting doxorubicin. The patient remains afebrile and hemodynamically stable. He does not have any cardiovascular complaints and/or any signs of acute heart failure exacerbation. Echocardiogram done today shows a normal LV systolic function with an estimated ejection of 50%. There is no sign either of systolic or diastolic heart failure. Regarding his EKG, there is a benign finding of bigeminy, no acute ST changes to suggest ischemia. At this point, I will continue primary prevention for CAD. Continue the chemotherapy. He should follow up with another echocardiogram in around 3-6 months and follow with cardiology on an outpatient basis. Thank you for the opportunity to take part in the care of this patient. We will be available on a p.r.n. basis for any other questions or concerns. MD ROJELIO Plata/ /5:24 PM /7:30 PM RAVINDRA
[2017-08-14] VITALS (7 sets, daily range): BP systolic 124–149; BP diastolic 81–99; PULSE 68–77; RESP 15–20; TEMP 97.6–98.3; O2SAT 99–100
[2017-08-14] MEDS: ENOXAPARIN SODIUM 60 MG/0.6 ML SYRINGE SQ SCH ×2 (03:10)
[2017-08-14 03:33] LABS: BASOPHIL % 0.2 % (0.0-2.0); HEMATOCRIT 26.6 % (39.0-51.0); HEMOGLOBIN 8.5 GM/DL (13.0-17.0); LYMPH % 2.9 % (9.0-44.0); LYMPHOCYTE # 0.5 TH/MM3 (1.0-4.8); MEAN CELL VOLUME 85.4 FL (80.0-100.0); MEAN CORPUSCULAR HEMOGLOBIN 27.1 PG (27.0-34.0); MEAN CORPUSCULAR HGB CONC 31.8 % (32.0-36.0); MEAN PLATELET VOLUME 7.4 FL (7.0-11.0); MONO % 2.3 % (0.0-8.0); MONOCYTE # 0.4 TH/MM3 (0-0.9); NEUT % 94.6 % (16.0-70.0); PLATELET COUNT 332 TH/MM3 (150-450); RED BLOOD COUNT 3.12 MIL/MM3 (4.50-5.90); RED CELL DISTRIBUTION WIDTH 17.8 % (11.6-17.2)
[2017-08-14 03:40] LABS: INTERNATIONAL NORMALIZED RATIO 2.2 RATIO; PROTHROMBIN TIME - PATIENT 24.6 SEC (9.8-11.6)
[2017-08-14 03:46] LABS: ALBUMIN 2.3 GM/DL (3.4-5.0); ALT (GPT) 8 U/L (12-78); AST (GOT) 6 U/L (15-37); BICARBONATE 28.4 MEQ/L (21.0-32.0); BLOOD UREA NITROGEN 7 MG/DL (7-18); CALCIUM 8.7 MG/DL (8.5-10.1); CHLORIDE 103 MEQ/L (98-107); GLOMERULAR FILTRATION RATE 214 ML/MIN (>89); GLUCOSE,RANDOM 117 MG/DL (74-106); MAGNESIUM 1.8 MG/DL (1.5-2.5); SODIUM (NA) 140 MEQ/L (136-145)
[2017-08-14 03:49] LABS: ALKALINE PHOSPHATASE 105 U/L (45-117); TOTAL BILIRUBIN ADULT 0.1 MG/DL (0.2-1.0); TOTAL PROTEIN 6.3 GM/DL (6.4-8.2)
[2017-08-14] MEDS: NIFEdipine 90 MG SUSTAINED RELEASE TAB PO SCH ×2 (08:52)
[2017-08-14] MEDS: PANTOPRAZOLE SOD 40 MG DELAYED RELEASE TAB PO SCH ×2 (08:52)
--- NOTE | 2017-08-14 09:14 | EKG ---
Date Performed: 08/13/2017 Time Performed: 13:47:22 PTAGE: 47 years EKG: Sinus rhythm WITH FREQUENT VENTRICULAR PREMATURE COMPLEXES IN A BIGEMINAL PATTERN NONSPECIFIC T-WAVE ABNORMALITY ABNORMAL RHYTHM ECG NO PREVIOUS TRACING DOCTOR: Angelo Vega Interpretating Date/Time 08/14/2017 09:11:51
--- NOTE | 2017-08-14 12:15 | PD.ONC.PN ---
Subjective Subjective Remarks Afebrile overnight. Patient resting in bed. States he has no appetite. No dizziness or fatigue. +night sweats last night. Objective Data Date Time Temp Pulse Resp B/P (MAP) Pulse Ox O2 Delivery O2 Flow Rate FiO2 08/14/17 08:48 97.8 68 18 149/93 (111) 100 08/14/17 08:00 70 08/14/17 02:57 97.6 77 15 135/88 (104) 99 08/13/17 23:27 97.7 77 14 115/79 (91) 100 08/13/17 20:00 98.1 70 14 121/73 (89) 100 08/13/17 20:00 80 08/13/17 16:54 98.4 85 18 138/76 (96) 100 08/13/17 13:30 97.9 46 16 138/77 (97) 99 08/14/17 08/14/17 08/14/17 07:00 15:00 23:00 Output Total 950 ml Balance -950 ml Result Diagram: 08/14/17 0300 08/14/17 0300 Laboratory Results Laboratory Tests Test 08/14/17 03:00 White Blood Count 18.0 TH/MM3 Red Blood Count 3.12 MIL/MM3 Hemoglobin 8.5 GM/DL Hematocrit 26.6 % Mean Corpuscular Volume 85.4 FL Mean Corpuscular Hemoglobin 27.1 PG Mean Corpuscular Hemoglobin Concent 31.8 % Red Cell Distribution Width 17.8 % Platelet Count 332 TH/MM3 Mean Platelet Volume 7.4 FL Neutrophils (%) (Auto) 94.6 % Lymphocytes (%) (Auto) 2.9 % Monocytes (%) (Auto) 2.3 % Eosinophils (%) (Auto) 0.0 % Basophils (%) (Auto) 0.2 % Neutrophils # (Auto) 17.0 TH/MM3 Lymphocytes # (Auto) 0.5 TH/MM3 Monocytes # (Auto) 0.4 TH/MM3 Eosinophils # (Auto) 0.0 TH/MM3 Basophils # (Auto) 0.0 TH/MM3 CBC Comment DIFF FINAL Differential Comment Prothrombin Time 24.6 SEC Prothromb Time International Ratio 2.2 RATIO Blood Urea Nitrogen 7 MG/DL Creatinine 0.50 MG/DL Random Glucose 117 MG/DL Total Protein 6.3 GM/DL Albumin 2.3 GM/DL Calcium Level 8.7 MG/DL Phosphorus Level 3.0 MG/DL Magnesium Level 1.8 MG/DL Uric Acid 2.2 MG/DL Alkaline Phosphatase 105 U/L Aspartate Amino Transf (AST/SGOT) 6 U/L Alanine Aminotransferase (ALT/SGPT) 8 U/L Total Bilirubin 0.1 MG/DL Sodium Level 140 MEQ/L Potassium Level 3.6 MEQ/L Chloride Level 103 MEQ/L Carbon Dioxide Level 28.4 MEQ/L Anion Gap 9 MEQ/L Estimat Glomerular Filtration Rate 214 ML/MIN Administered Medications Medications (Trade) Dose Ordered Sig/Shyla Route PRN Reason Start Time Stop Time Status Last Admin Dose Admin Pantoprazole Sodium (Protonix) 40 mg DAILY PO 08/12/17 11:00 08/14/17 08:52 Warfarin Sodium (Coumadin) 6 mg DAILY@16 PO 08/12/17 16:00 08/13/17 17:00 Enoxaparin Sodium (Lovenox Inj) 50 mg Q12H SQ 08/12/17 14:00 08/14/17 03:10 Nifedipine (Procardia Xl) 90 mg DAILY PO 08/13/17 09:00 08/14/17 08:52 Objective Remarks GENERAL: Middle aged male sitting up in bed in [facility]. SKIN: Warm and dry. HEAD: Normocephalic. EYES: No injection or drainage. NECK: Supple, trachea midline. CARDIOVASCULAR: Regular rate and rhythm . RESPIRATORY: Breath sounds equal bilaterally. No accessory muscle use. GASTROINTESTINAL: Abdomen soft, non-tender, nondistended. EXTREMITIES: No cyanosis NEUROLOGICAL: awake and alert, normal speech. Assessment/Plan Problem List: (1) Non-Hodgkin lymphoma ICD Codes: C85.90 - Non-Hodgkin lymphoma, unspecified, unspecified site Status: Acute Plan: 08/11: D0--received Rituxan at Clinic 08/12: admission, Day 1 EPOCH 08/13. D2 EPOCH to start at 1500 today. around 1400 chemotherapy stopped d/t Bigeminy seen on EKG. Cardiology evaluate and cleared patient to resume chemotherapy 08/14. D2 EPOCH. 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 --CT showed diffuse adenopathy in the bilateral axilla, supraclavicular, mediastinum and retroperitoneum. Bone marrow was not involved. Clinically Stage III. --has now completed one cycle of Rituxan and CHOP, followed by three cycles of Rituxan and EPOCH. --has tolerated treatment very well.no new adenopathy noted. --was supposed to have a PET scan for restaging last week but has it has been rescheduled for two more weeks. --have talked to the patient and family multiple times regarding consolidation bone marrow transplant but they are not interested. (2) Pulmonary emboli ICD Codes: I26.99 - Other pulmonary embolism without acute cor pulmonale Status: Chronic Plan: --currently on coumadin. --history of pulmonary embolism. --had massive pulmonary embolism during his previous hospital stay. --had t-PA treatment. (3) Pleural effusion ICD Codes: J90 - Pleural effusion, not elsewhere classified Status: Resolved Plan: --Pleural effusion status post thoracentesis of the right lung. --Pleural fluid has not reaccumulated. (4) Hypertension ICD Codes: I10 - Essential (primary) hypertension Plan: --on Nifedipine. Assessment 47y/o male with high-risk non-Hodgkin B-cell lymphoma, admitted for chemotherapy. h/o Non-Hodgkin's B-cell lymphoma as above. Hypertension. Pulmonary embolism. Renal failure requiring temporary dialysis. Plan 1. resume chemotherapy today 2. monitor CBC, CMP, uric acid, magnesium phosphorus. 3. stop Lovenox. INR is therapeutic. 4. start Marinol as appetite stimulant Attending Statement The exam, history, and the medical decision-making described in the above note were completed with the assistance of the mid-level provider. I reviewed and agree with the findings presented. I attest that I had a [id number] encounter with the patient on the same day, and personally performed and documented my assessment and findings in the medical record. No CP/SOB. ECHO showed no normal EF. Appreciate cardiology consult. Restart chemo per protocol today. Problem Qualifiers (1) Non-Hodgkin lymphoma: Qualified Codes: C83.38 - Diffuse large b-cell lymphoma, lymph nodes of multiple sites Brenda Platt Aug 14, 2017 12:14 Ruslan Connelly MD Aug 14, 2017 16:19
[2017-08-14] MEDS: predniSONE 50 MG TAB PO SCH ×2 (13:10)
[2017-08-14] MEDS: predniSONE 5 MG TAB PO SCH ×2 (13:11)
[2017-08-14] MEDS: GRANISETRON HCL 1 MG/ML VIAL IV PUSH SCH ×2 (14:28)
[2017-08-14] MEDS: [UNRECOGNIZED DRUG - OTHER] IV SCH ×8 (15:59)
[2017-08-14] MEDS: DOXORUBICIN IV SCH ×8 (15:59)
[2017-08-14] MEDS: VINCRISTINE IV SCH ×8 (15:59)
[2017-08-14] MEDS: ETOPOSIDE IV SCH ×8 (15:59)
[2017-08-14] MEDS: WARFARIN SOD 6 MG TAB PO SCH ×2 (16:09)
[2017-08-14] MEDS: DRONABINOL 2.5 MG CAP PO SCH ×2 (16:56)
[2017-08-15] VITALS (10 sets, daily range): BP systolic 115–160; BP diastolic 77–100; PULSE 57–81; RESP 14–18; TEMP 97.7–98.4; O2SAT 100
[2017-08-15] MEDS: predniSONE 5 MG TAB PO SCH ×4 (00:33→12:10)
[2017-08-15] MEDS: predniSONE 50 MG TAB PO SCH ×4 (00:33→12:10)
[2017-08-15 05:44] LABS: AUTOMATED NEUTROPHIL # 15.3 TH/MM3 (1.8-7.7); HEMATOCRIT 25.2 % (39.0-51.0); HEMOGLOBIN 8.2 GM/DL (13.0-17.0); LYMPH % 1.7 % (9.0-44.0); LYMPHOCYTE # 0.3 TH/MM3 (1.0-4.8); MEAN CORPUSCULAR HGB CONC 32.5 % (32.0-36.0); MEAN PLATELET VOLUME 7.7 FL (7.0-11.0); MONO % 1.5 % (0.0-8.0); MONOCYTE # 0.2 TH/MM3 (0-0.9); NEUT % 96.8 % (16.0-70.0); PLATELET COUNT 310 TH/MM3 (150-450); RED BLOOD COUNT 2.93 MIL/MM3 (4.50-5.90); WHITE BLOOD COUNT 15.8 TH/MM3 (4.0-11.0)
[2017-08-15 05:55] LABS: INTERNATIONAL NORMALIZED RATIO 2.6 RATIO; PROTHROMBIN TIME - PATIENT 29.5 SEC (9.8-11.6)
[2017-08-15 05:56] LABS: ALBUMIN 2.2 GM/DL (3.4-5.0); AST (GOT) 4 U/L (15-37); BICARBONATE 28.2 MEQ/L (21.0-32.0); BLOOD UREA NITROGEN 11 MG/DL (7-18); CALCIUM 8.2 MG/DL (8.5-10.1); CHLORIDE 103 MEQ/L (98-107); CREATININE 0.45 MG/DL (0.60-1.30); GLOMERULAR FILTRATION RATE 242 ML/MIN (>89); GLUCOSE,RANDOM 111 MG/DL (74-106); MAGNESIUM 1.6 MG/DL (1.5-2.5); SODIUM (NA) 139 MEQ/L (136-145)
[2017-08-15 05:59] LABS: ALKALINE PHOSPHATASE 98 U/L (45-117); ALT (GPT) 11 U/L (12-78); PHOSPHORUS 2.7 MG/DL (2.5-4.9); TOTAL BILIRUBIN ADULT LESS THAN 0.1 MG/DL (0.2-1.0)
[2017-08-15] MEDS: PANTOPRAZOLE SOD 40 MG DELAYED RELEASE TAB PO SCH ×2 (08:20)
[2017-08-15] MEDS: NIFEdipine 90 MG SUSTAINED RELEASE TAB PO SCH ×2 (08:21)
--- NOTE | 2017-08-15 10:50 | PD.ONC.PN ---
Subjective Subjective Remarks Afebrile overnight. Patient resting in bed in nad. Tolerating chemotherapy. Appetite improved with marinol. Objective Data Date Time Temp Pulse Resp B/P (MAP) Pulse Ox O2 Delivery O2 Flow Rate FiO2 08/15/17 08:18 97.8 67 16 160/100 (120) 100 08/15/17 04:48 97.8 62 16 141/92 (108) 100 08/15/17 01:28 76 08/15/17 00:34 97.7 73 16 124/81 (95) 100 08/14/17 20:50 97.7 75 16 140/88 (105) 100 08/14/17 16:39 77 08/14/17 16:00 98.3 70 18 142/88 (106) 100 08/14/17 12:00 97.9 71 20 149/99 (116) 100 08/15/17 08/15/17 08/15/17 07:00 15:00 23:00 Intake Total 480 ml 257.6 ml Output Total 750 ml Balance -270 ml 257.6 ml Result Diagram: 08/15/17 0445 08/15/17 0445 Laboratory Results Laboratory Tests Test 08/15/17 04:45 White Blood Count 15.8 TH/MM3 Red Blood Count 2.93 MIL/MM3 Hemoglobin 8.2 GM/DL Hematocrit 25.2 % Mean Corpuscular Volume 86.0 FL Mean Corpuscular Hemoglobin 28.0 PG Mean Corpuscular Hemoglobin Concent 32.5 % Red Cell Distribution Width 18.0 % Platelet Count 310 TH/MM3 Mean Platelet Volume 7.7 FL Neutrophils (%) (Auto) 96.8 % Lymphocytes (%) (Auto) 1.7 % Monocytes (%) (Auto) 1.5 % Eosinophils (%) (Auto) 0.0 % Basophils (%) (Auto) 0.0 % Neutrophils # (Auto) 15.3 TH/MM3 Lymphocytes # (Auto) 0.3 TH/MM3 Monocytes # (Auto) 0.2 TH/MM3 Eosinophils # (Auto) 0.0 TH/MM3 Basophils # (Auto) 0.0 TH/MM3 CBC Comment DIFF FINAL Differential Comment Prothrombin Time 29.5 SEC Prothromb Time International Ratio 2.6 RATIO Blood Urea Nitrogen 11 MG/DL Creatinine 0.45 MG/DL Random Glucose 111 MG/DL Total Protein 6.0 GM/DL Albumin 2.2 GM/DL Calcium Level 8.2 MG/DL Phosphorus Level 2.7 MG/DL Magnesium Level 1.6 MG/DL Uric Acid 2.5 MG/DL Alkaline Phosphatase 98 U/L Aspartate Amino Transf (AST/SGOT) 4 U/L Alanine Aminotransferase (ALT/SGPT) 11 U/L Total Bilirubin LESS THAN 0.1 MG/DL Sodium Level 139 MEQ/L Potassium Level 3.7 MEQ/L Chloride Level 103 MEQ/L Carbon Dioxide Level 28.2 MEQ/L Anion Gap 8 MEQ/L Estimat Glomerular Filtration Rate 242 ML/MIN Administered Medications Medications (Trade) Dose Ordered Sig/Shyla Route PRN Reason Start Time Stop Time Status Last Admin Dose Admin Pantoprazole Sodium (Protonix) 40 mg DAILY PO 08/12/17 11:00 08/15/17 08:20 Warfarin Sodium (Coumadin) 6 mg DAILY@16 PO 08/12/17 16:00 08/14/17 16:09 Nifedipine (Procardia Xl) 90 mg DAILY PO 08/13/17 09:00 08/15/17 08:21 Granisetron HCl (Kytril Inj) 1 mg DAILY@1330 IV PUSH 08/14/17 13:30 08/17/17 13:31 08/14/17 14:28 Etoposide 87.5 mg/ Doxorubicin HCl 17.5 mg/ Vincristine Sulfate 0.7 mg/ Sodium Chloride 513.825 ml @ 21.419 mls/hr DAILY@1400 IV 08/14/17 14:00 08/17/17 13:59 08/14/17 15:59 Prednisone (Deltasone) 100 mg Q12H PO 08/14/17 13:00 08/18/17 01:01 08/15/17 00:33 Prednisone (Deltasone) 5 mg Q12H PO 08/14/17 13:00 08/18/17 01:01 08/15/17 00:33 Dronabinol (Marinol) 2.5 mg BID@11,16 PO 08/14/17 16:00 08/14/17 16:56 Objective Remarks GENERAL: Middle aged male upright in bed. SKIN: Warm and dry. HEAD: Normocephalic. EYES: No injection or drainage. NECK: Supple, trachea midline. CARDIOVASCULAR: Regular rate and rhythm . RESPIRATORY: Breath sounds equal bilaterally. No accessory muscle use. GASTROINTESTINAL: Abdomen soft, non-tender, nondistended. EXTREMITIES: No cyanosis NEUROLOGICAL: awake and alert, normal speech. moving all extremities. Assessment/Plan Problem List: (1) Non-Hodgkin lymphoma ICD Codes: C85.90 - Non-Hodgkin lymphoma, unspecified, unspecified site Status: Acute Plan: 08/11: D0--received Rituxan at Clinic 08/12: admission, Day 1 EPOCH 08/13. D2 EPOCH to start at 1500 today. around 1400 chemotherapy stopped d/t Bigeminy seen on EKG. Cardiology evaluate and cleared patient to resume chemotherapy 08/14. D2 EPOCH started on 1530 08/15: D3 EPOCH to start at 1530. 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 --CT showed diffuse adenopathy in the bilateral axilla, supraclavicular, mediastinum and retroperitoneum. Bone marrow was not involved. Clinically Stage III. --has now completed one cycle of Rituxan and CHOP, followed by three cycles of Rituxan and EPOCH. --has tolerated treatment very well.no new adenopathy noted. --was supposed to have a PET scan for restaging last week but has it has been rescheduled for two more weeks. --have talked to the patient and family multiple times regarding consolidation bone marrow transplant but they are not interested. (2) Pulmonary emboli ICD Codes: I26.99 - Other pulmonary embolism without acute cor pulmonale Status: Chronic Plan: --currently on coumadin. --history of pulmonary embolism. --had massive pulmonary embolism during his previous hospital stay. --had t-PA treatment. (3) Pleural effusion ICD Codes: J90 - Pleural effusion, not elsewhere classified Status: Resolved Plan: --Pleural effusion status post thoracentesis of the right lung. --Pleural fluid has not reaccumulated. (4) Hypertension ICD Codes: I10 - Essential (primary) hypertension Plan: --on Nifedipine. Assessment 47y/o male with high-risk non-Hodgkin B-cell lymphoma, admitted for chemotherapy. h/o Non-Hodgkin's B-cell lymphoma as above. Hypertension. Pulmonary embolism. Renal failure requiring temporary dialysis. Plan 1. monitor CBC, CMP, uric acid, magnesium phosphorus. 2. continue coumadin 3. Day 3 of EPOCH to start at 1530. Attending Statement The exam, history, and the medical decision-making described in the above note were completed with the assistance of the mid-level provider. I reviewed and agree with the findings presented. I attest that I had a [id number] encounter with the patient on the same day, and personally performed and documented my assessment and findings in the medical record. 47 yoM with DLBCL with myc, BCL2 and BCL6. He is currently being treated with R-ECPOCH. He is day 3 of therapy. He is tolerating therapy well. Will continue to follow labs and vitals and monitor closely for side effects. Problem Qualifiers (1) Non-Hodgkin lymphoma: Qualified Codes: C83.38 - Diffuse large b-cell lymphoma, lymph nodes of multiple sites Brenda Platt Aug 15, 2017 10:50 Sary Carpio MD Aug 15, 2017 16:52
[2017-08-15] MEDS: DRONABINOL 2.5 MG CAP PO SCH ×4 (12:10→18:41)
[2017-08-15] MEDS: GRANISETRON HCL 1 MG/ML VIAL IV PUSH SCH ×2 (18:40)
[2017-08-15] MEDS: WARFARIN SOD 6 MG TAB PO SCH ×2 (18:41)
[2017-08-15] MEDS: DOXORUBICIN IV SCH ×8 (19:37)
[2017-08-15] MEDS: [UNRECOGNIZED DRUG - OTHER] IV SCH ×8 (19:37)
[2017-08-15] MEDS: VINCRISTINE IV SCH ×8 (19:37)
[2017-08-15] MEDS: ETOPOSIDE IV SCH ×8 (19:37)
[2017-08-16] VITALS (8 sets, daily range): BP systolic 127–147; BP diastolic 76–97; PULSE 60–73; RESP 14–19; TEMP 97.6–98.2; O2SAT 100
[2017-08-16] MEDS: predniSONE 50 MG TAB PO SCH ×4 (01:10→12:58)
[2017-08-16] MEDS: predniSONE 5 MG TAB PO SCH ×4 (01:10→12:58)
[2017-08-16 04:36] LABS: HEMATOCRIT 25.6 % (39.0-51.0); HEMOGLOBIN 8.3 GM/DL (13.0-17.0); MEAN CELL VOLUME 84.9 FL (80.0-100.0); MEAN CORPUSCULAR HEMOGLOBIN 27.6 PG (27.0-34.0); MEAN CORPUSCULAR HGB CONC 32.5 % (32.0-36.0); RED BLOOD COUNT 3.02 MIL/MM3 (4.50-5.90); RED CELL DISTRIBUTION WIDTH 17.9 % (11.6-17.2); WHITE BLOOD COUNT 14.2 TH/MM3 (4.0-11.0)
[2017-08-16 04:37] LABS: AUTOMATED NEUTROPHIL # 13.9 TH/MM3 (1.8-7.7); BASOPHIL % 0.2 % (0.0-2.0); LYMPH % 1.5 % (9.0-44.0); LYMPHOCYTE # 0.2 TH/MM3 (1.0-4.8); MEAN PLATELET VOLUME 7.5 FL (7.0-11.0); MONO % 0.9 % (0.0-8.0); MONOCYTE # 0.1 TH/MM3 (0-0.9); NEUT % 97.4 % (16.0-70.0); PLATELET COUNT 305 TH/MM3 (150-450)
[2017-08-16 05:11] LABS: ALBUMIN 2.3 GM/DL (3.4-5.0); AST (GOT) 6 U/L (15-37); BICARBONATE 29.5 MEQ/L (21.0-32.0); BLOOD UREA NITROGEN 11 MG/DL (7-18); CALCIUM 8.2 MG/DL (8.5-10.1); CHLORIDE 102 MEQ/L (98-107); CREATININE 0.48 MG/DL (0.60-1.30); GLOMERULAR FILTRATION RATE 225 ML/MIN (>89); GLUCOSE,RANDOM 107 MG/DL (74-106); MAGNESIUM 1.5 MG/DL (1.5-2.5); SODIUM (NA) 140 MEQ/L (136-145)
[2017-08-16 05:15] LABS: INTERNATIONAL NORMALIZED RATIO 3.7 RATIO; PROTHROMBIN TIME - PATIENT 42.9 SEC (9.8-11.6)
[2017-08-16 05:15] LABS: ALKALINE PHOSPHATASE 89 U/L (45-117); ALT (GPT) 9 U/L (12-78); PHOSPHORUS 2.8 MG/DL (2.5-4.9); TOTAL BILIRUBIN ADULT 0.1 MG/DL (0.2-1.0); TOTAL PROTEIN 5.8 GM/DL (6.4-8.2)
[2017-08-16] MEDS: NIFEdipine 90 MG SUSTAINED RELEASE TAB PO SCH ×2 (08:07)
[2017-08-16] MEDS: PANTOPRAZOLE SOD 40 MG DELAYED RELEASE TAB PO SCH ×2 (08:07)
--- NOTE | 2017-08-16 09:09 | PD.ONC.PN ---
Subjective Subjective Remarks Afebrile overnight. Tolerating chemotherapy. NO nausea or vomiting. No diarrhea. urinating well. having BM good appetite since started on Marinol. Objective Data Date Time Temp Pulse Resp B/P (MAP) Pulse Ox O2 Delivery O2 Flow Rate FiO2 08/16/17 08:04 97.6 69 14 127/93 (104) 100 08/16/17 04:00 97.8 68 17 147/97 (114) 100 08/16/17 00:00 97.8 69 19 128/86 (100) 100 08/15/17 20:40 73 08/15/17 20:00 98.0 73 18 139/87 (104) 100 08/15/17 19:50 97.8 81 14 115/77 (90) 08/15/17 17:39 98.4 71 16 143/88 (106) 100 08/15/17 12:49 97.9 57 16 153/94 (113) 100 08/16/17 08/16/17 08/16/17 07:00 15:00 23:00 Intake Total 720 ml Output Total 1150 ml Balance -430 ml Result Diagram: 08/16/17 0405 08/16/17 0405 Laboratory Results Laboratory Tests Test 08/16/17 04:05 08/16/17 06:00 White Blood Count 14.2 TH/MM3 Red Blood Count 3.02 MIL/MM3 Hemoglobin 8.3 GM/DL Hematocrit 25.6 % Mean Corpuscular Volume 84.9 FL Mean Corpuscular Hemoglobin 27.6 PG Mean Corpuscular Hemoglobin Concent 32.5 % Red Cell Distribution Width 17.9 % Platelet Count 305 TH/MM3 Mean Platelet Volume 7.5 FL Neutrophils (%) (Auto) 97.4 % Lymphocytes (%) (Auto) 1.5 % Monocytes (%) (Auto) 0.9 % Eosinophils (%) (Auto) 0.0 % Basophils (%) (Auto) 0.2 % Neutrophils # (Auto) 13.9 TH/MM3 Lymphocytes # (Auto) 0.2 TH/MM3 Monocytes # (Auto) 0.1 TH/MM3 Eosinophils # (Auto) 0.0 TH/MM3 Basophils # (Auto) 0.0 TH/MM3 CBC Comment DIFF FINAL Differential Comment Blood Urea Nitrogen 11 MG/DL Creatinine 0.48 MG/DL Random Glucose 107 MG/DL Total Protein 5.8 GM/DL Albumin 2.3 GM/DL Calcium Level 8.2 MG/DL Phosphorus Level 2.8 MG/DL Magnesium Level 1.5 MG/DL Uric Acid 2.6 MG/DL Alkaline Phosphatase 89 U/L Aspartate Amino Transf (AST/SGOT) 6 U/L Alanine Aminotransferase (ALT/SGPT) 9 U/L Total Bilirubin 0.1 MG/DL Sodium Level 140 MEQ/L Potassium Level 3.5 MEQ/L Chloride Level 102 MEQ/L Carbon Dioxide Level 29.5 MEQ/L Anion Gap 9 MEQ/L Estimat Glomerular Filtration Rate 225 ML/MIN Prothrombin Time 42.9 SEC Prothromb Time International Ratio 3.7 RATIO Administered Medications Medications (Trade) Dose Ordered Sig/Shyla Route PRN Reason Start Time Stop Time Status Last Admin Dose Admin Pantoprazole Sodium (Protonix) 40 mg DAILY PO 08/12/17 11:00 08/16/17 08:07 Warfarin Sodium (Coumadin) 6 mg DAILY@16 PO 08/12/17 16:00 Future Hold 08/15/17 18:41 Nifedipine (Procardia Xl) 90 mg DAILY PO 08/13/17 09:00 08/16/17 08:07 Granisetron HCl (Kytril Inj) 1 mg DAILY@1330 IV PUSH 08/14/17 13:30 08/17/17 13:31 08/15/17 18:40 Etoposide 87.5 mg/ Doxorubicin HCl 17.5 mg/ Vincristine Sulfate 0.7 mg/ Sodium Chloride 513.825 ml @ 21.419 mls/hr DAILY@1400 IV 08/14/17 14:00 08/17/17 13:59 08/15/17 19:37 Prednisone (Deltasone) 100 mg Q12H PO 08/14/17 13:00 08/18/17 01:01 08/16/17 01:10 Prednisone (Deltasone) 5 mg Q12H PO 08/14/17 13:00 08/18/17 01:01 08/16/17 01:10 Dronabinol (Marinol) 2.5 mg BID@11,16 PO 08/14/17 16:00 08/15/17 18:41 Objective Remarks GENERAL: Middle aged male upright in bed in nad. SKIN: Warm and dry. HEAD: Normocephalic. EYES: No injection or drainage. NECK: Supple, trachea midline. CARDIOVASCULAR: Regular rate and rhythm RESPIRATORY: Breath sounds equal bilaterally. No accessory muscle use. GASTROINTESTINAL: Abdomen soft, non-tender, nondistended. EXTREMITIES: No cyanosis, or edema. NEUROLOGICAL: No obvious focal deficit. Awake, alert, and oriented x3. Assessment/Plan Problem List: (1) Non-Hodgkin lymphoma ICD Codes: C85.90 - Non-Hodgkin lymphoma, unspecified, unspecified site Status: Acute Plan: 08/11: D0--received Rituxan at Clinic 08/12: admission, Day 1 EPOCH 08/13. D2 EPOCH to start at 1500 today. around 1400 chemotherapy stopped d/t Bigeminy seen on EKG. Cardiology evaluate and cleared patient to resume chemotherapy 08/14. D2 EPOCH started on 1530 08/15: D3 EPOCH to start at 1530. 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 --CT showed diffuse adenopathy in the bilateral axilla, supraclavicular, mediastinum and retroperitoneum. Bone marrow was not involved. Clinically Stage III. --has now completed one cycle of Rituxan and CHOP, followed by three cycles of Rituxan and EPOCH. --has tolerated treatment very well.no new adenopathy noted. --was supposed to have a PET scan for restaging last week but has it has been rescheduled for two more weeks. --have talked to the patient and family multiple times regarding consolidation bone marrow transplant but they are not interested. (2) Pulmonary emboli ICD Codes: I26.99 - Other pulmonary embolism without acute cor pulmonale Status: Chronic Plan: --currently on coumadin. --history of pulmonary embolism. --had massive pulmonary embolism during his previous hospital stay. --had t-PA treatment. (3) Pleural effusion ICD Codes: J90 - Pleural effusion, not elsewhere classified Status: Resolved Plan: --Pleural effusion status post thoracentesis of the right lung. --Pleural fluid has not reaccumulated. (4) Hypertension ICD Codes: I10 - Essential (primary) hypertension Plan: --on Nifedipine. Assessment 47y/o male with high-risk non-Hodgkin B-cell lymphoma, admitted for chemotherapy. h/o Non-Hodgkin's B-cell lymphoma as above. Hypertension. Pulmonary embolism. Renal failure requiring temporary dialysis. Plan 1. monitor CBC, CMP, uric acid, magnesium phosphorus. 2. hold coumadin for supra-therapeutic INR today 3. Day 4 of EPOCH to start at 1530. Attending Statement The exam, history, and the medical decision-making described in the above note were completed with the assistance of the mid-level provider. I reviewed and agree with the findings presented. I attest that I had a [id number] encounter with the patient on the same day, and personally performed and documented my assessment and findings in the medical record. 47 yoM with DLBCL admitted for EPOCH therapy. Tolerating well. AF, VSS. Holding warfarin due to supratherapeutic INR of 3.7. Patient with no bleeding. Problem Qualifiers (1) Non-Hodgkin lymphoma: Qualified Codes: C83.38 - Diffuse large b-cell lymphoma, lymph nodes of multiple sites Brenda Platt Aug 16, 2017 09:09 Sary Carpio MD Aug 16, 2017 12:48
[2017-08-16] MEDS: DRONABINOL 2.5 MG CAP PO SCH ×4 (13:30→16:51)
[2017-08-16] MEDS ORDERED: CYCLOPHOSPHAMIDE IV ONE ×4 (14:00)
[2017-08-16] MEDS ORDERED: SODIUM CHLORID 0.9% IV ONE ×4 (14:00)
[2017-08-16] MEDS: GRANISETRON HCL 1 MG/ML VIAL IV PUSH SCH ×2 (21:01)
[2017-08-16] MEDS: ETOPOSIDE IV SCH ×8 (21:06)
[2017-08-16] MEDS: [UNRECOGNIZED DRUG - OTHER] IV SCH ×8 (21:06)
[2017-08-16] MEDS: DOXORUBICIN IV SCH ×8 (21:06)
[2017-08-16] MEDS: VINCRISTINE IV SCH ×8 (21:06)
[2017-08-17] VITALS (10 sets, daily range): BP systolic 133–155; BP diastolic 83–99; PULSE 59–74; RESP 16–18; TEMP 97.8–98.4; O2SAT 100
[2017-08-17] MEDS: predniSONE 50 MG TAB PO SCH ×4 (00:28→14:06)
[2017-08-17] MEDS: predniSONE 5 MG TAB PO SCH ×4 (00:28→14:06)
[2017-08-17 05:10] LABS: INTERNATIONAL NORMALIZED RATIO 3.8 RATIO; PROTHROMBIN TIME - PATIENT 44.4 SEC (9.8-11.6)
[2017-08-17] MEDS: NIFEdipine 90 MG SUSTAINED RELEASE TAB PO SCH ×2 (08:03)
[2017-08-17] MEDS: PANTOPRAZOLE SOD 40 MG DELAYED RELEASE TAB PO SCH ×2 (08:03)
--- NOTE | 2017-08-17 10:35 | PD.ONC.PN ---
Subjective Subjective Remarks Afebrile overnight. Patient resting in bed. Tolerating chemotherapy. No adverse reactions. Objective Data Date Time Temp Pulse Resp B/P (MAP) Pulse Ox O2 Delivery O2 Flow Rate FiO2 08/17/17 08:01 97.9 65 18 142/90 (107) 100 08/17/17 04:31 98.3 64 16 155/99 (117) 100 08/17/17 04:11 60 08/17/17 00:25 97.8 74 16 137/91 (106) 100 08/17/17 00:05 59 08/16/17 20:42 98.2 73 16 131/83 (99) 100 08/16/17 20:16 67 08/16/17 16:00 98.2 67 18 128/76 (93) 100 08/16/17 12:02 97.9 69 14 140/84 (102) 100 08/17/17 08/17/17 08/17/17 07:00 15:00 23:00 Intake Total 290 ml Output Total 1850 ml Balance -1560 ml Result Diagram: 08/16/17 0405 08/16/17 0405 Laboratory Results Laboratory Tests Test 08/17/17 04:35 Prothrombin Time 44.4 SEC Prothromb Time International Ratio 3.8 RATIO Administered Medications Medications (Trade) Dose Ordered Sig/Shyla Route PRN Reason Start Time Stop Time Status Last Admin Dose Admin Pantoprazole Sodium (Protonix) 40 mg DAILY PO 08/12/17 11:00 08/17/17 08:03 Warfarin Sodium (Coumadin) 6 mg DAILY@16 PO 08/12/17 16:00 Future Hold 08/15/17 18:41 Nifedipine (Procardia Xl) 90 mg DAILY PO 08/13/17 09:00 08/17/17 08:03 Granisetron HCl (Kytril Inj) 1 mg DAILY@1330 IV PUSH 08/14/17 13:30 08/17/17 13:31 08/16/17 21:01 Etoposide 87.5 mg/ Doxorubicin HCl 17.5 mg/ Vincristine Sulfate 0.7 mg/ Sodium Chloride 513.825 ml @ 21.419 mls/hr DAILY@1400 IV 08/14/17 14:00 08/17/17 13:59 08/16/17 21:06 Prednisone (Deltasone) 100 mg Q12H PO 08/14/17 13:00 08/18/17 01:01 08/17/17 00:28 Prednisone (Deltasone) 5 mg Q12H PO 08/14/17 13:00 08/18/17 01:01 08/17/17 00:28 Dronabinol (Marinol) 2.5 mg BID@11,16 PO 08/14/17 16:00 08/16/17 16:51 Objective Remarks GENERAL: Middle aged male supine in bed in nad. SKIN: Warm and dry. HEAD: Normocephalic. EYES: No injection or drainage. NECK: Supple, trachea midline. CARDIOVASCULAR: Regular rate and rhythm RESPIRATORY: Breath sounds equal bilaterally. No accessory muscle use. GASTROINTESTINAL: Abdomen soft, non-tender, nondistended. EXTREMITIES: No cyanosis NEUROLOGICAL: awake and alert, normal speech. Assessment/Plan Problem List: (1) Non-Hodgkin lymphoma ICD Codes: C85.90 - Non-Hodgkin lymphoma, unspecified, unspecified site Status: Acute Plan: 08/11: D0--received Rituxan at Clinic 08/12: admission, Day 1 EPOCH 08/13. D2 EPOCH to start at 1500 today. around 1400 chemotherapy stopped d/t Bigeminy seen on EKG. Cardiology evaluate and cleared patient to resume chemotherapy 08/14. D2 EPOCH started on 1530 08/15: D3 EPOCH to start at 1530. 08/16: D4 EPOCH to start at 1930 08/17: chemotherapy will be complete around midnight. 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 --CT showed diffuse adenopathy in the bilateral axilla, supraclavicular, mediastinum and retroperitoneum. Bone marrow was not involved. Clinically Stage III. --has now completed one cycle of Rituxan and CHOP, followed by three cycles of Rituxan and EPOCH. --has tolerated treatment very well.no new adenopathy noted. --was supposed to have a PET scan for restaging last week but has it has been rescheduled for two more weeks. --have talked to the patient and family multiple times regarding consolidation bone marrow transplant but they are not interested. (2) Pulmonary emboli ICD Codes: I26.99 - Other pulmonary embolism without acute cor pulmonale Status: Chronic Plan: --currently on coumadin. --history of pulmonary embolism. --had massive pulmonary embolism during his previous hospital stay. --had t-PA treatment. (3) Pleural effusion ICD Codes: J90 - Pleural effusion, not elsewhere classified Status: Resolved Plan: --Pleural effusion status post thoracentesis of the right lung. --Pleural fluid has not reaccumulated. (4) Hypertension ICD Codes: I10 - Essential (primary) hypertension Plan: --on Nifedipine. Assessment 47y/o male with high-risk non-Hodgkin B-cell lymphoma, admitted for chemotherapy. h/o Non-Hodgkin's B-cell lymphoma as above. Hypertension. Pulmonary embolism. Renal failure requiring temporary dialysis. Plan 1. monitor CBC, CMP, uric acid, magnesium phosphorus. 2. chemo to complete today. will reschedule Neulasta and appointment with Dr. Connelly to Thursday. 3. hold coumadin until INR less than 3.0 Attending Statement The exam, history, and the medical decision-making described in the above note were completed with the assistance of the mid-level provider. I reviewed and agree with the findings presented. I attest that I had a [id number] encounter with the patient on the same day, and personally performed and documented my assessment and findings in the medical record. No CP/SOB. He will complete chemo tomorrow morning. Plan d/c tomorrow and f/u at clinic for Neulasta injection. Continue to titrate coumadin. Problem Qualifiers (1) Non-Hodgkin lymphoma: Qualified Codes: C83.38 - Diffuse large b-cell lymphoma, lymph nodes of multiple sites Brenda Platt Aug 17, 2017 10:35 Ruslan Connelly MD Aug 17, 2017 14:31
[2017-08-17 10:50] LABS: ALBUMIN 2.2 GM/DL (3.4-5.0); AST (GOT) 5 U/L (15-37); BICARBONATE 29.2 MEQ/L (21.0-32.0); BLOOD UREA NITROGEN 12 MG/DL (7-18); CALCIUM 8.1 MG/DL (8.5-10.1); CHLORIDE 102 MEQ/L (98-107); CREATININE 0.43 MG/DL (0.60-1.30); GLOMERULAR FILTRATION RATE 255 ML/MIN (>89); GLUCOSE,RANDOM 104 MG/DL (74-106); MAGNESIUM 1.6 MG/DL (1.5-2.5); SODIUM (NA) 139 MEQ/L (136-145)
[2017-08-17 10:52] LABS: ALKALINE PHOSPHATASE 78 U/L (45-117); ALT (GPT) 11 U/L (12-78); PHOSPHORUS 2.8 MG/DL (2.5-4.9); TOTAL BILIRUBIN ADULT 0.1 MG/DL (0.2-1.0); TOTAL PROTEIN 5.6 GM/DL (6.4-8.2)
[2017-08-17 11:03] LABS: AUTOMATED NEUTROPHIL # 11.3 TH/MM3 (1.8-7.7); BASOPHIL % 0.2 % (0.0-2.0); HEMATOCRIT 25.6 % (39.0-51.0); LYMPH % 1.3 % (9.0-44.0); LYMPHOCYTE # 0.2 TH/MM3 (1.0-4.8); MEAN CELL VOLUME 84.9 FL (80.0-100.0); MEAN CORPUSCULAR HEMOGLOBIN 26.6 PG (27.0-34.0); MEAN CORPUSCULAR HGB CONC 31.4 % (32.0-36.0); MEAN PLATELET VOLUME 7.6 FL (7.0-11.0); MONOCYTE # 0.1 TH/MM3 (0-0.9); NEUT % 97.5 % (16.0-70.0); PLATELET COUNT 314 TH/MM3 (150-450); RED BLOOD COUNT 3.02 MIL/MM3 (4.50-5.90); RED CELL DISTRIBUTION WIDTH 17.5 % (11.6-17.2); WHITE BLOOD COUNT 11.6 TH/MM3 (4.0-11.0)
[2017-08-17] MEDS: DRONABINOL 2.5 MG CAP PO SCH ×4 (11:16→16:27)
[2017-08-17] MEDS: GRANISETRON HCL 1 MG/ML VIAL IV PUSH SCH ×2 (13:30)
[2017-08-17] MEDS ORDERED: SODIUM CHLORID 0.9% IV ONE ×4 (14:00)
[2017-08-17] MEDS ORDERED: CYCLOPHOSPHAMIDE IV ONE ×4 (14:00)
[2017-08-17] MEDS ORDERED: GRANISETRON HCL 1 MG/ML VIAL IV PUSH SCH ×2 (19:53)
[2017-08-18] VITALS (10 sets, daily range): BP systolic 128–142; BP diastolic 75–90; PULSE 61–80; RESP 16–18; TEMP 97.1–98.4; O2SAT 99–100
[2017-08-18] MEDS: predniSONE 50 MG TAB PO SCH ×2 (00:33)
[2017-08-18] MEDS: predniSONE 5 MG TAB PO SCH ×2 (00:34)
[2017-08-18] MEDS ORDERED: SODIUM CHLORIDE 0.9% FLUSH 10 ML FLUSH IV FLUSH PRN ×2 (04:45)
[2017-08-18 05:03] LABS: AUTOMATED NEUTROPHIL # 11.3 TH/MM3 (1.8-7.7); BASOPHIL % 0.1 % (0.0-2.0); HEMATOCRIT 24.9 % (39.0-51.0); HEMOGLOBIN 7.9 GM/DL (13.0-17.0); LYMPH % 1.3 % (9.0-44.0); LYMPHOCYTE # 0.2 TH/MM3 (1.0-4.8); MEAN CELL VOLUME 84.1 FL (80.0-100.0); MEAN CORPUSCULAR HEMOGLOBIN 26.7 PG (27.0-34.0); MEAN CORPUSCULAR HGB CONC 31.7 % (32.0-36.0); MEAN PLATELET VOLUME 7.3 FL (7.0-11.0); MONO % 0.5 % (0.0-8.0); MONOCYTE # 0.1 TH/MM3 (0-0.9); NEUT % 98.1 % (16.0-70.0); PLATELET COUNT 294 TH/MM3 (150-450); RED BLOOD COUNT 2.96 MIL/MM3 (4.50-5.90); RED CELL DISTRIBUTION WIDTH 17.5 % (11.6-17.2); WHITE BLOOD COUNT 11.5 TH/MM3 (4.0-11.0)
[2017-08-18 05:13] LABS: INTERNATIONAL NORMALIZED RATIO 2.8 RATIO; PROTHROMBIN TIME - PATIENT 32.9 SEC (9.8-11.6)
[2017-08-18 05:27] LABS: ALBUMIN 2.1 GM/DL (3.4-5.0); AST (GOT) 5 U/L (15-37); BICARBONATE 27.1 MEQ/L (21.0-32.0); BLOOD UREA NITROGEN 14 MG/DL (7-18); CALCIUM 8.2 MG/DL (8.5-10.1); CHLORIDE 102 MEQ/L (98-107); CREATININE 0.46 MG/DL (0.60-1.30); GLOMERULAR FILTRATION RATE 236 ML/MIN (>89); GLUCOSE,RANDOM 122 MG/DL (74-106); SODIUM (NA) 138 MEQ/L (136-145)
[2017-08-18 05:31] LABS: ALKALINE PHOSPHATASE 70 U/L (45-117); ALT (GPT) 10 U/L (12-78); PHOSPHORUS 2.5 MG/DL (2.5-4.9); TOTAL BILIRUBIN ADULT 0.2 MG/DL (0.2-1.0); TOTAL PROTEIN 5.2 GM/DL (6.4-8.2)
[2017-08-18] MEDS: NIFEdipine 90 MG SUSTAINED RELEASE TAB PO SCH ×2 (09:10)
[2017-08-18] MEDS: PANTOPRAZOLE SOD 40 MG DELAYED RELEASE TAB PO SCH ×2 (09:10)
[2017-08-18] MEDS ORDERED: diphenhydrAMINE HCL 25 MG CAP PO PRN ×2 (10:15)
[2017-08-18] MEDS ORDERED: SODIUM CHLOR 0.9% 250 ML INJ 250 ML IV ONE ×2 (10:15)
[2017-08-18] MEDS ORDERED: ACETAMINOPHEN 325 MG TAB PO PRN ×2 (10:15)
--- NOTE | 2017-08-18 10:20 | PD.ONC.PN ---
Subjective Subjective Remarks Afebrile overnight Pt excited to be going home today No acute complaints Objective Data Date Time Temp Pulse Resp B/P (MAP) Pulse Ox O2 Delivery O2 Flow Rate FiO2 08/18/17 08:15 61 08/18/17 07:28 97.7 70 18 139/90 (106) 100 08/18/17 04:34 97.8 72 16 139/89 (106) 100 08/18/17 04:26 61 08/18/17 00:31 98.1 75 16 135/82 (99) 100 08/18/17 00:06 73 08/17/17 20:59 98.4 71 16 134/83 (100) 100 08/17/17 20:09 74 08/17/17 15:49 98.3 74 18 133/87 (102) 100 08/17/17 11:28 97.8 71 18 137/94 (108) 100 08/18/17 08/18/17 08/18/17 07:00 15:00 23:00 Intake Total 990 ml 240 ml Output Total 650 ml 100 ml Balance 340 ml 140 ml Result Diagram: 08/18/1743908/18/17 0440 Laboratory Results Laboratory Tests Test 08/18/17 04:40 White Blood Count 11.5 TH/MM3 Red Blood Count 2.96 MIL/MM3 Hemoglobin 7.9 GM/DL Hematocrit 24.9 % Mean Corpuscular Volume 84.1 FL Mean Corpuscular Hemoglobin 26.7 PG Mean Corpuscular Hemoglobin Concent 31.7 % Red Cell Distribution Width 17.5 % Platelet Count 294 TH/MM3 Mean Platelet Volume 7.3 FL Neutrophils (%) (Auto) 98.1 % Lymphocytes (%) (Auto) 1.3 % Monocytes (%) (Auto) 0.5 % Eosinophils (%) (Auto) 0.0 % Basophils (%) (Auto) 0.1 % Neutrophils # (Auto) 11.3 TH/MM3 Lymphocytes # (Auto) 0.2 TH/MM3 Monocytes # (Auto) 0.1 TH/MM3 Eosinophils # (Auto) 0.0 TH/MM3 Basophils # (Auto) 0.0 TH/MM3 CBC Comment DIFF FINAL Differential Comment Prothrombin Time 32.9 SEC Prothromb Time International Ratio 2.8 RATIO Blood Urea Nitrogen 14 MG/DL Creatinine 0.46 MG/DL Random Glucose 122 MG/DL Total Protein 5.2 GM/DL Albumin 2.1 GM/DL Calcium Level 8.2 MG/DL Phosphorus Level 2.5 MG/DL Uric Acid 2.8 MG/DL Alkaline Phosphatase 70 U/L Aspartate Amino Transf (AST/SGOT) 5 U/L Alanine Aminotransferase (ALT/SGPT) 10 U/L Total Bilirubin 0.2 MG/DL Sodium Level 138 MEQ/L Potassium Level 3.2 MEQ/L Chloride Level 102 MEQ/L Carbon Dioxide Level 27.1 MEQ/L Anion Gap 9 MEQ/L Estimat Glomerular Filtration Rate 236 ML/MIN Administered Medications Medications (Trade) Dose Ordered Sig/Shyla Route PRN Reason Start Time Stop Time Status Last Admin Dose Admin Pantoprazole Sodium (Protonix) 40 mg DAILY PO 08/12/17 11:00 08/18/17 09:10 Warfarin Sodium (Coumadin) 6 mg DAILY@16 PO 08/12/17 16:00 Future Hold 08/15/17 18:41 Nifedipine (Procardia Xl) 90 mg DAILY PO 08/13/17 09:00 08/18/17 09:10 Dronabinol (Marinol) 2.5 mg BID@,16 PO 08/14/17 16:00 08/17/17 16:27 Sodium Chloride (NS Flush) 5 ml UNSCH PRN IV FLUSH SEE PROTOCOL TABLE 08/18/17 04:45 08/18/17 04:49 Heparin Sodium (Porcine) (Heparin Central Flush) 250 units UNSCH PRN IV FLUSH SEE PROTOCOL TABLE 08/18/17 04:45 08/18/17 04:46 Objective Remarks GENERAL: Middle aged male resting in bed in no acute distress. SKIN: Warm and dry. HEAD: Normocephalic. EYES: No injection or drainage. NECK: Supple, trachea midline. LYMPHATIC: Mild lymphadenopathy to L axilla CARDIOVASCULAR: Regular rate and rhythm without murmurs. RESPIRATORY: Breath sounds equal bilaterally. No accessory muscle use. GASTROINTESTINAL: Abdomen soft, non-tender, nondistended. EXTREMITIES: No cyanosis MUSCULOSKELETAL: Adequate muscle tone. NEUROLOGICAL: No obvious focal deficit. Awake, alert, and oriented x3. Assessment/Plan Problem List: (1) Non-Hodgkin lymphoma ICD Codes: C85.90 - Non-Hodgkin lymphoma, unspecified, unspecified site Status: Acute Plan: 08/11: D0--received Rituxan at Clinic 11/1: admission, Day 1 EPOCH 08/13. D2 EPOCH to start at 1500 today. around 1400 chemotherapy stopped d/t Bigeminy seen on EKG. Cardiology evaluate and cleared patient to resume chemotherapy 08/14. D2 EPOCH started on 1530 08/15: D3 EPOCH to start at 1530. 08/16: D4 EPOCH to start at 1930 08/17: chemotherapy will be complete around midnight. 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 --CT showed diffuse adenopathy in the bilateral axilla, supraclavicular, mediastinum and retroperitoneum. Bone marrow was not involved. Clinically Stage III. --has now completed one cycle of Rituxan and CHOP, followed by three cycles of Rituxan and EPOCH. --has tolerated treatment very well.no new adenopathy noted. --was supposed to have a PET scan for restaging last week but has it has been rescheduled for two more weeks. --have talked to the patient and family multiple times regarding consolidation bone marrow transplant but they are not interested. (2) Pulmonary emboli ICD Codes: I26.99 - Other pulmonary embolism without acute cor pulmonale Status: Chronic Plan: --currently on coumadin. --history of pulmonary embolism. --had massive pulmonary embolism during his previous hospital stay. --had t-PA treatment. (3) Pleural effusion ICD Codes: J90 - Pleural effusion, not elsewhere classified Status: Resolved Plan: --Pleural effusion status post thoracentesis of the right lung. --Pleural fluid has not reaccumulated. (4) Hypertension ICD Codes: I10 - Essential (primary) hypertension Plan: --on Nifedipine. Assessment 47y/o male with high-risk non-Hodgkin B-cell lymphoma, admitted for chemotherapy. h/o Non-Hodgkin's B-cell lymphoma as above. Hypertension. Pulmonary embolism. Renal failure requiring temporary dialysis. Plan 1. OK for discharge today after pt receives 1 unit PRBC. 2. Pt to go to [facility] tomorrow am for Neulasta 3. Resume coumadin at 5mg po daily. Recheck in clinic tomorrow. 4. Supportive care. Attending Statement The exam, history, and the medical decision-making described in the above note were completed with the assistance of the mid-level provider. I reviewed and agree with the findings presented. I attest that I had a [id number] encounter with the patient on the same day, and personally performed and documented my assessment and findings in the medical record. Completed chemo this am. Tolerated well. Hgb trended lower, will transfuse 1U PRBC. D/c this afternoon. F/u oncology clinic for Neulasta injection tomorrow. Problem Qualifiers (1) Non-Hodgkin lymphoma: Qualified Codes: C83.38 - Diffuse large b-cell lymphoma, lymph nodes of multiple sites Tia Montenegro Aug 18, 2017 10:20 Ruslan Connelly MD Aug 18, 2017 11:51
[2017-08-18] MEDS: DRONABINOL 2.5 MG CAP PO SCH ×4 (11:11→16:41)
--- NOTE | 2017-08-18 12:00 | HHI.DCPOC ---
Discharge Care Plan Diagnosis: (1) Non-Hodgkin lymphoma (2) Pulmonary emboli (3) Hypertension Your Health Problems Are: Bleeding Tendency Shortness of Breath Goals to Promote Your Health * To prevent worsening of your condition and complications * To maintain your health at the optimal level Directions to Meet Your Goals Take your medications as prescribed Follow your dietary instruction Follow activity as directed Keep your appointments as scheduled Take your immunizations and boosters as scheduled If your symptoms worsen call your PCP, if no PCP go to Urgent Care Center or Emergency Room Smoking is Dangerous to Your Health. Avoid second hand smoke Call the 24-hour hour crisis hotline for domestic abuse at Tia Montenegro Aug 18, 2017 12:00
--- NOTE | 2017-08-18 12:00 | HHI.DCPOC ---
Discharge Care Plan Diagnosis: (1) Non-Hodgkin lymphoma (2) Pulmonary emboli (3) Hypertension Your Health Problems Are: Bleeding Tendency Shortness of Breath Goals to Promote Your Health * To prevent worsening of your condition and complications * To maintain your health at the optimal level Directions to Meet Your Goals Take your medications as prescribed Follow your dietary instruction Follow activity as directed Keep your appointments as scheduled Take your immunizations and boosters as scheduled If your symptoms worsen call your PCP, if no PCP go to Urgent Care Center or Emergency Room Smoking is Dangerous to Your Health. Avoid second hand smoke Call the 24-hour hour crisis hotline for domestic abuse at Tia Montenegro Aug 18, 2017 12:00
--- NOTE | 2017-08-18 12:00 | HHI.DCPOC ---
Discharge Care Plan Diagnosis: (1) Non-Hodgkin lymphoma (2) Pulmonary emboli (3) Hypertension Your Health Problems Are: Bleeding Tendency Shortness of Breath Goals to Promote Your Health * To prevent worsening of your condition and complications * To maintain your health at the optimal level Directions to Meet Your Goals Take your medications as prescribed Follow your dietary instruction Follow activity as directed Keep your appointments as scheduled Take your immunizations and boosters as scheduled If your symptoms worsen call your PCP, if no PCP go to Urgent Care Center or Emergency Room Smoking is Dangerous to Your Health. Avoid second hand smoke Call the 24-hour hour crisis hotline for domestic abuse at Tia Montenegro Aug 18, 2017 12:00
--- NOTE | 2017-08-18 12:06 | HHI.DS ---
Discharge Summary Admission Date Aug 12, 2017 at 08:09 Discharge Date: Aug 18, 2017 Admitting Diagnosis NHL Brief History 47y/o male with high-risk non-Hodgkin B-cell lymphoma; developed an acute PE requiring intubation with first dose of chemo; he has now completed 4 cycles of chemotherapy and remains on Coumadin for PE prevention. CBC/BMP: 08/18/17 0440 08/18/17 0440 Significant Findings Laboratory Tests Test 08/16/17 04:05 08/16/17 06:00 08/17/17 04:35 08/18/17 04:40 White Blood Count 14.2 TH/MM3 (4.0-11.0) 11.6 TH/MM3 (4.0-11.0) 11.5 TH/MM3 (4.0-11.0) Red Blood Count 3.02 MIL/MM3 (4.50-5.90) 3.02 MIL/MM3 (4.50-5.90) 2.96 MIL/MM3 (4.50-5.90) Hemoglobin 8.3 GM/DL (13.0-17.0) 8.0 GM/DL (13.0-17.0) 7.9 GM/DL (13.0-17.0) Hematocrit 25.6 % (39.0-51.0) 25.6 % (39.0-51.0) 24.9 % (39.0-51.0) Red Cell Distribution Width 17.9 % (11.6-17.2) 17.5 % (11.6-17.2) 17.5 % (11.6-17.2) Neutrophils (%) (Auto) 97.4 % (16.0-70.0) 97.5 % (16.0-70.0) 98.1 % (16.0-70.0) Lymphocytes (%) (Auto) 1.5 % (9.0-44.0) 1.3 % (9.0-44.0) 1.3 % (9.0-44.0) Neutrophils # (Auto) 13.9 TH/MM3 (1.8-7.7) 11.3 TH/MM3 (1.8-7.7) 11.3 TH/MM3 (1.8-7.7) Lymphocytes # (Auto) 0.2 TH/MM3 (1.0-4.8) 0.2 TH/MM3 (1.0-4.8) 0.2 TH/MM3 (1.0-4.8) Creatinine 0.48 MG/DL (0.60-1.30) 0.43 MG/DL (0.60-1.30) 0.46 MG/DL (0.60-1.30) Random Glucose 107 MG/DL (74-106) 122 MG/DL (74-106) Total Protein 5.8 GM/DL (6.4-8.2) 5.6 GM/DL (6.4-8.2) 5.2 GM/DL (6.4-8.2) Albumin 2.3 GM/DL (3.4-5.0) 2.2 GM/DL (3.4-5.0) 2.1 GM/DL (3.4-5.0) Calcium Level 8.2 MG/DL (8.5-10.1) 8.1 MG/DL (8.5-10.1) 8.2 MG/DL (8.5-10.1) Aspartate Amino Transf (AST/SGOT) 6 U/L (15-37) 5 U/L (15-37) 5 U/L (15-37) Alanine Aminotransferase (ALT/SGPT) 9 U/L (12-78) 11 U/L (12-78) 10 U/L (12-78) Total Bilirubin 0.1 MG/DL (0.2-1.0) 0.1 MG/DL (0.2-1.0) Prothrombin Time 42.9 SEC (9.8-11.6) 44.4 SEC (9.8-11.6) 32.9 SEC (9.8-11.6) Mean Corpuscular Hemoglobin 26.6 PG (27.0-34.0) 26.7 PG (27.0-34.0) Mean Corpuscular Hemoglobin Concent 31.4 % (32.0-36.0) 31.7 % (32.0-36.0) Potassium Level 3.2 MEQ/L (3.5-5.1) PE at Discharge See progress note for 08/18. Hospital Course The pt was admitted for cycle #4 chemotherapy. Rituxan portion given as outpatient and the pt was admitted for additional chemo to monitor closely for tumor lysis syndrome. He has tolerated this cycle very well and d/t the low trend of his hemoglobin we will give 1 unit inpatient today prior to discharge. Followup in clinic tomorrow. Pt Condition on Discharge: Good Discharge Disposition: Discharge Home Discharge Instructions DIET: Follow Instructions for: As Tolerated, No Restrictions Activities you can perform: Regular-No Restrictions Tia Montenegro Aug 18, 2017 12:06
[2017-08-18] MEDS ORDERED: WARFARIN SOD 5 MG TAB PO SCH ×2 (16:00)
== END 2017-08-18 18:44 | disposition home or self-care (01) | DRG 847 ==
LOC: HCIS 08:09 → HCIN 08-14 15:00
PROVIDERS: ADMIT Internal Medicine Hematology & Oncology; ATTEND Internal Medicine Hematology & Oncology
PROC: 3E03305 Introduction of Other Antineoplastic into Peripheral Vein, Percutaneous Approach (ICD-10-PCS; principal; 2017-08-12)
PROC: 30233N1 Transfusion of Nonautologous Red Blood Cells into Peripheral Vein, Percutaneous Approach (ICD-10-PCS; 2017-08-18)
DX: Z51.11 Encounter for antineoplastic chemotherapy (principal); C83.38 Diffuse large B-cell lymphoma, lymph nodes of multiple sites; I10 Essential (primary) hypertension; Z86.711 Personal history of pulmonary embolism; Z87.891 Personal history of nicotine dependence; Z79.01 Long term (current) use of anticoagulants; I08.0 Rheumatic disorders of both mitral and aortic valves; R79.1 Abnormal coagulation profile
CPT/HCPCS: 36430; 80053; 83615; 83735; 84100; 84550; 85025; 85610; 86850; 86900; 86901; 86920; 93005; 93306; 96413; 96415; J1626; J1642; J1650; J7030; J7040; J7050; J7512; J9000; J9070; J9181; J9310; J9370; P9016; Q0163; Q0167

== ENCOUNTER 2017-09-06 09:13 | Inpatient (IN) | payer MEDICAID ==
[~2017-09-06] VITALS: Ht 188 cm; Wt 60.4 kg
[2017-09-06] VITALS (14 sets, daily range): BP systolic 93–114; BP diastolic 51–63; PULSE 103–124; RESP 18–22; TEMP 98.9–102.5; O2SAT 91–100
[~2017-09-06 09:13] MED LIST changes: -COUM4TAB PO; +COUM5TAB PO
[2017-09-06] MEDS ORDERED: SODIUM CHLOR 0.9% 1000 ML INJ 1,000 ML IV ONE ×3 (09:29→15:00)
[2017-09-06] MEDS ORDERED: SODIUM CHLOR 0.9% 1000 ML INJ 100 ML IV ONE (09:29)
[2017-09-06] MEDS ORDERED: ONDANSETRON HCL 4 MG/2 ML VIAL IV PUSH ONE (09:30)
--- NOTE | 2017-09-06 09:53 | PD ---
HPI . Vomiting Chief Complaint: General Weakness Time Seen by Provider: 09:27 Travel History International Travel<30 days: No Contact w/Intl Traveler<30days: No Traveled to known affect area: No History of Present Illness HPI This patient has lymphoma and is currently receiving chemotherapy. He presents to us complaining with nausea, vomiting and weakness. Onset of symptoms was approximately a week ago. He denies pain to me. He reports emesis approximately 5 times per day. No diarrhea. No fever. No cough or shortness of breath. His oncologist is Dr. Connelly. His primary care provider is Tia Montenegro NP [facility] Past Medical History Atrial Fibrillation: Yes Autoimmune Disease: No Cancer: Yes (NONHODGKINS LYMPHOMA ) Cardiovascular Problems: No Chemotherapy: Yes Endocrine: No Gastrointestinal Disorders: No Genitourinary: No Immune Disorder: No Implanted Vascular Access Dvce: Yes Musculoskeletal: No Neurologic: No Psychiatric: No Reproductive: No Respiratory: No Immunizations Current: Yes Radiation Therapy: No ?: Not Past Surgical History Other Surgery: Yes Social History Alcohol Use: No (quit 02/2017) Tobacco Use: No (quit 02/2017) Substance Use: No (tried weed) Allergies-Medications (Allergen,Severity, Reaction): Coded Allergies: Milk Containing Products (Verified Allergy, Mild, diarrhea, 06/11/17) Reported Meds & Prescriptions Reported Meds & Active Scripts Active Dronabinol 5 Mg Cap 5 Mg PO BID@11,16 Nifedipine ER (Nifedipine) 90 Mg Tab 90 Mg PO DAILY Reported Coumadin (Warfarin) 5 Mg Tab 5 Mg PO DAILY Review of Systems Except as stated in HPI: all other systems reviewed are Neg Gastrointestinal: Positive: Nausea, Vomiting Neurologic: Positive: Weakness Physical Exam Narrative GENERAL: Chronically ill-appearing man. Cachectic. SKIN: warm/dry. The skin on his back is flaky. HEAD: Normocephalic. Atraumatic. EYES: Pupils equal and round. No scleral icterus. No injection or drainage. Conjunctiva pale. ENT: No nasal bleeding or discharge. Mucous membranes dry. Pale. NECK: Trachea midline. Full range of motion without pain.. CARDIOVASCULAR: Regular rate and rhythm. Heart sounds are normal. RESPIRATORY: No accessory muscle use. Clear to auscultation. Breath sounds equal bilaterally. GASTROINTESTINAL: Abdomen soft. Nontender. Bowel sounds present. Nondistended. RECTAL: brown stool. no palpable mass. : Deferred MUSCULOSKELETAL: No obvious deformities. NEUROLOGICAL: Awake and alert. No obvious cranial nerve deficits. Motor grossly within normal limits. Normal speech. PSYCHIATRIC: Appropriate mood and affect; insight and judgment normal. Data Data Last Documented VS Vital Signs Date Time Temp Pulse Resp B/P (MAP) Pulse Ox O2 Delivery O2 Flow Rate FiO2 09/06/17 12:41 103 20 114/60 (78) 98 Nasal Cannula 2.00 09/06/17 09:34 99.9 Orders Orders Sepsis Workup Initiated (09/06/17 ) Complete Blood Count With Diff (09/06/17 09:29) Comprehensive Metabolic Panel (09/06/17 09:29) Lactic Acid Sepsis Protocol (09/06/17 09:29) Magnesium (Mg) (09/06/17 09:29) Lipase (09/06/17 09:29) Urinalysis - C+S If Indicated (09/06/17 09:29) Blood Culture (09/06/17 09:29) Blood Glucose (09/06/17 09:29) Iv Access Insert/Monitor (09/06/17 09:29) Sodium Chlor 0.9% 1000 Ml Inj (Ns 1000 M (09/06/17 09:29) Sodium Chlor 0.9% 1000 Ml Inj (Ns 1000 M (09/06/17 09:29) Sodium Chlor 0.9% 1000 Ml Inj (Ns 1000 M (09/06/17 09:29) Ondansetron Inj (Zofran Inj) (09/06/17 09:30) Red Blood Cells (Rbc) (09/06/17 11:03) Blood Product Administration (09/06/17 11:03) Sodium Chlor 0.9% 250 Ml Inj (Ns 250 Ml (09/06/17 11:15) Type And Screen (09/06/17 11:03) Urine Culture (09/06/17 11:40) Admit Order (Ed Use Only) (09/06/17 ) Labs Laboratory Tests Test 09/06/17 10:00 09/06/17 11:40 White Blood Count 20.7 TH/MM3 Red Blood Count 2.51 MIL/MM3 Hemoglobin 6.6 GM/DL Hematocrit 19.6 % Mean Corpuscular Volume 78.3 FL Mean Corpuscular Hemoglobin 26.3 PG Mean Corpuscular Hemoglobin Concent 33.6 % Red Cell Distribution Width 19.5 % Platelet Count 254 TH/MM3 Mean Platelet Volume 8.2 FL Neutrophils (%) (Auto) 95.7 % Lymphocytes (%) (Auto) 1.4 % Monocytes (%) (Auto) 2.6 % Eosinophils (%) (Auto) 0.0 % Basophils (%) (Auto) 0.3 % Neutrophils # (Auto) 19.8 TH/MM3 Lymphocytes # (Auto) 0.3 TH/MM3 Monocytes # (Auto) 0.5 TH/MM3 Eosinophils # (Auto) 0.0 TH/MM3 Basophils # (Auto) 0.1 TH/MM3 CBC Comment DIFF FINAL Differential Comment Blood Urea Nitrogen 6 MG/DL Creatinine 0.68 MG/DL Random Glucose 106 MG/DL Total Protein 5.7 GM/DL Albumin 1.9 GM/DL Calcium Level 8.0 MG/DL Magnesium Level 1.2 MG/DL Alkaline Phosphatase 86 U/L Aspartate Amino Transf (AST/SGOT) 10 U/L Alanine Aminotransferase (ALT/SGPT) 9 U/L Total Bilirubin 0.6 MG/DL Sodium Level 134 MEQ/L Potassium Level 2.7 MEQ/L Chloride Level 98 MEQ/L Carbon Dioxide Level 24.6 MEQ/L Anion Gap 11 MEQ/L Estimat Glomerular Filtration Rate 150 ML/MIN Lactic Acid Level 1.1 mmol/L Lipase 39 U/L Urine Color YELLOW Urine Turbidity CLEAR Urine pH 7.0 Urine Specific [place] 1.006 Urine Protein 30 mg/dL Urine Glucose (UA) NEG mg/dL Urine Ketones NEG mg/dL Urine Occult Blood NEG Urine Nitrite NEG Urine Bilirubin NEG Urine Urobilinogen LESS THAN 2.0 MG/DL Urine Leukocyte Esterase NEG Urine RBC LESS THAN 1 /hpf Urine WBC 7 /hpf Urine Squamous Epithelial Cells <1 /hpf Microscopic Urinalysis Comment CATH-CULTURE IND MDM Medical Decision Making Medical Screen Exam Complete: Yes Emergency Medical Condition: Yes Medical Record Reviewed: Yes Differential Diagnosis Differential diagnosis includes but is not limited to viral gastritis, food poisoning, pancreatitis, pneumonia, hepatitis, acute coronary syndrome, Narrative Course This patient presents with vomiting and weakness for the last week. He is a lymphoma patient on chemotherapy. He looks very ill. CBC Diagram 09/06/17 10:00 I have ordered 4 units of packed red blood cells to be cross matched with 2 to be transfused. LA 1.1 BMP Diagram 09/06/17 10:00 Total Protein 5.7 L, Albumin 1.9 L, Calcium Level 8.0 L, Magnesium Level 1.2 L, Alkaline Phosphatase 86, Aspartate Amino Transf (AST/SGOT) 10 L, Alanine Aminotransferase (ALT/SGPT) 9 L, Total Bilirubin 0.6 HemaPrompt Point of Care Internal Pos. & Neg. Controls: Passed Fecal Specimen Occult Blood: Negative Physician Communication Physician Communication Dr. Zavala Diagnosis Primary Impression: Anemia Qualified Codes: D64.9 - Anemia, unspecified Additional Impression: Hypokalemia Admitting Information Admitting Physician Requests: Admit Condition: Stable Indira Burgess MD Sep 06, 2017 09:53
[2017-09-06 10:35] LABS: AUTOMATED NEUTROPHIL # 19.8 TH/MM3 (1.8-7.7); BASOPHIL # 0.1 TH/MM3 (0-0.2); BASOPHIL % 0.3 % (0.0-2.0); LYMPH % 1.4 % (9.0-44.0); LYMPHOCYTE # 0.3 TH/MM3 (1.0-4.8); MEAN CELL VOLUME 78.3 FL (80.0-100.0); MEAN CORPUSCULAR HEMOGLOBIN 26.3 PG (27.0-34.0); MEAN CORPUSCULAR HGB CONC 33.6 % (32.0-36.0); MEAN PLATELET VOLUME 8.2 FL (7.0-11.0); MONO % 2.6 % (0.0-8.0); MONOCYTE # 0.5 TH/MM3 (0-0.9); NEUT % 95.7 % (16.0-70.0); PLATELET COUNT 254 TH/MM3 (150-450); RED BLOOD COUNT 2.51 MIL/MM3 (4.50-5.90); RED CELL DISTRIBUTION WIDTH 19.5 % (11.6-17.2); WHITE BLOOD COUNT 20.7 TH/MM3 (4.0-11.0)
[2017-09-06 10:42] LABS: HEMATOCRIT 19.6 % (39.0-51.0); HEMOGLOBIN 6.6 GM/DL (13.0-17.0)
[2017-09-06 11:06] LABS: ALBUMIN 1.9 GM/DL (3.4-5.0); ALKALINE PHOSPHATASE 86 U/L (45-117); ALT (GPT) 9 U/L (12-78); AST (GOT) 10 U/L (15-37); BICARBONATE 24.6 MEQ/L (21.0-32.0); BLOOD UREA NITROGEN 6 MG/DL (7-18); CHLORIDE 98 MEQ/L (98-107); CREATININE 0.68 MG/DL (0.60-1.30); GLOMERULAR FILTRATION RATE 150 ML/MIN (>89); GLUCOSE,RANDOM 106 MG/DL (74-106); LIPASE 39 U/L (73-393); MAGNESIUM 1.2 MG/DL (1.5-2.5); SODIUM (NA) 134 MEQ/L (136-145); TOTAL BILIRUBIN ADULT 0.6 MG/DL (0.2-1.0); TOTAL PROTEIN 5.7 GM/DL (6.4-8.2)
[2017-09-06] MEDS ORDERED: SODIUM CHLOR 0.9% 250 ML INJ 250 ML IV ONE (11:15)
[2017-09-06 12:13] LABS: BILIRUBIN, URINE NEG (NEG); BLOOD, URINE NEG (NEG); GLUCOSE,URINE NEG (NEG); KETONE, URINE NEG (NEG); NITRITE,URINE NEG (NEG); SQUAMOUS EPITHELIAL CELL URINE <1 /hpf (0-5); URINE COLOR YELLOW (YELLW/STRAW); URINE LEUKOCYTE ESTERASE NEG (NEG)
[2017-09-06] MEDS ORDERED: BISACODYL 10 MG SUPP RECTAL PRN (13:00)
[2017-09-06] MEDS ORDERED: NALOXONE HCL 0.4 MG/ML AMP IV PUSH PRN (13:00)
[2017-09-06] MEDS ORDERED: TEMAZEPAM 15 MG CAP PO PRN (13:00)
[2017-09-06] MEDS ORDERED: SODIUM CHLORIDE 0.9% FLUSH 10 ML FLUSH IV FLUSH PRN (13:00)
[2017-09-06] MEDS ORDERED: MAGNESIUM HYDROXIDE SUSP 30 ML CUP PO PRN (13:00)
[2017-09-06] MEDS ORDERED: LACTULOSE SYRUP 20 GM/30 ML CUP PO PRN (13:00)
[2017-09-06] MEDS ORDERED: ACETAMINOPHEN 325 MG TAB PO PRN (13:00)
[2017-09-06] MEDS ORDERED: SENNOSIDES 8.6 MG TAB PO PRN (13:00)
[2017-09-06] MEDS ORDERED: ONDANSETRON HCL 4 MG/2 ML VIAL IVP PRN (13:00)
[2017-09-06] MEDS ORDERED: METOCLOPRAMIDE HCL 10 MG/2 ML VIAL IV PUSH PRN (13:00)
[2017-09-06 13:31] LABS: % SATURATION IRON PROFILE 16.2 % (20-50); IRON (FE) 17 MCG/DL (65-175); LDH SERUM 196 U/L (87-241); TOTAL IRON BINDING CAPACITY 105 MCG/DL (250-450)
--- NOTE | 2017-09-06 13:31 | HHI.HP ---
[facility] Primary Care Physician Admission Diagnosis anemia Diagnoses: (1) Non-Hodgkin lymphoma Diagnosis: Principal (2) Anemia Diagnosis: Secondary (3) Poor appetite Diagnosis: Secondary Chief Complaint: Generalized weakness Travel History International Travel<30 Days: No Contact w/Intl Traveler <30 Da: No Traveled to Known Affected Are: No Sepsis Criteria SIRS Criteria (2 or more): Temp > 100.9 or < 96.8, Heart rate over 90, RR > 20 or PaCO2 < 32, WBC > 63625, < 4000 or > 10% bands History of Present Illness Written by Nancy Brunner, acting as scribe for Dr. Zavala on 09/06/17 at 1325. Mr. Werner is a 47-year-old male patient with a known medical history of non- Hodgkin B-cell lymphoma, hypertension and history of PE who presented to the ED with complaints of generalized weakness, nausea, vomiting and cough. Patient states he has been feeling increasingly weak, unable to tolerate PO intake due to nausea and vomiting and cough x 1 week. Admits to dark stools, no presence of hematochezia. 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 Connelly. He does admit to receiving chemotherapy 2 weeks ago with a scheduled dose this week. Denies any recent chest pain, palpitations, diarrhea, hematuria or abdominal pain. Denies any dysuria. Hemoglobin 6.6 on presentation to ED, 2 units PRBC have been ordered. Acutely febrile, temp 102.5. WBC 20.9. BC and urine cultures pending. CXR pending. Status post 3 L NS bolus in ED. Review of Systems Constitutional: COMPLAINS OF: Fever, Chills Respiratory: COMPLAINS OF: Cough, Shortness of breath Cardiovascular: DENIES: Chest pain, Syncope Gastrointestinal: COMPLAINS OF: Black stools, Nausea, Vomiting, DENIES: Abdominal pain, Constipation, Diarrhea Except as stated in HPI: all other systems reviewed are Neg Past Family Social History Past Medical History Hypertension Diffuse large B cell lymphoma stage III Pulmonary embolism Renal failure Past Surgical History Bone marrow aspiration - 04/2017 Bone marrow biopsy - 04/[address] resection Port placement Reported Medications Active Dronabinol 5 Mg Cap 5 Mg PO BID@,16 Nifedipine ER (Nifedipine) 90 Mg Tab 90 Mg PO DAILY Reported Coumadin (Warfarin) 5 Mg Tab 5 Mg PO DAILY Allergies: Coded Allergies: Milk Containing Products (Verified Allergy, Mild, diarrhea, 06/11/17) Active Ordered Medications Current Medications Medications (Trade) Dose Ordered Sig/Shyla Route Start Time Stop Time Status Last Admin Sodium Chloride 250 ml @ 15 mls/hr ONCE ONCE IV 09/06/17 11:15 09/07/17 03:54 09/06/17 14:24 Sodium Chloride 1,000 ml @ 100 mls/hr Q10H IV 09/06/17 13:00 (NS Flush) 2 ml UNSCH PRN IV FLUSH 09/06/17 13:00 (NS Flush) 2 ml BID IV FLUSH 09/06/17 21:00 (Tylenol) 650 mg Q4H PRN PO 09/06/17 13:00 (Zofran Inj) 4 mg Q6H PRN IVP 09/06/17 13:00 (Reglan Inj) 5 mg Q6H PRN IV PUSH 09/06/17 13:00 (Restoril) 15 mg HS PRN PO 09/06/17 13:00 (Narcan Inj) 0.4 mg UNSCH PRN IV PUSH 09/06/17 13:00 (Milk Of Magnesia Liq) 30 ml Q12H PRN PO 09/06/17 13:00 (Senokot) 17.2 mg Q12H PRN PO 09/06/17 13:00 (Dulcolax Supp) 10 mg DAILY PRN RECTAL 09/06/17 13:00 (Lactulose Liq) 30 ml DAILY PRN PO 09/06/17 13:00 Magnesium Sulfate/ Dextrose 100 ml @ 100 mls/hr Q1H IV 09/06/17 14:00 09/06/17 15:59 Magnesium Sulfate/ Dextrose 100 ml @ 100 mls/hr Q1H IV 09/06/17 19:00 09/06/17 20:59 Potassium Chloride 100 ml @ 50 mls/hr Q2H IV 09/06/17 14:00 09/06/17 17:59 09/06/17 14:04 Potassium Chloride 100 ml @ 50 mls/hr Q2H IV 09/06/17 20:00 09/06/17 23:59 Family History Paternal medical history significant for cancer. Mother is well. Social History Admits to quitting cigarette smoking 3 years ago. Denies any alcohol use. Denies any illicit drug use. Physical Exam Vital Signs Vital Signs Date Time Temp Pulse Resp B/P (MAP) Pulse Ox O2 Delivery O2 Flow Rate FiO2 09/06/17 12:41 103 20 114/60 (78) 98 Nasal Cannula 2.00 09/06/17 10:28 117 20 103/51 (68) 98 Nasal Cannula 2.00 09/06/17 09:34 99.9 124 22 96/63 (74) 98 Nasal Cannula 2.00 09/06/17 09:30 98.9 124 22 96/63 (74) 92 Physical Exam GENERAL: This is a well-developed, thin appearing male patient, lying in bed in no apparent distress. SKIN: No rashes, ecchymoses or lesions. Cool and dry. HEENT: Atraumatic. Normocephalic. Pupils equal round and reactive. Extraocular motions intact. No scleral icterus. No injection or drainage. Nose without bleeding. Throat without erythema, tonsillar hypertrophy or exudate. Uvula midline. Airway patent. NECK: Trachea midline. No JVD. Supple. CARDIOVASCULAR: Regular rate and rhythm without murmurs, gallops, or rubs. RESPIRATORY: Clear to auscultation. Breath sounds equal bilaterally. No wheezes , rales, or rhonchi. GASTROINTESTINAL: Abdomen soft, non-tender, nondistended. No guarding. MUSCULOSKELETAL: Extremities without clubbing, cyanosis, or edema. No joint tenderness, effusion, or edema noted. NEUROLOGICAL: Awake and alert. Cranial nerves II through XII intact. Motor and sensory grossly within normal limits. Five out of 5 muscle strength in all muscle groups. Normal speech. Laboratory Laboratory Tests Test 09/06/17 10:00 09/06/17 11:40 White Blood Count 20.7 Red Blood Count 2.51 Hemoglobin 6.6 Hematocrit 19.6 Mean Corpuscular Volume 78.3 Mean Corpuscular Hemoglobin 26.3 Mean Corpuscular Hemoglobin Concent 33.6 Red Cell Distribution Width 19.5 Platelet Count 254 Mean Platelet Volume 8.2 Neutrophils (%) (Auto) 95.7 Lymphocytes (%) (Auto) 1.4 Monocytes (%) (Auto) 2.6 Eosinophils (%) (Auto) 0.0 Basophils (%) (Auto) 0.3 Neutrophils # (Auto) 19.8 Lymphocytes # (Auto) 0.3 Monocytes # (Auto) 0.5 Eosinophils # (Auto) 0.0 Basophils # (Auto) 0.1 CBC Comment DIFF FINAL Differential Comment Blood Urea Nitrogen 6 Creatinine 0.68 Random Glucose 106 Total Protein 5.7 Albumin 1.9 Calcium Level 8.0 Magnesium Level 1.2 Alkaline Phosphatase 86 Aspartate Amino Transf (AST/SGOT) 10 Alanine Aminotransferase (ALT/SGPT) 9 Total Bilirubin 0.6 Sodium Level 134 Potassium Level 2.7 Chloride Level 98 Carbon Dioxide Level 24.6 Anion Gap 11 Estimat Glomerular Filtration Rate 150 Lactic Acid Level 1.1 Lipase 39 Urine Color YELLOW Urine Turbidity CLEAR Urine pH 7.0 Urine Specific [place] 1.006 Urine Protein 30 Urine Glucose (UA) NEG Urine Ketones NEG Urine Occult Blood NEG Urine Nitrite NEG Urine Bilirubin NEG Urine Urobilinogen LESS THAN 2.0 Urine Leukocyte Esterase NEG Urine RBC LESS THAN 1 Urine WBC 7 Urine Squamous Epithelial Cells <1 Microscopic Urinalysis Comment CATH-CULTURE IND Date/Time Source Procedure Growth Status 09/06/17 10:05 Blood Peripheral Aerobic Blood Culture Pending Received 09/06/17 10:05 Blood Peripheral Anaerobic Blood Culture Pending Received 09/06/17 11:40 Urine Catheterized Urine Urine Culture Pending Received Result Diagram: 09/06/17 1000 09/06/17 1000 Septic Shock Reassessment Heart: Regular rate and rhythm Lungs: Clear Skin: Cold Peripheral Pulses: Bounding Right Radial Bounding Left Radial Bounding Right Dorsalis Pedis Bounding Left Dorsalis Pedis Capillary Refill: Brisk, <2 seconds Caprini VTE Risk Assessment Caprini VTE Risk Assessment: Mod/High Risk (score >= 2) Caprini Risk Assessment Model Point Value = 1 Point Value = 2 Point Value = 3 Point Value = 5 Age 41-60 Minor surgery BMI > 25 kg/m2 Swollen legs Varicose veins or History of unexplained or recurrent spontaneous Oral contraceptives or hormone replacement Sepsis (< 1 month) Serious lung disease, including pneumonia (< 1 month) Abnormal pulmonary function Acute myocardial infarction Congestive heart failure (< 1 month) History of inflammatory bowel disease Medical patient at bed rest Age 61-74 Arthroscopic surgery Major open surgery (> 45 min) Laparoscopic surgery (> 45 min) Malignancy Confined to bed (> 72 hours) Immobilizing plaster cast Central venous access Age >= 75 History of VTE Family history of VTE Factor V Leiden Prothrombin [id number] Lupus anticoagulant Anticardiolipin antibodies Elevated serum homocysteine Heparin-induced thrombocytopenia Other congenital or acquired thrombophilia Stroke (< 1 month) Elective arthroplasty Hip, pelvis, or leg fracture Acute spinal cord injury (< 1 month) Prophylaxis Regimen Total Risk Factor Score Risk Level Prophylaxis Regimen 0-1 Low Early ambulation 2 Moderate Order ONE of the following: *Sequential Compression Device (SCD) *Heparin 5000 units SQ BID 3-4 Higher Order ONE of the following medications: *Heparin 5000 units SQ TID *Enoxaparin/Lovenox 40 mg SQ daily (WT < 150 kg, CrCl > 30 mL/min) *Enoxaparin/Lovenox 30 mg SQ daily (WT < 150 kg, CrCl > 10-29 mL/min) *Enoxaparin/Lovenox 30 mg SQ BID (WT < 150 kg, CrCl > 30 mL/min) AND/OR *Sequential Compression Device (SCD) 5 or more Highest Order ONE of the following medications: *Heparin 5000 units SQ TID (Preferred with Epidurals) *Enoxaparin/Lovenox 40 mg SQ daily (WT < 150 kg, CrCl > 30 mL/min) *Enoxaparin/Lovenox 30 mg SQ daily (WT < 150 kg, CrCl > 10-29 mL/min) *Enoxaparin/Lovenox 30 mg SQ BID (WT < 150 kg, CrCl > 30 mL/min) AND *Sequential Compression Device (SCD) Assessment and Plan Assessment and Plan Mr. Werner is a 47-year-old male patient with a known medical history of non- Hodgkin B-cell lymphoma, HTN and history of PE who presented to the ED with complaints of generalized weakness, nausea, vomiting and cough x 1 week. Hemoglobin 6.6 on presentation to ED, 2 units PRBC have been ordered. Acutely febrile, temp 102.5. WBC 20.9. BC and urine cultures pending. CXR pending. Status post 3 L NS bolus in ED. 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 - Received Cytoxan and CHOP (cyclophosphamide, doxorubicin, vincristine and prednisone) - Subsequently, also received Rituxan and EPOCH (cyclophosphamide, doxorubicin, etoposide, vincristine, prednisone) - Last chemotherapy was 2 weeks ago. Follow with Dr. Connelly in the outpatient setting. - Haptoglobin 617. LDH 196. Iron level 17, TIBC 105, ferritin 2200. - Oncology consulted, appreciate further recommendations and input. Sepsis (presence of leukocytosis with mild bandemia, fever, tachycardia and tachypnea) suspect secondary to immunosuppression from chemotherapy vs cough vs PNA - WBC 20.7, temp 102.5, HR 124, RR 22. Lactic acid 1.1. - Status post 3 L NS bolus in ED. Continue on maintenance IVF NS @ 100 ml/ hr. - CXR shows bilateral infiltrates CT Chest shows bilateral infiltrates as well. CXR, CT chest reviewed by me on 09/06/2017. - Supplemental O2 to keep sats > 92%. - Blood cultures and urine culture ordered and pending. - Heme/onc started patient on Cefepime and Vancomycin. Will add Levaquin 750mg IV Q24hrs for atypical coverage. - Will obtain ID consultation. Microcytic hypochromic anemia: Hemoglobin 6.6/Hematocrit 19.6 on presentation. Hemoccult negative. 2 units PRBC ordered and infusing. Follow H&H trends. Monitor for any signs of active bleeding. Hypokalemia: K 2.7 on presentation. Total of 80 meq IV replacement ordered. Recheck BMP in am. Replete as needed. Follow. Hypomagnesemia: 1.2 on presentation. Total of 4 g IV replacement ordered. Recheck BMP in am. Replete as needed. Follow. Hypertension, chronic: BP labile. Hold Nifedipine for now. Monitor BP trend closely. History of Pulmonary embolism - Had massive PE requiring tPA in April 2017. Currently on Warfarin at home. Will hold for now due to low H & H. Supratherapeutic INR due to Warfarin - No active bleeding. Will hold Warfarin and give Vitamin K 2.5mg Once. DVT Prophylaxis: SCDs. Will hold chemical prophylaxis due to low H&H. Continue to monitor. Physician Certification 2 Midnight Certification Type: Admission for Inpatient Services Order for Inpatient Services The services are ordered in accordance with Medicare regulations or non- Medicare payer requirements, as applicable. In the case of services not specified as inpatient-only, they are appropriately provided as inpatient services in accordance with the 2-midnight benchmark. Estimated LOS (days): 2 2 days is the estimated time the patient will need to remain in the hospital, assuming treatment plan goals are met and no additional complications. Post-Hospital Plan: Home Problem Qualifiers (1) Non-Hodgkin lymphoma: Qualified Codes: C83.38 - Diffuse large b-cell lymphoma, lymph nodes of multiple sites (2) Anemia: Qualified Codes: D64.9 - Anemia, unspecified Zulma Zavala DO Sep 06, 2017 13:31 Nancy Brunner Sep 06, 2017 14:56
[2017-09-06 14:00] LABS: FERRITIN 2200 NG/ML (26-388)
[2017-09-06] MEDS: POTASSIUM CHLOR 20 MEQ PREMIX 100 ML IV SCH ×3 (14:04→22:14)
[2017-09-06] MEDS ORDERED: RESP: ALBUTEROL 2.5 MG/IPRATROPIUM 0.5 MG NEB (PRN) NEB (15:00)
[2017-09-06] MEDS ORDERED: VANCOMYCIN INJ 1,000 MG in SODIUM CHLOR 0.9% 250 ML INJ 250 ML IV SCH (15:00)
--- NOTE | 2017-09-06 15:15 | RADRPT ---
EXAM DATE/TIME: 09/06/2017 14:57 [facility] COMPARISON: CHEST SINGLE AP, June 10, 2017, 13:04. INDICATIONS : Fever. Anemia. MEDICAL HISTORY : Lymphoma. Pancreatitis. SURGICAL HISTORY : Port placement. ENCOUNTER: Initial ACUITY: 1 day PAIN SCORE: 0/10 LOCATION: Bilateral chest FINDINGS: Patchy interstitial infiltrates in the left lower lung without evidence of consolidation. The right lung is clear. The heart is normal size. [id number] catheter tip projects in the right atrium. Both hemidiaphragms are well delineated. Normal heart size. CONCLUSION: Patchy interstitial infiltrates left lower lung. The lungs are otherwise clear. Bryon Evans MD on September 06, 2017 at 15:13 Board Certified Radiologist. This report was verified electronically.
[2017-09-06 15:18] LABS: PROTHROMBIN TIME - PATIENT 74.4 SEC (9.8-11.6)
[2017-09-06 15:21] LABS: INTERNATIONAL NORMALIZED RATIO 6.2 RATIO
[2017-09-06] MEDS ORDERED: PHYTONADIONE 5 MG TAB PO ONE (15:45)
[2017-09-06] MEDS: SODIUM CHLOR 0.9% 1000 ML INJ 1,000 ML IV SCH ×2 (15:49→23:00)
[2017-09-06] MEDS: MAGNESIUM SULFATE 1 GM PREMIX 100 ML IV SCH ×4 (15:49→20:00)
--- NOTE | 2017-09-06 15:51 | MB ---
cc: MALINA WHITAKER MD DATE OF CONSULTATION: 09/06/2017. REASON FOR CONSULTATION: Patient with a diagnosis of high-grade diffuse large B-cell lymphoma; associated with mutations involving the C-myc rearrangement and the BCL-2 and BCL-6 mutations. He has been on high-dose systemic chemotherapy since the summer; initially with Rituxan plus CHOP followed by R-EPOCH. He has received, I believe, a total of four cycles of chemotherapy. REQUESTING PHYSICIAN: Consult requested by the emergency department physicians. CHIEF COMPLAINT: 1. One week history of nausea and vomiting. 2. Generalized weakness and fatigue. 3. Fevers and chills. 4. Two episodes of tarry black stools. HISTORY OF PRESENT ILLNESS: Mr. Werner is a 47-year-old male who is well-known to the oncology service. This gentleman presented in the summer to the hospital with abdominal pain, he was found to have extensive intra-abdominal lymphadenopathy as well as mediastinal and cervical lymphadenopathy. He underwent an excisional biopsy and was initiated on systemic therapy initially with R-CHOP because he was at the time septic and also had renal failure. He required dialysis for a brief period time. As he recovered, his treatment was intensified to R-EPOCH and has to-date completed a total of four cycles of EPOCH. His care has been coordinated by my associate, Dr. Connelly. The patient was scheduled to undergo additional chemotherapy; his fifth cycle starting this week. He however has been generally unwell for the past one week. His mother called our service earlier this morning to report this patient's symptoms. He was advised to come into the emergency department. In the emergency room, he was noted to have multiple metabolic abnormalities. The patient's potassium level is noted to be 2.7. He was noted to have low magnesium at 1.2 and was also noted to have severe anemia with a hemoglobin of 6.6 grams/dL and hematocrit of 19.6%. Clinically he was very dehydrated. He was aggressively hydrated with normal saline (3 liters) and has been initiated on red cell transfusions as well. While in the emergency department, he spiked a temperature of 102.5 degrees Fahrenheit and has been initiated on broad-spectrum antibiotics. The antibiotics include Cefepime and Vancomycin. Blood cultures and urine cultures have been submitted. PAST MEDICAL HISTORY: 1. 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 2. History of acute renal failure; now recovered. 3. History of pulmonary embolism currently on anticoagulation. 4. Hypertension. 5. Protein-calorie malnutrition. 6. Chemotherapy-related myelosuppression. PAST SURGICAL HISTORY: 1. Left axillary lymph node excisional biopsy. 2. Bone marrow biopsy. 3. Infusion port placement. 4. Vas-Cath insertion and then removal. FAMILY HISTORY: No oncologic diagnoses are reported. SOCIAL HISTORY: The patient reports formally smoking a pack a day, he smoked for many years before he quit in the summer of 2016. He also reports drinking alcohol up to 8 cans of beer daily, but he quit in the summer of 2016. ALLERGIES: MILK-CONTAINING PRODUCTS. REVIEW OF SYSTEMS: A thirteen point patient-completed review of systems was obtained and the following are the pertinent positives: CONSTITUTIONAL: The patient reports generalized fatigue, weakness, loss of appetite, chills and fever. He reports weight loss. HEAD, EYES, EARS, NOSE, THROAT: Denies headaches, blurry vision, he reports soreness in the throat. GI: Reports nausea, vomiting, right-sided upper abdominal pain. Denies any carlos blood in the stools but does report having had episodic black tarry stools. RESPIRATORY: Reports shortness of breath with exertion, he reports right-sided pleuritic chest pain. Denies cough or hemoptysis. CARDIOVASCULAR: Denies angina-like chest pain, PND, orthopnea, lower extremity swelling. TENT FINISHER: Denies any focal sensory motor deficits. He does feel generally weak. MUSCULOSKELETAL: The only complaint he reports is right-sided flank pain. No other complaints reported. PHYSICAL EXAMINATION: VITAL SIGNS: Temperature max of 102.5 at 02:30 p.m., heart rate ranging between 124 beats per minute and 103 beats per minute, blood pressure at presentation was 96/63 and presently as 94/57. 02 saturations are 98% on two liters nasal cannula. GENERAL PHYSICAL APPEARANCE: Mr. Werner is a middle-aged male, he is thin, chronically ill-appearing, he is laying in bed. HEAD, EYES, EARS, NOSE, THROAT: Head atraumatic, normocephalic. He has alopecia of chemotherapy. Eye exam: Extraocular muscles intact. Pupils equal, round and reactive to light and accommodation. The conjunctivae are pale. The sclerae are anicteric. ORAL EXAM: Dry mucous membranes, poor dental hygiene with loss of most of his teeth in the maxilla, his mandibular teeth especially the anterior teeth are mostly decaying. Poor dental hygiene. He has no ulcers noted along his tongue or in the oropharynx. No thrush noted. NECK EXAM: He has small lymph nodes which are palpable in the right supraclavicular lymph node chain, these lymph nodes measure about a centimeter. They are firm and fixed to the tissue below them. RESPIRATORY EXAM: Poor inspiratory effort, good air movement over the upper and middle lung zones, decreased bibasilar breath sounds, prolonged expiratory phase. CARDIOVASCULAR: Tachycardiac, regular rhythm, S1-S2. No obvious murmurs, rubs or gallops. ABDOMEN: Thin belly, soft, no obvious tenderness, no palpable organ enlargement. EXTREMITIES: No pretibial edema. No calf tenderness. MUSCULOSKELETAL: Generally decreased muscle mass, tone and strength. SKIN: Skin is noted to be dry. No ulceration noted. LABORATORY FINDINGS: Blood work dated 09/06/2017: WBC count 20.7, hemoglobin 6.6 gm/dl, hematocrit 19.6%, MCV 78.3, platelet count of 254,000, absolute neutrophil count is 19.8, absolute lymphocyte count 0.3. Haptoglobin level is elevated at 617. Chemistries: Sodium 134, potassium is 2.7, chloride 98, bicarb 24.6, BUN 6, creatinine 0.68, EGFR is 150, random glucose 106, lactic acid is 1.1, calcium is 8,, magnesium is 1.2, total bilirubin 0.6, AST 10, ALT 9, alkaline phosphatase 86, LDH is 196, albumin is 1.9, lipase is 39, total protein is 5.7. Chemistries: Percent iron saturation 16.2, iron level 17, ferritin level is 2200. ASSESSMENT: Mr. Werner is a 47-year-old male with a diagnosis of an aggressive diffuse large B-cell lymphoma, his disease is associated with CD-10 positivity, MYC rearrangement, BCL-2 and BCL-6 mutations. He presented in April of 2017 with abdominal pain and was found to have diffuse intraabdominal lymphadenopathy and in addition to that was found to have cervical, axillary and mediastinal lymphadenopathy. An excisional biopsy confirmed his diagnosis and he was initiated on systemic therapy. He initially also was septic and had acute renal failure requiring temporary dialysis. His treatment history has consisted of a single cycle of R-CHOP followed by four additional cycles of R-EPOCH with the most recent cycle of EPOCH delivered in early August of 2017. He was scheduled to receive cycle #5 EPOCH this week under Dr. Connelly's care. The patient presents to the hospital emergency department with complaints of a one week history of nausea, vomiting, inability to hold down liquids and solids, he also reports having episodic melanotic stools, fevers and chills as well. Since presentation, he has been hydrated aggressively and with hydration, his blood pressure and heart rate have both improved. He is also receiving red cell transfusion for a presenting hemoglobin of 6.6 grams/dL. He has been initiated on empiric antibiotics with Vancomycin and cefepime for his high spiking fever and blood cultures and urine cultures have been submitted. RECOMMENDATIONS: 1. High-grade diffuse large B-cell lymphoma: He was scheduled to initiate cycle #5 of chemotherapy this week. I suspect this may be put on hold until after his condition stabilizes. In particular, sepsis and infection etiology needs to be ruled out. Empiric antibiotics have been initiated. He does have a significant neutrophilia indicating likely underlying infection. I will obtain CT scans of the abdomen and pelvis to further evaluate to rule out underlying pneumonia or an intra-abdominal process. 2. Anemia: He does report melanotic stools but the stool for occult blood performed in the emergency department was negative. It is quite possible that after having had a melanotic stools, the bleeding has cleared up. Supportive transfusion was very reasonable. I anticipate that his hemoglobin and hematocrit in reality were a lot more than the presenting level due to dehydration, and with fluid hydration, there should be some anticipated hemodilution. 3. Hydrate liberally. 4. Encourage p.o. intake. The oncology service will follow along with you. MD KRYSTYNA Soares/JL /2:53 PM /3:29 PM
[2017-09-06] MEDS: CEFEPIME INJ 2,000 MG in SODIUM CHLORIDE 0.9% INJ 100 ML IV SCH ×2 (16:00→23:44)
[2017-09-06] MEDS ORDERED: IOHEXOL 350 MG/ML 10 ML VIAL (for RAD DIAG) IVCONTRAST ONE (16:08)
--- NOTE | 2017-09-06 16:37 | RADRPT ---
EXAM DATE/TIME: 09/06/2017 15:57 [facility] COMPARISON: No previous studies available for comparison. INDICATIONS : Chest pain. IV CONTRAST: 70 cc Omnipaque 350 (iohexol) IV RADIATION DOSE: 5.10 CTDIvol (mGy) MEDICAL HISTORY : Lymphoma. Cardiovascular disease SURGICAL HISTORY : None. ENCOUNTER: Initial ACUITY: 1 day PAIN SCALE: 5/10 LOCATION: Bilateral chest TECHNIQUE: Volumetric scanning of the chest was performed. Using automated exposure control and adjustment of t he mA and/or kV according to patient size, radiation dose was kept as low as reasonably achievable to obtain optimal diagnostic quality images. DICOM format image data is available electronically for review and comparison. Follow-up recommendations for detected pulmonary nodules are based at a minimum on nodule size and pa tient risk factors according to Fleischner Society Guidelines. FINDINGS: Comparison is May 02. There is still extensive mediastinal adenopathy but it has clearly decreased s kimi April. Index right paratracheal lymph nodes has decreased from 5 cm to 2.8 cm. There is patchy ai rspace consolidation in both lower lobes and in the lingula. Differential diagnosis includes bronchop neumonia. Small pleural effusions are improved from April. No filling defects seen in the central pulm onary arteries. Upper abdomen reveal some periportal edema. No acute findings. Right [id number] tip in right atrium. CONCLUSION: 1. Patchy bilateral air space consolidation in both lung bases. Differential diagnosis includes bronc hopneumonia and aspiration. Small pleural effusions improved from April. 2. Extensive mediastinal adenopathy also improved from April. Travis Ruffin MD on September 06, 2017 at 16:32 Board Certified Radiologist. This report was verified electronically.
[2017-09-06] MEDS ORDERED: PHYTONADIONE 2.5 MG/SWFI 2.5 ML ORAL SYR PO ONE (19:15)
[2017-09-06] MEDS ORDERED: LEVOFLOXACIN 750 MG PREMIX INJ 150 ML IV SCH (20:00)
[2017-09-06] MEDS: SODIUM CHLORIDE 0.9% FLUSH 10 ML FLUSH IV FLUSH SCH (23:45)
[2017-09-07] VITALS (12 sets, daily range): BP systolic 89–116; BP diastolic 47–66; PULSE 63–98; RESP 18–21; TEMP 97.7–99.7; O2SAT 97–99
[2017-09-07] MEDS: POTASSIUM CHLOR 20 MEQ PREMIX 100 ML IV SCH ×5 (01:12→16:42)
[2017-09-07] MEDS: MAGNESIUM SULFATE 1 GM PREMIX 100 ML IV SCH ×2 (01:24→02:58)
[2017-09-07 05:57] LABS: AUTOMATED NEUTROPHIL # 13.5 TH/MM3 (1.8-7.7); BASOPHIL % 0.3 % (0.0-2.0); HEMATOCRIT 32.2 % (39.0-51.0); HEMOGLOBIN 10.7 GM/DL (13.0-17.0); LYMPH % 1.2 % (9.0-44.0); LYMPHOCYTE # 0.2 TH/MM3 (1.0-4.8); MEAN CELL VOLUME 78.9 FL (80.0-100.0); MEAN CORPUSCULAR HEMOGLOBIN 26.3 PG (27.0-34.0); MEAN CORPUSCULAR HGB CONC 33.3 % (32.0-36.0); MEAN PLATELET VOLUME 8.2 FL (7.0-11.0); MONO % 3.4 % (0.0-8.0); MONOCYTE # 0.5 TH/MM3 (0-0.9); NEUT % 95.1 % (16.0-70.0); PLATELET COUNT 186 TH/MM3 (150-450); RED BLOOD COUNT 4.08 MIL/MM3 (4.50-5.90); WHITE BLOOD COUNT 14.2 TH/MM3 (4.0-11.0)
[2017-09-07 06:28] LABS: BICARBONATE 22.9 MEQ/L (21.0-32.0); CALCIUM 7.4 MG/DL (8.5-10.1); CREATININE 0.47 MG/DL (0.60-1.30)
[2017-09-07 06:47] LABS: CALCIUM-PROTEIN CORRECTED 8.7 MG/DL (8.5-10.1); TOTAL PROTEIN 4.8 GM/DL (6.4-8.2)
[2017-09-07] MEDS: CEFEPIME INJ 2,000 MG in SODIUM CHLORIDE 0.9% INJ 100 ML IV SCH ×2 (08:14→16:14)
[2017-09-07] MEDS: SODIUM CHLORIDE 0.9% FLUSH 10 ML FLUSH IV FLUSH SCH ×2 (09:00→21:00)
--- NOTE | 2017-09-07 09:04 | PD.ONC.PN ---
Subjective Subjective Remarks Afebrile overnight. Patient resting in room. Still feels short of breath with exertion, requiring supplemental O2. + cough. denies nausea but still has no appetite. Objective Data Date Time Temp Pulse Resp B/P (MAP) Pulse Ox O2 Delivery O2 Flow Rate FiO2 09/07/17 08:09 98.1 70 18 100/53 (69) 97 09/07/17 07:53 98 Nasal Cannula 2.00 09/07/17 04:35 98.6 87 18 93/66 (75) 99 09/07/17 04:02 86 09/07/17 00:09 97.7 92 18 94/66 (75) 97 09/07/17 00:03 98 09/06/17 23:15 99 Nasal Cannula 2.00 09/06/17 20:01 109 09/06/17 19:34 102.0 111 22 103/62 99 09/06/17 16:39 100.9 105 18 98/58 91 09/06/17 16:34 100.9 107 18 98/58 98 09/06/17 15:47 108 20 93/55 (68) 100 Nasal Cannula 2.00 09/06/17 14:40 101.5 108 20 94/57 98 09/06/17 14:20 102.5 103 20 95/51 (66) 98 Nasal Cannula 2.00 09/06/17 14:15 102.5 106 20 95/51 98 09/06/17 13:45 100 Nasal Cannula 1.50 09/06/17 12:41 103 20 114/60 (78) 98 Nasal Cannula 2.00 09/06/17 10:28 117 20 103/51 (68) 98 Nasal Cannula 2.00 09/06/17 09:34 99.9 124 22 96/63 (74) 98 Nasal Cannula 2.00 09/06/17 09:30 98.9 124 22 96/63 (74) 92 09/07/17 09/07/17 09/07/17 07:00 15:00 23:00 Intake Total 1390 ml Output Total 400 ml Balance 990 ml Result Diagram: 09/07/17 0530 09/07/17 0530 Laboratory Results Laboratory Tests Test 09/06/17 10:00 09/06/17 11:40 09/06/17 14:00 09/07/17 05:30 White Blood Count 20.7 TH/MM3 14.2 TH/MM3 Red Blood Count 2.51 MIL/MM3 4.08 MIL/MM3 Hemoglobin 6.6 GM/DL 10.7 GM/DL Hematocrit 19.6 % 32.2 % Mean Corpuscular Volume 78.3 FL 78.9 FL Mean Corpuscular Hemoglobin 26.3 PG 26.3 PG Mean Corpuscular Hemoglobin Concent 33.6 % 33.3 % Red Cell Distribution Width 19.5 % 19.0 % Platelet Count 254 TH/MM3 186 TH/MM3 Mean Platelet Volume 8.2 FL 8.2 FL Neutrophils (%) (Auto) 95.7 % 95.1 % Lymphocytes (%) (Auto) 1.4 % 1.2 % Monocytes (%) (Auto) 2.6 % 3.4 % Eosinophils (%) (Auto) 0.0 % 0.0 % Basophils (%) (Auto) 0.3 % 0.3 % Neutrophils # (Auto) 19.8 TH/MM3 13.5 TH/MM3 Lymphocytes # (Auto) 0.3 TH/MM3 0.2 TH/MM3 Monocytes # (Auto) 0.5 TH/MM3 0.5 TH/MM3 Eosinophils # (Auto) 0.0 TH/MM3 0.0 TH/MM3 Basophils # (Auto) 0.1 TH/MM3 0.0 TH/MM3 CBC Comment DIFF FINAL DIFF FINAL Differential Comment Blood Smear Pathologist Review Haptoglobin 617 MG/DL Blood Urea Nitrogen 6 MG/DL 6 MG/DL Creatinine 0.68 MG/DL 0.47 MG/DL Random Glucose 106 MG/DL 139 MG/DL Total Protein 5.7 GM/DL 4.8 GM/DL Albumin 1.9 GM/DL Calcium Level 8.0 MG/DL 7.4 MG/DL Magnesium Level 1.2 MG/DL Alkaline Phosphatase 86 U/L Aspartate Amino Transf (AST/SGOT) 10 U/L Alanine Aminotransferase (ALT/SGPT) 9 U/L Total Bilirubin 0.6 MG/DL Sodium Level 134 MEQ/L 136 MEQ/L Potassium Level 2.7 MEQ/L 2.7 MEQ/L Chloride Level 98 MEQ/L 105 MEQ/L Carbon Dioxide Level 24.6 MEQ/L 22.9 MEQ/L Anion Gap 11 MEQ/L 8 MEQ/L Estimat Glomerular Filtration Rate 150 ML/MIN 230 ML/MIN Lactic Acid Level 1.1 mmol/L Iron Level 17 MCG/DL Total Iron Binding Capacity 105 MCG/DL Percent Iron Saturation 16.2 % Ferritin 2200 NG/ML Lactate Dehydrogenase 196 U/L Lipase 39 U/L Urine Color YELLOW Urine Turbidity CLEAR Urine pH 7.0 Urine Specific [place] 1.006 Urine Protein 30 mg/dL Urine Glucose (UA) NEG mg/dL Urine Ketones NEG mg/dL Urine Occult Blood NEG Urine Nitrite NEG Urine Bilirubin NEG Urine Urobilinogen LESS THAN 2.0 MG/DL Urine Leukocyte Esterase NEG Urine RBC LESS THAN 1 /hpf Urine WBC 7 /hpf Urine Squamous Epithelial Cells <1 /hpf Microscopic Urinalysis Comment CATH-CULTURE IND Prothrombin Time 74.4 SEC Prothromb Time International Ratio 6.2 RATIO Protein Corrected Calcium 8.7 MG/DL Culture Results Microbiology Date/Time Source Procedure Growth Status 09/06/17 10:05 Blood Peripheral Aerobic Blood Culture Pending Received 09/06/17 10:05 Blood Peripheral Anaerobic Blood Culture Pending Received 09/06/17 10:00 Blood Peripheral Aerobic Blood Culture Pending Received 09/06/17 10:00 Blood Peripheral Anaerobic Blood Culture Pending Received 09/06/17 11:40 Urine Random Urine Legionella Antigen Pending Received 09/06/17 11:40 Urine Catheterized Urine Urine Culture Pending Received Administered Medications Medications (Trade) Dose Ordered Sig/Shyla Route PRN Reason Start Time Stop Time Status Last Admin Dose Admin Sodium Chloride 1,000 ml @ 100 mls/hr Q10H IV 09/06/17 13:00 09/06/17 15:49 Sodium Chloride (NS Flush) 2 ml BID IV FLUSH 09/06/17 21:00 09/06/17 23:45 Acetaminophen (Tylenol) 650 mg Q4H PRN PO headache, fever, pain 1-4 09/06/17 13:00 09/06/17 19:41 Cefepime HCl 2000 mg/Sodium Chloride 100 ml @ 200 mls/hr Q8H IV 09/06/17 16:00 09/07/17 08:14 Levofloxacin/ Dextrose 150 ml @ 100 mls/hr Q24H IV 09/06/17 20:00 09/06/17 21:33 Objective Remarks GENERAL: Middle aged chronically ill appearing male, lying supine in bed in [facility]. SKIN: Warm and dry. HEAD: Normocephalic. EYES: No injection or drainage. NECK: Supple, trachea midline. CARDIOVASCULAR: Regular rate and rhythm RESPIRATORY: Breath sounds equal bilaterally. No accessory muscle use. GASTROINTESTINAL: Abdomen soft, non-tender, nondistended. EXTREMITIES: No cyanosis MUSCULOSKELETAL: Adequate muscle tone. NEUROLOGICAL: No obvious focal deficit. Awake, alert, and oriented x3. Assessment/Plan Problem List: (1) Pneumonia ICD Codes: J18.9 - Pneumonia, unspecified organism Plan: --on antibiotics --ID has been consulted. (2) Normocytic anemia ICD Codes: D64.9 - Anemia, unspecified Status: Acute Plan: --monitor and transfuse as needed. (3) Pulmonary emboli ICD Codes: I26.99 - Other pulmonary embolism without acute cor pulmonale Status: Chronic Plan: --on coumadin--currently on hold d/t coagulopathy (4) Non-Hodgkin lymphoma ICD Codes: C85.90 - Non-Hodgkin lymphoma, unspecified, unspecified site Status: Acute Plan: --will hold chemotherapy this week d/t admission for pneumonia Assessment 47y/o male with high-grade diffuse large B-cell lymphoma admitted for pneumonia and nausea/vomiting as well as anemia. History of pulmonary embolism currently on anticoagulation. Hypertension. Protein-calorie malnutrition. Plan 1. continue antibiotics and hydration 2. monitor INR 3. start Marinol for appetite. Attending Statement The exam, history, and the medical decision-making described in the above note were completed with the assistance of the mid-level provider. I reviewed and agree with the findings presented. I attest that I had a [id number] encounter with the patient on the same day, and personally performed and documented my assessment and findings in the medical record.Chart reviewed. Pt now afebrile. No Cp/SOB. Urine output improved with hydration. No N/V. Continue abx and hydration. Monitor culture. Hold chemotherapy until sepsis resolved. Problem Qualifiers (1) Non-Hodgkin lymphoma: Qualified Codes: C83.38 - Diffuse large b-cell lymphoma, lymph nodes of multiple sites Brenda Platt Sep 07, 2017 09:04 Ruslan Connelly MD Sep 07, 2017 17:38
--- NOTE | 2017-09-07 09:30 | HHI.PR ---
Subjective Remarks For sepsis, pneumonia in a patient with a history of diffuse large B-cell lymphoma. Patient is currently doing better. Denies any fever overnight. No chest pain, shortness of breath. He is now on supplemental oxygen via nasal cannula. Objective Vitals Vital Signs Date Time Temp Pulse Resp B/P (MAP) Pulse Ox O2 Delivery O2 Flow Rate FiO2 09/07/17 08:09 98.1 70 18 100/53 (69) 97 09/07/17 07:53 98 Nasal Cannula 2.00 09/07/17 04:35 98.6 87 18 93/66 (75) 99 09/07/17 04:02 86 09/07/17 00:09 97.7 92 18 94/66 (75) 97 09/07/17 00:03 98 09/06/17 23:15 99 Nasal Cannula 2.00 09/06/17 20:01 109 09/06/17 19:34 102.0 111 22 103/62 99 09/06/17 16:39 100.9 105 18 98/58 91 09/06/17 16:34 100.9 107 18 98/58 98 09/06/17 15:47 108 20 93/55 (68) 100 Nasal Cannula 2.00 09/06/17 14:40 101.5 108 20 94/57 98 09/06/17 14:20 102.5 103 20 95/51 (66) 98 Nasal Cannula 2.00 09/06/17 14:15 102.5 106 20 95/51 98 09/06/17 13:45 100 Nasal Cannula 1.50 09/06/17 12:41 103 20 114/60 (78) 98 Nasal Cannula 2.00 09/06/17 10:28 117 20 103/51 (68) 98 Nasal Cannula 2.00 09/06/17 09:34 99.9 124 22 96/63 (74) 98 Nasal Cannula 2.00 09/06/17 09:30 98.9 124 22 96/63 (74) 92 I/O 09/06/17 09/06/17 09/06/17 09/07/17 09/07/17 09/07/17 07:00 15:00 23:00 07:00 15:00 23:00 Intake Total 3000 ml 1275 ml 1390 ml Output Total 400 ml Balance 3000 ml 1275 ml 990 ml Intake Oral 280 ml IV Total 3000 ml 300 ml 1110 ml Packed Cells 800 ml Blood Product IV Normal Saline Flush 175 ml Output Urine Total 400 ml Result Diagram: 09/07/1752909/07/[address] chest 09/06/2017 1. Patchy bilateral air space consolidation in both lung bases. Differential diagnosis includes bronchopneumonia and aspiration. Small pleural effusions improved from April. 2. Extensive mediastinal adenopathy also improved from April. Objective Remarks GENERAL: Alert, Oriented x 3, NAD SKIN: Warm and dry. HEAD: Normocephalic. EYES: No scleral icterus. No injection or drainage. NECK: Supple, trachea midline. No JVD or lymphadenopathy. CARDIOVASCULAR: Regular rate and rhythm without murmurs, gallops, or rubs. RESPIRATORY: Breath sounds equal bilaterally. No accessory muscle use. Bibasilar crackles. GASTROINTESTINAL: Abdomen soft, non-tender, nondistended. MUSCULOSKELETAL: No cyanosis, or edema. BACK: Nontender without obvious deformity. No CVA tenderness. Procedures None. A/P Problem List: (1) Non-Hodgkin lymphoma ICD Code: C85.90 - Non-Hodgkin lymphoma, unspecified, unspecified site Status: Acute (2) Anemia ICD Code: D64.9 - Anemia, unspecified Status: Acute (3) Poor appetite ICD Code: R63.0 - Anorexia Status: Acute Assessment and Plan Mr. Werner is a 47-year-old male patient with a known medical history of non- Hodgkin B-cell lymphoma, HTN and history of PE who presented to the ED with complaints of generalized weakness, nausea, vomiting and cough x 1 week. Hemoglobin 6.6 on presentation to ED, 2 units PRBC have been ordered. Acutely febrile, temp 102.5. WBC 20.9. BC and urine cultures pending. CXR pending. Status post 3 L NS bolus in ED. 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 - Received Cytoxan and CHOP (cyclophosphamide, doxorubicin, vincristine and prednisone) - Subsequently, also received Rituxan and EPOCH (cyclophosphamide, doxorubicin, etoposide, vincristine, prednisone) - Last chemotherapy was 2 weeks prior to this admission. - Haptoglobin 617. LDH 196. Iron level 17, TIBC 105, ferritin 2200. - Heme/onc following. Sepsis (presence of leukocytosis with mild bandemia, fever, tachycardia and tachypnea) suspect secondary to immunosuppression from chemotherapy vs cough vs PNA Bilateral pneumonia - On admission, WBC 20.7, temp 102.5, HR 124, RR 22. Lactic acid 1.1. - WBC is improved to 14.2K. - Status post 3 L NS bolus in ED. Continue on maintenance IVF NS @ 100 ml/ hr. - CXR shows bilateral infiltrates CT Chest shows bilateral infiltrates as well. CXR, CT chest reviewed by me on 09/06/2017. - Supplemental O2 to keep sats > 90%. - Blood cultures and urine culture ordered and pending. - Heme/onc started patient on Cefepime and Vancomycin. Continue Levaquin 750mg IV Q24hrs for atypical coverage as well. - ID consult pending. Monotherapy with Levaquin maybe sufficient. Microcytic hypochromic anemia: Hemoglobin 6.6/Hematocrit 19.6 on presentation. Hemoccult negative. 2 units PRBC ordered and infusing. - Hgb improved after transfusion. Hgb 6.6 --> 10.7. Hypokalemia: K 2.7 on presentation. Total of 80 meq IV replacement ordered. - K+ 2.7 on 09/07/2017 as well. Will replace with more IV KCL. Hypomagnesemia: 1.2 on presentation. Total of 4 g IV replacement ordered. Repeat Mg 2.3. No further Mg needed. Hypertension, chronic: BP 100/53 currently. No need for any antihypertensives. History of Pulmonary embolism - Had massive PE requiring tPA in April 2017. Currently on Warfarin at home. Supratherapeutic INR due to Warfarin - No active bleeding. INR was 6.2 on 09/06. Patient received vitamin K 2.5 mg. Repeat INR pending this morning. DVT Prophylaxis: SCDs. Will hold chemical prophylaxis due to low H&H. Continue to monitor. Problem Qualifiers (1) Non-Hodgkin lymphoma: Qualified Codes: C83.38 - Diffuse large b-cell lymphoma, lymph nodes of multiple sites (2) Anemia: Qualified Codes: D64.9 - Anemia, unspecified Zulma Zavala DO Sep 07, 2017 9:30 am
[2017-09-07] MEDS: VANCOMYCIN INJ 1,000 MG in SODIUM CHLOR 0.9% 250 ML INJ 250 ML IV SCH ×2 (11:34→22:11)
[2017-09-07 12:53] LABS: INTERNATIONAL NORMALIZED RATIO 1.8 RATIO; PROTHROMBIN TIME - PATIENT 20.2 SEC (9.8-11.6)
[2017-09-07] MEDS: DRONABINOL 2.5 MG CAP PO SCH ×2 (12:54→16:14)
--- NOTE | 2017-09-07 15:32 | PD.ID.CON ---
History of Present Illness Service ID Consult Requested By Dr Zavala Reason for Consult PNA Primary Care Physician No Primary Care Physician Diagnoses: History of Present Illness 47 yo with B large cell lymphoma c/o weeks- mos of nightsweats, chills no fever was supposed to have chemo started but it was cancelled 2/2 pt's condition PORT x 5-6 mos Now growing GPC in 4/4 bottles, ID's as MRSA non neutropenic CXR with interstitial infilatrates on O2 Past Family Social History Allergies: Coded Allergies: Milk Containing Products (Verified Allergy, Mild, diarrhea, 06/11/17) Past Medical History NHL c.diff - recent PE Active Ordered Medications Medications where reviewed in EMR Antibiotics Include: cefepime vancomycin levaquine Physical Exam Vital Signs Vital Signs Date Time Temp Pulse Resp B/P (MAP) Pulse Ox O2 Delivery O2 Flow Rate FiO2 09/07/17 11:36 97.9 63 18 116/65 (82) 97 09/07/17 08:13 80 09/07/17 08:09 98.1 70 18 100/53 (69) 97 09/07/17 07:53 98 Nasal Cannula 2.00 09/07/17 04:35 98.6 87 18 93/66 (75) 99 09/07/17 04:02 86 09/07/17 00:09 97.7 92 18 94/66 (75) 97 09/07/17 00:03 98 09/06/17 23:15 99 Nasal Cannula 2.00 09/06/17 20:01 109 09/06/17 19:34 102.0 111 22 103/62 99 09/06/17 16:39 100.9 105 18 98/58 91 09/06/17 16:34 100.9 107 18 98/58 98 09/06/17 15:47 108 20 93/55 (68) 100 Nasal Cannula 2.00 Physical Exam CONSTITUTIONAL/GENERAL: This is a thin poorly nourished chronically ill appearing patient, in no apparent distress. TUBES/LINES/DRAINS: PORT in place R chest w/o skin changes or tenderness SKIN: No jaundice, rashes, or lesions. Skin temperature appropriate. Not diaphoretic. Alopecia HEAD: Atraumatic. Normocephalic. EYES: Pupils equal and round and reactive. Extraocular motions intact. No scleral icterus. No injection or drainage. Fundi not examined. ENT: Hearing grossly normal. Nose without bleeding or purulent drainage. Throat without visible erythema, exudates, masses, or lesions. NECK: Trachea midline. Supple, nontender. CARDIOVASCULAR: Regular rate and rhythm without murmurs, gallops, or rubs. No JVD. Peripheral pulses symmetric. RESPIRATORY/CHEST: Symmetric, unlabored respirations. Clear to auscultation. Breath sounds equal bilaterally. No wheezes, rales, or rhonchi. GASTROINTESTINAL: Abdomen soft, non-tender, nondistended. No hepato-splenomegaly , or palpable masses. No guarding. Bowel sounds present. GENITOURINARY: Without palpable bladder distension. MUSCULOSKELETAL: Extremities without clubbing, cyanosis, or edema. No joint tenderness or effusion noted. No calf tenderness. No mottling or clubbing. LYMPHATICS: No palpable cervical or supraclavicular adenopathy. NEUROLOGICAL: Awake and alert. Motor and sensory grossly within normal limits. Follows commands. Cognitively sharp. Moves all extremities. PSYCHIATRIC: No obvious anxiety/depression. no apparent hallucinations or other psychotic thought process. Flat affect Laboratory Laboratory Tests Test 09/07/17 05:30 09/07/17 11:40 White Blood Count 14.2 Red Blood Count 4.08 Hemoglobin 10.7 Hematocrit 32.2 Mean Corpuscular Volume 78.9 Mean Corpuscular Hemoglobin 26.3 Mean Corpuscular Hemoglobin Concent 33.3 Red Cell Distribution Width 19.0 Platelet Count 186 Mean Platelet Volume 8.2 Neutrophils (%) (Auto) 95.1 Lymphocytes (%) (Auto) 1.2 Monocytes (%) (Auto) 3.4 Eosinophils (%) (Auto) 0.0 Basophils (%) (Auto) 0.3 Neutrophils # (Auto) 13.5 Lymphocytes # (Auto) 0.2 Monocytes # (Auto) 0.5 Eosinophils # (Auto) 0.0 Basophils # (Auto) 0.0 CBC Comment DIFF FINAL Differential Comment Blood Urea Nitrogen 6 Creatinine 0.47 Random Glucose 139 Total Protein 4.8 Calcium Level 7.4 Sodium Level 136 Potassium Level 2.7 Chloride Level 105 Carbon Dioxide Level 22.9 Anion Gap 8 Estimat Glomerular Filtration Rate 230 Protein Corrected Calcium 8.7 Magnesium Level 2.3 1.8 Prothrombin Time 20.2 Prothromb Time International Ratio 1.8 Date/Time Source Procedure Growth Status 09/06/17 10:05 Blood Peripheral Aerobic Blood Culture - Preliminary Gram Positive Cocci Resulted 09/06/17 10:05 Anaerobic Blood Culture - Preliminary Gram Positive Cocci Resulted 09/06/17 11:40 Urine Random Urine Legionella Antigen - Final PRESUMPTIVE NEGATIVE FOR LEGIONELLA P... Complete Result Diagram: 09/07/1752909/07/17529 Imaging Last Impressions Chest X-Ray 09/06/17 0000 Signed Impressions: Service Date/Time: Wednesday, September 06, 2017 14:57 - CONCLUSION: Patchy interstitial infiltrates left lower lung. The lungs are otherwise clear. Bryon Evans MD Chest CT 09/06/17 0000 Signed Impressions: Service Date/Time: Wednesday, September 06, 2017 15:57 - CONCLUSION: 1. Patchy bilateral air space consolidation in both lung bases. Differential diagnosis includes bronchopneumonia and aspiration. Small pleural effusions improved from April. 2. Extensive mediastinal adenopathy also improved from April. Travis Ruffin MD Assessment and Plan Assessment and Plan NHL MRSA sepsis - source PORT ? Atyopical PNA remove PORT cont vanco cont cefepime add azithromycin dc levaquine Kelsie Hong MD Sep 07, 2017 15:32
[2017-09-07] MEDS: SODIUM CHLOR 0.9% 1000 ML INJ 1,000 ML IV SCH ×2 (16:14→18:08)
[2017-09-07] MEDS: AZITHROMYCIN INJ 500 MG in SODIUM CHLOR 0.9% 250 ML INJ 250 ML IV SCH (16:43)
[2017-09-07] MEDS ORDERED: Vancomycin Consult Pharmacy 1 EA OTHER SCH (22:00)
[2017-09-08] VITALS (11 sets, daily range): BP systolic 100–142; BP diastolic 60–81; PULSE 60–101; RESP 16–20; TEMP 98.2–100.7; O2SAT 94–98
[2017-09-08] MEDS: CEFEPIME INJ 2,000 MG in SODIUM CHLORIDE 0.9% INJ 100 ML IV SCH ×3 (00:41→16:00)
[2017-09-08] MEDS: SODIUM CHLOR 0.9% 1000 ML INJ 1,000 ML IV SCH ×2 (04:28→15:00)
[2017-09-08 05:20] LABS: AUTOMATED NEUTROPHIL # 18.8 TH/MM3 (1.8-7.7); BASOPHIL % 0.1 % (0.0-2.0); EOSINOPHIL % 0.1 % (0.0-4.0); HEMATOCRIT 33.2 % (39.0-51.0); HEMOGLOBIN 11.1 GM/DL (13.0-17.0); LYMPH % 1.6 % (9.0-44.0); LYMPHOCYTE # 0.3 TH/MM3 (1.0-4.8); MEAN CELL VOLUME 79.7 FL (80.0-100.0); MEAN CORPUSCULAR HEMOGLOBIN 26.5 PG (27.0-34.0); MEAN CORPUSCULAR HGB CONC 33.3 % (32.0-36.0); MEAN PLATELET VOLUME 8.3 FL (7.0-11.0); MONO % 4.1 % (0.0-8.0); MONOCYTE # 0.8 TH/MM3 (0-0.9); NEUT % 94.1 % (16.0-70.0); PLATELET COUNT 144 TH/MM3 (150-450); RED BLOOD COUNT 4.17 MIL/MM3 (4.50-5.90); RED CELL DISTRIBUTION WIDTH 18.9 % (11.6-17.2)
[2017-09-08 05:48] LABS: ALBUMIN 1.4 GM/DL (3.4-5.0); AST (GOT) 7 U/L (15-37); BICARBONATE 20.8 MEQ/L (21.0-32.0); BLOOD UREA NITROGEN 5 MG/DL (7-18); CALCIUM 7.5 MG/DL (8.5-10.1); CHLORIDE 110 MEQ/L (98-107); CREATININE 0.34 MG/DL (0.60-1.30); GLOMERULAR FILTRATION RATE 334 ML/MIN (>89); GLUCOSE,RANDOM 101 MG/DL (74-106); SODIUM (NA) 140 MEQ/L (136-145)
[2017-09-08 05:51] LABS: ALKALINE PHOSPHATASE 75 U/L (45-117); ALT (GPT) LESS THAN 6 U/L (12-78); TOTAL BILIRUBIN ADULT 0.5 MG/DL (0.2-1.0); TOTAL PROTEIN 4.5 GM/DL (6.4-8.2)
[2017-09-08] MEDS ORDERED: POTASSIUM CHLORIDE 25 MEQ EFFERVESCENT TAB PO ONE (06:30)
[2017-09-08] MEDS: POTASSIUM CHLOR 20 MEQ PREMIX 100 ML IV SCH ×6 (06:42→20:20)
[2017-09-08 08:31] LABS: INTERNATIONAL NORMALIZED RATIO 1.4 RATIO; PROTHROMBIN TIME - PATIENT 15.8 SEC (9.8-11.6)
[2017-09-08] MEDS: ENOXAPARIN SODIUM 60 MG/0.6 ML SYRINGE SQ SCH ×2 (09:00→20:20)
[2017-09-08] MEDS: SODIUM CHLORIDE 0.9% FLUSH 10 ML FLUSH IV FLUSH SCH ×2 (09:00→20:21)
--- NOTE | 2017-09-08 09:33 | PD.ONC.PN ---
Subjective Subjective Remarks Afebrile overnight. Patient had multiple episodes of diarrhea overnight. He had difficulty sleeping. No vomiting. Objective Data Date Time Temp Pulse Resp B/P (MAP) Pulse Ox O2 Delivery O2 Flow Rate FiO2 09/08/17 04:00 98.2 86 16 100/66 (77) 96 09/08/17 00:00 98.8 73 20 105/60 (75) 98 09/07/17 20:07 89 09/07/17 20:05 97 2.00 09/07/17 20:00 98.8 68 21 94/50 (65) 97 09/07/17 16:06 99.7 90 18 89/53 (65) 97 94/47 (63) 09/07/17 11:36 97.9 63 18 116/65 (82) 97 09/08/17 09/08/17 09/08/17 07:00 15:00 23:00 Output Total 1300 ml Balance -1300 ml Result Diagram: 09/08/17 0431 09/08/17 0431 Laboratory Results Laboratory Tests Test 09/07/17 11:40 09/08/17 04:31 09/08/17 08:00 Prothrombin Time 20.2 SEC 15.8 SEC Prothromb Time International Ratio 1.8 RATIO 1.4 RATIO Magnesium Level 1.8 MG/DL 1.5 MG/DL White Blood Count 20.0 TH/MM3 Red Blood Count 4.17 MIL/MM3 Hemoglobin 11.1 GM/DL Hematocrit 33.2 % Mean Corpuscular Volume 79.7 FL Mean Corpuscular Hemoglobin 26.5 PG Mean Corpuscular Hemoglobin Concent 33.3 % Red Cell Distribution Width 18.9 % Platelet Count 144 TH/MM3 Mean Platelet Volume 8.3 FL Neutrophils (%) (Auto) 94.1 % Lymphocytes (%) (Auto) 1.6 % Monocytes (%) (Auto) 4.1 % Eosinophils (%) (Auto) 0.1 % Basophils (%) (Auto) 0.1 % Neutrophils # (Auto) 18.8 TH/MM3 Lymphocytes # (Auto) 0.3 TH/MM3 Monocytes # (Auto) 0.8 TH/MM3 Eosinophils # (Auto) 0.0 TH/MM3 Basophils # (Auto) 0.0 TH/MM3 CBC Comment DIFF FINAL Differential Comment Blood Urea Nitrogen 5 MG/DL Creatinine 0.34 MG/DL Random Glucose 101 MG/DL Total Protein 4.5 GM/DL Albumin 1.4 GM/DL Calcium Level 7.5 MG/DL Alkaline Phosphatase 75 U/L Aspartate Amino Transf (AST/SGOT) 7 U/L Alanine Aminotransferase (ALT/SGPT) LESS THAN 6 U/L Total Bilirubin 0.5 MG/DL Sodium Level 140 MEQ/L Potassium Level 2.8 MEQ/L Chloride Level 110 MEQ/L Carbon Dioxide Level 20.8 MEQ/L Anion Gap 9 MEQ/L Estimat Glomerular Filtration Rate 334 ML/MIN Culture Results Microbiology Date/Time Source Procedure Growth Status 09/06/17 10:05 Blood Peripheral Aerobic Blood Culture - Preliminary Gram Positive Cocci Resulted 09/06/17 10:05 Anaerobic Blood Culture - Preliminary Gram Positive Cocci Resulted 09/06/17 10:00 Blood Peripheral Aerobic Blood Culture - Preliminary S. Aureus Mrsa Resulted 09/06/17 10:00 Anaerobic Blood Culture - Preliminary Gram Positive Cocci Resulted 09/06/17 11:40 Urine Random Urine Legionella Antigen - Final PRESUMPTIVE NEGATIVE FOR LEGIONELLA P... Complete 09/06/17 11:40 Urine Catheterized Urine Urine Culture - Preliminary NO GROWTH IN 24 HOURS. Resulted Administered Medications Medications (Trade) Dose Ordered Sig/Shyla Route PRN Reason Start Time Stop Time Status Last Admin Dose Admin Sodium Chloride 1,000 ml @ 100 mls/hr Q10H IV 09/06/17 13:00 09/08/17 04:28 Sodium Chloride (NS Flush) 2 ml BID IV FLUSH 09/06/17 21:00 09/06/17 23:45 Acetaminophen (Tylenol) 650 mg Q4H PRN PO headache, fever, pain 1-4 09/06/17 13:00 09/06/17 19:41 Cefepime HCl 2000 mg/Sodium Chloride 100 ml @ 200 mls/hr Q8H IV 09/06/17 16:00 09/08/17 00:41 Dronabinol (Marinol) 2.5 mg BID@,16 PO 09/07/17 11:00 09/07/17 16:14 Azithromycin 500 mg/Sodium Chloride 250 ml @ 250 mls/hr Q24H IV 09/07/17 16:00 09/07/17 16:43 Potassium Chloride 100 ml @ 50 mls/hr Q2H IV 09/08/17 06:30 09/08/17 10:29 09/08/17 06:42 Objective Remarks GENERAL: Malnourished male, lying supine in bed in nad. SKIN: Warm and dry. HEAD: Normocephalic. EYES: No injection or drainage. NECK: Supple, trachea midline. CARDIOVASCULAR: Regular rate and rhythm RESPIRATORY: Breath sounds equal bilaterally. No accessory muscle use. GASTROINTESTINAL: Abdomen soft, non-tender, nondistended. EXTREMITIES: No cyanosis MUSCULOSKELETAL: Adequate muscle tone. NEUROLOGICAL: awake and alert, normal speech. moving all extremities. Assessment/Plan Problem List: (1) Pneumonia ICD Codes: J18.9 - Pneumonia, unspecified organism Plan: --on antibiotics --ID has been consulted. (2) Normocytic anemia ICD Codes: D64.9 - Anemia, unspecified Status: Acute Plan: --monitor and transfuse as needed. (3) Pulmonary emboli ICD Codes: I26.99 - Other pulmonary embolism without acute cor pulmonale Status: Chronic Plan: --on coumadin--currently on hold d/t coagulopathy (4) Non-Hodgkin lymphoma ICD Codes: C85.90 - Non-Hodgkin lymphoma, unspecified, unspecified site Status: Acute Plan: --will hold chemotherapy this week d/t admission for pneumonia (5) Sepsis ICD Codes: A41.9 - Sepsis, unspecified organism Plan: --ID following --BC + GPC --++ vanco, cefepime, azithromycin Assessment 47y/o male with high-grade diffuse large B-cell lymphoma admitted for pneumonia and nausea/vomiting as well as anemia. History of pulmonary embolism currently on anticoagulation. Hypertension. Protein-calorie malnutrition. Plan 1. continue antibiotics and hydration 2. -r-u-w-i-t-o-r- -I-N-R--,- -i-j-s-u-m-e- -i-i-h-m-a-d-i-n- -3-.- -d-o-s-e- -w-i-t-h- -P-w-x-e-n-o-x- -t-o-d-a-y- 4. UPDATE: will hold coumadin and Lovenox until patient has had port removal later today. Attending Statement The exam, history, and the medical decision-making described in the above note were completed with the assistance of the mid-level provider. I reviewed and agree with the findings presented. I attest that I had a [id number] encounter with the patient on the same day, and personally performed and documented my assessment and findings in the medical record. Feeling better. Still has left pleuritic pain likely pneumonia. Afebrile overnight. Culture + MRSA. Await removal of port. +diarrhea may be due to abx. Continue abx per ID. Continue supportive care. Hold chemotx this week. Problem Qualifiers (1) Non-Hodgkin lymphoma: Qualified Codes: C83.38 - Diffuse large b-cell lymphoma, lymph nodes of multiple sites Brenda Platt Sep 08, 2017 09:33 Ruslan Connelly MD Sep 08, 2017 14:58
[2017-09-08] MEDS ORDERED: PHARMACY ORDERED LAB ONE (09:45)
[2017-09-08] MEDS ORDERED: MIDAZOLAM HCL 2 MG/2 ML VIAL ONE (09:53)
[2017-09-08] MEDS ORDERED: VANCOMYCIN INJ 1,250 MG in SODIUM CHLOR 0.9% 250 ML INJ 250 ML IV SCH (10:00)
[2017-09-08] MEDS ORDERED: LIDOCAINE 1%/EPINEPHrine 1:100,000 SOLN 20 ML VIAL ONE (10:25)
--- NOTE | 2017-09-08 10:28 | HHI.PR ---
Subjective Remarks Follow up for sepsis, pneumonia in a patient with a history of diffuse large B- cell lymphoma. Patient is currently doing well. He is about to go to special procedure for port removal. Denies any fever or chills. However he complains of diarrhea during the night. Objective Vitals Vital Signs Date Time Temp Pulse Resp B/P (MAP) Pulse Ox O2 Delivery O2 Flow Rate FiO2 09/08/17 04:00 98.2 86 16 100/66 (77) 96 09/08/17 00:00 98.8 73 20 105/60 (75) 98 09/07/17 20:07 89 09/07/17 20:05 97 2.00 09/07/17 20:00 98.8 68 21 94/50 (65) 97 09/07/17 16:06 99.7 90 18 89/53 (65) 97 94/47 (63) 09/07/17 11:36 97.9 63 18 116/65 (82) 97 I/O 09/07/17 09/07/17 09/07/17 09/08/17 09/08/17 09/08/17 07:00 15:00 23:00 07:00 15:00 23:00 Intake Total 1390 ml 550 ml 1815 ml Output Total 400 ml 800 ml 1300 ml Balance 990 ml 550 ml 1015 ml -1300 ml Intake Oral 280 ml 840 ml IV Total 1110 ml 550 ml 975 ml Output Urine Total 400 ml 800 ml 1300 ml # Voids 1 # Bowel Movements 1 Result Diagram: 09/08/17 0431 09/08/17 0431 Imaging Last Impressions Chest X-Ray 09/06/17 0000 Signed Impressions: Service Date/Time: Wednesday, September 06, 2017 14:57 - CONCLUSION: Patchy interstitial infiltrates left lower lung. The lungs are otherwise clear. Bryon Evans MD Chest CT 09/06/17 0000 Signed Impressions: Service Date/Time: Wednesday, September 06, 2017 15:57 - CONCLUSION: 1. Patchy bilateral air space consolidation in both lung bases. Differential diagnosis includes bronchopneumonia and aspiration. Small pleural effusions improved from April. 2. Extensive mediastinal adenopathy also improved from April. Travis Ruffin MD Objective Remarks GENERAL: Alert, Oriented x 3, NAD SKIN: Warm and dry. HEAD: Normocephalic. EYES: No scleral icterus. No injection or drainage. NECK: Supple, trachea midline. No JVD or lymphadenopathy. CARDIOVASCULAR: Regular rate and rhythm without murmurs, gallops, or rubs. RESPIRATORY: Breath sounds equal bilaterally. No accessory muscle use. Bibasilar crackles. GASTROINTESTINAL: Abdomen soft, non-tender, nondistended. MUSCULOSKELETAL: No cyanosis, or edema. BACK: Nontender without obvious deformity. No CVA tenderness. Procedures None. A/P Problem List: (1) Non-Hodgkin lymphoma ICD Code: C85.90 - Non-Hodgkin lymphoma, unspecified, unspecified site Status: Acute (2) Anemia ICD Code: D64.9 - Anemia, unspecified Status: Acute (3) Poor appetite ICD Code: R63.0 - Anorexia Status: Acute Assessment and Plan Mr. Werner is a 47-year-old male patient with a known medical history of non- Hodgkin B-cell lymphoma, HTN and history of PE who presented to the ED with complaints of generalized weakness, nausea, vomiting and cough x 1 week. Hemoglobin 6.6 on presentation to ED, 2 units PRBC have been ordered. Acutely febrile, temp 102.5. WBC 20.9. BC and urine cultures pending. CXR pending. Status post 3 L NS bolus in ED. 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 - Received Cytoxan and CHOP (cyclophosphamide, doxorubicin, vincristine and prednisone) - Subsequently, also received Rituxan and EPOCH (cyclophosphamide, doxorubicin, etoposide, vincristine, prednisone) - Last chemotherapy was 2 weeks prior to this admission. - Haptoglobin 617. LDH 196. Iron level 17, TIBC 105, ferritin 2200. - Heme/onc following. Sepsis (presence of leukocytosis with mild bandemia, fever, tachycardia and tachypnea) suspect secondary to immunosuppression from chemotherapy vs cough vs PNA Bilateral pneumonia - On admission, WBC 20.7, temp 102.5, HR 124, RR 22. Lactic acid 1.1. - WBC is elevated 14.2 --> 20.0 - Status post 3 L NS bolus in ED. Continue on maintenance IVF NS @ 100 ml/ hr. - CXR shows bilateral infiltrates CT Chest shows bilateral infiltrates as well. CXR, CT chest reviewed by me on 09/06/2017. - Supplemental O2 to keep sats > 90%. - Blood cultures growing MRSA, GPC. - ID is following. Currently on Cefepime and Vancomycin and azithromycin. - Port removal today. C. difficile PCR pending. Microcytic hypochromic anemia: Hemoglobin 6.6/Hematocrit 19.6 on presentation. Hemoccult negative. 2 units PRBC ordered and infusing. - Hgb improved after transfusion. Hgb 6.6 --> 10.7--> 11.1 Hypokalemia: K 2.7 on presentation. Patient received multiple doses of IV KCL - K+ 2.7 --> 2.8. Will replace with 8 meQ IV KCL. - Check BMP, Mg level in the AM. Hypomagnesemia: 1.2 on presentation. Total of 4 g IV Magnesium sulfate given. Repeat Mg 2.3. Hypertension, chronic: BP 100/66 currently. No need for any antihypertensives. History of Pulmonary embolism - Had massive PE requiring tPA in April 2017. Currently on Warfarin at home. Supratherapeutic INR due to Warfarin - No active bleeding. INR was 6.2 on 09/06. Patient received vitamin K 2.5 mg. INR 1.4 on 09/08/2017. DVT Prophylaxis: SCDs. Will hold chemical prophylaxis due to low H&H. Problem Qualifiers (1) Non-Hodgkin lymphoma: Qualified Codes: C83.38 - Diffuse large b-cell lymphoma, lymph nodes of multiple sites (2) Anemia: Qualified Codes: D64.9 - Anemia, unspecified Zulma Zavala DO Sep 08, 2017 10:28 am
--- NOTE | 2017-09-08 10:57 | PD.RAD ---
Post Procedure Progress Note Pre Procedure Diagnosis: (1) Sepsis Post Procedure Diagnosis: (1) Sepsis Procedure Date: Sep 08, 2017 Supervising Radiologist: Adama Briceño Estimated blood loss: 3CC Anesthesia: Local, Conscious Sedation Plan of Activity Patient to Unit: ROPU Patient Condition: Fair Additional Comments: Port removed from the right chest. Pocket irrigated and closed primarily. Full dictated report to follow See PACS Report for procedural detail/treatment Adama Briceño MD Sep 08, 2017 10:57
[2017-09-08] MEDS: DRONABINOL 2.5 MG CAP PO SCH ×2 (11:00→16:00)
--- NOTE | 2017-09-08 14:11 | RADRPT ---
EXAM DATE/TIME: 09/08/2017 00:00 [place] COMPARISON: [facility] W/US, LEFT, May 15, 2017, 15:13. INDICATIONS : Patient presents with history of lymphoma in need of port removal due to infection. MEDICAL HISTORY : Hypertension Diffuse large B cell lymphoma stage III Pulmonary embolism Renal failure SURGICAL HISTORY : Bone marrow aspiration - 04/2017 Bone marrow biopsy - 04/[address] resection Port placement ENCOUNTER: Subsequent ACUITY: 2 days PAIN SCORE: 0/10 LOCATION: N/A SEDATION TIME: 30 minutes 1.) 1.5 mg midazolam (Versed) IV 2.) 75 mcg fentanyl (Sublimaze) IV Prophylactic antibiotics were administered with appropriate pre-procedure timing. Vancomycin within 2 hrs of procedure, Ancef (or alternative) within 1 hr of procedure. PROCEDURE : 1. Removal of Fiwxmx-m-hmac. 2. Conscious sedation with continuous EKG and oximetry monitoring. The risk, benefits and potential complications of Hqkugy-[id number] removal were discussed. Written conse nt was obtained. The patient was placed supine. The chest wall was prepped in sterile fashion. Full sterile techniqu e was used, including cap, mask, sterile gloves and gown, and a large sterile sheet. Hand hygiene an d 2% chlorhexidine and/or Betadine/alcohol prep was utilized per protocol for cutaneous antisepsis. The skin and subcutaneous tissues were infiltrated with local anesthetic solution. A small incision w as made, the subcutaneous pocket was opened. The port was dissected from the subcutaneous tissues and easily removed in one piece. The pocket incision was closed with subcuticular Vicryl suture. Steri -Strips were applied. Conscious sedation was performed with the prescribed dosages and duration as above in the presence of an independent trained radiology nurse to assist in the monitoring of the patient. EKG and oximetry remained stable throughout the procedure. The patient tolerated the procedure well and there were no complications. The patient was sent to post anesthesia recovery in stable condition. CONCLUSION: Uncomplicated port removal as above. Adama Briceño MD on September 08, 2017 at 14:08 Board Certified Radiologist. This report was verified electronically.
[2017-09-08] MEDS ORDERED: WARFARIN SOD 5 MG TAB PO SCH (16:00)
[2017-09-08] MEDS: AZITHROMYCIN INJ 500 MG in SODIUM CHLOR 0.9% 250 ML INJ 250 ML IV SCH (16:00)
[2017-09-09] VITALS (11 sets, daily range): BP systolic 104–118; BP diastolic 58–74; PULSE 64–92; RESP 18–20; TEMP 98.4–100.2; O2SAT 96–100
[2017-09-09] MEDS: CEFEPIME INJ 2,000 MG in SODIUM CHLORIDE 0.9% INJ 100 ML IV SCH ×3 (00:08→14:48)
[2017-09-09] MEDS: SODIUM CHLOR 0.9% 1000 ML INJ 1,000 ML IV SCH ×2 (01:27→14:41)
[2017-09-09] MEDS: VANCOMYCIN 1,000 MG/NS 250 ML IV SCH ×4 (04:55→16:13)
[2017-09-09] MEDS ORDERED: metroNIDAZOLE 500 MG TAB PO SCH (09:00)
[2017-09-09] MEDS: SODIUM CHLORIDE 0.9% FLUSH 10 ML FLUSH IV FLUSH SCH ×2 (09:00→21:00)
--- NOTE | 2017-09-09 10:24 | PD.ONC.PN ---
Subjective Subjective Remarks Tmax 100.7 overnight. Patient continuing to have multiple stools/diarrhea. Didn't eat breakfast this morning, but he did have dinner last night. Continuing to feel weak/tired. Objective Data Date Time Temp Pulse Resp B/P (MAP) Pulse Ox O2 Delivery O2 Flow Rate FiO2 09/09/17 04:54 99.7 84 18 118/74 (89) 96 09/09/17 04:02 89 09/09/17 02:41 86 09/09/17 01:55 89 09/09/17 00:11 100.2 90 19 106/74 (85) 96 09/09/17 00:00 92 09/08/17 23:08 94 09/08/17 20:26 100.7 98 20 114/65 (81) 95 09/08/17 20:20 101 09/08/17 17:00 98.2 77 18 112/68 (83) 97 09/08/17 13:34 98.8 91 20 126/60 (82) 96 09/08/17 11:55 68 18 142/76 (98) 94 09/08/17 11:25 60 18 142/81 (101) 98 09/08/17 11:10 98.4 60 18 130/69 (89) 98 09/09/17 09/09/17 09/09/17 07:00 15:00 23:00 Intake Total 1660 ml Output Total 300 ml Balance 1360 ml Result Diagram: 09/08/17 0431 09/09/17 0001 Laboratory Results Laboratory Tests Test 09/08/17 15:59 09/08/17 20:10 09/09/17 00:01 Vancomycin Level Trough 10.4 MCG/ML Stool C. difficile Toxin (PCR) POSITIVE Stl C. difficile Toxin Epiderm 027 PRESUMPTIVE NEGATIVE Potassium Level 4.2 MEQ/L Culture Results Microbiology Date/Time Source Procedure Growth Status 09/06/17 11:40 Urine Random Urine Legionella Antigen - Final PRESUMPTIVE NEGATIVE FOR LEGIONELLA P... Complete 09/06/17 11:40 Urine Catheterized Urine Urine Culture - Final <10,000 CFU/ML MIXED GRAM POSITIVE FL... Complete Administered Medications Medications (Trade) Dose Ordered Sig/Shyla Route PRN Reason Start Time Stop Time Status Last Admin Dose Admin Sodium Chloride 1,000 ml @ 100 mls/hr Q10H IV 09/06/17 13:00 09/09/17 01:27 Sodium Chloride (NS Flush) 2 ml UNSCH PRN IV FLUSH FLUSH AFTER USING IV ACCESS 09/06/17 13:00 09/08/17 22:44 Sodium Chloride (NS Flush) 2 ml BID IV FLUSH 09/06/17 21:00 09/09/17 09:00 Acetaminophen (Tylenol) 650 mg Q4H PRN PO headache, fever, pain 1-4 09/06/17 13:00 09/06/17 19:41 Cefepime HCl 2000 mg/Sodium Chloride 100 ml @ 200 mls/hr Q8H IV 09/06/17 16:00 09/09/17 10:15 Dronabinol (Marinol) 2.5 mg BID@,16 PO 09/07/17 11:00 09/07/17 16:14 Azithromycin 500 mg/Sodium Chloride 250 ml @ 250 mls/hr Q24H IV 09/07/17 16:00 09/08/17 16:00 Vancomycin HCl 1000 mg/Sodium Chloride 250 ml @ 250 mls/hr Q12H IV 09/09/17 04:00 09/09/17 04:55 Metronidazole (Flagyl) 500 mg Q8H PO 09/09/17 09:00 09/09/17 10:15 Objective Remarks GENERAL: Chronically ill appearing male lying in bed resting. SKIN: Warm and dry. HEAD: Normocephalic. EYES: No injection or drainage. NECK: Supple, trachea midline. CARDIOVASCULAR: Regular rate and rhythm RESPIRATORY: Breath sounds equal bilaterally. No accessory muscle use. GASTROINTESTINAL: Abdomen soft, non-tender, nondistended. EXTREMITIES: No cyanosis NEUROLOGICAL: awake and alert, normal speech. Assessment/Plan Problem List: (1) C. difficile colitis ICD Codes: A04.7 - Enterocolitis due to Clostridium difficile Status: Resolved Plan: --on Flagyl (2) Sepsis ICD Codes: A41.9 - Sepsis, unspecified organism Plan: --ID following --BC + GPC --++ vanco, cefepime, azithromycin (3) Pneumonia ICD Codes: J18.9 - Pneumonia, unspecified organism Plan: --on antibiotics --ID following. (4) Normocytic anemia ICD Codes: D64.9 - Anemia, unspecified Status: Acute Plan: --monitor and transfuse as needed. (5) Pulmonary emboli ICD Codes: I26.99 - Other pulmonary embolism without acute cor pulmonale Status: Chronic Plan: --on coumadin--currently on hold d/t coagulopathy (6) Non-Hodgkin lymphoma ICD Codes: C85.90 - Non-Hodgkin lymphoma, unspecified, unspecified site Status: Acute Plan: --will hold chemotherapy this week d/t admission for pneumonia Assessment 47y/o male with high-grade diffuse large B-cell lymphoma admitted for pneumonia and nausea/vomiting as well as anemia. History of pulmonary embolism currently on anticoagulation. Hypertension. Protein-calorie malnutrition. Plan 1. resume coumadin, monitor INR 2. monitor CBC 3. continue antibiotics 4. start Flagyl for C. diff. Attending Statement The exam, history, and the medical decision-making described in the above note were completed with the assistance of the mid-level provider. I reviewed and agree with the findings presented. I attest that I had a [id number] encounter with the patient on the same day, and personally performed and documented my assessment and findings in the medical record. Still very weak. Has worsening diarrhea. C.diff +. Add Flagyl for now until ID sees him. Continue IVF hydration. Leukocytosis is due to C.diff and MRSA sepsis. INR subtherapeutic, he has high risk of developing recurrent clots. Start lovenox and bridge to coumadin. Not able to start chemotherapy at this time due to acute illness. Problem Qualifiers (1) Non-Hodgkin lymphoma: Qualified Codes: C83.38 - Diffuse large b-cell lymphoma, lymph nodes of multiple sites Brenda Platt Sep 09, 2017 10:24 Ruslan Connelly MD Sep 09, 2017 17:27
--- NOTE | 2017-09-09 11:53 | HHI.IDPN ---
Subjective Subjective Remarks C.diff PCR + pt co diarrhea, 3-4 BMs /day + low grade fever up to 100 PORT was removed Antibiotics vanco IV cefepime azithro flagyl Allergies: Coded Allergies: Milk Containing Products (Verified Allergy, Mild, diarrhea, 06/11/17) Objective . Vital Signs Date Time Temp Pulse Resp B/P (MAP) Pulse Ox O2 Delivery O2 Flow Rate FiO2 09/09/17 08:30 98.6 74 18 116/67 (83) 100 09/09/17 04:54 99.7 84 18 118/74 (89) 96 09/09/17 04:02 89 09/09/17 02:41 86 09/09/17 01:55 89 09/09/17 00:11 100.2 90 19 106/74 (85) 96 09/09/17 00:00 92 09/08/17 23:08 94 09/08/17 20:26 100.7 98 20 114/65 (81) 95 09/08/17 20:20 101 09/08/17 17:00 98.2 77 18 112/68 (83) 97 09/08/17 13:34 98.8 91 20 126/60 (82) 96 09/08/17 11:55 68 18 142/76 (98) 94 . Laboratory Tests Test 09/08/17 04:31 White Blood Count 20.0 TH/MM3 Red Blood Count 4.17 MIL/MM3 Hemoglobin 11.1 GM/DL Hematocrit 33.2 % Mean Corpuscular Volume 79.7 FL Mean Corpuscular Hemoglobin 26.5 PG Mean Corpuscular Hemoglobin Concent 33.3 % Red Cell Distribution Width 18.9 % Platelet Count 144 TH/MM3 Mean Platelet Volume 8.3 FL Neutrophils (%) (Auto) 94.1 % Lymphocytes (%) (Auto) 1.6 % Monocytes (%) (Auto) 4.1 % Eosinophils (%) (Auto) 0.1 % Basophils (%) (Auto) 0.1 % Neutrophils # (Auto) 18.8 TH/MM3 Lymphocytes # (Auto) 0.3 TH/MM3 Monocytes # (Auto) 0.8 TH/MM3 Eosinophils # (Auto) 0.0 TH/MM3 Basophils # (Auto) 0.0 TH/MM3 CBC Comment DIFF FINAL Differential Comment Laboratory Tests Test 09/08/17 04:31 09/09/17 00:01 Blood Urea Nitrogen 5 MG/DL Creatinine 0.34 MG/DL Random Glucose 101 MG/DL Total Protein 4.5 GM/DL Albumin 1.4 GM/DL Calcium Level 7.5 MG/DL Alkaline Phosphatase 75 U/L Aspartate Amino Transf (AST/SGOT) 7 U/L Alanine Aminotransferase (ALT/SGPT) LESS THAN 6 U/L Total Bilirubin 0.5 MG/DL Sodium Level 140 MEQ/L Potassium Level 2.8 MEQ/L 4.2 MEQ/L Chloride Level 110 MEQ/L Carbon Dioxide Level 20.8 MEQ/L Anion Gap 9 MEQ/L Estimat Glomerular Filtration Rate 334 ML/MIN Magnesium Level 1.5 MG/DL Imaging Last Impressions Port Line Revision 09/08/17 0000 Signed Impressions: Service Date/Time: Friday, September 08, 2017 00:00 - CONCLUSION: Uncomplicated port removal as above. Adama Briceño MD Chest X-Ray 09/06/17 0000 Signed Impressions: Service Date/Time: Wednesday, September 06, 2017 14:57 - CONCLUSION: Patchy interstitial infiltrates left lower lung. The lungs are otherwise clear. Bryon Evans MD Chest CT 09/06/17 0000 Signed Impressions: Service Date/Time: Wednesday, September 06, 2017 15:57 - CONCLUSION: 1. Patchy bilateral air space consolidation in both lung bases. Differential diagnosis includes bronchopneumonia and aspiration. Small pleural effusions improved from April. 2. Extensive mediastinal adenopathy also improved from April. Travis Ruffin MD Physical Exam CONSTITUTIONAL/GENERAL: This is a thin poorly nourished chronically ill appearing patient, in no apparent distress. Breathes better , off O2 TUBES/LINES/DRAINS: PORT in place R chest w/o skin changes or tenderness SKIN: No jaundice, rashes, or lesions. Skin temperature appropriate. Not diaphoretic. Alopecia HEAD: Atraumatic. Normocephalic. ENT: Hearing grossly normal. Nose without bleeding or purulent drainage. Oral mucosae w/o mucositis poor dentition NECK: Trachea midline. Supple, nontender. CARDIOVASCULAR: Regular rate and rhythm without murmurs, gallops, or rubs. No JVD. Peripheral pulses symmetric. RESPIRATORY/CHEST: Symmetric, unlabored respirations. Clear to auscultation. Breath sounds equal bilaterally. No wheezes, rales, or rhonchi. GASTROINTESTINAL: Abdomen soft, non-tender, nondistended. No hepato-splenomegaly , or palpable masses. No guarding. Bowel sounds present. MUSCULOSKELETAL: Extremities without clubbing, cyanosis, or edema. NEUROLOGICAL: Awake and alert. Motor and sensory grossly within normal limits. Follows commands. Clear speech. Moves all extremities. PSYCHIATRIC: No obvious anxiety/depression. no apparent hallucinations or other psychotic thought process. Flat affect Assessment & Plan Remarks Assessment and Plan NHL MRSA sepsis - source PORT ? Atypical PNA C.diff, prior exposure to levaquine remove PORT cont vanco cont cefepime cont azithromycin start PO vancomycin DC ORAL FLAGYL ASP: vanco was chosen over flagyl 2/2 clinical idication of severe disease: 9 BMs/day, WBC 20 K Kelsie Hong MD Sep 09, 2017 11:53
--- NOTE | 2017-09-09 12:50 | HHI.PR ---
Subjective Remarks Pt had port removes yesterday. tolerating a diet. had 3 BMs loose today thus far per pt. no nausea or vomiting Objective Vitals Vital Signs Date Time Temp Pulse Resp B/P (MAP) Pulse Ox O2 Delivery O2 Flow Rate FiO2 09/09/17 08:30 98.6 74 18 116/67 (83) 100 09/09/17 04:54 99.7 84 18 118/74 (89) 96 09/09/17 04:02 89 09/09/17 02:41 86 09/09/17 01:55 89 09/09/17 00:11 100.2 90 19 106/74 (85) 96 09/09/17 00:00 92 09/08/17 23:08 94 09/08/17 20:26 100.7 98 20 114/65 (81) 95 09/08/17 20:20 101 09/08/17 17:00 98.2 77 18 112/68 (83) 97 09/08/17 13:34 98.8 91 20 126/60 (82) 96 I/O 09/08/17 09/08/17 09/08/17 09/09/17 09/09/17 09/09/17 07:00 15:00 23:00 07:00 15:00 23:00 Intake Total 200 ml 1780 ml 1660 ml Output Total 1300 ml 300 ml 300 ml Balance -1300 ml 200 ml 1480 ml 1360 ml Intake Oral 480 ml 240 ml IV Total 200 ml 1300 ml 1420 ml Output Urine Total 1300 ml 300 ml 300 ml # Voids 1 3 # Bowel Movements 1 6 3 Result Diagram: 09/08/17 0431 09/09/17 0001 Imaging Last Impressions Port Line Revision 09/08/17 0000 Signed Impressions: Service Date/Time: Friday, September 08, 2017 00:00 - CONCLUSION: Uncomplicated port removal as above. Adama Briceño MD Chest X-Ray 09/06/17 0000 Signed Impressions: Service Date/Time: Wednesday, September 06, 2017 14:57 - CONCLUSION: Patchy interstitial infiltrates left lower lung. The lungs are otherwise clear. Bryon Evans MD Chest CT 09/06/17 0000 Signed Impressions: Service Date/Time: Wednesday, September 06, 2017 15:57 - CONCLUSION: 1. Patchy bilateral air space consolidation in both lung bases. Differential diagnosis includes bronchopneumonia and aspiration. Small pleural effusions improved from April. 2. Extensive mediastinal adenopathy also improved from April. Travis Ruffin MD Objective Remarks GENERAL: Alert, laying in bed EYES: EOMI. NECK: trachea midline. No JVD or lymphadenopathy. CARDIOVASCULAR: Regular rate and rhythm without murmurs RESPIRATORY: decreased breath sounds at the bases GASTROINTESTINAL: Abdomen soft, non-tender, nondistended. MUSCULOSKELETAL: No edema. Procedures None. A/P Problem List: (1) Non-Hodgkin lymphoma ICD Code: C85.90 - Non-Hodgkin lymphoma, unspecified, unspecified site Status: Acute (2) Anemia ICD Code: D64.9 - Anemia, unspecified Status: Acute (3) Poor appetite ICD Code: R63.0 - Anorexia Status: Acute Assessment and Plan Mr. Werner is a 47-year-old male patient with a known medical history of non- Hodgkin B-cell lymphoma, HTN and history of PE who presented to the ED with complaints of generalized weakness, nausea, vomiting and cough x 1 week. Hemoglobin 6.6 on presentation to ED, 2 units PRBC have been ordered. Acutely febrile, temp 102.5. WBC 20.9. 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 - Received Cytoxan and CHOP (cyclophosphamide, doxorubicin, vincristine and prednisone) - Subsequently, also received Rituxan and EPOCH (cyclophosphamide, doxorubicin, etoposide, vincristine, prednisone) - Last chemotherapy was 2 weeks prior to this admission. - Haptoglobin 617. LDH 196. Iron level 17, TIBC 105, ferritin 2200. - Heme/onc following. Sepsis (presence of leukocytosis with mild bandemia, fever, tachycardia and tachypnea) suspect secondary to immunosuppression from chemotherapy vs cough vs PNA Bilateral pneumonia - On admission, WBC 20.7, temp 102.5, HR 124, RR 22. Lactic acid 1.1. - WBC is elevated 14.2 --> 20.0 - Status post 3 L NS bolus in ED. Continue on maintenance IVF NS @ 100 ml/ hr. - CXR shows bilateral infiltrates CT Chest shows bilateral infiltrates as well. - Supplemental O2 to keep sats > 90%. - Blood cultures growing MRSA, GPC. - ID is following. Currently on Cefepime and Vancomycin and azithromycin. - s/p Port removal today. C. difficile positive. flagyl has been switched to po vanco due to increase leukocytosis and increase BM's Microcytic hypochromic anemia: Hemoglobin 6.6/Hematocrit 19.6 on presentation. Hemoccult negative. 2 units PRBC ordered and infusing. - Hgb improved after transfusion. Hgb 6.6 --> 10.7--> 11.1 Hypokalemia: K 2.7 on presentation. Patient received multiple doses of IV KCL - replace potassium as needed Hypomagnesemia: 1.2 on presentation. Total of 4 g IV Magnesium sulfate given. Repeat Mg 2.3. Hypertension, chronic: BP 100/66 currently. No need for any antihypertensives. History of Pulmonary embolism - Had massive PE requiring tPA in April 2017. Warfarin resumed Supratherapeutic INR due to Warfarin - No active bleeding. INR was 6.2 on 09/06. Patient received vitamin K 2.5 mg. INR 1.4 on 09/08/2017. monitor INR. pharmacy consult in place DVT Prophylaxis: SCDs. on coumadin Discharge Planning d/c pending further work-up and clinical improvement Problem Qualifiers (1) Non-Hodgkin lymphoma: Qualified Codes: C83.38 - Diffuse large b-cell lymphoma, lymph nodes of multiple sites (2) Anemia: Qualified Codes: D64.9 - Anemia, unspecified Cristina Chapman MD Sep 09, 2017 12:50
[2017-09-09] MEDS: DRONABINOL 2.5 MG CAP PO SCH ×2 (12:55→16:00)
[2017-09-09] MEDS: ENOXAPARIN SODIUM 60 MG/0.6 ML SYRINGE SQ SCH ×2 (12:55→21:00)
[2017-09-09] MEDS: VANCOMYCIN 500 MG VIAL (FOR ORAL USE ONLY) PO SCH ×2 (12:55→17:59)
[2017-09-09 13:13] LABS: AUTOMATED NEUTROPHIL # 19.8 TH/MM3 (1.8-7.7); BASOPHIL % 0.1 % (0.0-2.0); EOSINOPHIL % 0.1 % (0.0-4.0); HEMATOCRIT 34.6 % (39.0-51.0); HEMOGLOBIN 11.2 GM/DL (13.0-17.0); LYMPHOCYTE # 0.6 TH/MM3 (1.0-4.8); MEAN CELL VOLUME 82.1 FL (80.0-100.0); MEAN CORPUSCULAR HEMOGLOBIN 26.4 PG (27.0-34.0); MEAN CORPUSCULAR HGB CONC 32.2 % (32.0-36.0); MONO % 4.3 % (0.0-8.0); MONOCYTE # 0.9 TH/MM3 (0-0.9); NEUT % 92.5 % (16.0-70.0); PLATELET COUNT 114 TH/MM3 (150-450); RED BLOOD COUNT 4.22 MIL/MM3 (4.50-5.90); RED CELL DISTRIBUTION WIDTH 19.2 % (11.6-17.2); WHITE BLOOD COUNT 21.3 TH/MM3 (4.0-11.0)
[2017-09-09 13:42] LABS: ALBUMIN 1.4 GM/DL (3.4-5.0); CALCIUM 7.5 MG/DL (8.5-10.1); CHLORIDE 114 MEQ/L (98-107); SODIUM (NA) 141 MEQ/L (136-145)
[2017-09-09 13:49] LABS: AST (GOT) 13 U/L (15-37); BICARBONATE 18.3 MEQ/L (21.0-32.0); GLOMERULAR FILTRATION RATE 214 ML/MIN (>89); GLUCOSE,RANDOM 91 MG/DL (74-106)
[2017-09-09 13:50] LABS: BLOOD UREA NITROGEN 5 MG/DL (7-18)
[2017-09-09 13:55] LABS: ALKALINE PHOSPHATASE 92 U/L (45-117); ALT (GPT) LESS THAN 6 U/L (12-78); TOTAL BILIRUBIN ADULT 0.5 MG/DL (0.2-1.0); TOTAL PROTEIN 4.2 GM/DL (6.4-8.2)
[2017-09-09 14:42] LABS: MYCOPLASMA PNEUMONIAE IGG Equivocal (Negative); MYCOPLASMA PNEUMONIAE IGM Negative (Negative)
[2017-09-09] MEDS: AZITHROMYCIN INJ 500 MG in SODIUM CHLOR 0.9% 250 ML INJ 250 ML IV SCH (14:47)
[2017-09-09] MEDS ORDERED: WARFARIN SOD 5 MG TAB PO SCH (16:00)
[2017-09-09] MEDS ORDERED: PHARMACY ORDERED LAB ONE (21:45)
[2017-09-09 22:28] LABS: PROTHROMBIN TIME - PATIENT 22.2 SEC (9.8-11.6)
[2017-09-10] VITALS (11 sets, daily range): BP systolic 104–136; BP diastolic 64–83; PULSE 75–87; RESP 16–20; TEMP 97.6–98.8; O2SAT 98–100
[2017-09-10] MEDS: SODIUM CHLOR 0.9% 1000 ML INJ 1,000 ML IV SCH ×3 (00:22→16:51)
[2017-09-10] MEDS: CEFEPIME INJ 2,000 MG in SODIUM CHLORIDE 0.9% INJ 100 ML IV SCH ×4 (00:22→23:11)
[2017-09-10] MEDS: VANCOMYCIN 500 MG VIAL (FOR ORAL USE ONLY) PO SCH ×5 (00:22→23:10)
[2017-09-10] MEDS: VANCOMYCIN 1,000 MG/NS 250 ML IV SCH ×4 (05:31→16:00)
[2017-09-10] MEDS: SODIUM CHLORIDE 0.9% FLUSH 10 ML FLUSH IV FLUSH SCH ×2 (07:39→19:39)
--- NOTE | 2017-09-10 10:32 | PD.ONC.PN ---
Subjective Subjective Remarks Afebrile overnight Patient asleep in bed on approach Reports he is overall feeling better Has not been working with physical therapy due to having to wear a brief We discussed it would be very important for him to work on his physical strength while he is recovering from the infection Objective Data Date Time Temp Pulse Resp B/P (MAP) Pulse Ox O2 Delivery O2 Flow Rate FiO2 09/10/17 08:00 77 09/10/17 08:00 98.5 77 18 136/70 (92) 100 09/10/17 04:01 87 09/10/17 00:00 97.6 75 16 122/81 (95) 99 09/10/17 00:00 81 09/09/17 21:34 97 09/09/17 20:00 83 09/09/17 18:03 99.0 64 18 104/58 (73) 98 09/09/17 12:54 98.4 70 20 112/68 (83) 100 09/10/17 09/10/17 09/10/17 07:00 15:00 23:00 Intake Total 2738 ml Output Total 300 ml Balance 2438 ml Result Diagram: 09/09/17 1253 09/09/17 1253 Laboratory Results Laboratory Tests Test 09/09/17 12:53 09/09/17 21:40 White Blood Count 21.3 TH/MM3 Red Blood Count 4.22 MIL/MM3 Hemoglobin 11.2 GM/DL Hematocrit 34.6 % Mean Corpuscular Volume 82.1 FL Mean Corpuscular Hemoglobin 26.4 PG Mean Corpuscular Hemoglobin Concent 32.2 % Red Cell Distribution Width 19.2 % Platelet Count 114 TH/MM3 Mean Platelet Volume 9.0 FL Neutrophils (%) (Auto) 92.5 % Lymphocytes (%) (Auto) 3.0 % Monocytes (%) (Auto) 4.3 % Eosinophils (%) (Auto) 0.1 % Basophils (%) (Auto) 0.1 % Neutrophils # (Auto) 19.8 TH/MM3 Lymphocytes # (Auto) 0.6 TH/MM3 Monocytes # (Auto) 0.9 TH/MM3 Eosinophils # (Auto) 0.0 TH/MM3 Basophils # (Auto) 0.0 TH/MM3 CBC Comment DIFF FINAL Differential Comment Blood Urea Nitrogen 5 MG/DL Creatinine 0.50 MG/DL Random Glucose 91 MG/DL Total Protein 4.2 GM/DL Albumin 1.4 GM/DL Calcium Level 7.5 MG/DL Alkaline Phosphatase 92 U/L Aspartate Amino Transf (AST/SGOT) 13 U/L Alanine Aminotransferase (ALT/SGPT) LESS THAN 6 U/L Total Bilirubin 0.5 MG/DL Sodium Level 141 MEQ/L Potassium Level 3.5 MEQ/L Chloride Level 114 MEQ/L Carbon Dioxide Level 18.3 MEQ/L Anion Gap 9 MEQ/L Estimat Glomerular Filtration Rate 214 ML/MIN Prothrombin Time 22.2 SEC Prothromb Time International Ratio 2.0 RATIO Culture Results Microbiology Date/Time Source Procedure Growth Status 09/09/17 21:40 Blood Peripheral Aerobic Blood Culture Pending Received 09/09/17 21:40 Blood Peripheral Anaerobic Blood Culture Pending Received 09/09/17 21:35 Blood Peripheral Aerobic Blood Culture Pending Received 09/09/17 21:35 Blood Peripheral Anaerobic Blood Culture Pending Received Administered Medications Medications (Trade) Dose Ordered Sig/Shyla Route PRN Reason Start Time Stop Time Status Last Admin Dose Admin Sodium Chloride 1,000 ml @ 100 mls/hr Q10H IV 09/06/17 13:00 09/10/17 00:22 Sodium Chloride (NS Flush) 2 ml UNSCH PRN IV FLUSH FLUSH AFTER USING IV ACCESS 09/06/17 13:00 09/08/17 22:44 Sodium Chloride (NS Flush) 2 ml BID IV FLUSH 09/06/17 21:00 09/10/17 07:39 Acetaminophen (Tylenol) 650 mg Q4H PRN PO headache, fever, pain 1-4 09/06/17 13:00 09/06/17 19:41 Cefepime HCl 2000 mg/Sodium Chloride 100 ml @ 200 mls/hr Q8H IV 09/06/17 16:00 09/10/17 07:39 Dronabinol (Marinol) 2.5 mg BID@11,16 PO 09/07/17 11:00 09/09/17 12:55 Azithromycin 500 mg/Sodium Chloride 250 ml @ 250 mls/hr Q24H IV 09/07/17 16:00 09/09/17 14:47 Vancomycin HCl 1000 mg/Sodium Chloride 250 ml @ 250 mls/hr Q12H IV 09/09/17 04:00 09/10/17 05:31 Warfarin Sodium (Coumadin) 5 mg DAILY@1600 PO 09/09/17 16:00 Future Hold 09/09/17 14:47 Vancomycin HCl (VANCOMYCIN for oral use only) 125 mg Q6H PO 09/09/17 12:00 09/10/17 05:30 Objective Remarks GENERAL: Chronically ill appearing male lying in bed asleep on approach. SKIN: Warm and dry. HEAD: Normocephalic. EYES: No injection or drainage. NECK: Supple, trachea midline. CARDIOVASCULAR: Regular rate and rhythm RESPIRATORY: Breath sounds equal bilaterally. No accessory muscle use. GASTROINTESTINAL: Abdomen soft, non-tender, nondistended. EXTREMITIES: No cyanosis. No edema. NEUROLOGICAL: Awakens easily to verbal stimuli. Assessment/Plan Problem List: (1) C. difficile colitis ICD Codes: A04.7 - Enterocolitis due to Clostridium difficile Status: Resolved Plan: --on Flagyl and po vancomycin (2) Sepsis ICD Codes: A41.9 - Sepsis, unspecified organism Plan: --ID following --BC + GPC --++ vanco, cefepime, azithromycin (3) Pneumonia ICD Codes: J18.9 - Pneumonia, unspecified organism Plan: --on antibiotics --ID following. (4) Normocytic anemia ICD Codes: D64.9 - Anemia, unspecified Status: Acute Plan: --monitor and transfuse as needed. (5) Pulmonary emboli ICD Codes: I26.99 - Other pulmonary embolism without acute cor pulmonale Status: Chronic Plan: --on coumadin (6) Non-Hodgkin lymphoma ICD Codes: C85.90 - Non-Hodgkin lymphoma, unspecified, unspecified site Status: Acute Plan: --will hold chemotherapy this week d/t admission for pneumonia Assessment 47y/o male with high-grade diffuse large B-cell lymphoma admitted for pneumonia and nausea/vomiting as well as anemia. History of pulmonary embolism currently on anticoagulation. Hypertension. Protein-calorie malnutrition. Plan 1. Awaiting labs today 2. Continue physical therapy for strengthening 3. Continue antibiotics per infectious disease 4. Monitor CBC, PT/INR Attending Statement The exam, history, and the medical decision-making described in the above note were completed with the assistance of the mid-level provider. I reviewed and agree with the findings presented. I attest that I had a [id number] encounter with the patient on the same day, and personally performed and documented my assessment and findings in the medical record. Diarrhea improving. Still weak. Leukocytosis improved. Continue abx per ID. Continue coumadin. Too weak for chemo at this time. Problem Qualifiers (1) Non-Hodgkin lymphoma: Qualified Codes: C83.38 - Diffuse large b-cell lymphoma, lymph nodes of multiple sites Tia Montenegro Sep 10, 2017 10:32 Ruslan Connelly MD Sep 10, 2017 18:47
[2017-09-10] MEDS: DRONABINOL 2.5 MG CAP PO SCH ×2 (10:57→16:49)
--- NOTE | 2017-09-10 11:01 | HHI.PR ---
Subjective Remarks Pt has no complaints. states he has been unable to work w PT since having diarrhea. Has had 3 loose stools today. denies any abdominal pain, nausea or vomiting. Objective Vitals Vital Signs Date Time Temp Pulse Resp B/P (MAP) Pulse Ox O2 Delivery O2 Flow Rate FiO2 09/10/17 08:00 77 09/10/17 08:00 98.5 77 18 136/70 (92) 100 09/10/17 04:01 87 09/10/17 00:00 97.6 75 16 122/81 (95) 99 09/10/17 00:00 81 09/09/17 21:34 97 09/09/17 20:00 83 09/09/17 18:03 99.0 64 18 104/58 (73) 98 09/09/17 12:54 98.4 70 20 112/68 (83) 100 I/O 09/09/17 09/09/17 09/09/17 09/10/17 09/10/17 09/10/17 07:00 15:00 23:00 07:00 15:00 23:00 Intake Total 1660 ml 100 ml 1320 ml 2738 ml Output Total 300 ml 850 ml 300 ml Balance 1360 ml 100 ml 470 ml 2438 ml Intake Oral 240 ml 720 ml IV Total 1420 ml 100 ml 600 ml 2738 ml Output Urine Total 300 ml 850 ml 300 ml # Bowel Movements 3 1 2 Result Diagram: 09/09/17 1253 09/09/17 1253 Imaging Last Impressions Port Line Revision 09/08/17 0000 Signed Impressions: Service Date/Time: Friday, September 08, 2017 00:00 - CONCLUSION: Uncomplicated port removal as above. Adama Briceño MD Chest X-Ray 09/06/17 0000 Signed Impressions: Service Date/Time: Wednesday, September 06, 2017 14:57 - CONCLUSION: Patchy interstitial infiltrates left lower lung. The lungs are otherwise clear. Bryon Evans MD Chest CT 09/06/17 0000 Signed Impressions: Service Date/Time: Wednesday, September 06, 2017 15:57 - CONCLUSION: 1. Patchy bilateral air space consolidation in both lung bases. Differential diagnosis includes bronchopneumonia and aspiration. Small pleural effusions improved from April. 2. Extensive mediastinal adenopathy also improved from April. Travis Ruffin MD Objective Remarks GENERAL: Alert, laying in bed EYES: EOMI. NECK: trachea midline. No JVD or lymphadenopathy. CARDIOVASCULAR: Regular rate and rhythm without murmurs RESPIRATORY: decreased breath sounds at the bases GASTROINTESTINAL: Abdomen soft, non-tender, nondistended. MUSCULOSKELETAL: No edema. Procedures None. A/P Problem List: (1) Non-Hodgkin lymphoma ICD Code: C85.90 - Non-Hodgkin lymphoma, unspecified, unspecified site Status: Acute (2) Anemia ICD Code: D64.9 - Anemia, unspecified Status: Acute (3) Poor appetite ICD Code: R63.0 - Anorexia Status: Acute Assessment and Plan Mr. Werner is a 47-year-old male patient with a known medical history of non- Hodgkin B-cell lymphoma, HTN and history of PE who presented to the ED with complaints of generalized weakness, nausea, vomiting and cough x 1 week. Hemoglobin 6.6 on presentation to ED, 2 units PRBC have been ordered. Acutely febrile, temp 102.5. WBC 20.9. 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 - Received Cytoxan and CHOP (cyclophosphamide, doxorubicin, vincristine and prednisone) - Subsequently, also received Rituxan and EPOCH (cyclophosphamide, doxorubicin, etoposide, vincristine, prednisone) - Last chemotherapy was 2 weeks prior to this admission. - Haptoglobin 617. LDH 196. Iron level 17, TIBC 105, ferritin 2200. - Heme/onc following. Sepsis (presence of leukocytosis with mild bandemia, fever, tachycardia and tachypnea) suspect secondary to immunosuppression from chemotherapy vs cough vs PNA Bilateral pneumonia - On admission, WBC 20.7, temp 102.5, HR 124, RR 22. Lactic acid 1.1. - WBC is elevated 14.2 --> 21.3 - Status post 3 L NS bolus in ED. Continue on maintenance IVF NS @ 100 ml/ hr. - CXR shows bilateral infiltrates CT Chest shows bilateral infiltrates as well. - Supplemental O2 to keep sats > 90%. - Blood cultures growing MRSA, GPC. Repeat blood cx pending - ID is following. Currently on Cefepime and Vancomycin and azithromycin. - s/p Port removal today. C. difficile positive. flagyl has been switched to po vanco due to increase leukocytosis and increase BM's Microcytic hypochromic anemia: Hemoglobin 6.6/Hematocrit 19.6 on presentation. Hemoccult negative. 2 units PRBC ordered and infusing. - Hgb improved after transfusion. Hgb 6.6 --> 10.7--> 11.2 Hypokalemia: K 2.7 on presentation. Patient received multiple doses of IV KCL - replace potassium as needed Hypomagnesemia: 1.2 on presentation. Total of 4 g IV Magnesium sulfate given. Repeat Mg 2.3. Hypertension, chronic: BP 100/66 currently. No need for any antihypertensives. History of Pulmonary embolism - Had massive PE requiring tPA in April 2017. on Warfarin Supratherapeutic INR due to Warfarin - No active bleeding. INR was 6.2 on 09/06. Patient received vitamin K 2.5 mg. INR 2.0 . monitor INR. pharmacy following for coumadin management DVT Prophylaxis: SCDs. on coumadin Discharge Planning d/c pending further work-up and clinical improvement on multiple IV abx for MRSA bacteremia and po vanco for C. Diff Problem Qualifiers (1) Non-Hodgkin lymphoma: Qualified Codes: C83.38 - Diffuse large b-cell lymphoma, lymph nodes of multiple sites (2) Anemia: Qualified Codes: D64.9 - Anemia, unspecified Cristina Chapman MD Sep 10, 2017 11:00
--- NOTE | 2017-09-10 12:51 | HHI.IDPN ---
Subjective Subjective Remarks diarrhea better no fever On RA Antibiotics vanco IV cefepime azithro flagyl Allergies: Coded Allergies: Milk Containing Products (Verified Allergy, Mild, diarrhea, 06/11/17) Objective . Vital Signs Date Time Temp Pulse Resp B/P (MAP) Pulse Ox O2 Delivery O2 Flow Rate FiO2 09/10/17 12:00 98.8 80 20 127/83 (98) 100 09/10/17 08:00 77 09/10/17 08:00 98.5 77 18 136/70 (92) 100 09/10/17 04:01 87 09/10/17 00:00 97.6 75 16 122/81 (95) 99 09/10/17 00:00 81 09/09/17 21:34 97 09/09/17 20:00 83 09/09/17 18:03 99.0 64 18 104/58 (73) 98 09/09/17 12:54 98.4 70 20 112/68 (83) 100 . Laboratory Tests Test 09/09/17 12:53 White Blood Count 21.3 TH/MM3 Red Blood Count 4.22 MIL/MM3 Hemoglobin 11.2 GM/DL Hematocrit 34.6 % Mean Corpuscular Volume 82.1 FL Mean Corpuscular Hemoglobin 26.4 PG Mean Corpuscular Hemoglobin Concent 32.2 % Red Cell Distribution Width 19.2 % Platelet Count 114 TH/MM3 Mean Platelet Volume 9.0 FL Neutrophils (%) (Auto) 92.5 % Lymphocytes (%) (Auto) 3.0 % Monocytes (%) (Auto) 4.3 % Eosinophils (%) (Auto) 0.1 % Basophils (%) (Auto) 0.1 % Neutrophils # (Auto) 19.8 TH/MM3 Lymphocytes # (Auto) 0.6 TH/MM3 Monocytes # (Auto) 0.9 TH/MM3 Eosinophils # (Auto) 0.0 TH/MM3 Basophils # (Auto) 0.0 TH/MM3 CBC Comment DIFF FINAL Differential Comment Laboratory Tests Test 09/09/17 00:01 09/09/17 12:53 Potassium Level 4.2 MEQ/L 3.5 MEQ/L Blood Urea Nitrogen 5 MG/DL Creatinine 0.50 MG/DL Random Glucose 91 MG/DL Total Protein 4.2 GM/DL Albumin 1.4 GM/DL Calcium Level 7.5 MG/DL Alkaline Phosphatase 92 U/L Aspartate Amino Transf (AST/SGOT) 13 U/L Alanine Aminotransferase (ALT/SGPT) LESS THAN 6 U/L Total Bilirubin 0.5 MG/DL Sodium Level 141 MEQ/L Chloride Level 114 MEQ/L Carbon Dioxide Level 18.3 MEQ/L Anion Gap 9 MEQ/L Estimat Glomerular Filtration Rate 214 ML/MIN Microbiology Date/Time Source Procedure Growth Status 09/09/17 21:40 Blood Peripheral Aerobic Blood Culture - Preliminary NO GROWTH IN 1 DAY Resulted 09/09/17 21:40 Blood Peripheral Anaerobic Blood Culture - Preliminary NO GROWTH IN 1 DAY Resulted 09/09/17 21:35 Blood Peripheral Aerobic Blood Culture - Preliminary NO GROWTH IN 1 DAY Resulted 09/09/17 21:35 Blood Peripheral Anaerobic Blood Culture - Preliminary NO GROWTH IN 1 DAY Resulted Imaging Last Impressions Port Line Revision 09/08/17 0000 Signed Impressions: Service Date/Time: Friday, September 08, 2017 00:00 - CONCLUSION: Uncomplicated port removal as above. Adama Briceño MD Chest X-Ray 09/06/17 0000 Signed Impressions: Service Date/Time: Wednesday, September 06, 2017 14:57 - CONCLUSION: Patchy interstitial infiltrates left lower lung. The lungs are otherwise clear. Bryon Evans MD Chest CT 09/06/17 0000 Signed Impressions: Service Date/Time: Wednesday, September 06, 2017 15:57 - CONCLUSION: 1. Patchy bilateral air space consolidation in both lung bases. Differential diagnosis includes bronchopneumonia and aspiration. Small pleural effusions improved from April. 2. Extensive mediastinal adenopathy also improved from April. Travis Ruffin MD Physical Exam CONSTITUTIONAL/GENERAL: This is a thin poorly nourished chronically ill appearing patient, in no apparent distress. Breathes better , off O2 TUBES/LINES/DRAINS: PORT removed, dressing in place SKIN: No jaundice, rashes, or lesions. Skin temperature appropriate. Not diaphoretic. Alopecia ENT: Hearing grossly normal. Nose without bleeding or purulent drainage. Oral mucosae w/o mucositis poor dentition CARDIOVASCULAR: Regular rate and rhythm without murmurs, gallops, or rubs. No JVD. Peripheral pulses symmetric. RESPIRATORY/CHEST: Symmetric, unlabored respirations. Clear to auscultation. Breath sounds equal bilaterally. No wheezes, rales, or rhonchi. GASTROINTESTINAL: Abdomen soft, non-tender, midly distended. No hepato- splenomegaly, or palpable masses. No guarding. Bowel sounds present. MUSCULOSKELETAL: Extremities without clubbing, cyanosis, or edema. NEUROLOGICAL: Awake and alert. Motor and sensory grossly within normal limits. Follows commands. Clear speech. Moves all extremities. PSYCHIATRIC: No obvious anxiety/depression. no apparent hallucinations or other psychotic thought process. Assessment & Plan Remarks Assessment and Plan NHL, awaiting chemo MRSA sepsis - source PORT SP PORT removal ? Atypical PNA C.diff, prior exposure to levaquine cont vanco US of R neck 2 D echo fu repeat blood clx cont cefepime for now repeat CXR cont azithromycin x 5 days con PO vancomycin x 14 days DC ORAL FLAGYL ASP: vanco was chosen over flagyl 2/2 clinical idication of severe disease: 9 BMs/day, WBC 20 K Kelsie Hong MD Sep 10, 2017 12:51
[2017-09-10 12:52] LABS: AUTOMATED NEUTROPHIL # 13.5 TH/MM3 (1.8-7.7); BASOPHIL # 0.1 TH/MM3 (0-0.2); BASOPHIL % 0.4 % (0.0-2.0); EOSINOPHIL % 0.2 % (0.0-4.0); HEMATOCRIT 36.1 % (39.0-51.0); HEMOGLOBIN 11.5 GM/DL (13.0-17.0); LYMPH % 5.1 % (9.0-44.0); LYMPHOCYTE # 0.8 TH/MM3 (1.0-4.8); MEAN CELL VOLUME 81.6 FL (80.0-100.0); MEAN CORPUSCULAR HEMOGLOBIN 26.1 PG (27.0-34.0); MEAN CORPUSCULAR HGB CONC 31.9 % (32.0-36.0); MEAN PLATELET VOLUME 9.1 FL (7.0-11.0); MONO % 4.2 % (0.0-8.0); MONOCYTE # 0.6 TH/MM3 (0-0.9); NEUT % 90.1 % (16.0-70.0); PLATELET COUNT 176 TH/MM3 (150-450); RED BLOOD COUNT 4.42 MIL/MM3 (4.50-5.90); RED CELL DISTRIBUTION WIDTH 19.5 % (11.6-17.2)
[2017-09-10 13:01] LABS: INTERNATIONAL NORMALIZED RATIO 2.5 RATIO; PROTHROMBIN TIME - PATIENT 24.8 SEC (9.8-11.6)
[2017-09-10 13:17] LABS: BICARBONATE 18.2 MEQ/L (21.0-32.0); CALCIUM 7.6 MG/DL (8.5-10.1); CREATININE 0.5 MG/DL (0.60-1.30)
--- NOTE | 2017-09-10 15:08 | RADRPT ---
EXAM DATE/TIME: 09/10/2017 13:56 [facility] COMPARISON: No previous studies available for comparison. INDICATIONS : Right arm swelling. MEDICAL HISTORY : Hypertension. A fib. Dyspnea. Nonhodgkins lymphoma. Pulmonary embolism. SURGICAL HISTORY : None. ENCOUNTER: Initial ACUITY: 1 day PAIN SCORE: 4/10 LOCATION: Right arm. FINDINGS: There is nonocclusive thrombus in the jugular vein. There is spontaneous flow documented in the brach ial, basilic, cephalic, axillary, and subclavian veins. The vessels are compressible and augmentatio n response is documented. No filling defects are seen. The flow is phasic with respiration. There is a solid 4.4 x 3 x 2.1 cm inhomogeneous mass in the supraclavicular region. CONCLUSION: 1. Nonocclusive thrombus in the jugular vein. 2. The other vessels are patent. 3. Solid lobular mass in the supraclavicular region consistent with adenopathy in this patient with h istory of lymphoma. Goldy Suarez MD on September 10, 2017 at 15:03 Board Certified Radiologist. This report was verified electronically.
[2017-09-10] MEDS ORDERED: PHARMACY ORDERED LAB ONE (15:45)
[2017-09-10] MEDS: AZITHROMYCIN INJ 500 MG in SODIUM CHLOR 0.9% 250 ML INJ 250 ML IV SCH (16:00)
[2017-09-11] VITALS (9 sets, daily range): BP systolic 117–150; BP diastolic 81–91; PULSE 66–77; RESP 14–16; TEMP 97.7–98.4; O2SAT 96–100
[2017-09-11] MEDS: SODIUM CHLOR 0.9% 1000 ML INJ 1,000 ML IV SCH (00:07)
[2017-09-11] MEDS ORDERED: PHARMACY ORDERED LAB ONE (03:45)
[2017-09-11] MEDS: VANCOMYCIN 500 MG VIAL (FOR ORAL USE ONLY) PO SCH ×4 (04:32→22:40)
[2017-09-11] MEDS: VANCOMYCIN 1,000 MG/NS 250 ML IV SCH ×4 (05:25→19:07)
[2017-09-11 06:36] LABS: BICARBONATE 17.3 MEQ/L (21.0-32.0); CALCIUM 7.4 MG/DL (8.5-10.1); CREATININE 0.53 MG/DL (0.60-1.30)
[2017-09-11 06:57] LABS: CALCIUM-PROTEIN CORRECTED 8.8 MG/DL (8.5-10.1); TOTAL PROTEIN 4.7 GM/DL (6.4-8.2)
[2017-09-11 08:40] LABS: AUTOMATED NEUTROPHIL # 10.2 TH/MM3 (1.8-7.7); BASOPHIL % 0.2 % (0.0-2.0); EOSINOPHIL % 0.3 % (0.0-4.0); HEMATOCRIT 33.2 % (39.0-51.0); HEMOGLOBIN 10.6 GM/DL (13.0-17.0); INTERNATIONAL NORMALIZED RATIO 2.8 RATIO; LYMPH % 5.9 % (9.0-44.0); LYMPHOCYTE # 0.7 TH/MM3 (1.0-4.8); MEAN CELL VOLUME 84.8 FL (80.0-100.0); MEAN CORPUSCULAR HGB CONC 31.9 % (32.0-36.0); MEAN PLATELET VOLUME 8.8 FL (7.0-11.0); MONO % 6.1 % (0.0-8.0); MONOCYTE # 0.7 TH/MM3 (0-0.9); NEUT % 87.5 % (16.0-70.0); PLATELET COUNT 161 TH/MM3 (150-450); PROTHROMBIN TIME - PATIENT 28.1 SEC (9.8-11.6); RED BLOOD COUNT 3.92 MIL/MM3 (4.50-5.90); RED CELL DISTRIBUTION WIDTH 19.8 % (11.6-17.2); WHITE BLOOD COUNT 11.7 TH/MM3 (4.0-11.0)
[2017-09-11] MEDS ORDERED: POTASSIUM CHLOR 20 MEQ PREMIX 100 ML IV ONE (09:00)
[2017-09-11] MEDS: POTASSIUM CHLORIDE 20 MEQ CONTROLLED RELEASE TAB PO SCH ×2 (09:17→22:39)
[2017-09-11] MEDS: LACTOBACILLUS ACIDOPHILUS TAB PO SCH ×3 (09:17→18:18)
[2017-09-11] MEDS: CEFEPIME INJ 2,000 MG in SODIUM CHLORIDE 0.9% INJ 100 ML IV SCH ×3 (09:18→22:40)
--- NOTE | 2017-09-11 13:19 | PD.ONC.PN ---
Subjective Subjective Remarks Afebrile Feels tired Complaining of pain in his arm where potassium is infusing No other acute complaints Objective Data Date Time Temp Pulse Resp B/P (MAP) Pulse Ox O2 Delivery O2 Flow Rate FiO2 09/11/17 10:25 96 09/11/17 09:25 97.8 70 14 150/91 (110) 99 09/11/17 08:00 66 09/11/17 04:08 98.4 76 16 127/81 (96) 100 09/10/17 23:09 98.3 78 16 117/78 (91) 98 09/10/17 20:00 79 09/10/17 19:42 98.4 76 16 104/66 (79) 100 09/10/17 17:26 99 21 09/10/17 16:00 98.6 78 20 120/64 (82) 100 09/10/17 15:00 76 09/11/17 09/11/17 09/11/17 07:00 15:00 23:00 Intake Total 2430 ml Output Total 650 ml Balance 1780 ml Result Diagram: 09/11/17 0755 09/11/17 0523 Laboratory Results Laboratory Tests Test 09/11/17 05:23 09/11/17 07:55 Blood Urea Nitrogen 3 MG/DL Creatinine 0.53 MG/DL Random Glucose 81 MG/DL Total Protein 4.7 GM/DL Calcium Level 7.4 MG/DL Sodium Level 142 MEQ/L Potassium Level 2.9 MEQ/L Chloride Level 115 MEQ/L Carbon Dioxide Level 17.3 MEQ/L Anion Gap 10 MEQ/L Estimat Glomerular Filtration Rate 200 ML/MIN Protein Corrected Calcium 8.8 MG/DL Vancomycin Level Trough 18.4 MCG/ML White Blood Count 11.7 TH/MM3 Red Blood Count 3.92 MIL/MM3 Hemoglobin 10.6 GM/DL Hematocrit 33.2 % Mean Corpuscular Volume 84.8 FL Mean Corpuscular Hemoglobin 27.0 PG Mean Corpuscular Hemoglobin Concent 31.9 % Red Cell Distribution Width 19.8 % Platelet Count 161 TH/MM3 Mean Platelet Volume 8.8 FL Neutrophils (%) (Auto) 87.5 % Lymphocytes (%) (Auto) 5.9 % Monocytes (%) (Auto) 6.1 % Eosinophils (%) (Auto) 0.3 % Basophils (%) (Auto) 0.2 % Neutrophils # (Auto) 10.2 TH/MM3 Lymphocytes # (Auto) 0.7 TH/MM3 Monocytes # (Auto) 0.7 TH/MM3 Eosinophils # (Auto) 0.0 TH/MM3 Basophils # (Auto) 0.0 TH/MM3 CBC Comment DIFF FINAL Differential Comment Prothrombin Time 28.1 SEC Prothromb Time International Ratio 2.8 RATIO Culture Results Microbiology Date/Time Source Procedure Growth Status 09/09/17 21:40 Blood Peripheral Aerobic Blood Culture - Preliminary Gram Positive Cocci Resulted 09/09/17 21:40 Blood Peripheral Anaerobic Blood Culture - Preliminary NO GROWTH IN 2 DAYS Resulted 09/09/17 21:35 Blood Peripheral Aerobic Blood Culture - Preliminary S. Aureus Mrsa Resulted 09/09/17 21:35 Anaerobic Blood Culture - Preliminary Gram Positive Cocci Resulted Administered Medications Medications (Trade) Dose Ordered Sig/Shyla Route PRN Reason Start Time Stop Time Status Last Admin Dose Admin Sodium Chloride (NS Flush) 2 ml UNSCH PRN IV FLUSH FLUSH AFTER USING IV ACCESS 09/06/17 13:00 09/08/17 22:44 Sodium Chloride (NS Flush) 2 ml BID IV FLUSH 09/06/17 21:00 09/10/17 19:39 Acetaminophen (Tylenol) 650 mg Q4H PRN PO headache, fever, pain 1-4 09/06/17 13:00 09/06/17 19:41 Cefepime HCl 2000 mg/Sodium Chloride 100 ml @ 200 mls/hr Q8H IV 09/06/17 16:00 09/11/17 09:18 Dronabinol (Marinol) 2.5 mg BID@11,16 PO 09/07/17 11:00 09/10/17 16:49 Azithromycin 500 mg/Sodium Chloride 250 ml @ 250 mls/hr Q24H IV 09/07/17 16:00 09/10/17 16:00 Vancomycin HCl 1000 mg/Sodium Chloride 250 ml @ 250 mls/hr Q12H IV 09/09/17 04:00 09/11/17 05:25 Warfarin Sodium (Coumadin) 5 mg DAILY@1600 PO 09/09/17 16:00 Future Hold 09/09/17 14:47 Vancomycin HCl (VANCOMYCIN for oral use only) 125 mg Q6H PO 09/09/17 12:00 09/11/17 04:32 Potassium Chloride (KCl) 20 meq Q12HR PO 09/11/17 09:00 09/11/17 09:17 Lactobacillus Acidophilus (Lactinex) 1 tab TID PO 09/11/17 09:00 09/11/17 09:17 Objective Remarks GENERAL: Chronically ill appearing male resting in bed watching TV in no acute distress SKIN: Warm and dry. HEAD: Normocephalic. EYES: No injection or drainage. NECK: Supple, trachea midline. LYMPHADENOPATHY: Left axillary adenopathy CARDIOVASCULAR: Regular rate and rhythm RESPIRATORY: Breath sounds equal bilaterally. No accessory muscle use. GASTROINTESTINAL: Abdomen soft, non-tender, nondistended. EXTREMITIES: No cyanosis. No edema. NEUROLOGICAL: Awakens easily to verbal stimuli. Assessment/Plan Problem List: (1) C. difficile colitis ICD Codes: A04.7 - Enterocolitis due to Clostridium difficile Status: Resolved Plan: --on cefepime, azithromycin and po as well as IV vancomycin (2) Sepsis ICD Codes: A41.9 - Sepsis, unspecified organism Plan: --ID following --BC + GPC --++ vanco, cefepime, azithromycin (3) Pneumonia ICD Codes: J18.9 - Pneumonia, unspecified organism Plan: --on antibiotics --ID following. (4) Normocytic anemia ICD Codes: D64.9 - Anemia, unspecified Status: Acute Plan: --monitor and transfuse as needed. (5) Pulmonary emboli ICD Codes: I26.99 - Other pulmonary embolism without acute cor pulmonale Status: Chronic Plan: --on coumadin -- Currently on hold as INR is increasing (6) Non-Hodgkin lymphoma ICD Codes: C85.90 - Non-Hodgkin lymphoma, unspecified, unspecified site Status: Acute Plan: --will hold chemotherapy this week d/t admission for pneumonia -- Will resume chemotherapy once patient stronger Assessment 47y/o male with high-grade diffuse large B-cell lymphoma admitted for pneumonia and nausea/vomiting as well as anemia. History of pulmonary embolism currently on anticoagulation. Hypertension. Protein-calorie malnutrition. Plan 1. INR 2.8 today; will hold Coumadin due to coagulopathy from infection 2. Discussed with patient the importance of working with physical therapy 3. Hold chemotherapy until patient stronger 4. Monitor CBC, PT/INR Attending Statement The exam, history, and the medical decision-making described in the above note were completed with the assistance of the mid-level provider. I reviewed and agree with the findings presented. I attest that I had a [id number] encounter with the patient on the same day, and personally performed and documented my assessment and findings in the medical record. Still feels weak. Diarrhea improving. US RUE + non occlusive thrombus jugular vein likely due to port which has been removed. No significant edema. Continue coumadin and INR is therapeutic. Too weak for chemo at this time. Problem Qualifiers (1) Non-Hodgkin lymphoma: Qualified Codes: C83.38 - Diffuse large b-cell lymphoma, lymph nodes of multiple sites Tia Montenegro Sep 11, 2017 13:19 Ruslan Connelly MD Sep 11, 2017 17:47
[2017-09-11] MEDS: DRONABINOL 2.5 MG CAP PO SCH ×2 (14:06→18:18)
[2017-09-11] MEDS: AZITHROMYCIN INJ 500 MG in SODIUM CHLOR 0.9% 250 ML INJ 250 ML IV SCH (16:24)
--- NOTE | 2017-09-11 16:38 | HHI.PR ---
Subjective Remarks Patient complains of fatigue and loose stools. Denies pain. Denies dyspnea. States he is a very poor appetite. Repeat blood cultures growing MRSA today. Objective Vitals Vital Signs Date Time Temp Pulse Resp B/P (MAP) Pulse Ox O2 Delivery O2 Flow Rate FiO2 09/11/17 14:23 97.7 71 14 131/85 (100) 99 09/11/17 10:25 96 09/11/17 09:25 97.8 70 14 150/91 (110) 99 09/11/17 08:00 66 09/11/17 04:08 98.4 76 16 127/81 (96) 100 09/10/17 23:09 98.3 78 16 117/78 (91) 98 09/10/17 20:00 79 09/10/17 19:42 98.4 76 16 104/66 (79) 100 09/10/17 17:26 99 21 I/O 09/10/17 09/10/17 09/10/17 09/11/17 09/11/17 09/11/17 07:00 15:00 23:00 07:00 15:00 23:00 Intake Total 2738 ml 95 ml 1785 ml 2430 ml Output Total 300 ml 425 ml 650 ml Balance 2438 ml 95 ml 1360 ml 1780 ml Intake Oral 240 ml 480 ml IV Total 2738 ml 95 ml 1545 ml 1950 ml Output Urine Total 300 ml 425 ml 650 ml # Bowel Movements 2 1 2 Result Diagram: 09/11/17 0755 09/11/17 0523 Objective Remarks GENERAL: Cachectic appearing [place] male patient. SKIN: Warm and dry. HEAD: Normocephalic. EYES: No scleral icterus. No injection or drainage. Oropharynx with thick exudates over teeth. NECK: Supple, trachea midline. No JVD or lymphadenopathy. CARDIOVASCULAR: Regular rate and rhythm without murmurs, gallops, or rubs. RESPIRATORY: Breath sounds equal bilaterally. No accessory muscle use. GASTROINTESTINAL: Abdomen soft, non-tender, nondistended. EXTREMITIES: No pedal edema. NEUROLOGICAL: Awake, alert, and oriented x 3. Non-focal. Procedures None. A/P Problem List: (1) Non-Hodgkin lymphoma ICD Code: C85.90 - Non-Hodgkin lymphoma, unspecified, unspecified site Status: Acute (2) Anemia ICD Code: D64.9 - Anemia, unspecified Status: Acute (3) Poor appetite ICD Code: R63.0 - Anorexia Status: Acute (4) Severe protein-calorie malnutrition ICD Code: E43 - Unspecified severe protein-calorie malnutrition (5) Sepsis due to methicillin resistant Staphylococcus aureus (MRSA) ICD Code: A41.02 - Sepsis due to Methicillin resistant Staphylococcus aureus (6) C. difficile colitis ICD Code: A04.7 - Enterocolitis due to Clostridium difficile Status: Resolved (7) Sepsis ICD Code: A41.9 - Sepsis, unspecified organism (8) Debility ICD Code: R53.81 - Other malaise Status: Acute Assessment and Plan Mr. Werner is a 47-year-old male patient with a known medical history of non- Hodgkin B-cell lymphoma, HTN and history of PE who presented to the ED with complaints of generalized weakness, nausea, vomiting and cough x 1 week. Hemoglobin 6.6 on presentation to ED, 2 units PRBC have been ordered. Acutely febrile, temp 102.5. WBC 20.9. 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 - Received Cytoxan and CHOP (cyclophosphamide, doxorubicin, vincristine and prednisone) - Subsequently, also received Rituxan and EPOCH (cyclophosphamide, doxorubicin, etoposide, vincristine, prednisone) - Last chemotherapy was 2 weeks prior to this admission. - Haptoglobin 617. LDH 196. Iron level 17, TIBC 105, ferritin 2200. - Heme/onc following. Sepsis (presence of leukocytosis with mild bandemia, fever, tachycardia and tachypnea) suspect secondary to immunosuppression from chemotherapy vs cough vs PNA, MRSA bacteremia Bilateral pneumonia - - s/p Port removal 09/10. - on maintenance IVF NS @ 100 ml/hr. - CXR shows bilateral infiltrates CT Chest shows bilateral infiltrates as well. - Blood cultures growing MRSA - ID is following- Cefepime and Vancomycin and azithromycin. C. difficile positive. -C. difficile colitis On by mouth vancomycin per ID. Add Lactinex. Still has significant loose stools. Microcytic hypochromic anemia: Hemoglobin 6.6/Hematocrit 19.6 on presentation. Hemoccult negative. 2 units PRBC ordered and infusing. - Hgb improved after transfusion. Hgb 6.6 --> 10.7--> 11.2 Severe protein calorie malnutrition due to the colitis, chronically ill, poor appetite - add ensure to diet. Hypokalemia: K 2.7 - given IV and by mouth potassium today. Repeat BMP in the morning. Hypomagnesemia: 1.2 on presentation. Total of 4 g IV Magnesium sulfate given. Repeat Mg 2.3. Hypertension, chronic: BP 100/66 currently. No need for any antihypertensives. History of Pulmonary embolism - Had massive PE requiring tPA in April 2017. cont Warfarin Supratherapeutic INR due to Warfarin - No active bleeding. INR was 6.2 on 09/06. Patient received vitamin K 2.5 mg. INR 2.0 . monitor INR. pharmacy following for coumadin management DVT Prophylaxis: SCDs. on coumadin Problem Qualifiers (1) Non-Hodgkin lymphoma: Qualified Codes: C83.38 - Diffuse large b-cell lymphoma, lymph nodes of multiple sites (2) Anemia: Qualified Codes: D64.9 - Anemia, unspecified Arminda Diehl MD Sep 11, 2017 16:38
[2017-09-11] MEDS: SODIUM CHLORIDE 0.9% FLUSH 10 ML FLUSH IV FLUSH SCH (22:42)
[2017-09-12] VITALS (8 sets, daily range): BP systolic 109–152; BP diastolic 67–90; PULSE 60–98; RESP 16–18; TEMP 98.1–98.9; O2SAT 98–100
[2017-09-12] MEDS: VANCOMYCIN 1,000 MG/NS 250 ML IV SCH ×4 (05:14→17:33)
[2017-09-12] MEDS: VANCOMYCIN 500 MG VIAL (FOR ORAL USE ONLY) PO SCH ×3 (05:15→17:33)
[2017-09-12 06:59] LABS: AUTOMATED NEUTROPHIL # 7.6 TH/MM3 (1.8-7.7); BASOPHIL % 0.2 % (0.0-2.0); EOSINOPHIL % 0.3 % (0.0-4.0); HEMATOCRIT 36.9 % (39.0-51.0); HEMOGLOBIN 11.6 GM/DL (13.0-17.0); LYMPH % 9.8 % (9.0-44.0); LYMPHOCYTE # 0.9 TH/MM3 (1.0-4.8); MEAN CELL VOLUME 82.4 FL (80.0-100.0); MEAN CORPUSCULAR HGB CONC 31.5 % (32.0-36.0); MEAN PLATELET VOLUME 8.3 FL (7.0-11.0); MONO % 5.6 % (0.0-8.0); MONOCYTE # 0.5 TH/MM3 (0-0.9); NEUT % 84.1 % (16.0-70.0); PLATELET COUNT 223 TH/MM3 (150-450); RED BLOOD COUNT 4.48 MIL/MM3 (4.50-5.90); RED CELL DISTRIBUTION WIDTH 20.2 % (11.6-17.2)
[2017-09-12 07:25] LABS: CALCIUM 7.7 MG/DL (8.5-10.1); CREATININE 0.54 MG/DL (0.60-1.30); MAGNESIUM 1.5 MG/DL (1.5-2.5)
--- NOTE | 2017-09-12 08:17 | PD.ONC.PN ---
Subjective Subjective Remarks Afebrile overnight Patient resting in bed in no acute distress Reports he feels about the same Has not been wanting to work with physical therapy We discussed the importance of nutrition and increasing his strength to continue with chemotherapy Objective Data Date Time Temp Pulse Resp B/P (MAP) Pulse Ox O2 Delivery O2 Flow Rate FiO2 09/12/17 07:41 98 21 09/12/17 05:29 98.1 72 16 134/89 (104) 100 09/12/17 01:25 98.5 72 16 119/78 (92) 100 09/11/17 21:00 98.4 70 16 117/81 (93) 97 09/11/17 20:11 74 09/11/17 17:47 99 21 09/11/17 16:41 98.2 77 16 128/81 (97) 09/11/17 14:23 97.7 71 14 131/85 (100) 99 09/11/17 10:25 96 09/11/17 09:25 97.8 70 14 150/91 (110) 99 09/12/17 09/12/17 09/12/17 07:00 15:00 23:00 Output Total 250 ml Balance -250 ml Result Diagram: 09/12/17 0603 09/12/17 0603 Laboratory Results Laboratory Tests Test 09/12/17 06:03 White Blood Count 9.0 TH/MM3 Red Blood Count 4.48 MIL/MM3 Hemoglobin 11.6 GM/DL Hematocrit 36.9 % Mean Corpuscular Volume 82.4 FL Mean Corpuscular Hemoglobin 26.0 PG Mean Corpuscular Hemoglobin Concent 31.5 % Red Cell Distribution Width 20.2 % Platelet Count 223 TH/MM3 Mean Platelet Volume 8.3 FL Neutrophils (%) (Auto) 84.1 % Lymphocytes (%) (Auto) 9.8 % Monocytes (%) (Auto) 5.6 % Eosinophils (%) (Auto) 0.3 % Basophils (%) (Auto) 0.2 % Neutrophils # (Auto) 7.6 TH/MM3 Lymphocytes # (Auto) 0.9 TH/MM3 Monocytes # (Auto) 0.5 TH/MM3 Eosinophils # (Auto) 0.0 TH/MM3 Basophils # (Auto) 0.0 TH/MM3 CBC Comment DIFF FINAL Differential Comment Blood Urea Nitrogen 3 MG/DL Creatinine 0.54 MG/DL Random Glucose 77 MG/DL Calcium Level 7.7 MG/DL Magnesium Level 1.5 MG/DL Sodium Level 144 MEQ/L Potassium Level 2.6 MEQ/L Chloride Level 113 MEQ/L Carbon Dioxide Level 19.0 MEQ/L Anion Gap 12 MEQ/L Estimat Glomerular Filtration Rate 196 ML/MIN Culture Results Microbiology Date/Time Source Procedure Growth Status 09/09/17 21:40 Blood Peripheral Aerobic Blood Culture - Preliminary Gram Positive Cocci Resulted 09/09/17 21:40 Blood Peripheral Anaerobic Blood Culture - Preliminary NO GROWTH IN 2 DAYS Resulted 09/09/17 21:35 Blood Peripheral Aerobic Blood Culture - Preliminary S. Aureus Mrsa Resulted 09/09/17 21:35 Anaerobic Blood Culture - Preliminary Gram Positive Cocci Resulted Administered Medications Medications (Trade) Dose Ordered Sig/Shyla Route PRN Reason Start Time Stop Time Status Last Admin Dose Admin Sodium Chloride (NS Flush) 2 ml UNSCH PRN IV FLUSH FLUSH AFTER USING IV ACCESS 09/06/17 13:00 09/08/17 22:44 Sodium Chloride (NS Flush) 2 ml BID IV FLUSH 09/06/17 21:00 09/11/17 22:42 Acetaminophen (Tylenol) 650 mg Q4H PRN PO headache, fever, pain 1-4 09/06/17 13:00 09/06/17 19:41 Cefepime HCl 2000 mg/Sodium Chloride 100 ml @ 200 mls/hr Q8H IV 09/06/17 16:00 09/11/17 22:40 Dronabinol (Marinol) 2.5 mg BID@11,16 PO 09/07/17 11:00 09/11/17 18:18 Azithromycin 500 mg/Sodium Chloride 250 ml @ 250 mls/hr Q24H IV 09/07/17 16:00 09/11/17 16:24 Vancomycin HCl 1000 mg/Sodium Chloride 250 ml @ 250 mls/hr Q12H IV 09/09/17 04:00 09/12/17 05:14 Warfarin Sodium (Coumadin) 5 mg DAILY@1600 PO 09/09/17 16:00 Future Hold 09/09/17 14:47 Vancomycin HCl (VANCOMYCIN for oral use only) 125 mg Q6H PO 09/09/17 12:00 09/12/17 05:15 Potassium Chloride (KCl) 20 meq Q12HR PO 09/11/17 09:00 09/11/17 22:39 Lactobacillus Acidophilus (Lactinex) 1 tab TID PO 09/11/17 09:00 09/11/17 18:18 Objective Remarks GENERAL: Chronically ill appearing male resting in bed in no acute distress SKIN: Warm and dry. HEAD: Normocephalic. EYES: No injection or drainage. NECK: Supple, trachea midline. LYMPHADENOPATHY: Left axillary adenopathy CARDIOVASCULAR: Regular rate and rhythm RESPIRATORY: Breath sounds equal bilaterally. No accessory muscle use. GASTROINTESTINAL: Abdomen soft, non-tender, nondistended. EXTREMITIES: No cyanosis. No edema. NEUROLOGICAL: Awakens easily to verbal stimuli. Assessment/Plan Problem List: (1) C. difficile colitis ICD Codes: A04.7 - Enterocolitis due to Clostridium difficile Status: Resolved Plan: --on cefepime, azithromycin and po as well as IV vancomycin (2) Sepsis ICD Codes: A41.9 - Sepsis, unspecified organism Plan: --ID following --BC + GPC --++ vanco, cefepime, azithromycin (3) Pneumonia ICD Codes: J18.9 - Pneumonia, unspecified organism Plan: --on antibiotics --ID following. (4) Normocytic anemia ICD Codes: D64.9 - Anemia, unspecified Status: Acute Plan: --monitor and transfuse as needed. (5) Pulmonary emboli ICD Codes: I26.99 - Other pulmonary embolism without acute cor pulmonale Status: Chronic Plan: --on coumadin -- Currently on hold as INR is increasing (6) Non-Hodgkin lymphoma ICD Codes: C85.90 - Non-Hodgkin lymphoma, unspecified, unspecified site Status: Acute Plan: --will hold chemotherapy this week d/t admission for pneumonia -- Will resume chemotherapy once patient stronger Assessment 47y/o male with high-grade diffuse large B-cell lymphoma admitted for pneumonia and nausea/vomiting as well as anemia. History of pulmonary embolism currently on anticoagulation. Hypertension. Protein-calorie malnutrition. Plan 1. INR pending today 2. Replace hypokalemia with 40 meq of potassium IV 3. Hold chemotherapy until performance status improves 4. Monitor CBC, BMP PT/INR Attending Statement The exam, history, and the medical decision-making described in the above note were completed with the assistance of the mid-level provider. I reviewed and agree with the findings presented. I attest that I had a [id number] encounter with the patient on the same day, and personally performed and documented my assessment and findings in the medical record. Still weak but refused to work with PT. Still has diarrhea. + electrolyte abnormalities. BCX 09/09 grew MRSA again. Continue abx per ID. encourage him to work with PT. Replace potassium. Too weak to give him chemo at this time. Problem Qualifiers (1) Non-Hodgkin lymphoma: Qualified Codes: C83.38 - Diffuse large b-cell lymphoma, lymph nodes of multiple sites Tia Montenegro Sep 12, 2017 08:17 Ruslan Connelly MD Sep 12, 2017 15:01
[2017-09-12] MEDS: CEFEPIME INJ 2,000 MG in SODIUM CHLORIDE 0.9% INJ 100 ML IV SCH ×2 (09:14→17:33)
[2017-09-12] MEDS: SODIUM CHLORIDE 0.9% FLUSH 10 ML FLUSH IV FLUSH SCH ×2 (09:14→22:44)
[2017-09-12] MEDS: POTASSIUM CHLORIDE 20 MEQ CONTROLLED RELEASE TAB PO SCH (09:14)
[2017-09-12] MEDS: LACTOBACILLUS ACIDOPHILUS TAB PO SCH ×3 (09:14→17:34)
[2017-09-12] MEDS: POTASSIUM CHLOR 20 MEQ PREMIX 100 ML IV SCH ×2 (10:23→12:52)
[2017-09-12] MEDS: DRONABINOL 2.5 MG CAP PO SCH ×2 (12:51→17:35)
--- NOTE | 2017-09-12 13:51 | HHI.PR ---
Subjective Remarks Continues to have fatigue, diarrhea and generalized weakness. Denies any pain. Objective Vitals Vital Signs Date Time Temp Pulse Resp B/P (MAP) Pulse Ox O2 Delivery O2 Flow Rate FiO2 09/12/17 13:01 98.3 69 18 152/90 (110) 100 09/12/17 08:45 98.9 60 18 120/67 (84) 98 09/12/17 07:41 98 21 09/12/17 05:29 98.1 72 16 134/89 (104) 100 09/12/17 01:25 98.5 72 16 119/78 (92) 100 09/11/17 21:00 98.4 70 16 117/81 (93) 97 09/11/17 20:11 74 09/11/17 17:47 99 21 09/11/17 16:41 98.2 77 16 128/81 (97) 09/11/17 14:23 97.7 71 14 131/85 (100) 99 I/O 09/11/17 09/11/17 09/11/17 09/12/17 09/12/17 09/12/17 07:00 15:00 23:00 07:00 15:00 23:00 Intake Total 2430 ml 720 ml Output Total 650 ml 700 ml 250 ml Balance 1780 ml 20 ml -250 ml Intake Oral 480 ml 720 ml IV Total 1950 ml Output Urine Total 650 ml 700 ml 250 ml # Voids 1 # Bowel Movements 2 3 3 Result Diagram: 09/12/17 0603 09/12/17 0603 Objective Remarks GENERAL: Cachectic appearing Afro-Syrian Syrian male patient. SKIN: Warm and dry. HEAD: Normocephalic. EYES: No scleral icterus. No injection or drainage. Oropharynx with thick exudates over teeth. NECK: Supple, trachea midline. No JVD or lymphadenopathy. CARDIOVASCULAR: Regular rate and rhythm without murmurs, gallops, or rubs. RESPIRATORY: Breath sounds equal bilaterally. No accessory muscle use. GASTROINTESTINAL: Abdomen soft, non-tender, nondistended. EXTREMITIES: No pedal edema. NEUROLOGICAL: Awake, alert, and oriented x 3. Non-focal. Procedures None. A/P Problem List: (1) Non-Hodgkin lymphoma ICD Code: C85.90 - Non-Hodgkin lymphoma, unspecified, unspecified site Status: Acute (2) Anemia ICD Code: D64.9 - Anemia, unspecified Status: Acute (3) Poor appetite ICD Code: R63.0 - Anorexia Status: Acute (4) Severe protein-calorie malnutrition ICD Code: E43 - Unspecified severe protein-calorie malnutrition (5) Sepsis due to methicillin resistant Staphylococcus aureus (MRSA) ICD Code: A41.02 - Sepsis due to Methicillin resistant Staphylococcus aureus (6) C. difficile colitis ICD Code: A04.7 - Enterocolitis due to Clostridium difficile Status: Resolved (7) Sepsis ICD Code: A41.9 - Sepsis, unspecified organism (8) Debility ICD Code: R53.81 - Other malaise Status: Acute Assessment and Plan Mr. Werner is a 47-year-old male patient with a known medical history of non- Hodgkin B-cell lymphoma, HTN and history of PE who presented to the ED with complaints of generalized weakness, nausea, vomiting and cough x 1 week. Hemoglobin 6.6 on presentation to ED, 2 units PRBC have been ordered. Acutely febrile, temp 102.5. WBC 20.9. 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 - Received Cytoxan and CHOP (cyclophosphamide, doxorubicin, vincristine and prednisone) - Subsequently, also received Rituxan and EPOCH (cyclophosphamide, doxorubicin, etoposide, vincristine, prednisone) - Last chemotherapy was 2 weeks prior to this admission. - Haptoglobin 617. LDH 196. Iron level 17, TIBC 105, ferritin 2200. - Heme/onc following. Sepsis (presence of leukocytosis with mild bandemia, fever, tachycardia and tachypnea) suspect secondary to immunosuppression from chemotherapy vs cough vs PNA, MRSA bacteremia Bilateral pneumonia - - s/p Port removal 09/10. - on maintenance IVF NS @ 100 ml/hr. - CXR shows bilateral infiltrates CT Chest shows bilateral infiltrates as well. - Blood cultures growing MRSA - ID is following- Cefepime and Vancomycin and azithromycin. C. difficile positive. -C. difficile colitis On by mouth vancomycin per ID. Add Lactinex. Still has significant loose stools. Microcytic hypochromic anemia: Hemoglobin 6.6/Hematocrit 19.6 on presentation. Hemoccult negative. 2 units PRBC ordered and infusing. - Hgb improved after transfusion. Hgb 6.6 --> 10.7--> 11.2 Severe protein calorie malnutrition due to the colitis, chronically ill, poor appetite - add ensure to diet. Hypokalemia: Due to GI loss. K 2.6 -given 40 mEq IV and by mouth potassium 30 mEq by mouth twice a day. Magnesium is 1.5 will give 1 g IV. Repeat BMP this afternoon and in the morning.. Hypertension, chronic: BP 100/66 currently. No need for any antihypertensives. History of Pulmonary embolism - Had massive PE requiring tPA in April 2017. cont Warfarin Supratherapeutic INR due to Warfarin - No active bleeding. INR was 6.2 on 09/06. Patient received vitamin K 2.5 mg. INR 2.0 . monitor INR. pharmacy following for coumadin management DVT Prophylaxis: SCDs. on coumadin Problem Qualifiers (1) Non-Hodgkin lymphoma: Qualified Codes: C83.38 - Diffuse large b-cell lymphoma, lymph nodes of multiple sites (2) Anemia: Qualified Codes: D64.9 - Anemia, unspecified Arminda Diehl MD Sep 12, 2017 13:51
[2017-09-12] MEDS ORDERED: MAGNESIUM SULFATE 1 GM PREMIX 100 ML IV ONE (14:00)
[2017-09-12 14:31] LABS: INTERNATIONAL NORMALIZED RATIO 3.6 RATIO; PROTHROMBIN TIME - PATIENT 36.7 SEC (9.8-11.6)
[2017-09-12] MEDS: AZITHROMYCIN INJ 500 MG in SODIUM CHLOR 0.9% 250 ML INJ 250 ML IV SCH (15:38)
[2017-09-12 16:40] LABS: BICARBONATE 19.7 MEQ/L (21.0-32.0); CALCIUM 7.5 MG/DL (8.5-10.1); CREATININE 0.44 MG/DL (0.60-1.30); MAGNESIUM 1.4 MG/DL (1.5-2.5)
--- NOTE | 2017-09-12 18:37 | ECHRPT ---
Indication: R/O VEGETATIONS CONCLUSIONS Normal left ventricular size. Wall thickness is normal. The left ventricular systolic function is mildly reduced with an estimated ejection fraction in the range of 45- 50%. There is mild global hypokinesis with distinct regional wall motion abnormalities. Trace mitral valve regurgitation. There is trace tricuspid valve regurgitation. Findings consistent with vegetation on the tricuspid valve @ 2-3 mm in diameter The pulmonary valve is not well visualized. BP: 127 / 83 HR: 80 Rhythm: Sinus MEASUREMENTS (Male / Female) Normal Values Technical Quality:Very technically difficult study 2D ECHO LV Diastolic Diameter PLAX 4.1 cm 4.2 - 5.9 / 3.9 - 5.3 cm LV Systolic Diameter PLAX 3.3 cm IVS Diastolic Thickness 0.5 cm 0.6 - 1.0 / 0.6 - 0.9 cm LVPW Diastolic Thickness 0.5 cm 0.6 - 1.0 / 0.6 - 0.9 cm LV Relative Wall Thickness 0.2 LVOT Diameter 2.1 cm Aortic Root Diameter 3.0 cm M-MODE AV Cusp Separation MM 2.1 cm DOPPLER AV Peak Velocity 120.0 cm/s AV Peak Gradient 5.8 mmHg AV Mean Gradient 3.0 mmHg AV Velocity Time Integral 16.9 cm LVOT Peak Velocity 79.7 cm/s LVOT Peak Gradient 2.5 mmHg LVOT Velocity Time Integral 12.2 cm LVOT Cardiac Index 1846.9 cm/minm AV Area Cont Eq vti 2.5 cm AV Area Cont Eq pk 2.3 cm Mitral E Point Velocity 57.8 cm/s Mitral A Point Velocity 49.9 cm/s Mitral E to A Ratio 1.2 FINDINGS LEFT VENTRICLE Normal left ventricular size. Wall thickness is normal. The left ventricular systolic function is mildly reduced with an estimated ejection fraction in the range of 45- 50%. There is mild global hypokinesis with distinct regional wall motion abnormalities. RIGHT VENTRICLE Normal right ventricular size and systolic function. LEFT ATRIUM The left atrial size is normal. RIGHT ATRIUM The right atrial size is normal. ATRIAL SEPTUM Normal atrial septal thickness without atrial level shunting by limited color doppler interrogation. AORTA The aortic root and proximal ascending aorta are normal in size on limited imaging. MITRAL VALVE Trace mitral valve regurgitation. AORTIC VALVE Trileaflet aortic valve. No aortic valve stenosis or regurgitation. TRICUSPID VALVE There is trace tricuspid valve regurgitation. Findings consistent with vegetation on the tricuspid valve. PULMONARY VALVE The pulmonary valve is not well visualized. VESSELS The inferior vena cava is normal in size. PERICARDIUM No pericardial effusion. Shine Hong MD, FACC, [facility] [place] (Electronically Signed) Final Date:12 September 2017 18:36
--- NOTE | 2017-09-12 18:53 | HHI.IDPN ---
Subjective Subjective Remarks diarrhea cont 6 BMs/day no fever On RA + non occlusiove thrombus in jugular Last blood clx are positive 2D echo positive for TV endocarditis Antibiotics vanco IV cefepime azithro flagyl Allergies: Coded Allergies: Milk Containing Products (Verified Allergy, Mild, diarrhea, 06/11/17) Objective . Vital Signs Date Time Temp Pulse Resp B/P (MAP) Pulse Ox O2 Delivery O2 Flow Rate FiO2 09/12/17 17:44 98.4 73 18 141/85 (103) 100 09/12/17 13:01 98.3 69 18 152/90 (110) 100 09/12/17 08:45 98.9 60 18 120/67 (84) 98 09/12/17 07:41 98 21 09/12/17 05:29 98.1 72 16 134/89 (104) 100 09/12/17 01:25 98.5 72 16 119/78 (92) 100 09/11/17 21:00 98.4 70 16 117/81 (93) 97 09/11/17 20:11 74 09/12/17 09/12/17 09/13/17 15:00 23:00 07:00 Intake Total 300 ml 700 ml Balance 300 ml 700 ml IV Total 300 ml 700 ml . Laboratory Tests Test 09/11/17 07:55 09/12/17 06:03 White Blood Count 11.7 TH/MM3 9.0 TH/MM3 Red Blood Count 3.92 MIL/MM3 4.48 MIL/MM3 Hemoglobin 10.6 GM/DL 11.6 GM/DL Hematocrit 33.2 % 36.9 % Mean Corpuscular Volume 84.8 FL 82.4 FL Mean Corpuscular Hemoglobin 27.0 PG 26.0 PG Mean Corpuscular Hemoglobin Concent 31.9 % 31.5 % Red Cell Distribution Width 19.8 % 20.2 % Platelet Count 161 TH/MM3 223 TH/MM3 Mean Platelet Volume 8.8 FL 8.3 FL Neutrophils (%) (Auto) 87.5 % 84.1 % Lymphocytes (%) (Auto) 5.9 % 9.8 % Monocytes (%) (Auto) 6.1 % 5.6 % Eosinophils (%) (Auto) 0.3 % 0.3 % Basophils (%) (Auto) 0.2 % 0.2 % Neutrophils # (Auto) 10.2 TH/MM3 7.6 TH/MM3 Lymphocytes # (Auto) 0.7 TH/MM3 0.9 TH/MM3 Monocytes # (Auto) 0.7 TH/MM3 0.5 TH/MM3 Eosinophils # (Auto) 0.0 TH/MM3 0.0 TH/MM3 Basophils # (Auto) 0.0 TH/MM3 0.0 TH/MM3 CBC Comment DIFF FINAL DIFF FINAL Differential Comment Laboratory Tests Test 09/11/17 05:23 09/12/17 06:03 09/12/17 15:54 Blood Urea Nitrogen 3 MG/DL 3 MG/DL 2 MG/DL Creatinine 0.53 MG/DL 0.54 MG/DL 0.44 MG/DL Random Glucose 81 MG/DL 77 MG/DL 89 MG/DL Total Protein 4.7 GM/DL Calcium Level 7.4 MG/DL 7.7 MG/DL 7.5 MG/DL Sodium Level 142 MEQ/L 144 MEQ/L 143 MEQ/L Potassium Level 2.9 MEQ/L 2.6 MEQ/L 3.0 MEQ/L Chloride Level 115 MEQ/L 113 MEQ/L 114 MEQ/L Carbon Dioxide Level 17.3 MEQ/L 19.0 MEQ/L 19.7 MEQ/L Anion Gap 10 MEQ/L 12 MEQ/L 9 MEQ/L Estimat Glomerular Filtration Rate 200 ML/MIN 196 ML/MIN 248 ML/MIN Protein Corrected Calcium 8.8 MG/DL Magnesium Level 1.5 MG/DL 1.4 MG/DL Microbiology Date/Time Source Procedure Growth Status 09/12/17 11:00 Blood Peripheral Aerobic Blood Culture Pending Received 09/12/17 11:00 Blood Peripheral Anaerobic Blood Culture Pending Received 09/09/17 21:40 Blood Peripheral Aerobic Blood Culture - Final S. Aureus Mrsa Resulted 09/09/17 21:40 Blood Peripheral Anaerobic Blood Culture - Preliminary NO GROWTH IN 3 DAYS Resulted 09/09/17 21:35 Blood Peripheral Aerobic Blood Culture - Final S. Aureus Mrsa Complete 09/09/17 21:35 Anaerobic Blood Culture - Final S. Aureus Mrsa Complete Imaging Last Impressions Upper Extremity Ultrasound 09/10/17 0000 Signed Impressions: Service Date/Time: August 13:56 - CONCLUSION: 1. Nonocclusive thrombus in the jugular vein. 2. The other vessels are patent. 3. Solid lobular mass in the supraclavicular region consistent with adenopathy in this patient with history of lymphoma. Goldy Suarez MD Port Line Revision 09/08/17 0000 Signed Impressions: Service Date/Time: Friday, September 08, 2017 00:00 - CONCLUSION: Uncomplicated port removal as above. Adama Briceño MD Chest X-Ray 09/06/17 0000 Signed Impressions: Service Date/Time: Wednesday, September 06, 2017 14:57 - CONCLUSION: Patchy interstitial infiltrates left lower lung. The lungs are otherwise clear. rByon Evans MD Chest CT 09/06/17 0000 Signed Impressions: Service Date/Time: Wednesday, September 06, 2017 15:57 - CONCLUSION: 1. Patchy bilateral air space consolidation in both lung bases. Differential diagnosis includes bronchopneumonia and aspiration. Small pleural effusions improved from April. 2. Extensive mediastinal adenopathy also improved from April. Travis Ruffin MD Physical Exam CONSTITUTIONAL/GENERAL: This is a thin poorly nourished chronically ill appearing patient, in no apparent distress. Breathes better , off O2 TUBES/LINES/DRAINS: PORT removed, dressing in place SKIN: No jaundice, rashes, or lesions. Skin temperature appropriate. Not diaphoretic. Alopecia ENT: Hearing grossly normal. Nose without bleeding or purulent drainage. Oral mucosae w/o mucositis poor dentition CARDIOVASCULAR: Regular rate and rhythm without murmurs, gallops, or rubs. No JVD. Peripheral pulses symmetric. RESPIRATORY/CHEST: Symmetric, unlabored respirations. Clear to auscultation. Breath sounds equal bilaterally. No wheezes, rales, or rhonchi. GASTROINTESTINAL: Abdomen soft, non-tender, midly distended. No hepato- splenomegaly, or palpable masses. No guarding. Bowel sounds present. MUSCULOSKELETAL: Extremities without clubbing, cyanosis, or edema. NEUROLOGICAL: Awake and alert. Motor and sensory grossly within normal limits. Follows commands. Clear speech. Moves all extremities. PSYCHIATRIC: No obvious anxiety/depression. no apparent hallucinations or other psychotic thought process. 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 Atypical PNA C.diff, prior exposure to levaquine : pesistent diarrhea cont vanco x 6 weeks after blood clx clear (thrombus) fu 2 D echo fu repeat blood clx cont cefepime for now repeat CXR cont azithromycin x 5 days con PO vancomycin x 14 days ASP: vanco was chosen over flagyl 2/2 clinical idication of severe disease: 9 BMs/day, WBC 20 K Kelsie Hong MD Sep 12, 2017 18:53
[2017-09-12] MEDS: POTASSIUM CHLORIDE 10 MEQ CONTROLLED RELEASE TAB PO SCH (22:44)
[2017-09-13] VITALS (8 sets, daily range): BP systolic 102–141; BP diastolic 64–81; PULSE 55–76; RESP 15–18; TEMP 98.3–98.8; O2SAT 97–100
[2017-09-13] MEDS: CEFEPIME INJ 2,000 MG in SODIUM CHLORIDE 0.9% INJ 100 ML IV SCH ×4 (00:05→23:34)
[2017-09-13] MEDS: VANCOMYCIN 500 MG VIAL (FOR ORAL USE ONLY) PO SCH ×5 (00:05→23:33)
[2017-09-13] MEDS ORDERED: PHARMACY ORDERED LAB ONE (03:45)
--- NOTE | 2017-09-13 05:32 | RADRPT ---
EXAM DATE/TIME: 09/13/2017 04:42 [place] COMPARISON: CT THORAX W CONTRAST, September 06, 2017, 15:57. CHEST SINGLE AP, September 06, 2017, 14:57. INDICATIONS : Shortness of breath, possible pneumothorax. MEDICAL HISTORY : Hypertension. A-Fib PE Nonhodgkins lymphoma SURGICAL HISTORY : None. ENCOUNTER: Subsequent ACUITY: 1 week PAIN SCORE: 0/10 LOCATION: Bilateral chest FINDINGS: Portable AP view of the chest demonstrates a normal-sized cardiac silhouette. Right paratracheal and subcarinal opacity remain present. There is mild airspace opacity in the lower lung zones bilaterally . No pneumothorax is visualized. CONCLUSION: 1. No pneumothorax is visualized. There is mild bibasilar airspace opacity, left greater than right. 2. Right paratracheal and subcarinal masses are stable. Tacos Perez MD on September 13, 2017 at 5:29 Board Certified Radiologist. This report was verified electronically.
--- NOTE | 2017-09-13 08:12 | PD.ONC.PN ---
Subjective Subjective Remarks Afebrile Patient remains fatigued Not wanting to engage with physical therapy No other acute complaints Objective Data Date Time Temp Pulse Resp B/P (MAP) Pulse Ox O2 Delivery O2 Flow Rate FiO2 09/13/17 04:55 98.3 63 15 129/72 (91) 99 09/13/17 00:14 98.4 70 18 134/81 (98) 100 09/12/17 20:50 78 09/12/17 20:25 21 09/12/17 20:00 98.5 76 16 109/72 (84) 99 09/12/17 17:44 98.4 73 18 141/85 (103) 100 09/12/17 13:01 98.3 69 18 152/90 (110) 100 09/12/17 08:45 98.9 60 18 120/67 (84) 98 09/13/17 09/13/17 09/13/17 07:00 15:00 23:00 Intake Total 240 ml Output Total 425 ml Balance -185 ml Result Diagram: 09/12/17 0603 09/12/17 1554 Laboratory Results Laboratory Tests Test 09/12/17 13:50 09/12/17 15:54 Prothrombin Time 36.7 SEC Prothromb Time International Ratio 3.6 RATIO Blood Urea Nitrogen 2 MG/DL Creatinine 0.44 MG/DL Random Glucose 89 MG/DL Calcium Level 7.5 MG/DL Magnesium Level 1.4 MG/DL Sodium Level 143 MEQ/L Potassium Level 3.0 MEQ/L Chloride Level 114 MEQ/L Carbon Dioxide Level 19.7 MEQ/L Anion Gap 9 MEQ/L Estimat Glomerular Filtration Rate 248 ML/MIN Culture Results Microbiology Date/Time Source Procedure Growth Status 09/12/17 11:00 Blood Peripheral Aerobic Blood Culture Pending Received 09/12/17 11:00 Blood Peripheral Anaerobic Blood Culture Pending Received Imaging Studies Last 24 hours Impressions Chest X-Ray 09/13/17 0600 Signed Impressions: Service Date/Time: Wednesday, September 13, 2017 04:42 - CONCLUSION: 1. No pneumothorax is visualized. There is mild bibasilar airspace opacity, left greater than right. 2. Right paratracheal and subcarinal masses are stable. Tacos Perez MD Administered Medications Medications (Trade) Dose Ordered Sig/Shyla Route PRN Reason Start Time Stop Time Status Last Admin Dose Admin Sodium Chloride (NS Flush) 2 ml UNSCH PRN IV FLUSH FLUSH AFTER USING IV ACCESS 09/06/17 13:00 09/08/17 22:44 Sodium Chloride (NS Flush) 2 ml BID IV FLUSH 09/06/17 21:00 09/12/17 22:44 Acetaminophen (Tylenol) 650 mg Q4H PRN PO headache, fever, pain 1-4 09/06/17 13:00 09/06/17 19:41 Cefepime HCl 2000 mg/Sodium Chloride 100 ml @ 200 mls/hr Q8H IV 09/06/17 16:00 09/13/17 00:05 Dronabinol (Marinol) 2.5 mg BID@11,16 PO 09/07/17 11:00 09/12/17 17:35 Azithromycin 500 mg/Sodium Chloride 250 ml @ 250 mls/hr Q24H IV 09/07/17 16:00 09/12/17 15:38 Vancomycin HCl 1000 mg/Sodium Chloride 250 ml @ 250 mls/hr Q12H IV 09/09/17 04:00 09/12/17 17:33 Warfarin Sodium (Coumadin) 5 mg DAILY@1600 PO 09/09/17 16:00 Future Hold 09/09/17 14:47 Vancomycin HCl (VANCOMYCIN for oral use only) 125 mg Q6H PO 09/09/17 12:00 09/13/17 00:05 Lactobacillus Acidophilus (Lactinex) 1 tab TID PO 09/11/17 09:00 09/12/17 17:34 Potassium Chloride (KCl) 30 meq Q12HR PO 09/12/17 21:00 09/12/17 22:44 Objective Remarks GENERAL: Chronically ill appearing male resting in bed in no acute distress SKIN: Warm and dry. HEAD: Normocephalic. EYES: No injection or drainage. NECK: Supple, trachea midline. LYMPHADENOPATHY: Left axillary adenopathy CARDIOVASCULAR: Regular rate and rhythm RESPIRATORY: Breath sounds equal bilaterally. No accessory muscle use. GASTROINTESTINAL: Abdomen soft, non-tender, nondistended. EXTREMITIES: No cyanosis. No edema. NEUROLOGICAL: Awakens easily to verbal stimuli. Assessment/Plan Problem List: (1) C. difficile colitis ICD Codes: A04.7 - Enterocolitis due to Clostridium difficile Status: Resolved Plan: --on cefepime, azithromycin and po as well as IV vancomycin (2) Sepsis ICD Codes: A41.9 - Sepsis, unspecified organism Plan: --ID following --BC + GPC --++ vanco, cefepime, azithromycin (3) Pneumonia ICD Codes: J18.9 - Pneumonia, unspecified organism Plan: --on antibiotics --ID following. (4) Normocytic anemia ICD Codes: D64.9 - Anemia, unspecified Status: Acute Plan: --monitor and transfuse as needed. (5) Pulmonary emboli ICD Codes: I26.99 - Other pulmonary embolism without acute cor pulmonale Status: Chronic Plan: --on coumadin -- Currently on hold (6) Non-Hodgkin lymphoma ICD Codes: C85.90 - Non-Hodgkin lymphoma, unspecified, unspecified site Status: Acute Plan: --will hold chemotherapy this week d/t admission for pneumonia -- Will resume chemotherapy once patient stronger Assessment 47y/o male with high-grade diffuse large B-cell lymphoma admitted for pneumonia and nausea/vomiting as well as anemia. History of pulmonary embolism currently on anticoagulation. Hypertension. Protein-calorie malnutrition. Plan 1. Patient performance status remains poor and he has been refusing physical therapy 2. INR increased likely due to coagulopathy from infection 3. Awaiting labs today 4. If performance status does not improve in the next several days, then a discussion with palliative care may be appropriate. Attending Statement The exam, history, and the medical decision-making described in the above note were completed with the assistance of the mid-level provider. I reviewed and agree with the findings presented. I attest that I had a [id number] encounter with the patient on the same day, and personally performed and documented my assessment and findings in the medical record. Still weak but did not want to get out of bed. Diarrhea improving. Remains afebrile. + hypokalemia. INR high and will hold coumadin. Problem Qualifiers (1) Non-Hodgkin lymphoma: Qualified Codes: C83.38 - Diffuse large b-cell lymphoma, lymph nodes of multiple sites Tia Montenegro Sep 13, 2017 08:11 Ruslan Connelly MD Sep 13, 2017 13:15
[2017-09-13] MEDS: SODIUM CHLORIDE 0.9% FLUSH 10 ML FLUSH IV FLUSH SCH ×2 (09:09→21:55)
[2017-09-13] MEDS: POTASSIUM CHLORIDE 10 MEQ CONTROLLED RELEASE TAB PO SCH ×2 (09:09→21:55)
[2017-09-13] MEDS: LACTOBACILLUS ACIDOPHILUS TAB PO SCH ×3 (09:09→17:25)
[2017-09-13 09:44] LABS: AUTOMATED NEUTROPHIL # 7.1 TH/MM3 (1.8-7.7); BASOPHIL # 0.1 TH/MM3 (0-0.2); BASOPHIL % 0.9 % (0.0-2.0); EOSINOPHIL % 0.3 % (0.0-4.0); HEMATOCRIT 33.6 % (39.0-51.0); LYMPH % 9.5 % (9.0-44.0); LYMPHOCYTE # 0.8 TH/MM3 (1.0-4.8); MEAN CELL VOLUME 80.7 FL (80.0-100.0); MEAN CORPUSCULAR HEMOGLOBIN 26.4 PG (27.0-34.0); MEAN CORPUSCULAR HGB CONC 32.7 % (32.0-36.0); MEAN PLATELET VOLUME 8.4 FL (7.0-11.0); MONO % 4.7 % (0.0-8.0); MONOCYTE # 0.4 TH/MM3 (0-0.9); NEUT % 84.6 % (16.0-70.0); PLATELET COUNT 273 TH/MM3 (150-450); RED BLOOD COUNT 4.16 MIL/MM3 (4.50-5.90); RED CELL DISTRIBUTION WIDTH 19.2 % (11.6-17.2); WHITE BLOOD COUNT 8.4 TH/MM3 (4.0-11.0)
[2017-09-13 09:50] LABS: INTERNATIONAL NORMALIZED RATIO 3.9 RATIO; PROTHROMBIN TIME - PATIENT 38.7 SEC (9.8-11.6)
[2017-09-13] MEDS: VANCOMYCIN 1,000 MG/NS 250 ML IV SCH ×2 (10:12)
[2017-09-13 10:24] LABS: BICARBONATE 20.6 MEQ/L (21.0-32.0); CALCIUM 7.7 MG/DL (8.5-10.1); CREATININE 0.59 MG/DL (0.60-1.30); MAGNESIUM 1.5 MG/DL (1.5-2.5)
[2017-09-13] MEDS: POTASSIUM CHLOR 20 MEQ PREMIX 100 ML IV SCH ×2 (12:16→14:02)
[2017-09-13] MEDS: DRONABINOL 2.5 MG CAP PO SCH ×2 (12:16→17:25)
--- NOTE | 2017-09-13 14:57 | HHI.PR ---
Subjective Remarks Mr. Werner denies any abdominal pain, dyspnea. He continues to have loose stools. Nurse noted that a whole potassium pill was found in his bowel movement yesterday. Potassium 2.6 this morning being repleted via IV. Objective Vitals Vital Signs Date Time Temp Pulse Resp B/P (MAP) Pulse Ox O2 Delivery O2 Flow Rate FiO2 09/13/17 14:23 98.8 60 18 114/76 (89) 100 09/13/17 11:05 100 09/13/17 09:17 98.3 56 16 126/74 (91) 100 09/13/17 04:55 98.3 63 15 129/72 (91) 99 09/13/17 00:14 98.4 70 18 134/81 (98) 100 09/12/17 20:50 78 09/12/17 20:25 21 09/12/17 20:00 98.5 76 16 109/72 (84) 99 09/12/17 17:44 98.4 73 18 141/85 (103) 100 I/O 09/12/17 09/12/17 09/12/17 09/13/17 09/13/17 09/13/17 06:59 14:59 22:59 06:59 14:59 22:59 Intake Total 300 ml 700 ml 240 ml 450 ml Output Total 250 ml 600 ml 425 ml Balance -250 ml 300 ml 100 ml -185 ml 450 ml Intake Oral 240 ml IV Total 300 ml 700 ml 450 ml Output Urine Total 250 ml 600 ml 425 ml # Voids 1 # Bowel Movements 3 3 1 Result Diagram: 09/13/1792609/13/17926 Objective Remarks GENERAL: Cachectic appearing Afro[place] male patient. SKIN: Warm and dry. HEAD: Normocephalic. EYES: No scleral icterus. No injection or drainage. Oropharynx with thick exudates over teeth. NECK: Supple, trachea midline. No JVD or lymphadenopathy. CARDIOVASCULAR: Regular rate and rhythm without murmurs, gallops, or rubs. RESPIRATORY: Breath sounds equal bilaterally. No accessory muscle use. GASTROINTESTINAL: Abdomen soft, non-tender, nondistended. EXTREMITIES: No pedal edema. NEUROLOGICAL: Awake, alert, and oriented x 3. Non-focal. Procedures None. A/P Problem List: (1) Non-Hodgkin lymphoma ICD Code: C85.90 - Non-Hodgkin lymphoma, unspecified, unspecified site Status: Acute (2) Anemia ICD Code: D64.9 - Anemia, unspecified Status: Acute (3) Poor appetite ICD Code: R63.0 - Anorexia Status: Acute (4) Severe protein-calorie malnutrition ICD Code: E43 - Unspecified severe protein-calorie malnutrition (5) Sepsis due to methicillin resistant Staphylococcus aureus (MRSA) ICD Code: A41.02 - Sepsis due to Methicillin resistant Staphylococcus aureus (6) C. difficile colitis ICD Code: A04.7 - Enterocolitis due to Clostridium difficile Status: Resolved (7) Sepsis ICD Code: A41.9 - Sepsis, unspecified organism (8) Debility ICD Code: R53.81 - Other malaise Status: Acute Assessment and Plan Mr. Werner is a 47-year-old male patient with a known medical history of non- Hodgkin B-cell lymphoma, HTN and history of PE who presented to the ED with complaints of generalized weakness, nausea, vomiting and cough x 1 week. Hemoglobin 6.6 on presentation to ED, 2 units PRBC have been ordered. Acutely febrile, temp 102.5. WBC 20.9. 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 - Received Cytoxan and CHOP (cyclophosphamide, doxorubicin, vincristine and prednisone) - Subsequently, also received Rituxan and EPOCH (cyclophosphamide, doxorubicin, etoposide, vincristine, prednisone) - Last chemotherapy was 2 weeks prior to this admission. - Haptoglobin 617. LDH 196. Iron level 17, TIBC 105, ferritin 2200. - Heme/onc following. Sepsis, MRSA tricuspid valve endocarditis, MRSA bacteremia, bilateral pneumonia - - s/p Port removal 09/10. - on maintenance IVF NS @ 100 ml/hr. - CXR shows bilateral infiltrates CT Chest shows bilateral infiltrates as well. - Blood cultures growing MRSA -2-D echocardiogram with tricuspid valve vegetation - ID is following- Cefepime and Vancomycin and azithromycin. C. difficile positive. -C. difficile colitis On by mouth vancomycin per ID. Lactinex. Still has significant loose stools. Microcytic hypochromic anemia: Hemoglobin 6.6/Hematocrit 19.6 on presentation. Hemoccult negative. 2 units PRBC ordered and infusing. - Hgb improved after transfusion. Hgb 6.6 --> 10.7--> 11.2 Severe protein calorie malnutrition due to the colitis, chronically ill, poor appetite - cont ensure to diet. Hypokalemia: Due to GI loss. K 2.6 -give 40 mEq IV and by mouth potassium 30 mEq by mouth twice a day. Repeat BMP this afternoon. Hypertension, chronic: BP 100/66 currently. No need for any antihypertensives. History of Pulmonary embolism - Had massive PE requiring tPA in April 2017. cont Warfarin Supratherapeutic INR due to Warfarin - No active bleeding. INR was 6.2 on 09/06. Patient received vitamin K 2.5 mg. INR 2.0 . monitor INR. pharmacy following for coumadin management DVT Prophylaxis: SCDs. on coumadin Problem Qualifiers (1) Non-Hodgkin lymphoma: Qualified Codes: C83.38 - Diffuse large b-cell lymphoma, lymph nodes of multiple sites (2) Anemia: Qualified Codes: D64.9 - Anemia, unspecified Arminda Diehl MD Sep 13, 2017 14:57
[2017-09-13] MEDS: AZITHROMYCIN INJ 500 MG in SODIUM CHLOR 0.9% 250 ML INJ 250 ML IV SCH (16:00)
[2017-09-13 17:28] LABS: BICARBONATE 19.3 MEQ/L (21.0-32.0); CALCIUM 7.7 MG/DL (8.5-10.1); CREATININE 0.48 MG/DL (0.60-1.30)
[2017-09-14] VITALS (11 sets, daily range): BP systolic 119–145; BP diastolic 83–93; PULSE 67–82; RESP 16–18; TEMP 98.3–98.7; O2SAT 98–100
[2017-09-14] MEDS: VANCOMYCIN 500 MG VIAL (FOR ORAL USE ONLY) PO SCH ×4 (06:11→23:43)
[2017-09-14] MEDS: SODIUM CHLORIDE 0.9% FLUSH 10 ML FLUSH IV FLUSH SCH ×2 (08:52→19:54)
[2017-09-14] MEDS: POTASSIUM CHLORIDE 10 MEQ CONTROLLED RELEASE TAB PO SCH (08:52)
[2017-09-14] MEDS: LACTOBACILLUS ACIDOPHILUS TAB PO SCH ×3 (08:52→18:27)
[2017-09-14] MEDS: CEFEPIME INJ 2,000 MG in SODIUM CHLORIDE 0.9% INJ 100 ML IV SCH ×3 (08:52→23:43)
--- NOTE | 2017-09-14 10:55 | PD.ONC.PN ---
Subjective Subjective Remarks Afebrile overnight. Patient resting in bed. Refused labs this morning and has not been getting out of bed much. Continuing to have diarrhea. Objective Data Date Time Temp Pulse Resp B/P (MAP) Pulse Ox O2 Delivery O2 Flow Rate FiO2 09/14/17 08:39 98.4 78 18 137/84 (101) 99 09/14/17 07:00 68 09/14/17 04:00 98.5 76 18 138/90 (106) 98 09/14/17 00:00 98.5 68 18 137/83 (101) 99 09/13/17 23:00 67 09/13/17 20:00 98.6 55 18 141/77 (98) 100 09/13/17 20:00 76 09/13/17 16:33 98.7 70 18 102/64 (77) 97 09/13/17 14:23 98.8 60 18 114/76 (89) 100 09/13/17 11:05 100 09/14/17 09/14/17 09/14/17 07:00 15:00 23:00 Intake Total 240 ml Output Total 650 ml Balance -410 ml Result Diagram: 09/13/17 0927 09/13/17 1630 Laboratory Results Laboratory Tests Test 09/13/17 16:30 Blood Urea Nitrogen 2 MG/DL Creatinine 0.48 MG/DL Random Glucose 84 MG/DL Calcium Level 7.7 MG/DL Sodium Level 141 MEQ/L Potassium Level 4.0 MEQ/L Chloride Level 113 MEQ/L Carbon Dioxide Level 19.3 MEQ/L Anion Gap 9 MEQ/L Estimat Glomerular Filtration Rate 225 ML/MIN Culture Results Microbiology Date/Time Source Procedure Growth Status 09/13/17 09:27 Blood Peripheral Aerobic Blood Culture Pending Received 09/13/17 09:27 Blood Peripheral Anaerobic Blood Culture Pending Received 09/12/17 11:00 Blood Peripheral Aerobic Blood Culture - Preliminary NO GROWTH IN 1 DAY Resulted 09/12/17 11:00 Blood Peripheral Anaerobic Blood Culture - Preliminary NO GROWTH IN 1 DAY Resulted Administered Medications Medications (Trade) Dose Ordered Sig/Shyla Route PRN Reason Start Time Stop Time Status Last Admin Dose Admin Sodium Chloride (NS Flush) 2 ml UNSCH PRN IV FLUSH FLUSH AFTER USING IV ACCESS 09/06/17 13:00 09/08/17 22:44 Sodium Chloride (NS Flush) 2 ml BID IV FLUSH 09/06/17 21:00 09/14/17 08:52 Acetaminophen (Tylenol) 650 mg Q4H PRN PO headache, fever, pain 1-4 09/06/17 13:00 09/06/17 19:41 Cefepime HCl 2000 mg/Sodium Chloride 100 ml @ 200 mls/hr Q8H IV 09/06/17 16:00 09/14/17 08:52 Dronabinol (Marinol) 2.5 mg BID@11,16 PO 09/07/17 11:00 09/13/17 17:25 Azithromycin 500 mg/Sodium Chloride 250 ml @ 250 mls/hr Q24H IV 09/07/17 16:00 09/13/17 16:00 Vancomycin HCl 1000 mg/Sodium Chloride 250 ml @ 250 mls/hr Q12H IV 09/09/17 04:00 Future Hold 09/13/17 10:12 Warfarin Sodium (Coumadin) 5 mg DAILY@1600 PO 09/09/17 16:00 Future Hold 09/09/17 14:47 Vancomycin HCl (VANCOMYCIN for oral use only) 125 mg Q6H PO 09/09/17 12:00 09/14/17 06:11 Lactobacillus Acidophilus (Lactinex) 1 tab TID PO 09/11/17 09:00 09/14/17 08:52 Potassium Chloride (KCl) 30 meq Q12HR PO 09/12/17 21:00 09/14/17 08:52 Objective Remarks GENERAL: Chronically ill appearing male, lying supine in bed resting. SKIN: Warm and dry. bandage over right chest wall is c/d/i. HEAD: Normocephalic. EYES: No injection or drainage. NECK: Supple, trachea midline. CARDIOVASCULAR: Regular rate and rhythm RESPIRATORY: Breath sounds equal bilaterally. No accessory muscle use. GASTROINTESTINAL: Abdomen soft, non-tender, nondistended. EXTREMITIES: No cyanosis NEUROLOGICAL: awake and alert. normal spech. Assessment/Plan Problem List: (1) Sepsis ICD Codes: A41.9 - Sepsis, unspecified organism Plan: --ID following --BC + MRSA --++ vanco, cefepime, azithromycin (2) Pneumonia ICD Codes: J18.9 - Pneumonia, unspecified organism Plan: --on antibiotics --ID following. (3) Normocytic anemia ICD Codes: D64.9 - Anemia, unspecified Status: Acute Plan: --monitor and transfuse as needed. (4) Pulmonary emboli ICD Codes: I26.99 - Other pulmonary embolism without acute cor pulmonale Status: Chronic Plan: --on coumadin -- Currently on hold (5) Non-Hodgkin lymphoma ICD Codes: C85.90 - Non-Hodgkin lymphoma, unspecified, unspecified site Status: Acute Plan: --will hold chemotherapy this week d/t admission for pneumonia -- Will resume chemotherapy once patient stronger (6) C. difficile colitis ICD Codes: A04.7 - Enterocolitis due to Clostridium difficile Status: Resolved Plan: --on cefepime, azithromycin and po as well as IV vancomycin Assessment 47y/o male with high-grade diffuse large B-cell lymphoma admitted for pneumonia and nausea/vomiting as well as anemia. History of pulmonary embolism currently on anticoagulation. Hypertension. Protein-calorie malnutrition. Plan 1. encourage oob to chair today. 2. stop PO potassium, start IV potassium. patient reports PO potassium makes him sick. 3. continue antibiotics/supportive care Attending Statement The exam, history, and the medical decision-making described in the above note were completed with the assistance of the mid-level provider. I reviewed and agree with the findings presented. I attest that I had a [id number] encounter with the patient on the same day, and personally performed and documented my assessment and findings in the medical record. Still weak, + diarrhea. KCL po cause him to vomit. Not motivated to get out of bed. Continue to replace K. Continue abx per ID. Encourage to work with PT. Too weak for chemo at this time. Problem Qualifiers (1) Sepsis: Qualified Codes: A41.02 - Sepsis due to methicillin resistant Staphylococcus aureus (2) Non-Hodgkin lymphoma: Qualified Codes: C83.38 - Diffuse large b-cell lymphoma, lymph nodes of multiple sites Brenda Platt Sep 14, 2017 10:55 Ruslan Connelly MD Sep 14, 2017 19:05
[2017-09-14] MEDS: DRONABINOL 2.5 MG CAP PO SCH ×2 (12:10→15:35)
[2017-09-14 13:45] LABS: BASOPHIL % 0.5 % (0.0-2.0); EOSINOPHIL % 0.4 % (0.0-4.0); HEMOGLOBIN 10.6 GM/DL (13.0-17.0); LYMPH % 13.3 % (9.0-44.0); MEAN CELL VOLUME 79.9 FL (80.0-100.0); MEAN CORPUSCULAR HEMOGLOBIN 25.6 PG (27.0-34.0); MEAN CORPUSCULAR HGB CONC 32.1 % (32.0-36.0); MONO % 5.9 % (0.0-8.0); MONOCYTE # 0.4 TH/MM3 (0-0.9); NEUT % 79.9 % (16.0-70.0); PLATELET COUNT 316 TH/MM3 (150-450); RED BLOOD COUNT 4.13 MIL/MM3 (4.50-5.90); RED CELL DISTRIBUTION WIDTH 19.4 % (11.6-17.2); WHITE BLOOD COUNT 7.5 TH/MM3 (4.0-11.0)
--- NOTE | 2017-09-14 13:46 | HHI.PR ---
Subjective Remarks Continues to have loose stools, denies abdominal pain. Potassium normal this morning. Objective Vitals Vital Signs Date Time Temp Pulse Resp B/P (MAP) Pulse Ox O2 Delivery O2 Flow Rate FiO2 09/14/17 11:43 98.7 67 18 145/90 (108) 99 09/14/17 11:36 99 21 09/14/17 08:39 98.4 78 18 137/84 (101) 99 09/14/17 07:00 68 09/14/17 04:00 98.5 76 18 138/90 (106) 98 09/14/17 00:00 98.5 68 18 137/83 (101) 99 09/13/17 23:00 67 09/13/17 20:00 98.6 55 18 141/77 (98) 100 09/13/17 20:00 76 09/13/17 16:33 98.7 70 18 102/64 (77) 97 09/13/17 14:23 98.8 60 18 114/76 (89) 100 I/O 09/13/17 09/13/17 09/13/17 09/14/17 09/14/17 09/14/17 07:00 15:00 23:00 07:00 15:00 23:00 Intake Total 240 ml 930 ml 1250 ml 240 ml Output Total 425 ml 675 ml 475 ml 650 ml Balance -185 ml 255 ml 775 ml -410 ml Intake Oral 240 ml 480 ml 800 ml 240 ml IV Total 450 ml 450 ml Output Urine Total 425 ml 675 ml 475 ml 650 ml # Bowel Movements 1 2 2 3 Result Diagram: 09/13/17 0927 09/13/17 1630 Objective Remarks GENERAL: Cachectic appearing Afro-English English male patient. SKIN: Warm and dry. HEAD: Normocephalic. EYES: No scleral icterus. No injection or drainage. Oropharynx with thick exudates over teeth. NECK: Supple, trachea midline. No JVD or lymphadenopathy. CARDIOVASCULAR: Regular rate and rhythm without murmurs, gallops, or rubs. RESPIRATORY: Breath sounds equal bilaterally. No accessory muscle use. GASTROINTESTINAL: Abdomen soft, non-tender, nondistended. EXTREMITIES: No pedal edema. NEUROLOGICAL: Awake, alert, and oriented x 3. Non-focal. Procedures None. 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 difficile colitis ICD Code: A04.7 - Enterocolitis due to Clostridium difficile Status: Resolved (7) Sepsis ICD Code: A41.9 - Sepsis, unspecified organism (8) Debility ICD Code: R53.81 - Other malaise Status: Acute Assessment and Plan Mr. Werner is a 47-year-old male patient with a known medical history of non- Hodgkin B-cell lymphoma, HTN and history of PE who presented to the ED with complaints of generalized weakness, nausea, vomiting and cough x 1 week. Hemoglobin 6.6 on presentation to ED, 2 units PRBC have been ordered. Acutely febrile, temp 102.5. WBC 20.9. Sepsis, MRSA tricuspid valve endocarditis, MRSA bacteremia, bilateral pneumonia - - s/p Port removal 09/10. - on maintenance IVF NS @ 100 ml/hr. - CXR shows bilateral infiltrates CT Chest shows bilateral infiltrates as well. - Blood cultures growing MRSA -2-D echocardiogram with tricuspid valve vegetation - ID is following- Cefepime and Vancomycin and azithromycin. C. difficile positive. -C. difficile colitis On by mouth vancomycin per ID. Lactinex. Still has significant loose stools. 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 - Received Cytoxan and CHOP (cyclophosphamide, doxorubicin, vincristine and prednisone) - Subsequently, also received Rituxan and EPOCH (cyclophosphamide, doxorubicin, etoposide, vincristine, prednisone) - Last chemotherapy was 2 weeks prior to this admission. - Haptoglobin 617. LDH 196. Iron level 17, TIBC 105, ferritin 2200. - Heme/onc following. Microcytic hypochromic anemia: Hemoglobin 6.6/Hematocrit 19.6 on presentation. Hemoccult negative. s/p 2 units PRBC -Hb improved to 10-11 - monitor H&H Severe protein calorie malnutrition due to the colitis, chronically ill, poor appetite - cont ensure to diet. Hypokalemia: Due to GI loss. improved. ff BMP. by mouth potassium 30 mEq by mouth twice a day. Hypertension, chronic: BP 100/66 currently. No need for any antihypertensives. History of Pulmonary embolism - Had massive PE requiring tPA in April 2017. cont Warfarin - monitor INR. pharmacy following for coumadin management DVT Prophylaxis: SCDs. on coumadin Problem Qualifiers (1) Non-Hodgkin lymphoma: Qualified Codes: C83.38 - Diffuse large b-cell lymphoma, lymph nodes of multiple sites (2) Anemia: Qualified Codes: D64.9 - Anemia, unspecified (3) Sepsis: Qualified Codes: A41.02 - Sepsis due to methicillin resistant Staphylococcus aureus Arminda Diehl MD Sep 14, 2017 13:46
[2017-09-14 13:51] LABS: INTERNATIONAL NORMALIZED RATIO 3.6 RATIO; PROTHROMBIN TIME - PATIENT 36.7 SEC (9.8-11.6)
[2017-09-14 14:10] LABS: BICARBONATE 20.1 MEQ/L (21.0-32.0); CALCIUM 7.4 MG/DL (8.5-10.1); CREATININE 0.47 MG/DL (0.60-1.30); RANDOM VANCOMYCIN 7.8 COMMENT
[2017-09-14 14:24] LABS: CALCIUM-PROTEIN CORRECTED 8.6 MG/DL (8.5-10.1)
[2017-09-14] MEDS ORDERED: VANCOMYCIN 1,000 MG/NS 250 ML IV SCH ×4 (16:00→20:00)
[2017-09-14] MEDS: AZITHROMYCIN INJ 500 MG in SODIUM CHLOR 0.9% 250 ML INJ 250 ML IV SCH (16:36)
[2017-09-14] MEDS: NS + KCL 40 MEQ INJ 1,000 ML IV SCH (18:28)
[2017-09-15] VITALS (7 sets, daily range): BP systolic 138–151; BP diastolic 73–92; PULSE 58–79; RESP 16–19; TEMP 98.3–98.6; O2SAT 97–100
[2017-09-15] MEDS: VANCOMYCIN 500 MG VIAL (FOR ORAL USE ONLY) PO SCH ×3 (05:05→17:46)
[2017-09-15] MEDS: SODIUM CHLORIDE 0.9% FLUSH 10 ML FLUSH IV FLUSH SCH ×2 (08:06→19:59)
[2017-09-15] MEDS: LACTOBACILLUS ACIDOPHILUS TAB PO SCH ×3 (08:20→17:46)
[2017-09-15] MEDS: CEFEPIME INJ 2,000 MG in SODIUM CHLORIDE 0.9% INJ 100 ML IV SCH ×2 (08:20→16:58)
--- NOTE | 2017-09-15 09:30 | PD.ONC.PN ---
Subjective Subjective Remarks Afebrile overnight. Patient resting in bed in nad. Continues to have diarrhea. States he will get out of bed today. Objective Data Date Time Temp Pulse Resp B/P (MAP) Pulse Ox O2 Delivery O2 Flow Rate FiO2 09/15/17 08:23 98.4 58 18 150/73 (98) 98 09/15/17 07:00 73 09/15/17 04:59 98.6 71 16 151/91 (111) 100 09/14/17 23:41 98.3 71 16 140/93 (109) 100 09/14/17 20:00 79 09/14/17 19:47 98.4 82 16 119/83 (95) 100 09/14/17 17:33 99 21 09/14/17 15:36 98.3 75 18 125/83 (97) 100 09/14/17 11:43 98.7 67 18 145/90 (108) 99 09/14/17 11:36 99 21 09/15/17 09/15/17 09/15/17 07:00 15:00 23:00 Intake Total 475 ml Output Total 450 ml Balance 25 ml Result Diagram: 09/14/17 1330 09/14/17 1330 Laboratory Results Laboratory Tests Test 09/14/17 13:30 White Blood Count 7.5 TH/MM3 Red Blood Count 4.13 MIL/MM3 Hemoglobin 10.6 GM/DL Hematocrit 33.0 % Mean Corpuscular Volume 79.9 FL Mean Corpuscular Hemoglobin 25.6 PG Mean Corpuscular Hemoglobin Concent 32.1 % Red Cell Distribution Width 19.4 % Platelet Count 316 TH/MM3 Mean Platelet Volume 8.0 FL Neutrophils (%) (Auto) 79.9 % Lymphocytes (%) (Auto) 13.3 % Monocytes (%) (Auto) 5.9 % Eosinophils (%) (Auto) 0.4 % Basophils (%) (Auto) 0.5 % Neutrophils # (Auto) 6.0 TH/MM3 Lymphocytes # (Auto) 1.0 TH/MM3 Monocytes # (Auto) 0.4 TH/MM3 Eosinophils # (Auto) 0.0 TH/MM3 Basophils # (Auto) 0.0 TH/MM3 CBC Comment DIFF FINAL Differential Comment Prothrombin Time 36.7 SEC Prothromb Time International Ratio 3.6 RATIO Blood Urea Nitrogen 2 MG/DL Creatinine 0.47 MG/DL Random Glucose 87 MG/DL Total Protein 5.0 GM/DL Calcium Level 7.4 MG/DL Sodium Level 141 MEQ/L Potassium Level 3.3 MEQ/L Chloride Level 112 MEQ/L Carbon Dioxide Level 20.1 MEQ/L Anion Gap 9 MEQ/L Estimat Glomerular Filtration Rate 230 ML/MIN Protein Corrected Calcium 8.6 MG/DL Random Vancomycin Level 7.8 COMMENT Culture Results Microbiology Date/Time Source Procedure Growth Status 09/13/17 09:27 Blood Peripheral Aerobic Blood Culture - Preliminary NO GROWTH IN 1 DAY Resulted 09/13/17 09:27 Blood Peripheral Anaerobic Blood Culture - Preliminary NO GROWTH IN 1 DAY Resulted 09/12/17 11:00 Blood Peripheral Aerobic Blood Culture - Preliminary NO GROWTH IN 2 DAYS Resulted 09/12/17 11:00 Blood Peripheral Anaerobic Blood Culture - Preliminary NO GROWTH IN 2 DAYS Resulted Administered Medications Medications (Trade) Dose Ordered Sig/Shyla Route PRN Reason Start Time Stop Time Status Last Admin Dose Admin Sodium Chloride (NS Flush) 2 ml UNSCH PRN IV FLUSH FLUSH AFTER USING IV ACCESS 09/06/17 13:00 09/08/17 22:44 Sodium Chloride (NS Flush) 2 ml BID IV FLUSH 09/06/17 21:00 09/14/17 19:54 Acetaminophen (Tylenol) 650 mg Q4H PRN PO headache, fever, pain 1-4 09/06/17 13:00 09/06/17 19:41 Cefepime HCl 2000 mg/Sodium Chloride 100 ml @ 200 mls/hr Q8H IV 09/06/17 16:00 09/15/17 08:20 Dronabinol (Marinol) 2.5 mg BID@16 PO 09/07/17 11:00 09/14/17 15:35 Azithromycin 500 mg/Sodium Chloride 250 ml @ 250 mls/hr Q24H IV 09/07/17 16:00 09/14/17 16:36 Warfarin Sodium (Coumadin) 5 mg DAILY@1600 PO 09/09/17 16:00 Future Hold 09/09/17 14:47 Vancomycin HCl (VANCOMYCIN for oral use only) 125 mg Q6H PO 09/09/17 12:00 09/15/17 05:05 Lactobacillus Acidophilus (Lactinex) 1 tab TID PO 09/11/17 09:00 12/5/17 08:20 Potassium Chloride/Sodium Chloride 1,000 ml @ 42 mls/hr [id number] IV 09/14/17 15:15 09/14/17 18:28 Vancomycin HCl 1000 mg/Sodium Chloride 250 ml @ 250 mls/hr Q24H IV 09/14/17 20:00 09/14/17 19:57 Objective Remarks GENERAL: Chronically ill appearing male, lying in bed in nad. SKIN: Warm and dry. HEAD: Normocephalic. EYES: No injection or drainage. NECK: Supple, trachea midline. CARDIOVASCULAR: Regular rate and rhythm RESPIRATORY: Breath sounds equal bilaterally. No accessory muscle use. GASTROINTESTINAL: Abdomen soft, non-tender, nondistended. EXTREMITIES: No cyanosis NEUROLOGICAL: awake and alert. normal speech. moving all extremities. Assessment/Plan Problem List: (1) Sepsis ICD Codes: A41.9 - Sepsis, unspecified organism Plan: --ID following --BC + MRSA --++ vanco, cefepime, azithromycin (2) Pneumonia ICD Codes: J18.9 - Pneumonia, unspecified organism Plan: --on antibiotics --ID following. (3) Normocytic anemia ICD Codes: D64.9 - Anemia, unspecified Status: Acute Plan: --monitor and transfuse as needed. (4) Pulmonary emboli ICD Codes: I26.99 - Other pulmonary embolism without acute cor pulmonale Status: Chronic Plan: --on coumadin -- Currently on hold (5) Non-Hodgkin lymphoma ICD Codes: C85.90 - Non-Hodgkin lymphoma, unspecified, unspecified site Status: Acute Plan: --will hold chemotherapy this week d/t admission for pneumonia -- Will resume chemotherapy once patient stronger (6) C. difficile colitis ICD Codes: A04.7 - Enterocolitis due to Clostridium difficile Status: Resolved Plan: --on cefepime, azithromycin and po as well as IV vancomycin Assessment 47y/o male with high-grade diffuse large B-cell lymphoma admitted for pneumonia and nausea/vomiting as well as anemia. History of pulmonary embolism currently on anticoagulation. Hypertension. Protein-calorie malnutrition. Plan 1. await labs 2. continue antibiotics Attending Statement The exam, history, and the medical decision-making described in the above note were completed with the assistance of the mid-level provider. I reviewed and agree with the findings presented. I attest that I had a [id number] encounter with the patient on the same day, and personally performed and documented my assessment and findings in the medical record. Still weak. Not motivated to get of bed and work with PT. Still has diarrhea. Repeat C.diff test and if it is negative, can start imodium. Diarrhea may be due to abx. Once stable, will start another cycle of EPOCH chemo. Will need PICC line for chemotx. Problem Qualifiers (1) Sepsis: Qualified Codes: A41.02 - Sepsis due to methicillin resistant Staphylococcus aureus (2) Non-Hodgkin lymphoma: Qualified Codes: C83.38 - Diffuse large b-cell lymphoma, lymph nodes of multiple sites Brenda Platt Sep 15, 2017 09:30 Ruslan Connelly MD Sep 15, 2017 10:24
[2017-09-15] MEDS: DRONABINOL 2.5 MG CAP PO SCH ×2 (10:50→16:00)
[2017-09-15 12:34] LABS: AUTOMATED NEUTROPHIL # 6.9 TH/MM3 (1.8-7.7); BASOPHIL # 0.1 TH/MM3 (0-0.2); BASOPHIL % 0.8 % (0.0-2.0); EOSINOPHIL % 0.3 % (0.0-4.0); HEMATOCRIT 30.5 % (39.0-51.0); LYMPH % 12.1 % (9.0-44.0); MEAN CELL VOLUME 80.4 FL (80.0-100.0); MEAN CORPUSCULAR HEMOGLOBIN 26.4 PG (27.0-34.0); MEAN CORPUSCULAR HGB CONC 32.9 % (32.0-36.0); MEAN PLATELET VOLUME 8.5 FL (7.0-11.0); MONO % 4.3 % (0.0-8.0); MONOCYTE # 0.4 TH/MM3 (0-0.9); NEUT % 82.5 % (16.0-70.0); PLATELET COUNT 295 TH/MM3 (150-450); RED BLOOD COUNT 3.79 MIL/MM3 (4.50-5.90); RED CELL DISTRIBUTION WIDTH 19.6 % (11.6-17.2); WHITE BLOOD COUNT 8.4 TH/MM3 (4.0-11.0)
[2017-09-15 12:45] LABS: INTERNATIONAL NORMALIZED RATIO 2.7 RATIO; PROTHROMBIN TIME - PATIENT 27.4 SEC (9.8-11.6)
[2017-09-15 12:56] LABS: BICARBONATE 20.7 MEQ/L (21.0-32.0); CALCIUM 7.7 MG/DL (8.5-10.1); CREATININE 0.43 MG/DL (0.60-1.30)
--- NOTE | 2017-09-15 14:03 | HHI.PR ---
Subjective Remarks patient denies pain or dyspnea. Potassium level being repleted. Objective Vitals Vital Signs Date Time Temp Pulse Resp B/P (MAP) Pulse Ox O2 Delivery O2 Flow Rate FiO2 09/15/17 08:23 98.4 58 18 150/73 (98) 98 09/15/17 07:00 73 09/15/17 04:59 98.6 71 16 151/91 (111) 100 09/14/17 23:41 98.3 71 16 140/93 (109) 100 09/14/17 20:00 79 09/14/17 19:47 98.4 82 16 119/83 (95) 100 09/14/17 17:33 99 21 09/14/17 15:36 98.3 75 18 125/83 (97) 100 I/O 09/14/17 09/14/17 09/14/17 09/15/17 09/15/17 09/15/17 07:00 15:00 23:00 07:00 15:00 23:00 Intake Total 240 ml 1700 ml 475 ml Output Total 650 ml 925 ml 450 ml Balance -410 ml 775 ml 25 ml Intake Oral 240 ml 1200 ml 150 ml IV Total 500 ml 325 ml Output Urine Total 650 ml 925 ml 450 ml # Bowel Movements 3 5 2 Result Diagram: 09/15/17 1129 09/15/17 1129 Objective Remarks GENERAL: Cachectic chronically ill appearing -[place] Citizen [place] male patient. SKIN: Warm and dry. HEAD: Normocephalic. EYES: No scleral icterus. No injection or drainage. NECK: Supple, trachea midline. No JVD or lymphadenopathy. CARDIOVASCULAR: Regular rate and rhythm without murmurs, gallops, or rubs. RESPIRATORY: Breath sounds equal bilaterally. No accessory muscle use. GASTROINTESTINAL: Abdomen soft, non-tender, nondistended. EXTREMITIES: No pedal edema. NEUROLOGICAL: Awake, alert, and oriented x 3. Non-focal. Procedures None. 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 difficile colitis ICD Code: A04.7 - Enterocolitis due to Clostridium difficile Status: Resolved (7) Sepsis ICD Code: A41.9 - Sepsis, unspecified organism (8) Debility ICD Code: R53.81 - Other malaise Status: Acute Assessment and Plan Mr. Werner is a 47-year-old male patient with a known medical history of non- Hodgkin B-cell lymphoma, HTN and history of PE who presented to the ED with complaints of generalized weakness, nausea, vomiting and cough x 1 week. Hemoglobin 6.6 on presentation to ED, 2 units PRBC have been ordered. Acutely febrile, temp 102.5. WBC 20.9. Sepsis, MRSA tricuspid valve endocarditis, MRSA bacteremia, bilateral pneumonia - - s/p Port removal 09/10. - CXR shows bilateral infiltrates CT Chest shows bilateral infiltrates as well. - Blood cultures growing MRSA -2-D echocardiogram with tricuspid valve vegetation - ID is following- Cefepime and Vancomycin and azithromycin. C. difficile positive. -C. difficile colitis On by mouth vancomycin per ID - until roughly Sep 26. Lactinex. Still has significant loose stools. 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 - Received Cytoxan and CHOP (cyclophosphamide, doxorubicin, vincristine and prednisone) - Subsequently, also received Rituxan and EPOCH (cyclophosphamide, doxorubicin, etoposide, vincristine, prednisone) - Last chemotherapy was 2 weeks prior to this admission. - Haptoglobin 617. LDH 196. Iron level 17, TIBC 105, ferritin 2200. - Heme/onc following. Microcytic hypochromic anemia: Hemoglobin 6.6/Hematocrit 19.6 on presentation. Hemoccult negative. s/p 2 units PRBC -Hb improved to 10-11 - monitor H&H Severe protein calorie malnutrition due to the colitis, chronically ill, poor appetite - cont ensure to diet. Persistent, severe hypokalemia: Due to GI loss. Kcl 40 meq IV today. ff BMP. by mouth potassium 30 mEq by mouth twice a day. Hypertension, chronic: BP 100/66 currently. No need for any antihypertensives. History of Pulmonary embolism - Had massive PE requiring tPA in April 2017. cont Warfarin - monitor INR. pharmacy following for coumadin management DVT Prophylaxis: SCDs. on coumadin Problem Qualifiers (1) Non-Hodgkin lymphoma: Qualified Codes: C83.38 - Diffuse large b-cell lymphoma, lymph nodes of multiple sites (2) Anemia: Qualified Codes: D64.9 - Anemia, unspecified (3) Sepsis: Qualified Codes: A41.02 - Sepsis due to methicillin resistant Staphylococcus aureus Arminda Diehl MD Sep 15, 2017 14:03
[2017-09-15] MEDS: VANCOMYCIN 1,000 MG/NS 250 ML IV SCH ×2 (14:48)
--- NOTE | 2017-09-15 16:31 | HHI.IDPN ---
Subjective Subjective Remarks cont to have diarrhea 7 BMs/day no fever On RA + non occlusiove thrombus in jugular Last blood clx are negative @ 2-3 days 2D echo positive for TV endocarditis Antibiotics vanco IV cefepime azithro flagyl Allergies: Coded Allergies: Milk Containing Products (Verified Allergy, Mild, diarrhea, 06/11/17) Objective . Vital Signs Date Time Temp Pulse Resp B/P (MAP) Pulse Ox O2 Delivery O2 Flow Rate FiO2 09/15/17 15:29 98.3 61 19 138/92 (107) 100 09/15/17 08:23 98.4 58 18 150/73 (98) 98 09/15/17 07:00 73 09/15/17 04:59 98.6 71 16 151/91 (111) 100 09/14/17 23:41 98.3 71 16 140/93 (109) 100 09/14/17 20:00 79 09/14/17 19:47 98.4 82 16 119/83 (95) 100 09/14/17 17:33 99 21 . Laboratory Tests Test 09/14/17 13:30 09/15/17 11:29 White Blood Count 7.5 TH/MM3 8.4 TH/MM3 Red Blood Count 4.13 MIL/MM3 3.79 MIL/MM3 Hemoglobin 10.6 GM/DL 10.0 GM/DL Hematocrit 33.0 % 30.5 % Mean Corpuscular Volume 79.9 FL 80.4 FL Mean Corpuscular Hemoglobin 25.6 PG 26.4 PG Mean Corpuscular Hemoglobin Concent 32.1 % 32.9 % Red Cell Distribution Width 19.4 % 19.6 % Platelet Count 316 TH/MM3 295 TH/MM3 Mean Platelet Volume 8.0 FL 8.5 FL Neutrophils (%) (Auto) 79.9 % 82.5 % Lymphocytes (%) (Auto) 13.3 % 12.1 % Monocytes (%) (Auto) 5.9 % 4.3 % Eosinophils (%) (Auto) 0.4 % 0.3 % Basophils (%) (Auto) 0.5 % 0.8 % Neutrophils # (Auto) 6.0 TH/MM3 6.9 TH/MM3 Lymphocytes # (Auto) 1.0 TH/MM3 1.0 TH/MM3 Monocytes # (Auto) 0.4 TH/MM3 0.4 TH/MM3 Eosinophils # (Auto) 0.0 TH/MM3 0.0 TH/MM3 Basophils # (Auto) 0.0 TH/MM3 0.1 TH/MM3 CBC Comment DIFF FINAL DIFF FINAL Differential Comment Laboratory Tests Test 09/13/17 16:30 09/14/17 13:30 09/15/17 11:29 Blood Urea Nitrogen 2 MG/DL 2 MG/DL 2 MG/DL Creatinine 0.48 MG/DL 0.47 MG/DL 0.43 MG/DL Random Glucose 84 MG/DL 87 MG/DL 78 MG/DL Calcium Level 7.7 MG/DL 7.4 MG/DL 7.7 MG/DL Sodium Level 141 MEQ/L 141 MEQ/L 142 MEQ/L Potassium Level 4.0 MEQ/L 3.3 MEQ/L 2.7 MEQ/L Chloride Level 113 MEQ/L 112 MEQ/L 111 MEQ/L Carbon Dioxide Level 19.3 MEQ/L 20.1 MEQ/L 20.7 MEQ/L Anion Gap 9 MEQ/L 9 MEQ/L 10 MEQ/L Estimat Glomerular Filtration Rate 225 ML/MIN 230 ML/MIN 255 ML/MIN Total Protein 5.0 GM/DL Protein Corrected Calcium 8.6 MG/DL Microbiology Date/Time Source Procedure Growth Status 09/13/17 09:27 Blood Peripheral Aerobic Blood Culture - Preliminary NO GROWTH IN 2 DAYS Resulted 09/13/17 09:27 Blood Peripheral Anaerobic Blood Culture - Preliminary NO GROWTH IN 2 DAYS Resulted Imaging Last Impressions Chest X-Ray 09/13/17 0600 Signed Impressions: Service Date/Time: Wednesday, September 13, 2017 04:42 - CONCLUSION: 1. No pneumothorax is visualized. There is mild bibasilar airspace opacity, left greater than right. 2. Right paratracheal and subcarinal masses are stable. Tacos Perez MD Upper Extremity Ultrasound 09/10/17 0000 Signed Impressions: Service Date/Time: August 13:56 - CONCLUSION: 1. Nonocclusive thrombus in the jugular vein. 2. The other vessels are patent. 3. Solid lobular mass in the supraclavicular region consistent with adenopathy in this patient with history of lymphoma. Goldy Suarez MD Port Line Revision 09/08/17 0000 Signed Impressions: Service Date/Time: Friday, September 08, 2017 00:00 - CONCLUSION: Uncomplicated port removal as above. Adama Briceño MD Chest CT 09/06/17 0000 Signed Impressions: Service Date/Time: Wednesday, September 06, 2017 15:57 - CONCLUSION: 1. Patchy bilateral air space consolidation in both lung bases. Differential diagnosis includes bronchopneumonia and aspiration. Small pleural effusions improved from April. 2. Extensive mediastinal adenopathy also improved from April. Travis Ruffni MD Physical Exam CONSTITUTIONAL/GENERAL: This is a thin poorly nourished chronically ill appearing patient, in no apparent distress. Breathes better , off O2 TUBES/LINES/DRAINS: SKIN: No jaundice, rashes, or lesions. Skin temperature appropriate. Not diaphoretic. Alopecia ENT: Hearing grossly normal. Nose without bleeding or purulent drainage. Oral mucosae w/o mucositis poor dentition CARDIOVASCULAR: Regular rate and rhythm without murmurs, gallops, or rubs. No JVD. Peripheral pulses symmetric. RESPIRATORY/CHEST: Symmetric, unlabored respirations. Clear to auscultation. Breath sounds equal bilaterally. No wheezes, rales, or rhonchi. GASTROINTESTINAL: Abdomen soft, non-tender, midly distended. No hepato- splenomegaly, or palpable masses. No guarding. Bowel sounds present. MUSCULOSKELETAL: Extremities without clubbing, cyanosis, or edema. NEUROLOGICAL: Awake and alert. Motor and sensory grossly within normal limits. Follows commands. Clear speech. Moves all extremities. PSYCHIATRIC: No obvious anxiety/depression. no apparent hallucinations or other psychotic thought process. 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 Atypical PNA C.diff, prior exposure to levaquine : pesistent diarrhea leukocytosis - resolved cont vanco x 6 weeks after blood clx clear (thrombus) dc cefepime complete azithromycin x 5 days con PO vancomycin @ 500 ASP: vanco was chosen over flagyl 2/2 clinical idication of severe disease: 9 BMs/day, WBC [address] PICC if blood clx remain negative @ 3 days dw Hem/onc service Kelsie Hong MD Sep 15, 2017 16:31
[2017-09-15] MEDS: WARFARIN SOD 4 MG TAB PO SCH (17:46)
[2017-09-15] MEDS: POTASSIUM CHLOR 20 MEQ PREMIX 100 ML IV SCH ×2 (17:46→20:56)
[2017-09-16] VITALS (8 sets, daily range): BP systolic 128–154; BP diastolic 82–98; PULSE 61–78; RESP 15–20; TEMP 98.2–98.7; O2SAT 97–100
[2017-09-16] MEDS: VANCOMYCIN 500 MG VIAL (FOR ORAL USE ONLY) PO SCH ×4 (00:55→17:58)
[2017-09-16] MEDS: SODIUM CHLORIDE 0.9% FLUSH 10 ML FLUSH IV FLUSH SCH ×2 (09:00→19:41)
[2017-09-16] MEDS: LACTOBACILLUS ACIDOPHILUS TAB PO SCH ×3 (10:47→17:58)
[2017-09-16] MEDS: VANCOMYCIN 1,000 MG/NS 250 ML IV SCH ×2 (10:47)
[2017-09-16] MEDS: NS + KCL 40 MEQ INJ 1,000 ML IV SCH ×2 (10:48→19:46)
[2017-09-16] MEDS: DRONABINOL 2.5 MG CAP PO SCH ×2 (11:00→14:47)
--- NOTE | 2017-09-16 12:15 | HHI.PR ---
Subjective Remarks Patient denies pain, fever, dyspnea or cough. He continues to have loose stools. BMP pending today. Objective Vitals Vital Signs Date Time Temp Pulse Resp B/P (MAP) Pulse Ox O2 Delivery O2 Flow Rate FiO2 09/16/17 11:15 98.2 61 20 151/92 (111) 100 09/16/17 10:46 97 09/16/17 08:00 64 09/16/17 08:00 98.2 69 20 143/89 (107) 100 09/16/17 04:48 98.5 66 15 154/98 (116) 100 09/16/17 00:54 98.6 78 16 141/86 (104) 99 09/15/17 21:59 97 Nasal Cannula 2.00 09/15/17 20:05 75 09/15/17 19:38 98.4 79 16 143/77 (99) 100 09/15/17 15:29 98.3 61 19 138/92 (107) 100 I/O 09/15/17 09/15/17 09/15/17 09/16/17 09/16/17 09/16/17 07:00 15:00 23:00 07:00 15:00 23:00 Intake Total 475 ml 1290 ml 345 ml Output Total 450 ml 450 ml 500 ml Balance 25 ml 840 ml -155 ml Intake Oral 150 ml 840 ml IV Total 325 ml 450 ml 345 ml Output Urine Total 450 ml 450 ml 500 ml # Voids 1 # Bowel Movements 2 5 3 Result Diagram: 09/15/17 1129 09/15/17 1129 Objective Remarks GENERAL: Cachectic chronically ill appearing -Citizen Of [place] Citizen [place] male patient. SKIN: Warm and dry. HEAD: Normocephalic. EYES: No scleral icterus. No injection or drainage. NECK: Supple, trachea midline. No JVD or lymphadenopathy. CARDIOVASCULAR: Regular rate and rhythm without murmurs, gallops, or rubs. RESPIRATORY: Breath sounds equal bilaterally. No accessory muscle use. GASTROINTESTINAL: Abdomen soft, non-tender, nondistended. EXTREMITIES: No pedal edema. NEUROLOGICAL: Awake, alert, and oriented x 3. Non-focal. Procedures None. 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 difficile colitis ICD Code: A04.7 - Enterocolitis due to Clostridium difficile Status: Resolved (7) Sepsis ICD Code: A41.9 - Sepsis, unspecified organism (8) Debility ICD Code: R53.81 - Other malaise Status: Acute Assessment and Plan Mr. Werner is a 47-year-old male patient with a known medical history of non- Hodgkin B-cell lymphoma, HTN and history of PE who presented to the ED with complaints of generalized weakness, nausea, vomiting and cough x 1 week. Hemoglobin 6.6 on presentation to ED, 2 units PRBC have been ordered. Acutely febrile, temp 102.5. WBC 20.9. Sepsis, MRSA tricuspid valve endocarditis, MRSA bacteremia, bilateral pneumonia - - s/p Port removal 09/10. - CXR shows bilateral infiltrates CT Chest shows bilateral infiltrates as well. - Blood cultures growing MRSA -Status post cefepime and Zithromax course -2-D echocardiogram with tricuspid valve vegetation - ID is following-Vancomycin for 6 weeks - Per ID Dr. Gely estevez to place PICC line if 09/13 blood cultures remain negative -C. difficile colitis On by mouth vancomycin per ID - until roughly Sep 26. Lactinex. Still has significant loose stools. 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 - Received Cytoxan and CHOP (cyclophosphamide, doxorubicin, vincristine and prednisone) - Subsequently, also received Rituxan and EPOCH (cyclophosphamide, doxorubicin, etoposide, vincristine, prednisone) - Last chemotherapy was 2 weeks prior to this admission. - Haptoglobin 617. LDH 196. Iron level 17, TIBC 105, ferritin 2200. - Heme/onc following. Microcytic hypochromic anemia: Hemoglobin 6.6/Hematocrit 19.6 on presentation. Hemoccult negative. s/p 2 units PRBC -Hb improved to 10-11 - monitor H&H Severe protein calorie malnutrition due to the colitis, chronically ill, poor appetite - cont ensure to diet. Persistent, severe hypokalemia: Due to GI loss. BMP pending today. Continue by mouth potassium 30 mEq by mouth twice a day - he has poor absorption and is requiring IV supplementation. Hypertension, chronic: BP 100/66 currently. No need for any antihypertensives. 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 cont Warfarin - monitor INR. pharmacy following for coumadin management DVT Prophylaxis: SCDs. on coumadin Discharge Planning To be determined Problem Qualifiers (1) Non-Hodgkin lymphoma: Qualified Codes: C83.38 - Diffuse large b-cell lymphoma, lymph nodes of multiple sites (2) Anemia: Qualified Codes: D64.9 - Anemia, unspecified (3) Sepsis: Qualified Codes: A41.02 - Sepsis due to methicillin resistant Staphylococcus aureus Arminda Diehl MD Sep 16, 2017 12:15
--- NOTE | 2017-09-16 14:30 | PD.ONC.PN ---
Subjective Subjective Remarks Afebrile Feels like he is having less bowel movements Reports he got up to the chair at bedside yesterday Has not worked with physical therapy yet today Per RN he is refusing to let lab stick him for INR. Objective Data Date Time Temp Pulse Resp B/P (MAP) Pulse Ox O2 Delivery O2 Flow Rate FiO2 09/16/17 11:15 98.2 61 20 151/92 (111) 100 09/16/17 10:46 97 09/16/17 08:00 64 09/16/17 08:00 98.2 69 20 143/89 (107) 100 09/16/17 04:48 98.5 66 15 154/98 (116) 100 09/16/17 00:54 98.6 78 16 141/86 (104) 99 09/15/17 21:59 97 Nasal Cannula 2.00 09/15/17 20:05 75 09/15/17 19:38 98.4 79 16 143/77 (99) 100 09/15/17 15:29 98.3 61 19 138/92 (107) 100 09/16/17 09/16/17 09/16/17 06:59 14:59 22:59 Intake Total 345 ml Output Total 500 ml Balance -155 ml Result Diagram: 09/15/17 1129 09/15/17 1129 Administered Medications Medications (Trade) Dose Ordered Sig/Shyla Route PRN Reason Start Time Stop Time Status Last Admin Dose Admin Sodium Chloride (NS Flush) 2 ml UNSCH PRN IV FLUSH FLUSH AFTER USING IV ACCESS 09/06/17 13:00 09/08/17 22:44 Sodium Chloride (NS Flush) 2 ml BID IV FLUSH 09/06/17 21:00 09/14/17 19:54 Acetaminophen (Tylenol) 650 mg Q4H PRN PO headache, fever, pain 1-4 09/06/17 13:00 09/06/17 19:41 Dronabinol (Marinol) 2.5 mg BID@,16 PO 09/07/17 11:00 09/15/17 10:50 Vancomycin HCl (VANCOMYCIN for oral use only) 125 mg Q6H PO 09/09/17 12:00 09/16/17 05:00 Lactobacillus Acidophilus (Lactinex) 1 tab TID PO 09/11/17 09:00 09/16/17 10:47 Potassium Chloride/Sodium Chloride 1,000 ml @ 42 mls/hr [id number] IV 09/14/17 15:15 09/16/17 10:48 Vancomycin HCl 1000 mg/Sodium Chloride 250 ml @ 250 mls/hr Q18H IV 09/15/17 15:00 09/16/17 10:47 Warfarin Sodium (Coumadin) 4 mg DAILY@1600 PO 09/15/17 18:00 09/15/17 17:46 Objective Remarks GENERAL: Chronically ill appearing male, lying in bed in no acute distress SKIN: Warm and dry. HEAD: Normocephalic. EYES: No injection or drainage. NECK: Supple, trachea midline. CARDIOVASCULAR: Regular rate and rhythm RESPIRATORY: Breath sounds equal bilaterally. No accessory muscle use. GASTROINTESTINAL: Abdomen soft, non-tender, nondistended. EXTREMITIES: No cyanosis NEUROLOGICAL: Awake and alert. Normal speech. No obvious focal deficit. Assessment/Plan Problem List: (1) Sepsis ICD Codes: A41.9 - Sepsis, unspecified organism Plan: --ID following --BC + MRSA --++ vanco, cefepime, azithromycin (2) Pneumonia ICD Codes: J18.9 - Pneumonia, unspecified organism Plan: --on antibiotics --ID following. (3) Normocytic anemia ICD Codes: D64.9 - Anemia, unspecified Status: Acute Plan: --monitor and transfuse as needed. (4) Pulmonary emboli ICD Codes: I26.99 - Other pulmonary embolism without acute cor pulmonale Status: Chronic Plan: --on coumadin -- Currently on hold (5) Non-Hodgkin lymphoma ICD Codes: C85.90 - Non-Hodgkin lymphoma, unspecified, unspecified site Status: Acute Plan: --will hold chemotherapy this week d/t admission for pneumonia -- Will resume chemotherapy once patient stronger (6) C. difficile colitis ICD Codes: A04.7 - Enterocolitis due to Clostridium difficile Status: Resolved Plan: --on po as well as IV vancomycin Assessment 47y/o male with high-grade diffuse large B-cell lymphoma admitted for pneumonia and nausea/vomiting as well as anemia. History of pulmonary embolism currently on anticoagulation. Hypertension. Protein-calorie malnutrition. Plan 1. Continue physical therapy 2. Monitor CBC, BMP 3. Pt refusing INR today. Hold Coumadin for today. 4. Place PICC line when cleared by ID Attending Statement The exam, history, and the medical decision-making described in the above note were completed with the assistance of the mid-level provider. I reviewed and agree with the findings presented. I attest that I had a [id number] encounter with the patient on the same day, and personally performed and documented my assessment and findings in the medical record.Sat in chair yesterday, still has loose stool but better. Repeat BCx 09/12 negative to date. Continue abx per ID. Plan to give another cycle of chemo when more stable. Problem Qualifiers (1) Sepsis: Qualified Codes: A41.02 - Sepsis due to methicillin resistant Staphylococcus aureus (2) Non-Hodgkin lymphoma: Qualified Codes: C83.38 - Diffuse large b-cell lymphoma, lymph nodes of multiple sites Tia Montenegro Sep 16, 2017 14:30 Ruslan Connelly MD Sep 16, 2017 16:07
[2017-09-16] MEDS: WARFARIN SOD 4 MG TAB PO SCH (14:47)
[2017-09-16] MEDS: metroNIDAZOLE 500 MG INJ 100 ML IV SCH (17:58)
[2017-09-17] VITALS (8 sets, daily range): BP systolic 149–161; BP diastolic 85–95; PULSE 67–81; RESP 16–18; TEMP 97.5–98.9; O2SAT 98–100
[2017-09-17] MEDS: metroNIDAZOLE 500 MG INJ 100 ML IV SCH ×3 (00:15→17:56)
[2017-09-17] MEDS: VANCOMYCIN 500 MG VIAL (FOR ORAL USE ONLY) PO SCH ×4 (00:15→17:56)
[2017-09-17] MEDS ORDERED: PHARMACY ORDERED LAB ONE (02:45)
[2017-09-17 04:06] LABS: AUTOMATED NEUTROPHIL # 6.8 TH/MM3 (1.8-7.7); BASOPHIL # 0.1 TH/MM3 (0-0.2); BASOPHIL % 0.9 % (0.0-2.0); EOSINOPHIL % 0.3 % (0.0-4.0); HEMATOCRIT 29.2 % (39.0-51.0); HEMOGLOBIN 9.9 GM/DL (13.0-17.0); LYMPH % 10.9 % (9.0-44.0); LYMPHOCYTE # 0.9 TH/MM3 (1.0-4.8); MEAN CORPUSCULAR HEMOGLOBIN 27.5 PG (27.0-34.0); MEAN CORPUSCULAR HGB CONC 33.9 % (32.0-36.0); MEAN PLATELET VOLUME 8.3 FL (7.0-11.0); MONO % 4.7 % (0.0-8.0); MONOCYTE # 0.4 TH/MM3 (0-0.9); NEUT % 83.2 % (16.0-70.0); PLATELET COUNT 305 TH/MM3 (150-450); RED CELL DISTRIBUTION WIDTH 19.7 % (11.6-17.2); WHITE BLOOD COUNT 8.2 TH/MM3 (4.0-11.0)
[2017-09-17 04:15] LABS: INTERNATIONAL NORMALIZED RATIO 3.3 RATIO; PROTHROMBIN TIME - PATIENT 32.8 SEC (9.8-11.6)
[2017-09-17] MEDS: VANCOMYCIN 1,000 MG/NS 250 ML IV SCH ×4 (04:28→20:58)
[2017-09-17 04:38] LABS: BICARBONATE 23.3 MEQ/L (21.0-32.0); CALCIUM 7.5 MG/DL (8.5-10.1); CREATININE 0.41 MG/DL (0.60-1.30); MAGNESIUM 1.3 MG/DL (1.5-2.5)
[2017-09-17 04:39] LABS: VANCOMYCIN TROUGH 13.4 MCG/ML (5.0-10.0)
[2017-09-17] MEDS: SODIUM CHLORIDE 0.9% FLUSH 10 ML FLUSH IV FLUSH SCH ×2 (08:19→20:58)
[2017-09-17] MEDS: LACTOBACILLUS ACIDOPHILUS TAB PO SCH ×3 (08:19→17:56)
--- NOTE | 2017-09-17 09:35 | PD.ONC.PN ---
Subjective Subjective Remarks Afebrile Patient reports he is having about the same number of bowel movements Denies pain Objective Data Date Time Temp Pulse Resp B/P (MAP) Pulse Ox O2 Delivery O2 Flow Rate FiO2 09/17/17 09:03 98 21 09/17/17 08:16 98.4 69 18 160/94 (116) 99 09/17/17 04:28 98.4 69 16 161/94 (116) 100 09/17/17 00:13 98.0 67 16 154/85 (108) 100 09/16/17 22:19 21 09/16/17 20:05 66 09/16/17 19:44 98.7 72 16 128/82 (97) 100 09/16/17 14:52 98.5 67 20 148/91 (110) 100 09/16/17 11:15 98.2 61 20 151/92 (111) 100 09/16/17 10:46 97 09/17/17 09/17/17 09/17/17 07:00 15:00 23:00 Intake Total 830 ml Output Total 600 ml Balance 230 ml Result Diagram: 09/17/17 0345 09/17/17 0345 Laboratory Results Laboratory Tests Test 09/17/17 03:45 White Blood Count 8.2 TH/MM3 Red Blood Count 3.60 MIL/MM3 Hemoglobin 9.9 GM/DL Hematocrit 29.2 % Mean Corpuscular Volume 81.0 FL Mean Corpuscular Hemoglobin 27.5 PG Mean Corpuscular Hemoglobin Concent 33.9 % Red Cell Distribution Width 19.7 % Platelet Count 305 TH/MM3 Mean Platelet Volume 8.3 FL Neutrophils (%) (Auto) 83.2 % Lymphocytes (%) (Auto) 10.9 % Monocytes (%) (Auto) 4.7 % Eosinophils (%) (Auto) 0.3 % Basophils (%) (Auto) 0.9 % Neutrophils # (Auto) 6.8 TH/MM3 Lymphocytes # (Auto) 0.9 TH/MM3 Monocytes # (Auto) 0.4 TH/MM3 Eosinophils # (Auto) 0.0 TH/MM3 Basophils # (Auto) 0.1 TH/MM3 CBC Comment DIFF FINAL Differential Comment Prothrombin Time 32.8 SEC Prothromb Time International Ratio 3.3 RATIO Blood Urea Nitrogen 1 MG/DL Creatinine 0.41 MG/DL Random Glucose 79 MG/DL Calcium Level 7.5 MG/DL Magnesium Level 1.3 MG/DL Sodium Level 142 MEQ/L Potassium Level 3.0 MEQ/L Chloride Level 110 MEQ/L Carbon Dioxide Level 23.3 MEQ/L Anion Gap 9 MEQ/L Estimat Glomerular Filtration Rate 269 ML/MIN Vancomycin Level Trough 13.4 MCG/ML Administered Medications Medications (Trade) Dose Ordered Sig/Shyla Route PRN Reason Start Time Stop Time Status Last Admin Dose Admin Sodium Chloride (NS Flush) 2 ml UNSCH PRN IV FLUSH FLUSH AFTER USING IV ACCESS 09/06/17 13:00 09/08/17 22:44 Sodium Chloride (NS Flush) 2 ml BID IV FLUSH 09/06/17 21:00 09/17/17 08:19 Acetaminophen (Tylenol) 650 mg Q4H PRN PO headache, fever, pain 1-4 09/06/17 13:00 09/06/17 19:41 Dronabinol (Marinol) 2.5 mg BID@11,16 PO 09/07/17 11:00 09/16/17 14:47 Lactobacillus Acidophilus (Lactinex) 1 tab TID PO 09/11/17 09:00 09/17/17 08:19 Potassium Chloride/Sodium Chloride 1,000 ml @ 42 mls/hr [id number] IV 09/14/17 15:15 09/16/17 19:46 Vancomycin HCl 1000 mg/Sodium Chloride 250 ml @ 250 mls/hr Q18H IV 09/15/17 15:00 09/17/17 04:28 Warfarin Sodium (Coumadin) 4 mg DAILY@1600 PO 09/15/17 18:00 Future Hold 09/15/17 17:46 Vancomycin HCl (VANCOMYCIN for oral use only) 500 mg Q6H PO 09/16/17 18:00 09/17/17 04:28 Metronidazole 100 ml @ 100 mls/hr Q8H IV 09/16/17 17:00 09/17/17 08:19 Objective Remarks GENERAL: Chronically ill appearing male, lying in bed in no acute distress SKIN: Warm and dry. HEAD: Normocephalic. EYES: No injection or drainage. NECK: Supple, trachea midline. CARDIOVASCULAR: Regular rate and rhythm RESPIRATORY: Breath sounds equal bilaterally. No accessory muscle use. GASTROINTESTINAL: Abdomen soft, non-tender, nondistended. EXTREMITIES: No cyanosis. No edema NEUROLOGICAL: Awake and alert. Normal speech. No obvious focal deficit. Assessment/Plan Problem List: (1) Sepsis ICD Codes: A41.9 - Sepsis, unspecified organism Plan: --ID following --Most recent blood cultures show no growth 3-4 days --++ vanco, (2) Pneumonia ICD Codes: J18.9 - Pneumonia, unspecified organism Plan: --on antibiotics --ID following. (3) Normocytic anemia ICD Codes: D64.9 - Anemia, unspecified Status: Acute Plan: --monitor and transfuse as needed. (4) Pulmonary emboli ICD Codes: I26.99 - Other pulmonary embolism without acute cor pulmonale Status: Chronic Plan: --on coumadin -- Currently on hold (5) Non-Hodgkin lymphoma ICD Codes: C85.90 - Non-Hodgkin lymphoma, unspecified, unspecified site Status: Acute Plan: --will hold chemotherapy this week d/t admission for pneumonia -- Will resume chemotherapy once patient stronger (6) C. difficile colitis ICD Codes: A04.7 - Enterocolitis due to Clostridium difficile Status: Resolved Plan: --on po as well as IV vancomycin Assessment 47y/o male with high-grade diffuse large B-cell lymphoma admitted for pneumonia and nausea/vomiting as well as anemia. History of pulmonary embolism currently on anticoagulation. Hypertension. Protein-calorie malnutrition. Plan 1. Placed PICC line if okay with ID 2. Plan for chemotherapy on Thursday if he remains afebrile 3. Monitor PT/INR. 4. Hold Coumadin today. Attending Statement The exam, history, and the medical decision-making described in the above note were completed with the assistance of the mid-level provider. I reviewed and agree with the findings presented. I attest that I had a [id number] encounter with the patient on the same day, and personally performed and documented my assessment and findings in the medical record. Still weak but sat in chair for a short time yesterday. +diarrhea but no abdominal pain. Bcx 1/ and 12 negative to date. Continue abx per ID. Plan chemo on Thursday if he continue to improve. Problem Qualifiers (1) Sepsis: Qualified Codes: A41.02 - Sepsis due to methicillin resistant Staphylococcus aureus (2) Non-Hodgkin lymphoma: Qualified Codes: C83.38 - Diffuse large b-cell lymphoma, lymph nodes of multiple sites Tia Montenegro Sep 17, 2017 09:35 Ruslan Connelly MD Sep 17, 2017 11:10
[2017-09-17] MEDS: POTASSIUM CHLOR 20 MEQ PREMIX 100 ML IV SCH ×2 (09:41→12:24)
[2017-09-17] MEDS: DRONABINOL 2.5 MG CAP PO SCH ×2 (12:24→16:00)
--- NOTE | 2017-09-17 13:56 | HHI.IDPN ---
Subjective Subjective Remarks denies abd pain diarrhea improved to 5 BMs no fever On RA + non occlusiove thrombus in jugular Last blood clx are negative @ 4-5 days 2D echo positive for TV endocarditis Antibiotics vanco IV vanco PO flagyl Allergies: Coded Allergies: Milk Containing Products (Verified Allergy, Mild, diarrhea, 06/11/17) Objective . Vital Signs Date Time Temp Pulse Resp B/P (MAP) Pulse Ox O2 Delivery O2 Flow Rate FiO2 09/17/17 12:30 97.5 72 18 149/95 (113) 100 09/17/17 09:03 98 21 09/17/17 08:16 98.4 69 18 160/94 (116) 99 09/17/17 04:28 98.4 69 16 161/94 (116) 100 09/17/17 00:13 98.0 67 16 154/85 (108) 100 09/16/17 22:19 21 09/16/17 20:05 66 09/16/17 19:44 98.7 72 16 128/82 (97) 100 09/16/17 14:52 98.5 67 20 148/91 (110) 100 09/17/17 09/17/17 09/18/17 15:00 23:00 07:00 Intake Total 200 ml Balance 200 ml IV Total 200 ml . Laboratory Tests Test 09/17/17 03:45 White Blood Count 8.2 TH/MM3 Red Blood Count 3.60 MIL/MM3 Hemoglobin 9.9 GM/DL Hematocrit 29.2 % Mean Corpuscular Volume 81.0 FL Mean Corpuscular Hemoglobin 27.5 PG Mean Corpuscular Hemoglobin Concent 33.9 % Red Cell Distribution Width 19.7 % Platelet Count 305 TH/MM3 Mean Platelet Volume 8.3 FL Neutrophils (%) (Auto) 83.2 % Lymphocytes (%) (Auto) 10.9 % Monocytes (%) (Auto) 4.7 % Eosinophils (%) (Auto) 0.3 % Basophils (%) (Auto) 0.9 % Neutrophils # (Auto) 6.8 TH/MM3 Lymphocytes # (Auto) 0.9 TH/MM3 Monocytes # (Auto) 0.4 TH/MM3 Eosinophils # (Auto) 0.0 TH/MM3 Basophils # (Auto) 0.1 TH/MM3 CBC Comment DIFF FINAL Differential Comment Laboratory Tests Test 09/17/17 03:45 Blood Urea Nitrogen 1 MG/DL Creatinine 0.41 MG/DL Random Glucose 79 MG/DL Calcium Level 7.5 MG/DL Magnesium Level 1.3 MG/DL Sodium Level 142 MEQ/L Potassium Level 3.0 MEQ/L Chloride Level 110 MEQ/L Carbon Dioxide Level 23.3 MEQ/L Anion Gap 9 MEQ/L Estimat Glomerular Filtration Rate 269 ML/MIN Imaging Last Impressions Chest X-Ray 09/13/17 0600 Signed Impressions: Service Date/Time: Wednesday, September 13, 2017 04:42 - CONCLUSION: 1. No pneumothorax is visualized. There is mild bibasilar airspace opacity, left greater than right. 2. Right paratracheal and subcarinal masses are stable. Tacos Perez MD Upper Extremity Ultrasound 09/10/17 0000 Signed Impressions: Service Date/Time: August 13:56 - CONCLUSION: 1. Nonocclusive thrombus in the jugular vein. 2. The other vessels are patent. 3. Solid lobular mass in the supraclavicular region consistent with adenopathy in this patient with history of lymphoma. Goldy Suarez MD Port Line Revision 09/08/17 0000 Signed Impressions: Service Date/Time: Friday, September 08, 2017 00:00 - CONCLUSION: Uncomplicated port removal as above. Adama Briceño MD Chest CT 09/06/17 0000 Signed Impressions: Service Date/Time: Wednesday, September 06, 2017 15:57 - CONCLUSION: 1. Patchy bilateral air space consolidation in both lung bases. Differential diagnosis includes bronchopneumonia and aspiration. Small pleural effusions improved from April. 2. Extensive mediastinal adenopathy also improved from April. Travis Ruffin MD Physical Exam CONSTITUTIONAL/GENERAL: This is a thin poorly nourished chronically ill appearing patient, in no apparent distress. Breathes better , off O2 TUBES/LINES/DRAINS: SKIN: No jaundice, rashes, or lesions. Skin temperature appropriate. Not diaphoretic. Alopecia ENT: Hearing grossly normal. Nose without bleeding or purulent drainage. Oral mucosae w/o mucositis poor dentition CARDIOVASCULAR: Regular rate and rhythm without murmurs, gallops, or rubs. No JVD. Peripheral pulses symmetric. RESPIRATORY/CHEST: Symmetric, unlabored respirations. Clear to auscultation. Breath sounds equal bilaterally. No wheezes, rales, or rhonchi. GASTROINTESTINAL: Abdomen soft, non-tender, moderately distended. No hepato- splenomegaly, or palpable masses. No guarding. Bowel sounds present. MUSCULOSKELETAL: Extremities without clubbing, cyanosis, or edema. NEUROLOGICAL: Awake and alert. Motor and sensory grossly within normal limits. Follows commands. Clear speech. Moves all extremities. PSYCHIATRIC: No obvious anxiety/depression. no apparent hallucinations or other psychotic thought process. 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 Atypical PNA C.diff, prior exposure to levaquine : pesistent diarrhea repeat C.diff + on 500 vanco, IV flagyl leukocytosis - resolved cont vanco x 6 weeks after blood clx clear (thrombus): thru October 26 keep level 15-20 cont PO vancomycin @ 500 will cont flagyl IV for now, expect to dc in few days if diarrhea improves OK to place PICC if blood clx remain negative @ 3 days Kelsie Hnog MD Sep 17, 2017 13:56
--- NOTE | 2017-09-17 14:25 | HHI.PR ---
Subjective Remarks Worked with PT today and he got up to chair. No change in the loose stools. No abdominal pain or fever. Objective Vitals Vital Signs Date Time Temp Pulse Resp B/P (MAP) Pulse Ox O2 Delivery O2 Flow Rate FiO2 09/17/17 12:30 97.5 72 18 149/95 (113) 100 09/17/17 09:03 98 21 09/17/17 08:16 98.4 69 18 160/94 (116) 99 09/17/17 04:28 98.4 69 16 161/94 (116) 100 09/17/17 00:13 98.0 67 16 154/85 (108) 100 09/16/17 22:19 21 09/16/17 20:05 66 09/16/17 19:44 98.7 72 16 128/82 (97) 100 09/16/17 14:52 98.5 67 20 148/91 (110) 100 I/O 09/16/17 09/16/17 09/16/17 09/17/17 09/17/17 09/17/17 07:00 15:00 23:00 07:00 15:00 23:00 Intake Total 345 ml 850 ml 455 ml 830 ml 200 ml Output Total 500 ml 600 ml 600 ml Balance -155 ml 250 ml 455 ml 230 ml 200 ml Intake Oral 850 ml 480 ml IV Total 345 ml 455 ml 350 ml 200 ml Output Urine Total 500 ml 600 ml 600 ml # Bowel Movements 3 4 1 Result Diagram: 09/17/17 0345 09/17/17 034 Objective Remarks GENERAL: Cachectic chronically ill appearing -[place] male patient. SKIN: Warm and dry. HEAD: Normocephalic. EYES: No scleral icterus. No injection or drainage. NECK: Supple, trachea midline. No JVD or lymphadenopathy. CARDIOVASCULAR: Regular rate and rhythm without murmurs, gallops, or rubs. RESPIRATORY: Breath sounds equal bilaterally. No accessory muscle use. GASTROINTESTINAL: Abdomen soft, non-tender, nondistended. EXTREMITIES: No pedal edema. NEUROLOGICAL: Awake, alert, and oriented x 3. Non-focal. Procedures None. 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 difficile colitis ICD Code: A04.7 - Enterocolitis due to Clostridium difficile Status: Resolved (7) Sepsis ICD Code: A41.9 - Sepsis, unspecified organism (8) Debility ICD Code: R53.81 - Other malaise Status: Acute Assessment and Plan Mr. Werner is a 47-year-old male patient with a known medical history of non- Hodgkin B-cell lymphoma, HTN and history of PE who presented to the ED with complaints of generalized weakness, nausea, vomiting and cough x 1 week. Hemoglobin 6.6 on presentation to ED, 2 units PRBC have been ordered. Acutely febrile, temp 102.5. WBC 20.9. Sepsis, MRSA tricuspid valve endocarditis, MRSA bacteremia, bilateral pneumonia - - s/p Port removal 09/10. - CXR shows bilateral infiltrates CT Chest shows bilateral infiltrates as well. - Blood cultures growing MRSA -Status post cefepime and Zithromax course -2-D echocardiogram with tricuspid valve vegetation - ID is following-Vancomycin for 6 weeks - Per ID Dr. Gely estevez to place PICC line if 09/13 blood cultures remain negative -C. difficile colitis On by mouth vancomycin per ID - until roughly Sep 26. Lactinex. Still has significant loose stools. 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 - Received Cytoxan and CHOP (cyclophosphamide, doxorubicin, vincristine and prednisone) - Subsequently, also received Rituxan and EPOCH (cyclophosphamide, doxorubicin, etoposide, vincristine, prednisone) - Last chemotherapy was 2 weeks prior to this admission. - Haptoglobin 617. LDH 196. Iron level 17, TIBC 105, ferritin 2200. - Heme/onc following. Microcytic hypochromic anemia: Hemoglobin 6.6/Hematocrit 19.6 on presentation. Hemoccult negative. s/p 2 units PRBC -Hb improved to 10-11 - monitor H&H Severe protein calorie malnutrition due to the colitis, chronically ill, poor appetite - cont ensure to diet. Persistent, severe hypokalemia: Due to GI loss. Potassium 3 today. Receiving IV potassium. Continue by mouth potassium 30 mEq by mouth twice a day - he has poor absorption and is requiring IV supplementation. Hypertension, chronic: BP 100/66 currently. No need for any antihypertensives. 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 cont Warfarin - monitor INR. pharmacy following for coumadin management DVT Prophylaxis: SCDs. on coumadin Discharge Planning [facility] versus home Problem Qualifiers (1) Non-Hodgkin lymphoma: Qualified Codes: C83.38 - Diffuse large b-cell lymphoma, lymph nodes of multiple sites (2) Anemia: Qualified Codes: D64.9 - Anemia, unspecified (3) Sepsis: Qualified Codes: A41.02 - Sepsis due to methicillin resistant Staphylococcus aureus Arminda Diehl MD Sep 17, 2017 14:25
--- NOTE | 2017-09-17 15:24 | HHI.PR ---
Addendum to Inpatient Note Additional Information pt was seen today around 1pm - full note to follow Kelsie Hong MD Sep 17, 2017 15:24
[2017-09-17] MEDS: NS + KCL 40 MEQ INJ 1,000 ML IV SCH (17:58)
[2017-09-18] VITALS (7 sets, daily range): BP systolic 126–154; BP diastolic 80–100; PULSE 60–85; RESP 15–18; TEMP 98.2–98.8; O2SAT 92–100
[2017-09-18] MEDS: metroNIDAZOLE 500 MG INJ 100 ML IV SCH ×3 (00:19→17:39)
[2017-09-18] MEDS: VANCOMYCIN 500 MG VIAL (FOR ORAL USE ONLY) PO SCH ×4 (00:19→18:28)
[2017-09-18] MEDS: SODIUM CHLORIDE 0.9% FLUSH 10 ML FLUSH IV FLUSH SCH ×2 (09:15→21:00)
[2017-09-18] MEDS: LACTOBACILLUS ACIDOPHILUS TAB PO SCH ×3 (09:15→18:28)
--- NOTE | 2017-09-18 09:53 | HHI.PR ---
Subjective Remarks In bed, feels tired. No fever or chills. No n/v/d/c. Has no pain at this time. He is not coughing. Objective Vitals Vital Signs Date Time Temp Pulse Resp B/P (MAP) Pulse Ox O2 Delivery O2 Flow Rate FiO2 09/18/17 08:05 Nasal Cannula 09/18/17 04:00 98.5 78 16 154/95 (114) 99 09/18/17 00:21 98.5 85 15 148/94 (112) 92 09/17/17 20:56 98.7 81 16 150/93 (112) 100 09/17/17 20:00 70 09/17/17 18:03 98.9 71 18 158/94 (115) 99 09/17/17 12:30 97.5 72 18 149/95 (113) 100 I/O 09/17/17 09/17/17 09/17/17 09/18/17 09/18/17 09/18/17 07:00 15:00 23:00 07:00 15:00 23:00 Intake Total 830 ml 300 ml 1362 ml 365 ml Output Total 600 ml 850 ml 1150 ml Balance 230 ml 300 ml 512 ml -785 ml Intake Oral 480 ml 840 ml 365 ml IV Total 350 ml 300 ml 522 ml Output Urine Total 600 ml 850 ml 1150 ml # Bowel Movements 1 Result Diagram: 09/17/17 0345 09/17/17 0345 Imaging Last Impressions Chest X-Ray 09/13/17 0600 Signed Impressions: Service Date/Time: Wednesday, September 13, 2017 04:42 - CONCLUSION: 1. No pneumothorax is visualized. There is mild bibasilar airspace opacity, left greater than right. 2. Right paratracheal and subcarinal masses are stable. Tacos Perez MD Upper Extremity Ultrasound 09/10/17 0000 Signed Impressions: Service Date/Time: August 13:56 - CONCLUSION: 1. Nonocclusive thrombus in the jugular vein. 2. The other vessels are patent. 3. Solid lobular mass in the supraclavicular region consistent with adenopathy in this patient with history of lymphoma. Goldy Suarez MD Port Line Revision 09/08/17 0000 Signed Impressions: Service Date/Time: Friday, September 08, 2017 00:00 - CONCLUSION: Uncomplicated port removal as above. Adama Briceño MD Chest CT 09/06/17 0000 Signed Impressions: Service Date/Time: Wednesday, September 06, 2017 15:57 - CONCLUSION: 1. Patchy bilateral air space consolidation in both lung bases. Differential diagnosis includes bronchopneumonia and aspiration. Small pleural effusions improved from April. 2. Extensive mediastinal adenopathy also improved from April. Travis Ruffin MD Objective Remarks GENERAL: Cachectic chronically ill appearing -[place] male patient. SKIN: Warm and dry. HEAD: Normocephalic. CARDIOVASCULAR: Regular rate and rhythm without murmurs, gallops, or rubs. RESPIRATORY: Breath sounds equal bilaterally. No accessory muscle use. GASTROINTESTINAL: Abdomen soft, non-tender, nondistended. EXTREMITIES: No pedal edema. NEUROLOGICAL: Awake, alert, and oriented x 3. Non-focal. Procedures None. 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 difficile colitis ICD Code: A04.7 - Enterocolitis due to Clostridium difficile Status: Resolved (7) Sepsis ICD Code: A41.9 - Sepsis, unspecified organism (8) Debility ICD Code: R53.81 - Other malaise Status: Acute Assessment and Plan Mr. Werner is a 47-year-old male patient with a known medical history of non- Hodgkin B-cell lymphoma, HTN and history of PE who presented to the ED with complaints of generalized weakness, nausea, vomiting and cough x 1 week. Hemoglobin 6.6 on presentation to ED, 2 units PRBC have been ordered. Acutely febrile, temp 102.5. WBC 20.9. Sepsis, MRSA tricuspid valve endocarditis, MRSA bacteremia, bilateral pneumonia - - s/p Port removal 09/10. - CXR shows bilateral infiltrates CT Chest shows bilateral infiltrates as well. - Blood cultures growing MRSA -Status post cefepime and Zithromax course -2-D echocardiogram with tricuspid valve vegetation - ID is following-Vancomycin for 6 weeks - Per ID Dr. Gely estevez to place PICC line if /3 blood cultures remain negative -C. difficile colitis On by mouth vancomycin per ID - until roughly Sep 26. Lactinex. Still has significant loose stools. 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 - Received Cytoxan and CHOP (cyclophosphamide, doxorubicin, vincristine and prednisone) - Subsequently, also received Rituxan and EPOCH (cyclophosphamide, doxorubicin, etoposide, vincristine, prednisone) - Last chemotherapy was 2 weeks prior to this admission. - Haptoglobin 617. LDH 196. Iron level 17, TIBC 105, ferritin 2200. - Heme/onc following. Microcytic hypochromic anemia: Hemoglobin 6.6/Hematocrit 19.6 on presentation. Hemoccult negative. s/p 2 units PRBC -Hb improved to 10-11 - monitor H&H Severe protein calorie malnutrition due to the colitis, chronically ill, poor appetite - cont ensure to diet. Persistent, severe hypokalemia: Due to GI loss. Potassium 3 today. Receiving IV potassium. Continue by mouth potassium 30 mEq by mouth twice a day - he has poor absorption and is requiring IV supplementation. Hypertension, chronic: BP 100/66 currently. No need for any antihypertensives. 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 cont Warfarin - monitor INR. pharmacy following for coumadin management DVT Prophylaxis: SCDs. on coumadin Discharge Planning SNF versus home Plan for Chemo on Thursday Problem Qualifiers (1) Non-Hodgkin lymphoma: Qualified Codes: C83.38 - Diffuse large b-cell lymphoma, lymph nodes of multiple sites (2) Anemia: Qualified Codes: D64.9 - Anemia, unspecified (3) Sepsis: Qualified Codes: A41.02 - Sepsis due to methicillin resistant Staphylococcus aureus Karen Gleason MD Sep 18, 2017 09:53
[2017-09-18] MEDS: DRONABINOL 2.5 MG CAP PO SCH ×2 (12:43→17:39)
--- NOTE | 2017-09-18 12:54 | PD.ONC.PN ---
Subjective Subjective Remarks Afebrile overnight. Patient resting in bed. Per nurse he has not been OOB yet today. Had one loose stool today. Objective Data Date Time Temp Pulse Resp B/P (MAP) Pulse Ox O2 Delivery O2 Flow Rate FiO2 09/18/17 08:05 Nasal Cannula 09/18/17 08:00 98.6 60 18 143/100 (114) 98 09/18/17 04:00 98.5 78 16 154/95 (114) 99 09/18/17 00:21 98.5 85 15 148/94 (112) 92 09/17/17 20:56 98.7 81 16 150/93 (112) 100 09/17/17 20:00 70 09/17/17 18:03 98.9 71 18 158/94 (115) 99 09/18/17 09/18/17 09/18/17 07:00 15:00 23:00 Intake Total 365 ml Output Total 1150 ml Balance -785 ml Result Diagram: 09/17/17 0345 09/17/17 0345 Administered Medications Medications (Trade) Dose Ordered Sig/Shyla Route PRN Reason Start Time Stop Time Status Last Admin Dose Admin Sodium Chloride (NS Flush) 2 ml UNSCH PRN IV FLUSH FLUSH AFTER USING IV ACCESS 09/06/17 13:00 09/08/17 22:44 Sodium Chloride (NS Flush) 2 ml BID IV FLUSH 09/06/17 21:00 09/18/17 09:15 Acetaminophen (Tylenol) 650 mg Q4H PRN PO headache, fever, pain 1-4 09/06/17 13:00 09/06/17 19:41 Dronabinol (Marinol) 2.5 mg BID@11,16 PO 09/07/17 11:00 09/18/17 12:43 Lactobacillus Acidophilus (Lactinex) 1 tab TID PO 09/11/17 09:00 09/18/17 12:43 Potassium Chloride/Sodium Chloride 1,000 ml @ 42 mls/hr [id number] IV 09/14/17 15:15 09/17/17 17:58 Warfarin Sodium (Coumadin) 4 mg DAILY@1600 PO 09/15/17 18:00 Future Hold 09/15/17 17:46 Vancomycin HCl (VANCOMYCIN for oral use only) 500 mg Q6H PO 09/16/17 18:00 12/8/17 12:43 Metronidazole 100 ml @ 100 mls/hr Q8H IV 09/16/17 17:00 09/18/17 09:15 Objective Remarks GENERAL: chronically ill male, disheveled, lying in bed in nad. SKIN: Warm and dry. HEAD: Normocephalic. EYES: No injection or drainage. NECK: Supple, trachea midline. CARDIOVASCULAR: Regular rate and rhythm RESPIRATORY: Breath sounds equal bilaterally. No accessory muscle use. GASTROINTESTINAL: Abdomen soft, non-tender, nondistended. EXTREMITIES: No cyanosis. NEUROLOGICAL: No obvious focal deficit. Awake, alert, and oriented x3. Assessment/Plan Problem List: (1) Sepsis ICD Codes: A41.9 - Sepsis, unspecified organism Plan: --ID following --Most recent blood cultures show no growth --++ vanco, (2) Pneumonia ICD Codes: J18.9 - Pneumonia, unspecified organism Plan: --on antibiotics --ID following. (3) Normocytic anemia ICD Codes: D64.9 - Anemia, unspecified Status: Acute Plan: --monitor and transfuse as needed. (4) Pulmonary emboli ICD Codes: I26.99 - Other pulmonary embolism without acute cor pulmonale Status: Chronic Plan: --on Coumadin (5) Non-Hodgkin lymphoma ICD Codes: C85.90 - Non-Hodgkin lymphoma, unspecified, unspecified site Status: Acute Plan: -- plan to resume chemotherapy inpatient once patient stronger. (6) C. difficile colitis ICD Codes: A04.7 - Enterocolitis due to Clostridium difficile Status: Resolved Plan: --on po vancomycin Assessment 47y/o male with high-grade diffuse large B-cell lymphoma admitted for pneumonia and nausea/vomiting as well as anemia. History of pulmonary embolism currently on anticoagulation. Hypertension. Protein-calorie malnutrition. Plan 1. await PICC line placement 2. Plan for EPOCH chemotherapy starting Thursday, assuming he remains afebrile Attending Statement The exam, history, and the medical decision-making described in the above note were completed with the assistance of the mid-level provider. I reviewed and agree with the findings presented. I attest that I had a [id number] encounter with the patient on the same day, and personally performed and documented my assessment and findings in the medical record. Still weak, diarrhea slightly better. No abdominal pain. Blood cx 09/12 and 09/13 negative to date. Await PICC placement. Plan to give him EPOCH Thursday if stable. Problem Qualifiers (1) Sepsis: Qualified Codes: A41.02 - Sepsis due to methicillin resistant Staphylococcus aureus (2) Non-Hodgkin lymphoma: Qualified Codes: C83.38 - Diffuse large b-cell lymphoma, lymph nodes of multiple sites Brenda Platt Sep 18, 2017 12:54 Ruslan Connelly MD Sep 18, 2017 13:05
[2017-09-18] MEDS ORDERED: PHARMACY ORDERED LAB ONE (14:45)
[2017-09-18] MEDS ORDERED: SODIUM CHLORIDE 0.9% FLUSH 10 ML FLUSH IV FLUSH PRN (15:15)
--- NOTE | 2017-09-18 16:04 | RADRPT ---
EXAM DATE/TIME: 09/18/2017 15:43 [facility] COMPARISON: CHEST SINGLE AP, September 13, 2017, 4:42. INDICATIONS : Left arm PICC line placement. MEDICAL HISTORY : Venous insufficiency. Hypertension. A-Fib PE Nonhodgkins lymphoma SURGICAL HISTORY : None. ENCOUNTER: Initial ACUITY: 1 day PAIN SCORE: 5/10 LOCATION: all over FINDINGS: Left-sided PICC line in good position at cavoatrial junction. Redemonstration of bilateral lower lung zone airspace disease and likely trace left pleural effusion. Right paratracheal and subcarinal mass es are unchanged. Remainder of exam is unchanged. CONCLUSION: 1. The left PICC line is in good position at the atrial junction. 2. Stable bilateral bibasilar airspace disease, left greater than right. 3. Probable trace left pleural effusion. Liang Peralta MD on September 18, 2017 at 16:01 Board Certified Radiologist. This report was verified electronically.
[2017-09-18] MEDS: VANCOMYCIN INJ 1,750 MG in SODIUM CHLORID 0.9% 500 ML INJ 500 ML IV SCH (17:36)
[2017-09-18 18:06] LABS: AUTOMATED NEUTROPHIL # 7.6 TH/MM3 (1.8-7.7); BASOPHIL % 0.4 % (0.0-2.0); EOSINOPHIL % 0.2 % (0.0-4.0); HEMATOCRIT 26.5 % (39.0-51.0); HEMOGLOBIN 8.9 GM/DL (13.0-17.0); LYMPH % 9.2 % (9.0-44.0); LYMPHOCYTE # 0.8 TH/MM3 (1.0-4.8); MEAN CELL VOLUME 79.6 FL (80.0-100.0); MEAN CORPUSCULAR HEMOGLOBIN 26.7 PG (27.0-34.0); MEAN CORPUSCULAR HGB CONC 33.5 % (32.0-36.0); MEAN PLATELET VOLUME 7.9 FL (7.0-11.0); MONO % 6.2 % (0.0-8.0); MONOCYTE # 0.6 TH/MM3 (0-0.9); PLATELET COUNT 265 TH/MM3 (150-450); RED BLOOD COUNT 3.33 MIL/MM3 (4.50-5.90); RED CELL DISTRIBUTION WIDTH 20.2 % (11.6-17.2)
[2017-09-18 19:59] LABS: CALCIUM 7.7 MG/DL (8.5-10.1); CREATININE 0.35 MG/DL (0.60-1.30); MAGNESIUM 1.4 MG/DL (1.5-2.5); VANCOMYCIN TROUGH 11.4 MCG/ML (5.0-10.0)
[2017-09-18] MEDS: NS + KCL 40 MEQ INJ 1,000 ML IV SCH (21:36)
[2017-09-19] VITALS (8 sets, daily range): BP systolic 115–159; BP diastolic 83–91; PULSE 66–131; RESP 14–18; TEMP 98.1–98.7; O2SAT 96–99
[2017-09-19] MEDS: VANCOMYCIN 500 MG VIAL (FOR ORAL USE ONLY) PO SCH ×4 (00:28→18:23)
[2017-09-19] MEDS: metroNIDAZOLE 500 MG INJ 100 ML IV SCH ×3 (00:28→22:09)
[2017-09-19 05:59] LABS: AUTOMATED NEUTROPHIL # 7.7 TH/MM3 (1.8-7.7); BASOPHIL % 0.5 % (0.0-2.0); EOSINOPHIL % 0.1 % (0.0-4.0); HEMATOCRIT 24.6 % (39.0-51.0); HEMOGLOBIN 8.3 GM/DL (13.0-17.0); LYMPHOCYTE # 0.7 TH/MM3 (1.0-4.8); MEAN CELL VOLUME 79.7 FL (80.0-100.0); MEAN CORPUSCULAR HEMOGLOBIN 26.9 PG (27.0-34.0); MEAN CORPUSCULAR HGB CONC 33.7 % (32.0-36.0); MEAN PLATELET VOLUME 8.1 FL (7.0-11.0); MONO % 5.3 % (0.0-8.0); MONOCYTE # 0.5 TH/MM3 (0-0.9); NEUT % 86.1 % (16.0-70.0); PLATELET COUNT 237 TH/MM3 (150-450); RED BLOOD COUNT 3.09 MIL/MM3 (4.50-5.90); RED CELL DISTRIBUTION WIDTH 19.9 % (11.6-17.2)
[2017-09-19 06:10] LABS: INTERNATIONAL NORMALIZED RATIO 2.7 RATIO
[2017-09-19 06:38] LABS: BICARBONATE 24.6 MEQ/L (21.0-32.0); BLOOD UREA NITROGEN LESS THAN 1 MG/DL (7-18); CALCIUM 7.2 MG/DL (8.5-10.1); CHLORIDE 110 MEQ/L (98-107); GLOMERULAR FILTRATION RATE 277 ML/MIN (>89); GLUCOSE,RANDOM 86 MG/DL (74-106); MAGNESIUM 1.2 MG/DL (1.5-2.5); SODIUM (NA) 144 MEQ/L (136-145)
[2017-09-19 07:35] LABS: CALCIUM-PROTEIN CORRECTED 8.5 MG/DL (8.5-10.1); TOTAL PROTEIN 4.8 GM/DL (6.4-8.2)
--- NOTE | 2017-09-19 07:41 | HHI.PR ---
Subjective Remarks Decreased appetite and not eating. His potassium and magnesium calcium is low. Patient denies having any chest pain or shortness of breath no nausea or vomiting no diarrhea or constipation. No fever or chills. He feels very weak. Objective Vitals Vital Signs Date Time Temp Pulse Resp B/P (MAP) Pulse Ox O2 Delivery O2 Flow Rate FiO2 09/19/17 04:33 98.6 84 16 150/91 (110) 99 09/19/17 00:27 98.4 74 16 141/83 (102) 99 09/18/17 21:40 98.6 75 18 146/89 (108) 99 09/18/17 20:00 71 09/18/17 17:00 98.2 67 18 126/80 (95) 100 09/18/17 13:13 98.8 18 142/89 (106) 99 09/18/17 08:05 Nasal Cannula 09/18/17 08:00 98.6 60 18 143/100 (114) 98 I/O 09/18/17 09/18/17 09/18/17 09/19/17 09/19/17 09/19/17 07:00 15:00 23:00 07:00 15:00 23:00 Intake Total 365 ml 100 ml 600 ml 240 ml Output Total 1150 ml 795 ml 800 ml Balance -785 ml 100 ml -195 ml -560 ml Intake Oral 365 ml 600 ml 240 ml IV Total 100 ml Output Urine Total 1150 ml 795 ml 800 ml # Bowel Movements 1 2 Result Diagram: 09/19/17 0440 09/19/17 0440 Imaging Last Impressions Chest X-Ray 09/18/17 0000 Signed Impressions: Service Date/Time: Monday, September 18, 2017 15:43 - CONCLUSION: 1. The left PICC line is in good position at the atrial junction. 2. Stable bilateral bibasilar airspace disease, left greater than right. 3. Probable trace left pleural effusion. Liang Peralta MD Upper Extremity Ultrasound 09/10/17 0000 Signed Impressions: Service Date/Time: August 13:56 - CONCLUSION: 1. Nonocclusive thrombus in the jugular vein. 2. The other vessels are patent. 3. Solid lobular mass in the supraclavicular region consistent with adenopathy in this patient with history of lymphoma. Goldy Suarez MD Port Line Revision 09/08/17 0000 Signed Impressions: Service Date/Time: Friday, September 08, 2017 00:00 - CONCLUSION: Uncomplicated port removal as above. Adama Briceño MD Chest CT 09/06/17 0000 Signed Impressions: Service Date/Time: Wednesday, September 06, 2017 15:57 - CONCLUSION: 1. Patchy bilateral air space consolidation in both lung bases. Differential diagnosis includes bronchopneumonia and aspiration. Small pleural effusions improved from April. 2. Extensive mediastinal adenopathy also improved from April. Travis Ruffin MD Objective Remarks GENERAL: Cachectic chronically ill appearing -Martiniquais Martiniquais male patient. SKIN: Warm and dry. HEAD: Normocephalic. CARDIOVASCULAR: Regular rate and rhythm without murmurs, gallops, or rubs. RESPIRATORY: Breath sounds equal bilaterally. No accessory muscle use. GASTROINTESTINAL: Abdomen soft, non-tender, nondistended. EXTREMITIES: No pedal edema. NEUROLOGICAL: Awake, alert, and oriented x 3. Non-focal. Procedures None. 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 difficile colitis ICD Code: A04.7 - Enterocolitis due to Clostridium difficile Status: Resolved (7) Sepsis ICD Code: A41.9 - Sepsis, unspecified organism (8) Debility ICD Code: R53.81 - Other malaise Status: Acute Assessment and Plan Mr. Werner is a 47-year-old male patient with a known medical history of non- Hodgkin B-cell lymphoma, HTN and history of PE who presented to the ED with complaints of generalized weakness, nausea, vomiting and cough x 1 week. Hemoglobin 6.6 on presentation to ED, 2 units PRBC have been ordered. Acutely febrile, temp 102.5. WBC 20.9. Sepsis, MRSA tricuspid valve endocarditis, MRSA bacteremia, bilateral pneumonia - - s/p Port removal 09/10. - CXR shows bilateral infiltrates CT Chest shows bilateral infiltrates as well. - Blood cultures growing MRSA -Status post cefepime and Zithromax course -2-D echocardiogram with tricuspid valve vegetation - ID is following-Vancomycin for 6 weeks - Per ID Dr. Gely estevez to place PICC line if 09/13 blood cultures remain negative -C. difficile colitis On by mouth vancomycin per ID - until roughly Sep 26. Lactinex. Still has significant loose stools. 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 - Received Cytoxan and CHOP (cyclophosphamide, doxorubicin, vincristine and prednisone) - Subsequently, also received Rituxan and EPOCH (cyclophosphamide, doxorubicin, etoposide, vincristine, prednisone) - Last chemotherapy was 2 weeks prior to this admission. - Haptoglobin 617. LDH 196. Iron level 17, TIBC 105, ferritin 2200. - Heme/onc following. Microcytic hypochromic anemia: Hemoglobin 6.6/Hematocrit 19.6 on presentation. Hemoccult negative. s/p 2 units PRBC -Hb improved to 10-11 - monitor H&H Severe protein calorie malnutrition due to the colitis, chronically ill, poor appetite - cont ensure to diet. Persistent, severe hypokalemia: Due to GI loss. Receiving IV potassium. Continue by mouth potassium 30 mEq by mouth twice a day - he has poor absorption and is requiring IV supplementation. Hypomagnesemia. Replace magnesium. Monitor level and replace as needed. Hypertension, chronic: BP 100/66 currently. No need for any antihypertensives. 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 cont Warfarin - monitor INR. pharmacy following for coumadin management DVT Prophylaxis: SCDs. on coumadin Discharge Planning SNF versus home Plan for Chemo on Thursday Discharge plan pending improvement. Patient needs chemotherapy will have it on Thursday. With persistent electrolyte abnormalities Discussed with the patient, nurse Problem Qualifiers (1) Non-Hodgkin lymphoma: Qualified Codes: C83.38 - Diffuse large b-cell lymphoma, lymph nodes of multiple sites (2) Anemia: Qualified Codes: D64.9 - Anemia, unspecified (3) Sepsis: Qualified Codes: A41.02 - Sepsis due to methicillin resistant Staphylococcus aureus Karen Gleason MD Sep 19, 2017 07:41
[2017-09-19] MEDS ORDERED: POTASSIUM CHLORIDE 25 MEQ EFFERVESCENT TAB PO ONE (07:45)
[2017-09-19] MEDS ORDERED: MAGNESIUM SULFATE 4 GM PREMIX 100 ML IV ONE (07:45)
[2017-09-19] MEDS: MAGNESIUM OXIDE 400 MG TAB PO SCH (09:36)
[2017-09-19] MEDS: LACTOBACILLUS ACIDOPHILUS TAB PO SCH ×3 (09:36→18:00)
[2017-09-19] MEDS: SODIUM CHLORIDE 0.9% FLUSH 10 ML FLUSH IV FLUSH SCH ×3 (09:41→21:00)
--- NOTE | 2017-09-19 10:13 | PD.ONC.PN ---
Subjective Subjective Remarks Afebrile overnight. Patient resting in bed in nad. Does not want to get out of bed today. Still feels fatigued and with poor appetite. Objective Data Date Time Temp Pulse Resp B/P (MAP) Pulse Ox O2 Delivery O2 Flow Rate FiO2 09/19/17 04:33 98.6 84 16 150/91 (110) 99 09/19/17 00:27 98.4 74 16 141/83 (102) 99 09/18/17 21:40 98.6 75 18 146/89 (108) 99 09/18/17 20:00 71 09/18/17 17:00 98.2 67 18 126/80 (95) 100 09/18/17 13:13 98.8 18 142/89 (106) 99 09/19/17 09/19/17 09/19/17 07:00 15:00 23:00 Intake Total 240 ml Output Total 800 ml Balance -560 ml Result Diagram: 09/19/17 0440 09/19/17 0440 Laboratory Results Laboratory Tests Test 09/18/17 17:35 09/19/17 04:40 White Blood Count 9.0 TH/MM3 9.0 TH/MM3 Red Blood Count 3.33 MIL/MM3 3.09 MIL/MM3 Hemoglobin 8.9 GM/DL 8.3 GM/DL Hematocrit 26.5 % 24.6 % Mean Corpuscular Volume 79.6 FL 79.7 FL Mean Corpuscular Hemoglobin 26.7 PG 26.9 PG Mean Corpuscular Hemoglobin Concent 33.5 % 33.7 % Red Cell Distribution Width 20.2 % 19.9 % Platelet Count 265 TH/MM3 237 TH/MM3 Mean Platelet Volume 7.9 FL 8.1 FL Neutrophils (%) (Auto) 84.0 % 86.1 % Lymphocytes (%) (Auto) 9.2 % 8.0 % Monocytes (%) (Auto) 6.2 % 5.3 % Eosinophils (%) (Auto) 0.2 % 0.1 % Basophils (%) (Auto) 0.4 % 0.5 % Neutrophils # (Auto) 7.6 TH/MM3 7.7 TH/MM3 Lymphocytes # (Auto) 0.8 TH/MM3 0.7 TH/MM3 Monocytes # (Auto) 0.6 TH/MM3 0.5 TH/MM3 Eosinophils # (Auto) 0.0 TH/MM3 0.0 TH/MM3 Basophils # (Auto) 0.0 TH/MM3 0.0 TH/MM3 CBC Comment DIFF FINAL DIFF FINAL Differential Comment Blood Urea Nitrogen 1 MG/DL LESS THAN 1 MG/DL Creatinine 0.35 MG/DL 0.40 MG/DL Random Glucose 92 MG/DL 86 MG/DL Calcium Level 7.7 MG/DL 7.2 MG/DL Magnesium Level 1.4 MG/DL 1.2 MG/DL Sodium Level 143 MEQ/L 144 MEQ/L Potassium Level 2.5 MEQ/L 2.4 MEQ/L Chloride Level 110 MEQ/L 110 MEQ/L Carbon Dioxide Level 25.0 MEQ/L 24.6 MEQ/L Anion Gap 8 MEQ/L 9 MEQ/L Estimat Glomerular Filtration Rate 323 ML/MIN 277 ML/MIN Vancomycin Level Trough 11.4 MCG/ML Prothrombin Time 27.0 SEC Prothromb Time International Ratio 2.7 RATIO Total Protein 4.8 GM/DL Protein Corrected Calcium 8.5 MG/DL Administered Medications Medications (Trade) Dose Ordered Sig/Hsyla Route PRN Reason Start Time Stop Time Status Last Admin Dose Admin Sodium Chloride (NS Flush) 2 ml UNSCH PRN IV FLUSH FLUSH AFTER USING IV ACCESS 09/06/17 13:00 09/08/17 22:44 Sodium Chloride (NS Flush) 2 ml BID IV FLUSH 09/06/17 21:00 09/19/17 09:41 Acetaminophen (Tylenol) 650 mg Q4H PRN PO headache, fever, pain 1-4 09/06/17 13:00 09/06/17 19:41 Dronabinol (Marinol) 2.5 mg BID@11,16 PO 09/07/17 11:00 09/18/17 17:39 Lactobacillus Acidophilus (Lactinex) 1 tab TID PO 09/11/17 09:00 09/19/17 09:36 Potassium Chloride/Sodium Chloride 1,000 ml @ 42 mls/hr [id number] IV 09/14/17 15:15 09/18/17 21:36 Warfarin Sodium (Coumadin) 4 mg DAILY@1600 PO 09/15/17 18:00 Future Hold 09/15/17 17:46 Vancomycin HCl (VANCOMYCIN for oral use only) 500 mg Q6H PO 09/16/17 18:00 09/19/17 06:23 Metronidazole 100 ml @ 100 mls/hr Q8H IV 09/16/17 17:00 09/19/17 09:36 Vancomycin HCl 1750 mg/Sodium Chloride 517.5 ml @ 250 mls/hr Q24H IV 09/18/17 15:00 09/18/17 17:36 Sodium Chloride (NS Flush) See Protocol DAILY IV FLUSH 09/19/17 09:00 09/19/17 09:41 Magnesium Oxide (Mag-Ox) 400 mg DAILY PO 09/19/17 09:00 09/19/17 09:36 Objective Remarks GENERAL: Chronically ill appearing male, sitting up on side of bed with assistance of PT. SKIN: Warm and dry. HEAD: Normocephalic. EYES: No injection or drainage. NECK: Supple, trachea midline. CARDIOVASCULAR: Regular rate and rhythm RESPIRATORY: Breath sounds equal bilaterally. No accessory muscle use. GASTROINTESTINAL: Abdomen soft, non-tender, nondistended. EXTREMITIES: No cyanosis NEUROLOGICAL: awake and alert. +deconditioned. normal speech. Assessment/Plan Problem List: (1) Sepsis ICD Codes: A41.9 - Sepsis, unspecified organism Plan: --ID following --Most recent blood cultures show no growth --++ vanco, (2) Pneumonia ICD Codes: J18.9 - Pneumonia, unspecified organism Plan: --on antibiotics --ID following. (3) Normocytic anemia ICD Codes: D64.9 - Anemia, unspecified Status: Acute Plan: --monitor and transfuse as needed. (4) Pulmonary emboli ICD Codes: I26.99 - Other pulmonary embolism without acute cor pulmonale Status: Chronic Plan: --on Coumadin (5) Non-Hodgkin lymphoma ICD Codes: C85.90 - Non-Hodgkin lymphoma, unspecified, unspecified site Status: Acute Plan: -- plan to resume chemotherapy inpatient once patient stronger. (6) C. difficile colitis ICD Codes: A04.7 - Enterocolitis due to Clostridium difficile Status: Resolved Plan: --on po vancomycin Assessment 47y/o male with high-grade diffuse large B-cell lymphoma admitted for pneumonia and nausea/vomiting as well as anemia. History of pulmonary embolism currently on anticoagulation. Hypertension. Protein-calorie malnutrition. Plan 1. continue antibiotics, supportive care 2. plan for chemotherapy Thursday 3. encourage patient out of bed. Attending Statement The exam, history, and the medical decision-making described in the above note were completed with the assistance of the mid-level provider. I reviewed and agree with the findings presented. I attest that I had a [id number] encounter with the patient on the same day, and personally performed and documented my assessment and findings in the medical record. No N/V c/o weakness no more fevers NHL. s/p EPOCH PNA on a/b MRSA sepsis on IV vanco per ID c diff on Po Vanco s/p Port removed. Problem Qualifiers (1) Sepsis: Qualified Codes: A41.02 - Sepsis due to methicillin resistant Staphylococcus aureus (2) Non-Hodgkin lymphoma: Qualified Codes: C83.38 - Diffuse large b-cell lymphoma, lymph nodes of multiple sites Brenda Platt Sep 19, 2017 10:13 Ga Murphy MD Sep 19, 2017 17:27
[2017-09-19] MEDS: MAGNESIUM SULFAT 1 GM PREMIX 100 ML x2 bags IV SCH ×4 (11:00→15:45)
[2017-09-19] MEDS: DRONABINOL 2.5 MG CAP PO SCH ×2 (12:19→16:00)
[2017-09-19] MEDS ORDERED: WARFARIN SOD 2 MG TAB PO SCH (16:00)
[2017-09-19] MEDS: POTASSIUM CHLOR 40 MEQ PREMIX 100 ML IV SCH ×2 (17:04→22:08)
[2017-09-19] MEDS: VANCOMYCIN INJ 1,750 MG in SODIUM CHLORID 0.9% 500 ML INJ 500 ML IV SCH (18:24)
[2017-09-19] MEDS: NS + KCL 40 MEQ INJ 1,000 ML IV SCH ×2 (22:13→22:21)
[2017-09-20] VITALS (7 sets, daily range): BP systolic 113–161; BP diastolic 88–99; PULSE 75–119; RESP 16–18; TEMP 98.4–99.2; O2SAT 96–100
[2017-09-20] MEDS: VANCOMYCIN 500 MG VIAL (FOR ORAL USE ONLY) PO SCH ×4 (00:59→17:21)
[2017-09-20] MEDS: metroNIDAZOLE 500 MG INJ 100 ML IV SCH ×3 (02:31→17:21)
[2017-09-20 07:02] LABS: CREATININE 0.39 MG/DL (0.60-1.30)
[2017-09-20 07:20] LABS: INTERNATIONAL NORMALIZED RATIO 2.9 RATIO; PROTHROMBIN TIME - PATIENT 29.5 SEC (9.8-11.6)
[2017-09-20] MEDS: LACTOBACILLUS ACIDOPHILUS TAB PO SCH ×3 (09:00→17:21)
[2017-09-20] MEDS: SODIUM CHLORIDE 0.9% FLUSH 10 ML FLUSH IV FLUSH SCH ×3 (09:00→19:56)
[2017-09-20] MEDS: MAGNESIUM OXIDE 400 MG TAB PO SCH (09:12)
--- NOTE | 2017-09-20 09:37 | HHI.PR ---
Subjective Remarks In bed appears tires, cachectic. No abd pain . Not eating much . No n/v/d/c. No fevers or chills. Objective Vitals Vital Signs Date Time Temp Pulse Resp B/P (MAP) Pulse Ox O2 Delivery O2 Flow Rate FiO2 09/20/17 09:15 98.7 119 18 161/99 (119) 96 09/20/17 04:00 Room Air 09/20/17 04:00 98.4 76 18 113/91 (98) 99 09/20/17 00:00 99.2 75 18 119/90 (100) 97 09/20/17 00:00 Room Air 09/19/17 20:00 98.1 73 18 115/87 (96) 97 09/19/17 20:00 72 09/19/17 20:00 Room Air 09/19/17 17:54 96 21 09/19/17 17:09 98.7 74 14 145/91 (109) 09/19/17 14:12 98.5 66 14 159/89 (112) 96 09/19/17 13:26 99 21 I/O 09/19/17 09/19/17 09/19/17 09/20/17 09/20/17 09/20/17 07:00 15:00 23:00 07:00 15:00 23:00 Intake Total 240 ml 1100 ml 1868 ml Output Total 800 ml 1400 ml Balance -560 ml 1100 ml 468 ml Intake Oral 240 ml 600 ml 680 ml IV Total 500 ml 1188 ml Output Urine Total 800 ml 1400 ml # Bowel Movements 2 2 Result Diagram: 09/19/17 0440 09/20/17 0505 Imaging Last Impressions Chest X-Ray 09/18/17 0000 Signed Impressions: Service Date/Time: Monday, September 18, 2017 15:43 - CONCLUSION: 1. The left PICC line is in good position at the atrial junction. 2. Stable bilateral bibasilar airspace disease, left greater than right. 3. Probable trace left pleural effusion. Liang Peralta MD Upper Extremity Ultrasound 09/10/17 0000 Signed Impressions: Service Date/Time: August 13:56 - CONCLUSION: 1. Nonocclusive thrombus in the jugular vein. 2. The other vessels are patent. 3. Solid lobular mass in the supraclavicular region consistent with adenopathy in this patient with history of lymphoma. Goldy Suarez MD Port [place] Revision 09/08/17 0000 Signed Impressions: Service Date/Time: Friday, September 08, 2017 00:00 - CONCLUSION: Uncomplicated port removal as above. Adama Briceño MD Chest CT 09/06/17 0000 Signed Impressions: Service Date/Time: Wednesday, September 06, 2017 15:57 - CONCLUSION: 1. Patchy bilateral air space consolidation in both lung bases. Differential diagnosis includes bronchopneumonia and aspiration. Small pleural effusions improved from April. 2. Extensive mediastinal adenopathy also improved from April. Travis Ruffin MD Objective Remarks GENERAL: Cachectic chronically ill appearing -Tristanian Tristanian male patient. SKIN: Warm and dry. HEAD: Normocephalic. CARDIOVASCULAR: Regular rate and rhythm without murmurs, gallops, or rubs. RESPIRATORY: Breath sounds equal bilaterally. No accessory muscle use. GASTROINTESTINAL: Abdomen soft, non-tender, nondistended. EXTREMITIES: No pedal edema. NEUROLOGICAL: Awake, alert, and oriented x 3. Non-focal. Procedures None. 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 difficile colitis ICD Code: A04.7 - Enterocolitis due to Clostridium difficile Status: Resolved (7) Sepsis ICD Code: A41.9 - Sepsis, unspecified organism (8) Debility ICD Code: R53.81 - Other malaise Status: Acute Assessment and Plan Mr. Werner is a 47-year-old male patient with a known medical history of non- Hodgkin B-cell lymphoma, HTN and history of PE who presented to the ED with complaints of generalized weakness, nausea, vomiting and cough x 1 week. Hemoglobin 6.6 on presentation to ED, 2 units PRBC have been ordered. Acutely febrile, temp 102.5. WBC 20.9. Sepsis, MRSA tricuspid valve endocarditis, MRSA bacteremia, bilateral pneumonia - - s/p Port removal 09/10. - CXR shows bilateral infiltrates CT Chest shows bilateral infiltrates as well. - Blood cultures growing MRSA -Status post cefepime and Zithromax course -2-D echocardiogram with tricuspid valve vegetation - ID is following-Vancomycin for 6 weeks - Per ID Dr. Gely estevez to place PICC line if 09/13 blood cultures remain negative -C. difficile colitis On by mouth vancomycin per ID - until roughly Sep 26. Lactinex. Still has significant loose stools. 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 - Received Cytoxan and CHOP (cyclophosphamide, doxorubicin, vincristine and prednisone) - Subsequently, also received Rituxan and EPOCH (cyclophosphamide, doxorubicin, etoposide, vincristine, prednisone) - Last chemotherapy was 2 weeks prior to this admission. - Haptoglobin 617. LDH 196. Iron level 17, TIBC 105, ferritin 2200. - Heme/onc following. Microcytic hypochromic anemia: Hemoglobin 6.6/Hematocrit 19.6 on presentation. Hemoccult negative. s/p 2 units PRBC -Hb improved to 10-11 - monitor H&H Severe protein calorie malnutrition due to the colitis, chronically ill, poor appetite - cont ensure to diet. Persistent, severe hypokalemia: Due to GI loss. Receiving IV potassium. Continue by mouth potassium 30 mEq by mouth twice a day - he has poor absorption and is requiring IV supplementation. Replace K as need. Monitor levels and replace. Hypomagnesemia. Replace magnesium. Monitor level and replace as needed. Hypertension, chronic: BP 100/66 currently. No need for any antihypertensives. 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 cont Warfarin - monitor INR. pharmacy following for coumadin management DVT Prophylaxis: SCDs. on coumadin Discharge Planning SNF versus home Plan for Chemo on Thursday Discharge plan pending improvement. Patient needs chemotherapy will have it on Thursday. With persistent electrolyte abnormalities Discussed with the patient, nurse Problem Qualifiers (1) Non-Hodgkin lymphoma: Qualified Codes: C83.38 - Diffuse large b-cell lymphoma, lymph nodes of multiple sites (2) Anemia: Qualified Codes: D64.9 - Anemia, unspecified (3) Sepsis: Qualified Codes: A41.02 - Sepsis due to methicillin resistant Staphylococcus aureus Karen Gleason MD Sep 20, 2017 09:37
[2017-09-20 11:12] LABS: MAGNESIUM 1.9 MG/DL (1.5-2.5)
[2017-09-20] MEDS: DRONABINOL 2.5 MG CAP PO SCH ×2 (11:12→17:22)
[2017-09-20] MEDS: VANCOMYCIN INJ 1,750 MG in SODIUM CHLORID 0.9% 500 ML INJ 500 ML IV SCH (14:44)
[2017-09-21] VITALS (20 sets, daily range): BP systolic 117–165; BP diastolic 76–100; PULSE 50–162; RESP 16–20; TEMP 97.9–98.6; O2SAT 95–99
[2017-09-21] MEDS: VANCOMYCIN 500 MG VIAL (FOR ORAL USE ONLY) PO SCH ×4 (00:59→17:10)
[2017-09-21] MEDS: metroNIDAZOLE 500 MG INJ 100 ML IV SCH ×3 (01:00→16:30)
[2017-09-21 06:07] LABS: AUTOMATED NEUTROPHIL # 8.4 TH/MM3 (1.8-7.7); BASOPHIL # 0.1 TH/MM3 (0-0.2); BASOPHIL % 0.6 % (0.0-2.0); EOSINOPHIL % 0.2 % (0.0-4.0); HEMATOCRIT 28.7 % (39.0-51.0); HEMOGLOBIN 9.3 GM/DL (13.0-17.0); LYMPH % 8.1 % (9.0-44.0); LYMPHOCYTE # 0.8 TH/MM3 (1.0-4.8); MEAN CELL VOLUME 80.9 FL (80.0-100.0); MEAN CORPUSCULAR HEMOGLOBIN 26.3 PG (27.0-34.0); MEAN CORPUSCULAR HGB CONC 32.5 % (32.0-36.0); MEAN PLATELET VOLUME 7.9 FL (7.0-11.0); MONO % 5.4 % (0.0-8.0); MONOCYTE # 0.5 TH/MM3 (0-0.9); NEUT % 85.7 % (16.0-70.0); PLATELET COUNT 242 TH/MM3 (150-450); RED BLOOD COUNT 3.55 MIL/MM3 (4.50-5.90); RED CELL DISTRIBUTION WIDTH 20.3 % (11.6-17.2); WHITE BLOOD COUNT 9.7 TH/MM3 (4.0-11.0)
[2017-09-21 06:15] LABS: INTERNATIONAL NORMALIZED RATIO 2.8 RATIO
[2017-09-21 06:19] LABS: BICARBONATE 23.7 MEQ/L (21.0-32.0); BLOOD UREA NITROGEN LESS THAN 1 MG/DL (7-18); CALCIUM 7.6 MG/DL (8.5-10.1); CHLORIDE 112 MEQ/L (98-107); CREATININE 0.36 MG/DL (0.60-1.30); GLOMERULAR FILTRATION RATE 313 ML/MIN (>89); GLUCOSE,RANDOM 107 MG/DL (74-106); SODIUM (NA) 144 MEQ/L (136-145)
[2017-09-21] MEDS: MAGNESIUM OXIDE 400 MG TAB PO SCH (08:28)
[2017-09-21] MEDS: SODIUM CHLORIDE 0.9% FLUSH 10 ML FLUSH IV FLUSH SCH ×3 (08:28→20:02)
[2017-09-21] MEDS: LACTOBACILLUS ACIDOPHILUS TAB PO SCH ×3 (08:28→17:10)
--- NOTE | 2017-09-21 10:07 | HHI.PR ---
Subjective Remarks Low K replace by IV Plan for chemo today No fever or chills/ No n/v/d/c. Denies pain at this time. Feels cold as is cold in the room, will adjust temp. Objective Vitals Vital Signs Date Time Temp Pulse Resp B/P (MAP) Pulse Ox O2 Delivery O2 Flow Rate FiO2 09/21/17 08:32 98.2 50 20 165/80 (108) 98 09/21/17 08:32 98 09/21/17 08:27 Room Air 09/21/17 07:57 76 09/21/17 05:25 98.5 80 16 149/92 (111) 95 09/21/17 01:31 77 09/21/17 01:07 98.6 81 16 148/87 (107) 96 09/20/17 20:07 98.6 78 16 140/88 (105) 99 09/20/17 20:00 Room Air 09/20/17 18:20 81 09/20/17 17:22 98.4 84 18 154/95 (114) 98 09/20/17 14:46 98.4 79 18 129/90 (103) 100 I/O 09/20/17 09/20/17 09/20/17 09/21/17 09/21/17 09/21/17 07:00 15:00 23:00 07:00 15:00 23:00 Intake Total 1868 ml 920 ml Output Total 1400 ml 850 ml 825 ml Balance 468 ml -850 ml 95 ml Intake Oral 680 ml 920 ml IV Total 1188 ml Output Urine Total 1400 ml 850 ml 825 ml # Bowel Movements 2 2 Result Diagram: 09/21/17 0520 09/21/17 0520 Imaging Last Impressions Chest X-Ray 09/18/17 0000 Signed Impressions: Service Date/Time: Monday, September 18, 2017 15:43 - CONCLUSION: 1. The left PICC line is in good position at the atrial junction. 2. Stable bilateral bibasilar airspace disease, left greater than right. 3. Probable trace left pleural effusion. Liang Peralta MD Upper Extremity Ultrasound 09/10/17 0000 Signed Impressions: Service Date/Time: August 13:56 - CONCLUSION: 1. Nonocclusive thrombus in the jugular vein. 2. The other vessels are patent. 3. Solid lobular mass in the supraclavicular region consistent with adenopathy in this patient with history of lymphoma. Goldy Suarez MD Port Line Revision 09/08/17 0000 Signed Impressions: Service Date/Time: Friday, September 08, 2017 00:00 - CONCLUSION: Uncomplicated port removal as above. Adama Briceño MD Chest CT 09/06/17 0000 Signed Impressions: Service Date/Time: Wednesday, September 06, 2017 15:57 - CONCLUSION: 1. Patchy bilateral air space consolidation in both lung bases. Differential diagnosis includes bronchopneumonia and aspiration. Small pleural effusions improved from April. 2. Extensive mediastinal adenopathy also improved from April. Travis Ruffin MD Objective Remarks GENERAL: Cachectic chronically ill appearing -Swazi Swazi male patient. SKIN: Warm and dry. HEAD: Normocephalic. CARDIOVASCULAR: Regular rate and rhythm without murmurs, gallops, or rubs. RESPIRATORY: Breath sounds equal bilaterally. No accessory muscle use. GASTROINTESTINAL: Abdomen soft, non-tender, nondistended. EXTREMITIES: No pedal edema. NEUROLOGICAL: Awake, alert, and oriented x 3. Non-focal. Procedures None. 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 difficile colitis ICD Code: A04.7 - Enterocolitis due to Clostridium difficile Status: Resolved (7) Sepsis ICD Code: A41.9 - Sepsis, unspecified organism (8) Debility ICD Code: R53.81 - Other malaise Status: Acute Assessment and Plan Mr. Werner is a 47-year-old male patient with a known medical history of non- Hodgkin B-cell lymphoma, HTN and history of PE who presented to the ED with complaints of generalized weakness, nausea, vomiting and cough x 1 week. Hemoglobin 6.6 on presentation to ED, 2 units PRBC have been ordered. Acutely febrile, temp 102.5. WBC 20.9. Sepsis, MRSA tricuspid valve endocarditis, MRSA bacteremia, bilateral pneumonia - - s/p Port removal 09/10. - CXR shows bilateral infiltrates CT Chest shows bilateral infiltrates as well. - Blood cultures growing MRSA -Status post cefepime and Zithromax course -2-D echocardiogram with tricuspid valve vegetation - ID is following-Vancomycin for 6 weeks - Per ID Dr. Gely estevez to place PICC line if 09/13 blood cultures remain negative -C. difficile colitis On by mouth vancomycin per ID - until roughly Sep 26. Lactinex. Still has significant loose stools. 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 - Received Cytoxan and CHOP (cyclophosphamide, doxorubicin, vincristine and prednisone) - Subsequently, also received Rituxan and EPOCH (cyclophosphamide, doxorubicin, etoposide, vincristine, prednisone) - Last chemotherapy was 2 weeks prior to this admission. - Haptoglobin 617. LDH 196. Iron level 17, TIBC 105, ferritin 2200. - Heme/onc following. Microcytic hypochromic anemia: Hemoglobin 6.6/Hematocrit 19.6 on presentation. Hemoccult negative. s/p 2 units PRBC -Hb improved to 10-11 - monitor H&H Severe protein calorie malnutrition due to the colitis, chronically ill, poor appetite - cont ensure to diet. Persistent, severe hypokalemia: Due to GI loss. Receiving IV potassium. Continue by mouth potassium 30 mEq by mouth twice a day - he has poor absorption and is requiring IV supplementation. Replace K as need. Monitor levels and replace. Hypomagnesemia. Replace magnesium. Monitor level and replace as needed. Hypertension, chronic: BP 100/66 currently. No need for any antihypertensives. 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 cont Warfarin - monitor INR. pharmacy following for coumadin management DVT Prophylaxis: SCDs. on coumadin Discharge Planning SNF versus home Plan for Chemo on Thursday Discharge plan pending improvement. Patient needs chemotherapy will have it today 09/21. With persistent electrolyte abnormalities, needs K supplement mostly by IV as shaila bland poor absorption Discussed with the patient, nurse, hem/onc team Miss Treadwell Giulia CHAMPAGNE oncology Problem Qualifiers (1) Non-Hodgkin lymphoma: Qualified Codes: C83.38 - Diffuse large b-cell lymphoma, lymph nodes of multiple sites (2) Anemia: Qualified Codes: D64.9 - Anemia, unspecified (3) Sepsis: Qualified Codes: A41.02 - Sepsis due to methicillin resistant Staphylococcus aureus Karen Gleason MD Sep 21, 2017 10:07
--- NOTE | 2017-09-21 10:19 | PD.ONC.PN ---
Subjective Subjective Remarks Afebrile overnight. Patient resting in bed in nad. No complaints. Slept ok overnight. Hasn't been eating very well. he is tired of the hospital food. Objective Data Date Time Temp Pulse Resp B/P (MAP) Pulse Ox O2 Delivery O2 Flow Rate FiO2 09/21/17 08:32 98.2 50 20 165/80 (108) 98 09/21/17 08:32 98 09/21/17 08:27 Room Air 09/21/17 07:57 76 09/21/17 05:25 98.5 80 16 149/92 (111) 95 09/21/17 01:31 77 09/21/17 01:07 98.6 81 16 148/87 (107) 96 09/20/17 20:07 98.6 78 16 140/88 (105) 99 09/20/17 20:00 Room Air 09/20/17 18:20 81 09/20/17 17:22 98.4 84 18 154/95 (114) 98 09/20/17 14:46 98.4 79 18 129/90 (103) 100 09/21/17 09/21/17 09/21/17 07:00 15:00 23:00 Intake Total 920 ml Output Total 825 ml Balance 95 ml Result Diagram: 09/21/1751909/21/17519 Laboratory Results Laboratory Tests Test 09/21/17 05:20 White Blood Count 9.7 TH/MM3 Red Blood Count 3.55 MIL/MM3 Hemoglobin 9.3 GM/DL Hematocrit 28.7 % Mean Corpuscular Volume 80.9 FL Mean Corpuscular Hemoglobin 26.3 PG Mean Corpuscular Hemoglobin Concent 32.5 % Red Cell Distribution Width 20.3 % Platelet Count 242 TH/MM3 Mean Platelet Volume 7.9 FL Neutrophils (%) (Auto) 85.7 % Lymphocytes (%) (Auto) 8.1 % Monocytes (%) (Auto) 5.4 % Eosinophils (%) (Auto) 0.2 % Basophils (%) (Auto) 0.6 % Neutrophils # (Auto) 8.4 TH/MM3 Lymphocytes # (Auto) 0.8 TH/MM3 Monocytes # (Auto) 0.5 TH/MM3 Eosinophils # (Auto) 0.0 TH/MM3 Basophils # (Auto) 0.1 TH/MM3 CBC Comment DIFF FINAL Differential Comment Prothrombin Time 28.0 SEC Prothromb Time International Ratio 2.8 RATIO Blood Urea Nitrogen LESS THAN 1 MG/DL Creatinine 0.36 MG/DL Random Glucose 107 MG/DL Calcium Level 7.6 MG/DL Sodium Level 144 MEQ/L Potassium Level 2.9 MEQ/L Chloride Level 112 MEQ/L Carbon Dioxide Level 23.7 MEQ/L Anion Gap 8 MEQ/L Estimat Glomerular Filtration Rate 313 ML/MIN Administered Medications Medications (Trade) Dose Ordered Sig/Shyla Route PRN Reason Start Time Stop Time Status Last Admin Dose Admin Sodium Chloride (NS Flush) 2 ml UNSCH PRN IV FLUSH FLUSH AFTER USING IV ACCESS 09/06/17 13:00 09/08/17 22:44 Sodium Chloride (NS Flush) 2 ml BID IV FLUSH 09/06/17 21:00 09/19/17 21:00 Acetaminophen (Tylenol) 650 mg Q4H PRN PO headache, fever, pain 1-4 09/06/17 13:00 09/06/17 19:41 Dronabinol (Marinol) 2.5 mg BID@11,16 PO 09/07/17 11:00 09/20/17 17:22 Lactobacillus Acidophilus (Lactinex) 1 tab TID PO 09/11/17 09:00 09/21/17 08:28 Potassium Chloride/Sodium Chloride 1,000 ml @ 42 mls/hr [id number] IV 09/14/17 15:15 09/19/17 22:21 Vancomycin HCl (VANCOMYCIN for oral use only) 500 mg Q6H PO 09/16/17 18:00 09/21/17 05:23 Metronidazole 100 ml @ 100 mls/hr Q8H IV 09/16/17 17:00 09/21/17 08:28 Vancomycin HCl 1750 mg/Sodium Chloride 517.5 ml @ 250 mls/hr Q24H IV 09/18/17 15:00 09/20/17 14:44 Sodium Chloride (NS Flush) See Protocol DAILY IV FLUSH 09/19/17 09:00 09/19/17 09:41 Heparin Sodium (Porcine) (Heparin Central Flush) See Protocol DAILY IV FLUSH 09/19/17 09:00 09/19/17 12:20 Magnesium Oxide (Mag-Ox) 400 mg DAILY PO 09/19/17 09:00 09/21/17 08:28 Objective Remarks GENERAL: Middle aged male sitting up in bed in nad. SKIN: Warm and dry. HEAD: Normocephalic. EYES: No injection or drainage. NECK: Supple, trachea midline. CARDIOVASCULAR: Regular rate and rhythm RESPIRATORY: anterior canas clear. GASTROINTESTINAL: Abdomen soft, non-tender, nondistended. EXTREMITIES: No cyanosis NEUROLOGICAL: awake and alert. normal speech. Assessment/Plan Problem List: (1) Sepsis ICD Codes: A41.9 - Sepsis, unspecified organism Plan: --ID following --Most recent blood cultures show no growth --++ vanco, (2) Pneumonia ICD Codes: J18.9 - Pneumonia, unspecified organism Plan: --on antibiotics --ID following. (3) Normocytic anemia ICD Codes: D64.9 - Anemia, unspecified Status: Acute Plan: --monitor and transfuse as needed. (4) Pulmonary emboli ICD Codes: I26.99 - Other pulmonary embolism without acute cor pulmonale Status: Chronic Plan: --on Coumadin (5) Non-Hodgkin lymphoma ICD Codes: C85.90 - Non-Hodgkin lymphoma, unspecified, unspecified site Status: Acute Plan: -- 09/21: start EPOCH (6) C. difficile colitis ICD Codes: A04.7 - Enterocolitis due to Clostridium difficile Status: Resolved Plan: --on po vancomycin Assessment 47y/o male with high-grade diffuse large B-cell lymphoma admitted for pneumonia and nausea/vomiting as well as anemia. History of pulmonary embolism currently on anticoagulation. Hypertension. Protein-calorie malnutrition. Plan 1. R-EPOCH chemotherapy today 2. continue antibiotics per ID 3. continue coumadin. Attending Statement The exam, history, and the medical decision-making described in the above note were completed with the assistance of the mid-level provider. I reviewed and agree with the findings presented. I attest that I had a [id number] encounter with the patient on the same day, and personally performed and documented my assessment and findings in the medical record. Still weak but slightly improved. Diarrhea improved. No abdominal pain. Sat up in chair yesterday. Will start Rituxan today and EPOCH tomorrow. Monitor closely for toxicities. Problem Qualifiers (1) Sepsis: Qualified Codes: A41.02 - Sepsis due to methicillin resistant Staphylococcus aureus (2) Non-Hodgkin lymphoma: Qualified Codes: C83.38 - Diffuse large b-cell lymphoma, lymph nodes of multiple sites Brenda Platt Sep 21, 2017 10:19 Ruslan Connelly MD Sep 21, 2017 12:01
[2017-09-21] MEDS: POTASSIUM CHLOR 20 MEQ PREMIX 100 ML IV SCH ×2 (11:26→13:57)
[2017-09-21] MEDS: DRONABINOL 2.5 MG CAP PO SCH ×2 (11:27→17:11)
[2017-09-21] MEDS ORDERED: ACETAMINOPHEN 325 MG TAB PO ONE (13:30)
[2017-09-21] MEDS ORDERED: diphenhydrAMINE HCL 50 MG CAP PO ONE (13:30)
[2017-09-21] MEDS ORDERED: SODIUM CHLOR 0.9% 1000 ML INJ 1,000 ML IV SCH (14:00)
[2017-09-21] MEDS ORDERED: RITUXIMAB IV ONE (14:00)
[2017-09-21] MEDS ORDERED: SODIUM CHLORID 0.9% IV ONE (14:00)
[2017-09-21] MEDS ORDERED: PHARMACY ORDERED LAB ONE (14:45)
[2017-09-21] MEDS: VANCOMYCIN INJ 1,750 MG in SODIUM CHLORID 0.9% 500 ML INJ 500 ML IV SCH (16:56)
[2017-09-21] MEDS ORDERED: HYDROCORTISONE SOD SUCCINATE 100 MG VIAL IV ONE (20:30)
[2017-09-21] MEDS ORDERED: diphenhydrAMINE HCL 25 MG CAP PO ONE (20:30)
[2017-09-21] MEDS ORDERED: DILTIAZEM HCL 25 MG/5 ML VIAL IV PUSH ONE (21:30)
[2017-09-21] MEDS ORDERED: DILTIAZEM INJ 125 MG in SODIUM CHLORIDE 0.9% INJ 100 ML IV PRN (21:30)
[2017-09-21 21:55] LABS: AUTOMATED NEUTROPHIL # 6.9 TH/MM3 (1.8-7.7); BASOPHIL # 0.1 TH/MM3 (0-0.2); BASOPHIL % 0.6 % (0.0-2.0); EOSINOPHIL % 0.2 % (0.0-4.0); HEMATOCRIT 30.1 % (39.0-51.0); HEMOGLOBIN 9.7 GM/DL (13.0-17.0); LYMPH % 11.3 % (9.0-44.0); MEAN CELL VOLUME 81.3 FL (80.0-100.0); MEAN CORPUSCULAR HEMOGLOBIN 26.3 PG (27.0-34.0); MEAN CORPUSCULAR HGB CONC 32.3 % (32.0-36.0); MEAN PLATELET VOLUME 8.2 FL (7.0-11.0); MONO % 6.5 % (0.0-8.0); MONOCYTE # 0.5 TH/MM3 (0-0.9); NEUT % 81.4 % (16.0-70.0); PLATELET COUNT 260 TH/MM3 (150-450); RED BLOOD COUNT 3.71 MIL/MM3 (4.50-5.90); WHITE BLOOD COUNT 8.4 TH/MM3 (4.0-11.0)
[2017-09-21 22:19] LABS: BICARBONATE 23.9 MEQ/L (21.0-32.0); BLOOD UREA NITROGEN LESS THAN 1 MG/DL (7-18); CALCIUM 7.7 MG/DL (8.5-10.1); CHLORIDE 110 MEQ/L (98-107); CREATININE 0.47 MG/DL (0.60-1.30); GLOMERULAR FILTRATION RATE 230 ML/MIN (>89); GLUCOSE,RANDOM 99 MG/DL (74-106); MAGNESIUM 1.6 MG/DL (1.5-2.5); SODIUM (NA) 144 MEQ/L (136-145)
[2017-09-21] MEDS ORDERED: POTASSIUM CHLORIDE 20 MEQ CONTROLLED RELEASE TAB PO ONE (23:00)
[2017-09-21] MEDS ORDERED: MAGNESIUM OXIDE 400 MG TAB PO ONE (23:00)
[2017-09-21] MEDS: DILTIAZEM HCL 30 MG TAB PO SCH (23:56)
[2017-09-22] VITALS (20 sets, daily range): BP systolic 115–148; BP diastolic 56–91; PULSE 56–122; RESP 16–18; TEMP 97.9–98.1; O2SAT 98–100
[2017-09-22] MEDS: VANCOMYCIN 500 MG VIAL (FOR ORAL USE ONLY) PO SCH ×4 (00:43→17:22)
[2017-09-22] MEDS: metroNIDAZOLE 500 MG INJ 100 ML IV SCH ×3 (00:44→17:22)
[2017-09-22] MEDS ORDERED: VANCOMYCIN INJ 750 MG in SODIUM CHLOR 0.9% 250 ML INJ 250 ML IV SCH (04:00)
[2017-09-22 05:11] LABS: AUTOMATED NEUTROPHIL # 8.6 TH/MM3 (1.8-7.7); BASOPHIL % 0.1 % (0.0-2.0); HEMATOCRIT 28.6 % (39.0-51.0); HEMOGLOBIN 9.5 GM/DL (13.0-17.0); LYMPH % 4.9 % (9.0-44.0); LYMPHOCYTE # 0.4 TH/MM3 (1.0-4.8); MEAN CELL VOLUME 80.2 FL (80.0-100.0); MEAN CORPUSCULAR HEMOGLOBIN 26.6 PG (27.0-34.0); MEAN CORPUSCULAR HGB CONC 33.2 % (32.0-36.0); MEAN PLATELET VOLUME 8.2 FL (7.0-11.0); MONO % 1.8 % (0.0-8.0); MONOCYTE # 0.2 TH/MM3 (0-0.9); NEUT % 93.2 % (16.0-70.0); PLATELET COUNT 255 TH/MM3 (150-450); RED BLOOD COUNT 3.57 MIL/MM3 (4.50-5.90); RED CELL DISTRIBUTION WIDTH 20.8 % (11.6-17.2); WHITE BLOOD COUNT 9.3 TH/MM3 (4.0-11.0)
[2017-09-22 05:16] LABS: INTERNATIONAL NORMALIZED RATIO 3.1 RATIO; PROTHROMBIN TIME - PATIENT 31.5 SEC (9.8-11.6)
[2017-09-22 05:31] LABS: BICARBONATE 26.5 MEQ/L (21.0-32.0); CALCIUM 7.6 MG/DL (8.5-10.1); CREATININE 0.58 MG/DL (0.60-1.30)
[2017-09-22] MEDS: DILTIAZEM HCL 30 MG TAB PO SCH ×3 (06:47→17:23)
[2017-09-22] MEDS: NS + KCL 40 MEQ INJ 1,000 ML IV SCH ×2 (06:57→13:47)
[2017-09-22] MEDS: SODIUM CHLORIDE 0.9% FLUSH 10 ML FLUSH IV FLUSH SCH ×3 (09:00→21:06)
[2017-09-22] MEDS ORDERED: POTASSIUM CHLORIDE 20 MEQ PWD PACKET PO ONE (09:00)
[2017-09-22] MEDS: LACTOBACILLUS ACIDOPHILUS TAB PO SCH ×3 (09:22→17:23)
[2017-09-22] MEDS: MAGNESIUM OXIDE 400 MG TAB PO SCH (09:23)
--- NOTE | 2017-09-22 09:33 | PD.ONC.PN ---
Subjective Subjective Remarks Afebrile overnight. Patient started Rituxan last night, then developed HR of 190. Patient had been vomiting in room when nurses went to check on him. The Rituxan was stopped and patient was started on Cardizem drip. HR improved to 70s this AM. Patient denies complaints this AM. Objective Data Date Time Temp Pulse Resp B/P (MAP) Pulse Ox O2 Delivery O2 Flow Rate FiO2 09/22/17 09:22 97.9 56 18 148/91 (110) 99 09/22/17 07:59 67 129/82 09/22/17 07:55 67 129/82 (98) 09/22/17 07:00 65 09/22/17 06:40 72 139/79 (99) 09/22/17 05:17 73 136/82 (100) 09/22/17 04:00 78 09/22/17 03:43 98.1 76 16 126/84 (98) 99 09/22/17 03:05 74 126/71 (89) 09/22/17 01:58 77 115/67 (83) 09/22/17 01:52 74 09/22/17 01:17 82 117/56 (76) 09/22/17 00:43 93 129/80 (96) 09/22/17 00:40 92 09/22/17 00:04 122 09/21/17 23:51 98.1 114 16 117/93 (101) 98 09/21/17 23:04 121 123/87 (99) 09/21/17 22:30 99 124/93 (103) 09/21/17 22:27 132 137/90 09/21/17 22:25 127 137/90 (106) 09/21/17 22:22 119 124/78 (93) 09/21/17 22:05 145 142/99 (113) 96 09/21/17 20:23 145 09/21/17 20:11 162 09/21/17 20:03 97.9 151 141/76 (97) 97 09/21/17 20:00 Room Air 09/21/17 19:53 144 09/21/17 19:38 98.6 130 18 140/86 (104) 96 09/21/17 19:29 80 09/21/17 19:02 21 09/21/17 18:58 98.2 79 18 156/96 (116) 99 09/21/17 16:58 98.6 80 18 139/87 (104) 98 09/21/17 11:29 98.6 67 20 134/100 (111) 97 09/22/17 09/22/17 09/22/17 07:00 15:00 23:00 Intake Total 1000 ml 58 ml Output Total 250 ml Balance 750 ml 58 ml Result Diagram: 09/22/17 0330 09/22/17 0330 Laboratory Results Laboratory Tests Test 09/21/17 16:55 09/21/17 21:00 09/22/17 03:30 Vancomycin Level Trough 12.9 MCG/ML White Blood Count 8.4 TH/MM3 9.3 TH/MM3 Red Blood Count 3.71 MIL/MM3 3.57 MIL/MM3 Hemoglobin 9.7 GM/DL 9.5 GM/DL Hematocrit 30.1 % 28.6 % Mean Corpuscular Volume 81.3 FL 80.2 FL Mean Corpuscular Hemoglobin 26.3 PG 26.6 PG Mean Corpuscular Hemoglobin Concent 32.3 % 33.2 % Red Cell Distribution Width 20.0 % 20.8 % Platelet Count 260 TH/MM3 255 TH/MM3 Mean Platelet Volume 8.2 FL 8.2 FL Neutrophils (%) (Auto) 81.4 % 93.2 % Lymphocytes (%) (Auto) 11.3 % 4.9 % Monocytes (%) (Auto) 6.5 % 1.8 % Eosinophils (%) (Auto) 0.2 % 0.0 % Basophils (%) (Auto) 0.6 % 0.1 % Neutrophils # (Auto) 6.9 TH/MM3 8.6 TH/MM3 Lymphocytes # (Auto) 1.0 TH/MM3 0.4 TH/MM3 Monocytes # (Auto) 0.5 TH/MM3 0.2 TH/MM3 Eosinophils # (Auto) 0.0 TH/MM3 0.0 TH/MM3 Basophils # (Auto) 0.1 TH/MM3 0.0 TH/MM3 CBC Comment DIFF FINAL DIFF FINAL Differential Comment Blood Urea Nitrogen LESS THAN 1 MG/DL 1 MG/DL Creatinine 0.47 MG/DL 0.58 MG/DL Random Glucose 99 MG/DL 113 MG/DL Calcium Level 7.7 MG/DL 7.6 MG/DL Magnesium Level 1.6 MG/DL Sodium Level 144 MEQ/L 143 MEQ/L Potassium Level 3.1 MEQ/L 3.3 MEQ/L Chloride Level 110 MEQ/L 109 MEQ/L Carbon Dioxide Level 23.9 MEQ/L 26.5 MEQ/L Anion Gap 10 MEQ/L 8 MEQ/L Estimat Glomerular Filtration Rate 230 ML/MIN 180 ML/MIN Prothrombin Time 31.5 SEC Prothromb Time International Ratio 3.1 RATIO Administered Medications Medications (Trade) Dose Ordered Sig/Shyla Route PRN Reason Start Time Stop Time Status Last Admin Dose Admin Sodium Chloride (NS Flush) 2 ml UNSCH PRN IV FLUSH FLUSH AFTER USING IV ACCESS 09/06/17 13:00 09/08/17 22:44 Sodium Chloride (NS Flush) 2 ml BID IV FLUSH 09/06/17 21:00 09/19/17 21:00 Acetaminophen (Tylenol) 650 mg Q4H PRN PO headache, fever, pain 1-4 09/06/17 13:00 09/06/17 19:41 Ondansetron HCl (Zofran Inj) 4 mg Q6H PRN IVP NAUSEA OR VOMITING 09/06/17 13:00 09/21/17 19:40 Dronabinol (Marinol) 2.5 mg BID@11,16 PO 09/07/17 11:00 09/21/17 17:11 Lactobacillus Acidophilus (Lactinex) 1 tab TID PO 09/11/17 09:00 09/22/17 09:22 Potassium Chloride/Sodium Chloride 1,000 ml @ 42 mls/hr [id number] IV 09/14/17 15:15 09/22/17 06:57 Vancomycin HCl (VANCOMYCIN for oral use only) 500 mg Q6H PO 09/16/17 18:00 09/22/17 06:47 Metronidazole 100 ml @ 100 mls/hr Q8H IV 09/16/17 17:00 09/22/17 09:22 Sodium Chloride (NS Flush) See Protocol DAILY IV FLUSH 09/19/17 09:00 09/19/17 09:41 Heparin Sodium (Porcine) (Heparin Central Flush) See Protocol DAILY IV FLUSH 09/19/17 09:00 09/19/17 12:20 Magnesium Oxide (Mag-Ox) 400 mg DAILY PO 09/19/17 09:00 09/22/17 09:23 Vancomycin HCl 750 mg/Sodium Chloride 257.5 ml @ 250 mls/hr Q12H IV 09/22/17 04:00 09/22/17 03:43 Diltiazem HCl (Cardizem) 30 mg Q6HR PO 09/22/17 00:00 09/22/17 06:47 Objective Remarks GENERAL: Cachetic aged male lying in bed in nad. SKIN: Warm and dry. HEAD: Normocephalic. EYES: No injection or drainage. NECK: Supple, trachea midline. CARDIOVASCULAR: IRR RESPIRATORY: anterior canas clear. GASTROINTESTINAL: Abdomen soft, non-tender, nondistended. EXTREMITIES: No cyanosis NEUROLOGICAL: awake and alert, normal speech. moving all extremities. Assessment/Plan Problem List: (1) Sepsis ICD Codes: A41.9 - Sepsis, unspecified organism Plan: --ID following --Most recent blood cultures show no growth --++ vanco, --echo on 09/12 showed vegetation (2) Pneumonia ICD Codes: J18.9 - Pneumonia, unspecified organism Plan: --on antibiotics --ID following. (3) Normocytic anemia ICD Codes: D64.9 - Anemia, unspecified Status: Acute Plan: --monitor and transfuse as needed. (4) Pulmonary emboli ICD Codes: I26.99 - Other pulmonary embolism without acute cor pulmonale Status: Chronic Plan: --on Coumadin (5) Non-Hodgkin lymphoma ICD Codes: C85.90 - Non-Hodgkin lymphoma, unspecified, unspecified site Status: Acute Plan: -- 09/21: start EPOCH (6) C. difficile colitis ICD Codes: A04.7 - Enterocolitis due to Clostridium difficile Status: Resolved Plan: --on po vancomycin Assessment 47y/o male with high-grade diffuse large B-cell lymphoma admitted for pneumonia and nausea/vomiting as well as anemia. History of pulmonary embolism currently on anticoagulation. Hypertension. Protein-calorie malnutrition. Plan 1. hold chemotherapy 2. consult cardiology for irregular HB last night, + h/o bigeminy last time we gave patient chemo (08/13) Attending Statement The exam, history, and the medical decision-making described in the above note were completed with the assistance of the mid-level provider. I reviewed and agree with the findings presented. I attest that I had a [id number] encounter with the patient on the same day, and personally performed and documented my assessment and findings in the medical record. Pt developed A.fib with RVR yesterday when he was receiving rituxan, rituxan is on hold. He was started on cardizem drip. Heart rate is controlled this am. Switch to oral cardizem. 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 Recent echo stable EF but pt has TV endocarditis. Hold chemotx until clear by cardiology. Still has persistent disease despite aggressive chemo. he and family does not want bone marrow transplant. prognosis is guarded. Will consider consolidation XRt if not able to tolerate more chemotx. Problem Qualifiers (1) Sepsis: Qualified Codes: A41.02 - Sepsis due to methicillin resistant Staphylococcus aureus (2) Non-Hodgkin lymphoma: Qualified Codes: C83.38 - Diffuse large b-cell lymphoma, lymph nodes of multiple sites Brenda Platt Sep 22, 2017 09:33 Ruslan Connelly MD Sep 22, 2017 15:14
[2017-09-22] MEDS: DRONABINOL 2.5 MG CAP PO SCH ×2 (11:37→15:49)
--- NOTE | 2017-09-22 12:21 | EKG ---
Date Performed: 09/21/2017 Time Performed: 20:52:20 PTAGE: 47 years EKG: Atrial fibrillation with rapid ventricular response with intermittent right bundle branch b lock with aberrant conduction Low limb lead voltage Abnormal ECG Compared to PREVIOUS TRACING , atrial fibrillation is new as is the low limb lead voltage. PREVIOUS T RACIN08/13/2017 13.47 DOCTOR: Catalino Delacruz Interpretating Date/Time 09/22/2017 12:20:53
[2017-09-22] MEDS ORDERED: GRANISETRON HCL 1 MG/ML VIAL IV PUSH SCH (13:30)
[2017-09-22] MEDS ORDERED: predniSONE 1 MG TAB PO SCH (13:30)
[2017-09-22] MEDS ORDERED: predniSONE 50 MG TAB PO SCH (13:30)
[2017-09-22] MEDS ORDERED: predniSONE 10 MG TAB PO SCH (13:30)
[2017-09-22] MEDS: VANCOMYCIN INJ 1,750 MG in SODIUM CHLORID 0.9% 500 ML INJ 500 ML IV SCH (13:59)
[2017-09-22] MEDS ORDERED: DOXORUBICIN IV-CENTRAL SCH (14:00)
[2017-09-22] MEDS ORDERED: VINCRISTINE IV-CENTRAL SCH (14:00)
[2017-09-22] MEDS ORDERED: ETOPOSIDE IV-CENTRAL SCH (14:00)
[2017-09-22] MEDS ORDERED: [UNRECOGNIZED DRUG - OTHER] IV-CENTRAL SCH (14:00)
--- NOTE | 2017-09-22 15:29 | MB ---
cc: DANNIELLE RIVERO DATE OF CONSULTATION 09/22/2017 HISTORY OF PRESENT ILLNESS Mr. Werner is a 47-year-old black male with a history of non-Hodgkin's lymphoma. He has no previous cardiac history. He was started on Rituxan last night and developed atrial fibrillation with rapid ventricular response with heart rate 190. The Rituxan was stopped. The patient was started on IV diltiazem which was eventually switched to p.o. diltiazem. His heart spontaneously converted to sinus rhythm. He denies any chest pain or shortness of breath. He has had a brief episode of nonsustained ventricular tachycardia. His echocardiogram showed an ejection fraction of 45-50%, mild global hypokinesis and a small tricuspid valve vegetation. PAST MEDICAL HISTORY 1. Non-Hodgkin's high-grade diffuse large B-cell lymphoma. 2. History of acute renal failure. 3. History of thromboembolism on anticoagulation. 4. Hypertension. 5. Malnutrition. 6. Myelosuppression related to chemotherapy. 7. History of lymph node biopsy. 8. Bone marrow biopsy. 9. Port placement. 10.Vas-Cath placement. MEDICATIONS 1. Kytril. 2. Deltasone. 3. Vancomycin. 4. Diltiazem 30 mg q.6h. 5. Metronidazole. 6. Potassium. 7. Marinol. ALLERGIES No known medical allergies. SOCIAL HISTORY The patient smokes, does not drink alcohol. FAMILY HISTORY Positive for heart disease in his grandfather. REVIEW OF SYSTEMS Otherwise negative. PHYSICAL EXAMINATION VITAL SIGNS: Blood pressure 113/74, pulse 72 and regular. HEENT: Negative. NECK: 2+ carotid upstrokes. No bruits. LUNGS: Clear. HEART: Regular with no murmur, gallop or rub. ABDOMEN: Soft. No bruits. EXTREMITIES: Without edema. 2+ distal pulses. NEUROLOGIC: Grossly nonfocal. GENERAL: The patient appears cachectic. EKG EKG was reviewed and showed atrial fibrillation with rapid ventricular response and nonspecific ST-T changes. LABORATORY Hemoglobin 9.5. Potassium 3.3. Creatinine 0.6. Magnesium 1.6. DIAGNOSIS 1. Paroxysmal atrial fibrillation with rapid ventricular response. 2. Non-Hodgkin's lymphoma. 3. Sepsis. 4. Tricuspid valve endocarditis. 5. Anemia. DISPOSITION Mr. Werner will be monitored on telemetry. He has converted back to sinus rhythm. He is now on p.o. diltiazem. If necessary, he can be re-challenged with Rituxan. This was discussed with oncology service. He will continue antibiotics as per Infectious Disease for his tricuspid endocarditis. I will follow him for cardiology during his hospitalization. MD VALARIE Dutta/LYDIA /2:06 PM /3:09 PM RAVINDRA
[2017-09-22] MEDS: POTASSIUM CHLORIDE 10 MEQ CONTROLLED RELEASE TAB PO SCH (21:07)
--- NOTE | 2017-09-22 22:21 | HHI.PR ---
Subjective Remarks Patient is feeling better. Less diarrhea. Hgb is relatively stable (9.5 today) . WBC count is improved. He has hypokalemia present this morning. Arrhythmias are being monitored and managed and showing improvement. Objective Vital Signs Date Time Temp Pulse Resp B/P (MAP) Pulse Ox O2 Delivery O2 Flow Rate FiO2 09/22/17 20:59 97.9 82 18 122/77 (92) 98 09/22/17 20:44 68 09/22/17 15:51 98.1 69 18 139/82 (101) 99 09/22/17 11:48 72 09/22/17 11:35 98.1 75 18 129/74 (92) 100 09/22/17 09:40 Room Air 09/22/17 09:22 97.9 56 18 148/91 (110) 99 09/22/17 09:00 98 21 09/22/17 07:59 67 129/82 09/22/17 07:55 67 129/82 (98) 09/22/17 07:00 65 09/22/17 06:40 72 139/79 (99) 09/22/17 05:17 73 136/82 (100) 09/22/17 04:00 78 09/22/17 03:43 98.1 76 16 126/84 (98) 99 09/22/17 03:05 74 126/71 (89) 09/22/17 01:58 77 115/67 (83) 09/22/17 01:52 74 09/22/17 01:17 82 117/56 (76) 09/22/17 00:43 93 129/80 (96) 09/22/17 00:40 92 09/22/17 00:04 122 09/21/17 23:51 98.1 114 16 117/93 (101) 98 09/21/17 23:04 121 123/87 (99) 09/21/17 22:30 99 124/93 (103) 09/21/17 22:27 132 137/90 09/21/17 22:25 127 137/90 (106) 09/21/17 22:22 119 124/78 (93) I/O 09/21/17 09/21/17 09/21/17 09/22/17 09/22/17 09/22/17 06:59 14:59 22:59 06:59 14:59 22:59 Intake Total 920 ml 100 ml 750 ml 1000 ml 158 ml 1080 ml Output Total 825 ml 950 ml 250 ml 750 ml Balance 95 ml 100 ml -200 ml 750 ml 158 ml 330 ml Intake Oral 920 ml 1080 ml IV Total 100 ml 750 ml 1000 ml 158 ml Output Urine Total 825 ml 950 ml 250 ml 750 ml # Bowel Movements 2 3 1 2 Result Diagram: 09/22/1732909/22/17 033 Objective Remarks GENERAL: A&Ox3 SKIN: Warm and dry. HEAD: Normocephalic. EYES: No scleral icterus. No injection or drainage. NECK: Supple, trachea midline. No JVD or lymphadenopathy. CARDIOVASCULAR: Regular rate and rhythm without murmurs, gallops, or rubs. RESPIRATORY: Breath sounds equal bilaterally. No accessory muscle use. GASTROINTESTINAL: Abdomen soft, non-tender, nondistended. MUSCULOSKELETAL: No cyanosis, or edema. BACK: Nontender without obvious deformity. No CVA tenderness. A/P Problem List: (1) Atrial fibrillation with RVR ICD Code: I48.91 - Unspecified atrial fibrillation (2) Anemia ICD Code: D64.9 - Anemia, unspecified Status: Acute Assessment and Plan Assessment and Plan 47 year old male admitted with Sepsis related to MRSA endocarditis (tricuspid valve), bilateral pneumonia, and MRSA bacteremia with underlying NH B-cell Lymphoma. Mr. Werner is a 47-year-old male patient with a known medical history of non- Hodgkin B-cell lymphoma, HTN and history of PE who presented to the ED with complaints of generalized weakness, nausea, vomiting and cough x 1 week. Hemoglobin 6.6 on presentation to ED, 2 units PRBC have been ordered. Acutely febrile, temp 102.5. WBC 20.9. Sepsis MRSA tricuspid valve endocarditis MRSA bacteremia bilateral pneumonia Port removed 09/10/17 Post treatment with cefepime and zithromax Vancomycin for 6 weeks (ongoing) ID following C. 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 Received Cytoxan and CHOP (cyclophosphamide, doxorubicin, vincristine and prednisone) Subsequently, also received Rituxan and EPOCH (cyclophosphamide, doxorubicin, etoposide, vincristine, prednisone) Last chemotherapy was 2 weeks prior to this admission. Continue management per Heme/Onc Microcytic Hypochromic Anemia Follow CBC Presently Hgb is stable Follow H&H Severe protein calorie malnutrition due to the colitis, chronically ill, poor appetite Continue ensure with diet. Hypokalemia From GI loss. Monitor potassium levels Replace as needed Hypomagnesemia Replace magnesium as needed. Monitor levels Hypertension chronic No need for treatments currently History of PE Coumadin Follow INR Follow clinically DVT Prophylaxis SCDs Coumadin Problem Qualifiers (1) Anemia: Qualified Codes: D64.9 - Anemia, unspecified Adama Medina MD Sep 22, 2017 22:21
[2017-09-23] VITALS (16 sets, daily range): BP systolic 128–166; BP diastolic 74–98; PULSE 65–79; RESP 16–25; TEMP 97.6–98.5; O2SAT 94–100
[2017-09-23] MEDS: VANCOMYCIN 500 MG VIAL (FOR ORAL USE ONLY) PO SCH ×4 (00:45→17:20)
[2017-09-23] MEDS: DILTIAZEM HCL 30 MG TAB PO SCH ×4 (00:45→17:20)
[2017-09-23] MEDS: metroNIDAZOLE 500 MG INJ 100 ML IV SCH ×3 (00:45→21:07)
[2017-09-23 05:11] LABS: AUTOMATED NEUTROPHIL # 8.4 TH/MM3 (1.8-7.7); BASOPHIL % 0.1 % (0.0-2.0); EOSINOPHIL % 0.3 % (0.0-4.0); HEMATOCRIT 27.8 % (39.0-51.0); LYMPHOCYTE # 0.9 TH/MM3 (1.0-4.8); MEAN CELL VOLUME 81.2 FL (80.0-100.0); MEAN CORPUSCULAR HEMOGLOBIN 26.1 PG (27.0-34.0); MEAN CORPUSCULAR HGB CONC 32.2 % (32.0-36.0); MEAN PLATELET VOLUME 7.7 FL (7.0-11.0); MONO % 5.2 % (0.0-8.0); MONOCYTE # 0.5 TH/MM3 (0-0.9); NEUT % 85.4 % (16.0-70.0); PLATELET COUNT 229 TH/MM3 (150-450); RED BLOOD COUNT 3.43 MIL/MM3 (4.50-5.90); RED CELL DISTRIBUTION WIDTH 20.3 % (11.6-17.2); WHITE BLOOD COUNT 9.8 TH/MM3 (4.0-11.0)
[2017-09-23 05:19] LABS: INTERNATIONAL NORMALIZED RATIO 2.6 RATIO; PROTHROMBIN TIME - PATIENT 26.6 SEC (9.8-11.6)
[2017-09-23 05:31] LABS: ALBUMIN 1.4 GM/DL (3.4-5.0); BICARBONATE 24.4 MEQ/L (21.0-32.0); BLOOD UREA NITROGEN 1 MG/DL (7-18); CALCIUM 7.6 MG/DL (8.5-10.1); CHLORIDE 113 MEQ/L (98-107); CREATININE 0.69 MG/DL (0.60-1.30); GLOMERULAR FILTRATION RATE 148 ML/MIN (>89); GLUCOSE,RANDOM 94 MG/DL (74-106); SODIUM (NA) 145 MEQ/L (136-145)
[2017-09-23 05:32] LABS: ALT (GPT) LESS THAN 6 U/L (12-78); AST (GOT) 11 U/L (15-37)
[2017-09-23 05:35] LABS: ALKALINE PHOSPHATASE 67 U/L (45-117); TOTAL BILIRUBIN ADULT 0.2 MG/DL (0.2-1.0); TOTAL PROTEIN 4.8 GM/DL (6.4-8.2)
[2017-09-23 05:55] LABS: MAGNESIUM 1.5 MG/DL (1.5-2.5); PHOSPHORUS 1.6 MG/DL (2.5-4.9)
[2017-09-23] MEDS: LACTOBACILLUS ACIDOPHILUS TAB PO SCH ×3 (07:44→17:20)
[2017-09-23] MEDS: SODIUM CHLORIDE 0.9% FLUSH 10 ML FLUSH IV FLUSH SCH ×3 (07:45→20:07)
[2017-09-23] MEDS: MAGNESIUM OXIDE 400 MG TAB PO SCH (07:45)
[2017-09-23] MEDS: POTASSIUM CHLORIDE 10 MEQ CONTROLLED RELEASE TAB PO SCH ×2 (07:45→20:08)
--- NOTE | 2017-09-23 09:08 | PD.ONC.PN ---
Subjective Subjective Remarks Afebrile overnight. Patient resting in bed in nad. No overnight events. Rate controlled today. Objective Data Date Time Temp Pulse Resp B/P (MAP) Pulse Ox O2 Delivery O2 Flow Rate FiO2 09/23/17 07:52 Room Air 09/23/17 07:41 98.3 74 18 142/93 (109) 98 09/23/17 04:08 98.5 73 16 157/93 (114) 99 09/23/17 00:42 98.1 65 18 154/92 (112) 100 09/23/17 00:10 71 09/22/17 20:59 97.9 82 18 122/77 (92) 98 09/22/17 20:55 Room Air 09/22/17 20:44 68 09/22/17 15:51 98.1 69 18 139/82 (101) 99 09/22/17 11:48 72 09/22/17 11:35 98.1 75 18 129/74 (92) 100 09/22/17 09:40 Room Air 09/22/17 09:22 97.9 56 18 148/91 (110) 99 09/23/17 09/23/17 09/23/17 07:00 15:00 23:00 Intake Total 1235 ml Output Total 1100 ml Balance 135 ml Result Diagram: 09/23/1741909/23/17419 Laboratory Results Laboratory Tests Test 09/23/17 04:20 White Blood Count 9.8 TH/MM3 Red Blood Count 3.43 MIL/MM3 Hemoglobin 9.0 GM/DL Hematocrit 27.8 % Mean Corpuscular Volume 81.2 FL Mean Corpuscular Hemoglobin 26.1 PG Mean Corpuscular Hemoglobin Concent 32.2 % Red Cell Distribution Width 20.3 % Platelet Count 229 TH/MM3 Mean Platelet Volume 7.7 FL Neutrophils (%) (Auto) 85.4 % Lymphocytes (%) (Auto) 9.0 % Monocytes (%) (Auto) 5.2 % Eosinophils (%) (Auto) 0.3 % Basophils (%) (Auto) 0.1 % Neutrophils # (Auto) 8.4 TH/MM3 Lymphocytes # (Auto) 0.9 TH/MM3 Monocytes # (Auto) 0.5 TH/MM3 Eosinophils # (Auto) 0.0 TH/MM3 Basophils # (Auto) 0.0 TH/MM3 CBC Comment DIFF FINAL Differential Comment Prothrombin Time 26.6 SEC Prothromb Time International Ratio 2.6 RATIO Blood Urea Nitrogen 1 MG/DL Creatinine 0.69 MG/DL Random Glucose 94 MG/DL Total Protein 4.8 GM/DL Albumin 1.4 GM/DL Calcium Level 7.6 MG/DL Phosphorus Level 1.6 MG/DL Magnesium Level 1.5 MG/DL Alkaline Phosphatase 67 U/L Aspartate Amino Transf (AST/SGOT) 11 U/L Alanine Aminotransferase (ALT/SGPT) LESS THAN 6 U/L Total Bilirubin 0.2 MG/DL Sodium Level 145 MEQ/L Potassium Level 3.6 MEQ/L Chloride Level 113 MEQ/L Carbon Dioxide Level 24.4 MEQ/L Anion Gap 8 MEQ/L Estimat Glomerular Filtration Rate 148 ML/MIN Administered Medications Medications (Trade) Dose Ordered Sig/Shyla Route PRN Reason Start Time Stop Time Status Last Admin Dose Admin Sodium Chloride (NS Flush) 2 ml UNSCH PRN IV FLUSH FLUSH AFTER USING IV ACCESS 09/06/17 13:00 09/08/17 22:44 Sodium Chloride (NS Flush) 2 ml BID IV FLUSH 09/06/17 21:00 09/22/17 21:06 Acetaminophen (Tylenol) 650 mg Q4H PRN PO headache, fever, pain 1-4 09/06/17 13:00 09/06/17 19:41 Ondansetron HCl (Zofran Inj) 4 mg Q6H PRN IVP NAUSEA OR VOMITING 09/06/17 13:00 09/21/17 19:40 Dronabinol (Marinol) 2.5 mg BID@11,16 PO 09/07/17 11:00 09/22/17 15:49 Lactobacillus Acidophilus (Lactinex) 1 tab TID PO 09/11/17 09:00 09/23/17 07:44 Potassium Chloride/Sodium Chloride 1,000 ml @ 42 mls/hr [id number] IV 09/14/17 15:15 09/22/17 06:57 Vancomycin HCl (VANCOMYCIN for oral use only) 500 mg Q6H PO 09/16/17 18:00 09/23/17 06:14 Metronidazole 100 ml @ 100 mls/hr Q8H IV 09/16/17 17:00 09/23/17 07:44 Sodium Chloride (NS Flush) See Protocol DAILY IV FLUSH 09/19/17 09:00 09/23/17 07:45 Heparin Sodium (Porcine) (Heparin Central Flush) See Protocol DAILY IV FLUSH 09/19/17 09:00 09/19/17 12:20 Magnesium Oxide (Mag-Ox) 400 mg DAILY PO 09/19/17 09:00 09/23/17 07:45 Diltiazem HCl (Cardizem) 30 mg Q6HR PO 09/22/17 00:00 09/23/17 06:15 Potassium Chloride (KCl) 10 meq Q12HR PO 09/22/17 21:00 09/23/17 07:45 Vancomycin HCl 1750 mg/Sodium Chloride 517.5 ml @ 250 mls/hr Q24H IV 09/22/17 13:00 09/22/17 13:59 Objective Remarks GENERAL: Cachetic aged male supine in bed in nad. SKIN: Warm and dry. HEAD: Normocephalic. EYES: No injection or drainage. NECK: Supple, trachea midline. CARDIOVASCULAR: +S1/S2 RESPIRATORY: anterior canas clear. GASTROINTESTINAL: Abdomen soft, non-tender, nondistended. EXTREMITIES: No cyanosis NEUROLOGICAL: aox3. normal speech. moving all extremities. Assessment/Plan Problem List: (1) Sepsis ICD Codes: A41.9 - Sepsis, unspecified organism Plan: --ID following --Most recent blood cultures show no growth --++ vanco, --echo on 09/12 showed vegetation (2) Pneumonia ICD Codes: J18.9 - Pneumonia, unspecified organism Plan: --on antibiotics --ID following. (3) Normocytic anemia ICD Codes: D64.9 - Anemia, unspecified Status: Acute Plan: --monitor and transfuse as needed. (4) Pulmonary emboli ICD Codes: I26.99 - Other pulmonary embolism without acute cor pulmonale Status: Chronic Plan: --on Coumadin (5) Non-Hodgkin lymphoma ICD Codes: C85.90 - Non-Hodgkin lymphoma, unspecified, unspecified site Status: Acute Plan: -- 09/21: start EPOCH (6) C. difficile colitis ICD Codes: A04.7 - Enterocolitis due to Clostridium difficile Status: Resolved Plan: --on po vancomycin (7) Atrial fibrillation with RVR ICD Codes: I48.91 - Unspecified atrial fibrillation Plan: --on PO Cardizem, rate controlled. Assessment 47y/o male with high-grade diffuse large B-cell lymphoma admitted for pneumonia and nausea/vomiting as well as anemia. History of pulmonary embolism currently on anticoagulation. Hypertension. Protein-calorie malnutrition. Plan 1. will rechallenge with Rituxan today and monitor closely 2. monitor CBC 3. monitor HR--continue Cardizem, appreciate Cardiology assistance. Attending Statement The exam, history, and the medical decision-making described in the above note were completed with the assistance of the mid-level provider. I reviewed and agree with the findings presented. I attest that I had a [id number] encounter with the patient on the same day, and personally performed and documented my assessment and findings in the medical record. No CP/SOB. Diarrhea stable. +A.fib but rate controlled. Will restart Rituxan. New chemo order done. Monitor on telemetry. Problem Qualifiers (1) Sepsis: Qualified Codes: A41.02 - Sepsis due to methicillin resistant Staphylococcus aureus (2) Non-Hodgkin lymphoma: Qualified Codes: C83.38 - Diffuse large b-cell lymphoma, lymph nodes of multiple sites Brenda Platt Sep 23, 2017 09:07 Rsulan Connelly MD Sep 23, 2017 17:50
[2017-09-23] MEDS ORDERED: POTASSIUM PHOSPHATE MONOBASIC 500 MG TAB PO ONE (09:15)
[2017-09-23] MEDS: VANCOMYCIN INJ 1,750 MG in SODIUM CHLORID 0.9% 500 ML INJ 500 ML IV SCH (12:10)
[2017-09-23] MEDS: DRONABINOL 2.5 MG CAP PO SCH ×2 (12:10→16:19)
--- NOTE | 2017-09-23 12:36 | PD.CARD.PN ---
Subjective Subjective Remarks No CP or SOB, no arrhythmias Objective Medications Current Medications Medications (Trade) Dose Ordered Sig/Shyla Route Start Time Stop Time Status Last Admin (NS Flush) 2 ml UNSCH PRN IV FLUSH 09/06/17 13:00 09/08/17 22:44 (NS Flush) 2 ml BID IV FLUSH 09/06/17 21:00 09/22/17 21:06 (Tylenol) 650 mg Q4H PRN PO 09/06/17 13:00 09/06/17 19:41 (Zofran Inj) 4 mg Q6H PRN IVP 09/06/17 13:00 09/21/17 19:40 (Reglan Inj) 5 mg Q6H PRN IV PUSH 09/06/17 13:00 (Restoril) 15 mg HS PRN PO 09/06/17 13:00 (Narcan Inj) 0.4 mg UNSCH PRN IV PUSH 09/06/17 13:00 (Milk Of Magnesia Liq) 30 ml Q12H PRN PO 09/06/17 13:00 (Senokot) 17.2 mg Q12H PRN PO 09/06/17 13:00 (Dulcolax Supp) 10 mg DAILY PRN RECTAL 09/06/17 13:00 (Lactulose Liq) 30 ml DAILY PRN PO 09/06/17 13:00 (Duoneb Neb) 1 ampule Q4HR NEB PRN NEB 09/06/17 15:00 (Marinol) 2.5 mg BID@11,16 PO 09/07/17 11:00 09/23/17 12:10 Pharmacy Profile Note 0 ml @ 0 mls/hr UNSCH OTHER 09/07/17 22:00 Pharmacy Profile Note 0 ml @ 0 mls/hr UNSCH OTHER 09/09/17 14:30 (Lactinex) 1 tab TID PO 09/11/17 09:00 09/23/17 12:10 Potassium Chloride/Sodium Chloride 1,000 ml @ 42 mls/hr [id number] IV 09/14/17 15:15 09/22/17 06:57 (VANCOMYCIN for oral use only) 500 mg Q6H PO 09/16/17 18:00 09/23/17 12:10 Metronidazole 100 ml @ 100 mls/hr Q8H IV 09/16/17 17:00 09/23/17 07:44 (NS Flush) See Protocol DAILY IV FLUSH 09/19/17 09:00 09/23/17 07:45 (NS Flush) See Protocol UNSCH PRN IV FLUSH 09/18/17 15:15 (Heparin Central Flush) See Protocol DAILY IV FLUSH 09/19/17 09:00 09/19/17 12:20 (Heparin Central Flush) See Protocol UNSCH PRN IV FLUSH 09/18/17 15:15 (NS Flush) UNSCH PRN IV FLUSH 09/18/17 15:15 (Mag-Ox) 400 mg DAILY PO 09/19/17 09:00 09/23/17 07:45 (Coumadin) 1 mg DAILY@1600 PO 09/20/17 16:00 Future Hold (Kytril Inj) 1 mg Q24H IV PUSH 09/22/17 13:30 09/26/17 13:31 Future hold Etoposide 95 mg/ Doxorubicin HCl 19 mg/Vincristine Sulfate 0.76 mg/ Sodium Chloride 515.01 ml @ 21.459 mls/hr Q24H IV-CENTRAL 09/22/17 14:00 09/26/17 13:59 Future hold Cyclophosphamide 1425 mg/Sodium Chloride 500 ml @ 571.25 mls/ hr ONCE ONCE IV 09/26/17 14:00 09/26/17 14:52 (Deltasone) 100 mg Q12H PO 09/22/17 13:30 09/27/17 13:31 Future hold (Deltasone) 10 mg Q12H PO 09/22/17 13:30 09/27/17 13:31 Future hold (Deltasone) 4 mg Q12H PO 09/22/17 13:30 09/27/17 13:31 Future hold Miscellaneous Information SPECIFIC LAB TO BE SILVANO... ONCE ONCE .XX 09/23/17 15:45 09/23/17 15:46 (Cardizem) 30 mg Q6HR PO 09/22/17 00:00 09/23/17 12:10 (KCl) 10 meq Q12HR PO 09/22/17 21:00 09/23/17 07:45 Vancomycin HCl 1750 mg/Sodium Chloride 517.5 ml @ 250 mls/hr Q24H IV 09/22/17 13:00 09/23/17 12:10 (Tylenol) 650 mg ONCE ONCE PO 09/23/17 13:30 09/23/17 13:31 (Benadryl) 50 mg ONCE ONCE PO 09/23/17 13:30 09/23/17 13:31 Rituximab 712.5 mg/Sodium Chloride 571.25 ml @ 0 mls/hr ONCE ONCE IV 09/23/17 14:00 09/23/17 14:01 Sodium Chloride 1,000 ml @ 100 mls/hr Q10H IV 09/23/17 14:00 09/23/17 23:59 Vital Signs / I&O Vital Signs Date Time Temp Pulse Resp B/P (MAP) Pulse Ox O2 Delivery O2 Flow Rate FiO2 09/23/17 12:12 98.1 79 18 166/96 (119) 97 09/23/17 07:52 Room Air 09/23/17 07:41 98.3 74 18 142/93 (109) 98 09/23/17 04:08 98.5 73 16 157/93 (114) 99 09/23/17 00:42 98.1 65 18 154/92 (112) 100 09/23/17 00:10 71 09/22/17 20:59 97.9 82 18 122/77 (92) 98 09/22/17 20:55 Room Air 09/22/17 20:44 68 09/22/17 15:51 98.1 69 18 139/82 (101) 99 I/O 09/22/17 09/22/17 09/22/17 09/23/17 09/23/17 09/23/17 07:00 15:00 23:00 07:00 15:00 23:00 Intake Total 1265 ml 158 ml 1480 ml 1235 ml Output Total 250 ml 1050 ml 1100 ml Balance 1015 ml 158 ml 430 ml 135 ml Intake Oral 1080 ml 400 ml IV Total 1265 ml 158 ml 400 ml 835 ml Output Urine Total 250 ml 1050 ml 1100 ml # Bowel Movements 1 3 2 Physical Exam GENERAL: In NAD SKIN: Warm and dry. HEAD: Normocephalic. EYES: No scleral icterus. No injection or drainage. NECK: Supple, trachea midline. No JVD or lymphadenopathy. CARDIOVASCULAR: Regular rate and rhythm without murmurs, gallops, or rubs. RESPIRATORY: Breath sounds equal bilaterally. No accessory muscle use. GASTROINTESTINAL: Abdomen soft, non-tender, nondistended. MUSCULOSKELETAL: No cyanosis, or edema. Laboratory Laboratory Tests Test 09/23/17 04:20 White Blood Count 9.8 TH/MM3 Red Blood Count 3.43 MIL/MM3 Hemoglobin 9.0 GM/DL Hematocrit 27.8 % Mean Corpuscular Volume 81.2 FL Mean Corpuscular Hemoglobin 26.1 PG Mean Corpuscular Hemoglobin Concent 32.2 % Red Cell Distribution Width 20.3 % Platelet Count 229 TH/MM3 Mean Platelet Volume 7.7 FL Neutrophils (%) (Auto) 85.4 % Lymphocytes (%) (Auto) 9.0 % Monocytes (%) (Auto) 5.2 % Eosinophils (%) (Auto) 0.3 % Basophils (%) (Auto) 0.1 % Neutrophils # (Auto) 8.4 TH/MM3 Lymphocytes # (Auto) 0.9 TH/MM3 Monocytes # (Auto) 0.5 TH/MM3 Eosinophils # (Auto) 0.0 TH/MM3 Basophils # (Auto) 0.0 TH/MM3 CBC Comment DIFF FINAL Differential Comment Prothrombin Time 26.6 SEC Prothromb Time International Ratio 2.6 RATIO Blood Urea Nitrogen 1 MG/DL Creatinine 0.69 MG/DL Random Glucose 94 MG/DL Total Protein 4.8 GM/DL Albumin 1.4 GM/DL Calcium Level 7.6 MG/DL Phosphorus Level 1.6 MG/DL Magnesium Level 1.5 MG/DL Alkaline Phosphatase 67 U/L Aspartate Amino Transf (AST/SGOT) 11 U/L Alanine Aminotransferase (ALT/SGPT) LESS THAN 6 U/L Total Bilirubin 0.2 MG/DL Sodium Level 145 MEQ/L Potassium Level 3.6 MEQ/L Chloride Level 113 MEQ/L Carbon Dioxide Level 24.4 MEQ/L Anion Gap 8 MEQ/L Estimat Glomerular Filtration Rate 148 ML/MIN Assessment and Plan Problem List: (1) Atrial fibrillation with RVR ICD Codes: I48.91 - Unspecified atrial fibrillation (2) Non-Hodgkin lymphoma ICD Codes: C85.90 - Non-Hodgkin lymphoma, unspecified, unspecified site Status: Acute (3) Debility ICD Codes: R53.81 - Other malaise Status: Acute (4) Hypertension ICD Codes: I10 - Essential (primary) hypertension (5) Anemia ICD Codes: D64.9 - Anemia, unspecified Status: Acute Assessment and Plan No recurrent arrhythmias. Continue monitoring on tele. Recommend to continue chemotherapy as planned. Will continue PO diltiazem, use IV diltiazem if there is recurrent a fib with RVR. Will continue to follow. Problem Qualifiers (1) Non-Hodgkin lymphoma: Qualified Codes: C83.38 - Diffuse large b-cell lymphoma, lymph nodes of multiple sites (2) Anemia: Qualified Codes: D64.9 - Anemia, unspecified Mayra Azul MD Sep 23, 2017 12:36
[2017-09-23] MEDS ORDERED: diphenhydrAMINE HCL 50 MG CAP PO ONE (13:30)
[2017-09-23] MEDS ORDERED: ACETAMINOPHEN 325 MG TAB PO ONE (13:30)
[2017-09-23] MEDS: NS + KCL 40 MEQ INJ 1,000 ML IV SCH ×2 (13:36→21:07)
[2017-09-23] MEDS ORDERED: SODIUM CHLORID 0.9% IV ONE (14:00)
[2017-09-23] MEDS ORDERED: RITUXIMAB IV ONE (14:00)
[2017-09-23] MEDS ORDERED: SODIUM CHLOR 0.9% 1000 ML INJ 1,000 ML IV SCH (14:00)
--- NOTE | 2017-09-23 14:20 | HHI.PR ---
Subjective Remarks Hemoglobin is slightly down at 9.0 today. Potassium level is stable today. Phosphorus and calcium are low. Patient reports diarrhea is still present. Objective Vital Signs Date Time Temp Pulse Resp B/P (MAP) Pulse Ox O2 Delivery O2 Flow Rate FiO2 09/23/17 13:30 97 09/23/17 12:12 98.1 79 18 166/96 (119) 97 09/23/17 07:52 Room Air 09/23/17 07:41 98.3 74 18 142/93 (109) 98 09/23/17 04:08 98.5 73 16 157/93 (114) 99 09/23/17 00:42 98.1 65 18 154/92 (112) 100 09/23/17 00:10 71 09/22/17 20:59 97.9 82 18 122/77 (92) 98 09/22/17 20:55 Room Air 09/22/17 20:44 68 09/22/17 15:51 98.1 69 18 139/82 (101) 99 I/O 09/22/17 09/22/17 09/22/17 09/23/17 09/23/17 09/23/17 07:00 15:00 23:00 07:00 15:00 23:00 Intake Total 1265 ml 158 ml 1480 ml 1235 ml Output Total 250 ml 1050 ml 1100 ml Balance 1015 ml 158 ml 430 ml 135 ml Intake Oral 1080 ml 400 ml IV Total 1265 ml 158 ml 400 ml 835 ml Output Urine Total 250 ml 1050 ml 1100 ml # Bowel Movements 1 3 2 Result Diagram: 09/23/17 0420 09/23/17 042 Objective Remarks GENERAL: A&Ox3 SKIN: Warm and dry. HEAD: Normocephalic. EYES: No scleral icterus. No injection or drainage. NECK: Supple, trachea midline. No JVD or lymphadenopathy. CARDIOVASCULAR: Regular rate and rhythm without murmurs, gallops, or rubs. RESPIRATORY: Breath sounds equal bilaterally. No accessory muscle use. GASTROINTESTINAL: Abdomen soft, non-tender, nondistended. MUSCULOSKELETAL: No cyanosis, or edema. BACK: Nontender without obvious deformity. No CVA tenderness. A/P Problem List: (1) Atrial fibrillation with RVR ICD Code: I48.91 - Unspecified atrial fibrillation (2) Anemia ICD Code: D64.9 - Anemia, unspecified Status: Acute Assessment and Plan Assessment and Plan 47 year old male admitted with Sepsis related to MRSA endocarditis (tricuspid valve), bilateral pneumonia, and MRSA bacteremia with underlying NH B-cell Lymphoma. (Mr. Werner is a 47-year-old male patient with a known medical history of non- Hodgkin B-cell lymphoma, HTN and history of PE who presented to the ED with complaints of generalized weakness, nausea, vomiting and cough x 1 week. Hemoglobin 6.6 on presentation to ED, 2 units PRBC have been ordered. Acutely febrile, temp 102.5. WBC 20.9.) Continue to monitor for improvement in diarrhea. Continue to monitor potassium levels. Labs reviewed. Phosphorus and calcium are low. Calcium is mildly low. Phosphorus replacement provided. Labs ordered for further monitoring of these conditions. Sepsis MRSA tricuspid valve endocarditis MRSA bacteremia bilateral pneumonia Port removed 09/10/17 Post treatment with cefepime and zithromax Vancomycin for 6 weeks (ongoing) ID following C. 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 Received Cytoxan and CHOP (cyclophosphamide, doxorubicin, vincristine and prednisone) Subsequently, also received Rituxan and EPOCH (cyclophosphamide, doxorubicin, etoposide, vincristine, prednisone) Last chemotherapy was 2 weeks prior to this admission. Continue management per Heme/Onc Microcytic Hypochromic Anemia Follow CBC Presently Hgb is stable Follow H&H Severe protein calorie malnutrition due to the colitis, chronically ill, poor appetite Continue ensure with diet. Hypokalemia From GI loss. Monitor potassium levels Replace as needed Hypomagnesemia Replace magnesium as needed. Monitor levels Hypertension chronic No need for treatments currently History of PE Coumadin Follow INR Follow clinically DVT Prophylaxis SCDs Coumadin Problem Qualifiers (1) Anemia: Qualified Codes: D64.9 - Anemia, unspecified Adama Medina MD Sep 23, 2017 14:20
[2017-09-23] MEDS ORDERED: PHARMACY ORDERED LAB ONE (15:45)
[2017-09-24] VITALS (9 sets, daily range): BP systolic 150–169; BP diastolic 79–95; PULSE 64–77; RESP 16–20; TEMP 98.1–98.7; O2SAT 96–100
[2017-09-24] MEDS: VANCOMYCIN 500 MG VIAL (FOR ORAL USE ONLY) PO SCH ×4 (00:07→19:00)
[2017-09-24] MEDS: DILTIAZEM HCL 30 MG TAB PO SCH ×4 (05:15→19:00)
[2017-09-24 05:52] LABS: INTERNATIONAL NORMALIZED RATIO 2.5 RATIO; PROTHROMBIN TIME - PATIENT 24.9 SEC (9.8-11.6)
[2017-09-24 05:56] LABS: BASOPHIL % 0.3 % (0.0-2.0); EOSINOPHIL % 0.3 % (0.0-4.0); HEMOGLOBIN 9.6 GM/DL (13.0-17.0); LYMPH % 7.2 % (9.0-44.0); LYMPHOCYTE # 0.7 TH/MM3 (1.0-4.8); MEAN CELL VOLUME 81.8 FL (80.0-100.0); MEAN CORPUSCULAR HEMOGLOBIN 26.2 PG (27.0-34.0); MEAN CORPUSCULAR HGB CONC 32.1 % (32.0-36.0); MEAN PLATELET VOLUME 7.9 FL (7.0-11.0); MONO % 4.9 % (0.0-8.0); MONOCYTE # 0.4 TH/MM3 (0-0.9); NEUT % 87.3 % (16.0-70.0); PLATELET COUNT 233 TH/MM3 (150-450); RED BLOOD COUNT 3.67 MIL/MM3 (4.50-5.90); RED CELL DISTRIBUTION WIDTH 20.2 % (11.6-17.2); WHITE BLOOD COUNT 9.1 TH/MM3 (4.0-11.0)
[2017-09-24 06:08] LABS: ALBUMIN 1.5 GM/DL (3.4-5.0); ALKALINE PHOSPHATASE 68 U/L (45-117); ALT (GPT) LESS THAN 6 U/L (12-78); AST (GOT) 10 U/L (15-37); BICARBONATE 23.2 MEQ/L (21.0-32.0); BLOOD UREA NITROGEN LESS THAN 1 MG/DL (7-18); CALCIUM 7.4 MG/DL (8.5-10.1); CALCIUM-PROTEIN CORRECTED 8.6 MG/DL (8.5-10.1); CHLORIDE 115 MEQ/L (98-107); CREATININE 0.67 MG/DL (0.60-1.30); GLOMERULAR FILTRATION RATE 153 ML/MIN (>89); GLUCOSE,RANDOM 95 MG/DL (74-106); MAGNESIUM 1.4 MG/DL (1.5-2.5); PHOSPHORUS 2.5 MG/DL (2.5-4.9); SODIUM (NA) 145 MEQ/L (136-145); TOTAL BILIRUBIN ADULT 0.2 MG/DL (0.2-1.0)
[2017-09-24] MEDS ORDERED: POTASSIUM CHLOR 20 MEQ PREMIX 100 ML IV ONE (08:45)
[2017-09-24] MEDS: SODIUM CHLORIDE 0.9% FLUSH 10 ML FLUSH IV FLUSH SCH ×3 (09:00→21:42)
--- NOTE | 2017-09-24 10:10 | PD.ONC.PN ---
Subjective Subjective Remarks Afebrile overnight. Patient resting in bed. Tolerated the Rituxan yesterday without reaction. Starting EPOCH today. Objective Data Date Time Temp Pulse Resp B/P (MAP) Pulse Ox O2 Delivery O2 Flow Rate FiO2 09/24/17 05:17 98.5 70 16 160/95 (116) 96 09/24/17 00:05 98.1 67 16 169/84 (112) 99 09/23/17 21:01 70 131/85 (100) 09/23/17 20:30 Room Air 09/23/17 20:30 71 09/23/17 20:04 98.1 69 16 128/74 (92) 96 09/23/17 18:10 72 20 155/75 (101) 98 09/23/17 17:17 76 156/78 (104) 97 09/23/17 16:13 68 24 140/85 (103) 99 09/23/17 15:41 72 25 145/88 (107) 98 09/23/17 15:31 74 18 146/98 (114) 94 09/23/17 15:18 97.6 70 18 135/86 (102) 98 09/23/17 13:30 97 09/23/17 12:12 98.1 79 18 166/96 (119) 97 09/24/17 09/24/17 09/24/17 07:00 15:00 23:00 Intake Total 545 ml Output Total 1950 ml Balance -1405 ml Result Diagram: 09/24/17 0510 09/24/17 0510 Laboratory Results Laboratory Tests Test 09/24/17 05:10 White Blood Count 9.1 TH/MM3 Red Blood Count 3.67 MIL/MM3 Hemoglobin 9.6 GM/DL Hematocrit 30.0 % Mean Corpuscular Volume 81.8 FL Mean Corpuscular Hemoglobin 26.2 PG Mean Corpuscular Hemoglobin Concent 32.1 % Red Cell Distribution Width 20.2 % Platelet Count 233 TH/MM3 Mean Platelet Volume 7.9 FL Neutrophils (%) (Auto) 87.3 % Lymphocytes (%) (Auto) 7.2 % Monocytes (%) (Auto) 4.9 % Eosinophils (%) (Auto) 0.3 % Basophils (%) (Auto) 0.3 % Neutrophils # (Auto) 8.0 TH/MM3 Lymphocytes # (Auto) 0.7 TH/MM3 Monocytes # (Auto) 0.4 TH/MM3 Eosinophils # (Auto) 0.0 TH/MM3 Basophils # (Auto) 0.0 TH/MM3 CBC Comment DIFF FINAL Differential Comment Prothrombin Time 24.9 SEC Prothromb Time International Ratio 2.5 RATIO Blood Urea Nitrogen LESS THAN 1 MG/DL Creatinine 0.67 MG/DL Random Glucose 95 MG/DL Total Protein 5.0 GM/DL Albumin 1.5 GM/DL Calcium Level 7.4 MG/DL Phosphorus Level 2.5 MG/DL Magnesium Level 1.4 MG/DL Alkaline Phosphatase 68 U/L Aspartate Amino Transf (AST/SGOT) 10 U/L Alanine Aminotransferase (ALT/SGPT) LESS THAN 6 U/L Total Bilirubin 0.2 MG/DL Sodium Level 145 MEQ/L Potassium Level 3.3 MEQ/L Chloride Level 115 MEQ/L Carbon Dioxide Level 23.2 MEQ/L Anion Gap 7 MEQ/L Estimat Glomerular Filtration Rate 153 ML/MIN Protein Corrected Calcium 8.6 MG/DL Administered Medications Medications (Trade) Dose Ordered Sig/Shyla Route PRN Reason Start Time Stop Time Status Last Admin Dose Admin Sodium Chloride (NS Flush) 2 ml UNSCH PRN IV FLUSH FLUSH AFTER USING IV ACCESS 09/06/17 13:00 09/08/17 22:44 Sodium Chloride (NS Flush) 2 ml BID IV FLUSH 09/06/17 21:00 09/22/17 21:06 Acetaminophen (Tylenol) 650 mg Q4H PRN PO headache, fever, pain 1-4 09/06/17 13:00 09/06/17 19:41 Ondansetron HCl (Zofran Inj) 4 mg Q6H PRN IVP NAUSEA OR VOMITING 09/06/17 13:00 09/21/17 19:40 Dronabinol (Marinol) 2.5 mg BID@11,16 PO 09/07/17 11:00 09/23/17 16:19 Lactobacillus Acidophilus (Lactinex) 1 tab TID PO 09/11/17 09:00 09/23/17 17:20 Potassium Chloride/Sodium Chloride 1,000 ml @ 42 mls/hr [id number] IV 09/14/17 15:15 09/23/17 21:07 Vancomycin HCl (VANCOMYCIN for oral use only) 500 mg Q6H PO 09/16/17 18:00 09/24/17 05:15 Metronidazole 100 ml @ 100 mls/hr Q8H IV 09/16/17 17:00 09/23/17 21:07 Sodium Chloride (NS Flush) See Protocol DAILY IV FLUSH 09/19/17 09:00 09/23/17 07:45 Heparin Sodium (Porcine) (Heparin Central Flush) See Protocol DAILY IV FLUSH 09/19/17 09:00 09/19/17 12:20 Magnesium Oxide (Mag-Ox) 400 mg DAILY PO 09/19/17 09:00 09/23/17 07:45 Diltiazem HCl (Cardizem) 30 mg Q6HR PO 09/22/17 00:00 09/24/17 05:15 Potassium Chloride (KCl) 10 meq Q12HR PO 09/22/17 21:00 09/23/17 20:08 Vancomycin HCl 1750 mg/Sodium Chloride 517.5 ml @ 250 mls/hr Q24H IV 09/22/17 13:00 09/23/17 12:10 Objective Remarks GENERAL: Cachetic aged male lying in bed resting. SKIN: Warm and dry. HEAD: Normocephalic. EYES: No injection or drainage. NECK: Supple, trachea midline. CARDIOVASCULAR: +S1/S2 RESPIRATORY: anterior canas clear. GASTROINTESTINAL: Abdomen soft, non-tender, nondistended. EXTREMITIES: No cyanosis NEUROLOGICAL: awake and alert, normal speech. moving all extremities. Assessment/Plan Problem List: (1) Sepsis ICD Codes: A41.9 - Sepsis, unspecified organism Plan: --ID following --Most recent blood cultures show no growth --++ vanco, --echo on 09/12 showed vegetation (2) Pneumonia ICD Codes: J18.9 - Pneumonia, unspecified organism Plan: --on antibiotics --ID following. (3) Normocytic anemia ICD Codes: D64.9 - Anemia, unspecified Status: Acute Plan: --monitor and transfuse as needed. (4) Pulmonary emboli ICD Codes: I26.99 - Other pulmonary embolism without acute cor pulmonale Status: Chronic Plan: --on Coumadin (5) Non-Hodgkin lymphoma ICD Codes: C85.90 - Non-Hodgkin lymphoma, unspecified, unspecified site Status: Acute Plan: --09/21: Rituxan started and then stopped as patient developed a.fib w/ RVR --09/22: cardiology consulted and cleared to resume chemotherapy --09/23: Rituxan rechallenged successfully --09/24: EPOCH D1 (6) C. difficile colitis ICD Codes: A04.7 - Enterocolitis due to Clostridium difficile Status: Resolved Plan: --on po vancomycin (7) Atrial fibrillation with RVR ICD Codes: I48.91 - Unspecified atrial fibrillation Plan: --on PO Cardizem, rate controlled. Assessment 47y/o male with high-grade diffuse large B-cell lymphoma admitted for pneumonia and nausea/vomiting as well as anemia. History of pulmonary embolism currently on anticoagulation. Hypertension. Protein-calorie malnutrition. Plan 1. start EPOCH D1 today 2. continue coumadin 3. encourage OOB to chair 4. monitor CBC Attending Statement The exam, history, and the medical decision-making described in the above note were completed with the assistance of the mid-level provider. I reviewed and agree with the findings presented. I attest that I had a [id number] encounter with the patient on the same day, and personally performed and documented my assessment and findings in the medical record. Tolerated Rituxan. A.fib rate controlled. Diarrhea stable. Start EPOCH today. Monitor closely for toxicities. Problem Qualifiers (1) Sepsis: Qualified Codes: A41.02 - Sepsis due to methicillin resistant Staphylococcus aureus (2) Non-Hodgkin lymphoma: Qualified Codes: C83.38 - Diffuse large b-cell lymphoma, lymph nodes of multiple sites Brenda Platt Sep 24, 2017 10:10 Ruslan Connelly MD Sep 24, 2017 17:23
[2017-09-24] MEDS: metroNIDAZOLE 500 MG INJ 100 ML IV SCH ×2 (10:15→19:02)
[2017-09-24] MEDS: MAGNESIUM OXIDE 400 MG TAB PO SCH (10:17)
[2017-09-24] MEDS: LACTOBACILLUS ACIDOPHILUS TAB PO SCH ×3 (10:17→19:00)
[2017-09-24] MEDS: POTASSIUM CHLORIDE 10 MEQ CONTROLLED RELEASE TAB PO SCH ×2 (10:17→21:42)
[2017-09-24] MEDS: DRONABINOL 2.5 MG CAP PO SCH ×2 (11:00→17:26)
--- NOTE | 2017-09-24 13:06 | PD.CARD.PN ---
Subjective Subjective Remarks No CP or SOB, no arrhythmias after rechallenged with chemo Objective Medications Current Medications Medications (Trade) Dose Ordered Sig/Shyla Route Start Time Stop Time Status Last Admin (NS Flush) 2 ml UNSCH PRN IV FLUSH 09/06/17 13:00 09/08/17 22:44 (NS Flush) 2 ml BID IV FLUSH 09/06/17 21:00 09/22/17 21:06 (Tylenol) 650 mg Q4H PRN PO 09/06/17 13:00 09/06/17 19:41 (Zofran Inj) 4 mg Q6H PRN IVP 09/06/17 13:00 09/21/17 19:40 (Reglan Inj) 5 mg Q6H PRN IV PUSH 09/06/17 13:00 (Restoril) 15 mg HS PRN PO 09/06/17 13:00 (Narcan Inj) 0.4 mg UNSCH PRN IV PUSH 09/06/17 13:00 (Milk Of Magnesia Liq) 30 ml Q12H PRN PO 09/06/17 13:00 (Senokot) 17.2 mg Q12H PRN PO 09/06/17 13:00 (Dulcolax Supp) 10 mg DAILY PRN RECTAL 09/06/17 13:00 (Lactulose Liq) 30 ml DAILY PRN PO 09/06/17 13:00 (Duoneb Neb) 1 ampule Q4HR NEB PRN NEB 09/06/17 15:00 (Marinol) 2.5 mg BID@11,16 PO 09/07/17 11:00 09/23/17 16:19 Pharmacy Profile Note 0 ml @ 0 mls/hr UNSCH OTHER 09/07/17 22:00 Pharmacy Profile Note 0 ml @ 0 mls/hr UNSCH OTHER 09/09/17 14:30 (Lactinex) 1 tab TID PO 09/11/17 09:00 09/24/17 10:17 Potassium Chloride/Sodium Chloride 1,000 ml @ 42 mls/hr [id number] IV 09/14/17 15:15 09/23/17 21:07 (VANCOMYCIN for oral use only) 500 mg Q6H PO 09/16/17 18:00 09/24/17 10:18 Metronidazole 100 ml @ 100 mls/hr Q8H IV 09/16/17 17:00 09/24/17 10:15 (NS Flush) See Protocol DAILY IV FLUSH 09/19/17 09:00 09/23/17 07:45 (NS Flush) See Protocol UNSCH PRN IV FLUSH 09/18/17 15:15 (Heparin Central Flush) See Protocol DAILY IV FLUSH 09/19/17 09:00 09/19/17 12:20 (Heparin Central Flush) See Protocol UNSCH PRN IV FLUSH 09/18/17 15:15 (NS Flush) UNSCH PRN IV FLUSH 09/18/17 15:15 (Mag-Ox) 400 mg DAILY PO 09/19/17 09:00 09/24/17 10:17 (Coumadin) 1 mg DAILY@1600 PO 09/20/17 16:00 Future Hold (Cardizem) 30 mg Q6HR PO 09/22/17 00:00 09/24/17 10:28 (KCl) 10 meq Q12HR PO 09/22/17 21:00 09/24/17 10:17 Vancomycin HCl 1750 mg/Sodium Chloride 517.5 ml @ 250 mls/hr Q24H IV 09/22/17 13:00 09/23/17 12:10 Etoposide 95 mg/ Doxorubicin HCl 19 mg/Vincristine Sulfate 0.76 mg/ Sodium Chloride 515.01 ml @ 21.459 mls/hr Q24H IV-CENTRAL 09/24/17 14:00 09/28/17 13:59 Cyclophosphamide 1425 mg/Sodium Chloride 500 ml @ 500 mls/hr ONCE ONCE IV 09/28/17 14:00 09/28/17 14:59 (Kytril Inj) 1 mg Q24H IV PUSH 09/24/17 13:30 09/28/17 13:31 (Deltasone) 100 mg Q12HR PO 09/24/17 11:00 09/28/17 21:01 (Deltasone) 10 mg Q12HR PO 09/24/17 11:00 09/28/17 21:01 (Deltasone) 4 mg Q12HR PO 09/24/17 11:00 09/28/17 21:01 Miscellaneous Information SPECIFIC LAB TO BE DRAWN:VANCOMYCIN TROUGH DATE TO... ONCE ONCE .XX 09/25/17 12:45 09/25/17 12:46 Vital Signs / I&O Vital Signs Date Time Temp Pulse Resp B/P (MAP) Pulse Ox O2 Delivery O2 Flow Rate FiO2 09/24/17 12:02 98.4 64 20 150/88 (108) 99 09/24/17 10:13 98.7 67 20 160/86 (110) 98 09/24/17 05:17 98.5 70 16 160/95 (116) 96 09/24/17 00:05 98.1 67 16 169/84 (112) 99 09/23/17 21:01 70 131/85 (100) 09/23/17 20:30 Room Air 09/23/17 20:30 71 09/23/17 20:04 98.1 69 16 128/74 (92) 96 09/23/17 18:10 72 20 155/75 (101) 98 09/23/17 17:17 76 156/78 (104) 97 09/23/17 16:13 68 24 140/85 (103) 99 09/23/17 15:41 72 25 145/88 (107) 98 09/23/17 15:31 74 18 146/98 (114) 94 09/23/17 15:18 97.6 70 18 135/86 (102) 98 09/23/17 13:30 97 I/O 09/23/17 09/23/17 09/23/17 09/24/17 09/24/17 09/24/17 07:00 15:00 23:00 07:00 15:00 23:00 Intake Total 1235 ml 2621 ml 545 ml Output Total 1100 ml 2600 ml 1950 ml Balance 135 ml 21 ml -1405 ml Intake Oral 400 ml 1200 ml 200 ml IV Total 835 ml 1421 ml 345 ml Output Urine Total 1100 ml 2600 ml 1950 ml # Bowel Movements 2 3 3 Physical Exam GENERAL: In NAD SKIN: Warm and dry. HEAD: Normocephalic. EYES: No scleral icterus. No injection or drainage. NECK: Supple, trachea midline. No JVD or lymphadenopathy. CARDIOVASCULAR: Regular rate and rhythm without murmurs, gallops, or rubs. RESPIRATORY: Breath sounds equal bilaterally. No accessory muscle use. GASTROINTESTINAL: Abdomen soft, non-tender, nondistended. MUSCULOSKELETAL: No cyanosis, or edema. Laboratory Laboratory Tests Test 09/24/17 05:10 White Blood Count 9.1 TH/MM3 Red Blood Count 3.67 MIL/MM3 Hemoglobin 9.6 GM/DL Hematocrit 30.0 % Mean Corpuscular Volume 81.8 FL Mean Corpuscular Hemoglobin 26.2 PG Mean Corpuscular Hemoglobin Concent 32.1 % Red Cell Distribution Width 20.2 % Platelet Count 233 TH/MM3 Mean Platelet Volume 7.9 FL Neutrophils (%) (Auto) 87.3 % Lymphocytes (%) (Auto) 7.2 % Monocytes (%) (Auto) 4.9 % Eosinophils (%) (Auto) 0.3 % Basophils (%) (Auto) 0.3 % Neutrophils # (Auto) 8.0 TH/MM3 Lymphocytes # (Auto) 0.7 TH/MM3 Monocytes # (Auto) 0.4 TH/MM3 Eosinophils # (Auto) 0.0 TH/MM3 Basophils # (Auto) 0.0 TH/MM3 CBC Comment DIFF FINAL Differential Comment Prothrombin Time 24.9 SEC Prothromb Time International Ratio 2.5 RATIO Blood Urea Nitrogen LESS THAN 1 MG/DL Creatinine 0.67 MG/DL Random Glucose 95 MG/DL Total Protein 5.0 GM/DL Albumin 1.5 GM/DL Calcium Level 7.4 MG/DL Phosphorus Level 2.5 MG/DL Magnesium Level 1.4 MG/DL Alkaline Phosphatase 68 U/L Aspartate Amino Transf (AST/SGOT) 10 U/L Alanine Aminotransferase (ALT/SGPT) LESS THAN 6 U/L Total Bilirubin 0.2 MG/DL Sodium Level 145 MEQ/L Potassium Level 3.3 MEQ/L Chloride Level 115 MEQ/L Carbon Dioxide Level 23.2 MEQ/L Anion Gap 7 MEQ/L Estimat Glomerular Filtration Rate 153 ML/MIN Protein Corrected Calcium 8.6 MG/DL Assessment and Plan Problem List: (1) Atrial fibrillation with RVR ICD Codes: I48.91 - Unspecified atrial fibrillation (2) Non-Hodgkin lymphoma ICD Codes: C85.90 - Non-Hodgkin lymphoma, unspecified, unspecified site Status: Acute (3) Debility ICD Codes: R53.81 - Other malaise Status: Acute (4) Hypertension ICD Codes: I10 - Essential (primary) hypertension (5) Anemia ICD Codes: D64.9 - Anemia, unspecified Status: Acute Assessment and Plan No recurrent arrhythmias after pt rechallenged with chemo. Continue current program. Continue monitoring on tele. Will continue PO diltiazem, use IV diltiazem if there is recurrent a fib with RVR. Will continue to follow. Problem Qualifiers (1) Non-Hodgkin lymphoma: Qualified Codes: C83.38 - Diffuse large b-cell lymphoma, lymph nodes of multiple sites (2) Anemia: Qualified Codes: D64.9 - Anemia, unspecified Mayra Azul MD Sep 24, 2017 13:05
[2017-09-24] MEDS: predniSONE 50 MG TAB PO SCH ×2 (15:45→21:41)
[2017-09-24] MEDS: predniSONE 1 MG TAB PO SCH ×2 (15:45→21:41)
[2017-09-24] MEDS: GRANISETRON HCL 1 MG/ML VIAL IV PUSH SCH (15:45)
[2017-09-24] MEDS: predniSONE 10 MG TAB PO SCH ×2 (15:47→21:41)
[2017-09-24] MEDS: VANCOMYCIN INJ 1,750 MG in SODIUM CHLORID 0.9% 500 ML INJ 500 ML IV SCH (15:48)
[2017-09-24] MEDS: WARFARIN SOD 1 MG TAB PO SCH (17:26)
--- NOTE | 2017-09-24 17:38 | HHI.PR ---
Subjective Remarks Patient states that he feels his bowel movements are getting less frequent and forming more. He denies pain. States he's had a cough but it is improving. Denies shortness of breath. He states he has not been working much with physical therapy. Objective Vitals Vital Signs Date Time Temp Pulse Resp B/P (MAP) Pulse Ox O2 Delivery O2 Flow Rate FiO2 09/24/17 13:45 99 09/24/17 13:23 68 09/24/17 13:23 Room Air 09/24/17 12:02 98.4 64 20 150/88 (108) 99 09/24/17 10:13 98.7 67 20 160/86 (110) 98 09/24/17 05:17 98.5 70 16 160/95 (116) 96 09/24/17 00:05 98.1 67 16 169/84 (112) 99 09/23/17 21:01 70 131/85 (100) 09/23/17 20:30 Room Air 09/23/17 20:30 71 09/23/17 20:04 98.1 69 16 128/74 (92) 96 09/23/17 18:10 72 20 155/75 (101) 98 I/O 09/23/17 09/23/17 09/23/17 09/24/17 09/24/17 09/24/17 07:00 15:00 23:00 07:00 15:00 23:00 Intake Total 1235 ml 2621 ml 545 ml Output Total 1100 ml 2600 ml 1950 ml 600 ml Balance 135 ml 21 ml -1405 ml -600 ml Intake Oral 400 ml 1200 ml 200 ml IV Total 835 ml 1421 ml 345 ml Output Urine Total 1100 ml 2600 ml 1950 ml 600 ml # Bowel Movements 2 3 3 Result Diagram: 09/24/17 0510 09/24/17 0510 Objective Remarks GENERAL: Cachectic chronically ill appearing -[place]wegian Norwegian male patient. SKIN: Warm and dry. HEAD: Normocephalic. EYES: No scleral icterus. No injection or drainage. NECK: Supple, trachea midline. No JVD or lymphadenopathy. CARDIOVASCULAR: Regular rate and rhythm without murmurs, gallops, or rubs. RESPIRATORY: Breath sounds equal bilaterally. No accessory muscle use. GASTROINTESTINAL: Abdomen soft, non-tender, nondistended. EXTREMITIES: No pedal edema. NEUROLOGICAL: Awake, alert, and oriented x 3. Non-focal. Procedures None. 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 difficile colitis ICD Code: A04.7 - Enterocolitis due to Clostridium difficile Status: Resolved (7) Sepsis ICD Code: A41.9 - Sepsis, unspecified organism (8) Debility ICD Code: R53.81 - Other malaise Status: Acute (9) Atrial fibrillation with RVR ICD Code: I48.91 - Unspecified atrial fibrillation (10) Sepsis due to methicillin resistant Staphylococcus aureus (MRSA) ICD Code: A41.02 - Sepsis due to Methicillin resistant Staphylococcus aureus Assessment and Plan Mr. Werner is a 47-year-old male patient with a known medical history of non- Hodgkin B-cell lymphoma, HTN and history of PE who presented to the ED with complaints of generalized weakness, nausea, vomiting and cough x 1 week. Hemoglobin 6.6 on presentation to ED, 2 units PRBC have been ordered. Acutely febrile, temp 102.5. WBC 20.9. Sepsis, MRSA tricuspid valve endocarditis, MRSA bacteremia, bilateral pneumonia - - s/p Port removal 09/10. -Status post cefepime and Zithromax course -2-D echocardiogram with tricuspid valve vegetation - ID is following-Vancomycin for 6 weeks through October 26 -C. difficile colitis On by mouth vancomycin per ID - until roughly Sep 26. Lactinex. Still has significant loose stools. Diffuse large B-cell lymphoma with triple hit -Receiving rituxan per hematology, starting on EPOCH today Atrial fibrillation with rapid ventricular rate, resolved back in normal sinus rhythm. Appreciate cardiology input with Dr. devine. Continue by mouth Cardizem. Microcytic hypochromic anemia: Hemoglobin 6.6/Hematocrit 19.6 on presentation. Hemoccult negative. s/p 2 units PRBC -Hb improved to 10-11 - monitor H&H Severe protein calorie malnutrition due to the colitis, chronically ill, poor appetite - cont ensure to diet. Persistent, severe hypokalemia: Due to GI loss. Potassium 3.3 today. We'll give potassium 20 mEq IV. Hypertension, chronic: BP 100/66 currently. No need for any antihypertensives. 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 cont Warfarin - monitor INR. pharmacy following for coumadin management Debilitation -Continue PT which patient is not very compliant with. Patient encouraged to work with PT. DVT Prophylaxis: SCDs. on coumadin Discharge Planning Sniff versus home Problem Qualifiers (1) Non-Hodgkin lymphoma: Qualified Codes: C83.38 - Diffuse large b-cell lymphoma, lymph nodes of multiple sites (2) Anemia: Qualified Codes: D64.9 - Anemia, unspecified (3) Sepsis: Qualified Codes: A41.02 - Sepsis due to methicillin resistant Staphylococcus aureus Arminda Diehl MD Sep 24, 2017 17:38
[2017-09-24] MEDS: ETOPOSIDE IV-CENTRAL SCH (17:41)
[2017-09-24] MEDS: VINCRISTINE IV-CENTRAL SCH (17:41)
[2017-09-24] MEDS: DOXORUBICIN IV-CENTRAL SCH (17:41)
[2017-09-24] MEDS: [UNRECOGNIZED DRUG - OTHER] IV-CENTRAL SCH (17:41)
[2017-09-25] VITALS (9 sets, daily range): BP systolic 126–160; BP diastolic 86–104; PULSE 54–77; RESP 16–17; TEMP 97.7–98.3; O2SAT 98–100
[2017-09-25] MEDS: VANCOMYCIN 500 MG VIAL (FOR ORAL USE ONLY) PO SCH ×4 (00:09→17:44)
[2017-09-25] MEDS: metroNIDAZOLE 500 MG INJ 100 ML IV SCH ×3 (00:09→17:45)
[2017-09-25] MEDS: DILTIAZEM HCL 30 MG TAB PO SCH ×4 (00:09→17:44)
[2017-09-25 06:02] LABS: AUTOMATED NEUTROPHIL # 2.3 TH/MM3 (1.8-7.7); BASOPHIL % 0.1 % (0.0-2.0); HEMATOCRIT 29.8 % (39.0-51.0); HEMOGLOBIN 9.7 GM/DL (13.0-17.0); LYMPH % 11.5 % (9.0-44.0); LYMPHOCYTE # 0.3 TH/MM3 (1.0-4.8); MEAN CELL VOLUME 80.5 FL (80.0-100.0); MEAN CORPUSCULAR HEMOGLOBIN 26.3 PG (27.0-34.0); MEAN CORPUSCULAR HGB CONC 32.6 % (32.0-36.0); MEAN PLATELET VOLUME 8.3 FL (7.0-11.0); MONO % 0.9 % (0.0-8.0); NEUT % 87.5 % (16.0-70.0); PLATELET COUNT 233 TH/MM3 (150-450); RED CELL DISTRIBUTION WIDTH 19.7 % (11.6-17.2); WHITE BLOOD COUNT 2.7 TH/MM3 (4.0-11.0)
[2017-09-25 06:12] LABS: INTERNATIONAL NORMALIZED RATIO 2.6 RATIO; PROTHROMBIN TIME - PATIENT 26.2 SEC (9.8-11.6)
[2017-09-25 06:29] LABS: BICARBONATE 24.2 MEQ/L (21.0-32.0); BLOOD UREA NITROGEN LESS THAN 1 MG/DL (7-18); CALCIUM 7.7 MG/DL (8.5-10.1); CHLORIDE 109 MEQ/L (98-107); CREATININE 0.73 MG/DL (0.60-1.30); GLOMERULAR FILTRATION RATE 138 ML/MIN (>89); GLUCOSE,RANDOM 136 MG/DL (74-106); SODIUM (NA) 142 MEQ/L (136-145)
[2017-09-25] MEDS: SODIUM CHLORIDE 0.9% FLUSH 10 ML FLUSH IV FLUSH SCH ×3 (09:00→21:44)
[2017-09-25] MEDS: MAGNESIUM OXIDE 400 MG TAB PO SCH (09:50)
[2017-09-25] MEDS: predniSONE 1 MG TAB PO SCH ×2 (09:50→21:43)
[2017-09-25] MEDS: predniSONE 10 MG TAB PO SCH ×2 (09:51→21:43)
[2017-09-25] MEDS: LACTOBACILLUS ACIDOPHILUS TAB PO SCH ×3 (09:51→17:44)
[2017-09-25] MEDS: predniSONE 50 MG TAB PO SCH ×2 (09:51→21:43)
[2017-09-25] MEDS: POTASSIUM CHLORIDE 10 MEQ CONTROLLED RELEASE TAB PO SCH ×2 (09:51→21:43)
--- NOTE | 2017-09-25 11:42 | PD.CARD.PN ---
Subjective Subjective Remarks No CP or SOB, no recurrent AF Objective Medications Current Medications Medications (Trade) Dose Ordered Sig/Shyla Route Start Time Stop Time Status Last Admin (NS Flush) 2 ml UNSCH PRN IV FLUSH 09/06/17 13:00 09/08/17 22:44 (NS Flush) 2 ml BID IV FLUSH 09/06/17 21:00 09/25/17 09:51 (Tylenol) 650 mg Q4H PRN PO 09/06/17 13:00 09/06/17 19:41 (Zofran Inj) 4 mg Q6H PRN IVP 09/06/17 13:00 09/21/17 19:40 (Reglan Inj) 5 mg Q6H PRN IV PUSH 09/06/17 13:00 (Restoril) 15 mg HS PRN PO 09/06/17 13:00 (Narcan Inj) 0.4 mg UNSCH PRN IV PUSH 09/06/17 13:00 (Milk Of Magnesia Liq) 30 ml Q12H PRN PO 09/06/17 13:00 (Senokot) 17.2 mg Q12H PRN PO 09/06/17 13:00 (Dulcolax Supp) 10 mg DAILY PRN RECTAL 09/06/17 13:00 (Lactulose Liq) 30 ml DAILY PRN PO 09/06/17 13:00 (Duoneb Neb) 1 ampule Q4HR NEB PRN NEB 09/06/17 15:00 (Marinol) 2.5 mg BID@11,16 PO 09/07/17 11:00 09/24/17 17:26 Pharmacy Profile Note 0 ml @ 0 mls/hr UNSCH OTHER 09/07/17 22:00 Pharmacy Profile Note 0 ml @ 0 mls/hr UNSCH OTHER 09/09/17 14:30 (Lactinex) 1 tab TID PO 09/11/17 09:00 09/25/17 09:51 Potassium Chloride/Sodium Chloride 1,000 ml @ 42 mls/hr [id number] IV 09/14/17 15:15 09/23/17 21:07 (VANCOMYCIN for oral use only) 500 mg Q6H PO 09/16/17 18:00 09/25/17 06:00 Metronidazole 100 ml @ 100 mls/hr Q8H IV 09/16/17 17:00 09/25/17 09:52 (NS Flush) See Protocol DAILY IV FLUSH 09/19/17 09:00 09/23/17 07:45 (NS Flush) See Protocol UNSCH PRN IV FLUSH 09/18/17 15:15 (Heparin Central Flush) See Protocol DAILY IV FLUSH 09/19/17 09:00 09/19/17 12:20 (Heparin Central Flush) See Protocol UNSCH PRN IV FLUSH 09/18/17 15:15 (NS Flush) UNSCH PRN IV FLUSH 09/18/17 15:15 (Mag-Ox) 400 mg DAILY PO 09/19/17 09:00 09/25/17 09:50 (Coumadin) 1 mg DAILY@1600 PO 09/20/17 16:00 Future hold 09/24/17 17:26 (Cardizem) 30 mg Q6HR PO 09/22/17 00:00 09/25/17 06:00 (KCl) 10 meq Q12HR PO 09/22/17 21:00 09/25/17 09:51 Vancomycin HCl 1750 mg/Sodium Chloride 517.5 ml @ 250 mls/hr Q24H IV 09/22/17 13:00 09/24/17 15:48 Etoposide 95 mg/ Doxorubicin HCl 19 mg/Vincristine Sulfate 0.76 mg/ Sodium Chloride 515.01 ml @ 21.459 mls/hr Q24H IV-CENTRAL 09/24/17 14:00 09/28/17 13:59 09/24/17 17:41 Cyclophosphamide 1425 mg/Sodium Chloride 500 ml @ 500 mls/hr ONCE ONCE IV 09/28/17 14:00 09/28/17 14:59 (Kytril Inj) 1 mg Q24H IV PUSH 09/24/17 13:30 09/28/17 13:31 09/24/17 15:45 (Deltasone) 100 mg Q12HR PO 09/24/17 11:00 09/28/17 21:01 09/25/17 09:51 (Deltasone) 10 mg Q12HR PO 09/24/17 11:00 09/28/17 21:01 09/25/17 09:51 (Deltasone) 4 mg Q12HR PO 09/24/17 11:00 09/28/17 21:01 09/25/17 09:50 Miscellaneous Information SPECIFIC LAB TO BE DRAWN:VANCOMYCIN TROUGH DATE TO... ONCE ONCE .XX 09/25/17 12:45 09/25/17 12:46 Vital Signs / I&O Vital Signs Date Time Temp Pulse Resp B/P (MAP) Pulse Ox O2 Delivery O2 Flow Rate FiO2 09/25/17 09:45 98.0 54 16 144/91 (108) 99 09/25/17 04:32 98.0 77 16 147/104 (118) 100 09/25/17 00:15 97.9 62 17 160/90 (113) 99 09/24/17 22:00 77 09/24/17 21:39 98.1 73 18 150/79 (102) 97 09/24/17 21:30 Room Air 09/24/17 20:16 21 09/24/17 17:27 98.3 77 16 162/95 (117) 100 09/24/17 13:45 99 09/24/17 13:23 68 09/24/17 13:23 Room Air 09/24/17 12:02 98.4 64 20 150/88 (108) 99 I/O 09/24/17 09/24/17 09/24/17 09/25/17 09/25/17 09/25/17 07:00 15:00 23:00 07:00 15:00 23:00 Intake Total 545 ml 840 ml 600 ml Output Total 1950 ml 1000 ml Balance -1405 ml -160 ml 600 ml Intake Oral 200 ml 840 ml 600 ml IV Total 345 ml Output Urine Total 1950 ml 1000 ml # Voids 1 # Bowel Movements 3 1 Physical Exam GENERAL: In NAD SKIN: Warm and dry. HEAD: Normocephalic. EYES: No scleral icterus. No injection or drainage. NECK: Supple, trachea midline. No JVD or lymphadenopathy. CARDIOVASCULAR: Regular rate and rhythm without murmurs, gallops, or rubs. RESPIRATORY: Breath sounds equal bilaterally. No accessory muscle use. GASTROINTESTINAL: Abdomen soft, non-tender, nondistended. MUSCULOSKELETAL: No cyanosis, or edema. Laboratory Laboratory Tests Test 09/25/17 05:20 White Blood Count 2.7 TH/MM3 Red Blood Count 3.70 MIL/MM3 Hemoglobin 9.7 GM/DL Hematocrit 29.8 % Mean Corpuscular Volume 80.5 FL Mean Corpuscular Hemoglobin 26.3 PG Mean Corpuscular Hemoglobin Concent 32.6 % Red Cell Distribution Width 19.7 % Platelet Count 233 TH/MM3 Mean Platelet Volume 8.3 FL Neutrophils (%) (Auto) 87.5 % Lymphocytes (%) (Auto) 11.5 % Monocytes (%) (Auto) 0.9 % Eosinophils (%) (Auto) 0.0 % Basophils (%) (Auto) 0.1 % Neutrophils # (Auto) 2.3 TH/MM3 Lymphocytes # (Auto) 0.3 TH/MM3 Monocytes # (Auto) 0.0 TH/MM3 Eosinophils # (Auto) 0.0 TH/MM3 Basophils # (Auto) 0.0 TH/MM3 CBC Comment DIFF FINAL Differential Comment Prothrombin Time 26.2 SEC Prothromb Time International Ratio 2.6 RATIO Blood Urea Nitrogen LESS THAN 1 MG/DL Creatinine 0.73 MG/DL Random Glucose 136 MG/DL Calcium Level 7.7 MG/DL Sodium Level 142 MEQ/L Potassium Level 3.3 MEQ/L Chloride Level 109 MEQ/L Carbon Dioxide Level 24.2 MEQ/L Anion Gap 9 MEQ/L Estimat Glomerular Filtration Rate 138 ML/MIN Assessment and Plan Problem List: (1) Atrial fibrillation with RVR ICD Codes: I48.91 - Unspecified atrial fibrillation (2) Non-Hodgkin lymphoma ICD Codes: C85.90 - Non-Hodgkin lymphoma, unspecified, unspecified site Status: Acute (3) Debility ICD Codes: R53.81 - Other malaise Status: Acute (4) Hypertension ICD Codes: I10 - Essential (primary) hypertension (5) Anemia ICD Codes: D64.9 - Anemia, unspecified Status: Acute Assessment and Plan No recurrent a fib after pt rechallenged with Rituxan. Tele with SR and PVCs. Continue current program. Continue monitoring on tele. Will continue PO diltiazem, use IV diltiazem if there is recurrent a fib with RVR. Increase activity. Problem Qualifiers (1) Non-Hodgkin lymphoma: Qualified Codes: C83.38 - Diffuse large b-cell lymphoma, lymph nodes of multiple sites (2) Anemia: Qualified Codes: D64.9 - Anemia, unspecified Mayra Azul MD Sep 25, 2017 11:42
[2017-09-25] MEDS: DRONABINOL 2.5 MG CAP PO SCH ×2 (12:02→18:00)
[2017-09-25] MEDS ORDERED: PHARMACY ORDERED LAB ONE (12:45)
[2017-09-25] MEDS: NS + KCL 40 MEQ INJ 1,000 ML IV SCH (13:14)
--- NOTE | 2017-09-25 13:14 | PD.ONC.PN ---
Subjective Subjective Remarks Afebrile overnight. Patient resting in bed in nad. No diarrhea. Tolerating chemotherapy without problems. Objective Data Date Time Temp Pulse Resp B/P (MAP) Pulse Ox O2 Delivery O2 Flow Rate FiO2 09/25/17 12:05 98.0 69 16 160/92 (114) 100 09/25/17 09:45 98.0 54 16 144/91 (108) 99 09/25/17 04:32 98.0 77 16 147/104 (118) 100 09/25/17 00:15 97.9 62 17 160/90 (113) 99 09/24/17 22:00 77 09/24/17 21:39 98.1 73 18 150/79 (102) 97 09/24/17 21:30 Room Air 09/24/17 20:16 21 09/24/17 17:27 98.3 77 16 162/95 (117) 100 09/24/17 13:45 99 09/24/17 13:23 68 09/24/17 13:23 Room Air 09/25/17 09/25/17 09/25/17 07:00 15:00 23:00 Intake Total 600 ml Balance 600 ml Result Diagram: 09/25/17 0520 09/25/17 0520 Laboratory Results Laboratory Tests Test 09/25/17 05:20 White Blood Count 2.7 TH/MM3 Red Blood Count 3.70 MIL/MM3 Hemoglobin 9.7 GM/DL Hematocrit 29.8 % Mean Corpuscular Volume 80.5 FL Mean Corpuscular Hemoglobin 26.3 PG Mean Corpuscular Hemoglobin Concent 32.6 % Red Cell Distribution Width 19.7 % Platelet Count 233 TH/MM3 Mean Platelet Volume 8.3 FL Neutrophils (%) (Auto) 87.5 % Lymphocytes (%) (Auto) 11.5 % Monocytes (%) (Auto) 0.9 % Eosinophils (%) (Auto) 0.0 % Basophils (%) (Auto) 0.1 % Neutrophils # (Auto) 2.3 TH/MM3 Lymphocytes # (Auto) 0.3 TH/MM3 Monocytes # (Auto) 0.0 TH/MM3 Eosinophils # (Auto) 0.0 TH/MM3 Basophils # (Auto) 0.0 TH/MM3 CBC Comment DIFF FINAL Differential Comment Prothrombin Time 26.2 SEC Prothromb Time International Ratio 2.6 RATIO Blood Urea Nitrogen LESS THAN 1 MG/DL Creatinine 0.73 MG/DL Random Glucose 136 MG/DL Calcium Level 7.7 MG/DL Sodium Level 142 MEQ/L Potassium Level 3.3 MEQ/L Chloride Level 109 MEQ/L Carbon Dioxide Level 24.2 MEQ/L Anion Gap 9 MEQ/L Estimat Glomerular Filtration Rate 138 ML/MIN Administered Medications Medications (Trade) Dose Ordered Sig/Shyla Route PRN Reason Start Time Stop Time Status Last Admin Dose Admin Sodium Chloride (NS Flush) 2 ml UNSCH PRN IV FLUSH FLUSH AFTER USING IV ACCESS 09/06/17 13:00 09/08/17 22:44 Sodium Chloride (NS Flush) 2 ml BID IV FLUSH 09/06/17 21:00 09/25/17 09:51 Acetaminophen (Tylenol) 650 mg Q4H PRN PO headache, fever, pain 1-4 09/06/17 13:00 09/06/17 19:41 Ondansetron HCl (Zofran Inj) 4 mg Q6H PRN IVP NAUSEA OR VOMITING 09/06/17 13:00 09/21/17 19:40 Dronabinol (Marinol) 2.5 mg BID@11,16 PO 09/07/17 11:00 09/25/17 12:02 Lactobacillus Acidophilus (Lactinex) 1 tab TID PO 09/11/17 09:00 09/25/17 12:02 Potassium Chloride/Sodium Chloride 1,000 ml @ 42 mls/hr [id number] IV 09/14/17 15:15 09/23/17 21:07 Vancomycin HCl (VANCOMYCIN for oral use only) 500 mg Q6H PO 09/16/17 18:00 09/25/17 12:02 Metronidazole 100 ml @ 100 mls/hr Q8H IV 09/16/17 17:00 09/25/17 09:52 Sodium Chloride (NS Flush) See Protocol DAILY IV FLUSH 09/19/17 09:00 09/23/17 07:45 Heparin Sodium (Porcine) (Heparin Central Flush) See Protocol DAILY IV FLUSH 09/19/17 09:00 09/19/17 12:20 Magnesium Oxide (Mag-Ox) 400 mg DAILY PO 09/19/17 09:00 09/25/17 09:50 Warfarin Sodium (Coumadin) 1 mg DAILY@1600 PO 09/20/17 16:00 Future hold 09/24/17 17:26 Diltiazem HCl (Cardizem) 30 mg Q6HR PO 09/22/17 00:00 09/25/17 12:02 Potassium Chloride (KCl) 10 meq Q12HR PO 09/22/17 21:00 09/25/17 09:51 Vancomycin HCl 1750 mg/Sodium Chloride 517.5 ml @ 250 mls/hr Q24H IV 09/22/17 13:00 09/24/17 15:48 Etoposide 95 mg/ Doxorubicin HCl 19 mg/Vincristine Sulfate 0.76 mg/ Sodium Chloride 515.01 ml @ 21.459 mls/hr Q24H IV-CENTRAL 09/24/17 14:00 09/28/17 13:59 09/24/17 17:41 Granisetron HCl (Kytril Inj) 1 mg Q24H IV PUSH 09/24/17 13:30 09/28/17 13:31 09/24/17 15:45 Prednisone (Deltasone) 100 mg Q12HR PO 09/24/17 11:00 09/28/17 21:01 09/25/17 09:51 Prednisone (Deltasone) 10 mg Q12HR PO 09/24/17 11:00 09/28/17 21:01 09/25/17 09:51 Prednisone (Deltasone) 4 mg Q12HR PO 09/24/17 11:00 09/28/17 21:01 09/25/17 09:50 Objective Remarks GENERAL: Middle aged male sitting up in bed SKIN: Warm and dry. PICC line, left arm, site clean. bandage, right chest wall. HEAD: Normocephalic. EYES: No injection or drainage. NECK: Supple, trachea midline. CARDIOVASCULAR: Regular rate and rhythm RESPIRATORY: Breath sounds equal bilaterally. No accessory muscle use. GASTROINTESTINAL: Abdomen soft, non-tender, nondistended. EXTREMITIES: No cyanosis MUSCULOSKELETAL: Adequate muscle tone. NEUROLOGICAL: awake and alert, normal speech Assessment/Plan Problem List: (1) Sepsis ICD Codes: A41.9 - Sepsis, unspecified organism Plan: --ID following --Most recent blood cultures show no growth --++ vanco, --echo on 09/12 showed vegetation (2) Normocytic anemia ICD Codes: D64.9 - Anemia, unspecified Status: Acute Plan: --monitor and transfuse as needed. (3) Pulmonary emboli ICD Codes: I26.99 - Other pulmonary embolism without acute cor pulmonale Status: Chronic Plan: --on Coumadin (4) Non-Hodgkin lymphoma ICD Codes: C85.90 - Non-Hodgkin lymphoma, unspecified, unspecified site Status: Acute Plan: --09/21: Rituxan started and then stopped as patient developed a.fib w/ RVR --09/22: cardiology consulted and cleared to resume chemotherapy --09/23: Rituxan rechallenged successfully --09/24: EPOCH D1 (5) C. difficile colitis ICD Codes: A04.7 - Enterocolitis due to Clostridium difficile Status: Resolved Plan: --on po vancomycin (6) Atrial fibrillation with RVR ICD Codes: I48.91 - Unspecified atrial fibrillation Plan: --on PO Cardizem, rate controlled. Assessment 47y/o male with high-grade diffuse large B-cell lymphoma admitted for pneumonia and nausea/vomiting as well as anemia. History of pulmonary embolism currently on anticoagulation. Hypertension. Protein-calorie malnutrition. Plan 1. continue EPOCH 2. continue coumadin 3. monitor CBC Attending Statement The exam, history, and the medical decision-making described in the above note were completed with the assistance of the mid-level provider. I reviewed and agree with the findings presented. I attest that I had a [id number] encounter with the patient on the same day, and personally performed and documented my assessment and findings in the medical record. Tolerated first day of EPOCH. Diarrhea stable. No abdominal pain. WBC trending lower. Monitor closely for toxicities. Problem Qualifiers (1) Sepsis: Qualified Codes: A41.02 - Sepsis due to methicillin resistant Staphylococcus aureus (2) Non-Hodgkin lymphoma: Qualified Codes: C83.38 - Diffuse large b-cell lymphoma, lymph nodes of multiple sites Brenda Platt Sep 25, 2017 13:14 Ruslan Connelly MD Sep 25, 2017 14:41
--- NOTE | 2017-09-25 13:57 | HHI.PR ---
Subjective Remarks Patient denies any abdominal pain, fever, cough shortness of breath. States he feels fine. Tolerating chemotherapy. Request coffee. Objective Vitals Vital Signs Date Time Temp Pulse Resp B/P (MAP) Pulse Ox O2 Delivery O2 Flow Rate FiO2 09/25/17 12:05 98.0 69 16 160/92 (114) 100 09/25/17 09:45 98.0 54 16 144/91 (108) 99 09/25/17 04:32 98.0 77 16 147/104 (118) 100 09/25/17 00:15 97.9 62 17 160/90 (113) 99 09/24/17 22:00 77 09/24/17 21:39 98.1 73 18 150/79 (102) 97 09/24/17 21:30 Room Air 09/24/17 20:16 21 09/24/17 17:27 98.3 77 16 162/95 (117) 100 I/O 09/24/17 09/24/17 09/24/17 09/25/17 09/25/17 09/25/17 06:59 14:59 22:59 06:59 14:59 22:59 Intake Total 545 ml 840 ml 600 ml Output Total 1950 ml 1000 ml Balance -1405 ml -160 ml 600 ml Intake Oral 200 ml 840 ml 600 ml IV Total 345 ml Output Urine Total 1950 ml 1000 ml # Voids 1 # Bowel Movements 3 1 Result Diagram: 09/25/17 0509/25/17 0520 Objective Remarks GENERAL: Cachectic chronically ill appearing -[place] male patient. SKIN: Warm and dry. HEAD: Normocephalic. EYES: No scleral icterus. No injection or drainage. NECK: Supple, trachea midline. No JVD or lymphadenopathy. CARDIOVASCULAR: Regular rate and rhythm without murmurs, gallops, or rubs. RESPIRATORY: Breath sounds equal bilaterally. No accessory muscle use. GASTROINTESTINAL: Abdomen soft, non-tender, nondistended. EXTREMITIES: No pedal edema. NEUROLOGICAL: Awake, alert, and oriented x 3. Non-focal. Procedures None. 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 difficile colitis ICD Code: A04.7 - Enterocolitis due to Clostridium difficile Status: Resolved (7) Sepsis ICD Code: A41.9 - Sepsis, unspecified organism (8) Debility ICD Code: R53.81 - Other malaise Status: Acute (9) Atrial fibrillation with RVR ICD Code: I48.91 - Unspecified atrial fibrillation (10) Sepsis due to methicillin resistant Staphylococcus aureus (MRSA) ICD Code: A41.02 - Sepsis due to Methicillin resistant Staphylococcus aureus Assessment and Plan Mr. Werner is a 47-year-old male patient with a known medical history of non- Hodgkin B-cell lymphoma, HTN and history of PE who presented to the ED with complaints of generalized weakness, nausea, vomiting and cough x 1 week. Hemoglobin 6.6 on presentation to ED, 2 units PRBC have been ordered. Acutely febrile, temp 102.5. WBC 20.9. Sepsis, MRSA tricuspid valve endocarditis, MRSA bacteremia, bilateral pneumonia - - s/p Port removal 09/10. -Status post cefepime and Zithromax course -2-D echocardiogram with tricuspid valve vegetation - ID is following-Vancomycin for 6 weeks through October 26 -C. difficile colitis On by mouth vancomycin per ID - until roughly Sep 26. Lactinex. Decreasing frequency of stools overnight. 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 Appreciate cardiology input with Dr. devine. Continue by mouth Cardizem. Microcytic hypochromic anemia: Hemoglobin 6.6/Hematocrit 19.6 on presentation. Hemoccult negative. s/p 2 units PRBC -Hb improved to 9 - monitor H&H Severe protein calorie malnutrition due to the colitis, chronically ill, poor appetite - cont ensure to diet. Persistent, severe hypokalemia: Due to GI loss. Potassium 3.3 today. We'll repeat potassium 20 mEq IV today. Hypertension, chronic: BP 100/66 currently. No need for any antihypertensives. 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 cont Warfarin - monitor INR. pharmacy following for coumadin management Debilitation -Continue PT which patient is not very compliant with. Patient encouraged to work with PT. DVT Prophylaxis: SCDs. on coumadin Discharge Planning SNF Problem Qualifiers (1) Non-Hodgkin lymphoma: Qualified Codes: C83.38 - Diffuse large b-cell lymphoma, lymph nodes of multiple sites (2) Anemia: Qualified Codes: D64.9 - Anemia, unspecified (3) Sepsis: Qualified Codes: A41.02 - Sepsis due to methicillin resistant Staphylococcus aureus Arminda Diehl MD Sep 25, 2017 13:57
[2017-09-25] MEDS ORDERED: POTASSIUM CHLOR 20 MEQ PREMIX 100 ML IV ONE (14:00)
[2017-09-25] MEDS: GRANISETRON HCL 1 MG/ML VIAL IV PUSH SCH (15:35)
[2017-09-25] MEDS: WARFARIN SOD 1 MG TAB PO SCH (17:44)
[2017-09-25] MEDS: VINCRISTINE IV-CENTRAL SCH (19:47)
[2017-09-25] MEDS: [UNRECOGNIZED DRUG - OTHER] IV-CENTRAL SCH (19:47)
[2017-09-25] MEDS: ETOPOSIDE IV-CENTRAL SCH (19:47)
[2017-09-25] MEDS: DOXORUBICIN IV-CENTRAL SCH (19:47)
[2017-09-25] MEDS: VANCOMYCIN INJ 1,250 MG in SODIUM CHLOR 0.9% 250 ML INJ 250 ML IV SCH (21:00)
[2017-09-25] MEDS: VANCOMYCIN INJ 1,750 MG in SODIUM CHLORID 0.9% 500 ML INJ 500 ML IV SCH (21:42)
[2017-09-26] VITALS (9 sets, daily range): BP systolic 123–166; BP diastolic 80–100; PULSE 55–65; RESP 16–18; TEMP 97.6–97.9; O2SAT 97–100
[2017-09-26] MEDS: metroNIDAZOLE 500 MG INJ 100 ML IV SCH ×3 (00:49→18:12)
[2017-09-26] MEDS: DILTIAZEM HCL 30 MG TAB PO SCH ×4 (00:49→18:13)
[2017-09-26] MEDS: VANCOMYCIN 500 MG VIAL (FOR ORAL USE ONLY) PO SCH ×4 (00:49→18:13)
[2017-09-26 07:11] LABS: BASOPHIL % 0.1 % (0.0-2.0); HEMATOCRIT 27.3 % (39.0-51.0); HEMOGLOBIN 8.8 GM/DL (13.0-17.0); LYMPH % 9.6 % (9.0-44.0); LYMPHOCYTE # 0.2 TH/MM3 (1.0-4.8); MEAN CELL VOLUME 80.9 FL (80.0-100.0); MEAN CORPUSCULAR HEMOGLOBIN 26.1 PG (27.0-34.0); MEAN CORPUSCULAR HGB CONC 32.2 % (32.0-36.0); MEAN PLATELET VOLUME 8.2 FL (7.0-11.0); MONO % 4.1 % (0.0-8.0); MONOCYTE # 0.1 TH/MM3 (0-0.9); NEUT % 86.2 % (16.0-70.0); PLATELET COUNT 238 TH/MM3 (150-450); RED BLOOD COUNT 3.37 MIL/MM3 (4.50-5.90); RED CELL DISTRIBUTION WIDTH 19.8 % (11.6-17.2); WHITE BLOOD COUNT 2.3 TH/MM3 (4.0-11.0)
[2017-09-26 07:17] LABS: INTERNATIONAL NORMALIZED RATIO 2.7 RATIO
[2017-09-26 07:36] LABS: BICARBONATE 22.8 MEQ/L (21.0-32.0); CALCIUM 7.6 MG/DL (8.5-10.1); CREATININE 0.85 MG/DL (0.60-1.30)
[2017-09-26] MEDS: SODIUM CHLORIDE 0.9% FLUSH 10 ML FLUSH IV FLUSH SCH ×3 (09:00→21:40)
[2017-09-26] MEDS: MAGNESIUM OXIDE 400 MG TAB PO SCH (09:00)
--- NOTE | 2017-09-26 09:47 | PD.ONC.PN ---
Subjective Subjective Remarks Afebrile overnight Patient resting in bed watching TV in no acute distress Reports he feels okay Had 2 bowel movements yesterday Tolerating chemotherapy Objective Data Date Time Temp Pulse Resp B/P (MAP) Pulse Ox O2 Delivery O2 Flow Rate FiO2 09/26/17 05:20 97.8 56 18 159/93 (115) 98 09/26/17 04:09 55 09/26/17 00:47 97.7 58 18 157/96 (116) 97 09/25/17 23:04 59 09/25/17 20:15 59 09/25/17 20:01 98.3 69 16 152/94 (113) 99 09/25/17 20:00 Room Air 09/25/17 15:30 97.7 63 16 126/86 (99) 98 09/25/17 14:24 100 09/25/17 12:05 98.0 69 16 160/92 (114) 100 09/25/17 09:45 98.0 54 16 144/91 (108) 99 Result Diagram: 09/26/17 0616 09/26/17 0616 Laboratory Results Laboratory Tests Test 09/25/17 18:50 09/26/17 06:16 Vancomycin Level Trough 22.2 MCG/ML White Blood Count 2.3 TH/MM3 Red Blood Count 3.37 MIL/MM3 Hemoglobin 8.8 GM/DL Hematocrit 27.3 % Mean Corpuscular Volume 80.9 FL Mean Corpuscular Hemoglobin 26.1 PG Mean Corpuscular Hemoglobin Concent 32.2 % Red Cell Distribution Width 19.8 % Platelet Count 238 TH/MM3 Mean Platelet Volume 8.2 FL Neutrophils (%) (Auto) 86.2 % Lymphocytes (%) (Auto) 9.6 % Monocytes (%) (Auto) 4.1 % Eosinophils (%) (Auto) 0.0 % Basophils (%) (Auto) 0.1 % Neutrophils # (Auto) 2.0 TH/MM3 Lymphocytes # (Auto) 0.2 TH/MM3 Monocytes # (Auto) 0.1 TH/MM3 Eosinophils # (Auto) 0.0 TH/MM3 Basophils # (Auto) 0.0 TH/MM3 CBC Comment DIFF FINAL Differential Comment Prothrombin Time 27.0 SEC Prothromb Time International Ratio 2.7 RATIO Blood Urea Nitrogen 4 MG/DL Creatinine 0.85 MG/DL Random Glucose 134 MG/DL Calcium Level 7.6 MG/DL Sodium Level 141 MEQ/L Potassium Level 3.5 MEQ/L Chloride Level 109 MEQ/L Carbon Dioxide Level 22.8 MEQ/L Anion Gap 9 MEQ/L Estimat Glomerular Filtration Rate 116 ML/MIN Administered Medications Medications (Trade) Dose Ordered Sig/Shyla Route PRN Reason Start Time Stop Time Status Last Admin Dose Admin Sodium Chloride (NS Flush) 2 ml UNSCH PRN IV FLUSH FLUSH AFTER USING IV ACCESS 09/06/17 13:00 09/08/17 22:44 Sodium Chloride (NS Flush) 2 ml BID IV FLUSH 09/06/17 21:00 09/25/17 21:44 Acetaminophen (Tylenol) 650 mg Q4H PRN PO headache, fever, pain 1-4 09/06/17 13:00 09/06/17 19:41 Ondansetron HCl (Zofran Inj) 4 mg Q6H PRN IVP NAUSEA OR VOMITING 09/06/17 13:00 09/21/17 19:40 Dronabinol (Marinol) 2.5 mg BID@11,16 PO 09/07/17 11:00 09/25/17 18:00 Lactobacillus Acidophilus (Lactinex) 1 tab TID PO 09/11/17 09:00 09/25/17 17:44 Potassium Chloride/Sodium Chloride 1,000 ml @ 42 mls/hr [id number] IV 09/14/17 15:15 09/23/17 21:07 Vancomycin HCl (VANCOMYCIN for oral use only) 500 mg Q6H PO 09/16/17 18:00 09/26/17 06:08 Metronidazole 100 ml @ 100 mls/hr Q8H IV 09/16/17 17:00 09/26/17 00:49 Sodium Chloride (NS Flush) See Protocol DAILY IV FLUSH 09/19/17 09:00 09/23/17 07:45 Heparin Sodium (Porcine) (Heparin Central Flush) See Protocol DAILY IV FLUSH 09/19/17 09:00 09/19/17 12:20 Magnesium Oxide (Mag-Ox) 400 mg DAILY PO 09/19/17 09:00 09/25/17 09:50 Warfarin Sodium (Coumadin) 1 mg DAILY@1600 PO 09/20/17 16:00 Future hold 09/25/17 17:44 Diltiazem HCl (Cardizem) 30 mg Q6HR PO 09/22/17 00:00 09/26/17 06:08 Potassium Chloride (KCl) 10 meq Q12HR PO 09/22/17 21:00 09/25/17 21:43 Etoposide 95 mg/ Doxorubicin HCl 19 mg/Vincristine Sulfate 0.76 mg/ Sodium Chloride 515.01 ml @ 21.459 mls/hr Q24H IV-CENTRAL 09/24/17 14:00 09/28/17 13:59 09/25/17 19:47 Granisetron HCl (Kytril Inj) 1 mg Q24H IV PUSH 09/24/17 13:30 09/28/17 13:31 09/25/17 15:35 Prednisone (Deltasone) 100 mg Q12HR PO 09/24/17 11:00 09/28/17 21:01 09/25/17 21:43 Prednisone (Deltasone) 10 mg Q12HR PO 09/24/17 11:00 09/28/17 21:01 09/25/17 21:43 Prednisone (Deltasone) 4 mg Q12HR PO 09/24/17 11:00 09/28/17 21:01 09/25/17 21:43 Objective Remarks GENERAL: Middle-aged male resting in bed in no acute distress SKIN: Warm and dry. HEAD: Normocephalic. EYES: No injection or drainage. NECK: Supple, trachea midline. LYMPHATIC: Positive lymphadenopathy to left axilla, right supraclavicular area CARDIOVASCULAR: Regular rate and rhythm without murmurs. RESPIRATORY: Breath sounds equal bilaterally. No accessory muscle use. GASTROINTESTINAL: Abdomen soft, non-tender, nondistended. EXTREMITIES: No cyanosis. Pedal edema MUSCULOSKELETAL: Generalized weakness NEUROLOGICAL: No obvious focal deficit. Awake, alert, and oriented x3. Assessment/Plan Problem List: (1) Non-Hodgkin lymphoma ICD Codes: C85.90 - Non-Hodgkin lymphoma, unspecified, unspecified site Status: Acute Plan: --09/21: Rituxan started and then stopped as patient developed a.fib w/ RVR --09/22: cardiology consulted and cleared to resume chemotherapy --09/23: Rituxan rechallenged successfully --09/24: EPOCH D1 --09/25: --09/26: (2) Sepsis ICD Codes: A41.9 - Sepsis, unspecified organism Plan: --ID following --Most recent blood cultures show no growth --++ vanco, --echo on 09/12 showed vegetation (3) Normocytic anemia ICD Codes: D64.9 - Anemia, unspecified Status: Acute Plan: --monitor and transfuse as needed. (4) Pulmonary emboli ICD Codes: I26.99 - Other pulmonary embolism without acute cor pulmonale Status: Chronic Plan: --on Coumadin (5) C. difficile colitis ICD Codes: A04.7 - Enterocolitis due to Clostridium difficile Status: Resolved Plan: --on po vancomycin (6) Atrial fibrillation with RVR ICD Codes: I48.91 - Unspecified atrial fibrillation Plan: --on PO Cardizem, rate controlled. Assessment 47y/o male with high-grade diffuse large B-cell lymphoma admitted for pneumonia and nausea/vomiting as well as anemia. History of pulmonary embolism currently on anticoagulation. Hypertension. Protein-calorie malnutrition. Plan 1. Continue EPOCH chemotherapy 2. Monitor CBC/PT/INR 3. Encourage increased physical activity 4. Supportive care Attending Statement The exam, history, and the medical decision-making described in the above note were completed with the assistance of the mid-level provider. I reviewed and agree with the findings presented. I attest that I had a [id number] encounter with the patient on the same day, and personally performed and documented my assessment and findings in the medical record. Pt seen and examined. Taciturn. No complaints. R EPOCH proceeding well as ordered. Continue tx for C-diff. Encourage to ambulate and exercise ROM in bed. Problem Qualifiers (1) Non-Hodgkin lymphoma: Qualified Codes: C83.38 - Diffuse large b-cell lymphoma, lymph nodes of multiple sites (2) Sepsis: Qualified Codes: A41.02 - Sepsis due to methicillin resistant Staphylococcus aureus Tia Montenegro Sep 26, 2017 09:47 Joanna Castellon MD Sep 26, 2017 12:20
[2017-09-26] MEDS: POTASSIUM CHLORIDE 10 MEQ CONTROLLED RELEASE TAB PO SCH ×2 (10:20→21:40)
[2017-09-26] MEDS: LACTOBACILLUS ACIDOPHILUS TAB PO SCH ×3 (10:20→18:12)
[2017-09-26] MEDS: predniSONE 50 MG TAB PO SCH ×2 (10:21→21:39)
[2017-09-26] MEDS: predniSONE 10 MG TAB PO SCH ×2 (10:21→21:39)
[2017-09-26] MEDS: predniSONE 1 MG TAB PO SCH ×2 (10:21→21:39)
[2017-09-26] MEDS: DRONABINOL 2.5 MG CAP PO SCH ×2 (11:00→18:12)
--- NOTE | 2017-09-26 12:22 | HHI.PR ---
Subjective Remarks Patient is doing well. Denies fever or abdominal pain. Potassium is normal today. Objective Vitals Vital Signs Date Time Temp Pulse Resp B/P (MAP) Pulse Ox O2 Delivery O2 Flow Rate FiO2 09/26/17 09:45 97.9 59 18 166/100 (122) 98 09/26/17 05:20 97.8 56 18 159/93 (115) 98 09/26/17 04:09 55 09/26/17 00:47 97.7 58 18 157/96 (116) 97 09/25/17 23:04 59 09/25/17 20:15 59 09/25/17 20:01 98.3 69 16 152/94 (113) 99 09/25/17 20:00 Room Air 09/25/17 15:30 97.7 63 16 126/86 (99) 98 09/25/17 14:24 100 I/O 09/25/17 09/25/17 09/25/17 09/26/17 09/26/17 09/26/17 07:00 15:00 23:00 07:00 15:00 23:00 Intake Total 600 ml 2269 ml Output Total 300 ml 600 ml Balance 600 ml -300 ml 1669 ml Intake Oral 600 ml 1740 ml IV Total 529 ml Output Urine Total 300 ml 600 ml # Voids 1 # Bowel Movements 1 2 3 Result Diagram: 09/26/17 0616 09/26/17 0616 Objective Remarks GENERAL: Cachectic chronically ill appearing -Russian Russian male patient. SKIN: Warm and dry. HEAD: Normocephalic. EYES: No scleral icterus. No injection or drainage. NECK: Supple, trachea midline. No JVD or lymphadenopathy. CARDIOVASCULAR: Regular rate and rhythm without murmurs, gallops, or rubs. RESPIRATORY: Breath sounds equal bilaterally. No accessory muscle use. GASTROINTESTINAL: Abdomen soft, non-tender, nondistended. EXTREMITIES: No pedal edema. NEUROLOGICAL: Awake, alert, and oriented x 3. Non-focal. Procedures None. 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 difficile colitis ICD Code: A04.7 - Enterocolitis due to Clostridium difficile Status: Resolved (7) Sepsis ICD Code: A41.9 - Sepsis, unspecified organism (8) Debility ICD Code: R53.81 - Other malaise Status: Acute (9) Atrial fibrillation with RVR ICD Code: I48.91 - Unspecified atrial fibrillation (10) Sepsis due to methicillin resistant Staphylococcus aureus (MRSA) ICD Code: A41.02 - Sepsis due to Methicillin resistant Staphylococcus aureus Assessment and Plan Mr. Werner is a 47-year-old male patient with a known medical history of non- Hodgkin B-cell lymphoma, HTN and history of PE who presented to the ED with complaints of generalized weakness, nausea, vomiting and cough x 1 week. Sepsis, MRSA tricuspid valve endocarditis, MRSA bacteremia, bilateral pneumonia - - s/p Port removal 09/10. -Status post cefepime and Zithromax course -2-D echocardiogram with tricuspid valve vegetation - ID is following-Vancomycin for 6 weeks through October 26 -C. difficile colitis On by mouth vancomycin per ID - until roughly Sep 26. Lactinex. Decreasing frequency of stools overnight. 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 Appreciate cardiology input with Dr. devine. Continue by mouth Cardizem. Microcytic hypochromic anemia: Hemoglobin 6.6/Hematocrit 19.6 on presentation. Hemoccult negative. s/p 2 units PRBC -Hb improved to 9 - monitor H&H Severe protein calorie malnutrition due to the colitis, chronically ill, poor appetite - cont ensure to diet. Persistent, severe hypokalemia: Due to GI loss. Potassium 3. 5 today Hypertension, chronic: BP 100/66 currently. No need for any antihypertensives. 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 cont Warfarin - monitor INR. pharmacy following for coumadin management Debilitation -Continue PT which patient is not very compliant with. Patient encouraged to work with PT. DVT Prophylaxis: SCDs. on coumadin Discharge Planning SNF when stable for discharge Problem Qualifiers (1) Non-Hodgkin lymphoma: Qualified Codes: C83.38 - Diffuse large b-cell lymphoma, lymph nodes of multiple sites (2) Anemia: Qualified Codes: D64.9 - Anemia, unspecified (3) Sepsis: Qualified Codes: A41.02 - Sepsis due to methicillin resistant Staphylococcus aureus Arminda Diehl MD Sep 26, 2017 12:22
[2017-09-26] MEDS: NIFEdipine 90 MG SUSTAINED RELEASE TAB PO SCH (12:30)
[2017-09-26] MEDS ORDERED: SODIUM CHLORID 0.9% IV ONE (14:00)
[2017-09-26] MEDS ORDERED: CYCLOPHOSPHAMIDE IV ONE (14:00)
[2017-09-26] MEDS: WARFARIN SOD 1 MG TAB PO SCH (18:13)
[2017-09-26] MEDS: NS + KCL 40 MEQ INJ 1,000 ML IV SCH (18:13)
[2017-09-26] MEDS: GRANISETRON HCL 1 MG/ML VIAL IV PUSH SCH (20:00)
[2017-09-26] MEDS: VANCOMYCIN INJ 1,250 MG in SODIUM CHLOR 0.9% 250 ML INJ 250 ML IV SCH (21:40)
[2017-09-26] MEDS: DOXORUBICIN IV-CENTRAL SCH (21:50)
[2017-09-26] MEDS: ETOPOSIDE IV-CENTRAL SCH (21:50)
[2017-09-26] MEDS: VINCRISTINE IV-CENTRAL SCH (21:50)
[2017-09-26] MEDS: [UNRECOGNIZED DRUG - OTHER] IV-CENTRAL SCH (21:50)
[2017-09-27] VITALS (9 sets, daily range): BP systolic 93–115; BP diastolic 59–76; PULSE 58–71; RESP 16–19; TEMP 97.6–98.5; O2SAT 95–100
[2017-09-27] MEDS: VANCOMYCIN 500 MG VIAL (FOR ORAL USE ONLY) PO SCH ×4 (00:20→17:48)
[2017-09-27] MEDS: DILTIAZEM HCL 30 MG TAB PO SCH ×4 (00:20→17:48)
[2017-09-27] MEDS: metroNIDAZOLE 500 MG INJ 100 ML IV SCH ×3 (00:20→17:49)
[2017-09-27 06:47] LABS: INTERNATIONAL NORMALIZED RATIO 2.4 RATIO; PROTHROMBIN TIME - PATIENT 24.1 SEC (9.8-11.6)
[2017-09-27 06:54] LABS: AUTOMATED NEUTROPHIL # 2.6 TH/MM3 (1.8-7.7); BASOPHIL % 0.2 % (0.0-2.0); EOSINOPHIL % 0.4 % (0.0-4.0); HEMATOCRIT 29.1 % (39.0-51.0); HEMOGLOBIN 9.6 GM/DL (13.0-17.0); LYMPH % 7.2 % (9.0-44.0); LYMPHOCYTE # 0.2 TH/MM3 (1.0-4.8); MEAN CELL VOLUME 80.5 FL (80.0-100.0); MEAN CORPUSCULAR HEMOGLOBIN 26.6 PG (27.0-34.0); MEAN PLATELET VOLUME 7.8 FL (7.0-11.0); MONO % 3.7 % (0.0-8.0); MONOCYTE # 0.1 TH/MM3 (0-0.9); NEUT % 88.5 % (16.0-70.0); PLATELET COUNT 225 TH/MM3 (150-450); RED BLOOD COUNT 3.61 MIL/MM3 (4.50-5.90); RED CELL DISTRIBUTION WIDTH 19.6 % (11.6-17.2); WHITE BLOOD COUNT 2.9 TH/MM3 (4.0-11.0)
[2017-09-27 07:03] LABS: BICARBONATE 23.7 MEQ/L (21.0-32.0); CALCIUM 7.4 MG/DL (8.5-10.1); CREATININE 0.81 MG/DL (0.60-1.30)
[2017-09-27 07:39] LABS: CALCIUM-PROTEIN CORRECTED 8.3 MG/DL (8.5-10.1); TOTAL PROTEIN 5.4 GM/DL (6.4-8.2)
[2017-09-27] MEDS: SODIUM CHLORIDE 0.9% FLUSH 10 ML FLUSH IV FLUSH SCH ×3 (08:50→20:22)
[2017-09-27] MEDS: predniSONE 50 MG TAB PO SCH ×2 (08:51→20:22)
[2017-09-27] MEDS: NIFEdipine 90 MG SUSTAINED RELEASE TAB PO SCH (08:51)
[2017-09-27] MEDS: LACTOBACILLUS ACIDOPHILUS TAB PO SCH ×3 (08:51→17:48)
[2017-09-27] MEDS: MAGNESIUM OXIDE 400 MG TAB PO SCH (08:51)
[2017-09-27] MEDS: POTASSIUM CHLORIDE 10 MEQ CONTROLLED RELEASE TAB PO SCH ×2 (08:51→20:21)
[2017-09-27] MEDS: predniSONE 10 MG TAB PO SCH ×2 (08:51→20:22)
--- NOTE | 2017-09-27 09:14 | PD.ONC.PN ---
Subjective Subjective Remarks Afebrile Patient sitting up on side of bed working with physical therapy Reports he is feeling well No diarrhea Objective Data Date Time Temp Pulse Resp B/P (MAP) Pulse Ox O2 Delivery O2 Flow Rate FiO2 09/27/17 08:46 97.6 60 16 103/62 (76) 98 09/27/17 07:23 95 21 09/27/17 05:48 63 93/66 (75) 09/27/17 04:10 98.0 61 16 94/64 (74) 98 09/27/17 00:16 98.1 71 19 115/76 (89) 96 09/26/17 23:26 65 09/26/17 20:02 63 09/26/17 19:51 Room Air 09/26/17 19:50 97.9 65 17 123/80 (94) 100 09/26/17 12:00 97.6 56 16 164/100 (121) 100 09/26/17 09:45 97.9 59 18 166/100 (122) 98 09/27/17 09/27/17 09/27/17 07:00 15:00 23:00 Intake Total 500 ml Output Total 350 ml Balance 150 ml Result Diagram: 09/27/17 0555 09/27/17 0555 Laboratory Results Laboratory Tests Test 09/27/17 05:55 White Blood Count 2.9 TH/MM3 Red Blood Count 3.61 MIL/MM3 Hemoglobin 9.6 GM/DL Hematocrit 29.1 % Mean Corpuscular Volume 80.5 FL Mean Corpuscular Hemoglobin 26.6 PG Mean Corpuscular Hemoglobin Concent 33.0 % Red Cell Distribution Width 19.6 % Platelet Count 225 TH/MM3 Mean Platelet Volume 7.8 FL Neutrophils (%) (Auto) 88.5 % Lymphocytes (%) (Auto) 7.2 % Monocytes (%) (Auto) 3.7 % Eosinophils (%) (Auto) 0.4 % Basophils (%) (Auto) 0.2 % Neutrophils # (Auto) 2.6 TH/MM3 Lymphocytes # (Auto) 0.2 TH/MM3 Monocytes # (Auto) 0.1 TH/MM3 Eosinophils # (Auto) 0.0 TH/MM3 Basophils # (Auto) 0.0 TH/MM3 CBC Comment DIFF FINAL Differential Comment Prothrombin Time 24.1 SEC Prothromb Time International Ratio 2.4 RATIO Blood Urea Nitrogen 7 MG/DL Creatinine 0.81 MG/DL Random Glucose 129 MG/DL Total Protein 5.4 GM/DL Calcium Level 7.4 MG/DL Sodium Level 138 MEQ/L Potassium Level 3.5 MEQ/L Chloride Level 106 MEQ/L Carbon Dioxide Level 23.7 MEQ/L Anion Gap 8 MEQ/L Estimat Glomerular Filtration Rate 123 ML/MIN Protein Corrected Calcium 8.3 MG/DL Administered Medications Medications (Trade) Dose Ordered Sig/Shyla Route PRN Reason Start Time Stop Time Status Last Admin Dose Admin Sodium Chloride (NS Flush) 2 ml UNSCH PRN IV FLUSH FLUSH AFTER USING IV ACCESS 09/06/17 13:00 09/08/17 22:44 Sodium Chloride (NS Flush) 2 ml BID IV FLUSH 09/06/17 21:00 09/27/17 08:50 Acetaminophen (Tylenol) 650 mg Q4H PRN PO headache, fever, pain 1-4 09/06/17 13:00 09/06/17 19:41 Ondansetron HCl (Zofran Inj) 4 mg Q6H PRN IVP NAUSEA OR VOMITING 09/06/17 13:00 09/21/17 19:40 Dronabinol (Marinol) 2.5 mg BID@11,16 PO 09/07/17 11:00 09/26/17 18:12 Lactobacillus Acidophilus (Lactinex) 1 tab TID PO 09/11/17 09:00 09/27/17 08:51 Potassium Chloride/Sodium Chloride 1,000 ml @ 42 mls/hr [id number] IV 09/14/17 15:15 09/26/17 18:13 Vancomycin HCl (VANCOMYCIN for oral use only) 500 mg Q6H PO 09/16/17 18:00 09/27/17 05:50 Metronidazole 100 ml @ 100 mls/hr Q8H IV 09/16/17 17:00 09/27/17 08:52 Sodium Chloride (NS Flush) See Protocol DAILY IV FLUSH 09/19/17 09:00 09/23/17 07:45 Heparin Sodium (Porcine) (Heparin Central Flush) See Protocol DAILY IV FLUSH 09/19/17 09:00 09/19/17 12:20 Magnesium Oxide (Mag-Ox) 400 mg DAILY PO 09/19/17 09:00 09/27/17 08:51 Warfarin Sodium (Coumadin) 1 mg DAILY@1600 PO 09/20/17 16:00 Future hold 09/26/17 18:13 Diltiazem HCl (Cardizem) 30 mg Q6HR PO 09/22/17 00:00 09/27/17 00:20 Potassium Chloride (KCl) 10 meq Q12HR PO 09/22/17 21:00 09/27/17 08:51 Etoposide 95 mg/ Doxorubicin HCl 19 mg/Vincristine Sulfate 0.76 mg/ Sodium Chloride 515.01 ml @ 21.459 mls/hr Q24H IV-CENTRAL 09/24/17 14:00 09/28/17 13:59 09/26/17 21:50 Granisetron HCl (Kytril Inj) 1 mg Q24H IV PUSH 09/24/17 13:30 09/28/17 13:31 09/26/17 20:00 Prednisone (Deltasone) 100 mg Q12HR PO 09/24/17 11:00 09/28/17 21:01 09/27/17 08:51 Prednisone (Deltasone) 10 mg Q12HR PO 09/24/17 11:00 09/28/17 21:01 09/27/17 08:51 Prednisone (Deltasone) 4 mg Q12HR PO 09/24/17 11:00 09/28/17 21:01 09/26/17 21:39 Vancomycin HCl 1250 mg/Sodium Chloride 262.5 ml @ 250 mls/hr Q24H IV 09/25/17 21:00 09/26/17 21:40 Nifedipine (Procardia Xl) 90 mg DAILY PO 09/26/17 12:30 09/27/17 08:51 Objective Remarks GENERAL: Middle-aged male resting in bed in no acute distress SKIN: Warm and dry. HEAD: Normocephalic. EYES: No injection or drainage. NECK: Supple, trachea midline. LYMPHATIC: Positive lymphadenopathy to left axilla, right supraclavicular area CARDIOVASCULAR: Regular rate and rhythm without murmurs. RESPIRATORY: Breath sounds equal bilaterally. No accessory muscle use. GASTROINTESTINAL: Abdomen soft, non-tender, nondistended. EXTREMITIES: No cyanosis. Generalized edema MUSCULOSKELETAL: Generalized weakness NEUROLOGICAL: No obvious focal deficit. Awake, alert, and oriented x3. Assessment/Plan Problem List: (1) Non-Hodgkin lymphoma ICD Codes: C85.90 - Non-Hodgkin lymphoma, unspecified, unspecified site Status: Acute Plan: --09/21: Rituxan started and then stopped as patient developed a.fib w/ RVR --09/22: cardiology consulted and cleared to resume chemotherapy --09/23: Rituxan rechallenged successfully --09/24: EPOCH D1 --09/25:EPOCH D2 --09/26:EPOCH D3 --09/27:EPOCH D4 (2) Sepsis ICD Codes: A41.9 - Sepsis, unspecified organism Plan: --ID following --Most recent blood cultures show no growth --++ vanco, --echo on 09/12 showed vegetation (3) Normocytic anemia ICD Codes: D64.9 - Anemia, unspecified Status: Acute Plan: --monitor and transfuse as needed. (4) Pulmonary emboli ICD Codes: I26.99 - Other pulmonary embolism without acute cor pulmonale Status: Chronic Plan: --on Coumadin (5) C. difficile colitis ICD Codes: A04.7 - Enterocolitis due to Clostridium difficile Status: Resolved Plan: --on po vancomycin (6) Atrial fibrillation with RVR ICD Codes: I48.91 - Unspecified atrial fibrillation Plan: --on PO Cardizem, rate controlled. Assessment 47y/o male with high-grade diffuse large B-cell lymphoma admitted for pneumonia and nausea/vomiting as well as anemia. History of pulmonary embolism currently on anticoagulation. Hypertension. Protein-calorie malnutrition. Plan 1. Patient tolerating chemotherapy; day 4 EPOCH today 2. Monitor CBC/PT/INR 3. Continue daily physical therapy 4. Supportive care Attending Statement The exam, history, and the medical decision-making described in the above note were completed with the assistance of the mid-level provider. I reviewed and agree with the findings presented. I attest that I had a [id number] encounter with the patient on the same day, and personally performed and documented my assessment and findings in the medical record. Pt seen and examined. Chemo on going. Stool better, eating. Leukopenia and anemia stable. Afebrile. Continue chemo as ordered, L axillary adenopathy still present. Problem Qualifiers (1) Non-Hodgkin lymphoma: Qualified Codes: C83.38 - Diffuse large b-cell lymphoma, lymph nodes of multiple sites (2) Sepsis: Qualified Codes: A41.02 - Sepsis due to methicillin resistant Staphylococcus aureus Tia Montenegro Sep 27, 2017 09:14 Joanna Castellon MD Sep 27, 2017 12:04
[2017-09-27] MEDS: DRONABINOL 2.5 MG CAP PO SCH ×2 (11:00→16:00)
[2017-09-27] MEDS: NS + KCL 40 MEQ INJ 1,000 ML IV SCH (12:52)
[2017-09-27] MEDS: predniSONE 1 MG TAB PO SCH ×2 (13:33→20:22)
--- NOTE | 2017-09-27 15:19 | HHI.PR ---
Subjective Remarks No complaints Objective Vitals Vital Signs Date Time Temp Pulse Resp B/P (MAP) Pulse Ox O2 Delivery O2 Flow Rate FiO2 09/27/17 11:42 Room Air 09/27/17 08:46 97.6 60 16 103/62 (76) 98 09/27/17 07:23 95 21 09/27/17 05:48 63 93/66 (75) 09/27/17 04:10 98.0 61 16 94/64 (74) 98 09/27/17 00:16 98.1 71 19 115/76 (89) 96 09/26/17 23:26 65 09/26/17 20:02 63 09/26/17 19:51 Room Air 09/26/17 19:50 97.9 65 17 123/80 (94) 100 I/O 09/26/17 09/26/17 09/26/17 09/27/17 09/27/17 09/27/17 07:00 15:00 23:00 07:00 15:00 23:00 Intake Total 100 ml 2200 ml 500 ml Output Total 600 ml 830 ml 350 ml Balance -500 ml 1370 ml 150 ml Intake Oral 2100 ml 500 ml IV Total 100 ml 100 ml Output Urine Total 600 ml 830 ml 350 ml # Bowel Movements 3 2 Result Diagram: 09/27/17 0555 09/27/17 0555 Objective Remarks GENERAL: Cachectic chronically ill appearing -Congolese Congolese male patient. SKIN: Warm and dry. HEAD: Normocephalic. EYES: No scleral icterus. No injection or drainage. NECK: Supple, trachea midline. No JVD or lymphadenopathy. CARDIOVASCULAR: Regular rate and rhythm without murmurs, gallops, or rubs. RESPIRATORY: Breath sounds equal bilaterally. No accessory muscle use. GASTROINTESTINAL: Abdomen soft, non-tender, nondistended. EXTREMITIES: No pedal edema. NEUROLOGICAL: Awake, alert, and oriented x 3. Non-focal. Procedures None. 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 difficile colitis ICD Code: A04.7 - Enterocolitis due to Clostridium difficile Status: Resolved (7) Sepsis ICD Code: A41.9 - Sepsis, unspecified organism (8) Debility ICD Code: R53.81 - Other malaise Status: Acute (9) Atrial fibrillation with RVR ICD Code: I48.91 - Unspecified atrial fibrillation (10) Sepsis due to methicillin resistant Staphylococcus aureus (MRSA) ICD Code: A41.02 - Sepsis due to Methicillin resistant Staphylococcus aureus Assessment and Plan Mr. Werner is a 47-year-old male patient with a known medical history of non- Hodgkin B-cell lymphoma, HTN and history of PE who presented to the ED with complaints of generalized weakness, nausea, vomiting and cough x 1 week. Sepsis, MRSA tricuspid valve endocarditis, MRSA bacteremia, bilateral pneumonia - - s/p Port removal 09/10. -Status post cefepime and Zithromax course -2-D echocardiogram with tricuspid valve vegetation - ID is following-Vancomycin for 6 weeks through October 26 -C. difficile colitis On by mouth vancomycin per ID - until roughly Sep 26. Lactinex. Decreasing frequency of stools overnight. 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 Appreciate cardiology input with Dr. devine. Continue by mouth Cardizem. Microcytic hypochromic anemia: Hemoglobin 6.6/Hematocrit 19.6 on presentation. Hemoccult negative. s/p 2 units PRBC -Hb improved to 9 - monitor H&H Severe protein calorie malnutrition due to the colitis, chronically ill, poor appetite - cont ensure to diet. Hypokalemia: Due to GI loss. Potassium wnl today. Hypertension, chronic: BP running a little lower, decrease procardia xl to 60 mg daily. 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 cont Warfarin - monitor INR. pharmacy following for coumadin management Debilitation -Continue PT which patient is not very compliant with. Patient encouraged to work with PT. DVT Prophylaxis: SCDs. on coumadin Discharge Planning SNF when stable for discharge Problem Qualifiers (1) Non-Hodgkin lymphoma: Qualified Codes: C83.38 - Diffuse large b-cell lymphoma, lymph nodes of multiple sites (2) Anemia: Qualified Codes: D64.9 - Anemia, unspecified (3) Sepsis: Qualified Codes: A41.02 - Sepsis due to methicillin resistant Staphylococcus aureus Arminda Diehl MD Sep 27, 2017 15:19
[2017-09-27] MEDS: WARFARIN SOD 1 MG TAB PO SCH (16:00)
[2017-09-27] MEDS: GRANISETRON HCL 1 MG/ML VIAL IV PUSH SCH (20:21)
[2017-09-27] MEDS: VANCOMYCIN INJ 1,250 MG in SODIUM CHLOR 0.9% 250 ML INJ 250 ML IV SCH (22:32)
[2017-09-28] VITALS (11 sets, daily range): BP systolic 103–126; BP diastolic 62–71; PULSE 62–69; RESP 15–20; TEMP 97.5–97.9; O2SAT 97–100
[2017-09-28] MEDS: DILTIAZEM HCL 30 MG TAB PO SCH ×5 (00:24→23:25)
[2017-09-28] MEDS: metroNIDAZOLE 500 MG INJ 100 ML IV SCH ×2 (00:25→09:28)
[2017-09-28] MEDS: VANCOMYCIN 500 MG VIAL (FOR ORAL USE ONLY) PO SCH ×5 (00:25→23:25)
[2017-09-28] MEDS: [UNRECOGNIZED DRUG - OTHER] IV-CENTRAL SCH (03:40)
[2017-09-28] MEDS: ETOPOSIDE IV-CENTRAL SCH (03:40)
[2017-09-28] MEDS: VINCRISTINE IV-CENTRAL SCH (03:40)
[2017-09-28] MEDS: DOXORUBICIN IV-CENTRAL SCH (03:40)
[2017-09-28 06:53] LABS: AUTOMATED NEUTROPHIL # 2.1 TH/MM3 (1.8-7.7); BASOPHIL % 0.1 % (0.0-2.0); EOSINOPHIL % 0.1 % (0.0-4.0); HEMATOCRIT 27.9 % (39.0-51.0); HEMOGLOBIN 9.3 GM/DL (13.0-17.0); INTERNATIONAL NORMALIZED RATIO 1.9 RATIO; LYMPH % 5.5 % (9.0-44.0); LYMPHOCYTE # 0.1 TH/MM3 (1.0-4.8); MEAN CELL VOLUME 79.8 FL (80.0-100.0); MEAN CORPUSCULAR HEMOGLOBIN 26.6 PG (27.0-34.0); MEAN CORPUSCULAR HGB CONC 33.3 % (32.0-36.0); MEAN PLATELET VOLUME 7.5 FL (7.0-11.0); MONO % 1.9 % (0.0-8.0); NEUT % 92.4 % (16.0-70.0); PLATELET COUNT 210 TH/MM3 (150-450); PROTHROMBIN TIME - PATIENT 19.4 SEC (9.8-11.6); RED BLOOD COUNT 3.49 MIL/MM3 (4.50-5.90); RED CELL DISTRIBUTION WIDTH 19.2 % (11.6-17.2); WHITE BLOOD COUNT 2.2 TH/MM3 (4.0-11.0)
[2017-09-28 07:11] LABS: CREATININE 0.77 MG/DL (0.60-1.30)
[2017-09-28] MEDS ORDERED: NIFEdipine 90 MG SUSTAINED RELEASE TAB PO SCH (09:00)
[2017-09-28] MEDS: SODIUM CHLORIDE 0.9% FLUSH 10 ML FLUSH IV FLUSH SCH ×3 (09:00→20:28)
[2017-09-28] MEDS: predniSONE 50 MG TAB PO SCH ×2 (09:26→20:26)
[2017-09-28] MEDS: predniSONE 10 MG TAB PO SCH ×2 (09:26→20:26)
[2017-09-28] MEDS: LACTOBACILLUS ACIDOPHILUS TAB PO SCH ×3 (09:27→18:20)
[2017-09-28] MEDS: NIFEdipine 60 MG SUSTAINED RELEASE TAB PO SCH (09:27)
[2017-09-28] MEDS: MAGNESIUM OXIDE 400 MG TAB PO SCH (09:27)
[2017-09-28] MEDS: POTASSIUM CHLORIDE 10 MEQ CONTROLLED RELEASE TAB PO SCH ×2 (09:27→20:27)
--- NOTE | 2017-09-28 11:29 | HHI.PR ---
Subjective Remarks Denies complaints. No dyspnea or pain. Objective Vitals Vital Signs Date Time Temp Pulse Resp B/P (MAP) Pulse Ox O2 Delivery O2 Flow Rate FiO2 09/28/17 09:33 97.5 66 18 105/66 (79) 98 09/28/17 08:26 64 09/28/17 06:00 97.6 69 17 106/69 (81) 100 09/28/17 04:07 68 09/28/17 00:23 97.7 66 18 103/64 (77) 100 09/28/17 00:05 68 09/27/17 21:48 21 09/27/17 20:20 Room Air 09/27/17 20:19 98.5 67 18 106/65 (79) 100 09/27/17 20:13 67 09/27/17 16:50 97.8 58 18 108/59 (75) 99 09/27/17 12:00 98.0 68 18 112/64 (80) 99 09/27/17 11:42 Room Air I/O 09/27/17 09/27/17 09/27/17 09/28/17 09/28/17 09/28/17 07:00 15:00 23:00 07:00 15:00 23:00 Intake Total 500 ml 100 ml 740 ml Output Total 350 ml 615 ml 400 ml Balance 150 ml 100 ml 125 ml -400 ml Intake Oral 500 ml 640 ml IV Total 100 ml 100 ml Output Urine Total 350 ml 615 ml 400 ml # Bowel Movements 1 Result Diagram: 09/28/1720 09/28/17 0620 Objective Remarks GENERAL: Cachectic chronically ill appearing -E[place]ian Egyptian male patient. SKIN: Warm and dry. HEAD: Normocephalic. EYES: No scleral icterus. No injection or drainage. NECK: Supple, trachea midline. No JVD or lymphadenopathy. CARDIOVASCULAR: Regular rate and rhythm without murmurs, gallops, or rubs. RESPIRATORY: Breath sounds equal bilaterally. No accessory muscle use. GASTROINTESTINAL: Abdomen soft, non-tender, nondistended. EXTREMITIES: No pedal edema. NEUROLOGICAL: Awake, alert, and oriented x 3. Non-focal. Procedures None. 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 difficile colitis ICD Code: A04.7 - Enterocolitis due to Clostridium difficile Status: Resolved (7) Sepsis ICD Code: A41.9 - Sepsis, unspecified organism (8) Debility ICD Code: R53.81 - Other malaise Status: Acute (9) Atrial fibrillation with RVR ICD Code: I48.91 - Unspecified atrial fibrillation (10) Sepsis due to methicillin resistant Staphylococcus aureus (MRSA) ICD Code: A41.02 - Sepsis due to Methicillin resistant Staphylococcus aureus Assessment and Plan Mr. Werner is a 47-year-old male patient with a known medical history of non- Hodgkin B-cell lymphoma, HTN and history of PE who presented to the ED with complaints of generalized weakness, nausea, vomiting and cough x 1 week. Sepsis, MRSA tricuspid valve endocarditis, MRSA bacteremia, bilateral pneumonia - - s/p Port removal 09/10. -Status post cefepime and Zithromax course -2-D echocardiogram with tricuspid valve vegetation - ID is following-Vancomycin for 6 weeks through October 26 -C. difficile colitis On by mouth vancomycin per ID - until roughly Sep 26. Lactinex. Decreasing frequency of stools overnight. 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 Appreciate cardiology input with Dr. devine. Continue by mouth Cardizem. Microcytic hypochromic anemia: Hemoglobin 6.6/Hematocrit 19.6 on presentation. Hemoccult negative. s/p 2 units PRBC -Hb improved to 9 - monitor H&H Severe protein calorie malnutrition due to the colitis, chronically ill, poor appetite - cont ensure to diet. Hypokalemia: Due to GI loss. repeat BMP a.m. Hypertension, chronic: BP running a little lower, decrease procardia xl to 60 mg daily. 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 cont Warfarin - monitor INR. pharmacy following for coumadin management Debilitation -Continue PT which patient is not very compliant with. Patient encouraged to work with PT. DVT Prophylaxis: SCDs. on coumadin Discharge Planning DC to SNF when chemotherapy complete. Problem Qualifiers (1) Non-Hodgkin lymphoma: Qualified Codes: C83.38 - Diffuse large b-cell lymphoma, lymph nodes of multiple sites (2) Anemia: Qualified Codes: D64.9 - Anemia, unspecified (3) Sepsis: Qualified Codes: A41.02 - Sepsis due to methicillin resistant Staphylococcus aureus Arminda Diehl MD Sep 28, 2017 11:29
[2017-09-28] MEDS: DRONABINOL 2.5 MG CAP PO SCH ×2 (11:36→18:20)
[2017-09-28] MEDS: predniSONE 1 MG TAB PO SCH ×2 (11:36→20:26)
--- NOTE | 2017-09-28 13:35 | PD.ONC.PN ---
Subjective Subjective Remarks Afebrile overnight. Patient resting in bed. Denies diarrhea. No complaints. Objective Data Date Time Temp Pulse Resp B/P (MAP) Pulse Ox O2 Delivery O2 Flow Rate FiO2 09/28/17 11:38 97.6 66 20 124/71 (88) 100 09/28/17 09:33 97.5 66 18 105/66 (79) 98 09/28/17 08:26 64 09/28/17 06:00 97.6 69 17 106/69 (81) 100 09/28/17 04:07 68 09/28/17 00:23 97.7 66 18 103/64 (77) 100 09/28/17 00:05 68 09/27/17 21:48 21 09/27/17 20:20 Room Air 09/27/17 20:19 98.5 67 18 106/65 (79) 100 09/27/17 20:13 67 09/27/17 16:50 97.8 58 18 108/59 (75) 99 09/28/17 09/28/17 09/28/17 07:00 15:00 23:00 Output Total 400 ml Balance -400 ml Result Diagram: 09/28/17 0620 09/28/17 0620 Laboratory Results Laboratory Tests Test 09/28/17 06:20 White Blood Count 2.2 TH/MM3 Red Blood Count 3.49 MIL/MM3 Hemoglobin 9.3 GM/DL Hematocrit 27.9 % Mean Corpuscular Volume 79.8 FL Mean Corpuscular Hemoglobin 26.6 PG Mean Corpuscular Hemoglobin Concent 33.3 % Red Cell Distribution Width 19.2 % Platelet Count 210 TH/MM3 Mean Platelet Volume 7.5 FL Neutrophils (%) (Auto) 92.4 % Lymphocytes (%) (Auto) 5.5 % Monocytes (%) (Auto) 1.9 % Eosinophils (%) (Auto) 0.1 % Basophils (%) (Auto) 0.1 % Neutrophils # (Auto) 2.1 TH/MM3 Lymphocytes # (Auto) 0.1 TH/MM3 Monocytes # (Auto) 0.0 TH/MM3 Eosinophils # (Auto) 0.0 TH/MM3 Basophils # (Auto) 0.0 TH/MM3 CBC Comment DIFF FINAL Differential Comment Prothrombin Time 19.4 SEC Prothromb Time International Ratio 1.9 RATIO Creatinine 0.77 MG/DL Estimat Glomerular Filtration Rate 130 ML/MIN Administered Medications Medications (Trade) Dose Ordered Sig/Shyla Route PRN Reason Start Time Stop Time Status Last Admin Dose Admin Sodium Chloride (NS Flush) 2 ml UNSCH PRN IV FLUSH FLUSH AFTER USING IV ACCESS 09/06/17 13:00 09/08/17 22:44 Sodium Chloride (NS Flush) 2 ml BID IV FLUSH 09/06/17 21:00 09/28/17 09:27 Acetaminophen (Tylenol) 650 mg Q4H PRN PO headache, fever, pain 1-4 09/06/17 13:00 09/06/17 19:41 Ondansetron HCl (Zofran Inj) 4 mg Q6H PRN IVP NAUSEA OR VOMITING 09/06/17 13:00 09/21/17 19:40 Dronabinol (Marinol) 2.5 mg BID@11,16 PO 09/07/17 11:00 09/28/17 11:36 Lactobacillus Acidophilus (Lactinex) 1 tab TID PO 09/11/17 09:00 09/28/17 11:35 Potassium Chloride/Sodium Chloride 1,000 ml @ 42 mls/hr [id number] IV 09/14/17 15:15 09/26/17 18:13 Vancomycin HCl (VANCOMYCIN for oral use only) 500 mg Q6H PO 09/16/17 18:00 09/28/17 11:36 Metronidazole 100 ml @ 100 mls/hr Q8H IV 09/16/17 17:00 09/28/17 09:28 Sodium Chloride (NS Flush) See Protocol DAILY IV FLUSH 09/19/17 09:00 09/23/17 07:45 Heparin Sodium (Porcine) (Heparin Central Flush) See Protocol DAILY IV FLUSH 09/19/17 09:00 09/19/17 12:20 Magnesium Oxide (Mag-Ox) 400 mg DAILY PO 09/19/17 09:00 09/28/17 09:27 Warfarin Sodium (Coumadin) 1 mg DAILY@1600 PO 09/20/17 16:00 Future hold 09/27/17 16:00 Diltiazem HCl (Cardizem) 30 mg Q6HR PO 09/22/17 00:00 09/28/17 11:36 Potassium Chloride (KCl) 10 meq Q12HR PO 09/22/17 21:00 09/28/17 09:27 Etoposide 95 mg/ Doxorubicin HCl 19 mg/Vincristine Sulfate 0.76 mg/ Sodium Chloride 515.01 ml @ 21.459 mls/hr Q24H IV-CENTRAL 09/24/17 14:00 09/28/17 13:59 09/28/17 03:40 Granisetron HCl (Kytril Inj) 1 mg Q24H IV PUSH 09/24/17 13:30 09/28/17 13:31 09/27/17 20:21 Prednisone (Deltasone) 100 mg Q12HR PO 09/24/17 11:00 09/28/17 21:01 09/28/17 09:26 Prednisone (Deltasone) 10 mg Q12HR PO 09/24/17 11:00 09/28/17 21:01 09/28/17 09:26 Prednisone (Deltasone) 4 mg Q12HR PO 09/24/17 11:00 09/28/17 21:01 09/28/17 11:36 Vancomycin HCl 1250 mg/Sodium Chloride 262.5 ml @ 250 mls/hr Q24H IV 09/25/17 21:00 09/27/17 22:32 Nifedipine (Procardia Xl) 60 mg DAILY PO 09/28/17 09:30 09/28/17 09:27 Objective Remarks GENERAL: deconditioned young man, lying supine in bed watching TV SKIN: Warm and dry. HEAD: Normocephalic. EYES: No injection or drainage. NECK: Supple, trachea midline. CARDIOVASCULAR: Regular rate and rhythm RESPIRATORY: Breath sounds equal bilaterally. No accessory muscle use. GASTROINTESTINAL: Abdomen soft, non-tender, nondistended. EXTREMITIES: No cyanosis NEUROLOGICAL: awake and alert, normal speech. Assessment/Plan Problem List: (1) Non-Hodgkin lymphoma ICD Codes: C85.90 - Non-Hodgkin lymphoma, unspecified, unspecified site Status: Acute Plan: --09/21: Rituxan started and then stopped as patient developed a.fib w/ RVR --09/22: cardiology consulted and cleared to resume chemotherapy --09/23: Rituxan rechallenged successfully --09/24: EPOCH D1 --09/25:EPOCH D2 --09/26:EPOCH D3 --09/28:EPOCH D4 started at 0300 (2) Sepsis ICD Codes: A41.9 - Sepsis, unspecified organism Plan: --ID following --Most recent blood cultures show no growth --++ vanco, --echo on 09/12 showed vegetation (3) Normocytic anemia ICD Codes: D64.9 - Anemia, unspecified Status: Acute Plan: --monitor and transfuse as needed. (4) Pulmonary emboli ICD Codes: I26.99 - Other pulmonary embolism without acute cor pulmonale Status: Chronic Plan: --on Coumadin (5) C. difficile colitis ICD Codes: A04.7 - Enterocolitis due to Clostridium difficile Status: Resolved Plan: --on po vancomycin (6) Atrial fibrillation with RVR ICD Codes: I48.91 - Unspecified atrial fibrillation Plan: --on PO Cardizem, rate controlled. Assessment 47y/o male with high-grade diffuse large B-cell lymphoma admitted for pneumonia and nausea/vomiting as well as anemia. History of pulmonary embolism currently on anticoagulation. Hypertension. Protein-calorie malnutrition. Plan 1. complete EPOCH early tomorrow AM 2. start Neupogen 24 hours after chemotherapy, will need 7 days/doses 3. ok to go to rehab after chemotherapy finishes tomorrow as long as they are able to provide IV antibiotics and Neupogen Attending Statement The exam, history, and the medical decision-making described in the above note were completed with the assistance of the mid-level provider. I reviewed and agree with the findings presented. I attest that I had a [id number] encounter with the patient on the same day, and personally performed and documented my assessment and findings in the medical record. Still weak. Diarrhea improved. No abdominal pain. Will complete chemo EPOCH tomorrow. WIll need neupogen 24 hour after completion of chemo. Problem Qualifiers (1) Non-Hodgkin lymphoma: Qualified Codes: C83.38 - Diffuse large b-cell lymphoma, lymph nodes of multiple sites (2) Sepsis: Qualified Codes: A41.02 - Sepsis due to methicillin resistant Staphylococcus aureus Brenda Platt Sep 28, 2017 13:35 Ruslan Connelly MD Sep 28, 2017 17:08
--- NOTE | 2017-09-28 13:53 | PD.CARD.PN ---
Subjective Subjective Remarks No CP or SOB, no significant arrhythmias Objective Medications Current Medications Medications (Trade) Dose Ordered Sig/Shyal Route Start Time Stop Time Status Last Admin (NS Flush) 2 ml UNSCH PRN IV FLUSH 09/06/17 13:00 09/08/17 22:44 (NS Flush) 2 ml BID IV FLUSH 09/06/17 21:00 09/28/17 09:27 (Tylenol) 650 mg Q4H PRN PO 09/06/17 13:00 09/06/17 19:41 (Zofran Inj) 4 mg Q6H PRN IVP 09/06/17 13:00 09/21/17 19:40 (Reglan Inj) 5 mg Q6H PRN IV PUSH 09/06/17 13:00 (Restoril) 15 mg HS PRN PO 09/06/17 13:00 (Narcan Inj) 0.4 mg UNSCH PRN IV PUSH 09/06/17 13:00 (Milk Of Magnesia Liq) 30 ml Q12H PRN PO 09/06/17 13:00 (Senokot) 17.2 mg Q12H PRN PO 09/06/17 13:00 (Dulcolax Supp) 10 mg DAILY PRN RECTAL 09/06/17 13:00 (Lactulose Liq) 30 ml DAILY PRN PO 09/06/17 13:00 (Duoneb Neb) 1 ampule Q4HR NEB PRN NEB 09/06/17 15:00 (Marinol) 2.5 mg BID@11,16 PO 09/07/17 11:00 09/28/17 11:36 Pharmacy Profile Note 0 ml @ 0 mls/hr UNSCH OTHER 09/07/17 22:00 Pharmacy Profile Note 0 ml @ 0 mls/hr UNSCH OTHER 09/09/17 14:30 (Lactinex) 1 tab TID PO 09/11/17 09:00 09/28/17 11:35 Potassium Chloride/Sodium Chloride 1,000 ml @ 42 mls/hr [id number] IV 09/14/17 15:15 09/26/17 18:13 (VANCOMYCIN for oral use only) 500 mg Q6H PO 09/16/17 18:00 09/28/17 11:36 Metronidazole 100 ml @ 100 mls/hr Q8H IV 09/16/17 17:00 09/28/17 09:28 (NS Flush) See Protocol DAILY IV FLUSH 09/19/17 09:00 09/23/17 07:45 (NS Flush) See Protocol UNSCH PRN IV FLUSH 09/18/17 15:15 (Heparin Central Flush) See Protocol DAILY IV FLUSH 09/19/17 09:00 09/19/17 12:20 (Heparin Central Flush) See Protocol UNSCH PRN IV FLUSH 09/18/17 15:15 (NS Flush) UNSCH PRN IV FLUSH 09/18/17 15:15 (Mag-Ox) 400 mg DAILY PO 09/19/17 09:00 09/28/17 09:27 (Coumadin) 1 mg DAILY@1600 PO 09/20/17 16:00 Future hold 09/27/17 16:00 (Cardizem) 30 mg Q6HR PO 09/22/17 00:00 09/28/17 11:36 (KCl) 10 meq Q12HR PO 09/22/17 21:00 09/28/17 09:27 Etoposide 95 mg/ Doxorubicin HCl 19 mg/Vincristine Sulfate 0.76 mg/ Sodium Chloride 515.01 ml @ 21.459 mls/hr Q24H IV-CENTRAL 09/24/17 14:00 09/28/17 13:59 09/28/17 03:40 Cyclophosphamide 1425 mg/Sodium Chloride 500 ml @ 500 mls/hr ONCE ONCE IV 09/28/17 14:00 09/28/17 14:59 (Deltasone) 100 mg Q12HR PO 09/24/17 11:00 09/28/17 21:01 09/28/17 09:26 (Deltasone) 10 mg Q12HR PO 09/24/17 11:00 09/28/17 21:01 09/28/17 09:26 (Deltasone) 4 mg Q12HR PO 09/24/17 11:00 09/28/17 21:01 09/28/17 11:36 Vancomycin HCl 1250 mg/Sodium Chloride 262.5 ml @ 250 mls/hr Q24H IV 09/25/17 21:00 09/27/17 22:32 Miscellaneous Information SPECIFIC LAB TO BE SILVANO... ONCE ONCE .XX 09/28/17 20:45 09/28/17 20:46 (Procardia Xl) 60 mg DAILY PO 09/28/17 09:30 09/28/17 09:27 Vital Signs / I&O Vital Signs Date Time Temp Pulse Resp B/P (MAP) Pulse Ox O2 Delivery O2 Flow Rate FiO2 09/28/17 11:38 97.6 66 20 124/71 (88) 100 09/28/17 09:33 97.5 66 18 105/66 (79) 98 09/28/17 08:26 64 09/28/17 06:00 97.6 69 17 106/69 (81) 100 09/28/17 04:07 68 09/28/17 00:23 97.7 66 18 103/64 (77) 100 09/28/17 00:05 68 09/27/17 21:48 21 09/27/17 20:20 Room Air 09/27/17 20:19 98.5 67 18 106/65 (79) 100 09/27/17 20:13 67 09/27/17 16:50 97.8 58 18 108/59 (75) 99 I/O 09/27/17 09/27/17 09/27/17 09/28/17 09/28/17 09/28/17 07:00 15:00 23:00 07:00 15:00 23:00 Intake Total 500 ml 100 ml 740 ml Output Total 350 ml 615 ml 400 ml Balance 150 ml 100 ml 125 ml -400 ml Intake Oral 500 ml 640 ml IV Total 100 ml 100 ml Output Urine Total 350 ml 615 ml 400 ml # Bowel Movements 1 Physical Exam GENERAL: In NAD SKIN: Warm and dry. HEAD: Normocephalic. EYES: No scleral icterus. No injection or drainage. NECK: Supple, trachea midline. No JVD or lymphadenopathy. CARDIOVASCULAR: Regular rate and rhythm without murmurs, gallops, or rubs. RESPIRATORY: Breath sounds equal bilaterally. No accessory muscle use. GASTROINTESTINAL: Abdomen soft, non-tender, nondistended. MUSCULOSKELETAL: No cyanosis, or edema. Laboratory Laboratory Tests Test 09/28/17 06:20 White Blood Count 2.2 TH/MM3 Red Blood Count 3.49 MIL/MM3 Hemoglobin 9.3 GM/DL Hematocrit 27.9 % Mean Corpuscular Volume 79.8 FL Mean Corpuscular Hemoglobin 26.6 PG Mean Corpuscular Hemoglobin Concent 33.3 % Red Cell Distribution Width 19.2 % Platelet Count 210 TH/MM3 Mean Platelet Volume 7.5 FL Neutrophils (%) (Auto) 92.4 % Lymphocytes (%) (Auto) 5.5 % Monocytes (%) (Auto) 1.9 % Eosinophils (%) (Auto) 0.1 % Basophils (%) (Auto) 0.1 % Neutrophils # (Auto) 2.1 TH/MM3 Lymphocytes # (Auto) 0.1 TH/MM3 Monocytes # (Auto) 0.0 TH/MM3 Eosinophils # (Auto) 0.0 TH/MM3 Basophils # (Auto) 0.0 TH/MM3 CBC Comment DIFF FINAL Differential Comment Prothrombin Time 19.4 SEC Prothromb Time International Ratio 1.9 RATIO Creatinine 0.77 MG/DL Estimat Glomerular Filtration Rate 130 ML/MIN Assessment and Plan Problem List: (1) Atrial fibrillation with RVR ICD Codes: I48.91 - Unspecified atrial fibrillation (2) Non-Hodgkin lymphoma ICD Codes: C85.90 - Non-Hodgkin lymphoma, unspecified, unspecified site Status: Acute (3) Debility ICD Codes: R53.81 - Other malaise Status: Acute (4) Hypertension ICD Codes: I10 - Essential (primary) hypertension (5) Anemia ICD Codes: D64.9 - Anemia, unspecified Status: Acute Assessment and Plan No new cardiac issues, remains stable from cardiac standpoint. No recurrent a fib with Rituxan. Tele with SR and PVCs. Continue current program. Continue monitoring on tele. Will continue PO diltiazem, use IV diltiazem if there is recurrent a fib with RVR. Increase activity. Problem Qualifiers (1) Non-Hodgkin lymphoma: Qualified Codes: C83.38 - Diffuse large b-cell lymphoma, lymph nodes of multiple sites (2) Anemia: Qualified Codes: D64.9 - Anemia, unspecified Mayra Azul MD Sep 28, 2017 13:53
[2017-09-28] MEDS ORDERED: SODIUM CHLORID 0.9% IV ONE (14:00)
[2017-09-28] MEDS ORDERED: CYCLOPHOSPHAMIDE IV ONE (14:00)
--- NOTE | 2017-09-28 16:10 | HHI.IDPN ---
Subjective Subjective Remarks no abd pain diarrhea resolved afebrile ANC 2100 Antibiotics vanco IV vanco PO flagyl Allergies: Coded Allergies: Milk Containing Products (Verified Allergy, Mild, diarrhea, 06/11/17) Objective . Vital Signs Date Time Temp Pulse Resp B/P (MAP) Pulse Ox O2 Delivery O2 Flow Rate FiO2 09/28/17 11:38 97.6 66 20 124/71 (88) 100 09/28/17 09:33 97.5 66 18 105/66 (79) 98 09/28/17 08:26 64 09/28/17 06:00 97.6 69 17 106/69 (81) 100 09/28/17 04:07 68 09/28/17 00:23 97.7 66 18 103/64 (77) 100 09/28/17 00:05 68 09/27/17 21:48 21 09/27/17 20:20 Room Air 09/27/17 20:19 98.5 67 18 106/65 (79) 100 09/27/17 20:13 67 09/27/17 16:50 97.8 58 18 108/59 (75) 99 . Laboratory Tests Test 09/27/17 05:55 09/28/17 06:20 White Blood Count 2.9 TH/MM3 2.2 TH/MM3 Red Blood Count 3.61 MIL/MM3 3.49 MIL/MM3 Hemoglobin 9.6 GM/DL 9.3 GM/DL Hematocrit 29.1 % 27.9 % Mean Corpuscular Volume 80.5 FL 79.8 FL Mean Corpuscular Hemoglobin 26.6 PG 26.6 PG Mean Corpuscular Hemoglobin Concent 33.0 % 33.3 % Red Cell Distribution Width 19.6 % 19.2 % Platelet Count 225 TH/MM3 210 TH/MM3 Mean Platelet Volume 7.8 FL 7.5 FL Neutrophils (%) (Auto) 88.5 % 92.4 % Lymphocytes (%) (Auto) 7.2 % 5.5 % Monocytes (%) (Auto) 3.7 % 1.9 % Eosinophils (%) (Auto) 0.4 % 0.1 % Basophils (%) (Auto) 0.2 % 0.1 % Neutrophils # (Auto) 2.6 TH/MM3 2.1 TH/MM3 Lymphocytes # (Auto) 0.2 TH/MM3 0.1 TH/MM3 Monocytes # (Auto) 0.1 TH/MM3 0.0 TH/MM3 Eosinophils # (Auto) 0.0 TH/MM3 0.0 TH/MM3 Basophils # (Auto) 0.0 TH/MM3 0.0 TH/MM3 CBC Comment DIFF FINAL DIFF FINAL Differential Comment Laboratory Tests Test 09/27/17 05:55 09/28/17 06:20 Blood Urea Nitrogen 7 MG/DL Creatinine 0.81 MG/DL 0.77 MG/DL Random Glucose 129 MG/DL Total Protein 5.4 GM/DL Calcium Level 7.4 MG/DL Sodium Level 138 MEQ/L Potassium Level 3.5 MEQ/L Chloride Level 106 MEQ/L Carbon Dioxide Level 23.7 MEQ/L Anion Gap 8 MEQ/L Estimat Glomerular Filtration Rate 123 ML/MIN 130 ML/MIN Protein Corrected Calcium 8.3 MG/DL Imaging Last Impressions Chest X-Ray 09/18/17 0000 Signed Impressions: Service Date/Time: Monday, September 18, 2017 15:43 - CONCLUSION: 1. The left PICC line is in good position at the atrial junction. 2. Stable bilateral bibasilar airspace disease, left greater than right. 3. Probable trace left pleural effusion. Liang Peralta MD Upper Extremity Ultrasound 09/10/17 0000 Signed Impressions: Service Date/Time: August 13:56 - CONCLUSION: 1. Nonocclusive thrombus in the jugular vein. 2. The other vessels are patent. 3. Solid lobular mass in the supraclavicular region consistent with adenopathy in this patient with history of lymphoma. Goldy Suarez MD Port Line Revision 09/08/17 0000 Signed Impressions: Service Date/Time: Friday, September 08, 2017 00:00 - CONCLUSION: Uncomplicated port removal as above. Adama Briceño MD Chest CT 09/06/17 0000 Signed Impressions: Service Date/Time: Wednesday, September 06, 2017 15:57 - CONCLUSION: 1. Patchy bilateral air space consolidation in both lung bases. Differential diagnosis includes bronchopneumonia and aspiration. Small pleural effusions improved from April. 2. Extensive mediastinal adenopathy also improved from April. Travis Ruffin MD Physical Exam CONSTITUTIONAL/GENERAL: This is a thin poorly nourished chronically ill appearing patient, in no apparent distress. Looks better Breathes better , off O2 TUBES/LINES/DRAINS: SKIN: No jaundice, rashes, or lesions. Skin temperature appropriate. Not diaphoretic. Alopecia ENT: Hearing grossly normal. Nose without bleeding or purulent drainage. Oral mucosae w/o mucositis poor dentition CARDIOVASCULAR: Regular rate and rhythm without murmurs, gallops, or rubs. No JVD. Peripheral pulses symmetric. RESPIRATORY/CHEST: Symmetric, unlabored respirations. Clear to auscultation. Breath sounds equal bilaterally. No wheezes, rales, or rhonchi. GASTROINTESTINAL: Abdomen soft, non-tender, moderately distended. No hepato- splenomegaly, or palpable masses. No guarding. Bowel sounds present. MUSCULOSKELETAL: Extremities without clubbing, cyanosis, or edema. NEUROLOGICAL: Awake and alert. Motor and sensory grossly within normal limits. Follows commands. Clear speech. Moves all extremities. PSYCHIATRIC: No obvious anxiety/depression. no apparent hallucinations or other psychotic thought process. 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 Atypical PNA C.diff, - clinically resolved leukocytosis - resolved cont vanco x 6 weeks after blood clx clear (thrombus): thru October 26 keep level 15-20 cont PO vancomycin @ 500 x 14 days total dc flagyl IV will sign off re-consult if needed Kelsie Hong MD Sep 28, 2017 16:10
--- NOTE | 2017-09-28 16:13 | HHI.FF ---
Infusion Therapy Location of Infusion Therapy: [facility] IV Infusion Order Patient Information Patient Weight 66.1 kg Diagnosis: Diagnosis endocarditis Coded Allergies: Milk Containing Products (Verified Allergy, Mild, diarrhea, 06/11/17) Administer Medication Vancomycin q 24 hours 1250 mg IV Start Treatment: Sep 28, 2017 Stop Treatment: Oct 26, 2017 Additional Information Venous access: PICC Line Additional Instructions [x] Peripheral flush and dressing changes per protocol [x] Implanted port and central line analyst: * Implanted port: 10 ml Normal Saline followed by 5 ml Heparin 100 units/ml Heparin flush after each use and monthly to maintain. [] May leave port accessed during therapy. [] May leave peripheral site accessed for duration of therapy. [x] If patient has SOB or respiratory distress, check oxygen saturation. If less than 90% or clinical signs of respiratory distress, administer oxygen at 2 L/min. via nasal cannula and notify physician. [x] Anaphylaxis/Reaction orders: * Stop infusion. * Keep IV line open with saline flush. * Notify physician. * Monitor vital signs every 15 minutes until symptoms resolve. * Check Oxygen saturation; Oxygen at 2 L/min. via nasal cannula if less than 90% or clinical signs of respiratory distress. * Administer diphenhydramine (Benadryl) 25 mg IV STAT, (unless patient has received as pre-med). May repeat once, if necessary. * Solu-Cortef 250 mg IVP over 30-60 seconds, use 100 mg vials for each dissolution. * Epinephrine (1mg/1 ml) 0.3 mg subcutaneously or IVP now with any signs of respiratory distress. * Check with physician for new additional pre-med orders if patient is re- challenged or re-treated. [x] May remove PICC line when treatment complete, after confirming with Physician. [x] If the patient is admitted to the hospital, the ED, or transferred via [facility] , complete transfer form including medication reconciliation order sheet. Laboratory Tests Weekly Labs: CBC w/diff, Creatinine, Vancomycin Trough Kelsie Hong MD Sep 28, 2017 16:13
[2017-09-28] MEDS: WARFARIN SOD 1 MG TAB PO SCH (18:35)
[2017-09-28] MEDS: VANCOMYCIN INJ 1,250 MG in SODIUM CHLOR 0.9% 250 ML INJ 250 ML IV SCH (20:27)
[2017-09-28] MEDS ORDERED: PHARMACY ORDERED LAB ONE (20:45)
[2017-09-29] VITALS (10 sets, daily range): BP systolic 110–146; BP diastolic 62–77; PULSE 62–83; RESP 16–18; TEMP 97.3–97.9; O2SAT 92–100
[2017-09-29] MEDS: DILTIAZEM HCL 30 MG TAB PO SCH ×4 (05:37→23:57)
[2017-09-29] MEDS: VANCOMYCIN 500 MG VIAL (FOR ORAL USE ONLY) PO SCH ×3 (05:37→18:24)
[2017-09-29 06:23] LABS: INTERNATIONAL NORMALIZED RATIO 1.8 RATIO; PROTHROMBIN TIME - PATIENT 18.5 SEC (9.8-11.6)
[2017-09-29 06:32] LABS: BICARBONATE 24.2 MEQ/L (21.0-32.0); CALCIUM 7.5 MG/DL (8.5-10.1); CREATININE 0.7 MG/DL (0.60-1.30)
[2017-09-29] MEDS: SODIUM CHLORIDE 0.9% FLUSH 10 ML FLUSH IV FLUSH SCH ×3 (07:13→20:57)
--- NOTE | 2017-09-29 07:57 | PD.ONC.PN ---
Subjective Subjective Remarks Tolerating chemo and will complete today. Diarrhea has improved. No CP/ palpitation. No SOB. No abdominal pain. Did not get out of bed yesterday. Objective Data Date Time Temp Pulse Resp B/P (MAP) Pulse Ox O2 Delivery O2 Flow Rate FiO2 09/29/17 07:36 93 Room Air 09/29/17 07:31 97.7 67 18 123/73 (90) 93 09/29/17 05:32 97.6 68 16 138/77 (97) 98 09/28/17 23:22 97.9 65 15 125/63 (83) 97 09/28/17 20:30 Room Air 09/28/17 20:30 64 09/28/17 20:12 97.6 65 16 105/62 (76) 100 09/28/17 18:21 97.5 62 18 126/70 (88) 99 09/28/17 18:17 Room Air 09/28/17 11:38 97.6 66 20 124/71 (88) 100 09/28/17 09:33 97.5 66 18 105/66 (79) 98 09/28/17 08:26 64 09/29/17 09/29/17 09/29/17 06:59 14:59 22:59 Intake Total 94 ml Output Total 700 ml Balance -606 ml Result Diagram: 09/28/17 0620 09/29/17 0530 Laboratory Results Laboratory Tests Test 09/28/17 19:35 09/29/17 05:30 Vancomycin Level Trough 20.5 MCG/ML Prothrombin Time 18.5 SEC Prothromb Time International Ratio 1.8 RATIO Blood Urea Nitrogen 10 MG/DL Creatinine 0.70 MG/DL Random Glucose 135 MG/DL Calcium Level 7.5 MG/DL Sodium Level 136 MEQ/L Potassium Level 3.0 MEQ/L Chloride Level 105 MEQ/L Carbon Dioxide Level 24.2 MEQ/L Anion Gap 7 MEQ/L Estimat Glomerular Filtration Rate 145 ML/MIN Administered Medications Medications (Trade) Dose Ordered Sig/Shyla Route PRN Reason Start Time Stop Time Status Last Admin Dose Admin Sodium Chloride (NS Flush) 2 ml UNSCH PRN IV FLUSH FLUSH AFTER USING IV ACCESS 09/06/17 13:00 09/08/17 22:44 Sodium Chloride (NS Flush) 2 ml BID IV FLUSH 09/06/17 21:00 09/28/17 20:28 Acetaminophen (Tylenol) 650 mg Q4H PRN PO headache, fever, pain 1-4 09/06/17 13:00 09/06/17 19:41 Ondansetron HCl (Zofran Inj) 4 mg Q6H PRN IVP NAUSEA OR VOMITING 09/06/17 13:00 09/21/17 19:40 Dronabinol (Marinol) 2.5 mg BID@11,16 PO 09/07/17 11:00 09/28/17 18:20 Lactobacillus Acidophilus (Lactinex) 1 tab TID PO 09/11/17 09:00 09/28/17 18:20 Potassium Chloride/Sodium Chloride 1,000 ml @ 42 mls/hr [id number] IV 09/14/17 15:15 09/26/17 18:13 Vancomycin HCl (VANCOMYCIN for oral use only) 500 mg Q6H PO 09/16/17 18:00 09/29/17 23:55 09/29/17 05:37 Sodium Chloride (NS Flush) See Protocol DAILY IV FLUSH 09/19/17 09:00 09/23/17 07:45 Heparin Sodium (Porcine) (Heparin Central Flush) See Protocol DAILY IV FLUSH 09/19/17 09:00 09/19/17 12:20 Magnesium Oxide (Mag-Ox) 400 mg DAILY PO 09/19/17 09:00 09/28/17 09:27 Warfarin Sodium (Coumadin) 1 mg DAILY@1600 PO 09/20/17 16:00 Future hold 09/28/17 18:35 Diltiazem HCl (Cardizem) 30 mg Q6HR PO 09/22/17 00:00 09/29/17 05:37 Potassium Chloride (KCl) 10 meq Q12HR PO 09/22/17 21:00 09/28/17 20:27 Vancomycin HCl 1250 mg/Sodium Chloride 262.5 ml @ 250 mls/hr Q24H IV 09/25/17 21:00 09/28/17 20:27 Nifedipine (Procardia Xl) 60 mg DAILY PO 09/28/17 09:30 09/28/17 09:27 Objective Remarks GENERAL: Well-nourished, well-developed patient. Weak. SKIN: Warm and dry. HEAD: Normocephalic. EYES: No scleral icterus. No injection or drainage. NECK: Supple, trachea midline. No JVD. Left supraclav LN smaller. LYMPHATIC: No adenopathy. Left axillary mass likely seroma. CARDIOVASCULAR: Regular rate and rhythm without murmurs. RESPIRATORY: Breath sounds equal bilaterally. No accessory muscle use. GASTROINTESTINAL: Abdomen soft, non-tender, nondistended. EXTREMITIES: No cyanosis, or edema. MUSCULOSKELETAL: Adequate muscle tone. NEUROLOGICAL: No obvious focal deficit. Awake, alert, and oriented x3. PSYCHIATRIC: Appropriate mood and affect; insight and judgment normal. Assessment/Plan Problem List: (1) Non-Hodgkin lymphoma ICD Codes: C85.90 - Non-Hodgkin lymphoma, unspecified, unspecified site Status: Acute Plan: --09/21: Rituxan started and then stopped as patient developed a.fib w/ RVR --09/22: cardiology consulted and cleared to resume chemotherapy --09/23: Rituxan rechallenged successfully --09/24: EPOCH D1 --09/25:EPOCH D2 --09/26:EPOCH D3 --09/28:EPOCH D4 started at 0300 --09/29 EPOCH to complete this afternoon. Start Neupogen 09/30. (2) Sepsis ICD Codes: A41.9 - Sepsis, unspecified organism Plan: --ID following --Most recent blood cultures show no growth --++ vanco, --echo on 09/12 showed vegetation (3) Normocytic anemia ICD Codes: D64.9 - Anemia, unspecified Status: Acute Plan: --monitor and transfuse as needed. (4) Pulmonary emboli ICD Codes: I26.99 - Other pulmonary embolism without acute cor pulmonale Status: Chronic Plan: --on Coumadin (5) C. difficile colitis ICD Codes: A04.7 - Enterocolitis due to Clostridium difficile Status: Resolved Plan: --on po vancomycin (6) Atrial fibrillation with RVR ICD Codes: I48.91 - Unspecified atrial fibrillation Plan: --on PO Cardizem, rate controlled. Assessment 47y/o male with high-grade diffuse large B-cell lymphoma admitted for pneumonia and nausea/vomiting as well as anemia. History of pulmonary embolism currently on anticoagulation. Hypertension. Protein-calorie malnutrition. Plan 1. complete EPOCH this afternoon 2. start Neupogen 24 hours after chemotherapy, will need 7 days/doses 3. ok to go to rehab after chemotherapy finishes as long as they are able to provide IV antibiotics and Neupogen 4. Antibiotics per ID. Problem Qualifiers (1) Non-Hodgkin lymphoma: Qualified Codes: C83.38 - Diffuse large b-cell lymphoma, lymph nodes of multiple sites (2) Sepsis: Qualified Codes: A41.02 - Sepsis due to methicillin resistant Staphylococcus aureus Ruslan Connelly MD Sep 29, 2017 07:57
[2017-09-29] MEDS: MAGNESIUM OXIDE 400 MG TAB PO SCH (09:22)
[2017-09-29] MEDS: LACTOBACILLUS ACIDOPHILUS TAB PO SCH ×3 (09:22→18:24)
[2017-09-29] MEDS: NIFEdipine 60 MG SUSTAINED RELEASE TAB PO SCH (09:22)
[2017-09-29] MEDS: POTASSIUM CHLORIDE 10 MEQ CONTROLLED RELEASE TAB PO SCH ×2 (09:22→20:57)
[2017-09-29 09:58] LABS: AUTOMATED NEUTROPHIL # 2.5 TH/MM3 (1.8-7.7); HEMATOCRIT 27.3 % (39.0-51.0); LYMPHOCYTE # 0.1 TH/MM3 (1.0-4.8); MEAN CELL VOLUME 78.4 FL (80.0-100.0); MEAN CORPUSCULAR HEMOGLOBIN 25.9 PG (27.0-34.0); MEAN PLATELET VOLUME 7.4 FL (7.0-11.0); MONO % 0.6 % (0.0-8.0); NEUT % 96.4 % (16.0-70.0); PLATELET COUNT 207 TH/MM3 (150-450); RED BLOOD COUNT 3.48 MIL/MM3 (4.50-5.90); RED CELL DISTRIBUTION WIDTH 19.3 % (11.6-17.2); WHITE BLOOD COUNT 2.6 TH/MM3 (4.0-11.0)
--- NOTE | 2017-09-29 10:49 | HHI.PR ---
Subjective Remarks Denies cp/sob, fevers, chills, nausea, vomiting or diarrhea. Objective Vitals Vital Signs Date Time Temp Pulse Resp B/P (MAP) Pulse Ox O2 Delivery O2 Flow Rate FiO2 09/29/17 08:30 97 21 09/29/17 07:36 93 Room Air 09/29/17 07:31 97.7 67 18 123/73 (90) 93 09/29/17 07:00 62 09/29/17 05:32 97.6 68 16 138/77 (97) 98 09/28/17 23:22 97.9 65 15 125/63 (83) 97 09/28/17 20:30 Room Air 09/28/17 20:30 64 09/28/17 20:12 97.6 65 16 105/62 (76) 100 09/28/17 18:21 97.5 62 18 126/70 (88) 99 09/28/17 18:17 Room Air 09/28/17 11:38 97.6 66 20 124/71 (88) 100 I/O 09/28/17 09/28/17 09/28/17 09/29/17 09/29/17 09/29/17 07:00 15:00 23:00 07:00 15:00 23:00 Intake Total 115 ml 1675.5 ml 94 ml 427 ml Output Total 400 ml 950 ml 700 ml Balance -400 ml 115 ml 725.5 ml -606 ml 427 ml Intake Oral 1080 ml IV Total 115 ml 595.5 ml 94 ml 427 ml Output Urine Total 400 ml 950 ml 700 ml # Bowel Movements 3 2 Result Diagram: 09/29/17 0920 09/29/17 0530 Imaging Last Impressions Chest X-Ray 09/18/17 0000 Signed Impressions: Service Date/Time: Monday, September 18, 2017 15:43 - CONCLUSION: 1. The left PICC line is in good position at the atrial junction. 2. Stable bilateral bibasilar airspace disease, left greater than right. 3. Probable trace left pleural effusion. Liang Peralta MD Upper Extremity Ultrasound 09/10/17 0000 Signed Impressions: Service Date/Time: August 13:56 - CONCLUSION: 1. Nonocclusive thrombus in the jugular vein. 2. The other vessels are patent. 3. Solid lobular mass in the supraclavicular region consistent with adenopathy in this patient with history of lymphoma. Goldy Suarez MD Port Line Revision 09/08/17 0000 Signed Impressions: Service Date/Time: Friday, September 08, 2017 00:00 - CONCLUSION: Uncomplicated port removal as above. Adama Briceño MD Chest CT 09/06/17 0000 Signed Impressions: Service Date/Time: Wednesday, September 06, 2017 15:57 - CONCLUSION: 1. Patchy bilateral air space consolidation in both lung bases. Differential diagnosis includes bronchopneumonia and aspiration. Small pleural effusions improved from April. 2. Extensive mediastinal adenopathy also improved from April. Travis Ruffin MD Objective Remarks GENERAL: Cachectic chronically ill appearing -[place]ian [place] male patient. SKIN: Warm and dry. HEAD: Normocephalic. EYES: No scleral icterus. No injection or drainage. NECK: Supple, trachea midline. No JVD or lymphadenopathy. CARDIOVASCULAR: Regular rate and rhythm without murmurs, gallops, or rubs. RESPIRATORY: Breath sounds equal bilaterally. No accessory muscle use. GASTROINTESTINAL: Abdomen soft, non-tender, nondistended. EXTREMITIES: No pedal edema. NEUROLOGICAL: Awake, alert, and oriented x 3. Non-focal. Procedures None. Medications and IVs Current Medications Medications (Trade) Dose Ordered Sig/Shyla Route Start Time Stop Time Status Last Admin (NS Flush) 2 ml UNSCH PRN IV FLUSH 09/06/17 13:00 09/08/17 22:44 (NS Flush) 2 ml BID IV FLUSH 09/06/17 21:00 09/29/17 09:23 (Tylenol) 650 mg Q4H PRN PO 09/06/17 13:00 09/06/17 19:41 (Zofran Inj) 4 mg Q6H PRN IVP 09/06/17 13:00 09/21/17 19:40 (Reglan Inj) 5 mg Q6H PRN IV PUSH 09/06/17 13:00 (Restoril) 15 mg HS PRN PO 09/06/17 13:00 (Narcan Inj) 0.4 mg UNSCH PRN IV PUSH 09/06/17 13:00 (Milk Of Magnesia Liq) 30 ml Q12H PRN PO 09/06/17 13:00 (Senokot) 17.2 mg Q12H PRN PO 09/06/17 13:00 (Dulcolax Supp) 10 mg DAILY PRN RECTAL 09/06/17 13:00 (Lactulose Liq) 30 ml DAILY PRN PO 09/06/17 13:00 (Duoneb Neb) 1 ampule Q4HR NEB PRN NEB 09/06/17 15:00 (Marinol) 2.5 mg BID@11,16 PO 09/07/17 11:00 09/28/17 18:20 Pharmacy Profile Note 0 ml @ 0 mls/hr UNSCH OTHER 09/07/17 22:00 Pharmacy Profile Note 0 ml @ 0 mls/hr UNSCH OTHER 09/09/17 14:30 (Lactinex) 1 tab TID PO 09/11/17 09:00 09/29/17 09:22 Potassium Chloride/Sodium Chloride 1,000 ml @ 42 mls/hr [id number] IV 09/14/17 15:15 09/26/17 18:13 (VANCOMYCIN for oral use only) 500 mg Q6H PO 09/16/17 18:00 09/29/17 23:55 09/29/17 05:37 (NS Flush) See Protocol DAILY IV FLUSH 09/19/17 09:00 09/23/17 07:45 (NS Flush) See Protocol UNSCH PRN IV FLUSH 09/18/17 15:15 (Heparin Central Flush) See Protocol DAILY IV FLUSH 09/19/17 09:00 09/19/17 12:20 (Heparin Central Flush) See Protocol UNSCH PRN IV FLUSH 09/18/17 15:15 (NS Flush) UNSCH PRN IV FLUSH 09/18/17 15:15 (Mag-Ox) 400 mg DAILY PO 09/19/17 09:00 09/29/17 09:22 (Coumadin) 1 mg DAILY@1600 PO 09/20/17 16:00 Future hold 09/28/17 18:35 (Cardizem) 30 mg Q6HR PO 09/22/17 00:00 09/29/17 05:37 (KCl) 10 meq Q12HR PO 09/22/17 21:00 09/29/17 09:22 Vancomycin HCl 1250 mg/Sodium Chloride 262.5 ml @ 250 mls/hr Q24H IV 09/25/17 21:00 09/28/17 20:27 (Procardia Xl) 60 mg DAILY PO 09/28/17 09:30 09/29/17 09:22 Filgrastim 300 mcg/Dextrose 25 ml @ 100 mls/hr DAILY@14 IV 09/30/17 14:00 10/07/17 13:59 (Coumadin) 1 mg ONCE@1600 ONCE PO 09/29/17 16:00 09/29/17 16:01 A/P Problem List: (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 difficile colitis ICD Code: A04.7 - Enterocolitis due to Clostridium difficile Status: Resolved (7) Sepsis ICD Code: A41.9 - Sepsis, unspecified organism (8) Debility ICD Code: R53.81 - Other malaise Status: Acute (9) Atrial fibrillation with RVR ICD Code: I48.91 - Unspecified atrial fibrillation (10) Sepsis due to methicillin resistant Staphylococcus aureus (MRSA) ICD Code: A41.02 - Sepsis due to Methicillin resistant Staphylococcus aureus Assessment and Plan Mr. Werner is a 47-year-old male patient with a known medical history of non- Hodgkin B-cell lymphoma, HTN and history of PE who presented to the ED with complaints of generalized weakness, nausea, vomiting and cough x 1 week. 1. Sepsis, MRSA tricuspid valve endocarditis, MRSA bacteremia, bilateral pneumonia - Patient underwent Port removal 09/10. - Status post cefepime and Zithromax course - 2-D echocardiogram with tricuspid valve vegetation - ID consulted and following. is following-Vancomycin for 6 weeks through October 26 2. C difficile diarrhea/colitis. - On po Vancomycin, IV Flagyl discontinued. Continue oral Vancomycin total for 14 days. Treatment completes today. - Diarrhea resolved. 3. 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 Starting on Neupogen tomorrow 09/30. OK to DC to rehab as per hematology as long as Neupogen and IV antibiotic can be provided at rehab. 4. Atrial fibrillation with rapid ventricular rate - Resolved and now back in normal sinus rhythm. Monitored on telemetry. Cardiology consulted - Dr Azul. Continue by mouth Cardizem. 5. Microcytic hypochromic anemia: - Hemoglobin 6.6/Hematocrit 19.6 on presentation. Hemoccult negative. - s/p 2 units PRBC -Hb improved to 9 - monitor H&H - 09/29 Hemoglobin stable at 9.0. 6. Severe protein calorie malnutrition due to the colitis - chronically ill, poor appetite - cont ensure to diet. - Continue Marinol. - Dietitian following. Will check phosphorus and magnesium in am. 7. Hypokalemia - Initially likely due to GI loss, however diarrhea resolved. - K 3.0 today - replace orally and monitor bmp. 8. Essential Hypertension: BP running a little lower, decrease procardia xl to 60 mg daily. - Procardia xl decreased to 60 mg po daily. 9. H/O PE, also has nonocclusive thrombus in jugular vein - Had massive PE requiring tPA in April 2017. cont Warfarin - monitor INR. pharmacy following for coumadin management - 09/29 INR subtherpeutic at 1.8. Pharmacy managing dose. 10. Debility. - Continue PT which patient is not very compliant with. Patient encouraged to work with PT. DVT Prophylaxis: SCDs. on coumadin Discharge Planning Patient will be able to be discharged to rehab only if rehab able to accommodate Neupogen and IV antibiotics. CM to assist. Patient will be ready for DC after chemotherapy today. Problem Qualifiers (1) Non-Hodgkin lymphoma: Qualified Codes: C83.38 - Diffuse large b-cell lymphoma, lymph nodes of multiple sites (2) Anemia: Qualified Codes: D64.9 - Anemia, unspecified (3) Sepsis: Qualified Codes: A41.02 - Sepsis due to methicillin resistant Staphylococcus aureus Bart Liz MD Sep 29, 2017 10:49
[2017-09-29] MEDS ORDERED: POTASSIUM CHLORIDE 10 MEQ CONTROLLED RELEASE TAB PO ONE (11:00)
[2017-09-29] MEDS: DRONABINOL 2.5 MG CAP PO SCH ×2 (11:53→15:27)
[2017-09-29] MEDS ORDERED: WHEEMIS3 (13:12)
--- NOTE | 2017-09-29 13:23 | HHI.FF ---
Face to Face Verification Diagnosis: (1) Sepsis due to methicillin resistant Staphylococcus aureus (MRSA) (2) Atrial fibrillation with RVR (3) Severe protein-calorie malnutrition (4) Endocarditis of tricuspid valve (5) Diffuse large B cell lymphoma Home Health Nursing Order: IV medication administration I have seen patient Jovani Werner on 09/29/17. My clinical findings support the need for the requested home health care services because: Limited ability to care for self Need for psychosocial assistance Impaired cognition/judgement Infection w/ risk of complications I certify that my clinical findings support that this patient is homebound because: Unsteady gait/balance Unsafe to leave home unassisted Unable to use public transportation Bart Liz MD Sep 29, 2017 13:23
[2017-09-29] MEDS: WARFARIN SOD 1 MG TAB PO SCH (15:27)
[2017-09-29] MEDS ORDERED: EPIN1INJ21 SQ (15:51)
[2017-09-29] MEDS ORDERED: SOLU250I IV PUSH (15:51)
[2017-09-29] MEDS ORDERED: EPIN1INJ21 IV PUSH (15:51)
[2017-09-29] MEDS ORDERED: VANC10IN IV (15:51)
[2017-09-29] MEDS ORDERED: WARFARIN SOD 1 MG TAB PO ONE (16:00)
--- NOTE | 2017-09-29 20:33 | PD.CARD.PN ---
Subjective Subjective Remarks No CP or SOB, feels fine Objective Medications Current Medications Medications (Trade) Dose Ordered Sig/Shyla Route Start Time Stop Time Status Last Admin (NS Flush) 2 ml UNSCH PRN IV FLUSH 09/06/17 13:00 09/08/17 22:44 (NS Flush) 2 ml BID IV FLUSH 09/06/17 21:00 09/29/17 09:23 (Tylenol) 650 mg Q4H PRN PO 09/06/17 13:00 09/06/17 19:41 (Zofran Inj) 4 mg Q6H PRN IVP 09/06/17 13:00 09/21/17 19:40 (Reglan Inj) 5 mg Q6H PRN IV PUSH 09/06/17 13:00 (Restoril) 15 mg HS PRN PO 09/06/17 13:00 (Narcan Inj) 0.4 mg UNSCH PRN IV PUSH 09/06/17 13:00 (Milk Of Magnesia Liq) 30 ml Q12H PRN PO 09/06/17 13:00 (Senokot) 17.2 mg Q12H PRN PO 09/06/17 13:00 (Dulcolax Supp) 10 mg DAILY PRN RECTAL 09/06/17 13:00 (Lactulose Liq) 30 ml DAILY PRN PO 09/06/17 13:00 (Duoneb Neb) 1 ampule Q4HR NEB PRN NEB 09/06/17 15:00 (Marinol) 2.5 mg BID@11,16 PO 09/07/17 11:00 09/29/17 15:27 Pharmacy Profile Note 0 ml @ 0 mls/hr UNSCH OTHER 09/07/17 22:00 Pharmacy Profile Note 0 ml @ 0 mls/hr UNSCH OTHER 09/09/17 14:30 (Lactinex) 1 tab TID PO 09/11/17 09:00 09/29/17 18:24 Potassium Chloride/Sodium Chloride 1,000 ml @ 42 mls/hr [id number] IV 09/14/17 15:15 09/26/17 18:13 (VANCOMYCIN for oral use only) 500 mg Q6H PO 09/16/17 18:00 09/29/17 23:55 09/29/17 18:24 (NS Flush) See Protocol DAILY IV FLUSH 09/19/17 09:00 09/23/17 07:45 (NS Flush) See Protocol UNSCH PRN IV FLUSH 09/18/17 15:15 (Heparin Central Flush) See Protocol DAILY IV FLUSH 09/19/17 09:00 09/19/17 12:20 (Heparin Central Flush) See Protocol UNSCH PRN IV FLUSH 09/18/17 15:15 (NS Flush) UNSCH PRN IV FLUSH 09/18/17 15:15 (Mag-Ox) 400 mg DAILY PO 09/19/17 09:00 09/29/17 09:22 (Coumadin) 1 mg DAILY@1600 PO 09/20/17 16:00 Future hold 09/29/17 15:27 (Cardizem) 30 mg Q6HR PO 09/22/17 00:00 09/29/17 18:24 (KCl) 10 meq Q12HR PO 09/22/17 21:00 09/29/17 09:22 Vancomycin HCl 1250 mg/Sodium Chloride 262.5 ml @ 250 mls/hr Q24H IV 09/25/17 21:00 09/28/17 20:27 (Procardia Xl) 60 mg DAILY PO 09/28/17 09:30 09/29/17 09:22 Filgrastim 300 mcg/Dextrose 25 ml @ 100 mls/hr DAILY@14 IV 09/30/17 14:00 10/07/17 13:59 Vital Signs / I&O Vital Signs Date Time Temp Pulse Resp B/P (MAP) Pulse Ox O2 Delivery O2 Flow Rate FiO2 09/29/17 15:25 97.3 71 18 123/74 (90) 100 09/29/17 11:50 97.7 68 18 110/62 (78) 92 09/29/17 08:30 97 21 09/29/17 07:36 93 Room Air 09/29/17 07:31 97.7 67 18 123/73 (90) 93 09/29/17 07:00 62 09/29/17 05:32 97.6 68 16 138/77 (97) 98 09/28/17 23:22 97.9 65 15 125/63 (83) 97 I/O 09/28/17 09/28/17 09/28/17 09/29/17 09/29/1719/17 07:00 15:00 23:00 07:00 15:00 23:00 Intake Total 115 ml 1675.5 ml 94 ml 1080 ml 1680 ml Output Total 400 ml 950 ml 700 ml 825 ml Balance -400 ml 115 ml 725.5 ml -606 ml 1080 ml 855 ml Intake Oral 1080 ml 1680 ml IV Total 115 ml 595.5 ml 94 ml 1080 ml Output Urine Total 400 ml 950 ml 700 ml 825 ml # Voids 2 # Bowel Movements 3 2 3 Physical Exam GENERAL: In NAD SKIN: Warm and dry. HEAD: Normocephalic. EYES: No scleral icterus. No injection or drainage. NECK: Supple, trachea midline. No JVD or lymphadenopathy. CARDIOVASCULAR: Regular rate and rhythm without murmurs, gallops, or rubs. RESPIRATORY: Breath sounds equal bilaterally. No accessory muscle use. GASTROINTESTINAL: Abdomen soft, non-tender, nondistended. MUSCULOSKELETAL: No cyanosis, or edema. Laboratory Laboratory Tests Test 09/29/17 05:30 09/29/17 09:20 Prothrombin Time 18.5 SEC Prothromb Time International Ratio 1.8 RATIO Blood Urea Nitrogen 10 MG/DL Creatinine 0.70 MG/DL Random Glucose 135 MG/DL Calcium Level 7.5 MG/DL Sodium Level 136 MEQ/L Potassium Level 3.0 MEQ/L Chloride Level 105 MEQ/L Carbon Dioxide Level 24.2 MEQ/L Anion Gap 7 MEQ/L Estimat Glomerular Filtration Rate 145 ML/MIN White Blood Count 2.6 TH/MM3 Red Blood Count 3.48 MIL/MM3 Hemoglobin 9.0 GM/DL Hematocrit 27.3 % Mean Corpuscular Volume 78.4 FL Mean Corpuscular Hemoglobin 25.9 PG Mean Corpuscular Hemoglobin Concent 33.0 % Red Cell Distribution Width 19.3 % Platelet Count 207 TH/MM3 Mean Platelet Volume 7.4 FL Neutrophils (%) (Auto) 96.4 % Lymphocytes (%) (Auto) 3.0 % Monocytes (%) (Auto) 0.6 % Eosinophils (%) (Auto) 0.0 % Basophils (%) (Auto) 0.0 % Neutrophils # (Auto) 2.5 TH/MM3 Lymphocytes # (Auto) 0.1 TH/MM3 Monocytes # (Auto) 0.0 TH/MM3 Eosinophils # (Auto) 0.0 TH/MM3 Basophils # (Auto) 0.0 TH/MM3 CBC Comment DIFF FINAL Differential Comment Assessment and Plan Problem List: (1) Atrial fibrillation with RVR ICD Codes: I48.91 - Unspecified atrial fibrillation (2) Non-Hodgkin lymphoma ICD Codes: C85.90 - Non-Hodgkin lymphoma, unspecified, unspecified site Status: Acute (3) Debility ICD Codes: R53.81 - Other malaise Status: Acute (4) Hypertension ICD Codes: I10 - Essential (primary) hypertension (5) Anemia ICD Codes: D64.9 - Anemia, unspecified Status: Acute Assessment and Plan No significant arrhythmias. Tolerating chemo well. Continue monitoring on tele. Continue PO diltiazem, use IV diltiazem if there is recurrent a fib with RVR. Increase activity. Problem Qualifiers (1) Non-Hodgkin lymphoma: Qualified Codes: C83.38 - Diffuse large b-cell lymphoma, lymph nodes of multiple sites (2) Anemia: Qualified Codes: D64.9 - Anemia, unspecified Mayra Azul MD Sep 29, 2017 20:33
[2017-09-29] MEDS: VANCOMYCIN INJ 1,250 MG in SODIUM CHLOR 0.9% 250 ML INJ 250 ML IV SCH (20:57)
[2017-09-30] VITALS (8 sets, daily range): BP systolic 125–141; BP diastolic 71–81; PULSE 71–81; RESP 16–18; TEMP 97.7–98.1; O2SAT 98–100
[2017-09-30] MEDS: NS + KCL 40 MEQ INJ 1,000 ML IV SCH (03:34)
[2017-09-30 05:25] LABS: HEMATOCRIT 26.6 % (39.0-51.0); HEMOGLOBIN 8.7 GM/DL (13.0-17.0); MEAN CORPUSCULAR HEMOGLOBIN 25.9 PG (27.0-34.0); MEAN CORPUSCULAR HGB CONC 32.8 % (32.0-36.0); MEAN PLATELET VOLUME 7.3 FL (7.0-11.0); PLATELET COUNT 153 TH/MM3 (150-450); RED BLOOD COUNT 3.36 MIL/MM3 (4.50-5.90); RED CELL DISTRIBUTION WIDTH 19.4 % (11.6-17.2)
[2017-09-30] MEDS: DILTIAZEM HCL 30 MG TAB PO SCH ×3 (05:29→17:54)
[2017-09-30 05:47] LABS: BICARBONATE 24.1 MEQ/L (21.0-32.0); CALCIUM 7.1 MG/DL (8.5-10.1); CREATININE 0.85 MG/DL (0.60-1.30)
[2017-09-30 05:48] LABS: INTERNATIONAL NORMALIZED RATIO 1.9 RATIO; PROTHROMBIN TIME - PATIENT 19.5 SEC (9.8-11.6)
[2017-09-30] MEDS ORDERED: POTASSIUM CHLORIDE 25 MEQ EFFERVESCENT TAB PO ONE (06:00)
[2017-09-30 06:11] LABS: CALCIUM-PROTEIN CORRECTED 8.4 MG/DL (8.5-10.1); TOTAL PROTEIN 4.7 GM/DL (6.4-8.2)
[2017-09-30] MEDS: POTASSIUM CHLOR 10 MEQ PREMIX 100 ML IV SCH ×2 (06:24→07:36)
[2017-09-30] MEDS: SODIUM CHLORIDE 0.9% FLUSH 10 ML FLUSH IV FLUSH SCH ×3 (07:11→21:00)
[2017-09-30] MEDS: MAGNESIUM OXIDE 400 MG TAB PO SCH (08:53)
[2017-09-30] MEDS: NIFEdipine 60 MG SUSTAINED RELEASE TAB PO SCH (08:54)
[2017-09-30] MEDS: POTASSIUM CHLORIDE 10 MEQ CONTROLLED RELEASE TAB PO SCH ×2 (08:54→21:20)
[2017-09-30] MEDS: LACTOBACILLUS ACIDOPHILUS TAB PO SCH ×3 (08:54→17:54)
[2017-09-30] MEDS ORDERED: POTASSIUM CHLORIDE 10 MEQ CONTROLLED RELEASE TAB PO ONE (09:15)
--- NOTE | 2017-09-30 09:19 | PD.ONC.PN ---
Subjective Subjective Remarks Afebrile Patient anxious to go home No acute complaints Objective Data Date Time Temp Pulse Resp B/P (MAP) Pulse Ox O2 Delivery O2 Flow Rate FiO2 09/30/17 07:38 Room Air 09/30/17 07:33 97.7 78 18 137/81 (99) 99 09/30/17 04:32 97.7 71 16 141/71 (94) 99 09/29/17 23:56 97.9 82 18 146/66 (92) 100 09/29/17 22:27 79 09/29/17 22:00 21 09/29/17 20:57 100 Room Air 09/29/17 20:57 97.3 77 18 130/76 (94) 100 09/29/17 20:07 83 09/29/17 15:25 97.3 71 18 123/74 (90) 100 09/29/17 11:50 97.7 68 18 110/62 (78) 92 09/30/17 09/30/17 09/30/17 07:00 15:00 23:00 Intake Total 1000 ml 200 ml Output Total 1200 ml Balance -200 ml 200 ml Result Diagram: 09/30/17 0420 09/30/17 0420 Laboratory Results Laboratory Tests Test 09/29/17 09:20 09/30/17 04:20 White Blood Count 2.6 TH/MM3 5.0 TH/MM3 Red Blood Count 3.48 MIL/MM3 3.36 MIL/MM3 Hemoglobin 9.0 GM/DL 8.7 GM/DL Hematocrit 27.3 % 26.6 % Mean Corpuscular Volume 78.4 FL 79.0 FL Mean Corpuscular Hemoglobin 25.9 PG 25.9 PG Mean Corpuscular Hemoglobin Concent 33.0 % 32.8 % Red Cell Distribution Width 19.3 % 19.4 % Platelet Count 207 TH/MM3 153 TH/MM3 Mean Platelet Volume 7.4 FL 7.3 FL Neutrophils (%) (Auto) 96.4 % Lymphocytes (%) (Auto) 3.0 % Monocytes (%) (Auto) 0.6 % Eosinophils (%) (Auto) 0.0 % Basophils (%) (Auto) 0.0 % Neutrophils # (Auto) 2.5 TH/MM3 Lymphocytes # (Auto) 0.1 TH/MM3 Monocytes # (Auto) 0.0 TH/MM3 Eosinophils # (Auto) 0.0 TH/MM3 Basophils # (Auto) 0.0 TH/MM3 CBC Comment DIFF FINAL Differential Comment Prothrombin Time 19.5 SEC Prothromb Time International Ratio 1.9 RATIO Blood Urea Nitrogen 8 MG/DL Creatinine 0.85 MG/DL Random Glucose 134 MG/DL Total Protein 4.7 GM/DL Calcium Level 7.1 MG/DL Sodium Level 143 MEQ/L Potassium Level 2.9 MEQ/L Chloride Level 106 MEQ/L Carbon Dioxide Level 24.1 MEQ/L Anion Gap 13 MEQ/L Estimat Glomerular Filtration Rate 116 ML/MIN Protein Corrected Calcium 8.4 MG/DL Administered Medications Medications (Trade) Dose Ordered Sig/Shyla Route PRN Reason Start Time Stop Time Status Last Admin Dose Admin Sodium Chloride (NS Flush) 2 ml UNSCH PRN IV FLUSH FLUSH AFTER USING IV ACCESS 09/06/17 13:00 09/08/17 22:44 Sodium Chloride (NS Flush) 2 ml BID IV FLUSH 09/06/17 21:00 09/29/17 09:23 Acetaminophen (Tylenol) 650 mg Q4H PRN PO headache, fever, pain 1-4 09/06/17 13:00 09/06/17 19:41 Ondansetron HCl (Zofran Inj) 4 mg Q6H PRN IVP NAUSEA OR VOMITING 09/06/17 13:00 09/21/17 19:40 Dronabinol (Marinol) 2.5 mg BID@11,16 PO 09/07/17 11:00 09/29/17 15:27 Lactobacillus Acidophilus (Lactinex) 1 tab TID PO 09/11/17 09:00 09/30/17 08:54 Potassium Chloride/Sodium Chloride 1,000 ml @ 42 mls/hr [id number] IV 09/14/17 15:15 09/30/17 03:34 Sodium Chloride (NS Flush) See Protocol DAILY IV FLUSH 09/19/17 09:00 09/23/17 07:45 Heparin Sodium (Porcine) (Heparin Central Flush) See Protocol DAILY IV FLUSH 09/19/17 09:00 09/19/17 12:20 Magnesium Oxide (Mag-Ox) 400 mg DAILY PO 09/19/17 09:00 09/30/17 08:53 Warfarin Sodium (Coumadin) 1 mg DAILY@1600 PO 09/20/17 16:00 Future hold 09/29/17 15:27 Diltiazem HCl (Cardizem) 30 mg Q6HR PO 09/22/17 00:00 09/30/17 05:29 Potassium Chloride (KCl) 10 meq Q12HR PO 09/22/17 21:00 09/30/17 08:54 Vancomycin HCl 1250 mg/Sodium Chloride 262.5 ml @ 250 mls/hr Q24H IV 09/25/17 21:00 09/29/17 20:57 Nifedipine (Procardia Xl) 60 mg DAILY PO 09/28/17 09:30 09/30/17 08:54 Objective Remarks GENERAL: Middle-aged male resting in bed currently getting a bed bath. SKIN: Warm and dry. HEAD: Normocephalic. EYES: No injection or drainage. NECK: Supple, trachea midline. CARDIOVASCULAR: Regular rate and rhythm without murmurs. RESPIRATORY: Breath sounds equal bilaterally. No accessory muscle use. GASTROINTESTINAL: Abdomen soft, non-tender, nondistended. EXTREMITIES: No cyanosis. Generalized edema MUSCULOSKELETAL: Generalized weakness NEUROLOGICAL: No obvious focal deficit. Awake, alert, and oriented x3. Assessment/Plan Problem List: (1) Non-Hodgkin lymphoma ICD Codes: C85.90 - Non-Hodgkin lymphoma, unspecified, unspecified site Status: Acute Plan: --09/21: Rituxan started and then stopped as patient developed a.fib w/ RVR --09/22: cardiology consulted and cleared to resume chemotherapy --09/23: Rituxan rechallenged successfully --09/24: EPOCH D1 --09/25:EPOCH D2 --09/26:EPOCH D3 --09/28:EPOCH D4 started at 0300 --09/29 EPOCH to complete this afternoon. Start Neupogen 09/30. (2) Sepsis ICD Codes: A41.9 - Sepsis, unspecified organism Plan: --ID following --Most recent blood cultures show no growth --++ vanco, --echo on 09/12 showed vegetation (3) Normocytic anemia ICD Codes: D64.9 - Anemia, unspecified Status: Acute Plan: --monitor and transfuse as needed. (4) Pulmonary emboli ICD Codes: I26.99 - Other pulmonary embolism without acute cor pulmonale Status: Chronic Plan: --on Coumadin (5) C. difficile colitis ICD Codes: A04.7 - Enterocolitis due to Clostridium difficile Status: Resolved Plan: --on po vancomycin (6) Atrial fibrillation with RVR ICD Codes: I48.91 - Unspecified atrial fibrillation Plan: --on PO Cardizem, rate controlled. Assessment 47y/o male with high-grade diffuse large B-cell lymphoma admitted for pneumonia and nausea/vomiting as well as anemia. History of pulmonary embolism currently on anticoagulation. Hypertension. Protein-calorie malnutrition. Plan 1. Okay for discharge from oncology standpoint 2. Start Neupogen at 2 PM today. 3. Patient has an appointment at the outpatient [facility] at 11am for Neulasta on . He will not need any further Neupogen after this injection. 4. We will also check labs on Thursday, 10/06 at 2:40. He has an appointment with me on Tuesday 10/09 at 1:20 at the [facility]. Attending Statement The exam, history, and the medical decision-making described in the above note were completed with the assistance of the mid-level provider. I reviewed and agree with the findings presented. I attest that I had a [id number] encounter with the patient on the same day, and personally performed and documented my assessment and findings in the medical record. Pt seen and examined covering for Dr. Connelly. No complaints. Noted cardiology recommendation to increase activity. Pt state he feels better more activity in bed. Arrangements made of GCSF support as out patient. FU also arranged. OK for DC from heme/onc standpoint. Problem Qualifiers (1) Non-Hodgkin lymphoma: Qualified Codes: C83.38 - Diffuse large b-cell lymphoma, lymph nodes of multiple sites (2) Sepsis: Qualified Codes: A41.02 - Sepsis due to methicillin resistant Staphylococcus aureus Tia Montenegro Sep 30, 2017 09:19 Joanna Castellon MD Sep 30, 2017 19:28
[2017-09-30] MEDS ORDERED: CALCIUM CHLORIDE INJ 2 GM in SODIUM CHLORIDE 0.9% INJ 100 ML IV ONE (11:00)
[2017-09-30 11:46] LABS: BICARBONATE 27.9 MEQ/L (21.0-32.0); CALCIUM 7.3 MG/DL (8.5-10.1); CREATININE 0.68 MG/DL (0.60-1.30)
[2017-09-30] MEDS: DRONABINOL 2.5 MG CAP PO SCH ×2 (12:01→15:46)
[2017-09-30 12:14] LABS: CALCIUM-PROTEIN CORRECTED 8.6 MG/DL (8.5-10.1); TOTAL PROTEIN 4.8 GM/DL (6.4-8.2)
--- NOTE | 2017-09-30 13:20 | PD.CARD.PN ---
Subjective Subjective Remarks No CP or SOB, no new c/o Objective Medications Current Medications Medications (Trade) Dose Ordered Sig/Shyla Route Start Time Stop Time Status Last Admin (NS Flush) 2 ml UNSCH PRN IV FLUSH 09/06/17 13:00 09/08/17 22:44 (NS Flush) 2 ml BID IV FLUSH 09/06/17 21:00 09/29/17 09:23 (Tylenol) 650 mg Q4H PRN PO 09/06/17 13:00 09/06/17 19:41 (Zofran Inj) 4 mg Q6H PRN IVP 09/06/17 13:00 09/21/17 19:40 (Reglan Inj) 5 mg Q6H PRN IV PUSH 09/06/17 13:00 (Restoril) 15 mg HS PRN PO 09/06/17 13:00 (Narcan Inj) 0.4 mg UNSCH PRN IV PUSH 09/06/17 13:00 (Milk Of Magnesia Liq) 30 ml Q12H PRN PO 09/06/17 13:00 (Senokot) 17.2 mg Q12H PRN PO 09/06/17 13:00 (Dulcolax Supp) 10 mg DAILY PRN RECTAL 09/06/17 13:00 (Lactulose Liq) 30 ml DAILY PRN PO 09/06/17 13:00 (Duoneb Neb) 1 ampule Q4HR NEB PRN NEB 09/06/17 15:00 (Marinol) 2.5 mg BID@11,16 PO 09/07/17 11:00 09/30/17 12:01 Pharmacy Profile Note 0 ml @ 0 mls/hr UNSCH OTHER 09/07/17 22:00 Pharmacy Profile Note 0 ml @ 0 mls/hr UNSCH OTHER 09/09/17 14:30 (Lactinex) 1 tab TID PO 09/11/17 09:00 09/30/17 12:01 Potassium Chloride/Sodium Chloride 1,000 ml @ 42 mls/hr [id number] IV 09/14/17 15:15 09/30/17 03:34 (NS Flush) See Protocol DAILY IV FLUSH 09/19/17 09:00 09/23/17 07:45 (NS Flush) See Protocol UNSCH PRN IV FLUSH 09/18/17 15:15 (Heparin Central Flush) See Protocol DAILY IV FLUSH 09/19/17 09:00 09/19/17 12:20 (Heparin Central Flush) See Protocol UNSCH PRN IV FLUSH 09/18/17 15:15 (NS Flush) UNSCH PRN IV FLUSH 09/18/17 15:15 (Mag-Ox) 400 mg DAILY PO 09/19/17 09:00 09/30/17 08:53 (Coumadin) 1 mg DAILY@1600 PO 09/20/17 16:00 Future hold 09/29/17 15:27 (Cardizem) 30 mg Q6HR PO 09/22/17 00:00 09/30/17 12:02 (KCl) 10 meq Q12HR PO 09/22/17 21:00 09/30/17 08:54 Vancomycin HCl 1250 mg/Sodium Chloride 262.5 ml @ 250 mls/hr Q24H IV 09/25/17 21:00 09/29/17 20:57 (Procardia Xl) 60 mg DAILY PO 09/28/17 09:30 09/30/17 08:54 Filgrastim 300 mcg/Dextrose 25 ml @ 100 mls/hr DAILY@14 IV 09/30/17 14:00 10/07/17 13:59 (Coumadin) 1 mg ONCE@1600 ONCE PO 09/30/17 16:00 09/30/17 16:01 Vital Signs / I&O Vital Signs Date Time Temp Pulse Resp B/P (MAP) Pulse Ox O2 Delivery O2 Flow Rate FiO2 09/30/17 12:01 97.8 81 18 125/74 (91) 98 09/30/17 08:30 99 21 09/30/17 07:38 Room Air 09/30/17 07:33 97.7 78 18 137/81 (99) 99 09/30/17 07:00 71 09/30/17 04:32 97.7 71 16 141/71 (94) 99 09/29/17 23:56 97.9 82 18 146/66 (92) 100 09/29/17 22:27 79 09/29/17 22:00 21 09/29/17 20:57 100 Room Air 09/29/17 20:57 97.3 77 18 130/76 (94) 100 09/29/17 20:07 83 12/19/17 15:25 97.3 71 18 123/74 (90) 100 I/O 09/29/17 09/29/17 09/29/17 09/30/17 09/30/17 09/30/17 06:59 14:59 22:59 06:59 14:59 22:59 Intake Total 94 ml 1080 ml 1942.5 ml 1000 ml 200 ml Output Total 700 ml 1225 ml 1200 ml Balance -606 ml 1080 ml 717.5 ml -200 ml 200 ml Intake Oral 1680 ml IV Total 94 ml 1080 ml 262.5 ml 1000 ml 200 ml Output Urine Total 700 ml 1225 ml 1200 ml # Voids 2 # Bowel Movements 2 4 4 Physical Exam GENERAL: In NAD SKIN: Warm and dry. HEAD: Normocephalic. EYES: No scleral icterus. No injection or drainage. NECK: Supple, trachea midline. No JVD or lymphadenopathy. CARDIOVASCULAR: Regular rate and rhythm without murmurs, gallops, or rubs. RESPIRATORY: Breath sounds equal bilaterally. No accessory muscle use. GASTROINTESTINAL: Abdomen soft, non-tender, nondistended. MUSCULOSKELETAL: No cyanosis, or edema. Laboratory Laboratory Tests Test 09/30/17 04:20 09/30/17 10:50 White Blood Count 5.0 TH/MM3 Red Blood Count 3.36 MIL/MM3 Hemoglobin 8.7 GM/DL Hematocrit 26.6 % Mean Corpuscular Volume 79.0 FL Mean Corpuscular Hemoglobin 25.9 PG Mean Corpuscular Hemoglobin Concent 32.8 % Red Cell Distribution Width 19.4 % Platelet Count 153 TH/MM3 Mean Platelet Volume 7.3 FL Prothrombin Time 19.5 SEC Prothromb Time International Ratio 1.9 RATIO Blood Urea Nitrogen 8 MG/DL 8 MG/DL Creatinine 0.85 MG/DL 0.68 MG/DL Random Glucose 134 MG/DL 101 MG/DL Total Protein 4.7 GM/DL 4.8 GM/DL Calcium Level 7.1 MG/DL 7.3 MG/DL Sodium Level 143 MEQ/L 140 MEQ/L Potassium Level 2.9 MEQ/L 3.7 MEQ/L Chloride Level 106 MEQ/L 107 MEQ/L Carbon Dioxide Level 24.1 MEQ/L 27.9 MEQ/L Anion Gap 13 MEQ/L 5 MEQ/L Estimat Glomerular Filtration Rate 116 ML/MIN 150 ML/MIN Protein Corrected Calcium 8.4 MG/DL 8.6 MG/DL Assessment and Plan Problem List: (1) Atrial fibrillation with RVR ICD Codes: I48.91 - Unspecified atrial fibrillation (2) Non-Hodgkin lymphoma ICD Codes: C85.90 - Non-Hodgkin lymphoma, unspecified, unspecified site Status: Acute (3) Debility ICD Codes: R53.81 - Other malaise Status: Acute (4) Hypertension ICD Codes: I10 - Essential (primary) hypertension (5) Anemia ICD Codes: D64.9 - Anemia, unspecified Status: Acute Assessment and Plan No significant arrhythmias with chemo. Continue monitoring on tele. Continue diltiazem. Increase activity. No new cardiac issues. Problem Qualifiers (1) Non-Hodgkin lymphoma: Qualified Codes: C83.38 - Diffuse large b-cell lymphoma, lymph nodes of multiple sites (2) Anemia: Qualified Codes: D64.9 - Anemia, unspecified Mayra Azul MD Sep 30, 2017 13:20
[2017-09-30] MEDS: FILGRASTIM INJ 300 MCG in DEXTROSE 5% IN WATER INJ 24 ML IV SCH ×2 (14:41)
[2017-09-30] MEDS: WARFARIN SOD 1 MG TAB PO SCH (15:46)
[2017-09-30] MEDS ORDERED: WARFARIN SOD 1 MG TAB PO ONE (16:00)
--- NOTE | 2017-09-30 17:37 | HHI.PR ---
Subjective Remarks Deferred entry - patient seen at 11 am Patient denies cp, sob appetite is still poor afebrile K low Objective Vitals Vital Signs Date Time Temp Pulse Resp B/P (MAP) Pulse Ox O2 Delivery O2 Flow Rate FiO2 09/30/17 15:46 97.9 74 18 132/79 (96) 100 09/30/17 12:01 97.8 81 18 125/74 (91) 98 09/30/17 08:30 99 21 09/30/17 07:38 Room Air 09/30/17 07:33 97.7 78 18 137/81 (99) 99 09/30/17 07:00 71 09/30/17 04:32 97.7 71 16 141/71 (94) 99 09/29/17 23:56 97.9 82 18 146/66 (92) 100 09/29/17 22:27 79 09/29/17 22:00 21 09/29/17 20:57 100 Room Air 09/29/17 20:57 97.3 77 18 130/76 (94) 100 09/29/17 20:07 83 I/O 09/29/17 09/29/17 09/29/17 09/30/17 09/30/17 09/30/17 07:00 15:00 23:00 07:00 15:00 23:00 Intake Total 94 ml 1080 ml 1942.5 ml 1000 ml 320 ml Output Total 700 ml 1225 ml 1200 ml Balance -606 ml 1080 ml 717.5 ml -200 ml 320 ml Intake Oral 1680 ml IV Total 94 ml 1080 ml 262.5 ml 1000 ml 320 ml Output Urine Total 700 ml 1225 ml 1200 ml # Voids 2 # Bowel Movements 2 4 4 Result Diagram: 09/30/17 0420 09/30/17 1050 Imaging Last Impressions Chest X-Ray 09/18/17 0000 Signed Impressions: Service Date/Time: Monday, September 18, 2017 15:43 - CONCLUSION: 1. The left PICC line is in good position at the atrial junction. 2. Stable bilateral bibasilar airspace disease, left greater than right. 3. Probable trace left pleural effusion. Liang Peralta MD Upper Extremity Ultrasound 09/10/17 0000 Signed Impressions: Service Date/Time: August 13:56 - CONCLUSION: 1. Nonocclusive thrombus in the jugular vein. 2. The other vessels are patent. 3. Solid lobular mass in the supraclavicular region consistent with adenopathy in this patient with history of lymphoma. Goldy Suarez MD Port Line Revision 09/08/17 0000 Signed Impressions: Service Date/Time: Friday, September 08, 2017 00:00 - CONCLUSION: Uncomplicated port removal as above. Adama Briceño MD Chest CT 09/06/17 0000 Signed Impressions: Service Date/Time: Wednesday, September 06, 2017 15:57 - CONCLUSION: 1. Patchy bilateral air space consolidation in both lung bases. Differential diagnosis includes bronchopneumonia and aspiration. Small pleural effusions improved from April. 2. Extensive mediastinal adenopathy also improved from April. Travis Ruffin MD Objective Remarks GENERAL: Cachectic chronically ill appearing -[place] male patient. SKIN: Warm and dry. HEAD: Normocephalic. EYES: No scleral icterus. No injection or drainage. NECK: Supple, trachea midline. No JVD or lymphadenopathy. CARDIOVASCULAR: Regular rate and rhythm without murmurs, gallops, or rubs. RESPIRATORY: Breath sounds equal bilaterally. No accessory muscle use. GASTROINTESTINAL: Abdomen soft, non-tender, nondistended. EXTREMITIES: No pedal edema. NEUROLOGICAL: Awake, alert, and oriented x 3. Non-focal. Procedures None. Medications and IVs Current Medications Medications (Trade) Dose Ordered Sig/Shyla Route Start Time Stop Time Status Last Admin (NS Flush) 2 ml UNSCH PRN IV FLUSH 09/06/17 13:00 09/08/17 22:44 (NS Flush) 2 ml BID IV FLUSH 09/06/17 21:00 09/29/17 09:23 (Tylenol) 650 mg Q4H PRN PO 09/06/17 13:00 09/06/17 19:41 (Zofran Inj) 4 mg Q6H PRN IVP 09/06/17 13:00 09/21/17 19:40 (Reglan Inj) 5 mg Q6H PRN IV PUSH 09/06/17 13:00 (Restoril) 15 mg HS PRN PO 09/06/17 13:00 (Narcan Inj) 0.4 mg UNSCH PRN IV PUSH 09/06/17 13:00 (Milk Of Magnesia Liq) 30 ml Q12H PRN PO 09/06/17 13:00 (Senokot) 17.2 mg Q12H PRN PO 09/06/17 13:00 (Dulcolax Supp) 10 mg DAILY PRN RECTAL 09/06/17 13:00 (Lactulose Liq) 30 ml DAILY PRN PO 09/06/17 13:00 (Duoneb Neb) 1 ampule Q4HR NEB PRN NEB 09/06/17 15:00 (Marinol) 2.5 mg BID@11,16 PO 09/07/17 11:00 09/30/17 15:46 Pharmacy Profile Note 0 ml @ 0 mls/hr UNSCH OTHER 09/07/17 22:00 Pharmacy Profile Note 0 ml @ 0 mls/hr UNSCH OTHER 09/09/17 14:30 (Lactinex) 1 tab TID PO 09/11/17 09:00 09/30/17 12:01 Potassium Chloride/Sodium Chloride 1,000 ml @ 42 mls/hr [id number] IV 09/14/17 15:15 09/30/17 03:34 (NS Flush) See Protocol DAILY IV FLUSH 09/19/17 09:00 09/23/17 07:45 (NS Flush) See Protocol UNSCH PRN IV FLUSH 09/18/17 15:15 (Heparin Central Flush) See Protocol DAILY IV FLUSH 09/19/17 09:00 09/19/17 12:20 (Heparin Central Flush) See Protocol UNSCH PRN IV FLUSH 09/18/17 15:15 (NS Flush) UNSCH PRN IV FLUSH 09/18/17 15:15 (Mag-Ox) 400 mg DAILY PO 09/19/17 09:00 09/30/17 08:53 (Coumadin) 1 mg DAILY@1600 PO 09/20/17 16:00 Future hold 09/30/17 15:46 (Cardizem) 30 mg Q6HR PO 09/22/17 00:00 09/30/17 12:02 (KCl) 10 meq Q12HR PO 09/22/17 21:00 09/30/17 08:54 Vancomycin HCl 1250 mg/Sodium Chloride 262.5 ml @ 250 mls/hr Q24H IV 09/25/17 21:00 09/29/17 20:57 (Procardia Xl) 60 mg DAILY PO 09/28/17 09:30 09/30/17 08:54 Filgrastim 300 mcg/Dextrose 25 ml @ 100 mls/hr DAILY@14 IV 09/30/17 14:00 10/07/17 13:59 09/30/17 14:41 A/P Problem List: (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 difficile colitis ICD Code: A04.7 - Enterocolitis due to Clostridium difficile Status: Resolved (7) Sepsis ICD Code: A41.9 - Sepsis, unspecified organism (8) Debility ICD Code: R53.81 - Other malaise Status: Acute (9) Atrial fibrillation with RVR ICD Code: I48.91 - Unspecified atrial fibrillation (10) Sepsis due to methicillin resistant Staphylococcus aureus (MRSA) ICD Code: A41.02 - Sepsis due to Methicillin resistant Staphylococcus aureus Assessment and Plan Mr. Werner is a 47-year-old male patient with a known medical history of non- Hodgkin B-cell lymphoma, HTN and history of PE who presented to the ED with complaints of generalized weakness, nausea, vomiting and cough x 1 week. 1. Sepsis, MRSA tricuspid valve endocarditis, MRSA bacteremia, bilateral pneumonia - Patient underwent Port removal 09/10. - Status post cefepime and Zithromax course - 2-D echocardiogram with tricuspid valve vegetation - ID consulted and following. is following-Vancomycin for 6 weeks through October 26 2. C difficile diarrhea/colitis. - On po Vancomycin, IV Flagyl discontinued. Continue oral Vancomycin total for 14 days. Treatment completes today. - Diarrhea resolved. 3. 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 Starting on Neupogen tomorrow 09/30. OK to DC to rehab as per hematology as long as Neupogen and IV antibiotic can be provided at rehab. 4. Atrial fibrillation with rapid ventricular rate - Resolved and now back in normal sinus rhythm. Monitored on telemetry. Cardiology consulted - Dr Azul. Continue by mouth Cardizem. 5. Microcytic hypochromic anemia: - Hemoglobin 6.6/Hematocrit 19.6 on presentation. Hemoccult negative. - s/p 2 units PRBC -Hb improved to 9 - monitor H&H - 09/29 Hemoglobin stable at 9.0. 6. Severe protein calorie malnutrition due to the colitis - chronically ill, poor appetite - cont ensure to diet. - Continue Marinol. - Dietitian following. Will check phosphorus and magnesium in am. 7. Hypokalemia - Initially likely due to GI loss, however diarrhea resolved. - K 3.0 today - replace orally and monitor bmp. - 09/30 K still severely low at 2.9. Replaced orally. Monitor BMP. 8. Essential Hypertension: - Procardia xl decreased to 60 mg po daily due to borderline hypotension. - BP stable. Continue current antihypertensives. 9. H/O PE, and nonocclusive thrombus in jugular vein - Had massive PE requiring tPA in April 2017. cont Warfarin - monitor INR. pharmacy following for coumadin management - 09/29 INR subtherpeutic at 1.8. Pharmacy managing dose. - 09/30 INR 1.9. Continue to monitor PT/INR. 10. Debility. - Continue PT which patient is not very compliant with. Patient encouraged to work with PT. DVT Prophylaxis: SCDs. on coumadin Discharge Planning Patient is medically stable for DC, will be able to DC once IV antibiotics are approve and set up for outpatient infusion. Patient to go home with [facility]. Discussed w case supervisor. Problem Qualifiers (1) Non-Hodgkin lymphoma: Qualified Codes: C83.38 - Diffuse large b-cell lymphoma, lymph nodes of multiple sites (2) Anemia: Qualified Codes: D64.9 - Anemia, unspecified (3) Sepsis: Qualified Codes: A41.02 - Sepsis due to methicillin resistant Staphylococcus aureus Bart Liz MD Sep 30, 2017 17:37
[2017-09-30] MEDS: VANCOMYCIN INJ 1,250 MG in SODIUM CHLOR 0.9% 250 ML INJ 250 ML IV SCH (21:19)
[2017-10-01] VITALS (7 sets, daily range): BP systolic 121–146; BP diastolic 74–89; PULSE 74–84; RESP 16–18; TEMP 97.8–98.6; O2SAT 97–100
[2017-10-01] MEDS: DILTIAZEM HCL 30 MG TAB PO SCH ×4 (00:06→16:53)
[2017-10-01 05:50] LABS: INTERNATIONAL NORMALIZED RATIO 1.7 RATIO; PROTHROMBIN TIME - PATIENT 16.9 SEC (9.8-11.6)
[2017-10-01] MEDS: SODIUM CHLORIDE 0.9% FLUSH 10 ML FLUSH IV FLUSH SCH ×3 (09:00→20:36)
[2017-10-01] MEDS: LACTOBACILLUS ACIDOPHILUS TAB PO SCH ×3 (10:01→16:53)
[2017-10-01] MEDS: NIFEdipine 60 MG SUSTAINED RELEASE TAB PO SCH (10:01)
[2017-10-01] MEDS: POTASSIUM CHLORIDE 10 MEQ CONTROLLED RELEASE TAB PO SCH ×2 (10:02→20:36)
[2017-10-01] MEDS: MAGNESIUM OXIDE 400 MG TAB PO SCH (10:02)
--- NOTE | 2017-10-01 10:33 | PD.CARD.PN ---
Subjective Subjective Remarks No CP or SOB, feels better, but not much active Objective Medications Current Medications Medications (Trade) Dose Ordered Sig/Shyla Route Start Time Stop Time Status Last Admin (NS Flush) 2 ml UNSCH PRN IV FLUSH 09/06/17 13:00 09/08/17 22:44 (NS Flush) 2 ml BID IV FLUSH 09/06/17 21:00 10/01/17 09:00 (Tylenol) 650 mg Q4H PRN PO 09/06/17 13:00 09/06/17 19:41 (Zofran Inj) 4 mg Q6H PRN IVP 09/06/17 13:00 09/21/17 19:40 (Reglan Inj) 5 mg Q6H PRN IV PUSH 09/06/17 13:00 (Restoril) 15 mg HS PRN PO 09/06/17 13:00 (Narcan Inj) 0.4 mg UNSCH PRN IV PUSH 09/06/17 13:00 (Milk Of Magnesia Liq) 30 ml Q12H PRN PO 09/06/17 13:00 (Senokot) 17.2 mg Q12H PRN PO 09/06/17 13:00 (Dulcolax Supp) 10 mg DAILY PRN RECTAL 09/06/17 13:00 (Lactulose Liq) 30 ml DAILY PRN PO 09/06/17 13:00 (Duoneb Neb) 1 ampule Q4HR NEB PRN NEB 09/06/17 15:00 (Marinol) 2.5 mg BID@11,16 PO 09/07/17 11:00 09/30/17 15:46 Pharmacy Profile Note 0 ml @ 0 mls/hr UNSCH OTHER 09/07/17 22:00 Pharmacy Profile Note 0 ml @ 0 mls/hr UNSCH OTHER 09/09/17 14:30 (Lactinex) 1 tab TID PO 09/11/17 09:00 10/01/17 10:01 Potassium Chloride/Sodium Chloride 1,000 ml @ 42 mls/hr [id number] IV 09/14/17 15:15 09/30/17 03:34 (NS Flush) See Protocol DAILY IV FLUSH 09/19/17 09:00 10/01/17 10:02 (NS Flush) See Protocol UNSCH PRN IV FLUSH 09/18/17 15:15 (Heparin Central Flush) See Protocol DAILY IV FLUSH 09/19/17 09:00 10/01/17 10:02 (Heparin Central Flush) See Protocol UNSCH PRN IV FLUSH 09/18/17 15:15 (NS Flush) UNSCH PRN IV FLUSH 09/18/17 15:15 (Mag-Ox) 400 mg DAILY PO 09/19/17 09:00 10/01/17 10:02 (Cardizem) 30 mg Q6HR PO 09/22/17 00:00 10/01/17 04:43 (KCl) 10 meq Q12HR PO 09/22/17 21:00 10/01/17 10:02 Vancomycin HCl 1250 mg/Sodium Chloride 262.5 ml @ 250 mls/hr Q24H IV 09/25/17 21:00 09/30/17 21:19 (Procardia Xl) 60 mg DAILY PO 09/28/17 09:30 10/01/17 10:01 Filgrastim 300 mcg/Dextrose 25 ml @ 100 mls/hr DAILY@14 IV 09/30/17 14:00 10/07/17 13:59 09/30/17 14:41 (Coumadin) 2.5 mg DAILY@1600 PO 10/01/17 16:00 Vital Signs / I&O Vital Signs Date Time Temp Pulse Resp B/P (MAP) Pulse Ox O2 Delivery O2 Flow Rate FiO2 10/01/17 08:14 98.4 75 16 144/81 (102) 98 10/01/17 07:24 Room Air 10/01/17 04:30 98.1 74 18 121/75 (90) 100 10/01/17 00:01 98.5 83 18 146/89 (108) 99 09/30/17 21:30 21 09/30/17 21:20 98 Room Air 09/30/17 21:16 98.1 76 18 133/76 (95) 98 09/30/17 20:00 73 09/30/17 15:46 97.9 74 18 132/79 (96) 100 09/30/17 12:01 97.8 81 18 125/74 (91) 98 I/O 09/30/17 09/30/17 09/30/17 10/01/17 10/01/17 10/01/17 07:00 15:00 23:00 07:00 15:00 23:00 Intake Total 1000 ml 320 ml 840 ml 742.5 ml Output Total 1200 ml 2725 ml 2000 ml Balance -200 ml 320 ml -1885 ml -1257.5 ml Intake Oral 840 ml 480 ml IV Total 1000 ml 320 ml 262.5 ml Output Urine Total 1200 ml 2725 ml 2000 ml # Bowel Movements 4 7 2 Physical Exam GENERAL: In NAD SKIN: Warm and dry. HEAD: Normocephalic. EYES: No scleral icterus. No injection or drainage. NECK: Supple, trachea midline. No JVD or lymphadenopathy. CARDIOVASCULAR: Regular rate and rhythm without murmurs, gallops, or rubs. RESPIRATORY: Breath sounds equal bilaterally. No accessory muscle use. GASTROINTESTINAL: Abdomen soft, non-tender, nondistended. MUSCULOSKELETAL: No cyanosis, or edema. Laboratory Laboratory Tests Test 09/30/17 10:50 10/01/17 04:37 Blood Urea Nitrogen 8 MG/DL Creatinine 0.68 MG/DL Random Glucose 101 MG/DL Total Protein 4.8 GM/DL Calcium Level 7.3 MG/DL Sodium Level 140 MEQ/L Potassium Level 3.7 MEQ/L Chloride Level 107 MEQ/L Carbon Dioxide Level 27.9 MEQ/L Anion Gap 5 MEQ/L Estimat Glomerular Filtration Rate 150 ML/MIN Protein Corrected Calcium 8.6 MG/DL Prothrombin Time 16.9 SEC Prothromb Time International Ratio 1.7 RATIO Assessment and Plan Problem List: (1) Atrial fibrillation with RVR ICD Codes: I48.91 - Unspecified atrial fibrillation (2) Non-Hodgkin lymphoma ICD Codes: C85.90 - Non-Hodgkin lymphoma, unspecified, unspecified site Status: Acute (3) Debility ICD Codes: R53.81 - Other malaise Status: Acute (4) Hypertension ICD Codes: I10 - Essential (primary) hypertension (5) Anemia ICD Codes: D64.9 - Anemia, unspecified Status: Acute Assessment and Plan Remains stable from cardiac standpoint. No significant arrhythmias with chemo. Continue monitoring on tele. Continue diltiazem. Increase activity, has been quite inactive most of the time. Problem Qualifiers (1) Non-Hodgkin lymphoma: Qualified Codes: C83.38 - Diffuse large b-cell lymphoma, lymph nodes of multiple sites (2) Anemia: Qualified Codes: D64.9 - Anemia, unspecified Mayra Azul MD Oct 01, 2017 10:33
[2017-10-01] MEDS: DRONABINOL 2.5 MG CAP PO SCH ×2 (12:59→16:00)
[2017-10-01] MEDS: NS + KCL 40 MEQ INJ 1,000 ML IV SCH (12:59)
[2017-10-01] MEDS: FILGRASTIM INJ 300 MCG in DEXTROSE 5% IN WATER INJ 24 ML IV SCH ×2 (13:00)
--- NOTE | 2017-10-01 13:54 | PD.ONC.PN ---
Subjective Subjective Remarks No complaints. Tucked in under covers. Objective Data Date Time Temp Pulse Resp B/P (MAP) Pulse Ox O2 Delivery O2 Flow Rate FiO2 10/01/17 08:14 98.4 75 16 144/81 (102) 98 10/01/17 07:24 Room Air 10/01/17 04:30 98.1 74 18 121/75 (90) 100 10/01/17 00:01 98.5 83 18 146/89 (108) 99 09/30/17 21:30 21 09/30/17 21:20 98 Room Air 09/30/17 21:16 98.1 76 18 133/76 (95) 98 09/30/17 20:00 73 09/30/17 15:46 97.9 74 18 132/79 (96) 100 10/01/17 10/01/17 10/01/17 07:00 15:00 23:00 Intake Total 742.5 ml 156 ml Output Total 2000 ml Balance -1257.5 ml 156 ml Result Diagram: 09/30/17 0420 09/30/17 1050 Laboratory Results Laboratory Tests Test 10/01/17 04:37 Prothrombin Time 16.9 SEC Prothromb Time International Ratio 1.7 RATIO Administered Medications Medications (Trade) Dose Ordered Sig/Shyla Route PRN Reason Start Time Stop Time Status Last Admin Dose Admin Sodium Chloride (NS Flush) 2 ml UNSCH PRN IV FLUSH FLUSH AFTER USING IV ACCESS 09/06/17 13:00 09/08/17 22:44 Sodium Chloride (NS Flush) 2 ml BID IV FLUSH 09/06/17 21:00 10/01/17 09:00 Acetaminophen (Tylenol) 650 mg Q4H PRN PO headache, fever, pain 1-4 09/06/17 13:00 09/06/17 19:41 Ondansetron HCl (Zofran Inj) 4 mg Q6H PRN IVP NAUSEA OR VOMITING 09/06/17 13:00 09/21/17 19:40 Dronabinol (Marinol) 2.5 mg BID@11,16 PO 09/07/17 11:00 10/01/17 12:59 Lactobacillus Acidophilus (Lactinex) 1 tab TID PO 09/11/17 09:00 10/01/17 12:59 Potassium Chloride/Sodium Chloride 1,000 ml @ 42 mls/hr [id number] IV 09/14/17 15:15 10/01/17 12:59 Sodium Chloride (NS Flush) See Protocol DAILY IV FLUSH 09/19/17 09:00 10/01/17 10:02 Heparin Sodium (Porcine) (Heparin Central Flush) See Protocol DAILY IV FLUSH 09/19/17 09:00 10/01/17 10:02 Magnesium Oxide (Mag-Ox) 400 mg DAILY PO 09/19/17 09:00 10/01/17 10:02 Diltiazem HCl (Cardizem) 30 mg Q6HR PO 09/22/17 00:00 10/01/17 12:59 Potassium Chloride (KCl) 10 meq Q12HR PO 09/22/17 21:00 10/01/17 10:02 Vancomycin HCl 1250 mg/Sodium Chloride 262.5 ml @ 250 mls/hr Q24H IV 09/25/17 21:00 09/30/17 21:19 Nifedipine (Procardia Xl) 60 mg DAILY PO 09/28/17 09:30 10/01/17 10:01 Filgrastim 300 mcg/Dextrose 25 ml @ 100 mls/hr DAILY@14 IV 09/30/17 14:00 10/07/17 13:59 10/01/17 13:00 Objective Remarks GENERAL: Middle-aged male resting in bed currently getting a bed bath. SKIN: Warm and dry. HEAD: Normocephalic. EYES: No injection or drainage. NECK: Supple, trachea midline. CARDIOVASCULAR: Regular rate and rhythm without murmurs. RESPIRATORY: Breath sounds equal bilaterally. No accessory muscle use. GASTROINTESTINAL: Abdomen soft, non-tender, nondistended. EXTREMITIES: No cyanosis. Generalized edema MUSCULOSKELETAL: Generalized weakness NEUROLOGICAL: No obvious focal deficit. Awake, alert, and oriented x3. Assessment/Plan Problem List: (1) Non-Hodgkin lymphoma ICD Codes: C85.90 - Non-Hodgkin lymphoma, unspecified, unspecified site Status: Acute Plan: --09/21: Rituxan started and then stopped as patient developed a.fib w/ RVR --09/22: cardiology consulted and cleared to resume chemotherapy --09/23: Rituxan rechallenged successfully --09/24: EPOCH D1 --09/25:EPOCH D2 --09/26:EPOCH D3 --09/28:EPOCH D4 started at 0300 --09/29 EPOCH to complete this afternoon. Start Neupogen 09/30. 10/01/17. Cont Neupogen, plan to cont with Neulasta as out patient. Noted L axillary adenopathy still palpable. (2) Sepsis ICD Codes: A41.9 - Sepsis, unspecified organism Plan: --ID following --Most recent blood cultures show no growth --++ vanco, --echo on 09/12 showed vegetation (3) Normocytic anemia ICD Codes: D64.9 - Anemia, unspecified Status: Acute Plan: --monitor and transfuse as needed. 10/01/17. Stable hgb, No transfusion needed. (4) Pulmonary emboli ICD Codes: I26.99 - Other pulmonary embolism without acute cor pulmonale Status: Chronic Plan: --on Coumadin 10/01/17. Continue chronic anticoagulant therapy. INR 1.7 adjust dose with pharmacy assistance. (5) C. difficile colitis ICD Codes: A04.7 - Enterocolitis due to Clostridium difficile Status: Resolved Plan: --on po vancomycin 10/01/17. Continue on tx as per ID. Assessment 47y/o male with high-grade diffuse large B-cell lymphoma admitted for pneumonia and nausea/vomiting as well as anemia. History of pulmonary embolism currently on anticoagulation. Hypertension. Protein-calorie malnutrition. Plan 1. Continue Neupogen 2. Patient had an appointment at the outpatient [facility], however beyond 72 hour window, cont Neupogen. 3. We will also check labs on Thursday, 10/06 at 2:40. He has an appointment with me on Tuesday 10/09 at 1:20 at the [facility]. Problem Qualifiers (1) Non-Hodgkin lymphoma: Qualified Codes: C83.38 - Diffuse large b-cell lymphoma, lymph nodes of multiple sites (2) Sepsis: Qualified Codes: A41.02 - Sepsis due to methicillin resistant Staphylococcus aureus Joanna Castellon MD Oct 01, 2017 13:54
--- NOTE | 2017-10-01 14:08 | HHI.PR ---
Subjective Remarks Patient denies cp/sob afebrile. Denies fevers or chills. States appetite is fine. Objective Vitals Vital Signs Date Time Temp Pulse Resp B/P (MAP) Pulse Ox O2 Delivery O2 Flow Rate FiO2 10/01/17 08:14 98.4 75 16 144/81 (102) 98 10/01/17 07:24 Room Air 10/01/17 04:30 98.1 74 18 121/75 (90) 100 10/01/17 00:01 98.5 83 18 146/89 (108) 99 09/30/17 21:30 21 09/30/17 21:20 98 Room Air 09/30/17 21:16 98.1 76 18 133/76 (95) 98 09/30/17 20:00 73 09/30/17 15:46 97.9 74 18 132/79 (96) 100 I/O 09/30/17 09/30/17 09/30/17 10/01/17 10/01/17 10/01/17 07:00 15:00 23:00 07:00 15:00 23:00 Intake Total 1000 ml 320 ml 840 ml 742.5 ml 156 ml Output Total 1200 ml 2725 ml 2000 ml Balance -200 ml 320 ml -1885 ml -1257.5 ml 156 ml Intake Oral 840 ml 480 ml IV Total 1000 ml 320 ml 262.5 ml 156 ml Output Urine Total 1200 ml 2725 ml 2000 ml # Bowel Movements 4 7 2 Result Diagram: 09/30/17 0420 09/30/17 1050 Imaging Last Impressions Chest X-Ray 09/18/17 0000 Signed Impressions: Service Date/Time: Monday, September 18, 2017 15:43 - CONCLUSION: 1. The left PICC line is in good position at the atrial junction. 2. Stable bilateral bibasilar airspace disease, left greater than right. 3. Probable trace left pleural effusion. Liang Peralta MD Upper Extremity Ultrasound 09/10/17 0000 Signed Impressions: Service Date/Time: August 13:56 - CONCLUSION: 1. Nonocclusive thrombus in the jugular vein. 2. The other vessels are patent. 3. Solid lobular mass in the supraclavicular region consistent with adenopathy in this patient with history of lymphoma. Goldy Suarez MD Port Line Revision 09/08/17 0000 Signed Impressions: Service Date/Time: Friday, September 08, 2017 00:00 - CONCLUSION: Uncomplicated port removal as above. Adama Briceño MD Chest CT 09/06/17 0000 Signed Impressions: Service Date/Time: Wednesday, September 06, 2017 15:57 - CONCLUSION: 1. Patchy bilateral air space consolidation in both lung bases. Differential diagnosis includes bronchopneumonia and aspiration. Small pleural effusions improved from April. 2. Extensive mediastinal adenopathy also improved from April. Travis Ruffin MD Objective Remarks GENERAL: Cachectic chronically ill appearing -[place] male patient. SKIN: Warm and dry. HEAD: Normocephalic. EYES: No scleral icterus. No injection or drainage. NECK: Supple, trachea midline. No JVD or lymphadenopathy. CARDIOVASCULAR: Regular rate and rhythm without murmurs, gallops, or rubs. RESPIRATORY: Breath sounds equal bilaterally. No accessory muscle use. GASTROINTESTINAL: Abdomen soft, non-tender, nondistended. EXTREMITIES: No pedal edema. NEUROLOGICAL: Awake, alert, and oriented x 3. Non-focal. Procedures None. Medications and IVs Current Medications Medications (Trade) Dose Ordered Sig/Shyla Route Start Time Stop Time Status Last Admin (NS Flush) 2 ml UNSCH PRN IV FLUSH 09/06/17 13:00 09/08/17 22:44 (NS Flush) 2 ml BID IV FLUSH 09/06/17 21:00 10/01/17 09:00 (Tylenol) 650 mg Q4H PRN PO 09/06/17 13:00 09/06/17 19:41 (Zofran Inj) 4 mg Q6H PRN IVP 09/06/17 13:00 09/21/17 19:40 (Reglan Inj) 5 mg Q6H PRN IV PUSH 09/06/17 13:00 (Restoril) 15 mg HS PRN PO 09/06/17 13:00 (Narcan Inj) 0.4 mg UNSCH PRN IV PUSH 09/06/17 13:00 (Milk Of Magnesia Liq) 30 ml Q12H PRN PO 09/06/17 13:00 (Senokot) 17.2 mg Q12H PRN PO 09/06/17 13:00 (Dulcolax Supp) 10 mg DAILY PRN RECTAL 09/06/17 13:00 (Lactulose Liq) 30 ml DAILY PRN PO 09/06/17 13:00 (Duoneb Neb) 1 ampule Q4HR NEB PRN NEB 09/06/17 15:00 (Marinol) 2.5 mg BID@11,16 PO 09/07/17 11:00 10/01/17 12:59 Pharmacy Profile Note 0 ml @ 0 mls/hr UNSCH OTHER 09/07/17 22:00 Pharmacy Profile Note 0 ml @ 0 mls/hr UNSCH OTHER 09/09/17 14:30 (Lactinex) 1 tab TID PO 09/11/17 09:00 10/01/17 12:59 Potassium Chloride/Sodium Chloride 1,000 ml @ 42 mls/hr [id number] IV 09/14/17 15:15 10/01/17 12:59 (NS Flush) See Protocol DAILY IV FLUSH 09/19/17 09:00 10/01/17 10:02 (NS Flush) See Protocol UNSCH PRN IV FLUSH 09/18/17 15:15 (Heparin Central Flush) See Protocol DAILY IV FLUSH 09/19/17 09:00 10/01/17 10:02 (Heparin Central Flush) See Protocol UNSCH PRN IV FLUSH 09/18/17 15:15 (NS Flush) UNSCH PRN IV FLUSH 09/18/17 15:15 (Mag-Ox) 400 mg DAILY PO 09/19/17 09:00 10/01/17 10:02 (Cardizem) 30 mg Q6HR PO 09/22/17 00:00 10/01/17 12:59 (KCl) 10 meq Q12HR PO 09/22/17 21:00 10/01/17 10:02 Vancomycin HCl 1250 mg/Sodium Chloride 262.5 ml @ 250 mls/hr Q24H IV 09/25/17 21:00 09/30/17 21:19 (Procardia Xl) 60 mg DAILY PO 09/28/17 09:30 10/01/17 10:01 Filgrastim 300 mcg/Dextrose 25 ml @ 100 mls/hr DAILY@14 IV 09/30/17 14:00 10/07/17 13:59 10/01/17 13:00 (Coumadin) 2.5 mg DAILY@1600 PO 10/01/17 16:00 A/P Problem List: (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 difficile colitis ICD Code: A04.7 - Enterocolitis due to Clostridium difficile Status: Resolved (7) Sepsis ICD Code: A41.9 - Sepsis, unspecified organism (8) Debility ICD Code: R53.81 - Other malaise Status: Acute (9) Atrial fibrillation with RVR ICD Code: I48.91 - Unspecified atrial fibrillation (10) Sepsis due to methicillin resistant Staphylococcus aureus (MRSA) ICD Code: A41.02 - Sepsis due to Methicillin resistant Staphylococcus aureus Assessment and Plan Mr. Werner is a 47-year-old male patient with a known medical history of non- Hodgkin B-cell lymphoma, HTN and history of PE who presented to the ED with complaints of generalized weakness, nausea, vomiting and cough x 1 week. 1. Sepsis, MRSA tricuspid valve endocarditis, MRSA bacteremia, bilateral pneumonia - Patient underwent Port removal 09/10. - Status post cefepime and Zithromax course - 2-D echocardiogram with tricuspid valve vegetation - ID consulted and following. is following-Vancomycin for 6 weeks through October 26 2. C difficile diarrhea/colitis. - On po Vancomycin, IV Flagyl discontinued. Continue oral Vancomycin total for 14 days. Treatment completes today. - Diarrhea resolved. 3. 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 Starting on Neupogen tomorrow 09/30. OK to DC to rehab as per hematology as long as Neupogen and IV antibiotic can be provided at rehab. - 10/01 Patient will continue to get Neupogen while inpatient as per hematology instructions. Patient will get Neulasta as an outpatient. 4. Atrial fibrillation with rapid ventricular rate - Resolved and now back in normal sinus rhythm. Monitored on telemetry. Cardiology consulted - Dr Azul. Continue by mouth Cardizem. 5. Microcytic hypochromic anemia: - Hemoglobin 6.6/Hematocrit 19.6 on presentation. Hemoccult negative. - s/p 2 units PRBC -Hb improved to 9 - monitor H&H - 10/01 Hemoglobin slowly trending down. Hb 8.7 today. 6. Severe protein calorie malnutrition due to the colitis - chronically ill, poor appetite - cont ensure to diet. - Continue Marinol. - Dietitian following. Will check phosphorus and magnesium in am. - Labs pending today. 7. Hypokalemia - Initially likely due to GI loss, however diarrhea resolved. - K 3.0 today - replace orally and monitor bmp. - 09/30 K still severely low at 2.9. Replaced orally. Monitor BMP. - repeat K on 09/30 normal. Monitor BMP 8. Essential Hypertension: - Procardia xl decreased to 60 mg po daily due to borderline hypotension. - BP stable. Continue current antihypertensives. 9. H/O PE, and nonocclusive thrombus in jugular vein - Had massive PE requiring tPA in April 2017. cont Warfarin - monitor INR. pharmacy following for coumadin management - 09/29 INR subtherpeutic at 1.8. Pharmacy managing dose. - 09/30 INR 1.9. Continue to monitor PT/INR. 10. Debility. - Continue PT which patient is not very compliant with. Patient encouraged to work with PT. DVT Prophylaxis: SCDs. on coumadin Discharge Planning Patient is medically stable for DC, will be able to DC once IV antibiotics are approve and set up for outpatient infusion. Patient to go home with [facility]. Discussed w hospice case manager. Problem Qualifiers (1) Non-Hodgkin lymphoma: Qualified Codes: C83.38 - Diffuse large b-cell lymphoma, lymph nodes of multiple sites (2) Anemia: Qualified Codes: D64.9 - Anemia, unspecified (3) Sepsis: Qualified Codes: A41.02 - Sepsis due to methicillin resistant Staphylococcus aureus Bart Liz MD Oct 01, 2017 14:08
[2017-10-01 14:39] LABS: ALBUMIN 1.7 GM/DL (3.4-5.0); AST (GOT) 10 U/L (15-37); BICARBONATE 29.8 MEQ/L (21.0-32.0); BLOOD UREA NITROGEN 6 MG/DL (7-18); CALCIUM 7.6 MG/DL (8.5-10.1); CHLORIDE 105 MEQ/L (98-107); CREATININE 0.58 MG/DL (0.60-1.30); GLOMERULAR FILTRATION RATE 180 ML/MIN (>89); GLUCOSE,RANDOM 81 MG/DL (74-106); SODIUM (NA) 141 MEQ/L (136-145)
[2017-10-01 14:41] LABS: ALT (GPT) 8 U/L (12-78)
[2017-10-01 14:42] LABS: ALKALINE PHOSPHATASE 73 U/L (45-117); TOTAL BILIRUBIN ADULT 0.3 MG/DL (0.2-1.0); TOTAL PROTEIN 4.4 GM/DL (6.4-8.2)
[2017-10-01] MEDS ORDERED: WARFARIN SOD 2.5 MG TAB PO SCH (16:00)
[2017-10-01] MEDS: WARFARIN SOD 3 MG TAB PO SCH (16:53)
[2017-10-01] MEDS: VANCOMYCIN INJ 1,250 MG in SODIUM CHLOR 0.9% 250 ML INJ 250 ML IV SCH (20:36)
[2017-10-02] VITALS (11 sets, daily range): BP systolic 122–140; BP diastolic 70–84; PULSE 75–86; RESP 16–19; TEMP 97.8–98.6; O2SAT 96–100
[2017-10-02] MEDS: DILTIAZEM HCL 30 MG TAB PO SCH ×5 (00:10→23:47)
[2017-10-02 05:09] LABS: INTERNATIONAL NORMALIZED RATIO 1.7 RATIO; PROTHROMBIN TIME - PATIENT 17.5 SEC (9.8-11.6)
[2017-10-02 05:19] LABS: CREATININE 0.54 MG/DL (0.60-1.30)
[2017-10-02] MEDS: POTASSIUM CHLORIDE 10 MEQ CONTROLLED RELEASE TAB PO SCH ×2 (09:00→19:44)
[2017-10-02] MEDS: LACTOBACILLUS ACIDOPHILUS TAB PO SCH ×3 (09:06→18:08)
[2017-10-02] MEDS: MAGNESIUM OXIDE 400 MG TAB PO SCH (09:06)
[2017-10-02] MEDS: NIFEdipine 60 MG SUSTAINED RELEASE TAB PO SCH (09:07)
[2017-10-02] MEDS: SODIUM CHLORIDE 0.9% FLUSH 10 ML FLUSH IV FLUSH SCH ×3 (09:08→19:44)
[2017-10-02] MEDS: DRONABINOL 2.5 MG CAP PO SCH ×2 (11:00→18:09)
--- NOTE | 2017-10-02 13:21 | PD.CARD.PN ---
Subjective Subjective Remarks No CP or SOB, no c/o today Objective Medications Current Medications Medications (Trade) Dose Ordered Sig/Shyla Route Start Time Stop Time Status Last Admin (NS Flush) 2 ml UNSCH PRN IV FLUSH 09/06/17 13:00 09/08/17 22:44 (NS Flush) 2 ml BID IV FLUSH 09/06/17 21:00 10/02/17 09:08 (Tylenol) 650 mg Q4H PRN PO 09/06/17 13:00 09/06/17 19:41 (Zofran Inj) 4 mg Q6H PRN IVP 09/06/17 13:00 09/21/17 19:40 (Reglan Inj) 5 mg Q6H PRN IV PUSH 09/06/17 13:00 (Restoril) 15 mg HS PRN PO 09/06/17 13:00 (Narcan Inj) 0.4 mg UNSCH PRN IV PUSH 09/06/17 13:00 (Milk Of Magnesia Liq) 30 ml Q12H PRN PO 09/06/17 13:00 (Senokot) 17.2 mg Q12H PRN PO 09/06/17 13:00 (Dulcolax Supp) 10 mg DAILY PRN RECTAL 09/06/17 13:00 (Lactulose Liq) 30 ml DAILY PRN PO 09/06/17 13:00 (Duoneb Neb) 1 ampule Q4HR NEB PRN NEB 09/06/17 15:00 (Marinol) 2.5 mg BID@11,16 PO 09/07/17 11:00 10/01/17 12:59 Pharmacy Profile Note 0 ml @ 0 mls/hr UNSCH OTHER 09/07/17 22:00 Pharmacy Profile Note 0 ml @ 0 mls/hr UNSCH OTHER 09/09/17 14:30 (Lactinex) 1 tab TID PO 09/11/17 09:00 10/02/17 09:06 Potassium Chloride/Sodium Chloride 1,000 ml @ 42 mls/hr [id number] IV 09/14/17 15:15 10/01/17 12:59 (NS Flush) See Protocol DAILY IV FLUSH 09/19/17 09:00 10/02/17 09:08 (NS Flush) See Protocol UNSCH PRN IV FLUSH 09/18/17 15:15 (Heparin Central Flush) See Protocol DAILY IV FLUSH 09/19/17 09:00 10/02/17 09:07 (Heparin Central Flush) See Protocol UNSCH PRN IV FLUSH 09/18/17 15:15 (NS Flush) UNSCH PRN IV FLUSH 09/18/17 15:15 (Mag-Ox) 400 mg DAILY PO 09/19/17 09:00 10/02/17 09:06 (Cardizem) 30 mg Q6HR PO 09/22/17 00:00 10/02/17 05:22 (KCl) 10 meq Q12HR PO 09/22/17 21:00 10/02/17 09:00 Vancomycin HCl 1250 mg/Sodium Chloride 262.5 ml @ 250 mls/hr Q24H IV 09/25/17 21:00 10/01/17 20:36 (Procardia Xl) 60 mg DAILY PO 09/28/17 09:30 10/02/17 09:07 Filgrastim 300 mcg/Dextrose 25 ml @ 100 mls/hr DAILY@14 IV 09/30/17 14:00 10/07/17 13:59 10/01/17 13:00 (Coumadin) 3 mg DAILY@1600 PO 10/01/17 16:00 10/01/17 16:53 Miscellaneous Information SPECIFIC LAB TO BE ... ONCE ONCE .XX 10/03/17 20:45 10/03/17 20:46 Vital Signs / I&O Vital Signs Date Time Temp Pulse Resp B/P (MAP) Pulse Ox O2 Delivery O2 Flow Rate FiO2 10/02/17 11:29 Room Air 10/02/17 08:00 98.6 76 16 140/84 (102) 99 10/02/17 04:08 98.0 82 16 135/78 (97) 98 10/02/17 02:38 98 10/02/17 00:07 98.5 86 16 127/83 (98) 99 10/01/17 20:50 98 Room Air 10/01/17 20:32 98.6 84 16 121/74 (90) 98 10/01/17 20:00 81 10/01/17 16:58 98.3 74 16 125/75 (92) 97 I/O 12/21/10/01/17 10/01/17 10/02/17 10/02/17 10/02/17 07:00 15:00 23:00 07:00 15:00 23:00 Intake Total 742.5 ml 156 ml 480 ml 480 ml Output Total 2000 ml 2000 ml 2225 ml Balance -1257.5 ml 156 ml -1520 ml -1745 ml Intake Oral 480 ml 480 ml 480 ml IV Total 262.5 ml 156 ml Output Urine Total 2000 ml 2000 ml 2225 ml # Bowel Movements 2 1 1 Physical Exam GENERAL: In NAD SKIN: Warm and dry. HEAD: Normocephalic. EYES: No scleral icterus. No injection or drainage. NECK: Supple, trachea midline. No JVD or lymphadenopathy. CARDIOVASCULAR: Regular rate and rhythm without murmurs, gallops, or rubs. RESPIRATORY: Breath sounds equal bilaterally. No accessory muscle use. GASTROINTESTINAL: Abdomen soft, non-tender, nondistended. MUSCULOSKELETAL: No cyanosis, or edema. Laboratory Laboratory Tests Test 10/02/17 04:30 Prothrombin Time 17.5 SEC Prothromb Time International Ratio 1.7 RATIO Creatinine 0.54 MG/DL Estimat Glomerular Filtration Rate 196 ML/MIN Assessment and Plan Problem List: (1) Atrial fibrillation with RVR ICD Codes: I48.91 - Unspecified atrial fibrillation (2) Non-Hodgkin lymphoma ICD Codes: C85.90 - Non-Hodgkin lymphoma, unspecified, unspecified site Status: Acute (3) Debility ICD Codes: R53.81 - Other malaise Status: Acute (4) Hypertension ICD Codes: I10 - Essential (primary) hypertension (5) Anemia ICD Codes: D64.9 - Anemia, unspecified Status: Acute Assessment and Plan No new cardiac issues. No significant arrhythmias with chemo. Continue monitoring on tele. Continue diltiazem. Increase activity, has been quite inactive most of the time. Will sign off. Problem Qualifiers (1) Non-Hodgkin lymphoma: Qualified Codes: C83.38 - Diffuse large b-cell lymphoma, lymph nodes of multiple sites (2) Anemia: Qualified Codes: D64.9 - Anemia, unspecified Mayra Azul MD Oct 02, 2017 13:21
[2017-10-02] MEDS: FILGRASTIM INJ 300 MCG in DEXTROSE 5% IN WATER INJ 24 ML IV SCH ×2 (14:00)
--- NOTE | 2017-10-02 14:18 | PD.ONC.PN ---
Subjective Subjective Remarks Afebrile overnight. Patient resting in room. No complaints. Does not want to work with physical therapy. Objective Data Date Time Temp Pulse Resp B/P (MAP) Pulse Ox O2 Delivery O2 Flow Rate FiO2 10/02/17 11:29 Room Air 10/02/17 08:00 98.6 76 16 140/84 (102) 99 10/02/17 04:08 98.0 82 16 135/78 (97) 98 10/02/17 02:38 98 10/02/17 00:07 98.5 86 16 127/83 (98) 99 10/01/17 20:50 98 Room Air 10/01/17 20:32 98.6 84 16 121/74 (90) 98 10/01/17 20:00 81 10/01/17 16:58 98.3 74 16 125/75 (92) 97 10/02/17 10/02/17 10/02/17 07:00 15:00 23:00 Intake Total 480 ml Output Total 2225 ml Balance -1745 ml Result Diagram: 09/30/17 0420 10/02/17 0430 Laboratory Results Laboratory Tests Test 10/02/17 04:30 Prothrombin Time 17.5 SEC Prothromb Time International Ratio 1.7 RATIO Creatinine 0.54 MG/DL Estimat Glomerular Filtration Rate 196 ML/MIN Administered Medications Medications (Trade) Dose Ordered Sig/Shyla Route PRN Reason Start Time Stop Time Status Last Admin Dose Admin Sodium Chloride (NS Flush) 2 ml UNSCH PRN IV FLUSH FLUSH AFTER USING IV ACCESS 09/06/17 13:00 09/08/17 22:44 Sodium Chloride (NS Flush) 2 ml BID IV FLUSH 09/06/17 21:00 10/02/17 09:08 Acetaminophen (Tylenol) 650 mg Q4H PRN PO headache, fever, pain 1-4 09/06/17 13:00 09/06/17 19:41 Ondansetron HCl (Zofran Inj) 4 mg Q6H PRN IVP NAUSEA OR VOMITING 09/06/17 13:00 09/21/17 19:40 Dronabinol (Marinol) 2.5 mg BID@11,16 PO 09/07/17 11:00 10/01/17 12:59 Lactobacillus Acidophilus (Lactinex) 1 tab TID PO 09/11/17 09:00 10/02/17 09:06 Potassium Chloride/Sodium Chloride 1,000 ml @ 42 mls/hr [id number] IV 09/14/17 15:15 10/01/17 12:59 Sodium Chloride (NS Flush) See Protocol DAILY IV FLUSH 09/19/17 09:00 10/02/17 09:08 Heparin Sodium (Porcine) (Heparin Central Flush) See Protocol DAILY IV FLUSH 09/19/17 09:00 10/02/17 09:07 Magnesium Oxide (Mag-Ox) 400 mg DAILY PO 09/19/17 09:00 10/02/17 09:06 Diltiazem HCl (Cardizem) 30 mg Q6HR PO 09/22/17 00:00 10/02/17 05:22 Potassium Chloride (KCl) 10 meq Q12HR PO 09/22/17 21:00 10/02/17 09:00 Vancomycin HCl 1250 mg/Sodium Chloride 262.5 ml @ 250 mls/hr Q24H IV 09/25/17 21:00 10/01/17 20:36 Nifedipine (Procardia Xl) 60 mg DAILY PO 09/28/17 09:30 10/02/17 09:07 Filgrastim 300 mcg/Dextrose 25 ml @ 100 mls/hr DAILY@14 IV 09/30/17 14:00 10/07/17 13:59 10/01/17 13:00 Warfarin Sodium (Coumadin) 3 mg DAILY@1600 PO 10/01/17 16:00 10/01/17 16:53 Objective Remarks GENERAL: Middle aged male sitting in bed watching TV SKIN: Warm and dry. HEAD: Normocephalic. EYES: No injection or drainage. NECK: Supple, trachea midline. CARDIOVASCULAR: Regular rate and rhythm RESPIRATORY: anterior canas clear. GASTROINTESTINAL: Abdomen soft, non-tender, nondistended. EXTREMITIES: No cyanosis NEUROLOGICAL: awake and alert, normal speech. moving all extremities Assessment/Plan Problem List: (1) Non-Hodgkin lymphoma ICD Codes: C85.90 - Non-Hodgkin lymphoma, unspecified, unspecified site Status: Acute Plan: --09/21: Rituxan started and then stopped as patient developed a.fib w/ RVR --09/22: cardiology consulted and cleared to resume chemotherapy --12/13: Rituxan rechallenged successfully --09/24: EPOCH D1 --09/25:EPOCH D2 --09/26:EPOCH D3 --09/28:EPOCH D4 started at 0300 --09/29 EPOCH to complete this afternoon. Start Neupogen 09/30. --10/01/17. Cont Neupogen, Noted L axillary adenopathy still palpable. --10/02/17: continue Neupogen for a total of 7 days. (2) Sepsis ICD Codes: A41.9 - Sepsis, unspecified organism Plan: --ID following --Most recent blood cultures show no growth --patient on IV Vanco --echo on 09/12 showed vegetation (3) Pulmonary emboli ICD Codes: I26.99 - Other pulmonary embolism without acute cor pulmonale Status: Chronic Plan: --on Coumadin Assessment 47y/o male with high-grade diffuse large B-cell lymphoma admitted for pneumonia and nausea/vomiting as well as anemia. History of pulmonary embolism currently on anticoagulation. Hypertension. Protein-calorie malnutrition. Plan 1. Continue Neupogen for a total of 7 days 2. monitor CBC 3. continue IV Vanco per ID Attending Statement The exam, history, and the medical decision-making described in the above note were completed with the assistance of the mid-level provider. I reviewed and agree with the findings presented. I attest that I had a [id number] encounter with the patient on the same day, and personally performed and documented my assessment and findings in the medical record. Pt seen and examined. Continue to have poor KPS. L axillary LN unchanged. Cont GCSF support. Promises to move and increase activity. Problem Qualifiers (1) Non-Hodgkin lymphoma: Qualified Codes: C83.38 - Diffuse large b-cell lymphoma, lymph nodes of multiple sites (2) Sepsis: Qualified Codes: A41.02 - Sepsis due to methicillin resistant Staphylococcus aureus Brenda Platt Oct 02, 2017 14:18 Joanna Castellon MD Oct 02, 2017 18:10
[2017-10-02 15:11] LABS: EOSINOPHIL # 0.1 TH/MM3 (0-0.4); EOSINOPHIL % 0.8 % (0.0-4.0); HEMATOCRIT 21.7 % (39.0-51.0); HEMOGLOBIN 7.1 GM/DL (13.0-17.0); LYMPHOCYTE # 0.5 TH/MM3 (1.0-4.8); MEAN CELL VOLUME 78.6 FL (80.0-100.0); MEAN CORPUSCULAR HEMOGLOBIN 25.9 PG (27.0-34.0); MEAN PLATELET VOLUME 8.4 FL (7.0-11.0); MONO % 0.1 % (0.0-8.0); NEUT % 95.1 % (16.0-70.0); PLATELET COUNT 54 TH/MM3 (150-450); RED BLOOD COUNT 2.76 MIL/MM3 (4.50-5.90); RED CELL DISTRIBUTION WIDTH 19.7 % (11.6-17.2); WHITE BLOOD COUNT 11.6 TH/MM3 (4.0-11.0)
[2017-10-02] MEDS: NS + KCL 40 MEQ INJ 1,000 ML IV SCH (16:00)
[2017-10-02] MEDS ORDERED: SODIUM CHLOR 0.9% 250 ML INJ 250 ML IV ONE (16:15)
--- NOTE | 2017-10-02 16:15 | HHI.PR ---
Subjective Remarks no complaints denies cp, sob, diarrhea states eating well. Objective Vitals Vital Signs Date Time Temp Pulse Resp B/P (MAP) Pulse Ox O2 Delivery O2 Flow Rate FiO2 10/02/17 11:29 Room Air 10/02/17 08:00 98.6 76 16 140/84 (102) 99 10/02/17 04:08 98.0 82 16 135/78 (97) 98 10/02/17 02:38 98 10/02/17 00:07 98.5 86 16 127/83 (98) 99 10/01/17 20:50 98 Room Air 10/01/17 20:32 98.6 84 16 121/74 (90) 98 10/01/17 20:00 81 10/01/17 16:58 98.3 74 16 125/75 (92) 97 I/O 10/01/17 10/01/17 10/01/17 10/02/17 10/02/17 10/02/17 07:00 15:00 23:00 07:00 15:00 23:00 Intake Total 742.5 ml 156 ml 480 ml 480 ml Output Total 2000 ml 2000 ml 2225 ml Balance -1257.5 ml 156 ml -1520 ml -1745 ml Intake Oral 480 ml 480 ml 480 ml IV Total 262.5 ml 156 ml Output Urine Total 2000 ml 2000 ml 2225 ml # Bowel Movements 2 1 1 Result Diagram: 10/02/17 1440 10/02/17 0430 Imaging Last Impressions Chest X-Ray 09/18/17 0000 Signed Impressions: Service Date/Time: Monday, September 18, 2017 15:43 - CONCLUSION: 1. The left PICC line is in good position at the atrial junction. 2. Stable bilateral bibasilar airspace disease, left greater than right. 3. Probable trace left pleural effusion. Liang Peralta MD Upper Extremity Ultrasound 09/10/17 0000 Signed Impressions: Service Date/Time: August 13:56 - CONCLUSION: 1. Nonocclusive thrombus in the jugular vein. 2. The other vessels are patent. 3. Solid lobular mass in the supraclavicular region consistent with adenopathy in this patient with history of lymphoma. Goldy Suarez MD Port Line Revision 09/08/17 0000 Signed Impressions: Service Date/Time: Friday, September 08, 2017 00:00 - CONCLUSION: Uncomplicated port removal as above. Adama Briceño MD Chest CT 09/06/17 0000 Signed Impressions: Service Date/Time: Wednesday, September 06, 2017 15:57 - CONCLUSION: 1. Patchy bilateral air space consolidation in both lung bases. Differential diagnosis includes bronchopneumonia and aspiration. Small pleural effusions improved from April. 2. Extensive mediastinal adenopathy also improved from April. Travis Ruffin MD Objective Remarks GENERAL: Cachectic chronically ill appearing -[place] male patient. SKIN: Warm and dry. HEAD: Normocephalic. EYES: No scleral icterus. No injection or drainage. NECK: Supple, trachea midline. No JVD or lymphadenopathy. CARDIOVASCULAR: Regular rate and rhythm without murmurs, gallops, or rubs. RESPIRATORY: Breath sounds equal bilaterally. No accessory muscle use. GASTROINTESTINAL: Abdomen soft, non-tender, nondistended. EXTREMITIES: No pedal edema. NEUROLOGICAL: Awake, alert, and oriented x 3. Non-focal. Procedures None. Medications and IVs Current Medications Medications (Trade) Dose Ordered Sig/Shyla Route Start Time Stop Time Status Last Admin (NS Flush) 2 ml UNSCH PRN IV FLUSH 09/06/17 13:00 09/08/17 22:44 (NS Flush) 2 ml BID IV FLUSH 09/06/17 21:00 10/02/17 09:08 (Tylenol) 650 mg Q4H PRN PO 09/06/17 13:00 09/06/17 19:41 (Zofran Inj) 4 mg Q6H PRN IVP 09/06/17 13:00 09/21/17 19:40 (Reglan Inj) 5 mg Q6H PRN IV PUSH 09/06/17 13:00 (Restoril) 15 mg HS PRN PO 09/06/17 13:00 (Narcan Inj) 0.4 mg UNSCH PRN IV PUSH 09/06/17 13:00 (Milk Of Magnesia Liq) 30 ml Q12H PRN PO 09/06/17 13:00 (Senokot) 17.2 mg Q12H PRN PO 09/06/17 13:00 (Dulcolax Supp) 10 mg DAILY PRN RECTAL 09/06/17 13:00 (Lactulose Liq) 30 ml DAILY PRN PO 09/06/17 13:00 (Duoneb Neb) 1 ampule Q4HR NEB PRN NEB 09/06/17 15:00 (Marinol) 2.5 mg BID@11,16 PO 09/07/17 11:00 10/02/17 11:00 Pharmacy Profile Note 0 ml @ 0 mls/hr UNSCH OTHER 09/07/17 22:00 Pharmacy Profile Note 0 ml @ 0 mls/hr UNSCH OTHER 09/09/17 14:30 (Lactinex) 1 tab TID PO 09/11/17 09:00 10/02/17 13:00 Potassium Chloride/Sodium Chloride 1,000 ml @ 42 mls/hr [id number] IV 09/14/17 15:15 10/02/17 16:00 (NS Flush) See Protocol DAILY IV FLUSH 09/19/17 09:00 10/02/17 09:08 (NS Flush) See Protocol UNSCH PRN IV FLUSH 09/18/17 15:15 (Heparin Central Flush) See Protocol DAILY IV FLUSH 09/19/17 09:00 10/02/17 09:07 (Heparin Central Flush) See Protocol UNSCH PRN IV FLUSH 09/18/17 15:15 (NS Flush) UNSCH PRN IV FLUSH 09/18/17 15:15 (Mag-Ox) 400 mg DAILY PO 09/19/17 09:00 10/02/17 09:06 (Cardizem) 30 mg Q6HR PO 09/22/17 00:00 10/02/17 12:00 (KCl) 10 meq Q12HR PO 09/22/17 21:00 10/02/17 09:00 Vancomycin HCl 1250 mg/Sodium Chloride 262.5 ml @ 250 mls/hr Q24H IV 09/25/17 21:00 10/01/17 20:36 (Procardia Xl) 60 mg DAILY PO 09/28/17 09:30 10/02/17 09:07 Filgrastim 300 mcg/Dextrose 25 ml @ 100 mls/hr DAILY@14 IV 09/30/17 14:00 10/07/17 13:59 10/02/17 14:00 (Coumadin) 3 mg DAILY@1600 PO 10/01/17 16:00 10/01/17 16:53 Miscellaneous Information SPECIFIC LAB TO BE .. ONCE ONCE .XX 10/03/17 20:45 10/03/17 20:46 A/P Problem List: (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 difficile colitis ICD Code: A04.7 - Enterocolitis due to Clostridium difficile Status: Resolved (7) Sepsis ICD Code: A41.9 - Sepsis, unspecified organism (8) Debility ICD Code: R53.81 - Other malaise Status: Acute (9) Atrial fibrillation with RVR ICD Code: I48.91 - Unspecified atrial fibrillation (10) Sepsis due to methicillin resistant Staphylococcus aureus (MRSA) ICD Code: A41.02 - Sepsis due to Methicillin resistant Staphylococcus aureus Assessment and Plan Mr. Werner is a 47-year-old male patient with a known medical history of non- Hodgkin B-cell lymphoma, HTN and history of PE who presented to the ED with complaints of generalized weakness, nausea, vomiting and cough x 1 week. 1. Sepsis, MRSA tricuspid valve endocarditis, MRSA bacteremia, bilateral pneumonia - Patient underwent Port removal 09/10. - Status post cefepime and Zithromax course - 2-D echocardiogram with tricuspid valve vegetation - ID consulted and following. is following-Vancomycin for 6 weeks through October 26 2. C difficile diarrhea/colitis. - On po Vancomycin, IV Flagyl discontinued. Continue oral Vancomycin total for 14 days. Treatment completes today. - Diarrhea resolved. 3. 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 Starting on Neupogen tomorrow 09/30. OK to DC to rehab as per hematology as long as Neupogen and IV antibiotic can be provided at rehab. - 10/02 Patient will continue to get Neupogen x 7 days while inpatient as per hematology instructions. Patient will get Neulasta as an outpatient. 4. Atrial fibrillation with rapid ventricular rate - Resolved and now back in normal sinus rhythm. Monitored on telemetry. Cardiology consulted - Dr Azul. Continue by mouth Cardizem. 5. Microcytic hypochromic anemia: - Hemoglobin 6.6/Hematocrit 19.6 on presentation. Hemoccult negative. - s/p 2 units PRBC -Hb improved to 9 - monitor H&H - 10/01 Hemoglobin slowly trending down. Hb 8.7 today. - 10/02 hemoglobin is 7.1 today - Will transfuse 2 units of prbc's - discussed with Brenda Preciado ([facility]). 6. Severe protein calorie malnutrition due to the colitis - chronically ill, poor appetite - cont ensure to diet. - Continue Marinol. - Dietitian following. Will check phosphorus and magnesium in am. - Labs pending today. 7. Hypokalemia - Initially likely due to GI loss, however diarrhea resolved. - K 3.0 today - replace orally and monitor bmp. - 09/30 K still severely low at 2.9. Replaced orally. Monitor BMP. - repeat K on 09/30 normal. Monitor BMP 8. Essential Hypertension: - Procardia xl decreased to 60 mg po daily due to borderline hypotension. - BP stable. Continue current antihypertensives. 9. H/O PE, and nonocclusive thrombus in jugular vein - Had massive PE requiring tPA in April 2017. cont Warfarin - monitor INR. pharmacy following for coumadin management - 09/29 INR subtherpeutic at 1.8. Pharmacy managing dose. - 09/30 INR 1.9. Continue to monitor PT/INR. 10. Debility. - Continue PT which patient is not very compliant with. Patient encouraged to work with PT. DVT Prophylaxis: SCDs. on coumadin Discharge Planning Patient is medically stable for DC, will be able to DC once IV antibiotics are approve and set up for outpatient infusion. Patient to go home with [facility]. Discussed w telephonic case manager. Problem Qualifiers (1) Non-Hodgkin lymphoma: Qualified Codes: C83.38 - Diffuse large b-cell lymphoma, lymph nodes of multiple sites (2) Anemia: Qualified Codes: D64.9 - Anemia, unspecified (3) Sepsis: Qualified Codes: A41.02 - Sepsis due to methicillin resistant Staphylococcus aureus Bart Liz MD Oct 02, 2017 16:15
[2017-10-02] MEDS ORDERED: FUROSEMIDE 20 MG/2 ML VIAL IV PUSH ONE (17:00)
[2017-10-02] MEDS: WARFARIN SOD 3 MG TAB PO SCH (18:09)
[2017-10-03 03:30] VITALS: BP 126/67; PULSE 74; RESP 16; TEMP 98.5; O2SAT 98
[2017-10-03] MEDS: VANCOMYCIN INJ 1,250 MG in SODIUM CHLOR 0.9% 250 ML INJ 250 ML IV SCH ×2 (03:34→22:01)
[2017-10-03] MEDS: DILTIAZEM HCL 30 MG TAB PO SCH ×4 (05:41→23:31)
[2017-10-03 06:02] LABS: AUTOMATED NEUTROPHIL # 11.8 TH/MM3 (1.8-7.7); BASOPHIL % 0.1 % (0.0-2.0); EOSINOPHIL # 0.1 TH/MM3 (0-0.4); EOSINOPHIL % 0.5 % (0.0-4.0); HEMATOCRIT 29.7 % (39.0-51.0); HEMOGLOBIN 10.2 GM/DL (13.0-17.0); LYMPH % 3.3 % (9.0-44.0); LYMPHOCYTE # 0.4 TH/MM3 (1.0-4.8); MEAN CORPUSCULAR HEMOGLOBIN 27.5 PG (27.0-34.0); MEAN CORPUSCULAR HGB CONC 34.3 % (32.0-36.0); MEAN PLATELET VOLUME 8.3 FL (7.0-11.0); MONO % 0.4 % (0.0-8.0); MONOCYTE # 0.1 TH/MM3 (0-0.9); NEUT % 95.7 % (16.0-70.0); PLATELET COUNT 40 TH/MM3 (150-450); RED BLOOD COUNT 3.72 MIL/MM3 (4.50-5.90); RED CELL DISTRIBUTION WIDTH 17.5 % (11.6-17.2); WHITE BLOOD COUNT 12.4 TH/MM3 (4.0-11.0)
[2017-10-03 06:18] LABS: INTERNATIONAL NORMALIZED RATIO 1.8 RATIO; PROTHROMBIN TIME - PATIENT 18.7 SEC (9.8-11.6)
[2017-10-03 06:31] LABS: ALBUMIN 1.9 GM/DL (3.4-5.0); AST (GOT) 7 U/L (15-37); BICARBONATE 31.3 MEQ/L (21.0-32.0); BLOOD UREA NITROGEN 5 MG/DL (7-18); CALCIUM 7.5 MG/DL (8.5-10.1); CHLORIDE 100 MEQ/L (98-107); CREATININE 0.58 MG/DL (0.60-1.30); GLOMERULAR FILTRATION RATE 180 ML/MIN (>89); GLUCOSE,RANDOM 88 MG/DL (74-106); SODIUM (NA) 138 MEQ/L (136-145)
[2017-10-03 06:32] LABS: ALT (GPT) 6 U/L (12-78)
[2017-10-03 06:34] LABS: ALKALINE PHOSPHATASE 88 U/L (45-117); TOTAL BILIRUBIN ADULT 0.6 MG/DL (0.2-1.0)
[2017-10-03] MEDS: SODIUM CHLORIDE 0.9% FLUSH 10 ML FLUSH IV FLUSH SCH ×3 (09:00→21:55)
--- NOTE | 2017-10-03 09:17 | PD.ONC.PN ---
Subjective Subjective Remarks Afebrile overnight. Patient resting in bed in nad. No complaints. No overnight events. Eating breakfast this morning. Objective Data Date Time Temp Pulse Resp B/P (MAP) Pulse Ox O2 Delivery O2 Flow Rate FiO2 10/03/17 03:30 98.5 74 16 126/67 98 10/02/17 23:52 98.6 75 19 130/74 98 10/02/17 23:26 98.6 79 16 126/72 98 10/02/17 23:14 82 10/02/17 20:00 100 Room Air 10/02/17 19:50 98.6 84 18 126/70 100 10/02/17 19:38 98.5 81 18 122/71 96 10/02/17 18:07 98.4 76 16 129/77 (94) 97 10/02/17 12:55 97.8 84 16 122/74 (90) 100 10/02/17 11:29 Room Air 10/03/17 10/03/17 10/03/17 07:00 15:00 23:00 Intake Total 2030 ml Output Total 2575 ml Balance -545 ml Result Diagram: 10/03/17 0540 10/03/17 0540 Laboratory Results Laboratory Tests Test 10/02/17 14:40 10/03/17 05:40 White Blood Count 11.6 TH/MM3 12.4 TH/MM3 Red Blood Count 2.76 MIL/MM3 3.72 MIL/MM3 Hemoglobin 7.1 GM/DL 10.2 GM/DL Hematocrit 21.7 % 29.7 % Mean Corpuscular Volume 78.6 FL 80.0 FL Mean Corpuscular Hemoglobin 25.9 PG 27.5 PG Mean Corpuscular Hemoglobin Concent 33.0 % 34.3 % Red Cell Distribution Width 19.7 % 17.5 % Platelet Count 54 TH/MM3 40 TH/MM3 Mean Platelet Volume 8.4 FL 8.3 FL Neutrophils (%) (Auto) 95.1 % 95.7 % Lymphocytes (%) (Auto) 4.0 % 3.3 % Monocytes (%) (Auto) 0.1 % 0.4 % Eosinophils (%) (Auto) 0.8 % 0.5 % Basophils (%) (Auto) 0.0 % 0.1 % Neutrophils # (Auto) 11.0 TH/MM3 11.8 TH/MM3 Lymphocytes # (Auto) 0.5 TH/MM3 0.4 TH/MM3 Monocytes # (Auto) 0.0 TH/MM3 0.1 TH/MM3 Eosinophils # (Auto) 0.1 TH/MM3 0.1 TH/MM3 Basophils # (Auto) 0.0 TH/MM3 0.0 TH/MM3 CBC Comment AUTO DIFF AUTO DIFF Differential Comment AUTO DIFF CONFIRMED AUTO DIFF CONFIRMED Platelet Estimate LOW Platelet Morphology Comment NORMAL Prothrombin Time 18.7 SEC Prothromb Time International Ratio 1.8 RATIO Blood Urea Nitrogen 5 MG/DL Creatinine 0.58 MG/DL Random Glucose 88 MG/DL Total Protein 5.0 GM/DL Albumin 1.9 GM/DL Calcium Level 7.5 MG/DL Alkaline Phosphatase 88 U/L Aspartate Amino Transf (AST/SGOT) 7 U/L Alanine Aminotransferase (ALT/SGPT) 6 U/L Total Bilirubin 0.6 MG/DL Sodium Level 138 MEQ/L Potassium Level 3.3 MEQ/L Chloride Level 100 MEQ/L Carbon Dioxide Level 31.3 MEQ/L Anion Gap 7 MEQ/L Estimat Glomerular Filtration Rate 180 ML/MIN Administered Medications Medications (Trade) Dose Ordered Sig/Shyla Route PRN Reason Start Time Stop Time Status Last Admin Dose Admin Sodium Chloride (NS Flush) 2 ml UNSCH PRN IV FLUSH FLUSH AFTER USING IV ACCESS 09/06/17 13:00 09/08/17 22:44 Sodium Chloride (NS Flush) 2 ml BID IV FLUSH 09/06/17 21:00 10/02/17 09:08 Acetaminophen (Tylenol) 650 mg Q4H PRN PO headache, fever, pain 1-4 09/06/17 13:00 09/06/17 19:41 Ondansetron HCl (Zofran Inj) 4 mg Q6H PRN IVP NAUSEA OR VOMITING 09/06/17 13:00 09/21/17 19:40 Dronabinol (Marinol) 2.5 mg BID@11,16 PO 09/07/17 11:00 10/02/17 18:09 Lactobacillus Acidophilus (Lactinex) 1 tab TID PO 09/11/17 09:00 10/02/17 18:08 Potassium Chloride/Sodium Chloride 1,000 ml @ 42 mls/hr [id number] IV 09/14/17 15:15 10/02/17 16:00 Sodium Chloride (NS Flush) See Protocol DAILY IV FLUSH 09/19/17 09:00 10/02/17 09:08 Heparin Sodium (Porcine) (Heparin Central Flush) See Protocol DAILY IV FLUSH 09/19/17 09:00 10/02/17 09:07 Magnesium Oxide (Mag-Ox) 400 mg DAILY PO 09/19/17 09:00 10/02/17 09:06 Diltiazem HCl (Cardizem) 30 mg Q6HR PO 09/22/17 00:00 10/03/17 05:41 Potassium Chloride (KCl) 10 meq Q12HR PO 09/22/17 21:00 10/02/17 19:44 Vancomycin HCl 1250 mg/Sodium Chloride 262.5 ml @ 250 mls/hr Q24H IV 09/25/17 21:00 10/03/17 03:34 Nifedipine (Procardia Xl) 60 mg DAILY PO 09/28/17 09:30 10/02/17 09:07 Filgrastim 300 mcg/Dextrose 25 ml @ 100 mls/hr DAILY@14 IV 09/30/17 14:00 10/07/17 13:59 10/02/17 14:00 Warfarin Sodium (Coumadin) 3 mg DAILY@1600 PO 10/01/17 16:00 10/02/17 18:09 Objective Remarks GENERAL: Middle aged male lying in bed eating breakfast and watching TV SKIN: Warm and dry. HEAD: Normocephalic. EYES: No injection or drainage. NECK: Supple, trachea midline. CARDIOVASCULAR: Regular rate and rhythm RESPIRATORY: anterior canas clear. GASTROINTESTINAL: Abdomen soft, non-tender, nondistended. EXTREMITIES: No cyanosis NEUROLOGICAL: aox3. normal speech. Assessment/Plan Problem List: (1) Sepsis ICD Codes: A41.9 - Sepsis, unspecified organism Plan: --ID following --Most recent blood cultures show no growth --patient on IV Vanco --echo on 09/12 showed vegetation (2) Pulmonary emboli ICD Codes: I26.99 - Other pulmonary embolism without acute cor pulmonale Status: Chronic Plan: --on Coumadin Assessment 47y/o male with high-grade diffuse large B-cell lymphoma admitted for pneumonia and nausea/vomiting as well as anemia. History of pulmonary embolism currently on anticoagulation. Hypertension. Protein-calorie malnutrition. Plan 1. Continue Neupogen 2. monitor CBC 3. continue antibiotics Attending Statement The exam, history, and the medical decision-making described in the above note were completed with the assistance of the mid-level provider. I reviewed and agree with the findings presented. I attest that I had a [id number] encounter with the patient on the same day, and personally performed and documented my assessment and findings in the medical record. remains stable and on Coumadin for PE and vancomycin for sepsis. will continue vanco and Coumadin but if there is a significant fall in platelets may need to hold Coumadin. check cbc plat in am. I also told him he might want to reconsider going to a tertiary care center for either transplant or CAR T cells. Problem Qualifiers (1) Sepsis: Qualified Codes: A41.02 - Sepsis due to methicillin resistant Staphylococcus aureus Brenda Platt Oct 03, 2017 09:17 George Yen MD Oct 03, 2017 10:03
[2017-10-03 09:39] VITALS: BP 140/73; PULSE 75; RESP 16; TEMP 98.2; O2SAT 98
[2017-10-03] MEDS: NIFEdipine 60 MG SUSTAINED RELEASE TAB PO SCH (09:46)
[2017-10-03] MEDS: POTASSIUM CHLORIDE 10 MEQ CONTROLLED RELEASE TAB PO SCH ×2 (09:46→22:02)
[2017-10-03] MEDS: LACTOBACILLUS ACIDOPHILUS TAB PO SCH ×3 (09:46→18:14)
[2017-10-03] MEDS: MAGNESIUM OXIDE 400 MG TAB PO SCH (09:46)
[2017-10-03] MEDS: DRONABINOL 2.5 MG CAP PO SCH ×2 (13:20→16:40)
[2017-10-03] MEDS: FILGRASTIM INJ 300 MCG in DEXTROSE 5% IN WATER INJ 24 ML IV SCH ×2 (13:21)
[2017-10-03 13:25] VITALS: BP 142/80; PULSE 68; RESP 16; TEMP 98.7; O2SAT 98
[2017-10-03] MEDS: WARFARIN SOD 3 MG TAB PO SCH (16:40)
[2017-10-03 16:47] VITALS: BP 120/75; PULSE 82; RESP 16; TEMP 98.9; O2SAT 99
--- NOTE | 2017-10-03 16:49 | HHI.PR ---
Subjective Remarks Follow-up sepsis/non-Hodgkin lymphoma 10/03/17-patient seen and examined, denies any acute event overnight. Currently afebrile. Objective Vitals Vital Signs Date Time Temp Pulse Resp B/P (MAP) Pulse Ox O2 Delivery O2 Flow Rate FiO2 10/03/17 13:25 98.7 68 16 142/80 (100) 98 10/03/17 09:39 Room Air 10/03/17 09:39 98.2 75 16 140/73 (95) 98 10/03/17 03:30 98.5 74 16 126/67 98 10/02/17 23:52 98.6 75 19 130/74 98 10/02/17 23:26 98.6 79 16 126/72 98 10/02/17 23:14 82 10/02/17 20:00 100 Room Air 10/02/17 19:50 98.6 84 18 126/70 100 10/02/17 19:38 98.5 81 18 122/71 96 10/02/17 18:07 98.4 76 16 129/77 (94) 97 I/O 10/02/17 10/02/17 10/02/17 10/03/17 10/03/17 10/03/17 07:00 15:00 23:00 07:00 15:00 23:00 Intake Total 480 ml 25 ml 855 ml 2030 ml 25 ml Output Total 2225 ml 2575 ml Balance -1745 ml 25 ml 855 ml -545 ml 25 ml Intake Oral 480 ml 580 ml IV Total 25 ml 855 ml 25 ml Packed Cells 1450 ml Output Urine Total 2225 ml 2575 ml # Bowel Movements 1 Result Diagram: 10/03/17 0540 10/03/17 0540 Imaging Last Impressions Chest X-Ray 09/18/17 0000 Signed Impressions: Service Date/Time: Monday, September 18, 2017 15:43 - CONCLUSION: 1. The left PICC line is in good position at the atrial junction. 2. Stable bilateral bibasilar airspace disease, left greater than right. 3. Probable trace left pleural effusion. Liang Peralta MD Upper Extremity Ultrasound 09/10/17 0000 Signed Impressions: Service Date/Time: August 13:56 - CONCLUSION: 1. Nonocclusive thrombus in the jugular vein. 2. The other vessels are patent. 3. Solid lobular mass in the supraclavicular region consistent with adenopathy in this patient with history of lymphoma. Goldy Suarez MD Port Line Revision 09/08/17 0000 Signed Impressions: Service Date/Time: Friday, September 08, 2017 00:00 - CONCLUSION: Uncomplicated port removal as above. Adama Briceño MD Chest CT 09/06/17 0000 Signed Impressions: Service Date/Time: Wednesday, September 06, 2017 15:57 - CONCLUSION: 1. Patchy bilateral air space consolidation in both lung bases. Differential diagnosis includes bronchopneumonia and aspiration. Small pleural effusions improved from April. 2. Extensive mediastinal adenopathy also improved from April. Travis Ruffin MD Objective Remarks GENERAL: NAD SKIN: Warm and dry. HEAD: Normocephalic. EYES: No scleral icterus. No injection or drainage. NECK: Supple, trachea midline. No JVD or lymphadenopathy. CARDIOVASCULAR: Regular rate and rhythm without murmurs, gallops, or rubs. RESPIRATORY: Breath sounds equal bilaterally. No accessory muscle use. GASTROINTESTINAL: Abdomen soft, non-tender, nondistended. MUSCULOSKELETAL: No cyanosis, or edema. BACK: Nontender without obvious deformity. No CVA tenderness. Procedures None. 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 difficile colitis ICD Code: A04.7 - Enterocolitis due to Clostridium difficile Status: Resolved (7) Sepsis ICD Code: A41.9 - Sepsis, unspecified organism (8) Debility ICD Code: R53.81 - Other malaise Status: Acute (9) Atrial fibrillation with RVR ICD Code: I48.91 - Unspecified atrial fibrillation (10) Sepsis due to methicillin resistant Staphylococcus aureus (MRSA) ICD Code: A41.02 - Sepsis due to Methicillin resistant Staphylococcus aureus Assessment and Plan 47 year-old man with 1. Sepsis, MRSA tricuspid valve endocarditis, MRSA bacteremia, bilateral pneumonia - Patient underwent Port removal 09/10. - 2-D echocardiogram with tricuspid valve vegetation - ID consulted and following. Continue with Vancomycin for 6 weeks through October 26 2. C difficile diarrhea/colitis. - s/p Vancomycin PO 14 days total - Diarrhea resolved. 3. 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 Patient will get Neulasta as an outpatient. 4. Atrial fibrillation with rapid ventricular rate - Currently rate controlled Continue by mouth Cardizem. 5. Microcytic hypochromic anemia: - Improved Status post blood transfusion 6. Severe protein calorie malnutrition due to the colitis - Continue Marinol. - Dietitian following. 7. Hypokalemia - Replace electrolyte and monitor 8. Essential Hypertension: - Procardia xl 60 mg po daily - BP stable. Continue current antihypertensives. 9. H/O PE, and nonocclusive thrombus in jugular vein - Had massive PE requiring tPA in April 2017. cont Warfarin 10. Debility. - Continue PT which patient is not very compliant with. Patient encouraged to work with PT. DVT Prophylaxis: SCDs. on coumadin Problem Qualifiers (1) Non-Hodgkin lymphoma: Qualified Codes: C83.38 - Diffuse large b-cell lymphoma, lymph nodes of multiple sites (2) Anemia: Qualified Codes: D64.9 - Anemia, unspecified (3) Sepsis: Qualified Codes: A41.02 - Sepsis due to methicillin resistant Staphylococcus aureus Tray Turner MD Oct 03, 2017 16:49
[2017-10-03 20:00] VITALS: BP 129/80; PULSE 82; RESP 12; TEMP 98.4; O2SAT 99
[2017-10-03] MEDS ORDERED: PHARMACY ORDERED LAB ONE (20:45)
[2017-10-03 23:00] VITALS: PULSE 82
[2017-10-04] VITALS (7 sets, daily range): BP systolic 122–136; BP diastolic 76–81; PULSE 63–82; RESP 12–16; TEMP 98.5–99.4; O2SAT 94–99
[2017-10-04] MEDS: NS + KCL 40 MEQ INJ 1,000 ML IV SCH (00:59)
[2017-10-04] MEDS: DILTIAZEM HCL 30 MG TAB PO SCH ×4 (05:29→23:59)
[2017-10-04 05:49] LABS: AUTOMATED NEUTROPHIL # 2.2 TH/MM3 (1.8-7.7); BASOPHIL % 0.2 % (0.0-2.0); EOSINOPHIL % 1.5 % (0.0-4.0); HEMATOCRIT 29.9 % (39.0-51.0); HEMOGLOBIN 10.1 GM/DL (13.0-17.0); LYMPH % 12.6 % (9.0-44.0); LYMPHOCYTE # 0.3 TH/MM3 (1.0-4.8); MEAN CELL VOLUME 80.4 FL (80.0-100.0); MEAN CORPUSCULAR HEMOGLOBIN 27.2 PG (27.0-34.0); MEAN CORPUSCULAR HGB CONC 33.9 % (32.0-36.0); MEAN PLATELET VOLUME 8.2 FL (7.0-11.0); MONO % 0.5 % (0.0-8.0); NEUT % 85.2 % (16.0-70.0); PLATELET COUNT 25 TH/MM3 (150-450); RED BLOOD COUNT 3.72 MIL/MM3 (4.50-5.90); RED CELL DISTRIBUTION WIDTH 17.4 % (11.6-17.2); WHITE BLOOD COUNT 2.5 TH/MM3 (4.0-11.0)
[2017-10-04 05:58] LABS: PROTHROMBIN TIME - PATIENT 20.1 SEC (9.8-11.6)
[2017-10-04 06:08] LABS: CREATININE 0.55 MG/DL (0.60-1.30)
[2017-10-04 06:31] LABS: BANDS 2 % (0-6); LYMPHOCYTES 12 % (9-44); NEUTROPHIL # MANUAL DIFF 2.2 TH/MM3 (1.8-7.7); POLYS (SEG NEUTROPHILS) 85 % (16-70)
[2017-10-04 06:32] LABS: OVALOCYTES 1+ (NORMAL)
[2017-10-04] MEDS: MAGNESIUM OXIDE 400 MG TAB PO SCH (08:29)
[2017-10-04] MEDS: NIFEdipine 60 MG SUSTAINED RELEASE TAB PO SCH (08:29)
[2017-10-04] MEDS: LACTOBACILLUS ACIDOPHILUS TAB PO SCH ×3 (08:29→18:10)
[2017-10-04] MEDS: POTASSIUM CHLORIDE 10 MEQ CONTROLLED RELEASE TAB PO SCH ×2 (08:30→21:24)
[2017-10-04] MEDS: SODIUM CHLORIDE 0.9% FLUSH 10 ML FLUSH IV FLUSH SCH ×3 (08:32→21:25)
--- NOTE | 2017-10-04 09:54 | PD.ONC.PN ---
Subjective Subjective Remarks Afebrile overnight. Patient resting in bed in nad. No complaints. Objective Data Date Time Temp Pulse Resp B/P (MAP) Pulse Ox O2 Delivery O2 Flow Rate FiO2 10/04/17 04:00 98.6 74 16 127/81 (96) 99 10/04/17 00:00 98.5 80 12 122/76 (91) 98 10/03/17 23:00 82 10/03/17 20:00 98.4 82 12 129/80 (96) 99 10/03/17 20:00 99 Room Air 10/03/17 16:47 98.9 82 16 120/75 (90) 99 10/03/17 13:25 98.7 68 16 142/80 (100) 98 10/04/17 10/04/17 10/04/17 07:00 15:00 23:00 Intake Total 720 ml Output Total 2150 ml Balance -1430 ml Result Diagram: 10/04/17 0520 10/04/17 0520 Laboratory Results Laboratory Tests Test 10/03/17 21:58 10/04/17 05:20 Vancomycin Level Trough 14.5 MCG/ML White Blood Count 2.5 TH/MM3 Red Blood Count 3.72 MIL/MM3 Hemoglobin 10.1 GM/DL Hematocrit 29.9 % Mean Corpuscular Volume 80.4 FL Mean Corpuscular Hemoglobin 27.2 PG Mean Corpuscular Hemoglobin Concent 33.9 % Red Cell Distribution Width 17.4 % Platelet Count 25 TH/MM3 Mean Platelet Volume 8.2 FL Neutrophils (%) (Auto) 85.2 % Lymphocytes (%) (Auto) 12.6 % Monocytes (%) (Auto) 0.5 % Eosinophils (%) (Auto) 1.5 % Basophils (%) (Auto) 0.2 % Neutrophils # (Auto) 2.2 TH/MM3 Lymphocytes # (Auto) 0.3 TH/MM3 Monocytes # (Auto) 0.0 TH/MM3 Eosinophils # (Auto) 0.0 TH/MM3 Basophils # (Auto) 0.0 TH/MM3 CBC Comment AUTO DIFF Differential Total Cells Counted 100 Neutrophils % (Manual) 85 % Band Neutrophils % 2 % Lymphocytes % 12 % Eosinophils % 1 % Neutrophils # (Manual) 2.2 TH/MM3 Differential Comment FINAL DIFF MANUAL Platelet Estimate LOW Platelet Morphology Comment NORMAL Ovalocytes 1+ Prothrombin Time 20.1 SEC Prothromb Time International Ratio 2.0 RATIO Creatinine 0.55 MG/DL Estimat Glomerular Filtration Rate 192 ML/MIN Administered Medications Medications (Trade) Dose Ordered Sig/Shyla Route PRN Reason Start Time Stop Time Status Last Admin Dose Admin Sodium Chloride (NS Flush) 2 ml UNSCH PRN IV FLUSH FLUSH AFTER USING IV ACCESS 09/06/17 13:00 09/08/17 22:44 Sodium Chloride (NS Flush) 2 ml BID IV FLUSH 09/06/17 21:00 10/03/17 21:55 Acetaminophen (Tylenol) 650 mg Q4H PRN PO headache, fever, pain 1-4 09/06/17 13:00 09/06/17 19:41 Ondansetron HCl (Zofran Inj) 4 mg Q6H PRN IVP NAUSEA OR VOMITING 09/06/17 13:00 09/21/17 19:40 Dronabinol (Marinol) 2.5 mg BID@11,16 PO 09/07/17 11:00 10/03/17 16:40 Lactobacillus Acidophilus (Lactinex) 1 tab TID PO 09/11/17 09:00 10/04/17 08:29 Potassium Chloride/Sodium Chloride 1,000 ml @ 42 mls/hr [id number] IV 09/14/17 15:15 10/04/17 00:59 Sodium Chloride (NS Flush) See Protocol DAILY IV FLUSH 09/19/17 09:00 10/02/17 09:08 Heparin Sodium (Porcine) (Heparin Central Flush) See Protocol DAILY IV FLUSH 09/19/17 09:00 10/02/17 09:07 Magnesium Oxide (Mag-Ox) 400 mg DAILY PO 09/19/17 09:00 10/04/17 08:29 Diltiazem HCl (Cardizem) 30 mg Q6HR PO 09/22/17 00:00 10/04/17 05:29 Potassium Chloride (KCl) 10 meq Q12HR PO 09/22/17 21:00 10/04/17 08:30 Vancomycin HCl 1250 mg/Sodium Chloride 262.5 ml @ 250 mls/hr Q24H IV 09/25/17 21:00 10/03/17 22:01 Nifedipine (Procardia Xl) 60 mg DAILY PO 09/28/17 09:30 10/04/17 08:29 Filgrastim 300 mcg/Dextrose 25 ml @ 100 mls/hr DAILY@14 IV 09/30/17 14:00 10/07/17 13:59 10/03/17 13:21 Warfarin Sodium (Coumadin) 3 mg DAILY@1600 PO 10/01/17 16:00 Future Hold 10/03/17 16:40 Objective Remarks GENERAL: Middle aged male supine in bed in nad. SKIN: Warm and dry. HEAD: Normocephalic. EYES: No injection or drainage. NECK: Supple, trachea midline. CARDIOVASCULAR: Regular rate and rhythm RESPIRATORY: anterior canas clear. GASTROINTESTINAL: Abdomen soft, non-tender, nondistended. EXTREMITIES: No cyanosis NEUROLOGICAL: awake and alert, normal speech. Assessment/Plan Assessment 47y/o male with high-grade diffuse large B-cell lymphoma admitted for pneumonia and nausea/vomiting as well as anemia. History of pulmonary embolism currently on anticoagulation. Hypertension. Protein-calorie malnutrition. Plan 1. PE: will place coumadin on hold until platelets have reached their chioma and then started to rise again. 2. pancytopenia: monitor and continue Neupogen. 3. continue IV vanco per ID. Attending Statement The exam, history, and the medical decision-making described in the above note were completed with the assistance of the mid-level provider. I reviewed and agree with the findings presented. I attest that I had a [id number] encounter with the patient on the same day, and personally performed and documented my assessment and findings in the medical record. no change in exam. platelets are falling and will stop coumadin and repeat cbc plat and dif in am. again discussed with him the possibility of looking for additional tx at a tertiary care center which was originally suggested by Dr. Connelly and patient declined. Brenda Platt Oct 04, 2017 09:54 George Yen MD Oct 04, 2017 10:49
--- NOTE | 2017-10-04 11:08 | HHI.PR ---
Subjective Remarks Follow-up sepsis/non-Hodgkin lymphoma 10/03/17-patient seen and examined, denies any acute event overnight. Currently afebrile. 10/04/17-patient seen and examined, no change in exam. Currently stable. Plts decreasing. Objective Vitals Vital Signs Date Time Temp Pulse Resp B/P (MAP) Pulse Ox O2 Delivery O2 Flow Rate FiO2 10/04/17 08:24 Room Air 10/04/17 08:24 98.7 72 16 123/80 (94) 99 10/04/17 04:00 98.6 74 16 127/81 (96) 99 10/04/17 00:00 98.5 80 12 122/76 (91) 98 10/03/17 23:00 82 10/03/17 20:00 98.4 82 12 129/80 (96) 99 10/03/17 20:00 99 Room Air 10/03/17 16:47 98.9 82 16 120/75 (90) 99 10/03/17 13:25 98.7 68 16 142/80 (100) 98 I/O 10/03/17 10/03/17 10/03/17 10/04/17 10/04/17 10/04/17 07:00 15:00 23:00 07:00 15:00 23:00 Intake Total 2030 ml 25 ml 1182 ml 720 ml Output Total 2575 ml 2350 ml 2150 ml Balance -545 ml 25 ml -1168 ml -1430 ml Intake Oral 580 ml 640 ml 720 ml IV Total 25 ml 542 ml Packed Cells 1450 ml Output Urine Total 2575 ml 2350 ml 2150 ml Result Diagram: 10/04/1751910/04/1720 Objective Remarks GENERAL: NAD SKIN: Warm and dry. HEAD: Normocephalic. EYES: No scleral icterus. No injection or drainage. NECK: Supple, trachea midline. No JVD or lymphadenopathy. CARDIOVASCULAR: Regular rate and rhythm without murmurs, gallops, or rubs. RESPIRATORY: Breath sounds equal bilaterally. No accessory muscle use. GASTROINTESTINAL: Abdomen soft, non-tender, nondistended. MUSCULOSKELETAL: No cyanosis, or edema. BACK: Nontender without obvious deformity. No CVA tenderness. Procedures None. 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 difficile colitis ICD Code: A04.7 - Enterocolitis due to Clostridium difficile Status: Resolved (7) Sepsis ICD Code: A41.9 - Sepsis, unspecified organism (8) Debility ICD Code: R53.81 - Other malaise Status: Acute (9) Atrial fibrillation with RVR ICD Code: I48.91 - Unspecified atrial fibrillation (10) Sepsis due to methicillin resistant Staphylococcus aureus (MRSA) ICD Code: A41.02 - Sepsis due to Methicillin resistant Staphylococcus aureus Assessment and Plan 47 year-old man with 1. Sepsis, MRSA tricuspid valve endocarditis, MRSA bacteremia, bilateral pneumonia - Patient underwent Port removal 09/10. - 2-D echocardiogram with tricuspid valve vegetation - ID following. Continue with Vancomycin for 6 weeks through October 26 2. C difficile diarrhea/colitis. - s/p Vancomycin PO 14 days total - Diarrhea resolved. 3. 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 Patient will get Neulasta as an outpatient. 4. Atrial fibrillation with rapid ventricular rate - Currently rate controlled Continue by mouth Cardizem. 5. Microcytic hypochromic anemia: - Improved Status post blood transfusion 6. Severe protein calorie malnutrition due to the colitis - Continue Marinol. - Dietitian following. 7. Hypokalemia - Replace electrolyte and monitor 8. Essential Hypertension: - Procardia xl 60 mg po daily - BP stable. Continue current antihypertensives. 9. H/O PE, and nonocclusive thrombus in jugular vein - Had massive PE requiring tPA in April 2017. Warfarin on hold secondary to thrombocytopenia 10. Debility. - Continue PT which patient is not very compliant with. Patient encouraged to work with PT. 11. Thrombocytopenia Coumadin on hold DVT Prophylaxis: SCDs. Problem Qualifiers (1) Non-Hodgkin lymphoma: Qualified Codes: C83.38 - Diffuse large b-cell lymphoma, lymph nodes of multiple sites (2) Anemia: Qualified Codes: D64.9 - Anemia, unspecified (3) Sepsis: Qualified Codes: A41.02 - Sepsis due to methicillin resistant Staphylococcus aureus Tray Turner MD Oct 04, 2017 11:08
[2017-10-04] MEDS: DRONABINOL 2.5 MG CAP PO SCH ×2 (12:03→16:32)
[2017-10-04] MEDS: FILGRASTIM INJ 300 MCG in DEXTROSE 5% IN WATER INJ 24 ML IV SCH ×2 (15:11)
[2017-10-04] MEDS: VANCOMYCIN INJ 1,250 MG in SODIUM CHLOR 0.9% 250 ML INJ 250 ML IV SCH (21:25)
[2017-10-05] VITALS (10 sets, daily range): BP systolic 105–128; BP diastolic 57–76; PULSE 61–85; RESP 12–17; TEMP 97.8–98.7; O2SAT 98–100
[2017-10-05 05:13] LABS: HEMATOCRIT 28.3 % (39.0-51.0); HEMOGLOBIN 9.5 GM/DL (13.0-17.0); MEAN CELL VOLUME 80.6 FL (80.0-100.0); MEAN CORPUSCULAR HEMOGLOBIN 27.1 PG (27.0-34.0); MEAN CORPUSCULAR HGB CONC 33.6 % (32.0-36.0); MEAN PLATELET VOLUME 9.5 FL (7.0-11.0); RED CELL DISTRIBUTION WIDTH 17.4 % (11.6-17.2); WHITE BLOOD COUNT 0.5 TH/MM3 (4.0-11.0)
[2017-10-05 05:20] LABS: INTERNATIONAL NORMALIZED RATIO 2.1 RATIO; PROTHROMBIN TIME - PATIENT 21.5 SEC (9.8-11.6)
[2017-10-05 05:41] LABS: BICARBONATE 30.7 MEQ/L (21.0-32.0); CALCIUM 7.5 MG/DL (8.5-10.1); CREATININE 0.52 MG/DL (0.60-1.30)
[2017-10-05] MEDS: DILTIAZEM HCL 30 MG TAB PO SCH ×3 (05:47→18:16)
[2017-10-05 05:54] LABS: PLATELET COUNT 17 TH/MM3 (150-450)
[2017-10-05] MEDS: SODIUM CHLORIDE 0.9% FLUSH 10 ML FLUSH IV FLUSH SCH ×3 (08:29→21:00)
[2017-10-05] MEDS: LACTOBACILLUS ACIDOPHILUS TAB PO SCH ×3 (08:29→18:16)
[2017-10-05] MEDS: POTASSIUM CHLORIDE 10 MEQ CONTROLLED RELEASE TAB PO SCH ×2 (08:29→22:01)
[2017-10-05] MEDS: MAGNESIUM OXIDE 400 MG TAB PO SCH (08:29)
[2017-10-05] MEDS: NIFEdipine 60 MG SUSTAINED RELEASE TAB PO SCH (08:29)
[2017-10-05 08:33] LABS: BANDS 12 % (0-6); BASOPHILS 2 % (0-2); LYMPHOCYTES 46 % (9-44); MONOCYTES 6 % (0-8); NEUTROPHIL # MANUAL DIFF 0.2 TH/MM3 (1.8-7.7); POLYS (SEG NEUTROPHILS) 32 % (16-70)
--- NOTE | 2017-10-05 10:25 | HHI.PR ---
Subjective Remarks Follow-up sepsis/non-Hodgkin lymphoma 10/03/17-patient seen and examined, denies any acute event overnight. Currently afebrile. 10/04/17-patient seen and examined, no change in exam. Currently stable. Plts decreasing. 10/05/17-patient seen and examined, aching by mouth without any complication nausea and vomiting. Afebrile. Platelet count down to 17 Objective Vitals Vital Signs Date Time Temp Pulse Resp B/P (MAP) Pulse Ox O2 Delivery O2 Flow Rate FiO2 10/05/17 03:41 98.7 61 16 119/60 (79) 99 10/05/17 01:00 81 10/05/17 00:00 98.4 73 12 128/76 (93) 98 10/04/17 23:00 82 10/04/17 20:00 99.4 80 12 126/80 (95) 99 10/04/17 19:00 99 Room Air 10/04/17 15:20 98.6 76 16 131/79 (96) 94 10/04/17 13:58 21 10/04/17 12:04 98.6 63 16 136/81 (99) I/O 10/04/17 10/04/17 10/04/17 10/05/17 10/05/17 10/05/17 07:00 15:00 23:00 07:00 15:00 23:00 Intake Total 720 ml 1151 ml 25 ml 240 ml Output Total 2150 ml 2400 ml 1525 ml Balance -1430 ml 1151 ml -2375 ml -1285 ml Intake Oral 720 ml 460 ml 240 ml IV Total 691 ml 25 ml Output Urine Total 2150 ml 2400 ml 1525 ml # Bowel Movements 1 1 Result Diagram: 10/05/1744410/05/175 Objective Remarks GENERAL: NAD SKIN: Warm and dry. HEAD: Normocephalic. EYES: No scleral icterus. No injection or drainage. NECK: Supple, trachea midline. No JVD or lymphadenopathy. CARDIOVASCULAR: Regular rate and rhythm without murmurs, gallops, or rubs. RESPIRATORY: Breath sounds equal bilaterally. No accessory muscle use. GASTROINTESTINAL: Abdomen soft, non-tender, nondistended. MUSCULOSKELETAL: No cyanosis, or edema. BACK: Nontender without obvious deformity. No CVA tenderness. Procedures None. 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 difficile colitis ICD Code: A04.7 - Enterocolitis due to Clostridium difficile Status: Resolved (7) Sepsis ICD Code: A41.9 - Sepsis, unspecified organism (8) Debility ICD Code: R53.81 - Other malaise Status: Acute (9) Atrial fibrillation with RVR ICD Code: I48.91 - Unspecified atrial fibrillation (10) Sepsis due to methicillin resistant Staphylococcus aureus (MRSA) ICD Code: A41.02 - Sepsis due to Methicillin resistant Staphylococcus aureus Assessment and Plan 47 year-old man with 1. Sepsis, MRSA tricuspid valve endocarditis, MRSA bacteremia, bilateral pneumonia - Patient underwent Port removal 09/10. - 2-D echocardiogram with tricuspid valve vegetation - ID following. Continue with Vancomycin for 6 weeks through October 26 2. C difficile diarrhea/colitis. - s/p Vancomycin PO 14 days total - Diarrhea resolved. 3. 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 Patient will get Neulasta as an outpatient. 4. Atrial fibrillation with rapid ventricular rate - Currently rate controlled Continue by mouth Cardizem. 5. Microcytic hypochromic anemia: - Improved Status post blood transfusion 6. Severe protein calorie malnutrition due to the colitis - Continue Marinol. - Dietitian following. 7. Hypokalemia - Replace electrolyte and monitor 8. Essential Hypertension: - Procardia xl 60 mg po daily - BP stable. Continue current antihypertensives. 9. H/O PE, and nonocclusive thrombus in jugular vein - Had massive PE requiring tPA in April 2017. Warfarin on hold secondary to thrombocytopenia 10. Debility. - Continue PT 11. Thrombocytopenia Plts down to 17 Coumadin on hold DVT Prophylaxis: SCDs. Problem Qualifiers (1) Non-Hodgkin lymphoma: Qualified Codes: C83.38 - Diffuse large b-cell lymphoma, lymph nodes of multiple sites (2) Anemia: Qualified Codes: D64.9 - Anemia, unspecified (3) Sepsis: Qualified Codes: A41.02 - Sepsis due to methicillin resistant Staphylococcus aureus Tray Turner MD Oct 05, 2017 10:25
--- NOTE | 2017-10-05 11:38 | PD.ONC.PN ---
Subjective Subjective Remarks Patient seen and examined, vital signs, labs medications and chemotherapy orders as well as administration dates were reviewed. Chemotherapy was completed mid week last week. Feels generally tired, denies fevers or chills, denies acute pain. Blood counts are reviewed and he is increasingly cytopenic with platelet counts approaching chioma with a platelet count of 17,000 today. No evidence of active bleeding. Objective Data Date Time Temp Pulse Resp B/P (MAP) Pulse Ox O2 Delivery O2 Flow Rate FiO2 10/05/17 11:10 98 10/05/17 08:27 Room Air 10/05/17 07:30 98.6 65 17 105/57 (73) 100 10/05/17 03:41 98.7 61 16 119/60 (79) 99 10/05/17 01:00 81 10/05/17 00:00 98.4 73 12 128/76 (93) 98 10/04/17 23:00 82 10/04/17 20:00 99.4 80 12 126/80 (95) 99 10/04/17 19:00 99 Room Air 10/04/17 15:20 98.6 76 16 131/79 (96) 94 10/04/17 13:58 21 10/04/17 12:04 98.6 63 16 136/81 (99) 10/05/17 10/05/17 10/05/17 07:00 15:00 23:00 Intake Total 240 ml Output Total 1525 ml Balance -1285 ml Result Diagram: 10/05/17 0445 10/05/17 0445 Laboratory Results Laboratory Tests Test 10/05/17 04:45 White Blood Count 0.5 TH/MM3 Red Blood Count 3.50 MIL/MM3 Hemoglobin 9.5 GM/DL Hematocrit 28.3 % Mean Corpuscular Volume 80.6 FL Mean Corpuscular Hemoglobin 27.1 PG Mean Corpuscular Hemoglobin Concent 33.6 % Red Cell Distribution Width 17.4 % Platelet Count 17 TH/MM3 Mean Platelet Volume 9.5 FL CBC Comment AUTO DIFF Differential Total Cells Counted 50 Neutrophils % (Manual) 32 % Band Neutrophils % 12 % Lymphocytes % 46 % Monocytes % 6 % Eosinophils % 2 % Basophils % 2 % Neutrophils # (Manual) 0.2 TH/MM3 Differential Comment FINAL DIFF MANUAL Platelet Estimate RARE Platelet Morphology Comment NORMAL Prothrombin Time 21.5 SEC Prothromb Time International Ratio 2.1 RATIO Blood Urea Nitrogen 4 MG/DL Creatinine 0.52 MG/DL Random Glucose 84 MG/DL Calcium Level 7.5 MG/DL Sodium Level 139 MEQ/L Potassium Level 3.5 MEQ/L Chloride Level 103 MEQ/L Carbon Dioxide Level 30.7 MEQ/L Anion Gap 5 MEQ/L Estimat Glomerular Filtration Rate 205 ML/MIN Administered Medications Medications (Trade) Dose Ordered Sig/Shyla Route PRN Reason Start Time Stop Time Status Last Admin Dose Admin Sodium Chloride (NS Flush) 2 ml UNSCH PRN IV FLUSH FLUSH AFTER USING IV ACCESS 09/06/17 13:00 09/08/17 22:44 Sodium Chloride (NS Flush) 2 ml BID IV FLUSH 09/06/17 21:00 10/05/17 08:29 Acetaminophen (Tylenol) 650 mg Q4H PRN PO headache, fever, pain 1-4 09/06/17 13:00 09/06/17 19:41 Ondansetron HCl (Zofran Inj) 4 mg Q6H PRN IVP NAUSEA OR VOMITING 09/06/17 13:00 09/21/17 19:40 Dronabinol (Marinol) 2.5 mg BID@11,16 PO 09/07/17 11:00 10/04/17 16:32 Lactobacillus Acidophilus (Lactinex) 1 tab TID PO 09/11/17 09:00 10/05/17 08:29 Sodium Chloride (NS Flush) See Protocol DAILY IV FLUSH 09/19/17 09:00 10/02/17 09:08 Heparin Sodium (Porcine) (Heparin Central Flush) See Protocol DAILY IV FLUSH 09/19/17 09:00 10/02/17 09:07 Magnesium Oxide (Mag-Ox) 400 mg DAILY PO 09/19/17 09:00 10/05/17 08:29 Diltiazem HCl (Cardizem) 30 mg Q6HR PO 09/22/17 00:00 10/05/17 05:47 Potassium Chloride (KCl) 10 meq Q12HR PO 09/22/17 21:00 10/05/17 08:29 Vancomycin HCl 1250 mg/Sodium Chloride 262.5 ml @ 250 mls/hr Q24H IV 09/25/17 21:00 10/04/17 21:25 Nifedipine (Procardia Xl) 60 mg DAILY PO 09/28/17 09:30 10/05/17 08:29 Filgrastim 300 mcg/Dextrose 25 ml @ 100 mls/hr DAILY@14 IV 09/30/17 14:00 10/07/17 13:59 10/04/17 15:11 Warfarin Sodium (Coumadin) 3 mg DAILY@1600 PO 10/01/17 16:00 Future Hold 10/03/17 16:40 Objective Remarks GENERAL: Middle aged male supine in bed in nad. SKIN: Warm and dry. HEAD: Normocephalic. EYES: No injection or drainage. NECK: Supple, trachea midline. Chest: Status post removal of right-sided infusion port him a clean-appearing bandage in place. CARDIOVASCULAR: Regular rate and rhythm RESPIRATORY: anterior canas clear. GASTROINTESTINAL: Abdomen soft, non-tender, nondistended. EXTREMITIES: No cyanosis NEUROLOGICAL: awake and alert, normal speech. Musculoskeletal: Generalized muscle atrophy and weakness. Assessment/Plan Problem List: (1) Sepsis ICD Codes: A41.9 - Sepsis, unspecified organism Plan: --ID following --Most recent blood cultures show no growth --patient on IV Vanco --echo on 09/12 showed vegetation (2) Pulmonary emboli ICD Codes: I26.99 - Other pulmonary embolism without acute cor pulmonale Status: Chronic Plan: --on Coumadin Assessment 47y/o male with high-grade diffuse large B-cell lymphoma admitted for pneumonia and nausea/vomiting as well as anemia. History of pulmonary embolism currently on anticoagulation. Hypertension. Protein-calorie malnutrition. Plan High-grade large cell lymphoma: Status post systemic chemotherapy with the EPOCH regimen. He is cytopenic and is being monitored. Transfusions as needed and he is on GCSF support. Internal jugular vein DVT thrombosis: INR is 2.1 today, warfarin however is on hold. Platelet count is 17,000 and will need to be monitored very closely. The patient will also need to be monitored closely for any evidence of bleeding. MRSA bacteremia secondary to an infected infusion port: Patient remains on vancomycin IV. He is afebrile and has not had positive blood cultures since . Continue ongoing care. Problem Qualifiers (1) Sepsis: Qualified Codes: A41.02 - Sepsis due to methicillin resistant Staphylococcus aureus Johnny Stinson MD Oct 05, 2017 11:38
[2017-10-05] MEDS: DRONABINOL 2.5 MG CAP PO SCH ×2 (13:34→17:34)
[2017-10-05] MEDS: FILGRASTIM INJ 300 MCG in DEXTROSE 5% IN WATER INJ 24 ML IV SCH ×2 (17:34)
[2017-10-05] MEDS: VANCOMYCIN INJ 1,250 MG in SODIUM CHLOR 0.9% 250 ML INJ 250 ML IV SCH (22:01)
[2017-10-06] VITALS (9 sets, daily range): BP systolic 107–131; BP diastolic 69–90; PULSE 75–86; RESP 16–18; TEMP 97.8–98.7; O2SAT 98–100
[2017-10-06] MEDS: DILTIAZEM HCL 30 MG TAB PO SCH ×4 (01:10→18:23)
[2017-10-06 06:13] LABS: INTERNATIONAL NORMALIZED RATIO 1.9 RATIO; PROTHROMBIN TIME - PATIENT 19.6 SEC (9.8-11.6)
[2017-10-06 06:35] LABS: BICARBONATE 30.4 MEQ/L (21.0-32.0); CALCIUM 7.6 MG/DL (8.5-10.1); CREATININE 0.6 MG/DL (0.60-1.30)
[2017-10-06] MEDS: SODIUM CHLORIDE 0.9% FLUSH 10 ML FLUSH IV FLUSH SCH ×3 (09:00→21:27)
--- NOTE | 2017-10-06 09:46 | HHI.PR ---
Subjective Remarks Follow-up sepsis/non-Hodgkin lymphoma 10/03/17-patient seen and examined, denies any acute event overnight. Currently afebrile. 10/04/17-patient seen and examined, no change in exam. Currently stable. Plts decreasing. 10/05/17-patient seen and examined, aching by mouth without any complication nausea and vomiting. Afebrile. Platelet count down to 17 10/06/17-patient seen and examined, no acute event overnight, stable. CBC pending this a.m. Objective Vitals Vital Signs Date Time Temp Pulse Resp B/P (MAP) Pulse Ox O2 Delivery O2 Flow Rate FiO2 10/06/17 09:00 98.0 76 18 119/75 (90) 100 10/06/17 05:21 98.5 78 16 123/77 (92) 100 10/06/17 01:09 82 131/90 (104) 100 10/05/17 22:00 Room Air 10/05/17 21:58 98.7 69 16 113/70 (84) 100 10/05/17 20:04 85 10/05/17 17:03 99 10/05/17 15:30 98.6 79 17 105/70 (82) 99 10/05/17 12:20 97.8 73 16 110/64 (79) 99 10/05/17 11:10 98 I/O 10/05/17 10/05/17 10/05/17 10/06/17 10/06/17 10/06/17 07:00 15:00 23:00 07:00 15:00 23:00 Intake Total 240 ml 565 ml 262.5 ml Output Total 1525 ml 900 ml 700 ml Balance -1285 ml -335 ml -437.5 ml Intake Oral 240 ml 540 ml IV Total 25 ml 262.5 ml Output Urine Total 1525 ml 900 ml 700 ml # Bowel Movements 1 1 Result Diagram: 10/05/17 0445 10/06/17 0530 Objective Remarks GENERAL: NAD SKIN: Warm and dry. HEAD: Normocephalic. EYES: No scleral icterus. No injection or drainage. NECK: Supple, trachea midline. No JVD or lymphadenopathy. CARDIOVASCULAR: Regular rate and rhythm without murmurs, gallops, or rubs. RESPIRATORY: Breath sounds equal bilaterally. No accessory muscle use. GASTROINTESTINAL: Abdomen soft, non-tender, nondistended. MUSCULOSKELETAL: No cyanosis, or edema. BACK: Nontender without obvious deformity. No CVA tenderness. Procedures None. 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 difficile colitis ICD Code: A04.7 - Enterocolitis due to Clostridium difficile Status: Resolved (7) Sepsis ICD Code: A41.9 - Sepsis, unspecified organism (8) Debility ICD Code: R53.81 - Other malaise Status: Acute (9) Atrial fibrillation with RVR ICD Code: I48.91 - Unspecified atrial fibrillation (10) Sepsis due to methicillin resistant Staphylococcus aureus (MRSA) ICD Code: A41.02 - Sepsis due to Methicillin resistant Staphylococcus aureus Assessment and Plan 47 year-old man with 1. Sepsis, MRSA tricuspid valve endocarditis, MRSA bacteremia, bilateral pneumonia - Patient underwent Port removal 09/10. - 2-D echocardiogram with tricuspid valve vegetation - ID following. Continue with Vancomycin for 6 weeks through October 26 2. C difficile diarrhea/colitis. - s/p Vancomycin PO 14 days total - Diarrhea resolved. 3. 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 Patient will get Neulasta as an outpatient. 4. Atrial fibrillation with rapid ventricular rate - Currently rate controlled Continue by mouth Cardizem. 5. Microcytic hypochromic anemia: - Improved Status post blood transfusion 6. Severe protein calorie malnutrition due to the colitis - Continue Marinol. - Dietitian following. 7. Hypokalemia - Replace electrolyte and monitor 8. Essential Hypertension: - Procardia xl 60 mg po daily 9. H/O PE, and nonocclusive thrombus in jugular vein - Had massive PE requiring tPA in April 2017. Warfarin on hold secondary to thrombocytopenia 10. Debility. - Continue PT 11. Thrombocytopenia Plts down to 17 10/05/17 CBC pending this a.m. Coumadin on hold DVT Prophylaxis: SCDs. Problem Qualifiers (1) Non-Hodgkin lymphoma: Qualified Codes: C83.38 - Diffuse large b-cell lymphoma, lymph nodes of multiple sites (2) Anemia: Qualified Codes: D64.9 - Anemia, unspecified (3) Sepsis: Qualified Codes: A41.02 - Sepsis due to methicillin resistant Staphylococcus aureus Tray Turner MD Oct 06, 2017 09:46
[2017-10-06] MEDS: LACTOBACILLUS ACIDOPHILUS TAB PO SCH ×3 (10:48→18:23)
[2017-10-06] MEDS: NIFEdipine 60 MG SUSTAINED RELEASE TAB PO SCH (10:49)
[2017-10-06] MEDS: MAGNESIUM OXIDE 400 MG TAB PO SCH (10:49)
[2017-10-06] MEDS: POTASSIUM CHLORIDE 10 MEQ CONTROLLED RELEASE TAB PO SCH ×2 (10:51→21:23)
--- NOTE | 2017-10-06 11:41 | PD.ONC.PN ---
Subjective Subjective Remarks Afebrile overnight. Patient more eager to work with physical therapy so he can get home. No complaints. Objective Data Date Time Temp Pulse Resp B/P (MAP) Pulse Ox O2 Delivery O2 Flow Rate FiO2 10/06/17 09:00 98.0 76 18 119/75 (90) 100 10/06/17 05:21 98.5 78 16 123/77 (92) 100 10/06/17 01:09 82 131/90 (104) 100 10/05/17 22:00 Room Air 10/05/17 21:58 98.7 69 16 113/70 (84) 100 10/05/17 20:04 85 10/05/17 17:03 99 10/05/17 15:30 98.6 79 17 105/70 (82) 99 10/05/17 12:20 97.8 73 16 110/64 (79) 99 10/06/17 10/06/17 10/06/17 07:00 15:00 23:00 Intake Total 262.5 ml Output Total 700 ml Balance -437.5 ml Result Diagram: 10/05/17 0445 10/06/17 0530 Laboratory Results Laboratory Tests Test 10/06/17 05:30 Prothrombin Time 19.6 SEC Prothromb Time International Ratio 1.9 RATIO Blood Urea Nitrogen 4 MG/DL Creatinine 0.60 MG/DL Random Glucose 87 MG/DL Calcium Level 7.6 MG/DL Sodium Level 138 MEQ/L Potassium Level 3.6 MEQ/L Chloride Level 102 MEQ/L Carbon Dioxide Level 30.4 MEQ/L Anion Gap 6 MEQ/L Estimat Glomerular Filtration Rate 174 ML/MIN Administered Medications Medications (Trade) Dose Ordered Sig/Shyla Route PRN Reason Start Time Stop Time Status Last Admin Dose Admin Sodium Chloride (NS Flush) 2 ml UNSCH PRN IV FLUSH FLUSH AFTER USING IV ACCESS 09/06/17 13:00 09/08/17 22:44 Sodium Chloride (NS Flush) 2 ml BID IV FLUSH 09/06/17 21:00 10/06/17 10:50 Acetaminophen (Tylenol) 650 mg Q4H PRN PO headache, fever, pain 1-4 09/06/17 13:00 09/06/17 19:41 Ondansetron HCl (Zofran Inj) 4 mg Q6H PRN IVP NAUSEA OR VOMITING 09/06/17 13:00 09/21/17 19:40 Dronabinol (Marinol) 2.5 mg BID@11,16 PO 09/07/17 11:00 10/05/17 17:34 Lactobacillus Acidophilus (Lactinex) 1 tab TID PO 09/11/17 09:00 10/06/17 10:48 Sodium Chloride (NS Flush) See Protocol DAILY IV FLUSH 09/19/17 09:00 10/02/17 09:08 Heparin Sodium (Porcine) (Heparin Central Flush) See Protocol DAILY IV FLUSH 09/19/17 09:00 10/06/17 10:48 Magnesium Oxide (Mag-Ox) 400 mg DAILY PO 09/19/17 09:00 10/06/17 10:49 Diltiazem HCl (Cardizem) 30 mg Q6HR PO 09/22/17 00:00 10/06/17 05:23 Potassium Chloride (KCl) 10 meq Q12HR PO 09/22/17 21:00 10/06/17 10:51 Vancomycin HCl 1250 mg/Sodium Chloride 262.5 ml @ 250 mls/hr Q24H IV 09/25/17 21:00 10/05/17 22:01 Nifedipine (Procardia Xl) 60 mg DAILY PO 09/28/17 09:30 10/06/17 10:49 Filgrastim 300 mcg/Dextrose 25 ml @ 100 mls/hr DAILY@14 IV 09/30/17 14:00 10/07/17 13:59 10/05/17 17:34 Warfarin Sodium (Coumadin) 3 mg DAILY@1600 PO 10/01/17 16:00 Future Hold 10/03/17 16:40 Objective Remarks GENERAL: Middle aged male lying in bed in [facility]. SKIN: Warm and dry. HEAD: Normocephalic. EYES: No injection or drainage. NECK: Supple, trachea midline. CARDIOVASCULAR: Regular rate and rhythm RESPIRATORY: anterior canas clear. GASTROINTESTINAL: Abdomen soft, non-tender, nondistended. EXTREMITIES: No cyanosis NEUROLOGICAL: awake and alert, normal speech. moving all extremities. Musculoskeletal: deconditioned Assessment/Plan Problem List: (1) Sepsis ICD Codes: A41.9 - Sepsis, unspecified organism Plan: --ID following --Most recent blood cultures show no growth --on IV Vanco until 10/26 --echo on 09/12 showed vegetation (2) Pulmonary emboli ICD Codes: I26.99 - Other pulmonary embolism without acute cor pulmonale Status: Chronic Plan: --on Coumadin (on hold until platelet count rebounds) Assessment 47y/o male with high-grade diffuse large B-cell lymphoma admitted for pneumonia and nausea/vomiting as well as anemia. History of pulmonary embolism currently on anticoagulation. Hypertension. Protein-calorie malnutrition. Plan 1. continue antibiotics 2. continue Neupogen 3. monitor CBC, INR, will resume coumadin when platelet count starts rising again. 4. initiate neutropenic precautions. Attending Statement The exam, history, and the medical decision-making described in the above note were completed with the assistance of the mid-level provider. I reviewed and agree with the findings presented. I attest that I had a [id number] encounter with the patient on the same day, and personally performed and documented my assessment and findings in the medical record. No complaints, states he is getting up. Leg swelling decreased. No change in adenopathy. Noted thrombocytopenia and neutropenia post EPOCH. Cont support w/ transfusion and GCSF. ABx continue. Problem Qualifiers (1) Sepsis: Qualified Codes: A41.02 - Sepsis due to methicillin resistant Staphylococcus aureus Brenda Platt Oct 06, 2017 11:41 Joanna Castellon MD Oct 06, 2017 18:28
[2017-10-06] MEDS: DRONABINOL 2.5 MG CAP PO SCH ×2 (13:00→18:23)
[2017-10-06] MEDS: FILGRASTIM INJ 300 MCG in DEXTROSE 5% IN WATER INJ 24 ML IV SCH ×2 (18:23)
[2017-10-06] MEDS ORDERED: PHARMACY ORDERED LAB ONE (20:45)
[2017-10-06 21:02] LABS: AUTOMATED NEUTROPHIL # 0.2 TH/MM3 (1.8-7.7); BASOPHIL % 0.5 % (0.0-2.0); EOSINOPHIL % 3.7 % (0.0-4.0); HEMATOCRIT 27.2 % (39.0-51.0); HEMOGLOBIN 9.1 GM/DL (13.0-17.0); LYMPH % 52.2 % (9.0-44.0); LYMPHOCYTE # 0.3 TH/MM3 (1.0-4.8); MEAN CELL VOLUME 79.9 FL (80.0-100.0); MEAN CORPUSCULAR HEMOGLOBIN 26.7 PG (27.0-34.0); MEAN CORPUSCULAR HGB CONC 33.5 % (32.0-36.0); MEAN PLATELET VOLUME 8.9 FL (7.0-11.0); MONO % 14.8 % (0.0-8.0); MONOCYTE # 0.1 TH/MM3 (0-0.9); NEUT % 28.8 % (16.0-70.0); PLATELET COUNT 28 TH/MM3 (150-450); RED BLOOD COUNT 3.41 MIL/MM3 (4.50-5.90); RED CELL DISTRIBUTION WIDTH 16.8 % (11.6-17.2); WHITE BLOOD COUNT 0.6 TH/MM3 (4.0-11.0)
[2017-10-06] MEDS: VANCOMYCIN INJ 1,250 MG in SODIUM CHLOR 0.9% 250 ML INJ 250 ML IV SCH (21:34)
[2017-10-06 22:19] LABS: BANDS 9 % (0-6); BASOPHILS 1 % (0-2); LYMPHOCYTES 56 % (9-44); MONOCYTES 15 % (0-8); NEUTROPHIL # MANUAL DIFF 0.2 TH/MM3 (1.8-7.7); POLYS (SEG NEUTROPHILS) 19 % (16-70)
[2017-10-07] VITALS (9 sets, daily range): BP systolic 106–129; BP diastolic 58–77; PULSE 72–88; RESP 16–18; TEMP 98.4–98.7; O2SAT 97–100
[2017-10-07] MEDS: DILTIAZEM HCL 30 MG TAB PO SCH ×4 (00:27→18:27)
[2017-10-07 05:29] LABS: HEMATOCRIT 26.4 % (39.0-51.0); HEMOGLOBIN 8.8 GM/DL (13.0-17.0); MEAN CELL VOLUME 80.2 FL (80.0-100.0); MEAN CORPUSCULAR HEMOGLOBIN 26.9 PG (27.0-34.0); MEAN CORPUSCULAR HGB CONC 33.5 % (32.0-36.0); MEAN PLATELET VOLUME 8.7 FL (7.0-11.0); PLATELET COUNT 31 TH/MM3 (150-450); RED BLOOD COUNT 3.29 MIL/MM3 (4.50-5.90); RED CELL DISTRIBUTION WIDTH 17.5 % (11.6-17.2)
[2017-10-07 05:38] LABS: INTERNATIONAL NORMALIZED RATIO 1.7 RATIO; PROTHROMBIN TIME - PATIENT 17.1 SEC (9.8-11.6)
[2017-10-07 05:58] LABS: BICARBONATE 30.3 MEQ/L (21.0-32.0); CALCIUM 7.8 MG/DL (8.5-10.1); CREATININE 0.65 MG/DL (0.60-1.30); MAGNESIUM 1.5 MG/DL (1.5-2.5)
[2017-10-07 08:22] LABS: BANDS 6 % (0-6); LYMPHOCYTES 44 % (9-44); METAMYELOCYTES 2 % (0-1); MONOCYTES 7 % (0-8); NEUTROPHIL # MANUAL DIFF 0.5 TH/MM3 (1.8-7.7); POLYS (SEG NEUTROPHILS) 39 % (16-70)
[2017-10-07 08:27] LABS: KERATOCYTES OCC (NORMAL); OVALOCYTES 1+ (NORMAL)
[2017-10-07] MEDS: POTASSIUM CHLORIDE 10 MEQ CONTROLLED RELEASE TAB PO SCH ×2 (10:55→21:00)
[2017-10-07] MEDS: LACTOBACILLUS ACIDOPHILUS TAB PO SCH ×3 (10:55→18:00)
[2017-10-07] MEDS: MAGNESIUM OXIDE 400 MG TAB PO SCH (10:56)
[2017-10-07] MEDS: NIFEdipine 60 MG SUSTAINED RELEASE TAB PO SCH (10:56)
[2017-10-07] MEDS: SODIUM CHLORIDE 0.9% FLUSH 10 ML FLUSH IV FLUSH SCH ×3 (10:57→21:00)
[2017-10-07] MEDS: DRONABINOL 2.5 MG CAP PO SCH ×2 (11:00→18:27)
--- NOTE | 2017-10-07 11:11 | PD.ONC.PN ---
Subjective Subjective Remarks Afebrile overnight. Patient resting in bed in nad. Hopeful to go home soon. Objective Data Date Time Temp Pulse Resp B/P (MAP) Pulse Ox O2 Delivery O2 Flow Rate FiO2 10/07/17 08:55 Room Air 10/07/17 08:03 98.4 72 18 106/58 (74) 99 10/07/17 04:08 98.6 74 16 129/77 (94) 100 10/07/17 04:04 74 10/07/17 00:19 98.7 84 18 116/67 (83) 99 10/07/17 00:11 79 10/06/17 21:30 Room Air 10/06/17 20:55 98.7 86 18 107/69 (82) 98 10/06/17 20:14 86 10/06/17 18:00 98.4 80 18 100 10/06/17 17:18 99 21 10/06/17 13:03 97.8 75 18 116/78 (91) 100 10/07/17 10/07/17 10/07/17 07:00 15:00 23:00 Intake Total 120 ml Output Total 800 ml Balance -680 ml Result Diagram: 10/07/17 0410 10/07/17 0410 Laboratory Results Laboratory Tests Test 10/06/17 19:15 10/06/17 21:15 10/07/17 04:10 White Blood Count 0.6 TH/MM3 1.0 TH/MM3 Red Blood Count 3.41 MIL/MM3 3.29 MIL/MM3 Hemoglobin 9.1 GM/DL 8.8 GM/DL Hematocrit 27.2 % 26.4 % Mean Corpuscular Volume 79.9 FL 80.2 FL Mean Corpuscular Hemoglobin 26.7 PG 26.9 PG Mean Corpuscular Hemoglobin Concent 33.5 % 33.5 % Red Cell Distribution Width 16.8 % 17.5 % Platelet Count 28 TH/MM3 31 TH/MM3 Mean Platelet Volume 8.9 FL 8.7 FL Neutrophils (%) (Auto) 28.8 % Lymphocytes (%) (Auto) 52.2 % Monocytes (%) (Auto) 14.8 % Eosinophils (%) (Auto) 3.7 % Basophils (%) (Auto) 0.5 % Neutrophils # (Auto) 0.2 TH/MM3 Lymphocytes # (Auto) 0.3 TH/MM3 Monocytes # (Auto) 0.1 TH/MM3 Eosinophils # (Auto) 0.0 TH/MM3 Basophils # (Auto) 0.0 TH/MM3 CBC Comment AUTO DIFF AUTO DIFF Differential Total Cells Counted 100 100 Neutrophils % (Manual) 19 % 39 % Band Neutrophils % 9 % 6 % Lymphocytes % 56 % 44 % Monocytes % 15 % 7 % Basophils % 1 % Neutrophils # (Manual) 0.2 TH/MM3 0.5 TH/MM3 Differential Comment FINAL DIFF MANUAL FINAL DIFF MANUAL Platelet Estimate LOW LOW Platelet Morphology Comment NORMAL NORMAL Vancomycin Level Trough 14.7 MCG/ML Eosinophils % 2 % Metamyelocytes 2 % Ovalocytes 1+ Keratocytes OCC Prothrombin Time 17.1 SEC Prothromb Time International Ratio 1.7 RATIO Blood Urea Nitrogen 3 MG/DL Creatinine 0.65 MG/DL Random Glucose 78 MG/DL Calcium Level 7.8 MG/DL Magnesium Level 1.5 MG/DL Sodium Level 142 MEQ/L Potassium Level 3.4 MEQ/L Chloride Level 106 MEQ/L Carbon Dioxide Level 30.3 MEQ/L Anion Gap 6 MEQ/L Estimat Glomerular Filtration Rate 158 ML/MIN Administered Medications Medications (Trade) Dose Ordered Sig/Shyla Route PRN Reason Start Time Stop Time Status Last Admin Dose Admin Sodium Chloride (NS Flush) 2 ml UNSCH PRN IV FLUSH FLUSH AFTER USING IV ACCESS 09/06/17 13:00 09/08/17 22:44 Sodium Chloride (NS Flush) 2 ml BID IV FLUSH 09/06/17 21:00 10/06/17 21:27 Acetaminophen (Tylenol) 650 mg Q4H PRN PO headache, fever, pain 1-4 09/06/17 13:00 09/06/17 19:41 Ondansetron HCl (Zofran Inj) 4 mg Q6H PRN IVP NAUSEA OR VOMITING 09/06/17 13:00 09/21/17 19:40 Dronabinol (Marinol) 2.5 mg BID@11,16 PO 09/07/17 11:00 10/06/17 18:23 Lactobacillus Acidophilus (Lactinex) 1 tab TID PO 09/11/17 09:00 10/07/17 10:55 Sodium Chloride (NS Flush) See Protocol DAILY IV FLUSH 09/19/17 09:00 10/07/17 10:57 Heparin Sodium (Porcine) (Heparin Central Flush) See Protocol DAILY IV FLUSH 09/19/17 09:00 10/07/17 10:57 Heparin Sodium (Porcine) (Heparin Central Flush) See Protocol UNSCH PRN IV FLUSH SEE PROTOCOL TABLE 09/18/17 15:15 10/07/17 06:14 Sodium Chloride (NS Flush) UNSCH PRN IV FLUSH SEE PROTOCOL TABLE 09/18/17 15:15 10/07/17 00:23 Magnesium Oxide (Mag-Ox) 400 mg DAILY PO 09/19/17 09:00 10/07/17 10:56 Diltiazem HCl (Cardizem) 30 mg Q6HR PO 09/22/17 00:00 10/07/17 06:06 Potassium Chloride (KCl) 10 meq Q12HR PO 09/22/17 21:00 10/07/17 10:55 Vancomycin HCl 1250 mg/Sodium Chloride 262.5 ml @ 250 mls/hr Q24H IV 09/25/17 21:00 10/06/17 21:34 Nifedipine (Procardia Xl) 60 mg DAILY PO 09/28/17 09:30 10/07/17 10:56 Filgrastim 300 mcg/Dextrose 25 ml @ 100 mls/hr DAILY@14 IV 09/30/17 14:00 10/06/17 18:23 Warfarin Sodium (Coumadin) 3 mg DAILY@1600 PO 10/01/17 16:00 Future Hold 10/03/17 16:40 Objective Remarks GENERAL: Deconditioned thin male, lying in bed in nad. SKIN: Warm and dry. HEAD: Normocephalic. EYES: No injection or drainage. NECK: Supple, trachea midline. CARDIOVASCULAR: Regular rate and rhythm RESPIRATORY: anterior canas clear. GASTROINTESTINAL: Abdomen soft, non-tender, nondistended. EXTREMITIES: No cyanosis NEUROLOGICAL: awake and alert, no obvious focal deficit. Assessment/Plan Problem List: (1) Sepsis ICD Codes: A41.9 - Sepsis, unspecified organism Plan: --ID following --Most recent blood cultures show no growth --on IV Vanco until 10/26 --echo on 09/12 showed vegetation (2) Pulmonary emboli ICD Codes: I26.99 - Other pulmonary embolism without acute cor pulmonale Status: Chronic Plan: --on Coumadin (on hold until platelet count rebounds) Assessment 47y/o male with high-grade diffuse large B-cell lymphoma admitted for pneumonia and nausea/vomiting as well as anemia. History of pulmonary embolism currently on anticoagulation. Hypertension. Protein-calorie malnutrition. Plan 1. continue antibiotics 2. continue Neupogen 3. monitor CBC Attending Statement The exam, history, and the medical decision-making described in the above note were completed with the assistance of the mid-level provider. I reviewed and agree with the findings presented. I attest that I had a [id number] encounter with the patient on the same day, and personally performed and documented my assessment and findings in the medical record. One episode semi-loose stool. No other complaints. Did not get OOB today. Platelets and WBC trending up. L axillary LN unchanged. Continue support. Problem Qualifiers (1) Sepsis: Qualified Codes: A41.02 - Sepsis due to methicillin resistant Staphylococcus aureus Brenda Platt Oct 07, 2017 11:11 Joanna Castellon MD Oct 07, 2017 18:56
--- NOTE | 2017-10-07 11:24 | HHI.PR ---
Subjective Remarks Follow-up sepsis/non-Hodgkin lymphoma 10/03/17-patient seen and examined, denies any acute event overnight. Currently afebrile. 10/04/17-patient seen and examined, no change in exam. Currently stable. Plts decreasing. 10/05/17-patient seen and examined, aching by mouth without any complication nausea and vomiting. Afebrile. Platelet count down to 17 10/06/17-patient seen and examined, no acute event overnight, stable. CBC pending this a.m. 10/07/17-patient seen and examined states Good appetite. Reported episode of dizziness yesterday while he was up and currently afebrile Objective Vitals Vital Signs Date Time Temp Pulse Resp B/P (MAP) Pulse Ox O2 Delivery O2 Flow Rate FiO2 10/07/17 08:55 Room Air 10/07/17 08:03 98.4 72 18 106/58 (74) 99 10/07/17 04:08 98.6 74 16 129/77 (94) 100 10/07/17 04:04 74 10/07/17 00:19 98.7 84 18 116/67 (83) 99 10/07/17 00:11 79 10/06/17 21:30 Room Air 10/06/17 20:55 98.7 86 18 107/69 (82) 98 10/06/17 20:14 86 10/06/17 18:00 98.4 80 18 100 10/06/17 17:18 99 21 10/06/17 13:03 97.8 75 18 116/78 (91) 100 I/O 10/06/17 10/06/17 10/06/17 10/07/17 10/07/17 10/07/17 07:00 15:00 23:00 07:00 15:00 23:00 Intake Total 262.5 ml 1080 ml 120 ml Output Total 700 ml 1000 ml 800 ml Balance -437.5 ml 80 ml -680 ml Intake Oral 1080 ml 120 ml IV Total 262.5 ml Output Urine Total 700 ml 1000 ml 800 ml # Bowel Movements 2 1 Result Diagram: 10/07/1740910/07/17409 Objective Remarks GENERAL: NAD SKIN: Warm and dry. HEAD: Normocephalic. EYES: No scleral icterus. No injection or drainage. NECK: Supple, trachea midline. No JVD or lymphadenopathy. CARDIOVASCULAR: Regular rate and rhythm without murmurs, gallops, or rubs. RESPIRATORY: Breath sounds equal bilaterally. No accessory muscle use. GASTROINTESTINAL: Abdomen soft, non-tender, nondistended. MUSCULOSKELETAL: No cyanosis, or edema. BACK: Nontender without obvious deformity. No CVA tenderness. Procedures None. 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 difficile colitis ICD Code: A04.7 - Enterocolitis due to Clostridium difficile Status: Resolved (7) Sepsis ICD Code: A41.9 - Sepsis, unspecified organism (8) Debility ICD Code: R53.81 - Other malaise Status: Acute (9) Atrial fibrillation with RVR ICD Code: I48.91 - Unspecified atrial fibrillation (10) Sepsis due to methicillin resistant Staphylococcus aureus (MRSA) ICD Code: A41.02 - Sepsis due to Methicillin resistant Staphylococcus aureus Assessment and Plan 47 year-old man with 1. Sepsis, MRSA tricuspid valve endocarditis, MRSA bacteremia, bilateral pneumonia - Patient underwent Port removal 09/10. - 2-D echocardiogram with tricuspid valve vegetation - ID following. Continue with Vancomycin for 6 weeks through October 26 2. C difficile diarrhea/colitis. - s/p Vancomycin PO 14 days total - Diarrhea resolved. 3. 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 Patient will get Neulasta as an outpatient. 4. Atrial fibrillation with rapid ventricular rate - Currently rate controlled Continue by mouth Cardizem. 5. Microcytic hypochromic anemia: - Improved Status post blood transfusion 6. Severe protein calorie malnutrition due to the colitis - Continue Marinol. - Dietitian following. 7. Hypokalemia - Replace electrolyte and monitor 8. Essential Hypertension: - Procardia xl 60 mg po daily 9. H/O PE, and nonocclusive thrombus in jugular vein - Had massive PE requiring tPA in April 2017. Warfarin on hold secondary to thrombocytopenia 10. Debility. - Continue PT 11. Thrombocytopenia Plts up to 31 10/07/17 Coumadin on hold DVT Prophylaxis: SCDs. Problem Qualifiers (1) Non-Hodgkin lymphoma: Qualified Codes: C83.38 - Diffuse large b-cell lymphoma, lymph nodes of multiple sites (2) Anemia: Qualified Codes: D64.9 - Anemia, unspecified (3) Sepsis: Qualified Codes: A41.02 - Sepsis due to methicillin resistant Staphylococcus aureus Tray Turner MD Oct 07, 2017 11:24
[2017-10-07] MEDS: FILGRASTIM INJ 300 MCG in DEXTROSE 5% IN WATER INJ 24 ML IV SCH ×2 (18:27)
[2017-10-07] MEDS: VANCOMYCIN INJ 1,250 MG in SODIUM CHLOR 0.9% 250 ML INJ 250 ML IV SCH (20:59)
[2017-10-08] VITALS (9 sets, daily range): BP systolic 107–125; BP diastolic 67–82; PULSE 68–94; RESP 16–22; TEMP 98.1–98.8; O2SAT 99–100
[2017-10-08] MEDS: DILTIAZEM HCL 30 MG TAB PO SCH ×4 (00:08→17:33)
[2017-10-08 05:33] LABS: AUTOMATED NEUTROPHIL # 2.7 TH/MM3 (1.8-7.7); BASOPHIL % 0.3 % (0.0-2.0); EOSINOPHIL % 0.6 % (0.0-4.0); HEMATOCRIT 27.6 % (39.0-51.0); HEMOGLOBIN 9.1 GM/DL (13.0-17.0); LYMPHOCYTE # 0.6 TH/MM3 (1.0-4.8); MEAN CELL VOLUME 80.4 FL (80.0-100.0); MEAN CORPUSCULAR HEMOGLOBIN 26.5 PG (27.0-34.0); MEAN CORPUSCULAR HGB CONC 32.9 % (32.0-36.0); MEAN PLATELET VOLUME 8.2 FL (7.0-11.0); MONO % 13.7 % (0.0-8.0); MONOCYTE # 0.5 TH/MM3 (0-0.9); NEUT % 69.4 % (16.0-70.0); PLATELET COUNT 62 TH/MM3 (150-450); RED BLOOD COUNT 3.44 MIL/MM3 (4.50-5.90); RED CELL DISTRIBUTION WIDTH 16.5 % (11.6-17.2); WHITE BLOOD COUNT 3.9 TH/MM3 (4.0-11.0)
[2017-10-08 05:45] LABS: INTERNATIONAL NORMALIZED RATIO 1.4 RATIO; PROTHROMBIN TIME - PATIENT 14.2 SEC (9.8-11.6)
[2017-10-08 05:59] LABS: CREATININE 0.69 MG/DL (0.60-1.30)
[2017-10-08 06:48] LABS: BANDS 16 % (0-6); DOHLE BODIES PRESENT (NONE SEEN); LYMPHOCYTES 9 % (9-44); MONOCYTES 12 % (0-8); NEUTROPHIL # MANUAL DIFF 3.1 TH/MM3 (1.8-7.7); POLYS (SEG NEUTROPHILS) 63 % (16-70)
[2017-10-08] MEDS: SODIUM CHLORIDE 0.9% FLUSH 10 ML FLUSH IV FLUSH SCH ×3 (09:00→22:13)
--- NOTE | 2017-10-08 09:18 | PD.ONC.PN ---
Subjective Subjective Remarks Afebrile overnight. Patient resting in bed in nad. No complaints. Eager to go home. Objective Data Date Time Temp Pulse Resp B/P (MAP) Pulse Ox O2 Delivery O2 Flow Rate FiO2 10/08/17 08:53 99 21 10/08/17 04:58 98.5 71 16 107/67 (80) 100 10/08/17 00:06 98.8 79 16 107/70 (82) 100 10/07/17 23:17 Room Air 10/07/17 21:01 98.7 88 16 112/69 (83) 99 10/07/17 20:19 83 10/07/17 18:00 98.4 84 18 112/ 97 10/08/17 10/08/17 10/08/17 07:00 15:00 23:00 Output Total 1000 ml Balance -1000 ml Result Diagram: 10/08/17 0500 10/08/17 0500 Laboratory Results Laboratory Tests Test 10/08/17 05:00 White Blood Count 3.9 TH/MM3 Red Blood Count 3.44 MIL/MM3 Hemoglobin 9.1 GM/DL Hematocrit 27.6 % Mean Corpuscular Volume 80.4 FL Mean Corpuscular Hemoglobin 26.5 PG Mean Corpuscular Hemoglobin Concent 32.9 % Red Cell Distribution Width 16.5 % Platelet Count 62 TH/MM3 Mean Platelet Volume 8.2 FL Neutrophils (%) (Auto) 69.4 % Lymphocytes (%) (Auto) 16.0 % Monocytes (%) (Auto) 13.7 % Eosinophils (%) (Auto) 0.6 % Basophils (%) (Auto) 0.3 % Neutrophils # (Auto) 2.7 TH/MM3 Lymphocytes # (Auto) 0.6 TH/MM3 Monocytes # (Auto) 0.5 TH/MM3 Eosinophils # (Auto) 0.0 TH/MM3 Basophils # (Auto) 0.0 TH/MM3 CBC Comment AUTO DIFF Differential Total Cells Counted 100 Neutrophils % (Manual) 63 % Band Neutrophils % 16 % Lymphocytes % 9 % Monocytes % 12 % Neutrophils # (Manual) 3.1 TH/MM3 Differential Comment FINAL DIFF MANUAL Dohle Bodies PRESENT Platelet Estimate LOW Platelet Morphology Comment NORMAL Red Cell Morphology Comment NORMAL Prothrombin Time 14.2 SEC Prothromb Time International Ratio 1.4 RATIO Creatinine 0.69 MG/DL Estimat Glomerular Filtration Rate 148 ML/MIN Administered Medications Medications (Trade) Dose Ordered Sig/Shyla Route PRN Reason Start Time Stop Time Status Last Admin Dose Admin Sodium Chloride (NS Flush) 2 ml UNSCH PRN IV FLUSH FLUSH AFTER USING IV ACCESS 09/06/17 13:00 09/08/17 22:44 Sodium Chloride (NS Flush) 2 ml BID IV FLUSH 09/06/17 21:00 10/07/17 21:00 Acetaminophen (Tylenol) 650 mg Q4H PRN PO headache, fever, pain 1-4 09/06/17 13:00 09/06/17 19:41 Ondansetron HCl (Zofran Inj) 4 mg Q6H PRN IVP NAUSEA OR VOMITING 09/06/17 13:00 09/21/17 19:40 Dronabinol (Marinol) 2.5 mg BID@11,16 PO 09/07/17 11:00 10/07/17 18:27 Lactobacillus Acidophilus (Lactinex) 1 tab TID PO 09/11/17 09:00 10/07/17 18:00 Sodium Chloride (NS Flush) See Protocol DAILY IV FLUSH 09/19/17 09:00 10/07/17 10:57 Heparin Sodium (Porcine) (Heparin Central Flush) See Protocol DAILY IV FLUSH 09/19/17 09:00 10/07/17 10:57 Heparin Sodium (Porcine) (Heparin Central Flush) See Protocol UNSCH PRN IV FLUSH SEE PROTOCOL TABLE 09/18/17 15:15 10/07/17 06:14 Sodium Chloride (NS Flush) UNSCH PRN IV FLUSH SEE PROTOCOL TABLE 09/18/17 15:15 10/07/17 00:23 Magnesium Oxide (Mag-Ox) 400 mg DAILY PO 09/19/17 09:00 10/07/17 10:56 Diltiazem HCl (Cardizem) 30 mg Q6HR PO 09/22/17 00:00 10/08/17 04:57 Potassium Chloride (KCl) 10 meq Q12HR PO 09/22/17 21:00 10/07/17 21:00 Vancomycin HCl 1250 mg/Sodium Chloride 262.5 ml @ 250 mls/hr Q24H IV 09/25/17 21:00 10/07/17 20:59 Nifedipine (Procardia Xl) 60 mg DAILY PO 09/28/17 09:30 10/07/17 10:56 Filgrastim 300 mcg/Dextrose 25 ml @ 100 mls/hr DAILY@14 IV 09/30/17 14:00 10/07/17 18:27 Warfarin Sodium (Coumadin) 3 mg DAILY@1600 PO 10/01/17 16:00 Future Hold 10/03/17 16:40 Objective Remarks GENERAL: Deconditioned male, lying in bed watching TV in nad. SKIN: Warm and dry. HEAD: Normocephalic. EYES: No injection or drainage. NECK: Supple, trachea midline. CARDIOVASCULAR: Regular rate and rhythm RESPIRATORY: anterior canas clear. GASTROINTESTINAL: Abdomen soft, non-tender, nondistended. EXTREMITIES: No cyanosis NEUROLOGICAL: awake and alert, normal speech. moving all extremities. no obvious focal deficit. Assessment/Plan Problem List: (1) Sepsis ICD Codes: A41.9 - Sepsis, unspecified organism Plan: --ID following --Most recent blood cultures show no growth --on IV Vanco until 10/26 --echo on 09/12 showed vegetation (2) Pulmonary emboli ICD Codes: I26.99 - Other pulmonary embolism without acute cor pulmonale Status: Chronic Plan: --on Coumadin (on hold until platelet count rebounds) Assessment 47y/o male with high-grade diffuse large B-cell lymphoma admitted for pneumonia and nausea/vomiting as well as anemia. History of pulmonary embolism currently on anticoagulation. Hypertension. Protein-calorie malnutrition. Plan 1. continue antibiotics 2. resume Coumadin 3. monitor CBC 4. ok to go home from oncology standpoint. Attending Statement The exam, history, and the medical decision-making described in the above note were completed with the assistance of the mid-level provider. I reviewed and agree with the findings presented. I attest that I had a [id number] encounter with the patient on the same day, and personally performed and documented my assessment and findings in the medical record. Pt seen and examined. No change. Unmotivated. L axillary mass persist. Cytopenias improve with recovery from chemo. Problem Qualifiers (1) Sepsis: Qualified Codes: A41.02 - Sepsis due to methicillin resistant Staphylococcus aureus Brenda Platt Oct 08, 2017 09:18 Jonana Castellon MD Oct 08, 2017 17:37
--- NOTE | 2017-10-08 10:07 | HHI.PR ---
Subjective Remarks Follow-up sepsis/non-Hodgkin lymphoma 10/03/17-patient seen and examined, denies any acute event overnight. Currently afebrile. 10/04/17-patient seen and examined, no change in exam. Currently stable. Plts decreasing. 10/05/17-patient seen and examined, aching by mouth without any complication nausea and vomiting. Afebrile. Platelet count down to 17 10/06/17-patient seen and examined, no acute event overnight, stable. CBC pending this a.m. 10/07/17-patient seen and examined states Good appetite. Reported episode of dizziness yesterday while he was up and currently afebrile 10/08/17-patient seen and examined, no acute event overnight. Platelet up to 62. Wants to go home Objective Vitals Vital Signs Date Time Temp Pulse Resp B/P (MAP) Pulse Ox O2 Delivery O2 Flow Rate FiO2 10/08/17 08:53 99 21 10/08/17 04:58 98.5 71 16 107/67 (80) 100 10/08/17 00:06 98.8 79 16 107/70 (82) 100 10/07/17 23:17 Room Air 10/07/17 21:01 98.7 88 16 112/69 (83) 99 10/07/17 20:19 83 10/07/17 18:00 98.4 84 18 112/ 97 I/O 10/07/17 10/07/17 10/07/17 10/08/17 10/08/17 10/08/17 07:00 15:00 23:00 07:00 15:00 23:00 Intake Total 120 ml 26.5 ml Output Total 800 ml 1000 ml Balance -680 ml 26.5 ml -1000 ml Intake Oral 120 ml IV Total 26.5 ml Output Urine Total 800 ml 1000 ml # Bowel Movements 1 Result Diagram: 10/08/17 0500 10/08/17 0500 Imaging Last Impressions Chest X-Ray 09/18/17 0000 Signed Impressions: Service Date/Time: Monday, September 18, 2017 15:43 - CONCLUSION: 1. The left PICC line is in good position at the atrial junction. 2. Stable bilateral bibasilar airspace disease, left greater than right. 3. Probable trace left pleural effusion. Liang Peralta MD Upper Extremity Ultrasound 11/30/17 0000 Signed Impressions: Service Date/Time: August 13:56 - CONCLUSION: 1. Nonocclusive thrombus in the jugular vein. 2. The other vessels are patent. 3. Solid lobular mass in the supraclavicular region consistent with adenopathy in this patient with history of lymphoma. Goldy Suarez MD Port Line Revision 09/08/17 0000 Signed Impressions: Service Date/Time: Friday, September 08, 2017 00:00 - CONCLUSION: Uncomplicated port removal as above. Adama Briceño MD Chest CT 09/06/17 0000 Signed Impressions: Service Date/Time: Wednesday, September 06, 2017 15:57 - CONCLUSION: 1. Patchy bilateral air space consolidation in both lung bases. Differential diagnosis includes bronchopneumonia and aspiration. Small pleural effusions improved from April. 2. Extensive mediastinal adenopathy also improved from April. Travis Ruffin MD Objective Remarks GENERAL: NAD SKIN: Warm and dry. HEAD: Normocephalic. EYES: No scleral icterus. No injection or drainage. NECK: Supple, trachea midline. No JVD or lymphadenopathy. CARDIOVASCULAR: Regular rate and rhythm without murmurs, gallops, or rubs. RESPIRATORY: Breath sounds equal bilaterally. No accessory muscle use. GASTROINTESTINAL: Abdomen soft, non-tender, nondistended. MUSCULOSKELETAL: No cyanosis, or edema. BACK: Nontender without obvious deformity. No CVA tenderness. Procedures None. 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 difficile colitis ICD Code: A04.7 - Enterocolitis due to Clostridium difficile Status: Resolved (7) Sepsis ICD Code: A41.9 - Sepsis, unspecified organism (8) Debility ICD Code: R53.81 - Other malaise Status: Acute (9) Atrial fibrillation with RVR ICD Code: I48.91 - Unspecified atrial fibrillation (10) Sepsis due to methicillin resistant Staphylococcus aureus (MRSA) ICD Code: A41.02 - Sepsis due to Methicillin resistant Staphylococcus aureus Assessment and Plan 47 year-old man with 1. Sepsis, MRSA tricuspid valve endocarditis, MRSA bacteremia, bilateral pneumonia - Patient underwent Port removal 09/10. - 2-D echocardiogram with tricuspid valve vegetation - ID following. Continue with Vancomycin for 6 weeks through 10/26/17 2. C difficile diarrhea/colitis. - s/p Vancomycin PO 14 days total - Diarrhea resolved. 3. 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 Patient will get Neulasta as an outpatient. 4. Atrial fibrillation with rapid ventricular rate - Currently rate controlled Continue by mouth Cardizem. 5. Microcytic hypochromic anemia: - Improved Status post blood transfusion 6. Severe protein calorie malnutrition due to the colitis - Continue Marinol. - Dietitian following. 7. Hypokalemia - Replace electrolyte and monitor 8. Essential Hypertension: - Procardia xl 60 mg po daily 9. H/O PE, and nonocclusive thrombus in jugular vein - Had massive PE requiring tPA in April 2017. Resume Coumadin 10/08/17 and monitor INR 10. Debility. - Continue PT 11. Thrombocytopenia Plts up to 62 10/08/17 Resume Coumadin today DVT Prophylaxis: SCDs. Problem Qualifiers (1) Non-Hodgkin lymphoma: Qualified Codes: C83.38 - Diffuse large b-cell lymphoma, lymph nodes of multiple sites (2) Anemia: Qualified Codes: D64.9 - Anemia, unspecified (3) Sepsis: Qualified Codes: A41.02 - Sepsis due to methicillin resistant Staphylococcus aureus Tray Turner MD Oct 08, 2017 10:07
[2017-10-08] MEDS ORDERED: MAGN400T2 PO (10:13)
[2017-10-08] MEDS ORDERED: DRON2.5 PO (10:13)
[2017-10-08] MEDS ORDERED: LACT PO (10:13)
[2017-10-08] MEDS ORDERED: KLOR10TA PO (10:13)
[2017-10-08] MEDS ORDERED: COUM3TAB PO (10:13)
[2017-10-08] MEDS ORDERED: DILT31TA PO (10:13)
[2017-10-08] MEDS ORDERED: NIFE60TA8 PO (10:13)
--- NOTE | 2017-10-08 10:15 | HHI.DS ---
Discharge Summary Admission Date Sep 06, 2017 at 13:04 Discharge Date: Oct 08, 2017 Admitting Diagnosis anemia (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 difficile colitis ICD Code: A04.7 - Enterocolitis due to Clostridium difficile Status: Resolved (7) Sepsis ICD Code: A41.9 - Sepsis, unspecified organism (8) Debility ICD Code: R53.81 - Other malaise Status: Acute (9) Atrial fibrillation with RVR ICD Code: I48.91 - Unspecified atrial fibrillation (10) Sepsis due to methicillin resistant Staphylococcus aureus (MRSA) ICD Code: A41.02 - Sepsis due to Methicillin resistant Staphylococcus aureus Procedures None. Brief History - From Admission Written by Nancy Brunner, acting as scribe for Dr. Zavala on 09/06/17 at 1325. Mr. Werner is a 47-year-old male patient with a known medical history of non- Hodgkin B-cell lymphoma, hypertension and history of PE who presented to the ED with complaints of generalized weakness, nausea, vomiting and cough. Patient states he has been feeling increasingly weak, unable to tolerate PO intake due to nausea and vomiting and cough x 1 week. Admits to dark stools, no presence of hematochezia. 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 Connelly. He does admit to receiving chemotherapy 2 weeks ago with a scheduled dose this week. Denies any recent chest pain, palpitations, diarrhea, hematuria or abdominal pain. Denies any dysuria. Hemoglobin 6.6 on presentation to ED, 2 units PRBC have been ordered. Acutely febrile, temp 102.5. WBC 20.9. BC and urine cultures pending. CXR pending. Status post 3 L NS bolus in ED. CBC/BMP: 10/08/17 0500 10/08/17 0500 Significant Findings Laboratory Tests Test 10/06/17 05:30 10/06/17 19:15 10/06/17 21:15 10/07/17 04:10 Prothrombin Time 19.6 SEC (9.8-11.6) 17.1 SEC (9.8-11.6) Blood Urea Nitrogen 4 MG/DL (7-18) 3 MG/DL (7-18) Calcium Level 7.6 MG/DL (8.5-10.1) 7.8 MG/DL (8.5-10.1) White Blood Count 0.6 TH/MM3 (4.0-11.0) 1.0 TH/MM3 (4.0-11.0) Red Blood Count 3.41 MIL/MM3 (4.50-5.90) 3.29 MIL/MM3 (4.50-5.90) Hemoglobin 9.1 GM/DL (13.0-17.0) 8.8 GM/DL (13.0-17.0) Hematocrit 27.2 % (39.0-51.0) 26.4 % (39.0-51.0) Mean Corpuscular Volume 79.9 FL (80.0-100.0) Mean Corpuscular Hemoglobin 26.7 PG (27.0-34.0) 26.9 PG (27.0-34.0) Platelet Count 28 TH/MM3 (150-450) 31 TH/MM3 (150-450) Lymphocytes (%) (Auto) 52.2 % (9.0-44.0) Monocytes (%) (Auto) 14.8 % (0.0-8.0) Neutrophils # (Auto) 0.2 TH/MM3 (1.8-7.7) Lymphocytes # (Auto) 0.3 TH/MM3 (1.0-4.8) Band Neutrophils % 9 % (0-6) Lymphocytes % 56 % (9-44) Monocytes % 15 % (0-8) Neutrophils # (Manual) 0.2 TH/MM3 (1.8-7.7) 0.5 TH/MM3 (1.8-7.7) Platelet Estimate LOW (NORMAL) LOW (NORMAL) Vancomycin Level Trough 14.7 MCG/ML (5.0-10.0) Red Cell Distribution Width 17.5 % (11.6-17.2) Metamyelocytes 2 % (0-1) Ovalocytes 1+ (NORMAL) Potassium Level 3.4 MEQ/L (3.5-5.1) Test 10/08/17 05:00 White Blood Count 3.9 TH/MM3 (4.0-11.0) Red Blood Count 3.44 MIL/MM3 (4.50-5.90) Hemoglobin 9.1 GM/DL (13.0-17.0) Hematocrit 27.6 % (39.0-51.0) Mean Corpuscular Hemoglobin 26.5 PG (27.0-34.0) Platelet Count 62 TH/MM3 (150-450) Monocytes (%) (Auto) 13.7 % (0.0-8.0) Lymphocytes # (Auto) 0.6 TH/MM3 (1.0-4.8) Band Neutrophils % 16 % (0-6) Monocytes % 12 % (0-8) Dohle Bodies PRESENT (NONE SEEN) Platelet Estimate LOW (NORMAL) Prothrombin Time 14.2 SEC (9.8-11.6) Imaging Last Impressions Chest X-Ray 09/18/17 0000 Signed Impressions: Service Date/Time: Monday, September 18, 2017 15:43 - CONCLUSION: 1. The left PICC line is in good position at the atrial junction. 2. Stable bilateral bibasilar airspace disease, left greater than right. 3. Probable trace left pleural effusion. Liang Peralta MD Upper Extremity Ultrasound 09/10/17 0000 Signed Impressions: Service Date/Time: August 13:56 - CONCLUSION: 1. Nonocclusive thrombus in the jugular vein. 2. The other vessels are patent. 3. Solid lobular mass in the supraclavicular region consistent with adenopathy in this patient with history of lymphoma. Goldy Suarez MD Port Line Revision 09/08/17 0000 Signed Impressions: Service Date/Time: Friday, September 08, 2017 00:00 - CONCLUSION: Uncomplicated port removal as above. Adama Briceño MD Chest CT 09/06/17 0000 Signed Impressions: Service Date/Time: Wednesday, September 06, 2017 15:57 - CONCLUSION: 1. Patchy bilateral air space consolidation in both lung bases. Differential diagnosis includes bronchopneumonia and aspiration. Small pleural effusions improved from April. 2. Extensive mediastinal adenopathy also improved from April. Travis Ruffin MD PE at Discharge GENERAL: NAD SKIN: Warm and dry. HEAD: Normocephalic. EYES: No scleral icterus. No injection or drainage. NECK: Supple, trachea midline. No JVD or lymphadenopathy. CARDIOVASCULAR: Regular rate and rhythm without murmurs, gallops, or rubs. RESPIRATORY: Breath sounds equal bilaterally. No accessory muscle use. GASTROINTESTINAL: Abdomen soft, non-tender, nondistended. MUSCULOSKELETAL: No cyanosis, or edema. BACK: Nontender without obvious deformity. No CVA tenderness. Hospital Course While in the hospital, patient was treated for 1. Sepsis, MRSA tricuspid valve endocarditis, MRSA bacteremia, bilateral pneumonia - Patient underwent Port removal 09/10. - 2-D echocardiogram with tricuspid valve vegetation - Infectious disease specialist was consulted and patient was placed on Vancomycin for 6 weeks through 10/26/17 2. C difficile diarrhea/colitis. - He completed treatment of Vancomycin PO 14 days total with resolution of diarrhea 3. 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 4. Atrial fibrillation with rapid ventricular rate - Cardiology was consulted, and patient was initially started on Cardizem drip which was subsequently switched to by mouth as his heart rate remained controlled 5. Microcytic hypochromic anemia: - Improved Status post blood transfusion 6. Severe protein calorie malnutrition due to the colitis - He was treated with Marinol. 7. Hypokalemia - Replace electrolyte and monitor 8. Essential Hypertension: -Was continued on Procardia xl 60 mg po daily 9. H/O PE, and nonocclusive thrombus in jugular vein - Had massive PE requiring tPA in April 2017. Patient was initially on Coumadin however secondary to thrombocytopenia this was held. However prior to discharge Coumadin was resumed as platelets Improved 10. Debility. - Continue PT 11. Thrombocytopenia Plts up to 62 10/08/17 prior to discharge DVT Prophylaxis: SCDs. Pt Condition on Discharge: Stable Discharge Disposition: Discharge to SNF Discharge Time: > 30 minutes Discharge Instructions DIET: Follow Instructions for: As Tolerated, No Restrictions Activities you can perform: Regular-No Restrictions, See Additionl Instruction Other Activity Instructions: as per PT instructions. out of bed with assistance Follow up Referrals: Oncology PCP Follow-up - 2-3 Days New Orders: PT/INR - Daily New Medications: Epinephrine Inj (Epinephrine Inj) 1 Mg/Ml (1 Ml) Inj 0.3 MG IV PUSH ONCE PRN for ALLERGIC REACTION, #1 VIAL Epinephrine Inj (Epinephrine Inj) 1 Mg/Ml (1 Ml) Inj 0.3 MG SQ ONCE PRN for ALLERGIC REACTION, #1 VIAL Give with any signs of respiratory distress. Hydrocortisone Inj (Solu-Cortef Inj) 250 Mg/2 Ml Inj 250 MG IV PUSH ONCE PRN for ALLERGIC REACTION, #1 VIAL 0 Refills Give over 30-60 seconds. Vancomycin Inj (Vancomycin Inj) 10 Gram Inj 1250 MG IV DAILY for Infection for 30 Days, VIAL Wheelchair (Wheelchair) 1 Mis Mis EA .ROUTE DIRECTED for debility, #1 0 Refills Diltiazem (Cardizem) 30 Mg Tab 30 MG PO Q6HR for Blood Pressure Management, #120 TAB 3 Refills Dronabinol (Marinol) 2.5 Mg Cap 2.5 MG PO BID@11,16 for Immunosuppression, #60 CAP Lactobacillus Acidophilus (Acidophilus/l-Sporogenes) 35 Million Cell-25 Million Cell Tab 1 TAB PO TID for Immunosuppression, #90 TAB Magnesium Oxide (Magnesium Oxide) 400 Mg Tab 400 MG PO DAILY for Electrolyte Replacement, #10 TAB Nifedipine ER 24 HR (Nifedipine ER 24 HR) 60 Mg Tab 60 MG PO DAILY for Blood Pressure Management, #30 TAB 3 Refills Potassium Chloride ER (Klor-Con 10) 10 Meq Tab 10 MEQ PO Q12HR for Electrolyte Replacement, #6 TAB Warfarin (Coumadin) 3 Mg Tab 3 MG PO DAILY@1600 for Prevent Blood Clot, #30 TAB 3 Refills Discontinued Medications: Dronabinol (Dronabinol) 5 Mg Cap 5 MG PO BID@11,16 for appetite, #60 CAP Nifedipine (Nifedipine ER) 90 Mg Tab 90 MG PO DAILY for Blood Pressure Management, #30 TAB Warfarin (Coumadin) 5 Mg Tab 5 MG PO DAILY for Blood Clot Prevention, #30 TAB 0 Refills Tray Turner MD Oct 08, 2017 10:15
[2017-10-08] MEDS: LACTOBACILLUS ACIDOPHILUS TAB PO SCH ×3 (10:27→17:33)
[2017-10-08] MEDS: MAGNESIUM OXIDE 400 MG TAB PO SCH (10:28)
[2017-10-08] MEDS: NIFEdipine 60 MG SUSTAINED RELEASE TAB PO SCH (10:28)
[2017-10-08] MEDS: POTASSIUM CHLORIDE 10 MEQ CONTROLLED RELEASE TAB PO SCH ×2 (10:29→22:13)
[2017-10-08] MEDS: DRONABINOL 2.5 MG CAP PO SCH ×2 (12:02→17:33)
[2017-10-08] MEDS: FILGRASTIM INJ 300 MCG in DEXTROSE 5% IN WATER INJ 24 ML IV SCH ×2 (14:00)
[2017-10-08] MEDS: WARFARIN SOD 3 MG TAB PO SCH (17:33)
[2017-10-08] MEDS ORDERED: PHARMACY ORDERED LAB ONE (20:45)
[2017-10-08] MEDS: VANCOMYCIN INJ 1,250 MG in SODIUM CHLOR 0.9% 250 ML INJ 250 ML IV SCH (22:13)
[2017-10-09 00:09] VITALS: PULSE 79
[2017-10-09] MEDS: DILTIAZEM HCL 30 MG TAB PO SCH ×2 (01:59→06:19)
[2017-10-09 02:04] VITALS: BP 121/91; PULSE 80; RESP 16; O2SAT 100
[2017-10-09 04:14] VITALS: PULSE 72
[2017-10-09 06:19] VITALS: BP 128/74; PULSE 77; RESP 16; O2SAT 100
[2017-10-09 07:14] LABS: INTERNATIONAL NORMALIZED RATIO 1.4 RATIO; PROTHROMBIN TIME - PATIENT 13.7 SEC (9.8-11.6)
[2017-10-09 07:28] LABS: AUTOMATED NEUTROPHIL # 5.8 TH/MM3 (1.8-7.7); BASOPHIL % 0.4 % (0.0-2.0); EOSINOPHIL % 0.3 % (0.0-4.0); HEMATOCRIT 28.5 % (39.0-51.0); HEMOGLOBIN 9.6 GM/DL (13.0-17.0); LYMPH % 11.9 % (9.0-44.0); LYMPHOCYTE # 0.9 TH/MM3 (1.0-4.8); MEAN CELL VOLUME 81.5 FL (80.0-100.0); MEAN CORPUSCULAR HEMOGLOBIN 27.4 PG (27.0-34.0); MEAN CORPUSCULAR HGB CONC 33.6 % (32.0-36.0); MEAN PLATELET VOLUME 7.9 FL (7.0-11.0); MONO % 9.4 % (0.0-8.0); MONOCYTE # 0.7 TH/MM3 (0-0.9); PLATELET COUNT 102 TH/MM3 (150-450); RED CELL DISTRIBUTION WIDTH 17.1 % (11.6-17.2); WHITE BLOOD COUNT 7.5 TH/MM3 (4.0-11.0)
[2017-10-09 07:34] LABS: BICARBONATE 28.3 MEQ/L (21.0-32.0); CALCIUM 8.3 MG/DL (8.5-10.1); CREATININE 0.63 MG/DL (0.60-1.30)
[2017-10-09 08:32] LABS: BANDS 10 % (0-6); LYMPHOCYTES 10 % (9-44); METAMYELOCYTES 1 % (0-1); MONOCYTES 4 % (0-8); MYELOCYTES 1 % (0-0); NEUTROPHIL # MANUAL DIFF 6.5 TH/MM3 (1.8-7.7); POLYS (SEG NEUTROPHILS) 73 % (16-70); PROMYELOCYTES 1 % (0-0)
[2017-10-09 08:57] VITALS: BP 120/79; PULSE 72; RESP 16; TEMP 98.5; O2SAT 100
[2017-10-09] MEDS: MAGNESIUM OXIDE 400 MG TAB PO SCH (09:01)
[2017-10-09] MEDS: POTASSIUM CHLORIDE 10 MEQ CONTROLLED RELEASE TAB PO SCH (09:01)
[2017-10-09] MEDS: LACTOBACILLUS ACIDOPHILUS TAB PO SCH (09:01)
[2017-10-09] MEDS: NIFEdipine 60 MG SUSTAINED RELEASE TAB PO SCH (09:01)
[2017-10-09] MEDS: SODIUM CHLORIDE 0.9% FLUSH 10 ML FLUSH IV FLUSH SCH (09:02)
--- NOTE | 2017-10-09 09:08 | PD.ONC.PN ---
Subjective Subjective Remarks Afebrile overnight. Patient resting in bed. No complaints. Stating he is going to be more active when he goes home. Objective Data Date Time Temp Pulse Resp B/P (MAP) Pulse Ox O2 Delivery O2 Flow Rate FiO2 10/09/17 06:19 77 16 128/74 (92) 100 10/09/17 04:14 72 10/09/17 02:04 80 16 121/91 (101) 100 10/09/17 00:09 79 10/08/17 22:09 98.5 68 18 125/77 (93) 100 10/08/17 22:00 Room Air 21 10/08/17 22:00 83 10/08/17 17:36 98.7 94 18 125/67 (86) 99 10/08/17 17:26 99 21 10/08/17 13:25 84 10/08/17 13:25 Room Air 10/08/17 12:01 98.1 75 22 124/82 (96) 100 10/09/17 10/09/17 10/09/17 07:00 15:00 23:00 Intake Total 262.5 ml Output Total 1125 ml Balance -862.5 ml Result Diagram: 10/09/1762710/09/1728 Laboratory Results Laboratory Tests Test 10/08/17 22:15 10/09/17 06:28 Vancomycin Level Trough 14.7 MCG/ML White Blood Count 7.5 TH/MM3 Red Blood Count 3.50 MIL/MM3 Hemoglobin 9.6 GM/DL Hematocrit 28.5 % Mean Corpuscular Volume 81.5 FL Mean Corpuscular Hemoglobin 27.4 PG Mean Corpuscular Hemoglobin Concent 33.6 % Red Cell Distribution Width 17.1 % Platelet Count 102 TH/MM3 Mean Platelet Volume 7.9 FL Neutrophils (%) (Auto) 78.0 % Lymphocytes (%) (Auto) 11.9 % Monocytes (%) (Auto) 9.4 % Eosinophils (%) (Auto) 0.3 % Basophils (%) (Auto) 0.4 % Neutrophils # (Auto) 5.8 TH/MM3 Lymphocytes # (Auto) 0.9 TH/MM3 Monocytes # (Auto) 0.7 TH/MM3 Eosinophils # (Auto) 0.0 TH/MM3 Basophils # (Auto) 0.0 TH/MM3 CBC Comment AUTO DIFF Differential Total Cells Counted 100 Neutrophils % (Manual) 73 % Band Neutrophils % 10 % Lymphocytes % 10 % Monocytes % 4 % Neutrophils # (Manual) 6.5 TH/MM3 Metamyelocytes 1 % Myelocytes 1 % Promyelocytes 1 % Differential Comment FINAL DIFF MANUAL Platelet Estimate LOW Platelet Morphology Comment NORMAL Red Cell Morphology Comment NORMAL Prothrombin Time 13.7 SEC Prothromb Time International Ratio 1.4 RATIO Blood Urea Nitrogen 3 MG/DL Creatinine 0.63 MG/DL Random Glucose 76 MG/DL Calcium Level 8.3 MG/DL Sodium Level 142 MEQ/L Potassium Level 3.0 MEQ/L Chloride Level 105 MEQ/L Carbon Dioxide Level 28.3 MEQ/L Anion Gap 9 MEQ/L Estimat Glomerular Filtration Rate 164 ML/MIN Administered Medications Medications (Trade) Dose Ordered Sig/Shyla Route PRN Reason Start Time Stop Time Status Last Admin Dose Admin Sodium Chloride (NS Flush) 2 ml UNSCH PRN IV FLUSH FLUSH AFTER USING IV ACCESS 09/06/17 13:00 09/08/17 22:44 Sodium Chloride (NS Flush) 2 ml BID IV FLUSH 09/06/17 21:00 10/08/17 22:13 Acetaminophen (Tylenol) 650 mg Q4H PRN PO headache, fever, pain 1-4 09/06/17 13:00 09/06/17 19:41 Ondansetron HCl (Zofran Inj) 4 mg Q6H PRN IVP NAUSEA OR VOMITING 09/06/17 13:00 09/21/17 19:40 Dronabinol (Marinol) 2.5 mg BID@11,16 PO 09/07/17 11:00 10/08/17 17:33 Lactobacillus Acidophilus (Lactinex) 1 tab TID PO 09/11/17 09:00 10/08/17 17:33 Sodium Chloride (NS Flush) See Protocol DAILY IV FLUSH 09/19/17 09:00 10/08/17 10:30 Heparin Sodium (Porcine) (Heparin Central Flush) See Protocol DAILY IV FLUSH 09/19/17 09:00 10/08/17 10:29 Heparin Sodium (Porcine) (Heparin Central Flush) See Protocol UNSCH PRN IV FLUSH SEE PROTOCOL TABLE 09/18/17 15:15 10/07/17 06:14 Sodium Chloride (NS Flush) UNSCH PRN IV FLUSH SEE PROTOCOL TABLE 09/18/17 15:15 10/07/17 00:23 Magnesium Oxide (Mag-Ox) 400 mg DAILY PO 09/19/17 09:00 10/08/17 10:28 Diltiazem HCl (Cardizem) 30 mg Q6HR PO 09/22/17 00:00 10/09/17 06:19 Potassium Chloride (KCl) 10 meq Q12HR PO 09/22/17 21:00 10/08/17 22:13 Vancomycin HCl 1250 mg/Sodium Chloride 262.5 ml @ 250 mls/hr Q24H IV 09/25/17 21:00 10/08/17 22:13 Nifedipine (Procardia Xl) 60 mg DAILY PO 09/28/17 09:30 10/08/17 10:28 Filgrastim 300 mcg/Dextrose 25 ml @ 100 mls/hr DAILY@14 IV 09/30/17 14:00 10/08/17 14:00 Warfarin Sodium (Coumadin) 3 mg DAILY@1600 PO 10/01/17 16:00 Future hold 10/08/17 17:33 Objective Remarks GENERAL: Deconditioned male, supine in bed in nad. SKIN: Warm and dry. HEAD: Normocephalic. EYES: No injection or drainage. NECK: Supple, trachea midline. CARDIOVASCULAR: Regular rate and rhythm RESPIRATORY: anterior canas clear. GASTROINTESTINAL: Abdomen soft, non-tender, nondistended. EXTREMITIES: No cyanosis NEUROLOGICAL: aox3 normal speech. moving extremities. Assessment/Plan Problem List: (1) Sepsis ICD Codes: A41.9 - Sepsis, unspecified organism Plan: --Most recent blood cultures show no growth --on IV Vanco until 10/26 --echo on 09/12 showed vegetation (2) Pulmonary emboli ICD Codes: I26.99 - Other pulmonary embolism without acute cor pulmonale Status: Chronic Plan: --on Coumadin Assessment 47y/o male with high-grade diffuse large B-cell lymphoma admitted for pneumonia and nausea/vomiting as well as anemia. History of pulmonary embolism currently on anticoagulation. Hypertension. Protein-calorie malnutrition. Plan 1. clear for discharge 2. follow up in clinic once discharged. Problem Qualifiers (1) Sepsis: Qualified Codes: A41.02 - Sepsis due to methicillin resistant Staphylococcus aureus Brenda Platt Oct 09, 2017 09:08 Sary Carpio MD Oct 09, 2017 17:57
--- NOTE | 2017-10-09 10:01 | HHI.PR ---
Subjective Remarks Follow-up sepsis/non-Hodgkin lymphoma 10/03/17-patient seen and examined, denies any acute event overnight. Currently afebrile. 10/04/17-patient seen and examined, no change in exam. Currently stable. Plts decreasing. 10/05/17-patient seen and examined, aching by mouth without any complication nausea and vomiting. Afebrile. Platelet count down to 17 10/06/17-patient seen and examined, no acute event overnight, stable. CBC pending this a.m. 10/07/17-patient seen and examined states Good appetite. Reported episode of dizziness yesterday while he was up and currently afebrile 10/08/17-patient seen and examined, no acute event overnight. Platelet up to 62. Wants to go home 10/09/17-patient seen and examined, awaiting for discharge home. Patient states he will be more active upon discharge home. Requesting a regular diet Objective Vitals Vital Signs Date Time Temp Pulse Resp B/P (MAP) Pulse Ox O2 Delivery O2 Flow Rate FiO2 10/09/17 06:19 77 16 128/74 (92) 100 10/09/17 04:14 72 10/09/17 02:04 80 16 121/91 (101) 100 10/09/17 00:09 79 10/08/17 22:09 98.5 68 18 125/77 (93) 100 10/08/17 22:00 Room Air 21 10/08/17 22:00 83 10/08/17 17:36 98.7 94 18 125/67 (86) 99 10/08/17 17:26 99 21 10/08/17 13:25 84 10/08/17 13:25 Room Air 10/08/17 12:01 98.1 75 22 124/82 (96) 100 I/O 10/08/17 10/08/17 10/08/17 10/09/17 10/09/17 10/09/17 07:00 15:00 23:00 07:00 15:00 23:00 Intake Total 360 ml 262.5 ml Output Total 1000 ml 2400 ml 1125 ml Balance -1000 ml -2040 ml -862.5 ml Intake Oral 360 ml IV Total 262.5 ml Output Urine Total 1000 ml 2400 ml 1125 ml # Bowel Movements 1 1 Result Diagram: 10/09/1728 10/09/1728 Imaging Last Impressions Chest X-Ray 09/18/17 0000 Signed Impressions: Service Date/Time: Monday, September 18, 2017 15:43 - CONCLUSION: 1. The left PICC line is in good position at the atrial junction. 2. Stable bilateral bibasilar airspace disease, left greater than right. 3. Probable trace left pleural effusion. Liang Peralta MD Upper Extremity Ultrasound 09/10/17 0000 Signed Impressions: Service Date/Time: August 13:56 - CONCLUSION: 1. Nonocclusive thrombus in the jugular vein. 2. The other vessels are patent. 3. Solid lobular mass in the supraclavicular region consistent with adenopathy in this patient with history of lymphoma. Goldy Suarez MD Port Line Revision 09/08/17 0000 Signed Impressions: Service Date/Time: Friday, September 08, 2017 00:00 - CONCLUSION: Uncomplicated port removal as above. Adama Briceño MD Chest CT 09/06/17 0000 Signed Impressions: Service Date/Time: Wednesday, September 06, 2017 15:57 - CONCLUSION: 1. Patchy bilateral air space consolidation in both lung bases. Differential diagnosis includes bronchopneumonia and aspiration. Small pleural effusions improved from April. 2. Extensive mediastinal adenopathy also improved from April. Travis Ruffin MD Objective Remarks GENERAL: NAD SKIN: Warm and dry. HEAD: Normocephalic. EYES: No scleral icterus. No injection or drainage. NECK: Supple, trachea midline. No JVD or lymphadenopathy. CARDIOVASCULAR: Regular rate and rhythm without murmurs, gallops, or rubs. RESPIRATORY: Breath sounds equal bilaterally. No accessory muscle use. GASTROINTESTINAL: Abdomen soft, non-tender, nondistended. MUSCULOSKELETAL: No cyanosis, or edema. BACK: Nontender without obvious deformity. No CVA tenderness. Procedures None. 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 difficile colitis ICD Code: A04.7 - Enterocolitis due to Clostridium difficile Status: Resolved (7) Sepsis ICD Code: A41.9 - Sepsis, unspecified organism (8) Debility ICD Code: R53.81 - Other malaise Status: Acute (9) Atrial fibrillation with RVR ICD Code: I48.91 - Unspecified atrial fibrillation (10) Sepsis due to methicillin resistant Staphylococcus aureus (MRSA) ICD Code: A41.02 - Sepsis due to Methicillin resistant Staphylococcus aureus Assessment and Plan 47 year-old man with 1. Sepsis, MRSA tricuspid valve endocarditis, MRSA bacteremia, bilateral pneumonia - Patient underwent Port removal 09/10. - 2-D echocardiogram with tricuspid valve vegetation -Continue with Vancomycin for 6 weeks through 10/26/17 Appreciate input from infectious disease specialist 2. C difficile diarrhea/colitis. - s/p Vancomycin PO 14 days total - Diarrhea resolved. 3. 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 Patient will get Neulasta as an outpatient. 4. Atrial fibrillation with rapid ventricular rate - Currently rate controlled Continue by mouth Cardizem. 5. Microcytic hypochromic anemia: - Improved Status post blood transfusion 6. Severe protein calorie malnutrition due to the colitis - Continue Marinol. Start regular diet 7. Hypokalemia - Replace electrolyte and monitor 8. Essential Hypertension: - Procardia xl 60 mg po daily 9. H/O PE, and nonocclusive thrombus in jugular vein - Had massive PE requiring tPA in April 2017. Continue Coumadin and monitor INR 10. Debility. - Continue PT 11. Thrombocytopenia Plts up to 62 10/08/17 Continue Coumadin DVT Prophylaxis: SCDs. Problem Qualifiers (1) Non-Hodgkin lymphoma: Qualified Codes: C83.38 - Diffuse large b-cell lymphoma, lymph nodes of multiple sites (2) Anemia: Qualified Codes: D64.9 - Anemia, unspecified (3) Sepsis: Qualified Codes: A41.02 - Sepsis due to methicillin resistant Staphylococcus aureus Tray Turner MD Oct 09, 2017 10:01
== END 2017-10-09 11:55 | disposition home health service (06) | DRG 871 ==
LOC: NEPC 09:13 → NEDA 13:04 → HCIN 18:57
PROVIDERS: ADMIT Hospitalist; ATTEND Hospitalist
PROC: 30233N1 Transfusion of Nonautologous Red Blood Cells into Peripheral Vein, Percutaneous Approach (ICD-10-PCS; principal; 2017-09-06)
PROC: 02PY33Z Removal of Infusion Device from Great Vessel, Percutaneous Approach (ICD-10-PCS; 2017-09-08)
PROC: 0JPT3WZ Removal of Totally Implantable Vascular Access Device from Trunk Subcutaneous Tissue and Fascia, Percutaneous Approach (ICD-10-PCS; 2017-09-08)
PROC: 3E03305 Introduction of Other Antineoplastic into Peripheral Vein, Percutaneous Approach (ICD-10-PCS; 2017-09-08)
DX: A41.02 Sepsis due to Methicillin resistant Staphylococcus aureus (principal); I33.0 Acute and subacute infective endocarditis; E43 Unspecified severe protein-calorie malnutrition; I47.2 Ventricular tachycardia; R64 Cachexia; J18.9 Pneumonia, unspecified organism; D69.6 Thrombocytopenia, unspecified; T80.211A Bloodstream infection due to central venous catheter, initial encounter; C83.30 Diffuse large B-cell lymphoma, unspecified site; A04.72 Enterocolitis due to Clostridium difficile, not specified as recurrent; I82.C19 Acute embolism and thrombosis of unspecified internal jugular vein; E87.6 Hypokalemia; I07.9 Rheumatic tricuspid valve disease, unspecified; E86.0 Dehydration; I48.0 Paroxysmal atrial fibrillation; I10 Essential (primary) hypertension; E83.42 Hypomagnesemia; D50.9 Iron deficiency anemia, unspecified; Z87.891 Personal history of nicotine dependence; Z86.711 Personal history of pulmonary embolism; R79.1 Abnormal coagulation profile; Z79.01 Long term (current) use of anticoagulants; T45.1X5A Adverse effect of antineoplastic and immunosuppressive drugs, initial encounter; Z86.718 Personal history of other venous thrombosis and embolism; I49.3 Ventricular premature depolarization
CPT/HCPCS: 36430; 36569; 36590; 71010; 71260; 76937; 80048; 80053; 80202; 81001; 82565; 82728; 83010; 83540; 83550; 83605; 83615; 83690; 83735; 84100; 84132; 84155; 84550; 85007; 85025; 85027; 85060; 85610; 86403; 86738; 86850; 86900; 86901; 86920; 87040; 87086; 87147; 87186; 87205; 87449; 87493; 93005; 93308; 93971; 96361; 96374; 99152; 99153; J0456; J0692; J1442; J1626; J1642; J1650; J1720; J1940; J1956; J2250; J2405; J3010; J3370; J3475; J3480; J7030; J7040; J7050; J7512; J9000; J9070; J9181; J9310; J9370; P9016; Q0163; Q0167; Q9967

== ENCOUNTER 2017-09-09 15:58 | Inpatient (IN) | payer MEDICAID ==
[~2017-09-09] VITALS: Ht 188 cm; Wt 52.3 kg
[2017-09-29] MEDS ORDERED: WHEEMIS3 (13:12)
[2017-09-29] MEDS ORDERED: EPIN1INJ21 SQ (15:51)
[2017-09-29] MEDS ORDERED: EPIN1INJ21 IV PUSH (15:51)
[2017-09-29] MEDS ORDERED: VANC10IN IV (15:51)
[2017-09-29] MEDS ORDERED: SOLU250I IV PUSH (15:51)
[2017-10-08] MEDS ORDERED: KLOR10TA PO (10:13)
[2017-10-08] MEDS ORDERED: COUM3TAB PO (10:13)
[2017-10-08] MEDS ORDERED: LACT PO (10:13)
[2017-10-08] MEDS ORDERED: DRON2.5 PO (10:13)
[2017-10-08] MEDS ORDERED: DILT31TA PO (10:13)
[2017-10-08] MEDS ORDERED: MAGN400T2 PO (10:13)
[2017-10-08] MEDS ORDERED: NIFE60TA8 PO (10:13)
[2017-11-10] VITALS (12 sets, daily range): BP systolic 138–157; BP diastolic 75–106; PULSE 36–69; RESP 17–18; TEMP 97.4–98.7; O2SAT 99–100
[2017-11-10 11:47] LABS: AUTOMATED NEUTROPHIL # 4.8 TH/MM3 (1.8-7.7); BASOPHIL # 0.1 TH/MM3 (0-0.2); BASOPHIL % 0.9 % (0.0-2.0); EOSINOPHIL # 0.1 TH/MM3 (0-0.4); EOSINOPHIL % 2.1 % (0.0-4.0); HEMATOCRIT 25.4 % (39.0-51.0); HEMOGLOBIN 8.5 GM/DL (13.0-17.0); LYMPHOCYTE # 0.8 TH/MM3 (1.0-4.8); MEAN CELL VOLUME 83.1 FL (80.0-100.0); MEAN CORPUSCULAR HEMOGLOBIN 27.7 PG (27.0-34.0); MEAN CORPUSCULAR HGB CONC 33.4 % (32.0-36.0); MEAN PLATELET VOLUME 7.4 FL (7.0-11.0); MONO % 3.7 % (0.0-8.0); MONOCYTE # 0.2 TH/MM3 (0-0.9); NEUT % 80.3 % (16.0-70.0); PLATELET COUNT 337 TH/MM3 (150-450); RED BLOOD COUNT 3.06 MIL/MM3 (4.50-5.90); RED CELL DISTRIBUTION WIDTH 17.3 % (11.6-17.2)
[2017-11-10 12:04] LABS: ALBUMIN 2.8 GM/DL (3.4-5.0); BICARBONATE 27.2 MEQ/L (21.0-32.0); BLOOD UREA NITROGEN 20 MG/DL (7-18); CALCIUM 9.2 MG/DL (8.5-10.1); CHLORIDE 107 MEQ/L (98-107); CREATININE 1.09 MG/DL (0.60-1.30); GLOMERULAR FILTRATION RATE 87 ML/MIN (>89); GLUCOSE,RANDOM 68 MG/DL (74-106); MAGNESIUM 1.6 MG/DL (1.5-2.5); SODIUM (NA) 141 MEQ/L (136-145)
[2017-11-10 12:05] LABS: ALT (GPT) 8 U/L (12-78); AST (GOT) 4 U/L (15-37); PHOSPHORUS 3.9 MG/DL (2.5-4.9)
[2017-11-10 12:07] LABS: ALKALINE PHOSPHATASE 102 U/L (45-117); TOTAL BILIRUBIN ADULT 0.1 MG/DL (0.2-1.0)
[2017-11-10] MEDS ORDERED: ONDANSETRON HCL 4 MG/2 ML VIAL IV PUSH PRN (13:00)
[2017-11-10] MEDS ORDERED: SODIUM CHLORIDE 0.9% FLUSH 10 ML FLUSH IV FLUSH PRN (14:15)
--- NOTE | 2017-11-10 14:48 | RADRPT ---
EXAM DATE/TIME: 11/10/2017 14:12 [facility] COMPARISON: CHEST SINGLE AP, September 18, 2017, 15:43. INDICATIONS : Post picc line placement. MEDICAL HISTORY : Venous insufficiency. Hypertension. A-Fib PE Nonhodgkins lymphoma SURGICAL HISTORY : None. ENCOUNTER: Initial ACUITY: 1 day PAIN SCORE: 0/10 LOCATION: Bilateral chest FINDINGS: A single view of the chest demonstrates minimal bibasilar subsegmental atelectasis. Right-sided PICC line with tip at the cavoatrial junction. The cardiomediastinal contours are unremarkable. Osseous structures are intact. CONCLUSION: Bibasilar atelectasis. Adequate placement of right-sided PICC line. Tray Patel MD on November 10, 2017 at 14:43 Board Certified Radiologist. This report was verified electronically.
[2017-11-10] MEDS ORDERED: ACETAMINOPHEN 325 MG TAB PO ONE (15:30)
[2017-11-10] MEDS ORDERED: diphenhydrAMINE HCL 50 MG CAP PO ONE (15:30)
[2017-11-10] MEDS ORDERED: SODIUM CHLORID 0.9% IV ONE (16:00)
[2017-11-10] MEDS ORDERED: RITUXIMAB IV ONE (16:00)
[2017-11-10] MEDS: POTASSIUM CHLORIDE 10 MEQ CONTROLLED RELEASE TAB PO SCH (16:27)
[2017-11-10] MEDS: SODIUM CHLOR 0.9% 1000 ML INJ 1,000 ML IV SCH (16:27)
[2017-11-10] MEDS ORDERED: ENALAPRILAT 1.25 MG/ML VIAL IV PUSH PRN (17:15)
[2017-11-10 17:22] LABS: INTERNATIONAL NORMALIZED RATIO 1.6 RATIO; PROTHROMBIN TIME - PATIENT 15.8 SEC (9.8-11.6)
--- NOTE | 2017-11-10 18:10 | MH ---
cc: SHADY MAYORGA MD DATE OF ADMISSION 11/10/2017 ADMISSION DIAGNOSIS High-risk lymphoma admitted for chemotherapy. HISTORY OF PRESENT ILLNESS The patient is a 47-year-old male diagnosed with high-risk non-Hodgkin B-cell lymphoma with triple HIT in April 2017. He had extensive mediastinal, cervical, bilateral and axillary adenopathy. He also had extensive mesenteric and retroperitoneal adenopathy. Excisional biopsy of left axillary lymph node showed diffuse large B-cell lymphoma triple HIT. He had one cycle of Rituxan and CHOP at reduced dose, but at that time he had sepsis and renal failure on dialysis. He recovered from the sepsis. He was then started on Rituxan and epoch. He has now completed five cycles of Rituxan epoch. He, however, was admitted recently into the hospital with sepsis again and he was found to have endocarditis. He also had an infected port. The port was removed. He just completed antibiotics. He has recovered well. His performance status has improved. His last PET scan showed residual adenopathy in the subcarinal and paratracheal area, but there is no uptake in the supraclavicular, axillary or retroperitoneum. His performance status has improved. Plan is to admit him to the hospital for another cycle of chemotherapy. He has been reluctant to consider bone marrow transplant. PAST MEDICAL HISTORY 1. High-grade lymphoma 2. Hypertension 3. Pulmonary embolism. 4. Renal failure which has resolved. 5. Bacterial endocarditis 6. Infected port PAST SURGICAL HISTORY 1. Bone marrow aspirate and biopsy. 2. Left axillary lymph node dissection, port placement and subsequent removal 3. Dialysis catheter placement and removal. FAMILY HISTORY He has five brothers and three sisters, all healthy. SOCIAL HISTORY He has stop smoking a few months ago. He also stopped drinking. He lives with his mother. ALLERGIES No known drug allergy. MEDICATIONS Outpatient 1. Protonix. 2. Coumadin 3. Nifedipine 4. Cardizem REVIEW OF SYSTEMS CONSTITUTIONAL: He is feeling stronger. EYES: Negative. ENT: Negative. CARDIOVASCULAR: Denied chest pressure, palpitation RESPIRATORY: Denied shortness of breath or cough. GI: Denies nausea, vomiting, diarrhea or abdominal pain. : Denied dysuria or hematuria. MUSCULOSKELETAL: Negative. HEMATOLOGY: As above. ENDOCRINE: Negative. DERMATOLOGY: Negative. PSYCHIATRIC: Negative. NEUROLOGIC: Negative. PHYSICAL EXAMINATION VITAL SIGNS: Temperature 98.3, blood pressure 157/106. GENERAL: He is alert and oriented x3 in no acute distress. HEENT: Atraumatic, normocephalic. Pupils equal, round and reactive to light. Extraocular muscles intact. No scleral icterus. Oropharynx - dry mucosa. No lesion, no thrush. NECK: No thyromegaly. No palpable mass. LYMPHATIC: There is still a palpable nodule in the right supraclavicular area. There is still a nodule in the left axillary area. Otherwise, no other palpable adenopathy. CARDIOVASCULAR: Regular S1, S2 no murmur. LUNGS: Clear to auscultation bilaterally. ABDOMEN: Soft, nontender. I Could not palpate liver or spleen. EXTREMITIES: No cyanosis, clubbing or edema. No calf tenderness. BACK: No paravertebral tenderness. SKIN: No rash or petechiae. NEUROLOGIC: Nonfocal. LABORATORY DATA Dated 11/10/17 was reviewed. ASSESSMENT 1. 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 He had diffuse adenopathy in bilateral axilla, supraclavicular area, mediastinal and retroperitoneum. Bone marrow was not involved. Clinically stage III. He has now completed five cycles of Rituxan and Epoch chemotherapy. He tolerated it very well. His last PET scan showed residual adenopathy in subcarinal and paratracheal area, but there was no uptake in the supraclavicular, axillary or retroperitoneum. He has a partial response. He still does not want to consider bone marrow transplant consolidation. His chemotherapy was delayed due to his recent diagnosis of sepsis and bacterial endocarditis. He has now completed antibiotic for bacterial endocarditis. His performance status has improved. He was admitted to have another cycle of Rituxan and epoch. The patient has no venous access at this point. We will place a PICC line and then start chemotherapy protocol. 2. Recent diagnosis of bacterial endocarditis. He has completed vancomycin October 26. 3. Recent sepsis due to port infection. The port had been removed. 4. History of pulmonary embolism. He is on Coumadin. We have been titrating the Coumadin. He has no pulmonary symptom at this time. He also has no lower extremity edema. 5. Anorexia, has improved. He had gained weight. 6. History of pleural effusion which has not recurred. 7. History of renal failure which has resolved. 8. Hypertension. Continue his home medication. PLAN 1. Consult radiology for PICC line placement. 2. Check blood work. 3. Start Rituxan and EPOCH protocol. Chemotherapy ordered. 4. Monitor labs. MD MELA Balbuena/ /5:07 PM /5:32 PM RAVINDRA
[2017-11-10] MEDS: WARFARIN SOD 4 MG TAB PO SCH (19:08)
[2017-11-10] MEDS: DRONABINOL 2.5 MG CAP PO SCH (19:08)
[2017-11-11] VITALS (21 sets, daily range): BP systolic 122–168; BP diastolic 68–110; PULSE 41–84; RESP 16–20; TEMP 97.7–98.9; O2SAT 97–100
[2017-11-11] MEDS: SODIUM CHLOR 0.9% 1000 ML INJ 1,000 ML IV SCH ×3 (00:45→17:32)
[2017-11-11 06:59] LABS: AUTOMATED NEUTROPHIL # 5.9 TH/MM3 (1.8-7.7); BASOPHIL # 0.1 TH/MM3 (0-0.2); BASOPHIL % 0.9 % (0.0-2.0); EOSINOPHIL # 0.1 TH/MM3 (0-0.4); EOSINOPHIL % 1.9 % (0.0-4.0); HEMATOCRIT 22.8 % (39.0-51.0); HEMOGLOBIN 7.6 GM/DL (13.0-17.0); LYMPH % 8.8 % (9.0-44.0); LYMPHOCYTE # 0.6 TH/MM3 (1.0-4.8); MEAN CELL VOLUME 83.7 FL (80.0-100.0); MEAN CORPUSCULAR HEMOGLOBIN 27.8 PG (27.0-34.0); MEAN CORPUSCULAR HGB CONC 33.2 % (32.0-36.0); MEAN PLATELET VOLUME 7.5 FL (7.0-11.0); MONO % 4.6 % (0.0-8.0); MONOCYTE # 0.3 TH/MM3 (0-0.9); NEUT % 83.8 % (16.0-70.0); PLATELET COUNT 275 TH/MM3 (150-450); RED BLOOD COUNT 2.73 MIL/MM3 (4.50-5.90); RED CELL DISTRIBUTION WIDTH 17.6 % (11.6-17.2); WHITE BLOOD COUNT 7.1 TH/MM3 (4.0-11.0)
[2017-11-11 07:04] LABS: INTERNATIONAL NORMALIZED RATIO 1.8 RATIO; PROTHROMBIN TIME - PATIENT 18.6 SEC (9.8-11.6)
[2017-11-11 07:11] LABS: BICARBONATE 23.4 MEQ/L (21.0-32.0); CALCIUM 8.3 MG/DL (8.5-10.1); CREATININE 1.2 MG/DL (0.60-1.30)
[2017-11-11] MEDS ORDERED: PANTOPRAZOLE SOD 20 MG DELAYED RELEASE TAB PO SCH (09:00)
--- NOTE | 2017-11-11 09:30 | EKG ---
Date Performed: 11/10/2017 Time Performed: 15:48:56 PTAGE: 47 years EKG: Sinus rhythm BORDERLINE ECG PREVIOUS TRACING : 09/21/2017 20.52 Compared to the prior study, atrial fibrillation with rapid ventricular response and ventricular tachycardia have resolved. DOCTOR: Jadon Zuniga Interpretating Date/Time 11/11/2017 09:28:35
[2017-11-11] MEDS: PANTOPRAZOLE SOD 40 MG DELAYED RELEASE TAB PO SCH (09:44)
[2017-11-11] MEDS: POTASSIUM CHLORIDE 10 MEQ CONTROLLED RELEASE TAB PO SCH (09:44)
[2017-11-11] MEDS: NIFEdipine 90 MG SUSTAINED RELEASE TAB PO SCH (09:44)
[2017-11-11] MEDS: SODIUM CHLORIDE 0.9% FLUSH 10 ML FLUSH IV FLUSH SCH (09:45)
[2017-11-11] MEDS ORDERED: predniSONE 50 MG TAB PO SCH (10:00)
[2017-11-11] MEDS ORDERED: predniSONE 1 MG TAB PO SCH (10:00)
[2017-11-11] MEDS: predniSONE 50 MG TAB PO SCH ×2 (12:08→22:19)
[2017-11-11] MEDS: DRONABINOL 2.5 MG CAP PO SCH ×2 (12:09→16:53)
[2017-11-11] MEDS: predniSONE 1 MG TAB PO SCH ×2 (14:39→22:19)
--- NOTE | 2017-11-11 15:01 | PD.ONC.PN ---
Subjective Subjective Remarks Tolerated Rituxan. No CP/SOB. No N/V. Objective Data Date Time Temp Pulse Resp B/P (MAP) Pulse Ox O2 Delivery O2 Flow Rate FiO2 11/11/17 12:05 98.6 64 158/102 (120) 99 11/11/17 12:00 65 11/11/17 10:58 61 11/11/17 09:42 98.5 79 20 168/101 (123) 97 11/11/17 08:00 59 11/11/17 06:00 64 11/11/17 05:29 98.9 66 18 154/96 (115) 100 11/11/17 05:00 66 11/11/17 04:09 62 11/11/17 03:00 60 11/11/17 02:38 65 162/99 (120) 11/11/17 02:00 56 11/11/17 01:00 60 11/11/17 00:47 98.4 60 16 163/110 (127) 100 11/10/17 23:58 66 11/10/17 23:00 68 11/10/17 22:31 98.6 67 17 157/97 (117) 100 11/10/17 22:00 66 11/10/17 21:37 98.3 69 18 146/87 (106) 100 11/10/17 21:14 98.7 69 18 150/89 (109) 100 11/10/17 21:12 18 11/10/17 21:00 66 11/10/17 20:12 67 11/10/17 19:00 98.3 67 18 138/87 (104) 100 11/10/17 16:28 98.3 62 157/106 (123) 11/11/17 11/11/17 11/11/17 07:00 15:00 23:00 Output Total 400 ml Balance -400 ml Result Diagram: 11/11/17 0535 11/11/17 0535 Laboratory Results Laboratory Tests Test 11/10/17 16:31 11/11/17 05:35 Prothrombin Time 15.8 SEC 18.6 SEC Prothromb Time International Ratio 1.6 RATIO 1.8 RATIO Activated Partial Thromboplast Time 33.7 SEC White Blood Count 7.1 TH/MM3 Red Blood Count 2.73 MIL/MM3 Hemoglobin 7.6 GM/DL Hematocrit 22.8 % Mean Corpuscular Volume 83.7 FL Mean Corpuscular Hemoglobin 27.8 PG Mean Corpuscular Hemoglobin Concent 33.2 % Red Cell Distribution Width 17.6 % Platelet Count 275 TH/MM3 Mean Platelet Volume 7.5 FL Neutrophils (%) (Auto) 83.8 % Lymphocytes (%) (Auto) 8.8 % Monocytes (%) (Auto) 4.6 % Eosinophils (%) (Auto) 1.9 % Basophils (%) (Auto) 0.9 % Neutrophils # (Auto) 5.9 TH/MM3 Lymphocytes # (Auto) 0.6 TH/MM3 Monocytes # (Auto) 0.3 TH/MM3 Eosinophils # (Auto) 0.1 TH/MM3 Basophils # (Auto) 0.1 TH/MM3 CBC Comment DIFF FINAL Differential Comment Blood Urea Nitrogen 17 MG/DL Creatinine 1.20 MG/DL Random Glucose 80 MG/DL Calcium Level 8.3 MG/DL Sodium Level 140 MEQ/L Potassium Level 3.4 MEQ/L Chloride Level 109 MEQ/L Carbon Dioxide Level 23.4 MEQ/L Anion Gap 8 MEQ/L Estimat Glomerular Filtration Rate 78 ML/MIN Administered Medications Medications (Trade) Dose Ordered Sig/Shyla Route PRN Reason Start Time Stop Time Status Last Admin Dose Admin Potassium Chloride (KCl) 40 meq DAILY PO 11/10/17 13:00 11/11/17 09:44 Sodium Chloride (NS Flush) See Protocol DAILY IV FLUSH 11/11/17 09:00 11/11/17 09:45 Heparin Sodium (Porcine) (Heparin Central Flush) See Protocol DAILY IV FLUSH 11/11/17 09:00 11/11/17 09:44 Sodium Chloride 1,000 ml @ 100 mls/hr Q10H IV 11/10/17 14:45 11/11/17 05:27 Nifedipine (Procardia Xl) 90 mg DAILY PO 11/11/17 09:00 11/11/17 09:44 Warfarin Sodium (Coumadin) 4 mg DAILY@16 PO 11/10/17 18:00 11/10/17 19:08 Pantoprazole Sodium (Protonix) 40 mg DAILY PO 11/11/17 09:00 11/11/17 09:44 Dronabinol (Marinol) 2.5 mg BID@11,16 PO 11/10/17 16:00 11/11/17 12:09 Prednisone (Deltasone) 100 mg Q12H PO 11/11/17 10:00 11/15/17 22:01 11/11/17 12:08 Prednisone (Deltasone) 3 mg Q12H PO 11/11/17 10:00 11/15/17 22:01 11/11/17 14:39 Objective Remarks GENERAL: Well-nourished, well-developed patient. SKIN: Warm and dry. HEAD: Normocephalic. EYES: No scleral icterus. No injection or drainage. NECK: Supple, trachea midline. No JVD. Right supraclav LN stable. LYMPHATIC: No adenopathy. CARDIOVASCULAR: Regular rate and rhythm without murmurs. RESPIRATORY: Breath sounds equal bilaterally. No accessory muscle use. GASTROINTESTINAL: Abdomen soft, non-tender, nondistended. EXTREMITIES: No cyanosis, or edema. Left arm PICC MUSCULOSKELETAL: Adequate muscle tone. NEUROLOGICAL: No obvious focal deficit. Awake, alert, and oriented x3. PSYCHIATRIC: Appropriate mood and affect; insight and judgment normal. Assessment/Plan Assessment 1. 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 He had diffuse adenopathy in bilateral axilla, supraclavicular area, mediastinal and retroperitoneum. Bone marrow was not involved. Clinically stage III. He has now completed five cycles of Rituxan and Epoch chemotherapy. He tolerated it very well. His last PET scan showed residual adenopathy in subcarinal and paratracheal area, but there was no uptake in the supraclavicular, axillary or retroperitoneum. He has a partial response. He still does not want to consider bone marrow transplant consolidation. His chemotherapy was delayed due to his recent diagnosis of sepsis and bacterial endocarditis. He has now completed antibiotic for bacterial endocarditis. His performance status has improved. He was admitted to have another cycle of Rituxan and epoch. 11/11 Completed Rituxan and tolerated well. Start EPOCH once we have the ECHO. 2. Recent diagnosis of bacterial endocarditis. He has completed vancomycin October 26. 3. Recent sepsis due to port infection. The port had been removed. 4. History of pulmonary embolism. He is on Coumadin. We have been titrating the Coumadin. He has no pulmonary symptom at this time. He also has no lower extremity edema. Plan PLAN 1. Start EPOCH once we have the ECHO. 2. Monitor labs. Ruslan Connelly MD 31, 2018 15:01
[2017-11-11] MEDS ORDERED: DEXAMETHASONE INJ 20 MG in SODIUM CHLORIDE 0.9% INJ 50 ML IV SCH (15:30)
[2017-11-11] MEDS ORDERED: GRANISETRON HCL 1 MG/ML VIAL IV SCH (15:30)
[2017-11-11] MEDS ORDERED: VINCRISTINE IV SCH (16:00)
[2017-11-11] MEDS ORDERED: ETOPOSIDE IV SCH (16:00)
[2017-11-11] MEDS ORDERED: DOXORUBICIN IV SCH (16:00)
[2017-11-11] MEDS ORDERED: [UNRECOGNIZED DRUG - OTHER] IV SCH (16:00)
[2017-11-11] MEDS: WARFARIN SOD 4 MG TAB PO SCH (16:53)
--- NOTE | 2017-11-11 17:11 | ECHRPT ---
Indication: EF assessment of CHF CONCLUSIONS Limited echo. Mildly dilated left ventricle. Mild to moderate concentric left ventricular hypertrophy. The left ventricular systolic function is severely reduced with an estimated ejection fraction of 25%. Global hypokinesis. There is a small pericardial effusion present. No tamponade physiology is evident. BP: / HR: 66 Rhythm: Other MEASUREMENTS (Male / Female) Normal Values Technical Quality:Good 2D ECHO LV Diastolic Diameter PLAX 5.3 cm 4.2 - 5.9 / 3.9 - 5.3 cm LV Systolic Diameter PLAX 4.6 cm IVS Diastolic Thickness 1.3 cm 0.6 - 1.0 / 0.6 - 0.9 cm LVPW Diastolic Thickness 1.4 cm 0.6 - 1.0 / 0.6 - 0.9 cm LV Relative Wall Thickness 0.5 FINDINGS LEFT VENTRICLE Mildly dilated left ventricle. Mild to moderate concentric left ventricular hypertrophy. The left ventricular systolic function is severely reduced with an estimated ejection fraction of 25%. Global hypokinesis. RIGHT VENTRICLE Normal right ventricular size and systolic function. LEFT ATRIUM The left atrial size is mildly dilated. RIGHT ATRIUM The right atrial size is normal. ATRIAL SEPTUM Normal atrial septal thickness without atrial level shunting by limited color doppler interrogation. MITRAL VALVE Structurally normal mitral valve. AORTIC VALVE Trileaflet aortic valve. TRICUSPID VALVE Structurally normal tricuspid valve. PULMONARY VALVE The pulmonary valve is not well visualized. PERICARDIUM There is a small pericardial effusion present. No tamponade physiology is evident. Steven Dumont MD (Electronically Signed) Final Date:11 November 2017 17:10
[2017-11-11] MEDS: DILTIAZEM HCL 30 MG TAB PO SCH (22:19)
[2017-11-12] VITALS (7 sets, daily range): BP systolic 129–154; BP diastolic 68–88; PULSE 70–85; RESP 15–16; TEMP 97.7–98.3; O2SAT 100
[2017-11-12] MEDS: SODIUM CHLOR 0.9% 1000 ML INJ 1,000 ML IV SCH (05:04)
[2017-11-12] MEDS: DILTIAZEM HCL 30 MG TAB PO SCH ×2 (05:13→11:47)
[2017-11-12 06:21] LABS: AUTOMATED NEUTROPHIL # 3.6 TH/MM3 (1.8-7.7); BASOPHIL % 0.1 % (0.0-2.0); HEMOGLOBIN 9.4 GM/DL (13.0-17.0); LYMPH % 8.2 % (9.0-44.0); LYMPHOCYTE # 0.3 TH/MM3 (1.0-4.8); MEAN CELL VOLUME 83.4 FL (80.0-100.0); MEAN CORPUSCULAR HGB CONC 33.6 % (32.0-36.0); MEAN PLATELET VOLUME 7.6 FL (7.0-11.0); MONO % 0.8 % (0.0-8.0); NEUT % 90.9 % (16.0-70.0); PLATELET COUNT 361 TH/MM3 (150-450); RED BLOOD COUNT 3.36 MIL/MM3 (4.50-5.90); RED CELL DISTRIBUTION WIDTH 17.5 % (11.6-17.2)
[2017-11-12 06:44] LABS: INTERNATIONAL NORMALIZED RATIO 2.6 RATIO; PROTHROMBIN TIME - PATIENT 25.8 SEC (9.8-11.6)
[2017-11-12 06:51] LABS: BICARBONATE 22.7 MEQ/L (21.0-32.0); CALCIUM 9.4 MG/DL (8.5-10.1); CREATININE 1.03 MG/DL (0.60-1.30)
[2017-11-12] MEDS: PANTOPRAZOLE SOD 40 MG DELAYED RELEASE TAB PO SCH (08:40)
[2017-11-12] MEDS: SODIUM CHLORIDE 0.9% FLUSH 10 ML FLUSH IV FLUSH SCH (08:40)
[2017-11-12] MEDS: NIFEdipine 90 MG SUSTAINED RELEASE TAB PO SCH (08:40)
[2017-11-12] MEDS: POTASSIUM CHLORIDE 10 MEQ CONTROLLED RELEASE TAB PO SCH (08:41)
--- NOTE | 2017-11-12 11:37 | PD.ONC.PN ---
Subjective Subjective Remarks Afebrile overnight. Patient resting in bed in nad. EF came back at 25%. Awaiting cardiology consult. Chemotherapy on hold. Patient is in good spirits and has no complaints. Objective Data Date Time Temp Pulse Resp B/P (MAP) Pulse Ox O2 Delivery O2 Flow Rate FiO2 11/12/17 08:00 97.8 75 16 129/68 (88) 100 11/12/17 05:14 98.2 82 15 149/88 (108) 100 11/12/17 02:00 76 11/12/17 01:00 82 11/12/17 00:27 98.3 79 16 132/71 (91) 100 11/12/17 00:07 85 11/11/17 23:00 80 11/11/17 22:00 84 11/11/17 21:00 82 11/11/17 20:17 98.4 82 17 125/84 (98) 100 11/11/17 19:53 83 11/11/17 17:00 84 11/11/17 16:49 97.7 41 20 122/68 (86) 99 11/11/17 12:05 98.6 64 158/102 (120) 99 11/11/17 12:00 65 11/12/17 11/12/17 11/12/17 06:59 14:59 22:59 Intake Total 600 ml Output Total 400 ml Balance 200 ml Result Diagram: 11/12/1718 11/12/17517 Laboratory Results Laboratory Tests Test 11/12/17 05:18 White Blood Count 4.0 TH/MM3 Red Blood Count 3.36 MIL/MM3 Hemoglobin 9.4 GM/DL Hematocrit 28.0 % Mean Corpuscular Volume 83.4 FL Mean Corpuscular Hemoglobin 28.0 PG Mean Corpuscular Hemoglobin Concent 33.6 % Red Cell Distribution Width 17.5 % Platelet Count 361 TH/MM3 Mean Platelet Volume 7.6 FL Neutrophils (%) (Auto) 90.9 % Lymphocytes (%) (Auto) 8.2 % Monocytes (%) (Auto) 0.8 % Eosinophils (%) (Auto) 0.0 % Basophils (%) (Auto) 0.1 % Neutrophils # (Auto) 3.6 TH/MM3 Lymphocytes # (Auto) 0.3 TH/MM3 Monocytes # (Auto) 0.0 TH/MM3 Eosinophils # (Auto) 0.0 TH/MM3 Basophils # (Auto) 0.0 TH/MM3 CBC Comment DIFF FINAL Differential Comment Prothrombin Time 25.8 SEC Prothromb Time International Ratio 2.6 RATIO Blood Urea Nitrogen 14 MG/DL Creatinine 1.03 MG/DL Random Glucose 127 MG/DL Calcium Level 9.4 MG/DL Sodium Level 139 MEQ/L Potassium Level 3.9 MEQ/L Chloride Level 108 MEQ/L Carbon Dioxide Level 22.7 MEQ/L Anion Gap 8 MEQ/L Estimat Glomerular Filtration Rate 93 ML/MIN Administered Medications Medications (Trade) Dose Ordered Sig/Shyla Route PRN Reason Start Time Stop Time Status Last Admin Dose Admin Potassium Chloride (KCl) 40 meq DAILY PO 11/10/17 13:00 11/12/17 08:41 Sodium Chloride (NS Flush) See Protocol DAILY IV FLUSH 11/11/17 09:00 11/12/17 08:40 Heparin Sodium (Porcine) (Heparin Central Flush) See Protocol DAILY IV FLUSH 11/11/17 09:00 11/12/17 08:40 Sodium Chloride 1,000 ml @ 100 mls/hr Q10H IV 11/10/17 14:45 11/12/17 05:04 Nifedipine (Procardia Xl) 90 mg DAILY PO 11/11/17 09:00 11/12/17 08:40 Warfarin Sodium (Coumadin) 4 mg DAILY@16 PO 11/10/17 18:00 11/11/17 16:53 Pantoprazole Sodium (Protonix) 40 mg DAILY PO 11/11/17 09:00 11/12/17 08:40 Dronabinol (Marinol) 2.5 mg BID@11,16 PO 11/10/17 16:00 11/11/17 16:53 Prednisone (Deltasone) 100 mg Q12H PO 11/11/17 10:00 Future Hold 11/11/17 22:19 Prednisone (Deltasone) 3 mg Q12H PO 11/11/17 10:00 Future Hold 11/11/17 22:19 Diltiazem HCl (Cardizem) 30 mg Q6HR PO 11/12/17 00:00 11/12/17 05:13 Objective Remarks GENERAL: Pleasant young man, sitting up in bed eating in nad. SKIN: Warm and dry. HEAD: Normocephalic. EYES: No scleral icterus. No injection or drainage. NECK: Supple, trachea midline. CARDIOVASCULAR: Regular rate and rhythm RESPIRATORY: Breath sounds equal bilaterally. No accessory muscle use. GASTROINTESTINAL: Abdomen soft, non-tender, nondistended. EXTREMITIES: No cyanosis NEUROLOGICAL: awake and alert, normal speech. Assessment/Plan Assessment 1. 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 He had diffuse adenopathy in bilateral axilla, supraclavicular area, mediastinal and retroperitoneum. Bone marrow was not involved. Clinically stage III. He has now completed five cycles of Rituxan and Epoch chemotherapy. He tolerated it very well. His last PET scan showed residual adenopathy in subcarinal and paratracheal area, but there was no uptake in the supraclavicular, axillary or retroperitoneum. He has a partial response. He still does not want to consider bone marrow transplant consolidation. His chemotherapy was delayed due to his recent diagnosis of sepsis and bacterial endocarditis. He has now completed antibiotic for bacterial endocarditis. His performance status has improved. He was admitted to have another cycle of Rituxan and epoch. 11/11 Completed Rituxan and tolerated well. Start EPOCH once we have the ECHO. 11/12: ECHO came back showing EF of 25%. will consult cardiology. may need to change chemotherapy regimen. 2. Recent diagnosis of bacterial endocarditis. He has completed vancomycin October 26. 3. Recent sepsis due to port infection. The port had been removed. 4. History of pulmonary embolism. He is on Coumadin. We have been titrating the Coumadin. He has no pulmonary symptom at this time. He also has no lower extremity edema. Plan 1. consult cardiology 2. hold chemotherapy. UPDATE: Cardiology note reviewed, and I called and discussed with Dr. Gonzales who recommended outpatient follow up with Dr. Ren Stack, starting Lopressor and Lisinopril and stopping Cardizem and Norvasc. I called and made appointments for patient for follow up with Cardiology, Dr. Stack on November 19 at 1PM and to follow up with Dr. Connelly Thursday at 8: 30AM. Attending Statement The exam, history, and the medical decision-making described in the above note were completed with the assistance of the mid-level provider. I reviewed and agree with the findings presented. I attest that I had a [id number] encounter with the patient on the same day, and personally performed and documented my assessment and findings in the medical record. [facility] ([place], [place]) staff report pt has bigeminy. Pt denies CP/SOB. Rate controlled. ECHO showed EF of 25 % which is new. Will consult cardiology. May have to change chemo regimen given the new cardiomyopathy. Hold chemo for now until evaluated by cardiology. Brenda Platt Nov 12, 2017 11:37 Ruslan Connelly MD Nov 12, 2017 14:55
[2017-11-12] MEDS: DRONABINOL 2.5 MG CAP PO SCH (11:47)
--- NOTE | 2017-11-12 13:11 | MB ---
cc: JELANI JO DATE OF CONSULTATION: 11/12/2017 INDICATION Cardiomyopathy. HISTORY OF PRESENT ILLNESS This is a very nice 47-year-old gentleman. He is diagnosed with high-risk non-Hodgkin's B cell lymphoma with triple therapy HIT in April 2017. He has had extensive adenopathy with excisional biopsy. He was admitted for another cycle of chemotherapy. He denies any chest pain, shortness of breath or palpitations. He was noted to have frequent premature ventricular complexes on telemetry. He had very recently been seen for subsequent hospitalization in September by Dr. Azul. At that time he was consulted for atrial fibrillation with rapid ventricular rate and mild cardiomyopathy with an ejection fraction of 45-50%. Also apparently there were short runs of nonsustained ventricular tachycardia. He chemically converted, was initiated on calcium channel sharon without any outpatient follow-up. Echocardiogram now done on November 11, 2017 reveals severely reduced left ventricular systolic function 25%. There is a small pericardial effusion but no significant valvular abnormalities. This is in comparison to prior echo on September 12 which showed EF of 45-50% with a questionable vegetation on the tricuspid valve. At that time he had recent sepsis with a port infection which was removed. He was found to have diagnosis of bacterial endocarditis and completed vancomycin therapy through October 26. PAST MEDICAL HISTORY 1. High grade lymphoma. 2. Hypertension. 3. Pulmonary embolism. 4. Renal failure. 5. Bacterial endocarditis. 6. Infected port. 7. Cardiomyopathy. 8. Nonsustained ventricular tachycardia and atrial fibrillation. FAMILY HISTORY Denies any family history of early coronary artery disease, sudden cardiac . SOCIAL HISTORY He stopped smoking a few months ago. No alcohol. Denies drug use. ALLERGIES NO KNOWN DRUG ALLERGIES. OUTPATIENT MEDICATIONS 1. Protonix. 2. Coumadin. 3. Nifedipine. 4. Cardizem. REVIEW OF SYSTEMS 12-point review of systems was performed and negative unless otherwise noted in the history of present illness. PHYSICAL EXAMINATION VITAL SIGNS: Temperature 97, pulse 78, blood pressure 154/87 mmHg. GENERAL: Alert and oriented x3, in no acute distress. HEENT: Pupils reactive to light and accommodation. Extraocular movements are intact. NECK: No elevation in jugular venous distention. No thyromegaly or lymphadenopathy. No carotid bruits. LUNGS: Clear to auscultation bilaterally. CARDIOVASCULAR: Regular rate and rhythm with frequent ectopy, no rubs or gallops, no murmurs. ABDOMEN: Nontender, nondistended. Good bowel sounds. No hepatosplenomegaly. EXTREMITIES: Show no clubbing, cyanosis or edema. Good peripheral pulses. Cranial nerves intact. Motor, sensory grossly intact. LABORATORY DATA Hemoglobin is 9.4, platelet count 361, INR is 2.6, sodium 138, potassium 3.9, BUN 14, creatinine 1.03. ASSESSMENT 1. Newly diagnosed cardiomyopathy with ejection fraction 25%. 2. History of recent bacterial endocarditis and atrial fibrillation, nonsustained ventricular tachycardia, frequent premature ventricular complexes. PLAN 1. This is rather complicated case, from a cardiovascular perspective, there is no comment as to endocarditis being noted on the tricuspid valve, and further he is not septic. Hopefully, that has been adequately treated and resolved. Ejection fraction now significantly reduced compared to prior. I suspect this is nonischemic. Now whether this was rate related cardiomyopathy versus chemotherapy induced is not entirely clear but the patient is not in atrial fibrillation now. Obviously, if there are better noncardiotoxic chemotherapy regimens, that would be preferred. He actually is fairly well-compensated for his ejection fraction but will monitor ins and outs closely and for now will need diuretic. I am going to stop his nifedipine and start him on a low dose MARLO inhibitor. 2. Frequent premature ventricular complexes. He has a history of atrial fibrillation and a history of nonsustained VT, now showing frequent PVCs but no runs of sustained ventricular arrhythmia. I am going to switch his Diltiazem to beta sharon. No plans for any stress testing since I do not think he is a good invasive candidate for heart cath anyway, so we are just going to medically manage things. MD BARBARA Dao/TRUE /12:31 PM /12:49 PM
[2017-11-12] MEDS ORDERED: METO25TA3 PO (13:51)
[2017-11-12] MEDS ORDERED: LISI-519 PO (13:51)
--- NOTE | 2017-11-12 13:52 | HHI.DCPOC ---
Discharge Care Plan Diagnosis: (1) Heart failure (2) Atrial fibrillation with RVR (3) Diffuse large B cell lymphoma Goals to Promote Your Health * To prevent worsening of your condition and complications * To maintain your health at the optimal level Directions to Meet Your Goals Take your medications as prescribed Follow your dietary instruction Follow activity as directed Keep your appointments as scheduled Take your immunizations and boosters as scheduled If your symptoms worsen call your PCP, if no PCP go to Urgent Care Center or Emergency Room Smoking is Dangerous to Your Health. Avoid second hand smoke Call the 24-hour hour crisis hotline for domestic abuse at Brenda Platt Nov 12, 2017 13:52
--- NOTE | 2017-11-12 13:54 | HHI.DS ---
Discharge Summary Admission Date Nov 10, 2017 at 10:01 Discharge Date: Nov 12, 2017 Admitting Diagnosis Diffuse Large B-cell lymphoma, admitted for chemotherapy (1) Heart failure Diagnosis: Secondary ICD Codes: I50.9 - Heart failure, unspecified (2) Diffuse large B cell lymphoma Diagnosis: Principal ICD Codes: C83.30 - Diffuse large B-cell lymphoma, unspecified site Brief History Mr. Werner is a 47y/o with diffuse large B-cell lymphoma, admitted for chemotherapy with R-EPOCH. CBC/BMP: 11/12/17 0518 11/12/17 0518 Significant Findings Laboratory Tests Test 11/10/17 11:00 11/10/17 16:31 11/11/17 05:35 11/12/17 05:18 Red Blood Count 3.06 MIL/MM3 (4.50-5.90) 2.73 MIL/MM3 (4.50-5.90) 3.36 MIL/MM3 (4.50-5.90) Hemoglobin 8.5 GM/DL (13.0-17.0) 7.6 GM/DL (13.0-17.0) 9.4 GM/DL (13.0-17.0) Hematocrit 25.4 % (39.0-51.0) 22.8 % (39.0-51.0) 28.0 % (39.0-51.0) Red Cell Distribution Width 17.3 % (11.6-17.2) 17.6 % (11.6-17.2) 17.5 % (11.6-17.2) Neutrophils (%) (Auto) 80.3 % (16.0-70.0) 83.8 % (16.0-70.0) 90.9 % (16.0-70.0) Lymphocytes # (Auto) 0.8 TH/MM3 (1.0-4.8) 0.6 TH/MM3 (1.0-4.8) 0.3 TH/MM3 (1.0-4.8) Blood Urea Nitrogen 20 MG/DL (7-18) Random Glucose 68 MG/DL (74-106) 127 MG/DL (74-106) Albumin 2.8 GM/DL (3.4-5.0) Aspartate Amino Transf (AST/SGOT) 4 U/L (15-37) Alanine Aminotransferase (ALT/SGPT) 8 U/L (12-78) Total Bilirubin 0.1 MG/DL (0.2-1.0) Potassium Level 3.1 MEQ/L (3.5-5.1) 3.4 MEQ/L (3.5-5.1) Estimat Glomerular Filtration Rate 87 ML/MIN (>89) 78 ML/MIN (>89) Prothrombin Time 15.8 SEC (9.8-11.6) 18.6 SEC (9.8-11.6) 25.8 SEC (9.8-11.6) Activated Partial Thromboplast Time 33.7 SEC (24.3-30.1) Lymphocytes (%) (Auto) 8.8 % (9.0-44.0) 8.2 % (9.0-44.0) Calcium Level 8.3 MG/DL (8.5-10.1) Chloride Level 109 MEQ/L (98-107) 108 MEQ/L (98-107) PE at Discharge please see physical exam from progress note on date of discharge Hospital Course Mr. Werner was admitted on 11/10/17. Baseline labs were obtained and a PICC line was placed. Patient's home medications were resumed and Rituxan was given as ordered. EKG and echocardiogram were obtained. Echo unfortunately showed EF of 25%, so chemotherapy was held and cardiology was consulted. Dr. Gonzales saw the patient on 11/12/17 and recommended medical management, starting Lisinopril and Metoprolol and stopping Norvasc and Cardizem. He also recommended, if possible switching to a non-cardiotoxic chemotherapy regimen. Therefore, the patient was discharged on 11/12/17 with instructions to follow up with Cardiology, Dr. Stack on November 19 at 1PM and to follow up with Dr. Connelly ThursdayNovember 18 at 8:30AM. Pt Condition on Discharge: Good Discharge Disposition: Discharge Home Discharge Instructions DIET: Follow Instructions for: As Tolerated, No Restrictions Activities you can perform: Regular-No Restrictions Brenda Platt Nov 12, 2017 13:54
[2017-11-12] MEDS ORDERED: METOPROLOL TARTRATE 25 MG TAB PO SCH (21:00)
[2017-11-13] MEDS ORDERED: LISINOPRIL 5 MG TAB PO SCH (09:00)
[2017-11-15] MEDS ORDERED: SODIUM CHLORID 0.9% IV ONE (16:00)
[2017-11-15] MEDS ORDERED: CYCLOPHOSPHAMIDE IV ONE (16:00)
== END 2017-11-12 16:07 | disposition home or self-care (01) | DRG 847 ==
LOC: HCIN 11-10 08:16 → OBSVTOIN 11-10 10:01
PROVIDERS: ADMIT Internal Medicine Hematology & Oncology; ATTEND Internal Medicine Hematology & Oncology
PROC: 02HV33Z Insertion of Infusion Device into Superior Vena Cava, Percutaneous Approach (ICD-10-PCS; principal; 2017-11-10)
PROC: B548ZZA Ultrasonography of Superior Vena Cava, Guidance (ICD-10-PCS; 2017-11-10)
PROC: 3E04305 Introduction of Other Antineoplastic into Central Vein, Percutaneous Approach (ICD-10-PCS; 2017-11-10)
DX: Z51.11 Encounter for antineoplastic chemotherapy (principal); C83.34 Diffuse large B-cell lymphoma, lymph nodes of axilla and upper limb; I42.9 Cardiomyopathy, unspecified; I50.9 Heart failure, unspecified; Z68.1 Body mass index [BMI] 19.9 or less, adult; R63.0 Anorexia; I49.3 Ventricular premature depolarization; I10 Essential (primary) hypertension; Z86.711 Personal history of pulmonary embolism; Z87.891 Personal history of nicotine dependence
CPT/HCPCS: 36569; 71045; 76937; 80048; 80053; 83735; 84100; 84550; 85025; 85610; 85730; 93005; 93308; J1642; J7030; J7040; J7512; J9310; Q0163; Q0167

== ENCOUNTER 2017-12-14 07:12 | Day surgery (SDC) | payer MEDICAID ==
[~2017-12-14] VITALS: Ht 188 cm; Wt 52.3 kg
[~2017-12-14 07:12] MED LIST changes: +COUM3TAB PO; -COUM5TAB PO; +DRON2.5 PO; -DRON5CAP PO; +KLOR10TA PO; +LISI-519 PO; +MAGN400T2 PO; +METO25TA3 PO; -NIFE90TA2 PO; +WHEEMIS3
[2017-12-14] MEDS ORDERED: VANCOMYCIN 1000 MG/NS 250 ML - implanted port/tunneled catheter IV SCH ×2 (07:45)
[2017-12-14] MEDS ORDERED: POVIDONE IODINE 5% (ANTISEPSIS KIT) 4 APPLICATIONS EACH NARE SCH (07:45)
[2017-12-14] MEDS ORDERED: ceFAZolin 2 GM PREMIX 50 ML - implanted port removal IV SCH (07:45)
[2017-12-14] MEDS ORDERED: CHLORHEXIDINE GLUCONATE 2 % 1 PACK (2 CLOTHS) TOPICAL SCH (07:45)
[2017-12-14] MEDS ORDERED: ceFAZolin 2 GM PREMIX 50 ML - implanted port/tunneled catheter insertion IV SCH (07:45)
[2017-12-14] MEDS ORDERED: SODIUM CHLORIDE 0.9% 1000 ML IV SCH (07:45)
[2017-12-14] MEDS ORDERED: PROC90TA PO (07:50)
[2017-12-14] MEDS ORDERED: CALC600T4 PO (07:50)
[2017-12-14 08:00] VITALS: BP 121/87; PULSE 34; RESP 20; TEMP 97.8; O2SAT 100
[2017-12-14 08:44] LABS: INTERNATIONAL NORMALIZED RATIO 1.2 RATIO; PROTHROMBIN TIME - PATIENT 11.7 SEC (9.8-11.6)
[2017-12-14] MEDS ORDERED: LIDOCAINE 1%/EPINEPHrine 1:100,000 SOLN 30 ML VIAL ONE (09:07)
--- NOTE | 2017-12-14 10:19 | PD.RAD ---
Post Procedure Progress Note Pre Procedure Diagnosis: (1) Diffuse large B cell lymphoma Post Procedure Diagnosis: (1) Diffuse large B cell lymphoma Procedure Date: Dec 14, 2017 Supervising Radiologist: Jadon Carroll Proceduralist/Assist: Joi Hudson, RT(R)(CV), Anson Chin, RT(R) Anesthesia: Conscious Sedation Plan of Activity Patient to Unit: ROPU Patient Condition: Good See PACS Report for procedural detail/treatment Central Venous Access Device Procedure 1 Right Internal Jugular Infusaport Placement single lumen Jadon Carroll MD Dec 14, 2017 10:19
[2017-12-14 10:30] VITALS: BP 136/94; PULSE 89; RESP 20; TEMP 97.6; O2SAT 99
[2017-12-14] MEDS ORDERED: SODIUM CHLORIDE 0.9% FLUSH 10 ML FLUSH IVF PRN (10:30)
[2017-12-14 10:45] VITALS: BP 136/96; PULSE 82; RESP 20; O2SAT 99
[2017-12-14 11:15] VITALS: BP 136/94; PULSE 80; RESP 20; O2SAT 99
[2017-12-14 11:45] VITALS: BP 130/80; PULSE 84; RESP 20; O2SAT 99
[2017-12-14 12:15] VITALS: BP 141/99; PULSE 84; RESP 20; O2SAT 100
--- NOTE | 2017-12-14 13:48 | RADRPT ---
EXAM DATE/TIME: 12/14/2017 10:26 [facility] COMPARISON: [id number] PLCMT, POWERPORT, W US, RIGHT, April 27, 2017, 14:56. INDICATIONS : Patient presents with recurrent lymphoma in need of port placement for treatment. MEDICAL HISTORY : High grade lymphoma HTN Pulmonary embolism Renal failure Bacterial endocarditis Infected port A-fib SURGICAL HISTORY : Bone marrow aspirate and biopsy Left axillary lymph node dissection Port placement and subequent removal Dialysis catheter placement and removal ENCOUNTER: Subsequent ACUITY: 7-11 months PAIN SCORE: 0/10 LOCATION: N/A FLUORO TIME: 0.5 minutes IMAGE SERIES: 1 SEDATION TIME: 15 minutes ACCESS: Right internal jugular vein SEDATION: 1.) 50 mg fentanyl (Sublimaze) IV 2.) 2 g cefazolin (Ancef) IV 3.) 1g Vancomycin IV Prophylactic antibiotics were administered with appropriate pre-procedure timing. Vancomycin within 2 hours of procedure, Ancef (or alternative) within 1 hour of procedure. DEVICE: 1. 8 Citizen [place] single lumen Bard Power Port PROCEDURE : 1. Continuous pulse oximetry and EKG monitoring. 2. Intravenous conscious sedation. 3. Ultrasound guidance for venous access. 4. Fluoroscopic guided implantable central venous port placement. The patient was placed supine. The neck was prepped in sterile fashion. Full sterile technique was u sed, including cap, mask, sterile gloves and gown, and a large sterile sheet. Hand hygiene and 2% ch lorhexidine Betadine was utilized per protocol for cutaneous antisepsis with appropriate dry time for site. Sterile gel and sterile probe cover were utilized for ultrasound guidance. The skin and sub cutaneous tissues were infiltrated with local anesthetic solution. Under direct ultrasound guidance, central venous access was accomplished in the targeted vessel. The ultrasound images depicting access guidance were stored and saved to PACS for permanent record. A s ubcutaneous pocket was created using blunt dissection. The port was introduced to the pocket. The c atheter tubing was fed through a subcutaneous tunnel to the venotomy site. The catheter tubing was c ut to a suitable length and then was introduced through a valved Peel-Away sheath and positioned with catheter tubing tip at the cavo-atrial junction level. The pocket incision was closed with subcutic ular Vicryl suture. Steri-Strips were applied. The port was flushed and locked with heparin solutio n per protocol. Sterile dressing was applied to the site. The patient tolerated the procedure well. Conscious sedation was performed with the prescribed dosages and duration as above in the presence of an independent trained radiology nurse to assist in the monitoring of the patient. EKG and oximetry remained stable throughout the procedure. The patient tolerated the procedure well and there were no complications. The patient was sent to post anesthesia recovery in stable condition. CONCLUSION: Uncomplicated ultrasound and fluoroscopic guided implanted central venous port catheter placement as described in detail above. An 8 Citizen [place] Power port was placed. Jadon Carroll MD on December 14, 2017 at 13:46 Board Certified Radiologist. This report was verified electronically.
--- NOTE | 2017-12-17 13:55 | EKG ---
Date Performed: 12/14/2017 Time Performed: 09:13:13 PTAGE: 47 years EKG: Sinus rhythm WITH FREQUENT VENTRICULAR PREMATURE COMPLEXES ABNORMAL RHYTHM ECG PREVIOUS TRACING : 11/10/2017 15.48 Compared to prior tracing, frequent PVCs are now seen. DOCTOR: Jadon Zuniga Interpretating Date/Time 12/17/2017 13:53:02
== END 2017-12-14 12:35 | disposition home or self-care (01) ==
LOC: HROP 07:12 → HRIP 07:16 → HROP 12:35
PROVIDERS: ATTEND Internal Medicine Hematology & Oncology
DX: Z45.2 Encounter for adjustment and management of vascular access device (principal); C83.34 Diffuse large B-cell lymphoma, lymph nodes of axilla and upper limb; I10 Essential (primary) hypertension
CPT/HCPCS: 36561; 76937; 77001; 85610; 93005; C1788; J0690; J1642; J3010; J3370; J7030; J7050

== ENCOUNTER 2017-12-30 09:07 | Inpatient (IN) | payer MEDICAID ==
[2017-12-30] VITALS (9 sets, daily range): BP systolic 100–120; BP diastolic 70–86; PULSE 62–95; RESP 16–22; TEMP 97.1–98.3; O2SAT 93–100
[~2017-12-30] VITALS: Ht 188 cm; Wt 59.5 kg
[~2017-12-30 09:07] MED LIST changes: +CALC600T4 PO; -LISI-519 PO; -MAGN400T2 PO; -METO25TA3 PO; +PROC90TA PO
[2017-12-30 09:52] LABS: AUTOMATED NEUTROPHIL # 11.5 TH/MM3 (1.8-7.7); BASOPHIL # 0.1 TH/MM3 (0-0.2); BASOPHIL % 0.6 % (0.0-2.0); EOSINOPHIL # 0.2 TH/MM3 (0-0.4); EOSINOPHIL % 1.5 % (0.0-4.0); HEMATOCRIT 34.8 % (39.0-51.0); HEMOGLOBIN 11.1 GM/DL (13.0-17.0); LYMPH % 2.1 % (9.0-44.0); LYMPHOCYTE # 0.3 TH/MM3 (1.0-4.8); MEAN CELL VOLUME 83.9 FL (80.0-100.0); MEAN CORPUSCULAR HEMOGLOBIN 26.9 PG (27.0-34.0); MEAN PLATELET VOLUME 7.9 FL (7.0-11.0); MONO % 4.6 % (0.0-8.0); MONOCYTE # 0.6 TH/MM3 (0-0.9); NEUT % 91.2 % (16.0-70.0); PLATELET COUNT 333 TH/MM3 (150-450); RED BLOOD COUNT 4.14 MIL/MM3 (4.50-5.90); RED CELL DISTRIBUTION WIDTH 19.1 % (11.6-17.2); WHITE BLOOD COUNT 12.6 TH/MM3 (4.0-11.0)
[2017-12-30 10:05] LABS: BICARBONATE 22.1 MEQ/L (21.0-32.0); CALCIUM 8.9 MG/DL (8.5-10.1); CREATININE 1.36 MG/DL (0.60-1.30)
[2017-12-30 10:08] LABS: INTERNATIONAL NORMALIZED RATIO 1.3 RATIO; PROTHROMBIN TIME - PATIENT 12.8 SEC (9.8-11.6)
[2017-12-30 10:14] LABS: TROPONIN I 0.9 NG/ML (0.02-0.05)
--- NOTE | 2017-12-30 10:28 | PD ---
HPI Chief Complaint: Cardiac Complaint Time Seen by Provider: 09:52 Travel History International Travel<30 days: No Contact w/Intl Traveler<30days: No Traveled to known affect area: No History of Present Illness HPI Patient is a 47-year-old male sent by Dr. Stack for pericardial effusion broaching on pericardial tap and on with what appeared to be a pericardial mass. Patient has a history of non-Hodgkin's lymphoma is followed by Dr. Connelly. Patient is currently on chemotherapy. 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 Stack he states the patient had significant pericardial effusion with a mass in and closing in on tamponade. Patient states that he is only having some mild shortness of breath at this time but denies any chest pain. States symptoms been going on for the past few days and gradually worsening. States symptoms are mild, context as above, associated signs and symptoms as above, duration as above PFSH Past Medical History Hx Anticoagulant Therapy: Yes Atrial Fibrillation: Yes Autoimmune Disease: No Cancer: Yes (NONHODGKINS LYMPHOMA ) Cardiovascular Problems: Yes Chemotherapy: Yes Diabetes: No Endocrine: No Gastrointestinal Disorders: No Genitourinary: No Hypertension: Yes Immune Disorder: No Implanted Vascular Access Dvce: Yes (PORT RIGHT CHEST) Musculoskeletal: No Neurologic: No Psychiatric: No Reproductive: No Respiratory: Yes (Pulmonary embolism in past) Immunizations Current: No Radiation Therapy: No Thyroid Disease: No ?: Not Past Surgical History Surgical History: No Previous Surgery Other Surgery: Yes Social History Alcohol Use: No (quit 02/2017) Tobacco Use: No (quit 02/2017) Substance Use: No (tried weed) Allergies-Medications (Allergen,Severity, Reaction): Coded Allergies: Milk Containing Products (Verified Allergy, Mild, diarrhea, 12/14/17) Reported Meds & Prescriptions Reported Meds & Active Scripts Active Coumadin (Warfarin) 3 Mg Tab 3 Mg PO DAILY@1600 Reported Lisinopril 5 Mg Tab 5 Mg PO DAILY Metoprolol Tartrate 25 Mg Tab 12.5 Mg PO BID Zyloprim (Allopurinol) 300 Mg Tab 300 Mg PO DAILY Protonix (Pantoprazole Sodium) 40 Mg Tab 40 Mg PO DAILY Entresto (Sacubitril-Valsartan) 24-26 Mg Tab 1 Tab PO BID Procardia XL (Nifedipine) 90 Mg Tab 90 Mg PO DAILY Calcium Carbonate 1,500 Mg Tab 1,500 Mg PO DAILY 1,500 mg calcium carbonate (600 mg elemental calcium) Review of Systems Except as stated in HPI: all other systems reviewed are Neg Physical Exam Narrative GENERAL: Well-developed well-nourished no obvious distress, thin/malnourished SKIN: Focused skin assessment warm/dry. HEAD: Atraumatic. Normocephalic. EYES: Pupils equal and round. No scleral icterus. No injection or drainage. ENT: No nasal bleeding or discharge. Mucous membranes pink and moist. NECK: Trachea midline. No JVD. CARDIOVASCULAR: Regular rate and rhythm. No murmur appreciated. 2+ bilateral equal pulses in all 4 extremities RESPIRATORY: No accessory muscle use. Clear to auscultation. Breath sounds equal bilaterally. GASTROINTESTINAL: Abdomen soft, non-tender, nondistended. Hepatic and splenic margins not palpable. MUSCULOSKELETAL: No obvious deformities. No clubbing. No cyanosis. No edema. NEUROLOGICAL: Awake and alert. No obvious cranial nerve deficits. Motor grossly within normal limits. Normal speech. PSYCHIATRIC: Appropriate mood and affect; insight and judgment normal. Data Data Last Documented VS Vital Signs Date Time Temp Pulse Resp B/P (MAP) Pulse Ox O2 Delivery O2 Flow Rate FiO2 12/30/17 10:03 62 22 120/83 (95) 100 Room Air 12/30/17 09:15 97.1 Orders Orders Electrocardiogram (12/30/17 09:28) Complete Blood Count With Diff (12/30/17 09:28) Basic Metabolic Panel (Bmp) (12/30/17 09:28) Ckmb (Isoenzyme) Profile (12/30/17 09:28) Troponin I (12/30/17:28) Iv Access Insert/Monitor (12/30/17:28) Ecg Monitoring (12/30/17:28) Oxygen Administration (12/30/17:28) Oximetry (12/30/17:28) Prothrombin Time / Inr (Pt) (12/30/17:28) Act Partial Throm Time (Ptt) (12/30/17 09:28) Chest, Single Ap (12/30/17 09:28) Echo 2d Comp With Doppler (12/30/17 ) Type And Screen (12/30/17 10:33) Ct Thorax/ Chest Wo Iv Contras (12/30/17 ) Consult Cardiothoracic Surgery (12/30/17 ) Consult Medical Oncology (12/30/17 ) (Hub Use Only)Inp Phy Cons/Ref (12/30/17 ) (Hub Use Only)Inp Phy Cons/Ref (12/30/17 ) Furosemide Inj (Lasix Inj) (12/30/17 12:45) Admit Order (Ed Use Only) (12/30/17 ) Labs Laboratory Tests Test 12/30/17 09:39 White Blood Count 12.6 TH/MM3 Red Blood Count 4.14 MIL/MM3 Hemoglobin 11.1 GM/DL Hematocrit 34.8 % Mean Corpuscular Volume 83.9 FL Mean Corpuscular Hemoglobin 26.9 PG Mean Corpuscular Hemoglobin Concent 32.0 % Red Cell Distribution Width 19.1 % Platelet Count 333 TH/MM3 Mean Platelet Volume 7.9 FL Neutrophils (%) (Auto) 91.2 % Lymphocytes (%) (Auto) 2.1 % Monocytes (%) (Auto) 4.6 % Eosinophils (%) (Auto) 1.5 % Basophils (%) (Auto) 0.6 % Neutrophils # (Auto) 11.5 TH/MM3 Lymphocytes # (Auto) 0.3 TH/MM3 Monocytes # (Auto) 0.6 TH/MM3 Eosinophils # (Auto) 0.2 TH/MM3 Basophils # (Auto) 0.1 TH/MM3 CBC Comment DIFF FINAL Differential Comment Prothrombin Time 12.8 SEC Prothromb Time International Ratio 1.3 RATIO Activated Partial Thromboplast Time 30.4 SEC Blood Urea Nitrogen 10 MG/DL Creatinine 1.36 MG/DL Random Glucose 89 MG/DL Calcium Level 8.9 MG/DL Sodium Level 138 MEQ/L Potassium Level 3.5 MEQ/L Chloride Level 104 MEQ/L Carbon Dioxide Level 22.1 MEQ/L Anion Gap 12 MEQ/L Estimat Glomerular Filtration Rate 68 ML/MIN Total Creatine Kinase 42 U/L Troponin I 0.90 NG/ML [facility] Medical Decision Making Medical Screen Exam Complete: Yes Emergency Medical Condition: Yes Differential Diagnosis Pleural effusion, pericardial effusion, tamponade. Narrative Course Patient presents with SOB in setting of pericardial effusion and pleural effusion. Discussed with CT. surgeon Loulou who will see in consult. I do not see reason for emergent pericardiocentesis. No clinical evidence for tamponade here. Discussed with Dr. Connelly who will see in consult. Given lasix. D/W Dr. Long for admission. I did broach the discussion of hospice, patient and mother not amenable at this time. Diagnosis Primary Impression: Pericardial effusion without cardiac tamponade Additional Impression: Pleural effusion Admitting Information Admitting Physician Requests: Admit Condition: Fidel Ayala MD Dec 30, 2017 10:28
[2017-12-30] MEDS ORDERED: METO25TA3 PO (10:35)
[2017-12-30] MEDS ORDERED: PROT40TA PO (10:35)
[2017-12-30] MEDS ORDERED: SACU1TAB PO (10:35)
[2017-12-30] MEDS ORDERED: ALLO300 PO (10:35)
[2017-12-30] MEDS ORDERED: LISI-519 PO (10:35)
--- NOTE | 2017-12-30 10:54 | RADRPT ---
EXAM DATE/TIME: 12/30/2017 10:36 [facility] COMPARISON: CHEST SINGLE AP, November 10, 2017, 14:12. INDICATIONS : Chest pain. Patient complains of shortness of breath. MEDICAL HISTORY : Lymphoma. Hypertension Hodgkins Lymphoma going through Chemo. AFIb. SURGICAL HISTORY : Port ENCOUNTER: Initial ACUITY: 2 days PAIN SCORE: 0/10 LOCATION: Bilateral chest FINDINGS: The support in good position. Compensated cardiomegaly without failure. Linear atelectatic changes right base. No pneumothorax. CONCLUSION: Compensated cardiomegaly new from comparison study. Atelectatic changes right base Kirk Briceño MD FACR on December 30, 2017 at 10:51 Board Certified Radiologist. This report was verified electronically.
[2017-12-30] MEDS ORDERED: LIDOCAINE HCL 1% PF 5 ML SYRINGE OTHER ONE (12:00)
[2017-12-30] MEDS ORDERED: PROPOFOL 500 MG/50 ML BTL IV ONE (12:00)
[2017-12-30] MEDS ORDERED: fentaNYL CITRATE 250 MCG/5 ML AMP IV ONE (12:00)
[2017-12-30] MEDS ORDERED: ePHEDrine/NS 25 MG/5 ML SYRINGE IV ONE (12:00)
[2017-12-30] MEDS ORDERED: NITROGLYCERIN 50 MG/DEXTROSE 5% SOLN 250 ML BTL IV ONE (12:00)
[2017-12-30] MEDS ORDERED: AMINOCAPROIC ACID INJ 250 MG/ML 20 ML VIAL IV ONE (12:00)
[2017-12-30] MEDS ORDERED: SUCCINYLCHOLINE CHLORIDE 200 MG/10 ML VIAL IV ONE (12:00)
[2017-12-30] MEDS ORDERED: PHENYLEPH/NS 1000 MCG/10 ML SYR IV ONE (12:00)
--- NOTE | 2017-12-30 12:11 | RADRPT ---
EXAM DATE/TIME: 12/30/2017 11:28 [facility] COMPARISON: CT ABDOMEN & PELVIS W/O CONTRAST, May 09, 2017, 21:16. CT THORAX W/O CONTRAST, April 26, 2017, 19:00 . 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 RADIATION DOSE: 4.17 CTDIvol (mGy) MEDICAL HISTORY : Cardiovascular disease. Hypertension. Non Hodgkin's lymphoma SURGICAL HISTORY : None. ENCOUNTER: Initial ACUITY: 1 day PAIN SCALE: 0/10 LOCATION: chest TECHNIQUE: Volumetric scanning of the chest was performed. Using automated exposure control and adjustment of t he mA and/or kV according to patient size, radiation dose was kept as low as reasonably achievable to obtain optimal diagnostic quality images. DICOM format image data is available electronically for r eview and comparison. Follow-up recommendations for detected pulmonary nodules are based at a minimum on nodule size and pa tient risk factors according to Fleischner Society Guidelines. FINDINGS: Small right pleural effusion with extensive distal adenopathy large subcarinal jam mass evident inc ompletely evaluated on this exam because of lack of intravenous contrast. There is no axillary adenopathy. There is cardiomegaly with small pleural effusion Portion of the upper abdomen visualized is grossly unremarkable, incompletely evaluated because of la ck of intravenous contrast Mild degenerative changes thoracic spine. CONCLUSION: Small right pleural effusion with cardiomegaly and trace pericardial effusion Extensive subcarinal adenopathy. Repeat CT scan with contrast would be of benefit. Kirk Briceño MD FACR on December 30, 2017 at 12:07 Board Certified Radiologist. This report was verified electronically.
[2017-12-30] MEDS ORDERED: FUROSEMIDE 40 MG/4 ML VIAL IV PUSH ONE (12:45)
--- NOTE | 2017-12-30 12:53 | ECHRPT ---
Indication: PERICARDIAL EFFUSION CONCLUSIONS Normal left ventricular size. Wall thickness is normal. The left ventricular systolic function is mildly reduced with an estimated ejection fraction in the range of 45- 50% Mild mitral valve regurgitation. There is trace tricuspid valve regurgitation. There is a small to moderate size pericardial effusion present, more prominent posteriorly. No hemodynamically significant echocardiographic features were observed (no pre-tamponade physiology). A large left sided pleural effusion is noted. BP: 120 / 83 HR: 62 Rhythm: Sinus MEASUREMENTS (Male / Female) Normal Values Technical Quality:Fair 2D ECHO LV Diastolic Diameter PLAX 5.2 cm 4.2 - 5.9 / 3.9 - 5.3 cm LV Systolic Diameter PLAX 4.1 cm IVS Diastolic Thickness 1.0 cm 0.6 - 1.0 / 0.6 - 0.9 cm LVPW Diastolic Thickness 1.0 cm 0.6 - 1.0 / 0.6 - 0.9 cm LV Relative Wall Thickness 0.4 RV Internal Dim ED PLAX 1.8 cm LVOT Diameter 2.3 cm Aortic Root Diameter 3.2 cm DOPPLER AV Peak Velocity 103.0 cm/s AV Peak Gradient 4.2 mmHg AV Mean Gradient 2.0 mmHg AV Velocity Time Integral 12.9 cm LVOT Peak Velocity 69.3 cm/s LVOT Peak Gradient 1.9 mmHg LVOT Velocity Time Integral 8.0 cm AV Area Cont Eq vti 2.6 cm AV Area Cont Eq pk 2.8 cm LV E' Lateral Velocity 8.5 cm/s LV E' Septal Velocity 7.3 cm/s FINDINGS LEFT VENTRICLE Normal left ventricular size. Wall thickness is normal. The left ventricular systolic function is mildly reduced with an estimated ejection fraction in the range of 45- 50%. RIGHT VENTRICLE Normal right ventricular size and systolic function. LEFT ATRIUM The left atrial size is normal. RIGHT ATRIUM The right atrial size is normal. ATRIAL SEPTUM The interatrial septum not well visualized. AORTA The aortic root and proximal ascending aorta are not well visualized. MITRAL VALVE Mild mitral valve regurgitation. AORTIC VALVE Trileaflet aortic valve. No aortic valve stenosis or regurgitation. TRICUSPID VALVE There is trace tricuspid valve regurgitation. PULMONARY VALVE Trivial pulmonary valve regurgitation. VESSELS The inferior vena cava is normal in size. PERICARDIUM There is a small to moderate pericardial effusion present, more prominent posteriorly. No hemodynamically significant echocardiographic features were observed (no pre-tamponade physiology). A large left sided pleural effusion is noted. Mayra Azul MD, FACC (Electronically Signed) Final Date:30 December 2017 12:52
[2017-12-30] MEDS: SODIUM CHLOR 0.9% 1000 ML INJ 1,000 ML IV SCH ×2 (13:29→21:46)
[2017-12-30] MEDS ORDERED: SENNOSIDES 8.6 MG TAB PO PRN (13:30)
[2017-12-30] MEDS ORDERED: BISACODYL 10 MG SUPP RECTAL PRN (13:30)
[2017-12-30] MEDS ORDERED: LACTULOSE SYRUP 20 GM/30 ML CUP PO PRN (13:30)
[2017-12-30] MEDS ORDERED: ACETAMINOPHEN 325 MG TAB PO PRN ×3 (13:30→16:00)
[2017-12-30] MEDS ORDERED: MORPHINE SULFATE 2 MG/ML INJ IV PUSH PRN ×3 (13:30)
[2017-12-30] MEDS ORDERED: SODIUM CHLORIDE 0.9% FLUSH 10 ML FLUSH IV FLUSH PRN ×2 (13:30→16:00)
[2017-12-30] MEDS ORDERED: MAGNESIUM HYDROXIDE SUSP 30 ML CUP PO PRN ×2 (13:30→16:00)
[2017-12-30] MEDS ORDERED: NALOXONE HCL 0.4 MG/ML AMP IV PUSH PRN (13:30)
[2017-12-30] MEDS ORDERED: METOCLOPRAMIDE HCL 10 MG/2 ML VIAL IV PUSH PRN (13:30)
[2017-12-30] MEDS ORDERED: ONDANSETRON HCL 4 MG/2 ML VIAL IVP PRN (13:30)
[2017-12-30] MEDS ORDERED: TEMAZEPAM 15 MG CAP PO PRN (13:30)
--- NOTE | 2017-12-30 13:48 | HHI.HP ---
[facility] Ruslan Connelly MD Admission Diagnosis Pleural Effusion, Pericardial effusion. Diagnoses: (1) Diffuse large B cell lymphoma Diagnosis: Secondary (2) Heart failure Diagnosis: Secondary (3) Pulmonary emboli Diagnosis: Secondary (4) Severe protein-calorie malnutrition Diagnosis: Secondary (5) Hypertension Diagnosis: Secondary (6) Debility (7) Non-Hodgkin lymphoma Diagnosis: Secondary (8) Shortness of breath Diagnosis: Principal (9) Pericardial effusion without cardiac tamponade Diagnosis: Principal (10) Pleural effusion Diagnosis: Principal Chief Complaint: Cardiac complaint Travel History International Travel<30 Days: No Contact w/Intl Traveler <30 Da: No Traveled to Known Affected Are: No History of Present Illness Patient is a 47-year-old -Chinese male who was sent in by Dr. MCMAHON for pericardial effusion broaching on pericardial tamponade. Patient has a known history of non-Hodgkin's lymphoma by Dr. CONNELLY of oncology. Patient states he had chemotherapy a couple weeks ago. 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 And Dr. MCMAHON stated that patient had significant pericardial effusion with a mass and worsening tamponade is approaching. Patient states he is only having some mild shortness of breath denies any chest pain he states this is been going on for the past few days and gradually worsening patient will therefore be admitted will consult cardiovascular surgery and medical oncology. Review of Systems Constitutional: COMPLAINS OF: Fatigue, DENIES: Diaphoretic episodes, Fever, Weight gain, Weight loss, Chills, Dizziness, Change in appetite, Night Sweats Endocrine: DENIES: Heat/cold intolerance, Polydipsia, Polyuria, Polyphagia Eyes: DENIES: Blurred vision, Diplopia, Eye inflammation, Eye pain, Vision loss , Photosensitivity, Double Vision Ears, nose, mouth, throat: DENIES: Tinnitus, Hearing loss, Vertigo, Nasal discharge, Oral lesions, Throat pain, Hoarseness, Ear Pain, Running Nose, Epistaxis, Sinus Pain, Toothache, Odynophagia Respiratory: COMPLAINS OF: Shortness of breath, DENIES: Apneas, Cough, Snoring , Wheezing, Hemoptysis, Sputum production Cardiovascular: COMPLAINS OF: Dyspnea on Exertion, Orthopnea, DENIES: Chest pain, Palpitations, Syncope, PND, Lower Extremity Edema, Claudication Gastrointestinal: DENIES: Abdominal pain, Black stools, Bloody stools, Constipation, Diarrhea, Nausea, Vomiting, Difficulty Swallowing, Anorexia Musculoskeletal: DENIES: Joint pain, Muscle aches, Stiffness, Joint Swelling, Back pain, Neck pain Integumentary: DENIES: Abnormal pigmentation, Nail changes, Pruritus, Rash Hematologic/lymphatic: COMPLAINS OF: Lymphadenopathy, DENIES: Bruising Immunologic/allergic: DENIES: Eczema, Urticaria Neurologic: COMPLAINS OF: Poor Balance, DENIES: Abnormal gait, Headache, Localized weakness, Paresthesias, Seizures, Speech Problems, Tremor Psychiatric: COMPLAINS OF: Depression, DENIES: Anxiety, Confusion, Mood changes , Hallucinations, Agitation, Suicidal Ideation, Homicidal Ideation, Delusions Except as stated in HPI: all other systems reviewed are Neg Past Family Social History Past Medical History Non-Hodgkin's lymphoma Chronic anticoagulation therapy Atrial fibrillation History of chemotherapy Hypertension Right-sided chest port Pulmonary embolism History of MRSA History of C. difficile Past Surgical History Right-sided chest port Biopsy of lymph node Reported Medications Reported Meds & Active Scripts Active Coumadin (Warfarin) 3 Mg Tab 3 Mg PO DAILY@1600 Reported Lisinopril 5 Mg Tab 5 Mg PO DAILY Metoprolol Tartrate 25 Mg Tab 12.5 Mg PO BID Zyloprim (Allopurinol) 300 Mg Tab 300 Mg PO DAILY Protonix (Pantoprazole Sodium) 40 Mg Tab 40 Mg PO DAILY Entresto (Sacubitril-Valsartan) 24-26 Mg Tab 1 Tab PO BID Procardia XL (Nifedipine) 90 Mg Tab 90 Mg PO DAILY Calcium Carbonate 1,500 Mg Tab 1,500 Mg PO DAILY 1,500 mg calcium carbonate (600 mg elemental calcium) Allergies: Coded Allergies: Milk Containing Products (Verified Allergy, Mild, diarrhea, 12/14/17) Active Ordered Medications Current Medications Furosemide (Lasix Inj) 40 mg ONCE ONCE IV PUSH ; Start 12/30/17 at 12:45; Stop 12/30/17 at 12:46; Status DC Family History Hypertension Social History Denies any alcohol tobacco quit in February 2017 Has tried marijuana before Physical Exam Vital Signs Vital Signs Date Time Temp Pulse Resp B/P (MAP) Pulse Ox O2 Delivery O2 Flow Rate FiO2 12/30/17 10:03 62 22 120/83 (95) 100 Room Air 12/30/17 10:00 99 Room Air 12/30/17 09:58 87 16 120/83 (95) 98 Room Air 12/30/17 09:15 97.1 95 20 117/86 (96) 100 Physical Exam GENERAL: This is a very cachectic thin appearing male who appears older than stated age, in mild distress. SKIN: No rashes, ecchymoses or lesions. Cool and dry. HEAD: Atraumatic. Normocephalic. No temporal or scalp tenderness. EYES: Pupils equal round and reactive. Extraocular motions intact. No scleral icterus. No injection or drainage. ENT: Nose without bleeding, purulent drainage or septal hematoma. Throat without erythema, tonsillar hypertrophy or exudate. Uvula midline. Airway patent. NECK: Trachea midline. No JVD or lymphadenopathy. Supple, nontender, no meningeal signs. CARDIOVASCULAR: Regular rate and rhythm without murmurs, gallops, positive slight rub S1-S2 no S3 or S4 RESPIRATORY: Clear to auscultation. Breath sounds equal bilaterally. No wheezes , rales, or rhonchi. GASTROINTESTINAL: Abdomen soft, non-tender, nondistended. No hepato-splenomegaly , or palpable masses. No guarding. MUSCULOSKELETAL: Extremities without clubbing, cyanosis, or edema. No joint tenderness, effusion, or edema noted. No calf tenderness. Negative Homans sign bilaterally. NEUROLOGICAL: Awake and alert. Cranial nerves II through XII intact. Motor and sensory grossly within normal limits. 4 out of 5 muscle strength in all muscle groups. Normal speech. Insight and judgment is limited Mood and behavior somewhat appropriate Laboratory Laboratory Tests Test 12/30/17 09:39 White Blood Count 12.6 Red Blood Count 4.14 Hemoglobin 11.1 Hematocrit 34.8 Mean Corpuscular Volume 83.9 Mean Corpuscular Hemoglobin 26.9 Mean Corpuscular Hemoglobin Concent 32.0 Red Cell Distribution Width 19.1 Platelet Count 333 Mean Platelet Volume 7.9 Neutrophils (%) (Auto) 91.2 Lymphocytes (%) (Auto) 2.1 Monocytes (%) (Auto) 4.6 Eosinophils (%) (Auto) 1.5 Basophils (%) (Auto) 0.6 Neutrophils # (Auto) 11.5 Lymphocytes # (Auto) 0.3 Monocytes # (Auto) 0.6 Eosinophils # (Auto) 0.2 Basophils # (Auto) 0.1 CBC Comment DIFF FINAL Differential Comment Prothrombin Time 12.8 Prothromb Time International Ratio 1.3 Activated Partial Thromboplast Time 30.4 Blood Urea Nitrogen 10 Creatinine 1.36 Random Glucose 89 Calcium Level 8.9 Sodium Level 138 Potassium Level 3.5 Chloride Level 104 Carbon Dioxide Level 22.1 Anion Gap 12 Estimat Glomerular Filtration Rate 68 Total Creatine Kinase 42 Troponin I 0.90 Result Diagram: 12/30/17 0939 12/30/17 0939 Imaging Last Impressions Chest X-Ray 12/30/17927 Signed Impressions: Service Date/Time: Saturday, December 30, 2017 10:36 - CONCLUSION: Compensated cardiomegaly new from comparison study. Atelectatic changes right base Kirk Briceño MD FACR Chest CT 12/30/17 0000 Signed Impressions: Service Date/Time: Saturday, December 30, 2017 11:28 - CONCLUSION: Small right pleural effusion with cardiomegaly and trace pericardial effusion Extensive subcarinal adenopathy. Repeat CT scan with contrast would be of benefit. Kirk Briceño MD FACR Caprini VTE Risk Assessment Caprini VTE Risk Assessment: Mod/High Risk (score >= 2) Caprini Risk Assessment Model Point Value = 1 Point Value = 2 Point Value = 3 Point Value = 5 Age 41-60 Minor surgery BMI > 25 kg/m2 Swollen legs Varicose veins or History of unexplained or recurrent spontaneous Oral contraceptives or hormone replacement Sepsis (< 1 month) Serious lung disease, including pneumonia (< 1 month) Abnormal pulmonary function Acute myocardial infarction Congestive heart failure (< 1 month) History of inflammatory bowel disease Medical patient at bed rest Age 61-74 Arthroscopic surgery Major open surgery (> 45 min) Laparoscopic surgery (> 45 min) Malignancy Confined to bed (> 72 hours) Immobilizing plaster cast Central venous access Age >= 75 History of VTE Family history of VTE Factor V Leiden Prothrombin [id number] Lupus anticoagulant Anticardiolipin antibodies Elevated serum homocysteine Heparin-induced thrombocytopenia Other congenital or acquired thrombophilia Stroke (< 1 month) Elective arthroplasty Hip, pelvis, or leg fracture Acute spinal cord injury (< 1 month) Prophylaxis Regimen Total Risk Factor Score Risk Level Prophylaxis Regimen 0-1 Low Early ambulation 2 Moderate Order ONE of the following: *Sequential Compression Device (SCD) *Heparin 5000 units SQ BID 3-4 Higher Order ONE of the following medications: *Heparin 5000 units SQ TID *Enoxaparin/Lovenox 40 mg SQ daily (WT < 150 kg, CrCl > 30 mL/min) *Enoxaparin/Lovenox 30 mg SQ daily (WT < 150 kg, CrCl > 10-29 mL/min) *Enoxaparin/Lovenox 30 mg SQ BID (WT < 150 kg, CrCl > 30 mL/min) AND/OR *Sequential Compression Device (SCD) 5 or more Highest Order ONE of the following medications: *Heparin 5000 units SQ TID (Preferred with Epidurals) *Enoxaparin/Lovenox 40 mg SQ daily (WT < 150 kg, CrCl > 30 mL/min) *Enoxaparin/Lovenox 30 mg SQ daily (WT < 150 kg, CrCl > 10-29 mL/min) *Enoxaparin/Lovenox 30 mg SQ BID (WT < 150 kg, CrCl > 30 mL/min) AND *Sequential Compression Device (SCD) Assessment and Plan Assessment and Plan Pericardial effusion close to cardiac tamponade consult cardiovascular surgery as well as oncology We will give Lasix Hypertension continue on home medications GERD continue on Protonix Gout due to issues with non-Hodgkin's lymphoma continue on allopurinol Chronic Coumadin for pulmonary emboli daily PT/INR Consult oncology consult cardiovascular surgery Positive troponins Trend troponin Consult cardiology RENAL INSUFFICIENCY MONITOR Code Status Full code Discussed Condition With Patient and RN and mother and ER physician Physician Certification 2 Midnight Certification Type: Admission for Inpatient Services Order for Inpatient Services The services are ordered in accordance with Medicare regulations or non- Medicare payer requirements, as applicable. In the case of services not specified as inpatient-only, they are appropriately provided as inpatient services in accordance with the 2-midnight benchmark. Estimated LOS (days): 5 days is the estimated time the patient will need to remain in the hospital, assuming treatment plan goals are met and no additional complications. Post-Hospital Plan: Not yet determined Kirk Long DO Dec 30, 2017 13:48
[2017-12-30] MEDS ORDERED: ceFAZolin 2 GM PREMIX 50 ML ONE (14:35)
[2017-12-30] MEDS ORDERED: BUPIVACAINE HCL PF 0.5% 30 ML VIAL ONE (14:35)
[2017-12-30] MEDS ORDERED: ETOMIDATE 20 MG/10 ML VIAL ONE (14:44)
[2017-12-30] MEDS ORDERED: ROCURONIUM INJ 50 MG/5 ML SYRINGE IV PUSH ONE (14:45)
[2017-12-30] MEDS ORDERED: SUGAMMADEX SODIUM 200 MG/2 ML VIAL IV PUSH ONE (14:45)
[2017-12-30] MEDS ORDERED: ONDANSETRON HCL 4 MG/2 ML VIAL ONE (15:46)
[2017-12-30] MEDS ORDERED: Post-op Orders (for Pharmacy) OTHER ONE (16:00)
[2017-12-30] MEDS ORDERED: ACETAMINOPHEN/HYDROcodone 325 MG/5 MG TAB PO PRN (16:00)
[2017-12-30] MEDS ORDERED: ONDANSETRON HCL 4 MG/2 ML VIAL IV PUSH PRN (16:00)
--- NOTE | 2017-12-30 16:05 | PD.OP ---
cc: Ruslan Connelly MD; Aye Jamil MD Operative Report Date of Surgery: Dec 30, 2017 Preoperative Diagnosis: Postoperative Diagnosis: Procedure: 1. Emergent Subxiphoid Pericardial Window. 2. Drainage of Pericardial Effusion. 3. Pericardial Biopsy Surgeon: Aye Jamil Landing Man(s): A Marialuisa Operation and Findings: PREOPERATIVE DIAGNOSES 1. Moderate Pericardial Effusion . 2. Non-Hodgkin's Lymphoma 3. Early Tamponade Physiology POSTOPERATIVE DIAGNOSES Same PROCEDURE 1. Emergent Subxiphoid Pericardial Window. 2. Drainage of Pericardial Effusion. 3. Pericardial Biopsy SSN/SSBN ASSISTANT NAVIGATOR Emily Elam PA-C ANESTHESIA General endotracheal. ANESTHETISTS MEL Kim MD PREPARATION ChloraPrep. NEEDLE, SPONGE, AND INSTRUMENT COUNTS Correct. DRAINS One 28-Latvian pericardial tube. COMPLICATIONS None. INDICATIONS The patient is a 47 year-old with Lymphoma presenting with shortness of breath and a large pericardial effusion. The patient is being brought to the operating room for emergent drainage procedure. DESCRIPTION OF PROCEDURE The patient was brought to the operating room and placed supine on the OR table. Following the induction of adequate general endotracheal anesthesia and placement of appropriate monitoring devices, the chest and abdomen were then prepped and draped in a standard sterile fashion. Through an approximately 3 cm subxiphoid incision, the incision was carried down to the level of the endothoracic fascia which was divided, and the xiphoid process lifted off the pericardium. The prepericardial fat was dissected free, and the anterior surface of the pericardium identified. A longitudinal pericardiotomy was performed and enlarged horizontally to create a big hole. 250 mls of hemorrhagic effusion was evacuated and sent for microbiologic and cytologic analysis. A pericardial biopsy was also obtained and sent for histologic analysis. Echocardiographic confirmation of complete evacuation of all pericardial effusion was made.Strict hemostasis was assured. A 28-Latvian chest tube was then placed into the pericardial space and exited through a separate stab wound. Incision was anesthetized with 0.5% Marcaine with epinephrine and the incision closed in 3 layers. Dermabond and sterile dressing were applied. The patient was transferred to ICU in stable condition. Aye Jamil MD Dec 30, 2017 16:05
[2017-12-30] MEDS ORDERED: DO NOT ADM ANY ANTICOAGULANT DRUGS PRN (16:14)
[2017-12-30] MEDS ORDERED: fentaNYL CITRATE 250 MCG/5 ML AMP ONE (16:21)
--- NOTE | 2017-12-30 16:48 | MB ---
cc: Aye Jamil MD, Donald DO Chew,Ruslan Brenner MD DATE: 12/30/2017 REFERRING PHYSICIAN: Emergency department. REASON FOR CONSULTATION: Pericardial effusion with early tamponade physiology. HISTORY OF PRESENT ILLNESS: Mr. Werner is a very pleasant 47-year-old, very frail appearing, gentleman with a known history of non-Hodgkin's lymphoma who is being treated by Dr. Connelly with chemotherapy, who now presents with gradual progressive symptoms of shortness of breath with some associated chest pressure. The patient was seen by Dr. Stack in his office and had an echocardiogram done which revealed significant pericardial effusion with tamponade physiology and he was sent to the Emergency Department for further management. In the ER, echocardiogram was done which revealed moderate pericardial effusion with no tamponade physiology; however, with significant stranding. I am now being considered for surgical decompression therapy. At the present time, his shortness of breath is relatively stable with supplemental oxygen therapy. Denies any significant chest pressure or chest pain. Denies any syncopal episodes. He is very cachectic and has not eaten for 2 days because of loss of appetite. PAST MEDICAL HISTORY: 1. Significant for non-Hodgkin's lymphoma as described above. 2. Atrial fibrillation. 3. Hypertension. 4. Pulmonary embolism. 5. History of MRSA. 6. History of Clostridium difficile. 7. Chemotherapy presently for his non-Hodgkin lymphoma. 8. Chronic anticoagulation therapy. PAST SURGICAL HISTORY: 1. Remarkable for right-sided chest port placement. 2. Biopsy lymph node. ALLERGIES: THE PATIENT REPORTS ALLERGIES TO MILK-CONTAINING PRODUCTS WITH NO KNOWN DRUG ALLERGIES. HOME MEDICATIONS: 1. Coumadin. 2. Lisinopril. 3. Metoprolol. 4. Zyloprim. 5. Protonix. 6. Entresto. 7. Procardia. 8. Calcium. 9. Lasix. FAMILY HISTORY: Significant for hypertension. SOCIAL HISTORY: Denies any history of smoking, alcohol use or illicit drug use. He does have a prior history of tobacco use, which he quit in 02/2017 and has tried marijuana before. REVIEW OF SYSTEMS: As above, all other parameters are negative. PHYSICAL EXAMINATION: VITAL SIGNS: Today, he is 187 cm tall, weighs 55 kilos, blood pressure is 117/81 with a heart rate of 91 which is sinus tachycardia, respiratory rate is 18 and he is afebrile. He is sating 100% on room air. HEENT: Normocephalic, atraumatic. Pupils round and reactive. Extraocular muscles intact. NECK: No cervical lymphadenopathy, carotid bruits or JVD. CARDIOVASCULAR: Sinus tachycardia, otherwise regular rhythm. Normal S1, S2, without gallops or rubs or murmurs. No muffled heart sounds. LUNGS: Clear to auscultation bilaterally with good air exchange. There is a right-sided MediPort in the subclavicular position. ABDOMEN: Soft, nontender, and nondistended. Normoactive bowel sounds. No hepatosplenomegaly. EXTREMITIES: Bilateral lower extremity pulses are intact without cyanosis, clubbing or edema. No venous varicosities. NEUROLOGIC: Intact with no focal deficits. IMPRESSION: 1. Significant pericardial effusion with early tamponade physiology. 2. Non-Hodgkin's lymphoma. 3. Atrial fibrillation. 4. Hypertension. 5. Pulmonary embolism. PLAN: The clinical and echocardiographic findings were discussed in detail with the patient and his mother today. Therapeutic options available including emergent subxiphoid pericardial window with drainage of the pericardial effusion, as well as pericardial biopsy in efforts to relieve the pressure on his heart as well as to obtain a diagnostic etiology of the underlying fluid was recommended to them. The risks, complication and benefits of surgical procedure and the inherent technical details were discussed in detail and all questions answered. He understands the provided information and wishes to proceed with the planned operation. We will proceed emergently to the operating room for the above described procedure. Thank you for allowing me participate in the care of your patient. MD ÁNGEL Borges/JUSTIN , 04:00 PM , 04:46 PM RAVINDRA
--- NOTE | 2017-12-30 17:02 | RADRPT ---
EXAM DATE/TIME: 12/30/2017 16:30 [facility] COMPARISON: CHEST SINGLE AP, December 30, 2017, 10:36. INDICATIONS : Status post thoracotomy. MEDICAL HISTORY : Lymphoma. Hypertension Hodgkins Lymphoma going through Chemo. AFIb. SURGICAL HISTORY : Port placement. ENCOUNTER: Initial ACUITY: 1 day PAIN SCORE: Non-responsive. LOCATION: Bilateral chest FINDINGS: Right chest port is stable in good position. A midline thoracostomy tube is present. There is hazy ri ght basilar pleuroparenchymal opacity. Left lung is stable and grossly clear. Cardiac contours are sa tisfactory for technique and projection. CONCLUSION: Mild hazy pleuroparenchymal opacity at the right lung base. Midline thoracostomy tube. Tacos Garcia MD on December 30, 2017 at 16:59 Board Certified Radiologist. This report was verified electronically.
[2017-12-30] MEDS: KETOROLAC TROMETHAMINE 30 MG/ML (IVP) VIAL IV PUSH SCH ×2 (17:50→21:46)
--- NOTE | 2017-12-30 20:04 | EKG ---
Date Performed: 12/30/2017 Time Performed: 09:34:21 PTAGE: 47 years EKG: Sinus rhythm NONSPECIFIC ST ELEVATION BORDERLINE ECG PREVIOUS TRACING : 12/14/2017 09.13 Since the previous tracing, no significant change noted DOCTOR: Scott Perdue Interpretating Date/Time 12/30/2017 20:03:39
--- NOTE | 2017-12-30 20:55 | MB ---
cc: Mayra Azul MD DATE: 12/30/2017 Mr. Werner is a 47-year-old black male with a history of non-Hodgkin lymphoma, who presented with progressive shortness of breath and mild chest pressure. He saw Dr. Stack and his echocardiogram showed a large pericardial effusion and pericardial tamponade. His echocardiogram in the emergency room showed moderate pericardial effusion. He underwent emergent subxiphoid pericardial window and drainage of the pericardial effusion and pericardial biopsy by Dr. Jamil. His shortness of breath is now significantly improved and he denies any chest pain. PAST MEDICAL HISTORY: Positive for non-Hodgkin lymphoma, atrial fibrillation on chronic anticoagulation, history of chemotherapy, hypertension, right-sided chest port, pulmonary embolism, MRSA, C. difficile, lymph node biopsy. MEDICATIONS: Include warfarin, lisinopril, metoprolol, Zyloprim, Protonix, Entresto, Procardia, calcium carbonate. ALLERGIES: MILK. SOCIAL HISTORY: The patient quit smoking last year. He does not drink alcohol. FAMILY HISTORY: Negative for heart disease. REVIEW OF SYSTEMS: Otherwise negative. PHYSICAL EXAMINATION: VITAL SIGNS: Blood pressure 106/82, pulse 92 and irregular. GENERAL: The patient is appearing cachectic. HEENT: Negative. NECK: 2+ upstrokes, no bruits. LUNGS: Clear. HEART: Regular with no murmur, gallop or rub. ABDOMEN: Soft. No bruits. EXTREMITIES: Without edema. 2+ pulses. NEUROLOGIC: Grossly nonfocal. The patient is currently in no acute distress, resting after surgery. LABORATORY DATA: EKG was reviewed and showed a normal sinus rhythm and marked diffuse nonspecific ST elevation. Hemoglobin 11.1, potassium 3.5, creatinine 1.39. CK 42, troponin 0.9. Echocardiogram revealed pericardial effusion, more prominent posteriorly with no clear evidence of pericardial tamponade. Ejection fraction was estimated at 45% to 50%. DIAGNOSES: 1. Pericardial effusion. 2. Status post subxiphoid pericardial window and drainage of pericardial effusion. 3. Elevated troponin. 4. Diffuse large B cell lymphoma. 5. Malnutrition. 6. Paroxysmal atrial fibrillation. 7. History of pulmonary embolism. RECOMMENDATIONS: Mr. Werner will be monitored on telemetry. I recommend to obtain serial enzymes and EKGs. We will await the result of his pericardial biopsy. The patient states he had a stress test recently with Dr. Stack and it was unremarkable. I recommend to obtain records from Dr. Stack. I will follow him for cardiology during his hospitalization. MD VALARIE Dutta/rt , 07:55 PM , 08:54 PM RAVINDRA
[2017-12-30] MEDS ORDERED: SODIUM CHLORIDE 0.9% FLUSH 10 ML FLUSH IV FLUSH SCH (21:00)
[2017-12-30] MEDS: DOCUSATE SODIUM 50 MG/SENNA 8.6 MG TAB PO SCH (21:00)
[2017-12-30] MEDS: DOCUSATE CALCIUM 240 MG CAP PO SCH ×2 (21:00→21:43)
[2017-12-30] MEDS: PANTOPRAZOLE SOD 40 MG DELAYED RELEASE TAB PO SCH (21:43)
[2017-12-30] MEDS: METOPROLOL TARTRATE 25 MG TAB PO SCH (21:45)
[2017-12-30] MEDS: SODIUM CHLORIDE 0.9% FLUSH 10 ML FLUSH IV FLUSH SCH (21:45)
[2017-12-30 22:00] LABS: TROPONIN I 1.06 NG/ML (0.02-0.05)
[2017-12-30] MEDS: SACUBITRIL/VALSARTAN 24 MG-26 MG TAB PO SCH (23:05)
[2017-12-31] VITALS (29 sets, daily range): BP systolic 87–96; BP diastolic 57–70; PULSE 82–94; RESP 16–20; TEMP 97.1–98.4; O2SAT 92–98
[2017-12-31 03:43] LABS: AUTOMATED NEUTROPHIL # 6.3 TH/MM3 (1.8-7.7); BASOPHIL # 0.1 TH/MM3 (0-0.2); BASOPHIL % 0.8 % (0.0-2.0); EOSINOPHIL # 0.2 TH/MM3 (0-0.4); EOSINOPHIL % 3.2 % (0.0-4.0); HEMATOCRIT 33.2 % (39.0-51.0); HEMOGLOBIN 10.9 GM/DL (13.0-17.0); LYMPHOCYTE # 0.2 TH/MM3 (1.0-4.8); MEAN CELL VOLUME 81.6 FL (80.0-100.0); MEAN CORPUSCULAR HEMOGLOBIN 26.8 PG (27.0-34.0); MEAN CORPUSCULAR HGB CONC 32.8 % (32.0-36.0); MEAN PLATELET VOLUME 8.1 FL (7.0-11.0); MONO % 6.3 % (0.0-8.0); MONOCYTE # 0.5 TH/MM3 (0-0.9); NEUT % 86.7 % (16.0-70.0); PLATELET COUNT 332 TH/MM3 (150-450); RED BLOOD COUNT 4.06 MIL/MM3 (4.50-5.90); WHITE BLOOD COUNT 7.3 TH/MM3 (4.0-11.0)
[2017-12-31 03:55] LABS: INTERNATIONAL NORMALIZED RATIO 1.4 RATIO; PROTHROMBIN TIME - PATIENT 14.3 SEC (9.8-11.6)
[2017-12-31 04:05] LABS: ALBUMIN 2.3 GM/DL (3.4-5.0); ALT (GPT) LESS THAN 6 U/L (12-78); AST (GOT) 12 U/L (15-37); BICARBONATE 22.3 MEQ/L (21.0-32.0); BLOOD UREA NITROGEN 11 MG/DL (7-18); CALCIUM 8.4 MG/DL (8.5-10.1); CHLORIDE 105 MEQ/L (98-107); CREATININE 1.47 MG/DL (0.60-1.30); GLOMERULAR FILTRATION RATE 62 ML/MIN (>89); GLUCOSE,RANDOM 84 MG/DL (74-106); MAGNESIUM 1.4 MG/DL (1.5-2.5); PHOSPHORUS 3.2 MG/DL (2.5-4.9); SODIUM (NA) 139 MEQ/L (136-145)
[2017-12-31 04:10] LABS: TROPONIN I 0.79 NG/ML (0.02-0.05)
[2017-12-31 04:14] LABS: ALKALINE PHOSPHATASE 150 U/L (45-117); FREE T4 1.66 NG/DL (0.76-1.46); TOTAL BILIRUBIN ADULT 0.2 MG/DL (0.2-1.0)
[2017-12-31] MEDS: KETOROLAC TROMETHAMINE 30 MG/ML (IVP) VIAL IV PUSH SCH ×2 (05:01→09:59)
--- NOTE | 2017-12-31 06:26 | RADRPT ---
EXAM DATE/TIME: 12/31/2017 05:00 [facility] COMPARISON: CHEST SINGLE AP, December 30, 2017, 16:30. INDICATIONS : Shortness of breath, possible pulmonary disease. MEDICAL HISTORY : Lymphoma. Hypertension A-Fib SURGICAL HISTORY : Thoracotomy Essprr-g-mrps ENCOUNTER: Subsequent ACUITY: 2 days PAIN SCORE: Non-responsive. LOCATION: Right chest FINDINGS: [id number]-[id number] catheter tip projects in the right atrium. Hazy opacity in the right lower chest with blurring of the costophrenic angle suggests pleural effusion, stable from prior. Some patchy infiltr ates at the left lung base are similar to prior. Heart is stable in size. CONCLUSION: Stable right pleural effusion and patchy left lower lobe infiltrates. Bryon Evans MD on December 31, 2017 at 6:23 Board Certified Radiologist. This report was verified electronically.
--- NOTE | 2017-12-31 08:37 | MB ---
cc: Ruslan Connelly MD DATE: 12/30/2017 ATTENDING PHYSICIAN: Dr. Leggett REASON FOR CONSULTATION: Oncology consult, render opinion on a patient with lymphoma, on chemotherapy, presented in the hospital with pericardial effusion. HISTORY OF PRESENT ILLNESS: The patient is a 47-year-old male with history of a high risk non-Hodgkin B cell lymphoma with triple-hit diagnosed in April 2017. He had extensive mediastinal cervical bilateral axillary adenopathy. He also had extensive mesenteric and retroperitoneal adenopathy. Biopsy of the left axillary lymph node showed diffuse large B cell lymphoma with triple-hit. He had 1 cycle of CHOP with Rituxan at reduced dose because, at that time, he had sepsis and renal failure and on dialysis. He recovered sepsis and was started on Rituxan E-EPOCH for 5 cycles. He unfortunately had sepsis and found to have bacterial endocarditis. He developed significant cardiomyopathy and not able to continue with the chemotherapy. He recently had a PET scan which showed progression of disease with increased adenopathy in the thorax and abdomen. He was started on first cycle of Rituxan and bendamustine on 12/15/2017. He also received a Neulasta injection. He went to see Dr. Nunez this morning and he was complaining of having increased shortness of breath. Echocardiogram was done which reportedly showed a large pericardial effusion and possible cardiac tamponade. There was also mention of possible cardiac mass. He was told to come to the emergency room. CT surgery was consulted and the patient just had a pericardial window placement. He is still very sleepy after surgery. He denies any chest pain. He has been having some left shoulder pain. He denies any fever or chills. He denies any cough. He denies any nausea, vomiting or abdominal pain. He denies any significant side effects from the chemotherapy. PAST MEDICAL HISTORY: 1. High grade B cell lymphoma. 2. Hypertension. 3. Pulmonary embolism. 4. Renal failure. 5. Bacterial endocarditis. 6. Cardiomyopathy. 7. Pleural effusion. 8. Infected port. 9. History of MRSA. 10. History of C. difficile colitis. PAST SURGICAL HISTORY: 1. Port placement, bone marrow biopsy. 2. Left axillary lymph node resection. FAMILY HISTORY: He has 5 brothers and 3 sisters. No cancer in the family. SOCIAL HISTORY: He stopped smoking around June 2017. He also stopped drinking alcohol. He lives with his mother. ALLERGIES: NO KNOWN DRUG ALLERGIES. OUTPATIENT MEDICATIONS: 1. Coumadin. 2. Lisinopril. 3. Metoprolol. 4. Allopurinol. 5. Protonix. 6. Procardia. 7. Losartan. REVIEW OF SYSTEMS: CONSTITUTIONAL: He has weight loss. Denies increased fatigue. EYES: Negative. ENT: Negative. CARDIOVASCULAR: As stated above. RESPIRATORY: As above. GASTROINTESTINAL: Negative. GENITOURINARY: Negative. MUSCULOSKELETAL: Negative. HEMATOLOGY: As above. ENDOCRINE: Negative. DERMATOLOGY: Negative. PSYCHIATRIC: Negative. IMMUNOLOGIC: Negative. PHYSICAL EXAMINATION: VITAL SIGNS: Temperature 97.1, blood pressure 117/81, O2 saturation 100% on 2 liters nasal cannula. GENERAL: He is alert, oriented x 3, in no acute distress, looks cachectic. He is sleepy. HEENT: Atraumatic, normocephalic. Pupils are equal, round, reactive to light. Extraocular muscles are intact. No scleral icterus. Oropharynx, dry mucosa. No lesion. No thrush, mucositis. NECK: No thyromegaly. No palpable mass. LYMPHATIC: No palpable cervical, clavicular, axillary or inguinal lymph nodes. CARDIOVASCULAR: Regular S1, S2. Occasional skipped beat. LUNGS: Clear to auscultation anteriorly. ABDOMEN: Soft, nontender. Could not palpate liver or spleen. EXTREMITIES: No cyanosis, no clubbing, no edema. BACK: No paravertebral tenderness. SKIN: No rash. NEUROLOGIC: Exam nonfocal. LABORATORY DATA: WBC 12.6, hemoglobin 11.1, platelet count 333, creatinine 1.36. ASSESSMENT: 1. 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 He has a very high risk lymphoma. The patient, however, refused bone marrow transplant. He received 5 cycles of Rituxan with EPOCH with partial response. Chemotherapy unfortunately had to stop because he developed sepsis and bacterial endocarditis. He subsequently developed severe cardiomyopathy with ejection fraction around 25% and not able to continue with the chemotherapy. He developed progression of disease recently. A PET scan showed increased adenopathy in the mediastinum, extended along the paraspinous region down to the abdomen. There was also uptake in the GE junction area down to the angel hepatis. There was also scattered retroperitoneal adenopathy and a few pulmonary nodules. He received first cycle of Rituxan and bendamustine December 15. He also received Neulasta injection. He tolerated chemotherapy quite well. His blood count has not trended down significantly. It is too early to assess response. A CT scan on admission still showed a bulky lymph node in subcarinal area. We will continue to monitor him closely as his blood count could trend lower. 2. Pericardial effusion. He saw Dr. Stack this morning. An echocardiogram showed a large pericardial effusion with possible cardiac tamponade. There was also mention of possible cardiac mass. He was admitted to the hospital and Dr. Jamil did a subxiphoid pericardial window, 250 mL of hemorrhagic effusion was evacuated. Cytology and cultures are pending. Continue to monitor him. 3. Cardiomyopathy which developed after bacterial endocarditis. 4. Recent history of bacterial endocarditis. 5. History of pulmonary embolism. He was on Coumadin, but his INR is subtherapeutic. 6. History of pleural effusion. A CT again showed small right pleural effusion. He has no significant symptoms at this time. PLAN: 1. Monitor CBC. 2. Continue supportive care. 3. Discussed case with Dr. Jamil. Thank you Dr. Leggett for asking me to see this patient. Ruslan Connelly MD [facility] , 04:41 PM , 05:27 PM RAVINDRA
[2017-12-31] MEDS: NIFEdipine 90 MG SUSTAINED RELEASE TAB PO SCH (09:00)
[2017-12-31] MEDS: DOCUSATE SODIUM 50 MG/SENNA 8.6 MG TAB PO SCH ×2 (09:00→20:53)
[2017-12-31] MEDS: SODIUM CHLORIDE 0.9% FLUSH 10 ML FLUSH IV FLUSH SCH ×2 (09:00→20:57)
[2017-12-31] MEDS: METOPROLOL TARTRATE 25 MG TAB PO SCH ×2 (09:00→20:53)
[2017-12-31] MEDS: SACUBITRIL/VALSARTAN 24 MG-26 MG TAB PO SCH ×2 (09:00→20:52)
[2017-12-31] MEDS ORDERED: PANTOPRAZOLE SOD 40 MG DELAYED RELEASE TAB PO SCH (09:00)
[2017-12-31] MEDS ORDERED: LISINOPRIL 5 MG TAB PO SCH (09:00)
--- NOTE | 2017-12-31 09:20 | HHI.PR ---
Subjective Remarks Patient is a 47-year-old -[place] male who was sent in by Dr. MCMAHON for pericardial effusion broaching on pericardial tamponade. Patient has a known history of non-Hodgkin's lymphoma by Dr. MAYORGA of oncology. Patient states he had chemotherapy a couple weeks ago. 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 And Dr. MCMAHON stated that patient had significant pericardial effusion with a mass and worsening tamponade is approaching. Patient states he is only having some mild shortness of breath denies any chest pain he states this is been going on for the past few days and gradually worsening patient will therefore be admitted will consult cardiovascular surgery and medical oncology. 12-31 patient is status post pericardial window with drain States he is breathing better Discussed with RN and patient A.m. labs Increase activity physical therapy and Occupational Therapy Objective Vitals Vital Signs Date Time Temp Pulse Resp B/P (MAP) Pulse Ox O2 Delivery O2 Flow Rate FiO2 12/31/17 08:00 84 12/31/17 08:00 97.9 86 18 87/70 (76) 97 12/31/17 07:00 84 12/31/17 06:00 84 12/31/17 05:00 88 12/31/17 04:00 84 12/31/17 03:32 98.4 84 16 91/67 (75) 96 12/31/17 03:00 84 12/31/17 02:00 82 12/31/17 01:00 82 12/31/17 00:00 84 12/30/17 23:00 86 12/30/17 23:00 98.3 83 16 100/74 (83) 97 12/30/17 22:00 90 12/30/17 21:00 92 12/30/17 20:00 97.8 81 16 105/70 (82) 93 12/30/17 20:00 88 12/30/17 19:00 92 12/30/17 17:50 92 16 98 Nasal Cannula 2 12/30/17 17:45 98.2 90 16 106/82 (90) 98 Nasal Cannula 2 12/30/17 17:30 91 16 109/81 (90) 97 Nasal Cannula 2 12/30/17 17:15 90 16 116/84 (95) 97 Nasal Cannula 2 12/30/17 17:00 92 16 118/85 (96) 96 Nasal Cannula 2 12/30/17 16:45 93 16 120/87 (98) 100 Nasal Cannula 3 12/30/17 16:30 97 16 130/89 (103) 99 Nasal Cannula 3 12/30/17 16:15 102 16 132/85 (101) 100 Nasal Cannula 4 12/30/17 16:10 98.8 109 20 131/87 (102) 97 Nasal Cannula 4 12/30/17 14:48 12/30/17 13:29 91 17 117/81 (93) 100 12/30/17 10:03 62 22 120/83 (95) 100 Room Air 12/30/17 10:00 99 Room Air 12/30/17 09:58 87 16 120/83 (95) 98 Room Air I/O 12/30/17 12/30/17 12/30/17 12/31/17 12/31/17 12/31/17 07:00 15:00 23:00 07:00 15:00 23:00 Intake Total 480 ml Output Total 400 ml 550 ml Balance -400 ml -70 ml Intake Oral 480 ml Output Urine Total 400 ml 500 ml Chest Tube Drainage Total 50 ml Result Diagram: 12/31/17 0325 12/31/17 0325 Other Results Laboratory Tests Test 12/30/17 09:39 12/30/17 21:15 12/31/17 03:25 White Blood Count 12.6 TH/MM3 7.3 TH/MM3 Red Blood Count 4.14 MIL/MM3 4.06 MIL/MM3 Hemoglobin 11.1 GM/DL 10.9 GM/DL Hematocrit 34.8 % 33.2 % Mean Corpuscular Volume 83.9 FL 81.6 FL Mean Corpuscular Hemoglobin 26.9 PG 26.8 PG Mean Corpuscular Hemoglobin Concent 32.0 % 32.8 % Red Cell Distribution Width 19.1 % 19.0 % Platelet Count 333 TH/MM3 332 TH/MM3 Mean Platelet Volume 7.9 FL 8.1 FL Neutrophils (%) (Auto) 91.2 % 86.7 % Lymphocytes (%) (Auto) 2.1 % 3.0 % Monocytes (%) (Auto) 4.6 % 6.3 % Eosinophils (%) (Auto) 1.5 % 3.2 % Basophils (%) (Auto) 0.6 % 0.8 % Neutrophils # (Auto) 11.5 TH/MM3 6.3 TH/MM3 Lymphocytes # (Auto) 0.3 TH/MM3 0.2 TH/MM3 Monocytes # (Auto) 0.6 TH/MM3 0.5 TH/MM3 Eosinophils # (Auto) 0.2 TH/MM3 0.2 TH/MM3 Basophils # (Auto) 0.1 TH/MM3 0.1 TH/MM3 CBC Comment DIFF FINAL DIFF FINAL Differential Comment Prothrombin Time 12.8 SEC 14.3 SEC Prothromb Time International Ratio 1.3 RATIO 1.4 RATIO Activated Partial Thromboplast Time 30.4 SEC Blood Urea Nitrogen 10 MG/DL 11 MG/DL Creatinine 1.36 MG/DL 1.47 MG/DL Random Glucose 89 MG/DL 84 MG/DL Calcium Level 8.9 MG/DL 8.4 MG/DL Sodium Level 138 MEQ/L 139 MEQ/L Potassium Level 3.5 MEQ/L 3.6 MEQ/L Chloride Level 104 MEQ/L 105 MEQ/L Carbon Dioxide Level 22.1 MEQ/L 22.3 MEQ/L Anion Gap 12 MEQ/L 12 MEQ/L Estimat Glomerular Filtration Rate 68 ML/MIN 62 ML/MIN Total Creatine Kinase 42 U/L 58 U/L 52 U/L Troponin I 0.90 NG/ML 1.06 NG/ML 0.79 NG/ML Total Protein 6.0 GM/DL Albumin 2.3 GM/DL Phosphorus Level 3.2 MG/DL Magnesium Level 1.4 MG/DL Alkaline Phosphatase 150 U/L Aspartate Amino Transf (AST/SGOT) 12 U/L Alanine Aminotransferase (ALT/SGPT) LESS THAN 6 U/L Total Bilirubin 0.2 MG/DL Free Thyroxine 1.66 NG/DL Thyroid Stimulating Hormone 3rd Gen 6.840 uIU/ML Imaging Last Impressions Chest X-Ray 12/31/17 0500 Signed Impressions: Service Date/Time: December 05:00 - CONCLUSION: Stable right pleural effusion and patchy left lower lobe infiltrates. Bryon Evans MD Chest CT 12/30/17 0000 Signed Impressions: Service Date/Time: Saturday, December 30, 2017 11:28 - CONCLUSION: Small right pleural effusion with cardiomegaly and trace pericardial effusion Extensive subcarinal adenopathy. Repeat CT scan with contrast would be of benefit. Kirk Briceño MD FACR Objective Remarks GENERAL: Awake alert and oriented 3 talkative and cooperative appears to be more comfortable today than yesterday SKIN: Warm and dry. HEAD: Atraumatic. Normocephalic. EYES: Pupils equal and round. No scleral icterus. No injection or drainage. Extraocular muscles intact ENT: No nasal bleeding or discharge. Mucous membranes pink and moist. Tongue is midline NECK: Trachea midline. No JVD. Supple CARDIOVASCULAR: Regular rate and rhythm. S1-S2 no S3 or S4 has a subxiphoid drain in place RESPIRATORY: No accessory muscle use. Clear to auscultation. Breath sounds equal bilaterally. GASTROINTESTINAL: Abdomen soft, non-tender, nondistended. Hepatic and splenic margins not palpable. Subxiphoid drain in place MUSCULOSKELETAL: Extremities without clubbing, cyanosis, or edema. No obvious deformities. NEUROLOGICAL: Awake and alert. No obvious cranial nerve deficits. Motor grossly within normal limits. 4 out of 5 muscle strength in the arms and legs. Normal speech. PSYCHIATRIC: Appropriate mood and affect; insight and judgment normal. Procedures Operative Report Date of Surgery: Dec 30, 2017 Preoperative Diagnosis: Postoperative Diagnosis: Procedure: 1. Emergent Subxiphoid Pericardial Window. 2. Drainage of Pericardial Effusion. 3. Pericardial Biopsy Surgeon: Aye Jamil General Farm Manager(s): Giovani Elam Operation and Findings: PREOPERATIVE DIAGNOSES 1. Moderate Pericardial Effusion . 2. Non-Hodgkin's Lymphoma 3. Early Tamponade Physiology POSTOPERATIVE DIAGNOSES Same PROCEDURE 1. Emergent Subxiphoid Pericardial Window. 2. Drainage of Pericardial Effusion. 3. Pericardial Biopsy CARPENTER REPAIRER Emily Elam PA-C ANESTHESIA General endotracheal. ANESTHETISTS MEL Kim MD PREPARATION ChloraPrep. NEEDLE, SPONGE, AND INSTRUMENT COUNTS Correct. DRAINS One 28-[place] Citizen pericardial tube. COMPLICATIONS None. INDICATIONS The patient is a 47 year-old with Lymphoma presenting with shortness of breath and a large pericardial effusion. The patient is being brought to the operating room for emergent drainage procedure. DESCRIPTION OF PROCEDURE The patient was brought to the operating room and placed supine on the OR table. Following the induction of adequate general endotracheal anesthesia and placement of appropriate monitoring devices, the chest and abdomen were then prepped and draped in a standard sterile fashion. Through an approximately 3 cm subxiphoid incision, the incision was carried down to the level of the endothoracic fascia which was divided, and the xiphoid process lifted off the pericardium. The prepericardial fat was dissected free, and the anterior surface of the pericardium identified. A longitudinal pericardiotomy was performed and enlarged horizontally to create a big hole. 250 mls of hemorrhagic effusion was evacuated and sent for microbiologic and cytologic analysis. A pericardial biopsy was also obtained and sent for histologic analysis. Echocardiographic confirmation of complete evacuation of all pericardial effusion was made.Strict hemostasis was assured. A 28[place] Citizen chest tube was then placed into the pericardial space and exited through a separate stab wound. Incision was anesthetized with 0.5% Marcaine with epinephrine and the incision closed in 3 layers. Dermabond and sterile dressing were applied. The patient was transferred to ICU in stable condition. Aye Jamil MD Dec 30, 2017 16:05 <Electronically signed by Aye Jamil MD> 12/30/17 1605 Medications and IVs Current Medications Furosemide (Lasix Inj) 40 mg ONCE ONCE IV PUSH Last administered on 12/30/17at 13:30; Start 12/30/17 at 12:45; Stop 12/30/17 at 12:46; Status DC Allopurinol (Zyloprim) 300 mg DAILY PO ; Start 12/31/17 at 09:00 Calcium Carbonate (Oscal) 1,500 mg DAILY PO ; Start 12/31/17 at 09:00 Lisinopril (Prinivil) 5 mg DAILY PO ; Start 12/31/17 at 09:00; Stop 12/31/17 at 09:00; Status DC Metoprolol Tartrate (Lopressor) 12.5 mg BID PO Last administered on 12/30/17at 21:45; Start 12/30/17 at 21:00 Nifedipine (Procardia Xl) 90 mg DAILY PO ; Start 12/31/17 at 09:00 Pantoprazole Sodium (Protonix) 40 mg DAILY PO ; Start 12/31/17 at 09:00; Stop at 09:00; Status DC Sacubitril/ Valsartan (Entresto 24-26 Mg) 1 tab BID PO Last administered on at 23:05; Start 12/30/17 at 21:00 Sodium Chloride 1,000 ml @ 100 mls/hr Q10H IV Last administered on 12/30/17at 21:46; Start 12/30/17 at 13:29 Sodium Chloride (NS Flush) 2 ml UNSCH PRN IV FLUSH FLUSH AFTER USING IV ACCESS ; Start 12/30/17 at 13:30; Stop 12/30/17 at 15:54; Status DC Sodium Chloride (NS Flush) 2 ml BID IV FLUSH ; Start 12/30/17 at 21:00; Stop at 21:00; Status DC Acetaminophen (Tylenol) 650 mg Q4H PRN PO TEMP > 100.4; Start 12/30/17 at 13:30 ; Stop 12/30/17 at 15:58; Status DC Ondansetron HCl (Zofran Inj) 4 mg Q6H PRN IVP NAUSEA OR VOMITING; Start at 13:30; Stop 12/30/17 at 15:59; Status DC Metoclopramide HCl (Reglan Inj) 5 mg Q6H PRN IV PUSH NAUSEA OR VOMITING; Start 12/30/17 at 13:30 Temazepam (Restoril) 15 mg HS PRN PO INSOMNIA; Start 12/30/17 at 13:30 Acetaminophen (Tylenol) 650 mg Q6H PRN PO PAIN SCALE 1 TO 2; Start 12/30/17 at 13:30 Oxycodone/ Acetaminophen (Percocet 10-325 Mg) 1 tab Q6H PRN PO PAIN SCALE 6 TO 10; Start 12/30/17 at 13:30 Morphine Sulfate (Morphine Inj) 2 mg Q3H PRN IV PUSH Pain 3-5; if unable to take PO Last administered on 12/30/17at 13:54; Start 12/30/17 at 13:30 Morphine Sulfate (Morphine Inj) 4 mg Q3H PRN IV PUSH Pain 6-10;if unable to take PO; Start 12/30/17 at 13:30 Morphine Sulfate (Morphine Inj) 4 mg Q3H PRN IV PUSH BREAKTHROUGH PAIN; Start 12/30/17 at 13:30 Oxycodone HCl (Roxicodone) 5 mg Q4H PRN PO PAIN SCALE 3 TO 5; Start 12/30/17 at 13:30 Naloxone HCl (Narcan Inj) 0.4 mg UNSCH PRN IV PUSH SEE LABEL COMMENTS; Start at 13:30 Senna/Docusate Sodium (Porsha-Colace) 1 tab BID PO ; Start 12/30/17 at 21:00 Magnesium Hydroxide (Milk Of Magnesia Liq) 30 ml Q12H PRN PO Mild constipation ; Start 12/30/17 at 13:30; Stop 12/30/17 at 15:54; Status DC Sennosides (Senokot) 17.2 mg Q12H PRN PO Moderate constipation; Start 12/30/17 at 13:30 Bisacodyl (Dulcolax Supp) 10 mg DAILY PRN RECTAL SEVERE CONSITIPATION; Start at 13:30 Lactulose (Lactulose Liq) 30 ml DAILY PRN PO SEVERE CONSITIPATION; Start at 13:30 Bupivacaine HCl (Marcaine Pf 0.5% Inj) 30 ml STK-MED ONCE .ROUTE Last administered on 12/30/17at 14:35; Start 12/30/17 at 14:35; Stop 12/30/17 at 14:36 ; Status DC Cefazolin Sodium/ Dextrose 50 ml @ As Directed STK-MED ONCE .ROUTE Last administered on 12/30/17at 15:10; Start 12/30/17 at 14:35; Stop 12/30/17 at 14:36 ; Status DC Etomidate (Amidate Inj) 20 mg STK-MED ONCE .ROUTE ; Start 12/30/17 at 14:44; Stop 12/30/17 at 14:45; Status DC Sugammadex Sodium (Bridion Inj) 200 mg STK-MED ONCE IV PUSH ; Start 12/30/17 at 14:45; Stop 12/30/17 at 14:46; Status DC Rocuronium [place] (Zemuron Inj) 50 mg STK-MED ONCE IV PUSH ; Start 12/30/17 at 14:45; Stop 12/30/17 at 14:46; Status DC Ondansetron HCl (Zofran Inj) 4 mg STK-MED ONCE .ROUTE ; Start 12/30/17 at 15:46 ; Stop 12/30/17 at 15:47; Status DC Sodium Chloride (NS Flush) 2 ml BID IV FLUSH Last administered on 12/30/17at 21: 45; Start 12/30/17 at 21:00 Sodium Chloride (NS Flush) 2 ml UNSCH PRN IV FLUSH FLUSH AFTER USING IV ACCESS ; Start 12/30/17 at 16:00 Miscellaneous Information (Post-op Orders (for Pharmacy)) STAT ONCE OTHER ; Start 12/30/17 at 16:00; Stop 12/30/17 at 16:01; Status DC Cefazolin Sodium 1000 mg/Sodium Chloride 100 ml @ 200 mls/hr Q8H IV Last administered on 12/31/17at 05:02; Start 12/30/17 at 22:00; Stop 12/31/17 at 14:29 Pantoprazole Sodium (Protonix) 40 mg HS PO Last administered on 12/30/17at 21:43 ; Start 12/30/17 at 21:00 Ondansetron HCl (Zofran Inj) 4 mg Q6H PRN IV PUSH NAUSEA OR VOMITING; Start at 16:00 Docusate Calcium (Surfak) 240 mg HS PO ; Start 12/30/17 at 21:00 Magnesium Hydroxide (Milk Of Magnesia Liq) 30 ml DAILY PRN PO CONSTIPATION; Start 12/30/17 at 16:00 Acetaminophen (Tylenol) 650 mg Q4H PRN PO TEMPERATURE > 101 F; Start 12/30/17 at 16:00 Acetaminophen/ Hydrocodone Bitart ([place] 5-325 Mg) 1 tab Q3H PRN PO PAIN SCALE 3 TO 5; Start 12/30/17 at 16:00 Ketorolac Tromethamine (Toradol Inj) 15 mg Q6H IV PUSH Last administered on at 05:01; Start 12/30/17 at 16:00; Stop 12/31/17 at 10:01 Fentanyl Citrate (fentaNYL INJ) 500 mcg STK-MED ONCE .ROUTE ; Start 12/30/17 at 16:21; Stop 12/30/17 at 16:22; Status DC Miscellaneous Information ALL NURSING DEPARTME... UNSCH PRN .XX SEE LABEL COMMENTS; Start 12/30/17 at 16:14; Stop 12/31/17 at 16:13 A/P Problem List: (1) Diffuse large B cell lymphoma ICD Code: C83.30 - Diffuse large B-cell lymphoma, unspecified site (2) Heart failure ICD Code: I50.9 - Heart failure, unspecified (3) Pulmonary emboli ICD Code: I26.99 - Other pulmonary embolism without acute cor pulmonale Status: Chronic (4) Severe protein-calorie malnutrition ICD Code: E43 - Unspecified severe protein-calorie malnutrition (5) Hypertension ICD Code: I10 - Essential (primary) hypertension (6) Debility ICD Code: R53.81 - Other malaise Status: Acute (7) Non-Hodgkin lymphoma ICD Code: C85.90 - Non-Hodgkin lymphoma, unspecified, unspecified site Status: Acute (8) Shortness of breath ICD Code: R06.02 - Shortness of breath Status: Acute (9) Pericardial effusion without cardiac tamponade ICD Code: I31.3 - Pericardial effusion (noninflammatory) (10) Pleural effusion ICD Code: J90 - Pleural effusion, not elsewhere classified Status: Resolved Assessment and Plan Pericardial effusion close to cardiac tamponade consult cardiovascular surgery as well as oncology We will give Lasix UNDERWENT PERICARDIAL WINDOW ON 12-30 WITH [facility] Hypertension continue on home medications GERD continue on Protonix Gout due to issues with non-Hodgkin's lymphoma continue on allopurinol Chronic Coumadin for pulmonary emboli daily PT/INR- WILL DEFER UNTIL CLEARED BY SURGERY TO RESTART Consult oncology SEEN BY DR MAYORGA consult cardiovascular surgery Positive troponins Trend troponin Consult cardiology SEEN BY DR SOLIS RENAL INSUFFICIENCY MONITOR Discharge Planning Ending clearance by cardiovascular surgery and cardiology and oncology Kirk Long DO Dec 31, 2017 09:20
[2017-12-31] MEDS: SODIUM CHLOR 0.9% 1000 ML INJ 1,000 ML IV SCH ×2 (09:29→20:56)
[2017-12-31] MEDS: ALLOPURINOL 300 MG TAB PO SCH (09:58)
[2017-12-31] MEDS: CALCIUM CARBONATE 1.25 GM (CA 500 MG) TAB PO SCH (09:59)
--- NOTE | 2017-12-31 13:30 | PD.CARD.PN ---
Subjective Subjective Remarks No CP or SOB, feels better Objective Medications Current Medications Medications (Trade) Dose Ordered Sig/Shyla Route Start Time Stop Time Status Last Admin (Zyloprim) 300 mg DAILY PO 12/31/17 09:00 12/31/17 09:58 (Oscal) 1,500 mg DAILY PO 12/31/17 09:00 12/31/17 09:59 (Lopressor) 12.5 mg BID PO 12/30/17 21:00 12/30/17 21:45 (Procardia Xl) 90 mg DAILY PO 12/31/17 09:00 (Entresto 24-26 Mg) 1 tab BID PO 12/30/17 21:00 12/30/17 23:05 Sodium Chloride 1,000 ml @ 100 mls/hr Q10H IV 12/30/17 13:29 12/31/17 09:29 (Reglan Inj) 5 mg Q6H PRN IV PUSH 12/30/17 13:30 (Restoril) 15 mg HS PRN PO 12/30/17 13:30 (Tylenol) 650 mg Q6H PRN PO 12/30/17 13:30 (Percocet 10-325 Mg) 1 tab Q6H PRN PO 12/30/17 13:30 (Morphine Inj) 2 mg Q3H PRN IV PUSH 12/30/17 13:30 12/30/17 13:54 (Morphine Inj) 4 mg Q3H PRN IV PUSH 12/30/17 13:30 (Morphine Inj) 4 mg Q3H PRN IV PUSH 12/30/17 13:30 (Roxicodone) 5 mg Q4H PRN PO 12/30/17 13:30 (Narcan Inj) 0.4 mg UNSCH PRN IV PUSH 12/30/17 13:30 (Porsha-Colace) 1 tab BID PO 12/30/17 21:00 (Senokot) 17.2 mg Q12H PRN PO 12/30/17 13:30 (Dulcolax Supp) 10 mg DAILY PRN RECTAL 12/30/17 13:30 (Lactulose Liq) 30 ml DAILY PRN PO 12/30/17 13:30 (NS Flush) 2 ml BID IV FLUSH 12/30/17 21:00 12/31/17 09:00 (NS Flush) 2 ml UNSCH PRN IV FLUSH 3/21/18 16:00 Cefazolin Sodium 1000 mg/Sodium Chloride 100 ml @ 200 mls/hr Q8H IV 12/30/17 22:00 12/31/17 14:29 12/31/17 05:02 (Protonix) 40 mg HS PO 12/30/17 21:00 12/30/17 21:43 (Zofran Inj) 4 mg Q6H PRN IV PUSH 12/30/17 16:00 (Surfak) 240 mg HS PO 12/30/17 21:00 (Milk Of Magnesia Liq) 30 ml DAILY PRN PO 12/30/17 16:00 (Tylenol) 650 mg Q4H PRN PO 12/30/17 16:00 ([place] 5-325 Mg) 1 tab Q3H PRN PO 12/30/17 16:00 Miscellaneous Information ALL NURSING DEPARTME... UNSCH PRN .XX 12/30/17 16:14 12/31/17 16:13 Vital Signs / I&O Vital Signs Date Time Temp Pulse Resp B/P (MAP) Pulse Ox O2 Delivery O2 Flow Rate FiO2 12/31/17 12:00 86 12/31/17 11:58 98.0 86 18 92/68 (76) 97 12/31/17 11:00 90 12/31/17 10:59 20 12/31/17 10:00 86 12/31/17 09:00 86 12/31/17 08:00 84 12/31/17 08:00 97.9 86 18 87/70 (76) 97 12/31/17 07:57 92 21 12/31/17 07:00 84 12/31/17 06:00 84 12/31/17 05:00 88 12/31/17 04:00 84 12/31/17 03:32 98.4 84 16 91/67 (75) 96 12/31/17 03:00 84 12/31/17 02:00 82 12/31/17 01:00 82 12/31/17 00:00 84 12/30/17 23:00 86 12/30/17 23:00 98.3 83 16 100/74 (83) 97 12/30/17 22:00 90 12/30/17 21:00 92 12/30/17 20:00 97.8 81 16 105/70 (82) 93 12/30/17 20:00 88 12/30/17 19:00 92 12/30/17 17:50 92 16 98 Nasal Cannula 2 12/30/17 17:45 98.2 90 16 106/82 (90) 98 Nasal Cannula 2 12/30/17 17:30 91 16 109/81 (90) 97 Nasal Cannula 2 12/30/17 17:15 90 16 116/84 (95) 97 Nasal Cannula 2 12/30/17 17:00 92 16 118/85 (96) 96 Nasal Cannula 2 12/30/17 16:45 93 16 120/87 (98) 100 Nasal Cannula 3 12/30/17 16:30 97 16 130/89 (103) 99 Nasal Cannula 3 12/30/17 16:15 102 16 132/85 (101) 100 Nasal Cannula 4 12/30/17 16:10 98.8 109 20 131/87 (102) 97 Nasal Cannula 4 12/30/17 14:48 12/30/17 13:29 91 17 117/81 (93) 100 I/O 12/30/17 12/30/17 12/30/17 12/31/17 12/31/17 12/31/17 06:59 14:59 22:59 06:59 14:59 22:59 Intake Total 480 ml Output Total 400 ml 550 ml Balance -400 ml -70 ml Intake Oral 480 ml Output Urine Total 400 ml 500 ml Chest Tube Drainage Total 50 ml Physical Exam GENERAL: In NAD. SKIN: Warm and dry. HEAD: Normocephalic. EYES: No scleral icterus. No injection or drainage. NECK: Supple, trachea midline. No JVD or lymphadenopathy. CARDIOVASCULAR: Regular rate and rhythm without murmurs, gallops, or rubs. RESPIRATORY: Breath sounds equal bilaterally. No accessory muscle use. GASTROINTESTINAL: Abdomen soft, non-tender, nondistended. MUSCULOSKELETAL: No cyanosis, or edema. Laboratory Laboratory Tests Test 12/30/17 21:15 12/31/17 03:25 Total Creatine Kinase 58 U/L 52 U/L Troponin I 1.06 NG/ML 0.79 NG/ML White Blood Count 7.3 TH/MM3 Red Blood Count 4.06 MIL/MM3 Hemoglobin 10.9 GM/DL Hematocrit 33.2 % Mean Corpuscular Volume 81.6 FL Mean Corpuscular Hemoglobin 26.8 PG Mean Corpuscular Hemoglobin Concent 32.8 % Red Cell Distribution Width 19.0 % Platelet Count 332 TH/MM3 Mean Platelet Volume 8.1 FL Neutrophils (%) (Auto) 86.7 % Lymphocytes (%) (Auto) 3.0 % Monocytes (%) (Auto) 6.3 % Eosinophils (%) (Auto) 3.2 % Basophils (%) (Auto) 0.8 % Neutrophils # (Auto) 6.3 TH/MM3 Lymphocytes # (Auto) 0.2 TH/MM3 Monocytes # (Auto) 0.5 TH/MM3 Eosinophils # (Auto) 0.2 TH/MM3 Basophils # (Auto) 0.1 TH/MM3 CBC Comment DIFF FINAL Differential Comment Prothrombin Time 14.3 SEC Prothromb Time International Ratio 1.4 RATIO Blood Urea Nitrogen 11 MG/DL Creatinine 1.47 MG/DL Random Glucose 84 MG/DL Total Protein 6.0 GM/DL Albumin 2.3 GM/DL Calcium Level 8.4 MG/DL Phosphorus Level 3.2 MG/DL Magnesium Level 1.4 MG/DL Alkaline Phosphatase 150 U/L Aspartate Amino Transf (AST/SGOT) 12 U/L Alanine Aminotransferase (ALT/SGPT) LESS THAN 6 U/L Total Bilirubin 0.2 MG/DL Sodium Level 139 MEQ/L Potassium Level 3.6 MEQ/L Chloride Level 105 MEQ/L Carbon Dioxide Level 22.3 MEQ/L Anion Gap 12 MEQ/L Estimat Glomerular Filtration Rate 62 ML/MIN Free Thyroxine 1.66 NG/DL Thyroid Stimulating Hormone 3rd Gen 6.840 uIU/ML Imaging Last 24 hours Impressions Chest X-Ray 12/31/17 0500 Signed Impressions: Service Date/Time: December 05:00 - CONCLUSION: Stable right pleural effusion and patchy left lower lobe infiltrates. Bryon Evans MD Assessment and Plan Problem List: (1) Pericardial effusion without cardiac tamponade ICD Codes: I31.3 - Pericardial effusion (noninflammatory) (2) Elevated troponin ICD Codes: R74.8 - Abnormal levels of other serum enzymes (3) Diffuse large B cell lymphoma ICD Codes: C83.30 - Diffuse large B-cell lymphoma, unspecified site (4) Pleural effusion ICD Codes: J90 - Pleural effusion, not elsewhere classified Status: Resolved Assessment and Plan Improved after pericardial fluid surgical drainage. Await bx results. Mild troponin elevation; no angina or CHF at this time. Continue monitoring. F/u w Dr. Stack after discharge. Obtain records from Dr. Stack. Mayra Azul MD Dec 31, 2017 13:30
[2017-12-31] MEDS: oxyCODONE/ACETAMINOPHEN 10 MG/325 MG TAB PO PRN (13:56)
[2017-12-31 16:52] LABS: HEMOGLOBIN A1C 5.2 % (4.3-6.0)
--- NOTE | 2017-12-31 16:58 | PD.ONC.PN ---
Subjective Subjective Remarks Afebrile overnight Patient reports he is feeling much better since drainage of pericardial fluid Denies shortness of breath or chest pain Objective Data Date Time Temp Pulse Resp B/P (MAP) Pulse Ox O2 Delivery O2 Flow Rate FiO2 12/31/17 16:00 98.3 83 16 90/60 (70) 96 12/31/17 15:00 88 12/31/17 14:00 86 12/31/17 13:00 92 12/31/17 12:00 86 12/31/17 11:58 98.0 86 18 92/68 (76) 97 12/31/17 11:00 90 12/31/17 10:59 20 12/31/17 10:00 86 12/31/17 09:00 86 12/31/17 08:00 84 12/31/17 08:00 97.9 86 18 87/70 (76) 97 12/31/17 07:57 92 21 12/31/17 07:00 84 12/31/17 06:00 84 12/31/17 05:00 88 12/31/17 04:00 84 12/31/17 03:32 98.4 84 16 91/67 (75) 96 12/31/17 03:00 84 12/31/17 02:00 82 12/31/17 01:00 82 12/31/17 00:00 84 12/30/17 23:00 86 12/30/17 23:00 98.3 83 16 100/74 (83) 97 12/30/17 22:00 90 12/30/17 21:00 92 12/30/17 20:00 97.8 81 16 105/70 (82) 93 12/30/17 20:00 88 12/30/17 19:00 92 12/30/17 17:50 92 16 98 Nasal Cannula 2 12/30/17 17:45 98.2 90 16 106/82 (90) 98 Nasal Cannula 2 12/30/17 17:30 91 16 109/81 (90) 97 Nasal Cannula 2 12/30/17 17:15 90 16 116/84 (95) 97 Nasal Cannula 2 12/30/17 17:00 92 16 118/85 (96) 96 Nasal Cannula 2 12/31/17 12/31/17 12/31/17 07:00 15:00 23:00 Intake Total 480 ml 100 ml Output Total 550 ml Balance -70 ml 100 ml Result Diagram: 12/31/17 0325 12/31/17 0325 Laboratory Results Laboratory Tests Test 12/30/17 21:15 12/31/17 03:25 Total Creatine Kinase 58 U/L 52 U/L Troponin I 1.06 NG/ML 0.79 NG/ML White Blood Count 7.3 TH/MM3 Red Blood Count 4.06 MIL/MM3 Hemoglobin 10.9 GM/DL Hematocrit 33.2 % Mean Corpuscular Volume 81.6 FL Mean Corpuscular Hemoglobin 26.8 PG Mean Corpuscular Hemoglobin Concent 32.8 % Red Cell Distribution Width 19.0 % Platelet Count 332 TH/MM3 Mean Platelet Volume 8.1 FL Neutrophils (%) (Auto) 86.7 % Lymphocytes (%) (Auto) 3.0 % Monocytes (%) (Auto) 6.3 % Eosinophils (%) (Auto) 3.2 % Basophils (%) (Auto) 0.8 % Neutrophils # (Auto) 6.3 TH/MM3 Lymphocytes # (Auto) 0.2 TH/MM3 Monocytes # (Auto) 0.5 TH/MM3 Eosinophils # (Auto) 0.2 TH/MM3 Basophils # (Auto) 0.1 TH/MM3 CBC Comment DIFF FINAL Differential Comment Prothrombin Time 14.3 SEC Prothromb Time International Ratio 1.4 RATIO Blood Urea Nitrogen 11 MG/DL Creatinine 1.47 MG/DL Random Glucose 84 MG/DL Total Protein 6.0 GM/DL Albumin 2.3 GM/DL Calcium Level 8.4 MG/DL Phosphorus Level 3.2 MG/DL Magnesium Level 1.4 MG/DL Alkaline Phosphatase 150 U/L Aspartate Amino Transf (AST/SGOT) 12 U/L Alanine Aminotransferase (ALT/SGPT) LESS THAN 6 U/L Total Bilirubin 0.2 MG/DL Sodium Level 139 MEQ/L Potassium Level 3.6 MEQ/L Chloride Level 105 MEQ/L Carbon Dioxide Level 22.3 MEQ/L Anion Gap 12 MEQ/L Estimat Glomerular Filtration Rate 62 ML/MIN Free Thyroxine 1.66 NG/DL Thyroid Stimulating Hormone 3rd Gen 6.840 uIU/ML Culture Results Microbiology Date/Time Source Procedure Growth Status 12/30/17 15:33 Fluid Pericardial Fluid Fungal Smear - Final NO FUNGAL ELEMENTS SEEN. Resulted 12/30/17 15:33 Fluid Pericardial Fluid Fungal Culture Pending Resulted 12/30/17 15:33 Fluid Pericardial Fluid Acid Fast Stain Pending Received 12/30/17 15:33 Fluid Pericardial Fluid Mycobacterial Culture Pending Received 12/30/17 15:33 Fluid Pericardial Fluid Gram Stain - Final Resulted 12/30/17 15:33 Fluid Pericardial Fluid Body Fluid Culture - Preliminary NO GROWTH IN 24 HOURS. Resulted Imaging Studies Last 24 hours Impressions Chest X-Ray 12/31/17 0500 Signed Impressions: Service Date/Time: December 05:00 - CONCLUSION: Stable right pleural effusion and patchy left lower lobe infiltrates. Bryon Evans MD Administered Medications Medications (Trade) Dose Ordered Sig/Shyla Route PRN Reason Start Time Stop Time Status Last Admin Dose Admin Allopurinol (Zyloprim) 300 mg DAILY PO 12/31/17 09:00 12/31/17 09:58 Calcium Carbonate (Oscal) 1,500 mg DAILY PO 12/31/17 09:00 12/31/17 09:59 Metoprolol Tartrate (Lopressor) 12.5 mg BID PO 12/30/17 21:00 12/30/17 21:45 Sacubitril/ Valsartan (Entresto 24-26 Mg) 1 tab BID PO 12/30/17 21:00 12/30/17 23:05 Sodium Chloride 1,000 ml @ 100 mls/hr Q10H IV 12/30/17 13:29 12/31/17 09:29 Oxycodone/ Acetaminophen (Percocet 10-325 Mg) 1 tab Q6H PRN PO PAIN SCALE 6 TO 10 12/30/17 13:30 12/31/17 13:56 Morphine Sulfate (Morphine Inj) 2 mg Q3H PRN IV PUSH Pain 3-5; if unable to take PO 12/30/17 13:30 12/30/17 13:54 Sodium Chloride (NS Flush) 2 ml BID IV FLUSH 12/30/17 21:00 12/31/17 09:00 Pantoprazole Sodium (Protonix) 40 mg HS PO 12/30/17 21:00 12/30/17 21:43 Objective Remarks GENERAL: Thin middle-aged male resting in bed watching TV in no distress SKIN: Warm and dry. HEAD: Normocephalic. EYES: No scleral icterus. No injection or drainage. NECK: Supple, trachea midline. No JVD or lymphadenopathy. LYMPHATIC: No palpable adenopathy CARDIOVASCULAR: Regular rate and rhythm without murmurs. RESPIRATORY: Clear anteriorly. Breathing unlabored at rest. GASTROINTESTINAL: Abdomen soft, non-tender, nondistended. EXTREMITIES: No cyanosis, or edema. MUSCULOSKELETAL: Adequate muscle tone. NEUROLOGICAL: No obvious focal deficit. Awake, alert, and oriented x3. Assessment/Plan Problem List: (1) Diffuse large B cell lymphoma ICD Codes: C83.30 - Diffuse large B-cell lymphoma, unspecified site Plan: --We will hold future chemo until recovered from pericardial effusion --Await pathology from pericardial fluid Hx/Workup: Patient was originally diagnosed with triple hit non-Hodgkin's B- cell lymphoma in the summer 2016. He had extensive mediastinal, cervical and bilateral axillary adenopathy. He was started on cycle 1 of our CHOP chemotherapy with a reduced wrist at the time but developed sepsis with renal failure and was on dialysis. Once he recovered he was started on Rituxan and EPOCH 5 cycles. The patient had to stop chemotherapy due to bacterial endocarditis with significant cardiomyopathy. His most recent PET scan showed progression of disease. Most recently on December 15 he started a new chemotherapy consisting of Rituxan with bendamustine. (2) Pericardial effusion without cardiac tamponade ICD Codes: I31.3 - Pericardial effusion (noninflammatory) Plan: --Cardiology following --Chest tube at bedside for pericardial effusion Assessment 47-year-old male with history of diffuse large B-cell lymphoma admitted with pericardial effusion Plan 1. Monitor CBC 2. Supportive care Attending Statement The exam, history, and the medical decision-making described in the above note were completed with the assistance of the mid-level provider. I reviewed and agree with the findings presented. I attest that I had a [id number] encounter with the patient on the same day, and personally performed and documented my assessment and findings in the medical record. Late entry. Feels better. SOB has improved. Right supraclav LN still palpable. Cytology and pericardium biopsy pending. Monitor CBC. Continue supportive care. Tia Montenegro Dec 31, 2017 16:58 Ruslan Connelly MD Jan 01, 2018 07:10
--- NOTE | 2017-12-31 17:32 | PD.CAR.PN ---
CVT Progress Note Subjective/Hospital Course: Mr. Werner is a very pleasant 47-year-old, very frail appearing, gentleman with a known history of non-Hodgkin's lymphoma who is being treated by Dr. Connelly with chemotherapy, who now presents with gradual progressive symptoms of shortness of breath with some associated chest pressure. The patient was seen by Dr. Stack in his office and had an echocardiogram done which revealed significant pericardial effusion with tamponade physiology and he was sent to the Emergency Department for further management. In the ER, echocardiogram was done which revealed moderate pericardial effusion with no tamponade physiology; however, with significant stranding. surgery: 12/30/17 1. Emergent Subxiphoid Pericardial Window. 2. Drainage of Pericardial Effusion. 3. Pericardial Biopsy path pending 12/31 chest tube drained 60cc/ 12 hrs eval for removal in am Objective: GENERAL: A&O x 3 , very cachectic SKIN: Warm and dry. HEAD: Normocephalic. EYES: No scleral icterus. No injection or drainage. NECK: Supple, trachea midline. No JVD or lymphadenopathy. CARDIOVASCULAR: Regular rate and rhythm without murmurs, gallops, or rubs. pericardial drain in place RESPIRATORY: Breath sounds equal bilaterally. No accessory muscle use. GASTROINTESTINAL: Abdomen soft, non-tender, nondistended. MUSCULOSKELETAL: No cyanosis, or edema. BACK: Nontender without obvious deformity. No CVA tenderness. Vital Signs Date Time Temp Pulse Resp B/P (MAP) Pulse Ox O2 Delivery O2 Flow Rate FiO2 12/31/17 17:00 94 12/31/17 16:00 98.3 83 16 90/60 (70) 96 12/31/17 16:00 92 12/31/17 15:00 88 12/31/17 14:00 86 12/31/17 13:00 92 12/31/17 12:00 86 12/31/17 11:58 98.0 86 18 92/68 (76) 97 12/31/17 11:00 90 12/31/17 10:59 20 12/31/17 10:00 86 12/31/17 09:00 86 12/31/17 08:00 84 12/31/17 08:00 97.9 86 18 87/70 (76) 97 12/31/17 07:57 92 21 12/31/17 07:00 84 12/31/17 06:00 84 12/31/17 05:00 88 12/31/17 04:00 84 12/31/17 03:32 98.4 84 16 91/67 (75) 96 12/31/17 03:00 84 12/31/17 02:00 82 12/31/17 01:00 82 12/31/17 00:00 84 12/30/17 23:00 86 12/30/17 23:00 98.3 83 16 100/74 (83) 97 12/30/17 22:00 90 12/30/17 21:00 92 12/30/17 20:00 97.8 81 16 105/70 (82) 93 12/30/17 20:00 88 12/30/17 19:00 92 12/30/17 17:50 92 16 98 Nasal Cannula 2 12/30/17 17:45 98.2 90 16 106/82 (90) 98 Nasal Cannula 2 12/30/17 17:30 91 16 109/81 (90) 97 Nasal Cannula 2 Result Diagram: 12/31/17 0325 12/31/17 0325 (1) Pericardial effusion without cardiac tamponade Plan: s/p pericardial window leave drain in place today (2) Elevated troponin (3) Diffuse large B cell lymphoma (4) Pleural effusion (5) pericardial window Jessica Knight Dec 31, 2017 17:32
[2017-12-31] MEDS: DOCUSATE CALCIUM 240 MG CAP PO SCH (20:53)
[2017-12-31] MEDS: PANTOPRAZOLE SOD 40 MG DELAYED RELEASE TAB PO SCH (20:53)
[2018-01-01] VITALS (29 sets, daily range): BP systolic 76–114; BP diastolic 50–72; PULSE 83–97; RESP 16–20; TEMP 97.7–98.6; O2SAT 95–97
[2018-01-01 03:26] LABS: AUTOMATED NEUTROPHIL # 7.5 TH/MM3 (1.8-7.7); BASOPHIL # 0.1 TH/MM3 (0-0.2); BASOPHIL % 0.8 % (0.0-2.0); EOSINOPHIL # 0.2 TH/MM3 (0-0.4); EOSINOPHIL % 1.8 % (0.0-4.0); HEMATOCRIT 34.1 % (39.0-51.0); HEMOGLOBIN 10.9 GM/DL (13.0-17.0); LYMPH % 3.6 % (9.0-44.0); LYMPHOCYTE # 0.3 TH/MM3 (1.0-4.8); MEAN CELL VOLUME 82.7 FL (80.0-100.0); MEAN CORPUSCULAR HEMOGLOBIN 26.4 PG (27.0-34.0); MEAN PLATELET VOLUME 8.4 FL (7.0-11.0); MONO % 6.1 % (0.0-8.0); MONOCYTE # 0.5 TH/MM3 (0-0.9); NEUT % 87.7 % (16.0-70.0); PLATELET COUNT 356 TH/MM3 (150-450); RED BLOOD COUNT 4.13 MIL/MM3 (4.50-5.90); WHITE BLOOD COUNT 8.5 TH/MM3 (4.0-11.0)
[2018-01-01 03:37] LABS: INTERNATIONAL NORMALIZED RATIO 1.5 RATIO
[2018-01-01 04:16] LABS: ALBUMIN 1.8 GM/DL (3.4-5.0); ALKALINE PHOSPHATASE 122 U/L (45-117); ALT (GPT) LESS THAN 6 U/L (12-78); AST (GOT) 10 U/L (15-37); BICARBONATE 20.3 MEQ/L (21.0-32.0); BLOOD UREA NITROGEN 11 MG/DL (7-18); CALCIUM 7.5 MG/DL (8.5-10.1); CHLORIDE 108 MEQ/L (98-107); CREATININE 1.37 MG/DL (0.60-1.30); GLOMERULAR FILTRATION RATE 67 ML/MIN (>89); GLUCOSE,RANDOM 87 MG/DL (74-106); MAGNESIUM 1.3 MG/DL (1.5-2.5); PHOSPHORUS 2.3 MG/DL (2.5-4.9); SODIUM (NA) 140 MEQ/L (136-145); TOTAL BILIRUBIN ADULT 0.2 MG/DL (0.2-1.0); TOTAL PROTEIN 5.2 GM/DL (6.4-8.2)
[2018-01-01] MEDS: SODIUM CHLOR 0.9% 1000 ML INJ 1,000 ML IV SCH (04:56)
[2018-01-01] MEDS: METOPROLOL TARTRATE 25 MG TAB PO SCH ×2 (06:09→21:29)
[2018-01-01] MEDS: oxyCODONE/ACETAMINOPHEN 10 MG/325 MG TAB PO PRN (06:11)
--- NOTE | 2018-01-01 08:17 | PD.ONC.PN ---
Subjective Subjective Remarks Feels better. No CP. SOB improved. No significant output from chest tube. Objective Data Date Time Temp Pulse Resp B/P (MAP) Pulse Ox O2 Delivery O2 Flow Rate FiO2 01/01/18 07:00 94 01/01/18 06:44 20 01/01/18 06:00 92 01/01/18 05:09 20 01/01/18 05:00 90 01/01/18 04:00 94 01/01/18 03:49 97.7 93 20 96/67 (77) 96 01/01/18 03:00 92 01/01/18 02:00 94 01/01/18 01:00 94 01/01/18 00:00 96 12/31/17 23:46 97.1 93 20 94/62 (73) 95 12/31/17 23:00 90 12/31/17 22:00 90 12/31/17 21:00 92 12/31/17 20:24 97 12/31/17 20:00 97.9 89 20 96/57 (70) 98 12/31/17 20:00 92 12/31/17 19:00 92 12/31/17 18:00 88 12/31/17 17:00 94 12/31/17 16:00 98.3 83 16 90/60 (70) 96 12/31/17 16:00 92 12/31/17 15:00 88 12/31/17 14:00 86 12/31/17 13:00 92 12/31/17 12:00 86 12/31/17 11:58 98.0 86 18 92/68 (76) 97 12/31/17 11:00 90 12/31/17 10:59 20 12/31/17 10:00 86 12/31/17 09:00 86 01/01/18 01/01/18 01/01/18 07:00 15:00 23:00 Intake Total 320 ml Output Total 300 ml Balance 20 ml Result Diagram: 01/01/1824401/01/18244 Laboratory Results Laboratory Tests Test 01/01/18 02:45 White Blood Count 8.5 TH/MM3 Red Blood Count 4.13 MIL/MM3 Hemoglobin 10.9 GM/DL Hematocrit 34.1 % Mean Corpuscular Volume 82.7 FL Mean Corpuscular Hemoglobin 26.4 PG Mean Corpuscular Hemoglobin Concent 32.0 % Red Cell Distribution Width 19.0 % Platelet Count 356 TH/MM3 Mean Platelet Volume 8.4 FL Neutrophils (%) (Auto) 87.7 % Lymphocytes (%) (Auto) 3.6 % Monocytes (%) (Auto) 6.1 % Eosinophils (%) (Auto) 1.8 % Basophils (%) (Auto) 0.8 % Neutrophils # (Auto) 7.5 TH/MM3 Lymphocytes # (Auto) 0.3 TH/MM3 Monocytes # (Auto) 0.5 TH/MM3 Eosinophils # (Auto) 0.2 TH/MM3 Basophils # (Auto) 0.1 TH/MM3 CBC Comment DIFF FINAL Differential Comment Prothrombin Time 15.0 SEC Prothromb Time International Ratio 1.5 RATIO Blood Urea Nitrogen 11 MG/DL Creatinine 1.37 MG/DL Random Glucose 87 MG/DL Total Protein 5.2 GM/DL Albumin 1.8 GM/DL Calcium Level 7.5 MG/DL Phosphorus Level 2.3 MG/DL Magnesium Level 1.3 MG/DL Alkaline Phosphatase 122 U/L Aspartate Amino Transf (AST/SGOT) 10 U/L Alanine Aminotransferase (ALT/SGPT) LESS THAN 6 U/L Total Bilirubin 0.2 MG/DL Sodium Level 140 MEQ/L Potassium Level 3.9 MEQ/L Chloride Level 108 MEQ/L Carbon Dioxide Level 20.3 MEQ/L Anion Gap 12 MEQ/L Estimat Glomerular Filtration Rate 67 ML/MIN Culture Results Microbiology Date/Time Source Procedure Growth Status 12/30/17 15:33 Fluid Pericardial Fluid Fungal Smear - Final NO FUNGAL ELEMENTS SEEN. Resulted 12/30/17 15:33 Fluid Pericardial Fluid Fungal Culture Pending Resulted 12/30/17 15:33 Fluid Pericardial Fluid Acid Fast Stain Pending Received 12/30/17 15:33 Fluid Pericardial Fluid Mycobacterial Culture Pending Received 12/30/17 15:33 Fluid Pericardial Fluid Gram Stain - Final Resulted 12/30/17 15:33 Fluid Pericardial Fluid Body Fluid Culture - Preliminary NO GROWTH IN 48 HOURS. Resulted Administered Medications Medications (Trade) Dose Ordered Sig/Shyla Route PRN Reason Start Time Stop Time Status Last Admin Dose Admin Allopurinol (Zyloprim) 300 mg DAILY PO 12/31/17 09:00 12/31/17 09:58 Calcium Carbonate (Oscal) 1,500 mg DAILY PO 12/31/17 09:00 12/31/17 09:59 Sacubitril/ Valsartan (Entresto 24-26 Mg) 1 tab BID PO 12/30/17 21:00 12/31/17 20:52 Sodium Chloride 1,000 ml @ 100 mls/hr Q10H IV 12/30/17 13:29 01/01/18 04:56 Oxycodone/ Acetaminophen (Percocet 10-325 Mg) 1 tab Q6H PRN PO PAIN SCALE 6 TO 10 12/30/17 13:30 01/01/18 06:11 Morphine Sulfate (Morphine Inj) 2 mg Q3H PRN IV PUSH Pain 3-5; if unable to take PO 12/30/17 13:30 12/30/17 13:54 Morphine Sulfate (Morphine Inj) 4 mg Q3H PRN IV PUSH Pain 6-10;if unable to take PO 12/30/17 13:30 01/01/18 05:04 Sodium Chloride (NS Flush) 2 ml BID IV FLUSH 12/30/17 21:00 12/31/17 09:00 Pantoprazole Sodium (Protonix) 40 mg HS PO 12/30/17 21:00 12/31/17 20:53 Metoprolol Tartrate (Lopressor) 25 mg BID PO 01/01/18 05:45 01/01/18 06:09 Objective Remarks GENERAL: Well-nourished, well-developed patient. Thin SKIN: Warm and dry. HEAD: Normocephalic. EYES: No scleral icterus. No injection or drainage. NECK: Supple, trachea midline. No JVD or lymphadenopathy. LYMPHATIC: Right supraclav LN slightly smaller. CARDIOVASCULAR: Regular rate and rhythm without murmurs. Chest tube in place. RESPIRATORY: Breath sounds equal bilaterally. No accessory muscle use. GASTROINTESTINAL: Abdomen soft, non-tender, nondistended. EXTREMITIES: No cyanosis, or edema. SCD in place. MUSCULOSKELETAL: Adequate muscle tone. NEUROLOGICAL: No obvious focal deficit. Awake, alert, and oriented x3. PSYCHIATRIC: Appropriate mood and affect; insight and judgment normal. Assessment/Plan Problem List: (1) Diffuse large B cell lymphoma ICD Codes: C83.30 - Diffuse large B-cell lymphoma, unspecified site Plan: --We will hold future chemo until recovered from pericardial effusion --Await pathology from pericardial fluid and biopsy Hx/Workup: Patient was originally diagnosed with triple hit non-Hodgkin's B- cell lymphoma in the summer 2016. He had extensive mediastinal, cervical and bilateral axillary adenopathy. He was started on cycle 1 of our CHOP chemotherapy with a reduced wrist at the time but developed sepsis with renal failure and was on dialysis. Once he recovered he was started on Rituxan and EPOCH 5 cycles. The patient had to stop chemotherapy due to bacterial endocarditis with significant cardiomyopathy. His most recent PET scan showed progression of disease. Most recently on December 15 he started a new chemotherapy consisting of Rituxan with bendamustine. (2) Pericardial effusion without cardiac tamponade ICD Codes: I31.3 - Pericardial effusion (noninflammatory) Plan: --Cardiology following --Chest tube has no significant drainage Assessment 47-year-old male with history of diffuse large B-cell lymphoma admitted with pericardial effusion Has h/o PE on coumadin. Plan 1. Monitor CBC 2. Supportive care 3. Cytology and path pending. 4. Start low dose lovenox given h/o of PE if ok by surgeon. Discussed with nursing staff. Can transition back to coumadin once he is done with invasive procedure. Ruslan Connelly MD Jan 01, 2018 08:17
[2018-01-01] MEDS: SODIUM CHLORIDE 0.9% FLUSH 10 ML FLUSH IV FLUSH SCH ×2 (08:35→21:00)
[2018-01-01] MEDS: DOCUSATE SODIUM 50 MG/SENNA 8.6 MG TAB PO SCH ×2 (08:36→21:00)
[2018-01-01] MEDS: CALCIUM CARBONATE 1.25 GM (CA 500 MG) TAB PO SCH (08:36)
[2018-01-01] MEDS: NIFEdipine 90 MG SUSTAINED RELEASE TAB PO SCH (08:36)
[2018-01-01] MEDS: ALLOPURINOL 300 MG TAB PO SCH (08:36)
[2018-01-01] MEDS: SACUBITRIL/VALSARTAN 24 MG-26 MG TAB PO SCH ×2 (09:00→21:29)
[2018-01-01] MEDS ORDERED: ENOXAPARIN SODIUM 40 MG/0.4 ML SYRINGE SQ SCH (09:00)
--- NOTE | 2018-01-01 15:30 | HHI.PR ---
Subjective Remarks Follow-up for pericardial effusion status post pericardial window placement, large B-cell lymphoma. Patient is currently doing well. His pericardial drain was removed today. No fever, chills. On room air. Objective Vitals Vital Signs Date Time Temp Pulse Resp B/P (MAP) Pulse Ox O2 Delivery O2 Flow Rate FiO2 01/01/18 14:00 94 01/01/18 13:00 92 01/01/18 12:40 98.2 18 93/61 (72) 01/01/18 12:00 88 01/01/18 11:00 83 01/01/18 10:00 88 01/01/18 09:00 92 01/01/18 08:01 76/57 (63) 01/01/18 08:00 97.9 88 20 79/50 (60) 97 01/01/18 08:00 88 01/01/18 07:00 94 01/01/18 06:44 20 01/01/18 06:00 92 01/01/18 05:09 20 01/01/18 05:00 90 01/01/18 04:00 94 01/01/18 03:49 97.7 93 20 96/67 (77) 96 01/01/18 03:00 92 01/01/18 02:00 94 01/01/18 01:00 94 01/01/18 00:00 96 12/31/17 23:46 97.1 93 20 94/62 (73) 95 12/31/17 23:00 90 12/31/17 22:00 90 12/31/17 21:00 92 12/31/17 20:24 97 12/31/17 20:00 97.9 89 20 96/57 (70) 98 12/31/17 20:00 92 12/31/17 19:00 92 12/31/17 18:00 88 12/31/17 17:00 94 12/31/17 16:00 98.3 83 16 90/60 (70) 96 12/31/17 16:00 92 I/O 12/31/17 12/31/17 12/31/17 01/01/18 01/01/18 01/01/18 06:59 14:59 22:59 06:59 14:59 22:59 Intake Total 480 ml 1400 ml 320 ml Output Total 550 ml 660 ml 300 ml Balance -70 ml 740 ml 20 ml Intake Oral 480 ml 1300 ml 120 ml IV Total 100 ml 200 ml Output Urine Total 500 ml 650 ml 300 ml Chest Tube Drainage Total 50 ml 10 ml 0 ml # Bowel Movements 0 0 Result Diagram: 01/01/18 0245 01/01/18 0245 Imaging Last Impressions Chest X-Ray 12/31/17 0500 Signed Impressions: Service Date/Time: December 05:00 - CONCLUSION: Stable right pleural effusion and patchy left lower lobe infiltrates. Bryon Evans MD Chest CT 12/30/17 0000 Signed Impressions: Service Date/Time: Saturday, December 30, 2017 11:28 - CONCLUSION: Small right pleural effusion with cardiomegaly and trace pericardial effusion Extensive subcarinal adenopathy. Repeat CT scan with contrast would be of benefit. Kirk Briceño MD FACR Objective Remarks GENERAL: Alert, oriented x 3, NAD. Cachectic SKIN: Warm and dry. HEAD: Normocephalic. EYES: No scleral icterus. No injection or drainage. NECK: Supple, trachea midline. No JVD or lymphadenopathy. CARDIOVASCULAR: Regular rate and rhythm without murmurs, gallops, or rubs. RESPIRATORY: Breath sounds equal bilaterally. No accessory muscle use. GASTROINTESTINAL: Abdomen soft, non-tender, nondistended. MUSCULOSKELETAL: No cyanosis, or edema. BACK: Nontender without obvious deformity. No CVA tenderness. Procedures Operative Report Date of Surgery: Dec 30, 2017 Preoperative Diagnosis: Postoperative Diagnosis: Procedure: 1. Emergent Subxiphoid Pericardial Window. 2. Drainage of Pericardial Effusion. 3. Pericardial Biopsy Surgeon: Aye Jamil Dairy Technologist(s): Giovani Elam Operation and Findings: PREOPERATIVE DIAGNOSES 1. Moderate Pericardial Effusion . 2. Non-Hodgkin's Lymphoma 3. Early Tamponade Physiology POSTOPERATIVE DIAGNOSES Same PROCEDURE 1. Emergent Subxiphoid Pericardial Window. 2. Drainage of Pericardial Effusion. 3. Pericardial Biopsy MACHINIST FIRST CLASS Emily Elam PA-C ANESTHESIA General endotracheal. ANESTHETISTS MEL Kim MD PREPARATION ChloraPrep. NEEDLE, SPONGE, AND INSTRUMENT COUNTS Correct. DRAINS One 28-Trinidadian pericardial tube. COMPLICATIONS None. INDICATIONS The patient is a 47 year-old with Lymphoma presenting with shortness of breath and a large pericardial effusion. The patient is being brought to the operating room for emergent drainage procedure. DESCRIPTION OF PROCEDURE The patient was brought to the operating room and placed supine on the OR table. Following the induction of adequate general endotracheal anesthesia and placement of appropriate monitoring devices, the chest and abdomen were then prepped and draped in a standard sterile fashion. Through an approximately 3 cm subxiphoid incision, the incision was carried down to the level of the endothoracic fascia which was divided, and the xiphoid process lifted off the pericardium. The prepericardial fat was dissected free, and the anterior surface of the pericardium identified. A longitudinal pericardiotomy was performed and enlarged horizontally to create a big hole. 250 mls of hemorrhagic effusion was evacuated and sent for microbiologic and cytologic analysis. A pericardial biopsy was also obtained and sent for histologic analysis. Echocardiographic confirmation of complete evacuation of all pericardial effusion was made.Strict hemostasis was assured. A 28-Trinidadian chest tube was then placed into the pericardial space and exited through a separate stab wound. Incision was anesthetized with 0.5% Marcaine with epinephrine and the incision closed in 3 layers. Dermabond and sterile dressing were applied. The patient was transferred to ICU in stable condition. Aye Jamil MD Dec 30, 2017 16:05 <Electronically signed by Aye Jamil MD> 12/30/17 1605 A/P Problem List: (1) Diffuse large B cell lymphoma ICD Code: C83.30 - Diffuse large B-cell lymphoma, unspecified site (2) Heart failure ICD Code: I50.9 - Heart failure, unspecified (3) Pulmonary emboli ICD Code: I26.99 - Other pulmonary embolism without acute cor pulmonale Status: Chronic (4) Severe protein-calorie malnutrition ICD Code: E43 - Unspecified severe protein-calorie malnutrition (5) Hypertension ICD Code: I10 - Essential (primary) hypertension (6) Debility ICD Code: R53.81 - Other malaise Status: Acute (7) Non-Hodgkin lymphoma ICD Code: C85.90 - Non-Hodgkin lymphoma, unspecified, unspecified site Status: Acute (8) Shortness of breath ICD Code: R06.02 - Shortness of breath Status: Acute (9) Pericardial effusion without cardiac tamponade ICD Code: I31.3 - Pericardial effusion (noninflammatory) (10) Pleural effusion ICD Code: J90 - Pleural effusion, not elsewhere classified Status: Resolved Assessment and Plan Patient is a 47-year-old -[place] male who was sent in by Dr. Stack for pericardial effusion and pericardial tamponade. Patient has a known history of non-Hodgkin's lymphoma by Dr. Connelly of oncology. Patient states he had chemotherapy a couple weeks ago. Pericardial effusion Cardiac tamponade Status post pericardial window, drain removed on 01/01/2018. Hypertension Continue nifedipine 90 mg daily, metoprolol 25 mg twice daily. There was some concern over proximal atrial fibrillation. On my examination patient was in sinus rhythm. 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 Large B-cell lymphoma Patient follows up with Dr. Connelly. Acute kidney injury - Creatinine is around 1.3 to 1.4. Baseline appears to be below 1.0. Full code. Lovenox 40mg Q12hrs. Probable discharge in the AM. Zulma Zavala DO Jan 01, 2018 3:30 pm
--- NOTE | 2018-01-01 16:49 | PD.CAR.PN ---
CVT Progress Note Subjective/Hospital Course: Mr. Werner is a very pleasant 47-year-old, very frail appearing, gentleman with a known history of non-Hodgkin's lymphoma who is being treated by Dr. Connelly with chemotherapy, who now presents with gradual progressive symptoms of shortness of breath with some associated chest pressure. The patient was seen by Dr. Stack in his office and had an echocardiogram done which revealed significant pericardial effusion with tamponade physiology and he was sent to the Emergency Department for further management. In the ER, echocardiogram was done which revealed moderate pericardial effusion with no tamponade physiology; however, with significant stranding. surgery: 12/30/17 1. Emergent Subxiphoid Pericardial Window. 2. Drainage of Pericardial Effusion. 3. Pericardial Biopsy path pending 12/31 chest tube drained 60cc/ 12 hrs eval for removal in am 01/01 pericardial drain removed without difficulty in parox afib > NSR VSS ok to start lovenox in am Objective: GENERAL: A&O x 3 , thin frail appearing male SKIN: Warm and dry./ dressing over pericaridal drain certified composites technician: Normocephalic. EYES: No scleral icterus. No injection or drainage. NECK: Supple, trachea midline. No JVD or lymphadenopathy. CARDIOVASCULAR: Regular rate and rhythm without murmurs, gallops, or rubs. RESPIRATORY: Breath sounds equal bilaterally. No accessory muscle use. GASTROINTESTINAL: Abdomen soft, non-tender, nondistended. MUSCULOSKELETAL: No cyanosis, or edema. BACK: Nontender without obvious deformity. No CVA tenderness. Vital Signs Date Time Temp Pulse Resp B/P (MAP) Pulse Ox O2 Delivery O2 Flow Rate FiO2 01/01/18 14:00 94 01/01/18 13:00 92 01/01/18 12:40 98.2 18 93/61 (72) 01/01/18 12:00 88 01/01/18 11:00 83 01/01/18 10:00 88 01/01/18 09:00 92 01/01/18 08:01 76/57 (63) 01/01/18 08:00 97.9 88 20 79/50 (60) 97 01/01/18 08:00 88 01/01/18 07:00 94 01/01/18 06:44 20 01/01/18 06:00 92 01/01/18 05:09 20 01/01/18 05:00 90 01/01/18 04:00 94 01/01/18 03:49 97.7 93 20 96/67 (77) 96 01/01/18 03:00 92 01/01/18 02:00 94 01/01/18 01:00 94 01/01/18 00:00 96 12/31/17 23:46 97.1 93 20 94/62 (73) 95 12/31/17 23:00 90 12/31/17 22:00 90 12/31/17 21:00 92 12/31/17 20:24 97 12/31/17 20:00 97.9 89 20 96/57 (70) 98 12/31/17 20:00 92 12/31/17 19:00 92 12/31/17 18:00 88 12/31/17 17:00 94 Result Diagram: 01/01/18 0245 01/01/18 0245 (1) Pericardial effusion without cardiac tamponade Plan: s/p pericardial window drain removed today ok for dc in am from [facility] standpoint path pending (2) Elevated troponin (3) Diffuse large B cell lymphoma (4) Pleural effusion (5) pericardial window Jessica Knight Jan 01, 2018 16:49
--- NOTE | 2018-01-01 16:51 | PD.CARD.PN ---
Subjective Subjective Remarks No CP or SOB, feels better, drain removed Objective Medications Current Medications Medications (Trade) Dose Ordered Sig/Shyla Route Start Time Stop Time Status Last Admin (Zyloprim) 300 mg DAILY PO 12/31/17 09:00 01/01/18 08:36 (Oscal) 1,500 mg DAILY PO 12/31/17 09:00 01/01/18 08:36 (Procardia Xl) 90 mg DAILY PO 12/31/17 09:00 (Entresto 24-26 Mg) 1 tab BID PO 12/30/17 21:00 12/31/17 20:52 Sodium Chloride 1,000 ml @ 100 mls/hr Q10H IV 12/30/17 13:29 01/01/18 04:56 (Reglan Inj) 5 mg Q6H PRN IV PUSH 12/30/17 13:30 (Restoril) 15 mg HS PRN PO 12/30/17 13:30 (Tylenol) 650 mg Q6H PRN PO 12/30/17 13:30 (Percocet 10-325 Mg) 1 tab Q6H PRN PO 12/30/17 13:30 01/01/18 06:11 (Morphine Inj) 2 mg Q3H PRN IV PUSH 12/30/17 13:30 12/30/17 13:54 (Morphine Inj) 4 mg Q3H PRN IV PUSH 12/30/17 13:30 01/01/18 05:04 (Morphine Inj) 4 mg Q3H PRN IV PUSH 12/30/17 13:30 (Roxicodone) 5 mg Q4H PRN PO 12/30/17 13:30 (Narcan Inj) 0.4 mg UNSCH PRN IV PUSH 12/30/17 13:30 (Porsha-Colace) 1 tab BID PO 12/30/17 21:00 01/01/18 08:36 (Senokot) 17.2 mg Q12H PRN PO 12/30/17 13:30 (Dulcolax Supp) 10 mg DAILY PRN RECTAL 12/30/17 13:30 (Lactulose Liq) 30 ml DAILY PRN PO 12/30/17 13:30 (NS Flush) 2 ml BID IV FLUSH 12/30/17 21:00 01/01/18 08:35 (NS Flush) 2 ml UNSCH PRN IV FLUSH 12/30/17 16:00 (Protonix) 40 mg HS PO 12/30/17 21:00 12/31/17 20:53 (Zofran Inj) 4 mg Q6H PRN IV PUSH 12/30/17 16:00 (Surfak) 240 mg HS PO 12/30/17 21:00 (Milk Of Magnesia Liq) 30 ml DAILY PRN PO 12/30/17 16:00 (Tylenol) 650 mg Q4H PRN PO 12/30/17 16:00 (Early 5-325 Mg) 1 tab Q3H PRN PO 12/30/17 16:00 (Lopressor) 25 mg BID PO 01/01/18 05:45 01/01/18 06:09 (Lovenox Inj) 40 mg Q12H SQ 01/02/18 09:00 Vital Signs / I&O Vital Signs Date Time Temp Pulse Resp B/P (MAP) Pulse Ox O2 Delivery O2 Flow Rate FiO2 01/01/18 14:00 94 01/01/18 13:00 92 01/01/18 12:40 98.2 18 93/61 (72) 01/01/18 12:00 88 01/01/18 11:00 83 01/01/18 10:00 88 01/01/18 09:00 92 01/01/18 08:01 76/57 (63) 01/01/18 08:00 97.9 88 20 79/50 (60) 97 01/01/18 08:00 88 01/01/18 07:00 94 01/01/18 06:44 20 01/01/18 06:00 92 01/01/18 05:09 20 01/01/18 05:00 90 01/01/18 04:00 94 01/01/18 03:49 97.7 93 20 96/67 (77) 96 01/01/18 03:00 92 01/01/18 02:00 94 01/01/18 01:00 94 01/01/18 00:00 96 12/31/17 23:46 97.1 93 20 94/62 (73) 95 12/31/17 23:00 90 12/31/17 22:00 90 12/31/17 21:00 92 12/31/17 20:24 97 12/31/17 20:00 97.9 89 20 96/57 (70) 98 12/31/17 20:00 92 12/31/17 19:00 92 12/31/17 18:00 88 12/31/17 17:00 94 I/O 12/31/17 12/31/17 12/31/17 01/01/18 01/01/18 01/01/18 07:00 15:00 23:00 07:00 15:00 23:00 Intake Total 480 ml 1400 ml 320 ml Output Total 550 ml 660 ml 300 ml Balance -70 ml 740 ml 20 ml Intake Oral 480 ml 1300 ml 120 ml IV Total 100 ml 200 ml Output Urine Total 500 ml 650 ml 300 ml Chest Tube Drainage Total 50 ml 10 ml 0 ml # Bowel Movements 0 0 Physical Exam GENERAL: In NAD. SKIN: Warm and dry. HEAD: Normocephalic. EYES: No scleral icterus. No injection or drainage. NECK: Supple, trachea midline. No JVD or lymphadenopathy. CARDIOVASCULAR: Regular rate and rhythm without murmurs, gallops, or rubs. RESPIRATORY: Breath sounds equal bilaterally. No accessory muscle use. GASTROINTESTINAL: Abdomen soft, non-tender, nondistended. MUSCULOSKELETAL: No cyanosis, or edema. Laboratory Laboratory Tests Test 01/01/18 02:45 White Blood Count 8.5 TH/MM3 Red Blood Count 4.13 MIL/MM3 Hemoglobin 10.9 GM/DL Hematocrit 34.1 % Mean Corpuscular Volume 82.7 FL Mean Corpuscular Hemoglobin 26.4 PG Mean Corpuscular Hemoglobin Concent 32.0 % Red Cell Distribution Width 19.0 % Platelet Count 356 TH/MM3 Mean Platelet Volume 8.4 FL Neutrophils (%) (Auto) 87.7 % Lymphocytes (%) (Auto) 3.6 % Monocytes (%) (Auto) 6.1 % Eosinophils (%) (Auto) 1.8 % Basophils (%) (Auto) 0.8 % Neutrophils # (Auto) 7.5 TH/MM3 Lymphocytes # (Auto) 0.3 TH/MM3 Monocytes # (Auto) 0.5 TH/MM3 Eosinophils # (Auto) 0.2 TH/MM3 Basophils # (Auto) 0.1 TH/MM3 CBC Comment DIFF FINAL Differential Comment Prothrombin Time 15.0 SEC Prothromb Time International Ratio 1.5 RATIO Blood Urea Nitrogen 11 MG/DL Creatinine 1.37 MG/DL Random Glucose 87 MG/DL Total Protein 5.2 GM/DL Albumin 1.8 GM/DL Calcium Level 7.5 MG/DL Phosphorus Level 2.3 MG/DL Magnesium Level 1.3 MG/DL Alkaline Phosphatase 122 U/L Aspartate Amino Transf (AST/SGOT) 10 U/L Alanine Aminotransferase (ALT/SGPT) LESS THAN 6 U/L Total Bilirubin 0.2 MG/DL Sodium Level 140 MEQ/L Potassium Level 3.9 MEQ/L Chloride Level 108 MEQ/L Carbon Dioxide Level 20.3 MEQ/L Anion Gap 12 MEQ/L Estimat Glomerular Filtration Rate 67 ML/MIN Assessment and Plan Problem List: (1) Pericardial effusion without cardiac tamponade ICD Codes: I31.3 - Pericardial effusion (noninflammatory) (2) Elevated troponin ICD Codes: R74.8 - Abnormal levels of other serum enzymes (3) Diffuse large B cell lymphoma ICD Codes: C83.30 - Diffuse large B-cell lymphoma, unspecified site (4) Pleural effusion ICD Codes: J90 - Pleural effusion, not elsewhere classified Status: Resolved (5) pericardial window Assessment and Plan Drain removed, remains stable. Improved after pericardial fluid surgical drainage. Await bx results. Mild troponin elevation; no angina or CHF at this time, no evidence of ACS, continue current program. Continue monitoring. F/u w Dr. Stack, his primary supervisor plastics, after discharge. Mayra Azul MD Jan 01, 2018 16:51
[2018-01-01] MEDS: DOCUSATE CALCIUM 240 MG CAP PO SCH (21:00)
[2018-01-01] MEDS: PANTOPRAZOLE SOD 40 MG DELAYED RELEASE TAB PO SCH (21:29)
[2018-01-02] VITALS (10 sets, daily range): BP systolic 86; BP diastolic 47; PULSE 81–113; RESP 18; TEMP 97.7; O2SAT 95
[2018-01-02] MEDS: oxyCODONE/ACETAMINOPHEN 10 MG/325 MG TAB PO PRN (00:54)
[2018-01-02] MEDS: SODIUM CHLOR 0.9% 1000 ML INJ 1,000 ML IV SCH (00:57)
[2018-01-02 06:17] LABS: INTERNATIONAL NORMALIZED RATIO 1.5 RATIO; PROTHROMBIN TIME - PATIENT 15.3 SEC (9.8-11.6)
[2018-01-02 06:19] LABS: AUTOMATED NEUTROPHIL # 6.4 TH/MM3 (1.8-7.7); BASOPHIL % 0.2 % (0.0-2.0); EOSINOPHIL # 0.1 TH/MM3 (0-0.4); EOSINOPHIL % 1.5 % (0.0-4.0); HEMATOCRIT 33.6 % (39.0-51.0); HEMOGLOBIN 10.9 GM/DL (13.0-17.0); LYMPHOCYTE # 0.4 TH/MM3 (1.0-4.8); MEAN CELL VOLUME 83.1 FL (80.0-100.0); MEAN CORPUSCULAR HEMOGLOBIN 27.1 PG (27.0-34.0); MEAN CORPUSCULAR HGB CONC 32.6 % (32.0-36.0); MEAN PLATELET VOLUME 8.3 FL (7.0-11.0); MONO % 8.4 % (0.0-8.0); MONOCYTE # 0.6 TH/MM3 (0-0.9); NEUT % 84.9 % (16.0-70.0); PLATELET COUNT 356 TH/MM3 (150-450); RED BLOOD COUNT 4.04 MIL/MM3 (4.50-5.90); RED CELL DISTRIBUTION WIDTH 19.2 % (11.6-17.2); WHITE BLOOD COUNT 7.6 TH/MM3 (4.0-11.0)
[2018-01-02] MEDS ORDERED: PERC5TAB12 PO (08:44)
[2018-01-02] MEDS ORDERED: NIFE30TA61 PO (08:44)
[2018-01-02] MEDS ORDERED: METO25TA3 PO (08:44)
[2018-01-02] MEDS: METOPROLOL TARTRATE 25 MG TAB PO SCH (09:00)
[2018-01-02] MEDS ORDERED: ENOXAPARIN SODIUM 40 MG/0.4 ML SYRINGE SQ SCH (09:00)
--- NOTE | 2018-01-02 09:39 | HHI.DS ---
Discharge Summary Admission Date Dec 30, 2017 at 12:42 pm Discharge Date: Jan 02, 2018 Admitting Diagnosis Pleural Effusion, Pericardial effusion. (1) Diffuse large B cell lymphoma ICD Code: C83.30 - Diffuse large B-cell lymphoma, unspecified site Diagnosis: Secondary (2) Heart failure ICD Code: I50.9 - Heart failure, unspecified Diagnosis: Secondary (3) Pulmonary emboli ICD Code: I26.99 - Other pulmonary embolism without acute cor pulmonale Diagnosis: Secondary Status: Chronic (4) Severe protein-calorie malnutrition ICD Code: E43 - Unspecified severe protein-calorie malnutrition Diagnosis: Secondary (5) Hypertension ICD Code: I10 - Essential (primary) hypertension Diagnosis: Secondary (6) Debility ICD Code: R53.81 - Other malaise Status: Acute (7) Non-Hodgkin lymphoma ICD Code: C85.90 - Non-Hodgkin lymphoma, unspecified, unspecified site Diagnosis: Secondary Status: Acute (8) Shortness of breath ICD Code: R06.02 - Shortness of breath Diagnosis: Principal Status: Acute (9) Pericardial effusion without cardiac tamponade ICD Code: I31.3 - Pericardial effusion (noninflammatory) Diagnosis: Principal (10) Pleural effusion ICD Code: J90 - Pleural effusion, not elsewhere classified Diagnosis: Principal Status: Resolved Procedures Operative Report Date of Surgery: Dec 30, 2017 Preoperative Diagnosis: Postoperative Diagnosis: Procedure: 1. Emergent Subxiphoid Pericardial Window. 2. Drainage of Pericardial Effusion. 3. Pericardial Biopsy Surgeon: Aye Jamil Terminal System Operator(s): Giovani Elam Operation and Findings: PREOPERATIVE DIAGNOSES 1. Moderate Pericardial Effusion . 2. Non-Hodgkin's Lymphoma 3. Early Tamponade Physiology POSTOPERATIVE DIAGNOSES Same PROCEDURE 1. Emergent Subxiphoid Pericardial Window. 2. Drainage of Pericardial Effusion. 3. Pericardial Biopsy SUPERVISOR PLASMA Emily Elam PA-C ANESTHESIA General endotracheal. ANESTHETISTS MEL Kim MD PREPARATION ChloraPrep. NEEDLE, SPONGE, AND INSTRUMENT COUNTS Correct. DRAINS One 28-Prydeinig pericardial tube. COMPLICATIONS None. INDICATIONS The patient is a 47 year-old with Lymphoma presenting with shortness of breath and a large pericardial effusion. The patient is being brought to the operating room for emergent drainage procedure. DESCRIPTION OF PROCEDURE The patient was brought to the operating room and placed supine on the OR table. Following the induction of adequate general endotracheal anesthesia and placement of appropriate monitoring devices, the chest and abdomen were then prepped and draped in a standard sterile fashion. Through an approximately 3 cm subxiphoid incision, the incision was carried down to the level of the endothoracic fascia which was divided, and the xiphoid process lifted off the pericardium. The prepericardial fat was dissected free, and the anterior surface of the pericardium identified. A longitudinal pericardiotomy was performed and enlarged horizontally to create a big hole. 250 mls of hemorrhagic effusion was evacuated and sent for microbiologic and cytologic analysis. A pericardial biopsy was also obtained and sent for histologic analysis. Echocardiographic confirmation of complete evacuation of all pericardial effusion was made.Strict hemostasis was assured. A 28-Prydeinig chest tube was then placed into the pericardial space and exited through a separate stab wound. Incision was anesthetized with 0.5% Marcaine with epinephrine and the incision closed in 3 layers. Dermabond and sterile dressing were applied. The patient was transferred to ICU in stable condition. Aye Jamil MD Dec 30, 2017 16:05 <Electronically signed by Aye Jamil MD> 12/30/17 1605 Brief History - From Admission Patient is a 47-year-old -[place] male who was sent in by Dr. STACK for pericardial effusion broaching on pericardial tamponade. Patient has a known history of non-Hodgkin's lymphoma by Dr. CONNELLY of oncology. Patient states he had chemotherapy a couple weeks ago. He states he went to see his boats renter today has been having some increasing shortness of breath did an echocardiogram there. And Dr. STACK stated that patient had significant pericardial effusion with a mass and worsening tamponade is approaching. Patient states he is only having some mild shortness of breath denies any chest pain he states this is been going on for the past few days and gradually worsening patient will therefore be admitted will consult cardiovascular surgery and medical oncology. CBC/BMP: 01/02/18 0543 01/01/18 0245 Significant Findings Laboratory Tests Test 3/21/18 09:39 12/30/17 21:15 12/31/17 03:25 01/01/18 02:45 White Blood Count 12.6 TH/MM3 (4.0-11.0) Red Blood Count 4.14 MIL/MM3 (4.50-5.90) 4.06 MIL/MM3 (4.50-5.90) 4.13 MIL/MM3 (4.50-5.90) Hemoglobin 11.1 GM/DL (13.0-17.0) 10.9 GM/DL (13.0-17.0) 10.9 GM/DL (13.0-17.0) Hematocrit 34.8 % (39.0-51.0) 33.2 % (39.0-51.0) 34.1 % (39.0-51.0) Mean Corpuscular Hemoglobin 26.9 PG (27.0-34.0) 26.8 PG (27.0-34.0) 26.4 PG (27.0-34.0) Red Cell Distribution Width 19.1 % (11.6-17.2) 19.0 % (11.6-17.2) 19.0 % (11.6-17.2) Neutrophils (%) (Auto) 91.2 % (16.0-70.0) 86.7 % (16.0-70.0) 87.7 % (16.0-70.0) Lymphocytes (%) (Auto) 2.1 % (9.0-44.0) 3.0 % (9.0-44.0) 3.6 % (9.0-44.0) Neutrophils # (Auto) 11.5 TH/MM3 (1.8-7.7) Lymphocytes # (Auto) 0.3 TH/MM3 (1.0-4.8) 0.2 TH/MM3 (1.0-4.8) 0.3 TH/MM3 (1.0-4.8) Prothrombin Time 12.8 SEC (9.8-11.6) 14.3 SEC (9.8-11.6) 15.0 SEC (9.8-11.6) Activated Partial Thromboplast Time 30.4 SEC (24.3-30.1) Creatinine 1.36 MG/DL (0.60-1.30) 1.47 MG/DL (0.60-1.30) 1.37 MG/DL (0.60-1.30) Estimat Glomerular Filtration Rate 68 ML/MIN (>89) 62 ML/MIN (>89) 67 ML/MIN (>89) Troponin I 0.90 NG/ML (0.02-0.05) 1.06 NG/ML (0.02-0.05) 0.79 NG/ML (0.02-0.05) Total Protein 6.0 GM/DL (6.4-8.2) 5.2 GM/DL (6.4-8.2) Albumin 2.3 GM/DL (3.4-5.0) 1.8 GM/DL (3.4-5.0) Calcium Level 8.4 MG/DL (8.5-10.1) 7.5 MG/DL (8.5-10.1) Magnesium Level 1.4 MG/DL (1.5-2.5) 1.3 MG/DL (1.5-2.5) Alkaline Phosphatase 150 U/L (45-117) 122 U/L (45-117) Aspartate Amino Transf (AST/SGOT) 12 U/L (15-37) 10 U/L (15-37) Alanine Aminotransferase (ALT/SGPT) LESS THAN 6 U/L (12-78) LESS THAN 6 U/L (12-78) Free Thyroxine 1.66 NG/DL (0.76-1.46) Thyroid Stimulating Hormone 3rd Gen 6.840 uIU/ML (0.358-3.740) Phosphorus Level 2.3 MG/DL (2.5-4.9) Chloride Level 108 MEQ/L (98-107) Carbon Dioxide Level 20.3 MEQ/L (21.0-32.0) Test 01/02/18 05:43 Red Blood Count 4.04 MIL/MM3 (4.50-5.90) Hemoglobin 10.9 GM/DL (13.0-17.0) Hematocrit 33.6 % (39.0-51.0) Red Cell Distribution Width 19.2 % (11.6-17.2) Neutrophils (%) (Auto) 84.9 % (16.0-70.0) Lymphocytes (%) (Auto) 5.0 % (9.0-44.0) Monocytes (%) (Auto) 8.4 % (0.0-8.0) Lymphocytes # (Auto) 0.4 TH/MM3 (1.0-4.8) Prothrombin Time 15.3 SEC (9.8-11.6) Imaging Last Impressions Chest X-Ray 12/31/17 0500 Signed Impressions: Service Date/Time: December 05:00 - CONCLUSION: Stable right pleural effusion and patchy left lower lobe infiltrates. Bryon Evans MD Chest CT 12/30/17 0000 Signed Impressions: Service Date/Time: Saturday, December 30, 2017 11:28 - CONCLUSION: Small right pleural effusion with cardiomegaly and trace pericardial effusion Extensive subcarinal adenopathy. Repeat CT scan with contrast would be of benefit. Kirk Briceño MD FACR PE at Discharge GENERAL: Alert, oriented x 3, NAD. Cachectic SKIN: Warm and dry. HEAD: Normocephalic. EYES: No scleral icterus. No injection or drainage. NECK: Supple, trachea midline. No JVD or lymphadenopathy. CARDIOVASCULAR: Regular rate and rhythm without murmurs, gallops, or rubs. RESPIRATORY: Breath sounds equal bilaterally. No accessory muscle use. GASTROINTESTINAL: Abdomen soft, non-tender, nondistended. MUSCULOSKELETAL: No cyanosis, or edema. BACK: Nontender without obvious deformity. No CVA tenderness. Pt update on day of discharge Patient is doing well. On room air, no chest pain, SOB, fever, chills. Hospital Course Patient is a 47-year-old -[place] male who was sent in by Dr. Stack for pericardial effusion and pericardial tamponade. Patient has a known history of non-Hodgkin's lymphoma by Dr. Connelly of oncology. Patient states he had chemotherapy a couple weeks ago. Pericardial effusion Cardiac tamponade Status post pericardial window, drain removed on 01/01/2018. Cardiothoracic surgery okay with discharge on 01/02/2018. Hypertension Continue nifedipine 90 mg daily, metoprolol 25 mg twice daily. There was some concern over proximal atrial fibrillation. On my examination patient was in sinus rhythm. Patient's outpatient boats renter can investigate further with regards to atrial fibrillation. Large B-cell lymphoma Patient follows up with Dr. Connelly. Acute kidney injury - Creatinine is around 1.3 to 1.4. Baseline appears to be below 1.0. Full code. Lovenox 40mg Q12hrs in the hospital for DVT prophylaxis. Pt Condition on Discharge: Good Discharge Disposition: Discharge Home Discharge Time: <= 30 minutes Discharge Instructions DIET: Follow Instructions for: As Tolerated, No Restrictions Activities you can perform: Regular-No Restrictions Follow up Referrals: Cardiology - 4 Weeks with Mayra Azul MD PCP Follow-up - 2 Weeks with Ruslan Connelly MD Surgical - 2 Weeks with Jessica Knight New Orders: PT/INR - 3-5 Days New Medications: Nifedipine ER 24 HR (Nifedipine ER 24 HR) 30 Mg Tab 30 MG PO DAILY for Blood Pressure Management, #30 TAB 0 Refills Hold if systolic BP < 110 Oxycodone-Acetaminophen (Percocet) 5-325 mg Tab 1 TAB PO Q6H PRN for PAIN, #30 TAB 0 Refills Metoprolol Tartrate (Metoprolol Tartrate) 25 Mg Tab 25 MG PO BID for Heart, #60 TAB 11 Refills Continued Medications: Allopurinol (Zyloprim) 300 Mg Tab 300 MG PO DAILY for Gout, #30 TAB 0 Refills Calcium Carbonate (Calcium Carbonate) 1,500 Mg Tab 1500 MG PO DAILY for Calcium Supplement, TAB 0 Refills 1,500 mg calcium carbonate (600 mg elemental calcium) Pantoprazole (Protonix) 40 Mg Tab 40 MG PO DAILY for Reflux, #30 TAB 0 Refills Sacubitril-Valsartan (Entresto) 24-26 Mg Tab 1 TAB PO BID for Heart Failure, #30 TAB 0 Refills Warfarin (Coumadin) 3 Mg Tab 3 MG PO DAILY@1600 for Prevent Blood Clot, #30 TAB 3 Refills Discontinued Medications: Lisinopril (Lisinopril) 5 Mg Tab 5 MG PO DAILY for Blood Pressure Management, #30 TAB 0 Refills Metoprolol Tartrate (Metoprolol Tartrate) 25 Mg Tab 12.5 MG PO BID, #60 TAB 0 Refills Nifedipine ER 24 HR (Procardia XL) 90 Mg Tab 90 MG PO DAILY, #30 TAB 0 Refills Zulma Zavala DO Jan 02, 2018 09:38
[2018-01-02] MEDS: CALCIUM CARBONATE 1.25 GM (CA 500 MG) TAB PO SCH (09:53)
[2018-01-02] MEDS: DOCUSATE SODIUM 50 MG/SENNA 8.6 MG TAB PO SCH (09:53)
[2018-01-02] MEDS: SACUBITRIL/VALSARTAN 24 MG-26 MG TAB PO SCH (09:53)
[2018-01-02] MEDS ORDERED: NIFEdipine 30 MG SUSTAINED RELEASE TAB PO SCH (10:00)
--- NOTE | 2018-01-02 20:07 | EKG ---
Date Performed: 01/02/2018 Time Performed: 01:29:30 PTAGE: 47 years EKG: CONSIDER ACUTE ST ELEVATION OR Sinus rhythm with PAC(s). Left axis deviation Possible anterior infarct - age undetermined Inferior ST elevation, CONSIDER ACUTE INFARCT Lateral T wave changes may be due to myocardial ischemia Abnormal ECG Since PREVIOUS TRACING , no significant change noted PREVIOUS TRACIN12/30/2017 09.34.21 DOCTOR: Brooke Levin Interpretating Date/Time 01/02/2018 20:05:08
== END 2018-01-02 12:36 | disposition home or self-care (01) | DRG 820 ==
LOC: NEPC 09:07 → NEDA 12:42 → HCPC 17:56
PROVIDERS: ADMIT Hospitalist; ATTEND Hospitalist
PROC: 0W9D00Z Drainage of Pericardial Cavity with Drainage Device, Open Approach (ICD-10-PCS; principal; 2017-12-30 14:52)
PROC: 02BN0ZX Excision of Pericardium, Open Approach, Diagnostic (ICD-10-PCS; 2017-12-30 14:52)
DX: C83.38 Diffuse large B-cell lymphoma, lymph nodes of multiple sites (principal); E43 Unspecified severe protein-calorie malnutrition; I31.4 Cardiac tamponade; I26.99 Other pulmonary embolism without acute cor pulmonale; R64 Cachexia; N17.9 Acute kidney failure, unspecified; I42.9 Cardiomyopathy, unspecified; I48.0 Paroxysmal atrial fibrillation; Z68.1 Body mass index [BMI] 19.9 or less, adult; I11.0 Hypertensive heart disease with heart failure; I50.9 Heart failure, unspecified; K21.9 Gastro-esophageal reflux disease without esophagitis; M10.9 Gout, unspecified; R74.8 Abnormal levels of other serum enzymes; Z79.01 Long term (current) use of anticoagulants; Z86.14 Personal history of Methicillin resistant Staphylococcus aureus infection; Z86.711 Personal history of pulmonary embolism; Z87.891 Personal history of nicotine dependence
CPT/HCPCS: 36430; 71045; 71250; 76937; 80048; 80053; 82550; 83036; 83735; 84100; 84439; 84443; 84484; 85025; 85610; 85730; 86850; 86900; 86901; 86920; 87015; 87070; 87102; 87116; 87205; 87206; 88112; 88305; 88341; 88342; 93005; 93306; 93318; 94150; J0330; J0690; J1650; J1885; J1940; J2270; J2370; J2405; J3010; J7030; P9016

== ENCOUNTER 2018-01-11 08:04 | Inpatient (IN) | payer MEDICAID ==
[2018-01-11] VITALS (14 sets, daily range): BP systolic 80–100; BP diastolic 56–73; PULSE 72–84; RESP 16–22; TEMP 97.5–97.7; O2SAT 94–100
[~2018-01-11] VITALS: Ht 188 cm; Wt 64.0 kg
[~2018-01-11 08:04] MED LIST changes: +ALLO300 PO; -DRON2.5 PO; -KLOR10TA PO; +METO25TA3 PO; +NIFE30TA61 PO; +PERC5TAB12 PO; -PROC90TA PO; +PROT40TA PO; +SACU1TAB PO; -WHEEMIS3
--- NOTE | 2018-01-11 08:23 | PD ---
HPI Chief Complaint: Respiratory Distress Time Seen by Provider: 08:17 Travel History International Travel<30 days: No Contact w/Intl Traveler<30days: No Traveled to known affect area: No History of Present Illness HPI Patient is a 47-year-old male known to me from his last ER and hospital admission presents emergency department for evaluation of shortness of breath for the past few days and gradually worsening. Patient has a history of non- Hodgkin's lymphoma is followed by Dr. Gaspar, December 30 he presented emergency department for evaluation of a pericardial effusion, was found to have both a pericardial effusion and a pleural effusion on this visit, initial ER evaluation showed that he was not having [place] nod however he did proceed with inpatient admission and ultimately did have a emergent subxiphoid pericardial window procedure done on December 30. Ultimately was discharged on January 02. Patient states he became so short of breath today that even with walking short distances he is becoming very winded. EMS reports his initial room air sat was in the mid 80s, nasal cannula his saturation rapidly amanda back to 100%. He is not on home oxygen. Currently the patient denies any pain just endorses shortness of breath. Denies any chest pain denies abdominal pain denies any nausea or vomiting. PFSH Past Medical History Hx Anticoagulant Therapy: Yes Atrial Fibrillation: Yes Autoimmune Disease: No Cancer: Yes (NONHODGKINS LYMPHOMA ) Cardiovascular Problems: Yes Chemotherapy: Yes Diabetes: No Endocrine: No Gastrointestinal Disorders: No Genitourinary: No Hypertension: Yes Immune Disorder: No Implanted Vascular Access Dvce: Yes (PORT RIGHT CHEST) Musculoskeletal: No Neurologic: No Psychiatric: No Reproductive: No Respiratory: Yes (Pulmonary embolism in past) Immunizations Current: No Radiation Therapy: No Thyroid Disease: No Past Surgical History Other Surgery: Yes Social History Alcohol Use: No (quit 02/2017) Tobacco Use: No (quit 02/2017) Substance Use: No (tried weed) Allergies-Medications (Allergen,Severity, Reaction): Coded Allergies: Milk Containing Products (Verified Allergy, Mild, diarrhea, 01/11/18) Reported Meds & Prescriptions Reported Meds & Active Scripts Active Percocet (Oxycodone-Acetaminophen) 5-325 mg Tab 1 Tab PO Q6H PRN Coumadin (Warfarin) 3 Mg Tab 3 Mg PO DAILY@1600 Reported Protonix (Pantoprazole Sodium) 40 Mg Tab 40 Mg PO DAILY Entresto (Sacubitril-Valsartan) 24-26 Mg Tab 1 Tab PO BID Calcium Carbonate 1,500 Mg Tab 1,500 Mg PO DAILY 1,500 mg calcium carbonate (600 mg elemental calcium) Review of Systems Except as stated in HPI: all other systems reviewed are Neg Physical Exam Narrative GENERAL: This 47-year-old cachectic male appears older than stated age. Appears chronically ill. SKIN: Focused skin assessment warm/dry. HEAD: Atraumatic. Normocephalic. EYES: Pupils equal and round. No scleral icterus. No injection or drainage. ENT: No nasal bleeding or discharge. Mucous membranes pink and moist. NECK: Trachea midline. No JVD. CARDIOVASCULAR: Regular rate and rhythm. No murmur appreciated. RESPIRATORY: No accessory muscle use. Clear to auscultation. Breath sounds equal bilaterally. GASTROINTESTINAL: Abdomen soft, non-tender, nondistended. Hepatic and splenic margins not palpable. MUSCULOSKELETAL: No obvious deformities. No clubbing. No cyanosis. No edema. NEUROLOGICAL: Awake and alert. No obvious cranial nerve deficits. Motor grossly within normal limits. Normal speech. PSYCHIATRIC: Appropriate mood and affect; insight and judgment normal. Data Data Last Documented VS Vital Signs Date Time Temp Pulse Resp B/P (MAP) Pulse Ox O2 Delivery O2 Flow Rate FiO2 01/11/18 13:00 80 16 80/56 (64) 96 Nasal Cannula 3.00 01/11/18 08:11 97.5 Orders Orders Electrocardiogram (01/11/18 08:17) Ckmb (Isoenzyme) Profile (01/11/18 08:17) Complete Blood Count With Diff (01/11/18 08:17) Comprehensive Metabolic Panel (01/11/18 08:17) Magnesium (Mg) (01/11/18 08:17) Prothrombin Time / Inr (Pt) (01/11/18 08:17) Act Partial Throm Time (Ptt) (01/11/18 08:17) Troponin I (01/11/18 08:17) Chest, Single Ap (01/11/18 08:17) Ecg Monitoring (01/11/18 08:17) Iv Access Insert/Monitor (01/11/18 08:17) Oximetry (01/11/18 08:17) Oxygen Administration (01/11/18 08:17) Sodium Chloride 0.9% Flush (Ns Flush) (01/11/18 08:30) Sodium Chlorid 0.9% 500 Ml Inj (Ns 500 M (01/11/18 08:30) Ed Poc Ultrasound (01/11/18 ) Sodium Chlorid 0.9% 500 Ml Inj (Ns 500 M (01/11/18 09:45) CKMB (01/11/18 09:00) CKMB% (01/11/18 09:00) Ct Thorax/ Chest Wo Iv Contras (01/11/18 ) Ventilation & Perfusion Scan (01/11/18 ) B-Type Natriuretic Peptide (01/11/18 10:02) Lactic Acid (01/11/18 10:02) Echo 2d Comp With Doppler (01/11/18 ) Albumin (01/11/18 13:22) Sodium Chlor 0.9% 1000 Ml Inj (Ns 1000 M (01/11/18 13:30) Albumin 25% Inj (Albumin 25% Inj) (01/11/18 13:30) Sodium Chlorid 0.9% 500 Ml Inj (Ns 500 M (01/11/18 13:45) Vascular Access Team Consult/P PRN (01/11/18 13:36) Vascular Poc Ultrasound (01/11/18 ) Admit Order (Ed Use Only) (01/11/18 ) Consult Medical Oncology (01/11/18 ) Ldh Serum (01/11/18 09:00) Labs Laboratory Tests Test 01/11/18 09:00 White Blood Count 5.9 TH/MM3 Red Blood Count 5.03 MIL/MM3 Hemoglobin 13.0 GM/DL Hematocrit 41.6 % Mean Corpuscular Volume 82.7 FL Mean Corpuscular Hemoglobin 25.8 PG Mean Corpuscular Hemoglobin Concent 31.2 % Red Cell Distribution Width 19.5 % Platelet Count 379 TH/MM3 Mean Platelet Volume 8.6 FL Neutrophils (%) (Auto) 89.1 % Lymphocytes (%) (Auto) 5.3 % Monocytes (%) (Auto) 4.7 % Eosinophils (%) (Auto) 0.2 % Basophils (%) (Auto) 0.7 % Neutrophils # (Auto) 5.3 TH/MM3 Lymphocytes # (Auto) 0.3 TH/MM3 Monocytes # (Auto) 0.3 TH/MM3 Eosinophils # (Auto) 0.0 TH/MM3 Basophils # (Auto) 0.0 TH/MM3 CBC Comment DIFF FINAL Differential Comment Blood Urea Nitrogen 13 MG/DL Creatinine 2.27 MG/DL Random Glucose 91 MG/DL Total Protein 5.9 GM/DL Albumin 2.1 GM/DL Calcium Level 8.1 MG/DL Magnesium Level 1.7 MG/DL Alkaline Phosphatase 108 U/L Aspartate Amino Transf (AST/SGOT) 36 U/L Alanine Aminotransferase (ALT/SGPT) LESS THAN 6 U/L Total Bilirubin 0.4 MG/DL Sodium Level 139 MEQ/L Potassium Level 4.1 MEQ/L Chloride Level 107 MEQ/L Carbon Dioxide Level 17.2 MEQ/L Anion Gap 15 MEQ/L Estimat Glomerular Filtration Rate 37 ML/MIN Total Creatine Kinase 188 U/L Creatine Kinase MB 18.4 NG/ML Troponin I 1.35 NG/ML B-Type Natriuretic Peptide 798 PG/ML MDM Medical Decision Making Medical Screen Exam Complete: Yes Emergency Medical Condition: Yes Differential Diagnosis Pericardial effusion, pleural effusion, dehydration, acute kidney injury, failure to thrive, hypoxic respiratory failure peer Narrative Course Patient on reassess only has complaints of thirst. I am still waiting for his coags discussed the patient's care with interventional radiology, it appears as though he has malignant effusion which may be the base of his symptoms. He is fairly hypotension and for the most part is not responded to a liter of fluid already given. His albumin of returns at 2.1 and I have ordered albumin replacement and additional 500 cc of fluid. The patient certainly would be at risk of fluid shift after interventional radiology procedure. I discussed this with Dr. Lugo and he agrees the patient needs to be in the intensive care unit. There is no indication to start pressors at this time. His chest x-ray does show mild infiltrate which is chronic for him, he has not been febrile not coughing. This may be delayed resolution of his previous pneumonia. I will defer antibiotics to the inpatient team at this time. The patient also was discussed with Dr. Chyna Jamil who agrees for a stat echo. Patient was given a total of 1500 cc of fluid as well as 25 g at 25% albumin in the emergency department, he was discussed with Dr. Quintanilla for admission to the medical ICU, I have also discussed with his mother again as well as Dr. Gaspar. Patient was also briefly discussed with the interventional radiology team for consideration of urgent thoracentesis in the near future. For the moment he is saturating quite well and is not tachypneic and I think this can wait for a sterile environment and sterile technique rather than sub-sterilely ER procedure. Critical Care Narrative Aggregate critical care time was 35 minutes. Time to perform other separately billable procedures was not included in the critical care time. My time did not include minutes spent treating any other patients simultaneously or on activities that did not directly contribute to the patient's treatment. The services I provided to this patient were to treat and/or prevent clinically significant deterioration that could result in: , disability, organ failure I provided critical care services requiring my management, as noted below: Chart data review, documentation time, medication orders and management, vital sign assessments/reviewing monitor data, ordering and reviewing lab tests, ordering and interpreting/reviewing x-rays and diagnostic studies, care of the patient and discussion of the patient with the admitting physicians. Diagnosis Primary Impression: Acute respiratory failure with hypoxia Additional Impression: Pleural effusion Admitting Information Admitting Physician Requests: Admit Condition: Fidel Ayala MD Jan 11, 2018 08:23
[2018-01-11] MEDS ORDERED: SODIUM CHLORIDE 0.9% FLUSH 10 ML FLUSH IVF PRN (08:30)
[2018-01-11] MEDS ORDERED: SODIUM CHLORID 0.9% 500 ML INJ 500 ML IV ONE ×3 (08:30→13:45)
[2018-01-11 09:26] LABS: AUTOMATED NEUTROPHIL # 5.3 TH/MM3 (1.8-7.7); BASOPHIL % 0.7 % (0.0-2.0); EOSINOPHIL % 0.2 % (0.0-4.0); HEMATOCRIT 41.6 % (39.0-51.0); LYMPH % 5.3 % (9.0-44.0); LYMPHOCYTE # 0.3 TH/MM3 (1.0-4.8); MEAN CELL VOLUME 82.7 FL (80.0-100.0); MEAN CORPUSCULAR HEMOGLOBIN 25.8 PG (27.0-34.0); MEAN CORPUSCULAR HGB CONC 31.2 % (32.0-36.0); MEAN PLATELET VOLUME 8.6 FL (7.0-11.0); MONO % 4.7 % (0.0-8.0); MONOCYTE # 0.3 TH/MM3 (0-0.9); NEUT % 89.1 % (16.0-70.0); PLATELET COUNT 379 TH/MM3 (150-450); RED BLOOD COUNT 5.03 MIL/MM3 (4.50-5.90); RED CELL DISTRIBUTION WIDTH 19.5 % (11.6-17.2); WHITE BLOOD COUNT 5.9 TH/MM3 (4.0-11.0)
--- NOTE | 2018-01-11 09:26 | RADRPT ---
EXAM DATE/TIME: 01/11/2018 08:18 [facility] COMPARISON: CHEST SINGLE AP, December 31, 2017, 5:00. INDICATIONS : Shortness of breath. MEDICAL HISTORY : Lymphoma. Hypertension, A-Fib SURGICAL HISTORY : Thoracotomy, [id number] ENCOUNTER: Initial ACUITY: 1 day PAIN SCORE: 0/10 LOCATION: Bilateral chest FINDINGS: Some patchy non-consolidative infiltrates have developed in the medial left lower lung causing loss o f delineation of a portion of the medial left hemidiaphragm. Opacity at the right base could represe nt either consolidation or pleural effusion. The upper lungs are clear. [id number] catheter tip in the right atrium. The heart is normal size. CONCLUSION: Interval development of non-consolidative infiltrate medial left lower lung. Infiltrate or pleural e ffusion on the right side. Bryon Evans MD on January 11, 2018 at 9:23 Board Certified Radiologist. This report was verified electronically.
[2018-01-11 09:44] LABS: ALT (GPT) LESS THAN 6 U/L (12-78)
[2018-01-11 09:46] LABS: ALBUMIN 2.1 GM/DL (3.4-5.0); AST (GOT) 36 U/L (15-37); BICARBONATE 17.2 MEQ/L (21.0-32.0); BLOOD UREA NITROGEN 13 MG/DL (7-18); CALCIUM 8.1 MG/DL (8.5-10.1); CHLORIDE 107 MEQ/L (98-107); CREATININE 2.27 MG/DL (0.60-1.30); GLOMERULAR FILTRATION RATE 37 ML/MIN (>89); GLUCOSE,RANDOM 91 MG/DL (74-106); MAGNESIUM 1.7 MG/DL (1.5-2.5); SODIUM (NA) 139 MEQ/L (136-145)
[2018-01-11 09:50] LABS: ALKALINE PHOSPHATASE 108 U/L (45-117); TOTAL BILIRUBIN ADULT 0.4 MG/DL (0.2-1.0); TOTAL PROTEIN 5.9 GM/DL (6.4-8.2)
[2018-01-11 09:57] LABS: TROPONIN I 1.35 NG/ML (0.02-0.05)
--- NOTE | 2018-01-11 10:48 | RADRPT ---
EXAM DATE/TIME: 01/11/2018 10:21 [facility] COMPARISON: CT THORAX W/O CONTRAST, December 30, 2017, 11:28. INDICATIONS : Shortness of breath RADIATION DOSE: 4.62 CTDIvol (mGy) MEDICAL HISTORY : Hypertension. Lymphoma. Pulmonary embolism SURGICAL HISTORY : None. ENCOUNTER: Initial ACUITY: 2 days PAIN SCALE: 2/10 LOCATION: chest TECHNIQUE: Volumetric scanning of the chest was performed. Using automated exposure control and adjustment of t he mA and/or kV according to patient size, radiation dose was kept as low as reasonably achievable to obtain optimal diagnostic quality images. DICOM format image data is available electronically for r eview and comparison. Follow-up recommendations for detected pulmonary nodules are based at a minimum on nodule size and pa tient risk factors according to Fleischner Society Guidelines. FINDINGS: LUNGS: Consolidation with air bronchograms in the right lower lung, similar to prior. Some compressive atel ectasis adjacent to the left pleural effusion without focal consolidation. PLEURAE: There large bilateral pleural effusions, right greater than left with right pleural effusion measurin g 4.6 cm and the left pleural effusion measuring 2.0 cm. The size of the effusion has increased slig htly when compared to the prior CT scan. MEDIASTINUM: Poor delineation of the middle mediastinal structures due to the absence of mediastinal fat and no in travenous contrast. 5.3 x 3.2 cm low-density mass in the posterior mediastinum adjacent and inferior to the right main bronchus is similar in size to prior CT. Low density areas in the aortopulmonary window are also stable. AXILLAE: Within normal limits. No lymphadenopathy. MUSCULOSKELETAL: Within normal limits for patient age. CONCLUSION: 1. Bilateral pleural effusions, slightly larger than on prior CT 12/30/17. 2. 5 cm mass in the posterior mediastinum, similar to prior CT. The mediastinal structures are subop timally evaluated due to the absence of mediastinal fat and lack of intravenous contrast. 3. Persistent right lower lobe consolidation. Bryon Evans MD on January 11, 2018 at 10:42 Board Certified Radiologist. This report was verified electronically.
--- NOTE | 2018-01-11 12:20 | RADRPT ---
EXAM DATE/TIME: 01/11/2018 11:00 [facility] COMPARISON: CT THORAX W/O CONTRAST, January 11, 2018, 10:21. INDICATIONS : Dyspnea with chest pain. DOSE: 0.93 mCi Tc99m DTPA 8.8 mCi Tc99m MAA MEDICAL HISTORY : Hypertension. Non Hodgkins Lymphoma. SURGICAL HISTORY : Pericardial window. ENCOUNTER: Initial ACUITY: 1 week PAIN SCALE: 1/10 LOCATION: Left chest TECHNIQUE: Following five minutes of tidal breathing of DTPA aerosol, planar images of the lungs were performed in eight projections. The patient was then injected with MAA, and eight-view perfusion scan was perf ormed. FINDINGS: There is a homogeneous pattern of aerosol delivery to the periphery of both lungs. No focal ventilat ory defects are seen. The perfusion lung scan demonstrates a homogenous pattern of uptake in both lungs. No segmental or s ubsegmental defects are seen. CONCLUSION: 1. The examination is negative for pulmonary embolus. Adama Briceño MD on January 11, 2018 at 12:16 Board Certified Radiologist. This report was verified electronically.
[2018-01-11] MEDS ORDERED: ALBUMIN 25% INJ 100 ML IV ONE (13:30)
[2018-01-11] MEDS ORDERED: SODIUM CHLOR 0.9% 1000 ML INJ 1,000 ML IV ONE (13:30)
[2018-01-11] MEDS ORDERED: MISCELLANEOUS NURSING INFORMATION XX SCH (14:00)
[2018-01-11] MEDS ORDERED: CHLORHEXIDINE GLUCONATE 2 % 1 PACK (2 CLOTHS) TOP PRN (14:00)
[2018-01-11] MEDS ORDERED: SENNOSIDES 8.6 MG TAB PO PRN (14:00)
[2018-01-11] MEDS ORDERED: LACTULOSE SYRUP 20 GM/30 ML CUP PO PRN (14:00)
[2018-01-11] MEDS ORDERED: ACETAMINOPHEN 325 MG TAB PO PRN (14:00)
[2018-01-11] MEDS ORDERED: SODIUM CHLORIDE 0.9% FLUSH 10 ML FLUSH IV FLUSH PRN (14:00)
[2018-01-11] MEDS ORDERED: RESP: ALBUTEROL 2.5 MG/3 ML NEB (PRN) INH (14:00)
[2018-01-11] MEDS ORDERED: MAGNESIUM HYDROXIDE SUSP 30 ML CUP PO PRN (14:00)
[2018-01-11] MEDS ORDERED: ONDANSETRON HCL 4 MG/2 ML VIAL IV PUSH PRN (14:00)
[2018-01-11] MEDS ORDERED: BISACODYL 10 MG SUPP RECTAL PRN (14:00)
[2018-01-11] MEDS: RESP: ALBUTEROL 2.5 MG/IPRATROPIUM 0.5 MG NEB (SCH) INH ×2 (14:13→22:30)
[2018-01-11 16:04] LABS: PROTHROMBIN TIME - PATIENT 29.9 SEC (9.8-11.6)
[2018-01-11 16:27] LABS: ALBUMIN 2.6 GM/DL (3.4-5.0)
[2018-01-11] MEDS: SODIUM CHLOR 0.9% 1000 ML INJ 1,000 ML IV SCH (16:46)
--- NOTE | 2018-01-11 17:35 | HHI.HP ---
[facility] Service Critical Care Medicine Primary Care Physician Ruslan Connelly MD Admission Diagnosis Hypoxia, Hypotension, Pleural Effusion Diagnosis: Chief Complaint: Can't breathe. Travel History International Travel<30 Days: No Contact w/Intl Traveler <30 Da: No Traveled to Known Affected Are: No History of Present Illness This 47-year-old man with recently diagnosed non-Hodgkin's lymphoma, B-cell type , presents to the emergency department with worsening shortness of breath over the past 2 days. Particularly troublesome as his room air oxygen saturation of 80%. CAT scan of the chest shows hypovolemia and large bilateral pleural effusions. Aside from a fading parenchymal pneumonitis the lung canas are clear. There is a small amount of pericardial fluid is well. Cardiac echo is pending at this point but we know from history that he has a markedly depressed ventricular function. He is an Entresto has been held because of hypotension. On physical exam the gentleman appears markedly dehydrated but his B natruretic peptide is also markedly hydrated. My impression is that we will just have to gingerly hydrate this gentleman and follow his pulmonary exam. There is no evidence of sepsis at this time. PAST MEDICAL HISTORY: 1. High grade B cell lymphoma. 2. Hypertension. 3. Pulmonary embolism. 4. Renal failure. 5. Bacterial endocarditis. 6. Cardiomyopathy. 7. Pleural effusion. 8. Infected port. 9. History of MRSA. 10. History of C. difficile colitis. Review of Systems Cardiovascular: COMPLAINS OF: Dyspnea on Exertion Past Family Social History Allergies: Coded Allergies: Milk Containing Products (Verified Allergy, Mild, diarrhea, 01/11/18) Past Medical History Past Medical History Hx Anticoagulant Therapy: Yes Atrial Fibrillation: Yes Autoimmune Disease: No Cancer: Yes (NONHODGKINS LYMPHOMA ) Cardiovascular Problems: Yes Chemotherapy: Yes Hypertension: Yes Immune Disorder: No Implanted Vascular Access Dvce: Yes (PORT RIGHT CHEST) Respiratory: Yes (Pulmonary embolism in past) Past Surgical History Other Surgery: Yes Social History Alcohol Use: No (quit 02/2017) Tobacco Use: No (quit 02/2017) Substance Use: No (tried weed) Allergies-Medications Allergies-Medications (Allergen,Severity, Reaction): Coded Allergies: Milk Containing Products (Verified Allergy, Mild, diarrhea, 01/11/18) Reported Meds & Prescriptions Reported Meds & Active Scripts Active Percocet (Oxycodone-Acetaminophen) 5-325 mg Tab 1 Tab PO Q6H PRN Coumadin (Warfarin) 3 Mg Tab 3 Mg PO DAILY@1600 Reported Protonix (Pantoprazole Sodium) 40 Mg Tab 40 Mg PO DAILY Entresto (Sacubitril-Valsartan) 24-26 Mg Tab 1 Tab PO BID Calcium Carbonate 1,500 Mg Tab 1,500 Mg PO DAILY 1,500 mg calcium carbonate (600 mg elemental calcium) Physical Exam Vital Signs Vital Signs Date Time Temp Pulse Resp B/P (MAP) Pulse Ox O2 Delivery O2 Flow Rate FiO2 01/11/18 16:00 84 01/11/18 16:00 97.7 83 16 95/62 (73) 98 01/11/18 15:52 97.7 83 16 95/62 (73) 98 01/11/18 15:05 01/11/18 15:00 84 18 96/64 (75) 100 Nasal Cannula 3.00 01/11/18 14:12 98 Nasal Cannula 3.00 01/11/18 14:00 84 16 100/73 (82) 100 Nasal Cannula 3.00 01/11/18 13:00 80 16 80/56 (64) 96 Nasal Cannula 3.00 01/11/18 12:30 84 16 89/72 (78) 99 Nasal Cannula 3.00 01/11/18 11:00 80 18 90/66 (74) 96 Nasal Cannula 3.00 01/11/18 10:00 74 18 85/61 (69) 95 Nasal Cannula 2.00 01/11/18 09:00 80 20 86/59 (68) 94 Nasal Cannula 3.00 01/11/18 08:19 100 Nasal Cannula 3.00 01/11/18 08:19 22 100 Nasal Cannula 3.00 01/11/18 08:11 97.5 79 20 87/59 (68) 97 01/11/18 08:11 22 100 Nasal Cannula 3.00 Physical Exam General: Lethargic Head: Sunken eyes, temporal muscle wasting Neck: Supple, airway widely patent Lungs: Clear bilaterally without wheezes or crackles. Decreased breath sounds both bases. Heart: Normal S1-S2, sinus rhythm mid 80s, neck veins are flat Abdomen: No guarding no tenderness bowel sounds are present Extremities: Warm adequately perfused. Skin turgor poor Neuro: Conversant, oriented 3, moves 4 extremities spontaneously Laboratory Laboratory Tests Test 01/11/18 09:00 01/11/18 15:22 White Blood Count 5.9 Red Blood Count 5.03 Hemoglobin 13.0 Hematocrit 41.6 Mean Corpuscular Volume 82.7 Mean Corpuscular Hemoglobin 25.8 Mean Corpuscular Hemoglobin Concent 31.2 Red Cell Distribution Width 19.5 Platelet Count 379 Mean Platelet Volume 8.6 Neutrophils (%) (Auto) 89.1 Lymphocytes (%) (Auto) 5.3 Monocytes (%) (Auto) 4.7 Eosinophils (%) (Auto) 0.2 Basophils (%) (Auto) 0.7 Neutrophils # (Auto) 5.3 Lymphocytes # (Auto) 0.3 Monocytes # (Auto) 0.3 Eosinophils # (Auto) 0.0 Basophils # (Auto) 0.0 CBC Comment DIFF FINAL Differential Comment Blood Urea Nitrogen 13 Creatinine 2.27 Random Glucose 91 Total Protein 5.9 Albumin 2.1 2.6 Calcium Level 8.1 Magnesium Level 1.7 Alkaline Phosphatase 108 Aspartate Amino Transf (AST/SGOT) 36 Alanine Aminotransferase (ALT/SGPT) LESS THAN 6 Total Bilirubin 0.4 Sodium Level 139 Potassium Level 4.1 Chloride Level 107 Carbon Dioxide Level 17.2 Anion Gap 15 Estimat Glomerular Filtration Rate 37 Total Creatine Kinase 188 Creatine Kinase MB 18.4 Troponin I 1.35 B-Type Natriuretic Peptide 798 Prothrombin Time 29.9 Prothromb Time International Ratio 3.0 Activated Partial Thromboplast Time 32.7 Lactic Acid Level 3.2 Lactate Dehydrogenase 835 Result Diagram: 01/11/18 0900 01/11/18 0900 Caprini VTE Risk Assessment Caprini VTE Risk Assessment: Mod/High Risk (score >= 2) Caprini Risk Assessment Model Point Value = 1 Point Value = 2 Point Value = 3 Point Value = 5 Age 41-60 Minor surgery BMI > 25 kg/m2 Swollen legs Varicose veins or History of unexplained or recurrent spontaneous Oral contraceptives or hormone replacement Sepsis (< 1 month) Serious lung disease, including pneumonia (< 1 month) Abnormal pulmonary function Acute myocardial infarction Congestive heart failure (< 1 month) History of inflammatory bowel disease Medical patient at bed rest Age 61-74 Arthroscopic surgery Major open surgery (> 45 min) Laparoscopic surgery (> 45 min) Malignancy Confined to bed (> 72 hours) Immobilizing plaster cast Central venous access Age >= 75 History of VTE Family history of VTE Factor V Leiden Prothrombin [id number] Lupus anticoagulant Anticardiolipin antibodies Elevated serum homocysteine Heparin-induced thrombocytopenia Other congenital or acquired thrombophilia Stroke (< 1 month) Elective arthroplasty Hip, pelvis, or leg fracture Acute spinal cord injury (< 1 month) Prophylaxis Regimen Total Risk Factor Score Risk Level Prophylaxis Regimen 0-1 Low Early ambulation 2 Moderate Order ONE of the following: *Sequential Compression Device (SCD) *Heparin 5000 units SQ BID 3-4 Higher Order ONE of the following medications: *Heparin 5000 units SQ TID *Enoxaparin/Lovenox 40 mg SQ daily (WT < 150 kg, CrCl > 30 mL/min) *Enoxaparin/Lovenox 30 mg SQ daily (WT < 150 kg, CrCl > 10-29 mL/min) *Enoxaparin/Lovenox 30 mg SQ BID (WT < 150 kg, CrCl > 30 mL/min) AND/OR *Sequential Compression Device (SCD) 5 or more Highest Order ONE of the following medications: *Heparin 5000 units SQ TID (Preferred with Epidurals) *Enoxaparin/Lovenox 40 mg SQ daily (WT < 150 kg, CrCl > 30 mL/min) *Enoxaparin/Lovenox 30 mg SQ daily (WT < 150 kg, CrCl > 10-29 mL/min) *Enoxaparin/Lovenox 30 mg SQ BID (WT < 150 kg, CrCl > 30 mL/min) AND *Sequential Compression Device (SCD) Assessment and Plan Assessment and Plan Assessment: 1. Moderate dehydration 2. Hypotension 3. Large bilateral pleural effusions 4. Small pericardial effusion 5. Non-Hodgkin's lymphoma Plan: 1. Repeat cardiac echo, looking specifically at wall motion and overall function, pericardial effusion 2. Hold anticoagulation for probable thoracentesis 3. Gentle hydration with isotonic crystalloid. 4. Follow renal function and natruretic peptide closely 5. Pepcid for GI ulcer prophylaxis 6. Patient is fully anticoagulated, hold SCDs tonight, skin will macerate until hydrated 7. BMP, BNP in a.m. Overall impression: Patient arrived in critical condition but has responded well to hydration. High risk for worsening heart failure. Presently breathing more comfortably after aggressive early hydration. No evidence of sepsis or infection. Critical Care 44 mins Sergio Torrez MD Jan 11, 2018 17:35
[2018-01-11] MEDS: ARTIFICIAL TEARS OPTH SOLN 15 ML BTL EACH EYE SCH (18:00)
--- NOTE | 2018-01-11 19:09 | ECHRPT ---
Indication: Heart Failure CONCLUSIONS The left ventricular systolic function is normal with an estimated ejection fraction of 55%. Mild left ventricular hypertrophy. Normal left ventricular size. Moderate thickening of the mitral valve leaflets. Mild pulmonary valve regurgitation. There is a small pericardial effusion present. A left sided pleural effusion is present. Suspect left atrial mass. Recommend cardiac MRI for further evaluation. BP: 90 / 66 HR: 83 Rhythm: Sinus MEASUREMENTS (Male / Female) Normal Values Technical Quality:Fair 2D ECHO LV Diastolic Diameter PLAX 3.8 cm 4.2 - 5.9 / 3.9 - 5.3 cm LV Systolic Diameter PLAX 3.2 cm IVS Diastolic Thickness 1.1 cm 0.6 - 1.0 / 0.6 - 0.9 cm LVPW Diastolic Thickness 1.7 cm 0.6 - 1.0 / 0.6 - 0.9 cm LV Relative Wall Thickness 0.7 RV Internal Dim ED PLAX 2.0 cm LVOT Diameter 2.2 cm M-MODE Aortic Root Diameter MM 2.8 cm AV Cusp Separation MM 2.1 cm DOPPLER AV Peak Velocity 76.7 cm/s AV Peak Gradient 2.4 mmHg LVOT Peak Velocity 65.7 cm/s LVOT Peak Gradient 1.7 mmHg AV Area Cont Eq pk 3.3 cm MV Area PHT 3.2 cm Mitral E Point Velocity 46.4 cm/s Mitral A Point Velocity 26.2 cm/s Mitral E to A Ratio 1.8 LV E' Lateral Velocity 2.1 cm/s Mitral E to LV E' Lateral Ratio 21.7 LV E' Septal Velocity 3.4 cm/s Mitral E to LV E' Septal Ratio 13.6 FINDINGS LEFT VENTRICLE The left ventricular systolic function is normal with an estimated ejection fraction of 55%. Normal left ventricular size. Mild LVH. RIGHT VENTRICLE Normal right ventricular size and systolic function. LEFT ATRIUM The left atrial size is normal. Suspect left atrial mass. RIGHT ATRIUM The right atrial size is normal. ATRIAL SEPTUM Normal atrial septal thickness without atrial level shunting by limited color doppler interrogation. AORTA The aortic root and proximal ascending aorta are normal in size on limited imaging. MITRAL VALVE Moderate thickening of the mitral valve leaflets. AORTIC VALVE Trileaflet aortic valve. No aortic valve stenosis or regurgitation. TRICUSPID VALVE Structurally normal tricuspid valve. No tricuspid valve stenosis or regurgitation. PULMONARY VALVE Mild pulmonary valve regurgitation. VESSELS The inferior vena cava is normal in size. PERICARDIUM There is a small pericardial effusion present. A left sided pleural effusion is present. Mayra Azul MD, FACC (Electronically Signed) Final Date:11 January 2018 19:07
[2018-01-11] MEDS: SODIUM CHLORIDE 0.9% FLUSH 10 ML FLUSH IV FLUSH SCH (21:00)
[2018-01-11] MEDS: DOCUSATE SODIUM 50 MG/SENNA 8.6 MG TAB PO SCH (21:00)
[2018-01-12] VITALS (14 sets, daily range): BP systolic 99–122; BP diastolic 61–88; PULSE 90–97; RESP 18–40; TEMP 97.9–99.1; O2SAT 93–97
[2018-01-12] MEDS: SODIUM CHLOR 0.9% 1000 ML INJ 1,000 ML IV SCH ×3 (01:41→20:21)
[2018-01-12] MEDS: RESP: ALBUTEROL 2.5 MG/IPRATROPIUM 0.5 MG NEB (SCH) INH ×4 (03:12→20:54)
[2018-01-12] MEDS: CHLORHEXIDINE GLUCONATE 2 % 1 PACK (2 CLOTHS) TOP SCH (04:00)
[2018-01-12 04:08] LABS: BASOPHIL % 0.2 % (0.0-2.0); EOSINOPHIL % 0.1 % (0.0-4.0); HEMATOCRIT 33.3 % (39.0-51.0); HEMOGLOBIN 10.7 GM/DL (13.0-17.0); LYMPHOCYTE # 0.2 TH/MM3 (1.0-4.8); MEAN CELL VOLUME 81.4 FL (80.0-100.0); MEAN CORPUSCULAR HEMOGLOBIN 26.1 PG (27.0-34.0); MEAN PLATELET VOLUME 8.1 FL (7.0-11.0); MONOCYTE # 0.5 TH/MM3 (0-0.9); NEUT % 89.7 % (16.0-70.0); PLATELET COUNT 275 TH/MM3 (150-450); RED BLOOD COUNT 4.09 MIL/MM3 (4.50-5.90); RED CELL DISTRIBUTION WIDTH 19.6 % (11.6-17.2); WHITE BLOOD COUNT 7.8 TH/MM3 (4.0-11.0)
[2018-01-12 04:09] LABS: INTERNATIONAL NORMALIZED RATIO 3.5 RATIO; PROTHROMBIN TIME - PATIENT 35.1 SEC (9.8-11.6)
[2018-01-12 04:32] LABS: ALBUMIN 2.4 GM/DL (3.4-5.0); AST (GOT) 54 U/L (15-37); BICARBONATE 14.3 MEQ/L (21.0-32.0); BLOOD UREA NITROGEN 14 MG/DL (7-18); CALCIUM 7.9 MG/DL (8.5-10.1); CHLORIDE 113 MEQ/L (98-107); CREATININE 1.61 MG/DL (0.60-1.30); GLOMERULAR FILTRATION RATE 56 ML/MIN (>89); GLUCOSE,RANDOM 77 MG/DL (74-106); MAGNESIUM 1.4 MG/DL (1.5-2.5); SODIUM (NA) 144 MEQ/L (136-145)
[2018-01-12 04:35] LABS: ALKALINE PHOSPHATASE 90 U/L (45-117); ALT (GPT) LESS THAN 6 U/L (12-78); PHOSPHORUS 3.4 MG/DL (2.5-4.9); TOTAL BILIRUBIN ADULT 0.4 MG/DL (0.2-1.0); TOTAL PROTEIN 5.7 GM/DL (6.4-8.2)
[2018-01-12] MEDS ORDERED: PHYTONADIONE INJ 10 MG in SODIUM CHLORIDE 0.9% INJ 50 ML IV ONE (07:15)
[2018-01-12] MEDS: SODIUM CHLORIDE 0.9% FLUSH 10 ML FLUSH IV FLUSH SCH ×2 (07:55→21:55)
--- NOTE | 2018-01-12 08:43 | MB ---
cc: Ruslan Connelly MD DATE: 01/12/2018 ATTENDING PHYSICIAN: Dr. Quintanilla. REASON FOR CONSULTATION: Oncology consulted to rendered an opinion regarding patient with lymphoma admitted with shortness of breath. 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 He had extensive mediastinal, cervical, bilateral axillary adenopathy. He also had extensive mesenteric and retroperitoneal adenopathy. Biopsy of left axillary lymph node showed diffuse large B cell lymphoma triple-hit. He completed 5 cycles of Rituxan and EPOCH, but unfortunately chemotherapy had to stop because he developed sepsis with bacterial endocarditis. He also subsequently developed severe cardiomyopathy with ejection fraction down to the 20s. He developed progression of disease when he was off chemotherapy. His performance status improved and he was given 1 cycle of Rituxan, bendamustine 12/15/2017. He was admitted to the hospital 12/30/2017 when he was found to have a significant pericardial effusion and possible cardiac tamponade. He had a subxiphoid window procedure. The pericardial fluid cytology and pericardial biopsy showed lymphoma. He started having increased shortness of breath again about 3 days ago. It is progressively getting worse and he came to the emergency room. He denies any chest pain. Denies any fever or chills. He said that he felt better since the last cycle of chemotherapy. He denies any nausea, vomiting, diarrhea, abdominal pain, dysuria, or hematuria. He denies any bleeding or bruising. When he came to the hospital, CT scan showed increased bilateral pleural effusion. He was hypoxic and was admitted to the intensive care unit. PAST MEDICAL HISTORY: 1. High grade B cell lymphoma. 2. Malignant pericardial effusion. 3. Hypertension. 4. Pulmonary embolism. 5. Renal failure. 6. Bacterial endocarditis. 7. Cardiomyopathy. 8. Pleural effusion. 9. Infected port. 10. History of methicillin-resistant Staphylococcus aureus infection. 11. History of Clostridium difficile colitis. PAST SURGICAL HISTORY: 1. Port placement. 2. Bone marrow biopsy. 3. Left axillary lymph node resection. 4. subxiphoid window procedure. FAMILY HISTORY: He has 5 brothers and 3 sisters. No cancer in the family. SOCIAL HISTORY: He stopped smoking 06/2017. He also has stopped drinking alcohol. He lives with his mother. ALLERGIES: NO KNOWN DRUG ALLERGIES. MEDICATIONS: 1. Os-Gilberto. 2. Protonix. 3. Porsha-Colace. 4. DuoNebs. 5. Coumadin, which is on hold. REVIEW OF SYSTEMS: CONSTITUTIONAL: Denies any fever, chills, night sweats. EYES: Negative. ENT: Negative. CARDIOVASCULAR: As above. RESPIRATORY: As above. GASTROINTESTINAL: Denies nausea, vomiting, diarrhea or abdominal pain. GENITOURINARY: No dysuria or hematuria. MUSCULOSKELETAL: Negative. HEMATOLOGIC: As above. ENDOCRINE: Negative. DERMATOLOGY: Negative. PSYCHIATRIC: Negative. NEUROLOGIC: Negative. PHYSICAL EXAMINATION: VITAL SIGNS: Temperature 97.9, blood pressure 110/72, O2 saturation 93% on 2 liters nasal cannula. GENERAL: He is alert, oriented x 3, in no acute distress. HEENT: Atraumatic, normocephalic. Pupils are equal, round, reactive to light. Extraocular muscles are intact. No scleral icterus. Oropharynx, dry mucosa. No lesion, no thrush or mucositis. NECK: No thyromegaly. LYMPHATICS: The right supraclavicular adenopathy seems smaller. He has shotty axillary adenopathy. No inguinal adenopathy. CARDIOVASCULAR: Regular S1, S2. No murmur. LUNGS: Decreased breath sounds bilaterally. ABDOMEN: Soft, nontender. I could not palpate the liver or spleen. EXTREMITIES: No cyanosis, clubbing, or edema. BACK: No paravertebral tenderness. SKIN: No rash or petechiae. NEUROLOGIC: Nonfocal. LABORATORY DATA: WBC 7.8, hemoglobin 10.7, platelet count 275. Creatinine 1.61, total bilirubin 0.4. ASSESSMENT AND PLAN: 1. 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 He has a high risk lymphoma. He received 5 cycles of Rituxan and EPOCH with partial response. Chemotherapy was stopped when he developed sepsis and bacterial endocarditis. He also subsequently developed severe cardiomyopathy with an ejection fraction of around 25%. He developed progression of disease when he was off chemotherapy. His PET scan showed increased adenopathy in the mediastinum extending along the paraspinous region down to the abdomen. There was also uptake in the gastroesophageal junction area down to the angel hepatis. There were scattered retroperitoneal adenopathy and a few pulmonary nodules. He had 1 cycle of Rituxan, bendamustine 12/15/2017. His right supraclavicular adenopathy seems smaller. He had CT of thorax without contrast, which still showed the mediastinal adenopathy. He may have a partial response. I have talked to him and his mother multiple times about referring him for a bone marrow transplant which they have been declining. I think without a bone marrow transplant, he is not going to have a remission. His overall prognosis is guarded. 2. Bilateral pleural effusion, which I suspect is a malignant pleural effusion. He came in with shortness of breath. CT showed increased pleural effusions, right greater than left. He is going to go for a thoracentesis today. 3. Malignant pericardial effusion. He was admitted to the hospital 12/30/2017 with a large pericardial effusion and possible cardiac tamponade. He had a subxiphoid window procedure. Pericardial fluid cytology and pericardium were positive for lymphoma. A CT showed a small pericardial effusion at this time. 4. Cardiomyopathy, which developed after the bacterial endocarditis. He just had a repeat echocardiogram, ejection fraction is back up to 55%. 5. Recent history of bacterial endocarditis. 6. History of pulmonary embolism. He has been on Coumadin. INR is 3.3. PLAN: 1. Discussion with the patient as above. 2. Await therapeutic thoracentesis and please send pleural fluid for cytology. 3. Monitor CBC. 4. Continue supportive care. Thank you Dr. Quintanilla for asking me to see this patient. MD MELA Balbuena/LOLA , 08:03 AM , 08:42 AM RAVINDRA
[2018-01-12] MEDS: ARTIFICIAL TEARS OPTH SOLN 15 ML BTL EACH EYE SCH ×3 (08:56→18:00)
[2018-01-12] MEDS: CALCIUM CARBONATE 1.25 GM (CA 500 MG) TAB PO SCH (08:57)
[2018-01-12] MEDS: PANTOPRAZOLE SOD 40 MG DELAYED RELEASE TAB PO SCH (08:57)
[2018-01-12] MEDS: DOCUSATE SODIUM 50 MG/SENNA 8.6 MG TAB PO SCH ×2 (08:57→21:55)
[2018-01-12] MEDS ORDERED: PANTOPRAZOLE SOD 40 MG DELAYED RELEASE TAB PO SCH (09:00)
--- NOTE | 2018-01-12 09:58 | RADRPT ---
EXAM DATE/TIME: 01/12/2018 08:36 [facility] COMPARISON: CHEST SINGLE AP, January 11, 2018, 8:18. INDICATIONS : Respiratory distress. MEDICAL HISTORY : Hypertension. Non Hodgkins Lymphoma. SURGICAL HISTORY : Pericardial window. ENCOUNTER: Subsequent ACUITY: 2 days PAIN SCORE: 0/10 LOCATION: Bilateral chest FINDINGS: The [id number] in good position. The heart is mildly enlarged. There are bilateral effusions and atelectatic changes in both lung base s. This is worse when compared to previous dated . CONCLUSION: 1. Worsening effusions and interstitial edema. Adama Briceño MD on January 12, 2018 at 9:56 Board Certified Radiologist. This report was verified electronically.
--- NOTE | 2018-01-12 10:06 | HHI.CCPN ---
Subjective Remarks/Hospital Course This 47-year-old man with recently diagnosed non-Hodgkin's lymphoma, B-cell type , presents to the emergency department with worsening shortness of breath over the past 2 days. Particularly troublesome as his room air oxygen saturation of 80%. CAT scan of the chest shows hypovolemia and large bilateral pleural effusions. Aside from a fading parenchymal pneumonitis the lung canas are clear. There is a small amount of pericardial fluid is well. Cardiac echo is pending at this point but we know from history that he has a markedly depressed ventricular function. He is an Entresto has been held because of hypotension. On physical exam the gentleman appears markedly dehydrated but his B natriuretic peptide is also markedly hydrated. My impression is that we will just have to gingerly hydrate this gentleman and follow his pulmonary exam. There is no evidence of sepsis at this time. 01/12/18: Patient lying in bed slightly tachypneic. Chest x-ray shows at least moderate sized bilateral effusion. 2D echo yesterday showed probable atrial mass. Cardiac MRI ordered. Few nonsustained episodes of wide-complex tachycardia overnight. Troponin elevated, peaked at 3.6. Cardiology consulted. Start aspirin, will not tolerate beta blockers or MARLO inhibitors at this time Objective Vital Signs Date Time Temp Pulse Resp B/P (MAP) Pulse Ox O2 Delivery O2 Flow Rate FiO2 01/12/18 08:01 99.1 91 18 99/61 96 01/11/18 20:53 Nasal Cannula 3.00 Intake and Output 01/12/18 01/12/18 01/13/18 08:00 16:00 00:00 Intake Total 1000 ml 30 ml Balance 1000 ml 30 ml Result Diagram: 01/12/18 0349 01/12/18 0349 Objective Remarks General: Lethargic, slightly tachypneic Head: Sunken eyes, temporal muscle wasting Neck: Supple, airway widely patent Lungs: Clear bilaterally without wheezes or crackles. Decreased breath sounds both bases. Heart: Normal S1-S2, sinus rhythm mid 80s, neck veins are flat Abdomen: No guarding no tenderness bowel sounds are present Extremities: Warm adequately perfused. Skin turgor poor Neuro: Alert, oriented 3, moves 4 extremities spontaneously. No focal deficits A/P Assessment and Plan Assessment: NSTEMI Nonsustained ventricular tachycardia Respiratory insufficiency Moderate dehydration Hypotension Left atrial mass on echo Large bilateral pleural effusions Small pericardial effusion Non-Hodgkin's lymphoma Plan: -Consult cardiology, keep potassium more than 4, magnesium more than 2. -Cardiac MRI to evaluate left atrial mass -Repeat cardiac echo, EF 55%, probable left atrial mass -Hold anticoagulation for thoracentesis. Give 2 units of FFP and 10 mg IV vitamin K -Start aspirin 81 mg daily. At this time patient will not tolerate MARLO inhibitors or beta-blockers -Gentle hydration with isotonic crystalloid. -Follow renal function and natruretic peptide closely -Pepcid for GI ulcer prophylaxis -Patient is fully anticoagulated, hold SCDs, skin will macerate until hydrated -Follow-up labs chest x-ray in a.m. Overall impression: Patient arrived in critical condition with respiratory insufficiency pleural effusion nonsustained ventricular tachycardia and now with NSTEMI. High risk for worsening heart failure, and also respiratory decompensation. Continue ICU care Critical Care 32 mins Leona Balderrama MD Jan 12, 2018 10:06
--- NOTE | 2018-01-12 11:51 | PD.PROCEDR ---
Procedure Note Procedure Procedure: US guided Thoracentesis Indication: Large right pleural effusion A time-out was completed verifying correct patient, procedure, site, positioning , and special equipment if applicable. The patients right side was prepped and draped in a sterile manner after the appropriate infiltration level was confirmed and marked by ultrasound. 1% lidocaine was used anesthetize the surrounding skin. A 10-blade scalpel used to make the incision. The thoracentesis Angio cath was then introduced without difficulty and needle was removed. Catheter was connected to Vacutainer bottle and 1400 ml of slightly cloudy light yellow fluid was removed. A post-procedure chest x-ray was ordered and the fluid will be sent for several studies. Estimated Blood Loss: <1 ml The patient tolerated the procedure well and there were no immediate complications. Leona Balderrama MD Jan 12, 2018 11:51
[2018-01-12 12:55] LABS: TOTAL PROTEIN,PLEURAL FLUID 2.3 GM/DL
--- NOTE | 2018-01-12 13:28 | MB ---
cc: Terry Taveras DO DATE: 01/12/2018 REASON FOR CONSULTATION: Wide complex tachycardia, elevated troponin. HISTORY OF PRESENT ILLNESS: Jovani Werner is a pleasant 47-year-old male who presented to [facility] Emergency Room on 01/11/2018 due to worsening shortness of breath. Apparently, the patient was having a pulse oximetry of around 80% on room air. He states that the shortness of breath has been going on for about 3 days and has gotten progressively worse. He denies chest pain, fevers or chills. He was admitted to the ICU and was planned for a thoracentesis this morning. Overnight he did have a few short runs of wide complex tachycardia of anywhere from 4 to 10 beats. He was also found to have an elevated troponin increasing to 3.58. I was asked to see him due to his elevated troponin as well as wide complex tachycardia. In seeing him, he is currently hemodynamically stable with no chest pain. He is somewhat short of breath while at rest. PAST MEDICAL HISTORY: 1. High grade B-cell lymphoma. 2. Hypertension. 3. Pulmonary embolism. 4. Renal failure. 5. Bacterial endocarditis. 6. Cardiomyopathy. 7. Pleural effusion. 8. Infected port. 9. History of methicillin-resistant Staphylococcus aureus. 10. History of Clostridium difficile colitis. 11. Previous cardiomyopathy. PAST SURGICAL HISTORY: 1. Port placement. 2. Bone marrow biopsy. 3. Left axillary lymph node resection. 4. Subxiphoid window (12/30/2017) for malignant pericardial effusion. ALLERGIES: MILK. MEDICATIONS: 1. Coumadin 3 mg daily. 2. Entresto 24/26 b.i.d. 3. Percocet 5/325 every 6 hours as needed for pain. 4. Protonix 40 mg daily. FAMILY HISTORY: Denies premature coronary artery disease or sudden cardiac within the family. SOCIAL HISTORY: The patient previously smoked but quit in 06/2017. He has to stop drinking alcohol. REVIEW OF SYSTEMS: Fourteen systems were reviewed including osteopathic pertinent positives and negatives above, otherwise negative. PHYSICAL EXAMINATION: VITAL SIGNS: Temperature 99.1, heart rate 92, blood pressure 112/81, respirations 20, pulse oximetry 97% on room air. GENERAL: The patient appears in no acute distress, alert, awake and oriented x3. HEENT: Extraocular muscles intact. Mucous membranes moist. NECK: Supple. No JVD at 45 degrees. No carotid bruits heard bilaterally. Carotid upstroke is brisk in nature. HEART: Regular rate and rhythm. Positive first and second heart sounds with no noted murmurs, gallops or rubs. LUNGS: Decreased breath sounds at bilateral bases, but no overt wheezes, rales or rhonchi. ABDOMEN: Soft, nontender, nondistended. No organomegaly noted. EXTREMITIES: Show no clubbing, cyanosis or edema. Femoral and distal pulses intact bilaterally. NEUROLOGIC: No focal deficits. SKIN: Warm, dry and intact. OSTEOPATHIC: No kyphoscoliosis or paraspinal tender points. LABORATORY DATA: Hemoglobin 10.7, hematocrit 33.3, platelets 275. INR 3.5. Potassium 3.8, BUN 14, creatinine 1.61. Lactic acid 2.3. Troponin 3.58. BNP 798. ELECTROCARDIOGRAM (01/12/2018 at 08:54) Sinus rhythm, ST-T wave changes, anterior laterally, possibly due to ischemia. IMPRESSIONS: 1. Shortness of breath. 2. Pericardial effusion, possibly malignant in nature. 3. Non-ST elevation myocardial infarction. 4. Wide complex tachycardia. 5. Non-Hodgkin's lymphoma B cell. 6. Hypertension. 7. History of pulmonary embolism on Coumadin therapy. 8. Coagulopathy secondary to Coumadin therapy. 9. Acute kidney injury. 10. History of pericardial effusion status post subxiphoid window. 11. Ejection fraction of 55% with mild LVH by echocardiogram (01/11/2018). 12. Possible left atrial mass noted on echocardiogram (01/11/2018). RECOMMENDATIONS: 1. Mr. Werner obviously presents with a complex multitude of diagnosis and symptoms. 2. Agree with critical care standpoint that he should undergo thoracentesis due to his significant shortness of breath. 3. We will plan on him undergoing a cardiac MRI due to his left atrial mass. 4. As far as his wide complex tachycardia, it does appear to be somewhat regular and is most likely nonsustained ventricular tachycardia. We will plan on placing him on beta sharon therapy as tolerated by his blood pressure. 5. Agree with placing him on aspirin at this time. 6. He does have an ischemic-looking EKG as well as an elevated troponin and most likely will need an ischemic evaluation once more information is available. I did discuss this with him and he will consider it. I would wait until after further information is available about his left atrial mass before proceeding. 7. He did have a previous cardiomyopathy, but his ejection fraction appears to be somewhat back to normal with his most recent echo. 8. He was noted to have a magnesium level of 1.4, which may have caused his nonsustained ventricular tachycardia. The patient was overall asymptomatic during the episode. 9. Further recommendations will be made throughout the hospital course. Thank you for allowing me to see Jovani Werner. If you have any questions, please do not hesitate to call. Terry Taveras DO VGP/SB , 12:46 PM , 01:27 PM
[2018-01-12 14:00] LABS: PLEURAL FLUID RBC 4596 /MM3 (0-0); PLEURAL FLUID WBC 6900 /MM3 (0-10)
[2018-01-12 14:05] LABS: PLEURAL FLUID HISTIOCYTES 4 %; PLEURAL FLUID LYMPHS 92 %; PLEURAL FLUID POLYS (SEGS) 4 %
[2018-01-12] MEDS: ASPIRIN 81 MG CHEW TAB CHEW SCH (14:47)
[2018-01-12] MEDS: METOPROLOL TARTRATE 25 MG TAB PO SCH ×2 (14:47→21:55)
[2018-01-12] MEDS: MAGNESIUM SULFATE 1 GM PREMIX 100 ML IV SCH ×2 (14:48→21:55)
--- NOTE | 2018-01-12 15:38 | RADRPT ---
EXAM DATE/TIME: 01/12/2018 13:39 [facility] COMPARISON: CHEST SINGLE AP, January 12, 2018, 8:36. INDICATIONS : Post right thoracentesis. MEDICAL HISTORY : Hypertension. Non Hodgkins Lymphoma. SURGICAL HISTORY : Pericardial window. ENCOUNTER: Subsequent ACUITY: 1 day PAIN SCORE: 0/10 LOCATION: Bilateral chest FINDINGS: The cardiac silhouette is enlarged in transverse diameter. Following right thoracentesis no pneumotho rax is identified. There is significant reduction in the previously seen effusion. Gvliil-i-Ruoc is i n place via right internal jugular approach with its tip in the superior vena cava. There is left low er lobe atelectasis versus pneumonia. CONCLUSION: No evidence of pneumothorax following thoracentesis. Jadon Carroll MD on January 12, 2018 at 14:08 Board Certified Radiologist. This report was verified electronically.
--- NOTE | 2018-01-12 15:43 | EKG ---
Date Performed: 01/11/2018 Time Performed: 08:21:11 PTAGE: 47 years EKG: Sinus rhythm LOW QRS VOLTAGE IN EXTREMITY LEADS MODERATE T-WAVE ABNORMALITY, CONSIDER ANTEROLATERAL ISCHEMIA ABNO RMAL ECG PREVIOUS TRACING 01/02/18 Poor R-wave progression in the anterior precordium, but improved sinc e the prior tracing with persistent ST-T changes of the inferolateral leads. Cannot rule out ishcemia . DOCTOR: Ren Li Interpretating Date/Time 01/12/2018 15:42:00
--- NOTE | 2018-01-12 16:48 | EKG ---
Date Performed: 01/12/2018 Time Performed: 08:54:36 PTAGE: 47 years EKG: Sinus rhythm LOW QRS VOLTAGE IN EXTREMITY LEADS ST DEVIATION AND MODERATE T-WAVE ABNORMALITY, CONSIDER ANTEROLATE RAL ISCHEMIA Since previous tracing, no significant change noted ABNORMAL ECG PREVIOUS TRACING : 01/11/2018 08.21 DOCTOR: Ren Li Interpretating Date/Time 01/12/2018 16:45:10
[2018-01-13] VITALS (13 sets, daily range): BP systolic 87–115; BP diastolic 58–81; PULSE 84–92; RESP 20–32; TEMP 98–99.8; O2SAT 93–99
[2018-01-13] MEDS: CHLORHEXIDINE GLUCONATE 2 % 1 PACK (2 CLOTHS) TOP SCH (04:00)
[2018-01-13] MEDS: RESP: ALBUTEROL 2.5 MG/IPRATROPIUM 0.5 MG NEB (SCH) INH ×4 (04:09→21:22)
[2018-01-13] MEDS: MORPHINE SULFATE 2 MG/ML SYRINGE IV PUSH PRN ×2 (05:24→20:32)
[2018-01-13 05:53] LABS: AUTOMATED NEUTROPHIL # 5.8 TH/MM3 (1.8-7.7); BASOPHIL % 0.1 % (0.0-2.0); HEMATOCRIT 30.2 % (39.0-51.0); HEMOGLOBIN 9.8 GM/DL (13.0-17.0); LYMPH % 5.4 % (9.0-44.0); LYMPHOCYTE # 0.4 TH/MM3 (1.0-4.8); MEAN CELL VOLUME 81.4 FL (80.0-100.0); MEAN CORPUSCULAR HEMOGLOBIN 26.5 PG (27.0-34.0); MEAN CORPUSCULAR HGB CONC 32.6 % (32.0-36.0); MEAN PLATELET VOLUME 8.6 FL (7.0-11.0); MONO % 8.3 % (0.0-8.0); MONOCYTE # 0.6 TH/MM3 (0-0.9); NEUT % 86.2 % (16.0-70.0); PLATELET COUNT 246 TH/MM3 (150-450); RED BLOOD COUNT 3.71 MIL/MM3 (4.50-5.90); RED CELL DISTRIBUTION WIDTH 19.6 % (11.6-17.2); WHITE BLOOD COUNT 6.8 TH/MM3 (4.0-11.0)
--- NOTE | 2018-01-13 06:10 | RADRPT ---
EXAM DATE/TIME: 01/13/2018 02:34 [facility] COMPARISON: CHEST SINGLE AP, January 12, 2018, 13:39. INDICATIONS : Short of breath. MEDICAL HISTORY : Hypertension. Non Hodgkins Lymphoma. SURGICAL HISTORY : Pericardial window. ENCOUNTER: Subsequent ACUITY: 2 days PAIN SCORE: 0/10 LOCATION: Bilateral chest FINDINGS: Right chest port is stable. There is persistent bibasilar infiltrate and left effusion. Cardiac conto urs are grossly stable. CONCLUSION: No significant change Tacos Garcia MD on January 13, 2018 at 6:07 Board Certified Radiologist. This report was verified electronically.
[2018-01-13 06:19] LABS: ALBUMIN 2.3 GM/DL (3.4-5.0); AST (GOT) 37 U/L (15-37); BICARBONATE 16.4 MEQ/L (21.0-32.0); BLOOD UREA NITROGEN 12 MG/DL (7-18); CALCIUM 7.8 MG/DL (8.5-10.1); CHLORIDE 111 MEQ/L (98-107); CREATININE 1.56 MG/DL (0.60-1.30); GLOMERULAR FILTRATION RATE 58 ML/MIN (>89); GLUCOSE,RANDOM 105 MG/DL (74-106); MAGNESIUM 1.7 MG/DL (1.5-2.5); SODIUM (NA) 141 MEQ/L (136-145)
[2018-01-13 06:25] LABS: ALKALINE PHOSPHATASE 113 U/L (45-117); ALT (GPT) LESS THAN 6 U/L (12-78); TOTAL BILIRUBIN ADULT 0.5 MG/DL (0.2-1.0); TOTAL PROTEIN 5.8 GM/DL (6.4-8.2)
[2018-01-13] MEDS: METOPROLOL TARTRATE 25 MG TAB PO SCH ×2 (07:35→20:30)
[2018-01-13] MEDS: ASPIRIN 81 MG CHEW TAB CHEW SCH (07:35)
[2018-01-13] MEDS: DOCUSATE SODIUM 50 MG/SENNA 8.6 MG TAB PO SCH ×2 (07:35→20:30)
[2018-01-13] MEDS: PANTOPRAZOLE SOD 40 MG DELAYED RELEASE TAB PO SCH (07:35)
[2018-01-13] MEDS: CALCIUM CARBONATE 1.25 GM (CA 500 MG) TAB PO SCH (07:35)
[2018-01-13] MEDS: SODIUM CHLORIDE 0.9% FLUSH 10 ML FLUSH IV FLUSH SCH ×2 (07:36→20:36)
[2018-01-13] MEDS: ARTIFICIAL TEARS OPTH SOLN 15 ML BTL EACH EYE SCH ×3 (07:36→17:43)
[2018-01-13 08:04] LABS: INTERNATIONAL NORMALIZED RATIO 1.5 RATIO
--- NOTE | 2018-01-13 08:21 | HHI.CCPN ---
Subjective Remarks/Hospital Course This 47-year-old man with recently diagnosed non-Hodgkin's lymphoma, B-cell type , presents to the emergency department with worsening shortness of breath over the past 2 days. Particularly troublesome as his room air oxygen saturation of 80%. CAT scan of the chest shows hypovolemia and large bilateral pleural effusions. Aside from a fading parenchymal pneumonitis the lung canas are clear. There is a small amount of pericardial fluid is well. Cardiac echo is pending at this point but we know from history that he has a markedly depressed ventricular function. He is an Entresto has been held because of hypotension. On physical exam the gentleman appears markedly dehydrated but his B natriuretic peptide is also markedly hydrated. My impression is that we will just have to gingerly hydrate this gentleman and follow his pulmonary exam. There is no evidence of sepsis at this time. 01/12/18: Patient lying in bed slightly tachypneic. Chest x-ray shows at least moderate sized bilateral effusion. 2D echo yesterday showed probable atrial mass. Cardiac MRI ordered. Few nonsustained episodes of wide-complex tachycardia overnight. Troponin elevated, peaked at 3.6. Cardiology consulted. Start aspirin, will not tolerate beta blockers or MARLO inhibitors at this time 01/13: Subjectively much improved, respiratory duggan. Had thoracentesis and almost 1.5 L removed from the right side. Cardiac MRI pending. INR is 1.5. Will drain Left side today. Effusion appears malignant secondary to lymphoma, predominantly lymphocytes. On discussion with Dr. Connelly it appears patient has very aggressive nonresponding lymphoma Objective Vital Signs Date Time Temp Pulse Resp B/P (MAP) Pulse Ox O2 Delivery O2 Flow Rate FiO2 01/13/18 08:07 95 21 01/13/18 06:00 90 01/13/18 04:00 98.0 32 115/79 (91) 01/11/18 20:53 Nasal Cannula 3.00 Intake and Output 01/13/18 01/13/18 01/14/18 08:00 16:00 00:00 Intake Total 700 ml Output Total 600 ml Balance 100 ml Result Diagram: 01/13/18 0436 01/13/18 0436 Objective Remarks General: Slightly tachypneic, but improving Head: Sunken eyes, temporal muscle wasting Neck: Supple, airway widely patent Lungs: Clear bilaterally without wheezes or crackles. Decreased breath sounds predominantly at the left base. Heart: Normal S1-S2, sinus rhythm mid 80s, neck veins are flat Abdomen: No guarding no tenderness bowel sounds are present Extremities: Warm adequately perfused. Skin turgor poor Neuro: Alert, oriented 3, moves 4 extremities spontaneously. No focal deficits A/P Assessment and Plan Assessment: NSTEMI Nonsustained ventricular tachycardia Respiratory insufficiency Dehydration, oliguria Hypotension Left atrial mass on echo Large bilateral pleural effusions Small pericardial effusion Non-Hodgkin's lymphoma, nonresponding Plan: -Cardiology Dr. Taveras, will probably need ischemic workup -Keep potassium more than 4, magnesium more than 2. -Cardiac MRI to evaluate left atrial mass -Repeat cardiac echo, EF 55%, probable left atrial mass -Status post thoracentesis and 1.5 L of fluid removed from right side 01/12/18- malignant effusion secondary to lymphoma -Plan for left thoracentesis today -Hold anticoagulation for thoracentesis. s/p 2 units of FFP and 10 mg IV vitamin K 01/12 -Aspirin 81 mg daily. At this time patient will not tolerate MARLO inhibitors or beta-blockers -Gentle hydration with isotonic crystalloid. -Follow renal function and natruretic peptide closely -Pepcid for GI ulcer prophylaxis -Patient is fully anticoagulated, holding SCDs, as the skin will macerate until hydrated -Follow-up labs chest x-ray in a.m. Overall impression: Patient arrived in critical condition with respiratory insufficiency pleural effusion nonsustained ventricular tachycardia and with NSTEMI. Plan for left thoracentesis today. If stable may transfer to step down after thoracentesis today Level 3 Leona Balderrama MD Jan 13, 2018 08:21
--- NOTE | 2018-01-13 09:06 | PD.PROCEDR ---
Procedure Note Procedure Procedure: US guided Left Thoracentesis Indication: Large left pleural effusion, respiratory insufficiency A time-out was completed verifying correct patient, procedure, site, positioning , and special equipment if applicable. The patients left side was prepped and draped in a sterile manner after the appropriate infiltration level was confirmed and marked by ultrasound. 1% lidocaine was used anesthetize the surrounding skin. A 10-blade scalpel used to make the incision. The thoracentesis Angio cath was then introduced without difficulty and needle was removed. Catheter was connected to Vacutainer bottle and 1300 ml of cloudy light yellow fluid was removed. A post-procedure chest x-ray was ordered and the fluid will be sent for several studies. Estimated Blood Loss: <1 ml The patient tolerated the procedure well and there were no immediate complications. Leona Balderrama MD Jan 13, 2018 09:06
--- NOTE | 2018-01-13 10:26 | RADRPT ---
EXAM DATE/TIME: 01/13/2018 09:35 [facility] COMPARISON: CHEST SINGLE AP, January 13, 2018, 2:34. INDICATIONS : Post thoracentesis. MEDICAL HISTORY : Hypertension. Non Hodgkins Lymphoma. SURGICAL HISTORY : Pericardial window. ENCOUNTER: Subsequent ACUITY: 1 day PAIN SCORE: 0/10 LOCATION: Left chest FINDINGS: Status post left thoracentesis. No evidence of left-sided pneumothorax. Decreasing opacity at the l eft lower chest with visualization of the left hemidiaphragm. No left lung infiltrates seen. On the right side, there is increasing opacity in the right mid and lower lung laterally suggesting either partially consolidative infiltrate or pleural effusion. CONCLUSION: 1. No evidence of pneumothorax status post left thoracentesis. 2. Increasing hazy opacity in the right mid and lower lung. Bryon Evans MD on January 13, 2018 at 10:22 Board Certified Radiologist. This report was verified electronically.
[2018-01-13] MEDS ORDERED: POTASSIUM CHLORIDE 25 MEQ EFFERVESCENT TAB PO ONE (11:00)
[2018-01-13] MEDS ORDERED: MAGNESIUM SULFATE 1 GM PREMIX 100 ML IV ONE (11:00)
[2018-01-13 11:01] LABS: TOTAL PROTEIN,PLEURAL FLUID 1.8 GM/DL
[2018-01-13 11:16] LABS: PLEURAL FLUID LYMPHS 92 %; PLEURAL FLUID MONOS 1 %; PLEURAL FLUID POLYS (SEGS) 7 %; PLEURAL FLUID RBC 7477 /MM3 (0-0); PLEURAL FLUID WBC 11850 /MM3 (0-10)
[2018-01-13] MEDS ORDERED: GADODIAMIDE PF 287 MG/ML 20 ML VIAL (for RAD MRI) IVCONTRAST ONE (11:37)
[2018-01-13] MEDS: SODIUM CHLOR 0.9% 1000 ML INJ 1,000 ML IV SCH (11:56)
--- NOTE | 2018-01-13 14:06 | PD.ONC.PN ---
Subjective Subjective Remarks Afebrile overnight. patient states he does not feel dyspneic today. he feels much better today. denies pain. Objective Data Date Time Temp Pulse Resp B/P (MAP) Pulse Ox O2 Delivery O2 Flow Rate FiO2 01/13/18 12:00 98.0 90 29 87/58 (68) 95 01/13/18 12:00 90 01/13/18 08:07 95 21 01/13/18 08:00 90 01/13/18 08:00 99.8 90 27 111/79 (90) 93 01/13/18 06:00 90 01/13/18 04:00 98.0 90 32 115/79 (91) 93 01/13/18 04:00 90 01/13/18 02:00 89 01/13/18 00:00 89 01/13/18 00:00 98.0 89 32 106/81 (89) 93 01/12/18 22:00 95 01/12/18 20:56 93 21 01/12/18 20:00 92 01/12/18 20:00 98.1 92 40 114/79 (91) 93 01/12/18 18:00 90 01/12/18 16:00 92 01/12/18 16:00 98.0 92 20 122/88 (99) 96 01/12/18 14:00 93 01/13/18 01/13/18 01/13/18 07:00 15:00 23:00 Intake Total 800 ml Output Total 600 ml Balance 200 ml Result Diagram: 01/13/18 0436 01/13/18 0436 Laboratory Results Laboratory Tests Test 01/13/18 04:36 01/13/18 07:45 01/13/18 08:50 White Blood Count 6.8 TH/MM3 Red Blood Count 3.71 MIL/MM3 Hemoglobin 9.8 GM/DL Hematocrit 30.2 % Mean Corpuscular Volume 81.4 FL Mean Corpuscular Hemoglobin 26.5 PG Mean Corpuscular Hemoglobin Concent 32.6 % Red Cell Distribution Width 19.6 % Platelet Count 246 TH/MM3 Mean Platelet Volume 8.6 FL Neutrophils (%) (Auto) 86.2 % Lymphocytes (%) (Auto) 5.4 % Monocytes (%) (Auto) 8.3 % Eosinophils (%) (Auto) 0.0 % Basophils (%) (Auto) 0.1 % Neutrophils # (Auto) 5.8 TH/MM3 Lymphocytes # (Auto) 0.4 TH/MM3 Monocytes # (Auto) 0.6 TH/MM3 Eosinophils # (Auto) 0.0 TH/MM3 Basophils # (Auto) 0.0 TH/MM3 CBC Comment DIFF FINAL Differential Comment Blood Urea Nitrogen 12 MG/DL Creatinine 1.56 MG/DL Random Glucose 105 MG/DL Total Protein 5.8 GM/DL Albumin 2.3 GM/DL Calcium Level 7.8 MG/DL Magnesium Level 1.7 MG/DL Alkaline Phosphatase 113 U/L Aspartate Amino Transf (AST/SGOT) 37 U/L Alanine Aminotransferase (ALT/SGPT) LESS THAN 6 U/L Total Bilirubin 0.5 MG/DL Sodium Level 141 MEQ/L Potassium Level 3.5 MEQ/L Chloride Level 111 MEQ/L Carbon Dioxide Level 16.4 MEQ/L Anion Gap 14 MEQ/L Estimat Glomerular Filtration Rate 58 ML/MIN B-Type Natriuretic Peptide 1977 PG/ML Prothrombin Time 15.0 SEC Prothromb Time International Ratio 1.5 RATIO Pleural Fluid WBC 89942 /MM3 Pleural Fluid RBC 7477 /MM3 Pleural Fluid Neutrophils 7 % Pleural Fluid Lymphocytes 92 % Pleural Fluid Monocytes 1 % Pleural Fluid Total Protein 1.8 GM/DL Pleural Fluid LDH 506 U/L Pleural Fluid Glucose 99 MG/DL Culture Results Microbiology Date/Time Source Procedure Growth Status 01/13/18 08:50 Fluid Pleural Fluid Fungal Smear Pending Received 01/13/18 08:50 Fluid Pleural Fluid Fungal Culture Pending Received 01/13/18 08:50 Fluid Pleural Fluid Acid Fast Stain Pending Received 01/13/18 08:50 Fluid Pleural Fluid Mycobacterial Culture Pending Received 01/13/18 08:50 Fluid Pleural Fluid Gram Stain Pending Received 01/13/18 08:50 Fluid Pleural Fluid Body Fluid Culture Pending Received 01/12/18 11:45 Fluid Pleural Fluid Fungal Smear - Final NO FUNGAL ELEMENTS SEEN. Resulted 01/12/18 11:45 Fluid Pleural Fluid Fungal Culture Pending Resulted 01/12/18 11:45 Fluid Pleural Fluid Acid Fast Stain Pending Received 01/12/18 11:45 Fluid Pleural Fluid Mycobacterial Culture Pending Received 01/12/18 11:45 Fluid Pleural Fluid Gram Stain - Final Resulted 01/12/18 11:45 Fluid Pleural Fluid Body Fluid Culture - Preliminary NO GROWTH IN 24 HOURS. Resulted Imaging Studies Last 24 hours Impressions Chest X-Ray 01/13/18 0600 Signed Impressions: Service Date/Time: Saturday, January 13, 2018 02:34 - CONCLUSION: No significant change Tacos Garcia MD Chest X-Ray 01/13/18 0000 Signed Impressions: Service Date/Time: Saturday, January 13, 2018 09:35 - CONCLUSION: 1. No evidence of pneumothorax status post left thoracentesis. 2. Increasing hazy opacity in the right mid and lower lung. Bryon Evans MD Administered Medications Medications (Trade) Dose Ordered Sig/Shyla Route PRN Reason Start Time Stop Time Status Last Admin Dose Admin Sodium Chloride 1,000 ml @ 30 mls/hr Q24H IV 01/11/18 13:46 01/13/18 11:56 Sodium Chloride (NS Flush) 2 ml BID IV FLUSH 01/11/18 21:00 01/13/18 07:36 Morphine Sulfate (Morphine Inj) 2 mg Q2H PRN IV PUSH PAIN SCALE 6 TO 10 01/11/18 14:15 01/13/18 05:24 Albuterol/ Ipratropium (Duoneb Neb) 1 ampule Q6HR NEB INH 01/11/18 16:00 01/13/18 08:07 Miscellaneous Information 1 Q361D XX 01/11/18 14:00 01/11/18 14:00 Chlorhexidine Gluconate (Chlorhexidine 2% Cloth) 3 pack Taper DAILY@04 TOP 01/12/18 04:00 01/08/19 03:59 01/13/18 04:00 Senna/Docusate Sodium (Porsha-Colace) 1 tab BID PO 01/11/18 21:00 01/12/18 21:55 Calcium Carbonate (Oscal) 1,500 mg DAILY PO 01/12/18 09:00 01/13/18 07:35 Pantoprazole Sodium (Protonix) 40 mg DAILY PO 01/12/18 09:00 01/13/18 07:35 Aspirin (Aspirin Chew) 81 mg DAILY CHEW 01/12/18 11:00 01/13/18 07:35 Metoprolol Tartrate (Lopressor) 12.5 mg Q12HR PO 01/12/18 12:45 01/13/18 07:35 Objective Remarks GENERAL: Middle aged male, sitting up in bed watching TV in nad. SKIN: Warm and dry. HEAD: Normocephalic. EYES: no injection or drainage. NECK: Supple, trachea midline. CARDIOVASCULAR: +S1/S2 RESPIRATORY: Breath sounds equal bilaterally. No accessory muscle use. GASTROINTESTINAL: Abdomen soft, non-tender, nondistended. EXTREMITIES: No cyanosis NEUROLOGICAL: awake and alert. normal speech. Assessment/Plan Problem List: (1) Diffuse large B cell lymphoma ICD Codes: C83.30 - Diffuse large B-cell lymphoma, unspecified site Plan: --high risk lymphoma. --s/p 5 cycles of Rituxan and EPOCH with partial response. --Chemotherapy was stopped when he developed sepsis and bacterial endocarditis. He also subsequently developed severe cardiomyopathy with an ejection fraction of around 25%. --developed progression of disease when he was off chemotherapy. PET scan showed increased adenopathy in the mediastinum extending along the paraspinous region down to the abdomen. ++also uptake in the gastroesophageal junction area down to the angel hepatis. ++scattered retroperitoneal adenopathy and a few pulmonary nodules. --s/p 1 cycle of Rituxan, bendamustine 12/15/2017. His right supraclavicular adenopathy seems smaller. CT of thorax still showed the mediastinal adenopathy. ?partial response. (2) Pleural effusion ICD Codes: J90 - Pleural effusion, not elsewhere classified Status: Resolved Plan: --likely malignant pleural effusion. --CT showed increased pleural effusions, right greater than left. --s/p thoracentesis on 01/13 (3) Pericardial effusion without cardiac tamponade ICD Codes: I31.3 - Pericardial effusion (noninflammatory) Plan: --Malignant pericardial effusion. --was admitted to the hospital 12/30/2017 with a large pericardial effusion and possible cardiac tamponade. --had a subxiphoid window procedure. Pericardial fluid cytology and pericardium were positive for lymphoma. (4) Cardiomyopathy ICD Codes: I42.9 - Cardiomyopathy, unspecified Plan: --repeat echocardiogram shows ejection fraction is back up to 55%. --developed after the bacterial endocarditis. (5) Pulmonary emboli ICD Codes: I26.99 - Other pulmonary embolism without acute cor pulmonale Status: Chronic Plan: --start heparin gtt while inpatient, coumadin outpatient. Assessment 47y/o male with lymphoma, admitted with dyspnea. h/o High grade B cell lymphoma. Malignant pericardial effusion. Hypertension. Pulmonary embolism. Renal failure. Bacterial endocarditis.Cardiomyopathy.Pleural effusion.Infected port.History of methicillin-resistant Staphylococcus aureus infection. History of Clostridium difficile colitis. Plan 1. monitor CBC 2. await cardiac catheterization on Thursday 3. continue supportive care 4. start heparin gtt Attending Statement The exam, history, and the medical decision-making described in the above note were completed with the assistance of the mid-level provider. I reviewed and agree with the findings presented. I attest that I had a [id number] encounter with the patient on the same day, and personally performed and documented my assessment and findings in the medical record. Feels better after the thoracentesis. Cytology pending. Had runs of V.tach. Discussed with cardiology, pt possible has ischemia and plan to do cath Thursday. Will start pt on heparin and restart coumadin when he is done with procedure. Reviewed CT with radiologist at tumor board, when compare to last PET scan, the adenopathy are stable, the adenopathy did not improved with rituxan and bendamustine, prognosis is guarded. Problem Qualifiers (1) Pulmonary emboli: Brenda Platt Jan 13, 2018 14:06 Ruslan Connelly MD Jan 13, 2018 14:50
--- NOTE | 2018-01-13 14:06 | RADRPT ---
EXAM DATE/TIME: 01/13/2018 10:23 INDICATIONS : Abnormal echo. Left atrial mass. CONTRAST: 20 cc Omniscan (gadodiamide) IV MEDICAL HISTORY : Lymphoma. Hypertension. SURGICAL HISTORY : Rt sided chest port and lymph node biopsy ENCOUNTER: Subsequent ACUITY: 3 day PAIN SCORE: 2/10 LOCATION: Right chest TECHNIQUE: Multiplanar, multisequence MRI of the heart with and without contrast. FINDINGS: As seen on CT, is a 5.3 x 4.6 x 7.8 cm mediastinal mass lesion situated posterior to the left atrium. There is some impingement on the atrium and there appears to be a small tongue of tissue measuring a pproximately 1.7 cm in diameter which protrudes into the atrial lumen. No restriction of blood flow, however. Bilateral pleural effusions, right greater than left. There appears to be diffuse hypokinesis, most p rominent in the inferior wall and apex CONCLUSION: 1. 5.3 x 4.6 x 7.8 cm mediastinal mass lesion to the right and posterior of the left atrium. Mass imp inges on the atrial lumen and actually appears to be a small tongue of tissue measuring 1.7 cm in misa meter which protrudes into the atrial lumen. 2. Hypokinesis most prominent in the inferior wall and apex 3. Bilateral pleural effusions, right greater than left. River Quintero MD on January 13, 2018 at 13:50 Board Certified Radiologist. This report was verified electronically.
--- NOTE | 2018-01-13 14:46 | PD.CARD.PN ---
Subjective Subjective Remarks No events overnight Thoracentesis bilateral, ~1.3 taken out bilaterally Objective Medications Current Medications Medications (Trade) Dose Ordered Sig/Shyla Route Start Time Stop Time Status Last Admin Sodium Chloride 1,000 ml @ 30 mls/hr Q24H IV 01/11/18 13:46 01/13/18 11:56 (NS Flush) 2 ml UNSCH PRN IV FLUSH 01/11/18 14:00 (NS Flush) 2 ml BID IV FLUSH 01/11/18 21:00 01/13/18 07:36 (Tylenol) 650 mg Q6H PRN PO 01/11/18 14:00 (Terry 5-325 Mg) 1 tab Q4H PRN PO 01/11/18 14:00 (Morphine Inj) 2 mg Q2H PRN IV PUSH 01/11/18 14:15 01/13/18 05:24 (Tears Naturale Opth Soln) 1 drop TID EACH EYE 01/11/18 18:00 (Zofran Inj) 4 mg Q6H PRN IV PUSH 01/11/18 14:00 (Duoneb Neb) 1 ampule Q6HR NEB INH 01/11/18 16:00 01/13/18 08:07 (Albuterol Neb) 2.5 mg Q2HR NEB PRN INH 01/11/18 14:00 Miscellaneous Information 1 Q361D XX 01/11/18 14:00 01/11/18 14:00 (Chlorhexidine 2% Cloth) 3 pack Taper DAILY@04 TOP 01/12/18 04:00 01/08/19 03:59 01/13/18 04:00 (Chlorhexidine 2% Cloth) 3 pack UNSCH PRN TOP 01/11/18 14:00 (Porsha-Colace) 1 tab BID PO 01/11/18 21:00 01/12/18 21:55 (Milk Of Magnesia Liq) 30 ml Q12H PRN PO 01/11/18 14:00 (Senokot) 17.2 mg Q12H PRN PO 01/11/18 14:00 (Dulcolax Supp) 10 mg DAILY PRN RECTAL 01/11/18 14:00 (Lactulose Liq) 30 ml DAILY PRN PO 01/11/18 14:00 (Oscal) 1,500 mg DAILY PO 01/12/18 09:00 01/13/18 07:35 (Protonix) 40 mg DAILY PO 01/12/18 09:00 01/13/18 07:35 (Aspirin Chew) 81 mg DAILY CHEW 01/12/18 11:00 01/13/18 07:35 (Lopressor) 12.5 mg Q12HR PO 01/12/18 12:45 01/13/18 07:35 Heparin Sodium/ Dextrose 250 ml @ 0 mls/hr TITRATE PRN IV 01/13/18 14:30 UNV Vital Signs / I&O Vital Signs Date Time Temp Pulse Resp B/P (MAP) Pulse Ox O2 Delivery O2 Flow Rate FiO2 01/13/18 12:00 98.0 90 29 87/58 (68) 95 01/13/18 12:00 90 01/13/18 08:07 95 21 01/13/18 08:00 90 01/13/18 08:00 99.8 90 27 111/79 (90) 93 01/13/18 06:00 90 01/13/18 04:00 98.0 90 32 115/79 (91) 93 01/13/18 04:00 90 01/13/18 02:00 89 01/13/18 00:00 89 01/13/18 00:00 98.0 89 32 106/81 (89) 93 01/12/18 22:00 95 01/12/18 20:56 93 21 01/12/18 20:00 92 01/12/18 20:00 98.1 92 40 114/79 (91) 93 01/12/18 18:00 90 01/12/18 16:00 92 01/12/18 16:00 98.0 92 20 122/88 (99) 96 I/O 01/12/18 01/12/18 01/12/18 01/13/18 01/13/18 01/13/18 07:00 15:00 23:00 07:00 15:00 23:00 Intake Total 1000 ml 707 ml 2501 ml 800 ml Output Total 801 ml 600 ml Balance 1000 ml 707 ml 1700 ml 200 ml Intake Oral 650 ml 700 ml IV Total 1000 ml 1051 ml 100 ml FFP 607 ml 800 ml Blood Product IV Normal Saline Flush 100 ml Output Urine Total 800 ml 300 ml Stool Total 1 ml 300 ml # Voids 4 # Bowel Movements 4 Physical Exam GENERAL: NAD, AAOx3 SKIN: Warm and dry. HEAD: Atraumatic. Normocephalic. EYES: Pupils equal and round. No scleral icterus. No injection or drainage. ENT: No nasal bleeding or discharge. Mucous membranes pink and moist. NECK: Trachea midline. No JVD. CARDIOVASCULAR: Regular rate and rhythm. RESPIRATORY: Decreased breath sounds GASTROINTESTINAL: Abdomen soft, non-tender, nondistended. Hepatic and splenic margins not palpable. MUSCULOSKELETAL: Extremities without clubbing, cyanosis, or edema. No obvious deformities. NEUROLOGICAL: Awake and alert. No obvious cranial nerve deficits. Motor grossly within normal limits. Five out of 5 muscle strength in the arms and legs. Normal speech. PSYCHIATRIC: Appropriate mood and affect; insight and judgment normal. Laboratory Laboratory Tests Test 01/13/18 04:36 01/13/18 07:45 01/13/18 08:50 White Blood Count 6.8 TH/MM3 Red Blood Count 3.71 MIL/MM3 Hemoglobin 9.8 GM/DL Hematocrit 30.2 % Mean Corpuscular Volume 81.4 FL Mean Corpuscular Hemoglobin 26.5 PG Mean Corpuscular Hemoglobin Concent 32.6 % Red Cell Distribution Width 19.6 % Platelet Count 246 TH/MM3 Mean Platelet Volume 8.6 FL Neutrophils (%) (Auto) 86.2 % Lymphocytes (%) (Auto) 5.4 % Monocytes (%) (Auto) 8.3 % Eosinophils (%) (Auto) 0.0 % Basophils (%) (Auto) 0.1 % Neutrophils # (Auto) 5.8 TH/MM3 Lymphocytes # (Auto) 0.4 TH/MM3 Monocytes # (Auto) 0.6 TH/MM3 Eosinophils # (Auto) 0.0 TH/MM3 Basophils # (Auto) 0.0 TH/MM3 CBC Comment DIFF FINAL Differential Comment Blood Urea Nitrogen 12 MG/DL Creatinine 1.56 MG/DL Random Glucose 105 MG/DL Total Protein 5.8 GM/DL Albumin 2.3 GM/DL Calcium Level 7.8 MG/DL Magnesium Level 1.7 MG/DL Alkaline Phosphatase 113 U/L Aspartate Amino Transf (AST/SGOT) 37 U/L Alanine Aminotransferase (ALT/SGPT) LESS THAN 6 U/L Total Bilirubin 0.5 MG/DL Sodium Level 141 MEQ/L Potassium Level 3.5 MEQ/L Chloride Level 111 MEQ/L Carbon Dioxide Level 16.4 MEQ/L Anion Gap 14 MEQ/L Estimat Glomerular Filtration Rate 58 ML/MIN B-Type Natriuretic Peptide 1977 PG/ML Prothrombin Time 15.0 SEC Prothromb Time International Ratio 1.5 RATIO Pleural Fluid WBC 26756 /MM3 Pleural Fluid RBC 7477 /MM3 Pleural Fluid Neutrophils 7 % Pleural Fluid Lymphocytes 92 % Pleural Fluid Monocytes 1 % Pleural Fluid Total Protein 1.8 GM/DL Pleural Fluid LDH 506 U/L Pleural Fluid Glucose 99 MG/DL Imaging Last 24 hours Impressions Chest X-Ray 01/13/18 0600 Signed Impressions: Service Date/Time: Saturday, January 13, 2018 02:34 - CONCLUSION: No significant change Tacos Garcia MD Chest X-Ray 01/13/18 0000 Signed Impressions: Service Date/Time: Saturday, January 13, 2018 09:35 - CONCLUSION: 1. No evidence of pneumothorax status post left thoracentesis. 2. Increasing hazy opacity in the right mid and lower lung. Bryon Evans MD Cardiac MRI 01/13/18 0000 Signed Impressions: Service Date/Time: Saturday, January 13, 2018 10:23 - CONCLUSION: 1. 5.3 x 4.6 x 7.8 cm mediastinal mass lesion to the right and posterior of the left atrium. Mass impinges on the atrial lumen and actually appears to be a small tongue of tissue measuring 1.7 cm in diameter which protrudes into the atrial lumen. 2. Hypokinesis most prominent in the inferior wall and apex 3. Bilateral pleural effusions, right greater than left. River Quintero MD Assessment and Plan Problem List: (1) Diffuse large B cell lymphoma ICD Codes: C83.30 - Diffuse large B-cell lymphoma, unspecified site (2) Cardiomyopathy ICD Codes: I42.9 - Cardiomyopathy, unspecified (3) Pleural effusion ICD Codes: J90 - Pleural effusion, not elsewhere classified Status: Resolved (4) Acute respiratory failure with hypoxia ICD Codes: J96.01 - Acute respiratory failure with hypoxia Status: Acute (5) Elevated troponin ICD Codes: R74.8 - Abnormal levels of other serum enzymes Assessment and Plan 1) Bilateral thoracentesis Malignant effusions 2) Aggressive lymphoma per Heme/Onc 3) NSTEMI/Wide complex tachycardia No further arrhythmias Plan for cardiac catheterization most likely Thursday Heparin drip BB therapy as tolerated ASA 4) Hx of PE 5) Left atrial mass Cardiac MRI showing a large mass impinging on the left atrium Can definitely cause arrhythmias, but more likely atrial arrhythmias Terry Taveras DO Jan 13, 2018 14:46
[2018-01-13 15:04] LABS: AMYLASE BODY FLUID 12 U/L; AMYLASE BODY FLUID TYPE PLEURAL
[2018-01-13 15:08] LABS: INTERNATIONAL NORMALIZED RATIO 1.5 RATIO; PROTHROMBIN TIME - PATIENT 14.7 SEC (9.8-11.6)
[2018-01-13] MEDS ORDERED: HEPARIN-D5W 25,000 U/250 ML 250 ML IV PRN (16:00)
[2018-01-14] VITALS (21 sets, daily range): BP systolic 68–116; BP diastolic 38–78; PULSE 84–107; RESP 18–30; TEMP 98.3–98.9; O2SAT 94–98
[2018-01-14] MEDS: RESP: ALBUTEROL 2.5 MG/IPRATROPIUM 0.5 MG NEB (SCH) INH ×4 (02:35→19:44)
[2018-01-14] MEDS: CHLORHEXIDINE GLUCONATE 2 % 1 PACK (2 CLOTHS) TOP SCH (04:00)
--- NOTE | 2018-01-14 06:35 | RADRPT ---
EXAM DATE/TIME: 01/14/2018 04:49 [facility] COMPARISON: CHEST SINGLE AP, January 13, 2018, 9:35. INDICATIONS : Shortness of breath, possible pulmonary disease. MEDICAL HISTORY : Hypertension. Non Hodgkins lymphoma SURGICAL HISTORY : thoracentesis ENCOUNTER: Subsequent ACUITY: 3 days PAIN SCORE: 0/10 LOCATION: Bilateral chest FINDINGS: Right chest port catheter is stable in good position. Hazy bilateral primarily lung zone pleuroparenc hymal opacity, slightly worse on the right than the left is again noted. Cardiac contour is grossly s table. CONCLUSION: No significant change Tacos Garcia MD on January 14, 2018 at 6:32 Board Certified Radiologist. This report was verified electronically.
[2018-01-14 06:59] LABS: INTERNATIONAL NORMALIZED RATIO 1.4 RATIO; PROTHROMBIN TIME - PATIENT 14.6 SEC (9.8-11.6)
[2018-01-14 07:08] LABS: AUTOMATED NEUTROPHIL # 4.5 TH/MM3 (1.8-7.7); BASOPHIL % 0.8 % (0.0-2.0); EOSINOPHIL % 0.2 % (0.0-4.0); HEMATOCRIT 27.8 % (39.0-51.0); HEMOGLOBIN 8.9 GM/DL (13.0-17.0); LYMPHOCYTE # 0.3 TH/MM3 (1.0-4.8); MEAN CELL VOLUME 82.6 FL (80.0-100.0); MEAN CORPUSCULAR HEMOGLOBIN 26.6 PG (27.0-34.0); MEAN CORPUSCULAR HGB CONC 32.2 % (32.0-36.0); MEAN PLATELET VOLUME 8.7 FL (7.0-11.0); MONO % 7.8 % (0.0-8.0); MONOCYTE # 0.4 TH/MM3 (0-0.9); NEUT % 86.2 % (16.0-70.0); PLATELET COUNT 233 TH/MM3 (150-450); RED BLOOD COUNT 3.36 MIL/MM3 (4.50-5.90); RED CELL DISTRIBUTION WIDTH 20.1 % (11.6-17.2); WHITE BLOOD COUNT 5.3 TH/MM3 (4.0-11.0)
[2018-01-14 07:19] LABS: AST (GOT) 23 U/L (15-37); BICARBONATE 18.7 MEQ/L (21.0-32.0); BLOOD UREA NITROGEN 11 MG/DL (7-18); CALCIUM 7.9 MG/DL (8.5-10.1); CHLORIDE 107 MEQ/L (98-107); GLOMERULAR FILTRATION RATE 60 ML/MIN (>89); GLUCOSE,RANDOM 101 MG/DL (74-106); MAGNESIUM 1.9 MG/DL (1.5-2.5); SODIUM (NA) 138 MEQ/L (136-145)
[2018-01-14 07:38] LABS: ALKALINE PHOSPHATASE 98 U/L (45-117); ALT (GPT) LESS THAN 6 U/L (12-78); FREE T4 1.23 NG/DL (0.76-1.46); PHOSPHORUS 1.9 MG/DL (2.5-4.9); TOTAL BILIRUBIN ADULT 0.3 MG/DL (0.2-1.0); TOTAL PROTEIN 5.3 GM/DL (6.4-8.2)
[2018-01-14] MEDS: ARTIFICIAL TEARS OPTH SOLN 15 ML BTL EACH EYE SCH ×3 (09:00→18:00)
[2018-01-14] MEDS: DOCUSATE SODIUM 50 MG/SENNA 8.6 MG TAB PO SCH ×2 (09:43→20:54)
[2018-01-14] MEDS: CALCIUM CARBONATE 1.25 GM (CA 500 MG) TAB PO SCH (09:44)
[2018-01-14] MEDS: ASPIRIN 81 MG CHEW TAB CHEW SCH (09:44)
[2018-01-14] MEDS: PANTOPRAZOLE SOD 40 MG DELAYED RELEASE TAB PO SCH (09:44)
[2018-01-14] MEDS: METOPROLOL TARTRATE 25 MG TAB PO SCH ×2 (09:44→20:55)
[2018-01-14] MEDS: SODIUM CHLORIDE 0.9% FLUSH 10 ML FLUSH IV FLUSH SCH ×2 (09:44→20:54)
--- NOTE | 2018-01-14 10:09 | PD.ONC.PN ---
Subjective Subjective Remarks Afebrile overnight. patient resting in bed in nad. feels dyspneic with exertion. otherwise no complaints. Objective Data Date Time Temp Pulse Resp B/P (MAP) Pulse Ox O2 Delivery O2 Flow Rate FiO2 01/14/18 09:44 98 21 01/14/18 06:00 92 01/14/18 05:00 90 01/14/18 04:00 92 01/14/18 04:00 90 01/14/18 03:00 92 01/14/18 02:00 86 01/14/18 01:00 86 01/14/18 00:19 84 18 116/76 (89) 97 01/14/18 00:19 87 01/14/18 00:00 84 01/13/18 23:00 84 01/13/18 22:00 90 01/13/18 21:32 20 01/13/18 21:22 96 01/13/18 21:00 92 01/13/18 21:00 91 20 103/77 (86) 99 01/13/18 20:00 98.6 90 30 103/78 (86) 96 01/13/18 20:00 90 01/13/18 16:00 98.6 88 26 96/73 (81) 96 01/13/18 16:00 88 01/13/18 12:00 98.0 90 29 87/58 (68) 95 01/13/18 12:00 90 01/14/18 01/14/18 01/14/18 07:00 15:00 23:00 Intake Total 480 ml Output Total 100 ml Balance 380 ml Result Diagram: 01/14/18 0515 01/14/18 0515 Laboratory Results Laboratory Tests Test 01/13/18 14:30 01/14/18 05:15 Prothrombin Time 14.7 SEC 14.6 SEC Prothromb Time International Ratio 1.5 RATIO 1.4 RATIO Activated Partial Thromboplast Time 32.2 SEC 49.3 SEC White Blood Count 5.3 TH/MM3 Red Blood Count 3.36 MIL/MM3 Hemoglobin 8.9 GM/DL Hematocrit 27.8 % Mean Corpuscular Volume 82.6 FL Mean Corpuscular Hemoglobin 26.6 PG Mean Corpuscular Hemoglobin Concent 32.2 % Red Cell Distribution Width 20.1 % Platelet Count 233 TH/MM3 Mean Platelet Volume 8.7 FL Neutrophils (%) (Auto) 86.2 % Lymphocytes (%) (Auto) 5.0 % Monocytes (%) (Auto) 7.8 % Eosinophils (%) (Auto) 0.2 % Basophils (%) (Auto) 0.8 % Neutrophils # (Auto) 4.5 TH/MM3 Lymphocytes # (Auto) 0.3 TH/MM3 Monocytes # (Auto) 0.4 TH/MM3 Eosinophils # (Auto) 0.0 TH/MM3 Basophils # (Auto) 0.0 TH/MM3 CBC Comment DIFF FINAL Differential Comment Blood Urea Nitrogen 11 MG/DL Creatinine 1.50 MG/DL Random Glucose 101 MG/DL Total Protein 5.3 GM/DL Albumin 2.0 GM/DL Calcium Level 7.9 MG/DL Phosphorus Level 1.9 MG/DL Magnesium Level 1.9 MG/DL Alkaline Phosphatase 98 U/L Aspartate Amino Transf (AST/SGOT) 23 U/L Alanine Aminotransferase (ALT/SGPT) LESS THAN 6 U/L Total Bilirubin 0.3 MG/DL Sodium Level 138 MEQ/L Potassium Level 3.8 MEQ/L Chloride Level 107 MEQ/L Carbon Dioxide Level 18.7 MEQ/L Anion Gap 12 MEQ/L Estimat Glomerular Filtration Rate 60 ML/MIN Free Thyroxine 1.23 NG/DL Thyroid Stimulating Hormone 3rd Gen 9.820 uIU/ML Culture Results Microbiology Date/Time Source Procedure Growth Status 01/13/18 08:50 Fluid Pleural Fluid Fungal Smear - Final NO FUNGAL ELEMENTS SEEN. Resulted 01/13/18 08:50 Fluid Pleural Fluid Fungal Culture Pending Resulted 01/13/18 08:50 Fluid Pleural Fluid Acid Fast Stain Pending Received 01/13/18 08:50 Fluid Pleural Fluid Mycobacterial Culture Pending Received 01/13/18 08:50 Fluid Pleural Fluid Gram Stain - Final Resulted 01/13/18 08:50 Fluid Pleural Fluid Body Fluid Culture Pending Resulted 01/12/18 11:45 Fluid Pleural Fluid Fungal Smear - Final NO FUNGAL ELEMENTS SEEN. Resulted 01/12/18 11:45 Fluid Pleural Fluid Fungal Culture Pending Resulted 01/12/18 11:45 Fluid Pleural Fluid Acid Fast Stain Pending Received 01/12/18 11:45 Fluid Pleural Fluid Mycobacterial Culture Pending Received 01/12/18 11:45 Fluid Pleural Fluid Gram Stain - Final Resulted 01/12/18 11:45 Fluid Pleural Fluid Body Fluid Culture - Preliminary NO GROWTH IN 48 HOURS. Resulted Imaging Studies Last 24 hours Impressions Chest X-Ray 01/14/18 0600 Signed Impressions: Service Date/Time: January 04:49 - CONCLUSION: No significant change Tacos Garcia MD Administered Medications Medications (Trade) Dose Ordered Sig/Shyla Route PRN Reason Start Time Stop Time Status Last Admin Dose Admin Sodium Chloride 1,000 ml @ 30 mls/hr Q24H IV 01/11/18 13:46 01/13/18 11:56 Sodium Chloride (NS Flush) 2 ml BID IV FLUSH 01/11/18 21:00 01/14/18 09:44 Morphine Sulfate (Morphine Inj) 2 mg Q2H PRN IV PUSH PAIN SCALE 6 TO 10 01/11/18 14:15 01/13/18 20:32 Artificial Tears (Tears Naturale Opth Soln) 1 drop TID EACH EYE 01/11/18 18:00 01/14/18 09:00 Albuterol/ Ipratropium (Duoneb Neb) 1 ampule Q6HR NEB INH 01/11/18 16:00 01/14/18 09:42 Miscellaneous Information 1 Q361D XX 01/11/18 14:00 01/11/18 14:00 Chlorhexidine Gluconate (Chlorhexidine 2% Cloth) 3 pack Taper DAILY@04 TOP 01/12/18 04:00 01/08/19 03:59 01/13/18 04:00 Senna/Docusate Sodium (Porsha-Colace) 1 tab BID PO 01/11/18 21:00 01/14/18 09:43 Calcium Carbonate (Oscal) 1,500 mg DAILY PO 01/12/18 09:00 01/14/18 09:44 Pantoprazole Sodium (Protonix) 40 mg DAILY PO 01/12/18 09:00 01/14/18 09:44 Aspirin (Aspirin Chew) 81 mg DAILY CHEW 01/12/18 11:00 01/14/18 09:44 Metoprolol Tartrate (Lopressor) 12.5 mg Q12HR PO 01/12/18 12:45 01/14/18 09:44 Heparin Sodium/ Dextrose 250 ml @ 11 mls/hr TITRATE PRN IV Coagulation Management 01/13/18 16:00 01/13/18 15:55 Objective Remarks GENERAL: Middle aged male, lying in bed watching TV in nad. SKIN: Warm and dry. HEAD: Normocephalic. EYES: no injection or drainage. NECK: Supple, trachea midline. CARDIOVASCULAR: +S1/S2 RESPIRATORY: Breath sounds equal bilaterally. No accessory muscle use. GASTROINTESTINAL: Abdomen soft, non-tender, nondistended. EXTREMITIES: No cyanosis NEUROLOGICAL: awake and alert. normal speech. moving extremities. Assessment/Plan Problem List: (1) Diffuse large B cell lymphoma ICD Codes: C83.30 - Diffuse large B-cell lymphoma, unspecified site Plan: --high risk lymphoma. --s/p 5 cycles of Rituxan and EPOCH with partial response. --Chemotherapy was stopped when he developed sepsis and bacterial endocarditis. He also subsequently developed severe cardiomyopathy with an ejection fraction of around 25%. --developed progression of disease when he was off chemotherapy. PET scan showed increased adenopathy in the mediastinum extending along the paraspinous region down to the abdomen. ++also uptake in the gastroesophageal junction area down to the angel hepatis. ++scattered retroperitoneal adenopathy and a few pulmonary nodules. --s/p 1 cycle of Rituxan, bendamustine 12/15/2017. His right supraclavicular adenopathy seems smaller. CT of thorax still showed the mediastinal adenopathy. ?partial response. (2) Pleural effusion ICD Codes: J90 - Pleural effusion, not elsewhere classified Status: Resolved Plan: --++malignant pleural effusion confirmed by pathology --CT showed increased pleural effusions, right greater than left. --s/p thoracentesis on 01/13 (3) Pericardial effusion without cardiac tamponade ICD Codes: I31.3 - Pericardial effusion (noninflammatory) Plan: --Malignant pericardial effusion. --was admitted to the hospital 12/30/2017 with a large pericardial effusion and possible cardiac tamponade. --had a subxiphoid window procedure. Pericardial fluid cytology and pericardium were positive for lymphoma. (4) Cardiomyopathy ICD Codes: I42.9 - Cardiomyopathy, unspecified Plan: --repeat echocardiogram shows ejection fraction is back up to 55%. --developed after the bacterial endocarditis. (5) Pulmonary emboli ICD Codes: I26.99 - Other pulmonary embolism without acute cor pulmonale Status: Chronic Plan: --start heparin gtt while inpatient, coumadin outpatient. Assessment 47y/o male with lymphoma, admitted with dyspnea. h/o High grade B cell lymphoma. Malignant pericardial effusion. Hypertension. Pulmonary embolism. Renal failure. Bacterial endocarditis.Cardiomyopathy.Pleural effusion.Infected port.History of methicillin-resistant Staphylococcus aureus infection. History of Clostridium difficile colitis. Plan 1. await cardiac cath Thursday 2. continue heparin gtt 3. monitor CBC Attending Statement The exam, history, and the medical decision-making described in the above note were completed with the assistance of the mid-level provider. I reviewed and agree with the findings presented. I attest that I had a [id number] encounter with the patient on the same day, and personally performed and documented my assessment and findings in the medical record. SOB improved after the thoracentesis. Cytology +lymphoma. The Right supracalv node is bigger. The lymphoma is refractory to treatment. Pt does not want to go to tertiary center for transplant evaluation or try CART-T. Prognosis is guarded. He is going to have cardiac cath tomorrow. Consider treating him with chemotherapy next week if he is stable. Problem Qualifiers (1) Pulmonary emboli: Brenda Platt Jan 14, 2018 10:08 Ruslan Connelly MD Jan 14, 2018 13:25
--- NOTE | 2018-01-14 12:51 | PD.CARD.PN ---
Subjective Subjective Remarks No events overnight Thoracentesis bilateral, ~1.3 taken out bilaterally Objective Medications Current Medications Medications (Trade) Dose Ordered Sig/Shyla Route Start Time Stop Time Status Last Admin Sodium Chloride 1,000 ml @ 30 mls/hr Q24H IV 01/11/18 13:46 01/13/18 11:56 (NS Flush) 2 ml UNSCH PRN IV FLUSH 01/11/18 14:00 (NS Flush) 2 ml BID IV FLUSH 01/11/18 21:00 01/14/18 09:44 (Tylenol) 650 mg Q6H PRN PO 01/11/18 14:00 ([place] 5-325 Mg) 1 tab Q4H PRN PO 01/11/18 14:00 (Morphine Inj) 2 mg Q2H PRN IV PUSH 01/11/18 14:15 01/13/18 20:32 (Tears Naturale Opth Soln) 1 drop TID EACH EYE 01/11/18 18:00 01/14/18 09:00 (Zofran Inj) 4 mg Q6H PRN IV PUSH 01/11/18 14:00 (Duoneb Neb) 1 ampule Q6HR NEB INH 01/11/18 16:00 01/14/18 09:42 (Albuterol Neb) 2.5 mg Q2HR NEB PRN INH 01/11/18 14:00 Miscellaneous Information 1 Q361D XX 01/11/18 14:00 01/11/18 14:00 (Chlorhexidine 2% Cloth) 3 pack Taper DAILY@04 TOP 01/12/18 04:00 01/08/19 03:59 01/13/18 04:00 (Chlorhexidine 2% Cloth) 3 pack UNSCH PRN TOP 01/11/18 14:00 (Porsha-Colace) 1 tab BID PO 01/11/18 21:00 01/14/18 09:43 (Milk Of Magnesia Liq) 30 ml Q12H PRN PO 01/11/18 14:00 (Senokot) 17.2 mg Q12H PRN PO 01/11/18 14:00 (Dulcolax Supp) 10 mg DAILY PRN RECTAL 01/11/18 14:00 (Lactulose Liq) 30 ml DAILY PRN PO 01/11/18 14:00 (Oscal) 1,500 mg DAILY PO 01/12/18 09:00 01/14/18 09:44 (Protonix) 40 mg DAILY PO 01/12/18 09:00 01/14/18 09:44 (Aspirin Chew) 81 mg DAILY CHEW 01/12/18 11:00 01/14/18 09:44 (Lopressor) 12.5 mg Q12HR PO 01/12/18 12:45 01/14/18 09:44 Heparin Sodium/ Dextrose 250 ml @ 11 mls/hr TITRATE PRN IV 01/13/18 16:00 01/13/18 15:55 Vital Signs / I&O Vital Signs Date Time Temp Pulse Resp B/P (MAP) Pulse Ox O2 Delivery O2 Flow Rate FiO2 01/14/18 09:44 98 21 01/14/18 06:00 92 01/14/18 05:00 90 01/14/18 04:00 92 01/14/18 04:00 90 01/14/18 03:00 92 01/14/18 02:00 86 01/14/18 01:00 86 01/14/18 00:19 84 18 116/76 (89) 97 01/14/18 00:19 87 01/14/18 00:00 84 01/13/18 23:00 84 01/13/18 22:00 90 01/13/18 21:32 20 01/13/18 21:22 96 01/13/18 21:00 92 01/13/18 21:00 91 20 103/77 (86) 99 01/13/18 20:00 98.6 90 30 103/78 (86) 96 01/13/18 20:00 90 01/13/18 16:00 98.6 88 26 96/73 (81) 96 01/13/18 16:00 88 I/O 01/13/18 01/13/18 01/13/18 01/14/18 01/14/18 01/14/18 07:00 15:00 23:00 07:00 15:00 23:00 Intake Total 800 ml 480 ml 480 ml Output Total 600 ml 150 ml 100 ml Balance 200 ml 330 ml 380 ml Intake Oral 700 ml 480 ml 480 ml IV Total 100 ml Output Urine Total 300 ml 150 ml 100 ml Stool Total 300 ml # Voids 4 # Bowel Movements 4 0 Physical Exam GENERAL: NAD, AAOx3 SKIN: Warm and dry. HEAD: Atraumatic. Normocephalic. EYES: Pupils equal and round. No scleral icterus. No injection or drainage. ENT: No nasal bleeding or discharge. Mucous membranes pink and moist. NECK: Trachea midline. No JVD. CARDIOVASCULAR: Regular rate and rhythm. RESPIRATORY: Decreased breath sounds GASTROINTESTINAL: Abdomen soft, non-tender, nondistended. Hepatic and splenic margins not palpable. MUSCULOSKELETAL: Extremities without clubbing, cyanosis, or edema. No obvious deformities. NEUROLOGICAL: Awake and alert. No obvious cranial nerve deficits. Motor grossly within normal limits. Five out of 5 muscle strength in the arms and legs. Normal speech. PSYCHIATRIC: Appropriate mood and affect; insight and judgment normal. Laboratory Laboratory Tests Test 01/13/18 14:30 01/14/18 05:15 01/14/18 12:21 Prothrombin Time 14.7 SEC 14.6 SEC Prothromb Time International Ratio 1.5 RATIO 1.4 RATIO Activated Partial Thromboplast Time 32.2 SEC 49.3 SEC 49.2 SEC White Blood Count 5.3 TH/MM3 Red Blood Count 3.36 MIL/MM3 Hemoglobin 8.9 GM/DL Hematocrit 27.8 % Mean Corpuscular Volume 82.6 FL Mean Corpuscular Hemoglobin 26.6 PG Mean Corpuscular Hemoglobin Concent 32.2 % Red Cell Distribution Width 20.1 % Platelet Count 233 TH/MM3 Mean Platelet Volume 8.7 FL Neutrophils (%) (Auto) 86.2 % Lymphocytes (%) (Auto) 5.0 % Monocytes (%) (Auto) 7.8 % Eosinophils (%) (Auto) 0.2 % Basophils (%) (Auto) 0.8 % Neutrophils # (Auto) 4.5 TH/MM3 Lymphocytes # (Auto) 0.3 TH/MM3 Monocytes # (Auto) 0.4 TH/MM3 Eosinophils # (Auto) 0.0 TH/MM3 Basophils # (Auto) 0.0 TH/MM3 CBC Comment DIFF FINAL Differential Comment Blood Urea Nitrogen 11 MG/DL Creatinine 1.50 MG/DL Random Glucose 101 MG/DL Total Protein 5.3 GM/DL Albumin 2.0 GM/DL Calcium Level 7.9 MG/DL Phosphorus Level 1.9 MG/DL Magnesium Level 1.9 MG/DL Alkaline Phosphatase 98 U/L Aspartate Amino Transf (AST/SGOT) 23 U/L Alanine Aminotransferase (ALT/SGPT) LESS THAN 6 U/L Total Bilirubin 0.3 MG/DL Sodium Level 138 MEQ/L Potassium Level 3.8 MEQ/L Chloride Level 107 MEQ/L Carbon Dioxide Level 18.7 MEQ/L Anion Gap 12 MEQ/L Estimat Glomerular Filtration Rate 60 ML/MIN Free Thyroxine 1.23 NG/DL Thyroid Stimulating Hormone 3rd Gen 9.820 uIU/ML Imaging Last 24 hours Impressions Chest X-Ray 01/14/18 0600 Signed Impressions: Service Date/Time: January 04:49 - CONCLUSION: No significant change Tacos Garcia MD Assessment and Plan Problem List: (1) Diffuse large B cell lymphoma ICD Codes: C83.30 - Diffuse large B-cell lymphoma, unspecified site (2) Cardiomyopathy ICD Codes: I42.9 - Cardiomyopathy, unspecified (3) Pleural effusion ICD Codes: J90 - Pleural effusion, not elsewhere classified Status: Resolved (4) Acute respiratory failure with hypoxia ICD Codes: J96.01 - Acute respiratory failure with hypoxia Status: Acute (5) Elevated troponin ICD Codes: R74.8 - Abnormal levels of other serum enzymes Assessment and Plan 1) Bilateral thoracentesis Malignant effusions 2) Aggressive lymphoma per Heme/Onc 3) NSTEMI/Wide complex tachycardia No further arrhythmias Plan for cardiac catheterization tomorrow Heparin drip BB therapy as tolerated ASA 4) Hx of PE 5) Left atrial mass Cardiac MRI showing a large mass impinging on the left atrium Can definitely cause arrhythmias, but more likely atrial arrhythmias Terry Taveras DO Jan 14, 2018 12:51
--- NOTE | 2018-01-14 13:05 | HHI.PR ---
Subjective Remarks This 47-year-old man with recently diagnosed non-Hodgkin's lymphoma, B-cell type , presents to the emergency department with worsening shortness of breath over the past 2 days. Particularly troublesome as his room air oxygen saturation of 80%. CAT scan of the chest shows hypovolemia and large bilateral pleural effusions. Aside from a fading parenchymal pneumonitis the lung canas are clear. There is a small amount of pericardial fluid is well. Cardiac echo is pending at this point but we know from history that he has a markedly depressed ventricular function. He is an Entresto has been held because of hypotension. On physical exam the gentleman appears markedly dehydrated but his B natriuretic peptide is also markedly hydrated. My impression is that we will just have to gingerly hydrate this gentleman and follow his pulmonary exam. There is no evidence of sepsis at this time. 01/12/18: Patient lying in bed slightly tachypneic. Chest x-ray shows at least moderate sized bilateral effusion. 2D echo yesterday showed probable atrial mass. Cardiac MRI ordered. Few nonsustained episodes of wide-complex tachycardia overnight. Troponin elevated, peaked at 3.6. Cardiology consulted. Start aspirin, will not tolerate beta blockers or MARLO inhibitors at this time 01/13: Subjectively much improved, respiratory duggan. Had thoracentesis and almost 1.5 L removed from the right side. Cardiac MRI pending. INR is 1.5. Will drain Left side today. Effusion appears malignant secondary to lymphoma, predominantly lymphocytes. On discussion with Dr. Connelly it appears patient has very aggressive nonresponding lymphoma 4-5 FOR CARDIAC CATH TOMORROW NO SOB NO CHEST PAIN MOVING ALL EXTREMITIES LYMPHOMA VERY AGGRESSIVE Objective Vitals Vital Signs Date Time Temp Pulse Resp B/P (MAP) Pulse Ox O2 Delivery O2 Flow Rate FiO2 01/14/18 09:44 98 21 01/14/18 06:00 92 01/14/18 05:00 90 01/14/18 04:00 92 01/14/18 04:00 90 01/14/18 03:00 92 01/14/18 02:00 86 01/14/18 01:00 86 01/14/18 00:19 84 18 116/76 (89) 97 01/14/18 00:19 87 01/14/18 00:00 84 01/13/18 23:00 84 01/13/18 22:00 90 01/13/18 21:32 20 01/13/18 21:22 96 01/13/18 21:00 92 01/13/18 21:00 91 20 103/77 (86) 99 01/13/18 20:00 98.6 90 30 103/78 (86) 96 01/13/18 20:00 90 01/13/18 16:00 98.6 88 26 96/73 (81) 96 01/13/18 16:00 88 I/O 01/13/18 01/13/18 01/13/18 01/14/18 01/14/18 01/14/18 07:00 15:00 23:00 07:00 15:00 23:00 Intake Total 800 ml 480 ml 480 ml Output Total 600 ml 150 ml 100 ml Balance 200 ml 330 ml 380 ml Intake Oral 700 ml 480 ml 480 ml IV Total 100 ml Output Urine Total 300 ml 150 ml 100 ml Stool Total 300 ml # Voids 4 # Bowel Movements 4 0 Result Diagram: 01/14/18 0515 01/14/18 0515 Other Results Laboratory Tests Test 01/11/18 15:22 01/11/18 15:35 01/11/18 19:40 01/12/18 01:36 Prothrombin Time 29.9 SEC Prothromb Time International Ratio 3.0 RATIO Activated Partial Thromboplast Time 32.7 SEC Lactic Acid Level 3.2 mmol/L Lactate Dehydrogenase 835 U/L Albumin 2.6 GM/DL Nasal Screen MRSA (PCR) MRSA NOT DETECTED Troponin I 3.26 NG/ML 3.58 NG/ML Test 01/12/18 03:49 01/12/18 11:45 01/13/18 04:36 01/13/18 07:45 White Blood Count 7.8 TH/MM3 6.8 TH/MM3 Red Blood Count 4.09 MIL/MM3 3.71 MIL/MM3 Hemoglobin 10.7 GM/DL 9.8 GM/DL Hematocrit 33.3 % 30.2 % Mean Corpuscular Volume 81.4 FL 81.4 FL Mean Corpuscular Hemoglobin 26.1 PG 26.5 PG Mean Corpuscular Hemoglobin Concent 32.0 % 32.6 % Red Cell Distribution Width 19.6 % 19.6 % Platelet Count 275 TH/MM3 246 TH/MM3 Mean Platelet Volume 8.1 FL 8.6 FL Neutrophils (%) (Auto) 89.7 % 86.2 % Lymphocytes (%) (Auto) 3.0 % 5.4 % Monocytes (%) (Auto) 7.0 % 8.3 % Eosinophils (%) (Auto) 0.1 % 0.0 % Basophils (%) (Auto) 0.2 % 0.1 % Neutrophils # (Auto) 7.0 TH/MM3 5.8 TH/MM3 Lymphocytes # (Auto) 0.2 TH/MM3 0.4 TH/MM3 Monocytes # (Auto) 0.5 TH/MM3 0.6 TH/MM3 Eosinophils # (Auto) 0.0 TH/MM3 0.0 TH/MM3 Basophils # (Auto) 0.0 TH/MM3 0.0 TH/MM3 CBC Comment DIFF FINAL DIFF FINAL Differential Comment Prothrombin Time 35.1 SEC 15.0 SEC Prothromb Time International Ratio 3.5 RATIO 1.5 RATIO Blood Urea Nitrogen 14 MG/DL 12 MG/DL Creatinine 1.61 MG/DL 1.56 MG/DL Random Glucose 77 MG/DL 105 MG/DL Total Protein 5.7 GM/DL 5.8 GM/DL Albumin 2.4 GM/DL 2.3 GM/DL Calcium Level 7.9 MG/DL 7.8 MG/DL Phosphorus Level 3.4 MG/DL Magnesium Level 1.4 MG/DL 1.7 MG/DL Alkaline Phosphatase 90 U/L 113 U/L Aspartate Amino Transf (AST/SGOT) 54 U/L 37 U/L Alanine Aminotransferase (ALT/SGPT) LESS THAN 6 U/L LESS THAN 6 U/L Total Bilirubin 0.4 MG/DL 0.5 MG/DL Sodium Level 144 MEQ/L 141 MEQ/L Potassium Level 3.8 MEQ/L 3.5 MEQ/L Chloride Level 113 MEQ/L 111 MEQ/L Carbon Dioxide Level 14.3 MEQ/L 16.4 MEQ/L Anion Gap 17 MEQ/L 14 MEQ/L Estimat Glomerular Filtration Rate 56 ML/MIN 58 ML/MIN Lactic Acid Level 2.3 mmol/L Body Fluid Amylase Source PLEURAL Body Fluid Amylase 12 U/L Pleural Fluid pH 8.0 Pleural Fluid WBC 6900 /MM3 Pleural Fluid RBC 4596 /MM3 Pleural Fluid Neutrophils 4 % Pleural Fluid Lymphocytes 92 % Pleural Fluid Histiocytes 4 % Pleural Fluid Total Protein 2.3 GM/DL Pleural Fluid LDH 501 U/L Pleural Fluid Glucose 61 MG/DL B-Type Natriuretic Peptide 1977 PG/ML Test 01/13/18 08:50 01/13/18 14:30 01/14/18 05:15 01/14/18 12:21 Pleural Fluid WBC 45386 /MM3 Pleural Fluid RBC 7477 /MM3 Pleural Fluid Neutrophils 7 % Pleural Fluid Lymphocytes 92 % Pleural Fluid Monocytes 1 % Pleural Fluid Total Protein 1.8 GM/DL Pleural Fluid LDH 506 U/L Pleural Fluid Glucose 99 MG/DL Prothrombin Time 14.7 SEC 14.6 SEC Prothromb Time International Ratio 1.5 RATIO 1.4 RATIO Activated Partial Thromboplast Time 32.2 SEC 49.3 SEC 49.2 SEC White Blood Count 5.3 TH/MM3 Red Blood Count 3.36 MIL/MM3 Hemoglobin 8.9 GM/DL Hematocrit 27.8 % Mean Corpuscular Volume 82.6 FL Mean Corpuscular Hemoglobin 26.6 PG Mean Corpuscular Hemoglobin Concent 32.2 % Red Cell Distribution Width 20.1 % Platelet Count 233 TH/MM3 Mean Platelet Volume 8.7 FL Neutrophils (%) (Auto) 86.2 % Lymphocytes (%) (Auto) 5.0 % Monocytes (%) (Auto) 7.8 % Eosinophils (%) (Auto) 0.2 % Basophils (%) (Auto) 0.8 % Neutrophils # (Auto) 4.5 TH/MM3 Lymphocytes # (Auto) 0.3 TH/MM3 Monocytes # (Auto) 0.4 TH/MM3 Eosinophils # (Auto) 0.0 TH/MM3 Basophils # (Auto) 0.0 TH/MM3 CBC Comment DIFF FINAL Differential Comment Blood Urea Nitrogen 11 MG/DL Creatinine 1.50 MG/DL Random Glucose 101 MG/DL Total Protein 5.3 GM/DL Albumin 2.0 GM/DL Calcium Level 7.9 MG/DL Phosphorus Level 1.9 MG/DL Magnesium Level 1.9 MG/DL Alkaline Phosphatase 98 U/L Aspartate Amino Transf (AST/SGOT) 23 U/L Alanine Aminotransferase (ALT/SGPT) LESS THAN 6 U/L Total Bilirubin 0.3 MG/DL Sodium Level 138 MEQ/L Potassium Level 3.8 MEQ/L Chloride Level 107 MEQ/L Carbon Dioxide Level 18.7 MEQ/L Anion Gap 12 MEQ/L Estimat Glomerular Filtration Rate 60 ML/MIN Free Thyroxine 1.23 NG/DL Thyroid Stimulating Hormone 3rd Gen 9.820 uIU/ML Imaging Last Impressions Chest X-Ray 01/14/18 0600 Signed Impressions: Service Date/Time: January 04:49 - CONCLUSION: No significant change Tacos Garcia MD Cardiac MRI 01/13/18 0000 Signed Impressions: Service Date/Time: Saturday, January 13, 2018 10:23 - CONCLUSION: 1. 5.3 x 4.6 x 7.8 cm mediastinal mass lesion to the right and posterior of the left atrium. Mass impinges on the atrial lumen and actually appears to be a small tongue of tissue measuring 1.7 cm in diameter which protrudes into the atrial lumen. 2. Hypokinesis most prominent in the inferior wall and apex 3. Bilateral pleural effusions, right greater than left. River Quintero MD Lung Scan- Nuclear Medicine 01/11/18 0000 Signed Impressions: Service Date/Time: Thursday, January 11, 2018 11:00 - CONCLUSION: 1. The examination is negative for pulmonary embolus. Adama Briceño MD Chest CT 01/11/18 0000 Signed Impressions: Service Date/Time: Thursday, January 11, 2018 10:21 - CONCLUSION: 1. Bilateral pleural effusions, slightly larger than on prior CT 12/30/17. 2. 5 cm mass in the posterior mediastinum, similar to prior CT. The mediastinal structures are suboptimally evaluated due to the absence of mediastinal fat and lack of intravenous contrast. 3. Persistent right lower lobe consolidation. Bryon Evans MD Objective Remarks GENERAL: Awake alert and oriented 3 talkative and cooperative very thin appearing -[place] male SKIN: Warm and dry. HEAD: Atraumatic. Normocephalic. EYES: Pupils equal and round. No scleral icterus. No injection or drainage. Extraocular muscles intact ENT: No nasal bleeding or discharge. Mucous membranes pink and moist. Tongue is midline NECK: Trachea midline. No JVD. Supple CARDIOVASCULAR: IRRegular rate and rhythm. S1-S2 no S3 or S4 RESPIRATORY: No accessory muscle use. Clear to auscultation. Breath sounds equal bilaterally. GASTROINTESTINAL: Abdomen soft, non-tender, nondistended. Hepatic and splenic margins not palpable. MUSCULOSKELETAL: Extremities without clubbing, cyanosis, or edema. No obvious deformities. NEUROLOGICAL: Awake and alert. No obvious cranial nerve deficits. Motor grossly within normal limits. 4 out of 5 muscle strength in the arms and legs. Normal speech. PSYCHIATRIC: Appropriate mood and affect; insight and judgment normal. Procedures BL THORACENTESIS Procedure: US guided Thoracentesis Indication: Large right pleural effusion A time-out was completed verifying correct patient, procedure, site, positioning , and special equipment if applicable. The patients right side was prepped and draped in a sterile manner after the appropriate infiltration level was confirmed and marked by ultrasound. 1% lidocaine was used anesthetize the surrounding skin. A 10-blade scalpel used to make the incision. The thoracentesis Angio cath was then introduced without difficulty and needle was removed. Catheter was connected to Vacutainer bottle and 1400 ml of slightly cloudy light yellow fluid was removed. A post-procedure chest x-ray was ordered and the fluid will be sent for several studies. Estimated Blood Loss: <1 ml The patient tolerated the procedure well and there were no immediate complications. Leoan Balderrama MD Jan 12, 2018 11:51 Procedure: US guided Left Thoracentesis Indication: Large left pleural effusion, respiratory insufficiency A time-out was completed verifying correct patient, procedure, site, positioning , and special equipment if applicable. The patients left side was prepped and draped in a sterile manner after the appropriate infiltration level was confirmed and marked by ultrasound. 1% lidocaine was used anesthetize the surrounding skin. A 10-blade scalpel used to make the incision. The thoracentesis Angio cath was then introduced without difficulty and needle was removed. Catheter was connected to Vacutainer bottle and 1300 ml of cloudy light yellow fluid was removed. A post-procedure chest x-ray was ordered and the fluid will be sent for several studies. Estimated Blood Loss: <1 ml The patient tolerated the procedure well and there were no immediate complications. Leona Balderrama MD Jan 13, 2018 09:06 Medications and IVs Current Medications Sodium Chloride (NS Flush) 2 ml UNSCH PRN IVF FLUSH AFTER USING IV ACCESS; Start 01/11/18 at 08:30; Stop 01/11/18 at 13:55; Status DC Sodium Chloride 500 ml @ 500 mls/hr ONCE ONCE IV Last administered on at 08:53; Start 01/11/18 at 08:30; Stop 01/11/18 at 09:29; Status DC Sodium Chloride 500 ml @ 500 mls/hr BOLUS ONCE IV Last administered on at 09:45; Start 01/11/18 at 09:45; Stop 01/11/18 at 10:44; Status DC Sodium Chloride 1,000 ml @ 999 mls/hr BOLUS ONCE IV ; Start 01/11/18 at 13:30; Stop 01/11/18 at 13:32; Status DC Albumin Human 100 ml @ 60 mls/hr ONCE ONCE IV Last administered on 01/11/18at 13:48; Start 01/11/18 at 13:30; Stop 01/11/18 at 15:09; Status DC Sodium Chloride 500 ml @ 500 mls/hr BOLUS ONCE IV Last administered on at 15:00; Start 01/11/18 at 13:45; Stop 01/11/18 at 14:44; Status DC Sodium Chloride 1,000 ml @ 30 mls/hr Q24H IV Last administered on 01/13/18at 11: 56; Start 01/11/18 at 13:46 Sodium Chloride (NS Flush) 2 ml UNSCH PRN IV FLUSH FLUSH AFTER USING IV ACCESS ; Start 01/11/18 at 14:00 Sodium Chloride (NS Flush) 2 ml BID IV FLUSH Last administered on 01/14/18at 09: 44; Start 01/11/18 at 21:00 Acetaminophen (Tylenol) 650 mg Q6H PRN PO FEVER >101F; Start 01/11/18 at 14:00 Acetaminophen/ Hydrocodone Bitart ([place] 5-325 Mg) 1 tab Q4H PRN PO PAIN SCALE 1 TO 5; Start 01/11/18 at 14:00 Morphine Sulfate (Morphine Inj) 2 mg Q2H PRN IV PUSH PAIN SCALE 6 TO 10 Last administered on 01/13/18at 20:32; Start 01/11/18 at 14:15 Pantoprazole Sodium (Protonix) 40 mg DAILY PO ; Start 01/12/18 at 09:00; Status UNV Artificial Tears (Tears Naturale Opth Soln) 1 drop TID EACH EYE Last administered on 01/14/18at 09:00; Start 01/11/18 at 18:00 Ondansetron HCl (Zofran Inj) 4 mg Q6H PRN IV PUSH NAUSEA OR VOMITING; Start 01/11/18 at 14:00 Albuterol/ Ipratropium (Duoneb Neb) 1 ampule Q6HR NEB INH Last administered on 01/14/18 09:42; Start 01/11/18 at 16:00 Albuterol Sulfate (Albuterol Neb) 2.5 mg Q2HR NEB PRN INH SOB/WHEEZING; Start 01/11/18 at 14:00 Miscellaneous Information 1 [id number] XX Last administered on 01/11/18at 14:00; Start 01/11/18 at 14:00 Chlorhexidine Gluconate (Chlorhexidine 2% Cloth) 3 pack Taper DAILY@04 TOP Last administered on 01/13/18at 04:00; Start 01/12/18 at 04:00; Stop 01/08/19 at 03 :59 Chlorhexidine Gluconate (Chlorhexidine 2% Cloth) 3 pack UNSCH PRN TOP HYGIENIC CARE; Start 01/11/18 at 14:00 Senna/Docusate Sodium (Porsha-Colace) 1 tab BID PO Last administered on 01/14/18at 09:43; Start 01/11/18 at 21:00 Magnesium Hydroxide (Milk Of Magnesia Liq) 30 ml Q12H PRN PO Mild constipation ; Start 01/11/18 at 14:00 Sennosides (Senokot) 17.2 mg Q12H PRN PO Moderate constipation; Start 01/11/18 at 14:00 Bisacodyl (Dulcolax Supp) 10 mg DAILY PRN RECTAL SEVERE CONSITIPATION; Start at 14:00 Lactulose (Lactulose Liq) 30 ml DAILY PRN PO SEVERE CONSITIPATION; Start at 14:00 Calcium Carbonate (Oscal) 1,500 mg DAILY PO Last administered on 01/14/18 09:44 ; Start 01/12/18 at 09:00 Pantoprazole Sodium (Protonix) 40 mg DAILY PO Last administered on 01/14/18at 09: 44; Start 01/12/18 at 09:00 Phytonadione 10 mg/Sodium Chloride 51 ml @ 102 mls/hr ONCE ONCE IV Last administered on 01/12/18at 07:36; Start 01/12/18 at 07:15; Stop 01/12/18 at 07:44; Status DC Aspirin (Aspirin Chew) 81 mg DAILY CHEW Last administered on 01/14/18 09:44; Start 01/12/18 at 11:00 Metoprolol Tartrate (Lopressor) 12.5 mg Q12HR PO Last administered on 01/14/18 09:44; Start 01/12/18 at 12:45 Magnesium Sulfate/ Dextrose 100 ml @ 100 mls/hr Q1H IV Last administered on 01/12/18at 21:55; Start 01/12/18 at 13:00; Stop 01/12/18 at 14:59; Status DC Pharmacy Profile Note 0 ml @ 0 mls/hr UNSCH OTHER ; Start 01/13/18 at 09:15; Stop 01/13/18 at 14:23; Status DC Potassium Bicarb/ Potassium Chloride (K-Lyte Cl Eff) 25 meq ONCE ONCE PO Last administered on 01/13/18at 11:55; Start 01/13/18 at 11:00; Stop 01/13/18 at 11: 04; Status DC Magnesium Sulfate/ Dextrose 100 ml @ 100 mls/hr ONCE ONCE IV Last administered on 01/13/18at 11:55; Start 01/13/18 at 11:00; Stop 01/13/18 at 11:59; Status DC Gadodiamide (Omniscan Pf Inj) 20 ml STK-MED ONCE IVCONTRAST Last administered on 01/13/18at 11:37; Start 01/13/18 at 11:37; Stop 01/13/18 at 11:38; Status DC Heparin Sodium/ Dextrose 250 ml @ 11 mls/hr TITRATE PRN IV Coagulation Management Last administered on 01/13/18at 15:55; Start 01/13/18 at 16:00 A/P Assessment and Plan NSTEMI Nonsustained ventricular tachycardia Respiratory insufficiency Dehydration, oliguria Hypotension 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 Taveras, will probably need ischemic workup CATH TOMORROW 4-6 -Keep potassium more than 4, magnesium more than 2. 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 s/p 2 units of FFP and 10 mg IV vitamin K 01/12 -Aspirin 81 mg daily. At this time patient will not tolerate MARLO inhibitors or beta-blockers -Gentle hydration with isotonic crystalloid. -Follow renal function and natruretic peptide closely -Pepcid for GI ulcer prophylaxis -Patient is fully anticoagulated, holding SCDs, as the skin will macerate until hydrated -Follow-up labs chest x-ray in a.m. Discharge Planning Pending cardiac clearance and oncology clinic Kirk Long DO Jan 14, 2018 13:05
[2018-01-14] MEDS: SODIUM CHLOR 0.9% 1000 ML INJ 1,000 ML IV SCH ×2 (13:26→21:11)
[2018-01-14 15:35] LABS: AMYLASE BODY FLUID 8 U/L; AMYLASE BODY FLUID TYPE PLEURAL
[2018-01-14 17:48] LABS: HEMOGLOBIN A1C 5.3 % (4.3-6.0)
[2018-01-14] MEDS: MORPHINE SULFATE 2 MG/ML SYRINGE IV PUSH PRN (20:55)
[2018-01-15] VITALS (22 sets, daily range): BP systolic 105–123; BP diastolic 68–93; PULSE 82–98; RESP 16–22; TEMP 97.8–98.6; O2SAT 93–97
[2018-01-15] MEDS: CHLORHEXIDINE GLUCONATE 2 % 1 PACK (2 CLOTHS) TOP SCH ×2 (03:20→21:23)
[2018-01-15] MEDS: RESP: ALBUTEROL 2.5 MG/IPRATROPIUM 0.5 MG NEB (SCH) INH ×2 (03:34→09:53)
[2018-01-15] MEDS: MORPHINE SULFATE 2 MG/ML SYRINGE IV PUSH PRN (04:21)
[2018-01-15] MEDS: LEVOTHYROXINE SODIUM 25 MCG TAB PO SCH (04:21)
[2018-01-15 04:56] LABS: INTERNATIONAL NORMALIZED RATIO 1.4 RATIO; PROTHROMBIN TIME - PATIENT 14.5 SEC (9.8-11.6)
[2018-01-15 04:59] LABS: BASOPHIL % 0.5 % (0.0-2.0); EOSINOPHIL % 0.2 % (0.0-4.0); HEMATOCRIT 26.8 % (39.0-51.0); HEMOGLOBIN 8.9 GM/DL (13.0-17.0); LYMPH % 4.6 % (9.0-44.0); LYMPHOCYTE # 0.3 TH/MM3 (1.0-4.8); MEAN CELL VOLUME 80.7 FL (80.0-100.0); MEAN CORPUSCULAR HEMOGLOBIN 26.9 PG (27.0-34.0); MEAN CORPUSCULAR HGB CONC 33.4 % (32.0-36.0); MEAN PLATELET VOLUME 8.1 FL (7.0-11.0); MONO % 6.1 % (0.0-8.0); MONOCYTE # 0.3 TH/MM3 (0-0.9); NEUT % 88.6 % (16.0-70.0); PLATELET COUNT 263 TH/MM3 (150-450); RED BLOOD COUNT 3.32 MIL/MM3 (4.50-5.90); RED CELL DISTRIBUTION WIDTH 19.9 % (11.6-17.2); WHITE BLOOD COUNT 5.6 TH/MM3 (4.0-11.0)
[2018-01-15 05:08] LABS: AST (GOT) 21 U/L (15-37); BICARBONATE 19.6 MEQ/L (21.0-32.0); BLOOD UREA NITROGEN 12 MG/DL (7-18); CHLORIDE 107 MEQ/L (98-107); CREATININE 1.34 MG/DL (0.60-1.30); GLOMERULAR FILTRATION RATE 69 ML/MIN (>89); GLUCOSE,RANDOM 86 MG/DL (74-106); MAGNESIUM 1.8 MG/DL (1.5-2.5); SODIUM (NA) 138 MEQ/L (136-145)
[2018-01-15 05:13] LABS: ALKALINE PHOSPHATASE 105 U/L (45-117); ALT (GPT) LESS THAN 6 U/L (12-78); PHOSPHORUS 2.2 MG/DL (2.5-4.9); TOTAL BILIRUBIN ADULT 0.5 MG/DL (0.2-1.0); TOTAL PROTEIN 5.4 GM/DL (6.4-8.2)
[2018-01-15] MEDS ORDERED: HEPARIN-NS/PF FLUSH BAG 2,000 ML IV FLUSH ONE (08:31)
[2018-01-15] MEDS ORDERED: VERAPAMIL HCL 5 MG/2 ML VIAL ONE (08:33)
[2018-01-15] MEDS ORDERED: HEPARIN SODIUM - IV 10,000 UNITS/10 ML VIAL ONE (08:33)
[2018-01-15] MEDS ORDERED: LIDOCAINE HCL 1% PF 30 ML VIAL ONE (08:46)
[2018-01-15] MEDS: SODIUM CHLORIDE 0.9% FLUSH 10 ML FLUSH IV FLUSH SCH ×2 (09:00→21:17)
[2018-01-15] MEDS: DOCUSATE SODIUM 50 MG/SENNA 8.6 MG TAB PO SCH ×2 (09:00→21:00)
[2018-01-15] MEDS: ARTIFICIAL TEARS OPTH SOLN 15 ML BTL EACH EYE SCH ×3 (09:00→18:00)
--- NOTE | 2018-01-15 09:59 | CATHPROC ---
Associated Content HIS Report Study Information Study Number Admission Scheduled Start Study Start [id number] Jan 11 2018 1:40PM 01/14/2018 Jan 15 2018 8:16AM [facility] Cardiac Catheterization Admit Source Facility Department Emergency department [facility] Physician and Clinical Staff Initial Terry Hdz Steam Tunnel Feeder Mohan Wallace RN Other Lilo Alcantara,RT(R) (BS) Recorder Britta Castaneda RCIS TECH2 Scrub Yolanda Benz ,RT(R) Procedures Performed Procedure Location (Site) Vessel Name Coronary Angiograms LCA Left Coronary Coronary Angiograms RCA Right Coronary Equipment Time Technology Internship Description Size Mfg Part Number Used/Scraped TRANSDUCER, TRUWAVE [id number] 08:18 YAÑEZ SAXENA * Used W/STOCKCOCK *[id number] *[id number] 08:18 [employer] PACK, CCL CUSTOM * Used *[id number] 08:18 [employer] SUPPORT, ARTERIAL ADULT 67773 *[id number] Used [id number] 09:14 MEDTRONIC JL 3.5 DXTERITY CATHETER FR 5 Used *[id number] BAND, RADIAL COMPRESSION TR [id number] 09:25 [employer] MEDICAL 24CM Used SHORT 24 *[id number] 08:18 [employer] MEDICAL WIRE, EXCHANGE 260CM 3MMJ 260CM Used *[id number] 08:18 NAMIC MANIFOLD, 4 PORT * Used *[id number] 08:18 [employer]ED OMNIPAQUE, 350 MG, 150ML 150ML [id number] Used [id number] 08:18 [employer] MEDICAL BLANKET,WARM AIR CCL * Used *[id number] SHEATH, FR6 TRANSRADIAL [id number] 08:18 [employer]ERK[employer] MEDICAL FR 6 Used SLENDER 10CM *[id number] History: Allergies Allergy Reaction No Known Allergies milk Diarrhea Milk Containing Products diarrhea History: Risk Factors Family History of Hypertension Dyslipidemia Previous [place] Previous Heart Failure Premature CAD Yes No No No No Prior Valve Prior PCI Prior CABG Surgery No No No Cerebrovascular Peripheral Artery Chronic Lung On Dialysis Diabetes Disease Disease Disease No No No Yes No History: Symptoms/Diagnosis Selection Items SOB History: Stress Tests Stress or Imaging Studies Performed No History: Arrhythmias Selection Items Atrial fibrillation Non-sustained VT History: Other Disease Selection Items Cancer Renal Failure/Insufficiency History: Other Current Smoker Method Packs a Day Years Used Pack Years Yes Cigarettes 1 30 30 Labs Hgb (g/dl) Hct (%) RBC (MIL/MM3) WBC (l/cumm) Platelets (thousands) 11.60-17.00 35.00-51.00 4.00-5.90 4.00-11.00 150.00-450.00 8.9 26.8 3.3 5.6 263 Glucose (mg/dl) BUN (mg/dl) Creatinine (mg/dl) BUN:Creatinine (1:x) 74.00-106.00 7.00-18.00 0.50-1.30 10.00-20.00 101 11 1.5 7.3 Na (meq/l) K (meq/l) Cl (meq/l) Ca (mg/dl) 136.00-145.00 3.50-5.10 98.00-107.00 8.50-10.10 138 4.1 107 7.9 Troponin I (ng/ml) CPK (u/l) CPK-MB (ng/ML) 0.02-0.05 26.00-308.00 0.50-3.60 3.58 188 18.4 Medication Medication Total Dose (Bolus/Oral) Medication Total Dosage/Unit 1% XYLOCAINE 10 mL FENTANYL 50 mcg OXYGEN 2 l/min RADIAL COCKTAIL 5 mL (Bolus) Medications (Bolus/Oral) Medication Time Given Dosage/Unit Administered By Reason OXYGEN 01/15/2018 8:42:01 AM 2 l/min Mohan Wallace 2 l/min OXYGEN given in lab by Mohan Wallace RN via Nasal. Ordered by Terry Taveras 1% XYLOCAINE 01/15/2018 9:02:48 AM 10 mL Terry Taveras 10 mL 1% XYLOCAINE given in lab by Terry Taveras in Right Radial via Subcutaneous. Ordered by Terry Bello FENTANYL 01/15/2018 9:03:11 AM 50 mcg Mohan Wallace 50 mcg FENTANYL given in lab by Mohan Wallace RN in Right Antecubital via Peripheral IV. Ordered by Terry Taveras Ntg 200mcg Verapamil 2.5mg Heparin RADIAL COCKTAIL 01/15/2018 9:08:15 AM 5 mL (Bolus) Mohan Wallace 2500U 5 mL (Bolus) RADIAL COCKTAIL given in lab by Mohan Wallace RN in Right Radial via Radial. Using [Sidra arzateon Name]. Ordered by Terry Taveras Reason: Ntg 200mcg Verapamil 2.5mg Heparin 2500U. Medication (Drip) Medication Time Given Dosage/Unit Concentration/Unit Diluent (ml) Solution IV Solutions 01/15/2018 8:33:21 AM 0 mL (IV) 500 NaCl .9 Patient arrived on IV Solutions given by Terry Taveras in Right Antecubital via Peripheral IV. Pump/Drip Flow = 20 ml/hr using NaCl .9. Ordered by Terry Taveras. Initial Case Assessment Cardiovascular HR Rhythm NIBP 96 sr 119/87 Circulatory - Right Pulses Posterior Tibial Femoral Radial d 2 1 Scale (0,1,2,3,4,d) Circulatory - Left Pulses Posterior Tibial Femoral Radial Scale (0,1,2,3,4,d) Neurological State Oriented to time-place- Lethargic Moves all extremities person Respiration - General Respiration Rate SpO2 (%) O2 (lpm) (B/min) 33 97 2 Final Case Assessment Cardiovascular HR Rhythm NIBP Chest Pain 95 sr 115/84 0 Circulatory - Right Pulses Posterior Tibial Femoral Radial d 2 2 Scale (0,1,2,3,4,d) Circulatory - Left Pulses Posterior Tibial Femoral Radial Scale (0,1,2,3,4,d) Neurological State Oriented to time-place- Alert person Respiration - General Respiration Rate SpO2 (%) O2 (lpm) (B/min) 25 95 2 Chronological Log Time Study Chronological Log 8:32:56 Patient arrived via Bed. 8:32:57 Patient Name, D.O.B, / Armband Verified By R.N. 8:32:58 Consent signed by the physician and the patient and verified by the [facility] staff. 8:33:00 Pre-op and post- op instructions given; patient acknowledges understanding of instructions. 8:33:03 Allens test performed on the right radial and ulnar artery. 8:33:12 Patient has been NPO for More than 6Hrs. 8:33:14 NO Skin Breakdown- 8:33:17 Eric Prominences Protected 8:33:19 A # 20 IV was noted in the Antecubital (right). Grade = 0 Patient arrived on IV Solutions given by Terry Taveras in Right Antecubital via Peripheral IV. Pump/Drip Flow = 20 8:33:21 ml/hr using NaCl .9. Ordered by Terry Taveras. 8:33:22 History and physical on the chart or being dictated. 8:37:51 AN INFUSAPORT central IV was noted in the Subclav. Vein (Rt). 8:42:01 2 l/min OXYGEN given in lab by Mohan Wallace, RN via Nasal. Ordered by Terry Taveras. Vitals capture started with the following parameters, Patient=Adult, Interval=5 min, Initial Pre lfjhl=701 mmHg, 8:44:21 Deflation Rate=5 mmHg, Cuff placed on Unknown 8:44:51 HR=94 bpm, MQPB=589/87 mmhg, SpO2=98.0 %, Resp=33 B/min 8:46:26 Reference ECG taken Assessment: Initial Case, HR=96 BPM, Rhythm=sr, ETIW=095/87 mmhg Right Pulses: Post Tib=d, Femoral=2, Radial=1 8:46:32 Left Pulses: Chaim Ped=d Neurological: State=Lethargic, Ox3, GUTIERREZ Respiration: Resp=33 B/min, SpO2=97 %, O2=2 lpm 8:49:46 HR=96 bpm, NLTR=183/95 mmhg, SpO2=97 %, Resp=26 B/min 8:49:58 Right groin and right radial prepped with 2% chlorhexidine, and draped after a 3 min. waitin g time. 8:54:49 HR=93 bpm, ILCM=980/87 mmhg, SpO2=97 %, Resp=35 B/min 8:57:33 Pressure channel 1 zeroed. 8:57:43 MD arrived. 8:59:48 HR=95 bpm, JPJF=620/86 mmhg, SpO2=98 %, Resp=32 B/min Time Out. Correct patient, correct procedure, correct physician, power injector not loaded with contrast with surgical 9:01:11 team present. Time Out Concurred by MD and individual staff in procedure. 9:02:47 Case Start 10 mL 1% XYLOCAINE given in lab by Terry Taveras in Right Radial via Subcutaneous. Ordered by Nitin 9:02:48 Terry Malik 50 mcg FENTANYL given in lab by Mohan Wallace, RN in Right Antecubital via Peripheral IV. Ordere d by Terry Taveras 9:03:11 G. 9:04:49 HR=94 bpm, GHNC=891/83 mmhg, SpO2=25 %, Resp=24 B/min 9:08:03 Access site was Radial Artery. right A SHEATH, FR6 TRANSRADIAL SLENDER 10CM FR 6 was advanced into the Fem Art (right) using the Perc utaneous 9:08:04 technique. 5 mL (Bolus) RADIAL COCKTAIL given in lab by Mohan Wallace RN in Right Radial via Radial. Using [Solution Name]. 9:08:15 Ordered by Terry Taveras Reason: Ntg 200mcg Verapamil 2.5mg Heparin 2500U. A JR 4.0 INFINITI CATHETER FR 5 was advanced over a wire. OMNIPAQUE, 350 MG, 150ML 150ML was use d for 9:08:34 injections. 9:09:53 HR=93 bpm, HXYX=779/72 mmhg, SpO2=94.0 %, Resp=29 B/min Recorded Pressure: LV, HR=94, Condition=Condition 1 9:10:06 (Left Ventricle) LV 113/8/17 Recorded Pressure: LV, Ao, HR=93, Condition=Condition 1 9:10:20 (Left Ventricle) LV 111/3/12, (Aorta) Ao 115/83/98 9:11:36 The RCA was injected and visualized at various angles. OMNIPAQUE, 350 MG, 150ML 150ML use d. 9:11:43 Pressure channel 1 zeroed. 9:13:30 After removing the current catheter a catheter was advanced over a wire. After removing the current catheter a JL 3.5 DXTERITY CATHETER FR 5 was advanced over a WIRE, EXCHANGE 260CM 9:13:32 3MMJ 260CM. 9:14:50 HR=96 bpm, VFRC=969/79 mmhg, SpO2=94 %, Resp=25 B/min Recorded Pressure: Ao, HR=97, Condition=Condition 1 9:15:01 (Aorta) Ao 113/81/96 9:16:28 The LCA was injected and visualized at various angles. OMNIPAQUE, 350 MG, 150ML 150ML use d. 9:19:51 HR=95 bpm, NKQG=482/84 mmhg, SpO2=95 %, Resp=22 B/min 9:20:34 Catheter was removed 9:20:51 Case End Assessment: Final Case, HR=95 BPM, Rhythm=sr, FNYG=926/84 mmhg, Chest Pain=0 Right Pulses: Post Tib=d, Femoral=2, Radial=2 9:20:57 Left Pulses: Chaim Ped=d Neurological: State=Alert, Ox3 Respiration: Resp=25 B/min, SpO2=95 %, O2=2 lpm Radial Compression Device Used. 9 mLs of air placed in BAND, RADIAL COMPRESSION TR SHORT 24 24 CM. Affected 9:22:31 hand 96 % O2 saturation. 9:22:48 No case complications noted. 9:22:50 Cine recording checked. 9:24:52 HR=94 bpm, FNXX=790/81 mmhg, SpO2=96 %, Resp=27 B/min 9:29:30 Patient moved to bed End Study - Contrast Media Used In Study Contrast Total Opened (mL) Total Used (mL) Total Wasted (mL) Omnipaque 70 70 0 End Study - Maximum Contrast Load Max Contrast Load (mL) 211.7 End Study - Radiation Exposure Fluoro Time (minutes) 2.7 End Study - Sheaths Sheaths Pulled By Sheath Hold Time (min) Lilo Alcantara End Study - Patient Disposition Complications Transferred To Interventional Outcome No Telemetry Bed No attempt made
[2018-01-15] MEDS: PANTOPRAZOLE SOD 40 MG DELAYED RELEASE TAB PO SCH (10:51)
[2018-01-15] MEDS: ASPIRIN 81 MG CHEW TAB CHEW SCH (10:52)
[2018-01-15] MEDS: METOPROLOL TARTRATE 25 MG TAB PO SCH ×2 (11:01→21:22)
[2018-01-15] MEDS: CALCIUM CARBONATE 1.25 GM (CA 500 MG) TAB PO SCH (11:01)
[2018-01-15] MEDS ORDERED: IOHEXOL 350 MG/ML 100 ML BTL (for Cath Lab) OTHER ONE (12:08)
--- NOTE | 2018-01-15 12:29 | HHI.PR ---
Subjective Remarks This 47-year-old man with recently diagnosed non-Hodgkin's lymphoma, B-cell type , presents to the emergency department with worsening shortness of breath over the past 2 days. Particularly troublesome as his room air oxygen saturation of 80%. CAT scan of the chest shows hypovolemia and large bilateral pleural effusions. Aside from a fading parenchymal pneumonitis the lung canas are clear. There is a small amount of pericardial fluid is well. Cardiac echo is pending at this point but we know from history that he has a markedly depressed ventricular function. He is an Entresto has been held because of hypotension. On physical exam the gentleman appears markedly dehydrated but his B natriuretic peptide is also markedly hydrated. My impression is that we will just have to gingerly hydrate this gentleman and follow his pulmonary exam. There is no evidence of sepsis at this time. 01/12/18: Patient lying in bed slightly tachypneic. Chest x-ray shows at least moderate sized bilateral effusion. 2D echo yesterday showed probable atrial mass. Cardiac MRI ordered. Few nonsustained episodes of wide-complex tachycardia overnight. Troponin elevated, peaked at 3.6. Cardiology consulted. Start aspirin, will not tolerate beta blockers or MARLO inhibitors at this time 01/13: Subjectively much improved, respiratory duggan. Had thoracentesis and almost 1.5 L removed from the right side. Cardiac MRI pending. INR is 1.5. Will drain Left side today. Effusion appears malignant secondary to lymphoma, predominantly lymphocytes. On discussion with Dr. Connelly it appears patient has very aggressive nonresponding lymphoma 4-5 FOR CARDIAC CATH TOMORROW NO SOB NO CHEST PAIN MOVING ALL EXTREMITIES LYMPHOMA VERY AGGRESSIVE 4-6 HAD CARDIAC CATH NO INTERVENTIONS DONE POOR APPETITE DW RN AND PT AND CM AGGRESSIVE LYMPHOMA WILL GIVE ALBUMIN FLUIDS AND LASIX Objective Vitals Vital Signs Date Time Temp Pulse Resp B/P (MAP) Pulse Ox O2 Delivery O2 Flow Rate FiO2 01/15/18 12:00 84 01/15/18 11:21 98.0 93 22 114/81 (92) 95 01/15/18 11:00 89 01/15/18 10:00 90 01/15/18 09:53 95 21 01/15/18 08:00 97.8 94 22 115/83 (94) 95 01/15/18 08:00 94 01/15/18 07:00 92 01/15/18 04:34 16 01/15/18 04:18 98.6 93 18 105/78 (87) 93 01/15/18 04:00 92 01/15/18 00:00 98.4 98 20 107/68 (81) 94 01/15/18 00:00 90 01/14/18 22:07 98.9 86 18 68/38 (48) 96 01/14/18 20:52 98.3 101 20 104/73 (83) 94 01/14/18 20:00 98.6 107 20 100/63 (75) 96 01/14/18 20:00 102 01/14/18 19:46 97 01/14/18 18:00 98 01/14/18 17:00 96 01/14/18 16:00 98.6 90 30 112/78 (89) 96 01/14/18 16:00 96 01/14/18 15:00 88 01/14/18 15:00 98 01/14/18 14:00 96 01/14/18 13:00 85 I/O 01/14/18 01/14/18 01/14/18 01/15/18 01/15/18 01/15/18 07:00 15:00 23:00 07:00 15:00 23:00 Intake Total 480 ml 420 ml 240 ml Output Total 100 ml 150 ml 50 ml Balance 380 ml 270 ml 190 ml Intake Oral 480 ml 420 ml 240 ml Output Urine Total 100 ml 150 ml 50 ml Result Diagram: 01/15/18 0420 01/15/18 0420 Other Results Laboratory Tests Test 01/13/18 04:36 01/13/18 07:45 01/13/18 08:50 01/13/18 14:30 White Blood Count 6.8 TH/MM3 Red Blood Count 3.71 MIL/MM3 Hemoglobin 9.8 GM/DL Hematocrit 30.2 % Mean Corpuscular Volume 81.4 FL Mean Corpuscular Hemoglobin 26.5 PG Mean Corpuscular Hemoglobin Concent 32.6 % Red Cell Distribution Width 19.6 % Platelet Count 246 TH/MM3 Mean Platelet Volume 8.6 FL Neutrophils (%) (Auto) 86.2 % Lymphocytes (%) (Auto) 5.4 % Monocytes (%) (Auto) 8.3 % Eosinophils (%) (Auto) 0.0 % Basophils (%) (Auto) 0.1 % Neutrophils # (Auto) 5.8 TH/MM3 Lymphocytes # (Auto) 0.4 TH/MM3 Monocytes # (Auto) 0.6 TH/MM3 Eosinophils # (Auto) 0.0 TH/MM3 Basophils # (Auto) 0.0 TH/MM3 CBC Comment DIFF FINAL Differential Comment Blood Urea Nitrogen 12 MG/DL Creatinine 1.56 MG/DL Random Glucose 105 MG/DL Total Protein 5.8 GM/DL Albumin 2.3 GM/DL Calcium Level 7.8 MG/DL Magnesium Level 1.7 MG/DL Alkaline Phosphatase 113 U/L Aspartate Amino Transf (AST/SGOT) 37 U/L Alanine Aminotransferase (ALT/SGPT) LESS THAN 6 U/L Total Bilirubin 0.5 MG/DL Sodium Level 141 MEQ/L Potassium Level 3.5 MEQ/L Chloride Level 111 MEQ/L Carbon Dioxide Level 16.4 MEQ/L Anion Gap 14 MEQ/L Estimat Glomerular Filtration Rate 58 ML/MIN B-Type Natriuretic Peptide 1977 PG/ML Prothrombin Time 15.0 SEC 14.7 SEC Prothromb Time International Ratio 1.5 RATIO 1.5 RATIO Body Fluid Amylase Source PLEURAL Body Fluid Amylase 8 U/L Pleural Fluid WBC 55369 /MM3 Pleural Fluid RBC 7477 /MM3 Pleural Fluid Neutrophils 7 % Pleural Fluid Lymphocytes 92 % Pleural Fluid Monocytes 1 % Pleural Fluid Total Protein 1.8 GM/DL Pleural Fluid LDH 506 U/L Pleural Fluid Glucose 99 MG/DL Activated Partial Thromboplast Time 32.2 SEC Test 01/14/18 05:15 01/14/18 12:21 01/15/18 04:20 White Blood Count 5.3 TH/MM3 5.6 TH/MM3 Red Blood Count 3.36 MIL/MM3 3.32 MIL/MM3 Hemoglobin 8.9 GM/DL 8.9 GM/DL Hematocrit 27.8 % 26.8 % Mean Corpuscular Volume 82.6 FL 80.7 FL Mean Corpuscular Hemoglobin 26.6 PG 26.9 PG Mean Corpuscular Hemoglobin Concent 32.2 % 33.4 % Red Cell Distribution Width 20.1 % 19.9 % Platelet Count 233 TH/MM3 263 TH/MM3 Mean Platelet Volume 8.7 FL 8.1 FL Neutrophils (%) (Auto) 86.2 % 88.6 % Lymphocytes (%) (Auto) 5.0 % 4.6 % Monocytes (%) (Auto) 7.8 % 6.1 % Eosinophils (%) (Auto) 0.2 % 0.2 % Basophils (%) (Auto) 0.8 % 0.5 % Neutrophils # (Auto) 4.5 TH/MM3 5.0 TH/MM3 Lymphocytes # (Auto) 0.3 TH/MM3 0.3 TH/MM3 Monocytes # (Auto) 0.4 TH/MM3 0.3 TH/MM3 Eosinophils # (Auto) 0.0 TH/MM3 0.0 TH/MM3 Basophils # (Auto) 0.0 TH/MM3 0.0 TH/MM3 CBC Comment DIFF FINAL DIFF FINAL Differential Comment Prothrombin Time 14.6 SEC 14.5 SEC Prothromb Time International Ratio 1.4 RATIO 1.4 RATIO Activated Partial Thromboplast Time 49.3 SEC 49.2 SEC 49.7 SEC Blood Urea Nitrogen 11 MG/DL 12 MG/DL Creatinine 1.50 MG/DL 1.34 MG/DL Random Glucose 101 MG/DL 86 MG/DL Total Protein 5.3 GM/DL 5.4 GM/DL Albumin 2.0 GM/DL 2.0 GM/DL Calcium Level 7.9 MG/DL 8.0 MG/DL Phosphorus Level 1.9 MG/DL 2.2 MG/DL Magnesium Level 1.9 MG/DL 1.8 MG/DL Alkaline Phosphatase 98 U/L 105 U/L Aspartate Amino Transf (AST/SGOT) 23 U/L 21 U/L Alanine Aminotransferase (ALT/SGPT) LESS THAN 6 U/L LESS THAN 6 U/L Total Bilirubin 0.3 MG/DL 0.5 MG/DL Sodium Level 138 MEQ/L 138 MEQ/L Potassium Level 3.8 MEQ/L 4.1 MEQ/L Chloride Level 107 MEQ/L 107 MEQ/L Carbon Dioxide Level 18.7 MEQ/L 19.6 MEQ/L Anion Gap 12 MEQ/L 11 MEQ/L Estimat Glomerular Filtration Rate 60 ML/MIN 69 ML/MIN Hemoglobin A1c 5.3 % Free Thyroxine 1.23 NG/DL Thyroid Stimulating Hormone 3rd Gen 9.820 uIU/ML Imaging Last Impressions Chest X-Ray 01/14/18 0600 Signed Impressions: Service Date/Time: January 04:49 - CONCLUSION: No significant change Tacos Garcia MD Cardiac MRI 01/13/18 0000 Signed Impressions: Service Date/Time: Saturday, January 13, 2018 10:23 - CONCLUSION: 1. 5.3 x 4.6 x 7.8 cm mediastinal mass lesion to the right and posterior of the left atrium. Mass impinges on the atrial lumen and actually appears to be a small tongue of tissue measuring 1.7 cm in diameter which protrudes into the atrial lumen. 2. Hypokinesis most prominent in the inferior wall and apex 3. Bilateral pleural effusions, right greater than left. River Quintero MD Lung Scan-[facility] Nuclear Medicine 01/11/18 0000 Signed Impressions: Service Date/Time: Thursday, January 11, 2018 11:00 - CONCLUSION: 1. The examination is negative for pulmonary embolus. Adama Briceño MD Chest CT 01/11/18 0000 Signed Impressions: Service Date/Time: Thursday, January 11, 2018 10:21 - CONCLUSION: 1. Bilateral pleural effusions, slightly larger than on prior CT 12/30/17. 2. 5 cm mass in the posterior mediastinum, similar to prior CT. The mediastinal structures are suboptimally evaluated due to the absence of mediastinal fat and lack of intravenous contrast. 3. Persistent right lower lobe consolidation. Bryon Evans MD Objective Remarks GENERAL: Awake alert and oriented 3 talkative and cooperative very thin appearing -[place] male SKIN: Warm and dry. HEAD: Atraumatic. Normocephalic. EYES: Pupils equal and round. No scleral icterus. No injection or drainage. Extraocular muscles intact ENT: No nasal bleeding or discharge. Mucous membranes pink and moist. Tongue is midline NECK: Trachea midline. No JVD. Supple CARDIOVASCULAR: IRRegular rate and rhythm. S1-S2 no S3 or S4 RESPIRATORY: No accessory muscle use. Clear to auscultation. Breath sounds equal bilaterally. GASTROINTESTINAL: Abdomen soft, non-tender, nondistended. Hepatic and splenic margins not palpable. MUSCULOSKELETAL: Extremities without clubbing, cyanosis, or edema. No obvious deformities. NEUROLOGICAL: Awake and alert. No obvious cranial nerve deficits. Motor grossly within normal limits. 4 out of 5 muscle strength in the arms and legs. Normal speech. PSYCHIATRIC: Appropriate mood and affect; insight and judgment normal. Procedures BL THORACENTESIS Procedure: US guided Thoracentesis Indication: Large right pleural effusion A time-out was completed verifying correct patient, procedure, site, positioning , and special equipment if applicable. The patients right side was prepped and draped in a sterile manner after the appropriate infiltration level was confirmed and marked by ultrasound. 1% lidocaine was used anesthetize the surrounding skin. A 10-blade scalpel used to make the incision. The thoracentesis Angio cath was then introduced without difficulty and needle was removed. Catheter was connected to Vacutainer bottle and 1400 ml of slightly cloudy light yellow fluid was removed. A post-procedure chest x-ray was ordered and the fluid will be sent for several studies. Estimated Blood Loss: <1 ml The patient tolerated the procedure well and there were no immediate complications. Leona Balderrama MD Jan 12, 2018 11:51 Procedure: US guided Left Thoracentesis Indication: Large left pleural effusion, respiratory insufficiency A time-out was completed verifying correct patient, procedure, site, positioning , and special equipment if applicable. The patients left side was prepped and draped in a sterile manner after the appropriate infiltration level was confirmed and marked by ultrasound. 1% lidocaine was used anesthetize the surrounding skin. A 10-blade scalpel used to make the incision. The thoracentesis Angio cath was then introduced without difficulty and needle was removed. Catheter was connected to Vacutainer bottle and 1300 ml of cloudy light yellow fluid was removed. A post-procedure chest x-ray was ordered and the fluid will be sent for several studies. Estimated Blood Loss: <1 ml The patient tolerated the procedure well and there were no immediate complications. Leona Balderrama MD Jan 13, 2018 09:06 Medications and IVs Current Medications Sodium Chloride (NS Flush) 2 ml UNSCH PRN IVF FLUSH AFTER USING IV ACCESS; Start 01/11/18 at 08:30; Stop 01/11/18 at 13:55; Status DC Sodium Chloride 500 ml @ 500 mls/hr ONCE ONCE IV Last administered on at 08:53; Start 01/11/18 at 08:30; Stop 01/11/18 at 09:29; Status DC Sodium Chloride 500 ml @ 500 mls/hr BOLUS ONCE IV Last administered on at 09:45; Start 01/11/18 at 09:45; Stop 01/11/18 at 10:44; Status DC Sodium Chloride 1,000 ml @ 999 mls/hr BOLUS ONCE IV ; Start 01/11/18 at 13:30; Stop 01/11/18 at 13:32; Status DC Albumin Human 100 ml @ 60 mls/hr ONCE ONCE IV Last administered on 01/11/18at 13:48; Start 01/11/18 at 13:30; Stop 01/11/18 at 15:09; Status DC Sodium Chloride 500 ml @ 500 mls/hr BOLUS ONCE IV Last administered on at 15:00; Start 01/11/18 at 13:45; Stop 01/11/18 at 14:44; Status DC Sodium Chloride 1,000 ml @ 30 mls/hr Q24H IV Last administered on 01/14/18at 21: 11; Start 01/11/18 at 13:46 Sodium Chloride (NS Flush) 2 ml UNSCH PRN IV FLUSH FLUSH AFTER USING IV ACCESS ; Start 01/11/18 at 14:00 Sodium Chloride (NS Flush) 2 ml BID IV FLUSH Last administered on 01/14/18at 09: 44; Start 01/11/18 at 21:00 Acetaminophen (Tylenol) 650 mg Q6H PRN PO FEVER >101F; Start 01/11/18 at 14:00 Acetaminophen/ Hydrocodone Bitart ([place] 5-325 Mg) 1 tab Q4H PRN PO PAIN SCALE 1 TO 5; Start 01/11/18 at 14:00 Morphine Sulfate (Morphine Inj) 2 mg Q2H PRN IV PUSH PAIN SCALE 6 TO 10 Last administered on 01/15/18at 04:21; Start 01/11/18 at 14:15 Pantoprazole Sodium (Protonix) 40 mg DAILY PO ; Start 01/12/18 at 09:00; Status UNV Artificial Tears (Tears Naturale Opth Soln) 1 drop TID EACH EYE Last administered on 01/14/18 18:00; Start 01/11/18 at 18:00 Ondansetron HCl (Zofran Inj) 4 mg Q6H PRN IV PUSH NAUSEA OR VOMITING; Start 01/11/18 at 14:00 Albuterol/ Ipratropium (Duoneb Neb) 1 ampule Q6HR NEB INH Last administered on 01/15/18at 09:53; Start 01/11/18 at 16:00 Albuterol Sulfate (Albuterol Neb) 2.5 mg Q2HR NEB PRN INH SOB/WHEEZING; Start 01/11/18 at 14:00 Miscellaneous Information 1 Q361D XX Last administered on 01/11/18at 14:00; Start 01/11/18 at 14:00 Chlorhexidine Gluconate (Chlorhexidine 2% Cloth) 3 pack Taper DAILY@04 TOP Last administered on 01/13/18at 04:00; Start 01/12/18 at 04:00; Stop 01/08/19 at 03 :59 Chlorhexidine Gluconate (Chlorhexidine 2% Cloth) 3 pack UNSCH PRN TOP HYGIENIC CARE; Start 01/11/18 at 14:00 Senna/Docusate Sodium (Porsha-Colace) 1 tab BID PO Last administered on 01/14/18at 09:43; Start 01/11/18 at 21:00 Magnesium Hydroxide (Milk Of Magnesia Liq) 30 ml Q12H PRN PO Mild constipation ; Start 01/11/18 at 14:00 Sennosides (Senokot) 17.2 mg Q12H PRN PO Moderate constipation; Start 01/11/18 at 14:00 Bisacodyl (Dulcolax Supp) 10 mg DAILY PRN RECTAL SEVERE CONSITIPATION; Start at 14:00 Lactulose (Lactulose Liq) 30 ml DAILY PRN PO SEVERE CONSITIPATION; Start at 14:00 Calcium Carbonate (Oscal) 1,500 mg DAILY PO Last administered on 01/15/18at 11:01 ; Start 01/12/18 at 09:00 Pantoprazole Sodium (Protonix) 40 mg DAILY PO Last administered on 01/15/18at 10: 51; Start 01/12/18 at 09:00 Phytonadione 10 mg/Sodium Chloride 51 ml @ 102 mls/hr ONCE ONCE IV Last administered on 01/12/18at 07:36; Start 01/12/18 at 07:15; Stop 01/12/18 at 07:44; Status DC Aspirin (Aspirin Chew) 81 mg DAILY CHEW Last administered on 01/15/18at 10:52; Start 01/12/18 at 11:00 Metoprolol Tartrate (Lopressor) 12.5 mg Q12HR PO Last administered on 01/15/18 11:01; Start 01/12/18 at 12:45 Magnesium Sulfate/ Dextrose 100 ml @ 100 mls/hr Q1H IV Last administered on 21:55; Start 01/12/18 at 13:00; Stop 01/12/18 at 14:59; Status DC Pharmacy Profile Note 0 ml @ 0 mls/hr UNSCH OTHER ; Start 01/13/18 at 09:15; Stop 01/13/18 at 14:23; Status DC Potassium Bicarb/ Potassium Chloride (K-Lyte Cl Eff) 25 meq ONCE ONCE PO Last administered on 01/13/18 11:55; Start 01/13/18 at 11:00; Stop 01/13/18 at 11: 04; Status DC Magnesium Sulfate/ Dextrose 100 ml @ 100 mls/hr ONCE ONCE IV Last administered on 01/13/18 11:55; Start 01/13/18 at 11:00; Stop 01/13/18 at 11:59; Status DC Gadodiamide (Omniscan Pf Inj) 20 ml STK-MED ONCE IVCONTRAST Last administered on 01/13/18at 11:37; Start 01/13/18 at 11:37; Stop 01/13/18 at 11:38; Status DC Heparin Sodium/ Dextrose 250 ml @ 11 mls/hr TITRATE PRN IV Coagulation Management Last administered on 01/13/18 15:55; Start 01/13/18 at 16:00 Levothyroxine Sodium (Synthroid) 25 mcg DAILY@0600 PO Last administered on 04:21; Start 01/15/18 at 06:00 Heparin Sodium/ Sodium Chloride 2,000 ml @ As Directed STK-MED ONCE IV FLUSH ; Start 01/15/18 at 08:31; Stop 01/15/18 at 08:32; Status DC Verapamil HCl (Isoptin Inj) 5 mg STK-MED ONCE .ROUTE Last administered on 09:08; Start 01/15/18 at 08:33; Stop 01/15/18 at 08:34; Status DC Heparin Sodium (Porcine) (Heparin Inj) 10,000 units STK-MED ONCE .ROUTE Last administered on 01/15/18at 09:08; Start 01/15/18 at 08:33; Stop 01/15/18 at 08:34; Status DC Lidocaine HCl (Xylocaine-Mpf 1% Inj) 30 ml STK-MED ONCE .ROUTE Last administered on 01/15/18at 08:46; Start 01/15/18 at 08:46; Stop 01/15/18 at 08:47; Status DC Fentanyl Citrate (fentaNYL INJ) 100 mcg STK-MED ONCE .ROUTE Last administered on 01/15/18at 09:03; Start 01/15/18 at 09:02; Stop 01/15/18 at 09:03; Status DC Iohexol (OMNIPAQUE 350 INJ (Sales Host)) 100 ml STK-MED ONCE OTHER ; Start at 12:08; Stop 01/15/18 at 12:09; Status DC A/P Assessment and Plan NSTEMI Nonsustained ventricular tachycardia Respiratory insufficiency Dehydration, oliguria Hypotension 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 Taveras, will probably need ischemic workup CATH TOMORROW 01-15- SP CATH - STABLE -Keep potassium more than 4, magnesium more than 2. 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 s/p 2 units of FFP and 10 mg IV vitamin K 01/12 -Aspirin 81 mg daily. At this time patient will not tolerate MARLO inhibitors or beta-blockers -Gentle hydration with isotonic crystalloid. -Follow renal function and natruretic peptide closely -Pepcid for GI ulcer prophylaxis -Patient is fully anticoagulated, holding SCDs, as the skin will macerate until hydrated -Follow-up labs chest x-ray in a.m. PCM WILL GIVE ALBUMIN AND FLUIDS AND LASIX Discharge Planning TRANSFER TO ONCOLOGY SIDE Kirk Long DO Jan 15, 2018 12:29
--- NOTE | 2018-01-15 13:01 | PD.CARD.PN ---
Subjective Subjective Remarks No events overnight Post-cath, mild CAD Objective Medications Current Medications Medications (Trade) Dose Ordered Sig/Shyla Route Start Time Stop Time Status Last Admin Sodium Chloride 1,000 ml @ 30 mls/hr Q24H IV 01/11/18 13:46 01/14/18 21:11 (NS Flush) 2 ml UNSCH PRN IV FLUSH 01/11/18 14:00 (NS Flush) 2 ml BID IV FLUSH 01/11/18 21:00 01/14/18 09:44 (Tylenol) 650 mg Q6H PRN PO 01/11/18 14:00 ([place] 5-325 Mg) 1 tab Q4H PRN PO 01/11/18 14:00 (Morphine Inj) 2 mg Q2H PRN IV PUSH 01/11/18 14:15 01/15/18 04:21 (Tears Naturale Opth Soln) 1 drop TID EACH EYE 01/11/18 18:00 01/14/18 18:00 (Zofran Inj) 4 mg Q6H PRN IV PUSH 01/11/18 14:00 (Duoneb Neb) 1 ampule Q6HR NEB INH 01/11/18 16:00 01/15/18 09:53 (Albuterol Neb) 2.5 mg Q2HR NEB PRN INH 01/11/18 14:00 Miscellaneous Information 1 Q361D XX 01/11/18 14:00 01/11/18 14:00 (Chlorhexidine 2% Cloth) 3 pack Taper DAILY@04 TOP 01/12/18 04:00 01/08/19 03:59 01/13/18 04:00 (Chlorhexidine 2% Cloth) 3 pack UNSCH PRN TOP 01/11/18 14:00 (Porsha-Colace) 1 tab BID PO 01/11/18 21:00 01/14/18 09:43 (Milk Of Magnesia Liq) 30 ml Q12H PRN PO 01/11/18 14:00 (Senokot) 17.2 mg Q12H PRN PO 01/11/18 14:00 (Dulcolax Supp) 10 mg DAILY PRN RECTAL 01/11/18 14:00 (Lactulose Liq) 30 ml DAILY PRN PO 01/11/18 14:00 (Oscal) 1,500 mg DAILY PO 01/12/18 09:00 01/15/18 11:01 (Protonix) 40 mg DAILY PO 01/12/18 09:00 01/15/18 10:51 (Aspirin Chew) 81 mg DAILY CHEW 01/12/18 11:00 01/15/18 10:52 (Lopressor) 12.5 mg Q12HR PO 01/12/18 12:45 01/15/18 11:01 Heparin Sodium/ Dextrose 250 ml @ 11 mls/hr TITRATE PRN IV 01/13/18 16:00 01/13/18 15:55 (Synthroid) 25 mcg DAILY@0600 PO 01/15/18 06:00 01/15/18 04:21 Albumin Human 100 ml @ 60 mls/hr Q8H IV 01/15/18 13:00 Sodium Chloride 1,000 ml @ 84 mls/hr [id number] IV 01/15/18 13:00 (Lasix Inj) 20 mg DAILY IV PUSH 01/16/18 09:00 Vital Signs / I&O Vital Signs Date Time Temp Pulse Resp B/P (MAP) Pulse Ox O2 Delivery O2 Flow Rate FiO2 01/15/18 12:00 84 01/15/18 11:21 98.0 93 22 114/81 (92) 95 01/15/18 11:00 89 01/15/18 10:00 90 01/15/18 09:53 95 21 01/15/18 08:00 97.8 94 22 115/83 (94) 95 01/15/18 08:00 94 01/15/18 07:00 92 01/15/18 04:34 16 01/15/18 04:18 98.6 93 18 105/78 (87) 93 01/15/18 04:00 92 01/15/18 00:00 98.4 98 20 107/68 (81) 94 01/15/18 00:00 90 01/14/18 22:07 98.9 86 18 68/38 (48) 96 01/14/18 20:52 98.3 101 20 104/73 (83) 94 01/14/18 20:00 98.6 107 20 100/63 (75) 96 01/14/18 20:00 102 01/14/18 19:46 97 01/14/18 18:00 98 01/14/18 17:00 96 01/14/18 16:00 98.6 90 30 112/78 (89) 96 01/14/18 16:00 96 01/14/18 15:00 88 01/14/18 15:00 98 01/14/18 14:00 96 I/O 01/14/18 01/14/18 01/14/18 01/15/18 01/15/18 01/15/18 07:00 15:00 23:00 07:00 15:00 23:00 Intake Total 480 ml 420 ml 240 ml Output Total 100 ml 150 ml 50 ml Balance 380 ml 270 ml 190 ml Intake Oral 480 ml 420 ml 240 ml Output Urine Total 100 ml 150 ml 50 ml Physical Exam GENERAL: NAD, AAOx3 SKIN: Warm and dry. HEAD: Atraumatic. Normocephalic. EYES: Pupils equal and round. No scleral icterus. No injection or drainage. ENT: No nasal bleeding or discharge. Mucous membranes pink and moist. NECK: Trachea midline. No JVD. CARDIOVASCULAR: Regular rate and rhythm. RESPIRATORY: Decreased breath sounds GASTROINTESTINAL: Abdomen soft, non-tender, nondistended. Hepatic and splenic margins not palpable. MUSCULOSKELETAL: Extremities without clubbing, cyanosis, or edema. No obvious deformities. NEUROLOGICAL: Awake and alert. No obvious cranial nerve deficits. Motor grossly within normal limits. Five out of 5 muscle strength in the arms and legs. Normal speech. PSYCHIATRIC: Appropriate mood and affect; insight and judgment normal. Laboratory Laboratory Tests Test 01/15/18 04:20 White Blood Count 5.6 TH/MM3 Red Blood Count 3.32 MIL/MM3 Hemoglobin 8.9 GM/DL Hematocrit 26.8 % Mean Corpuscular Volume 80.7 FL Mean Corpuscular Hemoglobin 26.9 PG Mean Corpuscular Hemoglobin Concent 33.4 % Red Cell Distribution Width 19.9 % Platelet Count 263 TH/MM3 Mean Platelet Volume 8.1 FL Neutrophils (%) (Auto) 88.6 % Lymphocytes (%) (Auto) 4.6 % Monocytes (%) (Auto) 6.1 % Eosinophils (%) (Auto) 0.2 % Basophils (%) (Auto) 0.5 % Neutrophils # (Auto) 5.0 TH/MM3 Lymphocytes # (Auto) 0.3 TH/MM3 Monocytes # (Auto) 0.3 TH/MM3 Eosinophils # (Auto) 0.0 TH/MM3 Basophils # (Auto) 0.0 TH/MM3 CBC Comment DIFF FINAL Differential Comment Prothrombin Time 14.5 SEC Prothromb Time International Ratio 1.4 RATIO Activated Partial Thromboplast Time 49.7 SEC Blood Urea Nitrogen 12 MG/DL Creatinine 1.34 MG/DL Random Glucose 86 MG/DL Total Protein 5.4 GM/DL Albumin 2.0 GM/DL Calcium Level 8.0 MG/DL Phosphorus Level 2.2 MG/DL Magnesium Level 1.8 MG/DL Alkaline Phosphatase 105 U/L Aspartate Amino Transf (AST/SGOT) 21 U/L Alanine Aminotransferase (ALT/SGPT) LESS THAN 6 U/L Total Bilirubin 0.5 MG/DL Sodium Level 138 MEQ/L Potassium Level 4.1 MEQ/L Chloride Level 107 MEQ/L Carbon Dioxide Level 19.6 MEQ/L Anion Gap 11 MEQ/L Estimat Glomerular Filtration Rate 69 ML/MIN Assessment and Plan Problem List: (1) Diffuse large B cell lymphoma ICD Codes: C83.30 - Diffuse large B-cell lymphoma, unspecified site (2) Cardiomyopathy ICD Codes: I42.9 - Cardiomyopathy, unspecified (3) Pleural effusion ICD Codes: J90 - Pleural effusion, not elsewhere classified Status: Resolved (4) Acute respiratory failure with hypoxia ICD Codes: J96.01 - Acute respiratory failure with hypoxia Status: Acute (5) Elevated troponin ICD Codes: R74.8 - Abnormal levels of other serum enzymes Assessment and Plan 1) Bilateral thoracentesis Malignant effusions 2) Aggressive lymphoma per Heme/Onc 3) NSTEMI/Wide complex tachycardia No further arrhythmias Cardiac cath showing no significant CAD Heparin drip can be stopped from my standpoint, should be determined if necessary for history of PE BB therapy ASA 4) Hx of PE 5) Left atrial mass Cardiac MRI showing a large mass impinging on the left atrium Can definitely cause arrhythmias, but more likely atrial arrhythmias Terry Taveras DO Jan 15, 2018 13:01
[2018-01-15] MEDS: ALBUMIN 25% INJ 100 ML IV SCH ×2 (13:23→21:16)
--- NOTE | 2018-01-15 14:30 | PD.ONC.PN ---
Subjective Subjective Remarks Afebrile overnight. Patient resting in bed in nad. No complaints. s/p cardiac catheterization this AM without complication. Objective Data Date Time Temp Pulse Resp B/P (MAP) Pulse Ox O2 Delivery O2 Flow Rate FiO2 01/15/18 13:00 86 01/15/18 12:00 84 01/15/18 11:21 98.0 93 22 114/81 (92) 95 01/15/18 11:00 89 01/15/18 10:00 90 01/15/18 09:53 95 21 01/15/18 08:00 97.8 94 22 115/83 (94) 95 01/15/18 08:00 94 01/15/18 07:00 92 01/15/18 04:34 16 01/15/18 04:18 98.6 93 18 105/78 (87) 93 01/15/18 04:00 92 01/15/18 00:00 98.4 98 20 107/68 (81) 94 01/15/18 00:00 90 01/14/18 22:07 98.9 86 18 68/38 (48) 96 01/14/18 20:52 98.3 101 20 104/73 (83) 94 01/14/18 20:00 98.6 107 20 100/63 (75) 96 01/14/18 20:00 102 01/14/18 19:46 97 01/14/18 18:00 98 01/14/18 17:00 96 01/14/18 16:00 98.6 90 30 112/78 (89) 96 01/14/18 16:00 96 01/14/18 15:00 88 01/14/18 15:00 98 01/15/18 01/15/18 01/15/18 07:00 15:00 23:00 Intake Total 240 ml Output Total 50 ml Balance 190 ml Result Diagram: 01/15/18 0420 01/15/18 042 Laboratory Results Laboratory Tests Test 01/15/18 04:20 White Blood Count 5.6 TH/MM3 Red Blood Count 3.32 MIL/MM3 Hemoglobin 8.9 GM/DL Hematocrit 26.8 % Mean Corpuscular Volume 80.7 FL Mean Corpuscular Hemoglobin 26.9 PG Mean Corpuscular Hemoglobin Concent 33.4 % Red Cell Distribution Width 19.9 % Platelet Count 263 TH/MM3 Mean Platelet Volume 8.1 FL Neutrophils (%) (Auto) 88.6 % Lymphocytes (%) (Auto) 4.6 % Monocytes (%) (Auto) 6.1 % Eosinophils (%) (Auto) 0.2 % Basophils (%) (Auto) 0.5 % Neutrophils # (Auto) 5.0 TH/MM3 Lymphocytes # (Auto) 0.3 TH/MM3 Monocytes # (Auto) 0.3 TH/MM3 Eosinophils # (Auto) 0.0 TH/MM3 Basophils # (Auto) 0.0 TH/MM3 CBC Comment DIFF FINAL Differential Comment Prothrombin Time 14.5 SEC Prothromb Time International Ratio 1.4 RATIO Activated Partial Thromboplast Time 49.7 SEC Blood Urea Nitrogen 12 MG/DL Creatinine 1.34 MG/DL Random Glucose 86 MG/DL Total Protein 5.4 GM/DL Albumin 2.0 GM/DL Calcium Level 8.0 MG/DL Phosphorus Level 2.2 MG/DL Magnesium Level 1.8 MG/DL Alkaline Phosphatase 105 U/L Aspartate Amino Transf (AST/SGOT) 21 U/L Alanine Aminotransferase (ALT/SGPT) LESS THAN 6 U/L Total Bilirubin 0.5 MG/DL Sodium Level 138 MEQ/L Potassium Level 4.1 MEQ/L Chloride Level 107 MEQ/L Carbon Dioxide Level 19.6 MEQ/L Anion Gap 11 MEQ/L Estimat Glomerular Filtration Rate 69 ML/MIN Culture Results Microbiology Date/Time Source Procedure Growth Status 01/13/18 08:50 Fluid Pleural Fluid Fungal Smear - Final NO FUNGAL ELEMENTS SEEN. Resulted 01/13/18 08:50 Fluid Pleural Fluid Fungal Culture Pending Resulted 01/13/18 08:50 Fluid Pleural Fluid Acid Fast Stain - Final NO ACID FAST BACILLI SEEN Resulted 01/13/18 08:50 Fluid Pleural Fluid Mycobacterial Culture Pending Resulted 01/13/18 08:50 Fluid Pleural Fluid Gram Stain - Final Resulted 01/13/18 08:50 Fluid Pleural Fluid Body Fluid Culture - Preliminary NO GROWTH IN 48 HOURS. Resulted Administered Medications Medications (Trade) Dose Ordered Sig/Shyla Route PRN Reason Start Time Stop Time Status Last Admin Dose Admin Sodium Chloride 1,000 ml @ 30 mls/hr Q24H IV 01/11/18 13:46 01/14/18 21:11 Sodium Chloride (NS Flush) 2 ml BID IV FLUSH 01/11/18 21:00 01/14/18 09:44 Morphine Sulfate (Morphine Inj) 2 mg Q2H PRN IV PUSH PAIN SCALE 6 TO 10 01/11/18 14:15 01/15/18 04:21 Artificial Tears (Tears Naturale Opth Soln) 1 drop TID EACH EYE 01/11/18 18:00 01/15/18 13:25 Albuterol/ Ipratropium (Duoneb Neb) 1 ampule Q6HR NEB INH 01/11/18 16:00 01/15/18 09:53 Miscellaneous Information 1 Q361D XX 01/11/18 14:00 01/11/18 14:00 Chlorhexidine Gluconate (Chlorhexidine 2% Cloth) 3 pack Taper DAILY@04 TOP 01/12/18 04:00 01/08/19 03:59 01/13/18 04:00 Senna/Docusate Sodium (Porsha-Colace) 1 tab BID PO 01/11/18 21:00 01/14/18 09:43 Calcium Carbonate (Oscal) 1,500 mg DAILY PO 01/12/18 09:00 01/15/18 11:01 Pantoprazole Sodium (Protonix) 40 mg DAILY PO 01/12/18 09:00 01/15/18 10:51 Aspirin (Aspirin Chew) 81 mg DAILY CHEW 01/12/18 11:00 01/15/18 10:52 Metoprolol Tartrate (Lopressor) 12.5 mg Q12HR PO 01/12/18 12:45 01/15/18 11:01 Heparin Sodium/ Dextrose 250 ml @ 11 mls/hr TITRATE PRN IV Coagulation Management 01/13/18 16:00 01/13/18 15:55 Levothyroxine Sodium (Synthroid) 25 mcg DAILY@0600 PO 01/15/18 06:00 01/15/18 04:21 Albumin Human 100 ml @ 60 mls/hr Q8H IV 01/15/18 13:00 01/15/18 13:23 Objective Remarks GENERAL: Middle aged male, supine in bed resting. SKIN: Warm and dry. HEAD: Normocephalic. EYES: no injection or drainage. NECK: Supple, trachea midline. CARDIOVASCULAR: +S1/S2 RESPIRATORY: anterior canas clear GASTROINTESTINAL: Abdomen soft, non-tender, nondistended. EXTREMITIES: No cyanosis NEUROLOGICAL: awake, alert. normal speech. Assessment/Plan Problem List: (1) Diffuse large B cell lymphoma ICD Codes: C83.30 - Diffuse large B-cell lymphoma, unspecified site Plan: 01/15: plan to give chemotherapy Thursday--will give inpatient if still in the hospital. will give in the clinic if discharged over the weekend. --high risk lymphoma. --s/p 5 cycles of Rituxan and EPOCH with partial response. --Chemotherapy was stopped when he developed sepsis and bacterial endocarditis. He also subsequently developed severe cardiomyopathy with an ejection fraction of around 25%. --developed progression of disease when he was off chemotherapy. PET scan showed increased adenopathy in the mediastinum extending along the paraspinous region down to the abdomen. ++also uptake in the gastroesophageal junction area down to the angel hepatis. ++scattered retroperitoneal adenopathy and a few pulmonary nodules. --s/p 1 cycle of Rituxan, bendamustine 12/15/2017. His right supraclavicular adenopathy seems smaller. CT of thorax still showed the mediastinal adenopathy. ?partial response. (2) Pleural effusion ICD Codes: J90 - Pleural effusion, not elsewhere classified Status: Resolved Plan: --++malignant pleural effusion confirmed by pathology --CT showed increased pleural effusions, right greater than left. --s/p thoracentesis on 01/13 (3) Pericardial effusion without cardiac tamponade ICD Codes: I31.3 - Pericardial effusion (noninflammatory) Plan: --Malignant pericardial effusion. --was admitted to the hospital 12/30/2017 with a large pericardial effusion and possible cardiac tamponade. --had a subxiphoid window procedure. Pericardial fluid cytology and pericardium were positive for lymphoma. (4) Cardiomyopathy ICD Codes: I42.9 - Cardiomyopathy, unspecified Plan: --repeat echocardiogram shows ejection fraction is back up to 55%. --developed after the bacterial endocarditis. (5) Pulmonary emboli ICD Codes: I26.99 - Other pulmonary embolism without acute cor pulmonale Status: Chronic Plan: --continue heparin gtt, bridge to coumadin. Assessment 47y/o male with lymphoma, admitted with dyspnea. h/o High grade B cell lymphoma. Malignant pericardial effusion. Hypertension. Pulmonary embolism. Renal failure. Bacterial endocarditis.Cardiomyopathy.Pleural effusion.Infected port.History of methicillin-resistant Staphylococcus aureus infection. History of Clostridium difficile colitis. Plan 1. patient can be discharged when cleared by cardiology 2. if discharged over the weekend, patient will need to come to the clinic for chemotherapy early next week 3. continue supportive care Attending Statement The exam, history, and the medical decision-making described in the above note were completed with the assistance of the mid-level provider. I reviewed and agree with the findings presented. I attest that I had a [id number] encounter with the patient on the same day, and personally performed and documented my assessment and findings in the medical record. Feeling better. Cardiac cath showed no significant CAD. Continue heaprin and bridge to coumadin. He can be d/c when clear by cardiology and f/u oncology clinic. Problem Qualifiers (1) Pulmonary emboli: Brenda Platt Jan 15, 2018 14:30 Ruslan Connelly MD Jan 15, 2018 18:05
[2018-01-15] MEDS ORDERED: WARFARIN SOD 3 MG TAB PO SCH (16:00)
[2018-01-15] MEDS: SODIUM CHLOR 0.9% 1000 ML INJ 1,000 ML IV SCH (21:16)
--- NOTE | 2018-01-15 22:55 | MA ---
cc: Terry Taveras DO DATE: 01/15/2018 PROCEDURE: Left heart catheterization, coronary angiogram. PREPROCEDURE DIAGNOSES: Elevated troponin, wide complex tachycardia. POSTPROCEDURE DIAGNOSIS: Mild to moderate coronary artery disease. MEDICATIONS: Fentanyl 50 mcg, verapamil 2.5 mg, nitroglycerin 200 mcg, heparin 2500 units. CONTRAST USED: 70 mL FLUOROSCOPY: 2.7 minutes. MODERATE SEDATION: Zero minutes. ESTIMATED BLOOD LOSS: 10 mL PROCEDURAL SUMMARY: Jovani Werner is a pleasant 47-year-old male who presented to [facility] Emergency Room due to shortness of breath. He was found to have an elevated troponin and did have some wide complex tachycardia, and so he was recommended cardiac catheterization. Risks, benefits and alternatives were explained to him and he consented to such. He was brought to the lab and prepped in the usual sterile fashion. The right radial artery was accessed using a modified Seldinger technique and placement of a 5/6 [place] Slender sheath. This was easily aspirated and flushed. A JR4 was advanced over a J-wire to the ascending aorta and across the aortic valve for measurement of left ventricular pressure. This was pulled back across the aortic valve showing no significant gradient of aortic stenosis. JR4 was used for selective angiography of the right coronary artery system. This is exchanged out for a JL3.5, which was used for selective angiography of the left coronary artery system. JL3.5 was removed over a J wire. A radial band was placed over the arteriotomy site for hemostasis. The patient left the micro lab analyst cardiovascularly stable. FINDINGS: LEFT MAIN: Normal size vessel with adequate reflux. It bifurcates into an LAD and circumflex. LEFT ANTERIOR DESCENDING: Normal size vessel with mild luminal irregularities throughout the proximal portion and no significant disease noted. It gives off 1 major diagonal with no significant disease. LEFT CIRCUMFLEX: Small to moderate sized vessel with mild luminal irregularities throughout the proximal to mid portion. There is 20% disease noted in the mid to distal portion. It gives off 3 small obtuse marginals which have diffuse 30% disease. RIGHT CORONARY ARTERY: Normal size vessel with mild tortuosity and up to 40% disease throughout the mid to distal portion. It is a dominant vessel and supplies the PDA as well as the PLB. LEFT VENTRICULAR END DIASTOLIC PRESSURE: 12. IMPRESSIONS: 1. Elevated troponin and wide complex tachycardia, possibly due to his cardiac lymphoma. 2. Left atrial mass. 3. Aggressive B cell type lymphoma. RECOMMENDATIONS: 1. Mr. Werner appears to have no significant coronary artery disease and he will be recommended continued medical therapy. 2. He did have wide complex tachycardia and this may be due to his lymphoma impinging on the part of his left atrium. He will continue on beta sharon therapy. 3. Further recommendations will be made based on the hospital course. Thank you for allowing me to see Jovani Werner. If there are any questions please do not hesitate to call. Terry Taveras DO VGP/rt , 10:20 PM , 10:54 PM
[2018-01-16] VITALS (24 sets, daily range): BP systolic 121–134; BP diastolic 91–98; PULSE 72–84; RESP 16–20; TEMP 97.4–97.8; O2SAT 93–97
[2018-01-16] MEDS: ACETAMINOPHEN/HYDROcodone 325 MG/5 MG TAB PO PRN ×4 (01:55→21:44)
[2018-01-16] MEDS: LEVOTHYROXINE SODIUM 25 MCG TAB PO SCH (05:59)
[2018-01-16] MEDS: ALBUMIN 25% INJ 100 ML IV SCH ×3 (06:00→21:32)
[2018-01-16 06:59] LABS: INTERNATIONAL NORMALIZED RATIO 1.6 RATIO; PROTHROMBIN TIME - PATIENT 16.1 SEC (9.8-11.6)
[2018-01-16 07:10] LABS: ALBUMIN 2.7 GM/DL (3.4-5.0); ALKALINE PHOSPHATASE 198 U/L (45-117); ALT (GPT) LESS THAN 6 U/L (12-78); AST (GOT) 23 U/L (15-37); BICARBONATE 14.2 MEQ/L (21.0-32.0); BLOOD UREA NITROGEN 15 MG/DL (7-18); CALCIUM 8.4 MG/DL (8.5-10.1); CHLORIDE 108 MEQ/L (98-107); CREATININE 1.43 MG/DL (0.60-1.30); GLOMERULAR FILTRATION RATE 64 ML/MIN (>89); GLUCOSE,RANDOM 69 MG/DL (74-106); MAGNESIUM 1.9 MG/DL (1.5-2.5); PHOSPHORUS 3.4 MG/DL (2.5-4.9); SODIUM (NA) 136 MEQ/L (136-145); TOTAL BILIRUBIN ADULT 0.8 MG/DL (0.2-1.0); TOTAL PROTEIN 5.9 GM/DL (6.4-8.2)
[2018-01-16 07:29] LABS: BASOPHIL % 0.6 % (0.0-2.0); EOSINOPHIL % 0.2 % (0.0-4.0); HEMATOCRIT 28.1 % (39.0-51.0); HEMOGLOBIN 9.1 GM/DL (13.0-17.0); LYMPH % 3.8 % (9.0-44.0); LYMPHOCYTE # 0.3 TH/MM3 (1.0-4.8); MEAN CELL VOLUME 82.8 FL (80.0-100.0); MEAN CORPUSCULAR HEMOGLOBIN 26.8 PG (27.0-34.0); MEAN CORPUSCULAR HGB CONC 32.3 % (32.0-36.0); MEAN PLATELET VOLUME 8.8 FL (7.0-11.0); MONO % 4.8 % (0.0-8.0); MONOCYTE # 0.3 TH/MM3 (0-0.9); NEUT % 90.6 % (16.0-70.0); PLATELET COUNT 255 TH/MM3 (150-450); RED BLOOD COUNT 3.39 MIL/MM3 (4.50-5.90); RED CELL DISTRIBUTION WIDTH 20.6 % (11.6-17.2); WHITE BLOOD COUNT 6.7 TH/MM3 (4.0-11.0)
[2018-01-16] MEDS: DOCUSATE SODIUM 50 MG/SENNA 8.6 MG TAB PO SCH ×2 (08:12→21:00)
[2018-01-16] MEDS: PANTOPRAZOLE SOD 40 MG DELAYED RELEASE TAB PO SCH (08:12)
[2018-01-16] MEDS: CALCIUM CARBONATE 1.25 GM (CA 500 MG) TAB PO SCH (08:12)
[2018-01-16] MEDS: ARTIFICIAL TEARS OPTH SOLN 15 ML BTL EACH EYE SCH ×3 (08:13→16:26)
[2018-01-16] MEDS: SODIUM CHLORIDE 0.9% FLUSH 10 ML FLUSH IV FLUSH SCH ×2 (08:13→21:33)
[2018-01-16] MEDS: ASPIRIN 81 MG CHEW TAB CHEW SCH (08:13)
[2018-01-16] MEDS: FUROSEMIDE 20 MG/2 ML VIAL IV PUSH SCH (08:13)
[2018-01-16] MEDS: METOPROLOL TARTRATE 25 MG TAB PO SCH ×2 (08:14→21:32)
--- NOTE | 2018-01-16 11:47 | PD.CARD.PN ---
Subjective Subjective Remarks No events overnight Post-cath, mild CAD Feels well overall Objective Medications Current Medications Medications (Trade) Dose Ordered Sig/Shyla Route Start Time Stop Time Status Last Admin Sodium Chloride 1,000 ml @ 30 mls/hr Q24H IV 01/11/18 13:46 01/14/18 21:11 (NS Flush) 2 ml UNSCH PRN IV FLUSH 01/11/18 14:00 (NS Flush) 2 ml BID IV FLUSH 01/11/18 21:00 01/16/18 08:13 (Tylenol) 650 mg Q6H PRN PO 01/11/18 14:00 ([place] 5-325 Mg) 1 tab Q4H PRN PO 01/11/18 14:00 01/16/18 08:13 (Morphine Inj) 2 mg Q2H PRN IV PUSH 01/11/18 14:15 01/15/18 04:21 (Tears Naturale Opth Soln) 1 drop TID EACH EYE 01/11/18 18:00 01/16/18 08:13 (Zofran Inj) 4 mg Q6H PRN IV PUSH 01/11/18 14:00 (Albuterol Neb) 2.5 mg Q2HR NEB PRN INH 01/11/18 14:00 Miscellaneous Information 1 Q361D XX 01/11/18 14:00 01/11/18 14:00 (Chlorhexidine 2% Cloth) 3 pack Taper DAILY@04 TOP 01/12/18 04:00 01/08/19 03:59 01/13/18 04:00 (Chlorhexidine 2% Cloth) 3 pack UNSCH PRN TOP 01/11/18 14:00 (Porsha-Colace) 1 tab BID PO 01/11/18 21:00 01/16/18 08:12 (Milk Of Magnesia Liq) 30 ml Q12H PRN PO 01/11/18 14:00 (Senokot) 17.2 mg Q12H PRN PO 01/11/18 14:00 (Dulcolax Supp) 10 mg DAILY PRN RECTAL 01/11/18 14:00 (Lactulose Liq) 30 ml DAILY PRN PO 01/11/18 14:00 (Oscal) 1,500 mg DAILY PO 01/12/18 09:00 4/7/18 08:12 (Protonix) 40 mg DAILY PO 01/12/18 09:00 01/16/18 08:12 (Aspirin Chew) 81 mg DAILY CHEW 01/12/18 11:00 01/15/18 10:52 (Lopressor) 12.5 mg Q12HR PO 01/12/18 12:45 01/16/18 08:14 Heparin Sodium/ Dextrose 250 ml @ 11 mls/hr TITRATE PRN IV 01/13/18 16:00 01/13/18 15:55 (Synthroid) 25 mcg DAILY@0600 PO 01/15/18 06:00 01/16/18 05:59 Albumin Human 100 ml @ 60 mls/hr Q8H IV 01/15/18 13:00 01/16/18 06:00 Sodium Chloride 1,000 ml @ 84 mls/hr [id number] IV 01/15/18 13:00 01/15/18 21:16 (Lasix Inj) 20 mg DAILY IV PUSH 01/16/18 09:00 01/16/18 08:13 (Coumadin) 3 mg DAILY@16 PO 01/15/18 16:00 01/15/18 16:46 Vital Signs / I&O Vital Signs Date Time Temp Pulse Resp B/P (MAP) Pulse Ox O2 Delivery O2 Flow Rate FiO2 01/16/18 10:01 73 01/16/18 09:35 95 21 01/16/18 09:09 16 01/16/18 09:07 75 01/16/18 08:30 97.4 81 16 133/96 (108) 95 01/16/18 08:30 78 01/16/18 06:00 80 01/16/18 05:00 78 01/16/18 04:00 78 01/16/18 03:25 80 16 121/93 (102) 95 01/16/18 03:00 79 01/16/18 02:00 84 01/16/18 01:00 84 01/16/18 00:00 84 01/15/18 23:00 82 16 123/93 (103) 95 01/15/18 23:00 83 01/15/18 22:00 84 01/15/18 21:00 88 01/15/18 20:00 88 01/15/18 19:00 98.0 88 16 118/86 (97) 97 01/15/18 19:00 88 01/15/18 18:00 86 01/15/18 17:00 86 01/15/18 16:00 86 01/15/18 15:00 86 01/15/18 15:00 98.6 87 20 106/79 (88) 96 01/15/18 14:00 86 01/15/18 13:00 86 01/15/18 12:00 84 I/O 01/15/18 01/15/18 01/15/18 01/16/18 01/16/18 01/16/18 07:00 15:00 23:00 07:00 15:00 23:00 Intake Total 240 ml 240 ml 240 ml Output Total 50 ml 100 ml 100 ml Balance 190 ml 140 ml 140 ml Intake Oral 240 ml 240 ml 240 ml Output Urine Total 50 ml 100 ml 100 ml # Voids 1 # Bowel Movements 1 Physical Exam GENERAL: NAD, AAOx3 SKIN: Warm and dry. HEAD: Atraumatic. Normocephalic. EYES: Pupils equal and round. No scleral icterus. No injection or drainage. ENT: No nasal bleeding or discharge. Mucous membranes pink and moist. NECK: Trachea midline. No JVD. CARDIOVASCULAR: Regular rate and rhythm. RESPIRATORY: Decreased breath sounds GASTROINTESTINAL: Abdomen soft, non-tender, nondistended. Hepatic and splenic margins not palpable. MUSCULOSKELETAL: Extremities without clubbing, cyanosis, or edema. No obvious deformities. NEUROLOGICAL: Awake and alert. No obvious cranial nerve deficits. Motor grossly within normal limits. Five out of 5 muscle strength in the arms and legs. Normal speech. PSYCHIATRIC: Appropriate mood and affect; insight and judgment normal. Laboratory Laboratory Tests Test 01/16/18 05:38 White Blood Count 6.7 TH/MM3 Red Blood Count 3.39 MIL/MM3 Hemoglobin 9.1 GM/DL Hematocrit 28.1 % Mean Corpuscular Volume 82.8 FL Mean Corpuscular Hemoglobin 26.8 PG Mean Corpuscular Hemoglobin Concent 32.3 % Red Cell Distribution Width 20.6 % Platelet Count 255 TH/MM3 Mean Platelet Volume 8.8 FL Neutrophils (%) (Auto) 90.6 % Lymphocytes (%) (Auto) 3.8 % Monocytes (%) (Auto) 4.8 % Eosinophils (%) (Auto) 0.2 % Basophils (%) (Auto) 0.6 % Neutrophils # (Auto) 6.0 TH/MM3 Lymphocytes # (Auto) 0.3 TH/MM3 Monocytes # (Auto) 0.3 TH/MM3 Eosinophils # (Auto) 0.0 TH/MM3 Basophils # (Auto) 0.0 TH/MM3 CBC Comment DIFF FINAL Differential Comment Prothrombin Time 16.1 SEC Prothromb Time International Ratio 1.6 RATIO Blood Urea Nitrogen 15 MG/DL Creatinine 1.43 MG/DL Random Glucose 69 MG/DL Total Protein 5.9 GM/DL Albumin 2.7 GM/DL Calcium Level 8.4 MG/DL Phosphorus Level 3.4 MG/DL Magnesium Level 1.9 MG/DL Alkaline Phosphatase 198 U/L Aspartate Amino Transf (AST/SGOT) 23 U/L Alanine Aminotransferase (ALT/SGPT) LESS THAN 6 U/L Total Bilirubin 0.8 MG/DL Sodium Level 136 MEQ/L Potassium Level 4.7 MEQ/L Chloride Level 108 MEQ/L Carbon Dioxide Level 14.2 MEQ/L Anion Gap 14 MEQ/L Estimat Glomerular Filtration Rate 64 ML/MIN Assessment and Plan Problem List: (1) Diffuse large B cell lymphoma ICD Codes: C83.30 - Diffuse large B-cell lymphoma, unspecified site (2) Cardiomyopathy ICD Codes: I42.9 - Cardiomyopathy, unspecified (3) Pleural effusion ICD Codes: J90 - Pleural effusion, not elsewhere classified Status: Resolved (4) Acute respiratory failure with hypoxia ICD Codes: J96.01 - Acute respiratory failure with hypoxia Status: Acute (5) Elevated troponin ICD Codes: R74.8 - Abnormal levels of other serum enzymes Assessment and Plan 1) Bilateral thoracentesis Malignant effusions 2) Aggressive lymphoma per Heme/Onc 3) NSTEMI/Wide complex tachycardia No further arrhythmias Cardiac cath showing no significant CAD BB therapy ASA 4) Hx of PE Coumadin resumed 5) Left atrial mass Cardiac MRI showing a large mass impinging on the left atrium Can definitely cause arrhythmias, but more likely atrial arrhythmias 6) No further cardiovascular workup necessary Terry Taveras DO Jan 16, 2018 11:47
[2018-01-16] MEDS: SODIUM CHLOR 0.9% 1000 ML INJ 1,000 ML IV SCH ×2 (12:50→12:52)
--- NOTE | 2018-01-16 15:54 | HHI.PR ---
Subjective Remarks This 47-year-old man with recently diagnosed non-Hodgkin's lymphoma, B-cell type , presents to the emergency department with worsening shortness of breath over the past 2 days. Particularly troublesome as his room air oxygen saturation of 80%. CAT scan of the chest shows hypovolemia and large bilateral pleural effusions. Aside from a fading parenchymal pneumonitis the lung canas are clear. There is a small amount of pericardial fluid is well. Cardiac echo is pending at this point but we know from history that he has a markedly depressed ventricular function. He is an Entresto has been held because of hypotension. On physical exam the gentleman appears markedly dehydrated but his B natriuretic peptide is also markedly hydrated. My impression is that we will just have to gingerly hydrate this gentleman and follow his pulmonary exam. There is no evidence of sepsis at this time. 01/12/18: Patient lying in bed slightly tachypneic. Chest x-ray shows at least moderate sized bilateral effusion. 2D echo yesterday showed probable atrial mass. Cardiac MRI ordered. Few nonsustained episodes of wide-complex tachycardia overnight. Troponin elevated, peaked at 3.6. Cardiology consulted. Start aspirin, will not tolerate beta blockers or MARLO inhibitors at this time 01/13: Subjectively much improved, respiratory duggan. Had thoracentesis and almost 1.5 L removed from the right side. Cardiac MRI pending. INR is 1.5. Will drain Left side today. Effusion appears malignant secondary to lymphoma, predominantly lymphocytes. On discussion with Dr. Connelly it appears patient has very aggressive nonresponding lymphoma 4-5 FOR CARDIAC CATH TOMORROW NO SOB NO CHEST PAIN MOVING ALL EXTREMITIES LYMPHOMA VERY AGGRESSIVE 4-6 HAD CARDIAC CATH NO INTERVENTIONS DONE POOR APPETITE DW RN AND PT AND CM AGGRESSIVE LYMPHOMA WILL GIVE ALBUMIN FLUIDS AND LASIX 4- RELOAD COUMADIN GOAL 2.0 TO 3.0 INR IS 1.6- WILL GIVE 5MG TODAY CONTINUE LASIX AND FLUIDS AND ALBUMIN [facility] RN AND PT AND CAM HOPEFULLY HOME TOMORROW AM LABS Objective Vitals Vital Signs Date Time Temp Pulse Resp B/P (MAP) Pulse Ox O2 Delivery O2 Flow Rate FiO2 01/16/18 15:10 80 01/16/18 15:10 97.5 79 18 134/98 (110) 93 01/16/18 14:02 80 01/16/18 13:17 77 01/16/18 12:00 77 01/16/18 11:20 97.6 72 16 121/91 (101) 97 01/16/18 11:20 75 01/16/18 10:01 73 01/16/18 09:35 95 21 01/16/18 09:09 16 01/16/18 09:07 75 01/16/18 08:30 97.4 81 16 133/96 (108) 95 01/16/18 08:30 78 01/16/18 06:00 80 01/16/18 05:00 78 01/16/18 04:00 78 01/16/18 03:25 80 16 121/93 (102) 95 01/16/18 03:00 79 01/16/18 02:00 84 01/16/18 01:00 84 01/16/18 00:00 84 01/15/18 23:00 82 16 123/93 (103) 95 01/15/18 23:00 83 01/15/18 22:00 84 01/15/18 21:00 88 01/15/18 20:00 88 01/15/18 19:00 98.0 88 16 118/86 (97) 97 01/15/18 19:00 88 01/15/18 18:00 86 01/15/18 17:00 86 01/15/18 16:00 86 I/O 01/15/18 01/15/18 01/15/18 01/16/18 01/16/18 01/16/18 07:00 15:00 23:00 07:00 15:00 23:00 Intake Total 240 ml 240 ml 240 ml Output Total 50 ml 100 ml 100 ml Balance 190 ml 140 ml 140 ml Intake Oral 240 ml 240 ml 240 ml Output Urine Total 50 ml 100 ml 100 ml # Voids 1 # Bowel Movements 1 Result Diagram: 01/16/18 0538 01/16/18 0538 Other Results Laboratory Tests Test 01/16/18 05:38 White Blood Count 6.7 TH/MM3 Red Blood Count 3.39 MIL/MM3 Hemoglobin 9.1 GM/DL Hematocrit 28.1 % Mean Corpuscular Volume 82.8 FL Mean Corpuscular Hemoglobin 26.8 PG Mean Corpuscular Hemoglobin Concent 32.3 % Red Cell Distribution Width 20.6 % Platelet Count 255 TH/MM3 Mean Platelet Volume 8.8 FL Neutrophils (%) (Auto) 90.6 % Lymphocytes (%) (Auto) 3.8 % Monocytes (%) (Auto) 4.8 % Eosinophils (%) (Auto) 0.2 % Basophils (%) (Auto) 0.6 % Neutrophils # (Auto) 6.0 TH/MM3 Lymphocytes # (Auto) 0.3 TH/MM3 Monocytes # (Auto) 0.3 TH/MM3 Eosinophils # (Auto) 0.0 TH/MM3 Basophils # (Auto) 0.0 TH/MM3 CBC Comment DIFF FINAL Differential Comment Prothrombin Time 16.1 SEC Prothromb Time International Ratio 1.6 RATIO Blood Urea Nitrogen 15 MG/DL Creatinine 1.43 MG/DL Random Glucose 69 MG/DL Total Protein 5.9 GM/DL Albumin 2.7 GM/DL Calcium Level 8.4 MG/DL Phosphorus Level 3.4 MG/DL Magnesium Level 1.9 MG/DL Alkaline Phosphatase 198 U/L Aspartate Amino Transf (AST/SGOT) 23 U/L Alanine Aminotransferase (ALT/SGPT) LESS THAN 6 U/L Total Bilirubin 0.8 MG/DL Sodium Level 136 MEQ/L Potassium Level 4.7 MEQ/L Chloride Level 108 MEQ/L Carbon Dioxide Level 14.2 MEQ/L Anion Gap 14 MEQ/L Estimat Glomerular Filtration Rate 64 ML/MIN Imaging Last Impressions Chest X-Ray 01/14/18 0600 Signed Impressions: Service Date/Time: January 04:49 - CONCLUSION: No significant change Tacos Garcia MD Cardiac MRI 01/13/18 0000 Signed Impressions: Service Date/Time: Saturday, January 13, 2018 10:23 - CONCLUSION: 1. 5.3 x 4.6 x 7.8 cm mediastinal mass lesion to the right and posterior of the left atrium. Mass impinges on the atrial lumen and actually appears to be a small tongue of tissue measuring 1.7 cm in diameter which protrudes into the atrial lumen. 2. Hypokinesis most prominent in the inferior wall and apex 3. Bilateral pleural effusions, right greater than left. River Quintero MD Lung Scan-V Nuclear Medicine 01/11/18 0000 Signed Impressions: Service Date/Time: Thursday, January 11, 2018 11:00 - CONCLUSION: 1. The examination is negative for pulmonary embolus. Adama Briceño MD Chest CT 01/11/18 0000 Signed Impressions: Service Date/Time: Thursday, January 11, 2018 10:21 - CONCLUSION: 1. Bilateral pleural effusions, slightly larger than on prior CT 12/30/17. 2. 5 cm mass in the posterior mediastinum, similar to prior CT. The mediastinal structures are suboptimally evaluated due to the absence of mediastinal fat and lack of intravenous contrast. 3. Persistent right lower lobe consolidation. Bryon Evans MD Objective Remarks GENERAL: Awake alert and oriented 3 talkative and cooperative very thin appearing -[place] male SKIN: Warm and dry. HEAD: Atraumatic. Normocephalic. EYES: Pupils equal and round. No scleral icterus. No injection or drainage. Extraocular muscles intact ENT: No nasal bleeding or discharge. Mucous membranes pink and moist. Tongue is midline NECK: Trachea midline. No JVD. Supple CARDIOVASCULAR: IRRegular rate and rhythm. S1-S2 no S3 or S4 RESPIRATORY: No accessory muscle use. Clear to auscultation. Breath sounds equal bilaterally. GASTROINTESTINAL: Abdomen soft, non-tender, nondistended. Hepatic and splenic margins not palpable. MUSCULOSKELETAL: Extremities without clubbing, cyanosis, or edema. No obvious deformities. NEUROLOGICAL: Awake and alert. No obvious cranial nerve deficits. Motor grossly within normal limits. 4 out of 5 muscle strength in the arms and legs. Normal speech. PSYCHIATRIC: Appropriate mood and affect; insight and judgment normal. Procedures BL THORACENTESIS Procedure: US guided Thoracentesis Indication: Large right pleural effusion A time-out was completed verifying correct patient, procedure, site, positioning , and special equipment if applicable. The patients right side was prepped and draped in a sterile manner after the appropriate infiltration level was confirmed and marked by ultrasound. 1% lidocaine was used anesthetize the surrounding skin. A 10-blade scalpel used to make the incision. The thoracentesis Angio cath was then introduced without difficulty and needle was removed. Catheter was connected to Vacutainer bottle and 1400 ml of slightly cloudy light yellow fluid was removed. A post-procedure chest x-ray was ordered and the fluid will be sent for several studies. Estimated Blood Loss: <1 ml The patient tolerated the procedure well and there were no immediate complications. Leona Balderrama MD Jan 12, 2018 11:51 Procedure: US guided Left Thoracentesis Indication: Large left pleural effusion, respiratory insufficiency A time-out was completed verifying correct patient, procedure, site, positioning , and special equipment if applicable. The patients left side was prepped and draped in a sterile manner after the appropriate infiltration level was confirmed and marked by ultrasound. 1% lidocaine was used anesthetize the surrounding skin. A 10-blade scalpel used to make the incision. The thoracentesis Angio cath was then introduced without difficulty and needle was removed. Catheter was connected to Vacutainer bottle and 1300 ml of cloudy light yellow fluid was removed. A post-procedure chest x-ray was ordered and the fluid will be sent for several studies. Estimated Blood Loss: <1 ml The patient tolerated the procedure well and there were no immediate complications. Leona Balderrama MD Jan 13, 2018 09:06 Medications and IVs Current Medications Sodium Chloride (NS Flush) 2 ml UNSCH PRN IVF FLUSH AFTER USING IV ACCESS; Start 01/11/18 at 08:30; Stop 01/11/18 at 13:55; Status DC Sodium Chloride 500 ml @ 500 mls/hr ONCE ONCE IV Last administered on at 08:53; Start 01/11/18 at 08:30; Stop 01/11/18 at 09:29; Status DC Sodium Chloride 500 ml @ 500 mls/hr BOLUS ONCE IV Last administered on at 09:45; Start 01/11/18 at 09:45; Stop 01/11/18 at 10:44; Status DC Sodium Chloride 1,000 ml @ 999 mls/hr BOLUS ONCE IV ; Start 01/11/18 at 13:30; Stop 01/11/18 at 13:32; Status DC Albumin Human 100 ml @ 60 mls/hr ONCE ONCE IV Last administered on 01/11/18at 13:48; Start 01/11/18 at 13:30; Stop 01/11/18 at 15:09; Status DC Sodium Chloride 500 ml @ 500 mls/hr BOLUS ONCE IV Last administered on at 15:00; Start 01/11/18 at 13:45; Stop 01/11/18 at 14:44; Status DC Sodium Chloride 1,000 ml @ 30 mls/hr Q24H IV Last administered on 01/14/18at 21: 11; Start 01/11/18 at 13:46 Sodium Chloride (NS Flush) 2 ml UNSCH PRN IV FLUSH FLUSH AFTER USING IV ACCESS ; Start 01/11/18 at 14:00 Sodium Chloride (NS Flush) 2 ml BID IV FLUSH Last administered on 01/16/18at 08: 13; Start 01/11/18 at 21:00 Acetaminophen (Tylenol) 650 mg Q6H PRN PO FEVER >101F; Start 01/11/18 at 14:00 Acetaminophen/ Hydrocodone Bitart (Rhodes 5-325 Mg) 1 tab Q4H PRN PO PAIN SCALE 1 TO 5 Last administered on 01/16/18 08:13; Start 01/11/18 at 14:00 Morphine Sulfate (Morphine Inj) 2 mg Q2H PRN IV PUSH PAIN SCALE 6 TO 10 Last administered on 01/15/18 04:21; Start 01/11/18 at 14:15 Pantoprazole Sodium (Protonix) 40 mg DAILY PO ; Start 01/12/18 at 09:00; Status UNV Artificial Tears (Tears Naturale Opth Soln) 1 drop TID EACH EYE Last administered on 01/16/18 08:13; Start 01/11/18 at 18:00 Ondansetron HCl (Zofran Inj) 4 mg Q6H PRN IV PUSH NAUSEA OR VOMITING; Start 01/11/18 at 14:00 Albuterol/ Ipratropium (Duoneb Neb) 1 ampule Q6HR NEB INH Last administered on 01/15/18 09:53; Start 01/11/18 at 16:00; Stop 01/15/18 at 15:59; Status DC Albuterol Sulfate (Albuterol Neb) 2.5 mg Q2HR NEB PRN INH SOB/WHEEZING; Start 01/11/18 at 14:00 Miscellaneous Information 1 [id number] XX Last administered on 01/11/18 14:00; Start 01/11/18 at 14:00 Chlorhexidine Gluconate (Chlorhexidine 2% Cloth) 3 pack Taper DAILY@04 TOP Last administered on 01/13/18 04:00; Start 01/12/18 at 04:00; Stop 01/08/19 at 03 :59 Chlorhexidine Gluconate (Chlorhexidine 2% Cloth) 3 pack UNSCH PRN TOP HYGIENIC CARE; Start 01/11/18 at 14:00 Senna/Docusate Sodium (Porsha-Colace) 1 tab BID PO Last administered on 01/16/18at 08:12; Start 01/11/18 at 21:00 Magnesium Hydroxide (Milk Of Magnesia Liq) 30 ml Q12H PRN PO Mild constipation ; Start 01/11/18 at 14:00 Sennosides (Senokot) 17.2 mg Q12H PRN PO Moderate constipation; Start 01/11/18 at 14:00 Bisacodyl (Dulcolax Supp) 10 mg DAILY PRN RECTAL SEVERE CONSITIPATION; Start at 14:00 Lactulose (Lactulose Liq) 30 ml DAILY PRN PO SEVERE CONSITIPATION; Start at 14:00 Calcium Carbonate (Oscal) 1,500 mg DAILY PO Last administered on 01/16/18at 08:12 ; Start 01/12/18 at 09:00 Pantoprazole Sodium (Protonix) 40 mg DAILY PO Last administered on 01/16/18at 08: 12; Start 01/12/18 at 09:00 Phytonadione 10 mg/Sodium Chloride 51 ml @ 102 mls/hr ONCE ONCE IV Last administered on 01/12/18at 07:36; Start 01/12/18 at 07:15; Stop 01/12/18 at 07:44; Status DC Aspirin (Aspirin Chew) 81 mg DAILY CHEW Last administered on 01/15/18at 10:52; Start 01/12/18 at 11:00 Metoprolol Tartrate (Lopressor) 12.5 mg Q12HR PO Last administered on 01/16/18at 08:14; Start 01/12/18 at 12:45 Magnesium Sulfate/ Dextrose 100 ml @ 100 mls/hr Q1H IV Last administered on 01/12/18at 21:55; Start 01/12/18 at 13:00; Stop 01/12/18 at 14:59; Status DC Pharmacy Profile Note 0 ml @ 0 mls/hr UNSCH OTHER ; Start 01/13/18 at 09:15; Stop 01/13/18 at 14:23; Status DC Potassium Bicarb/ Potassium Chloride (K-Lyte Cl Eff) 25 meq ONCE ONCE PO Last administered on 4/4/18at 11:55; Start 01/13/18 at 11:00; Stop 01/13/18 at 11: 04; Status DC Magnesium Sulfate/ Dextrose 100 ml @ 100 mls/hr ONCE ONCE IV Last administered on 01/13/18 11:55; Start 01/13/18 at 11:00; Stop 01/13/18 at 11:59; Status DC Gadodiamide (Omniscan Pf Inj) 20 ml STK-MED ONCE IVCONTRAST Last administered on 01/13/18 11:37; Start 01/13/18 at 11:37; Stop 01/13/18 at 11:38; Status DC Heparin Sodium/ Dextrose 250 ml @ 11 mls/hr TITRATE PRN IV Coagulation Management Last administered on 01/13/18 15:55; Start 01/13/18 at 16:00 Levothyroxine Sodium (Synthroid) 25 mcg DAILY@0600 PO Last administered on 05:59; Start 01/15/18 at 06:00 Heparin Sodium/ Sodium Chloride 2,000 ml @ As Directed STK-MED ONCE IV FLUSH ; Start 01/15/18 at 08:31; Stop 01/15/18 at 08:32; Status DC Verapamil HCl (Isoptin Inj) 5 mg STK-MED ONCE .ROUTE Last administered on 09:08; Start 01/15/18 at 08:33; Stop 01/15/18 at 08:34; Status DC Heparin Sodium (Porcine) (Heparin Inj) 10,000 units STK-MED ONCE .ROUTE Last administered on 01/15/18 09:08; Start 01/15/18 at 08:33; Stop 01/15/18 at 08:34; Status DC Lidocaine HCl (Xylocaine-Mpf 1% Inj) 30 ml STK-MED ONCE .ROUTE Last administered on 01/15/18 08:46; Start 01/15/18 at 08:46; Stop 01/15/18 at 08:47; Status DC Fentanyl Citrate (fentaNYL INJ) 100 mcg STK-MED ONCE .ROUTE Last administered on 01/15/18 09:03; Start 01/15/18 at 09:02; Stop 01/15/18 at 09:03; Status DC Iohexol (OMNIPAQUE 350 INJ (Middle Card Tender)) 100 ml STK-MED ONCE OTHER ; Start at 12:08; Stop 01/15/18 at 12:09; Status DC Albumin Human 100 ml @ 60 mls/hr Q8H IV Last administered on 01/16/18at 13:01; Start 01/15/18 at 13:00 Sodium Chloride 1,000 ml @ 84 mls/hr [id number] IV Last administered on 01/16/18at 12:50; Start 01/15/18 at 13:00 Furosemide (Lasix Inj) 20 mg DAILY IV PUSH Last administered on 01/16/18at 08:13 ; Start 01/16/18 at 09:00 Warfarin Sodium (Coumadin) 3 mg DAILY@16 PO Last administered on 01/15/18at 16:46 ; Start 01/15/18 at 16:00; Stop 01/16/18 at 15:51; Status DC Warfarin Sodium (Coumadin) 5 mg DAILY@16 PO ; Start 01/16/18 at 16:00; Status UNV A/P Assessment and Plan NSTEMI Nonsustained ventricular tachycardia Respiratory insufficiency Dehydration, oliguria Hypotension 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 Taveras, will probably need ischemic workup CATH TOMORROW -- SP CATH - STABLE -Keep potassium more than 4, magnesium more than 2. 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 s/p 2 units of FFP and 10 mg IV vitamin K 01/12 -Aspirin 81 mg daily. At this time patient will not tolerate MARLO inhibitors or beta-blockers -Gentle hydration with isotonic crystalloid. -Follow renal function and natruretic peptide closely -Pepcid for GI ulcer prophylaxis -Patient is fully anticoagulated, holding SCDs, as the skin will macerate until hydrated -Follow-up labs chest x-ray in a.m. PCM WILL GIVE ALBUMIN AND FLUIDS AND LASIX RELOAD COUMADIN IF THERAPEUTIC HOME TOMORROW AND FOLLOW UP WITH ONCOLOGY REGARDING CHEMO Discharge Planning TRANSFER TO ONCOLOGY SIDE Kirk Long DO Jan 16, 2018 15:54
[2018-01-16] MEDS ORDERED: WARFARIN SOD 5 MG TAB PO SCH (16:00)
[2018-01-17] VITALS (11 sets, daily range): BP systolic 130–140; BP diastolic 77–100; PULSE 74–86; RESP 16–20; TEMP 96.4–98.2; O2SAT 95–97
[2018-01-17] MEDS: CHLORHEXIDINE GLUCONATE 2 % 1 PACK (2 CLOTHS) TOP SCH (04:00)
[2018-01-17] MEDS: SODIUM CHLOR 0.9% 1000 ML INJ 1,000 ML IV SCH (04:55)
[2018-01-17] MEDS: ALBUMIN 25% INJ 100 ML IV SCH (04:55)
[2018-01-17] MEDS: LEVOTHYROXINE SODIUM 25 MCG TAB PO SCH (04:56)
[2018-01-17] MEDS: ACETAMINOPHEN/HYDROcodone 325 MG/5 MG TAB PO PRN ×2 (05:50→09:08)
[2018-01-17 06:14] LABS: AUTOMATED NEUTROPHIL # 5.3 TH/MM3 (1.8-7.7); BASOPHIL % 0.2 % (0.0-2.0); EOSINOPHIL % 0.3 % (0.0-4.0); HEMATOCRIT 28.3 % (39.0-51.0); HEMOGLOBIN 9.1 GM/DL (13.0-17.0); LYMPH % 5.5 % (9.0-44.0); LYMPHOCYTE # 0.3 TH/MM3 (1.0-4.8); MEAN CELL VOLUME 82.3 FL (80.0-100.0); MEAN CORPUSCULAR HEMOGLOBIN 26.5 PG (27.0-34.0); MEAN CORPUSCULAR HGB CONC 32.2 % (32.0-36.0); MEAN PLATELET VOLUME 8.2 FL (7.0-11.0); MONOCYTE # 0.3 TH/MM3 (0-0.9); PLATELET COUNT 256 TH/MM3 (150-450); RED BLOOD COUNT 3.44 MIL/MM3 (4.50-5.90); RED CELL DISTRIBUTION WIDTH 20.8 % (11.6-17.2); WHITE BLOOD COUNT 5.9 TH/MM3 (4.0-11.0)
[2018-01-17 06:20] LABS: PROTHROMBIN TIME - PATIENT 20.5 SEC (9.8-11.6)
[2018-01-17 07:23] LABS: ALBUMIN 3.1 GM/DL (3.4-5.0); ALKALINE PHOSPHATASE 138 U/L (45-117); ALT (GPT) 6 U/L (12-78); AST (GOT) 25 U/L (15-37); BICARBONATE 15.6 MEQ/L (21.0-32.0); BLOOD UREA NITROGEN 18 MG/DL (7-18); CALCIUM 8.4 MG/DL (8.5-10.1); CHLORIDE 109 MEQ/L (98-107); CREATININE 1.59 MG/DL (0.60-1.30); GLOMERULAR FILTRATION RATE 56 ML/MIN (>89); MAGNESIUM 1.7 MG/DL (1.5-2.5); PHOSPHORUS 3.8 MG/DL (2.5-4.9); SODIUM (NA) 139 MEQ/L (136-145); TOTAL BILIRUBIN ADULT 0.8 MG/DL (0.2-1.0); TOTAL PROTEIN 5.7 GM/DL (6.4-8.2)
[2018-01-17 07:29] LABS: GLUCOSE,RANDOM 45 MG/DL (74-106)
[2018-01-17] MEDS: SODIUM CHLORIDE 0.9% FLUSH 10 ML FLUSH IV FLUSH SCH (09:00)
[2018-01-17] MEDS: ARTIFICIAL TEARS OPTH SOLN 15 ML BTL EACH EYE SCH (09:00)
[2018-01-17] MEDS: PANTOPRAZOLE SOD 40 MG DELAYED RELEASE TAB PO SCH (09:07)
[2018-01-17] MEDS: DOCUSATE SODIUM 50 MG/SENNA 8.6 MG TAB PO SCH (09:08)
[2018-01-17] MEDS: METOPROLOL TARTRATE 25 MG TAB PO SCH (09:08)
[2018-01-17] MEDS: CALCIUM CARBONATE 1.25 GM (CA 500 MG) TAB PO SCH (09:08)
[2018-01-17] MEDS: FUROSEMIDE 20 MG/2 ML VIAL IV PUSH SCH (09:09)
[2018-01-17] MEDS: ASPIRIN 81 MG CHEW TAB CHEW SCH (09:09)
--- NOTE | 2018-01-17 10:33 | HHI.PR ---
Subjective Remarks This 47-year-old man with recently diagnosed non-Hodgkin's lymphoma, B-cell type , presents to the emergency department with worsening shortness of breath over the past 2 days. Particularly troublesome as his room air oxygen saturation of 80%. CAT scan of the chest shows hypovolemia and large bilateral pleural effusions. Aside from a fading parenchymal pneumonitis the lung canas are clear. There is a small amount of pericardial fluid is well. Cardiac echo is pending at this point but we know from history that he has a markedly depressed ventricular function. He is an Entresto has been held because of hypotension. On physical exam the gentleman appears markedly dehydrated but his B natriuretic peptide is also markedly hydrated. My impression is that we will just have to gingerly hydrate this gentleman and follow his pulmonary exam. There is no evidence of sepsis at this time. 01/12/18: Patient lying in bed slightly tachypneic. Chest x-ray shows at least moderate sized bilateral effusion. 2D echo yesterday showed probable atrial mass. Cardiac MRI ordered. Few nonsustained episodes of wide-complex tachycardia overnight. Troponin elevated, peaked at 3.6. Cardiology consulted. Start aspirin, will not tolerate beta blockers or MARLO inhibitors at this time 01/13: Subjectively much improved, respiratory duggan. Had thoracentesis and almost 1.5 L removed from the right side. Cardiac MRI pending. INR is 1.5. Will drain Left side today. Effusion appears malignant secondary to lymphoma, predominantly lymphocytes. On discussion with Dr. Connelly it appears patient has very aggressive nonresponding lymphoma 4-5 FOR CARDIAC CATH TOMORROW NO SOB NO CHEST PAIN MOVING ALL EXTREMITIES LYMPHOMA VERY AGGRESSIVE 4-6 HAD CARDIAC CATH NO INTERVENTIONS DONE POOR APPETITE DW RN AND PT AND CM AGGRESSIVE LYMPHOMA WILL GIVE ALBUMIN FLUIDS AND LASIX - RELOAD COUMADIN GOAL 2.0 TO 3.0 INR IS 1.6- WILL GIVE 5MG TODAY CONTINUE LASIX AND FLUIDS AND ALBUMIN [facility] RN AND PT AND CAM HOPEFULLY HOME TOMORROW AM LABS 01-17 INR IS 2.0 PATIENT CAN GO HOME TODAY NOT EATING MUCH NEEDS FOLLOW UP WITH ONCOLOGY DC TO HOME TODAY Objective Vitals Vital Signs Date Time Temp Pulse Resp B/P (MAP) Pulse Ox O2 Delivery O2 Flow Rate FiO2 01/17/18 08:00 98.2 86 16 140/90 (107) 97 01/17/18 06:00 82 01/17/18 05:00 84 01/17/18 04:48 97.6 82 20 133/100 (111) 96 01/17/18 04:00 81 01/17/18 03:00 80 01/17/18 02:00 74 01/17/18 01:00 74 01/17/18 00:03 96.4 78 130/77 (94) 95 01/17/18 00:00 76 01/16/18 23:00 76 01/16/18 22:00 84 01/16/18 21:00 84 01/16/18 20:00 79 01/16/18 20:00 97.8 84 20 133/95 (108) 95 01/16/18 19:00 80 01/16/18 18:14 79 01/16/18 16:21 84 01/16/18 15:10 80 01/16/18 15:10 97.5 79 18 134/98 (110) 93 01/16/18 14:02 80 01/16/18 13:17 77 01/16/18 12:00 77 01/16/18 11:20 97.6 72 16 121/91 (101) 97 01/16/18 11:20 75 I/O 01/16/18 01/16/18 01/16/18 01/17/18 01/17/18 01/17/18 07:00 15:00 23:00 07:00 15:00 23:00 Intake Total 240 ml 100 ml 100 ml Output Total 100 ml Balance 140 ml 100 ml 100 ml Intake Oral 240 ml IV Total 100 ml 100 ml Output Urine Total 100 ml # Voids 1 # Bowel Movements 1 Result Diagram: 01/17/18 0500 01/17/18 0500 Other Results Laboratory Tests Test 01/14/18 12:21 01/15/18 04:20 01/16/18 05:38 01/17/18 05:00 Activated Partial Thromboplast Time 49.2 SEC 49.7 SEC White Blood Count 5.6 TH/MM3 6.7 TH/MM3 5.9 TH/MM3 Red Blood Count 3.32 MIL/MM3 3.39 MIL/MM3 3.44 MIL/MM3 Hemoglobin 8.9 GM/DL 9.1 GM/DL 9.1 GM/DL Hematocrit 26.8 % 28.1 % 28.3 % Mean Corpuscular Volume 80.7 FL 82.8 FL 82.3 FL Mean Corpuscular Hemoglobin 26.9 PG 26.8 PG 26.5 PG Mean Corpuscular Hemoglobin Concent 33.4 % 32.3 % 32.2 % Red Cell Distribution Width 19.9 % 20.6 % 20.8 % Platelet Count 263 TH/MM3 255 TH/MM3 256 TH/MM3 Mean Platelet Volume 8.1 FL 8.8 FL 8.2 FL Neutrophils (%) (Auto) 88.6 % 90.6 % 89.0 % Lymphocytes (%) (Auto) 4.6 % 3.8 % 5.5 % Monocytes (%) (Auto) 6.1 % 4.8 % 5.0 % Eosinophils (%) (Auto) 0.2 % 0.2 % 0.3 % Basophils (%) (Auto) 0.5 % 0.6 % 0.2 % Neutrophils # (Auto) 5.0 TH/MM3 6.0 TH/MM3 5.3 TH/MM3 Lymphocytes # (Auto) 0.3 TH/MM3 0.3 TH/MM3 0.3 TH/MM3 Monocytes # (Auto) 0.3 TH/MM3 0.3 TH/MM3 0.3 TH/MM3 Eosinophils # (Auto) 0.0 TH/MM3 0.0 TH/MM3 0.0 TH/MM3 Basophils # (Auto) 0.0 TH/MM3 0.0 TH/MM3 0.0 TH/MM3 CBC Comment DIFF FINAL DIFF FINAL DIFF FINAL Differential Comment Prothrombin Time 14.5 SEC 16.1 SEC 20.5 SEC Prothromb Time International Ratio 1.4 RATIO 1.6 RATIO 2.0 RATIO Blood Urea Nitrogen 12 MG/DL 15 MG/DL 18 MG/DL Creatinine 1.34 MG/DL 1.43 MG/DL 1.59 MG/DL Random Glucose 86 MG/DL 69 MG/DL 45 MG/DL Total Protein 5.4 GM/DL 5.9 GM/DL 5.7 GM/DL Albumin 2.0 GM/DL 2.7 GM/DL 3.1 GM/DL Calcium Level 8.0 MG/DL 8.4 MG/DL 8.4 MG/DL Phosphorus Level 2.2 MG/DL 3.4 MG/DL 3.8 MG/DL Magnesium Level 1.8 MG/DL 1.9 MG/DL 1.7 MG/DL Alkaline Phosphatase 105 U/L 198 U/L 138 U/L Aspartate Amino Transf (AST/SGOT) 21 U/L 23 U/L 25 U/L Alanine Aminotransferase (ALT/SGPT) LESS THAN 6 U/L LESS THAN 6 U/L 6 U/L Total Bilirubin 0.5 MG/DL 0.8 MG/DL 0.8 MG/DL Sodium Level 138 MEQ/L 136 MEQ/L 139 MEQ/L Potassium Level 4.1 MEQ/L 4.7 MEQ/L 4.4 MEQ/L Chloride Level 107 MEQ/L 108 MEQ/L 109 MEQ/L Carbon Dioxide Level 19.6 MEQ/L 14.2 MEQ/L 15.6 MEQ/L Anion Gap 11 MEQ/L 14 MEQ/L 14 MEQ/L Estimat Glomerular Filtration Rate 69 ML/MIN 64 ML/MIN 56 ML/MIN Imaging Last Impressions Chest X-Ray 01/14/18 0600 Signed Impressions: Service Date/Time: January 04:49 - CONCLUSION: No significant change Tacos Garcia MD Cardiac MRI 01/13/18 0000 Signed Impressions: Service Date/Time: Saturday, January 13, 2018 10:23 - CONCLUSION: 1. 5.3 x 4.6 x 7.8 cm mediastinal mass lesion to the right and posterior of the left atrium. Mass impinges on the atrial lumen and actually appears to be a small tongue of tissue measuring 1.7 cm in diameter which protrudes into the atrial lumen. 2. Hypokinesis most prominent in the inferior wall and apex 3. Bilateral pleural effusions, right greater than left. River Quintero MD Lung Scan- Nuclear Medicine 01/11/18 0000 Signed Impressions: Service Date/Time: Thursday, January 11, 2018 11:00 - CONCLUSION: 1. The examination is negative for pulmonary embolus. Adama Briceño MD Chest CT 01/11/18 0000 Signed Impressions: Service Date/Time: Thursday, January 11, 2018 10:21 - CONCLUSION: 1. Bilateral pleural effusions, slightly larger than on prior CT 12/30/17. 2. 5 cm mass in the posterior mediastinum, similar to prior CT. The mediastinal structures are suboptimally evaluated due to the absence of mediastinal fat and lack of intravenous contrast. 3. Persistent right lower lobe consolidation. Bryon Evans MD Objective Remarks GENERAL: Awake alert and oriented 3 talkative and cooperative very thin appearing -Finnish male SKIN: Warm and dry. HEAD: Atraumatic. Normocephalic. EYES: Pupils equal and round. No scleral icterus. No injection or drainage. Extraocular muscles intact ENT: No nasal bleeding or discharge. Mucous membranes pink and moist. Tongue is midline NECK: Trachea midline. No JVD. Supple CARDIOVASCULAR: IRRegular rate and rhythm. S1-S2 no S3 or S4 RESPIRATORY: No accessory muscle use. Clear to auscultation. Breath sounds equal bilaterally. GASTROINTESTINAL: Abdomen soft, non-tender, nondistended. Hepatic and splenic margins not palpable. MUSCULOSKELETAL: Extremities without clubbing, cyanosis, or edema. No obvious deformities. NEUROLOGICAL: Awake and alert. No obvious cranial nerve deficits. Motor grossly within normal limits. 4 out of 5 muscle strength in the arms and legs. Normal speech. PSYCHIATRIC: Appropriate mood and affect; insight and judgment normal. Procedures BL THORACENTESIS Procedure: US guided Thoracentesis Indication: Large right pleural effusion A time-out was completed verifying correct patient, procedure, site, positioning , and special equipment if applicable. The patients right side was prepped and draped in a sterile manner after the appropriate infiltration level was confirmed and marked by ultrasound. 1% lidocaine was used anesthetize the surrounding skin. A 10-blade scalpel used to make the incision. The thoracentesis Angio cath was then introduced without difficulty and needle was removed. Catheter was connected to Vacutainer bottle and 1400 ml of slightly cloudy light yellow fluid was removed. A post-procedure chest x-ray was ordered and the fluid will be sent for several studies. Estimated Blood Loss: <1 ml The patient tolerated the procedure well and there were no immediate complications. Leona Balderrama MD Jan 12, 2018 11:51 Procedure: US guided Left Thoracentesis Indication: Large left pleural effusion, respiratory insufficiency A time-out was completed verifying correct patient, procedure, site, positioning , and special equipment if applicable. The patients left side was prepped and draped in a sterile manner after the appropriate infiltration level was confirmed and marked by ultrasound. 1% lidocaine was used anesthetize the surrounding skin. A 10-blade scalpel used to make the incision. The thoracentesis Angio cath was then introduced without difficulty and needle was removed. Catheter was connected to Vacutainer bottle and 1300 ml of cloudy light yellow fluid was removed. A post-procedure chest x-ray was ordered and the fluid will be sent for several studies. Estimated Blood Loss: <1 ml The patient tolerated the procedure well and there were no immediate complications. Leona Balderrama MD Jan 13, 2018 09:06 Medications and IVs Current Medications Sodium Chloride (NS Flush) 2 ml UNSCH PRN IVF FLUSH AFTER USING IV ACCESS; Start 01/11/18 at 08:30; Stop 01/11/18 at 13:55; Status DC Sodium Chloride 500 ml @ 500 mls/hr ONCE ONCE IV Last administered on at 08:53; Start 01/11/18 at 08:30; Stop 01/11/18 at 09:29; Status DC Sodium Chloride 500 ml @ 500 mls/hr BOLUS ONCE IV Last administered on at 09:45; Start 01/11/18 at 09:45; Stop 01/11/18 at 10:44; Status DC Sodium Chloride 1,000 ml @ 999 mls/hr BOLUS ONCE IV ; Start 01/11/18 at 13:30; Stop 01/11/18 at 13:32; Status DC Albumin Human 100 ml @ 60 mls/hr ONCE ONCE IV Last administered on 01/11/18at 13:48; Start 01/11/18 at 13:30; Stop 01/11/18 at 15:09; Status DC Sodium Chloride 500 ml @ 500 mls/hr BOLUS ONCE IV Last administered on at 15:00; Start 01/11/18 at 13:45; Stop 01/11/18 at 14:44; Status DC Sodium Chloride 1,000 ml @ 30 mls/hr Q24H IV Last administered on 01/14/18at 21: 11; Start 01/11/18 at 13:46; Stop 01/17/18 at 09:35; Status DC Sodium Chloride (NS Flush) 2 ml UNSCH PRN IV FLUSH FLUSH AFTER USING IV ACCESS ; Start 01/11/18 at 14:00 Sodium Chloride (NS Flush) 2 ml BID IV FLUSH Last administered on 01/17/18at 09: 00; Start 01/11/18 at 21:00 Acetaminophen (Tylenol) 650 mg Q6H PRN PO FEVER >101F; Start 01/11/18 at 14:00 Acetaminophen/ Hydrocodone Bitart (Ewing 5-325 Mg) 1 tab Q4H PRN PO PAIN SCALE 1 TO 5 Last administered on 01/17/18 09:08; Start 01/11/18 at 14:00 Morphine Sulfate (Morphine Inj) 2 mg Q2H PRN IV PUSH PAIN SCALE 6 TO 10 Last administered on 01/15/18at 04:21; Start 01/11/18 at 14:15 Pantoprazole Sodium (Protonix) 40 mg DAILY PO ; Start 01/12/18 at 09:00; Status UNV Artificial Tears (Tears Naturale Opth Soln) 1 drop TID EACH EYE Last administered on 01/16/18 08:13; Start 01/11/18 at 18:00 Ondansetron HCl (Zofran Inj) 4 mg Q6H PRN IV PUSH NAUSEA OR VOMITING; Start 01/11/18 at 14:00 Albuterol/ Ipratropium (Duoneb Neb) 1 ampule Q6HR NEB INH Last administered on 01/15/18 09:53; Start 01/11/18 at 16:00; Stop 01/15/18 at 15:59; Status DC Albuterol Sulfate (Albuterol Neb) 2.5 mg Q2HR NEB PRN INH SOB/WHEEZING; Start 01/11/18 at 14:00 Miscellaneous Information 1 [id number] XX Last administered on 01/11/18at 14:00; Start 01/11/18 at 14:00 Chlorhexidine Gluconate (Chlorhexidine 2% Cloth) Taper DAILY@04 TOP Last administered on 01/13/18at 04:00; Start 01/12/18 at 04:00; Stop 01/08/19 at 03:59 Chlorhexidine Gluconate (Chlorhexidine 2% Cloth) 3 pack UNSCH PRN TOP HYGIENIC CARE; Start 01/11/18 at 14:00 Senna/Docusate Sodium (Porsha-Colace) 1 tab BID PO Last administered on 01/17/18 09:08; Start 01/11/18 at 21:00 Magnesium Hydroxide (Milk Of Magnesia Liq) 30 ml Q12H PRN PO Mild constipation ; Start 01/11/18 at 14:00 Sennosides (Senokot) 17.2 mg Q12H PRN PO Moderate constipation; Start 01/11/18 at 14:00 Bisacodyl (Dulcolax Supp) 10 mg DAILY PRN RECTAL SEVERE CONSITIPATION; Start at 14:00 Lactulose (Lactulose Liq) 30 ml DAILY PRN PO SEVERE CONSITIPATION; Start at 14:00 Calcium Carbonate (Oscal) 1,500 mg DAILY PO Last administered on 01/17/18 09:08 ; Start 01/12/18 at 09:00 Pantoprazole Sodium (Protonix) 40 mg DAILY PO Last administered on 01/17/18 09: 07; Start 01/12/18 at 09:00 Phytonadione 10 mg/Sodium Chloride 51 ml @ 102 mls/hr ONCE ONCE IV Last administered on 01/12/18at 07:36; Start 01/12/18 at 07:15; Stop 01/12/18 at 07:44; Status DC Aspirin (Aspirin Chew) 81 mg DAILY CHEW Last administered on 01/17/18at 09:09; Start 01/12/18 at 11:00 Metoprolol Tartrate (Lopressor) 12.5 mg Q12HR PO Last administered on 01/17/18 09:08; Start 01/12/18 at 12:45 Magnesium Sulfate/ Dextrose 100 ml @ 100 mls/hr Q1H IV Last administered on 01/12/18at 21:55; Start 01/12/18 at 13:00; Stop 01/12/18 at 14:59; Status DC Pharmacy Profile Note 0 ml @ 0 mls/hr UNSCH OTHER ; Start 01/13/18 at 09:15; Stop 01/13/18 at 14:23; Status DC Potassium Bicarb/ Potassium Chloride (K-Lyte Cl Eff) 25 meq ONCE ONCE PO Last administered on 01/13/18at 11:55; Start 01/13/18 at 11:00; Stop 01/13/18 at 11: 04; Status DC Magnesium Sulfate/ Dextrose 100 ml @ 100 mls/hr ONCE ONCE IV Last administered on 01/13/18at 11:55; Start 01/13/18 at 11:00; Stop 01/13/18 at 11:59; Status DC Gadodiamide (Omniscan Pf Inj) 20 ml STK-MED ONCE IVCONTRAST Last administered on 01/13/18at 11:37; Start 01/13/18 at 11:37; Stop 01/13/18 at 11:38; Status DC Heparin Sodium/ Dextrose 250 ml @ 11 mls/hr TITRATE PRN IV Coagulation Management Last administered on 01/13/18at 15:55; Start 01/13/18 at 16:00 Levothyroxine Sodium (Synthroid) 25 mcg DAILY@0600 PO Last administered on at 04:56; Start 01/15/18 at 06:00 Heparin Sodium/ Sodium Chloride 2,000 ml @ As Directed STK-MED ONCE IV FLUSH ; Start 01/15/18 at 08:31; Stop 01/15/18 at 08:32; Status DC Verapamil HCl (Isoptin Inj) 5 mg STK-MED ONCE .ROUTE Last administered on at 09:08; Start 01/15/18 at 08:33; Stop 01/15/18 at 08:34; Status DC Heparin Sodium (Porcine) (Heparin Inj) 10,000 units STK-MED ONCE .ROUTE Last administered on 01/15/18at 09:08; Start 01/15/18 at 08:33; Stop 01/15/18 at 08:34; Status DC Lidocaine HCl (Xylocaine-Mpf 1% Inj) 30 ml STK-MED ONCE .ROUTE Last administered on 01/15/18at 08:46; Start 01/15/18 at 08:46; Stop 01/15/18 at 08:47; Status DC Fentanyl Citrate (fentaNYL INJ) 100 mcg STK-MED ONCE .ROUTE Last administered on 01/15/18at 09:03; Start 01/15/18 at 09:02; Stop 01/15/18 at 09:03; Status DC Iohexol (OMNIPAQUE 350 INJ (Home Visitor)) 100 ml STK-MED ONCE OTHER ; Start at 12:08; Stop 01/15/18 at 12:09; Status DC Albumin Human 100 ml @ 60 mls/hr Q8H IV Last administered on 01/17/18at 04:55; Start 01/15/18 at 13:00 Sodium Chloride 1,000 ml @ 84 mls/hr [id number] IV Last administered on 01/17/18at 04:55; Start 01/15/18 at 13:00 Furosemide (Lasix Inj) 20 mg DAILY IV PUSH Last administered on 01/17/18at 09:09 ; Start 01/16/18 at 09:00 Warfarin Sodium (Coumadin) 3 mg DAILY@16 PO Last administered on 01/15/18at 16:46 ; Start 01/15/18 at 16:00; Stop 01/16/18 at 15:51; Status DC Warfarin Sodium (Coumadin) 5 mg DAILY@1600 PO Last administered on 01/16/18at 16: 26; Start 01/16/18 at 16:00 A/P Assessment and Plan NSTEMI Nonsustained ventricular tachycardia Respiratory insufficiency Dehydration, oliguria Hypotension 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 Taveras, will probably need ischemic workup CATH TOMORROW -- SP CATH - STABLE -Keep potassium more than 4, magnesium more than 2. 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 s/p 2 units of FFP and 10 mg IV vitamin K 01/12 -Aspirin 81 mg daily. At this time patient will not tolerate MARLO inhibitors or beta-blockers -Gentle hydration with isotonic crystalloid. -Follow renal function and natruretic peptide closely -Pepcid for GI ulcer prophylaxis -Patient is fully anticoagulated, holding SCDs, as the skin will macerate until hydrated -Follow-up labs chest x-ray in a.m. PCM WILL GIVE ALBUMIN AND FLUIDS AND LASIX RELOAD COUMADIN INR IS 2.0 DC TO HOME TODAY Discharge Planning DC TO HOME TODAY Kirk Long DO Jan 17, 2018 10:33
[2018-01-17] MEDS ORDERED: ASPI81 CHEW (10:39)
[2018-01-17] MEDS ORDERED: MEGE5SUS3 PO (10:39)
[2018-01-17] MEDS ORDERED: LEVO25TA4 PO (10:39)
[2018-01-17] MEDS ORDERED: PERC5TAB12 PO (10:39)
[2018-01-17] MEDS ORDERED: PERI PO (10:39)
[2018-01-17] MEDS ORDERED: METO25TA3 PO (10:39)
[2018-01-17] MEDS ORDERED: PROT40TA PO (10:39)
[2018-01-17] MEDS ORDERED: POLY99.0 EACH EYE (10:39)
[2018-01-17] MEDS ORDERED: CALC600T4 PO (10:39)
[2018-01-17] MEDS ORDERED: COUM3TAB PO (10:39)
--- NOTE | 2018-01-17 10:41 | HHI.DS ---
Discharge Summary Admission Date Jan 11, 2018 at 13:40 Discharge Date: Jan 17, 2018 Admitting Diagnosis Hypoxia, Hypotension, Pleural Effusion (1) Elevated troponin ICD Code: R74.8 - Abnormal levels of other serum enzymes Diagnosis: Principal (2) Diffuse large B cell lymphoma ICD Code: C83.30 - Diffuse large B-cell lymphoma, unspecified site Diagnosis: Principal (3) Pleural effusion ICD Code: J90 - Pleural effusion, not elsewhere classified Diagnosis: Principal Status: Resolved (4) Pulmonary emboli ICD Code: I26.99 - Other pulmonary embolism without acute cor pulmonale Diagnosis: Principal Status: Chronic (5) Cardiomyopathy ICD Code: I42.9 - Cardiomyopathy, unspecified Diagnosis: Principal (6) Non-Hodgkin lymphoma ICD Code: C85.90 - Non-Hodgkin lymphoma, unspecified, unspecified site Diagnosis: Principal Status: Acute (7) Severe protein-calorie malnutrition ICD Code: E43 - Unspecified severe protein-calorie malnutrition Diagnosis: Principal (8) Hypertension ICD Code: I10 - Essential (primary) hypertension Diagnosis: Secondary (9) Debility ICD Code: R53.81 - Other malaise Diagnosis: Secondary Status: Acute (10) Shortness of breath ICD Code: R06.02 - Shortness of breath Diagnosis: Secondary Status: Acute (11) Poor appetite ICD Code: R63.0 - Anorexia Diagnosis: Principal Status: Acute Procedures BL THORACENTESIS Procedure: US guided Thoracentesis Indication: Large right pleural effusion A time-out was completed verifying correct patient, procedure, site, positioning , and special equipment if applicable. The patients right side was prepped and draped in a sterile manner after the appropriate infiltration level was confirmed and marked by ultrasound. 1% lidocaine was used anesthetize the surrounding skin. A 10-blade scalpel used to make the incision. The thoracentesis Angio cath was then introduced without difficulty and needle was removed. Catheter was connected to Vacutainer bottle and 1400 ml of slightly cloudy light yellow fluid was removed. A post-procedure chest x-ray was ordered and the fluid will be sent for several studies. Estimated Blood Loss: <1 ml The patient tolerated the procedure well and there were no immediate complications. Leona Balderrama MD Jan 12, 2018 11:51 Procedure: US guided Left Thoracentesis Indication: Large left pleural effusion, respiratory insufficiency A time-out was completed verifying correct patient, procedure, site, positioning , and special equipment if applicable. The patients left side was prepped and draped in a sterile manner after the appropriate infiltration level was confirmed and marked by ultrasound. 1% lidocaine was used anesthetize the surrounding skin. A 10-blade scalpel used to make the incision. The thoracentesis Angio cath was then introduced without difficulty and needle was removed. Catheter was connected to Vacutainer bottle and 1300 ml of cloudy light yellow fluid was removed. A post-procedure chest x-ray was ordered and the fluid will be sent for several studies. Estimated Blood Loss: <1 ml The patient tolerated the procedure well and there were no immediate complications. Leona Balderrama MD Jan 13, 2018 09:06 Brief History - From Admission This 47-year-old man with recently diagnosed non-Hodgkin's lymphoma, B-cell type , presents to the emergency department with worsening shortness of breath over the past 2 days. Particularly troublesome as his room air oxygen saturation of 80%. CAT scan of the chest shows hypovolemia and large bilateral pleural effusions. Aside from a fading parenchymal pneumonitis the lung canas are clear. There is a small amount of pericardial fluid is well. Cardiac echo is pending at this point but we know from history that he has a markedly depressed ventricular function. He is an Entresto has been held because of hypotension. On physical exam the gentleman appears markedly dehydrated but his B natruretic peptide is also markedly hydrated. My impression is that we will just have to gingerly hydrate this gentleman and follow his pulmonary exam. There is no evidence of sepsis at this time. PAST MEDICAL HISTORY: 1. High grade B cell lymphoma. 2. Hypertension. 3. Pulmonary embolism. 4. Renal failure. 5. Bacterial endocarditis. 6. Cardiomyopathy. 7. Pleural effusion. 8. Infected port. 9. History of MRSA. 10. History of C. difficile colitis. CBC/BMP: 01/17/18 0500 01/17/18 0500 Significant Findings Laboratory Tests Test 01/14/18 12:21 01/15/18 04:20 01/16/18 05:38 01/17/18 05:00 Activated Partial Thromboplast Time 49.2 SEC (24.3-30.1) 49.7 SEC (24.3-30.1) Red Blood Count 3.32 MIL/MM3 (4.50-5.90) 3.39 MIL/MM3 (4.50-5.90) 3.44 MIL/MM3 (4.50-5.90) Hemoglobin 8.9 GM/DL (13.0-17.0) 9.1 GM/DL (13.0-17.0) 9.1 GM/DL (13.0-17.0) Hematocrit 26.8 % (39.0-51.0) 28.1 % (39.0-51.0) 28.3 % (39.0-51.0) Mean Corpuscular Hemoglobin 26.9 PG (27.0-34.0) 26.8 PG (27.0-34.0) 26.5 PG (27.0-34.0) Red Cell Distribution Width 19.9 % (11.6-17.2) 20.6 % (11.6-17.2) 20.8 % (11.6-17.2) Neutrophils (%) (Auto) 88.6 % (16.0-70.0) 90.6 % (16.0-70.0) 89.0 % (16.0-70.0) Lymphocytes (%) (Auto) 4.6 % (9.0-44.0) 3.8 % (9.0-44.0) 5.5 % (9.0-44.0) Lymphocytes # (Auto) 0.3 TH/MM3 (1.0-4.8) 0.3 TH/MM3 (1.0-4.8) 0.3 TH/MM3 (1.0-4.8) Prothrombin Time 14.5 SEC (9.8-11.6) 16.1 SEC (9.8-11.6) 20.5 SEC (9.8-11.6) Creatinine 1.34 MG/DL (0.60-1.30) 1.43 MG/DL (0.60-1.30) 1.59 MG/DL (0.60-1.30) Total Protein 5.4 GM/DL (6.4-8.2) 5.9 GM/DL (6.4-8.2) 5.7 GM/DL (6.4-8.2) Albumin 2.0 GM/DL (3.4-5.0) 2.7 GM/DL (3.4-5.0) 3.1 GM/DL (3.4-5.0) Calcium Level 8.0 MG/DL (8.5-10.1) 8.4 MG/DL (8.5-10.1) 8.4 MG/DL (8.5-10.1) Phosphorus Level 2.2 MG/DL (2.5-4.9) Alanine Aminotransferase (ALT/SGPT) LESS THAN 6 U/L (12-78) LESS THAN 6 U/L (12-78) 6 U/L (12-78) Carbon Dioxide Level 19.6 MEQ/L (21.0-32.0) 14.2 MEQ/L (21.0-32.0) 15.6 MEQ/L (21.0-32.0) Estimat Glomerular Filtration Rate 69 ML/MIN (>89) 64 ML/MIN (>89) 56 ML/MIN (>89) Random Glucose 69 MG/DL (74-106) 45 MG/DL (74-106) Alkaline Phosphatase 198 U/L (45-117) 138 U/L (45-117) Chloride Level 108 MEQ/L (98-107) 109 MEQ/L (98-107) Imaging Last Impressions Chest X-Ray 01/14/18 0600 Signed Impressions: Service Date/Time: January 04:49 - CONCLUSION: No significant change Tacos Garcia MD Cardiac MRI 01/13/18 0000 Signed Impressions: Service Date/Time: Saturday, January 13, 2018 10:23 - CONCLUSION: 1. 5.3 x 4.6 x 7.8 cm mediastinal mass lesion to the right and posterior of the left atrium. Mass impinges on the atrial lumen and actually appears to be a small tongue of tissue measuring 1.7 cm in diameter which protrudes into the atrial lumen. 2. Hypokinesis most prominent in the inferior wall and apex 3. Bilateral pleural effusions, right greater than left. River Quintero MD Lung Scan-[facility] Nuclear Medicine 01/11/18 0000 Signed Impressions: Service Date/Time: Thursday, January 11, 2018 11:00 - CONCLUSION: 1. The examination is negative for pulmonary embolus. Adama Briceño MD Chest CT 01/11/18 0000 Signed Impressions: Service Date/Time: Thursday, January 11, 2018 10:21 - CONCLUSION: 1. Bilateral pleural effusions, slightly larger than on prior CT 12/30/17. 2. 5 cm mass in the posterior mediastinum, similar to prior CT. The mediastinal structures are suboptimally evaluated due to the absence of mediastinal fat and lack of intravenous contrast. 3. Persistent right lower lobe consolidation. Bryon Evans MD PE at Discharge GENERAL: Awake alert and oriented 3 talkative and cooperative very thin appearing -[place] male SKIN: Warm and dry. HEAD: Atraumatic. Normocephalic. EYES: Pupils equal and round. No scleral icterus. No injection or drainage. Extraocular muscles intact ENT: No nasal bleeding or discharge. Mucous membranes pink and moist. Tongue is midline NECK: Trachea midline. No JVD. Supple CARDIOVASCULAR: IRRegular rate and rhythm. S1-S2 no S3 or S4 RESPIRATORY: No accessory muscle use. Clear to auscultation. Breath sounds equal bilaterally. GASTROINTESTINAL: Abdomen soft, non-tender, nondistended. Hepatic and splenic margins not palpable. MUSCULOSKELETAL: Extremities without clubbing, cyanosis, or edema. No obvious deformities. NEUROLOGICAL: Awake and alert. No obvious cranial nerve deficits. Motor grossly within normal limits. 4 out of 5 muscle strength in the arms and legs. Normal speech. PSYCHIATRIC: Appropriate mood and affect; insight and judgment normal. Hospital Course This 47-year-old man with recently diagnosed non-Hodgkin's lymphoma, B-cell type , presents to the emergency department with worsening shortness of breath over the past 2 days. Particularly troublesome as his room air oxygen saturation of 80%. CAT scan of the chest shows hypovolemia and large bilateral pleural effusions. Aside from a fading parenchymal pneumonitis the lung canas are clear. There is a small amount of pericardial fluid is well. Cardiac echo is pending at this point but we know from history that he has a markedly depressed ventricular function. He is an Entresto has been held because of hypotension. On physical exam the gentleman appears markedly dehydrated but his B natriuretic peptide is also markedly hydrated. My impression is that we will just have to gingerly hydrate this gentleman and follow his pulmonary exam. There is no evidence of sepsis at this time. 01/12/18: Patient lying in bed slightly tachypneic. Chest x-ray shows at least moderate sized bilateral effusion. 2D echo yesterday showed probable atrial mass. Cardiac MRI ordered. Few nonsustained episodes of wide-complex tachycardia overnight. Troponin elevated, peaked at 3.6. Cardiology consulted. Start aspirin, will not tolerate beta blockers or MARLO inhibitors at this time 01/13: Subjectively much improved, respiratory duggan. Had thoracentesis and almost 1.5 L removed from the right side. Cardiac MRI pending. INR is 1.5. Will drain Left side today. Effusion appears malignant secondary to lymphoma, predominantly lymphocytes. On discussion with Dr. Connelly it appears patient has very aggressive nonresponding lymphoma 4-5 FOR CARDIAC CATH TOMORROW NO SOB NO CHEST PAIN MOVING ALL EXTREMITIES LYMPHOMA VERY AGGRESSIVE 4-6 HAD CARDIAC CATH NO INTERVENTIONS DONE POOR APPETITE DW RN AND PT AND CM AGGRESSIVE LYMPHOMA WILL GIVE ALBUMIN FLUIDS AND LASIX - RELOAD COUMADIN GOAL 2.0 TO 3.0 INR IS 1.6- WILL GIVE 5MG TODAY CONTINUE LASIX AND FLUIDS AND ALBUMIN DW RN AND PT AND CAM HOPEFULLY HOME TOMORROW AM LABS 01-17 INR IS 2.0 PATIENT CAN GO HOME TODAY NOT EATING MUCH NEEDS FOLLOW UP WITH ONCOLOGY DC TO HOME TODAY Pt Condition on Discharge: Good Discharge Disposition: Discharge Home Discharge Time: > 30 minutes Discharge Instructions DIET: Follow Instructions for: As Tolerated, No Restrictions Speech Therapy-Diet Recommends: Regular Activities you can perform: Regular-No Restrictions Follow up Referrals: Oncology/Hematology - 01/18/18 with Ruslan Connelly MD PCP Follow-up - 2-3 Days New Medications: Megestrol Acetate (Megestrol Acetate) 400 Mg/10 Ml (10 Ml) Oral.susp 10 ML PO DAILY for Nutritional Supplement for 30 Days, #300 ML Aspirin (Tgt Aspirin) 81 Mg Chw 81 MG CHEW DAILY for Blood Clot Prevention, #30 EA Levothyroxine (Levothyroxine) 25 Mcg Tab 25 MCG PO DAILY@0600 for Thyroid, #30 TAB Metoprolol Tartrate (Metoprolol Tartrate) 25 Mg Tab 12.5 MG PO Q12HR for Blood Pressure Management, #60 TAB Polyvinyl Alcohol Opth Drops (Artificial Tears Opth Drops) 1.4% Soln 1 DROP EACH EYE TID for Dry Eye, #10 ML Sennosides-Docusate Sodium (Gnp Senna Plus 8.6-50 mg) 8.6 Mg-50 Mg Tab 2 TAB PO BID for Constipation, #120 TAB Continued Medications: Calcium Carbonate (Calcium Carbonate) 1,500 Mg Tab 1500 MG PO DAILY for Calcium Supplement, #30 TAB 0 Refills (This prescription has been renewed) 1,500 mg calcium carbonate (600 mg elemental calcium) Oxycodone-Acetaminophen (Percocet) 5-325 mg Tab 1 TAB PO Q6H PRN for PAIN, #30 TAB 0 Refills (This prescription has been renewed ) Pantoprazole (Protonix) 40 Mg Tab 40 MG PO DAILY for Reflux, #30 TAB 0 Refills (This prescription has been renewed ) Warfarin (Coumadin) 3 Mg Tab 3 MG PO DAILY@1600 for Prevent Blood Clot, #30 TAB 3 Refills (This prescription has been renewed) Discontinued Medications: Sacubitril-Valsartan (Entresto) 24-26 Mg Tab 1 TAB PO BID for Heart Failure, #30 TAB 0 Refills Kirk Long DO Jan 17, 2018 10:41
--- NOTE | 2018-01-17 13:08 | PD.CARD.PN ---
Subjective Subjective Remarks Patient was seen earlier, late entry Overall doing well, no complaints Objective Vital Signs / I&O Vital Signs Date Time Temp Pulse Resp B/P (MAP) Pulse Ox O2 Delivery O2 Flow Rate FiO2 01/17/18 12:27 74 01/17/18 08:00 98.2 86 16 140/90 (107) 97 01/17/18 08:00 84 01/17/18 06:00 82 01/17/18 05:00 84 01/17/18 04:48 97.6 82 20 133/100 (111) 96 01/17/18 04:00 81 01/17/18 03:00 80 01/17/18 02:00 74 01/17/18 01:00 74 01/17/18 00:03 96.4 78 130/77 (94) 95 01/17/18 00:00 76 01/16/18 23:00 76 01/16/18 22:00 84 01/16/18 21:00 84 01/16/18 20:00 79 01/16/18 20:00 97.8 84 20 133/95 (108) 95 01/16/18 19:00 80 01/16/18 18:14 79 01/16/18 16:21 84 01/16/18 15:10 80 01/16/18 15:10 97.5 79 18 134/98 (110) 93 01/16/18 14:02 80 01/16/18 13:17 77 I/O 01/16/18 01/16/18 01/16/18 01/17/18 01/17/18 01/17/18 07:00 15:00 23:00 07:00 15:00 23:00 Intake Total 240 ml 100 ml 100 ml Output Total 100 ml Balance 140 ml 100 ml 100 ml Intake Oral 240 ml IV Total 100 ml 100 ml Output Urine Total 100 ml # Voids 1 # Bowel Movements 1 Physical Exam GENERAL: NAD, AAOx3 SKIN: Warm and dry. HEAD: Atraumatic. Normocephalic. EYES: Pupils equal and round. No scleral icterus. No injection or drainage. ENT: No nasal bleeding or discharge. Mucous membranes pink and moist. NECK: Trachea midline. No JVD. CARDIOVASCULAR: Regular rate and rhythm. RESPIRATORY: Decreased breath sounds GASTROINTESTINAL: Abdomen soft, non-tender, nondistended. Hepatic and splenic margins not palpable. MUSCULOSKELETAL: Extremities without clubbing, cyanosis, or edema. No obvious deformities. NEUROLOGICAL: Awake and alert. No obvious cranial nerve deficits. Motor grossly within normal limits. Five out of 5 muscle strength in the arms and legs. Normal speech. PSYCHIATRIC: Appropriate mood and affect; insight and judgment normal. Laboratory Laboratory Tests Test 01/17/18 05:00 White Blood Count 5.9 TH/MM3 Red Blood Count 3.44 MIL/MM3 Hemoglobin 9.1 GM/DL Hematocrit 28.3 % Mean Corpuscular Volume 82.3 FL Mean Corpuscular Hemoglobin 26.5 PG Mean Corpuscular Hemoglobin Concent 32.2 % Red Cell Distribution Width 20.8 % Platelet Count 256 TH/MM3 Mean Platelet Volume 8.2 FL Neutrophils (%) (Auto) 89.0 % Lymphocytes (%) (Auto) 5.5 % Monocytes (%) (Auto) 5.0 % Eosinophils (%) (Auto) 0.3 % Basophils (%) (Auto) 0.2 % Neutrophils # (Auto) 5.3 TH/MM3 Lymphocytes # (Auto) 0.3 TH/MM3 Monocytes # (Auto) 0.3 TH/MM3 Eosinophils # (Auto) 0.0 TH/MM3 Basophils # (Auto) 0.0 TH/MM3 CBC Comment DIFF FINAL Differential Comment Prothrombin Time 20.5 SEC Prothromb Time International Ratio 2.0 RATIO Blood Urea Nitrogen 18 MG/DL Creatinine 1.59 MG/DL Random Glucose 45 MG/DL Total Protein 5.7 GM/DL Albumin 3.1 GM/DL Calcium Level 8.4 MG/DL Phosphorus Level 3.8 MG/DL Magnesium Level 1.7 MG/DL Alkaline Phosphatase 138 U/L Aspartate Amino Transf (AST/SGOT) 25 U/L Alanine Aminotransferase (ALT/SGPT) 6 U/L Total Bilirubin 0.8 MG/DL Sodium Level 139 MEQ/L Potassium Level 4.4 MEQ/L Chloride Level 109 MEQ/L Carbon Dioxide Level 15.6 MEQ/L Anion Gap 14 MEQ/L Estimat Glomerular Filtration Rate 56 ML/MIN Assessment and Plan Problem List: (1) Diffuse large B cell lymphoma ICD Codes: C83.30 - Diffuse large B-cell lymphoma, unspecified site (2) Cardiomyopathy ICD Codes: I42.9 - Cardiomyopathy, unspecified (3) Pleural effusion ICD Codes: J90 - Pleural effusion, not elsewhere classified Status: Resolved (4) Acute respiratory failure with hypoxia ICD Codes: J96.01 - Acute respiratory failure with hypoxia Status: Acute (5) Elevated troponin ICD Codes: R74.8 - Abnormal levels of other serum enzymes Assessment and Plan 1) Bilateral thoracentesis Malignant effusions 2) Aggressive lymphoma per Heme/Onc 3) NSTEMI/Wide complex tachycardia No further arrhythmias Cardiac cath showing no significant CAD BB therapy ASA 4) Hx of PE Coumadin resumed, INR 2 today 5) Left atrial mass Cardiac MRI showing a large mass impinging on the left atrium Can definitely cause arrhythmias, but more likely atrial arrhythmias 6) No further cardiovascular workup necessary Cardiovascularly stable for discharge Terry Taveras DO Jan 17, 2018 13:08
== END 2018-01-17 12:51 | disposition home or self-care (01) | DRG 840 ==
LOC: NEPC 08:04 → NEDA 13:40 → HIME 15:25 → HCIS 01-13 21:03 → HCIN 01-16 16:31
PROVIDERS: ADMIT Hospitalist; ATTEND Hospitalist
PROC: 3E0F7GC Introduction of Other Therapeutic Substance into Respiratory Tract, Via Natural or Artificial Opening (ICD-10-PCS; principal; 2018-01-11)
PROC: 0W993ZX Drainage of Right Pleural Cavity, Percutaneous Approach, Diagnostic (ICD-10-PCS; 2018-01-12)
PROC: 30233K1 Transfusion of Nonautologous Frozen Plasma into Peripheral Vein, Percutaneous Approach (ICD-10-PCS; 2018-01-12)
PROC: 0W9B3ZX Drainage of Left Pleural Cavity, Percutaneous Approach, Diagnostic (ICD-10-PCS; 2018-01-13)
PROC: 4A023N7 Measurement of Cardiac Sampling and Pressure, Left Heart, Percutaneous Approach (ICD-10-PCS; 2018-01-15)
PROC: B2111ZZ Fluoroscopy of Multiple Coronary Arteries using Low Osmolar Contrast (ICD-10-PCS; 2018-01-15)
DX: C83.38 Diffuse large B-cell lymphoma, lymph nodes of multiple sites (principal); C83.39 Diffuse large B-cell lymphoma, extranodal and solid organ sites; J96.01 Acute respiratory failure with hypoxia; I21.4 Non-ST elevation (NSTEMI) myocardial infarction; E43 Unspecified severe protein-calorie malnutrition; I47.2 Ventricular tachycardia; I95.9 Hypotension, unspecified; I31.3 Pericardial effusion (noninflammatory); N17.9 Acute kidney failure, unspecified; J91.0 Malignant pleural effusion; I42.9 Cardiomyopathy, unspecified; I25.10 Atherosclerotic heart disease of native coronary artery without angina pectoris; E86.0 Dehydration; E86.1 Hypovolemia; I48.91 Unspecified atrial fibrillation; I10 Essential (primary) hypertension; Z79.01 Long term (current) use of anticoagulants; Z86.711 Personal history of pulmonary embolism; Z87.891 Personal history of nicotine dependence; Z86.14 Personal history of Methicillin resistant Staphylococcus aureus infection; Z86.19 Personal history of other infectious and parasitic diseases
CPT/HCPCS: 32554; 36430; 71045; 71250; 75561; 76937; 78582; 80053; 82040; 82150; 82550; 82552; 82945; 82948; 83036; 83605; 83615; 83735; 83880; 83986; 84100; 84157; 84439; 84443; 84484; 85025; 85610; 85730; 86927; 87015; 87070; 87102; 87116; 87205; 87206; 87641; 88112; 88305; 89051; 93005; 93306; 93458; 94150; 94640; 94664; 96360; 96361; A9540; A9567; A9579; C1769; C1893; J1644; J1940; J2270; J3010; J3430; J3475; J7030; J7040; P9017; P9047; Q9967

== ENCOUNTER 2018-01-18 21:26 | Inpatient (IN) | payer MEDICAID ==
[~2018-01-18] VITALS: Ht 188 cm; Wt 63.4 kg
[~2018-01-18 21:26] MED LIST changes: -ALLO300 PO; +ASPI81 CHEW; +LEVO25TA4 PO; +MEGE5SUS3 PO; -NIFE30TA61 PO; +PERI PO; +POLY99.0 EACH EYE; -SACU1TAB PO
[2018-01-18 21:36] VITALS: BP 139/95; PULSE 90; PULSE 92; RESP 28; TEMP 98.6; O2SAT 92
[2018-01-18 21:40] VITALS: O2SAT 96
[2018-01-18] MEDS ORDERED: SODIUM CHLORIDE 0.9% FLUSH 10 ML FLUSH IVF PRN (22:00)
--- NOTE | 2018-01-18 22:32 | RADRPT ---
EXAM DATE/TIME: 01/18/2018 22:02 [facility] COMPARISON: CHEST SINGLE AP, January 14, 2018, 4:49. INDICATIONS : Short of breath. MEDICAL HISTORY : Hypertension. Non Hodgkins lymphoma. SURGICAL HISTORY : thoracentesis. ENCOUNTER: Initial ACUITY: 1 day PAIN SCORE: 0/10 LOCATION: Bilateral chest FINDINGS: A single view of the chest demonstrates [id number] tip in right atrium. Cardiomegaly. Bilateral ef fusions and basilar airspace disease. No pneumothorax. CONCLUSION: 1. Basilar airspace disease and pleural effusions. No pneumothorax. [id number] in right atrium. Travis Ruffin MD on January 18, 2018 at 22:28 Board Certified Radiologist. This report was verified electronically.
[2018-01-18 23:05] LABS: INTERNATIONAL NORMALIZED RATIO 2.1 RATIO; PROTHROMBIN TIME - PATIENT 21.6 SEC (9.8-11.6)
[2018-01-18 23:26] LABS: AUTOMATED NEUTROPHIL # 7.5 TH/MM3 (1.8-7.7); BASOPHIL % 0.5 % (0.0-2.0); HEMATOCRIT 30.1 % (39.0-51.0); HEMOGLOBIN 9.9 GM/DL (13.0-17.0); LYMPH % 3.2 % (9.0-44.0); LYMPHOCYTE # 0.3 TH/MM3 (1.0-4.8); MEAN CELL VOLUME 81.6 FL (80.0-100.0); MEAN CORPUSCULAR HEMOGLOBIN 26.9 PG (27.0-34.0); MEAN CORPUSCULAR HGB CONC 32.9 % (32.0-36.0); MEAN PLATELET VOLUME 8.3 FL (7.0-11.0); MONO % 4.9 % (0.0-8.0); MONOCYTE # 0.4 TH/MM3 (0-0.9); NEUT % 91.4 % (16.0-70.0); PLATELET COUNT 238 TH/MM3 (150-450); RED BLOOD COUNT 3.69 MIL/MM3 (4.50-5.90); RED CELL DISTRIBUTION WIDTH 21.7 % (11.6-17.2); WHITE BLOOD COUNT 8.2 TH/MM3 (4.0-11.0)
--- NOTE | 2018-01-18 23:46 | PD ---
HPI Chief Complaint: Respiratory Symptoms Time Seen by Provider: 21:50 Travel History International Travel<30 days: No Contact w/Intl Traveler<30days: No Traveled to known affect area: No History of Present Illness HPI Patient is a 47-year-old male with history of non-Hodgkin's lymphoma, who comes in complaining of shortness of breath. He was discharged yesterday after hospital stay in which he had bilateral thoracentesis performed. He is supposed to follow-up with oncology today, but his mom did not bring him to the appointment because she felt he was too weak. He says this started again today. He denies chest pain. He does not wear oxygen at home. He is also had swelling of his hands and feet. Severity is moderate. PFSH Past Medical History Hx Anticoagulant Therapy: Yes Asthma: No Atrial Fibrillation: Yes Autoimmune Disease: No Anxiety: No Depression: No Heart Rhythm Problems: Yes Cancer: No (Dr Connelly) Cardiovascular Problems: Yes High Cholesterol: No Chemotherapy: Yes Chest Pain: No Congestive Heart Failure: No COPD: No Diabetes: No Endocrine: No Gastrointestinal Disorders: No Genitourinary: No Hypertension: Yes Immune Disorder: No Implanted Vascular Access Dvce: Yes (PORT RIGHT CHEST) Musculoskeletal: No Neurologic: No Psychiatric: No Reproductive: No Respiratory: Yes (Pulmonary embolism in past) Immunizations Current: Yes Radiation Therapy: No Sleep Apnea: Yes Thyroid Disease: No Tetanus Vaccination: < 5 Years Influenza Vaccination: Yes Past Surgical History Abdominal Surgery: No Cardiac Surgery: Yes Ear Surgery: No Endocrine Surgery: No Eye Surgery: No Genitourinary Surgery: No Gynecologic Surgery: No Neurologic Surgery: No Oral Surgery: No Thoracic Surgery: No Other Surgery: Yes (RIGHT PORT ) Social History Alcohol Use: No (quit 02/2017) Tobacco Use: No (quit 02/2017) Substance Use: No Allergies-Medications (Allergen,Severity, Reaction): Coded Allergies: Milk Containing Products (Verified Allergy, Mild, diarrhea, 01/18/18) Reported Meds & Prescriptions Reported Meds & Active Scripts Active Levothyroxine (Levothyroxine Sodium) 25 Mcg Tab 25 Mcg PO DAILY@0600 Tgt Aspirin (Aspirin) 81 Mg Chw 81 Mg CHEW DAILY Metoprolol Tartrate 25 Mg Tab 12.5 Mg PO Q12HR Percocet (Oxycodone-Acetaminophen) 5-325 mg Tab 1 Tab PO Q6H PRN Protonix (Pantoprazole Sodium) 40 Mg Tab 40 Mg PO DAILY Calcium Carbonate 1,500 Mg Tab 1,500 Mg PO DAILY 1,500 mg calcium carbonate (600 mg elemental calcium) Coumadin (Warfarin) 3 Mg Tab 3 Mg PO DAILY@1600 Review of Systems Except as stated in HPI: all other systems reviewed are Neg General / Constitutional: No: Fever, Chills HENT: No: Headaches, Lightheadedness Cardiovascular: No: Chest Pain or Discomfort Respiratory: Positive: Shortness of Breath Gastrointestinal: No: Nausea, Vomiting Musculoskeletal: Positive: Edema Skin: No Change in Pigmentation Neurologic: No: Weakness, Dizziness Physical Exam Narrative GENERAL: Awake and alert, in mild respiratory distress. SKIN: Focused skin assessment warm/dry. HEAD: Atraumatic. Normocephalic. EYES: Pupils equal and round. No scleral icterus. ENT: Mucous membranes pink and moist. NECK: Trachea midline. No JVD. CARDIOVASCULAR: Regular rate and rhythm. No murmur appreciated. RESPIRATORY: Tachypnea and decreased breath sounds in both lungs. Breath sounds equal bilaterally. GASTROINTESTINAL: Abdomen soft, non-tender, nondistended. MUSCULOSKELETAL: No obvious deformities. No clubbing. No cyanosis. Edema of the hands and feet. NEUROLOGICAL: Awake and alert. No obvious cranial nerve deficits. Motor grossly within normal limits. Normal speech. PSYCHIATRIC: Appropriate mood and affect; insight and judgment normal. Data Data Last Documented VS Vital Signs Date Time Temp Pulse Resp B/P (MAP) Pulse Ox O2 Delivery O2 Flow Rate FiO2 01/18/18 23:48 97.5 89 20 131/95 (107) 96 Nasal Cannula 3.00 Orders Orders Complete Blood Count With Diff (01/18/18 21:59) Comprehensive Metabolic Panel (01/18/18 21:59) Act Partial Throm Time (Ptt) (01/18/18 21:59) Prothrombin Time / Inr (Pt) (01/18/18 21:59) Ckmb (Isoenzyme) Profile (01/18/18 21:59) Troponin I (01/18/18 21:59) Iv Access Insert/Monitor (01/18/18 21:59) Ecg Monitoring (01/18/18 21:59) Oximetry (01/18/18 21:59) Oxygen Administration (01/18/18 21:59) Chest, Single Ap (01/18/18 21:59) Sodium Chloride 0.9% Flush (Ns Flush) (01/18/18 22:00) CKMB (01/18/18 23:10) CKMB% (01/18/18 23:10) Dextrose 50% In [place] (Syr) Inj (D50w (Syr (01/19/18 00:15) Admit Order (Ed Use Only) (01/19/18 ) Labs Laboratory Tests Test 01/18/18 22:30 01/18/18 23:10 Prothrombin Time 21.6 SEC Prothromb Time International Ratio 2.1 RATIO Activated Partial Thromboplast Time 33.1 SEC White Blood Count 8.2 TH/MM3 Red Blood Count 3.69 MIL/MM3 Hemoglobin 9.9 GM/DL Hematocrit 30.1 % Mean Corpuscular Volume 81.6 FL Mean Corpuscular Hemoglobin 26.9 PG Mean Corpuscular Hemoglobin Concent 32.9 % Red Cell Distribution Width 21.7 % Platelet Count 238 TH/MM3 Mean Platelet Volume 8.3 FL Neutrophils (%) (Auto) 91.4 % Lymphocytes (%) (Auto) 3.2 % Monocytes (%) (Auto) 4.9 % Eosinophils (%) (Auto) 0.0 % Basophils (%) (Auto) 0.5 % Neutrophils # (Auto) 7.5 TH/MM3 Lymphocytes # (Auto) 0.3 TH/MM3 Monocytes # (Auto) 0.4 TH/MM3 Eosinophils # (Auto) 0.0 TH/MM3 Basophils # (Auto) 0.0 TH/MM3 CBC Comment DIFF FINAL Differential Comment Blood Urea Nitrogen 20 MG/DL Creatinine 1.76 MG/DL Random Glucose 40 MG/DL Total Protein 5.9 GM/DL Albumin 3.1 GM/DL Calcium Level 8.8 MG/DL Alkaline Phosphatase 135 U/L Aspartate Amino Transf (AST/SGOT) 28 U/L Alanine Aminotransferase (ALT/SGPT) 8 U/L Total Bilirubin 0.6 MG/DL Sodium Level 142 MEQ/L Potassium Level 4.2 MEQ/L Chloride Level 109 MEQ/L Carbon Dioxide Level 16.3 MEQ/L Anion Gap 17 MEQ/L Estimat Glomerular Filtration Rate 50 ML/MIN Total Creatine Kinase 109 U/L Creatine Kinase MB 2.0 NG/ML Troponin I 0.49 NG/ML MDM Medical Decision Making Medical Screen Exam Complete: Yes Emergency Medical Condition: Yes Medical Record Reviewed: Yes Differential Diagnosis Pleural effusions versus pneumonia versus PE Narrative Course Patient is a 47-year-old male comes in complaining of shortness of breath. Exam shows decreased breath sounds and tachypnea. X-ray shows large pleural effusions bilaterally. Patient is maintaining his oxygen saturation on nasal cannula, however he is very tachypneic. Troponin is elevated, but it is improved from his previous visit. Glucose noted to be low. He was given dextrose as well as something to eat. He will be admitted for further management. Last 24 hours Impressions Chest X-Ray 01/18/18 9401 Signed Impressions: Service Date/Time: Thursday, January 18, 2018 22:02 - CONCLUSION: 1. Basilar airspace disease and pleural effusions. No pneumothorax. [id number] in right atrium. Travis Ruffin MD Diagnosis Primary Impression: Pleural effusion Additional Impression: Shortness of breath Admitting Information Admitting Physician Requests: Admit Nancy Asif MD Jan 18, 2018 23:46
[2018-01-18 23:48] VITALS: BP 131/95; PULSE 89; RESP 20; TEMP 97.5; O2SAT 96
[2018-01-18 23:50] LABS: ALBUMIN 3.1 GM/DL (3.4-5.0); ALKALINE PHOSPHATASE 135 U/L (45-117); ALT (GPT) 8 U/L (12-78); AST (GOT) 28 U/L (15-37); BICARBONATE 16.3 MEQ/L (21.0-32.0); BLOOD UREA NITROGEN 20 MG/DL (7-18); CALCIUM 8.8 MG/DL (8.5-10.1); CHLORIDE 109 MEQ/L (98-107); CREATININE 1.76 MG/DL (0.60-1.30); GLOMERULAR FILTRATION RATE 50 ML/MIN (>89); SODIUM (NA) 142 MEQ/L (136-145); TOTAL BILIRUBIN ADULT 0.6 MG/DL (0.2-1.0); TOTAL PROTEIN 5.9 GM/DL (6.4-8.2); TROPONIN I 0.49 NG/ML (0.02-0.05)
[2018-01-18 23:54] LABS: GLUCOSE,RANDOM 40 MG/DL (74-106)
[2018-01-19] VITALS (22 sets, daily range): BP systolic 112–154; BP diastolic 81–98; PULSE 90–113; RESP 14–35; TEMP 97–98.5; O2SAT 93–99
[2018-01-19] MEDS ORDERED: DEXTROSE 50% IN WATER 50 ML SYRINGE IV PUSH ONE ×2 (00:15→01:45)
[2018-01-19] MEDS ORDERED: MISCELLANEOUS NURSING INFORMATION XX SCH (00:45)
[2018-01-19] MEDS ORDERED: SODIUM CHLORIDE 0.9% FLUSH 10 ML FLUSH IV FLUSH PRN (00:45)
[2018-01-19] MEDS ORDERED: CHLORHEXIDINE GLUCONATE 2 % 1 PACK (2 CLOTHS) TOP PRN (00:45)
[2018-01-19] MEDS ORDERED: SODIUM CHLOR 0.9% 1000 ML INJ 1,000 ML IV ONE (00:45)
--- NOTE | 2018-01-19 00:54 | HHI.HP ---
HPI Service Critical Care Medicine Primary Care Physician Unknown Admission Diagnosis SOB, pleural effusions Diagnosis: Travel History International Travel<30 Days: No Contact w/Intl Traveler <30 Da: No Traveled to Known Affected Are: No History of Present Illness 47-year-old man with recently diagnosed non-Hodgkin's lymphoma, B-cell type, presents with worsening shortness of breath over the past 2 weeks. He was just discharged after admitted for the same yesterday. CAT scan of the chest at that time celi. There is a small amount of pericardial fluid is well. Review of Systems ROS Unable to obtain due to respiratory distress Past Family Social History Allergies: Coded Allergies: Milk Containing Products (Verified Allergy, Mild, diarrhea, 01/18/18) Past Medical History High grade B cell lymphoma. Hypertension. Pulmonary embolism. Renal failure. Bacterial endocarditis. Cardiomyopathy. Pleural effusion. Infected port. History of MRSA. History of C. difficile colitis. Past Surgical History Right-sided chest port Biopsy of lymph node Reported Medications Reported Meds & Active Scripts Active Levothyroxine (Levothyroxine Sodium) 25 Mcg Tab 25 Mcg PO DAILY@0600 Tgt Aspirin (Aspirin) 81 Mg Chw 81 Mg CHEW DAILY Metoprolol Tartrate 25 Mg Tab 12.5 Mg PO Q12HR Percocet (Oxycodone-Acetaminophen) 5-325 mg Tab 1 Tab PO Q6H PRN Protonix (Pantoprazole Sodium) 40 Mg Tab 40 Mg PO DAILY Calcium Carbonate 1,500 Mg Tab 1,500 Mg PO DAILY 1,500 mg calcium carbonate (600 mg elemental calcium) Coumadin (Warfarin) 3 Mg Tab 3 Mg PO DAILY@1600 Active Ordered Medications Current Medications Medications (Trade) Dose Ordered Sig/Shyla Route PRN Reason Start Time Stop Time Status Last Admin Dose Admin Aspirin (Aspirin Chew) 81 mg DAILY CHEW 01/19/18 09:00 Calcium Carbonate (Oscal) 1,500 mg DAILY PO 01/19/18 09:00 Levothyroxine Sodium (Synthroid) 25 mcg DAILY@0600 PO 01/19/18 06:00 Warfarin Sodium (Coumadin) 3 mg DAILY@1600 PO 01/19/18 16:00 Patient Medication Teaching (Coumadin Booklet) 1 ONCE ONCE .XX 01/19/18 16:00 01/19/18 16:01 Sodium Chloride (NS Flush) 2 ml UNSCH PRN IV FLUSH FLUSH AFTER USING IV ACCESS 01/19/18 00:45 Sodium Chloride (NS Flush) 2 ml BID IV FLUSH 01/19/18 09:00 Famotidine (Pepcid Inj) 20 mg Q12HR IV PUSH 01/19/18 09:00 Albuterol/ Ipratropium (Duoneb Neb) 1 ampule Q4HR NEB INH 01/19/18 04:00 01/19/18 03:24 Albuterol/ Ipratropium (Duoneb Neb) 1 ampule Q2HR NEB PRN NEB WHEEZING 01/19/18 01:00 Heparin Sodium (Porcine) (Heparin Inj) 5,000 units Q12H SQ 01/19/18 12:00 Cefepime HCl 2000 mg/Sodium Chloride 100 ml @ 200 mls/hr Q8H IV 01/19/18 01:00 01/19/18 01:27 Miscellaneous Information 1 [id number] XX 01/19/18 00:45 Chlorhexidine Gluconate (Chlorhexidine 2% Cloth) 3 pack Taper DAILY@04 TOP 01/19/18 04:00 01/15/19 03:59 01/19/18 04:00 Chlorhexidine Gluconate (Chlorhexidine 2% Cloth) 3 pack UNSCH PRN TOP HYGIENIC CARE 01/19/18 00:45 Acetaminophen (Tylenol 650 Mg/ 20 ml Liq) 650 mg Q6H PRN PO fever or pain 1-5 01/19/18 01:00 Morphine Sulfate (Morphine Inj) 2 mg Q4H PRN IV pain 6-10 01/19/18 01:00 Ondansetron HCl (Zofran Inj) 4 mg Q6HR PRN IV PUSH nausea 01/19/18 01:00 Family History Hypertension Social History No recent tobacco, alcohol, or illicit drug abuse Quit drinking and smoking in February 2017 Physical Exam Vital Signs Vital Signs Date Time Temp Pulse Resp B/P (MAP) Pulse Ox O2 Delivery O2 Flow Rate FiO2 01/18/18 23:48 97.5 89 20 131/95 (107) 96 Nasal Cannula 3.00 01/18/18 21:55 22 96 Nasal Cannula 3.00 01/18/18 21:40 96 Nasal Cannula 4.00 01/18/18 21:38 Nasal Cannula 4.00 01/18/18 21:36 98.6 90 28 139/95 (110) 92 Physical Exam GENERAL: This is a very cachectic thin appearing male in moderate to severe respiratory distress. SKIN: No rashes, ecchymoses or lesions. Cool and dry. HEAD: Atraumatic. Normocephalic. No temporal or scalp tenderness. EYES: Pupils equal round and reactive. Extraocular motions intact. No scleral icterus. No injection or drainage. ENT: Nose without bleeding, purulent drainage or septal hematoma. Throat without erythema, tonsillar hypertrophy or exudate. Uvula midline. Airway patent. NECK: Trachea midline. No JVD or lymphadenopathy. Supple, nontender, no meningeal signs. CARDIOVASCULAR: Regular rate and rhythm without murmurs, gallops, positive slight rub S1-S2 no S3 or S4 RESPIRATORY: Clear to auscultation. Breath sounds equal bilaterally however somehow decreased. No wheezes, rales, or rhonchi. GASTROINTESTINAL: Abdomen soft, non-tender, nondistended. No hepato-splenomegaly , or palpable masses. No guarding. MUSCULOSKELETAL: Extremities without clubbing, cyanosis, or edema. No joint tenderness, effusion, or edema noted. No calf tenderness. Negative Homans sign bilaterally. NEUROLOGICAL: Awake and alert. Cranial nerves II through XII intact. Motor and sensory grossly within normal limits. 4 out of 5 muscle strength in all muscle groups. Normal speech. Laboratory Laboratory Tests Test 01/18/18 22:30 01/18/18 23:10 Prothrombin Time 21.6 Prothromb Time International Ratio 2.1 Activated Partial Thromboplast Time 33.1 White Blood Count 8.2 Red Blood Count 3.69 Hemoglobin 9.9 Hematocrit 30.1 Mean Corpuscular Volume 81.6 Mean Corpuscular Hemoglobin 26.9 Mean Corpuscular Hemoglobin Concent 32.9 Red Cell Distribution Width 21.7 Platelet Count 238 Mean Platelet Volume 8.3 Neutrophils (%) (Auto) 91.4 Lymphocytes (%) (Auto) 3.2 Monocytes (%) (Auto) 4.9 Eosinophils (%) (Auto) 0.0 Basophils (%) (Auto) 0.5 Neutrophils # (Auto) 7.5 Lymphocytes # (Auto) 0.3 Monocytes # (Auto) 0.4 Eosinophils # (Auto) 0.0 Basophils # (Auto) 0.0 CBC Comment DIFF FINAL Differential Comment Blood Urea Nitrogen 20 Creatinine 1.76 Random Glucose 40 Total Protein 5.9 Albumin 3.1 Calcium Level 8.8 Alkaline Phosphatase 135 Aspartate Amino Transf (AST/SGOT) 28 Alanine Aminotransferase (ALT/SGPT) 8 Total Bilirubin 0.6 Sodium Level 142 Potassium Level 4.2 Chloride Level 109 Carbon Dioxide Level 16.3 Anion Gap 17 Estimat Glomerular Filtration Rate 50 Total Creatine Kinase 109 Creatine Kinase MB 2.0 Troponin I 0.49 Result Diagram: 01/18/18230901/18/182309 Imaging Last 24 hours Impressions Chest X-Ray 01/18/182158 Signed Impressions: Service Date/Time: Thursday, January 18, 2018 22:02 - CONCLUSION: 1. Basilar airspace disease and pleural effusions. No pneumothorax. [id number] in right atrium. MD Destinee Mckenzie VTE Risk Assessment Caprini VTE Risk Assessment: Mod/High Risk (score >= 2) Caprini Risk Assessment Model Point Value = 1 Point Value = 2 Point Value = 3 Point Value = 5 Age 41-60 Minor surgery BMI > 25 kg/m2 Swollen legs Varicose veins or History of unexplained or recurrent spontaneous Oral contraceptives or hormone replacement Sepsis (< 1 month) Serious lung disease, including pneumonia (< 1 month) Abnormal pulmonary function Acute myocardial infarction Congestive heart failure (< 1 month) History of inflammatory bowel disease Medical patient at bed rest Age 61-74 Arthroscopic surgery Major open surgery (> 45 min) Laparoscopic surgery (> 45 min) Malignancy Confined to bed (> 72 hours) Immobilizing plaster cast Central venous access Age >= 75 History of VTE Family history of VTE Factor V Leiden Prothrombin [id number] Lupus anticoagulant Anticardiolipin antibodies Elevated serum homocysteine Heparin-induced thrombocytopenia Other congenital or acquired thrombophilia Stroke (< 1 month) Elective arthroplasty Hip, pelvis, or leg fracture Acute spinal cord injury (< 1 month) Prophylaxis Regimen Total Risk Factor Score Risk Level Prophylaxis Regimen 0-1 Low Early ambulation 2 Moderate Order ONE of the following: *Sequential Compression Device (SCD) *Heparin 5000 units SQ BID 3-4 Higher Order ONE of the following medications: *Heparin 5000 units SQ TID *Enoxaparin/Lovenox 40 mg SQ daily (WT < 150 kg, CrCl > 30 mL/min) *Enoxaparin/Lovenox 30 mg SQ daily (WT < 150 kg, CrCl > 10-29 mL/min) *Enoxaparin/Lovenox 30 mg SQ BID (WT < 150 kg, CrCl > 30 mL/min) AND/OR *Sequential Compression Device (SCD) 5 or more Highest Order ONE of the following medications: *Heparin 5000 units SQ TID (Preferred with Epidurals) *Enoxaparin/Lovenox 40 mg SQ daily (WT < 150 kg, CrCl > 30 mL/min) *Enoxaparin/Lovenox 30 mg SQ daily (WT < 150 kg, CrCl > 10-29 mL/min) *Enoxaparin/Lovenox 30 mg SQ BID (WT < 150 kg, CrCl > 30 mL/min) AND *Sequential Compression Device (SCD) Assessment and Plan Assessment and Plan Respiratory failure -Bilateral pleural effusion -IR for thoracentesis -Pleural fluid for studies including cytology -Pulmonary consult for recurrent pleural effusion -Consider pleurodesis versus Indwelling Tunneled Pleural Catheters Sepsis -Immunocompromised patient -Empiric cefepime -Panculture -Infectious disease consultation Hypertension -Hold antihypertensive meds due to possible sepsis -Resume when indicated History of pulmonary embolism -Continue Coumadin - dosing per pharmacy Non-Hodgkin lymphoma -Management per hematology oncology DVT GI prophylaxis -Rob's and SCDs -Coumadin -Pepcid Critical Care: The total critical care time was 35 minutes. Time to perform other separately billable procedures was not included in the critical care time. Gino Adler MD Jan 19, 2018 00:54
[2018-01-19] MEDS ORDERED: ACETAMINOPHEN 650 MG/20.3 ML UDC PO PRN (01:00)
[2018-01-19] MEDS ORDERED: ONDANSETRON HCL 4 MG/2 ML VIAL IV PUSH PRN (01:00)
[2018-01-19] MEDS ORDERED: RESP: ALBUTEROL 2.5 MG/IPRATROPIUM 0.5 MG NEB (PRN) NEB (01:00)
[2018-01-19 01:23] LABS: HEMATOCRIT 30.7 % (39.0-51.0); HEMOGLOBIN 9.9 GM/DL (13.0-17.0); MEAN CELL VOLUME 82.1 FL (80.0-100.0); MEAN CORPUSCULAR HEMOGLOBIN 26.4 PG (27.0-34.0); MEAN CORPUSCULAR HGB CONC 32.1 % (32.0-36.0); MEAN PLATELET VOLUME 8.1 FL (7.0-11.0); PLATELET COUNT 245 TH/MM3 (150-450); RED BLOOD COUNT 3.73 MIL/MM3 (4.50-5.90); RED CELL DISTRIBUTION WIDTH 21.7 % (11.6-17.2); WHITE BLOOD COUNT 8.4 TH/MM3 (4.0-11.0)
[2018-01-19] MEDS: CEFEPIME INJ 2,000 MG in SODIUM CHLORIDE 0.9% INJ 100 ML IV SCH ×3 (01:27→17:00)
[2018-01-19] MEDS: RESP: ALBUTEROL 2.5 MG/IPRATROPIUM 0.5 MG NEB (SCH) INH ×5 (03:24→19:49)
[2018-01-19] MEDS: CHLORHEXIDINE GLUCONATE 2 % 1 PACK (2 CLOTHS) TOP SCH (04:00)
[2018-01-19] MEDS: LEVOTHYROXINE SODIUM 25 MCG TAB PO SCH (06:00)
[2018-01-19 08:08] LABS: INTERNATIONAL NORMALIZED RATIO 2.2 RATIO; PROTHROMBIN TIME - PATIENT 22.4 SEC (9.8-11.6)
[2018-01-19] MEDS: ASPIRIN 81 MG CHEW TAB CHEW SCH (09:00)
[2018-01-19] MEDS: FAMOTIDINE 20 MG/2 ML VIAL IV PUSH SCH ×2 (09:00→21:51)
[2018-01-19] MEDS: CALCIUM CARBONATE 1.25 GM (CA 500 MG) TAB PO SCH (09:00)
[2018-01-19] MEDS: MORPHINE SULFATE 2 MG/ML SYRINGE IV PRN ×2 (09:53→15:38)
[2018-01-19] MEDS: SODIUM CHLORIDE 0.9% FLUSH 10 ML FLUSH IV FLUSH SCH ×2 (09:53→21:00)
[2018-01-19] MEDS ORDERED: HEPARIN SODIUM - SQ 10,000 UNITS/ML VIAL SQ SCH (12:00)
[2018-01-19] MEDS ORDERED: GLUCAGON 1 MG/ML VIAL OTHER PRN (12:30)
[2018-01-19] MEDS: INSULIN NovoLIN REGULAR SUPPLEMENTAL SCALE SQ SCH ×3 (12:30→20:30)
[2018-01-19] MEDS ORDERED: DEXTROSE 50% IN WATER 50 ML VIAL(D50) IV PUSH PRN (12:30)
--- NOTE | 2018-01-19 14:26 | PD.CONS ---
Consult Service Palliative Care Consult Requested By JITENDRA Dougherty. Primary Care Physician Unknown Reason for Consultation a. To assist with evaluation and management of symptoms including: Shortness of breath, debility. b. To assist medical decision maker(s) with: better understanding of current medical conditions; weighing benefits/burdens of medical treatment options; making medical treatment decisions. . HPI History of Present Illness Mr. 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 Patient presented to emergency room on 01/18/18 endorsing worsening shortness of breath and edema. Chest x-ray revealing basilar airspace disease and bilateral pleural effusions. Laboratory workup revealing WBC 8.2, Hgb 9.9, platelet count 238. Random glucose 40. Patient was admitted for further management of respiratory failure, sepsis on immunocompromised patient. He was placed on empiric cefepime and transfer to medical ICU for further monitoring and management. Infectious disease and pulmonology consulted. Thoracentesis pending given INR of 2.2, patient on Coumadin. Currently receiving FFP's. Palliative care consulted for clarification of goals of care given progression of disease and multiple lines of therapy. Patient with multiple recent hospitalizations secondary to ongoing clinical complications to include persistent malignant pericardial effusions, pleural effusions, pulmonary embolism, renal failure, bacterial endocarditis, cardiomyopathy, history of infected port with MRSA infection, profound physical deconditioning, severe protein-caloric malnutrition and C. difficile colitis. Patient no longer a candidate for further systemic therapy given poor performance status and additional complications. 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 Patient with extensive metastatic nail, cervical, bilateral axillary adenopathy in addition to mesenteric and retroperitoneal adenopathy. Biopsy of a left axillary lymph node indicating diffuse large B cell lymphoma. Patient has completed 5 cycles of Rituxan and EPOCH under the care of Dr. Connelly. Clinical course complicated by sepsis with bacterial endocarditis requiring discontinuation of chemotherapy. Patient with subsequent development of severe cardiomyopathy with EF in the 20s. His most recent PET scan showed progression of disease. Most recently on December 15 he started a new chemotherapy consisting of Rituxan with bendamustine. Clinical course further complicated in December secondary to heart failure, pericardial effusion and atrial fibrillation with RVR. On 12/30/17, patient underwent emergent Subxiphoid Pericardial Window with drainage of pericardial effusion and pericardial biopsy. Cytology positive for large cell lymphoma. Repeat echocardiogram revealing EF of 45-50% . Clinical course further complicated by hypoxia, hypotension and recurrent malignant pleural effusion requiring acute hospitalization from 01/11 to 01/17/18. Echocardiogram 01/11 revealing small pericardial effusion, left-sided pleural effusion, EF of 55%. Patient underwent right thoracentesis with removal of 1.4L, subsequent left thoracentesis with removal of 1.3L. Cardiac MRI 01/13/18 revealing 5.3 x 4.6 x 7.8 cm mediastinal mass lesion to the right and posterior of the left atrium. Clinical course further complicated by runs of wide- complex tachycardia and elevated troponin. Cardiology was consulted. Patient underwent cardiac cath on 01/15/18, no significant coronary artery disease found. Patient seen in medical ICU. Alert and oriented x self, place and situation. Patient known to palliative care services from previous admission in April 2017. Patient endorsing feeling very tired, dyspnea at rest and on minimal exertion. Increased work of breathing noted on O2 via nasal cannula at 2L. Patient declines pain, nausea vomiting or abdominal discomfort. He is severely cachectic, endorsing poor appetite and oral intake. Briefly discussed CODE STATUS given increased work of breathing noted. Patient verbalized considering no CODE STATUS, however, wishing to further discuss with his mother. Reviewed with patient that in the meantime he will be listed as full code, which would mean intubation and mechanical ventilation in the setting of respiratory distress. Patient verbalized understanding and agreement to this. Telephone conversation with patient's mother Oxana Seals who is healthcare surrogate decision maker. Medical update provided. Palliative care to meet with patient and his mother tomorrow for further clarifications of goals of care, time to be determined. Case discussed with bedside RN Leticia. . Function/Cognitive Trajectory Patient residing with parents prior to this hospitalization. He reports being independent with ambulation and ADLs. No cognitive deficit reported or observed. . Review of Systems Constitutional: COMPLAINS OF: Fatigue, Weight loss, Change in appetite, Generalized weakness, DENIES: Fever, Pain Endocrine: DENIES: Heat/cold intolerance Eyes: DENIES: Eye inflammation, Eye pain, Vision loss Ears, nose, mouth, throat: DENIES: Hearing loss, Hoarseness, Ear Pain, Running Nose, Epistaxis Respiratory: COMPLAINS OF: Shortness of breath Cardiovascular: COMPLAINS OF: Dyspnea on Exertion, Lower Extremity Edema, DENIES: Chest pain Gastrointestinal: DENIES: Abdominal pain, Bloody stools, Nausea, Vomiting, Difficulty Swallowing Genitourinary: DENIES: Urinary incontinence, Hematuria Musculoskeletal: DENIES: Muscle aches, Decreased range of motion Integumentary: DENIES: Abnormal pigmentation, Pruritus, Rash Hematologic/Lymphatics: DENIES: Bruising Immunologic/Allergic: DENIES: Eczema Neurologic: DENIES: Abnormal gait, Headache, Localized weakness, Seizures, Speech Problems Psychiatric: COMPLAINS OF: Anxiety, Depression, DENIES: Confusion, Hallucinations, Agitation Past Family Social History Coded Allergies: Milk Containing Products (Verified Allergy, Mild, diarrhea, 01/18/18) Past Medical History High-grade B-cell lymphoma Bacterial endocarditis Cardiomyopathy Anemia Severe protein-caloric malnutrition Hypertension Recurrent pleural effusions DVT History of C. difficile colitis History of atrial fibrillation with RVR . Past Surgical History Pericardial window 12/30/17 Right-sided chest MediPort placement Biopsy of lymph nodes . Reported Medications Levothyroxine (Levothyroxine Sodium) 25 Mcg Tab 25 Mcg PO DAILY@0600 Tgt Aspirin (Aspirin) 81 Mg Chw 81 Mg CHEW DAILY Metoprolol Tartrate 25 Mg Tab 12.5 Mg PO Q12HR Percocet (Oxycodone-Acetaminophen) 5-325 mg Tab 1 Tab PO Q6H PRN Protonix (Pantoprazole Sodium) 40 Mg Tab 40 Mg PO DAILY Calcium Carbonate 1,500 Mg Tab 1,500 Mg PO DAILY Coumadin (Warfarin) 3 Mg Tab 3 Mg PO DAILY@1600 . Current Medications Medications (Trade) Dose Ordered Sig/Shyla Route Start Time Stop Time Status Last Admin (Aspirin Chew) 81 mg DAILY CHEW 01/19/18 09:00 (Oscal) 1,500 mg DAILY PO 01/19/18 09:00 (Synthroid) 25 mcg DAILY@0600 PO 01/19/18 06:00 (Coumadin) 3 mg DAILY@1600 PO 01/19/18 16:00 (Coumadin Booklet) 1 ONCE ONCE .XX 01/19/18 16:00 01/19/18 16:01 (NS Flush) 2 ml UNSCH PRN IV FLUSH 01/19/18 00:45 (NS Flush) 2 ml BID IV FLUSH 01/19/18 09:00 01/19/18 09:53 (Pepcid Inj) 20 mg Q12HR IV PUSH 01/19/18 09:00 (Duoneb Neb) 1 ampule Q4HR NEB INH 01/19/18 04:00 01/19/18 11:29 (Duoneb Neb) 1 ampule Q2HR NEB PRN NEB 01/19/18 01:00 Cefepime HCl 2000 mg/Sodium Chloride 100 ml @ 200 mls/hr Q8H IV 01/19/18 01:00 01/19/18 01:27 Miscellaneous Information 1 [id number] XX 01/19/18 00:45 (Chlorhexidine 2% Cloth) 3 pack Taper DAILY@04 TOP 01/19/18 04:00 01/15/19 03:59 01/19/18 04:00 (Chlorhexidine 2% Cloth) 3 pack UNSCH PRN TOP 01/19/18 00:45 (Tylenol 650 Mg/ 20 ml Liq) 650 mg Q6H PRN PO 01/19/18 01:00 (Morphine Inj) 2 mg Q4H PRN IV 01/19/18 01:00 01/19/18 09:53 (Zofran Inj) 4 mg Q6HR PRN IV PUSH 01/19/18 01:00 Pharmacy Profile Note 0 ml @ 0 mls/hr UNSCH OTHER 01/19/18 06:00 Dextrose/Sodium Chloride 1,000 ml @ 75 mls/hr [id number] IV 01/19/18 12:30 (D50w (Vial) Inj) 50 ml UNSCH PRN IV PUSH 01/19/18 12:30 (Glucagon Inj) 1 mg UNSCH PRN OTHER 01/19/18 12:30 (NovoLIN R SUPPLEMENTAL SCALE) 1 Q4H SQ 01/19/18 12:30 Family History Patient denies any heart disease or cancer in his family. Patient has 8 children ages 27 to 7 who are alive and well. . Substance Use Tobacco: History of smoking 1 pack a day for 40 years. Quit January 2017. Alcohol: History of EtOH abuse. Average 8 beers daily. Quit January 2017. Prescription med abuse: Denies. Illicits: Denies. . Psychosocial History Patient was born and raised in [place], he lives with his mother. Patient is single, has 8 children (5 boys and 3 girls) ages 27 to 7 years old. 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 Highest level of education is eighth grade. No service. . Spiritual/Cultural Factors No druze affiliation. Living Will: Never completed Health Care Surrogate: Copy in medical record Date completed: 04/29/17. . Health Care Surrogate(s): HSC/mother Oxana Seals. Alternate surrogate -sister France Garcia. . Documented care wishes: No living will completed. . Today's verbally stated goals: Aggressive management. . Ethical and Legal Issues No ethical legal issues identified. . Physical Exam Vital Signs Date Time Temp Pulse Resp B/P (MAP) Pulse Ox O2 Delivery O2 Flow Rate FiO2 01/19/18 12:35 98.1 100 14 126/91 96 01/19/18 10:00 95 01/19/18 08:23 94 Nasal Cannula 2.00 01/19/18 08:00 98.1 93 18 126/91 (103) 97 01/19/18 08:00 93 01/19/18 06:00 91 01/19/18 04:00 92 01/19/18 04:00 97.6 92 22 132/94 (107) 96 01/19/18 03:24 99 Nasal Cannula 2.00 01/19/18 02:44 97.0 100 28 144/93 (110) 96 01/19/18 02:20 94 Nasal Cannula 3.00 01/19/18 02:19 97.6 98 20 143/97 (112) 96 Nasal Cannula 3.00 01/19/18 01:10 90 28 154/98 (116) 96 Nasal Cannula 4.00 01/18/18 23:48 97.5 89 20 131/95 (107) 96 Nasal Cannula 3.00 01/18/18 21:55 22 96 Nasal Cannula 3.00 01/18/18 21:40 96 Nasal Cannula 4.00 01/18/18 21:38 Nasal Cannula 4.00 01/18/18 21:36 98.6 90 28 139/95 (110) 92 01/19/18 01/20/18 19:00 07:00 Intake Total 20 ml Balance 20 ml Intake Blood Product IV Normal Saline Flush 20 ml Exam CONSTITUTIONAL/GENERAL: This is a severely cachectic male resting in bed in moderate distress secondary to increased work of breathing. Sleepy. TUBES/LINES/DRAINS: Nasal cannula, SKIN: No jaundice, rashes, or lesions. No wounds seen anteriorly. Skin temperature appropriate. Not diaphoretic. HEAD: Atraumatic. Normocephalic. EYES: Pupils equal and round and reactive. Extraocular motions intact. No scleral icterus. No injection or drainage. ENT: Hearing grossly normal. Nose without bleeding or purulent drainage. Moist oral mucosa. NECK: Trachea midline. Supple, nontender. CARDIOVASCULAR: Regular rate and rhythm without murmurs, gallops, or rubs. Edema to bilateral hands and ankles, left more than right. RESPIRATORY/CHEST: Symmetric, increased work of breathing. Clear to auscultation. GASTROINTESTINAL: Abdomen soft, non-tender, nondistended. No guarding. Bowel sounds present. GENITOURINARY: Without palpable bladder distension. MUSCULOSKELETAL: Extremities without clubbing, cyanosis. Muscle atrophy to all 4 extremities. NEUROLOGICAL: Awake and alert. Motor and sensory grossly within normal limits. Follows commands. Moves all extremities. Sleepy. PSYCHIATRIC: No obvious anxiety/depression. . Diagnostic Tests Laboratory Laboratory Tests Test 01/18/18 22:30 01/18/18 23:10 01/19/18 01:00 01/19/18 01:05 Prothrombin Time 21.6 SEC (9.8-11.6) Prothromb Time International Ratio 2.1 RATIO Activated Partial Thromboplast Time 33.1 SEC (24.3-30.1) 34.9 SEC (24.3-30.1) White Blood Count 8.2 TH/MM3 (4.0-11.0) 8.4 TH/MM3 (4.0-11.0) Red Blood Count 3.69 MIL/MM3 (4.50-5.90) 3.73 MIL/MM3 (4.50-5.90) Hemoglobin 9.9 GM/DL (13.0-17.0) 9.9 GM/DL (13.0-17.0) Hematocrit 30.1 % (39.0-51.0) 30.7 % (39.0-51.0) Mean Corpuscular Volume 81.6 FL (80.0-100.0) 82.1 FL (80.0-100.0) Mean Corpuscular Hemoglobin 26.9 PG (27.0-34.0) 26.4 PG (27.0-34.0) Mean Corpuscular Hemoglobin Concent 32.9 % (32.0-36.0) 32.1 % (32.0-36.0) Red Cell Distribution Width 21.7 % (11.6-17.2) 21.7 % (11.6-17.2) Platelet Count 238 TH/MM3 (150-450) 245 TH/MM3 (150-450) Mean Platelet Volume 8.3 FL (7.0-11.0) 8.1 FL (7.0-11.0) Neutrophils (%) (Auto) 91.4 % (16.0-70.0) Lymphocytes (%) (Auto) 3.2 % (9.0-44.0) Monocytes (%) (Auto) 4.9 % (0.0-8.0) Eosinophils (%) (Auto) 0.0 % (0.0-4.0) Basophils (%) (Auto) 0.5 % (0.0-2.0) Neutrophils # (Auto) 7.5 TH/MM3 (1.8-7.7) Lymphocytes # (Auto) 0.3 TH/MM3 (1.0-4.8) Monocytes # (Auto) 0.4 TH/MM3 (0-0.9) Eosinophils # (Auto) 0.0 TH/MM3 (0-0.4) Basophils # (Auto) 0.0 TH/MM3 (0-0.2) CBC Comment DIFF FINAL Differential Comment Blood Urea Nitrogen 20 MG/DL (7-18) Creatinine 1.76 MG/DL (0.60-1.30) Random Glucose 40 MG/DL (74-106) Total Protein 5.9 GM/DL (6.4-8.2) Albumin 3.1 GM/DL (3.4-5.0) Calcium Level 8.8 MG/DL (8.5-10.1) Alkaline Phosphatase 135 U/L (45-117) Aspartate Amino Transf (AST/SGOT) 28 U/L (15-37) Alanine Aminotransferase (ALT/SGPT) 8 U/L (12-78) Total Bilirubin 0.6 MG/DL (0.2-1.0) Sodium Level 142 MEQ/L (136-145) Potassium Level 4.2 MEQ/L (3.5-5.1) Chloride Level 109 MEQ/L (98-107) Carbon Dioxide Level 16.3 MEQ/L (21.0-32.0) Anion Gap 17 MEQ/L (5-15) Estimat Glomerular Filtration Rate 50 ML/MIN (>89) Total Creatine Kinase 109 U/L (39-308) Creatine Kinase MB 2.0 NG/ML (0.5-3.6) Troponin I 0.49 NG/ML (0.02-0.05) Lactic Acid Level 1.8 mmol/L (0.4-2.0) C-Reactive Protein 14.70 MG/DL (0.00-0.30) Test 01/19/18 02:50 01/19/18 07:49 Nasal Screen MRSA (PCR) MRSA DETECTED (NOT DETECT) Prothrombin Time 22.4 SEC (9.8-11.6) Prothromb Time International Ratio 2.2 RATIO Result Diagram: 01/19/1810401/18/180 Microbiology Microbiology Date/Time Source Procedure Growth Status 01/19/18 01:10 Blood Peripheral Aerobic Blood Culture Pending Received 01/19/18 01:10 Blood Peripheral Anaerobic Blood Culture Pending Received 01/19/18 01:05 Blood Peripheral Aerobic Blood Culture Pending Received 01/19/18 01:05 Blood Peripheral Anaerobic Blood Culture Pending Received Imaging Last Impressions Chest X-Ray 01/18/18 [id number] Signed Impressions: Service Date/Time: Thursday, January 18, 2018 22:02 - CONCLUSION: 1. Basilar airspace disease and pleural effusions. No pneumothorax. [id number] in right atrium. Travis Ruffin MD Patient/Family Conference Present at Family Conference: Patient and mother Oxana Seals. . Family Conference Time (mins): 34 Family Conference Location: Bedside, Telephone Issues Discussed: * Palliative care role, purpose, approach * Additional medical, psychosocial, and spiritual history * Patients general health, functional status, and cognitive changes in the months leading up to the current hospitalization * Patient/family understanding of the current medical problems * Patient/family understanding of prognosis * Patients goals of care as best understood from advance directives and/or conversations and/or values * Questions answered to the best of my ability * Palliative care contact information provided * Risks, benefits and limitations of CPR, intubation and mechanical ventilation . Assessment and Plan Disease Oriented Problem List: (1) Respiratory failure (2) Sepsis (3) Non-Hodgkin lymphoma (4) Severe protein-calorie malnutrition (5) Cachexia (6) Physical deconditioning Symptom Scale: (1) Shortness of breath 0-10 Scale: 7 (2) Debility 0-10 Scale: Unable to quantify Pertinent Non-Medical Issues Psychosocial: Patient was born and raised in [place], he lives with his mother. Patient is single, has 8 children (5 boys and 3 girls) ages 27 to 7 years old. 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 Highest level of education is eighth grade. No service. Spiritual: Legal: Ethical issues impacting care: Important Contacts Mother/[facility] Oxana Seals Sister/alternate HCS Yuli Garcia . Prognosis Mr. 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 Patient with multiple recent hospitalizations secondary to ongoing clinical complications to include persistent malignant pericardial effusions, pleural effusions, pulmonary embolism, renal failure, bacterial endocarditis, cardiomyopathy, history of infected port with MRSA infection, profound physical deconditioning, severe protein-caloric malnutrition and C. difficile colitis. Patient with progression of disease on multiple lines of treatment, currently no longer a candidate for further systemic therapy given poor performance status and additional complications. Patient a very high risk for further complications, continued decline and . Patient appears hospice appropriate if he elects comfort-directed care. . Code Status: Full Code Plan * CODE STATUS: Full code. Patient verbalized considering NO code status, however , wishing to further discuss with his mother. Reviewed with patient that he is currently a full code by default, which would mean intubation and mechanical ventilation in the setting of respiratory distress/failure. Patient verbalized understanding and agreement to this. * HEALTHCARE DECISION-MAKING: Patient participating in medical decision making. He appears to have a fair understanding of his clinical condition and retains the ability to weigh benefits versus burdens of treatment options. Advanced directives completed. Patient has elected his mother Oxana Seals as healthcare surrogate decision maker, alternate surrogate his sister France Garcia. * GOALS OF CARE: Goals of care not addressed during my visit given moderate respiratory distress with increased work of breathing. Patient verbalized not feeling well, feeling very tired -pending thoracentesis. Patient verbalized considering NO code status, however, wishing to further discuss with his mother. Reviewed with patient that he is currently a full code by default, which would mean intubation and mechanical ventilation in the setting of respiratory distress/failure. Patient verbalized understanding and agreement to this. Patient receptive to palliative care follow-up for further clarification of goals of care, family meeting arranged with patient and his mother for tomorrow Thursday01/20/18, time to be determined. * SYMPTOMS: = Dyspnea: Secondary to recurrent pleural effusions. Pending thoracentesis. = Debility: Progressive. Patient with poor functional status, severe protein-caloric malnutrition. Patient is severely cachectic. Debility likely to continue to worsen his given progression of disease. * Case discussed with JITENDRA Dougherty and bedside RN Leticia. * Palliative care contact information has been provided to patient and family. * Palliative care will continue to follow up for further clarification of goals of care as patient's clinical course continues to evolve. . Time Spent Total Floor Time (mins): 68 (Total time to include review and summarization of available medical records to include multiple prior hospitalizations, physical exam, goals of care conversation with patient, telephone conversation with patient's mother, case discussion with oncology and bedside RN.) >50% Counseling/Coord of Care: Yes Thank you for the opportunity to participate in the care of Mr. Werner. Attestation To help prompt me to consider important information that might be impacting today's encounter and assessment, information from prior notes written by myself or my colleagues may have been "brought forward" into today's note. My signature on this note, however, is an attestation that I personally performed the exam, history, and/or decision-making noted today, and, unless otherwise indicated, the interactions with patient, family, and staff as well as the review of records all occurred today. I also attest that the listed assessment and stated plan reflect my best clinical judgment today based on the combination of historical information, prior notes, and today's exam/ interactions. When time spent is documented, it refers only to time spent today by the signer, or if indicated, combined time spent today by collaborating physician/nurse practitioner. Demetrice Brody Jan 19, 2018 14:26
--- NOTE | 2018-01-19 15:15 | MB ---
cc: Ruslan Connelly MD DATE: 01/19/2018 Corrected Copy: 01/20/18 ATTENDING PHYSICIAN: Dr. Adler REASON FOR CONSULTATION: Oncology consulted to render opinion in a patient with lymphoma, admitted with shortness of breath. 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 He had extensive mediastinal, cervical, bilateral axillary adenopathy. He also has extensive mesenteric and retroperitoneal adenopathy. Biopsy of the left axillary lymph node showed diffuse large B-cell lymphoma with Triple Hit. He completed 5 cycles of Rituxan and EPOCH chemotherapy, but had to stop due to when he developed sepsis with bacterial endocarditis. He subsequently developed severe cardiomyopathy with an ejection fraction of around 20. The chemotherapy had to be stopped, but he developed progression of disease shortly after stopping chemotherapy. He received 1 cycle of Rituxan and bendamustine on 12/15/2017. He was admitted to the hospital on 12/30/2017 when he was found to have a large pericardial effusion with possible cardiac tamponade. He had a subxiphoid window procedure. The pericardial fluid cytology and pleural biopsy showed lymphoma. He was admitted to the hospital again last week with shortness of breath. He was found to have bilateral pleural effusions. He had bilateral thoracentesis and pleural fluid cytology also positive for lymphoma. He was just discharged 2 days ago. He started having increased shortness of breath again yesterday and came back to the emergency room. He is complaining of increased shortness of breath, worse when lying down. He has no significant cough. He has pain in the chest wall. He is complaining of increased weakness. He has decreased appetite and lost more weight. He denies any palpitations. He denies any nausea or vomiting. He denies any abdominal pain, dysuria or hematuria. He denies any rash or pruritus. When he presented to the hospital he was hypoxic and was admitted to the intensive care unit. PAST MEDICAL HISTORY: 1. High grade B-cell lymphoma. 2. Malignant pericardial effusion. 3. Malignant pleural effusion. 4. Hypertension. 5. Pulmonary embolism. 6. Renal failure. 7. Bacterial endocarditis. 8. Cardiomyopathy. 9. Pleural effusion. 10. Infected port. 11. History of methicillin-resistant Staphylococcus aureus infection. 12. History of Clostridium difficile colitis. PAST SURGICAL HISTORY: Port placement, bone marrow biopsy, left axillary lymph node resection, subxiphoid window procedure, bilateral thoracentesis. FAMILY HISTORY: He has 5 brothers and 3 sisters. No cancer in the family. SOCIAL HISTORY: Stopped smoking June 2017. He also stopped drinking alcohol. He lives with his mother. ALLERGIES: NO KNOWN DRUG ALLERGIES. CURRENT MEDICATIONS: 1. Warfarin. 2. Aspirin. 3. Os-Gilberto. 4. Pepcid. 5. Levothyroxine. REVIEW OF SYSTEMS: CONSTITUTIONAL: As above. EYES: Negative. ENT: Negative. CARDIOVASCULAR: As above. RESPIRATORY: As above. GASTROINTESTINAL: Denies any nausea, vomiting, diarrhea or abdominal pain. GENITOURINARY: No dysuria, hematuria. MUSCULOSKELETAL: Denies any bone pain or muscle pain. HEMATOLOGIC: Negative. ENDOCRINE: Negative. DERMATOLOGIC: Negative. PSYCHIATRIC: Negative. NEUROLOGIC: Negative. PHYSICAL EXAMINATION: VITAL SIGNS: Temperature 98.1, blood pressure 126/91, O2 saturation 97%. GENERAL: He is alert, oriented x3, looks cachectic. HEENT: Atraumatic, normocephalic. Pupils are equal, round, reactive to light. Extraocular muscles intact. No scleral icterus. Oropharynx: Dry mucosa, no lesions. NECK: No thyromegaly. LYMPHATICS: Palpable right supraclavicular lymph node seems bigger. He has bilateral axillary lymph nodes. No inguinal adenopathy. CARDIOVASCULAR: Regular S1, S2. No murmurs. LUNGS: Decreased breath sounds at the lung bases. ABDOMEN: Soft, nontender. Cannot palpate liver or spleen. EXTREMITIES: No cyanosis or clubbing. He has 2+ bilateral ankle edema. No calf tenderness. BACK: No paravertebral tenderness. SKIN: No rash. NEUROLOGIC: Nonfocal. LABORATORY DATA: WBC 8.4, hemoglobin 9.9, platelet count 245. INR 2.2. Creatinine 1.76. ASSESSMENT: 1. Diffuse large B cell lymphoma with triple HIT. He has a high risk lymphoma. He had five cycles of Rituxan and EPOCH with partial response. Chemotherapy was stopped when he developed sepsis and bacterial endocarditis. He subsequently developed severe cardiomyopathy with ejection fraction around 25% and cannot continue with the chemotherapy. He developed progression of disease shortly after stopping chemotherapy. PET scan showed increase adenopathy in the mediastinum extending along the paraspinous region down to the abdomen. There was also uptake in the gastroesophageal junction area down to the angel hepatis. There was increased retroperitoneal adenopathy and a few pulmonary nodules. He had one cycle or Rituxan and bendamustine on December 15, 2017. He seemed to have partial response when I saw him last week. The supraclavicular lymph node seemed to have gotten smaller, but today it seems bigger again. He had a CT scan last week, which again showed large mediastinal adenopathy. He was found to have bilateral pleural effusion during last visit and had bilateral thoracentesis. Pleural fluid again showed lymphoma. He now represented with shortness of breath and reaccumulation of pleural effusion. His performance status is declining rapidly. He has previously refused to go to a tertiary center to consider bone marrow transplant, with his weakened condition I do not think he will be a candidate for a transplant at this time. His overall prognosis is poor. I had a long discussion with patient regarding continued treatment versus best supportive care with hospice. I told him he will likely not tolerate chemotherapy well and chances of responding to the next line of chemotherapy is going to be small. I am going to consult palliative care medicine and patient agrees. We also talked about living will and DNR issue, but he wants more time to think over his options. 2. Bilateral pleural effusion. He had bilateral thoracentesis last week and cytology was positive for lymphoma. Effusion has reaccumulated. 3. Malignant pericardial effusion, status post subxiphoid window procedure. 4. Cardiomyopathy, which developed after bacterial endocarditis. He recently had a repeat echocardiogram, which showed ejection fraction had trended back up to 55%. 5. History of bacterial endocarditis. 6. History pulmonary embolism. He is on Coumadin. INR is therapeutic. PLAN: 1. Extensive discussion with the patient as above. 2. He may need a thoracentesis again. 2. Consult Palliative Care Medicine. 3. Continue supportive care. Thank you Dr. Adler for asking me to see this patient. MD MELA Balbuena/RADHA , 02:14 PM , 03:14 PM [facility]
--- NOTE | 2018-01-19 15:54 | MB ---
cc: Bryant Reyna MD DATE: 01/19/2018 DATE OF CONSULTATION: 01/19/2018 REQUESTING PHYSICIAN: Dr. Adler REASON: Sepsis and neutropenia. HISTORY OF PRESENT ILLNESS: This is a 47-year-old black male who was diagnosed with high-grade non-Hodgkin's lymphoma. The patient has undergone chemotherapy. He was recently admitted to the hospital and discharged on 01/17/2018. The patient developed shortness of breath and was admitted today. He is noted to have bilateral pleural effusions which is greater on the right. The patient underwent for prior thoracentesis during the last hospitalization. The cytology revealed large numbers of atypical lymphocytes consistent with lymphoma. Culture of the fluid was negative. The patient is afebrile. His white blood cell count is normal. His only complaint to me currently is that his back hurts. He is on oxygen via nasal cannula. Chest x-ray performed yesterday showed bibasilar airspace disease and pleural effusions. Blood culture has been taken. This consultation is requested for neutropenia and neutropenic sepsis. The patient's white blood cell count is 8.4. During the recent hospitalization, his white blood cell count was normal. His temperature was mostly normal except for one mildly elevated temperature of 99.8 degrees which occurred on 01/13/2018. The patient is easily arousable and alert. He is in moderate distress because of pain in his back, but otherwise denies other symptoms. PAST MEDICAL HISTORY: 1. 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 The patient completed treatment in October 2017. Status post chemotherapy. Infusaport removed in 08/29/2017 due to infection (MRSA). 2. History of Clostridium difficile colitis. ALLERGIES: NO KNOWN DRUG ALLERGIES. MEDICATIONS: 1. Synthroid. 2. DuoNeb. 3. Cefepime. 4. Morphine sulfate p.r.n. 5. Coumadin. SOCIAL HISTORY: No tobacco, no alcohol, no illicit drugs. FAMILY HISTORY: Noncontributory. REVIEW OF SYSTEMS: Negative on a 10-point review except for back pain. PHYSICAL EXAMINATION: GENERAL: This is a slender male who is in no acute distress. He is awake and alert. VITAL SIGNS: Temperature 98.1, BP 119/87, heart rate 99, respirations 18. HEENT: Head atraumatic. Extraocular movements grossly intact. Pupils reactive to light. No icterus. Oropharynx: Moist mucosa without lesions. No thrush. NECK: Supple without adenopathy. LUNGS: Clear breath sounds bilaterally. The breath sounds are decreased. HEART: Regular S1 and S2, without murmurs. ABDOMEN: Bowel sounds present. Soft, nontender. RECTAL: Not performed. EXTREMITIES: Trace edema of the lower extremities. SKIN: No rash. PSYCHIATRIC: The patient is calm and cooperative. NEUROLOGIC: No gross focal findings. LABORATORY DATA: WBC 8.4, platelets 245, hemoglobin 9.9. Creatinine 1.76, BUN 20, estimated GFR 50. AST 28, ALT. C-reactive protein elevated at 14.7. IMPRESSION: High grade B-cell lymphoma. The patient's white blood cell count is normal and he has no fever at this time. No clear evidence of infection in this patient at this time. Blood cultures are pending from earlier today. The patient is status post chemotherapy and potentially could develop neutropenia at some point. I recommend continuing the cefepime for now and monitor him clinically and, if he has elevated temperature, further evaluation for infection can proceed if the current blood cultures remain negative. Thank you for this consultation. MD MATTEO Hernandez/SB , 03:11 PM , 03:53 PM
[2018-01-19] MEDS: WARFARIN SOD 3 MG TAB PO SCH (16:00)
[2018-01-19] MEDS: DEXT 5%-NACL 0.9% 1000 ML INJ 1,000 ML IV SCH (17:30)
--- NOTE | 2018-01-19 19:08 | MB ---
cc: Monique Amaya MD DATE: 01/19/2018 REASON FOR CONSULTATION: Bilateral pleural effusion. HISTORY OF PRESENT ILLNESS: Mr. Werner is a 47-year-old male with known history of non-Hodgkin lymphoma, concluded radiation as well as chemotherapy. The patient recently in the hospital and discharged. He does have multiple medical problems including MRSA endocarditis. He has no fever at present. No cough, no expectoration. He is generally weak and cachectic. Previous thoracentesis during his last hospitalization was with negative culture as well as cytology. Chest x-ray upon presentation is with bibasilar atelectatic change and airspace disease, possibly atelectasis as well. He has been seen by infectious disease for possible underlying infection. The patient is on antibiotic therapy. PAST MEDICAL HISTORY: High-grade B cell lymphoma, history of hypertension, cardiomyopathy, bilateral pleural effusions, previous MRSA endocarditis, had C. difficile colitis in the past. MEDICATIONS: Include cefepime, DuoNeb, Synthroid, morphine as needed as well as Coumadin. SOCIAL HISTORY: Does not smoke, does not drink, does not use drugs. FAMILY HISTORY: Noncontributory. REVIEW OF SYSTEMS: A 12-point review of systems as per HPI and past history, otherwise negative. PHYSICAL EXAMINATION: GENERAL: The patient is alert. VITAL SIGNS: Temperature 98, pulse 90, respirations 22, blood pressure 120/90, oxygen saturation 97% on O2 via nasal cannula. HEENT: Unremarkable. Eyes without icterus. NECK: No adenopathy. No thyroid enlargement. CHEST: Decreased breath sounds at bases. CARDIAC: PMI not appreciated. S1, S2 audible. No murmur. No rub. ABDOMEN: Lax, bowel sounds audible. EXTREMITIES: No clubbing, cyanosis or edema. LABORATORY DATA: White count 10.4, hemoglobin 9.9, hematocrit 30.7, platelets 245,000. INR 2.2. Sodium 142, potassium 4.2, BUN 20, creatinine 1.7. IMPRESSION: 1. Small bilateral pleural effusions, underlying infiltrates and/or atelectatic change. 2. High-grade B cell lymphoma, post radiation and chemotherapy. 3. Hypothyroidism, on replacement therapy. 4. Hypertension. 5. Pulmonary embolism. 6. Cardiomyopathy. 7. History of bacterial endocarditis. PLAN: The patient is severely cachectic and weak at present. His pleural effusions do not require repeat thoracentesis. Previous ones have shown no infection. The etiology of the effusions is probably the generalized cachexia as well as evidence of underlying cardiomyopathy. The patient is in the process of deciding whether he wishes to pursue aggressive therapy in the future or approach palliative care. We will follow his course along with you and depending on his progress, would plan for further intervention and care. I do thank you for asking me to partake in Mr. Werner' care. Monique Amaya MD WWW/RADHA , 06:44 PM , 07:07 PM
[2018-01-19 19:25] LABS: ALBUMIN 3.3 GM/DL (3.4-5.0); AST (GOT) 28 U/L (15-37); BICARBONATE 19.4 MEQ/L (21.0-32.0); BLOOD UREA NITROGEN 19 MG/DL (7-18); CALCIUM 8.9 MG/DL (8.5-10.1); CREATININE 1.83 MG/DL (0.60-1.30); GLOMERULAR FILTRATION RATE 48 ML/MIN (>89); GLUCOSE,RANDOM 72 MG/DL (74-106); INTERNATIONAL NORMALIZED RATIO 1.7 RATIO; PROTHROMBIN TIME - PATIENT 17.5 SEC (9.8-11.6)
[2018-01-19 19:27] LABS: ALT (GPT) 10 U/L (12-78)
[2018-01-19 19:30] LABS: ALKALINE PHOSPHATASE 128 U/L (45-117); TOTAL BILIRUBIN ADULT 0.7 MG/DL (0.2-1.0); TOTAL PROTEIN 6.3 GM/DL (6.4-8.2); TROPONIN I 0.41 NG/ML (0.02-0.05)
[2018-01-19 19:33] LABS: CHLORIDE 110 MEQ/L (98-107); SODIUM (NA) 145 MEQ/L (136-145)
[2018-01-20] VITALS (17 sets, daily range): BP systolic 107–146; BP diastolic 78–89; PULSE 93–106; RESP 18–37; TEMP 97.8–98.3; O2SAT 54–99
[2018-01-20] MEDS: INSULIN NovoLIN REGULAR SUPPLEMENTAL SCALE SQ SCH ×6 (00:08→20:16)
[2018-01-20] MEDS: CEFEPIME INJ 2,000 MG in SODIUM CHLORIDE 0.9% INJ 100 ML IV SCH ×3 (00:08→17:00)
[2018-01-20] MEDS: RESP: ALBUTEROL 2.5 MG/IPRATROPIUM 0.5 MG NEB (SCH) INH ×6 (00:27→20:35)
[2018-01-20] MEDS: DEXT 5%-NACL 0.9% 1000 ML INJ 1,000 ML IV SCH ×2 (01:50→15:10)
[2018-01-20] MEDS: CHLORHEXIDINE GLUCONATE 2 % 1 PACK (2 CLOTHS) TOP SCH (04:00)
[2018-01-20] MEDS: MORPHINE SULFATE 2 MG/ML SYRINGE IV PRN ×4 (04:59→20:21)
[2018-01-20] MEDS: LEVOTHYROXINE SODIUM 25 MCG TAB PO SCH (05:45)
[2018-01-20 07:39] LABS: BASOPHIL % 0.3 % (0.0-2.0); HEMOGLOBIN 8.7 GM/DL (13.0-17.0); LYMPH % 4.9 % (9.0-44.0); LYMPHOCYTE # 0.3 TH/MM3 (1.0-4.8); MEAN CELL VOLUME 82.6 FL (80.0-100.0); MEAN CORPUSCULAR HEMOGLOBIN 27.6 PG (27.0-34.0); MEAN CORPUSCULAR HGB CONC 33.4 % (32.0-36.0); MEAN PLATELET VOLUME 8.3 FL (7.0-11.0); MONO % 5.3 % (0.0-8.0); MONOCYTE # 0.4 TH/MM3 (0-0.9); NEUT % 89.5 % (16.0-70.0); PLATELET COUNT 208 TH/MM3 (150-450); RED BLOOD COUNT 3.15 MIL/MM3 (4.50-5.90); RED CELL DISTRIBUTION WIDTH 22.2 % (11.6-17.2); WHITE BLOOD COUNT 6.7 TH/MM3 (4.0-11.0)
[2018-01-20 07:43] LABS: INTERNATIONAL NORMALIZED RATIO 1.8 RATIO; PROTHROMBIN TIME - PATIENT 18.3 SEC (9.8-11.6)
[2018-01-20 08:01] LABS: ALBUMIN 3.1 GM/DL (3.4-5.0); AST (GOT) 26 U/L (15-37); BICARBONATE 17.9 MEQ/L (21.0-32.0); BLOOD UREA NITROGEN 19 MG/DL (7-18); CALCIUM 8.6 MG/DL (8.5-10.1); CHLORIDE 113 MEQ/L (98-107); CREATININE 1.88 MG/DL (0.60-1.30); GLOMERULAR FILTRATION RATE 46 ML/MIN (>89); GLUCOSE,RANDOM 109 MG/DL (74-106); SODIUM (NA) 144 MEQ/L (136-145)
[2018-01-20 08:07] LABS: ALKALINE PHOSPHATASE 123 U/L (45-117); ALT (GPT) 9 U/L (12-78); TOTAL BILIRUBIN ADULT 0.6 MG/DL (0.2-1.0); TOTAL PROTEIN 6.2 GM/DL (6.4-8.2); TROPONIN I 0.46 NG/ML (0.02-0.05)
[2018-01-20] MEDS: CALCIUM CARBONATE 1.25 GM (CA 500 MG) TAB PO SCH (09:00)
[2018-01-20] MEDS: ASPIRIN 81 MG CHEW TAB CHEW SCH (09:00)
[2018-01-20] MEDS: FAMOTIDINE 20 MG/2 ML VIAL IV PUSH SCH ×2 (09:02→20:15)
[2018-01-20] MEDS: SODIUM CHLORIDE 0.9% FLUSH 10 ML FLUSH IV FLUSH SCH ×2 (09:02→20:15)
--- NOTE | 2018-01-20 11:28 | HHI.HCPN ---
Reason for visit a. To assist with evaluation and management of symptoms including: Shortness of breath, debility. b. To assist medical decision maker(s) with: better understanding of current medical conditions; weighing benefits/burdens of medical treatment options; making medical treatment decisions. . Subjective/Interval History Patient seen in medical ICU. Alert and oriented x self, place and situation. Patient endorsing shortness of breath at rest and generalized weakness. Increased work of breathing noted on 2 L nasal cannula. Patient remains afebrile, stable hemodynamically. Laboratory workup today revealing stable Hgb at 8.7. He was transfused 2 units of FFP's yesterday. Infectious disease, Dr. Abrams following. Pulmonology, Dr. Amaya consulted yesterday secondary to recurrent pleural effusions. Plan for thoracentesis today. Met with patient, his mother Oxana Seals and his brother Aramis. Medical update provided. Reviewed at length patient's past medical history and clinical course since diagnosis of B-cell lymphoma in April 2017. Reviewed progression of disease status post chemotherapy. Reviewed at length multiple complications to include recent malignant pericardial effusions, recurrent pleural effusions, history of pulmonary embolism, history of renal failure requiring renal replacement therapy, bacterial endocarditis, cardiomyopathy, history of infected port with MRSA infection, profound physical deconditioning, severe protein-caloric malnutrition and C. difficile colitis. Discussed that patient is no longer a candidate for further systemic therapy given poor performance status and above mentioned complications. Discussed continuation of aggressive management vs transition to comfort-directed care given overall poor prognosis. Introduce hospice philosophy and benefits. Patient supported by his family has elected to transition to comfort-directed care with hospice, likely to discharge to hospice care center for symptom management of dyspnea. As per patient, ultimate goal is to return home with hospice, patient wishing for peaceful at home. Patient electing DNR/DNI, community DNR signed. Case discussed with Brenda HAM, hospice admissions nurse and bedside RN Leticia. . Family/friend interactions See interval note. . Advance Directives Living Will: Never completed Health Care Surrogate: Copy in medical record Advance Directive Specifics Date completed: 04/29/17. . Health Care Surrogate(s): HSC/mother Oxana Seals. Alternate surrogate -sister France Garcia. . Documented care wishes: No living will completed. . Significant change in goals: Patient electing comfort-directed care with hospice. . Objective Vital Signs Date Time Temp Pulse Resp B/P (MAP) Pulse Ox O2 Delivery O2 Flow Rate FiO2 01/20/18 10:00 95 01/20/18 09:00 100 01/20/18 08:45 96 Nasal Cannula 2.00 01/20/18 08:00 98.0 94 22 107/79 (88) 97 01/20/18 08:00 94 01/20/18 07:00 94 01/20/18 04:00 96 01/20/18 04:00 98.1 96 20 146/84 (104) 54 01/20/18 02:00 100 01/20/18 00:00 98.3 101 22 127/81 (96) 98 01/20/18 00:00 101 01/19/18 22:00 113 01/19/18 20:00 100 01/19/18 20:00 98.1 100 35 132/90 (104) 98 01/19/18 19:49 96 Nasal Cannula 2.00 01/19/18 18:00 98 01/19/18 17:00 97 01/19/18 16:00 105 01/19/18 16:00 98.5 105 33 125/92 (103) 93 01/19/18 15:14 98.3 97 24 125/93 97 01/19/18 15:00 98.3 97 26 112/90 96 01/19/18 15:00 97 01/19/18 14:00 98 01/19/18 12:50 98.1 100 16 122/81 98 01/19/18 12:35 98.1 100 14 126/91 96 01/19/18 12:00 100 01/19/18 12:00 98.3 100 18 126/91 (103) 97 Intake & Output 01/20/18 01/20/18 07:00 19:00 Intake Total 1000 ml Balance 1000 ml Intake IV Total 1000 ml Physical Exam CONSTITUTIONAL/GENERAL: This is a severely cachectic male resting in bed in moderate distress secondary to increased work of breathing. Sleepy. TUBES/LINES/DRAINS: Nasal cannula, SKIN: No jaundice, rashes, or lesions. No wounds seen anteriorly. Skin temperature appropriate. Not diaphoretic. HEAD: Atraumatic. Normocephalic. EYES: Pupils equal and round and reactive. Extraocular motions intact. No scleral icterus. No injection or drainage. ENT: Hearing grossly normal. Nose without bleeding or purulent drainage. Moist oral mucosa. NECK: Trachea midline. Supple, nontender. CARDIOVASCULAR: Regular rate and rhythm without murmurs, gallops, or rubs. Edema to bilateral hands and ankles, left more than right. RESPIRATORY/CHEST: Symmetric, increased work of breathing. Clear to auscultation. GASTROINTESTINAL: Abdomen soft, non-tender, nondistended. No guarding. Bowel sounds present. GENITOURINARY: Without palpable bladder distension. MUSCULOSKELETAL: Extremities without clubbing, cyanosis. Muscle atrophy to all 4 extremities. NEUROLOGICAL: Awake and alert. Motor and sensory grossly within normal limits. Follows commands. Moves all extremities. Sleepy. PSYCHIATRIC: No obvious anxiety/depression. . Diagnostic Tests Laboratory Laboratory Tests Test 01/18/18 22:30 01/18/18 23:10 01/19/18 01:00 01/19/18 01:05 Prothrombin Time 21.6 SEC (9.8-11.6) Prothromb Time International Ratio 2.1 RATIO Activated Partial Thromboplast Time 33.1 SEC (24.3-30.1) 34.9 SEC (24.3-30.1) White Blood Count 8.2 TH/MM3 (4.0-11.0) 8.4 TH/MM3 (4.0-11.0) Red Blood Count 3.69 MIL/MM3 (4.50-5.90) 3.73 MIL/MM3 (4.50-5.90) Hemoglobin 9.9 GM/DL (13.0-17.0) 9.9 GM/DL (13.0-17.0) Hematocrit 30.1 % (39.0-51.0) 30.7 % (39.0-51.0) Mean Corpuscular Volume 81.6 FL (80.0-100.0) 82.1 FL (80.0-100.0) Mean Corpuscular Hemoglobin 26.9 PG (27.0-34.0) 26.4 PG (27.0-34.0) Mean Corpuscular Hemoglobin Concent 32.9 % (32.0-36.0) 32.1 % (32.0-36.0) Red Cell Distribution Width 21.7 % (11.6-17.2) 21.7 % (11.6-17.2) Platelet Count 238 TH/MM3 (150-450) 245 TH/MM3 (150-450) Mean Platelet Volume 8.3 FL (7.0-11.0) 8.1 FL (7.0-11.0) Neutrophils (%) (Auto) 91.4 % (16.0-70.0) Lymphocytes (%) (Auto) 3.2 % (9.0-44.0) Monocytes (%) (Auto) 4.9 % (0.0-8.0) Eosinophils (%) (Auto) 0.0 % (0.0-4.0) Basophils (%) (Auto) 0.5 % (0.0-2.0) Neutrophils # (Auto) 7.5 TH/MM3 (1.8-7.7) Lymphocytes # (Auto) 0.3 TH/MM3 (1.0-4.8) Monocytes # (Auto) 0.4 TH/MM3 (0-0.9) Eosinophils # (Auto) 0.0 TH/MM3 (0-0.4) Basophils # (Auto) 0.0 TH/MM3 (0-0.2) CBC Comment DIFF FINAL Differential Comment Blood Urea Nitrogen 20 MG/DL (7-18) Creatinine 1.76 MG/DL (0.60-1.30) Random Glucose 40 MG/DL (74-106) Total Protein 5.9 GM/DL (6.4-8.2) Albumin 3.1 GM/DL (3.4-5.0) Calcium Level 8.8 MG/DL (8.5-10.1) Alkaline Phosphatase 135 U/L (45-117) Aspartate Amino Transf (AST/SGOT) 28 U/L (15-37) Alanine Aminotransferase (ALT/SGPT) 8 U/L (12-78) Total Bilirubin 0.6 MG/DL (0.2-1.0) Sodium Level 142 MEQ/L (136-145) Potassium Level 4.2 MEQ/L (3.5-5.1) Chloride Level 109 MEQ/L (98-107) Carbon Dioxide Level 16.3 MEQ/L (21.0-32.0) Anion Gap 17 MEQ/L (5-15) Estimat Glomerular Filtration Rate 50 ML/MIN (>89) Total Creatine Kinase 109 U/L (39-308) Creatine Kinase MB 2.0 NG/ML (0.5-3.6) Troponin I 0.49 NG/ML (0.02-0.05) Lactic Acid Level 1.8 mmol/L (0.4-2.0) C-Reactive Protein 14.70 MG/DL (0.00-0.30) Test 01/19/18 02:50 01/19/18 07:49 01/19/18 17:50 01/20/18 06:52 Nasal Screen MRSA (PCR) MRSA DETECTED (NOT DETECT) Prothrombin Time 22.4 SEC (9.8-11.6) 17.5 SEC (9.8-11.6) 18.3 SEC (9.8-11.6) Prothromb Time International Ratio 2.2 RATIO 1.7 RATIO 1.8 RATIO Blood Urea Nitrogen 19 MG/DL (7-18) 19 MG/DL (7-18) Creatinine 1.83 MG/DL (0.60-1.30) 1.88 MG/DL (0.60-1.30) Random Glucose 72 MG/DL (74-106) 109 MG/DL (74-106) Total Protein 6.3 GM/DL (6.4-8.2) 6.2 GM/DL (6.4-8.2) Albumin 3.3 GM/DL (3.4-5.0) 3.1 GM/DL (3.4-5.0) Calcium Level 8.9 MG/DL (8.5-10.1) 8.6 MG/DL (8.5-10.1) Alkaline Phosphatase 128 U/L (45-117) 123 U/L (45-117) Aspartate Amino Transf (AST/SGOT) 28 U/L (15-37) 26 U/L (15-37) Alanine Aminotransferase (ALT/SGPT) 10 U/L (12-78) 9 U/L (12-78) Total Bilirubin 0.7 MG/DL (0.2-1.0) 0.6 MG/DL (0.2-1.0) Sodium Level 145 MEQ/L (136-145) 144 MEQ/L (136-145) Potassium Level 3.9 MEQ/L (3.5-5.1) 3.8 MEQ/L (3.5-5.1) Chloride Level 110 MEQ/L (98-107) 113 MEQ/L (98-107) Carbon Dioxide Level 19.4 MEQ/L (21.0-32.0) 17.9 MEQ/L (21.0-32.0) Anion Gap 16 MEQ/L (5-15) 13 MEQ/L (5-15) Estimat Glomerular Filtration Rate 48 ML/MIN (>89) 46 ML/MIN (>89) Troponin I 0.41 NG/ML (0.02-0.05) 0.46 NG/ML (0.02-0.05) White Blood Count 6.7 TH/MM3 (4.0-11.0) Red Blood Count 3.15 MIL/MM3 (4.50-5.90) Hemoglobin 8.7 GM/DL (13.0-17.0) Hematocrit 26.0 % (39.0-51.0) Mean Corpuscular Volume 82.6 FL (80.0-100.0) Mean Corpuscular Hemoglobin 27.6 PG (27.0-34.0) Mean Corpuscular Hemoglobin Concent 33.4 % (32.0-36.0) Red Cell Distribution Width 22.2 % (11.6-17.2) Platelet Count 208 TH/MM3 (150-450) Mean Platelet Volume 8.3 FL (7.0-11.0) Neutrophils (%) (Auto) 89.5 % (16.0-70.0) Lymphocytes (%) (Auto) 4.9 % (9.0-44.0) Monocytes (%) (Auto) 5.3 % (0.0-8.0) Eosinophils (%) (Auto) 0.0 % (0.0-4.0) Basophils (%) (Auto) 0.3 % (0.0-2.0) Neutrophils # (Auto) 6.0 TH/MM3 (1.8-7.7) Lymphocytes # (Auto) 0.3 TH/MM3 (1.0-4.8) Monocytes # (Auto) 0.4 TH/MM3 (0-0.9) Eosinophils # (Auto) 0.0 TH/MM3 (0-0.4) Basophils # (Auto) 0.0 TH/MM3 (0-0.2) CBC Comment DIFF FINAL Differential Comment Result Diagram: 01/20/18 0652 01/20/18 0652 Microbiology Microbiology Date/Time Source Procedure Growth Status 01/19/18 01:10 Blood Peripheral Aerobic Blood Culture - Preliminary NO GROWTH IN 1 DAY Resulted 01/19/18 01:10 Blood Peripheral Anaerobic Blood Culture - Preliminary NO GROWTH IN 1 DAY Resulted 01/19/18 01:05 Blood Peripheral Aerobic Blood Culture - Preliminary NO GROWTH IN 1 DAY Resulted 01/19/18 01:05 Blood Peripheral Anaerobic Blood Culture - Preliminary NO GROWTH IN 1 DAY Resulted Assessment and Plan Disease Oriented Problem List: (1) Respiratory failure (2) Sepsis (3) Non-Hodgkin lymphoma (4) Severe protein-calorie malnutrition (5) Cachexia (6) Physical deconditioning Symptom Scale: (1) Shortness of breath 0-10 Scale: 7 (2) Debility 0-10 Scale: Unable to quantify Pertinent Non-Medical Issues Psychosocial: Patient was born and raised in [place], he lives with his mother. Patient is single, has 8 children (5 boys and 3 girls) ages 27 to 7 years old. 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 Highest level of education is eighth grade. No service. Spiritual: Legal: Ethical issues impacting care: Important Contacts Mother/[facility] Oxana Seals Sister/alternate HCS Yuli Garcia . Prognosis Mr. 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 Patient with multiple recent hospitalizations secondary to ongoing clinical complications to include persistent malignant pericardial effusions, pleural effusions, pulmonary embolism, renal failure, bacterial endocarditis, cardiomyopathy, history of infected port with MRSA infection, profound physical deconditioning, severe protein-caloric malnutrition and C. difficile colitis. Patient with progression of disease on multiple lines of treatment, currently no longer a candidate for further systemic therapy given poor performance status and additional complications. Patient a very high risk for further complications, continued decline and . Patient appears hospice appropriate if he elects comfort-directed care. . Code Status: No Code Plan * CODE STATUS: DNR/DNI. community DNR signed by patient. * HEALTHCARE DECISION-MAKING: Patient participating in medical decision making. He appears to have a fair understanding of his clinical condition and retains the ability to weigh benefits versus burdens of treatment options. Advanced directives completed. Patient has elected his mother Oxana Seals as healthcare surrogate decision maker, alternate surrogate his sister France Garcia. * GOALS OF CARE: Patient with the support of his mother/HCS Oxana Seals has elected to transition to comfort-directed care with hospice given overall poor prognosis. Patient with progressive B cell lymphoma, multiple complications to include Sepsis MRSA, endocarditis, anemia, recurrent pleural effusions and recent malignant pericardial effusion. Patient is severely cachectic with profound physical deconditioning, not a candidate for additional systemic therapy. Plan is to discharge to hospice care center after planned thoracentesis for symptoms management of dyspnea. * SYMPTOMS: = Dyspnea: Secondary to recurrent pleural effusions. Pending thoracentesis. = Debility: Progressive. Patient with poor functional status, severe protein-caloric malnutrition. Patient is severely cachectic. Debility likely to continue to worsen his given progression of disease. * Case discussed with JITENDRA Dougherty and bedside RN Leticia. * Palliative care contact information has been provided to patient and family. * Palliative care will continue to follow up for further clarification of goals of care as patient's clinical course continues to evolve. . Time Spent Total Floor Time (mins): 47 (Total time to include review medical records, physical exam, goals of care conversation with patient and family, case discussion with oncology and bedside RN.) >50% Counseling/Coord of Care: Yes Attestation To help prompt me to consider important information that might be impacting today's encounter and assessment, information from prior notes written by myself or my colleagues may have been "brought forward" into today's note. My signature on this note, however, is an attestation that I personally performed the exam, history, and/or decision-making noted today, and, unless otherwise indicated, the interactions with patient, family, and staff as well as the review of records all occurred today. I also attest that the listed assessment and stated plan reflect my best clinical judgment today based on the combination of historical information, prior notes, and today's exam/ interactions. When time spent is documented, it refers only to time spent today by the signer, or if indicated, combined time spent today by collaborating physician/nurse practitioner. Demetrice Brody Jan 20, 2018 11:28
--- NOTE | 2018-01-20 14:59 | RADRPT ---
EXAM DATE/TIME: 01/20/2018 14:43 [facility] COMPARISON: CHEST EXPIRATION ONLY, May 01, 2017, 6:23. INDICATIONS : Post thoracentesis. MEDICAL HISTORY : Hypertension. Non Hodgkins lymphoma. SURGICAL HISTORY : Thoracentesis. Infusaport. ENCOUNTER: Subsequent ACUITY: 1 day PAIN SCORE: 0/10 LOCATION: Bilateral chest FINDINGS: A single frontal expiratory view of the chest was performed. The lungs are symmetrically aerated and clear. No evidence of pneumothorax. Mediastinal structures are in the midline. [id number] in g ood position. The cardio-mediastinal contours and bronchopulmonary markings are unremarkable for an expiratory exam . Osseous structures are intact. CONCLUSION: No pneumothorax following right thoracentesis. Kirk Briceño MD FACR on January 20, 2018 at 14:54 Board Certified Radiologist. This report was verified electronically.
[2018-01-20] MEDS ORDERED: LIDOCAINE HCL 1% 20 ML VIAL ONE (15:09)
--- NOTE | 2018-01-20 15:13 | RADRPT ---
EXAM DATE/TIME: 01/20/2018 09:20 [facility] COMPARISON: US GUIDED THORACENTESIS RIGHT, April 30, 2017, 12:14. INDICATIONS : Right pleural effusion. MEDICAL HISTORY : Lymphoma. Hypertension. SURGICAL HISTORY : Rt sided chest port and lymph node biopsy. ENCOUNTER: Subsequent ACUITY: 1 week PAIN SCORE: 7/10 LOCATION: Right chest FLUID: Total volume of 1700 cc of clear, yellow fluid was removed. Fluid was sent to lab for ordered studies. TECHNIQUE: 1. Ultrasound guidance for thoracentesis. 2. Thoracentesis. The risks, benefits, and alternatives to ultrasound guided thoracentesis were explained to the patien t in lay simple terms, including the risk of bleeding and infection. Written and verbal informed con sent was obtained. Appropriate area for thoracentesis was marked under ultrasound guidance with the patient in the uprig ht position. Overlying skin was prepped and draped in the usual sterile fashion and with local anest hetic, a dermatotomy was made with an 11 blade scalpel. A 6 Stateless thoracentesis catheter was placed in the pleural space and fluid was removed. Catheter was then removed and a sterile dressing applie d. There were no immediate complications. The patient tolerated the procedure well and the left the ultrasound suite in stable condition. Chest radiograph is to be obtained. CONCLUSION: Uncomplicated ultrasound guided thoracentesis. Kirk Briceño MD FACR on January 20, 2018 at 15:11 Board Certified Radiologist. This report was verified electronically.
--- NOTE | 2018-01-20 15:33 | PD.ONC.PN ---
Subjective Subjective Remarks Afebrile overnight. Patient dyspneic. s/p thoracentesis this AM. otherwise without complaint. Objective Data Date Time Temp Pulse Resp B/P (MAP) Pulse Ox O2 Delivery O2 Flow Rate FiO2 01/20/18 15:04 98.2 98 18 107/81 (90) 99 01/20/18 14:20 97.8 100 18 118/78 (91) 94 01/20/18 12:00 98.0 96 22 123/89 (100) 96 01/20/18 12:00 96 01/20/18 11:00 93 01/20/18 10:00 95 01/20/18 09:00 100 01/20/18 08:45 96 Nasal Cannula 2.00 01/20/18 08:00 98.0 94 22 107/79 (88) 97 01/20/18 08:00 94 01/20/18 07:00 94 01/20/18 04:00 96 01/20/18 04:00 98.1 96 20 146/84 (104) 54 01/20/18 02:00 100 01/20/18 00:00 98.3 101 22 127/81 (96) 98 01/20/18 00:00 101 01/19/18 22:00 113 01/19/18 20:00 100 01/19/18 20:00 98.1 100 35 132/90 (104) 98 01/19/18 19:49 96 Nasal Cannula 2.00 01/19/18 18:00 98 01/19/18 17:00 97 01/19/18 16:00 105 01/19/18 16:00 98.5 105 33 125/92 (103) 93 01/20/18 01/20/18 01/20/18 07:00 15:00 23:00 Intake Total 1000 ml Balance 1000 ml Result Diagram: 01/20/1852 01/20/18651 Laboratory Results Laboratory Tests Test 01/19/18 17:50 01/20/18 06:52 Prothrombin Time 17.5 SEC 18.3 SEC Prothromb Time International Ratio 1.7 RATIO 1.8 RATIO Blood Urea Nitrogen 19 MG/DL 19 MG/DL Creatinine 1.83 MG/DL 1.88 MG/DL Random Glucose 72 MG/DL 109 MG/DL Total Protein 6.3 GM/DL 6.2 GM/DL Albumin 3.3 GM/DL 3.1 GM/DL Calcium Level 8.9 MG/DL 8.6 MG/DL Alkaline Phosphatase 128 U/L 123 U/L Aspartate Amino Transf (AST/SGOT) 28 U/L 26 U/L Alanine Aminotransferase (ALT/SGPT) 10 U/L 9 U/L Total Bilirubin 0.7 MG/DL 0.6 MG/DL Sodium Level 145 MEQ/L 144 MEQ/L Potassium Level 3.9 MEQ/L 3.8 MEQ/L Chloride Level 110 MEQ/L 113 MEQ/L Carbon Dioxide Level 19.4 MEQ/L 17.9 MEQ/L Anion Gap 16 MEQ/L 13 MEQ/L Estimat Glomerular Filtration Rate 48 ML/MIN 46 ML/MIN Troponin I 0.41 NG/ML 0.46 NG/ML White Blood Count 6.7 TH/MM3 Red Blood Count 3.15 MIL/MM3 Hemoglobin 8.7 GM/DL Hematocrit 26.0 % Mean Corpuscular Volume 82.6 FL Mean Corpuscular Hemoglobin 27.6 PG Mean Corpuscular Hemoglobin Concent 33.4 % Red Cell Distribution Width 22.2 % Platelet Count 208 TH/MM3 Mean Platelet Volume 8.3 FL Neutrophils (%) (Auto) 89.5 % Lymphocytes (%) (Auto) 4.9 % Monocytes (%) (Auto) 5.3 % Eosinophils (%) (Auto) 0.0 % Basophils (%) (Auto) 0.3 % Neutrophils # (Auto) 6.0 TH/MM3 Lymphocytes # (Auto) 0.3 TH/MM3 Monocytes # (Auto) 0.4 TH/MM3 Eosinophils # (Auto) 0.0 TH/MM3 Basophils # (Auto) 0.0 TH/MM3 CBC Comment DIFF FINAL Differential Comment Culture Results Microbiology Date/Time Source Procedure Growth Status 01/19/18 01:10 Blood Peripheral Aerobic Blood Culture - Preliminary NO GROWTH IN 1 DAY Resulted 01/19/18 01:10 Blood Peripheral Anaerobic Blood Culture - Preliminary NO GROWTH IN 1 DAY Resulted 01/19/18 01:05 Blood Peripheral Aerobic Blood Culture - Preliminary NO GROWTH IN 1 DAY Resulted 01/19/18 01:05 Blood Peripheral Anaerobic Blood Culture - Preliminary NO GROWTH IN 1 DAY Resulted Imaging Studies Last 24 hours Impressions Thoracentesis Ultrasound 01/20/18 0000 Signed Impressions: Service Date/Time: Saturday, January 20, 2018 09:20 - CONCLUSION: Uncomplicated ultrasound guided thoracentesis. Kirk Briceño MD FACR Chest X-Ray 01/20/18 0000 Signed Impressions: Service Date/Time: Saturday, January 20, 2018 14:43 - CONCLUSION: No pneumothorax following right thoracentesis. Kirk Briceño MD FACR Administered Medications Medications (Trade) Dose Ordered Sig/Shyla Route PRN Reason Start Time Stop Time Status Last Admin Dose Admin Levothyroxine Sodium (Synthroid) 25 mcg DAILY@0600 PO 01/19/18 06:00 01/20/18 05:45 Sodium Chloride (NS Flush) 2 ml BID IV FLUSH 01/19/18 09:00 01/20/18 09:02 Famotidine (Pepcid Inj) 20 mg Q12HR IV PUSH 01/19/18 09:00 01/20/18 09:02 Albuterol/ Ipratropium (Duoneb Neb) 1 ampule Q4HR NEB INH 01/19/18 04:00 01/20/18 11:25 Cefepime HCl 2000 mg/Sodium Chloride 100 ml @ 200 mls/hr Q8H IV 01/19/18 01:00 01/20/18 09:02 Chlorhexidine Gluconate (Chlorhexidine 2% Cloth) 3 pack Taper DAILY@04 TOP 01/19/18 04:00 01/15/19 03:59 01/20/18 04:00 Morphine Sulfate (Morphine Inj) 2 mg Q4H PRN IV pain 6-10 01/19/18 01:00 01/20/18 13:08 Dextrose/Sodium Chloride 1,000 ml @ 75 mls/hr [id number] IV 01/19/18 12:30 01/20/18 01:50 Objective Remarks GENERAL: Middle aged male, sitting up in bed, dyspneic SKIN: Warm and dry. HEAD: Normocephalic. EYES: no injection or drainage. NECK: Supple, trachea midline. CARDIOVASCULAR: +S1/S2, tachy RESPIRATORY: anterior canas scattered rhonchi. On O2 via NC GASTROINTESTINAL: Abdomen soft, non-tender, nondistended. EXTREMITIES: No cyanosis NEUROLOGICAL: awake and alert. 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 --progressed on multiple lines of therapy (2) Pleural effusion ICD Codes: J90 - Pleural effusion, not elsewhere classified Status: Resolved Plan: --s/p thoracentesis -- had bilateral thoracentesis last week and cytology was positive for lymphoma. Effusion has reaccumulated. Assessment 47y/o male with diffuse large b-cell lymphoma h/o malignant pericardial effusion. Malignant pleural effusion. Hypertension. Pulmonary embolism. Renal failure. Bacterial endocarditis. Cardiomyopathy. Pleural effusion. Infected port. History of methicillin-resistant Staphylococcus aureus infection. History of Clostridium difficile colitis. Plan 1. agree with hospice 2. continue supportive care Attending Statement The exam, history, and the medical decision-making described in the above note were completed with the assistance of the mid-level provider. I reviewed and agree with the findings presented. I attest that I had a [id number] encounter with the patient on the same day, and personally performed and documented my assessment and findings in the medical record. Pt is weaker and dyspneic. He is declining rapidly. He is not candidate for further chemotherapy. Palliative care is meeting with patient and family today. I would recommend hospice care. Brenda Platt Jan 20, 2018 15:33 Ruslan Connelly MD Jan 20, 2018 16:15
--- NOTE | 2018-01-20 15:49 | HHI.PR ---
Subjective Remarks 47-year-old man with recently diagnosed non-Hodgkin's lymphoma, B-cell type, presents with worsening shortness of breath over the past 2 weeks. He was just discharged after admitted for the same yesterday. CAT scan of the chest at that time celi. There is a small amount of pericardial fluid is well. 01-20 TRANSFERRED TO OUR SERVICE TODAY HAD RIGHT SIDED THORACENTESIS TODAY SEEN BY ONCOLOGY AND PALLIATIVE CARE ID AND PULMONARY SIGNED DNR MAY GO TO HOSPICE TODAY OR TOMORROW WILL NEED TO GO TO THE CARE CENTER Objective Vitals Vital Signs Date Time Temp Pulse Resp B/P (MAP) Pulse Ox O2 Delivery O2 Flow Rate FiO2 01/20/18 15:04 98.2 98 18 107/81 (90) 99 01/20/18 14:20 97.8 100 18 118/78 (91) 94 01/20/18 12:00 98.0 96 22 123/89 (100) 96 01/20/18 12:00 96 01/20/18 11:00 93 01/20/18 10:00 95 01/20/18 09:00 100 01/20/18 08:45 96 Nasal Cannula 2.00 01/20/18 08:00 98.0 94 22 107/79 (88) 97 01/20/18 08:00 94 01/20/18 07:00 94 01/20/18 04:00 96 01/20/18 04:00 98.1 96 20 146/84 (104) 54 01/20/18 02:00 100 01/20/18 00:00 98.3 101 22 127/81 (96) 98 01/20/18 00:00 101 01/19/18 22:00 113 01/19/18 20:00 100 01/19/18 20:00 98.1 100 35 132/90 (104) 98 01/19/18 19:49 96 Nasal Cannula 2.00 01/19/18 18:00 98 01/19/18 17:00 97 01/19/18 16:00 105 01/19/18 16:00 98.5 105 33 125/92 (103) 93 I/O 01/19/18 01/19/18 01/19/18 01/20/18 01/20/18 01/20/18 06:59 14:59 22:59 06:59 14:59 22:59 Intake Total 424 ml 360 ml 1000 ml Balance 424 ml 360 ml 1000 ml Intake IV Total 100 ml 1000 ml FFP 294 ml 300 ml Blood Product IV Normal Saline Flush 30 ml 60 ml Result Diagram: 01/20/18 0652 01/20/1852 Other Results Laboratory Tests Test 01/18/18 22:30 01/18/18 23:10 01/19/18 01:00 01/19/18 01:05 Prothrombin Time 21.6 SEC Prothromb Time International Ratio 2.1 RATIO Activated Partial Thromboplast Time 33.1 SEC 34.9 SEC White Blood Count 8.2 TH/MM3 8.4 TH/MM3 Red Blood Count 3.69 MIL/MM3 3.73 MIL/MM3 Hemoglobin 9.9 GM/DL 9.9 GM/DL Hematocrit 30.1 % 30.7 % Mean Corpuscular Volume 81.6 FL 82.1 FL Mean Corpuscular Hemoglobin 26.9 PG 26.4 PG Mean Corpuscular Hemoglobin Concent 32.9 % 32.1 % Red Cell Distribution Width 21.7 % 21.7 % Platelet Count 238 TH/MM3 245 TH/MM3 Mean Platelet Volume 8.3 FL 8.1 FL Neutrophils (%) (Auto) 91.4 % Lymphocytes (%) (Auto) 3.2 % Monocytes (%) (Auto) 4.9 % Eosinophils (%) (Auto) 0.0 % Basophils (%) (Auto) 0.5 % Neutrophils # (Auto) 7.5 TH/MM3 Lymphocytes # (Auto) 0.3 TH/MM3 Monocytes # (Auto) 0.4 TH/MM3 Eosinophils # (Auto) 0.0 TH/MM3 Basophils # (Auto) 0.0 TH/MM3 CBC Comment DIFF FINAL Differential Comment Blood Urea Nitrogen 20 MG/DL Creatinine 1.76 MG/DL Random Glucose 40 MG/DL Total Protein 5.9 GM/DL Albumin 3.1 GM/DL Calcium Level 8.8 MG/DL Alkaline Phosphatase 135 U/L Aspartate Amino Transf (AST/SGOT) 28 U/L Alanine Aminotransferase (ALT/SGPT) 8 U/L Total Bilirubin 0.6 MG/DL Sodium Level 142 MEQ/L Potassium Level 4.2 MEQ/L Chloride Level 109 MEQ/L Carbon Dioxide Level 16.3 MEQ/L Anion Gap 17 MEQ/L Estimat Glomerular Filtration Rate 50 ML/MIN Total Creatine Kinase 109 U/L Creatine Kinase MB 2.0 NG/ML Troponin I 0.49 NG/ML Lactic Acid Level 1.8 mmol/L C-Reactive Protein 14.70 MG/DL Test 01/19/18 02:50 01/19/18 07:49 01/19/18 17:50 01/20/18 06:52 Nasal Screen MRSA (PCR) MRSA DETECTED Prothrombin Time 22.4 SEC 17.5 SEC 18.3 SEC Prothromb Time International Ratio 2.2 RATIO 1.7 RATIO 1.8 RATIO Blood Urea Nitrogen 19 MG/DL 19 MG/DL Creatinine 1.83 MG/DL 1.88 MG/DL Random Glucose 72 MG/DL 109 MG/DL Total Protein 6.3 GM/DL 6.2 GM/DL Albumin 3.3 GM/DL 3.1 GM/DL Calcium Level 8.9 MG/DL 8.6 MG/DL Alkaline Phosphatase 128 U/L 123 U/L Aspartate Amino Transf (AST/SGOT) 28 U/L 26 U/L Alanine Aminotransferase (ALT/SGPT) 10 U/L 9 U/L Total Bilirubin 0.7 MG/DL 0.6 MG/DL Sodium Level 145 MEQ/L 144 MEQ/L Potassium Level 3.9 MEQ/L 3.8 MEQ/L Chloride Level 110 MEQ/L 113 MEQ/L Carbon Dioxide Level 19.4 MEQ/L 17.9 MEQ/L Anion Gap 16 MEQ/L 13 MEQ/L Estimat Glomerular Filtration Rate 48 ML/MIN 46 ML/MIN Troponin I 0.41 NG/ML 0.46 NG/ML White Blood Count 6.7 TH/MM3 Red Blood Count 3.15 MIL/MM3 Hemoglobin 8.7 GM/DL Hematocrit 26.0 % Mean Corpuscular Volume 82.6 FL Mean Corpuscular Hemoglobin 27.6 PG Mean Corpuscular Hemoglobin Concent 33.4 % Red Cell Distribution Width 22.2 % Platelet Count 208 TH/MM3 Mean Platelet Volume 8.3 FL Neutrophils (%) (Auto) 89.5 % Lymphocytes (%) (Auto) 4.9 % Monocytes (%) (Auto) 5.3 % Eosinophils (%) (Auto) 0.0 % Basophils (%) (Auto) 0.3 % Neutrophils # (Auto) 6.0 TH/MM3 Lymphocytes # (Auto) 0.3 TH/MM3 Monocytes # (Auto) 0.4 TH/MM3 Eosinophils # (Auto) 0.0 TH/MM3 Basophils # (Auto) 0.0 TH/MM3 CBC Comment DIFF FINAL Differential Comment Imaging Last Impressions Thoracentesis Ultrasound 01/20/18 0000 Signed Impressions: Service Date/Time: Saturday, January 20, 2018 09:20 - CONCLUSION: Uncomplicated ultrasound guided thoracentesis. Kirk Briceño MD FACR Chest X-Ray 01/20/18 0000 Signed Impressions: Service Date/Time: Saturday, January 20, 2018 14:43 - CONCLUSION: No pneumothorax following right thoracentesis. Kirk Briceño MD FACR Objective Remarks GENERAL: AWAKE AND ALERT OX3 TALKATIVE AND COOPERATIVE VERY CACHECTIC-MADE A DNR SKIN: Warm and dry. HEAD: Atraumatic. Normocephalic. EYES: Pupils equal and round. No scleral icterus. No injection or drainage. EYES SUNKEN, EOMI ENT: No nasal bleeding or discharge. Mucous membranes pink and moist.TONGUE MIDLINE NECK: Trachea midline. No JVD. CARDIOVASCULAR: Regular rate and rhythm. S1,S 2 NO S3 OR S4 RESPIRATORY: No accessory muscle use. Clear to auscultation. Breath sounds equal bilaterally. DECREASED BREATH SOUNDS ON THE LEFT GASTROINTESTINAL: Abdomen soft, non-tender, nondistended. Hepatic and splenic margins not palpable. MUSCULOSKELETAL: Extremities without clubbing, cyanosis, or edema. No obvious deformities. NEUROLOGICAL: Awake and alert BUT VERY LETHARGIC. No obvious cranial nerve deficits. Motor grossly within normal limits. Five out of 5 muscle strength in the arms and legs. ABNormal speech. PSYCHIATRIC: INAppropriate mood and affect; insight and judgment ABnormal. Procedures RIGHT SIDED THORACENTESIS 1.7 LITERS Medications and IVs Current Medications Sodium Chloride (NS Flush) 2 ml UNSCH PRN IVF FLUSH AFTER USING IV ACCESS Last administered on 01/19/18at 00:20; Start 01/18/18 at 22:00; Stop 01/19/18 at 00:59 ; Status DC Dextrose (D50w (Syr) Inj) 25 ml ONCE ONCE IV PUSH Last administered on at 00:20; Start 01/19/18 at 00:15; Stop 01/19/18 at 00:16; Status DC Aspirin (Aspirin Chew) 81 mg DAILY CHEW ; Start 01/19/18 at 09:00 Calcium Carbonate (Oscal) 1,500 mg DAILY PO ; Start 01/19/18 at 09:00 Levothyroxine Sodium (Synthroid) 25 mcg DAILY@0600 PO Last administered on 01/20at 05:45; Start 01/19/18 at 06:00 Warfarin Sodium (Coumadin) 3 mg DAILY@1600 PO ; Start 01/19/18 at 16:00 Patient Medication Teaching (Coumadin Booklet) 1 ONCE ONCE .XX ; Start at 16:00; Stop 01/19/18 at 16:01; Status DC Sodium Chloride (NS Flush) 2 ml UNSCH PRN IV FLUSH FLUSH AFTER USING IV ACCESS ; Start 01/19/18 at 00:45 Sodium Chloride (NS Flush) 2 ml BID IV FLUSH Last administered on 01/20/18at 09: 02; Start 01/19/18 at 09:00 Famotidine (Pepcid Inj) 20 mg Q12HR IV PUSH Last administered on 01/20/18at 09: 02; Start 01/19/18 at 09:00 Albuterol/ Ipratropium (Duoneb Neb) 1 ampule Q4HR NEB INH Last administered on 01/20/18at 15:37; Start 01/19/18 at 04:00 Albuterol/ Ipratropium (Duoneb Neb) 1 ampule Q2HR NEB PRN NEB WHEEZING; Start 01/19/18 at 01:00 Heparin Sodium (Porcine) (Heparin Inj) 5,000 units Q12H SQ ; Start 01/19/18 at 12:00; Stop 01/19/18 at 12:00; Status DC Cefepime HCl 2000 mg/Sodium Chloride 100 ml @ 200 mls/hr Q8H IV Last administered on 01/20/18at 09:02; Start 01/19/18 at 01:00 Sodium Chloride 1,000 ml @ 1,000 mls/hr Q1H ONCE IV Last administered on at 01:27; Start 01/19/18 at 00:45; Stop 01/19/18 at 01:44; Status DC Miscellaneous Information 1 Q361D XX ; Start 01/19/18 at 00:45 Chlorhexidine Gluconate (Chlorhexidine 2% Cloth) 3 pack Taper DAILY@04 TOP Last administered on 01/20/18at 04:00; Start 01/19/18 at 04:00; Stop 01/15/19 at 03:59 Chlorhexidine Gluconate (Chlorhexidine 2% Cloth) 3 pack UNSCH PRN TOP HYGIENIC CARE; Start 01/19/18 at 00:45 Acetaminophen (Tylenol 650 Mg/ 20 ml Liq) 650 mg Q6H PRN PO fever or pain 1-5; Start 01/19/18 at 01:00 Morphine Sulfate (Morphine Inj) 2 mg Q4H PRN IV pain 6-10 Last administered on 01/20/18at 13:08; Start 01/19/18 at 01:00 Ondansetron HCl (Zofran Inj) 4 mg Q6HR PRN IV PUSH nausea; Start 01/19/18 at 01 :00 Dextrose (D50w (Syr) Inj) 25 ml ONCE ONCE IV PUSH Last administered on at 01:50; Start 01/19/18 at 01:45; Stop 01/19/18 at 01:46; Status DC Pharmacy Profile Note 0 ml @ 0 mls/hr UNSCH OTHER ; Start 01/19/18 at 06:00 Dextrose/Sodium Chloride 1,000 ml @ 75 mls/hr [id number] IV Last administered on 01/20/18at 01:50; Start 01/19/18 at 12:30 Dextrose (D50w (Vial) Inj) 50 ml UNSCH PRN IV PUSH HYPOGLYCEMIA-SEE COMMENTS; Start 01/19/18 at 12:30 Glucagon (Glucagon Inj) 1 mg UNSCH PRN OTHER HYPOGLYCEMIA-SEE COMMENTS; Start 01/19/18 at 12:30 Insulin Human Regular (NovoLIN R SUPPLEMENTAL SCALE) 1 Q4H SQ ; Start 01/19/18 at 12:30 Lidocaine HCl (Xylocaine 1% Inj) 20 ml STK-MED ONCE .ROUTE Last administered on 01/20/18at 15:09; Start 01/20/18 at 15:09; Stop 01/20/18 at 15:10; Status DC A/P Problem List: (1) Diffuse large B cell lymphoma ICD Code: C83.30 - Diffuse large B-cell lymphoma, unspecified site (2) Pleural effusion ICD Code: J90 - Pleural effusion, not elsewhere classified Status: Resolved (3) Non-Hodgkin lymphoma ICD Code: C85.90 - Non-Hodgkin lymphoma, unspecified, unspecified site Status: Acute (4) Physical deconditioning ICD Code: R53.81 - Other malaise (5) Severe protein-calorie malnutrition ICD Code: E43 - Unspecified severe protein-calorie malnutrition (6) Debility ICD Code: R53.81 - Other malaise Status: Acute (7) Respiratory failure ICD Code: J96.90 - Respiratory failure, unspecified, unspecified whether with hypoxia or hypercapnia (8) Shortness of breath ICD Code: R06.02 - Shortness of breath Status: Acute (9) Cachexia ICD Code: R64 - Cachexia (10) Poor appetite ICD Code: R63.0 - Anorexia Status: Acute (11) Cardiomyopathy ICD Code: I42.9 - Cardiomyopathy, unspecified Assessment and Plan Respiratory failure -Bilateral pleural effusion -IR for thoracentesis -Pleural fluid for studies including cytology -Pulmonary consult for recurrent pleural effusion -Consider pleurodesis versus Indwelling Tunneled Pleural Catheters HAD RIGHT SIDED THORACENTESIS 1.7 LITERS OFF 4-11 Sepsis -Immunocompromised patient -Empiric cefepime -Panculture -Infectious disease consultation Hypertension -Hold antihypertensive meds due to possible sepsis -Resume when indicated History of pulmonary embolism -Continue Coumadin - dosing per pharmacy Non-Hodgkin lymphoma -Management per hematology oncology CACHEXIA NO APPETITE SEVERE PROTEIN CALORIE MALNUTRITION TO GO TO HOSPICE TODAY OR TOMORROW DVT GI prophylaxis -Rob's and SCDs -Coumadin ON HOLD -Pepcid Discharge Planning DC TO HOSPICE TODAY Kirk Long DO Jan 20, 2018 15:49
--- NOTE | 2018-01-20 15:53 | HHI.DS ---
Discharge Summary Admission Date Jan 19, 2018 at 00:32 Discharge Date: Jan 20, 2018 Admitting Diagnosis SOB, pleural effusions (1) Diffuse large B cell lymphoma ICD Code: C83.30 - Diffuse large B-cell lymphoma, unspecified site Diagnosis: Principal (2) Pleural effusion ICD Code: J90 - Pleural effusion, not elsewhere classified Diagnosis: Principal Status: Resolved (3) Non-Hodgkin lymphoma ICD Code: C85.90 - Non-Hodgkin lymphoma, unspecified, unspecified site Diagnosis: Principal Status: Acute (4) Physical deconditioning ICD Code: R53.81 - Other malaise Diagnosis: Principal (5) Severe protein-calorie malnutrition ICD Code: E43 - Unspecified severe protein-calorie malnutrition Diagnosis: Principal (6) Debility ICD Code: R53.81 - Other malaise Diagnosis: Principal Status: Acute (7) Respiratory failure ICD Code: J96.90 - Respiratory failure, unspecified, unspecified whether with hypoxia or hypercapnia Diagnosis: Principal (8) Shortness of breath ICD Code: R06.02 - Shortness of breath Diagnosis: Principal Status: Acute (9) Cachexia ICD Code: R64 - Cachexia Diagnosis: Principal (10) Poor appetite ICD Code: R63.0 - Anorexia Diagnosis: Principal Status: Acute (11) Cardiomyopathy ICD Code: I42.9 - Cardiomyopathy, unspecified Diagnosis: Principal Procedures RIGHT SIDED THORACENTESIS 1.7 LITERS Brief History - From Admission 47-year-old man with recently diagnosed non-Hodgkin's lymphoma, B-cell type, presents with worsening shortness of breath over the past 2 weeks. He was just discharged after admitted for the same yesterday. CAT scan of the chest at that time celi. There is a small amount of pericardial fluid is well. CBC/BMP: 01/20/18 0652 01/20/18 0652 Significant Findings Laboratory Tests Test 01/18/18 22:30 01/18/18 23:10 01/19/18 01:00 01/19/18 01:05 Prothrombin Time 21.6 SEC (9.8-11.6) Activated Partial Thromboplast Time 33.1 SEC (24.3-30.1) 34.9 SEC (24.3-30.1) Red Blood Count 3.69 MIL/MM3 (4.50-5.90) 3.73 MIL/MM3 (4.50-5.90) Hemoglobin 9.9 GM/DL (13.0-17.0) 9.9 GM/DL (13.0-17.0) Hematocrit 30.1 % (39.0-51.0) 30.7 % (39.0-51.0) Mean Corpuscular Hemoglobin 26.9 PG (27.0-34.0) 26.4 PG (27.0-34.0) Red Cell Distribution Width 21.7 % (11.6-17.2) 21.7 % (11.6-17.2) Neutrophils (%) (Auto) 91.4 % (16.0-70.0) Lymphocytes (%) (Auto) 3.2 % (9.0-44.0) Lymphocytes # (Auto) 0.3 TH/MM3 (1.0-4.8) Blood Urea Nitrogen 20 MG/DL (7-18) Creatinine 1.76 MG/DL (0.60-1.30) Random Glucose 40 MG/DL (74-106) Total Protein 5.9 GM/DL (6.4-8.2) Albumin 3.1 GM/DL (3.4-5.0) Alkaline Phosphatase 135 U/L (45-117) Alanine Aminotransferase (ALT/SGPT) 8 U/L (12-78) Chloride Level 109 MEQ/L (98-107) Carbon Dioxide Level 16.3 MEQ/L (21.0-32.0) Anion Gap 17 MEQ/L (5-15) Estimat Glomerular Filtration Rate 50 ML/MIN (>89) Troponin I 0.49 NG/ML (0.02-0.05) C-Reactive Protein 14.70 MG/DL (0.00-0.30) Test 01/19/18 02:50 01/19/18 07:49 01/19/18 17:50 01/20/18 06:52 Prothrombin Time 22.4 SEC (9.8-11.6) 17.5 SEC (9.8-11.6) 18.3 SEC (9.8-11.6) Blood Urea Nitrogen 19 MG/DL (7-18) 19 MG/DL (7-18) Creatinine 1.83 MG/DL (0.60-1.30) 1.88 MG/DL (0.60-1.30) Random Glucose 72 MG/DL (74-106) 109 MG/DL (74-106) Total Protein 6.3 GM/DL (6.4-8.2) 6.2 GM/DL (6.4-8.2) Albumin 3.3 GM/DL (3.4-5.0) 3.1 GM/DL (3.4-5.0) Alkaline Phosphatase 128 U/L (45-117) 123 U/L (45-117) Alanine Aminotransferase (ALT/SGPT) 10 U/L (12-78) 9 U/L (12-78) Chloride Level 110 MEQ/L (98-107) 113 MEQ/L (98-107) Carbon Dioxide Level 19.4 MEQ/L (21.0-32.0) 17.9 MEQ/L (21.0-32.0) Anion Gap 16 MEQ/L (5-15) Estimat Glomerular Filtration Rate 48 ML/MIN (>89) 46 ML/MIN (>89) Troponin I 0.41 NG/ML (0.02-0.05) 0.46 NG/ML (0.02-0.05) Red Blood Count 3.15 MIL/MM3 (4.50-5.90) Hemoglobin 8.7 GM/DL (13.0-17.0) Hematocrit 26.0 % (39.0-51.0) Red Cell Distribution Width 22.2 % (11.6-17.2) Neutrophils (%) (Auto) 89.5 % (16.0-70.0) Lymphocytes (%) (Auto) 4.9 % (9.0-44.0) Lymphocytes # (Auto) 0.3 TH/MM3 (1.0-4.8) Imaging Last Impressions Thoracentesis Ultrasound 01/20/18 0000 Signed Impressions: Service Date/Time: Saturday, January 20, 2018 09:20 - CONCLUSION: Uncomplicated ultrasound guided thoracentesis. Kirk Briceño MD FACR Chest X-Ray 01/20/18 0000 Signed Impressions: Service Date/Time: Saturday, January 20, 2018 14:43 - CONCLUSION: No pneumothorax following right thoracentesis. Kirk Briceño MD FACR PE at Discharge GENERAL: AWAKE AND ALERT OX3 TALKATIVE AND COOPERATIVE VERY CACHECTIC-MADE A DNR SKIN: Warm and dry. HEAD: Atraumatic. Normocephalic. EYES: Pupils equal and round. No scleral icterus. No injection or drainage. EYES SUNKEN, EOMI ENT: No nasal bleeding or discharge. Mucous membranes pink and moist.TONGUE MIDLINE NECK: Trachea midline. No JVD. CARDIOVASCULAR: Regular rate and rhythm. S1,S 2 NO S3 OR S4 RESPIRATORY: No accessory muscle use. Clear to auscultation. Breath sounds equal bilaterally. DECREASED BREATH SOUNDS ON THE LEFT GASTROINTESTINAL: Abdomen soft, non-tender, nondistended. Hepatic and splenic margins not palpable. MUSCULOSKELETAL: Extremities without clubbing, cyanosis, or edema. No obvious deformities. NEUROLOGICAL: Awake and alert BUT VERY LETHARGIC. No obvious cranial nerve deficits. Motor grossly within normal limits. Five out of 5 muscle strength in the arms and legs. ABNormal speech. PSYCHIATRIC: INAppropriate mood and affect; insight and judgment ABnormal. Hospital Course 47-year-old man with recently diagnosed non-Hodgkin's lymphoma, B-cell type, presents with worsening shortness of breath over the past 2 weeks. He was just discharged after admitted for the same yesterday. CAT scan of the chest at that time celi. There is a small amount of pericardial fluid is well. 4-11 TRANSFERRED TO OUR SERVICE TODAY HAD RIGHT SIDED THORACENTESIS TODAY SEEN BY ONCOLOGY AND PALLIATIVE CARE ID AND PULMONARY SIGNED DNR MAY GO TO HOSPICE TODAY WILL NEED TO GO TO THE CARE CENTER NEEDS TO BE COMFORTABLE Pt Condition on Discharge: Deteriorating Discharge Disposition: Hospice/Med Facility Discharge Time: <= 30 minutes Discharge Instructions DIET: Follow Instructions for: As Tolerated, No Restrictions Activities you can perform: Regular-No Restrictions Follow up Referrals: Home Health - Today @ [facility] with [facility] Continued Medications: Aspirin (Tgt Aspirin) 81 Mg Chw 81 MG CHEW DAILY for Blood Clot Prevention, #30 EA Calcium Carbonate (Calcium Carbonate) 1,500 Mg Tab 1500 MG PO DAILY for Calcium Supplement, #30 TAB 0 Refills 1,500 mg calcium carbonate (600 mg elemental calcium) Levothyroxine (Levothyroxine) 25 Mcg Tab 25 MCG PO DAILY@0600 for Thyroid, #30 TAB Metoprolol Tartrate (Metoprolol Tartrate) 25 Mg Tab 12.5 MG PO Q12HR for Blood Pressure Management, #60 TAB Oxycodone-Acetaminophen (Percocet) 5-325 mg Tab 1 TAB PO Q6H PRN for PAIN, #30 TAB 0 Refills Pantoprazole (Protonix) 40 Mg Tab 40 MG PO DAILY for Reflux, #30 TAB 0 Refills Discontinued Medications: Warfarin (Coumadin) 3 Mg Tab 3 MG PO DAILY@1600 for Prevent Blood Clot, #30 TAB 3 Refills Kirk Long DO Jan 20, 2018 15:53
[2018-01-20] MEDS: WARFARIN SOD 3 MG TAB PO SCH (16:00)
--- NOTE | 2018-01-20 18:21 | HHI.PR ---
Subjective Remarks ALERT WEAK NO SOB NOW DNR Objective Vital Signs Date Time Temp Pulse Resp B/P (MAP) Pulse Ox O2 Delivery O2 Flow Rate FiO2 01/20/18 15:04 98.2 98 18 107/81 (90) 99 01/20/18 14:20 97.8 100 18 118/78 (91) 94 01/20/18 12:00 98.0 96 22 123/89 (100) 96 01/20/18 12:00 96 01/20/18 11:00 93 01/20/18 10:00 95 01/20/18 09:00 100 01/20/18 08:45 96 Nasal Cannula 2.00 01/20/18 08:00 98.0 94 22 107/79 (88) 97 01/20/18 08:00 94 01/20/18 07:00 94 01/20/18 04:00 96 01/20/18 04:00 98.1 96 20 146/84 (104) 54 01/20/18 02:00 100 01/20/18 00:00 98.3 101 22 127/81 (96) 98 01/20/18 00:00 101 01/19/18 22:00 113 01/19/18 20:00 100 01/19/18 20:00 98.1 100 35 132/90 (104) 98 01/19/18 19:49 96 Nasal Cannula 2.00 I/O 01/19/18 01/19/18 01/19/18 01/20/18 01/20/18 01/20/18 07:00 15:00 23:00 07:00 15:00 23:00 Intake Total 434 ml 350 ml 1000 ml Balance 434 ml 350 ml 1000 ml Intake IV Total 100 ml 1000 ml FFP 294 ml 300 ml Blood Product IV Normal Saline Flush 40 ml 50 ml Result Diagram: 01/20/1852 01/20/1852 Objective Remarks GENERAL: SKIN: Warm and dry. HEAD: Atraumatic. Normocephalic. EYES: Pupils equal and round. No scleral icterus. No injection or drainage. ENT: No nasal bleeding or discharge. Mucous membranes pink and moist. NECK: Trachea midline. No JVD. CARDIOVASCULAR: Regular rate and rhythm. RESPIRATORY: No accessory muscle use. DECREASE BREATH SOUNDS AT BASIS GASTROINTESTINAL: Abdomen soft, non-tender, nondistended. Hepatic and splenic margins not palpable. MUSCULOSKELETAL: Extremities without clubbing, cyanosis, or edema. No obvious deformities. NEUROLOGICAL: Awake and alert. No obvious cranial nerve deficits. Motor grossly within normal limits. Five out of 5 muscle strength in the arms and legs. Normal speech. PSYCHIATRIC: Appropriate mood and affect; insight and judgment normal. Assessment and Plan Assessment and Plan IMPRESSION BILATERAL PLEURAL EFFUSINS B CELL LYMPHOMA SEVERE CACHEXIA PLAN NOW DNR TC NEEDED PALLIATIVE CARE Monique Amaya MD Jan 20, 2018 18:21
[2018-01-20 19:28] LABS: TOTAL PROTEIN,PLEURAL FLUID 2.5 GM/DL
[2018-01-20 20:35] LABS: PLEURAL FLUID HISTIOCYTES 3 %; PLEURAL FLUID LYMPHS 51 %; PLEURAL FLUID MONOS 1 %; PLEURAL FLUID POLYS (SEGS) 45 %
[2018-01-20 20:36] LABS: PLEURAL FLUID RBC 740 /MM3 (0-0); PLEURAL FLUID WBC 717 /MM3 (0-10)
[2018-01-22 13:42] LABS: AMYLASE BODY FLUID 23 U/L; AMYLASE BODY FLUID TYPE PLEURAL
== END 2018-01-20 22:00 | disposition hospice, inpatient (51) | DRG 871 ==
LOC: NEPE 21:26 → NEDA 01-19 00:32 → HIMN 01-19 02:35
PROVIDERS: ADMIT Hospitalist; ATTEND Hospitalist
PROC: 30233K1 Transfusion of Nonautologous Frozen Plasma into Peripheral Vein, Percutaneous Approach (ICD-10-PCS; principal; 2018-01-19)
PROC: 0W993ZZ Drainage of Right Pleural Cavity, Percutaneous Approach (ICD-10-PCS; 2018-01-20)
DX: A41.9 Sepsis, unspecified organism (principal); J96.91 Respiratory failure, unspecified with hypoxia; E43 Unspecified severe protein-calorie malnutrition; R64 Cachexia; J91.0 Malignant pleural effusion; C83.34 Diffuse large B-cell lymphoma, lymph nodes of axilla and upper limb; I42.9 Cardiomyopathy, unspecified; Z68.1 Body mass index [BMI] 19.9 or less, adult; I48.91 Unspecified atrial fibrillation; I10 Essential (primary) hypertension; G47.30 Sleep apnea, unspecified; R59.0 Localized enlarged lymph nodes; Z66 Do not resuscitate; Z51.5 Encounter for palliative care; D70.3 Neutropenia due to infection; M54.9 Dorsalgia, unspecified; E03.9 Hypothyroidism, unspecified; Z86.711 Personal history of pulmonary embolism; Z87.891 Personal history of nicotine dependence; Z92.21 Personal history of antineoplastic chemotherapy; Z86.14 Personal history of Methicillin resistant Staphylococcus aureus infection; Z79.01 Long term (current) use of anticoagulants
CPT/HCPCS: 32555; 36430; 71045; 80053; 82150; 82550; 82552; 82945; 83605; 83615; 83986; 84157; 84484; 85025; 85027; 85610; 85730; 86140; 86927; 87015; 87040; 87070; 87102; 87116; 87205; 87206; 87641; 88112; 88305; 89051; 94640; 94664; 96374; C1729; J0692; J2270; J7030; J7042; P9017